=== PATIENT | female | born 1955 | race Caucasian/White ===

== ENCOUNTER 2020-10-15 08:10 | Emergency (ER) | payer MEDICARE, MEDICAID, SELFPAY ==
--- NOTE | 2020-10-15 08:27 | ECG_ITS ---
Test Reason : DIZZINESS Blood Pressure : / mmHG Vent. Rate : 071 BPM Atrial Rate : 071 BPM P-R Int : 164 ms QRS Dur : 108 ms QT Int : 442 ms P-R-T Axes : 042 -04 183 degrees QTc Int : 480 ms Normal sinus rhythm Incomplete left bundle branch block Left ventricular hypertrophy with repolarization abnormality Abnormal ECG When compared with ECG of 06-JAN-2020 15:30, No significant change was found Referred By: Margo Ayala Electronically Signed By:LUCRECIA PILLAI MD
--- NOTE | 2020-10-15 08:45 | XR_ITS ---
EXAMINATION: XR CHEST CLINICAL INFORMATION: Weakness COMPARISON: February 25, 2020, January 06, 2020, and January 01, 2020. TECHNIQUE: 2 views of the chest were obtained. FINDINGS: There is no evidence of acute parenchymal disease, pneumothorax, or pleural effusion. Heart normal size. No evidence of pulmonary edema. There is a prominent right pericardial fat pad seen. Degenerative marginal spurring is seen within multiple levels of the thoracic spine. XR/XR chest 2V IMPRESSION: No acute disease.
[2020-10-15 09:02] VITALS: BP 101/39; PULSE 69; RESP 16; TEMP 36.8; O2SAT 98; BMI 36.3
--- NOTE | 2020-10-15 09:22 | ED.DIZZY ---
HPI - Dizziness General Chief Complaint: Dizziness Stated Complaint: dizzy Time Seen by Provider: 10/15/20 08:27 Source: patient and putty remover Mode of arrival: wheelchair Limitations: language barrier History of Present Illness HPI Narrative: 65-year-old female with a past medical history of insulin-dependent diabetes, hypertension, hyperlipidemia, CKD . The patient also for the last 2 weeks she has felt generally unwell with malaise, dizziness with position changes, right arm pain. She tells me she has actually had right arm pain for several months and this is secondary to a fall. She was seen in this emergency department and had x-rays which were unremarkable. No new injury or trauma. She denies any chest pain, shortness of breath, vision changes, vomiting, diarrhea, cough, fevers, chills, body aches. She is wheelchair-bound at baseline. MD elicited complaint: lightheadedness Onset (ago): week(s) Timing: gradual onset Severity: mild Description: lightheadedness Exacerbating factors: movement/ambulation Relieving factors: remaining still Associated symptoms: other (weakness ) Related Data Previous Rx's Medication Instructions Recorded furosemide 20 mg tablet 20 mg PO DAILY #30 tab 09/15/20 Allergies Allergy/AdvReac Type Severity Reaction Status Date / Time latex [LATEX] Allergy Intermediate ITCHY Verified 10/15/20 10:54 latex Allergy Mild Rash Uncoded 10/15/20 10:55 Review of Systems Review of Systems: Yes all other systems are reviewed and are negative Constitutional: Constitutional: Reports no additional constitutional complaints, Denies body ache(s), Denies chills, Denies fever(s), Denies headache(s) and Reports weakness Eyes: Eyes: Reports no additional eye complaints and Denies change in vision ENT: Reports system reviewed and no additional complaints, except as documented, Reports dizziness, Denies headache(s), Denies nasal congestion, Denies nasal discharge and Denies neck pain Cardiovascular: Cardiovascular: Reports no additional cardiovascular complaints, Denies chest pain, Denies leg edema and Denies dyspnea Respiratory: Respiratory: Reports no additional respiratory complaints, Denies cough and Denies dyspnea Gastrointestinal: Gastrointestinal: Reports no additional gastrointestinal complaints, Denies abdominal pain, Denies diarrhea, Denies nausea and Denies vomiting Genitourinary: Genitourinary: Reports no additional female genitourinary complaints and Denies urinary incontinence Musculoskeletal: Musculoskeletal: Reports no additional musculoskeletal complaints, Denies back pain, Reports arthralgias, Denies joint swelling, Denies neck pain, Denies numbness and Denies tingling Integumentary/Breasts: Skin/Breast: Reports system reviewed and no additional complaints, except as docu and Denies rash Neurologic: Reports system reviewed and no additional complaints, except as documented, Denies Abnormal speech present, Reports dizziness, Denies headache(s), Denies numbness, Denies tingling and Reports weakness PMFSH Past Medical History Attestation statement: The following information was validated with the patient. Source: old records reviewed and nursing notes reviewed Medical History Cholecystectomy planned Diabetes Hernia Hypertension Surgical History H/O: hysterectomy Social History Social History Smoking Status: Never smoker Use of substances other than those prescribed or required for medical reasons: No Advance Directives: No Advance Directives Information Provided: No Physical Exam Vital Signs: Vital Signs: Last Vital Signs Temp 98.2 F 10/15/20 13:28 Pulse 68 10/15/20 14:25 Resp 13 10/15/20 14:25 BP 162/67 H 10/15/20 14:25 Pulse Ox 97 10/15/20 14:25 Body Mass Index 36.3 Const: General: cooperative, healthy appearing, comfortable and no acute distress Orientation/consciousness: patient oriented x3 Limitations: no limitations HENMT: Head: Yes normal to inspection Ears: hearing grossly normal bilaterally General nose exam: Normal external nose present Face and sinus: Yes normal facial exam Mouth: Normal oral and palatal mucosa present Throat: Yes posterior oropharynx normal Eyes: General: appearance normal, both eyes and all related structures Pupils: Equal, round and reactive pupils present Neck: Neck: Yes normal visual inspection Chest: Chest palpation & inspection: normal inspection of the chest Resp: Effort & Inspection: normal respiratory effort Auscultation: clear to auscultation bilaterally Cardio: Rate: regular rate Rhythm: regular rhythm Peripheral pulses: Peripheral pulses 2+ throughout GI: Inspection: Yes normal to inspection Palpation (GI): Soft to palpation and nontender Auscultation: normal bowel sounds Back/Spine/Pelvis: Other: Left AKA Right upper arm tenderness with no obvious deformity or swelling. When patient is talking I was able to palpate the area with no pain elicited. Full range of motion. Neurovascularly intact distally. Thoracic/Lumbar Spine: thoracic and lumbar spine normal to inspection Skin: General skin exam: no rashes or lesions noted Neuro: General: patient oriented x3, no focal motor deficits, normal sensation to monofilament and Unable to assess gait Cranial nerves: Yes Equal, round and reactive pupils present Cognition (Neuro): normal cognition Speech: No Abnormal speech present Gait exam (Neuro): Unable to assess gait Motor exam (neuro): 5/5 motor strength present throughout Sensory Exam: Normal double simultaneous stimulation for sensation Coordination: [id number] test normal Extrem: General: Yes normal to inspection Course Course Course Narrative: 65-year-old female here with lightheadedness with position changes, general malaise and weakness for several weeks. Stable vital signs. No neurological deficits on exam. Unable to assess gait or heel to stark as patient is wheelchair-bound at baseline and has a left AKA. [id number] is normal. Unable to perform orthostatics d/t same. Will check labs, EKG, UA, COVID testing. 1044-renal function at baseline. Elevated potassium at 6.2. No history of same per patient or on review of chart. ? hemolysis. Patient also has the mildly decreased bicarb. Will plan to repeat potassium and check VBG. No EKG changes. 500ml normal saline bolus ordered. Patient has a mild leukocytosis. Her chest x-ray is unremarkable. Urine is pending. Of note, the patient does not have any previous recordings of hyperkalemia. She is taking veltassa 16.8g every other day per patient. 1250-VBG unremarkable. Repeat potassium 5.4. Will give dose of Kayexalate here. All other imaging unremarkable. Patient is feeling improved after receiving a small NSB. Will discuss with primary care doctor Dr Gillis. 1300-d/w with PCP who tells me the patient's veltassa is managed by renal Dr Galeana. Call out to discuss. 1545-discussed with Dr. Galeana from renal. Believes high potassium to be dietary related. Recommended continue Veltassa, following low potassium diet. He is seeing the patient in the office 10/21 and requested repeat potassium prior to visit. Lab slip provided to patient. Additional labs reviewed and unremarkable. Second troponin unchanged from previous. UA negative. COVID test negative. CXR unremarkable. Patient's symptoms of lightheadeness and weakness improved on discharge. Reviewed worrisome signs and symptoms and when to return to the emergency department. Comfortable discharge home. MDM - Dizziness MDM Narrative Medical decision making narrative: ACS, orthostatic hypotension, anemia, electrolyte abnormality, dehydration, underlying infection (UTI, PNA). Less likely ACS with delta troponin, no EKG changes, no reports of chest pain. Less likely anemia with normal labs. Less likely underlying UTI or pneumonia with negative UA and chest x-ray. Unable to rule out orthostatic hypotension as patient is unable to cooperate for exam. Medical Records Attestation: I reviewed the patient's medical records. Lab Data Attestation: I reviewed the patient's lab results. Result diagrams: 10/15/20 09:22 10/15/20 11:46 Labs: Lab Results 10/15/20 10/15/20 10/15/20 Range/Units 09:22 09:22 09:22 WBC 12.3 H (4.8-10.8) X10*3/uL RBC 4.13 L (4.20-5.50) X10*6/uL Hgb 11.1 L (12.0-16.0) g/dl Hct 34.2 L (37-47) % MCV 82.8 (80-98) fL MCH 26.9 L (27.0-33.0) pg MCHC 32.5 (31.0-35.0) g/dl RDW 12.3 (11.0-16.0) % Plt Count 226 (160-400) X10*3/uL MPV 10.7 (9.4-12.3) fL Immature Gran % (Auto) 0.2 (0.0-0.4) % Neut % (Auto) 76.4 H (45-73) % Lymph % (Auto) 15.6 L (20-40) % Cotton % (Auto) 6.7 (2-11) % Eos % (Auto) 0.9 (0-4) % Baso % (Auto) 0.2 (0-2) % Lymph # (Auto) 1.9 (1.2-4.9) X10*3/uL Cotton # (Auto) 0.8 (0.1-1.2) X10*3/uL Eos # (Auto) 0.1 (0.0-0.4) X10*3/uL Baso # (Auto) 0.0 (0.0-0.2) X10*3/uL Abs Immat Gran (auto) 0.03 (0.00-0.03) X10*3/uL Absolute Neuts (auto) 9.4 H (2.0-8.3) X10*3/uL Absolute Nucleated RBC 0.000 (0.0-0.012) X10*3/uL Nucleated RBC % (auto) 0.0 (0.0-0.2) /100WBC Hold Blue Top SEE NOTE VBG pH (7.32-7.43) VBG pCO2 mmHg VBG pO2 mmHg VBG HCO3 mmol/L VBG O2 Saturation % VBG Base Excess mmol/L Sodium 137 (135-145) mmol/L Potassium 6.2 H* (3.3-5.1) mmol/l Chloride 108 (96-108) mmol/L Carbon Dioxide 19 L (22-29) mmol/L Anion Gap 16 (12-20) BUN 43 H (9-16) mg/dL Creatinine 2.84 H (0.5-1.4) mg/dL Estim Creat Clear Calc 17.0 Estimated GFR 17 Random Glucose 190 H (60-115) mg/dL Calcium 8.5 (8.4-10.2) mg/dL Magnesium 1.6 (1.6-2.6) mg/dL Total Bilirubin 0.2 (0.0-1.0) mg/dL Direct Bilirubin < 0.2 (0.0-0.5) mg/dL AST 15 (5-31) U/L ALT 13 (0-31) U/L Alkaline Phosphatase 116 (39-117) U/L Troponin I High Sens (<3.5-17.0) ng/L Total Protein 7.0 (6.5-8.0) g/dL Albumin 3.4 L (3.5-5.0) g/dL Urine Color Urine Appearance Urine pH (5.0-8.0) Ur Specific [place] (1.005-1.025) Urine Protein (NEG-TRACE) MG/DL Urine Glucose (UA) (NEG) MG/DL Urine Ketones (NEG) MG/DL Urine Blood (NEG) Urine Nitrite (NEG) Ur Leukocyte Esterase (NEG) Urine RBC (0) /HPF Urine WBC (0-4) /HPF Ur Squamous Epith Cells /LPF Urine Bacteria /LPF COVID-19 (LUCIUS) (Negative) COVID-19 Clin Com 10/15/20 10/15/20 10/15/20 Range/Units 09:22 09:22 10:33 WBC (4.8-10.8) X10*3/uL RBC (4.20-5.50) X10*6/uL Hgb (12.0-16.0) g/dl Hct (37-47) % MCV (80-98) fL MCH (27.0-33.0) pg MCHC (31.0-35.0) g/dl RDW (11.0-16.0) % Plt Count (160-400) X10*3/uL MPV (9.4-12.3) fL Immature Gran % (Auto) (0.0-0.4) % Neut % (Auto) (45-73) % Lymph % (Auto) (20-40) % Cotton % (Auto) (2-11) % Eos % (Auto) (0-4) % Baso % (Auto) (0-2) % Lymph # (Auto) (1.2-4.9) X10*3/uL Cotton # (Auto) (0.1-1.2) X10*3/uL Eos # (Auto) (0.0-0.4) X10*3/uL Baso # (Auto) (0.0-0.2) X10*3/uL Abs Immat Gran (auto) (0.00-0.03) X10*3/uL Absolute Neuts (auto) (2.0-8.3) X10*3/uL Absolute Nucleated RBC (0.0-0.012) X10*3/uL Nucleated RBC % (auto) (0.0-0.2) /100WBC Hold Blue Top VBG pH (7.32-7.43) VBG pCO2 mmHg VBG pO2 mmHg VBG HCO3 mmol/L VBG O2 Saturation % VBG Base Excess mmol/L Sodium (135-145) mmol/L Potassium Cancelled (3.3-5.1) mmol/l Chloride (96-108) mmol/L Carbon Dioxide (22-29) mmol/L Anion Gap (12-20) BUN (9-16) mg/dL Creatinine (0.5-1.4) mg/dL Estim Creat Clear Calc Estimated GFR Random Glucose (60-115) mg/dL Calcium (8.4-10.2) mg/dL Magnesium (1.6-2.6) mg/dL Total Bilirubin (0.0-1.0) mg/dL Direct Bilirubin (0.0-0.5) mg/dL AST (5-31) U/L ALT (0-31) U/L Alkaline Phosphatase (39-117) U/L Troponin I High Sens 22.2 H (<3.5-17.0) ng/L Total Protein (6.5-8.0) g/dL Albumin (3.5-5.0) g/dL Urine Color Urine Appearance Urine pH (5.0-8.0) Ur Specific [place] (1.005-1.025) Urine Protein (NEG-TRACE) MG/DL Urine Glucose (UA) (NEG) MG/DL Urine Ketones (NEG) MG/DL Urine Blood (NEG) Urine Nitrite (NEG) Ur Leukocyte Esterase (NEG) Urine RBC (0) /HPF Urine WBC (0-4) /HPF Ur Squamous Epith Cells /LPF Urine Bacteria /LPF COVID-19 (LUCIUS) Negative (Negative) COVID-19 Clin Com See Note 10/15/20 10/15/20 10/15/20 Range/Units 10:50 11:45 11:46 WBC (4.8-10.8) X10*3/uL RBC (4.20-5.50) X10*6/uL Hgb (12.0-16.0) g/dl Hct (37-47) % MCV (80-98) fL MCH (27.0-33.0) pg MCHC (31.0-35.0) g/dl RDW (11.0-16.0) % Plt Count (160-400) X10*3/uL MPV (9.4-12.3) fL Immature Gran % (Auto) (0.0-0.4) % Neut % (Auto) (45-73) % Lymph % (Auto) (20-40) % Cotton % (Auto) (2-11) % Eos % (Auto) (0-4) % Baso % (Auto) (0-2) % Lymph # (Auto) (1.2-4.9) X10*3/uL Cotton # (Auto) (0.1-1.2) X10*3/uL Eos # (Auto) (0.0-0.4) X10*3/uL Baso # (Auto) (0.0-0.2) X10*3/uL Abs Immat Gran (auto) (0.00-0.03) X10*3/uL Absolute Neuts (auto) (2.0-8.3) X10*3/uL Absolute Nucleated RBC (0.0-0.012) X10*3/uL Nucleated RBC % (auto) (0.0-0.2) /100WBC Hold Blue Top VBG pH 7.28 L (7.32-7.43) VBG pCO2 43 mmHg VBG pO2 33 mmHg VBG HCO3 20 mmol/L VBG O2 Saturation 54.0 % VBG Base Excess -5.4 mmol/L Sodium (135-145) mmol/L Potassium 5.4 H (3.3-5.1) mmol/l Chloride (96-108) mmol/L Carbon Dioxide (22-29) mmol/L Anion Gap (12-20) BUN (9-16) mg/dL Creatinine (0.5-1.4) mg/dL Estim Creat Clear Calc Estimated GFR Random Glucose (60-115) mg/dL Calcium (8.4-10.2) mg/dL Magnesium (1.6-2.6) mg/dL Total Bilirubin (0.0-1.0) mg/dL Direct Bilirubin (0.0-0.5) mg/dL AST (5-31) U/L ALT (0-31) U/L Alkaline Phosphatase (39-117) U/L Troponin I High Sens (<3.5-17.0) ng/L Total Protein (6.5-8.0) g/dL Albumin (3.5-5.0) g/dL Urine Color YELLOW Urine Appearance CLOUDY Urine pH 6.0 (5.0-8.0) Ur Specific [place] 1.025 (1.005-1.025) Urine Protein 2+ H (NEG-TRACE) MG/DL Urine Glucose (UA) NEG (NEG) MG/DL Urine Ketones NEG (NEG) MG/DL Urine Blood NEG (NEG) Urine Nitrite NEG (NEG) Ur Leukocyte Esterase 1+ H (NEG) Urine RBC 0-2 (0) /HPF Urine WBC TNTC H (0-4) /HPF Ur Squamous Epith Cells 2+ /LPF Urine Bacteria 4+ /LPF COVID-19 (LUCIUS) (Negative) COVID-19 Clin Com 10/15/20 Range/Units 15:15 WBC (4.8-10.8) X10*3/uL RBC (4.20-5.50) X10*6/uL Hgb (12.0-16.0) g/dl Hct (37-47) % MCV (80-98) fL MCH (27.0-33.0) pg MCHC (31.0-35.0) g/dl RDW (11.0-16.0) % Plt Count (160-400) X10*3/uL MPV (9.4-12.3) fL Immature Gran % (Auto) (0.0-0.4) % Neut % (Auto) (45-73) % Lymph % (Auto) (20-40) % Cotton % (Auto) (2-11) % Eos % (Auto) (0-4) % Baso % (Auto) (0-2) % Lymph # (Auto) (1.2-4.9) X10*3/uL Cotton # (Auto) (0.1-1.2) X10*3/uL Eos # (Auto) (0.0-0.4) X10*3/uL Baso # (Auto) (0.0-0.2) X10*3/uL Abs Immat Gran (auto) (0.00-0.03) X10*3/uL Absolute Neuts (auto) (2.0-8.3) X10*3/uL Absolute Nucleated RBC (0.0-0.012) X10*3/uL Nucleated RBC % (auto) (0.0-0.2) /100WBC Hold Blue Top VBG pH (7.32-7.43) VBG pCO2 mmHg VBG pO2 mmHg VBG HCO3 mmol/L VBG O2 Saturation % VBG Base Excess mmol/L Sodium (135-145) mmol/L Potassium (3.3-5.1) mmol/l Chloride (96-108) mmol/L Carbon Dioxide (22-29) mmol/L Anion Gap (12-20) BUN (9-16) mg/dL Creatinine (0.5-1.4) mg/dL Estim Creat Clear Calc Estimated GFR Random Glucose (60-115) mg/dL Calcium (8.4-10.2) mg/dL Magnesium (1.6-2.6) mg/dL Total Bilirubin (0.0-1.0) mg/dL Direct Bilirubin (0.0-0.5) mg/dL AST (5-31) U/L ALT (0-31) U/L Alkaline Phosphatase (39-117) U/L Troponin I High Sens 20.6 H (<3.5-17.0) ng/L Total Protein (6.5-8.0) g/dL Albumin (3.5-5.0) g/dL Urine Color Urine Appearance Urine pH (5.0-8.0) Ur Specific [place] (1.005-1.025) Urine Protein (NEG-TRACE) MG/DL Urine Glucose (UA) (NEG) MG/DL Urine Ketones (NEG) MG/DL Urine Blood (NEG) Urine Nitrite (NEG) Ur Leukocyte Esterase (NEG) Urine RBC (0) /HPF Urine WBC (0-4) /HPF Ur Squamous Epith Cells /LPF Urine Bacteria /LPF COVID-19 (LUCIUS) (Negative) COVID-19 Clin Com Imaging Data Chest x-ray: Attestation: I personally reviewed and interpreted this imaging study as follows: Radiologist's impression: [address] [address] XRay Report Signed Patient: Debbie GuerraMR#: [id number] : 3Acct:[id number] Age/Sex: 65 / FADM Date: 10/15/20 Loc: [facility] Attending Dr: Ordering Physician: KEITH EARL NP Date of Service: 10/15/20 Procedure(s): XR chest 2V Accession Number(s): [id number] cc: KEITH EARL NP~ EXAMINATION: XR CHEST CLINICAL INFORMATION: Weakness COMPARISON: February 25, 2020, January 06, 2020, and January 01, 2020. TECHNIQUE: 2 views of the chest were obtained. FINDINGS: There is no evidence of acute parenchymal disease, pneumothorax, or pleural effusion. Heart normal size. No evidence of pulmonary edema. There is a prominent right pericardial fat pad seen. Degenerative marginal spurring is seen within multiple levels of the thoracic spine. XR/XR chest 2V IMPRESSION: No acute disease. ECG Data Attestation: I personally reviewed and interpreted this ECG as follows: ECG interpretation date: 10/15/20 ECG interpretation time: 08:29 Interpretation: NSR rate 71, incomplete LBBB not new, T wave depressions leads 1, 2, v4, v5, v6 and avl unchanged from previous 01/06/20 Discharge Plan Discharge Clinical Impression: Acute hyperkalemia Patient Disposition: Home, Self-Care Instructions: Hyperkalemia (ED) Additional Instructions: Low potassium diet Continue your medications Keep your appointment 10/[address] Galeana from nephrology I have given you a lab slip to have your labs checked before going to your appointment. Prescriptions: No Action furosemide 20 mg tablet 20 mg PO DAILY Qty: 30 RF: 4 Referrals: Alexys Avila MD [Primary Care Provider] - 2 days Interventions: ED Discharge Assessment Last Done: 10/15/20 17:02 Discharge Date/Time: 10/15/20 17:02
[2020-10-15 09:29] LABS: MANUAL DIFF FLAG NO
[2020-10-15 09:33] LABS: Basophils Percent Auto 0.2 % (0-2); Eosinophils Absolute Auto 0.1 X10*3/uL (0.0-0.4); Eosinophils Percent Auto 0.9 % (0-4); Hematocrit 34.2 % (37-47); Hemoglobin 11.1 g/dl (12.0-16.0); Imm Gran Abs Auto 0.03 X10*3/uL (0.00-0.03); Imm Gran Pct Auto 0.2 % (0.0-0.4); Lymphocytes Absolute Auto 1.9 X10*3/uL (1.2-4.9); Lymphocytes Percent Auto 15.6 % (20-40); Mean Corpuscular HGB Conc 32.5 g/dl (31.0-35.0); Mean Corpuscular Hemoglobin 26.9 pg (27.0-33.0); Mean Corpuscular Volume 82.8 fL (80-98); Mean Platelet Volume 10.7 fL (9.4-12.3); Monocytes Absolute Auto 0.8 X10*3/uL (0.1-1.2); Monocytes Percent Auto 6.7 % (2-11); Neutrophils Absolute Auto 9.4 X10*3/uL (2.0-8.3); Neutrophils Percent Auto 76.4 % (45-73); Platelet Count 226 X10*3/uL (160-400); Red Blood Count 4.13 X10*6/uL (4.20-5.50); Red Cell Distribution Width 12.3 % (11.0-16.0); White Blood Count 12.3 X10*3/uL (4.8-10.8)
[2020-10-15 09:57] LABS: IDNOW Serial# 9DD0AD1C
[2020-10-15 09:58] LABS: COVID-19 Test Negative (Negative)
[2020-10-15 10:06] VITALS: BP 138/57; PULSE 67; RESP 17; O2SAT 99
[2020-10-15 10:15] LABS: Troponin-I High Sensitivity 22.2 ng/L (<3.5-17.0)
[2020-10-15 10:16] LABS: Alanine Aminotransferase 13 U/L (0-31); Albumin Level 3.4 g/dL (3.5-5.0); Alkaline Phosphatase 116 U/L (39-117); Anion Gap 16 (12-20); Aspartate Amino Transferase 15 U/L (5-31); Bilirubin Direct < 0.2 mg/dL (0.0-0.5); Bilirubin Total 0.2 mg/dL (0.0-1.0); Blood Urea Nitrogen 43 mg/dL (9-16); Calcium 8.5 mg/dL (8.4-10.2); Carbon Dioxide 19 mmol/L (22-29); Chloride 108 mmol/L (96-108); Estimated Glomerular Filt Rate 17; Glucose Random 190 mg/dL (60-115); Magnesium 1.6 mg/dL (1.6-2.6); Potassium 6.2 mmol/l (3.3-5.1); Sodium 137 mmol/L (135-145)
[2020-10-15] MEDS: 0.9 % Sodium Chloride 500 ML 999 ML IV (10:43)
[2020-10-15 11:00] LABS: Base Excess VBG -5.4 mmol/L; HCO3 VBG 20 mmol/L; PCO2 VBG 43 mmHg; PO2 VBG 33 mmHg; pH VBG 7.28 (7.32-7.43)
--- NOTE | 2020-10-15 11:20 | PC.NURSE ---
bm x 1 (brown, soft ) in toilet via w/c.
--- NOTE | 2020-10-15 11:34 | PC.NURSE ---
pt has a l bka. pt placed in a w/c and is in the bathroom trying to get urine.
[2020-10-15 11:48] VITALS: BP 98/52; PULSE 71; RESP 18; TEMP 36.7; O2SAT 100
[2020-10-15 12:04] LABS: Glucose Urine UA NEG (NEG); Leukocyte Esterase Urine 1+ (NEG); Nitrite Urine NEG (NEG); Specific Gravity - Urine 1.025 (1.005-1.025); Urine Blood NEG (NEG); Urine Ketones NEG (NEG); Urine Protein 2+ MG/DL (NEG-TRACE)
[2020-10-15 12:07] LABS: Appearance Urine CLOUDY; Color Urine YELLOW
[2020-10-15 12:20] LABS: Potassium 5.4 mmol/l (3.3-5.1)
[2020-10-15 12:53] LABS: Bacteria Urine 4+ /LPF; RBC Urine 0-2 /HPF (0); Squamous Epithelial Cell Urine 2+ /LPF; WBC Urine TNTC /HPF (0-4)
[2020-10-15 13:28] VITALS: BP 154/50; PULSE 69; RESP 14; TEMP 36.8; O2SAT 97
[2020-10-15] MEDS: Sodium Polystyrene Sulfon/Sorb 15 GM/60 ML ORAL.SUSP 30 GM PO (13:30)
[2020-10-15 14:25] VITALS: BP 162/67; PULSE 68; RESP 13; O2SAT 97
--- NOTE | 2020-10-15 15:08 | PC.NURSE ---
Pt incont of moderate amount of liquid stool- parker care provided, linen changed.
[2020-10-15 16:01] LABS: Troponin-I High Sensitivity 20.6 ng/L (<3.5-17.0)
== END 2020-10-15 17:02 | disposition home or self-care (01) ==
PROVIDERS: Nurse Practitioner Family; Emergency Provider Emergency Medicine Emergency Medical Services; PCP Internal Medicine
DX: E23.2 Diabetes insipidus (principal); R42 Dizziness and giddiness; I10 Essential (primary) hypertension; Z20.822 Contact with and (suspected) exposure to COVID-19; Z79.899 Other long term (current) drug therapy; Z79.4 Long term (current) use of insulin
CPT/HCPCS: 36415; 71046; 80048; 80076; 81001; 81003; 82803; 83735; 84132; 84484; 85025; 87086; 87088; 87186; 87635; 93005; 99284

== ENCOUNTER → 2020-11-05 10:36 | Outpatient (BNVA) | payer MEDICARE, MEDICAID, SELFPAY | PROVIDERS: PCP Internal Medicine; Referring Provider Internal Medicine; Visit Provider Nurse Practitioner | DX: Z13.89 Encounter for screening for other disorder (principal) | CPT/HCPCS: Q3014 ==

== ENCOUNTER 2020-11-10 09:31 | Emergency (ER) | payer MEDICARE, MEDICAID, SELFPAY ==
[2020-11-10 09:43] VITALS: BP 91/33; PULSE 70; PULSE 80; RESP 18; TEMP 36.6; O2SAT 97; BMI 38.2
[2020-11-10 11:33] VITALS: BP 137/55; PULSE 67; RESP 14; TEMP 36.6; O2SAT 97
--- NOTE | 2020-11-10 12:04 | ED_ITS ---
HPI - General Adult General Chief complaint: Eye Problems Stated complaint: ELOISA EYE PAIN,LOW BP Time Seen by Provider: 11/10/20 09:42 Source: patient Mode of arrival: ambulatory Limitations: no limitations History of Present Illness HPI narrative: 65-year-old female who presents emergency department for evaluation of a burning sensation in both eyes with yellowish discharge x7 days and foul-smelling urine. The patient states that she has been having a burning sensation in both eyes for the past 7 days. He states the symptoms have gotten worse. She states that she has also noticed a yellowish discharge from both eyes. She denies any pain in her eyes. She denies any change in her vision. She states she gets occasional headaches, she denied nausea or vomiting. She denied fever, chills, cough, rhinorrhea. She states that she has noticed a change in the odor of her urine. She states she has a very foul smell to her urine which is unusual. She denied frequency, urgency or dysuria. The patient states she has a history of laser eye surgery for retinal bleed. Related Data Previous Rx's Medication Instructions Recorded furosemide 20 mg tablet 20 mg PO DAILY #30 tab 09/15/20 metoclopramide HCl 5 mg tablet 5 mg PO QIDACHS 30 Days #120 tab 10/15/20 omeprazole 40 mg capsule,delayed 40 mg PO BID 30 Days #60 cap 11/05/20 release sucralfate 1 gram tablet 2 g PO DAILY 30 Days #60 tab 11/05/20 nitrofurantoin monohyd/m-cryst 100 mg PO Q12H 10 Days #20 cap 11/10/20 [Macrobid] sulfacetamide sodium [Bleph-10] 2 drp OPHTHALMIC (EYE) QID 7 Days 11/10/20 #15 ml Allergies Allergy/AdvReac Type Severity Reaction Status Date / Time latex [LATEX] Allergy Intermediate ITCHY Verified 11/05/20 10:37 Review of Systems Review of Systems: Yes all other systems are reviewed and are negative Neurologic: Reports Abnormal speech present PMFSH Past Medical History PMFSH Narrative: The patient denies tobacco, alcohol and drug use. She lives at home with her family. Medical History Cholecystectomy planned Diabetes Hernia Hypertension Surgical History H/O: hysterectomy History of esophagogastroduodenoscopy (EGD) Hx of colonoscopy Hx of eye surgery Family History Family History Father Lung cancer Mother Diabetes HTN (hypertension) Heart disease Sister Diabetes Heart disease Brother Heart disease Son Diabetes Daughter Diabetes Social History Social History Alcohol intake: current Alcohol intake frequency: does not drink Smoking Status: Never smoker Advance Directives: No Advance Directives Information Provided: No Physical Exam Vital Signs: Vital Signs: Last Vital Signs Temp 97.9 F 11/10/20 11:33 Pulse 78 11/10/20 14:06 Resp 19 11/10/20 14:06 BP 155/76 H 11/10/20 14:06 Pulse Ox 98 11/10/20 14:06 Body Mass Index 38.2 Const: General: cooperative and healthy appearing Orientation/consciousness: oriented to person and oriented to place Limitations: no limitations HENMT: Head: Yes normal to inspection, Yes normocephalic and Yes atraumatic Ears: external ears normal General nose exam: Normal external nose present Face and sinus: Yes normal facial exam Mouth: Normal oral and palatal mucosa present Throat: Yes posterior oropharynx normal Eyes: Periorbital: periorbital findings normal Eyelids: Yes eyelids normal Conjunctivae: conjunctivae normal Sclerae: scleral abnormal bilateral scleral injection diffuse and other (Bilateral yellowish discharge noted on the patient's eyelashes) Corneas: corneas normal Pupils: Equal, round and reactive pupils present Direct Ophthalmoscopy: normal light reflex Neck: Neck: Yes full ROM, Yes no lymphadenopathy, Yes no meningeal signs, Yes trachea midline and Yes supple Chest: Chest palpation & inspection: normal inspection of the chest and normal palpation of entire chest wall Resp: Effort & Inspection: normal respiratory effort and able to speak in complete sentences Auscultation: clear to auscultation bilaterally Cardio: Rate: regular rate Rhythm: regular rhythm Heart sounds: S1 normal heart sound present, S2 normal heart sound present and no murmurs GI: Inspection: Yes normal to inspection Palpation (GI): Soft to palpation, nontender, no guarding, not rigid and No hepatosplenomegaly present : General: Yes no CVA tenderness Back/Spine/Pelvis: Back: no CVA tenderness Cervical Spine: normal cervical lordosis Thoracic/Lumbar Spine: thoracic and lumbar spine normal to inspection Skin: Lesions: no lesions Rashes: no rashes Wounds: no wounds Neuro: General: oriented to person, oriented to place and no meningeal signs Cranial nerves: Yes CN's II-XII intact bilaterally and Yes Equal, round and reactive pupils present Cognition (Neuro): normal cognition Speech: Abnormal speech present Motor exam (neuro): 5/5 motor strength present throughout Extrem: General: Yes normal to inspection and Yes full ROM Psych: Appearance: well kempt Mental Status: mental status grossly normal Speech and movement: Normal speech and movement present Affect: normal af fect Attitude: cooperative Thought process: Normal thought process present Thought content: Normal thought content present Course Course Course Narrative: 65-year-old female who presents emergency department for evaluation of burning in both her eyes with a yellowish discharge x1 week and change in the odor of her urine. Physical examination is consistent with bilateral conjunctivitis. The patient's urinalysis did reveal 2+ leukocyte esterase, microscopic field 10-14 WBCs and 3+ bacteria. The patient had a E coli urinary tract on 10/15/2020 which was sensitive to ceftriaxone, gentamicin, levofloxacin and Macrobid. The patient was given Macrobid 1 tablet orally. She was started on Macrobid 1 pill twice a day for 10 days. I will treat her conjunctivitis with Bleph 10 eyedrops, 2 drops in each eye 4 times a day for 1 week. Patient was given verbal and printed instructions and discharged home. Medical Decision Making Lab Data Labs: Lab Results 11/10/20 Range/Units 13:21 Urine Color YELLOW Urine Appearance CLOUDY Urine pH 6.0 (5.0-8.0) Ur Specific [place] 1.025 (1.005-1.025) Urine Protein 2+ H (NEG-TRACE) MG/DL Urine Glucose (UA) NEG (NEG) MG/DL Urine Ketones NEG (NEG) MG/DL Urine Blood NEG (NEG) Urine Nitrite NEG (NEG) Ur Leukocyte Esterase 2+ H (NEG) Urine RBC 0 (0) /HPF Urine WBC 10-14 H (0-4) /HPF Ur Squamous Epith Cells TRACE /LPF Urine Bacteria 3+ /LPF Discharge Plan Discharge Clinical Impression: Conjunctivitis of both eyes, Urinary tract infection Patient Disposition: Home, Self-Care Instructions: Acute Urinary Retention in Women (ED), Conjunctivitis (ED) Additional Instructions: Your eye exam is consistent with an infection of both eyes. Use Bleph 10, 2 drops in both eyes 4 times a day for 7 days. Your urine is consistent with a urine infection/bladder infection. You received Macrobid 1 dose here in the emergency department Take your next dose of Macrobid this evening. Take Macrobid 1 pill every 12 hours for 10 days to treat your urine infection. Take Tylenol (acetaminophen) 500 mg pills, 2 pills every 4 to 6 hours as needed for pain. Follow-up with your doctor in 2 days. Please return to the emergency department if your symptoms get worse or if you develop any symptoms that are concerning to you. Prescriptions: New sulfacetamide sodium [Bleph-10] 10 % drops 2 drp ophthalmic (eye) QID 7 Days Qty: 15 RF: 0 nitrofurantoin monohyd/m-cryst [Macrobid] 100 mg capsule 100 mg PO Q12H 10 Days Qty: 20 RF: 0 No Action furosemide 20 mg tablet 20 mg PO DAILY Qty: 30 RF: 4 metoclopramide HCl 5 mg tablet 5 mg PO QIDACHS 30 Days Qty: 120 RF: 2 omeprazole 40 mg capsule,delayed release(DR/EC) 40 mg PO BID 30 Days Qty: 60 RF: 6 sucralfate [Carafate] 1 gram tablet 2 g PO DAILY 30 Days Qty: 60 RF: 6 Print Language: [place] Verdean
[2020-11-10 13:36] LABS: Glucose Urine UA NEG (NEG); Leukocyte Esterase Urine 2+ (NEG); Nitrite Urine NEG (NEG); Specific Gravity - Urine 1.025 (1.005-1.025); UACC Culture Trigger YES; Urine Blood NEG (NEG); Urine Ketones NEG (NEG); Urine Protein 2+ MG/DL (NEG-TRACE)
[2020-11-10 13:37] LABS: Appearance Urine CLOUDY; Color Urine YELLOW
[2020-11-10 13:48] LABS: Bacteria Urine 3+ /LPF; RBC Urine 0 /HPF (0); Squamous Epithelial Cell Urine TRACE /LPF
[2020-11-10 14:06] VITALS: BP 155/76; PULSE 78; RESP 19; O2SAT 98
[2020-11-10] MEDS: Nitrofurantoin Monohyd/M-Cryst 100 MG CAPSULE PO (15:29)
== END 2020-11-10 16:33 | disposition home or self-care (01) ==
PROVIDERS: Emergency Provider Emergency Medicine Emergency Medical Services; PCP Internal Medicine
DX: H10.33 Unspecified acute conjunctivitis, bilateral (principal); N39.0 Urinary tract infection, site not specified; R33.9 Retention of urine, unspecified; H57.13 Ocular pain, bilateral; Z79.899 Other long term (current) drug therapy
CPT/HCPCS: 81001; 81003; 87086; 87088; 87186; 99283; 99284

== ENCOUNTER → 2020-12-08 08:59 | Outpatient (BNVA) | payer MEDICARE, MEDICAID, SELFPAY | PROVIDERS: PCP Internal Medicine; Visit Provider Internal Medicine Cardiovascular Disease | DX: R42 Dizziness and giddiness (principal); I95.9 Hypotension, unspecified; I42.8 Other cardiomyopathies; I50.9 Heart failure, unspecified; Z79.82 Long term (current) use of aspirin; Z79.899 Other long term (current) drug therapy | CPT/HCPCS: 99212 ==

== ENCOUNTER 2020-12-24 08:54 | Inpatient (IN) | payer MEDICARE, MEDICAID, SELFPAY ==
[2020-12-24] VITALS (8 sets, daily range): BP systolic 140–188; BP diastolic 64–83; PULSE 62–78; RESP 16–20; TEMP 36.3–36.9; O2SAT 92–98; BMI 33.4; BMI 38.4
--- NOTE | 2020-12-24 | ECG_ITS ---
Test Reason : REPEAT Blood Pressure : / mmHG Vent. Rate : 074 BPM Atrial Rate : 074 BPM P-R Int : 160 ms QRS Dur : 114 ms QT Int : 462 ms P-R-T Axes : 043 004 203 degrees QTc Int : 512 ms Normal sinus rhythm Incomplete left bundle branch block Left ventricular hypertrophy with repolarization abnormality Prolonged QT Abnormal ECG When compared with ECG of 24-DEC-2020 09:19, No significant change was found Referred By: Cory Francis Electronically Signed By:MYESHA FREY
--- NOTE | ~2020-12-24 | NM_ITS ---
Myocardial perfusion study Indication: Cardiomyopathy to evaluate for myocardial ischemia Technique: The patient was brought in for a Lexiscan perfusion study on 12/28/2020. Patient performed low-level exercise and was injected 0.4 mg of Lexiscan intravenously. Within a minute of injection, 30 mCi of sestamibi was given intravenously. Images were obtained using the SPECT gamma camera interlaced with the gating device. Images were obtained in supine position. Resting perfusion study was performed on 12/25/2020. Patient was administered 30 mCi of sestamibi intravenously at rest. Images were then obtained in supine position. Images obtained with and without CT attenuation. Total DLP 107mGy-cm. Images were processed with the software and compared side to side in short axis, horizontal long axis and vertical long axis views. Findings: The stress perfusion study showed non attenuated images show minimally reduced uptake in the distal lateral wall of the LV myocardium. Remainder of the LV myocardium is normally perfused. Attenuation corrected images show normal uptake of radiotracer in all segments of LV myocardium. The gated study shows reduced LV systolic function with calculated LVEF of 25%. LV cavity is mildly dilated size. The gated study shows diffusely reduced wall thickening and contraction of segments. Resting study shows no significant change in perfusion pattern compared to stress perfusion study. Gating at rest reveals diffuse hypokinesis offal wall with ejection fraction at 35%. The findings are consistent with no significant reversible defect suggestive of ischemia.. NM/NM saqib perf SPECT rest & str Impression: 1. Myocardial perfusion imaging study shows normal myocardial perfusion 2. Gated LVEF is 35% 3. Transient ischemic dilatation not present EKG is nondiagnostic for ischemia
--- NOTE | ~2020-12-24 | XR_ITS ---
EXAMINATION: XR CHEST CLINICAL INFORMATION: Chest wall pain COMPARISON: October 15, 2020 TECHNIQUE: Frontal view of the chest was obtained. FINDINGS: There is some patchy disease at the left lung base which may be related to atelectasis. There is some hazy density which may be related to a small left pleural effusion. No pneumothorax. Heart normal size. No evidence of pulmonary edema. XR/XR chest 1V IMPRESSION: Question small left pleural effusion with some retrocardiac disease within the left lower lobe.
--- NOTE | 2020-12-24 09:00 | ED_ITS ---
HPI - URI/Sore Throat General Chief Complaint: General Medical Stated Complaint: SOB Time Seen by Provider: 12/24/20 09:00 Source: patient Mode of arrival: wheelchair Limitations: language barrier (Speak some broken [place]an non destructive testing supervisor present) History of Present Illness HPI Narrative: 65-year-old female with past medical history that is significant for cardiomyopathy, congestive heart failure according to EMR last echo 11/12/2014 showed EF 40-45%, chronic kidney disease, diabetes, diabetes along with other past medical and surgical history as noted below presents today with complaint of 3 days of cough with associated chest pain that is described as worsening with cough and feels like soreness. States she got the 2nd COVID vaccine of the [employer] and unsure if this is related. In addition to this she reports increase shortness of breath over the past couple days. Related Data Home Medications Medication Instructions Recorded Confirmed aspirin 81 mg tablet,delayed 81 mg PO BEDTIME 12/08/20 12/24/20 release calcium carbonate 500 mg (1,250 1 tab PO BID 12/08/20 12/24/20 mg)-vitamin D3 400 unit tablet citalopram 20 mg tablet 20 mg PO DAILY 12/08/20 12/24/20 gabapentin 100 mg capsule 100 mg PO BID 12/08/20 12/24/20 insulin aspart U-100 100 unit/mL 8 - 24 unit SUBCUT TID 12/08/20 12/24/20 (3 mL) subcutaneous pen insulin detemir U-100 100 unit/mL 64 unit SUBCUT DAILY 12/08/20 12/24/20 (3 mL) subcutaneous pen magnesium oxide 400 mg (241.3 mg 400 mg PO BID 12/08/20 12/24/20 magnesium) tablet rosuvastatin 10 mg tablet 10 mg PO BEDTIME 12/08/20 12/24/20 trazodone 50 mg tablet 50 mg PO BEDTIME 12/08/20 12/24/20 Previous Rx's Medication Instructions Recorded metoclopramide HCl 5 mg tablet 5 mg PO QIDACHS 30 Days #120 tab 10/15/20 omeprazole 40 mg capsule,delayed 40 mg PO BID 30 Days #60 cap 11/05/20 release sucralfate 1 gram tablet 2 g PO DAILY 30 Days #60 tab 11/05/20 carvedilol 3.125 mg tablet 3.125 mg PO BID #60 tab 12/08/20 furosemide 20 mg tablet 10 mg PO Q OTHER DAY #20 tab 12/08/20 hydralazine 10 mg tablet 10 mg PO BID #60 tab 12/08/20 Allergies Allergy/AdvReac Type Severity Reaction Status Date / Time latex [LATEX] Allergy Intermediate ITCHY Verified 11/05/20 10:37 Review of Systems Review of Systems: Constitutional: No Weight loss, No Fever, No Chills, No Night Sweats, No Fatigue, No Malaise ENT/Mouth: No Hearing loss, No Ear Pain, No Nasal Congestion, No Sinus Pain, No Hoarseness, No sore throat, No Rhinorrhea, No Swallowing Difficulty Eyes: No Eye Pain, No Swelling, No Redness, No Foreign Body, No Discharge, No Vision Changes Cardiovascular: + Chest Pain, + SOB, No Dyspnea on Exertion, No Orthopnea, No Edema, No Palpitations Respiratory: + Cough, No Sputum, No Wheezing, No Smoke Exposure, No Dyspnea Gastrointestinal: No Nausea, No Vomiting, No Diarrhea, No Constipation, No abdominal Pain, No Hematochezia, No Melena Genitourinary: no irregular bleeding, No Dysuria, No Urinary Frequency, No Hematuria, No Urinary Incontinence, No Urgency, No Flank Pain, No Urinary Flow Changes, No Hesitancy Musculoskeletal: No joint pain, No Myalgias, No Joint Swelling Skin: No Skin Lesions, No rash Neuro: No Weakness, No Numbness, No Paresthesias, No Loss of Consciousness, No Dizziness, No Headache Psych: No Social Issues Heme/Lymph: No Bruising, No Bleeding,No Lymphadenopathy Endocrine: No Polyuria, No Polydipsia, No Temperature Intolerance Yes all other systems are reviewed and are negative [facility] Past Medical History Medical History Cholecystectomy planned CKD (chronic kidney disease) Congestive heart failure Diabetes mellitus Hernia HTN (hypertension) Nonischemic cardiomyopathy Surgical History H/O: hysterectomy History of esophagogastroduodenoscopy (EGD) Hx of colonoscopy Hx of eye surgery Family History Family History Father Lung cancer Mother Diabetes HTN (hypertension) Heart disease Sister Diabetes Heart disease Brother Heart disease Son Diabetes Daughter Diabetes Social History Social History Alcohol intake: never Smoking Status: Never smoker Use of substances other than those prescribed or required for medical reasons: No Advance Directives: No Advance Directives Information Provided: No Physical Exam Vital Signs: Vital Signs: Last Vital Signs Temp 98.1 F 12/24/20 15:36 Pulse 78 12/24/20 15:36 Resp 16 12/24/20 15:36 BP 188/83 H 12/24/20 15:36 Pulse Ox 98 12/24/20 15:36 Body Mass Index 33.4 Reviewed Const: General: comfortable; No acute distress or intoxicated appearing Nutritional Appearance: overweight Orientation/consciousness: patient oriented x3 HENMT: Head: Yes normal to inspection Ears: hearing grossly normal bilaterally Eyes: General: appearance normal, both eyes and all related structures Visual Hammond: normal visual hammond by confrontation Neck: Neck: Yes normal visual inspection, No positive Brudzinski's sign, No positive Kernig's sign and No tender Thyroid: Thyroid normal Chest: Chest palpation & inspection: normal inspection of the chest Resp: Effort & Inspection: normal respiratory effort Auscultation: clear to auscultation bilaterally Cardio: Jugular venous distension: no JVD Rhythm: regular rhythm Heart sounds: S1 normal heart sound present and S2 normal heart sound present GI: Inspection: Yes normal to inspection Palpation (GI): Soft to palpation Percussion: Yes normal to percussion Auscultation: normal bowel sounds : General: Yes no CVA tenderness Back/Spine/Pelvis: Back: no CVA tenderness Skin: General skin exam: no rashes or lesions noted Neuro: General: patient oriented x3 Extrem: General: Yes normal to inspection Course Reevaluation(s) Reevaluation #1: 65-year-old female primarily Icelandic-speaking the non destructive testing supervisor present also daughter Adelita via phone who presents with cough and associated chest pain seems more musculoskeletal as well reports subjective more shortness of breath. No changes in weight. History of HF on the Lasix. Will check labs, EKG chest x-ray at this point in no acute distress home monitor and dispo per plan. Reevaluation #2: Resting comfortably, H&H 8.7 historically in the old EMR she runs anywhere from 8-11. Her K is slightly bumped renal function at baseline BN P at baseline. Will give her dose of Kayexalate, fiber cc of normal saline and 20 mg of IV Lasix. No chest pain or discomfort at this time. EKG nondiagnostic from previous, October troponin 20.6 today 67.2. Given her atypical cardiac symptoms will repeat troponin at 3 hours. Reevaluation #3: Remains without chest pain. Repeat labs after treatment shows improved K, repeat EKG no acute change. Troponin repeat with positive delta 1 from 67-168. Case discussed with cardiology Dr. Vides, recommendation for heparin drip and echo and thus case discussed with hospitalist for admission. Consultations Consultation #1: Cardiology Dr. Vides Consultation #2: Hospitalist Dr. Rodriguez MDM - URI/Sore Throat Lab Data Result diagrams: 12/24/20 09:29 12/24/20 13:32 Labs: Lab Results 12/24/20 12/24/20 12/24/20 Range/Units 09:29 09:29 09:29 WBC 10.4 (4.8-10.8) X10*3/uL RBC 3.37 L (4.20-5.50) X10*6/uL Hgb 8.7 L D (12.0-16.0) g/dl Hct 27.9 L (37-47) % MCV 82.8 (80-98) fL MCH 25.8 L (27.0-33.0) pg MCHC 31.2 (31.0-35.0) g/dl RDW 13.2 (11.0-16.0) % Plt Count 197 (160-400) X10*3/uL MPV 10.3 (9.4-12.3) fL Immature Gran % (Auto) 0.8 H (0.0-0.4) % Neut % (Auto) 66.4 (45-73) % Lymph % (Auto) 22.2 (20-40) % [place] % (Auto) 7.6 (2-11) % Eos % (Auto) 2.7 (0-4) % Baso % (Auto) 0.3 (0-2) % Lymph # (Auto) 2.3 (1.2-4.9) X10*3/uL [place] # (Auto) 0.8 (0.1-1.2) X10*3/uL Eos # (Auto) 0.3 (0.0-0.4) X10*3/uL Baso # (Auto) 0.0 (0.0-0.2) X10*3/uL Abs Immat Gran (auto) 0.08 H (0.00-0.03) X10*3/uL Absolute Neuts (auto) 6.9 (2.0-8.3) X10*3/uL Absolute Nucleated RBC 0.000 (0.0-0.012) X10*3/uL Nucleated RBC % (auto) 0.0 (0.0-0.2) /100WBC PT 12.5 (10.8-13.0) SEC INR 1.1 (0.9-1.1) APTT 30.6 (24.1-38.0) SEC Sodium 141 (135-145) mmol/L Potassium 6.3 H* (3.3-5.1) mmol/L Chloride 111 H (96-108) mmol/L Carbon Dioxide 20 L (22-29) mmol/L Anion Gap 16 (12-20) BUN 51 H (9-16) mg/dL Creatinine 2.92 H (0.5-1.4) mg/dL Estim Creat Clear Calc 15.8 Estimated GFR 16 Random Glucose 246 H (60-115) mg/dL Calcium 8.2 L (8.4-10.2) mg/dL Total Bilirubin 0.3 (0.0-1.0) mg/dL AST 17 (5-31) U/L ALT 10 (0-31) U/L Alkaline Phosphatase 131 H (39-117) U/L Troponin I High Sens (<3.5-17.0) ng/L B-Natriuretic Peptide (<100) pg/mL Total Protein 6.8 (6.5-8.0) g/dL Albumin 3.4 L (3.5-5.0) g/dL Coronavirus (PCR) (Negative) Influenza Type A (PCR) (Negative) Influenza Type B (PCR) (Negative) RSV RNA Qual (PCR) (Negative) 03/25/21 03/25/21 03/25/21 Range/Units 09:29 09:33 13:32 WBC (4.8-10.8) X10*3/uL RBC (4.20-5.50) X10*6/uL Hgb (12.0-16.0) g/dl Hct (37-47) % MCV (80-98) fL MCH (27.0-33.0) pg MCHC (31.0-35.0) g/dl RDW (11.0-16.0) % Plt Count (160-400) X10*3/uL MPV (9.4-12.3) fL Immature Gran % (Auto) (0.0-0.4) % Neut % (Auto) (45-73) % Lymph % (Auto) (20-40) % [place] % (Auto) (2-11) % Eos % (Auto) (0-4) % Baso % (Auto) (0-2) % Lymph # (Auto) (1.2-4.9) X10*3/uL [place] # (Auto) (0.1-1.2) X10*3/uL Eos # (Auto) (0.0-0.4) X10*3/uL Baso # (Auto) (0.0-0.2) X10*3/uL Abs Immat Gran (auto) (0.00-0.03) X10*3/uL Absolute Neuts (auto) (2.0-8.3) X10*3/uL Absolute Nucleated RBC (0.0-0.012) X10*3/uL Nucleated RBC % (auto) (0.0-0.2) /100WBC PT (10.8-13.0) SEC INR (0.9-1.1) APTT (24.1-38.0) SEC Sodium 143 (135-145) mmol/L Potassium 5.3 H (3.3-5.1) mmol/L Chloride 112 H (96-108) mmol/L Carbon Dioxide 19 L (22-29) mmol/L Anion Gap 17 (12-20) BUN 50 H (9-16) mg/dL Creatinine 2.91 H (0.5-1.4) mg/dL Estim Creat Clear Calc 15.8 Estimated GFR 16 Random Glucose 243 H (60-115) mg/dL Calcium 8.5 (8.4-10.2) mg/dL Total Bilirubin (0.0-1.0) mg/dL AST (5-31) U/L ALT (0-31) U/L Alkaline Phosphatase (39-117) U/L Troponin I High Sens 67.2 H D (<3.5-17.0) ng/L B-Natriuretic Peptide 426 H (<100) pg/mL Total Protein (6.5-8.0) g/dL Albumin (3.5-5.0) g/dL Coronavirus (PCR) NEGATIVE (Negative) Influenza Type A (PCR) NEGATIVE (Negative) Influenza Type B (PCR) NEGATIVE (Negative) RSV RNA Qual (PCR) NEGATIVE (Negative) 12/24/20 Range/Units 13:32 WBC (4.8-10.8) X10*3/uL RBC (4.20-5.50) X10*6/uL Hgb (12.0-16.0) g/dl Hct (37-47) % MCV (80-98) fL MCH (27.0-33.0) pg MCHC (31.0-35.0) g/dl RDW (11.0-16.0) % Plt Count (160-400) X10*3/uL MPV (9.4-12.3) fL Immature Gran % (Auto) (0.0-0.4) % Neut % (Auto) (45-73) % Lymph % (Auto) (20-40) % [place] % (Auto) (2-11) % Eos % (Auto) (0-4) % Baso % (Auto) (0-2) % Lymph # (Auto) (1.2-4.9) X10*3/uL [place] # (Auto) (0.1-1.2) X10*3/uL Eos # (Auto) (0.0-0.4) X10*3/uL Baso # (Auto) (0.0-0.2) X10*3/uL Abs Immat Gran (auto) (0.00-0.03) X10*3/uL Absolute Neuts (auto) (2.0-8.3) X10*3/uL Absolute Nucleated RBC (0.0-0.012) X10*3/uL Nucleated RBC % (auto) (0.0-0.2) /100WBC PT (10.8-13.0) SEC INR (0.9-1.1) APTT (24.1-38.0) SEC Sodium (135-145) mmol/L Potassium (3.3-5.1) mmol/L Chloride (96-108) mmol/L Carbon Dioxide (22-29) mmol/L Anion Gap (12-20) BUN (9-16) mg/dL Creatinine (0.5-1.4) mg/dL Estim Creat Clear Calc Estimated GFR Random Glucose (60-115) mg/dL Calcium (8.4-10.2) mg/dL Total Bilirubin (0.0-1.0) mg/dL AST (5-31) U/L ALT (0-31) U/L Alkaline Phosphatase (39-117) U/L Troponin I High Sens 168.0 H D (<3.5-17.0) ng/L B-Natriuretic Peptide 424 H (<100) pg/mL Total Protein (6.5-8.0) g/dL Albumin (3.5-5.0) g/dL Coronavirus (PCR) (Negative) Influenza Type A (PCR) (Negative) Influenza Type B (PCR) (Negative) RSV RNA Qual (PCR) (Negative) Imaging Data Chest x-ray: Radiologist's impression: [address] [id number] ReportSigned Patient: Debbie Guerra#: [id number]: 3Acct:[id number]/Sex: 65 / FADM Date: 12/24/20Loc: E[address] Dr: Ordering Physician: Cory Francis NP Date of Service: 12/24/20 Procedure(s): XR chest 1V Accession Number(s): [id number] cc: Cory Francis FARM OPERATOR~ EXAMINATION: XR CHEST CLINICAL INFORMATION: Chest wall pain COMPARISON: October 15, 2020 TECHNIQUE: Frontal view of the chest was obtained. FINDINGS: There is some patchy disease at the left lung base which may be related to atelectasis. There is some hazy density which may be related to a small left pleural effusion. No pneumothorax. Heart normal size. No evidence of pulmonary edema. XR/XR chest 1V IMPRESSION: Question small left pleural effusion with some retrocardiac disease within the left lower lobe. Dictated By:ARMANDO RING V MDSigned By:<Electronically signed by ARMANDO RING MD in OV>12/24/20 1012 DD/ 0909TD/TT: Rn [facility]: ECG Data Interpretation: EKG 1. Normal sinus rhythm Rate 77 Incomplete left bundle branch block ST & T wave abnormality, consider inferolateral ischemia Prolonged QT Abnormal ECG compared with ECG of 15-OCT-2020 08:29, EKG 2. Normal sinus rhythm Rate 74 Incomplete left bundle branch block LVH No change from previous Discharge Plan Discharge Clinical Impression: Atypical chest pain, Non-ST elevated myocardial infarction Patient Disposition: Admitted As Inpatient Prescriptions: No Action metoclopramide HCl 5 mg tablet 5 mg PO QIDACHS 30 Days Qty: 120 RF: 2 omeprazole 40 mg capsule,delayed release(DR/EC) 40 mg PO BID 30 Days Qty: 60 RF: 6 sucralfate [Carafate] 1 gram tablet 2 g PO DAILY 30 Days Qty: 60 RF: 6 insulin aspart U-100 100 unit/mL (3 mL) insulin pen 8 - 24 unit subcut TID RF: 0 gabapentin 100 mg capsule 100 mg PO BID RF: 0 rosuvastatin 10 mg tablet 10 mg PO BEDTIME RF: 0 magnesium oxide 400 mg (241.3 mg magnesium) tablet 400 mg PO BID RF: 0 aspirin 81 mg tablet,delayed release (DR/EC) 81 mg PO BEDTIME RF: 0 trazodone 50 mg tablet 50 mg PO BEDTIME RF: 0 citalopram 20 mg tablet 20 mg PO DAILY RF: 0 calcium carbonate-vitamin D3 500 mg(1,250mg) -400 unit tablet 1 tab PO BID RF: 0 Levemir FlexTouch U-100 Insuln 100 unit/mL (3 mL) insulin pen 64 unit subcut DAILY RF: 0 hydralazine 10 mg tablet 10 mg PO BID Qty: 60 RF: 2 carvedilol [Coreg] 3.125 mg tablet 3.125 mg PO BID Qty: 60 RF: 2 furosemide [Lasix] 20 mg tablet 10 mg PO Q OTHER DAY Qty: 20 RF: 2
--- NOTE | 2020-12-24 09:09 | ECG_ITS ---
Test Reason : SOB Blood Pressure : / mmHG Vent. Rate : 077 BPM Atrial Rate : 077 BPM P-R Int : 158 ms QRS Dur : 116 ms QT Int : 452 ms P-R-T Axes : 049 012 216 degrees QTc Int : 511 ms Normal sinus rhythm Incomplete left bundle branch block ST & T wave abnormality, consider inferolateral ischemia Prolonged QT Abnormal ECG When compared with ECG of 15-OCT-2020 08:29, T wave inversion more evident in Inferior leads Referred By: Cory Francis Electronically Signed By:MYESHA FREY
[2020-12-24 09:33] LABS: MANUAL DIFF FLAG NO
[2020-12-24 09:34] LABS: Basophils Percent Auto 0.3 % (0-2); Eosinophils Absolute Auto 0.3 X10*3/uL (0.0-0.4); Eosinophils Percent Auto 2.7 % (0-4); Hematocrit 27.9 % (37-47); Hemoglobin 8.7 g/dl (12.0-16.0); Imm Gran Abs Auto 0.08 X10*3/uL (0.00-0.03); Imm Gran Pct Auto 0.8 % (0.0-0.4); Lymphocytes Absolute Auto 2.3 X10*3/uL (1.2-4.9); Lymphocytes Percent Auto 22.2 % (20-40); Mean Corpuscular HGB Conc 31.2 g/dl (31.0-35.0); Mean Corpuscular Hemoglobin 25.8 pg (27.0-33.0); Mean Corpuscular Volume 82.8 fL (80-98); Mean Platelet Volume 10.3 fL (9.4-12.3); Monocytes Absolute Auto 0.8 X10*3/uL (0.1-1.2); Monocytes Percent Auto 7.6 % (2-11); Neutrophils Absolute Auto 6.9 X10*3/uL (2.0-8.3); Neutrophils Percent Auto 66.4 % (45-73); Platelet Count 197 X10*3/uL (160-400); Red Blood Count 3.37 X10*6/uL (4.20-5.50); Red Cell Distribution Width 13.2 % (11.0-16.0); White Blood Count 10.4 X10*3/uL (4.8-10.8)
[2020-12-24 09:40] LABS: INTERNATIONAL NORM RATIO 1.1 (0.9-1.1); Prothrombin Time 12.5 SEC (10.8-13.0)
[2020-12-24 09:43] LABS: Partial Thromboplastin Time 30.6 SEC (24.1-38.0)
[2020-12-24 10:12] LABS: Alanine Aminotransferase 10 U/L (0-31); Albumin Level 3.4 g/dL (3.5-5.0); Alkaline Phosphatase 131 U/L (39-117); Anion Gap 16 (12-20); Aspartate Amino Transferase 17 U/L (5-31); Bilirubin Total 0.3 mg/dL (0.0-1.0); Blood Urea Nitrogen 51 mg/dL (9-16); Calcium 8.2 mg/dL (8.4-10.2); Carbon Dioxide 20 mmol/L (22-29); Chloride 111 mmol/L (96-108); Creatinine Clr Calc Pharmacy 15.8; Estimated Glomerular Filt Rate 16; Glucose Random 246 mg/dL (60-115); Potassium 6.3 mmol/L (3.3-5.1); Sodium 141 mmol/L (135-145); Total Protein 6.8 g/dL (6.5-8.0)
[2020-12-24 10:13] LABS: B Type Natriuretic Peptide 426 pg/mL (<100); Troponin-I High Sensitivity 67.2 ng/L (<3.5-17.0)
[2020-12-24] MEDS: 0.9 % Sodium Chloride 500 ML IV (10:58)
[2020-12-24] MEDS: Furosemide 20 MG/2 ML VIAL IVPUSH (10:58)
[2020-12-24] MEDS: Sodium Polystyrene Sulfon/Sorb 15 GM/60 ML ORAL.SUSP 60 GM PO (10:58)
[2020-12-24 11:31] LABS: Influenza A PCR NEGATIVE (Negative); Influenza B PCR NEGATIVE (Negative); Resp Syncy Virus RNA Qual PCR NEGATIVE (Negative); SARS COV2 PCR INHOUSE NEGATIVE (Negative)
--- NOTE | 2020-12-24 13:00 | PC.NURSE ---
pt requesting to use bathroom, unable to make it to bathroom before having bm d/t kayexelate. pt had large soft bm, missed toilet, bm all over wheelchair and floor. pt and restroom cleaned, back to bed w/o incident. unable to obtain ua spec, wctm.
[2020-12-24 14:11] LABS: B Type Natriuretic Peptide 424 pg/mL (<100)
[2020-12-24 14:16] LABS: Anion Gap 17 (12-20); Blood Urea Nitrogen 50 mg/dL (9-16); Calcium 8.5 mg/dL (8.4-10.2); Carbon Dioxide 19 mmol/L (22-29); Chloride 112 mmol/L (96-108); Creatinine Clr Calc Pharmacy 15.8; Estimated Glomerular Filt Rate 16; Glucose Random 243 mg/dL (60-115); Potassium 5.3 mmol/L (3.3-5.1); Sodium 143 mmol/L (135-145)
--- NOTE | 2020-12-24 14:31 | PC.NURSE ---
this rn responding to pt call liv, pt appears to have incontinent bm all over wheelchair and floor. pt able to help move to other chair to get cleaned, floor mopped and linens changed. pt asking for daughter in waiting room to come back, this rn out for second time to call daughter back and front nurse sts she had left.
[2020-12-24] MEDS: Heparin Sodium,Porcine/1/2NS 25,000 UNIT/250 ML IV.SOLN 8.71 UNIT IVCONT (16:31)
[2020-12-24] MEDS: Heparin Sodium,Porcine 5,000 UNIT/ML VIAL 4000 UNIT IVPUSH (16:33)
--- NOTE | 2020-12-24 17:43 | PM.EVENT ---
Event Note Date of Service: 12/24/20 Event Note: Patient seen and examined independently and I was present during juan portion of E/M service. Agree with JSOE Pat's history, physical, assessment, and plan. 65 yo F with multiple risk factors for CAD who despite mosquito sprayer present, is not the best of hisotrians who presents with complaints of chest pain. Difficult to ascertain exact symptoms, but she does endorse mid sternal chest pain which began night prior to arrival, stabbing in nature, constant, worsened with breathing which is now improved. Reports she has not had this before. ED workup consistent with nonspecific EKG changes, personally appears that maybe the T-waves are slightly more deep. High sensitivity troponin more than doubled and so the case was discussed with the historic sites registrar by the ED provider who recommended IV heparin and admission for NSTEMI. Will check another trop-I in the AM. Also will trend h/h (lower than previous values). Trend BMP, hyperK improved.
--- NOTE | 2020-12-24 18:09 | P.HPHOSP_ITS ---
History of Present Illness Date of Service: 12/24/20 Chief Complaint: chest pain This is a 65-year-old [place]ican-speaking female who presents to the emergency department with complaints of chest pain. She reports central pain, stabbing in nature since last night. The pain is associated with shortness of b reath and has been constant since onset. There is some radiation to her neck and shoulders. She denies any previous history of chest pain. Blood pressure was elevated on arrival at 180/83. Lab work revealed troponin of 67.2 which increased to 168.0 on repeat. EKG showed T-wave inversion in leads 1, 2, AVF, the 4 through V6 which seen somewhat more prominent than previous. The case was discussed with the restaurant lead who recommended starting heparin for anticoagulation. Review of Systems Review of Systems: Yes all other systems are reviewed and are negative Constitutional: Constitutional: Denies chills and Denies fever(s) Cardiovascular: Cardiovascular: Reports chest pain, Reports chest pain at rest, Denies palpitations and Reports dyspnea Respiratory: Respiratory: Denies cough and Reports dyspnea Gastrointestinal: Gastrointestinal: Denies abdominal pain Endocrine: Endocrine: Denies palpitations [facility] Medical History (Updated 12/24/20 @ 18:18 by JOSE Spivey) Anemia Cholecystectomy planned CKD (chronic kidney disease) Congestive heart failure Diabetes mellitus GERD (gastroesophageal reflux disease) Hernia HLD (hyperlipidemia) HTN (hypertension) Nonischemic cardiomyopathy Functional capacity: wheelchair bound Family History Father Lung cancer Mother Diabetes HTN (hypertension) Heart disease Sister Diabetes Heart disease Brother Heart disease Son Diabetes Daughter Diabetes Surgical History H/O: hysterectomy History of esophagogastroduodenoscopy (EGD) Hx of colonoscopy Hx of eye surgery Social History Alcohol intake: never Smoking Status: Never smoker Use of substances other than those prescribed or required for medical reasons: No Advance Directives: No Advance Directives Information Provided: No Meds Allergies Allergy/AdvReac Type Severity Reaction Status Date / Time latex [LATEX] Allergy Intermediate ITCHY Verified 11/05/20 10:37 Active Medications: Current Medications Generic Name Dose Route Start Last Admin Trade Name Otilioq PRN Reason Stop Dose Admin Heparin Sodium (Porcine) 2,900 unit 12/24/20 15:09 Heparin Sodium,Porcine 5,000 Unit/Ml Vial 40 unit/kg (2900 unit) IVPUSH BOLUS PRN 40 unit/kg - Heparin Protocol Heparin Sodium (Porcine) 5,000 unit 12/24/20 15:09 Heparin Sodium,Porcine 5,000 Unit/Ml Vial IVPUSH BOLUS PRN 80 unit/kg - Heparin Protocol Heparin Sodium/Sodium Chloride 25,000 unit in 250 mls @ 0 mls/hr 12/24/20 16:30 12/24/20 16:31 IVCONT 12 units/kg/hr .Q0M MATTY 8.71 mls/hr Administration Protocol Per Protocol Home Medications Medication Instructions Recorded Confirmed Last Taken Type aspirin 81 mg tablet,delayed 81 mg PO BEDTIME 12/08/20 12/24/20 Unknown History release calcium carbonate 500 mg (1,250 1 tab PO BID 12/08/20 12/24/20 Unknown History mg)-vitamin D3 400 unit tablet citalopram 20 mg tablet 20 mg PO DAILY 12/08/20 12/24/20 Unknown History gabapentin 100 mg capsule 100 mg PO BID 12/08/20 12/24/20 Unknown History insulin aspart U-100 100 unit/mL 8 - 24 unit SUBCUT TID 12/08/20 12/24/20 Unknown History (3 mL) subcutaneous pen insulin detemir U-100 100 unit/mL 64 unit SUBCUT DAILY 12/08/20 12/24/20 Unknown History (3 mL) subcutaneous pen magnesium oxide 400 mg (241.3 mg 400 mg PO BID 12/08/20 12/24/20 Unknown History magnesium) tablet rosuvastatin 10 mg tablet 10 mg PO BEDTIME 12/08/20 12/24/20 Unknown History trazodone 50 mg tablet 50 mg PO BEDTIME 12/08/20 12/24/20 Unknown History Physical Exam Vital Signs and Narrative: Vital Signs: Last Vital Signs Temp 98.1 F 12/24/20 15:36 Pulse 78 12/24/20 15:36 Resp 16 12/24/20 15:36 BP 188/83 H 12/24/20 15:36 Pulse Ox 98 12/24/20 15:36 Body Mass Index 33.4 Const: General: no acute distress, alert and awake Nutritional Appearance: well nourished HENMT: Head: Yes normocephalic and Yes atraumatic Eyes: Sclerae: sclerae normal Chest: Chest palpation & inspection: normal inspection of the chest Resp: Effort & Inspection: normal respiratory effort and no respiratory distress Auscultation: clear to auscultation bilaterally Cardio: Rate: regular rate Rhythm: regular rhythm GI: Palpation (GI): Soft to palpation and nontender Neuro: Cranial nerves: Yes CN's II-XII intact bilaterally and Yes Bilaterally intact EOM present Extrem: Other: s/p left BKA, 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 Results Labs CBC and Chem 7: 12/24/20 09:29 12/24/20 13:32 Labs: Laboratory Results - last 24 hr 12/24/20 12/24/20 12/24/20 09:29 09:29 09:29 MCV 82.8 MCH 25.8 L MCHC 31.2 RDW 13.2 Plt Count 197 MPV 10.3 Immature Gran % (Auto) 0.8 H Neut % (Auto) 66.4 Lymph % (Auto) 22.2 Martin % (Auto) 7.6 Eos % (Auto) 2.7 Baso % (Auto) 0.3 Lymph # (Auto) 2.3 Martin # (Auto) 0.8 Eos # (Auto) 0.3 Baso # (Auto) 0.0 Abs Immat Gran (auto) 0.08 H Absolute Neuts (auto) 6.9 Absolute Nucleated RBC 0.000 Nucleated RBC % (auto) 0.0 PT 12.5 INR 1.1 APTT 30.6 Anion Gap 16 Estim Creat Clear Calc 15.8 Estimated GFR 16 Random Glucose 246 H Calcium 8.2 L Total Bilirubin 0.3 AST 17 ALT 10 Alkaline Phosphatase 131 H Troponin I High Sens B-Natriuretic Peptide Total Protein 6.8 Albumin 3.4 L Coronavirus (PCR) Influenza Type A (PCR) Influenza Type B (PCR) RSV RNA Qual (PCR) 12/24/20 12/24/20 12/24/20 09:29 09:33 13:32 MCV MCH MCHC RDW Plt Count MPV Immature Gran % (Auto) Neut % (Auto) Lymph % (Auto) Martin % (Auto) Eos % (Auto) Baso % (Auto) Lymph # (Auto) Martin # (Auto) Eos # (Auto) Baso # (Auto) Abs Immat Gran (auto) Absolute Neuts (auto) Absolute Nucleated RBC Nucleated RBC % (auto) PT INR APTT Anion Gap 17 Estim Creat Clear Calc 15.8 Estimated GFR 16 Random Glucose 243 H Calcium 8.5 Total Bilirubin AST ALT Alkaline Phosphatase Troponin I High Sens 67.2 H D B-Natriuretic Peptide 426 H Total Protein Albumin Coronavirus (PCR) NEGATIVE Influenza Type A (PCR) NEGATIVE Influenza Type B (PCR) NEGATIVE RSV RNA Qual (PCR) NEGATIVE 12/24/20 13:32 MCV MCH MCHC RDW Plt Count MPV Immature Gran % (Auto) Neut % (Auto) Lymph % (Auto) Martin % (Auto) Eos % (Auto) Baso % (Auto) Lymph # (Auto) Martin # (Auto) Eos # (Auto) Baso # (Auto) Abs Immat Gran (auto) Absolute Neuts (auto) Absolute Nucleated RBC Nucleated RBC % (auto) PT INR APTT Anion Gap Estim Creat Clear Calc Estimated GFR Random Glucose Calcium Total Bilirubin AST ALT Alkaline Phosphatase Troponin I High Sens 168.0 H D B-Natriuretic Peptide 424 H Total Protein Albumin Coronavirus (PCR) Influenza Type A (PCR) Influenza Type B (PCR) RSV RNA Qual (PCR) Imaging Radiologist's Impressions: Impressions Chest X-Ray 12/24/20 09:09 IMPRESSION: Question small left pleural effusion with some retrocardiac disease within the left lower lobe. Assessment and Plan (1) Non-ST elevated myocardial infarction: Status: Acute This is a 65-year-old female with a history of diabetes, CKD, heart failure, hypertension, anemia, dyslipidemia who presents to the emergency department with chest pain found to have NSTEMI NSTEMI -AC with heparin -Continue ASA, coreg, statin -echo -cardiology consult -nitrates HTN uncontrolled continue coreg, hydralazine anemia chronic. H/H somewhat lower then baseline denies any bleeding -type and cross, check FOBT -follow CBC DM SSI, POCs, ADA diet -convert Levimir to Lantus CKD Scr at baseline -follow renal function closely Chronic combined systolic and diastolic HF No overt fluid overload -hold lasix gerd/PUD continue prilosec, sucralfate dvt ppx - heaprin This case was discussed with Dr. Feliz
[2020-12-24] MEDS: Nitroglycerin 2 % Oint 1 GM Packet 1 INCH TRANSDERMA ×2 (18:27→21:11)
[2020-12-24] MEDS: Aspirin 81 MG TAB.CHEW PO (18:27)
[2020-12-24 18:44] LABS: Hematocrit 28.5 % (37-47); Hemoglobin 9.2 g/dl (12.0-16.0); Mean Corpuscular HGB Conc 32.3 g/dl (31.0-35.0); Mean Corpuscular Hemoglobin 26.5 pg (27.0-33.0); Mean Corpuscular Volume 82.1 fL (80-98); Mean Platelet Volume 10.4 fL (9.4-12.3); Platelet Count 208 X10*3/uL (160-400); Red Blood Count 3.47 X10*6/uL (4.20-5.50); Red Cell Distribution Width 13.2 % (11.0-16.0); White Blood Count 14.8 X10*3/uL (4.8-10.8)
[2020-12-24 18:50] LABS: INTERNATIONAL NORM RATIO 1.1 (0.9-1.1); Prothrombin Time 13.5 SEC (10.8-13.0)
[2020-12-24 18:52] LABS: PTT Heparin Drip 44.6 SEC (53-77.9)
[2020-12-24] MEDS: carvediloL 3.125 MG TABLET PO (21:09)
[2020-12-24] MEDS: Atorvastatin Calcium 40 MG TABLET PO (21:10)
[2020-12-24] MEDS: hydrALAZINE HCl 10 MG TABLET PO (21:10)
[2020-12-24] MEDS: Gabapentin 100 MG CAPSULE PO (21:10)
[2020-12-24] MEDS: Magnesium Oxide 400 MG TABLET PO (21:11)
[2020-12-24] MEDS: Aspirin Enteric Coated 81 MG TABLET.DR PO (21:11)
[2020-12-24] MEDS: traZODone HCL 50 MG TABLET PO (21:11)
[2020-12-24] MEDS: Insulin Glargine,Hum.rec.anlog 100 UNIT/ML 10 ML VIAL 40 UNIT SUBCUT (21:12)
[2020-12-24 21:36] LABS: Glucose, Whole Blood 178 mg/dL (60-115)
[2020-12-24] MEDS: Insulin Lispro 100 UNIT/ML 3 ML VIAL SUBCUT (22:12)
[2020-12-24] MEDS: Metoclopramide HCl 5 MG TABLET PO (22:12)
[2020-12-24 22:38] LABS: Hematocrit 26.8 % (37-47); Hemoglobin 8.6 g/dl (12.0-16.0)
[2020-12-24 23:02] LABS: PTT Heparin Drip 57.5 SEC (53-77.9)
[2020-12-25] VITALS (9 sets, daily range): BP systolic 130–170; BP diastolic 58–74; PULSE 61–82; RESP 18–20; TEMP 36.1–36.8; O2SAT 92–95
[2020-12-25 05:04] LABS: MANUAL DIFF FLAG NO
[2020-12-25 05:09] LABS: Basophils Percent Auto 0.2 % (0-2); Eosinophils Absolute Auto 0.3 X10*3/uL (0.0-0.4); Eosinophils Percent Auto 2.2 % (0-4); Hematocrit 27.2 % (37-47); Hemoglobin 8.6 g/dl (12.0-16.0); Imm Gran Abs Auto 0.09 X10*3/uL (0.00-0.03); Imm Gran Pct Auto 0.7 % (0.0-0.4); Lymphocytes Absolute Auto 2.7 X10*3/uL (1.2-4.9); Lymphocytes Percent Auto 20.7 % (20-40); Mean Corpuscular HGB Conc 31.6 g/dl (31.0-35.0); Mean Corpuscular Hemoglobin 26.4 pg (27.0-33.0); Mean Corpuscular Volume 83.4 fL (80-98); Mean Platelet Volume 11.2 fL (9.4-12.3); Monocytes Absolute Auto 0.8 X10*3/uL (0.1-1.2); Monocytes Percent Auto 6.1 % (2-11); Neutrophils Percent Auto 70.1 % (45-73); Platelet Count 217 X10*3/uL (160-400); Red Blood Count 3.26 X10*6/uL (4.20-5.50); Red Cell Distribution Width 13.2 % (11.0-16.0); White Blood Count 12.9 X10*3/uL (4.8-10.8)
[2020-12-25 05:17] LABS: INTERNATIONAL NORM RATIO 1.2 (0.9-1.1)
[2020-12-25 05:20] LABS: PTT Heparin Drip 68.8 SEC (53-77.9)
[2020-12-25 05:27] LABS: Anion Gap 17 (12-20); Blood Urea Nitrogen 47 mg/dL (9-16); Calcium 8.1 mg/dL (8.4-10.2); Carbon Dioxide 19 mmol/L (22-29); Chloride 109 mmol/L (96-108); Creatinine Clr Calc Pharmacy 19.1; Estimated Glomerular Filt Rate 18; Glucose Random 175 mg/dL (60-115); Potassium 4.4 mmol/L (3.3-5.1); Sodium 141 mmol/L (135-145)
[2020-12-25 05:37] LABS: Troponin-I High Sensitivity 135.4 ng/L (<3.5-17.0)
[2020-12-25] MEDS: Omeprazole 40 MG CAPSULE.DR PO ×2 (05:46→17:38)
[2020-12-25 07:21] LABS: Glucose, Whole Blood 153 mg/dL (60-115)
[2020-12-25] MEDS: Insulin Lispro 100 UNIT/ML 3 ML VIAL SUBCUT ×4 (08:02→21:50)
[2020-12-25] MEDS: Nitroglycerin 2 % Oint 1 GM Packet 1 INCH TRANSDERMA ×3 (08:03→21:50)
[2020-12-25] MEDS: carvediloL 3.125 MG TABLET PO ×2 (08:04→08:51)
[2020-12-25] MEDS: hydrALAZINE HCl 10 MG TABLET PO ×2 (08:04→21:49)
[2020-12-25] MEDS: 0.9 % Sodium Chloride Flush 3 ML SYRINGE IVFLUSH ×2 (08:04→17:38)
[2020-12-25] MEDS: Sucralfate 1 GM TABLET 2 GM PO (08:04)
[2020-12-25] MEDS: Gabapentin 100 MG CAPSULE PO ×2 (08:04→21:49)
[2020-12-25] MEDS: Escitalopram Oxalate 10 MG TABLET PO (08:04)
[2020-12-25] MEDS: Calcium + Vitamin D 250 MG TABLET PO ×2 (08:05→21:49)
[2020-12-25] MEDS: Magnesium Oxide 400 MG TABLET PO ×2 (08:05→21:49)
[2020-12-25] MEDS: Metoclopramide HCl 5 MG TABLET PO ×4 (08:08→21:49)
--- NOTE | 2020-12-25 09:17 | HO.PM.IMPN ---
Subjective Subjective Date of Service: 12/25/20 <JOSE Spivey - Last Filed: 12/25/20 10:11> 12/25/20 <Constantino Feliz MD - Last Filed: 12/25/20 13:14> Interval History: f/u NSTEMI No overnight events denies CP this am ROS: Cardiovascular: no chest pain Respiratory: no SOB, cough Constitutional: no fever, chills <JOSE Spivey - Last Filed: 12/25/20 10:11> Physical Exam Vital Signs: Vital Signs: Last Vital Signs Temp 98 F 12/25/20 08:00 Pulse 77 12/25/20 06:53 Resp 20 12/25/20 06:53 BP 170/74 H 12/25/20 06:53 Pulse Ox 95 12/25/20 06:53 Body Mass Index 38.4 <JOSE Spivey - Last Filed: 12/25/20 10:11> Const: General: no acute distress, alert and awake <JOSE Spivey - Last Filed: 12/25/20 10:11> Nutritional Appearance: well nourished <JOSE Spivey - Last Filed: 12/25/20 10:11> HENMT: Head: Yes normocephalic and Yes atraumatic <JOSE Spivey - Last Filed: 12/25/20 10:11> Eyes: Sclerae: sclerae normal <JOSE Spivey - Last Filed: 12/25/20 10:11> Chest: Chest palpation & inspection: normal inspection of the chest <JOSE Spivey - Last Filed: 12/25/20 10:11> Resp: Effort & Inspection: normal respiratory effort and no respiratory distress <JOSE Spivey - Last Filed: 12/25/20 10:11> Auscultation: clear to auscultation bilaterally <JOSE Spivey - Last Filed: 12/25/20 10:11> Cardio: Rate: regular rate <JOSE Spviey - Last Filed: 12/25/20 10:11> Rhythm: regular rhythm <JOSE Spivey - Last Filed: 12/25/20 10:11> GI: Palpation (GI): Soft to palpation and nontender <JOSE Spivey Last Filed: 12/25/20 10:11> Neuro: Cranial nerves: Yes CN's II-XII intact bilaterally and Yes Bilaterally intact EOM present <JOSE Spivey Last Filed: 12/25/20 10:11> Extrem: Other: s/p left BKA, 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 <JOSE Spivey Last Filed: 12/25/20 10:11> Objective Data Current Medications Generic Name Dose Route Start Last Admin Trade Name Freq PRN Reason Stop Dose Admin Acetaminophen 650 mg 12/24/20 20:34 Acetaminophen 325 Mg Tablet PO Q6H PRN Pain, Mild (Pain Scale 1-3) Aspirin 81 mg 12/24/20 21:00 12/24/20 21:11 Aspirin Enteric Coated 81 Mg Tablet.Dr PO 81 mg BEDTIME MATTY Administration Atorvastatin Calcium 40 mg 12/24/20 21:00 12/24/20 21:10 Atorvastatin Calcium 40 Mg Tablet PO 40 mg BEDTIME MATTY Administration Calcium Carbonate/Cholecalciferol 250 mg 12/25/20 09:00 12/25/20 08:05 Calcium + Vitamin D 250 Mg Tablet PO 250 mg BID MATTY Administration Carvedilol 6.25 mg 12/25/20 21:00 Carvedilol 3.125 Mg Tablet PO BID MATTY Protocol Escitalopram Oxalate 10 mg 12/25/20 09:00 12/25/20 08:04 Escitalopram Oxalate 10 Mg Tablet PO 10 mg DAILY MATTY Administration Gabapentin 100 mg 12/24/20 21:00 12/25/20 08:04 Gabapentin 100 Mg Capsule PO 100 mg BID MATTY Administration Heparin Sodium (Porcine) 2,900 unit 12/24/20 15:09 Heparin Sodium,Porcine 5,000 Unit/Ml Vial 40 unit/kg (2900 unit) IVPUSH BOLUS PRN 40 unit/kg - Heparin Protocol Heparin Sodium (Porcine) 5,000 unit 12/24/20 15:09 Heparin Sodium,Porcine 5,000 Unit/Ml Vial IVPUSH BOLUS PRN 80 unit/kg - Heparin Protocol Hydralazine HCl 10 mg 12/24/20 21:00 12/25/20 08:04 Hydralazine Hcl 10 Mg Tablet PO 10 mg BID MATTY Administration Protocol Heparin Sodium/Sodium Chloride 25,000 unit in 250 mls @ 0 mls/hr 12/24/20 16:30 12/25/20 04:30 IVCONT 12 units/kg/hr .Q0M MATTY 8.71 mls/hr Titration Protocol Per Protocol Insulin Glargine 40 unit 12/24/20 21:00 12/24/20 21:12 Insulin Glargine,Hum.Rec.Anlog 100 Unit/Ml 10 Ml Vial SUBCUT 40 unit BEDTIME MATTY Administration Insulin Human Lispro 0 unit 12/24/20 21:00 12/25/20 08:02 Insulin Lispro 100 Unit/Ml 3 Ml Vial SUBCUT 2 unit QIDACHS MATTY Administration Protocol Magnesium Oxide 400 mg 12/24/20 21:00 12/25/20 08:05 Magnesium Oxide 400 Mg Tablet PO 400 mg BID MATTY Administration Metoclopramide HCl 5 mg 12/24/20 21:00 12/25/20 08:08 Metoclopramide Hcl 5 Mg Tablet PO 5 mg QIDACHS MATTY Administration Nitroglycerin 1 inch 12/24/20 20:00 12/25/20 08:03 Nitroglycerin 2 % Oint 1 Gm Packet TRANSDERMA 1 inch RQ6H WHILE AWAKE MATTY Administration Omeprazole 40 mg 12/25/20 06:30 12/25/20 05:46 Omeprazole 40 Mg Capsule.Dr PO 40 mg BID@0630,1630 MATYT Administration Sodium Chloride 3 ml 12/25/20 00:00 12/25/20 08:04 0.9 % Sodium Chloride Flush 3 Ml Syringe IVFLUSH 3 ml QSHIFT MATTY Administration Sucralfate 2 gm 12/25/20 09:00 12/25/20 08:04 Sucralfate 1 Gm Tablet PO 2 gm DAILY MATTY Administration Trazodone HCl 50 mg 12/24/20 21:00 12/24/20 21:11 Trazodone Hcl 50 Mg Tablet PO 50 mg BEDTIME MATTY Administration <JOSE Spivey - Last Filed: 12/25/20 10:11> Labs CBC & Chem 7: : 12/25/20 04:33 12/25/20 04:34 <JOSE Spivey - Last Filed: 12/25/20 10:11> Assessment and Plan (1) Non-ST elevated myocardial infarction: Status: Acute <JOSE Spivey - Last Filed: 12/25/20 10:11> Assessment and Plan: This is a 65-year-old female with a history of diabetes, CKD, heart failure, hypertension, anemia, dyslipidemia who presents to the emergency department with chest pain found to have NSTEMI NSTEMI trop peaked at 135. no more chest pain -AC with heparin started 12/24 -Continue ASA, coreg, statin, nitrates -echo pending -cardiology consult pending HTN uncontrolled -increased dose of coreg, continue hydralazine -follow-up blood pressure Normocytic anemia chronic. H/H somewhat lower then baseline but stable overnight denies any bleeding -type and cross done, stool occult pending -follow CBC DM SSI, POCs, ADA diet -convert Levimir to Lantus CKD4 Scr at baseline -follow renal function closely -avoid nephrotoxins if possible Chronic combined systolic and diastolic HF No overt fluid overload -hold lasix -monitor fluid status closely gerd/PUD continue prilosec, sucralfate dvt ppx - heaprin This case was discussed with Dr. Feliz <JOSE Spivey - Last Filed: 12/25/20 10:11> Patient seen and examined independently and I was present during juan portion of E/M service. Agree with JOSE Pat's history, physical, assessment, and plan. NSTEMI - heparin gtt x 48 hours, inpatient stress test. Cardiology on bard. CP resolved today. <Constantino Feliz MD - Last Filed: 12/25/20 13:14>
--- NOTE | 2020-12-25 09:25 | P.CDIC_ITS ---
CD[facility] Concurrent Query Service Date: 12/25/20 Documentation Clarification: Please clarify if you are treating a proba ble/suspected/likely or confirmed: LABS: Hyperkalemia Please specify if known Hyperkalemia present on admission, now resolved Provider Response: Other Other Diagnosis: Hyperkalemia POA PLEASE DO NOT DELETE/MODIFY EXISTING CONTENT Additional information is needed in order to code to the highest accuracy and appropriate Severity of Illness (SOI). Please clarify the information noted below in your progress notes and discharge summary. Risk Factors/Clinical Indicators/Treatments LAB FINDINGS: potassium 6.3 5.3 IV fluids CDS: Kylie Alonso CCS, [facility] Contact Number: [phone] Please Review the information above and exercise your independent professional judgment in responding to the query. If you concur, pleas document in the PROGRESS NOTES and DISCHARGE SUMMARY. If you do not agree with the query, please document in the query above. THIS QUERY IS PART OF THE PERMANENT MEDICAL RECORD
[2020-12-25 11:08] LABS: Glucose, Whole Blood 187 mg/dL (60-115)
--- NOTE | 2020-12-25 11:08 | P.CONCA_ITS ---
History of Present Illness History of Present Illness Date of Service: 12/25/20 Consult reason: myocardial infarction Chief complaint: NSTEMI Narrative: This is a cardiology consultation regarding elevated troponins. Discussed with patient using a [place]ut mexican food maker hand. Patient states that she does get chest pain every now and then but as today she developed a left-sided chest discomfort and she also felt short of breath and that led to the ER visit. Troponins were checked in the ER and they were elevated leading to the hospitalization. She carries a diagnosis of nonischemic cardiomyopathy and she sees Dr. Bal in our office. Last appointment was on the 08 of December this month. I am not entirely clear as to what kind of ischemic workup she has had in the past. Otherwise, she states that she does get chest pains every now and then and etiology seems uncertain. Minimal mobility and she has a left below-knee amputation as well. Review of Systems Review of Systems: Yes all other systems are reviewed and are negative Cardiovascular: Cardiovascular: Reports as per HPI, Reports no additional cardiovascular complaints, Denies acrocyanosis, Denies cool extremities, Denies painful fingertips, Reports chest pain, Denies chest pain at rest, Denies diaphoresis, Denies syncope, Denies irregular heart rhythm, Denies claudication, Denies leg edema, Denies lightheadedness, Denies palpitations and Reports dyspnea Respiratory: Respiratory: Reports dyspnea Neurologic: Denies syncope Endocrine: Endocrine: Denies palpitations [facility] Past Medical History Medical History (Updated 12/25/20 @ 11:15 by Andrea Vides MD) Anemia Cholecystectomy planned CKD (chronic kidney disease) Congestive heart failure Diabetes mellitus Essential hypertension GERD (gastroesophageal reflux disease) Hernia HLD (hyperlipidemia) HTN (hypertension) Nonischemic cardiomyopathy Other and unspecified hyperlipidemia Type 2 diabetes mellitus with unspecified complications Functional capacity: wheelchair bound Family History Family History Father Lung cancer Mother Diabetes HTN (hypertension) Heart disease Sister Diabetes Heart disease Brother Heart disease Son Diabetes Daughter Diabetes Surgical History Surgical History H/O: hysterectomy History of esophagogastroduodenoscopy (EGD) Hx of colonoscopy Hx of eye surgery Social History Social History Household Members: Family Housing: Apartment Do you presently have visiting nurse or other home services: Yes Alcohol intake: never Smoking Status: Never smoker Use of substances other than those prescribed or required for medical reasons: No Currently Displaying Signs/Symptoms of Drug Intoxication Withdrawal: No Have you been hit, kicked, punched, or otherwise hurt by someone within the past year? If so, by whom?: No Do you feel safe in your current relationship?: Yes Is there a partner from a previous relationship who is making you feel unsafe now?: No Are you made to feel afraid or neglected: No Advance Directives: No Advance Directives Information Provided: No Do you have thoughts of harming others: None Do you have a plan to hurt others: No Plan Recently lost weight without trying: No Meds Allergies Allergy/AdvReac Type Severity Reaction Status Date / Time latex [LATEX] Allergy Intermediate ITCHY Verified 11/05/20 10:37 Active Medications: Current Medications Generic Name Dose Route Start Last Admin Trade Name Freq PRN Reason Stop Dose Admin Acetaminophen 650 mg 12/24/20 20:34 Acetaminophen 325 Mg Tablet PO Q6H PRN Pain, Mild (Pain Scale 1-3) Aspirin 81 mg 12/24/20 21:00 12/24/20 21:11 Aspirin Enteric Coated 81 Mg Tablet. PO 81 mg BEDTIME MATTY Administration Atorvastatin Calcium 40 mg 12/24/20 21:00 12/24/20 21:10 Atorvastatin Calcium 40 Mg Tablet PO 40 mg BEDTIME MATTY Administration Calcium Carbonate/Cholecalciferol 250 mg 12/25/20 09:00 12/25/20 08:05 Calcium + Vitamin D 250 Mg Tablet PO 250 mg BID MATTY Administration Carvedilol 6.25 mg 12/25/20 21:00 Carvedilol 3.125 Mg Tablet PO BID [facility] Protocol Escitalopram Oxalate 10 mg 12/25/20 09:00 12/25/20 08:04 Escitalopram Oxalate 10 Mg Tablet PO 10 mg DAILY MATTY Administration Gabapentin 100 mg 12/24/20 21:00 12/25/20 08:04 Gabapentin 100 Mg Capsule PO 100 mg BID MATTY Administration Heparin Sodium (Porcine) 2,900 unit 12/24/20 15:09 Heparin Sodium,Porcine 5,000 Unit/Ml Vial 40 unit/kg (2900 unit) IVPUSH BOLUS PRN 40 unit/kg - Heparin Protocol Heparin Sodium (Porcine) 5,000 unit 12/24/20 15:09 Heparin Sodium,Porcine 5,000 Unit/Ml Vial IVPUSH BOLUS PRN 80 unit/kg - Heparin Protocol Hydralazine HCl 10 mg 12/24/20 21:00 12/25/20 08:04 Hydralazine Hcl 10 Mg Tablet PO 10 mg BID MATTY Administration Protocol Heparin Sodium/Sodium Chloride 25,000 unit in 250 mls @ 0 mls/hr 12/24/20 16:30 12/25/20 04:30 IVCONT 12 units/kg/hr .Q0M MATTY 8.71 mls/hr Titration Protocol Per Protocol Insulin Glargine 40 unit 12/24/20 21:00 12/24/20 21:12 Insulin Glargine,Hum.Rec.Anlog 100 Unit/Ml 10 Ml Vial SUBCUT 40 unit BEDTIME MATTY Administration Insulin Human Lispro 0 unit 12/24/20 21:00 12/25/20 08:02 Insulin Lispro 100 Unit/Ml 3 Ml Vial SUBCUT 2 unit QIDACHS MATTY Administration Protocol Magnesium Oxide 400 mg 12/24/20 21:00 12/25/20 08:05 Magnesium Oxide 400 Mg Tablet PO 400 mg BID MATTY Administration Metoclopramide HCl 5 mg 12/24/20 21:00 12/25/20 08:08 Metoclopramide Hcl 5 Mg Tablet PO 5 mg QIDACHS MATTY Administration Nitroglycerin 1 inch 12/24/20 20:00 12/25/20 08:03 Nitroglycerin 2 % Oint 1 Gm Packet TRANSDERMA 1 inch RQ6H WHILE AWAKE MATTY Administration Omeprazole 40 mg 12/25/20 06:30 12/25/20 05:46 Omeprazole 40 Mg Capsule.Dr PO 40 mg BID@0630,1630 MATTY Administration Sodium Chloride 3 ml 12/25/20 00:00 12/25/20 08:04 0.9 % Sodium Chloride Flush 3 Ml Syringe IVFLUSH 3 ml QSHIFT AMTTY Administration Sucralfate 2 gm 12/25/20 09:00 12/25/20 08:04 Sucralfate 1 Gm Tablet PO 2 gm DAILY MATTY Administration Trazodone HCl 50 mg 12/24/20 21:00 12/24/20 21:11 Trazodone Hcl 50 Mg Tablet PO 50 mg BEDTIME MATTY Administration Home Medications Medication Instructions Recorded Confirmed Last Taken Type aspirin 81 mg tablet,delayed 81 mg PO BEDTIME 12/08/20 12/24/20 Unknown History release calcium carbonate 500 mg (1,250 1 tab PO BID 12/08/20 12/24/20 Unknown History mg)-vitamin D3 400 unit tablet citalopram 20 mg tablet 20 mg PO DAILY 12/08/20 12/24/20 Unknown History gabapentin 100 mg capsule 100 mg PO BID 12/08/20 12/24/20 Unknown History insulin aspart U-100 100 unit/mL 8 - 24 unit SUBCUT TID 12/08/20 12/24/20 Unknown History (3 mL) subcutaneous pen insulin detemir U-100 100 unit/mL 64 unit SUBCUT DAILY 12/08/20 12/24/20 Unknown History (3 mL) subcutaneous pen magnesium oxide 400 mg (241.3 mg 400 mg PO BID 12/08/20 12/24/20 Unknown History magnesium) tablet rosuvastatin 10 mg tablet 10 mg PO BEDTIME 12/08/20 12/24/20 Unknown History trazodone 50 mg tablet 50 mg PO BEDTIME 12/08/20 12/24/20 Unknown History Physical Exam Vital Signs: Vital Signs: Last Vital Signs Temp 98 F 12/25/20 10:55 Pulse 76 12/25/20 10:55 Resp 20 12/25/20 10:55 BP 150/67 H 12/25/20 10:55 Pulse Ox 94 12/25/20 10:55 Body Mass Index 38.4 Const: General: cooperative, comfortable and no acute distress Orientation/consciousness: patient oriented x3 HENMT: Other: Unremarkable Neck: Neck: Yes normal visual inspection Chest: Chest palpation & inspection: normal inspection of the chest Resp: Auscultation: clear to auscultation bilaterally, no crackles and no wheezes Cardio: Jugular venous distension: no JVD Palpation: normal PMI Heart sounds: S1 normal heart sound present, S2 normal heart sound present, no gallops , no murmurs and no rubs GI: Palpation (GI): Soft to palpation Back/Spine/Pelvis: Other: unremarkable Skin: General skin exam: no rashes or lesions noted Neuro: General: patient oriented x3 Extrem: Other: Left below-knee amputation Psych: Mental Status: mental status grossly normal Results Labs and Meds Result diagrams: 12/25/20 04:33 12/25/20 04:34 Lab results: Laboratory Results - last 24 hr 12/24/20 12/24/20 12/24/20 09:33 13:32 13:32 WBC RBC Hgb Hct MCV MCH MCHC RDW Plt Count MPV Immature Gran % (Auto) Neut % (Auto) Lymph % (Auto) [place] % (Auto) Eos % (Auto) Baso % (Auto) Lymph # (Auto) [place] # (Auto) Eos # (Auto) Baso # (Auto) Abs Immat Gran (auto) Absolute Neuts (auto) Absolute Nucleated RBC Nucleated RBC % (auto) PT INR PTT (Heparin Protocol) Sodium 143 Potassium 5.3 H Chloride 112 H Carbon Dioxide 19 L Anion Gap 17 BUN 50 H Creatinine 2.91 H Estim Creat Clear Calc 15.8 Estimated GFR 16 POC Glucose Random Glucose 243 H Calcium 8.5 Troponin I High Sens 168.0 H D B-Natriuretic Peptide 424 H Coronavirus (PCR) NEGATIVE Influenza Type A (PCR) NEGATIVE Influenza Type B (PCR) NEGATIVE RSV RNA Qual (PCR) NEGATIVE Blood Type Antibody Screen 12/24/20 12/24/20 12/24/20 18:36 18:36 18:36 WBC 14.8 H RBC 3.47 L Hgb 9.2 L Hct 28.5 L MCV 82.1 MCH 26.5 L MCHC 32.3 RDW 13.2 Plt Count 208 MPV 10.4 Immature Gran % (Auto) Neut % (Auto) Lymph % (Auto) [place] % (Auto) Eos % (Auto) Baso % (Auto) Lymph # (Auto) [place] # (Auto) Eos # (Auto) Baso # (Auto) Abs Immat Gran (auto) Absolute Neuts (auto) Absolute Nucleated RBC 0.000 Nucleated RBC % (auto) 0.0 PT 13.5 H INR 1.1 PTT (Heparin Protocol) 44.6 L Sodium Potassium Chloride Carbon Dioxide Anion Gap BUN Creatinine Estim Creat Clear Calc Estimated GFR POC Glucose Random Glucose Calcium Troponin I High Sens B-Natriuretic Peptide Coronavirus (PCR) Influenza Type A (PCR) Influenza Type B (PCR) RSV RNA Qual (PCR) Blood Type B Positive Antibody Screen NEGATIVE 12/24/20 12/24/20 12/24/20 21:32 22:31 22:31 WBC RBC Hgb 8.6 L Hct 26.8 L MCV MCH MCHC RDW Plt Count MPV Immature Gran % (Auto) Neut % (Auto) Lymph % (Auto) [place] % (Auto) Eos % (Auto) Baso % (Auto) Lymph # (Auto) [place] # (Auto) Eos # (Auto) Baso # (Auto) Abs Immat Gran (auto) Absolute Neuts (auto) Absolute Nucleated RBC Nucleated RBC % (auto) PT INR PTT (Heparin Protocol) 57.5 D Sodium Potassium Chloride Carbon Dioxide Anion Gap BUN Creatinine Estim Creat Clear Calc Estimated GFR POC Glucose 178 H Random Glucose Calcium Troponin I High Sens B-Natriuretic Peptide Coronavirus (PCR) Influenza Type A (PCR) Influenza Type B (PCR) RSV RNA Qual (PCR) Blood Type Antibody Screen 12/25/20 12/25/20 12/25/20 04:33 04:33 04:34 WBC 12.9 H RBC 3.26 L Hgb 8.6 L Hct 27.2 L MCV 83.4 MCH 26.4 L MCHC 31.6 RDW 13.2 Plt Count 217 MPV 11.2 Immature Gran % (Auto) 0.7 H Neut % (Auto) 70.1 Lymph % (Auto) 20.7 [place] % (Auto) 6.1 Eos % (Auto) 2.2 Baso % (Auto) 0.2 Lymph # (Auto) 2.7 [place] # (Auto) 0.8 Eos # (Auto) 0.3 Baso # (Auto) 0.0 Abs Immat Gran (auto) 0.09 H Absolute Neuts (auto) 9.0 H Absolute Nucleated RBC 0.000 Nucleated RBC % (auto) 0.0 PT 14.0 H INR 1.2 H PTT (Heparin Protocol) Sodium 141 Potassium 4.4 Chloride 109 H Carbon Dioxide 19 L Anion Gap 17 BUN 47 H Creatinine 2.60 H Estim Creat Clear Calc 19.1 Estimated GFR 18 POC Glucose Random Glucose 175 H Calcium 8.1 L Troponin I High Sens B-Natriuretic Peptide Coronavirus (PCR) Influenza Type A (PCR) Influenza Type B (PCR) RSV RNA Qual (PCR) Blood Type Antibody Screen 12/25/20 12/25/20 12/25/20 04:34 04:34 06:54 WBC RBC Hgb Hct MCV MCH MCHC RDW Plt Count MPV Immature Gran % (Auto) Neut % (Auto) Lymph % (Auto) [place] % (Auto) Eos % (Auto) Baso % (Auto) Lymph # (Auto) [place] # (Auto) Eos # (Auto) Baso # (Auto) Abs Immat Gran (auto) Absolute Neuts (auto) Absolute Nucleated RBC Nucleated RBC % (auto) PT INR PTT (Heparin Protocol) 68.8 Sodium Potassium Chloride Carbon Dioxide Anion Gap BUN Creatinine Estim Creat Clear Calc Estimated GFR POC Glucose 153 H Random Glucose Calcium Troponin I High Sens 135.4 H B-Natriuretic Peptide Coronavirus (PCR) Influenza Type A (PCR) Influenza Type B (PCR) RSV RNA Qual (PCR) Blood Type Antibody Screen 12/25/20 10:55 WBC RBC Hgb Hct MCV MCH MCHC RDW Plt Count MPV Immature Gran % (Auto) Neut % (Auto) Lymph % (Auto) [place] % (Auto) Eos % (Auto) Baso % (Auto) Lymph # (Auto) [place] # (Auto) Eos # (Auto) Baso # (Auto) Abs Immat Gran (auto) Absolute Neuts (auto) Absolute Nucleated RBC Nucleated RBC % (auto) PT INR PTT (Heparin Protocol) Sodium Potassium Chloride Carbon Dioxide Anion Gap BUN Creatinine Estim Creat Clear Calc Estimated GFR POC Glucose 187 H Random Glucose Calcium Troponin I High Sens B-Natriuretic Peptide Coronavirus (PCR) Influenza Type A (PCR) Influenza Type B (PCR) RSV RNA Qual (PCR) Blood Type Antibody Screen ECG Attestation: I personally reviewed and interpreted this ECG as follows: Interpretation: EKG shows sinus rhythm with inferolateral ST depression and T inversion. This could be from LVH or ischemia. This has been seen before. Assessment and Plan (1) Non-ST elevated myocardial infarction: Status: Acute (2) Nonischemic cardiomyopathy: Status: Acute (3) Type 2 diabetes mellitus with unspecified complications: Status: Acute (4) Essential hypertension: Status: Acute (5) Other and unspecified hyperlipidemia: Status: Acute She clearly has elevated troponins suggestive of non ST elevation myocardial infarction. Numerous risk factors for vascular disease. She can stay on IV heparin for 48 hours. We can do echocardiogram today. Resting part of pharmacological stress today and stress part can be done Monday. We will follow with you. Continue her medications for vascular risk factors.
--- NOTE | 2020-12-25 11:19 | CA_ITS ---
Acquisition Time: 2020-12-28 11:49:18 Total Exercise Time: 00:02:00 Test Indications: Screening for CAD Medications: SEE EMAR Protocol: LEXISCAN Max HR: 081 BPM 52% of Pred: 153 BPM Max BP: 146/066 mmHG Max Work Load: 1.0 METS Pharmacological stress test using Lexiscan while lying down. Tolerated well, deies any anginal sx. EKG with incompleter LBBB non-diagnostic for ischemia. Nuclear images to follow. Normotensive response to test. Test reviewed with Dr. Bal. Referred By: Andrea Vides Overread By: Kary Nolan NP
--- NOTE | 2020-12-25 13:40 | MHC.CM.PN ---
CM met with Patient at bedside and addressed the IMM with her with [facility] (CM provided original IMM To Patient and a copy has been placed on the chart) Patient uses a w/c to assist with mobility and she has both LAP CUTTER & VNA services and her goal is to return home with resumption of these services. Patient lives with her Daughter/HCP and adult Grandson and Dr. Alexys Romero is the PCP.
--- NOTE | 2020-12-25 14:04 | MHC.CM.PN ---
CM awaits a return call from PCP-Dr. Mendez office; CM called to inquire what agencies Patient receives her VNA & MACHINE ST[facility] services from.
--- NOTE | 2020-12-25 14:57 | MHC.CM.PN ---
Per Melody from [facility], Patient receives VNA through [facility] in [place]; referral has been made.
--- NOTE | 2020-12-25 15:28 | CA_ITS ---
Transthoracic Echocardiogram Patient (Last, First, Middle): Debbie Guerra, Gender: Female Date of : 1955 Age: 65 Procedure Date: 12/25/2020 Procedure Type: Transthoracic Echocardiogram [place] [facility] [place]: 147.32 cm Weight: 83.01 kg BSA: 1.75 m2 Heart Rate: bpm BP: 140 / 65 mmHg Shop Assistant: BRIGITTE Tom MD: Cory Francis NP Symptoms: sob Study Quality: Fair ECG Rhythm: Sinus Conclusions: - The left ventricular systolic function is moderately decreased. The visually estimated ejection fraction is between 35-40%. - There is mild aortic valve stenosis. - There is moderate mitral annular calcification. - There is moderate mitral annular calcification. There is mild mitral valve regurgitation. Findings Left Ventricle Normal left ventricular cavity size. There is mildly increased left ventricular wall thickness. The left ventricular systolic function is moderately decreased. The visually estimated ejection fraction is between 35 40%. The calculated ejection fraction is 37% by biplane method. There is moderate global hypokinesis. Right Ventricle Normal right ventricular cavity size. There is low normal right ventricular systolic function. Atria The left atrium is mildly dilated. The right atrium is normal in size. Aortic Valve There is a normal trileaflet aortic valve. There is mild calcification of the aortic valve. There is mild aortic valve stenosis. The peak aortic velocity is 2.03 m/s with a calculated peak gradient of 16 mmHg. The mean gradient is 9 mmHg. The aortic valve area is 1.29 cm2. There is no aortic valve regurgitation. Mitral Valve There is mild anterior and posterior mitral leaflet thickening. There is moderate mitral annular calcification. There is mild mitral valve regurgitation. There is no mitral valve stenosis. Pulmonic Valve The pulmonic valve was not well visualized. Tricuspid Valve Normal tricuspid valve structure. There is trace tricuspid valve regurgitation. The pulmonary artery systolic pressure is normal. Great Vessels The aortic annulus, sinuses of valsalva, and asc aorta are normal in size. Venous The inferior vena cava is normal in size and collapses greater than 50% with inspiration. Pericardium/Pleural There is no evidence of pericardial effusion. Prior Study Comparison Changes noted compared to prior study dated: 11/12/2019. LVEF lower than prior study. Measurements 2D Linear Measurements IVSd: 1.06 0.6-0.9/0.6-1.0 cm LVIDd: 4.78 3.9-5.3/4.2-5.9 cm LVIDd Index: 2.73 2.4-3.2/2.2-3.1 cm/m2 LVIDs: 3.70 2.0-3.6 cm LVPWd: 1.14 0.7-1.1 cm Ao Root: 2.80 2.1-3.5 cm LA Diam: 3.80 2.7-3.8/3.0-4.0 cm LAIDs Index: 2.17 1.5-2.3 cm/m2 LV Mass: 240.09 67-162/88-224 g LV Mass Index: 137.19 43-95/49-115 g/m2 LVOT Diam: 1.90 3.0+(-)1.3 cm 2D Systolic Function EF 4C: 34.30 >55% EF 2C: 38.40 >55% EF BiP: 36.80 >55% Mitral Valve MV Pk E: 1.57 MV PK A: 1.38 MV Decel Time: 165.00 E/A: 1.10 PHT: 48.00 MVA PHT: 4.58 Decel [place]: 9.56 Aortic Valve AoV Pk Rudy: 2.03 AoV Mn Rudy: 1.37 AoV VTI: 0.47 AoV Pk Grad: 16.00 Aov Mn Grad: 9.00 MAGNOLIA Cont.VTI: 1.29 LVOT LVOT Pk Rudy: 0.85 LVOT Mn Rudy: 0.59 LVOT VTI: 0.21 LVOT Pk Grad: 3.00 LVOT Mn Grad: 2.00 LVOT Diam: 1.90 LVOT Area: 2.84 Diastolic Function MV Pk E: 1.57 MV Pk A: 1.38 E/A: 1.10 Tricuspid Valve TR Pk Rudy: 1.98 TR Pk Grad: 16.00 RA Press: 3.00 RVSP: 19.00 Great Vessels Aorta Ao Root-2D: 2.80 2.0-3.7 cm Ao Asc: 2.40 2.1-3.4 cm Updated in Other Vendor System with Status of Final Andrea Vides MD electronically signed on 12/25/2020 3:10:14 PM with status of Final
[2020-12-25 17:05] LABS: Glucose, Whole Blood 192 mg/dL (60-115)
[2020-12-25 20:01] LABS: Glucose, Whole Blood 223 mg/dL (60-115)
[2020-12-25] MEDS: Heparin Sodium,Porcine/1/2NS 25,000 UNIT/250 ML IV.SOLN 8.71 UNIT IVCONT (21:45)
[2020-12-25] MEDS: traZODone HCL 50 MG TABLET PO (21:49)
[2020-12-25] MEDS: carvediloL 3.125 MG TABLET 6.25 MG PO (21:49)
[2020-12-25] MEDS: Atorvastatin Calcium 40 MG TABLET PO (21:49)
[2020-12-25] MEDS: Aspirin Enteric Coated 81 MG TABLET.DR PO (21:49)
[2020-12-25] MEDS: Insulin Glargine,Hum.rec.anlog 100 UNIT/ML 10 ML VIAL 40 UNIT SUBCUT (21:50)
[2020-12-26] VITALS (10 sets, daily range): BP systolic 141–199; BP diastolic 60–82; PULSE 68–93; RESP 18–20; TEMP 36–36.8; O2SAT 94–98
[2020-12-26] MEDS: Omeprazole 40 MG CAPSULE.DR PO ×2 (06:25→16:10)
[2020-12-26 06:54] LABS: Hematocrit 26.1 % (37-47); Hemoglobin 8.1 g/dl (12.0-16.0); Mean Corpuscular Hemoglobin 25.9 pg (27.0-33.0); Mean Corpuscular Volume 83.4 fL (80-98); Platelet Count 203 X10*3/uL (160-400); Red Blood Count 3.13 X10*6/uL (4.20-5.50); Red Cell Distribution Width 13.2 % (11.0-16.0); White Blood Count 10.3 X10*3/uL (4.8-10.8)
[2020-12-26 07:07] LABS: Anion Gap 15 (12-20); Blood Urea Nitrogen 44 mg/dL (9-16); Carbon Dioxide 20 mmol/L (22-29); Chloride 110 mmol/L (96-108); Estimated Glomerular Filt Rate 19; Glucose Random 129 mg/dL (60-115); Potassium 4.5 mmol/L (3.3-5.1); Sodium 140 mmol/L (135-145)
[2020-12-26 07:41] LABS: Glucose, Whole Blood 135 mg/dL (60-115)
[2020-12-26 07:54] LABS: PTT Heparin Drip 42.8 SEC (53-77.9)
[2020-12-26] MEDS: Nitroglycerin 2 % Oint 1 GM Packet 1 INCH TRANSDERMA ×3 (08:55→22:31)
[2020-12-26] MEDS: Escitalopram Oxalate 10 MG TABLET PO (08:59)
[2020-12-26] MEDS: hydrALAZINE HCl 10 MG TABLET PO ×2 (08:59→22:30)
[2020-12-26] MEDS: Calcium + Vitamin D 250 MG TABLET PO ×2 (08:59→22:30)
[2020-12-26] MEDS: carvediloL 3.125 MG TABLET 6.25 MG PO ×2 (08:59→22:31)
[2020-12-26] MEDS: Magnesium Oxide 400 MG TABLET PO ×2 (08:59→22:30)
[2020-12-26] MEDS: Sucralfate 1 GM TABLET 2 GM PO (08:59)
[2020-12-26] MEDS: Gabapentin 100 MG CAPSULE PO ×2 (09:00→22:31)
[2020-12-26] MEDS: Metoclopramide HCl 5 MG TABLET PO ×4 (09:00→22:30)
[2020-12-26] MEDS: Heparin Sodium,Porcine 5,000 UNIT/ML VIAL 2900 UNIT IVPUSH (09:02)
--- NOTE | 2020-12-26 10:43 | HO.PM.IMPN ---
Subjective Subjective Date of Service: 12/26/20 <JOSE Spivey - Last Filed: 12/26/20 12:44> 12/26/20 <Ori Starkey MD - Last Filed: 12/26/20 12:48> Physical Exam Vital Signs: Vital Signs: Last Vital Signs Temp 97.1 F 12/26/20 07:50 Pulse 68 12/26/20 08:59 Resp 20 12/26/20 07:50 BP 166/72 H 12/26/20 08:59 Pulse Ox 94 12/26/20 07:50 Body Mass Index 38.4 <JOSE Spivey - Last Filed: 12/26/20 12:44> Const: General: no acute distress, alert and awake <JOSE Spivey - Last Filed: 12/26/20 12:44> Nutritional Appearance: well nourished <JOSE Spivey - Last Filed: 12/26/20 12:44> HENMT: Head: Yes normocephalic and Yes atraumatic <JOSE Spivey - Last Filed: 12/26/20 12:44> Eyes: Sclerae: sclerae normal <JOSE Spivey - Last Filed: 12/26/20 12:44> Chest: Chest palpation & inspection: normal inspection of the chest <JOSE Spivey - Last Filed: 12/26/20 12:44> Resp: Effort & Inspection: normal respiratory effort and no respiratory distress <JOSE Spivey - Last Filed: 12/26/20 12:44> Auscultation: clear to auscultation bilaterally <JOSE Spivey - Last Filed: 12/26/20 12:44> Cardio: Rate: regular rate <JOSE Spivey - Last Filed: 12/26/20 12:44> Rhythm: regular rhythm <JOSE Spivey - Last Filed: 12/26/20 12:44> GI: Palpation (GI): Soft to palpation and nontender <JOSE Spivey - Last Filed: 12/26/20 12:44> Neuro: Cranial nerves: Yes CN's II-XII intact bilaterally and Yes Bilaterally intact EOM present <JOSE Spivey - Last Filed: 12/26/20 12:44> Extrem: Other: s/p L BKA; right index finger distal phalanx amputation <JOSE Spivey - Last Filed: 12/26/20 12:44> Objective Data Current Medications Generic Name Dose Route Start Last Admin Trade Name Freq PRN Reason Stop Dose Admin Acetaminophen 650 mg 12/24/20 20:34 Acetaminophen 325 Mg Tablet PO Q6H PRN Pain, Mild (Pain Scale 1-3) Aspirin 81 mg 12/24/20 21:00 12/25/20 21:49 Aspirin Enteric Coated 81 Mg Tablet.Dr PO 81 mg BEDTIME MATTY Administration Atorvastatin Calcium 40 mg 12/24/20 21:00 12/25/20 21:49 Atorvastatin Calcium 40 Mg Tablet PO 40 mg BEDTIME MATTY Administration Calcium Carbonate/Cholecalciferol 250 mg 12/25/20 09:00 12/26/20 08:59 Calcium + Vitamin D 250 Mg Tablet PO 250 mg BID MATTY Administration Carvedilol 6.25 mg 12/25/20 21:00 12/26/20 08:59 Carvedilol 3.125 Mg Tablet PO 6.25 mg BID MATTY Administration Protocol Escitalopram Oxalate 10 mg 12/25/20 09:00 12/26/20 08:59 Escitalopram Oxalate 10 Mg Tablet PO 10 mg DAILY MATTY Administration Gabapentin 100 mg 12/24/20 21:00 12/26/20 09:00 Gabapentin 100 Mg Capsule PO 100 mg BID MATTY Administration Heparin Sodium (Porcine) 2,900 unit 12/24/20 15:09 12/26/20 09:02 Heparin Sodium,Porcine 5,000 Unit/Ml Vial 40 unit/kg (2900 unit) 2,900 unit IVPUSH Administration BOLUS PRN 40 unit/kg - Heparin Protocol Heparin Sodium (Porcine) 5,000 unit 12/24/20 15:09 Heparin Sodium,Porcine 5,000 Unit/Ml Vial IVPUSH BOLUS PRN 80 unit/kg - Heparin Protocol Hydralazine HCl 10 mg 12/24/20 21:00 12/26/20 08:59 Hydralazine Hcl 10 Mg Tablet PO 10 mg BID MATTY Administration Protocol Heparin Sodium/Sodium Chloride 25,000 unit in 250 mls @ 0 mls/hr 12/24/20 16:30 12/26/20 09:03 IVCONT 12/26/20 16:29 14 units/kg/hr .Q0M MATTY 10.16 mls/hr Titration Protocol Per Protocol Insulin Glargine 40 unit 12/24/20 21:00 12/25/20 21:50 Insulin Glargine,Hum.Rec.Anlog 100 Unit/Ml 10 Ml Vial SUBCUT 40 unit BEDTIME MATTY Administration Insulin Human Lispro 0 unit 12/24/20 21:00 12/26/20 09:06 Insulin Lispro 100 Unit/Ml 3 Ml Vial SUBCUT Not Given [facility] Protocol Magnesium Oxide 400 mg 12/24/20 21:00 12/26/20 08:59 Magnesium Oxide 400 Mg Tablet PO 400 mg BID MATTY Administration Metoclopramide HCl 5 mg 12/24/20 21:00 12/26/20 09:00 Metoclopramide Hcl 5 Mg Tablet PO 5 mg QIDACHS MATTY Administration Nitroglycerin 1 inch 12/24/20 20:00 12/26/20 08:55 Nitroglycerin 2 % Oint 1 Gm Packet TRANSDERMA 1 inch RQ6H WHILE AWAKE MATTY Administration Omeprazole 40 mg 12/25/20 06:30 12/26/20 06:25 Omeprazole 40 Mg Capsule.Dr PO 40 mg BID@0630,1630 MATTY Administration Sodium Chloride 3 ml 12/25/20 00:00 12/26/20 09:00 0.9 % Sodium Chloride Flush 3 Ml Syringe IVFLUSH Not Given QSHIFT MATTY Sucralfate 2 gm 12/25/20 09:00 12/26/20 08:59 Sucralfate 1 Gm Tablet PO 2 gm DAILY MATTY Administration Trazodone HCl 50 mg 12/24/20 21:00 12/25/20 21:49 Trazodone Hcl 50 Mg Tablet PO 50 mg BEDTIME MATTY Administration <JOSE Spivey - Last Filed: 12/26/20 12:44> Labs CBC & Chem 7: : 12/26/20 06:16 12/26/20 06:16 <JOSE Spivey - Last Filed: 12/26/20 12:44> Assessment and Plan (1) Non-ST elevated myocardial infarction: Status: Acute <JOSE Spivey - Last Filed: 12/26/20 12:44> Assessment and Plan: This is a 65-year-old female with a history of diabetes, CKD, heart failure, hypertension, anemia, dyslipidemia who presents to the emergency department with chest pain found to have NSTEMI NSTEMI trop peaked at 168. no more chest pain ECHO 12/25 showing Normal left ventricular cavity size. There is mildly increased left ventricular wall thickness. The visually estimated ejection fraction is between 35-40%. There is moderate global hypokinesis -AC with heparin x 48 hrs, to end 12/26 -Continue ASA, coreg, statin, nitrates -cardiology following HTN -increased dose of coreg, continue hydralazine -follow-up blood pressure Normocytic anemia chronic. H/H slowly trending down denies any bleeding -type and cross done, stool occult pending. Will transfuse 1 U rbc -follow CBC DM SSI, POCs, ADA diet -convert Levimir to Lantus CKD4 Scr at baseline -follow renal function closely -avoid nephrotoxins if possible Chronic combined systolic and diastolic HF No overt fluid overload -home lasix gerd/PUD continue prilosec, sucralfate Hyperkalemia. POA. Resolved. dvt ppx - heaprin This case was discussed with Dr. Starkey <JOSE Spivey - Last Filed: 12/26/20 12:44> Addendum to documentation by midlevel I saw and examined the patient and participated in the juan portion of the E/M service. I agree with the exam, management and plan as outlined above. Patient is being treated for NSTEMI. She presently has no chest pain or angina and is hmodynamically stable. .. Continue managment as above with Heparin for 48 hrs, ASA, BB, statin. To have stress test on Monday. Spoke to daughter at [facility] about plan. Otherwise I agree with the above <Ori Starkey MD - Last Filed: 12/26/20 12:48>
[2020-12-26] MEDS: Furosemide 20 MG TABLET 10 MG PO (11:28)
[2020-12-26] MEDS: Insulin Lispro 100 UNIT/ML 3 ML VIAL SUBCUT ×3 (11:30→22:29)
[2020-12-26 11:31] LABS: Glucose, Whole Blood 234 mg/dL (60-115)
--- NOTE | 2020-12-26 11:42 | PM.PNCARD ---
Subjective Subjective Date of Service: 12/26/20 Interval history: She seems comfortable. Denies any chest pain or other cardiac complaints. Review of Systems Review of Systems Yes all other systems are reviewed and are negative Cardiovascular: Reports as per HPI, Reports no additional cardiovascular complaints, Denies acrocyanosis, Denies cool extremities, Denies painful fingertips, Reports chest pain, Denies chest pain at rest, Denies diaphoresis, Denies syncope, Denies irregular heart rhythm, Denies claudication, Denies leg edema, Denies lightheadedness, Denies palpitations and Reports dyspnea Respiratory: Reports dyspnea Denies syncope Endocrine: Denies palpitations Physical Exam Vital Signs: Last Vital Signs Temp 97.8 F 12/26/20 11:36 Pulse 70 12/26/20 11:36 Resp 20 12/26/20 11:36 BP 172/79 H 12/26/20 11:36 Pulse Ox 97 12/26/20 11:36 Body Mass Index 38.4 Const General: cooperative, comfortable and no acute distress Orientation/consciousness: patient oriented x3 HENSD Other: Unremarkable Neck Neck: Yes normal visual inspection Chest Chest palpation & inspection: normal inspection of the chest Resp Auscultation: clear to auscultation bilaterally, no crackles and no wheezes Cardio Jugular venous distension: no JVD Palpation: normal PMI Heart sounds: S1 normal heart sound present, S2 normal heart sound present, no gallops, no murmurs and no rubs GI Palpation (GI): Soft to palpation Back/Spine/Pelvis Other: unremarkable Skin General skin exam: no rashes or lesions noted Neuro General: patient oriented x3 Extrem Other: Left below-knee amputation Psych Mental Status: mental status grossly normal Results Labs and Meds Result diagrams: 12/26/20 06:16 12/26/20 06:16 Lab results: Laboratory Results - last 24 hr 12/25/20 12/25/20 12/26/20 16:51 19:45 06:16 WBC 10.3 RBC 3.13 L Hgb 8.1 L Hct 26.1 L MCV 83.4 MCH 25.9 L MCHC 31.0 RDW 13.2 Plt Count 203 MPV 11.0 Absolute Nucleated RBC 0.000 Nucleated RBC % (auto) 0.0 PTT (Heparin Protocol) Sodium Potassium Chloride Carbon Dioxide Anion Gap BUN Creatinine Estim Creat Clear Calc Estimated GFR POC Glucose 192 H 223 H Random Glucose Calcium 12/26/20 12/26/20 12/26/20 06:16 07:17 07:33 WBC RBC Hgb Hct MCV MCH MCHC RDW Plt Count MPV Absolute Nucleated RBC Nucleated RBC % (auto) PTT (Heparin Protocol) 42.8 L D Sodium 140 Potassium 4.5 Chloride 110 H Carbon Dioxide 20 L Anion Gap 15 BUN 44 H Creatinine 2.49 H Estim Creat Clear Calc 20.0 Estimated GFR 19 POC Glucose 135 H Random Glucose 129 H Calcium 8.0 L 12/26/20 11:19 WBC RBC Hgb Hct MCV MCH MCHC RDW Plt Count MPV Absolute Nucleated RBC Nucleated RBC % (auto) PTT (Heparin Protocol) Sodium Potassium Chloride Carbon Dioxide Anion Gap BUN Creatinine Estim Creat Clear Calc Estimated GFR POC Glucose 234 H Random Glucose Calcium Progress Note: A&P Assessment and plan (1) Non-ST elevated myocardial infarction: Status: Acute (2) Nonischemic cardiomyopathy: Status: Acute (3) Type 2 diabetes mellitus with unspecified complications: Status: Acute (4) Essential hypertension: Status: Acute (5) Other and unspecified hyperlipidemia: Status: Acute Assessment and Plan: She clearly has elevated troponins suggestive of non ST elevation myocardial infarction. With LVEF 35-40% and moderate mitral annular calcification. LVEF have been low in the past as well. Numerous risk factors for vascular disease. She can stay on IV heparin for 48 hours. Resting part of pharmacological stress completed yesterday, and stress part can be done Monday. We will follow with you. Continue her medications for vascular risk factors. Fall Risk Details Current Medications: Current Medications Generic Name Dose Route Start Last Admin Trade Name Wang PRN Reason Stop Dose Admin Acetaminophen 650 mg 12/24/20 20:34 Acetaminophen 325 Mg Tablet PO Q6H PRN Pain, Mild (Pain Scale 1-3) Aspirin 81 mg 12/24/20 21:00 12/25/20 21:49 Aspirin Enteric Coated 81 Mg Tablet. PO 81 mg BEDTIME MATTY Administration Atorvastatin Calcium 40 mg 12/24/20 21:00 12/25/20 21:49 Atorvastatin Calcium 40 Mg Tablet PO 40 mg BEDTIME MATTY Administration Calcium Carbonate/Cholecalciferol 250 mg 12/25/20 09:00 12/26/20 08:59 Calcium + Vitamin D 250 Mg Tablet PO 250 mg BID MATTY Administration Carvedilol 6.25 mg 12/25/20 21:00 12/26/20 08:59 Carvedilol 3.125 Mg Tablet PO 6.25 mg BID [facility] Administration Protocol Escitalopram Oxalate 10 mg 12/25/20 09:00 12/26/20 08:59 Escitalopram Oxalate 10 Mg Tablet PO 10 mg DAILY MATTY Administration Furosemide 10 mg 12/26/20 11:00 12/26/20 11:28 Furosemide 20 Mg Tablet PO 10 mg Q2D MATTY Administration Protocol Gabapentin 100 mg 12/24/20 21:00 12/26/20 09:00 Gabapentin 100 Mg Capsule PO 100 mg BID MATTY Administration Heparin Sodium (Porcine) 2,900 unit 12/24/20 15:09 12/26/20 09:02 Heparin Sodium,Porcine 5,000 Unit/Ml Vial 40 unit/kg (2900 unit) 2,900 unit IVPUSH Administration BOLUS PRN 40 unit/kg - Heparin Protocol Heparin Sodium (Porcine) 5,000 unit 12/24/20 15:09 Heparin Sodium,Porcine 5,000 Unit/Ml Vial IVPUSH BOLUS PRN 80 unit/kg - Heparin Protocol Hydralazine HCl 10 mg 12/24/20 21:00 12/26/20 08:59 Hydralazine Hcl 10 Mg Tablet PO 10 mg BID [facility] Administration Protocol Heparin Sodium/Sodium Chloride 25,000 unit in 250 mls @ 0 mls/hr 12/24/20 16:30 12/26/20 09:03 IVCONT 12/26/20 16:29 14 units/kg/hr .Q0M [facility] 10.16 mls/hr Titration Protocol Per Protocol Insulin Glargine 40 unit 12/24/20 21:00 12/25/20 21:50 Insulin Glargine,Hum.Rec.Anlog 100 Unit/Ml 10 Ml Vial SUBCUT 40 unit BEDTIME [facility] Administration Insulin Human Lispro 0 unit 12/24/20 21:00 12/26/20 11:30 Insulin Lispro 100 Unit/Ml 3 Ml Vial SUBCUT 4 unit QIDACHS [facility] Administration Protocol Magnesium Oxide 400 mg 12/24/20 21:00 12/26/20 08:59 Magnesium Oxide 400 Mg Tablet PO 400 mg BID MATTY Administration Metoclopramide HCl 5 mg 12/24/20 21:00 12/26/20 11:27 Metoclopramide Hcl 5 Mg Tablet PO 5 mg QIDACHS [facility] Administration Nitroglycerin 1 inch 03/25/21 20:00 12/26/20 08:55 Nitroglycerin 2 % Oint 1 Gm Packet TRANSDERMA 1 inch RQ6H WHILE AWAKE MATTY Administration Omeprazole 40 mg 12/25/20 06:30 12/26/20 06:25 Omeprazole 40 Mg Capsule.Dr PO 40 mg BID@0630,1630 MATTY Administration Sodium Chloride 3 ml 12/25/20 00:00 12/26/20 09:00 0.9 % Sodium Chloride Flush 3 Ml Syringe IVFLUSH Not Given QSHIFT MATTY Sucralfate 2 gm 12/25/20 09:00 12/26/20 08:59 Sucralfate 1 Gm Tablet PO 2 gm DAILY MATTY Administration Trazodone HCl 50 mg 12/24/20 21:00 12/25/20 21:49 Trazodone Hcl 50 Mg Tablet PO 50 mg BEDTIME MATTY Administration Time Spent With Patient Time: Total time spent is greater than 50% in coordination of care (as documented) at patient's floor/unit and/or counseling patient: Time with patient: less than 15 minutes
[2020-12-26] MEDS: 0.9 % Sodium Chloride Flush 3 ML SYRINGE IVFLUSH (15:43)
[2020-12-26 16:01] LABS: Glucose, Whole Blood 209 mg/dL (60-115)
[2020-12-26 16:50] LABS: PTT Heparin Drip 72.2 SEC (53-77.9)
[2020-12-26 19:54] LABS: Glucose, Whole Blood 220 mg/dL (60-115)
[2020-12-26] MEDS: Insulin Glargine,Hum.rec.anlog 100 UNIT/ML 10 ML VIAL 40 UNIT SUBCUT (22:29)
[2020-12-26] MEDS: Atorvastatin Calcium 40 MG TABLET PO (22:30)
[2020-12-26] MEDS: Aspirin Enteric Coated 81 MG TABLET.DR PO (22:30)
[2020-12-26] MEDS: traZODone HCL 50 MG TABLET PO (22:30)
[2020-12-27] VITALS (10 sets, daily range): BP systolic 137–180; BP diastolic 67–97; PULSE 69–80; RESP 18–20; TEMP 35.5–36.6; O2SAT 92–98; BMI 38.7
[2020-12-27] MEDS: Omeprazole 40 MG CAPSULE.DR PO ×2 (07:04→16:17)
[2020-12-27 07:14] LABS: Hematocrit 31.2 % (37-47); Mean Corpuscular HGB Conc 32.1 g/dl (31.0-35.0); Mean Corpuscular Volume 84.3 fL (80-98); Mean Platelet Volume 11.3 fL (9.4-12.3); Platelet Count 202 X10*3/uL (160-400); Red Cell Distribution Width 13.4 % (11.0-16.0); White Blood Count 10.8 X10*3/uL (4.8-10.8)
[2020-12-27 07:31] LABS: Glucose, Whole Blood 159 mg/dL (60-115)
[2020-12-27 07:37] LABS: Anion Gap 18 (12-20); Blood Urea Nitrogen 41 mg/dL (9-16); Carbon Dioxide 17 mmol/L (22-29); Chloride 110 mmol/L (96-108); Creatinine Clr Calc Pharmacy 21.2; Estimated Glomerular Filt Rate 21; Glucose Random 161 mg/dL (60-115); Potassium 4.8 mmol/L (3.3-5.1); Sodium 140 mmol/L (135-145)
[2020-12-27] MEDS: Sucralfate 1 GM TABLET 2 GM PO (07:46)
[2020-12-27] MEDS: Escitalopram Oxalate 10 MG TABLET PO (07:47)
[2020-12-27] MEDS: Calcium + Vitamin D 250 MG TABLET PO ×2 (07:47→20:38)
[2020-12-27] MEDS: Gabapentin 100 MG CAPSULE PO ×2 (07:47→20:37)
[2020-12-27] MEDS: Magnesium Oxide 400 MG TABLET PO ×2 (07:48→20:37)
[2020-12-27] MEDS: hydrALAZINE HCl 10 MG TABLET PO ×2 (07:48→20:41)
[2020-12-27] MEDS: Metoclopramide HCl 5 MG TABLET PO ×4 (07:48→20:38)
[2020-12-27] MEDS: 0.9 % Sodium Chloride Flush 3 ML SYRINGE IVFLUSH ×3 (07:48→20:35)
[2020-12-27] MEDS: Insulin Lispro 100 UNIT/ML 3 ML VIAL SUBCUT ×4 (07:50→20:31)
[2020-12-27] MEDS: carvediloL 3.125 MG TABLET 6.25 MG PO ×2 (07:52→20:39)
[2020-12-27] MEDS: Nitroglycerin 2 % Oint 1 GM Packet 1 INCH TRANSDERMA ×3 (09:15→20:33)
[2020-12-27 11:17] LABS: Glucose, Whole Blood 228 mg/dL (60-115)
--- NOTE | 2020-12-27 11:47 | P.PNIM_ITS ---
Subjective Subjective Date of Service: 12/27/20 <JOSE Spivey - Last Filed: 12/27/20 11:56> 12/27/20 <Ori Starkey MD - Last Filed: 12/27/20 13:43> Interval History: f/u for NSTEMI no overnight events, no complaints this am ROS: CV- no chest pain, no palpitations PULM: no shortness of breath, no cough GI: no abdominal pain, no diarrhea <JOSE Spivey - Last Filed: 12/27/20 11:56> Review of Systems Review of Systems: Yes all other systems are reviewed and are negative <JOSE Spivey - Last Filed: 12/27/20 11:56> Physical Exam Vital Signs: Vital Signs: Last Vital Signs Temp 96 F L 12/27/20 10:49 Pulse 71 12/27/20 10:49 Resp 20 12/27/20 10:49 BP 157/72 H 12/27/20 10:49 Pulse Ox 94 12/27/20 10:49 Body Mass Index 38.4 <JOSE Spivey - Last Filed: 12/27/20 11:56> Const: General: no acute distress, alert and awake <JOSE Spivey - Last Filed: 12/27/20 11:56> Nutritional Appearance: well nourished <JOSE Spivey - Last Filed: 12/27/20 11:56> HENMT: Head: Yes normocephalic and Yes atraumatic <JOSE Spivey - Last Filed: 12/27/20 11:56> Eyes: Sclerae: sclerae normal <JOSE Spivey - Last Filed: 12/27/20 11:56> Chest: Chest palpation & inspection: normal inspection of the chest <JOSE Spivey Last Filed: 12/27/20 11:56> Resp: Effort & Inspection: normal respiratory effort and no respiratory distress <JOSE Spivey - Last Filed: 12/27/20 11:56> Auscultation: clear to auscultation bilaterally <JOSE Spivey - Last Filed: 12/27/20 11:56> Cardio: Rate: regular rate <JOSE Spivey Last Filed: 12/27/20 11:56> Rhythm: regular rhythm <JOSE Spivey Last Filed: 12/27/20 11:56> GI: Palpation (GI): Soft to palpation and nontender <JOSE Spivey Last Filed: 12/27/20 11:56> Neuro: Cranial nerves: Yes CN's II-XII intact bilaterally and Yes Bilaterally intact EOM present <JOSE Spivey Last Filed: 12/27/20 11:56> Extrem: Other: s/p L BKA; right index finger distal phalanx amputation <JOSE Spivey Last Filed: 12/27/20 11:56> Objective Data Current Medications Generic Name Dose Route Start Last Admin Trade Name Freq PRN Reason Stop Dose Admin Acetaminophen 650 mg 12/24/20 20:34 Acetaminophen 325 Mg Tablet PO Q6H PRN Pain, Mild (Pain Scale 1-3) Aspirin 81 mg 12/24/20 21:00 12/26/20 22:30 Aspirin Enteric Coated 81 Mg Tablet.Dr PO 81 mg BEDTIME MATTY Administration Atorvastatin Calcium 40 mg 12/24/20 21:00 12/26/20 22:30 Atorvastatin Calcium 40 Mg Tablet PO 40 mg BEDTIME MATTY Administration Calcium Carbonate/Cholecalciferol 250 mg 12/25/20 09:00 12/27/20 07:47 Calcium + Vitamin D 250 Mg Tablet PO 250 mg BID MATTY Administration Carvedilol 6.25 mg 12/25/20 21:00 12/27/20 07:52 Carvedilol 3.125 Mg Tablet PO 6.25 mg BID MATTY Administration Protocol Escitalopram Oxalate 10 mg 12/25/20 09:00 12/27/20 07:47 Escitalopram Oxalate 10 Mg Tablet PO 10 mg DAILY MATTY Administration Furosemide 10 mg 12/26/20 11:00 12/26/20 11:28 Furosemide 20 Mg Tablet PO 10 mg Q2D MATTY Administration Protocol Gabapentin 100 mg 12/24/20 21:00 12/27/20 07:47 Gabapentin 100 Mg Capsule PO 100 mg BID MATTY Administration Heparin Sodium (Porcine) 5,000 unit 12/27/20 12:00 Heparin Sodium,Porcine 5,000 Unit/Ml Vial SUBCUT Q12H MATTY Hydralazine HCl 10 mg 12/24/20 21:00 12/27/20 07:48 Hydralazine Hcl 10 Mg Tablet PO 10 mg BID MATTY Administration Protocol Insulin Glargine 40 unit 12/24/20 21:00 12/26/20 22:29 Insulin Glargine,Hum.Rec.Anlog 100 Unit/Ml 10 Ml Vial SUBCUT 40 unit BEDTIME MATTY Administration Insulin Human Lispro 0 unit 12/24/20 21:00 12/27/20 11:35 Insulin Lispro 100 Unit/Ml 3 Ml Vial SUBCUT 4 unit QIDACHS [facility] Administration Protocol Magnesium Oxide 400 mg 12/24/20 21:00 12/27/20 07:48 Magnesium Oxide 400 Mg Tablet PO 400 mg BID MATTY Administration Metoclopramide HCl 5 mg 12/24/20 21:00 12/27/20 11:34 Metoclopramide Hcl 5 Mg Tablet PO 5 mg QIDACHS MATTY Administration Nitroglycerin 1 inch 12/24/20 20:00 12/27/20 09:15 Nitroglycerin 2 % Oint 1 Gm Packet TRANSDERMA 1 inch RQ6H WHILE AWAKE MATTY Administration Omeprazole 40 mg 12/25/20 06:30 12/27/20 07:04 Omeprazole 40 Mg Capsule.Dr PO 40 mg BID@0630,1630 MATTY Administration Sodium Chloride 3 ml 12/25/20 00:00 12/27/20 07:48 0.9 % Sodium Chloride Flush 3 Ml Syringe IVFLUSH 3 ml QSHIFT MATTY Administration Sucralfate 2 gm 12/25/20 09:00 12/27/20 07:46 Sucralfate 1 Gm Tablet PO 2 gm DAILY MATTY Administration Trazodone HCl 50 mg 12/24/20 21:00 12/26/20 22:30 Trazodone Hcl 50 Mg Tablet PO 50 mg BEDTIME MATTY Administration <JOSE Spivey - Last Filed: 12/27/20 11:56> Labs CBC & Chem 7: : 12/27/20 05:54 12/27/20 05:54 <JOSE Spivey - Last Filed: 12/27/20 11:56> Assessment and Plan (1) Non-ST elevated myocardial infarction: Status: Acute <JOSE Spivey - Last Filed: 12/27/20 11:56> Assessment and Plan: This is a 65-year-old female with a history of diabetes, CKD, heart failure, hypertension, anemia, dyslipidemia who presents to the emergency department with chest pain found to have NSTEMI NSTEMI trop peaked at 168. no more chest pain ECHO 12/25 showing Normal left ventricular cavity size. There is mildly increased left ventricular wall thickness. The visually estimated ejection fraction is between 35-40%. There is moderate global hypokinesis s/p AC with heparin x 48 hrs. Stress test resting images done, stress portion to be done Thursday 12/28. Further management based on results. -Continue ASA, coreg, statin, nitrates -cardiology following HTN -Continue coreg (dose increased from 3.125 to 6.25), continue hydralazine -follow blood pressure Normocytic anemia chronic. H/H was slowly trending down. denies any bleeding. s/p 1U rbc 12/26 with appropriate rise in H/H -stool occult pending -follow CBC DM SSI, POCs, ADA diet -Levimir converted to Lantus CKD4 Scr at baseline -follow renal function closely -avoid nephrotoxins if possible Chronic combined systolic and diastolic HF No overt fluid overload -Continue lasix gerd/PUD -continue prilosec, sucralfate Hyperkalemia. POA. Resolved. dvt ppx - heaprin Attending: Dr. Starkey <JOSE Spivey - Last Filed: 12/27/20 11:56> Addendum to documentation by midlevel of 12/27 I saw and examined the patient and participated in the juan portion of the E/M service. I agree with the exam, management and plan as outlined above. Patient is being treated for NSTEMI. She presently has no chest pain or angina and remains hmodynamically stable. .. Continue managment as above: off Heparin after 48 hrs, ASA, BB, statin. To complete stress test tomorrow 12/28. <Ori Starkey MD - Last Filed: 12/27/20 13:43>
[2020-12-27] MEDS: Heparin Sodium,Porcine 5,000 UNIT/ML VIAL 5000 UNIT SUBCUT (11:56)
--- NOTE | 2020-12-27 12:58 | PM.PNCARD ---
Subjective Subjective Date of Service: 12/27/20 Interval history: No chest pain other cardiac complaints. Review of Systems Review of Systems Yes all other systems are reviewed and are negative Cardiovascular: Reports as per HPI, Reports no additional cardiovascular complaints, Denies acrocyanosis, Denies cool extremities, Denies painful fingertips, Reports chest pain, Denies chest pain at rest, Denies diaphoresis, Denies syncope, Denies irregular heart rhythm, Denies claudication, Denies leg edema, Denies lightheadedness, Denies palpitations and Reports dyspnea Respiratory: Reports dyspnea Denies syncope Endocrine: Denies palpitations Physical Exam Vital Signs: Last Vital Signs Temp 96 F L 12/27/20 10:49 Pulse 71 12/27/20 10:49 Resp 20 12/27/20 10:49 BP 157/72 H 12/27/20 10:49 Pulse Ox 94 12/27/20 10:49 Body Mass Index 38.4 Const General: cooperative, comfortable and no acute distress Orientation/consciousness: patient oriented x3 HENMT Other: Unremarkable Neck Neck: Yes normal visual inspection Chest Chest palpation & inspection: normal inspection of the chest Resp Auscultation: clear to auscultation bilaterally, no crackles and no wheezes Cardio Jugular venous distension: no JVD Palpation: normal PMI Heart sounds: S1 normal heart sound present, S2 normal heart sound present, no gallops, no murmurs and no rubs GI Palpation (GI): Soft to palpation Back/Spine/Pelvis Other: unremarkable Skin General skin exam: no rashes or lesions noted Neuro General: patient oriented x3 Extrem Other: Left below-knee amputation Psych Mental Status: mental status grossly normal Results Labs and Meds Result diagrams: 12/27/20 05:54 12/27/20 05:54 Lab results: Laboratory Results - last 24 hr 12/24/20 12/26/20 12/26/20 18:36 15:50 16:16 WBC RBC Hgb Hct MCV MCH MCHC RDW Plt Count MPV Absolute Nucleated RBC Nucleated RBC % (auto) PTT (Heparin Protocol) 72.2 D Sodium Potassium Chloride Carbon Dioxide Anion Gap BUN Creatinine Estim Creat Clear Calc Estimated GFR POC Glucose 209 H Random Glucose Calcium Blood Type B Positive Antibody Screen NEGATIVE Crossmatch See Detail 12/26/20 12/27/20 12/27/20 19:41 05:54 05:54 WBC 10.8 RBC 3.70 L Hgb 10.0 L D Hct 31.2 L MCV 84.3 MCH 27.0 MCHC 32.1 RDW 13.4 Plt Count 202 MPV 11.3 Absolute Nucleated RBC 0.000 Nucleated RBC % (auto) 0.0 PTT (Heparin Protocol) Sodium 140 Potassium 4.8 Chloride 110 H Carbon Dioxide 17 L Anion Gap 18 BUN 41 H Creatinine 2.35 H Estim Creat Clear Calc 21.2 Estimated GFR 21 POC Glucose 220 H Random Glucose 161 H Calcium 8.0 L Blood Type Antibody Screen Crossmatch 12/27/20 12/27/20 06:57 10:51 WBC RBC Hgb Hct MCV MCH MCHC RDW Plt Count MPV Absolute Nucleated RBC Nucleated RBC % (auto) PTT (Heparin Protocol) Sodium Potassium Chloride Carbon Dioxide Anion Gap BUN Creatinine Estim Creat Clear Calc Estimated GFR POC Glucose 159 H 228 H Random Glucose Calcium Blood Type Antibody Screen Crossmatch Progress Note: A&P Assessment and plan (1) Non-ST elevated myocardial infarction: Status: Acute (2) Nonischemic cardiomyopathy: Status: Acute (3) Type 2 diabetes mellitus with unspecified complications: Status: Acute (4) Essential hypertension: Status: Acute (5) Other and unspecified hyperlipidemia: Status: Acute Assessment and Plan: She clearly has elevated troponins with rise and fall suggestive of non ST elevation myocardial infarction. Echo with LVEF 35-40% and moderate mitral annular calcification. LVEF have been low in the past as well. Numerous risk factors for vascular disease. Resting part of pharmacological stress completed monday, and stress part can be done Monday. We will follow with you. Continue her medications for vascular risk factors. Fall Risk Details Current Medications: Current Medications Generic Name Dose Route Start Last Admin Trade Name Otilioq PRN Reason Stop Dose Admin Acetaminophen 650 mg 12/24/20 20:34 Acetaminophen 325 Mg Tablet PO Q6H PRN Pain, Mild (Pain Scale 1-3) Aspirin 81 mg 12/24/20 21:00 12/26/20 22:30 Aspirin Enteric Coated 81 Mg Tablet. PO 81 mg BEDTIME MATTY Administration Atorvastatin Calcium 40 mg 12/24/20 21:00 12/26/20 22:30 Atorvastatin Calcium 40 Mg Tablet PO 40 mg BEDTIME MATTY Administration Calcium Carbonate/Cholecalciferol 250 mg 12/25/20 09:00 12/27/20 07:47 Calcium + Vitamin D 250 Mg Tablet PO 250 mg BID MATTY Administration Carvedilol 6.25 mg 12/25/20 21:00 12/27/20 07:52 Carvedilol 3.125 Mg Tablet PO 6.25 mg BID MATTY Administration Protocol Escitalopram Oxalate 10 mg 12/25/20 09:00 12/27/20 07:47 Escitalopram Oxalate 10 Mg Tablet PO 10 mg DAILY MATTY Administration Furosemide 10 mg 12/26/20 11:00 12/26/20 11:28 Furosemide 20 Mg Tablet PO 10 mg Q2D MATTY Administration Protocol Gabapentin 100 mg 12/24/20 21:00 12/27/20 07:47 Gabapentin 100 Mg Capsule PO 100 mg BID MATTY Administration Heparin Sodium (Porcine) 5,000 unit 12/27/20 12:00 12/27/20 11:56 Heparin Sodium,Porcine 5,000 Unit/Ml Vial SUBCUT 5,000 unit Q12H MATTY Administration Hydralazine HCl 10 mg 12/24/20 21:00 12/27/20 07:48 Hydralazine Hcl 10 Mg Tablet PO 10 mg BID MATTY Administration Protocol Insulin Glargine 40 unit 12/24/20 21:00 12/26/20 22:29 Insulin Glargine,Hum.Rec.Anlog 100 Unit/Ml 10 Ml Vial SUBCUT 40 unit BEDTIME MATTY Administration Insulin Human Lispro 0 unit 12/24/20 21:00 12/27/20 11:35 Insulin Lispro 100 Unit/Ml 3 Ml Vial SUBCUT 4 unit QIDACHS [facility] Administration Protocol Magnesium Oxide 400 mg 12/24/20 21:00 12/27/20 07:48 Magnesium Oxide 400 Mg Tablet PO 400 mg BID MATTY Administration Metoclopramide HCl 5 mg 12/24/20 21:00 12/27/20 11:34 Metoclopramide Hcl 5 Mg Tablet PO 5 mg QIDACHS MATTY Administration Nitroglycerin 1 inch 12/24/20 20:00 12/27/20 09:15 Nitroglycerin 2 % Oint 1 Gm Packet TRANSDERMA 1 inch RQ6H WHILE AWAKE MATTY Administration Omeprazole 40 mg 12/25/20 06:30 12/27/20 07:04 Omeprazole 40 Mg Capsule.Dr PO 40 mg BID@0630,1630 MATTY Administration Sodium Chloride 3 ml 12/25/20 00:00 12/27/20 07:48 0.9 % Sodium Chloride Flush 3 Ml Syringe IVFLUSH 3 ml QSHIFT MATTY Administration Sucralfate 2 gm 12/25/20 09:00 12/27/20 07:46 Sucralfate 1 Gm Tablet PO 2 gm DAILY MATTY Administration Trazodone HCl 50 mg 12/24/20 21:00 12/26/20 22:30 Trazodone Hcl 50 Mg Tablet PO 50 mg BEDTIME MATTY Administration Time Spent With Patient Time: Total time spent is greater than 50% in coordination of care (as documented) at patient's floor/unit and/or counseling patient: Time with patient: less than 15 minutes
[2020-12-27 16:03] LABS: Glucose, Whole Blood 264 mg/dL (60-115)
[2020-12-27 17:36] LABS: OBS Int Ctl Valid YES; OBS1 NEGATIVE (NEGATIVE)
[2020-12-27 20:15] LABS: Glucose, Whole Blood 250 mg/dL (60-115)
[2020-12-27] MEDS: Insulin Glargine,Hum.rec.anlog 100 UNIT/ML 10 ML VIAL 40 UNIT SUBCUT (20:32)
[2020-12-27] MEDS: Aspirin Enteric Coated 81 MG TABLET.DR PO (20:37)
[2020-12-27] MEDS: Atorvastatin Calcium 40 MG TABLET PO (20:37)
[2020-12-27] MEDS: traZODone HCL 50 MG TABLET PO (20:37)
[2020-12-28] MEDS: Heparin Sodium,Porcine 5,000 UNIT/ML VIAL 5000 UNIT SUBCUT ×2 (00:26→13:14)
[2020-12-28 03:29] VITALS: BP 160/70; PULSE 71; RESP 20; TEMP 36.6; O2SAT 93
[2020-12-28] MEDS: Omeprazole 40 MG CAPSULE.DR PO ×2 (06:02→16:30)
[2020-12-28 07:50] LABS: Glucose, Whole Blood 119 mg/dL (60-115)
[2020-12-28 08:00] VITALS: BP 110/48; PULSE 70; RESP 18; TEMP 37.1; O2SAT 94
[2020-12-28] MEDS: Sucralfate 1 GM TABLET 2 GM PO (08:29)
[2020-12-28] MEDS: 0.9 % Sodium Chloride Flush 3 ML SYRINGE IVFLUSH ×2 (08:29→14:22)
[2020-12-28] MEDS: Metoclopramide HCl 5 MG TABLET PO ×2 (08:29→16:31)
[2020-12-28 08:30] VITALS: BP 153/73; PULSE 100
[2020-12-28] MEDS: Gabapentin 100 MG CAPSULE PO (08:30)
[2020-12-28] MEDS: hydrALAZINE HCl 10 MG TABLET PO (08:30)
[2020-12-28] MEDS: Calcium + Vitamin D 250 MG TABLET PO (08:30)
[2020-12-28] MEDS: Magnesium Oxide 400 MG TABLET PO (08:30)
[2020-12-28] MEDS: carvediloL 3.125 MG TABLET 6.25 MG PO (08:30)
[2020-12-28] MEDS: Escitalopram Oxalate 10 MG TABLET PO (08:31)
[2020-12-28] MEDS: Nitroglycerin 2 % Oint 1 GM Packet 1 INCH TRANSDERMA ×2 (08:31→14:21)
[2020-12-28] MEDS: Furosemide 20 MG TABLET 10 MG PO (13:14)
[2020-12-28 13:29] LABS: Glucose, Whole Blood 179 mg/dL (60-115)
[2020-12-28 13:30] VITALS: BP 158/63; PULSE 70; RESP 18; TEMP 36.9; O2SAT 99
--- NOTE | 2020-12-28 14:39 | MHC.CM.PN ---
DP Female 65 DX NSTEMI. DP is home with resumption of services. Pt has [employer] services and [facility]. Homecare services are provided by [facility]. CM will follow.
[2020-12-28 15:32] VITALS: BP 158/63; PULSE 71; RESP 18; TEMP 36.7; O2SAT 97
[2020-12-28 16:00] LABS: Glucose, Whole Blood 184 mg/dL (60-115)
[2020-12-28] MEDS: Insulin Lispro 100 UNIT/ML 3 ML VIAL SUBCUT (16:30)
--- NOTE | 2020-12-28 16:54 | HO.PM.IMPN ---
Subjective Subjective Date of Service: 12/28/20 <Maria Luisa Matos NP - Last Filed: 12/28/20 17:46> 12/29/20 <Constantino Feliz MD - Last Filed: 12/29/20 11:44> Interval History: Follow up NSTEMI, no chest pain <Maria Luisa Matos NP - Last Filed: 12/28/20 17:46> Physical Exam Vital Signs: Vital Signs: Last Vital Signs Temp 98.1 F 12/28/20 15:32 Pulse 71 12/28/20 15:32 Resp 18 12/28/20 15:32 BP 158/63 H 12/28/20 15:32 Pulse Ox 97 12/28/20 15:32 Body Mass Index 38.7 <Maria Luisa Matos NP - Last Filed: 12/28/20 17:46> HENMT: Other: Appearing in no acute distress lung sounds are clear to auscultation heart regular rate rhythm, clear S1, S2 positive bowel sounds, abdomen is soft, nontender neuro patient is alert x3, no focal deficits <Maria Luisa Matos NP - Last Filed: 12/28/20 17:46> Objective Data Current Medications Generic Name Dose Route Start Last Admin Trade Name Otilioq PRN Reason Stop Dose Admin Acetaminophen 650 mg 12/24/20 20:34 Acetaminophen 325 Mg Tablet PO Q6H PRN Pain, Mild (Pain Scale 1-3) Aspirin 81 mg 12/24/20 21:00 12/27/20 20:37 Aspirin Enteric Coated 81 Mg Tablet.Dr PO 81 mg BEDTIME MATTY Administration Atorvastatin Calcium 40 mg 12/24/20 21:00 12/27/20 20:37 Atorvastatin Calcium 40 Mg Tablet PO 40 mg BEDTIME MATTY Administration Calcium Carbonate/Cholecalciferol 250 mg 12/25/20 09:00 12/28/20 08:30 Calcium + Vitamin D 250 Mg Tablet PO 250 mg BID MATTY Administration Carvedilol 6.25 mg 12/25/20 21:00 12/28/20 08:30 Carvedilol 3.125 Mg Tablet PO 6.25 mg BID MATTY Administration Protocol Escitalopram Oxalate 10 mg 12/25/20 09:00 12/28/20 08:31 Escitalopram Oxalate 10 Mg Tablet PO 10 mg DAILY MATTY Administration Furosemide 10 mg 12/26/20 11:00 12/28/20 13:14 Furosemide 20 Mg Tablet PO 10 mg Q2D MATTY Administration Protocol Gabapentin 100 mg 12/24/20 21:00 12/28/20 08:30 Gabapentin 100 Mg Capsule PO 100 mg BID MATTY Administration Heparin Sodium (Porcine) 5,000 unit 12/27/20 12:00 12/28/20 13:14 Heparin Sodium,Porcine 5,000 Unit/Ml Vial SUBCUT 5,000 unit Q12H MATTY Administration Hydralazine HCl 10 mg 12/24/20 21:00 12/28/20 08:30 Hydralazine Hcl 10 Mg Tablet PO 10 mg BID MATTY Administration Protocol Insulin Glargine 40 unit 12/24/20 21:00 12/27/20 20:32 Insulin Glargine,Hum.Rec.Anlog 100 Unit/Ml 10 Ml Vial SUBCUT 40 unit BEDTIME MATTY Administration Insulin Human Lispro 0 unit 12/24/20 21:00 12/28/20 16:30 Insulin Lispro 100 Unit/Ml 3 Ml Vial SUBCUT 2 unit QIDACHS MATTY Administration Protocol Magnesium Oxide 400 mg 12/24/20 21:00 12/28/20 08:30 Magnesium Oxide 400 Mg Tablet PO 400 mg BID MATTY Administration Metoclopramide HCl 5 mg 12/24/20 21:00 12/28/20 16:31 Metoclopramide Hcl 5 Mg Tablet PO 5 mg QIDACHS MATTY Administration Nitroglycerin 1 inch 12/24/20 20:00 12/28/20 14:21 Nitroglycerin 2 % Oint 1 Gm Packet TRANSDERMA 1 inch RQ6H WHILE AWAKE MATTY Administration Omeprazole 40 mg 12/25/20 06:30 12/28/20 16:30 Omeprazole 40 Mg Capsule.Dr PO 40 mg BID@0630,1630 MATTY Administration Sodium Chloride 3 ml 12/25/20 00:00 12/28/20 14:22 0.9 % Sodium Chloride Flush 3 Ml Syringe IVFLUSH 3 ml QSHIFT MATTY Administration Sucralfate 2 gm 12/25/20 09:00 12/28/20 08:29 Sucralfate 1 Gm Tablet PO 2 gm DAILY MATTY Administration Trazodone HCl 50 mg 12/24/20 21:00 12/27/20 20:37 Trazodone Hcl 50 Mg Tablet PO 50 mg BEDTIME MATTY Administration <Maria Luisa Matos NP - Last Filed: 12/28/20 17:46> Labs CBC & Chem 7: : 12/27/20 05:54 12/27/20 05:54 <Maria Luisa Matos NP - Last Filed: 12/28/20 17:46> Assessment and Plan (1) Non-ST elevated myocardial infarction: Status: Acute <Maria Luisa Matos NP - Last Filed: 12/28/20 17:46> Assessment and Plan: 65-year-old female with a history of diabetes, CKD, heart failure, hypertension, anemia, dyslipidemia who presents to the emergency department with chest pain found to have NSTEMI NSTEMI. Trop peaked at 168. No more chest pain. ECHO 12/25 showing Normal left ventricular cavity size. There is mildly increased left ventricular wall thickness. The visually estimated ejection fraction is between 35-40%There is moderate global hypokinesis. -s/p IV heparin x 48 hrs. Stress test resting images done, stress portion report pending. -Continue ASA, coreg, statin, nitrates -cardiology following HTN -Continue coreg (dose increased from 3.125 to 6.25), continue hydralazine -follow blood pressure Normocytic anemia. Chronic. H/H was slowly trending down. Denies any bleeding. -s/p 1unit PRBC 12/26 with appropriate rise in H/H -stool occult negative -follow CBC Diabetes -SSI, POCs, ADA diet -Levimir converted to Lantus CKD4. Scr at baseline -follow renal function closely -avoid nephrotoxins if possible Chronic combined systolic and diastolic HF. No overt fluid overload -Continue lasix Gerd/PUD -continue prilosec, sucralfate Hyperkalemia. POA. Resolved. Dispo: Depending on stress report. If safe, possibly tomorrow. Attending: Dr. Feliz <Maria Luisa Matos NP - Last Filed: 12/28/20 17:46> Late Entry for 12/28/2020 Patient seen and examined independently and I was present during juan portion of E/M service. Agree with Jane Matos NP's history, physical, assessment, and plan. D/C planning once stress testing results confirmed. Came back negative and so patient will be d/c home. <Constantino Feliz MD - Last Filed: 12/29/20 11:44>
--- NOTE | 2020-12-28 17:25 | P.DS_ITS ---
DS: Providers Provider Date of Service: 12/28/20 <Maria Luisa Matos NP - Last Filed: 12/28/20 17:46> 12/28/20 <Constantino Feliz MD - Last Filed: 12/29/20 11:46> Date of admission: 12/24/20 17:38 <Maria Luisa Matos NP - Last Filed: 12/28/20 17:46> Date of discharge: 12/28/20 <Maria Luisa Matos NP - Last Filed: 12/28/20 17:46> Primary care physician: Alexys Avila MD <Maria Luisa Matos NP - Last Filed: 12/28/20 17:46> Admitting clinician: Keysha Sánchez <Maria Luisa Matos NP - Last Filed: 12/28/20 17:46> Attending physician on admission: Constantino Feliz <Maria Luisa Matos NP - Last Filed: 12/28/20 17:46> Consults: 12/24/20 20:34 Consult to Cardiology Routine Consulting Provider: Andrea Vides Reason for consultation: nstemi <Maria Luisa Matos NP - Last Filed: 12/28/20 17:46> DS: Diagnosis Discharge Diagnosis (1) Non-ST elevated myocardial infarction: Status: Acute <Maria Luisa Matos NP - Last Filed: 12/28/20 17:46> DS: Medications Discharge Medications Home Medications: Home Medications Medication Instructions Recorded Confirmed aspirin 81 mg tablet,delayed 81 mg PO BEDTIME 12/08/20 12/24/20 release calcium carbonate 500 mg (1,250 1 tab PO BID 12/08/20 12/24/20 mg)-vitamin D3 400 unit tablet citalopram 20 mg tablet 20 mg PO DAILY 12/08/20 12/24/20 gabapentin 100 mg capsule 100 mg PO BID 12/08/20 12/24/20 insulin aspart U-100 100 unit/mL 8 - 24 unit SUBCUT TID 12/08/20 12/24/20 (3 mL) subcutaneous pen insulin detemir U-100 100 unit/mL 64 unit SUBCUT DAILY 12/08/20 12/24/20 (3 mL) subcutaneous pen magnesium oxide 400 mg (241.3 mg 400 mg PO BID 12/08/20 12/24/20 magnesium) tablet rosuvastatin 10 mg tablet 10 mg PO BEDTIME 12/08/20 12/24/20 trazodone 50 mg tablet 50 mg PO BEDTIME 12/08/20 12/24/20 Previous Rx's Medication Instructions Recorded metoclopramide HCl 5 mg tablet 5 mg PO QIDACHS 30 Days #120 tab 10/15/20 omeprazole 40 mg capsule,delayed 40 mg PO BID 30 Days #60 cap 11/05/20 release sucralfate 1 gram tablet 2 g PO DAILY 30 Days #60 tab 11/05/20 carvedilol 3.125 mg tablet 3.125 mg PO BID #60 tab 12/08/20 furosemide 20 mg tablet 10 mg PO Q OTHER DAY #20 tab 12/08/20 hydralazine 10 mg tablet 10 mg PO BID #60 tab 12/08/20 <Maria Luisa Matos NP - Last Filed: 12/28/20 17:46> DS: Summary Hospital Course Hospital Course: HP as per admitting provider This is a 65-year-old Norwegian-speaking female who presents to the emergency department with complaints of chest pain. She reports central pain, stabbing in nature since last night. The pain is associated with shortness of breath and has been constant since onset. There is some radiation to her neck and shoulders. She denies any previous history of chest pain. Blood pressure was elevated on arrival at 180/83. Lab work revealed troponin of 67.2 which increased to 168.0 on repeat. EKG showed T-wave inversion in leads 1, 2, AVF, the 4 through V6 which seen somewhat more prominent than previous. The case was discussed with the certified low vision therapist who recommended starting heparin for anticoagulation . NSTEMI. Presented with chest pain. Troponins peaked at 168, EKG showed t-wave inversios I, II and AVF and V4-V6. She was started on IV heparin for 48 hours. She had no more chest pain during admission. Her stress test portion showed no ischemia. She will continue aspirin, statin and calcium channel kain. CKD. Stayed near baseline. Diabetes. Stable during admission. Continue home medications. Attending: Dr. Feliz Attending Attestation: Late Entry for 12/28/2020 Patient seen and examined independently and I was present during juan portion of E/M service. Agree with Jane Matos NP's history, physical, assessment, and plan. Pt seen and examined on day of d/c. Stress test neg for ischemia. Treated with medical mgmt. Stable for d/c home. To f/u with cardiology as outpatient for further care as needed. <Maria Luisa Matos NP - Last Filed: 12/28/20 17:46> Time Spent with Patient Time attestation: Total time spent providing and/or coordinating discharge services: <Maria Luisa Matos NP - Last Filed: 12/28/20 17:46> Discharge coordination time: Greater than 30 minutes <Maria Luisa Matos NP - Last Filed: 12/28/20 17:46> Physical Exam Vital Signs: Vital Signs: Last Vital Signs Temp 98.1 F 12/28/20 15:32 Pulse 71 12/28/20 15:32 Resp 18 12/28/20 15:32 BP 158/63 H 12/28/20 15:32 Pulse Ox 97 12/28/20 15:32 Body Mass Index 38.7 <Maria Luisa Matos NP - Last Filed: 12/28/20 17:46> Appearing in no acute distress head is normocephalic atraumatic eyes pupils are PERRLA sclera is anicteric mouth throat mucous membranes are intact and moist neck is supple no lymphadenopathy, no JVD noted lung sounds are clear to auscultation heart regular rate rhythm, clear S1, S2 positive bowel sounds, abdomen is soft, nontender neuro patient is alert x3, no focal deficits <Maria Luisa Matos NP - Last Filed: 12/28/20 17:46> DS: Data Data Completed and Pending Labs on day of discharge: Laboratory Results - last 24 hr 12/27/20 12/27/20 12/28/20 16:57 20:07 07:32 POC Glucose 250 H 119 H Stool Occult Blood NEGATIVE 12/28/20 12/28/20 13:24 15:51 POC Glucose 179 H 184 H Stool Occult Blood <Maria Luisa Matos NP - Last Filed: 12/28/20 17:46> Discharge Plan Discharge Anticipated Discharge Date/Time: 12/28/20 17:16 <Maria Luisa Matos NP - Last Filed: 12/28/20 17:46> Patient Disposition: Home, Self-Care <Maria Luisa Matos NP - Last Filed: 12/28/20 17:46> Referrals: Alexys Avila MD [Primary Care Provider] - <Maria Luisa Matos NP - Last Filed: 12/28/20 17:46> Discharge Medications: Continued metoclopramide HCl 5 mg tablet 5 mg PO QIDACHS 30 Days Qty: 120 RF: 2 omeprazole 40 mg capsule,delayed release(DR/EC) 40 mg PO BID 30 Days Qty: 60 RF: 6 sucralfate [Carafate] 1 gram tablet 2 g PO DAILY 30 Days Qty: 60 RF: 6 insulin aspart U-100 100 unit/mL (3 mL) insulin pen 8 - 24 unit subcut TID RF: 0 gabapentin 100 mg capsule 100 mg PO BID RF: 0 rosuvastatin 10 mg tablet 10 mg PO BEDTIME RF: 0 magnesium oxide 400 mg (241.3 mg magnesium) tablet 400 mg PO BID RF: 0 aspirin 81 mg tablet,delayed release (DR/EC) 81 mg PO BEDTIME RF: 0 trazodone 50 mg tablet 50 mg PO BEDTIME RF: 0 citalopram 20 mg tablet 20 mg PO DAILY RF: 0 calcium carbonate-vitamin D3 500 mg(1,250mg) -400 unit tablet 1 tab PO BID RF: 0 insulin detemir U-100 100 unit/mL (3 mL) insulin pen 64 unit subcut DAILY RF: 0 hydralazine 10 mg tablet 10 mg PO BID Qty: 60 RF: 2 carvedilol [Coreg] 3.125 mg tablet 3.125 mg PO BID Qty: 60 RF: 2 furosemide [Lasix] 20 mg tablet 10 mg PO Q OTHER DAY Qty: 20 RF: 2 <Maria Luisa Matos NP - Last Filed: 12/28/20 17:46> Discharge Orders: Discharge Order (Routine); Ordered 12/28/20 Ordered By: Maria Luisa Matos <Maria Luisa Matos NP - Last Filed: 12/28/20 17:46> Diet: advance to usual diet <Maria Luisa Matos NP - Last Filed: 12/28/20 17:46> advance to usual diet <Constantino Feliz MD - Last Filed: 12/29/20 11:46> Activity on Discharge: As tolerated <Maria Luisa Matos NP - Last Filed: 12/28/20 17:46> As tolerated <Constantino Feliz MD - Last Filed: 12/29/20 11:46> Stand Alone Forms: Patient Portal Discharge page <Maria Luisa Matos NP - Last Filed: 12/28/20 17:46> Care Plan Goals: Remain chest pain free <Maria Luisa Matos NP - Last Filed: 12/28/20 17:46> Health Concerns: NSTEMI <Maria Luisa Matos NP - Last Filed: 12/28/20 17:46> Plan of Treatment: Follow up with primary care provider as needed Follow up with cardiology as needed. <Maria Luisa Matos NP - Last Filed: 12/28/20 17:46> Discharge Date/Time: 12/28/20 18:45 <Maria Luisa Matos NP - Last Filed: 12/28/20 17:46>
== END 2020-12-28 18:45 | disposition home or self-care (01) | DRG 281 ==
LOC: HO.ED 16:26 → HO.EDOVER 17:50 → HO.IMC 18:24
PROVIDERS: Internal Medicine; Nurse Practitioner Primary Care; Physician Assistant Medical; Admitting Provider Family Medicine; Emergency Provider Emergency Medicine; PCP Internal Medicine; Visit Provider Family Medicine
DX: I21.4 Non-ST elevation (NSTEMI) myocardial infarction (principal); I13.0 Hypertensive heart and chronic kidney disease with heart failure and stage 1 through stage 4 chronic kidney disease, or unspecified chronic kidney disease; I50.42 Chronic combined systolic (congestive) and diastolic (congestive) heart failure; N18.4 Chronic kidney disease, stage 4 (severe); I42.8 Other cardiomyopathies; E87.5 Hyperkalemia; E11.22 Type 2 diabetes mellitus with diabetic chronic kidney disease; I25.10 Atherosclerotic heart disease of native coronary artery without angina pectoris; D63.1 Anemia in chronic kidney disease; K21.9 Gastro-esophageal reflux disease without esophagitis; E78.5 Hyperlipidemia, unspecified; Z20.822 Contact with and (suspected) exposure to COVID-19; Z79.4 Long term (current) use of insulin; Z79.82 Long term (current) use of aspirin; Z79.899 Other long term (current) drug therapy
CPT/HCPCS: 0241U; 36415; 71045; 78452; 80048; 80053; 82272; 82947; 83880; 84484; 85014; 85018; 85025; 85027; 85610; 85730; 86850; 86900; 86923; 93005; 93016; 93017; 93018; 93306; 96361; 96365; 96375; 99285; A9500; J0280; J1940; J2785; P9016

== ENCOUNTER 2021-02-25 09:08 | Emergency (ER) | payer MEDICARE, SELFPAY ==
[2021-02-25] VITALS (8 sets, daily range): BP systolic 90–133; BP diastolic 43–67; PULSE 64–78; RESP 12–20; TEMP 36.4–37; O2SAT 94–97; BMI 39.6
--- NOTE | ~2021-02-25 | CT_ITS ---
EXAMINATION: CT ABDOMEN AND PELVIS WITHOUT CONTRAST CLINICAL INFORMATION: Diffuse abdominal pain. COMPARISON: None TECHNIQUE: Multidetector volumetric imaging was performed from the superior aspect of the liver through the pubic symphysis. Sagittal and coronal reformatted images were obtained on the technologist's workstation. This CT examination was performed using dose optimization techniques as appropriate, variously including the following: *Automated exposure control *Adjustment of mA and/or kV according to patient size (this includes techniques or standardized protocols for targeted exams where dose is matched to indication/reason for exam; i.e. extremities or head) *Use of iterative reconstruction technique DLP: 681 mGy-cm FINDINGS: LUNG BASES: There is mild haziness in both lung bases. There is a 4 mm nodule right lower lobe axial image 7/7. Heart size is normal. LIVER, GALLBLADDER, AND BILIARY TREE: The liver is normal in size, shape, and attenuation. There is punctate calcification in the left hepatic lobe. No focal hepatic lesion or biliary ductal dilatation is present. The gallbladder has been surgically removed. PANCREAS: Unremarkable. SPLEEN: There is a punctate calcification in the spleen. ADRENAL GLANDS: Unremarkable. KIDNEYS AND URETERS: The kidneys are normal in size, shape, and attenuation. No hydronephrosis, hydroureter, or calculi seen. There is bilateral perinephric stranding. BLADDER: Unremarkable. GASTROINTESTINAL TRACT: There is scattered stool and gas seen throughout the colon without significant distention. There are postsurgical sutures along the ileal loops in the mid pelvis with a patent lumen. ABDOMINAL WALL: No significant hernia is appreciated. There is soft tissue granulation tissue posterior to the lumbar spine. LYMPH NODES: Small scattered lymph nodes are seen in the para-aortic region. VASCULAR: There is atherosclerotic calcification of the abdominal aorta without aneurysmal dilatation. PELVIC VISCERA: Unremarkable. OSSEOUS STRUCTURES: Unremarkable. CT/CT abdomen pelvis wo con IMPRESSION: No acute intra-abdominal process seen. Mild constipation. Postsurgical sutures lower abdomen with widely patent lumen.
--- NOTE | 2021-02-25 09:18 | ED.ABDPAIN ---
HPI - Abdominal Pain General Chief Complaint: Abdominal Pain Stated Complaint: MULTIPLE COMPLAINTS Time Seen by Provider: 02/25/21 09:15 Source: patient and care team coordinator scheduler Mode of arrival: ambulatory Limitations: no limitations History of Present Illness MD elicited complaint: abdominal pain and other (constipation) Pertinent past history: constipation Onset (ago): day(s) (5) Pain Consistency: constant Location: periumbilical, RUQ and RLQ Severity: moderate Quality: cramping Radiation: none Migration to: no migration Exacerbating factors: movement Relieving factors: nothing Context: history of similar episodes (states after her cholecystectomy 8 years ago she has these issues) Associated symptoms: constipation Related Data Home Medications Medication Instructions Recorded Confirmed aspirin 81 mg tablet,delayed 81 mg PO BEDTIME 12/08/20 12/24/20 release calcium carbonate 500 mg (1,250 1 tab PO BID 12/08/20 12/24/20 mg)-vitamin D3 400 unit tablet citalopram 20 mg tablet 20 mg PO DAILY 12/08/20 12/24/20 gabapentin 100 mg capsule 100 mg PO BID 12/08/20 12/24/20 insulin aspart U-100 100 unit/mL 8 - 24 unit SUBCUT TID 12/08/20 12/24/20 (3 mL) subcutaneous pen insulin detemir U-100 100 unit/mL 64 unit SUBCUT DAILY 12/08/20 12/24/20 (3 mL) subcutaneous pen magnesium oxide 400 mg (241.3 mg 400 mg PO BID 12/08/20 12/24/20 magnesium) tablet rosuvastatin 10 mg tablet 10 mg PO BEDTIME 12/08/20 12/24/20 trazodone 50 mg tablet 50 mg PO BEDTIME 12/08/20 12/24/20 Previous Rx's Medication Instructions Recorded metoclopramide HCl 5 mg tablet 5 mg PO QIDACHS 30 Days #120 tab 10/15/20 omeprazole 40 mg capsule,delayed 40 mg PO BID 30 Days #60 cap 11/05/20 release sucralfate 1 gram tablet 2 g PO DAILY 30 Days #60 tab 11/05/20 furosemide 20 mg tablet 10 mg PO Q OTHER DAY #20 tab 12/08/20 carvedilol 3.125 mg tablet 3.125 mg PO BID #60 tab 02/15/21 hydralazine 10 mg tablet 10 mg PO BID #60 tab 02/15/21 cefuroxime axetil 250 mg PO BID 7 Days #14 tab 02/25/21 Allergies Allergy/AdvReac Type Severity Reaction Status Date / Time latex [LATEX] Allergy Intermediate ITCHY Verified 02/25/21 09:16 Review of Systems Review of Systems Constitutional : No Weight loss, No Fever, No Chills ENT/Mouth : No sore throat, No Rhinorrhea Eyes: No Swelling, No Redness Cardiovascular : No Chest Pain, No SOB, NoEdema Respiratory : No Cough, No Sputum, No Wheezing Gastrointestinal : no Nausea, no Vomiting, no Diarrhea, positive abdominal Pain, No Hematochezia, No Melena, pos constipation Genitourinary : No Dysuria, No Urinary Frequency, No Hematuria, No Urgency Musculoskeletal : No joint pain, No Myalgias, No Joint Swelling Skin : No Skin Lesions, No rash Neuro : No Weakness, No Numbness, No Dizziness, No Headache Psych : No Anxiety/Panic, No Depression Heme/Lymph: No Bruising, No Lymphadenopathy Endocrine : No Polyuria, No Polydipsia All other systems reviewed and are negative. Physical Exam Vital Signs: Vital Signs: Last Vital Signs Temp 97.7 F 02/25/21 16:09 Pulse 64 02/25/21 16:09 Resp 12 02/25/21 16:09 BP 103/51 L 02/25/21 16:09 Pulse Ox 95 02/25/21 16:09 Body Mass Index 39.6 Appearance: Alert. Oriented X3. No acute distress. Eyes: Pupils equal, round and reactive to light. ENT: Pharynx normal. Neck: Normal inspection. Neck supple. CVS: Normal heart rate and rhythm. Pulses normal. Respiratory: No respiratory distress. Breath sounds normal. Abdomen: Soft and obese, mild ttp RUQ/RLQ/periumbilical pain, no discoloration, no rebound or guarding Skin: Skin warm and dry. Normal skin color. Normal skin turgor. Extremities: No lower extremity edema. No calf ttp Neuro: Oriented X 3. No motor deficit. No sensory deficit. Course Course Course Narrative: low BPs, no obvious source of infection at this time, will bolus with 500cc, could be dehydration, at this time infection and severe sepsis not suspected UA finally resulted at this time possible infection suspected given UA - 425pm on 02/25/21 cultures, lactic acid, IV ceftriaxone ordered patient is obese for her height IBW calculated at 100lbs she is 4'10 - 100lbs = 45 kg = 1363 fluid bolus 430pm at this time the patient states she will not stay she understands she has low blood pressure and infection in her urine, she wants to go home, overall she looks better, BP 103/45, alert and oriented x 3, answering questions appropriately but refuses admission, care team coordinator scheduler used. ceftin 250mg BID ordered as outpatient MDM - Abdominal Pain MDM Narrative Medical decision making narrative: 65 yo female with HTN, CHF, nonischemic cardiomyopathy, GERD, NSTEMI, DM, IBS here with diffuse abdominal pain for 5 days and constipation at this time will need labs, CT scan for obstruction, IV morphine for pain, no CP/SOB to suggest ACS - dispo per results and findings. Lab Data Result diagrams: 02/25/21 09:45 02/25/21 09:45 Labs: Lab Results 02/25/21 02/25/21 02/25/21 Range/Units 09:45 09:45 09:46 WBC 10.4 (4.8-10.8) X10*3/uL RBC 3.86 L (4.20-5.50) X10*6/uL Hgb 10.3 L (12.0-16.0) g/dl Hct 31.9 L (37-47) % MCV 82.6 (80-98) fL MCH 26.7 L (27.0-33.0) pg MCHC 32.3 (31.0-35.0) g/dl RDW 13.0 (11.0-16.0) % Plt Count 201 (160-400) X10*3/uL MPV 11.0 (9.4-12.3) fL Immature Gran % (Auto) 0.5 H (0.0-0.4) % Neut % (Auto) 66.8 (45-73) % Lymph % (Auto) 24.8 (20-40) % [place] % (Auto) 5.1 (2-11) % Eos % (Auto) 2.4 (0-4) % Baso % (Auto) 0.4 (0-2) % Lymph # (Auto) 2.6 (1.2-4.9) X10*3/uL [place] # (Auto) 0.5 (0.1-1.2) X10*3/uL Eos # (Auto) 0.3 (0.0-0.4) X10*3/uL Baso # (Auto) 0.0 (0.0-0.2) X10*3/uL Abs Immat Gran (auto) 0.05 H (0.00-0.03) X10*3/uL Absolute Neuts (auto) 7.0 (2.0-8.3) X10*3/uL Absolute Nucleated RBC 0.000 (0.0-0.012) X10*3/uL Nucleated RBC % (auto) 0.0 (0.0-0.2) /100WBC Hold Blue Top SEE NOTE Sodium 138 (135-145) mmol/L Potassium 5.1 (3.3-5.1) mmol/L Chloride 110 H (96-108) mmol/L Carbon Dioxide 17 L (22-29) mmol/L Anion Gap 16 (12-20) BUN 42 H (9-16) mg/dL Creatinine 2.97 H (0.5-1.4) mg/dL Estim Creat Clear Calc 17.1 Estimated GFR 16 Random Glucose 200 H (60-115) mg/dL Calcium 8.6 D (8.4-10.2) mg/dL Magnesium 1.3 L* (1.6-2.6) mg/dL Total Bilirubin 0.2 (0.0-1.0) mg/dL Direct Bilirubin < 0.2 (0.0-0.5) mg/dL AST 19 (5-31) U/L ALT 13 (0-31) U/L Alkaline Phosphatase 125 H (39-117) U/L Total Protein 7.0 (6.5-8.0) g/dL Albumin 3.5 (3.5-5.0) g/dL Lipase 38 (8-78) U/L Urine Color Urine Appearance Urine pH (5.0-8.0) Ur Specific [place] (1.005-1.025) Urine Protein (NEG-TRACE) MG/DL Urine Glucose (UA) (NEG) MG/DL Urine Ketones (NEG) MG/DL Urine Blood (NEG) Urine Nitrite (NEG) Ur Leukocyte Esterase (NEG) Urine RBC (0) /HPF Urine WBC (0-4) /HPF Ur Squamous Epith Cells /LPF Ur Renal Epithelial Cell /LPF Amorphous Sediment /LPF Urine Bacteria /LPF Hyaline Casts /LPF Urine Mucus /LPF 02/25/21 Range/Units 15:52 WBC (4.8-10.8) X10*3/uL RBC (4.20-5.50) X10*6/uL Hgb (12.0-16.0) g/dl Hct (37-47) % MCV (80-98) fL MCH (27.0-33.0) pg MCHC (31.0-35.0) g/dl RDW (11.0-16.0) % Plt Count (160-400) X10*3/uL MPV (9.4-12.3) fL Immature Gran % (Auto) (0.0-0.4) % Neut % (Auto) (45-73) % Lymph % (Auto) (20-40) % [place] % (Auto) (2-11) % Eos % (Auto) (0-4) % Baso % (Auto) (0-2) % Lymph # (Auto) (1.2-4.9) X10*3/uL [place] # (Auto) (0.1-1.2) X10*3/uL Eos # (Auto) (0.0-0.4) X10*3/uL Baso # (Auto) (0.0-0.2) X10*3/uL Abs Immat Gran (auto) (0.00-0.03) X10*3/uL Absolute Neuts (auto) (2.0-8.3) X10*3/uL Absolute Nucleated RBC (0.0-0.012) X10*3/uL Nucleated RBC % (auto) (0.0-0.2) /100WBC Hold Blue Top Sodium (135-145) mmol/L Potassium (3.3-5.1) mmol/L Chloride (96-108) mmol/L Carbon Dioxide (22-29) mmol/L Anion Gap (12-20) BUN (9-16) mg/dL Creatinine (0.5-1.4) mg/dL Estim Creat Clear Calc Estimated GFR Random Glucose (60-115) mg/dL Calcium (8.4-10.2) mg/dL Magnesium (1.6-2.6) mg/dL Total Bilirubin (0.0-1.0) mg/dL Direct Bilirubin (0.0-0.5) mg/dL AST (5-31) U/L ALT (0-31) U/L Alkaline Phosphatase (39-117) U/L Total Protein (6.5-8.0) g/dL Albumin (3.5-5.0) g/dL Lipase (8-78) U/L Urine Color YELLOW Urine Appearance CLEAR Urine pH 5.5 (5.0-8.0) Ur Specific [place] 1.025 (1.005-1.025) Urine Protein 3+ H (NEG-TRACE) MG/DL Urine Glucose (UA) NEG (NEG) MG/DL Urine Ketones NEG (NEG) MG/DL Urine Blood NEG (NEG) Urine Nitrite NEG (NEG) Ur Leukocyte Esterase 1+ H (NEG) Urine RBC 0 (0) /HPF Urine WBC 10-14 H (0-4) /HPF Ur Squamous Epith Cells 1+ /LPF Ur Renal Epithelial Cell 1+ /LPF Amorphous Sediment TRACE /LPF Urine Bacteria 3+ /LPF Hyaline Casts 1-4 /LPF Urine Mucus 1+ /LPF ECG Data Attestation: I personally reviewed and interpreted this ECG as follows: ECG interpretation date: 02/25/21 ECG interpretation time: 09:57 Interpretation: Rate: 74 Rhythm: NSR [place]: left Normal P waves. Normal DONNIE. LBBB, LVH ST T wave : inverted I and aVL, V4-V6, II and aVF qTC: normal prior studies: no changes, no acute ischemia The study has been interpreted contemporaneously by me. . Discharge Plan Discharge Clinical Impression: Abdominal pain, CKD (chronic kidney disease), Hypomagnesemia, Acute UTI Patient Disposition: Home, Self-Care Instructions: Dehydration (ED), Urinary Tract Infection in Women (ED) Additional Instructions: return to ED for any worsening symptoms or concerns YOU WERE OFFERED ADMISSION BUT REFUSED DO NOT TAKE CARVEDILOL, HYDRALAZINE, LASIX TODAY OR TOMORROW Prescriptions: New cefuroxime axetil 250 mg tablet 250 mg PO BID 7 Days Qty: 14 RF: 0 No Action metoclopramide HCl 5 mg tablet 5 mg PO QIDACHS 30 Days Qty: 120 RF: 2 hydralazine 10 mg tablet 10 mg PO BID Qty: 60 RF: 5 carvedilol 3.125 mg tablet 3.125 mg PO BID Qty: 60 RF: 5 omeprazole 40 mg capsule,delayed release(DR/EC) 40 mg PO BID 30 Days Qty: 60 RF: 6 sucralfate [Carafate] 1 gram tablet 2 g PO DAILY 30 Days Qty: 60 RF: 6 insulin aspart U-100 100 unit/mL (3 mL) insulin pen 8 - 24 unit subcut TID RF: 0 gabapentin 100 mg capsule 100 mg PO BID RF: 0 rosuvastatin 10 mg tablet 10 mg PO BEDTIME RF: 0 magnesium oxide 400 mg (241.3 mg magnesium) tablet 400 mg PO BID RF: 0 aspirin 81 mg tablet,delayed release (DR/EC) 81 mg PO BEDTIME RF: 0 trazodone 50 mg tablet 50 mg PO BEDTIME RF: 0 citalopram 20 mg tablet 20 mg PO DAILY RF: 0 calcium carbonate-vitamin D3 500 mg(1,250mg) -400 unit tablet 1 tab PO BID RF: 0 insulin detemir U-100 100 unit/mL (3 mL) insulin pen 64 unit subcut DAILY RF: 0 furosemide [Lasix] 20 mg tablet 10 mg PO Q OTHER DAY Qty: 20 RF: 2 Referrals: Alexsy Avila MD [Primary Care Provider] - 2 days [facility] Past Medical History Attestation statement: The following information was validated with the patient. Medical History Anemia Cholecystectomy planned CKD (chronic kidney disease) Congestive heart failure Diabetes mellitus Essential hypertension GERD (gastroesophageal reflux disease) Hernia HLD (hyperlipidemia) HTN (hypertension) Nonischemic cardiomyopathy Other and unspecified hyperlipidemia Type 2 diabetes mellitus with unspecified complications Surgical History H/O: hysterectomy History of esophagogastroduodenoscopy (EGD) Hx of colonoscopy Hx of eye surgery Family History Family History Father Lung cancer Mother Diabetes HTN (hypertension) Heart disease Sister Diabetes Heart disease Brother Heart disease Son Diabetes Daughter Diabetes Social History Social History Household Members: Family Housing: Apartment Do you presently have visiting nurse or other home services: Yes Alcohol intake: never Patient Tobacco Use Status: Never used Tobacco Any prior treatment program specific to substance use: No Advance Directives: No Advance Directives Information Provided: No service: No Current occupational status: disabled
--- NOTE | 2021-02-25 09:22 | ECG_ITS ---
Test Reason : ABDOMINAL PAIN Blood Pressure : / mmHG Vent. Rate : 074 BPM Atrial Rate : 074 BPM P-R Int : 150 ms QRS Dur : 112 ms QT Int : 442 ms P-R-T Axes : 043 -06 187 degrees QTc Int : 490 ms Normal sinus rhythm Incomplete left bundle branch block Left ventricular hypertrophy with repolarization abnormality Prolonged QT Abnormal ECG When compared with ECG of 24-DEC-2020 14:45, No significant change was found Referred By: Swati Donis Electronically Signed By:MYESHA FREY
[2021-02-25 09:50] LABS: MANUAL DIFF FLAG NO
[2021-02-25 09:52] LABS: Basophils Percent Auto 0.4 % (0-2); Eosinophils Absolute Auto 0.3 X10*3/uL (0.0-0.4); Eosinophils Percent Auto 2.4 % (0-4); Hematocrit 31.9 % (37-47); Hemoglobin 10.3 g/dl (12.0-16.0); Imm Gran Abs Auto 0.05 X10*3/uL (0.00-0.03); Imm Gran Pct Auto 0.5 % (0.0-0.4); Lymphocytes Absolute Auto 2.6 X10*3/uL (1.2-4.9); Lymphocytes Percent Auto 24.8 % (20-40); Mean Corpuscular HGB Conc 32.3 g/dl (31.0-35.0); Mean Corpuscular Hemoglobin 26.7 pg (27.0-33.0); Mean Corpuscular Volume 82.6 fL (80-98); Monocytes Absolute Auto 0.5 X10*3/uL (0.1-1.2); Monocytes Percent Auto 5.1 % (2-11); Neutrophils Percent Auto 66.8 % (45-73); Platelet Count 201 X10*3/uL (160-400); Red Blood Count 3.86 X10*6/uL (4.20-5.50); White Blood Count 10.4 X10*3/uL (4.8-10.8)
[2021-02-25 10:34] LABS: Alanine Aminotransferase 13 U/L (0-31); Albumin Level 3.5 g/dL (3.5-5.0); Alkaline Phosphatase 125 U/L (39-117); Anion Gap 16 (12-20); Aspartate Amino Transferase 19 U/L (5-31); Bilirubin Direct < 0.2 mg/dL (0.0-0.5); Bilirubin Total 0.2 mg/dL (0.0-1.0); Blood Urea Nitrogen 42 mg/dL (9-16); Calcium 8.6 mg/dL (8.4-10.2); Carbon Dioxide 17 mmol/L (22-29); Chloride 110 mmol/L (96-108); Creatinine Clr Calc Pharmacy 17.1; Estimated Glomerular Filt Rate 16; Glucose Random 200 mg/dL (60-115); Lipase 38 U/L (8-78); Magnesium 1.3 mg/dL (1.6-2.6); Potassium 5.1 mmol/L (3.3-5.1); Sodium 138 mmol/L (135-145)
[2021-02-25] MEDS: Magnesium Sulfate/H2O 2 GM/50 ML PIGGYBACK IV (10:41)
[2021-02-25] MEDS: Morphine Sulfate 4 MG/ML CARTRIDGE IVPUSH (10:44)
[2021-02-25] MEDS: ondansetron HCL 4 MG/2 ML VIAL IVPUSH (10:45)
--- NOTE | 2021-02-25 10:45 | PC.NURSE ---
morphine and zofran given, viles discarded in preparaton. pt is laying supine on stretcher. no obvious distress noted. will continue to monitor.
--- NOTE | 2021-02-25 10:53 | PC.NURSE ---
Pt reports pain decrease with morphine, vss. pt resting quietly at this time.
[2021-02-25] MEDS: 0.9 % Sodium Chloride 500 ML IV (13:50)
[2021-02-25 16:01] LABS: Glucose Urine UA NEG (NEG); Leukocyte Esterase Urine 1+ (NEG); Nitrite Urine NEG (NEG); PH 5.5 (5.0-8.0); Specific Gravity - Urine 1.025 (1.005-1.025); UACC Culture Trigger YES; Urine Blood NEG (NEG); Urine Ketones NEG (NEG); Urine Protein 3+ MG/DL (NEG-TRACE)
[2021-02-25 16:02] LABS: Appearance Urine CLEAR; Color Urine YELLOW
[2021-02-25 16:13] LABS: Bacteria Urine 3+ /LPF; RBC Urine 0 /HPF (0); Squamous Epithelial Cell Urine 1+ /LPF
[2021-02-25 16:14] LABS: Amorphous Sediment Urine TRACE /LPF; Mucus Urine 1+ /LPF; Renal Epithelial Cells Urine 1+ /LPF
[2021-02-25] MEDS: cefTRIAXone sodium 1 GM in 0.9 % Sodium Chloride 50 ML IV (17:14)
[2021-02-25 17:18] LABS: Lactic Acid 1.4 mmol/L (0.5-2.0)
--- NOTE | 2021-02-25 17:26 | PC.NURSE ---
Urine obtained via straight cath, pt receiving antibiotic for UTI, Pt refuse to stay for admission. BP improved.
== END 2021-02-25 18:29 | disposition home or self-care (01) ==
PROVIDERS: Emergency Provider Emergency Medicine; PCP Internal Medicine
DX: N39.0 Urinary tract infection, site not specified (principal); R10.11 Right upper quadrant pain; R10.31 Right lower quadrant pain; N18.9 Chronic kidney disease, unspecified; Z79.899 Other long term (current) drug therapy
CPT/HCPCS: 36415; 74176; 80048; 80076; 81001; 81003; 83605; 83690; 83735; 85025; 87040; 87086; 87088; 87186; 93005; 96361; 96365; 96375; 99285; J0696; J2270; J2405; J3475

== ENCOUNTER 2021-03-15 09:10 | Emergency (ER) | payer MEDICARE, SELFPAY ==
--- NOTE | ~2021-03-15 | XR_ITS ---
EXAMINATION: XR FINGER, RIGHT CLINICAL INFORMATION: Discoloration soft tissues distal third finger. Prior history infection. COMPARISON: Radiographs right third finger 05/24/2018. TECHNIQUE: AP view right hand and 2 views right third finger are obtained for a total of 3 views. FINDINGS: There is soft tissue swelling distal third finger. The underlying bone shows no acute healing fracture, dislocation, or visible destructive process. There is no periostitis or definite loss of cortical white line. There is no gas tracking proximally and soft tissues. The remainder of the hand again shows prior amputation index finger distal phalanx and variable degenerative changes PIP and DIP joints. There is calcification of the vasculature consistent with atherosclerotic changes. XR/XR finger RT min 2V IMPRESSION: Soft tissue swelling distal third finger. No visible fracture or destructive process or periostitis.
[2021-03-15 10:07] VITALS: BP 151/69; PULSE 75; RESP 17; TEMP 36.6; O2SAT 97; BMI 38.2
--- NOTE | 2021-03-15 10:19 | ED_ITS ---
HPI - Extremity Problem General Chief complaint: Extremity Injury, Upper Stated complaint: finger infection Time Seen by Provider: 03/15/21 10:01 Source: patient History of Present Illness HPI Narrative: 66-year-old female with a past medical history of anemia, CKD, CHF, DM, HTN, GERD, HLD, presenting to the ED complaining of right 3rd digit discoloration x2 days and 1st digit pain. Admits to similar symptoms in the past with gangrene. Denies fever, chills, CP/SOB, abdominal pain, nausea/vomiting Related Data Home Medications Medication Instructions Recorded Confirmed aspirin 81 mg tablet,delayed 81 mg PO BEDTIME 12/08/20 12/24/20 release calcium carbonate 500 mg (1,250 1 tab PO BID 12/08/20 12/24/20 mg)-vitamin D3 400 unit tablet citalopram 20 mg tablet 20 mg PO DAILY 12/08/20 12/24/20 gabapentin 100 mg capsule 100 mg PO BID 12/08/20 12/24/20 insulin aspart U-100 100 unit/mL 8 - 24 unit SUBCUT TID 12/08/20 12/24/20 (3 mL) subcutaneous pen insulin detemir U-100 100 unit/mL 64 unit SUBCUT DAILY 12/08/20 12/24/20 (3 mL) subcutaneous pen magnesium oxide 400 mg (241.3 mg 400 mg PO BID 12/08/20 12/24/20 magnesium) tablet rosuvastatin 10 mg tablet 10 mg PO BEDTIME 12/08/20 12/24/20 trazodone 50 mg tablet 50 mg PO BEDTIME 12/08/20 12/24/20 Previous Rx's Medication Instructions Recorded metoclopramide HCl 5 mg tablet 5 mg PO QIDACHS 30 Days #120 tab 10/15/20 omeprazole 40 mg capsule,delayed 40 mg PO BID 30 Days #60 cap 11/05/20 release sucralfate 1 gram tablet 2 g PO DAILY 30 Days #60 tab 11/05/20 furosemide 20 mg tablet 10 mg PO Q OTHER DAY #20 tab 12/08/20 carvedilol 3.125 mg tablet 3.125 mg PO BID #60 tab 02/15/21 hydralazine 10 mg tablet 10 mg PO BID #60 tab 02/15/21 cefuroxime axetil 250 mg PO BID 7 Days #14 tab 02/25/21 cephalexin 500 mg PO QID 7 Days #28 cap 03/15/21 doxycycline hyclate 100 mg PO BID 7 Days #14 cap 03/15/21 Allergies Allergy/AdvReac Type Severity Reaction Status Date / Time latex [LATEX] Allergy Intermediate ITCHY Verified 02/25/21 09:16 Review of Systems Review of Systems: Constitutional: No Weight loss, No Fever, No Chills, No Fa tigue, No Malaise ENT/Mouth: No Hearing loss, No Ear Pain, No Rhinorrhea Cardiovascular: No Chest Pain, No SOB Respiratory: No Cough, No Dyspnea Gastrointestinal: No Nausea, No Vomiting, No Abdominal pain Musculoskeletal: No joint pain, No Myalgias Skin: + Skin Lesions, No rash Neuro: No Weakness, No Numbness, No Paresthesias Yes all other systems are reviewed and are negative FOR[facility], [facility] Past Medical History Attestation statement: The following information was validated with the patient. Medical History (Updated 03/15/21 @ 16:36 by JOSE Talavera) Anemia Cholecystectomy planned CKD (chronic kidney disease) Congestive heart failure Diabetes Diabetes mellitus Essential hypertension GERD (gastroesophageal reflux disease) Hernia HLD (hyperlipidemia) HTN (hypertension) Nonischemic cardiomyopathy Other and unspecified hyperlipidemia Type 2 diabetes mellitus with unspecified complications Surgical History H/O: hysterectomy History of esophagogastroduodenoscopy (EGD) Hx of colonoscopy Hx of eye surgery Family History Family History Father Lung cancer Mother Diabetes HTN (hypertension) Heart disease Sister Diabetes Heart disease Brother Heart disease Son Diabetes Daughter Diabetes Social History Social History Household Members: Family Housing: Apartment Do you presently have visiting nurse or other home services: Yes Alcohol intake: never Patient Tobacco Use Status: Never used Tobacco service: No Current occupational status: disabled Physical Exam Vital Signs: Vital Signs: Last Vital Signs Temp 98.4 F 03/15/21 16:00 Pulse 75 03/15/21 16:53 Resp 16 03/15/21 16:00 BP 109/83 03/15/21 16:00 Pulse Ox 96 03/15/21 16:00 Body Mass Index 38.2 Const: General: cooperative, healthy appearing, comfortable and no acute distress Orientation/consciousness: patient oriented x3 Limitations: no limitations HENMT: Head: Yes normal to inspection Ears: hearing grossly normal bilaterally General nose exam: Normal external nose present Face and sinus: Yes normal facial exam Eyes: General: appearance normal, both eyes and all related structures EOM: EOMs intact bilaterally Neck: Neck: Yes normal visual inspection and Yes no meningeal signs Resp: Effort & Inspection: normal respiratory effort Cardio: Rate: regular rate Peripheral pulses: brachial pulses present GI: Inspection: Yes normal to inspection Skin: Wounds: no wounds Neuro: General: patient oriented x3, tone normal and no meningeal signs Gait exam (Neuro): Normal gait present Extrem: Other: Refer to images above General: Yes normal to inspection Course Course Course Narrative: -no leukocytosis, H&H at baseline, potassium elevated at 6.3 >> will obtain EKG, Calcium gluconate, Kayexalate, insulin and dextrose ordered -BUN/creatinine at patient's baseline XR finger RT min 2V IMPRESSION: Soft tissue swelling distal third finger. No visible fracture or destructive process or periostitis -1340--Hand surgeon Dr. Panchal stated they will make an appointment for patient in their outpatient clinic tomorrow, recommended DC with antibiotics. Will repeat potassium prior to discharge -1619--repeat potassium 5.7 >>EKG without changes. Will give patient additional 30 mg of Kayexalate and albuterol treatment prior to discharge. Patient is supplied with outpatient lab slip for repeat potassium tomorrow, importance of this was discussed with patient with bottom liquor attendant, she verbalized understanding. MDM - Extremity (Nontraumatic) MDM Narrative Medical decision making narrative: 66-year-old female with a past medical history of anemia, CKD, CHF, DM, HTN, GERD, HLD, presenting to the ED complaining of right 3rd digit discoloration x2 days and 1st digit pain. On exam VSS, NAD, physical exam as above , refer to images. Concern for necrotic / gangrenous digit vs osteomyelitis. Low concern for severe sepsis at this time. Plan: Labs, lactate, blood cultures, IV Vancomycin/Zosyn, x-ray, surgical consult Lab Data Result diagrams: 03/15/21 10:36 03/15/21 15:10 Labs: Lab Results 03/15/21 03/15/21 03/15/21 Range/Units 10:36 10:36 10:36 WBC 10.1 (4.8-10.8) X10*3/uL RBC 3.82 L (4.20-5.50) X10*6/uL Hgb 10.1 L (12.0-16.0) g/dl Hct 31.5 L (37-47) % MCV 82.5 (80-98) fL MCH 26.4 L (27.0-33.0) pg MCHC 32.1 (31.0-35.0) g/dl RDW 12.9 (11.0-16.0) % Plt Count 203 (160-400) X10*3/uL MPV 10.6 (9.4-12.3) fL Immature Gran % (Auto) 0.5 H (0.0-0.4) % Neut % (Auto) 69.2 (45-73) % Lymph % (Auto) 20.0 (20-40) % [place] % (Auto) 7.9 (2-11) % Eos % (Auto) 2.2 (0-4) % Baso % (Auto) 0.2 (0-2) % Lymph # (Auto) 2.0 (1.2-4.9) X10*3/uL [place] # (Auto) 0.8 (0.1-1.2) X10*3/uL Eos # (Auto) 0.2 (0.0-0.4) X10*3/uL Baso # (Auto) 0.0 (0.0-0.2) X10*3/uL Abs Immat Gran (auto) 0.05 H (0.00-0.03) X10*3/uL Absolute Neuts (auto) 7.0 (2.0-8.3) X10*3/uL Absolute Nucleated RBC 0.000 (0.0-0.012) X10*3/uL Nucleated RBC % (auto) 0.0 (0.0-0.2) /100WBC PT 12.6 (10.8-13.0) SEC INR 1.1 (0.9-1.1) APTT 31.8 (24.1-38.0) SEC Sodium (135-145) mmol/L Potassium (3.3-5.1) mmol/L Chloride (96-108) mmol/L Carbon Dioxide (22-29) mmol/L Anion Gap (12-20) BUN (9-16) mg/dL Creatinine (0.5-1.4) mg/dL Estim Creat Clear Calc Estimated GFR POC Glucose (60-115) mg/dL Random Glucose (60-115) mg/dL Lactic Acid 1.5 (0.5-2.0) mmol/L Calcium (8.4-10.2) mg/dL Magnesium (1.6-2.6) mg/dL Total Bilirubin (0.0-1.0) mg/dL Direct Bilirubin (0.0-0.5) mg/dL AST (5-31) U/L ALT (0-31) U/L Alkaline Phosphatase (39-117) U/L Total Protein (6.5-8.0) g/dL Albumin (3.5-5.0) g/dL 03/15/21 03/15/21 03/15/21 Range/Units 10:36 13:06 15:10 WBC (4.8-10.8) X10*3/uL RBC (4.20-5.50) X10*6/uL Hgb (12.0-16.0) g/dl Hct (37-47) % MCV (80-98) fL MCH (27.0-33.0) pg MCHC (31.0-35.0) g/dl RDW (11.0-16.0) % Plt Count (160-400) X10*3/uL MPV (9.4-12.3) fL Immature Gran % (Auto) (0.0-0.4) % Neut % (Auto) (45-73) % Lymph % (Auto) (20-40) % [place] % (Auto) (2-11) % Eos % (Auto) (0-4) % Baso % (Auto) (0-2) % Lymph # (Auto) (1.2-4.9) X10*3/uL [place] # (Auto) (0.1-1.2) X10*3/uL Eos # (Auto) (0.0-0.4) X10*3/uL Baso # (Auto) (0.0-0.2) X10*3/uL Abs Immat Gran (auto) (0.00-0.03) X10*3/uL Absolute Neuts (auto) (2.0-8.3) X10*3/uL Absolute Nucleated RBC (0.0-0.012) X10*3/uL Nucleated RBC % (auto) (0.0-0.2) /100WBC PT (10.8-13.0) SEC INR (0.9-1.1) APTT (24.1-38.0) SEC Sodium 138 140 (135-145) mmol/L Potassium 6.3 H* D 5.7 H (3.3-5.1) mmol/L Chloride 110 H 112 H (96-108) mmol/L Carbon Dioxide 21 L 18 L (22-29) mmol/L Anion Gap 13 16 (12-20) BUN 42 H 41 H (9-16) mg/dL Creatinine 2.83 H 2.83 H (0.5-1.4) mg/dL Estim Creat Clear Calc 17.3 17.3 Estimated GFR 17 17 POC Glucose 190 H (60-115) mg/dL Random Glucose 224 H 220 H (60-115) mg/dL Lactic Acid (0.5-2.0) mmol/L Calcium 8.6 8.7 (8.4-10.2) mg/dL Magnesium 1.5 L (1.6-2.6) mg/dL Total Bilirubin 0.3 (0.0-1.0) mg/dL Direct Bilirubin < 0.2 (0.0-0.5) mg/dL AST 20 (5-31) U/L ALT 16 (0-31) U/L Alkaline Phosphatase 131 H (39-117) U/L Total Protein 6.8 (6.5-8.0) g/dL Albumin 3.5 (3.5-5.0) g/dL ECG Data Attestation EKG: I personally reviewed and interpreted this ECG as follows: ECG interpretation date: 03/15/21 ECG interpretation time: 12:03 Prior ECG tracings: available for review Interpretation: EKG normal sinus rhythm with a rate of 74. ST depression and T- wave inversions in leads 1, 2, aVL, V4 through V6, unchanged from prior EKGs Discharge Plan Discharge Clinical Impression: Finger necrosis, Acute hyperkalemia Patient Disposition: Home, Self-Care Instructions: Hyperkalemia (ED), Gangrene (DC) Additional Instructions: you need to follow-up in the outpatient orthopedic clinic tomorrow. The they will call you with your appointment. Doxycycline and Keflex for antibiotics, take as prescribed. Your potassium was very elevated today in the emergency department, you need to have your levels recheck tomorrow. if you develop any chest pain, lightheadedness/ dizziness, numbness or tingling please return to the ED immediately. If her finger becomes red, more swollen or painful, or you have fevers return to the ED sooner necesita hacer un seguimiento en la cl?carlita ortop?dica para pacientes ambulatorios ma?jn. Luego te llamar?n con tu tyrell. Doxiciclina y Keflex para antibi?ticos, t?melos seg?n lo prescrito. Hu potasio estaba muy elevado hoy en el departamento de emergencias, necesita que baltazar niveles se vuelvan a controlar ma?nj. Si presenta dolor en el pecho, aturdimiento / mareo, entumecimiento u h ormigueo, regrese al servicio de urgencias de inmediato. Si hu dedo se enrojece, se hincha o le duele m?s, o si tiene fiebre, regrese antes al servicio de urgencias. Prescriptions: New cephalexin 500 mg capsule 500 mg PO QID 7 Days Qty: 28 RF: 0 doxycycline hyclate 100 mg capsule 100 mg PO BID 7 Days Qty: 14 RF: 0 No Action metoclopramide HCl 5 mg tablet 5 mg PO QIDACHS 30 Days Qty: 120 RF: 2 hydralazine 10 mg tablet 10 mg PO BID Qty: 60 RF: 5 carvedilol 3.125 mg tablet 3.125 mg PO BID Qty: 60 RF: 5 cefuroxime axetil 250 mg tablet 250 mg PO BID 7 Days Qty: 14 RF: 0 omeprazole 40 mg capsule,delayed release(DR/EC) 40 mg PO BID 30 Days Qty: 60 RF: 6 sucralfate [Carafate] 1 gram tablet 2 g PO DAILY 30 Days Qty: 60 RF: 6 insulin aspart U-100 100 unit/mL (3 mL) insulin pen 8 - 24 unit subcut TID RF: 0 gabapentin 100 mg capsule 100 mg PO BID RF: 0 rosuvastatin 10 mg tablet 10 mg PO BEDTIME RF: 0 magnesium oxide 400 mg (241.3 mg magnesium) tablet 400 mg PO BID RF: 0 aspirin 81 mg tablet,delayed release (DR/EC) 81 mg PO BEDTIME RF: 0 trazodone 50 mg tablet 50 mg PO BEDTIME RF: 0 citalopram 20 mg tablet 20 mg PO DAILY RF: 0 calcium carbonate-vitamin D3 500 mg(1,250mg) -400 unit tablet 1 tab PO BID RF: 0 insulin detemir U-100 100 unit/mL (3 mL) insulin pen 64 unit subcut DAILY RF: 0 furosemide [Lasix] 20 mg tablet 10 mg PO Q OTHER DAY Qty: 20 RF: 2 Referrals: Alexys Avila MD [Primary Care Provider] - 1 day Toya Panchal MD [Physician] - 1 day Print Language: Serbian
[2021-03-15 10:40] LABS: MANUAL DIFF FLAG NO
[2021-03-15 10:41] LABS: Basophils Percent Auto 0.2 % (0-2); Eosinophils Absolute Auto 0.2 X10*3/uL (0.0-0.4); Eosinophils Percent Auto 2.2 % (0-4); Hematocrit 31.5 % (37-47); Hemoglobin 10.1 g/dl (12.0-16.0); Imm Gran Abs Auto 0.05 X10*3/uL (0.00-0.03); Imm Gran Pct Auto 0.5 % (0.0-0.4); Mean Corpuscular HGB Conc 32.1 g/dl (31.0-35.0); Mean Corpuscular Hemoglobin 26.4 pg (27.0-33.0); Mean Corpuscular Volume 82.5 fL (80-98); Mean Platelet Volume 10.6 fL (9.4-12.3); Monocytes Absolute Auto 0.8 X10*3/uL (0.1-1.2); Monocytes Percent Auto 7.9 % (2-11); Neutrophils Percent Auto 69.2 % (45-73); Platelet Count 203 X10*3/uL (160-400); Red Blood Count 3.82 X10*6/uL (4.20-5.50); Red Cell Distribution Width 12.9 % (11.0-16.0); White Blood Count 10.1 X10*3/uL (4.8-10.8)
[2021-03-15 10:47] LABS: INTERNATIONAL NORM RATIO 1.1 (0.9-1.1); Prothrombin Time 12.6 SEC (10.8-13.0)
[2021-03-15 10:49] LABS: Partial Thromboplastin Time 31.8 SEC (24.1-38.0)
[2021-03-15] MEDS: Piperacillin Sodium/Tazobactam 2.25 GM in 0.9 % Sodium Chloride 50 ML IV (10:57)
[2021-03-15 11:07] LABS: Lactic Acid 1.5 mmol/L (0.5-2.0)
[2021-03-15 11:15] LABS: Alanine Aminotransferase 16 U/L (0-31); Albumin Level 3.5 g/dL (3.5-5.0); Alkaline Phosphatase 131 U/L (39-117); Aspartate Amino Transferase 20 U/L (5-31); Bilirubin Direct < 0.2 mg/dL (0.0-0.5); Bilirubin Total 0.3 mg/dL (0.0-1.0); Blood Urea Nitrogen 42 mg/dL (9-16); Calcium 8.6 mg/dL (8.4-10.2); Creatinine Clr Calc Pharmacy 17.3; Estimated Glomerular Filt Rate 17; Glucose Random 224 mg/dL (60-115); Magnesium 1.5 mg/dL (1.6-2.6); Total Protein 6.8 g/dL (6.5-8.0)
[2021-03-15 11:28] LABS: Anion Gap 13 (12-20); Carbon Dioxide 21 mmol/L (22-29); Chloride 110 mmol/L (96-108); Potassium 6.3 mmol/L (3.3-5.1); Sodium 138 mmol/L (135-145)
--- NOTE | 2021-03-15 11:29 | ECG_ITS ---
Test Reason : HIGH POTASSIUM Blood Pressure : / mmHG Vent. Rate : 074 BPM Atrial Rate : 074 BPM P-R Int : 158 ms QRS Dur : 124 ms QT Int : 460 ms P-R-T Axes : 049 -17 191 degrees QTc Int : 510 ms Normal sinus rhythm Left ventricular hypertrophy with QRS widening ST & T wave abnormality, consider inferior ischemia ST & T wave abnormality, consider anterolateral ischemia Changes could be from LVH Abnormal ECG When compared with ECG of 25-FEB-2021 09:54, No significant change was found Referred By: Rhianna Spence Electronically Signed By:MYESHA FREY
[2021-03-15] MEDS: vancomycin HCL 1,000 MG in 0.9 % Sodium Chloride 250 ML 270 MG IV (11:44)
[2021-03-15] MEDS: Sodium Polystyrene Sulfon/Sorb 15 GM/60 ML ORAL.SUSP 30 GM PO ×2 (12:14→17:00)
[2021-03-15] MEDS: Calcium Gluconate/NaCl,Iso-Osm 1 GM/50 ML PLAST..BAG IV (12:18)
[2021-03-15] MEDS: Insulin Regular, Human 100 UNIT/ML 3 ML VIAL 10 UNIT SUBCUT (12:18)
--- NOTE | 2021-03-15 12:22 | PC.NURSE ---
Insulin, D10, calcium gluconate, and kayexcelate given for hyperkalemia. EKG obtained as well. Pt on gambling monitor. She is resting comfortably in bed at this time.
[2021-03-15 13:09] LABS: Glucose, Whole Blood 190 mg/dL (60-115)
[2021-03-15 13:13] VITALS: BP 165/72; PULSE 73; RESP 14; TEMP 36.7; O2SAT 96
[2021-03-15 15:11] VITALS: BP 143/56; PULSE 71; RESP 15; TEMP 37; O2SAT 100
[2021-03-15 15:36] LABS: Anion Gap 16 (12-20); Blood Urea Nitrogen 41 mg/dL (9-16); Calcium 8.7 mg/dL (8.4-10.2); Carbon Dioxide 18 mmol/L (22-29); Chloride 112 mmol/L (96-108); Creatinine Clr Calc Pharmacy 17.3; Estimated Glomerular Filt Rate 17; Glucose Random 220 mg/dL (60-115); Potassium 5.7 mmol/L (3.3-5.1); Sodium 140 mmol/L (135-145)
[2021-03-15 16:00] VITALS: BP 109/83; PULSE 70; RESP 16; TEMP 36.9; O2SAT 96
--- NOTE | 2021-03-15 16:09 | PC.NURSE ---
PATIENT WAS ASSISTED ON AND OFF BED HUGHES ,PATIENT HAD LARGE LOOSE BOWEL MOVEMENT .
[2021-03-15] MEDS: Albuterol Sulfate (0.083%) 2.5 MG/3 ML VIAL.NEB 5 MG INHALE (16:51)
[2021-03-15 16:53] VITALS: PULSE 75; O2SAT 94
--- NOTE | 2021-03-15 17:03 | PC.NURSE ---
David re-assessed. Pt getting albuterol updraft and second dose of kayelcelate. Plan for additional meds through home pharmacy and to follow-up with surgeon tomorrow.
== END 2021-03-15 17:40 | disposition home or self-care (01) ==
PROVIDERS: Physician Assistant; Emergency Provider Emergency Medicine Emergency Medical Services; PCP Internal Medicine
DX: E11.52 Type 2 diabetes mellitus with diabetic peripheral angiopathy with gangrene (principal); I96 Gangrene, not elsewhere classified; E87.5 Hyperkalemia; E11.22 Type 2 diabetes mellitus with diabetic chronic kidney disease; I13.0 Hypertensive heart and chronic kidney disease with heart failure and stage 1 through stage 4 chronic kidney disease, or unspecified chronic kidney disease; N18.9 Chronic kidney disease, unspecified; I50.9 Heart failure, unspecified; E78.5 Hyperlipidemia, unspecified; Z79.82 Long term (current) use of aspirin; Z79.4 Long term (current) use of insulin; Z79.02 Long term (current) use of antithrombotics/antiplatelets; Z79.899 Other long term (current) drug therapy
CPT/HCPCS: 36415; 73140; 80048; 80076; 82947; 83605; 83735; 85025; 85610; 85730; 87040; 93005; 94640; 96365; 96366; 96368; 99284; J0610; J2543; J3370

== ENCOUNTER 2021-03-16 07:23 | Outpatient (REF) | payer MEDICARE, SELFPAY ==
[2021-03-16 10:06] LABS: Anion Gap 13 (12-20); Blood Urea Nitrogen 38 mg/dL (9-16); Calcium 8.3 mg/dL (8.4-10.2); Carbon Dioxide 20 mmol/L (22-29); Chloride 111 mmol/L (96-108); Estimated Glomerular Filt Rate 18; Glucose Random 148 mg/dL (60-115); Potassium 4.4 mmol/L (3.3-5.1); Sodium 140 mmol/L (135-145)
[2021-03-16 11:15] LABS: Magnesium 1.4 mg/dL (1.6-2.6)
== END 2021-03-16 07:24 | disposition home or self-care (01) ==
LOC: HO.HOSX 07:23
PROVIDERS: Absent Provider Physician Assistant; PCP Internal Medicine; Visit Provider Physician Assistant
DX: E83.52 Hypercalcemia (principal)
CPT/HCPCS: 36415; 80048; 83735

== ENCOUNTER → 2021-03-17 14:02 | Outpatient (BNVA) | payer MEDICARE, SELFPAY | PROVIDERS: PCP Internal Medicine; Referring Provider Internal Medicine; Visit Provider Surgery | DX: S60.422A Blister (nonthermal) of right middle finger, initial encounter (principal) | CPT/HCPCS: 10160; 99212 ==

== ENCOUNTER 2021-05-06 12:19 | Emergency (ER) | payer MEDICARE, SELFPAY ==
--- NOTE | ~2021-05-06 | CT_ITS ---
EXAMINATION: CT HEAD/BRAIN WITHOUT CONTRAST CLINICAL INFORMATION: Fall with head and neck injury COMPARISON: January 01, 2020 TECHNIQUE: CT scanning from base of skull to vertex performed without IV contrast administration. This CT examination was performed using dose optimization techniques as appropriate, variously including the following: *Automated exposure control *Adjustment of mA and/or kV according to patient size (this includes techniques or standardized protocols for targeted exams where dose is matched to indication/reason for exam; i.e. extremities or head) *Use of iterative reconstruction technique DLP: 663 mGy-cm. FINDINGS: No abnormal extra-axial fluid collection or intracranial hemorrhage is seen. No significant mass effect or midline structure shift is evident. There is a lacunar infarct seen involving the left thalamus which was not present dating back to previous study of January 01, 2020. There is periventricular white matter low density present consistent with microangiopathy. Visualized paranasal sinuses and mastoid air cells unremarkable. CT/CT cervical spine wo con IMPRESSION: No acute intracranial abnormality. Interval left thalamic lacunar infarct. Microangiopathy. EXAMINATION: CT OF THE CERVICAL SPINE CLINICAL INFORMATION: Fall with neck injury COMPARISON: January 01, 2020. TECHNIQUE: Thin helical images with sagittal and coronal reformats. This CT examination was performed using dose optimization techniques as appropriate, variously including the following: *Automated exposure control *Adjustment of mA and/or kV according to patient size (this includes techniques or standardized protocols for targeted exams where dose is matched to indication/reason for exam; i.e. extremities or head) *Use of iterative reconstruction technique DOSE: DLP 494 mGy-cm FINDINGS: No abnormal prevertebral soft tissue swelling is seen. Paraspinal fat planes are maintained. There is fusion of the C5 and C6 vertebral bodies. No acute cervical spine fracture is seen. No destructive bony lesion identified. There is degenerative marginal spurring seen at the C2-C3 and C3-C4 disc space levels with narrowing of the C3-C4, C4-C5, and C6-C7 disc spaces. There is spurring of the joints of Luschka at the C4-C5 and C6-C7 levels but without significant bony encroachment of the neural foramina. Pterygoid plates intact. The lung apices are clear. Left thyroid calcification. IMPRESSION: Cervical spondylosis without acute cervical spine fracture.
[2021-05-06 12:35] VITALS: BP 130/86; PULSE 76; RESP 19; TEMP 35.5; O2SAT 98; BMI 35.5
[2021-05-06 13:15] VITALS: BP 165/78; PULSE 75; RESP 16; O2SAT 98
[2021-05-06] MEDS: Acetaminophen 325 MG TABLET 975 MG PO (13:31)
--- NOTE | 2021-05-06 14:48 | ED.FALL ---
HPI - Fall General Chief Complaint: Fall Stated Complaint: fell Time Seen by Provider: 05/06/21 13:11 Source: patient Mode of arrival: ambulatory Limitations: no limitations History of Present Illness HPI Narrative: 66-year-old female with a past medical history of anemia, CKD, DM, CHF, hypertension, hyperlipidemia, GERD and left [id number] amputation not on any blood thinners presenting to the ED with complaints of headache and neck pain after she had a mechanical fall prior to arrival. She reports that she was going out for the day for a GI Appointment and the gentleman was assisting her down the stairs in her wheelchair when he lost his balance and he fell forward and she fell forward as well injuring her head and neck prior to arrival. She denies loss of consciousness or prolonged down time. She denies any symptoms prior to the fall. She reports only a headache and pain after the fall no other symptoms. She denies any other symptoms complaints or concerns at this time. MD complaint: fall Onset (ago): minute(s) (Prior to arrival) Fall from: wheelchair Fall witnessed: yes, by family Place fall occurred: home Loss of consciousness: none Prolonged down time: no Symptoms prior to fall: none Context: tripped/slipped (The person who was helping her down the stairs tripped and fell making her fall down 6 steps) Location of injury: head and neck Severity: moderate Quality: aching Associated symptoms (after fall): denies Related Data Home Medications Medication Instructions Recorded Confirmed aspirin 81 mg tablet,delayed 81 mg PO BEDTIME 12/08/20 03/17/21 release calcium carbonate 500 mg (1,250 1 tab PO BID 12/08/20 03/17/21 mg)-vitamin D3 400 unit tablet citalopram 20 mg tablet 20 mg PO DAILY 12/08/20 03/17/21 gabapentin 100 mg capsule 100 mg PO BID 12/08/20 03/17/21 insulin aspart U-100 100 unit/mL 8 - 24 unit SUBCUT TID 12/08/20 03/17/21 (3 mL) subcutaneous pen insulin detemir U-100 100 unit/mL 64 unit SUBCUT DAILY 12/08/20 03/17/21 (3 mL) subcutaneous pen magnesium oxide 400 mg (241.3 mg 400 mg PO BID 12/08/20 03/17/21 magnesium) tablet rosuvastatin 10 mg tablet 10 mg PO BEDTIME 12/08/20 03/17/21 trazodone 50 mg tablet 50 mg PO BEDTIME 12/08/20 03/17/21 Previous Rx's Medication Instructions Recorded omeprazole 40 mg capsule,delayed 40 mg PO BID 30 Days #60 cap 11/05/20 release sucralfate 1 gram tablet (Carafate) 2 g PO DAILY 30 Days #60 tab 11/05/20 furosemide 20 mg tablet (Lasix) 10 mg PO Q OTHER DAY #20 tab 12/08/20 carvedilol 3.125 mg tablet 3.125 mg PO BID #60 tab 02/15/21 hydralazine 10 mg tablet 10 mg PO BID #60 tab 02/15/21 cefuroxime axetil 250 mg tablet 250 mg PO BID 7 Days #14 tab 02/25/21 cephalexin 500 mg capsule 500 mg PO QID 7 Days #28 cap 03/15/21 doxycycline hyclate 100 mg capsule 100 mg PO BID 7 Days #14 cap 03/15/21 metoclopramide HCl 5 mg tablet 5 mg PO QID #120 tab 03/31/21 acetaminophen 500 mg tablet 1,000 mg PO QID PRN #14 tab 05/06/21 (Tylenol Extra Strength) cyclobenzaprine 10 mg tablet 10 mg PO Q8H #10 tab 05/06/21 oxycodone 5 mg tablet 5 mg PO BID PRN #10 tab 05/06/21 Allergies Allergy/AdvReac Type Severity Reaction Status Date / Time latex [LATEX] Allergy Intermediate ITCHY Verified 02/25/21 09:16 Review of Systems Review of Systems: Constitutional : No Fever, No Chills, No Night Sweats, No Fatigue, No Malaise ENT/Mouth : No Ear Pain, No Nasal Congestion, No Sinus Pain, No sore throat, No Rhinorrhea Eyes: No Eye Pain, No Swelling, No Redness, No Foreign Body, No Discharge, No Vision Changes Cardiovascular : No Chest Pain, No SOB, No Dyspnea on Exertion, No Orthopnea, No Palpitations Respiratory : No Cough, No Sputum, No Wheezing, No Dyspnea Gastrointestinal : No Nausea, No Vomiting, No Diarrhea, No Constipation, No abdominal Pain, No Hematochezia, No Melena Genitourinary : No Dysuria, No Urinary Frequency, No Urinary Incontinence, No Urgency, No Flank Pain Musculoskeletal : No joint pain, No Myalgias Skin : No lacerations Neuro : Positive fall c head injury, No Focal weakness, no general weakness, No Numbness, No Paresthesias, No Loss of Consciousness, No Dizziness, No Headache Yes all other systems are reviewed and are negative REPLACED BY [facility] Past Medical History Attestation statement: The following information was validated with the patient. Medical History Anemia Blister of finger without infection Cholecystectomy planned CKD (chronic kidney disease) Congestive heart failure Diabetes Diabetes mellitus Essential hypertension GERD (gastroesophageal reflux disease) Hernia HLD (hyperlipidemia) HTN (hypertension) Nonischemic cardiomyopathy Other and unspecified hyperlipidemia Type 2 diabetes mellitus with unspecified complications Surgical History H/O: hysterectomy History of esophagogastroduodenoscopy (EGD) Hx of colonoscopy Hx of eye surgery Family History Family History Father Lung cancer Mother Diabetes HTN (hypertension) Heart disease Sister Diabetes Heart disease Brother Heart disease Son Diabetes Daughter Diabetes Social History Social History Household Members: Family Housing: Apartment Do you presently have visiting nurse or other home services: Yes Alcohol intake: never Patient Tobacco Use Status: Never used Tobacco Advance Directives: No Advance Directives Information Provided: Yes service: No Current occupational status: disabled Physical Exam Vital Signs: Vital Signs: Last Vital Signs Temp 96 F L 05/06/21 12:35 Pulse 76 05/06/21 16:30 Resp 16 05/06/21 16:30 BP 135/62 05/06/21 16:30 Pulse Ox 98 05/06/21 16:30 Body Mass Index 35.5 vital signs have been reviewed as normal and appeared to be correct. Blood pressure normal. Heart rate normal. Respiration rate normal. Temperature normal. Oxygen saturation normal. Appearance: Alert. Oriented X3. No acute distress. Head: Normal external exam. Normocephalic. Atraumatic. Eyes: PERRLA. EOMI. Conjunctiva and sclera normal. Eyelids normal. ENT: Pharynx normal. Uvula midline. Moist mucous membranes. No trismus noted. No drooling noted. No muffled voice noted. Neck: Normal inspection. Neck supple. FROM. No adenopathy. Thyroid Normal. Trachea midline. No meningeal signs. No neck mass noted. Tender to palpation of bilateral paracervical musculature and mid cervical tenderness. No step-offs or deformities noted. Patient neuro intact bilaterally and distally on all 4 extremities. Reflexes intact bilaterally and distally in all 4 extremities. No rashes/lesion/induration/fluctuance or signs of infection noted. No edema noted. CVS: Normal heart rate and rhythm. Heart sound normal. No murmurs noted. Pulses normal throughout. Respiratory: No respiratory distress. Painless inspiration. Breath sounds normal. No wheezes/rales/rhonchi noted. Chest nontender. No accessory muscle usage noted or decreased air movement noted. Back: Full range of motion noted. No obvious deformities, or edema. Full ROM in back and lower extremities. Skin: Skin warm and dry. Normal skin color. Normal skin turgor. No rashes/lesions/lacerations noted. Extremities: Extremities exhibit normal range of motion. Extremities nontender. Neuro: Oriented X 3. No motor deficit. No sensory deficit. Reflexes normal. Moving all extremities. No focal motor deficits. Cranial nerves II-XI intact bilaterally. Facial strength normal. Normal cognition. Speech normal. Strength 5/5 throughout. No pronator drift. No tremor noted. No fasciculations noted. No rigidity noted. Muscle tone normal throughout. No asterixis noted. Whtyji-bz-hoqd test normal. Hand drop from overhead Misses face. NIHSS score 0 Course Course Course Narrative: 13:30pm - 66-year-old female presenting to the ED with complaints of a headache and neck pain after she had a mechanical fall down approximately 6 steps with head injury no loss of consciousness. Not on any blood thinners. No symptoms prior to the fall that was mechanical. Only headache and neck pain after the fall no other symptoms. No prolonged down time. Plan: CT scan of brain/cervical spine provide 975 mg of Tylenol then re-evaluate. Reevaluation(s) Reevaluation #1: CT scan of cervical spine without contrast revealed FINDINGS: No abnormal prevertebral soft tissue swelling is seen. Paraspinal fat planes are maintained. There is fusion of the C5 and C6 vertebral bodies. No acute cervical spine fracture is seen. No destructive bony lesion identified. There is degenerative marginal spurring seen at the C2-C3 and C3-C4 disc space levels with narrowing of the C3-C4, C4-C5, and C6-C7 disc spaces. There is spurring of the joints of L[place]chka at the C4-C5 and C6-C7 levels but without significant bony encroachment of the neural foramina. ? Pterygoid plates intact. The lung apices are clear. Left thyroid calcification. ? IMPRESSION: Cervical spondylosis without acute cervical spine fracture. - CT scan of brain without contrast revealed FINDINGS: No abnormal extra-axial fluid collection or intracranial hemorrhage is seen. No significant mass effect or midline structure shift is evident. There is a lacunar infarct seen involving the left thalamus which was not present dating back to previous study of January 01, 2020. There is periventricular white matter low density present consistent with microangiopathy. Visualized paranasal sinuses and mastoid air cells unremarkable. IMPRESSION: No acute intracranial abnormality. ? Interval left thalamic lacunar infarct. ? Microangiopathy. - although it appears that there are no acute intracranial abnormalities therefore patient had an infarct that is age indeterminate - today she presented for mechanical fall because someone who is caring her fell and fell on her she denied any neurological symptoms prior to the fall. On my exam she does not have any neurological deficits. Therefore at this time will DC home with instructions follow-up with primary care provider and to return if any new or worsening symptoms. Patient understands agrees with this plan. Time: 16:45 Reevaluation #2: - I spoke to the patient's daughter over the phone and explained to her that it appears her mother had an age indeterminate infarct and she reported that this was old she already knew about the infarct. Time: 16:59 [facility] - Fall Medical Records Attestation: I reviewed the patient's medical records. Lab Data Attestation: I reviewed the patient's lab results. Discharge Plan Discharge Clinical Impression: Fall, Head injury, Cervical strain Patient Disposition: Home, Self-Care Instructions: Cervical Strain (ED), Fall Prevention for Older Adults (ED), Head Injury (ED) Prescriptions: New cyclobenzaprine 10 mg tablet 10 mg PO Q8H Qty: 10 RF: 0 acetaminophen [Tylenol Extra Strength] 500 mg tablet 1,000 mg PO QID PRN (Reason: fever or pain) Qty: 14 RF: 0 oxycodone 5 mg tablet 5 mg PO BID PRN (Reason: pain) Qty: 10 RF: 0 No Action hydralazine 10 mg tablet 10 mg PO BID Qty: 60 RF: 5 carvedilol 3.125 mg tablet 3.125 mg PO BID Qty: 60 RF: 5 metoclopramide HCl 5 mg tablet 5 mg PO QID Qty: 120 RF: 2 cefuroxime axetil 250 mg tablet 250 mg PO BID 7 Days Qty: 14 RF: 0 cephalexin 500 mg capsule 500 mg PO QID 7 Days Qty: 28 RF: 0 doxycycline hyclate 100 mg capsule 100 mg PO BID 7 Days Qty: 14 RF: 0 omeprazole 40 mg capsule,delayed release(DR/EC) 40 mg PO BID 30 Days Qty: 60 RF: 6 sucralfate [Carafate] 1 gram tablet 2 g PO DAILY 30 Days Qty: 60 RF: 6 insulin aspart U-100 100 unit/mL (3 mL) insulin pen 8 - 24 unit subcut TID RF: 0 gabapentin 100 mg capsule 100 mg PO BID RF: 0 rosuvastatin 10 mg tablet 10 mg PO BEDTIME RF: 0 magnesium oxide 400 mg (241.3 mg magnesium) tablet 400 mg PO BID RF: 0 aspirin 81 mg tablet,delayed release (DR/EC) 81 mg PO BEDTIME RF: 0 trazodone 50 mg tablet 50 mg PO BEDTIME RF: 0 citalopram 20 mg tablet 20 mg PO DAILY RF: 0 calcium carbonate-vitamin D3 500 mg(1,250mg) -400 unit tablet 1 tab PO BID RF: 0 insulin detemir U-100 100 unit/mL (3 mL) insulin pen 64 unit subcut DAILY RF: 0 furosemide [Lasix] 20 mg tablet 10 mg PO Q OTHER DAY Qty: 20 RF: 2 Referrals: Radha Mclean MD [Physician] - 2 days Physician,Unknown [Primary Care Provider] - 2 days (your pcp) Print Language: Scottish
[2021-05-06 16:30] VITALS: BP 135/62; PULSE 76; RESP 16; O2SAT 98
== END 2021-05-06 17:50 | disposition home or self-care (01) ==
PROVIDERS: Emergency Provider Emergency Medicine
DX: S09.90XA Unspecified injury of head, initial encounter (principal); M54.2 Cervicalgia; I12.9 Hypertensive chronic kidney disease with stage 1 through stage 4 chronic kidney disease, or unspecified chronic kidney disease; E11.22 Type 2 diabetes mellitus with diabetic chronic kidney disease; G44.309 Post-traumatic headache, unspecified, not intractable; W05.0XXA Fall from non-moving wheelchair, initial encounter; Y93.9 Activity, unspecified; Y92.9 Unspecified place or not applicable; Y99.9 Unspecified external cause status; N18.9 Chronic kidney disease, unspecified; Z79.4 Long term (current) use of insulin; Z79.82 Long term (current) use of aspirin; Z79.899 Other long term (current) drug therapy
CPT/HCPCS: 70450; 72125; 99284

== ENCOUNTER 2021-06-04 22:06 | Inpatient (IN) | payer MEDICARE, SELFPAY ==
[2021-06-04] VITALS (10 sets, daily range): BP systolic 106–176; BP diastolic 64–85; PULSE 66–95; RESP 16–18; TEMP 36.5; O2SAT 96–98
--- NOTE | ~2021-06-04 | CT_ITS ---
EXAMINATION: CTA NECK WITH CONTRAST (STROKE) CTA BRAIN WITH CONTRAST (STROKE) CLINICAL INFORMATION: Left arm weakness. TECHNIQUE: Test bolus sequences followed by intravenous administration 70 mL of Omnipaque 350 intravenous contrast. Helical imaging was performed in the axial plane from the mediastinum to the skull vertex. Delayed postcontrast imaging of the head was also performed. The data was processed at the robotics technologist's workstation for generation of MIP sequences. Three-dimensional volume rendered reformatted images were also generated at an offline 3-D workstation. This CT examination was performed using dose optimization techniques as appropriate, variously including the following: *Automated exposure control *Adjustment of mA and/or kV according to patient size (this includes techniques or standardized protocols for targeted exams where dose is matched to indication/reason for exam; i.e. extremities or head) *Use of iterative reconstruction technique The degree of stenosis determined by NASCET criteria. DLP: 1521 mGy-cm FINDINGS: Images are degraded by motion artifact SOFT TISSUES AND LUNG APICES: No overt abnormality is appreciated. CTA NECK: The aortic arch has a classic configuration and the major arch vessel origins are non-stenotic. The vertebral arteries are co-dominant and both vertebral origins are widely patent. Calcific atherosclerotic plaque at the origin of the right vertebral artery limiting assessment for patency at the origin. Retropharyngeal course of the bilateral common carotid arteries. The common carotid arteries are normal caliber. Both internal carotid arteries demonstrate mild atherosclerotic plaque without significant stenosis. CTA HEAD: There is normal opacification of the major intracranial vessels. Cavernous carotid calcifications. No acute proximal large vessel occlusion, focal flow-limiting stenosis, or saccular intracranial aneurysm is identified. origins of the bilateral posterior cerebral arteries, with diminutive P1 segment bilaterally. No abnormal parenchymal enhancement or regional oligemia is visualized. HEAD (delayed): No intracranial mass, intercerebral edema, hemorrhage, or midline shift is evident. The ventricles and sulci are stable in size and configuration. No extra-axial collections are appreciated. Extensive patchy and confluent subcortical and periventricular white matter low-attenuation changes reflective of chronic small vessel ischemic disease. Old left thalamic lacunar infarct. No pathologic intracranial enhancement. Dural sinuses are patent. The paranasal sinuses are well-aerated and clear. CT/CT angio head neck stroke IMPRESSION: No pneumonitis is significant stenosis or arterial occlusion within the intracranial or extracranial arterial vasculature. This critical result was discussed with Cecilia Church M.D. at 06/04/2021 10:45 PM and it was ascertained that the content and urgency of the report was understood at the time of direct communication.
--- NOTE | ~2021-06-04 | XR_ITS ---
EXAMINATION: XR CHEST CLINICAL INFORMATION: Shortness of breath COMPARISON: 06/26/2021 TECHNIQUE: Frontal view of the chest was obtained. FINDINGS: Patient is slightly rotated into a left posterior oblique position. Lungs are adequately expanded. Linear opacities of focal scar or discoid atelectasis in the lingula and right midlung zone. No evidence of pulmonary edema, consolidation or pleural effusion. No pneumothorax. Cardiac silhouette is normal in size. The visualized bones are intact. Multilevel osteophyte formation of the suboptimally visualized thoracic spine. XR/XR chest 1V IMPRESSION: No evidence of pulmonary edema. No acute pulmonary findings compared to the prior chest radiograph from 12/24/2020.
--- NOTE | ~2021-06-04 | CT_ITS ---
EXAMINATION: CT HEAD WITHOUT CONTRAST (STROKE PROTOCOL) CLINICAL INFORMATION: Stroke protocol. COMPARISON: 05/06/2021 TECHNIQUE: Contiguous axial imaging was performed from the skull base to vertex without intravenous administration of contrast. This CT examination was performed using dose optimization techniques as appropriate, variously including the following: *Automated exposure control *Adjustment of mA and/or kV according to patient size (this includes techniques or standardized protocols for targeted exams where dose is matched to indication/reason for exam; i.e. extremities or head) *Use of iterative reconstruction technique DLP: 750 mGy-cm FINDINGS: There is no intracranial hemorrhage, hematoma, or extra-axial fluid collection. The ventricles are normal in size. There is no hydrocephalus, edema, or mass effect. The chery-white matter differentiation appears symmetric. There is no acute infarct or mass lesion. Extensive subcortical and periventricular white matter low-attenuation changes reflective of chronic small vessel ischemic disease. Old left thalamic lacunar infarct. Cavernous carotid calcifications. The calvarium appears intact. There is no pneumocephalus or orbital emphysema. The visualized sinuses and middle ears and mastoid air cells show no significant mucosal thickening. There are no air-fluid levels. CT/CT head for stroke IMPRESSION: No acute edematous infarct is identified. Moderate chronic white matter small vessel ischemic changes and old left thalamic lacunar infarct. This critical result was discussed with Cecilia Church M.D. at 06/04/2021 10:24 PM and it was ascertained that the content and urgency of the report was understood at the time of direct communication.
--- NOTE | ~2021-06-04 | MR_ITS ---
EXAMINATION: MR BRAIN WITHOUT CONTRAST CLINICAL INFORMATION: Post tPA. COMPARISON: Head CTA 06/04/2021. TECHNIQUE: Multiplanar, multisequence imaging of the brain was performed without intravenous contrast. FINDINGS: A small focus of acute infarction is seen within the right thalamus. There is no large infarct, hemorrhage, mass, or extra-axial fluid collection. A punctate microhemorrhage is seen within the left external capsule region. Moderate patchy foci of T2/FLAIR hyperintensity is seen within the bilateral cerebral white matter compatible with chronic microangiopathy. There is chronic lacunar infarction within the bilateral basal ganglia and left thalamus. The ventricles are normal in size without hydrocephalus. The major arterial flow voids are preserved at the skull base. There are bilateral lens replacements. The extracranial structures are within normal limits. MR/MR head/brain wo con IMPRESSION: Small focus of acute infarction seen in the right thalamus. No evidence of hemorrhage. Background changes of moderate chronic microangiopathy and chronic lacunar infarcts in the right lateral basal ganglia and left thalamus.
--- NOTE | 2021-06-04 22:15 | ED.NEUROSD ---
HPI - Neuro Symptoms/Deficit General Chief Complaint: Stroke Stated Complaint: stroke Time Seen by Provider: 06/04/21 22:10 Related Data Home Medications Medication Instructions Recorded Confirmed aspirin 81 mg tablet,delayed 81 mg PO BEDTIME 12/08/20 06/04/21 release calcium carbonate 500 mg (1,250 1 tab PO BID 12/08/20 06/04/21 mg)-vitamin D3 400 unit tablet citalopram 20 mg tablet 20 mg PO DAILY 12/08/20 06/04/21 gabapentin 100 mg capsule 100 mg PO BID 12/08/20 06/04/21 insulin aspart U-100 100 unit/mL 8 - 24 unit SUBCUT TID 12/08/20 06/04/21 (3 mL) subcutaneous pen insulin detemir U-100 100 unit/mL 64 unit SUBCUT DAILY 12/08/20 06/04/21 (3 mL) subcutaneous pen magnesium oxide 400 mg (241.3 mg 400 mg PO BID 12/08/20 06/04/21 magnesium) tablet trazodone 50 mg tablet 50 mg PO BEDTIME 12/08/20 06/04/21 rosuvastatin 20 mg tablet 1 tab PO QPM 06/04/21 06/04/21 sertraline 50 mg tablet 1 tab PO QAM 06/04/21 06/04/21 Previous Rx's Medication Instructions Recorded omeprazole 40 mg capsule,delayed 40 mg PO BID 30 Days #60 cap 11/05/20 release acetaminophen 500 mg tablet 1,000 mg PO QID PRN #14 tab 05/06/21 (Tylenol Extra Strength) carvedilol 3.125 mg tablet 3.125 mg PO BID 90 Days #180 tab 05/12/21 hydralazine 10 mg tablet 10 mg PO BID 90 Days #180 tab 05/12/21 furosemide 20 mg tablet (Lasix) 10 mg PO Q OTHER DAY #20 tab 05/20/21 Allergies Allergy/AdvReac Type Severity Reaction Status Date / Time latex [LATEX] Allergy Intermediate ITCHY Verified 02/25/21 09:16 FORMERLY [facility], [facility] Past Medical History Medical History Anemia Blister of finger without infection Cholecystectomy planned CKD (chronic kidney disease) Congestive heart failure Diabetes Diabetes mellitus Essential hypertension GERD (gastroesophageal reflux disease) Hernia HLD (hyperlipidemia) HTN (hypertension) Nonischemic cardiomyopathy Other and unspecified hyperlipidemia Type 2 diabetes mellitus with unspecified complications Surgical History H/O: hysterectomy History of esophagogastroduodenoscopy (EGD) Hx of colonoscopy Hx of eye surgery Family History Family History Father Lung cancer Mother Diabetes HTN (hypertension) Heart disease Sister Diabetes Heart disease Brother Heart disease Son Diabetes Daughter Diabetes Social History Social History Household Members: Family Housing: Apartment Do you presently have visiting nurse or other home services: Yes Alcohol intake: never Patient Tobacco Use Status: Never used Tobacco Advance Directives: No Advance Directives Information Provided: Yes service: No Current occupational status: disabled Physical Exam Vital Signs: Vital Signs: Last Vital Signs Temp 97.7 F 06/04/21 22:42 Pulse 67 06/04/21 23:55 Resp 16 06/04/21 23:55 BP 145/72 H 06/04/21 23:55 Pulse Ox 96 06/04/21 23:55 Course Course Course Narrative: Head CT shows microvascular disease, no acute findings. At this time, 22:30, I discussed the patient with Dr. Mclean, the advice is to treat with tPA. I discussed the benefits versus risks of infusing tPA. Patient agrees and decide to go ahead and get treated. Patient tolerated well the tPA. Patient's mouth droop on the left side improved, however, the patient states that she still feels that her tongue is very heavy, the numbness/tingling on the left side of her face has not improved, patient still has left-sided arm drift. Patient denies any headache. Patient's chemistry shows a potassium level of 6.7, baseline is 4.5 for the patient. Patient cannot have any p.o. intake for the next 6 hours. However, after discussing the patient with Dr. Selby, he strongly recommends to go ahead and give Kayexalate. Patient was given calcium gluconate, D50, 10 units of insulin, 1 amp of sodium bicarb, patient's EKG does not show any EKG changes MDM - Neuro Symptoms/Deficit Lab Data Result diagrams: 06/04/21 22:52 06/04/21 23:33 Labs: Lab Results 06/04/21 06/04/21 06/04/21 Range/Units 22:10 22:15 22:52 WBC 11.9 H (4.8-10.8) X10*3/uL RBC 3.58 L (4.20-5.50) X10*6/uL Hgb 9.4 L (12.0-16.0) g/dl Hct 30.0 L (37-47) % MCV 83.8 (80-98) fL MCH 26.3 L (27.0-33.0) pg MCHC 31.3 (31.0-35.0) g/dl RDW 13.3 (11.0-16.0) % Plt Count 204 (160-400) X10*3/uL MPV 10.7 (9.4-12.3) fL Immature Gran % (Auto) 0.3 (0.0-0.4) % Neut % (Auto) 66.3 (45-73) % Lymph % (Auto) 21.1 (20-40) % [place] % (Auto) 8.1 (2-11) % Eos % (Auto) 3.9 (0-4) % Baso % (Auto) 0.3 (0-2) % Lymph # (Auto) 2.5 (1.2-4.9) X10*3/uL [place] # (Auto) 1.0 (0.1-1.2) X10*3/uL Eos # (Auto) 0.5 H (0.0-0.4) X10*3/uL Baso # (Auto) 0.0 (0.0-0.2) X10*3/uL Abs Immat Gran (auto) 0.04 H (0.00-0.03) X10*3/uL Absolute Neuts (auto) 7.9 (2.0-8.3) X10*3/uL Absolute Nucleated RBC 0.000 (0.0-0.012) X10*3/uL Nucleated RBC % (auto) 0.0 (0.0-0.2) /100WBC Whole Blood PT 12.8 (11.1-13.5) sec Whole Blood INR 1.1 (0.9-1.1) Sodium (135-145) mmol/L Potassium (3.3-5.1) mmol/L Chloride (96-108) mmol/L Carbon Dioxide (22-29) mmol/L Anion Gap (12-20) BUN (9-16) mg/dL Creatinine (0.5-1.4) mg/dL Estim Creat Clear Calc Estimated GFR POC Glucose 221 H (60-115) mg/dL Random Glucose (60-115) mg/dL Calcium (8.4-10.2) mg/dL Total Bilirubin (0.0-1.0) mg/dL Direct Bilirubin (0.0-0.5) mg/dL AST (5-31) U/L ALT (0-31) U/L Alkaline Phosphatase (39-117) U/L Troponin I High Sens (<3.5-17.0) ng/L Total Protein (6.5-8.0) g/dL Albumin (3.5-5.0) g/dL Ethyl Alcohol mg/dL COVID-19 (LUCIUS) (Negative) COVID-19 Clin Com 06/04/21 06/04/21 06/04/21 Range/Units 22:52 22:52 22:55 WBC (4.8-10.8) X10*3/uL RBC (4.20-5.50) X10*6/uL Hgb (12.0-16.0) g/dl Hct (37-47) % MCV (80-98) fL MCH (27.0-33.0) pg MCHC (31.0-35.0) g/dl RDW (11.0-16.0) % Plt Count (160-400) X10*3/uL MPV (9.4-12.3) fL Immature Gran % (Auto) (0.0-0.4) % Neut % (Auto) (45-73) % Lymph % (Auto) (20-40) % [place] % (Auto) (2-11) % Eos % (Auto) (0-4) % Baso % (Auto) (0-2) % Lymph # (Auto) (1.2-4.9) X10*3/uL [place] # (Auto) (0.1-1.2) X10*3/uL Eos # (Auto) (0.0-0.4) X10*3/uL Baso # (Auto) (0.0-0.2) X10*3/uL Abs Immat Gran (auto) (0.00-0.03) X10*3/uL Absolute Neuts (auto) (2.0-8.3) X10*3/uL Absolute Nucleated RBC (0.0-0.012) X10*3/uL Nucleated RBC % (auto) (0.0-0.2) /100WBC Whole Blood PT (11.1-13.5) sec Whole Blood INR (0.9-1.1) Sodium (135-145) mmol/L Potassium (3.3-5.1) mmol/L Chloride (96-108) mmol/L Carbon Dioxide (22-29) mmol/L Anion Gap (12-20) BUN (9-16) mg/dL Creatinine (0.5-1.4) mg/dL Estim Creat Clear Calc Estimated GFR POC Glucose (60-115) mg/dL Random Glucose (60-115) mg/dL Calcium (8.4-10.2) mg/dL Total Bilirubin (0.0-1.0) mg/dL Direct Bilirubin (0.0-0.5) mg/dL AST (5-31) U/L ALT (0-31) U/L Alkaline Phosphatase (39-117) U/L Troponin I High Sens 23.4 H* (<3.5-17.0) ng/L Total Protein (6.5-8.0) g/dL Albumin (3.5-5.0) g/dL Ethyl Alcohol < 10 mg/dL COVID-19 (LUCIUS) Negative (Negative) COVID-19 Clin Com See Note 06/04/21 Range/Units 23:33 WBC (4.8-10.8) X10*3/uL RBC (4.20-5.50) X10*6/uL Hgb (12.0-16.0) g/dl Hct (37-47) % MCV (80-98) fL MCH (27.0-33.0) pg MCHC (31.0-35.0) g/dl RDW (11.0-16.0) % Plt Count (160-400) X10*3/uL MPV (9.4-12.3) fL Immature Gran % (Auto) (0.0-0.4) % Neut % (Auto) (45-73) % Lymph % (Auto) (20-40) % [place] % (Auto) (2-11) % Eos % (Auto) (0-4) % Baso % (Auto) (0-2) % Lymph # (Auto) (1.2-4.9) X10*3/uL [place] # (Auto) (0.1-1.2) X10*3/uL Eos # (Auto) (0.0-0.4) X10*3/uL Baso # (Auto) (0.0-0.2) X10*3/uL Abs Immat Gran (auto) (0.00-0.03) X10*3/uL Absolute Neuts (auto) (2.0-8.3) X10*3/uL Absolute Nucleated RBC (0.0-0.012) X10*3/uL Nucleated RBC % (auto) (0.0-0.2) /100WBC Whole Blood PT (11.1-13.5) sec Whole Blood INR (0.9-1.1) Sodium 133 L (135-145) mmol/L Potassium 6.7 H* D (3.3-5.1) mmol/L Chloride 108 (96-108) mmol/L Carbon Dioxide 18 L (22-29) mmol/L Anion Gap 14 (12-20) BUN 52 H (9-16) mg/dL Creatinine 2.72 H (0.5-1.4) mg/dL Estim Creat Clear Calc TNP Estimated GFR 17 POC Glucose (60-115) mg/dL Random Glucose 205 H D (60-115) mg/dL Calcium 8.1 L (8.4-10.2) mg/dL Total Bilirubin 0.2 (0.0-1.0) mg/dL Direct Bilirubin < 0.2 (0.0-0.5) mg/dL AST 17 (5-31) U/L ALT 12 (0-31) U/L Alkaline Phosphatase 151 H (39-117) U/L Troponin I High Sens (<3.5-17.0) ng/L Total Protein 7.2 (6.5-8.0) g/dL Albumin 3.4 L (3.5-5.0) g/dL Ethyl Alcohol mg/dL COVID-19 (LUCIUS) (Negative) COVID-19 Clin Com Imaging Data Head and neck CTA: Radiologist's impression: SOFT TISSUES AND LUNG APICES: No overt abnormality is appreciated.? CTA NECK: The aortic arch has a classic configuration and the major arch vessel origins are non-stenotic. The vertebral arteries are co-dominant and both vertebral origins are widely patent. Calcific atherosclerotic plaque at the origin of the right vertebral artery limiting assessment for patency at the origin. Retropharyngeal course of the bilateral common carotid arteries. The common carotid arteries are normal caliber. Both internal carotid arteries demonstrate mild atherosclerotic plaque without significant stenosis.? CTA HEAD: There is normal opacification of the major intracranial vessels. Cavernous carotid calcifications. No acute proximal large vessel occlusion, focal flow-limiting stenosis, or saccular intracranial aneurysm is identified. origins of the bilateral posterior cerebral arteries, with diminutive P1 segment bilaterally. No abnormal parenchymal enhancement or regional oligemia is visualized. ? HEAD (delayed): No intracranial mass, intercerebral edema, hemorrhage, or midline shift is evident. The ventricles and sulci are stable in size and configuration. No extra-axial collections are appreciated. Extensive patchy and confluent subcortical and periventricular white matter low-attenuation changes reflective of chronic small vessel ischemic disease. Old left thalamic lacunar infarct. No pathologic intracranial enhancement. Dural sinuses are patent.? The paranasal sinuses are well-aerated and clear. CT/CT angio head? neck stroke IMPRESSION: No pneumonitis is significant stenosis or arterial occlusion within the intracranial or extracranial arterial vasculature.? Head CT: Radiologist's impression: FINDINGS: There is no intracranial hemorrhage, hematoma, or extra-axial fluid collection.? The ventricles are normal in size. There is no hydrocephalus, edema, or mass effect.? The chery-white matter differentiation appears symmetric. There is no acute infarct or mass lesion. Extensive subcortical and periventricular white matter low-attenuation changes reflective of chronic small vessel ischemic disease. Old left thalamic lacunar infarct. Cavernous carotid calcifications. The calvarium appears intact. There is no pneumocephalus or orbital emphysema.? The visualized sinuses and middle ears and mastoid air cells show no significant mucosal thickening. There are no air-fluid levels. CT/CT head for stroke IMPRESSION: No acute edematous infarct is identified. Moderate chronic white matter small vessel ischemic changes and old left thalamic lacunar infarct. ? ECG Data Attestation: I personally reviewed and interpreted this ECG as follows: (T-wave abnormalities in lead 1, 2, V3 through V6. QTC 511, there are no new EKG changes since at least March of 2021) NIH Stroke Scale Level of Consciousness: Alert Level of Consciousness Questions: Answers both questions correctly Level of Consciousness Commands: Performs both tasks correctly Best Gaze: Normal Visual: No visual loss Facial Palsy: Partial paralysis Motor Arm (Right): No drift Motor Arm (Left): Drift Motor Leg (Right): No drift Motor Leg (Left): No drift Limb Ataxia: Absent Sensory: Normal Best Language: No aphasia Dysarthia: Normal Extinction and Inattention: No abnormality Score: 3 Critical Care Time Critical Care Time Critical Care Time: Yes Total Critical Care Time: 90 Attestation: 90 minutes were spent in direct patient care, stabilization and consoles Discharge Plan Discharge Clinical Impression: Acute CVA (cerebrovascular accident), Acute hyperkalemia, Acute on chronic renal failure, Hypomagnesemia Prescriptions: No Action carvedilol 3.125 mg tablet 3.125 mg PO BID 90 Days Qty: 180 RF: 3 hydralazine 10 mg tablet 10 mg PO BID 90 Days Qty: 180 RF: 3 furosemide [Lasix] 20 mg tablet 10 mg PO Q OTHER DAY Qty: 20 RF: 2 sertraline 50 mg tablet 1 tab PO QAM RF: 0 rosuvastatin 20 mg tablet 1 tab PO QPM RF: 0 acetaminophen [Tylenol Extra Strength] 500 mg tablet 1,000 mg PO QID PRN (Reason: fever or pain) Qty: 14 RF: 0 omeprazole 40 mg capsule,delayed release(DR/EC) 40 mg PO BID 30 Days Qty: 60 RF: 6 insulin aspart U-100 100 unit/mL (3 mL) insulin pen 8 - 24 unit subcut TID RF: 0 gabapentin 100 mg capsule 100 mg PO BID RF: 0 magnesium oxide 400 mg (241.3 mg magnesium) tablet 400 mg PO BID RF: 0 aspirin 81 mg tablet,delayed release (DR/EC) 81 mg PO BEDTIME RF: 0 trazodone 50 mg tablet 50 mg PO BEDTIME RF: 0 citalopram 20 mg tablet 20 mg PO DAILY RF: 0 calcium carbonate-vitamin D3 500 mg(1,250mg) -400 unit tablet 1 tab PO BID RF: 0 insulin detemir U-100 100 unit/mL (3 mL) insulin pen 64 unit subcut DAILY RF: 0
[2021-06-04 22:17] LABS: Glucose, Whole Blood 221 mg/dL (60-115)
[2021-06-04 22:20] LABS: Prothrombin Time Whole Bld POC 12.8 sec (11.1-13.5); ~PT, ~INR - Anti Coag Clinic 1.1 (0.9-1.1)
--- NOTE | 2021-06-04 22:21 | ECG_ITS ---
Test Reason : STROKE Blood Pressure : / mmHG Vent. Rate : 081 BPM Atrial Rate : 081 BPM P-R Int : 180 ms QRS Dur : 130 ms QT Int : 440 ms P-R-T Axes : 053 -09 204 degrees QTc Int : 511 ms Normal sinus rhythm Non-specific intra-ventricular conduction block T wave abnormality, consider inferolateral ischemia Abnormal ECG When compared with ECG of 15-MAR-2021 12:03, No significant change was found Referred By: Cecilia Church Electronically Signed By:KALANI TOLEDO
[2021-06-04] MEDS: iohexoL 350 MG/ML 100 ML INFUS..BTL IV (22:25)
[2021-06-04 22:56] LABS: MANUAL DIFF FLAG NO
[2021-06-04 22:58] LABS: Basophils Percent Auto 0.3 % (0-2); Eosinophils Absolute Auto 0.5 X10*3/uL (0.0-0.4); Eosinophils Percent Auto 3.9 % (0-4); Hemoglobin 9.4 g/dl (12.0-16.0); Imm Gran Abs Auto 0.04 X10*3/uL (0.00-0.03); Imm Gran Pct Auto 0.3 % (0.0-0.4); Lymphocytes Absolute Auto 2.5 X10*3/uL (1.2-4.9); Lymphocytes Percent Auto 21.1 % (20-40); Mean Corpuscular HGB Conc 31.3 g/dl (31.0-35.0); Mean Corpuscular Hemoglobin 26.3 pg (27.0-33.0); Mean Corpuscular Volume 83.8 fL (80-98); Mean Platelet Volume 10.7 fL (9.4-12.3); Monocytes Percent Auto 8.1 % (2-11); Neutrophils Absolute Auto 7.9 X10*3/uL (2.0-8.3); Neutrophils Percent Auto 66.3 % (45-73); Platelet Count 204 X10*3/uL (160-400); Red Blood Count 3.58 X10*6/uL (4.20-5.50); Red Cell Distribution Width 13.3 % (11.0-16.0); White Blood Count 11.9 X10*3/uL (4.8-10.8)
[2021-06-04 23:18] LABS: COVID-19 Test Negative (Negative); IDNOW Serial# 08D9AD1C
[2021-06-04 23:20] LABS: Ethanol < 10 mg/dL
--- NOTE | 2021-06-04 23:22 | PC.NURSE ---
tpa given and confirmed with this rn and melissa landry rn.
[2021-06-04 23:34] LABS: Troponin-I High Sensitivity 23.4 ng/L (<3.5-17.0)
[2021-06-05] VITALS (37 sets, daily range): BP systolic 119–257; BP diastolic 31–139; PULSE 69–84; RESP 11–20; TEMP 36.3–37.1; O2SAT 92–100; BMI 33.5; BMI 33.3; BMI 32.8
[2021-06-05] LABS: Anion Gap 14 (12-20)
[2021-06-05 00:02] LABS: Alanine Aminotransferase 12 U/L (0-31); Albumin Level 3.4 g/dL (3.5-5.0); Alkaline Phosphatase 151 U/L (39-117); Aspartate Amino Transferase 17 U/L (5-31); Bilirubin Direct < 0.2 mg/dL (0.0-0.5); Bilirubin Total 0.2 mg/dL (0.0-1.0); Blood Urea Nitrogen 52 mg/dL (9-16); Calcium 8.1 mg/dL (8.4-10.2); Carbon Dioxide 18 mmol/L (22-29); Chloride 108 mmol/L (96-108); Estimated Glomerular Filt Rate 17; Glucose Random 205 mg/dL (60-115); Potassium 6.7 mmol/L (3.3-5.1); Sodium 133 mmol/L (135-145); Total Protein 7.2 g/dL (6.5-8.0)
[2021-06-05] MEDS: 0.9 % Sodium Chloride 1,000 ML 999 ML IVCONT (00:03)
--- NOTE | 2021-06-05 00:03 | PC.NURSE ---
tpa infusion complete, pt w/o complications, denies severe PUENTE or n/v, neuro status unchanged, vitals as charted
[2021-06-05] MEDS: Magnesium Sulfate/H2O 2 GM/50 ML PIGGYBACK IV (00:12)
[2021-06-05] MEDS: Sodium Bicarbonate 8.4% 50 MEQ/50 ML VIAL IVPUSH (00:21)
[2021-06-05] MEDS: Calcium Gluconate/NaCl,Iso-Osm 2 GM/100 ML PLAST..BAG IV (00:27)
[2021-06-05] MEDS: Insulin Regular, Human 100 UNIT/ML 3 ML VIAL 10 UNIT IVPUSH (00:34)
[2021-06-05] MEDS: Albuterol Sulfate (0.083%) 2.5 MG/3 ML VIAL.NEB 10 MG INHALE (00:35)
--- NOTE | 2021-06-05 00:36 | PC.NURSE ---
Kayexelate not given due to patient failing swallow eval and being npo for 6 hrs status post tpa administration.
--- NOTE | 2021-06-05 00:54 | P.HPCC_ITS ---
History of Present Illness Date of Service: 06/05/21 Chief Complaint: Left body numbness, ischemic stroke status post tPA. HPI: ?Patient who is a 66-year-old female has underlying history of an emia, chronic kidney disease stage 3-4 congestive heart failure, diabetes type 2, hypertension, GERD, hyperlipidemia, nonischemic cardiomyopathy among others.? Patient presented via EMS with complaints of weakness of the left side, numbness of the left face and left body as well as difficulty speaking which started around 9-9 3:00 p.m. patient also had a right-sided headache /10, pounding without any visual difficulties and she felt like she was going to pass out. Upon arrival to the emergency room, stroke protocol was activated, the patient was evaluated with an NIH of 3, CT of the head showed no hemorrhage, Neurology was consulted and tPA was administered at 10:55 p.m.. Further workup revealed a white count of 11.9, H&H of 9.4 and 30 respectively.? Platelet count was 204, INR 1.1, sodium 133, potassium 6.7, carbon dioxide 18, BUN 52, creatinine 2.72 (baseline) glucose 195, calcium 8.1, alk phos 151. COVID negative. ?Patient was treated with calcium gluconate, insulin and an amp of D50. Head CT as well as head and neck CTA did not show any evidence of acute infarct or large vessel occlusion. Currently the patient denies any other complaints. ROS:? As above, otherwise denies any recent skin changes, she does no longer have a headache, denies any worsening trouble seen, denies ear or nose problems, she denies the possibility of having difficulty swallowing her own saliva, has not had any neck masses or thyroid issues, denies emphysema, pneumonia, COPD, asthma, bronchitis, pneumonia, denies any current chest pain or shortness of breath although she thinks that she has had heart attacks in the past. Currently denies any abdominal pain, nausea, vomiting, diarrhea, melena or hematochezia, problems urinating, denies any recent traveling, no exposure to people with COVID, no history of PE or DVT. Other review of systems is above the remainder negative. 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 Family history: ?Father had lung cancer, mom had heart disease, diabetes, hypertension, sister had heart disease and diabetes, brother had heart disease and her son and daughter also have diabetes. Social History:? Patient lives at home with family, uses an electric chair, does not ambulate, does not use a prosthetic device on her left lower extremity. Does not use a walker or a cane. She has never smoked, denies alcohol or drugs. CODE STATUS: FULL CODE Allergies: ?Latex (pruritus) Home Medications:? Please see med rec PHYSICAL EXAM: VS: ?Blood pressure 178/83, heart rate 78, respirations 16, O2 sat 95% room air. General:? Alert oriented x3 no acute distress.? Speaking full sentences.? Speech is well articulated, thought process is coherent.? Speaks full sentences in Qatari. Following all commands. No facial droop. Skin:? Missing 2 fingers on the right hand, a small laceration which is actively bleeding of the right index finger, covered with dressing. Evidence of left BKA, mid abdominal surgical scar old in appearance. Otherwise Intact, no lesions, edema, erythema, clubbing or cyanosis.? No ulcers. HEENT:? Head is normocephalic, atraumatic, pupils equal round reactive to light accommodation bilaterally.? Extraocular movements appear intact.? Buccal mucosa is moist, Neck is supple without lymphadenopathy. Cardiac:? Clear S1-S2, no murmurs rubs or gallops. Pulmonary:? Clear to auscultation, no wheezes, rales or rhonchi. Abdomen:? Protuberant, positive bowel sounds in all 4 quadrants.? Soft, nontender, no rebound or guarding.? Musculoskeletal:? Moving all 4 extremities upon request a major joints, there is no crepitus or tenderness, including left BKA. There is no pronator drift. The strength is 5/5 bilaterally and throughout all 4 extremities.? There is no leg e leatha , no calf tenderness , no leg asymmetry.? Gait not assessed at this point. Neurologic:? As above, cranial nerves 2-12 are grossly intact.? No focal deficits noted. Motor strength as above.? Vascular:? 2+ pulses upper and lower extremities distally. SIGNIFICANT LABORATORY DATA: ?As above REVIEW OF IMAGES: Head CT IMPRESSION: No acute edematous infarct is identified. Moderate chronic white matter small vessel ischemic changes and old left thalamic lacunar infarct. ? This critical result was discussed with Cecilia Church M.D. at 06/04/2021 10:24 PM and it was ascertained that the content and urgency of the report was understood at the time of direct communication. ? Head and neck CTA IMPRESSION: No pneumonitis is significant stenosis or arterial occlusion within the intracranial or extracranial arterial vasculature.? ? This critical result was discussed with Cecilia Church M.D. at 06/04/2021 10:45 PM and it was ascertained that the content and urgency of the report was understood at the time of direct communication. EKG REVIEW: ?Since resume trickle rate 81 beats per minute.? No ST elevations, there is is depressions in the lateral leads and evidence of nonspecific intraventricular block. ?No comparison available. ASSESSMENT AND PLAN: 1. Acute ischemic stroke status post tPA 2. Acute hyperkalemia 3. Chronic kidney disease stage 3 4. Hypovolemic hyponatremia 5. Pseudo hypocalcemia 6. Hypoalbuminemia 7. Chronic Type 2 diabetes 8. Normocytic anemia likely of chronic disease 9. Permissible hypertension Plan is to admit to ICU, monitor vital signs, I's and O's, follow post tPA protocol including permissible hypertension, avoid aspirin products for 24 hours, gentle IV fluid hydration, echocardiogram, lipid profile in the morning, maximize statin, resume beta-kain given the history of CHF, monitor volume status closely, repeat labs in the morning, appreciate neurological input.? It i nsulin sliding scale 4 times a day along with basal long-acting insulin (1/3 of her daily dose). ?Will order 10 mg albuterol treatment to allow faster shift of her potassium and and will order p.o. Kayexalate if she passes the swallow eval. Resume some of her home medications. Despite of our tPA protocol of not giving anything orally for about 6 hours after tPA administration, we are over writing these to hopefully administer Kayexalate orally on this patient so that we can avoid having to put a hemodialysis catheter any time soon and given the fact that the patient receive tPA. Nursing instructions were given to perform this task, if the patient does not pass, we will administer Kayexalate rectally. GI PROPHYLAXIS:? IV ppi DVT PROPHYLAXIS:? Pneumatic stockings only as the patient is post tPA. Critical care time used for critical evaluation of this patient, diagnosis, treatment and coordination of care, review her records and documentation TOTAL CRITICAL CARE TIME 90 MIN . Patient's care was discussed in detail with Dr. Selby.? He is aware of all the above as well as the plan of care for this patient. [facility] Past Medical History Medical History Anemia Blister of finger without infection Cholecystectomy planned CKD (chronic kidney disease) Congestive heart failure Diabetes Diabetes mellitus Essential hypertension GERD (gastroesophageal reflux disease) Hernia HLD (hyperlipidemia) HTN (hypertension) Nonischemic cardiomyopathy Other and unspecified hyperlipidemia Type 2 diabetes mellitus with unspecified complications Family History Family History Father Lung cancer Mother Diabetes HTN (hypertension) Heart disease Sister Diabetes Heart disease Brother Heart disease Son Diabetes Daughter Diabetes Surgical History Surgical History H/O: hysterectomy History of esophagogastroduodenoscopy (EGD) Hx of colonoscopy Hx of eye surgery Social History Social History Household Members: Family Household Members Other:: grandchild Housing: Apartment Do you presently have visiting nurse or other home services: No Alcohol intake: never Patient Tobacco Use Status: Never used Tobacco Use of substances other than those prescribed or required for medical reasons: No Currently Displaying Signs/Symptoms of Drug Intoxication Withdrawal: No Have you been hit, kicked, punched, or otherwise hurt by someone within the past year? If so, by whom?: No Do you feel safe in your current relationship?: Yes Is there a partner from a previous relationship who is making you feel unsafe now?: No Are you made to feel afraid or neglected: No Advance Directives: No Advance Directives Information Provided: Yes Do you have thoughts of harming others: None Do you have a plan to hurt others: No Plan Recently lost weight without trying: No Nutrition Risks: No Nutritional Risk Patient : No : No service: No Current occupational status: disabled Meds Allergies Allergy/AdvReac Type Severity Reaction Status Date / Time latex [LATEX] Allergy Intermediate ITCHY Verified 02/25/21 09:16 Active Medications: Current Medications Generic Name Dose Route Start Last Admin Trade Name Freq PRN Reason Stop Dose Admin Carvedilol 3.125 mg 06/05/21 09:00 Carvedilol 3.125 Mg Tablet PO BID COUNT INCLUDES THE [facility] Protocol Dextrose 25 gm 06/05/21 00:26 Dextrose 50 % 25 Gm/50 Ml Vial IVPUSH Q15M PRN per Hypoglycemia Standing Ord. Protocol Escitalopram Oxalate 10 mg 06/05/21 09:00 Escitalopram Oxalate 10 Mg Tablet PO DAILY COUNT INCLUDES THE [facility] Glucose 15 gm 06/05/21 00:26 Glucose Gel 15 Gm Gel..Gram. PO Q15M PRN per Hypoglycemia Standing Ord. Protocol Magnesium Sulfate 2 gm in 50 mls @ 25 mls/hr 06/04/21 23:18 06/05/21 00:12 Magnesium Sulfate/H2o IV 06/05/21 01:17 25 mls/hr ONCE ONE Administration Calcium Gluconate 2 gm in 100 mls @ 50 mls/hr 06/05/21 00:03 06/05/21 00:27 Calcium Gluconate IV 06/05/21 02:02 50 mls/hr ONCE ONE Administration Insulin Glargine 20 unit 06/05/21 09:00 Insulin Glargine,Hum.Rec.Anlog 100 Unit/Ml 10 Ml Vial SUBCUT DAILY COUNT INCLUDES THE [facility] Insulin Human Lispro 0 unit 06/05/21 07:30 Insulin Lispro 100 Unit/Ml 3 Ml Vial SUBCUT QIDACHS COUNT INCLUDES THE [facility] Protocol Pantoprazole Sodium 40 mg 06/05/21 09:00 Pantoprazole Sodium 40 Mg/10 Ml Vial IVPUSH DAILY COUNT INCLUDES THE [facility] Sertraline HCl 50 mg 06/05/21 09:00 Sertraline Hcl 50 Mg Tablet PO DAILY COUNT INCLUDES THE [facility] Home Medications Medication Instructions Recorded Confirmed Last Taken Type aspirin 81 mg tablet,delayed 81 mg PO BEDTIME 12/08/20 06/04/21 Unknown History release calcium carbonate 500 mg (1,250 1 tab PO BID 12/08/20 06/04/21 Unknown History mg)-vitamin D3 400 unit tablet citalopram 20 mg tablet 20 mg PO DAILY 12/08/20 06/04/21 Unknown History gabapentin 100 mg capsule 100 mg PO BID 12/08/20 06/04/21 Unknown History insulin aspart U-100 100 unit/mL 8 - 24 unit SUBCUT TID 12/08/20 06/04/21 Unknown History (3 mL) subcutaneous pen insulin detemir U-100 100 unit/mL 64 unit SUBCUT DAILY 12/08/20 06/04/21 Unknown History (3 mL) subcutaneous pen magnesium oxide 400 mg (241.3 mg 400 mg PO BID 12/08/20 06/04/21 Unknown History magnesium) tablet trazodone 50 mg tablet 50 mg PO BEDTIME 12/08/20 06/04/21 Unknown History rosuvastatin 20 mg tablet 1 tab PO QPM 06/04/21 06/04/21 Unknown History sertraline 50 mg tablet 1 tab PO QAM 06/04/21 06/04/21 Unknown History Physical Exam Vital Signs: Vital Signs: Last Vital Signs Temp 97.7 F 06/04/21 22:42 Pulse 78 06/05/21 00:40 Resp 16 06/05/21 00:40 BP 178/83 H 06/05/21 00:40 Pulse Ox 95 06/05/21 00:40 Body Mass Index 33.5 Results Labs CBC and Chem 7: 06/05/21 08:17 06/05/21 08:17 Labs: Laboratory Results - last 24 hr 06/04/21 06/04/21 06/04/21 22:10 22:15 22:52 MCV 83.8 MCH 26.3 L MCHC 31.3 RDW 13.3 Plt Count 204 MPV 10.7 Immature Gran % (Auto) 0.3 Neut % (Auto) 66.3 Lymph % (Auto) 21.1 Cannon % (Auto) 8.1 Eos % (Auto) 3.9 Baso % (Auto) 0.3 Lymph # (Auto) 2.5 Cannon # (Auto) 1.0 Eos # (Auto) 0.5 H Baso # (Auto) 0.0 Abs Immat Gran (auto) 0.04 H Absolute Neuts (auto) 7.9 Absolute Nucleated RBC 0.000 Nucleated RBC % (auto) 0.0 Whole Blood PT 12.8 Whole Blood INR 1.1 Anion Gap Estim Creat Clear Calc Estimated GFR POC Glucose 221 H Random Glucose Calcium Total Bilirubin Direct Bilirubin AST ALT Alkaline Phosphatase Troponin I High Sens Total Protein Albumin Ethyl Alcohol COVID-19 (LUCIUS) COVID-19 Clin Com 06/04/21 06/04/21 06/04/21 22:52 22:52 22:55 MCV MCH MCHC RDW Plt Count MPV Immature Gran % (Auto) Neut % (Auto) Lymph % (Auto) Cannon % (Auto) Eos % (Auto) Baso % (Auto) Lymph # (Auto) Cannon # (Auto) Eos # (Auto) Baso # (Auto) Abs Immat Gran (auto) Absolute Neuts (auto) Absolute Nucleated RBC Nucleated RBC % (auto) Whole Blood PT Whole Blood INR Anion Gap Estim Creat Clear Calc Estimated GFR POC Glucose Random Glucose Calcium Total Bilirubin Direct Bilirubin AST ALT Alkaline Phosphatase Troponin I High Sens 23.4 H* Total Protein Albumin Ethyl Alcohol < 10 COVID-19 (LUCIUS) Negative COVID-19 Clin Com See Note 06/04/21 23:33 MCV MCH MCHC RDW Plt Count MPV Immature Gran % (Auto) Neut % (Auto) Lymph % (Auto) Cannon % (Auto) Eos % (Auto) Baso % (Auto) Lymph # (Auto) Cannon # (Auto) Eos # (Auto) Baso # (Auto) Abs Immat Gran (auto) Absolute Neuts (auto) Absolute Nucleated RBC Nucleated RBC % (auto) Whole Blood PT Whole Blood INR Anion Gap 14 Estim Creat Clear Calc TNP Estimated GFR 17 POC Glucose Random Glucose 205 H D Calcium 8.1 L Total Bilirubin 0.2 Direct Bilirubin < 0.2 AST 17 ALT 12 Alkaline Phosphatase 151 H Troponin I High Sens Total Protein 7.2 Albumin 3.4 L Ethyl Alcohol COVID-19 (LUCIUS) COVID-19 Clin Com Imaging Radiologist's Impressions: Impressions Head/Neck CTA 06/04/21 22:10 IMPRESSION: No pneumonitis is significant stenosis or arterial occlusion within the intracranial or extracranial arterial vasculature. This critical result was discussed with Cecilia Church M.D. at 06/04/2021 10:45 PM and it was ascertained that the content and urgency of the report was understood at the time of direct communication. Head CT 06/04/21 22:11 IMPRESSION: No acute edematous infarct is identified. Moderate chronic white matter small vessel ischemic changes and old left thalamic lacunar infarct. This critical result was discussed with Cecilia Church M.D. at 06/04/2021 10:24 PM and it was ascertained that the content and urgency of the report was understood at the time of direct communication.
[2021-06-05 01:03] LABS: Glucose, Whole Blood 195 mg/dL (60-115)
--- NOTE | 2021-06-05 01:38 | PC.NURSE ---
pt transported to ICU attached to cattle care worker w/ this RN and DONNIE Banuelos; transferred in stable condition w/ all belongings
[2021-06-05] MEDS: Sodium Polystyrene Sulfon/Sorb 15 GM/60 ML ORAL.SUSP 60 GM PO (02:07)
[2021-06-05] MEDS: Atorvastatin Calcium 80 MG TABLET PO (02:28)
[2021-06-05 03:09] LABS: Appearance Urine CLEAR; Color Urine YELLOW; Glucose Urine UA 100 MG/DL (NEG); Leukocyte Esterase Urine NEG (NEG); Nitrite Urine NEG (NEG); Specific Gravity - Urine 1.015 (1.005-1.025); UACC Culture Trigger NO; Urine Blood TRACE (NEG); Urine Ketones NEG (NEG); Urine Protein 2+ MG/DL (NEG-TRACE)
[2021-06-05 03:15] LABS: Bacteria Urine TRACE /LPF; RBC Urine 0-2 /HPF (0); Squamous Epithelial Cell Urine 2+ /LPF; WBC Urine 0 /HPF (0-4)
[2021-06-05 03:53] LABS: Anion Gap 14 (12-20); Blood Urea Nitrogen 50 mg/dL (9-16); Calcium 9.1 mg/dL (8.4-10.2); Carbon Dioxide 20 mmol/L (22-29); Chloride 112 mmol/L (96-108); Creatinine Clr Calc Pharmacy 20.7; Estimated Glomerular Filt Rate 18; Glucose Fasting 93 mg/dL (60-99); Potassium 5.2 mmol/L (3.3-5.1); Sodium 141 mmol/L (135-145)
--- NOTE | 2021-06-05 05:57 | PC.NURSE ---
Patient arrived to the unit via stretcher. Patient was assessed by the PA. Swallow evaluation was performed at bedside per direction of PA. Patient passed swallow eval and kayexalate was administered. Physical and neuro assessment was performed with the assistance of the [place] scalloper. Patient has a ulcertation on the 2nd digit of right hand, site was bleeding after administration of TPA. Site dressed with surgicel and xeroform.
[2021-06-05 07:26] LABS: Glucose, Whole Blood 92 mg/dL (60-115)
--- NOTE | 2021-06-05 08:00 | CA_ITS ---
Transthoracic Echocardiogram Patient (Last, First, Middle): Debbie Guerra, Gender: Female Date of : 1955 Age: 66 Procedure Date: 06/05/2021 Procedure Type: Transthoracic Echocardiogram Location: ICU Height: 160.02 cm Weight: 83.92 kg BSA: 1.87 m2 Heart Rate: bpm BP: 100 / 79 mmHg Client Support Consultant: BRIGITTE Tom MD: Ace GARCIA Um Nurse: Luis Bal MD Symptoms: stroke Study Quality: Fair/Contrast ECG Rhythm: Sinus Conclusions: - 1. Normal LV systolic function with grade 2 diastolic dysfunction 2. Mild left atrial enlargement 3. Calcified aortic valve changes noted with mild aortic stenosis 4. Mitral calcification with mild regurgitation 5. Severely elevated right ventricular systolic pressure 6. No pericardial effusion Findings Procedure Information Contrast agent, definity, is being given per protocol without apparent complications. Left Ventricle Normal left ventricular cavity size. There is normal left ventricular wall thickness. The left ventricular systolic function is moderately decreased. The visually estimated ejection fraction is between 35-40%. There is moderate global hypokinesis. Spectral Doppler is indicative of a pseudonormal filling pattern. E/E prime ratio is >15, consistent with elevated filling pressures. Evidence suggests grade II (moderate) diastolic dysfunction. Right Ventricle Normal right ventricular cavity size. Atria The left atrium is mildly dilated. Interatrial shunt cannot be excluded. The right atrium is normal in size. Aortic Valve There is mild calcification of the aortic valve. The peak aortic gradient is 17 mmHg.The mean gradient is 8 mmHg. There is no aortic valve regurgitation. Mitral Valve There is moderate anterior and mild posterior mitral leaflet thickening. There is mild mitral annular calcification. There is mild mitral valve regurgitation. There is no mitral valve stenosis. Pulmonic Valve The pulmonic valve was not well visualized. Tricuspid Valve Likely normal tricuspid valve structure and function. The right ventricular systolic pressure is 75 mmHg. Mildly elevated right atrial pressure. Severe pulmonary hypertension is present. Great Vessels All visible segments of the aorta are normal in size. The pulmonary artery was not well visualized. Venous The inferior vena cava is mildly dilated and collapses greater than 50% with inspiration. Pericardium/Pleural There is no evidence of pericardial effusion. Prior Study Comparison Changes noted compared to prior study dated: 12/25/2020. RV systolic pressure is significantly increased Measurements 2D Linear Measurements IVSd: 1.19 0.6-0.9/0.6-1.0 cm LVIDd: 5.13 3.9-5.3/4.2-5.9 cm LVIDd Index: 2.74 2.4-3.2/2.2-3.1 cm/m2 LVIDs: 4.32 2.0-3.6 cm LVPWd: 1.11 0.7-1.1 cm Ao Root: 2.60 2.1-3.5 cm LA Diam: 4.40 2.7-3.8/3.0-4.0 cm LAIDs Index: 2.35 1.5-2.3 cm/m2 LV Mass: 286.17 67-162/88-224 g LV Mass Index: 153.03 43-95/49-115 g/m2 LVOT Diam: 1.90 3.0+(-)1.3 cm 2D Systolic Function EF 4C: 32.80 >55% EF 2C: 41.00 >55% EF BiP: 35.80 >55% Mitral Valve MV Pk E: 1.46 MV PK A: 1.12 MV Decel Time: 217.00 E/A: 1.30 E'Lateral: 8.27 E'Medial: 3.92 E/E' Med: 37.20 E/E' Lat: 17.70 PHT: 64.00 MVA PHT: 3.44 Decel [place]: 6.71 Aortic Valve AoV Pk Rudy: 2.09 AoV Mn Rudy: 1.33 AoV VTI: 0.48 AoV Pk Grad: 17.00 Aov Mn Grad: 8.00 MAGNOLIA Cont.VTI: 1.17 LVOT LVOT Pk Rudy: 0.78 LVOT Mn Rudy: 0.54 LVOT VTI: 0.20 LVOT Pk Grad: 2.00 LVOT Mn Grad: 1.00 LVOT Diam: 1.90 LVOT Area: 2.84 Diastolic Function MV Pk E: 1.46 MV Pk A: 1.12 E/A: 1.30 E'Medial: 3.92 E/E' Med: 37.20 E' Laterial: 8.27 E/E' Lat: 17.70 Right Ventricle TAPSE (mm): 1.82 TVS' Rudy: 9.14 Tricuspid Valve TR Pk Rudy: 4.09 TR Pk Grad: 67.00 RA Press: 8.00 RVSP: 75.00 Great Vessels Aorta Ao Root-2D: 2.60 2.0-3.7 cm Ao Asc: 2.70 2.1-3.4 cm Updated in Other Vendor System with Status of Final Luis Bal MD electronically signed on 06/05/2021 11:52:07 AM with status of Final
[2021-06-05 08:33] LABS: MANUAL DIFF FLAG NO
[2021-06-05 08:35] LABS: Basophils Percent Auto 0.3 % (0-2); Eosinophils Absolute Auto 0.5 X10*3/uL (0.0-0.4); Eosinophils Percent Auto 4.3 % (0-4); Hematocrit 30.2 % (37-47); Hemoglobin 9.5 g/dl (12.0-16.0); Imm Gran Abs Auto 0.08 X10*3/uL (0.00-0.03); Imm Gran Pct Auto 0.7 % (0.0-0.4); Lymphocytes Absolute Auto 2.2 X10*3/uL (1.2-4.9); Mean Corpuscular HGB Conc 31.5 g/dl (31.0-35.0); Mean Corpuscular Hemoglobin 26.1 pg (27.0-33.0); Mean Platelet Volume 10.6 fL (9.4-12.3); Monocytes Absolute Auto 0.9 X10*3/uL (0.1-1.2); Neutrophils Absolute Auto 7.8 X10*3/uL (2.0-8.3); Neutrophils Percent Auto 67.7 % (45-73); Platelet Count 219 X10*3/uL (160-400); Red Blood Count 3.64 X10*6/uL (4.20-5.50); Red Cell Distribution Width 13.2 % (11.0-16.0); White Blood Count 11.5 X10*3/uL (4.8-10.8)
[2021-06-05 08:58] LABS: Alanine Aminotransferase 10 U/L (0-31); Albumin Level 3.4 g/dL (3.5-5.0); Alkaline Phosphatase 137 U/L (39-117); Anion Gap 15 (12-20); Aspartate Amino Transferase 16 U/L (5-31); Bilirubin Total 0.3 mg/dL (0.0-1.0); Blood Urea Nitrogen 49 mg/dL (9-16); Calcium 8.8 mg/dL (8.4-10.2); Carbon Dioxide 21 mmol/L (22-29); Chloride 111 mmol/L (96-108); Cholesterol 104 mg/dL; Creatinine Clr Calc Pharmacy 20.5; Estimated Glomerular Filt Rate 18; Glucose Random 97 mg/dL (60-115); HDL Cholesterol 31 mg/dL; LDL Cholesterol Calculated 47 mg/dl; Phosphorus 5.4 mg/dL (2.7-4.5); Potassium 5.6 mmol/L (3.3-5.1); Sodium 141 mmol/L (135-145); Total Protein 6.8 g/dL (6.5-8.0); Triglycerides 134 mg/dL
[2021-06-05] MEDS: Escitalopram Oxalate 10 MG TABLET PO (09:11)
[2021-06-05] MEDS: Sertraline HCL 50 MG TABLET PO (09:11)
[2021-06-05] MEDS: Pantoprazole Sodium 40 MG/10 ML VIAL IVPUSH (09:12)
--- NOTE | 2021-06-05 09:14 | MHC.STROKE ---
Addendum entered by Kellen Tellez RN 06/14/21 11:44: I FOLLOWED UP WITH THE PATIENT TODAY AND SHE WAS VERY HAPPY AND COOPERATIVE. SHE IS BACK TO HER BASELINE. STROKE EDUCATION REINFORCED, ALL STROKE MEASURES MET. I REVIEWED HER DIAGNOSIS AND STROKE RISK FACTORS, I ALSO PROVIDED HER WITH A COPY OF THE MRI SCREEN SHOT. SHE DID NOT HAVE ANY COMPLICATIONS FROM THE TPA (ALTEPLASE). Addendum entered by Kellen Tellez RN 06/05/21 20:17: MRI + for right thalamic stroke which correlates with the left sided weakness. Please provide stroke education booklet to patient in Japanese and use the carton filling machine operator. Document that all interventions were covered on the worklist under Stroke Education. Thank You. Original Note: EMS PRE-NOTIFIED STROKE ALERT 06/04/21 AT 2204.LEFT SIDED WEAKNESS. NIHSS = 3. STROKE PROTOCOL ACTIVATED. DIRECT TO CT AND CTA. NO BLEED AND NO LVO. ELIGIBLE FOR TPA (ALTEPLASE). 74MG GIVEN A T 2256. [id number] = 50 MINUTES. DELAY GREATER THAN 30 MINUTES AND 45 MINUTES DUE TO CLARIFICATION OF ELIGIBILITY BY MD, ABNORMAL LABS. INITIALLLY KEPT NPO AND FAILED SWALLOW SCREEN, THEN PASSED. ALL STROKE MEASURES MET. INITIATE STROKE EDUCATION WITH SINK MAKER. I WILL CONTINUE TO FOLLOW. MRI PENDING.
--- NOTE | 2021-06-05 10:08 | PM.NEUROCN ---
History of Present Illness Data of Consult Service Date: 06/05/21 Primary Care Provider: Unknown Physician HPI Reason for consult: Stroke 66 years old woman with underlying history of obesity diabetes and hypertension who came to hospital with sudden onset of left-sided numbness and weakness. Left side of the face and tongue was numb left arm and hand were numb and weak and similar feeling was noted in left leg but she also had left below-knee amputation. She was evaluated in emergency room and because of sudden nature of her symptoms and suspicion of ischemic stroke she was treated with intravenous tPA. There was no associated headache double vision nausea or vomiting. There was no recent trauma fever or chills. She said that she still had those symptoms. FOR[facility]LY [facility] Past Medical History Medical History Anemia Blister of finger without infection Cholecystectomy planned CKD (chronic kidney disease) Congestive heart failure Diabetes Diabetes mellitus Essential hypertension GERD (gastroesophageal reflux disease) Hernia HLD (hyperlipidemia) HTN (hypertension) Nonischemic cardiomyopathy Other and unspecified hyperlipidemia Type 2 diabetes mellitus with unspecified complications Family History Family History Father Lung cancer Mother Diabetes HTN (hypertension) Heart disease Sister Diabetes Heart disease Brother Heart disease Son Diabetes Daughter Diabetes Surgical History Surgical History H/O: hysterectomy History of esophagogastroduodenoscopy (EGD) Hx of colonoscopy Hx of eye surgery Social History Social History Household Members: Family Household Members Other:: grandchild Housing: Apartment Do you presently have visiting nurse or other home services: No Alcohol intake: never Patient Tobacco Use Status: Never used Tobacco Use of substances other than those prescribed or required for medical reasons: No Currently Displaying Signs/Symptoms of Drug Intoxication Withdrawal: No Have you been hit, kicked, punched, or otherwise hurt by someone within the past year? If so, by whom?: No Do you feel safe in your current relationship?: Yes Is there a partner from a previous relationship who is making you feel unsafe now?: No Are you made to feel afraid or neglected: No Advance Directives: No Advance Directives Information Provided: Yes Do you have thoughts of harming others: None Do you have a plan to hurt others: No Plan Recently lost weight without trying: No Nutrition Risks: No Nutritional Risk Patient : No : No service: No Current occupational status: disabled Meds Allergies Allergy/AdvReac Type Severity Reaction Status Date / Time latex [LATEX] Allergy Intermediate ITCHY Verified 02/25/21 09:16 Active Medications: Current Medications Generic Name Dose Route Start Last Admin Trade Name Freq PRN Reason Stop Dose Admin Carvedilol 3.125 mg 06/05/21 09:00 Carvedilol 3.125 Mg Tablet PO BID [facility] Protocol Dextrose 25 gm 06/05/21 00:26 Dextrose 50 % 25 Gm/50 Ml Vial IVPUSH Q15M PRN per Hypoglycemia Standing Ord. Protocol Escitalopram Oxalate 10 mg 06/05/21 09:00 06/05/21 09:11 Escitalopram Oxalate 10 Mg Tablet PO 10 mg DAILY [facility] Administration Glucose 15 gm 06/05/21 00:26 Glucose Gel 15 Gm Gel..Gram. PO Q15M PRN per Hypoglycemia Standing Ord. Protocol Insulin Glargine 20 unit 06/05/21 09:00 Insulin Glargine,Hum.Rec.Anlog 100 Unit/Ml 10 Ml Vial SUBCUT DAILY [facility] Insulin Human Lispro 0 unit 06/05/21 07:30 06/05/21 07:24 Insulin Lispro 100 Unit/Ml 3 Ml Vial SUBCUT Not [facility] Protocol Pantoprazole Sodium 40 mg 06/05/21 09:00 06/05/21 09:12 Pantoprazole Sodium 40 Mg/10 Ml Vial IVPUSH 40 mg DAILY [facility]ATTY Administration Sertraline HCl 50 mg 06/05/21 09:00 06/05/21 09:11 Sertraline Hcl 50 Mg Tablet PO 50 mg DAILY MATTY Administration Home Medications Medication Instructions Recorded Confirmed Last Taken Type aspirin 81 mg tablet,delayed 81 mg PO BEDTIME 12/08/20 06/04/21 Unknown History release calcium carbonate 500 mg (1,250 1 tab PO BID 12/08/20 06/04/21 Unknown History mg)-vitamin D3 400 unit tablet citalopram 20 mg tablet 20 mg PO DAILY 12/08/20 06/04/21 Unknown History gabapentin 100 mg capsule 100 mg PO BID 12/08/20 06/04/21 Unknown History insulin aspart U-100 100 unit/mL 8 - 24 unit SUBCUT TID 12/08/20 06/04/21 Unknown History (3 mL) subcutaneous pen insulin detemir U-100 100 unit/mL 64 unit SUBCUT DAILY 12/08/20 06/04/21 Unknown History (3 mL) subcutaneous pen magnesium oxide 400 mg (241.3 mg 400 mg PO BID 12/08/20 06/04/21 Unknown History magnesium) tablet trazodone 50 mg tablet 50 mg PO BEDTIME 12/08/20 06/04/21 Unknown History rosuvastatin 20 mg tablet 1 tab PO QPM 06/04/21 06/04/21 Unknown History sertraline 50 mg tablet 1 tab PO QAM 06/04/21 06/04/21 Unknown History Physical Exam Vital Signs: Vital Signs: Last Vital Signs Temp 97.4 F 06/05/21 08:00 Pulse 71 06/05/21 10:00 Resp 13 06/05/21 10:00 BP 119/65 06/05/21 10:00 Pulse Ox 95 06/05/21 10:00 Body Mass Index 32.8 Neuro: Other: She was alert and awake with normal spontaneity of speech fluency comprehension and affect. Many teeth were missing and that was affecting her speech. Into was performed with the help of an floor and wall applier liquid. Pupils were about 3-4 mm round reactive. Extraocular muscles were intact. Visual wilkes are full. Face revealed mild right-sided facial flatness. Arthritic changes were noted in hands. She had difficulty lifting her left arm against gravity but she was able to lift it up. There was mild weakness of left hand. 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 Right leg strength against gravity was intact. Plantar was flexor. Results Labs CBC & Chem 7: 06/05/21 08:17 06/05/21 08:17 Labs: Short CBC 06/04/21 06/05/21 Range/Units 22:52 08:17 WBC 11.9 H 11.5 H (4.8-10.8) X10*3/uL Hgb 9.4 L 9.5 L (12.0-16.0) g/dl Hct 30.0 L 30.2 L (37-47) % Plt Count 204 219 (160-400) X10*3/uL BMP 06/04/21 06/05/21 06/05/21 23:33 03:29 08:17 Sodium 133 L 141 141 Potassium 6.7 H* D 5.2 H D 5.6 H Chloride 108 112 H 111 H Carbon Dioxide 18 L 20 L 21 L BUN 52 H 50 H 49 H Creatinine 2.72 H 2.70 H 2.69 H Calcium 8.1 L 9.1 D 8.8 Liver Function 06/04/21 06/05/21 Range/Units 23:33 08:17 Total Bilirubin 0.2 0.3 (0.0-1.0) mg/dL Direct Bilirubin < 0.2 (0.0-0.5) mg/dL AST 17 16 (5-31) U/L ALT 12 10 (0-31) U/L Alkaline Phosphatase 151 H 137 H (39-117) U/L Albumin 3.4 L 3.4 L (3.5-5.0) g/dL Urine 06/05/21 Range/Units 02:56 Urine Color YELLOW Urine Appearance CLEAR Urine pH 6.0 (5.0-8.0) Ur Specific [place] 1.015 (1.005-1.025) Urine Protein 2+ H (NEG-TRACE) MG/DL Urine Glucose (UA) 100 H (NEG) MG/DL Noncontrast head CT did not reveal any obvious acute abnormality. A chronic left posterior limb of internal capsule/thalamic infarct and moderate amount of chronic microvascular ischemic changes were noted. CTA of brain and neck did not reveal any significant stenosis. EKG revealed normal sinus rhythm. Cervical spine CT did not reveal any fracture. Assessment and Plan (1) Cerebral infarction: Status: Acute 66 years old woman with underlying obesity, uncontrolled hypertension, renal insufficiency, and diabetes who presented with sudden onset of left-sided numbness and weakness involving face tongue arm hand and body. Her examination was partly limited because of previous partial leg amputation on the left side. With signs of hemiparesis noted in emergency room in acute setting, she was appropriately treated with intravenous tPA. She previously had significant amount of microvascular disease and atherothrombotic left subcortical infarct. This time infarct was probably on the other side and of similar nature. Following is recommended: 1. No blood thinner for 24 hours after tPA. After that start aspirin 81 mg daily and Plavix 75 mg daily for a month. After a month, fund of these agents could be drop. 2. Blood pressure control 3. Sugar control 4. Continue statin 5. Appropriate investigation and treatment of anemia numbers 6. Proper per patient's and family education about stroke and its prevention 7. PT OT Procedures Date of Service Date of Service: 06/05/21
[2021-06-05 12:00] LABS: Glucose, Whole Blood 91 mg/dL (60-115)
[2021-06-05] MEDS: Insulin Glargine,Hum.rec.anlog 100 UNIT/ML 10 ML VIAL 20 UNIT SUBCUT (12:27)
--- NOTE | 2021-06-05 14:43 | PM.CCPN ---
Subjective Subjective Date of Service: 06/05/21 Interval History: Mrs. Guerra was admitted to the ICU early this morning after treatment in the ED with tPA for a stroke. 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 Social History:? Patient lives at home with family, uses an electric chair, does not ambulate, does not use a prosthetic device on her left lower extremity.? Does not use a walker or a cane.? She has never smoked, denies alcohol or drugs. HISTORY OF PRESENT ILLNESS:? The patient had sudden onset of weakness of the left side, numbness of the left face and left body as well as difficulty speaking around 9pm last night, with a severe right-sided headache.? She was brought in by ambulance to the ED. In the ED, she had a left mouth droop and numbness of her tongue and left side of her face, and left arm drift.? NIH stroke score was 3. ?CT showed no hemorrhage; there were moderate chronic small-vessel ischemic changes, and an old left thalamic lacunar infarct. ?Neurology was consulted and tPA was administered at 10:55 p.m. Subsequent CTA did not show any evidence of acute infarct or large vessel occlusion. ?Lab workup was notable for Hb of 9.4, sodium 133, BUN/creatinine 52/2.7 (approximately her baseline), potassium 6.7 (baseline is mid-4 - 5 range; was up to 6.3 in March,.? She is not on Kayexalate at home), bicarb 18, glucose 195. She was COVID negative.? She was given medical management for her hyperkalemia, along with a liter of IV fluids.? She was admitted to the ICU for overnight observation. On admission to the ICU, she was fully alert, speaking full sentences, without any aphasia or dysarthria.? Blood pressure was 178/83, she is breathing easy with a sat of 95% on room air. This afternoon, she?s breathing easy, with Sat 99% on room air.? HR 75, BP 111/74.? She was able to eat a sandwich all by herself with no problem.? She feels like her whole left side, from her face to her left leg, is numb and tingly.? She has a very mild, but obvious droop of the right corner of her mouth.? Her smile looks normal.? Tongue protrudes midline.? She has very slight weakness of left periorbital muscles.? She has very slight weakness of her left upper extremity and left handgrip.? Her head and neck habitus are suggestive of LEENA. LABORATORY DATA:? As below.? Notably, BUN and creatinine steady at 49/2.7, potassium up slightly to 5.6, bicarb up slightly to 21. Phosphorus is 5.4 (was 3.6 in November,) BRAIN MRI: ?Small acute infarction n the right thalamus. ?No hemorrhage. ?Background changes of moderate chronic microangiopathy, and chronic lacunar infarcts in the right lateral basal ganglia and left thalamus. ECHOCARDIOGRAM done by the tech at the bedside.? Findings: 1. Normal LV wall thickness. 2. LV has moderate global hypokinesis, with EF 35-40%, with grade 2 diastolic dysfunction. 3. Normal RV cavity size. 4. Mild left atrial enlargement. 5. Calcified aortic valve, w mild aortic stenosis, gradients 17/8mm. 6. Mitral calcification with mild MR. 7. TV CWD jet 4.1 m/sec.? Gradient 67mm. 8. IVC is mildly dilated w > 50% inspiratory collapse.? CVP estimate 8mm.? RVSP estimate 75mm. IMPRESSION: 1. Acute ischemic stroke.? Status post tPA.? I didn?t examine her in the ED, but from what I heard and from my exam today, I?m guessing that she?s unchanged from admission to the ED last night and has had no benefit from the TPA. 2. CKD stage 3. 3. Acute hyperkalemia.? Rx kayexelate. 4. Metabolic acidosis.? Secondary to CKD.? I?ll put her on oral bicarbonate. 5. DM.? Her POCs may go up when she starts eating. 6. Anemia.? Likely ACD. 7. Mild and severe PHTN, per the echo.? The latter may be 2? obesity, LEENA, and left heart failure. 8. ? Mild PCM. She is stable for transfer to [facility] later today.? Will start her on ASA tonite. Time:? 28500. Critical Care Time (minutes): 0 Physical Exam Vital Signs: Vital Signs: Last Vital Signs Temp 98.7 F 06/05/21 14:00 Pulse 77 06/05/21 14:00 Resp 20 06/05/21 14:00 BP 119/73 06/05/21 14:00 Pulse Ox 99 06/05/21 14:00 Body Mass Index 32.8 Objective Data Labs CBC & Chem 7: 06/05/21 08:17 06/05/21 08:17 Labs: Laboratory Results - last 24 hr 06/04/21 06/04/21 06/04/21 22:10 22:15 22:52 WBC 11.9 H RBC 3.58 L Hgb 9.4 L Hct 30.0 L MCV 83.8 MCH 26.3 L MCHC 31.3 RDW 13.3 Plt Count 204 MPV 10.7 Immature Gran % (Auto) 0.3 Neut % (Auto) 66.3 Lymph % (Auto) 21.1 Dawson % (Auto) 8.1 Eos % (Auto) 3.9 Baso % (Auto) 0.3 Lymph # (Auto) 2.5 Dawson # (Auto) 1.0 Eos # (Auto) 0.5 H Baso # (Auto) 0.0 Abs Immat Gran (auto) 0.04 H Absolute Neuts (auto) 7.9 Absolute Nucleated RBC 0.000 Nucleated RBC % (auto) 0.0 Whole Blood PT 12.8 Whole Blood INR 1.1 Sodium Potassium Chloride Carbon Dioxide Anion Gap BUN Creatinine Estim Creat Clear Calc Estimated GFR POC Glucose 221 H Random Glucose Fasting Glucose Calcium Phosphorus Total Bilirubin Direct Bilirubin AST ALT Alkaline Phosphatase Troponin I High Sens Total Protein Albumin Triglycerides Cholesterol LDL Cholesterol, Calc HDL Cholesterol Urine Color Urine Appearance Urine pH Ur Specific [place] Urine Protein Urine Glucose (UA) Urine Ketones Urine Blood Urine Nitrite Ur Leukocyte Esterase Urine RBC Urine WBC Ur Squamous Epith Cells Urine Bacteria Ethyl Alcohol COVID-19 ([facility]CIUS) COVID-19 Clin Com 06/04/21 06/04/21 06/04/21 22:52 22:52 22:55 WBC RBC Hgb Hct MCV MCH MCHC RDW Plt Count MPV Immature Gran % (Auto) Neut % (Auto) Lymph % (Auto) Dawson % (Auto) Eos % (Auto) Baso % (Auto) Lymph # (Auto) Dawson # (Auto) Eos # (Auto) Baso # (Auto) Abs Immat Gran (auto) Absolute Neuts (auto) Absolute Nucleated RBC Nucleated RBC % (auto) Whole Blood PT Whole Blood INR Sodium Potassium Chloride Carbon Dioxide Anion Gap BUN Creatinine Estim Creat Clear Calc Estimated GFR POC Glucose Random Glucose Fasting Glucose Calcium Phosphorus Total Bilirubin Direct Bilirubin AST ALT Alkaline Phosphatase Troponin I High Sens 23.4 H* Total Protein Albumin Triglycerides Cholesterol LDL Cholesterol, Calc HDL Cholesterol Urine Color Urine Appearance Urine pH Ur Specific [place] Urine Protein Urine Glucose (UA) Urine Ketones Urine Blood Urine Nitrite Ur Leukocyte Esterase Urine RBC Urine WBC Ur Squamous Epith Cells Urine Bacteria Ethyl Alcohol < 10 COVID-19 ([facility]US) Negative COVID-19 Clin Com See Note 06/04/21 06/05/21 06/05/21 23:33 00:59 02:56 WBC RBC Hgb Hct MCV MCH MCHC RDW Plt Count MPV Immature Gran % (Auto) Neut % (Auto) Lymph % (Auto) [place] % (Auto) Eos % (Auto) Baso % (Auto) Lymph # (Auto) [place] # (Auto) Eos # (Auto) Baso # (Auto) Abs Immat Gran (auto) Absolute Neuts (auto) Absolute Nucleated RBC Nucleated RBC % (auto) Whole Blood PT Whole Blood INR Sodium 133 L Potassium 6.7 H* D Chloride 108 Carbon Dioxide 18 L Anion Gap 14 BUN 52 H Creatinine 2.72 H Estim Creat Clear Calc TNP Estimated GFR 17 POC Glucose 195 H Random Glucose 205 H D Fasting Glucose Calcium 8.1 L Phosphorus Total Bilirubin 0.2 Direct Bilirubin < 0.2 AST 17 ALT 12 Alkaline Phosphatase 151 H Troponin I High Sens Total Protein 7.2 Albumin 3.4 L Triglycerides Cholesterol LDL Cholesterol, Calc HDL Cholesterol Urine Color YELLOW Urine Appearance CLEAR Urine pH 6.0 Ur Specific [place] 1.015 Urine Protein 2+ H Urine Glucose (UA) 100 H Urine Ketones NEG Urine Blood TRACE Urine Nitrite NEG Ur Leukocyte Esterase NEG Urine RBC 0-2 Urine WBC 0 Ur Squamous Epith Cells 2+ Urine Bacteria TRACE Ethyl Alcohol COVID-19 ([facility]) COVID-19 Clin Com 06/05/21 06/05/21 06/05/21 03:29 07:22 08:17 WBC RBC Hgb Hct MCV MCH MCHC RDW Plt Count MPV Immature Gran % (Auto) Neut % (Auto) Lymph % (Auto) [place] % (Auto) Eos % (Auto) Baso % (Auto) Lymph # (Auto) [place] # (Auto) Eos # (Auto) Baso # (Auto) Abs Immat Gran (auto) Absolute Neuts (auto) Absolute Nucleated RBC Nucleated RBC % (auto) Whole Blood PT Whole Blood INR Sodium 141 141 Potassium 5.2 H D 5.6 H Chloride 112 H 111 H Carbon Dioxide 20 L 21 L Anion Gap 14 15 BUN 50 H 49 H Creatinine 2.70 H 2.69 H Estim Creat Clear Calc 20.7 20.5 Estimated GFR 18 18 POC Glucose 92 Random Glucose 97 D Fasting Glucose 93 Calcium 9.1 D 8.8 Phosphorus 5.4 H Total Bilirubin 0.3 Direct Bilirubin AST 16 ALT 10 Alkaline Phosphatase 137 H Troponin I High Sens Total Protein 6.8 Albumin 3.4 L Triglycerides 134 Cholesterol 104 LDL Cholesterol, Calc 47 HDL Cholesterol 31 Urine Color Urine Appearance Urine pH Ur Specific [place] Urine Protein Urine Glucose (UA) Urine Ketones Urine Blood Urine Nitrite Ur Leukocyte Esterase Urine RBC Urine WBC Ur Squamous Epith Cells Urine Bacteria Ethyl Alcohol COVID-19 ([facility]) COVID-19 Clin Com 06/05/21 06/05/21 08:17 11:57 WBC 11.5 H RBC 3.64 L Hgb 9.5 L Hct 30.2 L MCV 83.0 MCH 26.1 L MCHC 31.5 RDW 13.2 Plt Count 219 MPV 10.6 Immature Gran % (Auto) 0.7 H Neut % (Auto) 67.7 Lymph % (Auto) 19.0 L [place] % (Auto) 8.0 Eos % (Auto) 4.3 H Baso % (Auto) 0.3 Lymph # (Auto) 2.2 [place] # (Auto) 0.9 Eos # (Auto) 0.5 H Baso # (Auto) 0.0 Abs Immat Gran (auto) 0.08 H Absolute Neuts (auto) 7.8 Absolute Nucleated RBC 0.000 Nucleated RBC % (auto) 0.0 Whole Blood PT Whole Blood INR Sodium Potassium Chloride Carbon Dioxide Anion Gap BUN Creatinine Estim Creat Clear Calc Estimated GFR POC Glucose 91 Random Glucose Fasting Glucose Calcium Phosphorus Total Bilirubin Direct Bilirubin AST ALT Alkaline Phosphatase Troponin I High Sens Total Protein Albumin Triglycerides Cholesterol LDL Cholesterol, Calc HDL Cholesterol Urine Color Urine Appearance Urine pH Ur Specific [place] Urine Protein Urine Glucose (UA) Urine Ketones Urine Blood Urine Nitrite Ur Leukocyte Esterase Urine RBC Urine WBC Ur Squamous Epith Cells Urine Bacteria Ethyl Alcohol COVID-19 ([facility]) COVID-19 Clin Com Quality Stroke Does the patient have a stroke diagnosis?: Yes Reason for No Anti-thrombotic by Day Two: N/A - Med Ordered VTE Prior VTE?: No VTE Risk Level:: Medical - low VTE Device Contraindication: N/A - Device Ordered VTE Drug Contraindication: N/A - Med Ordered
[2021-06-05] MEDS: Sodium Zirconium Cyclosilicate 10 GM POWD.PACK PO ×2 (15:15→23:48)
[2021-06-05 16:25] LABS: Glucose, Whole Blood 162 mg/dL (60-115)
[2021-06-05] MEDS: Insulin Lispro 100 UNIT/ML 3 ML VIAL SUBCUT ×2 (17:00→21:10)
[2021-06-05] MEDS: Sodium Bicarbonate 650 MG TABLET PO ×2 (17:01→21:06)
[2021-06-05] MEDS: hydrALAZINE HCl 10 MG TABLET PO (19:41)
[2021-06-05] MEDS: carvediloL 3.125 MG TABLET PO (21:06)
[2021-06-05] MEDS: Calcium + Vitamin D 250 MG TABLET 500 MG PO (21:06)
[2021-06-05 21:12] LABS: Glucose, Whole Blood 182 mg/dL (60-115)
[2021-06-05] MEDS: traZODone HCL 50 MG TABLET PO (23:48)
[2021-06-06] VITALS (14 sets, daily range): BP systolic 113–176; BP diastolic 36–95; PULSE 74–85; RESP 11–18; TEMP 36.6–36.8; O2SAT 94–97; BMI 33.3
[2021-06-06 05:16] LABS: MANUAL DIFF FLAG NO
[2021-06-06 05:18] LABS: Basophils Percent Auto 0.2 % (0-2); Eosinophils Absolute Auto 0.5 X10*3/uL (0.0-0.4); Eosinophils Percent Auto 4.6 % (0-4); Hematocrit 28.2 % (37-47); Hemoglobin 8.8 g/dl (12.0-16.0); Imm Gran Abs Auto 0.04 X10*3/uL (0.00-0.03); Imm Gran Pct Auto 0.4 % (0.0-0.4); Lymphocytes Absolute Auto 1.6 X10*3/uL (1.2-4.9); Lymphocytes Percent Auto 15.6 % (20-40); Mean Corpuscular HGB Conc 31.2 g/dl (31.0-35.0); Mean Corpuscular Hemoglobin 25.7 pg (27.0-33.0); Mean Corpuscular Volume 82.5 fL (80-98); Mean Platelet Volume 10.6 fL (9.4-12.3); Monocytes Absolute Auto 0.8 X10*3/uL (0.1-1.2); Monocytes Percent Auto 7.9 % (2-11); Neutrophils Absolute Auto 7.5 X10*3/uL (2.0-8.3); Neutrophils Percent Auto 71.3 % (45-73); Platelet Count 206 X10*3/uL (160-400); Red Blood Count 3.42 X10*6/uL (4.20-5.50); Red Cell Distribution Width 13.2 % (11.0-16.0); White Blood Count 10.5 X10*3/uL (4.8-10.8)
[2021-06-06 05:45] LABS: Alanine Aminotransferase 7 U/L (0-31); Albumin Level 3.1 g/dL (3.5-5.0); Alkaline Phosphatase 127 U/L (39-117); Anion Gap 16 (12-20); Aspartate Amino Transferase 14 U/L (5-31); Bilirubin Total 0.2 mg/dL (0.0-1.0); Blood Urea Nitrogen 50 mg/dL (9-16); Carbon Dioxide 19 mmol/L (22-29); Chloride 110 mmol/L (96-108); Creatinine Clr Calc Pharmacy 16.4; Estimated Glomerular Filt Rate 14; Glucose Random 104 mg/dL (60-115); Potassium 4.8 mmol/L (3.3-5.1); Sodium 140 mmol/L (135-145); Total Protein 6.2 g/dL (6.5-8.0)
[2021-06-06 06:03] LABS: Magnesium 1.9 mg/dL (1.6-2.6); Phosphorus 5.5 mg/dL (2.7-4.5)
[2021-06-06 07:36] LABS: Glucose, Whole Blood 93 mg/dL (60-115)
[2021-06-06] MEDS: Aspirin Enteric Coated 81 MG TABLET.DR PO ×2 (07:49→20:38)
[2021-06-06] MEDS: hydrALAZINE HCl 10 MG TABLET PO ×2 (08:08→20:37)
[2021-06-06] MEDS: Pantoprazole Sodium 40 MG/10 ML VIAL IVPUSH (08:08)
[2021-06-06] MEDS: Calcium + Vitamin D 250 MG TABLET 500 MG PO ×2 (08:08→20:34)
[2021-06-06] MEDS: Sodium Bicarbonate 650 MG TABLET PO ×4 (08:08→20:36)
[2021-06-06] MEDS: Clopidogrel Bisulfate 75 MG TABLET PO (08:08)
[2021-06-06] MEDS: Sertraline HCL 50 MG TABLET PO (08:09)
[2021-06-06] MEDS: carvediloL 3.125 MG TABLET PO ×2 (08:09→20:36)
[2021-06-06] MEDS: Escitalopram Oxalate 10 MG TABLET PO (08:09)
[2021-06-06] MEDS: Insulin Glargine,Hum.rec.anlog 100 UNIT/ML 10 ML VIAL 20 UNIT SUBCUT (09:18)
[2021-06-06] MEDS: Sodium Zirconium Cyclosilicate 10 GM POWD.PACK PO (09:56)
--- NOTE | 2021-06-06 10:05 | PM.CNNEP ---
History of Present Illness Reason for Consult Consult date: 06/06/21 Chief Complaint Chief complaint: Stroke post tpa [facility] Past Medical History Medical History Anemia Blister of finger without infection Cholecystectomy planned CKD (chronic kidney disease) Congestive heart failure Diabetes Diabetes mellitus Essential hypertension GERD (gastroesophageal reflux disease) Hernia HLD (hyperlipidemia) HTN (hypertension) Nonischemic cardiomyopathy Other and unspecified hyperlipidemia Type 2 diabetes mellitus with unspecified complications Family History Family History Father Lung cancer Mother Diabetes HTN (hypertension) Heart disease Sister Diabetes Heart disease Brother Heart disease Son Diabetes Daughter Diabetes Surgical History Surgical History H/O: hysterectomy History of esophagogastroduodenoscopy (EGD) Hx of colonoscopy Hx of eye surgery Social History Social History Household Members: Family Household Members Other:: grandchild Housing: Apartment Do you presently have visiting nurse or other home services: No Alcohol intake: never Patient Tobacco Use Status: Never used Tobacco Use of substances other than those prescribed or required for medical reasons: No Currently Displaying Signs/Symptoms of Drug Intoxication Withdrawal: No Have you been hit, kicked, punched, or otherwise hurt by someone within the past year? If so, by whom?: No Do you feel safe in your current relationship?: Yes Is there a partner from a previous relationship who is making you feel unsafe now?: No Are you made to feel afraid or neglected: No Advance Directives: No Advance Directives Information Provided: Yes Do you have thoughts of harming others: None Do you have a plan to hurt others: No Plan Recently lost weight without trying: No Nutrition Risks: No Nutritional Risk Patient : No : No service: No Current occupational status: disabled Meds Allergies Allergy/AdvReac Type Severity Reaction Status Date / Time latex [LATEX] Allergy Intermediate ITCHY Verified 02/25/21 09:16 Active Medications: Current Medications Generic Name Dose Route Start Last Admin Trade Name Freq PRN Reason Stop Dose Admin Aspirin 81 mg 06/06/21 06:00 06/06/21 07:49 Aspirin Enteric Coated 81 Mg Tablet.Dr PO 81 mg BEDTIME MATTY Administration Atorvastatin Calcium 80 mg 06/06/21 21:00 Atorvastatin Calcium 80 Mg Tablet PO BEDTIME MATTY Calcium Carbonate/Cholecalciferol 500 mg 06/05/21 21:00 06/06/21 08:08 Calcium + Vitamin D 250 Mg Tablet PO 500 mg BID MATTY Administration Carvedilol 3.125 mg 06/05/21 09:00 06/06/21 08:09 Carvedilol 3.125 Mg Tablet PO 3.125 mg BID MATTY Administration Protocol Clopidogrel Bisulfate 75 mg 06/06/21 09:00 06/06/21 08:08 Clopidogrel Bisulfate 75 Mg Tablet PO 75 mg DAILY MATTY Administration Dextrose 25 gm 06/05/21 00:26 Dextrose 50 % 25 Gm/50 Ml Vial IVPUSH Q15M PRN per Hypoglycemia Standing Ord. Protocol Escitalopram Oxalate 10 mg 06/05/21 09:00 06/06/21 08:09 Escitalopram Oxalate 10 Mg Tablet PO 10 mg DAILY MATTY Administration Glucose 15 gm 06/05/21 00:26 Glucose Gel 15 Gm Gel..Gram. PO Q15M PRN per Hypoglycemia Standing Ord. Protocol Hydralazine HCl 10 mg 06/05/21 21:00 06/06/21 08:08 Hydralazine Hcl 10 Mg Tablet PO 10 mg BID MATTY Administration Protocol Insulin Glargine 20 unit 06/05/21 09:00 06/06/21 09:18 Insulin Glargine,Hum.Rec.Anlog 100 Unit/Ml 10 Ml Vial SUBCUT 20 unit DAILY MATTY Administration Insulin Human Lispro 0 unit 06/05/21 07:30 06/06/21 07:35 Insulin Lispro 100 Unit/Ml 3 Ml Vial SUBCUT Not Given QIDACHS [facility] Protocol Pantoprazole Sodium 40 mg 06/05/21 09:00 06/06/21 08:08 Pantoprazole Sodium 40 Mg/10 Ml Vial IVPUSH 40 mg DAILY MATTY Administration Sertraline HCl 50 mg 06/05/21 09:00 06/06/21 08:09 Sertraline Hcl 50 Mg Tablet PO 50 mg DAILY MATTY Administration Sodium Bicarbonate 650 mg 06/05/21 17:00 06/06/21 08:08 Sodium Bicarbonate 650 Mg Tablet PO 650 mg QID MATTY Administration Sodium Zirconium Cyclosilicate 10 gm 06/06/21 09:00 06/06/21 09:56 Sodium Zirconium Cyclosilicate 10 Gm Powd.Pack PO 10 gm DAILY MATTY Administration Trazodone HCl 50 mg 06/05/21 21:00 06/05/21 23:48 Trazodone Hcl 50 Mg Tablet PO 50 mg BEDTIME MATTY Administration Home Medications Medication Instructions Recorded Confirmed Last Taken Type aspirin 81 mg tablet,delayed 81 mg PO BEDTIME 12/08/20 06/04/21 Unknown History release calcium carbonate 500 mg (1,250 1 tab PO BID 12/08/20 06/04/21 Unknown History mg)-vitamin D3 400 unit tablet citalopram 20 mg tablet 20 mg PO DAILY 12/08/20 06/04/21 Unknown History gabapentin 100 mg capsule 100 mg PO BID 12/08/20 06/04/21 Unknown History insulin aspart U-100 100 unit/mL 8 - 24 unit SUBCUT TID 12/08/20 06/04/21 Unknown History (3 mL) subcutaneous pen insulin detemir U-100 100 unit/mL 64 unit SUBCUT DAILY 12/08/20 06/04/21 Unknown History (3 mL) subcutaneous pen magnesium oxide 400 mg (241.3 mg 400 mg PO BID 12/08/20 06/04/21 Unknown History magnesium) tablet trazodone 50 mg tablet 50 mg PO BEDTIME 12/08/20 06/04/21 Unknown History rosuvastatin 20 mg tablet 1 tab PO QPM 06/04/21 06/04/21 Unknown History sertraline 50 mg tablet 1 tab PO QAM 06/04/21 06/04/21 Unknown History Physical Exam Vital Signs: Last Vital Signs Temp 98.1 F 06/06/21 07:41 Pulse 82 06/06/21 08:09 Resp 18 06/06/21 07:41 BP 137/54 L 06/06/21 08:09 Pulse Ox 97 06/06/21 07:41 Body Mass Index 33.3 Neuro Other: She was alert and awake with normal spontaneity of speech fluency comprehension and affect. Many teeth were missing and that was affecting her speech. Into was performed with the help of an leather fitter. Pupils were about 3-4 mm round reactive. Extraocular muscles were intact. Visual wilkes are full. Face revealed mild right-sided facial flatness. Arthritic changes were noted in hands. She had difficulty lifting her left arm against gravity but she was able to lift it up. There was mild weakness of left hand. 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 Right leg strength against gravity was intact. Plantar was flexor. Results Lab Results Result Diagrams: 06/06/21 05:09 06/06/21 05:09 Lab results: Chemistry 06/04/21 06/05/21 06/05/21 23:33 03:29 08:17 Sodium 133 L 141 141 Potassium 6.7 H* D 5.2 H D 5.6 H Carbon Dioxide 18 L 20 L 21 L BUN 52 H 50 H 49 H Creatinine 2.72 H 2.70 H 2.69 H Calcium 8.1 L 9.1 D 8.8 Phosphorus 5.4 H 06/06/21 06/06/21 05:09 05:09 Sodium Cancelled 140 Potassium Cancelled 4.8 Carbon Dioxide Cancelled 19 L BUN Cancelled 50 H Creatinine Cancelled 3.36 H Calcium Cancelled 8.0 L D Phosphorus Cancelled 5.5 H Hematology 06/04/21 06/05/21 06/06/21 22:52 08:17 05:09 WBC 11.9 H 11.5 H 10.5 Hgb 9.4 L 9.5 L 8.8 L Plt Count 204 219 206 Urinalysis 06/05/21 02:56 Urine Color YELLOW Urine Appearance CLEAR Urine pH 6.0 Ur Specific [place] 1.015 Urine Protein 2+ H Urine Glucose (UA) 100 H Urine Ketones NEG Urine Blood TRACE Urine Nitrite NEG Ur Leukocyte Esterase NEG Urine RBC 0-2 Urine WBC 0 Ur Squamous Epith Cells 2+ Assessment and Plan (1) Cerebral infarction: Status: Acute 66 years old woman with underlying obesity, uncontrolled hypertension, renal insufficiency, and diabetes who presented with sudden onset of left-sided numbness and weakness involving face tongue arm hand and body. Her examination was partly limited because of previous partial leg amputation on the left side. With signs of hemiparesis noted in emergency room in acute setting, she was appropriately treated with intravenous tPA. She previously had significant amount of microvascular disease and atherothrombotic left subcortical infarct. This time infarct was probably on the other side and of similar nature. Following is recommended: 1. No blood thinner for 24 hours after tPA. After that start aspirin 81 mg daily and Plavix 75 mg daily for a month. After a month, fund of these agents could be drop. 2. Blood pressure control 3. Sugar control 4. Continue statin 5. Appropriate investigation and treatment of anemia numbers 6. Proper per patient's and family education about stroke and its prevention 7. PT OT (2) GIL (acute kidney injury): Status: Acute This is a 66-year-old lady followed by Dr. Jimenez for CKD she had an episode of GIL January 2020 where her creatinine went up to 4.2 October her creatinine was down to her baseline of 2.8 she tends to be hyperkalemic and is treated with Veltassa she is now admitted to [facility] with a stroke and received TPA now in the ICU her medical problems include diabetes hypertension hyperlipidemia CKD nonischemic cardiomyopathy with congestive heart failure peripheral vascular disease left BKA amputations right fingers anemia secondary to her CKD her creatinine was baseline 2.7 on admission potassium 6.7 today her hemoglobin is 8.4 her creatinine is 3.36 up from yesterday of 2.69 potassium is down to 4.8 her urine shows 2+ protein which is chronic specific gravity of 1.015 she did receive a CTA on 04 June urine output is 300 cc overnight I suspect she has contrast-induced nephropathy she is nonoliguric at the present time I have ordered urine studies on her I would suggest we give her some gentle IV fluids of normal saline (3) CKD (chronic kidney disease) stage 3, GFR 30-59 ml/min: Status: Acute (4) Acute hyperkalemia: Status: Acute Procedures Date of Service Date of Service: 06/06/21
--- NOTE | 2021-06-06 10:33 | P.PNIM_ITS ---
Subjective Subjective Date of Service: 06/06/21 Interval History: still with left hand weakness and left facial numbness Cardiovascular Cardiovascular: Reports no additional cardiovascular complaints Respiratory Respiratory: Reports no additional respiratory complaints Physical Exam Vital Signs: Vital Signs: Last Vital Signs Temp 98.1 F 06/06/21 07:41 Pulse 75 06/06/21 10:00 Resp 16 06/06/21 10:00 BP 146/65 H 06/06/21 10:00 Pulse Ox 97 06/06/21 07:41 Body Mass Index 33.3 General: AO X 3, anxious Resp: CTA bilateral CVS: S1,S2,RRR GI: soft, non tender, non distended Neuro: left hand mild weakness, left face and arm decreased sensation, left bka Psych: appropriate affect Objective Data Active Medications Aspirin (Aspirin Enteric Coated 81 Mg Tablet.Dr) 81 mg PO BEDTIME [facility] Last Admin: 06/06/21 07:49 Dose: 81 mg Documented by: IVAN Atorvastatin Calcium (Atorvastatin Calcium 80 Mg Tablet) 80 mg PO BEDTIME [facility] Calcium Carbonate/Cholecalciferol (Calcium + Vitamin D 250 Mg Tablet) 500 mg PO BID [facility] Last Admin: 06/06/21 08:08 Dose: 500 mg Documented by: IVAN Carvedilol (Carvedilol 3.125 Mg Tablet) 3.125 mg PO BID [facility]; Protocol Last Admin: 06/06/21 08:09 Dose: 3.125 mg Documented by: IVAN Clopidogrel Bisulfate (Clopidogrel Bisulfate 75 Mg Tablet) 75 mg PO DAILY [facility] Last Admin: 06/06/21 08:08 Dose: 75 mg Documented by: IVAN Dextrose (Dextrose 50 % 25 Gm/50 Ml Vial) 25 gm IVPUSH Q15M PRN; Protocol PRN Reason: per Hypoglycemia Standing Ord. Escitalopram Oxalate (Escitalopram Oxalate 10 Mg Tablet) 10 mg PO DAILY [facility] Last Admin: 06/06/21 08:09 Dose: 10 mg Documented by: IVAN Glucose (Glucose Gel 15 Gm Gel..Gram.) 15 gm PO Q15M PRN; Protocol PRN Reason: per Hypoglycemia Standing Ord. Hydralazine HCl (Hydralazine Hcl 10 Mg Tablet) 10 mg PO BID [facility]; Protocol Last Admin: 06/06/21 08:08 Dose: 10 mg Documented by: IVAN Insulin Glargine (Insulin Glargine,Hum.Rec.Anlog 100 Unit/Ml 10 Ml Vial) 20 unit SUBCUT DAILY [facility] Last Admin: 06/06/21 09:18 Dose: 20 unit Documented by: IVAN Insulin Human Lispro (Insulin Lispro 100 Unit/Ml 3 Ml Vial) 0 unit SUBCUT QIDACHS [facility]; Protocol Last Admin: 06/06/21 07:35 Dose: Not Given Documented by: IVAN Non-Admin Reason: No Insulin Coverage Comments: POC 93 Pantoprazole Sodium (Pantoprazole Sodium 40 Mg/10 Ml Vial) 40 mg IVPUSH DAILY [facility] Last Admin: 06/06/21 08:08 Dose: 40 mg Documented by: IVAN Sertraline HCl (Sertraline Hcl 50 Mg Tablet) 50 mg PO DAILY [facility] Last Admin: 06/06/21 08:09 Dose: 50 mg Documented by: IVAN Sodium Bicarbonate (Sodium Bicarbonate 650 Mg Tablet) 650 mg PO QID [facility] Last Admin: 06/06/21 08:08 Dose: 650 mg Documented by: IVAN Sodium Zirconium Cyclosilicate (Sodium Zirconium Cyclosilicate 10 Gm Powd.Pack) 10 gm PO DAILY [facility] Last Admin: 06/06/21 09:56 Dose: 10 gm Documented by: IVAN Trazodone HCl (Trazodone Hcl 50 Mg Tablet) 50 mg PO BEDTIME [facility] Last Admin: 06/05/21 23:48 Dose: 50 mg Documented by: DANIEL Labs CBC & Chem 7: 06/06/21 05:09 06/06/21 05:09 Labs: Laboratory Results - last 24 hr 06/05/21 06/05/21 06/05/21 11:57 16:22 21:05 MCV MCH MCHC RDW Plt Count MPV Immature Gran % (Auto) Neut % (Auto) Lymph % (Auto) [place] % (Auto) Eos % (Auto) Baso % (Auto) Lymph # (Auto) [place] # (Auto) Eos # (Auto) Baso # (Auto) Abs Immat Gran (auto) Absolute Neuts (auto) Absolute Nucleated RBC Nucleated RBC % (auto) Anion Gap Estim Creat Clear Calc Estimated GFR POC Glucose 91 162 H 182 H Random Glucose Calcium Phosphorus Magnesium Total Bilirubin AST ALT Alkaline Phosphatase Total Protein Albumin 06/06/21 06/06/21 06/06/21 05:09 05:09 05:09 MCV 82.5 MCH 25.7 L MCHC 31.2 RDW 13.2 Plt Count 206 MPV 10.6 Immature Gran % (Auto) 0.4 Neut % (Auto) 71.3 Lymph % (Auto) 15.6 L [place] % (Auto) 7.9 Eos % (Auto) 4.6 H Baso % (Auto) 0.2 Lymph # (Auto) 1.6 [place] # (Auto) 0.8 Eos # (Auto) 0.5 H Baso # (Auto) 0.0 Abs Immat Gran (auto) 0.04 H Absolute Neuts (auto) 7.5 Absolute Nucleated RBC 0.000 Nucleated RBC % (auto) 0.0 Anion Gap Cancelled 16 Estim Creat Clear Calc Cancelled 16.4 Estimated GFR Cancelled 14 POC Glucose Random Glucose Cancelled 104 Calcium Cancelled 8.0 L D Phosphorus Cancelled 5.5 H Magnesium Cancelled 1.9 Total Bilirubin 0.2 AST 14 ALT 7 Alkaline Phosphatase 127 H Total Protein 6.2 L Albumin 3.1 L 06/06/21 07:34 MCV MCH MCHC RDW Plt Count MPV Immature Gran % (Auto) Neut % (Auto) Lymph % (Auto) [place] % (Auto) Eos % (Auto) Baso % (Auto) Lymph # (Auto) [place] # (Auto) Eos # (Auto) Baso # (Auto) Abs Immat Gran (auto) Absolute Neuts (auto) Absolute Nucleated RBC Nucleated RBC % (auto) Anion Gap Estim Creat Clear Calc Estimated GFR POC Glucose 93 Random Glucose Calcium Phosphorus Magnesium Total Bilirubin AST ALT Alkaline Phosphatase Total Protein Albumin Assessment and Plan (1) GIL (acute kidney injury): Status: Acute (2) Cerebral infarction: Status: Acute Assessment and Plan: 66F presented with left sided weakness and numbness, given Tpa, mri showed small acute right thalamic infarct. CTA unremarkable, echo with normal EF grade 2 diastolic dysfunction, mild left atrial enlargement, mild , mild MR, severe pulmonary hypertension. she was monitored in ICU for 24 hours and downgraded to telemetry. acute right thalamic cva s/p tpa evening of 06/04 started on dual antiplatelet for 30 days then decrease to single antiplatelet high intensity statin PT/OT will likely need acute rehab GIL on CKD IV with hyperkalemia hyperkalemia improved on [facility] follow up nephro DM insulin HTN hydralazine coreg dvt prophylaxis - tpa >24 hrs ago, will start lovenox 30mg daily (decreased for CrCl) full code Quality Stroke Does the patient have a stroke diagnosis?: Yes Reason for No Anti-thrombotic by Day Two: N/A - Med Ordered VTE Prior VTE?: No VTE Risk Level:: Medical - low VTE Device Contraindication: N/A - Device Ordered VTE Drug Contraindication: N/A - Med Ordered
--- NOTE | 2021-06-06 11:26 | MHC.CM.PN ---
Attempted to meet with patient in regards to discharge planning. Patient is currently sleeping. No family present. Will attempt to meet again. Per Adrianne FIELDS, patient received Jose & Jose Covid vaccine and will need short term rehab. Continue to monitor for d/c needs.
[2021-06-06 11:48] LABS: Glucose, Whole Blood 155 mg/dL (60-115)
[2021-06-06] MEDS: Insulin Lispro 100 UNIT/ML 3 ML VIAL SUBCUT ×3 (11:50→20:40)
[2021-06-06 16:56] LABS: Glucose, Whole Blood 167 mg/dL (60-115)
[2021-06-06 17:54] LABS: Osmolality Urine 434 mosm/kg (373-1093)
[2021-06-06 18:06] LABS: Creatinine Urine 66.64 mg/dL
--- NOTE | 2021-06-06 18:17 | PC.NURSE ---
AFEBRILE. VSS. USED COKE WORKER FOR ASSESSMENTS. KNOWS NAME/, SHE'S AT A HOSPITAL, ITS , AND HAD NUMBNESS AND TINGLING TO FACE. VAGUE, BUT APPROPRIATE ANSWERS. LEFT WORKERS COMPENSATION CLAIMS EXAMINER SLIGHTLY WEAKER THAN RIGHT. EXTENDED ARMS EQUAL. VOIDS IN BEDPAN, OCCASIONALLY INCONTINENT OF STOOL. SET UP FOR MEALS, BUT ABLE TO FEED HERSELF. CLOSELY MONITORED SWALLOWING. NO ISSUES NOTED. BATHED, Q2HR REPO, BARRIER CREAM AND PILLOWS UTILIZED.
[2021-06-06 20:28] LABS: Glucose, Whole Blood 177 mg/dL (60-115)
[2021-06-06] MEDS: Atorvastatin Calcium 80 MG TABLET PO (20:37)
[2021-06-06] MEDS: traZODone HCL 50 MG TABLET PO (20:37)
[2021-06-07] VITALS (10 sets, daily range): BP systolic 100–156; BP diastolic 32–77; PULSE 72–81; RESP 14–18; TEMP 36.7–37.2; O2SAT 95–99; BMI 33.5
[2021-06-07 05:21] LABS: Hematocrit 26.6 % (37-47); Hemoglobin 8.4 g/dl (12.0-16.0); Mean Corpuscular HGB Conc 31.6 g/dl (31.0-35.0); Mean Corpuscular Hemoglobin 25.8 pg (27.0-33.0); Mean Corpuscular Volume 81.8 fL (80-98); Mean Platelet Volume 10.5 fL (9.4-12.3); Platelet Count 197 X10*3/uL (160-400); Red Blood Count 3.25 X10*6/uL (4.20-5.50); Red Cell Distribution Width 13.1 % (11.0-16.0); White Blood Count 11.6 X10*3/uL (4.8-10.8)
[2021-06-07 05:46] LABS: Anion Gap 14 (12-20); Blood Urea Nitrogen 52 mg/dL (9-16); Calcium 7.9 mg/dL (8.4-10.2); Carbon Dioxide 21 mmol/L (22-29); Chloride 109 mmol/L (96-108); Creatinine Clr Calc Pharmacy 13.9; Estimated Glomerular Filt Rate 11; Glucose Fasting 79 mg/dL (60-99); Potassium 4.2 mmol/L (3.3-5.1); Sodium 140 mmol/L (135-145)
[2021-06-07] MEDS: 0.9 % Sodium Chloride 1,000 ML 75 ML IVCONT ×2 (07:51→20:38)
[2021-06-07 08:01] LABS: Glucose, Whole Blood 88 mg/dL (60-115)
--- NOTE | 2021-06-07 08:11 | PM.PNNEP ---
Subjective Subjective Date of Service: 06/07/21 Interval history: stable overnight Physical Exam Vital Signs: Vital Signs: Last Vital Signs Temp 98.3 F 06/07/21 07:30 Pulse 73 06/07/21 07:30 Resp 14 06/07/21 07:30 BP 137/51 L 06/07/21 07:30 Pulse Ox 96 06/07/21 07:30 Body Mass Index 33.5 Neuro: Other: She was alert and awake with normal spontaneity of speech fluency comprehension and affect. Many teeth were missing and that was affecting her speech. Into was performed with the help of an refrigeration houseman. Pupils were about 3-4 mm round reactive. Extraocular muscles were intact. Visual wilkes are full. Face revealed mild right-sided facial flatness. Arthritic changes were noted in hands. She had difficulty lifting her left arm against gravity but she was able to lift it up. There was mild weakness of left hand. 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 Right leg strength against gravity was intact. Plantar was flexor. Objective Data Labs CBC & Chem 7: 06/07/21 05:10 06/07/21 05:10 Labs: Laboratory Results - last 24 hr 06/06/21 06/06/21 06/06/21 11:44 16:52 17:23 WBC RBC Hgb Hct MCV MCH MCHC RDW Plt Count MPV Absolute Nucleated RBC Nucleated RBC % (auto) Sodium Potassium Chloride Carbon Dioxide Anion Gap BUN Creatinine Estim Creat Clear Calc Estimated GFR POC Glucose 155 H 167 H Fasting Glucose Calcium Urine Osmolality Ur Random Sodium 81.0 Urine Creatinine 66.64 Urine Microalbumin 1803.0 Microalb/Creat Ratio 2705.5 06/06/21 06/06/21 06/07/21 17:23 20:25 05:10 WBC 11.6 H RBC 3.25 L Hgb 8.4 L Hct 26.6 L MCV 81.8 MCH 25.8 L MCHC 31.6 RDW 13.1 Plt Count 197 MPV 10.5 Absolute Nucleated RBC 0.000 Nucleated RBC % (auto) 0.0 Sodium Potassium Chloride Carbon Dioxide Anion Gap BUN Creatinine Estim Creat Clear Calc Estimated GFR POC Glucose 177 H Fasting Glucose Calcium Urine Osmolality 434 Ur Random Sodium Urine Creatinine Urine Microalbumin Microalb/Creat Ratio 06/07/21 06/07/21 05:10 07:25 WBC RBC Hgb Hct MCV MCH MCHC RDW Plt Count MPV Absolute Nucleated RBC Nucleated RBC % (auto) Sodium 140 Potassium 4.2 Chloride 109 H Carbon Dioxide 21 L Anion Gap 14 BUN 52 H Creatinine 4.01 H* Estim Creat Clear Calc 13.9 Estimated GFR 11 POC Glucose 88 Fasting Glucose 79 Calcium 7.9 L Urine Osmolality Ur Random Sodium Urine Creatinine Urine Microalbumin Microalb/Creat Ratio Procedures Date of Service Date of Service: 06/07/21 Assessment & Plan Assessment and plan (1) GIL (acute kidney injury): Status: Acute (2) Cerebral infarction: Status: Acute Assessment and Plan: 66F presented with left sided weakness and numbness, given Tpa, mri showed small acute right thalamic infarct. CTA unremarkable, echo with normal EF grade 2 diastolic dysfunction, mild left atrial enlargement, mild , mild MR, severe pulmonary hypertension. acute right thalamic cva s/p tpa evening of 06/04 GIL on CKD IV with hyperkalemia hyperkalemia improved on lokelma her UO is low and her creat is rising likely MOR from CTA hope to see recovery prior to need for HD Progress Note: Quality Stroke Does the patient have a stroke diagnosis?: Yes Reason for No Anti-thrombotic by Day Two: N/A - Med Ordered
[2021-06-07] MEDS: Calcium + Vitamin D 250 MG TABLET 500 MG PO ×2 (09:21→20:39)
[2021-06-07] MEDS: Enoxaparin Sodium 30 MG/0.3 ML SYRINGE SUBCUT (09:21)
[2021-06-07] MEDS: Insulin Glargine,Hum.rec.anlog 100 UNIT/ML 10 ML VIAL 20 UNIT SUBCUT (09:21)
[2021-06-07] MEDS: Pantoprazole Sodium 40 MG/10 ML VIAL IVPUSH (09:21)
[2021-06-07] MEDS: Escitalopram Oxalate 10 MG TABLET PO (09:22)
[2021-06-07] MEDS: Clopidogrel Bisulfate 75 MG TABLET PO (09:22)
[2021-06-07] MEDS: Sodium Bicarbonate 650 MG TABLET PO ×4 (09:22→20:38)
[2021-06-07] MEDS: Sodium Zirconium Cyclosilicate 10 GM POWD.PACK PO (09:22)
[2021-06-07] MEDS: Sertraline HCL 50 MG TABLET PO (09:22)
[2021-06-07] MEDS: carvediloL 3.125 MG TABLET PO ×2 (09:22→20:39)
[2021-06-07] MEDS: hydrALAZINE HCl 10 MG TABLET PO ×2 (09:22→20:39)
--- NOTE | 2021-06-07 10:50 | HO.PM.IMPN ---
Subjective Subjective Date of Service: 06/07/21 Interval History: left sided weakness and numbness significantly improved Cardiovascular Cardiovascular: Reports no additional cardiovascular complaints Respiratory Respiratory: Reports no additional respiratory complaints Physical Exam Vital Signs: Vital Signs: Last Vital Signs Temp 98.3 F 06/07/21 07:30 Pulse 73 06/07/21 09:22 Resp 14 06/07/21 07:30 BP 137/51 L 06/07/21 09:22 Pulse Ox 96 06/07/21 07:30 Body Mass Index 33.5 General: AO X 3, NAD Resp:? CTA bilateral CVS: S1,S2,RRR GI: soft, non tender, non distended Neuro:? left sided defeciencies no longer appreciated left bka Psych: appropriate affect Objective Data Active Medications Aspirin (Aspirin Enteric Coated 81 Mg Tablet.Dr) 81 mg PO BEDTIME [facility] Last Admin: 06/06/21 20:38 Dose: 81 mg Documented by: ABY Atorvastatin Calcium (Atorvastatin Calcium 80 Mg Tablet) 80 mg PO BEDTIME [facility] Last Admin: 06/06/21 20:37 Dose: 80 mg Documented by: ABY Calcium Carbonate/Cholecalciferol (Calcium + Vitamin D 250 Mg Tablet) 500 mg PO BID [facility] Last Admin: 06/07/21 09:21 Dose: 500 mg Documented by: WALE Carvedilol (Carvedilol 3.125 Mg Tablet) 3.125 mg PO BID [facility]; Protocol Last Admin: 06/07/21 09:22 Dose: 3.125 mg Documented by: WALE Clopidogrel Bisulfate (Clopidogrel Bisulfate 75 Mg Tablet) 75 mg PO DAILY [facility] Last Admin: 06/07/21 09:22 Dose: 75 mg Documented by: WALE Dextrose (Dextrose 50 % 25 Gm/50 Ml Vial) 25 gm IVPUSH Q15M PRN; Protocol PRN Reason: per Hypoglycemia Standing Ord. Enoxaparin Sodium (Enoxaparin Sodium 30 Mg/0.3 Ml Syringe) 30 mg SUBCUT Q24H [facility] Last Admin: 06/07/21 09:21 Dose: 30 mg Documented by: WALE Escitalopram Oxalate (Escitalopram Oxalate 10 Mg Tablet) 10 mg PO DAILY [facility] Last Admin: 06/07/21 09:22 Dose: 10 mg Documented by: WALE Glucose (Glucose Gel 15 Gm Gel..Gram.) 15 gm PO Q15M PRN; Protocol PRN Reason: per Hypoglycemia Standing Ord. Hydralazine HCl (Hydralazine Hcl 10 Mg Tablet) 10 mg PO BID [facility]; Protocol Last Admin: 06/07/21 09:22 Dose: 10 mg Documented by: WALE Sodium Chloride (Ns) 1,000 mls @ 75 mls/hr IVCONT .[id number] [facility] Last Infusion: 06/07/21 09:29 Dose: 75 mls/hr Documented by: WALE Insulin Glargine (Insulin Glargine,Hum.Rec.Anlog 100 Unit/Ml 10 Ml Vial) 20 unit SUBCUT DAILY [facility] Last Admin: 06/07/21 09:21 Dose: 20 unit Documented by: WALE Insulin Human Lispro (Insulin Lispro 100 Unit/Ml 3 Ml Vial) 0 unit SUBCUT QIDACHS [facility]; Protocol Last Admin: 06/07/21 07:38 Dose: Not Given Documented by: WALE Non-Admin Reason: No Insulin Coverage Pantoprazole Sodium (Pantoprazole Sodium 40 Mg/10 Ml Vial) 40 mg IVPUSH DAILY [facility] Last Admin: 06/07/21 09:21 Dose: 40 mg Documented by: WALE Sertraline HCl (Sertraline Hcl 50 Mg Tablet) 50 mg PO DAILY [facility] Last Admin: 06/07/21 09:22 Dose: 50 mg Documented by: WALE Sodium Bicarbonate (Sodium Bicarbonate 650 Mg Tablet) 650 mg PO QID [facility] Last Admin: 06/07/21 09:22 Dose: 650 mg Documented by: WALE Sodium Zirconium Cyclosilicate (Sodium Zirconium Cyclosilicate 10 Gm Powd.Pack) 10 gm PO DAILY [facility] Last Admin: 06/07/21 09:22 Dose: 10 gm Documented by: WALE Trazodone HCl (Trazodone Hcl 50 Mg Tablet) 50 mg PO BEDTIME [facility] Last Admin: 06/06/21 20:37 Dose: 50 mg Documented by: ABY Labs CBC & Chem 7: 06/07/21 05:10 06/07/21 05:10 Labs: Laboratory Results - last 24 hr 06/06/21 06/06/21 06/06/21 11:44 16:52 17:23 MCV MCH MCHC RDW Plt Count MPV Absolute Nucleated RBC Nucleated RBC % (auto) Anion Gap Estim Creat Clear Calc Estimated GFR POC Glucose 155 H 167 H Fasting Glucose Calcium Urine Osmolality Ur Random Sodium 81.0 Urine Creatinine 66.64 Urine Microalbumin 1803.0 Microalb/Creat Ratio 2705.5 06/06/21 06/06/21 06/07/21 17:23 20:25 05:10 MCV 81.8 MCH 25.8 L MCHC 31.6 RDW 13.1 Plt Count 197 MPV 10.5 Absolute Nucleated RBC 0.000 Nucleated RBC % (auto) 0.0 Anion Gap Estim Creat Clear Calc Estimated GFR POC Glucose 177 H Fasting Glucose Calcium Urine Osmolality 434 Ur Random Sodium Urine Creatinine Urine Microalbumin Microalb/Creat Ratio 06/07/21 06/07/21 05:10 07:25 MCV MCH MCHC RDW Plt Count MPV Absolute Nucleated RBC Nucleated RBC % (auto) Anion Gap 14 Estim Creat Clear Calc 13.9 Estimated GFR 11 POC Glucose 88 Fasting Glucose 79 Calcium 7.9 L Urine Osmolality Ur Random Sodium Urine Creatinine Urine Microalbumin Microalb/Creat Ratio Assessment and Plan (1) Cerebral infarction: Status: Acute (2) Acute hyperkalemia: Status: Acute (3) Acute on chronic renal failure: Status: Acute (4) Diabetes mellitus: Status: Acute Assessment and Plan: 66F presented with left sided weakness and numbness, given Tpa, mri showed small acute right thalamic infarct. CTA unremarkable, echo with normal EF grade 2 diastolic dysfunction, mild left atrial enlargement, mild , mild MR, severe pulmonary hypertension. she was monitored in ICU for 24 hours and downgraded to telemetry. acute right thalamic cva s/p tpa evening of 06/04 started on dual antiplatelet 06/06 for 30 days then decrease to single antiplatelet high intensity statin PT/OT plan for eventual acute rehab GIL on CKD IV with hyperkalemia hyperkalemia improved on lokelma started on NS, monitor nephro following DM insulin HTN hydralazine coreg dvt prophylaxis -lovenox full code Quality Stroke Does the patient have a stroke diagnosis?: Yes Reason for No Anti-thrombotic by Day Two: N/A - Med Ordered VTE Prior VTE?: No VTE Risk Level:: Medical - low VTE Device Contraindication: N/A - Device Ordered VTE Drug Contraindication: N/A - Med Ordered
[2021-06-07 12:16] LABS: Glucose, Whole Blood 139 mg/dL (60-115)
--- NOTE | 2021-06-07 15:20 | MHC.CM.PN ---
Addendum entered by Mireya Guzmán 06/07/21 15:26: PATIENT HAS BEEN VACCINATED AGAINST COVID19 FOR AT LEAST SIX MONTHS ACCORDING TO SPENCER Original Note: AFTER REVIEW OF CHART, CASE MANAGEMENT CONTACTED HCP/DAUGHTER, SPENCER ([phone]) FOR ASSESSMENT AND DC NEEDS CONVERSATION. HCP ON FILE AND VERIFIED. DAUGHTER IS PATIENT'S EARLY CHILDHOOD EDUCATION WORKER. THERE IS NO [facility] AGENCY IN THE HOME. PATIENT MOBILIZES WITH AN ELECTRIC WHEEL CHAIR AND DAUGHTER EXPRESSES CONCERNS ABOUT PATIENT'S ABILITY TO USE THIS DEVICE SECONDARY TO STROKE. SPENCER IS ASKING FOR A REFERRAL TO [facility] (NOW PLACED) SHE IS AWARE OF ACUTE REHAB SERVICES; HOWEVER, WANTS A FACILITY IN [place]. CASE MANAGEMENT TO CONTINUE TO FOLLOW FOR DC PLANS. IMM 06/07 IN CHART.
[2021-06-07] MEDS: Insulin Lispro 100 UNIT/ML 3 ML VIAL SUBCUT ×2 (16:21→20:38)
[2021-06-07 17:44] LABS: Glucose, Whole Blood 174 mg/dL (60-115)
[2021-06-07 20:37] LABS: Glucose, Whole Blood 178 mg/dL (60-115)
[2021-06-07] MEDS: traZODone HCL 50 MG TABLET PO (20:38)
[2021-06-07] MEDS: Atorvastatin Calcium 80 MG TABLET PO (20:38)
[2021-06-07] MEDS: Aspirin Enteric Coated 81 MG TABLET.DR PO (20:38)
[2021-06-08] VITALS (13 sets, daily range): BP systolic 143–190; BP diastolic 54–93; PULSE 73–84; RESP 15–20; TEMP 36.1–37.1; O2SAT 91–99; BMI 34.0
[2021-06-08 05:28] LABS: Hematocrit 26.2 % (37-47); Hemoglobin 8.3 g/dl (12.0-16.0); Mean Corpuscular HGB Conc 31.7 g/dl (31.0-35.0); Mean Corpuscular Volume 82.1 fL (80-98); Mean Platelet Volume 10.7 fL (9.4-12.3); Platelet Count 200 X10*3/uL (160-400); Red Blood Count 3.19 X10*6/uL (4.20-5.50); Red Cell Distribution Width 13.2 % (11.0-16.0); White Blood Count 11.4 X10*3/uL (4.8-10.8)
[2021-06-08 05:50] LABS: Anion Gap 16 (12-20); Blood Urea Nitrogen 50 mg/dL (9-16); Calcium 7.9 mg/dL (8.4-10.2); Carbon Dioxide 20 mmol/L (22-29); Chloride 110 mmol/L (96-108); Creatinine Clr Calc Pharmacy 13.8; Estimated Glomerular Filt Rate 11; Glucose Fasting 145 mg/dL (60-99); Potassium 4.2 mmol/L (3.3-5.1); Sodium 142 mmol/L (135-145)
[2021-06-08] MEDS: 0.9 % Sodium Chloride 1,000 ML 75 ML IVCONT ×2 (06:23→20:43)
[2021-06-08 07:26] LABS: Glucose, Whole Blood 138 mg/dL (60-115)
[2021-06-08] MEDS: Sodium Bicarbonate 650 MG TABLET PO ×4 (08:51→20:40)
[2021-06-08] MEDS: Sertraline HCL 50 MG TABLET PO (08:51)
[2021-06-08] MEDS: hydrALAZINE HCl 10 MG TABLET PO ×2 (08:51→20:41)
[2021-06-08] MEDS: Insulin Glargine,Hum.rec.anlog 100 UNIT/ML 10 ML VIAL 20 UNIT SUBCUT (08:51)
[2021-06-08] MEDS: Calcium + Vitamin D 250 MG TABLET 500 MG PO ×2 (08:51→20:40)
[2021-06-08] MEDS: Pantoprazole Sodium 40 MG/10 ML VIAL IVPUSH (08:51)
[2021-06-08] MEDS: Clopidogrel Bisulfate 75 MG TABLET PO (08:52)
[2021-06-08] MEDS: Enoxaparin Sodium 30 MG/0.3 ML SYRINGE SUBCUT (08:52)
[2021-06-08] MEDS: carvediloL 3.125 MG TABLET PO ×2 (08:52→20:40)
[2021-06-08] MEDS: Escitalopram Oxalate 10 MG TABLET PO (08:52)
[2021-06-08 11:21] LABS: Glucose, Whole Blood 181 mg/dL (60-115)
--- NOTE | 2021-06-08 12:02 | PM.PNNEP ---
Subjective Subjective Date of Service: 06/08/21 Interval history: left sided weakness and numbness significantly improved. Events noted. All recent data reviewed Physical Exam Vital Signs: Vital Signs: Last Vital Signs Temp 97.8 F 06/08/21 11:17 Pulse 73 06/08/21 11:17 Resp 20 06/08/21 11:17 BP 190/77 H 06/08/21 11:17 Pulse Ox 99 06/08/21 11:17 Body Mass Index 34.0 Const: General: cooperative Orientation/consciousness: patient oriented x3 Eyes: EOM: EOMs intact bilaterally Neck: Neck: Yes normal visual inspection Resp: Auscultation: diminished lung sounds Cardio: Rate: regular rate GI: Palpation (GI): Soft to palpation Neuro: General: patient oriented x3 Objective Data Labs CBC & Chem 7: 06/08/21 05:03 06/08/21 05:03 Labs: Laboratory Results - last 24 hr 06/07/21 06/07/21 06/07/21 11:25 16:18 20:33 WBC RBC Hgb Hct MCV MCH MCHC RDW Plt Count MPV Absolute Nucleated RBC Nucleated RBC % (auto) Sodium Potassium Chloride Carbon Dioxide Anion Gap BUN Creatinine Estim Creat Clear Calc Estimated GFR POC Glucose 139 H 174 H 178 H Fasting Glucose Calcium 06/08/21 06/08/21 06/08/21 05:03 05:03 07:21 WBC 11.4 H RBC 3.19 L Hgb 8.3 L Hct 26.2 L MCV 82.1 MCH 26.0 L MCHC 31.7 RDW 13.2 Plt Count 200 MPV 10.7 Absolute Nucleated RBC 0.000 Nucleated RBC % (auto) 0.0 Sodium 142 Potassium 4.2 Chloride 110 H Carbon Dioxide 20 L Anion Gap 16 BUN 50 H Creatinine 4.08 H* Estim Creat Clear Calc 13.8 Estimated GFR 11 POC Glucose 138 H Fasting Glucose 145 H D Calcium 7.9 L 06/08/21 11:17 WBC RBC Hgb Hct MCV MCH MCHC RDW Plt Count MPV Absolute Nucleated RBC Nucleated RBC % (auto) Sodium Potassium Chloride Carbon Dioxide Anion Gap BUN Creatinine Estim Creat Clear Calc Estimated GFR POC Glucose 181 H Fasting Glucose Calcium Procedures Date of Service Date of Service: 06/08/21 Assessment & Plan Assessment and plan (1) GIL (acute kidney injury): Status: Acute Assessment and Plan: 66 year old female presented with left sided weakness and numbness, given Tpa, mri showed small acute right thalamic infarct. CTA unremarkable, echo with normal EF grade 2 diastolic dysfunction, mild left atrial enlargement, mild , mild MR, severe pulmonary hypertension. acute right thalamic cva s/p tpa evening of 06/04 GIL on CKD IV with hyperkalemia hyperkalemia improved; on lokelma likely had MOR from CTA; Serum creatinine plateaued No indication for renal replacement Could be discharged from a renal perspective if there are no other medical contraindication Shall arrange close office follow up when D/Mian Time Spent With Patient Time: Total time spent is greater than 50% in coordination of care (as documented) at patient's floor/unit and/or counseling patient: Time with patient: 15 - 24 minutes Progress Note: Quality Stroke Does the patient have a stroke diagnosis?: Yes Reason for No Anti-thrombotic by Day Two: N/A - Med Ordered
--- NOTE | 2021-06-08 12:41 | MHC.CM.PN ---
CM met with Patient and her Daughter/Adelita at bedside. Adelita wanted to confirm that [facility] is first choice facility for STR. A referral was made to [facility] and MANJINDER will continue to follow for dc planning.
[2021-06-08] MEDS: Insulin Lispro 100 UNIT/ML 3 ML VIAL SUBCUT ×3 (12:44→20:41)
[2021-06-08] MEDS: Loperamide HCl 2 MG CAPSULE PO (12:44)
[2021-06-08 16:05] LABS: Glucose, Whole Blood 191 mg/dL (60-115)
--- NOTE | 2021-06-08 19:00 | P.PNIM_ITS ---
Subjective Subjective Date of Service: 06/08/21 Interval History: CVA Review of Systems GIL seems to be improving, patient denies any chest pain or shortness of breath or abdominal pain fever chills. Physical Exam Vital Signs: Vital Signs: Last Vital Signs Temp 97.0 F 06/08/21 15:03 Pulse 77 06/08/21 15:03 Resp 20 06/08/21 15:03 BP 168/72 H 06/08/21 15:03 Pulse Ox 96 06/08/21 15:03 Body Mass Index 34.0 Physical exam: General: AO X 3, NAD Resp:? CTA bilateral CVS: S1,S2,RRR GI: soft, non tender, non distended Neuro:? left sided defeciencies no longer appreciated left bka Psych: appropriate affect Objective Data Active Medications Aspirin (Aspirin Enteric Coated 81 Mg Tablet.) 81 mg PO BEDTIME [facility] Last Admin: 06/07/21 20:38 Dose: 81 mg Documented by: ALO Atorvastatin Calcium (Atorvastatin Calcium 80 Mg Tablet) 80 mg PO BEDTIME [facility] Last Admin: 06/07/21 20:38 Dose: 80 mg Documented by: ALO Calcium Carbonate/Cholecalciferol (Calcium + Vitamin D 250 Mg Tablet) 500 mg PO BID [facility] Last Admin: 06/08/21 08:51 Dose: 500 mg Documented by: DC Carvedilol (Carvedilol 3.125 Mg Tablet) 3.125 mg PO BID [facility]; Protocol Last Admin: 06/08/21 08:52 Dose: 3.125 mg Documented by: DC Clopidogrel Bisulfate (Clopidogrel Bisulfate 75 Mg Tablet) 75 mg PO DAILY [facility] Last Admin: 06/08/21 08:52 Dose: 75 mg Documented by: DC Dextrose (Dextrose 50 % 25 Gm/50 Ml Vial) 25 gm IVPUSH Q15M PRN; Protocol PRN Reason: per Hypoglycemia Standing Ord. Enoxaparin Sodium (Enoxaparin Sodium 30 Mg/0.3 Ml Syringe) 30 mg SUBCUT Q24H [facility] Last Admin: 06/08/21 08:52 Dose: 30 mg Documented by: DC Escitalopram Oxalate (Escitalopram Oxalate 10 Mg Tablet) 10 mg PO DAILY [facility] Last Admin: 06/08/21 08:52 Dose: 10 mg Documented by: DC Glucose (Glucose Gel 15 Gm Gel..Gram.) 15 gm PO Q15M PRN; Protocol PRN Reason: per Hypoglycemia Standing Ord. Hydralazine HCl (Hydralazine Hcl 10 Mg Tablet) 10 mg PO BID [facility]; Protocol Last Admin: 06/08/21 08:51 Dose: 10 mg Documented by: DC Sodium Chloride (Ns) 1,000 mls @ 75 mls/hr IVCONT .[id number] [facility] Last Admin: 06/08/21 06:23 Dose: 75 mls/hr Documented by: SHENA Insulin Glargine (Insulin Glargine,Hum.Rec.Anlog 100 Unit/Ml 10 Ml Vial) 20 unit SUBCUT DAILY [facility] Last Admin: 06/08/21 08:51 Dose: 20 unit Documented by: DC Insulin Human Lispro (Insulin Lispro 100 Unit/Ml 3 Ml Vial) 0 unit SUBCUT QIDACHS [facility]; Protocol Last Admin: 06/08/21 17:30 Dose: 2 unit Documented by: DC Loperamide HCl (Loperamide Hcl 2 Mg Capsule) 2 mg PO Q6H PRN PRN Reason: Diarrhea Last Admin: 06/08/21 12:44 Dose: 2 mg Documented by: DC Sertraline HCl (Sertraline Hcl 50 Mg Tablet) 50 mg PO DAILY [facility] Last Admin: 06/08/21 08:51 Dose: 50 mg Documented by: DC Sodium Bicarbonate (Sodium Bicarbonate 650 Mg Tablet) 650 mg PO QID [facility] Last Admin: 06/08/21 17:31 Dose: 650 mg Documented by: DC Sodium Zirconium Cyclosilicate (Sodium Zirconium Cyclosilicate 10 Gm Powd.Pack) 10 gm PO DAILY [facility] Last Admin: 06/08/21 08:54 Dose: Not Given Documented by: DC Non-Admin Reason: k 4.2 Trazodone HCl (Trazodone Hcl 50 Mg Tablet) 50 mg PO BEDTIME [facility] Last Admin: 06/07/21 20:38 Dose: 50 mg Documented by: ALO Labs CBC & Chem 7: 06/08/21 05:03 06/08/21 05:03 Labs: Laboratory Results - last 24 hr 06/07/21 06/08/21 06/08/21 20:33 05:03 05:03 MCV 82.1 MCH 26.0 L MCHC 31.7 RDW 13.2 Plt Count 200 MPV 10.7 Absolute Nucleated RBC 0.000 Nucleated RBC % (auto) 0.0 Anion Gap 16 Estim Creat Clear Calc 13.8 Estimated GFR 11 POC Glucose 178 H Fasting Glucose 145 H D Calcium 7.9 L 06/08/21 06/08/21 06/08/21 07:21 11:17 15:53 MCV MCH MCHC RDW Plt Count MPV Absolute Nucleated RBC Nucleated RBC % (auto) Anion Gap Estim Creat Clear Calc Estimated GFR POC Glucose 138 H 181 H 191 H Fasting Glucose Calcium Assessment and Plan (1) CKD (chronic kidney disease) stage 3, GFR 30-59 ml/min: Status: Acute (2) GIL (acute kidney injury): Status: Acute Assessment and Plan: 66F presented with left sided weakness and numbness, given Tpa, mri showed small acute right thalamic infarct. CTA unremarkable, echo with normal EF grade 2 diastolic dysfunction, mild left atrial enlargement, mild , mild MR, severe pulmonary hypertension. she was monitored in ICU for 24 hours and downgraded to telemetry. acute right thalamic cva s/p tpa evening of 06/04 started on dual antiplatelet 06/06 for 30 days then decrease to single antiplatelet high intensity statin PT/OT plan for eventual acute rehab GIL on CKD IV with hyperkalemia hyperkalemia improved on lokelma started on NS, monitor nephro following-d/w nephro : cautious use of lasix qother day DM insulin HTN hydralazine coreg dvt prophylaxis -lovenox dispo: awaiting rehab placement full code Quality Stroke Does the patient have a stroke diagnosis?: Yes Reason for No Anti-thrombotic by Day Two: N/A - Med Ordered VTE Prior VTE?: No VTE Risk Level:: Medical - low VTE Device Contraindication: N/A - Device Ordered VTE Drug Contraindication: N/A - Med Ordered
[2021-06-08 20:06] LABS: Glucose, Whole Blood 191 mg/dL (60-115)
[2021-06-08] MEDS: traZODone HCL 50 MG TABLET PO (20:41)
[2021-06-08] MEDS: Aspirin Enteric Coated 81 MG TABLET.DR PO (20:41)
[2021-06-08] MEDS: Atorvastatin Calcium 80 MG TABLET PO (20:41)
[2021-06-09] VITALS (10 sets, daily range): BP systolic 145–175; BP diastolic 63–76; PULSE 76–83; RESP 16–20; TEMP 36.2–37.1; O2SAT 92–98; BMI 34.4
[2021-06-09 07:46] LABS: Glucose, Whole Blood 127 mg/dL (60-115)
[2021-06-09] MEDS: Sodium Bicarbonate 650 MG TABLET PO ×3 (08:22→20:19)
[2021-06-09] MEDS: hydrALAZINE HCl 10 MG TABLET PO ×2 (08:22→20:19)
[2021-06-09] MEDS: Calcium + Vitamin D 250 MG TABLET 500 MG PO ×2 (08:22→20:20)
[2021-06-09] MEDS: Escitalopram Oxalate 10 MG TABLET PO (08:22)
[2021-06-09] MEDS: Enoxaparin Sodium 30 MG/0.3 ML SYRINGE SUBCUT (08:22)
[2021-06-09] MEDS: Sertraline HCL 50 MG TABLET PO (08:22)
[2021-06-09] MEDS: Clopidogrel Bisulfate 75 MG TABLET PO (08:22)
[2021-06-09] MEDS: Insulin Glargine,Hum.rec.anlog 100 UNIT/ML 10 ML VIAL 20 UNIT SUBCUT (08:22)
[2021-06-09] MEDS: carvediloL 3.125 MG TABLET PO ×2 (08:23→20:19)
--- NOTE | 2021-06-09 10:21 | PM.PNNEP ---
Subjective Subjective Date of Service: 06/09/21 Interval history: Seen AM. Events noted. All recent data reviewed Physical Exam Vital Signs: Vital Signs: Last Vital Signs Temp 97.9 F 06/09/21 07:23 Pulse 83 06/09/21 08:23 Resp 19 06/09/21 07:23 BP 152/65 H 06/09/21 08:23 Pulse Ox 95 06/09/21 07:23 Body Mass Index 34.4 Const: General: comfortable Orientation/consciousness: patient oriented x3 Neck: Neck: Yes supple Resp: Auscultation: diminished lung sounds Cardio: Jugular venous distension: no JVD Rate: regular rate GI: Palpation (GI): Soft to palpation Neuro: General: patient oriented x3 Objective Data Labs CBC & Chem 7: 06/08/21 05:03 06/08/21 05:03 Labs: Laboratory Results - last 24 hr 06/08/21 06/08/21 06/08/21 11:17 15:53 19:54 POC Glucose 181 H 191 H 191 H 06/09/21 07:25 POC Glucose 127 H Procedures Date of Service Date of Service: 06/09/21 Assessment & Plan Assessment and plan (1) GIL (acute kidney injury): Status: Acute Assessment and Plan: 66 year old female presented with left sided weakness and numbness, given Tpa, mri showed small acute right thalamic infarct. CTA unremarkable, echo with normal EF grade 2 diastolic dysfunction, mild left atrial enlargement, mild , mild MR, severe pulmonary hypertension. acute right thalamic cva s/p tpa evening of 06/04 GIL on CKD IV with hyperkalemia hyperkalemia improved; on lokelma likely had MOR from CTA; Serum creatinine plateaued No indication for renal replacement Could be discharged from a renal perspective if there are no other medical contraindication Shall arrange close office follow up when D/Mian Time Spent With Patient Time: Total time spent is greater than 50% in coordination of care (as documented) at patient's floor/unit and/or counseling patient: Progress Note: Quality Stroke Does the patient have a stroke diagnosis?: Yes Reason for No Anti-thrombotic by Day Two: N/A - Med Ordered
[2021-06-09 11:29] LABS: Glucose, Whole Blood 158 mg/dL (60-115)
[2021-06-09] MEDS: 0.9 % Sodium Chloride 1,000 ML 75 ML IVCONT (13:37)
--- NOTE | 2021-06-09 13:37 | MHC.CM.PN ---
MANJINDER spoke with Daughter/HCP/Adelita @ [phone] to inform her that only 2 facilities have accepted and have beds ([facility] @ [facility] [place]note 2] and [facility]). Per the outcome of this discussion, a referral has been made to [facility], who is actively pursuing insurance authorization. is aware and MANJINDER will follow.
--- NOTE | 2021-06-09 15:00 | P.PNIM_ITS ---
Subjective Subjective Date of Service: 06/09/21 Interval History: CVA Review of Systems Denies any new complaint of chest pain or shortness of breath or abdominal pain or fever or chills or nausea or vomiting Denies any cough Denies any new weakness or numbness. Physical Exam Vital Signs: Vital Signs: Last Vital Signs Temp 97.9 F 06/09/21 10:59 Pulse 77 06/09/21 11:14 Resp 18 06/09/21 10:59 BP 151/76 H 06/09/21 11:14 Pulse Ox 98 06/09/21 11:14 Body Mass Index 34.4 General: AO X 3, NAD Resp:? CTA bilateral CVS: S1,S2,RRR GI: soft, non tender, non distended Neuro:? left sided defeciencies no longer appreciated left bka Psych: appropriate affect Objective Data Active Medications Aspirin (Aspirin Enteric Coated 81 Mg Tablet.) 81 mg PO BEDTIME [facility] Last Admin: 06/08/21 20:41 Dose: 81 mg Documented by: GLADIS Atorvastatin Calcium (Atorvastatin Calcium 80 Mg Tablet) 80 mg PO BEDTIME [facility] Last Admin: 06/08/21 20:41 Dose: 80 mg Documented by: GLADIS Calcium Carbonate/Cholecalciferol (Calcium + Vitamin D 250 Mg Tablet) 500 mg PO BID [facility] Last Admin: 06/09/21 08:22 Dose: 500 mg Documented by: JOSE G Carvedilol (Carvedilol 3.125 Mg Tablet) 3.125 mg PO BID [facility]; Protocol Last Admin: 06/09/21 08:23 Dose: 3.125 mg Documented by: JOSE G Clopidogrel Bisulfate (Clopidogrel Bisulfate 75 Mg Tablet) 75 mg PO DAILY [facility] Last Admin: 06/09/21 08:22 Dose: 75 mg Documented by: JOSE G Dextrose (Dextrose 50 % 25 Gm/50 Ml Vial) 25 gm IVPUSH Q15M PRN; Protocol PRN Reason: per Hypoglycemia Standing Ord. Enoxaparin Sodium (Enoxaparin Sodium 30 Mg/0.3 Ml Syringe) 30 mg SUBCUT Q24H [facility] Last Admin: 06/09/21 08:22 Dose: 30 mg Documented by: JOSE G Escitalopram Oxalate (Escitalopram Oxalate 10 Mg Tablet) 10 mg PO DAILY [facility] Last Admin: 06/09/21 08:22 Dose: 10 mg Documented by: JOSE G Glucose (Glucose Gel 15 Gm Gel..Gram.) 15 gm PO Q15M PRN; Protocol PRN Reason: per Hypoglycemia Standing Ord. Hydralazine HCl (Hydralazine Hcl 10 Mg Tablet) 10 mg PO BID [facility]; Protocol Last Admin: 06/09/21 08:22 Dose: 10 mg Documented by: JOSE G Sodium Chloride (Ns) 1,000 mls @ 75 mls/hr IVCONT .[id number] [facility] Last Admin: 06/09/21 13:37 Dose: 75 mls/hr Documented by: JOSE G Insulin Glargine (Insulin Glargine,Hum.Rec.Anlog 100 Unit/Ml 10 Ml Vial) 20 unit SUBCUT DAILY [facility] Last Admin: 06/09/21 08:22 Dose: 20 unit Documented by: JOSE G Insulin Human Lispro (Insulin Lispro 100 Unit/Ml 3 Ml Vial) 0 unit SUBCUT QIDACHS [facility]; Protocol Last Admin: 06/09/21 11:31 Dose: Not Given Documented by: JOSE G Non-Admin Reason: No Insulin Coverage Loperamide HCl (Loperamide Hcl 2 Mg Capsule) 2 mg PO Q6H PRN PRN Reason: Diarrhea Last Admin: 06/08/21 12:44 Dose: 2 mg Documented by: DC Sertraline HCl (Sertraline Hcl 50 Mg Tablet) 50 mg PO DAILY [facility] Last Admin: 06/09/21 08:22 Dose: 50 mg Documented by: JOSE G Sodium Bicarbonate (Sodium Bicarbonate 650 Mg Tablet) 650 mg PO QID [facility] Last Admin: 06/09/21 08:22 Dose: 650 mg Documented by: JOSE G Sodium Zirconium Cyclosilicate (Sodium Zirconium Cyclosilicate 10 Gm Powd.Pack) 10 gm PO DAILY [facility] Last Admin: 06/09/21 07:50 Dose: Not Given Documented by: JOSE G Non-Admin Reason: K 4.2 Trazodone HCl (Trazodone Hcl 50 Mg Tablet) 50 mg PO BEDTIME [facility] Last Admin: 06/08/21 20:41 Dose: 50 mg Documented by: GLADIS Labs CBC & Chem 7: 06/08/21 05:03 06/08/21 05:03 Labs: Laboratory Results - last 24 hr 06/08/21 06/08/21 06/09/21 15:53 19:54 07:25 POC Glucose 191 H 191 H 127 H 06/09/21 10:58 POC Glucose 158 H Assessment and Plan (1) GIL (acute kidney injury): Status: Acute Assessment and Plan: 66F presented with left sided weakness and numbness, given Tpa, mri showed small acute right thalamic infarct. CTA unremarkable, echo with normal EF grade 2 diastolic dysfunction, mild left atrial enlargement, mild , mild MR, severe pulmonary hypertension. she was monitored in ICU for 24 hours and downgraded to telemetry. 1.acute right thalamic cva s/p tpa evening of 06/04 started on dual antiplatelet 06/06 for 30 days then decrease to single antiplatelet high intensity statin PT/OT plan for eventual acute rehab 2.GIL on CKD IV with hyperkalemia hyperkalemia improved on lokelma dc fluids , monitor nephro following-d/w nephro : cautious use of lasix qother day started back lasix 3.DM insulin 4.HTN hydralazine coreg 5.dvt prophylaxis -lovenox dispo: awaiting rehab placement Quality Stroke Does the patient have a stroke diagnosis?: Yes Reason for No Anti-thrombotic by Day Two: N/A - Med Ordered VTE Prior VTE?: No VTE Risk Level:: Medical - low VTE Device Contraindication: N/A - Device Ordered VTE Drug Contraindication: N/A - Med Ordered
[2021-06-09 16:23] LABS: Glucose, Whole Blood 188 mg/dL (60-115)
[2021-06-09] MEDS: Insulin Lispro 100 UNIT/ML 3 ML VIAL SUBCUT (16:37)
[2021-06-09] MEDS: Aspirin Enteric Coated 81 MG TABLET.DR PO (20:19)
[2021-06-09] MEDS: Atorvastatin Calcium 80 MG TABLET PO (20:19)
[2021-06-09] MEDS: traZODone HCL 50 MG TABLET PO (20:20)
[2021-06-09 20:50] LABS: Glucose, Whole Blood 137 mg/dL (60-115)
[2021-06-10] VITALS (10 sets, daily range): BP systolic 124–181; BP diastolic 58–79; PULSE 71–79; RESP 18–20; TEMP 36.4–37.1; O2SAT 91–98; BMI 36.1
[2021-06-10 07:25] LABS: Anion Gap 16 (12-20); Blood Urea Nitrogen 47 mg/dL (9-16); Calcium 8.2 mg/dL (8.4-10.2); Carbon Dioxide 18 mmol/L (22-29); Chloride 112 mmol/L (96-108); Creatinine Clr Calc Pharmacy 17.5; Estimated Glomerular Filt Rate 14; Glucose Random 124 mg/dL (60-115); Potassium 4.6 mmol/L (3.3-5.1); Sodium 141 mmol/L (135-145)
[2021-06-10 07:28] LABS: Glucose, Whole Blood 124 mg/dL (60-115)
[2021-06-10] MEDS: Calcium + Vitamin D 250 MG TABLET 500 MG PO ×2 (09:51→20:36)
[2021-06-10] MEDS: Enoxaparin Sodium 30 MG/0.3 ML SYRINGE SUBCUT (09:51)
[2021-06-10] MEDS: Insulin Glargine,Hum.rec.anlog 100 UNIT/ML 10 ML VIAL 20 UNIT SUBCUT (09:51)
[2021-06-10] MEDS: Sodium Bicarbonate 650 MG TABLET PO ×4 (09:51→20:36)
[2021-06-10] MEDS: carvediloL 3.125 MG TABLET PO ×2 (09:51→20:36)
[2021-06-10] MEDS: Sertraline HCL 50 MG TABLET PO (09:51)
[2021-06-10] MEDS: hydrALAZINE HCl 10 MG TABLET PO ×2 (09:52→20:37)
[2021-06-10] MEDS: Furosemide 20 MG TABLET PO (09:52)
[2021-06-10] MEDS: Clopidogrel Bisulfate 75 MG TABLET PO (09:52)
[2021-06-10] MEDS: Escitalopram Oxalate 10 MG TABLET PO (09:52)
[2021-06-10 10:26] LABS: COVID-19 Test Negative (Negative); IDNOW Serial# 9DD0AD1C
[2021-06-10 10:59] LABS: Glucose, Whole Blood 168 mg/dL (60-115)
--- NOTE | 2021-06-10 11:10 | P.PNNP_ITS ---
Subjective Subjective Date of Service: 06/10/21 Interval history: Events noted; All recent data reviewed Physical Exam Vital Signs: Vital Signs: Last Vital Signs Temp 98.5 F 06/10/21 11:06 Pulse 79 06/10/21 11:06 Resp 20 06/10/21 11:06 BP 181/79 H 06/10/21 11:06 Pulse Ox 95 06/10/21 11:06 Body Mass Index 36.1 Const: General: no acute distress Orientation/consciousness: patient oriented x3 Eyes: EOM: EOMs intact bilaterally Neck: Neck: Yes supple Resp: Auscultation: diminished lung sounds Cardio: Jugular venous distension: no JVD Rate: regular rate GI: Palpation (GI): Soft to palpation Neuro: General: patient oriented x3 Objective Data Labs CBC & Chem 7: 06/08/21 05:03 06/10/21 06:02 Labs: Laboratory Results - last 24 hr 06/09/21 06/09/21 06/09/21 10:58 16:04 20:35 Sodium Potassium Chloride Carbon Dioxide Anion Gap BUN Creatinine Estim Creat Clear Calc Estimated GFR POC Glucose 158 H 188 H 137 H Random Glucose Calcium COVID-19 (LUCIUS) COVID-19 Clin Com 06/10/21 06/10/21 06/10/21 06:02 07:19 10:00 Sodium 141 Potassium 4.6 Chloride 112 H Carbon Dioxide 18 L Anion Gap 16 BUN 47 H Creatinine 3.31 H Estim Creat Clear Calc 17.5 Estimated GFR 14 POC Glucose 124 H Random Glucose 124 H Calcium 8.2 L COVID-19 ([facility]CI[facility]) Negative COVID-19 Clin Com See Note 06/10/21 10:47 Sodium Potassium Chloride Carbon Dioxide Anion Gap BUN Creatinine Estim Creat Clear Calc Estimated GFR POC Glucose 168 H Random Glucose Calcium COVID-19 (LUCIUS) COVID-19 Clin Com Procedures Date of Service Date of Service: 06/10/21 Assessment & Plan Assessment and plan (1) GIL (acute kidney injury): Status: Acute Assessment and Plan: 66 year old female presented with left sided weakness and numbness, given Tpa, mri showed small acute right thalamic infarct. CTA unremarkable, echo with normal EF grade 2 diastolic dysfunction, mild left atrial enlargement, mild , mild MR, severe pulmonary hypertension. acute right thalamic cva s/p tpa evening of 06/04 GIL on CKD IV- improving hyperkalemia improved; on lokelma likely had MOR from CTA; Serum creatinine better Could be discharged from a renal perspective if there are no other medical contraindication Shall arrange close office follow up when D/Mian Time Spent With Patient Time: Total time spent is greater than 50% in coordination of care (as doc umented) at patient's floor/unit and/or counseling patient: Progress Note: Quality Stroke Does the patient have a stroke diagnosis?: Yes Reason for No Anti-thrombotic by Day Two: N/A - Med Ordered
--- NOTE | 2021-06-10 11:41 | P.DS_ITS ---
DS: Providers Provider Date of Service: 06/10/21 Date of admission: 06/05/21 00:36 Date of discharge: 06/10/21 Primary care physician: Alexys Avila MD Consults: 06/05/21 00:36 Consult to Neurology Routine Consulting Provider: Matias Mclean Reason for consultation: stroke Has provider been notified: No 06/06/21 09:39 Consult to Nephrology Routine Consulting Provider: Mikey Pang Reason for consultation: ckd, hyperkalemia DS: Diagnosis Discharge Diagnosis (1) GIL (acute kidney injury): Status: Acute DS: Summary Hospital Course Hospital Course: 66-year-old female has underlying history of anemia, chronic kidney disease stage 3-4 congestive heart failure, diabetes type 2, hypertension, GERD, hyperlipidemia, nonischemic cardiomyopathy among others.? Patient presented via EMS with complaints of weakness of the left side, numbness of the left face and left body as well as difficulty speaking which started around 9-9 3:00 p.m. shad barry also had a right-sided headache 7/10, pounding without any visual difficulties and she felt like she was going to pass out.? Upon arrival to the emergency room, stroke protocol was activated, the patient was evaluated with an NIH of 3, CT of the head showed no hemorrhage, Neurology was consulted and tPA was administered at 10:55 p.m..? Further?workup revealed a white count of 11.9, H&H of 9.4 and 30 respectively.? Platelet count was 204, INR 1.1, sodium 133, potassium 6.7, carbon dioxide 18, BUN 52, creatinine 2.72 (baseline) glucose 195, calcium 8.1, alk phos 151. COVID negative. ?Patient was treated with calcium gluconate, insulin and an amp of D50. Head CT as well as head and neck CTA did not show any evidence of acute infarct or large vessel occlusion. Hospital course: 66F presented with left sided weakness and numbness, given Tpa, mri showed small acute right thalamic infarct. CTA unremarkable, echo with normal EF grade 2 diastolic dysfunction, mild left atrial enlargement, mild , mild MR, severe pulmonary hypertension. she was monitored in ICU for 24 hours and downgraded to telemetry. 1.acute right thalamic cva-s/p tpa evening of 06/04 started on dual antiplatelet 06/06 for 30 days then decrease to single antiplatelet, statin,subsequently switched to dual platelet therapy-patient will need dual anti platelet therapy-after 1 month her patient can drop back to 1 antiplatelet agent. PT/OT-plan for eventual acute rehab. 2.Gil on CKD: Seems to be improving with holding Lasix also gentle fluids during this admission, seen by Nephrology needs to follow up outpatient with Nephrology. Monitor BMP in rehab in next 2-3 days . Nephrology recommended to start her Lasix upon discharge. Above management discussed with the patient in detail length she understand and in agreement with the above plan, time spent 50 minutes and 50% time spent on counseling. Significant findings: As above. Procedures performed: None. Treatment and response: As above. Complications: None. Time Spent with Patient Time attestation: Total time spent providing and/or coordinating discharge services: Discharge coordination time: Greater than 30 minutes Quality: Stroke Does the patient have a stroke diagnosis?: Yes Reason for No Anti-thrombotic at DC: N/A - Med Ordered Reason for No Anticoagulant at DC: N/A - Med Ordered Reason Not Initiating IV-Tpa: N/A - Med Ordered Reason for No Anti-thrombotic by Day Two: N/A - Med Ordered Reason for No Statin at DC: N/A - Med Ordered Physical Exam Vital Signs: Vital Signs: Last Vital Signs Temp 98.5 F 06/10/21 11:06 Pulse 79 06/10/21 11:06 Resp 20 06/10/21 11:06 BP 181/79 H 06/10/21 11:06 Pulse Ox 95 06/10/21 11:06 Body Mass Index 36.1 General: AO X 3, NAD Resp:? CTA bilateral CVS: S1,S2,RRR GI: soft, non tender, non distended Neuro:? left sided defeciencies no longer appreciated left bka skin: no rash or edema Psych: appropriate affect DS: Data Data Completed and Pending Completed studies during hospitalization [Text1]: Procedures Transfusion of Nonautologous Red Blood Cells into Peripheral Vein, Percutaneous Approach (12/24/20) Labs on day of discharge: Laboratory Results - last 24 hr 06/09/21 06/09/21 06/10/21 16:04 20:35 06:02 Sodium 141 Potassium 4.6 Chloride 112 H Carbon Dioxide 18 L Anion Gap 16 BUN 47 H Creatinine 3.31 H Estim Creat Clear Calc 17.5 Estimated GFR 14 POC Glucose 188 H 137 H Random Glucose 124 H Calcium 8.2 L COVID-19 ([facility]CIUS) COVID-19 Clin Com 06/10/21 06/10/21 06/10/21 07:19 10:00 10:47 Sodium Potassium Chloride Carbon Dioxide Anion Gap BUN Creatinine Estim Creat Clear Calc Estimated GFR POC Glucose 124 H 168 H Random Glucose Calcium COVID-19 ([facility]CIUS) Negative COVID-19 Clin Com See Note Discharge Plan Discharge Patient Disposition: Xfer SNF Discharge Diagnosis: cva, gil Referrals: Alexys Avila MD [Primary Care Provider] - 1 Week Mikey Pang MD [Physician] - 1 Week (follow up in 2 weeks) Matias Mclean MD [Physician] - 1 Week (follow up in 2 weeks ) Discharge Medications: New atorvastatin 80 mg Tablet 80 mg PO BEDTIME Qty: 30 RF: 0 sodium bicarbonate 650 mg Tablet 650 mg PO QID Qty: 14 RF: 0 clopidogrel 75 mg Tablet 75 mg PO DAILY Qty: 28 RF: 0 Continued carvedilol 3.125 mg tablet 3.125 mg PO BID 90 Days Qty: 180 RF: 3 hydralazine 10 mg tablet 10 mg PO BID 90 Days Qty: 180 RF: 3 furosemide [Lasix] 20 mg tablet 10 mg PO Q OTHER DAY Qty: 20 RF: 2 sertraline 50 mg tablet 1 tab PO QAM RF: 0 acetaminophen [Tylenol Extra Strength] 500 mg tablet 1,000 mg PO QID PRN (Reason: fever or pain) Qty: 14 RF: 0 omeprazole 40 mg capsule,delayed release(DR/EC) 40 mg PO BID 30 Days Qty: 60 RF: 6 insulin aspart U-100 100 unit/mL (3 mL) insulin pen 8 - 24 unit subcut TID RF: 0 gabapentin 100 mg capsule 100 mg PO BID RF: 0 magnesium oxide 400 mg (241.3 mg magnesium) tablet 400 mg PO BID RF: 0 aspirin 81 mg tablet,delayed release (DR/EC) 81 mg PO BEDTIME RF: 0 trazodone 50 mg tablet 50 mg PO BEDTIME RF: 0 citalopram 20 mg tablet 20 mg PO DAILY RF: 0 calcium carbonate-vitamin D3 500 mg(1,250mg) -400 unit tablet 1 tab PO BID RF: 0 insulin detemir U-100 100 unit/mL (3 mL) insulin pen 64 unit subcut DAILY RF: 0 Discontinued rosuvastatin 20 mg tablet 1 tab PO QPM RF: 0 Discharge Orders: Discharge Order (Routine); Ordered 06/10/21 Ordered By: Mamadou Mixon Diet: advance to usual diet and diabetic diet Activity on Discharge: As tolerated Stand Alone Forms: Patient Portal Discharge page Care Plan Goals: Patient came with the CVA acute had tPA, subsequently switched to dual platelet therapy-patient will need dual anti platelet therapy-after 1 month her patient can drop back to 1 antiplatelet agent. Gil on CKD: Seems to be improving with holding Lasix also gentle fluids during this admission, seen by Nephrology needs to follow up outpatient with Nephrology. Monitor BMP in rehab in next 2-3 days . Nephrology recommended to start her Lasix upon discharge. Health Concerns: As above. Plan of Treatment: As above. Assessment: As above.
[2021-06-10] MEDS: Insulin Lispro 100 UNIT/ML 3 ML VIAL SUBCUT ×2 (12:23→17:21)
[2021-06-10 16:17] LABS: Glucose, Whole Blood 188 mg/dL (60-115)
--- NOTE | 2021-06-10 18:27 | HO.PM.IMPN ---
Subjective Subjective Date of Service: 06/10/21 Interval History: cva Review of Systems has some abd pain? ch no nausea or vomitin has some diarrahae Physical Exam Vital Signs: Vital Signs: Last Vital Signs Temp 98.3 F 06/10/21 16:06 Pulse 79 06/10/21 16:06 Resp 18 06/10/21 16:06 BP 124/58 L 06/10/21 16:06 Pulse Ox 94 06/10/21 16:06 Body Mass Index 36.1 Objective Data Active Medications Aspirin (Aspirin Enteric Coated 81 Mg Tablet.) 81 mg PO BEDTIME [facility] Last Admin: 06/09/21 20:19 Dose: 81 mg Documented by: ARASH Atorvastatin Calcium (Atorvastatin Calcium 80 Mg Tablet) 80 mg PO BEDTIME [facility] Last Admin: 06/09/21 20:19 Dose: 80 mg Documented by: ARASH Calcium Carbonate/Cholecalciferol (Calcium + Vitamin D 250 Mg Tablet) 500 mg PO BID [facility] Last Admin: 06/10/21 09:51 Dose: 500 mg Documented by: JOSE G Carvedilol (Carvedilol 3.125 Mg Tablet) 3.125 mg PO BID [facility]; Protocol Last Admin: 06/10/21 09:51 Dose: 3.125 mg Documented by: JOSE G Clopidogrel Bisulfate (Clopidogrel Bisulfate 75 Mg Tablet) 75 mg PO DAILY [facility] Last Admin: 06/10/21 09:52 Dose: 75 mg Documented by: JOSE G Dextrose (Dextrose 50 % 25 Gm/50 Ml Vial) 25 gm IVPUSH Q15M PRN; Protocol PRN Reason: per Hypoglycemia Standing Ord. Enoxaparin Sodium (Enoxaparin Sodium 30 Mg/0.3 Ml Syringe) 30 mg SUBCUT Q24H [facility] Last Admin: 06/10/21 09:51 Dose: 30 mg Documented by: JOSE G Escitalopram Oxalate (Escitalopram Oxalate 10 Mg Tablet) 10 mg PO DAILY [facility] Last Admin: 06/10/21 09:52 Dose: 10 mg Documented by: JOSE G Furosemide (Furosemide 20 Mg Tablet) 20 mg PO DAILY [facility]; Protocol Last Admin: 06/10/21 09:52 Dose: 20 mg Documented by: JOSE G Glucose (Glucose Gel 15 Gm Gel..Gram.) 15 gm PO Q15M PRN; Protocol PRN Reason: per Hypoglycemia Standing Ord. Hydralazine HCl (Hydralazine Hcl 10 Mg Tablet) 10 mg PO BID [facility]; Protocol Last Admin: 06/10/21 09:52 Dose: 10 mg Documented by: JOSE G Insulin Glargine (Insulin Glargine,Hum.Rec.Anlog 100 Unit/Ml 10 Ml Vial) 20 unit SUBCUT DAILY [facility] Last Admin: 06/10/21 09:51 Dose: 20 unit Documented by: JOSE G Insulin Human Lispro (Insulin Lispro 100 Unit/Ml 3 Ml Vial) 0 unit SUBCUT QIDACHS [facility]; Protocol Last Admin: 06/10/21 17:21 Dose: 2 unit Documented by: JOSE G Loperamide HCl (Loperamide Hcl 2 Mg Capsule) 2 mg PO Q6H PRN PRN Reason: Diarrhea Last Admin: 06/08/21 12:44 Dose: 2 mg Documented by: DC Sertraline HCl (Sertraline Hcl 50 Mg Tablet) 50 mg PO DAILY [facility] Last Admin: 06/10/21 09:51 Dose: 50 mg Documented by: JOSE G Sodium Bicarbonate (Sodium Bicarbonate 650 Mg Tablet) 650 mg PO QID [facility] Last Admin: 06/10/21 17:21 Dose: 650 mg Documented by: JOSE G Sodium Zirconium Cyclosilicate (Sodium Zirconium Cyclosilicate 10 Gm Powd.Pack) 10 gm PO DAILY [facility] Last Admin: 06/10/21 09:52 Dose: Not Given Documented by: JOSE G Non-Admin Reason: See Note Tramadol HCl (Tramadol Hcl 50 Mg Tablet) 25 mg PO ONCE ONE Stop: 06/10/21 18:26 Trazodone HCl (Trazodone Hcl 50 Mg Tablet) 50 mg PO BEDTIME [facility] Last Admin: 06/09/21 20:20 Dose: 50 mg Documented by: ARASH Labs CBC & Chem 7: 06/08/21 05:03 06/10/21 06:02 Labs: Laboratory Results - last 24 hr 06/09/21 06/10/21 06/10/21 20:35 06:02 07:19 Anion Gap 16 Estim Creat Clear Calc 17.5 Estimated GFR 14 POC Glucose 137 H 124 H Random Glucose 124 H Calcium 8.2 L COVID-19 ([facility]US) COVID-19 Clin Com 06/10/21 06/10/21 06/10/21 10:00 10:47 16:14 Anion Gap Estim Creat Clear Calc Estimated GFR POC Glucose 168 H 188 H Random Glucose Calcium COVID-19 ([facility]CIUS) Negative COVID-19 Clin Com See Note Assessment and Plan (1) GIL (acute kidney injury): Status: Acute Assessment and Plan: 66F presented with left sided weakness and numbness, given Tpa, mri showed small acute right thalamic infarct. CTA unremarkable, echo with normal EF grade 2 diastolic dysfunction, mild left atrial enlargement, mild , mild MR, severe pulmonary hypertension. she was monitored in ICU for 24 hours and downgraded to telemetry. 1.acute right thalamic cva s/p tpa evening of 06/04 started on dual antiplatelet 06/06 for 30 days then decrease to single antiplatelet high intensity statin PT/OT plan for eventual acute rehab 2.GIL on CKD IV with hyperkalemia hyperkalemia improved on lokelma dc fluids , monitor nephro following-d/w nephro : cautious use of lasix qother day started back lasix 3.DM insulin 4.HTN hydralazine coreg 5.dvt prophylaxis -s/c heparin 6. abd pain : she says has on/off since her gall baldder surgery will will give 1 dose of tramadol Will send stool studies since had some diarrhea. If abdominal pain worsen we will get abdominal CT scan. Quality Stroke Does the patient have a stroke diagnosis?: Yes Reason for No Anti-thrombotic by Day Two: N/A - Med Ordered VTE Prior VTE?: No VTE Risk Level:: Medical - low VTE Device Contraindication: N/A - Device Ordered VTE Drug Contraindication: N/A - Med Ordered
--- NOTE | 2021-06-10 18:37 | PC.NURSE ---
Patient c/o 6 out of 10 abdominal pain. Hospitalist and direct support worker to bedside, patient reports having this pain for about 5 years post cholecystectomy. Stool studies and pain med ordered.
[2021-06-10 20:05] LABS: Glucose, Whole Blood 151 mg/dL (60-115)
[2021-06-10] MEDS: Atorvastatin Calcium 80 MG TABLET PO (20:36)
[2021-06-10] MEDS: traMADoL HCL 50 MG TABLET 25 MG PO (20:36)
[2021-06-10] MEDS: Aspirin Enteric Coated 81 MG TABLET.DR PO (20:36)
[2021-06-10] MEDS: traZODone HCL 50 MG TABLET PO (20:37)
[2021-06-10] MEDS: Heparin Sodium,Porcine 5,000 UNIT/ML VIAL 5000 UNIT SUBCUT (20:37)
[2021-06-11] VITALS (12 sets, daily range): BP systolic 148–184; BP diastolic 60–80; PULSE 62–69; RESP 17–21; TEMP 35.4–36.6; O2SAT 91–98; BMI 35.6
[2021-06-11] MEDS: Heparin Sodium,Porcine 5,000 UNIT/ML VIAL 5000 UNIT SUBCUT ×2 (06:08→18:32)
[2021-06-11 07:35] LABS: Glucose, Whole Blood 126 mg/dL (60-115)
[2021-06-11] MEDS: carvediloL 3.125 MG TABLET PO ×2 (08:11→20:52)
[2021-06-11] MEDS: Clopidogrel Bisulfate 75 MG TABLET PO (08:11)
[2021-06-11] MEDS: Calcium + Vitamin D 250 MG TABLET 500 MG PO ×2 (08:11→20:53)
[2021-06-11] MEDS: Escitalopram Oxalate 10 MG TABLET PO (08:11)
[2021-06-11] MEDS: Sodium Bicarbonate 650 MG TABLET PO ×4 (08:11→20:51)
[2021-06-11] MEDS: Sertraline HCL 50 MG TABLET PO (08:12)
[2021-06-11] MEDS: Furosemide 20 MG TABLET PO (08:12)
[2021-06-11] MEDS: Insulin Glargine,Hum.rec.anlog 100 UNIT/ML 10 ML VIAL 20 UNIT SUBCUT (08:12)
[2021-06-11] MEDS: hydrALAZINE HCl 10 MG TABLET PO ×2 (08:12→20:51)
--- NOTE | 2021-06-11 11:18 | PM.PNNEP ---
Subjective Subjective Date of Service: 06/11/21 Interval history: Events noted. All recent data reviewed Physical Exam Vital Signs: Vital Signs: Last Vital Signs Temp 97.6 F 06/11/21 11:07 Pulse 64 06/11/21 11:07 Resp 17 06/11/21 11:07 BP 181/80 H 06/11/21 11:07 Pulse Ox 96 06/11/21 11:07 Body Mass Index 35.6 Const: General: comfortable Orientation/consciousness: patient oriented x3 Eyes: EOM: EOMs intact bilaterally Neck: Neck: Yes supple Resp: Auscultation: diminished lung sounds Cardio: Rate: regular rate GI: Palpation (GI): Soft to palpation Neuro: General: patient oriented x3 Objective Data Labs CBC & Chem 7: 06/08/21 05:03 06/10/21 06:02 Labs: Laboratory Results - last 24 hr 06/10/21 06/10/21 06/11/21 16:14 19:49 07:14 POC Glucose 188 H 151 H 126 H Procedures Date of Service Date of Service: 06/11/21 Assessment & Plan Assessment and plan (1) Acute on chronic renal failure: Status: Acute Assessment and Plan: 66 year old female presented with left sided weakness and numbness, given Tpa, mri showed small acute right thalamic infarct. CTA unremarkable, echo with normal EF grade 2 diastolic dysfunction, mild left atrial enlargement, mild , mild MR, severe pulmonary hypertension. acute right thalamic cva s/p tpa evening of 06/04 GIL on CKD IV- improving hyperkalemia improved; on lokelma likely had MOR from CTA; Serum creatinine better Could be discharged from a renal perspective if there are no other medical contraindication Shall arrange close office follow up when D/Mian Time Spent With Patient Time: Total time spent is greater than 50% in coordination of care (as documented) at patient's floor/unit and/or counseling patient: Progress Note: Quality Stroke Does the patient have a stroke diagnosis?: Yes Reason for No Anti-thrombotic by Day Two: N/A - Med Ordered
[2021-06-11 11:38] LABS: Glucose, Whole Blood 132 mg/dL (60-115)
--- NOTE | 2021-06-11 12:27 | MHC.CM.PN ---
Patient's insurance has denied Acute Rehab Level Of Care ([facility]). Referrals made to SNFs have been updated ([facility] is first choice). CM will follow.
[2021-06-11 16:03] LABS: Glucose, Whole Blood 195 mg/dL (60-115)
--- NOTE | 2021-06-11 18:42 | HO.PM.IMPN ---
Subjective Subjective Date of Service: 06/11/21 Interval History: cva Review of Systems Denies any new complaint of chest pain or shortness of breath or abdominal pain or fever or chills or nausea or vomiting Denies any cough Denies any weakness or numbness. Physical Exam Vital Signs: Vital Signs: Last Vital Signs Temp 97.9 F 06/11/21 15:04 Pulse 69 06/11/21 15:04 Resp 21 H 06/11/21 15:04 BP 148/60 H 06/11/21 15:04 Pulse Ox 95 06/11/21 15:04 Body Mass Index 35.6 Physical exam: Appearance: Alert.? Oriented X3.? not in distress. cvs: rrr, [id number] , no murmur res: clear to auscultation ,no rhonchii or wheezing abd: no rebound or guarding ,nt, bs present. neuro: axo3 , ? left sided defeciencies no longer appreciated left bka. Objective Data Active Medications Aspirin (Aspirin Enteric Coated 81 Mg Tablet.) 81 mg PO BEDTIME [facility] Last Admin: 06/10/21 20:36 Dose: 81 mg Documented by: CINDA Atorvastatin Calcium (Atorvastatin Calcium 80 Mg Tablet) 80 mg PO BEDTIME [facility] Last Admin: 06/10/21 20:36 Dose: 80 mg Documented by: CINDA Calcium Carbonate/Cholecalciferol (Calcium + Vitamin D 250 Mg Tablet) 500 mg PO BID [facility] Last Admin: 06/11/21 08:11 Dose: 500 mg Documented by: WILMER Carvedilol (Carvedilol 3.125 Mg Tablet) 3.125 mg PO BID [facility]; Protocol Last Admin: 06/11/21 08:11 Dose: 3.125 mg Documented by: WILMER Clopidogrel Bisulfate (Clopidogrel Bisulfate 75 Mg Tablet) 75 mg PO DAILY [facility] Last Admin: 06/11/21 08:11 Dose: 75 mg Documented by: WILMER Dextrose (Dextrose 50 % 25 Gm/50 Ml Vial) 25 gm IVPUSH Q15M PRN; Protocol PRN Reason: per Hypoglycemia Standing Ord. Escitalopram Oxalate (Escitalopram Oxalate 10 Mg Tablet) 10 mg PO DAILY [facility] Last Admin: 06/11/21 08:11 Dose: 10 mg Documented by: WILMER Furosemide (Furosemide 20 Mg Tablet) 20 mg PO DAILY [facility]; Protocol Last Admin: 06/11/21 08:12 Dose: 20 mg Documented by: WILMER Glucose (Glucose Gel 15 Gm Gel..Gram.) 15 gm PO Q15M PRN; Protocol PRN Reason: per Hypoglycemia Standing Ord. Heparin Sodium (Porcine) (Heparin Sodium,Porcine 5,000 Unit/Ml Vial) 5,000 unit SUBCUT Q12H [facility] Last Admin: 06/11/21 18:32 Dose: 5,000 unit Documented by: WILMER Hydralazine HCl (Hydralazine Hcl 10 Mg Tablet) 10 mg PO BID [facility]; Protocol Last Admin: 06/11/21 08:12 Dose: 10 mg Documented by: WILMER Insulin Glargine (Insulin Glargine,Hum.Rec.Anlog 100 Unit/Ml 10 Ml Vial) 20 unit SUBCUT DAILY [facility] Last Admin: 06/11/21 08:12 Dose: 20 unit Documented by: WILMER Insulin Human Lispro (Insulin Lispro 100 Unit/Ml 3 Ml Vial) 0 unit SUBCUT QIDACHS [facility]; Protocol Last Admin: 06/11/21 17:09 Dose: Not Given Documented by: WILMER Non-Admin Reason: Patient Refused Loperamide HCl (Loperamide Hcl 2 Mg Capsule) 2 mg PO Q6H PRN PRN Reason: Diarrhea Last Admin: 06/08/21 12:44 Dose: 2 mg Documented by: DC Sertraline HCl (Sertraline Hcl 50 Mg Tablet) 50 mg PO DAILY [facility] Last Admin: 06/11/21 08:12 Dose: 50 mg Documented by: WILMER Sodium Bicarbonate (Sodium Bicarbonate 650 Mg Tablet) 650 mg PO QID [facility] Last Admin: 06/11/21 18:32 Dose: 650 mg Documented by: WILMER Sodium Zirconium Cyclosilicate (Sodium Zirconium Cyclosilicate 10 Gm Powd.Pack) 10 gm PO DAILY [facility] Last Admin: 06/11/21 08:13 Dose: Not Given Documented by: WILMER Non-Admin Reason: See Note Trazodone HCl (Trazodone Hcl 50 Mg Tablet) 50 mg PO BEDTIME [facility] Last Admin: 06/10/21 20:37 Dose: 50 mg Documented by: HO.NAUMOC Labs CBC & Chem 7: 06/08/21 05:03 06/10/21 06:02 Labs: Laboratory Results - last 24 hr 06/10/21 06/11/21 06/11/21 19:49 07:14 11:11 POC Glucose 151 H 126 H 132 H 06/11/21 15:53 POC Glucose 195 H Assessment and Plan (1) GIL (acute kidney injury): Status: Acute (2) Acute CVA (cerebrovascular accident): Status: Acute Assessment and Plan: 66F presented with left sided weakness and numbness, given Tpa, mri showed small acute right thalamic infarct. CTA unremarkable, echo with normal EF grade 2 diastolic dysfunction, mild left atrial enlargement, mild , mild MR, severe pulmonary hypertension. she was monitored in ICU for 24 hours and downgraded to telemetry. 1.acute right thalamic cva s/p tpa evening of 06/04 started on dual antiplatelet 06/06 for 30 days then decrease to single antiplatelet high intensity statin PT/OT plan for eventual acute rehab 2.GIL on CKD IV with hyperkalemia hyperkalemia improved on lokelma dc fluids , monitor nephro following-d/w nephro : cautious use of lasix qother day started back lasix 3.DM insulin 4.HTN hydralazine coreg 5.dvt prophylaxis -lovenox dispo: awaiting rehab placement Quality Stroke Does the patient have a stroke diagnosis?: Yes Reason for No Anti-thrombotic by Day Two: N/A - Med Ordered VTE Prior VTE?: No VTE Risk Level:: Medical - low VTE Device Contraindication: N/A - Device Ordered VTE Drug Contraindication: N/A - Med Ordered
[2021-06-11 20:06] LABS: Glucose, Whole Blood 182 mg/dL (60-115)
[2021-06-11] MEDS: Atorvastatin Calcium 80 MG TABLET PO (20:51)
[2021-06-11] MEDS: Aspirin Enteric Coated 81 MG TABLET.DR PO (20:52)
[2021-06-11] MEDS: Insulin Lispro 100 UNIT/ML 3 ML VIAL SUBCUT (20:53)
[2021-06-11] MEDS: traZODone HCL 50 MG TABLET PO (20:53)
[2021-06-12] VITALS (9 sets, daily range): BP systolic 141–176; BP diastolic 54–81; PULSE 65–73; RESP 18–19; TEMP 35.9–36.3; O2SAT 91–96; BMI 36.1
[2021-06-12] MEDS: Heparin Sodium,Porcine 5,000 UNIT/ML VIAL 5000 UNIT SUBCUT ×3 (06:09→21:41)
[2021-06-12 07:21] LABS: Glucose, Whole Blood 127 mg/dL (60-115)
--- NOTE | 2021-06-12 08:35 | MHC.CM.PN ---
Female 66 DX CVA s/p TPA 1st choice for STR is [facility]. I have reached out to see if we have a bed and authorization today. There is a DC order in for today. CM will follow.
[2021-06-12] MEDS: Insulin Glargine,Hum.rec.anlog 100 UNIT/ML 10 ML VIAL 20 UNIT SUBCUT (10:04)
[2021-06-12] MEDS: Sodium Bicarbonate 650 MG TABLET PO ×4 (10:05→21:41)
[2021-06-12] MEDS: Sodium Zirconium Cyclosilicate 10 GM POWD.PACK PO (10:05)
[2021-06-12] MEDS: Furosemide 20 MG TABLET PO (10:05)
[2021-06-12] MEDS: Calcium + Vitamin D 250 MG TABLET 500 MG PO ×2 (10:05→21:40)
[2021-06-12] MEDS: Clopidogrel Bisulfate 75 MG TABLET PO (10:06)
[2021-06-12] MEDS: carvediloL 3.125 MG TABLET PO ×2 (10:06→21:41)
[2021-06-12] MEDS: hydrALAZINE HCl 10 MG TABLET PO ×2 (10:06→21:41)
[2021-06-12] MEDS: Sertraline HCL 50 MG TABLET PO (10:06)
[2021-06-12] MEDS: Escitalopram Oxalate 10 MG TABLET PO (10:06)
[2021-06-12 11:14] LABS: Glucose, Whole Blood 234 mg/dL (60-115)
[2021-06-12 12:06] LABS: Anion Gap 14 (12-20); Blood Urea Nitrogen 43 mg/dL (9-16); Calcium 8.3 mg/dL (8.4-10.2); Carbon Dioxide 22 mmol/L (22-29); Chloride 108 mmol/L (96-108); Creatinine Clr Calc Pharmacy 20.4; Estimated Glomerular Filt Rate 17; Glucose Random 270 mg/dL (60-115); Potassium 4.2 mmol/L (3.3-5.1); Sodium 140 mmol/L (135-145)
[2021-06-12 12:12] LABS: B Type Natriuretic Peptide 1603 pg/mL (<100)
[2021-06-12] MEDS: Furosemide 20 MG/2 ML VIAL IVPUSH (12:32)
[2021-06-12] MEDS: Insulin Lispro 100 UNIT/ML 3 ML VIAL SUBCUT ×3 (12:32→21:41)
[2021-06-12] MEDS: Albuterol/Iprat 2.5/0.5MG 3 ML AMPUL.NEB INHALE (13:03)
--- NOTE | 2021-06-12 14:14 | P.PNIM_ITS ---
Subjective Subjective Date of Service: 06/12/21 Interval History: fu cva Review of Systems information taken with the help of film replacement orderer miss Blackman : Denies any new complaint of chest pain or abdominal pain or fever or chills or nausea or vomiting Denies any weakness or numbness. she is saying some subjective shortness of breath when I asked she says ?a little but she sitting and talking in the full sentences. has some dry cough Physical Exam Vital Signs: Vital Signs: Last Vital Signs Temp 97.4 F 06/12/21 12:00 Pulse 65 06/12/21 12:00 Resp 18 06/12/21 12:00 BP 141/80 H 06/12/21 12:00 Pulse Ox 96 06/12/21 12:00 Body Mass Index 36.1 physical exam: Appearance: Alert.? Oriented X3.? not in distress. cvs: rrr, [id number] , no murmur res: fair air entry , slightly diminshed at bases. abd: no rebound or guarding ,nt, bs present. neuro: axo3 , ? left sided defeciencies no longer appreciated left bka. Objective Data Active Medications Albuterol/Ipratropium (Albuterol/Iprat 2.5/0.5mg 3 Ml Ampul.Neb) 3 ml INHALE RQ6H WHILE AWAKE [facility] Last Admin: 06/12/21 13:03 Dose: 3 ml Documented by: LARISSA Albuterol/Ipratropium (Albuterol/Iprat 2.5/0.5mg 3 Ml Ampul.Neb) 3 ml INHALE RQ6H WHILE AWAKE [facility] Last Admin: 06/12/21 13:06 Dose: Not Given Documented by: LARISSA Non-Admin Reason: Duplicate Order Aspirin (Aspirin Enteric Coated 81 Mg Tablet.) 81 mg PO BEDTIME [facility] Last Admin: 06/11/21 20:52 Dose: 81 mg Documented by: GLADIS Atorvastatin Calcium (Atorvastatin Calcium 80 Mg Tablet) 80 mg PO BEDTIME [facility] Last Admin: 06/11/21 20:51 Dose: 80 mg Documented by: GLADIS Calcium Carbonate/Cholecalciferol (Calcium + Vitamin D 250 Mg Tablet) 500 mg PO BID [facility] Last Admin: 06/12/21 10:05 Dose: 500 mg Documented by: MAGGIE Carvedilol (Carvedilol 3.125 Mg Tablet) 3.125 mg PO BID [facility]; Protocol Last Admin: 06/12/21 10:06 Dose: 3.125 mg Documented by: MAGGIE Clopidogrel Bisulfate (Clopidogrel Bisulfate 75 Mg Tablet) 75 mg PO DAILY [facility] Last Admin: 06/12/21 10:06 Dose: 75 mg Documented by: MAGGIE Dextrose (Dextrose 50 % 25 Gm/50 Ml Vial) 25 gm IVPUSH Q15M PRN; Protocol PRN Reason: per Hypoglycemia Standing Ord. Escitalopram Oxalate (Escitalopram Oxalate 10 Mg Tablet) 10 mg PO DAILY [facility] Last Admin: 06/12/21 10:06 Dose: 10 mg Documented by: MAGGIE Furosemide (Furosemide 20 Mg Tablet) 20 mg PO DAILY [facility]; Protocol Last Admin: 06/12/21 10:05 Dose: 20 mg Documented by: MAGGIE Glucose (Glucose Gel 15 Gm Gel..Gram.) 15 gm PO Q15M PRN; Protocol PRN Reason: per Hypoglycemia Standing Ord. Heparin Sodium (Porcine) (Heparin Sodium,Porcine 5,000 Unit/Ml Vial) 5,000 unit SUBCUT Q8H [facility] Last Admin: 06/12/21 12:31 Dose: 5,000 unit Documented by: MAGGIE Hydralazine HCl (Hydralazine Hcl 10 Mg Tablet) 10 mg PO BID [facility]; Protocol Last Admin: 06/12/21 10:06 Dose: 10 mg Documented by: MAGGIE Insulin Glargine (Insulin Glargine,Hum.Rec.Anlog 100 Unit/Ml 10 Ml Vial) 20 unit SUBCUT DAILY [facility] Last Admin: 06/12/21 10:04 Dose: 20 unit Documented by: MAGGIE Insulin Human Lispro (Insulin Lispro 100 Unit/Ml 3 Ml Vial) 0 unit SUBCUT QIDACHS [facility]; Protocol Last Admin: 06/12/21 12:32 Dose: 4 unit Documented by: MAGGIE Loperamide HCl (Loperamide Hcl 2 Mg Capsule) 2 mg PO Q6H PRN PRN Reason: Diarrhea Last Admin: 06/08/21 12:44 Dose: 2 mg Documented by: COSME-ASKEP Sertraline HCl (Sertraline Hcl 50 Mg Tablet) 50 mg PO DAILY [facility] Last Admin: 06/12/21 10:06 Dose: 50 mg Documented by: MAGGIE Sodium Bicarbonate (Sodium Bicarbonate 650 Mg Tablet) 650 mg PO QID [facility] Last Admin: 06/12/21 12:31 Dose: 650 mg Documented by: MAGGIE Sodium Zirconium Cyclosilicate (Sodium Zirconium Cyclosilicate 10 Gm Powd.Pack) 10 gm PO DAILY [facility] Last Admin: 06/12/21 10:05 Dose: 10 gm Documented by: MAGGIE Trazodone HCl (Trazodone Hcl 50 Mg Tablet) 50 mg PO BEDTIME [facility] Last Admin: 06/11/21 20:53 Dose: 50 mg Documented by: GLADIS Labs CBC & Chem 7: 06/08/21 05:03 06/12/21 11:24 Labs: Laboratory Results - last 24 hr 06/11/21 06/11/21 06/12/21 15:53 19:57 07:16 Anion Gap Estim Creat Clear Calc Estimated GFR POC Glucose 195 H 182 H 127 H Random Glucose Calcium B-Natriuretic Peptide 06/12/21 06/12/21 06/12/21 11:10 11:23 11:24 Anion Gap 14 Estim Creat Clear Calc 20.4 Estimated GFR 17 POC Glucose 234 H Random Glucose 270 H Calcium 8.3 L B-Natriuretic Peptide 1603 H Assessment and Plan (1) GIL (acute kidney injury): Status: Acute (2) Acute CVA (cerebrovascular accident): Status: Acute Assessment and Plan: 66F presented with left sided weakness and numbness, given Tpa, mri showed small acute right thalamic infarct. CTA unremarkable, echo with normal EF grade 2 diastolic dysfunction, mild left atrial enlargement, mild , mild MR, severe pulmonary hypertension. she was monitored in ICU for 24 hours and downgraded to telemetry. 1.acute right thalamic cva s/p tpa evening of 06/04 started on dual antiplatelet 06/06 for 30 days then decrease to single antiplatelet high intensity statin PT/OT plan for eventual acute rehab 2.GIL on CKD IV with hyperkalemia hyperkalemia improved on lokelma dc fluids , monitor nephro following-d/w nephro : cautious use of lasix qother day started back lasix 3.DM insulin 4.HTN hydralazine coreg 5. sob-subjective ? unclear : Sats are fine 96% on room air, talking in full sentences chest x-ray seems negative lung exam is otherwise grossly normal except few diminished sound at the bases. Will give a trial of Lasix small dose since patient had received fluid few days back also added nebs, incentive spirometry, chest physiotherapy in case question of mild atelectasis since but breath sounds are diminished at bases on auscultation. 6.dvt prophylaxis -lovenox dispo: awaiting rehab placement Quality Stroke Does the patient have a stroke diagnosis?: Yes Reason for No Anti-thrombotic by Day Two: N/A - Med Ordered VTE Prior VTE?: No VTE Risk Level:: Medical - low VTE Device Contraindication: N/A - Device Ordered VTE Drug Contraindication: N/A - Med Ordered
--- NOTE | 2021-06-12 16:25 | PM.PNNEP ---
Subjective Subjective Date of Service: 06/12/21 Interval history: No acute events Cr near baseline Physical Exam Vital Signs: Vital Signs: Last Vital Signs Temp 97.2 F 06/12/21 15:47 Pulse 66 06/12/21 15:47 Resp 19 06/12/21 15:47 BP 176/68 H 06/12/21 15:47 Pulse Ox 91 L 06/12/21 15:47 Body Mass Index 36.1 Const: General: cooperative, comfortable and no acute distress Orientation/consciousness: patient oriented x3 Eyes: EOM: EOMs intact bilaterally Neck: Neck: Yes normal visual inspection and Yes supple Resp: Auscultation: diminished lung sounds Cardio: Jugular venous distension: no JVD Rate: regular rate GI: Palpation (GI): Soft to palpation Neuro: Other: She was alert and awake with normal spontaneity of speech fluency comprehension and affect. Many teeth were missing and that was affecting her speech. Into was performed with the help of an marshmallow machine worker. Pupils were about 3-4 mm round reactive. Extraocular muscles were intact. Visual wilkes are full. Face revealed mild right-sided facial flatness. Arthritic changes were noted in hands. She had difficulty lifting her left arm against gravity but she was able to lift it up. There was mild weakness of left hand. 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 Right leg strength against gravity was intact. Plantar was flexor. General: patient oriented x3 Objective Data Labs CBC & Chem 7: 06/08/21 05:03 06/12/21 11:24 Labs: Laboratory Results - last 24 hr 06/11/21 06/12/21 06/12/21 19:57 07:16 11:10 Sodium Potassium Chloride Carbon Dioxide Anion Gap BUN Creatinine Estim Creat Clear Calc Estimated GFR POC Glucose 182 H 127 H 234 H Random Glucose Calcium B-Natriuretic Peptide 06/12/21 06/12/21 11:23 11:24 Sodium 140 Potassium 4.2 Chloride 108 Carbon Dioxide 22 Anion Gap 14 BUN 43 H Creatinine 2.84 H Estim Creat Clear Calc 20.4 Estimated GFR 17 POC Glucose Random Glucose 270 H Calcium 8.3 L B-Natriuretic Peptide 1603 H Procedures Date of Service Date of Service: 06/12/21 Assessment & Plan Assessment and plan (1) Acute on chronic renal failure: Status: Acute Assessment and Plan: 66 year old female presented with left sided weakness and numbness, given Tpa, mri showed small acute right thalamic infarct. CTA unremarkable, echo with normal EF grade 2 diastolic dysfunction, mild left atrial enlargement, mild , mild MR, severe pulmonary hypertension. acute right thalamic cva s/p tpa evening of 06/04 GIL on CKD IV- improving likely had MOR from CTA; Serum creatinine better, bear baseline of 2.5-2.6mg/dL. Could be discharged from a renal perspective if there are no other medical contraindication Shall arrange close office follow up when D/Mian Time Spent With Patient Time: Total time spent is greater than 50% in coordination of care (as documented) at patient's floor/unit and/or counseling patient: Progress Note: Quality Stroke Does the patient have a stroke diagnosis?: Yes Reason for No Anti-thrombotic by Day Two: N/A - Med Ordered
[2021-06-12 16:39] LABS: Glucose, Whole Blood 232 mg/dL (60-115)
[2021-06-12 21:08] LABS: Glucose, Whole Blood 159 mg/dL (60-115)
[2021-06-12] MEDS: Atorvastatin Calcium 80 MG TABLET PO (21:41)
[2021-06-12] MEDS: traZODone HCL 50 MG TABLET PO (21:41)
[2021-06-12] MEDS: Aspirin Enteric Coated 81 MG TABLET.DR PO (21:48)
[2021-06-13 03:42] VITALS: BP 138/67; PULSE 67; RESP 18; TEMP 37; O2SAT 94
[2021-06-13 04:54] VITALS: BMI 36.1
[2021-06-13] MEDS: Heparin Sodium,Porcine 5,000 UNIT/ML VIAL 5000 UNIT SUBCUT ×3 (05:50→20:42)
[2021-06-13 07:46] LABS: Glucose, Whole Blood 129 mg/dL (60-115)
[2021-06-13 08:00] VITALS: BP 179/65; PULSE 69; RESP 17; TEMP 36.4; O2SAT 93
[2021-06-13] MEDS: Sertraline HCL 50 MG TABLET PO (08:14)
[2021-06-13] MEDS: Furosemide 20 MG TABLET PO (08:14)
[2021-06-13] MEDS: hydrALAZINE HCl 10 MG TABLET PO ×2 (08:14→20:41)
[2021-06-13] MEDS: Clopidogrel Bisulfate 75 MG TABLET PO (08:14)
[2021-06-13] MEDS: Escitalopram Oxalate 10 MG TABLET PO (08:15)
[2021-06-13] MEDS: carvediloL 3.125 MG TABLET PO (08:15)
[2021-06-13] MEDS: Calcium + Vitamin D 250 MG TABLET 500 MG PO ×2 (08:15→20:41)
[2021-06-13] MEDS: Sodium Zirconium Cyclosilicate 10 GM POWD.PACK PO (08:15)
[2021-06-13] MEDS: Sodium Bicarbonate 650 MG TABLET PO ×4 (08:16→20:41)
[2021-06-13] MEDS: Insulin Glargine,Hum.rec.anlog 100 UNIT/ML 10 ML VIAL 20 UNIT SUBCUT (09:13)
--- NOTE | 2021-06-13 10:27 | MHC.CM.PN ---
Noticed D/C order: insurance denial for acute rehab. [facility] is next choice and has not responded since 06/09/21. All other SNF referrals unable to accommodate for various reasons (no bed, no contract, etc). Connected with/updated Adelita (daughter), and discussed alternate choices. Adelita expressed interest in both [facility] [place] (more so than the [facility]) first, and then any/all Centers in the [facility]. Will place requested referrals and follow.
--- NOTE | 2021-06-13 10:55 | MHC.CM.PN ---
Both [facility] and [facility] have all responded and [facility] does not perform the authorization process over the W/Es. Also, all Centers do not have beds today as well. Requested that all Centers touch base early/first thing in am so that either one of them pursue auth manjeet or [facility] understands to move on w/D/C planning at alternate Centers. CM to follow.
[2021-06-13 11:24] LABS: Glucose, Whole Blood 154 mg/dL (60-115)
[2021-06-13 11:46] VITALS: BP 143/78; PULSE 64; RESP 18; TEMP 36.2; O2SAT 95
[2021-06-13] MEDS: Insulin Lispro 100 UNIT/ML 3 ML VIAL SUBCUT ×3 (11:46→20:42)
--- NOTE | 2021-06-13 13:46 | HO.PM.IMPN ---
Subjective Subjective Date of Service: 06/13/21 Interval History: follow up cva Review of Systems Denies any new complaint of chest pain or shortness of breath or abdominal pain or fever or chills or nausea or vomiting Denies any cough Denies any weakness or numbness. Physical Exam Vital Signs: Vital Signs: Last Vital Signs Temp 97.2 F 06/13/21 11:46 Pulse 64 06/13/21 11:46 Resp 18 06/13/21 11:46 BP 143/78 H 06/13/21 11:46 Pulse Ox 95 06/13/21 11:46 Body Mass Index 36.1 Appearance: Alert.? Oriented X3.? not in distress. cvs: rrr, [id number] , no murmur res: fair air entry , slightly diminshed at bases. abd: no rebound or guarding ,nt, bs present. neuro: axo3 , ? left sided defeciencies no longer appreciated left bka. Objective Data Active Medications Albuterol/Ipratropium (Albuterol/Iprat 2.5/0.5mg 3 Ml Ampul.Neb) 3 ml INHALE RQ6H WHILE AWAKE [facility] Last Admin: 06/13/21 07:50 Dose: Not Given Documented by: LARISSA Non-Admin Reason: pt unavail Aspirin (Aspirin Enteric Coated 81 Mg Tablet.) 81 mg PO BEDTIME [facility] Last Admin: 06/12/21 21:48 Dose: 81 mg Documented by: ARASH Atorvastatin Calcium (Atorvastatin Calcium 80 Mg Tablet) 80 mg PO BEDTIME [facility] Last Admin: 06/12/21 21:41 Dose: 80 mg Documented by: ARASH Calcium Carbonate/Cholecalciferol (Calcium + Vitamin D 250 Mg Tablet) 500 mg PO BID [facility] Last Admin: 06/13/21 08:15 Dose: 500 mg Documented by: ANGELIA Carvedilol (Carvedilol 3.125 Mg Tablet) 6.25 mg PO BID [facility]; Protocol Clopidogrel Bisulfate (Clopidogrel Bisulfate 75 Mg Tablet) 75 mg PO DAILY [facility] Last Admin: 06/13/21 08:14 Dose: 75 mg Documented by: ANGELIA Dextrose (Dextrose 50 % 25 Gm/50 Ml Vial) 25 gm IVPUSH Q15M PRN; Protocol PRN Reason: per Hypoglycemia Standing Ord. Escitalopram Oxalate (Escitalopram Oxalate 10 Mg Tablet) 10 mg PO DAILY [facility] Last Admin: 06/13/21 08:15 Dose: 10 mg Documented by: ANGELIA Furosemide (Furosemide 20 Mg Tablet) 20 mg PO DAILY [facility]; Protocol Last Admin: 06/13/21 08:14 Dose: 20 mg Documented by: ANGELIA Glucose (Glucose Gel 15 Gm Gel..Gram.) 15 gm PO Q15M PRN; Protocol PRN Reason: per Hypoglycemia Standing Ord. Heparin Sodium (Porcine) (Heparin Sodium,Porcine 5,000 Unit/Ml Vial) 5,000 unit SUBCUT Q8H [facility] Last Admin: 06/13/21 05:50 Dose: 5,000 unit Documented by: TRISHJ Hydralazine HCl (Hydralazine Hcl 10 Mg Tablet) 10 mg PO BID [facility]; Protocol Last Admin: 06/13/21 08:14 Dose: 10 mg Documented by: ANGELIA Insulin Glargine (Insulin Glargine,Hum.Rec.Anlog 100 Unit/Ml 10 Ml Vial) 20 unit SUBCUT DAILY [facility] Last Admin: 06/13/21 09:13 Dose: 20 unit Documented by: ANGELIA Insulin Human Lispro (Insulin Lispro 100 Unit/Ml 3 Ml Vial) 0 unit SUBCUT QIDACHS [facility]; Protocol Last Admin: 06/13/21 11:46 Dose: 2 unit Documented by: ANGELIA Loperamide HCl (Loperamide Hcl 2 Mg Capsule) 2 mg PO Q6H PRN PRN Reason: Diarrhea Last Admin: 06/08/21 12:44 Dose: 2 mg Documented by: DC Sertraline HCl (Sertraline Hcl 50 Mg Tablet) 50 mg PO DAILY [facility] Last Admin: 06/13/21 08:14 Dose: 50 mg Documented by: ANGELIA Sodium Bicarbonate (Sodium Bicarbonate 650 Mg Tablet) 650 mg PO QID [facility] Last Admin: 06/13/21 08:16 Dose: 650 mg Documented by: ANGELIA Sodium Zirconium Cyclosilicate (Sodium Zirconium Cyclosilicate 10 Gm Powd.Pack) 10 gm PO DAILY [facility] Last Admin: 06/13/21 08:15 Dose: 10 gm Documented by: ANGELIA Trazodone HCl (Trazodone Hcl 50 Mg Tablet) 50 mg PO BEDTIME [facility] Last Admin: 06/12/21 21:41 Dose: 50 mg Documented by: TRISHJ Labs CBC & Chem 7: 06/08/21 05:03 06/12/21 11:24 Labs: Laboratory Results - last 24 hr 06/12/21 06/12/21 06/13/21 16:28 20:42 07:13 POC Glucose 232 H 159 H 129 H 06/13/21 11:19 POC Glucose 154 H Assessment and Plan (1) Acute CVA (cerebrovascular accident): Status: Acute Assessment and Plan: 66F presented with left sided weakness and numbness, given Tpa, mri showed small acute right thalamic infarct. CTA unremarkable, echo with normal EF grade 2 diastolic dysfunction, mild left atrial enlargement, mild , mild MR, severe pulmonary hypertension. she was monitored in ICU for 24 hours and downgraded to telemetry. 1.acute right thalamic cva s/p tpa evening of 06/04 started on dual antiplatelet 06/06 for 30 days then decrease to single antiplatelet high intensity statin PT/OT plan for eventual acute rehab 2.GIL on CKD IV with hyperkalemia hyperkalemia improved on lokelma dc fluids , monitor nephro following-d/w nephro : cautious use of lasix qother day started back lasix 3.DM insulin 4.HTN hydralazine coreg 5. sob-seems imrpoved ? atelactasis vs subjective continue chest physio, incentive tad, nebs 6.dvt prophylaxis -s/c heparin dispo: awaiting rehab placement Quality Stroke Does the patient have a stroke diagnosis?: Yes Reason for No Anti-thrombotic by Day Two: N/A - Med Ordered VTE Prior VTE?: No VTE Risk Level:: Medical - low VTE Device Contraindication: N/A - Device Ordered VTE Drug Contraindication: N/A - Med Ordered
[2021-06-13 15:20] VITALS: BP 134/65; PULSE 67; RESP 18; TEMP 36.9; O2SAT 94
[2021-06-13 15:53] LABS: Glucose, Whole Blood 175 mg/dL (60-115)
--- NOTE | 2021-06-13 16:46 | PM.PNNEP ---
Subjective Subjective Date of Service: 06/13/21 Interval history: no acute events no complaints Physical Exam Vital Signs: Vital Signs: Last Vital Signs Temp 98.5 F 06/13/21 15:20 Pulse 67 06/13/21 15:20 Resp 18 06/13/21 15:20 BP 134/65 06/13/21 15:20 Pulse Ox 94 06/13/21 15:20 Body Mass Index 36.1 Const: General: cooperative, comfortable and no acute distress Orientation/consciousness: patient oriented x3 Eyes: EOM: EOMs intact bilaterally Neck: Neck: Yes normal visual inspection and Yes supple Resp: Auscultation: diminished lung sounds Cardio: Jugular venous distension: no JVD Rate: regular rate GI: Palpation (GI): Soft to palpation Neuro: Other: She was alert and awake with normal spontaneity of speech fluency comprehension and affect. Many teeth were missing and that was affecting her speech. Into was performed with the help of an bus company manager. Pupils were about 3-4 mm round reactive. Extraocular muscles were intact. Visual wilkes are full. Face revealed mild right-sided facial flatness. Arthritic changes were noted in hands. She had difficulty lifting her left arm against gravity but she was able to lift it up. There was mild weakness of left hand. 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 Right leg strength against gravity was intact. Plantar was flexor. General: patient oriented x3 Objective Data Labs CBC & Chem 7: 06/08/21 05:03 06/12/21 11:24 Labs: Laboratory Results - last 24 hr 06/12/21 06/13/21 06/13/21 20:42 07:13 11:19 POC Glucose 159 H 129 H 154 H 06/13/21 15:49 POC Glucose 175 H Procedures Date of Service Date of Service: 06/13/21 Assessment & Plan Assessment and plan (1) Acute on chronic renal failure: Status: Acute Assessment and Plan: 66 year old female presented with left sided weakness and numbness, given Tpa, mri showed small acute right thalamic infarct. CTA unremarkable, echo with normal EF grade 2 diastolic dysfunction, mild left atrial enlargement, mild , mild MR, severe pulmonary hypertension. acute right thalamic cva s/p tpa evening of 06/04 GIL on CKD IV- improving likely had MOR from CTA; Serum creatinine better, bear baseline of 2.5-2.6mg/dL. Could be discharged from a renal perspective if there are no other medical contraindication Shall arrange close office follow up when D/Mian Time Spent With Patient Time: Total time spent is greater than 50% in coordination of care (as documented) at patient's floor/unit and/or counseling patient: Progress Note: Quality Stroke Does the patient have a stroke diagnosis?: Yes Reason for No Anti-thrombotic by Day Two: N/A - Med Ordered
[2021-06-13 19:22] VITALS: BP 137/85; PULSE 67; RESP 18; TEMP 36.9; O2SAT 94
[2021-06-13 19:49] LABS: Glucose, Whole Blood 151 mg/dL (60-115)
[2021-06-13] MEDS: traZODone HCL 50 MG TABLET PO (20:41)
[2021-06-13] MEDS: Aspirin Enteric Coated 81 MG TABLET.DR PO (20:41)
[2021-06-13] MEDS: Atorvastatin Calcium 80 MG TABLET PO (20:41)
[2021-06-13] MEDS: carvediloL 3.125 MG TABLET 6.25 MG PO (20:42)
[2021-06-13 23:58] VITALS: BP 150/63; PULSE 60; RESP 18; TEMP 36.5; O2SAT 94
[2021-06-14] VITALS (9 sets, daily range): BP systolic 144–185; BP diastolic 57–80; PULSE 60–67; RESP 18; TEMP 35.9–36.5; O2SAT 91–98; BMI 35.4
[2021-06-14] MEDS: Heparin Sodium,Porcine 5,000 UNIT/ML VIAL 5000 UNIT SUBCUT (06:21)
[2021-06-14] MEDS: Albuterol/Iprat 2.5/0.5MG 3 ML AMPUL.NEB INHALE (07:32)
[2021-06-14 07:46] LABS: Glucose, Whole Blood 86 mg/dL (60-115)
[2021-06-14] MEDS: Insulin Glargine,Hum.rec.anlog 100 UNIT/ML 10 ML VIAL 20 UNIT SUBCUT (07:54)
[2021-06-14] MEDS: Furosemide 20 MG TABLET PO (07:54)
[2021-06-14] MEDS: Sodium Zirconium Cyclosilicate 10 GM POWD.PACK PO (07:54)
[2021-06-14] MEDS: Calcium + Vitamin D 250 MG TABLET 500 MG PO (07:55)
[2021-06-14] MEDS: Sertraline HCL 50 MG TABLET PO (07:55)
[2021-06-14] MEDS: hydrALAZINE HCl 10 MG TABLET PO (07:55)
[2021-06-14] MEDS: Clopidogrel Bisulfate 75 MG TABLET PO (07:55)
[2021-06-14] MEDS: Escitalopram Oxalate 10 MG TABLET PO (07:55)
[2021-06-14] MEDS: Sodium Bicarbonate 650 MG TABLET PO ×2 (07:55→13:55)
[2021-06-14] MEDS: carvediloL 3.125 MG TABLET 6.25 MG PO (07:55)
--- NOTE | 2021-06-14 10:22 | MHC.CM.PN ---
CM INFORMED PT NOW AT BASELINE AND WILL BE CLEARED TO DC HOME. FAMILY TO TRANSPORT
[2021-06-14 11:09] LABS: Glucose, Whole Blood 131 mg/dL (60-115)
[2021-06-14] MEDS: amLODIPine Besylate 2.5 MG TABLET PO (11:22)
--- NOTE | 2021-06-14 11:32 | PM.PNNEP ---
Subjective Subjective Date of Service: 06/14/21 Interval history: Events noted. All recent data reviewed; D/W Med Attending Physical Exam Vital Signs: Vital Signs: Last Vital Signs Temp 96.7 F L 06/14/21 07:06 Pulse 63 06/14/21 11:22 Resp 18 06/14/21 07:06 BP 172/70 H 06/14/21 11:22 Pulse Ox 91 L 06/14/21 10:22 Body Mass Index 35.4 Const: General: no acute distress Orientation/consciousness: patient oriented x3 Eyes: EOM: EOMs intact bilaterally Neck: Neck: Yes supple Resp: Auscultation: diminished lung sounds Cardio: Rate: regular rate GI: Palpation (GI): Soft to palpation Neuro: General: patient oriented x3 Objective Data Labs CBC & Chem 7: 06/08/21 05:03 06/12/21 11:24 Labs: Laboratory Results - last 24 hr 06/13/21 06/13/21 06/14/21 15:49 19:43 07:04 POC Glucose 175 H 151 H 86 06/14/21 11:04 POC Glucose 131 H Procedures Date of Service Date of Service: 06/14/21 Assessment & Plan Assessment and plan (1) GIL (acute kidney injury): Status: Acute Assessment and Plan: 66 year old female presented with left sided weakness and numbness, given Tpa, mri showed small acute right thalamic infarct. CTA unremarkable, echo with normal EF grade 2 diastolic dysfunction, mild left atrial enlargement, mild , mild MR, severe pulmonary hypertension. acute right thalamic cva s/p tpa evening of 06/04 GIL on CKD IV- improved likely had MOR from CTA; Serum creatinine better, bear baseline of 2.5-2.6mg/dL. Added Amlodipine Could be discharged from a renal perspective if there are no other medical contraindication Shall arrange close office follow up when D/Mian Time Spent With Patient Time: Total time spent is greater than 50% in coordination of care (as documented) at patient's floor/unit and/or counseling patient: Progress Note: Quality Stroke Does the patient have a stroke diagnosis?: Yes Reason for No Anti-thrombotic by Day Two: N/A - Med Ordered
--- NOTE | 2021-06-14 12:24 | P.F2F_ITS ---
Service Date Service Date: 06/14/21 Encounter Date of encounter: 06/14/21 Encounter: ckd , cva , htn Reasons for Services MD Overseeing Care: Alexys Avila Homebound: Leaving the home is medically contraindicated at this time without the asist of a device and/or another person due th the listed conditions above and below. Homebound supporting statement: Patient had recent CVA, hypertension control, also generalized weak post hospitalization and needed help for appointments. Certification: Based on the above findings, I certify that this patient is confined to the home and needs intermittent assisted care, physical therapy and/or speech therapy, or continues to need occupational therapy. The patient is under my care, and I have initiated the establishment of the plan of care. The patient will be followed by a physician who will periodically review the plan of care.
--- NOTE | 2021-06-14 13:30 | MHC.CM.PN ---
CM MET WITH PT WITH THE ASSISTANCE OF [facility] ONLINE RETAILER. PT REPORTS FEELING WELL NOW AND WANTING TO DC HOME. PT IS AWARE [facility] SERVICES ARE BEING RECOMMENDED AND SHE REQUESTS A REFERRAL TO [facility]. REFERRAL MADE. FOLLOW UP IMM REVIEWED PT WILL DC HOME TODAY WITH RESUMPTION OF EXTENSION WORK INSTRUCTOR AND NEW [facility] SERVICES
--- NOTE | 2021-06-26 07:40 | P.DS_ITS ---
DS: Providers Provider Date of Service: 06/14/21 Date of admission: 06/05/21 00:36 Date of discharge: 06/14/21 Primary care physician: Alexys Avila MD Consults: 06/05/21 00:36 Consult to Neurology Routine Consulting Provider: Matias Mclean Reason for consultation: stroke Has provider been notified: No 06/06/21 09:39 Consult to Nephrology Routine Consulting Provider: Mikey Pang Reason for consultation: ckd, hyperkalemia DS: Diagnosis Discharge Diagnosis (1) GIL (acute kidney injury): Status: Acute DS: Summary Hospital Course Hospital Course: 66-year-old female has underlying history of anemia, chronic kidney disease stage 3-4 congestive heart failure, diabetes type 2, hypertension, GERD, hyperlipidemia, nonischemic cardiomyopathy among others.? Patient presented via EMS with complaints of weakness of the left side, numbness of the left face and left body as well as difficulty speaking which started around 9-9 3:00 p.m. shad barry also had a right-sided headache 7/10, pounding without any visual difficulties and she felt like she was going to pass out.? Upon arrival to the emergency room, stroke protocol was activated, the patient was evaluated with an NIH of 3, CT of the head showed no hemorrhage, Neurology was consulted and tPA was administered at 10:55 p.m..? Further?workup revealed a white count of 11.9, H&H of 9.4 and 30 respectively.? Platelet count was 204, INR 1.1, sodium 133, potassium 6.7, carbon dioxide 18, BUN 52, creatinine 2.72 (baseline) glucose 195, calcium 8.1, alk phos 151. COVID negative. ?Patient was treated with calcium gluconate, insulin and an amp of D50. Head CT as well as head and neck CTA did not show any evidence of acute infarct or large vessel occlusion. Hospital course: 66F presented with left sided weakness and numbness, given Tpa, mri showed small acute right thalamic infarct. CTA unremarkable, echo with normal EF grade 2 diastolic dysfunction, mild left atrial enlargement, mild , mild MR, severe pulmonary hypertension. she was monitored in ICU for 24 hours and downgraded to telemetry. 1.acute right thalamic cva-s/p tpa evening of 06/04 started on dual antiplatelet 06/06 for 30 days then decrease to single antiplatelet, statin,subsequently switched to dual platelet therapy-patient will need dual anti platelet therapy-after 1 month her patient can drop back to 1 antiplatelet agent. PT/Ot-initial plan was to send the patient to rehab but did not qualify for acute rehab initially but subsequently PT OT these continue to see the patient while the patient was inpatient and she seems to be near her baseline function [place] so recommended to go home. 2.Gil on CKD: Seems to be improving with holding Lasix also gentle fluids mauryi ng this admission, seen by Nephrology needs to follow up outpatient with Nephrology. Monitor BMP in rehab in next 2-3 days . Nephrology recommended to start her Lasix upon discharge. Above management discussed with the patient in detail length she understand and in agreement with the above plan, time spent 50 minutes and 50% time spent on counseling. Significant findings: As above. Procedures performed: None. Treatment and response: As above. Complications: None. Time Spent with Patient Time attestation: Total time spent providing and/or coordinating discharge services: Discharge coordination time: Greater than 30 minutes Quality: Stroke Does the patient have a stroke diagnosis?: Yes Reason for No Anti-thrombotic at DC: N/A - Med Ordered Reason for No Anticoagulant at DC: N/A - Med Ordered Reason Not Initiating IV-Tpa: N/A - Med Ordered Reason for No Anti-thrombotic by Day Two: N/A - Med Ordered Reason for No Statin at DC: N/A - Med Ordered Physical Exam Vital Signs: Vital Signs: Last Vital Signs Temp 96.7 F L 06/14/21 07:06 Pulse 60 06/14/21 11:51 Resp 18 06/14/21 11:51 BP 164/70 H 06/14/21 13:01 Pulse Ox 98 06/14/21 11:51 Body Mass Index 35.4 ? Appearance: Alert.? Oriented X3.? not in distress. cvs: rrr, [id number] , no murmur res: fair air entry , slightly diminshed at bases. abd: no rebound or guarding ,nt, bs present. neuro: axo3 , ? left sided defeciencies no longer appreciated left bka. DS: Data Data Completed and Pending Completed studies during hospitalization [Text1]: Procedures Introduction of Other Thrombolytic into Peripheral Vein, Percutaneous Approach (06/05/21) Transfusion of Nonautologous Red Blood Cells into Peripheral Vein, Percutaneous Approach (12/24/20) Discharge Plan Discharge Patient Disposition: Home Health Service Discharge Diagnosis: cva, gil Referrals: [facility] [Outside] - 1 Week Aleyxs Avila MD [Primary Care Provider] - 1 Week Mikey Pang MD [Physician] - 1 Week (follow up in 2 weeks) Matias Mclean MD [Physician] - 1 Week (follow up in 2 weeks ) Discharge Medications: Discontinued carvedilol 3.125 mg tablet 3.125 mg PO BID 90 Days Qty: 180 RF: 3 rosuvastatin 20 mg tablet 1 tab PO QPM RF: 0 No Action atorvastatin 80 mg tablet 80 mg PO QPM RF: 0 trazodone 50 mg tablet 50 mg PO BEDTIME RF: 0 amlodipine 2.5 mg tablet 2.5 mg PO QAM RF: 0 clopidogrel 75 mg tablet 75 mg PO QAM RF: 0 aspirin 81 mg tablet,delayed release (DR/EC) 81 mg PO QPM RF: 0 magnesium oxide 400 mg (241.3 mg magnesium) tablet 400 mg PO BID RF: 0 sodium bicarbonate 650 mg tablet 650 mg PO QID RF: 0 gabapentin 100 mg capsule 100 mg PO BID RF: 0 sertraline 50 mg tablet 50 mg PO DAILY RF: 0 insulin aspart U-100 [Novolog Flexpen U-100 Insulin] 100 unit/mL (3 mL) ins ulin pen 8 - 24 unit subcut TID RF: 0 calcium carbonate-vitamin D3 600 mg(1,500mg) -400 unit tablet 600 tab PO BID RF: 0 Lantus Solostar U-100 Insulin 100 unit/mL (3 mL) insulin pen 64 unit subcut DAILY RF: 0 hydralazine 25 mg Tablet 25 mg PO BID Qty: 60 RF: 0 furosemide [Lasix] 40 mg tablet 40 mg PO BID Qty: 60 RF: 0 Discharge Orders: Discharge Order (Routine); Ordered 06/10/21 Ordered By: Mamadou Mixon Diet: advance to usual diet and diabetic diet Activity on Discharge: As tolerated Stand Alone Forms: Patient Portal Discharge page Care Plan Goals: Patient came with the CVA acute had tPA, subsequently switched to dual platelet therapy-patient will need dual anti platelet therapy-after 1 month her patient can drop back to 1 antiplatelet agent. Gil on CKD: Seems to be improving with holding Lasix also gentle fluids during this admission, seen by Nephrology needs to follow up outpatient with Nephrology. Monitor BMP in rehab in next 2-3 days . Nephrology recommended to start her Lasix upon discharge. Health Concerns: As above. Plan of Treatment: As above. Assessment: As above. Discharge Date/Time: 06/14/21 14:45
== END 2021-06-14 14:45 | disposition home health service (06) | DRG 62 ==
LOC: HO.ED 06-05 00:20 → HO.ICU 06-05 00:59 → HO.IMC 06-08 05:46
PROVIDERS: Internal Medicine; Internal Medicine Nephrology; Admitting Provider Physician Assistant Medical; Emergency Provider Emergency Medicine; PCP Internal Medicine; Visit Provider Internal Medicine
DX: I63.89 Other cerebral infarction (principal); G81.94 Hemiplegia, unspecified affecting left nondominant side; N17.9 Acute kidney failure, unspecified; N18.4 Chronic kidney disease, stage 4 (severe); R29.703 NIHSS score 3; E83.42 Hypomagnesemia; R20.0 Anesthesia of skin; E87.5 Hyperkalemia; D63.1 Anemia in chronic kidney disease; I12.9 Hypertensive chronic kidney disease with stage 1 through stage 4 chronic kidney disease, or unspecified chronic kidney disease; E11.22 Type 2 diabetes mellitus with diabetic chronic kidney disease; R06.02 Shortness of breath; Z20.822 Contact with and (suspected) exposure to COVID-19; Z79.4 Long term (current) use of insulin; Z79.01 Long term (current) use of anticoagulants; Z79.82 Long term (current) use of aspirin; Z79.899 Other long term (current) drug therapy; Z89.512 Acquired absence of left leg below knee
CPT/HCPCS: 36415; 70450; 70496; 70498; 70551; 71045; 80048; 80053; 80061; 80076; 81001; 82043; 82077; 82947; 83735; 83880; 83935; 84100; 84300; 84484; 85025; 85027; 85610; 87635; 93005; 93306; 94640; 96361; 96365; 96366; 96367; 96375; 97110; 97163; 97167; 97535; 99285; 99291; 99292; J0610; J1650; J1940; J2997; J3475; Q9967

== ENCOUNTER 2021-06-20 21:42 | Inpatient (IN) | payer MEDICARE, SELFPAY ==
--- NOTE | ~2021-06-20 | XR_ITS ---
EXAMINATION: XR CHEST CLINICAL INFORMATION: SOB. COMPARISON: Chest 06/12/2021 TECHNIQUE: Frontal view of the chest was obtained. FINDINGS: The lungs are well-expanded and clear of acute pneumonic process. There is mild cardiac [place] with increased pulmonary vascularity suggestive of congestion. No gross bony abnormality seen. XR/XR chest 1V IMPRESSION: Cardiomegaly with mild pulmonary vascular congestion.
--- NOTE | ~2021-06-20 | US_ITS ---
EXAMINATION: US VENOUS ULTRASOUND WITH DOPPLER LOWER EXTREMITY, RIGHT CLINICAL INFORMATION: Swelling COMPARISON: Previous exam October 2019 TECHNIQUE: Ultrasound of the deep veins is performed from the hip to the calf with compression sonography and color and pulse Doppler assessment. Spectral analysis with color-flow imaging is performed. FINDINGS: There is normal venous compression and respiratory variation and augmented flow. The visualized common femoral vein, superficial femoral vein, profunda femoral vein, popliteal vein, and the trifurcation region shows no evidence of deep venous thrombosis. There is no popliteal fossa cyst. US/US venous duplex LE RT IMPRESSION: No DVT demonstrated in the right lower extremity.
--- NOTE | ~2021-06-20 | NM_ITS ---
EXAMINATION: NM LUNG IMAGE PERFUSION CLINICAL INFORMATION: SOB. Rule out PE. COMPARISON: Chest 06/20/2021 TECHNIQUE: Following intravenous administration of 4 mCi of 90 9M technetium MAA, imaging of both lungs were obtained multiple projections. FINDINGS: On perfusion scan there is no segmental or subsegmental defects seen to suspect any PE. Nonsegmental defects seen in the lingula corresponding to the heart shadow. Ventilation study was not performed. NM/ND pul perfusion IMPRESSION: No evidence of PE.
--- NOTE | 2021-06-20 21:45 | ECG_ITS ---
Test Reason : DYSPNEA Blood Pressure : / mmHG Vent. Rate : 062 BPM Atrial Rate : 062 BPM P-R Int : 148 ms QRS Dur : 118 ms QT Int : 474 ms P-R-T Axes : 068 -02 224 degrees QTc Int : 481 ms Normal sinus rhythm Septal infarct , age undetermined ST & T wave abnormality, consider inferolateral ischemia Abnormal ECG When compared with ECG of 04-JUN-2021 22:43, QRS duration has decreased Septal infarct is now Present Referred By: Generic ED Physician Electronically Signed By:KALANI TOLEDO
[2021-06-20 21:48] VITALS: BP 125/80; PULSE 64; O2SAT 93
[2021-06-20 22:03] VITALS: BP 116/54; PULSE 63; RESP 20; TEMP 37.2; O2SAT 95; BMI 35.5
[2021-06-20 22:06] LABS: MANUAL DIFF FLAG NO
[2021-06-20 22:09] LABS: Basophils Percent Auto 0.3 % (0-2); Eosinophils Absolute Auto 0.5 X10*3/uL (0.0-0.4); Eosinophils Percent Auto 4.4 % (0-4); Hemoglobin 7.6 g/dl (12.0-16.0); Imm Gran Abs Auto 0.03 X10*3/uL (0.00-0.03); Imm Gran Pct Auto 0.3 % (0.0-0.4); Lymphocytes Absolute Auto 2.3 X10*3/uL (1.2-4.9); Lymphocytes Percent Auto 22.1 % (20-40); Mean Corpuscular HGB Conc 30.4 g/dl (31.0-35.0); Mean Corpuscular Hemoglobin 26.2 pg (27.0-33.0); Mean Corpuscular Volume 86.2 fL (80-98); Mean Platelet Volume 10.1 fL (9.4-12.3); Monocytes Absolute Auto 0.8 X10*3/uL (0.1-1.2); Monocytes Percent Auto 7.9 % (2-11); Neutrophils Absolute Auto 6.6 X10*3/uL (2.0-8.3); Platelet Count 229 X10*3/uL (160-400); Red Cell Distribution Width 14.5 % (11.0-16.0); White Blood Count 10.2 X10*3/uL (4.8-10.8)
--- NOTE | 2021-06-20 22:13 | PC.NURSE ---
Filament Tester at bedside with this RN for Triage. Labs and Covid obtained and sent. Pt reporting SOB on RA despite O2 sat of 95%. Pt -> O2 via NC @ 2 lpm satting @ 100%. Pt awaiting primary MD ernst.
[2021-06-20 22:14] VITALS: O2SAT 100
--- NOTE | 2021-06-20 22:16 | PC.NURSE ---
technical operator at bedside for EKG.
[2021-06-20 22:22] LABS: COVID-19 Test Negative (Negative)
[2021-06-20 22:33] LABS: B Type Natriuretic Peptide 1091 pg/mL (<100)
[2021-06-20 22:34] LABS: Anion Gap 13 (12-20); Blood Urea Nitrogen 37 mg/dL (9-16); Calcium 8.3 mg/dL (8.4-10.2); Carbon Dioxide 24 mmol/L (22-29); Chloride 109 mmol/L (96-108); Creatinine Clr Calc Pharmacy 20.6; Estimated Glomerular Filt Rate 21; Glucose Random 59 mg/dL (60-115); Potassium 4.8 mmol/L (3.3-5.1); Sodium 141 mmol/L (135-145); Troponin-I High Sensitivity 27.8 ng/L (<3.5-17.0)
--- NOTE | 2021-06-20 22:36 | PC.NURSE ---
Pt provided with juice and crackers due to random glucose of 59. Awaiting primary MD ernst.
--- NOTE | 2021-06-20 22:47 | PC.NURSE ---
at bedside for primary eval.
--- NOTE | 2021-06-20 22:55 | ED.SOB ---
HPI - SOB/Dyspnea General Chief Complaint: Dyspnea Stated Complaint: sob Time Seen by Provider: 06/20/21 22:39 Source: patient, EMS and hand carver Mode of arrival: EMS Limitations: no limitations History of Present Illness HPI Narrative: 66 years old female came in for evaluation of shortness of breath for the past 3 days. There is 66-year-old female with past medical history of CKD/CVA presented with 3 days history of shortness of breath, described as constant, symptoms described as severe 7/10, worsening when she lay supine, notice increased swelling in her legs. Patient has a recent hospitalization which make the patient at risk for PE also. Patient declined chest pain. Related Data Home Medications Medication Instructions Recorded Confirmed amlodipine 2.5 mg tablet 2.5 mg PO QAM 06/20/21 06/20/21 aspirin 81 mg tablet,delayed 81 mg PO QPM 06/20/21 06/20/21 release atorvastatin 80 mg tablet 80 mg PO QPM 06/20/21 06/20/21 calcium carbonate 600 mg (1,500 600 tab PO BID 06/20/21 06/20/21 mg)-vitamin D3 400 unit tablet clopidogrel 75 mg tablet 75 mg PO QAM 06/20/21 06/20/21 furosemide 20 mg tablet 0.5 tab PO Q OTHER DAY 06/20/21 06/20/21 gabapentin 100 mg capsule 100 cap PO BID 06/20/21 06/20/21 hydralazine 10 mg tablet 10 mg PO BID 06/20/21 06/20/21 insulin aspart U-100 100 unit/mL 8 - 24 unit SUBCUT TID 06/20/21 06/20/21 (3 mL) subcutaneous pen (Novolog Flexpen U-100 Insulin aspart) insulin glargine 100 unit/mL (3 64 unit SUBCUT DAILY 06/20/21 06/20/21 mL) subcutaneous pen (Lantus Solostar U-100 Insulin) magnesium oxide 400 mg (241.3 mg 400 mg PO BID 06/20/21 06/20/21 magnesium) tablet sertraline 50 mg tablet 50 mg PO DAILY 06/20/21 06/20/21 sodium bicarbonate 650 mg tablet 650 mg PO QID 06/20/21 06/20/21 trazodone 50 mg tablet 50 mg PO BEDTIME 06/20/21 06/20/21 Allergies Allergy/AdvReac Type Severity Reaction Status Date / Time latex [LATEX] Allergy Intermediate ITCHY Verified 02/25/21 09:16 Review of Systems Review of Systems: All other systems are reviewed and are negative Constitutional: Reports as per HPI and Reports no additional constitutional complaints Eyes: Reports as per HPI and Reports no additional eye complaints Reports system reviewed and no additional complaints, except as documented Cardiovascular: Reports as per HPI and Reports no additional cardiovascular complaints Respiratory: Reports as per HPI and Reports no additional respiratory complaints Gastrointestinal: Reports as per HPI and Reports no additional gastrointestinal complaints Genitourinary: Reports no additional female genitourinary complaints Musculoskeletal: Reports no additional musculoskeletal complaints Skin/Breast: Reports system reviewed and no additional complaints, except as docu Psychiatric: Reports no additional psychiatric complaints Endocrine: Reports no additional endocrine complaints Hematologic/Lymphatic: Reports no additional hematologic/lymphatic complaints Allergic/Immunologic: Reports no additional allergic/immunologic complaints Reports system reviewed and no additional complaints, except as documented and Reports Abnormal speech present COUNTS INCLUDE 234 BEDS AT THE [facility] Past Medical History Medical History Anemia Blister of finger without infection Cholecystectomy planned CKD (chronic kidney disease) Congestive heart failure Diabetes Diabetes mellitus Essential hypertension GERD (gastroesophageal reflux disease) Hernia HLD (hyperlipidemia) HTN (hypertension) Nonischemic cardiomyopathy Other and unspecified hyperlipidemia Type 2 diabetes mellitus with unspecified complications Surgical History H/O: hysterectomy History of esophagogastroduodenoscopy (EGD) Hx of colonoscopy Hx of eye surgery Family History Family History Father Lung cancer Mother Diabetes HTN (hypertension) Heart disease Sister Diabetes Heart disease Brother Heart disease Son Diabetes Daughter Diabetes Social History Social History Household Members: Family Household Members Other:: grandchild Housing: Apartment Do you presently have visiting nurse or other home services: No Alcohol intake: never Patient Tobacco Use Status: Never used Tobacco Advance Directives: No Advance Directives Information Provided: No service: No Current occupational status: disabled Physical Exam Vital Signs: Vital Signs: Last Vital Signs Temp 98.9 F 06/20/21 22:03 Pulse 65 06/20/21 23:27 Resp 24 H 06/20/21 23:27 BP 132/54 L 06/20/21 23:27 Pulse Ox 100 06/20/21 23:27 Body Mass Index 35.5 Vital signs have been reviewed as appeared to be correct. Blood pressure normal. Heart rate normal. Respiration rate normal. Temperature normal. Oxygen saturation normal. Appearance: Alert. Oriented X3. No acute distress. Head: Normal external exam. Normocephalic. Atraumatic. No Jones signs noted. No raccoon eyes noted Eyes: PERRLA. EOMI. Conjunctiva and sclera normal. Eyelids normal. ENT: TM's Normal. Pharynx normal. Uvula midline. Moist mucous membranes. No trismus noted. No drooling noted. No muffled voice noted. Neck: Normal inspection. Neck supple. FROM. No adenopathy. Thyroid Normal. No meningeal signs. No neck mass noted. CVS: Normal heart rate and rhythm. Heart sound normal. No murmurs noted. Pulses normal throughout. Bilateral basilar rales. Respiratory: No respiratory distress. Painless inspiration. Breath sounds normal. No wheezes/rhonchi noted. Chest nontender. No accessory muscle usage noted or decreased air movement noted. Abdomen: Soft and nontender. Bowel sounds normal in all 4 quadrants. No distention noted. No organomegaly noted. No visible injury noted. Back: No CVA tenderness. Full range of motion noted. Skin: Skin warm and dry. Normal skin color. Normal skin turgor. No rashes/lesions/lacerations noted. Extremities:+2 bilateral pitting lower extremity edema. Status post left BKA, exhibit normal range of motion. Extremities nontender. Neuro: Oriented X 3. Cranial nerve exam: II-XII are grossly intact No motor deficit. No sensory deficit. Reflexes normal. Course Course Course Narrative: Assessment and plan. 66-year-old female history of anemia/CVA/CKD came in with shortness of breath physical exam is consistent with congestive heart failure, because recent hospitalization and recent CVA patient at risk for PE will check D-dimer if it is elevated will give 1 prophylactic dose of Lovenox and consider V/Q scan in the a.m. tomorrow however given normal respiratory rate and heart rate and unchanged EKG making PE is unfavorable diagnosis. Chronic elevation of troponin with no EKG changes thought to be secondary to chronic renal failure. MDM - SOB/Dyspnea Lab Data Attestation: I reviewed the patient's lab results. Result diagrams: 06/20/21 22:06/20/21 22: Labs: Lab Results 06/20/21 06/20/21 06/20/21 Range/Units 22:01 22:01 22:01 WBC 10.2 (4.8-10.8) X10*3/uL RBC 2.90 L (4.20-5.50) X10*6/uL Hgb 7.6 L (12.0-16.0) g/dl Hct 25.0 L (37-47) % MCV 86.2 (80-98) fL MCH 26.2 L (27.0-33.0) pg MCHC 30.4 L (31.0-35.0) g/dl RDW 14.5 (11.0-16.0) % Plt Count 229 (160-400) X10*3/uL MPV 10.1 (9.4-12.3) fL Immature Gran % (Auto) 0.3 (0.0-0.4) % Neut % (Auto) 65.0 (45-73) % Lymph % (Auto) 22.1 (20-40) % [place] % (Auto) 7.9 (2-11) % Eos % (Auto) 4.4 H (0-4) % Baso % (Auto) 0.3 (0-2) % Lymph # (Auto) 2.3 (1.2-4.9) X10*3/uL [place] # (Auto) 0.8 (0.1-1.2) X10*3/uL Eos # (Auto) 0.5 H (0.0-0.4) X10*3/uL Baso # (Auto) 0.0 (0.0-0.2) X10*3/uL Abs Immat Gran (auto) 0.03 (0.00-0.03) X10*3/uL Absolute Neuts (auto) 6.6 (2.0-8.3) X10*3/uL Absolute Nucleated RBC 0.000 (0.0-0.012) X10*3/uL Nucleated RBC % (auto) 0.0 (0.0-0.2) /100WBC Sodium 141 (135-145) mmol/L Potassium 4.8 (3.3-5.1) mmol/L Chloride 109 H (96-108) mmol/L Carbon Dioxide 24 (22-29) mmol/L Anion Gap 13 (12-20) BUN 37 H (9-16) mg/dL Creatinine 2.28 H (0.5-1.4) mg/dL Estim Creat Clear Calc 20.6 Estimated GFR 21 POC Glucose (60-115) mg/dL Random Glucose 59 L* (60-115) mg/dL Calcium 8.3 L (8.4-10.2) mg/dL Troponin I High Sens 27.8 H* (<3.5-17.0) ng/L B-Natriuretic Peptide 1091 H (<100) pg/mL COVID-19 (LUCIUS) (Negative) COVID-19 Clin Com 06/20/21 06/20/21 Range/Units 22:01 22:54 WBC (4.8-10.8) X10*3/uL RBC (4.20-5.50) X10*6/uL Hgb (12.0-16.0) g/dl Hct (37-47) % MCV (80-98) fL MCH (27.0-33.0) pg MCHC (31.0-35.0) g/dl RDW (11.0-16.0) % Plt Count (160-400) X10*3/uL MPV (9.4-12.3) fL Immature Gran % (Auto) (0.0-0.4) % Neut % (Auto) (45-73) % Lymph % (Auto) (20-40) % [place] % (Auto) (2-11) % Eos % (Auto) (0-4) % Baso % (Auto) (0-2) % Lymph # (Auto) (1.2-4.9) X10*3/uL [place] # (Auto) (0.1-1.2) X10*3/uL Eos # (Auto) (0.0-0.4) X10*3/uL Baso # (Auto) (0.0-0.2) X10*3/uL Abs Immat Gran (auto) (0.00-0.03) X10*3/uL Absolute Neuts (auto) (2.0-8.3) X10*3/uL Absolute Nucleated RBC (0.0-0.012) X10*3/uL Nucleated RBC % (auto) (0.0-0.2) /100WBC Sodium (135-145) mmol/L Potassium (3.3-5.1) mmol/L Chloride (96-108) mmol/L Carbon Dioxide (22-29) mmol/L Anion Gap (12-20) BUN (9-16) mg/dL Creatinine (0.5-1.4) mg/dL Estim Creat Clear Calc Estimated GFR POC Glucose 69 (60-115) mg/dL Random Glucose (60-115) mg/dL Calcium (8.4-10.2) mg/dL Troponin I High Sens (<3.5-17.0) ng/L B-Natriuretic Peptide (<100) pg/mL COVID-19 (LUCIUS) Negative (Negative) COVID-19 Clin Com See Note Imaging Data Chest x-ray: Radiologist's impression: Cardiomegaly with mild pulmonary vascular congestion. ? ECG Data Attestation: I personally reviewed and interpreted this ECG as follows: Interpretation: Normal sinus rhythm at 62 beats per minutes, prolongation of QRS otherwise normal intervals, diffuse T-wave inversion in V4 to V6 which is unchanged from old EKG. Discharge Plan Discharge Clinical Impression: CKD (chronic kidney disease) stage 3, GFR 30-59 ml/min, Congestive heart failure Patient Disposition: Admitted As Inpatient
--- NOTE | 2021-06-20 22:57 | PC.NURSE ---
POC 69 mg/dl. Pt provided with more juice/crackers. Plan to reassess POC shortly.
[2021-06-20 22:58] LABS: Glucose, Whole Blood 69 mg/dL (60-115)
--- NOTE | 2021-06-20 23:03 | PC.NURSE ---
Hospitalist at bedside for eval. Plan for admission, silva and medication administration.
[2021-06-20 23:14] VITALS: BP 117/56; PULSE 66; RESP 24; O2SAT 100
[2021-06-20] MEDS: Furosemide 40 MG/4 ML VIAL IVPUSH (23:16)
[2021-06-20] MEDS: Nitroglycerin 2 % Oint 1 GM Packet 0.5 INCH TRANSDERMA (23:17)
--- NOTE | 2021-06-20 23:26 | PM.IMHP ---
History of Present Illness Date of Service: 06/20/21 Chief Complaint: Shortness of breath 66-year-old female with a past medical history of hypertension, hyperlipidemia, diabetes, gastroparesis, history of left AKA, CVA, CKD, GERD, cardiomyopathy, recent admission to the hospital for GIL on CKD; presented to the hospital today with a chief complaint of shortness of breath. Patient reported that over the past 3 days she has been having shortness of breath which has been gradually worsening; denies any cough or sputum production. Reports that she has been complaint with home medications. Denies any fevers and chills. Denies any GI or symptoms. Patient denies any chest pain palpitations lightheadedness or dizziness. Patient reports she has wheelchair; also does not lie flat on her bed in general. Reports he has been having swelling in her right lower extremity [facility] Medical History Anemia Blister of finger without infection Cholecystectomy planned CKD (chronic kidney disease) Congestive heart failure Diabetes Diabetes mellitus Essential hypertension GERD (gastroesophageal reflux disease) Hernia HLD (hyperlipidemia) HTN (hypertension) Nonischemic cardiomyopathy Other and unspecified hyperlipidemia Type 2 diabetes mellitus with unspecified complications Family History Father Lung cancer Mother Diabetes HTN (hypertension) Heart disease Sister Diabetes Heart disease Brother Heart disease Son Diabetes Daughter Diabetes Pertinent family history: as above Surgical History H/O: hysterectomy History of esophagogastroduodenoscopy (EGD) Hx of colonoscopy Hx of eye surgery Social History Household Members: Children Household Members Other:: Daughter Housing: House Do you presently have visiting nurse or other home services: No Unable to assess alcohol history related to: Unknown Alcohol intake: never Patient Tobacco Use Status: Never used Tobacco service: No Current occupational status: disabled Meds Allergies Allergy/AdvReac Type Severity Reaction Status Date / Time latex [LATEX] Allergy Intermediate ITCHY Verified 02/25/21 09:16 Active Medications: Current Medications Acetaminophen (Acetaminophen 325 Mg Tablet) 650 mg PO Q6H PRN PRN Reason: Pain, Mild (Pain Scale 1-3) Enoxaparin Sodium (Enoxaparin Sodium 40 Mg/0.4 Ml Syringe) 40 mg SUBCUT Q24H MATTY Furosemide (Furosemide 40 Mg/4 Ml Vial) 40 mg IVPUSH DAILY MATTY; Protocol Melatonin (Melatonin 3 Mg Tablet) 6 mg PO BEDTIME PRN PRN Reason: Insomnia Nitroglycerin (Nitroglycerin 0.4 Mg Tab.Subl) 0.4 mg SUBLINGUAL Q5M PRN PRN Reason: Chest Pain Senna (Sennosides 8.6 Mg Tablet) 17.2 mg PO BEDTIME PRN PRN Reason: Constipation Sodium Chloride (0.9 % Sodium Chloride Flush 3 Ml Syringe) 3 ml IVFLUSH QSHIFT [facility] Home Medications Medication Instructions Recorded Confirmed Last Taken Type amlodipine 2.5 mg tablet 2.5 mg PO QAM 06/20/21 06/20/21 Unknown History aspirin 81 mg tablet,delayed 81 mg PO QPM 06/20/21 06/20/21 Unknown History release atorvastatin 80 mg tablet 80 mg PO QPM 06/20/21 06/20/21 Unknown History calcium carbonate 600 mg (1,500 600 tab PO BID 06/20/21 06/20/21 Unknown History mg)-vitamin D3 400 unit tablet clopidogrel 75 mg tablet 75 mg PO QAM 06/20/21 06/20/21 Unknown History gabapentin 100 mg capsule 100 mg PO BID 06/20/21 06/21/21 Unknown History insulin aspart U-100 100 unit/mL 8 - 24 unit SUBCUT TID 06/20/21 06/20/21 Unknown History (3 mL) subcutaneous pen (Novolog Flexpen U-100 Insulin aspart) insulin glargine 100 unit/mL (3 64 unit SUBCUT DAILY 06/20/21 06/20/21 Unknown History mL) subcutaneous pen (Lantus Solostar U-100 Insulin) magnesium oxide 400 mg (241.3 mg 400 mg PO BID 06/20/21 06/20/21 Unknown History magnesium) tablet sertraline 50 mg tablet 50 mg PO DAILY 06/20/21 06/20/21 Unknown History sodium bicarbonate 650 mg tablet 650 mg PO QID 06/20/21 06/20/21 Unknown History trazodone 50 mg tablet 50 mg PO BEDTIME 06/20/21 06/20/21 Unknown History Physical Exam Vital Signs and Narrative: Vital Signs: Last Vital Signs Temp 98.9 F 06/20/21 22:03 Pulse 66 06/20/21 23:14 Resp 24 H 06/20/21 23:14 BP 117/56 L 06/20/21 23:14 Pulse Ox 100 06/20/21 23:14 Body Mass Index 35.5 Gen: Appears be in no acute distress; on supplemental oxygen at 2 L; breathing comfortably. Saturating 90% on room air. 97% at 2 L of oxygen. HEENT: NCAT, Moist mucosa. Pulmonary: Crackles present bilaterally, fair air entry CVS: Normal S1-S2 Abdomen: BS+, Soft, Nontender Extremities: Warm well perfused; left lower extremity above-knee amputation; right lower extremity 2+ pitting edema Neuro: Alert and awake. Results Labs CBC and Chem 7: 06/24/21 05:40 06/24/21 09:09 Labs: Laboratory Results - last 24 hr 06/20/21 06/20/21 06/20/21 22:01 22:01 22:01 MCV 86.2 MCH 26.2 L MCHC 30.4 L RDW 14.5 Plt Count 229 MPV 10.1 Immature Gran % (Auto) 0.3 Neut % (Auto) 65.0 Lymph % (Auto) 22.1 [place] % (Auto) 7.9 Eos % (Auto) 4.4 H Baso % (Auto) 0.3 Lymph # (Auto) 2.3 [place] # (Auto) 0.8 Eos # (Auto) 0.5 H Baso # (Auto) 0.0 Abs Immat Gran (auto) 0.03 Absolute Neuts (auto) 6.6 Absolute Nucleated RBC 0.000 Nucleated RBC % (auto) 0.0 Anion Gap 13 Estim Creat Clear Calc 20.6 Estimated GFR 21 POC Glucose Random Glucose 59 L* Calcium 8.3 L Troponin I High Sens 27.8 H* B-Natriuretic Peptide 1091 H COVID-19 (LUCIUS) COVID-19 Clin Com 06/20/21 06/20/21 22:01 22:54 MCV MCH MCHC RDW Plt Count MPV Immature Gran % (Auto) Neut % (Auto) Lymph % (Auto) [place] % (Auto) Eos % (Auto) Baso % (Auto) Lymph # (Auto) [place] # (Auto) Eos # (Auto) Baso # (Auto) Abs Immat Gran (auto) Absolute Neuts (auto) Absolute Nucleated RBC Nucleated RBC % (auto) Anion Gap Estim Creat Clear Calc Estimated GFR POC Glucose 69 Random Glucose Calcium Troponin I High Sens B-Natriuretic Peptide COVID-19 (LUCIUS) Negative COVID-19 Clin Com See Note Imaging Radiologist's Impressions: Impressions Chest X-Ray 06/20/21 21:45 IMPRESSION: Cardiomegaly with mild pulmonary vascular congestion. Assessment and Plan (1) Congestive heart failure: Status: Acute (2) CKD (chronic kidney disease) stage 3, GFR 30-59 ml/min: Status: Acute (3) Type 2 diabetes mellitus with unspecified complications: Status: Acute 66-year-old female with a past medical history of hypertension, hyperlipidemia, diabetes, gastroparesis, history of left AKA, CVA, CKD, GERD, cardiomyopathy, recent admission to the hospital for GIL on CKD; presented to the hospital today with a chief complaint of shortness of breath. Acute diastolic CHF exacerbation: Echocardiogram on 06/05/2021 showed normal LV systolic function and grade 2 diastolic dysfunction. Mild aortic stenosis. Severely elevated right ventricular systolic pressure. Continue IV Lasix 40 mg. Monitor renal function. Cardiology consult. Daily weights and I's and O's Telemetry Patient was in her med troponins-denies any chest pain; likely in the setting of demand/reduced clearance from renal insufficiency. Shortness of breath/dyspnea on exertion: Patient hypoxic to 89% on room air. Likely in setting of CHF. Also pulmonary embolism in the differential. Patient's echocardiogram from 06/05/2021 showed severely elevated right ventricular systolic pressure. D-dimer pending Cannot do CT angio chest given renal insufficiency. Will obtain a V/Q scan. Will treat with empiric Lovenox until then Vital stable Diabetes: Insulin sliding scale. Monitor fingerstick glucose. Will hold Lantus for now given initial hypoglycemia on presentation. History of CKD: Creatinine at baseline. Monitor renal function while diuresing. DVT prophylaxis: Patient on Lovenox Code status: Full code a Quality Stroke Does the patient have a stroke diagnosis?: No VTE Prior VTE?: No VTE Risk Level:: Medical - moderate - high VTE Device Contraindication: Treatment Not Indicated VTE Drug Contraindication: N/A - Med Ordered
[2021-06-20 23:27] VITALS: BP 132/54; PULSE 65; RESP 24; O2SAT 100
--- NOTE | 2021-06-20 23:37 | PC.NURSE ---
DDimer obtained. Bray inserted, 16 F with sterile technique. Pt medicated per NOV. VSS. Awaiting bed assignment.
[2021-06-20 23:43] LABS: D Dimer 587 NG/ML
[2021-06-21] VITALS (9 sets, daily range): BP systolic 90–151; BP diastolic 62–84; PULSE 55–71; RESP 18–22; TEMP 36.2–36.6; O2SAT 94–97; BMI 41.8
--- NOTE | 2021-06-21 00:06 | PC.NURSE ---
This RN calling [facility] to give report, [facility] to call back when able.
[2021-06-21 00:42] LABS: Magnesium 1.9 mg/dL (1.6-2.6)
--- NOTE | 2021-06-21 00:43 | PC.NURSE ---
Report given to [facility] RN. Plan for transport to floor.
[2021-06-21] MEDS: Enoxaparin Sodium 120 MG/0.8 ML SYRINGE SUBCUT (01:55)
[2021-06-21 06:36] LABS: MANUAL DIFF FLAG NO
[2021-06-21 06:47] LABS: Basophils Percent Auto 0.3 % (0-2); Eosinophils Absolute Auto 0.6 X10*3/uL (0.0-0.4); Hematocrit 25.9 % (37-47); Hemoglobin 7.8 g/dl (12.0-16.0); Imm Gran Abs Auto 0.04 X10*3/uL (0.00-0.03); Imm Gran Pct Auto 0.4 % (0.0-0.4); Lymphocytes Absolute Auto 2.5 X10*3/uL (1.2-4.9); Lymphocytes Percent Auto 22.7 % (20-40); Mean Corpuscular HGB Conc 30.1 g/dl (31.0-35.0); Mean Corpuscular Hemoglobin 25.8 pg (27.0-33.0); Mean Corpuscular Volume 85.8 fL (80-98); Mean Platelet Volume 10.8 fL (9.4-12.3); Neutrophils Percent Auto 62.6 % (45-73); Platelet Count 274 X10*3/uL (160-400); Red Blood Count 3.02 X10*6/uL (4.20-5.50); Red Cell Distribution Width 14.6 % (11.0-16.0); White Blood Count 11.1 X10*3/uL (4.8-10.8)
[2021-06-21 07:27] LABS: Anion Gap 12 (12-20); Blood Urea Nitrogen 38 mg/dL (9-16); Calcium 8.3 mg/dL (8.4-10.2); Carbon Dioxide 24 mmol/L (22-29); Chloride 109 mmol/L (96-108); Creatinine Clr Calc Pharmacy 22.1; Estimated Glomerular Filt Rate 21; Glucose Random 44 mg/dL (60-115); Potassium 5.1 mmol/L (3.3-5.1); Sodium 140 mmol/L (135-145); Troponin-I High Sensitivity 28.8 ng/L (<3.5-17.0)
[2021-06-21 07:36] LABS: Glucose, Whole Blood 55 mg/dL (60-115)
[2021-06-21 07:36] LABS: Glucose, Whole Blood 40 mg/dL (60-115)
[2021-06-21 08:23] LABS: Glucose, Whole Blood 110 mg/dL (60-115)
--- NOTE | 2021-06-21 09:05 | P.HPHOSP_ITS ---
FORMERLY [facility] Medical History Anemia Blister of finger without infection Cholecystectomy planned CKD (chronic kidney disease) Congestive heart failure Diabetes Diabetes mellitus Essential hypertension GERD (gastroesophageal reflux disease) Hernia HLD (hyperlipidemia) HTN (hypertension) Nonischemic cardiomyopathy Other and unspecified hyperlipidemia Type 2 diabetes mellitus with unspecified complications Family History Father Lung cancer Mother Diabetes HTN (hypertension) Heart disease Sister Diabetes Heart disease Brother Heart disease Son Diabetes Daughter Diabetes Surgical History H/O: hysterectomy History of esophagogastroduodenoscopy (EGD) Hx of colonoscopy Hx of eye surgery Social History Household Members: Children Household Members Other:: Daughter Housing: House Do you presently have visiting nurse or other home services: No Unable to assess alcohol history related to: Unknown Alcohol intake: never Patient Tobacco Use Status: Never used Tobacco Use of substances other than those prescribed or required for medical reasons: Unknown Have you been hit, kicked, punched, or otherwise hurt by someone within the past year? If so, by whom?: No Do you feel safe in your current relationship?: No Current Relationship Is there a partner from a previous relationship who is making you feel unsafe now?: No Are you made to feel afraid or neglected: No Advance Directives: No Advance Directives Information Provided: No Do you have thoughts of harming others: None Do you have a plan to hurt others: No Plan Recently lost weight without trying: Unsure Eating poorly because of decreased appetite: No Patient : No (NO) : No Poor oral hygiene: No service: No Current occupational status: disabled Meds Allergies Allergy/AdvReac Type Severity Reaction Status Date / Time latex [LATEX] Allergy Intermediate ITCHY Verified 02/25/21 09:16 Active Medications: Current Medications Acetaminophen (Acetaminophen 325 Mg Tablet) 650 mg PO Q6H PRN PRN Reason: Pain, Mild (Pain Scale 1-3) Amlodipine Besylate (Amlodipine Besylate 2.5 Mg Tablet) 2.5 mg PO DAILY MATTY; Protocol Aspirin (Aspirin Enteric Coated 81 Mg Tablet.Dr) 81 mg PO DAILY@1700 [facility] Atorvastatin Calcium (Atorvastatin Calcium 80 Mg Tablet) 80 mg PO DAILY@1700 [facility] Clopidogrel Bisulfate (Clopidogrel Bisulfate 75 Mg Tablet) 75 mg PO DAILY [facility] Furosemide (Furosemide 40 Mg/4 Ml Vial) 40 mg IVPUSH DAILY [facility]; Protocol Gabapentin (Gabapentin 400 Mg Capsule) 10,000 mg PO BID [facility] Hydralazine HCl (Hydralazine Hcl 10 Mg Tablet) 10 mg PO BID [facility]; Protocol Melatonin (Melatonin 3 Mg Tablet) 6 mg PO BEDTIME PRN PRN Reason: Insomnia Nitroglycerin (Nitroglycerin 0.4 Mg Tab.Subl) 0.4 mg SUBLINGUAL Q5M PRN PRN Reason: Chest Pain Senna (Sennosides 8.6 Mg Tablet) 17.2 mg PO BEDTIME PRN PRN Reason: Constipation Sertraline HCl (Sertraline Hcl 50 Mg Tablet) 50 mg PO DAILY [facility] Sodium Bicarbonate (Sodium Bicarbonate 650 Mg Tablet) 650 mg PO QID [facility] Sodium Chloride (0.9 % Sodium Chloride Flush 3 Ml Syringe) 3 ml IVFLUSH QSHIFT [facility] Last Admin: 06/21/21 00:34 Dose: Not Given Documented by: Trazodone HCl (Trazodone Hcl 50 Mg Tablet) 50 mg PO BEDTIME [facility] Home Medications Medication Instructions Recorded Confirmed Last Taken Type amlodipine 2.5 mg tablet 2.5 mg PO QAM 06/20/21 06/20/21 Unknown History aspirin 81 mg tablet,delayed 81 mg PO QPM 06/20/21 06/20/21 Unknown History release atorvastatin 80 mg tablet 80 mg PO QPM 06/20/21 06/20/21 Unknown History calcium carbonate 600 mg (1,500 600 tab PO BID 06/20/21 06/20/21 Unknown History mg)-vitamin D3 400 unit tablet clopidogrel 75 mg tablet 75 mg PO QAM 06/20/21 06/20/21 Unknown History furosemide 20 mg tablet 0.5 tab PO Q OTHER DAY 06/20/21 06/20/21 Unknown History gabapentin 100 mg capsule 100 cap PO BID 06/20/21 06/20/21 Unknown History hydralazine 10 mg tablet 10 mg PO BID 06/20/21 06/20/21 Unknown History insulin aspart U-100 100 unit/mL 8 - 24 unit SUBCUT TID 06/20/21 06/20/21 Unknown History (3 mL) subcutaneous pen (Novolog Flexpen U-100 Insulin aspart) insulin glargine 100 unit/mL (3 64 unit SUBCUT DAILY 06/20/21 06/20/21 Unknown History mL) subcutaneous pen (Lantus Solostar U-100 Insulin) magnesium oxide 400 mg (241.3 mg 400 mg PO BID 06/20/21 06/20/21 Unknown History magnesium) tablet sertraline 50 mg tablet 50 mg PO DAILY 06/20/21 06/20/21 Unknown History sodium bicarbonate 650 mg tablet 650 mg PO QID 06/20/21 06/20/21 Unknown History trazodone 50 mg tablet 50 mg PO BEDTIME 06/20/21 06/20/21 Unknown History Physical Exam Vital Signs and Narrative: Vital Signs: Last Vital Signs Temp 98 F 06/21/21 07:14 Pulse 60 06/21/21 07:14 Resp 22 H 06/21/21 07:14 BP 151/65 H 06/21/21 00:00 Pulse Ox 96 06/21/21 07:14 Body Mass Index 41.8 Results Labs CBC and Chem 7: 06/21/21 05:53 06/21/21 05:53 Labs: Laboratory Results - last 24 hr 06/20/21 06/20/21 06/20/21 22:01 22:01 22:01 MCV 86.2 MCH 26.2 L MCHC 30.4 L RDW 14.5 Plt Count 229 MPV 10.1 Immature Gran % (Auto) 0.3 Neut % (Auto) 65.0 Lymph % (Auto) 22.1 [place]t % (Auto) 7.9 Eos % (Auto) 4.4 H Baso % (Auto) 0.3 Lymph # (Auto) 2.3 [place]t # (Auto) 0.8 Eos # (Auto) 0.5 H Baso # (Auto) 0.0 Abs Immat Gran (auto) 0.03 Absolute Neuts (auto) 6.6 Absolute Nucleated RBC 0.000 Nucleated RBC % (auto) 0.0 D-Dimer Anion Gap 13 Estim Creat Clear Calc 20.6 Estimated GFR 21 POC Glucose Random Glucose 59 L* Calcium 8.3 L Magnesium 1.9 Troponin I High Sens 27.8 H* B-Natriuretic Peptide 1091 H COVID-19 ([facility]) COVID-19 Clin Com 06/20/21 06/20/21 06/20/21 22:01 22:54 23:24 MCV MCH MCHC RDW Plt Count MPV Immature Gran % (Auto) Neut % (Auto) Lymph % (Auto) [place] % (Auto) Eos % (Auto) Baso % (Auto) Lymph # (Auto) [place]t # (Auto) Eos # (Auto) Baso # (Auto) Abs Immat Gran (auto) Absolute Neuts (auto) Absolute Nucleated RBC Nucleated RBC % (auto) D-Dimer 587 Anion Gap Estim Creat Clear Calc Estimated GFR POC Glucose 69 Random Glucose Calcium Magnesium Troponin I High Sens B-Natriuretic Peptide COVID-19 ([facility]) Negative COVID-19 [email or web address] Com See Note 06/21/21 06/21/21 06/21/21 05:53 05:53 05:53 MCV 85.8 MCH 25.8 L MCHC 30.1 L RDW 14.6 Plt Count 274 MPV 10.8 Immature Gran % (Auto) 0.4 Neut % (Auto) 62.6 Lymph % (Auto) 22.7 [place]t % (Auto) 9.0 Eos % (Auto) 5.0 H Baso % (Auto) 0.3 Lymph # (Auto) 2.5 K[place]t # (Auto) 1.0 Eos # (Auto) 0.6 H Baso # (Auto) 0.0 Abs Immat Gran (auto) 0.04 H Absolute Neuts (auto) 7.0 Absolute Nucleated RBC 0.000 Nucleated RBC % (auto) 0.0 D-Dimer Anion Gap 12 Estim Creat Clear Calc 22.1 Estimated GFR 21 POC Glucose Random Glucose 44 L* Calcium 8.3 L Magnesium Troponin I High Sens 28.8 H* B-Natriuretic Peptide COVID-19 ([facility]CIUS) COVID-[employer] 06/21/21 06/21/21 06/21/21 07:13 07:32 08:19 MCV MCH MCHC RDW Plt Count MPV Immature Gran % (Auto) Neut % (Auto) Lymph % (Auto) K[place]t % (Auto) Eos % (Auto) Baso % (Auto) Lymph # (Auto) K[place]t # (Auto) Eos # (Auto) Baso # (Auto) Abs Immat Gran (auto) Absolute Neuts (auto) Absolute Nucleated RBC Nucleated RBC % (auto) D-Dimer Anion Gap Estim Creat Clear Calc Estimated GFR POC Glucose 40 L* 55 L* 110 Random Glucose Calcium Magnesium Troponin I High Sens B-Natriuretic Peptide COVID-19 ([facility]) COVID-19 Clin Com Imaging Radiologist's Impressions: Impressions Chest X-Ray 06/20/21 21:45 IMPRESSION: Cardiomegaly with mild pulmonary vascular congestion. Quality Stroke Does the patient have a stroke diagnosis?: No VTE Prior VTE?: No VTE Risk Level:: Medical - moderate - high VTE Device Contraindication: Treatment Not Indicated VTE Drug Contraindication: N/A - Med Ordered
--- NOTE | 2021-06-21 10:53 | P.PNIM_ITS ---
Subjective Subjective Date of Service: 06/21/21 Interval History: No acute issues overnight. Patient slept well intermittently per her account. States her breathing is better since admission Review of Systems Denies chest pain/shortness of breath Denies abdominal pain Physical Exam Vital Signs: Vital Signs: Last Vital Signs Temp 98 F 06/21/21 07:14 Pulse 60 06/21/21 07:14 Resp 22 H 06/21/21 07:14 BP 90/62 06/21/21 09:55 Pulse Ox 96 06/21/21 07:14 Body Mass Index 41.8 Const: General: no acute distress Resp: Other: Diminished at bases with fine crackles to inferior scapular border bilaterally Cardio: Rate: regular rate Rhythm: regular rhythm Heart sounds: S1 normal heart sound present and S2 normal heart sound present GI: Other: Protuberant but soft. 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 Objective Data Active Medications Acetaminophen (Acetaminophen 325 Mg Tablet) 650 mg PO Q6H PRN PRN Reason: Pain, Mild (Pain Scale 1-3) Amlodipine Besylate (Amlodipine Besylate 2.5 Mg Tablet) 2.5 mg PO DAILY [facility]ATTY; Protocol Aspirin (Aspirin Enteric Coated 81 Mg Tablet.Dr) 81 mg PO DAILY@1700 [facility] Atorvastatin Calcium (Atorvastatin Calcium 80 Mg Tablet) 80 mg PO DAILY@1700 [facility] Clopidogrel Bisulfate (Clopidogrel Bisulfate 75 Mg Tablet) 75 mg PO DAILY [facility] Furosemide (Furosemide 40 Mg/4 Ml Vial) 40 mg IVPUSH DAILY [facility]; Protocol Gabapentin (Gabapentin 100 Mg Capsule) 100 mg PO BID [facility] Hydralazine HCl (Hydralazine Hcl 10 Mg Tablet) 10 mg PO BID [facility]; Protocol Melatonin (Melatonin 3 Mg Tablet) 6 mg PO BEDTIME PRN PRN Reason: Insomnia Nitroglycerin (Nitroglycerin 0.4 Mg Tab.Subl) 0.4 mg SUBLINGUAL Q5M PRN PRN Reason: Chest Pain Senna (Sennosides 8.6 Mg Tablet) 17.2 mg PO BEDTIME PRN PRN Reason: Constipation Sertraline HCl (Sertraline Hcl 50 Mg Tablet) 50 mg PO DAILY [facility] Sodium Bicarbonate (Sodium Bicarbonate 650 Mg Tablet) 650 mg PO QID [facility] Sodium Chloride (0.9 % Sodium Chloride Flush 3 Ml Syringe) 3 ml IVFLUSH QSHIFT [facility]ATTY Last Admin: 06/21/21 00:34 Dose: Not Given Documented by: ALBINO Non-Admin Reason: Med Not Available Trazodone HCl (Trazodone Hcl 50 Mg Tablet) 50 mg PO BEDTIME [facility] Labs CBC & Chem 7: 06/21/21 05:53 06/21/21 05:53 Labs: Laboratory Results - last 24 hr 06/20/21 06/20/21 06/20/21 22:01 22:01 22:01 MCV 86.2 MCH 26.2 L MCHC 30.4 L RDW 14.5 Plt Count 229 MPV 10.1 Immature Gran % (Auto) 0.3 Neut % (Auto) 65.0 Lymph % (Auto) 22.1 Dickens % (Auto) 7.9 Eos % (Auto) 4.4 H Baso % (Auto) 0.3 Lymph # (Auto) 2.3 Dickens # (Auto) 0.8 Eos # (Auto) 0.5 H Baso # (Auto) 0.0 Abs Immat Gran (auto) 0.03 Absolute Neuts (auto) 6.6 Absolute Nucleated RBC 0.000 Nucleated RBC % (auto) 0.0 D-Dimer Anion Gap 13 Estim Creat Clear Calc 20.6 Estimated GFR 21 POC Glucose Random Glucose 59 L* Calcium 8.3 L Magnesium 1.9 Troponin I High Sens 27.8 H* B-Natriuretic Peptide 1091 H COVID-19 ([facility]) COVID-19 Clin Com 06/20/21 06/20/21 06/20/21 22:01 22:54 23:24 MCV MCH MCHC RDW Plt Count MPV Immature Gran % (Auto) Neut % (Auto) Lymph % (Auto) Dickens % (Auto) Eos % (Auto) Baso % (Auto) Lymph # (Auto) Dickens # (Auto) Eos # (Auto) Baso # (Auto) Abs Immat Gran (auto) Absolute Neuts (auto) Absolute Nucleated RBC Nucleated RBC % (auto) D-Dimer 587 Anion Gap Estim Creat Clear Calc Estimated GFR POC Glucose 69 Random Glucose Calcium Magnesium Troponin I High Sens B-Natriuretic Peptide COVID-19 ([facility]) Negative COVID-19 Clin Com See Note 06/21/21 06/21/21 06/21/21 05:53 05:53 05:53 MCV 85.8 MCH 25.8 L MCHC 30.1 L RDW 14.6 Plt Count 274 MPV 10.8 Immature Gran % (Auto) 0.4 Neut % (Auto) 62.6 Lymph % (Auto) 22.7 Dickens % (Auto) 9.0 Eos % (Auto) 5.0 H Baso % (Auto) 0.3 Lymph # (Auto) 2.5 Dickens # (Auto) 1.0 Eos # (Auto) 0.6 H Baso # (Auto) 0.0 Abs Immat Gran (auto) 0.04 H Absolute Neuts (auto) 7.0 Absolute Nucleated RBC 0.000 Nucleated RBC % (auto) 0.0 D-Dimer Anion Gap 12 Estim Creat Clear Calc 22.1 Estimated GFR 21 POC Glucose Random Glucose 44 L* Calcium 8.3 L Magnesium Troponin I High Sens 28.8 H* B-Natriuretic Peptide COVID-19 ([facility]CIUS) COVID-19 Clin Com 06/21/21 06/21/21 06/21/21 07:13 07:32 08:19 MCV MCH MCHC RDW Plt Count MPV Immature Gran % (Auto) Neut % (Auto) Lymph % (Auto) Dickens % (Auto) Eos % (Auto) Baso % (Auto) Lymph # (Auto) Dickens # (Auto) Eos # (Auto) Baso # (Auto) Abs Immat Gran (auto) Absolute Neuts (auto) Absolute Nucleated RBC Nucleated RBC % (auto) D-Dimer Anion Gap Estim Creat Clear Calc Estimated GFR POC Glucose 40 L* 55 L* 110 Random Glucose Calcium Magnesium Troponin I High Sens B-Natriuretic Peptide COVID-19 ([facility]) COVID-19 Clin Com Assessment and Plan (1) Congestive heart failure: Status: Acute Assessment and Plan: Improved since admission. Lasix held this morning secondary to blood pressure. Nitropaste removed. Will need continued IV diuresis as dictated by blood pressure. Awaiting Cardiology input (2) CKD (chronic kidney disease) stage 3, GFR 30-59 ml/min: Status: Acute Assessment and Plan: At baseline. Continue current therapies changes based on clinical course of forthcoming data (3) Type 2 diabetes mellitus with unspecified complications: Status: Acute Assessment and Plan: Sugars control on current medicines. Adjustments based on response of therapy (4) Elevated d-dimer: Status: Acute Assessment and Plan: V/Q scan pending this a.m.; anticoagulation based on results from pending scan. Quality Stroke Does the patient have a stroke diagnosis?: No VTE Prior VTE?: No VTE Risk Level:: Medical - moderate - high VTE Device Contraindication: Treatment Not Indicated VTE Drug Contraindication: N/A - Med Ordered
[2021-06-21 12:06] LABS: Glucose, Whole Blood 72 mg/dL (60-115)
[2021-06-21] MEDS: Furosemide 40 MG/4 ML VIAL IVPUSH (12:07)
[2021-06-21] MEDS: Gabapentin 100 MG CAPSULE PO ×2 (12:07→20:44)
[2021-06-21] MEDS: hydrALAZINE HCl 10 MG TABLET PO ×2 (12:07→20:44)
[2021-06-21] MEDS: Sertraline HCL 50 MG TABLET PO (12:08)
[2021-06-21] MEDS: 0.9 % Sodium Chloride Flush 3 ML SYRINGE IVFLUSH ×3 (12:08→20:45)
[2021-06-21] MEDS: Sodium Bicarbonate 650 MG TABLET PO ×3 (12:08→20:44)
[2021-06-21] MEDS: amLODIPine Besylate 2.5 MG TABLET PO (12:08)
[2021-06-21] MEDS: Clopidogrel Bisulfate 75 MG TABLET PO (12:08)
--- NOTE | 2021-06-21 16:41 | PM.CNCAR ---
History of Present Illness History of Present Illness Date of Service: 06/21/21 Requesting physician: Parag Jarquin Consult reason: congestive heart failure Chief complaint: CHF Narrative: I was requested to see Debbie in cardiology consultation today for hypoxic respiratory failure and congestive heart failure. She comes to the hospital with progressive leg swelling and shortness of breath over the last 3 days as per her. She was noted to the in the emergency room to be fluid overloaded as well as elevated BNP and chest x-ray findings consistent with congestive heart failure along with hypoxemia. Today she says since IV diuresis she feels better although requiring oxygen therapy. Unclear cause for her congestive heart failure, not sure if she was receiving her Lasix at home. She was recently admitted to the hospital with acute kidney injury and also acute CVA and at that time her Lasix was held. Not sure if he was restarted and she was getting it as an outpatient. She has prior history of labile blood pressure and difficult to manage blood pressure, nonischemic cardiomyopathy, chronic kidney disease, poor functional status, obesity, diabetes mellitus, recent CVA. Patient denies any chest pain. Noted elevated troponin which are consistent with subendocardial strain from heart failure and elevated creatinine. Review of Systems Constitutional: Constitutional: Reports no additional constitutional complaints Eyes: Eyes: Reports no additional eye complaints ENT: Reports system reviewed and no additional complaints, except as documented Cardiovascular: Cardiovascular: Denies chest pain, Reports leg edema, Denies lightheadedness, Denies Loss of Consciousness, Denies radiating jaw, neck or arm pain, Denies palpitations, Reports dyspnea, Reports orthopnea and Reports paroxysmal nocturnal dyspnea Respiratory: Respiratory: Reports no additional respiratory complaints, Reports excessive phlegm production and Reports dyspnea Gastrointestinal: Gastrointestinal: Reports no additional gastrointestinal complaints Genitourinary: Genitourinary: Reports no additional female genitourinary complaints Musculoskeletal: Musculoskeletal: Reports no additional musculoskeletal complaints Integumentary/Breasts: Skin/Breast: Reports system reviewed and no additional complaints, except as docu Neurologic: Reports system reviewed and no additional complaints, except as documented Psychiatric: Psychiatric: Reports no additional psychiatric complaints Endocrine: Endocrine: Reports no additional endocrine complaints and Denies palpitations PMFSH Past Medical History Medical History Anemia Blister of finger without infection Cholecystectomy planned CKD (chronic kidney disease) Congestive heart failure Diabetes Diabetes mellitus Essential hypertension GERD (gastroesophageal reflux disease) Hernia HLD (hyperlipidemia) HTN (hypertension) Nonischemic cardiomyopathy Other and unspecified hyperlipidemia Type 2 diabetes mellitus with unspecified complications Family History Family History Father Lung cancer Mother Diabetes HTN (hypertension) Heart disease Sister Diabetes Heart disease Brother Heart disease Son Diabetes Daughter Diabetes Surgical History Surgical History H/O: hysterectomy History of esophagogastroduodenoscopy (EGD) Hx of colonoscopy Hx of eye surgery Social History Social History Household Members: Children Household Members Other:: Daughter Housing: House Do you presently have visiting nurse or other home services: No Unable to assess alcohol history related to: Unknown Alcohol intake: never Patient Tobacco Use Status: Never used Tobacco Use of substances other than those prescribed or required for medical reasons: Unknown Currently Displaying Signs/Symptoms of Drug Intoxication Withdrawal: No Have you been hit, kicked, punched, or otherwise hurt by someone within the past year? If so, by whom?: No Do you feel safe in your current relationship?: No Current Relationship Is there a partner from a previous relationship who is making you feel unsafe now?: No Are you made to feel afraid or neglected: No Advance Directives: No Advance Directives Information Provided: No Do you have thoughts of harming others: None Do you have a plan to hurt others: No Plan Recently lost weight without trying: Unsure Eating poorly because of decreased appetite: No Patient : No (NO) : No Poor oral hygiene: No service: No Current occupational status: disabled Meds Allergies Allergy/AdvReac Type Severity Reaction Status Date / Time latex [LATEX] Allergy Intermediate ITCHY Verified 02/25/21 09:16 Active Medications: Current Medications Acetaminophen (Acetaminophen 325 Mg Tablet) 650 mg PO Q6H PRN PRN Reason: Pain, Mild (Pain Scale 1-3) Amlodipine Besylate (Amlodipine Besylate 2.5 Mg Tablet) 2.5 mg PO DAILY MATTY; Protocol Last Admin: 06/21/21 12:08 Dose: 2.5 mg Documented by: Aspirin (Aspirin Enteric Coated 81 Mg Tablet.) 81 mg PO DAILY@1700 [facility] Atorvastatin Calcium (Atorvastatin Calcium 80 Mg Tablet) 80 mg PO DAILY@1700 [facility] Clopidogrel Bisulfate (Clopidogrel Bisulfate 75 Mg Tablet) 75 mg PO DAILY [facility] Last Admin: 06/21/21 12:08 Dose: 75 mg Documented by: Enoxaparin Sodium (Enoxaparin Sodium 30 Mg/0.3 Ml Syringe) 30 mg SUBCUT Q24H [facility] Furosemide (Furosemide 40 Mg/4 Ml Vial) 40 mg IVPUSH DAILY [facility]; Protocol Last Admin: 06/21/21 12:07 Dose: 40 mg Documented by: Gabapentin (Gabapentin 100 Mg Capsule) 100 mg PO BID [facility] Last Admin: 06/21/21 12:07 Dose: 100 mg Documented by: Hydralazine HCl (Hydralazine Hcl 10 Mg Tablet) 10 mg PO BID [facility]; Protocol Last Admin: 06/21/21 12:07 Dose: 10 mg Documented by: Furosemide 200 mg/ Sodium (Chloride) 100 mls @ 2.5 mls/hr IVCONT .Q24H [facility] Melatonin (Melatonin 3 Mg Tablet) 6 mg PO BEDTIME PRN PRN Reason: Insomnia Nitroglycerin (Nitroglycerin 0.4 Mg Tab.Subl) 0.4 mg SUBLINGUAL Q5M PRN PRN Reason: Chest Pain Senna (Sennosides 8.6 Mg Tablet) 17.2 mg PO BEDTIME PRN PRN Reason: Constipation Sertraline HCl (Sertraline Hcl 50 Mg Tablet) 50 mg PO DAILY [facility] Last Admin: 06/21/21 12:08 Dose: 50 mg Documented by: Sodium Bicarbonate (Sodium Bicarbonate 650 Mg Tablet) 650 mg PO QID [facility] Last Admin: 06/21/21 12:08 Dose: 650 mg Documented by: Sodium Chloride (0.9 % Sodium Chloride Flush 3 Ml Syringe) 3 ml IVFLUSH QSHIFT [facility] Last Admin: 06/21/21 12:08 Dose: 3 ml Documented by: Trazodone HCl (Trazodone Hcl 50 Mg Tablet) 50 mg PO BEDTIME [facility] Home Medications Medication Instructions Recorded Confirmed Last Taken Type amlodipine 2.5 mg tablet 2.5 mg PO QAM 06/20/21 06/20/21 Unknown History aspirin 81 mg tablet,delayed 81 mg PO QPM 06/20/21 06/20/21 Unknown History release atorvastatin 80 mg tablet 80 mg PO QPM 06/20/21 06/20/21 Unknown History calcium carbonate 600 mg (1,500 600 tab PO BID 06/20/21 06/20/21 Unknown History mg)-vitamin D3 400 unit tablet clopidogrel 75 mg tablet 75 mg PO QAM 06/20/21 06/20/21 Unknown History furosemide 20 mg tablet 0.5 tab PO Q OTHER DAY 06/20/21 06/20/21 Unknown History gabapentin 100 mg capsule 100 mg PO BID 06/20/21 06/21/21 Unknown History hydralazine 10 mg tablet 10 mg PO BID 06/20/21 06/20/21 Unknown History insulin aspart U-100 100 unit/mL 8 - 24 unit SUBCUT TID 06/20/21 06/20/21 Unknown History (3 mL) subcutaneous pen (Novolog Flexpen U-100 Insulin aspart) insulin glargine 100 unit/mL (3 64 unit SUBCUT DAILY 06/20/21 06/20/21 Unknown History mL) subcutaneous pen (Lantus Solostar U-100 Insulin) magnesium oxide 400 mg (241.3 mg 400 mg PO BID 06/20/21 06/20/21 Unknown History magnesium) tablet sertraline 50 mg tablet 50 mg PO DAILY 06/20/21 06/20/21 Unknown History sodium bicarbonate 650 mg tablet 650 mg PO QID 06/20/21 06/20/21 Unknown History trazodone 50 mg tablet 50 mg PO BEDTIME 06/20/21 06/20/21 Unknown History Physical Exam Vital Signs: Vital Signs: Last Vital Signs Temp 97.8 F 06/21/21 15:28 Pulse 64 06/21/21 15:28 Resp 20 06/21/21 15:28 BP 141/63 H 06/21/21 15:28 Pulse Ox 94 06/21/21 15:28 Body Mass Index 41.8 Const: General: cooperative, comfortable, alert, awake and in distress mild and respiratory Nutritional Appearance: obese Orientation/consciousness: patient oriented x3 HENMT: Head: Yes normocephalic and Yes atraumatic Neck: Neck: Yes trachea midline, Yes supple and Yes other (Difficult to assess JVD) Resp: Effort & Inspection: normal respiratory effort Auscultation: rales bilateral 1/[address] up Cardio: Rate: regular rate Rhythm: regular rhythm Heart sounds: S1 normal heart sound present, S2 normal heart sound present and Murmur heart sound present systolic early and decrescendo GI: Auscultation: normal bowel sounds Skin: General skin exam: no rashes or lesions noted and ecchymosis Neuro: General: patient oriented x3 and no focal motor deficits Extrem: General: Yes edema Results Labs and Meds Result diagrams: 06/21/21 05:53 06/21/21 05:53 Lab results: Laboratory Results - last 24 hr 06/20/21 06/20/21 06/20/21 22:01 22:01 22:01 WBC 10.2 RBC 2.90 L Hgb 7.6 L Hct 25.0 L MCV 86.2 MCH 26.2 L MCHC 30.4 L RDW 14.5 Plt Count 229 MPV 10.1 Immature Gran % (Auto) 0.3 Neut % (Auto) 65.0 Lymph % (Auto) 22.1 [place] % (Auto) 7.9 Eos % (Auto) 4.4 H Baso % (Auto) 0.3 Lymph # (Auto) 2.3 [place] # (Auto) 0.8 Eos # (Auto) 0.5 H Baso # (Auto) 0.0 Abs Immat Gran (auto) 0.03 Absolute Neuts (auto) 6.6 Absolute Nucleated RBC 0.000 Nucleated RBC % (auto) 0.0 D-Dimer Sodium 141 Potassium 4.8 Chloride 109 H Carbon Dioxide 24 Anion Gap 13 BUN 37 H Creatinine 2.28 H Estim Creat Clear Calc 20.6 Estimated GFR 21 POC Glucose Random Glucose 59 L* Calcium 8.3 L Magnesium 1.9 Troponin I High Sens 27.8 H* B-Natriuretic Peptide 1091 H COVID-19 (ULCIUS) COVID-19 Clin Com 06/20/21 06/20/21 06/20/21 22:01 22:54 23:24 WBC RBC Hgb Hct MCV MCH MCHC RDW Plt Count MPV Immature Gran % (Auto) Neut % (Auto) Lymph % (Auto) [place] % (Auto) Eos % (Auto) Baso % (Auto) Lymph # (Auto) [place] # (Auto) Eos # (Auto) Baso # (Auto) Abs Immat Gran (auto) Absolute Neuts (auto) Absolute Nucleated RBC Nucleated RBC % (auto) D-Dimer 587 Sodium Potassium Chloride Carbon Dioxide Anion Gap BUN Creatinine Estim Creat Clear Calc Estimated GFR POC Glucose 69 Random Glucose Calcium Magnesium Troponin I High Sens B-Natriuretic Peptide COVID-19 (LUCIUS) Negative COVID-19 Clin Com See Note 06/21/21 06/21/21 06/21/21 05:53 05:53 05:53 WBC 11.1 H RBC 3.02 L Hgb 7.8 L Hct 25.9 L MCV 85.8 MCH 25.8 L MCHC 30.1 L RDW 14.6 Plt Count 274 MPV 10.8 Immature Gran % (Auto) 0.4 Neut % (Auto) 62.6 Lymph % (Auto) 22.7 [place] % (Auto) 9.0 Eos % (Auto) 5.0 H Baso % (Auto) 0.3 Lymph # (Auto) 2.5 [place] # (Auto) 1.0 Eos # (Auto) 0.6 H Baso # (Auto) 0.0 Abs Immat Gran (auto) 0.04 H Absolute Neuts (auto) 7.0 Absolute Nucleated RBC 0.000 Nucleated RBC % (auto) 0.0 D-Dimer Sodium 140 Potassium 5.1 Chloride 109 H Carbon Dioxide 24 Anion Gap 12 BUN 38 H Creatinine 2.34 H Estim Creat Clear Calc 22.1 Estimated GFR 21 POC Glucose Random Glucose 44 L* Calcium 8.3 L Magnesium Troponin I High Sens 28.8 H* B-Natriuretic Peptide COVID-19 (LUCIUS) COVID-[facility] Live 06/21/21 06/21/21 06/21/21 07:13 07:32 08:19 WBC RBC Hgb Hct MCV MCH MCHC RDW Plt Count MPV Immature Gran % (Auto) Neut % (Auto) Lymph % (Auto) [place] % (Auto) Eos % (Auto) Baso % (Auto) Lymph # (Auto) [place] # (Auto) Eos # (Auto) Baso # (Auto) Abs Immat Gran (auto) Absolute Neuts (auto) Absolute Nucleated RBC Nucleated RBC % (auto) D-Dimer Sodium Potassium Chloride Carbon Dioxide Anion Gap BUN Creatinine Estim Creat Clear Calc Estimated GFR POC Glucose 40 L* 55 L* 110 Random Glucose Calcium Magnesium Troponin I High Sens B-Natriuretic Peptide COVID-19 (LUCIUS) COVID-19 [facility] Com 06/21/21 12:03 WBC RBC Hgb Hct MCV MCH MCHC RDW Plt Count MPV Immature Gran % (Auto) Neut % (Auto) Lymph % (Auto) [place] % (Auto) Eos % (Auto) Baso % (Auto) Lymph # (Auto) [place] # (Auto) Eos # (Auto) Baso # (Auto) Abs Immat Gran (auto) Absolute Neuts (auto) Absolute Nucleated RBC Nucleated RBC % (auto) D-Dimer Sodium Potassium Chloride Carbon Dioxide Anion Gap BUN Creatinine Estim Creat Clear Calc Estimated GFR POC Glucose 72 Random Glucose Calcium Magnesium Troponin I High Sens B-Natriuretic Peptide COVID-19 (LUCIUS) COVID-19 Clin Com Rhythm with ST T wave changes suggestive of repolarization abnormality Imaging Radiologist's impression: Impressions Pulmonary Perfusion Imaging 06/20/21 11:25 IMPRESSION: No evidence of PE. Chest X-Ray 06/20/21 21:45 IMPRESSION: Cardiomegaly with mild pulmonary vascular congestion. Venous Duplex 06/21/21 12:00 IMPRESSION: No DVT demonstrated in the right lower extremity. Assessment and Plan (1) Acute congestive heart failure: Status: Acute Patient presents with acute hypoxic respiratory failure secondary to acute congestive heart failure. She has prior history of diastolic dysfunction, grade 2 with preserved ejection fraction. She clearly still appears to be in heart failure. Switch Lasix 40 mg IV push once to 5 mg an hour drip. Strict intake and output chart needs to be pursued. Unclear as to the reason for decompensation. Could be related to withholding of her diuretic regimen. She is highly labile blood pressure as well as chronic kidney disease as well as difficult to assess fluid status makes it difficult overall management. Consider CardioMEMS placement which will help with avoidance of hospitalizations related to elevated filling pressures. Continue blood pressure management as for now. Blood pressure is adequately controlled on current therapy. Continue monitor BMP and BNP. Strict intake and output chart needs to be pursued. Will follow the patient. Procedures Date of Service Date of Service: 06/21/21
[2021-06-21 17:51] LABS: Glucose, Whole Blood 88 mg/dL (60-115)
[2021-06-21] MEDS: Enoxaparin Sodium 30 MG/0.3 ML SYRINGE SUBCUT (18:10)
[2021-06-21] MEDS: Furosemide 200 MG in 0.9 % Sodium Chloride 80 ML IVCONT (18:10)
[2021-06-21] MEDS: Aspirin Enteric Coated 81 MG TABLET.DR PO (18:11)
[2021-06-21] MEDS: Atorvastatin Calcium 80 MG TABLET PO (18:11)
[2021-06-21] MEDS: traZODone HCL 50 MG TABLET PO (20:44)
[2021-06-21 21:20] LABS: Glucose, Whole Blood 113 mg/dL (60-115)
[2021-06-22] VITALS (11 sets, daily range): BP systolic 113–172; BP diastolic 47–81; PULSE 64–87; RESP 18–20; TEMP 36.1–37.2; O2SAT 90–98; BMI 35.9
[2021-06-22 06:24] LABS: Hematocrit 25.6 % (37-47); Hemoglobin 7.7 g/dl (12.0-16.0); Mean Corpuscular HGB Conc 30.1 g/dl (31.0-35.0); Mean Corpuscular Hemoglobin 25.8 pg (27.0-33.0); Mean Corpuscular Volume 85.9 fL (80-98); Mean Platelet Volume 10.9 fL (9.4-12.3); Platelet Count 236 X10*3/uL (160-400); Red Blood Count 2.98 X10*6/uL (4.20-5.50); Red Cell Distribution Width 14.1 % (11.0-16.0); White Blood Count 8.5 X10*3/uL (4.8-10.8)
[2021-06-22 06:33] LABS: Anion Gap 13 (12-20); Blood Urea Nitrogen 43 mg/dL (9-16); Calcium 8.2 mg/dL (8.4-10.2); Carbon Dioxide 26 mmol/L (22-29); Chloride 107 mmol/L (96-108); Creatinine Clr Calc Pharmacy 18.8; Estimated Glomerular Filt Rate 19; Glucose Fasting 79 mg/dL (60-99); Potassium 5.5 mmol/L (3.3-5.1); Sodium 140 mmol/L (135-145)
[2021-06-22 07:16] LABS: Glucose, Whole Blood 76 mg/dL (60-115)
--- NOTE | 2021-06-22 09:10 | MHC.CM.PN ---
CM met briefly with Patient at bedside and addressed IMM, providing her with the original and placing a copy on the chart. CM also spoke with Daughter/HCP/Adelita at [phone], with the assist of a [place] telephonic [employer]. Adelita appeared quite annoyed with CM for calling and asking questions. Patient lives in an apartment with Adelita and uses a w/c to assist with mobility. Patient receives care coordination through [facility]. Home/resume services is the goal for dc and CM has initiated and will follow for vdc planning. PCP is DR. Gillis.
[2021-06-22] MEDS: 0.9 % Sodium Chloride Flush 3 ML SYRINGE IVFLUSH ×3 (09:19→21:46)
[2021-06-22] MEDS: hydrALAZINE HCl 10 MG TABLET PO (09:19)
[2021-06-22] MEDS: amLODIPine Besylate 2.5 MG TABLET PO (09:20)
[2021-06-22] MEDS: Gabapentin 100 MG CAPSULE PO ×2 (09:20→21:46)
[2021-06-22] MEDS: Clopidogrel Bisulfate 75 MG TABLET PO (09:20)
[2021-06-22] MEDS: Sodium Bicarbonate 650 MG TABLET PO ×4 (09:21→21:46)
[2021-06-22] MEDS: Sertraline HCL 50 MG TABLET PO (09:21)
--- NOTE | 2021-06-22 09:27 | P.PNIM_ITS ---
Subjective Subjective Date of Service: 06/22/21 Interval History: Uneventful night... States she slept well. Breathing much better per patient. Bray draining ?Lasix urine?. Moving bowels q.d. Review of Systems Denies chest pain Denies shortness of breath Physical Exam Vital Signs: Vital Signs: Last Vital Signs Temp 97.8 F 06/22/21 07:00 Pulse 64 06/22/21 09:20 Resp 20 06/22/21 07:00 BP 155/59 H 06/22/21 09:20 Pulse Ox 90 L 06/22/21 09:26 Body Mass Index 35.9 Const: General: no acute distress Resp: Other: Scant bilateral basilar crackles Cardio: Rate: regular rate Rhythm: regular rhythm Heart sounds: S1 normal heart sound present, S2 normal heart sound present and Murmur heart sound present (Soft systolic murmur heard this a.m.) GI: Other: Soft nontender nondistended normoactive bowel sounds Extrem: General: Yes edema (Improved) Objective Data Active Medications Acetaminophen (Acetaminophen 325 Mg Tablet) 650 mg PO Q6H PRN PRN Reason: Pain, Mild (Pain Scale 1-3) Amlodipine Besylate (Amlodipine Besylate 2.5 Mg Tablet) 2.5 mg PO DAILY [facility]; Protocol Last Admin: 06/22/21 09:20 Dose: 2.5 mg Documented by: MAGGIE Aspirin (Aspirin Enteric Coated 81 Mg Tablet.) 81 mg PO DAILY@1700 [facility] Last Admin: 06/21/21 18:11 Dose: 81 mg Documented by: MAGGIE Atorvastatin Calcium (Atorvastatin Calcium 80 Mg Tablet) 80 mg PO DAILY@1700 [facility] Last Admin: 06/21/21 18:11 Dose: 80 mg Documented by: MAGGIE Clopidogrel Bisulfate (Clopidogrel Bisulfate 75 Mg Tablet) 75 mg PO DAILY [facility] Last Admin: 06/22/21 09:20 Dose: 75 mg Documented by: MAGGIE Dextrose (Dextrose 50 % 25 Gm/50 Ml Vial) 25 gm IVPUSH Q15M PRN; Protocol PRN Reason: per Hypoglycemia Standing Ord. Enoxaparin Sodium (Enoxaparin Sodium 30 Mg/0.3 Ml Syringe) 30 mg SUBCUT Q24H [facility] Last Admin: 06/21/21 18:10 Dose: 30 mg Documented by: MAGGIE Furosemide (Furosemide 40 Mg/4 Ml Vial) 40 mg IVPUSH DAILY [facility]; Protocol Last Admin: 06/22/21 09:21 Dose: Not Given Documented by: MAGGIE Non-Admin Reason: Physician Held Med Gabapentin (Gabapentin 100 Mg Capsule) 100 mg PO BID [facility] Last Admin: 06/22/21 09:20 Dose: 100 mg Documented by: MAGGIE Glucose (Glucose Gel 15 Gm Gel..Gram.) 15 gm PO Q15M PRN; Protocol PRN Reason: per Hypoglycemia Standing Ord. Hydralazine HCl (Hydralazine Hcl 10 Mg Tablet) 10 mg PO BID [facility]; Protocol Last Admin: 06/22/21 09:19 Dose: 10 mg Documented by: MAGGIE Furosemide 200 mg/ Sodium (Chloride) 100 mls @ 2.5 mls/hr IVCONT .Q24H [facility] Last Admin: 06/21/21 18:10 Dose: 5 mg/hr, 2.5 mls/hr Documented by: MAGGIE Melatonin (Melatonin 3 Mg Tablet) 6 mg PO BEDTIME PRN PRN Reason: Insomnia Nitroglycerin (Nitroglycerin 0.4 Mg Tab.Subl) 0.4 mg SUBLINGUAL Q5M PRN PRN Reason: Chest Pain Senna (Sennosides 8.6 Mg Tablet) 17.2 mg PO BEDTIME PRN PRN Reason: Constipation Sertraline HCl (Sertraline Hcl 50 Mg Tablet) 50 mg PO DAILY [facility] Last Admin: 06/22/21 09:21 Dose: 50 mg Documented by: MAGGIE Sodium Bicarbonate (Sodium Bicarbonate 650 Mg Tablet) 650 mg PO QID [facility] Last Admin: 06/22/21 09:21 Dose: 650 mg Documented by: MAGGIE Sodium Chloride (0.9 % Sodium Chloride Flush 3 Ml Syringe) 3 ml IVFLUSH QSHIFT [facility] Last Admin: 06/22/21 09:19 Dose: 3 ml Documented by: MAGGIE Trazodone HCl (Trazodone Hcl 50 Mg Tablet) 50 mg PO BEDTIME [facility] Last Admin: 06/21/21 20:44 Dose: 50 mg Documented by: ANTSAMUEL Labs CBC & Chem 7: 06/22/21 05:49 06/22/21 05:49 Labs: Laboratory Results - last 24 hr 06/21/21 06/21/21 06/21/21 12:03 17:48 21:10 MCV MCH MCHC RDW Plt Count MPV Absolute Nucleated RBC Nucleated RBC % (auto) Anion Gap Estim Creat Clear Calc Estimated GFR POC Glucose 72 88 113 Fasting Glucose Calcium 06/22/21 06/22/21 06/22/21 05:49 05:49 07:00 MCV 85.9 MCH 25.8 L MCHC 30.1 L RDW 14.1 Plt Count 236 MPV 10.9 Absolute Nucleated RBC 0.000 Nucleated RBC % (auto) 0.0 Anion Gap 13 Estim Creat Clear Calc 18.8 Estimated GFR 19 POC Glucose 76 Fasting Glucose 79 Calcium 8.2 L Assessment and Plan (1) Acute congestive heart failure: Status: Acute Assessment and Plan: Improved with Lasix drip. Continues same. Will do an oxygen titration and follow response. (2) CKD (chronic kidney disease) stage 3, GFR 30-59 ml/min: Status: Acute Assessment and Plan: At baseline. Continue to follow (3) Type 2 diabetes mellitus with unspecified complications: Status: Acute Assessment and Plan: Normalize. Check point of care t.i.d. a.c. to demonstrate ongoing normalization. Quality Stroke Does the patient have a stroke diagnosis?: No VTE Prior VTE?: No VTE Risk Level:: Medical - moderate - high VTE Device Contraindication: Treatment Not Indicated VTE Drug Contraindication: N/A - Med Ordered
--- NOTE | 2021-06-22 10:29 | PM.PNCARD ---
Subjective Subjective Date of Service: 06/22/21 Principal diagnosis: Decompensated congestive heart failure Interval history: Patient is breathing much better. Off oxygen sitting on the commode not significantly short of breath. Has diuresed about 2 L overnight on Lasix drip. Still oxygen at room air at 90. As per the daughter she gets short of breath at home with minimal exertion. 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 Does have snoring and shortness of breath and wakes up in the night when she is sleeping. Her creatinine is stable. Blood pressure is still borderline elevated Review of Systems Constitutional: Reports no additional constitutional complaints Cardiovascular: Denies chest pain, Denies lightheadedness, Denies palpitations and Reports dyspnea on exertion Respiratory: Reports no additional respiratory complaints and Reports dyspnea on exertion Gastrointestinal: Reports no additional gastrointestinal complaints Skin/Breast: Reports system reviewed and no additional complaints, except as docu Reports system reviewed and no additional complaints, except as documented Endocrine: Reports no additional endocrine complaints and Denies palpitations Physical Exam Vital Signs: Last Vital Signs Temp 97.8 F 06/22/21 07:00 Pulse 64 06/22/21 09:20 Resp 20 06/22/21 07:00 BP 155/59 H 06/22/21 09:20 Pulse Ox 90 L 06/22/21 09:26 Body Mass Index 35.9 Const General: cooperative, comfortable, alert and awake Nutritional Appearance: obese Orientation/consciousness: patient oriented x3 Neck Neck: Yes trachea midline, Yes supple and Yes no JVD Resp Effort & Inspection: normal respiratory effort Auscultation: clear to auscultation bilaterally, no rales and no wheezes Cardio Jugular venous distension: no JVD Palpation: normal PMI Rate: regular rate Rhythm: regular rhythm Heart sounds: S1 normal heart sound present, S2 normal heart sound present and Murmur heart sound present systolic Neuro General: patient oriented x3 Extrem General: Yes no clubbing, cyanosis or edema Psych Appearance: grossly normal Results Labs and Meds Result diagrams: 06/22/21 05:49 06/22/21 05:49 Lab results: Laboratory Results - last 24 hr 06/21/21 06/21/21 06/21/21 12:03 17:48 21:10 WBC RBC Hgb Hct MCV MCH MCHC RDW Plt Count MPV Absolute Nucleated RBC Nucleated RBC % (auto) Sodium Potassium Chloride Carbon Dioxide Anion Gap BUN Creatinine Estim Creat Clear Calc Estimated GFR POC Glucose 72 88 113 Fasting Glucose Calcium 06/22/21 06/22/21 06/22/21 05:49 05:49 07:00 WBC 8.5 RBC 2.98 L Hgb 7.7 L Hct 25.6 L MCV 85.9 MCH 25.8 L MCHC 30.1 L RDW 14.1 Plt Count 236 MPV 10.9 Absolute Nucleated RBC 0.000 Nucleated RBC % (auto) 0.0 Sodium 140 Potassium 5.5 H Chloride 107 Carbon Dioxide 26 Anion Gap 13 BUN 43 H Creatinine 2.52 H Estim Creat Clear Calc 18.8 Estimated GFR 19 POC Glucose 76 Fasting Glucose 79 Calcium 8.2 L Imaging Radiologist's impression: Impressions Pulmonary Perfusion Imaging 06/20/21 11:25 IMPRESSION: No evidence of PE. Venous Duplex 06/21/21 12:00 IMPRESSION: No DVT demonstrated in the right lower extremity. Progress Note: A&P Assessment and plan (1) Acute congestive heart failure: Status: Acute Assessment and Plan: Acute decompensated congestive heart failure of unclear etiology in this elderly woman with multiple risk factors including uncontrolled blood pressure, chronic kidney disease, obesity, possible sleep apnea, significant anemia, poor functional status overall. Her fluid status appears improved with improved symptomatology. Discontinue IV Lasix drip switch to Lasix 40 mg IV push 1. Continue strict intake and output chart. Check BMP and BNP tomorrow. If BNP is good reduce greater than 50% compared to admission BNP switch to oral Lasix tomorrow and plan for discharge. Needs better blood pressure control, increase hydralazine to 25 mg b.i.d.. Closely monitor blood pressure. Will require workup for sleep apnea as outpatient. Also tension needs to be paid for her anemia and consult with Nephrology for treatment for the same, most likely anemia of chronic disease or due to renal insufficiency. Also need for evaluation for home oxygen requirement. Given her body habitus difficult to address her fluid status as well as difficult ambulation as well as advanced kidney disease I think she would be a good candidate for CardioMEMS device to avoid recurrent hospitalization in the future. Discussed with the daughter as well as the patient and they are agreeable. Will set up as outpatient. Will continue to follow with the patient Fall Risk Details Current Medications: Current Medications Acetaminophen (Acetaminophen 325 Mg Tablet) 650 mg PO Q6H PRN PRN Reason: Pain, Mild (Pain Scale 1-3) Amlodipine Besylate (Amlodipine Besylate 2.5 Mg Tablet) 2.5 mg PO DAILY [facility]; Protocol Last Admin: 06/22/21 09:20 Dose: 2.5 mg Documented by: Aspirin (Aspirin Enteric Coated 81 Mg Tablet.) 81 mg PO DAILY@1700 [facility] Last Admin: 06/21/21 18:11 Dose: 81 mg Documented by: Atorvastatin Calcium (Atorvastatin Calcium 80 Mg Tablet) 80 mg PO DAILY@1700 [facility] Last Admin: 06/21/21 18:11 Dose: 80 mg Documented by: Clopidogrel Bisulfate (Clopidogrel Bisulfate 75 Mg Tablet) 75 mg PO DAILY [facility] Last Admin: 06/22/21 09:20 Dose: 75 mg Documented by: Dextrose (Dextrose 50 % 25 Gm/50 Ml Vial) 25 gm IVPUSH Q15M PRN; Protocol PRN Reason: per Hypoglycemia Standing Ord. Enoxaparin Sodium (Enoxaparin Sodium 30 Mg/0.3 Ml Syringe) 30 mg SUBCUT Q24H [facility] Last Admin: 06/21/21 18:10 Dose: 30 mg Documented by: Furosemide (Furosemide 40 Mg/4 Ml Vial) 40 mg IVPUSH DAILY [facility]; Protocol Last Admin: 06/22/21 09:21 Dose: Not Given Documented by: Gabapentin (Gabapentin 100 Mg Capsule) 100 mg PO BID [facility] Last Admin: 06/22/21 09:20 Dose: 100 mg Documented by: Glucose (Glucose Gel 15 Gm Gel..Gram.) 15 gm PO Q15M PRN; Protocol PRN Reason: per Hypoglycemia Standing Ord. Hydralazine HCl (Hydralazine Hcl 10 Mg Tablet) 10 mg PO BID [facility]; Protocol Last Admin: 06/22/21 09:19 Dose: 10 mg Documented by: Furosemide 200 mg/ Sodium (Chloride) 100 mls @ 2.5 mls/hr IVCONT .Q24H [facility] Last Admin: 06/21/21 18:10 Dose: 5 mg/hr, 2.5 mls/hr Documented by: Melatonin (Melatonin 3 Mg Tablet) 6 mg PO BEDTIME PRN PRN Reason: Insomnia Nitroglycerin (Nitroglycerin 0.4 Mg Tab.Subl) 0.4 mg SUBLINGUAL Q5M PRN PRN Reason: Chest Pain Senna (Sennosides 8.6 Mg Tablet) 17.2 mg PO BEDTIME PRN PRN Reason: Constipation Sertraline HCl (Sertraline Hcl 50 Mg Tablet) 50 mg PO DAILY [facility] Last Admin: 06/22/21 09:21 Dose: 50 mg Documented by: Sodium Bicarbonate (Sodium Bicarbonate 650 Mg Tablet) 650 mg PO QID [facility] Last Admin: 06/22/21 09:21 Dose: 650 mg Documented by: Sodium Chloride (0.9 % Sodium Chloride Flush 3 Ml Syringe) 3 ml IVFLUSH QSHIFT [facility] Last Admin: 06/22/21 09:19 Dose: 3 ml Documented by: Trazodone HCl (Trazodone Hcl 50 Mg Tablet) 50 mg PO BEDTIME [facility] Last Admin: 06/21/21 20:44 Dose: 50 mg Documented by: Time Spent With Patient Time: Total time spent is greater than 50% in coordination of care (as documented) at patient's floor/unit and/or counseling patient: Time with patient: 25 - 35 minutes Progress Note: Quality Stroke Does the patient have a stroke diagnosis?: No Procedures Date of Service Date of Service: 06/22/21
[2021-06-22 11:21] LABS: Glucose, Whole Blood 134 mg/dL (60-115)
[2021-06-22] MEDS: hydrALAZINE HCl 25 MG TABLET PO ×2 (11:35→21:46)
[2021-06-22] MEDS: Furosemide 40 MG/4 ML VIAL IVPUSH (11:35)
[2021-06-22 12:31] LABS: B Type Natriuretic Peptide 918 pg/mL (<100)
[2021-06-22 16:23] LABS: Glucose, Whole Blood 171 mg/dL (60-115)
[2021-06-22] MEDS: Enoxaparin Sodium 30 MG/0.3 ML SYRINGE SUBCUT (17:08)
[2021-06-22] MEDS: Aspirin Enteric Coated 81 MG TABLET.DR PO (17:08)
[2021-06-22] MEDS: Atorvastatin Calcium 80 MG TABLET PO (17:08)
[2021-06-22 20:51] LABS: Glucose, Whole Blood 243 mg/dL (60-115)
[2021-06-22] MEDS: traZODone HCL 50 MG TABLET PO (21:46)
[2021-06-23] VITALS (9 sets, daily range): BP systolic 123–170; BP diastolic 46–76; PULSE 70–72; RESP 16–20; TEMP 36.1–36.6; O2SAT 91–100; BMI 39.9
[2021-06-23 06:38] LABS: Hematocrit 27.6 % (37-47); Hemoglobin 8.4 g/dl (12.0-16.0); Mean Corpuscular HGB Conc 30.4 g/dl (31.0-35.0); Mean Corpuscular Hemoglobin 25.8 pg (27.0-33.0); Mean Corpuscular Volume 84.9 fL (80-98); Mean Platelet Volume 10.7 fL (9.4-12.3); Platelet Count 255 X10*3/uL (160-400); Red Blood Count 3.25 X10*6/uL (4.20-5.50); Red Cell Distribution Width 13.9 % (11.0-16.0); White Blood Count 9.4 X10*3/uL (4.8-10.8)
[2021-06-23 06:41] LABS: Anion Gap 15 (12-20); Blood Urea Nitrogen 47 mg/dL (9-16); Calcium 8.3 mg/dL (8.4-10.2); Carbon Dioxide 24 mmol/L (22-29); Chloride 103 mmol/L (96-108); Creatinine Clr Calc Pharmacy 18.5; Estimated Glomerular Filt Rate 17; Glucose Fasting 219 mg/dL (60-99); Potassium 5.4 mmol/L (3.3-5.1); Sodium 137 mmol/L (135-145)
[2021-06-23 07:58] LABS: Glucose, Whole Blood 198 mg/dL (60-115)
[2021-06-23] MEDS: Furosemide 40 MG/4 ML VIAL IVPUSH (09:54)
[2021-06-23] MEDS: Sodium Bicarbonate 650 MG TABLET PO ×4 (09:54→21:08)
[2021-06-23] MEDS: Gabapentin 100 MG CAPSULE PO ×2 (09:54→21:09)
[2021-06-23] MEDS: Insulin Lispro 100 UNIT/ML 3 ML VIAL SUBCUT ×4 (09:54→21:09)
[2021-06-23] MEDS: amLODIPine Besylate 2.5 MG TABLET PO (09:55)
[2021-06-23] MEDS: Clopidogrel Bisulfate 75 MG TABLET PO (09:55)
[2021-06-23] MEDS: 0.9 % Sodium Chloride Flush 3 ML SYRINGE IVFLUSH ×2 (09:55→16:50)
[2021-06-23] MEDS: hydrALAZINE HCl 25 MG TABLET PO ×2 (09:55→21:08)
[2021-06-23] MEDS: Sertraline HCL 50 MG TABLET PO (09:55)
[2021-06-23] MEDS: Sodium Zirconium Cyclosilicate 10 GM POWD.PACK PO (10:00)
[2021-06-23 11:21] LABS: Glucose, Whole Blood 268 mg/dL (60-115)
--- NOTE | 2021-06-23 13:00 | MHC.CM.PN ---
Per RN's request, CM met with Patient and Daughter at bedside. Daughter has indicated that a Tube Maker from [facility] may be calling CM in regards to what services Patient receives. CM will follow.
--- NOTE | 2021-06-23 13:02 | MHC.CM.PN ---
Per MD, Patient will be medically cleared for dc to [facility] today. Patient will dc to [facility] today at 2PM, via [facility]. Second IMM addressed with Patient at bedside and original has been given to him and a copy placed on the chart. Patient is aware of and in agreement with the dc plan.
--- NOTE | 2021-06-23 13:17 | HO.PM.IMPN ---
Subjective Subjective Date of Service: 06/23/21 Interval History: Uneventful night. Sats 92% on room air. Still with mild shortness of breath at rest; no cardiac complaints Review of Systems No chest pain No shortness of breath No nausea vomiting Physical Exam Vital Signs: Vital Signs: Last Vital Signs Temp 97.8 F 06/23/21 11:07 Pulse 71 06/23/21 11:07 Resp 20 06/23/21 11:07 BP 160/72 H 06/23/21 11:07 Pulse Ox 98 06/23/21 11:07 Body Mass Index 39.9 Const: General: no acute distress HENMT: Other: Membranes moist Resp: Other: Bilateral basal or crackles to inferior scapular border; good aeration throughout Cardio: Rate: regular rate Rhythm: regular rhythm Heart sounds: S1 normal heart sound present, S2 normal heart sound present and no murmurs GI: Other: Soft obese nontender with normoactive bowel sounds Extrem: Other: Mild edema bilaterally (left BKA) Objective Data Active Medications Acetaminophen (Acetaminophen 325 Mg Tablet) 650 mg PO Q6H PRN PRN Reason: Pain, Mild (Pain Scale 1-3) Amlodipine Besylate (Amlodipine Besylate 2.5 Mg Tablet) 2.5 mg PO DAILY [facility]; Protocol Last Admin: 06/23/21 09:55 Dose: 2.5 mg Documented by: SHARIF Aspirin (Aspirin Enteric Coated 81 Mg Tablet.) 81 mg PO DAILY@1700 [facility] Last Admin: 06/22/21 17:08 Dose: 81 mg Documented by: MAGGIE Atorvastatin Calcium (Atorvastatin Calcium 80 Mg Tablet) 80 mg PO DAILY@1700 [facility] Last Admin: 06/22/21 17:08 Dose: 80 mg Documented by: MAGGIE Clopidogrel Bisulfate (Clopidogrel Bisulfate 75 Mg Tablet) 75 mg PO DAILY [facility] Last Admin: 06/23/21 09:55 Dose: 75 mg Documented by: SHARIF Dextrose (Dextrose 50 % 25 Gm/50 Ml Vial) 25 gm IVPUSH Q15M PRN; Protocol PRN Reason: per Hypoglycemia Standing Ord. Dextrose (Dextrose 50 % 25 Gm/50 Ml Vial) 25 gm IVPUSH Q15M PRN; Protocol PRN Reason: per Hypoglycemia Standing Ord. Enoxaparin Sodium (Enoxaparin Sodium 30 Mg/0.3 Ml Syringe) 30 mg SUBCUT Q24H [facility] Last Admin: 06/22/21 17:08 Dose: 30 mg Documented by: MAGGIE Gabapentin (Gabapentin 100 Mg Capsule) 100 mg PO BID [facility] Last Admin: 06/23/21 09:54 Dose: 100 mg Documented by: SHARIF Glucose (Glucose Gel 15 Gm Gel..Gram.) 15 gm PO Q15M PRN; Protocol PRN Reason: per Hypoglycemia Standing Ord. Glucose (Glucose Gel 15 Gm Gel..Gram.) 15 gm PO Q15M PRN; Protocol PRN Reason: per Hypoglycemia Standing Ord. Hydralazine HCl (Hydralazine Hcl 25 Mg Tablet) 25 mg PO BID [facility]; Protocol Last Admin: 06/23/21 09:55 Dose: 25 mg Documented by: SHARIF Furosemide 200 mg/ Sodium (Chloride) 100 mls @ 2.5 mls/hr IVCONT .Q24H [facility] Insulin Human Lispro (Insulin Lispro 100 Unit/Ml 3 Ml Vial) 0 unit SUBCUT QIDACHS [facility]; Protocol Last Admin: 06/23/21 12:20 Dose: 6 unit Documented by: SHARIF Melatonin (Melatonin 3 Mg Tablet) 6 mg PO BEDTIME PRN PRN Reason: Insomnia Nitroglycerin (Nitroglycerin 0.4 Mg Tab.Subl) 0.4 mg SUBLINGUAL Q5M PRN PRN Reason: Chest Pain Senna (Sennosides 8.6 Mg Tablet) 17.2 mg PO BEDTIME PRN PRN Reason: Constipation Sertraline HCl (Sertraline Hcl 50 Mg Tablet) 50 mg PO DAILY [facility] Last Admin: 06/23/21 09:55 Dose: 50 mg Documented by: SHARIF Sodium Bicarbonate (Sodium Bicarbonate 650 Mg Tablet) 650 mg PO QID [facility] Last Admin: 06/23/21 12:20 Dose: 650 mg Documented by: SHARIF Sodium Chloride (0.9 % Sodium Chloride Flush 3 Ml Syringe) 3 ml IVFLUSH QSHIFT [facility] Last Admin: 06/23/21 09:55 Dose: 3 ml Documented by: SHARIF Trazodone HCl (Trazodone Hcl 50 Mg Tablet) 50 mg PO BEDTIME [facility] Last Admin: 06/22/21 21:46 Dose: 50 mg Documented by: DIANE Labs CBC & Chem 7: 06/23/21 05:50 06/23/21 05:50 Labs: Laboratory Results - last 24 hr 06/22/21 06/22/21 06/23/21 15:56 20:17 05:50 MCV MCH MCHC RDW Plt Count MPV Absolute Nucleated RBC Nucleated RBC % (auto) Anion Gap 15 Estim Creat Clear Calc 18.5 Estimated GFR 17 POC Glucose 171 H 243 H Fasting Glucose 219 H Calcium 8.3 L 06/23/21 06/23/21 06/23/21 05:50 07:40 11:07 MCV 84.9 MCH 25.8 L MCHC 30.4 L RDW 13.9 Plt Count 255 MPV 10.7 Absolute Nucleated RBC 0.000 Nucleated RBC % (auto) 0.0 Anion Gap Estim Creat Clear Calc Estimated GFR POC Glucose 198 H 268 H Fasting Glucose Calcium Assessment and Plan (1) Acute congestive heart failure: Status: Acute Assessment and Plan: Discussed with cardiology. Will continue IV Lasix drip and follow renal function and BNP. Decision will be made on further management based on response to the drip (2) CKD (chronic kidney disease) stage 3, GFR 30-59 ml/min: Status: Acute Assessment and Plan: At baseline. No changes. Can follow-up with Renal as outpatient (3) Type 2 diabetes mellitus with unspecified complications: Status: Acute Assessment and Plan: Sugars are now elevated. Will introduce a sliding scale and adjust as indicated Assessment and Plan: Plan as ordered. Further plans based on clinical course forthcoming data Quality Stroke Does the patient have a stroke diagnosis?: No VTE Prior VTE?: No VTE Risk Level:: Medical - moderate - high VTE Device Contraindication: Treatment Not Indicated VTE Drug Contraindication: N/A - Med Ordered
[2021-06-23] MEDS: Furosemide 200 MG in 0.9 % Sodium Chloride 80 ML IVCONT (13:24)
--- NOTE | 2021-06-23 13:37 | MHC.CM.PN ---
Patient is not yet medically cleared for dc (IV Lasix Drip). Home/resume services is the goal for dc and CM will follow for possible need to adjust the dc plan.
--- NOTE | 2021-06-23 13:54 | P.PNCA_ITS ---
Subjective Subjective Date of Service: 06/23/21 Principal diagnosis: Decompensated congestive heart failure Interval history: Patient says shortness of breath is improved although still present and not back to baseline. Oxygen is borderline at 90s. Urine output ov ernight has been modest. BNP is not significantly reduced. Creatinine is slightly elevated. Review of Systems Constitutional: Reports no additional constitutional complaints Cardiovascular: Denies chest pain, Denies lightheadedness, Denies palpitations and Reports dyspnea on exertion Respiratory: Reports no additional respiratory complaints and Reports dyspnea on exertion Gastrointestinal: Reports no additional gastrointestinal complaints Skin/Breast: Reports system reviewed and no additional complaints, except as docu Reports system reviewed and no additional complaints, except as documented Endocrine: Reports no additional endocrine complaints and Denies palpitations Physical Exam Vital Signs: Last Vital Signs Temp 97.8 F 06/23/21 11:07 Pulse 71 06/23/21 11:07 Resp 20 06/23/21 11:07 BP 160/72 H 06/23/21 11:07 Pulse Ox 98 06/23/21 11:07 Body Mass Index 39.9 Const General: cooperative, comfortable and no acute distress Nutritional Appearance: obese Orientation/consciousness: patient oriented x3 Neck Neck: Yes trachea midline, Yes supple and Yes other (Difficult to evaluate JVD) Resp Effort & Inspection: normal respiratory effort Auscultation: rales Cardio Rate: regular rate Rhythm: regular rhythm Heart sounds: S1 normal heart sound present, S2 normal heart sound present, no click, no gallops and no murmurs Skin General skin exam: no rashes or lesions noted Neuro General: patient oriented x3 Results Labs and Meds Result diagrams: 06/23/21 05:50 06/23/21 05:50 Lab results: Laboratory Results - last 24 hr 06/22/21 06/22/21 06/23/21 15:56 20:17 05:50 WBC RBC Hgb Hct MCV MCH MCHC RDW Plt Count MPV Absolute Nucleated RBC Nucleated RBC % (auto) Sodium 137 Potassium 5.4 H Chloride 103 Carbon Dioxide 24 Anion Gap 15 BUN 47 H Creatinine 2.71 H Estim Creat Clear Calc 18.5 Estimated GFR 17 POC Glucose 171 H 243 H Fasting Glucose 219 H Calcium 8.3 L 06/23/21 06/23/21 06/23/21 05:50 07:40 11:07 WBC 9.4 RBC 3.25 L Hgb 8.4 L Hct 27.6 L MCV 84.9 MCH 25.8 L MCHC 30.4 L RDW 13.9 Plt Count 255 MPV 10.7 Absolute Nucleated RBC 0.000 Nucleated RBC % (auto) 0.0 Sodium Potassium Chloride Carbon Dioxide Anion Gap BUN Creatinine Estim Creat Clear Calc Estimated GFR POC Glucose 198 H 268 H Fasting Glucose Calcium Progress Note: A&P Assessment and plan (1) Acute congestive heart failure: Status: Acute Assessment and Plan: Acute CHF with not adequate diuresis with BNP still not significantly improved. Clinically has rales. Difficult to evaluate overall fluid status due to her body habitus. Restart Lasix drip at 5 mg an hour. Strict intake and output chart needs to be pursued. Continue aggressive control of blood pressure. Continue current antihypertensive therapy. CHF education to be provided. Follow-up BMP and BNP tomorrow. Will follow with the patient. Fall Risk Details Current Medications: Current Medications Acetaminophen (Acetaminophen 325 Mg Tablet) 650 mg PO Q6H PRN PRN Reason: Pain, Mild (Pain Scale 1-3) Amlodipine Besylate (Amlodipine Besylate 2.5 Mg Tablet) 2.5 mg PO DAILY [facility]; Protocol Last Admin: 06/23/21 09:55 Dose: 2.5 mg Documented by: Aspirin (Aspirin Enteric Coated 81 Mg Tablet.) 81 mg PO DAILY@1700 [facility] Last Admin: 06/22/21 17:08 Dose: 81 mg Documented by: Atorvastatin Calcium (Atorvastatin Calcium 80 Mg Tablet) 80 mg PO DAILY@1700 [facility] Last Admin: 06/22/21 17:08 Dose: 80 mg Documented by: Clopidogrel Bisulfate (Clopidogrel Bisulfate 75 Mg Tablet) 75 mg PO DAILY [facility] Last Admin: 06/23/21 09:55 Dose: 75 mg Documented by: Dextrose (Dextrose 50 % 25 Gm/50 Ml Vial) 25 gm IVPUSH Q15M PRN; Protocol PRN Reason: per Hypoglycemia Standing Ord. Dextrose (Dextrose 50 % 25 Gm/50 Ml Vial) 25 gm IVPUSH Q15M PRN; Protocol PRN Reason: per Hypoglycemia Standing Ord. Enoxaparin Sodium (Enoxaparin Sodium 30 Mg/0.3 Ml Syringe) 30 mg SUBCUT Q24H [facility] Last Admin: 06/22/21 17:08 Dose: 30 mg Documented by: Gabapentin (Gabapentin 100 Mg Capsule) 100 mg PO BID [facility] Last Admin: 06/23/21 09:54 Dose: 100 mg Documented by: Glucose (Glucose Gel 15 Gm Gel..Gram.) 15 gm PO Q15M PRN; Protocol PRN Reason: per Hypoglycemia Standing Ord. Glucose (Glucose Gel 15 Gm Gel..Gram.) 15 gm PO Q15M PRN; Protocol PRN Reason: per Hypoglycemia Standing Ord. Hydralazine HCl (Hydralazine Hcl 25 Mg Tablet) 25 mg PO BID [facility]; Protocol Last Admin: 06/23/21 09:55 Dose: 25 mg Documented by: Furosemide 200 mg/ Sodium (Chloride) 100 mls @ 2.5 mls/hr IVCONT .Q24H [facility] Last Admin: 06/23/21 13:24 Dose: 5 mg/hr, 2.5 mls/hr Documented by: Insulin Human Lispro (Insulin Lispro 100 Unit/Ml 3 Ml Vial) 0 unit SUBCUT Q IDACHS [facility]; Protocol Last Admin: 06/23/21 12:20 Dose: 6 unit Documented by: Insulin Human Lispro (Insulin Lispro 100 Unit/Ml 3 Ml Vial) 0 unit SUBCUT QIDAS [facility]; Protocol Melatonin (Melatonin 3 Mg Tablet) 6 mg PO BEDTIME PRN PRN Reason: Insomnia Nitroglycerin (Nitroglycerin 0.4 Mg Tab.Subl) 0.4 mg SUBLINGUAL Q5M PRN PRN Reason: Chest Pain Senna (Sennosides 8.6 Mg Tablet) 17.2 mg PO BEDTIME PRN PRN Reason: Constipation Sertraline HCl (Sertraline Hcl 50 Mg Tablet) 50 mg PO DAILY [facility] Last Admin: 06/23/21 09:55 Dose: 50 mg Documented by: Sodium Bicarbonate (Sodium Bicarbonate 650 Mg Tablet) 650 mg PO QID [facility] Last Admin: 06/23/21 12:20 Dose: 650 mg Documented by: Sodium Chloride (0.9 % Sodium Chloride Flush 3 Ml Syringe) 3 ml IVFLUSH QSHIFT [facility] Last Admin: 06/23/21 09:55 Dose: 3 ml Documented by: Trazodone HCl (Trazodone Hcl 50 Mg Tablet) 50 mg PO BEDTIME [facility] Last Admin: 06/22/21 21:46 Dose: 50 mg Documented by: Time Spent With Patient Time: Total time spent is greater than 50% in coordination of care (as documented) at patient's floor/unit and/or counseling patient: Time with patient: 15 - 24 minutes Progress Note: Quality Stroke Does the patient have a stroke diagnosis?: No Procedures Date of Service Date of Service: 06/23/21
[2021-06-23 14:18] LABS: B Type Natriuretic Peptide 1103 pg/mL (<100)
[2021-06-23 14:19] LABS: Alanine Aminotransferase 13 U/L (0-31); Albumin Level 3.4 g/dL (3.5-5.0); Alkaline Phosphatase 178 U/L (39-117); Anion Gap 15 (12-20); Aspartate Amino Transferase 12 U/L (5-31); Bilirubin Total 0.3 mg/dL (0.0-1.0); Blood Urea Nitrogen 47 mg/dL (9-16); Calcium 8.3 mg/dL (8.4-10.2); Carbon Dioxide 27 mmol/L (22-29); Chloride 102 mmol/L (96-108); Creatinine Clr Calc Pharmacy 17.9; Estimated Glomerular Filt Rate 17; Glucose Fasting 315 mg/dL (60-99); Potassium 5.5 mmol/L (3.3-5.1); Sodium 138 mmol/L (135-145); Total Protein 6.9 g/dL (6.5-8.0)
[2021-06-23 16:22] LABS: Glucose, Whole Blood 251 mg/dL (60-115)
[2021-06-23] MEDS: Aspirin Enteric Coated 81 MG TABLET.DR PO (16:50)
[2021-06-23] MEDS: Atorvastatin Calcium 80 MG TABLET PO (16:51)
[2021-06-23] MEDS: Enoxaparin Sodium 30 MG/0.3 ML SYRINGE SUBCUT (16:51)
[2021-06-23 20:35] LABS: Glucose, Whole Blood 242 mg/dL (60-115)
[2021-06-23] MEDS: traZODone HCL 50 MG TABLET PO (21:08)
[2021-06-24 04:00] VITALS: BP 156/66; PULSE 73; RESP 18; TEMP 36.9; O2SAT 93
[2021-06-24 06:00] VITALS: BMI 39.4
[2021-06-24 06:18] LABS: MANUAL DIFF FLAG NO
[2021-06-24 06:25] LABS: Basophils Percent Auto 0.2 % (0-2); Eosinophils Absolute Auto 0.4 X10*3/uL (0.0-0.4); Eosinophils Percent Auto 4.3 % (0-4); Hematocrit 27.6 % (37-47); Hemoglobin 8.4 g/dl (12.0-16.0); Imm Gran Abs Auto 0.04 X10*3/uL (0.00-0.03); Imm Gran Pct Auto 0.4 % (0.0-0.4); Lymphocytes Absolute Auto 1.5 X10*3/uL (1.2-4.9); Lymphocytes Percent Auto 16.3 % (20-40); Mean Corpuscular HGB Conc 30.4 g/dl (31.0-35.0); Mean Corpuscular Hemoglobin 25.8 pg (27.0-33.0); Mean Corpuscular Volume 84.9 fL (80-98); Mean Platelet Volume 10.7 fL (9.4-12.3); Monocytes Absolute Auto 0.7 X10*3/uL (0.1-1.2); Monocytes Percent Auto 7.5 % (2-11); Neutrophils Absolute Auto 6.4 X10*3/uL (2.0-8.3); Neutrophils Percent Auto 71.3 % (45-73); Platelet Count 255 X10*3/uL (160-400); Red Blood Count 3.25 X10*6/uL (4.20-5.50); Red Cell Distribution Width 13.8 % (11.0-16.0)
[2021-06-24 07:23] LABS: Glucose, Whole Blood 200 mg/dL (60-115)
[2021-06-24 07:35] VITALS: BP 153/62; PULSE 74; RESP 18; TEMP 36.9; O2SAT 98
[2021-06-24 08:08] VITALS: BP 153/62; PULSE 74
[2021-06-24] MEDS: amLODIPine Besylate 2.5 MG TABLET PO (08:08)
[2021-06-24] MEDS: Insulin Lispro 100 UNIT/ML 3 ML VIAL SUBCUT ×2 (08:08→12:09)
[2021-06-24] MEDS: Gabapentin 100 MG CAPSULE PO (08:08)
[2021-06-24 08:09] VITALS: BP 153/62; PULSE 74
[2021-06-24] MEDS: Sertraline HCL 50 MG TABLET PO (08:09)
[2021-06-24] MEDS: hydrALAZINE HCl 25 MG TABLET PO (08:09)
[2021-06-24] MEDS: Sodium Bicarbonate 650 MG TABLET PO ×2 (08:09→14:43)
[2021-06-24] MEDS: Clopidogrel Bisulfate 75 MG TABLET PO (08:09)
[2021-06-24 09:34] LABS: Anion Gap 15 (12-20); Blood Urea Nitrogen 48 mg/dL (9-16); Calcium 8.4 mg/dL (8.4-10.2); Carbon Dioxide 27 mmol/L (22-29); Chloride 101 mmol/L (96-108); Creatinine Clr Calc Pharmacy 18.5; Estimated Glomerular Filt Rate 18; Glucose Random 234 mg/dL (60-115); Potassium 4.4 mmol/L (3.3-5.1); Sodium 139 mmol/L (135-145)
--- NOTE | 2021-06-24 10:03 | HO.PM.IMPN ---
Subjective Subjective Date of Service: 06/24/21 Interval History: seen and examined this AM wants to go home, feels much better denies SOB or cough Review of Systems General - no fevers or chills Cardiovascular - no chest pain Respiratory - no shortness of breath or cough Abdominal- no abdominal pain, nausea, vomiting, diarrhea Physical Exam Vital Signs: Vital Signs: Last Vital Signs Temp 98.5 F 06/24/21 07:35 Pulse 74 06/24/21 08:09 Resp 18 06/24/21 07:35 BP 153/62 H 06/24/21 08:09 Pulse Ox 98 06/24/21 07:35 Body Mass Index 39.4 Const: Other: General - no acute distress, appears comfortable Cardiovascular - regular rate and rhythm, S1-S2 Lungs - no resp distress Abdomen - soft, nontender, no rebound or guarding Extremities - L BKA, no major edema RLE Neuro - awake and alert, no focal deficits Objective Data Active Medications Acetaminophen (Acetaminophen 325 Mg Tablet) 650 mg PO Q6H PRN PRN Reason: Pain, Mild (Pain Scale 1-3) Amlodipine Besylate (Amlodipine Besylate 2.5 Mg Tablet) 2.5 mg PO DAILY [facility]; Protocol Last Admin: 06/24/21 08:08 Dose: 2.5 mg Documented by: FRANCES Aspirin (Aspirin Enteric Coated 81 Mg Tablet.) 81 mg PO DAILY@1700 [facility] Last Admin: 06/23/21 16:50 Dose: 81 mg Documented by: SHARIF Atorvastatin Calcium (Atorvastatin Calcium 80 Mg Tablet) 80 mg PO DAILY@1700 [facility] Last Admin: 06/23/21 16:51 Dose: 80 mg Documented by: SHARIF Clopidogrel Bisulfate (Clopidogrel Bisulfate 75 Mg Tablet) 75 mg PO DAILY [facility] Last Admin: 06/24/21 08:09 Dose: 75 mg Documented by: FRANCES Dextrose (Dextrose 50 % 25 Gm/50 Ml Vial) 25 gm IVPUSH Q15M PRN; Protocol PRN Reason: per Hypoglycemia Standing Ord. Dextrose (Dextrose 50 % 25 Gm/50 Ml Vial) 25 gm IVPUSH Q15M PRN; Protocol PRN Reason: per Hypoglycemia Standing Ord. Enoxaparin Sodium (Enoxaparin Sodium 30 Mg/0.3 Ml Syringe) 30 mg SUBCUT Q24H [facility] Last Admin: 06/23/21 16:51 Dose: 30 mg Documented by: SHARIF Gabapentin (Gabapentin 100 Mg Capsule) 100 mg PO BID [facility] Last Admin: 06/24/21 08:08 Dose: 100 mg Documented by: FRANCES Glucose (Glucose Gel 15 Gm Gel..Gram.) 15 gm PO Q15M PRN; Protocol PRN Reason: per Hypoglycemia Standing Ord. Glucose (Glucose Gel 15 Gm Gel..Gram.) 15 gm PO Q15M PRN; Protocol PRN Reason: per Hypoglycemia Standing Ord. Hydralazine HCl (Hydralazine Hcl 25 Mg Tablet) 25 mg PO BID [facility]; Protocol Last Admin: 06/24/21 08:09 Dose: 25 mg Documented by: FRANCES Furosemide 200 mg/ Sodium (Chloride) 100 mls @ 2.5 mls/hr IVCONT .Q24H [facility] Last Admin: 06/23/21 13:24 Dose: 5 mg/hr, 2.5 mls/hr Documented by: SHARIF Insulin Human Lispro (Insulin Lispro 100 Unit/Ml 3 Ml Vial) 0 unit SUBCUT [facility]; Protocol Last Admin: 06/24/21 08:08 Dose: 2 unit Documented by: FRANCES Insulin Human Lispro (Insulin Lispro 100 Unit/Ml 3 Ml Vial) 0 unit SUBCUT [facility]; Protocol Last Admin: 06/24/21 07:18 Dose: Not Given Documented by: FRANCES Non-Admin Reason: Duplicate Order Melatonin (Melatonin 3 Mg Tablet) 6 mg PO BEDTIME PRN PRN Reason: Insomnia Nitroglycerin (Nitroglycerin 0.4 Mg Tab.Subl) 0.4 mg SUBLINGUAL Q5M PRN PRN Reason: Chest Pain Senna (Sennosides 8.6 Mg Tablet) 17.2 mg PO BEDTIME PRN PRN Reason: Constipation Sertraline HCl (Sertraline Hcl 50 Mg Tablet) 50 mg PO DAILY [facility] Last Admin: 06/24/21 08:09 Dose: 50 mg Documented by: FRANCES Sodium Bicarbonate (Sodium Bicarbonate 650 Mg Tablet) 650 mg PO QID [facility] Last Admin: 06/24/21 08:09 Dose: 650 mg Documented by: FRANCES Sodium Chloride (0.9 % Sodium Chloride Flush 3 Ml Syringe) 3 ml IVFLUSH QSHIFT [facility] Last Admin: 06/24/21 08:08 Dose: Not Given Documented by: FRANCES Non-Admin Reason: IV Running Trazodone HCl (Trazodone Hcl 50 Mg Tablet) 50 mg PO BEDTIME [facility] Last Admin: 06/23/21 21:08 Dose: 50 mg Documented by: ARASH Labs CBC & Chem 7: 06/24/21 05:40 06/24/21 09:09 Labs: Laboratory Results - last 24 hr 06/23/21 06/23/21 06/23/21 11:07 13:49 13:49 MCV MCH MCHC RDW Plt Count MPV Immature Gran % (Auto) Neut % (Auto) Lymph % (Auto) [place] % (Auto) Eos % (Auto) Baso % (Auto) Lymph # (Auto) [place] # (Auto) Eos # (Auto) Baso # (Auto) Abs Immat Gran (auto) Absolute Neuts (auto) Absolute Nucleated RBC Nucleated RBC % (auto) Anion Gap 15 Estim Creat Clear Calc 17.9 Estimated GFR 17 POC Glucose 268 H Random Glucose Fasting Glucose 315 H Calcium 8.3 L Total Bilirubin 0.3 AST 12 ALT 13 Alkaline Phosphatase 178 H D B-Natriuretic Peptide 1103 H Total Protein 6.9 Albumin 3.4 L 06/23/21 06/23/21 06/24/21 16:11 20:27 05:40 MCV 84.9 MCH 25.8 L MCHC 30.4 L RDW 13.8 Plt Count 255 MPV 10.7 Immature Gran % (Auto) 0.4 Neut % (Auto) 71.3 Lymph % (Auto) 16.3 L [place] % (Auto) 7.5 Eos % (Auto) 4.3 H Baso % (Auto) 0.2 Lymph # (Auto) 1.5 [place] # (Auto) 0.7 Eos # (Auto) 0.4 Baso # (Auto) 0.0 Abs Immat Gran (auto) 0.04 H Absolute Neuts (auto) 6.4 Absolute Nucleated RBC 0.000 Nucleated RBC % (auto) 0.0 Anion Gap Estim Creat Clear Calc Estimated GFR POC Glucose 251 H 242 H Random Glucose Fasting Glucose Calcium Total Bilirubin AST ALT Alkaline Phosphatase B-Natriuretic Peptide Total Protein Albumin 06/24/21 06/24/21 07:14 09:09 MCV MCH MCHC RDW Plt Count MPV Immature Gran % (Auto) Neut % (Auto) Lymph % (Auto) [place] % (Auto) Eos % (Auto) Baso % (Auto) Lymph # (Auto) [place] # (Auto) Eos # (Auto) Baso # (Auto) Abs Immat Gran (auto) Absolute Neuts (auto) Absolute Nucleated RBC Nucleated RBC % (auto) Anion Gap 15 Estim Creat Clear Calc 18.5 Estimated GFR 18 POC Glucose 200 H Random Glucose 234 H Fasting Glucose Calcium 8.4 Total Bilirubin AST ALT Alkaline Phosphatase B-Natriuretic Peptide Total Protein Albumin Assessment and Plan (1) Acute congestive heart failure: Status: Acute Assessment and Plan: This is a 66 yo F admitted for: 1. Acute respiratory failure with hypoxia O2 saturation down to 89% while in the ED due to fluid overload from CHF 2. Acute on chronic HFpEF clinically improving on iv lasix gtt at 5mg/hr neg 3L fluid balance since yesterday continue the drip for now -- will ask cardiology re: transition to oral 3. CKD4 improving with diuresis monitor 4. DM basal + bolus 5. Recent Thalamic infarct on asa + plavix, continue 6. HTN stable, but not ideal should improve with diuresis continue current regime Full Code DVT pptx, change lovenox to subcut. heparin Dispo: anticipate d/c within next 24 to 48 hours Quality Stroke Does the patient have a stroke diagnosis?: No VTE Prior VTE?: No VTE Risk Level:: Medical - moderate - high VTE Device Contraindication: Treatment Not Indicated VTE Drug Contraindication: N/A - Med Ordered
[2021-06-24 10:55] LABS: Glucose, Whole Blood 213 mg/dL (60-115)
[2021-06-24 11:06] LABS: B Type Natriuretic Peptide 495 pg/mL (<100)
[2021-06-24 11:16] VITALS: BP 135/50; PULSE 70; RESP 18; TEMP 36.9; O2SAT 97
--- NOTE | 2021-06-24 11:39 | PM.DS ---
DS: Providers Provider Date of Service: 06/24/21 Date of admission: 06/20/21 23:21 Primary care physician: Alexys Avila MD Consults: 06/20/21 23:21 Consult to Cardiology Routine Consulting Provider: Nik Lou Reason for consultation: CHf 06/22/21 11:13 Consult to Nephrology Routine Consulting Provider: Nahum Trevizo Reason for consultation: anemia Has provider been notified: No DS: Diagnosis Discharge Diagnosis (1) Acute congestive heart failure: Status: Acute (2) Acute respiratory failure with hypoxia: Status: Acute (3) CKD (chronic kidney disease), stage IV: Status: Acute DS: Summary Hospital Course Hospital Course: HPI: 66-year-old female with a past medical history of hypertension, hyperlipidemia, diabetes, gastroparesis, history of left AKA, CVA, CKD, GERD, cardiomyopathy, recent admission to the hospital for GIL on CKD; presented to the hospital today with a chief complaint of shortness of breath. Patient reported that over the past 3 days she has been having shortness of breath which has been gradually worsening; denies any cough or sputum production. Reports that she has been complaint with home medications. Denies any fevers and chills. Denies any GI or symptoms. Patient denies any chest pain palpitations lightheadedness or dizziness. Patient reports she has wheelchair; also does not lie flat on her bed in general. Reports he has been having swelling in her right lower extremity Hospital Course: Patient presented to the hospital with fluid overload and hypoxia. It was unclear if she has been taking her diuretics at home. She was treated initially with IV push lasix but eventually required IV lasix drip. She was diuresed >6L neg fluid balance. Her BNP is downtrending. She is off oxygen and will be d/c home on lasix 40mg BID. She will haave [facility] for CHF education and monitoring. She will have repeat BMP in 1 week and f/u with cardiology clinic. Time Spent with Patient Time attestation: Total time spent providing and/or coordinating discharge services: Discharge coordination time: Greater than 30 minutes Quality: Stroke Does the patient have a stroke diagnosis?: No Physical Exam Vital Signs: Vital Signs: Last Vital Signs Temp 98.4 F 06/24/21 11:16 Pulse 70 06/24/21 11:16 Resp 18 06/24/21 11:16 BP 135/50 L 06/24/21 11:16 Pulse Ox 97 06/24/21 11:16 Body Mass Index 39.4 Const: Other: General - no acute distress, appears comfortable Cardiovascular - regular rate and rhythm, S1-S2 Lungs - normal respiratory effort, clear to auscultation bilaterally, no wheezing Abdomen - soft, nontender, no rebound or guarding Extremities - no edema RLE Neuro - awake and alert, no focal deficits DS: Data Data Completed and Pending Completed studies during hospitalization [Text1]: Procedures Introduction of Other Thrombolytic into Peripheral Vein, Percutaneous Approach (06/05/21) Transfusion of Nonautologous Red Blood Cells into Peripheral Vein, Percutaneous Approach (12/24/20) Labs on day of discharge: Laboratory Results - last 24 hr 06/23/21 06/23/21 06/23/21 13:49 13:49 16:11 WBC RBC Hgb Hct MCV MCH MCHC RDW Plt Count MPV Immature Gran % (Auto) Neut % (Auto) Lymph % (Auto) [place] % (Auto) Eos % (Auto) Baso % (Auto) Lymph # (Auto) [place] # (Auto) Eos # (Auto) Baso # (Auto) Abs Immat Gran (auto) Absolute Neuts (auto) Absolute Nucleated RBC Nucleated RBC % (auto) Sodium 138 Potassium 5.5 H Chloride 102 Carbon Dioxide 27 Anion Gap 15 BUN 47 H Creatinine 2.80 H Estim Creat Clear Calc 17.9 Estimated GFR 17 POC Glucose 251 H Random Glucose Fasting Glucose 315 H Calcium 8.3 L Total Bilirubin 0.3 AST 12 ALT 13 Alkaline Phosphatase 178 H D B-Natriuretic Peptide 1103 H Total Protein 6.9 Albumin 3.4 L 06/23/21 06/24/21 06/24/21 20:27 05:40 07:14 WBC 9.0 RBC 3.25 L Hgb 8.4 L Hct 27.6 L MCV 84.9 MCH 25.8 L MCHC 30.4 L RDW 13.8 Plt Count 255 MPV 10.7 Immature Gran % (Auto) 0.4 Neut % (Auto) 71.3 Lymph % (Auto) 16.3 L [place] % (Auto) 7.5 Eos % (Auto) 4.3 H Baso % (Auto) 0.2 Lymph # (Auto) 1.5 [place] # (Auto) 0.7 Eos # (Auto) 0.4 Baso # (Auto) 0.0 Abs Immat Gran (auto) 0.04 H Absolute Neuts (auto) 6.4 Absolute Nucleated RBC 0.000 Nucleated RBC % (auto) 0.0 Sodium Potassium Chloride Carbon Dioxide Anion Gap BUN Creatinine Estim Creat Clear Calc Estimated GFR POC Glucose 242 H 200 H Random Glucose Fasting Glucose Calcium Total Bilirubin AST ALT Alkaline Phosphatase B-Natriuretic Peptide Total Protein Albumin 06/24/21 06/24/21 06/24/21 09:09 10:26 10:49 WBC RBC Hgb Hct MCV MCH MCHC RDW Plt Count MPV Immature Gran % (Auto) Neut % (Auto) Lymph % (Auto) [place] % (Auto) Eos % (Auto) Baso % (Auto) Lymph # (Auto) [place] # (Auto) Eos # (Auto) Baso # (Auto) Abs Immat Gran (auto) Absolute Neuts (auto) Absolute Nucleated RBC Nucleated RBC % (auto) Sodium 139 Potassium 4.4 Chloride 101 Carbon Dioxide 27 Anion Gap 15 BUN 48 H Creatinine 2.69 H Estim Creat Clear Calc 18.5 Estimated GFR 18 POC Glucose 213 H Random Glucose 234 H Fasting Glucose Calcium 8.4 Total Bilirubin AST ALT Alkaline Phosphatase B-Natriuretic Peptide 495 H Total Protein Albumin Discharge Plan Discharge Patient Disposition: Home Health Service Discharge Diagnosis: Acute HFpEF Referrals: Alexys Avila MD [Primary Care Provider] - 1 Week (Your doctor's office should call you to schedule a follow up appointment.) Discharge Medications: New hydralazine 25 mg Tablet 25 mg PO BID Qty: 60 RF: 0 furosemide [Lasix] 40 mg tablet 40 mg PO BID Qty: 60 RF: 0 Continued atorvastatin 80 mg tablet 80 mg PO QPM RF: 0 trazodone 50 mg tablet 50 mg PO BEDTIME RF: 0 amlodipine 2.5 mg tablet 2.5 mg PO QAM RF: 0 clopidogrel 75 mg tablet 75 mg PO QAM RF: 0 aspirin 81 mg tablet,delayed release (DR/EC) 81 mg PO QPM RF: 0 magnesium oxide 400 mg (241.3 mg magnesium) tablet 400 mg PO BID RF: 0 sodium bicarbonate 650 mg tablet 650 mg PO QID RF: 0 gabapentin 100 mg capsule 100 mg PO BID RF: 0 sertraline 50 mg tablet 50 mg PO DAILY RF: 0 insulin aspart U-100 [Novolog Flexpen U-100 Insulin] 100 unit/mL (3 mL) insulin pen 8 - 24 unit subcut TID RF: 0 calcium carbonate-vitamin D3 600 mg(1,500mg) -400 unit tablet 600 tab PO BID RF: 0 Lantus Solostar U-100 Insulin 100 unit/mL (3 mL) insulin pen 64 unit subcut DAILY RF: 0 Discontinued hydralazine 10 mg tablet 10 mg PO BID RF: 0 furosemide 20 mg tablet 0.5 tab PO Q OTHER DAY RF: 0 Discharge Orders: Discharge Order (Routine); Ordered 06/24/21 Ordered By: Constantino Feliz Diet: advance to usual diet Activity on Discharge: As tolerated Stand Alone Forms: Patient Portal Discharge page Other Ambulatory Orders: Basic Metabolic Panel (Routine) Timeframe: 1 Week Facility: [facility] - Location: Laboratory Ordered By: Constantino Feliz Care Plan Goals: To stay healthy and out of the hospital. Health Concerns: CHF, fluid overload Plan of Treatment: Take lasix 40mg BID. Recheck BMP next week. Follow up with cardiology next week. Assessment: 66 yo F with HFpEF treated with IV diuretics. Will be d/c on oral lasix 40mg BID. To have [facility] for CHF teaching. To follow up with cardiology next week.
--- NOTE | 2021-06-24 12:05 | P.F2F_ITS ---
Service Date Service Date: 06/24/21 Encounter Date of encounter: 06/24/21 Reasons for Services Signs and symptoms assessed: CHF Reason for long-term: medication management, medication treatment and teach disease management MD Overseeing Care: Alexys Avila Homebound: Leaving the home is medically contraindicated at this time without the asist of a device and/or another person due th the listed conditions above and below. Certification: Based on the above findings, I certify that this patient is confined to the home and needs intermittent long-term care, physical therapy and/or speech therapy, or continues to need occupational therapy. The patient is under my care, and I have initiated the establishment of the plan of care. The patient will be followed by a physician who will periodically review the plan of care.
--- NOTE | 2021-06-24 12:08 | PM.PNCARD ---
Subjective Subjective Date of Service: 06/24/21 Principal diagnosis: Decompensated congestive heart failure Interval history: Patient feeling better. Has diuresed well overnight. BNP in the 490s range. Blood pressure is borderline elevated still. Denies any chest pain or palpitations. Review of Systems Constitutional: Reports no additional constitutional complaints Cardiovascular: Reports no additional cardiovascular complaints Respiratory: Reports no additional respiratory complaints Gastrointestinal: Reports no additional gastrointestinal complaints Musculoskeletal: Reports no additional musculoskeletal complaints Reports system reviewed and no additional complaints, except as documented Psychiatric: Reports no additional psychiatric complaints Endocrine: Reports no additional endocrine complaints Physical Exam Vital Signs: Last Vital Signs Temp 98.4 F 06/24/21 11:16 Pulse 70 06/24/21 11:16 Resp 18 06/24/21 11:16 BP 135/50 L 06/24/21 11:16 Pulse Ox 97 06/24/21 11:16 Body Mass Index 39.4 Const General: cooperative, comfortable and no acute distress Nutritional Appearance: obese Orientation/consciousness: patient oriented x3 Neck Neck: Yes trachea midline, Yes supple and Yes no JVD Resp Effort & Inspection: normal respiratory effort Auscultation: no rales, no wheezes and diminished lung sounds Cardio Palpation: normal PMI Rate: regular rate Rhythm: regular rhythm Heart sounds: S1 normal heart sound present, S2 normal heart sound present, no click, no gallops and no murmurs Neuro General: patient oriented x3 Extrem General: Yes no clubbing, cyanosis or edema Results Labs and Meds Result diagrams: 06/24/21 05:40 06/24/21 09:09 Lab results: Laboratory Results - last 24 hr 06/23/21 06/23/21 06/23/21 13:49 13:49 16:11 WBC RBC Hgb Hct MCV MCH MCHC RDW Plt Count MPV Immature Gran % (Auto) Neut % (Auto) Lymph % (Auto) [place] % (Auto) Eos % (Auto) Baso % (Auto) Lymph # (Auto) [place] # (Auto) Eos # (Auto) Baso # (Auto) Abs Immat Gran (auto) Absolute Neuts (auto) Absolute Nucleated RBC Nucleated RBC % (auto) Sodium 138 Potassium 5.5 H Chloride 102 Carbon Dioxide 27 Anion Gap 15 BUN 47 H Creatinine 2.80 H Estim Creat Clear Calc 17.9 Estimated GFR 17 POC Glucose 251 H Random Glucose Fasting Glucose 315 H Calcium 8.3 L Total Bilirubin 0.3 AST 12 ALT 13 Alkaline Phosphatase 178 H D B-Natriuretic Peptide 1103 H Total Protein 6.9 Albumin 3.4 L 06/23/21 06/24/21 06/24/21 20:27 05:40 07:14 WBC 9.0 RBC 3.25 L Hgb 8.4 L Hct 27.6 L MCV 84.9 MCH 25.8 L MCHC 30.4 L RDW 13.8 Plt Count 255 MPV 10.7 Immature Gran % (Auto) 0.4 Neut % (Auto) 71.3 Lymph % (Auto) 16.3 L [place] % (Auto) 7.5 Eos % (Auto) 4.3 H Baso % (Auto) 0.2 Lymph # (Auto) 1.5 [place] # (Auto) 0.7 Eos # (Auto) 0.4 Baso # (Auto) 0.0 Abs Immat Gran (auto) 0.04 H Absolute Neuts (auto) 6.4 Absolute Nucleated RBC 0.000 Nucleated RBC % (auto) 0.0 Sodium Potassium Chloride Carbon Dioxide Anion Gap BUN Creatinine Estim Creat Clear Calc Estimated GFR POC Glucose 242 H 200 H Random Glucose Fasting Glucose Calcium Total Bilirubin AST ALT Alkaline Phosphatase B-Natriuretic Peptide Total Protein Albumin 06/24/21 06/24/21 06/24/21 09:09 10:26 10:49 WBC RBC Hgb Hct MCV MCH MCHC RDW Plt Count MPV Immature Gran % (Auto) Neut % (Auto) Lymph % (Auto) [place] % (Auto) Eos % (Auto) Baso % (Auto) Lymph # (Auto) [place] # (Auto) Eos # (Auto) Baso # (Auto) Abs Immat Gran (auto) Absolute Neuts (auto) Absolute Nucleated RBC Nucleated RBC % (auto) Sodium 139 Potassium 4.4 Chloride 101 Carbon Dioxide 27 Anion Gap 15 BUN 48 H Creatinine 2.69 H Estim Creat Clear Calc 18.5 Estimated GFR 18 POC Glucose 213 H Random Glucose 234 H Fasting Glucose Calcium 8.4 Total Bilirubin AST ALT Alkaline Phosphatase B-Natriuretic Peptide 495 H Total Protein Albumin Progress Note: A&P Assessment and plan (1) Acute congestive heart failure: Status: Acute Assessment and Plan: Patient admitted with hypoxic respiratory failure secondary congestive heart failure. Doing much better now. BNP is improved significantly with diuresis. Can be switched to p.o. Lasix 40 mg b.i.d.. CHF education needs to be provided. Given her limited exercise capacity and advanced kidney disease with difficult to determine fluid status I think she is a good candidate for CardioMEMS device to avoid recurrent hospitalizations. This was discussed with her and her daughter previously and they are both agreeable for the same. Will set up for outpatient follow-up in 1 weeks time. Aggressive blood pressure control as outpatient is important. Low-salt diet needs to be pursued. Will follow as outpatient. Fall Risk Details Current Medications: Current Medications Acetaminophen (Acetaminophen 325 Mg Tablet) 650 mg PO Q6H PRN PRN Reason: Pain, Mild (Pain Scale 1-3) Amlodipine Besylate (Amlodipine Besylate 2.5 Mg Tablet) 2.5 mg PO DAILY [facility]; Protocol Last Admin: 06/24/21 08:08 Dose: 2.5 mg Documented by: Aspirin (Aspirin Enteric Coated 81 Mg Tablet.) 81 mg PO DAILY@1700 [facility] Last Admin: 06/23/21 16:50 Dose: 81 mg Documented by: Atorvastatin Calcium (Atorvastatin Calcium 80 Mg Tablet) 80 mg PO DAILY@1700 [facility] Last Admin: 06/23/21 16:51 Dose: 80 mg Documented by: Clopidogrel Bisulfate (Clopidogrel Bisulfate 75 Mg Tablet) 75 mg PO DAILY [facility] Last Admin: 06/24/21 08:09 Dose: 75 mg Documented by: Dextrose (Dextrose 50 % 25 Gm/50 Ml Vial) 25 gm IVPUSH Q15M PRN; Protocol PRN Reason: per Hypoglycemia Standing Ord. Dextrose (Dextrose 50 % 25 Gm/50 Ml Vial) 25 gm IVPUSH Q15M PRN; Protocol PRN Reason: per Hypoglycemia Standing Ord. Gabapentin (Gabapentin 100 Mg Capsule) 100 mg PO BID [facility] Last Admin: 06/24/21 08:08 Dose: 100 mg Documented by: Glucose (Glucose Gel 15 Gm Gel..Gram.) 15 gm PO Q15M PRN; Protocol PRN Reason: per Hypoglycemia Standing Ord. Glucose (Glucose Gel 15 Gm Gel..Gram.) 15 gm PO Q15M PRN; Protocol PRN Reason: per Hypoglycemia Standing Ord. Heparin Sodium (Porcine) (Heparin Sodium,Porcine 5,000 Unit/Ml Vial) 5,000 unit SUBCUT Q12H [facility] Hydralazine HCl (Hydralazine Hcl 25 Mg Tablet) 25 mg PO BID [facility]; Protocol Last Admin: 06/24/21 08:09 Dose: 25 mg Documented by: Furosemide 200 mg/ Sodium (Chloride) 100 mls @ 2.5 mls/hr IVCONT .Q24H [facility] Last Admin: 06/23/21 13:24 Dose: 5 mg/hr, 2.5 mls/hr Documented by: Insulin Human Lispro (Insulin Lispro 100 Unit/Ml 3 Ml Vial) 0 unit SUBCUT QIDACHS [facility]; Protocol Last Admin: 06/24/21 08:08 Dose: 2 unit Documented by: Insulin Human Lispro (Insulin Lispro 100 Unit/Ml 3 Ml Vial) 0 unit SUBCUT QIDACHS [facility]; Protocol Last Admin: 06/24/21 07:18 Dose: Not Given Documented by: Melatonin (Melatonin 3 Mg Tablet) 6 mg PO BEDTIME PRN PRN Reason: Insomnia Nitroglycerin (Nitroglycerin 0.4 Mg Tab.Subl) 0.4 mg SUBLINGUAL Q5M PRN PRN Reason: Chest Pain Senna (Sennosides 8.6 Mg Tablet) 17.2 mg PO BEDTIME PRN PRN Reason: Constipation Sertraline HCl (Sertraline Hcl 50 Mg Tablet) 50 mg PO DAILY [facility] Last Admin: 06/24/21 08:09 Dose: 50 mg Documented by: Sodium Bicarbonate (Sodium Bicarbonate 650 Mg Tablet) 650 mg PO QID [facility] Last Admin: 06/24/21 08:09 Dose: 650 mg Documented by: Sodium Chloride (0.9 % Sodium Chloride Flush 3 Ml Syringe) 3 ml IVFLUSH QSHIFT [facility] Last Admin: 06/24/21 08:08 Dose: Not Given Documented by: Trazodone HCl (Trazodone Hcl 50 Mg Tablet) 50 mg PO BEDTIME [facility] Last Admin: 06/23/21 21:08 Dose: 50 mg Documented by: Time Spent With Patient Time: Total time spent is greater than 50% in coordination of care (as documented) at patient's floor/unit and/or counseling patient: Time with patient: 15 - 24 minutes Progress Note: Quality Stroke Does the patient have a stroke diagnosis?: No Procedures Date of Service Date of Service: 06/24/21
--- NOTE | 2021-06-24 12:09 | MHC.CM.PN ---
Patient has been medically cleared for dc to home today with services. CM checked with Daughter/Adelita to see if the services Patient was receiving includes a RN. Adelita indicated that Patient does not have a visiting Nurse. With Adelita's permission, CM made a referral to [facility] ([facility]), who has been made aware of today's dc. Last IMM addressed on 06/22/21.Adelita indicated that she will pick her Mother up at 4PM and CM relayed this to RN.
--- NOTE | 2021-06-24 13:49 | PM.PNNEP ---
Subjective Subjective Date of Service: 06/26/21 Principal diagnosis: Decompensated congestive heart failure Interval history: Events noted Physical Exam Vital Signs: Vital Signs: Last Vital Signs Temp 98.4 F 06/24/21 11:16 Pulse 70 06/24/21 11:16 Resp 18 06/24/21 11:16 BP 135/50 L 06/24/21 11:16 Pulse Ox 97 06/24/21 11:16 Body Mass Index 39.4 Neck: Neck: Yes supple Resp: Auscultation: rales Cardio: Heart sounds: no gallops and no rubs GI: Auscultation: normal bowel sounds Neuro: Motor exam (neuro): no asterixis Objective Data Labs CBC & Chem 7: 06/24/21 05:40 06/24/21 09:09 Labs: Laboratory Results - last 24 hr 06/23/21 06/23/21 06/23/21 13:49 13:49 16:11 WBC RBC Hgb Hct MCV MCH MCHC RDW Plt Count MPV Immature Gran % (Auto) Neut % (Auto) Lymph % (Auto) [place] % (Auto) Eos % (Auto) Baso % (Auto) Lymph # (Auto) [place] # (Auto) Eos # (Auto) Baso # (Auto) Abs Immat Gran (auto) Absolute Neuts (auto) Absolute Nucleated RBC Nucleated RBC % (auto) Sodium 138 Potassium 5.5 H Chloride 102 Carbon Dioxide 27 Anion Gap 15 BUN 47 H Creatinine 2.80 H Estim Creat Clear Calc 17.9 Estimated GFR 17 POC Glucose 251 H Random Glucose Fasting Glucose 315 H Calcium 8.3 L Total Bilirubin 0.3 AST 12 ALT 13 Alkaline Phosphatase 178 H D B-Natriuretic Peptide 1103 H Total Protein 6.9 Albumin 3.4 L 06/23/21 06/24/21 06/24/21 20:27 05:40 07:14 WBC 9.0 RBC 3.25 L Hgb 8.4 L Hct 27.6 L MCV 84.9 MCH 25.8 L MCHC 30.4 L RDW 13.8 Plt Count 255 MPV 10.7 Immature Gran % (Auto) 0.4 Neut % (Auto) 71.3 Lymph % (Auto) 16.3 L [place] % (Auto) 7.5 Eos % (Auto) 4.3 H Baso % (Auto) 0.2 Lymph # (Auto) 1.5 [place] # (Auto) 0.7 Eos # (Auto) 0.4 Baso # (Auto) 0.0 Abs Immat Gran (auto) 0.04 H Absolute Neuts (auto) 6.4 Absolute Nucleated RBC 0.000 Nucleated RBC % (auto) 0.0 Sodium Potassium Chloride Carbon Dioxide Anion Gap BUN Creatinine Estim Creat Clear Calc Estimated GFR POC Glucose 242 H 200 H Random Glucose Fasting Glucose Calcium Total Bilirubin AST ALT Alkaline Phosphatase B-Natriuretic Peptide Total Protein Albumin 06/24/21 06/24/21 06/24/21 09:09 10:26 10:49 WBC RBC Hgb Hct MCV MCH MCHC RDW Plt Count MPV Immature Gran % (Auto) Neut % (Auto) Lymph % (Auto) [place] % (Auto) Eos % (Auto) Baso % (Auto) Lymph # (Auto) [place] # (Auto) Eos # (Auto) Baso # (Auto) Abs Immat Gran (auto) Absolute Neuts (auto) Absolute Nucleated RBC Nucleated RBC % (auto) Sodium 139 Potassium 4.4 Chloride 101 Carbon Dioxide 27 Anion Gap 15 BUN 48 H Creatinine 2.69 H Estim Creat Clear Calc 18.5 Estimated GFR 18 POC Glucose 213 H Random Glucose 234 H Fasting Glucose Calcium 8.4 Total Bilirubin AST ALT Alkaline Phosphatase B-Natriuretic Peptide 495 H Total Protein Albumin Procedures Date of Service Date of Service: 06/24/21 Assessment & Plan Assessment and plan (1) GIL (acute kidney injury): Status: Acute Assessment and Plan: GIL superimposed on KD Anemia Assessment and Plan: Renal fx close to baseline Keep O > I Supportive care No indication for dialysis Shall arrange follow up with upon discharge Time Spent With Patient Time: Total time spent is greater than 50% in coordination of care (as documented) at patient's floor/unit and/or counseling patient: Time with patient: 15 - 24 minutes Progress Note: Quality Stroke Does the patient have a stroke diagnosis?: No
--- NOTE | 2021-06-24 15:35 | CONS_ITS ---
DATE OF SERVICE: 06/23/2021 REASON FOR CONSULTATION: I was called to see this patient to assist in the management of hyperkalemia. HISTORY OF PRESENT ILLNESS: To summarize, Debbie is well known to us. She is a 66-year-old woman with history of long-standing hypertension and diabetes mellitus with stage 4 chronic kidney disease. She comes in because of shortness of breath due to congestive heart failure. Her potassium has been presently high in the mid 5 and hence this consultation. Her baseline creatinine was around 2.4 mg/dL. PAST MEDICAL HISTORY: Ongoing medical problems include history of stage 4 chronic kidney disease, congestive heart failure, diabetes mellitus, hypertension, GERD, cardiomyopathy, and anemia. FAMILY HISTORY: Not significant for this admission. PAST SURGICAL HISTORY: Includes hysterectomy, EGD, and colonoscopies. SOCIAL HISTORY: Lives with family. No history of any smoking or alcohol abuse. ALLERGIES: SHE IS ALLERGIC TO LATEX. MEDICATIONS: All the current medications were reviewed. She is on Lasix IV and responding well. REVIEW OF SYSTEMS: Positive for shortness of breath. No chest pain, nausea, or vomiting. No abdominal pain or constipation. No urinary symptoms. All other systems were reviewed. PHYSICAL EXAMINATION: GENERAL: Debbie is a 66-year-old woman. She appears comfortable, not in any distress. NECK: Supple. No JVD. LUNGS: Bibasilar crackles. HEART: S1 and S2 heard. No gallop. ABDOMEN: Soft and nontender. EXTREMITIES: With dependent edema. She has [id number] on the right. VITAL SIGNS: Blood pressure was 160/70, pulse 71, and temperature 97.8. LABORATORY DATA: Sodium 137, potassium 5.4, BUN 47, creatinine 2.71, and calcium 8.3. Hemoglobin 8.4 and platelets 255. Bicarb of 24. IMAGING DATA: Chest x-ray done on the showed evidence of cardiomegaly, mild pulmonary vascular congestion. IMPRESSION: 1. Mild hyperkalemia in the setting of stage 4 chronic kidney disease. 2. Hyperkalemia is most likely due to excess potassium intake versus decreased potassium excretion in the setting of advanced renal failure. 3. Debbie did have acute kidney injury. About 10 days ago with the peak creatinine of 4.08 which has gradually improved over the last 10 days down to 2.71. She probably has impaired potassium excretion in the setting of renal failure. RECOMMENDATIONS: My recommendation is to keep her on a 2-g potassium restriction, use Lokelma 5 g p.r.n. to maintain potassium less than 5.2 mmol/L. We will continue with diuresing in view of the heart failure and keep her on negative fluid balance. There is no acute indication for dialysis yet. We will follow along with the team. Nahum Trevizo MD BPA/MODL / [phone]
== END 2021-06-24 15:54 | disposition home health service (06) | DRG 291 ==
LOC: HO.ED 23:06 → HO.IMC 23:54
PROVIDERS: Family Medicine; Hospitalist; Admitting Provider Hospitalist; Emergency Provider Emergency Medicine; PCP Internal Medicine; Visit Provider Physician Assistant Medical
DX: I13.0 Hypertensive heart and chronic kidney disease with heart failure and stage 1 through stage 4 chronic kidney disease, or unspecified chronic kidney disease (principal); I50.33 Acute on chronic diastolic (congestive) heart failure; J96.01 Acute respiratory failure with hypoxia; N18.4 Chronic kidney disease, stage 4 (severe); E78.5 Hyperlipidemia, unspecified; E11.22 Type 2 diabetes mellitus with diabetic chronic kidney disease; E11.649 Type 2 diabetes mellitus with hypoglycemia without coma; K21.9 Gastro-esophageal reflux disease without esophagitis; Z20.822 Contact with and (suspected) exposure to COVID-19; Z79.4 Long term (current) use of insulin; Z89.612 Acquired absence of left leg above knee; Z86.73 Personal history of transient ischemic attack (TIA), and cerebral infarction without residual deficits; Z79.02 Long term (current) use of antithrombotics/antiplatelets; Z79.82 Long term (current) use of aspirin; Z79.899 Other long term (current) drug therapy
CPT/HCPCS: 36415; 71045; 78580; 80048; 80053; 82947; 83735; 83880; 84484; 85025; 85027; 85379; 87635; 93005; 93971; 99285; A9540; J1650; J1940

== ENCOUNTER 2021-06-29 12:15 | Outpatient (REF) | payer MEDICARE, SELFPAY ==
[2021-06-29 14:17] LABS: Baso%MD 0.2 %; Eos%MD 5.1 %; Hematocrit 27.8 % (37-47); Hemoglobin 8.4 g/dl (12.0-16.0); IG%MD 0.5 %; Lymph%MD 21.3 %; Mean Corpuscular HGB Conc 30.2 g/dl (31.0-35.0); Mean Corpuscular Hemoglobin 25.8 pg (27.0-33.0); Mean Corpuscular Volume 85.5 fL (80-98); Mean Platelet Volume 10.5 fL (9.4-12.3); Mono%MD 5.9 %; Platelet Count 262 X10*3/uL (160-400); Red Blood Count 3.25 X10*6/uL (4.20-5.50); White Blood Count 9.9 X10*3/uL (4.8-10.8)
[2021-06-29 14:21] LABS: INTERNATIONAL NORM RATIO 1.2 (0.9-1.1); Prothrombin Time 13.5 SEC (9.9-13.0)
[2021-06-29 14:43] LABS: B Type Natriuretic Peptide 681 pg/mL (<100)
[2021-06-29 14:54] LABS: Eosinophils Absolute Manual 0.9 X10*3/UL (0.0-0.8); Eosinophils Percent Manual 9 % (0-4); Lymphocytes Absolute Manual 2.3 X10*3/uL (0.6-4.8); Lymphocytes Percent Manual 23 % (20-40); Monocytes Absolute Manual 0.4 X10*3/uL (0.0-1.2); Monocytes Percent Manual 4 % (2-11); Neutrophils Percent Manual 64 % (45-73)
[2021-06-29 14:55] LABS: Hypochromasia 2+ (15-30) /OIF; Platelet Estimate NORMAL (NORMAL); Platelet Morphology Comment NORMAL; RBC Morphology NOTED
[2021-06-29 15:08] LABS: Band Neutrophils Percent 0 % (3-5); Neutrophils Absolute Manual 6.3 X10*3/uL (2.2-7.9)
== END 2021-06-29 12:16 | disposition home or self-care (01) ==
LOC: HO.LAB 12:15
PROVIDERS: PCP Internal Medicine; Visit Provider Nurse Practitioner Family
DX: I13.0 Hypertensive heart and chronic kidney disease with heart failure and stage 1 through stage 4 chronic kidney disease, or unspecified chronic kidney disease (principal); N18.30 Chronic kidney disease, stage 3 unspecified; I50.9 Heart failure, unspecified; I42.8 Other cardiomyopathies
CPT/HCPCS: 36415; 83880; 85007; 85027; 85610; 99212

== ENCOUNTER 2021-07-05 10:07 | Emergency (ER) | payer OTHER, SELFPAY ==
--- NOTE | ~2021-07-05 | XR_ITS ---
EXAMINATION: CHEST X-RAY AND LEFT SHOULDER X-RAY CLINICAL INFORMATION: Weakness and fever. Left shoulder pain. COMPARISON: Previous chest x-ray was recent June 2021 TECHNIQUE: 2 views of the chest and 4 views of the left shoulder FINDINGS: Left shoulder: Bone alignment is normal. No fracture or dislocation is seen. There is arthritis at the acromioclavicular joint with joint space narrowing and osteophyte formation. There is undersurface acromial osteophyte. Glenohumeral joint is normal. Soft tissues are normal. CHEST: The cardiac silhouette is enlarged but stable. There are increased central bronchovascular markings. There is scarring or subsegmental atelectasis in the left midlung. The lungs are otherwise clear. There is no pleural effusion. There are degenerative changes of the spine. XR/XR shoulder LT min 2V IMPRESSION: Chest: Stable enlargement of cardiac silhouette. Increased central bronchovascular markings questionable for airways disease versus mild pulmonary venous congestion. Left shoulder: Arthritis.
--- NOTE | ~2021-07-05 | XR_ITS ---
EXAMINATION: CHEST X-RAY AND LEFT SHOULDER X-RAY CLINICAL INFORMATION: Weakness and fever. Left shoulder pain. COMPARISON: Previous chest x-ray was recent June 2021 TECHNIQUE: 2 views of the chest and 4 views of the left shoulder FINDINGS: Left shoulder: Bone alignment is normal. No fracture or dislocation is seen. There is arthritis at the acromioclavicular joint with joint space narrowing and osteophyte formation. There is undersurface acromial osteophyte. Glenohumeral joint is normal. Soft tissues are normal. CHEST: The cardiac silhouette is enlarged but stable. There are increased central bronchovascular markings. There is scarring or subsegmental atelectasis in the left midlung. The lungs are otherwise clear. There is no pleural effusion. There are degenerative changes of the spine. XR/XR chest 2V IMPRESSION: Chest: Stable enlargement of cardiac silhouette. Increased central bronchovascular markings questionable for airways disease versus mild pulmonary venous congestion. Left shoulder: Arthritis.
--- NOTE | 2021-07-05 10:18 | ECG_ITS ---
Test Reason : ARM PAIN Blood Pressure : / mmHG Vent. Rate : 069 BPM Atrial Rate : 069 BPM P-R Int : 168 ms QRS Dur : 124 ms QT Int : 466 ms P-R-T Axes : 037 -11 193 degrees QTc Int : 499 ms Normal sinus rhythm Left bundle branch block Abnormal ECG When compared with ECG of 20-JUN-2021 22:19, Left bundle branch block is now Present Criteria for Septal infarct are no longer Present Referred By: Margo Aayla Electronically Signed By:KALANI TOLEDO
[2021-07-05 10:22] VITALS: BP 125/64; BP 142/74; PULSE 68; PULSE 71; RESP 20; TEMP 37; O2SAT 96; O2SAT 97; BMI 41.8
--- NOTE | 2021-07-05 10:24 | ED.GENADULT ---
HPI - General Adult General Chief complaint: Extremity Injury, Upper Stated complaint: L ARM PAIN Time Seen by Provider: 07/05/21 10:18 Source: patient Mode of arrival: ambulatory Limitations: no limitations History of Present Illness HPI narrative: 66 yo feamle pmhx CKD, CHF, CVA, and DM presents to the ED via EMS for three days of progressively worsening left arm pain, malaise and nausea X3 days. She states she has been feeling tired and like she is getting sick for the past few days. She states that her pain starts at her shoulder, and goes down to her fingertips, states that it is a stabbing pain. She adds that she was recently diagnosed with a stroke, and she was recently discharged from the hospital. She denies chest pain, shortness of breath, fevers, chills, vomiting, diarrhea, changes in bowel habits, weakness. Onset (ago): day(s) (3) Location: upper extremity (left ) Radiation: other (shoulder to fingertips ) Severity: severe Severity scale (1-10): 10 Quality: stabbing Pain Consistency: constant Relieving factors: none Exacerbating factors: none Associated symptoms: nausea/vomiting and other (malaise) Treatments prior to arrival: none Related Data Home Medications Medication Instructions Recorded Confirmed amlodipine 2.5 mg tablet 2.5 mg PO QAM 06/20/21 06/20/21 aspirin 81 mg tablet,delayed 81 mg PO QPM 06/20/21 06/20/21 release atorvastatin 80 mg tablet 80 mg PO QPM 06/20/21 06/20/21 calcium carbonate 600 mg (1,500 600 tab PO BID 06/20/21 06/20/21 mg)-vitamin D3 400 unit tablet clopidogrel 75 mg tablet 75 mg PO QAM 06/20/21 06/20/21 gabapentin 100 mg capsule 100 mg PO BID 06/20/21 06/21/21 insulin aspart U-100 100 unit/mL 8 - 24 unit SUBCUT TID 06/20/21 06/20/21 (3 mL) subcutaneous pen (Novolog Flexpen U-100 Insulin aspart) insulin glargine 100 unit/mL (3 64 unit SUBCUT DAILY 06/20/21 06/20/21 mL) subcutaneous pen (Lantus Solostar U-100 Insulin) magnesium oxide 400 mg (241.3 mg 400 mg PO BID 06/20/21 06/20/21 magnesium) tablet sertraline 50 mg tablet 50 mg PO DAILY 06/20/21 06/20/21 sodium bicarbonate 650 mg tablet 650 mg PO QID 06/20/21 06/20/21 trazodone 50 mg tablet 50 mg PO BEDTIME 06/20/21 06/20/21 carvedilol 3.125 mg tablet 3.125 mg PO BID 06/29/21 hydralazine 10 mg tablet 10 mg PO BID 06/29/21 metoclopramide HCl 5 mg tablet 5 mg PO QIDACHS 06/29/21 Previous Rx's Medication Instructions Recorded furosemide 40 mg tablet (Lasix) 40 mg PO BID #60 tab 06/24/21 cyclobenzaprine 10 mg tablet 10 mg PO BEDTIME #10 tab 07/05/21 lidocaine 5 % topical patch 1 patch TOPICAL DAILY #15 ea 07/05/21 (Lidoderm) oxycodone 5 mg capsule 5 mg PO Q8H PRN #8 cap 07/05/21 Allergies Allergy/AdvReac Type Severity Reaction Status Date / Time latex [LATEX] Allergy Intermediate ITCHY Verified 06/29/21 13:08 Review of Systems Review of Systems: Yes all other systems are reviewed and are negative Constitutional: Constitutional: Reports no additional constitutional complaints, Denies body ache(s), Denies chills, Denies fever(s), Denies headache(s), Reports malaise and Denies weakness Eyes: Eyes: Reports no additional eye complaints and Denies change in vision ENT: Reports system reviewed and no additional complaints, except as documented, Denies dizziness, Denies headache(s), Denies nasal congestion, Denies nasal discharge and Denies neck pain Cardiovascular: Cardiovascular: Reports no additional cardiovascular complaints, Denies chest pain, Denies leg edema and Denies dyspnea Respiratory: Respiratory: Reports no additional respiratory complaints, Denies cough and Denies dyspnea Gastrointestinal: Gastrointestinal: Reports no additional gastrointestinal complaints, Denies abdominal pain, Denies diarrhea, Reports nausea and Denies vomiting Genitourinary: Genitourinary: Reports no additional female genitourinary complaints and Denies urinary incontinence Musculoskeletal: Musculoskeletal: Reports no additional musculoskeletal complaints, Denies back pain, Reports arthralgias (left shoulder pain), Denies joint swelling, Denies neck pain, Denies numbness and Denies tingling Integumentary/Breasts: Skin/Breast: Reports system reviewed and no additional complaints, except as docu and Denies rash Neurologic: Reports system reviewed and no additional complaints, except as documented, Denies Abnormal speech present, Denies dizziness, Denies headache(s), Denies numbness, Denies tingling and Denies weakness PMFSH Past Medical History Attestation statement: The following information was validated with the patient. Source: old records reviewed and nursing notes reviewed Medical History Acute respiratory failure with hypoxia Anemia Blister of finger without infection Cholecystectomy planned CKD (chronic kidney disease) CKD (chronic kidney disease), stage IV Congestive heart failure Diabetes Diabetes mellitus Elevated d-dimer Essential hypertension Gastroparesis GERD (gastroesophageal reflux disease) Hand pain Hernia HLD (hyperlipidemia) HTN (hypertension) Hypomagnesemia Irritable bowel syndrome with diarrhea Lightheadedness Low blood pressure Non-ST elevated myocardial infarction Nonischemic cardiomyopathy Other and unspecified hyperlipidemia Pharyngoesophageal dysphagia Type 2 diabetes mellitus with unspecified complications Surgical History H/O: hysterectomy History of esophagogastroduodenoscopy (EGD) Hx of colonoscopy Hx of eye surgery Family History Family History Father Lung cancer Mother Diabetes HTN (hypertension) Heart disease Sister Diabetes Heart disease Brother Heart disease Son Diabetes Daughter Diabetes Social History Social History Household Members: Children Household Members Other:: Daughter Housing: House Do you presently have visiting nurse or other home services: No Unable to assess alcohol history related to: Unknown Alcohol intake: never Patient Tobacco Use Status: Never used Tobacco Use of substances other than those prescribed or required for medical reasons: No Advance Directives: No Advance Directives Information Provided: No service: No Current occupational status: disabled Physical Exam Vital Signs: Vital Signs: Last Vital Signs Temp 98.6 F 07/05/21 10:22 Pulse 65 07/05/21 16:03 Resp 20 07/05/21 16:03 BP 118/46 L 07/05/21 16:03 Pulse Ox 95 07/05/21 16:03 Body Mass Index 41.8 Const: General: cooperative, healthy appearing, comfortable and no acute distress Orientation/consciousness: patient oriented x3 Limitations: no limitations HENMT: Head: Yes normal to inspection Ears: hearing grossly normal bilaterally General nose exam: Normal external nose present Face and sinus: Yes normal facial exam Mouth: Normal oral and palatal mucosa present Throat: Yes posterior oropharynx normal Eyes: General: appearance normal, both eyes and all related structures Pupils: Equal, round and reactive pupils present Neck: Neck: Yes normal visual inspection Chest: Chest palpation & inspection: normal inspection of the chest Resp: Effort & Inspection: normal respiratory effort Auscultation: clear to auscultation bilaterally Cardio: Rate: regular rate Rhythm: regular rhythm Peripheral pulses: Peripheral pulses 2+ throughout GI: Inspection: Yes normal to inspection Palpation (GI): Soft to palpation and nontender Auscultation: normal bowel sounds Back/Spine/Pelvis: Thoracic/Lumbar Spine: thoracic and lumbar spine normal to inspection Skin: General skin exam: no rashes or lesions noted Neuro: General: patient oriented x3, no focal motor deficits and normal sensation to monofilament Cranial nerves: Yes Equal, round and reactive pupils present Cognition (Neuro): normal cognition Speech: No Abnormal speech present Gait exam (Neuro): Normal gait present Motor exam (neuro): 5/5 motor strength present throughout Extrem: Other: 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 Left BKA noted. General: No normal to inspection, Yes capillary refill normal, Yes normal exam except as noted, Yes no clubbing, cyanosis or edema, Yes no pedal edema, Yes no calf tenderness and No calf tenderness Right upper extremity: normal to inspection, full ROM (painful ), normal capillary refill and shoulder/upper arm Details: tenderness and normal ROM; No no cyanosis, no edema and joint enlargement noted Right lower extremity: normal to inspection, full ROM and normal capillary refill Left lower extremity: No abnormal to inspection (BKA) Course Course Course Narrative: 66 yo feamle pmhx CKD, CHF, CVA, and DM presents to the ED via EMS for three days of progressively worsening left arm pain, malaise and nausea X3 days. She was recently discharged from hospital on June 26 for TIA, which she received tPA for. On her admission she was noted to be weak to the left-hand side, however upon discharge, weakness had resolved. Today she denies weakness or left hand side, however she states she is having pain that started as shoulder and radiates into her fingertips. She states she has not fallen, she has had no trauma to the area. She also reports nausea, and malaise at have been going on for 3 days. She states she feels like she is getting sick. Upon exam there is good pulses, and bilateral cap refill is less than 2 seconds. She has full range of motion, but she states she is having painful range of motion to her left upper extremity. Her skin felt warm however she was afebrile. There is no signs of infection, no overlying calor, or erythema. Unlikely a septic joint.She does have multiple amputated distal fingers to bilateral hands. And she does have a [id number] amputation to the left hand side. Medical Decision Making MDM Narrative Medical decision making narrative: Based off of the patient's vague history, and physical basic labs will be done to rule out infection. An EKG, and troponin will be done to rule out ACS. Blood cultures, UA and a lactic will be obtained. Will also order a chest x-ray, and an x-ray of the left shoulder to rule out fracture, and infection. Chest x-ray questionable for airway disease versus pulmonary venous congestion on exam lungs are clear patient is saturating 96% on RA she is afebrile, and is not complaing of SOB, chills, CP or fevers at home not concerned for PNA. She has baseline CHF, which would account for the CXR findings however her BNP is not strikingly elevated today it is 365. Clinically she does not appear in acute failure. X-ray of the left shoulder shows arthritis, likely what is causing her pain. First trop 22.6 a second trop will be ordered for 1415. To note, patient's troponin has been elevated in the past on various occasions the last 2 times have been on 06/20/2021, 27.8, and on 06/21/2021 her trop was 28.8. This is likely her baseline patient also has CKD which could contribute to the elevated trop. Patient does not meet SIRS, her lactic is not elevated, she does not have a white count, she is not tachycardic or tachypneic, and she is not febrile. No need for antibiotics. BUN 40 Cr 3.03, both of these seem to be elevated, however it is close to her baseline no drastic changes. Her K is 5.5, she has been this high in the past she will be given 1 dose of Kayexalate. Patient reports pain she will be given PO Tylenol, 5mg oxycodone with improvement Second trop was drawn at the wrong time will order another for 1415. 1509- third trop 22, again likely patients baseline, patients CKD could also contribute to the elevated tropnin. There was not a >50% increase, unlikes this is ACS. Patient is safe for discharge home her left shoulder pain is likely secondary to arthritis as seen on xray. Medical Records Medical records reviewed: Yes I reviewed the patient's medical records. Lab Data Lab results reviewed: Yes I reviewed the patient's lab results. Result diagrams: 07/05/21 11:13 07/05/21 12:30 Labs: Lab Results 07/05/21 07/05/21 07/05/21 Range/Units 11:13 11:13 11:13 WBC 9.0 (4.8-10.8) X10*3/uL RBC 3.57 L (4.20-5.50) X10*6/uL Hgb 9.2 L (12.0-16.0) g/dl Hct 30.1 L (37-47) % MCV 84.3 (80-98) fL MCH 25.8 L (27.0-33.0) pg MCHC 30.6 L (31.0-35.0) g/dl RDW 14.0 (11.0-16.0) % Plt Count 262 (160-400) X10*3/uL MPV 10.8 (9.4-12.3) fL Immature Gran % (Auto) 0.2 (0.0-0.4) % Neut % (Auto) 63.4 (45-73) % Lymph % (Auto) 23.1 (20-40) % [place] % (Auto) 7.0 (2-11) % Eos % (Auto) 6.0 H (0-4) % Baso % (Auto) 0.3 (0-2) % Lymph # (Auto) 2.1 (1.2-4.9) X10*3/uL [place] # (Auto) 0.6 (0.1-1.2) X10*3/uL Eos # (Auto) 0.5 H (0.0-0.4) X10*3/uL Baso # (Auto) 0.0 (0.0-0.2) X10*3/uL Abs Immat Gran (auto) 0.02 (0.00-0.03) X10*3/uL Absolute Neuts (auto) 5.7 (2.0-8.3) X10*3/uL Absolute Nucleated RBC 0.000 (0.0-0.012) X10*3/uL Nucleated RBC % (auto) 0.0 (0.0-0.2) /100WBC Sodium (135-145) mmol/L Potassium (3.3-5.1) mmol/L Chloride (96-108) mmol/L Carbon Dioxide (22-29) mmol/L Anion Gap (12-20) BUN (9-16) mg/dL Creatinine (0.5-1.4) mg/dL Estim Creat Clear Calc Estimated GFR Random Glucose (60-115) mg/dL Lactic Acid 1.3 (0.5-2.0) mmol/L Calcium (8.4-10.2) mg/dL Magnesium (1.6-2.6) mg/dL Total Bilirubin (0.0-1.0) mg/dL Direct Bilirubin (0.0-0.5) mg/dL AST (5-31) U/L ALT (0-31) U/L Alkaline Phosphatase (39-117) U/L Troponin I High Sens 22.6 H* (<3.5-17.0) ng/L B-Natriuretic Peptide (<100) pg/mL Total Protein (6.5-8.0) g/dL Albumin (3.5-5.0) g/dL Lipase (8-78) U/L Urine Color Urine Appearance Urine pH (5.0-8.0) Ur Specific [place] (1.005-1.025) Urine Protein (NEG-TRACE) MG/DL Urine Glucose (UA) (NEG) MG/DL Urine Ketones (NEG) MG/DL Urine Blood (NEG) Urine Nitrite (NEG) Ur Leukocyte Esterase (NEG) Urine RBC (0) /HPF Urine WBC (0-4) /HPF Ur Squamous Epith Cells /LPF Amorphous Sediment /LPF Urine Bacteria /LPF Urine Mucus /LPF COVID-19 (LUCIUS) (Negative) COVID-19 Clin Com 07/05/21 07/05/21 07/05/21 Range/Units 11:13 11:14 12:30 WBC (4.8-10.8) X10*3/uL RBC (4.20-5.50) X10*6/uL Hgb (12.0-16.0) g/dl Hct (37-47) % MCV (80-98) fL MCH (27.0-33.0) pg MCHC (31.0-35.0) g/dl RDW (11.0-16.0) % Plt Count (160-400) X10*3/uL MPV (9.4-12.3) fL Immature Gran % (Auto) (0.0-0.4) % Neut % (Auto) (45-73) % Lymph % (Auto) (20-40) % [place] % (Auto) (2-11) % Eos % (Auto) (0-4) % Baso % (Auto) (0-2) % Lymph # (Auto) (1.2-4.9) X10*3/uL [place] # (Auto) (0.1-1.2) X10*3/uL Eos # (Auto) (0.0-0.4) X10*3/uL Baso # (Auto) (0.0-0.2) X10*3/uL Abs Immat Gran (auto) (0.00-0.03) X10*3/uL Absolute Neuts (auto) (2.0-8.3) X10*3/uL Absolute Nucleated RBC (0.0-0.012) X10*3/uL Nucleated RBC % (auto) (0.0-0.2) /100WBC Sodium 141 (135-145) mmol/L Potassium 5.5 H D (3.3-5.1) mmol/L Chloride 106 (96-108) mmol/L Carbon Dioxide 28 (22-29) mmol/L Anion Gap 13 (12-20) BUN 40 H (9-16) mg/dL Creatinine 3.03 H (0.5-1.4) mg/dL Estim Creat Clear Calc 17.0 Estimated GFR 15 Random Glucose 93 (60-115) mg/dL Lactic Acid (0.5-2.0) mmol/L Calcium 8.5 (8.4-10.2) mg/dL Magnesium 1.7 (1.6-2.6) mg/dL Total Bilirubin < 0.2 (0.0-1.0) mg/dL Direct Bilirubin < 0.2 (0.0-0.5) mg/dL AST 18 D (5-31) U/L ALT 13 (0-31) U/L Alkaline Phosphatase 143 H (39-117) U/L Troponin I High Sens (<3.5-17.0) ng/L B-Natriuretic Peptide 365 H (<100) pg/mL Total Protein 7.4 (6.5-8.0) g/dL Albumin 3.5 (3.5-5.0) g/dL Lipase 16 (8-78) U/L Urine Color Urine Appearance Urine pH (5.0-8.0) Ur Specific [place] (1.005-1.025) Urine Protein (NEG-TRACE) MG/DL Urine Glucose (UA) (NEG) MG/DL Urine Ketones (NEG) MG/DL Urine Blood (NEG) Urine Nitrite (NEG) Ur Leukocyte Esterase (NEG) Urine RBC (0) /HPF Urine WBC (0-4) /HPF Ur Squamous Epith Cells /LPF Amorphous Sediment /LPF Urine Bacteria /LPF Urine Mucus /LPF COVID-19 (LUCIUS) Negative (Negative) COVID-19 Clin Com See Note 07/05/21 07/05/21 07/05/21 Range/Units 12:30 13:46 14:28 WBC (4.8-10.8) X10*3/uL RBC (4.20-5.50) X10*6/uL Hgb (12.0-16.0) g/dl Hct (37-47) % MCV (80-98) fL MCH (27.0-33.0) pg MCHC (31.0-35.0) g/dl RDW (11.0-16.0) % Plt Count (160-400) X10*3/uL MPV (9.4-12.3) fL Immature Gran % (Auto) (0.0-0.4) % Neut % (Auto) (45-73) % Lymph % (Auto) (20-40) % [place] % (Auto) (2-11) % Eos % (Auto) (0-4) % Baso % (Auto) (0-2) % Lymph # (Auto) (1.2-4.9) X10*3/uL [place] # (Auto) (0.1-1.2) X10*3/uL Eos # (Auto) (0.0-0.4) X10*3/uL Baso # (Auto) (0.0-0.2) X10*3/uL Abs Immat Gran (auto) (0.00-0.03) X10*3/uL Absolute Neuts (auto) (2.0-8.3) X10*3/uL Absolute Nucleated RBC (0.0-0.012) X10*3/uL Nucleated RBC % (auto) (0.0-0.2) /100WBC Sodium (135-145) mmol/L Potassium (3.3-5.1) mmol/L Chloride (96-108) mmol/L Carbon Dioxide (22-29) mmol/L Anion Gap (12-20) BUN (9-16) mg/dL Creatinine (0.5-1.4) mg/dL Estim Creat Clear Calc Estimated GFR Random Glucose (60-115) mg/dL Lactic Acid (0.5-2.0) mmol/L Calcium (8.4-10.2) mg/dL Magnesium (1.6-2.6) mg/dL Total Bilirubin (0.0-1.0) mg/dL Direct Bilirubin (0.0-0.5) mg/dL AST (5-31) U/L ALT (0-31) U/L Alkaline Phosphatase (39-117) U/L Troponin I High Sens 26.1 H* 22.2 H* (<3.5-17.0) ng/L B-Natriuretic Peptide (<100) pg/mL Total Protein (6.5-8.0) g/dL Albumin (3.5-5.0) g/dL Lipase (8-78) U/L Urine Color YELLOW Urine Appearance CLOUDY Urine pH 7.0 (5.0-8.0) Ur Specific [place] 1.015 (1.005-1.025) Urine Protein 2+ H (NEG-TRACE) MG/DL Urine Glucose (UA) 100 H (NEG) MG/DL Urine Ketones NEG (NEG) MG/DL Urine Blood TRACE (NEG) Urine Nitrite NEG (NEG) Ur Leukocyte Esterase TRACE H (NEG) Urine RBC 5-9 H (0) /HPF Urine WBC 5-9 H (0-4) /HPF Ur Squamous Epith Cells 3+ /LPF Amorphous Sediment 3+ /LPF Urine Bacteria 3+ /LPF Urine Mucus 3+ /LPF COVID-19 (LUCIUS) (Negative) COVID-19 Clin Com Imaging Data left shoulder/CXR: Attestation: I personally reviewed and interpreted this imaging study as follows: Radiologist's impression: [place] [id number] XRay Report Signed Patient: Debbie Guerra MR#: [id number] : 1955 Acct:[id number] Age/Sex: 66 / F ADM Date: 07/05/21 Loc: .ED Attending Dr: Ordering Physician: Margo Ayala NP Date of Service: 07/05/21 Procedure(s): XR chest 2V Accession Number(s): [id number] cc: Margo Ayala NP~ EXAMINATION: CHEST X-RAY AND LEFT SHOULDER X-RAY CLINICAL INFORMATION: Weakness and fever. Left shoulder pain.? COMPARISON: Previous chest x-ray was recent June 2021 TECHNIQUE: 2 views of the chest and 4 views of the left shoulder? FINDINGS: Left shoulder: Bone alignment is normal. No fracture or dislocation is seen. There is arthritis at the acromioclavicular joint with joint space narrowing and osteophyte formation. There is undersurface acromial osteophyte. Glenohumeral joint is normal. Soft tissues are normal. CHEST: The cardiac silhouette is enlarged but stable. There are increased central bronchovascular markings. There is scarring or subsegmental atelectasis in the left midlung. The lungs are otherwise clear. There is no pleural effusion. There are degenerative changes of the spine. XR/XR chest 2V IMPRESSION: Chest: Stable enlargement of cardiac silhouette. Increased central bronchovascular markings questionable for airways disease versus mild pulmonary venous congestion. ? Left shoulder: Arthritis. ECG Data Attestation: I personally reviewed and interpreted this ECG as follows: Prior ECG tracings: available for review Interpretation: Ventricular rate of 69, [place] normal, QRS normal, QT/QTC normal. EKG shows NSR with LBBB. There are RICKY, and inverted T waves, but no acute ischmia these changes were also noted when comparing to an EKG on 06/20/2021. Discharge Plan Discharge Clinical Impression: Arthritis of shoulder, Myalgia Patient Disposition: Home, Self-Care Instructions: Arthritis (ED) Additional Instructions: Your shoulder pain is likley arthritis which was seen on Xray Your covid test today was negative. Take tylenol as needed for pain Follow up with your PCP Return to the emergency department with new or worsening symptoms Prescriptions: New cyclobenzaprine 10 mg tablet 10 mg PO BEDTIME Qty: 10 RF: 0 lidocaine [Lidoderm] 5 % adhesive patch,medicated 1 patch topical DAILY Qty: 15 RF: 0 oxycodone 5 mg capsule 5 mg PO Q8H PRN (Reason: pain) Qty: 8 RF: 0 No Action atorvastatin 80 mg tablet 80 mg PO QPM RF: 0 trazodone 50 mg tablet 50 mg PO BEDTIME RF: 0 amlodipine 2.5 mg tablet 2.5 mg PO QAM RF: 0 clopidogrel 75 mg tablet 75 mg PO QAM RF: 0 aspirin 81 mg tablet,delayed release (DR/EC) 81 mg PO QPM RF: 0 magnesium oxide 400 mg (241.3 mg magnesium) tablet 400 mg PO BID RF: 0 sodium bicarbonate 650 mg tablet 650 mg PO QID RF: 0 gabapentin 100 mg capsule 100 mg PO BID RF: 0 sertraline 50 mg tablet 50 mg PO DAILY RF: 0 insulin aspart U-100 [Novolog Flexpen U-100 Insulin] 100 unit/mL (3 mL) insulin pen 8 - 24 unit subcut TID RF: 0 calcium carbonate-vitamin D3 600 mg(1,500mg) -400 unit tablet 600 tab PO BID RF: 0 Lantus Solostar U-100 Insulin 100 unit/mL (3 mL) insulin pen 64 unit subcut DAILY RF: 0 furosemide [Lasix] 40 mg tablet 40 mg PO BID Qty: 60 RF: 0 Referrals: Derick Amos MD [Physician] - 2 days Alexys Avila MD [Primary Care Provider] - 2 days Interventions: ED Discharge Assessment Last Done: 07/05/21 16:40 Discharge Date/Time: 07/05/21 16:40
[2021-07-05] MEDS: 0.9 % Sodium Chloride 1,000 ML 999 ML IV (11:17)
[2021-07-05 11:19] LABS: MANUAL DIFF FLAG NO
[2021-07-05 11:21] LABS: Basophils Percent Auto 0.3 % (0-2); Eosinophils Absolute Auto 0.5 X10*3/uL (0.0-0.4); Hematocrit 30.1 % (37-47); Hemoglobin 9.2 g/dl (12.0-16.0); Imm Gran Abs Auto 0.02 X10*3/uL (0.00-0.03); Imm Gran Pct Auto 0.2 % (0.0-0.4); Lymphocytes Absolute Auto 2.1 X10*3/uL (1.2-4.9); Lymphocytes Percent Auto 23.1 % (20-40); Mean Corpuscular HGB Conc 30.6 g/dl (31.0-35.0); Mean Corpuscular Hemoglobin 25.8 pg (27.0-33.0); Mean Corpuscular Volume 84.3 fL (80-98); Mean Platelet Volume 10.8 fL (9.4-12.3); Monocytes Absolute Auto 0.6 X10*3/uL (0.1-1.2); Neutrophils Absolute Auto 5.7 X10*3/uL (2.0-8.3); Neutrophils Percent Auto 63.4 % (45-73); Platelet Count 262 X10*3/uL (160-400); Red Blood Count 3.57 X10*6/uL (4.20-5.50)
[2021-07-05 11:38] LABS: Lactic Acid 1.3 mmol/L (0.5-2.0)
[2021-07-05 11:41] LABS: COVID-19 Test Negative (Negative)
[2021-07-05 11:49] LABS: B Type Natriuretic Peptide 365 pg/mL (<100)
[2021-07-05 11:54] LABS: Troponin-I High Sensitivity 22.6 ng/L (<3.5-17.0)
[2021-07-05 12:59] LABS: Alanine Aminotransferase 13 U/L (0-31); Albumin Level 3.5 g/dL (3.5-5.0); Alkaline Phosphatase 143 U/L (39-117); Anion Gap 13 (12-20); Aspartate Amino Transferase 18 U/L (5-31); Bilirubin Direct < 0.2 mg/dL (0.0-0.5); Bilirubin Total < 0.2 mg/dL (0.0-1.0); Blood Urea Nitrogen 40 mg/dL (9-16); Calcium 8.5 mg/dL (8.4-10.2); Carbon Dioxide 28 mmol/L (22-29); Chloride 106 mmol/L (96-108); Estimated Glomerular Filt Rate 15; Glucose Random 93 mg/dL (60-115); Lipase 16 U/L (8-78); Magnesium 1.7 mg/dL (1.6-2.6); Potassium 5.5 mmol/L (3.3-5.1); Sodium 141 mmol/L (135-145); Total Protein 7.4 g/dL (6.5-8.0)
[2021-07-05] MEDS: Acetaminophen 325 MG TABLET 650 MG PO (13:00)
[2021-07-05 13:02] VITALS: BP 109/48; PULSE 66; RESP 18; O2SAT 95
[2021-07-05 13:02] LABS: Troponin-I High Sensitivity 26.1 ng/L (<3.5-17.0)
[2021-07-05 14:07] LABS: Appearance Urine CLOUDY; Color Urine YELLOW; Glucose Urine UA 100 MG/DL (NEG); Leukocyte Esterase Urine TRACE (NEG); Nitrite Urine NEG (NEG); Specific Gravity - Urine 1.015 (1.005-1.025); UACC Culture Trigger YES; Urine Blood TRACE (NEG); Urine Ketones NEG (NEG); Urine Protein 2+ MG/DL (NEG-TRACE)
[2021-07-05 14:21] LABS: Bacteria Urine 3+ /LPF
[2021-07-05 14:23] LABS: Amorphous Sediment Urine 3+ /LPF; Mucus Urine 3+ /LPF; Squamous Epithelial Cell Urine 3+ /LPF
[2021-07-05] MEDS: Sodium Zirconium Cyclosilicate 5 GM POWD.PACK PO (14:32)
[2021-07-05 15:08] LABS: Troponin-I High Sensitivity 22.2 ng/L (<3.5-17.0)
[2021-07-05] MEDS: oxyCODONE HCl Immed Release 5 MG TABLET PO (16:01)
[2021-07-05 16:03] VITALS: BP 118/46; PULSE 65; RESP 20; O2SAT 95
== END 2021-07-05 16:40 | disposition home or self-care (01) ==
PROVIDERS: Nurse Practitioner Family; Emergency Provider Emergency Medicine; PCP Internal Medicine
DX: M19.012 Primary osteoarthritis, left shoulder (principal); M79.10 Myalgia, unspecified site; R53.81 Other malaise; Z20.822 Contact with and (suspected) exposure to COVID-19; Z79.899 Other long term (current) drug therapy; Z79.82 Long term (current) use of aspirin
CPT/HCPCS: 36415; 71046; 73030; 80048; 80076; 81001; 83605; 83690; 83735; 83880; 84484; 85025; 87040; 87086; 87635; 93005; 96360; 99284; 99285

== ENCOUNTER → 2021-07-22 11:34 | Outpatient (REF) | payer OTHER, SELFPAY | LOC: HO.SL 11:34 | PROVIDERS: PCP Internal Medicine; Visit Provider Internal Medicine Cardiovascular Disease | DX: G47.10 Hypersomnia, unspecified (principal); J96.01 Acute respiratory failure with hypoxia | CPT/HCPCS: 95806 ==

== ENCOUNTER 2021-08-16 08:21 | Inpatient (IN) | payer OTHER, SELFPAY ==
[2021-08-16] VITALS (10 sets, daily range): BP systolic 111–172; BP diastolic 46–141; PULSE 86–98; RESP 15–20; TEMP 36.3–36.9; O2SAT 92–100; BMI 35.5
--- NOTE | ~2021-08-16 | XR_ITS ---
EXAMINATION: XR CHEST CLINICAL INFORMATION: Chest pain. COMPARISON: None TECHNIQUE: 2 views of the chest were obtained. FINDINGS: The lungs are well-expanded and clear of acute process. The heart size is borderline enlarged periportal vascularity is normal. There is moderate spondylosis throughout dorsal spine. XR/XR chest 2V IMPRESSION: Unremarkable chest exam.
--- NOTE | ~2021-08-16 | XR_ITS ---
EXAMINATION: XR SOFT TISSUE NECK CLINICAL INDICATION: Neck pain COMPARISON: CT cervical spine 05/06/2021 TECHNIQUE: Frontal and lateral views soft tissues neck are obtained. FINDINGS: The vallecula, epiglottis, and area epiglottic folds are unremarkable. The subglottic airway is not visualized on lateral view due to the density from the upper chest and shoulders. Upper cervical prevertebral soft tissues are unremarkable. The visualized nasopharynx and piriform sinuses are unremarkable. No gaseous distention oropharynx. There is mild thickening of the uvula but this is similar to sagittal CT images 05/06/2021. Similarly, mild convexity to the lingual tonsil is also stable. XR/XR soft tissue neck IMPRESSION: 1. Normal epiglottis and vallecula. 2. Subglottic airway not visualized due to overlying soft tissues. 3. Mild convexity lingual tonsil and mild thickening uvula similar to CT 05/06/2021.
--- NOTE | 2021-08-16 09:19 | ECG_ITS ---
Test Reason : DIFFICULTY SWALLOWING Blood Pressure : / mmHG Vent. Rate : 089 BPM Atrial Rate : 089 BPM P-R Int : 172 ms QRS Dur : 124 ms QT Int : 422 ms P-R-T Axes : 048 -17 177 degrees QTc Int : 513 ms Normal sinus rhythm Poor R wave progression Left bundle branch block Abnormal ECG When compared with ECG of 05-JUL-2021 10:57, T wave inversion less evident in Lateral leads Poor R wave progression is new Referred By: Isiah Tavera Electronically Signed By:JULIO SEGUNDO MD
--- NOTE | 2021-08-16 09:28 | ED.GENADULT ---
HPI - General Adult General Chief complaint: General Medical Stated complaint: throat issue Time Seen by Provider: 08/16/21 09:04 Source: patient Mode of arrival: ambulatory Limitations: no limitations History of Present Illness HPI narrative: This is a 66 years old female with multiple medical problems including diabetes type 2, CHF, chronic renal failure, hypertension, nonischemic cardiomyopathy, CVA presented to the emergency department complaining of difficulty swallowing. The patient states that is been an ongoing problem about the now is getting worse. Looking through the record she had an endoscopy of November 21 with dilatation of the esophagus, she has also has history of gastroparesis gerd Onset (ago): week(s) Location: neck Radiation: non-radiation Severity: moderate Quality: aching Pain Consistency: constant Relieving factors: none Related Data Home Medications Medication Instructions Recorded Confirmed amlodipine 2.5 mg tablet 2.5 mg PO QAM 06/20/21 08/16/21 aspirin 81 mg tablet,delayed 81 mg PO QPM 06/20/21 08/16/21 release atorvastatin 80 mg tablet 80 mg PO QPM 06/20/21 08/16/21 calcium carbonate 600 mg (1,500 1 tab PO BID 06/20/21 08/16/21 mg)-vitamin D3 400 unit tablet clopidogrel 75 mg tablet 75 mg PO QAM 06/20/21 08/16/21 gabapentin 100 mg capsule 100 mg PO BID 06/20/21 08/16/21 insulin aspart U-100 100 unit/mL 8 - 12 unit SUBCUT TID 06/20/21 08/16/21 (3 mL) subcutaneous pen (Novolog Flexpen U-100 Insulin aspart) insulin glargine 100 unit/mL (3 64 unit SUBCUT DAILY 06/20/21 08/16/21 mL) subcutaneous pen (Lantus Solostar U-100 Insulin) magnesium oxide 400 mg (241.3 mg 400 mg PO BID 06/20/21 08/16/21 magnesium) tablet sertraline 50 mg tablet 50 mg PO DAILY 06/20/21 08/16/21 trazodone 50 mg tablet 50 mg PO BEDTIME 06/20/21 08/16/21 hydralazine 10 mg tablet 10 mg PO BID 06/29/21 08/16/21 metoclopramide HCl 5 mg tablet 5 mg PO QIDACHS 06/29/21 08/16/21 omeprazole 20 mg capsule,delayed 1 cap PO QAM 08/16/21 08/16/21 release Previous Rx's Medication Instructions Recorded lidocaine 5 % topical patch 1 patch TOPICAL DAILY #15 ea 07/05/21 (Lidoderm) carvedilol 3.125 mg tablet 3.125 mg PO BID #90 tab 08/09/21 furosemide 40 mg tablet (Lasix) 40 mg PO BID 90 Days #180 tab 08/10/21 Allergies Allergy/AdvReac Type Severity Reaction Status Date / Time latex [LATEX] Allergy Intermediate ITCHY Verified 06/29/21 13:08 Review of Systems Constitutional: Constitutional: Reports no additional constitutional complaints ENT: Reports dysphagia Cardiovascular: Cardiovascular: Denies chest pain, Denies chest pain at rest and Denies chest pain with activity Respiratory: Respiratory: Denies cough Gastrointestinal: Gastrointestinal: Denies coffee ground emesis, Reports dysphagia and Denies diarrhea Musculoskeletal: Musculoskeletal: Reports no additional musculoskeletal complaints PMFSH Past Medical History Medical History Acute respiratory failure with hypoxia Anemia Blister of finger without infection Cholecystectomy planned CKD (chronic kidney disease) CKD (chronic kidney disease), stage IV Congestive heart failure Diabetes Diabetes mellitus Elevated d-dimer Essential hypertension Gastroparesis GERD (gastroesophageal reflux disease) Hand pain Hernia HLD (hyperlipidemia) HTN (hypertension) Hypomagnesemia Irritable bowel syndrome with diarrhea Lightheadedness Low blood pressure Non-ST elevated myocardial infarction Nonischemic cardiomyopathy Other and unspecified hyperlipidemia Pharyngoesophageal dysphagia Type 2 diabetes mellitus with unspecified complications Surgical History H/O: hysterectomy History of esophagogastroduodenoscopy (EGD) Hx of colonoscopy Hx of eye surgery Family History Family History Father Lung cancer Mother Diabetes HTN (hypertension) Heart disease Sister Diabetes Heart disease Brother Heart disease Son Diabetes Daughter Diabetes Social History Social History Household Members: Children Household Members Other:: Daughter Housing: House Do you presently have visiting nurse or other home services: No Unable to assess alcohol history related to: Unknown Alcohol intake: never Patient Tobacco Use Status: Never used Tobacco Use of substances other than those prescribed or required for medical reasons: No Advance Directives: No service: No Current occupational status: disabled Physical Exam Vital Signs: Vital Signs: Last Vital Signs Temp 97.6 F 08/16/21 14:23 Pulse 98 08/16/21 14:23 Resp 20 08/16/21 14:23 BP 111/75 08/16/21 14:23 Pulse Ox 96 08/16/21 14:23 Body Mass Index 35.5 Const: General: cooperative and anxious Orientation/consciousness: oriented to person, oriented to place, oriented to time and patient oriented x3 HENMT: Head: Yes normal to inspection Ears: hearing grossly normal bilaterally Face and sinus: Yes normal facial exam Mouth: Normal oral and palatal mucosa present and tongue normal Throat: Yes posterior oropharynx normal Neck: Neck: Yes normal visual inspection, Yes full ROM, Yes no lymphadenopathy and Yes no meningeal signs Thyroid: Thyroid normal Chest: Chest palpation & inspection: normal inspection of the chest Resp: Effort & Inspection: normal respiratory effort Auscultation: clear to auscultation bilaterally Cardio: Jugular venous distension: no JVD Rate: regular rate Rhythm: regular rhythm GI: Inspection: Yes normal to inspection Palpation (GI): Soft to palpation, not firm, nontender and no guarding Auscultation: normal bowel sounds Skin: General skin exam: no rashes or lesions noted Rashes: no rashes Neuro: General: oriented to person, oriented to place, oriented to time, patient oriented x3 and no meningeal signs Extrem: Other: left AKA Course Course Course Narrative: Patient presented there with difficult to swallow we get some basic labs an EKG, I already spoke with Gastroenterology Dr. Edwards he stated that he will call me back in 45 minutes to see if he can do an endoscopy today Reevaluation(s) Reevaluation #1: I discussed the case with the blower and compressor assembler on duty Dr Dieter GONZALEZ because of the persistent hyperkalemia he is unable to perform an endoscopy today so he recommend admission in telemetry and treatment for hyperkalemia we already given to the patient calcium gluconate, albuterol, p.o. Kayexalate and unfortunately potassium dropped only Dr edwards from 6.1 to 6.0 Medical Decision Making Lab Data Result diagrams: 08/16/21 09:38 08/16/21 15:32 Labs: Lab Results 08/16/21 08/16/21 08/16/21 Range/Units 09:38 09:38 09:38 WBC 11.2 H (4.8-10.8) X10*3/uL RBC 4.17 L (4.20-5.50) X10*6/uL Hgb 10.5 L (12.0-16.0) g/dl Hct 33.6 L (37.0-47.0) % MCV 80.6 (80.0-98.0) fL MCH 25.2 L (27.0-33.0) pg MCHC 31.3 (31.0-35.0) g/dl RDW 14.3 (11.0-16.0) % Plt Count 229 (160-400) X10*3/uL MPV 10.2 (9.4-12.3) fL Immature Gran % (Auto) 0.4 (0.0-0.4) % Neut % (Auto) 70.1 (45-73) % Lymph % (Auto) 17.7 L (20-40) % Good[place] % (Auto) 7.8 (2-11) % Eos % (Auto) 3.6 (0-4) % Baso % (Auto) 0.4 (0-2) % Lymph # (Auto) 2.0 (1.2-4.9) X10*3/uL Good[place] # (Auto) 0.9 (0.1-1.2) X10*3/uL Eos # (Auto) 0.4 (0.0-0.4) X10*3/uL Baso # (Auto) 0.0 (0.0-0.2) X10*3/uL Abs Immat Gran (auto) 0.05 H (0.00-0.03) X10*3/uL Absolute Neuts (auto) 7.9 (2.0-8.3) x10*3/uL Absolute Nucleated RBC 0.000 (0.0-0.012) X10*3/uL Nucleated RBC % (auto) 0.0 (0.0-0.2) /100WBC PT 11.8 (9.9-13.0) SEC INR 1.0 (0.9-1.1) APTT 23.9 L D (24.1-38.0) SEC Sodium 139 (135-145) mmol/L Potassium 6.1 H* (3.3-5.1) mmol/L Chloride 112 H (96-108) mmol/L Carbon Dioxide 17 L (22-29) mmol/L Anion Gap 16 (12-20) BUN 35 H (9-16) mg/dL Creatinine 2.69 H (0.5-1.4) mg/dL Estim Creat Clear Calc 17.4 Estimated GFR 18 Random Glucose 68 (60-115) mg/dL Calcium 8.8 (8.4-10.2) mg/dL Total Bilirubin 0.3 (0.0-1.0) mg/dL AST 18 (5-31) U/L ALT 15 (0-31) U/L Alkaline Phosphatase 175 H D (39-117) U/L Troponin I High Sens (<3.5-17.0) ng/L Total Protein 7.7 (6.5-8.0) g/dL Albumin 3.6 (3.5-5.0) g/dL COVID-19 (LUCIUS) (Negative) COVID-19 Clin Com 08/16/21 08/16/21 08/16/21 Range/Units 09:38 11:14 11:57 WBC (4.8-10.8) X10*3/uL RBC (4.20-5.50) X10*6/uL Hgb (12.0-16.0) g/dl Hct (37.0-47.0) % MCV (80.0-98.0) fL MCH (27.0-33.0) pg MCHC (31.0-35.0) g/dl RDW (11.0-16.0) % Plt Count (160-400) X10*3/uL MPV (9.4-12.3) fL Immature Gran % (Auto) (0.0-0.4) % Neut % (Auto) (45-73) % Lymph % (Auto) (20-40) % Gooding % (Auto) (2-11) % Eos % (Auto) (0-4) % Baso % (Auto) (0-2) % Lymph # (Auto) (1.2-4.9) X10*3/uL Good[place] # (Auto) (0.1-1.2) X10*3/uL Eos # (Auto) (0.0-0.4) X10*3/uL Baso # (Auto) (0.0-0.2) X10*3/uL Abs Immat Gran (auto) (0.00-0.03) X10*3/uL Absolute Neuts (auto) (2.0-8.3) x10*3/uL Absolute Nucleated RBC (0.0-0.012) X10*3/uL Nucleated RBC % (auto) (0.0-0.2) /100WBC PT (9.9-13.0) SEC INR (0.9-1.1) APTT (24.1-38.0) SEC Sodium 139 (135-145) mmol/L Potassium 6.0 H* (3.3-5.1) mmol/L Chloride 111 H (96-108) mmol/L Carbon Dioxide 22 (22-29) mmol/L Anion Gap 12 (12-20) BUN 36 H (9-16) mg/dL Creatinine 2.80 H (0.5-1.4) mg/dL Estim Creat Clear Calc 16.7 Estimated GFR 17 Random Glucose 106 (60-115) mg/dL Calcium 9.2 (8.4-10.2) mg/dL Total Bilirubin (0.0-1.0) mg/dL AST (5-31) U/L ALT (0-31) U/L Alkaline Phosphatase (39-117) U/L Troponin I High Sens 26.4 H* (<3.5-17.0) ng/L Total Protein (6.5-8.0) g/dL Albumin (3.5-5.0) g/dL COVID-19 (LUCIUS) Negative (Negative) COVID-19 Clin Com See Note ECG Data Pacemaker model: NSR [id number] Critical Care Time Critical Care Time Critical Care Time: Yes Total Critical Care Time: 30 Attestation: IV calcium gluconate/Albuterol treatment for hyperkalemia Discharge Plan Discharge Clinical Impression: Dysphagia, Hyperkalemia, Acute renal failure Patient Disposition: Admitted As Inpatient
[2021-08-16 09:44] LABS: MANUAL DIFF FLAG NO
[2021-08-16 09:46] LABS: Basophils Percent Auto 0.4 % (0-2); Eosinophils Absolute Auto 0.4 X10*3/uL (0.0-0.4); Eosinophils Percent Auto 3.6 % (0-4); Hematocrit 33.6 % (37.0-47.0); Hemoglobin 10.5 g/dl (12.0-16.0); Imm Gran Abs Auto 0.05 X10*3/uL (0.00-0.03); Imm Gran Pct Auto 0.4 % (0.0-0.4); Lymphocytes Percent Auto 17.7 % (20-40); Mean Corpuscular HGB Conc 31.3 g/dl (31.0-35.0); Mean Corpuscular Hemoglobin 25.2 pg (27.0-33.0); Mean Corpuscular Volume 80.6 fL (80.0-98.0); Mean Platelet Volume 10.2 fL (9.4-12.3); Monocytes Absolute Auto 0.9 X10*3/uL (0.1-1.2); Monocytes Percent Auto 7.8 % (2-11); Neutrophils Absolute Auto 7.9 x10*3/uL (2.0-8.3); Neutrophils Percent Auto 70.1 % (45-73); Platelet Count 229 X10*3/uL (160-400); Red Blood Count 4.17 X10*6/uL (4.20-5.50); Red Cell Distribution Width 14.3 % (11.0-16.0); White Blood Count 11.2 X10*3/uL (4.8-10.8)
--- NOTE | 2021-08-16 10:01 | P.CNGI_ITS ---
History of Present Illness Data of Consult Service Date: 08/16/21 Requesting physician: Isiah Tavera Primary Care Provider: Alexys Avila MD HPI Reason for consult: dysphagia 66 yr old f with hx of choelcystectomy, DM, CVA, gastroparesis and GERD being seen for assessment she has chronic hx of dysphagia but had been doing well with reglan and anti acid treatment now presents with worsening dysphagia over several weeks, says can;t even swallow fluids, only managing chicken broth. she denies abdominal pain, chest pain, just nausea and regurgitation. she denies constipation or diarrhea, no melena or rectal bleeding. LAst EGD was a bout a year ago with empirical dilation done. Review of Systems Review of Systems: Yes all other systems are reviewed and are negative Constitutional: Constitutional: Reports no additional constitutional complaints ENT: Reports dysphagia Cardiovascular: Cardiovascular: Denies chest pain, Denies chest pain at rest and Denies chest pain with activity Respiratory: Respiratory: Denies cough Gastrointestinal: Gastrointestinal: Denies coffee ground emesis, Reports dysphagia and Denies diarrhea Musculoskeletal: Musculoskeletal: Reports no additional musculoskeletal complaints PMFSH Past Medical History Medical History Acute respiratory failure with hypoxia Anemia Blister of finger without infection Cholecystectomy planned CKD (chronic kidney disease) CKD (chronic kidney disease), stage IV Congestive heart failure Diabetes Diabetes mellitus Elevated d-dimer Essential hypertension Gastroparesis GERD (gastroesophageal reflux disease) Hand pain Hernia HLD (hyperlipidemia) HTN (hypertension) Hypomagnesemia Irritable bowel syndrome with diarrhea Lightheadedness Low blood pressure Non-ST elevated myocardial infarction Nonischemic cardiomyopathy Other and unspecified hyperlipidemia Pharyngoesophageal dysphagia Type 2 diabetes mellitus with unspecified complications Family History Family History Father Lung cancer Mother Diabetes HTN (hypertension) Heart disease Sister Diabetes Heart disease Brother Heart disease Son Diabetes Daughter Diabetes Surgical History Surgical History H/O: hysterectomy History of esophagogastroduodenoscopy (EGD) Hx of colonoscopy Hx of eye surgery Social History Social History Household Members: Children Household Members Other:: Daughter Housing: House Do you presently have visiting nurse or other home services: No Unable to assess alcohol history related to: Unknown Alcohol intake: never Patient Tobacco Use Status: Never used Tobacco Use of substances other than those prescribed or required for medical reasons: No Advance Directives: No service: No Current occupational status: disabled Meds Allergies Allergy/AdvReac Type Severity Reaction Status Date / Time latex [LATEX] Allergy Intermediate ITCHY Verified 06/29/21 13:08 Home Medications Medication Instructions Recorded Confirmed Last Taken Type amlodipine 2.5 mg tablet 2.5 mg PO QAM 06/20/21 08/16/21 08/15/21 History aspirin 81 mg tablet,delayed 81 mg PO QPM 06/20/21 08/16/21 08/15/21 History release atorvastatin 80 mg tablet 80 mg PO QPM 06/20/21 08/16/21 08/15/21 History calcium carbonate 600 mg (1,500 1 tab PO BID 06/20/21 08/16/21 08/15/21 History mg)-vitamin D3 400 unit tablet clopidogrel 75 mg tablet 75 mg PO QAM 06/20/21 08/16/21 08/15/21 History gabapentin 100 mg capsule 100 mg PO BID 06/20/21 08/16/21 08/15/21 History insulin aspart U-100 100 unit/mL 8 - 12 unit SUBCUT TID 06/20/21 08/16/21 08/15/21 History (3 mL) subcutaneous pen (Novolog Flexpen U-100 Insulin aspart) insulin glargine 100 unit/mL (3 64 unit SUBCUT DAILY 06/20/21 08/16/21 08/15/21 History mL) subcutaneous pen (Lantus Solostar U-100 Insulin) magnesium oxide 400 mg (241.3 mg 400 mg PO BID 06/20/21 08/16/21 08/15/21 History magnesium) tablet sertraline 50 mg tablet 50 mg PO DAILY 06/20/21 08/16/21 08/15/21 History trazodone 50 mg tablet 50 mg PO BEDTIME 06/20/21 08/16/21 08/15/21 History hydralazine 10 mg tablet 10 mg PO BID 06/29/21 08/16/21 08/15/21 History metoclopramide HCl 5 mg tablet 5 mg PO QIDACHS 06/29/21 08/16/21 08/15/21 History omeprazole 20 mg capsule,delayed 1 cap PO QAM 08/16/21 08/16/21 08/15/21 History release Physical Exam Vital Signs: Vital Signs: Last Vital Signs Temp 98.2 F 08/16/21 09:22 Pulse 89 08/16/21 09:22 Resp 20 08/16/21 09:22 BP 146/59 H 08/16/21 09:22 Pulse Ox 99 08/16/21 09:22 Body Mass Index 35.5 Const: General: cooperative and anxious Orientation/consciousness: oriented to person, oriented to place, oriented to time and patient oriented x3 HENMT: Head: Yes normal to inspection Ears: hearing grossly normal bilaterally Face and sinus: Yes normal facial exam Mouth: Normal oral and palatal mucosa present and tongue normal Throat: Yes posterior oropharynx normal Neck: Neck: Yes normal visual inspection, Yes full ROM, Yes no lymphadenopathy and Yes no meningeal signs Thyroid: Thyroid normal Chest: Chest palpation & inspection: normal inspection of the chest Resp: Effort & Inspection: normal respiratory effort Auscultation: clear to auscultation bilaterally Cardio: Jugular venous distension: no JVD Rate: regular rate Rhythm: regular rhythm GI: Inspection: Yes normal to inspection Palpation (GI): Soft to palpation, not firm, nontender and no guarding Auscultation: normal bowel sounds Skin: General skin exam: no rashes or lesions noted Rashes: no rashes Neuro: General: oriented to person, oriented to place, oriented to time, patient oriented x3 and no meningeal signs Extrem: Other: left AKA Results Labs CBC & Chem 7: 08/16/21 09:38 08/16/21 15:32 Labs: Short CBC 08/16/21 Range/Units 09:38 WBC 11.2 H (4.8-10.8) X10*3/uL Hgb 10.5 L (12.0-16.0) g/dl Hct 33.6 L (37.0-47.0) % Plt Count 229 (160-400) X10*3/uL Assessment and Plan (1) Dysphagia: Status: Acute 1/ Acute on chronic dysphagia uncertain if primary dysmotility disorder e.g achalasia or secondary to DM and chronic systemic disease, medications (no evidence of systemic sclerosis on physical exam). May have mechanical cause as well ddx; GERD related dysmotility, peptic stricture PLAN: 1/ High dose PPI e.g pantoprazole 40 mg bid 2/ EGD for further assessment, Unfortunately couldn;t do today due to high K, possibly tomorrow 3/ If neg then timed ba swallow and referral to [facility] for manometry Procedures Date of Service Date of Service: 08/16/21
[2021-08-16 10:10] LABS: Alanine Aminotransferase 15 U/L (0-31); Albumin Level 3.6 g/dL (3.5-5.0); Alkaline Phosphatase 175 U/L (39-117); Anion Gap 16 (12-20); Aspartate Amino Transferase 18 U/L (5-31); Bilirubin Total 0.3 mg/dL (0.0-1.0); Blood Urea Nitrogen 35 mg/dL (9-16); Calcium 8.8 mg/dL (8.4-10.2); Carbon Dioxide 17 mmol/L (22-29); Chloride 112 mmol/L (96-108); Creatinine Clr Calc Pharmacy 17.4; Estimated Glomerular Filt Rate 18; Glucose Random 68 mg/dL (60-115); Potassium 6.1 mmol/L (3.3-5.1); Sodium 139 mmol/L (135-145); Total Protein 7.7 g/dL (6.5-8.0)
[2021-08-16 10:11] LABS: Troponin-I High Sensitivity 26.4 ng/L (<3.5-17.0)
[2021-08-16 10:25] LABS: Prothrombin Time 11.8 SEC (9.9-13.0)
[2021-08-16] MEDS: Sodium Polystyrene Sulfon/Sorb 15 GM/60 ML ORAL.SUSP 30 GM PO (10:25)
[2021-08-16] MEDS: Omeprazole 20 MG CAPSULE.DR PO (10:25)
[2021-08-16 10:28] LABS: Partial Thromboplastin Time 23.9 SEC (24.1-38.0)
[2021-08-16] MEDS: Calcium Gluconate/NaCl,Iso-Osm 1 GM/50 ML PLAST..BAG IV (10:58)
[2021-08-16] MEDS: Albuterol Sulfate (0.083%) 2.5 MG/3 ML VIAL.NEB 10 MG INHALE (11:02)
--- NOTE | 2021-08-16 11:02 | PC.NURSE ---
Patient alert and oriented x 3. Patient c/o difficulty swallowing x 3 years given water able to swallow but patient feels like its stuck or that there is a mass/lump in throat. K-6.1 given kayexalate, calcium gluconate and albuterol to correct. Patient resting on stretcher. tele: sinus rythym w/pvc's. Patient denies chest pain, and dizziness some sob. covid swabbed. vitals stable. sating 99-100% on room air. will continue to monitor.
--- NOTE | 2021-08-16 11:07 | PC.NURSE ---
report given zehra nance at [facility]
[2021-08-16 11:43] LABS: COVID-19 Test Negative (Negative); IDNOW Serial# 9DD0AD1C
[2021-08-16 12:42] LABS: Anion Gap 12 (12-20); Blood Urea Nitrogen 36 mg/dL (9-16); Calcium 9.2 mg/dL (8.4-10.2); Carbon Dioxide 22 mmol/L (22-29); Chloride 111 mmol/L (96-108); Creatinine Clr Calc Pharmacy 16.7; Estimated Glomerular Filt Rate 17; Glucose Random 106 mg/dL (60-115); Sodium 139 mmol/L (135-145)
--- NOTE | 2021-08-16 13:44 | P.HPHOSP_ITS ---
History of Present Illness Date of Service: 08/16/21 Chief Complaint: Dysphagia History obtained in Greek from the patient and in Iraqi from her daughter. 66yo woman with HFpEF, NICM, CKD3-4, hx CVA, HTN, HLD, DM2 s/p L BKA and multiple finger amputations, GERD, and gastroparesis In October 2019, she underwent EGD at [facility] [place] [facility] by Dr Melvina Montiel after presenting with dysphagia. She was thought to have esophageal dysmotility and underwent empiric dilation. She improved; however, over the last few weeks, she has had progressive dysphagia to solids and liquids, with nausea and vomiting with almost all oral intake. She does not complain of chest pain. No diarrhea. In the ED, potassium level found to be 6.1; 6 on repeat. Serum creatinine was 2.69-2.8, which is at baseline. EKG showed LBBB, which is chronic. She was given insulin, albuterol, calcium gluconate, and SPS. Review of Systems Review of Systems: Yes all other systems are reviewed and are negative [facility] Medical History Acute respiratory failure with hypoxia Anemia Blister of finger without infection Cholecystectomy planned CKD (chronic kidney disease) CKD (chronic kidney disease), stage IV Congestive heart failure Diabetes Diabetes mellitus Elevated d-dimer Essential hypertension Gastroparesis GERD (gastroesophageal reflux disease) Hand pain Hernia HLD (hyperlipidemia) HTN (hypertension) Hypomagnesemia Irritable bowel syndrome with diarrhea Lightheadedness Low blood pressure Non-ST elevated myocardial infarction Nonischemic cardiomyopathy Other and unspecified hyperlipidemia Pharyngoesophageal dysphagia Type 2 diabetes mellitus with unspecified complications Family History Father Lung cancer Mother Diabetes HTN (hypertension) Heart disease Sister Diabetes Heart disease Brother Heart disease Son Diabetes Daughter Diabetes Surgical History H/O: hysterectomy History of esophagogastroduodenoscopy (EGD) Hx of colonoscopy Hx of eye surgery Social History Household Members: Children Household Members Other:: Daughter Housing: House Do you presently have visiting nurse or other home services: No Unable to assess alcohol history related to: Unknown Alcohol intake: never Patient Tobacco Use Status: Never used Tobacco Use of substances other than those prescribed or required for medical reasons: No Advance Directives: No service: No Current occupational status: disabled Meds Allergies Allergy/AdvReac Type Severity Reaction Status Date / Time latex [LATEX] Allergy Intermediate ITCHY Verified 06/29/21 13:08 Home Medications Medication Instructions Recorded Confirmed Last Taken Type amlodipine 2.5 mg tablet 2.5 mg PO QAM 06/20/21 08/16/21 Unknown History aspirin 81 mg tablet,delayed 81 mg PO QPM 06/20/21 08/16/21 Unknown History release atorvastatin 80 mg tablet 80 mg PO QPM 06/20/21 08/16/21 Unknown History calcium carbonate 600 mg (1,500 1 tab PO BID 06/20/21 08/16/21 Unknown History mg)-vitamin D3 400 unit tablet clopidogrel 75 mg tablet 75 mg PO QAM 06/20/21 08/16/21 Unknown History gabapentin 100 mg capsule 100 mg PO BID 06/20/21 08/16/21 Unknown History insulin aspart U-100 100 unit/mL 8 - 12 unit SUBCUT TID 06/20/21 08/16/21 Unknown History (3 mL) subcutaneous pen (Novolog Flexpen U-100 Insulin aspart) insulin glargine 100 unit/mL (3 64 unit SUBCUT DAILY 06/20/21 08/16/21 Unknown History mL) subcutaneous pen (Lantus Solostar U-100 Insulin) magnesium oxide 400 mg (241.3 mg 400 mg PO BID 06/20/21 08/16/21 Unknown History magnesium) tablet sertraline 50 mg tablet 50 mg PO DAILY 06/20/21 08/16/21 Unknown History trazodone 50 mg tablet 50 mg PO BEDTIME 06/20/21 08/16/21 Unknown History hydralazine 10 mg tablet 10 mg PO BID 06/29/21 08/16/21 Unknown History metoclopramide HCl 5 mg tablet 5 mg PO QIDACHS 06/29/21 08/16/21 Unknown History omeprazole 20 mg capsule,delayed 1 cap PO QAM 08/16/21 08/16/21 Unknown History release Physical Exam Vital Signs and Narrative: Vital Signs: Last Vital Signs Temp 98.3 F 08/16/21 11:11 Pulse 88 08/16/21 11:11 Resp 20 08/16/21 11:11 BP 156/81 H 08/16/21 11:11 Pulse Ox 99 08/16/21 11:11 Body Mass Index 35.5 Gen: in no acute distress HEENT: sclera anicteric, moist mucus membranes Neck: supple Lungs: clear to auscultation bilaterally Heart: regular rate and rhythm, no murmurs Abd: soft, non-tender, non-distended Ext: 1+ pitting edema RLE. LLE has BKA. multiple finger amputations Skin: warm/well-perfused Neuro: alert and oriented x3, no focal findings Psych: appropriate affect Results Labs CBC and Chem 7: 08/16/21 09:38 08/16/21 11:57 Labs: Laboratory Results - last 24 hr 08/16/21 08/16/21 08/16/21 09:38 09:38 09:38 MCV 80.6 MCH 25.2 L MCHC 31.3 RDW 14.3 Plt Count 229 MPV 10.2 Immature Gran % (Auto) 0.4 Neut % (Auto) 70.1 Lymph % (Auto) 17.7 L [place] % (Auto) 7.8 Eos % (Auto) 3.6 Baso % (Auto) 0.4 Lymph # (Auto) 2.0 [place] # (Auto) 0.9 Eos # (Auto) 0.4 Baso # (Auto) 0.0 Abs Immat Gran (auto) 0.05 H Absolute Neuts (auto) 7.9 Absolute Nucleated RBC 0.000 Nucleated RBC % (auto) 0.0 PT 11.8 INR 1.0 APTT 23.9 L D Anion Gap 16 Estim Creat Clear Calc 17.4 Estimated GFR 18 Random Glucose 68 Calcium 8.8 Total Bilirubin 0.3 AST 18 ALT 15 Alkaline Phosphatase 175 H D Troponin I High Sens Total Protein 7.7 Albumin 3.6 COVID-19 (LUCIUS) COVID-19 Clin Com 08/16/21 08/16/21 08/16/21 09:38 11:14 11:57 MCV MCH MCHC RDW Plt Count MPV Immature Gran % (Auto) Neut % (Auto) Lymph % (Auto) [place] % (Auto) Eos % (Auto) Baso % (Auto) Lymph # (Auto) [place] # (Auto) Eos # (Auto) Baso # (Auto) Abs Immat Gran (auto) Absolute Neuts (auto) Absolute Nucleated RBC Nucleated RBC % (auto) PT INR APTT Anion Gap 12 Estim Creat Clear Calc 16.7 Estimated GFR 17 Random Glucose 106 Calcium 9.2 Total Bilirubin AST ALT Alkaline Phosphatase Troponin I High Sens 26.4 H* Total Protein Albumin COVID-19 (LUCIUS) Negative COVID-19 Clin Com See Note Imaging Radiologist's Impressions: Impressions Soft Tissue Neck X-Ray 08/16/21 09:17 IMPRESSION: 1. Normal epiglottis and vallecula. 2. Subglottic airway not visualized due to overlying soft tissues. 3. Mild convexity lingual tonsil and mild thickening uvula similar to CT 05/06/2021. Chest X-Ray 08/16/21 09:18 IMPRESSION: Unremarkable chest exam. Assessment and Plan (1) Dysphagia: Status: Acute (2) Hyperkalemia: Status: Acute 66yo woman with HFpEF, NICM, CKD3-4, hx CVA, HTN, HLD, DM2 s/p L BKA and multiple finger amputations, GERD, gastroparesis, and likely esophageal dysmotility s/p dilation in October 2019. She presents with progressive severe dysphagia and has already been seen by the heat treat puller with plan for EGD. However, her potassium is elevated. # hyperK - admit to [facility], telemetry, give Lokelma, recheck potassium today and again in am, Nephrology consult # dysphagia - NPO for EGD tomorrow # CKD3-4 - SCr at baseline # HTN # NICM/chronic HFpEF - continue amlodipine, carvedilol, furosemide, hydralazine # HLD # prior CVA - hold ASA + clopidogrel for EGD in case of dilation/biopsy - continue atorvastatin, carvedilol # DM2 - basal/bolus insulin; decrease dosing as she will be NPO # mood disorder - continue sertraline + trazodone # neuropathy - continue gabapentin # VTE ppx - SCDs, no heparin given planned EGD # code - full Quality Stroke Does the patient have a stroke diagnosis?: No VTE Prior VTE?: No VTE Risk Level:: Medical - moderate - high VTE Device Contraindication: N/A - Device Ordered VTE Drug Contraindication: Treatment Not Indicated
--- NOTE | 2021-08-16 16:03 | PHA.MEDREC ---
Pharmacy Consult ? Medication Reconciliation Pharmacy has completed the medication reconciliation.
[2021-08-16 16:09] LABS: Anion Gap 14 (12-20); Blood Urea Nitrogen 36 mg/dL (9-16); Calcium 8.7 mg/dL (8.4-10.2); Carbon Dioxide 20 mmol/L (22-29); Chloride 111 mmol/L (96-108); Creatinine Clr Calc Pharmacy 16.7; Estimated Glomerular Filt Rate 17; Glucose Random 106 mg/dL (60-115); Potassium 5.5 mmol/L (3.3-5.1); Sodium 139 mmol/L (135-145)
[2021-08-16 16:20] LABS: Troponin-I High Sensitivity 26.7 ng/L (<3.5-17.0)
[2021-08-16] MEDS: amLODIPine Besylate 2.5 MG TABLET PO (16:21)
[2021-08-16] MEDS: Sodium Zirconium Cyclosilicate 10 GM POWD.PACK PO ×2 (16:31→21:43)
[2021-08-16 16:35] LABS: Magnesium 1.6 mg/dL (1.6-2.6)
--- NOTE | 2021-08-16 16:39 | PC.NURSE ---
Patient had a bowel movement soft. k-5.6. will continue t9o monitor.
[2021-08-16] MEDS: 0.9 % Sodium Chloride Flush 3 ML SYRINGE IVFLUSH (17:09)
--- NOTE | 2021-08-16 18:00 | PC.NURSE ---
report given to imc rn
--- NOTE | 2021-08-16 19:29 | PC.NURSE ---
RN assumed care at 1900. Pt alert and oriented, calm and cooperative. pt denies pain. Vitals stable. Pt aware of being admitted. Repot given on previous shift by DONNIE Danielson. Pt transported by [email or web address], on tele monitor.
[2021-08-16 20:39] LABS: Glucose, Whole Blood 70 mg/dL (60-115)
[2021-08-16] MEDS: Dextrose 5 % and Lactated Ring 1,000 ML 50 ML IVCONT (20:45)
[2021-08-16 21:24] LABS: Glucose, Whole Blood 76 mg/dL (60-115)
[2021-08-16] MEDS: Furosemide 40 MG TABLET PO (21:41)
[2021-08-16] MEDS: carvediloL 3.125 MG TABLET PO (21:42)
[2021-08-16] MEDS: Magnesium Oxide 400 MG TABLET PO (21:42)
[2021-08-16] MEDS: Atorvastatin Calcium 80 MG TABLET PO (21:42)
[2021-08-16] MEDS: traZODone HCL 50 MG TABLET PO (21:42)
[2021-08-16] MEDS: Gabapentin 100 MG CAPSULE PO (21:42)
[2021-08-16 22:43] LABS: Glucose, Whole Blood 168 mg/dL (60-115)
[2021-08-17] VITALS (15 sets, daily range): BP systolic 102–160; BP diastolic 36–90; PULSE 72–102; RESP 16–20; TEMP 36.2–37.1; O2SAT 94–100
[2021-08-17 07:40] LABS: Glucose, Whole Blood 159 mg/dL (60-115)
[2021-08-17 07:51] LABS: Anion Gap 13 (12-20); Blood Urea Nitrogen 35 mg/dL (9-16); Calcium 8.4 mg/dL (8.4-10.2); Carbon Dioxide 21 mmol/L (22-29); Chloride 108 mmol/L (96-108); Estimated Glomerular Filt Rate 18; Glucose Random 154 mg/dL (60-115); Potassium 5.4 mmol/L (3.3-5.1); Sodium 137 mmol/L (135-145)
[2021-08-17] MEDS: Insulin Lispro 100 UNIT/ML 3 ML VIAL SUBCUT ×2 (08:35→22:15)
[2021-08-17] MEDS: amLODIPine Besylate 2.5 MG TABLET PO (08:40)
[2021-08-17] MEDS: Pantoprazole Sodium 40 MG/10 ML VIAL IVPUSH ×2 (08:40→16:24)
--- NOTE | 2021-08-17 10:00 | MHC.CM.PN ---
with interpertor met with pt who reports that she saji es with her dgter and grandson she had no servceis prior to admission her dgter will transport her home when she is dcd
--- NOTE | 2021-08-17 10:40 | PC.NURSE ---
Patient c/o pelvic pressure/pain, external cath placed but not draining, order for straight cath received. Straight cath patient at 10:20 drained total of 900ml. Patient tolerated procedure well
[2021-08-17 11:17] LABS: Glucose, Whole Blood 112 mg/dL (60-115)
--- NOTE | 2021-08-17 11:48 | PM.CNNEP ---
History of Present Illness Reason for Consult Consult date: 08/17/21 Reason for consult: Hyperkalemia Chief Complaint Chief complaint: Hyperkalemia Dysphagia History of Present Illness Narrative: 66yo woman with CKD 4 who follows up with me in office , presented with progressive dysphagia to solids and liquids, with nausea and vomiting with almost all oral intake.? She does not complain of chest pain.? No diarrhea.In the ED, potassium level found to be 6.1; 6 on repeat.? Serum creatinine was 2.69-2.8? She was given insulin, albuterol, calcium gluconate, and SPS. Nephrology has been consulted to assist in her clinical care during her current hospital stay. Review of Systems Review of Systems Yes all other systems are reviewed and are negative PMFSH Past Medical History Medical History Acute respiratory failure with hypoxia Anemia Blister of finger without infection Cholecystectomy planned CKD (chronic kidney disease) CKD (chronic kidney disease), stage IV Congestive heart failure Diabetes Diabetes mellitus Elevated d-dimer Essential hypertension Gastroparesis GERD (gastroesophageal reflux disease) Hand pain Hernia HLD (hyperlipidemia) HTN (hypertension) Hypomagnesemia Irritable bowel syndrome with diarrhea Lightheadedness Low blood pressure Non-ST elevated myocardial infarction Nonischemic cardiomyopathy Other and unspecified hyperlipidemia Pharyngoesophageal dysphagia Type 2 diabetes mellitus with unspecified complications Family History Family History Father Lung cancer Mother Diabetes HTN (hypertension) Heart disease Sister Diabetes Heart disease Brother Heart disease Son Diabetes Daughter Diabetes Surgical History Surgical History H/O: hysterectomy History of esophagogastroduodenoscopy (EGD) Hx of colonoscopy Hx of eye surgery Social History Social History Household Members: Family Household Members Other:: Daughter Housing: Apartment Do you presently have visiting nurse or other home services: Yes Unable to assess alcohol history related to: Unknown Alcohol intake: never Patient Tobacco Use Status: Never used Tobacco service: No Current occupational status: disabled Meds Allergies Allergy/AdvReac Type Severity Reaction Status Date / Time latex [LATEX] Allergy Intermediate ITCHY Verified 06/29/21 13:08 Active Medications: Current Medications Acetaminophen (Acetaminophen 325 Mg Tablet) 650 mg PO Q6H PRN PRN Reason: Pain, Mild (Pain Scale 1-3) Amlodipine Besylate (Amlodipine Besylate 2.5 Mg Tablet) 2.5 mg PO DAILY [facility]; Protocol Last Admin: 08/17/21 08:40 Dose: 2.5 mg Documented by: Atorvastatin Calcium (Atorvastatin Calcium 80 Mg Tablet) 80 mg PO BEDTIME [facility] Last Admin: 08/16/21 21:42 Dose: 80 mg Documented by: Calcium Carbonate/Cholecalciferol (Calcium + Vitamin D 250 Mg Tablet) 500 mg PO BID [facility] Last Admin: 08/17/21 09:18 Dose: Not Given Documented by: Carvedilol (Carvedilol 3.125 Mg Tablet) 3.125 mg PO BID [facility]; Protocol Last Admin: 08/17/21 09:22 Dose: Not Given Documented by: Dextrose (Dextrose 50 % 25 Gm/50 Ml Vial) 25 gm IVPUSH Q15M PRN; Protocol PRN Reason: per Hypoglycemia Standing Ord. Last Admin: 08/16/21 21:36 Dose: 25 gm Documented by: Furosemide (Furosemide 40 Mg Tablet) 40 mg PO BID [facility]; Protocol Last Admin: 08/17/21 09:20 Dose: Not Given Documented by: Gabapentin (Gabapentin 100 Mg Capsule) 100 mg PO BID [facility] Last Admin: 08/17/21 09:20 Dose: Not Given Documented by: Glucose (Glucose Gel 15 Gm Gel..Gram.) 15 gm PO Q15M PRN; Protocol PRN Reason: per Hypoglycemia Standing Ord. Dextrose/Lactated Ringer's (D5lr) 1,000 mls @ 50 mls/hr IVCONT .Q20H [facility] Last Admin: 08/16/21 20:45 Dose: 50 mls/hr Documented by: Dextrose/Lactated Ringer's (D5lr) 1,000 mls @ 50 mls/hr IVCONT .Q20H [facility] Last Admin: 08/16/21 22:31 Dose: Not Given Documented by: Insulin Glargine (Insulin Glargine,Hum.Rec.Anlog 100 Unit/Ml 10 Ml Vial) 32 unit SUBCUT BEDTIME [facility] Last Admin: 08/16/21 21:43 Dose: Not Given Documented by: Insulin Human Lispro (Insulin Lispro 100 Unit/Ml 3 Ml Vial) 0 unit SUBCUT QIDACHS [facility]; Protocol Last Admin: 08/17/21 08:35 Dose: 4 unit Documented by: Magnesium Oxide (Magnesium Oxide 400 Mg Tablet) 400 mg PO BID [facility] Last Admin: 08/17/21 09:18 Dose: Not Given Documented by: Omeprazole (Omeprazole 20 Mg Capsule.Dr) 20 mg PO DAILY [facility] Last Admin: 08/16/21 16:32 Dose: Not Given Documented by: Ondansetron HCl (Ondansetron Hcl 4 Mg/2 Ml Vial) 4 mg IVPUSH Q8H PRN PRN Reason: Nausea and Vomiting Pantoprazole Sodium (Pantoprazole Sodium 40 Mg/10 Ml Vial) 40 mg IVPUSH BID@0630,1630 [facility] Last Admin: 08/17/21 08:40 Dose: 40 mg Documented by: Sertraline HCl (Sertraline Hcl 50 Mg Tablet) 50 mg PO DAILY [facility] Last Admin: 08/17/21 09:20 Dose: Not Given Documented by: Sodium Chloride (0.9 % Sodium Chloride Flush 3 Ml Syringe) 3 ml IVFLUSH QSHIFT [facility] Last Admin: 08/17/21 08:34 Dose: Not Given Documented by: Sodium Zirconium Cyclosilicate (Sodium Zirconium Cyclosilicate 10 Gm Powd.Pack) 10 gm PO TID [facility] Stop: 08/18/21 09:01 Last Admin: 08/17/21 11:24 Dose: Not Given Documented by: Trazodone HCl (Trazodone Hcl 50 Mg Tablet) 50 mg PO BEDTIME [facility] Last Admin: 08/16/21 21:42 Dose: 50 mg Documented by: Home Medications Medication Instructions Recorded Confirmed Last Taken Type amlodipine 2.5 mg tablet 2.5 mg PO QAM 06/20/21 08/16/21 08/15/21 History aspirin 81 mg tablet,delayed 81 mg PO QPM 06/20/21 08/16/21 08/15/21 History release atorvastatin 80 mg tablet 80 mg PO QPM 06/20/21 08/16/21 08/15/21 History calcium carbonate 600 mg (1,500 1 tab PO BID 06/20/21 08/16/21 08/15/21 History mg)-vitamin D3 400 unit tablet clopidogrel 75 mg tablet 75 mg PO QAM 06/20/21 08/16/21 08/15/21 History gabapentin 100 mg capsule 100 mg PO BID 06/20/21 08/16/21 08/15/21 History insulin aspart U-100 100 unit/mL 8 - 12 unit SUBCUT TID 06/20/21 08/16/21 08/15/21 History (3 mL) subcutaneous pen (Novolog Flexpen U-100 Insulin aspart) insulin glargine 100 unit/mL (3 64 unit SUBCUT DAILY 06/20/21 08/16/21 08/15/21 History mL) subcutaneous pen (Lantus Solostar U-100 Insulin) magnesium oxide 400 mg (241.3 mg 400 mg PO BID 06/20/21 08/16/21 08/15/21 History magnesium) tablet sertraline 50 mg tablet 50 mg PO DAILY 06/20/21 08/16/21 08/15/21 History trazodone 50 mg tablet 50 mg PO BEDTIME 06/20/21 08/16/21 08/15/21 History hydralazine 10 mg tablet 10 mg PO BID 06/29/21 08/16/21 08/15/21 History metoclopramide HCl 5 mg tablet 5 mg PO QIDACHS 06/29/21 08/16/21 08/15/21 History omeprazole 20 mg capsule,delayed 1 cap PO QAM 08/16/21 08/16/21 08/15/21 History release patiromer calcium sorbitex 16.8 1 packet PO DAILY 08/16/21 08/16/21 08/15/21 History gram oral powder packet ([place]) Physical Exam Vital Signs: Last Vital Signs Temp 97.6 F 08/17/21 11:29 Pulse 77 08/17/21 11:29 Resp 18 08/17/21 11:29 BP 160/62 H 08/17/21 11:29 Pulse Ox 95 08/17/21 11:29 Body Mass Index 35.5 Const General: comfortable Orientation/consciousness: patient oriented x3 HENMT Head: Yes normocephalic Eyes EOM: EOMs intact bilaterally Neck Neck: Yes supple Resp Auscultation: diminished lung sounds Cardio Rate: regular rate GI Palpation (GI): Soft to palpation Neuro General: patient oriented x3 Results Lab Results Result Diagrams: 08/16/21 09:38 08/17/21 05:31 Lab results: Chemistry 08/16/21 08/16/21 08/16/21 09:38 11:57 15:32 Sodium 139 139 139 Potassium 6.1 H* 6.0 H* 5.5 H Carbon Dioxide 17 L 22 20 L BUN 35 H 36 H 36 H Creatinine 2.69 H 2.80 H 2.80 H Calcium 8.8 9.2 8.7 08/17/21 05:31 Sodium 137 Potassium 5.4 H Carbon Dioxide 21 L BUN 35 H Creatinine 2.61 H Calcium 8.4 Hematology 08/16/21 09:38 WBC 11.2 H Hgb 10.5 L Plt Count 229 Assessment and Plan (1) Hyperkalemia: Status: Acute Has baseline CKD 4 Renal function close to baseline now Has partial Type 4 Renal tubular Acidosis Low potassium diet; Lokelma 10 Gram daily No ACEI/ARB/NSAID's. BP needs to be at goal. If HCO3 drops, needs NaHCO3 650 mg daily May need florinef 0.1 mg as outpatient if she has recurrent hyperkalemia; No indication for HD Procedures Date of Service Date of Service: 08/17/21
--- NOTE | 2021-08-17 13:14 | P.CONAN_ITS ---
HPI - Anesthesia Eval Consult details Narrative: 66 yo female patient for [facility] Active Problems Active Problems: All Active Problems (Updated 08/16/21 @ 13:06 by Isiah Tavera MD) Dysphagia (Acute) Hyperkalemia (Acute) Acute renal failure (Acute) Acute congestive heart failure (Acute) CKD (chronic kidney disease) stage 3, GFR 30-59 ml/min (Acute) GIL (acute kidney injury) (Acute) Cerebral infarction (Acute) Acute CVA (cerebrovascular accident) (Acute) Acute hyperkalemia (Acute ~06/2021) Acute on chronic renal failure (Acute) Patient states was told needs device for heart because of fluid in lungs. Review of chart reveals discussion with cardiology about CardioMEMs insertion Past Medical History Medical History Acute respiratory failure with hypoxia Anemia Blister of finger without infection Cholecystectomy planned CKD (chronic kidney disease) CKD (chronic kidney disease), stage IV Congestive heart failure Diabetes Diabetes mellitus Elevated d-dimer Essential hypertension Gastroparesis GERD (gastroesophageal reflux disease) Hand pain Hernia HLD (hyperlipidemia) HTN (hypertension) Hypomagnesemia Irritable bowel syndrome with diarrhea Lightheadedness Low blood pressure Non-ST elevated myocardial infarction Nonischemic cardiomyopathy Other and unspecified hyperlipidemia Pharyngoesophageal dysphagia Type 2 diabetes mellitus with unspecified complications Family History Family History Father Lung cancer Mother Diabetes HTN (hypertension) Heart disease Sister Diabetes Heart disease Brother Heart disease Son Diabetes Daughter Diabetes Family history of problems with anesthesia: No Surgical History Surgical History H/O: hysterectomy History of esophagogastroduodenoscopy (EGD) Hx of colonoscopy Hx of eye surgery History of Problems with Anesthesia: No Social History Social History Household Members: Family Household Members Other:: Daughter Housing: Apartment Do you presently have visiting nurse or other home services: Yes Unable to assess alcohol history related to: Unknown Alcohol intake: never Patient Tobacco Use Status: Never used Tobacco service: No Current occupational status: disabled Meds Allergies Allergy/AdvReac Type Severity Reaction Status Date / Time latex [LATEX] Allergy Intermediate ITCHY Verified 06/29/21 13:08 Active Medications: Current Medications Acetaminophen (Acetaminophen 325 Mg Tablet) 650 mg PO Q6H PRN PRN Reason: Pain, Mild (Pain Scale 1-3) Amlodipine Besylate (Amlodipine Besylate 2.5 Mg Tablet) 2.5 mg PO DAILY [facility]; Protocol Last Admin: 08/17/21 08:40 Dose: 2.5 mg Documented by: Atorvastatin Calcium (Atorvastatin Calcium 80 Mg Tablet) 80 mg PO BEDTIME MATTY Last Admin: 08/16/21 21:42 Dose: 80 mg Documented by: Calcium Carbonate/Cholecalciferol (Calcium + Vitamin D 250 Mg Tablet) 500 mg PO BID [facility] Last Admin: 08/17/21 09:18 Dose: Not Given Documented by: Carvedilol (Carvedilol 3.125 Mg Tablet) 3.125 mg PO BID [facility]; Protocol Last Admin: 08/17/21 09:22 Dose: Not Given Documented by: Dextrose (Dextrose 50 % 25 Gm/50 Ml Vial) 25 gm IVPUSH Q15M PRN; Protocol PRN Reason: per Hypoglycemia Standing Ord. Last Admin: 08/16/21 21:36 Dose: 25 gm Documented by: Furosemide (Furosemide 40 Mg Tablet) 40 mg PO BID MATTY; Protocol Last Admin: 08/17/21 09:20 Dose: Not Given Documented by: Gabapentin (Gabapentin 100 Mg Capsule) 100 mg PO BID [facility] Last Admin: 08/17/21 09:20 Dose: Not Given Documented by: Glucose (Glucose Gel 15 Gm Gel..Gram.) 15 gm PO Q15M PRN; Protocol PRN Reason: per Hypoglycemia Standing Ord. Dextrose/Lactated Ringer's (D5lr) 1,000 mls @ 50 mls/hr IVCONT .Q20H [facility] Last Infusion: 08/17/21 12:14 Dose: 0 mls/hr Documented by: Dextrose/Lactated Ringer's (D5lr) 1,000 mls @ 50 mls/hr IVCONT .Q20H [facility]ATT[facility] Last Admin: 08/16/21 22:31 Dose: Not Given Documented by: Insulin Glargine (Insulin Glargine,Hum.Rec.Anlog 100 Unit/Ml 10 Ml Vial) 32 unit SUBCUT BEDTIME MATTY Last Admin: 08/16/21 21:43 Dose: Not Given Documented by: Insulin Human Lispro (Insulin Lispro 100 Unit/Ml 3 Ml Vial) 0 unit SUBCUT QIDACHS [facility]; Protocol Last Admin: 08/17/21 12:08 Dose: Not Given Documented by: Magnesium Oxide (Magnesium Oxide 400 Mg Tablet) 400 mg PO BID [facility] Last Admin: 08/17/21 09:18 Dose: Not Given Documented by: Omeprazole (Omeprazole 20 Mg Capsule.Dr) 20 mg PO DAILY [facility] Last Admin: 08/16/21 16:32 Dose: Not Given Documented by: Ondansetron HCl (Ondansetron Hcl 4 Mg/2 Ml Vial) 4 mg IVPUSH Q8H PRN PRN Reason: Nausea and Vomiting Pantoprazole Sodium (Pantoprazole Sodium 40 Mg/10 Ml Vial) 40 mg IVPUSH BID@0630,1630 [facility] Last Admin: 08/17/21 08:40 Dose: 40 mg Documented by: Sertraline HCl (Sertraline Hcl 50 Mg Tablet) 50 mg PO DAILY [facility] Last Admin: 08/17/21 09:20 Dose: Not Given Documented by: Sodium Chloride (0.9 % Sodium Chloride Flush 3 Ml Syringe) 3 ml IVFLUSH QSHIFT [facility] Last Admin: 08/17/21 08:34 Dose: Not Given Documented by: Sodium Zirconium Cyclosilicate (Sodium Zirconium Cyclosilicate 10 Gm Powd.Pack) 10 gm PO TID [facility] Stop: 08/18/21 09:01 Last Admin: 08/17/21 11:24 Dose: Not Given Documented by: Trazodone HCl (Trazodone Hcl 50 Mg Tablet) 50 mg PO BEDTIME [facility] Last Admin: 08/16/21 21:42 Dose: 50 mg Documented by: Home Medications Medication Instructions Recorded Confirmed Last Taken Type amlodipine 2.5 mg tablet 2.5 mg PO QAM 06/20/21 08/16/21 08/15/21 History aspirin 81 mg tablet,delayed 81 mg PO QPM 06/20/21 08/16/21 08/15/21 History release atorvastatin 80 mg tablet 80 mg PO QPM 06/20/21 08/16/21 08/15/21 History calcium carbonate 600 mg (1,500 1 tab PO BID 06/20/21 08/16/21 08/15/21 History mg)-vitamin D3 400 unit tablet clopidogrel 75 mg tablet 75 mg PO QAM 06/20/21 08/16/21 08/15/21 History gabapentin 100 mg capsule 100 mg PO BID 06/20/21 08/16/21 08/15/21 History insulin aspart U-100 100 unit/mL 8 - 12 unit SUBCUT TID 06/20/21 08/16/21 08/15/21 History (3 mL) subcutaneous pen (Novolog Flexpen U-100 Insulin aspart) insulin glargine 100 unit/mL (3 64 unit SUBCUT DAILY 06/20/21 08/16/21 08/15/21 History mL) subcutaneous pen (Lantus Solostar U-100 Insulin) magnesium oxide 400 mg (241.3 mg 400 mg PO BID 06/20/21 08/16/21 08/15/21 History magnesium) tablet sertraline 50 mg tablet 50 mg PO DAILY 06/20/21 08/16/21 08/15/21 History trazodone 50 mg tablet 50 mg PO BEDTIME 06/20/21 08/16/21 08/15/21 History hydralazine 10 mg tablet 10 mg PO BID 06/29/21 08/16/21 08/15/21 History metoclopramide HCl 5 mg tablet 5 mg PO QIDACHS 06/29/21 08/16/21 08/15/21 History omeprazole 20 mg capsule,delayed 1 cap PO QAM 08/16/21 08/16/21 08/15/21 History release patiromer calcium sorbitex 16.8 1 packet PO DAILY 08/16/21 08/16/21 08/15/21 History gram oral powder packet ([place]) Exam Exam Date and Time: August 17, 2021 1314 Height,Weight and Vital Signs: Height 4 ft 10 in Weight 77.111 kg Last Vital Signs Temp 98.2 F 08/17/21 12:48 Pulse 81 08/17/21 12:48 Resp 18 08/17/21 12:48 BP 137/56 L 08/17/21 12:48 Pulse Ox 98 08/17/21 12:48 Pertinent Lab Results Pertinent Lab Results: Laboratory Tests 08/16/21 08/16/21 08/16/21 09:38 09:38 09:38 WBC 11.2 H RBC 4.17 L Hgb 10.5 L Hct 33.6 L MCV 80.6 MCH 25.2 L MCHC 31.3 RDW 14.3 Plt Count 229 MPV 10.2 Immature Gran % (Auto) 0.4 Neut % (Auto) 70.1 Lymph % (Auto) 17.7 L [place] % (Auto) 7.8 Eos % (Auto) 3.6 Baso % (Auto) 0.4 Lymph # (Auto) 2.0 [place] # (Auto) 0.9 Eos # (Auto) 0.4 Baso # (Auto) 0.0 Abs Immat Gran (auto) 0.05 H Absolute Neuts (auto) 7.9 Absolute Nucleated RBC 0.000 Nucleated RBC % (auto) 0.0 PT 11.8 INR 1.0 APTT 23.9 L D Sodium 139 Potassium 6.1 H* Chloride 112 H Carbon Dioxide 17 L Anion Gap 16 BUN 35 H Creatinine 2.69 H Estim Creat Clear Calc 17.4 Estimated GFR 18 POC Glucose Random Glucose 68 Calcium 8.8 Magnesium Total Bilirubin 0.3 AST 18 ALT 15 Alkaline Phosphatase 175 H D Troponin I High Sens Total Protein 7.7 Albumin 3.6 COVID-19 ([facility]) COVID-19 Clin Com 08/16/21 08/16/21 08/16/21 09:38 11:14 11:57 WBC RBC Hgb Hct MCV MCH MCHC RDW Plt Count MPV Immature Gran % (Auto) Neut % (Auto) Lymph % (Auto) [place] % (Auto) Eos % (Auto) Baso % (Auto) Lymph # (Auto) [place] # (Auto) Eos # (Auto) Baso # (Auto) Abs Immat Gran (auto) Absolute Neuts (auto) Absolute Nucleated RBC Nucleated RBC % (auto) PT INR APTT Sodium 139 Potassium 6.0 H* Chloride 111 H Carbon Dioxide 22 Anion Gap 12 BUN 36 H Creatinine 2.80 H Estim Creat Clear Calc 16.7 Estimated GFR 17 POC Glucose Random Glucose 106 Calcium 9.2 Magnesium Total Bilirubin AST ALT Alkaline Phosphatase Troponin I High Sens 26.4 H* Total Protein Albumin COVID-19 ([facility]) Negative COVID-19 Clin Com See Note 08/16/21 08/16/21 08/16/21 15:32 15:32 20:23 WBC RBC Hgb Hct MCV MCH MCHC RDW Plt Count MPV Immature Gran % (Auto) Neut % (Auto) Lymph % (Auto) [place] % (Auto) Eos % (Auto) Baso % (Auto) Lymph # (Auto) [place] # (Auto) Eos # (Auto) Baso # (Auto) Abs Immat Gran (auto) Absolute Neuts (auto) Absolute Nucleated RBC Nucleated RBC % (auto) PT INR APTT Sodium 139 Potassium 5.5 H Chloride 111 H Carbon Dioxide 20 L Anion Gap 14 BUN 36 H Creatinine 2.80 H Estim Creat Clear Calc 16.7 Estimated GFR 17 POC Glucose 70 Random Glucose 106 Calcium 8.7 Magnesium 1.6 Total Bilirubin AST ALT Alkaline Phosphatase Troponin I High Sens 26.7 H* Total Protein Albumin COVID-19 ([facility]) COVID-19 [facility] Com 08/16/21 08/16/21 08/17/21 21:21 22:40 05:31 WBC RBC Hgb Hct MCV MCH MCHC RDW Plt Count MPV Immature Gran % (Auto) Neut % (Auto) Lymph % (Auto) [place] % (Auto) Eos % (Auto) Baso % (Auto) Lymph # (Auto) [place] # (Auto) Eos # (Auto) Baso # (Auto) Abs Immat Gran (auto) Absolute Neuts (auto) Absolute Nucleated RBC Nucleated RBC % (auto) PT INR APTT Sodium 137 Potassium 5.4 H Chloride 108 Carbon Dioxide 21 L Anion Gap 13 BUN 35 H Creatinine 2.61 H Estim Creat Clear Calc 18.0 Estimated GFR 18 POC Glucose 76 168 H Random Glucose 154 H Calcium 8.4 Magnesium Total Bilirubin AST ALT Alkaline Phosphatase Troponin I High Sens Total Protein Albumin COVID-19 ([facility]) COVID-19 [facility] Com 08/17/21 08/17/21 07:20 11:03 WBC RBC Hgb Hct MCV MCH MCHC RDW Plt Count MPV Immature Gran % (Auto) Neut % (Auto) Lymph % (Auto) [place] % (Auto) Eos % (Auto) Baso % (Auto) Lymph # (Auto) [place] # (Auto) Eos # (Auto) Baso # (Auto) Abs Immat Gran (auto) Absolute Neuts (auto) Absolute Nucleated RBC Nucleated RBC % (auto) PT INR APTT Sodium Potassium Chloride Carbon Dioxide Anion Gap BUN Creatinine Estim Creat Clear Calc Estimated GFR POC Glucose 159 H 112 Random Glucose Calcium Magnesium Total Bilirubin AST ALT Alkaline Phosphatase Troponin I High Sens Total Protein Albumin COVID-19 ([facility]) COVID-19 [facility] Com Narrative Narrative: Date of Service: 08/16/21 Procedure(s): ECG 12 lead EKG Vent. Rate : 089 BPM ? ? Atrial Rate : 089 BPM ?? P-R Int : 172 ms? QRS Dur : 124 ms ? ? QT Int : 422 ms ? ? ? P-R-T Axes : 048 -17 177 degrees ?? QTc Int : 513 ms ? Normal sinus rhythm Poor R wave progression Left bundle branch block Abnormal ECG When compared with ECG of 05-JUL-2021 10:57, T wave inversion less evident in Lateral leads Poor R wave progression is new Date of Service: 06/05/21 Procedure(s): Transthoracic Echocardiogram Location:? ICU Conclusions: -? 1. Normal LV systolic function with grade 2 diastolic ? dysfunction? 2. Mild left atrial enlargement? 3. Calcified aortic valve changes noted with mild aortic stenosis 4. Mitral calcification with mild? regurgitation? 5. Severely elevated right ventricular systolic pressure ? 6. No pericardial effusion ? Left Ventricle Normal left ventricular cavity size.? There is normal left ventricular wall thickness.? The left ventricular systolic function is moderately decreased. The visually estimated ejection fraction is between 35-40%.? There is moderate global hypokinesis.? Spectral Doppler is indicative of a pseudonormal filling pattern.? E/E prime ratio is >15, consistent with elevated filling pressures.? Evidence suggests grade II (moderate) diastolic dysfunction. Right Ventricle Normal right ventricular cavity size. Atria The left atrium is mildly dilated.? Interatrial shunt cannot be excluded. The right atrium is normal in size. Aortic Valve There is mild calcification of the aortic valve.? The peak aortic gradient is 17 mmHg.The mean gradient is 8 mmHg.? There is no aortic valve regurgitation. Mitral Valve There is moderate anterior and mild posterior mitral leaflet thickening. There is mild mitral annular calcification.? There is mild mitral valve regurgitation.? There is no mitral valve stenosis. Pulmonic Valve The pulmonic valve was not well visualized. Tricuspid Valve Likely normal tricuspid valve structure and function.? The right ventricular systolic pressure is 75 mmHg.? Mildly elevated right atrial pressure.? Severe pulmonary hypertension is present. Great Vessels All visible segments of the aorta are normal in size.? The pulmonary artery was not well visualized. Venous The inferior vena cava is mildly dilated and collapses greater than 50% with inspiration. Pericardium/Pleural There is no evidence of pericardial effusion. Prior Study Comparison Changes noted compared to prior study dated:? 12/25/2020.? RV systolic pressure is significantly increased ?? Airway Mallampati Class: II TM Dist: >3cm Neck ROM: Full Loose/Missing/Broken Teeth: Yes (Many missing. Front chipped) Heart: RRR Lungs: CTAB. Diminished Assessment and Plan Assessment Anesthesia Assessment: Anesthesia Plan Discussed and Chart Reviewed Final Anesthetic Review Family History of Problems with Anesthesia: No History of Problems with Anesthesia: No NPO: Yes ASA Class: IV Final Preanesthetic Review: No Changes in Pt Med Stat, Meds/Allgs Chart Reviewed, Consent Obtained/Reviewed and Anes Risks/Benef Reviewed Patient Risk: High Procedure Risk: Low Assessment/Block/Sedation in SS: Assess/Block/Sedation- Anesthetic Plan Anesthetic Plan: MAC: Disposition: Standard PACU and Inp. Admit - Standard Bed
[2021-08-17 13:18] LABS: Glucose, Whole Blood 82 mg/dL (60-115)
--- NOTE | 2021-08-17 13:59 | MHC.SHP ---
Pre-Procedural Eval Section A Date of Service: 08/17/21 The patient is an INPATIENT: Yes The History & Physical has been completed within 30 days and I have reviewed it.: Yes Section B Chief Complaint: Hyperkalemia Dysphagia Allergies: Allergies Allergy/AdvReac Type Severity Reaction Status Date / Time latex [LATEX] Allergy Intermediate ITCHY Verified 06/29/21 13:08 Plan Diagnosis/Plan: Unchanged I have reviewed the history and physical and performed a pertinent physical examination on my patient. No changes have occurred unless specified.
--- NOTE | 2021-08-17 13:59 | PM.OP ---
Brief Operative Note Date of Service: 08/17/21 Pre-op diagnosis: dysphagia Post-op diagnosis: same Procedure: see op note Surgeon: Raymond Garcias MD Anesthesia: GETA and MAC Was an Butter Production Supervisor used for this Procedure?: No Estimated blood loss (mL): 0 Condition: stable Disposition: PACU
--- NOTE | 2021-08-17 13:59 | W.PM.OPN ---
Operative Note Operative Note Date of Service: 08/17/21 Narrative: Procedure Description: EGD FLEXIBLE TRANSORAL UPPER GASTROINTESTINAL ENDOSCOPY UPPER ENDOSCOPY Consent: Indications for the procedure and potential complications of bleeding, perforation, reaction to medications and missed diagnosis were discussed with the patient and informed consent was obtained. Instrument: Olympus GIF H 190 J mid size upper endoscope Monitoring: Vital signs and clinical assessment, continuous EKG monitoring, Pulse oximetry, Carbon Dioxide monitoring and blood pressure monitoring were done throughout the procedure. Procedure: The patient was placed in the left lateral decubitis position and pre-procedure medications were administered and a bite block was placed. The endoscope was inserted into the mouth and advanced under direct vision to the third part of duodenum. A careful inspection was made as the upper endoscope was withdrawn including a retroflexed examination of the proximal stomach; Findings and interventions are described below. Findings: Larynx:normal Esophagus: GE junction at 38 cm, diaphragm hiatus at 38 cm, no varices or esophagitis. The GEJ was v lax. Balloon dilation done at UES to 12 mm, no tear seen, some resistance felt Stomach: Normal mucosa. Grade 3 flap valve on retroflexed examination of the cardia. Duodenum: Normal bulb and descending duodenum, Intervention: Balloon dilation Impression/Findings: Dysphagia, may be 2/2 to GERD or dysmotility PLAN: high dose PPI, use pantoprazole 40 mg BID with carafate advance diet as tolerated
[2021-08-17 16:05] LABS: Potassium 4.6 mmol/L (3.3-5.1)
--- NOTE | 2021-08-17 16:15 | P.PNIM_ITS ---
Subjective Subjective Date of Service: 08/17/21 Interval History: Dysphagia, urinary retention Review of Systems Patient still complaining about dysphagia,this morning also has suprapubic discomfort due to urinary retention. Physical Exam Vital Signs: Vital Signs: Last Vital Signs Temp 98 F 08/17/21 15:51 Pulse 102 H 08/17/21 15:51 Resp 16 08/17/21 15:51 BP 121/87 08/17/21 15:51 Pulse Ox 99 08/17/21 15:51 Body Mass Index 35.5 Gen: in no acute distress HEENT: sclera anicteric, moist mucus membranes Neck: supple Lungs: clear to auscultation bilaterally Heart: regular rate and rhythm, no murmurs Abd: soft, non-tender, non-distended Ext: 1+ pitting edema RLE.? LLE has BKA.? multiple finger amputations Skin: warm/well-perfused Neuro: alert and oriented x3, no focal findings Psych: appropriate affe Objective Data Active Medications Acetaminophen (Acetaminophen 325 Mg Tablet) 650 mg PO Q6H PRN PRN Reason: Pain, Mild (Pain Scale 1-3) Acetaminophen (Acetaminophen 325 Mg Tablet) 650 mg PO ONCE PRN PRN Reason: Pain, Mild (Pain Scale 1-3) Amlodipine Besylate (Amlodipine Besylate 2.5 Mg Tablet) 2.5 mg PO DAILY [facility]; Protocol Last Admin: 08/17/21 08:40 Dose: 2.5 mg Documented by: MELINDA Atorvastatin Calcium (Atorvastatin Calcium 80 Mg Tablet) 80 mg PO BEDTIME [facility] Last Admin: 08/16/21 21:42 Dose: 80 mg Documented by: FERN Calcium Carbonate/Cholecalciferol (Calcium + Vitamin D 250 Mg Tablet) 500 mg PO BID [facility] Last Admin: 08/17/21 09:18 Dose: Not Given Documented by: MELINDA Non-Admin Reason: NPO Carvedilol (Carvedilol 3.125 Mg Tablet) 3.125 mg PO BID [facility]; Protocol Last Admin: 08/17/21 09:22 Dose: Not Given Documented by: MELINDA Non-Admin Reason: NPO Dextrose (Dextrose 50 % 25 Gm/50 Ml Vial) 25 gm IVPUSH Q15M PRN; Protocol PRN Reason: per Hypoglycemia Standing Ord. Last Admin: 08/16/21 21:36 Dose: 25 gm Documented by: FERN Furosemide (Furosemide 40 Mg Tablet) 40 mg PO BID [facility]; Protocol Last Admin: 08/17/21 09:20 Dose: Not Given Documented by: MELINDA Non-Admin Reason: NPO Gabapentin (Gabapentin 100 Mg Capsule) 100 mg PO BID [facility] Last Admin: 08/17/21 09:20 Dose: Not Given Documented by: MELINDA Non-Admin Reason: NPO Glucose (Glucose Gel 15 Gm Gel..Gram.) 15 gm PO Q15M PRN; Protocol PRN Reason: per Hypoglycemia Standing Ord. Dextrose/Lactated Ringer's (D5lr) 1,000 mls @ 50 mls/hr IVCONT .Q20H [facility] Last Infusion: 08/17/21 12:14 Dose: 0 mls/hr Documented by: MELINDA Sodium Chloride (Ns) 1,000 mls @ 50 mls/hr IVCONT .Q20H [facility] Insulin Glargine (Insulin Glargine,Hum.Rec.Anlog 100 Unit/Ml 10 Ml Vial) 32 unit SUBCUT BEDTIME [facility] Last Admin: 08/16/21 21:43 Dose: Not Given Documented by: FERN Non-Admin Reason: low BS Insulin Human Lispro (Insulin Lispro 100 Unit/Ml 3 Ml Vial) 0 unit SUBCUT QIDACHS [facility]; Protocol Last Admin: 08/17/21 12:08 Dose: Not Given Documented by: MELINDA Non-Admin Reason: No Insulin Coverage Magnesium Oxide (Magnesium Oxide 400 Mg Tablet) 400 mg PO BID [facility] Last Admin: 08/17/21 09:18 Dose: Not Given Documented by: MELINDA Non-Admin Reason: NPO Ondansetron HCl (Ondansetron Hcl 4 Mg/2 Ml Vial) 4 mg IVPUSH Q8H PRN PRN Reason: Nausea and Vomiting Ondansetron HCl (Ondansetron Hcl 4 Mg/2 Ml Vial) 4 mg IVPUSH ONCE PRN PRN Reason: Nausea and Vomiting Pantoprazole Sodium (Pantoprazole Sodium 40 Mg/10 Ml Vial) 40 mg IVPUSH BID@0630,1630 [facility] Last Admin: 08/17/21 08:40 Dose: 40 mg Documented by: MELINDA Sertraline HCl (Sertraline Hcl 50 Mg Tablet) 50 mg PO DAILY [facility] Last Admin: 08/17/21 09:20 Dose: Not Given Documented by: MELINDA Non-Admin Reason: NPO Sodium Chloride (0.9 % Sodium Chloride Flush 3 Ml Syringe) 3 ml IVFLUSH QSHIFT [facility] Last Admin: 08/17/21 08:34 Dose: Not Given Documented by: MELINDA Non-Admin Reason: IV Running Sodium Zirconium Cyclosilicate (Sodium Zirconium Cyclosilicate 10 Gm Powd.Pack) 10 gm PO TID [facility] Stop: 08/18/21 09:01 Last Admin: 08/17/21 11:24 Dose: Not Given Documented by: MELINDA Non-Admin Reason: Patient Refused Trazodone HCl (Trazodone Hcl 50 Mg Tablet) 50 mg PO BEDTIME [facility] Last Admin: 08/16/21 21:42 Dose: 50 mg Documented by: FERN Labs CBC & Chem 7: 08/16/21 09:38 08/17/21 15:23 Labs: Laboratory Results - last 24 hr 08/16/21 08/16/21 08/16/21 15:32 15:32 20:23 Anion Gap Estim Creat Clear Calc Estimated GFR POC Glucose 70 Random Glucose Calcium Magnesium 1.6 Troponin I High Sens 26.7 H* 08/16/21 08/16/21 08/17/21 21:21 22:40 05:31 Anion Gap 13 Estim Creat Clear Calc 18.0 Estimated GFR 18 POC Glucose 76 168 H Random Glucose 154 H Calcium 8.4 Magnesium Troponin I High Sens 08/17/21 08/17/21 08/17/21 07:20 11:03 13:09 Anion Gap Estim Creat Clear Calc Estimated GFR POC Glucose 159 H 112 82 Random Glucose Calcium Magnesium Troponin I High Sens Assessment and Plan (1) Dysphagia: Status: Acute (2) Hyperkalemia: Status: Acute (3) Acute renal failure: Status: Acute Assessment and Plan: 66yo woman with HFpEF, NICM, CKD3-4, hx CVA, HTN, HLD, DM2 s/p L BKA and multiple finger amputations, GERD, gastroparesis, and likely esophageal dysmotility s/p dilation in October 2019.? She presents with progressive severe dysphagia and has already been seen by the child care sitter with plan for EGD .? However, her potassium is elevated. 1. hyperK - admit to [facility] [place], telemetry, give Lokelma, recheck potassium today and again in am, Nephrology consult 2. dysphagia - NPO for EGD today-status post balloon dilation, will start full liquid diet. Continue PPI. 3. CKD3-4 - SCr at baseline 4. HTN # NICM/chronic HFpEF - continue amlodipine, carvedilol, furosemide, hydralazine 5. HLD # prior CVA - hold ASA + clopidogrel for EGD in case of dilation/biopsy - continue atorvastatin, carvedilol 6. DM2 - basal/bolus insulin; decrease dosing as she will be NPO 7.mood disorder - continue sertraline + trazodone 8. neuropathy - continue gabapentin 9. VTE ppx - SCDs, no heparin given planned just had EGD ballon dilation 10. Urine retention: PVR with straight cath p. may need urology evaluation if d oes not improve. Quality Stroke Does the patient have a stroke diagnosis?: No VTE Prior VTE?: No VTE Risk Level:: Medical - moderate - high VTE Device Contraindication: N/A - Device Ordered VTE Drug Contraindication: Treatment Not Indicated
[2021-08-17] MEDS: 0.9 % Sodium Chloride 1,000 ML 50 ML IVCONT (16:24)
[2021-08-17] MEDS: Sodium Zirconium Cyclosilicate 10 GM POWD.PACK PO ×2 (16:24→22:16)
[2021-08-17] MEDS: 0.9 % Sodium Chloride Flush 3 ML SYRINGE IVFLUSH (16:28)
[2021-08-17 16:34] LABS: Glucose, Whole Blood 114 mg/dL (60-115)
[2021-08-17 20:57] LABS: Glucose, Whole Blood 174 mg/dL (60-115)
[2021-08-17] MEDS: Calcium + Vitamin D 250 MG TABLET 500 MG PO (22:14)
[2021-08-17] MEDS: Furosemide 40 MG TABLET PO (22:14)
[2021-08-17] MEDS: Gabapentin 100 MG CAPSULE PO (22:14)
[2021-08-17] MEDS: traZODone HCL 50 MG TABLET PO (22:14)
[2021-08-17] MEDS: carvediloL 3.125 MG TABLET PO (22:15)
[2021-08-17] MEDS: Magnesium Oxide 400 MG TABLET PO (22:15)
[2021-08-17] MEDS: Atorvastatin Calcium 80 MG TABLET PO (22:15)
[2021-08-18 03:19] VITALS: BP 135/62; PULSE 73; RESP 18; TEMP 36.4; O2SAT 91
[2021-08-18] MEDS: Pantoprazole Sodium 40 MG/10 ML VIAL IVPUSH (06:01)
[2021-08-18 07:04] LABS: Anion Gap 15 (12-20); Blood Urea Nitrogen 31 mg/dL (9-16); Carbon Dioxide 21 mmol/L (22-29); Chloride 110 mmol/L (96-108); Creatinine Clr Calc Pharmacy 16.7; Estimated Glomerular Filt Rate 17; Glucose Random 142 mg/dL (60-115); Sodium 141 mmol/L (135-145)
[2021-08-18 07:12] LABS: Glucose, Whole Blood 132 mg/dL (60-115)
[2021-08-18 07:18] VITALS: BP 131/60; PULSE 81; RESP 20; TEMP 36.9; O2SAT 94
--- NOTE | 2021-08-18 08:17 | PM.DS ---
DS: Providers Provider Date of Service: 08/18/21 Date of admission: 08/16/21 14:07 Date of discharge: 08/18/21 Primary care physician: Alexys Avila MD Consults: 08/16/21 14:05 Consult to Nephrology Routine Consulting Provider: Gamaliel Jimenez Reason for consultation: hyperK DS: Diagnosis Discharge Diagnosis (1) Dysphagia: Status: Acute (2) Hyperkalemia: Status: Acute (3) Acute renal failure: Status: Acute (4) CKD (chronic kidney disease) stage 3, GFR 30-59 ml/min: Status: Acute DS: Summary Hospital Course Hospital Course: 66yo woman with HFpEF, NICM, CKD3-4, hx CVA, HTN, HLD, DM2 s/p L BKA and multiple finger amputations, GERD, and gastroparesis ? In October 2019, she underwent EGD at [facility] by Dr Melvina Montiel after presenting with dysphagia.? She was thought to have esophageal dysmotility and underwent empiric dilation.? She improved; however, over the last few weeks, she has had progressive dysphagia to solids and liquids, with nausea and vomiting with almost all oral intake.? She does not complain of chest pain.? No diarrhea. In the ED, potassium level found to be 6.1; 6 on repeat.? Serum creatinine was 2.69-2.8, which is at baseline.? EKG showed LBBB, which is chronic.? She was given insulin, albuterol, calcium gluconate, and SPS. Hospital course: Patient came to the hospital because of dysphagia: Seen by GI-dysphagia was thought to be secondary to GERD versus dysmotility-patient underwent balloon dilation afterwards tolerated the diet fine, going home with omeprazole and Carafate. Further management outpatient as per GI. Patient also found to have hyperkalemia: Which improved with lokema , also taking well takes site home. Advised for low-potassium diet. Monitor renal function and electrolytes with PCP and Nephrology outpatient. ckd : Creatinine seems to be near to baseline. Monitor renal function as above. Urine retention: Improved with straight cath, added tamsulosin-consider outpatient urology evaluation if needed. Above management discussed with the patient in detail length with lining printer- she understand and in agreement with the above plan, time spent 50 minutes and 50% time spent on counseling. Significant findings: As above. Procedures performed: None. Treatment and response: As above. Complications: None. Time Spent with Patient Time attestation: Total time spent providing and/or coordinating discharge services: Discharge coordination time: Greater than 30 minutes Quality: Stroke Does the patient have a stroke diagnosis?: No Physical Exam Vital Signs: Vital Signs: Last Vital Signs Temp 98.4 F 08/18/21 07:18 Pulse 81 08/18/21 07:18 Resp 20 08/18/21 07:18 BP 131/60 08/18/21 07:18 Pulse Ox 94 08/18/21 07:18 Body Mass Index 35.5 Gen: in no acute distress HEENT: sclera anicteric, moist mucus membranes Neck: supple Lungs: clear to auscultation bilaterally Heart: regular rate and rhythm, no murmurs Abd: soft, non-tender, non-distended Ext: no edema ,? LLE has BKA.? multiple finger amputations Skin: warm/well-perfused Neuro: alert and oriented x3, no focal findings Psych: appropriate affect. DS: Data Data Completed and Pending Completed studies during hospitalization [Text1]: Procedures Introduction of Other Thrombolytic into Peripheral Vein, Percutaneous Approach (06/05/21) Transfusion of Nonautologous Red Blood Cells into Peripheral Vein, Percutaneous Approach (12/24/20) Labs on day of discharge: Laboratory Results - last 24 hr 08/17/21 08/17/21 08/17/21 11:03 13:09 15:23 Sodium Potassium 4.6 Chloride Carbon Dioxide Anion Gap BUN Creatinine Estim Creat Clear Calc Estimated GFR POC Glucose 112 82 Random Glucose Calcium 08/17/21 08/17/21 08/18/21 16:24 20:52 05:43 Sodium 141 Potassium 5.0 Chloride 110 H Carbon Dioxide 21 L Anion Gap 15 BUN 31 H Creatinine 2.81 H Estim Creat Clear Calc 16.7 Estimated GFR 17 POC Glucose 114 174 H Random Glucose 142 H Calcium 8.0 L 08/18/21 07:08 Sodium Potassium Chloride Carbon Dioxide Anion Gap BUN Creatinine Estim Creat Clear Calc Estimated GFR POC Glucose 132 H Random Glucose Calcium Additional Comments Additional comments: CXR:IMPRESSION: Unremarkable chest exam. Discharge Plan Discharge Patient Disposition: Home Health Service Discharge Diagnosis: dysphagia , hyperkalemia , ckd Referrals: Alexys Avila MD [Primary Care Provider] - 1 Week (Your doctor's office should call you to schedule a follow up appointment. ) Discharge Medications: New sucralfate [Carafate] 1 gram tablet 1 g PO BID Qty: 60 RF: 0 pantoprazole 40 mg tablet,delayed release (DR/EC) 40 mg PO DAILY Qty: 60 RF: 0 tamsulosin 0.4 mg Capsule 0.4 mg PO DAILY Qty: 30 RF: 0 Continued carvedilol 3.125 mg tablet 3.125 mg PO BID Qty: 90 RF: 0 furosemide [Lasix] 40 mg tablet 40 mg PO BID 90 Days Qty: 180 RF: 1 atorvastatin 80 mg tablet 80 mg PO QPM RF: 0 trazodone 50 mg tablet 50 mg PO BEDTIME RF: 0 amlodipine 2.5 mg tablet 2.5 mg PO QAM RF: 0 clopidogrel 75 mg tablet 75 mg PO QAM RF: 0 aspirin 81 mg tablet,delayed release (DR/EC) 81 mg PO QPM RF: 0 magnesium oxide 400 mg (241.3 mg magnesium) tablet 400 mg PO BID RF: 0 gabapentin 100 mg capsule 100 mg PO BID RF: 0 sertraline 50 mg tablet 50 mg PO DAILY RF: 0 insulin aspart U-100 [Novolog Flexpen U-100 Insulin] 100 unit/mL (3 mL) insulin pen 8 - 12 unit subcut TID RF: 0 calcium carbonate-vitamin D3 600 mg(1,500mg) -400 unit tablet 1 tab PO BID RF: 0 Lantus Solostar U-100 Insulin 100 unit/mL (3 mL) insulin pen 64 unit subcut DAILY RF: 0 lidocaine [Lidoderm] 5 % adhesive patch,medicated 1 patch topical DAILY Qty: 15 RF: 0 Veltassa 16.8 gram powder in packet 1 packet PO DAILY RF: 0 Discontinued omeprazole 20 mg capsule,delayed release(DR/EC) 1 cap PO QAM RF: 0 Discharge Orders: Discharge Order (Routine); Ordered 08/18/21 Ordered By: Mamadou Mixon Diet: advance to usual diet and diabetic diet Activity on Discharge: As tolerated Stand Alone Forms: Patient Portal Discharge page Other Ambulatory Orders: Basic Metabolic Panel Fasting (Routine) Timeframe: 1 Week Facility: [facility] - Location: Laboratory Ordered By: Mamadou Mixon Care Plan Goals: Patient came to the hospital because of dysphagia: Seen by GI-dysphagia was thought to be secondary to GERD versus dysmotility-patient underwent balloon dilation afterwards tolerated the diet fine, going home with omeprazole and Carafate. Further management outpatient as per GI. Patient also found to have hyperkalemia: Which improved with lokema , also taking well takes site home. Advised for low-potassium diet. Monitor renal function and electrolytes with PCP and Nephrology outpatient. ckd : Creatinine seems to be near to baseline. Monitor renal function as above. Urine retention: Improved with straight cath, added tamsulosin-consider outpatient urology evaluation if needed. Health Concerns: As above. Plan of Treatment: As above. Assessment: As above.
[2021-08-18 10:14] VITALS: BP 131/60; PULSE 81
[2021-08-18] MEDS: carvediloL 3.125 MG TABLET PO (10:14)
[2021-08-18] MEDS: Magnesium Oxide 400 MG TABLET PO (10:14)
[2021-08-18] MEDS: Calcium + Vitamin D 250 MG TABLET 500 MG PO (10:14)
[2021-08-18] MEDS: Gabapentin 100 MG CAPSULE PO (10:15)
[2021-08-18] MEDS: Sertraline HCL 50 MG TABLET PO (10:15)
[2021-08-18] MEDS: Tamsulosin HCL 0.4 MG CAPSULE PO (10:15)
[2021-08-18 10:16] VITALS: BP 131/60; PULSE 81
[2021-08-18] MEDS: amLODIPine Besylate 2.5 MG TABLET PO (10:16)
[2021-08-18] MEDS: Furosemide 40 MG TABLET PO (10:16)
[2021-08-18] MEDS: Sodium Zirconium Cyclosilicate 10 GM POWD.PACK PO (10:18)
[2021-08-18] MEDS: 0.9 % Sodium Chloride Flush 3 ML SYRINGE IVFLUSH (10:23)
--- NOTE | 2021-08-18 10:43 | PM.PNNEP ---
Subjective Subjective Date of Service: 08/18/21 Interval history: Events noted. Serum K better. No new issues. All recent data reviewed Physical Exam Vital Signs: Vital Signs: Last Vital Signs Temp 98.4 F 08/18/21 07:18 Pulse 81 08/18/21 10:16 Resp 20 08/18/21 07:18 BP 131/60 08/18/21 10:16 Pulse Ox 94 08/18/21 07:18 Body Mass Index 35.5 Const: General: comfortable Orientation/consciousness: patient oriented x3 HENMT: Head: Yes normocephalic Eyes: EOM: EOMs intact bilaterally Neck: Neck: Yes supple Resp: Auscultation: diminished lung sounds Cardio: Rate: regular rate GI: Palpation (GI): Soft to palpation Neuro: General: patient oriented x3 Objective Data Labs CBC & Chem 7: 08/16/21 09:38 08/18/21 05:43 Labs: Laboratory Results - last 24 hr 08/17/21 08/17/21 08/17/21 11:03 13:09 15:23 Sodium Potassium 4.6 Chloride Carbon Dioxide Anion Gap BUN Creatinine Estim Creat Clear Calc Estimated GFR POC Glucose 112 82 Random Glucose Calcium 08/17/21 08/17/21 08/18/21 16:24 20:52 05:43 Sodium 141 Potassium 5.0 Chloride 110 H Carbon Dioxide 21 L Anion Gap 15 BUN 31 H Creatinine 2.81 H Estim Creat Clear Calc 16.7 Estimated GFR 17 POC Glucose 114 174 H Random Glucose 142 H Calcium 8.0 L 08/18/21 07:08 Sodium Potassium Chloride Carbon Dioxide Anion Gap BUN Creatinine Estim Creat Clear Calc Estimated GFR POC Glucose 132 H Random Glucose Calcium Procedures Date of Service Date of Service: 08/18/21 Assessment & Plan Assessment and plan (1) Acute on chronic renal failure: Status: Acute Assessment and Plan: Has baseline CKD 4 Renal function close to baseline now Has partial Type 4 Renal tubular Acidosis Low potassium diet; Lokelma 10 Gram daily No ACEI/ARB/NSAID's. BP needs to be at goal. If HCO3 drops, needs NaHCO3 650 mg daily May need florinef 0.1 mg as outpatient if she has recurrent hyperkalemia; Shall arrange office follow up if D/Mian Time Spent With Patient Time: Total time spent is greater than 50% in coordination of care (as documented) at patient's floor/unit and/or counseling patient: Progress Note: Quality Stroke Does the patient have a stroke diagnosis?: No
[2021-08-18 11:31] LABS: Glucose, Whole Blood 276 mg/dL (60-115)
[2021-08-18 11:50] VITALS: BP 166/70; PULSE 83; RESP 20; TEMP 37.1; O2SAT 94
[2021-08-18] MEDS: Insulin Lispro 100 UNIT/ML 3 ML VIAL SUBCUT (12:18)
--- NOTE | 2021-08-18 12:40 | MHC.CM.PN ---
pt dcd today mohsen /cca authorizing hvns
--- NOTE | 2021-08-18 13:37 | W.MHC.F2F ---
Service Date Service Date: 08/18/21 Encounter Date of encounter: 08/18/21 Encounter: CKD, dysphagia, hyperkalemia. Reasons for Services Reason for chcf: medication management, medication treatment and teach disease management MD Overseeing Care: Alexys Avila Homebound: Leaving the home is medically contraindicated at this time without the asist of a device and/or another person due th the listed conditions above and below. Homebound supporting statement: Patient has multiple comorbidities including CKD, dysphagia, hyperkalemia and also generalized weak post hospitalization and also need help with appointments. Certification: Based on the above findings, I certify that this patient is confined to the home and needs intermittent chcf care, physical therapy and/or speech therapy, or continues to need occupational therapy. The patient is under my care, and I have initiated the establishment of the plan of care. The patient will be followed by a physician who will periodically review the plan of care.
[2021-08-18 14:08] VITALS: O2SAT 96
--- NOTE | 2021-08-18 15:10 | HO.POSTANES ---
Post Anesthesia Evaluation Post Anesthesia Evaluation Vital Signs: Vital Signs Temp Pulse Resp BP Pulse Ox 08/18/21 14:08 96 08/18/21 11:50 98.8 F 83 20 166/70 H 94 08/18/21 10:16 81 131/60 08/18/21 10:14 81 131/60 08/18/21 07:18 98.4 F 81 20 131/60 94 08/18/21 03:19 97.5 F 73 18 135/62 91 L Anesthesia: Monitored Mental Status: Awake Pain Control: Satisfactory Nausea/Vomiting: None Hydration: Adequate Anesthesia-Related Issues: No Anes. Related Issues
== END 2021-08-18 15:30 | disposition home health service (06) | DRG 392 ==
LOC: HO.ED 13:06 → HO.EDOVER 14:28 → HO.IMC 16:46
PROVIDERS: Internal Medicine Gastroenterology; Admitting Provider Family Medicine; Emergency Provider Emergency Medicine; PCP Internal Medicine; Visit Provider Internal Medicine
PROC: 0DJ08ZZ Inspection of Upper Intestinal Tract, Via Natural or Artificial Opening Endoscopic (ICD-10-PCS; CPT 43235; principal; 2021-08-17 13:00)
DX: K22.4 Dyskinesia of esophagus (principal); I13.0 Hypertensive heart and chronic kidney disease with heart failure and stage 1 through stage 4 chronic kidney disease, or unspecified chronic kidney disease; N18.4 Chronic kidney disease, stage 4 (severe); I50.32 Chronic diastolic (congestive) heart failure; N17.9 Acute kidney failure, unspecified; I42.8 Other cardiomyopathies; E11.22 Type 2 diabetes mellitus with diabetic chronic kidney disease; Z20.822 Contact with and (suspected) exposure to COVID-19; K21.9 Gastro-esophageal reflux disease without esophagitis; E78.5 Hyperlipidemia, unspecified; E87.5 Hyperkalemia; Z86.73 Personal history of transient ischemic attack (TIA), and cerebral infarction without residual deficits; E11.40 Type 2 diabetes mellitus with diabetic neuropathy, unspecified; Z91.040 Latex allergy status; Z89.512 Acquired absence of left leg below knee; Z79.4 Long term (current) use of insulin; Z79.02 Long term (current) use of antithrombotics/antiplatelets; Z79.82 Long term (current) use of aspirin; Z79.899 Other long term (current) drug therapy
CPT/HCPCS: 36415; 70360; 71046; 80048; 80053; 82947; 83735; 84132; 84484; 85025; 85610; 85730; 87635; 93005; 94640; 94644; 96365; 99284; 99285; C1726; J0610; J2405; J3010

== ENCOUNTER 2021-09-09 09:31 | Emergency (ER) | payer OTHER, SELFPAY ==
[2021-09-09 09:36] VITALS: BP 120/70; PULSE 70; O2SAT 98
[2021-09-09 09:47] VITALS: BP 146/65; PULSE 68; RESP 16; TEMP 36.7; O2SAT 97; BMI 38.2
--- NOTE | 2021-09-09 09:57 | ED_ITS ---
HPI - Eye Problem General Chief complaint: Eye Problems Stated complaint: LEFT EYE ISSUE Time Seen by Provider: 09/09/21 09:39 Source: patient and EMS Mode of arrival: EMS History of Present Illness HPI Narrative: 66-year-old female with a past medical history of acute on chronic renal failure, anemia, CKD, CHF, diabetes, hypertension, gastroparesis, GERD, hyperlipidemia, IBS, presenting to the ED complaining of left eye erythema, discomfort, pruritus, drainage, and blurry vision x3 days. Also reports pimple noted to left upper eyelid with mild swelling. Denies known trauma/fall or injury, vision loss, fever/chills chief complaint: eye pain and eye redness Onset (ago): day(s) Related Data Home Medications Medication Instructions Recorded Confirmed amlodipine 2.5 mg tablet 2.5 mg PO QAM 06/20/21 08/16/21 aspirin 81 mg tablet,delayed 81 mg PO QPM 06/20/21 08/16/21 release atorvastatin 80 mg tablet 80 mg PO QPM 06/20/21 08/16/21 calcium carbonate 600 mg (1,500 1 tab PO BID 06/20/21 08/16/21 mg)-vitamin D3 400 unit tablet clopidogrel 75 mg tablet 75 mg PO QAM 06/20/21 08/16/21 gabapentin 100 mg capsule 100 mg PO BID 06/20/21 08/16/21 insulin aspart U-100 100 unit/mL 8 - 12 unit SUBCUT TID 06/20/21 08/16/21 (3 mL) subcutaneous pen (Novolog Flexpen U-100 Insulin aspart) insulin glargine 100 unit/mL (3 64 unit SUBCUT DAILY 06/20/21 08/16/21 mL) subcutaneous pen (Lantus Solostar U-100 Insulin) magnesium oxide 400 mg (241.3 mg 400 mg PO BID 06/20/21 08/16/21 magnesium) tablet sertraline 50 mg tablet 50 mg PO DAILY 06/20/21 08/16/21 trazodone 50 mg tablet 50 mg PO BEDTIME 06/20/21 08/16/21 hydralazine 10 mg tablet 10 mg PO BID 06/29/21 08/16/21 metoclopramide HCl 5 mg tablet 5 mg PO QIDACHS 06/29/21 08/16/21 patiromer calcium sorbitex 16.8 1 packet PO DAILY 08/16/21 08/16/21 gram oral powder packet (Veltassa) Previous Rx's Medication Instructions Recorded lidocaine 5 % topical patch 1 patch TOPICAL DAILY #15 ea 07/05/21 (Lidoderm) carvedilol 3.125 mg tablet 3.125 mg PO BID #90 tab 08/09/21 furosemide 40 mg tablet (Lasix) 40 mg PO BID 90 Days #180 tab 08/10/21 pantoprazole 40 mg tablet,delayed 40 mg PO DAILY #60 tab 08/18/21 release sucralfate 1 gram tablet (Carafate) 1 g PO BID #60 tab 08/18/21 tamsulosin 0.4 mg capsule 0.4 mg PO DAILY #30 cap 08/18/21 polymyxin B sulfate 10,000 1 drp OPHTHALMIC (EYE) Q3H 7 Days 09/09/21 unit-trimethoprim 1 mg/mL eye #10 ml drops (Polytrim) Allergies Allergy/AdvReac Type Severity Reaction Status Date / Time latex [LATEX] Allergy Intermediate ITCHY Verified 06/29/21 13:08 Review of Systems Review of Systems: Constitutional: No Fever, No Chills, No Fatigue, No Malaise ENT/Mouth: No Hearing loss, No Ear Pain, No Nasal Congestion, No Sinus Pain, No Hoarseness, No sore throat,No Swallowing Difficulty Eyes: + Eye Pain, + Swelling, + Redness, No Foreign Body, + Discharge, + Vision Changes Cardiovascular: No Chest Pain, No SOB Respiratory: No Cough, No Dyspnea Gastrointestinal: No Nausea, No Vomiting, No Abdominal pain Genitourinary: No Dysuria, No Urinary Frequency, No Flank Pain Musculoskeletal: No joint pain, No Myalgias, No Joint Swelling Skin: No Skin Lesions, No rash Neuro: No Weakness, NoNo Headache Yes all other systems are reviewed and are negative [facility] Past Medical History Attestation statement: The following information was validated with the patient. Medical History Acute on chronic renal failure Acute respiratory failure with hypoxia Anemia Blister of finger without infection Cholecystectomy planned CKD (chronic kidney disease) CKD (chronic kidney disease), stage IV Congestive heart failure Diabetes Diabetes mellitus Elevated d-dimer Essential hypertension Gastroparesis GERD (gastroesophageal reflux disease) Hand pain Hernia HLD (hyperlipidemia) HTN (hypertension) Hypomagnesemia Irritable bowel syndrome with diarrhea Lightheadedness Low blood pressure Non-ST elevated myocardial infarction Nonischemic cardiomyopathy Other and unspecified hyperlipidemia Pharyngoesophageal dysphagia Type 2 diabetes mellitus with unspecified complications Surgical History H/O: hysterectomy History of esophagogastroduodenoscopy (EGD) Hx of colonoscopy Hx of eye surgery Family History Family History Father Lung cancer Mother Diabetes HTN (hypertension) Heart disease Sister Diabetes Heart disease Brother Heart disease Son Diabetes Daughter Diabetes Social History Social History Household Members: Family Household Members Other:: Daughter Housing: Apartment Do you presently have visiting nurse or other home services: Yes Unable to assess alcohol history related to: Unknown Alcohol intake: never Patient Tobacco Use Status: Never used Tobacco Advance Directives: No Advance Directives Information Provided: No service: No Current occupational status: disabled Physical Exam Vital Signs: Vital Signs: Last Vital Signs Temp 98.1 F 09/09/21 09:47 Pulse 68 09/09/21 09:47 Resp 16 09/09/21 09:47 BP 146/65 H 09/09/21 09:47 Pulse Ox 97 09/09/21 09:47 BMI result Body Mass Index 38.2 Const: General: cooperative, healthy appearing, comfortable and no acute distress Orientation/consciousness: patient oriented x3 Limitations: no limitations HENMT: Head: Yes normal to inspection Ears: hearing grossly normal bilaterally General nose exam: Normal external nose present Face and sinus: Yes normal facial exam Eyes: Other: Small pimple noted to left upper eyelid. Mild left eye erythema/irritation with clear drainage and eyelid crusting. + left eye conjunctival injection. Fluorescein used, no appreciable uptake or corneal abrasion/ulceration. EOMs intact without pain Conjunctivae: conjunctival abnormal left conjunctival injection; Negative for without chemosis and without subconjunctival hemmorhages Sclerae: sclerae normal Corneas: corneas normal and fluorescein used Pupils: Equal, round and reactive pupils present EOM: EOMs intact bilaterally Direct Ophthalmoscopy: normal light reflex and no photophobia Neck: Neck: Yes normal visual inspection Resp: Effort & Inspection: normal respiratory effort and no respiratory distress Cardio: Rate: regular rate Heart sounds: S1 normal heart sound present and S2 normal heart sound present Skin: Rashes: no rashes Wounds: no wounds Neuro: General: patient oriented x3 Cranial nerves: Yes Equal, round and reactive pupils present Extrem: General: Yes normal to inspection MDM - Eye Problem MDM Narrative Medical decision making narrative: 66-year-old female with a past medical history of acute on chronic renal failure, anemia, CKD, CHF, diabetes, hypertension, gastroparesis, GERD, hyperlipidemia, IBS, presenting to the ED complaining of left eye erythema, discomfort, pruritus, drainage, and blurry vision x3 days. On exam vital signs stable, NAD, physical exam as above consistent with conjunctivitis. External left upper eyelid pimple noted with out evidence of cellulitis. Low concern for periorbital or orbital cellulitis Medical Records Attestation: I reviewed the patient's medical records. Lab Data Attestation: I reviewed the patient's lab results. Discharge Plan Discharge Clinical Impression: Bacterial conjunctivitis Patient Disposition: Home, Self-Care Instructions: Conjunctivitis (ED) Additional Instructions: You have conjunctivitis. Polytrim eyedrops will help with her infection, use as prescribed If her symptoms persist or worsen, you develops any visual changes/loss or continued symptoms please return to the emergency department Prescriptions: New polymyxin B sulf-trimethoprim [Polytrim] 10,000 unit- 1 mg/mL drops 1 drp ophthalmic (eye) Q3H 7 Days Qty: 10 RF: 0 No Action carvedilol 3.125 mg tablet 3.125 mg PO BID Qty: 90 RF: 0 furosemide [Lasix] 40 mg tablet 40 mg PO BID 90 Days Qty: 180 RF: 1 atorvastatin 80 mg tablet 80 mg PO QPM RF: 0 trazodone 50 mg tablet 50 mg PO BEDTIME RF: 0 amlodipine 2.5 mg tablet 2.5 mg PO QAM RF: 0 clopidogrel 75 mg tablet 75 mg PO QAM RF: 0 aspirin 81 mg tablet,delayed release (DR/EC) 81 mg PO QPM RF: 0 magnesium oxide 400 mg (241.3 mg magnesium) tablet 400 mg PO BID RF: 0 gabapentin 100 mg capsule 100 mg PO BID RF: 0 sertraline 50 mg tablet 50 mg PO DAILY RF: 0 insulin aspart U-100 [Novolog Flexpen U-100 Insulin] 100 unit/mL (3 mL) insulin pen 8 - 12 unit subcut TID RF: 0 calcium carbonate-vitamin D3 600 mg(1,500mg) -400 unit tablet 1 tab PO BID RF: 0 Lantus Solostar U-100 Insulin 100 unit/mL (3 mL) insulin pen 64 unit subcut DAILY RF: 0 lidocaine [Lidoderm] 5 % adhesive patch,medicated 1 patch topical DAILY Qty: 15 RF: 0 Veltassa 16.8 gram powder in packet 1 packet PO DAILY RF: 0 sucralfate [Carafate] 1 gram tablet 1 g PO BID Qty: 60 RF: 0 pantoprazole 40 mg tablet,delayed release (DR/EC) 40 mg PO DAILY Qty: 60 RF: 0 tamsulosin 0.4 mg Capsule 0.4 mg PO DAILY Qty: 30 RF: 0 Referrals: Alexys Avila MD [Primary Care Provider] - 2 days
[2021-09-09] MEDS: Fluorescein Sodium STRIP 1 STRIP EYE-LEFT (10:36)
[2021-09-09] MEDS: Tetracaine HCl/PF 0.5% Oph Sol 4 ML DROPS 3 DROP EYE-LEFT (10:37)
== END 2021-09-09 11:53 | disposition home or self-care (01) ==
PROVIDERS: Emergency Provider Emergency Medicine; PCP Internal Medicine
DX: H10.89 Other conjunctivitis (principal); E11.22 Type 2 diabetes mellitus with diabetic chronic kidney disease; I13.0 Hypertensive heart and chronic kidney disease with heart failure and stage 1 through stage 4 chronic kidney disease, or unspecified chronic kidney disease; N18.30 Chronic kidney disease, stage 3 unspecified; I50.9 Heart failure, unspecified; N17.9 Acute kidney failure, unspecified; E78.5 Hyperlipidemia, unspecified; Z79.02 Long term (current) use of antithrombotics/antiplatelets; Z79.82 Long term (current) use of aspirin; Z79.4 Long term (current) use of insulin; Z79.899 Other long term (current) drug therapy
CPT/HCPCS: 99283

== ENCOUNTER 2022-01-31 10:30 | Inpatient (IN) | payer OTHER, SELFPAY ==
[2022-01-31] VITALS (10 sets, daily range): BP systolic 113–175; BP diastolic 50–82; PULSE 65–88; RESP 14–20; TEMP 36.6–37; O2SAT 93–100; BMI 37.6
--- NOTE | ~2022-01-31 | XR_ITS ---
EXAMINATION: XR CHEST CLINICAL INFORMATION: Generalized weakness COMPARISON: Chest x-ray 08/16/2021 TECHNIQUE: 2 views of the chest were obtained. FINDINGS: Cardiac silhouette is normal in size. The lungs are well aerated. There is no lobar consolidation. No pleural effusion or pneumothorax. Degenerative changes of the spine. XR/XR chest 2V IMPRESSION: No acute pulmonary pathology.
--- NOTE | ~2022-01-31 | CT_ITS ---
EXAMINATION: CT ABDOMEN AND PELVIS WITHOUT CONTRAST CLINICAL INFORMATION: Abdominal pain and diarrhea. COMPARISON: CT of the abdomen and pelvis done on 02/25/2021. TECHNIQUE: Multidetector volumetric imaging was performed from the superior aspect of the liver through the pubic symphysis. Sagittal and coronal reformatted images were obtained on the technologist's workstation. This CT examination was performed using dose optimization techniques as appropriate, variously including the following: *Automated exposure control *Adjustment of mA and/or kV according to patient size (this includes techniques or standardized protocols for targeted exams where dose is matched to indication/reason for exam; i.e. extremities or head) *Use of iterative reconstruction technique DLP: 610 mGy-cm FINDINGS: LUNG BASES: Solitary sub-5 mm noncalcified lung nodule is noted within the right lower lobe posterolaterally at the level of the costophrenic sulcus (82:4), unchanged since 02/25/2021. Coronary arterial calcifications are present, unchanged. LIVER, GALLBLADDER, AND BILIARY TREE: The liver is normal in size, shape, and attenuation. No focal hepatic lesion or biliary ductal dilatation is present. Stable punctate sub-5 mm calcification is noted within the left lobe of the liver. The gallbladder is surgically absent. There is no evidence of any intrahepatic or extrahepatic biliary ductal dilatation present. PANCREAS: Unremarkable. SPLEEN: Unremarkable. ADRENAL GLANDS: Unremarkable. KIDNEYS AND URETERS: The kidneys are normal in size, shape, and attenuation. No hydronephrosis, hydroureter, or calculi seen. No perinephric stranding. BLADDER: Distended, likely physiologic. Please correlate clinically. GASTROINTESTINAL TRACT: The small and large bowel are unremarkable. The appendix is unremarkable. ABDOMINAL WALL: Postsurgical changes of prior lower anterior abdominal hernia repair is noted without evidence of any disease recurrence. LYMPH NODES: Normal. VASCULAR: Diffuse atherosclerotic disease of the aorta and is branches without aneurysm formation. PELVIC VISCERA: There is no pelvic mass present. No evidence of any free fluid and/or free air. OSSEOUS STRUCTURES: No suspicious focal lesion. CT/CT abdomen pelvis wo con IMPRESSION: 1. No CT evidence of any acute intra-abdominal and/or intrapelvic pathology is present. 2. Solitary sub-5 mm noncalcified stable right lower lobar lung nodule, unchanged since 02/25/2021. Fleischner guidelines were followed. According to the UPDATED 2017 Fleischner Society recommendations, the advised follow-up imaging for solid nodules < 6 mm is: LOW RISK PATIENT: No routine follow-up. HIGH RISK PATIENT: Optional CT at 12 months.
--- NOTE | 2022-01-31 11:15 | ECG_ITS ---
Test Reason : WEAKNESS Blood Pressure : / mmHG Vent. Rate : 066 BPM Atrial Rate : 066 BPM P-R Int : 178 ms QRS Dur : 140 ms QT Int : 496 ms P-R-T Axes : 062 -14 197 degrees QTc Int : 519 ms Normal sinus rhythm Left bundle branch block Abnormal ECG When compared with ECG of 16-AUG-2021 09:41, No significant change was found Referred By: Kadi Crawford Electronically Signed By:LUCRECIA PILLAI MD
--- NOTE | 2022-01-31 12:04 | ED.NAVMDI ---
HPI - Nausea/Vomiting/Diarrhea General Chief complaint: General Medical Stated complaint: GENERAL WEAKNESS,DIARRHEA X'S 2 WEEKS PER EMS Time Seen by Provider: 01/31/22 11:14 Source: patient Mode of arrival: EMS Limitations: language barrier (Japanese-speaking medical surgery nurse utilized) History of Present Illness HPI Narrative: Patient presents to the emergency department for evaluation of weakness and diarrhea. She reports ongoing diarrhea x2 weeks with multiple episodes a day. Some being soft ?like applesauce? others liquid/watery. All of which have been yellow in color. Denies bloody or dark stools. She has taken Imodium once a day but not every day over the past 2 weeks but did not notice any change. She states that she has a history of chronic diarrhea which presents similarly to this, however occurring case is more severe and she is feeling increasingly weak. Provides a vague history regarding a colonoscopy that she believes was less than 5 years ago but is unable to provide any further details in regards to this. She is nonambulatory at baseline, uses an electric wheelchair in her home. She does report a chronic cough with sputum production, no changes. fevers, chills, dizziness, lightheadedness, chest pain, palpitations, shortness of breath, difficulty breathing cough, nausea, vomiting, abdominal pain, dysuria urinary frequency/urgency. Related Data Home Medications Medication Instructions Recorded Confirmed amlodipine 2.5 mg tablet 2.5 mg PO QAM 06/20/21 01/31/22 aspirin 81 mg tablet,delayed 81 mg PO QPM 06/20/21 01/31/22 release atorvastatin 80 mg tablet 80 mg PO QPM 06/20/21 01/31/22 calcium carbonate 600 mg-vitamin 1 tab PO BID 06/20/21 01/31/22 D3 10 mcg (400 unit) tablet clopidogrel 75 mg tablet 75 mg PO QAM 06/20/21 01/31/22 gabapentin 100 mg capsule 100 mg PO BID 06/20/21 01/31/22 insulin aspart U-100 100 unit/mL 8 - 12 unit SUBCUT TID 06/20/21 01/31/22 (3 mL) subcutaneous pen (Novolog Flexpen U-100 Insulin aspart) insulin glargine 100 unit/mL (3 64 unit SUBCUT DAILY 06/20/21 01/31/22 mL) subcutaneous pen (Lantus Solostar U-100 Insulin) magnesium oxide 400 mg (241.3 mg 400 mg PO BID 06/20/21 01/31/22 magnesium) tablet sertraline 50 mg tablet 50 mg PO DAILY 06/20/21 01/31/22 trazodone 50 mg tablet 50 mg PO BEDTIME 06/20/21 01/31/22 furosemide 40 mg tablet 1 tab PO BID 01/31/22 01/31/22 hydralazine 10 mg tablet 1 tab PO BID 01/31/22 01/31/22 Previous Rx's Medication Instructions Recorded furosemide 40 mg tablet (Lasix) 40 mg PO BID 90 Days #180 tab 08/10/21 carvedilol 3.125 mg tablet 6.25 mg PO BID #90 tab 10/25/21 Allergies Allergy/AdvReac Type Severity Reaction Status Date / Time latex [LATEX] Allergy Intermediate ITCHY Verified 06/29/21 13:08 Review of Systems Review of Systems: Constitutional : No Weight loss, No Fever, No Chills ENT/Mouth :? No sore throat, No Rhinorrhea Eyes: No Swelling, No Redness Cardiovascular : No Chest Pain, No SOB, No Edema Respiratory : Positive Cough, positive Sputum, No Wheezing Gastrointestinal : No Nausea, no Vomiting, positive Diarrhea, no abdominal pain, No Hematochezia, No Melena Genitourinary : No Dysuria, No Urinary Frequency, No Hematuria, No Urgency? Musculoskeletal : No joint pain, No Myalgias, No Joint Swelling Skin : No Skin Lesions, No rash Neuro : No Weakness, No Numbness, No Dizziness, No Headache Psych : No Anxiety/Panic, No Depression Heme/Lymph: No Bruising, No Lymphadenopathy Endocrine : No Polyuria, No Polydipsia Yes all other systems are reviewed and are negative [facility] Past Medical History Attestation statement: The following information was validated with the patient. Source: old records reviewed Medical History Acute on chronic renal failure Acute respiratory failure with hypoxia Anemia Blister of finger without infection Cholecystectomy planned CKD (chronic kidney disease) CKD (chronic kidney disease), stage IV Congestive heart failure Diabetes Diabetes mellitus Elevated d-dimer Essential hypertension Gastroparesis GERD (gastroesophageal reflux disease) Hand pain Hernia HLD (hyperlipidemia) HTN (hypertension) Hypomagnesemia Irritable bowel syndrome with diarrhea Lightheadedness Low blood pressure Non-ST elevated myocardial infarction Nonischemic cardiomyopathy Other and unspecified hyperlipidemia Pharyngoesophageal dysphagia Type 2 diabetes mellitus with unspecified complications Surgical History H/O: hysterectomy History of esophagogastroduodenoscopy (EGD) Hx of colonoscopy Hx of eye surgery Family History Family History Father Lung cancer Mother Diabetes HTN (hypertension) Heart disease Sister Diabetes Heart disease Brother Heart disease Son Diabetes Daughter Diabetes Social History Social History Household Members: Family Household Members Other:: Daughter Housing: Apartment Do you presently have visiting nurse or other home services: Yes Unable to assess alcohol history related to: Unknown Alcohol intake: never Patient Tobacco Use Status: Never used Tobacco Advance Directives: No Advance Directives Information Provided: No service: No Current occupational status: disabled Physical Exam Vital Signs: Vital Signs: Last Vital Signs Temp 98.5 F 01/31/22 16:18 Pulse 87 01/31/22 16:18 Resp 19 01/31/22 16:18 BP 145/57 H 01/31/22 16:18 Pulse Ox 100 01/31/22 16:18 BMI result Body Mass Index 37.6 Vital signs have been reviewed as normal and appeared to be correct. Blood pressure normal.? Heart rate normal.? Respiration rate normal. Temperature normal.? Oxygen saturation normal. Appearance: Alert.?Oriented to person, place and time. No acute distress.?Normal affect. Eyes: Pupils equal, round and reactive to light.? ENT: Pharynx normal.?? Neck: Normal inspection.? Neck supple.?? CVS: Heart sounds normal. Normal heart rate and rhythm.? Pulses normal.?? Respiratory: No respiratory distress.? Lung sounds clear to auscultation bilaterally?? Abdomen: Soft and non-tender. Normoactive bowel sounds. No pulsatile mass.?? Skin: Skin warm and dry.? Normal skin color.? Extremities: No lower extremity edema.? No calf ttp? Neuro: Moves all extremities spontaneously. Sensation intact bilaterally. CN II-XII intact. No focal neuro deficits. Course Course Course Narrative: Patient is a 66-year-old female with a history of hyperkalemia, nonischemic cardiomyopathy, NSTEMI, congestive heart failure, CKD, CVA, type 2 diabetes, hypertension, hyperlipidemia, irritable bowel syndrome with diarrhea. Presents to the emergency department for evaluation of persistent diarrhea, worse from her chronic baseline. In addition she is having increased generalized weakness. Will obtain CBC to evaluate for leukocytosis/ anemia, CMP to evaluate for abnormal electrolytes /abnormal renal function/ abnormal hepatic function, EKG and troponin to evaluate for ischemia/ACS. Chest x-ray to evaluate for consolidation/ infiltrate/ mass/ pulmonary congestion. CT abd and pelvis. Stool sample for culture, WBC, ova and parasite, C diff. to evaluate for infection Reevaluation(s) Reevaluation #1: EKG reveals normal sinus rhythm with left bundle branch block and T-wave inversion in aVL, V4-V6, inversions in V4 - V6 appear new in comparison to EKG from August 2021. Denying chest pain, palpitations, shortness of breath. Troponin 21.5, which is lower than prior labs however will obtain repeat delta trop. Time: 12:43 Reevaluation #2: Critical hyperkalemia 7.1, glucose 155, order D50 50G IV, insulin regular 5 units IV, sodium bicarb 50 mEq IV, albuterol 10 mg nebulizer. BUN and creatinine of 45/3.39, increased from baseline CKD, 1 L normal saline IVF ordered. Mild leukocytosis 12.0, anemia consistent with baseline. COVID-19 and influenza testing are negative. Chest x-ray unremarkable for any acute findings. Time: 13:12 Reevaluation #3: CT of the abdomen reveals no evidence of acute intra-abdominal or intrapelvic pathology. Her diarrhea is most likely consistent with her irritable bowel syndrome, however she has been unable to provide a stool sample to send for further testing at this time. Repeat potassium of 6.[address] Waters who accepts patient for admission to medicine service. I spoke with patient and updated her on all findings and plan of care she is agreeable for admission. Time: 15:45 MDM - Nausea/Vomiting/Diarrhea Medical Records Attestation: I reviewed the patient's medical records. Lab Data Attestation: I reviewed the patient's lab results. Result diagrams: 01/31/22 12:04 01/31/22 14:59 Labs: Lab Results 01/31/22 01/31/22 01/31/22 Range/Units 12:02 12:02 12:04 WBC 12.0 H (4.8-10.8) X10*3/uL RBC 3.96 L (4.20-5.50) X10*6/uL Hgb 10.5 L (12.0-16.0) g/dl Hct 33.4 L (37.0-47.0) % MCV 84.3 (80.0-98.0) fL MCH 26.5 L (27.0-33.0) pg MCHC 31.4 (31.0-35.0) g/dl RDW 13.7 (11.0-16.0) % Plt Count 272 (160-400) X10*3/uL MPV 10.1 (9.4-12.3) fL Immature Gran % (Auto) 0.7 H (0.0-0.4) % Neut % (Auto) 75.9 H (45-73) % Lymph % (Auto) 18.4 L (20-40) % [place] % (Auto) 4.1 (2-11) % Eos % (Auto) 0.7 (0-4) % Baso % (Auto) 0.2 (0-2) % Lymph # (Auto) 2.2 (1.2-4.9) X10*3/uL [place] # (Auto) 0.5 (0.1-1.2) X10*3/uL Eos # (Auto) 0.1 (0.0-0.4) X10*3/uL Baso # (Auto) 0.0 (0.0-0.2) X10*3/uL Abs Immat Gran (auto) 0.08 H (0.00-0.03) X10*3/uL Absolute Neuts (auto) 9.1 H (2.0-8.3) x10*3/uL Absolute Nucleated RBC 0.000 (0.0-0.012) X10*3/uL Nucleated RBC % (auto) 0.0 (0.0-0.2) /100WBC Sodium (135-145) mmol/L Potassium (3.3-5.1) mmol/L Chloride (96-108) mmol/L Carbon Dioxide (22-29) mmol/L Anion Gap (12-20) BUN (9-16) mg/dL Creatinine (0.5-1.4) mg/dL Estim Creat Clear Calc Estimated GFR POC Glucose (60-115) mg/dL Random Glucose (60-115) mg/dL Calcium (8.4-10.2) mg/dL Magnesium (1.6-2.6) mg/dL Total Bilirubin (0.0-1.0) mg/dL AST (5-31) U/L ALT (0-31) U/L Alkaline Phosphatase (39-117) U/L Troponin I High Sens (<3.5-17.0) ng/L Total Protein (6.5-8.0) g/dL Albumin (3.5-5.0) g/dL COVID-19 (LUCIUS) Negative (Negative) COVID-19 Clin Com See Note Influenza Type A (IWONA) Negative (Negative) Influenza Type B (IWONA) Negative (Negative) Influenza A & B Note See Note 01/31/22 01/31/22 01/31/22 Range/Units 12:04 12:04 13:38 WBC (4.8-10.8) X10*3/uL RBC (4.20-5.50) X10*6/uL Hgb (12.0-16.0) g/dl Hct (37.0-47.0) % MCV (80.0-98.0) fL MCH (27.0-33.0) pg MCHC (31.0-35.0) g/dl RDW (11.0-16.0) % Plt Count (160-400) X10*3/uL MPV (9.4-12.3) fL Immature Gran % (Auto) (0.0-0.4) % Neut % (Auto) (45-73) % Lymph % (Auto) (20-40) % [place] % (Auto) (2-11) % Eos % (Auto) (0-4) % Baso % (Auto) (0-2) % Lymph # (Auto) (1.2-4.9) X10*3/uL [place] # (Auto) (0.1-1.2) X10*3/uL Eos # (Auto) (0.0-0.4) X10*3/uL Baso # (Auto) (0.0-0.2) X10*3/uL Abs Immat Gran (auto) (0.00-0.03) X10*3/uL Absolute Neuts (auto) (2.0-8.3) x10*3/uL Absolute Nucleated RBC (0.0-0.012) X10*3/uL Nucleated RBC % (auto) (0.0-0.2) /100WBC Sodium 134 L (135-145) mmol/L Potassium 7.0 H* D (3.3-5.1) mmol/L Chloride 107 (96-108) mmol/L Carbon Dioxide 17 L (22-29) mmol/L Anion Gap 17 (12-20) BUN 45 H (9-16) mg/dL Creatinine 3.39 H (0.5-1.4) mg/dL Estim Creat Clear Calc 14.3 Estimated GFR 13 POC Glucose 132 H (60-115) mg/dL Random Glucose 155 H (60-115) mg/dL Calcium 8.9 D (8.4-10.2) mg/dL Magnesium 2.2 (1.6-2.6) mg/dL Total Bilirubin 0.4 (0.0-1.0) mg/dL AST 19 (5-31) U/L ALT 14 (0-31) U/L Alkaline Phosphatase 162 H (39-117) U/L Troponin I High Sens 25.1 H (<3.5-17.0) ng/L Total Protein 7.9 (6.5-8.0) g/dL Albumin 3.7 (3.5-5.0) g/dL COVID-19 (LUCIUS) (Negative) COVID-19 Clin Com Influenza Type A (IWONA) (Negative) Influenza Type B (IWONA) (Negative) Influenza A & B Note 01/31/22 01/31/22 01/31/22 Range/Units 14:27 14:59 14:59 WBC (4.8-10.8) X10*3/uL RBC (4.20-5.50) X10*6/uL Hgb (12.0-16.0) g/dl Hct (37.0-47.0) % MCV (80.0-98.0) fL MCH (27.0-33.0) pg MCHC (31.0-35.0) g/dl RDW (11.0-16.0) % Plt Count (160-400) X10*3/uL MPV (9.4-12.3) fL Immature Gran % (Auto) (0.0-0.4) % Neut % (Auto) (45-73) % Lymph % (Auto) (20-40) % [place] % (Auto) (2-11) % Eos % (Auto) (0-4) % Baso % (Auto) (0-2) % Lymph # (Auto) (1.2-4.9) X10*3/uL [place] # (Auto) (0.1-1.2) X10*3/uL Eos # (Auto) (0.0-0.4) X10*3/uL Baso # (Auto) (0.0-0.2) X10*3/uL Abs Immat Gran (auto) (0.00-0.03) X10*3/uL Absolute Neuts (auto) (2.0-8.3) x10*3/uL Absolute Nucleated RBC (0.0-0.012) X10*3/uL Nucleated RBC % (auto) (0.0-0.2) /100WBC Sodium 136 (135-145) mmol/L Potassium 6.1 H* (3.3-5.1) mmol/L Chloride 109 H (96-108) mmol/L Carbon Dioxide 19 L (22-29) mmol/L Anion Gap 14 (12-20) BUN 43 H (9-16) mg/dL Creatinine 3.26 H (0.5-1.4) mg/dL Estim Creat Clear Calc 14.9 Estimated GFR 14 POC Glucose 310 H (60-115) mg/dL Random Glucose 290 H (60-115) mg/dL Calcium 8.2 L D (8.4-10.2) mg/dL Magnesium (1.6-2.6) mg/dL Total Bilirubin 0.3 (0.0-1.0) mg/dL AST 17 (5-31) U/L ALT 13 (0-31) U/L Alkaline Phosphatase 148 H (39-117) U/L Troponin I High Sens 25.4 H (<3.5-17.0) ng/L Total Protein 7.3 (6.5-8.0) g/dL Albumin 3.4 L (3.5-5.0) g/dL COVID-19 (LUCIUS) (Negative) COVID-19 Clin Com Influenza Type A (IWONA) (Negative) Influenza Type B (IWONA) (Negative) Influenza A & B Note Imaging Data Chest x-ray: Radiologist's impression: FINDINGS: Cardiac silhouette is normal in size. The lungs are well aerated. There is no lobar consolidation. No pleural effusion or pneumothorax. Degenerative changes of the spine. XR/XR chest 2V IMPRESSION: No acute pulmonary pathology. CT scan - abdomen: Radiologist's impression: CT/CT abdomen pelvis wo con IMPRESSION: ? 1. No CT evidence of any acute intra-abdominal and/or intrapelvic pathology is present. 2. Solitary sub-5 mm noncalcified stable right lower lobar lung nodule, unchanged since 02/25/2021. ECG Data Attestation: I personally reviewed and interpreted this ECG as follows: ECG interpretation date: 01/31/22 ECG interpretation time: 12:00 Interpretation: Rate: 66 Rhythm:? Sinus rhythm left bundle-branch block [place]:? Normal Normal P waves.? Normal DONNIE.?? Normal QRS complex.?? ST T wave :??T-wave inversions in aVL V4 V5 V6 qTC: prolonged, 519 prior studies:? August 2021 The study has been interpreted contemporaneously by me. Discharge Plan Discharge Clinical Impression: Acute hyperkalemia, Diarrhea, Generalized weakness Patient Disposition: Admitted As Inpatient Prescriptions: No Action furosemide [Lasix] 40 mg tablet 40 mg PO BID 90 Days Qty: 180 1RF carvedilol 3.125 mg tablet 6.25 mg PO BID Qty: 90 3RF Label Comments: patient cant confirm dose or med Rx Instructions: must administer with a meal/food atorvastatin 80 mg tablet 80 mg PO QPM 0RF trazodone 50 mg tablet 50 mg PO BEDTIME 0RF amlodipine 2.5 mg tablet 2.5 mg PO QAM 0RF clopidogrel 75 mg tablet 75 mg PO QAM 0RF aspirin 81 mg tablet,delayed release (DR/EC) 81 mg PO QPM 0RF magnesium oxide 400 mg (241.3 mg magnesium) tablet 400 mg PO BID 0RF gabapentin 100 mg capsule 100 mg PO BID 0RF sertraline 50 mg tablet 50 mg PO DAILY 0RF insulin aspart U-100 [Novolog Flexpen U-100 Insulin] 100 unit/mL (3 mL) insulin pen 8 - 12 unit subcut TID 0RF Rx Instructions: Sliding scale calcium carbonate-vitamin D3 600 mg(1,500mg) -400 unit tablet 1 tab PO BID 0RF Lantus Solostar U-100 Insulin 100 unit/mL (3 mL) insulin pen 64 unit subcut DAILY 0RF hydralazine 10 mg tablet 1 tab PO BID 0RF furosemide 40 mg tablet 1 tab PO BID 0RF
[2022-01-31 12:18] LABS: MANUAL DIFF FLAG NO
[2022-01-31 12:25] LABS: Basophils Percent Auto 0.2 % (0-2); Eosinophils Absolute Auto 0.1 X10*3/uL (0.0-0.4); Eosinophils Percent Auto 0.7 % (0-4); Hematocrit 33.4 % (37.0-47.0); Hemoglobin 10.5 g/dl (12.0-16.0); Imm Gran Abs Auto 0.08 X10*3/uL (0.00-0.03); Imm Gran Pct Auto 0.7 % (0.0-0.4); Lymphocytes Absolute Auto 2.2 X10*3/uL (1.2-4.9); Lymphocytes Percent Auto 18.4 % (20-40); Mean Corpuscular HGB Conc 31.4 g/dl (31.0-35.0); Mean Corpuscular Hemoglobin 26.5 pg (27.0-33.0); Mean Corpuscular Volume 84.3 fL (80.0-98.0); Mean Platelet Volume 10.1 fL (9.4-12.3); Monocytes Absolute Auto 0.5 X10*3/uL (0.1-1.2); Monocytes Percent Auto 4.1 % (2-11); Neutrophils Absolute Auto 9.1 x10*3/uL (2.0-8.3); Neutrophils Percent Auto 75.9 % (45-73); Platelet Count 272 X10*3/uL (160-400); Red Blood Count 3.96 X10*6/uL (4.20-5.50); Red Cell Distribution Width 13.7 % (11.0-16.0)
[2022-01-31 12:42] LABS: Troponin-I High Sensitivity 25.1 ng/L (<3.5-17.0)
[2022-01-31 12:44] LABS: Influenza A Negative (Negative); Influenza B2 Negative (Negative)
[2022-01-31 12:45] LABS: COVID-19 Test Negative (Negative); IDNOW Serial# 16C4AD1C
[2022-01-31 13:07] LABS: Alanine Aminotransferase 14 U/L (0-31); Albumin Level 3.7 g/dL (3.5-5.0); Alkaline Phosphatase 162 U/L (39-117); Anion Gap 17 (12-20); Aspartate Amino Transferase 19 U/L (5-31); Bilirubin Total 0.4 mg/dL (0.0-1.0); Blood Urea Nitrogen 45 mg/dL (9-16); Calcium 8.9 mg/dL (8.4-10.2); Carbon Dioxide 17 mmol/L (22-29); Chloride 107 mmol/L (96-108); Creatinine Clr Calc Pharmacy 14.3; Estimated Glomerular Filt Rate 13; Glucose Random 155 mg/dL (60-115); Magnesium 2.2 mg/dL (1.6-2.6); Sodium 134 mmol/L (135-145); Total Protein 7.9 g/dL (6.5-8.0)
[2022-01-31] MEDS: Dextrose 50 % 25 GM/50 ML SYRINGE IVPUSH (13:39)
[2022-01-31] MEDS: Sodium Bicarbonate 8.4% 50 MEQ/50 ML SYRINGE IVPUSH (13:39)
[2022-01-31] MEDS: Insulin Regular, Human 100 UNIT/ML 3 ML VIAL IVPUSH (13:40)
[2022-01-31 13:42] LABS: Glucose, Whole Blood 132 mg/dL (60-115)
[2022-01-31] MEDS: 0.9 % Sodium Chloride 1,000 ML 999 ML IV (13:47)
[2022-01-31 14:30] LABS: Glucose, Whole Blood 310 mg/dL (60-115)
--- NOTE | 2022-01-31 14:34 | PHA.MEDREC ---
Pharmacy Consult ? Medication Reconciliation Pharmacy has completed the medication reconciliation.
[2022-01-31] MEDS: Albuterol Sulfate (0.083%) 2.5 MG/3 ML VIAL.NEB 10 MG INHALE (15:04)
[2022-01-31 15:27] LABS: Troponin-I High Sensitivity 25.4 ng/L (<3.5-17.0)
[2022-01-31 15:39] LABS: Alanine Aminotransferase 13 U/L (0-31); Albumin Level 3.4 g/dL (3.5-5.0); Alkaline Phosphatase 148 U/L (39-117); Anion Gap 14 (12-20); Aspartate Amino Transferase 17 U/L (5-31); Bilirubin Total 0.3 mg/dL (0.0-1.0); Blood Urea Nitrogen 43 mg/dL (9-16); Calcium 8.2 mg/dL (8.4-10.2); Carbon Dioxide 19 mmol/L (22-29); Chloride 109 mmol/L (96-108); Creatinine Clr Calc Pharmacy 14.9; Estimated Glomerular Filt Rate 14; Glucose Random 290 mg/dL (60-115); Potassium 6.1 mmol/L (3.3-5.1); Sodium 136 mmol/L (135-145); Total Protein 7.3 g/dL (6.5-8.0)
[2022-01-31] MEDS: Calcium Gluconate/NaCl,Iso-Osm 2 GM/100 ML PLAST..BAG IV (15:54)
--- NOTE | 2022-01-31 16:00 | P.HPHOSP_ITS ---
History of Present Illness Date of Service: 01/31/22 Chief Complaint: Weakness and diarrhea. History obtained in [place] from the patient via helper animal laboratory 66yo woman with HFpEF, NICM, CKD3-4, hx CVA, HTN, HLD, DM2 s/p L BKA and multiple finger amputations, GERD, and gastroparesis. She presents today because of diarrhea that has been ongoing for nearly 2 weeks, at time mucussy but no blood, no associated abdominal pain, as result she has been feeling very weak, no recent travel, no fever or chills, no other household with similar disease. Of note she is also c/o of difficulty swallowing liquid or solid and I should note that She has had history of esophageal narrowing and has had balloon dilatations in the past most recently in 2020. Her baseline creatinine is about 2.8 and presently 3.26. Potassium is 6 and has been given calcium gluconate and insulin. Her troponin is 25 which is chronic. She has no chest pain and there is no significant EKG changes noted. Review of Systems Review of Systems: Gen: no fever Resp: no sob, no cough CV: no chest, no AWAD, no leg edema GI: No n/v, no abd pain, + diarrhea Neuro: No confusion [facility] Medical History Acute on chronic renal failure Acute respiratory failure with hypoxia Anemia Blister of finger without infection Cholecystectomy planned CKD (chronic kidney disease) CKD (chronic kidney disease), stage IV Congestive heart failure Diabetes Diabetes mellitus Elevated d-dimer Essential hypertension Gastroparesis GERD (gastroesophageal reflux disease) Hand pain Hernia HLD (hyperlipidemia) HTN (hypertension) Hypomagnesemia Irritable bowel syndrome with diarrhea Lightheadedness Low blood pressure Non-ST elevated myocardial infarction Nonischemic cardiomyopathy Other and unspecified hyperlipidemia Pharyngoesophageal dysphagia Type 2 diabetes mellitus with unspecified complications Family History Father Lung cancer Mother Diabetes HTN (hypertension) Heart disease Sister Diabetes Heart disease Brother Heart disease Son Diabetes Daughter Diabetes Surgical History H/O: hysterectomy History of esophagogastroduodenoscopy (EGD) Hx of colonoscopy Hx of eye surgery Social History Household Members: Family Household Members Other:: lives with dtr and grandson Housing: Unknown / Unable to assess Do you presently have visiting nurse or other home services: No Unable to assess alcohol history related to: Unable to respond Alcohol intake: never Patient Tobacco Use Status: Never used Tobacco Second Hand Smoke Exposure: No Currently Displaying Signs/Symptoms of Drug Intoxication Withdrawal: No Advance Directives: Yes Advance Directives on File: Yes Advance Directives Date on File: 02/02/22 Do you have thoughts of harming others: None Do you have a plan to hurt others: No Plan Recently lost weight without trying: No service: No Current occupational status: disabled Meds Allergies Allergy/AdvReac Type Severity Reaction Status Date / Time latex [LATEX] Allergy Intermediate ITCHY Verified 06/29/21 13:08 Active Medications: Current Medications Calcium Gluconate (Calcium Gluconate) 2 gm in 100 mls @ 50 mls/hr IV ONCE ONE Stop: 01/31/22 17:45 Last Admin: 01/31/22 15:54 Dose: 50 mls/hr Documented by: Pharmacy Consult (Consult Rx Perform Med Rec) 1 each MISCELLANE ONCE PRN PRN Reason: Consult order Home Medications Medication Instructions Recorded Confirmed Last Taken Type aspirin 81 mg tablet,delayed 81 mg PO BEDTIME 06/20/21 03/10/22 01/30/22 History release atorvastatin 80 mg tablet 80 mg PO BEDTIME 06/20/21 03/10/22 01/30/22 History calcium carbonate 600 mg-vitamin 1 tab PO BID 06/20/21 03/10/22 01/30/22 History D3 10 mcg (400 unit) tablet clopidogrel 75 mg tablet 75 mg PO DAILY 06/20/21 03/10/22 01/30/22 History gabapentin 100 mg capsule 100 mg PO BID 06/20/21 03/10/22 01/30/22 History magnesium oxide 400 mg (241.3 mg 400 mg PO BID 06/20/21 03/10/22 01/30/22 History magnesium) tablet sertraline 50 mg tablet 50 mg PO DAILY 06/20/21 03/10/22 01/30/22 History trazodone 50 mg tablet 50 mg PO BEDTIME 06/20/21 03/10/22 01/30/22 History hydralazine 10 mg tablet 1 tab PO BID 01/31/22 03/10/22 01/30/22 History insulin glargine 100 unit/mL (3 64 unit subcut DAILY 02/22/22 03/10/22 03/09/22 History mL) subcutaneous pen (Lantus Solostar U-100 Insulin) insulin lispro 100 unit/mL 8 - 12 unit subcut TIDAC 02/22/22 03/10/22 Unknown History subcutaneous pen (Humalog KwikPen (U-100) Insulin) sucralfate 1 gram tablet 1 g PO QIDACHS 02/22/22 03/10/22 Unknown History Physical Exam Vital Signs and Narrative: Vital Signs: Last Vital Signs Temp 98 F 01/31/22 10:43 Pulse 88 01/31/22 15:51 Resp 16 01/31/22 15:51 BP 165/82 H 01/31/22 15:51 Pulse Ox 100 01/31/22 15:51 BMI result Body Mass Index 37.6 Const: Other: Constitutional: Alert, in no distress Mental Status: Oriented to person, place and time. Eyes: Pupils are equal, round and reactive to light. Ear, Nose and Throat: Oropharynx clear, mucous membranes moist Respiratory: Clear to auscultation. No wheezing, rales or rhonchi. Cardiovascular: S1 S2 regular. No murmurs, rubs or gallops. Gastrointestinal: Abdomen soft, non-tender, non-distended. Normal bowel sounds.? Neurologic: Cranial nerves II-XII grossly intact. No focal neurological deficits. Moves all extremities spontaneously.? Skin: No rashes or lesions.? Musculoskeletal: No cyanosis or clubbing. has Left BKA Psychiatric: Normal mood and affect? Results Labs CBC and Chem 7: 02/03/22 06:25 02/03/22 06:25 Labs: Laboratory Results - last 24 hr 01/31/22 01/31/22 01/31/22 12:02 12:02 12:04 MCV 84.3 MCH 26.5 L MCHC 31.4 RDW 13.7 Plt Count 272 MPV 10.1 Immature Gran % (Auto) 0.7 H Neut % (Auto) 75.9 H Lymph % (Auto) 18.4 L [place] % (Auto) 4.1 Eos % (Auto) 0.7 Baso % (Auto) 0.2 Lymph # (Auto) 2.2 [place] # (Auto) 0.5 Eos # (Auto) 0.1 Baso # (Auto) 0.0 Abs Immat Gran (auto) 0.08 H Absolute Neuts (auto) 9.1 H Absolute Nucleated RBC 0.000 Nucleated RBC % (auto) 0.0 Anion Gap Estim Creat Clear Calc Estimated GFR POC Glucose Random Glucose Calcium Magnesium Total Bilirubin AST ALT Alkaline Phosphatase Troponin I High Sens Total Protein Albumin COVID-19 (LUCIUS) Negative COVID-19 Clin Com See Note Influenza Type A (IWONA) Negative Influenza Type B (IWONA) Negative Influenza A & B Note See Note 01/31/22 01/31/22 01/31/22 12:04 12:04 13:38 MCV MCH MCHC RDW Plt Count MPV Immature Gran % (Auto) Neut % (Auto) Lymph % (Auto) [place] % (Auto) Eos % (Auto) Baso % (Auto) Lymph # (Auto) [place] # (Auto) Eos # (Auto) Baso # (Auto) Abs Immat Gran (auto) Absolute Neuts (auto) Absolute Nucleated RBC Nucleated RBC % (auto) Anion Gap 17 Estim Creat Clear Calc 14.3 Estimated GFR 13 POC Glucose 132 H Random Glucose 155 H Calcium 8.9 D Magnesium 2.2 Total Bilirubin 0.4 AST 19 ALT 14 Alkaline Phosphatase 162 H Troponin I High Sens 25.1 H Total Protein 7.9 Albumin 3.7 COVID-19 (LUCIUS) COVID-19 Clin Com Influenza Type A (IWONA) Influenza Type B (IWONA) Influenza A & B Note 01/31/22 01/31/22 01/31/22 14:27 14:59 14:59 MCV MCH MCHC RDW Plt Count MPV Immature Gran % (Auto) Neut % (Auto) Lymph % (Auto) [place] % (Auto) Eos % (Auto) Baso % (Auto) Lymph # (Auto) [place] # (Auto) Eos # (Auto) Baso # (Auto) Abs Immat Gran (auto) Absolute Neuts (auto) Absolute Nucleated RBC Nucleated RBC % (auto) Anion Gap 14 Estim Creat Clear Calc 14.9 Estimated GFR 14 POC Glucose 310 H Random Glucose 290 H Calcium 8.2 L D Magnesium Total Bilirubin 0.3 AST 17 ALT 13 Alkaline Phosphatase 148 H Troponin I High Sens 25.4 H Total Protein 7.3 Albumin 3.4 L COVID-19 (LUCIUS) COVID-19 Clin Com Influenza Type A (IWONA) Influenza Type B (IWONA) Influenza A & B Note Imaging Radiologist's Impressions: Impressions Chest X-Ray 01/31/22 11:26 IMPRESSION: No acute pulmonary pathology. Abdomen/Pelvis CT 01/31/22 14:10 IMPRESSION: 1. No CT evidence of any acute intra-abdominal and/or intrapelvic pathology is present. 2. Solitary sub-5 mm noncalcified stable right lower lobar lung nodule, unchanged since 02/25/2021. Fleischner guidelines were followed. According to the UPDATED 2017 Fleischner Society recommendations, the advised follow-up imaging for solid nodules < 6 mm is: LOW RISK PATIENT: No routine follow-up. HIGH RISK PATIENT: Optional CT at 12 months. Assessment and Plan (1) Acute on chronic systolic and diastolic heart failure, NYHA class 3: Status: Acute (2) CKD (chronic kidney disease) stage 4, GFR 15-29 ml/min: Status: Acute Plan 66yo woman with HFpEF, NICM, CKD3-4, hx CVA, HTN, HLD, DM2 s/p L BKA and multiple finger amputations, GERD, gastroparesis, and likely esophageal dysmotility s/p dilations in past .? She presents with diarrhea, weakness and is found to have GIL, Hyperkalemia and also c/o dysphagia #Diarrhea x 2 weeks. Doubt C dif -Check Cdif, stool WBC and culture -Imodium if c dif negative # hyperK - admit to [facility], telemetry, give Lokelma, recheck potassium today and again in am, Nephrology consult for GIL as wee #GIL on CKD3, Pre renal due to diarrhea, IVF and recheck tomorrow # dysphagia - NPO, IVF, GI consult for possible EGD +/- dilation # HTN # NICM/chronic HFpEF - continue amlodipine, carvedilol, furosemide, hydralazine # HLD # prior CVA - hold ASA + clopidogrel for EGD in case of dilation/biopsy - continue atorvastatin, carvedilol # DM2 - basal/bolus insulin; decrease dosing as she will be NPO # mood disorder - continue sertraline + trazodone # neuropathy - continue gabapentin # VTE ppx - SCDs, no heparin/Lovenox given planned EGD # code - full Admission will span at least 2 midnight due to need for work up for dysphagia, treatment of GIL, hyperkalemia and will neeed cardiac monitoring, and this cannot be done in less acute setting Quality Stroke Does the patient have a stroke diagnosis?: No VTE Prior VTE?: No VTE Risk Level:: Medical - moderate - high VTE Device Contraindication: Treatment Not Tolerated VTE Drug Contraindication: N/A - Med Ordered
[2022-01-31] MEDS: Sodium Zirconium Cyclosilicate 10 GM POWD.PACK PO (16:19)
[2022-01-31 17:25] LABS: Appearance Urine HAZY; Color Urine YELLOW; Glucose Urine UA 100 MG/DL (NEG); Leukocyte Esterase Urine NEG (NEG); Nitrite Urine NEG (NEG); PH 5.5 (5.0-8.0); Specific Gravity - Urine 1.025 (1.005-1.025); UACC Culture Trigger NO; Urine Blood TRACE (NEG); Urine Ketones NEG (NEG); Urine Protein 2+ MG/DL (NEG-TRACE)
[2022-01-31 17:40] LABS: Bacteria Urine 4+ /LPF; Mucus Urine TRACE /LPF; RBC Urine 0-2 /HPF (0); Squamous Epithelial Cell Urine 1+ /LPF; UACC CULT YES
[2022-01-31 17:43] LABS: Glucose, Whole Blood 142 mg/dL (60-115)
[2022-01-31] MEDS: Clopidogrel Bisulfate 75 MG TABLET PO (17:44)
[2022-01-31] MEDS: amLODIPine Besylate 2.5 MG TABLET PO (17:44)
--- NOTE | 2022-01-31 17:54 | PC.NURSE ---
Pt remains alert and oriented x4, calm and cooperative. Pt denies pain. Denies abd costa, N/V. Since ot has been in ER she has not had a BM, no diarrhea. Pt voided and urine collected. IV intact. Vitals stable. POC 142 now, MD Starkey made aware. Pt remains NPO per MD orders. Pt educated on care of plan and being admitted. Pt agrees to plan of care, stated an understanding for NPO status. RN offered to call daughter to update her and pt stated not to at this time, pt gave consent to give information to Daughter if she called.
[2022-01-31 18:19] LABS: Anion Gap 15 (12-20); Anion Gap 16 (12-20); Blood Urea Nitrogen 43 mg/dL (9-16); Blood Urea Nitrogen 44 mg/dL (9-16); Calcium 9.1 mg/dL (8.4-10.2); Calcium 9.2 mg/dL (8.4-10.2); Carbon Dioxide 20 mmol/L (22-29); Chloride 107 mmol/L (96-108); Chloride 109 mmol/L (96-108); Creatinine Clr Calc Pharmacy 15.2; Creatinine Clr Calc Pharmacy 15.5; Estimated Glomerular Filt Rate 15; Glucose Fasting 200 mg/dL (60-99); Glucose Random 199 mg/dL (60-115); Potassium 5.6 mmol/L (3.3-5.1); Sodium 137 mmol/L (135-145); Sodium 138 mmol/L (135-145)
[2022-01-31] MEDS: hydrALAZINE HCl 10 MG TABLET PO (20:28)
[2022-01-31] MEDS: carvediloL 3.125 MG TABLET 6.25 MG PO (20:28)
[2022-01-31] MEDS: Furosemide 40 MG TABLET PO (20:28)
[2022-01-31] MEDS: Magnesium Oxide 400 MG TABLET PO (20:28)
[2022-01-31] MEDS: traZODone HCL 50 MG TABLET PO (20:29)
[2022-01-31] MEDS: Calcium + Vitamin D 250 MG TABLET 500 MG PO (20:29)
[2022-01-31] MEDS: Gabapentin 100 MG CAPSULE PO (20:29)
[2022-01-31] MEDS: Atorvastatin Calcium 80 MG TABLET PO (20:29)
[2022-01-31 21:09] LABS: Glucose, Whole Blood 160 mg/dL (60-115)
[2022-01-31] MEDS: Insulin Lispro 100 UNIT/ML 3 ML VIAL SUBCUT (21:09)
[2022-01-31] MEDS: Insulin Glargine,Hum.rec.anlog 100 UNIT/ML 10 ML VIAL 20 UNIT SUBCUT (21:09)
[2022-01-31] MEDS: Sodium Chloride 0.45 % 1,000 ML 100 ML IVCONT (23:54)
[2022-02-01] VITALS (10 sets, daily range): BP systolic 82–159; BP diastolic 51–82; PULSE 64–77; RESP 13–20; TEMP 36.6–37.1; O2SAT 94–98
--- NOTE | 2022-02-01 04:37 | PC.NURSE ---
Patient's VSS, resting at present. Will continue to monitor.
[2022-02-01 07:25] LABS: Glucose, Whole Blood 117 mg/dL (60-115)
[2022-02-01] MEDS: carvediloL 3.125 MG TABLET 6.25 MG PO (08:19)
[2022-02-01] MEDS: Calcium + Vitamin D 250 MG TABLET 500 MG PO ×2 (08:19→23:06)
[2022-02-01] MEDS: Clopidogrel Bisulfate 75 MG TABLET PO (08:20)
[2022-02-01] MEDS: Magnesium Oxide 400 MG TABLET PO ×2 (08:20→23:07)
[2022-02-01] MEDS: hydrALAZINE HCl 10 MG TABLET PO (08:20)
[2022-02-01] MEDS: Furosemide 40 MG TABLET PO (08:20)
[2022-02-01] MEDS: Gabapentin 100 MG CAPSULE PO ×2 (08:20→23:06)
[2022-02-01] MEDS: amLODIPine Besylate 2.5 MG TABLET PO (08:20)
[2022-02-01] MEDS: Sertraline HCL 50 MG TABLET PO (08:20)
[2022-02-01 08:27] LABS: Anion Gap 15 (12-20); Blood Urea Nitrogen 42 mg/dL (9-16); Calcium 9.3 mg/dL (8.4-10.2); Carbon Dioxide 19 mmol/L (22-29); Chloride 110 mmol/L (96-108); Creatinine Clr Calc Pharmacy 15.5; Estimated Glomerular Filt Rate 15; Glucose Random 116 mg/dL (60-115); Potassium 5.7 mmol/L (3.3-5.1); Sodium 138 mmol/L (135-145)
--- NOTE | 2022-02-01 09:40 | PC.NURSE ---
b/p running soft low 80s over low 40s checked on both arms. pt asymptomatic. Dr. Mixon aware. will continue to monitor.
--- NOTE | 2022-02-01 09:46 | P.PNIM_ITS ---
Subjective Subjective Date of Service: 02/01/22 Interval History: hyperkalemia ,dysphagia Review of Systems Complaining of dysphagia both liquid and solid. Softer blood pressure, diarrhea Denies chest pain or shortness of breath or nausea vomiting Physical Exam Vital Signs: Vital Signs: Last Vital Signs Temp 98.3 F 02/01/22 08:58 Pulse 69 02/01/22 08:58 Resp 18 02/01/22 08:58 BP 103/82 02/01/22 08:24 Pulse Ox 96 02/01/22 08:58 BMI result Body Mass Index 37.6 Appearance: Alert.? Oriented X3.? not in distress.? cvs: rrr, [id number] , no murmur res: clear to auscultation ,no rhonchii or wheezing abd: no rebound or guarding ,nt, bs present. ext pulses present , no cyanosis . neuro: axo3 , nonfocal. Objective Data Active Medications Acetaminophen (Acetaminophen 325 Mg Tablet) 650 mg PO Q6H PRN PRN Reason: Pain, Mild (Pain Scale 1-3) Amlodipine Besylate (Amlodipine Besylate 2.5 Mg Tablet) 2.5 mg PO DAILY [facility]; Protocol Last Admin: 02/01/22 08:20 Dose: 2.5 mg Documented by: VERONICA Atorvastatin Calcium (Atorvastatin Calcium 80 Mg Tablet) 80 mg PO BEDTIME [facility] Last Admin: 01/31/22 20:29 Dose: 80 mg Documented by: MARY Calcium Carbonate/Cholecalciferol (Calcium + Vitamin D 250 Mg Tablet) 500 mg PO BID [facility] Last Admin: 02/01/22 08:19 Dose: 500 mg Documented by: VERONICA Carvedilol (Carvedilol 3.125 Mg Tablet) 6.25 mg PO BID [facility]; Protocol Last Admin: 02/01/22 08:19 Dose: 6.25 mg Documented by: VERONICA Clopidogrel Bisulfate (Clopidogrel Bisulfate 75 Mg Tablet) 75 mg PO DAILY [facility] Last Admin: 02/01/22 08:20 Dose: 75 mg Documented by: VERONICA Furosemide (Furosemide 40 Mg Tablet) 40 mg PO BID [facility]; Protocol Last Admin: 02/01/22 08:20 Dose: 40 mg Documented by: VERONICA Gabapentin (Gabapentin 100 Mg Capsule) 100 mg PO BID [facility] Last Admin: 02/01/22 08:20 Dose: 100 mg Documented by: VERONICA Hydralazine HCl (Hydralazine Hcl 10 Mg Tablet) 10 mg PO BID [facility]; Protocol Last Admin: 02/01/22 08:20 Dose: 10 mg Documented by: VERONICA Sodium Chloride () 1,000 mls @ 100 mls/hr IVCONT .Q10H [facility] Last Admin: 02/01/22 04:17 Dose: Not Given Documented by: ROSA Non-Admin Reason: IV Running Sodium Chloride (Ns) 500 mls @ 250 mls/hr IVCONT .Q2H [facility] Stop: 02/01/22 11:44 Calcium Gluconate (Calcium Gluconate) 1 gm in 50 mls @ 50 mls/hr IV ONCE ONE Stop: 02/01/22 10:42 Insulin Glargine (Insulin Glargine,Hum.Rec.Anlog 100 Unit/Ml 10 Ml Vial) 20 unit SUBCUT BEDTIME [facility] Last Admin: 01/31/22 21:09 Dose: 20 unit Documented by: MARY Insulin Human Lispro (Insulin Lispro 100 Unit/Ml 3 Ml Vial) 0 unit SUBCUT QIDACHS [facility]; Protocol Last Admin: 02/01/22 07:56 Dose: Not Given Documented by: VERONICA Non-Admin Reason: No Insulin Coverage Insulin Human Lispro (Insulin Lispro 100 Unit/Ml 3 Ml Vial) 5 unit SUBCUT ONCE ONE Stop: 02/01/22 09:42 Magnesium Oxide (Magnesium Oxide 400 Mg Tablet) 400 mg PO BID [facility] Last Admin: 02/01/22 08:20 Dose: 400 mg Documented by: VERONICA Melatonin (Melatonin 3 Mg Tablet) 6 mg PO BEDTIME PRN PRN Reason: Insomnia Pharmacy Consult (Consult Rx Perform Med Rec) 1 each MISCELLANE ONCE PRN PRN Reason: Consult order Sertraline HCl (Sertraline Hcl 50 Mg Tablet) 50 mg PO DAILY [facility] Last Admin: 02/01/22 08:20 Dose: 50 mg Documented by: VERONICA Sodium Chloride (0.9 % Sodium Chloride Flush 3 Ml Syringe) 3 ml IVFLUSH QSHIFT [facility] Last Admin: 02/01/22 08:01 Dose: Not Given Documented by: VERONICA Non-Admin Reason: IV Running Trazodone HCl (Trazodone Hcl 50 Mg Tablet) 50 mg PO BEDTIME [facility] Last Admin: 01/31/22 20:29 Dose: 50 mg Documented by: MARY Labs CBC & Chem 7: 01/31/22 12:04 02/01/22 06:50 Labs: Laboratory Results - last 24 hr 01/31/22 01/31/22 01/31/22 12:02 12:02 12:04 MCV 84.3 MCH 26.5 L MCHC 31.4 RDW 13.7 Plt Count 272 MPV 10.1 Immature Gran % (Auto) 0.7 H Neut % (Auto) 75.9 H Lymph % (Auto) 18.4 L [place] % (Auto) 4.1 Eos % (Auto) 0.7 Baso % (Auto) 0.2 Lymph # (Auto) 2.2 [place]son # (Auto) 0.5 Eos # (Auto) 0.1 Baso # (Auto) 0.0 Abs Immat Gran (auto) 0.08 H Absolute Neuts (auto) 9.1 H Absolute Nucleated RBC 0.000 Nucleated RBC % (auto) 0.0 Anion Gap Estim Creat Clear Calc Estimated GFR POC Glucose Random Glucose Fasting Glucose Calcium Magnesium Total Bilirubin AST ALT Alkaline Phosphatase Troponin I High Sens Total Protein Albumin Urine Color Urine Appearance Urine pH Ur Specific [place] Urine Protein Urine Glucose (UA) Urine Ketones Urine Blood Urine Nitrite Ur Leukocyte Esterase Urine RBC Urine WBC Ur Squamous Epith Cells Urine Bacteria Granular Casts Urine Mucus COVID-19 (LUCIUS) Negative COVID-19 Clin Com See Note Influenza Type A (IWONA) Negative Influenza Type B (IWONA) Negative Influenza A & B Note See Note 01/31/22 01/31/22 01/31/22 12:04 12:04 13:38 MCV MCH MCHC RDW Plt Count MPV Immature Gran % (Auto) Neut % (Auto) Lymph % (Auto) Woodson % (Auto) Eos % (Auto) Baso % (Auto) Lymph # (Auto) [place]son # (Auto) Eos # (Auto) Baso # (Auto) Abs Immat Gran (auto) Absolute Neuts (auto) Absolute Nucleated RBC Nucleated RBC % (auto) Anion Gap 17 Estim Creat Clear Calc 14.3 Estimated GFR 13 POC Glucose 132 H Random Glucose 155 H Fasting Glucose Calcium 8.9 D Magnesium 2.2 Total Bilirubin 0.4 AST 19 ALT 14 Alkaline Phosphatase 162 H Troponin I High Sens 25.1 H Total Protein 7.9 Albumin 3.7 Urine Color Urine Appearance Urine pH Ur Specific [place] Urine Protein Urine Glucose (UA) Urine Ketones Urine Blood Urine Nitrite Ur Leukocyte Esterase Urine RBC Urine WBC Ur Squamous Epith Cells Urine Bacteria Granular Casts Urine Mucus COVID-19 (LUCIUS) COVID-19 Clin Com Influenza Type A (IWONA) Influenza Type B (IWONA) Influenza A & B Note 01/31/22 01/31/22 01/31/22 14:27 14:59 14:59 MCV MCH MCHC RDW Plt Count MPV Immature Gran % (Auto) Neut % (Auto) Lymph % (Auto) Woodson % (Auto) Eos % (Auto) Baso % (Auto) Lymph # (Auto) [place]son # (Auto) Eos # (Auto) Baso # (Auto) Abs Immat Gran (auto) Absolute Neuts (auto) Absolute Nucleated RBC Nucleated RBC % (auto) Anion Gap 14 Estim Creat Clear Calc 14.9 Estimated GFR 14 POC Glucose 310 H Random Glucose 290 H Fasting Glucose Calcium 8.2 L D Magnesium Total Bilirubin 0.3 AST 17 ALT 13 Alkaline Phosphatase 148 H Troponin I High Sens 25.4 H Total Protein 7.3 Albumin 3.4 L Urine Color Urine Appearance Urine pH Ur Specific [place] Urine Protein Urine Glucose (UA) Urine Ketones Urine Blood Urine Nitrite Ur Leukocyte Esterase Urine RBC Urine WBC Ur Squamous Epith Cells Urine Bacteria Granular Casts Urine Mucus COVID-19 (LUCIUS) COVID-19 Clin Com Influenza Type A (IWONA) Influenza Type B (IWONA) Influenza A & B Note 01/31/22 01/31/22 01/31/22 17:20 17:37 17:54 MCV MCH MCHC RDW Plt Count MPV Immature Gran % (Auto) Neut % (Auto) Lymph % (Auto) Woodson % (Auto) Eos % (Auto) Baso % (Auto) Lymph # (Auto) [place] # (Auto) Eos # (Auto) Baso # (Auto) Abs Immat Gran (auto) Absolute Neuts (auto) Absolute Nucleated RBC Nucleated RBC % (auto) Anion Gap 15 Estim Creat Clear Calc 15.2 Estimated GFR 15 POC Glucose 142 H Random Glucose Not Reportable Fasting Glucose 200 H Calcium 9.2 D Magnesium Total Bilirubin AST ALT Alkaline Phosphatase Troponin I High Sens Total Protein Albumin Urine Color YELLOW Urine Appearance HAZY Urine pH 5.5 Ur Specific [place] 1.025 Urine Protein 2+ H Urine Glucose (UA) 100 H Urine Ketones NEG Urine Blood TRACE Urine Nitrite NEG Ur Leukocyte Esterase NEG Urine RBC 0-2 Urine WBC 5-9 H Ur Squamous Epith Cells 1+ Urine Bacteria 4+ Granular Casts 1-4 Urine Mucus TRACE COVID-19 (LUCIUS) COVID-19 Clin Com Influenza Type A (IWONA) Influenza Type B (IWONA) Influenza A & B Note 01/31/22 01/31/22 02/01/22 17:54 21:04 06:50 MCV MCH MCHC RDW Plt Count MPV Immature Gran % (Auto) Neut % (Auto) Lymph % (Auto) [place]son % (Auto) Eos % (Auto) Baso % (Auto) Lymph # (Auto) [place]son # (Auto) Eos # (Auto) Baso # (Auto) Abs Immat Gran (auto) Absolute Neuts (auto) Absolute Nucleated RBC Nucleated RBC % (auto) Anion Gap 16 15 Estim Creat Clear Calc 15.5 15.5 Estimated GFR 15 15 POC Glucose 160 H Random Glucose 199 H 116 H Fasting Glucose Calcium 9.1 9.3 Magnesium Total Bilirubin AST ALT Alkaline Phosphatase Troponin I High Sens Total Protein Albumin Urine Color Urine Appearance Urine pH Ur Specific [place] Urine Protein Urine Glucose (UA) Urine Ketones Urine Blood Urine Nitrite Ur Leukocyte Esterase Urine RBC Urine WBC Ur Squamous Epith Cells Urine Bacteria Granular Casts Urine Mucus COVID-19 (LUCIUS) COVID-19 Clin Com Influenza Type A (IWONA) Influenza Type B (IWONA) Influenza A & B Note 02/01/22 07:16 MCV MCH MCHC RDW Plt Count MPV Immature Gran % (Auto) Neut % (Auto) Lymph % (Auto) Woodson % (Auto) Eos % (Auto) Baso % (Auto) Lymph # (Auto) [place] # (Auto) Eos # (Auto) Baso # (Auto) Abs Immat Gran (auto) Absolute Neuts (auto) Absolute Nucleated RBC Nucleated RBC % (auto) Anion Gap Estim Creat Clear Calc Estimated GFR POC Glucose 117 H Random Glucose Fasting Glucose Calcium Magnesium Total Bilirubin AST ALT Alkaline Phosphatase Troponin I High Sens Total Protein Albumin Urine Color Urine Appearance Urine pH Ur Specific [place] Urine Protein Urine Glucose (UA) Urine Ketones Urine Blood Urine Nitrite Ur Leukocyte Esterase Urine RBC Urine WBC Ur Squamous Epith Cells Urine Bacteria Granular Casts Urine Mucus COVID-19 (LUCIUS) COVID-19 Clin Com Influenza Type A (IWONA) Influenza Type B (IWONA) Influenza A & B Note Assessment and Plan (1) Dysphagia: Status: Acute (2) Diarrhea: Status: Acute (3) Hyperkalemia: Status: Acute Plan 66yo woman with HFpEF, NICM, CKD3-4, hx CVA, HTN, HLD, DM2 s/p L BKA and multiple finger amputations, GERD, gastroparesis, and likely esophageal dysmotility s/p dilations in past .? She presents with diarrhea, weakness and is found to have GIL, Hyperkalemia and also c/o dysphagia Diarrhea x 2 weeks. Doubt C dif -Check Cdif, stool WBC and culture -Imodium if c dif negative hyperK - admit to [facility], telemetry, give Lokelma,insulin /dextrose , calcium gluconate - recheck potassium now , Nephrology consult for GIL/hyperkalemia. GIL on CKD3, Pre renal? due to diarrhea, IVF and recheck tomorrow dysphagia - NPO, IVF, GI consult for possible EGD +/- dilation HTN/ NICM/chronic HFpEF - continue amlodipine, carvedilol, furosemide, hydralazine HLD prior CVA - hold ASA + clopidogrel for EGD in case of dilation/biopsy - continue atorvastatin, carvedilol DM2 - basal/bolus insulin; decrease dosing as she will be NPO mood disorder - continue sertraline + trazodone neuropathy - continue gabapentin VTE ppx - SCDs, no heparin/Lovenox given planned EGD Quality Stroke Does the patient have a stroke diagnosis?: No VTE Prior VTE?: No VTE Risk Level:: Medical - moderate - high VTE Device Contraindication: Treatment Not Tolerated VTE Drug Contraindication: Treatment Not Indicated
--- NOTE | 2022-02-01 09:54 | MHC.CM.PN ---
CM met with Patient at bedside and addressed IMM with her with the assist of [facility] Fun House Operator (original IMM given to Patient and a copy placed on the chart). 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 Home/no services is the goal and CM has initiated and will follow for dc planning. PCP is Dr. Gillis and Patient has received J&J covid vax X1.
--- NOTE | 2022-02-01 10:00 | PC.NURSE ---
new orders received from Dr. Mixon. b/p stable, pt asymptomatic. 3 episodes of loose stools incontinent care done. meds given as documented. will continue to monitor. NPO status maintained.
--- NOTE | 2022-02-01 11:08 | PM.GICN ---
History of Present Illness Data of Consult Service Date: 02/01/22 Requesting physician: Ori 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 She may have 3-4 motions a day and has been using pads. Denies abdominal pain, no recent travel, no fever or chills, no other household contacts with similar sx. PEr daughter she has had low sugars and falls, she is scared to eat due to the dysphagia and diarrhea. She has also been coughing a lot. she is also c/o of difficulty swallowing liquid or solid. She had an EGD 08/22 with dialtion of UES to 12 mm with some resistance felt. The GEj was lax. She felt this helped her for about a month at least. She has had an MRI 06/22 with chronic lacunar infarcts and thalamic damage and ischemic changes. Her baseline creatinine is about 2.8 and was 3.26 on admission.? Potassium is 6 and has been given calcium gluconate and insulin.? Her troponin is 25 which is chronic.? She has no chest pain and there is no significant EKG changes noted. CT w/o contrast done this admission without any acute findings, nml pancreas intestines . Review of Systems Review of Systems: Constitutional : No Weight loss, No Fever, No Chills ENT/Mouth : + sore throat, No Rhinorrhea Eyes: No Swelling, No Redness Cardiovascular : No Chest Pain, No SOB, No Edema Respiratory : No Cough, No Sputum, No Wheezing Gastrointestinal : see HPI Genitourinary : NO Dysuria, No Urinary Frequency, No Hematuria, No Urgency Musculoskeletal : No joint pain, No Myalgias, No Joint Swelling Skin : No Skin Lesions, No rash Neuro : + Weakness, No Numbness, No Dizziness, No Headache Psych : No Anxiety/Panic, No Depression Heme/Lymph: No Bruising, No Lymphadenopathy Endocrine : No Polyuria, No Polydipsia All other systems reviewed and are negative. [facility] Past Medical History Medical History Acute on chronic renal failure Acute respiratory failure with hypoxia Anemia Blister of finger without infection Cholecystectomy planned CKD (chronic kidney disease) CKD (chronic kidney disease), stage IV Congestive heart failure Diabetes Diabetes mellitus Elevated d-dimer Essential hypertension Gastroparesis GERD (gastroesophageal reflux disease) Hand pain Hernia HLD (hyperlipidemia) HTN (hypertension) Hypomagnesemia Irritable bowel syndrome with diarrhea Lightheadedness Low blood pressure Non-ST elevated myocardial infarction Nonischemic cardiomyopathy Other and unspecified hyperlipidemia Pharyngoesophageal dysphagia Type 2 diabetes mellitus with unspecified complications Family History Family History Father Lung cancer Mother Diabetes HTN (hypertension) Heart disease Sister Diabetes Heart disease Brother Heart disease Son Diabetes Daughter Diabetes Surgical History Surgical History H/O: hysterectomy History of esophagogastroduodenoscopy (EGD) Hx of colonoscopy Hx of eye surgery Social History Social History Household Members: Family Household Members Other:: Daughter Housing: Apartment Do you presently have visiting nurse or other home services: Yes Unable to assess alcohol history related to: Unknown Alcohol intake: never Patient Tobacco Use Status: Never used Tobacco Advance Directives: No Advance Directives Information Provided: No service: No Current occupational status: disabled Meds Allergies Allergy/AdvReac Type Severity Reaction Status Date / Time latex [LATEX] Allergy Intermediate ITCHY Verified 06/29/21 13:08 Active Medications: Current Medications Acetaminophen (Acetaminophen 325 Mg Tablet) 650 mg PO Q6H PRN PRN Reason: Pain, Mild (Pain Scale 1-3) Amlodipine Besylate (Amlodipine Besylate 2.5 Mg Tablet) 2.5 mg PO DAILY [facility]; Protocol Last Admin: 02/01/22 08:20 Dose: 2.5 mg Documented by: Atorvastatin Calcium (Atorvastatin Calcium 80 Mg Tablet) 80 mg PO BEDTIME [facility] Last Admin: 01/31/22 20:29 Dose: 80 mg Documented by: Calcium Carbonate/Cholecalciferol (Calcium + Vitamin D 250 Mg Tablet) 500 mg PO BID [facility] Last Admin: 02/01/22 08:19 Dose: 500 mg Documented by: Carvedilol (Carvedilol 3.125 Mg Tablet) 6.25 mg PO BID [facility]; Protocol Last Admin: 02/01/22 08:19 Dose: 6.25 mg Documented by: Clopidogrel Bisulfate (Clopidogrel Bisulfate 75 Mg Tablet) 75 mg PO DAILY [facility] Last Admin: 02/01/22 08:20 Dose: 75 mg Documented by: Furosemide (Furosemide 40 Mg Tablet) 40 mg PO BID [facility]; Protocol Last Admin: 02/01/22 08:20 Dose: 40 mg Documented by: Gabapentin (Gabapentin 100 Mg Capsule) 100 mg PO BID [facility] Last Admin: 02/01/22 08:20 Dose: 100 mg Documented by: Hydralazine HCl (Hydralazine Hcl 10 Mg Tablet) 10 mg PO BID [facility]; Protocol Last Admin: 02/01/22 08:20 Dose: 10 mg Documented by: Sodium Chloride () 1,000 mls @ 100 mls/hr IVCONT .Q10H [facility] Last Admin: 02/01/22 04:17 Dose: Not Given Documented by: Sodium Chloride (Ns) 500 mls @ 250 mls/hr IVCONT .Q2H [facility] Stop: 02/01/22 11:44 Insulin Glargine (Insulin Glargine,Hum.Rec.Anlog 100 Unit/Ml 10 Ml Vial) 20 unit SUBCUT BEDTIME [facility] Last Admin: 01/31/22 21:09 Dose: 20 unit Documented by: Insulin Human Lispro (Insulin Lispro 100 Unit/Ml 3 Ml Vial) 0 unit SUBCUT QIDACHS [facility]; Protocol Last Admin: 02/01/22 07:56 Dose: Not Given Documented by: Magnesium Oxide (Magnesium Oxide 400 Mg Tablet) 400 mg PO BID [facility] Last Admin: 02/01/22 08:20 Dose: 400 mg Documented by: Melatonin (Melatonin 3 Mg Tablet) 6 mg PO BEDTIME PRN PRN Reason: Insomnia Pharmacy Consult (Consult Rx Perform Med Rec) 1 each MISCELLANE ONCE PRN PRN Reason: Consult order Sertraline HCl (Sertraline Hcl 50 Mg Tablet) 50 mg PO DAILY [facility] Last Admin: 02/01/22 08:20 Dose: 50 mg Documented by: Sodium Chloride (0.9 % Sodium Chloride Flush 3 Ml Syringe) 3 ml IVFLUSH QSHIFT [facility] Last Admin: 02/01/22 08:01 Dose: Not Given Documented by: Trazodone HCl (Trazodone Hcl 50 Mg Tablet) 50 mg PO BEDTIME [facility] Last Admin: 01/31/22 20:29 Dose: 50 mg Documented by: Home Medications Medication Instructions Recorded Confirmed Last Taken Type amlodipine 2.5 mg tablet 2.5 mg PO QAM 06/20/21 01/31/22 01/30/22 History aspirin 81 mg tablet,delayed 81 mg PO QPM 06/20/21 01/31/22 01/30/22 History release atorvastatin 80 mg tablet 80 mg PO QPM 06/20/21 01/31/22 01/30/22 History calcium carbonate 600 mg-vitamin 1 tab PO BID 06/20/21 01/31/22 01/30/22 History D3 10 mcg (400 unit) tablet clopidogrel 75 mg tablet 75 mg PO QAM 06/20/21 01/31/22 01/30/22 History gabapentin 100 mg capsule 100 mg PO BID 06/20/21 01/31/22 01/30/22 History insulin aspart U-100 100 unit/mL 8 - 12 unit SUBCUT TID 06/20/21 01/31/22 01/30/22 History (3 mL) subcutaneous pen (Novolog Flexpen U-100 Insulin aspart) insulin glargine 100 unit/mL (3 64 unit SUBCUT DAILY 06/20/21 01/31/22 01/30/22 History mL) subcutaneous pen (Lantus Solostar U-100 Insulin) magnesium oxide 400 mg (241.3 mg 400 mg PO BID 06/20/21 01/31/22 01/30/22 History magnesium) tablet sertraline 50 mg tablet 50 mg PO DAILY 06/20/21 01/31/22 01/30/22 History trazodone 50 mg tablet 50 mg PO BEDTIME 06/20/21 01/31/22 01/30/22 History furosemide 40 mg tablet 1 tab PO BID 01/31/22 01/31/22 01/30/22 History hydralazine 10 mg tablet 1 tab PO BID 01/31/22 01/31/22 01/30/22 History Physical Exam Vital Signs: Vital Signs: Last Vital Signs Temp 98.3 F 02/01/22 08:58 Pulse 69 02/01/22 08:58 Resp 18 02/01/22 08:58 BP 103/82 02/01/22 08:24 Pulse Ox 96 02/01/22 08:58 BMI result Body Mass Index 37.6 EXAM: GENERAL: The patient is obese, frail appearing VITAL SIGNS:see workflow HEENT: Nonicteric sclerae, PERRLA, EOMI. Oropharynx clear. Moist mucous membranes. Conjunctivae appear well perfused. No thyroid mass. CHEST: Chest wall is nontender. HEART: Regular rate and rhythm without murmurs. LUNGS: Clear to auscultation bilaterally. ABDOMEN: Soft, positive bowel sounds, nontender, no organomegaly.no flank tenderness SKIN: No rash, no excessive bruising, petechiae, or purpura. NEUROLOGIC: Cranial nerves II-XII intact without motor/sensory deficit. MS: normal Psych: normal affect Results Labs CBC & Chem 7: 01/31/22 12:04 02/01/22 06:50 Labs: Short CBC 01/31/22 Range/Units 12:04 WBC 12.0 H (4.8-10.8) X10*3/uL Hgb 10.5 L (12.0-16.0) g/dl Hct 33.4 L (37.0-47.0) % Plt Count 272 (160-400) X10*3/uL BMP 01/31/22 01/31/22 01/31/22 12:04 14:59 17:54 Sodium 134 L 136 138 Potassium 7.0 H* D 6.1 H* 5.6 H Chloride 107 109 H 109 H Carbon Dioxide 17 L 19 L 20 L BUN 45 H 43 H 44 H Creatinine 3.39 H 3.26 H 3.18 H Calcium 8.9 D 8.2 L D 9.2 D 01/31/22 02/01/22 17:54 06:50 Sodium 137 138 Potassium 5.6 H 5.7 H Chloride 107 110 H Carbon Dioxide 20 L 19 L BUN 43 H 42 H Creatinine 3.13 H 3.14 H Calcium 9.1 9.3 Liver Function 01/31/22 01/31/22 Range/Units 12:04 14:59 Total Bilirubin 0.4 0.3 (0.0-1.0) mg/dL AST 19 17 (5-31) U/L ALT 14 13 (0-31) U/L Alkaline Phosphatase 162 H 148 H (39-117) U/L Albumin 3.7 3.4 L (3.5-5.0) g/dL Urine 01/31/22 Range/Units 17:20 Urine Color YELLOW Urine Appearance HAZY Urine pH 5.5 (5.0-8.0) Ur Specific [place] 1.025 (1.005-1.025) Urine Protein 2+ H (NEG-TRACE) MG/DL Urine Glucose (UA) 100 H (NEG) MG/DL Imaging CT scan - abdomen: Attestation: I personally reviewed and interpreted this imaging study as follows: My impression: atherosclerosis, spinal degeneration Assessment and Plan (1) Diarrhea: Status: Acute (2) Dysphagia: Status: Acute Plan 1/ Dysphagia, possible due to cricothyroid achalasia, vs GERD related spasm, peptic stricture or oral pharyngeal dysphagia from hx of multiple TIA/CVA 2/ Diarrhea, many causes possible, need to r/o c diff, ddx: microsocpic colitis, neoplasia, medication SE, SIBO, CHO intolerance, pancreatic insufficiency PLAN: 1/ Await C diff 2/ if c diff neg then CT with PO contrast 3/ EGD tomorrow with dilation, since she felt it helped in the past 4/ Might consider colonoscopy depending on above testing or at least a sigmoidoscopy Procedures Date of Service Date of Service: 02/01/22
[2022-02-01] MEDS: Dextrose 50 % 25 GM/50 ML SYRINGE IVPUSH (11:17)
[2022-02-01] MEDS: 0.9 % Sodium Chloride 500 ML 250 ML IVCONT (11:18)
[2022-02-01 11:46] LABS: CDiff Gene PCR NEGATIVE (Negative)
[2022-02-01] MEDS: Calcium Gluconate/NaCl,Iso-Osm 1 GM/50 ML PLAST..BAG IV (12:10)
--- NOTE | 2022-02-01 12:20 | PC.NURSE ---
pt alert and oriented. no sob/headache/dizziness. no abdominal pain, no nausea. b/p 146/51. 2 episodes of loose stools. pt resting quietly, no apparent distress. will continue to monitor.
[2022-02-01 12:30] LABS: Glucose, Whole Blood 179 mg/dL (60-115)
[2022-02-01] MEDS: Insulin Regular, Human 100 UNIT/ML 3 ML VIAL IVPUSH (12:37)
[2022-02-01] MEDS: Insulin Lispro 100 UNIT/ML 3 ML VIAL SUBCUT (13:58)
[2022-02-01] MEDS: Sodium Chloride 0.45 % 1,000 ML 100 ML IVCONT (14:01)
[2022-02-01 14:12] LABS: Leukocytes Stool Qualitative FEW: < 2/OIF (NEGATIVE)
--- NOTE | 2022-02-01 16:30 | PM.PNNEP ---
Subjective Subjective Date of Service: 02/01/22 Interval history: seen and examined Physical Exam Vital Signs: Vital Signs: Last Vital Signs Temp 97.9 F 02/01/22 16:12 Pulse 73 02/01/22 16:12 Resp 18 02/01/22 16:12 BP 159/59 H 02/01/22 16:12 Pulse Ox 95 02/01/22 16:12 BMI result Body Mass Index 37.6 Objective Data Labs CBC & Chem 7: 01/31/22 12:04 02/01/22 06:50 Labs: Laboratory Results - last 24 hr 01/31/22 01/31/22 01/31/22 17:20 17:37 17:54 Sodium 138 Potassium 5.6 H Chloride 109 H Carbon Dioxide 20 L Anion Gap 15 BUN 44 H Creatinine 3.18 H Estim Creat Clear Calc 15.2 Estimated GFR 15 POC Glucose 142 H Random Glucose Not Reportable Fasting Glucose 200 H Calcium 9.2 D Urine Color YELLOW Urine Appearance HAZY Urine pH 5.5 Ur Specific [place] 1.025 Urine Protein 2+ H Urine Glucose (UA) 100 H Urine Ketones NEG Urine Blood TRACE Urine Nitrite NEG Ur Leukocyte Esterase NEG Urine RBC 0-2 Urine WBC 5-9 H Ur Squamous Epith Cells 1+ Urine Bacteria 4+ Granular Casts 1-4 Urine Mucus TRACE Stool Leukocytes, Qual C. difficile Tox B Gene 01/31/22 01/31/22 02/01/22 17:54 21:04 06:50 Sodium 137 138 Potassium 5.6 H 5.7 H Chloride 107 110 H Carbon Dioxide 20 L 19 L Anion Gap 16 15 BUN 43 H 42 H Creatinine 3.13 H 3.14 H Estim Creat Clear Calc 15.5 15.5 Estimated GFR 15 15 POC Glucose 160 H Random Glucose 199 H 116 H Fasting Glucose Calcium 9.1 9.3 Urine Color Urine Appearance Urine pH Ur Specific [place] Urine Protein Urine Glucose (UA) Urine Ketones Urine Blood Urine Nitrite Ur Leukocyte Esterase Urine RBC Urine WBC Ur Squamous Epith Cells Urine Bacteria Granular Casts Urine Mucus Stool Leukocytes, Qual C. difficile Tox B Gene 02/01/22 02/01/22 02/01/22 07:16 10:43 10:43 Sodium Potassium Chloride Carbon Dioxide Anion Gap BUN Creatinine Estim Creat Clear Calc Estimated GFR POC Glucose 117 H Random Glucose Fasting Glucose Calcium Urine Color Urine Appearance Urine pH Ur Specific [place] Urine Protein Urine Glucose (UA) Urine Ketones Urine Blood Urine Nitrite Ur Leukocyte Esterase Urine RBC Urine WBC Ur Squamous Epith Cells Urine Bacteria Granular Casts Urine Mucus Stool Leukocytes, Qual FEW: < 2/OIF C. difficile Tox B Gene NEGATIVE 02/01/22 12:27 Sodium Potassium Chloride Carbon Dioxide Anion Gap BUN Creatinine Estim Creat Clear Calc Estimated GFR POC Glucose 179 H Random Glucose Fasting Glucose Calcium Urine Color Urine Appearance Urine pH Ur Specific [place] Urine Protein Urine Glucose (UA) Urine Ketones Urine Blood Urine Nitrite Ur Leukocyte Esterase Urine RBC Urine WBC Ur Squamous Epith Cells Urine Bacteria Granular Casts Urine Mucus Stool Leukocytes, Qual C. difficile Tox B Gene Microbiology Microbiology Results: Microbiology 01/31/22 17:15 Urine clean catch - Urine chery top Urine Culture - Final Procedures Date of Service Date of Service: 02/01/22 Assessment & Plan Assessment and plan (1) GIL (acute kidney injury): Status: Acute (2) Hyperkalemia: Status: Acute (3) CKD (chronic kidney disease) stage 4, GFR 15-29 ml/min: Status: Acute Plan mild GIL due to renal hypoperfusion elevated serum potassium multifactorial: -compromised distal flow -type IV RTA known severe CKD baseline Scr ~ 2.6-2.8 mg/dl REC IVF x 1 L then discontinue hold loop diuretics sodium bicarbonate 650 mg bid sodium zirconium 5 gram daily follow kidney function and electrolytes Time Spent With Patient Time: Total time spent is greater than 50% in coordination of care (as documented) at patient's floor/unit and/or counseling patient: Progress Note: Quality Stroke Does the patient have a stroke diagnosis?: No
[2022-02-01 17:30] LABS: Potassium 5.6 mmol/L (3.3-5.1)
[2022-02-01 18:26] LABS: Glucose, Whole Blood 84 mg/dL (60-115)
[2022-02-01] MEDS: Sodium Zirconium Cyclosilicate 10 GM POWD.PACK PO (18:48)
--- NOTE | 2022-02-01 20:00 | PC.NURSE ---
Assumed care of pt Pt had episode of incontience of urine and stool Pt cleaned and provided with new linen and gown Pt tolerated well Will continue to monitor
[2022-02-01 20:52] LABS: Glucose, Whole Blood 88 mg/dL (60-115)
[2022-02-01] MEDS: traZODone HCL 50 MG TABLET PO (23:06)
[2022-02-01] MEDS: Atorvastatin Calcium 80 MG TABLET PO (23:06)
--- NOTE | 2022-02-01 23:30 | PC.NURSE ---
Pt medicated per NOV Pt tolerated well Held insulin lispro and lantus with ok from Dr. Malave for BG [address] Malave, start pt on D5LR and recheck BG in 1 hour.
[2022-02-01] MEDS: Dextrose 5 % and Lactated Ring 1,000 ML 80 ML IVCONT (23:50)
[2022-02-02] VITALS (9 sets, daily range): BP systolic 108–162; BP diastolic 39–99; PULSE 66–82; RESP 14–18; TEMP 36.3–37.1; O2SAT 96–100
[2022-02-02 01:57] LABS: Glucose, Whole Blood 113 mg/dL (60-115)
[2022-02-02 07:22] LABS: Anion Gap 13 (12-20); Blood Urea Nitrogen 34 mg/dL (9-16); Calcium 8.8 mg/dL (8.4-10.2); Carbon Dioxide 18 mmol/L (22-29); Chloride 110 mmol/L (96-108); Creatinine Clr Calc Pharmacy 17.2; Estimated Glomerular Filt Rate 17; Glucose Random 159 mg/dL (60-115); Sodium 136 mmol/L (135-145)
[2022-02-02 08:03] LABS: Glucose, Whole Blood 151 mg/dL (60-115)
[2022-02-02] MEDS: Clopidogrel Bisulfate 75 MG TABLET PO (09:12)
[2022-02-02] MEDS: Magnesium Oxide 400 MG TABLET PO ×2 (09:12→20:54)
[2022-02-02] MEDS: Gabapentin 100 MG CAPSULE PO ×2 (09:12→20:54)
[2022-02-02] MEDS: Calcium + Vitamin D 250 MG TABLET 500 MG PO ×2 (09:12→20:54)
[2022-02-02] MEDS: Sertraline HCL 50 MG TABLET PO (09:12)
--- NOTE | 2022-02-02 09:18 | P.PNIM_ITS ---
Subjective Subjective Date of Service: 02/02/22 Interval History: Dysphagia, hyperkalemia Review of Systems Complaining of dysphagia both liquid and solid,diarrhea still present. Denies chest pain or shortness of breath? or nausea vomiting Physical Exam Vital Signs: Vital Signs: Last Vital Signs Temp 98.1 F 02/02/22 08:57 Pulse 71 02/02/22 08:57 Resp 14 02/02/22 08:57 BP 129/39 L 02/02/22 08:57 Pulse Ox 96 02/02/22 08:57 BMI result Body Mass Index 37.6 Appearance: Alert.? Oriented X3.? not in distress.? cvs: rrr, [id number] . res: clear to auscultation ,no rhonchii or wheezing abd: no rebound or guarding ,nt, bs present. ext pulses present , no cyanosis . neuro: axo3 , nonfocal. Objective Data Active Medications Acetaminophen (Acetaminophen 325 Mg Tablet) 650 mg PO Q6H PRN PRN Reason: Pain, Mild (Pain Scale 1-3) Amlodipine Besylate (Amlodipine Besylate 2.5 Mg Tablet) 2.5 mg PO DAILY [facility]; Protocol Last Admin: 02/01/22 08:20 Dose: 2.5 mg Documented by: VERONICA Atorvastatin Calcium (Atorvastatin Calcium 80 Mg Tablet) 80 mg PO BEDTIME [facility] Last Admin: 02/01/22 23:06 Dose: 80 mg Documented by: TERESA Calcium Carbonate/Cholecalciferol (Calcium + Vitamin D 250 Mg Tablet) 500 mg PO BID [facility] Last Admin: 02/02/22 09:12 Dose: 500 mg Documented by: ROLF Carvedilol (Carvedilol 3.125 Mg Tablet) 6.25 mg PO BID [facility]; Protocol Last Admin: 02/01/22 08:19 Dose: 6.25 mg Documented by: VERONICA Clopidogrel Bisulfate (Clopidogrel Bisulfate 75 Mg Tablet) 75 mg PO DAILY [facility] Last Admin: 02/02/22 09:12 Dose: 75 mg Documented by: ROLF Furosemide (Furosemide 40 Mg Tablet) 40 mg PO BID [facility]; Protocol Last Admin: 02/01/22 08:20 Dose: 40 mg Documented by: VERONICA Gabapentin (Gabapentin 100 Mg Capsule) 100 mg PO BID [facility] Last Admin: 02/02/22 09:12 Dose: 100 mg Documented by: ROLF Hydralazine HCl (Hydralazine Hcl 10 Mg Tablet) 10 mg PO BID [facility]; Protocol Last Admin: 02/01/22 08:20 Dose: 10 mg Documented by: VERONICA Dextrose/Lactated Ringer's (D5lr) 1,000 mls @ 80 mls/hr IVCONT .[id number] [facility] Last Admin: 02/01/22 23:50 Dose: 80 mls/hr Documented by: TERESA Insulin Glargine (Insulin Glargine,Hum.Rec.Anlog 100 Unit/Ml 10 Ml Vial) 20 unit SUBCUT BEDTIME [facility] Last Admin: 02/01/22 23:08 Dose: Not Given Documented by: TERESA Non-Admin Reason: No Insulin Coverage Insulin Human Lispro (Insulin Lispro 100 Unit/Ml 3 Ml Vial) 0 unit SUBCUT QIDACHS [facility]; Protocol Last Admin: 02/02/22 09:11 Dose: Not Given Documented by: ROLF Non-Admin Reason: NPO Magnesium Oxide (Magnesium Oxide 400 Mg Tablet) 400 mg PO BID [facility] Last Admin: 02/02/22 09:12 Dose: 400 mg Documented by: ROLF Melatonin (Melatonin 3 Mg Tablet) 6 mg PO BEDTIME PRN PRN Reason: Insomnia Pharmacy Consult (Consult Rx Perform Med Rec) 1 each MISCELLANE ONCE PRN PRN Reason: Consult order Sertraline HCl (Sertraline Hcl 50 Mg Tablet) 50 mg PO DAILY [facility] Last Admin: 02/02/22 09:12 Dose: 50 mg Documented by: ROLF Sodium Chloride (0.9 % Sodium Chloride Flush 3 Ml Syringe) 3 ml IVFLUSH QSHIFT [facility] Last Admin: 02/02/22 09:11 Dose: Not Given Documented by: ROLF Non-Admin Reason: IV Running Trazodone HCl (Trazodone Hcl 50 Mg Tablet) 50 mg PO BEDTIME [facility] Last Admin: 02/01/22 23:06 Dose: 50 mg Documented by: TERESA Labs CBC & Chem 7: 01/31/22 12:04 02/02/22 06:51 Labs: Laboratory Results - last 24 hr 05/12/2102/01/22 02/01/22 10:43 10:43 12:27 Anion Gap Estim Creat Clear Calc Estimated GFR POC Glucose 179 H Random Glucose Calcium Stool Leukocytes, Qual FEW: < 2/OIF C. difficile Tox B Gene NEGATIVE 02/01/22 02/01/22 02/02/22 18:17 20:33 01:53 Anion Gap Estim Creat Clear Calc Estimated GFR POC Glucose 84 88 113 Random Glucose Calcium Stool Leukocytes, Qual C. difficile Tox B Gene 02/02/22 02/02/22 06:51 07:57 Anion Gap 13 Estim Creat Clear Calc 17.2 Estimated GFR 17 POC Glucose 151 H Random Glucose 159 H Calcium 8.8 Stool Leukocytes, Qual C. 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 She presents with diarrhea, weakness and is found to have GIL, Hyperkalemia and also c/o dysphagia Diarrhea x 2 weeks. Doubt C diff Check Cdif, stool WBC-neg , and stool culture-pending No CT evidence of any acute intra-abdominal and/or intrapelvic pathology is present. started Imodium because c diff negative ?hyperK: possible related GIL and RTA4. GIL on CKD3, Pre renal? due to diarrhea, improving cr near baseline continue gentle hydration until started eating and diarrhea improves. ?dysphagia - NPO, IVF, GI consult for possible EGD +/- dilation HTN/ NICM/chronic HFpEF - continue amlodipine, carvedilol, furosemide, hydralazine ?HLD ?prior CVA - hold ASA + clopidogrel for EGD in case of dilation/biopsy - continue atorvastatin, carvedilol ?DM2 - basal/bolus insulin; decrease dosing as she will be NPO ?mood disorder - continue sertraline + trazodone neuropathy - continue gabapentin VTE ppx - SCDs, no heparin/Lovenox given planned EGD need for inpatient-dysphagia , diarrahae,gil Quality Stroke Does the patient have a stroke diagnosis?: No VTE Prior VTE?: No VTE Risk Level:: Medical - moderate - high VTE Device Contraindication: Treatment Not Tolerated VTE Drug Contraindication: Treatment Not Indicated
--- NOTE | 2022-02-02 10:00 | P.CDIC_ITS ---
CDI Concurrent Query Documentation Clarification: PHYSICIAN'S DOCUMENTATION REQUEST Date of Query: 02/02/22 1000 Patient Name: Debbie Guerra Admit Date: 01/31/22 Dear Doctor, A review of the medical record indicates additional documentation may be needed. Please review below and update the documentation accordingly. Risk Factors/Clinical Indicators/Treatments BMI 37.6 4' 10 in height If possible, please provide an associated diagnosis related to the abnormal BMI, such as: For a BMI >= 40: * Overweight * Obesity * Due to excess calories * Drug induced * Due to other cause * Severe or Morbid Obesity * With alveolar hypoventilation * Without alveolar hypoventilation Or: * BMI is not significant * Other (please specify) * Unable to determine Use of terms such as suspected, likely, concern for, or probable (associated with a specific diagnosis that is being evaluated, monitored, or treated as if it exists) are acceptable and can be coded in the inpatient setting, when documented at the time of discharge. Thank you, Kylie Alonso [facility], CDIS Extension: [phone] Please use your independent medical judgment in providing your response. THIS QUERY IS PART OF THE PERMANENT MEDICAL RECORD Provider Response: Other Other Diagnosis: morbid obesity
--- NOTE | 2022-02-02 10:00 | MHC.CDI.CONC ---
CDI Concurrent Query Documentation Clarification: PHYSICIAN'S DOCUMENTATION REQUEST Date of Query: 02/02/22 1000 Patient Name: Debbie Guerra Admit Date: 01/31/22 Dear Doctor, A review of the medical record indicates additional documentation may be needed. Please review below and update the documentation accordingly. Risk Factors/Clinical Indicators/Treatments BMI 37.6 4' 10 in height If possible, please provide an associated diagnosis related to the abnormal BMI, such as: For a BMI >= 40: Overweight Obesity Due to excess calories Drug induced Due to other cause Severe or Morbid Obesity With alveolar hypoventilation Without alveolar hypoventilation Or: BMI is not significant Other (please specify) Unable to determine Use of terms such as suspected, likely, concern for, or probable (associated with a specific diagnosis that is being evaluated, monitored, or treated as if it exists) are acceptable and can be coded in the inpatient setting, when documented at the time of discharge. Thank you, Kylie Alonso [facility], CDIS Extension: [phone] Please use your independent medical judgment in providing your response. THIS QUERY IS PART OF THE PERMANENT MEDICAL RECORD Provider Response: Other Other Diagnosis: morbid obesity
--- NOTE | 2022-02-02 10:56 | PM.PNNEP ---
Subjective Subjective Date of Service: 02/02/22 Interval history: seen and examined discussed with medical attending Physical Exam Vital Signs: Vital Signs: Last Vital Signs Temp 98.1 F 02/02/22 08:57 Pulse 71 02/02/22 08:57 Resp 14 02/02/22 08:57 BP 129/39 L 02/02/22 08:57 Pulse Ox 96 02/02/22 08:57 BMI result Body Mass Index 37.6 Const: General: no acute distress HEENT: Head: Yes normocephalic and Yes atraumatic Neck: Neck: Yes supple Resp: Auscultation: diminished lung sounds Cardio: Heart sounds: S1 normal heart sound present and S2 normal heart sound present GI: Palpation (GI): Soft to palpation and nontender Extrem: General: Yes normal to inspection Objective Data Labs CBC & Chem 7: 01/31/22 12:04 02/02/22 06:51 Labs: Laboratory Results - last 24 hr 02/01/22 02/01/22 02/01/22 10:43 10:43 12:27 Sodium Potassium Chloride Carbon Dioxide Anion Gap BUN Creatinine Estim Creat Clear Calc Estimated GFR POC Glucose 179 H Random Glucose Calcium Stool Leukocytes, Qual FEW: < 2/OIF C. difficile Tox B Gene NEGATIVE 02/01/22 02/01/22 02/01/22 17:00 18:17 20:33 Sodium Potassium 5.6 H Chloride Carbon Dioxide Anion Gap BUN Creatinine Estim Creat Clear Calc Estimated GFR POC Glucose 84 88 Random Glucose Calcium Stool Leukocytes, Qual C. difficile Tox B Gene 02/02/22 02/02/22 02/02/22 01:53 06:51 07:57 Sodium 136 Potassium 5.0 Chloride 110 H Carbon Dioxide 18 L Anion Gap 13 BUN 34 H Creatinine 2.82 H Estim Creat Clear Calc 17.2 Estimated GFR 17 POC Glucose 113 151 H Random Glucose 159 H Calcium 8.8 Stool Leukocytes, Qual C. difficile Tox B Gene Microbiology Microbiology Results: Microbiology 01/31/22 17:15 Urine clean catch - Urine chery top Urine Culture - Final Procedures Date of Service Date of Service: 02/02/22 Assessment & Plan Assessment and plan (1) GIL (acute kidney injury): Status: Acute (2) Hyperkalemia: Status: Acute (3) CKD (chronic kidney disease) stage 4, GFR 15-29 ml/min: Status: Acute Plan kidney function at baseline mild GIL due to renal hypoperfusion resolved elevated serum potassium multifactorial: -compromised distal flow -type IV RTA known severe CKD baseline Scr ~ 2.6-2.8 mg/dl REC discontinue IVF resume home dose loop diuretics in am sodium bicarbonate 650 mg bid sodium zirconium 5 gram thrice weekly in o/p setting follow kidney function and electrolytes Time Spent With Patient Time: Total time spent is greater than 50% in coordination of care (as documented) at patient's floor/unit and/or counseling patient: Progress Note: Quality Stroke Does the patient have a stroke diagnosis?: No
--- NOTE | 2022-02-02 11:50 | CONS_ITS ---
DATE OF SERVICE: 02/01/2022 HISTORY OF PRESENT ILLNESS: This is a 66-year-old patient with a history of severe Crohn disease, who presented to the hospital with weakness and diarrhea, found to have elevated serum potassium and worsening kidney function. The patient initially presented to the hospital because of diarrhea that she reports for at least 2 weeks. She denies any chest pain or shortness of breath. There is no report of fever, chills, abdominal pain, nausea, or vomiting. She was noted to have elevated serum potassium and was subsequently given calcium gluconate, insulin. PAST MEDICAL HISTORY: Remarkable for chronic kidney disease stage 4, diabetes mellitus, hypertension, coronary artery disease, dyslipidemia, GERD, congestive heart failure, hernia, gastroparesis. PAST SURGICAL HISTORY: Notable for hysterectomy, colonoscopy, eye surgery. MEDICATIONS: As an outpatient included amlodipine, aspirin, atorvastatin, calcium carbonate, gabapentin, magnesium, sertraline, trazodone, furosemide, hydralazine. ALLERGIES: SHE IS NOT ALLERGIC TO MEDICATIONS. SOCIAL HISTORY: She does not smoke. FAMILY HISTORY: Negative for kidney disease. REVIEW OF SYSTEMS: 10-point review of system negative except for pertinent in History of Present Illness. PHYSICAL EXAMINATION: VITAL SIGNS: Blood pressure is 115/59, heart rate 73, respiratory rate 18, temperature 97.9. CONSTITUTIONAL: Looks her stated age. No acute distress. NEUROLOGIC: Alert, awake. HEENT: Head is atraumatic, normocephalic. NECK: Supple. LUNGS: Decreased breath sounds. CARDIOVASCULAR: S1, S2. No rub. ABDOMEN: Soft, nontender. EXTREMITIES: No peripheral edema. LABORATORY DATA: Showed a sodium 138, potassium 5.7, chloride 110, CO2 of 19, BUN 42, creatinine 3.14. White count 12, hemoglobin 10.5, platelet count 272. IMPRESSION: 1. Acute kidney injury. 2. Hyperkalemia. 3. Chronic kidney disease stage 4. PLAN: This is a patient with mild acute kidney injury due to renal hypoperfusion. She has an elevated serum potassium, probably due to a combination of compromised distal flow and a type 4 renal tubular acidosis. She is known to have severe chronic kidney disease due to diabetic and hypertensive nephrosclerosis with a baseline serum creatinine range of 2.6 to 2.8 mg/dL. I would give her IV fluid no more than 1 L and then discontinue IV fluids and hold her loop diuretics. We will have her on sodium bicarbonate 650 mg twice a day, sodium zirconium 5 mg daily, and we will continue to follow closely her kidney function and electrolytes. Thank you for allowing me to participate in the care of the patient. MD KACEY Gonzalez/MODL / [id number]
[2022-02-02] MEDS: Dextrose 5 % and Lactated Ring 1,000 ML 80 ML IVCONT (11:59)
--- NOTE | 2022-02-02 13:43 | HO.ANESPROP2 ---
[facility] Active Problems Active Problems: All Active Problems (Updated 02/01/22 @ 16:31 by Leo Monroe MD) CKD (chronic kidney disease) stage 4, GFR 15-29 ml/min (Acute) Dysphagia (Acute) Diarrhea (Acute) Generalized weakness (Acute) Dysphagia (Acute) Hyperkalemia (Acute) Acute renal failure (Acute) Acute congestive heart failure (Acute) CKD (chronic kidney disease) stage 3, GFR 30-59 ml/min (Acute) GIL (acute kidney injury) (Acute) Cerebral infarction (Acute) Acute CVA (cerebrovascular accident) (Acute) Acute hyperkalemia (Acute ~06/2021) Past Medical History Medical History Acute on chronic renal failure Acute respiratory failure with hypoxia Anemia Blister of finger without infection Cholecystectomy planned CKD (chronic kidney disease) CKD (chronic kidney disease), stage IV Congestive heart failure Diabetes Diabetes mellitus Elevated d-dimer Essential hypertension Gastroparesis GERD (gastroesophageal reflux disease) Hand pain Hernia HLD (hyperlipidemia) HTN (hypertension) Hypomagnesemia Irritable bowel syndrome with diarrhea Lightheadedness Low blood pressure Non-ST elevated myocardial infarction Nonischemic cardiomyopathy Other and unspecified hyperlipidemia Pharyngoesophageal dysphagia Type 2 diabetes mellitus with unspecified complications Family History Family History Father Lung cancer Mother Diabetes HTN (hypertension) Heart disease Sister Diabetes Heart disease Brother Heart disease Son Diabetes Daughter Diabetes Family history of problems with anesthesia: No Surgical History Surgical History H/O: hysterectomy History of esophagogastroduodenoscopy (EGD) Hx of colonoscopy Hx of eye surgery History of Problems with Anesthesia: No Social History Social History Household Members: Family Household Members Other:: Daughter Housing: Apartment Do you presently have visiting nurse or other home services: No Unable to assess alcohol history related to: Unknown Alcohol intake: never Patient Tobacco Use Status: Never used Tobacco Advance Directives Date on File: 02/02/22 service: No Current occupational status: disabled Meds Allergies Allergy/AdvReac Type Severity Reaction Status Date / Time latex [LATEX] Allergy Intermediate ITCHY Verified 06/29/21 13:08 Active Medications: Current Medications Acetaminophen (Acetaminophen 325 Mg Tablet) 650 mg PO Q6H PRN PRN Reason: Pain, Mild (Pain Scale 1-3) Amlodipine Besylate (Amlodipine Besylate 2.5 Mg Tablet) 2.5 mg PO DAILY [facility]; Protocol Last Admin: 02/01/22 08:20 Dose: 2.5 mg Documented by: Atorvastatin Calcium (Atorvastatin Calcium 80 Mg Tablet) 80 mg PO BEDTIME [facility] Last Admin: 02/01/22 23:06 Dose: 80 mg Documented by: Calcium Carbonate/Cholecalciferol (Calcium + Vitamin D 250 Mg Tablet) 500 mg PO BID [facility] Last Admin: 02/02/22 09:12 Dose: 500 mg Documented by: Carvedilol (Carvedilol 3.125 Mg Tablet) 6.25 mg PO BID [facility]; Protocol Last Admin: 02/01/22 08:19 Dose: 6.25 mg Documented by: Clopidogrel Bisulfate (Clopidogrel Bisulfate 75 Mg Tablet) 75 mg PO DAILY [facility] Last Admin: 02/02/22 09:12 Dose: 75 mg Documented by: Furosemide (Furosemide 40 Mg Tablet) 40 mg PO BID [facility]; Protocol Last Admin: 02/01/22 08:20 Dose: 40 mg Documented by: Gabapentin (Gabapentin 100 Mg Capsule) 100 mg PO BID [facility] Last Admin: 02/02/22 09:12 Dose: 100 mg Documented by: Hydralazine HCl (Hydralazine Hcl 10 Mg Tablet) 10 mg PO BID [facility]; Protocol Last Admin: 02/01/22 08:20 Dose: 10 mg Documented by: Dextrose/Lactated Ringer's (D5lr) 1,000 mls @ 80 mls/hr IVCONT .[id number] [facility] Last Admin: 02/02/22 11:59 Dose: 80 mls/hr Documented by: Insulin Glargine (Insulin Glargine,Hum.Rec.Anlog 100 Unit/Ml 10 Ml Vial) 20 unit SUBCUT BEDTIME [facility] Last Admin: 02/01/22 23:08 Dose: Not Given Documented by: Insulin Human Lispro (Insulin Lispro 100 Unit/Ml 3 Ml Vial) 0 unit SUBCUT QIDACHS [facility]; Protocol Last Admin: 02/02/22 09:11 Dose: Not Given Documented by: Loperamide HCl (Loperamide Hcl 2 Mg Capsule) 2 mg PO Q4H PRN PRN Reason: Diarrhea Magnesium Oxide (Magnesium Oxide 400 Mg Tablet) 400 mg PO BID [facility] Last Admin: 02/02/22 09:12 Dose: 400 mg Documented by: Melatonin (Melatonin 3 Mg Tablet) 6 mg PO BEDTIME PRN PRN Reason: Insomnia Pharmacy Consult (Consult Rx Perform Med Rec) 1 each MISCELLANE ONCE PRN PRN Reason: Consult order Sertraline HCl (Sertraline Hcl 50 Mg Tablet) 50 mg PO DAILY [facility] Last Admin: 02/02/22 09:12 Dose: 50 mg Documented by: Sodium Chloride (0.9 % Sodium Chloride Flush 3 Ml Syringe) 3 ml IVFLUSH QSHIFT [facility] Last Admin: 02/02/22 09:11 Dose: Not Given Documented by: Trazodone HCl (Trazodone Hcl 50 Mg Tablet) 50 mg PO BEDTIME [facility] Last Admin: 02/01/22 23:06 Dose: 50 mg Documented by: Home Medications Medication Instructions Recorded Confirmed Last Taken Type amlodipine 2.5 mg tablet 2.5 mg PO [facility] 06/20/21 01/31/22 01/30/22 History aspirin 81 mg tablet,delayed 81 mg PO QPM 06/20/21 01/31/22 01/30/22 History release atorvastatin 80 mg tablet 80 mg PO QPM 06/20/21 01/31/22 01/30/22 History calcium carbonate 600 mg-vitamin 1 tab PO BID 06/20/21 01/31/22 01/30/22 History D3 10 mcg (400 unit) tablet clopidogrel 75 mg tablet 75 mg PO [facility] 06/20/21 01/31/22 01/30/22 History gabapentin 100 mg capsule 100 mg PO BID 06/20/21 01/31/22 01/30/22 History insulin aspart U-100 100 unit/mL 8 - 12 unit SUBCUT TID 06/20/21 01/31/22 01/30/22 History (3 mL) subcutaneous pen (Novolog Flexpen U-100 Insulin aspart) insulin glargine 100 unit/mL (3 64 unit SUBCUT DAILY 06/20/21 01/31/22 01/30/22 History mL) subcutaneous pen (Lantus Solostar U-100 Insulin) magnesium oxide 400 mg (241.3 mg 400 mg PO BID 06/20/21 01/31/22 01/30/22 History magnesium) tablet sertraline 50 mg tablet 50 mg PO DAILY 06/20/21 01/31/22 01/30/22 History trazodone 50 mg tablet 50 mg PO BEDTIME 06/20/21 01/31/22 01/30/22 History furosemide 40 mg tablet 1 tab PO BID 01/31/22 01/31/22 01/30/22 History hydralazine 10 mg tablet 1 tab PO BID 01/31/22 01/31/22 01/30/22 History Exam Exam Date and Time: February 02, 2022 1343 Height,Weight and Vital Signs: Height 4 ft 10 in Weight 81.647 kg Last Vital Signs Temp 97.3 F 02/02/22 13:28 Pulse 73 02/02/22 13:28 Resp 18 02/02/22 13:28 BP 141/99 H 02/02/22 13:28 Pulse Ox 98 02/02/22 13:28 Pertinent Lab Results Pertinent Lab Results: Laboratory Tests 01/31/22 01/31/22 01/31/22 12:02 12:02 12:04 WBC 12.0 H RBC 3.96 L Hgb 10.5 L Hct 33.4 L MCV 84.3 MCH 26.5 L MCHC 31.4 RDW 13.7 Plt Count 272 MPV 10.1 Immature Gran % (Auto) 0.7 H Neut % (Auto) 75.9 H Lymph % (Auto) 18.4 L [place] % (Auto) 4.1 Eos % (Auto) 0.7 Baso % (Auto) 0.2 Lymph # (Auto) 2.2 [place] # (Auto) 0.5 Eos # (Auto) 0.1 Baso # (Auto) 0.0 Abs Immat Gran (auto) 0.08 H Absolute Neuts (auto) 9.1 H Absolute Nucleated RBC 0.000 Nucleated RBC % (auto) 0.0 Sodium Potassium Chloride Carbon Dioxide Anion Gap BUN Creatinine Estim Creat Clear Calc Estimated GFR POC Glucose Random Glucose Fasting Glucose Calcium Magnesium Total Bilirubin AST ALT Alkaline Phosphatase Troponin I High Sens Total Protein Albumin Urine Color Urine Appearance Urine pH Ur Specific [place] Urine Protein Urine Glucose (UA) Urine Ketones Urine Blood Urine Nitrite Ur Leukocyte Esterase Urine RBC Urine WBC Ur Squamous Epith Cells Urine Bacteria Granular Casts Urine Mucus Stool Leukocytes, Qual C. difficile Tox B Gene COVID-19 ([facility]) Negative COVID-19 Clin Com See Note Influenza Type A ([facility]) Negative Influenza Type B ([facility]) Negative Influenza A & B Note See Note 01/31/22 01/31/22 01/31/22 12:04 12:04 13:38 WBC RBC Hgb Hct MCV MCH MCHC RDW Plt Count MPV Immature Gran % (Auto) Neut % (Auto) Lymph % (Auto) [place] % (Auto) Eos % (Auto) Baso % (Auto) Lymph # (Auto) [place] # (Auto) Eos # (Auto) Baso # (Auto) Abs Immat Gran (auto) Absolute Neuts (auto) Absolute Nucleated RBC Nucleated RBC % (auto) Sodium 134 L Potassium 7.0 H* D Chloride 107 Carbon Dioxide 17 L Anion Gap 17 BUN 45 H Creatinine 3.39 H Estim Creat Clear Calc 14.3 Estimated GFR 13 POC Glucose 132 H Random Glucose 155 H Fasting Glucose Calcium 8.9 D Magnesium 2.2 Total Bilirubin 0.4 AST 19 ALT 14 Alkaline Phosphatase 162 H Troponin I High Sens 25.1 H Total Protein 7.9 Albumin 3.7 Urine Color Urine Appearance Urine pH Ur Specific [place] Urine Protein Urine Glucose (UA) Urine Ketones Urine Blood Urine Nitrite Ur Leukocyte Esterase Urine RBC Urine WBC Ur Squamous Epith Cells Urine Bacteria Granular Casts Urine Mucus Stool Leukocytes, Qual C. difficile Tox B Gene COVID-19 ([facility]) COVID-19 Clin Com Influenza Type A ([facility]) Influenza Type B ([facility]) Influenza A & B Note 01/31/22 01/31/22 01/31/22 14:27 14:59 14:59 WBC RBC Hgb Hct MCV MCH MCHC RDW Plt Count MPV Immature Gran % (Auto) Neut % (Auto) Lymph % (Auto) [place] % (Auto) Eos % (Auto) Baso % (Auto) Lymph # (Auto) [place] # (Auto) Eos # (Auto) Baso # (Auto) Abs Immat Gran (auto) Absolute Neuts (auto) Absolute Nucleated RBC Nucleated RBC % (auto) Sodium 136 Potassium 6.1 H* Chloride 109 H Carbon Dioxide 19 L Anion Gap 14 BUN 43 H Creatinine 3.26 H Estim Creat Clear Calc 14.9 Estimated GFR 14 POC Glucose 310 H Random Glucose 290 H Fasting Glucose Calcium 8.2 L D Magnesium Total Bilirubin 0.3 AST 17 ALT 13 Alkaline Phosphatase 148 H Troponin I High Sens 25.4 H Total Protein 7.3 Albumin 3.4 L Urine Color Urine Appearance Urine pH Ur Specific [place] Urine Protein Urine Glucose (UA) Urine Ketones Urine Blood Urine Nitrite Ur Leukocyte Esterase Urine RBC Urine WBC Ur Squamous Epith Cells Urine Bacteria Granular Casts Urine Mucus Stool Leukocytes, Qual C. difficile Tox B Gene COVID-19 ([facility]) COVID-19 Clin Com Influenza Type A ([facility]) Influenza Type B ([facility]) Influenza A & B Note 01/31/22 01/31/22 01/31/22 17:20 17:37 17:54 WBC RBC Hgb Hct MCV MCH MCHC RDW Plt Count MPV Immature Gran % (Auto) Neut % (Auto) Lymph % (Auto) [place] % (Auto) Eos % (Auto) Baso % (Auto) Lymph # (Auto) [place] # (Auto) Eos # (Auto) Baso # (Auto) Abs Immat Gran (auto) Absolute Neuts (auto) Absolute Nucleated RBC Nucleated RBC % (auto) Sodium 138 Potassium 5.6 H Chloride 109 H Carbon Dioxide 20 L Anion Gap 15 BUN 44 H Creatinine 3.18 H Estim Creat Clear Calc 15.2 Estimated GFR 15 POC Glucose 142 H Random Glucose Not Reportable Fasting Glucose 200 H Calcium 9.2 D Magnesium Total Bilirubin AST ALT Alkaline Phosphatase Troponin I High Sens Total Protein Albumin Urine Color YELLOW Urine Appearance HAZY Urine pH 5.5 Ur Specific [place] 1.025 Urine Protein 2+ H Urine Glucose (UA) 100 H Urine Ketones NEG Urine Blood TRACE Urine Nitrite NEG Ur Leukocyte Esterase NEG Urine RBC 0-2 Urine WBC 5-9 H Ur Squamous Epith Cells 1+ Urine Bacteria 4+ Granular Casts 1-4 Urine Mucus TRACE Stool Leukocytes, Qual C. difficile Tox B Gene COVID-19 ([facility]) COVID-19 Clin Com Influenza Type A ([facility]) Influenza Type B ([facility]) Influenza A & B Note 01/31/22 01/31/22 02/01/22 17:54 21:04 06:50 WBC RBC Hgb Hct MCV MCH MCHC RDW Plt Count MPV Immature Gran % (Auto) Neut % (Auto) Lymph % (Auto) [place] % (Auto) Eos % (Auto) Baso % (Auto) Lymph # (Auto) [place] # (Auto) Eos # (Auto) Baso # (Auto) Abs Immat Gran (auto) Absolute Neuts (auto) Absolute Nucleated RBC Nucleated RBC % (auto) Sodium 137 138 Potassium 5.6 H 5.7 H Chloride 107 110 H Carbon Dioxide 20 L 19 L Anion Gap 16 15 BUN 43 H 42 H Creatinine 3.13 H 3.14 H Estim Creat Clear Calc 15.5 15.5 Estimated GFR 15 15 POC Glucose 160 H Random Glucose 199 H 116 H Fasting Glucose Calcium 9.1 9.3 Magnesium Total Bilirubin AST ALT Alkaline Phosphatase Troponin I High Sens Total Protein Albumin Urine Color Urine Appearance Urine pH Ur Specific [place] Urine Protein Urine Glucose (UA) Urine Ketones Urine Blood Urine Nitrite Ur Leukocyte Esterase Urine RBC Urine WBC Ur Squamous Epith Cells Urine Bacteria Granular Casts Urine Mucus Stool Leukocytes, Qual C. difficile Tox B Gene COVID-19 ([facility]) COVID-19 Clin Com Influenza Type A ([facility]) Influenza Type B ([facility]) Influenza A & B Note 02/01/22 02/01/22 02/01/22 07:16 10:43 10:43 WBC RBC Hgb Hct MCV MCH MCHC RDW Plt Count MPV Immature Gran % (Auto) Neut % (Auto) Lymph % (Auto) [place] % (Auto) Eos % (Auto) Baso % (Auto) Lymph # (Auto) [place] # (Auto) Eos # (Auto) Baso # (Auto) Abs Immat Gran (auto) Absolute Neuts (auto) Absolute Nucleated RBC Nucleated RBC % (auto) Sodium Potassium Chloride Carbon Dioxide Anion Gap BUN Creatinine Estim Creat Clear Calc Estimated GFR POC Glucose 117 H Random Glucose Fasting Glucose Calcium Magnesium Total Bilirubin AST ALT Alkaline Phosphatase Troponin I High Sens Total Protein Albumin Urine Color Urine Appearance Urine pH Ur Specific [place] Urine Protein Urine Glucose (UA) Urine Ketones Urine Blood Urine Nitrite Ur Leukocyte Esterase Urine RBC Urine WBC Ur Squamous Epith Cells Urine Bacteria Granular Casts Urine Mucus Stool Leukocytes, Qual FEW: < 2/OIF C. difficile Tox B Gene NEGATIVE COVID-19 ([facility]) COVID-19 Clin Com Influenza Type A ([facility]) Influenza Type B ([facility]) Influenza A & B Note 02/01/22 02/01/22 02/01/22 12:27 17:00 18:17 WBC RBC Hgb Hct MCV MCH MCHC RDW Plt Count MPV Immature Gran % (Auto) Neut % (Auto) Lymph % (Auto) [place] % (Auto) Eos % (Auto) Baso % (Auto) Lymph # (Auto) [place] # (Auto) Eos # (Auto) Baso # (Auto) Abs Immat Gran (auto) Absolute Neuts (auto) Absolute Nucleated RBC Nucleated RBC % (auto) Sodium Potassium 5.6 H Chloride Carbon Dioxide Anion Gap BUN Creatinine Estim Creat Clear Calc Estimated GFR POC Glucose 179 H 84 Random Glucose Fasting Glucose Calcium Magnesium Total Bilirubin AST ALT Alkaline Phosphatase Troponin I High Sens Total Protein Albumin Urine Color Urine Appearance Urine pH Ur Specific [place] Urine Protein Urine Glucose (UA) Urine Ketones Urine Blood Urine Nitrite Ur Leukocyte Esterase Urine RBC Urine WBC Ur Squamous Epith Cells Urine Bacteria Granular Casts Urine Mucus Stool Leukocytes, Qual C. difficile Tox B Gene COVID-19 ([facility]) COVID-19 Clin Com Influenza Type A ([facility]) Influenza Type B ([facility]) Influenza A & B Note 02/01/22 02/02/22 02/02/22 20:33 01:53 06:51 WBC RBC Hgb Hct MCV MCH MCHC RDW Plt Count MPV Immature Gran % (Auto) Neut % (Auto) Lymph % (Auto) [place] % (Auto) Eos % (Auto) Baso % (Auto) Lymph # (Auto) [place] # (Auto) Eos # (Auto) Baso # (Auto) Abs Immat Gran (auto) Absolute Neuts (auto) Absolute Nucleated RBC Nucleated RBC % (auto) Sodium 136 Potassium 5.0 Chloride 110 H Carbon Dioxide 18 L Anion Gap 13 BUN 34 H Creatinine 2.82 H Estim Creat Clear Calc 17.2 Estimated GFR 17 POC Glucose 88 113 Random Glucose 159 H Fasting Glucose Calcium 8.8 Magnesium Total Bilirubin AST ALT Alkaline Phosphatase Troponin I High Sens Total Protein Albumin Urine Color Urine Appearance Urine pH Ur Specific [place] Urine Protein Urine Glucose (UA) Urine Ketones Urine Blood Urine Nitrite Ur Leukocyte Esterase Urine RBC Urine WBC Ur Squamous Epith Cells Urine Bacteria Granular Casts Urine Mucus Stool Leukocytes, Qual C. difficile Tox B Gene COVID-19 ([facility]) COVID-19 Clin Com Influenza Type A ([facility]) Influenza Type B ([facility]) Influenza A & B Note 02/02/22 07:57 WBC RBC Hgb Hct MCV MCH MCHC RDW Plt Count MPV Immature Gran % (Auto) Neut % (Auto) Lymph % (Auto) [place] % (Auto) Eos % (Auto) Baso % (Auto) Lymph # (Auto) [place] # (Auto) Eos # (Auto) Baso # (Auto) Abs Immat Gran (auto) Absolute Neuts (auto) Absolute Nucleated RBC Nucleated RBC % (auto) Sodium Potassium Chloride Carbon Dioxide Anion Gap BUN Creatinine Estim Creat Clear Calc Estimated GFR POC Glucose 151 H Random Glucose Fasting Glucose Calcium Magnesium Total Bilirubin AST ALT Alkaline Phosphatase Troponin I High Sens Total Protein Albumin Urine Color Urine Appearance Urine pH Ur Specific [place] Urine Protein Urine Glucose (UA) Urine Ketones Urine Blood Urine Nitrite Ur Leukocyte Esterase Urine RBC Urine WBC Ur Squamous Epith Cells Urine Bacteria Granular Casts Urine Mucus Stool Leukocytes, Qual C. difficile Tox B Gene COVID-19 ([facility]) COVID-19 Clin Com Influenza Type A ([facility]) Influenza Type B ([facility]) Influenza A & B Note Airway Mallampati Class: II (Missing multiple nothing loose) TM Dist: >3cm Neck ROM: Full Heart: rrr Lungs: cta Assessment and Plan Assessment Anesthesia Assessment: Anesthesia Plan Discussed and Chart Reviewed Final Anesthetic Review Family History of Problems with Anesthesia: No History of Problems with Anesthesia: No NPO: Yes ASA Class: III Final Preanesthetic Review: No Changes in Pt Med Stat, Meds/Allgs Chart Reviewed and Consent Obtained/Reviewed Patient Risk: Intermediate Procedure Risk: Intermediate Anesthetic Plan Anesthetic Plan: MAC: Disposition: Standard PACU
--- NOTE | 2022-02-02 13:47 | PC.NURSE ---
3 rings removed and placed in bag in chart with pt label, pt aware & report given to OR nurse about these belongings
[2022-02-02 13:55] LABS: Glucose, Whole Blood 130 mg/dL (60-115)
--- NOTE | 2022-02-02 15:05 | MHC.SHP ---
Pre-Procedural Eval Section A Date of Service: 02/02/22 The patient is an INPATIENT: Yes The History & Physical has been completed within 30 days and I have reviewed it.: Yes Section B Chief Complaint: GIL,Hyperkalemia,diarrhea,dysphagia Allergies: Allergies Allergy/AdvReac Type Severity Reaction Status Date / Time latex [LATEX] Allergy Intermediate ITCHY Verified 06/29/21 13:08 Plan Diagnosis/Plan: Unchanged I have reviewed the history and physical and performed a pertinent physical examination on my patient. No changes have occurred unless specified.
--- NOTE | 2022-02-02 15:06 | PM.OP ---
Brief Operative Note Date of Service: 02/02/22 Pre-op diagnosis: dysphagia Post-op diagnosis: same Procedure: see op note Surgeon: Raymond Garcias MD Anesthesia: MAC Was an Director Career used for this Procedure?: No Estimated blood loss (mL): 0 Condition: stable Disposition: PACU
--- NOTE | 2022-02-02 15:32 | W.PM.OPN ---
Operative Note Operative Note Date of Service: 02/02/22 Narrative: Procedure Description: EGD Indication: dysphagia Anesthesia: MAC FLEXIBLE TRANSORAL UPPER GASTROINTESTINAL ENDOSCOPY UPPER ENDOSCOPY Consent: Indications for the procedure and potential complications of bleeding, perforation, reaction to medications and missed diagnosis were discussed with the patient and informed consent was obtained. Instrument: Olympus GIF H 190 J mid size upper endoscope Monitoring: Vital signs and clinical assessment, continuous EKG monitoring, Pulse oximetry, Carbon Dioxide monitoring and blood pressure monitoring were done throughout the procedure. Procedure: The patient was placed in the left lateral decubitis position and pre-procedure medications were administered and a bite block was placed. The endoscope was inserted into the mouth and advanced under direct vision to the third part of duodenum. A careful inspection was made as the upper endoscope was withdrawn including a retroflexed examination of the proximal stomach; Findings and interventions are described below. Findings: Larynx:normal Esophagus: GE junction at 36? cm, diaphragm hiatus at 38 cm, erosive esophagitis noted at GEJ- LA grade A The GEJ was v lax. Balloon dilation done at LES to 19 mm, and UES to 19 mm no tear seen, some resistance felt. 2 cm hiatal hernia noted. Stomach: Erosive gastritis in the antrum and body. Grade 3 flap valve on retroflexed examination of the cardia. Duodenum:Patchy duodenitis Intervention: Balloon dilation Impression/Findings: Dysphagia, may be 2/2 to GERD and esophagitis erosive gastritis hiatal hernia duodenitis These findings may also be contributing to her diarrhea PLAN: high dose PPI, use pantoprazole 40 mg BID with carafate--need to ensure compliance with regimen advance diet as tolerated if sx persist then modified barium swallow check stool for h pylori GERD precautions
[2022-02-02 16:51] LABS: Glucose, Whole Blood 106 mg/dL (60-115)
[2022-02-02] MEDS: Sucralfate 1 GM TABLET PO ×2 (18:22→20:54)
[2022-02-02] MEDS: 0.9 % Sodium Chloride Flush 3 ML SYRINGE IVFLUSH ×2 (18:26→20:55)
[2022-02-02 20:11] LABS: Glucose, Whole Blood 184 mg/dL (60-115)
[2022-02-02] MEDS: Atorvastatin Calcium 80 MG TABLET PO (20:54)
[2022-02-02] MEDS: Insulin Glargine,Hum.rec.anlog 100 UNIT/ML 10 ML VIAL 20 UNIT SUBCUT (20:54)
[2022-02-02] MEDS: traZODone HCL 50 MG TABLET PO (20:54)
[2022-02-02] MEDS: Famotidine 20 MG TABLET 40 MG PO (20:54)
[2022-02-02] MEDS: Insulin Lispro 100 UNIT/ML 3 ML VIAL SUBCUT (20:55)
[2022-02-03] VITALS (8 sets, daily range): BP systolic 140–169; BP diastolic 50–82; PULSE 71–82; RESP 18–20; TEMP 36.3–37.1; O2SAT 95–98
[2022-02-03 06:37] LABS: Hematocrit 29.6 % (37.0-47.0); Hemoglobin 9.4 g/dl (12.0-16.0); Mean Corpuscular HGB Conc 31.8 g/dl (31.0-35.0); Mean Corpuscular Hemoglobin 26.5 pg (27.0-33.0); Mean Corpuscular Volume 83.4 fL (80.0-98.0); Mean Platelet Volume 9.9 fL (9.4-12.3); Platelet Count 209 X10*3/uL (160-400); Red Blood Count 3.55 X10*6/uL (4.20-5.50); Red Cell Distribution Width 13.4 % (11.0-16.0); White Blood Count 8.5 X10*3/uL (4.8-10.8)
[2022-02-03 06:53] LABS: Anion Gap 11 (12-20); Blood Urea Nitrogen 30 mg/dL (9-16); Calcium 8.7 mg/dL (8.4-10.2); Carbon Dioxide 21 mmol/L (22-29); Chloride 111 mmol/L (96-108); Creatinine Clr Calc Pharmacy 19.8; Estimated Glomerular Filt Rate 20; Glucose Random 214 mg/dL (60-115); Sodium 138 mmol/L (135-145)
[2022-02-03 07:43] LABS: Glucose, Whole Blood 202 mg/dL (60-115)
--- NOTE | 2022-02-03 08:49 | HO.POSTANES ---
Post Anesthesia Evaluation Post Anesthesia Evaluation Vital Signs: Vital Signs Temp Pulse Resp BP Pulse Ox 02/03/22 07:34 98.7 F 76 18 140/68 H 95 02/03/22 04:00 97.6 F 82 20 143/59 H 97 02/03/22 00:00 97.8 F 73 20 154/51 H 96 Anesthesia: Monitored Mental Status: Awake Pain Control: Satisfactory Nausea/Vomiting: None Hydration: Adequate Anesthesia-Related Issues: No Anes. Related Issues
[2022-02-03] MEDS: Insulin Lispro 100 UNIT/ML 3 ML VIAL SUBCUT ×4 (09:41→22:03)
[2022-02-03] MEDS: Calcium + Vitamin D 250 MG TABLET 500 MG PO ×2 (09:42→22:02)
[2022-02-03] MEDS: Famotidine 20 MG TABLET 40 MG PO ×2 (09:43→22:02)
[2022-02-03] MEDS: Sertraline HCL 50 MG TABLET PO (09:43)
[2022-02-03] MEDS: 0.9 % Sodium Chloride Flush 3 ML SYRINGE IVFLUSH ×2 (09:43→16:21)
[2022-02-03] MEDS: amLODIPine Besylate 2.5 MG TABLET PO (09:43)
[2022-02-03] MEDS: Clopidogrel Bisulfate 75 MG TABLET PO (09:43)
[2022-02-03] MEDS: Gabapentin 100 MG CAPSULE PO ×2 (09:43→22:02)
[2022-02-03] MEDS: Magnesium Oxide 400 MG TABLET PO ×2 (09:43→22:02)
[2022-02-03 11:19] LABS: Glucose, Whole Blood 180 mg/dL (60-115)
--- NOTE | 2022-02-03 11:39 | PM.PNNEP ---
Subjective Subjective Date of Service: 02/03/22 Interval history: seen and examined no complaints Physical Exam Vital Signs: Vital Signs: Last Vital Signs Temp 97.8 F 02/03/22 11:07 Pulse 77 02/03/22 11:07 Resp 18 02/03/22 11:07 BP 164/77 H 02/03/22 11:07 Pulse Ox 98 02/03/22 11:07 BMI result Body Mass Index 37.6 Const: General: no acute distress HEENT: Head: Yes normocephalic and Yes atraumatic Neck: Neck: Yes supple Resp: Auscultation: diminished lung sounds Cardio: Heart sounds: S1 normal heart sound present and S2 normal heart sound present GI: Palpation (GI): Soft to palpation and nontender Extrem: General: Yes normal to inspection Objective Data Labs CBC & Chem 7: 02/03/22 06:25 02/03/22 06:25 Labs: Laboratory Results - last 24 hr 02/02/22 02/02/22 02/02/22 13:49 16:47 19:26 WBC RBC Hgb Hct MCV MCH MCHC RDW Plt Count MPV Absolute Nucleated RBC Nucleated RBC % (auto) Sodium Potassium Chloride Carbon Dioxide Anion Gap BUN Creatinine Estim Creat Clear Calc Estimated GFR POC Glucose 130 H 106 184 H Random Glucose Calcium 02/03/22 02/03/22 02/03/22 06:25 06:25 07:37 WBC 8.5 RBC 3.55 L Hgb 9.4 L Hct 29.6 L MCV 83.4 MCH 26.5 L MCHC 31.8 RDW 13.4 Plt Count 209 MPV 9.9 Absolute Nucleated RBC 0.000 Nucleated RBC % (auto) 0.0 Sodium 138 Potassium 5.0 Chloride 111 H Carbon Dioxide 21 L Anion Gap 11 L BUN 30 H Creatinine 2.45 H Estim Creat Clear Calc 19.8 Estimated GFR 20 POC Glucose 202 H Random Glucose 214 H Calcium 8.7 02/03/22 11:09 WBC RBC Hgb Hct MCV MCH MCHC RDW Plt Count MPV Absolute Nucleated RBC Nucleated RBC % (auto) Sodium Potassium Chloride Carbon Dioxide Anion Gap BUN Creatinine Estim Creat Clear Calc Estimated GFR POC Glucose 180 H Random Glucose Calcium Microbiology Microbiology Results: Microbiology 02/01/22 10:43 Stool Stool Culture - Preliminary Normal so far. 01/31/22 17:15 Urine clean catch - Urine chery top Urine Culture - Final Procedures Date of Service Date of Service: 02/03/22 Assessment & Plan Assessment and plan (1) GIL (acute kidney injury): Status: Acute (2) CKD (chronic kidney disease) stage 4, GFR 15-29 ml/min: Status: Acute Plan kidney function at baseline mild GIL due to renal hypoperfusion resolved elevated serum potassium multifactorial: -compromised distal flow -type IV RTA known severe CKD baseline Scr ~ 2.6-2.8 mg/dl REC furosemide orally 40 mg bid (home dose) sodium bicarbonate 650 mg bid sodium zirconium 5 gram thrice weekly in o/p setting follow kidney function and electrolytes Time Spent With Patient Time: Total time spent is greater than 50% in coordination of care (as documented) at patient's floor/unit and/or counseling patient: Progress Note: Quality Stroke Does the patient have a stroke diagnosis?: No
[2022-02-03] MEDS: Sucralfate 1 GM TABLET PO ×3 (12:00→22:02)
--- NOTE | 2022-02-03 12:39 | PM.DS ---
DS: Providers Provider Date of Service: 02/03/22 Date of admission: 01/31/22 16:29 Primary care physician: Unknown Physician Consults: 01/31/22 16:28 Consult to Gastroenterology Routine Consulting Provider: Raymond Garcias Reason for consultation: esophageal dysmotility Has provider been notified: No Consult to Nephrology Routine Consulting Provider: Leo Monroe Reason for consultation: GIL, high k Has provider been notified: No DS: Diagnosis Discharge Diagnosis (1) GIL (acute kidney injury): Status: Acute (2) CKD (chronic kidney disease) stage 4, GFR 15-29 ml/min: Status: Acute DS: Summary Hospital Course Hospital Course: 66yo woman with HFpEF, NICM, CKD3-4, hx CVA, HTN, HLD, DM2 s/p L BKA and multiple finger amputations, GERD, and gastroparesis. She presents today because of diarrhea that has been ongoing for nearly 2 weeks, at time mucussy but no blood, no associated abdominal pain, as result she has been feeling very weak, no recent travel, no fever or chills, no other household with similar disease. Of note she is also c/o of difficulty swallowing liquid or solid and I should note that She has had history of esophageal narrowing and has had balloon dilatations in the past most recently in 2020.? Her baseline creatinine is about 2.8 and presently 3.26.? Potassium is 6 and has been given calcium gluconate and insulin.? Her troponin is 25 which is chronic.? She has no chest pain and there is no significant EKG changes noted. hospital course:Patient was admitted for diarrhea, elevated potassium level, acute kidney injury, difficulty swallowing: Patient was treated with bowel rest, IV fluid, lokalemal, also stools were checked for infection alfred zhu for wbc and stool culture (prelim) neg. Diarrhea related to possible were all viral gastroenteritis versus says severe range of ascites/duodenitis. CT abdomen seems fine(please see imaging section). Patient's acute kidney injury on ckd stage 4 and diarrhea improved with hydration and stool studies are negative, in addition Imodium added for p.r.n. for diarrhea. Patient need to follow up with GI outpatient for further workup and management. Dysphagia-as treated with EGD and found to have significant gastritis and esophagitis, duodenitis -so GI recommended to start sucralfate and famotidine-subsequently patient dysphagia seems improved and, tolerating diet. Patient was seen by and nephrology for acute kidney injury and elevated potassium level: Please see above-currently patient renal function seems at baseline, also kidney doctor recommended to add Lokelma for for preventing hyperkalemia. Please monitor BMP out patiently Patient has diabetes but fingersticks are fluctuating probably due lower p.o. intake due to dysphagia recently: We will adjust and Lantus to 25 units. It can be up titrated accordingly out patiently if needed to be. ct [facility] : inceidental finding -Solitary sub-5 mm noncalcified stable right lower lobar lung nodule, unchanged since 02/25/2021.?followup outpatient with pcp. Further management outpatient as per PCP. Above management discussed with the patient in detail length with quilt maker. Advised to compliance with her famotidine as well as sucralfate and other medications in detail. Patient is going to go home with VNA. Time Spent with Patient Time attestation: Total time spent providing and/or coordinating discharge services: Discharge coordination time: Greater than 30 minutes Quality: Safe Use of Opioids Does Pt have an Active Cancer Diagnosis on the Problem List?: No Quality: Stroke Does the patient have a stroke diagnosis?: No Physical Exam Vital Signs: Vital Signs: Last Vital Signs Temp 97.8 F 02/03/22 11:07 Pulse 77 02/03/22 11:07 Resp 18 02/03/22 11:07 BP 164/77 H 02/03/22 11:07 Pulse Ox 98 02/03/22 11:07 BMI result Body Mass Index 37.6 Appearance: Alert.? Oriented X3.? not in distress.? cvs: rrr, [id number] . res: clear to auscultation ,no rhonchii or wheezing abd: no rebound or guarding ,nt, bs present. ext pulses present , no cyanosis . neuro: axo3 , nonfocal. DS: Data Data Completed and Pending Completed studies during hospitalization [Text1]: Procedures Dilation of Upper Esophagus, Via Natural or Artificial Opening Endoscopic (08/16/21) Introduction of Other Thrombolytic into Peripheral Vein, Percutaneous Approach (06/05/21) Transfusion of Nonautologous Red Blood Cells into Peripheral Vein, Percutaneous Approach (12/24/20) Labs on day of discharge: Laboratory Results - last 24 hr 02/02/22 02/02/22 02/02/22 13:49 16:47 19:26 WBC RBC Hgb Hct MCV MCH MCHC RDW Plt Count MPV Absolute Nucleated RBC Nucleated RBC % (auto) Sodium Potassium Chloride Carbon Dioxide Anion Gap BUN Creatinine Estim Creat Clear Calc Estimated GFR POC Glucose 130 H 106 184 H Random Glucose Calcium 02/03/22 02/03/22 02/03/22 06:25 06:25 07:37 WBC 8.5 RBC 3.55 L Hgb 9.4 L Hct 29.6 L MCV 83.4 MCH 26.5 L MCHC 31.8 RDW 13.4 Plt Count 209 MPV 9.9 Absolute Nucleated RBC 0.000 Nucleated RBC % (auto) 0.0 Sodium 138 Potassium 5.0 Chloride 111 H Carbon Dioxide 21 L Anion Gap 11 L BUN 30 H Creatinine 2.45 H Estim Creat Clear Calc 19.8 Estimated GFR 20 POC Glucose 202 H Random Glucose 214 H Calcium 8.7 02/03/22 11:09 WBC RBC Hgb Hct MCV MCH MCHC RDW Plt Count MPV Absolute Nucleated RBC Nucleated RBC % (auto) Sodium Potassium Chloride Carbon Dioxide Anion Gap BUN Creatinine Estim Creat Clear Calc Estimated GFR POC Glucose 180 H Random Glucose Calcium Preliminary micro results at discharge 02/01/22 10:43 Stool Culture - Preliminary Stool Normal so far. Additional Comments Additional comments: CT/CT abdomen pelvis wo con IMPRESSION: ? 1. No CT evidence of any acute intra-abdominal and/or intrapelvic pathology is present. 2. Solitary sub-5 mm noncalcified stable right lower lobar lung nodule, unchanged since 02/25/2021.? Discharge Plan Discharge Patient Disposition: Home Health Service Discharge Diagnosis: Dysphagia, hyperkalemia Referrals: Physician,Unknown J [Primary Care Provider] - 1 Week Discharge Medications: New loperamide 2 mg Capsule 2 mg PO Q4H PRN (Reason: Diarrhea) Qty: 10 0RF sodium bicarbonate 650 mg tablet 650 mg PO BID Qty: 14 0RF sucralfate 1 gram Tablet 1 g PO QIDACHS Qty: 240 0RF famotidine 20 mg Tablet 40 mg PO BID Qty: 60 0RF Lokelma 5 gram powder in packet 5 g PO Q OTHER DAY Qty: 6 0RF Continued furosemide [Lasix] 40 mg tablet 40 mg PO BID 90 Days Qty: 180 1RF carvedilol 3.125 mg tablet 6.25 mg PO BID Qty: 90 3RF Label Comments: patient cant confirm dose or med Rx Instructions: must administer with a meal/food atorvastatin 80 mg tablet 80 mg PO QPM 0RF trazodone 50 mg tablet 50 mg PO BEDTIME 0RF amlodipine 2.5 mg tablet 2.5 mg PO QAM 0RF clopidogrel 75 mg tablet 75 mg PO QAM 0RF aspirin 81 mg tablet,delayed release (DR/EC) 81 mg PO QPM 0RF magnesium oxide 400 mg (241.3 mg magnesium) tablet 400 mg PO BID 0RF gabapentin 100 mg capsule 100 mg PO BID 0RF sertraline 50 mg tablet 50 mg PO DAILY 0RF insulin aspart U-100 [Novolog Flexpen U-100 Insulin] 100 unit/mL (3 mL) insulin pen 8 - 12 unit subcut TID 0RF Rx Instructions: Sliding scale calcium carbonate-vitamin D3 600 mg(1,500mg) -400 unit tablet 1 tab PO BID 0RF hydralazine 10 mg tablet 1 tab PO BID 0RF furosemide 40 mg tablet 1 tab PO BID 0RF Changed Lantus Solostar U-100 Insulin 100 unit/mL (3 mL) insulin pen 25 unit subcut DAILY Qty: 0 0RF Discharge Orders: Discharge Order (Routine); Ordered 02/03/22 Ordered By: Mamadou Mixon Diet: advance to usual diet and diabetic diet Activity on Discharge: As tolerated Stand Alone Forms: Patient Portal Discharge page Care Plan Goals: Patient was admitted for diarrhea, elevated potassium level, acute kidney injury, difficulty swallowing: Patient was treated with bowel rest, IV fluid, medications to decrease potassium level, also stools were checked for infection(which seems to be fine). Patient's acute kidney injury and diarrhea improved with hydration and stool studies are negative, in addition Imodium added for p.r.n. for diarrhea. Patient need to follow up with GI outpatient for further management. Dysphagia-as treated with EGD and found to have significant gastritis and esophagitis-so GI recommended to start sucralfate and famotidine-subsequently patient dysphagia seems improved and, tolerating diet. Patient was seen by and kidney doctor for acute kidney injury and elevated potassium level: Please see above-currently patient renal function seems at baseline, also kidney doctor recommended to add Lokelma for for venting hyperkalemia. Please monitor BMP out patiently Patient has diabetes but fingersticks are fluctuating probably due lower p.o. intake due to dysphagia recently: We will adjust and Lantus to 25 units. It can be up titrated accordingly out patiently if needed to be. Further management outpatient as per PCP. Above management discussed with the patient in detail length with quilt maker. Advised to compliance with her famotidine as well as sucralfate and other medications in detail. Patient is going to go home with VNA. Health Concerns: As above. Plan of Treatment: As above. Assessment: As above.
--- NOTE | 2022-02-03 12:54 | P.F2F_ITS ---
Service Date Service Date: 02/03/22 Encounter Date of encounter: 02/03/22 Encounter: GIL, dysphagia, hyperkalemia Reasons for Services Signs and symptoms assessed: Diarrhea, generalized weakness. Reason for intermediate: medication management, medication treatment and teach disease management MD Overseeing Care: Alexys Avila Homebound: Leaving the home is medically contraindicated at this time without the asist of a device and/or another person due th the listed conditions above and below. Reason homebound: weakness related to hospital stay Homebound supporting statement: Patient multiple mom medical comorbidities including dysphagia, GIL, electrolytic abnormalities and generalized weak post hospitalization stay need help to go to appointment, lab draws. Certification: Based on the above findings, I certify that this patient is confined to the home and needs intermittent intermediate care, physical therapy and/or speech therapy, or continues to need occupational therapy. The patient is under my care, and I have initiated the establishment of the plan of care. The patient will be followed by a physician who will periodically review the plan of care.
--- NOTE | 2022-02-03 13:58 | MHC.CM.PN ---
Patient has been medically cleared for dc to home today with new VNA. A VNA search was initiated but no VNA acceptance as of yet; CM has informed MD & RN.
--- NOTE | 2022-02-03 14:59 | HO.PM.IMPN ---
Subjective Subjective Date of Service: 02/04/22 Interval History: Dysphagia, hyperkalemia Review of Systems Dysphagia and diarrhea improved Physical Exam Vital Signs: Vital Signs: Last Vital Signs Temp 97.8 F 02/03/22 11:07 Pulse 77 02/03/22 11:07 Resp 18 02/03/22 11:07 BP 164/77 H 02/03/22 11:07 Pulse Ox 98 02/03/22 11:07 BMI result Body Mass Index 37.6 Appearance: Alert.? Oriented X3.? not in distress.? cvs: rrr, [id number] . res: clear to auscultation ,no rhonchii or wheezing abd: no rebound or guarding ,nt, bs present. ext pulses present , no cyanosis . neuro: axo3 , nonfocal. Objective Data Active Medications Acetaminophen (Acetaminophen 325 Mg Tablet) 650 mg PO Q6H PRN PRN Reason: Pain, Mild (Pain Scale 1-3) Amlodipine Besylate (Amlodipine Besylate 2.5 Mg Tablet) 2.5 mg PO DAILY [facility]; Protocol Last Admin: 02/03/22 09:43 Dose: 2.5 mg Documented by: JAIME Atorvastatin Calcium (Atorvastatin Calcium 80 Mg Tablet) 80 mg PO BEDTIME [facility] Last Admin: 02/02/22 20:54 Dose: 80 mg Documented by: KJ Calcium Carbonate/Cholecalciferol (Calcium + Vitamin D 250 Mg Tablet) 500 mg PO BID [facility] Last Admin: 02/03/22 09:42 Dose: 500 mg Documented by: JAIME Carvedilol (Carvedilol 3.125 Mg Tablet) 6.25 mg PO BID [facility]; Protocol Last Admin: 02/01/22 08:19 Dose: 6.25 mg Documented by: VERONICA Clopidogrel Bisulfate (Clopidogrel Bisulfate 75 Mg Tablet) 75 mg PO DAILY [facility] Last Admin: 02/03/22 09:43 Dose: 75 mg Documented by: JAIME Famotidine (Famotidine 20 Mg Tablet) 40 mg PO BID [facility] Last Admin: 02/03/22 09:43 Dose: 40 mg Documented by: JAIME Furosemide (Furosemide 40 Mg Tablet) 40 mg PO BID [facility]; Protocol Last Admin: 02/01/22 08:20 Dose: 40 mg Documented by: VERONICA Gabapentin (Gabapentin 100 Mg Capsule) 100 mg PO BID [facility] Last Admin: 02/03/22 09:43 Dose: 100 mg Documented by: JAIME Hydralazine HCl (Hydralazine Hcl 10 Mg Tablet) 10 mg PO BID [facility]; Protocol Last Admin: 02/01/22 08:20 Dose: 10 mg Documented by: VERONICA Insulin Glargine (Insulin Glargine,Hum.Rec.Anlog 100 Unit/Ml 10 Ml Vial) 20 unit SUBCUT BEDTIME [facility] Last Admin: 02/02/22 20:54 Dose: 20 unit Documented by: KJ Insulin Human Lispro (Insulin Lispro 100 Unit/Ml 3 Ml Vial) 0 unit SUBCUT QIDAS [facility]; Protocol Last Admin: 02/03/22 11:59 Dose: 2 unit Documented by: JAIME Loperamide HCl (Loperamide Hcl 2 Mg Capsule) 2 mg PO Q4H PRN PRN Reason: Diarrhea Magnesium Oxide (Magnesium Oxide 400 Mg Tablet) 400 mg PO BID [facility] Last Admin: 02/03/22 09:43 Dose: 400 mg Documented by: JAIEM Melatonin (Melatonin 3 Mg Tablet) 6 mg PO BEDTIME PRN PRN Reason: Insomnia Pharmacy Consult (Consult Rx Perform Med Rec) 1 each MISCELLANE ONCE PRN PRN Reason: Consult order Sertraline HCl (Sertraline Hcl 50 Mg Tablet) 50 mg PO DAILY [facility] Last Admin: 02/03/22 09:43 Dose: 50 mg Documented by: JAIME Sodium Chloride (0.9 % Sodium Chloride Flush 3 Ml Syringe) 3 ml IVFLUSH QSHI Last Admin: 02/03/22 09:43 Dose: 3 ml Documented by: JAIME Sucralfate (Sucralfate 1 Gm Tablet) 1 gm PO QIDACHS [facility] Last Admin: 02/03/22 12:00 Dose: 1 gm Documented by: JAIME Trazodone HCl (Trazodone Hcl 50 Mg Tablet) 50 mg PO BEDTIME [facility] Last Admin: 02/02/22 20:54 Dose: 50 mg Documented by: KJ Labs CBC & Chem 7: 02/03/22 06:25 02/03/22 06:25 Labs: Laboratory Results - last 24 hr 05/04/22 05/04/22 05/05/22 16:47 19:26 06:25 MCV 83.4 MCH 26.5 L MCHC 31.8 RDW 13.4 Plt Count 209 MPV 9.9 Absolute Nucleated RBC 0.000 Nucleated RBC % (auto) 0.0 Anion Gap Estim Creat Clear Calc Estimated GFR POC Glucose 106 184 H Random Glucose Calcium 02/03/22 02/03/22 02/03/22 06:25 07:37 11:09 MCV MCH MCHC RDW Plt Count MPV Absolute Nucleated RBC Nucleated RBC % (auto) Anion Gap 11 L Estim Creat Clear Calc 19.8 Estimated GFR 20 POC Glucose 202 H 180 H Random Glucose 214 H Calcium 8.7 Microbiology Microbiology Results: Microbiology 02/01/22 10:43 Stool Culture - Preliminary Stool Normal so far. Assessment and Plan (1) Dysphagia: Status: Acute (2) CKD (chronic kidney disease) stage 4, GFR 15-29 ml/min: Status: Acute Plan Patient was admitted for diarrhea, elevated potassium level, acute kidney injury, difficulty swallowing: Patient was treated with bowel rest, IV fluid, lokalemal, also stools were checked for infection alfred zhu for wbc and stool culture (prelim) neg. Diarrhea related to possible were all viral gastroenteritis versus says severe range of ascites/duodenitis. CT abdomen seems fine(please see imaging section). Patient's acute kidney injury on ckd stage 4 and diarrhea improved with hydration and stool studies are negative, in addition Imodium added for p.r.n. for diarrhea. Patient need to follow up with GI outpatient for further workup and management. Dysphagia-as treated with EGD and found to have significant gastritis and esophagitis, duodenitis -so GI recommended to start sucralfate and famotidine-subsequently patient dysphagia seems improved and, tolerating diet. Patient was seen by and nephrology for acute kidney injury and elevated potassium level:? Please see above-currently patient renal function seems at baseline, also kidney doctor recommended to add Lokelma for for preventing? hyperkalemia.? Please monitor BMP out patiently Patient has diabetes but fingersticks are fluctuating probably due lower p.o. intake due to dysphagia recently:? We will adjust and Lantus to 25 units.? It can be up titrated accordingly out patiently if needed to be. ct [facility] : inceidental finding -Solitary sub-5 mm noncalcified stable right lower lobar lung nodule, unchanged since 02/25/2021.?followup outpatient with pcp. Due to multiple medical issues and noncompliance patient will benefit from VNA. need for inpatient -d/w daughter can not ableto bring her home today . Quality Stroke Does the patient have a stroke diagnosis?: No VTE Prior VTE?: No VTE Risk Level:: Medical - moderate - high VTE Device Contraindication: Treatment Not Tolerated VTE Drug Contraindication: Treatment Not Indicated
--- NOTE | 2022-02-03 15:30 | MHC.CM.PN ---
Patient has been medically cleared for dc to home today, with new VNA. [facility] is the only accepting [facility] with a SOC for 02/07/22 (MD AWARE AND APPROVED THIS SOC). Last IMM addressed on 02/01/22.
[2022-02-03 16:59] LABS: Glucose, Whole Blood 166 mg/dL (60-115)
[2022-02-03 20:50] LABS: Glucose, Whole Blood 153 mg/dL (60-115)
[2022-02-03] MEDS: Atorvastatin Calcium 80 MG TABLET PO (22:00)
[2022-02-03] MEDS: carvediloL 3.125 MG TABLET 6.25 MG PO (22:02)
[2022-02-03] MEDS: traZODone HCL 50 MG TABLET PO (22:03)
[2022-02-03] MEDS: Insulin Glargine,Hum.rec.anlog 100 UNIT/ML 10 ML VIAL 20 UNIT SUBCUT (22:03)
[2022-02-04 03:36] VITALS: BP 166/78; PULSE 69; RESP 19; TEMP 37; O2SAT 95
[2022-02-04 07:15] VITALS: BP 158/102; PULSE 69; RESP 14; TEMP 36.4; O2SAT 97
[2022-02-04 07:29] LABS: Glucose, Whole Blood 120 mg/dL (60-115)
[2022-02-04] MEDS: carvediloL 3.125 MG TABLET 6.25 MG PO (08:10)
[2022-02-04] MEDS: Calcium + Vitamin D 250 MG TABLET 500 MG PO (08:10)
[2022-02-04] MEDS: Sucralfate 1 GM TABLET PO ×2 (08:10→12:00)
[2022-02-04] MEDS: 0.9 % Sodium Chloride Flush 3 ML SYRINGE IVFLUSH (08:10)
[2022-02-04] MEDS: Sertraline HCL 50 MG TABLET PO (08:10)
[2022-02-04] MEDS: Gabapentin 100 MG CAPSULE PO (08:10)
[2022-02-04] MEDS: amLODIPine Besylate 2.5 MG TABLET PO (08:10)
[2022-02-04] MEDS: Clopidogrel Bisulfate 75 MG TABLET PO (08:10)
[2022-02-04] MEDS: Famotidine 20 MG TABLET 40 MG PO (08:10)
[2022-02-04] MEDS: Magnesium Oxide 400 MG TABLET PO (08:11)
--- NOTE | 2022-02-04 11:38 | MHC.CM.PN ---
pt dcd today [facility]fo lane has accerpted pt and was notified of dc spoke with myah who will be pickling up pt this am
--- NOTE | 2022-02-04 11:39 | MHC.CM.PN ---
mohsen notified of dc from [facility]
[2022-02-04 11:49] LABS: Glucose, Whole Blood 167 mg/dL (60-115)
[2022-02-04 11:57] VITALS: BP 146/70; PULSE 71; RESP 20; TEMP 37.1; O2SAT 95
[2022-02-04] MEDS: Insulin Lispro 100 UNIT/ML 3 ML VIAL SUBCUT (12:00)
--- NOTE | 2022-02-04 12:13 | PM.PNNEP ---
Subjective Subjective Date of Service: 02/04/22 Interval history: seen and examined no complaints Physical Exam Vital Signs: Vital Signs: Last Vital Signs Temp 98.7 F 02/04/22 11:57 Pulse 71 02/04/22 11:57 Resp 20 02/04/22 11:57 BP 146/70 H 02/04/22 11:57 Pulse Ox 95 02/04/22 11:57 BMI result Body Mass Index 37.6 Const: General: no acute distress HEENT: Head: Yes normocephalic and Yes atraumatic Neck: Neck: Yes supple Resp: Auscultation: diminished lung sounds Cardio: Heart sounds: S1 normal heart sound present and S2 normal heart sound present GI: Palpation (GI): Soft to palpation and nontender Extrem: General: Yes normal to inspection Objective Data Labs CBC & Chem 7: 02/03/22 06:25 02/03/22 06:25 Labs: Laboratory Results - last 24 hr 02/03/22 02/03/22 02/04/22 16:55 20:47 07:19 POC Glucose 166 H 153 H 120 H 02/04/22 11:44 POC Glucose 167 H Microbiology Microbiology Results: Microbiology 02/01/22 10:43 Stool Stool Culture - Final 01/31/22 17:15 Urine clean catch - Urine chery top Urine Culture - Final Procedures Date of Service Date of Service: 02/04/22 Assessment & Plan Assessment and plan (1) GIL (acute kidney injury): Status: Acute (2) CKD (chronic kidney disease) stage 4, GFR 15-29 ml/min: Status: Acute Plan kidney function at baseline GIL due to renal hypoperfusion resolved elevated serum potassium multifactorial: -compromised distal flow -type IV RTA known severe CKD baseline Scr ~ 2.6-2.8 mg/dl REC furosemide orally 40 mg bid (home dose) sodium bicarbonate 650 mg bid sodium zirconium 5 gram thrice weekly in o/p setting follow kidney function and electrolytes will arrange for outpatient follow up Time Spent With Patient Time: Total time spent is greater than 50% in coordination of care (as documented) at patient's floor/unit and/or counseling patient: Progress Note: Quality Stroke Does the patient have a stroke diagnosis?: No
--- NOTE | 2022-02-04 12:18 | PC.NURSE ---
DISCHARGE PAPERWORK REVIEWED WITH PATIENTS DAUGHTER SPENCER. IV REMOVED, TELEPACK REMOVED AT PREVIOUS TIME. ASSISTED INTO CAR BY THIS RN.
== END 2022-02-04 12:18 | disposition home health service (06) | DRG 683 ==
LOC: HO.ED 16:38 → HO.EDOVER 16:42 → HO.IMC 02-02 09:12
PROVIDERS: Internal Medicine Gastroenterology; Nurse Practitioner Family; Admitting Provider Internal Medicine; Emergency Provider Emergency Medicine; PCP Internal Medicine; Visit Provider Internal Medicine
PROC: 0D758ZZ Dilation of Esophagus, Via Natural or Artificial Opening Endoscopic (ICD-10-PCS; principal; 2022-02-02 15:30)
DX: N17.9 Acute kidney failure, unspecified (principal); I13.0 Hypertensive heart and chronic kidney disease with heart failure and stage 1 through stage 4 chronic kidney disease, or unspecified chronic kidney disease; I50.32 Chronic diastolic (congestive) heart failure; I42.8 Other cardiomyopathies; N18.4 Chronic kidney disease, stage 4 (severe); K21.9 Gastro-esophageal reflux disease without esophagitis; I25.2 Old myocardial infarction; E66.01 Morbid (severe) obesity due to excess calories; E87.5 Hyperkalemia; R13.10 Dysphagia, unspecified; G62.9 Polyneuropathy, unspecified; Z86.73 Personal history of transient ischemic attack (TIA), and cerebral infarction without residual deficits; K29.70 Gastritis, unspecified, without bleeding; K44.9 Diaphragmatic hernia without obstruction or gangrene; F39 Unspecified mood [affective] disorder; K29.80 Duodenitis without bleeding; E78.5 Hyperlipidemia, unspecified; R91.1 Solitary pulmonary nodule; K20.90 Esophagitis, unspecified without bleeding; Z68.37 Body mass index [BMI] 37.0-37.9, adult; Z20.822 Contact with and (suspected) exposure to COVID-19; Z89.512 Acquired absence of left leg below knee; Z91.040 Latex allergy status; Z79.4 Long term (current) use of insulin; Z79.02 Long term (current) use of antithrombotics/antiplatelets; Z79.82 Long term (current) use of aspirin; Z79.899 Other long term (current) drug therapy
CPT/HCPCS: 36415; 71046; 74176; 80048; 80053; 81001; 82947; 83735; 84132; 84484; 85025; 85027; 87045; 87046; 87086; 87177; 87209; 87493; 87502; 87635; 89055; 93005; 94640; 96361; 96365; 96366; 96375; 97162; 99285; C1726; C1769; J0610

== ENCOUNTER 2022-02-22 08:36 | Inpatient (IN) | payer MEDICARE, SELFPAY ==
[2022-02-22] VITALS (7 sets, daily range): BP systolic 119–164; BP diastolic 37–72; PULSE 66–72; RESP 15–22; TEMP 36.7–37.8; O2SAT 94–100; BMI 31.7
--- NOTE | ~2022-02-22 | CT_ITS ---
EXAMINATION: CHEST AND CT BRAIN WITHOUT CONTRAST. CLINICAL INFORMATION: AMS. COMPARISON: Chest 01/31/2022 TECHNIQUE: 5 mm thin axial and reformatted 2 mm thin sagittal and coronal images of brain were obtained. DLP 667. Chest one view. FINDINGS: Chest: Both lungs are fairly well-expanded and clear of acute process. The heart size is enlarged. Pulmonary vascularity is normal. There is mild spondylosis of dorsal spine. Brain: There is no acute intra-axial, extra-axial bleed, masses or midline shift. There is no acute infarction evolution. There is no edema. There is mild perivesical hypodensity in both cerebral hemispheres without mass effect. The lateral ventricles are symmetrical in size and configuration without enlargement. Bone windows reveal no calvarial abnormality. There is no scalp soft tissue abnormality. Bilateral paranasal sinuses and mastoid air cells are well-aerated except minimal mucoperiosteal thickening left maxillary sinus.. CT/CT head/brain wo con IMPRESSION: Unremarkable chest exam. There is no acute intracranial process seen.
[2022-02-22 09:19] LABS: Glucose, Whole Blood 143 mg/dL (60-115)
--- NOTE | 2022-02-22 09:39 | ED_ITS ---
HPI - General Adult General Chief complaint: Failure to Thrive Stated complaint: FAILURE TO THRIVE PER EMS Time Seen by Provider: 02/22/22 09:20 Source: family History of Present Illness HPI narrative: 66-year-old female with a past medical history of HFpEF, NICM, CKD3-4, hx CVA, HTN, HLD, DM2 s/p L BKA and multiple finger amputations, GERD, gastroparesis, IBS, presenting to the ED w/ daughter reporting AMS since coming home from previous admission at our hospital, with +failure to thrive, decreased/ refusal of p.o., and throwing herself on the floor. Daughter reports this is not my mother . Daughter is fearful for patient's safety at her home. States patient is not taking medication. Of note patient was discharged from our facility 2.5wks ago for diarrhea, weakness, GIL, and hyperkalemia. daughter reports cough intermittent SOB. Denies fever, abdominal pain, nausea, vomiting, diarrhea, recent falls/head trauma Onset (ago): week(s) Related Data Home Medications Medication Instructions Recorded Confirmed amlodipine 2.5 mg tablet 2.5 mg PO DAILY 06/20/21 02/22/22 aspirin 81 mg tablet,delayed 81 mg PO BEDTIME 06/20/21 02/22/22 release atorvastatin 80 mg tablet 80 mg PO BEDTIME 06/20/21 02/22/22 calcium carbonate 600 mg-vitamin 1 tab PO BID 06/20/21 02/22/22 D3 10 mcg (400 unit) tablet clopidogrel 75 mg tablet 75 mg PO DAILY 06/20/21 02/22/22 gabapentin 100 mg capsule 100 mg PO BID 06/20/21 02/22/22 magnesium oxide 400 mg (241.3 mg 400 mg PO BID 06/20/21 02/22/22 magnesium) tablet sertraline 50 mg tablet 50 mg PO DAILY 06/20/21 02/22/22 trazodone 50 mg tablet 50 mg PO BEDTIME 06/20/21 02/22/22 hydralazine 10 mg tablet 1 tab PO BID 01/31/22 02/22/22 insulin glargine 100 unit/mL (3 64 unit SUBCUT DAILY 02/22/22 02/22/22 mL) subcutaneous pen (Lantus Solostar U-100 Insulin) insulin lispro 100 unit/mL 8 - 12 unit SUBCUT DIRECTED 02/22/22 02/22/22 subcutaneous pen (Humalog KwikPen (U-100) Insulin) sucralfate 1 gram tablet 1 g PO QIDACHS 02/22/22 02/22/22 Previous Rx's Medication Instructions Recorded furosemide 40 mg tablet (Lasix) 40 mg PO BID 90 Days #180 tab 02/18/22 carvedilol 6.25 mg tablet 6.25 mg PO BID #60 tab 02/21/22 Allergies Allergy/AdvReac Type Severity Reaction Status Date / Time latex [LATEX] Allergy Intermediate ITCHY Verified 06/29/21 13:08 Review of Systems Review of Systems: Constitutional: No Fever, No Chills, No Fatigue, No Malaise ENT/Mouth: No Ear Pain, No Nasal Congestion, No sore throat, No Rhinorrhea Eyes: No Eye Pain, No Swelling, No Redness Cardiovascular: No Chest Pain, + SOB Respiratory: + Cough, No Sputum, No Dyspnea Gastrointestinal: No Nausea, No Vomiting, No Diarrhea, No Constipation, No Abdominal pain Genitourinary: No Dysuria, No Urinary Frequency, No Urinary Incontinence/retent ion, No Urinary Flow Changes Musculoskeletal: No joint pain, No Myalgias, No Joint Swelling Skin: No Skin Lesions, No rash Neuro: No Weakness, +AMS Yes all other systems are reviewed and are negative [facility] Past Medical History Attestation statement: The following information was validated with the patient. Medical History Acute on chronic renal failure Acute respiratory failure with hypoxia Anemia Blister of finger without infection Cholecystectomy planned CKD (chronic kidney disease) CKD (chronic kidney disease), stage IV Congestive heart failure Diabetes Diabetes mellitus Elevated d-dimer Essential hypertension Gastroparesis GERD (gastroesophageal reflux disease) Hand pain Hernia HLD (hyperlipidemia) HTN (hypertension) Hypomagnesemia Irritable bowel syndrome with diarrhea Lightheadedness Low blood pressure Non-ST elevated myocardial infarction Nonischemic cardiomyopathy Other and unspecified hyperlipidemia Pharyngoesophageal dysphagia Type 2 diabetes mellitus with unspecified complications Surgical History H/O: hysterectomy History of esophagogastroduodenoscopy (EGD) Hx of colonoscopy Hx of eye surgery Family History Family History Father Lung cancer Mother Diabetes HTN (hypertension) Heart disease Sister Diabetes Heart disease Brother Heart disease Son Diabetes Daughter Diabetes Social History Social History Household Members: Family Household Members Other:: Daughter Housing: Apartment Do you presently have visiting nurse or other home services: No Unable to assess alcohol history related to: Unknown Alcohol intake: never Patient Tobacco Use Status: Never used Tobacco Advance Directives: No Advance Directives Information Provided: No Advance Directives Date on File: 02/02/22 service: No Current occupational status: disabled Physical Exam ED Vital Signs: Vital Signs - 24 hr 02/22/22 08:53 02/22/22 09:11 02/22/22 11:49 Temperature 98.1 F 99.7 F 100.0 F Pulse Rate 70 68 68 Respiratory Rate 17 16 22 H Blood Pressure 145/41 H 133/37 L 146/44 H Pulse Oximetry 95 95 94 02/22/22 14:09 Temperature 99.2 F Pulse Rate 72 Respiratory Rate 15 Blood Pressure 147/53 H Pulse Oximetry 95 BMI result Body Mass Index 31.7 Const Other: during off into space during evaluation. Silent. A&O x3 General: cooperative and no acute distress Orientation/consciousness: patient oriented x3 Limitations: no limitations HENMT Head: Yes normal to inspection and Yes atraumatic Ears: hearing grossly normal bilaterally General nose exam: Normal external nose present Face and sinus: Yes normal facial exam Throat: Yes posterior oropharynx normal Eyes General: appearance normal, both eyes and all related structures Pupils: Equal, round and reactive pupils present EOM: EOMs intact bilaterally Neck Neck: Yes normal visual inspection and Yes no meningeal signs Resp Effort & Inspection: normal respiratory effort and no respiratory distress Auscultation: clear to auscultation bilaterally, no rales, no rhonchi and no wheezes Cardio Rate: regular rate Heart sounds: S1 normal heart sound present and S2 normal heart sound present GI Inspection: Yes normal to inspection Palpation (GI): Soft to palpation, nontender, no guarding and not rigid General: Yes no CVA tenderness Back/Spine/Pelvis Back: no CVA tenderness Skin Rashes: no rashes Wounds: no wounds Neuro General: patient oriented x3, tone normal, moves all extremities, no meningeal signs, no focal motor deficits and CN's II-XI intact bilaterally Cranial nerves: Yes Equal, round and reactive pupils present Motor exam (neuro): 5/5 motor strength present throughout Extrem General: Yes normal to inspection, Yes no pedal edema and Yes no calf tenderness Course Course Course Narrative: XR chest 1V IMPRESSION: Unremarkable chest exam. ? CT head/brain wo con IMPRESSION: There is no acute intracranial process seen. -1136-- no leukocytosis. H&H at patient's baseline. -1203-- patient with a low-grade temp 100.0 degrees > empiric IV cefepime given. Potassium elevated at 6.0 > 10 mg Lokelma ordered. Patient with acute on chronic GIL with a BUN of 34, creatinine of 3.46 > likely from dehydration - CPK is elevated to 1176. Troponin elevated at 39 (likely from renal dysfunction. Elevated in the past > Will obtain 3 hour repeat). BNP chronically elevated >> Plan to admit for further evaluation -1420-- influenza A positive Medical Decision Making [facility] Narrative Medical decision making narrative: 66-year-old female with a past medical history of HFpEF, NICM, CKD3-4, hx CVA, HTN, HLD, DM2 s/p L BKA and multiple finger amputations, GERD, gastroparesis, IBS, presenting to the ED w/ daughter reporting AMS since coming home from previous admission at our hospital, with +failure to thrive, decreased/ refusal of p.o., and throwing herself on the floor. Daughter reports this is not my mother . On exam low-grade temp 99.7 degrees, vital signs otherwise stable, patient is A&O x3 however staring off during exam, does follow commands. Exam otherwise nonfocal. Concern for infectious / metabolic etiology vs encephalopathy vs GIL vs dehydration vs subacute CVA plan: EKG, labs, UA, head CT, CXR, anticipated admission vs case management/PT Medical Records Medical records reviewed: Yes I reviewed the patient's medical records. Lab Data Lab results reviewed: Yes I reviewed the patient's lab results. Result diagrams: 02/22/22 11:18 02/22/22 11:18 Labs: Lab Results 02/22/22 02/22/22 02/22/22 Range/Units 09:06 11:18 11:18 WBC 6.7 (4.8-10.8) X10*3/uL RBC 3.64 L (4.20-5.50) X10*6/uL Hgb 9.3 L (12.0-16.0) g/dl Hct 30.4 L (37.0-47.0) % MCV 83.5 (80.0-98.0) fL MCH 25.5 L (27.0-33.0) pg MCHC 30.6 L (31.0-35.0) g/dl RDW 13.2 (11.0-16.0) % Plt Count 206 (160-400) X10*3/uL MPV 10.1 (9.4-12.3) fL Immature Gran % (Auto) 0.6 H (0.0-0.4) % Neut % (Auto) 76.4 H (45-73) % Lymph % (Auto) 7.5 L (20-40) % [place] % (Auto) 12.2 H (2-11) % Eos % (Auto) 3.0 (0-4) % Baso % (Auto) 0.3 (0-2) % Lymph # (Auto) 0.5 L (1.2-4.9) X10*3/uL [place] # (Auto) 0.8 (0.1-1.2) X10*3/uL Eos # (Auto) 0.2 (0.0-0.4) X10*3/uL Baso # (Auto) 0.0 (0.0-0.2) X10*3/uL Abs Immat Gran (auto) 0.04 H (0.00-0.03) X10*3/uL Absolute Neuts (auto) 5.1 (2.0-8.3) x10*3/uL Absolute Nucleated RBC 0.000 (0.0-0.012) X10*3/uL Nucleated RBC % (auto) 0.0 (0.0-0.2) /100WBC PT 13.8 H (9.9-13.0) SEC INR 1.2 H (0.9-1.1) Sodium (135-145) mmol/L Potassium (3.3-5.1) mmol/L Chloride (96-108) mmol/L Carbon Dioxide (22-29) mmol/L Anion Gap (12-20) BUN (9-16) mg/dL Creatinine (0.5-1.4) mg/dL Estim Creat Clear Calc Estimated GFR POC Glucose 143 H (60-115) mg/dL Random Glucose (60-115) mg/dL Calcium (8.4-10.2) mg/dL Magnesium (1.6-2.6) mg/dL Total Bilirubin (0.0-1.0) mg/dL Direct Bilirubin (0.0-0.5) mg/dL AST (5-31) U/L ALT (0-31) U/L Alkaline Phosphatase (39-117) U/L Ammonia (13-55) umol/L Total Creatine Kinase (26-140) U/L Troponin I High Sens (<3.5-17.0) ng/L B-Natriuretic Peptide (<100) pg/mL Total Protein (6.5-8.0) g/dL Albumin (3.5-5.0) g/dL Lipase (8-78) U/L Urine Color Urine Appearance Urine pH (5.0-8.0) Ur Specific [place] (1.005-1.025) Urine Protein (NEG-TRACE) MG/DL Urine Glucose (UA) (NEG) MG/DL Urine Ketones (NEG) MG/DL Urine Blood (NEG) Urine Nitrite (NEG) Ur Leukocyte Esterase (NEG) Urine RBC (0) /HPF Urine WBC (0-4) /HPF Ur Squamous Epith Cells /LPF Urine Bacteria /LPF COVID-19 (LUCIUS) (Negative) COVID-19 Clin Com Influenza Type A (IWONA) (Negative) Influenza Type B (IWONA) (Negative) Influenza A & B Note 02/22/22 02/22/22 02/22/22 Range/Units 11:18 11:18 11:18 WBC (4.8-10.8) X10*3/uL RBC (4.20-5.50) X10*6/uL Hgb (12.0-16.0) g/dl Hct (37.0-47.0) % MCV (80.0-98.0) fL MCH (27.0-33.0) pg MCHC (31.0-35.0) g/dl RDW (11.0-16.0) % Plt Count (160-400) X10*3/uL MPV (9.4-12.3) fL Immature Gran % (Auto) (0.0-0.4) % Neut % (Auto) (45-73) % Lymph % (Auto) (20-40) % [place] % (Auto) (2-11) % Eos % (Auto) (0-4) % Baso % (Auto) (0-2) % Lymph # (Auto) (1.2-4.9) X10*3/uL [place] # (Auto) (0.1-1.2) X10*3/uL Eos # (Auto) (0.0-0.4) X10*3/uL Baso # (Auto) (0.0-0.2) X10*3/uL Abs Immat Gran (auto) (0.00-0.03) X10*3/uL Absolute Neuts (auto) (2.0-8.3) x10*3/uL Absolute Nucleated RBC (0.0-0.012) X10*3/uL Nucleated RBC % (auto) (0.0-0.2) /100WBC PT (9.9-13.0) SEC INR (0.9-1.1) Sodium 133 L (135-145) mmol/L Potassium 6.0 H* (3.3-5.1) mmol/L Chloride 103 (96-108) mmol/L Carbon Dioxide 21 L (22-29) mmol/L Anion Gap 15 (12-20) BUN 34 H (9-16) mg/dL Creatinine 3.46 H (0.5-1.4) mg/dL Estim Creat Clear Calc 16.2 Estimated GFR 13 POC Glucose (60-115) mg/dL Random Glucose 151 H (60-115) mg/dL Calcium 8.8 (8.4-10.2) mg/dL Magnesium 1.7 (1.6-2.6) mg/dL Total Bilirubin 0.3 (0.0-1.0) mg/dL Direct Bilirubin 0.2 (0.0-0.5) mg/dL AST 35 H D (5-31) U/L ALT 16 (0-31) U/L Alkaline Phosphatase 144 H (39-117) U/L Ammonia 25 (13-55) umol/L Total Creatine Kinase 1176 H (26-140) U/L Troponin I High Sens 39.7 H D (<3.5-17.0) ng/L B-Natriuretic Peptide 330 H (<100) pg/mL Total Protein 7.2 (6.5-8.0) g/dL Albumin 3.5 (3.5-5.0) g/dL Lipase 19 (8-78) U/L Urine Color Urine Appearance Urine pH (5.0-8.0) Ur Specific [place] (1.005-1.025) Urine Protein (NEG-TRACE) MG/DL Urine Glucose (UA) (NEG) MG/DL Urine Ketones (NEG) MG/DL Urine Blood (NEG) Urine Nitrite (NEG) Ur Leukocyte Esterase (NEG) Urine RBC (0) /HPF Urine WBC (0-4) /HPF Ur Squamous Epith Cells /LPF Urine Bacteria /LPF COVID-19 (LUCIUS) (Negative) COVID-19 Clin Com Influenza Type A (IWONA) (Negative) Influenza Type B (IWONA) (Negative) Influenza A & B Note 02/22/22 02/22/22 02/22/22 Range/Units 11:18 11:18 13:58 WBC (4.8-10.8) X10*3/uL RBC (4.20-5.50) X10*6/uL Hgb (12.0-16.0) g/dl Hct (37.0-47.0) % MCV (80.0-98.0) fL MCH (27.0-33.0) pg MCHC (31.0-35.0) g/dl RDW (11.0-16.0) % Plt Count (160-400) X10*3/uL MPV (9.4-12.3) fL Immature Gran % (Auto) (0.0-0.4) % Neut % (Auto) (45-73) % Lymph % (Auto) (20-40) % [place] % (Auto) (2-11) % Eos % (Auto) (0-4) % Baso % (Auto) (0-2) % Lymph # (Auto) (1.2-4.9) X10*3/uL [place] # (Auto) (0.1-1.2) X10*3/uL Eos # (Auto) (0.0-0.4) X10*3/uL Baso # (Auto) (0.0-0.2) X10*3/uL Abs Immat Gran (auto) (0.00-0.03) X10*3/uL Absolute Neuts (auto) (2.0-8.3) x10*3/uL Absolute Nucleated RBC (0.0-0.012) X10*3/uL Nucleated RBC % (auto) (0.0-0.2) /100WBC PT (9.9-13.0) SEC INR (0.9-1.1) Sodium (135-145) mmol/L Potassium (3.3-5.1) mmol/L Chloride (96-108) mmol/L Carbon Dioxide (22-29) mmol/L Anion Gap (12-20) BUN (9-16) mg/dL Creatinine (0.5-1.4) mg/dL Estim Creat Clear Calc Estimated GFR POC Glucose (60-115) mg/dL Random Glucose (60-115) mg/dL Calcium (8.4-10.2) mg/dL Magnesium (1.6-2.6) mg/dL Total Bilirubin (0.0-1.0) mg/dL Direct Bilirubin (0.0-0.5) mg/dL AST (5-31) U/L ALT (0-31) U/L Alkaline Phosphatase (39-117) U/L Ammonia (13-55) umol/L Total Creatine Kinase (26-140) U/L Troponin I High Sens (<3.5-17.0) ng/L B-Natriuretic Peptide (<100) pg/mL Total Protein (6.5-8.0) g/dL Albumin (3.5-5.0) g/dL Lipase (8-78) U/L Urine Color STRAW Urine Appearance HAZY Urine pH 6.0 (5.0-8.0) Ur Specific [place] 1.025 (1.005-1.025) Urine Protein 2+ H (NEG-TRACE) MG/DL Urine Glucose (UA) NEG (NEG) MG/DL Urine Ketones NEG (NEG) MG/DL Urine Blood 1+ H (NEG) Urine Nitrite NEG (NEG) Ur Leukocyte Esterase NEG (NEG) Urine RBC 0-2 (0) /HPF Urine WBC 0-2 (0-4) /HPF Ur Squamous Epith Cells TRACE /LPF Urine Bacteria 4+ /LPF COVID-19 (LUCIUS) Negative (Negative) COVID-19 Clin Com See Note Influenza Type A (IWONA) Positive A (Negative) Influenza Type B (IWONA) Negative (Negative) Influenza A & B Note See Note ECG Data Attestation: I personally reviewed and interpreted this ECG as follows: Prior ECG tracings: available for review Interpretation: EKG normal sinus rhythm at a rate of 69. Nonspecific T-wave abnormalities. When compared to prior EKG no significant change found. QRS 130. QTC 484 Discharge Plan Discharge Clinical Impression: AMS (altered mental status), Acute hyperkalemia, GIL (acute kidney injury), Elevated CPK, Influenza A Patient Disposition: Admitted As Inpatient
--- NOTE | 2022-02-22 09:44 | ECG_ITS ---
Test Reason : failure to thrive Blood Pressure : / mmHG Vent. Rate : 069 BPM Atrial Rate : 069 BPM P-R Int : 154 ms QRS Dur : 130 ms QT Int : 452 ms P-R-T Axes : 050 -10 211 degrees QTc Int : 484 ms Normal sinus rhythm Non-specific intra-ventricular conduction block Minimal voltage criteria for LVH, may be normal variant ( Melrude product ) Marked T-wave abnormality, consider inferolateral ischemia Abnormal ECG When compared with ECG of 31-JAN-2022 11:44, No significant change was found Referred By: Rhianna Mckinnon Electronically Signed By:Nik Lou
[2022-02-22 11:25] LABS: MANUAL DIFF FLAG NO
[2022-02-22 11:29] LABS: Basophils Percent Auto 0.3 % (0-2); Eosinophils Absolute Auto 0.2 X10*3/uL (0.0-0.4); Hematocrit 30.4 % (37.0-47.0); Hemoglobin 9.3 g/dl (12.0-16.0); Imm Gran Abs Auto 0.04 X10*3/uL (0.00-0.03); Imm Gran Pct Auto 0.6 % (0.0-0.4); Lymphocytes Absolute Auto 0.5 X10*3/uL (1.2-4.9); Lymphocytes Percent Auto 7.5 % (20-40); Mean Corpuscular HGB Conc 30.6 g/dl (31.0-35.0); Mean Corpuscular Hemoglobin 25.5 pg (27.0-33.0); Mean Corpuscular Volume 83.5 fL (80.0-98.0); Mean Platelet Volume 10.1 fL (9.4-12.3); Monocytes Absolute Auto 0.8 X10*3/uL (0.1-1.2); Monocytes Percent Auto 12.2 % (2-11); Neutrophils Absolute Auto 5.1 x10*3/uL (2.0-8.3); Neutrophils Percent Auto 76.4 % (45-73); Platelet Count 206 X10*3/uL (160-400); Red Blood Count 3.64 X10*6/uL (4.20-5.50); Red Cell Distribution Width 13.2 % (11.0-16.0); White Blood Count 6.7 X10*3/uL (4.8-10.8)
[2022-02-22 11:39] LABS: Ammonia 25 umol/L (13-55)
[2022-02-22 11:42] LABS: INTERNATIONAL NORM RATIO 1.2 (0.9-1.1); Prothrombin Time 13.8 SEC (9.9-13.0)
[2022-02-22 11:48] LABS: Influenza A Positive (Negative); Influenza B2 Negative (Negative)
[2022-02-22 11:49] LABS: B Type Natriuretic Peptide 330 pg/mL (<100); COVID-19 Test Negative (Negative); IDNOW Serial# 9DB6401D; Troponin-I High Sensitivity 39.7 ng/L (<3.5-17.0)
[2022-02-22 11:53] LABS: Alanine Aminotransferase 16 U/L (0-31); Albumin Level 3.5 g/dL (3.5-5.0); Alkaline Phosphatase 144 U/L (39-117); Anion Gap 15 (12-20); Aspartate Amino Transferase 35 U/L (5-31); Bilirubin Direct 0.2 mg/dL (0.0-0.5); Bilirubin Total 0.3 mg/dL (0.0-1.0); Blood Urea Nitrogen 34 mg/dL (9-16); Calcium 8.8 mg/dL (8.4-10.2); Carbon Dioxide 21 mmol/L (22-29); Chloride 103 mmol/L (96-108); Creatinine Clr Calc Pharmacy 16.2; Estimated Glomerular Filt Rate 13; Glucose Random 151 mg/dL (60-115); Lipase 19 U/L (8-78); Magnesium 1.7 mg/dL (1.6-2.6); Sodium 133 mmol/L (135-145); Total Protein 7.2 g/dL (6.5-8.0)
--- NOTE | 2022-02-22 13:48 | PHA.MEDREC ---
Pharmacy Consult ? Medication Reconciliation Pharmacy has completed the medication reconciliation. Pt unable to verify medications, said that daughter knew what she takes. Called daughter Adelita and used server engineer, but Adelita stated that she was unsure of her medications but that she left a list. I cross checked the list with the patient's claim history and it seems to be incredibly outdated. I mostly utilized the pharmacy claim history from the past 3 months to verify current medication regimen.
[2022-02-22 14:10] LABS: Appearance Urine HAZY; Color Urine STRAW; Glucose Urine UA NEG (NEG); Leukocyte Esterase Urine NEG (NEG); Nitrite Urine NEG (NEG); Specific Gravity - Urine 1.025 (1.005-1.025); UACC Culture Trigger NO; Urine Blood 1+ (NEG); Urine Ketones NEG (NEG); Urine Protein 2+ MG/DL (NEG-TRACE)
--- NOTE | 2022-02-22 14:11 | P.HPHOSP_ITS ---
History of Present Illness Date of Service: 02/22/22 Chief Complaint: Altered mental status 66yo woman with HFpEF, NICM, CKD3-4, hx CVA, HTN, HLD, DM2 s/p L BKA and multiple finger amputations, GERD,IBS, and gastroparesis. She was brought to the ED today by daughter due to confusion, she reportedly has been increaseing more confused since last hospitalization which from January 2 to for renal failure, and dyphagia and diarrhea. Work in Ed show potassium of 6, GIL on CKD and is very confused with very foul smelling urine and 4+ bacteria. She is positive for the flu however. Ammonia level is normal. CPK is over a 1000 Review of Systems Review of Systems: Yes Unobtainable due to mental status [facility] Medical History Acute on chronic renal failure Acute respiratory failure with hypoxia Anemia Blister of finger without infection Cholecystectomy planned CKD (chronic kidney disease) CKD (chronic kidney disease), stage IV Congestive heart failure Diabetes Diabetes mellitus Elevated d-dimer Essential hypertension Gastroparesis GERD (gastroesophageal reflux disease) Hand pain Hernia HLD (hyperlipidemia) HTN (hypertension) Hypomagnesemia Irritable bowel syndrome with diarrhea Lightheadedness Low blood pressure Non-ST elevated myocardial infarction Nonischemic cardiomyopathy Other and unspecified hyperlipidemia Pharyngoesophageal dysphagia Type 2 diabetes mellitus with unspecified complications Family History Father Lung cancer Mother Diabetes HTN (hypertension) Heart disease Sister Diabetes Heart disease Brother Heart disease Son Diabetes Daughter Diabetes Surgical History H/O: hysterectomy History of esophagogastroduodenoscopy (EGD) Hx of colonoscopy Hx of eye surgery Social History Household Members: Family Household Members Other:: Daughter Housing: Apartment Do you presently have visiting nurse or other home services: No Unable to assess alcohol history related to: Unknown Alcohol intake: never Patient Tobacco Use Status: Never used Tobacco Advance Directives: No Advance Directives Information Provided: No Advance Directives Date on File: 02/02/22 service: No Current occupational status: disabled Meds Allergies Allergy/AdvReac Type Severity Reaction Status Date / Time latex [LATEX] Allergy Intermediate ITCHY Verified 06/29/21 13:08 Active Medications: Current Medications Pharmacy Consult (Consult Rx Perform Med Rec) 1 each MISCELLANE ONCE PRN PRN Reason: Consult order Home Medications Medication Instructions Recorded Confirmed Last Taken Type amlodipine 2.5 mg tablet 2.5 mg PO DAILY 06/20/21 02/22/22 01/30/22 History aspirin 81 mg tablet,delayed 81 mg PO BEDTIME 06/20/21 02/22/22 01/30/22 History release atorvastatin 80 mg tablet 80 mg PO BEDTIME 06/20/21 02/22/22 01/30/22 History calcium carbonate 600 mg-vitamin 1 tab PO BID 06/20/21 02/22/22 01/30/22 History D3 10 mcg (400 unit) tablet clopidogrel 75 mg tablet 75 mg PO DAILY 06/20/21 02/22/22 01/30/22 History gabapentin 100 mg capsule 100 mg PO BID 06/20/21 02/22/22 01/30/22 History magnesium oxide 400 mg (241.3 mg 400 mg PO BID 06/20/21 02/22/22 01/30/22 History magnesium) tablet sertraline 50 mg tablet 50 mg PO DAILY 06/20/21 02/22/22 01/30/22 History trazodone 50 mg tablet 50 mg PO BEDTIME 06/20/21 02/22/22 01/30/22 History hydralazine 10 mg tablet 1 tab PO BID 01/31/22 02/22/22 01/30/22 History insulin glargine 100 unit/mL (3 64 unit SUBCUT DAILY 02/22/22 02/22/22 Unknown History mL) subcutaneous pen (Lantus Solostar U-100 Insulin) insulin lispro 100 unit/mL 8 - 12 unit SUBCUT DIRECTED 02/22/22 02/22/22 Unknown History subcutaneous pen (Humalog KwikPen (U-100) Insulin) sucralfate 1 gram tablet 1 g PO QIDACHS 02/22/22 02/22/22 Unknown History Physical Exam Vital Signs and Narrative: Vital Signs: Last Vital Signs Temp 100.0 F 02/22/22 11:49 Pulse 68 02/22/22 11:49 Resp 22 H 02/22/22 11:49 BP 146/44 H 02/22/22 11:49 Pulse Ox 94 02/22/22 11:49 BMI result Body Mass Index 31.7 Const: Other: Constitutional: Alert, in no distress, confused Mental Status: Oriented to person, place and time. Eyes: Pupils are equal, round and reactive to light. Ear, Nose and Throat: Oropharynx clear, mucous membranes moist. Ears and nose without deformities. Respiratory: Clear to auscultation. No wheezing, rales or rhonchi. Cardiovascular: S1 S2 regular. No murmurs, rubs or gallops. Gastrointestinal: Abdomen soft, non-tender, non-distended. Normal bowel sounds.? Neurologic: Cranial nerves II-XII grossly intact. No focal neurological deficits. Moves all extremities spontaneously.? Skin: No rashes or lesions.? Musculoskeletal: No cyanosis or clubbing. Psychiatric: Normal mood and affect? Results Labs CBC and Chem 7: 02/22/22 11:18 02/22/22 11:18 Labs: Laboratory Results - last 24 hr 02/22/22 02/22/22 02/22/22 09:06 11:18 11:18 MCV 83.5 MCH 25.5 L MCHC 30.6 L RDW 13.2 Plt Count 206 MPV 10.1 Immature Gran % (Auto) 0.6 H Neut % (Auto) 76.4 H Lymph % (Auto) 7.5 L [place] % (Auto) 12.2 H Eos % (Auto) 3.0 Baso % (Auto) 0.3 Lymph # (Auto) 0.5 L [place] # (Auto) 0.8 Eos # (Auto) 0.2 Baso # (Auto) 0.0 Abs Immat Gran (auto) 0.04 H Absolute Neuts (auto) 5.1 Absolute Nucleated RBC 0.000 Nucleated RBC % (auto) 0.0 PT 13.8 H INR 1.2 H Anion Gap Estim Creat Clear Calc Estimated GFR POC Glucose 143 H Random Glucose Calcium Magnesium Total Bilirubin Direct Bilirubin AST ALT Alkaline Phosphatase Ammonia Total Creatine Kinase Troponin I High Sens B-Natriuretic Peptide Total Protein Albumin Lipase COVID-19 (LUCIUS) COVID-19 Clin Com Influenza Type A (IWONA) Influenza Type B (IWONA) Influenza A & B Note 02/22/22 02/22/22 02/22/22 11:18 11:18 11:18 MCV MCH MCHC RDW Plt Count MPV Immature Gran % (Auto) Neut % (Auto) Lymph % (Auto) [place] % (Auto) Eos % (Auto) Baso % (Auto) Lymph # (Auto) [place] # (Auto) Eos # (Auto) Baso # (Auto) Abs Immat Gran (auto) Absolute Neuts (auto) Absolute Nucleated RBC Nucleated RBC % (auto) PT INR Anion Gap 15 Estim Creat Clear Calc 16.2 Estimated GFR 13 POC Glucose Random Glucose 151 H Calcium 8.8 Magnesium 1.7 Total Bilirubin 0.3 Direct Bilirubin 0.2 AST 35 H D ALT 16 Alkaline Phosphatase 144 H Ammonia 25 Total Creatine Kinase 1176 H Troponin I High Sens 39.7 H D B-Natriuretic Peptide 330 H Total Protein 7.2 Albumin 3.5 Lipase 19 COVID-19 (LUCIUS) COVID-19 Clin Com Influenza Type A (IWONA) Influenza Type B (IWONA) Influenza A & B Note 02/22/22 02/22/22 11:18 11:18 MCV MCH MCHC RDW Plt Count MPV Immature Gran % (Auto) Neut % (Auto) Lymph % (Auto) [place] % (Auto) Eos % (Auto) Baso % (Auto) Lymph # (Auto) [place] # (Auto) Eos # (Auto) Baso # (Auto) Abs Immat Gran (auto) Absolute Neuts (auto) Absolute Nucleated RBC Nucleated RBC % (auto) PT INR Anion Gap Estim Creat Clear Calc Estimated GFR POC Glucose Random Glucose Calcium Magnesium Total Bilirubin Direct Bilirubin AST ALT Alkaline Phosphatase Ammonia Total Creatine Kinase Troponin I High Sens B-Natriuretic Peptide Total Protein Albumin Lipase COVID-19 (LUCIUS) Negative COVID-19 Clin Com See Note Influenza Type A (IWONA) Positive A Influenza Type B (IWONA) Negative Influenza A & B Note See Note Imaging Radiologist's Impressions: Impressions Head CT 02/22/22 10:02 IMPRESSION: Unremarkable chest exam. There is no acute intracranial process seen. Chest X-Ray 02/22/22 10:10 IMPRESSION: Unremarkable chest exam. There is no acute intracranial process seen. Assessment and Plan (1) AMS (altered mental status): Status: Acute (2) Acute hyperkalemia: Status: Acute (3) GIL (acute kidney injury): Status: Acute (4) Influenza A: Status: Acute (5) Elevated CPK: Status: Acute Plan 66y female with HFpEF, NICM, CKD3-4, hx CVA, HTN, HLD, DM2 s/p L BKA and multiple finger amputations, GERD, gastroparesis, and likely esophageal dysmotility s/p dilations in past .? She presents with AMS, weakness and is found to have GIL, Hyperkalemia, bacteuria causing toxic metabolic encephalopathy # toxic metabolic encephalopathy likely due to UTI as well as acute renal insufficiency hyperkalemia and flu. -treat underlying causes as below #UTI- negative nitrate and Leuk esterase and 4+ bacteria and strong order highly suggestive of clinical UTI-Ceftriaxone and wait for culture #Influeza--renal dose of Tamiflu # hyperK - admit to [facility], telemetry, give Lokelma, recheck potassium today and again in am, Nephrology consult for GIL as well #GIL on CKD3, Pre renal? due to diarrhea, IVF and recheck tomorrow # h/o dysphagia--recent EGD showed gastritis and esophagitis and supposed PPI and Sucralfate # HTN # NICM/chronic HFpEF - continue amlodipine, carvedilol, hydralazine. Hold Lasix d/t GIL # HLD # prior CVA - continue ASA + clopidogrel - continue atorvastatin, carvedilol # DM2 - basal/bolus insulin--Decarese lantus to 30 (64 at home), SSI # mood disorder - continue sertraline + trazodone # neuropathy - continue gabapentin # VTE ppx--heparin # code - full Admission will span at least 2 midnight due to need for work up for treatment of GIL, hyperkalemia? and will neeed cardiac monitoring, and this cannot be done in less acute setting Quality Stroke Does the patient have a stroke diagnosis?: No VTE Prior VTE?: No VTE Risk Level:: Medical - moderate - high VTE Device Contraindication: Treatment Not Indicated VTE Drug Contraindication: N/A - Med Ordered
[2022-02-22] MEDS: 0.9 % Sodium Chloride 1,000 ML 999 ML IV (14:13)
[2022-02-22 14:16] LABS: WBC Urine 0-2 /HPF (0-4)
[2022-02-22] MEDS: Acetaminophen 325 MG TABLET 650 MG PO (14:16)
[2022-02-22 14:17] LABS: Bacteria Urine 4+ /LPF; RBC Urine 0-2 /HPF (0); Squamous Epithelial Cell Urine TRACE /LPF
[2022-02-22] MEDS: Sodium Zirconium Cyclosilicate 10 GM POWD.PACK PO (14:17)
[2022-02-22] MEDS: cefEPime HCl 2 GM in 0.9 % Sodium Chloride 50 ML IV (14:17)
[2022-02-22 14:26] LABS: Amphetamine Screen Urine Not Detected (Not Detect); Barbiturates, Urine Not Detected (Not Detect); Benzodiazepines Screen Urine Not Detected (Not Detect); Cannabinoid Screen Urine Not Detected (Not Detect); Cocaine Screen Urine Not Detected (Not Detect); Fentanyl, urine Not Detected (Not Detect); Opiate Screen Urine Not Detected (Not Detect); Phencyclidine Screen Urine Not Detected (Not Detect)
[2022-02-22 14:32] LABS: IDNOW Serial# 16C4AD1C; Influenza A Positive (Negative); Influenza B2 Negative (Negative)
[2022-02-22 14:32] LABS: Troponin-I High Sensitivity 39.8 ng/L (<3.5-17.0)
[2022-02-22] MEDS: 0.9 % Sodium Chloride 1,000 ML 100 ML IVCONT (15:47)
[2022-02-22] MEDS: Sucralfate 1 GM TABLET PO ×2 (17:45→22:12)
[2022-02-22] MEDS: Heparin Sodium,Porcine 5,000 UNIT/ML VIAL 5000 UNIT SUBCUT (17:45)
[2022-02-22] MEDS: Oseltamivir Phosphate 30 MG CAPSULE PO (17:45)
--- NOTE | 2022-02-22 21:55 | MHC.CM.PN ---
Pt with AMS. Unable to interview patient. CM spoke with HCP/daughter, Adelita Messer ([phone]). HCP is on file. J&J/ NO booster. Pt lives with daughter. Uses a wheelchair. Has no services. Daughter is concerned that pt is weak and confused and may need STR. CM did explained that pt has the Flu and her labs are elevated, so that may be the cause of some of her confusion. Daughter is concerned that her mother may need STR to gain her strength prior to coming home. D/C plan: ?STR. Pt will need a PT assessment prior to discharge. Pt may need transportation at D/C. No referrals placed at this time pending hospital course and pt mental status. CM to follow for d/c needs.
[2022-02-22 21:59] LABS: Glucose, Whole Blood 161 mg/dL (60-115)
[2022-02-22] MEDS: Gabapentin 100 MG CAPSULE PO (22:02)
[2022-02-22] MEDS: Aspirin Enteric Coated 81 MG TABLET.DR PO (22:02)
[2022-02-22] MEDS: Insulin Lispro 100 UNIT/ML 3 ML VIAL SUBCUT (22:02)
[2022-02-22] MEDS: carvediloL 6.25 MG TABLET PO (22:02)
[2022-02-22] MEDS: Atorvastatin Calcium 80 MG TABLET PO (22:02)
[2022-02-22] MEDS: Calcium + Vitamin D 250 MG TABLET 500 MG PO (22:02)
[2022-02-22] MEDS: Magnesium Oxide 400 MG TABLET PO (22:03)
[2022-02-22] MEDS: traZODone HCL 50 MG TABLET PO (22:03)
[2022-02-22] MEDS: hydrALAZINE HCl 10 MG TABLET PO (22:03)
[2022-02-23 01:36] LABS: Glucose, Whole Blood 129 mg/dL (60-115)
[2022-02-23 01:36] LABS: Glucose, Whole Blood 69 mg/dL (60-115)
[2022-02-23 02:30] VITALS: BP 118/56; PULSE 70; RESP 17; TEMP 36.8; O2SAT 96
[2022-02-23 02:48] VITALS: BMI 32.0
--- NOTE | 2022-02-23 03:32 | PC.NURSE ---
PATIENT ADMITTED TO ROOM 363 VIA HOSPITAL BED FRO ED SETTING. PATIENT IS AWAKE BUT VAGUE WITH INTERMITTENT CONFUSION. HFR PROTOCOL INITIATED, PT HAS HX LEFT BKA. AND STATED MANY FALLS AT HOME. BASELINE IS ASSIST TO A WHEELCHAIR. PT STATES DOES NOT WEAR HER PROSTHESIS. [employer]IED [employer] UTILIZED FOR ADMISSION. SAFETY, AND CALL [employer] DEMONSTRATED AND REINFORCED IN HER LANGUAGE. UNABLE TO ANSWER SOME QUESTIONS DUE TO CONFUSION. NEW IV SITE PLACED TO RIGHT FOREARM, IVF'S, REPOSITIONING, AND TELE PACK PUT IN PLACE. WILL CONTINUE TO MONITOR CLOSELY.
[2022-02-23] MEDS: 0.9 % Sodium Chloride 1,000 ML 100 ML IVCONT ×2 (06:14→22:05)
[2022-02-23] MEDS: Heparin Sodium,Porcine 5,000 UNIT/ML VIAL 5000 UNIT SUBCUT ×2 (06:23→17:10)
[2022-02-23 06:48] LABS: Anion Gap 14 (12-20); Blood Urea Nitrogen 35 mg/dL (9-16); Carbon Dioxide 19 mmol/L (22-29); Chloride 107 mmol/L (96-108); Creatinine Clr Calc Pharmacy 17.9; Estimated Glomerular Filt Rate 15; Glucose Random 125 mg/dL (60-115); Potassium 5.6 mmol/L (3.3-5.1); Sodium 134 mmol/L (135-145)
[2022-02-23 06:56] LABS: Calcium 7.9 mg/dL (8.4-10.2)
[2022-02-23] MEDS: Oseltamivir Phosphate 30 MG CAPSULE PO ×2 (07:15→17:10)
[2022-02-23 07:30] VITALS: BP 144/63; PULSE 67; RESP 18; TEMP 37.2; O2SAT 94
[2022-02-23 07:42] LABS: Glucose, Whole Blood 97 mg/dL (60-115)
[2022-02-23] MEDS: amLODIPine Besylate 2.5 MG TABLET PO (08:22)
[2022-02-23] MEDS: Sucralfate 1 GM TABLET PO ×4 (08:22→21:30)
[2022-02-23] MEDS: Calcium + Vitamin D 250 MG TABLET 500 MG PO ×2 (08:22→21:28)
[2022-02-23] MEDS: Magnesium Oxide 400 MG TABLET PO ×2 (08:22→21:30)
[2022-02-23] MEDS: Gabapentin 100 MG CAPSULE PO ×2 (08:22→21:29)
[2022-02-23] MEDS: Sertraline HCL 50 MG TABLET PO (08:22)
[2022-02-23] MEDS: carvediloL 6.25 MG TABLET PO (08:22)
[2022-02-23] MEDS: hydrALAZINE HCl 10 MG TABLET PO (08:22)
[2022-02-23] MEDS: cefTRIAXone sodium 1 GM in 0.9 % Sodium Chloride 50 ML IV ×2 (08:23→21:21)
[2022-02-23] MEDS: Clopidogrel Bisulfate 75 MG TABLET PO (08:23)
[2022-02-23] MEDS: Insulin Glargine,Hum.rec.anlog 100 UNIT/ML 10 ML VIAL 30 UNIT SUBCUT (08:23)
[2022-02-23] MEDS: Sodium Polystyrene Sulfon/Sorb 15 GM/60 ML ORAL.SUSP PO (08:37)
[2022-02-23 11:10] VITALS: BP 148/63; PULSE 65; RESP 18; TEMP 37; O2SAT 96
[2022-02-23 11:25] LABS: Glucose, Whole Blood 164 mg/dL (60-115)
[2022-02-23 13:50] LABS: Potassium 5.2 mmol/L (3.3-5.1)
--- NOTE | 2022-02-23 15:19 | HO.PM.IMPN ---
Subjective Subjective Date of Service: 02/23/22 Interval History: Toxic metabolic encephalopathy, GIL, UTI, hyperkalemia Review of Systems Patient seems more awake and alert than yesterday Patient denies any abdominal pain or nausea or vomiting or fever or chills. Physical Exam Vital Signs: Vital Signs: Last Vital Signs Temp 98.6 F 02/23/22 11:10 Pulse 65 02/23/22 11:10 Resp 18 02/23/22 11:10 BP 148/63 H 02/23/22 11:10 Pulse Ox 96 02/23/22 11:10 BMI result Body Mass Index 32.0 Appearance: Alert.? Oriented X2.? not in distress.? cvs: rrr, [id number]. res: clear to auscultation ,no rhonchii or wheezing abd: no rebound or guarding ,nt, bs present. ext pulses present , no cyanosis ,left bka. neuro: axo2 , nonfocal. Objective Data Active Medications Acetaminophen (Acetaminophen 325 Mg Tablet) 650 mg PO Q6H PRN PRN Reason: Pain, Mild (Pain Scale 1-3) Amlodipine Besylate (Amlodipine Besylate 2.5 Mg Tablet) 2.5 mg PO DAILY [facility]; Protocol Last Admin: 02/23/22 08:22 Dose: 2.5 mg Documented by: AMINA Aspirin (Aspirin Enteric Coated 81 Mg Tablet.) 81 mg PO BEDTIME [facility] Last Admin: 02/22/22 22:02 Dose: 81 mg Documented by: ZAIN Atorvastatin Calcium (Atorvastatin Calcium 80 Mg Tablet) 80 mg PO BEDTIME [facility] Last Admin: 02/22/22 22:02 Dose: 80 mg Documented by: ZAIN Calcium Carbonate/Cholecalciferol (Calcium + Vitamin D 250 Mg Tablet) 500 mg PO BID [facility] Last Admin: 02/23/22 08:22 Dose: 500 mg Documented by: AMINA Carvedilol (Carvedilol 6.25 Mg Tablet) 6.25 mg PO BID [facility]; Protocol Last Admin: 02/23/22 08:22 Dose: 6.25 mg Documented by: AMINA Clopidogrel Bisulfate (Clopidogrel Bisulfate 75 Mg Tablet) 75 mg PO DAILY [facility] Last Admin: 02/23/22 08:23 Dose: 75 mg Documented by: AMINA Gabapentin (Gabapentin 100 Mg Capsule) 100 mg PO BID [facility] Last Admin: 02/23/22 08:22 Dose: 100 mg Documented by: AMINA Heparin Sodium (Porcine) (Heparin Sodium,Porcine 5,000 Unit/Ml Vial) 5,000 unit SUBCUT Q12H [facility] Last Admin: 02/23/22 06:23 Dose: 5,000 unit Documented by: YVES Hydralazine HCl (Hydralazine Hcl 10 Mg Tablet) 10 mg PO BID [facility]; Protocol Last Admin: 02/23/22 08:22 Dose: 10 mg Documented by: AMINA Sodium Chloride (Ns) 1,000 mls @ 100 mls/hr IVCONT .Q10H [facility] Last Admin: 02/23/22 06:14 Dose: 100 mls/hr Documented by: YVES Ceftriaxone Sodium 1 gm/ (Sodium Chloride) 50 mls @ 100 mls/hr IV Q12H [facility] Last Infusion: 02/23/22 10:17 Dose: 0 mls/hr Documented by: AMINA Insulin Glargine (Insulin Glargine,Hum.Rec.Anlog 100 Unit/Ml 10 Ml Vial) 30 unit SUBCUT DAILY [facility] Last Admin: 02/23/22 08:23 Dose: 30 unit Documented by: AMINA Insulin Human Lispro (Insulin Lispro 100 Unit/Ml 3 Ml Vial) 0 unit SUBCUT QIDACHS [facility]; Protocol Last Admin: 02/23/22 12:02 Dose: Not Given Documented by: AMINA Non-Admin Reason: pt not eating lunch Magnesium Oxide (Magnesium Oxide 400 Mg Tablet) 400 mg PO BID [facility] Last Admin: 02/23/22 08:22 Dose: 400 mg Documented by: AMINA Oseltamivir Phosphate (Oseltamivir Phosphate 30 Mg Capsule) 30 mg PO Q12H [facility] Last Admin: 02/23/22 07:15 Dose: 30 mg Documented by: YVES Pharmacy Consult (Consult Rx Perform Med Rec) 1 each MISCELLANE ONCE PRN PRN Reason: Consult order Sertraline HCl (Sertraline Hcl 50 Mg Tablet) 50 mg PO DAILY [facility] Last Admin: 02/23/22 08:22 Dose: 50 mg Documented by: AMINA Sodium Chloride (0.9 % Sodium Chloride Flush 3 Ml Syringe) 3 ml IVFLUSH QSHIFT [facility] Last Admin: 02/23/22 08:22 Dose: Not Given Documented by: AMINA Non-Admin Reason: IV Running Sucralfate (Sucralfate 1 Gm Tablet) 1 gm PO QIDACHS [facility] Last Admin: 02/23/22 11:59 Dose: 1 gm Documented by: AMINA Trazodone HCl (Trazodone Hcl 50 Mg Tablet) 50 mg PO BEDTIME [facility] Last Admin: 02/22/22 22:03 Dose: 50 mg Documented by: ZAIN Labs CBC & Chem 7: 02/22/22 11:18 02/23/22 13:20 Labs: Laboratory Results - last 24 hr 02/22/22 02/22/22 02/22/22 09:06 17:51 19:08 Anion Gap Estim Creat Clear Calc Estimated GFR POC Glucose 143 H 69 129 H Random Glucose Calcium 02/22/22 02/23/22 02/23/22 21:53 05:30 07:28 Anion Gap 14 Estim Creat Clear Calc 17.9 Estimated GFR 15 POC Glucose 161 H 97 Random Glucose 125 H Calcium 7.9 L D 02/23/22 11:14 Anion Gap Estim Creat Clear Calc Estimated GFR POC Glucose 164 H Random Glucose Calcium Assessment and Plan (1) Dysphagia: Status: Acute (2) CKD (chronic kidney disease) stage 4, GFR 15-29 ml/min: Status: Acute Plan 66y female with HFpEF, NICM, CKD3-4, hx CVA, HTN, HLD, DM2 s/p L BKA and multiple finger amputations, GERD, gastroparesis, and likely esophageal dysmotility s/p dilations in past .? She presents with AMS, weakness and is found to have GIL, Hyperkalemia, bacteuria causing toxic metabolic encephalopathy toxic metabolic encephalopathy likely due to UTI as well as acute renal insufficiency hyperkalemia and flu. -treat underlying causes as below UTI- negative nitrate and Leuk esterase and 4+ bacteria and strong order highly suggestive of clinical UTI-Ceftriaxone and wait for culture urine culture ordered Influeza--renal dose of Tamiflu hyperK given kayxelate , recheck potassium today trending dowm Nephrology consult for GIL as well-slightly better -continue gentle hydration hydration , monitor BMP. GIL on CKD3, Pre renal? due to diarrhea, IVF and recheck tomorrow h/o dysphagia--recent EGD showed gastritis and esophagitis and supposed PPI and Sucralfate HTN/NICM/chronic HFpEF - continue amlodipine, carvedilol,? hydralazine. Hold Lasix d/t GIL HLD prior CVA - continue ASA + clopidogrel - continue atorvastatin, carvedilol DM2 - basal/bolus insulin--Decarese lantus to 30 (64 at home), SSI mood disorder - continue sertraline + trazodone neuropathy - continue gabapentin VTE ppx--heparin code - full inpatient need : Toxic metabolic encephalopathy, hyperkalemia, AKA on CKD. Try to call the daughter over the phone: Daughter could not talk because she was commuting Quality Stroke Does the patient have a stroke diagnosis?: No VTE Prior VTE?: No VTE Risk Level:: Medical - moderate - high VTE Device Contraindication: Treatment Not Indicated VTE Drug Contraindication: N/A - Med Ordered
[2022-02-23 15:48] VITALS: BP 161/71; PULSE 65; RESP 20; TEMP 36.4; O2SAT 96
[2022-02-23 16:03] LABS: Glucose, Whole Blood 228 mg/dL (60-115)
[2022-02-23] MEDS: Insulin Lispro 100 UNIT/ML 3 ML VIAL SUBCUT ×2 (17:10→21:29)
[2022-02-23] MEDS: 0.9 % Sodium Chloride 250 ML 70 ML IV (17:11)
--- NOTE | 2022-02-23 18:57 | PM.PNNEP ---
Subjective Subjective Date of Service: 02/23/22 Interval history: Toxic metabolic encephalopathy, GIL, UTI, hyperkalemia Physical Exam Vital Signs: Vital Signs: Last Vital Signs Temp 97.5 F 02/23/22 15:48 Pulse 65 02/23/22 15:48 Resp 20 02/23/22 15:48 BP 161/71 H 02/23/22 15:48 Pulse Ox 96 02/23/22 15:48 BMI result Body Mass Index 32.0 Const: General: comfortable and no acute distress HEENT: Head: Yes normocephalic Neck: Neck: Yes no JVD Resp: Auscultation: clear to auscultation bilaterally Cardio: Jugular venous distension: no JVD Rate: regular rate Rhythm: regular rhythm Heart sounds: S1 normal heart sound present and S2 normal heart sound present GI: Auscultation: normal bowel sounds Neuro: General: moves all extremities Extrem: General: Yes no joint enlargement and Yes no clubbing, cyanosis or edema Objective Data Labs CBC & Chem 7: 02/22/22 11:18 02/23/22 13:20 Labs: Laboratory Results - last 24 hr 02/22/22 02/22/22 02/22/22 09:06 17:51 19:08 Sodium Potassium Chloride Carbon Dioxide Anion Gap BUN Creatinine Estim Creat Clear Calc Estimated GFR POC Glucose 143 H 69 129 H Random Glucose Calcium 02/22/22 02/23/22 02/23/22 21:53 05:30 07:28 Sodium 134 L Potassium 5.6 H Chloride 107 Carbon Dioxide 19 L Anion Gap 14 BUN 35 H Creatinine 3.17 H Estim Creat Clear Calc 17.9 Estimated GFR 15 POC Glucose 161 H 97 Random Glucose 125 H Calcium 7.9 L D 02/23/22 02/23/22 02/23/22 11:14 13:20 15:52 Sodium Potassium 5.2 H Chloride Carbon Dioxide Anion Gap BUN Creatinine Estim Creat Clear Calc Estimated GFR POC Glucose 164 H 228 H Random Glucose Calcium Procedures Date of Service Date of Service: 02/23/22 Assessment & Plan Assessment and plan (1) CKD (chronic kidney disease) stage 4, GFR 15-29 ml/min: Status: Acute (2) GIL (acute kidney injury): Status: Acute Assessment and Plan: GIL due to renal hypoperfusion - resolved elevated serum potassium multifactorial: -compromised distal flow -type IV RTA -suggest Na-HCO3 650 tid. -Lokelma 10 Gm now then 5G lokelma daily/scheduled. known severe CKD baseline Scr ~ 2.6-2.8 mg/dl REC At time of dc, furosemide orally 40 mg bid (home dose) sodium bicarbonate 650 mg tid sodium zirconium 5 gram qd follow kidney function and electrolytes will arrange for outpatient follow up (3) Acute hyperkalemia: Status: Acute Time Spent With Patient Time: Total time spent is greater than 50% in coordination of care (as documented) at patient's floor/unit and/or counseling patient: Progress Note: Quality Stroke Does the patient have a stroke diagnosis?: No
[2022-02-23 19:54] LABS: Glucose, Whole Blood 172 mg/dL (60-115)
[2022-02-23 20:00] VITALS: BP 101/58; PULSE 82; RESP 18; TEMP 37.1; O2SAT 97
[2022-02-23] MEDS: Aspirin Enteric Coated 81 MG TABLET.DR PO (21:28)
[2022-02-23] MEDS: Atorvastatin Calcium 80 MG TABLET PO (21:28)
[2022-02-23] MEDS: 0.9 % Sodium Chloride Flush 3 ML SYRINGE IVFLUSH (21:30)
[2022-02-23] MEDS: traZODone HCL 50 MG TABLET PO (21:30)
--- NOTE | 2022-02-23 22:06 | PC.NURSE ---
Patient was noted to have soft BP of 101/58. Md was notified. BP night time meds were held
[2022-02-23 23:36] VITALS: BP 144/69; PULSE 69; RESP 17; TEMP 36.3; O2SAT 94
[2022-02-24 03:05] VITALS: BP 164/76; PULSE 68; RESP 20; TEMP 36.1; O2SAT 95
[2022-02-24] MEDS: Oseltamivir Phosphate 30 MG CAPSULE PO ×2 (05:38→17:59)
[2022-02-24] MEDS: Heparin Sodium,Porcine 5,000 UNIT/ML VIAL 5000 UNIT SUBCUT ×2 (05:38→17:59)
[2022-02-24 06:33] LABS: Anion Gap 15 (12-20); Blood Urea Nitrogen 31 mg/dL (9-16); Calcium 8.1 mg/dL (8.4-10.2); Carbon Dioxide 17 mmol/L (22-29); Chloride 111 mmol/L (96-108); Creatinine Clr Calc Pharmacy 21.4; Estimated Glomerular Filt Rate 18; Glucose Random 103 mg/dL (60-115); Potassium 5.3 mmol/L (3.3-5.1); Sodium 138 mmol/L (135-145)
[2022-02-24 07:21] VITALS: BP 143/78; PULSE 70; RESP 18; TEMP 36.9; O2SAT 97
[2022-02-24] MEDS: 0.9 % Sodium Chloride 1,000 ML 100 ML IVCONT (07:39)
[2022-02-24] MEDS: Sucralfate 1 GM TABLET PO ×3 (07:41→19:52)
[2022-02-24] MEDS: cefTRIAXone sodium 1 GM in 0.9 % Sodium Chloride 50 ML IV ×2 (07:41→19:50)
[2022-02-24 07:42] LABS: Glucose, Whole Blood 102 mg/dL (60-115)
[2022-02-24] MEDS: amLODIPine Besylate 2.5 MG TABLET PO (10:54)
[2022-02-24] MEDS: hydrALAZINE HCl 10 MG TABLET PO ×2 (10:54→19:50)
[2022-02-24] MEDS: Sertraline HCL 50 MG TABLET PO (10:55)
[2022-02-24] MEDS: Calcium + Vitamin D 250 MG TABLET 500 MG PO ×2 (10:55→19:52)
[2022-02-24] MEDS: carvediloL 6.25 MG TABLET PO ×2 (10:55→19:52)
[2022-02-24] MEDS: Gabapentin 100 MG CAPSULE PO ×2 (10:55→19:50)
[2022-02-24] MEDS: Magnesium Oxide 400 MG TABLET PO ×2 (10:55→19:52)
[2022-02-24] MEDS: Clopidogrel Bisulfate 75 MG TABLET PO (10:55)
--- NOTE | 2022-02-24 11:18 | MHC.CM.PN ---
Addendum entered by Reshma Gardner RN 02/24/22 11:30: CM CONTACTED PT'S DTR SPENCER VIA PHONE [employer], SPENCER REPORTS SHE STILL WANTS STR FOR PT PT HAS BEEN REFUSING MEDS, VERY CONFUSED AND UNPREDICTABLE W/BEHAVIORS, SPENCER REPORTS SHE HASN'T BEEN SLEEPING SO SHE CAN MONITOR PT SHE IS WORRIED SHE WILL HURT HERSELF. SPENCER HAS NO PREFERENCES OF FACILITIES HOWEVER SHE WOULD LIKE PT TO REMAIN CLOSE TO HOME POSSIBLE, REFERRALS TO BE PLACED. PT HAS [facility] WHICH WILL COVER STR OR A CORRECTION/LTC BED IF NEEDED. Original Note: EMR REVIEWED, PT + FOR FLU A, PT REMAINS HYPERKALEMIC, CR TRENDING DOWN, PER HOSPITALIST PT ENCEPHALOPATHY IMPROVING HOWEVER DOES NOT FEEL PT WILL BE BACK TO BASELINE WHILE IN HOSPITAL, PT WILL CONT IV FLUIDS, NEPHRO TO FOLLOW, ANTIC PT WILL BE READY FOR D/C IN 1-2 DAYS, CM WILL CONTACT FAMILY VIA PROCESS TECH TO DISCUSS DISPO.
[2022-02-24] MEDS: Insulin Glargine,Hum.rec.anlog 100 UNIT/ML 10 ML VIAL 30 UNIT SUBCUT (11:38)
[2022-02-24 11:53] LABS: Glucose, Whole Blood 142 mg/dL (60-115)
[2022-02-24 11:56] VITALS: BP 128/91; PULSE 66; RESP 18; TEMP 36.7; O2SAT 95
--- NOTE | 2022-02-24 14:31 | P.PNIM_ITS ---
Subjective Subjective Date of Service: 02/24/22 Interval History: Toxic metabolic encephalopathy, GIL, UTI, hyperkalemia Review of Systems Mental status seems slightly better than yesterday, but her daughter still feels that it is not near baseline-when went to talk to the daughter she already left. Patient otherwise denies any nausea or vomiting or abdominal pain or fever or chills. Physical Exam Vital Signs: Vital Signs: Last Vital Signs Temp 98.0 F 02/24/22 11:56 Pulse 66 02/24/22 11:56 Resp 18 02/24/22 11:56 BP 128/91 H 02/24/22 11:56 Pulse Ox 95 02/24/22 11:56 BMI result Body Mass Index 32.0 Appearance: Alert.? Oriented X2.? not in distress.? cvs: rrr, [id number]. res: clear to auscultation ,no rhonchii or wheezing abd: no rebound or guarding ,nt, bs present. ext pulses present , no cyanosis ,left bka. neuro: axo2 , nonfocal. Objective Data Active Medications Acetaminophen (Acetaminophen 325 Mg Tablet) 650 mg PO Q6H PRN PRN Reason: Pain, Mild (Pain Scale 1-3) Amlodipine Besylate (Amlodipine Besylate 2.5 Mg Tablet) 2.5 mg PO DAILY [facility]; Protocol Last Admin: 02/24/22 10:54 Dose: 2.5 mg Documented by: DANNI Aspirin (Aspirin Enteric Coated 81 Mg Tablet.) 81 mg PO BEDTIME [facility] Last Admin: 02/23/22 21:28 Dose: 81 mg Documented by: JACK Atorvastatin Calcium (Atorvastatin Calcium 80 Mg Tablet) 80 mg PO BEDTIME [facility] Last Admin: 02/23/22 21:28 Dose: 80 mg Documented by: JACK Calcium Carbonate/Cholecalciferol (Calcium + Vitamin D 250 Mg Tablet) 500 mg PO BID [facility] Last Admin: 02/24/22 10:55 Dose: 500 mg Documented by: DANNI Carvedilol (Carvedilol 6.25 Mg Tablet) 6.25 mg PO BID [facility]; Protocol Last Admin: 02/24/22 10:55 Dose: 6.25 mg Documented by: DANNI Clopidogrel Bisulfate (Clopidogrel Bisulfate 75 Mg Tablet) 75 mg PO DAILY [facility] Last Admin: 02/24/22 10:55 Dose: 75 mg Documented by: DANNI Gabapentin (Gabapentin 100 Mg Capsule) 100 mg PO BID [facility] Last Admin: 02/24/22 10:55 Dose: 100 mg Documented by: DANNI Heparin Sodium (Porcine) (Heparin Sodium,Porcine 5,000 Unit/Ml Vial) 5,000 unit SUBCUT Q12H [facility] Last Admin: 02/24/22 05:38 Dose: 5,000 unit Documented by: LIANA Hydralazine HCl (Hydralazine Hcl 10 Mg Tablet) 10 mg PO BID [facility]; Protocol Last Admin: 02/24/22 10:54 Dose: 10 mg Documented by: DANNI Ceftriaxone Sodium 1 gm/ (Sodium Chloride) 50 mls @ 100 mls/hr IV Q12H [facility] Last Infusion: 02/24/22 11:06 Dose: 0 mls/hr Documented by: DANNI Insulin Glargine (Insulin Glargine,Hum.Rec.Anlog 100 Unit/Ml 10 Ml Vial) 30 unit SUBCUT DAILY [facility] Last Admin: 02/24/22 11:38 Dose: 30 unit Documented by: DANNI Insulin Human Lispro (Insulin Lispro 100 Unit/Ml 3 Ml Vial) 0 unit SUBCUT QIDACHS [facility]; Protocol Last Admin: 02/24/22 11:39 Dose: Not Given Documented by: DANNI Non-Admin Reason: No Insulin Coverage Magnesium Oxide (Magnesium Oxide 400 Mg Tablet) 400 mg PO BID [facility] Last Admin: 02/24/22 10:55 Dose: 400 mg Documented by: DANNI Oseltamivir Phosphate (Oseltamivir Phosphate 30 Mg Capsule) 30 mg PO Q12H [facility] Last Admin: 02/24/22 05:38 Dose: 30 mg Documented by: LIANA Pharmacy Consult (Consult Rx Perform Med Rec) 1 each MISCELLANE ONCE PRN PRN Reason: Consult order Sertraline HCl (Sertraline Hcl 50 Mg Tablet) 50 mg PO DAILY [facility] Last Admin: 02/24/22 10:55 Dose: 50 mg Documented by: DANNI Sodium Chloride (0.9 % Sodium Chloride Flush 3 Ml Syringe) 3 ml IVFLUSH QSHIFT [facility] Last Admin: 02/24/22 07:44 Dose: Not Given Documented by: COURT Non-Admin Reason: IV Running Sucralfate (Sucralfate 1 Gm Tablet) 1 gm PO QIDACHS [facility] Last Admin: 02/24/22 10:55 Dose: 1 gm Documented by: DANNI Trazodone HCl (Trazodone Hcl 50 Mg Tablet) 50 mg PO BEDTIME [facility] Last Admin: 02/23/22 21:30 Dose: 50 mg Documented by: JACK Labs CBC & Chem 7: 02/22/22 11:18 02/24/22 05:58 Labs: Laboratory Results - last 24 hr 02/23/22 02/23/22 02/24/22 15:52 19:14 05:58 Anion Gap 15 Estim Creat Clear Calc 21.4 Estimated GFR 18 POC Glucose 228 H 172 H Random Glucose 103 Calcium 8.1 L 02/24/22 02/24/22 07:19 11:31 Anion Gap Estim Creat Clear Calc Estimated GFR POC Glucose 102 142 H Random Glucose Calcium Assessment and Plan (1) Acute hyperkalemia: Status: Acute (2) GIL (acute kidney injury): Status: Acute Plan 66y female with HFpEF, NICM, CKD3-4, hx CVA, HTN, HLD, DM2 s/p L BKA and multiple finger amputations, GERD, gastroparesis, and likely esophageal dysmotility s/p dilations in past .? She presents with AMS, weakness and is found to have GIL, Hyperkalemia, bacteuria causing toxic metabolic encephalopathy ?toxic metabolic encephalopathy likely due to UTI as well as acute renal insufficiency hyperkalemia and flu. -treat underlying causes as below UTI- negative nitrate and Leuk esterase and 4+ bacteria and strong order highly suggestive of clinical UTI-Ceftriaxone and wait for culture urine culture ordered Influeza--renal dose of Tamiflu ?hyperK still elevated given lokalema ?Nephrology consult for GIL as well-seems improved to the baseline , monitor BMP. GIL on CKD3: creatinine seems near basline off ivf ?h/o dysphagia--recent EGD showed gastritis and esophagitis and supposed PPI and Sucralfate ?HTN/NICM/chronic HFpEF - continue amlodipine, carvedilol,? hydralazine. Hold Lasix d/t GIL HLD ?prior CVA - continue ASA + clopidogrel - continue atorvastatin, carvedilol ?DM2: fs 100-200 range. continue current regimen, adjusted lantus to 25 units ?mood disorder - continue sertraline + trazodone ?neuropathy - continue gabapentin ?VTE ppx--heparin ? inpatient need :? Toxic metabolic encephalopathy,uti,influenza A,may need rehab once imporves to baseline. Quality Stroke Does the patient have a stroke diagnosis?: No VTE Prior VTE?: No VTE Risk Level:: Medical - moderate - high VTE Device Contraindication: Treatment Not Indicated VTE Drug Contraindication: N/A - Med Ordered
[2022-02-24 15:24] VITALS: BP 123/85; PULSE 67; RESP 18; TEMP 37.1; O2SAT 93
[2022-02-24 15:29] LABS: Glucose, Whole Blood 179 mg/dL (60-115)
[2022-02-24] MEDS: Sodium Zirconium Cyclosilicate 5 GM POWD.PACK PO (15:33)
[2022-02-24] MEDS: 0.9 % Sodium Chloride Flush 3 ML SYRINGE IVFLUSH ×2 (15:34→19:52)
--- NOTE | 2022-02-24 16:13 | PM.PNNEP ---
Subjective Subjective Date of Service: 02/24/22 Interval history: Toxic metabolic encephalopathy, GIL, UTI, hyperkalemia CHart Reviewed. Events noted. Physical Exam Vital Signs: Vital Signs: Last Vital Signs Temp 98.7 F 02/24/22 15:24 Pulse 67 02/24/22 15:24 Resp 18 02/24/22 15:24 BP 123/85 02/24/22 15:24 Pulse Ox 93 02/24/22 15:24 BMI result Body Mass Index 32.0 Const: General: cooperative and comfortable HEENT: Head: Yes normocephalic Neck: Neck: Yes no JVD Resp: Auscultation: clear to auscultation bilaterally Cardio: Jugular venous distension: no JVD Rate: regular rate Rhythm: regular rhythm Heart sounds: S1 normal heart sound present and S2 normal heart sound present GI: Auscultation: normal bowel sounds Neuro: General: moves all extremities Extrem: General: Yes no clubbing, cyanosis or edema Objective Data Labs CBC & Chem 7: 02/22/22 11:18 02/24/22 05:58 Labs: Laboratory Results - last 24 hr 02/23/22 02/24/22 02/24/22 19:14 05:58 07:19 Sodium 138 Potassium 5.3 H Chloride 111 H Carbon Dioxide 17 L Anion Gap 15 BUN 31 H Creatinine 2.64 H Estim Creat Clear Calc 21.4 Estimated GFR 18 POC Glucose 172 H 102 Random Glucose 103 Calcium 8.1 L 02/24/22 02/24/22 11:31 15:21 Sodium Potassium Chloride Carbon Dioxide Anion Gap BUN Creatinine Estim Creat Clear Calc Estimated GFR POC Glucose 142 H 179 H Random Glucose Calcium Procedures Date of Service Date of Service: 02/24/22 Assessment & Plan Assessment and plan (1) CKD (chronic kidney disease) stage 4, GFR 15-29 ml/min: Status: Acute Assessment and Plan: GIL due to renal hypoperfusion - resolved elevated serum potassium multi-factorial: -compromised distal flow -type IV RTA -suggest Na-HCO3 650 tid. -Lokelma 10 Gm now then 5G lokelma daily/scheduled. known severe CKD baseline Scr ~ 2.6-2.8 mg/dl REC Start sodium bicarbonate 650 mg tid sodium zirconium 5 gram qd At time of dc, furosemide orally 40 mg bid (home dose) follow kidney function and electrolytes will arrange for outpatient follow up (2) Acute hyperkalemia: Status: Acute Time Spent With Patient Time: Total time spent is greater than 50% in coordination of care (as documented) at patient's floor/unit and/or counseling patient: Progress Note: Quality Stroke Does the patient have a stroke diagnosis?: No
[2022-02-24] MEDS: Insulin Lispro 100 UNIT/ML 3 ML VIAL SUBCUT ×2 (17:24→20:39)
[2022-02-24 19:35] VITALS: BP 150/68; PULSE 68; RESP 17; TEMP 36.4; O2SAT 94
[2022-02-24] MEDS: Aspirin Enteric Coated 81 MG TABLET.DR PO (19:51)
[2022-02-24] MEDS: Atorvastatin Calcium 80 MG TABLET PO (19:52)
[2022-02-24] MEDS: traZODone HCL 50 MG TABLET PO (19:52)
[2022-02-24 20:16] LABS: Glucose, Whole Blood 165 mg/dL (60-115)
[2022-02-24 23:53] VITALS: BP 138/62; PULSE 84; RESP 17; TEMP 36.6; O2SAT 95
[2022-02-25 04:00] VITALS: BP 168/72; PULSE 66; RESP 18; TEMP 36.6; O2SAT 95
[2022-02-25] MEDS: Oseltamivir Phosphate 30 MG CAPSULE PO ×2 (06:04→17:27)
[2022-02-25] MEDS: Heparin Sodium,Porcine 5,000 UNIT/ML VIAL 5000 UNIT SUBCUT ×2 (06:04→17:27)
[2022-02-25 07:46] VITALS: BP 193/81; PULSE 68; RESP 20; TEMP 36.8; O2SAT 95
[2022-02-25 07:55] LABS: Glucose, Whole Blood 136 mg/dL (60-115)
[2022-02-25 08:17] LABS: Potassium 5.4 mmol/L (3.3-5.1)
[2022-02-25] MEDS: cefTRIAXone sodium 1 GM in 0.9 % Sodium Chloride 50 ML IV ×2 (08:29→20:22)
[2022-02-25] MEDS: carvediloL 6.25 MG TABLET PO ×2 (08:30→20:22)
[2022-02-25] MEDS: amLODIPine Besylate 2.5 MG TABLET PO ×2 (08:30→12:34)
[2022-02-25] MEDS: Gabapentin 100 MG CAPSULE PO ×2 (08:30→20:22)
[2022-02-25] MEDS: hydrALAZINE HCl 10 MG TABLET PO ×2 (08:30→20:22)
[2022-02-25] MEDS: Calcium + Vitamin D 250 MG TABLET 500 MG PO ×2 (08:30→20:22)
[2022-02-25] MEDS: Sucralfate 1 GM TABLET PO ×4 (08:30→20:22)
[2022-02-25] MEDS: 0.9 % Sodium Chloride Flush 3 ML SYRINGE IVFLUSH ×3 (08:30→20:23)
[2022-02-25] MEDS: Clopidogrel Bisulfate 75 MG TABLET PO (08:30)
[2022-02-25] MEDS: Sertraline HCL 50 MG TABLET PO (08:31)
[2022-02-25] MEDS: Magnesium Oxide 400 MG TABLET PO ×2 (08:31→20:22)
[2022-02-25] MEDS: Insulin Glargine,Hum.rec.anlog 100 UNIT/ML 10 ML VIAL 25 UNIT SUBCUT (08:31)
[2022-02-25 11:14] VITALS: BP 180/74; PULSE 71; RESP 18; TEMP 36.5; O2SAT 95
[2022-02-25 11:43] LABS: Glucose, Whole Blood 182 mg/dL (60-115)
[2022-02-25] MEDS: Insulin Lispro 100 UNIT/ML 3 ML VIAL SUBCUT ×3 (12:33→21:10)
[2022-02-25] MEDS: Sodium Zirconium Cyclosilicate 5 GM POWD.PACK PO (12:34)
--- NOTE | 2022-02-25 12:35 | HO.PM.IMPN ---
Subjective Subjective Date of Service: 02/25/22 Interval History: Toxic metabolic encephalopathy, GIL, UTI, hyperkalemia Review of Systems Mental status slowly improving, but still somewhat confused. Denies any nausea vomiting or abdominal pain or fever chills. Physical Exam Vital Signs: Vital Signs: Last Vital Signs Temp 97.7 F 02/25/22 11:14 Pulse 71 02/25/22 11:14 Resp 18 02/25/22 11:14 BP 180/74 H 02/25/22 11:14 Pulse Ox 95 02/25/22 11:14 BMI result Body Mass Index 32.0 Appearance: Alert.? Oriented X2.? not in distress.? cvs: rrr, [id number]. res: clear to auscultation ,no rhonchii or wheezing abd: no rebound or guarding ,nt, bs present. ext pulses present , no cyanosis ,left bka. neuro: axo2 , nonfocal. Objective Data Active Medications Acetaminophen (Acetaminophen 325 Mg Tablet) 650 mg PO Q6H PRN PRN Reason: Pain, Mild (Pain Scale 1-3) Amlodipine Besylate (Amlodipine Besylate 5 Mg Tablet) 5 mg PO DAILY [facility]; Protocol Aspirin (Aspirin Enteric Coated 81 Mg Tablet.) 81 mg PO BEDTIME [facility] Last Admin: 02/24/22 19:51 Dose: 81 mg Documented by: LIANA Atorvastatin Calcium (Atorvastatin Calcium 80 Mg Tablet) 80 mg PO BEDTIME [facility] Last Admin: 02/24/22 19:52 Dose: 80 mg Documented by: LIANA Calcium Carbonate/Cholecalciferol (Calcium + Vitamin D 250 Mg Tablet) 500 mg PO BID [facility] Last Admin: 02/25/22 08:30 Dose: 500 mg Documented by: ORI Carvedilol (Carvedilol 6.25 Mg Tablet) 6.25 mg PO BID [facility]; Protocol Last Admin: 02/25/22 08:30 Dose: 6.25 mg Documented by: ORI Clopidogrel Bisulfate (Clopidogrel Bisulfate 75 Mg Tablet) 75 mg PO DAILY [facility] Last Admin: 02/25/22 08:30 Dose: 75 mg Documented by: ORI Gabapentin (Gabapentin 100 Mg Capsule) 100 mg PO BID [facility] Last Admin: 02/25/22 08:30 Dose: 100 mg Documented by: ORI Heparin Sodium (Porcine) (Heparin Sodium,Porcine 5,000 Unit/Ml Vial) 5,000 unit SUBCUT Q12H [facility] Last Admin: 02/25/22 06:04 Dose: 5,000 unit Documented by: LIANA Hydralazine HCl (Hydralazine Hcl 10 Mg Tablet) 10 mg PO BID [facility]; Protocol Last Admin: 02/25/22 08:30 Dose: 10 mg Documented by: ORI Ceftriaxone Sodium 1 gm/ (Sodium Chloride) 50 mls @ 100 mls/hr IV Q12H [facility] Last Infusion: 02/25/22 09:04 Dose: 0 mls/hr Documented by: FRANCES Insulin Glargine (Insulin Glargine,Hum.Rec.Anlog 100 Unit/Ml 10 Ml Vial) 25 unit SUBCUT DAILY [facility] Last Admin: 02/25/22 08:31 Dose: 25 unit Documented by: ORI Insulin Human Lispro (Insulin Lispro 100 Unit/Ml 3 Ml Vial) 0 unit SUBCUT QIDACHS [facility]; Protocol Last Admin: 02/25/22 08:22 Dose: Not Given Documented by: ORI Non-Admin Reason: No Insulin Coverage Magnesium Oxide (Magnesium Oxide 400 Mg Tablet) 400 mg PO BID [facility] Last Admin: 02/25/22 08:31 Dose: 400 mg Documented by: ORI Oseltamivir Phosphate (Oseltamivir Phosphate 30 Mg Capsule) 30 mg PO Q12H [facility] Last Admin: 02/25/22 06:04 Dose: 30 mg Documented by: LIANA Pharmacy Consult (Consult Rx Perform Med Rec) 1 each MISCELLANE ONCE PRN PRN Reason: Consult order Sertraline HCl (Sertraline Hcl 50 Mg Tablet) 50 mg PO DAILY [facility] Last Admin: 02/25/22 08:31 Dose: 50 mg Documented by: ORI Sodium Bicarbonate (Sodium Bicarbonate 650 Mg Tablet) 650 mg PO TID [facility] Sodium Chloride (0.9 % Sodium Chloride Flush 3 Ml Syringe) 3 ml IVFLUSH QSHIFT [facility] Last Admin: 02/25/22 08:30 Dose: 3 ml Documented by: ORI Sodium Zirconium Cyclosilicate (Sodium Zirconium Cyclosilicate 5 Gm Powd.Pack) 5 gm PO DAILY [facility] Sucralfate (Sucralfate 1 Gm Tablet) 1 gm PO QIDACHS [facility] Last Admin: 02/25/22 08:30 Dose: 1 gm Documented by: ORI Trazodone HCl (Trazodone Hcl 50 Mg Tablet) 50 mg PO BEDTIME [facility] Last Admin: 02/24/22 19:52 Dose: 50 mg Documented by: LIANA Labs CBC & Chem 7: 02/22/22 11:18 02/25/22 07:54 Labs: Laboratory Results - last 24 hr 02/24/22 02/24/22 02/25/22 15:21 20:12 07:50 POC Glucose 179 H 165 H 136 H 02/25/22 11:16 POC Glucose 182 H Microbiology Microbiology Results: Microbiology 02/24/22 17:23 Urine Culture - Preliminary Urine Catheterized - Straight Catheter No growth to date. Assessment and Plan (1) AMS (altered mental status): Status: Acute (2) Acute hyperkalemia: Status: Acute (3) GIL (acute kidney injury): Status: Acute Plan 66y female with HFpEF, NICM, CKD3-4, hx CVA, HTN, HLD, DM2 s/p L BKA and multiple finger amputations, GERD, gastroparesis, and likely esophageal dysmotility s/p dilations in past .? She presents with AMS, weakness and is found to have GIL, Hyperkalemia, bacteuria causing toxic metabolic encephalopathy ?toxic metabolic encephalopathy likely due to UTI as well as acute renal insufficiency hyperkalemia and flu. ct head on admission was fine ,ammonia fine sats fine , hypontremia resolved ,ckd also near baseline improving slowly -treat underlying causes as below( continue IV antibiotic for UTI, and Tamiflu for flow, out out of bed) UTI- negative nitrate and Leuk esterase and 4+ bacteria and strong order highly suggestive of clinical UTI-Ceftriaxone and wait for culture urine culture ordered Influeza--renal dose of Tamiflu ?hyperK still elevated given lokalema ?Nephrology consult for GIL as well-seems improved to the baseline , monitor BMP. GIL on CKD3: creatinine seems near basline off ivf ?h/o dysphagia--recent EGD showed gastritis and esophagitis and supposed PPI and Sucralfate ?HTN/NICM/chronic HFpEF - continue amlodipine, carvedilol,? hydralazine. Hold Lasix d/t GIL HLD ?prior CVA - continue ASA + clopidogrel - continue atorvastatin, carvedilol ?DM2: fs 140-180 range. continue current regimen ?mood disorder - continue sertraline + trazodone ?neuropathy - continue gabapentin ?VTE ppx--heparin ? inpatient need :? Toxic metabolic encephalopathy,uti,influenza A,may need rehab once imporves to baseline( daughter might not able to take her home). Quality Stroke Does the patient have a stroke diagnosis?: No VTE Prior VTE?: No VTE Risk Level:: Medical - moderate - high VTE Device Contraindication: Treatment Not Indicated VTE Drug Contraindication: N/A - Med Ordered
[2022-02-25] MEDS: Sodium Bicarbonate 650 MG TABLET PO ×2 (14:33→20:22)
[2022-02-25 16:00] VITALS: BP 164/86; PULSE 78; RESP 18; TEMP 36.7; O2SAT 98
[2022-02-25 16:09] LABS: Glucose, Whole Blood 169 mg/dL (60-115)
--- NOTE | 2022-02-25 16:35 | PM.PNNEP ---
Subjective Subjective Date of Service: 02/25/22 Interval history: Seen and exained, events noted Physical Exam Vital Signs: Vital Signs: Last Vital Signs Temp 98.0 F 02/25/22 16:00 Pulse 78 02/25/22 16:00 Resp 18 02/25/22 16:00 BP 164/86 H 02/25/22 16:00 Pulse Ox 98 02/25/22 16:00 BMI result Body Mass Index 32.0 Const: General: cooperative, comfortable and no acute distress HEENT: Head: Yes normocephalic Neck: Neck: Yes no JVD Resp: Auscultation: clear to auscultation bilaterally Cardio: Jugular venous distension: no JVD Rate: regular rate Rhythm: regular rhythm Heart sounds: S1 normal heart sound present and S2 normal heart sound present GI: Auscultation: normal bowel sounds Neuro: General: moves all extremities Extrem: General: Yes no joint enlargement and Yes no clubbing, cyanosis or edema Objective Data Labs CBC & Chem 7: 02/22/22 11:18 02/25/22 07:54 Labs: Laboratory Results - last 24 hr 02/24/22 02/25/22 02/25/22 20:12 07:50 07:54 Potassium 5.4 H POC Glucose 165 H 136 H 02/25/22 02/25/22 11:16 15:22 Potassium POC Glucose 182 H 169 H Microbiology Microbiology Results: Microbiology 02/24/22 17:23 Urine Catheterized - Straight Catheter Urine Culture - Preliminary No growth to date. Procedures Date of Service Date of Service: 02/25/22 Assessment & Plan Assessment and plan (1) CKD (chronic kidney disease) stage 4, GFR 15-29 ml/min: Status: Acute Assessment and Plan: 1. GIL: resolved 2. CKD 4: BSL SCr 2.5-2.8 3. NAGMA 4. HyperK: d/t CKD and low K 5. MBD of CKD REC: cot NaHCO3 repalcement; track UOP/resnl func; avoid Ntoxins; low K diet and daily lokelma (2) Acute hyperkalemia: Status: Acute Time Spent With Patient Time: Total time spent is greater than 50% in coordination of care (as documented) at patient's floor/unit and/or counseling patient: Progress Note: Quality Stroke Does the patient have a stroke diagnosis?: No
[2022-02-25 20:00] VITALS: BP 189/92; PULSE 78; RESP 18; TEMP 37.1; O2SAT 99
[2022-02-25] MEDS: Aspirin Enteric Coated 81 MG TABLET.DR PO (20:22)
[2022-02-25] MEDS: Atorvastatin Calcium 80 MG TABLET PO (20:22)
[2022-02-25] MEDS: traZODone HCL 50 MG TABLET PO (20:22)
[2022-02-25 20:42] LABS: Glucose, Whole Blood 152 mg/dL (60-115)
[2022-02-26] VITALS: BP 156/70; PULSE 69; RESP 17; TEMP 36.2; O2SAT 96
[2022-02-26 04:00] VITALS: BP 155/70; PULSE 66; RESP 17; TEMP 36.5; O2SAT 96
[2022-02-26] MEDS: Oseltamivir Phosphate 30 MG CAPSULE PO ×2 (06:02→17:27)
[2022-02-26] MEDS: Heparin Sodium,Porcine 5,000 UNIT/ML VIAL 5000 UNIT SUBCUT ×2 (06:02→17:27)
[2022-02-26 06:26] LABS: Anion Gap 13 (12-20); Blood Urea Nitrogen 29 mg/dL (9-16); Calcium 8.5 mg/dL (8.4-10.2); Carbon Dioxide 21 mmol/L (22-29); Chloride 111 mmol/L (96-108); Creatinine Clr Calc Pharmacy 24.8; Estimated Glomerular Filt Rate 21; Glucose Random 90 mg/dL (60-115); Potassium 5.7 mmol/L (3.3-5.1); Sodium 139 mmol/L (135-145)
[2022-02-26 07:14] VITALS: BP 149/65; PULSE 66; RESP 18; TEMP 36.5; O2SAT 92
[2022-02-26 07:40] LABS: Glucose, Whole Blood 88 mg/dL (60-115)
[2022-02-26] MEDS: cefTRIAXone sodium 1 GM in 0.9 % Sodium Chloride 50 ML IV ×2 (09:13→21:38)
[2022-02-26] MEDS: Sodium Zirconium Cyclosilicate 5 GM POWD.PACK PO (09:15)
[2022-02-26] MEDS: 0.9 % Sodium Chloride Flush 3 ML SYRINGE IVFLUSH ×3 (09:16→21:38)
[2022-02-26] MEDS: Gabapentin 100 MG CAPSULE PO ×2 (09:18→21:36)
[2022-02-26] MEDS: Clopidogrel Bisulfate 75 MG TABLET PO (09:18)
[2022-02-26] MEDS: Sertraline HCL 50 MG TABLET PO (09:18)
[2022-02-26] MEDS: Sodium Bicarbonate 650 MG TABLET PO ×3 (09:18→21:35)
[2022-02-26] MEDS: carvediloL 6.25 MG TABLET PO ×2 (09:18→21:35)
[2022-02-26] MEDS: Sucralfate 1 GM TABLET PO ×4 (09:18→21:36)
[2022-02-26] MEDS: Calcium + Vitamin D 250 MG TABLET 500 MG PO ×2 (09:18→21:36)
[2022-02-26] MEDS: Magnesium Oxide 400 MG TABLET PO ×2 (09:18→21:36)
[2022-02-26] MEDS: amLODIPine Besylate 5 MG TABLET PO (09:19)
[2022-02-26] MEDS: hydrALAZINE HCl 10 MG TABLET PO ×2 (09:19→21:36)
[2022-02-26] MEDS: Insulin Glargine,Hum.rec.anlog 100 UNIT/ML 10 ML VIAL 25 UNIT SUBCUT (09:19)
--- NOTE | 2022-02-26 10:41 | PM.DS ---
DS: Providers Provider Date of Service: 03/03/22 Date of admission: 02/22/22 14:55 Primary care physician: Alexys Avila MD Consults: 02/23/22 11:23 Consult to Nephrology Routine Consulting Provider: Nahum Trevizo Reason for consultation: gil on ckd , hyperkalemia Has provider been notified: No DS: Diagnosis Discharge Diagnosis (1) Acute hyperkalemia: Status: Resolved DS: Summary Hospital Course Hospital Course: From H&P on day of admission 66yo woman with HFpEF, NICM, CKD3-4, hx CVA, HTN, HLD, DM2 s/p L BKA and multiple finger amputations, GERD,IBS,? and gastroparesis. She was brought to the ED today by daughter due to confusion, she reportedly has been increaseing more confused since last hospitalization which from January 2 to for renal failure, and dyphagia and diarrhea. Work in Ed show potassium of 6, GIL on CKD and is very confused with very foul smelling urine and 4+ bacteria. She is positive for the flu however.? Ammonia level is normal.? CPK is over a 1000 Discharge diagnoses: Toxic metabolic encephalopathy UTI Influenza GIL on CKD 3 Hyperkalemia Dysphagia Hospital course: toxic metabolic encephalopathy was multifactorial from UTI, acute renal insufficiency, hyperkalemia and flu. She is back to her baseline mental status after treatment of underlying issues. UTI- negative culture, treated with Ceftriaxone x 5 days Influenza- completed renal dose of Tamiflu Chronic hyperKalemia--Treated with Lokelma, Kayexalate.Seen by nephrology. Potassium was persistently high and will be on maintenance Lokelma, 10 mg daily however this was not covered by her health insurance and the co-pay was significantly high therefore Nephrology recommended kayexalate 15 gm daily and to repeat labs in 1 week Matabolic acidosis - bicarb was low and she was started on sodium bicarbonate supplementation. Bicarbonate has improved to 27 on day of discharge. discussed with nephrology, recommended to discharge with sodium bicarbonate twice daily. Repeat labs in 1 week GIL on CKD3, Pre renal due to diarrhea, treated with IVF and GIL is resolved. h/o dysphagia--recent EGD showed gastritis and esophagitis, continued on PPI and Sucralfate HTN/NICM/chronic HFpEF continue amlodipine, carvedilol,?hydralazine. Lasix was on hold due to GIL but resuming upon discharge No other changes made to medications Time Spent with Patient Time attestation: Total time spent providing and/or coordinating discharge services: Discharge coordination time: Greater than 30 minutes Quality: Safe Use of Opioids Does Pt have an Active Cancer Diagnosis on the Problem List?: No Quality: Stroke Does the patient have a stroke diagnosis?: No Physical Exam Vital Signs: Vital Signs: Last Vital Signs Temp 97.7 F 02/26/22 07:14 Pulse 66 02/26/22 07:14 Resp 18 02/26/22 07:14 BP 149/65 H 02/26/22 07:14 Pulse Ox 92 02/26/22 07:14 BMI result Body Mass Index 32.0 DS: Data Data Completed and Pending Completed studies during hospitalization [Text1]: Procedures Dilation of Esophagus, Via Natural or Artificial Opening Endoscopic (01/31/22) Dilation of Upper Esophagus, Via Natural or Artificial Opening Endoscopic (08/16/21) Introduction of Other Thrombolytic into Peripheral Vein, Percutaneous Approach (06/05/21) Transfusion of Nonautologous Red Blood Cells into Peripheral Vein, Percutaneous Approach (12/24/20) Labs on day of discharge: Laboratory Results - last 24 hr 02/25/22 02/25/22 02/25/22 11:16 15:22 19:30 Sodium Potassium Chloride Carbon Dioxide Anion Gap BUN Creatinine Estim Creat Clear Calc Estimated GFR POC Glucose 182 H 169 H 152 H Random Glucose Calcium 02/26/22 02/26/22 05:19 07:12 Sodium 139 Potassium 5.7 H Chloride 111 H Carbon Dioxide 21 L Anion Gap 13 BUN 29 H Creatinine 2.28 H Estim Creat Clear Calc 24.8 Estimated GFR 21 POC Glucose 88 Random Glucose 90 Calcium 8.5 Preliminary micro results at discharge 02/24/22 17:23 Urine Culture - Preliminary Urine Catheterized - Straight Catheter No growth to date. Discharge Plan Discharge Patient Disposition: Home Health Service Discharge Diagnosis: encephalopathy, GIL, hyperkalemia, Flu A Referrals: [facility] [Outside] - 1 Day ([facility], A NURSE WILL BE CALLING TO SCHEDULE FIRST VISIT) Alexys Avila MD [Primary Care Provider] - 1 Week Discharge Medications: New amlodipine 10 mg Tablet 10 mg PO DAILY 30 Days Qty: 30 0RF Protocol: Hold for SBP< HOLD for SBP < : 90 famotidine 40 mg tablet 40 mg PO BID 30 Days Qty: 60 0RF sodium bicarbonate 650 mg Tablet 650 mg PO BID 30 Days Qty: 60 0RF sodium polystyrene sulfonate Powder 15 g PO DAILY 30 Days Qty: 454 0RF Continued furosemide [Lasix] 40 mg tablet 40 mg PO BID 90 Days Qty: 180 0RF Rx Instructions: Please call and schedule cardiology appt. carvedilol 6.25 mg tablet 6.25 mg PO BID Qty: 60 5RF Rx Instructions: must administer with a meal/food - Take one tablet twice daily atorvastatin 80 mg tablet 80 mg PO BEDTIME trazodone 50 mg tablet 50 mg PO BEDTIME clopidogrel 75 mg tablet 75 mg PO DAILY aspirin 81 mg tablet,delayed release (DR/EC) 81 mg PO BEDTIME magnesium oxide 400 mg (241.3 mg magnesium) tablet 400 mg PO BID sertraline 50 mg tablet 50 mg PO DAILY calcium carbonate-vitamin D3 600 mg(1,500mg) -400 unit tablet 1 tab PO BID Discontinued amlodipine 2.5 mg tablet 2.5 mg PO DAILY No Action amoxicillin 250 mg capsule 250 mg PO Q12H 5 Days Qty: 10 0RF insulin glargine [Lantus Solostar U-100 Insulin] 100 unit/mL (3 mL) insulin pen 10 unit subcut DAILY dexamethasone [Decadron] 6 mg tablet 6 mg PO DAILY Qty: 4 0RF Discharge Orders: Discharge Order (Routine); Ordered 03/03/22 Ordered By: Keysha Sánchez Activity on Discharge: As tolerated Stand Alone Forms: Patient Portal Discharge page Other Ambulatory Orders: Basic Metabolic Panel (Routine) Timeframe: 1 Week Facility: [facility] - Location: Laboratory Ordered By: Keysha Sánchez Care Plan Goals: see below Health Concerns: Elevated potassium levels UTI Flu Plan of Treatment: your dose of norvasc has been increased to 10 mg daily take famotidine as previously prescribed take sodium bicarb twice daily as prescribed take kayexalate daily as prescribed for high potassium call to schedule follow up appointment with nephrology call to schedule follow up with PCP repeat labs in one week Assessment: see discharge summary Discharge Date/Time: 03/03/22 18:45
--- NOTE | 2022-02-26 10:48 | P.PNIM_ITS ---
Subjective Subjective Date of Service: 02/26/22 Interval History: f/u altered mental status, GIL, hyperkalemia, UTI. Interval history altered mental status is resolved, GIL resolved, hyperkalemia persists. Review of Systems Gen: no fever Resp: no sob, no cough CV: no chest, no AWAD, no leg edema GI: No n/v, no abd pain Neuro: No confusion Physical Exam Vital Signs: Vital Signs: Last Vital Signs Temp 97.7 F 02/26/22 07:14 Pulse 66 02/26/22 07:14 Resp 18 02/26/22 07:14 BP 149/65 H 02/26/22 07:14 Pulse Ox 92 02/26/22 07:14 BMI result Body Mass Index 32.0 Const: Other: General: AO X 2, no acute distress Resp: CTA bilateral CVS: S1,S2,RRR GI: +BS, NT, no distention Skin: No rash Neuro: motor grossly intact Psych: appropriate affect Objective Data Active Medications Acetaminophen (Acetaminophen 325 Mg Tablet) 650 mg PO Q6H PRN PRN Reason: Pain, Mild (Pain Scale 1-3) Amlodipine Besylate (Amlodipine Besylate 5 Mg Tablet) 5 mg PO DAILY [facility]; Protocol Last Admin: 02/26/22 09:19 Dose: 5 mg Documented by: BOBO Aspirin (Aspirin Enteric Coated 81 Mg Tablet.) 81 mg PO BEDTIME [facility] Last Admin: 02/25/22 20:22 Dose: 81 mg Documented by: KJ Atorvastatin Calcium (Atorvastatin Calcium 80 Mg Tablet) 80 mg PO BEDTIME [facility] Last Admin: 02/25/22 20:22 Dose: 80 mg Documented by: KJ Calcium Carbonate/Cholecalciferol (Calcium + Vitamin D 250 Mg Tablet) 500 mg PO BID [facility] Last Admin: 02/26/22 09:18 Dose: 500 mg Documented by: BOBO Carvedilol (Carvedilol 6.25 Mg Tablet) 6.25 mg PO BID [facility]; Protocol Last Admin: 02/26/22 09:18 Dose: 6.25 mg Documented by: BOBO Clopidogrel Bisulfate (Clopidogrel Bisulfate 75 Mg Tablet) 75 mg PO DAILY [facility] Last Admin: 02/26/22 09:18 Dose: 75 mg Documented by: BOBO Gabapentin (Gabapentin 100 Mg Capsule) 100 mg PO BID [facility] Last Admin: 02/26/22 09:18 Dose: 100 mg Documented by: BOBO Heparin Sodium (Porcine) (Heparin Sodium,Porcine 5,000 Unit/Ml Vial) 5,000 unit SUBCUT Q12H [facility] Last Admin: 02/26/22 06:02 Dose: 5,000 unit Documented by: KJ Hydralazine HCl (Hydralazine Hcl 10 Mg Tablet) 10 mg PO BID [facility]; Protocol Last Admin: 02/26/22 09:19 Dose: 10 mg Documented by: BOBO Ceftriaxone Sodium 1 gm/ (Sodium Chloride) 50 mls @ 100 mls/hr IV Q12H [facility] Last Infusion: 02/26/22 10:02 Dose: 0 mls/hr Documented by: BOBO Insulin Glargine (Insulin Glargine,Hum.Rec.Anlog 100 Unit/Ml 10 Ml Vial) 25 unit SUBCUT DAILY [facility] Last Admin: 02/26/22 09:19 Dose: 25 unit Documented by: BOBO Insulin Human Lispro (Insulin Lispro 100 Unit/Ml 3 Ml Vial) 0 unit SUBCUT QIDAC HS [facility]; Protocol Last Admin: 02/26/22 09:12 Dose: Not Given Documented by: BOBO Non-Admin Reason: No Insulin Coverage Magnesium Oxide (Magnesium Oxide 400 Mg Tablet) 400 mg PO BID [facility] Last Admin: 02/26/22 09:18 Dose: 400 mg Documented by: BOBO Oseltamivir Phosphate (Oseltamivir Phosphate 30 Mg Capsule) 30 mg PO Q12H [facility] Last Admin: 02/26/22 06:02 Dose: 30 mg Documented by: KJ Pharmacy Consult (Consult Rx Perform Med Rec) 1 each MISCELLANE ONCE PRN PRN Reason: Consult order Sertraline HCl (Sertraline Hcl 50 Mg Tablet) 50 mg PO DAILY [facility] Last Admin: 02/26/22 09:18 Dose: 50 mg Documented by: BOBO Sodium Bicarbonate (Sodium Bicarbonate 650 Mg Tablet) 650 mg PO TID [facility] Last Admin: 02/26/22 09:18 Dose: 650 mg Documented by: BOBO Sodium Chloride (0.9 % Sodium Chloride Flush 3 Ml Syringe) 3 ml IVFLUSH QSHIFT [facility] Last Admin: 02/26/22 09:16 Dose: 3 ml Documented by: BOBO Sodium Zirconium Cyclosilicate (Sodium Zirconium Cyclosilicate 5 Gm Powd.Pack) 5 gm PO DAILY [facility] Last Admin: 02/26/22 09:15 Dose: 5 gm Documented by: BOBO Sucralfate (Sucralfate 1 Gm Tablet) 1 gm PO QIDACHS [facility] Last Admin: 02/26/22 09:18 Dose: 1 gm Documented by: BOBO Trazodone HCl (Trazodone Hcl 50 Mg Tablet) 50 mg PO BEDTIME [facility] Last Admin: 02/25/22 20:22 Dose: 50 mg Documented by: ODRISM Labs CBC & Chem 7: 02/22/22 11:18 02/26/22 05:19 Labs: Laboratory Results - last 24 hr 02/25/22 02/25/22 02/25/22 11:16 15:22 19:30 Anion Gap Estim Creat Clear Calc Estimated GFR POC Glucose 182 H 169 H 152 H Random Glucose Calcium 02/26/22 02/26/22 05:19 07:12 Anion Gap 13 Estim Creat Clear Calc 24.8 Estimated GFR 21 POC Glucose 88 Random Glucose 90 Calcium 8.5 Microbiology Microbiology Results: Microbiology 02/24/22 17:23 Urine Culture - Preliminary Urine Catheterized - Straight Catheter No growth to date. Assessment and Plan (1) AMS (altered mental status): Status: Acute (2) Acute hyperkalemia: Status: Acute (3) GIL (acute kidney injury): Status: Acute (4) Influenza A: Status: Acute Plan # toxic metabolic encephalopathy from UTI, acute renal insufficienc, hyperkalemia and flu. She is back to her baseline mental status after treatment of underlying issues #UTI- negative culture, treated with Ceftriaxone x 5 days #Influeza--treated with renal dose of Tamiflu # Chronic hyperKalemia--Treated with Lokelma, Kayexalate.. Potassium is persistently high and will be on maintainace Lokelma. No PINO/ARB, aldactone or #GIL on CKD3, Pre renal? due to diarrhea, treated with IVF and GIL is resolved # h/o dysphagia--recent EGD showed gastritis and esophagitis and supposed PPI and Sucralfate # HTN # NICM/chronic HFpEF - continue amlodipine, carvedilol,? hydralazine. Lasix was on hold due to GIL bur resuming upon discharge # HLD # prior CVA - continue ASA + clopidogrel - continue atorvastatin, carvedilol # DM2 - basal/bolus insulin--Continue Insulin # mood disorder - continue sertraline + trazodone # neuropathy - continue gabapentin Inpatient due to hyperkalemia requiring treatment and close monitoring of potassium level and frequent not able to do at home possibly home if repeat K is better after Kayexalate Quality Stroke Does the patient have a stroke diagnosis?: No VTE Prior VTE?: No VTE Risk Level:: Medical - moderate - high VTE Device Contraindication: Treatment Not Indicated VTE Drug Contraindication: N/A - Med Ordered
[2022-02-26 11:39] VITALS: BP 178/77; PULSE 64; RESP 18; TEMP 36.8; O2SAT 95
[2022-02-26 11:56] LABS: Glucose, Whole Blood 145 mg/dL (60-115)
[2022-02-26] MEDS: Sodium Polystyrene Sulfon/Sorb 15 GM/60 ML ORAL.SUSP 30 GM PO (12:16)
--- NOTE | 2022-02-26 12:59 | PM.PNNEP ---
Subjective Subjective Date of Service: 02/26/22 Interval history: seen and examined, events noted Physical Exam Vital Signs: Vital Signs: Last Vital Signs Temp 98.3 F 02/26/22 11:39 Pulse 64 02/26/22 11:39 Resp 18 02/26/22 11:39 BP 178/77 H 02/26/22 11:39 Pulse Ox 95 02/26/22 11:39 BMI result Body Mass Index 32.0 Const: General: cooperative, comfortable and no acute distress HEENT: Head: Yes normocephalic Neck: Neck: Yes no JVD Resp: Auscultation: clear to auscultation bilaterally Cardio: Jugular venous distension: no JVD Rate: regular rate Rhythm: regular rhythm Heart sounds: S1 normal heart sound present and S2 normal heart sound present GI: Auscultation: normal bowel sounds Neuro: General: moves all extremities Extrem: General: Yes no joint enlargement and Yes no clubbing, cyanosis or edema Objective Data Labs CBC & Chem 7: 02/22/22 11:18 02/26/22 05:19 Labs: Laboratory Results - last 24 hr 02/25/22 02/25/22 02/26/22 15:22 19:30 05:19 Sodium 139 Potassium 5.7 H Chloride 111 H Carbon Dioxide 21 L Anion Gap 13 BUN 29 H Creatinine 2.28 H Estim Creat Clear Calc 24.8 Estimated GFR 21 POC Glucose 169 H 152 H Random Glucose 90 Calcium 8.5 02/26/22 02/26/22 07:12 11:39 Sodium Potassium Chloride Carbon Dioxide Anion Gap BUN Creatinine Estim Creat Clear Calc Estimated GFR POC Glucose 88 145 H Random Glucose Calcium Microbiology Microbiology Results: Microbiology 02/24/22 17:23 Urine Catheterized - Straight Catheter Urine Culture - Preliminary No growth to date. Procedures Date of Service Date of Service: 02/26/22 Assessment & Plan Assessment and plan (1) CKD (chronic kidney disease) stage 4, GFR 15-29 ml/min: Status: Acute Assessment and Plan: 1. GIL: resolved 2. CKD 4: BSL SCr 2.5-2.8 3. NAGMA 4. HyperK: d/t CKD and low K 5. MBD of CKD REC: cont NaHCO3 repalcement; increase lokelma to 10 gm qd; track UOP/resnl func; avoid Ntoxins; low K diet and daily lokelma (2) Acute hyperkalemia: Status: Acute Time Spent With Patient Time: Total time spent is greater than 50% in coordination of care (as documented) at patient's floor/unit and/or counseling patient: Progress Note: Quality Stroke Does the patient have a stroke diagnosis?: No
--- NOTE | 2022-02-26 13:38 | MHC.CM.PN ---
DAUGHTER SPENCER VISITED PER CONVERSATION,REFERRALS PLACED TO [facility] MONDAY
[2022-02-26 15:08] VITALS: BP 182/79; PULSE 66; RESP 18; TEMP 36.6; O2SAT 100
[2022-02-26 15:15] LABS: Anion Gap 13 (12-20); Carbon Dioxide 21 mmol/L (22-29); Chloride 112 mmol/L (96-108); Potassium 5.4 mmol/L (3.3-5.1); Sodium 141 mmol/L (135-145)
[2022-02-26 16:14] LABS: Glucose, Whole Blood 140 mg/dL (60-115)
[2022-02-26 19:29] VITALS: BP 184/79; PULSE 70; RESP 18; TEMP 36.8; O2SAT 94
[2022-02-26 20:25] LABS: Glucose, Whole Blood 120 mg/dL (60-115)
[2022-02-26] MEDS: traZODone HCL 50 MG TABLET PO (21:36)
[2022-02-26] MEDS: Atorvastatin Calcium 80 MG TABLET PO (21:37)
[2022-02-26] MEDS: Aspirin Enteric Coated 81 MG TABLET.DR PO (21:37)
[2022-02-27] VITALS (7 sets, daily range): BP systolic 124–170; BP diastolic 54–97; PULSE 62–71; RESP 17–18; TEMP 36.1–37.2; O2SAT 91–98
[2022-02-27] MEDS: Heparin Sodium,Porcine 5,000 UNIT/ML VIAL 5000 UNIT SUBCUT ×2 (06:14→17:08)
[2022-02-27] MEDS: Oseltamivir Phosphate 30 MG CAPSULE PO ×2 (06:14→17:07)
[2022-02-27 07:58] LABS: Glucose, Whole Blood 88 mg/dL (60-115)
[2022-02-27] MEDS: Sucralfate 1 GM TABLET PO ×4 (08:31→20:50)
[2022-02-27] MEDS: amLODIPine Besylate 5 MG TABLET PO (08:31)
[2022-02-27] MEDS: Sodium Bicarbonate 650 MG TABLET PO ×3 (08:31→20:50)
[2022-02-27] MEDS: Calcium + Vitamin D 250 MG TABLET 500 MG PO ×2 (08:31→20:50)
[2022-02-27] MEDS: Magnesium Oxide 400 MG TABLET PO ×2 (08:32→20:50)
[2022-02-27] MEDS: Clopidogrel Bisulfate 75 MG TABLET PO (08:32)
[2022-02-27] MEDS: cefTRIAXone sodium 1 GM in 0.9 % Sodium Chloride 50 ML IV (08:32)
[2022-02-27] MEDS: Sertraline HCL 50 MG TABLET PO (08:32)
[2022-02-27] MEDS: Gabapentin 100 MG CAPSULE PO ×2 (08:32→20:50)
[2022-02-27] MEDS: Sodium Zirconium Cyclosilicate 10 GM POWD.PACK PO (08:32)
[2022-02-27] MEDS: Insulin Glargine,Hum.rec.anlog 100 UNIT/ML 10 ML VIAL 25 UNIT SUBCUT (08:32)
[2022-02-27] MEDS: hydrALAZINE HCl 10 MG TABLET PO ×2 (08:32→20:50)
[2022-02-27] MEDS: carvediloL 6.25 MG TABLET PO ×2 (08:32→20:50)
[2022-02-27] MEDS: 0.9 % Sodium Chloride Flush 3 ML SYRINGE IVFLUSH ×3 (08:34→20:51)
[2022-02-27 08:48] LABS: Anion Gap 11 (12-20); Blood Urea Nitrogen 25 mg/dL (9-16); Calcium 8.1 mg/dL (8.4-10.2); Carbon Dioxide 23 mmol/L (22-29); Chloride 111 mmol/L (96-108); Creatinine Clr Calc Pharmacy 27.1; Estimated Glomerular Filt Rate 24; Glucose Random 102 mg/dL (60-115); Potassium 4.4 mmol/L (3.3-5.1); Sodium 141 mmol/L (135-145)
--- NOTE | 2022-02-27 10:10 | P.PNIM_ITS ---
Subjective Subjective Date of Service: 02/27/22 Interval History: f/u altered mental status, GIL, hyperkalemia, UTI. Interval history: no new issue, K is better. She wants to go home. Review of Systems Gen: no fever Resp: no sob, no cough CV: no chest, no AWAD, no leg edema GI: No n/v, no abd pain Neuro: No confusion Physical Exam Vital Signs: Vital Signs: Last Vital Signs Temp 97.5 F 02/27/22 07:26 Pulse 71 02/27/22 07:26 Resp 18 02/27/22 07:26 BP 157/71 H 02/27/22 07:26 Pulse Ox 98 02/27/22 07:26 BMI result Body Mass Index 32.0 Const: Other: General: AO X 2, no acute distress Resp: CTA bilateral CVS: S1,S2,RRR GI: +BS, NT, no distention Skin: No rash Neuro: motor grossly intact Psych: appropriate affect Objective Data Active Medications Acetaminophen (Acetaminophen 325 Mg Tablet) 650 mg PO Q6H PRN PRN Reason: Pain, Mild (Pain Scale 1-3) Amlodipine Besylate (Amlodipine Besylate 5 Mg Tablet) 5 mg PO DAILY [facility]; Protocol Last Admin: 02/27/22 08:31 Dose: 5 mg Documented by: BOBO Aspirin (Aspirin Enteric Coated 81 Mg Tablet.) 81 mg PO BEDTIME [facility] Last Admin: 02/26/22 21:37 Dose: 81 mg Documented by: KJ Atorvastatin Calcium (Atorvastatin Calcium 80 Mg Tablet) 80 mg PO BEDTIME [facility] Last Admin: 02/26/22 21:37 Dose: 80 mg Documented by: KJ Calcium Carbonate/Cholecalciferol (Calcium + Vitamin D 250 Mg Tablet) 500 mg PO BID [facility] Last Admin: 02/27/22 08:31 Dose: 500 mg Documented by: BOBO Carvedilol (Carvedilol 6.25 Mg Tablet) 6.25 mg PO BID [facility]; Protocol Last Admin: 02/27/22 08:32 Dose: 6.25 mg Documented by: BOBO Clopidogrel Bisulfate (Clopidogrel Bisulfate 75 Mg Tablet) 75 mg PO DAILY [facility] Last Admin: 02/27/22 08:32 Dose: 75 mg Documented by: BOBO Gabapentin (Gabapentin 100 Mg Capsule) 100 mg PO BID [facility] Last Admin: 02/27/22 08:32 Dose: 100 mg Documented by: BOBO Heparin Sodium (Porcine) (Heparin Sodium,Porcine 5,000 Unit/Ml Vial) 5,000 unit SUBCUT Q12H [facility] Last Admin: 02/27/22 06:14 Dose: 5,000 unit Documented by: KJ Hydralazine HCl (Hydralazine Hcl 10 Mg Tablet) 10 mg PO BID [facility]; Protocol Last Admin: 02/27/22 08:32 Dose: 10 mg Documented by: BOBO Ceftriaxone Sodium 1 gm/ (Sodium Chloride) 50 mls @ 100 mls/hr IV Q12H [facility] Last Infusion: 02/27/22 09:26 Dose: 0 mls/hr Documented by: BOBO Insulin Glargine (Insulin Glargine,Hum.Rec.Anlog 100 Unit/Ml 10 Ml Vial) 25 unit SUBCUT DAILY [facility] Last Admin: 02/27/22 08:32 Dose: 25 unit Documented by: BOBO Insulin Human Lispro (Insulin Lispro 100 Unit/Ml 3 Ml Vial) 0 unit SUBCUT QIDACHS [facility]; Protocol Last Admin: 02/27/22 08:21 Dose: Not Given Documented by: BOBO Non-Admin Reason: No Insulin Coverage Magnesium Oxide (Magnesium Oxide 400 Mg Tablet) 400 mg PO BID [facility] Last Admin: 02/27/22 08:32 Dose: 400 mg Documented by: BOBO Oseltamivir Phosphate (Oseltamivir Phosphate 30 Mg Capsule) 30 mg PO Q12H [facility] Last Admin: 02/27/22 06:14 Dose: 30 mg Documented by: KJ Pharmacy Consult (Consult Rx Perform Med Rec) 1 each MISCELLANE ONCE PRN PRN Reason: Consult order Sertraline HCl (Sertraline Hcl 50 Mg Tablet) 50 mg PO DAILY [facility] Last Admin: 02/27/22 08:32 Dose: 50 mg Documented by: BOBO Sodium Bicarbonate (Sodium Bicarbonate 650 Mg Tablet) 650 mg PO TID [facility] Last Admin: 02/27/22 08:31 Dose: 650 mg Documented by: BOBO Sodium Chloride (0.9 % Sodium Chloride Flush 3 Ml Syringe) 3 ml IVFLUSH QSHIFT [facility] Last Admin: 02/27/22 08:34 Dose: 3 ml Documented by: BOBO Sodium Zirconium Cyclosilicate (Sodium Zirconium Cyclosilicate 10 Gm Powd.Pack) 10 gm PO DAILY [facility] Last Admin: 02/27/22 08:32 Dose: 10 gm Documented by: BOBO Sucralfate (Sucralfate 1 Gm Tablet) 1 gm PO QIDACHS [facility] Last Admin: 02/27/22 08:31 Dose: 1 gm Documented by: BOBO Trazodone HCl (Trazodone Hcl 50 Mg Tablet) 50 mg PO BEDTIME [facility] Last Admin: 02/26/22 21:36 Dose: 50 mg Documented by: ODRISM Labs CBC & Chem 7: 02/22/22 11:18 02/27/22 08:14 Labs: Laboratory Results - last 24 hr 02/26/22 02/26/22 02/26/22 11:39 14:51 16:10 Anion Gap 13 Estim Creat Clear Calc Estimated GFR POC Glucose 145 H 140 H Random Glucose Calcium 02/26/22 02/27/22 02/27/22 20:18 07:29 08:14 Anion Gap 11 L Estim Creat Clear Calc 27.1 Estimated GFR 24 POC Glucose 120 H 88 Random Glucose 102 Calcium 8.1 L Microbiology Microbiology Results: Microbiology 02/24/22 17:23 Urine Culture - Final Urine Catheterized - Straight Catheter No growth. Assessment and Plan (1) Acute hyperkalemia: Status: Acute (2) AMS (altered mental status): Status: Acute (3) GIL (acute kidney injury): Status: Acute Plan Admitted with toxic metabolic encephalopathy, GIL on CKD, UTI # toxic metabolic encephalopathy from UTI, acute renal insufficiency, hyperkalemia and flu. She is back to her baseline mental status after treatment of underlying issues #UTI- negative culture, treated with Ceftriaxone x 5 days #Influeza--treated with renal dose of Tamiflu # Chronic hyperKalemia--Treated with Lokelma, Kayexalate.. Potassium is persistently high and will be on maintainace Lokelma. No PINO/ARB, aldactone or #GIL on CKD3, Pre renal? due to diarrhea, treated with IVF and GIL is resolved # h/o dysphagia--recent EGD showed gastritis and esophagitis and supposed PPI and Sucralfate # HTN # NICM/chronic HFpEF - continue amlodipine, carvedilol,? hydralazine. Lasix was on hold due to GIL bur resuming upon discharge # HLD # prior CVA - continue ASA + clopidogrel - continue atorvastatin, carvedilol # DM2 - basal/bolus insulin--Continue Insulin # mood disorder - continue sertraline + trazodone # neuropathy - continue gabapentin Inpatient due to hyperkalemia requiring treatment and close monitoring of potassium level and frequent not able to do at home possibly home if repeat K is better after Kayexalate Check with family if they want to take him home rather than rehab Quality Stroke Does the patient have a stroke diagnosis?: No VTE Prior VTE?: No VTE Risk Level:: Medical - moderate - high VTE Device Contraindication: Treatment Not Indicated VTE Drug Contraindication: N/A - Med Ordered
[2022-02-27 12:01] LABS: Glucose, Whole Blood 102 mg/dL (60-115)
--- NOTE | 2022-02-27 15:30 | PM.PNNEP ---
Subjective Subjective Date of Service: 02/27/22 Interval history: Seen and examined, events noted Physical Exam Vital Signs: Vital Signs: Last Vital Signs Temp 97.6 F 02/27/22 11:33 Pulse 62 02/27/22 11:33 Resp 18 02/27/22 11:33 BP 170/72 H 02/27/22 11:33 Pulse Ox 91 L 02/27/22 11:33 BMI result Body Mass Index 32.0 Const: General: cooperative, comfortable and no acute distress HEENT: Head: Yes normocephalic Neck: Neck: Yes no JVD Resp: Auscultation: clear to auscultation bilaterally Cardio: Jugular venous distension: no JVD Rate: regular rate Rhythm: regular rhythm Heart sounds: S1 normal heart sound present and S2 normal heart sound present GI: Auscultation: normal bowel sounds Neuro: General: moves all extremities Extrem: General: Yes no joint enlargement and Yes no clubbing, cyanosis or edema Objective Data Labs CBC & Chem 7: 02/22/22 11:18 02/27/22 08:14 Labs: Laboratory Results - last 24 hr 02/26/22 02/26/22 02/27/22 16:10 20:18 07:29 Sodium Potassium Chloride Carbon Dioxide Anion Gap BUN Creatinine Estim Creat Clear Calc Estimated GFR POC Glucose 140 H 120 H 88 Random Glucose Calcium 02/27/22 02/27/22 08:14 11:33 Sodium 141 Potassium 4.4 Chloride 111 H Carbon Dioxide 23 Anion Gap 11 L BUN 25 H Creatinine 2.09 H Estim Creat Clear Calc 27.1 Estimated GFR 24 POC Glucose 102 Random Glucose 102 Calcium 8.1 L Microbiology Microbiology Results: Microbiology 02/24/22 17:23 Urine Catheterized - Straight Catheter Urine Culture - Final No growth. Procedures Date of Service Date of Service: 02/27/22 Assessment & Plan Assessment and plan (1) CKD (chronic kidney disease) stage 4, GFR 15-29 ml/min: Status: Acute Assessment and Plan: 1. GIL: resolved 2. CKD 4: BSL SCr 2.5-2.8 and now Scr 2.0 below BSL 3. NAGMA 4. HyperK: d/t CKD and low K 5. MBD of CKD REC: cont NaHCO3 repalcement; increase lokelma to 10 gm qd; track UOP/resnl func; avoid Ntoxins; low K diet and daily lokelma (2) Acute hyperkalemia: Status: Acute Time Spent With Patient Time: Total time spent is greater than 50% in coordination of care (as documented) at patient's floor/unit and/or counseling patient: Progress Note: Quality Stroke Does the patient have a stroke diagnosis?: No
[2022-02-27 16:52] LABS: Glucose, Whole Blood 108 mg/dL (60-115)
[2022-02-27 19:58] LABS: Glucose, Whole Blood 113 mg/dL (60-115)
[2022-02-27] MEDS: Atorvastatin Calcium 80 MG TABLET PO (20:50)
[2022-02-27] MEDS: Aspirin Enteric Coated 81 MG TABLET.DR PO (20:50)
[2022-02-27] MEDS: traZODone HCL 50 MG TABLET PO (20:50)
[2022-02-28 03:28] VITALS: BP 138/43; PULSE 74; RESP 18; TEMP 36.2; O2SAT 93
[2022-02-28] MEDS: Heparin Sodium,Porcine 5,000 UNIT/ML VIAL 5000 UNIT SUBCUT ×2 (05:18→17:04)
[2022-02-28 07:27] VITALS: BP 185/83; PULSE 72; RESP 18; TEMP 36.6; O2SAT 95
[2022-02-28 07:47] LABS: Glucose, Whole Blood 83 mg/dL (60-115)
[2022-02-28] MEDS: Sucralfate 1 GM TABLET PO ×4 (07:58→20:27)
[2022-02-28] MEDS: 0.9 % Sodium Chloride Flush 3 ML SYRINGE IVFLUSH ×3 (07:59→20:30)
[2022-02-28] MEDS: Insulin Glargine,Hum.rec.anlog 100 UNIT/ML 10 ML VIAL 25 UNIT SUBCUT (08:40)
[2022-02-28] MEDS: Gabapentin 100 MG CAPSULE PO ×2 (08:41→20:28)
[2022-02-28] MEDS: Clopidogrel Bisulfate 75 MG TABLET PO (08:41)
[2022-02-28] MEDS: Magnesium Oxide 400 MG TABLET PO ×2 (08:41→20:29)
[2022-02-28] MEDS: Calcium + Vitamin D 250 MG TABLET 500 MG PO ×2 (08:41→20:28)
[2022-02-28] MEDS: Sertraline HCL 50 MG TABLET PO (08:41)
[2022-02-28] MEDS: Sodium Bicarbonate 650 MG TABLET PO ×3 (08:41→20:27)
[2022-02-28] MEDS: amLODIPine Besylate 5 MG TABLET PO ×2 (08:41→10:32)
[2022-02-28] MEDS: carvediloL 6.25 MG TABLET PO ×2 (08:41→20:28)
[2022-02-28] MEDS: hydrALAZINE HCl 10 MG TABLET PO ×2 (08:42→20:28)
[2022-02-28] MEDS: Sodium Zirconium Cyclosilicate 10 GM POWD.PACK PO (08:48)
--- NOTE | 2022-02-28 09:10 | P.PNIM_ITS ---
Subjective Subjective Date of Service: 02/28/22 Interval History: f/u altered mental status, GIL, hyperkalemia, UTI. Interval history: no new issue, K stable, still awaiting rehab bed Review of Systems Gen: no fever Resp: no sob, no cough CV: no chest, no AWAD, no leg edema GI: No n/v, no abd pain Neuro: No confusion Physical Exam Vital Signs: Vital Signs: Last Vital Signs Temp 98 F 02/28/22 07:27 Pulse 72 02/28/22 07:27 Resp 18 02/28/22 07:27 BP 185/83 H 02/28/22 07:27 Pulse Ox 95 02/28/22 07:27 BMI result Body Mass Index 32.0 Const: Other: General: AO X 2, no acute distress Resp: CTA bilateral CVS: S1,S2,RRR GI: +BS, NT, no distention Skin: No rash Neuro: motor grossly intact Psych: appropriate affect Objective Data Active Medications Acetaminophen (Acetaminophen 325 Mg Tablet) 650 mg PO Q6H PRN PRN Reason: Pain, Mild (Pain Scale 1-3) Amlodipine Besylate (Amlodipine Besylate 5 Mg Tablet) 5 mg PO DAILY REPLACED BY [facility]; Protocol Last Admin: 02/28/22 08:41 Dose: 5 mg Documented by: ORI Aspirin (Aspirin Enteric Coated 81 Mg Tablet.) 81 mg PO BEDTIME REPLACED BY [facility] Last Admin: 02/27/22 20:50 Dose: 81 mg Documented by: MADALYN Atorvastatin Calcium (Atorvastatin Calcium 80 Mg Tablet) 80 mg PO BEDTIME REPLACED BY [facility] Last Admin: 02/27/22 20:50 Dose: 80 mg Documented by: MADALYN Calcium Carbonate/Cholecalciferol (Calcium + Vitamin D 250 Mg Tablet) 500 mg PO BID REPLACED BY [facility] Last Admin: 02/28/22 08:41 Dose: 500 mg Documented by: ORI Carvedilol (Carvedilol 6.25 Mg Tablet) 6.25 mg PO BID REPLACED BY [facility]; Protocol Last Admin: 02/28/22 08:41 Dose: 6.25 mg Documented by: ORI Clopidogrel Bisulfate (Clopidogrel Bisulfate 75 Mg Tablet) 75 mg PO DAILY REPLACED BY [facility] Last Admin: 02/28/22 08:41 Dose: 75 mg Documented by: ORI Gabapentin (Gabapentin 100 Mg Capsule) 100 mg PO BID REPLACED BY [facility] Last Admin: 02/28/22 08:41 Dose: 100 mg Documented by: ORI Heparin Sodium (Porcine) (Heparin Sodium,Porcine 5,000 Unit/Ml Vial) 5,000 unit SUBCUT Q12H REPLACED BY [facility] Last Admin: 02/28/22 05:18 Dose: 5,000 unit Documented by: MADALYN Hydralazine HCl (Hydralazine Hcl 10 Mg Tablet) 10 mg PO BID REPLACED BY [facility]; Protocol Last Admin: 02/28/22 08:42 Dose: 10 mg Documented by: ORI Insulin Glargine (Insulin Glargine,Hum.Rec.Anlog 100 Unit/Ml 10 Ml Vial) 25 unit SUBCUT DAILY REPLACED BY [facility] Last Admin: 02/28/22 08:40 Dose: 25 unit Documented by: ORI Insulin Human Lispro (Insulin Lispro 100 Unit/Ml 3 Ml Vial) 0 unit SUBCUT QIDACHS REPLACED BY [facility]; Protocol Last Admin: 02/28/22 08:19 Dose: Not Given Documented by: ORI Non-Admin Reason: No Insulin Coverage Magnesium Oxide (Magnesium Oxide 400 Mg Tablet) 400 mg PO BID REPLACED BY [facility] Last Admin: 02/28/22 08:41 Dose: 400 mg Documented by: ORI Pharmacy Consult (Consult Rx Perform Med Rec) 1 each MISCELLANE ONCE PRN PRN Reason: Consult order Sertraline HCl (Sertraline Hcl 50 Mg Tablet) 50 mg PO DAILY REPLACED BY [facility] Last Admin: 02/28/22 08:41 Dose: 50 mg Documented by: ORI Sodium Bicarbonate (Sodium Bicarbonate 650 Mg Tablet) 650 mg PO TID REPLACED BY [facility] Last Admin: 02/28/22 08:41 Dose: 650 mg Documented by: ORI Sodium Chloride (0.9 % Sodium Chloride Flush 3 Ml Syringe) 3 ml IVFLUSH QSHIFT REPLACED BY [facility] Last Admin: 02/28/22 07:59 Dose: 3 ml Documented by: MONROE Sodium Zirconium Cyclosilicate (Sodium Zirconium Cyclosilicate 10 Gm Powd.Pack) 10 gm PO DAILY REPLACED BY [facility] Last Admin: 02/28/22 08:48 Dose: 10 gm Documented by: ORI Sucralfate (Sucralfate 1 Gm Tablet) 1 gm PO QIDACHS REPLACED BY [facility] Last Admin: 02/28/22 07:58 Dose: 1 gm Documented by: MONROE Trazodone HCl (Trazodone Hcl 50 Mg Tablet) 50 mg PO BEDTIME [facility] Last Admin: 02/27/22 20:50 Dose: 50 mg Documented by: MADALYN Labs CBC & Chem 7: 02/22/22 11:18 02/27/22 08:14 Labs: Laboratory Results - last 24 hr 02/27/22 02/27/22 02/27/22 11:33 16:46 19:54 POC Glucose 102 108 113 02/28/22 07:42 POC Glucose 83 Microbiology Microbiology Results: Microbiology 02/24/22 17:23 Urine Culture - Final Urine Catheterized - Straight Catheter No growth. Assessment and Plan (1) Acute hyperkalemia: Status: Acute (2) AMS (altered mental status): Status: Acute (3) GIL (acute kidney injury): Status: Acute Plan Admitted with toxic metabolic encephalopathy, GIL on CKD, UTI # toxic metabolic encephalopathy from UTI, acute renal insufficiency, hyperkalemia and flu. She is back to her baseline mental status after treatment of underlying issues #UTI- completed Abx course #Influeza--completed tamiflu # Chronic hyperKalemia--Treated with Lokelma, Kayexalate--.Standing Lokelma 10 daily.. Potassium is persistently high and will be on maintainace Lokelma. No PINO/ARB, aldactone or #GIL on CKD3, Pre renal? due to diarrhea, treated with IVF and GIL is resolved # h/o dysphagia--recent EGD showed gastritis and esophagitis and supposed PPI and Sucralfate # HTN # NICM/chronic HFpEF - continue amlodipine, carvedilol,? hydralazine. Lasix was on hold due to GIL bur resuming upon discharge # HLD # prior CVA - continue ASA + clopidogrel - continue atorvastatin, carvedilol # DM2 - basal/bolus insulin--Continue Insulin # mood disorder - continue sertraline + trazodone # neuropathy - continue gabapentin Inpatient due to hyperkalemia requiring treatment and close monitoring of potassium level and frequent not able to do at home, loar need rehab and bed not available yet possibly home if repeat K is better after Kayexalate Check with family if they want to take him home rather than rehab Quality Stroke Does the patient have a stroke diagnosis?: No VTE Prior VTE?: No VTE Risk Level:: Medical - moderate - high VTE Device Contraindication: Treatment Not Indicated VTE Drug Contraindication: N/A - Med Ordered
[2022-02-28 11:10] LABS: Glucose, Whole Blood 87 mg/dL (60-115)
[2022-02-28 11:19] VITALS: BP 141/53; PULSE 63; RESP 15; TEMP 36.1; O2SAT 97
[2022-02-28 15:53] VITALS: BP 177/70; PULSE 68; RESP 18; TEMP 36.1; O2SAT 97
[2022-02-28 16:30] LABS: Glucose, Whole Blood 156 mg/dL (60-115)
[2022-02-28] MEDS: Insulin Lispro 100 UNIT/ML 3 ML VIAL SUBCUT ×2 (17:04→20:29)
--- NOTE | 2022-02-28 17:47 | PM.PNNEP ---
Subjective Subjective Date of Service: 02/28/22 Interval history: Seen and examined, event noted Physical Exam Vital Signs: Vital Signs: Last Vital Signs Temp 96.9 F 02/28/22 15:53 Pulse 68 02/28/22 15:53 Resp 18 02/28/22 15:53 BP 177/70 H 02/28/22 15:53 Pulse Ox 97 02/28/22 15:53 BMI result Body Mass Index 32.0 Const: General: cooperative, comfortable and no acute distress HEENT: Head: Yes normocephalic Neck: Neck: Yes no JVD Resp: Auscultation: clear to auscultation bilaterally Cardio: Jugular venous distension: no JVD Rate: regular rate Rhythm: regular rhythm Heart sounds: S1 normal heart sound present and S2 normal heart sound present GI: Auscultation: normal bowel sounds Neuro: General: moves all extremities Extrem: General: Yes no joint enlargement and Yes no clubbing, cyanosis or edema Objective Data Labs CBC & Chem 7: 02/22/22 11:18 02/27/22 08:14 Labs: Laboratory Results - last 24 hr 02/27/22 02/28/22 02/28/22 19:54 07:42 11:06 POC Glucose 113 83 87 02/28/22 15:57 POC Glucose 156 H Microbiology Microbiology Results: Microbiology 02/24/22 17:23 Urine Catheterized - Straight Catheter Urine Culture - Final No growth. Procedures Date of Service Date of Service: 02/28/22 Assessment & Plan Assessment and plan (1) CKD (chronic kidney disease) stage 4, GFR 15-29 ml/min: Status: Acute Assessment and Plan: 1. GIL: resolved 2. CKD 4: BSL SCr 2.5-2.8 and now Scr 2.0 below BSL 3. NAGMA 4. HyperK: d/t CKD and low K 5. MBD of CKD REC: cont NaHCO3 repalcement if remains < 24; cont lokelma to 10 gm qd; track UOP/resnl func; avoid Ntoxins; low K diet and daily lokelma (2) Acute hyperkalemia: Status: Acute Time Spent With Patient Time: Total time spent is greater than 50% in coordination of care (as documented) at patient's floor/unit and/or counseling patient: Progress Note: Quality Stroke Does the patient have a stroke diagnosis?: No
[2022-02-28 19:27] VITALS: BP 180/74; PULSE 70; RESP 18; TEMP 36.7; O2SAT 93
[2022-02-28 20:09] LABS: Glucose, Whole Blood 181 mg/dL (60-115)
[2022-02-28] MEDS: Aspirin Enteric Coated 81 MG TABLET.DR PO (20:27)
[2022-02-28] MEDS: Atorvastatin Calcium 80 MG TABLET PO (20:28)
[2022-02-28] MEDS: traZODone HCL 50 MG TABLET PO (20:28)
[2022-02-28 23:37] VITALS: BP 141/61; PULSE 72; RESP 18; TEMP 36.1; O2SAT 93
[2022-03-01] MEDS: Heparin Sodium,Porcine 5,000 UNIT/ML VIAL 5000 UNIT SUBCUT ×2 (05:28→16:35)
[2022-03-01 06:21] LABS: Creatinine Clr Calc Pharmacy 26.4; Estimated Glomerular Filt Rate 23
[2022-03-01 06:22] LABS: Anion Gap 14 (12-20); Blood Urea Nitrogen 25 mg/dL (9-16); Calcium 8.2 mg/dL (8.4-10.2); Carbon Dioxide 23 mmol/L (22-29); Chloride 108 mmol/L (96-108); Creatinine Clr Calc Pharmacy 25.9; Estimated Glomerular Filt Rate 22; Glucose Random 203 mg/dL (60-115); Potassium 4.5 mmol/L (3.3-5.1); Sodium 140 mmol/L (135-145)
[2022-03-01 07:41] VITALS: BP 174/79; PULSE 71; RESP 17; TEMP 36.1; O2SAT 94
--- NOTE | 2022-03-01 08:30 | HO.PM.IMPN ---
Subjective Subjective Date of Service: 03/01/22 Interval History: f/u altered mental status, GIL, hyperkalemia, UTI. Interval history: no new issue, K stable, still awaiting rehab bed, potassium is normal Review of Systems Gen: no fever Resp: no sob, no cough CV: no chest, no AWAD, no leg edema GI: No n/v, no abd pain Neuro: No confusion Physical Exam Vital Signs: Vital Signs: Last Vital Signs Temp 96.9 F 03/01/22 07:41 Pulse 71 03/01/22 07:41 Resp 17 03/01/22 07:41 BP 174/79 H 03/01/22 07:41 Pulse Ox 94 03/01/22 07:41 BMI result Body Mass Index 32.0 Const: Other: General: AO X 2, no acute distress Resp: CTA bilateral CVS: S1,S2,RRR GI: +BS, NT, no distention Skin: No rash Neuro: motor grossly intact Psych: appropriate affect Objective Data Active Medications Acetaminophen (Acetaminophen 325 Mg Tablet) 650 mg PO Q6H PRN PRN Reason: Pain, Mild (Pain Scale 1-3) Amlodipine Besylate (Amlodipine Besylate 10 Mg Tablet) 10 mg PO DAILY [facility]; Protocol Aspirin (Aspirin Enteric Coated 81 Mg Tablet.) 81 mg PO BEDTIME [facility] Last Admin: 02/28/22 20:27 Dose: 81 mg Documented by: MADALYN Atorvastatin Calcium (Atorvastatin Calcium 80 Mg Tablet) 80 mg PO BEDTIME [facility] Last Admin: 02/28/22 20:28 Dose: 80 mg Documented by: MADALYN Calcium Carbonate/Cholecalciferol (Calcium + Vitamin D 250 Mg Tablet) 500 mg PO BID [facility] Last Admin: 02/28/22 20:28 Dose: 500 mg Documented by: MADALYN Carvedilol (Carvedilol 6.25 Mg Tablet) 6.25 mg PO BID [facility]; Protocol Last Admin: 02/28/22 20:28 Dose: 6.25 mg Documented by: MADALYN Clopidogrel Bisulfate (Clopidogrel Bisulfate 75 Mg Tablet) 75 mg PO DAILY [facility] Last Admin: 02/28/22 08:41 Dose: 75 mg Documented by: ORI Gabapentin (Gabapentin 100 Mg Capsule) 100 mg PO BID [facility] Last Admin: 02/28/22 20:28 Dose: 100 mg Documented by: MADALYN Heparin Sodium (Porcine) (Heparin Sodium,Porcine 5,000 Unit/Ml Vial) 5,000 unit SUBCUT Q12H [facility] Last Admin: 03/01/22 05:28 Dose: 5,000 unit Documented by: MADALYN Hydralazine HCl (Hydralazine Hcl 10 Mg Tablet) 10 mg PO BID [facility]; Protocol Last Admin: 02/28/22 20:28 Dose: 10 mg Documented by: MADALYN Insulin Glargine (Insulin Glargine,Hum.Rec.Anlog 100 Unit/Ml 10 Ml Vial) 25 unit SUBCUT DAILY [facility] Last Admin: 02/28/22 08:40 Dose: 25 unit Documented by: ORI Insulin Human Lispro (Insulin Lispro 100 Unit/Ml 3 Ml Vial) 0 unit SUBCUT QIDACHS [facility]; Protocol Last Admin: 02/28/22 20:29 Dose: 2 unit Documented by: MADALYN Magnesium Oxide (Magnesium Oxide 400 Mg Tablet) 400 mg PO BID [facility] Last Admin: 02/28/22 20:29 Dose: 400 mg Documented by: MADALYN Pharmacy Consult (Consult Rx Perform Med Rec) 1 each MISCELLANE ONCE PRN PRN Reason: Consult order Sertraline HCl (Sertraline Hcl 50 Mg Tablet) 50 mg PO DAILY [facility] Last Admin: 02/28/22 08:41 Dose: 50 mg Documented by: ORI Sodium Bicarbonate (Sodium Bicarbonate 650 Mg Tablet) 650 mg PO TID [facility] Last Admin: 02/28/22 20:27 Dose: 650 mg Documented by: MADALYN Sodium Chloride (0.9 % Sodium Chloride Flush 3 Ml Syringe) 3 ml IVFLUSH QSHIFT [facility] Last Admin: 02/28/22 20:30 Dose: 3 ml Documented by: MADALYN Sodium Zirconium Cyclosilicate (Sodium Zirconium Cyclosilicate 10 Gm Powd.Pack) 10 gm PO DAILY [facility] Last Admin: 02/28/22 08:48 Dose: 10 gm Documented by: ORI Sucralfate (Sucralfate 1 Gm Tablet) 1 gm PO QIDACHS [facility] Last Admin: 02/28/22 20:27 Dose: 1 gm Documented by: MADALYN Trazodone HCl (Trazodone Hcl 50 Mg Tablet) 50 mg PO BEDTIME [facility] Last Admin: 02/28/22 20:28 Dose: 50 mg Documented by: MADALYN Labs CBC & Chem 7: 02/22/22 11:18 03/01/22 05:40 Labs: Laboratory Results - last 24 hr 02/28/22 02/28/22 02/28/22 11:06 15:57 19:35 Anion Gap Estim Creat Clear Calc Estimated GFR POC Glucose 87 156 H 181 H Random Glucose Calcium 03/01/22 03/01/22 05:40 05:40 Anion Gap 14 Estim Creat Clear Calc 25.9 26.4 Estimated GFR 22 23 POC Glucose Random Glucose 203 H Calcium 8.2 L Assessment and Plan (1) Acute hyperkalemia: Status: Acute (2) AMS (altered mental status): Status: Acute (3) GIL (acute kidney injury): Status: Acute Plan Admitted with toxic metabolic encephalopathy, GIL on CKD, UTI # toxic metabolic encephalopathy from UTI, acute renal insufficiency, hyperkalemia and flu. No longer confused, at baseline #UTI- completed Abx course #Influeza--completed tamiflu # Chronic hyperKalemia--Treated with Lokelma, Kayexalate--.Standing Lokelma 10 daily.. Potassium is finally normal #GIL on CKD3, Pre renal? due to diarrhea, treated with IVF and GIL is resolved # h/o dysphagia--recent EGD showed gastritis and esophagitis and supposed PPI and Sucralfate # HTN # NICM/chronic HFpEF - continue amlodipine, carvedilol,? hydralazine increase dose due persistent high BP. Lasix was on hold due to GIL bur resuming upon discharge # HLD # prior CVA - continue ASA + clopidogrel - continue atorvastatin, carvedilol # DM2 - basal/bolus insulin--Continue Insulin # mood disorder - continue sertraline + trazodone # neuropathy - continue gabapentin Inpatient due to hyperkalemia requiring treatment and close monitoring of potassium level and frequent not able to do at home, lora need rehab and bed not available yet Family stating not able to care for her at home and therefore needs rehab to get better Check with family if they want to take him home rather than rehab Quality Stroke Does the patient have a stroke diagnosis?: No VTE Prior VTE?: No VTE Risk Level:: Medical - moderate - high VTE Device Contraindication: Treatment Not Indicated VTE Drug Contraindication: N/A - Med Ordered
[2022-03-01] MEDS: Magnesium Oxide 400 MG TABLET PO ×2 (08:35→22:15)
[2022-03-01] MEDS: Sucralfate 1 GM TABLET PO ×4 (08:35→22:15)
[2022-03-01] MEDS: Insulin Glargine,Hum.rec.anlog 100 UNIT/ML 10 ML VIAL 25 UNIT SUBCUT (08:35)
[2022-03-01] MEDS: 0.9 % Sodium Chloride Flush 3 ML SYRINGE IVFLUSH ×3 (08:35→22:16)
[2022-03-01] MEDS: Insulin Lispro 100 UNIT/ML 3 ML VIAL SUBCUT ×2 (08:35→12:23)
[2022-03-01] MEDS: carvediloL 6.25 MG TABLET PO ×2 (08:36→22:15)
[2022-03-01] MEDS: Clopidogrel Bisulfate 75 MG TABLET PO (08:36)
[2022-03-01] MEDS: amLODIPine Besylate 10 MG TABLET PO (08:36)
[2022-03-01] MEDS: Gabapentin 100 MG CAPSULE PO ×2 (08:36→22:15)
[2022-03-01] MEDS: Sertraline HCL 50 MG TABLET PO (08:36)
[2022-03-01] MEDS: Sodium Bicarbonate 650 MG TABLET PO ×3 (08:37→22:15)
[2022-03-01] MEDS: Sodium Zirconium Cyclosilicate 10 GM POWD.PACK PO (08:37)
[2022-03-01] MEDS: Calcium + Vitamin D 250 MG TABLET 500 MG PO ×2 (08:38→22:14)
[2022-03-01] MEDS: hydrALAZINE HCl 25 MG TABLET PO ×2 (08:39→22:15)
--- NOTE | 2022-03-01 10:12 | MHC.CDI.CONC ---
CDI Concurrent Query Documentation Clarification: PHYSICIAN'S DOCUMENTATION REQUEST Date of Query: 03/01/22 1013 Patient Name: Debbie Guerra Admit Date: 02/22/22 Dear Doctor, A review of the medical record indicates additional documentation may be needed. Please review below and update the documentation accordingly. Clinical Indicators Risk Factors/Clinical Indicators/Treatments Nephrology note 02/27 & 02/28 - CKD 4 BSL SCr 2.5-2.8 now SCr 2.0 below BSL. Progress note 02/28 - GIL on CKD 3 Based on the above, could you clarify in the Progress Notes the appropriate diagnosis, if significant, that supports the above abnormalities and additional evaluation, monitoring, and/or treatment rendered: consistency and clarity of documentation: GIL on CKD Stage 3 GIL on CKD Stage 4 Other (please specify) Unable to determine Use of terms such as suspected, likely, concern for, or probable (associated with a specific diagnosis that is being evaluated, monitored, or treated as if it exists) are acceptable and can be coded in the inpatient setting, when documented at the time of discharge. Thank you, Kylie Alonso [facility], CDIS Extension: [phone] Please use your independent medical judgment in providing your response. THIS QUERY IS PART OF THE PERMANENT MEDICAL RECORD Provider Response: CKD Stage 4
[2022-03-01 11:16] VITALS: BP 158/69; PULSE 68; RESP 17; TEMP 36.3; O2SAT 93
[2022-03-01 11:35] LABS: Glucose, Whole Blood 162 mg/dL (60-115)
[2022-03-01 11:42] LABS: Glucose, Whole Blood 173 mg/dL (60-115)
--- NOTE | 2022-03-01 13:47 | MHC.CM.PN ---
nurse case planner note electroib ic medical record reviewed along with case disucssed with [facility] and staff nruse . patient per [facility] can be dischagred today to short term rehab original choices pending were [facility] and [facility] no bed availability, reached out to [facility] and [facility] no bed availability broad referrals sent out and pending response for str will need [facility] ins auth case planner to continue to follow
--- NOTE | 2022-03-01 14:03 | MHC.CLN ---
NUTRITION CONSULT FOR SKIN. АЛЕКСАНДР=13. DIET=DIABETIC 1800 KCAL, LOW POTASSIUM. INTAKE USUALLY GOOD WITH MOST MEALS GREATER THAN OR EQUAL TO 50%. REDNESS NOTED TO COCCYX. NO ADDITIONAL NUTRITION INTERVENTIONS AT THIS TIME.
[2022-03-01 16:00] VITALS: PULSE 70; RESP 16; TEMP 36.9; O2SAT 91
[2022-03-01 16:18] LABS: Glucose, Whole Blood 104 mg/dL (60-115)
[2022-03-01 19:06] VITALS: BP 176/73; PULSE 72; RESP 16; TEMP 37.1; O2SAT 94
[2022-03-01 20:54] LABS: Glucose, Whole Blood 85 mg/dL (60-115)
[2022-03-01] MEDS: Atorvastatin Calcium 80 MG TABLET PO (22:14)
[2022-03-01] MEDS: Aspirin Enteric Coated 81 MG TABLET.DR PO (22:14)
[2022-03-01] MEDS: traZODone HCL 50 MG TABLET PO (22:20)
[2022-03-01 23:34] VITALS: BP 134/55; PULSE 58; RESP 16; TEMP 36.2; O2SAT 98
[2022-03-02] VITALS (7 sets, daily range): BP systolic 117–157; BP diastolic 60–81; PULSE 65–70; RESP 16–23; TEMP 36.2–36.9; O2SAT 92–96
[2022-03-02] MEDS: Heparin Sodium,Porcine 5,000 UNIT/ML VIAL 5000 UNIT SUBCUT ×2 (06:01→16:59)
[2022-03-02 07:18] LABS: Glucose, Whole Blood 104 mg/dL (60-115)
--- NOTE | 2022-03-02 09:28 | P.PNIM_ITS ---
Subjective Subjective Date of Service: 03/02/22 Interval History: f/u altered mental status, GIL, hyperkalemia, UTI. Interval history: no new issue, K level has been normal Review of Systems Gen: no fever Resp: no sob, no cough CV: no chest, no AWAD, no leg edema GI: No n/v, no abd pain Neuro: No confusion Physical Exam Vital Signs: Vital Signs: Last Vital Signs Temp 97.8 F 03/02/22 07:48 Pulse 67 03/02/22 07:48 Resp 23 H 03/02/22 07:48 BP 117/72 03/02/22 07:48 Pulse Ox 93 03/02/22 07:48 BMI result Body Mass Index 32.0 Const: Other: General: AO X 2, no acute distress Resp: CTA bilateral CVS: S1,S2,RRR GI: +BS, NT, no distention Skin: No rash Neuro: motor grossly intact Psych: appropriate affect Objective Data Active Medications Acetaminophen (Acetaminophen 325 Mg Tablet) 650 mg PO Q6H PRN PRN Reason: Pain, Mild (Pain Scale 1-3) Amlodipine Besylate (Amlodipine Besylate 10 Mg Tablet) 10 mg PO DAILY [facility]; Protocol Last Admin: 03/01/22 08:36 Dose: 10 mg Documented by: ORI Aspirin (Aspirin Enteric Coated 81 Mg Tablet.) 81 mg PO BEDTIME [facility] Last Admin: 03/01/22 22:14 Dose: 81 mg Documented by: JACK Atorvastatin Calcium (Atorvastatin Calcium 80 Mg Tablet) 80 mg PO BEDTIME [facility] Last Admin: 03/01/22 22:14 Dose: 80 mg Documented by: JACK Calcium Carbonate/Cholecalciferol (Calcium + Vitamin D 250 Mg Tablet) 500 mg PO BID [facility] Last Admin: 03/01/22 22:14 Dose: 500 mg Documented by: JACK Carvedilol (Carvedilol 6.25 Mg Tablet) 6.25 mg PO BID [facility]; Protocol Last Admin: 03/01/22 22:15 Dose: 6.25 mg Documented by: JACK Clopidogrel Bisulfate (Clopidogrel Bisulfate 75 Mg Tablet) 75 mg PO DAILY [facility] Last Admin: 03/01/22 08:36 Dose: 75 mg Documented by: ORI Gabapentin (Gabapentin 100 Mg Capsule) 100 mg PO BID [facility] Last Admin: 03/01/22 22:15 Dose: 100 mg Documented by: JACK Heparin Sodium (Porcine) (Heparin Sodium,Porcine 5,000 Unit/Ml Vial) 5,000 unit SUBCUT Q12H [facility] Last Admin: 03/02/22 06:01 Dose: 5,000 unit Documented by: JACK Hydralazine HCl (Hydralazine Hcl 25 Mg Tablet) 25 mg PO BID [facility]; Protocol Last Admin: 03/01/22 22:15 Dose: 25 mg Documented by: JACK Insulin Glargine (Insulin Glargine,Hum.Rec.Anlog 100 Unit/Ml 10 Ml Vial) 25 unit SUBCUT DAILY [facility] Last Admin: 03/01/22 08:35 Dose: 25 unit Documented by: ORI Insulin Human Lispro (Insulin Lispro 100 Unit/Ml 3 Ml Vial) 0 unit SUBCUT QIDAS [facility]; Protocol Last Admin: 03/02/22 07:21 Dose: Not Given Documented by: AMINA Non-Admin Reason: No Insulin Coverage Magnesium Oxide (Magnesium Oxide 400 Mg Tablet) 400 mg PO BID [facility] Last Admin: 03/01/22 22:15 Dose: 400 mg Documented by: JACK Pharmacy Consult (Consult Rx Perform Med Rec) 1 each MISCELLANE ONCE PRN PRN Reason: Consult order Sertraline HCl (Sertraline Hcl 50 Mg Tablet) 50 mg PO DAILY [facility] Last Admin: 03/01/22 08:36 Dose: 50 mg Documented by: ORI Sodium Bicarbonate (Sodium Bicarbonate 650 Mg Tablet) 650 mg PO TID [facility] Last Admin: 03/01/22 22:15 Dose: 650 mg Documented by: JACK Sodium Chloride (0.9 % Sodium Chloride Flush 3 Ml Syringe) 3 ml IVFLUSH QSHIFT [facility] Last Admin: 03/01/22 22:16 Dose: 3 ml Documented by: JACK Sodium Zirconium Cyclosilicate (Sodium Zirconium Cyclosilicate 10 Gm Powd.Pack) 10 gm PO DAILY [facility] Last Admin: 03/01/22 08:37 Dose: 10 gm Documented by: ORI Sucralfate (Sucralfate 1 Gm Tablet) 1 gm PO QIDACHS [facility] Last Admin: 03/01/22 22:15 Dose: 1 gm Documented by: JACK Trazodone HCl (Trazodone Hcl 50 Mg Tablet) 50 mg PO BEDTIME [facility] Last Admin: 03/01/22 22:20 Dose: 50 mg Documented by: JACK Labs CBC & Chem 7: 02/22/22 11:18 03/01/22 05:40 Labs: Laboratory Results - last 24 hr 03/01/22 03/01/22 03/01/22 07:42 11:15 16:13 POC Glucose 173 H 162 H 104 03/01/22 03/02/22 20:45 07:05 POC Glucose 85 104 Assessment and Plan (1) Acute hyperkalemia: Status: Acute (2) AMS (altered mental status): Status: Acute (3) GIL (acute kidney injury): Status: Acute Plan Admitted with toxic metabolic encephalopathy, GIL on CKD, UTI essentially no change in management, still awaiting for rehab bed # toxic metabolic encephalopathy from UTI, acute renal insufficiency, hyperkalemia and flu. No longer confused, at baseline #UTI- completed Abx course #Influeza--completed tamiflu # Chronic hyperKalemia--Treated with Lokelma, Kayexalate--.Standing Lokelma 10 daily.. Potassium is finally normal #IGL on CKD3, Pre renal? due to diarrhea, treated with IVF and GIL is resolved # h/o dysphagia--recent EGD showed gastritis and esophagitis and supposed PPI and Sucralfate # HTN # NICM/chronic HFpEF - continue amlodipine, carvedilol,? hydralazine increase dose due persistent hig h BP. Lasix was on hold due to GIL bur resuming upon discharge # HLD # prior CVA - continue ASA + clopidogrel - continue atorvastatin, carvedilol # DM2 - basal/bolus insulin--Continue Insulin # mood disorder - continue sertraline + trazodone # neuropathy - continue gabapentin Inpatient due to hyperkalemia requiring treatment and close monitoring of potassium level and frequent not able to do at home, lora need rehab and bed not available yet Family stating not able to care for her at home and therefore needs rehab to get better Check with family if they want to take him home rather than rehab Quality Stroke Does the patient have a stroke diagnosis?: No VTE Prior VTE?: No VTE Risk Level:: Medical - moderate - high VTE Device Contraindication: Treatment Not Indicated VTE Drug Contraindication: N/A - Med Ordered
[2022-03-02] MEDS: Gabapentin 100 MG CAPSULE PO ×2 (09:57→21:52)
[2022-03-02] MEDS: hydrALAZINE HCl 25 MG TABLET PO ×2 (09:57→21:52)
[2022-03-02] MEDS: Clopidogrel Bisulfate 75 MG TABLET PO (09:58)
[2022-03-02] MEDS: amLODIPine Besylate 10 MG TABLET PO (09:58)
[2022-03-02] MEDS: Calcium + Vitamin D 250 MG TABLET 500 MG PO ×2 (09:58→21:52)
[2022-03-02] MEDS: carvediloL 6.25 MG TABLET PO ×2 (09:58→21:52)
[2022-03-02] MEDS: Sertraline HCL 50 MG TABLET PO (09:58)
[2022-03-02] MEDS: Sodium Bicarbonate 650 MG TABLET PO ×3 (09:58→21:53)
[2022-03-02] MEDS: Sodium Zirconium Cyclosilicate 10 GM POWD.PACK PO (09:59)
[2022-03-02] MEDS: Magnesium Oxide 400 MG TABLET PO ×2 (09:59→21:53)
[2022-03-02] MEDS: 0.9 % Sodium Chloride Flush 3 ML SYRINGE IVFLUSH ×3 (09:59→21:53)
[2022-03-02] MEDS: Insulin Glargine,Hum.rec.anlog 100 UNIT/ML 10 ML VIAL 25 UNIT SUBCUT (09:59)
--- NOTE | 2022-03-02 10:00 | MHC.CM.PN ---
Addendum entered by Reshma Gardner RN 03/02/22 11:23: CM MET W/PT AND DTR SPENCER AT BEDSIDE, SPENCER DECLINED TO WAIT FOR BUSINESS APPLICATIONS SPECIALIST, SPENCER REPORTS SHE WILL BE WILLING TO TAKE PT HOME HOWEVER NOT UNTIL TOMORROW AT 1PM AFTER HOSPITAL BED IS DELIVERED AND HOUSE IS CLEANED, DTR SPENCER WILL BE IN AT 1PM TOMORROW TO TAKE PT HOME AND WOULD LIKE PAPERWORK READY, DTR WOULD ALSO LIKE [facility] FOR MED MANAGEMENT, NO PREFERENCE, REFERRAL TO BE PLACED. Original Note: EMR REVIEWED, PER PHYSICAL THERAPY PT INDEPENDENTLY TRANSFERRING FROM BED TO CHAIR, PT IS NOT BEING RECOMMENDED STR AND WILL BE RECOMMENDED HOME NO SERVICES, CM ATTEMPTED TO CONTACT DTR SPENCER AT NUMBER ON FILE, MESSAGE LEFT AND SPENCER CALLED NS BACK, PER CONVERSATION SPENCER DOES NOT WANT TO CARE FOR PT AT HOME, [facility]S [facility] IS NOT THE BEST AND CM WILL REATTEMPT TO SPEAK W/HER W/IT WEB DEVELOPMENT CONSULTANT.
[2022-03-02] MEDS: Sucralfate 1 GM TABLET PO ×4 (10:02→21:53)
[2022-03-02 11:21] LABS: Glucose, Whole Blood 189 mg/dL (60-115)
[2022-03-02] MEDS: Insulin Lispro 100 UNIT/ML 3 ML VIAL SUBCUT ×2 (11:37→16:59)
--- NOTE | 2022-03-02 13:51 | PM.PNNEP ---
Subjective Subjective Date of Service: 03/02/22 Interval history: f/u altered mental status, GIL, hyperkalemia, UTI. Interval history: no new issue, K level has been normal Chart Reviewed. Events noted. Physical Exam Vital Signs: Vital Signs: Last Vital Signs Temp 97.6 F 03/02/22 11:05 Pulse 66 03/02/22 11:05 Resp 21 H 03/02/22 11:05 BP 157/81 H 03/02/22 11:05 Pulse Ox 96 03/02/22 11:05 BMI result Body Mass Index 32.0 Const: General: comfortable and no acute distress HEENT: Head: Yes normocephalic and Yes atraumatic Neck: Neck: Yes no JVD Resp: Auscultation: clear to auscultation bilaterally Cardio: Jugular venous distension: no JVD Rate: regular rate Rhythm: regular rhythm Heart sounds: S1 normal heart sound present and S2 normal heart sound present GI: Auscultation: normal bowel sounds Neuro: General: moves all extremities Extrem: General: Yes no clubbing, cyanosis or edema Objective Data Labs CBC & Chem 7: 02/22/22 11:18 03/01/22 05:40 Labs: Laboratory Results - last 24 hr 03/01/22 03/01/22 03/02/22 16:13 20:45 07:05 POC Glucose 104 85 104 03/02/22 10:58 POC Glucose 189 H Microbiology Microbiology Results: Microbiology 02/24/22 17:23 Urine Catheterized - Straight Catheter Urine Culture - Final No growth. Procedures Date of Service Date of Service: 03/02/22 Assessment & Plan Assessment and plan (1) GIL (acute kidney injury): Status: Acute (2) CKD (chronic kidney disease) stage 4, GFR 15-29 ml/min: Status: Acute Plan 1. GIL: resolved 2. CKD 4: BSL SCr 2.5-2.8 mg/dL. Monitor for volume overload. 3. NAGMA 4. HyperK: d/t CKD and low K 5. MBD of CKD REC: cont NaHCO3 replacement if remains < 24; cont? lokelma to 10 gm qd;? track UOP/resnl func; avoid Ntoxins; low K diet and daily lokelma Time Spent With Patient Time: Total time spent is greater than 50% in coordination of care (as documented) at patient's floor/unit and/or counseling patient: Progress Note: Quality Stroke Does the patient have a stroke diagnosis?: No
[2022-03-02 16:39] LABS: Glucose, Whole Blood 206 mg/dL (60-115)
[2022-03-02 19:59] LABS: Glucose, Whole Blood 145 mg/dL (60-115)
[2022-03-02] MEDS: Atorvastatin Calcium 80 MG TABLET PO (21:52)
[2022-03-02] MEDS: Aspirin Enteric Coated 81 MG TABLET.DR PO (21:52)
[2022-03-02] MEDS: traZODone HCL 50 MG TABLET PO (21:53)
[2022-03-03 03:31] VITALS: BP 146/63; PULSE 72; RESP 16; TEMP 36.4; O2SAT 94
[2022-03-03] MEDS: Heparin Sodium,Porcine 5,000 UNIT/ML VIAL 5000 UNIT SUBCUT ×2 (06:14→17:05)
[2022-03-03 08:00] VITALS: BP 176/74; PULSE 70; RESP 18; TEMP 36.2; O2SAT 92
[2022-03-03 08:47] LABS: Glucose, Whole Blood 162 mg/dL (60-115)
[2022-03-03] MEDS: Sodium Bicarbonate 650 MG TABLET PO ×2 (09:25→17:04)
[2022-03-03] MEDS: Sodium Zirconium Cyclosilicate 10 GM POWD.PACK PO (09:25)
[2022-03-03] MEDS: Insulin Glargine,Hum.rec.anlog 100 UNIT/ML 10 ML VIAL 25 UNIT SUBCUT (09:25)
[2022-03-03] MEDS: Gabapentin 100 MG CAPSULE PO (09:25)
[2022-03-03] MEDS: Calcium + Vitamin D 250 MG TABLET 500 MG PO (09:25)
[2022-03-03] MEDS: 0.9 % Sodium Chloride Flush 3 ML SYRINGE IVFLUSH ×2 (09:25→17:05)
[2022-03-03] MEDS: Clopidogrel Bisulfate 75 MG TABLET PO (09:25)
[2022-03-03] MEDS: Magnesium Oxide 400 MG TABLET PO (09:25)
[2022-03-03] MEDS: Sucralfate 1 GM TABLET PO ×3 (09:25→17:04)
[2022-03-03] MEDS: hydrALAZINE HCl 25 MG TABLET PO (09:25)
[2022-03-03] MEDS: carvediloL 6.25 MG TABLET PO (09:26)
[2022-03-03] MEDS: amLODIPine Besylate 10 MG TABLET PO (09:26)
[2022-03-03] MEDS: Sertraline HCL 50 MG TABLET PO (09:26)
--- NOTE | 2022-03-03 10:19 | PM.DS ---
DS: Providers Provider Date of Service: 03/03/22 Date of admission: 02/22/22 14:55 Date of discharge: 03/03/22 Primary care physician: Alexys Avila MD Consults: 02/23/22 11:23 Consult to Nephrology Routine Consulting Provider: Nahum Trevizo Reason for consultation: gil on ckd , hyperkalemia Has provider been notified: No Attending physician on discharge: Constantino Feliz Discharging clinician: Keysha Sánchez DS: Diagnosis Discharge Diagnosis (1) GIL (acute kidney injury): Status: Acute (2) CKD (chronic kidney disease) stage 4, GFR 15-29 ml/min: Status: Acute (3) Influenza A: Status: Acute (4) Hyperkalemia: Status: Acute DS: Summary Hospital Course Hospital Course: From H&P on day of admission 66yo woman with HFpEF, NICM, CKD3-4, hx CVA, HTN, HLD, DM2 s/p L BKA and multiple finger amputations, GERD,IBS,? and gastroparesis. She was brought to the ED today by daughter due to confusion, she reportedly has been increaseing more confused since last hospitalization which from January 2 to for renal failure, and dyphagia and diarrhea. Work in Ed show potassium of 6, GIL on CKD and is very confused with very foul smelling urine and 4+ bacteria. She is positive for the flu however.? Ammonia level is normal.? CPK is over a 1000 Discharge diagnoses: Toxic metabolic encephalopathy UTI Influenza GIL on CKD 3 Hyperkalemia Dysphagia Hospital course: toxic metabolic encephalopathy was multifactorial from UTI, acute renal insufficiency, hyperkalemia and flu. She is back to her baseline mental status after treatment of underlying issues. UTI- negative culture, treated with Ceftriaxone x 5 days Influenza- completed renal dose of Tamiflu Chronic hyperKalemia--Treated with Lokelma, Kayexalate.Seen by nephrology. Potassium was persistently high and will be on maintenance Lokelma, 10 mg daily however this was not covered by her health insurance and the co-pay was significantly high therefore Nephrology recommended kayexalate 15 gm daily and to repeat labs in 1 week Matabolic acidosis - bicarb was low and she was started on sodium bicarbonate supplementation. Bicarbonate has improved to 27 on day of discharge. discussed with nephrology, recommended to discharge with sodium bicarbonate twice daily. Repeat labs in 1 week GIL on CKD3, Pre renal due to diarrhea, treated with IVF and GIL is resolved. h/o dysphagia--recent EGD showed gastritis and esophagitis, continued on PPI and Sucralfate HTN/NICM/chronic HFpEF continue amlodipine, carvedilol,?hydralazine. Lasix was on hold due to GIL but resuming upon discharge No other changes made to medications Time Spent with Patient Time attestation: Total time spent providing and/or coordinating discharge services: Discharge coordination time: Greater than 30 minutes Quality: Safe Use of Opioids Does Pt have an Active Cancer Diagnosis on the Problem List?: No Quality: Stroke Does the patient have a stroke diagnosis?: No Physical Exam Vital Signs: Vital Signs: Last Vital Signs Temp 97.2 F 03/03/22 08:00 Pulse 70 03/03/22 08:00 Resp 18 03/03/22 08:00 BP 176/74 H 03/03/22 08:00 Pulse Ox 92 03/03/22 08:00 BMI result Body Mass Index 32.0 Const: General: cooperative, comfortable, no acute distress, alert and awake Nutritional Appearance: overweight Resp: Effort & Inspection: normal respiratory effort and able to speak in complete sentences Cardio: Rate: regular rate GI: Inspection: No distended Palpation (GI): Soft to palpation and nontender Extrem: Other: s/p left BKA DS: Data Data Completed and Pending Completed studies during hospitalization [Text1]: Procedures Dilation of Esophagus, Via Natural or Artificial Opening Endoscopic (01/31/22) Dilation of Upper Esophagus, Via Natural or Artificial Opening Endoscopic (08/16/21) Introduction of Other Thrombolytic into Peripheral Vein, Percutaneous Approach (06/05/21) Transfusion of Nonautologous Red Blood Cells into Peripheral Vein, Percutaneous Approach (12/24/20) Labs on day of discharge: Laboratory Results - last 24 hr 03/02/22 03/02/22 03/02/22 10:58 16:36 19:35 POC Glucose 189 H 206 H 145 H 03/03/22 08:30 POC Glucose 162 H Discharge Plan Discharge Patient Disposition: Home Health Service Discharge Diagnosis: encephalopathy, GIL, hyperkalemia, Flu A Referrals: [facility] [Outside] - 1 Day (INTERMEDIATE, A NURSE WILL BE CALLING TO SCHEDULE FIRST VISIT) Alexys Avila MD [Primary Care Provider] - 1 Week Discharge Medications: New amlodipine 10 mg Tablet 10 mg PO DAILY 30 Days Qty: 30 0RF Protocol: Hold for SBP< HOLD for SBP < : 90 famotidine 40 mg tablet 40 mg PO BID 30 Days Qty: 60 0RF sodium bicarbonate 650 mg Tablet 650 mg PO BID 30 Days Qty: 60 0RF sodium polystyrene sulfonate Powder 15 g PO DAILY 30 Days Qty: 454 0RF Continued furosemide [Lasix] 40 mg tablet 40 mg PO BID 90 Days Qty: 180 0RF Rx Instructions: Please call and schedule cardiology appt. carvedilol 6.25 mg tablet 6.25 mg PO BID Qty: 60 5RF Rx Instructions: must administer with a meal/food - Take one tablet twice daily atorvastatin 80 mg tablet 80 mg PO BEDTIME 0RF trazodone 50 mg tablet 50 mg PO BEDTIME 0RF clopidogrel 75 mg tablet 75 mg PO DAILY 0RF aspirin 81 mg tablet,delayed release (DR/EC) 81 mg PO BEDTIME 0RF magnesium oxide 400 mg (241.3 mg magnesium) tablet 400 mg PO BID 0RF gabapentin 100 mg capsule 100 mg PO BID 0RF sertraline 50 mg tablet 50 mg PO DAILY 0RF calcium carbonate-vitamin D3 600 mg(1,500mg) -400 unit tablet 1 tab PO BID 0RF hydralazine 10 mg tablet 1 tab PO BID 0RF insulin lispro [Humalog KwikPen Insulin] 100 unit/mL insulin pen 8 - 12 unit subcut DIRECTED 0RF Lantus Solostar U-100 Insulin 100 unit/mL (3 mL) insulin pen 64 unit subcut DAILY 0RF sucralfate 1 gram tablet 1 g PO QIDACHS 0RF Discontinued amlodipine 2.5 mg tablet 2.5 mg PO DAILY 0RF Discharge Orders: Discharge Order (Routine); Ordered 03/03/22 Ordered By: Keysha Sánchez Diet: advance to usual diet Activity on Discharge: As tolerated Stand Alone Forms: Patient Portal Discharge page Other Ambulatory Orders: Basic Metabolic Panel (Routine) Timeframe: 1 Week Facility: [facility] - Location: Laboratory Ordered By: Keysha Sánchez Care Plan Goals: see below Health Concerns: Elevated potassium levels UTI Flu Plan of Treatment: your dose of norvasc has been increased to 10 mg daily take famotidine as previously prescribed take sodium bicarb twice daily as prescribed take kayexalate daily as prescribed for high potassium call to schedule follow up appointment with nephrology call to schedule follow up with PCP repeat labs in one week Assessment: see discharge summary Discharge Date/Time: 03/03/22 18:45
--- NOTE | 2022-03-03 11:05 | P.F2F_ITS ---
Service Date Service Date: 03/03/22 Encounter Date of encounter: 03/03/22 Reasons for Services Signs and symptoms assessed: needs retirement for medication management Reason for retirement: medication management Overseeing Care: Alexys Avila Homebound: Leaving the home is medically contraindicated at this time without the asist of a device and/or another person due th the listed conditions above and below. Reason homebound: weakness related to hospital stay Certification: Based on the above findings, I certify that this patient is confined to the home and needs intermittent retirement care, physical therapy and/or speech therapy, or continues to need occupational therapy. The patient is under my care, and I have initiated the establishment of the plan of care. The patient will be followed by a physician who will periodically review the plan of care.
[2022-03-03 11:09] LABS: Anion Gap 12 (12-20); Blood Urea Nitrogen 31 mg/dL (9-16); Calcium 8.7 mg/dL (8.4-10.2); Carbon Dioxide 27 mmol/L (22-29); Chloride 105 mmol/L (96-108); Estimated Glomerular Filt Rate 19; Glucose Random 169 mg/dL (60-115); Potassium 4.8 mmol/L (3.3-5.1); Sodium 139 mmol/L (135-145)
[2022-03-03 11:32] LABS: Glucose, Whole Blood 146 mg/dL (60-115)
[2022-03-03 11:33] VITALS: BP 101/64; PULSE 64; RESP 20; TEMP 36.1; O2SAT 93
--- NOTE | 2022-03-03 12:38 | MHC.CM.PN ---
PT WILL DC HOME TODAY WITH RESUMPTION OF [facility]LO[facility] TECHNICAL WRITER AND [facility] DC SUMMARY AND FACE TO FACE SENT TO [facility]IA [facility] DAUGHTER TO TRANSPORT
--- NOTE | 2022-03-03 15:53 | MHC.CM.PN ---
CM CALLED PTS DAUGHTER, SPENCER [phone] AND INFORMED HER OF PT DC SHE REPORTS SHE WILL BE AT HOME WAITING FOR PT AND ASKS THAT BLS TRANSPORT BE ARRANGED DUE TO PTS RECENT CONFUSION. BLS REFERRAL MADE PT WILL DC HOME WITH RESUMPTION OF [facility] PACKER OR APPLIER AND [facility]
[2022-03-03 16:00] VITALS: BP 153/60; PULSE 69; RESP 18; TEMP 36.5; O2SAT 94
[2022-03-03 16:31] LABS: Glucose, Whole Blood 177 mg/dL (60-115)
[2022-03-03] MEDS: Insulin Lispro 100 UNIT/ML 3 ML VIAL SUBCUT (17:04)
== END 2022-03-03 18:45 | disposition home health service (06) | DRG 865 ==
LOC: HO.ED 13:04 → HO.EDOVER 15:02 → HO.S3 02-23 00:38
PROVIDERS: Internal Medicine; Internal Medicine Nephrology; Physician Assistant; Admitting Provider Internal Medicine; Emergency Provider Emergency Medicine; PCP Internal Medicine; Visit Provider Physician Assistant Medical
DX: J10.81 Influenza due to other identified influenza virus with encephalopathy (principal); G92.8 Other toxic encephalopathy; N39.0 Urinary tract infection, site not specified; I13.0 Hypertensive heart and chronic kidney disease with heart failure and stage 1 through stage 4 chronic kidney disease, or unspecified chronic kidney disease; N18.4 Chronic kidney disease, stage 4 (severe); I50.32 Chronic diastolic (congestive) heart failure; N17.9 Acute kidney failure, unspecified; I42.8 Other cardiomyopathies; E87.2 Acidosis; K58.0 Irritable bowel syndrome with diarrhea; Z20.822 Contact with and (suspected) exposure to COVID-19; Z89.512 Acquired absence of left leg below knee; E11.22 Type 2 diabetes mellitus with diabetic chronic kidney disease; K21.9 Gastro-esophageal reflux disease without esophagitis; E86.0 Dehydration; E87.5 Hyperkalemia; F39 Unspecified mood [affective] disorder; E11.40 Type 2 diabetes mellitus with diabetic neuropathy, unspecified; N25.0 Renal osteodystrophy; E78.5 Hyperlipidemia, unspecified; Z86.73 Personal history of transient ischemic attack (TIA), and cerebral infarction without residual deficits; Z91.040 Latex allergy status; Z79.4 Long term (current) use of insulin; Z79.02 Long term (current) use of antithrombotics/antiplatelets; Z79.899 Other long term (current) drug therapy
CPT/HCPCS: 36415; 70450; 71045; 80048; 80051; 80076; 80307; 81001; 82140; 82550; 82565; 82947; 83690; 83735; 83880; 84132; 84484; 85025; 85610; 87086; 87502; 87635; 93005; 96361; 96374; 97162; 99285; J0692; J0696

== ENCOUNTER 2022-03-07 17:05 | Emergency (ER) | payer MEDICARE, SELFPAY ==
--- NOTE | ~2022-03-07 | CT_ITS ---
EXAMINATION: CT ABDOMEN AND PELVIS WITHOUT CONTRAST CLINICAL INFORMATION: Constipation with question bowel obstruction/fecal impaction. Flank pain COMPARISON: Multiple prior CT scans of the abdomen and pelvis the most recent of which was 01/31/2022 TECHNIQUE: Multidetector volumetric imaging was performed from the superior aspect of the liver through the pubic symphysis. Sagittal and coronal reformatted images were obtained on the technologist's workstation. This CT examination was performed using dose optimization techniques as appropriate, variously including the following: *Automated exposure control *Adjustment of mA and/or kV according to patient size (this includes techniques or standardized protocols for targeted exams where dose is matched to indication/reason for exam; i.e. extremities or head) *Use of iterative reconstruction technique DLP: 809 mGy-cm FINDINGS: LUNG BASES: There are new bilateral small pleural effusions present when compared to the prior study along with some increased septal thickening. Basilar basilar atelectasis is present as well. LIVER, GALLBLADDER, AND BILIARY TREE: The liver is normal in size, shape, and attenuation. Few scattered granulomas are present. No focal hepatic lesion or biliary ductal dilatation is present. Status post cholecystectomy. PANCREAS: Unremarkable. SPLEEN: Splenic granulomas are seen. ADRENAL GLANDS: Unremarkable. KIDNEYS AND URETERS: The kidneys are normal in size, shape, and attenuation. No hydronephrosis, hydroureter, or calculi seen. There is bilateral nonspecific perinephric stranding. BLADDER: Unremarkable. GASTROINTESTINAL TRACT: The small and large bowel are unremarkable. There is no significant stool burden in the colon. There is no evidence of obstruction. Small bowel anastomosis appears to be present without evidence of obstruction. The appendix is unremarkable. ABDOMINAL WALL: No significant hernia is appreciated. There is been mesh hernia repair previously. LYMPH NODES: No retroperitoneal lymphadenopathy. VASCULAR: Unremarkable. PELVIC VISCERA: Status post post hysterectomy. An abnormal pelvic mass or free intraperitoneal fluid is not seen. OSSEOUS STRUCTURES: Unremarkable. CT/CT abdomen pelvis wo con IMPRESSION: 1. There is no evidence of bowel obstruction. An unusual stool burden in the colon is not present. 2. Incidental note made of new bilateral pleural effusions, cholecystectomy, hepatic and splenic granulomas, apparent small bowel anastomosis, prior hysterectomy and hernia repair. Fleischner guidelines were followed.
[2022-03-07 17:21] VITALS: BP 120/72; BP 146/51; PULSE 76; PULSE 81; RESP 24; TEMP 36.8; O2SAT 88; O2SAT 95; BMI 37.6
--- NOTE | 2022-03-07 17:25 | ED_ITS ---
HPI - Abdominal Pain General Chief Complaint: Urogenital-Female Stated Complaint: R FLANK PAIN X'S 2 DAYS Time Seen by Provider: 03/07/22 17:25 Source: patient Mode of arrival: ambulatory Limitations: no limitations History of Present Illness HPI narrative: Patient with chronic back problems complaining of bilateral flank pain for last 1 month got worse in last 2 days no nausea no vomiting no diarrhea patient feel bloated no fever no chills no urinary complaints patient complaining of constipation patient has CT scan done in February 20 which was negative for any acute pathology Related Data Home Medications Medication Instructions Recorded Confirmed aspirin 81 mg tablet,delayed 81 mg PO BEDTIME 06/20/21 02/22/22 release atorvastatin 80 mg tablet 80 mg PO BEDTIME 06/20/21 02/22/22 calcium carbonate 600 mg-vitamin 1 tab PO BID 06/20/21 02/22/22 D3 10 mcg (400 unit) tablet clopidogrel 75 mg tablet 75 mg PO DAILY 06/20/21 02/22/22 gabapentin 100 mg capsule 100 mg PO BID 06/20/21 02/22/22 magnesium oxide 400 mg (241.3 mg 400 mg PO BID 06/20/21 02/22/22 magnesium) tablet sertraline 50 mg tablet 50 mg PO DAILY 06/20/21 02/22/22 trazodone 50 mg tablet 50 mg PO BEDTIME 06/20/21 02/22/22 hydralazine 10 mg tablet 1 tab PO BID 01/31/22 02/22/22 insulin glargine 100 unit/mL (3 64 unit SUBCUT DAILY 02/22/22 02/22/22 mL) subcutaneous pen (Lantus Solostar U-100 Insulin) insulin lispro 100 unit/mL 8 - 12 unit SUBCUT DIRECTED 02/22/22 02/22/22 subcutaneous pen (Humalog KwikPen (U-100) Insulin) sucralfate 1 gram tablet 1 g PO QIDACHS 02/22/22 02/22/22 Previous Rx's Medication Instructions Recorded furosemide 40 mg tablet (Lasix) 40 mg PO BID 90 Days #180 tab 02/18/22 carvedilol 6.25 mg tablet 6.25 mg PO BID #60 tab 02/21/22 amlodipine 10 mg tablet 10 mg PO DAILY 30 Days #30 tab 03/03/22 famotidine 40 mg tablet 40 mg PO BID 30 Days #60 tab 03/03/22 sodium bicarbonate 650 mg tablet 650 mg PO BID 30 Days #60 tab 03/03/22 sodium polystyrene sulfonate 15 g PO DAILY 30 Days #454 g 03/03/22 oxycodone 5 mg tablet 5 mg PO Q6H PRN #20 tab 03/07/22 Allergies Allergy/AdvReac Type Severity Reaction Status Date / Time latex [LATEX] Allergy Intermediate ITCHY Verified 06/29/21 13:08 Review of Systems Review of Systems Yes all other systems are reviewed and are negative FORMERLY [facility], [facility]–1983 Past Medical History Medical History Acute on chronic renal failure Acute respiratory failure with hypoxia Anemia Blister of finger without infection Cholecystectomy planned CKD (chronic kidney disease) CKD (chronic kidney disease), stage IV Congestive heart failure Diabetes Diabetes mellitus Elevated d-dimer Essential hypertension Gastroparesis GERD (gastroesophageal reflux disease) Hand pain Hernia HLD (hyperlipidemia) HTN (hypertension) Hypomagnesemia Irritable bowel syndrome with diarrhea Lightheadedness Low blood pressure Non-ST elevated myocardial infarction Nonischemic cardiomyopathy Other and unspecified hyperlipidemia Pharyngoesophageal dysphagia Type 2 diabetes mellitus with unspecified complications Surgical History H/O: hysterectomy History of esophagogastroduodenoscopy (EGD) Hx of colonoscopy Hx of eye surgery Family History Family History Father Lung cancer Mother Diabetes HTN (hypertension) Heart disease Sister Diabetes Heart disease Brother Heart disease Son Diabetes Daughter Diabetes Social History Social History Household Members: Family Household Members Other:: lives with dtr and grandson Housing: House Do you presently have visiting nurse or other home services: No Unable to assess alcohol history related to: Unknown Alcohol intake: never Patient Tobacco Use Status: Never used Tobacco Second Hand Smoke Exposure: No Advance Directives: No Advance Directives Information Provided: No Advance Directives on File: No Advance Directives Date on File: 02/02/22 service: No Current occupational status: disabled Physical Exam ED Vital Signs: Vital Signs - 24 hr 03/07/22 17:21 03/07/22 17:55 03/07/22 19:46 Temperature 98.3 F 98.1 F Pulse Rate 76 74 Respiratory Rate 24 H 18 Blood Pressure 146/51 H 132/64 Pulse Oximetry 88 L 95 97 03/07/22 21:26 Temperature 98.1 F Pulse Rate 72 Respiratory Rate 18 Blood Pressure 124/57 L Pulse Oximetry 94 BMI result Body Mass Index 37.6 Appearance: Alert. Oriented X3. No acute distress. Eyes: PERRLA, no pallor ENT: Pharynx normal. Oral Mucosa moist Neck: Normal inspection. Neck supple. CVS: Normal heart rate and rhythm. Pulses normal. Respiratory: No respiratory distress. Equal air entry bilateral, no wheezing/rales/rhonchi Abdomen: Soft and nontender. Bowel sounds are present, no mass palpable, b/l CVA tenderness Skin: Skin warm and dry. Normal skin color. Normal skin turgor. Extremities: No lower extremity edema. No calf tenderness left BKA Neuro: Oriented X 3. No motor deficit. MDM - Abdominal Pain MDM Narrative Medical decision making narrative: Patient with chronic back pain came with increasing pain for last [address] scan negative for any acute pathology patient has CKD with chronic anemia the urine is negative for UTI patient comfortable discharge patient home on oxycodone for chronic back pain Lab Data Attestation: I reviewed the patient's lab results. Result diagrams: 03/07/22 19:03 03/07/22 19:03 Labs: Lab Results 03/07/22 03/07/22 03/07/22 Range/Units 19:03 19:03 19:03 WBC 9.4 (4.8-10.8) X10*3/uL RBC 2.92 L (4.20-5.50) X10*6/uL Hgb 7.6 L (12.0-16.0) g/dl Hct 24.5 L (37.0-47.0) % MCV 83.9 (80.0-98.0) fL MCH 26.0 L (27.0-33.0) pg MCHC 31.0 (31.0-35.0) g/dl RDW 13.6 (11.0-16.0) % Plt Count 251 (160-400) X10*3/uL MPV 9.8 (9.4-12.3) fL Immature Gran % (Auto) 0.6 H (0.0-0.4) % Neut % (Auto) 64.9 (45-73) % Lymph % (Auto) 22.7 (20-40) % [place] % (Auto) 8.9 (2-11) % Eos % (Auto) 2.7 (0-4) % Baso % (Auto) 0.2 (0-2) % Lymph # (Auto) 2.1 (1.2-4.9) X10*3/uL [place] # (Auto) 0.8 (0.1-1.2) X10*3/uL Eos # (Auto) 0.3 (0.0-0.4) X10*3/uL Baso # (Auto) 0.0 (0.0-0.2) X10*3/uL Abs Immat Gran (auto) 0.06 H (0.00-0.03) X10*3/uL Absolute Neuts (auto) 6.1 (2.0-8.3) x10*3/uL Absolute Nucleated RBC 0.000 (0.0-0.012) X10*3/uL Nucleated RBC % (auto) 0.0 (0.0-0.2) /100WBC Sodium 143 (135-145) mmol/L Potassium 4.2 (3.3-5.1) mmol/L Chloride 108 (96-108) mmol/L Carbon Dioxide 26 (22-29) mmol/L Anion Gap 13 (12-20) BUN 29 H (9-16) mg/dL Creatinine 2.61 H (0.5-1.4) mg/dL Estim Creat Clear Calc 18.6 Estimated GFR 18 Random Glucose 69 (60-115) mg/dL Calcium 8.3 L (8.4-10.2) mg/dL Total Bilirubin 0.4 (0.0-1.0) mg/dL AST 16 D (5-31) U/L ALT 15 (0-31) U/L Alkaline Phosphatase 138 H (39-117) U/L Total Protein 6.8 (6.5-8.0) g/dL Albumin 3.2 L (3.5-5.0) g/dL Lipase 7 L (8-78) U/L Urine Color Urine Appearance Urine pH (5.0-8.0) Ur Specific [place] (1.005-1.025) Urine Protein (NEG-TRACE) MG/DL Urine Glucose (UA) (NEG) MG/DL Urine Ketones (NEG) MG/DL Urine Blood (NEG) Urine Nitrite (NEG) Ur Leukocyte Esterase (NEG) Urine RBC (0) /HPF Urine WBC (0-4) /HPF Ur Squamous Epith Cells /LPF Urine Bacteria /LPF 03/07/22 Range/Units 20:12 WBC (4.8-10.8) X10*3/uL RBC (4.20-5.50) X10*6/uL Hgb (12.0-16.0) g/dl Hct (37.0-47.0) % MCV (80.0-98.0) fL MCH (27.0-33.0) pg MCHC (31.0-35.0) g/dl RDW (11.0-16.0) % Plt Count (160-400) X10*3/uL MPV (9.4-12.3) fL Immature Gran % (Auto) (0.0-0.4) % Neut % (Auto) (45-73) % Lymph % (Auto) (20-40) % [place] % (Auto) (2-11) % Eos % (Auto) (0-4) % Baso % (Auto) (0-2) % Lymph # (Auto) (1.2-4.9) X10*3/uL [place] # (Auto) (0.1-1.2) X10*3/uL Eos # (Auto) (0.0-0.4) X10*3/uL Baso # (Auto) (0.0-0.2) X10*3/uL Abs Immat Gran (auto) (0.00-0.03) X10*3/uL Absolute Neuts (auto) (2.0-8.3) x10*3/uL Absolute Nucleated RBC (0.0-0.012) X10*3/uL Nucleated RBC % (auto) (0.0-0.2) /100WBC Sodium (135-145) mmol/L Potassium (3.3-5.1) mmol/L Chloride (96-108) mmol/L Carbon Dioxide (22-29) mmol/L Anion Gap (12-20) BUN (9-16) mg/dL Creatinine (0.5-1.4) mg/dL Estim Creat Clear Calc Estimated GFR Random Glucose (60-115) mg/dL Calcium (8.4-10.2) mg/dL Total Bilirubin (0.0-1.0) mg/dL AST (5-31) U/L ALT (0-31) U/L Alkaline Phosphatase (39-117) U/L Total Protein (6.5-8.0) g/dL Albumin (3.5-5.0) g/dL Lipase (8-78) U/L Urine Color YELLOW Urine Appearance CLEAR Urine pH 6.5 (5.0-8.0) Ur Specific [place] 1.020 (1.005-1.025) Urine Protein 3+ H (NEG-TRACE) MG/DL Urine Glucose (UA) NEG (NEG) MG/DL Urine Ketones NEG (NEG) MG/DL Urine Blood 1+ H (NEG) Urine Nitrite NEG (NEG) Ur Leukocyte Esterase NEG (NEG) Urine RBC 5-9 H (0) /HPF Urine WBC 0-2 (0-4) /HPF Ur Squamous Epith Cells 1+ /LPF Urine Bacteria NONE /LPF Discharge Plan Discharge Clinical Impression: Chronic back pain, Anemia in chronic kidney disease (CKD) Patient Disposition: Home, Self-Care Instructions: Chronic Kidney Disease (ED), Anemia (ED), Chronic Back Pain (DC) Additional Instructions: Pain medication as advised for chronic back pain Follow-up with your 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 carvedilol 6.25 mg tablet 6.25 mg PO BID Qty: 60 5RF Rx Instructions: must administer with a meal/food - Take one tablet twice daily atorvastatin 80 mg tablet 80 mg PO BEDTIME 0RF trazodone 50 mg tablet 50 mg PO BEDTIME 0RF clopidogrel 75 mg tablet 75 mg PO DAILY 0RF aspirin 81 mg tablet,delayed release (DR/EC) 81 mg PO BEDTIME 0RF magnesium oxide 400 mg (241.3 mg magnesium) tablet 400 mg PO BID 0RF gabapentin 100 mg capsule 100 mg PO BID 0RF sertraline 50 mg tablet 50 mg PO DAILY 0RF calcium carbonate-vitamin D3 600 mg(1,500mg) -400 unit tablet 1 tab PO BID 0RF hydralazine 10 mg tablet 1 tab PO BID 0RF insulin lispro [Humalog KwikPen Insulin] 100 unit/mL insulin pen 8 - 12 unit subcut DIRECTED 0RF Lantus Solostar U-100 Insulin 100 unit/mL (3 mL) insulin pen 64 unit subcut DAILY 0RF sucralfate 1 gram tablet 1 g PO QIDACHS 0RF amlodipine 10 mg Tablet 10 mg PO DAILY 30 Days Qty: 30 0RF Protocol: Hold for SBP< HOLD for SBP < : 90 famotidine 40 mg tablet 40 mg PO BID 30 Days Qty: 60 0RF sodium bicarbonate 650 mg Tablet 650 mg PO BID 30 Days Qty: 60 0RF sodium polystyrene sulfonate Powder 15 g PO DAILY 30 Days Qty: 454 0RF Interventions: ED Discharge Assessment Last Done: 03/07/22 22:26 Discharge Date/Time: 03/07/22 22:26
[2022-03-07 17:55] VITALS: O2SAT 95
[2022-03-07] MEDS: oxyCODONE HCl Immed Release 5 MG TABLET 10 MG PO (18:44)
[2022-03-07 19:07] LABS: MANUAL DIFF FLAG NO
[2022-03-07 19:09] LABS: Basophils Percent Auto 0.2 % (0-2); Eosinophils Absolute Auto 0.3 X10*3/uL (0.0-0.4); Eosinophils Percent Auto 2.7 % (0-4); Hematocrit 24.5 % (37.0-47.0); Hemoglobin 7.6 g/dl (12.0-16.0); Imm Gran Abs Auto 0.06 X10*3/uL (0.00-0.03); Imm Gran Pct Auto 0.6 % (0.0-0.4); Lymphocytes Absolute Auto 2.1 X10*3/uL (1.2-4.9); Lymphocytes Percent Auto 22.7 % (20-40); Mean Corpuscular Volume 83.9 fL (80.0-98.0); Mean Platelet Volume 9.8 fL (9.4-12.3); Monocytes Absolute Auto 0.8 X10*3/uL (0.1-1.2); Monocytes Percent Auto 8.9 % (2-11); Neutrophils Absolute Auto 6.1 x10*3/uL (2.0-8.3); Neutrophils Percent Auto 64.9 % (45-73); Platelet Count 251 X10*3/uL (160-400); Red Blood Count 2.92 X10*6/uL (4.20-5.50); Red Cell Distribution Width 13.6 % (11.0-16.0); White Blood Count 9.4 X10*3/uL (4.8-10.8)
[2022-03-07 19:37] LABS: Alanine Aminotransferase 15 U/L (0-31); Albumin Level 3.2 g/dL (3.5-5.0); Alkaline Phosphatase 138 U/L (39-117); Anion Gap 13 (12-20); Aspartate Amino Transferase 16 U/L (5-31); Bilirubin Total 0.4 mg/dL (0.0-1.0); Blood Urea Nitrogen 29 mg/dL (9-16); Calcium 8.3 mg/dL (8.4-10.2); Carbon Dioxide 26 mmol/L (22-29); Chloride 108 mmol/L (96-108); Creatinine Clr Calc Pharmacy 18.6; Estimated Glomerular Filt Rate 18; Glucose Random 69 mg/dL (60-115); Lipase 7 U/L (8-78); Potassium 4.2 mmol/L (3.3-5.1); Sodium 143 mmol/L (135-145); Total Protein 6.8 g/dL (6.5-8.0)
[2022-03-07 19:46] VITALS: BP 132/64; PULSE 74; RESP 18; TEMP 36.7; O2SAT 97
--- NOTE | 2022-03-07 19:48 | PC.NURSE ---
report received from DONNIE Mejía. pt is alert and oriented. resting in bed. no signs of acute distress notice
[2022-03-07 20:24] LABS: Appearance Urine CLEAR; Color Urine YELLOW; Glucose Urine UA NEG (NEG); Leukocyte Esterase Urine NEG (NEG); Nitrite Urine NEG (NEG); PH 6.5 (5.0-8.0); UACC Culture Trigger NO; Urine Blood 1+ (NEG); Urine Ketones NEG (NEG); Urine Protein 3+ MG/DL (NEG-TRACE)
[2022-03-07 20:34] LABS: Squamous Epithelial Cell Urine 1+ /LPF; WBC Urine 0-2 /HPF (0-4)
[2022-03-07 21:26] VITALS: BP 124/57; PULSE 72; RESP 18; TEMP 36.7; O2SAT 94
== END 2022-03-07 22:26 | disposition home or self-care (01) ==
PROVIDERS: Emergency Provider Internal Medicine; PCP Internal Medicine
DX: E11.22 Type 2 diabetes mellitus with diabetic chronic kidney disease (principal); I13.0 Hypertensive heart and chronic kidney disease with heart failure and stage 1 through stage 4 chronic kidney disease, or unspecified chronic kidney disease; N18.4 Chronic kidney disease, stage 4 (severe); I50.9 Heart failure, unspecified; D63.1 Anemia in chronic kidney disease; G89.29 Other chronic pain; R10.9 Unspecified abdominal pain; E78.5 Hyperlipidemia, unspecified; Z79.82 Long term (current) use of aspirin; Z79.4 Long term (current) use of insulin; Z79.02 Long term (current) use of antithrombotics/antiplatelets
CPT/HCPCS: 36415; 51701; 74176; 80053; 81001; 83690; 85025; 99284

== ENCOUNTER 2022-03-09 18:03 | Inpatient (IN) | payer MEDICARE, SELFPAY ==
--- NOTE | ~2022-03-09 | CT_ITS ---
EXAMINATION: CT HEAD WITHOUT CONTRAST CLINICAL INFORMATION: Confusion. COMPARISON: CT head from 02/22/2022. TECHNIQUE: Contiguous axial imaging was performed from the skull base to vertex without intravenous administration of contrast. This CT examination was performed using dose optimization techniques as appropriate, variously including the following: *Automated exposure control. *Adjustment of mA and/or kV according to patient size (this includes techniques or standardized protocols for targeted exams where dose is matched to indication/reason for exam; i.e. extremities or head). *Use of iterative reconstruction technique. DLP: 678 mGy-cm FINDINGS: There is no evidence of acute intracranial hemorrhage or edematous territorial infarction. Scattered hypoattenuation in the periventricular and deep white matter are consistent with moderate microangiopathy. 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 No new loss of chery-white matter differentiation. Proportional prominence of the ventricles and sulcal spaces. No evidence for obstructive hydrocephalus. No abnormal mass effect or midline shift. No extra-axial fluid collections. Calcific atherosclerotic disease of the intracranial internal carotid arteries. No hyperdense vessel sign. No acute soft tissue or osseous abnormalities. Mild mucosal thickening of the paranasal sinuses. The mastoid air cells and middle ear cavities are clear. Bilateral lens extractions. CT/CT head/brain wo con IMPRESSION: 1. No evidence of acute intracranial hemorrhage or edematous territorial infarction. 2. Moderate underlying microangiopathy and generalized cerebral volume loss. Chronic lacunar infarcts of the deep nuclei.
--- NOTE | ~2022-03-09 | CT_ITS ---
EXAMINATION: CT CHEST WITHOUT CONTRAST CLINICAL INFORMATION: Hypoxia COMPARISON: Previous chest x-ray most recent 03/15/2022 TECHNIQUE: Multidetector volumetric CT imaging of the chest was done. Axial MIP volume rendering provided. Sagittal and coronal reformatted images were obtained. This CT examination was performed using dose optimization techniques as appropriate, variously including the following: *Automated exposure control *Adjustment of mA and/or kV according to patient size (this includes techniques or standardized protocols for targeted exams where dose is matched to indication/reason for exam; i.e. extremities or head) *Use of iterative reconstruction technique DLP: 264 mGy-cm FINDINGS: LUNGS: There is a mm right upper lobe nodule axial image 148 series 5. There is diffuse groundglass attenuation seen in the upper lobes. There is denser atelectasis or consolidation seen at the lung bases. MEDIASTINUM: The heart is slightly enlarged. There is a very small pericardial effusion. There is coronary artery and aortic valve calcification. There is diffuse shotty mediastinal lymphadenopathy. Some lymph nodes are partially calcified. Evaluation for hilar adenopathy is limited without IV contrast. PLEURA: There is a large right pleural effusion and moderate left pleural effusion. AXILLA: No lymphadenopathy. UPPER ABDOMEN: The gallbladder has been removed. OSSEOUS STRUCTURES: There are degenerative changes of the spine. CT/CT chest wo con IMPRESSION: Enlarged heart. Increased groundglass attenuation in the upper lungs and denser atelectasis or consolidation in the lower lungs. Bilateral pleural effusions, right greater than left. CHF and pneumonia should be considered. Shotty mediastinal lymphadenopathy. No enlarged lymph nodes seen. 8 mm right upper lobe nodule. Chest CT follow-up in one year recommended. Fleischner guidelines were followed.
--- NOTE | ~2022-03-09 | US_ITS ---
EXAMINATION: US ABDOMEN LIMITED CLINICAL INFORMATION: Right upper quadrant pain.. COMPARISON: None TECHNIQUE: Real-time imaging of the right upper quadrant abdominal viscera. FINDINGS: PANCREAS: The pancreas small in size but has normal echogenic pattern. LIVER: Normal. The liver is normal in size. The liver contour is normal. Parenchymal echogenicity is normal. No focal hepatic lesion. There is no intrahepatic biliary duct dilatation seen. GALLBLADDER: The gallbladder has been surgically removed. COMMON BILE DUCT: Normal in caliber measuring 0.7 cm in diameter. RIGHT KIDNEY: Normal. No hydronephrosis. No renal calculi or focal parenchymal lesions. The kidney measures 9.3 cm in maximum dimension. FREE FLUID: None. US/US abdomen limited IMPRESSION: Small pancreas but otherwise unremarkable. The gallbladder has been surgically removed. Normal CBD.
--- NOTE | ~2022-03-09 | XR_ITS ---
EXAMINATION: XR CHEST CLINICAL INFORMATION: Cough COMPARISON: Chest radiograph 01/31/2022, CT abdomen pelvis 03/07/2020 TECHNIQUE: Frontal view of the chest was obtained. FINDINGS: The heart is mildly enlarged. Central vasculature remains prominent. Some scattered patchy density seen most prominent in the lower lobes better appreciated on CT scan from 2 days ago. Subpulmonic pleural effusions are present as well. XR/XR chest 1V IMPRESSION: Cardiomegaly and small bilateral effusions with pulmonary vascular congestion. Scattered opacities may be related to CHF or possibly superimposed infiltrates
--- NOTE | ~2022-03-09 | XR_ITS ---
EXAMINATION: XR CHEST CLINICAL INFORMATION: Shortness of breath. COMPARISON: Multiple priors with the last chest x-ray of 03/09/2022, chest CT of 04/13/2018. TECHNIQUE: Frontal view of the chest was obtained. FINDINGS: The patient is rotated to the right. Cardiomediastinal silhouette is likely unchanged. Trace right and small left pleural effusions are suspected. Mild diffuse interstitial prominence is noted. Streaky densities in the bilateral mid to lower lung zones with appearance favoring atelectasis. No acute osseous abnormality. Visualized upper abdomen is grossly unremarkable. XR/XR chest 1V IMPRESSION: Findings suggestive of mild interstitial edema with small bilateral pleural effusions. No dense consolidation is noted. Bilateral streaky atelectasis.
--- NOTE | ~2022-03-09 | XR_ITS ---
EXAMINATION: XR CHEST CLINICAL INFORMATION: Hypoxia. Dyspnea. COMPARISON: Chest radiograph 03/12/2022. TECHNIQUE: Frontal view of the chest was obtained. FINDINGS: Multiple external artifacts overlie the thorax. Mild blunting of the left right costophrenic sulci is noted. Mild bibasilar airspace opacities are noted with findings most pronounced in the left lung base were obscuration of the left hemidiaphragmatic margin is noted. Course horizontally oriented reticular opacities are present in the lung bases. No pneumothoraces visualized. The heart size is grossly normal. XR/XR chest 1V IMPRESSION: *Small bilateral pleural effusions unchanged in size compared with 03/12/2022. *Mild bibasilar atelectasis and/or consolidation with findings most pronounced in the left lung base unchanged compared with 03/12/2022. Additionally, bibasilar platelike atelectasis is present.
[2022-03-09 18:16] VITALS: BP 131/50; BP 165/80; PULSE 75; PULSE 77; RESP 16; TEMP 37.4; O2SAT 94; BMI 35.5
--- NOTE | 2022-03-09 18:21 | ED_ITS ---
HPI - General Adult General Chief complaint: General Medical Stated complaint: Hypoglycemia Time Seen by Provider: 03/09/22 22:02 Source: patient and EMS Mode of arrival: EMS Limitations: language barrier History of Present Illness HPI narrative: 67-year-old female presents via EMS for hypoglycemia. Family called EMS when they noted her blood sugar was low. EMS noted blood sugar of 41, gave 100 mL of D10 on transit. Onset (ago): hour(s) (Within the hour of arrival) Radiation: non-radiation Severity: severe Relieving factors: none Exacerbating factors: none Associated symptoms: confusion, diaphoresis and malaise Treatments prior to arrival: other (Glucose) Related Data Home Medications Medication Instructions Recorded Confirmed aspirin 81 mg tablet,delayed 81 mg PO BEDTIME 06/20/21 02/22/22 release atorvastatin 80 mg tablet 80 mg PO BEDTIME 06/20/21 02/22/22 calcium carbonate 600 mg-vitamin 1 tab PO BID 06/20/21 02/22/22 D3 10 mcg (400 unit) tablet clopidogrel 75 mg tablet 75 mg PO DAILY 06/20/21 02/22/22 gabapentin 100 mg capsule 100 mg PO BID 06/20/21 02/22/22 magnesium oxide 400 mg (241.3 mg 400 mg PO BID 06/20/21 02/22/22 magnesium) tablet sertraline 50 mg tablet 50 mg PO DAILY 06/20/21 02/22/22 trazodone 50 mg tablet 50 mg PO BEDTIME 06/20/21 02/22/22 hydralazine 10 mg tablet 1 tab PO BID 01/31/22 02/22/22 insulin glargine 100 unit/mL (3 64 unit subcut DAILY 02/22/22 02/22/22 mL) subcutaneous pen (Lantus Solostar U-100 Insulin) insulin lispro 100 unit/mL 8 - 12 unit subcut DIRECTED 02/22/22 02/22/22 subcutaneous pen (Humalog KwikPen (U-100) Insulin) sucralfate 1 gram tablet 1 g PO QIDACHS 02/22/22 02/22/22 Previous Rx's Medication Instructions Recorded furosemide 40 mg tablet (Lasix) 40 mg PO BID 90 days #180 tabs 02/18/22 carvedilol 6.25 mg tablet 6.25 mg PO BID #60 tabs 02/21/22 amlodipine 10 mg tablet 10 mg PO DAILY 30 days #30 tabs 03/03/22 famotidine 40 mg tablet 40 mg PO BID 30 days #60 tabs 03/03/22 sodium bicarbonate 650 mg tablet 650 mg PO BID 30 days #60 tabs 03/03/22 sodium polystyrene sulfonate 15 g PO DAILY 30 days #454 grams 03/03/22 oxycodone 5 mg tablet 5 mg PO Q6H PRN Pain, Severe #20 03/07/22 tabs Allergies Allergy/AdvReac Type Severity Reaction Status Date / Time latex [LATEX] Allergy Intermediate ITCHY Verified 06/29/21 13:08 Review of Systems Review of Systems: Constitutional: Positive lethargy, positive diaphoresis No Fever, No Chills ENT/Mouth: No Ear Pain, No Hoarseness, No sore throat Eyes: No Eye Pain, No Swelling, No Redness, No Foreign Body Cardiovascular: No Chest Pain, No SOB Respiratory: No Cough, No Dyspnea Gastrointestinal: No Nausea, No Vomiting, No Diarrhea, No abdominal Pain Genitourinary: No Dysuria, No Hematuria Musculoskeletal: No joint pain, No Myalgias, No Joint Swelling Skin: No Skin lacerations, No rash Neuro: No Weakness, No Numbness, No Paresthesias, No Loss of Consciousness, No Dizziness, No Headache Psych: No Anxiety/Panic, No Depression Heme/Lymph: no easy bruising, no Lymphadenopathy Endocrine: No Polyuria, No Polydipsia Yes all other systems are reviewed and are negative PMFSH Past Medical History Attestation statement: The following information was validated with the patient. Source: old records reviewed Medical History Acute on chronic renal failure Acute respiratory failure with hypoxia Anemia Blister of finger without infection Cholecystectomy planned CKD (chronic kidney disease) CKD (chronic kidney disease), stage IV Congestive heart failure Diabetes Diabetes mellitus Elevated d-dimer Essential hypertension Gastroparesis GERD (gastroesophageal reflux disease) Hand pain Hernia HLD (hyperlipidemia) HTN (hypertension) Hypomagnesemia Irritable bowel syndrome with diarrhea Lightheadedness Low blood pressure Non-ST elevated myocardial infarction Nonischemic cardiomyopathy Other and unspecified hyperlipidemia Pharyngoesophageal dysphagia Type 2 diabetes mellitus with unspecified complications Surgical History H/O: hysterectomy History of esophagogastroduodenoscopy (EGD) Hx of colonoscopy Hx of eye surgery Family History Family History Father Lung cancer Mother Diabetes HTN (hypertension) Heart disease Sister Diabetes Heart disease Brother Heart disease Son Diabetes Daughter Diabetes Social History Social History Household Members: Family Household Members Other:: lives with dtr and grandson Housing: House Do you presently have visiting nurse or other home services: No Unable to assess alcohol history related to: Unknown Alcohol intake: never Patient Tobacco Use Status: Never used Tobacco Second Hand Smoke Exposure: No Advance Directives: Yes Advance Directives on File: Yes Advance Directives Date on File: 02/02/22 service: No Current occupational status: disabled Physical Exam ED Vital Signs: Vital Signs - 24 hr 03/09/22 18:16 03/09/22 21:39 03/09/22 22:42 Temperature 99.4 F 98.4 F 98.3 F Pulse Rate 75 84 79 Respiratory Rate 16 21 H 16 Blood Pressure 131/50 L 161/52 H 153/55 H Pulse Oximetry 94 92 94 Oxygen Delivery Method Room Air Room Air Nasal Cannula Room Air Oxygen Flow Rate 2 03/09/22 23:13 Temperature Pulse Rate 74 Respiratory Rate 16 Blood Pressure 165/73 H Pulse Oximetry 94 Oxygen Delivery Method Room Air Oxygen Flow Rate BMI result Body Mass Index 35.5 Appearance: Alert. Oriented X3. Moderate distress. Diaphoretic. Eyes: Pupils equal, round and reactive to light. EOMI. Sclera nonicteric. ENT: Pharynx normal. Dry mucous membranes. Neck: Normal inspection. Neck supple. CVS: Normal heart rate and rhythm. Pulses normal. Respiratory: No respiratory distress. Breath sounds normal. Abdomen: Soft and nontender. Skin: Skin warm and diaphoretic. Normal skin color. Normal skin turgor. Extremities: No lower extremity edema. 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 Neuro: No motor deficit. No sensory deficit. Cranial nerves 2-12 intact. Course Course Course Narrative: 67-year-old female presents via EMS for hypoglycemia. Noted to have a blood s ugar of 30 at 19:27. Order for D50 amp and D5 normal saline infusion. Labs and urinalysis are pending. Patient was evaluated 2 days ago for complaint of 1 month of bilateral flank pain. CT abdomen pelvis was negative. 19:44 order for 2nd amp. Blood sugar 29. Hypoglycemia most likely due to in sulin overdose less likely to be insulinoma. 19:56 blood sugar 104. Patient alert oriented. Following directions. 21:36 blood sugar 21 order for D50 2 amps, order changed from D5 to D10 at 75 mL/hr. Second IV line started by this FIELD TRAFFIC INVESTIGATOR to the right lateral AC. Heart rate 77, blood pressure 161/52, H&H7.5/24.4 which is lower than prior values. Type and screen and Occult stool ordered. Occult stool obtained by this FIELD TRAFFIC INVESTIGATOR. RN as carton gluing machine operator. Order for glucagon 1 mg IV push. BUN 24, creatinine 2.72 both of which are consistent with prior values. 22:00 blood sugar 229 22:30 BNP 638, will order Lasix 40 mg. Discussion with hospitalist, plan of care is to admit for hypoglycemia. Consultations Consultation #1: [place] Medical Decision Making Differential Diagnosis Differential Diagnosis: Hypoglycemia, UTI, CHF, pneumonia Medical Records Medical records reviewed: Yes I reviewed the patient's medical records. Lab Data Lab results reviewed: Yes I reviewed the patient's lab results. Result diagrams: 03/09/22 19:27 03/09/22 19:27 Labs: Lab Results 03/09/22 03/09/22 03/09/22 Range/Units 18:16 18:34 19:27 WBC 8.2 (4.8-10.8) X10*3/uL RBC 2.92 L (4.20-5.50) X10*6/uL Hgb 7.5 L (12.0-16.0) g/dl Hct 24.4 L (37.0-47.0) % MCV 83.6 (80.0-98.0) fL MCH 25.7 L (27.0-33.0) pg MCHC 30.7 L (31.0-35.0) g/dl RDW 13.6 (11.0-16.0) % Plt Count 252 (160-400) X10*3/uL MPV 9.5 (9.4-12.3) fL Immature Gran % (Auto) 0.4 (0.0-0.4) % Neut % (Auto) 68.6 (45-73) % Lymph % (Auto) 19.5 L (20-40) % Tyrrell % (Auto) 7.8 (2-11) % Eos % (Auto) 3.3 (0-4) % Baso % (Auto) 0.4 (0-2) % Lymph # (Auto) 1.6 (1.2-4.9) X10*3/uL Tyrrell # (Auto) 0.6 (0.1-1.2) X10*3/uL Eos # (Auto) 0.3 (0.0-0.4) X10*3/uL Baso # (Auto) 0.0 (0.0-0.2) X10*3/uL Abs Immat Gran (auto) 0.03 (0.00-0.03) X10*3/uL Absolute Neuts (auto) 5.7 (2.0-8.3) x10*3/uL Absolute Nucleated RBC 0.000 (0.0-0.012) X10*3/uL Nucleated RBC % (auto) 0.0 (0.0-0.2) /100WBC Sodium (135-145) mmol/L Potassium (3.3-5.1) mmol/L Chloride (96-108) mmol/L Carbon Dioxide (22-29) mmol/L Anion Gap (12-20) BUN (9-16) mg/dL Creatinine (0.5-1.4) mg/dL Estim Creat Clear Calc Estimated GFR POC Glucose 30 L* 117 H (60-115) mg/dL Random Glucose (60-115) mg/dL Calcium (8.4-10.2) mg/dL Total Bilirubin (0.0-1.0) mg/dL Direct Bilirubin (0.0-0.5) mg/dL AST (5-31) U/L ALT (0-31) U/L Alkaline Phosphatase (39-117) U/L B-Natriuretic Peptide (<100) pg/mL Total Protein (6.5-8.0) g/dL Albumin (3.5-5.0) g/dL Lipase (8-78) U/L Procalcitonin ng/mL Urine Color Urine Appearance Urine pH (5.0-8.0) Ur Specific [place] (1.005-1.025) Urine Protein (NEG-TRACE) MG/DL Urine Glucose (UA) (NEG) MG/DL Urine Ketones (NEG) MG/DL Urine Blood (NEG) Urine Nitrite (NEG) Ur Leukocyte Esterase (NEG) Urine RBC (0) /HPF Urine WBC (0-4) /HPF Ur Squamous Epith Cells /LPF Urine Bacteria /LPF Stool Occult Blood (NEGATIVE) Blood Type Antibody Screen 03/09/22 03/09/22 03/09/22 Range/Units 19:27 19:27 19:27 WBC (4.8-10.8) X10*3/uL RBC (4.20-5.50) X10*6/uL Hgb (12.0-16.0) g/dl Hct (37.0-47.0) % MCV (80.0-98.0) fL MCH (27.0-33.0) pg MCHC (31.0-35.0) g/dl RDW (11.0-16.0) % Plt Count (160-400) X10*3/uL MPV (9.4-12.3) fL Immature Gran % (Auto) (0.0-0.4) % Neut % (Auto) (45-73) % Lymph % (Auto) (20-40) % Tyrrell % (Auto) (2-11) % Eos % (Auto) (0-4) % Baso % (Auto) (0-2) % Lymph # (Auto) (1.2-4.9) X10*3/uL Tyrrell # (Auto) (0.1-1.2) X10*3/uL Eos # (Auto) (0.0-0.4) X10*3/uL Baso # (Auto) (0.0-0.2) X10*3/uL Abs Immat Gran (auto) (0.00-0.03) X10*3/uL Absolute Neuts (auto) (2.0-8.3) x10*3/uL Absolute Nucleated RBC (0.0-0.012) X10*3/uL Nucleated RBC % (auto) (0.0-0.2) /100WBC Sodium 144 (135-145) mmol/L Potassium 4.1 (3.3-5.1) mmol/L Chloride 109 H (96-108) mmol/L Carbon Dioxide 26 (22-29) mmol/L Anion Gap 13 (12-20) BUN 24 H (9-16) mg/dL Creatinine 2.72 H (0.5-1.4) mg/dL Estim Creat Clear Calc 17.3 Estimated GFR 17 POC Glucose (60-115) mg/dL Random Glucose 39 L* (60-115) mg/dL Calcium 8.0 L (8.4-10.2) mg/dL Total Bilirubin < 0.2 (0.0-1.0) mg/dL Direct Bilirubin < 0.2 (0.0-0.5) mg/dL AST 18 (5-31) U/L ALT 12 (0-31) U/L Alkaline Phosphatase 142 H (39-117) U/L B-Natriuretic Peptide 638 H (<100) pg/mL Total Protein 6.6 (6.5-8.0) g/dL Albumin 3.1 L (3.5-5.0) g/dL Lipase 6 L (8-78) U/L Procalcitonin 0.10 ng/mL Urine Color Urine Appearance Urine pH (5.0-8.0) Ur Specific [place] (1.005-1.025) Urine Protein (NEG-TRACE) MG/DL Urine Glucose (UA) (NEG) MG/DL Urine Ketones (NEG) MG/DL Urine Blood (NEG) Urine Nitrite (NEG) Ur Leukocyte Esterase (NEG) Urine RBC (0) /HPF Urine WBC (0-4) /HPF Ur Squamous Epith Cells /LPF Urine Bacteria /LPF Stool Occult Blood (NEGATIVE) Blood Type Antibody Screen 03/09/22 03/09/22 03/09/22 Range/Units 19:33 19:35 19:56 WBC (4.8-10.8) X10*3/uL RBC (4.20-5.50) X10*6/uL Hgb (12.0-16.0) g/dl Hct (37.0-47.0) % MCV (80.0-98.0) fL MCH (27.0-33.0) pg MCHC (31.0-35.0) g/dl RDW (11.0-16.0) % Plt Count (160-400) X10*3/uL MPV (9.4-12.3) fL Immature Gran % (Auto) (0.0-0.4) % Neut % (Auto) (45-73) % Lymph % (Auto) (20-40) % Tyrrell % (Auto) (2-11) % Eos % (Auto) (0-4) % Baso % (Auto) (0-2) % Lymph # (Auto) (1.2-4.9) X10*3/uL Tyrrell # (Auto) (0.1-1.2) X10*3/uL Eos # (Auto) (0.0-0.4) X10*3/uL Baso # (Auto) (0.0-0.2) X10*3/uL Abs Immat Gran (auto) (0.00-0.03) X10*3/uL Absolute Neuts (auto) (2.0-8.3) x10*3/uL Absolute Nucleated RBC (0.0-0.012) X10*3/uL Nucleated RBC % (auto) (0.0-0.2) /100WBC Sodium (135-145) mmol/L Potassium (3.3-5.1) mmol/L Chloride (96-108) mmol/L Carbon Dioxide (22-29) mmol/L Anion Gap (12-20) BUN (9-16) mg/dL Creatinine (0.5-1.4) mg/dL Estim Creat Clear Calc Estimated GFR POC Glucose 29 L* 104 (60-115) mg/dL Random Glucose (60-115) mg/dL Calcium (8.4-10.2) mg/dL Total Bilirubin (0.0-1.0) mg/dL Direct Bilirubin (0.0-0.5) mg/dL AST (5-31) U/L ALT (0-31) U/L Alkaline Phosphatase (39-117) U/L B-Natriuretic Peptide (<100) pg/mL Total Protein (6.5-8.0) g/dL Albumin (3.5-5.0) g/dL Lipase (8-78) U/L Procalcitonin ng/mL Urine Color YELLOW Urine Appearance CLEAR Urine pH 6.0 (5.0-8.0) Ur Specific [place] 1.025 (1.005-1.025) Urine Protein 2+ H (NEG-TRACE) MG/DL Urine Glucose (UA) NEG (NEG) MG/DL Urine Ketones NEG (NEG) MG/DL Urine Blood 1+ H (NEG) Urine Nitrite NEG (NEG) Ur Leukocyte Esterase NEG (NEG) Urine RBC 0 (0) /HPF Urine WBC 1-4 (0-4) /HPF Ur Squamous Epith Cells 2+ /LPF Urine Bacteria 4+ /LPF Stool Occult Blood (NEGATIVE) Blood Type Antibody Screen 03/09/22 03/09/22 03/09/22 Range/Units 21:36 21:58 22:03 WBC (4.8-10.8) X10*3/uL RBC (4.20-5.50) X10*6/uL Hgb (12.0-16.0) g/dl Hct (37.0-47.0) % MCV (80.0-98.0) fL MCH (27.0-33.0) pg MCHC (31.0-35.0) g/dl RDW (11.0-16.0) % Plt Count (160-400) X10*3/uL MPV (9.4-12.3) fL Immature Gran % (Auto) (0.0-0.4) % Neut % (Auto) (45-73) % Lymph % (Auto) (20-40) % Tyrrell % (Auto) (2-11) % Eos % (Auto) (0-4) % Baso % (Auto) (0-2) % Lymph # (Auto) (1.2-4.9) X10*3/uL [place] # (Auto) (0.1-1.2) X10*3/uL Eos # (Auto) (0.0-0.4) X10*3/uL Baso # (Auto) (0.0-0.2) X10*3/uL Abs Immat Gran (auto) (0.00-0.03) X10*3/uL Absolute Neuts (auto) (2.0-8.3) x10*3/uL Absolute Nucleated RBC (0.0-0.012) X10*3/uL Nucleated RBC % (auto) (0.0-0.2) /100WBC Sodium (135-145) mmol/L Potassium (3.3-5.1) mmol/L Chloride (96-108) mmol/L Carbon Dioxide (22-29) mmol/L Anion Gap (12-20) BUN (9-16) mg/dL Creatinine (0.5-1.4) mg/dL Estim Creat Clear Calc Estimated GFR POC Glucose 21 L* (60-115) mg/dL Random Glucose (60-115) mg/dL Calcium (8.4-10.2) mg/dL Total Bilirubin (0.0-1.0) mg/dL Direct Bilirubin (0.0-0.5) mg/dL AST (5-31) U/L ALT (0-31) U/L Alkaline Phosphatase (39-117) U/L B-Natriuretic Peptide (<100) pg/mL Total Protein (6.5-8.0) g/dL Albumin (3.5-5.0) g/dL Lipase (8-78) U/L Procalcitonin ng/mL Urine Color Urine Appearance Urine pH (5.0-8.0) Ur Specific [place] (1.005-1.025) Urine Protein (NEG-TRACE) MG/DL Urine Glucose (UA) (NEG) MG/DL Urine Ketones (NEG) MG/DL Urine Blood (NEG) Urine Nitrite (NEG) Ur Leukocyte Esterase (NEG) Urine RBC (0) /HPF Urine WBC (0-4) /HPF Ur Squamous Epith Cells /LPF Urine Bacteria /LPF Stool Occult Blood NEGATIVE (NEGATIVE) Blood Type B Positive Antibody Screen NEGATIVE 03/09/22 03/09/22 03/09/22 Range/Units 22:06 22:39 23:01 WBC (4.8-10.8) X10*3/uL RBC (4.20-5.50) X10*6/uL Hgb (12.0-16.0) g/dl Hct (37.0-47.0) % MCV (80.0-98.0) fL MCH (27.0-33.0) pg MCHC (31.0-35.0) g/dl RDW (11.0-16.0) % Plt Count (160-400) X10*3/uL MPV (9.4-12.3) fL Immature Gran % (Auto) (0.0-0.4) % Neut % (Auto) (45-73) % Lymph % (Auto) (20-40) % Tyrrell % (Auto) (2-11) % Eos % (Auto) (0-4) % Baso % (Auto) (0-2) % Lymph # (Auto) (1.2-4.9) X10*3/uL [place] # (Auto) (0.1-1.2) X10*3/uL Eos # (Auto) (0.0-0.4) X10*3/uL Baso # (Auto) (0.0-0.2) X10*3/uL Abs Immat Gran (auto) (0.00-0.03) X10*3/uL Absolute Neuts (auto) (2.0-8.3) x10*3/uL Absolute Nucleated RBC (0.0-0.012) X10*3/uL Nucleated RBC % (auto) (0.0-0.2) /100WBC Sodium (135-145) mmol/L Potassium (3.3-5.1) mmol/L Chloride (96-108) mmol/L Carbon Dioxide (22-29) mmol/L Anion Gap (12-20) BUN (9-16) mg/dL Creatinine (0.5-1.4) mg/dL Estim Creat Clear Calc Estimated GFR POC Glucose 229 H 196 H 185 H (60-115) mg/dL Random Glucose (60-115) mg/dL Calcium (8.4-10.2) mg/dL Total Bilirubin (0.0-1.0) mg/dL Direct Bilirubin (0.0-0.5) mg/dL AST (5-31) U/L ALT (0-31) U/L Alkaline Phosphatase (39-117) U/L B-Natriuretic Peptide (<100) pg/mL Total Protein (6.5-8.0) g/dL Albumin (3.5-5.0) g/dL Lipase (8-78) U/L Procalcitonin ng/mL Urine Color Urine Appearance Urine pH (5.0-8.0) Ur Specific [place] (1.005-1.025) Urine Protein (NEG-TRACE) MG/DL Urine Glucose (UA) (NEG) MG/DL Urine Ketones (NEG) MG/DL Urine Blood (NEG) Urine Nitrite (NEG) Ur Leukocyte Esterase (NEG) Urine RBC (0) /HPF Urine WBC (0-4) /HPF Ur Squamous Epith Cells /LPF Urine Bacteria /LPF Stool Occult Blood (NEGATIVE) Blood Type Antibody Screen 03/09/22 Range/Units 23:34 WBC (4.8-10.8) X10*3/uL RBC (4.20-5.50) X10*6/uL Hgb (12.0-16.0) g/dl Hct (37.0-47.0) % MCV (80.0-98.0) fL MCH (27.0-33.0) pg MCHC (31.0-35.0) g/dl RDW (11.0-16.0) % Plt Count (160-400) X10*3/uL MPV (9.4-12.3) fL Immature Gran % (Auto) (0.0-0.4) % Neut % (Auto) (45-73) % Lymph % (Auto) (20-40) % Tyrrell % (Auto) (2-11) % Eos % (Auto) (0-4) % Baso % (Auto) (0-2) % Lymph # (Auto) (1.2-4.9) X10*3/uL [place] # (Auto) (0.1-1.2) X10*3/uL Eos # (Auto) (0.0-0.4) X10*3/uL Baso # (Auto) (0.0-0.2) X10*3/uL Abs Immat Gran (auto) (0.00-0.03) X10*3/uL Absolute Neuts (auto) (2.0-8.3) x10*3/uL Absolute Nucleated RBC (0.0-0.012) X10*3/uL Nucleated RBC % (auto) (0.0-0.2) /100WBC Sodium (135-145) mmol/L Potassium (3.3-5.1) mmol/L Chloride (96-108) mmol/L Carbon Dioxide (22-29) mmol/L Anion Gap (12-20) BUN (9-16) mg/dL Creatinine (0.5-1.4) mg/dL Estim Creat Clear Calc Estimated GFR POC Glucose 219 H (60-115) mg/dL Random Glucose (60-115) mg/dL Calcium (8.4-10.2) mg/dL Total Bilirubin (0.0-1.0) mg/dL Direct Bilirubin (0.0-0.5) mg/dL AST (5-31) U/L ALT (0-31) U/L Alkaline Phosphatase (39-117) U/L B-Natriuretic Peptide (<100) pg/mL Total Protein (6.5-8.0) g/dL Albumin (3.5-5.0) g/dL Lipase (8-78) U/L Procalcitonin ng/mL Urine Color Urine Appearance Urine pH (5.0-8.0) Ur Specific [place] (1.005-1.025) Urine Protein (NEG-TRACE) MG/DL Urine Glucose (UA) (NEG) MG/DL Urine Ketones (NEG) MG/DL Urine Blood (NEG) Urine Nitrite (NEG) Ur Leukocyte Esterase (NEG) Urine RBC (0) /HPF Urine WBC (0-4) /HPF Ur Squamous Epith Cells /LPF Urine Bacteria /LPF Stool Occult Blood (NEGATIVE) Blood Type Antibody Screen Imaging Data Chest x-ray: Attestation: I personally reviewed and interpreted this imaging study as follows: Radiologist's impression: EXAMINATION: XR CHEST CLINICAL INFORMATION: Cough COMPARISON: Chest radiograph 01/31/2022, CT abdomen pelvis 03/07/2020 TECHNIQUE: Frontal view of the chest was obtained. FINDINGS: The heart is mildly enlarged. Central vasculature remains prominent. Some scattered patchy density seen most prominent in the lower lobes better appreciated on CT scan from 2 days ago. Subpulmonic pleural effusions are present as well. XR/XR chest 1V IMPRESSION: Cardiomegaly and small bilateral effusions with pulmonary vascular congestion. Scattered opacities may be related to CHF or possibly superimposed infiltrates ? Critical Care Time Critical Care Time Critical Care Time: Yes Total Critical Care Time: 75 Attestation: I have personally provided critical care time exclusive of time spent on separately billable procedures. Time includes review of laboratory data, radiology results, discussion with consultants, and monitoring for potential decompensation. Interventions were performed as documented. Discharge Plan Discharge Clinical Impression: Hypoglycemia Patient Disposition: Admitted As Inpatient
[2022-03-09] MEDS: Dextrose 50 % 25 GM/50 ML SYRINGE IVPUSH ×3 (18:32→21:58)
[2022-03-09 18:38] LABS: Glucose, Whole Blood 30 mg/dL (60-115)
[2022-03-09 18:38] LABS: Glucose, Whole Blood 117 mg/dL (60-115)
--- NOTE | 2022-03-09 19:03 | PC.NURSE ---
report given to sb nance
[2022-03-09 19:30] LABS: MANUAL DIFF FLAG NO
[2022-03-09 19:32] LABS: Basophils Percent Auto 0.4 % (0-2); Eosinophils Absolute Auto 0.3 X10*3/uL (0.0-0.4); Eosinophils Percent Auto 3.3 % (0-4); Hematocrit 24.4 % (37.0-47.0); Hemoglobin 7.5 g/dl (12.0-16.0); Imm Gran Abs Auto 0.03 X10*3/uL (0.00-0.03); Imm Gran Pct Auto 0.4 % (0.0-0.4); Lymphocytes Absolute Auto 1.6 X10*3/uL (1.2-4.9); Lymphocytes Percent Auto 19.5 % (20-40); Mean Corpuscular HGB Conc 30.7 g/dl (31.0-35.0); Mean Corpuscular Hemoglobin 25.7 pg (27.0-33.0); Mean Corpuscular Volume 83.6 fL (80.0-98.0); Mean Platelet Volume 9.5 fL (9.4-12.3); Monocytes Absolute Auto 0.6 X10*3/uL (0.1-1.2); Monocytes Percent Auto 7.8 % (2-11); Neutrophils Absolute Auto 5.7 x10*3/uL (2.0-8.3); Neutrophils Percent Auto 68.6 % (45-73); Platelet Count 252 X10*3/uL (160-400); Red Blood Count 2.92 X10*6/uL (4.20-5.50); Red Cell Distribution Width 13.6 % (11.0-16.0); White Blood Count 8.2 X10*3/uL (4.8-10.8)
[2022-03-09 19:49] LABS: Appearance Urine CLEAR; Color Urine YELLOW; Glucose Urine UA NEG (NEG); Leukocyte Esterase Urine NEG (NEG); Nitrite Urine NEG (NEG); Specific Gravity - Urine 1.025 (1.005-1.025); UACC Culture Trigger NO; Urine Blood 1+ (NEG); Urine Ketones NEG (NEG); Urine Protein 2+ MG/DL (NEG-TRACE)
[2022-03-09 19:57] LABS: Bacteria Urine 4+ /LPF; RBC Urine 0 /HPF (0); Squamous Epithelial Cell Urine 2+ /LPF; UACC CULT YES
[2022-03-09 20:01] LABS: B Type Natriuretic Peptide 638 pg/mL (<100)
[2022-03-09 20:02] LABS: Alanine Aminotransferase 12 U/L (0-31); Albumin Level 3.1 g/dL (3.5-5.0); Alkaline Phosphatase 142 U/L (39-117); Anion Gap 13 (12-20); Aspartate Amino Transferase 18 U/L (5-31); Bilirubin Direct < 0.2 mg/dL (0.0-0.5); Bilirubin Total < 0.2 mg/dL (0.0-1.0); Blood Urea Nitrogen 24 mg/dL (9-16); Carbon Dioxide 26 mmol/L (22-29); Chloride 109 mmol/L (96-108); Creatinine Clr Calc Pharmacy 17.3; Estimated Glomerular Filt Rate 17; Glucose Random 39 mg/dL (60-115); Lipase 6 U/L (8-78); Potassium 4.1 mmol/L (3.3-5.1); Sodium 144 mmol/L (135-145); Total Protein 6.6 g/dL (6.5-8.0)
[2022-03-09] MEDS: Dextrose 5 % and 0.9 % NaCl 1,000 ML 50 ML IVCONT (20:02)
[2022-03-09 20:27] LABS: Glucose, Whole Blood 29 mg/dL (60-115)
--- NOTE | 2022-03-09 20:51 | PC.NURSE ---
pt note secondary to to pt care, pt BS 29, pt given amp of dextrose, aware.
[2022-03-09 20:57] LABS: Glucose, Whole Blood 104 mg/dL (60-115)
[2022-03-09 21:39] VITALS: BP 161/52; PULSE 84; RESP 21; TEMP 36.9; O2SAT 92
[2022-03-09 22:02] LABS: OBS Int Ctl Valid YES; OBS1 NEGATIVE (NEGATIVE)
[2022-03-09] MEDS: Dextrose 10 % 1,000 ML 75 ML IVCONT (22:03)
[2022-03-09] MEDS: Furosemide 40 MG/4 ML VIAL IVPUSH (22:39)
[2022-03-09 22:42] VITALS: BP 153/55; PULSE 79; RESP 16; TEMP 36.8; O2SAT 94
[2022-03-09 22:46] LABS: Glucose, Whole Blood 229 mg/dL (60-115)
[2022-03-09 22:46] LABS: Glucose, Whole Blood 21 mg/dL (60-115)
[2022-03-09 22:46] LABS: Glucose, Whole Blood 196 mg/dL (60-115)
[2022-03-09 23:05] LABS: Glucose, Whole Blood 185 mg/dL (60-115)
[2022-03-09 23:13] VITALS: BP 165/73; PULSE 74; RESP 16; O2SAT 94
[2022-03-09 23:38] LABS: Glucose, Whole Blood 219 mg/dL (60-115)
--- NOTE | 2022-03-09 23:47 | PM.IMHP ---
History of Present Illness Date of Service: 03/09/22 Chief Complaint: Low blood sugar 67-year-old female with a past medical history of hypertension, hyperlipidemia, diabetes, CKD, irritable bowel syndrome, GERD, gastroparesis, CHF, anemia, dysphagia presented to the hospital today with a chief complaint of diaphoresis/dizziness; noted to have low blood sugar. Subsequently came to the ER for further evaluation. Patient reports that this afternoon she felt diaphoretic and dizzy; when checked her sugar it was low; EMS was called in who noted her blood sugar in 40; given a dose of dextrose and water to the ER for further evaluation. Patient reports that she has a history of gastroparesis/irritable bowel syndrome; has been not eating well for many days; also mentions she has no appetite. Patient reports that she takes 64 units of Lantus daily. Which she has been compliant and last took was on the morning of 03/09/2022. Denies taking any insulin sliding scale yesterday. Denies any fever chills cough. Denies any urinary symptoms. Denies any chest pain or palpitations. Review of all other systems is negative except mentioned above ER course: Per ER team patient noted to have blood sugar in 30s on presentation; given 2 ampules of dextrose but blood sugar dropped to 21; subsequently placed on D10 infusion; also given glucagon. Hemoglobin noted to be 7.5. Stool guaiac was negative. Patient asymptomatic. Admitted to the hospital for further management. [facility] Medical History Acute on chronic renal failure Acute worsening of stage 4 chronic kidney disease Anemia Blister of finger without infection Cholecystectomy planned Chronic heart failure with preserved ejection fraction (HFpEF) CKD (chronic kidney disease) CKD (chronic kidney disease) stage 3, GFR 30-59 ml/min CKD (chronic kidney disease) stage 4, GFR 15-29 ml/min CKD (chronic kidney disease), stage IV Congestive heart failure Diabetes Diabetes mellitus Elevated d-dimer Essential hypertension Gastroparesis GERD (gastroesophageal reflux disease) Hand pain Hernia HLD (hyperlipidemia) HTN (hypertension) Hypomagnesemia Irritable bowel syndrome with diarrhea Lightheadedness Low blood pressure Non-ST elevated myocardial infarction Nonischemic cardiomyopathy Other and unspecified hyperlipidemia Pharyngoesophageal dysphagia Type 2 diabetes mellitus with unspecified complications Family History Father Lung cancer Mother Diabetes HTN (hypertension) Heart disease Sister Diabetes Heart disease Brother Heart disease Son Diabetes Daughter Diabetes Surgical History H/O: hysterectomy History of esophagogastroduodenoscopy (EGD) Hx of colonoscopy Hx of eye surgery Social History Household Members: Unknown / Unable to assess Household Members Other:: SNF Housing: Assisted Living Facility Do you presently have visiting nurse or other home services: No Unable to assess alcohol history related to: Unknown Alcohol intake: never Patient Tobacco Use Status: Never used Tobacco Second Hand Smoke Exposure: No Currently Displaying Signs/Symptoms of Drug Intoxication Withdrawal: No Advance Directives: Yes Advance Directives on File: Yes Advance Directives Date on File: 02/02/22 Do you have thoughts of harming others: None Do you have a plan to hurt others: No Plan Recently lost weight without trying: Unsure Eating poorly because of decreased appetite: No Nutrition Risks: No Nutritional Risk Patient : No : No Poor oral hygiene: No service: No Current occupational status: disabled Meds Allergies Allergy/AdvReac Type Severity Reaction Status Date / Time latex [LATEX] Allergy Intermediate ITCHY Verified 06/29/21 13:08 Active Medications: Current Medications Acetaminophen (Acetaminophen 325 Mg Tablet) 650 mg PO Q6H PRN PRN Reason: Pain, Mild (Pain Scale 1-3) Enoxaparin Sodium (Enoxaparin Sodium 40 Mg/0.4 Ml Syringe) 40 mg SUBCUT Q24H MATTY Dextrose/Sodium Chloride (D5ns) 1,000 mls @ 50 mls/hr IVCONT .Q20H MATTY Last Infusion: 03/09/22 22:15 Dose: 0 mls/hr Dextrose (D10) 1,000 mls @ 75 mls/hr IVCONT .[id number] MATTY Last Admin: 03/09/22 22:03 Dose: 75 mls/hr Dextrose/Sodium Chloride (D5ns) 1,000 mls @ 50 mls/hr IVCONT .Q20H MATTY Dextrose (D10) 1,000 mls @ 50 mls/hr IVCONT .Q20H MATTY Melatonin (Melatonin 3 Mg Tablet) 6 mg PO BEDTIME PRN PRN Reason: Insomnia Senna (Sennosides 8.6 Mg Tablet) 17.2 mg PO BEDTIME PRN PRN Reason: Constipation Sodium Chloride (0.9 % Sodium Chloride Flush 3 Ml Syringe) 3 ml IVFLUSH QSHIFT [facility] Home Medications Medication Instructions Recorded Confirmed Last Taken Type aspirin 81 mg tablet,delayed 81 mg PO BEDTIME 06/20/21 05/05/22 01/30/22 History release atorvastatin 80 mg tablet 80 mg PO BEDTIME 06/20/21 05/05/22 01/30/22 History calcium carbonate 600 mg-vitamin 1 tab PO BID 06/20/21 05/05/22 01/30/22 History D3 10 mcg (400 unit) tablet clopidogrel 75 mg tablet 75 mg PO DAILY 06/20/21 05/05/22 01/30/22 History magnesium oxide 400 mg (241.3 mg 400 mg PO BID 06/20/21 05/05/22 01/30/22 History magnesium) tablet sertraline 50 mg tablet 50 mg PO DAILY 06/20/21 05/05/22 01/30/22 History trazodone 50 mg tablet 50 mg PO BEDTIME 06/20/21 05/05/22 01/30/22 History insulin glargine 100 unit/mL (3 18 unit subcut DAILY 03/25/22 05/05/22 Unknown History mL) subcutaneous pen (Lantus Solostar U-100 Insulin) acetaminophen 500 mg tablet 2 tab PO QID PRN fever 05/05/22 05/05/22 Unknown History insulin lispro 100 unit/mL 1 sliding scale dose subcut 05/05/22 05/05/22 Unknown History subcutaneous solution (Humalog USEASDIRECTD U-100 Insulin) ipratropium 0.5 mg-albuterol 3 mg 3 ml inhalation Q4H PRN Wheezing 05/05/22 05/05/22 Unknown History (2.5 mg base)/3 mL nebulization soln Physical Exam Vital Signs and Narrative: Vital Signs: Last Vital Signs Temp 98.3 F 03/09/22 22:42 Pulse 74 03/09/22 23:13 Resp 16 03/09/22 23:13 BP 165/73 H 03/09/22 23:13 Pulse Ox 94 03/09/22 23:13 O2 Del Method 03/09/22 23:13 O2 Flow Rate 2 03/09/22 21:39 BMI result Body Mass Index 35.5 Gen: Appears be in no acute distress HEENT: NCAT, Moist mucosa. Pulmonary: Vesicular breath sounds, fair air entry CVS: Normal S1-S2 Abdomen: BS+, Soft, Nontender Extremities: Warm well perfused; left lower extremity status post amputation. Neuro: Alert and awake. Results Labs CBC and Chem 7: 03/18/22 06:16 03/18/22 06:16 Labs: Laboratory Results - last 24 hr 03/09/22 03/09/22 03/09/22 18:16 18:34 19:27 MCV 83.6 MCH 25.7 L MCHC 30.7 L RDW 13.6 Plt Count 252 MPV 9.5 Immature Gran % (Auto) 0.4 Neut % (Auto) 68.6 Lymph % (Auto) 19.5 L [place] % (Auto) 7.8 Eos % (Auto) 3.3 Baso % (Auto) 0.4 Lymph # (Auto) 1.6 [place] # (Auto) 0.6 Eos # (Auto) 0.3 Baso # (Auto) 0.0 Abs Immat Gran (auto) 0.03 Absolute Neuts (auto) 5.7 Absolute Nucleated RBC 0.000 Nucleated RBC % (auto) 0.0 Anion Gap Estim Creat Clear Calc Estimated GFR POC Glucose 30 L* 117 H Random Glucose Calcium Total Bilirubin Direct Bilirubin AST ALT Alkaline Phosphatase B-Natriuretic Peptide Total Protein Albumin Lipase Procalcitonin Urine Color Urine Appearance Urine pH Ur Specific [place] Urine Protein Urine Glucose (UA) Urine Ketones Urine Blood Urine Nitrite Ur Leukocyte Esterase Urine RBC Urine WBC Ur Squamous Epith Cells Urine Bacteria Stool Occult Blood Blood Type Antibody Screen 03/09/22 03/09/22 03/09/22 19:27 19:27 19:27 MCV MCH MCHC RDW Plt Count MPV Immature Gran % (Auto) Neut % (Auto) Lymph % (Auto) [place] % (Auto) Eos % (Auto) Baso % (Auto) Lymph # (Auto) [place] # (Auto) Eos # (Auto) Baso # (Auto) Abs Immat Gran (auto) Absolute Neuts (auto) Absolute Nucleated RBC Nucleated RBC % (auto) Anion Gap 13 Estim Creat Clear Calc 17.3 Estimated GFR 17 POC Glucose Random Glucose 39 L* Calcium 8.0 L Total Bilirubin < 0.2 Direct Bilirubin < 0.2 AST 18 ALT 12 Alkaline Phosphatase 142 H B-Natriuretic Peptide 638 H Total Protein 6.6 Albumin 3.1 L Lipase 6 L Procalcitonin 0.10 Urine Color Urine Appearance Urine pH Ur Specific [place] Urine Protein Urine Glucose (UA) Urine Ketones Urine Blood Urine Nitrite Ur Leukocyte Esterase Urine RBC Urine WBC Ur Squamous Epith Cells Urine Bacteria Stool Occult Blood Blood Type Antibody Screen 03/09/22 03/09/22 03/09/22 19:33 19:35 19:56 MCV MCH MCHC RDW Plt Count MPV Immature Gran % (Auto) Neut % (Auto) Lymph % (Auto) [place] % (Auto) Eos % (Auto) Baso % (Auto) Lymph # (Auto) [place] # (Auto) Eos # (Auto) Baso # (Auto) Abs Immat Gran (auto) Absolute Neuts (auto) Absolute Nucleated RBC Nucleated RBC % (auto) Anion Gap Estim Creat Clear Calc Estimated GFR POC Glucose 29 L* 104 Random Glucose Calcium Total Bilirubin Direct Bilirubin AST ALT Alkaline Phosphatase B-Natriuretic Peptide Total Protein Albumin Lipase Procalcitonin Urine Color YELLOW Urine Appearance CLEAR Urine pH 6.0 Ur Specific [place] 1.025 Urine Protein 2+ H Urine Glucose (UA) NEG Urine Ketones NEG Urine Blood 1+ H Urine Nitrite NEG Ur Leukocyte Esterase NEG Urine RBC 0 Urine WBC 1-4 Ur Squamous Epith Cells 2+ Urine Bacteria 4+ Stool Occult Blood Blood Type Antibody Screen 03/09/22 03/09/22 03/09/22 21:36 21:58 22:03 MCV MCH MCHC RDW Plt Count MPV Immature Gran % (Auto) Neut % (Auto) Lymph % (Auto) [place] % (Auto) Eos % (Auto) Baso % (Auto) Lymph # (Auto) [place] # (Auto) Eos # (Auto) Baso # (Auto) Abs Immat Gran (auto) Absolute Neuts (auto) Absolute Nucleated RBC Nucleated RBC % (auto) Anion Gap Estim Creat Clear Calc Estimated GFR POC Glucose 21 L* Random Glucose Calcium Total Bilirubin Direct Bilirubin AST ALT Alkaline Phosphatase B-Natriuretic Peptide Total Protein Albumin Lipase Procalcitonin Urine Color Urine Appearance Urine pH Ur Specific [place] Urine Protein Urine Glucose (UA) Urine Ketones Urine Blood Urine Nitrite Ur Leukocyte Esterase Urine RBC Urine WBC Ur Squamous Epith Cells Urine Bacteria Stool Occult Blood NEGATIVE Blood Type B Positive Antibody Screen NEGATIVE 03/09/22 03/09/22 03/09/22 22:06 22:39 23:01 MCV MCH MCHC RDW Plt Count MPV Immature Gran % (Auto) Neut % (Auto) Lymph % (Auto) [place] % (Auto) Eos % (Auto) Baso % (Auto) Lymph # (Auto) [place] # (Auto) Eos # (Auto) Baso # (Auto) Abs Immat Gran (auto) Absolute Neuts (auto) Absolute Nucleated RBC Nucleated RBC % (auto) Anion Gap Estim Creat Clear Calc Estimated GFR POC Glucose 229 H 196 H 185 H Random Glucose Calcium Total Bilirubin Direct Bilirubin AST ALT Alkaline Phosphatase B-Natriuretic Peptide Total Protein Albumin Lipase Procalcitonin Urine Color Urine Appearance Urine pH Ur Specific [place] Urine Protein Urine Glucose (UA) Urine Ketones Urine Blood Urine Nitrite Ur Leukocyte Esterase Urine RBC Urine WBC Ur Squamous Epith Cells Urine Bacteria Stool Occult Blood Blood Type Antibody Screen 03/09/22 23:34 MCV MCH MCHC RDW Plt Count MPV Immature Gran % (Auto) Neut % (Auto) Lymph % (Auto) [place] % (Auto) Eos % (Auto) Baso % (Auto) Lymph # (Auto) [place] # (Auto) Eos # (Auto) Baso # (Auto) Abs Immat Gran (auto) Absolute Neuts (auto) Absolute Nucleated RBC Nucleated RBC % (auto) Anion Gap Estim Creat Clear Calc Estimated GFR POC Glucose 219 H Random Glucose Calcium Total Bilirubin Direct Bilirubin AST ALT Alkaline Phosphatase B-Natriuretic Peptide Total Protein Albumin Lipase Procalcitonin Urine Color Urine Appearance Urine pH Ur Specific [place] Urine Protein Urine Glucose (UA) Urine Ketones Urine Blood Urine Nitrite Ur Leukocyte Esterase Urine RBC Urine WBC Ur Squamous Epith Cells Urine Bacteria Stool Occult Blood Blood Type Antibody Screen Imaging Radiologist's Impressions: Impressions Chest X-Ray 03/09/22 18:40 IMPRESSION: Cardiomegaly and small bilateral effusions with pulmonary vascular congestion. Scattered opacities may be related to CHF or possibly superimposed infiltrates Assessment and Plan (1) Hypoglycemia: Status: Acute Plan 66-year-old female with a past medical history of hypertension, hyperlipidemia, diabetes, CKD, CHF, anxiety, depression presented to the hospital with a chief complaint of low blood sugar. Noted to have following Hypoglycemia: Likely in the setting of poor oral intake and continue to take Lantus-potentiated by CKD. Patient currently asymptomatic Hypoglycemia improving with [id number] continue; patient also received glucagonx2. Hypoglycemia panel sent Follow-up POC glucose every 2 hours CHF: Patient proBNP elevated. Chest x-ray showed congestion. Patient received Lasix 40 mg IV in the ER. Continue home Lasix. Currently saturating well on room air. Continue home aspirin, statin, carvedilol, hydralazine. Anemia the home: Patient denies any blood in the stool. Stool guaiac was negative. Hemoglobin noted to be 7.5 on presentation. Baseline hemoglobin around 9. Will continue to monitor. History of diabetes: Hold home insulin regimen for now given severe hypoglycemia. Monitor fingerstick glucose. History of CKD: Creatinine at baseline of 2.6-2.7. Continue home sodium bicarbonate. History of depression: Continue home trazodone, sertraline History of hypertension: Continue home amlodipine, hydralazine. DVT prophylaxis: Lovenox Code status: DNR/DNI. Discussed in detail with the patient. Patient wanted to be DNR/DNI. Quality Stroke Does the patient have a stroke diagnosis?: No VTE Prior VTE?: No VTE Risk Level:: Medical - moderate - high VTE Device Contraindication: Treatment Not Indicated VTE Drug Contraindication: N/A - Med Ordered
[2022-03-10] VITALS (9 sets, daily range): BP systolic 124–178; BP diastolic 32–89; PULSE 74–82; RESP 14–20; TEMP 35.7–37.2; O2SAT 90–95
[2022-03-10 00:16] LABS: Glucose, Whole Blood 186 mg/dL (60-115)
[2022-03-10] MEDS: Dextrose 5 % and 0.9 % NaCl 1,000 ML 50 ML IVCONT ×2 (00:17→15:54)
[2022-03-10] MEDS: Dextrose 10 % 1,000 ML 50 ML IVCONT (00:18)
[2022-03-10 00:49] LABS: Glucose, Whole Blood 162 mg/dL (60-115)
[2022-03-10 01:24] LABS: Glucose, Whole Blood 161 mg/dL (60-115)
--- NOTE | 2022-03-10 01:55 | PC.NURSE ---
pharmacist spoke with this RN suggesting we cancel lovenox due to kidney function and order subq heparin instead, aware.
[2022-03-10 01:57] LABS: Glucose, Whole Blood 158 mg/dL (60-115)
[2022-03-10 02:48] LABS: Glucose, Whole Blood 139 mg/dL (60-115)
--- NOTE | 2022-03-10 02:52 | PC.NURSE ---
pt BS continues to trend downward despite being medicated per MAR. aware.
[2022-03-10] MEDS: Hydrocortisone Sod Succ/PF 100 MG VIAL 50 MG IVPUSH (03:25)
[2022-03-10 03:27] LABS: Glucose, Whole Blood 124 mg/dL (60-115)
[2022-03-10] MEDS: Heparin Sodium,Porcine 5,000 UNIT/ML VIAL 5000 UNIT SUBCUT ×3 (03:28→18:30)
--- NOTE | 2022-03-10 03:38 | PC.NURSE ---
pt provided with sandwich, gingerale, and crackers per MD
--- NOTE | 2022-03-10 04:55 | PC.NURSE ---
pt last BS 157 per okay to d/c q30 min POCT BS
--- NOTE | 2022-03-10 04:56 | PC.NURSE ---
pt provided perineal care & linen change.
[2022-03-10 06:57] LABS: MANUAL DIFF FLAG NO
[2022-03-10 07:21] LABS: Basophils Percent Auto 0.3 % (0-2); Eosinophils Absolute Auto 0.2 X10*3/uL (0.0-0.4); Eosinophils Percent Auto 1.6 % (0-4); Hematocrit 26.1 % (37.0-47.0); Imm Gran Abs Auto 0.11 X10*3/uL (0.00-0.03); Imm Gran Pct Auto 0.8 % (0.0-0.4); Lymphocytes Percent Auto 6.8 % (20-40); Mean Corpuscular HGB Conc 30.7 g/dl (31.0-35.0); Mean Corpuscular Hemoglobin 25.4 pg (27.0-33.0); Mean Corpuscular Volume 82.9 fL (80.0-98.0); Mean Platelet Volume 10.6 fL (9.4-12.3); Monocytes Absolute Auto 0.4 X10*3/uL (0.1-1.2); Monocytes Percent Auto 2.6 % (2-11); Neutrophils Absolute Auto 12.4 x10*3/uL (2.0-8.3); Neutrophils Percent Auto 87.9 % (45-73); Platelet Count 294 X10*3/uL (160-400); Red Blood Count 3.15 X10*6/uL (4.20-5.50); Red Cell Distribution Width 13.7 % (11.0-16.0); White Blood Count 14.1 X10*3/uL (4.8-10.8)
[2022-03-10 07:31] LABS: Anion Gap 13 (12-20); Blood Urea Nitrogen 25 mg/dL (9-16); Carbon Dioxide 23 mmol/L (22-29); Chloride 108 mmol/L (96-108); Creatinine Clr Calc Pharmacy 17.4; Estimated Glomerular Filt Rate 18; Glucose Random 151 mg/dL (60-115); Potassium 4.4 mmol/L (3.3-5.1); Sodium 140 mmol/L (135-145)
[2022-03-10 08:12] LABS: Glucose, Whole Blood 135 mg/dL (60-115)
[2022-03-10 08:12] LABS: Glucose, Whole Blood 135 mg/dL (60-115)
[2022-03-10 08:13] LABS: Glucose, Whole Blood 157 mg/dL (60-115)
[2022-03-10 08:13] LABS: Glucose, Whole Blood 129 mg/dL (60-115)
[2022-03-10 09:02] LABS: Glucose, Whole Blood 130 mg/dL (60-115)
--- NOTE | 2022-03-10 10:38 | PHA.MEDREC ---
MED REC COMPLETE, NO ISSUES Pharmacy Consult ? Medication Reconciliation Pharmacy has completed the medication reconciliation.
[2022-03-10 10:57] LABS: Glucose, Whole Blood 152 mg/dL (60-115)
[2022-03-10 11:25] LABS: Glucose, Whole Blood 158 mg/dL (60-115)
[2022-03-10 11:28] LABS: COVID-19 Test Negative (Negative); IDNOW Serial# 16C4AD1C
--- NOTE | 2022-03-10 11:30 | PC.NURSE ---
pt's daughter calls for this rn, states that her mother is not acting herself, pt seems confused is saying that there is a handsome man sitting in a chair, there is no man in this pt room at this time, all neuro's intact no visible facial droop,hand grasp strong and equal, poc 158. dr guardado contacted
--- NOTE | 2022-03-10 12:35 | MHC.CM.PN ---
Addendum entered by Mireya Guzmán 03/10/22 12:38: HCP ON FILE AND VERIFIED (DAUGHTER SPENCER [phone]) Original Note: PATIENT IS A RE-ADMIT SHE IS ACTIVE WITH [facility] REFERRAL PLACED FOR AGENCY TO FOLLOW. IMM 03/10 LEFT BEDSIDE WITH CONTACT CARD FOR THIS [employer], PATIENT IS ASLEEP STILL. SHE IS KNOWN TO CASE MANAGEMENT STAFF AND CM CAN FOLLOW UP WITH PATIENT AND FAMILY WHEN SHE ARRIVES ON THE UNIT.
[2022-03-10 13:43] LABS: Glucose, Whole Blood 168 mg/dL (60-115)
--- NOTE | 2022-03-10 13:58 | PC.NURSE ---
report to Hola FIELDS on [facility] [place].
--- NOTE | 2022-03-10 15:09 | P.PNIM_ITS ---
Subjective Subjective Date of Service: 03/10/22 Interval History: all information gleaned via automotive parts interpreter. Patient noticed to be confused this a.m.; stated her daughter was missing. . . shortly thereafter daughter came to ER to check on mother. States mother has been getting worse as far as confusion has pain concern Review of Systems denies chest pain Denies shortness of breath Denies nausea vomiting diarrhea Denies fever chills Physical Exam Vital Signs: Vital Signs: Last Vital Signs Temp 97.0 F 03/10/22 14:52 Pulse 81 03/10/22 14:52 Resp 20 03/10/22 14:52 BP 178/68 H 03/10/22 14:52 Pulse Ox 94 03/10/22 14:52 O2 Del Method 03/10/22 14:52 O2 Flow Rate 2 03/10/22 14:52 BMI result Body Mass Index 35.5 Const: Other: awake confused no acute distress Resp: Other: clear to auscultation bilaterally no rales rhonchi or wheezes Cardio: Other: no S4; positive S1-S2; no S3 murmurs rubs gallops GI: Other: soft nontender nondistended with normoactive bowel sounds Extrem: Other: no edema bilaterally Objective Data Active Medications Acetaminophen (Acetaminophen 325 Mg Tablet) 650 mg PO Q6H PRN PRN Reason: Pain, Mild (Pain Scale 1-3) Heparin Sodium (Porcine) (Heparin Sodium,Porcine 5,000 Unit/Ml Vial) 5,000 unit SUBCUT Q8H [facility] Last Admin: 03/10/22 12:33 Dose: 5,000 unit Documented By: LIZBET Dextrose/Sodium Chloride (D5ns) 1,000 mls @ 50 mls/hr IVCONT .Q20H [facility] Last Infusion: 03/09/22 22:15 Dose: 0 mls/hr Documented By: KARY Dextrose (D10) 1,000 mls @ 75 mls/hr IVCONT .[id number] [facility] Last Infusion: 03/10/22 00:19 Dose: 0 mls/hr Documented By: KARY Dextrose/Sodium Chloride (D5ns) 1,000 mls @ 50 mls/hr IVCONT .Q20H [facility] Last Admin: 03/10/22 00:17 Dose: 50 mls/hr Documented By: KARY Dextrose (D10) 1,000 mls @ 50 mls/hr IVCONT .Q20H [facility] Last Admin: 03/10/22 00:18 Dose: 50 mls/hr Documented By: KARY Melatonin (Melatonin 3 Mg Tablet) 6 mg PO BEDTIME PRN PRN Reason: Insomnia Senna (Sennosides 8.6 Mg Tablet) 17.2 mg PO BEDTIME PRN PRN Reason: Constipation Sodium Chloride (0.9 % Sodium Chloride Flush 3 Ml Syringe) 3 ml IVFLUSH QSHIFT [facility] Last Admin: 03/10/22 08:29 Dose: Not Given Documented By: LIZBET Non-Admin Reason: fluids running Labs CBC & Chem 7: 03/10/22 06:32 03/10/22 06:32 Labs: Laboratory Results - last 24 hr 03/09/22 03/09/22 03/09/22 18:16 18:34 19:27 MCV 83.6 MCH 25.7 L MCHC 30.7 L RDW 13.6 Plt Count 252 MPV 9.5 Immature Gran % (Auto) 0.4 Neut % (Auto) 68.6 Lymph % (Auto) 19.5 L Petroleum % (Auto) 7.8 Eos % (Auto) 3.3 Baso % (Auto) 0.4 Lymph # (Auto) 1.6 Petroleum # (Auto) 0.6 Eos # (Auto) 0.3 Baso # (Auto) 0.0 Abs Immat Gran (auto) 0.03 Absolute Neuts (auto) 5.7 Absolute Nucleated RBC 0.000 Nucleated RBC % (auto) 0.0 Anion Gap Estim Creat Clear Calc Estimated GFR POC Glucose 30 L* 117 H Random Glucose Calcium Total Bilirubin Direct Bilirubin AST ALT Alkaline Phosphatase B-Natriuretic Peptide Total Protein Albumin Lipase Procalcitonin Urine Color Urine Appearance Urine pH Ur Specific [place] Urine Protein Urine Glucose (UA) Urine Ketones Urine Blood Urine Nitrite Ur Leukocyte Esterase Urine RBC Urine WBC Ur Squamous Epith Cells Urine Bacteria Stool Occult Blood COVID-19 ([facility]) COVID-19 Clin Com Blood Type Antibody Screen 03/09/22 03/09/22 03/09/22 19:27 19:27 19:27 MCV MCH MCHC RDW Plt Count MPV Immature Gran % (Auto) Neut % (Auto) Lymph % (Auto) Petroleum % (Auto) Eos % (Auto) Baso % (Auto) Lymph # (Auto) Pet[place] # (Auto) Eos # (Auto) Baso # (Auto) Abs Immat Gran (auto) Absolute Neuts (auto) Absolute Nucleated RBC Nucleated RBC % (auto) Anion Gap 13 Estim Creat Clear Calc 17.3 Estimated GFR 17 POC Glucose Random Glucose 39 L* Calcium 8.0 L Total Bilirubin < 0.2 Direct Bilirubin < 0.2 AST 18 ALT 12 Alkaline Phosphatase 142 H B-Natriuretic Peptide 638 H Total Protein 6.6 Albumin 3.1 L Lipase 6 L Procalcitonin 0.10 Urine Color Urine Appearance Urine pH Ur Specific [place] Urine Protein Urine Glucose (UA) Urine Ketones Urine Blood Urine Nitrite Ur Leukocyte Esterase Urine RBC Urine WBC Ur Squamous Epith Cells Urine Bacteria Stool Occult Blood COVID-19 ([facility]) COVID-19 [facility] Blood Type Antibody Screen 03/09/22 03/09/22 03/09/22 19:33 19:35 19:56 MCV MCH MCHC RDW Plt Count MPV Immature Gran % (Auto) Neut % (Auto) Lymph % (Auto) Petroleum % (Auto) Eos % (Auto) Baso % (Auto) Lymph # (Auto) Pet[place] # (Auto) Eos # (Auto) Baso # (Auto) Abs Immat Gran (auto) Absolute Neuts (auto) Absolute Nucleated RBC Nucleated RBC % (auto) Anion Gap Estim Creat Clear Calc Estimated GFR POC Glucose 29 L* 104 Random Glucose Calcium Total Bilirubin Direct Bilirubin AST ALT Alkaline Phosphatase B-Natriuretic Peptide Total Protein Albumin Lipase Procalcitonin Urine Color YELLOW Urine Appearance CLEAR Urine pH 6.0 Ur Specific [place] 1.025 Urine Protein 2+ H Urine Glucose (UA) NEG Urine Ketones NEG Urine Blood 1+ H Urine Nitrite NEG Ur Leukocyte Esterase NEG Urine RBC 0 Urine WBC 1-4 Ur Squamous Epith Cells 2+ Urine Bacteria 4+ Stool Occult Blood COVID-19 ([facility]) COVID-19 [facility] Blood Type Antibody Screen 03/09/22 03/09/22 03/09/22 21:36 21:58 22:03 MCV MCH MCHC RDW Plt Count MPV Immature Gran % (Auto) Neut % (Auto) Lymph % (Auto) Petroleum % (Auto) Eos % (Auto) Baso % (Auto) Lymph # (Auto) Pet[place] # (Auto) Eos # (Auto) Baso # (Auto) Abs Immat Gran (auto) Absolute Neuts (auto) Absolute Nucleated RBC Nucleated RBC % (auto) Anion Gap Estim Creat Clear Calc Estimated GFR POC Glucose 21 L* Random Glucose Calcium Total Bilirubin Direct Bilirubin AST ALT Alkaline Phosphatase B-Natriuretic Peptide Total Protein Albumin Lipase Procalcitonin Urine Color Urine Appearance Urine pH Ur Specific [place] Urine Protein Urine Glucose (UA) Urine Ketones Urine Blood Urine Nitrite Ur Leukocyte Esterase Urine RBC Urine WBC Ur Squamous Epith Cells Urine Bacteria Stool Occult Blood NEGATIVE COVID-19 ([facility]) COVID-19 [facility] Com Blood Type B Positive Antibody Screen NEGATIVE 03/09/22 03/09/22 03/09/22 22:06 22:39 23:01 MCV MCH MCHC RDW Plt Count MPV Immature Gran % (Auto) Neut % (Auto) Lymph % (Auto) Petroleum % (Auto) Eos % (Auto) Baso % (Auto) Lymph # (Auto) [place] # (Auto) Eos # (Auto) Baso # (Auto) Abs Immat Gran (auto) Absolute Neuts (auto) Absolute Nucleated RBC Nucleated RBC % (auto) Anion Gap Estim Creat Clear Calc Estimated GFR POC Glucose 229 H 196 H 185 H Random Glucose Calcium Total Bilirubin Direct Bilirubin AST ALT Alkaline Phosphatase B-Natriuretic Peptide Total Protein Albumin Lipase Procalcitonin Urine Color Urine Appearance Urine pH Ur Specific [place] Urine Protein Urine Glucose (UA) Urine Ketones Urine Blood Urine Nitrite Ur Leukocyte Esterase Urine RBC Urine WBC Ur Squamous Epith Cells Urine Bacteria Stool Occult Blood COVID-19 ([facility]) COVID-19 [facility] Com Blood Type Antibody Screen 03/09/22 03/10/22 03/10/22 23:34 00:13 00:45 MCV MCH MCHC RDW Plt Count MPV Immature Gran % (Auto) Neut % (Auto) Lymph % (Auto) Pet[place] % (Auto) Eos % (Auto) Baso % (Auto) Lymph # (Auto) Pet[place] # (Auto) Eos # (Auto) Baso # (Auto) Abs Immat Gran (auto) Absolute Neuts (auto) Absolute Nucleated RBC Nucleated RBC % (auto) Anion Gap Estim Creat Clear Calc Estimated GFR POC Glucose 219 H 186 H 162 H Random Glucose Calcium Total Bilirubin Direct Bilirubin AST ALT Alkaline Phosphatase B-Natriuretic Peptide Total Protein Albumin Lipase Procalcitonin Urine Color Urine Appearance Urine pH Ur Specific [place] Urine Protein Urine Glucose (UA) Urine Ketones Urine Blood Urine Nitrite Ur Leukocyte Esterase Urine RBC Urine WBC Ur Squamous Epith Cells Urine Bacteria Stool Occult Blood COVID-19 ([facility]) COVID-19 [facility] Com Blood Type Antibody Screen 03/10/22 03/10/22 03/10/22 01:18 01:52 02:43 MCV MCH MCHC RDW Plt Count MPV Immature Gran % (Auto) Neut % (Auto) Lymph % (Auto) Petroleum % (Auto) Eos % (Auto) Baso % (Auto) Lymph # (Auto) Pet[place] # (Auto) Eos # (Auto) Baso # (Auto) Abs Immat Gran (auto) Absolute Neuts (auto) Absolute Nucleated RBC Nucleated RBC % (auto) Anion Gap Estim Creat Clear Calc Estimated GFR POC Glucose 161 H 158 H 139 H Random Glucose Calcium Total Bilirubin Direct Bilirubin AST ALT Alkaline Phosphatase B-Natriuretic Peptide Total Protein Albumin Lipase Procalcitonin Urine Color Urine Appearance Urine pH Ur Specific [place] Urine Protein Urine Glucose (UA) Urine Ketones Urine Blood Urine Nitrite Ur Leukocyte Esterase Urine RBC Urine WBC Ur Squamous Epith Cells Urine Bacteria Stool Occult Blood COVID-19 ([facility]) [facility] Blood Type Antibody Screen 03/10/22 03/10/22 03/10/22 03:23 04:15 04:53 MCV MCH MCHC RDW Plt Count MPV Immature Gran % (Auto) Neut % (Auto) Lymph % (Auto) Pet[place] % (Auto) Eos % (Auto) Baso % (Auto) Lymph # (Auto) [place] # (Auto) Eos # (Auto) Baso # (Auto) Abs Immat Gran (auto) Absolute Neuts (auto) Absolute Nucleated RBC Nucleated RBC % (auto) Anion Gap Estim Creat Clear Calc Estimated GFR POC Glucose 124 H 135 H 157 H Random Glucose Calcium Total Bilirubin Direct Bilirubin AST ALT Alkaline Phosphatase B-Natriuretic Peptide Total Protein Albumin Lipase Procalcitonin Urine Color Urine Appearance Urine pH Ur Specific [place] Urine Protein Urine Glucose (UA) Urine Ketones Urine Blood Urine Nitrite Ur Leukocyte Esterase Urine RBC Urine WBC Ur Squamous Epith Cells Urine Bacteria Stool Occult Blood COVID-19 ([facility]) COVID-19 [facility] Blood Type Antibody Screen 03/10/22 03/10/22 03/10/22 06:05 06:32 06:32 MCV 82.9 MCH 25.4 L MCHC 30.7 L RDW 13.7 Plt Count 294 MPV 10.6 Immature Gran % (Auto) 0.8 H Neut % (Auto) 87.9 H Lymph % (Auto) 6.8 L [place] % (Auto) 2.6 Eos % (Auto) 1.6 Baso % (Auto) 0.3 Lymph # (Auto) 1.0 L [place] # (Auto) 0.4 Eos # (Auto) 0.2 Baso # (Auto) 0.0 Abs Immat Gran (auto) 0.11 H Absolute Neuts (auto) 12.4 H Absolute Nucleated RBC 0.000 Nucleated RBC % (auto) 0.0 Anion Gap 13 Estim Creat Clear Calc 17.4 Estimated GFR 18 POC Glucose 135 H Random Glucose 151 H Calcium 8.0 L Total Bilirubin Direct Bilirubin AST ALT Alkaline Phosphatase B-Natriuretic Peptide Total Protein Albumin Lipase Procalcitonin Urine Color Urine Appearance Urine pH Ur Specific [place] Urine Protein Urine Glucose (UA) Urine Ketones Urine Blood Urine Nitrite Ur Leukocyte Esterase Urine RBC Urine WBC Ur Squamous Epith Cells Urine Bacteria Stool Occult Blood COVID-19 ([facility]) [facility] Blood Type Antibody Screen 03/10/22 03/10/22 03/10/22 07:37 08:59 10:54 MCV MCH MCHC RDW Plt Count MPV Immature Gran % (Auto) Neut % (Auto) Lymph % (Auto) Petroleum % (Auto) Eos % (Auto) Baso % (Auto) Lymph # (Auto) Pet[place] # (Auto) Eos # (Auto) Baso # (Auto) Abs Immat Gran (auto) Absolute Neuts (auto) Absolute Nucleated RBC Nucleated RBC % (auto) Anion Gap Estim Creat Clear Calc Estimated GFR POC Glucose 129 H 130 H 152 H Random Glucose Calcium Total Bilirubin Direct Bilirubin AST ALT Alkaline Phosphatase B-Natriuretic Peptide Total Protein Albumin Lipase Procalcitonin Urine Color Urine Appearance Urine pH Ur Specific [place] Urine Protein Urine Glucose (UA) Urine Ketones Urine Blood Urine Nitrite Ur Leukocyte Esterase Urine RBC Urine WBC Ur Squamous Epith Cells Urine Bacteria Stool Occult Blood COVID-19 ([facility]) COVID-19 [facility] Blood Type Antibody Screen 03/10/22 03/10/22 03/10/22 10:58 11:20 13:30 MCV MCH MCHC RDW Plt Count MPV Immature Gran % (Auto) Neut % (Auto) Lymph % (Auto) Petroleum % (Auto) Eos % (Auto) Baso % (Auto) Lymph # (Auto) Pet[place] # (Auto) Eos # (Auto) Baso # (Auto) Abs Immat Gran (auto) Absolute Neuts (auto) Absolute Nucleated RBC Nucleated RBC % (auto) Anion Gap Estim Creat Clear Calc Estimated GFR POC Glucose 158 H 168 H Random Glucose Calcium Total Bilirubin Direct Bilirubin AST ALT Alkaline Phosphatase B-Natriuretic Peptide Total Protein Albumin Lipase Procalcitonin Urine Color Urine Appearance Urine pH Ur Specific [place] Urine Protein Urine Glucose (UA) Urine Ketones Urine Blood Urine Nitrite Ur Leukocyte Esterase Urine RBC Urine WBC Ur Squamous Epith Cells Urine Bacteria Stool Occult Blood COVID-19 ([facility]) Negative COVID-19 Clin Com See Note Blood Type Antibody Screen Microbiology Microbiology Results: Microbiology 03/09/22 18:35 Urine Culture - Preliminary Urine clean catch - Urine chery top Culture too young to evaluate. Assessment and Plan (1) Hypoglycemia: Status: Acute (2) AMS (altered mental status): Status: Acute (3) CKD (chronic kidney disease) stage 3, GFR 30-59 ml/min: Status: Acute Plan 66-year-old female with a past medical history of hypertension, hyperlipidemia, diabetes, CKD, CHF, anxiety, depression presented to the hospital with a chief complaint of low blood sugar/altered mental status 1.Hypoglycemia - secondary to poor p.o. intake and continuance of therapy - normalized with oral intake - follow lispro correctional scale..POCs - add back therapies as outpatient 2. Acute diastolic heart failure - last echo 06/2021. . . LVEF normal - given 1 dose IV Lasix will recheck proBNP - continue outpatient therapies 3.CKD 3 - Creatinine at baseline of 2.6-2.7. - continue outpatient therapies -follow renals/divalents Lovenox DNR/DNI. requires ongoing hospitalization for monitoring of mental status and empiric IV therapy for active urine sediment Quality Stroke Does the patient have a stroke diagnosis?: No VTE Prior VTE?: No VTE Risk Level:: Medical - moderate - high VTE Device Contraindication: Treatment Not Indicated VTE Drug Contraindication: N/A - Med Ordered
[2022-03-10 15:46] LABS: Glucose, Whole Blood 159 mg/dL (60-115)
[2022-03-10] MEDS: cefTRIAXone sodium 1 GM in 0.9 % Sodium Chloride 50 ML IV (15:54)
[2022-03-10 19:49] LABS: Glucose, Whole Blood 172 mg/dL (60-115)
[2022-03-11] VITALS (7 sets, daily range): BP systolic 106–160; BP diastolic 63–89; PULSE 77–83; RESP 18–23; TEMP 36.1–36.4; O2SAT 90–98
[2022-03-11] MEDS: Heparin Sodium,Porcine 5,000 UNIT/ML VIAL 5000 UNIT SUBCUT ×3 (03:34→18:08)
[2022-03-11 07:27] LABS: Glucose, Whole Blood 108 mg/dL (60-115)
--- NOTE | 2022-03-11 09:32 | P.CDIC_ITS ---
CDI Concurrent Query Documentation Clarification: PHYSICIAN'S DOCUMENTATION REQUEST Date of Query: 03/11/22931 Patient Name: Debbie Guerra Admit Date: 03/09/22 Dear Doctor, A review of the medical record indicates additional documentation may be needed. Please review below and update the documentation accordingly. Clinical Indicators: Risk Factors/Clinical Indicators/Treatments Body mass index: 35.5 4' 10 in height If possible, please provide an associated diagnosis related to the abnormal BMI, such as: For a BMI >= 35: * Overweight * Obesity * Due to excess calories * Drug induced * Due to other cause * Severe or Morbid Obesity * With alveolar hypoventilation * Without alveolar hypoventilation Or: * BMI is not significant * Other (please specify) * Unable to determine Use of terms such as suspected, likely, concern for, or probable (associated with a specific diagnosis that is being evaluated, monitored, or treated as if it exists) are acceptable and can be coded in the inpatient setting, when documented at the time of discharge. Thank you, Kylie Alonso [facility], CDIS Extension: [phone] Please use your independent medical judgment in providing your response. THIS QUERY IS PART OF THE PERMANENT MEDICAL RECORD Provider Response: Other Other Diagnosis: overweight due to excess calories
--- NOTE | 2022-03-11 09:32 | MHC.CDI.CONC ---
CDI Concurrent Query Documentation Clarification: PHYSICIAN'S DOCUMENTATION REQUEST Date of Query: 03/11/22 0932 Patient Name: Debbie Guerra Admit Date: 03/09/22 Dear Doctor, A review of the medical record indicates additional documentation may be needed. Please review below and update the documentation accordingly. Clinical Indicators: Risk Factors/Clinical Indicators/Treatments Body mass index: 35.5 4' 10 in height If possible, please provide an associated diagnosis related to the abnormal BMI, such as: For a BMI >= 35: Overweight Obesity Due to excess calories Drug induced Due to other cause Severe or Morbid Obesity With alveolar hypoventilation Without alveolar hypoventilation Or: BMI is not significant Other (please specify) Unable to determine Use of terms such as suspected, likely, concern for, or probable (associated with a specific diagnosis that is being evaluated, monitored, or treated as if it exists) are acceptable and can be coded in the inpatient setting, when documented at the time of discharge. Thank you, Kylie Aolnso [facility], [facility] Extension: [phone] Please use your independent medical judgment in providing your response. THIS QUERY IS PART OF THE PERMANENT MEDICAL RECORD Provider Response: Other Other Diagnosis: overweight due to excess calories
[2022-03-11] MEDS: Piperacillin Sodium/Tazobactam 2.25 GM in 0.9 % Sodium Chloride 50 ML IV ×3 (10:03→21:54)
[2022-03-11] MEDS: 0.9 % Sodium Chloride Flush 3 ML SYRINGE IVFLUSH ×2 (10:03→15:25)
[2022-03-11 10:09] LABS: MANUAL DIFF FLAG NO
[2022-03-11 10:10] LABS: Basophils Percent Auto 0.2 % (0-2); Eosinophils Absolute Auto 0.5 X10*3/uL (0.0-0.4); Hematocrit 23.9 % (37.0-47.0); Hemoglobin 7.2 g/dl (12.0-16.0); Imm Gran Abs Auto 0.04 X10*3/uL (0.00-0.03); Imm Gran Pct Auto 0.5 % (0.0-0.4); Lymphocytes Absolute Auto 1.8 X10*3/uL (1.2-4.9); Lymphocytes Percent Auto 20.9 % (20-40); Mean Corpuscular HGB Conc 30.1 g/dl (31.0-35.0); Mean Corpuscular Hemoglobin 25.3 pg (27.0-33.0); Mean Corpuscular Volume 83.9 fL (80.0-98.0); Mean Platelet Volume 9.7 fL (9.4-12.3); Monocytes Absolute Auto 0.7 X10*3/uL (0.1-1.2); Monocytes Percent Auto 7.6 % (2-11); Neutrophils Absolute Auto 5.5 x10*3/uL (2.0-8.3); Neutrophils Percent Auto 64.8 % (45-73); Platelet Count 265 X10*3/uL (160-400); Red Blood Count 2.85 X10*6/uL (4.20-5.50); Red Cell Distribution Width 13.8 % (11.0-16.0); White Blood Count 8.5 X10*3/uL (4.8-10.8)
[2022-03-11 10:28] LABS: Alanine Aminotransferase 15 U/L (0-31); Albumin Level 3.2 g/dL (3.5-5.0); Alkaline Phosphatase 133 U/L (39-117); Anion Gap 13 (12-20); Aspartate Amino Transferase 20 U/L (5-31); Bilirubin Total 0.3 mg/dL (0.0-1.0); Blood Urea Nitrogen 25 mg/dL (9-16); Calcium 8.2 mg/dL (8.4-10.2); Carbon Dioxide 25 mmol/L (22-29); Chloride 109 mmol/L (96-108); Creatinine Clr Calc Pharmacy 16.2; Estimated Glomerular Filt Rate 16; Glucose Random 170 mg/dL (60-115); Potassium 4.9 mmol/L (3.3-5.1); Sodium 142 mmol/L (135-145); Total Protein 6.8 g/dL (6.5-8.0)
[2022-03-11 11:39] LABS: Glucose, Whole Blood 155 mg/dL (60-115)
[2022-03-11] MEDS: Dextrose 5 % and 0.45 % NaCl 1,000 ML 100 ML IVCONT ×2 (12:13→23:32)
[2022-03-11] MEDS: Morphine Sulfate 2 MG/ML CARTRIDGE IVPUSH (12:13)
--- NOTE | 2022-03-11 14:14 | P.PNIM_ITS ---
Subjective Subjective Date of Service: 03/11/22 Interval History: mild right upper quadrant pain when examined Review of Systems denies chest pain Denies shortness of breath Denies nausea vomiting diarrhea Denies fever chills Physical Exam Vital Signs: Vital Signs: Last Vital Signs Temp 97.2 F 03/11/22 11:34 Pulse 81 03/11/22 11:34 Resp 20 03/11/22 12:13 BP 115/89 03/11/22 11:34 Pulse Ox 90 L 03/11/22 11:34 O2 Del Method 03/11/22 11:34 O2 Flow Rate 2 03/11/22 11:34 BMI result Body Mass Index 35.5 Const: Other: awake confused no acute distress Resp: Other: clear to auscultation bilaterally no rales rhonchi or wheezes Cardio: Other: no S4; positive S1-S2; no S3 murmurs rubs gallops GI: Other: soft nontender nondistended with normoactive bowel sounds Extrem: Other: no edema bilaterally Objective Data Active Medications Acetaminophen (Acetaminophen 325 Mg Tablet) 650 mg PO Q6H PRN PRN Reason: Pain, Mild (Pain Scale 1-3) Heparin Sodium (Porcine) (Heparin Sodium,Porcine 5,000 Unit/Ml Vial) 5,000 unit SUBCUT Q8H [facility] Last Admin: 03/11/22 12:13 Dose: 5,000 unit Documented By: THOMAS Piperacillin Sod/Tazobactam (Sod 2.25 gm/ Sodium Chloride) 50 mls @ 100 mls/hr IV Q6H [facility] Last Infusion: 03/11/22 10:42 Dose: 0 mls/hr Documented By: THOMAS Dextrose/Sodium Chloride (D51/2ns) 1,000 mls @ 100 mls/hr IVCONT .Q10H [facility] Last Admin: 03/11/22 12:13 Dose: 100 mls/hr Documented By: THOMAS Melatonin (Melatonin 3 Mg Tablet) 6 mg PO BEDTIME PRN PRN Reason: Insomnia Senna (Sennosides 8.6 Mg Tablet) 17.2 mg PO BEDTIME PRN PRN Reason: Constipation Sodium Chloride (0.9 % Sodium Chloride Flush 3 Ml Syringe) 3 ml IVFLUSH QSHIFT [facility] Last Admin: 03/11/22 10:03 Dose: 3 ml Documented By: HTOMAS Labs CBC & Chem 7: 03/11/22 10:03 03/11/22 10:03 Labs: Laboratory Results - last 24 hr 03/10/22 03/10/22 03/11/22 15:42 19:43 07:20 MCV MCH MCHC RDW Plt Count MPV Immature Gran % (Auto) Neut % (Auto) Lymph % (Auto) [place] % (Auto) Eos % (Auto) Baso % (Auto) Lymph # (Auto) [place] # (Auto) Eos # (Auto) Baso # (Auto) Abs Immat Gran (auto) Absolute Neuts (auto) Absolute Nucleated RBC Nucleated RBC % (auto) Anion Gap Estim Creat Clear Calc Estimated GFR POC Glucose 159 H 172 H 108 Random Glucose Calcium Total Bilirubin AST ALT Alkaline Phosphatase Total Protein Albumin 03/11/22 03/11/22 03/11/22 10:03 10:03 11:32 MCV 83.9 MCH 25.3 L MCHC 30.1 L RDW 13.8 Plt Count 265 MPV 9.7 Immature Gran % (Auto) 0.5 H Neut % (Auto) 64.8 Lymph % (Auto) 20.9 [place] % (Auto) 7.6 Eos % (Auto) 6.0 H Baso % (Auto) 0.2 Lymph # (Auto) 1.8 [place] # (Auto) 0.7 Eos # (Auto) 0.5 H Baso # (Auto) 0.0 Abs Immat Gran (auto) 0.04 H Absolute Neuts (auto) 5.5 Absolute Nucleated RBC 0.000 Nucleated RBC % (auto) 0.0 Anion Gap 13 Estim Creat Clear Calc 16.2 Estimated GFR 16 POC Glucose 155 H Random Glucose 170 H Calcium 8.2 L Total Bilirubin 0.3 AST 20 ALT 15 Alkaline Phosphatase 133 H Total Protein 6.8 Albumin 3.2 L Microbiology Microbiology Results: Microbiology 03/09/22 18:35 Urine Culture - Preliminary Urine clean catch - Urine chery top Culture in progress. Assessment and Plan (1) Hypoglycemia: Status: Acute (2) Abdominal pain: Status: Acute (3) Altered mental status: Status: Acute (4) Acute congestive heart failure: Status: Acute (5) CKD (chronic kidney disease) stage 3, GFR 30-59 ml/min: Status: Acute Plan 66-year-old female with a past medical history of hypertension, hyperlipidemia, diabetes, CKD, CHF, anxiety, depression presented to the hospital with a chief complaint of low blood sugar/altered mental status 1.Hypoglycemia... normalized - follow lispro correctional scale..POCs - add back therapies as outpatient 2. Abd pain -US unremarkable -conservatives 3.Acute MS changes -likely secondary to hypoglycemia in backdrop of dementia -improved 4.Acute diastolic heart failure - recheck proBNP - continue outpatient therapies 3.CKD 3 - Creatinine at baseline of 2.6-2.7. -continue outpatient therapies -follow renals/divalents Lovenox DNR/DNI. requires ongoing hospitalization for monitoring of mental status and empiric IV therapy for active urine sediment Quality Stroke Does the patient have a stroke diagnosis?: No VTE Prior VTE?: No VTE Risk Level:: Medical - moderate - high VTE Device Contraindication: Treatment Not Indicated VTE Drug Contraindication: N/A - Med Ordered
[2022-03-11 16:40] LABS: Glucose, Whole Blood 167 mg/dL (60-115)
[2022-03-11 19:28] LABS: Glucose, Whole Blood 206 mg/dL (60-115)
[2022-03-11 23:14] LABS: Glucose, Whole Blood 183 mg/dL (60-115)
[2022-03-12] VITALS (8 sets, daily range): BP systolic 126–175; BP diastolic 50–87; PULSE 77–93; RESP 18–22; TEMP 36.1–37.7; O2SAT 90–97
[2022-03-12] MEDS: Heparin Sodium,Porcine 5,000 UNIT/ML VIAL 5000 UNIT SUBCUT ×3 (02:36→18:17)
[2022-03-12] MEDS: Piperacillin Sodium/Tazobactam 2.25 GM in 0.9 % Sodium Chloride 50 ML IV (02:36)
[2022-03-12 04:59] LABS: Glucose, Whole Blood 164 mg/dL (60-115)
[2022-03-12 06:22] LABS: MANUAL DIFF FLAG NO
[2022-03-12 06:38] LABS: Basophils Percent Auto 0.4 % (0-2); Eosinophils Absolute Auto 0.5 X10*3/uL (0.0-0.4); Eosinophils Percent Auto 5.8 % (0-4); Hematocrit 23.6 % (37.0-47.0); Hemoglobin 7.1 g/dl (12.0-16.0); Imm Gran Abs Auto 0.03 X10*3/uL (0.00-0.03); Imm Gran Pct Auto 0.4 % (0.0-0.4); Lymphocytes Absolute Auto 1.4 X10*3/uL (1.2-4.9); Lymphocytes Percent Auto 16.2 % (20-40); Mean Corpuscular HGB Conc 30.1 g/dl (31.0-35.0); Mean Corpuscular Hemoglobin 25.4 pg (27.0-33.0); Mean Corpuscular Volume 84.6 fL (80.0-98.0); Mean Platelet Volume 10.5 fL (9.4-12.3); Monocytes Absolute Auto 0.6 X10*3/uL (0.1-1.2); Monocytes Percent Auto 7.6 % (2-11); Neutrophils Absolute Auto 5.9 x10*3/uL (2.0-8.3); Neutrophils Percent Auto 69.6 % (45-73); Platelet Count 284 X10*3/uL (160-400); Red Blood Count 2.79 X10*6/uL (4.20-5.50); Red Cell Distribution Width 13.7 % (11.0-16.0); White Blood Count 8.5 X10*3/uL (4.8-10.8)
[2022-03-12 06:47] LABS: Alanine Aminotransferase 11 U/L (0-31); Albumin Level 3.1 g/dL (3.5-5.0); Alkaline Phosphatase 126 U/L (39-117); Anion Gap 14 (12-20); Aspartate Amino Transferase 15 U/L (5-31); Bilirubin Total 0.6 mg/dL (0.0-1.0); Blood Urea Nitrogen 23 mg/dL (9-16); Calcium 7.9 mg/dL (8.4-10.2); Carbon Dioxide 22 mmol/L (22-29); Chloride 108 mmol/L (96-108); Estimated Glomerular Filt Rate 17; Glucose Fasting 199 mg/dL (60-99); Potassium 4.5 mmol/L (3.3-5.1); Sodium 139 mmol/L (135-145); Total Protein 6.7 g/dL (6.5-8.0)
[2022-03-12 06:50] LABS: B Type Natriuretic Peptide 934 pg/mL (<100)
[2022-03-12 07:21] LABS: Glucose, Whole Blood 157 mg/dL (60-115)
[2022-03-12] MEDS: 0.9 % Sodium Chloride Flush 3 ML SYRINGE IVFLUSH ×3 (08:18→20:34)
[2022-03-12] MEDS: Furosemide 40 MG/4 ML VIAL IVPUSH (08:39)
--- NOTE | 2022-03-12 10:55 | P.CONCA_ITS ---
History of Present Illness History of Present Illness Date of Service: 03/12/22 Chief complaint: Hypoxia Narrative: This is a cardiology consultation regarding cardiomyopathy/shortness of b reath/CHF. Reviewed last office note by Lucretia Flores. Reported to have history of various medical issues including hypertension, hyperlipidemia, diabetes, chronic kidney disease, nonischemic cardiomyopathy, chronic systolic/diastolic heart failure. Based on the last echocardiogram from last year, LVEF 35-40%. There was moderate diastolic dysfunction. Current hospitalization is because of diaphoresis/dizziness/low blood sugar. In this context, there is concern for congestive heart failure and we have been asked to see her. Patient herself states that she had some shortness of breath earlier but nothing at this time. Otherwise, unable to provide much of information. No clear anginal-type complaints. Review of Systems Review of Systems: Yes all other systems are reviewed and are negative Constitutional: Constitutional: Reports as per HPI Eyes: Eyes: Reports as per HPI ENT: Reports as per HPI Cardiovascular: Cardiovascular: Reports as per HPI, Denies acrocyanosis, Denies cool extremities, Denies chest pain, Denies leg edema, Denies lightheadedness, Denies palpitations and Reports dyspnea Respiratory: Respiratory: Reports as per HPI, Reports no additional respiratory complaints and Reports dyspnea Gastrointestinal: Gastrointestinal: Reports as per HPI and Reports no additional gastrointestinal complaints Genitourinary: Genitourinary: Reports as per HPI Musculoskeletal: Musculoskeletal: Reports no additional musculoskeletal complaints and Reports as per HPI Integumentary/Breasts: Skin/Breast: Reports system reviewed and no additional complaints, except as docu Neurologic: Reports system reviewed and no additional complaints, except as documented and Reports as per HPI Psychiatric: Psychiatric: Reports no additional psychiatric complaints and Reports as per HPI Endocrine: Endocrine: Reports no additional endocrine complaints, Reports as per HPI and Denies palpitations Hematologic/Lymphatic: Hematologic/Lymphatic: Reports no additional hematologic/lymphatic complaints and Reports as per HPI Allergic/Immunologic: Allergic/Immunologic: Reports no additional allergic/immunologic complaints and Reports as per HPI PMF Past Medical History Medical History Acute on chronic renal failure Acute respiratory failure with hypoxia Anemia Blister of finger without infection Cholecystectomy planned CKD (chronic kidney disease) CKD (chronic kidney disease), stage IV Congestive heart failure Diabetes Diabetes mellitus Elevated d-dimer Essential hypertension Gastroparesis GERD (gastroesophageal reflux disease) Hand pain Hernia HLD (hyperlipidemia) HTN (hypertension) Hypomagnesemia Irritable bowel syndrome with diarrhea Lightheadedness Low blood pressure Non-ST elevated myocardial infarction Nonischemic cardiomyopathy Other and unspecified hyperlipidemia Pharyngoesophageal dysphagia Type 2 diabetes mellitus with unspecified complications Family History Family History Father Lung cancer Mother Diabetes HTN (hypertension) Heart disease Sister Diabetes Heart disease Brother Heart disease Son Diabetes Daughter Diabetes Surgical History Surgical History H/O: hysterectomy History of esophagogastroduodenoscopy (EGD) Hx of colonoscopy Hx of eye surgery Social History Social History Household Members: Family Household Members Other:: lives with dtr and grandson Housing: Unknown / Unable to assess Do you presently have visiting nurse or other home services: No Unable to assess alcohol history related to: Unable to respond Alcohol intake: never Patient Tobacco Use Status: Never used Tobacco Second Hand Smoke Exposure: No Currently Displaying Signs/Symptoms of Drug Intoxication Withdrawal: No Advance Directives: Yes Advance Directives on File: Yes Advance Directives Date on File: 02/02/22 Do you have thoughts of harming others: None Do you have a plan to hurt others: No Plan Recently lost weight without trying: No service: No Current occupational status: disabled Meds Allergies Allergy/AdvReac Type Severity Reaction Status Date / Time latex [LATEX] Allergy Intermediate ITCHY Verified 06/29/21 13:08 Active Medications: Current Medications Acetaminophen (Acetaminophen 325 Mg Tablet) 650 mg PO Q6H PRN PRN Reason: Pain, Mild (Pain Scale 1-3) Heparin Sodium (Porcine) (Heparin Sodium,Porcine 5,000 Unit/Ml Vial) 5,000 unit SUBCUT Q8H [facility] Last Admin: 03/12/22 02:36 Dose: 5,000 unit Melatonin (Melatonin 3 Mg Tablet) 6 mg PO BEDTIME PRN PRN Reason: Insomnia Senna (Sennosides 8.6 Mg Tablet) 17.2 mg PO BEDTIME PRN PRN Reason: Constipation Sodium Chloride (0.9 % Sodium Chloride Flush 3 Ml Syringe) 3 ml IVFLUSH QSHIFT [facility] Last Admin: 03/12/22 08:18 Dose: 3 ml Home Medications Medication Instructions Recorded Confirmed Last Taken Type aspirin 81 mg tablet,delayed 81 mg PO BEDTIME 06/20/21 03/10/22 01/30/22 History release atorvastatin 80 mg tablet 80 mg PO BEDTIME 06/20/21 03/10/22 01/30/22 History calcium carbonate 600 mg-vitamin 1 tab PO BID 06/20/21 03/10/22 01/30/22 History D3 10 mcg (400 unit) tablet clopidogrel 75 mg tablet 75 mg PO DAILY 06/20/21 03/10/22 01/30/22 History gabapentin 100 mg capsule 100 mg PO BID 06/20/21 03/10/22 01/30/22 History magnesium oxide 400 mg (241.3 mg 400 mg PO BID 06/20/21 03/10/22 01/30/22 Hist ory magnesium) tablet sertraline 50 mg tablet 50 mg PO DAILY 06/20/21 03/10/22 01/30/22 History trazodone 50 mg tablet 50 mg PO BEDTIME 06/20/21 03/10/22 01/30/22 History hydralazine 10 mg tablet 1 tab PO BID 01/31/22 03/10/22 01/30/22 History insulin glargine 100 unit/mL (3 64 unit subcut DAILY 02/22/22 03/10/22 03/09/22 History mL) subcutaneous pen (Lantus Solostar U-100 Insulin) insulin lispro 100 unit/mL 8 - 12 unit subcut TIDAC 02/22/22 03/10/22 Unknown History subcutaneous pen (Humalog KwikPen (U-100) Insulin) sucralfate 1 gram tablet 1 g PO QIDACHS 02/22/22 03/10/22 Unknown History Physical Exam Vital Signs: Vital Signs: Last Vital Signs Temp 97.0 F 03/12/22 07:07 Pulse 77 03/12/22 07:07 Resp 18 03/12/22 07:07 BP 144/50 H 03/12/22 07:07 Pulse Ox 97 03/12/22 07:07 O2 Del Method 03/12/22 07:07 O2 Flow Rate 4 03/12/22 07:07 BMI result Body Mass Index 35.5 Const: General: comfortable and no acute distress Orientation/consciousness: patient oriented x3 HEENT: Other: Unremarkable Head: Yes normal to inspection Neck: Neck: Yes normal visual inspection Chest: Chest palpation & inspection: normal inspection of the chest Resp: Other: Few basal crackles. Cardio: Palpation: normal PMI Heart sounds: S1 normal heart sound present, S2 normal heart sound present, no gallops, Murmur heart sound present systolic early, I/ and at the right sternal border and no rubs GI: Palpation (GI): Soft to palpation Back/Spine/Pelvis: Other: unremarkable Skin: General skin exam: no rashes or lesions noted Neuro: General: patient oriented x3 Extrem: Other: Left below-knee amputation. Psych: Mental Status: mental status grossly normal Objective Labs and Meds Result diagrams: 03/12/22 05:50 03/12/22 05:50 Lab results: Laboratory Results - last 24 hr 03/11/22 03/11/22 03/11/22 10:03 11:32 15:45 WBC RBC Hgb Hct MCV MCH MCHC RDW Plt Count MPV Immature Gran % (Auto) Neut % (Auto) Lymph % (Auto) [place] % (Auto) Eos % (Auto) Baso % (Auto) Lymph # (Auto) [place] # (Auto) Eos # (Auto) Baso # (Auto) Abs Immat Gran (auto) Absolute Neuts (auto) Absolute Nucleated RBC Nucleated RBC % (auto) Sodium Potassium Chloride Carbon Dioxide Anion Gap BUN Creatinine Estim Creat Clear Calc Estimated GFR POC Glucose 155 H 167 H Fasting Glucose Calcium Total Bilirubin AST ALT Alkaline Phosphatase B-Natriuretic Peptide Cancelled Total Protein Albumin 03/11/22 03/11/22 03/12/22 19:16 23:06 04:56 WBC RBC Hgb Hct MCV MCH MCHC RDW Plt Count MPV Immature Gran % (Auto) Neut % (Auto) Lymph % (Auto) [place] % (Auto) Eos % (Auto) Baso % (Auto) Lymph # (Auto) [place] # (Auto) Eos # (Auto) Baso # (Auto) Abs Immat Gran (auto) Absolute Neuts (auto) Absolute Nucleated RBC Nucleated RBC % (auto) Sodium Potassium Chloride Carbon Dioxide Anion Gap BUN Creatinine Estim Creat Clear Calc Estimated GFR POC Glucose 206 H 183 H 164 H Fasting Glucose Calcium Total Bilirubin AST ALT Alkaline Phosphatase B-Natriuretic Peptide Total Protein Albumin 03/12/22 03/12/22 03/12/22 05:50 05:50 05:50 WBC 8.5 RBC 2.79 L Hgb 7.1 L Hct 23.6 L MCV 84.6 MCH 25.4 L MCHC 30.1 L RDW 13.7 Plt Count 284 MPV 10.5 Immature Gran % (Auto) 0.4 Neut % (Auto) 69.6 Lymph % (Auto) 16.2 L [place] % (Auto) 7.6 Eos % (Auto) 5.8 H Baso % (Auto) 0.4 Lymph # (Auto) 1.4 [place] # (Auto) 0.6 Eos # (Auto) 0.5 H Baso # (Auto) 0.0 Abs Immat Gran (auto) 0.03 Absolute Neuts (auto) 5.9 Absolute Nucleated RBC 0.000 Nucleated RBC % (auto) 0.0 Sodium 139 Potassium 4.5 Chloride 108 Carbon Dioxide 22 Anion Gap 14 BUN 23 H Creatinine 2.73 H Estim Creat Clear Calc 17.0 Estimated GFR 17 POC Glucose Fasting Glucose 199 H Calcium 7.9 L Total Bilirubin 0.6 AST 15 ALT 11 Alkaline Phosphatase 126 H B-Natriuretic Peptide 934 H Total Protein 6.7 Albumin 3.1 L 03/12/22 07:11 WBC RBC Hgb Hct MCV MCH MCHC RDW Plt Count MPV Immature Gran % (Auto) Neut % (Auto) Lymph % (Auto) [place] % (Auto) Eos % (Auto) Baso % (Auto) Lymph # (Auto) [place] # (Auto) Eos # (Auto) Baso # (Auto) Abs Immat Gran (auto) Absolute Neuts (auto) Absolute Nucleated RBC Nucleated RBC % (auto) Sodium Potassium Chloride Carbon Dioxide Anion Gap BUN Creatinine Estim Creat Clear Calc Estimated GFR POC Glucose 157 H Fasting Glucose Calcium Total Bilirubin AST ALT Alkaline Phosphatase B-Natriuretic Peptide Total Protein Albumin ECG Interpretation: EKG from last month shows sinus rhythm at 69/Min; LVH with secondary ST-T changes. Nonspecific IVCD. Chronic findings. Imaging Radiologist's impression: Impressions Abdomen Ultrasound 03/11/22 11:13 IMPRESSION: Small pancreas but otherwise unremarkable. The gallbladder has been surgically removed. Normal CBD. Chest X-Ray 03/12/22 05:25 IMPRESSION: Findings suggestive of mild interstitial edema with small bilateral pleural effusions. No dense consolidation is noted. Bilateral streaky atelectasis. Assessment and Plan (1) Acute on chronic systolic and diastolic heart failure, NYHA class 3: Status: Acute (2) Altered mental status: Status: Acute (3) Hypoglycemia: Status: Acute (4) CKD (chronic kidney disease) stage 4, GFR 15-29 ml/min: Status: Acute Plan Chest x-ray with mild interstitial edema, small bilateral pleural effusions. EKG findings are chronic but we do not have any EKG from this admission. Will need to perform. Echocardiogram from last year with LVEF of 35-40% and moderate diastolic dysfunction and elevated filling pressures. Mild aortic valve calcification without any significant stenosis and mild mitral regurgitation. She also had severe pulmonary hypertension at that time. Most recent creatinine is 2.7. BUN 23. Cardiac BNP 934. Overall, possible exacerbation of heart failure in the context of multiple other comorbidities. However limited information from patient as above. As she also has significant kidney issues, will need to be cautious with diuresis. Low- dose IV Lasix is acceptable. Get another EKG. Otherwise, limited options in her care due to frailty, comorbidities as well as renal dysfunction. Will discuss with Dr. Jarquin. Procedures Date of Service Date of Service: 03/12/22
[2022-03-12 11:50] LABS: Glucose, Whole Blood 153 mg/dL (60-115)
--- NOTE | 2022-03-12 13:14 | HO.PM.IMPN ---
Subjective Subjective Date of Service: 03/12/22 Interval History: mild right upper quadrant pain when examined Review of Systems denies chest pain Denies shortness of breath Denies nausea vomiting diarrhea Denies fever chills Physical Exam Vital Signs: Vital Signs: Last Vital Signs Temp 98.2 F 03/12/22 11:42 Pulse 79 03/12/22 11:42 Resp 20 03/12/22 11:42 BP 175/71 H 03/12/22 11:42 Pulse Ox 95 03/12/22 11:42 O2 Del Method 03/12/22 11:42 O2 Flow Rate 4 03/12/22 11:42 BMI result Body Mass Index 35.5 Const: Other: awake confused no acute distress Resp: Other: clear to auscultation bilaterally no rales rhonchi or wheezes Cardio: Other: no S4; positive S1-S2; no S3 murmurs rubs gallops GI: Other: soft nontender nondistended with normoactive bowel sounds Extrem: Other: no edema bilaterally Objective Data Active Medications Acetaminophen (Acetaminophen 325 Mg Tablet) 650 mg PO Q6H PRN PRN Reason: Pain, Mild (Pain Scale 1-3) Heparin Sodium (Porcine) (Heparin Sodium,Porcine 5,000 Unit/Ml Vial) 5,000 unit SUBCUT Q8H [facility] Last Admin: 03/12/22 11:46 Dose: 5,000 unit Documented By: MELINDA Melatonin (Melatonin 3 Mg Tablet) 6 mg PO BEDTIME PRN PRN Reason: Insomnia Senna (Sennosides 8.6 Mg Tablet) 17.2 mg PO BEDTIME PRN PRN Reason: Constipation Sodium Chloride (0.9 % Sodium Chloride Flush 3 Ml Syringe) 3 ml IVFLUSH QSHIFT [facility] Last Admin: 03/12/22 08:18 Dose: 3 ml Documented By: MELINDA Labs CBC & Chem 7: 03/12/22 05:50 03/12/22 05:50 Labs: Laboratory Results - last 24 hr 03/11/22 03/11/22 03/11/22 10:03 15:45 19:16 MCV MCH MCHC RDW Plt Count MPV Immature Gran % (Auto) Neut % (Auto) Lymph % (Auto) [place] % (Auto) Eos % (Auto) Baso % (Auto) Lymph # (Auto) [place] # (Auto) Eos # (Auto) Baso # (Auto) Abs Immat Gran (auto) Absolute Neuts (auto) Absolute Nucleated RBC Nucleated RBC % (auto) Anion Gap Estim Creat Clear Calc Estimated GFR POC Glucose 167 H 206 H Fasting Glucose Calcium Total Bilirubin AST ALT Alkaline Phosphatase B-Natriuretic Peptide Cancelled Total Protein Albumin 03/11/22 03/12/22 03/12/22 23:06 04:56 05:50 MCV 84.6 MCH 25.4 L MCHC 30.1 L RDW 13.7 Plt Count 284 MPV 10.5 Immature Gran % (Auto) 0.4 Neut % (Auto) 69.6 Lymph % (Auto) 16.2 L [place] % (Auto) 7.6 Eos % (Auto) 5.8 H Baso % (Auto) 0.4 Lymph # (Auto) 1.4 [place] # (Auto) 0.6 Eos # (Auto) 0.5 H Baso # (Auto) 0.0 Abs Immat Gran (auto) 0.03 Absolute Neuts (auto) 5.9 Absolute Nucleated RBC 0.000 Nucleated RBC % (auto) 0.0 Anion Gap Estim Creat Clear Calc Estimated GFR POC Glucose 183 H 164 H Fasting Glucose Calcium Total Bilirubin AST ALT Alkaline Phosphatase B-Natriuretic Peptide Total Protein Albumin 03/12/22 03/12/22 03/12/22 05:50 05:50 07:11 MCV MCH MCHC RDW Plt Count MPV Immature Gran % (Auto) Neut % (Auto) Lymph % (Auto) [place] % (Auto) Eos % (Auto) Baso % (Auto) Lymph # (Auto) [place] # (Auto) Eos # (Auto) Baso # (Auto) Abs Immat Gran (auto) Absolute Neuts (auto) Absolute Nucleated RBC Nucleated RBC % (auto) Anion Gap 14 Estim Creat Clear Calc 17.0 Estimated GFR 17 POC Glucose 157 H Fasting Glucose 199 H Calcium 7.9 L Total Bilirubin 0.6 AST 15 ALT 11 Alkaline Phosphatase 126 H B-Natriuretic Peptide 934 H Total Protein 6.7 Albumin 3.1 L 03/12/22 11:39 MCV MCH MCHC RDW Plt Count MPV Immature Gran % (Auto) Neut % (Auto) Lymph % (Auto) [place] % (Auto) Eos % (Auto) Baso % (Auto) Lymph # (Auto) [place] # (Auto) Eos # (Auto) Baso # (Auto) Abs Immat Gran (auto) Absolute Neuts (auto) Absolute Nucleated RBC Nucleated RBC % (auto) Anion Gap Estim Creat Clear Calc Estimated GFR POC Glucose 153 H Fasting Glucose Calcium Total Bilirubin AST ALT Alkaline Phosphatase B-Natriuretic Peptide Total Protein Albumin Microbiology Microbiology Results: Microbiology 03/09/22 18:35 Urine Culture - Final Urine clean catch - Urine chery top Enterococcus faecium Assessment and Plan (1) Acute on chronic systolic and diastolic heart failure, NYHA class 3: Status: Acute (2) CKD (chronic kidney disease) stage 4, GFR 15-29 ml/min: Status: Acute (3) Type 2 diabetes mellitus with unspecified complications: Status: Acute Plan 66-year-old female with a past medical history of hypertension, hyperlipidemia, diabetes, CKD, CHF, anxiety, depression presented to the hospital with a chief complaint of low blood sugar/altered mental status 1.Acute diastolic heart failure - recheck proBNP - gentle diuresis - serial EKGs 2.CKD 3 - Creatinine at baseline of 2.6-2.7. -continue outpatient therapies -follow renals/divalents 3.Diabetes II - acceptable control on current therapies -lispro sliding scale Lovenox DNR/DNI. requires ongoing hospitalization for monitoring of mental status and empiric IV therapy for active urine sediment Quality Stroke Does the patient have a stroke diagnosis?: No VTE Prior VTE?: No VTE Risk Level:: Medical - moderate - high VTE Device Contraindication: Treatment Not Indicated VTE Drug Contraindication: N/A - Med Ordered
[2022-03-12 16:15] LABS: Glucose, Whole Blood 122 mg/dL (60-115)
[2022-03-12 20:20] LABS: Glucose, Whole Blood 127 mg/dL (60-115)
[2022-03-12] MEDS: Acetaminophen 325 MG TABLET 650 MG PO (20:34)
[2022-03-12] MEDS: Melatonin 3 MG TABLET 6 MG PO (20:34)
[2022-03-13] MEDS: Heparin Sodium,Porcine 5,000 UNIT/ML VIAL 5000 UNIT SUBCUT ×3 (02:50→18:18)
[2022-03-13 06:55] LABS: MANUAL DIFF FLAG NO
[2022-03-13 07:02] LABS: Basophils Percent Auto 0.3 % (0-2); Eosinophils Absolute Auto 0.3 X10*3/uL (0.0-0.4); Eosinophils Percent Auto 3.5 % (0-4); Hematocrit 24.3 % (37.0-47.0); Hemoglobin 7.4 g/dl (12.0-16.0); Imm Gran Abs Auto 0.08 X10*3/uL (0.00-0.03); Imm Gran Pct Auto 0.9 % (0.0-0.4); Lymphocytes Absolute Auto 1.7 X10*3/uL (1.2-4.9); Lymphocytes Percent Auto 19.6 % (20-40); Mean Corpuscular HGB Conc 30.5 g/dl (31.0-35.0); Mean Corpuscular Hemoglobin 25.4 pg (27.0-33.0); Mean Corpuscular Volume 83.5 fL (80.0-98.0); Mean Platelet Volume 10.2 fL (9.4-12.3); Monocytes Absolute Auto 0.6 X10*3/uL (0.1-1.2); Neutrophils Absolute Auto 6.1 x10*3/uL (2.0-8.3); Neutrophils Percent Auto 68.7 % (45-73); Platelet Count 267 X10*3/uL (160-400); Red Blood Count 2.91 X10*6/uL (4.20-5.50); Red Cell Distribution Width 13.8 % (11.0-16.0); White Blood Count 8.8 X10*3/uL (4.8-10.8)
[2022-03-13 07:30] VITALS: BP 143/82; PULSE 78; RESP 20; TEMP 36.6; O2SAT 95
[2022-03-13 07:32] LABS: Alanine Aminotransferase 11 U/L (0-31); Albumin Level 3.4 g/dL (3.5-5.0); Alkaline Phosphatase 132 U/L (39-117); Anion Gap 15 (12-20); Aspartate Amino Transferase 15 U/L (5-31); Bilirubin Total 0.5 mg/dL (0.0-1.0); Blood Urea Nitrogen 21 mg/dL (9-16); Calcium 8.8 mg/dL (8.4-10.2); Carbon Dioxide 22 mmol/L (22-29); Chloride 108 mmol/L (96-108); Estimated Glomerular Filt Rate 18; Glucose Fasting 145 mg/dL (60-99); Potassium 4.3 mmol/L (3.3-5.1); Sodium 141 mmol/L (135-145); Total Protein 7.1 g/dL (6.5-8.0)
[2022-03-13 07:45] LABS: Glucose, Whole Blood 138 mg/dL (60-115)
[2022-03-13] MEDS: Furosemide 40 MG/4 ML VIAL IVPUSH (07:52)
[2022-03-13] MEDS: 0.9 % Sodium Chloride Flush 3 ML SYRINGE IVFLUSH ×3 (07:52→20:29)
[2022-03-13 11:26] LABS: Glucose, Whole Blood 185 mg/dL (60-115)
[2022-03-13 12:00] VITALS: BP 145/89; PULSE 75; RESP 20; TEMP 36.7; O2SAT 93
--- NOTE | 2022-03-13 12:27 | MHC.CM.PN ---
MD indicates patient's daughter discussed question of LTC w/him today. intends on requesting a PT eval for tomorrow am for rehab placement w/a goal of transitioning to LTC. Insurance listed is [employer], will require auth. CM to follow.
--- NOTE | 2022-03-13 13:31 | HO.PM.IMPN ---
Subjective Subjective Date of Service: 03/13/22 Interval History: mild right upper quadrant pain when examined Review of Systems denies chest pain Denies shortness of breath Denies nausea vomiting diarrhea Denies fever chills Physical Exam Vital Signs: Vital Signs: Last Vital Signs Temp 98.1 F 03/13/22 12:00 Pulse 75 03/13/22 12:00 Resp 20 03/13/22 12:00 BP 145/89 H 03/13/22 12:00 Pulse Ox 93 03/13/22 12:00 O2 Del Method 03/13/22 12:00 O2 Flow Rate 5 03/13/22 12:00 BMI result Body Mass Index 35.5 Const: Other: awake confused no acute distress Resp: Other: clear to auscultation bilaterally no rales rhonchi or wheezes Cardio: Other: no S4; positive S1-S2; no S3 murmurs rubs gallops GI: Other: soft nontender nondistended with normoactive bowel sounds Extrem: Other: no edema bilaterally Objective Data Active Medications Acetaminophen (Acetaminophen 325 Mg Tablet) 650 mg PO Q6H PRN PRN Reason: Pain, Mild (Pain Scale 1-3) Last Admin: 03/12/22 20:34 Dose: 650 mg Documented By: CINDA Furosemide (Furosemide 40 Mg Tablet) 40 mg PO DAILY [facility]; Protocol Heparin Sodium (Porcine) (Heparin Sodium,Porcine 5,000 Unit/Ml Vial) 5,000 unit SUBCUT Q8H [facility] Last Admin: 03/13/22 11:39 Dose: 5,000 unit Documented By: MELINDA Melatonin (Melatonin 3 Mg Tablet) 6 mg PO BEDTIME PRN PRN Reason: Insomnia Last Admin: 03/12/22 20:34 Dose: 6 mg Documented By: CINDA Senna (Sennosides 8.6 Mg Tablet) 17.2 mg PO BEDTIME PRN PRN Reason: Constipation Sodium Chloride (0.9 % Sodium Chloride Flush 3 Ml Syringe) 3 ml IVFLUSH QSHIFT [facility] Last Admin: 03/13/22 07:52 Dose: 3 ml Documented By: MELINDA Labs CBC & Chem 7: 03/13/22 06:37 03/13/22 06:37 Labs: Laboratory Results - last 24 hr 03/12/22 03/12/22 03/13/22 16:11 20:15 06:37 MCV 83.5 MCH 25.4 L MCHC 30.5 L RDW 13.8 Plt Count 267 MPV 10.2 Immature Gran % (Auto) 0.9 H Neut % (Auto) 68.7 Lymph % (Auto) 19.6 L [place] % (Auto) 7.0 Eos % (Auto) 3.5 Baso % (Auto) 0.3 Lymph # (Auto) 1.7 [place] # (Auto) 0.6 Eos # (Auto) 0.3 Baso # (Auto) 0.0 Abs Immat Gran (auto) 0.08 H Absolute Neuts (auto) 6.1 Absolute Nucleated RBC 0.000 Nucleated RBC % (auto) 0.0 Anion Gap Estim Creat Clear Calc Estimated GFR POC Glucose 122 H 127 H Fasting Glucose Calcium Total Bilirubin AST ALT Alkaline Phosphatase Total Protein Albumin 03/13/22 03/13/22 03/13/22 06:37 07:32 11:22 MCV MCH MCHC RDW Plt Count MPV Immature Gran % (Auto) Neut % (Auto) Lymph % (Auto) [place] % (Auto) Eos % (Auto) Baso % (Auto) Lymph # (Auto) [place] # (Auto) Eos # (Auto) Baso # (Auto) Abs Immat Gran (auto) Absolute Neuts (auto) Absolute Nucleated RBC Nucleated RBC % (auto) Anion Gap 15 Estim Creat Clear Calc 18.0 Estimated GFR 18 POC Glucose 138 H 185 H Fasting Glucose 145 H Calcium 8.8 D Total Bilirubin 0.5 AST 15 ALT 11 Alkaline Phosphatase 132 H Total Protein 7.1 Albumin 3.4 L Assessment and Plan (1) CKD (chronic kidney disease) stage 4, GFR 15-29 ml/min: Status: Acute (2) Acute on chronic systolic and diastolic heart failure, NYHA class 3: Status: Acute (3) Type 2 diabetes mellitus with unspecified complications: Status: Acute Plan 66-year-old female with a past medical history of hypertension, hyperlipidemia, diabetes, CKD, CHF, anxiety, depression presented to the hospital with a chief complaint of low blood sugar/altered mental status 1.Acute diastolic heart failure - recheck proBNP - po lasix - serial EKGs 2.CKD 3 - Creatinine at baseline of 2.6-2.7. -continue outpatient therapies -follow renals/divalents 3.Diabetes II - acceptable control on current therapies -lispro sliding scale Lovenox DNR/DNI. requires ongoing hospitalization for monitoring of mental status ;will need placement Quality Stroke Does the patient have a stroke diagnosis?: No VTE Prior VTE?: No VTE Risk Level:: Medical - moderate - high VTE Device Contraindication: Treatment Not Indicated VTE Drug Contraindication: N/A - Med Ordered
[2022-03-13 15:49] VITALS: TEMP 36.5
[2022-03-13 16:00] VITALS: BP 136/68; PULSE 77; RESP 18; TEMP 36.5; O2SAT 97
[2022-03-13 16:20] LABS: Glucose, Whole Blood 185 mg/dL (60-115)
[2022-03-13 20:00] VITALS: BP 148/75; PULSE 72; RESP 18; TEMP 36.8; O2SAT 94
[2022-03-13 20:21] LABS: Glucose, Whole Blood 197 mg/dL (60-115)
[2022-03-13 23:56] VITALS: BP 161/63; PULSE 77; RESP 20; TEMP 36.6; O2SAT 93
[2022-03-14] MEDS: Heparin Sodium,Porcine 5,000 UNIT/ML VIAL 5000 UNIT SUBCUT ×3 (02:41→18:46)
[2022-03-14 03:34] VITALS: BP 140/78; PULSE 79; RESP 20; TEMP 36.1; O2SAT 95
[2022-03-14 06:11] LABS: MANUAL DIFF FLAG NO
[2022-03-14 06:18] LABS: Basophils Percent Auto 0.3 % (0-2); Eosinophils Absolute Auto 0.2 X10*3/uL (0.0-0.4); Eosinophils Percent Auto 2.6 % (0-4); Hematocrit 25.2 % (37.0-47.0); Hemoglobin 7.6 g/dl (12.0-16.0); Imm Gran Abs Auto 0.09 X10*3/uL (0.00-0.03); Lymphocytes Absolute Auto 1.4 X10*3/uL (1.2-4.9); Lymphocytes Percent Auto 15.6 % (20-40); Mean Corpuscular HGB Conc 30.2 g/dl (31.0-35.0); Mean Corpuscular Hemoglobin 25.1 pg (27.0-33.0); Mean Corpuscular Volume 83.2 fL (80.0-98.0); Mean Platelet Volume 10.2 fL (9.4-12.3); Monocytes Absolute Auto 0.7 X10*3/uL (0.1-1.2); Monocytes Percent Auto 7.5 % (2-11); Neutrophils Absolute Auto 6.7 x10*3/uL (2.0-8.3); Platelet Count 266 X10*3/uL (160-400); Red Blood Count 3.03 X10*6/uL (4.20-5.50); White Blood Count 9.2 X10*3/uL (4.8-10.8)
[2022-03-14 06:40] LABS: Alanine Aminotransferase 11 U/L (0-31); Albumin Level 3.4 g/dL (3.5-5.0); Alkaline Phosphatase 127 U/L (39-117); Anion Gap 15 (12-20); Aspartate Amino Transferase 12 U/L (5-31); Bilirubin Total 0.5 mg/dL (0.0-1.0); Blood Urea Nitrogen 23 mg/dL (9-16); Calcium 8.6 mg/dL (8.4-10.2); Carbon Dioxide 22 mmol/L (22-29); Chloride 106 mmol/L (96-108); Creatinine Clr Calc Pharmacy 18.7; Estimated Glomerular Filt Rate 19; Glucose Fasting 191 mg/dL (60-99); Potassium 4.5 mmol/L (3.3-5.1); Sodium 138 mmol/L (135-145); Total Protein 7.2 g/dL (6.5-8.0)
[2022-03-14 07:35] VITALS: BP 148/60; PULSE 82; RESP 20; TEMP 36.4; O2SAT 96
[2022-03-14 08:06] LABS: Glucose, Whole Blood 151 mg/dL (60-115)
[2022-03-14] MEDS: Furosemide 40 MG TABLET PO (09:12)
[2022-03-14] MEDS: 0.9 % Sodium Chloride Flush 3 ML SYRINGE IVFLUSH ×3 (09:12→20:17)
--- NOTE | 2022-03-14 10:02 | MHC.CDI.CONC ---
CDI Concurrent Query Documentation Clarification: PHYSICIAN'S DOCUMENTATION REQUEST Date of Query: 03/14/22 1003 Patient Name: Debbie Guerra Admit Date: 03/09/22 Dear Doctor, A review of the medical record indicates additional documentation may be needed. Please review below and update the documentation accordingly. Clinical Indicators: Clarity of specifics within the medical record: Risk Factors/Clinical Indicators/Treatments H&P: 03/09 - PMH: CKD 4 PN: 03/10 & 03/11: Plan: CKD 3 creatinine is at baseline PN: 03/12 & 03/13 - Assessment/plan: CKD 4 Please clarify which of the following accurately represents the patient's renal status: Chronic kidney disease Stage 3 Chronic kidney disease Stage 4 CKD, please provide stage - see criteria ESRD Other (please specify) Unable to determine Criteria for GIL* Stages of Chronic Kidney Disease* 1. Increase in serum creatinine by ? 0.3 mg/dL Level Description GFR (?26.5 micromol/L) within 48 hours, or G1 Normal or High > 90 2. Increase in serum creatinine to ?1.5 times baseline, G2 Mildly decreased 60 ? 89 which is known or presumed to have occurred within 7 days, or G3a Mildly to moderately decreased 45 ? 59 3. Urine volume <0.5 mL/kg/hour for six hours G3b Moderately to severely decreased 30 - 44 G4 Severely decreased 15 ? 29 G5 Kidney failure < 15 *Source: Kidney Disease: Improving Global Outcomes (KDIGO) 2012 Use of terms such as suspected, likely, concern for, or probable (associated with a specific diagnosis that is being evaluated, monitored, or treated as if it exists) are acceptable and can be coded in the inpatient setting, when documented at the time of discharge. Thank you, Kylie Alonso [facility], [facility]IS Extension: [phone] Please use your independent medical judgment in providing your response. THIS QUERY IS PART OF THE PERMANENT MEDICAL RECORD Provider Response: Other Other Diagnosis: stage IV
--- NOTE | 2022-03-14 11:06 | HO.PM.IMPN ---
Subjective Subjective Date of Service: 03/14/22 Interval History: no acute issues overnight Review of Systems Denies chest pain Denies shortness of breath Denies nausea vomiting diarrhea Denies fever chills Physical Exam Vital Signs: Vital Signs: Last Vital Signs Temp 97.5 F 03/14/22 07:35 Pulse 82 03/14/22 07:35 Resp 20 03/14/22 07:35 BP 148/60 H 03/14/22 07:35 Pulse Ox 96 03/14/22 07:35 O2 Del Method 03/14/22 07:35 O2 Flow Rate 5 03/14/22 07:35 BMI result Body Mass Index 35.5 Const: Other: awake confused no acute distress Resp: Other: clear to auscultation bilaterally no rales rhonchi or wheezes Cardio: Other: no S4; positive S1-S2; no S3 murmurs rubs gallops GI: Other: soft nontender nondistended with normoactive bowel sounds Extrem: Other: no edema bilaterally Objective Data Active Medications Acetaminophen (Acetaminophen 325 Mg Tablet) 650 mg PO Q6H PRN PRN Reason: Pain, Mild (Pain Scale 1-3) Last Admin: 03/12/22 20:34 Dose: 650 mg Documented By: CINDA Furosemide (Furosemide 40 Mg Tablet) 40 mg PO DAILY [facility]; Protocol Last Admin: 03/14/22 09:12 Dose: 40 mg Documented By: JAIME Heparin Sodium (Porcine) (Heparin Sodium,Porcine 5,000 Unit/Ml Vial) 5,000 unit SUBCUT Q8H [facility] Last Admin: 03/14/22 10:01 Dose: 5,000 unit Documented By: JAIME Melatonin (Melatonin 3 Mg Tablet) 6 mg PO BEDTIME PRN PRN Reason: Insomnia Last Admin: 03/12/22 20:34 Dose: 6 mg Documented By: CINDA Senna (Sennosides 8.6 Mg Tablet) 17.2 mg PO BEDTIME PRN PRN Reason: Constipation Sodium Chloride (0.9 % Sodium Chloride Flush 3 Ml Syringe) 3 ml IVFLUSH QSDCFT [facility] Last Admin: 03/14/22 09:12 Dose: 3 ml Documented By: JAIME Labs CBC & Chem 7: 03/14/22 06:03 03/14/22 06:03 Labs: Laboratory Results - last 24 hr 03/13/22 03/13/22 03/13/22 11:22 15:53 20:16 MCV MCH MCHC RDW Plt Count MPV Immature Gran % (Auto) Neut % (Auto) Lymph % (Auto) Andrew % (Auto) Eos % (Auto) Baso % (Auto) Lymph # (Auto) Andrew # (Auto) Eos # (Auto) Baso # (Auto) Abs Immat Gran (auto) Absolute Neuts (auto) Absolute Nucleated RBC Nucleated RBC % (auto) Anion Gap Estim Creat Clear Calc Estimated GFR POC Glucose 185 H 185 H 197 H Fasting Glucose Calcium Total Bilirubin AST ALT Alkaline Phosphatase Total Protein Albumin 03/14/22 03/14/22 03/14/22 06:03 06:03 07:20 MCV 83.2 MCH 25.1 L MCHC 30.2 L RDW 14.0 Plt Count 266 MPV 10.2 Immature Gran % (Auto) 1.0 H Neut % (Auto) 73.0 Lymph % (Auto) 15.6 L Andrew % (Auto) 7.5 Eos % (Auto) 2.6 Baso % (Auto) 0.3 Lymph # (Auto) 1.4 Andrew # (Auto) 0.7 Eos # (Auto) 0.2 Baso # (Auto) 0.0 Abs Immat Gran (auto) 0.09 H Absolute Neuts (auto) 6.7 Absolute Nucleated RBC 0.000 Nucleated RBC % (auto) 0.0 Anion Gap 15 Estim Creat Clear Calc 18.7 Estimated GFR 19 POC Glucose 151 H Fasting Glucose 191 H Calcium 8.6 Total Bilirubin 0.5 AST 12 ALT 11 Alkaline Phosphatase 127 H Total Protein 7.2 Albumin 3.4 L Assessment and Plan (1) Acute on chronic systolic and diastolic heart failure, NYHA class 3: Status: Acute (2) CKD (chronic kidney disease) stage 4, GFR 15-29 ml/min: Status: Acute (3) Type 2 diabetes mellitus with unspecified complications: Status: Acute Plan 66-year-old female with a past medical history of hypertension, hyperlipidemia, diabetes, CKD, CHF, anxiety, depression presented to the hospital with a chief complaint of low blood sugar/altered mental status resolved 1.Acute diastolic heart failure.... - po lasix 2.CKD 3 -Creatinine at baseline of 2.6-2.7. -continue outpatient therapies -follow renals/divalents 3.Diabetes II -acceptable control on current therapies -lispro sliding scale Lovenox DNR/DNI. requires ongoing hospitalization for monitoring of mental status ;will need placement Quality Stroke Does the patient have a stroke diagnosis?: No VTE Prior VTE?: No VTE Risk Level:: Medical - moderate - high VTE Device Contraindication: Treatment Not Indicated VTE Drug Contraindication: N/A - Med Ordered
[2022-03-14 11:12] LABS: Glucose, Whole Blood 186 mg/dL (60-115)
[2022-03-14 11:19] VITALS: BP 156/73; PULSE 80; RESP 20; TEMP 36.7; O2SAT 98
--- NOTE | 2022-03-14 13:18 | MHC.CM.PN ---
Per ROUNDS discussion, Daughter can no longer care for Patient at home and PT recommends LTC. [facility] is the only bed offer and CM has left a detailed message for Daughter/HCP/Jessica @ [phone] informing her of this fact. CM awaits authorization from [facility] and will continue to follow.
[2022-03-14 15:40] VITALS: BP 159/80; PULSE 76; RESP 20; TEMP 36.3; O2SAT 96
[2022-03-14 16:33] LABS: Glucose, Whole Blood 215 mg/dL (60-115)
[2022-03-14 20:00] VITALS: BP 179/80; PULSE 77; RESP 18; TEMP 36.3; O2SAT 99
[2022-03-14 20:17] LABS: Glucose, Whole Blood 230 mg/dL (60-115)
[2022-03-14] MEDS: Insulin Lispro 100 UNIT/ML 3 ML VIAL SUBCUT (20:17)
[2022-03-14 23:57] VITALS: BP 138/64; PULSE 76; RESP 18; TEMP 36.8; O2SAT 100
[2022-03-15] MEDS: Heparin Sodium,Porcine 5,000 UNIT/ML VIAL 5000 UNIT SUBCUT ×3 (03:41→18:00)
[2022-03-15 04:00] VITALS: BP 142/56; PULSE 72; RESP 20; TEMP 37.1; O2SAT 96
[2022-03-15 07:28] LABS: Glucose, Whole Blood 189 mg/dL (60-115)
[2022-03-15 07:34] VITALS: BP 157/89; PULSE 79; RESP 20; TEMP 36.7; O2SAT 98
--- NOTE | 2022-03-15 09:09 | MHC.CM.PN ---
Patient has been medically cleared for dc to STR/SNF today. Patient will dc to the only accepting SNF- [facility] today at 1 PM, via [facility]. Patient can be confused; CM addressed IMM over the phone with Daughter/HCP/Adelita @ [phone], who is aware of and in agreement with the dc plan.
[2022-03-15] MEDS: Sodium Polystyrene Sulfon/Sorb 15 GM/60 ML ORAL.SUSP PO (09:13)
[2022-03-15] MEDS: Sertraline HCL 50 MG TABLET PO (09:13)
[2022-03-15] MEDS: carvediloL 6.25 MG TABLET PO ×2 (09:13→21:44)
[2022-03-15] MEDS: Furosemide 40 MG TABLET PO (09:13)
[2022-03-15] MEDS: Insulin Lispro 100 UNIT/ML 3 ML VIAL SUBCUT ×4 (09:13→21:43)
[2022-03-15] MEDS: Calcium + Vitamin D 250 MG TABLET 500 MG PO ×2 (09:13→21:43)
[2022-03-15] MEDS: Clopidogrel Bisulfate 75 MG TABLET PO (09:13)
[2022-03-15] MEDS: Sodium Bicarbonate 650 MG TABLET PO ×2 (09:13→21:43)
[2022-03-15] MEDS: 0.9 % Sodium Chloride Flush 3 ML SYRINGE IVFLUSH ×3 (09:16→21:44)
[2022-03-15] MEDS: Famotidine 20 MG TABLET PO (09:16)
[2022-03-15 10:00] LABS: COVID-19 Test Negative (Negative)
--- NOTE | 2022-03-15 10:19 | MHC.CM.PN ---
Per MD patient cannot be dc today (Increased O2 requirements and needs IV Lasix); CM will cancel dc and inform all involved.
[2022-03-15] MEDS: Furosemide 40 MG/4 ML VIAL IVPUSH ×2 (10:50→17:31)
[2022-03-15 11:17] LABS: Anion Gap 17 (12-20); Blood Urea Nitrogen 24 mg/dL (9-16); Calcium 8.6 mg/dL (8.4-10.2); Carbon Dioxide 21 mmol/L (22-29); Chloride 107 mmol/L (96-108); Creatinine Clr Calc Pharmacy 18.9; Estimated Glomerular Filt Rate 19; Glucose Random 213 mg/dL (60-115); Potassium 4.5 mmol/L (3.3-5.1); Sodium 140 mmol/L (135-145)
[2022-03-15 11:21] LABS: Glucose, Whole Blood 189 mg/dL (60-115)
[2022-03-15 11:22] LABS: B Type Natriuretic Peptide 1961 pg/mL (<100)
[2022-03-15 12:00] VITALS: BP 168/62; PULSE 76; RESP 20; TEMP 36.7; O2SAT 98
[2022-03-15] MEDS: Sucralfate 1 GM TABLET PO ×3 (12:27→21:44)
[2022-03-15 16:00] VITALS: BP 147/70; PULSE 79; RESP 18; TEMP 37.1; O2SAT 96
[2022-03-15 16:26] LABS: Glucose, Whole Blood 175 mg/dL (60-115)
--- NOTE | 2022-03-15 16:35 | HO.PM.IMPN ---
Subjective Subjective Date of Service: 03/15/22 Interval History: This history was taken in [place] from the patient. Worsening dyspnea and now on 6L O2 via NC No chest pain Abd swelling Review of Systems Review of Systems: Yes all other systems are reviewed and are negative Physical Exam Vital Signs: Vital Signs: Last Vital Signs Temp 98.0 F 03/15/22 12:00 Pulse 76 03/15/22 12:00 Resp 20 03/15/22 12:00 BP 168/62 H 03/15/22 12:00 Pulse Ox 98 03/15/22 12:00 O2 Del Method 03/15/22 12:00 O2 Flow Rate 6 03/15/22 12:00 BMI result Body Mass Index 35.5 Gen: in no acute distress HEENT: sclera anicteric, moist mucus membranes Neck: supple Lungs: diminished to bases bilaterally Heart: regular rate and rhythm, no murmurs Abd: soft, non-tender, non-distended, obese Ext: 1+ edema, LLE BKA, multiple finger amputations Skin: warm/well-perfused Neuro: alert and oriented x3, no focal findings Psych: appropriate affect Objective Data Active Medications Acetaminophen (Acetaminophen 325 Mg Tablet) 650 mg PO Q6H PRN PRN Reason: Pain, Mild (Pain Scale 1-3) Last Admin: 03/12/22 20:34 Dose: 650 mg Documented By: CINDA Atorvastatin Calcium (Atorvastatin Calcium 80 Mg Tablet) 80 mg PO BEDTIME [facility] Calcium Carbonate/Cholecalciferol (Calcium + Vitamin D 250 Mg Tablet) 500 mg PO BID [facility] Last Admin: 03/15/22 09:13 Dose: 500 mg Documented By: MINERVA Carvedilol (Carvedilol 6.25 Mg Tablet) 6.25 mg PO BID [facility]; Protocol Last Admin: 03/15/22 09:13 Dose: 6.25 mg Documented By: MINERVA Clopidogrel Bisulfate (Clopidogrel Bisulfate 75 Mg Tablet) 75 mg PO DAILY [facility] Last Admin: 03/15/22 09:13 Dose: 75 mg Documented By: MINERVA Dextrose (Dextrose 50 % 25 Gm/50 Ml Syringe) 25 gm IVPUSH Q15M PRN; Protocol PRN Reason: per Hypoglycemia Standing Ord. Famotidine (Famotidine 20 Mg Tablet) 20 mg PO Q2D [facility] Last Admin: 03/15/22 09:16 Dose: 20 mg Documented By: MINERVA Furosemide (Furosemide 40 Mg/4 Ml Vial) 40 mg IVPUSH BID@0900,1800 [facility]; Protocol Last Admin: 03/15/22 10:50 Dose: 40 mg Documented By: MINERVA Glucose (Glucose Gel 15 Gm Gel..Gram.) 15 gm PO Q15M PRN; Protocol PRN Reason: per Hypoglycemia Standing Ord. Heparin Sodium (Porcine) (Heparin Sodium,Porcine 5,000 Unit/Ml Vial) 5,000 unit SUBCUT Q8H [facility] Last Admin: 03/15/22 10:50 Dose: 5,000 unit Documented By: MINERVA Insulin Human Lispro (Insulin Lispro 100 Unit/Ml 3 Ml Vial) 0 unit SUBCUT [facility]; Protocol Last Admin: 03/15/22 12:27 Dose: 2 unit Documented By: MINERVA Melatonin (Melatonin 3 Mg Tablet) 6 mg PO BEDTIME PRN PRN Reason: Insomnia Last Admin: 03/12/22 20:34 Dose: 6 mg Documented By: CINDA Senna (Sennosides 8.6 Mg Tablet) 17.2 mg PO BEDTIME PRN PRN Reason: Constipation Sertraline HCl (Sertraline Hcl 50 Mg Tablet) 50 mg PO DAILY [facility] Last Admin: 03/15/22 09:13 Dose: 50 mg Documented By: MINERVA Sodium Bicarbonate (Sodium Bicarbonate 650 Mg Tablet) 650 mg PO BID [facility] Last Admin: 03/15/22 09:13 Dose: 650 mg Documented By: MINERVA Sodium Chloride (0.9 % Sodium Chloride Flush 3 Ml Syringe) [facility] Last Admin: 03/15/22 09:16 Dose: 3 ml Documented By: MINERVA Sodium Polystyrene Sulfonate (Sodium Polystyrene Sulfon/Sorb 15 Gm/60 Ml Oral.Susp) 15 gm PO DAILY [facility] Last Admin: 03/15/22 09:13 Dose: 15 gm Documented By: MINERVA Sucralfate (Sucralfate 1 Gm Tablet) 1 gm PO QIDACHS [facility] Last Admin: 03/15/22 12:27 Dose: 1 gm Documented By: MINERVA Trazodone HCl (Trazodone Hcl 50 Mg Tablet) 50 mg PO BEDTIME [facility] Labs CBC & Chem 7: 03/14/22 06:03 06/14/22 10:36 Labs: Laboratory Results - last 24 hr 03/14/22 03/15/22 03/15/22 20:12 07:20 09:00 Anion Gap Estim Creat Clear Calc Estimated GFR POC Glucose 230 H 189 H Random Glucose Calcium B-Natriuretic Peptide COVID-19 (LUCIUS) Negative COVID-19 Clin Com See Note 03/15/22 03/15/22 03/15/22 10:36 10:37 11:04 Anion Gap 17 Estim Creat Clear Calc 18.9 Estimated GFR 19 POC Glucose 189 H Random Glucose 213 H Calcium 8.6 B-Natriuretic Peptide 1961 H COVID-19 ([facility]CIUS) COVID-19 Clin Com 03/15/22 16:07 Anion Gap Estim Creat Clear Calc Estimated GFR POC Glucose 175 H Random Glucose Calcium B-Natriuretic Peptide COVID-19 ([facility]CIUS) COVID-19 Clin Com Assessment and Plan (1) Acute on chronic systolic and diastolic heart failure, NYHA class 3: Status: Acute (2) CKD (chronic kidney disease) stage 4, GFR 15-29 ml/min: Status: Acute (3) Type 2 diabetes mellitus with unspecified complications: Status: Acute Plan hospital d#7 67yo F with NICM, HFpEF, CKD3-4, hx CVA, HTN, HLD, DM2 with gastroparesis s/p L BKA and multiple finger amputations, GERD presenting with AMS due to hypoglycemia + found to have CHF exacerbation # acute/chronic HFpEF - needs IV diuresis- will check BNP + CXR and restart IV furosemide. continue carvedilol # hypoglycemia - likely due to Lantus in setting of CKD, stopped/resolved # anemia of CKD - Hb stable # CKD3-4 - SCr at baseline, continue bicarbonate supplementation # hx CVA - clopidogrel # DM2 - correction-dose lispro # depression - continue trazodone, sertraline # VTE ppx - UFH # dispo - plan LTC In my clinical judgment, the patient requires continued hospitalization for the following reasons: IV diuresis Quality Stroke Does the patient have a stroke diagnosis?: No VTE Prior VTE?: No VTE Risk Level:: Medical - moderate - high VTE Device Contraindication: Treatment Not Indicated VTE Drug Contraindication: N/A - Med Ordered
[2022-03-15 19:20] VITALS: BP 180/77; PULSE 72; RESP 17; TEMP 36.3; O2SAT 99
[2022-03-15 19:58] LABS: Glucose, Whole Blood 151 mg/dL (60-115)
[2022-03-15 20:48] LABS: Glucose, Whole Blood 160 mg/dL (60-115)
[2022-03-15] MEDS: traZODone HCL 50 MG TABLET PO (21:44)
[2022-03-15] MEDS: Atorvastatin Calcium 80 MG TABLET PO (21:44)
[2022-03-15 23:14] VITALS: BP 138/75; PULSE 68; RESP 20; TEMP 36.6; O2SAT 97
[2022-03-16] VITALS (7 sets, daily range): BP systolic 148–158; BP diastolic 56–65; PULSE 67–75; RESP 16–21; TEMP 36.5–36.7; O2SAT 94–98
[2022-03-16 07:09] LABS: Magnesium 1.5 mg/dL (1.6-2.6)
[2022-03-16 08:35] LABS: Glucose, Whole Blood 145 mg/dL (60-115)
[2022-03-16] MEDS: Sertraline HCL 50 MG TABLET PO (08:43)
[2022-03-16] MEDS: Sodium Bicarbonate 650 MG TABLET PO ×2 (08:43→21:25)
[2022-03-16] MEDS: Calcium + Vitamin D 250 MG TABLET 500 MG PO ×2 (08:43→21:25)
[2022-03-16 08:44] LABS: Glucose, Whole Blood 149 mg/dL (60-115)
[2022-03-16] MEDS: Furosemide 40 MG/4 ML VIAL IVPUSH ×2 (08:44→17:20)
[2022-03-16] MEDS: 0.9 % Sodium Chloride Flush 3 ML SYRINGE IVFLUSH ×3 (08:44→21:25)
[2022-03-16] MEDS: Sodium Polystyrene Sulfon/Sorb 15 GM/60 ML ORAL.SUSP PO (08:44)
[2022-03-16] MEDS: carvediloL 6.25 MG TABLET PO ×2 (08:44→21:24)
[2022-03-16] MEDS: Clopidogrel Bisulfate 75 MG TABLET PO (08:44)
[2022-03-16] MEDS: Sucralfate 1 GM TABLET PO ×4 (08:44→21:25)
[2022-03-16 11:20] LABS: Glucose, Whole Blood 220 mg/dL (60-115)
[2022-03-16] MEDS: Heparin Sodium,Porcine 5,000 UNIT/ML VIAL 5000 UNIT SUBCUT ×2 (12:20→18:10)
[2022-03-16] MEDS: Insulin Lispro 100 UNIT/ML 3 ML VIAL SUBCUT ×3 (12:20→21:24)
--- NOTE | 2022-03-16 16:18 | P.PNIM_ITS ---
Subjective Subjective Date of Service: 03/16/22 Interval History: Breathing improved, down to 4L O2 via NC No chest pain No N/V Review of Systems Review of Systems: Yes all other systems are reviewed and are negative Physical Exam Vital Signs: Vital Signs: Last Vital Signs Temp 98.0 F 03/16/22 15:40 Pulse 75 03/16/22 15:40 Resp 16 03/16/22 15:40 BP 153/56 H 03/16/22 15:40 Pulse Ox 97 03/16/22 15:40 O2 Del Method 03/16/22 15:40 O2 Flow Rate 5 03/16/22 12:00 BMI result Body Mass Index 35.5 Gen: in no acute distress HEENT: sclera anicteric, moist mucus membranes Neck: supple Lungs: diminished to bases bilaterally Heart: regular rate and rhythm, no murmurs Abd: soft, non-tender, non-distended, obese Ext: 1+ edema, LLE BKA, multiple finger amputations Skin: warm/well-perfused Neuro: alert and oriented x3, no focal findings Psych: appropriate affect Objective Data Active Medications Acetaminophen (Acetaminophen 325 Mg Tablet) 650 mg PO Q6H PRN PRN Reason: Pain, Mild (Pain Scale 1-3) Last Admin: 03/12/22 20:34 Dose: 650 mg Documented By: CINDA Atorvastatin Calcium (Atorvastatin Calcium 80 Mg Tablet) 80 mg PO BEDTIME [facility] Last Admin: 03/15/22 21:44 Dose: 80 mg Documented By: FIOR Calcium Carbonate/Cholecalciferol (Calcium + Vitamin D 250 Mg Tablet) 500 mg PO BID [facility] Last Admin: 03/16/22 08:43 Dose: 500 mg Documented By: JULITA Carvedilol (Carvedilol 6.25 Mg Tablet) 6.25 mg PO BID [facility]; Protocol Last Admin: 03/16/22 08:44 Dose: 6.25 mg Documented By: JULITA Clopidogrel Bisulfate (Clopidogrel Bisulfate 75 Mg Tablet) 75 mg PO DAILY [facility] Last Admin: 03/16/22 08:44 Dose: 75 mg Documented By: JULITA Dextrose (Dextrose 50 % 25 Gm/50 Ml Syringe) 25 gm IVPUSH Q15M PRN; Protocol PRN Reason: per Hypoglycemia Standing Ord. Famotidine (Famotidine 20 Mg Tablet) 20 mg PO Q2D [facility] Last Admin: 03/15/22 09:16 Dose: 20 mg Documented By: MINERVA Furosemide (Furosemide 40 Mg/4 Ml Vial) 40 mg IVPUSH BID@0900,1800 [facility]; Calvin col Last Admin: 03/16/22 08:44 Dose: 40 mg Documented By: JULITA Glucose (Glucose Gel 15 Gm Gel..Gram.) 15 gm PO Q15M PRN; Protocol PRN Reason: per Hypoglycemia Standing Ord. Heparin Sodium (Porcine) (Heparin Sodium,Porcine 5,000 Unit/Ml Vial) 5,000 unit SUBCUT Q8H [facility] Last Admin: 03/16/22 12:20 Dose: 5,000 unit Documented By: JULITA Insulin Human Lispro (Insulin Lispro 100 Unit/Ml 3 Ml Vial) 0 unit SUBCUT QIDACHS [facility]; Protocol Last Admin: 03/16/22 12:20 Dose: 4 unit Documented By: JULITA Melatonin (Melatonin 3 Mg Tablet) 6 mg PO BEDTIME PRN PRN Reason: Insomnia Last Admin: 03/12/22 20:34 Dose: 6 mg Documented By: ROSETTAUMOC Senna (Sennosides 8.6 Mg Tablet) 17.2 mg PO BEDTIME PRN PRN Reason: Constipation Sertraline HCl (Sertraline Hcl 50 Mg Tablet) 50 mg PO DAILY [facility] Last Admin: 03/16/22 08:43 Dose: 50 mg Documented By: JULITA Sodium Bicarbonate (Sodium Bicarbonate 650 Mg Tablet) 650 mg PO BID [facility] Last Admin: 03/16/22 08:43 Dose: 650 mg Documented By: JULITA Sodium Chloride (0.9 % Sodium Chloride Flush 3 Ml Syringe) 3 ml IVFLUSH QSHIFT [facility] Last Admin: 03/16/22 08:44 Dose: 3 ml Documented By: JULITA Sodium Polystyrene Sulfonate (Sodium Polystyrene Sulfon/Sorb 15 Gm/60 Ml Oral.Susp) 15 gm PO DAILY [facility] Last Admin: 03/16/22 08:44 Dose: 15 gm Documented By: JULITA Sucralfate (Sucralfate 1 Gm Tablet) 1 gm PO QIDACHS [facility] Last Admin: 03/16/22 12:20 Dose: 1 gm Documented By: JULITA Trazodone HCl (Trazodone Hcl 50 Mg Tablet) 50 mg PO BEDTIME [facility] Last Admin: 03/15/22 21:44 Dose: 50 mg Documented By: FIOR Labs CBC & Chem 7: 03/14/22 06:03 03/15/22 10:36 Labs: Laboratory Results - last 24 hr 03/15/22 03/15/22 03/15/22 16:07 19:53 20:44 POC Glucose 175 H 151 H 160 H Magnesium 03/16/22 03/16/22 03/16/22 06:30 07:49 08:31 POC Glucose 149 H 145 H Magnesium 1.5 L 03/16/22 11:09 POC Glucose 220 H Magnesium Assessment and Plan (1) Acute on chronic systolic and diastolic heart failure, NYHA class 3: Status: Acute (2) CKD (chronic kidney disease) stage 4, GFR 15-29 ml/min: Status: Acute (3) Type 2 diabetes mellitus with unspecified complications: Status: Acute Plan hospital d#8 67yo F with NICM, HFpEF, CKD3-4, hx CVA, HTN, HLD, DM2 with gastroparesis s/p L BKA and multiple finger amputations, GERD presenting with AMS due to hypoglycemia + found to have CHF exacerbation # acute/chronic HFpEF - continue IV diuresis that was restarted yesterday. continue carvedilol. # hypoMg - replete, recheck in AM # hypoglycemia - likely due to Lantus in setting of CKD, stopped/resolved # anemia of CKD - Hb stable # CKD3-4 - SCr at baseline, continue bicarbonate supplementation # hx CVA - clopidogrel # DM2 - correction-dose lispro # depression - continue trazodone, sertraline # VTE ppx - UFH # dispo - plan LTC, possibly tomorrow In my clinical judgment, the patient requires continued hospitalization for the following reasons: IV diuresis Quality Stroke Does the patient have a stroke diagnosis?: No VTE Prior VTE?: No VTE Risk Level:: Medical - moderate - high VTE Device Contraindication: Treatment Not Indicated VTE Drug Contraindication: N/A - Med Ordered
[2022-03-16 17:07] LABS: Glucose, Whole Blood 221 mg/dL (60-115)
[2022-03-16] MEDS: Magnesium Sulfate/H2O 2 GM/50 ML PIGGYBACK IV (17:21)
[2022-03-16 21:02] LABS: Glucose, Whole Blood 159 mg/dL (60-115)
[2022-03-16] MEDS: traZODone HCL 50 MG TABLET PO (21:25)
[2022-03-16] MEDS: Atorvastatin Calcium 80 MG TABLET PO (21:25)
[2022-03-17] VITALS (8 sets, daily range): BP systolic 128–169; BP diastolic 50–95; PULSE 66–74; RESP 14–18; TEMP 35.8–37; O2SAT 92–100
[2022-03-17] MEDS: Heparin Sodium,Porcine 5,000 UNIT/ML VIAL 5000 UNIT SUBCUT ×3 (02:36→21:03)
[2022-03-17 07:07] LABS: Glucose, Whole Blood 153 mg/dL (60-115)
[2022-03-17 07:44] LABS: B Type Natriuretic Peptide 1853 pg/mL (<100)
[2022-03-17 07:48] LABS: Anion Gap 14 (12-20); Blood Urea Nitrogen 22 mg/dL (9-16); Calcium 8.5 mg/dL (8.4-10.2); Carbon Dioxide 26 mmol/L (22-29); Chloride 104 mmol/L (96-108); Estimated Glomerular Filt Rate 22; Glucose Random 166 mg/dL (60-115); Magnesium 1.5 mg/dL (1.6-2.6); Sodium 140 mmol/L (135-145)
[2022-03-17] MEDS: Magnesium Sulfate/H2O 2 GM/50 ML PIGGYBACK IV (08:18)
[2022-03-17] MEDS: Furosemide 40 MG/4 ML VIAL IVPUSH ×2 (08:19→17:02)
[2022-03-17] MEDS: 0.9 % Sodium Chloride Flush 3 ML SYRINGE IVFLUSH ×2 (08:20→17:02)
[2022-03-17] MEDS: Insulin Lispro 100 UNIT/ML 3 ML VIAL SUBCUT ×4 (08:22→21:03)
[2022-03-17] MEDS: Sodium Bicarbonate 650 MG TABLET PO ×2 (08:23→21:03)
[2022-03-17] MEDS: Clopidogrel Bisulfate 75 MG TABLET PO (08:23)
[2022-03-17] MEDS: carvediloL 6.25 MG TABLET PO ×2 (08:24→21:03)
[2022-03-17] MEDS: Sodium Polystyrene Sulfon/Sorb 15 GM/60 ML ORAL.SUSP PO (08:24)
[2022-03-17] MEDS: Sertraline HCL 50 MG TABLET PO (08:24)
[2022-03-17] MEDS: Calcium + Vitamin D 250 MG TABLET 500 MG PO ×2 (08:24→21:03)
[2022-03-17] MEDS: Sucralfate 1 GM TABLET PO ×4 (08:24→21:03)
[2022-03-17] MEDS: Famotidine 20 MG TABLET PO (08:27)
[2022-03-17 11:08] LABS: Glucose, Whole Blood 170 mg/dL (60-115)
--- NOTE | 2022-03-17 11:11 | PC.NURSE ---
Addendum entered by Adrianne Solano RN 03/17/22 18:18: WAS ABLE TO TITRATE 02 DOWN FROM 4L NC TO 2L NC - TOLERATING WELL AT THIS TIME. NOTIFIED. Original Note: PER MD: ABLE TO GO TO CT OFF TELEMONITOR.
--- NOTE | 2022-03-17 14:14 | P.PNIM_ITS ---
Subjective Subjective Date of Service: 03/17/22 Interval History: Seen and examined this morning Follow-up for CHF Vague historian reports sometimes short of breath, no cough, no fever, no chills Review of Systems Review of Systems: Yes all other systems are reviewed and are negative Constitutional Constitutional: Denies chills and Denies fever(s) Cardiovascular Cardiovascular: Denies chest pain and Denies palpitations Respiratory Respiratory: Denies cough Gastrointestinal Gastrointestinal: Denies abdominal pain Endocrine Endocrine: Denies palpitations Physical Exam Vital Signs: Vital Signs: Last Vital Signs Temp 97.5 F 03/17/22 11:28 Pulse 67 03/17/22 11:28 Resp 18 03/17/22 11:28 BP 169/66 H 03/17/22 11:28 Pulse Ox 96 03/17/22 11:28 O2 Del Method 03/17/22 11:28 O2 Flow Rate 4 03/17/22 11:28 BMI result Body Mass Index 35.5 Const: General: cooperative, comfortable, alert and awake Nutritional Appearance: obese Orientation/consciousness: patient oriented x3 Resp: Other: inspiratory crackles, dim at bases Cardio: Rate: regular rate Heart sounds: S1 normal heart sound present and S2 normal heart sound present GI: Inspection: No distended Palpation (GI): Soft to palpation and nontende r Neuro: General: patient oriented x3 Extrem: Other: s/p L AKA Objective Data Active Medications Acetaminophen (Acetaminophen 325 Mg Tablet) 650 mg PO Q6H PRN PRN Reason: Pain, Mild (Pain Scale 1-3) Last Admin: 03/12/22 20:34 Dose: 650 mg Documented By: CINDA Atorvastatin Calcium (Atorvastatin Calcium 80 Mg Tablet) 80 mg PO BEDTIME [facility] Last Admin: 03/16/22 21:25 Dose: 80 mg Documented By: FIOR Calcium Carbonate/Cholecalciferol (Calcium + Vitamin D 250 Mg Tablet) 500 mg PO BID [facility] Last Admin: 03/17/22 08:24 Dose: 500 mg Documented By: IVAN Carvedilol (Carvedilol 6.25 Mg Tablet) 6.25 mg PO BID [facility]; Protocol Last Admin: 03/17/22 08:24 Dose: 6.25 mg Documented By: IVAN Clopidogrel Bisulfate (Clopidogrel Bisulfate 75 Mg Tablet) 75 mg PO DAILY [facility] Last Admin: 03/17/22 08:23 Dose: 75 mg Documented By: IVAN Dextrose (Dextrose 50 % 25 Gm/50 Ml Syringe) 25 gm IVPUSH Q15M PRN; Protocol PRN Reason: per Hypoglycemia Standing Ord. Famotidine (Famotidine 20 Mg Tablet) 20 mg PO Q2D [facility] Last Admin: 03/17/22 08:27 Dose: 20 mg Documented By: IVAN Furosemide (Furosemide 40 Mg/4 Ml Vial) 40 mg IVPUSH BID@0900,1800 [facility]; Protocol Last Admin: 03/17/22 08:19 Dose: 40 mg Documented By: IVAN Glucose (Glucose Gel 15 Gm Gel..Gram.) 15 gm PO Q15M PRN; Protocol PRN Reason: per Hypoglycemia Standing Ord. Heparin Sodium (Porcine) (Heparin Sodium,Porcine 5,000 Unit/Ml Vial) 5,000 unit SUBCUT Q8H [facility] Last Admin: 03/17/22 11:51 Dose: 5,000 unit Documented By: IVAN Insulin Human Lispro (Insulin Lispro 100 Unit/Ml 3 Ml Vial) 0 unit SUBCUT QIDACHS [facility]; Protocol Last Admin: 03/17/22 11:51 Dose: 2 unit Documented By: IVAN Melatonin (Melatonin 3 Mg Tablet) 6 mg PO BEDTIME PRN PRN Reason: Insomnia Last Admin: 03/12/22 20:34 Dose: 6 mg Documented By: RICCOOC Senna (Sennosides 8.6 Mg Tablet) 17.2 mg PO BEDTIME PRN PRN Reason: Constipation Sertraline HCl (Sertraline Hcl 50 Mg Tablet) 50 mg PO DAILY [facility] Last Admin: 03/17/22 08:24 Dose: 50 mg Documented By: IVAN Sodium Bicarbonate (Sodium Bicarbonate 650 Mg Tablet) 650 mg PO BID [facility] Last Admin: 03/17/22 08:23 Dose: 650 mg Documented By: IVAN Sodium Chloride (0.9 % Sodium Chloride Flush 3 Ml Syringe) 3 ml IVFLUSH QSHIFT [facility] Last Admin: 03/17/22 08:20 Dose: 3 ml Documented By: IVAN Sodium Polystyrene Sulfonate (Sodium Polystyrene Sulfon/Sorb 15 Gm/60 Ml Oral.Susp) 15 gm PO DAILY [facility] Last Admin: 03/17/22 08:24 Dose: 15 gm Documented By: IVAN Sucralfate (Sucralfate 1 Gm Tablet) 1 gm PO QIDACHS [facility] Last Admin: 03/17/22 11:51 Dose: 1 gm Documented By: IVAN Trazodone HCl (Trazodone Hcl 50 Mg Tablet) 50 mg PO BEDTIME [facility] Last Admin: 03/16/22 21:25 Dose: 50 mg Documented By: FIOR Labs CBC & Chem 7: 03/14/22 06:03 03/17/22 06:52 Labs: Laboratory Results - last 24 hr 03/16/22 03/16/22 03/17/22 16:45 20:49 06:52 Anion Gap 14 Estim Creat Clear Calc 21.0 Estimated GFR 22 POC Glucose 221 H 159 H Random Glucose 166 H Calcium 8.5 Magnesium 1.5 L B-Natriuretic Peptide 03/17/22 03/17/22 03/17/22 06:52 07:02 11:04 Anion Gap Estim Creat Clear Calc Estimated GFR POC Glucose 153 H 170 H Random Glucose Calcium Magnesium B-Natriuretic Peptide 1853 H Assessment and Plan (1) Acute on chronic systolic and diastolic heart failure, NYHA class 3: Status: Acute Plan hospital d#8 67yo F with NICM, HFpEF, CKD3-4, hx CVA, HTN, HLD, DM2 with gastroparesis s/p L BKA and multiple finger amputations, GERD presenting with AMS due to hypoglycemia + found to have CHF exacerbation # acute/chronic HFpEF - continue IV diuresis that was restarted 03/16. continue carvedilol. # hypoMg mag still low at 1.5 - replete, recheck in AM # hypoglycemia - likely due to Lantus in setting of CKD, stopped/resolved # anemia of CKD - Hb stable # CKD3-4 - SCr at baseline, continue bicarbonate supplementation # hx CVA - clopidogrel # DM2 - correction-dose lispro # depression - continue trazodone, sertraline # VTE ppx - UFH # dispo - plan LTC, possibly tomorrow Attending-Dr. Feliz In my clinical judgment, the patient requires continued hospitalization for the following reasons: IV diuresis Quality Stroke Does the patient have a stroke diagnosis?: No VTE Prior VTE?: No VTE Risk Level:: Medical - moderate - high VTE Device Contraindication: Treatment Not Indicated VTE Drug Contraindication: N/A - Med Ordered
[2022-03-17 15:26] LABS: Procalcitonin 0.28 ng/mL
[2022-03-17 16:37] LABS: Glucose, Whole Blood 194 mg/dL (60-115)
[2022-03-17 20:29] LABS: Glucose, Whole Blood 205 mg/dL (60-115)
[2022-03-17] MEDS: Atorvastatin Calcium 80 MG TABLET PO (21:03)
[2022-03-17] MEDS: traZODone HCL 50 MG TABLET PO (21:03)
[2022-03-18] VITALS (7 sets, daily range): BP systolic 104–189; BP diastolic 59–81; PULSE 70–76; RESP 16–22; TEMP 36.7–37; O2SAT 88–94
[2022-03-18] MEDS: Heparin Sodium,Porcine 5,000 UNIT/ML VIAL 5000 UNIT SUBCUT ×2 (03:34→12:03)
[2022-03-18 07:07] LABS: Hematocrit 24.7 % (37.0-47.0); Hemoglobin 7.6 g/dl (12.0-16.0); Mean Corpuscular HGB Conc 30.8 g/dl (31.0-35.0); Mean Corpuscular Hemoglobin 25.3 pg (27.0-33.0); Mean Corpuscular Volume 82.3 fL (80.0-98.0); Mean Platelet Volume 10.3 fL (9.4-12.3); Platelet Count 248 X10*3/uL (160-400); Red Cell Distribution Width 14.3 % (11.0-16.0); White Blood Count 9.1 X10*3/uL (4.8-10.8)
[2022-03-18 07:12] LABS: Glucose, Whole Blood 148 mg/dL (60-115)
[2022-03-18 07:45] LABS: Anion Gap 14 (12-20); Blood Urea Nitrogen 24 mg/dL (9-16); Calcium 8.9 mg/dL (8.4-10.2); Carbon Dioxide 28 mmol/L (22-29); Chloride 101 mmol/L (96-108); Creatinine Clr Calc Pharmacy 20.6; Estimated Glomerular Filt Rate 22; Glucose Random 164 mg/dL (60-115); Magnesium 1.8 mg/dL (1.6-2.6); Sodium 139 mmol/L (135-145)
[2022-03-18] MEDS: carvediloL 6.25 MG TABLET PO (08:37)
[2022-03-18] MEDS: Sucralfate 1 GM TABLET PO ×3 (08:37→16:56)
[2022-03-18] MEDS: Sodium Bicarbonate 650 MG TABLET PO (08:37)
[2022-03-18] MEDS: Clopidogrel Bisulfate 75 MG TABLET PO (08:37)
[2022-03-18] MEDS: Calcium + Vitamin D 250 MG TABLET 500 MG PO (08:37)
[2022-03-18] MEDS: Furosemide 40 MG/4 ML VIAL IVPUSH ×2 (08:37→16:56)
[2022-03-18] MEDS: Sertraline HCL 50 MG TABLET PO (08:37)
[2022-03-18] MEDS: Sodium Polystyrene Sulfon/Sorb 15 GM/60 ML ORAL.SUSP PO (08:38)
[2022-03-18] MEDS: 0.9 % Sodium Chloride Flush 3 ML SYRINGE IVFLUSH ×2 (08:38→16:56)
[2022-03-18 11:30] LABS: Glucose, Whole Blood 260 mg/dL (60-115)
[2022-03-18] MEDS: Insulin Lispro 100 UNIT/ML 3 ML VIAL SUBCUT ×2 (12:01→16:56)
--- NOTE | 2022-03-18 13:49 | MHC.CM.PN ---
Addendum entered by Enedelia Baker 03/18/22 14:29: [facility] HAS AUTH AND PT WILL DC AT 1700 [facility]. PT AND DAUGHTER AWARE OF DC TIME / PLAN Addendum entered by Enedelia Baker 03/18/22 13:59: [facility] ABLE TO OFFER PT A BED TODAY PENDING UPDATED INSURANCE AUTH Original Note: CM MET WITH PT TO DISCUSS DC PLANNING PT REPORTS SHE WANTS TO GO HOME CM INFORMED HER OF HER DAUGHTERS CONCERNS AFTER SOME DISCUSSION, SHE AGREED TO STR REFERRALS TO THE LOCAL AREA ONLY SHE REPORTS SHE IS COVID-19 VACCINATED WITH [facility] BUT NOT BOOSTED REFERRALS ARE OUT, [facility] IS REVIEWING ALL OTHER AREA SNF'S HAVE DECLINED REFERRAL CM AWAITING RESPONSE
--- NOTE | 2022-03-18 14:00 | PM.DS ---
DS: Providers Provider Date of Service: 03/18/22 Date of admission: 03/09/22 23:44 Date of discharge: 03/18/22 Primary care physician: Alexys Avila MD Consults: 03/12/22 07:24 Consult to Cardiology Routine Consulting Provider: Andrea Vides Reason for consultation: CHF exacerbation Has provider been notified: No Attending physician on discharge: Ori [facility] Discharging clinician: Keysha Sánchez DS: Diagnosis Discharge Diagnosis (1) Acute on chronic systolic and diastolic heart failure, NYHA class 3: Status: Acute DS: Summary Hospital Course Hospital Course: From H&P on day of admission 67-year-old female with a past medical history of hypertension, hyperlipidemia, diabetes, CKD, irritable bowel syndrome, GERD, gastroparesis, CHF, anemia, dysphagia presented to the hospital today with a chief complaint of diaphoresis/dizziness; noted to have low blood sugar.? Subsequently came to the ER for further evaluation.? Patient reports that this afternoon she felt diaphoretic and dizzy; when checked her sugar it was low; EMS was called in who noted her blood sugar in 40; given a dose of dextrose and water to the ER for further evaluation.? Patient reports that she has a history of gastroparesis/irritable bowel syndrome; has been not eating well for many days; also mentions she has no appetite.? Patient reports that she takes 64 units of Lantus daily.? Which she has been compliant and last took was on the morning of 03/09/2022. Denies taking any insulin sliding scale yesterday.? Denies any fever chills cough.? Denies any urinary symptoms.? Denies any chest pain or palpitations.? Review of all other systems is negative except mentioned above ER course: Per ER team patient noted to have blood sugar in 30s on presentation; given 2 ampules of dextrose but blood sugar dropped to 21; subsequently placed on D10 infusion; also given glucagon.? Hemoglobin noted to be 7.5.? Stool guaiac was negative. Patient asymptomatic.? Admitted to the hospital for further management. The patient was admitted to telemetry floor for management of acute CHF and hypoglycemia. acute/chronic HFpEF. She was diuresed with IV Lasix, will transition back to home dose of oral Lasix on discharge. She is encouraged to follow low-sodium diet and monitor weight daily. Hypoglycemia. Likely secondary to Lantus in the setting of CKD as well as decreased PO intake. Her home dose of Lantus was discontinued and she was treated with insulin sliding scale. Her pre meal insulin will be discontinued. Her dose of Lantus will be decreased from 64 units to 10 units. She should monitor her blood sugar before meals and at bedtime. She should keep track of her blood sugar and follow up with PCP. Insulin can be up titrated as needed. UTI. Initially treated with IV Zosyn. Urine culture growing Enterococcus faecium, pansensitive. Will discharge home with amoxicillin, renally dosed for 5 days hypoMagnesemia. Magnesium noted to be low. Replaced with IV magnesium. Resume outpatient oral magnesium on discharge anemia of CKD. Hb has remained stable. Stool occult negative of day of admission CKD3-4. SCr at baseline, continued on bicarbonate supplementation HTN. Norvasc and hydralazine initially held. Blood pressure has been titrating up. Will resume Norvasc. Hydralazine can be resumed as blood pressure allows Time Spent with Patient Time attestation: Total time spent providing and/or coordinating discharge services: Discharge coordination time: Greater than 30 minutes Quality: Safe Use of Opioids Does Pt have an Active Cancer Diagnosis on the Problem List?: No Quality: Stroke Does the patient have a stroke diagnosis?: No Physical Exam Vital Signs: Vital Signs: Last Vital Signs Temp 98.0 F 03/18/22 12:00 Pulse 73 03/18/22 12:00 Resp 20 03/18/22 12:00 BP 151/67 H 03/18/22 12:00 Pulse Ox 88 L 03/18/22 13:27 O2 Del Method 03/18/22 13:27 O2 Flow Rate 2 03/18/22 12:00 BMI result Body Mass Index 35.5 Const: General: cooperative, comfortable, alert and awake Nutritional Appearance: obese Orientation/consciousness: patient oriented x3 Resp: Effort & Inspection: normal respiratory effort and able to speak in complete sentences Auscultation: diminished lung sounds Cardio: Rate: regular rate Heart sounds: S1 normal heart sound present and S2 normal heart sound present GI: Inspection: No distended Palpation (GI): Soft to palpation and nontender Neuro: General: patient oriented x3 Extrem: Other: s/p L AKA DS: Data Data Completed and Pending Completed studies during hospitalization [Text1]: Procedures Dilation of Esophagus, Via Natural or Artificial Opening Endoscopic (01/31/22) Dilation of Upper Esophagus, Via Natural or Artificial Opening Endoscopic (08/16/21) Introduction of Other Thrombolytic into Peripheral Vein, Percutaneous Approach (06/05/21) Transfusion of Nonautologous Red Blood Cells into Peripheral Vein, Percutaneous Approach (12/24/20) Labs on day of discharge: Laboratory Results - last 24 hr 03/17/22 03/17/22 03/17/22 06:52 16:18 20:19 WBC RBC Hgb Hct MCV MCH MCHC RDW Plt Count MPV Absolute Nucleated RBC Nucleated RBC % (auto) Sodium Potassium Chloride Carbon Dioxide Anion Gap BUN Creatinine Estim Creat Clear Calc Estimated GFR POC Glucose 194 H 205 H Random Glucose Calcium Magnesium Procalcitonin 0.28 03/18/22 03/18/22 03/18/22 06:16 06:16 07:06 WBC 9.1 RBC 3.00 L Hgb 7.6 L Hct 24.7 L MCV 82.3 MCH 25.3 L MCHC 30.8 L RDW 14.3 Plt Count 248 MPV 10.3 Absolute Nucleated RBC 0.000 Nucleated RBC % (auto) 0.0 Sodium 139 Potassium 4.0 Chloride 101 Carbon Dioxide 28 Anion Gap 14 BUN 24 H Creatinine 2.25 H Estim Creat Clear Calc 20.6 Estimated GFR 22 POC Glucose 148 H Random Glucose 164 H Calcium 8.9 Magnesium 1.8 Procalcitonin 03/18/22 11:21 WBC RBC Hgb Hct MCV MCH MCHC RDW Plt Count MPV Absolute Nucleated RBC Nucleated RBC % (auto) Sodium Potassium Chloride Carbon Dioxide Anion Gap BUN Creatinine Estim Creat Clear Calc Estimated GFR POC Glucose 260 H Random Glucose Calcium Magnesium Procalcitonin Discharge Plan Discharge Patient Disposition: Xfer SNF Discharge Diagnosis: Hypoglycemia CHF Referrals: [facility] [Outside] - 1 Week Alexys Avila MD [Primary Care Provider] - 1 Week Discharge Medications: New amoxicillin 250 mg capsule 250 mg PO Q12H 5 Days Qty: 10 0RF Continued furosemide [Lasix] 40 mg tablet 40 mg PO BID 90 Days Qty: 180 0RF Rx Instructions: Please call and schedule cardiology appt. carvedilol 6.25 mg tablet 6.25 mg PO BID Qty: 60 5RF Rx Instructions: must administer with a meal/food - Take one tablet twice daily atorvastatin 80 mg tablet 80 mg PO BEDTIME trazodone 50 mg tablet 50 mg PO BEDTIME clopidogrel 75 mg tablet 75 mg PO DAILY aspirin 81 mg tablet,delayed release (DR/EC) 81 mg PO BEDTIME magnesium oxide 400 mg (241.3 mg magnesium) tablet 400 mg PO BID gabapentin 100 mg capsule 100 mg PO BID sertraline 50 mg tablet 50 mg PO DAILY calcium carbonate-vitamin D3 600 mg(1,500mg) -400 unit tablet 1 tab PO BID sucralfate 1 gram tablet 1 g PO QIDACHS amlodipine 10 mg Tablet 10 mg PO DAILY 30 Days Qty: 30 0RF Protocol: Hold for SBP< HOLD for SBP < : 90 famotidine 40 mg tablet 40 mg PO BID 30 Days Qty: 60 0RF sodium bicarbonate 650 mg Tablet 650 mg PO BID 30 Days Qty: 60 0RF sodium polystyrene sulfonate Powder 15 g PO DAILY 30 Days Qty: 454 0RF Changed insulin glargine [Lantus Solostar U-100 Insulin] 100 unit/mL (3 mL) insulin pen 10 unit subcut DAILY Qty: 15 0RF Held hydralazine 10 mg tablet 1 tab PO BID Hold Instructions: resume as bp allows Discontinued oxycodone 5 mg tablet 5 mg PO Q6H PRN (Reason: Pain, Severe) Qty: 20 0RF insulin lispro [Humalog KwikPen Insulin] 100 unit/mL insulin pen 8 - 12 unit subcut TIDAC Discharge Orders: Discharge Order (Routine); Ordered 03/18/22 Ordered By: Keysha Sánchez Activity on Discharge: As tolerated Stand Alone Forms: Patient Portal Discharge page Care Plan Goals: See below Health Concerns: Hypoglycemia CHF UTI Plan of Treatment: Dose of Lantus has been decreased to 10 units. Stop taking scheduled pre meal insulin for now. Check blood sugar before meals and at bedtime, acute track of blood sugar and call to schedule follow-up appointment with PCP. Insulin can be gradually increased as outpatient as needed Recommend to follow low-sodium diet for CHF and monitor daily weight. Follow up with cardiology as outpatient. Complete course of antibiotics for UTI - amoxicillin x 5 days Currently requiring 2L o2, wean oxygen as tolerated No pain medication was required during hospitalization, oxycodone has been on hold Blood pressure has been under adequate control, hydralazine on hold, can resume as blood pressure allows Call to schedule follow-up appointment with PCP Assessment: See discharge summary Discharge Date/Time: 03/18/22 20:05
[2022-03-18 15:09] LABS: COVID-19 Test Negative (Negative)
[2022-03-18 16:29] LABS: Glucose, Whole Blood 179 mg/dL (60-115)
--- NOTE | 2022-03-21 10:20 | P.CDIR_ITS ---
Retrospective Query PHYSICIAN'S DOCUMENTATION REQUEST Date of Query: 03/21/22 1020 Patient Name: Debbie Guerra Admit Date: 03/09/22 Dear Doctor, A review of the medical record indicates additional documentation may be needed. Please review below and update the documentation accordingly. Clinical Indicators: The following clinical information was noted in the record: Risk Factors/Clinical Indicators/Treatments CKD 3/4 - SCr at baseline, continued on bicarbonate supplementation. Query 03/14 - Response - CKD 4 Please clarify which of the following accurately represents the patient's renal status: * Chronic kidney disease Stage 3 * Chronic kidney disease Stage 4 * ESRD - CKD V now requiring permanent dialysis and/or transplant * Other (please specify) * Unable to determine Criteria for GIL* Stages of Chronic Kidney Disease* 1. Increase in serum creatinine by ? 0.3 mg/dL Level Description GFR (?26.5 micromol/L) within 48 hours, or G1 Normal or High > 90 2. Increase in serum creatinine to ?1.5 times baseline, G2 Mildly decreased 60 ? 89 which is known or presumed to have occurred within 7 days, or G3a Mildly to moderately decreased 45 ? 59 3. Urine volume <0.5 mL/kg/hour for six hours G3b Moderately to severely decreased 30 - 44 G4 Severely decreased 15 ? 29 G5 Kidney failure < 15 *Source: Kidney Disease: Improving Global Outcomes (KDIGO) 2012 Use of terms such as suspected, likely, concern for, or probable (associated with a specific diagnosis that is being evaluated, monitored, or treated as if it exists) are acceptable and can be coded in the inpatient setting, when documented at the time of discharge. Thank you, Kylie Alonso [facility], CDIS Extension: [phone] Please use your independent medical judgment in providing your response. THIS QUERY IS PART OF THE PERMANENT MEDICAL RECORD
[2022-03-21 17:32] LABS: Chlorpropamide None Detected; Glimepiride None Detected; Glipizide None Detected; Glyburide None Detected; Nateglinide None Detected; Pioglitazone None Detected; Repaglinide None Detected; Rosiglitazone None Detected; Tolazamide None Detected; Tolbutamide None Detected
== END 2022-03-18 20:05 | disposition skilled nursing facility (03) | DRG 637 ==
LOC: HO.ED 23:24 → HO.EDOVER 23:51 → HO.IMC 03-10 13:02
PROVIDERS: Family Medicine; Hospitalist; Nurse Practitioner Family; Admitting Provider Hospitalist; Emergency Provider Internal Medicine; PCP Internal Medicine; Responsible Provider Physician Assistant Medical; Visit Provider Internal Medicine
DX: E11.649 Type 2 diabetes mellitus with hypoglycemia without coma (principal); I50.33 Acute on chronic diastolic (congestive) heart failure; I13.0 Hypertensive heart and chronic kidney disease with heart failure and stage 1 through stage 4 chronic kidney disease, or unspecified chronic kidney disease; N39.0 Urinary tract infection, site not specified; Z66 Do not resuscitate; N18.4 Chronic kidney disease, stage 4 (severe); E11.22 Type 2 diabetes mellitus with diabetic chronic kidney disease; E83.42 Hypomagnesemia; E78.5 Hyperlipidemia, unspecified; K21.9 Gastro-esophageal reflux disease without esophagitis; D63.1 Anemia in chronic kidney disease; F32.A Depression, unspecified; B95.2 Enterococcus as the cause of diseases classified elsewhere; I34.0 Nonrheumatic mitral (valve) insufficiency; F41.9 Anxiety disorder, unspecified; E66.3 Overweight; Z86.73 Personal history of transient ischemic attack (TIA), and cerebral infarction without residual deficits; Z89.512 Acquired absence of left leg below knee; Z68.35 Body mass index [BMI] 35.0-35.9, adult; Z20.822 Contact with and (suspected) exposure to COVID-19; Z91.040 Latex allergy status; Z79.4 Long term (current) use of insulin; Z79.82 Long term (current) use of aspirin; Z79.899 Other long term (current) drug therapy
CPT/HCPCS: 36415; 70450; 71045; 71250; 76705; 80048; 80053; 80076; 80337; 81001; 82272; 82947; 83690; 83735; 83880; 84145; 85025; 85027; 86850; 86900; 86901; 87086; 87088; 87186; 87635; 99285; J0696; J1610; J1940; J2270; J2543; J3475

== ENCOUNTER 2022-03-25 03:23 | Inpatient (IN) | payer OTHER, SELFPAY ==
--- NOTE | ~2022-03-25 | US_ITS ---
EXAMINATION: US CHEST CLINICAL INFORMATION: Check for pleural effusion COMPARISON: Previous chest x-ray most recent 03/25/[address] 03/17/2022 TECHNIQUE: Grayscale imaging of the left chest using a curved transducer FINDINGS: There is a very small left pleural effusion measuring maximum 2 cm in thickness. This may be loculated. US/US chest IMPRESSION: Very small left pleural effusion. This may be loculated.
--- NOTE | ~2022-03-25 | XR_ITS ---
EXAMINATION: XR CHEST CLINICAL INFORMATION: Cough. COMPARISON: CT chest 03/17/2022 chest radiograph 03/15/2022 TECHNIQUE: Frontal view of the chest was obtained. FINDINGS: Moderate blunting of the left costophrenic sulcus is noted. Mild blunting of the right costophrenic sulcus is visualized. No pneumothoraces noted. Dense airspace type opacity is present in the left lung base. Course horizontally oriented reticular opacities are present in the right middle and left lower lung zones. The cardiac silhouette is partially obscured from visualization by the left base opacities. XR/XR chest 1V IMPRESSION: *Moderate left pleural effusion increased in size compared with 03/15/2022. *Left base atelectasis and/or consolidation increased compared with 03/15/2022. Findings are suspicious for pneumonia. *Right lung linear atelectasis.
[2022-03-25 03:43] VITALS: BP 136/48; PULSE 58; TEMP 36.6; O2SAT 98; BMI 33.4
--- NOTE | 2022-03-25 03:53 | ECG_ITS ---
Test Reason : UPPER RESPIRATORY Blood Pressure : / mmHG Vent. Rate : 058 BPM Atrial Rate : 058 BPM P-R Int : 158 ms QRS Dur : 126 ms QT Int : 526 ms P-R-T Axes : 067 059 253 degrees QTc Int : 516 ms Sinus bradycardia Non-specific intra-ventricular conduction block Cannot rule out Anterior infarct , age undetermined T wave abnormality, consider inferolateral ischemia Abnormal ECG When compared with ECG of 22-FEB-2022 10:25, Questionable change in QRS axis T wave inversion less evident in Lateral leads Referred By: Cecilia Church Electronically Signed By:LUCRECIA PILLAI MD
--- NOTE | 2022-03-25 03:54 | ED_ITS ---
HPI - General Adult General Chief complaint: Upper Respiratory Symptoms Stated complaint: COUGH FROM SNF Time Seen by Provider: 03/25/22 03:47 Source: patient and EMS Mode of arrival: EMS Limitations: no limitations History of Present Illness HPI narrative: patient comes from a group home facility. Seems that earlier today, patient was screaming in Cambodian, they could not understand her and they sent her to the emergency room via EMS. The only thing that the staff reports that has been abnormal, is that the patient has been coughing more than usual. On arrival, patient calm, cooperative, states that she has had cough for about a month. Patient states she is on oxygen the whole time. Has no other complaints. Denies chest pain, no abdominal pain Related Data Home Medications Medication Instructions Recorded Confirmed aspirin 81 mg tablet,delayed 81 mg PO BEDTIME 06/20/21 03/10/22 release atorvastatin 80 mg tablet 80 mg PO BEDTIME 06/20/21 03/10/22 calcium carbonate 600 mg-vitamin 1 tab PO BID 06/20/21 03/10/22 D3 10 mcg (400 unit) tablet clopidogrel 75 mg tablet 75 mg PO DAILY 06/20/21 03/10/22 gabapentin 100 mg capsule 100 mg PO BID 06/20/21 03/10/22 magnesium oxide 400 mg (241.3 mg 400 mg PO BID 06/20/21 03/10/22 magnesium) tablet sertraline 50 mg tablet 50 mg PO DAILY 06/20/21 03/10/22 trazodone 50 mg tablet 50 mg PO BEDTIME 06/20/21 03/10/22 hydralazine 10 mg tablet 1 tab PO BID 01/31/22 03/10/22 sucralfate 1 gram tablet 1 g PO QIDACHS 02/22/22 03/10/22 Previous Rx's Medication Instructions Recorded furosemide 40 mg tablet (Lasix) 40 mg PO BID 90 days #180 tabs 02/18/22 carvedilol 6.25 mg tablet 6.25 mg PO BID #60 tabs 02/21/22 amlodipine 10 mg tablet 10 mg PO DAILY 30 days #30 tabs 03/03/22 famotidine 40 mg tablet 40 mg PO BID 30 days #60 tabs 03/03/22 sodium bicarbonate 650 mg tablet 650 mg PO BID 30 days #60 tabs 03/03/22 sodium polystyrene sulfonate 15 g PO DAILY 30 days #454 grams 03/03/22 amoxicillin 250 mg capsule 250 mg PO Q12H 5 days #10 caps 03/18/22 insulin glargine 100 unit/mL (3 10 unit (0.1 mL) subcut DAILY #15 03/18/22 mL) subcutaneous pen (Lantus mL Solostar U-100 Insulin) Allergies Allergy/AdvReac Type Severity Reaction Status Date / Time latex [LATEX] Allergy Intermediate ITCHY Verified 06/29/21 13:08 Review of Systems Review of Systems: Constitutional : No Weight loss, No Fever, No Chills, No Night Sweats, No Fatigue, No Malaise ENT/Mouth : No Hearing loss, No Ear Pain, No Nasal Congestion, No Sinus Pain, No Hoarseness, No sore throat, No Rhinorrhea, No Swallowing Difficulty Eyes: No Eye Pain, No Swelling, No Redness, No Foreign Body, No Discharge, No Vision Changes Cardiovascular : No Chest Pain, No SOB, No Dyspnea on Exertion, No Orthopnea, No Edema, No Palpitations Respiratory : complaining about cough, complaining of chronic dyspnea Gastrointestinal : No Nausea, No Vomiting, No Diarrhea, No Constipation, No abdominal Pain, No Hematochezia, No Melena Genitourinary : no irregular bleeding, No Dysuria, No Urinary Frequency, No Hematuria, No Urinary Incontinence, No Urgency, No Flank Pain, No Urinary Flow Changes, No Hesitancy Musculoskeletal : No joint pain, No Myalgias, No Joint Swelling Skin : No Skin Lesions, No rash Neuro : No Weakness, No Numbness, No Paresthesias, No Loss of Consciousness, No Dizziness, No Headache Psych : No Anxiety/Panic, No Depression, No SI/HI/AH/VH, No Social Issues, Heme/Lymph: No Bruising, No Bleeding,No Lymphadenopathy Endocrine : No Polyuria, No Polydipsia, No Temperature Intolerance PMFSH Past Medical History Medical History Acute on chronic renal failure Acute respiratory failure with hypoxia Anemia Blister of finger without infection Cholecystectomy planned CKD (chronic kidney disease) CKD (chronic kidney disease), stage IV Congestive heart failure Diabetes Diabetes mellitus Elevated d-dimer Essential hypertension Gastroparesis GERD (gastroesophageal reflux disease) Hand pain Hernia HLD (hyperlipidemia) HTN (hypertension) Hypomagnesemia Irritable bowel syndrome with diarrhea Lightheadedness Low blood pressure Non-ST elevated myocardial infarction Nonischemic cardiomyopathy Other and unspecified hyperlipidemia Pharyngoesophageal dysphagia Surgical History H/O: hysterectomy History of esophagogastroduodenoscopy (EGD) Hx of colonoscopy Hx of eye surgery Family History Family History Father Lung cancer Mother Diabetes HTN (hypertension) Heart disease Sister Diabetes Heart disease Brother Heart disease Son Diabetes Daughter Diabetes Social History Social History Household Members: Family Household Members Other:: lives with dtr and grandson Housing: Unknown / Unable to assess Do you presently have visiting nurse or other home services: No Unable to assess alcohol history related to: Unable to respond Alcohol intake: never Patient Tobacco Use Status: Never used Tobacco Second Hand Smoke Exposure: No Advance Directives: Yes Advance Directives Information Provided: No Advance Directives on File: No Advance Directives Date on File: 02/02/22 service: No Current occupational status: disabled Physical Exam ED Vital Signs: Vital Signs - 24 hr 03/25/22 03:43 03/25/22 06:06 Temperature 97.8 F Pulse Rate 58 55 Respiratory Rate 20 Blood Pressure 136/48 L 103/55 L Pulse Oximetry 98 99 Oxygen Delivery Method Nasal Cannula Nasal Cannula Oxygen Flow Rate 2 BMI result Body Mass Index 33.4 Const Other: Appearance: Alert. Oriented X3. No acute distress. Eyes: Pupils equal, round and reactive to light. ENT: Pharynx normal. Neck: Normal inspection. Neck supple. No lymph nodes noted. No crepitus CVS: Normal heart rate and rhythm. Pulses normal. Normal S1 and S2 Respiratory: No respiratory distress. on 3 L, has a wet cough, bilateral rales Abdomen: Soft and nontender. No rigidity. No distention. Skin: Skin warm and dry. Normal skin color. Normal skin turgor. 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 No motor deficit. No sensory deficit. Moving all extremities. No slurred speech. CN 2 through 12 grossly intact Psych: calm, cooperative, normal affect Course Course Course Narrative: Patient is a hard stick, blood was obtained until 05:00 patient breathing comfortably on 3 L, all of the labs and imaging pending. at this time, 558 a.m., chest x-ray shows moderate left pleural effusion compared in size, left basal atelectasis increased in size, possible pneumonia. Patient will be treated with antibiotics. However, patient has significant heart failure. At this time, sepsis not suspected. creatinine is above baseline, patient is being gently hydrated. patient is positive for COVID-19. Patient states that she is not immunized Medical Decision Making Lab Data Result diagrams: 03/25/22 05:02 03/25/22 05:02 Labs: Lab Results 03/25/22 03/25/22 03/25/22 Range/Units 05:02 05:02 05:02 WBC 8.6 (4.8-10.8) X10*3/uL RBC 2.90 L (4.20-5.50) X10*6/uL Hgb 7.3 L (12.0-16.0) g/dl Hct 24.0 L (37.0-47.0) % MCV 82.8 (80.0-98.0) fL MCH 25.2 L (27.0-33.0) pg MCHC 30.4 L (31.0-35.0) g/dl RDW 14.8 (11.0-16.0) % Plt Count 197 (160-400) X10*3/uL MPV 10.5 (9.4-12.3) fL Immature Gran % (Auto) 0.8 H (0.0-0.4) % Neut % (Auto) 64.1 (45-73) % Lymph % (Auto) 25.3 (20-40) % [place] % (Auto) 6.3 (2-11) % Eos % (Auto) 3.4 (0-4) % Baso % (Auto) 0.1 (0-2) % Lymph # (Auto) 2.2 (1.2-4.9) X10*3/uL [place] # (Auto) 0.5 (0.1-1.2) X10*3/uL Eos # (Auto) 0.3 (0.0-0.4) X10*3/uL Baso # (Auto) 0.0 (0.0-0.2) X10*3/uL Abs Immat Gran (auto) 0.07 H (0.00-0.03) X10*3/uL Absolute Neuts (auto) 5.5 (2.0-8.3) x10*3/uL Absolute Nucleated RBC 0.000 (0.0-0.012) X10*3/uL Nucleated RBC % (auto) 0.0 (0.0-0.2) /100WBC PT 13.6 H (9.9-13.0) SEC INR 1.2 H (0.9-1.1) VBG pH (7.32-7.43) VBG pCO2 mmHg VBG pO2 mmHg VBG HCO3 (22-26) mmol/L VBG O2 Saturation % VBG Base Excess mmol/L Sodium 135 (135-145) mmol/L Potassium 4.5 (3.3-5.1) mmol/L Chloride 100 (96-108) mmol/L Carbon Dioxide 26 (22-29) mmol/L Anion Gap 14 (12-20) BUN 49 H D (9-16) mg/dL Creatinine 4.39 H* (0.5-1.4) mg/dL Estim Creat Clear Calc 10.2 Estimated GFR 10 Random Glucose 266 H (60-115) mg/dL Lactic Acid (0.5-2.0) mmol/L Calcium 7.9 L D (8.4-10.2) mg/dL Total Bilirubin 0.3 (0.0-1.0) mg/dL Direct Bilirubin 0.2 (0.0-0.5) mg/dL AST 14 (5-31) U/L ALT 13 (0-31) U/L Alkaline Phosphatase 164 H D (39-117) U/L Troponin I High Sens (<3.5-17.0) ng/L B-Natriuretic Peptide (<100) pg/mL Total Protein 6.8 (6.5-8.0) g/dL Albumin 3.2 L (3.5-5.0) g/dL COVID-19 (LUCIUS) (Negative) COVID-19 Clin Com 03/25/22 03/25/22 03/25/22 Range/Units 05:02 05:02 05:02 WBC (4.8-10.8) X10*3/uL RBC (4.20-5.50) X10*6/uL Hgb (12.0-16.0) g/dl Hct (37.0-47.0) % MCV (80.0-98.0) fL MCH (27.0-33.0) pg MCHC (31.0-35.0) g/dl RDW (11.0-16.0) % Plt Count (160-400) X10*3/uL MPV (9.4-12.3) fL Immature Gran % (Auto) (0.0-0.4) % Neut % (Auto) (45-73) % Lymph % (Auto) (20-40) % Kenton % (Auto) (2-11) % Eos % (Auto) (0-4) % Baso % (Auto) (0-2) % Lymph # (Auto) (1.2-4.9) X10*3/uL Kenton # (Auto) (0.1-1.2) X10*3/uL Eos # (Auto) (0.0-0.4) X10*3/uL Baso # (Auto) (0.0-0.2) X10*3/uL Abs Immat Gran (auto) (0.00-0.03) X10*3/uL Absolute Neuts (auto) (2.0-8.3) x10*3/uL Absolute Nucleated RBC (0.0-0.012) X10*3/uL Nucleated RBC % (auto) (0.0-0.2) /100WBC PT (9.9-13.0) SEC INR (0.9-1.1) VBG pH (7.32-7.43) VBG pCO2 mmHg VBG pO2 mmHg VBG HCO3 (22-26) mmol/L VBG O2 Saturation % VBG Base Excess mmol/L Sodium (135-145) mmol/L Potassium (3.3-5.1) mmol/L Chloride (96-108) mmol/L Carbon Dioxide (22-29) mmol/L Anion Gap (12-20) BUN (9-16) mg/dL Creatinine (0.5-1.4) mg/dL Estim Creat Clear Calc Estimated GFR Random Glucose (60-115) mg/dL Lactic Acid 1.2 (0.5-2.0) mmol/L Calcium (8.4-10.2) mg/dL Total Bilirubin (0.0-1.0) mg/dL Direct Bilirubin (0.0-0.5) mg/dL AST (5-31) U/L ALT (0-31) U/L Alkaline Phosphatase (39-117) U/L Troponin I High Sens 19.6 H D (<3.5-17.0) ng/L B-Natriuretic Peptide 1687 H (<100) pg/mL Total Protein (6.5-8.0) g/dL Albumin (3.5-5.0) g/dL COVID-19 (LUCIUS) Positive A (Negative) COVID-19 Clin Com See Note 03/25/22 Range/Units 05:06 WBC (4.8-10.8) X10*3/uL RBC (4.20-5.50) X10*6/uL Hgb (12.0-16.0) g/dl Hct (37.0-47.0) % MCV (80.0-98.0) fL MCH (27.0-33.0) pg MCHC (31.0-35.0) g/dl RDW (11.0-16.0) % Plt Count (160-400) X10*3/uL MPV (9.4-12.3) fL Immature Gran % (Auto) (0.0-0.4) % Neut % (Auto) (45-73) % Lymph % (Auto) (20-40) % Kenton % (Auto) (2-11) % Eos % (Auto) (0-4) % Baso % (Auto) (0-2) % Lymph # (Auto) (1.2-4.9) X10*3/uL [place] # (Auto) (0.1-1.2) X10*3/uL Eos # (Auto) (0.0-0.4) X10*3/uL Baso # (Auto) (0.0-0.2) X10*3/uL Abs Immat Gran (auto) (0.00-0.03) X10*3/uL Absolute Neuts (auto) (2.0-8.3) x10*3/uL Absolute Nucleated RBC (0.0-0.012) X10*3/uL Nucleated RBC % (auto) (0.0-0.2) /100WBC PT (9.9-13.0) SEC INR (0.9-1.1) VBG pH 7.37 (7.32-7.43) VBG pCO2 39 mmHg VBG pO2 55 mmHg VBG HCO3 23 (22-26) mmol/L VBG O2 Saturation 82.0 % VBG Base Excess -1.7 mmol/L Sodium (135-145) mmol/L Potassium (3.3-5.1) mmol/L Chloride (96-108) mmol/L Carbon Dioxide (22-29) mmol/L Anion Gap (12-20) BUN (9-16) mg/dL Creatinine (0.5-1.4) mg/dL Estim Creat Clear Calc Estimated GFR Random Glucose (60-115) mg/dL Lactic Acid (0.5-2.0) mmol/L Calcium (8.4-10.2) mg/dL Total Bilirubin (0.0-1.0) mg/dL Direct Bilirubin (0.0-0.5) mg/dL AST (5-31) U/L ALT (0-31) U/L Alkaline Phosphatase (39-117) U/L Troponin I High Sens (<3.5-17.0) ng/L B-Natriuretic Peptide (<100) pg/mL Total Protein (6.5-8.0) g/dL Albumin (3.5-5.0) g/dL COVID-19 (LUCIUS) (Negative) COVID-19 Clin Com Critical Care Time Critical Care Time Critical Care Time: Yes Total Critical Care Time: 60 Attestation: I have personally provided critical care time. Time includes review of lab data, radiology results, discussion with consultants, and monitoring for potential decompensation. Intervention performed as documented. Discharge Plan Discharge Clinical Impression: Pneumonia, Acute worsening of stage 4 chronic kidney disease, COVID-19 Patient Disposition: Admitted As Inpatient
[2022-03-25 05:08] LABS: MANUAL DIFF FLAG NO
[2022-03-25 05:09] LABS: Basophils Percent Auto 0.1 % (0-2); Eosinophils Absolute Auto 0.3 X10*3/uL (0.0-0.4); Eosinophils Percent Auto 3.4 % (0-4); Hemoglobin 7.3 g/dl (12.0-16.0); Imm Gran Abs Auto 0.07 X10*3/uL (0.00-0.03); Imm Gran Pct Auto 0.8 % (0.0-0.4); Lymphocytes Absolute Auto 2.2 X10*3/uL (1.2-4.9); Lymphocytes Percent Auto 25.3 % (20-40); Mean Corpuscular HGB Conc 30.4 g/dl (31.0-35.0); Mean Corpuscular Hemoglobin 25.2 pg (27.0-33.0); Mean Corpuscular Volume 82.8 fL (80.0-98.0); Mean Platelet Volume 10.5 fL (9.4-12.3); Monocytes Absolute Auto 0.5 X10*3/uL (0.1-1.2); Monocytes Percent Auto 6.3 % (2-11); Neutrophils Absolute Auto 5.5 x10*3/uL (2.0-8.3); Neutrophils Percent Auto 64.1 % (45-73); Platelet Count 197 X10*3/uL (160-400); Red Cell Distribution Width 14.8 % (11.0-16.0); White Blood Count 8.6 X10*3/uL (4.8-10.8)
[2022-03-25 05:12] LABS: Venous Blood Gas Refer to POC result
[2022-03-25 05:12] LABS: VBG Base Excess -1.7 mmol/L; VBG HCO3 23 mmol/L (22-26); VBG pCO2 39 mmHg; VBG pH 7.37 (7.32-7.43); VBG pO2 55 mmHg
[2022-03-25 05:14] LABS: INTERNATIONAL NORM RATIO 1.2 (0.9-1.1); Prothrombin Time 13.6 SEC (9.9-13.0)
[2022-03-25 05:28] LABS: Lactic Acid 1.2 mmol/L (0.5-2.0)
[2022-03-25 05:33] LABS: Alanine Aminotransferase 13 U/L (0-31); Albumin Level 3.2 g/dL (3.5-5.0); Alkaline Phosphatase 164 U/L (39-117); Anion Gap 14 (12-20); Aspartate Amino Transferase 14 U/L (5-31); Bilirubin Direct 0.2 mg/dL (0.0-0.5); Bilirubin Total 0.3 mg/dL (0.0-1.0); Blood Urea Nitrogen 49 mg/dL (9-16); Calcium 7.9 mg/dL (8.4-10.2); Carbon Dioxide 26 mmol/L (22-29); Chloride 100 mmol/L (96-108); Creatinine Clr Calc Pharmacy 10.2; Estimated Glomerular Filt Rate 10; Glucose Random 266 mg/dL (60-115); Potassium 4.5 mmol/L (3.3-5.1); Sodium 135 mmol/L (135-145); Total Protein 6.8 g/dL (6.5-8.0)
[2022-03-25 05:34] LABS: B Type Natriuretic Peptide 1687 pg/mL (<100); Troponin-I High Sensitivity 19.6 ng/L (<3.5-17.0)
[2022-03-25 06:03] LABS: COVID-19 Test Positive (Negative)
[2022-03-25 06:06] VITALS: BP 103/55; PULSE 55; RESP 20; O2SAT 99
[2022-03-25] MEDS: cefTRIAXone sodium 1 GM in 0.9 % Sodium Chloride 50 ML IV (06:28)
[2022-03-25] MEDS: dexAMETHasone sod phosphate 4 MG/ML VIAL 6 MG IVPUSH (06:31)
[2022-03-25] MEDS: 0.9 % Sodium Chloride 1,000 ML 80 ML IVCONT (06:50)
[2022-03-25] MEDS: Azithromycin 500 MG in 0.9 % Sodium Chloride 250 ML 125 MG IV (06:50)
[2022-03-25 08:40] VITALS: BP 116/47; PULSE 57; RESP 24; TEMP 36.4; O2SAT 95; O2SAT 98
[2022-03-25 09:05] LABS: Glucose, Whole Blood 218 mg/dL (60-115)
--- NOTE | 2022-03-25 09:08 | PC.NURSE ---
Pt alert oriented.Frequent dry coughing. Pt c/o tightness in chest tachypneic, breathing at 24 breaths per minute. oxygen sat 95% on 3L NS, Pt baseline.Lung sounds congested course upper lobes. Right buttock with slight superficial breakdown.
--- NOTE | 2022-03-25 09:18 | PHA.MEDREC ---
Pharmacy Consult ? Medication Reconciliation Pharmacy has completed the medication reconciliation. List obtained with Meaghan from [facility].
--- NOTE | 2022-03-25 10:59 | PM.IMHP ---
History of Present Illness Date of Service: 03/25/22 Attending physician on admission: Gustavo Treviño Chief Complaint: cough This is a 67-year-old [place]an speaking female with multiple medical issues who presents to the emergency department from SNF due to cough. She was admitted to the hospital from March 09 to March 18 initially for hypoglycemia as well as acute CHF. She was discharged to senior care facility on the . She reports that she has continued to have coughing which is primarily dry in nature. She denies any fever, chills. She reports pain in her chest especially with coughing, denies pleuritic component of pain. She denies shortness of breath at this time. She was tested for COVID-19 on the day of her discharge it was negative at that time. Today in the emergency department her COVID-19 test is positive. Chest x-ray shows moderate left pleural effusion which is increased when compared to previous as well as left base atelectasis or consolidation suspicious for pneumonia. She is currently afebrile, lab work reveals no leukocytosis. Creatinine was elevated at 4.39. Troponin indeterminate and 19.6, BNP elevated at 1687. She was treated with IV Lasix, IV Decadron, IV ceftriaxone and azithromycin. COVID-19 vaccination status-has received single dose of Jose [employer] Jose Review of Systems Constitutional: Constitutional: Denies chills and Denies fever(s) Cardiovascular: Cardiovascular: Reports chest pain, Denies palpitations and Denies dyspnea Respiratory: Respiratory: Reports cough, Denies pain on inspiration and Denies dyspnea Gastrointestinal: Gastrointestinal: Denies abdominal pain, Denies diarrhea, Denies nausea and Denies vomiting Endocrine: Endocrine: Denies palpitations FOR[facility], [facility] Medical History Acute on chronic renal failure Acute respiratory failure with hypoxia Anemia Blister of finger without infection Cholecystectomy planned CKD (chronic kidney disease) CKD (chronic kidney disease), stage IV Congestive heart failure Diabetes Diabetes mellitus Elevated d-dimer Essential hypertension Gastroparesis GERD (gastroesophageal reflux disease) Hand pain Hernia HLD (hyperlipidemia) HTN (hypertension) Hypomagnesemia Irritable bowel syndrome with diarrhea Lightheadedness Low blood pressure Non-ST elevated myocardial infarction Nonischemic cardiomyopathy Other and unspecified hyperlipidemia Pharyngoesophageal dysphagia Family History Father Lung cancer Mother Diabetes HTN (hypertension) Heart disease Sister Diabetes Heart disease Brother Heart disease Son Diabetes Daughter Diabetes Surgical History H/O: hysterectomy History of esophagogastroduodenoscopy (EGD) Hx of colonoscopy Hx of eye surgery Social History Household Members: Family Household Members Other:: lives with dtr and grandson Housing: Unknown / Unable to assess Do you presently have visiting nurse or other home services: No Unable to assess alcohol history related to: Unable to respond Alcohol intake: never Patient Tobacco Use Status: Never used Tobacco Second Hand Smoke Exposure: No Use of substances other than those prescribed or required for medical reasons: No Advance Directives: Yes Advance Directives Information Provided: No Advance Directives on File: No Advance Directives Date on File: 02/02/22 service: No Current occupational status: disabled Meds Allergies Allergy/AdvReac Type Severity Reaction Status Date / Time latex [LATEX] Allergy Intermediate ITCHY Verified 06/29/21 13:08 Active Medications: Current Medications Acetaminophen (Acetaminophen 325 Mg Tablet) 650 mg PO Q6H PRN PRN Reason: Pain, Mild (Pain Scale 1-3) Dexamethasone Sodium Phosphate (Dexamethasone Sod Phosphate 4 Mg/Ml Vial) 6 mg IVPUSH DAILY [facility] Dextrose (Dextrose 50 % 25 Gm/50 Ml Syringe) 25 gm IVPUSH Q15M PRN; Protocol PRN Reason: per Hypoglycemia Standing Ord. Docusate Sodium (Docusate Sodium 100 Mg Capsule) 100 mg PO DAILY PRN PRN Reason: Constipation Glucose (Glucose Gel 15 Gm Gel..Gram.) 15 gm PO Q15M PRN; Protocol PRN Reason: per Hypoglycemia Standing Ord. Heparin Sodium (Porcine) (Heparin Sodium,Porcine 5,000 Unit/Ml Vial) 5,000 unit SUBCUT Q12H [facility] Sodium Chloride (Ns) 1,000 mls @ 80 mls/hr IVCONT .[id number] [facility] Last Admin: 03/25/22 06:50 Dose: 80 mls/hr Insulin Human Lispro (Insulin Lispro 100 Unit/Ml 3 Ml Vial) 0 unit SUBCUT QIDACHS [facility]ATT[facility]; Protocol Sodium Chloride (0.9 % Sodium Chloride Flush 3 Ml Syringe) [facility] Medications Medication Instructions Recorded Confirmed Last Taken Type aspirin 81 mg tablet,delayed 81 mg PO BEDTIME 06/20/21 03/25/22 01/30/22 History release atorvastatin 80 mg tablet 80 mg PO BEDTIME 06/20/21 03/25/22 01/30/22 History calcium carbonate 600 mg-vitamin 1 tab PO BID 06/20/21 03/25/22 01/30/22 History D3 10 mcg (400 unit) tablet clopidogrel 75 mg tablet 75 mg PO DAILY 06/20/21 03/25/22 01/30/22 History magnesium oxide 400 mg (241.3 mg 400 mg PO BID 06/20/21 03/25/22 01/30/22 History magnesium) tablet sertraline 50 mg tablet 50 mg PO DAILY 06/20/21 03/25/22 01/30/22 History trazodone 50 mg tablet 50 mg PO BEDTIME 06/20/21 03/25/22 01/30/22 History insulin glargine 100 unit/mL (3 10 unit subcut DAILY 03/25/22 03/25/22 Unknown History mL) subcutaneous pen (Lantus Solostar U-100 Insulin) Physical Exam Vital Signs and Narrative: Vital Signs: Last Vital Signs Temp 97.5 F 03/25/22 08:40 Pulse 57 03/25/22 08:40 Resp 24 H 03/25/22 08:40 BP 116/47 L 03/25/22 08:40 Pulse Ox 98 03/25/22 08:40 O2 Del Method 03/25/22 08:40 O2 Flow Rate 3 03/25/22 08:40 Oxygen Flow Rate 3 03/25/22 08:40 BMI result Body Mass Index 33.4 Const: General: cooperative, comfortable, alert and awake Nutritional Appearance: overweight Resp: Effort & Inspection: normal respiratory effort and able to speak in complete sentences Auscultation: crackles (b/l bases) Cardio: Rate: regular rate Heart sounds: S1 normal heart sound present and S2 normal heart sound present GI: Inspection: No distended Palpation (GI): Soft to palpation and nontender Extrem: Other: s/p L BKA, no edema right leg Results Labs CBC and Chem 7: 03/25/22 05:02 03/25/22 05:02 Labs: Laboratory Results - last 24 hr 03/25/22 03/25/22 03/25/22 05:02 05:02 05:02 MCV 82.8 MCH 25.2 L MCHC 30.4 L RDW 14.8 Plt Count 197 MPV 10.5 Immature Gran % (Auto) 0.8 H Neut % (Auto) 64.1 Lymph % (Auto) 25.3 [place] % (Auto) 6.3 Eos % (Auto) 3.4 Baso % (Auto) 0.1 Lymph # (Auto) 2.2 [place] # (Auto) 0.5 Eos # (Auto) 0.3 Baso # (Auto) 0.0 Abs Immat Gran (auto) 0.07 H Absolute Neuts (auto) 5.5 Absolute Nucleated RBC 0.000 Nucleated RBC % (auto) 0.0 PT 13.6 H INR 1.2 H VBG pH VBG pCO2 VBG pO2 VBG HCO3 VBG O2 Saturation VBG Base Excess Anion Gap 14 Estim Creat Clear Calc 10.2 Estimated GFR 10 POC Glucose Random Glucose 266 H Lactic Acid Calcium 7.9 L D Total Bilirubin 0.3 Direct Bilirubin 0.2 AST 14 ALT 13 Alkaline Phosphatase 164 H D Troponin I High Sens B-Natriuretic Peptide Total Protein 6.8 Albumin 3.2 L COVID-19 (LUCIUS) COVID-Airtime 03/25/22 03/25/22 03/25/22 05:02 05:02 05:02 MCV MCH MCHC RDW Plt Count MPV Immature Gran % (Auto) Neut % (Auto) Lymph % (Auto) [place] % (Auto) Eos % (Auto) Baso % (Auto) Lymph # (Auto) [place] # (Auto) Eos # (Auto) Baso # (Auto) Abs Immat Gran (auto) Absolute Neuts (auto) Absolute Nucleated RBC Nucleated RBC % (auto) PT INR VBG pH VBG pCO2 VBG pO2 VBG HCO3 VBG O2 Saturation VBG Base Excess Anion Gap Estim Creat Clear Calc Estimated GFR POC Glucose Random Glucose Lactic Acid 1.2 Calcium Total Bilirubin Direct Bilirubin AST ALT Alkaline Phosphatase Troponin I High Sens 19.6 H D B-Natriuretic Peptide 1687 H Total Protein Albumin COVID-19 (LUCIUS) Positive A COVID-19 Clin Com See Note 03/25/22 03/25/22 05:06 08:34 MCV MCH MCHC RDW Plt Count MPV Immature Gran % (Auto) Neut % (Auto) Lymph % (Auto) [place] % (Auto) Eos % (Auto) Baso % (Auto) Lymph # (Auto) [place] # (Auto) Eos # (Auto) Baso # (Auto) Abs Immat Gran (auto) Absolute Neuts (auto) Absolute Nucleated RBC Nucleated RBC % (auto) PT INR VBG pH 7.37 VBG pCO2 39 VBG pO2 55 VBG HCO3 23 VBG O2 Saturation 82.0 VBG Base Excess -1.7 Anion Gap Estim Creat Clear Calc Estimated GFR POC Glucose 218 H Random Glucose Lactic Acid Calcium Total Bilirubin Direct Bilirubin AST ALT Alkaline Phosphatase Troponin I High Sens B-Natriuretic Peptide Total Protein Albumin COVID-19 (LUCIUS) COVID-19 Clin Com Imaging Radiologist's Impressions: Impressions Chest X-Ray 03/25/22 04:00 IMPRESSION: *Moderate left pleural effusion increased in size compared with 03/15/2022. *Left base atelectasis and/or consolidation increased compared with 03/15/2022. Findings are suspicious for pneumonia. *Right lung linear atelectasis. Assessment and Plan (1) COVID-19: Status: Acute Plan This is a 67-year-old [place]an-speaking female with history of NICM, CKD3-4, GERD, HFpEF, anemia, HTN, HLD, DM with gastroparesis, left BKA, recent admission for hypoglycemia and CHF who presents from SNF with increasing cough found to have pneumonia secondary to COVID-19 and GIL Acute respiratory failure with hypoxia Secondary to pneumonia from COVID 19 and CHF Pneumonia secondary to COVID-19 Requiring 3 L nasal cannula -IV decadron -check inflammatory markers GIL on CKD3/4 Monitor renal function while receiving IV Lasix for CHF. Renal function may improve with diuresis will avoid IVF for now given CHF -continue bicarb supplementation -monitor renal function closely Acute on chronic HFpEF elevated BNP, pleural effusion on imaging -IV lasix -monitor Is&Os -low sodium diet -follow BNP/BMP Chest pain EKG similar to previous will trend trops DM SSI, POCs Continue home Lantus HTN continue coreg, norvasc Mood Continue trazodone, sertraline History of stroke Continue clopidogrel, asa, statin anemia of chronic disease H/H at baseline DVT prophylaxis-heparin Attending-Dr. Treviño Patient will likely require 2 midnight stay in the hospital due to acute respiratory failure, GIL, COVID-19, CHF Quality Stroke Does the patient have a stroke diagnosis?: No VTE Prior VTE?: No VTE Risk Level:: Medical - moderate - high VTE Device Contraindication: Treatment Not Indicated VTE Drug Contraindication: N/A - Med Ordered
[2022-03-25 11:40] LABS: Procalcitonin 0.16 ng/mL
[2022-03-25 12:09] LABS: Glucose, Whole Blood 255 mg/dL (60-115)
[2022-03-25 12:55] LABS: C Reactive Protein 0.76 mg/dL (< or = 0.50); Lactate Dehydrogenase 237 U/L (122-220)
[2022-03-25] MEDS: Heparin Sodium,Porcine 5,000 UNIT/ML VIAL 5000 UNIT SUBCUT (12:58)
[2022-03-25] MEDS: Insulin Lispro 100 UNIT/ML 3 ML VIAL SUBCUT ×3 (12:59→20:13)
[2022-03-25 14:31] LABS: Troponin-I High Sensitivity 15.6 ng/L (<3.5-17.0)
[2022-03-25 15:24] VITALS: BP 155/89; PULSE 67; RESP 20; TEMP 36.4; O2SAT 95
[2022-03-25 16:23] VITALS: BP 155/89; PULSE 69; RESP 22; O2SAT 97
[2022-03-25] MEDS: 0.9 % Sodium Chloride Flush 3 ML SYRINGE IVFLUSH (16:26)
--- NOTE | 2022-03-25 17:57 | PC.NURSE ---
called the floor for report awaiting a call back
[2022-03-25 18:21] LABS: Glucose, Whole Blood 268 mg/dL (60-115)
--- NOTE | 2022-03-25 18:30 | PC.NURSE ---
report given to imc rn
--- NOTE | 2022-03-25 18:36 | PC.NURSE ---
pt incontinent of small amount of yellow diarrhea
[2022-03-25 19:18] VITALS: BP 160/67; PULSE 75; RESP 18; TEMP 36.1; O2SAT 94
[2022-03-25 19:59] VITALS: BMI 40.5
[2022-03-25 20:07] LABS: Glucose, Whole Blood 279 mg/dL (60-115)
[2022-03-25] MEDS: Famotidine 20 MG TABLET 40 MG PO (20:12)
[2022-03-25] MEDS: carvediloL 6.25 MG TABLET PO (20:12)
[2022-03-25] MEDS: Aspirin Enteric Coated 81 MG TABLET.DR PO (20:12)
[2022-03-25] MEDS: Calcium + Vitamin D 250 MG TABLET 500 MG PO (20:13)
[2022-03-25] MEDS: Sodium Bicarbonate 650 MG TABLET PO (20:13)
[2022-03-25] MEDS: Atorvastatin Calcium 80 MG TABLET PO (20:13)
[2022-03-25] MEDS: traZODone HCL 50 MG TABLET PO (20:13)
[2022-03-25] MEDS: Magnesium Oxide 400 MG TABLET PO (20:13)
[2022-03-26] VITALS (7 sets, daily range): BP systolic 121–171; BP diastolic 60–82; PULSE 67–75; RESP 16–18; TEMP 36.8–37; O2SAT 96–100
[2022-03-26] MEDS: Heparin Sodium,Porcine 5,000 UNIT/ML VIAL 5000 UNIT SUBCUT ×2 (00:33→09:29)
[2022-03-26] MEDS: 0.9 % Sodium Chloride Flush 3 ML SYRINGE IVFLUSH ×2 (00:33→09:27)
[2022-03-26 07:03] LABS: MANUAL DIFF FLAG NO
[2022-03-26 07:09] LABS: Basophils Percent Auto 0.3 % (0-2); Hematocrit 23.9 % (37.0-47.0); Hemoglobin 7.3 g/dl (12.0-16.0); Imm Gran Pct Auto 0.8 % (0.0-0.4); Lymphocytes Absolute Auto 1.3 X10*3/uL (1.2-4.9); Mean Corpuscular HGB Conc 30.5 g/dl (31.0-35.0); Mean Corpuscular Volume 81.8 fL (80.0-98.0); Monocytes Absolute Auto 0.6 X10*3/uL (0.1-1.2); Neutrophils Absolute Auto 9.9 x10*3/uL (2.0-8.3); Neutrophils Percent Auto 82.9 % (45-73); Platelet Count 241 X10*3/uL (160-400); Red Blood Count 2.92 X10*6/uL (4.20-5.50); Red Cell Distribution Width 14.6 % (11.0-16.0); White Blood Count 11.9 X10*3/uL (4.8-10.8)
[2022-03-26 07:17] LABS: Glucose, Whole Blood 273 mg/dL (60-115)
[2022-03-26 07:30] LABS: Anion Gap 13 (12-20); Blood Urea Nitrogen 55 mg/dL (9-16); Calcium 8.3 mg/dL (8.4-10.2); Carbon Dioxide 25 mmol/L (22-29); Chloride 104 mmol/L (96-108); Creatinine Clr Calc Pharmacy 11.9; Estimated Glomerular Filt Rate 11; Glucose Random 327 mg/dL (60-115); Potassium 5.4 mmol/L (3.3-5.1); Sodium 137 mmol/L (135-145)
[2022-03-26 07:35] LABS: B Type Natriuretic Peptide 2999 pg/mL (<100)
[2022-03-26] MEDS: Insulin Glargine,Hum.rec.anlog 100 UNIT/ML 10 ML VIAL 10 UNIT SUBCUT (09:26)
[2022-03-26] MEDS: Insulin Lispro 100 UNIT/ML 3 ML VIAL SUBCUT ×4 (09:26→21:04)
[2022-03-26] MEDS: Famotidine 20 MG TABLET 40 MG PO ×2 (09:27→21:03)
[2022-03-26] MEDS: Sodium Bicarbonate 650 MG TABLET PO ×2 (09:27→21:03)
[2022-03-26] MEDS: Calcium + Vitamin D 250 MG TABLET 500 MG PO ×2 (09:27→21:04)
[2022-03-26] MEDS: Furosemide 40 MG/4 ML VIAL IVPUSH ×2 (09:27→17:28)
[2022-03-26] MEDS: Sodium Zirconium Cyclosilicate 5 GM POWD.PACK PO (09:27)
[2022-03-26] MEDS: Clopidogrel Bisulfate 75 MG TABLET PO (09:28)
[2022-03-26] MEDS: dexAMETHasone sod phosphate 4 MG/ML VIAL 6 MG IVPUSH (09:28)
[2022-03-26] MEDS: amLODIPine Besylate 10 MG TABLET PO (09:28)
[2022-03-26] MEDS: Magnesium Oxide 400 MG TABLET PO ×2 (09:28→21:04)
[2022-03-26] MEDS: Sertraline HCL 50 MG TABLET PO (09:28)
[2022-03-26] MEDS: carvediloL 6.25 MG TABLET PO ×2 (09:29→21:03)
--- NOTE | 2022-03-26 11:22 | HO.PM.IMPN ---
Subjective Subjective Date of Service: 03/26/22 Review of Systems Follow up covid, chf , gil doing better today sitting in bed Physical Exam Vital Signs: Vital Signs: Last Vital Signs Temp 98.4 F 03/26/22 07:45 Pulse 72 03/26/22 07:45 Resp 17 03/26/22 07:45 BP 145/68 H 03/26/22 07:45 Pulse Ox 100 03/26/22 07:45 O2 Del Method 03/26/22 07:45 O2 Flow Rate 3 03/26/22 00:00 Oxygen Flow Rate 3 03/25/22 08:40 BMI result Body Mass Index 40.5 Appearing in no acute distress lung sounds rales heart regular rate rhythm, clear S1, S2 positive bowel sounds, abdomen is soft, nontender neuro patient is alert x3, no focal deficits Objective Data Active Medications Acetaminophen (Acetaminophen 325 Mg Tablet) 650 mg PO Q6H PRN PRN Reason: Pain, Mild (Pain Scale 1-3) Amlodipine Besylate (Amlodipine Besylate 10 Mg Tablet) 10 mg PO DAILY [facility]; Protocol Last Admin: 03/26/22 09:28 Dose: 10 mg Documented By: JAY Aspirin (Aspirin Enteric Coated 81 Mg Tablet.) 81 mg PO BEDTIME [facility] Last Admin: 03/25/22 20:12 Dose: 81 mg Documented By: ABY Atorvastatin Calcium (Atorvastatin Calcium 80 Mg Tablet) 80 mg PO BEDTIME [facility] Last Admin: 03/25/22 20:13 Dose: 80 mg Documented By: ABY Calcium Carbonate/Cholecalciferol (Calcium + Vitamin D 250 Mg Tablet) 500 mg PO BID [facility] Last Admin: 03/26/22 09:27 Dose: 500 mg Documented By: JAY Carvedilol (Carvedilol 6.25 Mg Tablet) 6.25 mg PO BID [facility]; Protocol Last Admin: 03/26/22 09:29 Dose: 6.25 mg Documented By: JAY Clopidogrel Bisulfate (Clopidogrel Bisulfate 75 Mg Tablet) 75 mg PO DAILY [facility] Last Admin: 03/26/22 09:28 Dose: 75 mg Documented By: JAY Dexamethasone Sodium Phosphate (Dexamethasone Sod Phosphate 4 Mg/Ml Vial) 6 mg IVPUSH DAILY [facility] Last Admin: 03/26/22 09:28 Dose: 6 mg Documented By: JAY Dextrose (Dextrose 50 % 25 Gm/50 Ml Syringe) 25 gm IVPUSH Q15M PRN; Protocol PRN Reason: per Hypoglycemia Standing Ord. Docusate Sodium (Docusate Sodium 100 Mg Capsule) 100 mg PO DAILY PRN PRN Reason: Constipation Famotidine (Famotidine 20 Mg Tablet) 40 mg PO BID [facility] Last Admin: 03/26/22 09:27 Dose: 40 mg Documented By: JAY Furosemide (Furosemide 40 Mg/4 Ml Vial) 40 mg IVPUSH BID@0900,1800 [facility]; Protocol Last Admin: 03/26/22 09:27 Dose: 40 mg Documented By: JAY Glucose (Glucose Gel 15 Gm Gel..Gram.) 15 gm PO Q15M PRN; Protocol PRN Reason: per Hypoglycemia Standing Ord. Heparin Sodium (Porcine) (Heparin Sodium,Porcine 5,000 Unit/Ml Vial) 5,000 unit SUBCUT Q12H [facility] Last Admin: 03/26/22 09:29 Dose: 5,000 unit Documented By: JAY Insulin Glargine (Insulin Glargine,Hum.Rec.Anlog 100 Unit/Ml 10 Ml Vial) 10 unit SUBCUT DAILY [facility] Last Admin: 03/26/22 09:26 Dose: 10 unit Documented By: JAY Insulin Human Lispro (Insulin Lispro 100 Unit/Ml 3 Ml Vial) 0 unit SUBCUT QIDACHS [facility]; Protocol Last Admin: 03/26/22 09:26 Dose: 6 unit Documented By: JAY Magnesium Oxide (Magnesium Oxide 400 Mg Tablet) 400 mg PO BID [facility] Last Admin: 03/26/22 09:28 Dose: 400 mg Documented By: JAY Sertraline HCl (Sertraline Hcl 50 Mg Tablet) 50 mg PO DAILY [facility] Last Admin: 03/26/22 09:28 Dose: 50 mg Documented By: JAY Sodium Bicarbonate (Sodium Bicarbonate 650 Mg Tablet) 650 mg PO BID [facility] Last Admin: 03/26/22 09:27 Dose: 650 mg Documented By: JAY Sodium Chloride (0.9 % Sodium Chloride Flush 3 Ml Syringe) [address] [facility] Last Admin: 03/26/22 09:27 Dose: 3 ml Documented By: JAY Trazodone HCl (Trazodone Hcl 50 Mg Tablet) 50 mg PO BEDTIME [facility] Last Admin: 03/25/22 20:13 Dose: 50 mg Documented By: ABY Labs CBC & Chem 7: 03/26/22 06:58 03/26/22 06:58 Labs: Laboratory Results - last 24 hr 03/25/22 03/25/22 03/25/22 05:02 05:02 12:05 MCV MCH MCHC RDW Plt Count MPV Immature Gran % (Auto) Neut % (Auto) Lymph % (Auto) [place] % (Auto) Eos % (Auto) Baso % (Auto) Lymph # (Auto) [place] # (Auto) Eos # (Auto) Baso # (Auto) Abs Immat Gran (auto) Absolute Neuts (auto) Absolute Nucleated RBC Nucleated RBC % (auto) Anion Gap Estim Creat Clear Calc Estimated GFR POC Glucose 255 H Random Glucose Calcium Lactate Dehydrogenase 237 H Troponin I High Sens C-Reactive Protein 0.76 H B-Natriuretic Peptide Procalcitonin 0.16 03/25/22 03/25/22 03/25/22 14:01 18:17 19:45 MCV MCH MCHC RDW Plt Count MPV Immature Gran % (Auto) Neut % (Auto) Lymph % (Auto) [place] % (Auto) Eos % (Auto) Baso % (Auto) Lymph # (Auto) [place] # (Auto) Eos # (Auto) Baso # (Auto) Abs Immat Gran (auto) Absolute Neuts (auto) Absolute Nucleated RBC Nucleated RBC % (auto) Anion Gap Estim Creat Clear Calc Estimated GFR POC Glucose 268 H 279 H Random Glucose Calcium Lactate Dehydrogenase Troponin I High Sens 15.6 C-Reactive Protein B-Natriuretic Peptide Procalcitonin 03/26/22 03/26/22 03/26/22 06:58 06:58 06:58 MCV 81.8 MCH 25.0 L MCHC 30.5 L RDW 14.6 Plt Count 241 MPV 11.0 Immature Gran % (Auto) 0.8 H Neut % (Auto) 82.9 H Lymph % (Auto) 11.0 L [place] % (Auto) 5.0 Eos % (Auto) 0.0 Baso % (Auto) 0.3 Lymph # (Auto) 1.3 [place] # (Auto) 0.6 Eos # (Auto) 0.0 Baso # (Auto) 0.0 Abs Immat Gran (auto) 0.10 H Absolute Neuts (auto) 9.9 H Absolute Nucleated RBC 0.000 Nucleated RBC % (auto) 0.0 Anion Gap 13 Estim Creat Clear Calc 11.9 Estimated GFR 11 POC Glucose Random Glucose 327 H Calcium 8.3 L Lactate Dehydrogenase Troponin I High Sens C-Reactive Protein B-Natriuretic Peptide 2999 H Procalcitonin 03/26/22 07:10 MCV MCH MCHC RDW Plt Count MPV Immature Gran % (Auto) Neut % (Auto) Lymph % (Auto) [place] % (Auto) Eos % (Auto) Baso % (Auto) Lymph # (Auto) [place] # (Auto) Eos # (Auto) Baso # (Auto) Abs Immat Gran (auto) Absolute Neuts (auto) Absolute Nucleated RBC Nucleated RBC % (auto) Anion Gap Estim Creat Clear Calc Estimated GFR POC Glucose 273 H Random Glucose Calcium Lactate Dehydrogenase Troponin I High Sens C-Reactive Protein B-Natriuretic Peptide Procalcitonin Microbiology Microbiology Results: Microbiology 03/25/22 05:02 Blood Culture - Preliminary Blood - Venous No growth after 24 hours. 03/25/22 05:02 Blood Culture - Preliminary Blood - Venous No growth after 24 hours. Assessment and Plan (1) Pneumonia: Status: Acute Plan This is a 67-year-old [place]ian-speaking female with history of NICM, CKD3-4, GERD, HFrEF, anemia, HTN, HLD, DM with gastroparesis, left BKA, recent admission for hypoglycemia and CHF who presents from SNF with increasing cough found to have pneumonia secondary to COVID-19 and GIL Acute respiratory failure with hypoxia Secondary to pneumonia from COVID 19 and CHF Requiring 3 L nasal cannula IV decadron GIL on CKD3/4 Monitor renal function while receiving IV Lasix for CHF.? Renal function may improve with diuresis will avoid IVF for now given CHF continue bicarb supplementation Acute on chronic HFrEF elevated BNP, pleural effusion on imaging IV lasix monitor Is&Os low sodium diet follow BNP/BMP cardiology consult pending Chest pain EKG similar to previous flat trops DM 2 SSI, POCs Continue home Lantus HTN continue coreg, norvasc Mood Continue trazodone, sertraline History of stroke Continue clopidogrel, asa, statin anemia of chronic disease H/H at baseline DVT prophylaxis-heparin Attending-Dr. Waters continued hospitalization for treatment of GIL, COVID and CHF requiring IV diuretics Quality Stroke Does the patient have a stroke diagnosis?: No VTE Prior VTE?: No VTE Risk Level:: Medical - moderate - high VTE Device Contraindication: Treatment Not Indicated VTE Drug Contraindication: N/A - Med Ordered
[2022-03-26 11:26] LABS: Glucose, Whole Blood 270 mg/dL (60-115)
--- NOTE | 2022-03-26 14:17 | P.CONNP_ITS ---
History of Present Illness Reason for Consult Consult date: 03/26/22 Chief Complaint Chief complaint: covid 19 pneumonia chf History of Present Illness Narrative: 67-year-old patient of mine with CKD 4 presents from SNF due to cough.? She was admitted to the hospital from March 09 to March 18 initially for hypoglycemia as well as acute CHF.? She was discharged to senior care facility on the .? She reports that she has continued to have coughing with no fever or chills.? She denies shortness of breath at this time.? She was tested for COVID- 19 on the day of her discharge it was negative at that time.? In the emergency department her COVID-19 test was positive.? Chest x-ray shows moderate left pleural effusion which is increased when compared to previous as well as left base atelectasis or consolidation suspicious for pneumonia.?? Creatinine was elevated at 4.39.?She was treated with IV Lasix, IV Decadron, IV ceftriaxone and azithromycin. Nephrology has been consulted to assist in her clinical care Review of Systems Review of Systems Yes all other systems are reviewed and are negative [facility] Past Medical History Medical History Acute on chronic renal failure Acute respiratory failure with hypoxia Anemia Blister of finger without infection Cholecystectomy planned CKD (chronic kidney disease) CKD (chronic kidney disease), stage IV Congestive heart failure Diabetes Diabetes mellitus Elevated d-dimer Essential hypertension Gastroparesis GERD (gastroesophageal reflux disease) Hand pain Hernia HLD (hyperlipidemia) HTN (hypertension) Hypomagnesemia Irritable bowel syndrome with diarrhea Lightheadedness Low blood pressure Non-ST elevated myocardial infarction Nonischemic cardiomyopathy Other and unspecified hyperlipidemia Pharyngoesophageal dysphagia Family History Family History Father Lung cancer Mother Diabetes HTN (hypertension) Heart disease Sister Diabetes Heart disease Brother Heart disease Son Diabetes Daughter Diabetes Surgical History Surgical History H/O: hysterectomy History of esophagogastroduodenoscopy (EGD) Hx of colonoscopy Hx of eye surgery Social History Social History Household Members: Other Household Members Other:: SNF Housing: [facility] Do you presently have visiting nurse or other home services: No Unable to assess alcohol history related to: Unable to respond Alcohol intake: never Patient Tobacco Use Status: Never used Tobacco Second Hand Smoke Exposure: No Advance Directives Date on File: 02/02/22 service: No Current occupational status: disabled Meds Allergies Allergy/AdvReac Type Severity Reaction Status Date / Time latex [LATEX] Allergy Intermediate ITCHY Verified 06/29/21 13:08 Active Medications: Current Medications Acetaminophen (Acetaminophen 325 Mg Tablet) 650 mg PO Q6H PRN PRN Reason: Pain, Mild (Pain Scale 1-3) Amlodipine Besylate (Amlodipine Besylate 10 Mg Tablet) 10 mg PO DAILY [facility] [place]; Protocol Last Admin: 03/26/22 09:28 Dose: 10 mg Aspirin (Aspirin Enteric Coated 81 Mg Tablet.Dr) 81 mg PO BEDTIME [facility] Last Admin: 03/25/22 20:12 Dose: 81 mg Atorvastatin Calcium (Atorvastatin Calcium 80 Mg Tablet) 80 mg PO BEDTIME [facility] [place] Last Admin: 03/25/22 20:13 Dose: 80 mg Calcium Carbonate/Cholecalciferol (Calcium + Vitamin D 250 Mg Tablet) 500 mg PO BID [facility] [place] Last Admin: 03/26/22 09:27 Dose: 500 mg Carvedilol (Carvedilol 6.25 Mg Tablet) 6.25 mg PO BID [facility] [place]; Protocol Last Admin: 03/26/22 09:29 Dose: 6.25 mg Clopidogrel Bisulfate (Clopidogrel Bisulfate 75 Mg Tablet) 75 mg PO DAILY [facility] [place] Last Admin: 03/26/22 09:28 Dose: 75 mg Dexamethasone Sodium Phosphate (Dexamethasone Sod Phosphate 4 Mg/Ml Vial) 6 mg IVPUSH DAILY [facility] Last Admin: 03/26/22 09:28 Dose: 6 mg Dextrose (Dextrose 50 % 25 Gm/50 Ml Syringe) 25 gm IVPUSH Q15M PRN; Protocol PRN Reason: per Hypoglycemia Standing Ord. Docusate Sodium (Docusate Sodium 100 Mg Capsule) 100 mg PO DAILY PRN PRN Reason: Constipation Famotidine (Famotidine 20 Mg Tablet) 40 mg PO BID [facility] [place] Last Admin: 03/26/22 09:27 Dose: 40 mg Furosemide (Furosemide 40 Mg/4 Ml Vial) 40 mg IVPUSH BID@0900,1800 [facility] [place]; Protocol Last Admin: 03/26/22 09:27 Dose: 40 mg Glucose (Glucose Gel 15 Gm Gel..Gram.) 15 gm PO Q15M PRN; Protocol PRN Reason: per Hypoglycemia Standing Ord. Heparin Sodium (Porcine) (Heparin Sodium,Porcine 5,000 Unit/Ml Vial) 5,000 unit SUBCUT Q12H [facility] Last Admin: 03/26/22 09:29 Dose: 5,000 unit Insulin Glargine (Insulin Glargine,Hum.Rec.Anlog 100 Unit/Ml 10 Ml Vial) 10 unit SUBCUT DAILY [facility] [place] Last Admin: 03/26/22 09:26 Dose: 10 unit Insulin Human Lispro (Insulin Lispro 100 Unit/Ml 3 Ml Vial) 0 unit SUBCUT QIDACHS [facility] [place]; Protocol Last Admin: 03/26/22 12:35 Dose: 6 unit Magnesium Oxide (Magnesium Oxide 400 Mg Tablet) 400 mg PO BID [facility] Last Admin: 03/26/22 09:28 Dose: 400 mg Sertraline HCl (Sertraline Hcl 50 Mg Tablet) 50 mg PO DAILY [facility] Last Admin: 03/26/22 09:28 Dose: 50 mg Sodium Bicarbonate (Sodium Bicarbonate 650 Mg Tablet) 650 mg PO BID [facility] [place] Last Admin: 03/26/22 09:27 Dose: 650 mg Sodium Chloride (0.9 % Sodium Chloride Flush 3 Ml Syringe) [facility] Admin: 03/26/22 09:27 Dose: 3 ml Trazodone HCl (Trazodone Hcl 50 Mg Tablet) 50 mg PO BEDTIME [facility] [place] Last Admin: 03/25/22 20:13 Dose: 50 mg Home Medications Medication Instructions Recorded Confirmed Last Taken Type aspirin 81 mg tablet,delayed 81 mg PO BEDTIME 06/20/21 03/25/22 01/30/22 History release atorvastatin 80 mg tablet 80 mg PO BEDTIME 06/20/21 03/25/22 01/30/22 History calcium carbonate 600 mg-vitamin 1 tab PO BID 06/20/21 03/25/22 01/30/22 History D3 10 mcg (400 unit) tablet clopidogrel 75 mg tablet 75 mg PO DAILY 06/20/21 03/25/22 01/30/22 History magnesium oxide 400 mg (241.3 mg 400 mg PO BID 06/20/21 03/25/22 01/30/22 History magnesium) tablet sertraline 50 mg tablet 50 mg PO DAILY 06/20/21 03/25/22 01/30/22 History trazodone 50 mg tablet 50 mg PO BEDTIME 06/20/21 03/25/22 01/30/22 History insulin glargine 100 unit/mL (3 10 unit subcut DAILY 03/25/22 03/25/22 Unknown History mL) subcutaneous pen (Lantus Solostar U-100 Insulin) Physical Exam Vital Signs: Last Vital Signs Temp 98.5 F 03/26/22 12:16 Pulse 75 03/26/22 12:16 Resp 18 03/26/22 12:16 BP 150/65 H 03/26/22 12:16 Pulse Ox 100 03/26/22 12:16 O2 Del Method 03/26/22 12:16 O2 Flow Rate 3 03/26/22 12:16 Oxygen Flow Rate 3 03/25/22 08:40 BMI result Body Mass Index 40.5 Const General: no acute distress Orientation/consciousness: patient oriented x3 Eyes EOM: EOMs intact bilaterally Neck Neck: Yes supple Resp Auscultation: diminished lung sounds Cardio Rate: regular rate GI Palpation (GI): Soft to palpation Neuro General: patient oriented x3 Extrem Other: L BKA Results Lab Results Result Diagrams: 03/26/22 06:58 03/26/22 06:58 Lab results: Chemistry 03/25/22 03/26/22 05:02 06:58 Sodium 135 137 Potassium 4.5 5.4 H Carbon Dioxide 26 25 BUN 49 H D 55 H Creatinine 4.39 H* 4.18 H* Calcium 7.9 L D 8.3 L Hematology 03/25/22 03/26/22 05:02 06:58 WBC 8.6 11.9 H Hgb 7.3 L 7.3 L Plt Count 197 241 Assessment and Plan (1) GIL (acute kidney injury): Status: Acute Plan Has CKD 4 at baseline. Non compliant with office appointments Currently GIL due to COVID( cytokine storm) and CR Syndrome No reason to suspect GN/AIN/ Obstructive Uropathy Renal functions marginally better; C/W diuresis/supportive care Procedures Date of Service Date of Service: 03/26/22
[2022-03-26 16:06] LABS: Glucose, Whole Blood 305 mg/dL (60-115)
[2022-03-26] MEDS: Aspirin Enteric Coated 81 MG TABLET.DR PO (21:03)
[2022-03-26] MEDS: traZODone HCL 50 MG TABLET PO (21:04)
[2022-03-26] MEDS: Atorvastatin Calcium 80 MG TABLET PO (21:04)
[2022-03-26 23:08] LABS: Glucose, Whole Blood 233 mg/dL (60-115)
[2022-03-27] MEDS: 0.9 % Sodium Chloride Flush 3 ML SYRINGE IVFLUSH ×4 (00:55→21:21)
[2022-03-27 03:16] VITALS: BP 168/70; PULSE 62; RESP 19; TEMP 36.2; O2SAT 98
[2022-03-27 07:12] LABS: Hematocrit 23.9 % (37.0-47.0); Hemoglobin 7.3 g/dl (12.0-16.0); Mean Corpuscular HGB Conc 30.5 g/dl (31.0-35.0); Mean Corpuscular Hemoglobin 25.1 pg (27.0-33.0); Mean Corpuscular Volume 82.1 fL (80.0-98.0); Platelet Count 261 X10*3/uL (160-400); Red Blood Count 2.91 X10*6/uL (4.20-5.50); Red Cell Distribution Width 14.6 % (11.0-16.0)
[2022-03-27 07:32] LABS: Anion Gap 17 (12-20); Blood Urea Nitrogen 60 mg/dL (9-16); Calcium 8.6 mg/dL (8.4-10.2); Carbon Dioxide 24 mmol/L (22-29); Chloride 103 mmol/L (96-108); Estimated Glomerular Filt Rate 11; Glucose Random 174 mg/dL (60-115); Sodium 139 mmol/L (135-145)
[2022-03-27 07:33] LABS: Glucose, Whole Blood 147 mg/dL (60-115)
[2022-03-27 08:00] VITALS: BP 140/56; PULSE 64; RESP 20; TEMP 36.7; O2SAT 96
[2022-03-27 08:46] LABS: B Type Natriuretic Peptide 2002 pg/mL (<100)
[2022-03-27] MEDS: Sertraline HCL 50 MG TABLET PO (09:28)
[2022-03-27] MEDS: dexAMETHasone sod phosphate 4 MG/ML VIAL 6 MG IVPUSH (09:28)
[2022-03-27] MEDS: Furosemide 40 MG/4 ML VIAL IVPUSH (09:28)
[2022-03-27] MEDS: Clopidogrel Bisulfate 75 MG TABLET PO (09:28)
[2022-03-27] MEDS: Famotidine 20 MG TABLET 40 MG PO ×2 (09:28→21:20)
[2022-03-27] MEDS: Calcium + Vitamin D 250 MG TABLET 500 MG PO ×2 (09:29→21:21)
[2022-03-27] MEDS: Sodium Bicarbonate 650 MG TABLET PO ×2 (09:29→21:20)
[2022-03-27] MEDS: Magnesium Oxide 400 MG TABLET PO ×2 (09:29→21:20)
[2022-03-27] MEDS: carvediloL 6.25 MG TABLET PO ×2 (09:29→21:20)
[2022-03-27] MEDS: amLODIPine Besylate 10 MG TABLET PO (09:30)
[2022-03-27] MEDS: Insulin Glargine,Hum.rec.anlog 100 UNIT/ML 10 ML VIAL 10 UNIT SUBCUT (09:30)
[2022-03-27 11:17] VITALS: BP 156/48; PULSE 65; RESP 20; TEMP 36.9; O2SAT 95
[2022-03-27 11:34] LABS: Glucose, Whole Blood 209 mg/dL (60-115)
--- NOTE | 2022-03-27 11:55 | P.CONCA_ITS ---
History of Present Illness History of Present Illness Date of Service: 03/27/22 Requesting physician: Maria Luisa Matos Consult reason: other (Elevated BNP) Chief complaint: covid 19 pneumonia chf Narrative: I was consulted to see Debbie in cardiology consultation today due to elevated BNP and worsening renal function. She is been sent to emergency room for intermediate facility after last discharge on March 18 with increasing cough. She was admitted in March because of acute congestive heart failure. Patient says she has cough dry in nature no productive phlegm. Came to the hospital. Was noted to have elevated BNP but also worsened renal function. Chest x-ray shows worsening left pleural effusion and underlying possible p neumonia and/or atelectasis. He is afebrile and no leukocytosis. She is admitted now. She was treated with IV Decadron 6 tracks on as his demise in. Troponin is indeterminate. She denies any chest pain. When I saw she says she is feeling better. She denies any cough. Denies any clear orthopnea PND. Lying comfortably in bed. Denies palpitations or lightheadedness. She has difficult to treat heart failure with advanced kidney disease. She is basically bedbound due to her amputation. Review of Systems Constitutional: Constitutional: Reports no additional constitutional complaints Eyes: Eyes: Reports no additional eye complaints Cardiovascular: Cardiovascular: Denies chest pain, Denies lightheadedness, Denies Loss of Consciousness, Denies palpitations and Denies orthopnea Respiratory: Respiratory: Reports cough Gastrointestinal: Gastrointestinal: Reports no additional gastrointestinal complaints Genitourinary: Genitourinary: Reports no additional female genitourinary complaints Musculoskeletal: Musculoskeletal: Reports no additional musculoskeletal complaints Integumentary/Breasts: Skin/Breast: Reports system reviewed and no additional complaints, except as docu Neurologic: Reports system reviewed and no additional complaints, except as documented Psychiatric: Psychiatric: Reports no additional psychiatric complaints Endocrine: Endocrine: Reports no additional endocrine complaints and Denies palpitations PMFSH Past Medical History Medical History Acute on chronic renal failure Acute respiratory failure with hypoxia Anemia Blister of finger without infection Cholecystectomy planned CKD (chronic kidney disease) CKD (chronic kidney disease) stage 3, GFR 30-59 ml/min CKD (chronic kidney disease) stage 4, GFR 15-29 ml/min CKD (chronic kidney disease), stage IV Congestive heart failure Diabetes Diabetes mellitus Elevated d-dimer Essential hypertension Gastroparesis GERD (gastroesophageal reflux disease) Hand pain Hernia HLD (hyperlipidemia) HTN (hypertension) Hypomagnesemia Irritable bowel syndrome with diarrhea Lightheadedness Low blood pressure Non-ST elevated myocardial infarction Nonischemic cardiomyopathy Other and unspecified hyperlipidemia Pharyngoesophageal dysphagia Family History Family History Father Lung cancer Mother Diabetes HTN (hypertension) Heart disease Sister Diabetes Heart disease Brother Heart disease Son Diabetes Daughter Diabetes Surgical History Surgical History H/O: hysterectomy History of esophagogastroduodenoscopy (EGD) Hx of colonoscopy Hx of eye surgery Social History Social History Household Members: Other Household Members Other:: SNF Housing: Retirement Do you presently have visiting nurse or other home services: No Unable to assess alcohol history related to: Unable to respond Alcohol intake: never Patient Tobacco Use Status: Never used Tobacco Second Hand Smoke Exposure: No Advance Directives Date on File: 02/02/22 service: No Current occupational status: disabled Meds Allergies Allergy/AdvReac Type Severity Reaction Status Date / Time latex [LATEX] Allergy Intermediate ITCHY Verified 06/29/21 13:08 Active Medications: Current Medications Acetaminophen (Acetaminophen 325 Mg Tablet) 650 mg PO Q6H PRN PRN Reason: Pain, Mild (Pain Scale 1-3) Amlodipine Besylate (Amlodipine Besylate 10 Mg Tablet) 10 mg PO DAILY [facility]; Protocol Last Admin: 03/27/22 09:30 Dose: 10 mg Aspirin (Aspirin Enteric Coated 81 Mg Tablet.) 81 mg PO BEDTIME [facility] Last Admin: 03/26/22 21:03 Dose: 81 mg Atorvastatin Calcium (Atorvastatin Calcium 80 Mg Tablet) 80 mg PO BEDTIME [facility] Last Admin: 03/26/22 21:04 Dose: 80 mg Calcium Carbonate/Cholecalciferol (Calcium + Vitamin D 250 Mg Tablet) 500 mg PO BID [facility] Last Admin: 03/27/22 09:29 Dose: 500 mg Carvedilol (Carvedilol 6.25 Mg Tablet) 6.25 mg PO BID [facility]; Protocol Last Admin: 03/27/22 09:29 Dose: 6.25 mg Clopidogrel Bisulfate (Clopidogrel Bisulfate 75 Mg Tablet) 75 mg PO DAILY [facility] Last Admin: 03/27/22 09:28 Dose: 75 mg Dexamethasone Sodium Phosphate (Dexamethasone Sod Phosphate 4 Mg/Ml Vial) 6 mg IVPUSH DAILY [facility] Last Admin: 03/27/22 09:28 Dose: 6 mg Dextrose (Dextrose 50 % 25 Gm/50 Ml Syringe) 25 gm IVPUSH Q15M PRN; Protocol PRN Reason: per Hypoglycemia Standing Ord. Docusate Sodium (Docusate Sodium 100 Mg Capsule) 100 mg PO DAILY PRN PRN Reason: Constipation Famotidine (Famotidine 20 Mg Tablet) 40 mg PO BID [facility] Last Admin: 03/27/22 09:28 Dose: 40 mg Furosemide (Furosemide 40 Mg/4 Ml Vial) 40 mg IVPUSH BID@0900,1800 [facility]; Protocol Last Admin: 03/27/22 09:28 Dose: 40 mg Glucose (Glucose Gel 15 Gm Gel..Gram.) 15 gm PO Q15M PRN; Protocol PRN Reason: per Hypoglycemia Standing Ord. Heparin Sodium (Porcine) (Heparin Sodium,Porcine 5,000 Unit/Ml Vial) 5,000 unit SUBCUT Q12H [facility] Last Admin: 03/26/22 22:41 Dose: Not Given Insulin Glargine (Insulin Glargine,Hum.Rec.Anlog 100 Unit/Ml 10 Ml Vial) 10 unit SUBCUT DAILY [facility] Last Admin: 03/27/22 09:30 Dose: 10 unit Insulin Human Lispro (Insulin Lispro 100 Unit/Ml 3 Ml Vial) 0 unit SUBCUT QIDACHS [facility]; Protocol Last Admin: 03/27/22 08:51 Dose: Not Given Magnesium Oxide (Magnesium Oxide 400 Mg Tablet) 400 mg PO BID [facility] Last Admin: 03/27/22 09:29 Dose: 400 mg Sertraline HCl (Sertraline Hcl 50 Mg Tablet) 50 mg PO DAILY [facility] Last Admin: 03/27/22 09:28 Dose: 50 mg Sodium Bicarbonate (Sodium Bicarbonate 650 Mg Tablet) 650 mg PO BID [facility] Last Admin: 03/27/22 09:29 Dose: 650 mg Sodium Chloride (0.9 % Sodium Chloride Flush 3 Ml Syringe) 3 ml IVFLUSH QSHIFT [facility] Last Admin: 03/27/22 09:32 Dose: 3 ml Trazodone HCl (Trazodone Hcl 50 Mg Tablet) 50 mg PO BEDTIME [facility] Last Admin: 03/26/22 21:04 Dose: 50 mg Home Medications Medication Instructions Recorded Confirmed Last Taken Type aspirin 81 mg tablet,delayed 81 mg PO BEDTIME 06/20/21 03/25/22 01/30/22 History release atorvastatin 80 mg tablet 80 mg PO BEDTIME 06/20/21 03/25/22 01/30/22 History calcium carbonate 600 mg-vitamin 1 tab PO BID 06/20/21 03/25/22 01/30/22 History D3 10 mcg (400 unit) tablet clopidogrel 75 mg tablet 75 mg PO DAILY 06/20/21 03/25/22 01/30/22 History magnesium oxide 400 mg (241.3 mg 400 mg PO BID 06/20/21 03/25/22 01/30/22 History magnesium) tablet sertraline 50 mg tablet 50 mg PO DAILY 06/20/21 03/25/22 01/30/22 History trazodone 50 mg tablet 50 mg PO BEDTIME 06/20/21 03/25/22 01/30/22 History insulin glargine 100 unit/mL (3 10 unit subcut DAILY 03/25/22 03/25/22 Unknown History mL) subcutaneous pen (Lantus Solostar U-100 Insulin) Physical Exam Vital Signs: Vital Signs: Last Vital Signs Temp 98.4 F 03/27/22 11:17 Pulse 65 03/27/22 11:17 Resp 20 03/27/22 11:17 BP 156/48 H 03/27/22 11:17 Pulse Ox 95 03/27/22 11:17 O2 Del Method 03/27/22 11:17 O2 Flow Rate 3 03/27/22 08:00 Oxygen Flow Rate 3 03/25/22 08:40 BMI result Body Mass Index 40.5 Const: General: cooperative, comfortable, no acute distress, alert and awake Nutritional Appearance: obese Orientation/consciousness: patient oriented x3 HEENT: Head: Yes normocephalic and Yes atraumatic Neck: Neck: Yes trachea midline, Yes supple and Yes no JVD Resp: Effort & Inspection: normal respiratory effort Auscultation: no crackles, no rales, no wheezes and diminished lung sounds on the left in the lower lung wilkes Cardio: Jugular venous distension: no JVD Rate: regular rate Rhythm: regular rhythm Heart sounds: S1 normal heart sound present, S2 normal heart sound present, no click, no gallops and Murmur heart sound present systolic GI: Inspection: Yes obesity Auscultation: normal bowel sounds Skin: General skin exam: no rashes or lesions noted Neuro: General: patient oriented x3 and no focal motor deficits Extrem: General: Yes no clubbing, cyanosis or edema Objective Labs and Meds Result diagrams: 03/27/22 06:28 03/27/22 06:28 Lab results: Laboratory Results - last 24 hr 03/26/22 03/26/22 03/27/22 16:02 20:35 06:28 WBC 13.0 H RBC 2.91 L Hgb 7.3 L Hct 23.9 L MCV 82.1 MCH 25.1 L MCHC 30.5 L RDW 14.6 Plt Count 261 MPV 11.0 Absolute Nucleated RBC 0.000 Nucleated RBC % (auto) 0.0 Sodium Potassium Chloride Carbon Dioxide Anion Gap BUN Creatinine Estim Creat Clear Calc Estimated GFR POC Glucose 305 H 233 H Random Glucose Calcium B-Natriuretic Peptide 03/27/22 03/27/22 03/27/22 06:28 06:28 07:27 WBC RBC Hgb Hct MCV MCH MCHC RDW Plt Count MPV Absolute Nucleated RBC Nucleated RBC % (auto) Sodium 139 Potassium 5.0 Chloride 103 Carbon Dioxide 24 Anion Gap 17 BUN 60 H Creatinine 4.17 H* Estim Creat Clear Calc 12.0 Estimated GFR 11 POC Glucose 147 H Random Glucose 174 H Calcium 8.6 B-Natriuretic Peptide 2002 H 03/27/22 11:21 WBC RBC Hgb Hct MCV MCH MCHC RDW Plt Count MPV Absolute Nucleated RBC Nucleated RBC % (auto) Sodium Potassium Chloride Carbon Dioxide Anion Gap BUN Creatinine Estim Creat Clear Calc Estimated GFR POC Glucose 209 H Random Glucose Calcium B-Natriuretic Peptide Assessment and Plan (1) Chronic heart failure with preserved ejection fraction (HFpEF): Status: Acute Patient with prior history of heart failure preserved ejection fraction diffic ult to treat due to difficult to assess volume status although clinically currently appears to be not significantly florid heart failure or evidence of fluid overload at this point time. Elevated BNP is most likely from worsening renal function. I think she should be given a couple of days of diuretic holiday. Continue monitor renal function. She does have underlying pulmonary process with pulmonary infiltrate and effusion. Consider thoracocentesis to assess for the etiology of pleural effusion. Continue monitor strict intake and output chart. Continue monitor renal function. Continue other antihypertensive therapy. Blood pressure is still elevated. May consider addition ofHydralazine to her regimen for better blood pressure control. Continue supportive care. Will sign of the case at this point time. Thank you for allowing us to partake in her care Procedures Date of Service Date of Service: 03/27/22
[2022-03-27] MEDS: Insulin Lispro 100 UNIT/ML 3 ML VIAL SUBCUT ×3 (12:30→21:22)
[2022-03-27] MEDS: Heparin Sodium,Porcine 5,000 UNIT/ML VIAL 5000 UNIT SUBCUT ×2 (12:30→21:21)
--- NOTE | 2022-03-27 14:06 | PM.PNNEP ---
Subjective Subjective Date of Service: 03/27/22 Interval history: Events noted. All recent data reviewed Physical Exam Vital Signs: Vital Signs: Last Vital Signs Temp 98.4 F 03/27/22 11:17 Pulse 65 03/27/22 11:17 Resp 20 03/27/22 11:17 BP 156/48 H 03/27/22 11:17 Pulse Ox 95 03/27/22 11:17 O2 Del Method 03/27/22 11:17 O2 Flow Rate 3 03/27/22 08:00 Oxygen Flow Rate 3 03/25/22 08:40 BMI result Body Mass Index 40.5 Const: General: no acute distress Orientation/consciousness: patient oriented x3 Eyes: EOM: EOMs intact bilaterally Resp: Auscultation: diminished lung sounds Cardio: Rate: regular rate GI: Palpation (GI): Soft to palpation Neuro: General: patient oriented x3 Extrem: Other: L BKA Objective Data Labs CBC & Chem 7: 03/27/22 06:28 03/27/22 06:28 Labs: Laboratory Results - last 24 hr 03/26/22 03/26/22 03/27/22 16:02 20:35 06:28 WBC 13.0 H RBC 2.91 L Hgb 7.3 L Hct 23.9 L MCV 82.1 MCH 25.1 L MCHC 30.5 L RDW 14.6 Plt Count 261 MPV 11.0 Absolute Nucleated RBC 0.000 Nucleated RBC % (auto) 0.0 Sodium Potassium Chloride Carbon Dioxide Anion Gap BUN Creatinine Estim Creat Clear Calc Estimated GFR POC Glucose 305 H 233 H Random Glucose Calcium B-Natriuretic Peptide 03/27/22 03/27/22 03/27/22 06:28 06:28 07:27 WBC RBC Hgb Hct MCV MCH MCHC RDW Plt Count MPV Absolute Nucleated RBC Nucleated RBC % (auto) Sodium 139 Potassium 5.0 Chloride 103 Carbon Dioxide 24 Anion Gap 17 BUN 60 H Creatinine 4.17 H* Estim Creat Clear Calc 12.0 Estimated GFR 11 POC Glucose 147 H Random Glucose 174 H Calcium 8.6 B-Natriuretic Peptide 2002 H 03/27/22 11:21 WBC RBC Hgb Hct MCV MCH MCHC RDW Plt Count MPV Absolute Nucleated RBC Nucleated RBC % (auto) Sodium Potassium Chloride Carbon Dioxide Anion Gap BUN Creatinine Estim Creat Clear Calc Estimated GFR POC Glucose 209 H Random Glucose Calcium B-Natriuretic Peptide Microbiology Microbiology Results: Microbiology 03/25/22 05:02 Blood - Venous Blood Culture - Preliminary No growth after 48 hours. 03/25/22 05:02 Blood - Venous Blood Culture - Preliminary No growth after 48 hours. Procedures Date of Service Date of Service: 03/27/22 Assessment & Plan Assessment and plan (1) Acute renal failure: Status: Acute Assessment and Plan: Has CKD 4 at baseline. Non compliant with office appointments Currently GIL due to COVID( cytokine storm) and CR Syndrome No reason to suspect GN/AIN/ Obstructive Uropathy Renal functions marginally better; C/W diuresis/supportive care Time Spent With Patient Time: Total time spent is greater than 50% in coordination of care (as documented) at patient's floor/unit and/or counseling patient: Progress Note: Quality Stroke Does the patient have a stroke diagnosis?: No
--- NOTE | 2022-03-27 14:43 | P.PNIM_ITS ---
Subjective Subjective Date of Service: 03/27/22 Review of Systems Follow up covid, chf , gil doing better today sitting in chair Physical Exam Vital Signs: Vital Signs: Last Vital Signs Temp 98.4 F 03/27/22 11:17 Pulse 65 03/27/22 11:17 Resp 20 03/27/22 11:17 BP 156/48 H 03/27/22 11:17 Pulse Ox 95 03/27/22 11:17 O2 Del Method 03/27/22 11:17 O2 Flow Rate 3 03/27/22 08:00 Oxygen Flow Rate 3 03/25/22 08:40 BMI result Body Mass Index 40.5 Appearing in no acute distress lung sounds are clear to auscultation heart regular rate rhythm, clear S1, S2 positive bowel sounds, abdomen is soft, nontender neuro patient is alert x3, no focal deficits Objective Data Active Medications Acetaminophen (Acetaminophen 325 Mg Tablet) 650 mg PO Q6H PRN PRN Reason: Pain, Mild (Pain Scale 1-3) Amlodipine Besylate (Amlodipine Besylate 10 Mg Tablet) 10 mg PO DAILY [facility]; Protocol Last Admin: 03/27/22 09:30 Dose: 10 mg Documented By: LEVI Aspirin (Aspirin Enteric Coated 81 Mg Tablet.) 81 mg PO BEDTIME [facility] Last Admin: 03/26/22 21:03 Dose: 81 mg Documented By: RBYCE Atorvastatin Calcium (Atorvastatin Calcium 80 Mg Tablet) 80 mg PO BEDTIME [facility] Last Admin: 03/26/22 21:04 Dose: 80 mg Documented By: BRYCE Calcium Carbonate/Cholecalciferol (Calcium + Vitamin D 250 Mg Tablet) 500 mg PO BID [facility] Last Admin: 03/27/22 09:29 Dose: 500 mg Documented By: LEVI Carvedilol (Carvedilol 6.25 Mg Tablet) 6.25 mg PO BID [facility]; Protocol Last Admin: 03/27/22 09:29 Dose: 6.25 mg Documented By: LEVI Clopidogrel Bisulfate (Clopidogrel Bisulfate 75 Mg Tablet) 75 mg PO DAILY [facility] Last Admin: 03/27/22 09:28 Dose: 75 mg Documented By: LEVI Dexamethasone Sodium Phosphate (Dexamethasone Sod Phosphate 4 Mg/Ml Vial) 6 mg IVPUSH DAILY [facility] Last Admin: 03/27/22 09:28 Dose: 6 mg Documented By: LEVI Dextrose (Dextrose 50 % 25 Gm/50 Ml Syringe) 25 gm IVPUSH Q15M PRN; Protocol PRN Reason: per Hypoglycemia Standing Ord. Docusate Sodium (Docusate Sodium 100 Mg Capsule) 100 mg PO DAILY PRN PRN Reason: Constipation Famotidine (Famotidine 20 Mg Tablet) 40 mg PO BID [facility] Last Admin: 03/27/22 09:28 Dose: 40 mg Documented By: LEVI Furosemide (Furosemide 40 Mg/4 Ml Vial) 40 mg IVPUSH BID@0900,1800 [facility]; Protocol Last Admin: 03/27/22 09:28 Dose: 40 mg Documented By: LEVI Glucose (Glucose Gel 15 Gm Gel..Gram.) 15 gm PO Q15M PRN; Protocol PRN Reason: per Hypoglycemia Standing Ord. Heparin Sodium (Porcine) (Heparin Sodium,Porcine 5,000 Unit/Ml Vial) 5,000 unit SUBCUT Q12H [facility] Last Admin: 03/27/22 12:30 Dose: 5,000 unit Documented By: LEVI Insulin Glargine (Insulin Glargine,Hum.Rec.Anlog 100 Unit/Ml 10 Ml Vial) 10 unit SUBCUT DAILY [facility] Last Admin: 03/27/22 09:30 Dose: 10 unit Documented By: LEVI Insulin Human Lispro (Insulin Lispro 100 Unit/Ml 3 Ml Vial) 0 unit SUBCUT QIDACHS [facility]; Protocol Last Admin: 03/27/22 12:30 Dose: 4 unit Documented By: LEVI Magnesium Oxide (Magnesium Oxide 400 Mg Tablet) 400 mg PO BID [facility] Last Admin: 03/27/22 09:29 Dose: 400 mg Documented By: LEVI Sertraline HCl (Sertraline Hcl 50 Mg Tablet) 50 mg PO DAILY [facility] Last Admin: 03/27/22 09:28 Dose: 50 mg Documented By: LEVI Sodium Bicarbonate (Sodium Bicarbonate 650 Mg Tablet) 650 mg PO BID [facility] Last Admin: 03/27/22 09:29 Dose: 650 mg Documented By: LEVI Sodium Chloride (0.9 % Sodium Chloride Flush 3 Ml Syringe) 3 ml IVFLUSH [facility] Last Admin: 03/27/22 09:32 Dose: 3 ml Documented By: LEVI Trazodone HCl (Trazodone Hcl 50 Mg Tablet) 50 mg PO BEDTIME [facility] Last Admin: 03/26/22 21:04 Dose: 50 mg Documented By: BRYCE Labs CBC & Chem 7: 03/27/22 06:28 03/27/22 06:28 Labs: Laboratory Results - last 24 hr 03/26/22 03/26/22 03/27/22 16:02 20:35 06:28 MCV 82.1 MCH 25.1 L MCHC 30.5 L RDW 14.6 Plt Count 261 MPV 11.0 Absolute Nucleated RBC 0.000 Nucleated RBC % (auto) 0.0 Anion Gap Estim Creat Clear Calc Estimated GFR POC Glucose 305 H 233 H Random Glucose Calcium B-Natriuretic Peptide 03/27/22 03/27/22 03/27/22 06:28 06:28 07:27 MCV MCH MCHC RDW Plt Count MPV Absolute Nucleated RBC Nucleated RBC % (auto) Anion Gap 17 Estim Creat Clear Calc 12.0 Estimated GFR 11 POC Glucose 147 H Random Glucose 174 H Calcium 8.6 B-Natriuretic Peptide 2002 H 03/27/22 11:21 MCV MCH MCHC RDW Plt Count MPV Absolute Nucleated RBC Nucleated RBC % (auto) Anion Gap Estim Creat Clear Calc Estimated GFR POC Glucose 209 H Random Glucose Calcium B-Natriuretic Peptide Microbiology Microbiology Results: Microbiology 03/25/22 05:02 Blood Culture - Preliminary Blood - Venous No growth after 48 hours. 03/25/22 05:02 Blood Culture - Preliminary Blood - Venous No growth after 48 hours. Assessment and Plan (1) Pneumonia: Status: Acute Plan This is a 67-year-old Hungarian-speaking female with history of NICM, CKD3-4, GERD, HFrEF, anemia, HTN, HLD, DM with gastroparesis, left BKA, recent admission for hypoglycemia and CHF who presents from SNF with increasing cough found to have pneumonia secondary to COVID-19 and GIL Pleural effusion Will order thoracentesis check INR NPO after midnight Acute respiratory failure with hypoxia> resolved Secondary to pneumonia from COVID 19 and CHF Requiring 3 L nasal cannula IV decadron GIL on CKD3/4. Chronic continue bicarb supplementation monitor BMP Acute on chronic HFrEF elevated BNP, pleural effusion on imaging stop IV lasix as per cardio, give diuretic holiday monitor Is&Os low sodium diet follow BNP/BMP Chest pain EKG similar to previous flat trops DM 2 SSI, POCs Continue home Lantus HTN continue coreg, norvasc Mood Continue trazodone, sertraline History of stroke Continue clopidogrel, asa, statin anemia of chronic disease H/H at baseline DVT prophylaxis-heparin Attending-Dr. Waters continued hospitalization for treatment of GIL, COVID and monitoring of elevated blood pressure and monitoring of labs Quality Stroke Does the patient have a stroke diagnosis?: No VTE Prior VTE?: No VTE Risk Level:: Medical - moderate - high VTE Device Contraindication: Treatment Not Indicated VTE Drug Contraindication: N/A - Med Ordered
[2022-03-27 15:31] LABS: Glucose, Whole Blood 276 mg/dL (60-115)
[2022-03-27 15:33] LABS: Glucose Random 336 mg/dL (60-115); Lactate Dehydrogenase 236 U/L (122-220)
[2022-03-27 15:42] VITALS: BP 137/58; PULSE 63; RESP 17; TEMP 36.4; O2SAT 96
[2022-03-27] MEDS: Acetaminophen 325 MG TABLET 650 MG PO (16:03)
--- NOTE | 2022-03-27 16:12 | MHC.CM.PN ---
PT COVID POSITIVE CM CALLED PTS DAUGHTER/HCP, SPENCER [phone] SHE REPORTS PT LIVES AT HOME NEXT DOOR TO HER AND WAS ACTIVE WITH [facility] [employer] PRIOR TO HER LAST ADMISSION. SHE REPORTS PT WENT TO [facility] OF FOLLOWING HER LAST ADMISSION FOR STR [facility] IS FOR PT TO RETURN TO [facility] AND COMPLETE STR HCP ON FILE PCP: DENYS LO [facility]: [facility]
[2022-03-27 20:11] LABS: Glucose, Whole Blood 264 mg/dL (60-115)
[2022-03-27 20:20] VITALS: BP 164/68; PULSE 62; RESP 20; TEMP 36.8; O2SAT 97
[2022-03-27] MEDS: Aspirin Enteric Coated 81 MG TABLET.DR PO (21:20)
[2022-03-27] MEDS: Atorvastatin Calcium 80 MG TABLET PO (21:20)
[2022-03-27] MEDS: traZODone HCL 50 MG TABLET PO (21:21)
[2022-03-28] VITALS: BP 159/67; PULSE 63; RESP 18; TEMP 36.6; O2SAT 92
[2022-03-28 04:00] VITALS: BP 156/68; PULSE 70; TEMP 36.9; O2SAT 95
[2022-03-28 07:17] LABS: INTERNATIONAL NORM RATIO 1.3 (0.9-1.1); Prothrombin Time 14.5 SEC (9.9-13.0)
[2022-03-28 07:28] LABS: Anion Gap 15 (12-20); Blood Urea Nitrogen 67 mg/dL (9-16); Calcium 8.6 mg/dL (8.4-10.2); Carbon Dioxide 25 mmol/L (22-29); Chloride 103 mmol/L (96-108); Estimated Glomerular Filt Rate 11; Glucose Random 224 mg/dL (60-115); Sodium 138 mmol/L (135-145)
[2022-03-28 07:34] LABS: Glucose, Whole Blood 192 mg/dL (60-115)
[2022-03-28 08:00] VITALS: BP 189/76; PULSE 60; RESP 20; TEMP 36.4; O2SAT 98
[2022-03-28] MEDS: Insulin Lispro 100 UNIT/ML 3 ML VIAL SUBCUT ×4 (09:49→22:53)
[2022-03-28] MEDS: Insulin Glargine,Hum.rec.anlog 100 UNIT/ML 10 ML VIAL 10 UNIT SUBCUT (09:49)
[2022-03-28] MEDS: 0.9 % Sodium Chloride Flush 3 ML SYRINGE IVFLUSH ×3 (09:51→22:53)
[2022-03-28] MEDS: dexAMETHasone sod phosphate 4 MG/ML VIAL 6 MG IVPUSH (09:51)
[2022-03-28] MEDS: Magnesium Oxide 400 MG TABLET PO ×2 (09:54→22:52)
[2022-03-28] MEDS: Sodium Bicarbonate 650 MG TABLET PO ×2 (09:54→22:51)
[2022-03-28] MEDS: Calcium + Vitamin D 250 MG TABLET 500 MG PO ×2 (09:55→22:52)
[2022-03-28] MEDS: Famotidine 20 MG TABLET 40 MG PO ×2 (09:55→22:51)
[2022-03-28] MEDS: carvediloL 6.25 MG TABLET PO ×2 (09:55→22:52)
[2022-03-28] MEDS: Heparin Sodium,Porcine 5,000 UNIT/ML VIAL 5000 UNIT SUBCUT ×2 (09:56→22:51)
[2022-03-28] MEDS: Sertraline HCL 50 MG TABLET PO (09:56)
[2022-03-28] MEDS: amLODIPine Besylate 10 MG TABLET PO (09:56)
[2022-03-28 11:06] LABS: Hematocrit 25.2 % (37.0-47.0); Hemoglobin 7.9 g/dl (12.0-16.0); Mean Corpuscular HGB Conc 31.3 g/dl (31.0-35.0); Mean Corpuscular Hemoglobin 25.7 pg (27.0-33.0); Mean Corpuscular Volume 82.1 fL (80.0-98.0); Mean Platelet Volume 10.9 fL (9.4-12.3); Platelet Count 280 X10*3/uL (160-400); Red Blood Count 3.07 X10*6/uL (4.20-5.50); Red Cell Distribution Width 14.8 % (11.0-16.0)
--- NOTE | 2022-03-28 11:20 | P.PNIM_ITS ---
Subjective Subjective Date of Service: 03/28/22 Interval History: seen and examined feels the same, no significant difference denies sob/cough Review of Systems negative except HPI Physical Exam Vital Signs: Vital Signs: Last Vital Signs Temp 97.6 F 03/28/22 08:00 Pulse 60 03/28/22 08:00 Resp 20 03/28/22 08:00 BP 189/76 H 03/28/22 08:00 Pulse Ox 98 03/28/22 08:00 O2 Del Method 03/28/22 08:00 O2 Flow Rate 3.5 03/28/22 04:00 Oxygen Flow Rate 3 03/25/22 08:40 BMI result Body Mass Index 40.5 Const: Other: General - no acute distress, appears comfortable Cardiovascular - regular rate and rhythm, S1-S2 Lungs - ndim sounds Abdomen - soft, nontender, no rebound or guarding Extremities - L BKA Neuro - awake and alert, no focal deficits Objective Data Active Medications Acetaminophen (Acetaminophen 325 Mg Tablet) 650 mg PO Q6H PRN PRN Reason: Pain, Mild (Pain Scale 1-3) Last Admin: 03/27/22 16:03 Dose: 650 mg Documented By: LEVI Amlodipine Besylate (Amlodipine Besylate 10 Mg Tablet) 10 mg PO DAILY [facility]; Protocol Last Admin: 03/28/22 09:56 Dose: 10 mg Documented By: EUGENIA Aspirin (Aspirin Enteric Coated 81 Mg Tablet.) 81 mg PO BEDTIME [facility] Last Admin: 03/27/22 21:20 Dose: 81 mg Documented By: IVETTE Atorvastatin Calcium (Atorvastatin Calcium 80 Mg Tablet) 80 mg PO BEDTIME [facility] Last Admin: 03/27/22 21:20 Dose: 80 mg Documented By: IVETTE Calcium Carbonate/Cholecalciferol (Calcium + Vitamin D 250 Mg Tablet) 500 mg PO BID [facility] Last Admin: 03/28/22 09:55 Dose: 500 mg Documented By: EUGENIA Carvedilol (Carvedilol 6.25 Mg Tablet) 6.25 mg PO BID [facility]; Protocol Last Admin: 03/28/22 09:55 Dose: 6.25 mg Documented By: EUGENIA Clopidogrel Bisulfate (Clopidogrel Bisulfate 75 Mg Tablet) 75 mg PO DAILY [facility] Last Admin: 03/27/22 09:28 Dose: 75 mg Documented By: LEVI Dexamethasone Sodium Phosphate (Dexamethasone Sod Phosphate 4 Mg/Ml Vial) 6 mg IVPUSH DAILY [facility] Last Admin: 03/28/22 09:51 Dose: 6 mg Documented By: EUGENIA Dextrose (Dextrose 50 % 25 Gm/50 Ml Syringe) 25 gm IVPUSH Q15M PRN; Protocol PRN Reason: per Hypoglycemia Standing Ord. Docusate Sodium (Docusate Sodium 100 Mg Capsule) 100 mg PO DAILY PRN PRN Reason: Constipation Famotidine (Famotidine 20 Mg Tablet) 40 mg PO BID [facility] Last Admin: 03/28/22 09:55 Dose: 40 mg Documented By: EUGENIA Glucose (Glucose Gel 15 Gm Gel..Gram.) 15 gm PO Q15M PRN; Protocol PRN Reason: per Hypoglycemia Standing Ord. Heparin Sodium (Porcine) (Heparin Sodium,Porcine 5,000 Unit/Ml Vial) 5,000 unit SUBCUT Q12H [facility] Last Admin: 03/28/22 09:56 Dose: 5,000 unit Documented By: EUGENIA Insulin Glargine (Insulin Glargine,Hum.Rec.Anlog 100 Unit/Ml 10 Ml Vial) 10 unit SUBCUT DAILY [facility] Last Admin: 03/28/22 09:49 Dose: 10 unit Documented By: EUGENIA Insulin Human Lispro (Insulin Lispro 100 Unit/Ml 3 Ml Vial) 0 unit SUBCUT QIDACHS [facility]; Protocol Last Admin: 03/28/22 09:49 Dose: 2 unit Documented By: EUGENIA Magnesium Oxide (Magnesium Oxide 400 Mg Tablet) 400 mg PO BID [facility] Last Admin: 03/28/22 09:54 Dose: 400 mg Documented By: EUGENIA Sertraline HCl (Sertraline Hcl 50 Mg Tablet) 50 mg PO DAILY [facility] Last Admin: 03/28/22 09:56 Dose: 50 mg Documented By: EUGENIA Sodium Bicarbonate (Sodium Bicarbonate 650 Mg Tablet) 650 mg PO BID [facility] Last Admin: 03/28/22 09:54 Dose: 650 mg Documented By: EUGENIA Sodium Chloride (0.9 % Sodium Chloride Flush 3 Ml Syringe) [facility] Last Admin: 03/28/22 09:51 Dose: 3 ml Documented By: EUGENIA Trazodone HCl (Trazodone Hcl 50 Mg Tablet) 50 mg PO BEDTIME [facility] Last Admin: 03/27/22 21:21 Dose: 50 mg Documented By: IVETTE Labs CBC & Chem 7: 03/28/22 10:10 03/28/22 06:56 Labs: Laboratory Results - last 24 hr 03/27/22 03/27/22 03/27/22 11:21 15:05 15:23 MCV MCH MCHC RDW Plt Count MPV Absolute Nucleated RBC Nucleated RBC % (auto) PT INR Anion Gap Estim Creat Clear Calc Estimated GFR POC Glucose 209 H 276 H Random Glucose 336 H Calcium Lactate Dehydrogenase 236 H Total Protein 7.0 03/27/22 03/28/22 03/28/22 20:04 06:56 06:56 MCV MCH MCHC RDW Plt Count MPV Absolute Nucleated RBC Nucleated RBC % (auto) PT 14.5 H INR 1.3 H Anion Gap 15 Estim Creat Clear Calc 12.0 Estimated GFR 11 POC Glucose 264 H Random Glucose 224 H Calcium 8.6 Lactate Dehydrogenase Total Protein 03/28/22 03/28/22 07:28 10:10 MCV 82.1 MCH 25.7 L MCHC 31.3 RDW 14.8 Plt Count 280 MPV 10.9 Absolute Nucleated RBC 0.000 Nucleated RBC % (auto) 0.0 PT INR Anion Gap Estim Creat Clear Calc Estimated GFR POC Glucose 192 H Random Glucose Calcium Lactate Dehydrogenase Total Protein Assessment and Plan (1) COVID-19: Status: Acute (2) Chronic heart failure with preserved ejection fraction (HFpEF): Status: Acute Plan This is a 67 yo F with a PMH of CKD4, DM, HFpEF, HTN, CVA, L BKA, Mood disorder who presented to the ED with complaints of cough. She is found to be GIL on CKD, COVID pneumonia with hypoxia, possible CHF. She is admitted for further work up and treatment. 1. Acute Respiratory Failure with hypoxia multifactorial including covid, chf, pleural effusion was requiring 3L, now on RA this AM monitor x 24 hours to ensure o2 stability 2. COVID 19 continue Decadron -- day #3 trend inflammatory biomakers 3. GIL on CKD stage 4 SCr baseline beteween 2-3; now presented to SCr > 4 marginal improvement initially treated with IV diuretics but after cardiology evaluation -- diuretics on hold will d/w renal today re: diuretics 4. Chronic HFpEF initially felt that her presented was, in part, due to acute CHF, but this has been ruled out now continue baseline meds except diuretics 5. L pleural effusion small per ultrasound and possibly loculated to d/w IR re: possibility of drainage 5. Prior CVA continue DAPT after thoracentesis statin 6. DM basal + bolus 7. Uncontrolled HTN will add small dose po hydralazine 25mg TID (avoiding uptitrating BB as her HR is already on the lower side) continue other regiment 8. Anemia of chronic disease (due to CKD) monitor Full Code DVT pptx, subcut heparin Quality Stroke Does the patient have a stroke diagnosis?: No VTE Prior VTE?: No VTE Risk Level:: Medical - moderate - high VTE Device Contraindication: Treatment Not Indicated VTE Drug Contraindication: N/A - Med Ordered
[2022-03-28 11:28] LABS: Glucose, Whole Blood 261 mg/dL (60-115)
[2022-03-28 11:56] VITALS: BP 138/61; PULSE 67; RESP 20; TEMP 36.8; O2SAT 93
[2022-03-28 16:00] VITALS: BP 124/68; PULSE 65; RESP 18; TEMP 37.1; O2SAT 87
[2022-03-28 16:20] LABS: Glucose, Whole Blood 303 mg/dL (60-115)
--- NOTE | 2022-03-28 16:32 | P.CNID_ITS ---
History of Present Illness Data of Consult Service Date: 03/28/22 Requesting physician: Maria Luisa Matos Primary Care Provider: Alexys Avila MD HPI Reason for consult: cough She presents with cough and shortness of breath for a month. She is on oxygen. She is COVID positive. Review of Systems Review of Systems: Yes Unobtainable due to mental condition PMFSH Past Medical History Medical History Acute on chronic renal failure Acute respiratory failure with hypoxia Anemia Blister of finger without infection Cholecystectomy planned CKD (chronic kidney disease) CKD (chronic kidney disease) stage 3, GFR 30-59 ml/min CKD (chronic kidney disease) stage 4, GFR 15-29 ml/min CKD (chronic kidney disease), stage IV Congestive heart failure Diabetes Diabetes mellitus Elevated d-dimer Essential hypertension Gastroparesis GERD (gastroesophageal reflux disease) Hand pain Hernia HLD (hyperlipidemia) HTN (hypertension) Hypomagnesemia Irritable bowel syndrome with diarrhea Lightheadedness Low blood pressure Non-ST elevated myocardial infarction Nonischemic cardiomyopathy Other and unspecified hyperlipidemia Pharyngoesophageal dysphagia Family History Family History Father Lung cancer Mother Diabetes HTN (hypertension) Heart disease Sister Diabetes Heart disease Brother Heart disease Son Diabetes Daughter Diabetes Surgical History Surgical History H/O: hysterectomy History of esophagogastroduodenoscopy (EGD) Hx of colonoscopy Hx of eye surgery Social History Social History Household Members: Other Household Members Other:: SNF Housing: [facility] Do you presently have visiting nurse or other home services: No Unable to assess alcohol history related to: Unable to respond Alcohol intake: never Patient Tobacco Use Status: Never used Tobacco Second Hand Smoke Exposure: No Advance Directives Date on File: 02/02/22 service: No Current occupational status: disabled Meds Allergies Allergy/AdvReac Type Severity Reaction Status Date / Time latex [LATEX] Allergy Intermediate ITCHY Verified 06/29/21 13:08 Active Medications: Current Medications Acetaminophen (Acetaminophen 325 Mg Tablet) 650 mg PO Q6H PRN PRN Reason: Pain, Mild (Pain Scale 1-3) Last Admin: 03/27/22 16:03 Dose: 650 mg Amlodipine Besylate (Amlodipine Besylate 10 Mg Tablet) 10 mg PO DAILY [facility]; Protocol Last Admin: 03/28/22 09:56 Dose: 10 mg Aspirin (Aspirin Enteric Coated 81 Mg Tablet.Dr) 81 mg PO BEDTIME [facility] Last Admin: 03/27/22 21:20 Dose: 81 mg Atorvastatin Calcium (Atorvastatin Calcium 80 Mg Tablet) 80 mg PO BEDTIME [facility] Last Admin: 03/27/22 21:20 Dose: 80 mg Calcium Carbonate/Cholecalciferol (Calcium + Vitamin D 250 Mg Tablet) 500 mg PO BID [facility] Last Admin: 03/28/22 09:55 Dose: 500 mg Carvedilol (Carvedilol 6.25 Mg Tablet) 6.25 mg PO BID [facility]; Protocol Last Admin: 03/28/22 09:55 Dose: 6.25 mg Clopidogrel Bisulfate (Clopidogrel Bisulfate 75 Mg Tablet) 75 mg PO DAILY [facility] Last Admin: 03/27/22 09:28 Dose: 75 mg Dexamethasone Sodium Phosphate (Dexamethasone Sod Phosphate 4 Mg/Ml Vial) 6 mg IVPUSH DAILY [facility] Last Admin: 03/28/22 09:51 Dose: 6 mg Dextrose (Dextrose 50 % 25 Gm/50 Ml Syringe) 25 gm IVPUSH Q15M PRN; Protocol PRN Reason: per Hypoglycemia Standing Ord. Docusate Sodium (Docusate Sodium 100 Mg Capsule) 100 mg PO DAILY PRN PRN Reason: Constipation Famotidine (Famotidine 20 Mg Tablet) 40 mg PO BID [facility] Last Admin: 03/28/22 09:55 Dose: 40 mg Glucose (Glucose Gel 15 Gm Gel..Gram.) 15 gm PO Q15M PRN; Protocol PRN Reason: per Hypoglycemia Standing Ord. Heparin Sodium (Porcine) (Heparin Sodium,Porcine 5,000 Unit/Ml Vial) 5,000 unit SUBCUT Q12H [facility] Last Admin: 03/28/22 09:56 Dose: 5,000 unit Hydralazine HCl (Hydralazine Hcl 25 Mg Tablet) 25 mg PO TID [facility]; Protocol Insulin Glargine (Insulin Glargine,Hum.Rec.Anlog 100 Unit/Ml 10 Ml Vial) 10 unit SUBCUT DAILY [facility] Last Admin: 06/27/22 09:49 Dose: 10 unit Insulin Human Lispro (Insulin Lispro 100 Unit/Ml 3 Ml Vial) 0 unit SUBCUT QIDACHS [facility]; Protocol Last Admin: 03/28/22 12:56 Dose: 6 unit Magnesium Oxide (Magnesium Oxide 400 Mg Tablet) 400 mg PO BID [facility] Last Admin: 03/28/22 09:54 Dose: 400 mg Sertraline HCl (Sertraline Hcl 50 Mg Tablet) 50 mg PO DAILY [facility] Last Admin: 03/28/22 09:56 Dose: 50 mg Sodium Bicarbonate (Sodium Bicarbonate 650 Mg Tablet) 650 mg PO BID [facility] Last Admin: 03/28/22 09:54 Dose: 650 mg Sodium Chloride (0.9 % Sodium Chloride Flush 3 Ml Syringe) [facility] Admin: 03/28/22 09:51 Dose: 3 ml Trazodone HCl (Trazodone Hcl 50 Mg Tablet) 50 mg PO BEDTIME [facility] Last Admin: 03/27/22 21:21 Dose: 50 mg Home Medications Medication Instructions Recorded Confirmed Last Taken Type aspirin 81 mg tablet,delayed 81 mg PO BEDTIME 06/20/21 03/25/22 01/30/22 History release atorvastatin 80 mg tablet 80 mg PO BEDTIME 06/20/21 03/25/22 01/30/22 History calcium carbonate 600 mg-vitamin 1 tab PO BID 06/20/21 03/25/22 01/30/22 History D3 10 mcg (400 unit) tablet clopidogrel 75 mg tablet 75 mg PO DAILY 06/20/21 03/25/22 01/30/22 History magnesium oxide 400 mg (241.3 mg 400 mg PO BID 06/20/21 03/25/22 01/30/22 History magnesium) tablet sertraline 50 mg tablet 50 mg PO DAILY 06/20/21 03/25/22 01/30/22 History trazodone 50 mg tablet 50 mg PO BEDTIME 06/20/21 03/25/22 01/30/22 History insulin glargine 100 unit/mL (3 10 unit subcut DAILY 03/25/22 03/25/22 Unknown History mL) subcutaneous pen (Lantus Solostar U-100 Insulin) Physical Exam Vital Signs: Vital Signs: Last Vital Signs Temp 98.3 F 03/28/22 11:56 Pulse 67 03/28/22 11:56 Resp 20 03/28/22 11:56 BP 138/61 03/28/22 11:56 Pulse Ox 93 03/28/22 11:56 O2 Del Method 03/28/22 11:56 O2 Flow Rate 3.5 03/28/22 11:56 Oxygen Flow Rate 3 03/25/22 08:40 BMI result Body Mass Index 40.5 Const: General: cooperative HEENT: Head: Yes normal to inspection Resp: Effort & Inspection: normal respiratory effort Cardio: Rate: regular rate GI: Palpation (GI): nontender Extrem: General: Yes normal to inspection Results Labs CBC & Chem 7: 03/28/22 10:10 03/28/22 06:56 Labs: Short CBC 03/28/22 Range/Units 10:10 WBC 11.0 H (4.8-10.8) X10*3/uL Hgb 7.9 L (12.0-16.0) g/dl Hct 25.2 L (37.0-47.0) % Plt Count 280 (160-400) X10*3/uL BMP 03/28/22 06:56 Sodium 138 Potassium 5.0 Chloride 103 Carbon Dioxide 25 BUN 67 H Creatinine 4.16 H* Calcium 8.6 Microbiology Microbiology Results: Microbiology 03/25/22 05:02 Blood - Venous Blood Culture - Preliminary No growth after 48 hours. 03/25/22 05:02 Blood - Venous Blood Culture - Preliminary No growth after 48 hours. Assessment and Plan (1) COVID-19: Status: Acute She has unknown duration of COVID Plan Can give Dexamethasone No Remdesvir,duration unknown.
--- NOTE | 2022-03-28 17:03 | PM.PNNEP ---
Subjective Subjective Date of Service: 03/28/22 Interval history: seen and examined feels the same, no significant difference denies sob/cough Physical Exam Vital Signs: Vital Signs: Last Vital Signs Temp 98.7 F 03/28/22 16:00 Pulse 65 03/28/22 16:00 Resp 18 03/28/22 16:00 BP 124/68 03/28/22 16:00 Pulse Ox 87 L 03/28/22 16:00 O2 Del Method 03/28/22 16:00 O2 Flow Rate 2.5 03/28/22 16:00 Oxygen Flow Rate 3 03/25/22 08:40 BMI result Body Mass Index 40.5 Const: General: cooperative, comfortable and no acute distress Orientation/consciousness: patient oriented x3 HEENT: Head: Yes normocephalic and Yes atraumatic Neck: Neck: Yes no JVD Resp: Auscultation: crackles Cardio: Jugular venous distension: no JVD Rate: regular rate Rhythm: regular rhythm Heart sounds: S1 normal heart sound present and S2 normal heart sound present GI: Auscultation: normal bowel sounds Neuro: General: patient oriented x3 and no focal motor deficits Extrem: General: Yes no clubbing, cyanosis or edema Objective Data Labs CBC & Chem 7: 03/28/22 10:10 03/28/22 06:56 Labs: Laboratory Results - last 24 hr 03/27/22 03/28/22 03/28/22 20:04 06:56 06:56 WBC RBC Hgb Hct MCV MCH MCHC RDW Plt Count MPV Absolute Nucleated RBC Nucleated RBC % (auto) PT 14.5 H INR 1.3 H Sodium 138 Potassium 5.0 Chloride 103 Carbon Dioxide 25 Anion Gap 15 BUN 67 H Creatinine 4.16 H* Estim Creat Clear Calc 12.0 Estimated GFR 11 POC Glucose 264 H Random Glucose 224 H Calcium 8.6 03/28/22 03/28/22 03/28/22 07:28 10:10 11:21 WBC 11.0 H RBC 3.07 L Hgb 7.9 L Hct 25.2 L MCV 82.1 MCH 25.7 L MCHC 31.3 RDW 14.8 Plt Count 280 MPV 10.9 Absolute Nucleated RBC 0.000 Nucleated RBC % (auto) 0.0 PT INR Sodium Potassium Chloride Carbon Dioxide Anion Gap BUN Creatinine Estim Creat Clear Calc Estimated GFR POC Glucose 192 H 261 H Random Glucose Calcium 03/28/22 16:13 WBC RBC Hgb Hct MCV MCH MCHC RDW Plt Count MPV Absolute Nucleated RBC Nucleated RBC % (auto) PT INR Sodium Potassium Chloride Carbon Dioxide Anion Gap BUN Creatinine Estim Creat Clear Calc Estimated GFR POC Glucose 303 H Random Glucose Calcium Microbiology Microbiology Results: Microbiology 03/25/22 05:02 Blood - Venous Blood Culture - Preliminary No growth after 48 hours. 03/25/22 05:02 Blood - Venous Blood Culture - Preliminary No growth after 48 hours. Procedures Date of Service Date of Service: 03/28/22 Assessment & Plan Assessment and plan (1) Acute worsening of stage 4 chronic kidney disease: Status: Acute Plan CKD 4 at baseline. Non compliant with office appointments Currently GIL due to COVID( cytokine storm) and CR Syndrome No reason to suspect GN/AIN/ Obstructive Uropathy Renal functions marginally better but not yet at prior BL. C/W diuresis/supportive care. Keep I=O Time Spent With Patient Time: Total time spent is greater than 50% in coordination of care (as documented) at patient's floor/unit and/or counseling patient: Progress Note: Quality Stroke Does the patient have a stroke diagnosis?: No
[2022-03-28] MEDS: hydrALAZINE HCl 25 MG TABLET PO ×2 (17:14→22:52)
[2022-03-28 20:00] VITALS: BP 151/65; PULSE 64; RESP 18; TEMP 36.9; O2SAT 94
[2022-03-28 20:25] LABS: Glucose, Whole Blood 310 mg/dL (60-115)
[2022-03-28] MEDS: traZODone HCL 50 MG TABLET PO (22:52)
[2022-03-28] MEDS: Atorvastatin Calcium 80 MG TABLET PO (22:52)
[2022-03-29] VITALS (7 sets, daily range): BP systolic 136–178; BP diastolic 56–76; PULSE 60–66; RESP 16–22; TEMP 36.2–36.9; O2SAT 90–93
[2022-03-29 07:20] LABS: Glucose, Whole Blood 234 mg/dL (60-115)
[2022-03-29] MEDS: Insulin Lispro 100 UNIT/ML 3 ML VIAL SUBCUT ×3 (08:00→17:30)
[2022-03-29] MEDS: Insulin Glargine,Hum.rec.anlog 100 UNIT/ML 10 ML VIAL 10 UNIT SUBCUT (09:13)
[2022-03-29 11:31] LABS: Glucose, Whole Blood 231 mg/dL (60-115)
[2022-03-29] MEDS: 0.9 % Sodium Chloride Flush 3 ML SYRINGE IVFLUSH ×2 (12:03→15:32)
[2022-03-29] MEDS: amLODIPine Besylate 10 MG TABLET PO (12:03)
[2022-03-29] MEDS: Calcium + Vitamin D 250 MG TABLET 500 MG PO (12:04)
[2022-03-29] MEDS: carvediloL 6.25 MG TABLET PO (12:04)
[2022-03-29] MEDS: dexAMETHasone sod phosphate 4 MG/ML VIAL 6 MG IVPUSH (12:04)
[2022-03-29] MEDS: Famotidine 20 MG TABLET 40 MG PO (12:04)
[2022-03-29] MEDS: hydrALAZINE HCl 25 MG TABLET PO ×2 (12:05→15:32)
[2022-03-29] MEDS: Sertraline HCL 50 MG TABLET PO (12:05)
[2022-03-29] MEDS: Sodium Bicarbonate 650 MG TABLET PO (12:05)
[2022-03-29] MEDS: Heparin Sodium,Porcine 5,000 UNIT/ML VIAL 5000 UNIT SUBCUT (12:05)
[2022-03-29] MEDS: Magnesium Oxide 400 MG TABLET PO (12:05)
--- NOTE | 2022-03-29 15:46 | P.PNIM_ITS ---
Subjective Subjective Date of Service: 03/29/22 Interval History: No acute issues overnight Review of Systems Denies chest pain Denies shortness Denies nausea vomiting diarrhea Denies fever chills Physical Exam Vital Signs: Vital Signs: Last Vital Signs Temp 98.4 F 03/29/22 15:45 Pulse 63 03/29/22 15:45 Resp 16 03/29/22 15:45 BP 136/56 L 03/29/22 15:45 Pulse Ox 90 L 03/29/22 15:45 O2 Del Method 03/29/22 15:45 O2 Flow Rate 2.5 03/29/22 00:00 Oxygen Flow Rate 3 03/25/22 08:40 BMI result Body Mass Index 40.5 Const: Other: Awake alert no acute distress Resp: Other: Clear to auscultation all wilkes no rales rhonchi or wheezes Cardio: Other: No S4; positive S1-S2; no S3 murmurs rubs gallops GI: Other: Soft nontender nondistended with normoactive bowel sounds Extrem: Other: No edema bilaterally Objective Data Active Medications Acetaminophen (Acetaminophen 325 Mg Tablet) 650 mg PO Q6H PRN PRN Reason: Pain, Mild (Pain Scale 1-3) Last Admin: 03/27/22 16:03 Dose: 650 mg Documented By: LEVI Amlodipine Besylate (Amlodipine Besylate 10 Mg Tablet) 10 mg PO DAILY [facility]; Protocol Last Admin: 03/29/22 12:03 Dose: 10 mg Documented By: KAROL Aspirin (Aspirin Enteric Coated 81 Mg Tablet.) 81 mg PO BEDTIME [facility] Last Admin: 03/27/22 21:20 Dose: 81 mg Documented By: IVETTE Atorvastatin Calcium (Atorvastatin Calcium 80 Mg Tablet) 80 mg PO BEDTIME [facility] Last Admin: 03/28/22 22:52 Dose: 80 mg Documented By: ROMARIO Calcium Carbonate/Cholecalciferol (Calcium + Vitamin D 250 Mg Tablet) 500 mg PO BID [facility] Last Admin: 03/29/22 12:04 Dose: 500 mg Documented By: KAROL Carvedilol (Carvedilol 6.25 Mg Tablet) 6.25 mg PO BID [facility]; Protocol Last Admin: 03/29/22 12:04 Dose: 6.25 mg Documented By: KAROL Clopidogrel Bisulfate (Clopidogrel Bisulfate 75 Mg Tablet) 75 mg PO DAILY [facility] Last Admin: 03/27/22 09:28 Dose: 75 mg Documented By: LEVI Dexamethasone Sodium Phosphate (Dexamethasone Sod Phosphate 4 Mg/Ml Vial) 6 mg IVPUSH DAILY [facility] Last Admin: 03/29/22 12:04 Dose: 6 mg Documented By: KAROL Dextrose (Dextrose 50 % 25 Gm/50 Ml Syringe) 25 gm IVPUSH Q15M PRN; Protocol PRN Reason: per Hypoglycemia Standing Ord. Docusate Sodium (Docusate Sodium 100 Mg Capsule) 100 mg PO DAILY PRN PRN Reason: Constipation Famotidine (Famotidine 20 Mg Tablet) 40 mg PO BID [facility] Last Admin: 03/29/22 12:04 Dose: 40 mg Documented By: KAROL Glucose (Glucose Gel 15 Gm Gel..Gram.) 15 gm PO Q15M PRN; Protocol PRN Reason: per Hypoglycemia Standing Ord. Heparin Sodium (Porcine) (Heparin Sodium,Porcine 5,000 Unit/Ml Vial) 5,000 unit SUBCUT Q12H [facility] Last Admin: 03/29/22 12:05 Dose: 5,000 unit Documented By: KAROL Hydralazine HCl (Hydralazine Hcl 25 Mg Tablet) 25 mg PO TID [facility]; Protocol Last Admin: 03/29/22 15:32 Dose: 25 mg Documented By: KAROL Insulin Glargine (Insulin Glargine,Hum.Rec.Anlog 100 Unit/Ml 10 Ml Vial) 10 unit SUBCUT DAILY [facility] Last Admin: 03/29/22 09:13 Dose: 10 unit Documented By: KAROL Insulin Human Lispro (Insulin Lispro 100 Unit/Ml 3 Ml Vial) 0 unit SUBCUT QIDACHS [facility]; Protocol Last Admin: 03/29/22 12:07 Dose: 4 unit Documented By: KAROL Magnesium Oxide (Magnesium Oxide 400 Mg Tablet) 400 mg PO BID [facility] Last Admin: 03/29/22 12:05 Dose: 400 mg Documented By: KAROL Sertraline HCl (Sertraline Hcl 50 Mg Tablet) 50 mg PO DAILY [facility] Last Admin: 03/29/22 12:05 Dose: 50 mg Documented By: KAROL Sodium Bicarbonate (Sodium Bicarbonate 650 Mg Tablet) 650 mg PO BID [facility] Last Admin: 03/29/22 12:05 Dose: 650 mg Documented By: KAROL Sodium Chloride (0.9 % Sodium Chloride Flush 3 Ml Syringe) 3 ml IVFLUSH QSHIFT [facility] Last Admin: 03/29/22 15:32 Dose: 3 ml Documented By: KAROL Trazodone HCl (Trazodone Hcl 50 Mg Tablet) 50 mg PO BEDTIME [facility] Last Admin: 03/28/22 22:52 Dose: 50 mg Documented By: ROMARIO Labs CBC & Chem 7: 03/28/22 10:10 03/28/22 06:56 Labs: Laboratory Results - last 24 hr 03/28/22 03/28/22 03/29/22 16:13 20:17 07:11 POC Glucose 303 H 310 H 234 H 03/29/22 11:26 POC Glucose 231 H Assessment and Plan (1) Acute respiratory failure with hypoxia: Status: Acute (2) COVID-19: Status: Acute (3) GIL (acute kidney injury): Status: Acute (4) Chronic heart failure with preserved ejection fraction (HFpEF): Status: Acute Plan 67 yo F with a PMH of CKD4, DM, HFpEF, HTN, CVA, L BKA, Mood disorder who presented to the ED with complaints of cough. She is found to be GIL on CKD, COVID pneumonia with hypoxia, possible CHF. Improved. 1. Acute Respiratory Failure with hypoxia -currently satting appropriate at room air -DC to SNF likely in a.m. 2. COVID 19 - Decadron (4) 3. GIL on CKD stage 4 -follow renals/divalents -hold diuresis 4. Chronic HFpEF -stable -follow clinically 5. L pleural effusion -asymptomatic -chest XRay in am -restart plavix in am pending CXR 6. DMII -acceptable control given steroids -Lispro sliding scale -Lantus as ordered 7. HTN -acceptable control on current therapies -adjust as indicated Full Code DVT pptx, subcut heparin Quality Stroke Does the patient have a stroke diagnosis?: No VTE Prior VTE?: No VTE Risk Level:: Medical - moderate - high VTE Device Contraindication: Treatment Not Indicated VTE Drug Contraindication: N/A - Med Ordered
[2022-03-29 16:42] LABS: MANUAL DIFF FLAG NO
[2022-03-29 16:45] LABS: Basophils Percent Auto 0.1 % (0-2); Hematocrit 26.2 % (37.0-47.0); Imm Gran Abs Auto 0.16 X10*3/uL (0.00-0.03); Imm Gran Pct Auto 1.6 % (0.0-0.4); Lymphocytes Absolute Auto 0.8 X10*3/uL (1.2-4.9); Lymphocytes Percent Auto 8.4 % (20-40); Mean Corpuscular HGB Conc 30.5 g/dl (31.0-35.0); Mean Corpuscular Hemoglobin 24.6 pg (27.0-33.0); Mean Corpuscular Volume 80.6 fL (80.0-98.0); Mean Platelet Volume 10.4 fL (9.4-12.3); Monocytes Absolute Auto 0.3 X10*3/uL (0.1-1.2); Monocytes Percent Auto 2.9 % (2-11); Neutrophils Absolute Auto 8.7 x10*3/uL (2.0-8.3); Platelet Count 289 X10*3/uL (160-400); Red Blood Count 3.25 X10*6/uL (4.20-5.50); Red Cell Distribution Width 14.6 % (11.0-16.0)
[2022-03-29 16:47] LABS: Glucose, Whole Blood 285 mg/dL (60-115)
--- NOTE | 2022-03-29 18:39 | PM.PNNEP ---
Subjective Subjective Date of Service: 03/29/22 Interval history: No acute issues overnight Physical Exam Vital Signs: Vital Signs: Last Vital Signs Temp 98.4 F 03/29/22 15:45 Pulse 63 03/29/22 15:45 Resp 16 03/29/22 15:45 BP 136/56 L 03/29/22 15:45 Pulse Ox 90 L 03/29/22 15:45 O2 Del Method 03/29/22 15:45 O2 Flow Rate 2.5 03/29/22 00:00 Oxygen Flow Rate 3 03/25/22 08:40 BMI result Body Mass Index 40.5 Const: General: comfortable and no acute distress Orientation/consciousness: patient oriented x3 HEENT: Head: Yes normocephalic and Yes atraumatic Resp: Auscultation: clear to auscultation bilaterally Cardio: Jugular venous distension: no JVD Rate: regular rate Rhythm: regular rhythm Heart sounds: S1 normal heart sound present and S2 normal heart sound present Neuro: General: patient oriented x3 Objective Data Labs CBC & Chem 7: 03/29/22 16:24 03/28/22 06:56 Labs: Laboratory Results - last 24 hr 03/28/22 03/29/22 03/29/22 20:17 07:11 11:26 WBC RBC Hgb Hct MCV MCH MCHC RDW Plt Count MPV Immature Gran % (Auto) Neut % (Auto) Lymph % (Auto) [place] % (Auto) Eos % (Auto) Baso % (Auto) Lymph # (Auto) [place] # (Auto) Eos # (Auto) Baso # (Auto) Abs Immat Gran (auto) Absolute Neuts (auto) Absolute Nucleated RBC Nucleated RBC % (auto) POC Glucose 310 H 234 H 231 H 03/29/22 03/29/22 16:24 16:42 WBC 10.0 RBC 3.25 L Hgb 8.0 L Hct 26.2 L MCV 80.6 MCH 24.6 L MCHC 30.5 L RDW 14.6 Plt Count 289 MPV 10.4 Immature Gran % (Auto) 1.6 H Neut % (Auto) 87.0 H Lymph % (Auto) 8.4 L [place] % (Auto) 2.9 Eos % (Auto) 0.0 Baso % (Auto) 0.1 Lymph # (Auto) 0.8 L [place] # (Auto) 0.3 Eos # (Auto) 0.0 Baso # (Auto) 0.0 Abs Immat Gran (auto) 0.16 H Absolute Neuts (auto) 8.7 H Absolute Nucleated RBC 0.000 Nucleated RBC % (auto) 0.0 POC Glucose 285 H Microbiology Microbiology Results: Microbiology 03/25/22 05:02 Blood - Venous Blood Culture - Preliminary No growth after 48 hours. 03/25/22 05:02 Blood - Venous Blood Culture - Preliminary No growth after 48 hours. Procedures Date of Service Date of Service: 03/29/22 Assessment & Plan Assessment and plan (1) Acute worsening of stage 4 chronic kidney disease: Status: Acute Plan CKD 4 at baseline. Non compliant with office appointments Currently GIL due to COVID( cytokine storm) and CR Syndrome No reason to suspect GN/AIN/ Obstructive Uropathy Renal functions marginally better but not yet at prior BL. Keep I=O Will need to re-evaluate diuretic regimen as outpatient Time Spent With Patient Time: Total time spent is greater than 50% in coordination of care (as documented) at patient's floor/unit and/or counseling patient: Progress Note: Quality Stroke Does the patient have a stroke diagnosis?: No
[2022-03-29 20:33] LABS: Glucose, Whole Blood 287 mg/dL (60-115)
[2022-03-30] VITALS (7 sets, daily range): BP systolic 145–164; BP diastolic 48–90; PULSE 61–102; RESP 18–22; TEMP 36.5–37.2; O2SAT 92–97
[2022-03-30] MEDS: Sodium Bicarbonate 650 MG TABLET PO ×3 (00:05→22:19)
[2022-03-30] MEDS: Calcium + Vitamin D 250 MG TABLET 500 MG PO ×3 (00:05→22:19)
[2022-03-30] MEDS: traZODone HCL 50 MG TABLET PO ×2 (00:06→22:19)
[2022-03-30] MEDS: Insulin Lispro 100 UNIT/ML 3 ML VIAL SUBCUT ×5 (00:06→22:20)
[2022-03-30] MEDS: Magnesium Oxide 400 MG TABLET PO ×3 (00:06→22:19)
[2022-03-30] MEDS: Atorvastatin Calcium 80 MG TABLET PO ×2 (00:06→22:19)
[2022-03-30] MEDS: carvediloL 6.25 MG TABLET PO ×3 (00:06→22:19)
[2022-03-30] MEDS: hydrALAZINE HCl 25 MG TABLET PO ×3 (00:06→14:51)
[2022-03-30] MEDS: Famotidine 20 MG TABLET 40 MG PO ×3 (00:06→22:19)
[2022-03-30] MEDS: 0.9 % Sodium Chloride Flush 3 ML SYRINGE IVFLUSH ×4 (00:07→22:20)
[2022-03-30 07:02] LABS: MANUAL DIFF FLAG NO
[2022-03-30 07:05] LABS: Basophils Percent Auto 0.1 % (0-2); Hematocrit 27.4 % (37.0-47.0); Hemoglobin 8.4 g/dl (12.0-16.0); Imm Gran Abs Auto 0.21 X10*3/uL (0.00-0.03); Imm Gran Pct Auto 1.8 % (0.0-0.4); Lymphocytes Absolute Auto 1.8 X10*3/uL (1.2-4.9); Lymphocytes Percent Auto 15.5 % (20-40); Mean Corpuscular HGB Conc 30.7 g/dl (31.0-35.0); Mean Corpuscular Hemoglobin 24.7 pg (27.0-33.0); Mean Corpuscular Volume 80.6 fL (80.0-98.0); Mean Platelet Volume 10.3 fL (9.4-12.3); Monocytes Percent Auto 8.7 % (2-11); Neutrophils Absolute Auto 8.7 x10*3/uL (2.0-8.3); Neutrophils Percent Auto 73.9 % (45-73); Platelet Count 303 X10*3/uL (160-400); Red Cell Distribution Width 14.6 % (11.0-16.0); White Blood Count 11.8 X10*3/uL (4.8-10.8)
[2022-03-30 07:28] LABS: Alanine Aminotransferase 25 U/L (0-31); Albumin Level 3.5 g/dL (3.5-5.0); Alkaline Phosphatase 174 U/L (39-117); Anion Gap 17 (12-20); Aspartate Amino Transferase 21 U/L (5-31); Bilirubin Total 0.4 mg/dL (0.0-1.0); Blood Urea Nitrogen 77 mg/dL (9-16); Calcium 8.7 mg/dL (8.4-10.2); Carbon Dioxide 25 mmol/L (22-29); Chloride 102 mmol/L (96-108); Creatinine Clr Calc Pharmacy 11.9; Estimated Glomerular Filt Rate 11; Glucose Fasting 261 mg/dL (60-99); Potassium 5.5 mmol/L (3.3-5.1); Sodium 138 mmol/L (135-145); Total Protein 7.2 g/dL (6.5-8.0)
[2022-03-30 08:05] LABS: Glucose, Whole Blood 231 mg/dL (60-115)
[2022-03-30] MEDS: dexAMETHasone sod phosphate 4 MG/ML VIAL 6 MG IVPUSH (08:33)
[2022-03-30] MEDS: Insulin Glargine,Hum.rec.anlog 100 UNIT/ML 10 ML VIAL 10 UNIT SUBCUT (08:33)
[2022-03-30] MEDS: amLODIPine Besylate 10 MG TABLET PO (08:34)
[2022-03-30] MEDS: Sertraline HCL 50 MG TABLET PO (08:34)
--- NOTE | 2022-03-30 09:11 | P.CDIC_ITS ---
CDI Concurrent Query Documentation Clarification: PHYSICIAN'S DOCUMENTATION REQUEST Date of Query: 03/30/22 0911 Patient Name: Debbie Guerra Admit Date: 03/25/22 Dear Doctor, A review of the medical record indicates additional documentation may be needed. Please review below and update the documentation accordingly. Clinical Indicators: Risk Factors/Clinical Indicators/Treatments BMI: 40.5 4' 10 in height Nursing notes height and weight - Extreme obesity Class III If possible, please provide an associated diagnosis related to the abnormal BMI, such as: For a BMI >= 40: * Overweight * Obesity * Due to excess calories * Drug induced * Due to other cause * Severe or Morbid Obesity * With alveolar hypoventilation * Without alveolar hypoventilation Or: * BMI is not significant * Other (please specify) * Unable to determine Use of terms such as suspected, likely, concern for, or probable (associated with a specific diagnosis that is being evaluated, monitored, or treated as if it exists) are acceptable and can be coded in the inpatient setting, when documented at the time of discharge. Thank you, Kylie Alonso [facility], CDIS Extension: [phone] Please use your independent medical judgment in providing your response. THIS QUERY IS PART OF THE PERMANENT MEDICAL RECORD Provider Response: Other Other Diagnosis: Unable to determine
[2022-03-30 11:58] LABS: Glucose, Whole Blood 261 mg/dL (60-115)
[2022-03-30] MEDS: Heparin Sodium,Porcine 5,000 UNIT/ML VIAL 5000 UNIT SUBCUT ×2 (12:23→22:20)
--- NOTE | 2022-03-30 13:49 | P.PNNP_ITS ---
Subjective Subjective Date of Service: 03/30/22 Interval history: No acute issues overnight Physical Exam Vital Signs: Vital Signs: Last Vital Signs Temp 98.9 F 03/30/22 11:40 Pulse 62 03/30/22 11:40 Resp 18 03/30/22 11:40 BP 160/52 H 03/30/22 11:40 Pulse Ox 92 03/30/22 11:40 O2 Del Method 03/30/22 11:40 O2 Flow Rate 2.5 03/29/22 00:00 Oxygen Flow Rate 3 03/25/22 08:40 BMI result Body Mass Index 40.5 Const: General: cooperative, comfortable and no acute distress HEENT: Head: Yes normocephalic and Yes atraumatic Neck: Neck: Yes no JVD Resp: Auscultation: crackles Cardio: Jugular venous distension: no JVD Rate: regular rate Rhythm: regular rhythm Heart sounds: S1 normal heart sound present and S2 normal heart sound present GI: Auscultation: normal bowel sounds Neuro: General: no focal motor deficits Extrem: General: Yes no clubbing, cyanosis or edema Objective Data Labs CBC & Chem 7: 03/30/22 06:51 03/30/22 06:51 Labs: Laboratory Results - last 24 hr 03/29/22 03/29/22 03/29/22 16:24 16:42 20:28 WBC 10.0 RBC 3.25 L Hgb 8.0 L Hct 26.2 L MCV 80.6 MCH 24.6 L MCHC 30.5 L RDW 14.6 Plt Count 289 MPV 10.4 Immature Gran % (Auto) 1.6 H Neut % (Auto) 87.0 H Lymph % (Auto) 8.4 L [place] % (Auto) 2.9 Eos % (Auto) 0.0 Baso % (Auto) 0.1 Lymph # (Auto) 0.8 L [place] # (Auto) 0.3 Eos # (Auto) 0.0 Baso # (Auto) 0.0 Abs Immat Gran (auto) 0.16 H Absolute Neuts (auto) 8.7 H Absolute Nucleated RBC 0.000 Nucleated RBC % (auto) 0.0 Sodium Potassium Chloride Carbon Dioxide Anion Gap BUN Creatinine Estim Creat Clear Calc Estimated GFR POC Glucose 285 H 287 H Fasting Glucose Calcium Total Bilirubin AST ALT Alkaline Phosphatase Total Protein Albumin 0603/30/22 03/30/22 06:51 06:51 07:57 WBC 11.8 H RBC 3.40 L Hgb 8.4 L Hct 27.4 L MCV 80.6 MCH 24.7 L MCHC 30.7 L RDW 14.6 Plt Count 303 MPV 10.3 Immature Gran % (Auto) 1.8 H Neut % (Auto) 73.9 H Lymph % (Auto) 15.5 L [place] % (Auto) 8.7 Eos % (Auto) 0.0 Baso % (Auto) 0.1 Lymph # (Auto) 1.8 [place] # (Auto) 1.0 Eos # (Auto) 0.0 Baso # (Auto) 0.0 Abs Immat Gran (auto) 0.21 H Absolute Neuts (auto) 8.7 H Absolute Nucleated RBC 0.000 Nucleated RBC % (auto) 0.0 Sodium 138 Potassium 5.5 H Chloride 102 Carbon Dioxide 25 Anion Gap 17 BUN 77 H Creatinine 4.18 H* Estim Creat Clear Calc 11.9 Estimated GFR 11 POC Glucose 231 H Fasting Glucose 261 H Calcium 8.7 Total Bilirubin 0.4 AST 21 D ALT 25 Alkaline Phosphatase 174 H Total Protein 7.2 Albumin 3.5 03/30/22 11:46 WBC RBC Hgb Hct MCV MCH MCHC RDW Plt Count MPV Immature Gran % (Auto) Neut % (Auto) Lymph % (Auto) [place] % (Auto) Eos % (Auto) Baso % (Auto) Lymph # (Auto) [place] # (Auto) Eos # (Auto) Baso # (Auto) Abs Immat Gran (auto) Absolute Neuts (auto) Absolute Nucleated RBC Nucleated RBC % (auto) Sodium Potassium Chloride Carbon Dioxide Anion Gap BUN Creatinine Estim Creat Clear Calc Estimated GFR POC Glucose 261 H Fasting Glucose Calcium Total Bilirubin AST ALT Alkaline Phosphatase Total Protein Albumin Microbiology Microbiology Results: Microbiology 03/25/22 05:02 Blood - Venous Blood Culture - Final No growth after 5 days. 03/25/22 05:02 Blood - Venous Blood Culture - Final No growth after 5 days. Procedures Date of Service Date of Service: 03/30/22 Assessment & Plan Assessment and plan (1) GIL (acute kidney injury): Status: Acute Assessment and Plan: CKD 4 at baseline. Non compliant with office appointments Currently GIL due to COVID( cytokine storm) and CR Syndrome No reason to suspect GN/AIN/ Obstructive Uropathy Renal function worse but has leveled off. No urgent indication for [employer] Unclear if this is now her new BL. If so, we will need to discuss access planning for HD moving forward. Keep I=O. Hold loop diuretics for now. BP still elevated. Would up-titrate hydralazine to 50 mg tid. avoid acei/arb, aldactone for now. Low K diet. Suggest starting 10 Gm lokelma daily qhs. Will need to re-evaluate diuretic regimen as outpatient (2) Acute hyperkalemia: Status: Acute Time Spent With Patient Time: Total time spent is greater than 50% in coordination of care (as documented) at patient's floor/unit and/or counseling patient: Progress Note: Quality Stroke Does the patient have a stroke diagnosis?: No
[2022-03-30 16:02] LABS: Glucose, Whole Blood 275 mg/dL (60-115)
--- NOTE | 2022-03-30 17:38 | HO.PM.IMPN ---
Subjective Subjective Date of Service: 03/30/22 Interval History: No acute issues overnight Review of Systems Denies chest pain Denies shortness Denies nausea vomiting diarrhea Denies fever chills Physical Exam Vital Signs: Vital Signs: Last Vital Signs Temp 97.7 F 03/30/22 15:51 Pulse 67 03/30/22 15:51 Resp 18 03/30/22 15:51 BP 162/77 H 03/30/22 15:51 Pulse Ox 97 03/30/22 15:51 O2 Del Method 03/30/22 15:51 O2 Flow Rate 2 03/30/22 15:51 Oxygen Flow Rate 3 03/25/22 08:40 BMI result Body Mass Index 40.5 Const: Other: Awake alert no acute distress Resp: Other: Clear to auscultation all wilkes no rales rhonchi or wheezes Cardio: Other: No S4; positive S1-S2; no S3 murmurs rubs gallops GI: Other: Soft nontender nondistended with normoactive bowel sounds Extrem: Other: No edema bilaterally Objective Data Active Medications Acetaminophen (Acetaminophen 325 Mg Tablet) 650 mg PO Q6H PRN PRN Reason: Pain, Mild (Pain Scale 1-3) Last Admin: 03/27/22 16:03 Dose: 650 mg Documented By: LEVI Amlodipine Besylate (Amlodipine Besylate 10 Mg Tablet) 10 mg PO DAILY [facility]; Protocol Last Admin: 03/30/22 08:34 Dose: 10 mg Documented By: MELINDA Aspirin (Aspirin Enteric Coated 81 Mg Tablet.) 81 mg PO BEDTIME [facility] Last Admin: 03/27/22 21:20 Dose: 81 mg Documented By: IVETTE Atorvastatin Calcium (Atorvastatin Calcium 80 Mg Tablet) 80 mg PO BEDTIME [facility] Last Admin: 03/30/22 00:06 Dose: 80 mg Documented By: ROMARIO Calcium Carbonate/Cholecalciferol (Calcium + Vitamin D 250 Mg Tablet) 500 mg PO BID [facility] Last Admin: 03/30/22 08:34 Dose: 500 mg Documented By: MELINDA Carvedilol (Carvedilol 6.25 Mg Tablet) 6.25 mg PO BID [facility]; Protocol Last Admin: 03/30/22 08:34 Dose: 6.25 mg Documented By: MELINDA Clopidogrel Bisulfate (Clopidogrel Bisulfate 75 Mg Tablet) 75 mg PO DAILY [facility] Last Admin: 03/27/22 09:28 Dose: 75 mg Documented By: LEVI Dexamethasone Sodium Phosphate (Dexamethasone Sod Phosphate 4 Mg/Ml Vial) 6 mg IVPUSH DAILY [facility] Last Admin: 03/30/22 08:33 Dose: 6 mg Documented By: MELINDA Dextrose (Dextrose 50 % 25 Gm/50 Ml Syringe) 25 gm IVPUSH Q15M PRN; Protocol PRN Reason: per Hypoglycemia Standing Ord. Docusate Sodium (Docusate Sodium 100 Mg Capsule) 100 mg PO DAILY PRN PRN Reason: Constipation Famotidine (Famotidine 20 Mg Tablet) 40 mg PO BID [facility] Last Admin: 03/30/22 08:34 Dose: 40 mg Documented By: MELINDA Glucose (Glucose Gel 15 Gm Gel..Gram.) 15 gm PO Q15M PRN; Protocol PRN Reason: per Hypoglycemia Standing Ord. Heparin Sodium (Porcine) (Heparin Sodium,Porcine 5,000 Unit/Ml Vial) 5,000 unit SUBCUT Q12H [facility] Last Admin: 03/30/22 12:23 Dose: 5,000 unit Documented By: MELINDA Hydralazine HCl (Hydralazine Hcl 50 Mg Tablet) 50 mg PO TID [facility]; Protocol Insulin Glargine (Insulin Glargine,Hum.Rec.Anlog 100 Unit/Ml 10 Ml Vial) 10 unit SUBCUT DAILY [facility] Last Admin: 03/30/22 08:33 Dose: 10 unit Documented By: MELINDA Insulin Human Lispro (Insulin Lispro 100 Unit/Ml 3 Ml Vial) 0 unit SUBCUT QIDACHS [facility]; Protocol Last Admin: 03/30/22 12:23 Dose: 6 unit Documented By: MELINDA Magnesium Oxide (Magnesium Oxide 400 Mg Tablet) 400 mg PO BID [facility] Last Admin: 03/30/22 08:34 Dose: 400 mg Documented By: MELINDA Sertraline HCl (Sertraline Hcl 50 Mg Tablet) 50 mg PO DAILY [facility] Last Admin: 03/30/22 08:34 Dose: 50 mg Documented By: MELINDA Sodium Bicarbonate (Sodium Bicarbonate 650 Mg Tablet) 650 mg PO BID [facility] Last Admin: 03/30/22 08:34 Dose: 650 mg Documented By: HO.DOBROB Sodium Chloride (0.9 % Sodium Chloride Flush 3 Ml Syringe) 3 ml IVFLUSH QSHIFT [facility] Last Admin: 03/30/22 08:34 Dose: 3 ml Documented By: DOBROB Trazodone HCl (Trazodone Hcl 50 Mg Tablet) 50 mg PO BEDTIME [facility] Last Admin: 03/30/22 00:06 Dose: 50 mg Documented By: ROMARIO Labs CBC & Chem 7: 03/30/22 06:51 03/30/22 06:51 Labs: Laboratory Results - last 24 hr 03/29/22 03/30/22 03/30/22 20:28 06:51 06:51 MCV 80.6 MCH 24.7 L MCHC 30.7 L RDW 14.6 Plt Count 303 MPV 10.3 Immature Gran % (Auto) 1.8 H Neut % (Auto) 73.9 H Lymph % (Auto) 15.5 L [place] % (Auto) 8.7 Eos % (Auto) 0.0 Baso % (Auto) 0.1 Lymph # (Auto) 1.8 [place] # (Auto) 1.0 Eos # (Auto) 0.0 Baso # (Auto) 0.0 Abs Immat Gran (auto) 0.21 H Absolute Neuts (auto) 8.7 H Absolute Nucleated RBC 0.000 Nucleated RBC % (auto) 0.0 Anion Gap 17 Estim Creat Clear Calc 11.9 Estimated GFR 11 POC Glucose 287 H Fasting Glucose 261 H Calcium 8.7 Total Bilirubin 0.4 AST 21 D ALT 25 Alkaline Phosphatase 174 H Total Protein 7.2 Albumin 3.5 03/30/22 03/30/22 03/30/22 07:57 11:46 15:51 MCV MCH MCHC RDW Plt Count MPV Immature Gran % (Auto) Neut % (Auto) Lymph % (Auto) [place] % (Auto) Eos % (Auto) Baso % (Auto) Lymph # (Auto) [place] # (Auto) Eos # (Auto) Baso # (Auto) Abs Immat Gran (auto) Absolute Neuts (auto) Absolute Nucleated RBC Nucleated RBC % (auto) Anion Gap Estim Creat Clear Calc Estimated GFR POC Glucose 231 H 261 H 275 H Fasting Glucose Calcium Total Bilirubin AST ALT Alkaline Phosphatase Total Protein Albumin Microbiology Microbiology Results: Microbiology 03/25/22 05:02 Blood Culture - Final Blood - Venous No growth after 5 days. 03/25/22 05:02 Blood Culture - Final Blood - Venous No growth after 5 days. Assessment and Plan (1) Acute respiratory failure with hypoxia: Status: Acute (2) COVID-19: Status: Acute (3) Acute worsening of stage 4 chronic kidney disease: Status: Acute (4) Chronic heart failure with preserved ejection fraction (HFpEF): Status: Acute Plan 67 yo F with a PMH of CKD4, DM, HFpEF, HTN, CVA, L BKA, Mood disorder who presented to the ED with complaints of cough. She is found to be GIL on CKD, COVID pneumonia with hypoxia, possible CHF. Improved. 1. Acute Respiratory Failure with hypoxia -currently satting appropriate at room air 2. COVID 19 - Decadron (5) 3. GIL on CKD stage 4 -follow renals/divalents -hold diuresis 4. Chronic HFpEF -stable -follow clinically 5. L pleural effusion -asymptomatic -chest XRay in am -restart plavix in am pending CXR 6. DMII -acceptable control given steroids -Lispro sliding scale -Lantus as ordered 7. HTN -acceptable control on current therapies -adjust as indicated Full Code DVT pptx, subcut heparin Quality Stroke Does the patient have a stroke diagnosis?: No VTE Prior VTE?: No VTE Risk Level:: Medical - moderate - high VTE Device Contraindication: Treatment Not Indicated VTE Drug Contraindication: N/A - Med Ordered
[2022-03-30 19:52] LABS: Glucose, Whole Blood 333 mg/dL (60-115)
[2022-03-30] MEDS: hydrALAZINE HCl 50 MG TABLET PO (22:19)
[2022-03-31 03:16] VITALS: BP 127/63; PULSE 63; RESP 19; TEMP 36.9; O2SAT 98
[2022-03-31 07:02] LABS: MANUAL DIFF FLAG NO
[2022-03-31 07:06] LABS: Basophils Percent Auto 0.1 % (0-2); Hematocrit 26.8 % (37.0-47.0); Imm Gran Abs Auto 0.13 X10*3/uL (0.00-0.03); Imm Gran Pct Auto 1.1 % (0.0-0.4); Lymphocytes Absolute Auto 1.7 X10*3/uL (1.2-4.9); Lymphocytes Percent Auto 14.8 % (20-40); Mean Corpuscular HGB Conc 29.9 g/dl (31.0-35.0); Mean Corpuscular Hemoglobin 24.1 pg (27.0-33.0); Mean Corpuscular Volume 80.7 fL (80.0-98.0); Mean Platelet Volume 10.8 fL (9.4-12.3); Monocytes Percent Auto 8.5 % (2-11); Neutrophils Absolute Auto 8.6 x10*3/uL (2.0-8.3); Neutrophils Percent Auto 75.5 % (45-73); Platelet Count 270 X10*3/uL (160-400); Red Blood Count 3.32 X10*6/uL (4.20-5.50); Red Cell Distribution Width 14.6 % (11.0-16.0); White Blood Count 11.4 X10*3/uL (4.8-10.8)
[2022-03-31 07:16] VITALS: BP 155/67; PULSE 62; RESP 18; TEMP 36.6; O2SAT 94
[2022-03-31 07:31] LABS: Glucose, Whole Blood 236 mg/dL (60-115)
[2022-03-31 07:53] LABS: Alanine Aminotransferase 30 U/L (0-31); Albumin Level 3.5 g/dL (3.5-5.0); Alkaline Phosphatase 176 U/L (39-117); Anion Gap 15 (12-20); Aspartate Amino Transferase 23 U/L (5-31); Bilirubin Total 0.4 mg/dL (0.0-1.0); Blood Urea Nitrogen 80 mg/dL (9-16); Calcium 8.7 mg/dL (8.4-10.2); Carbon Dioxide 26 mmol/L (22-29); Chloride 103 mmol/L (96-108); Estimated Glomerular Filt Rate 11; Glucose Fasting 219 mg/dL (60-99); Potassium 5.1 mmol/L (3.3-5.1); Sodium 139 mmol/L (135-145); Total Protein 6.8 g/dL (6.5-8.0)
[2022-03-31] MEDS: 0.9 % Sodium Chloride Flush 3 ML SYRINGE IVFLUSH (08:11)
[2022-03-31] MEDS: Famotidine 20 MG TABLET 40 MG PO (08:12)
[2022-03-31] MEDS: Calcium + Vitamin D 250 MG TABLET 500 MG PO (08:12)
[2022-03-31] MEDS: Sodium Bicarbonate 650 MG TABLET PO (08:12)
[2022-03-31] MEDS: Magnesium Oxide 400 MG TABLET PO (08:12)
[2022-03-31] MEDS: hydrALAZINE HCl 50 MG TABLET PO (08:12)
[2022-03-31] MEDS: Sertraline HCL 50 MG TABLET PO (08:13)
[2022-03-31] MEDS: amLODIPine Besylate 10 MG TABLET PO (08:13)
[2022-03-31] MEDS: carvediloL 6.25 MG TABLET PO (08:13)
[2022-03-31] MEDS: Insulin Lispro 100 UNIT/ML 3 ML VIAL SUBCUT ×2 (08:14→12:46)
[2022-03-31] MEDS: Insulin Glargine,Hum.rec.anlog 100 UNIT/ML 10 ML VIAL 10 UNIT SUBCUT (08:14)
[2022-03-31 11:10] VITALS: BP 110/56; PULSE 61; RESP 18; TEMP 36.8; O2SAT 96
[2022-03-31] MEDS: dexAMETHasone sod phosphate 4 MG/ML VIAL 6 MG IVPUSH (11:17)
[2022-03-31 11:24] LABS: Glucose, Whole Blood 199 mg/dL (60-115)
[2022-03-31] MEDS: Heparin Sodium,Porcine 5,000 UNIT/ML VIAL 5000 UNIT SUBCUT (12:45)
--- NOTE | 2022-03-31 12:48 | P.DS_ITS ---
DS: Providers Provider Date of Service: 03/31/22 Date of admission: 03/25/22 10:50 Date of discharge: 03/31/22 Primary care physician: Alexys Avila MD Consults: 03/25/22 15:08 Consult to Infectious Diseases Routine Consulting Provider: Jocy Joya Reason for consultation: covid 19 pna 03/25/22 15:16 Consult to Nephrology Routine Consulting Provider: Gamaliel Jimenez Reason for consultation: diallo on ckd 03/26/22 11:54 Consult to Cardiology Routine Consulting Provider: Luis Bal Reason for consultation: CHF Has provider been notified: No DS: Diagnosis Discharge Diagnosis (1) Acute respiratory failure with hypoxia: Status: Acute (2) COVID-19: Status: Acute (3) Acute worsening of stage 4 chronic kidney disease: Status: Acute (4) Chronic heart failure with preserved ejection fraction (HFpEF): Status: Acute DS: Summary Hospital Course Hospital Course: This is a 67-year-old [place] Islander speaking female with multiple medical issues who presents to the emergency department from [facility] due to cough.? She was admitted to the hospital from March 09 to March 18 initially for hypoglycemia as well as acute CHF.? She was discharged to care home facility on the .? She reports that she has continued to have coughing which is primarily dry in nature.? She denies any fever, chills.? She reports pain in her chest especially with coughing, denies pleuritic component of pain.? She denies shortness of breath at this time.? She was tested for COVID-19 on the day of her discharge it was negative at that time.? Today in the emergency department her COVID-19 test is positive.? Chest x-ray shows moderate left pleural effusion which is increased when compared to previous as well as left base atelectasis or consolidation suspicious for pneumonia.? She is currently afebrile, lab work reveals no leukocytosis.? Creatinine was elevated at 4.39.? Troponin indeterminate and 19.6, BNP elevated at 1687.? She was treated with IV Lasix, IV Decadron, IV ceftriaxone and azithromycin. Hospital Course Admitted to the hospital given IV Decadron /Lasix/ceftriaxone and azithromycin. Complete course of antibiotics without issue. Will need 4 days of Decadron to complete therapy. This time she is medically acceptable for transfer to care home facility for therapy Time Spent with Patient Time attestation: Total time spent providing and/or coordinating discharge services: Discharge coordination time: Greater than 30 minutes Quality: Safe Use of Opioids Does Pt have an Active Cancer Diagnosis on the Problem List?: No Quality: Stroke Does the patient have a stroke diagnosis?: No Physical Exam Vital Signs: Vital Signs: Last Vital Signs Temp 98.2 F 03/31/22 11:10 Pulse 61 03/31/22 11:10 Resp 18 03/31/22 11:10 BP 110/56 L 03/31/22 11:10 Pulse Ox 96 03/31/22 11:10 O2 Del Method 03/31/22 11:10 O2 Flow Rate 2 03/31/22 11:10 Oxygen Flow Rate 3 03/25/22 08:40 BMI result Body Mass Index 40.5 Const: Other: Awake alert no acute distress Resp: Other: Clear to auscultation all wilkes no rales rhonchi or wheezes Cardio: Other: No S4; positive S1-S2; no S3 murmurs rubs gallops GI: Other: Soft nontender nondistended with normoactive bowel sounds Extrem: Other: No edema bilaterally DS: Data Data Completed and Pending Completed studies during hospitalization [Text1]: Procedures Dilation of Esophagus, Via Natural or Artificial Opening Endoscopic (01/31/22) Dilation of Upper Esophagus, Via Natural or Artificial Opening Endoscopic (08/16/21) Introduction of Other Thrombolytic into Peripheral Vein, Percutaneous Approach (06/05/21) Transfusion of Nonautologous Red Blood Cells into Peripheral Vein, Percutaneous Approach (12/24/20) Labs on day of discharge: Laboratory Results - last 24 hr 03/30/22 03/30/22 03/31/22 15:51 19:45 06:25 WBC 11.4 H RBC 3.32 L Hgb 8.0 L Hct 26.8 L MCV 80.7 MCH 24.1 L MCHC 29.9 L RDW 14.6 Plt Count 270 MPV 10.8 Immature Gran % (Auto) 1.1 H Neut % (Auto) 75.5 H Lymph % (Auto) 14.8 L Boyle % (Auto) 8.5 Eos % (Auto) 0.0 Baso % (Auto) 0.1 Lymph # (Auto) 1.7 [place] # (Auto) 1.0 Eos # (Auto) 0.0 Baso # (Auto) 0.0 Abs Immat Gran (auto) 0.13 H Absolute Neuts (auto) 8.6 H Absolute Nucleated RBC 0.000 Nucleated RBC % (auto) 0.0 Sodium Potassium Chloride Carbon Dioxide Anion Gap BUN Creatinine Estim Creat Clear Calc Estimated GFR POC Glucose 275 H 333 H Fasting Glucose Calcium Total Bilirubin AST ALT Alkaline Phosphatase Total Protein Albumin 03/31/22 03/31/22 03/31/22 06:25 07:19 11:12 WBC RBC Hgb Hct MCV MCH MCHC RDW Plt Count MPV Immature Gran % (Auto) Neut % (Auto) Lymph % (Auto) Boyle % (Auto) Eos % (Auto) Baso % (Auto) Lymph # (Auto) Boyle # (Auto) Eos # (Auto) Baso # (Auto) Abs Immat Gran (auto) Absolute Neuts (auto) Absolute Nucleated RBC Nucleated RBC % (auto) Sodium 139 Potassium 5.1 Chloride 103 Carbon Dioxide 26 Anion Gap 15 BUN 80 H Creatinine 4.16 H* Estim Creat Clear Calc 12.0 Estimated GFR 11 POC Glucose 236 H 199 H Fasting Glucose 219 H Calcium 8.7 Total Bilirubin 0.4 AST 23 ALT 30 Alkaline Phosphatase 176 H Total Protein 6.8 Albumin 3.5 Discharge Plan Discharge Patient Disposition: er [facility] Discharge Diagnosis: Acute hypoxic respiratory failure secondary to COVID-19 number Referrals: Alexys Avila MD [Primary Care Provider] - 1 Week Discharge Medications: New dexamethasone [Decadron] 6 mg tablet 6 mg PO DAILY Qty: 4 0RF Continued furosemide [Lasix] 40 mg tablet 40 mg PO BID 90 Days Qty: 180 0RF Rx Instructions: Please call and schedule cardiology appt. carvedilol 6.25 mg tablet 6.25 mg PO BID Qty: 60 5RF Rx Instructions: must administer with a meal/food - Take one tablet twice daily atorvastatin 80 mg tablet 80 mg PO BEDTIME trazodone 50 mg tablet 50 mg PO BEDTIME clopidogrel 75 mg tablet 75 mg PO DAILY aspirin 81 mg tablet,delayed release (DR/EC) 81 mg PO BEDTIME magnesium oxide 400 mg (241.3 mg magnesium) tablet 400 mg PO BID sertraline 50 mg tablet 50 mg PO DAILY calcium carbonate-vitamin D3 600 mg(1,500mg) -400 unit tablet 1 tab PO BID amoxicillin 250 mg capsule 250 mg PO Q12H 5 Days Qty: 10 0RF insulin glargine [Lantus Solostar U-100 Insulin] 100 unit/mL (3 mL) insulin pen 10 unit subcut DAILY amlodipine 10 mg Tablet 10 mg PO DAILY 30 Days Qty: 30 0RF Protocol: Hold for SBP< HOLD for SBP < : 90 famotidine 40 mg tablet 40 mg PO BID 30 Days Qty: 60 0RF sodium bicarbonate 650 mg Tablet 650 mg PO BID 30 Days Qty: 60 0RF sodium polystyrene sulfonate Powder 15 g PO DAILY 30 Days Qty: 454 0RF Discharge Orders: Discharge Order (Routine); Ordered 03/31/22 Ordered By: Parag Jarquin Diet: Advance to usual diet Activity on Discharge: As tolerated Stand Alone Forms: Patient Portal Discharge page Care Plan Goals: Complete a course of oral Decadron Health Concerns: Resume all pre-hospital medications Plan of Treatment: As per receiving facility Assessment: See discharge summary
== END 2022-03-31 14:30 | DRG 177 ==
LOC: HO.ED 06:05 → HO.EDOVER 11:08 → HO.IMC 17:32
PROVIDERS: Family Medicine; Hospitalist; Internal Medicine; Nurse Practitioner Acute Care; Admitting Provider Physician Assistant Medical; Emergency Provider Emergency Medicine; PCP Internal Medicine; Visit Provider Hospitalist
DX: U07.1 COVID-19 (principal); J12.82 Pneumonia due to coronavirus disease 2019; J96.21 Acute and chronic respiratory failure with hypoxia; I13.0 Hypertensive heart and chronic kidney disease with heart failure and stage 1 through stage 4 chronic kidney disease, or unspecified chronic kidney disease; N17.9 Acute kidney failure, unspecified; N18.4 Chronic kidney disease, stage 4 (severe); Z68.41 Body mass index [BMI] 40.0-44.9, adult; I42.8 Other cardiomyopathies; J91.8 Pleural effusion in other conditions classified elsewhere; I50.32 Chronic diastolic (congestive) heart failure; E11.22 Type 2 diabetes mellitus with diabetic chronic kidney disease; Z99.81 Dependence on supplemental oxygen; K21.9 Gastro-esophageal reflux disease without esophagitis; E78.5 Hyperlipidemia, unspecified; I25.2 Old myocardial infarction; D63.1 Anemia in chronic kidney disease; Z86.73 Personal history of transient ischemic attack (TIA), and cerebral infarction without residual deficits; Z91.040 Latex allergy status; Z91.19 Patient's noncompliance with other medical treatment and regimen; Z79.4 Long term (current) use of insulin; Z79.02 Long term (current) use of antithrombotics/antiplatelets; Z79.899 Other long term (current) drug therapy
CPT/HCPCS: 36415; 71045; 76604; 80048; 80053; 80076; 82803; 82947; 83605; 83615; 83880; 84145; 84155; 84484; 85025; 85027; 85610; 86140; 87040; 87635; 93005; 96365; 96367; 96375; 99285; J0456; J0696; J1100; J1940

== ENCOUNTER 2022-05-05 15:04 | Inpatient (IN) | payer OTHER, SELFPAY ==
--- NOTE | ~2022-05-05 | XR_ITS ---
EXAMINATION: XR CHEST CLINICAL INFORMATION: Chest pain. Patient is combative. COMPARISON: Chest 03/25/2022 TECHNIQUE: Frontal view of the chest was obtained. FINDINGS: Patient is rotated to the right side. The lungs are somewhat expanded with patchy opacity right lung base. Heart size and pulmonary vascularity is normal. No evidence of pleural effusion. No gross bony abnormality seen. XR/XR chest 1V IMPRESSION: Patchy opacity right lung base likely atelectasis or scarring with mild elevation of right hemidiaphragm. Rest of the lungs are clear..
--- NOTE | ~2022-05-05 | US_ITS ---
EXAMINATION: US ABDOMEN LIMITED CLINICAL INFORMATION: Transaminitis. COMPARISON: Ultrasound abdomen limited 03/11/2022 TECHNIQUE: Real-time imaging of the right upper quadrant abdominal viscera. FINDINGS: PANCREAS: Visualized portions of the pancreas are unremarkable. The pancreatic tail is obscured by bowel gas. LIVER: Normal. The liver is normal in size. The liver contour is normal. Parenchymal echogenicity is normal. No focal hepatic lesion. There is no intrahepatic biliary duct dilatation seen. GALLBLADDER: Surgically absent. COMMON BILE DUCT: Normal in caliber measuring 0.5 cm in diameter. RIGHT KIDNEY: Normal. No hydronephrosis. No renal calculi or focal parenchymal lesions. The kidney measures 10.5 cm in maximum dimension. FREE FLUID: None. US/US abdomen limited IMPRESSION: Status post cholecystectomy. No intra or extrahepatic biliary duct dilatation. Visualized portions of the pancreas are unremarkable. The pancreatic tail is obscured by bowel gas.
[2022-05-05 15:28] VITALS: BP 128/44; BP 132/80; PULSE 70; PULSE 86; RESP 20; TEMP 36.7; O2SAT 100; O2SAT 98; BMI 30.5
[2022-05-05 15:46] LABS: Glucose, Whole Blood 269 mg/dL (60-115)
--- NOTE | 2022-05-05 16:23 | ECG_ITS ---
Test Reason : DIZZY Blood Pressure : / mmHG Vent. Rate : 065 BPM Atrial Rate : 065 BPM P-R Int : 154 ms QRS Dur : 128 ms QT Int : 514 ms P-R-T Axes : 060 -12 183 degrees QTc Int : 534 ms Normal sinus rhythm Possible Left atrial enlargement Left ventricular hypertrophy with QRS widening ( R in aVL , Heriberto product ) Marked T-wave abnormality, consider inferolateral ischemia Abnormal ECG When compared with ECG of 25-MAR-2022 03:56, Questionable change in QRS axis ST more depressed Lateral leads T wave inversion less evident in Inferior leads T wave inversion more evident in Lateral leads Referred By: Cecilia Church Electronically Signed By:LUCRECIA PILLAI MD
--- NOTE | 2022-05-05 16:32 | ED.GENADULT ---
HPI - General Adult General Chief complaint: Altered Mental Status Stated complaint: VOMITING,INCR CONFUSION FROM SNF PER EMS Time Seen by Provider: 05/05/22 15:48 Source: patient and EMS Mode of arrival: EMS Limitations: altered mental status History of Present Illness HPI narrative: Patient comes to emergency room via EMS. Patient coming from SNF for altered mental status. The staff reports that the patient is more altered than her normal, patient has been vomiting. Patient states that she has no abdominal pain, no diarrhea, admits to vomiting earlier today. Patient states that she occasionally feels dizzy, and then occasionally vomits. At this time, she has no chest pain or shortness of breath. Related Data Home Medications Medication Instructions Recorded Confirmed aspirin 81 mg tablet,delayed 81 mg PO BEDTIME 06/20/21 03/25/22 release atorvastatin 80 mg tablet 80 mg PO BEDTIME 06/20/21 03/25/22 calcium carbonate 600 mg-vitamin 1 tab PO BID 06/20/21 03/25/22 D3 10 mcg (400 unit) tablet clopidogrel 75 mg tablet 75 mg PO DAILY 06/20/21 03/25/22 magnesium oxide 400 mg (241.3 mg 400 mg PO BID 06/20/21 03/25/22 magnesium) tablet sertraline 50 mg tablet 50 mg PO DAILY 06/20/21 03/25/22 trazodone 50 mg tablet 50 mg PO BEDTIME 06/20/21 03/25/22 insulin glargine 100 unit/mL (3 10 unit subcut DAILY 03/25/22 03/25/22 mL) subcutaneous pen (Lantus Solostar U-100 Insulin) Previous Rx's Medication Instructions Recorded furosemide 40 mg tablet (Lasix) 40 mg PO BID 90 days #180 tabs 02/18/22 carvedilol 6.25 mg tablet 6.25 mg PO BID #60 tabs 02/21/22 amlodipine 10 mg tablet 10 mg PO DAILY 30 days #30 tabs 03/03/22 famotidine 40 mg tablet 40 mg PO BID 30 days #60 tabs 03/03/22 sodium bicarbonate 650 mg tablet 650 mg PO BID 30 days #60 tabs 03/03/22 sodium polystyrene sulfonate 15 g PO DAILY 30 days #454 grams 03/03/22 amoxicillin 250 mg capsule 250 mg PO Q12H 5 days #10 caps 06/17/22 dexamethasone 6 mg tablet 6 mg PO DAILY #4 tabs 03/31/22 (Decadron) Allergies Allergy/AdvReac Type Severity Reaction Status Date / Time latex [LATEX] Allergy Intermediate ITCHY Verified 06/29/21 13:08 Review of Systems Review of Systems: Constitutional : Denies fever chills. Staff reports as her mental status ENT/Mouth : No ear pain, no sore throat Eyes: No Eye Pain, No Swelling, No Redness, No Foreign Body, No Discharge, No Vision Changes Cardiovascular : No Chest Pain, No SOB, No Dyspnea on Exertion, No Orthopnea, No Edema, No Palpitations Respiratory : No Cough, No Sputum, No Wheezing, No Smoke Exposure, No Dyspnea Gastrointestinal : Complaining of vomiting and nausea, No Diarrhea, No Constipation, No abdominal Pain, No Hematochezia, No Melena Genitourinary : no irregular bleeding, No Dysuria, No Urinary Frequency, No Hematuria, No Urinary Incontinence, No Urgency, No Flank Pain, No Urinary Flow Changes, No Hesitancy Musculoskeletal : No joint pain, No Myalgias, No Joint Swelling Skin : No Skin Lesions, No rash Neuro : No Weakness, No Numbness, No Paresthesias, No Loss of Consciousness, No Dizziness, No Headache Psych : No Anxiety/Panic, No Depression, No SI/HI/AH/VH, No Social Issues, Heme/Lymph: No Bruising, No Bleeding,No Lymphadenopathy Endocrine : No Polyuria, No Polydipsia, No Temperature Intolerance PMFSH Past Medical History Medical History Acute on chronic renal failure Acute worsening of stage 4 chronic kidney disease Anemia Blister of finger without infection Cholecystectomy planned Chronic heart failure with preserved ejection fraction (HFpEF) CKD (chronic kidney disease) CKD (chronic kidney disease) stage 3, GFR 30-59 ml/min CKD (chronic kidney disease) stage 4, GFR 15-29 ml/min CKD (chronic kidney disease), stage IV Congestive heart failure Diabetes Diabetes mellitus Elevated d-dimer Essential hypertension Gastroparesis GERD (gastroesophageal reflux disease) Hand pain Hernia HLD (hyperlipidemia) HTN (hypertension) Hypomagnesemia Irritable bowel syndrome with diarrhea Lightheadedness Low blood pressure Non-ST elevated myocardial infarction Nonischemic cardiomyopathy Other and unspecified hyperlipidemia Pharyngoesophageal dysphagia Type 2 diabetes mellitus with unspecified complications Surgical History H/O: hysterectomy History of esophagogastroduodenoscopy (EGD) Hx of colonoscopy Hx of eye surgery Family History Family History Father Lung cancer Mother Diabetes HTN (hypertension) Heart disease Sister Diabetes Heart disease Brother Heart disease Son Diabetes Daughter Diabetes Social History Social History Household Members: Other Household Members Other:: SNF Housing: Skilled Nursing Do you presently have visiting nurse or other home services: No Unable to assess alcohol history related to: Unable to respond Alcohol intake: never Patient Tobacco Use Status: Never used Tobacco Second Hand Smoke Exposure: No Advance Directives: Yes Advance Directives on File: Yes Advance Directives Date on File: 02/02/22 service: No Current occupational status: disabled Physical Exam ED Vital Signs: Vital Signs - 24 hr 05/05/22 15:28 05/05/22 17:01 05/05/22 19:36 Temperature 98.0 F 98.4 F Pulse Rate 86 73 65 Respiratory Rate 20 16 14 Blood Pressure 128/44 L 130/44 L 127/65 Pulse Oximetry 100 98 Oxygen Delivery Method Nasal Cannula Room Air Room Air 05/05/22 20:23 Temperature Pulse Rate 66 Respiratory Rate 22 H Blood Pressure 133/71 Pulse Oximetry 98 Oxygen Delivery Method Room Air BMI result Body Mass Index 30.5 Const Other: Appearance: Alert. Oriented X2. No acute distress. Eyes: Pupils equal, round and reactive to light. No nystagmus ENT: Pharynx normal. Neck: Normal inspection. Neck supple. No lymph nodes noted. No crepitus CVS: Normal heart rate and rhythm. Pulses normal. Normal S1 and S2 Respiratory: No respiratory distress. Breath sounds normal. No Wheezing. No rales Abdomen: Soft and nontender. No rigidity. No distention. Skin: Skin warm and dry. Normal skin color. Normal skin turgor. Extremities: No lower extremity edema. No Lacerations. No Rash Neuro: Oriented X 3. No motor deficit. No sensory deficit. Moving all extremities. No slurred speech. CN 2 through 12 grossly intact Psych: calm, cooperative, normal affect Course Course Course Narrative: Patient complaining of nausea and dizziness Patient's white blood cell count is chronically elevated, creating 4.51 is at baseline, BNP 294 which is at baseline. Patient has a troponin of 168. Patient usually has a troponin of approximately 30 and less. Patient remains asymptomatic, denies chest pain or shortness of breath . patient states that this time she feels well. Patient never had chest pain Urine was finally obtained at 21:30, patient does have a UTI, patient given ceftriaxone. Patient's blood pressure within normal limits, normal heart rate I discussed the EKGs and troponin levels with Dr. Bal. At this time, no indication for heparin. Patient being admitted. I discussed the patient with Dr. Solo Medical Decision Making Lab Data Result diagrams: 05/05/22 17:00 05/05/22 17:00 Labs: Lab Results 05/05/22 05/05/22 05/05/22 Range/Units 15:42 17:00 17:00 WBC 14.5 H (4.8-10.8) X10*3/uL RBC 4.90 D (4.20-5.50) X10*6/uL Hgb 12.1 D (12.0-16.0) g/dl Hct 37.4 D (37.0-47.0) % MCV 76.3 L (80.0-98.0) fL MCH 24.7 L (27.0-33.0) pg MCHC 32.4 (31.0-35.0) g/dl RDW 14.2 (11.0-16.0) % Plt Count 143 L D (160-400) X10*3/uL MPV 10.7 (9.4-12.3) fL Immature Gran % (Auto) 0.6 H (0.0-0.4) % Neut % (Auto) 85.4 H (45-73) % Lymph % (Auto) 8.2 L (20-40) % [place] % (Auto) 5.7 (2-11) % Eos % (Auto) 0.0 (0-4) % Baso % (Auto) 0.1 (0-2) % Lymph # (Auto) 1.2 (1.2-4.9) X10*3/uL [place] # (Auto) 0.8 (0.1-1.2) X10*3/uL Eos # (Auto) 0.0 (0.0-0.4) X10*3/uL Baso # (Auto) 0.0 (0.0-0.2) X10*3/uL Abs Immat Gran (auto) 0.09 H (0.00-0.03) X10*3/uL Absolute Neuts (auto) 12.4 H (2.0-8.3) x10*3/uL Absolute Nucleated RBC 0.000 (0.0-0.012) X10*3/uL Nucleated RBC % (auto) 0.0 (0.0-0.2) /100WBC Sodium 138 (135-145) mmol/L Potassium 4.4 (3.3-5.1) mmol/L Chloride 97 (96-108) mmol/L Carbon Dioxide 26 (22-29) mmol/L Anion Gap 19 (12-20) BUN 106 H D (9-16) mg/dL Creatinine 4.51 H* (0.5-1.4) mg/dL Estim Creat Clear Calc 10.3 Estimated GFR 10 POC Glucose 269 H (60-115) mg/dL Random Glucose 229 H (60-115) mg/dL Calcium 8.6 (8.4-10.2) mg/dL Total Bilirubin 0.5 (0.0-1.0) mg/dL Direct Bilirubin 0.2 (0.0-0.5) mg/dL AST 81 H (5-31) U/L ALT 223 H (0-31) U/L Alkaline Phosphatase 333 H D (39-117) U/L Total Creatine Kinase 265 H (26-140) U/L Troponin I High Sens (<3.5-17.0) ng/L B-Natriuretic Peptide (<100) pg/mL Total Protein 6.4 L (6.5-8.0) g/dL Albumin 3.7 (3.5-5.0) g/dL Urine Color Urine Appearance Urine pH (5.0-8.0) Ur Specific [place] (1.005-1.025) Urine Protein (NEG-TRACE) MG/DL Urine Glucose (UA) (NEG) MG/DL Urine Ketones (NEG) MG/DL Urine Blood (NEG) Urine Nitrite (NEG) Ur Leukocyte Esterase (NEG) Urine RBC (0) /HPF Urine WBC (0-4) /HPF Ur Squamous Epith Cells /LPF Urine Bacteria /LPF Urine Mucus /LPF COVID-19 (LUCIUS) (Negative) COVID-19 Clin Com 05/05/22 05/05/22 05/05/22 Range/Units 17:00 17:00 18:19 WBC (4.8-10.8) X10*3/uL RBC (4.20-5.50) X10*6/uL Hgb (12.0-16.0) g/dl Hct (37.0-47.0) % MCV (80.0-98.0) fL MCH (27.0-33.0) pg MCHC (31.0-35.0) g/dl RDW (11.0-16.0) % Plt Count (160-400) X10*3/uL MPV (9.4-12.3) fL Immature Gran % (Auto) (0.0-0.4) % Neut % (Auto) (45-73) % Lymph % (Auto) (20-40) % [place] % (Auto) (2-11) % Eos % (Auto) (0-4) % Baso % (Auto) (0-2) % Lymph # (Auto) (1.2-4.9) X10*3/uL [place] # (Auto) (0.1-1.2) X10*3/uL Eos # (Auto) (0.0-0.4) X10*3/uL Baso # (Auto) (0.0-0.2) X10*3/uL Abs Immat Gran (auto) (0.00-0.03) X10*3/uL Absolute Neuts (auto) (2.0-8.3) x10*3/uL Absolute Nucleated RBC (0.0-0.012) X10*3/uL Nucleated RBC % (auto) (0.0-0.2) /100WBC Sodium (135-145) mmol/L Potassium (3.3-5.1) mmol/L Chloride (96-108) mmol/L Carbon Dioxide (22-29) mmol/L Anion Gap (12-20) BUN (9-16) mg/dL Creatinine (0.5-1.4) mg/dL Estim Creat Clear Calc Estimated GFR POC Glucose (60-115) mg/dL Random Glucose (60-115) mg/dL Calcium (8.4-10.2) mg/dL Total Bilirubin (0.0-1.0) mg/dL Direct Bilirubin (0.0-0.5) mg/dL AST (5-31) U/L ALT (0-31) U/L Alkaline Phosphatase (39-117) U/L Total Creatine Kinase (26-140) U/L Troponin I High Sens 168.5 H* D (<3.5-17.0) ng/L B-Natriuretic Peptide 294 H (<100) pg/mL Total Protein (6.5-8.0) g/dL Albumin (3.5-5.0) g/dL Urine Color YELLOW Urine Appearance TURBID Urine pH 6.5 (5.0-8.0) Ur Specific [place] 1.020 (1.005-1.025) Urine Protein 3+ H (NEG-TRACE) MG/DL Urine Glucose (UA) NEG (NEG) MG/DL Urine Ketones NEG (NEG) MG/DL Urine Blood 3+ H (NEG) Urine Nitrite NEG (NEG) Ur Leukocyte Esterase 2+ H (NEG) Urine RBC 10-14 H (0) /HPF Urine WBC 76-150 H (0-4) /HPF Ur Squamous Epith Cells 1+ /LPF Urine Bacteria 3+ /LPF Urine Mucus TRACE /LPF COVID-19 (LUCIUS) Negative (Negative) COVID-19 Clin Com See Note 05/05/22 Range/Units 20:39 WBC (4.8-10.8) X10*3/uL RBC (4.20-5.50) X10*6/uL Hgb (12.0-16.0) g/dl Hct (37.0-47.0) % MCV (80.0-98.0) fL MCH (27.0-33.0) pg MCHC (31.0-35.0) g/dl RDW (11.0-16.0) % Plt Count (160-400) X10*3/uL MPV (9.4-12.3) fL Immature Gran % (Auto) (0.0-0.4) % Neut % (Auto) (45-73) % Lymph % (Auto) (20-40) % [place] % (Auto) (2-11) % Eos % (Auto) (0-4) % Baso % (Auto) (0-2) % Lymph # (Auto) (1.2-4.9) X10*3/uL [place] # (Auto) (0.1-1.2) X10*3/uL Eos # (Auto) (0.0-0.4) X10*3/uL Baso # (Auto) (0.0-0.2) X10*3/uL Abs Immat Gran (auto) (0.00-0.03) X10*3/uL Absolute Neuts (auto) (2.0-8.3) x10*3/uL Absolute Nucleated RBC (0.0-0.012) X10*3/uL Nucleated RBC % (auto) (0.0-0.2) /100WBC Sodium (135-145) mmol/L Potassium (3.3-5.1) mmol/L Chloride (96-108) mmol/L Carbon Dioxide (22-29) mmol/L Anion Gap (12-20) BUN (9-16) mg/dL Creatinine (0.5-1.4) mg/dL Estim Creat Clear Calc Estimated GFR POC Glucose (60-115) mg/dL Random Glucose (60-115) mg/dL Calcium (8.4-10.2) mg/dL Total Bilirubin (0.0-1.0) mg/dL Direct Bilirubin (0.0-0.5) mg/dL AST (5-31) U/L ALT (0-31) U/L Alkaline Phosphatase (39-117) U/L Total Creatine Kinase (26-140) U/L Troponin I High Sens 177.4 H* (<3.5-17.0) ng/L B-Natriuretic Peptide (<100) pg/mL Total Protein (6.5-8.0) g/dL Albumin (3.5-5.0) g/dL Urine Color Urine Appearance Urine pH (5.0-8.0) Ur Specific [place] (1.005-1.025) Urine Protein (NEG-TRACE) MG/DL Urine Glucose (UA) (NEG) MG/DL Urine Ketones (NEG) MG/DL Urine Blood (NEG) Urine Nitrite (NEG) Ur Leukocyte Esterase (NEG) Urine RBC (0) /HPF Urine WBC (0-4) /HPF Ur Squamous Epith Cells /LPF Urine Bacteria /LPF Urine Mucus /LPF COVID-19 (LUCIUS) (Negative) COVID-19 Clin Com Critical Care Time Critical Care Time Critical Care Time: Yes Total Critical Care Time: 45 Attestation: I have personally provided critical care time. Time includes review of lab data, radiology results, discussion with consultants, and monitoring for potential decompensation. Intervention performed as documented. Discharge Plan Discharge Clinical Impression: Urinary tract infection, Elevated troponin Patient Disposition: Admitted As Inpatient Prescriptions: No Action furosemide [Lasix] 40 mg tablet 40 mg PO BID 90 Days Qty: 180 0RF Rx Instructions: Please call and schedule cardiology appt. carvedilol 6.25 mg tablet 6.25 mg PO BID Qty: 60 5RF Rx Instructions: must administer with a meal/food - Take one tablet twice daily atorvastatin 80 mg tablet 80 mg PO BEDTIME trazodone 50 mg tablet 50 mg PO BEDTIME clopidogrel 75 mg tablet 75 mg PO DAILY aspirin 81 mg tablet,delayed release (DR/EC) 81 mg PO BEDTIME magnesium oxide 400 mg (241.3 mg magnesium) tablet 400 mg PO BID sertraline 50 mg tablet 50 mg PO DAILY calcium carbonate-vitamin D3 600 mg(1,500mg) -400 unit tablet 1 tab PO BID amoxicillin 250 mg capsule 250 mg PO Q12H 5 Days Qty: 10 0RF insulin glargine [Lantus Solostar U-100 Insulin] 100 unit/mL (3 mL) insulin pen 10 unit subcut DAILY dexamethasone [Decadron] 6 mg tablet 6 mg PO DAILY Qty: 4 0RF amlodipine 10 mg Tablet 10 mg PO DAILY 30 Days Qty: 30 0RF Protocol: Hold for SBP< HOLD for SBP < : 90 famotidine 40 mg tablet 40 mg PO BID 30 Days Qty: 60 0RF sodium bicarbonate 650 mg Tablet 650 mg PO BID 30 Days Qty: 60 0RF sodium polystyrene sulfonate Powder 15 g PO DAILY 30 Days Qty: 454 0RF
[2022-05-05] MEDS: ondansetron HCL 4 MG/2 ML VIAL IVPUSH (16:45)
[2022-05-05] MEDS: 0.9 % Sodium Chloride 1,000 ML 999 ML IVCONT (16:45)
[2022-05-05] MEDS: Meclizine HCl 25 MG TABLET 50 MG PO (16:46)
[2022-05-05 17:01] VITALS: BP 130/44; PULSE 73; RESP 16; TEMP 36.9; O2SAT 98
[2022-05-05 17:03] LABS: MANUAL DIFF FLAG NO
[2022-05-05 17:11] LABS: Basophils Percent Auto 0.1 % (0-2); Hematocrit 37.4 % (37.0-47.0); Hemoglobin 12.1 g/dl (12.0-16.0); Imm Gran Abs Auto 0.09 X10*3/uL (0.00-0.03); Imm Gran Pct Auto 0.6 % (0.0-0.4); Lymphocytes Absolute Auto 1.2 X10*3/uL (1.2-4.9); Lymphocytes Percent Auto 8.2 % (20-40); Mean Corpuscular HGB Conc 32.4 g/dl (31.0-35.0); Mean Corpuscular Hemoglobin 24.7 pg (27.0-33.0); Mean Corpuscular Volume 76.3 fL (80.0-98.0); Mean Platelet Volume 10.7 fL (9.4-12.3); Monocytes Absolute Auto 0.8 X10*3/uL (0.1-1.2); Monocytes Percent Auto 5.7 % (2-11); Neutrophils Absolute Auto 12.4 x10*3/uL (2.0-8.3); Neutrophils Percent Auto 85.4 % (45-73); Platelet Count 143 X10*3/uL (160-400); Red Cell Distribution Width 14.2 % (11.0-16.0); White Blood Count 14.5 X10*3/uL (4.8-10.8)
[2022-05-05 17:26] LABS: COVID-19 Test Negative (Negative)
[2022-05-05 17:36] LABS: Alanine Aminotransferase 223 U/L (0-31); Albumin Level 3.7 g/dL (3.5-5.0); Alkaline Phosphatase 333 U/L (39-117); Anion Gap 19 (12-20); Aspartate Amino Transferase 81 U/L (5-31); Bilirubin Direct 0.2 mg/dL (0.0-0.5); Bilirubin Total 0.5 mg/dL (0.0-1.0); Blood Urea Nitrogen 106 mg/dL (9-16); Calcium 8.6 mg/dL (8.4-10.2); Carbon Dioxide 26 mmol/L (22-29); Chloride 97 mmol/L (96-108); Creatinine Clr Calc Pharmacy 10.3; Estimated Glomerular Filt Rate 10; Glucose Random 229 mg/dL (60-115); Potassium 4.4 mmol/L (3.3-5.1); Sodium 138 mmol/L (135-145); Total Protein 6.4 g/dL (6.5-8.0); Troponin-I High Sensitivity 168.5 ng/L (<3.5-17.0)
[2022-05-05 18:21] LABS: B Type Natriuretic Peptide 294 pg/mL (<100)
[2022-05-05 18:26] LABS: Appearance Urine TURBID; Color Urine YELLOW; Glucose Urine UA NEG (NEG); Leukocyte Esterase Urine 2+ (NEG); Nitrite Urine NEG (NEG); PH 6.5 (5.0-8.0); UACC Culture Trigger YES; Urine Blood 3+ (NEG); Urine Ketones NEG (NEG); Urine Protein 3+ MG/DL (NEG-TRACE)
[2022-05-05 18:36] LABS: Mucus Urine TRACE /LPF; Squamous Epithelial Cell Urine 1+ /LPF
[2022-05-05 18:37] LABS: Bacteria Urine 3+ /LPF
--- NOTE | 2022-05-05 19:08 | ECG_ITS ---
Test Reason : cp Blood Pressure : / mmHG Vent. Rate : 066 BPM Atrial Rate : 066 BPM P-R Int : 154 ms QRS Dur : 130 ms QT Int : 496 ms P-R-T Axes : 056 008 210 degrees QTc Int : 519 ms Normal sinus rhythm Left ventricular hypertrophy with QRS widening ( R in aVL , Heriberto product ) Marked T-wave abnormality, consider inferolateral ischemia Abnormal ECG When compared with ECG of 05-MAY-2022 17:20, No significant change was found Referred By: Cecilia Church Electronically Signed By:LUCRECIA PILLAI MD
[2022-05-05 19:36] VITALS: BP 127/65; PULSE 65; RESP 14
[2022-05-05 20:23] VITALS: BP 133/71; PULSE 66; RESP 22; O2SAT 98
[2022-05-05 21:09] LABS: Troponin-I High Sensitivity 177.4 ng/L (<3.5-17.0)
--- NOTE | 2022-05-05 21:45 | PM.IMHP ---
History of Present Illness Date of Service: 05/05/22 Chief Complaint: confusion 67-year-old female with a past medical history of hypertension, hyperlipidemia, diabetes, CKD, CAD cardiomyopathy, dysphagia, CVA, gastroparesis, irritable bowel syndrome presented to the hospital from the group home with a chief complaint nausea/confusion. Per staff patient reportedly more confused than her baseline and also had intermittent episodes of nausea. Subsequently steroid to the hospital for further evaluation. Denies having any fevers. Patient denies any stomach pain, chest pain, lightheadedness or dizziness. Denies any fever chills. Denies any cough or sputum production. Review of all other systems is negative except mentioned above ER course: Per ER team patient appears to be mildly confused, alert and awake, cooperative, noted to have abnormal urinalysis consistent with UTI. Given ceftriaxone. Also noted to elevated troponin to 170; discussed with Cardiology Dr. Bal- sunshine heparin drip recommended. Admitted to the hospital for further management [facility] Medical History Acute on chronic renal failure Acute worsening of stage 4 chronic kidney disease Anemia Blister of finger without infection Cholecystectomy planned Chronic heart failure with preserved ejection fraction (HFpEF) CKD (chronic kidney disease) CKD (chronic kidney disease) stage 3, GFR 30-59 ml/min CKD (chronic kidney disease) stage 4, GFR 15-29 ml/min CKD (chronic kidney disease), stage IV Congestive heart failure Diabetes Diabetes mellitus Elevated d-dimer Essential hypertension Gastroparesis GERD (gastroesophageal reflux disease) Hand pain Hernia HLD (hyperlipidemia) HTN (hypertension) Hypomagnesemia Irritable bowel syndrome with diarrhea Lightheadedness Low blood pressure Non-ST elevated myocardial infarction Nonischemic cardiomyopathy Other and unspecified hyperlipidemia Pharyngoesophageal dysphagia Type 2 diabetes mellitus with unspecified complications Family History Father Lung cancer Mother Diabetes HTN (hypertension) Heart disease Sister Diabetes Heart disease Brother Heart disease Son Diabetes Daughter Diabetes Surgical History H/O: hysterectomy History of esophagogastroduodenoscopy (EGD) Hx of colonoscopy Hx of eye surgery Social History Household Members: Other Household Members Other:: SNF Housing: Residential Do you presently have visiting nurse or other home services: No Unable to assess alcohol history related to: Unable to respond Alcohol intake: never Patient Tobacco Use Status: Never used Tobacco Second Hand Smoke Exposure: No Advance Directives: Yes Advance Directives on File: Yes Advance Directives Date on File: 02/02/22 service: No Current occupational status: disabled Meds Allergies Allergy/AdvReac Type Severity Reaction Status Date / Time latex [LATEX] Allergy Intermediate ITCHY Verified 06/29/21 13:08 Active Medications: Current Medications Ceftriaxone Sodium 1 gm/ (Sodium Chloride) 50 mls @ 100 mls/hr IV ONCE ONE Stop: 05/05/22 22:03 Pharmacy Consult (Consult Rx Perform Med Rec) 1 each MISCELLANE ONCE PRN PRN Reason: Consult order Home Medications Medication Instructions Recorded Confirmed Last Taken Type aspirin 81 mg tablet,delayed 81 mg PO BEDTIME 06/20/21 03/25/22 01/30/22 History release atorvastatin 80 mg tablet 80 mg PO BEDTIME 06/20/21 03/25/22 01/30/22 History calcium carbonate 600 mg-vitamin 1 tab PO BID 06/20/21 03/25/22 01/30/22 History D3 10 mcg (400 unit) tablet clopidogrel 75 mg tablet 75 mg PO DAILY 06/20/21 03/25/22 01/30/22 History magnesium oxide 400 mg (241.3 mg 400 mg PO BID 06/20/21 03/25/22 01/30/22 History magnesium) tablet sertraline 50 mg tablet 50 mg PO DAILY 06/20/21 03/25/22 01/30/22 History trazodone 50 mg tablet 50 mg PO BEDTIME 06/20/21 03/25/22 01/30/22 History insulin glargine 100 unit/mL (3 10 unit subcut DAILY 03/25/22 03/25/22 Unknown History mL) subcutaneous pen (Lantus Solostar U-100 Insulin) acetaminophen 500 mg tablet 2 tab PO QID PRN fever 05/05/22 05/05/22 Unknown History insulin lispro 100 unit/mL 1 sliding scale dose subcut 05/05/22 05/05/22 Unknown History subcutaneous solution (Humalog USEASDIRECTD U-100 Insulin) ipratropium 0.5 mg-albuterol 3 mg 3 ml inhalation Q4H PRN Wheezing 05/05/22 05/05/22 Unknown History (2.5 mg base)/3 mL nebulization soln Physical Exam Vital Signs and Narrative: Vital Signs: Last Vital Signs Temp 98.4 F 05/05/22 17:01 Pulse 66 05/05/22 20:23 Resp 22 H 05/05/22 20:23 BP 133/71 05/05/22 20:23 Pulse Ox 98 05/05/22 20:23 O2 Del Method 05/05/22 20:23 Oxygen Flow Rate 2 05/05/22 15:28 BMI result Body Mass Index 30.5 Gen: Appears be in no acute distress HEENT: NCAT, Moist mucosa. Pulmonary: Vesicular breath sounds, fair air entry CVS: Normal S1-S2 Abdomen: BS+, Soft, Nontender Extremities: Warm well perfused Neuro: Alert and awake. Results Labs CBC and Chem 7: 05/05/22 17:00 05/05/22 17:00 Labs: Laboratory Results - last 24 hr 05/05/22 05/05/22 05/05/22 15:42 17:00 17:00 MCV 76.3 L MCH 24.7 L MCHC 32.4 RDW 14.2 Plt Count 143 L D MPV 10.7 Immature Gran % (Auto) 0.6 H Neut % (Auto) 85.4 H Lymph % (Auto) 8.2 L [place] % (Auto) 5.7 Eos % (Auto) 0.0 Baso % (Auto) 0.1 Lymph # (Auto) 1.2 [place] # (Auto) 0.8 Eos # (Auto) 0.0 Baso # (Auto) 0.0 Abs Immat Gran (auto) 0.09 H Absolute Neuts (auto) 12.4 H Absolute Nucleated RBC 0.000 Nucleated RBC % (auto) 0.0 Anion Gap 19 Estim Creat Clear Calc 10.3 Estimated GFR 10 POC Glucose 269 H Random Glucose 229 H Calcium 8.6 Total Bilirubin 0.5 Direct Bilirubin 0.2 AST 81 H ALT 223 H Alkaline Phosphatase 333 H D Total Creatine Kinase 265 H B-Natriuretic Peptide Total Protein 6.4 L Albumin 3.7 Urine Color Urine Appearance Urine pH Ur Specific [place] Urine Protein Urine Glucose (UA) Urine Ketones Urine Blood Urine Nitrite Ur Leukocyte Esterase Urine RBC Urine WBC Ur Squamous Epith Cells Urine Bacteria Urine Mucus COVID-19 (LUCIUS) COVID-19 Clin Com 05/05/22 05/05/22 05/05/22 17:00 17:00 18:19 MCV MCH MCHC RDW Plt Count MPV Immature Gran % (Auto) Neut % (Auto) Lymph % (Auto) [place] % (Auto) Eos % (Auto) Baso % (Auto) Lymph # (Auto) [place] # (Auto) Eos # (Auto) Baso # (Auto) Abs Immat Gran (auto) Absolute Neuts (auto) Absolute Nucleated RBC Nucleated RBC % (auto) Anion Gap Estim Creat Clear Calc Estimated GFR POC Glucose Random Glucose Calcium Total Bilirubin Direct Bilirubin AST ALT Alkaline Phosphatase Total Creatine Kinase B-Natriuretic Peptide 294 H Total Protein Albumin Urine Color YELLOW Urine Appearance TURBID Urine pH 6.5 Ur Specific [place] 1.020 Urine Protein 3+ H Urine Glucose (UA) NEG Urine Ketones NEG Urine Blood 3+ H Urine Nitrite NEG Ur Leukocyte Esterase 2+ H Urine RBC 10-14 H Urine WBC 76-150 H Ur Squamous Epith Cells 1+ Urine Bacteria 3+ Urine Mucus TRACE COVID-19 (LUCIUS) Negative COVID-19 Clin Com See Note Assessment and Plan (1) UTI (urinary tract infection): Status: Acute (2) Type 2 diabetes mellitus with unspecified complications: Status: Acute Plan 67-year-old female with a past medical history of hypertension, hyperlipidemia, diabetes, Left BKA, mood disorder, history of COVID-19 infection,CKD, CAD cardiomyopathy, dysphagia, CVA, gastroparesis, irritable bowel syndrome presented to the hospital from the group home with a chief complaint nausea/confusion. admitted for following Confusion: Likely toxic metabolic encephalopathy. Improving. Likely in the setting of UTI. Will also obtain chest x-ray Supportive care. UTI: Continue ceftriaxone. Follow up cultures. Elevated troponins: Patient denies any chest pain. Troponins plateaued. Cardiology was notified- no heparin drip recommended. Monitor on telemetry. Cycle cardiac enzymes. EKG shows T-wave inversions but also noted on the prior EKG. Transaminitis: Trend liver enzymes. Will also obtain acute hepatitis panel, right upper quadrant ultrasound. Nausea/ vomiting: Likely in the setting of gastroparesis. Supportive care. chronic medical conditions: History of CKD: Baseline creatinine around 4.6. Currently at baseline. History of loculated pleural effusion: Currently breathing comfortably. Chest x-ray pending. History of CHF: Continue home Lasix, carvedilol History of CVA: Continue home aspirin, Plavix, statin History of depression: Continue home sertraline History of diabetes: Insulin sliding scale plus Lantus 10 units. DVT prophylaxis: [facility] Code status: Full code Quality Stroke Does the patient have a stroke diagnosis?: No VTE Prior VTE?: No VTE Risk Level:: Medical - moderate - high VTE Device Contraindication: Treatment Not Indicated VTE Drug Contraindication: N/A - Med Ordered
[2022-05-05] MEDS: cefTRIAXone sodium 1 GM in 0.9 % Sodium Chloride 50 ML IV (21:47)
--- NOTE | 2022-05-05 21:52 | PHA.MEDREC ---
Pharmacy Consult ? Medication Reconciliation Pharmacy has completed the medication reconciliation.
[2022-05-05] MEDS: Heparin Sodium,Porcine 5,000 UNIT/ML VIAL 5000 UNIT SUBCUT (22:44)
[2022-05-06] VITALS (10 sets, daily range): BP systolic 115–153; BP diastolic 52–85; PULSE 59–76; RESP 16–20; TEMP 36.1–37; O2SAT 95–100
[2022-05-06 06:50] LABS: Hematocrit 35.7 % (37.0-47.0); Hemoglobin 11.4 g/dl (12.0-16.0); Mean Corpuscular HGB Conc 31.9 g/dl (31.0-35.0); Mean Corpuscular Hemoglobin 24.6 pg (27.0-33.0); Mean Corpuscular Volume 77.1 fL (80.0-98.0); Mean Platelet Volume 11.6 fL (9.4-12.3); Platelet Count 141 X10*3/uL (160-400); Red Blood Count 4.63 X10*6/uL (4.20-5.50); Red Cell Distribution Width 14.3 % (11.0-16.0); White Blood Count 12.5 X10*3/uL (4.8-10.8)
--- NOTE | 2022-05-06 07:00 | CA_ITS ---
Transthoracic Echocardiogram Patient (Last, First, Middle): Debbie Guerra, Gender: Female Date of : 1955 Age: 67 Procedure Date: 05/06/2022 Procedure Type: Transthoracic Echocardiogram Location: [facility] Height: 152.4 cm Weight: 70.76 kg BSA: 1.68 m2 Heart Rate: 66 bpm BP: 128 / 60 mmHg Fats And Oils Loader: SB Referring MD: Akira oSlo MD Graduating Machine Operator: Luis Bal MD Symptoms: elevated troponins Study Quality: Adequate w contrast-pt restless during study ECG Rhythm: Sinus Conclusions: - 1. Mildly to moderately reduced LV systolic function with mild LVH with impaired relaxation filling pattern 2. Normal RV size with reduced systolic function 3. Mild aortic stenosis 4. Normal right atrial pressures next 5. No gross pericardial effusion Findings Procedure Information Contrast agent, definity, is being given per protocol without apparent complications. Left Ventricle The left ventricle was not well visualized. Normal left ventricular cavity size. There is mildly increased left ventricular wall thickness. The left ventricular systolic function is mild to moderately decreased. The visually estimated ejection fraction is between 40-45%. Spectral Doppler is indicative of an impaired relaxation filling pattern. Right Ventricle Normal right ventricular cavity size. There is moderate to severely decreased right ventricular systolic function. Atria The left atrium is normal in size. Interatrial shunt cannot be excluded. The right atrium is normal in size. Aortic Valve The aortic valve was not well visualized. There is mild calcification of the aortic valve. There is mild aortic valve stenosis. Mitral Valve There is moderate anterior and posterior mitral leaflet thickening. There is mild mitral annular calcification. There is trace mitral valve regurgitation. There is no mitral valve stenosis. Pulmonic Valve The pulmonic valve was not well visualized. Tricuspid Valve Tricuspid regurgitation envelope is inadequate for calculation of right ventricular systolic pressure. Normal right atrial pressure. Great Vessels All visible segments of the aorta are normal in size. The pulmonary artery was not well visualized. Venous The inferior vena cava is normal in size and collapses greater than 50% with inspiration. Pericardium/Pleural There is no evidence of pericardial effusion. Prior Study Comparison Changes noted compared to prior study dated: 06/05/2021. LV systolic function is reduced. RV systolic pressure was not measured on this study Measurements 2D Linear Measurements IVSd: 1.66 0.6-0.9/0.6-1.0 cm LVIDd: 4.35 3.9-5.3/4.2-5.9 cm LVIDd Index: 2.59 2.4-3.2/2.2-3.1 cm/m2 LVIDs: 3.45 2.0-3.6 cm LVPWd: 1.19 0.7-1.1 cm LA Diam: 3.70 2.7-3.8/3.0-4.0 cm LAIDs Index: 2.20 1.5-2.3 cm/m2 LV Mass: 302.57 67-162/88-224 g LV Mass Index: 180.10 43-95/49-115 g/m2 LVOT Diam: 2.20 3.0+(-)1.3 cm 2D Systolic Function EF 4C: 30.70 >55% EF 2C: 43.10 >55% Mitral Valve MV Pk E: 0.59 MV PK A: 1.01 MV Decel Time: 273.00 E/A: 0.60 E'Lateral: 3.25 E/E' Lat: 18.10 PHT: 80.00 MVA PHT: 2.75 Decel Alcorn: 2.15 Aortic Valve AoV Pk Rudy: 1.53 AoV Mn Rudy: 1.00 AoV VTI: 0.29 AoV Pk Grad: 9.00 Aov Mn Grad: 5.00 MAGNOLIA Cont.VTI: 1.90 LVOT LVOT Pk Rudy: 0.76 LVOT Mn Rudy: 0.51 LVOT VTI: 0.15 LVOT Pk Grad: 2.00 LVOT Mn Grad: 1.00 LVOT Diam: 2.20 LVOT Area: 3.80 Diastolic Function MV Pk E: 0.59 MV Pk A: 1.01 E/A: 0.60 E' Laterial: 3.25 E/E' Lat: 18.10 Right Ventricle TAPSE (mm): 5.70 TVS' Rudy: 4.40 Tricuspid Valve RA Press: 3.00 Great Vessels Aorta Sinus of Valsalva: 2.70 2.0-3.5 cm Ao Asc: 3.70 2.1-3.4 cm Pulmonary Veins Pulm Vein S/D 2.00 Pulmonary Valve PV Pk Rudy: 0.84 Peak PV Grad: 3.00 Updated in Other Vendor System with Status of Final Luis Bal MD electronically signed on 05/06/2022 3:39:44 PM with status of Final
[2022-05-06 07:10] LABS: Alanine Aminotransferase 166 U/L (0-31); Albumin Level 3.4 g/dL (3.5-5.0); Alkaline Phosphatase 269 U/L (39-117); Anion Gap 18 (12-20); Aspartate Amino Transferase 49 U/L (5-31); Bilirubin Direct 0.2 mg/dL (0.0-0.5); Bilirubin Total 0.4 mg/dL (0.0-1.0); Blood Urea Nitrogen 97 mg/dL (9-16); Calcium 8.4 mg/dL (8.4-10.2); Carbon Dioxide 24 mmol/L (22-29); Chloride 103 mmol/L (96-108); Creatinine Clr Calc Pharmacy 11.6; Estimated Glomerular Filt Rate 11; Glucose Random 108 mg/dL (60-115); Potassium 4.5 mmol/L (3.3-5.1); Sodium 140 mmol/L (135-145); Total Protein 5.9 g/dL (6.5-8.0)
[2022-05-06 07:32] LABS: Glucose, Whole Blood 92 mg/dL (60-115)
[2022-05-06 08:15] LABS: HBS Num1 0.99 mIU/mL (0-7.99); HBc Num1 0.08 S/CO (0.00-0.79); Hepatitis A Antibody IgM 0.39 Index (0-0.79); Hepatitis B Core Antibody Nonreactive (Nonreactive); Hepatitis B Surface Antigen Negative (Negative); ~HepC Num1 0.25 S/CO (0.00-0.79); ~Hepatitis A Antibody IgM Nonreactive (Nonreactive); ~Hepatitis B Surface Antibody NONREACTIVE (Nonreactive); ~Hepatitis C Antibody Nonreactive (Nonreactive)
--- NOTE | 2022-05-06 11:06 | MHC.CM.PN ---
Per Patient's request, CM addressed admission process with Daughter/HCP/Adelita @ bedside and addressed IMM with Adelita (providing Adelita with the original and placing a copy on the chart). Per Adelita, returning to [facility] is the goal and CM has initiated and will follow for dc planning. Patient has received Covid/J&J vax X1 and her PCP is Dr. Avila.
[2022-05-06] MEDS: Heparin Sodium,Porcine 5,000 UNIT/ML VIAL 5000 UNIT SUBCUT ×2 (11:30→22:41)
[2022-05-06] MEDS: Furosemide 40 MG TABLET PO ×2 (11:30→22:42)
[2022-05-06] MEDS: Sodium Bicarbonate 650 MG TABLET PO ×2 (11:30→22:42)
[2022-05-06] MEDS: 0.9 % Sodium Chloride Flush 3 ML SYRINGE IVFLUSH ×3 (11:30→22:42)
[2022-05-06] MEDS: carvediloL 6.25 MG TABLET PO ×2 (11:31→22:42)
[2022-05-06] MEDS: amLODIPine Besylate 10 MG TABLET PO (11:31)
[2022-05-06] MEDS: Sertraline HCL 50 MG TABLET PO (11:31)
[2022-05-06] MEDS: Famotidine 20 MG TABLET PO (11:31)
[2022-05-06] MEDS: Magnesium Oxide 400 MG TABLET PO ×2 (11:31→22:42)
[2022-05-06] MEDS: Clopidogrel Bisulfate 75 MG TABLET PO (11:31)
[2022-05-06 11:54] LABS: Glucose, Whole Blood 102 mg/dL (60-115)
--- NOTE | 2022-05-06 13:00 | P.CONCA_ITS ---
History of Present Illness History of Present Illness Date of Service: 05/06/22 Consult reason: troponin elevation Chief complaint: UTI Narrative: I was requested to see Debbie in cardiology consultation today for elevated troponins. Her troponin is elevated compared to a baseline but flat. Patient was brought to the hospital from residential facility for altered mental status and nausea. Patient complaining of abdominal discomfort. Patient was noted to have UTI. There was no reported chest pains. EKG suggestive of deep T-wave inversion in the lateral leads, worse than in the past. Patient with prior history of cardiomyopathy but most recent echocardiogram at shown normal LV ejection fraction. Has prior history of cerebrovascular disease and stroke and high likelihood of underlying coronary artery disease but do not have any invasive cardiac catheterization report in her. She has advancing kidney disease with creatinine now in the 4 switch is significantly worsened recently. She has history of hypertension heart failure with now preserved ejection fraction, gastroparesis. She is mostly bedbound because of her amputations. Currently residing in a nursing facility due to multiple recent hospitalization deconditioning. Review of Systems Review of Systems: Yes Unobtainable due to mental status Neurologic: Reports confusion Psychiatric: Psychiatric: Reports confusion PMFSH Past Medical History Medical History Acute on chronic renal failure Acute worsening of stage 4 chronic kidney disease Anemia Blister of finger without infection Cholecystectomy planned Chronic heart failure with preserved ejection fraction (HFpEF) CKD (chronic kidney disease) CKD (chronic kidney disease) stage 3, GFR 30-59 ml/min CKD (chronic kidney disease) stage 4, GFR 15-29 ml/min CKD (chronic kidney disease), stage IV Congestive heart failure Diabetes Diabetes mellitus Elevated d-dimer Essential hypertension Gastroparesis GERD (gastroesophageal reflux disease) Hand pain Hernia HLD (hyperlipidemia) HTN (hypertension) Hypomagnesemia Irritable bowel syndrome with diarrhea Lightheadedness Low blood pressure Non-ST elevated myocardial infarction Nonischemic cardiomyopathy Other and unspecified hyperlipidemia Pharyngoesophageal dysphagia Type 2 diabetes mellitus with unspecified complications Family History Family History Father Lung cancer Mother Diabetes HTN (hypertension) Heart disease Sister Diabetes Heart disease Brother Heart disease Son Diabetes Daughter Diabetes Surgical History Surgical History H/O: hysterectomy History of esophagogastroduodenoscopy (EGD) Hx of colonoscopy Hx of eye surgery Social History Social History Household Members: Unknown / Unable to assess Household Members Other:: SNF Housing: Assisted Living Facility Do you presently have visiting nurse or other home services: No Unable to assess alcohol history related to: Unknown Alcohol intake: never Patient Tobacco Use Status: Never used Tobacco Second Hand Smoke Exposure: No Advance Directives: Yes Advance Directives on File: Yes Advance Directives Date on File: 02/02/22 Do you have thoughts of harming others: None Do you have a plan to hurt others: No Plan Recently lost weight without trying: Unsure Eating poorly because of decreased appetite: No Nutrition Risks: No Nutritional Risk Patient : No : No Poor oral hygiene: No service: No Current occupational status: disabled Meds Allergies Allergy/AdvReac Type Severity Reaction Status Date / Time latex [LATEX] Allergy Intermediate ITCHY Verified 06/29/21 13:08 Active Medications: Current Medications Acetaminophen (Acetaminophen 325 Mg Tablet) 650 mg PO Q6H PRN PRN Reason: Pain, Mild (Pain Scale 1-3) Albuterol/Ipratropium (Albuterol/Iprat 2.5/0.5mg 3 Ml Ampul.Neb) 3 ml INHALE Q4H PRN PRN Reason: Wheezing Amlodipine Besylate (Amlodipine Besylate 10 Mg Tablet) 10 mg PO DAILY PENDING SALE TO [facility]; Protocol Last Admin: 05/06/22 11:31 Dose: 10 mg Aspirin (Aspirin Enteric Coated 81 Mg Tablet.) 81 mg PO BEDTIME MATTY Atorvastatin Calcium (Atorvastatin Calcium 80 Mg Tablet) 80 mg PO BEDTIME MATTY Carvedilol (Carvedilol 6.25 Mg Tablet) 6.25 mg PO BID MATTY; Protocol Last Admin: 05/06/22 11:31 Dose: 6.25 mg Clopidogrel Bisulfate (Clopidogrel Bisulfate 75 Mg Tablet) 75 mg PO DAILY PENDING SALE TO [facility] Last Admin: 05/06/22 11:31 Dose: 75 mg Dextrose (Dextrose 50 % 25 Gm/50 Ml Syringe) 25 gm IVPUSH Q15M PRN; Protocol PRN Reason: per Hypoglycemia Standing Ord. Famotidine (Famotidine 20 Mg Tablet) 20 mg PO Q48H MATTY Last Admin: 05/06/22 11:31 Dose: 20 mg Furosemide (Furosemide 40 Mg Tablet) 40 mg PO BID PENDING SALE TO [facility]; Protocol Last Admin: 05/06/22 11:30 Dose: 40 mg Glucose (Glucose Gel 15 Gm Gel..Gram.) 15 gm PO Q15M PRN; Protocol PRN Reason: per Hypoglycemia Standing Ord. Heparin Sodium (Porcine) (Heparin Sodium,Porcine 5,000 Unit/Ml Vial) 5,000 unit SUBCUT Q12H PENDING SALE TO [facility] Last Admin: 05/06/22 11:30 Dose: 5,000 unit Ceftriaxone Sodium 1 gm/ (Sodium Chloride) 50 mls @ 100 mls/hr IV Q24H PENDING SALE TO [facility] Insulin Glargine (Insulin Glargine,Hum.Rec.Anlog 100 Unit/Ml 10 Ml Vial) 10 unit SUBCUT BEDTIME PENDING SALE TO [facility] Insulin Human Lispro (Insulin Lispro 100 Unit/Ml 3 Ml Vial) 0 unit SUBCUT QIDACHS PENDING SALE TO [facility]; Protocol Last Admin: 05/06/22 11:32 Dose: Not Given Magnesium Oxide (Magnesium Oxide 400 Mg Tablet) 400 mg PO BID PENDING SALE TO [facility] Last Admin: 05/06/22 11:31 Dose: 400 mg Melatonin (Melatonin 3 Mg Tablet) 6 mg PO BEDTIME PRN PRN Reason: Insomnia Pharmacy Consult (Consult Rx Perform Med Rec) 1 each MISCELLANE ONCE PRN PRN Reason: Consult order Senna (Sennosides 8.6 Mg Tablet) 17.2 mg PO BEDTIME PRN PRN Reason: Constipation Sertraline HCl (Sertraline Hcl 50 Mg Tablet) 50 mg PO DAILY PENDING SALE TO [facility] Last Admin: 05/06/22 11:31 Dose: 50 mg Sodium Bicarbonate (Sodium Bicarbonate 650 Mg Tablet) 650 mg PO BID PENDING SALE TO [facility] Last Admin: 05/06/22 11:30 Dose: 650 mg Sodium Chloride (0.9 % Sodium Chloride Flush 3 Ml Syringe) [facility] Last Admin: 05/06/22 11:30 Dose: 3 ml Trazodone HCl (Trazodone Hcl 50 Mg Tablet) 50 mg PO BEDTIME PENDING SALE TO [facility] Home Medications Medication Instructions Recorded Confirmed Last Taken Type aspirin 81 mg tablet,delayed 81 mg PO BEDTIME 06/20/21 05/05/22 01/30/22 History release atorvastatin 80 mg tablet 80 mg PO BEDTIME 06/20/21 05/05/22 01/30/22 History calcium carbonate 600 mg-vitamin 1 tab PO BID 06/20/21 05/05/22 01/30/22 History D3 10 mcg (400 unit) tablet clopidogrel 75 mg tablet 75 mg PO DAILY 06/20/21 05/05/22 01/30/22 History magnesium oxide 400 mg (241.3 mg 400 mg PO BID 06/20/21 05/05/22 01/30/22 History magnesium) tablet sertraline 50 mg tablet 50 mg PO DAILY 06/20/21 05/05/22 01/30/22 History trazodone 50 mg tablet 50 mg PO BEDTIME 06/20/21 05/05/22 01/30/22 History insulin glargine 100 unit/mL (3 18 unit subcut DAILY 03/25/22 05/05/22 Unknown History mL) subcutaneous pen (Lantus Solostar U-100 Insulin) acetaminophen 500 mg tablet 2 tab PO QID PRN fever 05/05/22 05/05/22 Unknown History insulin lispro 100 unit/mL 1 sliding scale dose subcut 05/05/22 05/05/22 Unknown History subcutaneous solution (Humalog USEASDIRECTD U-100 Insulin) ipratropium 0.5 mg-albuterol 3 mg 3 ml inhalation Q4H PRN Wheezing 05/05/22 05/05/22 Unknown History (2.5 mg base)/3 mL nebulization soln Physical Exam Vital Signs: Vital Signs: Last Vital Signs Temp 97.8 F 05/06/22 11:32 Pulse 67 05/06/22 11:32 Resp 20 05/06/22 11:32 BP 140/85 H 05/06/22 11:32 Pulse Ox 97 05/06/22 11:32 O2 Del Method 05/06/22 11:32 Oxygen Flow Rate 2 05/05/22 15:28 BMI result Body Mass Index 30.5 Const: General: cooperative, alert, confusion, ill appearing and other (Restless) Nutritional Appearance: obese Orientation/consciousness: confusion HEENT: Head: Yes normocephalic and Yes atraumatic Neck: Neck: Yes trachea midline, Yes supple and Yes no JVD Resp: Effort & Inspection: decreased respiratory effort Auscultation: no rales, no wheezes and diminished lung sounds Cardio: Jugular venous distension: no JVD Palpation: normal PMI Rate: regular rate Rhythm: regular rhythm Heart sounds: S1 normal heart sound p resent, S2 normal heart sound present, no click, no gallops and Murmur heart sound present systolic GI: Inspection: Yes obesity Auscultation: normal bowel sounds Skin: General skin exam: no rashes or lesions noted Neuro: General: confusion Objective Labs and Meds Result diagrams: 05/06/22 06:08 05/06/22 06:08 Lab results: Laboratory Results - last 24 hr 05/05/22 05/05/22 05/05/22 15:42 17:00 17:00 WBC 14.5 H RBC 4.90 D Hgb 12.1 D Hct 37.4 D MCV 76.3 L MCH 24.7 L MCHC 32.4 RDW 14.2 Plt Count 143 L D MPV 10.7 Immature Gran % (Auto) 0.6 H Neut % (Auto) 85.4 H Lymph % (Auto) 8.2 L [place] % (Auto) 5.7 Eos % (Auto) 0.0 Baso % (Auto) 0.1 Lymph # (Auto) 1.2 [place] # (Auto) 0.8 Eos # (Auto) 0.0 Baso # (Auto) 0.0 Abs Immat Gran (auto) 0.09 H Absolute Neuts (auto) 12.4 H Absolute Nucleated RBC 0.000 Nucleated RBC % (auto) 0.0 Sodium 138 Potassium 4.4 Chloride 97 Carbon Dioxide 26 Anion Gap 19 BUN 106 H D Creatinine 4.51 H* Estim Creat Clear Calc 10.3 Estimated GFR 10 POC Glucose 269 H Random Glucose 229 H Calcium 8.6 Total Bilirubin 0.5 Direct Bilirubin 0.2 AST 81 H ALT 223 H Alkaline Phosphatase 333 H D Total Creatine Kinase 265 H Troponin I High Sens B-Natriuretic Peptide Total Protein 6.4 L Albumin 3.7 Urine Color Urine Appearance Urine pH Ur Specific [place] Urine Protein Urine Glucose (UA) Urine Ketones Urine Blood Urine Nitrite Ur Leukocyte Esterase Urine RBC Urine WBC Ur Squamous Epith Cells Urine Bacteria Urine Mucus COVID-19 (LUCIUS) COVID-19 Clin Com Hepatitis A IgM Ab Hep Bs Antigen Hep Bs Antibody Hep B Core Total Ab Hepatitis C Ab (EIA) 05/05/22 05/05/22 05/05/22 17:00 17:00 18:19 WBC RBC Hgb Hct MCV MCH MCHC RDW Plt Count MPV Immature Gran % (Auto) Neut % (Auto) Lymph % (Auto) [place] % (Auto) Eos % (Auto) Baso % (Auto) Lymph # (Auto) [place] # (Auto) Eos # (Auto) Baso # (Auto) Abs Immat Gran (auto) Absolute Neuts (auto) Absolute Nucleated RBC Nucleated RBC % (auto) Sodium Potassium Chloride Carbon Dioxide Anion Gap BUN Creatinine Estim Creat Clear Calc Estimated GFR POC Glucose Random Glucose Calcium Total Bilirubin Direct Bilirubin AST ALT Alkaline Phosphatase Total Creatine Kinase Troponin I High Sens 168.5 H* D B-Natriuretic Peptide 294 H Total Protein Albumin Urine Color YELLOW Urine Appearance TURBID Urine pH 6.5 Ur Specific [place] 1.020 Urine Protein 3+ H Urine Glucose (UA) NEG Urine Ketones NEG Urine Blood 3+ H Urine Nitrite NEG Ur Leukocyte Esterase 2+ H Urine RBC 10-14 H Urine WBC 76-150 H Ur Squamous Epith Cells 1+ Urine Bacteria 3+ Urine Mucus TRACE COVID-19 (LUCIUS) Negative COVID-19 Clin Com See Note Hepatitis A IgM Ab Hep Bs Antigen Hep Bs Antibody Hep B Core Total Ab Hepatitis C Ab (EIA) 05/05/22 05/06/22 05/06/22 20:39 06:08 06:08 WBC 12.5 H RBC 4.63 Hgb 11.4 L Hct 35.7 L MCV 77.1 L MCH 24.6 L MCHC 31.9 RDW 14.3 Plt Count 141 L MPV 11.6 Immature Gran % (Auto) Neut % (Auto) Lymph % (Auto) [place] % (Auto) Eos % (Auto) Baso % (Auto) Lymph # (Auto) [place] # (Auto) Eos # (Auto) Baso # (Auto) Abs Immat Gran (auto) Absolute Neuts (auto) Absolute Nucleated RBC 0.000 Nucleated RBC % (auto) 0.0 Sodium 140 Potassium 4.5 Chloride 103 Carbon Dioxide 24 Anion Gap 18 BUN 97 H Creatinine 4.02 H* Estim Creat Clear Calc 11.6 Estimated GFR 11 POC Glucose Random Glucose 108 Calcium 8.4 Total Bilirubin 0.4 Direct Bilirubin 0.2 AST 49 H ALT 166 H Alkaline Phosphatase 269 H Total Creatine Kinase Troponin I High Sens 177.4 H* B-Natriuretic Peptide Total Protein 5.9 L Albumin 3.4 L Urine Color Urine Appearance Urine pH Ur Specific [place] Urine Protein Urine Glucose (UA) Urine Ketones Urine Blood Urine Nitrite Ur Leukocyte Esterase Urine RBC Urine WBC Ur Squamous Epith Cells Urine Bacteria Urine Mucus COVID-19 (LUCIUS) COVID-19 Clin Com Hepatitis A IgM Ab Hep Bs Antigen Hep Bs Antibody Hep B Core Total Ab Hepatitis C Ab (EIA) 05/06/22 05/06/22 05/06/22 06:08 06:08 07:10 WBC RBC Hgb Hct MCV MCH MCHC RDW Plt Count MPV Immature Gran % (Auto) Neut % (Auto) Lymph % (Auto) [place] % (Auto) Eos % (Auto) Baso % (Auto) Lymph # (Auto) [place] # (Auto) Eos # (Auto) Baso # (Auto) Abs Immat Gran (auto) Absolute Neuts (auto) Absolute Nucleated RBC Nucleated RBC % (auto) Sodium Potassium Chloride Carbon Dioxide Anion Gap BUN Creatinine Estim Creat Clear Calc Estimated GFR POC Glucose 92 Random Glucose Calcium Total Bilirubin Cancelled Direct Bilirubin Cancelled AST Cancelled ALT Cancelled Alkaline Phosphatase Cancelled Total Creatine Kinase Troponin I High Sens B-Natriuretic Peptide Total Protein Cancelled Albumin Cancelled Urine Color Urine Appearance Urine pH Ur Specific [place] Urine Protein Urine Glucose (UA) Urine Ketones Urine Blood Urine Nitrite Ur Leukocyte Esterase Urine RBC Urine WBC Ur Squamous Epith Cells Urine Bacteria Urine Mucus COVID-19 (LUCIUS) COVID-19 Clin Com Hepatitis A IgM Ab Nonreactive Hep Bs Antigen Negative Hep Bs Antibody NONREACTIVE Hep B Core Total Ab Nonreactive Hepatitis C Ab (EIA) Nonreactive 05/06/22 11:30 WBC RBC Hgb Hct MCV MCH MCHC RDW Plt Count MPV Immature Gran % (Auto) Neut % (Auto) Lymph % (Auto) [place] % (Auto) Eos % (Auto) Baso % (Auto) Lymph # (Auto) [place] # (Auto) Eos # (Auto) Baso # (Auto) Abs Immat Gran (auto) Absolute Neuts (auto) Absolute Nucleated RBC Nucleated RBC % (auto) Sodium Potassium Chloride Carbon Dioxide Anion Gap BUN Creatinine Estim Creat Clear Calc Estimated GFR POC Glucose 102 Random Glucose Calcium Total Bilirubin Direct Bilirubin AST ALT Alkaline Phosphatase Total Creatine Kinase Troponin I High Sens B-Natriuretic Peptide Total Protein Albumin Urine Color Urine Appearance Urine pH Ur Specific [place] Urine Protein Urine Glucose (UA) Urine Ketones Urine Blood Urine Nitrite Ur Leukocyte Esterase Urine RBC Urine WBC Ur Squamous Epith Cells Urine Bacteria Urine Mucus COVID-19 (LUCIUS) COVID-19 Clin Com Hepatitis A IgM Ab Hep Bs Antigen Hep Bs Antibody Hep B Core Total Ab Hepatitis C Ab (EIA) Imaging Radiologist's impression: Impressions Chest X-Ray 05/05/22 22:04 IMPRESSION: Patchy opacity right lung base likely atelectasis or scarring with mild elevation of right hemidiaphragm. Rest of the lungs are clear.. Assessment and Plan (1) Elevated troponin: Status: Acute Elevated but flat troponin suggestive of myocardial is distress but no evidence of myocardial infarction with no clear rise and fall of her troponins. Most likely related to acute medical illness with UTI in this elderly woman with multiple medical problems including prior history of heart failure diastolic dysfunction mild aortic stenosis as well as possible underlying high likelihood of coronary artery disease. Treatment would be directed towards managing her underlying medical condition. Elevated troponin also could be due to worsening renal function which is known to happen in patient with advanced chronic kidney disease. However elevated troponin does portend a poor prognosis in the future. A does not reflect primary ACS and does not require anticoagulation for treatment. Continue treat her underlying medical conditions as well as blood pressure. Blood pressure is currently well optimized. Continue supportive care . Findings were discussed with the daughter was present at bedside. She showed understanding. Clinically there is no evidence of angina and there is no evidence of heart failure at this point in time. Overall prognosis is guarded Will sign of the case. Thank you for allowing us to partake in the care Procedures Date of Service Date of Service: 05/06/22
--- NOTE | 2022-05-06 13:25 | HO.PM.IMPN ---
Subjective Subjective Date of Service: 05/06/22 Interval History: seen and examined this morning History obtained with the assistance of a brief writer Follow-up for encephalopathy, UTI Patient is awake, alert, able to state her name and answer basic questions. She is unable to tell me where she is or why she is in the hospital. She denies any abdominal pain, reports dysuria sometimes - vague historian, difficult to obtain full review of systems Review of Systems Review of Systems: Yes Unobtainable due to mental condition Physical Exam Vital Signs: Vital Signs: Last Vital Signs Temp 97.8 F 05/06/22 11:32 Pulse 67 05/06/22 11:32 Resp 20 05/06/22 11:32 BP 140/85 H 05/06/22 11:32 Pulse Ox 97 05/06/22 11:32 O2 Del Method 05/06/22 11:32 Oxygen Flow Rate 2 05/05/22 15:28 BMI result Body Mass Index 30.5 Const: General: cooperative, comfortable, no acute distress, alert and awake Nutritional Appearance: obese Orientation/consciousness: oriented to person Resp: Effort & Inspection: normal respiratory effort, able to speak in complete sentences and no respiratory distress Auscultation: clear to auscultation bilaterally Cardio: Rate: regular rate Heart sounds: S1 normal heart sound present and S2 normal heart sound present GI: Inspection: No distended Palpation (GI): Soft to palpation and nontender Neuro: General: oriented to person Extrem: Other: s/p left BKA; no leg edema Objective Data Active Medications Acetaminophen (Acetaminophen 325 Mg Tablet) 650 mg PO Q6H PRN PRN Reason: Pain, Mild (Pain Scale 1-3) Albuterol/Ipratropium (Albuterol/Iprat 2.5/0.5mg 3 Ml Ampul.Neb) 3 ml INHALE Q4H PRN PRN Reason: Wheezing Amlodipine Besylate (Amlodipine Besylate 10 Mg Tablet) 10 mg PO DAILY [facility]; Protocol Last Admin: 05/06/22 11:31 Dose: 10 mg Documented By: IVAN Aspirin (Aspirin Enteric Coated 81 Mg Tablet.) 81 mg PO BEDTIME MATTY Atorvastatin Calcium (Atorvastatin Calcium 80 Mg Tablet) 80 mg PO BEDTIME MATTY Carvedilol (Carvedilol 6.25 Mg Tablet) 6.25 mg PO BID [facility]; Protocol Last Admin: 05/06/22 11:31 Dose: 6.25 mg Documented By: IVAN Clopidogrel Bisulfate (Clopidogrel Bisulfate 75 Mg Tablet) 75 mg PO DAILY [facility] Last Admin: 05/06/22 11:31 Dose: 75 mg Documented By: IVAN Dextrose (Dextrose 50 % 25 Gm/50 Ml Syringe) 25 gm IVPUSH Q15M PRN; Protocol PRN Reason: per Hypoglycemia Standing Ord. Famotidine (Famotidine 20 Mg Tablet) 20 mg PO Q48H [facility] Last Admin: 05/06/22 11:31 Dose: 20 mg Documented By: IVAN Furosemide (Furosemide 40 Mg Tablet) 40 mg PO BID [facility]; Protocol Last Admin: 05/06/22 11:30 Dose: 40 mg Documented By: IVAN Glucose (Glucose Gel 15 Gm Gel..Gram.) 15 gm PO Q15M PRN; Protocol PRN Reason: per Hypoglycemia Standing Ord. Heparin Sodium (Porcine) (Heparin Sodium,Porcine 5,000 Unit/Ml Vial) 5,000 unit SUBCUT Q12H [facility] Last Admin: 05/06/22 11:30 Dose: 5,000 unit Documented By: IVAN Ceftriaxone Sodium 1 gm/ (Sodium Chloride) 50 mls @ 100 mls/hr IV Q24H [facility] Insulin Glargine (Insulin Glargine,Hum.Rec.Anlog 100 Unit/Ml 10 Ml Vial) 10 unit SUBCUT BEDTIME [facility] Insulin Human Lispro (Insulin Lispro 100 Unit/Ml 3 Ml Vial) 0 unit SUBCUT QIDACHS [facility]; Protocol Last Admin: 05/06/22 11:32 Dose: Not Given Documented By: IVAN Non-Admin Reason: No Insulin Coverage Comments: POC 102 Magnesium Oxide (Magnesium Oxide 400 Mg Tablet) 400 mg PO BID [facility] Last Admin: 05/06/22 11:31 Dose: 400 mg Documented By: IVAN Melatonin (Melatonin 3 Mg Tablet) 6 mg PO BEDTIME PRN PRN Reason: Insomnia Pharmacy Consult (Consult Rx Perform Med Rec) 1 each MISCELLANE ONCE PRN PRN Reason: Consult order Senna (Sennosides 8.6 Mg Tablet) 17.2 mg PO BEDTIME PRN PRN Reason: Constipation Sertraline HCl (Sertraline Hcl 50 Mg Tablet) 50 mg PO DAILY [facility] Last Admin: 05/06/22 11:31 Dose: 50 mg Documented By: IVAN Sodium Bicarbonate (Sodium Bicarbonate 650 Mg Tablet) 650 mg PO BID [facility] Last Admin: 05/06/22 11:30 Dose: 650 mg Documented By: IVAN Sodium Chloride (0.9 % Sodium Chloride Flush 3 Ml Syringe) 3 ml IVFLUSH QSHIFT [facility] Last Admin: 05/06/22 11:30 Dose: 3 ml Documented By: IVAN Trazodone HCl (Trazodone Hcl 50 Mg Tablet) 50 mg PO BEDTIME [facility] Labs CBC & Chem 7: 05/06/22 06:08 05/06/22 06:08 Labs: Laboratory Results - last 24 hr 05/05/22 05/05/22 05/05/22 15:42 17:00 17:00 MCV 76.3 L MCH 24.7 L MCHC 32.4 RDW 14.2 Plt Count 143 L D MPV 10.7 Immature Gran % (Auto) 0.6 H Neut % (Auto) 85.4 H Lymph % (Auto) 8.2 L [place] % (Auto) 5.7 Eos % (Auto) 0.0 Baso % (Auto) 0.1 Lymph # (Auto) 1.2 [place] # (Auto) 0.8 Eos # (Auto) 0.0 Baso # (Auto) 0.0 Abs Immat Gran (auto) 0.09 H Absolute Neuts (auto) 12.4 H Absolute Nucleated RBC 0.000 Nucleated RBC % (auto) 0.0 Anion Gap 19 Estim Creat Clear Calc 10.3 Estimated GFR 10 POC Glucose 269 H Random Glucose 229 H Calcium 8.6 Total Bilirubin 0.5 Direct Bilirubin 0.2 AST 81 H ALT 223 H Alkaline Phosphatase 333 H D Total Creatine Kinase 265 H B-Natriuretic Peptide Total Protein 6.4 L Albumin 3.7 Urine Color Urine Appearance Urine pH Ur Specific [place] Urine Protein Urine Glucose (UA) Urine Ketones Urine Blood Urine Nitrite Ur Leukocyte Esterase Urine RBC Urine WBC Ur Squamous Epith Cells Urine Bacteria Urine Mucus COVID-19 ([facility]CIUS) COVID-19 Clin Com Hepatitis A IgM Ab Hep Bs Antigen Hep Bs Antibody Hep B Core Total Ab Hepatitis C Ab (EIA) 05/05/22 05/05/22 05/05/22 17:00 17:00 18:19 MCV MCH MCHC RDW Plt Count MPV Immature Gran % (Auto) Neut % (Auto) Lymph % (Auto) [place] % (Auto) Eos % (Auto) Baso % (Auto) Lymph # (Auto) [place] # (Auto) Eos # (Auto) Baso # (Auto) Abs Immat Gran (auto) Absolute Neuts (auto) Absolute Nucleated RBC Nucleated RBC % (auto) Anion Gap Estim Creat Clear Calc Estimated GFR POC Glucose Random Glucose Calcium Total Bilirubin Direct Bilirubin AST ALT Alkaline Phosphatase Total Creatine Kinase B-Natriuretic Peptide 294 H Total Protein Albumin Urine Color YELLOW Urine Appearance TURBID Urine pH 6.5 Ur Specific [place] 1.020 Urine Protein 3+ H Urine Glucose (UA) NEG Urine Ketones NEG Urine Blood 3+ H Urine Nitrite NEG Ur Leukocyte Esterase 2+ H Urine RBC 10-14 H Urine WBC 76-150 H Ur Squamous Epith Cells 1+ Urine Bacteria 3+ Urine Mucus TRACE COVID-19 ([facility]CIUS) Negative COVID-19 Clin Com See Note Hepatitis A IgM Ab Hep Bs Antigen Hep Bs Antibody Hep B Core Total Ab Hepatitis C Ab (EIA) 05/06/22 05/06/22 05/06/22 06:08 06:08 06:08 MCV 77.1 L MCH 24.6 L MCHC 31.9 RDW 14.3 Plt Count 141 L MPV 11.6 Immature Gran % (Auto) Neut % (Auto) Lymph % (Auto) [place] % (Auto) Eos % (Auto) Baso % (Auto) Lymph # (Auto) [place] # (Auto) Eos # (Auto) Baso # (Auto) Abs Immat Gran (auto) Absolute Neuts (auto) Absolute Nucleated RBC 0.000 Nucleated RBC % (auto) 0.0 Anion Gap 18 Estim Creat Clear Calc 11.6 Estimated GFR 11 POC Glucose Random Glucose 108 Calcium 8.4 Total Bilirubin 0.4 Cancelled Direct Bilirubin 0.2 Cancelled AST 49 H Cancelled ALT 166 H Cancelled Alkaline Phosphatase 269 H Cancelled Total Creatine Kinase B-Natriuretic Peptide Total Protein 5.9 L Cancelled Albumin 3.4 L Cancelled Urine Color Urine Appearance Urine pH Ur Specific [place] Urine Protein Urine Glucose (UA) Urine Ketones Urine Blood Urine Nitrite Ur Leukocyte Esterase Urine RBC Urine WBC Ur Squamous Epith Cells Urine Bacteria Urine Mucus COVID-19 ([facility]) COVID-19 Clin Com Hepatitis A IgM Ab Hep Bs Antigen Hep Bs Antibody Hep B Core Total Ab Hepatitis C Ab (EIA) 05/06/22 05/06/2205/06/22 06:08 07:10 11:30 MCV MCH MCHC RDW Plt Count MPV Immature Gran % (Auto) Neut % (Auto) Lymph % (Auto) [place] % (Auto) Eos % (Auto) Baso % (Auto) Lymph # (Auto) [place] # (Auto) Eos # (Auto) Baso # (Auto) Abs Immat Gran (auto) Absolute Neuts (auto) Absolute Nucleated RBC Nucleated RBC % (auto) Anion Gap Estim Creat Clear Calc Estimated GFR POC Glucose 92 102 Random Glucose Calcium Total Bilirubin Direct Bilirubin AST ALT Alkaline Phosphatase Total Creatine Kinase B-Natriuretic Peptide Total Protein Albumin Urine Color Urine Appearance Urine pH Ur Specific [place] Urine Protein Urine Glucose (UA) Urine Ketones Urine Blood Urine Nitrite Ur Leukocyte Esterase Urine RBC Urine WBC Ur Squamous Epith Cells Urine Bacteria Urine Mucus COVID-19 ([facility]CIUS) COVID-19 Clin Com Hepatitis A IgM Ab Nonreactive Hep Bs Antigen Negative Hep Bs Antibody NONREACTIVE Hep B Core Total Ab Nonreactive Hepatitis C Ab (EIA) Nonreactive Microbiology Microbiology Results: Microbiology 05/05/22 Unknown Urine Culture - Preliminary Urine Catheterized - Straight Catheter Gram negative eva Assessment and Plan (1) UTI (urinary tract infection): Status: Acute Plan 67-year-old female with a past medical history of hypertension, hyperlipidemia, diabetes, Left BKA, mood disorder, history of COVID-19 infection,CKD, CAD cardiomyopathy, dysphagia, CVA, gastroparesis, irritable bowel syndrome presented to the hospital from the retirement with a chief complaint nausea/confusion. admitted for following toxic metabolic encephalopathy Likely related to UTI UTI: Continue IV ceftriaxone. urine culture growing Gram-negative rods- follow final culture results Elevated troponins: Patient denies any chest pain. Troponins flat EKG similar to previous Likely elevated due to acute illness Seen by Cardiology-no ACS, but elevated cardiac enzymes are poor prognostic factor according to Cardiology No further workup indicated at this time Transaminitis: liver enzymes trending down no abdominal pain hepatitis panel negative RUQ abdominal US pending Nausea/ vomiting: Resolved CKD4 Currently at baseline. History of loculated pleural effusion: Currently breathing comfortably. CXR showing chronic changes saturating 97% on room air History of CHF: Continue home Lasix, carvedilol History of CVA: Continue home aspirin, Plavix, statin Mood Continue home sertraline, trazodone History of diabetes: Insulin sliding scale plus Lantus 10 units. Anemia of chronic disease HTN continue Coreg, Norvasc DVT prophylaxis: [facility] Code status: Full code attending - Dr. Feliz Patient requires ongoing inpatient hospitalization due to management of encephalopathy, UTI Quality Stroke Does the patient have a stroke diagnosis?: No VTE Prior VTE?: No VTE Risk Level:: Medical - moderate - high VTE Device Contraindication: Treatment Not Indicated VTE Drug Contraindication: N/A - Med Ordered
[2022-05-06 16:04] LABS: Glucose, Whole Blood 130 mg/dL (60-115)
[2022-05-06 20:02] LABS: Glucose, Whole Blood 138 mg/dL (60-115)
[2022-05-06] MEDS: Insulin Glargine,Hum.rec.anlog 100 UNIT/ML 10 ML VIAL 10 UNIT SUBCUT (22:41)
[2022-05-06] MEDS: Atorvastatin Calcium 80 MG TABLET PO (22:42)
[2022-05-06] MEDS: traZODone HCL 50 MG TABLET PO (22:42)
[2022-05-06] MEDS: Aspirin Enteric Coated 81 MG TABLET.DR PO (22:42)
[2022-05-06] MEDS: cefTRIAXone sodium 1 GM in 0.9 % Sodium Chloride 50 ML IV (22:43)
[2022-05-07 03:04] VITALS: BP 117/57; PULSE 58; RESP 17; TEMP 36.1; O2SAT 98
[2022-05-07 07:37] VITALS: BP 129/64; PULSE 61; RESP 17; TEMP 36; O2SAT 98
[2022-05-07 07:54] LABS: Glucose, Whole Blood 97 mg/dL (60-115)
[2022-05-07] MEDS: amLODIPine Besylate 10 MG TABLET PO (09:30)
[2022-05-07] MEDS: Clopidogrel Bisulfate 75 MG TABLET PO (09:31)
[2022-05-07] MEDS: Sertraline HCL 50 MG TABLET PO (09:31)
[2022-05-07] MEDS: Furosemide 40 MG TABLET PO ×2 (09:31→21:20)
[2022-05-07] MEDS: carvediloL 6.25 MG TABLET PO ×2 (09:31→21:20)
[2022-05-07] MEDS: Heparin Sodium,Porcine 5,000 UNIT/ML VIAL 5000 UNIT SUBCUT ×2 (09:31→23:15)
[2022-05-07] MEDS: Magnesium Oxide 400 MG TABLET PO ×2 (09:31→21:20)
[2022-05-07] MEDS: Sodium Bicarbonate 650 MG TABLET PO ×2 (09:32→21:20)
[2022-05-07] MEDS: 0.9 % Sodium Chloride Flush 3 ML SYRINGE IVFLUSH ×3 (09:38→23:26)
--- NOTE | 2022-05-07 10:31 | P.PNIM_ITS ---
Subjective Subjective Date of Service: 05/07/22 Interval History: History obtained via vest finisher patient awake alert answering questions appropriately, denies abdominal pain, no urinary symptoms, no fevers, no chills, no events overnight. Review of Systems Review of Systems: Yes all other systems are reviewed and are negative Physical Exam Vital Signs: Vital Signs: Last Vital Signs Temp 96.8 F 05/07/22 07:37 Pulse 61 05/07/22 07:37 Resp 17 05/07/22 07:37 BP 129/64 05/07/22 07:37 Pulse Ox 98 05/07/22 07:37 O2 Del Method 05/07/22 07:37 Oxygen Flow Rate 2 05/05/22 15:28 BMI result Body Mass Index 30.5 Const: Other: General awake alert, oriented to place and person, in no acute distress. Neck no JVD. CVS regular rate rhythm, Respiratory lungs clear to auscultation, no respiratory distress, no wheeze, no rhonchi. Gastrointestinal abdomen soft, nontender, bowel sounds audible, no guarding , no rigidity. Extremities no edema. Left BKA Neuro nonfocal moving all extremity, speech clear. Skin no rash Objective Data Active Medications Acetaminophen (Acetaminophen 325 Mg Tablet) 650 mg PO Q6H PRN PRN Reason: Pain, Mild (Pain Scale 1-3) Albuterol/Ipratropium (Albuterol/Iprat 2.5/0.5mg 3 Ml Ampul.Neb) 3 ml INHALE Q4H PRN PRN Reason: Wheezing Amlodipine Besylate (Amlodipine Besylate 10 Mg Tablet) 10 mg PO DAILY [facility]; Protocol Last Admin: 05/07/22 09:30 Dose: 10 mg Documented By: BENNIE Aspirin (Aspirin Enteric Coated 81 Mg Tablet.) 81 mg PO BEDTIME [facility] Last Admin: 05/06/22 22:42 Dose: 81 mg Documented By: RUDY Atorvastatin Calcium (Atorvastatin Calcium 80 Mg Tablet) 80 mg PO BEDTIME [facility] Last Admin: 05/06/22 22:42 Dose: 80 mg Documented By: RUDY Carvedilol (Carvedilol 6.25 Mg Tablet) 6.25 mg PO BID [facility]; Protocol Last Admin: 05/07/22 09:31 Dose: 6.25 mg Documented By: BENNIE Clopidogrel Bisulfate (Clopidogrel Bisulfate 75 Mg Tablet) 75 mg PO DAILY [facility] Last Admin: 05/07/22 09:31 Dose: 75 mg Documented By: BENNIE Dextrose (Dextrose 50 % 25 Gm/50 Ml Syringe) 25 gm IVPUSH Q15M PRN; Protocol PRN Reason: per Hypoglycemia Standing Ord. Famotidine (Famotidine 20 Mg Tablet) 20 mg PO Q48H [facility] Last Admin: 05/06/22 11:31 Dose: 20 mg Documented By: IVAN Furosemide (Furosemide 40 Mg Tablet) 40 mg PO BID [facility]; Protocol Last Admin: 05/07/22 09:31 Dose: 40 mg Documented By: BENNIE Glucose (Glucose Gel 15 Gm Gel..Gram.) 15 gm PO Q15M PRN; Protocol PRN Reason: per Hypoglycemia Standing Ord. Heparin Sodium (Porcine) (Heparin Sodium,Porcine 5,000 Unit/Ml Vial) 5,000 unit SUBCUT Q12H [facility] Last Admin: 05/07/22 09:31 Dose: 5,000 unit Documented By: BENNIE Ceftriaxone Sodium 1 gm/ (Sodium Chloride) 50 mls @ 100 mls/hr IV Q24H [facility] Last Infusion: 05/06/22 23:25 Dose: 0 mls/hr Documented By: DAVEOIC Insulin Glargine (Insulin Glargine,Hum.Rec.Anlog 100 Unit/Ml 10 Ml Vial) 10 unit SUBCUT BEDTIME [facility] Last Admin: 05/06/22 22:41 Dose: 10 unit Documented By: RUDY Insulin Human Lispro (Insulin Lispro 100 Unit/Ml 3 Ml Vial) 0 unit SUBCUT QIDACHS [facility]; Protocol Last Admin: 05/07/22 07:57 Dose: Not Given Documented By: LEVI Non-Admin Reason: No Insulin Coverage Magnesium Oxide (Magnesium Oxide 400 Mg Tablet) 400 mg PO BID [facility] Last Admin: 05/07/22 09:31 Dose: 400 mg Documented By: BENNIE Melatonin (Melatonin 3 Mg Tablet) 6 mg PO BEDTIME PRN PRN Reason: Insomnia Pharmacy Consult (Consult Rx Perform Med Rec) 1 each MISCELLANE ONCE PRN PRN Reason: Consult order Senna (Sennosides 8.6 Mg Tablet) 17.2 mg PO BEDTIME PRN PRN Reason: Constipation Sertraline HCl (Sertraline Hcl 50 Mg Tablet) 50 mg PO DAILY [facility] Last Admin: 05/07/22 09:31 Dose: 50 mg Documented By: DIAZDEClayton Sodium Bicarbonate (Sodium Bicarbonate 650 Mg Tablet) 650 mg PO BID [facility] Last Admin: 05/07/22 09:32 Dose: 650 mg Documented By: BENNIE Sodium Chloride (0.9 % Sodium Chloride Flush 3 Ml Syringe) 3 ml IVFLUSH QSHIFT [facility] Last Admin: 05/07/22 09:38 Dose: 3 ml Documented By: BENNIE Trazodone HCl (Trazodone Hcl 50 Mg Tablet) 50 mg PO BEDTIME [facility] Last Admin: 05/06/22 22:42 Dose: 50 mg Documented By: ANTOIC Labs CBC & Chem 7: 05/06/22 06:08 05/06/22 06:08 Labs: Laboratory Results - last 24 hr 05/06/22 05/06/22 05/06/22 11:30 15:55 19:54 POC Glucose 102 130 H 138 H 05/07/22 07:40 POC Glucose 97 Microbiology Microbiology Results: Microbiology 05/05/22 Unknown Urine Culture - Preliminary Urine Catheterized - Straight Catheter Klebsiella pneumoniae Assessment and Plan (1) UTI (urinary tract infection): Status: Acute Plan 67-year-old female with a past medical history of hypertension, hyperlipidemia, diabetes, Left BKA, mood disorder, history of COVID-19 infection,CKD, CAD cardiomyopathy, dysphagia, CVA, gastroparesis, irritable bowel syndrome presented to the hospital from the [place] with a chief complaint nausea/confusion. admitted for following toxic metabolic encephalopathy Resolved was Likely related to UTI UTI: Continue IV ceftriaxone. WBC remains elevated but trending down urine culture growing Gram-negative rods- follow final culture results Elevated troponins: Patient denies any chest pain. Troponins flat EKG similar to previous Likely elevated due to acute illness Seen by Cardiology-no ACS, but elevated cardiac enzymes are poor prognostic factor according to Cardiology No further workup indicated at this time Transaminitis: liver enzymes trending down no abdominal pain hepatitis panel negative RUQ abdominal US showed no intra or extrahepatic biliary ductal dilatation patient is status post cholecystectomy Nausea/ vomiting: Resolved CKD4 Currently at baseline. History of loculated pleural effusion: Currently breathing comfortably. CXR showing chronic changes saturating 97% on room air History of heart failure with reduced EF and grade 2 diastolic dysfunction No acute exacerbation, Continue home Lasix, carvedilol History of CVA: Continue home aspirin, Plavix, statin Mood Continue home sertraline, trazodone History of diabetes: Insulin sliding scale plus Lantus 10 units. Blood sugars stable Anemia of chronic disease HTN continue Coreg, Norvasc DVT prophylaxis: [facility] Code status: Full code Patient requires ongoing inpatient hospitalization due to management of encephalopathy, and UTI Quality Stroke Does the patient have a stroke diagnosis?: No VTE Prior VTE?: No VTE Risk Level:: Medical - moderate - high VTE Device Contraindication: Treatment Not Indicated VTE Drug Contraindication: N/A - Med Ordered
[2022-05-07 11:07] VITALS: BP 117/57; PULSE 63; RESP 16; TEMP 36.2; O2SAT 100
[2022-05-07 11:43] LABS: Glucose, Whole Blood 300 mg/dL (60-115)
[2022-05-07] MEDS: Insulin Lispro 100 UNIT/ML 3 ML VIAL SUBCUT ×3 (12:20→21:20)
[2022-05-07 15:46] VITALS: BP 130/68; PULSE 63; RESP 19; TEMP 36.3; O2SAT 95
[2022-05-07 16:15] LABS: Glucose, Whole Blood 289 mg/dL (60-115)
[2022-05-07 20:00] VITALS: BP 134/60; PULSE 68; RESP 18; TEMP 36.9; O2SAT 98
[2022-05-07 21:13] LABS: Glucose, Whole Blood 271 mg/dL (60-115)
[2022-05-07] MEDS: Insulin Glargine,Hum.rec.anlog 100 UNIT/ML 10 ML VIAL 10 UNIT SUBCUT (21:20)
[2022-05-07] MEDS: Aspirin Enteric Coated 81 MG TABLET.DR PO (21:20)
[2022-05-07] MEDS: traZODone HCL 50 MG TABLET PO (21:20)
[2022-05-07] MEDS: Atorvastatin Calcium 80 MG TABLET PO (21:20)
[2022-05-07] MEDS: cefTRIAXone sodium 1 GM in 0.9 % Sodium Chloride 50 ML IV (21:21)
[2022-05-07 23:33] VITALS: BP 153/82; PULSE 62; RESP 14; TEMP 35.9; O2SAT 98
[2022-05-08 03:27] VITALS: BP 145/63; PULSE 60; RESP 14; TEMP 36; O2SAT 96
[2022-05-08 08:00] VITALS: BP 116/61; PULSE 67; RESP 17; TEMP 36.3; O2SAT 100
[2022-05-08 08:12] LABS: Glucose, Whole Blood 103 mg/dL (60-115)
[2022-05-08] MEDS: amLODIPine Besylate 10 MG TABLET PO (09:11)
[2022-05-08] MEDS: Magnesium Oxide 400 MG TABLET PO ×2 (09:11→21:14)
[2022-05-08] MEDS: Sertraline HCL 50 MG TABLET PO (09:11)
[2022-05-08] MEDS: carvediloL 6.25 MG TABLET PO ×2 (09:11→21:14)
[2022-05-08] MEDS: Heparin Sodium,Porcine 5,000 UNIT/ML VIAL 5000 UNIT SUBCUT ×2 (09:11→21:15)
[2022-05-08] MEDS: Sodium Bicarbonate 650 MG TABLET PO ×2 (09:11→21:14)
[2022-05-08] MEDS: Clopidogrel Bisulfate 75 MG TABLET PO (09:11)
[2022-05-08] MEDS: Furosemide 40 MG TABLET PO ×2 (09:11→21:13)
[2022-05-08] MEDS: Famotidine 20 MG TABLET PO (09:11)
[2022-05-08] MEDS: 0.9 % Sodium Chloride Flush 3 ML SYRINGE IVFLUSH ×3 (09:12→21:23)
[2022-05-08 11:34] VITALS: BP 105/77; PULSE 69; RESP 16; TEMP 36.3; O2SAT 100
[2022-05-08 11:44] LABS: Glucose, Whole Blood 199 mg/dL (60-115)
[2022-05-08] MEDS: Insulin Lispro 100 UNIT/ML 3 ML VIAL SUBCUT ×3 (12:12→21:15)
[2022-05-08 15:16] VITALS: BP 125/70; PULSE 70; RESP 19; TEMP 36.4; O2SAT 100
--- NOTE | 2022-05-08 15:24 | P.PNIM_ITS ---
Subjective Subjective Date of Service: 05/08/22 Interval History: History obtained via interpreter and translator patient awake alert answering questions appropriately, denies urinary symptoms of urgency frequency, denies abdominal pain, no nausea no vomiting tolerating diet, need encouragement to drink fluids. Review of Systems Review of Systems: Yes all other systems are reviewed and are negative Physical Exam Vital Signs: Vital Signs: Last Vital Signs Temp 97.5 F 05/08/22 15:16 Pulse 70 05/08/22 15:16 Resp 19 05/08/22 15:16 BP 125/70 05/08/22 15:16 Pulse Ox 100 05/08/22 15:16 O2 Del Method 05/08/22 15:16 Oxygen Flow Rate 2 05/05/22 15:28 BMI result Body Mass Index 30.5 Const: Other: General awake alert, oriented to place and person, in no acute distress.? Neck no JVD. CVS? regular rate rhythm, Respiratory lungs clear to auscultation, no respiratory distress, no wheeze, no rhonchi. Gastrointestinal abdomen soft, nontender, bowel sounds audible, no guarding , no rigidity. Extremities no edema.? Left BKA Neuro nonfocal moving all extremity, speech clear. Skin no rash Objective Data Active Medications Acetaminophen (Acetaminophen 325 Mg Tablet) 650 mg PO Q6H PRN PRN Reason: Pain, Mild (Pain Scale 1-3) Albuterol/Ipratropium (Albuterol/Iprat 2.5/0.5mg 3 Ml Ampul.Neb) 3 ml INHALE Q4H PRN PRN Reason: Wheezing Amlodipine Besylate (Amlodipine Besylate 10 Mg Tablet) 10 mg PO DAILY [facility]; Protocol Last Admin: 05/08/22 09:11 Dose: 10 mg Documented By: BENNIE Aspirin (Aspirin Enteric Coated 81 Mg Tablet.) 81 mg PO BEDTIME MATTY Last Admin: 05/07/22 21:20 Dose: 81 mg Documented By: THOMAS Atorvastatin Calcium (Atorvastatin Calcium 80 Mg Tablet) 80 mg PO BEDTIME MATTY Last Admin: 05/07/22 21:20 Dose: 80 mg Documented By: THOMAS Carvedilol (Carvedilol 6.25 Mg Tablet) 6.25 mg PO BID [facility]; Protocol Last Admin: 05/08/22 09:11 Dose: 6.25 mg Documented By: BENNIE Clopidogrel Bisulfate (Clopidogrel Bisulfate 75 Mg Tablet) 75 mg PO DAILY [facility] Last Admin: 05/08/22 09:11 Dose: 75 mg Documented By: BENNIE Dextrose (Dextrose 50 % 25 Gm/50 Ml Syringe) 25 gm IVPUSH Q15M PRN; Protocol PRN Reason: per Hypoglycemia Standing Ord. Famotidine (Famotidine 20 Mg Tablet) 20 mg PO Q48H [facility] Last Admin: 05/08/22 09:11 Dose: 20 mg Documented By: BENNIE Furosemide (Furosemide 40 Mg Tablet) 40 mg PO BID MATTY; Protocol Last Admin: 05/08/22 09:11 Dose: 40 mg Documented By: BENNIE Glucose (Glucose Gel 15 Gm Gel..Gram.) 15 gm PO Q15M PRN; Protocol PRN Reason: per Hypoglycemia Standing Ord. Heparin Sodium (Porcine) (Heparin Sodium,Porcine 5,000 Unit/Ml Vial) 5,000 unit SUBCUT Q12H [facility] Last Admin: 05/08/22 09:11 Dose: 5,000 unit Documented By: BENNIE Meropenem 500 mg/ Sodium (Chloride) 50 mls @ 100 mls/hr IV Q12H [facility] Last Infusion: 05/08/22 14:04 Dose: 0 mls/hr Documented By: BENNIE Insulin Glargine (Insulin Glargine,Hum.Rec.Anlog 100 Unit/Ml 10 Ml Vial) 10 unit SUBCUT BEDTIME [facility] Last Admin: 05/07/22 21:20 Dose: 10 unit Documented By: THOMAS Insulin Human Lispro (Insulin Lispro 100 Unit/Ml 3 Ml Vial) 0 unit SUBCUT QIDACHS [facility]; Protocol Last Admin: 05/08/22 12:12 Dose: 2 unit Documented By: BENNIE Magnesium Oxide (Magnesium Oxide 400 Mg Tablet) 400 mg PO BID [facility] Last Admin: 05/08/22 09:11 Dose: 400 mg Documented By: BENNIE Melatonin (Melatonin 3 Mg Tablet) 6 mg PO BEDTIME PRN PRN Reason: Insomnia Pharmacy Consult (Consult Rx Perform Med Rec) 1 each MISCELLANE ONCE PRN PRN Reason: Consult order Senna (Sennosides 8.6 Mg Tablet) 17.2 mg PO BEDTIME PRN PRN Reason: Constipation Sertraline HCl (Sertraline Hcl 50 Mg Tablet) 50 mg PO DAILY [facility] Last Admin: 05/08/22 09:11 Dose: 50 mg Documented By: CYRUSDEClayton Sodium Bicarbonate (Sodium Bicarbonate 650 Mg Tablet) 650 mg PO BID [facility] Last Admin: 05/08/22 09:11 Dose: 650 mg Documented By: BENNIE Sodium Chloride (0.9 % Sodium Chloride Flush 3 Ml Syringe) 3 ml IVFLUSH QSHIFT [facility] Last Admin: 05/08/22 09:12 Dose: 3 ml Documented By: BENNIE Trazodone HCl (Trazodone Hcl 50 Mg Tablet) 50 mg PO BEDTIME [facility] Last Admin: 05/07/22 21:20 Dose: 50 mg Documented By: CLAUDY Labs CBC & Chem 7: 05/06/22 06:08 05/06/22 06:08 Labs: Laboratory Results - last 24 hr 05/07/22 05/07/22 05/08/22 15:45 20:56 08:07 POC Glucose 289 H 271 H 103 05/08/22 11:37 POC Glucose 199 H Microbiology Microbiology Results: Microbiology 05/05/22 Unknown Urine Culture - Final Urine Catheterized - Straight Catheter Klebsiella pneumoniae Assessment and Plan (1) UTI (urinary tract infection): Status: Acute Plan 67-year-old female with a past medical history of hypertension, hyperlipidemia, diabetes, Left BKA, mood disorder, history of COVID-19 infection,CKD, CAD cardiomyopathy, dysphagia, CVA, gastroparesis, irritable bowel syndrome presented to the hospital from the [facility] with a chief complaint nausea/confusion. admitted for following toxic metabolic encephalopathy Resolved was Likely related to UTI UTI: Urine culture grew Klebsiella pneumoniae ESBL positive sensitive only to IV ertapenem, will DC IV ceftriaxone will place on IV Meropenem WBC remains elevated but trending down Id consult for duration of antibiotic Elevated troponins: Patient denies any chest pain. Troponins flat EKG similar to previous Likely elevated due to acute illness Seen by Cardiology-no ACS, but elevated cardiac enzymes are poor prognostic factor according to Cardiology No further workup indicated at this time Transaminitis: liver enzymes trending down no abdominal pain hepatitis panel negative RUQ abdominal US showed no intra or extrahepatic biliary ductal dilatation patient is status post cholecystectomy Nausea/ vomiting: Resolved CKD4 Currently at baseline. History of loculated pleural effusion: Currently breathing comfortably. CXR showing chronic changes saturating 97% on room air History of heart failure with reduced EF and grade 2 diastolic dysfunction No acute exacerbation, Continue home Lasix, carvedilol History of CVA: Continue home aspirin, Plavix, statin Mood Continue home sertraline, trazodone History of diabetes: Insulin sliding scale plus Lantus 10 units. Blood sugars stable Anemia of chronic disease HTN continue Coreg, Norvasc BP stable DVT prophylaxis: [facility] Code status: Full code Patient requires ongoing inpatient hospitalization due to management of ESBL positive Klebsiella pneumonia resistant bacteria on iv abx Quality Stroke Does the patient have a stroke diagnosis?: No VTE Prior VTE?: No VTE Risk Level:: Medical - moderate - high VTE Device Contraindication: Treatment Not Indicated VTE Drug Contraindication: N/A - Med Ordered
[2022-05-08 16:22] LABS: Glucose, Whole Blood 250 mg/dL (60-115)
[2022-05-08 18:50] VITALS: BP 138/64; PULSE 74; RESP 19; TEMP 37.2; O2SAT 98
[2022-05-08 21:12] LABS: Glucose, Whole Blood 249 mg/dL (60-115)
[2022-05-08] MEDS: Melatonin 3 MG TABLET 6 MG PO (21:13)
[2022-05-08] MEDS: Atorvastatin Calcium 80 MG TABLET PO (21:13)
[2022-05-08] MEDS: Aspirin Enteric Coated 81 MG TABLET.DR PO (21:14)
[2022-05-08] MEDS: traZODone HCL 50 MG TABLET PO (21:14)
[2022-05-08] MEDS: Insulin Glargine,Hum.rec.anlog 100 UNIT/ML 10 ML VIAL 10 UNIT SUBCUT (21:15)
[2022-05-08 23:50] VITALS: BP 158/76; PULSE 76; RESP 18; TEMP 37.1; O2SAT 99
[2022-05-09 03:35] VITALS: BP 80/46; PULSE 69; RESP 17; TEMP 36.4; O2SAT 100
[2022-05-09 05:49] LABS: Hematocrit 34.8 % (37.0-47.0); Hemoglobin 11.3 g/dl (12.0-16.0); Mean Corpuscular HGB Conc 32.5 g/dl (31.0-35.0); Mean Corpuscular Hemoglobin 24.6 pg (27.0-33.0); Mean Corpuscular Volume 75.7 fL (80.0-98.0); Mean Platelet Volume 11.3 fL (9.4-12.3); Platelet Count 114 X10*3/uL (160-400); Red Cell Distribution Width 14.4 % (11.0-16.0); White Blood Count 10.3 X10*3/uL (4.8-10.8)
[2022-05-09 06:24] LABS: Alanine Aminotransferase 69 U/L (0-31); Albumin Level 3.2 g/dL (3.5-5.0); Alkaline Phosphatase 212 U/L (39-117); Anion Gap 17 (12-20); Aspartate Amino Transferase 22 U/L (5-31); Bilirubin Direct 0.2 mg/dL (0.0-0.5); Bilirubin Total 0.5 mg/dL (0.0-1.0); Blood Urea Nitrogen 80 mg/dL (9-16); Calcium 8.1 mg/dL (8.4-10.2); Carbon Dioxide 24 mmol/L (22-29); Chloride 102 mmol/L (96-108); Creatinine Clr Calc Pharmacy 11.7; Estimated Glomerular Filt Rate 11; Glucose Random 135 mg/dL (60-115); Potassium 4.3 mmol/L (3.3-5.1); Sodium 139 mmol/L (135-145); Total Protein 5.5 g/dL (6.5-8.0)
[2022-05-09 07:33] VITALS: BP 134/90; PULSE 70; RESP 20; TEMP 36.6; O2SAT 98
[2022-05-09 07:43] LABS: Glucose, Whole Blood 113 mg/dL (60-115)
[2022-05-09] MEDS: Furosemide 40 MG TABLET PO ×2 (08:26→20:30)
[2022-05-09] MEDS: Sertraline HCL 50 MG TABLET PO (08:26)
[2022-05-09] MEDS: Sodium Bicarbonate 650 MG TABLET PO ×2 (08:26→20:30)
[2022-05-09] MEDS: carvediloL 6.25 MG TABLET PO ×2 (08:26→20:31)
[2022-05-09] MEDS: amLODIPine Besylate 10 MG TABLET PO (08:26)
[2022-05-09] MEDS: Clopidogrel Bisulfate 75 MG TABLET PO (08:27)
[2022-05-09] MEDS: Magnesium Oxide 400 MG TABLET PO ×2 (08:27→20:31)
[2022-05-09] MEDS: 0.9 % Sodium Chloride Flush 3 ML SYRINGE IVFLUSH ×3 (08:27→20:36)
--- NOTE | 2022-05-09 11:14 | P.PNIM_ITS ---
Subjective Subjective Date of Service: 05/09/22 Interval History: This history was taken in Hungarian from the patient. She denies fever or chills, nausea or vomiting, and dysuria. Review of Systems Review of Systems: Yes all other systems are reviewed and are negative Physical Exam Vital Signs: Vital Signs: Last Vital Signs Temp 97.9 F 05/09/22 07:33 Pulse 70 05/09/22 07:33 Resp 20 05/09/22 07:33 BP 134/90 H 05/09/22 07:33 Pulse Ox 98 05/09/22 07:33 O2 Del Method 05/09/22 07:33 Oxygen Flow Rate 2 05/05/22 15:28 BMI result Body Mass Index 30.5 Gen: in no acute distress HEENT: sclera anicteric, moist mucus membranes Neck: supple Lungs: clear to auscultation bilaterally Heart: regular rate and rhythm, no murmurs Abd: soft, non-tender, non-distended Ext: no edema, L BKA Skin: warm/well-perfused Neuro: alert, no focal findings Psych: appropriate affect Objective Data Active Medications Acetaminophen (Acetaminophen 325 Mg Tablet) 650 mg PO Q6H PRN PRN Reason: Pain, Mild (Pain Scale 1-3) Albuterol/Ipratropium (Albuterol/Iprat 2.5/0.5mg 3 Ml Ampul.Neb) 3 ml INHALE Q4H PRN PRN Reason: Wheezing Amlodipine Besylate (Amlodipine Besylate 10 Mg Tablet) 10 mg PO DAILY [facility]; Protocol Last Admin: 05/09/22 08:26 Dose: 10 mg Documented By: BENNIE Aspirin (Aspirin Enteric Coated 81 Mg Tablet.) 81 mg PO BEDTIME [facility] Last Admin: 05/08/22 21:14 Dose: 81 mg Documented By: REVA Atorvastatin Calcium (Atorvastatin Calcium 80 Mg Tablet) 80 mg PO BEDTIME [facility] Last Admin: 05/08/22 21:13 Dose: 80 mg Documented By: REVA Carvedilol (Carvedilol 6.25 Mg Tablet) 6.25 mg PO BID [facility]; Protocol Last Admin: 05/09/22 08:26 Dose: 6.25 mg Documented By: BENNIE Clopidogrel Bisulfate (Clopidogrel Bisulfate 75 Mg Tablet) 75 mg PO DAILY [facility] Last Admin: 05/09/22 08:27 Dose: 75 mg Documented By: BENNIE Dextrose (Dextrose 50 % 25 Gm/50 Ml Syringe) 25 gm IVPUSH Q15M PRN; Protocol PRN Reason: per Hypoglycemia Standing Ord. Famotidine (Famotidine 20 Mg Tablet) 20 mg PO Q48H [facility] Last Admin: 05/08/22 09:11 Dose: 20 mg Documented By: BENNIE Furosemide (Furosemide 40 Mg Tablet) 40 mg PO BID MATTY; Protocol Last Admin: 05/09/22 08:26 Dose: 40 mg Documented By: BENNIE Glucose (Glucose Gel 15 Gm Gel..Gram.) 15 gm PO Q15M PRN; Protocol PRN Reason: per Hypoglycemia Standing Ord. Heparin Sodium (Porcine) (Heparin Sodium,Porcine 5,000 Unit/Ml Vial) 5,000 unit SUBCUT Q12H [facility] Last Admin: 05/08/22 21:15 Dose: 5,000 unit Documented By: REVA Meropenem 500 mg/ Sodium (Chloride) 50 mls @ 100 mls/hr IV Q12H [facility] Last Infusion: 05/09/22 02:00 Dose: 0 mls/hr Documented By: REVA Insulin Glargine (Insulin Glargine,Hum.Rec.Anlog 100 Unit/Ml 10 Ml Vial) 10 unit SUBCUT BEDTIME [facility] Last Admin: 05/08/22 21:15 Dose: 10 unit Documented By: REVA Insulin Human Lispro (Insulin Lispro 100 Unit/Ml 3 Ml Vial) 0 unit SUBCUT QIDACHS [facility]; Protocol Last Admin: 05/09/22 08:28 Dose: Not Given Documented By: BENNIE Non-Admin Reason: No Insulin Coverage Magnesium Oxide (Magnesium Oxide 400 Mg Tablet) 400 mg PO BID [facility] Last Admin: 05/09/22 08:27 Dose: 400 mg Documented By: BENNIE Melatonin (Melatonin 3 Mg Tablet) 6 mg PO BEDTIME PRN PRN Reason: Insomnia Last Admin: 05/08/22 21:13 Dose: 6 mg Documented By: REVA Pharmacy Consult (Consult Rx Perform Med Rec) 1 each MISCELLANE ONCE PRN PRN Reason: Consult order Senna (Sennosides 8.6 Mg Tablet) 17.2 mg PO BEDTIME PRN PRN Reason: Constipation Sertraline HCl (Sertraline Hcl 50 Mg Tablet) 50 mg PO DAILY [facility] Last Admin: 05/09/22 08:26 Dose: 50 mg Documented By: BENNIE Sodium Bicarbonate (Sodium Bicarbonate 650 Mg Tablet) 650 mg PO BID [facility] Last Admin: 05/09/22 08:26 Dose: 650 mg Documented By: BENNIE Sodium Chloride (0.9 % Sodium Chloride Flush 3 Ml Syringe) 3 ml IVFLUSH QSHIFT [facility] Last Admin: 05/09/22 08:27 Dose: 3 ml Documented By: BENNIE Trazodone HCl (Trazodone Hcl 50 Mg Tablet) 50 mg PO BEDTIME [facility] Last Admin: 05/08/22 21:14 Dose: 50 mg Documented By: REVA Labs CBC & Chem 7: 05/09/22 05:25 05/09/22 05:25 Labs: Laboratory Results - last 24 hr 05/08/22 05/08/22 05/08/22 11:37 15:28 21:04 MCV MCH MCHC RDW Plt Count MPV Absolute Nucleated RBC Nucleated RBC % (auto) Anion Gap Estim Creat Clear Calc Estimated GFR POC Glucose 199 H 250 H 249 H Random Glucose Calcium Total Bilirubin Direct Bilirubin AST ALT Alkaline Phosphatase Total Protein Albumin 05/09/22 05/09/22 05/09/22 05:25 05:25 07:31 MCV 75.7 L MCH 24.6 L MCHC 32.5 RDW 14.4 Plt Count 114 L MPV 11.3 Absolute Nucleated RBC 0.000 Nucleated RBC % (auto) 0.0 Anion Gap 17 Estim Creat Clear Calc 11.7 Estimated GFR 11 POC Glucose 113 Random Glucose 135 H Calcium 8.1 L Total Bilirubin 0.5 Direct Bilirubin 0.2 AST 22 D ALT 69 H Alkaline Phosphatase 212 H D Total Protein 5.5 L Albumin 3.2 L Microbiology Microbiology Results: Microbiology 05/05/22 Unknown Urine Culture - Final Urine Catheterized - Straight Catheter Klebsiella pneumoniae Assessment and Plan (1) UTI (urinary tract infection): Status: Acute Plan hospital d#5 67yo F with HTN, HLD, DM2 s/p BKA, mood disorder, CKD4, CAD, cardiomyopathy, dysphagia, CVA, gastroparesis, IBS admitted from [facility] with confusion and nausea [resolved] # toxic-metabolic encephalopathy - resolved after treatment of UTI started # ESBL UTI [Klebsiella pneumoniae] - IV meropenem d#2 - ID consult to determine duration, will likely need midline catheter to complete course - leukocytosis resolved # Tn-I elevation - flat, no anginal symptoms, no new EKG changes; per Cardiology, no further workup indicated; could be due to renal insufficiency # transaminasemia - LFTs improving, hepatitis panel negative, GLORIA with no biliary ductal dilation and pt is s/p cholecystectomy # CKD4 - SCr close to baseline # hx loculated pleural effusion - no respiratory symptoms, CXR with chronic changes, not hypoxic # chronic HF with reduced EF + grade 2 diastolic dysfunction - continue home furosemide + carvedilol # hx CVA - continue DAPT + statin # mood disorder - continue sertraline + trazodone # DM2 - continue basal/bolus insulin # anemia of CKD - Hb stable # HTN - continue carvedilol + amlodipine # VTE ppx: UFH In my clinical judgment, the patient requires continued hospitalization for the following reasons: IV ABX Quality Stroke Does the patient have a stroke diagnosis?: No VTE Prior VTE?: No VTE Risk Level:: Medical - moderate - high VTE Device Contraindication: Treatment Not Indicated VTE Drug Contraindication: N/A - Med Ordered
[2022-05-09 11:32] LABS: Glucose, Whole Blood 107 mg/dL (60-115)
[2022-05-09 11:38] VITALS: BP 135/86; PULSE 72; RESP 18; TEMP 36.6; O2SAT 100
--- NOTE | 2022-05-09 12:28 | P.CDIC_ITS ---
CDI Concurrent Query Documentation Clarification: PHYSICIAN'S DOCUMENTATION REQUEST Date of Query: 05/09/22 1228 Patient Name: Debbie Guerra Admit Date: 05/05/22 Dear Doctor, A review of the medical record indicates additional documentation may be needed. Please review below and update the documentation accordingly. Clinical Indicators: Risk Factors/Clinical Indicators/Treatments Diabetes mellitus Type 2 POC glucose - 92 130 250 H 249 H 300 H Insulin Please clarify the following regarding Diabetes Mellitus (DM): * Hyperglycemia * Uncontrolled * Poorly controlled * No complications of DM * Other complication ? please specify * Unable to determine Use of terms such as suspected, likely, concern for, or probable (associated with a specific diagnosis that is being evaluated, monitored, or treated as if it exists) are acceptable and can be coded in the inpatient setting, when documented at the time of discharge. Thank you, Kylie Alonso [facility], CDIS Extension: [phone] Please use your independent medical judgment in providing your response. THIS QUERY IS PART OF THE PERMANENT MEDICAL RECORD Provider Response: Other Other Diagnosis: DM hyperglycemia
--- NOTE | 2022-05-09 13:25 | W.PM.IDCN ---
History of Present Illness Data of Consult Service Date: 05/09/22 Requesting physician: Candido Noe Primary Care Provider: Alexys Avila MD HPI Reason for consult: urinary infection She presents on 05/05 with confusion and bilious vomiting for a day. She had no fever or chills. She has DM and HTN. She had no urinary complaints or concerns. Urinalysis has many WBC. 05/05 urine culture Klebsiella ESBL sensitive to Ertapenem. Review of Systems Review of Systems: Yes all other systems are reviewed and are negative PMFSH Past Medical History Medical History Acute on chronic renal failure Acute worsening of stage 4 chronic kidney disease Anemia Blister of finger without infection Cholecystectomy planned Chronic heart failure with preserved ejection fraction (HFpEF) CKD (chronic kidney disease) CKD (chronic kidney disease) stage 3, GFR 30-59 ml/min CKD (chronic kidney disease) stage 4, GFR 15-29 ml/min CKD (chronic kidney disease), stage IV Congestive heart failure Diabetes Diabetes mellitus Elevated d-dimer Essential hypertension Gastroparesis GERD (gastroesophageal reflux disease) Hand pain Hernia HLD (hyperlipidemia) HTN (hypertension) Hypomagnesemia Irritable bowel syndrome with diarrhea Lightheadedness Low blood pressure Non-ST elevated myocardial infarction Nonischemic cardiomyopathy Other and unspecified hyperlipidemia Pharyngoesophageal dysphagia Type 2 diabetes mellitus with unspecified complications Family History Family History Father Lung cancer Mother Diabetes HTN (hypertension) Heart disease Sister Diabetes Heart disease Brother Heart disease Son Diabetes Daughter Diabetes Surgical History Surgical History H/O: hysterectomy History of esophagogastroduodenoscopy (EGD) Hx of colonoscopy Hx of eye surgery Social History Social History Household Members: Unknown / Unable to assess Household Members Other:: SNF Housing: Assisted Living Facility Do you presently have visiting nurse or other home services: No Unable to assess alcohol history related to: Unknown Alcohol intake: never Patient Tobacco Use Status: Never used Tobacco Second Hand Smoke Exposure: No Currently Displaying Signs/Symptoms of Drug Intoxication Withdrawal: No Advance Directives: Yes Advance Directives on File: Yes Advance Directives Date on File: 02/02/22 Do you have thoughts of harming others: None Do you have a plan to hurt others: No Plan Recently lost weight without trying: Unsure Eating poorly because of decreased appetite: No Nutrition Risks: No Nutritional Risk Patient : No : No Poor oral hygiene: No service: No Current occupational status: disabled Meds Allergies Allergy/AdvReac Type Severity Reaction Status Date / Time latex [LATEX] Allergy Intermediate ITCHY Verified 06/29/21 13:08 Active Medications: Current Medications Acetaminophen (Acetaminophen 325 Mg Tablet) 650 mg PO Q6H PRN PRN Reason: Pain, Mild (Pain Scale 1-3) Albuterol/Ipratropium (Albuterol/Iprat 2.5/0.5mg 3 Ml Ampul.Neb) 3 ml INHALE Q4H PRN PRN Reason: Wheezing Amlodipine Besylate (Amlodipine Besylate 10 Mg Tablet) 10 mg PO DAILY [facility]; Protocol Last Admin: 05/09/22 08:26 Dose: 10 mg Aspirin (Aspirin Enteric Coated 81 Mg Tablet.Dr) 81 mg PO BEDTIME [facility] Last Admin: 05/08/22 21:14 Dose: 81 mg Atorvastatin Calcium (Atorvastatin Calcium 80 Mg Tablet) 80 mg PO BEDTIME [facility] Last Admin: 05/08/22 21:13 Dose: 80 mg Carvedilol (Carvedilol 6.25 Mg Tablet) 6.25 mg PO BID [facility]; Protocol Last Admin: 05/09/22 08:26 Dose: 6.25 mg Clopidogrel Bisulfate (Clopidogrel Bisulfate 75 Mg Tablet) 75 mg PO DAILY [facility] Last Admin: 05/09/22 08:27 Dose: 75 mg Dextrose (Dextrose 50 % 25 Gm/50 Ml Syringe) 25 gm IVPUSH Q15M PRN; Protocol PRN Reason: per Hypoglycemia Standing Ord. Famotidine (Famotidine 20 Mg Tablet) 20 mg PO Q48H [facility] Last Admin: 05/08/22 09:11 Dose: 20 mg Furosemide (Furosemide 40 Mg Tablet) 40 mg PO BID [facility]; Protocol Last Admin: 05/09/22 08:26 Dose: 40 mg Glucose (Glucose Gel 15 Gm Gel..Gram.) 15 gm PO Q15M PRN; Protocol PRN Reason: per Hypoglycemia Standing Ord. Heparin Sodium (Porcine) (Heparin Sodium,Porcine 5,000 Unit/Ml Vial) 5,000 unit SUBCUT Q12H [facility] Last Admin: 05/09/22 11:29 Dose: Not Given Meropenem 500 mg/ Sodium (Chloride) 50 mls @ 100 mls/hr IV Q12H [facility] Last Admin: 05/09/22 12:59 Dose: 100 mls/hr Insulin Glargine (Insulin Glargine,Hum.Rec.Anlog 100 Unit/Ml 10 Ml Vial) 10 unit SUBCUT BEDTIME [facility] Last Admin: 05/08/22 21:15 Dose: 10 unit Insulin Human Lispro (Insulin Lispro 100 Unit/Ml 3 Ml Vial) 0 unit SUBCUT QIDACHS [facility]; Protocol Last Admin: 05/09/22 11:52 Dose: Not Given Magnesium Oxide (Magnesium Oxide 400 Mg Tablet) 400 mg PO BID [facility] Last Admin: 05/09/22 08:27 Dose: 400 mg Melatonin (Melatonin 3 Mg Tablet) 6 mg PO BEDTIME PRN PRN Reason: Insomnia Last Admin: 05/08/22 21:13 Dose: 6 mg Pharmacy Consult (Consult Rx Perform Med Rec) 1 each MISCELLANE ONCE PRN PRN Reason: Consult order Senna (Sennosides 8.6 Mg Tablet) 17.2 mg PO BEDTIME PRN PRN Reason: Constipation Sertraline HCl (Sertraline Hcl 50 Mg Tablet) 50 mg PO DAILY [facility] Last Admin: 05/09/22 08:26 Dose: 50 mg Sodium Bicarbonate (Sodium Bicarbonate 650 Mg Tablet) 650 mg PO BID [facility] Last Admin: 05/09/22 08:26 Dose: 650 mg Sodium Chloride (0.9 % Sodium Chloride Flush 3 Ml Syringe) 3 ml IVFLUSH QSHIFT [facility] Last Admin: 05/09/22 08:27 Dose: 3 ml Trazodone HCl (Trazodone Hcl 50 Mg Tablet) 50 mg PO BEDTIME [facility] Last Admin: 05/08/22 21:14 Dose: 50 mg Home Medications Medication Instructions Recorded Confirmed Last Taken Type aspirin 81 mg tablet,delayed 81 mg PO BEDTIME 06/20/21 05/05/22 01/30/22 History release atorvastatin 80 mg tablet 80 mg PO BEDTIME 06/20/21 05/05/22 01/30/22 History calcium carbonate 600 mg-vitamin 1 tab PO BID 06/20/21 05/05/2201/30/22 History D3 10 mcg (400 unit) tablet clopidogrel 75 mg tablet 75 mg PO DAILY 06/20/21 05/05/22 01/30/22 History magnesium oxide 400 mg (241.3 mg 400 mg PO BID 06/20/21 05/05/22 01/30/22 History magnesium) tablet sertraline 50 mg tablet 50 mg PO DAILY 06/20/21 05/05/22 01/30/22 History trazodone 50 mg tablet 50 mg PO BEDTIME 06/20/21 05/05/22 01/30/22 History insulin glargine 100 unit/mL (3 18 unit subcut DAILY 03/25/22 05/05/22 Unknown History mL) subcutaneous pen (Lantus Solostar U-100 Insulin) acetaminophen 500 mg tablet 2 tab PO QID PRN fever 05/05/22 05/05/22 Unknown History insulin lispro 100 unit/mL 1 sliding scale dose subcut 05/05/22 05/05/22 Unknown History subcutaneous solution (Humalog USEASDIRECTD U-100 Insulin) ipratropium 0.5 mg-albuterol 3 mg 3 ml inhalation Q4H PRN Wheezing 05/05/22 05/05/22 Unknown History (2.5 mg base)/3 mL nebulization soln Physical Exam Vital Signs: Vital Signs: Last Vital Signs Temp 97.8 F 05/09/22 11:38 Pulse 72 05/09/22 11:38 Resp 18 05/09/22 11:38 BP 135/86 05/09/22 11:38 Pulse Ox 100 05/09/22 11:38 O2 Del Method 05/09/22 11:38 Oxygen Flow Rate 2 05/05/22 15:28 BMI result Body Mass Index 30.5 Const: General: cooperative HEENT: Head: Yes normal to inspection Face and sinus: Yes normal facial exam Mouth: Normal oral and palatal mucosa present Teeth and gingiva: dentition normal Eyes: General: appearance normal, both eyes and all related structures Pupils: Equal, round and reactive pupils present Resp: Effort & Inspection: normal respiratory effort Cardio: Rate: regular rate Rhythm: regular rhythm GI: Palpation (GI): Soft to palpation and nontender : General: Yes no CVA tenderness Back/Spine/Pelvis: Back: no CVA tenderness Skin: General skin exam: no rashes or lesions noted Neuro: General: moves all extremities Cranial nerves: Yes Equal, round and reactive pupils present Extrem: General: Yes normal to inspection Psych: Appearance: well kempt Judgement: Poor judgement present (Psych) Results Labs CBC & Chem 7: 05/09/22 05:25 05/09/22 05:25 Labs: Short CBC 05/09/22 Range/Units 05:25 WBC 10.3 (4.8-10.8) X10*3/uL Hgb 11.3 L (12.0-16.0) g/dl Hct 34.8 L (37.0-47.0) % Plt Count 114 L (160-400) X10*3/uL BMP 05/09/22 05:25 Sodium 139 Potassium 4.3 Chloride 102 Carbon Dioxide 24 BUN 80 H Creatinine 3.97 H Calcium 8.1 L Liver Function 05/09/22 Range/Units 05:25 Total Bilirubin 0.5 (0.0-1.0) mg/dL Direct Bilirubin 0.2 (0.0-0.5) mg/dL AST 22 D (5-31) U/L ALT 69 H (0-31) U/L Alkaline Phosphatase 212 H D (39-117) U/L Albumin 3.2 L (3.5-5.0) g/dL Microbiology Microbiology Results: Microbiology 05/05/22 Unknown Urine Catheterized - Straight Catheter Urine Culture - Final Klebsiella pneumoniae Assessment and Plan (1) UTI (urinary tract infection): Status: Acute the symptoms are consistent with acute infection with confusion and pyuria she has ESBL Klebsiella (2) Generalized weakness: Status: Acute Plan Ertapenem for 10 days Consider acidifying urine with methenamine if recurrent UTI.
--- NOTE | 2022-05-09 13:31 | P.CNID_ITS ---
[facility] Past Medical History Medical History Acute on chronic renal failure Acute worsening of stage 4 chronic kidney disease Anemia Blister of finger without infection Cholecystectomy planned Chronic heart failure with preserved ejection fraction (HFpEF) CKD (chronic kidney disease) CKD (chronic kidney disease) stage 3, GFR 30-59 ml/min CKD (chronic kidney disease) stage 4, GFR 15-29 ml/min CKD (chronic kidney disease), stage IV Congestive heart failure Diabetes Diabetes mellitus Elevated d-dimer Essential hypertension Gastroparesis GERD (gastroesophageal reflux disease) Hand pain Hernia HLD (hyperlipidemia) HTN (hypertension) Hypomagnesemia Irritable bowel syndrome with diarrhea Lightheadedness Low blood pressure Non-ST elevated myocardial infarction Nonischemic cardiomyopathy Other and unspecified hyperlipidemia Pharyngoesophageal dysphagia Type 2 diabetes mellitus with unspecified complications Family History Family History Father Lung cancer Mother Diabetes HTN (hypertension) Heart disease Sister Diabetes Heart disease Brother Heart disease Son Diabetes Daughter Diabetes Surgical History Surgical History H/O: hysterectomy History of esophagogastroduodenoscopy (EGD) Hx of colonoscopy Hx of eye surgery Social History Social History Household Members: Unknown / Unable to assess Household Members Other:: SNF Housing: Assisted Living Facility Do you presently have visiting nurse or other home services: No Unable to assess alcohol history related to: Unknown Alcohol intake: never Patient Tobacco Use Status: Never used Tobacco Second Hand Smoke Exposure: No Currently Displaying Signs/Symptoms of Drug Intoxication Withdrawal: No Advance Directives: Yes Advance Directives on File: Yes Advance Directives Date on File: 02/02/22 Do you have thoughts of harming others: None Do you have a plan to hurt others: No Plan Recently lost weight without trying: Unsure Eating poorly because of decreased appetite: No Nutrition Risks: No Nutritional Risk Patient : No : No Poor oral hygiene: No service: No Current occupational status: disabled Meds Allergies Allergy/AdvReac Type Severity Reaction Status Date / Time latex [LATEX] Allergy Intermediate ITCHY Verified 06/29/21 13:08 Active Medications: Current Medications Acetaminophen (Acetaminophen 325 Mg Tablet) 650 mg PO Q6H PRN PRN Reason: Pain, Mild (Pain Scale 1-3) Albuterol/Ipratropium (Albuterol/Iprat 2.5/0.5mg 3 Ml Ampul.Neb) 3 ml INHALE Q4H PRN PRN Reason: Wheezing Amlodipine Besylate (Amlodipine Besylate 10 Mg Tablet) 10 mg PO DAILY [facility]; Protocol Last Admin: 05/09/22 08:26 Dose: 10 mg Aspirin (Aspirin Enteric Coated 81 Mg Tablet.Dr) 81 mg PO BEDTIME [facility] Last Admin: 05/08/22 21:14 Dose: 81 mg Atorvastatin Calcium (Atorvastatin Calcium 80 Mg Tablet) 80 mg PO BEDTIME [facility] Last Admin: 05/08/22 21:13 Dose: 80 mg Carvedilol (Carvedilol 6.25 Mg Tablet) 6.25 mg PO BID [facility]; Protocol Last Admin: 05/09/22 08:26 Dose: 6.25 mg Clopidogrel Bisulfate (Clopidogrel Bisulfate 75 Mg Tablet) 75 mg PO DAILY [facility] Last Admin: 05/09/22 08:27 Dose: 75 mg Dextrose (Dextrose 50 % 25 Gm/50 Ml Syringe) 25 gm IVPUSH Q15M PRN; Protocol PRN Reason: per Hypoglycemia Standing Ord. Famotidine (Famotidine 20 Mg Tablet) 20 mg PO Q48H [facility] Last Admin: 05/08/22 09:11 Dose: 20 mg Furosemide (Furosemide 40 Mg Tablet) 40 mg PO BID [facility]; Protocol Last Admin: 05/09/22 08:26 Dose: 40 mg Glucose (Glucose Gel 15 Gm Gel..Gram.) 15 gm PO Q15M PRN; Protocol PRN Reason: per Hypoglycemia Standing Ord. Heparin Sodium (Porcine) (Heparin Sodium,Porcine 5,000 Unit/Ml Vial) 5,000 unit SUBCUT Q12H [facility] Last Admin: 05/09/22 11:29 Dose: Not Given Meropenem 500 mg/ Sodium (Chloride) 50 mls @ 100 mls/hr IV Q12H [facility] Last Admin: 05/09/22 12:59 Dose: 100 mls/hr Insulin Glargine (Insulin Glargine,Hum.Rec.Anlog 100 Unit/Ml 10 Ml Vial) 10 unit SUBCUT BEDTIME [facility] Last Admin: 05/08/22 21:15 Dose: 10 unit Insulin Human Lispro (Insulin Lispro 100 Unit/Ml 3 Ml Vial) 0 unit SUBCUT QIDACHS [facility]; Protocol Last Admin: 05/09/22 11:52 Dose: Not Given Magnesium Oxide (Magnesium Oxide 400 Mg Tablet) 400 mg PO BID [facility] Last Admin: 05/09/22 08:27 Dose: 400 mg Melatonin (Melatonin 3 Mg Tablet) 6 mg PO BEDTIME PRN PRN Reason: Insomnia Last Admin: 05/08/22 21:13 Dose: 6 mg Pharmacy Consult (Consult Rx Perform Med Rec) 1 each MISCELLANE ONCE PRN PRN Reason: Consult order Senna (Sennosides 8.6 Mg Tablet) 17.2 mg PO BEDTIME PRN PRN Reason: Constipation Sertraline HCl (Sertraline Hcl 50 Mg Tablet) 50 mg PO DAILY [facility] Last Admin: 05/09/22 08:26 Dose: 50 mg Sodium Bicarbonate (Sodium Bicarbonate 650 Mg Tablet) 650 mg PO BID [facility] Last Admin: 05/09/22 08:26 Dose: 650 mg Sodium Chloride (0.9 % Sodium Chloride Flush 3 Ml Syringe) [facility] Last Admin: 05/09/22 08:27 Dose: 3 ml Trazodone HCl (Trazodone Hcl 50 Mg Tablet) 50 mg PO BEDTIME [facility] Last Admin: 05/08/22 21:14 Dose: 50 mg Home Medications Medication Instructions Recorded Confirmed Last Taken Type aspirin 81 mg tablet,delayed 81 mg PO BEDTIME 06/20/21 05/05/22 01/30/22 History release atorvastatin 80 mg tablet 80 mg PO BEDTIME 06/20/21 05/05/22 01/30/22 History calcium carbonate 600 mg-vitamin 1 tab PO BID 06/20/21 05/05/22 01/30/22 History D3 10 mcg (400 unit) tablet clopidogrel 75 mg tablet 75 mg PO DAILY 06/20/21 05/05/22 01/30/22 History magnesium oxide 400 mg (241.3 mg 400 mg PO BID 06/20/21 05/05/22 01/30/22 History magnesium) tablet sertraline 50 mg tablet 50 mg PO DAILY 06/20/21 05/05/22 01/30/22 History trazodone 50 mg tablet 50 mg PO BEDTIME 06/20/21 05/05/22 01/30/22 History insulin glargine 100 unit/mL (3 18 unit subcut DAILY 03/25/22 05/05/22 Unknown History mL) subcutaneous pen (Lantus Solostar U-100 Insulin) acetaminophen 500 mg tablet 2 tab PO QID PRN fever 05/05/22 05/05/22 Unknown History insulin lispro 100 unit/mL 1 sliding scale dose subcut 05/05/22 05/05/22 Unknown History subcutaneous solution (Humalog USEASDIRECTD U-100 Insulin) ipratropium 0.5 mg-albuterol 3 mg 3 ml inhalation Q4H PRN Wheezing 05/05/22 05/05/22 Unknown History (2.5 mg base)/3 mL nebulization soln Physical Exam Vital Signs: Vital Signs: Last Vital Signs Temp 97.8 F 05/09/22 11:38 Pulse 72 05/09/22 11:38 Resp 18 05/09/22 11:38 BP 135/86 05/09/22 11:38 Pulse Ox 100 05/09/22 11:38 O2 Del Method 05/09/22 11:38 Oxygen Flow Rate 2 05/05/22 15:28 BMI result Body Mass Index 30.5 Results Labs CBC & Chem 7: 05/09/22 05:25 05/09/22 05:25 Labs: Short CBC 05/09/22 Range/Units 05:25 WBC 10.3 (4.8-10.8) X10*3/uL Hgb 11.3 L (12.0-16.0) g/dl Hct 34.8 L (37.0-47.0) % Plt Count 114 L (160-400) X10*3/uL BMP 05/09/22 05:25 Sodium 139 Potassium 4.3 Chloride 102 Carbon Dioxide 24 BUN 80 H Creatinine 3.97 H Calcium 8.1 L Liver Function 05/09/22 Range/Units 05:25 Total Bilirubin 0.5 (0.0-1.0) mg/dL Direct Bilirubin 0.2 (0.0-0.5) mg/dL AST 22 D (5-31) U/L ALT 69 H (0-31) U/L Alkaline Phosphatase 212 H D (39-117) U/L Albumin 3.2 L (3.5-5.0) g/dL Microbiology Microbiology Results: Microbiology 05/05/22 Unknown Urine Catheterized - Straight Catheter Urine Culture - Final Klebsiella pneumoniae
[2022-05-09 15:06] VITALS: BP 137/63; PULSE 67; RESP 18; TEMP 36.2; O2SAT 94
[2022-05-09 15:19] LABS: Appearance Urine TURBID; Color Urine RED; Glucose Urine UA NEG (NEG); Urine Blood 3+ (NEG); Urine Ketones 5 MG/DL (NEG); Urine Protein 3+ MG/DL (NEG-TRACE)
[2022-05-09 15:27] LABS: Leukocyte Esterase Urine 3+ (NEG); Nitrite Urine POS (NEG)
[2022-05-09 15:32] LABS: Bacteria Urine 1+ /LPF; Mucus Urine 1+ /LPF; RBC Urine TNTC /HPF (0); Squamous Epithelial Cell Urine 2+ /LPF; WBC Clumps Urine NOTED
--- NOTE | 2022-05-09 15:46 | P.PNNP_ITS ---
Subjective Subjective Date of Service: 05/09/22 Principal diagnosis: CKD - RENAL CONSULT Interval history: This history was taken in [place] from the patient. Physical Exam Vital Signs: Vital Signs: Last Vital Signs Temp 97.2 F 05/09/22 15:06 Pulse 67 05/09/22 15:06 Resp 18 05/09/22 15:06 BP 137/63 05/09/22 15:06 Pulse Ox 94 05/09/22 15:06 O2 Del Method 05/09/22 15:06 Oxygen Flow Rate 2 05/05/22 15:28 BMI result Body Mass Index 30.5 Const: General: cooperative, comfortable, no acute distress, alert, awake, confusion, ill appearing and other (Restless) Nutritional Appearance: obese Orientation/consciousness: oriented to person and confusion HEENT: Head: Yes normal to inspection, Yes normocephalic and Yes atraumatic Face and sinus: Yes normal facial exam Mouth: Normal oral and palatal mucosa present Teeth and gingiva: dentition normal Eyes: General: appearance normal, both eyes and all related structures Pupils: Equal, round and reactive pupils present Neck: Neck: Yes trachea midline, Yes supple and Yes no JVD Resp: Effort & Inspection: normal respiratory effort, able to speak in complete sentences, decreased respiratory effort and no respiratory distress Auscultation: clear to auscultation bilaterally, no rales, no wheezes and diminished lung sounds Cardio: Jugular venous distension: no JVD Palpation: normal PMI Rate: regular rate Rhythm: regular rhythm Heart sounds: S1 normal heart sound present, S2 normal heart sound present, no click, no gallops and Murmur heart sound present systolic GI: Inspection: No distended and Yes obesity Palpation (GI): Soft to palpation and nontender Auscultation: normal bowel sounds : General: Yes no CVA tenderness Back/Spine/Pelvis: Back: no CVA tenderness Skin: General skin exam: no rashes or lesions noted Neuro: General: oriented to person, moves all extremities and confusion Cranial nerves: Yes Equal, round and reactive pupils present Extrem: General: Yes normal to inspection Psych: Appearance: well kempt Judgement: Poor judgement present (Psych) Objective Data Labs CBC & Chem 7: 05/09/22 05:25 05/10/22 05:33 Labs: Laboratory Results - last 24 hr 05/08/22 05/08/22 05/09/22 15:28 21:04 05:25 WBC 10.3 RBC 4.60 Hgb 11.3 L Hct 34.8 L MCV 75.7 L MCH 24.6 L MCHC 32.5 RDW 14.4 Plt Count 114 L MPV 11.3 Absolute Nucleated RBC 0.000 Nucleated RBC % (auto) 0.0 Sodium Potassium Chloride Carbon Dioxide Anion Gap BUN Creatinine Estim Creat Clear Calc Estimated GFR POC Glucose 250 H 249 H Random Glucose Calcium Total Bilirubin Direct Bilirubin AST ALT Alkaline Phosphatase Total Protein Albumin Urine Color Urine Appearance Urine pH Ur Specific [place] Urine Protein Urine Glucose (UA) Urine Ketones Urine Blood Urine Nitrite Ur Leukocyte Esterase Urine RBC Urine WBC Urine WBC Clumps Ur Squamous Epith Cells Urine Bacteria Urine Mucus 05/09/22 05/09/22 05/09/22 05:25 07:31 11:21 WBC RBC Hgb Hct MCV MCH MCHC RDW Plt Count MPV Absolute Nucleated RBC Nucleated RBC % (auto) Sodium 139 Potassium 4.3 Chloride 102 Carbon Dioxide 24 Anion Gap 17 BUN 80 H Creatinine 3.97 H Estim Creat Clear Calc 11.7 Estimated GFR 11 POC Glucose 113 107 Random Glucose 135 H Calcium 8.1 L Total Bilirubin 0.5 Direct Bilirubin 0.2 AST 22 D ALT 69 H Alkaline Phosphatase 212 H D Total Protein 5.5 L Albumin 3.2 L Urine Color Urine Appearance Urine pH Ur Specific [place] Urine Protein Urine Glucose (UA) Urine Ketones Urine Blood Urine Nitrite Ur Leukocyte Esterase Urine RBC Urine WBC Urine WBC Clumps Ur Squamous Epith Cells Urine Bacteria Urine Mucus 05/09/22 15:00 WBC RBC Hgb Hct MCV MCH MCHC RDW Plt Count MPV Absolute Nucleated RBC Nucleated RBC % (auto) Sodium Potassium Chloride Carbon Dioxide Anion Gap BUN Creatinine Estim Creat Clear Calc Estimated GFR POC Glucose Random Glucose Calcium Total Bilirubin Direct Bilirubin AST ALT Alkaline Phosphatase Total Protein Albumin Urine Color RED A Urine Appearance TURBID Urine pH 7.0 Ur Specific [place] 1.010 Urine Protein 3+ H Urine Glucose (UA) NEG Urine Ketones 5 Urine Blood 3+ H Urine Nitrite POS H Ur Leukocyte Esterase 3+ H Urine RBC TNTC H Urine WBC 76-150 H Urine WBC Clumps NOTED Ur Squamous Epith Cells 2+ Urine Bacteria 1+ Urine Mucus 1+ Microbiology Microbiology Results: Microbiology 05/05/22 Unknown Urine Catheterized - Straight Catheter Urine Culture - Final Klebsiella pneumoniae Procedures Date of Service Date of Service: 05/09/22 Assessment & Plan Assessment and plan (1) Acute worsening of stage 4 chronic kidney disease: Status: Acute (2) Toxic metabolic encephalopathy: Status: Acute (3) UTI (urinary tract infection): Status: Acute (4) Urinary tract infection due to ESBL Klebsiella: Status: Acute Plan 67 yr old woman with advanced CKD Would avoid PICC line and preserve peripheral veins in for possible AVF in future OK to insert central venous access /Triple lumen or [place] 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
[2022-05-09 16:04] LABS: Glucose, Whole Blood 148 mg/dL (60-115)
[2022-05-09 19:01] VITALS: BP 123/56; PULSE 70; RESP 18; TEMP 36.4; O2SAT 99
[2022-05-09 19:43] LABS: Glucose, Whole Blood 219 mg/dL (60-115)
[2022-05-09] MEDS: traZODone HCL 50 MG TABLET PO (20:30)
[2022-05-09] MEDS: Aspirin Enteric Coated 81 MG TABLET.DR PO (20:31)
[2022-05-09] MEDS: Atorvastatin Calcium 80 MG TABLET PO (20:31)
[2022-05-09] MEDS: Insulin Glargine,Hum.rec.anlog 100 UNIT/ML 10 ML VIAL 10 UNIT SUBCUT (20:32)
[2022-05-09] MEDS: Insulin Lispro 100 UNIT/ML 3 ML VIAL SUBCUT (20:32)
[2022-05-09 23:03] VITALS: BP 112/62; PULSE 64; RESP 18; TEMP 36.7; O2SAT 98
[2022-05-09] MEDS: Heparin Sodium,Porcine 5,000 UNIT/ML VIAL 5000 UNIT SUBCUT (23:06)
[2022-05-10 03:24] VITALS: BP 134/67; PULSE 65; RESP 20; TEMP 36.4; O2SAT 94
[2022-05-10 07:11] LABS: Alanine Aminotransferase 53 U/L (0-31); Albumin Level 3.2 g/dL (3.5-5.0); Alkaline Phosphatase 192 U/L (39-117); Anion Gap 19 (12-20); Aspartate Amino Transferase 21 U/L (5-31); Bilirubin Total 0.4 mg/dL (0.0-1.0); Blood Urea Nitrogen 76 mg/dL (9-16); Carbon Dioxide 24 mmol/L (22-29); Chloride 100 mmol/L (96-108); Creatinine Clr Calc Pharmacy 11.4; Estimated Glomerular Filt Rate 11; Glucose Random 98 mg/dL (60-115); Potassium 4.6 mmol/L (3.3-5.1); Sodium 138 mmol/L (135-145); Total Protein 5.4 g/dL (6.5-8.0)
[2022-05-10 07:17] LABS: Glucose, Whole Blood 108 mg/dL (60-115)
[2022-05-10 07:26] VITALS: BP 120/57; PULSE 67; RESP 20; TEMP 35.9; O2SAT 99
[2022-05-10] MEDS: Sertraline HCL 50 MG TABLET PO (09:41)
[2022-05-10] MEDS: carvediloL 6.25 MG TABLET PO (09:41)
[2022-05-10] MEDS: amLODIPine Besylate 10 MG TABLET PO (09:41)
[2022-05-10] MEDS: Clopidogrel Bisulfate 75 MG TABLET PO (09:41)
[2022-05-10] MEDS: Famotidine 20 MG TABLET PO (09:41)
[2022-05-10] MEDS: Furosemide 40 MG TABLET PO (09:41)
[2022-05-10] MEDS: Heparin Sodium,Porcine 5,000 UNIT/ML VIAL 5000 UNIT SUBCUT (09:41)
[2022-05-10] MEDS: Sodium Bicarbonate 650 MG TABLET PO (09:41)
[2022-05-10] MEDS: 0.9 % Sodium Chloride Flush 3 ML SYRINGE IVFLUSH (09:41)
[2022-05-10] MEDS: Magnesium Oxide 400 MG TABLET PO (09:41)
--- NOTE | 2022-05-10 09:56 | P.PNNP_ITS ---
Subjective Subjective Date of Service: 05/11/22 Interval history: This history was taken in Croatian from the patient. She denies fever or chills, nausea or vomiting, and dysuria. Physical Exam Vital Signs: Vital Signs: Last Vital Signs Temp 96.6 F L 05/10/22 07:26 Pulse 67 05/10/22 07:26 Resp 20 05/10/22 07:26 BP 120/57 L 05/10/22 07:26 Pulse Ox 99 05/10/22 07:26 O2 Del Method 05/10/22 07:26 Oxygen Flow Rate 2 05/05/22 15:28 BMI result Body Mass Index 30.5 Const: General: cooperative, comfortable, no acute distress, alert, awake, confusion, ill appearing and other (Restless) Nutritional Appearance: obese Orientation/consciousness: oriented to person and confusion HEENT: Head: Yes normal to inspection, Yes normocephalic and Yes atraumatic Face and sinus: Yes normal facial exam Mouth: Normal oral and palatal mucosa present Teeth and gingiva: dentition normal Eyes: General: appearance normal, both eyes and all related structures Pupils: Equal, round and reactive pupils present Neck: Neck: Yes trachea midline, Yes supple and Yes no JVD Resp: Effort & Inspection: normal respiratory effort, able to speak in complete sentences, decreased respiratory effort and no respiratory distress Auscultation: clear to auscultation bilaterally, no rales, no wheezes and diminished lung sounds Cardio: Jugular venous distension: no JVD Palpation: normal PMI Rate: regular rate Rhythm: regular rhythm Heart sounds: S1 normal heart sound present, S2 normal heart sound present, no click, no gallops and Murmur heart sound present systolic GI: Inspection: No distended and Yes obesity Palpation (GI): Soft to palpation and nontender Auscultation: normal bowel sounds : General: Yes no CVA tenderness Back/Spine/Pelvis: Back: no CVA tenderness Skin: General skin exam: no rashes or lesions noted Neuro: General: oriented to person, moves all extremities and confusion C ranial nerves: Yes Equal, round and reactive pupils present Extrem: General: Yes normal to inspection Psych: Appearance: well kempt Judgement: Poor judgement present (Psych) Objective Data Labs CBC & Chem 7: 05/09/22 05:25 05/10/22 05:33 Labs: Laboratory Results - last 24 hr 05/09/22 05/09/22 05/09/22 11:21 15:00 15:58 Sodium Potassium Chloride Carbon Dioxide Anion Gap BUN Creatinine Estim Creat Clear Calc Estimated GFR POC Glucose 107 148 H Random Glucose Calcium Total Bilirubin AST ALT Alkaline Phosphatase Total Protein Albumin Urine Color RED A Urine Appearance TURBID Urine pH 7.0 Ur Specific [place] 1.010 Urine Protein 3+ H Urine Glucose (UA) NEG Urine Ketones 5 Urine Blood 3+ H Urine Nitrite POS H Ur Leukocyte Esterase 3+ H Urine RBC TNTC H Urine WBC 76-150 H Urine WBC Clumps NOTED Ur Squamous Epith Cells 2+ Urine Bacteria 1+ Urine Mucus 1+ 05/09/22 05/10/22 05/10/22 19:37 05:33 07:13 Sodium 138 Potassium 4.6 Chloride 100 Carbon Dioxide 24 Anion Gap 19 BUN 76 H Creatinine 4.09 H* Estim Creat Clear Calc 11.4 Estimated GFR 11 POC Glucose 219 H 108 Random Glucose 98 Calcium 8.0 L Total Bilirubin 0.4 AST 21 ALT 53 H Alkaline Phosphatase 192 H Total Protein 5.4 L Albumin 3.2 L Urine Color Urine Appearance Urine pH Ur Specific [place] Urine Protein Urine Glucose (UA) Urine Ketones Urine Blood Urine Nitrite Ur Leukocyte Esterase Urine RBC Urine WBC Urine WBC Clumps Ur Squamous Epith Cells Urine Bacteria Urine Mucus Microbiology Microbiology Results: Microbiology 05/05/22 Unknown Urine Catheterized - Straight Catheter Urine Culture - Final Klebsiella pneumoniae Procedures Date of Service Date of Service: 05/10/22 Assessment & Plan Assessment and plan (1) Acute worsening of stage 4 chronic kidney disease: Status: Acute (2) Toxic metabolic encephalopathy: Status: Acute (3) UTI (urinary tract infection): Status: Acute (4) Urinary tract infection due to ESBL Klebsiella: Status: Acute Plan 67 yr old woman with advanced CKD Would avoid PICC line and preserve peripheral veins in for possible AVF in fut ure OK to insert central venous access /Triple lumen or [place] 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
[2022-05-10 11:17] LABS: Glucose, Whole Blood 159 mg/dL (60-115)
--- NOTE | 2022-05-10 11:43 | PM.DS ---
DS: Providers Provider Date of Service: 05/10/22 Date of admission: 05/05/22 21:43 Date of discharge: 05/10/22 Primary care physician: Alexys Avila MD Consults: 05/05/22 21:42 Consult to Cardiology Routine Consulting Provider: Luis Bal Reason for consultation: elevated troponin 05/08/22 10:46 Consult to Infectious Diseases Routine Consulting Provider: Jocy Joya Reason for consultation: uti 05/09/22 14:06 Consult to Nephrology Routine Consulting Provider: Nahum Trevizo Reason for consultation: pt needs midline for 10d for IV ertapenem. IR requires Nephro due to CKD4 DS: Diagnosis Discharge Diagnosis (1) Acute worsening of stage 4 chronic kidney disease: Status: Acute (2) Toxic metabolic encephalopathy: Status: Acute (3) UTI (urinary tract infection): Status: Acute (4) Urinary tract infection due to ESBL Klebsiella: Status: Acute DS: Summary Hospital Course Hospital Course: from admission H+P by Akira Solo, 05/05/22: 67-year-old female with a past medical history of hypertension, hyperlipidemia, diabetes, CKD, CAD cardiomyopathy, dysphagia,? CVA, gastroparesis, irritable bowel syndrome presented to the hospital from the custodial with a chief complaint nausea/confusion.? Per staff patient reportedly more confused than her baseline and also had intermittent episodes of nausea.? Subsequently steroid to the hospital for further evaluation.? Denies having any fevers.? Patient denies any stomach pain, chest pain, lightheadedness or dizziness.? Denies any fever chills.? Denies any cough or sputum production.? Review of all other systems is negative except mentioned above ER course: Per ER team patient appears to be mildly confused, alert and awake, cooperative, noted to have abnormal urinalysis consistent with UTI.? Given ceftriaxone.? Also noted to elevated troponin to 170; discussed with Cardiology Dr. Bal- no heparin drip recommended.? Admitted to the hospital for further management This 67yo F with HTN, HLD, DM2 s/p BKA, mood disorder, CKD4, CAD, cardiomyopathy, dysphagia, CVA, gastroparesis, and IBS was admitted from [facility] with confusion and nausea. Ultimately, she was found to have UTI with Klebsiella pneumoniae that was ESBL-positive. Encephalopathy resolved as the infection was treated. She was treated with 3 days of meropenem in the hospital and discharged back to the SNF on 7 more days of ertapenem 500 mg IM. Serum creatinine settled around 4, which is likely her new baseline and she will need close Nephrology follow-up including a repeat BMP in 1 week Time Spent with Patient Time attestation: Total time spent providing and/or coordinating discharge services: Discharge coordination time: Greater than 30 minutes Quality: Safe Use of Opioids Does Pt have an Active Cancer Diagnosis on the Problem List?: No Quality: Stroke Does the patient have a stroke diagnosis?: No Physical Exam Vital Signs: Vital Signs: Last Vital Signs Temp 96.6 F L 05/10/22 07:26 Pulse 67 05/10/22 07:26 Resp 20 05/10/22 07:26 BP 120/57 L 05/10/22 07:26 Pulse Ox 99 05/10/22 07:26 O2 Del Method 05/10/22 07:26 Oxygen Flow Rate 2 05/05/22 15:28 BMI result Body Mass Index 30.5 Gen: in no acute distress HEENT: sclera anicteric, moist mucus membranes Neck: supple Lungs: clear to auscultation bilaterally Heart: regular rate and rhythm, no murmurs Abd: soft, non-tender, non-distended Ext: no edema, L BKA Skin: warm/well-perfused Neuro: alert, no focal findings Psych: appropriate affect DS: Data Data Completed and Pending Completed studies during hospitalization [Text1]: Laboratory Results WBC 10.3 X10*3/uL (4.8-10.8) 05/09/22 05:25 RBC 4.60 X10*6/uL (4.20-5.50) 05/09/22 05:25 Hgb 11.3 g/dl (12.0-16.0) L 05/09/22 05:25 Hct 34.8 % (37.0-47.0) L 05/09/22 05:25 MCV 75.7 fL (80.0-98.0) L 05/09/22 05:25 MCH 24.6 pg (27.0-33.0) L 05/09/22 05:25 MCHC 32.5 g/dl (31.0-35.0) 05/09/22 05:25 RDW 14.4 % (11.0-16.0) 05/09/22 05:25 Plt Count 114 X10*3/uL (160-400) L 05/09/22 05:25 MPV 11.3 fL (9.4-12.3) 05/09/22 05:25 Immature Gran % (Auto) 0.6 % (0.0-0.4) H 05/05/22 17:00 Neut % (Auto) 85.4 % (45-73) H 05/05/22 17:00 Lymph % (Auto) 8.2 % (20-40) L 05/05/22 17:00 [place] % (Auto) 5.7 % (2-11) 05/05/22 17:00 Eos % (Auto) 0.0 % (0-4) 05/05/22 17:00 Baso % (Auto) 0.1 % (0-2) 05/05/22 17:00 Lymph # (Auto) 1.2 X10*3/uL (1.2-4.9) 05/05/22 17:00 [place] # (Auto) 0.8 X10*3/uL (0.1-1.2) 05/05/22 17:00 Eos # (Auto) 0.0 X10*3/uL (0.0-0.4) 05/05/22 17:00 Baso # (Auto) 0.0 X10*3/uL (0.0-0.2) 05/05/22 17:00 Abs Immat Gran (auto) 0.09 X10*3/uL (0.00-0.03) H 05/05/22 17:00 Absolute Neuts (auto) 12.4 x10*3/uL (2.0-8.3) H 05/05/22 17:00 Absolute Nucleated RBC 0.000 X10*3/uL (0.0-0.012) 05/09/22 05:25 Nucleated RBC % (auto) 0.0 /100WBC (0.0-0.2) 05/09/22 05:25 Sodium 138 mmol/L (135-145) 05/10/22 05:33 Potassium 4.6 mmol/L (3.3-5.1) 05/10/22 05:33 Chloride 100 mmol/L (96-108) 05/10/22 05:33 Carbon Dioxide 24 mmol/L (22-29) 05/10/22 05:33 Anion Gap 19 (12-20) 05/10/22 05:33 BUN 76 mg/dL (9-16) H 05/10/22 05:33 Creatinine 4.09 mg/dL (0.5-1.4) H* 05/10/22 05:33 Estim Creat Clear Calc 11.4 05/10/22 05:33 Estimated GFR 11 05/10/22 05:33 POC Glucose 159 mg/dL (60-115) H 05/10/22 11:13 Random Glucose 98 mg/dL (60-115) 05/10/22 05:33 Calcium 8.0 mg/dL (8.4-10.2) L 05/10/22 05:33 Total Bilirubin 0.4 mg/dL (0.0-1.0) 05/10/22 05:33 Direct Bilirubin 0.2 mg/dL (0.0-0.5) 05/09/22 05:25 AST 21 U/L (5-31) 05/10/22 05:33 ALT 53 U/L (0-31) H 05/10/22 05:33 Alkaline Phosphatase 192 U/L (39-117) H 05/10/22 05:33 Total Creatine Kinase 265 U/L (26-140) H 05/05/22 17:00 Troponin I High Sens 177.4 ng/L (<3.5-17.0) H* 05/05/22 20:39 B-Natriuretic Peptide 294 pg/mL (<100) H 05/05/22 17:00 Total Protein 5.4 g/dL (6.5-8.0) L 05/10/22 05:33 Albumin 3.2 g/dL (3.5-5.0) L 05/10/22 05:33 Urine Color RED A 05/09/22 15:00 Urine Appearance TURBID 05/09/22 15:00 Urine pH 7.0 (5.0-8.0) 05/09/22 15:00 Ur Specific [place] 1.010 (1.005-1.025) 05/09/22 15:00 Urine Protein 3+ MG/DL (NEG-TRACE) H 05/09/22 15:00 Urine Glucose (UA) NEG MG/DL (NEG) 05/09/22 15:00 Urine Ketones 5 MG/DL (NEG) 05/09/22 15:00 Urine Blood 3+ (NEG) H 05/09/22 15:00 Urine Nitrite POS (NEG) H 05/09/22 15:00 Ur Leukocyte Esterase 3+ (NEG) H 05/09/22 15:00 Urine RBC TNTC /HPF (0) H 05/09/22 15:00 Urine WBC 76-150 /HPF (0-4) H 05/09/22 15:00 Urine WBC Clumps NOTED 05/09/22 15:00 Ur Squamous Epith Cells 2+ /LPF 05/09/22 15:00 Urine Bacteria 1+ /LPF 05/09/22 15:00 Urine Mucus 1+ /LPF 05/09/22 15:00 COVID-19 (LUCIUS) Negative (Negative) 05/05/22 17:00 COVID-19 Clin Com See Note 05/05/22 17:00 Hepatitis A IgM Ab Nonreactive (Nonreactive) 05/06/22 06:08 Hep Bs Antigen Negative (Negative) 05/06/22 06:08 Hep Bs Antibody NONREACTIVE (Nonreactive) 05/06/22 06:08 Hep B Core Total Ab Nonreactive (Nonreactive) 05/06/22 06:08 Hepatitis C Ab (EIA) Nonreactive (Nonreactive) 05/06/22 06:08 Impressions Chest X-Ray 05/05/22 22:04 IMPRESSION: Patchy opacity right lung base likely atelectasis or scarring with mild elevation of right hemidiaphragm. Rest of the lungs are clear.. Abdomen Ultrasound 05/06/22 09:45 IMPRESSION: Status post cholecystectomy. No intra or extrahepatic biliary duct dilatation. Visualized portions of the pancreas are unremarkable. The pancreatic tail is obscured by bowel gas. Discharge Plan Discharge Patient Disposition: Xfer SNF Discharge Diagnosis: encephalopathy due to ESBL UTI, acute worsening of CKD4 Referrals: Alexys Avila MD [Primary Care Provider] - 1 Week Nahum Trevizo MD [Physician] - 2 Weeks Discharge Medications: New ertapenem 1 gram recon soln 500 mg IM DAILY Qty: 7 0RF Rx Instructions: 05/11-05/17/22 Continued furosemide [Lasix] 40 mg tablet 40 mg PO BID 90 Days Qty: 180 0RF Rx Instructions: Please call and schedule cardiology appt. carvedilol 6.25 mg tablet 6.25 mg PO BID Qty: 60 5RF Rx Instructions: must administer with a meal/food - Take one tablet twice daily atorvastatin 80 mg tablet 80 mg PO BEDTIME trazodone 50 mg tablet 50 mg PO BEDTIME clopidogrel 75 mg tablet 75 mg PO DAILY aspirin 81 mg tablet,delayed release (DR/EC) 81 mg PO BEDTIME magnesium oxide 400 mg (241.3 mg magnesium) tablet 400 mg PO BID sertraline 50 mg tablet 50 mg PO DAILY calcium carbonate-vitamin D3 600 mg(1,500mg) -400 unit tablet 1 tab PO BID insulin glargine [Lantus Solostar U-100 Insulin] 100 unit/mL (3 mL) insulin pen 18 unit subcut DAILY amlodipine 10 mg Tablet 10 mg PO DAILY 30 Days Qty: 30 0RF Protocol: Hold for SBP< HOLD for SBP < : 90 famotidine 40 mg tablet 40 mg PO BID 30 Days Qty: 60 0RF sodium bicarbonate 650 mg Tablet 650 mg PO BID 30 Days Qty: 60 0RF sodium polystyrene sulfonate Powder 15 g PO DAILY 30 Days Qty: 454 0RF ipratropium-albuterol 0.5 mg-3 mg(2.5 mg base)/3 mL Solution For Nebulization 3 ml INHALATION Q4H PRN (Reason: Wheezing) acetaminophen 500 mg tablet 2 tab PO QID PRN (Reason: fever) insulin lispro [Humalog U-100 Insulin] 100 unit/mL Solution 1 sliding scale dose SUBCUT USEASDIRECTD Rx Instructions: 61-200: 0 UNITS 201- 250: 4U 251-300: 6U 301-350: 8U 351-400:10U 401+: 12U Discontinued dexamethasone [Decadron] 6 mg tablet 6 mg PO DAILY Qty: 4 0RF Discharge Orders: Discharge Order (Routine); Ordered 05/10/22 Ordered By: Candido Noe Diet: Diabetic diet Activity on Discharge: As tolerated Stand Alone Forms: Patient Portal Discharge page Other Ambulatory Orders: Basic Metabolic Panel (Routine) Timeframe: 1 Week Facility: [facility] - Location: Laboratory Ordered By: Candido Noe Care Plan Goals: cure of urinary tract infection, kidney health Health Concerns: encephalopathy due to ESBL UTI, acute worsening of CKD4 Plan of Treatment: ertapenem 500 mg IM daily for 7 days check labs [BMP] in 1 week follow up with Nephrology in 2 weeks Assessment: See Discharge Summary
[2022-05-10] MEDS: Insulin Lispro 100 UNIT/ML 3 ML VIAL SUBCUT (11:56)
[2022-05-10 12:00] VITALS: BP 106/66; PULSE 79; RESP 20; TEMP 35.8; O2SAT 95
[2022-05-10] MEDS: Ertapenem Sodium 0.5 GM in 0.9 % Sodium Chloride 50 ML IV (12:47)
[2022-05-10 12:54] LABS: COVID-19 Test Negative (Negative)
--- NOTE | 2022-05-10 14:58 | MHC.CM.PN ---
pt to be dcd today per gold landa did care out myah julien notifed of dc
[2022-05-10 15:01] VITALS: BP 127/57; PULSE 71; RESP 18; TEMP 36.9; O2SAT 99
[2022-05-10 16:31] LABS: Glucose, Whole Blood 92 mg/dL (60-115)
== END 2022-05-10 18:55 | disposition skilled nursing facility (03) | DRG 689 ==
LOC: HO.ED 21:47 → HO.EDOVER 21:54 → HO.IMC 23:50
PROVIDERS: Hospitalist; Physician Assistant Medical; Admitting Provider Hospitalist; Emergency Provider Emergency Medicine; PCP Internal Medicine; Visit Provider Family Medicine
DX: N39.0 Urinary tract infection, site not specified (principal); G92.8 Other toxic encephalopathy; I13.0 Hypertensive heart and chronic kidney disease with heart failure and stage 1 through stage 4 chronic kidney disease, or unspecified chronic kidney disease; I50.32 Chronic diastolic (congestive) heart failure; Z16.12 Extended spectrum beta lactamase (ESBL) resistance; E78.5 Hyperlipidemia, unspecified; K21.9 Gastro-esophageal reflux disease without esophagitis; Z20.822 Contact with and (suspected) exposure to COVID-19; I25.10 Atherosclerotic heart disease of native coronary artery without angina pectoris; E11.22 Type 2 diabetes mellitus with diabetic chronic kidney disease; E11.43 Type 2 diabetes mellitus with diabetic autonomic (poly)neuropathy; D63.1 Anemia in chronic kidney disease; K31.84 Gastroparesis; B96.20 Unspecified Escherichia coli [E. coli] as the cause of diseases classified elsewhere; E11.65 Type 2 diabetes mellitus with hyperglycemia; I25.2 Old myocardial infarction; Z86.73 Personal history of transient ischemic attack (TIA), and cerebral infarction without residual deficits; F32.A Depression, unspecified; Z89.512 Acquired absence of left leg below knee; Z91.040 Latex allergy status; Z79.4 Long term (current) use of insulin; Z79.02 Long term (current) use of antithrombotics/antiplatelets; Z79.82 Long term (current) use of aspirin; Z79.899 Other long term (current) drug therapy
CPT/HCPCS: 36415; 71045; 76705; 80048; 80053; 80076; 81001; 82550; 82947; 83880; 84484; 85025; 85027; 86704; 86706; 86709; 86803; 87086; 87088; 87186; 87340; 87635; 93005; 93306; 99285; J0696; J1335; J2185; J2405; Q9957

== ENCOUNTER 2022-09-14 16:56 | Inpatient (IN) | payer OTHER, SELFPAY ==
--- NOTE | ~2022-09-14 | XR_ITS ---
EXAMINATION: XR HAND, LEFT CLINICAL INFORMATION: Concern for osteomyelitis. COMPARISON: Left hand 05/08/2014 TECHNIQUE: PA, lateral, and oblique views of the left hand. FINDINGS: Distal phalange of the middle digit is absent. Small vessel calcifications in the soft tissues of the hand and wrist. No air in the soft tissues. No bone destruction or abnormal periosteal reaction. No radiographic evidence for osteomyelitis. Mild degenerative change of the DIP joints. XR/XR hand LT min 3V IMPRESSION: 1. No radiographic evidence for osteomyelitis. 2. 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
--- NOTE | ~2022-09-14 | US_ITS ---
EXAMINATION: NONINVASIVE ASSESSMENT OF THE ARTERIES OF BOTH UPPER EXTREMITIES Adalberto Patricia MD CLINICAL INFORMATION: Peripheral vascular disease TECHNIQUE: Duplex Doppler techniques was utilized and a velocity measurements and color flow Doppler imaging was obtained in the subclavian arteries, axillary arteries, brachial arteries as well as the radial and ulnar arteries. The study was performed at rest. COMPARISON: CT chest 03/17/2022 FINDINGS: Measurements reported below are in cm per second. Minimal plaque is present. Multiphasic flow is present throughout both upper extremities. Right Arm: Subclavian proximal: 161 Subclavian mid: 107 Subclavian distal: 77 Axillary: 72 Brachial proximal: 80 Brachial mid: 91 Brachial distal: 63 Radial: 85 Ulnar: 66 Left Arm: Subclavian proximal: 171 Subclavian mid: 96 Subclavian distal: 76 Axillary: 92 Brachial proximal: 71 Brachial mid: 98 Brachial distal: 90 Radial: 106 Ulnar: 83 US/US arterial duplex UE BI IMPRESSION: There is no evidence of any hemodynamically significant upper extremity arterial disease by waveform or duplex Doppler criteria at rest.
--- NOTE | ~2022-09-14 | FL_ITS ---
EXAMINATION: XR FLUOROSCOPY WITH IMAGES CLINICAL INFORMATION: Left index finger amputation COMPARISON: 09/14/2022 TECHNIQUE: Fluoroscopy Supervised By: Dr. Toya Panchal. Fluoroscopy Time: 2.36 seconds. Cumulative Dose: 0.058 mGy. DAP: 0.0035 Gycm2. Images: 1. FINDINGS: On this single image there is absence of the third digit distal phalanx. This corresponds to the appearance on the previous radiograph. FL/FL guidance in OR IMPRESSION: Single fluoroscopic image showing absence of the distal phalanx of the third digit, as seen on prior radiograph. Please refer to procedural report for further information.
[2022-09-14 17:05] VITALS: BP 138/68; BP 159/92; PULSE 101; PULSE 102; RESP 22; TEMP 38; O2SAT 92; O2SAT 96; BMI 37.3
--- NOTE | 2022-09-14 17:13 | ED_ITS ---
HPI - Extremity Problem General Chief complaint: Extremity Injury, Upper Stated complaint: PAIN L INDEX FINGER PER EMS Time Seen by Provider: 09/14/22 17:04 Source: patient, EMS and old records reviewed History of Present Illness HPI Narrative: Patient presenting via EMS from [facility] facility secondary to infection of the left index finger. 67-year-old female with a past medical history of hypertension, hyperlipidemia, diabetes, CKD, CAD cardiomyopathy, dysphagia,? CVA, gastroparesis, irritable bowel syndrome EMS states family came to visit and found that she had a black area at the tip of her index finger which appears to have had a prior amputation. She also has redness extending throughout the rest of her index finger and into the dorsum of her hand. She has a history of diabetes as well as congestive heart failure and chronic stage 3 kidney disease. She states she is typically on oxygen at the halfway. Patient complains of pain mostly in her finger and hand. She states it has been going on for the past 2 days. Denies fevers and chills. No other new acute complaints. Related Data Home Medications Medication Instructions Recorded Confirmed aspirin 81 mg tablet,delayed 81 mg PO BEDTIME 06/20/21 05/05/22 release atorvastatin 80 mg tablet 80 mg PO BEDTIME 06/20/21 05/05/22 calcium carbonate 600 mg-vitamin 1 tab PO BID 06/20/21 05/05/22 D3 10 mcg (400 unit) tablet clopidogrel 75 mg tablet 75 mg PO DAILY 06/20/21 05/05/22 magnesium oxide 400 mg (241.3 mg 400 mg PO BID 06/20/21 05/05/22 magnesium) tablet sertraline 50 mg tablet 50 mg PO DAILY 06/20/21 05/05/22 trazodone 50 mg tablet 50 mg PO BEDTIME 06/20/21 05/05/22 insulin glargine 100 unit/mL (3 18 unit subcut DAILY 03/25/22 05/05/22 mL) subcutaneous pen (Lantus Solostar U-100 Insulin) acetaminophen 500 mg tablet 2 tab PO QID PRN fever 05/05/22 05/05/22 insulin lispro 100 unit/mL 1 sliding scale dose subcut 05/05/22 05/05/22 subcutaneous solution (Humalog USEASDIRECTD U-100 Insulin) ipratropium 0.5 mg-albuterol 3 mg 3 ml inhalation Q4H PRN Wheezing 05/05/22 05/05/22 (2.5 mg base)/3 mL nebulization soln Previous Rx's Medication Instructions Recorded furosemide 40 mg tablet (Lasix) 40 mg PO BID 90 days #180 tabs 02/18/22 carvedilol 6.25 mg tablet 6.25 mg PO BID #60 tabs 02/21/22 amlodipine 10 mg tablet 10 mg PO DAILY 30 days #30 tabs 03/03/22 famotidine 40 mg tablet 40 mg PO BID 30 days #60 tabs 03/03/22 sodium bicarbonate 650 mg tablet 650 mg PO BID 30 days #60 tabs 03/03/22 sodium polystyrene sulfonate 15 g PO DAILY 30 days #454 grams 03/03/22 ertapenem 1 gram solution for 500 mg IM DAILY #7 ea 05/10/22 injection Allergies Allergy/AdvReac Type Severity Reaction Status Date / Time latex [LATEX] Allergy Intermediate ITCHY Verified 06/29/21 13:08 Review of Systems Constitutional: Comments: No fevers. Generalized pain. Cardiovascular: Comments: Denies chest pain Respiratory: Comments: No acute increase in shortness of breath Gastrointestinal: Comments: No abdominal pain or nausea vomiting diarrhea Musculoskeletal: Comments: Left index finger pain Integumentary/Breasts: Comments: Complains of black area in her left index finger with redness throughout her hand Neurologic: Comments: Denies focal weakness PMFSH Past Medical History Medical History (Updated 09/14/22 @ 21:55 by Anuj Byrd MD) Acute on chronic renal failure Acute worsening of stage 4 chronic kidney disease Anemia Blister of finger without infection Cholecystectomy planned Chronic heart failure with preserved ejection fraction (HFpEF) CKD (chronic kidney disease) CKD (chronic kidney disease) stage 3, GFR 30-59 ml/min CKD (chronic kidney disease) stage 4, GFR 15-29 ml/min CKD (chronic kidney disease), stage IV Congestive heart failure Diabetes Diabetes mellitus Elevated d-dimer Elevated troponin Essential hypertension Gastroparesis Generalized weakness GERD (gastroesophageal reflux disease) Hand pain Hernia HLD (hyperlipidemia) HTN (hypertension) Hypomagnesemia Irritable bowel syndrome with diarrhea Lightheadedness Low blood pressure Non-ST elevated myocardial infarction Nonischemic cardiomyopathy Other and unspecified hyperlipidemia Pharyngoesophageal dysphagia Type 2 diabetes mellitus with unspecified complications UTI (urinary tract infection) Surgical History H/O: hysterectomy History of esophagogastroduodenoscopy (EGD) Hx of colonoscopy Hx of eye surgery Family History Family History Father Lung cancer Mother Diabetes HTN (hypertension) Heart disease Sister Diabetes Heart disease Brother Heart disease Son Diabetes Daughter Diabetes Social History Social History Household Members: Unknown / Unable to assess Household Members Other:: SNF Housing: Assisted Living Facility Do you presently have visiting nurse or other home services: No Unable to assess alcohol history related to: Unknown Alcohol intake: never Patient Tobacco Use Status: Never used Tobacco Second Hand Smoke Exposure: No Advance Directives: Yes Advance Directives on File: Yes Advance Directives Date on File: 02/02/22 service: No Current occupational status: disabled Physical Exam Vital Signs: Vital Signs: Last Vital Signs Temp 99.7 F 09/14/22 22:27 Pulse 90 09/14/22 22:27 Resp 20 09/14/22 22:27 BP 132/59 L 09/14/22 22:27 Pulse Ox 94 09/14/22 22:27 O2 Del Method 09/14/22 22:27 O2 Flow Rate 2 09/14/22 22:27 Oxygen Flow Rate 2 09/14/22 17:05 BMI result Body Mass Index 37.3 Const: Other: Awake and alert. Appears mildly uncomfortable. Slightly distant. Resp: Other: Clear and equal bilaterally without wheezes rales or rhonchi but it is diminished throughout Cardio: Other: Regular rate and rhythm without murmurs rubs or gallops GI: Other: Abdomen is soft nontender nondistended Skin: Other: Left index finger with necrotic area at the tip of the finger. Erythema and warmth throughout her index finger and into the dorsum of her hand Neuro: Other: Nonfocal neuro exam Extrem: Other: Left index finger as described above. She appears to have had a prior amputation of the distal phalanx Course Course Course Narrative: Cellulitis with necrosis left index finger. Osteomyelitis. Patient with history of congestive heart failure and chronic kidney disease. Temperature is a 100.4 degrees. Will treat with small fluid boluses. Blood pressure is currently stable without evidence of sepsis at this time. Will treat with broad-spectrum antibiotics for obvious cellulitis with necrotic tissue. 19:11. First troponin is 335. This is higher than her baseline which has been approximately 160-170 in the past. EKG shows sinus rhythm with a left bundle-branch block without morphologic change from prior EKG. Aspirin ordered. Repeat troponin to assess for change in his overall level is pending. 21:51. Third troponin is 405. She is trending upwards. On re-evaluation of patient she confirm she has no chest pain today. She does state she had some pain last night which she described as sharp and radiating to both shoulders. She does have some tenderness on palpation on the right parasternal border which she states as a similar last night discomfort. No pain without palpation however. It is unclear if last night's pain was cardiac in etiology but she does have troponins that are slowly trending upwards. She has already been treated with aspirin. Repeat EKG shows no morphologic changes compared to prior EKG today and EKGs from the past. Will start heparin and hospitalize 23:42. Hemoglobin is lower now than on arrival. It is just under 7. Rectal exam shows brown stool. Awaiting stool guaiac testing Medications Administered Generic Name Dose Route Start Last Admin Trade Name Freq PRN Reason Stop Dose Admin Heparin Sodium/Sodium Chloride 25,000 unit in 250 mls @ 0 mls/hr 09/14/22 22:30 09/14/22 22:50 Heparin Sodium,Porcine/1/2ns IVCONT 12 units/kg/hr .Q0M MATTY 9.73 mls/hr Administration Protocol Per Protocol Discontinued Medications Generic Name Dose Route Start Last Admin Trade Name Freq PRN Reason Stop Dose Admin Acetaminophen 650 mg 09/14/22 21:21 09/14/22 21:26 Acetaminophen 325 Mg Tablet PO 09/14/22 21:22 650 mg ONCE ONE Administration Aspirin 324 mg 09/14/22 19:10 09/14/22 19:24 Aspirin 81 Mg Tab.Chew PO 09/14/22 19:11 324 mg ONCE ONE Administration Sodium Chloride 500 mls @ 500 mls/hr 09/14/22 17:15 09/14/22 19:25 Ns IV 09/14/22 18:14 Infused .Q1H MATTY Infusion Piperacillin Sod/Tazobactam 50 mls @ 100 mls/hr 09/14/22 17:09 09/14/22 18:45 Sod 3.375 gm/ Sodium Chloride IV 09/14/22 17:38 Infused ONCE ONE Infusion Vancomycin HCl 1,500 mg/ 500 mls @ 333.333 mls/hr 09/14/22 17:09 09/14/22 18:20 Sodium Chloride IV 09/14/22 18:38 Not Given ONCE ONE Vancomycin HCl 1,500 mg/ 500 mls @ 333.333 mls/hr 09/14/22 19:00 09/14/22 21:01 Sodium Chloride IV 09/14/22 20:29 Infused ONCE ONE Infusion Sodium Chloride 500 mls @ 500 mls/hr 09/14/22 21:30 09/14/22 22:48 Ns IV 09/14/22 22:29 Infused .Q1H MATTY Infusion Medical Decision Making Lab Data Result Diagrams: 09/14/22 22:33 09/14/22 17:37 Labs: Lab Results 09/14/22 09/14/22 09/14/22 Range/Units 17:37 17:37 17:37 WBC 15.7 H (4.8-10.8) X10*3/uL RBC 3.01 L D (4.20-5.50) X10*6/uL Hgb 7.8 L D (12.0-16.0) g/dl Hct 24.1 L D (37.0-47.0) % MCV 80.1 (80.0-98.0) fL MCH 25.9 L (27.0-33.0) pg MCHC 32.4 (31.0-35.0) g/dl RDW 13.7 (11.0-16.0) % Plt Count 218 D (160-400) X10*3/uL MPV 10.6 (9.4-12.3) fL Immature Gran % (Auto) 0.6 H (0.0-0.4) % Neut % (Auto) 78.1 H (45-73) % Lymph % (Auto) 13.5 L (20-40) % [place] % (Auto) 7.1 (2-11) % Eos % (Auto) 0.6 (0-4) % Baso % (Auto) 0.1 (0-2) % Lymph # (Auto) 2.1 (1.2-4.9) X10*3/uL [place] # (Auto) 1.1 (0.1-1.2) X10*3/uL Eos # (Auto) 0.1 (0.0-0.4) X10*3/uL Baso # (Auto) 0.0 (0.0-0.2) X10*3/uL Abs Immat Gran (auto) 0.10 H (0.00-0.03) X10*3/uL Absolute Neuts (auto) 12.3 H (2.0-8.3) x10*3/uL Absolute Nucleated RBC 0.000 (0.0-0.012) X10*3/uL Nucleated RBC % (auto) 0.0 (0.0-0.2) /100WBC PT (10.0-13.1) SEC INR (0.9-1.1) aPTT Heparin Protocol (53-77.9) SEC Sodium 140 (135-145) mmol/L Potassium 4.7 (3.3-5.1) mmol/L Chloride 104 (96-108) mmol/L Carbon Dioxide 23 (22-29) mmol/L Anion Gap 18 (12-20) BUN 71 H (9-16) mg/dL Creatinine 3.87 H (0.5-1.4) mg/dL Estim Creat Clear Calc 12.3 Estimated GFR 12 Random Glucose 133 H (60-115) mg/dL Lactic Acid 1.1 (0.5-2.0) mmol/L Calcium 8.7 D (8.4-10.2) mg/dL Total Bilirubin 0.5 (0.0-1.0) mg/dL AST 10 (5-31) U/L ALT 7 (0-31) U/L Alkaline Phosphatase 138 H (39-117) U/L Troponin I High Sens (<3.5-17.0) ng/L Total Protein 7.1 (6.5-8.0) g/dL Albumin 3.7 (3.5-5.0) g/dL Influenza Type A (PCR) (Negative) Influenza Type B (PCR) (Negative) RSV RNA Qual (PCR) (Negative) SARS-CoV-2 RNA (RT-PCR) (Negative) 09/14/22 09/14/22 09/14/22 Range/Units 17:37 17:37 18:58 WBC (4.8-10.8) X10*3/uL RBC (4.20-5.50) X10*6/uL Hgb (12.0-16.0) g/dl Hct (37.0-47.0) % MCV (80.0-98.0) fL MCH (27.0-33.0) pg MCHC (31.0-35.0) g/dl RDW (11.0-16.0) % Plt Count (160-400) X10*3/uL MPV (9.4-12.3) fL Immature Gran % (Auto) (0.0-0.4) % Neut % (Auto) (45-73) % Lymph % (Auto) (20-40) % [place] % (Auto) (2-11) % Eos % (Auto) (0-4) % Baso % (Auto) (0-2) % Lymph # (Auto) (1.2-4.9) X10*3/uL [place] # (Auto) (0.1-1.2) X10*3/uL Eos # (Auto) (0.0-0.4) X10*3/uL Baso # (Auto) (0.0-0.2) X10*3/uL Abs Immat Gran (auto) (0.00-0.03) X10*3/uL Absolute Neuts (auto) (2.0-8.3) x10*3/uL Absolute Nucleated RBC (0.0-0.012) X10*3/uL Nucleated RBC % (auto) (0.0-0.2) /100WBC PT (10.0-13.1) SEC INR (0.9-1.1) aPTT Heparin Protocol (53-77.9) SEC Sodium (135-145) mmol/L Potassium (3.3-5.1) mmol/L Chloride (96-108) mmol/L Carbon Dioxide (22-29) mmol/L Anion Gap (12-20) BUN (9-16) mg/dL Creatinine (0.5-1.4) mg/dL Estim Creat Clear Calc Estimated GFR Random Glucose (60-115) mg/dL Lactic Acid (0.5-2.0) mmol/L Calcium (8.4-10.2) mg/dL Total Bilirubin (0.0-1.0) mg/dL AST (5-31) U/L ALT (0-31) U/L Alkaline Phosphatase (39-117) U/L Troponin I High Sens 335.5 H* D 353.1 H* (<3.5-17.0) ng/L Total Protein (6.5-8.0) g/dL Albumin (3.5-5.0) g/dL Influenza Type A (PCR) NEGATIVE (Negative) Influenza Type B (PCR) NEGATIVE (Negative) RSV RNA Qual (PCR) NEGATIVE (Negative) SARS-CoV-2 RNA (RT-PCR) NEGATIVE (Negative) 09/14/22 09/14/22 09/14/22 Range/Units 21:06 22:33 22:33 WBC 11.8 H (4.8-10.8) X10*3/uL RBC 2.65 L (4.20-5.50) X10*6/uL Hgb 6.9 L* (12.0-16.0) g/dl Hct 21.4 L (37.0-47.0) % MCV 80.8 (80.0-98.0) fL MCH 26.0 L (27.0-33.0) pg MCHC 32.2 (31.0-35.0) g/dl RDW 13.7 (11.0-16.0) % Plt Count 166 (160-400) X10*3/uL MPV 9.9 (9.4-12.3) fL Immature Gran % (Auto) (0.0-0.4) % Neut % (Auto) (45-73) % Lymph % (Auto) (20-40) % [place] % (Auto) (2-11) % Eos % (Auto) (0-4) % Baso % (Auto) (0-2) % Lymph # (Auto) (1.2-4.9) X10*3/uL [place] # (Auto) (0.1-1.2) X10*3/uL Eos # (Auto) (0.0-0.4) X10*3/uL Baso # (Auto) (0.0-0.2) X10*3/uL Abs Immat Gran (auto) (0.00-0.03) X10*3/uL Absolute Neuts (auto) (2.0-8.3) x10*3/uL Absolute Nucleated RBC 0.000 (0.0-0.012) X10*3/uL Nucleated RBC % (auto) 0.0 (0.0-0.2) /100WBC PT 13.1 (10.0-13.1) SEC INR 1.1 (0.9-1.1) aPTT Heparin Protocol 28.1 L (53-77.9) SEC Sodium (135-145) mmol/L Potassium (3.3-5.1) mmol/L Chloride (96-108) mmol/L Carbon Dioxide (22-29) mmol/L Anion Gap (12-20) BUN (9-16) mg/dL Creatinine (0.5-1.4) mg/dL Estim Creat Clear Calc Estimated GFR Random Glucose (60-115) mg/dL Lactic Acid (0.5-2.0) mmol/L Calcium (8.4-10.2) mg/dL Total Bilirubin (0.0-1.0) mg/dL AST (5-31) U/L ALT (0-31) U/L Alkaline Phosphatase (39-117) U/L Troponin I High Sens 405.1 H* (<3.5-17.0) ng/L Total Protein (6.5-8.0) g/dL Albumin (3.5-5.0) g/dL Influenza Type A (PCR) (Negative) Influenza Type B (PCR) (Negative) RSV RNA Qual (PCR) (Negative) SARS-CoV-2 RNA (RT-PCR) (Negative) Discharge Plan Discharge Clinical Impression: Cellulitis of hand, left, Non-ST elevated myocardial infarction, Chronic kidney failure Patient Disposition: Admitted As Inpatient
[2022-09-14 17:46] LABS: MANUAL DIFF FLAG NO
--- NOTE | 2022-09-14 17:50 | PC.NURSE ---
20g IV placed in the right AC by this RN. Pt has low grade fever and is reporting pain in her left index finger.
[2022-09-14 17:59] LABS: Basophils Percent Auto 0.1 % (0-2); Eosinophils Absolute Auto 0.1 X10*3/uL (0.0-0.4); Eosinophils Percent Auto 0.6 % (0-4); Hematocrit 24.1 % (37.0-47.0); Hemoglobin 7.8 g/dl (12.0-16.0); Imm Gran Pct Auto 0.6 % (0.0-0.4); Lymphocytes Absolute Auto 2.1 X10*3/uL (1.2-4.9); Lymphocytes Percent Auto 13.5 % (20-40); Mean Corpuscular HGB Conc 32.4 g/dl (31.0-35.0); Mean Corpuscular Hemoglobin 25.9 pg (27.0-33.0); Mean Corpuscular Volume 80.1 fL (80.0-98.0); Mean Platelet Volume 10.6 fL (9.4-12.3); Monocytes Absolute Auto 1.1 X10*3/uL (0.1-1.2); Monocytes Percent Auto 7.1 % (2-11); Neutrophils Absolute Auto 12.3 x10*3/uL (2.0-8.3); Neutrophils Percent Auto 78.1 % (45-73); Platelet Count 218 X10*3/uL (160-400); Red Blood Count 3.01 X10*6/uL (4.20-5.50); Red Cell Distribution Width 13.7 % (11.0-16.0); White Blood Count 15.7 X10*3/uL (4.8-10.8)
[2022-09-14 18:05] LABS: Lactic Acid 1.1 mmol/L (0.5-2.0)
[2022-09-14 18:07] LABS: Alanine Aminotransferase 7 U/L (0-31); Albumin Level 3.7 g/dL (3.5-5.0); Alkaline Phosphatase 138 U/L (39-117); Anion Gap 18 (12-20); Aspartate Amino Transferase 10 U/L (5-31); Bilirubin Total 0.5 mg/dL (0.0-1.0); Blood Urea Nitrogen 71 mg/dL (9-16); Calcium 8.7 mg/dL (8.4-10.2); Carbon Dioxide 23 mmol/L (22-29); Chloride 104 mmol/L (96-108); Creatinine Clr Calc Pharmacy 12.3; Estimated Glomerular Filt Rate 12; Glucose Random 133 mg/dL (60-115); Potassium 4.7 mmol/L (3.3-5.1); Sodium 140 mmol/L (135-145); Total Protein 7.1 g/dL (6.5-8.0)
[2022-09-14] MEDS: Piperacillin Sodium/Tazobactam 3.375 GM in 0.9 % Sodium Chloride 50 ML IV (18:13)
[2022-09-14] MEDS: 0.9 % Sodium Chloride 500 ML IV ×2 (18:14→21:26)
--- NOTE | 2022-09-14 18:15 | PC.NURSE ---
antibiotics have been pushed back due to difficulty getting cultures
[2022-09-14 18:22] LABS: Troponin-I High Sensitivity 335.5 ng/L (<3.5-17.0)
--- NOTE | 2022-09-14 18:23 | ECG_ITS ---
Test Reason : HIGH TROP Blood Pressure : / mmHG Vent. Rate : 099 BPM Atrial Rate : 099 BPM P-R Int : 142 ms QRS Dur : 124 ms QT Int : 396 ms P-R-T Axes : 057 009 206 degrees QTc Int : 508 ms Sinus rhythm with occasional Premature ventricular complexes Left bundle branch block Abnormal ECG When compared with ECG of 05-MAY-2022 19:17, Premature ventricular complexes are now Present Vent. rate has increased BY 33 BPM Referred By: Anuj Byrd Electronically Signed By:MYESHA FREY
[2022-09-14 18:29] LABS: Influenza A PCR NEGATIVE (Negative); Influenza B PCR NEGATIVE (Negative); Resp Syncy Virus RNA Qual PCR NEGATIVE (Negative); SARS COV2 PCR INHOUSE NEGATIVE (Negative)
[2022-09-14 19:04] VITALS: PULSE 102; RESP 20; TEMP 37.8; O2SAT 93
[2022-09-14] MEDS: Aspirin 81 MG TAB.CHEW 324 MG PO (19:24)
[2022-09-14] MEDS: vancomycin HCL 1,500 MG in 0.9 % Sodium Chloride 500 ML 333.33 MG IV (19:25)
[2022-09-14 19:28] LABS: Troponin-I High Sensitivity 353.1 ng/L (<3.5-17.0)
[2022-09-14 19:44] VITALS: BP 135/84; PULSE 101; RESP 20; TEMP 38.3; O2SAT 97
--- NOTE | 2022-09-14 20:03 | PC.NURSE ---
spoke with pt daughter Adelita on the phone ([phone]), would like to talk to case management regarding her mothers care.
[2022-09-14 21:01] VITALS: BP 121/40; PULSE 93; RESP 20; TEMP 37.8; O2SAT 97
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
[2022-09-14] MEDS: Acetaminophen 325 MG TABLET 650 MG PO (21:26)
--- NOTE | 2022-09-14 21:31 | PC.NURSE ---
Pt daughter in room, tearful. This RN spoke with daughter and explained the care her mother was receiving
--- NOTE | 2022-09-14 21:46 | ECG_ITS ---
Test Reason : ELEVATED TROP Blood Pressure : / mmHG Vent. Rate : 090 BPM Atrial Rate : 090 BPM P-R Int : 152 ms QRS Dur : 124 ms QT Int : 424 ms P-R-T Axes : 047 -07 194 degrees QTc Int : 518 ms Sinus rhythm with frequent Premature ventricular complexes Left bundle branch block Abnormal ECG When compared with ECG of 14-SEP-2022 18:52, No significant changes seen Referred By: Anuj Byrd Electronically Signed By:MYESHA RFEY
[2022-09-14 21:47] LABS: Troponin-I High Sensitivity 405.1 ng/L (<3.5-17.0)
--- NOTE | 2022-09-14 22:23 | PC.NURSE ---
MD aware of low hemoglobin
[2022-09-14 22:27] VITALS: BP 132/59; PULSE 90; RESP 20; TEMP 37.6; O2SAT 94
[2022-09-14 22:38] LABS: Hematocrit 21.4 % (37.0-47.0); Mean Corpuscular HGB Conc 32.2 g/dl (31.0-35.0); Mean Corpuscular Volume 80.8 fL (80.0-98.0); Mean Platelet Volume 9.9 fL (9.4-12.3); Platelet Count 166 X10*3/uL (160-400); Red Blood Count 2.65 X10*6/uL (4.20-5.50); Red Cell Distribution Width 13.7 % (11.0-16.0); White Blood Count 11.8 X10*3/uL (4.8-10.8)
[2022-09-14 22:43] LABS: INTERNATIONAL NORM RATIO 1.1 (0.9-1.1); Prothrombin Time 13.1 SEC (10.0-13.1)
[2022-09-14 22:46] LABS: PTT Heparin Drip 28.1 SEC (53-77.9)
[2022-09-14 22:49] LABS: Hemoglobin 6.9 g/dl (12.0-16.0)
[2022-09-14] MEDS: Heparin Sodium,Porcine/1/2NS 25,000 UNIT/250 ML IV.SOLN 9.73 UNIT IVCONT (22:50)
[2022-09-14 23:45] VITALS: BP 133/42; PULSE 88; RESP 18; TEMP 37.7; O2SAT 94
[2022-09-14 23:49] LABS: OBS Int Ctl Valid YES; OBS1 NEGATIVE (NEGATIVE)
[2022-09-14] MEDS: Pantoprazole Sodium 40 MG/10 ML VIAL 80 MG IVPUSH (23:57)
[2022-09-15] VITALS (10 sets, daily range): BP systolic 110–156; BP diastolic 48–94; PULSE 74–100; RESP 16–23; TEMP 36.7–37.6; O2SAT 92–96
--- NOTE | 2022-09-15 00:28 | MHC.EDTECH ---
Pt hooked up to [place] system and is incontinent. Urine sample needed but unable to obtain at the this time. Andrews Dumont made aware. Pt repositioned in bed. Call peck placed in reach and light dimmed
--- NOTE | 2022-09-15 00:40 | P.HPHOSP_ITS ---
History of Present Illness Date of Service: 09/15/22 Chief Complaint: feeling sick 67-year-old female Burkinan-speaking only, history is obtained with the help of an home care giver with past medical history of diabetes, history of heart failure, CVA, chronic anemia, CKD, HLD, HTN among others, presents to the hospital after her daughter called the ambulance because she noticed her finger appeared infected and necrotic. 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 Patient herself feels very sick, she reports the night before she felt out of it , and had vomiting. when I ask her about her fingers, patient denies any pain, reports that she noticed the necrotic tissue 2 days ago, She reports no arm pain, denies any cough, no diarrhea or constipation, no urinary symptoms and no lower extremity edema. Patient denies any chest pain, no palpitations. On arrival to the ED patient hemodynamically stable, also had a fever of 100.4, respiratory rate of 22, heart rate of 102. Labs are significant for WBC count of 15.7, hemoglobin of 7.8, hematocrit of 2 any 4.1, normal MCV, creatinine of 3.87 which is around her baseline, troponin of 335, increased to 405, UA positive Arterial duplex negative of the upper extremities hand x-ray x-ray shows no radiographic evidence of osteomyelitis Review of Systems Review of Systems: Yes all other systems are reviewed and are negative [facility] Medical History Acute on chronic renal failure Acute worsening of stage 4 chronic kidney disease Anemia Blister of finger without infection Cholecystectomy planned Chronic heart failure with preserved ejection fraction (HFpEF) CKD (chronic kidney disease) CKD (chronic kidney disease) stage 3, GFR 30-59 ml/min CKD (chronic kidney disease) stage 4, GFR 15-29 ml/min CKD (chronic kidney disease), stage IV Congestive heart failure Diabetes Diabetes mellitus Elevated d-dimer Elevated troponin Essential hypertension Gastroparesis Generalized weakness GERD (gastroesophageal reflux disease) Hand pain Hernia HLD (hyperlipidemia) HTN (hypertension) Hypomagnesemia Irritable bowel syndrome with diarrhea Lightheadedness Low blood pressure Non-ST elevated myocardial infarction Nonischemic cardiomyopathy Other and unspecified hyperlipidemia Pharyngoesophageal dysphagia Type 2 diabetes mellitus with unspecified complications UTI (urinary tract infection) Family History Father Lung cancer Mother Diabetes HTN (hypertension) Heart disease Sister Diabetes Heart disease Brother Heart disease Son Diabetes Daughter Diabetes Surgical History H/O: hysterectomy History of esophagogastroduodenoscopy (EGD) Hx of colonoscopy Hx of eye surgery Social History Household Members: Unknown / Unable to assess Household Members Other:: SNF Housing: Assisted Living Facility Do you presently have visiting nurse or other home services: No Unable to assess alcohol history related to: Unknown Alcohol intake: never Patient Tobacco Use Status: Never used Tobacco Smoked in Last 30 Days: No Second Hand Smoke Exposure: No Use of substances other than those prescribed or required for medical reasons: No Advance Directives: Yes Advance Directives on File: Yes Advance Directives Date on File: 02/02/22 service: No Current occupational status: disabled Meds Allergies Allergy/AdvReac Type Severity Reaction Status Date / Time latex [LATEX] Allergy Intermediate ITCHY Verified 06/29/21 13:08 Active Medications: Current Medications Heparin Sodium (Porcine) (Heparin Sodium,Porcine 5,000 Unit/Ml Vial) 3,200 unit 40 unit/kg (3200 unit) IVPUSH PROTOCOL BOLUS PRN; Protocol PRN Reason: 40 unit/kg - Heparin Protocol Heparin Sodium (Porcine) (Heparin Sodium,Porcine 5,000 Unit/Ml Vial) 6,500 unit 80 unit/kg (6500 unit) IVPUSH PROTOCOL BOLUS PRN; Protocol PRN Reason: 80 unit/kg - Heparin Protocol Heparin Sodium/Sodium Chloride (Heparin Sodium,Porcine/1/2ns) 25,000 unit in 250 mls @ 0 mls/hr IVCONT .Q0M MATTY; Protocol Last Admin: 09/14/22 22:50 Dose: 12 units/kg/hr, 9.73 mls/hr Home Medications Medication Instructions Recorded Confirmed Last Taken Type aspirin 81 mg tablet,delayed 81 mg PO BEDTIME 06/20/21 09/15/22 09/14/22 History release atorvastatin 80 mg tablet 80 mg PO BEDTIME 06/20/21 09/15/22 09/14/22 History calcium carbonate 600 mg-vitamin 1 tab PO BID 06/20/21 09/15/22 09/14/22 History D3 10 mcg (400 unit) tablet clopidogrel 75 mg tablet 75 mg PO DAILY 06/20/21 09/15/22 09/14/22 History magnesium oxide 400 mg (241.3 mg 400 mg PO BID 06/20/21 09/15/22 09/14/22 History magnesium) tablet sertraline 50 mg tablet 50 mg PO DAILY 06/20/21 09/15/22 09/14/22 History trazodone 50 mg tablet 50 mg PO BEDTIME 06/20/21 09/15/22 09/14/22 History insulin glargine 100 unit/mL (3 18 unit subcut DAILY 03/25/22 09/15/22 09/14/22 History mL) subcutaneous pen (Lantus Solostar U-100 Insulin) acetaminophen 500 mg tablet 2 tab PO QID PRN fever 05/05/22 09/15/22 Unknown History insulin lispro 100 unit/mL 1 sliding scale dose subcut 05/05/22 09/15/22 Unknown History subcutaneous solution (Humalog USEASDIRECTD U-100 Insulin) ipratropium 0.5 mg-albuterol 3 mg 3 ml inhalation Q4H PRN Wheezing 05/05/22 09/15/22 Unknown History (2.5 mg base)/3 mL nebulization soln Physical Exam Vital Signs and Narrative: Vital Signs: Last Vital Signs Temp 99.9 F 09/14/22 23:45 Pulse 85 09/15/22 00:23 Resp 20 09/15/22 00:23 BP 124/59 L 09/15/22 00:23 Pulse Ox 94 09/15/22 00:23 O2 Del Method 09/15/22 00:23 O2 Flow Rate 2 09/14/22 23:45 Oxygen Flow Rate 2 09/14/22 17:05 BMI result Body Mass Index 37.3 Const: Other: patient is alert and oriented to self and place and answers questions appropriately General: cooperative and no acute distress Orientation/consciousness: patient oriented x3 Eyes: General: appearance normal, both eyes and all related structures Resp: Effort & Inspection: normal respiratory effort Auscultation: clear to auscultation bilaterally Cardio: Rate: regular rate Rhythm: regular rhythm GI: Palpation (GI): Soft to palpation Auscultation: normal bowel sounds Skin: Other: necrotic tissue at the base of the index finger on the left, has significant erythema and warmth Neuro: General: patient oriented x3 Extrem: Other: amputation of the left index and middle finger, index finger as described in skin General: Yes no pedal edema Results Labs CBC and Chem 7: 09/14/22 22:33 09/14/22 17:37 Labs: Laboratory Results - last 24 hr 09/14/22 09/14/22 09/14/22 17:37 17:37 17:37 MCV 80.1 MCH 25.9 L MCHC 32.4 RDW 13.7 Plt Count 218 D MPV 10.6 Immature Gran % (Auto) 0.6 H Neut % (Auto) 78.1 H Lymph % (Auto) 13.5 L Gilchrist % (Auto) 7.1 Eos % (Auto) 0.6 Baso % (Auto) 0.1 Lymph # (Auto) 2.1 Gilchrist # (Auto) 1.1 Eos # (Auto) 0.1 Baso # (Auto) 0.0 Abs Immat Gran (auto) 0.10 H Absolute Neuts (auto) 12.3 H Absolute Nucleated RBC 0.000 Nucleated RBC % (auto) 0.0 PT INR aPTT Heparin Protocol Anion Gap 18 Estim Creat Clear Calc 12.3 Estimated GFR 12 Random Glucose 133 H Lactic Acid 1.1 Calcium 8.7 D Total Bilirubin 0.5 AST 10 ALT 7 Alkaline Phosphatase 138 H Troponin I High Sens Total Protein 7.1 Albumin 3.7 Stool Occult Blood Influenza Type A (PCR) Influenza Type B (PCR) RSV RNA Qual (PCR) SARS-CoV-2 RNA (RT-PCR) 09/14/22 09/14/22 09/14/22 17:37 17:37 18:58 MCV MCH MCHC RDW Plt Count MPV Immature Gran % (Auto) Neut % (Auto) Lymph % (Auto) Gilchrist % (Auto) Eos % (Auto) Baso % (Auto) Lymph # (Auto) Gilchrist # (Auto) Eos # (Auto) Baso # (Auto) Abs Immat Gran (auto) Absolute Neuts (auto) Absolute Nucleated RBC Nucleated RBC % (auto) PT INR aPTT Heparin Protocol Anion Gap Estim Creat Clear Calc Estimated GFR Random Glucose Lactic Acid Calcium Total Bilirubin AST ALT Alkaline Phosphatase Troponin I High Sens 335.5 H* D 353.1 H* Total Protein Albumin Stool Occult Blood Influenza Type A (PCR) NEGATIVE Influenza Type B (PCR) NEGATIVE RSV RNA Qual (PCR) NEGATIVE SARS-CoV-2 RNA (RT-PCR) NEGATIVE 09/14/22 09/14/22 09/14/22 21:06 22:33 22:33 MCV 80.8 MCH 26.0 L MCHC 32.2 RDW 13.7 Plt Count 166 MPV 9.9 Immature Gran % (Auto) Neut % (Auto) Lymph % (Auto) Gilchrist % (Auto) Eos % (Auto) Baso % (Auto) Lymph # (Auto) Gilchrist # (Auto) Eos # (Auto) Baso # (Auto) Abs Immat Gran (auto) Absolute Neuts (auto) Absolute Nucleated RBC 0.000 Nucleated RBC % (auto) 0.0 PT 13.1 INR 1.1 aPTT Heparin Protocol 28.1 L Anion Gap Estim Creat Clear Calc Estimated GFR Random Glucose Lactic Acid Calcium Total Bilirubin AST ALT Alkaline Phosphatase Troponin I High Sens 405.1 H* Total Protein Albumin Stool Occult Blood Influenza Type A (PCR) Influenza Type B (PCR) RSV RNA Qual (PCR) SARS-CoV-2 RNA (RT-PCR) 09/14/22 23:45 MCV MCH MCHC RDW Plt Count MPV Immature Gran % (Auto) Neut % (Auto) Lymph % (Auto) Gilchrist % (Auto) Eos % (Auto) Baso % (Auto) Lymph # (Auto) Gilchrist # (Auto) Eos # (Auto) Baso # (Auto) Abs Immat Gran (auto) Absolute Neuts (auto) Absolute Nucleated RBC Nucleated RBC % (auto) PT INR aPTT Heparin Protocol Anion Gap Estim Creat Clear Calc Estimated GFR Random Glucose Lactic Acid Calcium Total Bilirubin AST ALT Alkaline Phosphatase Troponin I High Sens Total Protein Albumin Stool Occult Blood NEGATIVE Influenza Type A (PCR) Influenza Type B (PCR) RSV RNA Qual (PCR) SARS-CoV-2 RNA (RT-PCR) Imaging Radiologist's Impressions: Impressions Hand X-Ray 09/14/22 17:58 IMPRESSION: 1. No radiographic evidence for osteomyelitis. 2. 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 Duplex Scan Upper Extremity Artery 09/14/22 23:03 IMPRESSION: There is no evidence of any hemodynamically significant upper extremity arterial disease by waveform or duplex Doppler criteria at rest. Assessment and Plan (1) Cellulitis of hand, left: Status: Acute (2) Non-ST elevated myocardial infarction: Status: Acute (3) Normocytic anemia: Status: Acute (4) UTI (urinary tract infection): Status: Acute Plan 67-year-old female with past medical history as mentioned above presents to the hospital with infected left finger # cellulitis of left index finger - with necrotic tissue - arterial duplex negative - will treat with IV antibiotics - follow cultures - general surgery consult for possible debridement - will obtain ESR and CRP # NSTEMI - elevated troponin - no EKG changes suggestive of ACS - given the significant elevation troponin, patient started on heparin drip in the ED - cardiology consulted - echocardiogram # normocytic anemia - unclear etiology - was evaluated in the past for the same, at that time patient underwent EGD which showed dysphagia, rows of gastritis, and duodenitis, - guaiac negative for any blood - patient receive 1 unit of PRBC - follow CBC - will place on Protonix 40 IV b.i.d. given heparin drip - monitor for bleed - follow CBC # hypertension - stable - continue home antihypertensives # diabetes - low-dose sliding scale as - diabetic diet DVT prophylaxis: Heparin GGT given patient's need for IV antibiotics as well as management and further evaluation of her NSTEMI patient require minimum 2 night inpatient hospital stay Time Spent With Patient Time: Total time managing care of this patient today ____ minutes. Quality Stroke Does the patient have a stroke diagnosis?: No VTE Prior VTE?: No VTE Risk Level:: Medical - moderate - high VTE Device Contraindication: Treatment Not Indicated VTE Drug Contraindication: N/A - Med Ordered
[2022-09-15 01:40] LABS: Troponin-I High Sensitivity 521.6 ng/L (<3.5-17.0)
--- NOTE | 2022-09-15 02:21 | MHC.EDTECH ---
Pt had a bowel movement and was soiled with urine and stool. Purewick failed due to pt position. Pericare given. pt repositioned in bed and new purewick system applied. Pt given warm blanket and call peck placed in reach
--- NOTE | 2022-09-15 04:15 | MHC.EDTECH ---
Pt still needs urine sample. Andrews Dumont awaiting response from provider to see if sample is still needed before proceeding forward with a straight cath to obtain the urine sample.
[2022-09-15 05:20] LABS: Appearance Urine Clear; Color Urine Yellow; Glucose Urine UA Negative (Negative); Leukocyte Esterase Urine Negative (Negative); Nitrite Urine Negative (Negative); PH 6.5 (5.0-9.0); Specific Gravity - Urine 1.015 (1.005-1.025); UMIC TRIGGER UACC YES; Urine Blood Negative (Negative); Urine Ketones Negative (Negative); Urine Protein 300 (3+) mg/dL (Neg-Trace)
--- NOTE | 2022-09-15 05:20 | PC.NURSE ---
Pt continues to sleep, respirations are even and unlabored
[2022-09-15 05:25] LABS: Bacteria Urine 4+ (None Seen); Hyaline Casts Urine 0-2 /LPF (0-2); RBC Urine 0-2 /HPF (0-2); Squamous Epithelial Cell Urine 0-2 /HPF (0-2); WBC Urine 0-5 /HPF (0-5)
[2022-09-15 05:51] LABS: Basophils Percent Auto 0.2 % (0-2); Eosinophils Absolute Auto 0.2 X10*3/uL (0.0-0.4); Eosinophils Percent Auto 1.4 % (0-4); Hematocrit 22.9 % (37.0-47.0); Hemoglobin 7.2 g/dl (12.0-16.0); Imm Gran Abs Auto 0.09 X10*3/uL (0.00-0.03); Imm Gran Pct Auto 0.7 % (0.0-0.4); Lymphocytes Percent Auto 16.9 % (20-40); MANUAL DIFF FLAG NO; Mean Corpuscular HGB Conc 31.4 g/dl (31.0-35.0); Mean Corpuscular Hemoglobin 25.3 pg (27.0-33.0); Mean Corpuscular Volume 80.4 fL (80.0-98.0); Mean Platelet Volume 10.5 fL (9.4-12.3); Neutrophils Absolute Auto 8.8 x10*3/uL (2.0-8.3); Neutrophils Percent Auto 72.8 % (45-73); Platelet Count 196 X10*3/uL (160-400); Red Blood Count 2.85 X10*6/uL (4.20-5.50); Red Cell Distribution Width 13.8 % (11.0-16.0); White Blood Count 12.1 X10*3/uL (4.8-10.8)
[2022-09-15 05:56] LABS: INTERNATIONAL NORM RATIO 1.2 (0.9-1.1); Prothrombin Time 13.4 SEC (10.0-13.1)
[2022-09-15 05:58] LABS: PTT Heparin Drip 55.6 SEC (53-77.9)
--- NOTE | 2022-09-15 06:05 | PC.NURSE ---
pTT heparin lab came back. No change to heparin drip needed, pt continues to sleep, no additional bruisng or bleeding noted
[2022-09-15 06:11] LABS: Anion Gap 18 (12-20); Blood Urea Nitrogen 67 mg/dL (9-16); C Reactive Protein 6.39 mg/dL (< or = 0.50); Calcium 8.3 mg/dL (8.4-10.2); Carbon Dioxide 18 mmol/L (22-29); Chloride 108 mmol/L (96-108); Estimated Glomerular Filt Rate 12; Glucose Random 100 mg/dL (60-115); Potassium 4.7 mmol/L (3.3-5.1); Sodium 139 mmol/L (135-145)
--- NOTE | 2022-09-15 07:00 | CA_ITS ---
Transthoracic Echocardiogram Patient (Last, First, Middle): Debbie Guerra, Gender: Female Date of : 1955 Age: 67 Procedure Date: 09/15/2022 Procedure Type: Transthoracic Echocardiogram Location: ER Height: 147.32 cm Weight: 80.74 kg BSA: 1.73 m2 Heart Rate: 96 bpm BP: 136 / 66 mmHg Insurance Verification Specialist: SB Referring MD: Hernán Malave MD Symptoms: nstemi Study Quality: Adequate w contrast ECG Rhythm: Sinus Conclusions: - The left ventricular systolic function is moderately decreased. The calculated ejection fraction is 32% by biplane method. - There is mild to moderate aortic valve stenosis. - There is moderate mitral annular calcification. There is mild mitral valve regurgitation. - Moderate to severe pulmonary hypertension is present. Findings Procedure Information Contrast agent, definity, is being given per protocol without apparent complications. Left Ventricle Normal left ventricular cavity size. There is normal left ventricular wall thickness. The left ventricular systolic function is moderately decreased. The calculated ejection fraction is 32% by biplane method. There is moderate global hypokinesis. Evidence suggests grade II (moderate) diastolic dysfunction. Right Ventricle Normal right ventricular cavity size and systolic function. Atria Both atria are normal in size. Aortic Valve There is mild calcification of the aortic valve. There is mild to moderate aortic valve stenosis. The mean gradient is 10 mmHg. The aortic valve area is 1.30 cm2. There is trace (trivial) aortic valve regurgitation. Mitral Valve There is mild anterior and posterior mitral leaflet thickening. There is moderate mitral annular calcification. There is mild mitral valve regurgitation. There is mild to moderate mitral valve stenosis. Pulmonic Valve The pulmonic valve is likely normal. Tricuspid Valve There is mild tricuspid valve regurgitation. The right ventricular systolic pressure is 65 mmHg. Moderate to severe pulmonary hypertension is present. Great Vessels The asc aorta is normal in size. Small plaque is seen in the sino tubular ridge. Venous The inferior vena cava is normal in size and collapses greater than 50% with inspiration. Pericardium/Pleural There is no evidence of pericardial effusion. Prior Study Comparison Changes noted compared to prior study dated: 05/06/2022. LVEF lower than prior study. Measurements 2D Linear Measurements IVSd: 0.89 0.6-0.9/0.6-1.0 cm LVIDd: 5.79 3.9-5.3/4.2-5.9 cm LVIDd Index: 3.35 2.4-3.2/2.2-3.1 cm/m2 LVIDs: 4.62 2.0-3.6 cm LVPWd: 0.73 0.7-1.1 cm LA Diam: 4.10 2.7-3.8/3.0-4.0 cm LAIDs Index: 2.37 1.5-2.3 cm/m2 LV Mass: 221.45 67-162/88-224 g LV Mass Index: 128.00 43-95/49-115 g/m2 LVOT Diam: 1.90 3.0+(-)1.3 cm 2D Systolic Function EF 4C: 20.70 >55% EF 2C: 39.10 >55% EF BiP: 32.00 >55% Mitral Valve MV VTI: 0.30 MV Pk Rudy: 1.86 MV Mn Rudy: 1.16 MV Pk Grad: 14.00 MV Mn Grad: 6.00 MV Pk E: 2.00 MV PK A: 1.39 MV Decel Time: 90.00 E/A: 1.40 E'Lateral: 5.85 E/E' Lat: 34.20 PHT: 26.00 MVA PHT: 8.46 MVA Continuity: 1.65 Decel [place]: 22.30 MR VTI: 1.72 Aortic Valve AoV Pk Rudy: 2.10 AoV Mn Rudy: 1.47 AoV VTI: 0.38 AoV Pk Grad: 18.00 Aov Mn Grad: 10.00 MAGNOLIA Cont.VTI: 1.30 LVOT LVOT Pk Rudy: 1.03 LVOT Mn Rudy: 0.68 LVOT VTI: 0.18 LVOT Pk Grad: 4.00 LVOT Mn Grad: 2.00 LVOT Diam: 1.90 LVOT Area: 2.84 Diastolic Function MV Pk E: 2.00 MV Pk A: 1.39 E/A: 1.40 E' Laterial: 5.85 E/E' Lat: 34.20 Right Ventricle TAPSE (mm): 17.50 TVS' Rudy: 7.23 Tricuspid Valve TR Pk Rudy: 3.93 TR Pk Grad: 62.00 RA Press: 3.00 RVSP: 65.00 Great Vessels Aorta Sinus of Valsalva: 2.30 2.0-3.5 cm Ao Asc: 3.70 2.1-3.4 cm Pulmonary Valve PV Pk Rudy: 1.11 Peak PV Grad: 5.00 Updated in Other Vendor System with Status of Final Andrea Vides MD electronically signed on 09/15/2022 5:13:51 PM with status of Final
[2022-09-15 07:12] LABS: Erythrocyte Sedimentation Rate 121 MM/HR (0-20)
--- NOTE | 2022-09-15 07:17 | PHA.MEDREC ---
Pharmacy Consult ? Medication Reconciliation Pharmacy has reviewed the medication reconciliation completed by Carine. Leslye Lock, GodwinD
[2022-09-15 07:21] LABS: Glucose, Whole Blood 93 mg/dL (60-115)
--- NOTE | 2022-09-15 08:11 | PHA.PROG ---
Admission Date/Time: September 15, 2022 00:27 Indication: SKIN/BONE Weight in k.1 kg Adjusted body weight in Kg: [place] body weight in Kg: Obesity Dosing Indication % IBW: Serum Creatinine - Last 168 Hours 09/14/22 09/15/22 17:37 05:25 Creatinine 3.87 H 3.66 H Estimated CrCl and GFR - Last 168 Hours 09/14/22 09/15/22 17:37 05:25 Estim Creat Clear Calc 12.3 13.0 Estimated GFR 12 12 Vancomycin Loading Dose: 1500 MG Current Vancomycin Dosing Regimen: 750 MG Q48H Vancomycin Monitoring using AUC goal of 400 - 600 range with trough as surrogate marker: AUC 581, TROUGH 19 Date and Time for next Vancomycin Level to be drawn: 09/16 @1700 Pharmacist Comments on Vancomycin Plan: - USING OBESE MODEL -PT IS NOT A DIALYSIS PATIENT YET - WILL SEE IF SCR DROPS FURTHER AND THEN SWITCH TO Q24H - MAY NEED TO CHANGE TO 500MG Q48H IF SCR RISES/TROUGH ELEVATED Vancomycin dosing will take advantage of [employer] as a clinical decision support tool that uses Bayesian modeling to calculate individual patient's pharmacokinetic parameters and forecast the patient's drug concentration time course with the target goal AUC 24 range of 400 - 600 mg/L/hr.
--- NOTE | 2022-09-15 08:22 | P.CONGS_ITS ---
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 She denies a history of trauma to the hand but does complain of arthritis in the hands. She has difficulty straightening out fingers. She denies a tobacco history. She presented to the emergency department and was noted to have WBC of 15.7. Arterial duplex studies were negative and hand x-ray showed no evidence of osteomyelitis. Surgical consultation was requested for possible debridement. Review of Systems Review of Systems: Yes all other systems are reviewed and are negative Musculoskeletal: Musculoskeletal: Reports as per HPI Comments: Denies pain in the hand fingers Integumentary/Breasts: Skin/Breast: Reports as per HPI PMFSH Past Medical History Medical History Acute on chronic renal failure Acute worsening of stage 4 chronic kidney disease Anemia Blister of finger without infection Cholecystectomy planned Chronic heart failure with preserved ejection fraction (HFpEF) CKD (chronic kidney disease) CKD (chronic kidney disease) stage 3, GFR 30-59 ml/min CKD (chronic kidney disease) stage 4, GFR 15-29 ml/min CKD (chronic kidney disease), stage IV Congestive heart failure Diabetes Diabetes mellitus Elevated d-dimer Elevated troponin Essential hypertension Gastroparesis Generalized weakness GERD (gastroesophageal reflux disease) Hand pain Hernia HLD (hyperlipidemia) HTN (hypertension) Hypomagnesemia Irritable bowel syndrome with diarrhea Lightheadedness Low blood pressure Non-ST elevated myocardial infarction Nonischemic cardiomyopathy Other and unspecified hyperlipidemia Pharyngoesophageal dysphagia Type 2 diabetes mellitus with unspecified complications UTI (urinary tract infection) Family History Family History Father Lung cancer Mother Diabetes HTN (hypertension) Heart disease Sister Diabetes Heart disease Brother Heart disease Son Diabetes Daughter Diabetes Surgical History Surgical History H/O: hysterectomy History of esophagogastroduodenoscopy (EGD) Hx of colonoscopy Hx of eye surgery Social History Social History Household Members: Unknown / Unable to assess Household Members Other:: SNF Housing: Assisted Living Facility Do you presently have visiting nurse or other home services: No Unable to assess alcohol history related to: Unknown Alcohol intake: never Patient Tobacco Use Status: Never used Tobacco Smoked in Last 30 Days: No Second Hand Smoke Exposure: No Use of substances other than those prescribed or required for medical reasons: No Advance Directives: Yes Advance Directives on File: Yes Advance Directives Date on File: 02/02/22 service: No Current occupational status: disabled Meds Allergies Allergy/AdvReac Type Severity Reaction Status Date / Time latex [LATEX] Allergy Intermediate ITCHY Verified 06/29/21 13:08 Active Medications: Current Medications Acetaminophen (Acetaminophen 325 Mg Tablet) 650 mg PO Q6H PRN PRN Reason: Pain, Mild (Pain Scale 1-3) Albuterol/Ipratropium (Albuterol/Iprat 2.5/0.5mg 3 Ml Ampul.Neb) 3 ml INHALE RQ4H PRN PRN Reason: Wheezing Amlodipine Besylate (Amlodipine Besylate 10 Mg Tablet) 10 mg PO DAILY MATTY; Protocol Aspirin (Aspirin Enteric Coated 81 Mg Tablet.Dr) 81 mg PO BEDTIME MATTY Atorvastatin Calcium (Atorvastatin Calcium 80 Mg Tablet) 80 mg PO BEDTIME MATTY Calcium Carbonate/Cholecalciferol (Calcium + Vitamin D 250 Mg Tablet) 250 mg PO BID MATTY Carvedilol (Carvedilol 6.25 Mg Tablet) 6.25 mg PO BID MATTY; Protocol Clopidogrel Bisulfate (Clopidogrel Bisulfate 75 Mg Tablet) 75 mg PO DAILY MATTY Dextrose (Dextrose 50 % 25 Gm/50 Ml Syringe) 25 gm IVPUSH Q15M PRN; Protocol PRN Reason: per Hypoglycemia Standing Ord. Docusate Sodium (Docusate Sodium 100 Mg Capsule) 100 mg PO DAILY PRN PRN Reason: Constipation Famotidine (Famotidine 20 Mg Tablet) 20 mg PO Q2D@0900 MATTY Furosemide (Furosemide 40 Mg Tablet) 40 mg PO BIDWM MATTY; Protocol Glucose (Glucose Gel 15 Gm Gel..Gram.) 15 gm PO Q15M PRN; Protocol PRN Reason: per Hypoglycemia Standing Ord. Heparin Sodium (Porcine) (Heparin Sodium,Porcine 5,000 Unit/Ml Vial) 3,200 unit 40 unit/kg (3200 unit) IVPUSH PROTOCOL BOLUS PRN; Protocol PRN Reason: 40 unit/kg - Heparin Protocol Heparin Sodium (Porcine) (Heparin Sodium,Porcine 5,000 Unit/Ml Vial) 6,500 unit 80 unit/kg (6500 unit) IVPUSH PROTOCOL BOLUS PRN; Protocol PRN Reason: 80 unit/kg - Heparin Protocol Heparin Sodium/Sodium Chloride (Heparin Sodium,Porcine/1/2ns) 25,000 unit in 25 0 mls @ 0 mls/hr IVCONT .Q0M [facility]; Protocol Last Admin: 09/14/22 22:50 Dose: 12 units/kg/hr, 9.73 mls/hr Vancomycin HCl 750 mg/ Sodium (Chloride) 265 mls @ 265 mls/hr IV Q48H [facility] Insulin Glargine (Insulin Glargine,Hum.Rec.Anlog 100 Unit/Ml 10 Ml Vial) 18 unit SUBCUT DAILY [facility] Insulin Human Lispro (Insulin Lispro 100 Unit/Ml 3 Ml Vial) 0 unit SUBCUT QIDACHS [facility]; Protocol Last Admin: 09/15/22 07:18 Dose: Not Given Magnesium Oxide (Magnesium Oxide 400 Mg Tablet) 400 mg PO BID [facility] Non-Formulary Medication (Sodium Polystyrene Sulfonate) 15 gm PO DAILY [facility] Ondansetron HCl (Ondansetron Hcl 4 Mg/2 Ml Vial) 4 mg IVPUSH Q8H PRN PRN Reason: Nausea and Vomiting Pantoprazole Sodium (Pantoprazole Sodium 40 Mg/10 Ml Vial) 40 mg IVPUSH BID@0630,1630 [facility] Last Admin: 09/15/22 06:21 Dose: Not Given Pharmacy Consult (Consult Rx Vancomycin Dosing) 1 each MISCELLANE DAILY PRN PRN Reason: Consult order Sertraline HCl (Sertraline Hcl 50 Mg Tablet) 50 mg PO DAILY [facility] Sodium Bicarbonate (Sodium Bicarbonate 650 Mg Tablet) 650 mg PO BID [facility] Trazodone HCl (Trazodone Hcl 50 Mg Tablet) 50 mg PO BEDTIME [facility] Home Medications Medication Instructions Recorded Confirmed Last Taken Type aspirin 81 mg tablet,delayed 81 mg PO BEDTIME 06/20/21 09/15/22 09/14/22 History release atorvastatin 80 mg tablet 80 mg PO BEDTIME 06/20/21 09/15/22 09/14/22 History calcium carbonate 600 mg-vitamin 1 tab PO BID 06/20/21 09/15/22 09/14/22 History D3 10 mcg (400 unit) tablet clopidogrel 75 mg tablet 75 mg PO DAILY 06/20/21 09/15/22 09/14/22 History magnesium oxide 400 mg (241.3 mg 400 mg PO BID 06/20/21 09/15/22 09/14/22 History magnesium) tablet sertraline 50 mg tablet 50 mg PO DAILY 06/20/21 09/15/22 09/14/22 History trazodone 50 mg tablet 50 mg PO BEDTIME 06/20/21 09/15/22 09/14/22 History insulin glargine 100 unit/mL (3 18 unit subcut DAILY 03/25/22 09/15/22 09/14/22 History mL) subcutaneous pen (Lantus Solostar U-100 Insulin) acetaminophen 500 mg tablet 2 tab PO QID PRN fever 05/05/22 09/15/22 Unknown History insulin lispro 100 unit/mL 1 sliding scale dose subcut 05/05/22 09/15/22 Unknown History subcutaneous solution (Humalog USEASDIRECTD U-100 Insulin) ipratropium 0.5 mg-albuterol 3 mg 3 ml inhalation Q4H PRN Wheezing 05/05/22 09/15/22 Unknown History (2.5 mg base)/3 mL nebulization soln Physical Exam Vital Signs: Vital Signs: Last Vital Signs Temp 99.2 F 09/15/22 07:04 Pulse 93 09/15/22 07:04 Resp 16 09/15/22 07:04 BP 136/66 09/15/22 07:04 Pulse Ox 94 09/15/22 07:04 O2 Del Method 09/15/22 07:04 O2 Flow Rate 2 09/15/22 07:04 Oxygen Flow Rate 2 09/14/22 17:05 BMI result Body Mass Index 37.3 Const: General: no acute distress Nutritional Appearance: well nourished Orientation/consciousness: patient oriented x3 HEENT: Head: Yes normocephalic and Yes atraumatic Resp: Effort & Inspection: normal respiratory effort, no audible wheezes, no cough and no respiratory distress GI: Inspection: Yes normal to inspection Skin: Other: Warm, dry, no rashes Neuro: General: patient oriented x3 Extrem: Other: Portions of multiple fingers have been amputated. The left index finger has areas of skin necrosis at the distal tip with limited range of motion possibly due to arthritic changes. No evidence of tenosynovitis appreciated. Results Labs Result diagrams: 09/15/22 05:25 09/15/22 05:25 Labs: Abnormal lab results 09/14/22 09/14/22 09/14/22 Range/Units 17:37 17:37 17:37 WBC 15.7 H (4.8-10.8) X10*3/uL RBC 3.01 L D (4.20-5.50) X10*6/uL Hgb 7.8 L D (12.0-16.0) g/dl Hct 24.1 L D (37.0-47.0) % MCH 25.9 L (27.0-33.0) pg Immature Gran % (Auto) 0.6 H (0.0-0.4) % Neut % (Auto) 78.1 H (45-73) % Lymph % (Auto) 13.5 L (20-40) % Abs Immat Gran (auto) 0.10 H (0.00-0.03) X10*3/uL Absolute Neuts (auto) 12.3 H (2.0-8.3) x10*3/uL ESR (0-20) MM/HR PT (10.0-13.1) SEC INR (0.9-1.1) aPTT Heparin Protocol (53-77.9) SEC Carbon Dioxide (22-29) mmol/L BUN 71 H (9-16) mg/dL Creatinine 3.87 H (0.5-1.4) mg/dL Random Glucose 133 H (60-115) mg/dL Calcium (8.4-10.2) mg/dL Alkaline Phosphatase 138 H (39-117) U/L Troponin I High Sens 335.5 H* D (<3.5-17.0) ng/L C-Reactive Protein (< or = 0.50) mg/dL Urine Protein (Neg-Trace) mg/dL 09/14/22 09/14/22 09/14/22 Range/Units 18:58 21:06 22:33 WBC 11.8 H (4.8-10.8) X10*3/uL RBC 2.65 L (4.20-5.50) X10*6/uL Hgb 6.9 L* (12.0-16.0) g/dl Hct 21.4 L (37.0-47.0) % MCH 26.0 L (27.0-33.0) pg Immature Gran % (Auto) (0.0-0.4) % Neut % (Auto) (45-73) % Lymph % (Auto) (20-40) % Abs Immat Gran (auto) (0.00-0.03) X10*3/uL Absolute Neuts (auto) (2.0-8.3) x10*3/uL ESR (0-20) MM/HR PT (10.0-13.1) SEC INR (0.9-1.1) aPTT Heparin Protocol (53-77.9) SEC Carbon Dioxide (22-29) mmol/L BUN (9-16) mg/dL Creatinine (0.5-1.4) mg/dL Random Glucose (60-115) mg/dL Calcium (8.4-10.2) mg/dL Alkaline Phosphatase (39-117) U/L Troponin I High Sens 353.1 H* 405.1 H* (<3.5-17.0) ng/L C-Reactive Protein (< or = 0.50) mg/dL Urine Protein (Neg-Trace) mg/dL 09/14/22 09/15/22 09/15/22 Range/Units 22:33 01:02 05:15 WBC (4.8-10.8) X10*3/uL RBC (4.20-5.50) X10*6/uL Hgb (12.0-16.0) g/dl Hct (37.0-47.0) % MCH (27.0-33.0) pg Immature Gran % (Auto) (0.0-0.4) % Neut % (Auto) (45-73) % Lymph % (Auto) (20-40) % Abs Immat Gran (auto) (0.00-0.03) X10*3/uL Absolute Neuts (auto) (2.0-8.3) x10*3/uL ESR (0-20) MM/HR PT (10.0-13.1) SEC INR (0.9-1.1) aPTT Heparin Protocol 28.1 L (53-77.9) SEC Carbon Dioxide (22-29) mmol/L BUN (9-16) mg/dL Creatinine (0.5-1.4) mg/dL Random Glucose (60-115) mg/dL Calcium (8.4-10.2) mg/dL Alkaline Phosphatase (39-117) U/L Troponin I High Sens 521.6 H* (<3.5-17.0) ng/L C-Reactive Protein (< or = 0.50) mg/dL Urine Protein 300 (3+) H (Neg-Trace) mg/dL 09/15/22 09/15/22 09/15/22 Range/Units 05:25 05:25 05:25 WBC 12.1 H (4.8-10.8) X10*3/uL RBC 2.85 L (4.20-5.50) X10*6/uL Hgb 7.2 L (12.0-16.0) g/dl Hct 22.9 L (37.0-47.0) % MCH 25.3 L (27.0-33.0) pg Immature Gran % (Auto) 0.7 H (0.0-0.4) % Neut % (Auto) (45-73) % Lymph % (Auto) 16.9 L (20-40) % Abs Immat Gran (auto) 0.09 H (0.00-0.03) X10*3/uL Absolute Neuts (auto) 8.8 H (2.0-8.3) x10*3/uL ESR (0-20) MM/HR PT 13.4 H (10.0-13.1) SEC INR 1.2 H (0.9-1.1) aPTT Heparin Protocol (53-77.9) SEC Carbon Dioxide 18 L (22-29) mmol/L BUN 67 H (9-16) mg/dL Creatinine 3.66 H (0.5-1.4) mg/dL Random Glucose (60-115) mg/dL Calcium 8.3 L (8.4-10.2) mg/dL Alkaline Phosphatase (39-117) U/L Troponin I High Sens (<3.5-17.0) ng/L C-Reactive Protein 6.39 H (< or = 0.50) mg/dL Urine Protein (Neg-Trace) mg/dL 09/15/22 Range/Units 05:25 WBC (4.8-10.8) X10*3/uL RBC (4.20-5.50) X10*6/uL Hgb (12.0-16.0) g/dl Hct (37.0-47.0) % MCH (27.0-33.0) pg Immature Gran % (Auto) (0.0-0.4) % Neut % (Auto) (45-73) % Lymph % (Auto) (20-40) % Abs Immat Gran (auto) (0.00-0.03) X10*3/uL Absolute Neuts (auto) (2.0-8.3) x10*3/uL ESR 121 H (0-20) MM/HR PT (10.0-13.1) SEC INR (0.9-1.1) aPTT Heparin Protocol (53-77.9) SEC Carbon Dioxide (22-29) mmol/L BUN (9-16) mg/dL Creatinine (0.5-1.4) mg/dL Random Glucose (60-115) mg/dL Calcium (8.4-10.2) mg/dL Alkaline Phosphatase (39-117) U/L Troponin I High Sens (<3.5-17.0) ng/L C-Reactive Protein (< or = 0.50) mg/dL Urine Protein (Neg-Trace) mg/dL Short CBC 09/14/22 09/14/22 09/15/22 Range/Units 17:37 22:33 05:25 WBC 15.7 H 11.8 H 12.1 H (4.8-10.8) X10*3/uL Hgb 7.8 L D 6.9 L* 7.2 L (12.0-16.0) g/dl Hct 24.1 L D 21.4 L 22.9 L (37.0-47.0) % Plt Count 218 D 166 196 (160-400) X10*3/uL BMP 09/14/22 09/15/22 17:37 05:25 Sodium 140 139 Potassium 4.7 4.7 Chloride 104 108 Carbon Dioxide 23 18 L BUN 71 H 67 H Creatinine 3.87 H 3.66 H Calcium 8.7 D 8.3 L Liver Function 09/14/22 Range/Units 17:37 Total Bilirubin 0.5 (0.0-1.0) mg/dL AST 10 (5-31) U/L ALT 7 (0-31) U/L Alkaline Phosphatase 138 H (39-117) U/L Albumin 3.7 (3.5-5.0) g/dL Urine 09/15/22 Range/Units 05:15 Urine Color Yellow Urine Appearance Clear Urine pH 6.5 (5.0-9.0) Ur Specific [place] 1.015 (1.005-1.025) Urine Protein 300 (3+) H (Neg-Trace) mg/dL Urine Glucose (UA) Negative (Negative) mg/dL All other labs normal. Assessment and Plan (1) Cellulitis of hand, left: Status: Acute Plan Patient presents with recurring infections of the hand now with an area of skin necrosis of the left index finger. Patient found to have an elevated WBC. Will consult hand surgery Dr. Panchal for further evaluation. Time Spent With Patient Time: Total time managing care of this patient today ____ minutes. Procedures Date of Service Date of Service: 09/15/22
[2022-09-15] MEDS: carvediloL 6.25 MG TABLET PO ×2 (09:01→20:05)
[2022-09-15] MEDS: Sodium Polystyrene Sulfon/Sorb 15 GM/60 ML ORAL.SUSP PO (09:01)
[2022-09-15] MEDS: Magnesium Oxide 400 MG TABLET PO ×2 (09:02→20:05)
[2022-09-15] MEDS: Sodium Bicarbonate 650 MG TABLET PO ×2 (09:02→20:05)
[2022-09-15] MEDS: Furosemide 40 MG TABLET PO ×2 (09:03→18:23)
[2022-09-15] MEDS: Insulin Glargine,Hum.rec.anlog 100 UNIT/ML 10 ML VIAL 18 UNIT SUBCUT (09:03)
[2022-09-15] MEDS: Clopidogrel Bisulfate 75 MG TABLET PO (09:03)
[2022-09-15] MEDS: Sertraline HCL 50 MG TABLET PO (09:03)
[2022-09-15] MEDS: Calcium + Vitamin D 250 MG TABLET PO ×2 (09:03→20:05)
[2022-09-15] MEDS: amLODIPine Besylate 10 MG TABLET PO (09:03)
[2022-09-15] MEDS: Famotidine 20 MG TABLET PO (09:03)
--- NOTE | 2022-09-15 11:57 | PM.CNCAR ---
History of Present Illness History of Present Illness Date of Service: 09/15/22 Chief complaint: diabetic wound, NSTEMI Narrative: This is a cardiology consultation regarding elevated troponins. I evaluated the patient with senior advisory. Also reviewed the admission documentation. Multiple medical comorbidities including diabetes, congestive heart failure, stroke, anemia, chronic kidney disease members. It seems that the daughter called the ambulance because she noticed her finger appearing infected and necrotic. Nonspecific symptoms. From cardiac, no clear anginal-type complaints. However, difficult to be sure in spite of using steamblaster. Troponins were checked and they were elevated and hence we have been consulted. Review of Systems Review of Systems: Yes all other systems are reviewed and are negative Constitutional: Constitutional: Reports as per HPI Eyes: Eyes: Reports as per HPI ENT: Reports as per HPI Cardiovascular: Cardiovascular: Reports as per HPI, Denies acrocyanosis, Denies cool extremities, Denies chest pain, Denies leg edema, Denies lightheadedness, Denies palpitations and Denies dyspnea Respiratory: Respiratory: Reports as per HPI, Reports no additional respiratory complaints and Denies dyspnea Gastrointestinal: Gastrointestinal: Reports as per HPI and Reports no additional gastrointestinal complaints Genitourinary: Genitourinary: Reports as per HPI Musculoskeletal: Musculoskeletal: Reports no additional musculoskeletal complaints and Reports as per HPI Integumentary/Breasts: Skin/Breast: Reports system reviewed and no additional complaints, except as docu Neurologic: Reports system reviewed and no additional complaints, except as documented and Reports as per HPI Psychiatric: Psychiatric: Reports no additional psychiatric complaints and Reports as per HPI Endocrine: Endocrine: Reports no additional endocrine complaints, Reports as per HPI and Denies palpitations Hematologic/Lymphatic: Hematologic/Lymphatic: Reports no additional hematologic/lymphatic complaints and Reports as per HPI Allergic/Immunologic: Allergic/Immunologic: Reports no additional allergic/immunologic complaints and Reports as per HPI PMF Past Medical History Medical History Acute on chronic renal failure Acute worsening of stage 4 chronic kidney disease Anemia Blister of finger without infection Cholecystectomy planned Chronic heart failure with preserved ejection fraction (HFpEF) CKD (chronic kidney disease) CKD (chronic kidney disease) stage 3, GFR 30-59 ml/min CKD (chronic kidney disease) stage 4, GFR 15-29 ml/min CKD (chronic kidney disease), stage IV Congestive heart failure Diabetes Diabetes mellitus Elevated d-dimer Elevated troponin Essential hypertension Gastroparesis Generalized weakness GERD (gastroesophageal reflux disease) Hand pain Hernia HLD (hyperlipidemia) HTN (hypertension) Hypomagnesemia Irritable bowel syndrome with diarrhea Lightheadedness Low blood pressure Non-ST elevated myocardial infarction Nonischemic cardiomyopathy Other and unspecified hyperlipidemia Pharyngoesophageal dysphagia Type 2 diabetes mellitus with unspecified complications UTI (urinary tract infection) Family History Family History Father Lung cancer Mother Diabetes HTN (hypertension) Heart disease Sister Diabetes Heart disease Brother Heart disease Son Diabetes Daughter Diabetes Surgical History Surgical History H/O: hysterectomy History of esophagogastroduodenoscopy (EGD) Hx of colonoscopy Hx of eye surgery Social History Social History Household Members: Unknown / Unable to assess Household Members Other:: SNF Housing: Assisted Living Facility Do you presently have visiting nurse or other home services: No Unable to assess alcohol history related to: Unknown Alcohol intake: never Patient Tobacco Use Status: Never used Tobacco Smoked in Last 30 Days: No Second Hand Smoke Exposure: No Use of substances other than those prescribed or required for medical reasons: No Advance Directives: Yes Advance Directives on File: Yes Advance Directives Date on File: 02/02/22 service: No Current occupational status: disabled Meds Allergies Allergy/AdvReac Type Severity Reaction Status Date / Time latex [LATEX] Allergy Intermediate ITCHY Verified 06/29/21 13:08 Active Medications: Current Medications Acetaminophen (Acetaminophen 325 Mg Tablet) 650 mg PO Q6H PRN PRN Reason: Pain, Mild (Pain Scale 1-3) Albuterol/Ipratropium (Albuterol/Iprat 2.5/0.5mg 3 Ml Ampul.Neb) 3 ml INHALE RQ4H PRN PRN Reason: Wheezing Amlodipine Besylate (Amlodipine Besylate 10 Mg Tablet) 10 mg PO DAILY [facility]; Protocol Last Admin: 09/15/22 09:03 Dose: 10 mg Aspirin (Aspirin Enteric Coated 81 Mg Tablet.) 81 mg PO BEDTIME [facility] Atorvastatin Calcium (Atorvastatin Calcium 80 Mg Tablet) 80 mg PO BEDTIME [facility] Calcium Carbonate/Cholecalciferol (Calcium + Vitamin D 250 Mg Tablet) 250 mg PO BID [facility] Last Admin: 09/15/22 09:03 Dose: 250 mg Carvedilol (Carvedilol 6.25 Mg Tablet) 6.25 mg PO BID [facility]; Protocol Last Admin: 09/15/22 09:01 Dose: 6.25 mg Clopidogrel Bisulfate (Clopidogrel Bisulfate 75 Mg Tablet) 75 mg PO DAILY [facility] Last Admin: 09/15/22 09:03 Dose: 75 mg Dextrose (Dextrose 50 % 25 Gm/50 Ml Syringe) 25 gm IVPUSH Q15M PRN; Protocol PRN Reason: per Hypoglycemia Standing Ord. Docusate Sodium (Docusate Sodium 100 Mg Capsule) 100 mg PO DAILY PRN PRN Reason: Constipation Famotidine (Famotidine 20 Mg Tablet) 20 mg PO Q2D@0900 [facility] Last Admin: 09/15/22 09:03 Dose: 20 mg Furosemide (Furosemide 40 Mg Tablet) 40 mg PO BIDWM [facility]; Protocol Last Admin: 09/15/22 09:03 Dose: 40 mg Glucose (Glucose Gel 15 Gm Gel..Gram.) 15 gm PO Q15M PRN; Protocol PRN Reason: per Hypoglycemia Standing Ord. Heparin Sodium (Porcine) (Heparin Sodium,Porcine 5,000 Unit/Ml Vial) 3,200 unit 40 unit/kg (3200 unit) IVPUSH PROTOCOL BOLUS PRN; Protocol PRN Reason: 40 unit/kg - Heparin Protocol Heparin Sodium (Porcine) (Heparin Sodium,Porcine 5,000 Unit/Ml Vial) 6,500 unit 80 unit/kg (6500 unit) IVPUSH PROTOCOL BOLUS PRN; Protocol PRN Reason: 80 unit/kg - Heparin Protocol Heparin Sodium/Sodium Chloride (Heparin Sodium,Porcine/1/2ns) 25,000 unit in 250 mls @ 0 mls/hr IVCONT .Q0M [facility]; Protocol Last Admin: 09/14/22 22:50 Dose: 12 units/kg/hr, 9.73 mls/hr Vancomycin HCl 750 mg/ Sodium (Chloride) 265 mls @ 265 mls/hr IV Q48H [facility] Insulin Glargine (Insulin Glargine,Hum.Rec.Anlog 100 Unit/Ml 10 Ml Vial) 18 unit SUBCUT DAILY [facility] Last Admin: 09/15/22 09:03 Dose: 18 unit Insulin Human Lispro (Insulin Lispro 100 Unit/Ml 3 Ml Vial) 0 unit SUBCUT QIDACHS [facility]; Protocol Last Admin: 09/15/22 07:18 Dose: Not Given Magnesium Oxide (Magnesium Oxide 400 Mg Tablet) 400 mg PO BID [facility] Last Admin: 09/15/22 09:02 Dose: 400 mg Ondansetron HCl (Ondansetron Hcl 4 Mg/2 Ml Vial) 4 mg IVPUSH Q8H PRN PRN Reason: Nausea and Vomiting Pantoprazole Sodium (Pantoprazole Sodium 40 Mg/10 Ml Vial) 40 mg IVPUSH BID@0630,1630 [facility] Last Admin: 09/15/22 06:21 Dose: Not Given Pharmacy Consult (Consult Rx Vancomycin Dosing) 1 each MISCELLANE DAILY PRN PRN Reason: Consult order Sertraline HCl (Sertraline Hcl 50 Mg Tablet) 50 mg PO DAILY [facility] Last Admin: 09/15/22 09:03 Dose: 50 mg Sodium Bicarbonate (Sodium Bicarbonate 650 Mg Tablet) 650 mg PO BID [facility] Last Admin: 09/15/22 09:02 Dose: 650 mg Sodium Polystyrene Sulfonate (Sodium Polystyrene Sulfon/Sorb 15 Gm/60 Ml Oral.Susp) 15 gm PO DAILY [facility] Last Admin: 09/15/22 09:01 Dose: 15 gm Trazodone HCl (Trazodone Hcl 50 Mg Tablet) 50 mg PO BEDTIME [facility] Home Medications Medication Instructions Recorded Confirmed Last Taken Type aspirin 81 mg tablet,delayed 81 mg PO BEDTIME 06/20/21 09/15/22 09/14/22 History release atorvastatin 80 mg tablet 80 mg PO BEDTIME 06/20/21 09/15/22 09/14/22 History calcium carbonate 600 mg-vitamin 1 tab PO BID 06/20/21 09/15/22 09/14/22 History D3 10 mcg (400 unit) tablet clopidogrel 75 mg tablet 75 mg PO DAILY 06/20/21 09/15/22 09/14/22 History magnesium oxide 400 mg (241.3 mg 400 mg PO BID 06/20/21 09/15/22 09/14/22 History magnesium) tablet sertraline 50 mg tablet 50 mg PO DAILY 06/20/21 09/15/22 09/14/22 History trazodone 50 mg tablet 50 mg PO BEDTIME 06/20/21 09/15/22 09/14/22 History insulin glargine 100 unit/mL (3 18 unit subcut DAILY 03/25/22 09/15/22 09/14/22 History mL) subcutaneous pen (Lantus Solostar U-100 Insulin) acetaminophen 500 mg tablet 2 tab PO QID PRN fever 05/05/22 09/15/22 Unknown History insulin lispro 100 unit/mL 1 sliding scale dose subcut 05/05/22 09/15/22 Unknown History subcutaneous solution (Humalog USEASDIRECTD U-100 Insulin) ipratropium 0.5 mg-albuterol 3 mg 3 ml inhalation Q4H PRN Wheezing 05/05/22 09/15/22 Unknown History (2.5 mg base)/3 mL nebulization soln Physical Exam Vital Signs: Vital Signs: Last Vital Signs Temp 99.2 F 09/15/22 07:04 Pulse 93 09/15/22 09:04 Resp 19 09/15/22 09:04 BP 136/58 L 09/15/22 09:04 Pulse Ox 95 09/15/22 09:04 O2 Del Method 09/15/22 09:04 O2 Flow Rate 2 09/15/22 09:04 Oxygen Flow Rate 2 09/14/22 17:05 BMI result Body Mass Index 37.3 Objective Labs and Meds Result diagrams: 09/15/22 05:25 09/15/22 05:25 Lab results: Laboratory Results - last 24 hr 09/14/22 09/14/22 09/14/22 17:37 17:37 17:37 WBC 15.7 H RBC 3.01 L D Hgb 7.8 L D Hct 24.1 L D MCV 80.1 MCH 25.9 L MCHC 32.4 RDW 13.7 Plt Count 218 D MPV 10.6 Immature Gran % (Auto) 0.6 H Neut % (Auto) 78.1 H Lymph % (Auto) 13.5 L [place] % (Auto) 7.1 Eos % (Auto) 0.6 Baso % (Auto) 0.1 Lymph # (Auto) 2.1 [place] # (Auto) 1.1 Eos # (Auto) 0.1 Baso # (Auto) 0.0 Abs Immat Gran (auto) 0.10 H Absolute Neuts (auto) 12.3 H Absolute Nucleated RBC 0.000 Nucleated RBC % (auto) 0.0 ESR PT INR aPTT Heparin Protocol Sodium 140 Potassium 4.7 Chloride 104 Carbon Dioxide 23 Anion Gap 18 BUN 71 H Creatinine 3.87 H Estim Creat Clear Calc 12.3 Estimated GFR 12 POC Glucose Random Glucose 133 H Lactic Acid 1.1 Calcium 8.7 D Total Bilirubin 0.5 AST 10 ALT 7 Alkaline Phosphatase 138 H Troponin I High Sens C-Reactive Protein Total Protein 7.1 Albumin 3.7 Urine Color Urine Appearance Urine pH Ur Specific [place] Urine Protein Urine Glucose (UA) Urine Ketones Urine Blood Urine Nitrite Ur Leukocyte Esterase Urine RBC Urine WBC Ur Squamous Epith Cells Urine Bacteria Hyaline Casts Stool Occult Blood Influenza Type A (PCR) Influenza Type B (PCR) RSV RNA Qual (PCR) SARS-CoV-2 RNA (RT-PCR) 09/14/22 09/14/22 09/14/22 17:37 17:37 18:58 WBC RBC Hgb Hct MCV MCH MCHC RDW Plt Count MPV Immature Gran % (Auto) Neut % (Auto) Lymph % (Auto) [place] % (Auto) Eos % (Auto) Baso % (Auto) Lymph # (Auto) [place] # (Auto) Eos # (Auto) Baso # (Auto) Abs Immat Gran (auto) Absolute Neuts (auto) Absolute Nucleated RBC Nucleated RBC % (auto) ESR PT INR aPTT Heparin Protocol Sodium Potassium Chloride Carbon Dioxide Anion Gap BUN Creatinine Estim Creat Clear Calc Estimated GFR POC Glucose Random Glucose Lactic Acid Calcium Total Bilirubin AST ALT Alkaline Phosphatase Troponin I High Sens 335.5 H* D 353.1 H* C-Reactive Protein Total Protein Albumin Urine Color Urine Appearance Urine pH Ur Specific [place] Urine Protein Urine Glucose (UA) Urine Ketones Urine Blood Urine Nitrite Ur Leukocyte Esterase Urine RBC Urine WBC Ur Squamous Epith Cells Urine Bacteria Hyaline Casts Stool Occult Blood Influenza Type A (PCR) NEGATIVE Influenza Type B (PCR) NEGATIVE RSV RNA Qual (PCR) NEGATIVE SARS-CoV-2 RNA (RT-PCR) NEGATIVE 09/14/22 09/14/22 09/14/22 21:06 22:33 22:33 WBC 11.8 H RBC 2.65 L Hgb 6.9 L* Hct 21.4 L MCV 80.8 MCH 26.0 L MCHC 32.2 RDW 13.7 Plt Count 166 MPV 9.9 Immature Gran % (Auto) Neut % (Auto) Lymph % (Auto) [place] % (Auto) Eos % (Auto) Baso % (Auto) Lymph # (Auto) [place] # (Auto) Eos # (Auto) Baso # (Auto) Abs Immat Gran (auto) Absolute Neuts (auto) Absolute Nucleated RBC 0.000 Nucleated RBC % (auto) 0.0 ESR PT 13.1 INR 1.1 aPTT Heparin Protocol 28.1 L Sodium Potassium Chloride Carbon Dioxide Anion Gap BUN Creatinine Estim Creat Clear Calc Estimated GFR POC Glucose Random Glucose Lactic Acid Calcium Total Bilirubin AST ALT Alkaline Phosphatase Troponin I High Sens 405.1 H* C-Reactive Protein Total Protein Albumin Urine Color Urine Appearance Urine pH Ur Specific [place] Urine Protein Urine Glucose (UA) Urine Ketones Urine Blood Urine Nitrite Ur Leukocyte Esterase Urine RBC Urine WBC Ur Squamous Epith Cells Urine Bacteria Hyaline Casts Stool Occult Blood Influenza Type A (PCR) Influenza Type B (PCR) RSV RNA Qual (PCR) SARS-CoV-2 RNA (RT-PCR) 09/14/22 09/15/22 09/15/22 23:45 01:02 05:15 WBC RBC Hgb Hct MCV MCH MCHC RDW Plt Count MPV Immature Gran % (Auto) Neut % (Auto) Lymph % (Auto) [place] % (Auto) Eos % (Auto) Baso % (Auto) Lymph # (Auto) [place] # (Auto) Eos # (Auto) Baso # (Auto) Abs Immat Gran (auto) Absolute Neuts (auto) Absolute Nucleated RBC Nucleated RBC % (auto) ESR PT INR aPTT Heparin Protocol Sodium Potassium Chloride Carbon Dioxide Anion Gap BUN Creatinine Estim Creat Clear Calc Estimated GFR POC Glucose Random Glucose Lactic Acid Calcium Total Bilirubin AST ALT Alkaline Phosphatase Troponin I High Sens 521.6 H* C-Reactive Protein Total Protein Albumin Urine Color Yellow Urine Appearance Clear Urine pH 6.5 Ur Specific [place] 1.015 Urine Protein 300 (3+) H Urine Glucose (UA) Negative Urine Ketones Negative Urine Blood Negative Urine Nitrite Negative Ur Leukocyte Esterase Negative Urine RBC 0-2 Urine WBC 0-5 Ur Squamous Epith Cells 0-2 Urine Bacteria 4+ Hyaline Casts 0-2 Stool Occult Blood NEGATIVE Influenza Type A (PCR) Influenza Type B (PCR) RSV RNA Qual (PCR) SARS-CoV-2 RNA (RT-PCR) 09/15/22 09/15/22 09/15/22 05:25 05:25 05:25 WBC 12.1 H RBC 2.85 L Hgb 7.2 L Hct 22.9 L MCV 80.4 MCH 25.3 L MCHC 31.4 RDW 13.8 Plt Count 196 MPV 10.5 Immature Gran % (Auto) 0.7 H Neut % (Auto) 72.8 Lymph % (Auto) 16.9 L [place] % (Auto) 8.0 Eos % (Auto) 1.4 Baso % (Auto) 0.2 Lymph # (Auto) 2.0 [place] # (Auto) 1.0 Eos # (Auto) 0.2 Baso # (Auto) 0.0 Abs Immat Gran (auto) 0.09 H Absolute Neuts (auto) 8.8 H Absolute Nucleated RBC 0.000 Nucleated RBC % (auto) 0.0 ESR PT 13.4 H INR 1.2 H aPTT Heparin Protocol 55.6 D Sodium Potassium Chloride Carbon Dioxide Anion Gap BUN Creatinine Estim Creat Clear Calc Estimated GFR POC Glucose Random Glucose Lactic Acid Calcium Total Bilirubin AST ALT Alkaline Phosphatase Troponin I High Sens C-Reactive Protein Total Protein Albumin Urine Color Urine Appearance Urine pH Ur Specific [place] Urine Protein Urine Glucose (UA) Urine Ketones Urine Blood Urine Nitrite Ur Leukocyte Esterase Urine RBC Urine WBC Ur Squamous Epith Cells Urine Bacteria Hyaline Casts Stool Occult Blood Influenza Type A (PCR) Influenza Type B (PCR) RSV RNA Qual (PCR) SARS-CoV-2 RNA (RT-PCR) 09/15/22 09/15/22 09/15/22 05:25 05:25 07:14 WBC RBC Hgb Hct MCV MCH MCHC RDW Plt Count MPV Immature Gran % (Auto) Neut % (Auto) Lymph % (Auto) [place] % (Auto) Eos % (Auto) Baso % (Auto) Lymph # (Auto) [place] # (Auto) Eos # (Auto) Baso # (Auto) Abs Immat Gran (auto) Absolute Neuts (auto) Absolute Nucleated RBC Nucleated RBC % (auto) ESR 121 H PT INR aPTT Heparin Protocol Sodium 139 Potassium 4.7 Chloride 108 Carbon Dioxide 18 L Anion Gap 18 BUN 67 H Creatinine 3.66 H Estim Creat Clear Calc 13.0 Estimated GFR 12 POC Glucose 93 Random Glucose 100 Lactic Acid Calcium 8.3 L Total Bilirubin AST ALT Alkaline Phosphatase Troponin I High Sens C-Reactive Protein 6.39 H Total Protein Albumin Urine Color Urine Appearance Urine pH Ur Specific [place] Urine Protein Urine Glucose (UA) Urine Ketones Urine Blood Urine Nitrite Ur Leukocyte Esterase Urine RBC Urine WBC Ur Squamous Epith Cells Urine Bacteria Hyaline Casts Stool Occult Blood Influenza Type A (PCR) Influenza Type B (PCR) RSV RNA Qual (PCR) SARS-CoV-2 RNA (RT-PCR) ECG Interpretation: EKG with sinus rhythm, PVCs for; left bundle-branch block pattern; 99/Min. Lateral T-wave changes noticed before. Imaging Radiologist's impression: Impressions Hand X-Ray 09/14/22 17:58 IMPRESSION: 1. No radiographic evidence for osteomyelitis. 2. 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 Duplex Scan Upper Extremity Artery 09/14/22 23:03 IMPRESSION: There is no evidence of any hemodynamically significant upper extremity arterial disease by waveform or duplex Doppler criteria at rest. Assessment and Plan (1) Non-ST elevated myocardial infarction: Status: Acute (2) Cardiomyopathy: Status: Acute Plan Last echocardiogram with mild to moderately reduced LVEF at 40-45%. Moderate to severely decreased right ventricular systolic function. Repeat study pending. Myocardial perfusion imaging study from 2020-normal perfusion; LVEF 35%. Troponin trend noted. Levels include 335, 353, 405 and 521. Elevated BUN creatinine at 67 and 3.6. She is also anemic at 7.2. Overall, non ST-elevation myocardial infarction in setting of finger cellulitis. She is a poor candidate for invasive management. At this time, recommend 48 hours IV heparin, aspirin, high-dose statins. Also on beta-blockers. Will review echocardiogram. Time Spent With Patient Time: Total time managing care of this patient today 40 minutes. Procedures Date of Service Date of Service: 09/15/22
[2022-09-15 12:26] LABS: Glucose, Whole Blood 156 mg/dL (60-115)
[2022-09-15 12:32] LABS: PTT Heparin Drip 54.7 SEC (53-77.9)
[2022-09-15] MEDS: Insulin Lispro 100 UNIT/ML 3 ML VIAL SUBCUT (12:37)
[2022-09-15 12:38] LABS: Iron 18 mcg/dL (30-160); Percent Iron Saturation 9 % (15-50); Total Iron Binding Capacity 199 mcg/dL (228-428); Unsaturated Iron Binding 181 ug/dL
[2022-09-15 13:06] LABS: Ferritin 300 ng/mL (10-250)
[2022-09-15 13:18] LABS: Folate 9.5 ng/mL (> or = 4.0); Vitamin B12 393 pg/mL (200-900)
--- NOTE | 2022-09-15 13:31 | P.CONOP_ITS ---
History of Present Illness HPI Consult date: 09/15/22 Chief complaint: diabetic wound, NSTEMI Narrative: S: the patient is a 67-year-old Danish-speaking woman with multiple medical comorbidities including diabetes and chronic kidney disease among other issues. She is being seen today for pain swelling and redness in her left index finger for approximately 3 days. She has been admitted and is on the hospitalist service , and she also has elevated troponin levels. [facility] Past Medical History Medical History Acute on chronic renal failure Acute worsening of stage 4 chronic kidney disease Anemia Blister of finger without infection Cholecystectomy planned Chronic heart failure with preserved ejection fraction (HFpEF) CKD (chronic kidney disease) CKD (chronic kidney disease) stage 3, GFR 30-59 ml/min CKD (chronic kidney disease) stage 4, GFR 15-29 ml/min CKD (chronic kidney disease), stage IV Congestive heart failure Diabetes Diabetes mellitus Elevated d-dimer Elevated troponin Essential hypertension Gastroparesis Generalized weakness GERD (gastroesophageal reflux disease) Hand pain Hernia HLD (hyperlipidemia) HTN (hypertension) Hypomagnesemia Irritable bowel syndrome with diarrhea Lightheadedness Low blood pressure Non-ST elevated myocardial infarction Nonischemic cardiomyopathy Other and unspecified hyperlipidemia Pharyngoesophageal dysphagia Type 2 diabetes mellitus with unspecified complications UTI (urinary tract infection) Family History Family History Father Lung cancer Mother Diabetes HTN (hypertension) Heart disease Sister Diabetes Heart disease Brother Heart disease Son Diabetes Daughter Diabetes Surgical History Surgical History H/O: hysterectomy History of esophagogastroduodenoscopy (EGD) Hx of colonoscopy Hx of eye surgery Social History Social History Household Members: Unknown / Unable to assess Household Members Other:: SNF Housing: Assisted Living Facility Do you presently have visiting nurse or other home services: No Unable to assess alcohol history related to: Unknown Alcohol intake: never Patient Tobacco Use Status: Never used Tobacco Smoked in Last 30 Days: No Second Hand Smoke Exposure: No Use of substances other than those prescribed or required for medical reasons: No Advance Directives: Yes Advance Directives on File: Yes Advance Directives Date on File: 02/02/22 service: No Current occupational status: disabled Meds Allergies Allergy/AdvReac Type Severity Reaction Status Date / Time latex [LATEX] Allergy Intermediate ITCHY Verified 06/29/21 13:08 Active Medications: Current Medications Acetaminophen (Acetaminophen 325 Mg Tablet) 650 mg PO Q6H PRN PRN Reason: Pain, Mild (Pain Scale 1-3) Albuterol/Ipratropium (Albuterol/Iprat 2.5/0.5mg 3 Ml Ampul.Neb) 3 ml INHALE RQ4H PRN PRN Reason: Wheezing Amlodipine Besylate (Amlodipine Besylate 10 Mg Tablet) 10 mg PO DAILY [facility]; Protocol Last Admin: 09/15/22 09:03 Dose: 10 mg Aspirin (Aspirin Enteric Coated 81 Mg Tablet.Dr) 81 mg PO BEDTIME MATTY Atorvastatin Calcium (Atorvastatin Calcium 80 Mg Tablet) 80 mg PO BEDTIME [facility] Calcium Carbonate/Cholecalciferol (Calcium + Vitamin D 250 Mg Tablet) 250 mg PO BID [facility] Last Admin: 09/15/22 09:03 Dose: 250 mg Carvedilol (Carvedilol 6.25 Mg Tablet) 6.25 mg PO BID [facility]; Protocol Last Admin: 09/15/22 09:01 Dose: 6.25 mg Clopidogrel Bisulfate (Clopidogrel Bisulfate 75 Mg Tablet) 75 mg PO DAILY [facility] Last Admin: 09/15/22 09:03 Dose: 75 mg Dextrose (Dextrose 50 % 25 Gm/50 Ml Syringe) 25 gm IVPUSH Q15M PRN; Protocol PRN Reason: per Hypoglycemia Standing Ord. Docusate Sodium (Docusate Sodium 100 Mg Capsule) 100 mg PO DAILY PRN PRN Reason: Constipation Famotidine (Famotidine 20 Mg Tablet) 20 mg PO Q2D@0900 [facility] Last Admin: 09/15/22 09:03 Dose: 20 mg Furosemide (Furosemide 40 Mg Tablet) 40 mg PO BIDWM [facility]; Protocol Last Admin: 09/15/22 09:03 Dose: 40 mg Glucose (Glucose Gel 15 Gm Gel..Gram.) 15 gm PO Q15M PRN; Protocol PRN Reason: per Hypoglycemia Standing Ord. Heparin Sodium (Porcine) (Heparin Sodium,Porcine 5,000 Unit/Ml Vial) 3,200 unit 40 unit/kg (3200 unit) IVPUSH PROTOCOL BOLUS PRN; Protocol PRN Reason: 40 unit/kg - Heparin Protocol Heparin Sodium (Porcine) (Heparin Sodium,Porcine 5,000 Unit/Ml Vial) 6,500 unit 80 unit/kg (6500 unit) IVPUSH PROTOCOL BOLUS PRN; Protocol PRN Reason: 80 unit/kg - Heparin Protocol Heparin Sodium/Sodium Chloride (Heparin Sodium,Porcine/1/2ns) 25,000 unit in 250 mls @ 0 mls/hr IVCONT .Q0M [facility]; Protocol Last Titration: 09/15/22 12:40 Dose: 12 units/kg/hr, 9.73 mls/hr Vancomycin HCl 750 mg/ Sodium (Chloride) 265 mls @ 265 mls/hr IV Q48H [facility] Insulin Glargine (Insulin Glargine,Hum.Rec.Anlog 100 Unit/Ml 10 Ml Vial) 18 unit SUBCUT DAILY [facility] Last Admin: 09/15/22 09:03 Dose: 18 unit Insulin Human Lispro (Insulin Lispro 100 Unit/Ml 3 Ml Vial) 0 unit SUBCUT QIDACHS [facility]; Protocol Last Admin: 09/15/22 12:37 Dose: 2 unit Magnesium Oxide (Magnesium Oxide 400 Mg Tablet) 400 mg PO BID [facility] Last Admin: 09/15/22 09:02 Dose: 400 mg Ondansetron HCl (Ondansetron Hcl 4 Mg/2 Ml Vial) 4 mg IVPUSH Q8H PRN PRN Reason: Nausea and Vomiting Pantoprazole Sodium (Pantoprazole Sodium 40 Mg/10 Ml Vial) 40 mg IVPUSH BID@0630,1630 [facility] Last Admin: 09/15/22 06:21 Dose: Not Given Pharmacy Consult (Consult Rx Vancomycin Dosing) 1 each MISCELLANE DAILY PRN PRN Reason: Consult order Sertraline HCl (Sertraline Hcl 50 Mg Tablet) 50 mg PO DAILY [facility] Last Admin: 09/15/22 09:03 Dose: 50 mg Sodium Bicarbonate (Sodium Bicarbonate 650 Mg Tablet) 650 mg PO BID [facility] Last Admin: 09/15/22 09:02 Dose: 650 mg Sodium Polystyrene Sulfonate (Sodium Polystyrene Sulfon/Sorb 15 Gm/60 Ml Oral.Susp) 15 gm PO DAILY [facility] Last Admin: 09/15/22 09:01 Dose: 15 gm Trazodone HCl (Trazodone Hcl 50 Mg Tablet) 50 mg PO BEDTIME [facility] Home Medications Medication Instructions Recorded Confirmed Last Taken Type aspirin 81 mg tablet,delayed 81 mg PO BEDTIME 06/20/21 09/15/22 09/14/22 History release atorvastatin 80 mg tablet 80 mg PO BEDTIME 06/20/21 09/15/22 09/14/22 History calcium carbonate 600 mg-vitamin 1 tab PO BID 06/20/21 09/15/22 09/14/22 History D3 10 mcg (400 unit) tablet clopidogrel 75 mg tablet 75 mg PO DAILY 06/20/21 09/15/22 09/14/22 History magnesium oxide 400 mg (241.3 mg 400 mg PO BID 06/20/21 09/15/22 09/14/22 History magnesium) tablet sertraline 50 mg tablet 50 mg PO DAILY 06/20/21 09/15/22 09/14/22 History trazodone 50 mg tablet 50 mg PO BEDTIME 06/20/21 09/15/22 09/14/22 History insulin glargine 100 unit/mL (3 18 unit subcut DAILY 03/25/22 09/15/22 09/14/22 History mL) subcutaneous pen (Lantus Solostar U-100 Insulin) acetaminophen 500 mg tablet 2 tab PO QID PRN fever 05/05/22 09/15/22 Unknown History insulin lispro 100 unit/mL 1 sliding scale dose subcut 05/05/22 09/15/22 Unknown History subcutaneous solution (Humalog USEASDIRECTD U-100 Insulin) ipratropium 0.5 mg-albuterol 3 mg 3 ml inhalation Q4H PRN Wheezing 05/05/22 09/15/22 Unknown History (2.5 mg base)/3 mL nebulization soln Physical Exam Vital Signs: Vital Signs: Last Vital Signs Temp 99.7 F 09/15/22 12:33 Pulse 99 09/15/22 12:33 Resp 23 H 09/15/22 12:33 BP 127/94 H 09/15/22 12:33 Pulse Ox 93 09/15/22 12:33 O2 Del Method 09/15/22 12:33 O2 Flow Rate 2 09/15/22 12:33 Oxygen Flow Rate 2 09/14/22 17:05 BMI result Body Mass Index 37.3 Const: General: cooperative Orientation/consciousness: oriented to person and oriented to place HEENT: Head: Yes normocephalic and Yes atraumatic Eyes: EOM: EOMs intact bilaterally Resp: Effort & Inspection: normal respiratory effort and able to speak in complete sentences Skin: General skin exam: turgor normal Rashes: no rashes Neuro: General: oriented to person and oriented to place Extrem: Other: Evaluation of left Upper Extremity: her left index finger has swelling, and erythema from about the mid aspect of the proximal and an open wound at the tip of the finger phalanx distally. There appears to be bone protruding through the tip of the digit, and this appears to be a chronic situation. The finger is held in a flexed position at the PIP joint. At present this appears to be limited to the left index finger. It should be noted however, that she also appears to have some attenuation of the soft tissues in the middle finger, possibly also with exposure of the tip of the distal phalanx. Radiographs: Three views of the left hand were reviewed by me today. They show attenuation of the Index finger distal phalanx and the soft tissues of the index finger. no fractures or dislocations. Attenuation Psych: Affect: normal affect Attitude: cooperative Results Labs Result Diagrams: 09/15/22 05:25 09/15/22 05:25 Labs: Abnormal lab results 09/14/22 09/14/22 09/14/22 Range/Units 17:37 17:37 17:37 WBC 15.7 H (4.8-10.8) X10*3/uL RBC 3.01 L D (4.20-5.50) X10*6/uL Hgb 7.8 L D (12.0-16.0) g/dl Hct 24.1 L D (37.0-47.0) % MCH 25.9 L (27.0-33.0) pg Immature Gran % (Auto) 0.6 H (0.0-0.4) % Neut % (Auto) 78.1 H (45-73) % Lymph % (Auto) 13.5 L (20-40) % Abs Immat Gran (auto) 0.10 H (0.00-0.03) X10*3/uL Absolute Neuts (auto) 12.3 H (2.0-8.3) x10*3/uL ESR (0-20) MM/HR PT (10.0-13.1) SEC INR (0.9-1.1) aPTT Heparin Protocol (53-77.9) SEC Carbon Dioxide (22-29) mmol/L BUN 71 H (9-16) mg/dL Creatinine 3.87 H (0.5-1.4) mg/dL POC Glucose (60-115) mg/dL Random Glucose 133 H (60-115) mg/dL Calcium (8.4-10.2) mg/dL Iron (30-160) mcg/dL TIBC (228-428) mcg/dL % Saturation (15-50) % Ferritin (10-250) ng/mL Alkaline Phosphatase 138 H (39-117) U/L Troponin I High Sens 335.5 H* D (<3.5-17.0) ng/L C-Reactive Protein (< or = 0.50) mg/dL Urine Protein (Neg-Trace) mg/dL 09/14/22 09/14/22 09/14/22 Range/Units 18:58 21:06 22:33 WBC 11.8 H (4.8-10.8) X10*3/uL RBC 2.65 L (4.20-5.50) X10*6/uL Hgb 6.9 L* (12.0-16.0) g/dl Hct 21.4 L (37.0-47.0) % MCH 26.0 L (27.0-33.0) pg Immature Gran % (Auto) (0.0-0.4) % Neut % (Auto) (45-73) % Lymph % (Auto) (20-40) % Abs Immat Gran (auto) (0.00-0.03) X10*3/uL Absolute Neuts (auto) (2.0-8.3) x10*3/uL ESR (0-20) MM/HR PT (10.0-13.1) SEC INR (0.9-1.1) aPTT Heparin Protocol (53-77.9) SEC Carbon Dioxide (22-29) mmol/L BUN (9-16) mg/dL Creatinine (0.5-1.4) mg/dL POC Glucose (60-115) mg/dL Random Glucose (60-115) mg/dL Calcium (8.4-10.2) mg/dL Iron (30-160) mcg/dL TIBC (228-428) mcg/dL % Saturation (15-50) % Ferritin (10-250) ng/mL Alkaline Phosphatase (39-117) U/L Troponin I High Sens 353.1 H* 405.1 H* (<3.5-17.0) ng/L C-Reactive Protein (< or = 0.50) mg/dL Urine Protein (Neg-Trace) mg/dL 09/14/22 09/15/22 09/15/22 Range/Units 22:33 01:02 05:15 WBC (4.8-10.8) X10*3/uL RBC (4.20-5.50) X10*6/uL Hgb (12.0-16.0) g/dl Hct (37.0-47.0) % MCH (27.0-33.0) pg Immature Gran % (Auto) (0.0-0.4) % Neut % (Auto) (45-73) % Lymph % (Auto) (20-40) % Abs Immat Gran (auto) (0.00-0.03) X10*3/uL Absolute Neuts (auto) (2.0-8.3) x10*3/uL ESR (0-20) MM/HR PT (10.0-13.1) SEC INR (0.9-1.1) aPTT Heparin Protocol 28.1 L (53-77.9) SEC Carbon Dioxide (22-29) mmol/L BUN (9-16) mg/dL Creatinine (0.5-1.4) mg/dL POC Glucose (60-115) mg/dL Random Glucose (60-115) mg/dL Calcium (8.4-10.2) mg/dL Iron (30-160) mcg/dL TIBC (228-428) mcg/dL % Saturation (15-50) % Ferritin (10-250) ng/mL Alkaline Phosphatase (39-117) U/L Troponin I High Sens 521.6 H* (<3.5-17.0) ng/L C-Reactive Protein (< or = 0.50) mg/dL Urine Protein 300 (3+) H (Neg-Trace) mg/dL 09/15/22 09/15/22 09/15/22 Range/Units 05:25 05:25 05:25 WBC 12.1 H (4.8-10.8) X10*3/uL RBC 2.85 L (4.20-5.50) X10*6/uL Hgb 7.2 L (12.0-16.0) g/dl Hct 22.9 L (37.0-47.0) % MCH 25.3 L (27.0-33.0) pg Immature Gran % (Auto) 0.7 H (0.0-0.4) % Neut % (Auto) (45-73) % Lymph % (Auto) 16.9 L (20-40) % Abs Immat Gran (auto) 0.09 H (0.00-0.03) X10*3/uL Absolute Neuts (auto) 8.8 H (2.0-8.3) x10*3/uL ESR (0-20) MM/HR PT 13.4 H (10.0-13.1) SEC INR 1.2 H (0.9-1.1) aPTT Heparin Protocol (53-77.9) SEC Carbon Dioxide 18 L (22-29) mmol/L BUN 67 H (9-16) mg/dL Creatinine 3.66 H (0.5-1.4) mg/dL POC Glucose (60-115) mg/dL Random Glucose (60-115) mg/dL Calcium 8.3 L (8.4-10.2) mg/dL Iron 18 L (30-160) mcg/dL TIBC 199 L (228-428) mcg/dL % Saturation 9 L (15-50) % Ferritin 300 H (10-250) ng/mL Alkaline Phosphatase (39-117) U/L Troponin I High Sens (<3.5-17.0) ng/L C-Reactive Protein 6.39 H (< or = 0.50) mg/dL Urine Protein (Neg-Trace) mg/dL 09/15/22 09/15/22 Range/Units 05:25 12:22 WBC (4.8-10.8) X10*3/uL RBC (4.20-5.50) X10*6/uL Hgb (12.0-16.0) g/dl Hct (37.0-47.0) % MCH (27.0-33.0) pg Immature Gran % (Auto) (0.0-0.4) % Neut % (Auto) (45-73) % Lymph % (Auto) (20-40) % Abs Immat Gran (auto) (0.00-0.03) X10*3/uL Absolute Neuts (auto) (2.0-8.3) x10*3/uL ESR 121 H (0-20) MM/HR PT (10.0-13.1) SEC INR (0.9-1.1) aPTT Heparin Protocol (53-77.9) SEC Carbon Dioxide (22-29) mmol/L BUN (9-16) mg/dL Creatinine (0.5-1.4) mg/dL POC Glucose 156 H (60-115) mg/dL Random Glucose (60-115) mg/dL Calcium (8.4-10.2) mg/dL Iron (30-160) mcg/dL TIBC (228-428) mcg/dL % Saturation (15-50) % Ferritin (10-250) ng/mL Alkaline Phosphatase (39-117) U/L Troponin I High Sens (<3.5-17.0) ng/L C-Reactive Protein (< or = 0.50) mg/dL Urine Protein (Neg-Trace) mg/dL H & H 09/14/22 09/14/22 09/15/22 Range/Units 17:37 22:33 05:25 Hgb 7.8 L D 6.9 L* 7.2 L (12.0-16.0) g/dl Hct 24.1 L D 21.4 L 22.9 L (37.0-47.0) % Coagulation 09/14/22 09/15/22 Range/Units 22:33 05:25 INR 1.1 1.2 H (0.9-1.1) All other labs normal. Assessment and Plan (1) Finger infection: Status: Acute Plan assessment and plan: 1. Left index finger infection in a patient with chronic attenuation of soft tissues at the tip of the digits secondary to multiple medical comorbidities. She is admitted to our hospitalist service. I spoke with Dr. Mixon about this patient. They are working up several medical issues And have placed her on IV antibiotics. As long as the finger infection does not worsen, I believe treating this with IV antibiotics for a few days is fine. We will follow the patient over the weekend, and plan to take her to the operating room if she is medically cleared to do so on Monday for a partial amputation of the digit Time Spent With Patient Time: Total time managing care of this patient today ____ minutes. Procedures Date of Service Date of Service: 09/15/22
--- NOTE | 2022-09-15 14:28 | PC.NURSE ---
changed purewick, washed pt, and bed change
--- NOTE | 2022-09-15 15:10 | P.PNIM_ITS ---
Subjective Subjective Date of Service: 09/15/22 Interval History: nstemi,cellulitis Review of Systems Denies any chest pain or shortness of breath or abdominal pain or any finger pain either No fever or chills Physical Exam Vital Signs: Vital Signs: Last Vital Signs Temp 99.7 F 09/15/22 12:33 Pulse 99 09/15/22 12:33 Resp 23 H 09/15/22 12:33 BP 127/94 H 09/15/22 12:33 Pulse Ox 93 09/15/22 12:33 O2 Del Method 09/15/22 12:33 O2 Flow Rate 2 09/15/22 12:33 Oxygen Flow Rate 2 09/14/22 17:05 BMI result Body Mass Index 37.3 Appearance: Alert.? Oriented X3.? not in distress.? Eyes: Pupils equal, round and reactive to light.? Sclera nonicteric.? ENT: Pharynx normal.? Moist mucous membranes. cvs: rrr, [id number] . res: clear to auscultation ,no rhonchii or wheezing abd: no rebound or guarding ,nt, bs present. 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 neuro: axo3 , nonfocal. Objective Data Active Medications Acetaminophen (Acetaminophen 325 Mg Tablet) 650 mg PO Q6H PRN PRN Reason: Pain, Mild (Pain Scale 1-3) Albuterol/Ipratropium (Albuterol/Iprat 2.5/0.5mg 3 Ml Ampul.Neb) 3 ml INHALE R Q4H PRN PRN Reason: Wheezing Amlodipine Besylate (Amlodipine Besylate 10 Mg Tablet) 10 mg PO DAILY [facility]; Protocol Last Admin: 09/15/22 09:03 Dose: 10 mg Documented By: SANDOVAL Aspirin (Aspirin Enteric Coated 81 Mg Tablet.) 81 mg PO BEDTIME [facility] Atorvastatin Calcium (Atorvastatin Calcium 80 Mg Tablet) 80 mg PO BEDTIME [facility] Calcium Carbonate/Cholecalciferol (Calcium + Vitamin D 250 Mg Tablet) 250 mg PO BID [facility] Last Admin: 09/15/22 09:03 Dose: 250 mg Documented By: SANDOVAL Carvedilol (Carvedilol 6.25 Mg Tablet) 6.25 mg PO BID [facility]; Protocol Last Admin: 09/15/22 09:01 Dose: 6.25 mg Documented By: SANDOVAL Clopidogrel Bisulfate (Clopidogrel Bisulfate 75 Mg Tablet) 75 mg PO DAILY [facility] Last Admin: 09/15/22 09:03 Dose: 75 mg Documented By: SANDOVAL Dextrose (Dextrose 50 % 25 Gm/50 Ml Syringe) 25 gm IVPUSH Q15M PRN; Protocol PRN Reason: per Hypoglycemia Standing Ord. Docusate Sodium (Docusate Sodium 100 Mg Capsule) 100 mg PO DAILY PRN PRN Reason: Constipation Famotidine (Famotidine 20 Mg Tablet) 20 mg PO Q2D@0900 [facility] Last Admin: 09/15/22 09:03 Dose: 20 mg Documented By: SANDOVAL Furosemide (Furosemide 40 Mg Tablet) 40 mg PO BIDWM [facility]; Protocol Last Admin: 09/15/22 09:03 Dose: 40 mg Documented By: SANDOVAL Glucose (Glucose Gel 15 Gm Gel..Gram.) 15 gm PO Q15M PRN; Protocol PRN Reason: per Hypoglycemia Standing Ord. Heparin Sodium (Porcine) (Heparin Sodium,Porcine 5,000 Unit/Ml Vial) 3,200 unit 40 unit/kg (3200 unit) IVPUSH PROTOCOL BOLUS PRN; Protocol PRN Reason: 40 unit/kg - Heparin Protocol Heparin Sodium (Porcine) (Heparin Sodium,Porcine 5,000 Unit/Ml Vial) 6,500 unit 80 unit/kg (6500 unit) IVPUSH PROTOCOL BOLUS PRN; Protocol PRN Reason: 80 unit/kg - Heparin Protocol Heparin Sodium/Sodium Chloride (Heparin Sodium,Porcine/1/2ns) 25,000 unit in 250 mls @ 0 mls/hr IVCONT .Q0M [facility]; Protocol Last Titration: 09/15/22 12:40 Dose: 12 units/kg/hr, 9.73 mls/hr Documented By: SANDOVAL Co-signed By: DORYS Vancomycin HCl 750 mg/ Sodium (Chloride) 265 mls @ 265 mls/hr IV Q48H [facility] Insulin Glargine (Insulin Glargine,Hum.Rec.Anlog 100 Unit/Ml 10 Ml Vial) 18 unit SUBCUT DAILY [facility] Last Admin: 09/15/22 09:03 Dose: 18 unit Documented By: SANDOVAL Insulin Human Lispro (Insulin Lispro 100 Unit/Ml 3 Ml Vial) 0 unit SUBCUT QIDACHS [facility]; Protocol Last Admin: 09/15/22 12:37 Dose: 2 unit Documented By: SANDOVAL Magnesium Oxide (Magnesium Oxide 400 Mg Tablet) 400 mg PO BID [facility] Last Admin: 09/15/22 09:02 Dose: 400 mg Documented By: SANDOVAL Ondansetron HCl (Ondansetron Hcl 4 Mg/2 Ml Vial) 4 mg IVPUSH Q8H PRN PRN Reason: Nausea and Vomiting Pantoprazole Sodium (Pantoprazole Sodium 40 Mg/10 Ml Vial) 40 mg IVPUSH BID@0630,1630 [facility] Last Admin: 09/15/22 06:21 Dose: Not Given Documented By: JAVON Non-Admin Reason: Physician Held Med Pharmacy Consult (Consult Rx Vancomycin Dosing) 1 each MISCELLANE DAILY PRN PRN Reason: Consult order Sertraline HCl (Sertraline Hcl 50 Mg Tablet) 50 mg PO DAILY [facility] Last Admin: 09/15/22 09:03 Dose: 50 mg Documented By: SANDOVAL Sodium Bicarbonate (Sodium Bicarbonate 650 Mg Tablet) 650 mg PO BID [facility] Last Admin: 09/15/22 09:02 Dose: 650 mg Documented By: SANDOVAL Sodium Polystyrene Sulfonate (Sodium Polystyrene Sulfon/Sorb 15 Gm/60 Ml Oral.Susp) 15 gm PO DAILY [facility] Last Admin: 09/15/22 09:01 Dose: 15 gm Documented By: SANDOVAL Trazodone HCl (Trazodone Hcl 50 Mg Tablet) 50 mg PO BEDTIME [facility] Labs CBC & Chem 7: 09/15/22 05:25 09/15/22 05:25 Labs: Laboratory Results - last 24 hr 09/14/22 09/14/22 09/14/22 17:37 17:37 17:37 MCV 80.1 MCH 25.9 L MCHC 32.4 RDW 13.7 Plt Count 218 D MPV 10.6 Immature Gran % (Auto) 0.6 H Neut % (Auto) 78.1 H Lymph % (Auto) 13.5 L [place] % (Auto) 7.1 Eos % (Auto) 0.6 Baso % (Auto) 0.1 Lymph # (Auto) 2.1 [place] # (Auto) 1.1 Eos # (Auto) 0.1 Baso # (Auto) 0.0 Abs Immat Gran (auto) 0.10 H Absolute Neuts (auto) 12.3 H Absolute Nucleated RBC 0.000 Nucleated RBC % (auto) 0.0 ESR PT INR aPTT Heparin Protocol Anion Gap 18 Estim Creat Clear Calc 12.3 Estimated GFR 12 POC Glucose Random Glucose 133 H Lactic Acid 1.1 Calcium 8.7 D Iron TIBC % Saturation Unsat Iron Binding Ferritin Total Bilirubin 0.5 AST 10 ALT 7 Alkaline Phosphatase 138 H Troponin I High Sens C-Reactive Protein Total Protein 7.1 Albumin 3.7 Vitamin B12 Folate Urine Color Urine Appearance Urine pH Ur Specific [place] Urine Protein Urine Glucose (UA) Urine Ketones Urine Blood Urine Nitrite Ur Leukocyte Esterase Urine RBC Urine WBC Ur Squamous Epith Cells Urine Bacteria Hyaline Casts Stool Occult Blood Influenza Type A (PCR) Influenza Type B (PCR) RSV RNA Qual (PCR) SARS-CoV-2 RNA (RT-PCR) 09/14/22 09/14/22 09/14/22 17:37 17:37 18:58 MCV MCH MCHC RDW Plt Count MPV Immature Gran % (Auto) Neut % (Auto) Lymph % (Auto) [place] % (Auto) Eos % (Auto) Baso % (Auto) Lymph # (Auto) [place] # (Auto) Eos # (Auto) Baso # (Auto) Abs Immat Gran (auto) Absolute Neuts (auto) Absolute Nucleated RBC Nucleated RBC % (auto) ESR PT INR aPTT Heparin Protocol Anion Gap Estim Creat Clear Calc Estimated GFR POC Glucose Random Glucose Lactic Acid Calcium Iron TIBC % Saturation Unsat Iron Binding Ferritin Total Bilirubin AST ALT Alkaline Phosphatase Troponin I High Sens 335.5 H* D 353.1 H* C-Reactive Protein Total Protein Albumin Vitamin B12 Folate Urine Color Urine Appearance Urine pH Ur Specific [place] Urine Protein Urine Glucose (UA) Urine Ketones Urine Blood Urine Nitrite Ur Leukocyte Esterase Urine RBC Urine WBC Ur Squamous Epith Cells Urine Bacteria Hyaline Casts Stool Occult Blood Influenza Type A (PCR) NEGATIVE Influenza Type B (PCR) NEGATIVE RSV RNA Qual (PCR) NEGATIVE SARS-CoV-2 RNA (RT-PCR) NEGATIVE 09/14/22 09/14/22 09/14/22 21:06 22:33 22:33 MCV 80.8 MCH 26.0 L MCHC 32.2 RDW 13.7 Plt Count 166 MPV 9.9 Immature Gran % (Auto) Neut % (Auto) Lymph % (Auto) [place] % (Auto) Eos % (Auto) Baso % (Auto) Lymph # (Auto) [place] # (Auto) Eos # (Auto) Baso # (Auto) Abs Immat Gran (auto) Absolute Neuts (auto) Absolute Nucleated RBC 0.000 Nucleated RBC % (auto) 0.0 ESR PT 13.1 INR 1.1 aPTT Heparin Protocol 28.1 L Anion Gap Estim Creat Clear Calc Estimated GFR POC Glucose Random Glucose Lactic Acid Calcium Iron TIBC % Saturation Unsat Iron Binding Ferritin Total Bilirubin AST ALT Alkaline Phosphatase Troponin I High Sens 405.1 H* C-Reactive Protein Total Protein Albumin Vitamin B12 Folate Urine Color Urine Appearance Urine pH Ur Specific [place] Urine Protein Urine Glucose (UA) Urine Ketones Urine Blood Urine Nitrite Ur Leukocyte Esterase Urine RBC Urine WBC Ur Squamous Epith Cells Urine Bacteria Hyaline Casts Stool Occult Blood Influenza Type A (PCR) Influenza Type B (PCR) RSV RNA Qual (PCR) SARS-CoV-2 RNA (RT-PCR) 09/14/22 09/15/22 09/15/22 23:45 01:02 05:15 MCV MCH MCHC RDW Plt Count MPV Immature Gran % (Auto) Neut % (Auto) Lymph % (Auto) Cand[place] % (Auto) Eos % (Auto) Baso % (Auto) Lymph # (Auto) [place] # (Auto) Eos # (Auto) Baso # (Auto) Abs Immat Gran (auto) Absolute Neuts (auto) Absolute Nucleated RBC Nucleated RBC % (auto) ESR PT INR aPTT Heparin Protocol Anion Gap Estim Creat Clear Calc Estimated GFR POC Glucose Random Glucose Lactic Acid Calcium Iron TIBC % Saturation Unsat Iron Binding Ferritin Total Bilirubin AST ALT Alkaline Phosphatase Troponin I High Sens 521.6 H* C-Reactive Protein Total Protein Albumin Vitamin B12 Folate Urine Color Yellow Urine Appearance Clear Urine pH 6.5 Ur Specific [place] 1.015 Urine Protein 300 (3+) H Urine Glucose (UA) Negative Urine Ketones Negative Urine Blood Negative Urine Nitrite Negative Ur Leukocyte Esterase Negative Urine RBC 0-2 Urine WBC 0-5 Ur Squamous Epith Cells 0-2 Urine Bacteria 4+ Hyaline Casts 0-2 Stool Occult Blood NEGATIVE Influenza Type A (PCR) Influenza Type B (PCR) RSV RNA Qual (PCR) SARS-CoV-2 RNA (RT-PCR) 09/15/22 09/15/22 09/15/22 05:25 05:25 05:25 MCV 80.4 MCH 25.3 L MCHC 31.4 RDW 13.8 Plt Count 196 MPV 10.5 Immature Gran % (Auto) 0.7 H Neut % (Auto) 72.8 Lymph % (Auto) 16.9 L [place] % (Auto) 8.0 Eos % (Auto) 1.4 Baso % (Auto) 0.2 Lymph # (Auto) 2.0 [place] # (Auto) 1.0 Eos # (Auto) 0.2 Baso # (Auto) 0.0 Abs Immat Gran (auto) 0.09 H Absolute Neuts (auto) 8.8 H Absolute Nucleated RBC 0.000 Nucleated RBC % (auto) 0.0 ESR PT 13.4 H INR 1.2 H aPTT Heparin Protocol 55.6 D Anion Gap Estim Creat Clear Calc Estimated GFR POC Glucose Random Glucose Lactic Acid Calcium Iron TIBC % Saturation Unsat Iron Binding Ferritin Total Bilirubin AST ALT Alkaline Phosphatase Troponin I High Sens C-Reactive Protein Total Protein Albumin Vitamin B12 Folate Urine Color Urine Appearance Urine pH Ur Specific [place] Urine Protein Urine Glucose (UA) Urine Ketones Urine Blood Urine Nitrite Ur Leukocyte Esterase Urine RBC Urine WBC Ur Squamous Epith Cells Urine Bacteria Hyaline Casts Stool Occult Blood Influenza Type A (PCR) Influenza Type B (PCR) RSV RNA Qual (PCR) SARS-CoV-2 RNA (RT-PCR) 09/15/22 09/15/22 09/15/22 05:25 05:25 05:25 MCV MCH MCHC RDW Plt Count MPV Immature Gran % (Auto) Neut % (Auto) Lymph % (Auto) [place] % (Auto) Eos % (Auto) Baso % (Auto) Lymph # (Auto) [place] # (Auto) Eos # (Auto) Baso # (Auto) Abs Immat Gran (auto) Absolute Neuts (auto) Absolute Nucleated RBC Nucleated RBC % (auto) ESR 121 H PT INR aPTT Heparin Protocol Anion Gap 18 Estim Creat Clear Calc 13.0 Estimated GFR 12 POC Glucose Random Glucose 100 Lactic Acid Calcium 8.3 L Iron 18 L TIBC 199 L % Saturation 9 L Unsat Iron Binding 181 Ferritin 300 H Total Bilirubin AST ALT Alkaline Phosphatase Troponin I High Sens C-Reactive Protein 6.39 H Total Protein Albumin Vitamin B12 393 Folate 9.5 Urine Color Urine Appearance Urine pH Ur Specific [place] Urine Protein Urine Glucose (UA) Urine Ketones Urine Blood Urine Nitrite Ur Leukocyte Esterase Urine RBC Urine WBC Ur Squamous Epith Cells Urine Bacteria Hyaline Casts Stool Occult Blood Influenza Type A (PCR) Influenza Type B (PCR) RSV RNA Qual (PCR) SARS-CoV-2 RNA (RT-PCR) 09/15/22 09/15/22 09/15/22 07:14 11:56 12:22 MCV MCH MCHC RDW Plt Count MPV Immature Gran % (Auto) Neut % (Auto) Lymph % (Auto) [place] % (Auto) Eos % (Auto) Baso % (Auto) Lymph # (Auto) [place] # (Auto) Eos # (Auto) Baso # (Auto) Abs Immat Gran (auto) Absolute Neuts (auto) Absolute Nucleated RBC Nucleated RBC % (auto) ESR PT INR aPTT Heparin Protocol 54.7 Anion Gap Estim Creat Clear Calc Estimated GFR POC Glucose 93 156 H Random Glucose Lactic Acid Calcium Iron TIBC % Saturation Unsat Iron Binding Ferritin Total Bilirubin AST ALT Alkaline Phosphatase Troponin I High Sens C-Reactive Protein Total Protein Albumin Vitamin B12 Folate Urine Color Urine Appearance Urine pH Ur Specific [place] Urine Protein Urine Glucose (UA) Urine Ketones Urine Blood Urine Nitrite Ur Leukocyte Esterase Urine RBC Urine WBC Ur Squamous Epith Cells Urine Bacteria Hyaline Casts Stool Occult Blood Influenza Type A (PCR) Influenza Type B (PCR) RSV RNA Qual (PCR) SARS-CoV-2 RNA (RT-PCR) Assessment and Plan (1) Finger infection: Status: Acute (2) Non-ST elevated myocardial infarction: Status: Acute (3) Normocytic anemia: Status: Acute (4) CKD (chronic kidney disease) stage 5, GFR less than 15 ml/min: Status: Acute Plan 67-year-old female with past medical history as mentioned above presents to the hospital with infected left finger #? cellulitis of left index finger with possible necrotic tissue -? arterial duplex negative,ESR 121 and CRP:6. -? will treat with IV antibiotics-on vanco/zosyn, follow blood cultures -? general surgery consult for possible debridement #? NSTEMI -? elevated troponin -? no EKG changes suggestive of? ACS -? given the significant elevation troponin, patient started on heparin drip in the ED -? echocardiogram CKD, elevated troponin, anemic, has NSTEMI in the setting of finger cellulitis: Cardiology recommended-She is a poor candidate for invasive management.? At this time, recommend 48 hours IV heparin, aspirin, high-dose statins.? Also on beta- blockers. #? normocytic anemia -? unclear etiology -? was evaluated in the past for the same, at that time patient underwent EGD which showed? dysphagia, rows of gastritis, and duodenitis, -? guaiac negative for any blood anemia workup, [id number] prbc Protonix 40 IV b.i.d. given heparin drip -? monitor for bleed -? follow CBC #? hypertension -? stable -? continue home antihypertensives #? diabetes -? low-dose sliding scale as -? diabetic diet ckd stage 4-5 /anemia moniter h/h anemia workup nephro eval ?DVT prophylaxis:? Heparin GGT ?given patient's need for IV antibiotics for cellulitis and as well as management and further evaluation of her NSTEMI including tele monitering,iv heparin. Time Spent With Patient Time: Total time managing care of this patient today ____ minutes. Quality Stroke Does the patient have a stroke diagnosis?: No VTE Prior VTE?: No VTE Risk Level:: Medical - moderate - high VTE Device Contraindication: Treatment Not Indicated VTE Drug Contraindication: N/A - Med Ordered
[2022-09-15] MEDS: Acetaminophen 325 MG TABLET 650 MG PO ×2 (15:30→18:26)
[2022-09-15 15:34] LABS: Glucose, Whole Blood 108 mg/dL (60-115)
[2022-09-15] MEDS: Piperacillin Sodium/Tazobactam 2.25 GM in 0.9 % Sodium Chloride 50 ML IV (15:45)
[2022-09-15] MEDS: Pantoprazole Sodium 40 MG/10 ML VIAL IVPUSH (15:45)
[2022-09-15 17:07] LABS: Hematocrit 22.1 % (37.0-47.0); Hemoglobin 7.1 g/dl (12.0-16.0)
[2022-09-15 19:54] LABS: Glucose, Whole Blood 108 mg/dL (60-115)
[2022-09-15] MEDS: Aspirin Enteric Coated 81 MG TABLET.DR PO (20:05)
[2022-09-15] MEDS: Atorvastatin Calcium 80 MG TABLET PO (20:05)
[2022-09-15] MEDS: traZODone HCL 50 MG TABLET PO (20:05)
[2022-09-15] MEDS: Heparin Sodium,Porcine/1/2NS 25,000 UNIT/250 ML IV.SOLN 9.73 UNIT IVCONT (23:41)
[2022-09-16] VITALS (7 sets, daily range): BP systolic 113–149; BP diastolic 62–72; PULSE 69–78; RESP 16–20; TEMP 36.2–36.9; O2SAT 92–96
[2022-09-16] MEDS: Furosemide 20 MG/2 ML VIAL IVPUSH (01:08)
[2022-09-16] MEDS: Piperacillin Sodium/Tazobactam 2.25 GM in 0.9 % Sodium Chloride 50 ML IV ×4 (04:57→22:24)
[2022-09-16] MEDS: Pantoprazole Sodium 40 MG/10 ML VIAL IVPUSH ×2 (05:54→16:28)
[2022-09-16 06:57] LABS: Hematocrit 24.5 % (37.0-47.0); Hemoglobin 7.9 g/dl (12.0-16.0); Mean Corpuscular HGB Conc 32.2 g/dl (31.0-35.0); Mean Corpuscular Hemoglobin 26.9 pg (27.0-33.0); Mean Corpuscular Volume 83.3 fL (80.0-98.0); Platelet Count 176 X10*3/uL (160-400); Red Blood Count 2.94 X10*6/uL (4.20-5.50); Red Cell Distribution Width 14.2 % (11.0-16.0); White Blood Count 12.2 X10*3/uL (4.8-10.8)
--- NOTE | 2022-09-16 07:01 | CONS_ITS ---
DATE OF SERVICE: 09/15/2022 REASON FOR CONSULTATION: I was asked to see patient to assist in evaluation and management of patient's acute kidney injury on advanced chronic kidney disease with her baseline creatinine 2.5 to 3.0 back in March and it appears that ever since the end of March, her creatinine now had been in 4.0 to 4.3 range. HISTORY OF PRESENT ILLNESS: In summary, the patient is a 67-year-old female, Turkmen-speaking only, with a history of multiple medical problems including advanced chronic kidney disease, diabetes, hypertension, heart failure, stroke, anemia, and hyperlipidemia. The patient presented to the hospital because of concern about infection in the finger tips as the tips of 2 of her fingers were necrotic. 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 There is mention made at the [facility] that she bites her fingernails. On admission to the hospital with concern for infection with elevated white blood cell count and fever. Also, her cardiac enzymes were positive myocardial infarction. As mentioned, her serum creatinine on admission was 3.9, now down to 3.6, and as mentioned, her baseline creatinine had been in the 2 to 2.5 range up until March of this year. Now, it has been ranging in the 4.0 range. PAST MEDICAL HISTORY: As noted above. Also includes GERD, nonischemic cardiomyopathy, urinary tract infections. MEDICATIONS: Her medications on admission are noted in the admitting notes. Current medications are noted in the MAR. ALLERGIES: SHE HAS ALLERGIES TO LATEX. FAMILY HISTORY: Noncontributory. REVIEW OF SYSTEMS: As noted above. PHYSICAL EXAMINATION: VITAL SIGNS: Blood pressure of 120/60 with a heart rate in the 80s. She is afebrile. HEENT: Head is atraumatic and normocephalic. NECK: Supple. Mucous membranes are moist. LUNGS: Breath sounds bilaterally. CARDIAC: Regular rate and rhythm. ABDOMEN: Soft, nontender with good bowel sounds. EXTREMITIES: Showed left index finger with some swelling and question of bone protruding through the tip. LABORATORY DATA: Sodium 130, potassium 4.7, chloride 108, bicarb 18, BUN 67, creatinine 3.66, calcium 8.3, and iron saturation 9%. Hemoglobin was 6.9 on admission, now at 7.1, white blood count 11.8, and platelet count 196. Urine studies show 3+ protein. IMPRESSION: ADVANCED CHRONIC KIDNEY DISEASE IN A DIABETIC ADMITTED WITH FEVER, WHITE COUNT AND QUESTION OF OSTEO OF HER FINGER. 1. Advanced chronic kidney disease. Her history is most consistent with advanced diabetic kidney disease. As reviewed, her baseline creatinine had been in the 2.5 to 3.0 range back in the past up until March in the 4.0 range. Again, this is most consistent with progressive diabetic renal disease. Given the combination of anemia, advanced kidney disease and proteinuria, we will rule out a dysproteinemia such as multiple myeloma. 2. Anemia. She has evidence of iron deficiency. She also has epo deficiency as well. Given the active infection, would not give her IV iron, rather p.o. iron and Procrit. 3. Question of osteomyelitis of the finger tip. 4. Preparations for renal placement therapy. Given her advanced kidney disease, we will need to prepare for renal placement therapy. I would protect her nondominant arm. Avoid nephrotoxins. I will check an intact PTH. Check a phosphorus level. Start her on Procrit and oral iron. We will follow the patient closely with the team. MD VERNELL Carty/BURAK / [phone]
[2022-09-16 07:09] LABS: PTT Heparin Drip 60.5 SEC (53-77.9)
[2022-09-16 07:12] LABS: Creatinine Clr Calc Pharmacy 13.1; Estimated Glomerular Filt Rate 12
[2022-09-16 07:14] LABS: Anion Gap 17 (12-20); Blood Urea Nitrogen 62 mg/dL (9-16); Calcium 8.1 mg/dL (8.4-10.2); Carbon Dioxide 18 mmol/L (22-29); Chloride 107 mmol/L (96-108); Creatinine Clr Calc Pharmacy 13.2; Estimated Glomerular Filt Rate 12; Glucose Random 83 mg/dL (60-115); Potassium 3.9 mmol/L (3.3-5.1); Sodium 138 mmol/L (135-145)
[2022-09-16 07:15] LABS: Phosphorus 4.2 mg/dL (2.7-4.5)
[2022-09-16 07:38] LABS: Glucose, Whole Blood 79 mg/dL (60-115)
--- NOTE | 2022-09-16 07:47 | PM.PNORT ---
Subjective Subjective Date of Service: 09/16/22 Interval history: Patient resting comfortably in bed. No overnight events. Continue IV abx. Reports that he pain in the left index finger is improving. No additional complaints. Physical Exam Vital Signs: Vital Signs: Last Vital Signs Temp 98.1 F 09/16/22 07:30 Pulse 75 09/16/22 07:30 Resp 18 09/16/22 07:30 BP 146/71 H 09/16/22 07:30 Pulse Ox 94 09/16/22 07:30 O2 Del Method 09/16/22 07:30 O2 Flow Rate 2 09/16/22 07:30 Oxygen Flow Rate 2 09/14/22 17:05 BMI result Body Mass Index 37.3 Const: General: cooperative, healthy appearing and no acute distress Orientation/consciousness: oriented to person and oriented to place HEENT: Head: Yes normocephalic and Yes atraumatic Eyes: EOM: EOMs intact bilaterally Resp: Effort & Inspection: normal respiratory effort and able to speak in complete sentences Cardio: Rate: regular rate Peripheral pulses: Peripheral pulses 2+ throughout GI: Palpation (GI): Soft to palpation Skin: General skin exam: turgor normal Lesions: no lesions Rashes: no rashes Neuro: General: oriented to person and oriented to place Extrem: Other: Left index finger continued swelling, and erythema from about the mid aspect of the proximal and an open wound at the tip of the finger phalanx distally with necrotic tissue present. Exposed bone protruding through the tip of the digit, and this appears to be a chronic situation. The finger is held in a flexed position at the PIP joint. Psych: Affect: normal affect Attitude: cooperative Procedures Date of Service Date of Service: 09/16/22 Progress Note: A&P Assessment and plan (1) Finger infection: Status: Acute Assessment and Plan: Continue IV abx Monitor for any worsening erythema, edema or pain. Plan to bring to the OR once medically cleared for index finger amputation Pain management as needed (2) Cardiomyopathy: Status: Acute (3) CKD (chronic kidney disease) stage 5, GFR less than 15 ml/min: Status: Acute (4) Non-ST elevated myocardial infarction: Status: Acute (5) Acute congestive heart failure: Status: Acute Time Spent With Patient Time: Total time managing care of this patient today ____ minutes. Quality Stroke Does the patient have a stroke diagnosis?: No VTE Prior VTE?: No VTE Risk Level:: Medical - moderate - high VTE Device Contraindication: Treatment Not Indicated VTE Drug Contraindication: N/A - Med Ordered
[2022-09-16] MEDS: amLODIPine Besylate 10 MG TABLET PO (09:01)
[2022-09-16] MEDS: Insulin Glargine,Hum.rec.anlog 100 UNIT/ML 10 ML VIAL 18 UNIT SUBCUT (09:01)
[2022-09-16] MEDS: Magnesium Oxide 400 MG TABLET PO ×2 (09:01→19:44)
[2022-09-16] MEDS: Calcium + Vitamin D 250 MG TABLET PO ×2 (09:02→19:43)
[2022-09-16] MEDS: Sodium Bicarbonate 650 MG TABLET PO ×2 (09:02→19:43)
[2022-09-16] MEDS: Sertraline HCL 50 MG TABLET PO (09:02)
[2022-09-16] MEDS: Clopidogrel Bisulfate 75 MG TABLET PO (09:02)
[2022-09-16] MEDS: carvediloL 6.25 MG TABLET PO ×2 (09:02→19:43)
[2022-09-16] MEDS: Furosemide 40 MG TABLET PO ×2 (09:02→16:28)
--- NOTE | 2022-09-16 10:32 | P.PNCA_ITS ---
Subjective Subjective Date of Service: 09/16/22 Interval history: Denies any chest pain or cardiac complaints. Review of Systems Review of Systems Yes all other systems are reviewed and are negative Constitutional: Reports as per HPI Eyes: Reports as per HPI Reports as per HPI Cardiovascular: Reports as per HPI, Denies acrocyanosis, Denies cool extremi ties, Denies chest pain, Denies leg edema, Denies lightheadedness, Denies palpitations and Denies dyspnea Respiratory: Reports as per HPI, Reports no additional respiratory complaints and Denies dyspnea Gastrointestinal: Reports as per HPI and Reports no additional gastrointestinal complaints Musculoskeletal: Reports no additional musculoskeletal complaints and Reports as per HPI Skin/Breast: Reports system reviewed and no additional complaints, except as docu Reports system reviewed and no additional complaints, except as documented and Reports as per HPI Psychiatric: Reports no additional psychiatric complaints and Reports as per HPI Endocrine: Reports no additional endocrine complaints, Reports as per HPI and Denies palpitations Hematologic/Lymphatic: Reports no additional hematologic/lymphatic complaints and Reports as per HPI Allergic/Immunologic: Reports no additional allergic/immunologic complaints and Reports as per HPI Physical Exam Vital Signs: Last Vital Signs Temp 98.1 F 09/16/22 07:30 Pulse 75 09/16/22 07:30 Resp 18 09/16/22 07:30 BP 146/71 H 09/16/22 07:30 Pulse Ox 94 09/16/22 07:30 O2 Del Method 09/16/22 07:30 O2 Flow Rate 2 09/16/22 07:30 Oxygen Flow Rate 2 09/14/22 17:05 BMI result Body Mass Index 37.3 Const General: comfortable, no acute distress, ill appearing and tired appearing Orientation/consciousness: patient oriented x3 HEENT Other: Unremarkable Head: Yes normal to inspection Neck Neck: Yes normal visual inspection Chest Chest palpation & inspection: normal inspection of the chest Resp Auscultation: clear to auscultation bilaterally Cardio Palpation: normal PMI Heart sounds: S1 normal heart sound present, S2 normal heart sound present, no gallops, no murmurs and no rubs GI Palpation (GI): Soft to palpation Back/Spine/Pelvis Other: unremarkable Skin General skin exam: no rashes or lesions noted Neuro General: patient oriented x3 Extrem Other: Amputation of fingers on left hand with necrotic changes. Left below-knee amputation Psych Mental Status: mental status grossly normal Objective Labs and Meds Result diagrams: 12/16/22 06:14 09/16/22 06:14 Lab results: Laboratory Results - last 24 hr 09/15/22 09/15/22 09/15/22 05:25 05:25 11:56 WBC RBC Hgb Hct MCV MCH MCHC RDW Plt Count MPV Absolute Nucleated RBC Nucleated RBC % (auto) aPTT Heparin Protocol 54.7 Sodium Potassium Chloride Carbon Dioxide Anion Gap BUN Creatinine Estim Creat Clear Calc Estimated GFR POC Glucose Random Glucose Calcium Phosphorus Iron 18 L TIBC 199 L % Saturation 9 L Unsat Iron Binding 181 Ferritin 300 H Vitamin B12 393 Folate 9.5 Blood Type Antibody Screen Crossmatch 09/15/22 09/15/22 09/15/22 12:22 15:30 16:55 WBC RBC Hgb 7.1 L Hct 22.1 L MCV MCH MCHC RDW Plt Count MPV Absolute Nucleated RBC Nucleated RBC % (auto) aPTT Heparin Protocol Sodium Potassium Chloride Carbon Dioxide Anion Gap BUN Creatinine Estim Creat Clear Calc Estimated GFR POC Glucose 156 H 108 Random Glucose Calcium Phosphorus Iron TIBC % Saturation Unsat Iron Binding Ferritin Vitamin B12 Folate Blood Type Antibody Screen Crossmatch 09/15/22 09/15/22 09/16/22 18:21 19:51 06:14 WBC RBC Hgb Hct MCV MCH MCHC RDW Plt Count MPV Absolute Nucleated RBC Nucleated RBC % (auto) aPTT Heparin Protocol Sodium Potassium Chloride Carbon Dioxide Anion Gap BUN Creatinine Estim Creat Clear Calc Estimated GFR POC Glucose 108 Random Glucose Calcium Phosphorus 4.2 Iron TIBC % Saturation Unsat Iron Binding Ferritin Vitamin B12 Folate Blood Type B Positive Antibody Screen NEGATIVE Crossmatch See Detail 09/16/22 09/16/22 09/16/22 06:14 06:14 06:14 WBC 12.2 H RBC 2.94 L Hgb 7.9 L Hct 24.5 L MCV 83.3 MCH 26.9 L MCHC 32.2 RDW 14.2 Plt Count 176 MPV 11.0 Absolute Nucleated RBC 0.000 Nucleated RBC % (auto) 0.0 aPTT Heparin Protocol 60.5 Sodium Potassium Chloride Carbon Dioxide Anion Gap BUN Creatinine 3.63 H Estim Creat Clear Calc 13.1 Estimated GFR 12 POC Glucose Random Glucose Calcium Phosphorus Iron TIBC % Saturation Unsat Iron Binding Ferritin Vitamin B12 Folate Blood Type Antibody Screen Crossmatch 09/16/22 09/16/22 06:14 07:34 WBC RBC Hgb Hct MCV MCH MCHC RDW Plt Count MPV Absolute Nucleated RBC Nucleated RBC % (auto) aPTT Heparin Protocol Sodium 138 Potassium 3.9 Chloride 107 Carbon Dioxide 18 L Anion Gap 17 BUN 62 H Creatinine 3.62 H Estim Creat Clear Calc 13.2 Estimated GFR 12 POC Glucose 79 Random Glucose 83 Calcium 8.1 L Phosphorus Iron TIBC % Saturation Unsat Iron Binding Ferritin Vitamin B12 Folate Blood Type Antibody Screen Crossmatch Imaging Radiologist's impression: Impressions Hand X-Ray 09/14/22 17:58 IMPRESSION: 1. No radiographic evidence for osteomyelitis. 2. 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 Duplex Scan Upper Extremity Artery 09/14/22 23:03 IMPRESSION: There is no evidence of any hemodynamically significant upper extremity arterial disease by waveform or duplex Doppler criteria at rest. Progress Note: A&P Assessment and plan (1) Non-ST elevated myocardial infarction: Status: Acute (2) Cardiomyopathy: Status: Acute Plan Last echocardiogram with mild to moderately reduced LVEF at 40-45%. Moderate to severely decreased right ventricular systolic function. In the repeat study, LVEF 32%. [id number] aortic stenosis. Mild mitral regurgitation moderate to severe pulmonary hypertension. Myocardial perfusion imaging study from 2020-normal perfusion; LVEF 35%. Troponin trend noted. Levels include 335, 353, 405 and 521. Elevated BUN creatinine at 67 and 3.6. She is also anemic at 7.2. Overall, non ST-elevation myocardial infarction in setting of finger cellulitis. Recommend medical management with IV heparin for 48 hours, aspirin, statins. Considering the extent of her comorbidities including renal failure, anemia, she is not a good candidate for cardiac catheterization. 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 Time Spent With Patient Time: Total time managing care of this patient today 38 minutes. Progress Note: Quality Stroke Does the patient have a stroke diagnosis?: No Procedures Date of Service Date of Service: 09/16/22
--- NOTE | 2022-09-16 11:02 | P.CDIC_ITS ---
CDI Concurrent Query Documentation Clarification: PHYSICIAN'S DOCUMENTATION REQUEST Date of Query: 09/16/22 1102 Patient Name: Debbie Guerra Admit Date: 09/15/22 Dear Doctor, A review of the medical record indicates additional documentation may be needed. Please review below and update the documentation accordingly. Risk Factors/Clinical Indicators/Treatments BMI 37.4 4' 10 in height 81.1kg If possible, please provide an associated diagnosis related to the abnormal BMI, such as: For a BMI >= 35: * Overweight * Obesity * Due to excess calories * Drug induced * Due to other cause * Severe or Morbid Obesity * With alveolar hypoventilation * Without alveolar hypoventilation Use of terms such as suspected, likely, concern for, or probable (associated with a specific diagnosis that is being evaluated, monitored, or treated as if it exists) are acceptable and can be coded in the inpatient setting, when documented at the time of discharge. Thank you, Kylie Alonso [facility], CDIS Extension: [phone] Please use your independent medical judgment in providing your response. THIS QUERY IS PART OF THE PERMANENT MEDICAL RECORD Provider Response: Other Other Diagnosis: morbid obesity
[2022-09-16 11:27] LABS: Glucose, Whole Blood 202 mg/dL (60-115)
--- NOTE | 2022-09-16 11:33 | MHC.CM.PN ---
per rounds pt will be here over the weekend , to have amp of toes on monday
[2022-09-16] MEDS: Insulin Lispro 100 UNIT/ML 3 ML VIAL SUBCUT ×2 (12:06→19:44)
--- NOTE | 2022-09-16 14:29 | P.PNIM_ITS ---
Subjective Subjective Date of Service: 09/16/22 Interval History: nstemi,cellulitis Review of Systems Denies any chest pain or shortness of breath or abdominal pain or no finger pain either No fever or chills Physical Exam Vital Signs: Vital Signs: Last Vital Signs Temp 98.1 F 09/16/22 11:26 Pulse 78 09/16/22 11:26 Resp 17 09/16/22 11:26 BP 142/64 H 09/16/22 11:26 Pulse Ox 95 09/16/22 11:26 O2 Del Method 09/16/22 11:26 O2 Flow Rate 2 09/16/22 11:26 Oxygen Flow Rate 2 09/14/22 17:05 BMI result Body Mass Index 37.3 Appearance: Alert.? Oriented X3.? not in distress.? cvs: rrr, [id number] . res: clear to auscultation ,no rhonchii or wheezing abd: no rebound or guarding ,nt, bs present. 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 neuro: axo3 , nonfocal. Objective Data Active Medications Acetaminophen (Acetaminophen 325 Mg Tablet) 650 mg PO Q6H PRN PRN Reason: Pain, Mild (Pain Scale 1-3) Last Admin: 09/15/22 15:30 Dose: 650 mg Documented By: LISA Albuterol/Ipratropium (Albuterol/Iprat 2.5/0.5mg 3 Ml Ampul.Neb) 3 ml INHALE RQ4H PRN PRN Reason: Wheezing Amlodipine Besylate (Amlodipine Besylate 10 Mg Tablet) 10 mg PO DAILY [facility]; Protocol Last Admin: 09/16/22 09:01 Dose: 10 mg Documented By: LISA Aspirin (Aspirin Enteric Coated 81 Mg Tablet.) 81 mg PO BEDTIME [facility] Last Admin: 09/15/22 20:05 Dose: 81 mg Documented By: LESLEY Atorvastatin Calcium (Atorvastatin Calcium 80 Mg Tablet) 80 mg PO BEDTIME [facility] Last Admin: 09/15/22 20:05 Dose: 80 mg Documented By: LESLEY Calcium Carbonate/Cholecalciferol (Calcium + Vitamin D 250 Mg Tablet) 250 mg PO BID [facility] Last Admin: 09/16/22 09:02 Dose: 250 mg Documented By: LISA Carvedilol (Carvedilol 6.25 Mg Tablet) 6.25 mg PO BID [facility]; Protocol Last Admin: 09/16/22 09:02 Dose: 6.25 mg Documented By: LISA Clopidogrel Bisulfate (Clopidogrel Bisulfate 75 Mg Tablet) 75 mg PO DAILY [facility] Last Admin: 09/16/22 09:02 Dose: 75 mg Documented By: LISA Dextrose (Dextrose 50 % 25 Gm/50 Ml Syringe) 25 gm IVPUSH Q15M PRN; Protocol PRN Reason: per Hypoglycemia Standing Ord. Docusate Sodium (Docusate Sodium 100 Mg Capsule) 100 mg PO DAILY PRN PRN Reason: Constipation Famotidine (Famotidine 20 Mg Tablet) 20 mg PO Q2D@0900 [facility] Last Admin: 09/15/22 09:03 Dose: 20 mg Documented By: SANDOVAL Furosemide (Furosemide 40 Mg Tablet) 40 mg PO BIDWM [facility]; Protocol Last Admin: 09/16/22 09:02 Dose: 40 mg Documented By: LISA Glucose (Glucose Gel 15 Gm Gel..Gram.) 15 gm PO Q15M PRN; Protocol PRN Reason: per Hypoglycemia Standing Ord. Heparin Sodium (Porcine) (Heparin Sodium,Porcine 5,000 Unit/Ml Vial) 3,200 unit 40 unit/kg (3200 unit) IVPUSH PROTOCOL BOLUS PRN; Protocol PRN Reason: 40 unit/kg - Heparin Protocol Heparin Sodium (Porcine) (Heparin Sodium,Porcine 5,000 Unit/Ml Vial) 6,500 unit 80 unit/kg (6500 unit) IVPUSH PROTOCOL BOLUS PRN; Protocol PRN Reason: 80 unit/kg - Heparin Protocol Heparin Sodium/Sodium Chloride (Heparin Sodium,Porcine/1/2ns) 25,000 unit in 250 mls @ 0 mls/hr IVCONT .Q0M [facility]; Protocol Stop: 09/16/22 22:50 Last Titration: 09/16/22 09:07 Dose: 12 units/kg/hr, 9.73 mls/hr Documented By: LISA Co-signed By: SARA Vancomycin HCl 750 mg/ Sodium (Chloride) 265 mls @ 265 mls/hr IV Q48H [facility] Piperacillin Sod/Tazobactam (Sod 2.25 gm/ Sodium Chloride) 50 mls @ 100 mls/hr IV Q6H [facility] Last Infusion: 09/16/22 09:59 Dose: 0 mls/hr Documented By: LISA Insulin Glargine (Insulin Glargine,Hum.Rec.Anlog 100 Unit/Ml 10 Ml Vial) 18 unit SUBCUT DAILY [facility] Last Admin: 09/16/22 09:01 Dose: 18 unit Documented By: LISA Insulin Human Lispro (Insulin Lispro 100 Unit/Ml 3 Ml Vial) 0 unit SUBCUT QIDACHS [facility]; Protocol Last Admin: 09/16/22 12:06 Dose: 4 unit Documented By: LISA Magnesium Oxide (Magnesium Oxide 400 Mg Tablet) 400 mg PO BID [facility] Last Admin: 09/16/22 09:01 Dose: 400 mg Documented By: LISA Ondansetron HCl (Ondansetron Hcl 4 Mg/2 Ml Vial) 4 mg IVPUSH Q8H PRN PRN Reason: Nausea and Vomiting Pantoprazole Sodium (Pantoprazole Sodium 40 Mg/10 Ml Vial) 40 mg IVPUSH BID@0630,1630 [facility] Last Admin: 09/16/22 05:54 Dose: 40 mg Documented By: LESLEY Pharmacy Consult (Consult Rx Vancomycin Dosing) 1 each MISCELLANE DAILY PRN PRN Reason: Consult order Sertraline HCl (Sertraline Hcl 50 Mg Tablet) 50 mg PO DAILY [facility] Last Admin: 09/16/22 09:02 Dose: 50 mg Documented By: LISA Sodium Bicarbonate (Sodium Bicarbonate 650 Mg Tablet) 650 mg PO BID [facility] Last Admin: 09/16/22 09:02 Dose: 650 mg Documented By: LISA Sodium Polystyrene Sulfonate (Sodium Polystyrene Sulfon/Sorb 15 Gm/60 Ml Oral.Susp) 15 gm PO DAILY [facility] Last Admin: 09/16/22 09:29 Dose: Not Given Documented By: LISA Non-Admin Reason: Physician Held Med Trazodone HCl (Trazodone Hcl 50 Mg Tablet) 50 mg PO BEDTIME [facility] Last Admin: 09/15/22 20:05 Dose: 50 mg Documented By: LESLEY Labs CBC & Chem 7: 09/16/22 06:14 09/16/22 06:14 Labs: Laboratory Results - last 24 hr 09/15/22 09/15/22 09/15/22 15:30 18:21 19:51 MCV MCH MCHC RDW Plt Count MPV Absolute Nucleated RBC Nucleated RBC % (auto) aPTT Heparin Protocol Anion Gap Estim Creat Clear Calc Estimated GFR POC Glucose 108 108 Random Glucose Calcium Phosphorus Blood Type B Positive Antibody Screen NEGATIVE Crossmatch See Detail 09/16/22 09/16/22 09/16/22 06:14 06:14 06:14 MCV MCH MCHC RDW Plt Count MPV Absolute Nucleated RBC Nucleated RBC % (auto) aPTT Heparin Protocol 60.5 Anion Gap Estim Creat Clear Calc 13.1 Estimated GFR 12 POC Glucose Random Glucose Calcium Phosphorus 4.2 Blood Type Antibody Screen Crossmatch 09/16/22 09/16/22 09/16/22 06:14 06:14 07:34 MCV 83.3 MCH 26.9 L MCHC 32.2 RDW 14.2 Plt Count 176 MPV 11.0 Absolute Nucleated RBC 0.000 Nucleated RBC % (auto) 0.0 aPTT Heparin Protocol Anion Gap 17 Estim Creat Clear Calc 13.2 Estimated GFR 12 POC Glucose 79 Random Glucose 83 Calcium 8.1 L Phosphorus Blood Type Antibody Screen Crossmatch 09/16/22 11:23 MCV MCH MCHC RDW Plt Count MPV Absolute Nucleated RBC Nucleated RBC % (auto) aPTT Heparin Protocol Anion Gap Estim Creat Clear Calc Estimated GFR POC Glucose 202 H Random Glucose Calcium Phosphorus Blood Type Antibody Screen Crossmatch Microbiology Microbiology Results: Microbiology 09/14/22 17:47 Blood Culture - Preliminary Blood - Venous No growth after 24 hours. 09/14/22 17:37 Blood Culture - Preliminary Blood - Venous No growth after 24 hours. Assessment and Plan (1) Finger infection: Status: Acute (2) Non-ST elevated myocardial infarction: Status: Acute (3) Normocytic anemia: Status: Acute (4) CKD (chronic kidney disease) stage 5, GFR less than 15 ml/min: Status: Acute Plan 67-year-old female with past medical history as mentioned above presents to the hospital with infected left finger #? cellulitis of left index finger with possible necrotic tissue -? arterial duplex negative,ESR 121 and CRP:6. -? will treat with IV antibiotics-on vanco/zosyn, follow blood cultures -? general surgery consult for possible debridement #? NSTEMI -? elevated troponin -? no EKG changes suggestive of? ACS -? given the significant elevation troponin, patient started on heparin drip in the ED -? echocardiogram CKD, elevated troponin, anemic, has NSTEMI in the setting of finger cellulitis: Cardiology recommended-She is a poor candidate for invasive management.? At this time, recommend 48 hours IV heparin, aspirin, high-dose statins.? Also on beta- blockers. #? normocytic anemia received 2 prbc :7.9/24.5 -? unclear etiology -? was evaluated in the past for the same, at that time patient underwent EGD which showed? dysphagia, rows of gastritis, and duodenitis, -? guaiac negative for any blood anemia workup, tranfuse1 prbc Protonix 40 IV b.i.d. given heparin drip -? monitor for bleed -? follow CBC #? hypertension -? stable -? continue home antihypertensives #? diabetes -? low-dose sliding scale as -? diabetic diet ckd stage 4-5 /anemia moniter h/h anemia workup nephro eval ?DVT prophylaxis:? Heparin GGT ?given patient's need for IV antibiotics for cellulitis and as well as management and further evaluation of her NSTEMI including tele monitering,iv heparin. Time Spent With Patient Time: Total time managing care of this patient today ____ minutes. Quality Stroke Does the patient have a stroke diagnosis?: No VTE Prior VTE?: No VTE Risk Level:: Medical - moderate - high VTE Device Contraindication: Treatment Not Indicated VTE Drug Contraindication: N/A - Med Ordered
[2022-09-16 16:12] LABS: Glucose, Whole Blood 124 mg/dL (60-115)
--- NOTE | 2022-09-16 16:14 | PM.PNNEP ---
Subjective Subjective Date of Service: 09/16/22 Interval history: Seen and examined, events noted Physical Exam Vital Signs: Vital Signs: Last Vital Signs Temp 98.1 F 09/16/22 11:26 Pulse 78 09/16/22 11:26 Resp 17 09/16/22 11:26 BP 142/64 H 09/16/22 11:26 Pulse Ox 95 09/16/22 11:26 O2 Del Method 09/16/22 11:26 O2 Flow Rate 2 09/16/22 11:26 Oxygen Flow Rate 2 09/14/22 17:05 BMI result Body Mass Index 37.3 Const: Other: patient is alert and oriented to self and place and answers questions appropriately General: cooperative, healthy appearing, comfortable, no acute distress, ill appearing and tired appearing Nutritional Appearance: well nourished Orientation/consciousness: oriented to person, oriented to place and patient oriented x3 HEENT: Other: Unremarkable Head: Yes normal to inspection, Yes normocephalic and Yes atraumatic Eyes: General: appearance normal, both eyes and all related structures EOM: EOMs intact bilaterally Neck: Neck: Yes normal visual inspection Chest: Chest palpation & inspection: normal inspection of the chest Resp: Other: Clear and equal bilaterally without wheezes rales or rhonchi but it is diminished throughout Effort & Inspection: normal respiratory effort, able to speak in complete sentences, no audible wheezes, no cough and no respiratory distress Auscultation: clear to auscultation bilaterally Cardio: Other: Regular rate and rhythm without murmurs rubs or gallops Palpation: normal PMI Rate: regular rate Rhythm: regular rhythm Heart sounds: S1 normal heart sound present, S2 normal heart sound present, no gallops, no murmurs and no rubs Peripheral pulses: Peripheral pulses 2+ throughout GI: Other: Abdomen is soft nontender nondistended Inspection: Yes normal to inspection Palpation (GI): Soft to palpation Auscultation: normal bowel sounds Back/Spine/Pelvis: Other: unremarkable Skin: Other: Warm, dry, no rashes General skin exam: no rashes or lesions noted and turgor normal Lesions: no lesions Rashes: no rashes Neuro: Other: Nonfocal neuro exam General: oriented to person, oriented to place and patient oriented x3 Extrem: Other: Amputation of fingers on left hand with necrotic changes. Left below-knee amputation General: Yes no pedal edema Psych: Mental Status: mental status grossly normal Affect: normal affect Attitude: cooperative Objective Data Labs CBC & Chem 7: 09/16/22 06:14 09/16/22 06:14 Labs: Laboratory Results - last 24 hr 09/15/22 09/15/22 09/15/22 16:55 18:21 19:51 WBC RBC Hgb 7.1 L Hct 22.1 L MCV MCH MCHC RDW Plt Count MPV Absolute Nucleated RBC Nucleated RBC % (auto) aPTT Heparin Protocol Sodium Potassium Chloride Carbon Dioxide Anion Gap BUN Creatinine Estim Creat Clear Calc Estimated GFR POC Glucose 108 Random Glucose Calcium Phosphorus Blood Type B Positive Antibody Screen NEGATIVE Crossmatch See Detail 09/16/22 09/16/22 09/16/22 06:14 06:14 06:14 WBC RBC Hgb Hct MCV MCH MCHC RDW Plt Count MPV Absolute Nucleated RBC Nucleated RBC % (auto) aPTT Heparin Protocol 60.5 Sodium Potassium Chloride Carbon Dioxide Anion Gap BUN Creatinine 3.63 H Estim Creat Clear Calc 13.1 Estimated GFR 12 POC Glucose Random Glucose Calcium Phosphorus 4.2 Blood Type Antibody Screen Crossmatch 09/16/22 09/16/22 09/16/22 06:14 06:14 07:34 WBC 12.2 H RBC 2.94 L Hgb 7.9 L Hct 24.5 L MCV 83.3 MCH 26.9 L MCHC 32.2 RDW 14.2 Plt Count 176 MPV 11.0 Absolute Nucleated RBC 0.000 Nucleated RBC % (auto) 0.0 aPTT Heparin Protocol Sodium 138 Potassium 3.9 Chloride 107 Carbon Dioxide 18 L Anion Gap 17 BUN 62 H Creatinine 3.62 H Estim Creat Clear Calc 13.2 Estimated GFR 12 POC Glucose 79 Random Glucose 83 Calcium 8.1 L Phosphorus Blood Type Antibody Screen Crossmatch 09/16/22 09/16/22 11:23 16:02 WBC RBC Hgb Hct MCV MCH MCHC RDW Plt Count MPV Absolute Nucleated RBC Nucleated RBC % (auto) aPTT Heparin Protocol Sodium Potassium Chloride Carbon Dioxide Anion Gap BUN Creatinine Estim Creat Clear Calc Estimated GFR POC Glucose 202 H 124 H Random Glucose Calcium Phosphorus Blood Type Antibody Screen Crossmatch Microbiology Microbiology Results: Microbiology 09/14/22 17:47 Blood - Venous Blood Culture - Preliminary No growth after 24 hours. 09/14/22 17:37 Blood - Venous Blood Culture - Preliminary No growth after 24 hours. 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 Time Spent With Patient Time: Total time managing care of this patient today ____ minutes. Progress Note: Quality Stroke Does the patient have a stroke diagnosis?: No
[2022-09-16] MEDS: Aspirin Enteric Coated 81 MG TABLET.DR PO (19:43)
[2022-09-16] MEDS: Atorvastatin Calcium 80 MG TABLET PO (19:43)
[2022-09-16] MEDS: vancomycin HCL 750 MG in 0.9 % Sodium Chloride 250 ML 265 MG IV (19:44)
[2022-09-16] MEDS: traZODone HCL 50 MG TABLET PO (19:44)
[2022-09-16 19:57] LABS: Glucose, Whole Blood 187 mg/dL (60-115)
[2022-09-17 00:53] LABS: CDiff Gene PCR NEGATIVE (Negative)
[2022-09-17 01:12] LABS: Leukocytes Stool Qualitative NEGATIVE (NEGATIVE)
[2022-09-17 03:26] VITALS: BP 142/58; PULSE 70; RESP 20; TEMP 36.8; O2SAT 95
[2022-09-17] MEDS: Piperacillin Sodium/Tazobactam 2.25 GM in 0.9 % Sodium Chloride 50 ML IV ×4 (05:45→21:39)
[2022-09-17] MEDS: Pantoprazole Sodium 40 MG/10 ML VIAL IVPUSH (05:45)
[2022-09-17 07:20] VITALS: BP 145/73; PULSE 70; RESP 12; TEMP 36.3; O2SAT 95
[2022-09-17 07:43] LABS: PTT Heparin Drip 26.4 SEC (53-77.9)
[2022-09-17 07:51] LABS: Creatinine Clr Calc Pharmacy 12.3; Estimated Glomerular Filt Rate 12
[2022-09-17 07:55] LABS: Glucose, Whole Blood 114 mg/dL (60-115)
[2022-09-17] MEDS: Furosemide 40 MG TABLET PO ×2 (08:26→16:39)
[2022-09-17] MEDS: Calcium + Vitamin D 250 MG TABLET PO ×2 (08:26→21:39)
[2022-09-17] MEDS: Omeprazole 20 MG CAPSULE.DR PO ×2 (08:26→16:39)
[2022-09-17] MEDS: Famotidine 20 MG TABLET PO (08:26)
[2022-09-17] MEDS: Sertraline HCL 50 MG TABLET PO (08:26)
[2022-09-17] MEDS: Insulin Glargine,Hum.rec.anlog 100 UNIT/ML 10 ML VIAL 18 UNIT SUBCUT (08:26)
[2022-09-17] MEDS: Magnesium Oxide 400 MG TABLET PO (08:26)
[2022-09-17] MEDS: Sodium Bicarbonate 650 MG TABLET PO (08:26)
[2022-09-17] MEDS: amLODIPine Besylate 10 MG TABLET PO (08:26)
[2022-09-17] MEDS: carvediloL 6.25 MG TABLET PO ×2 (08:26→21:39)
[2022-09-17] MEDS: Clopidogrel Bisulfate 75 MG TABLET PO (08:26)
[2022-09-17] MEDS: Sodium Polystyrene Sulfon/Sorb 15 GM/60 ML ORAL.SUSP PO (08:27)
[2022-09-17 08:52] LABS: Hematocrit 25.2 % (37.0-47.0)
[2022-09-17 09:15] LABS: Anion Gap 19 (12-20); Blood Urea Nitrogen 61 mg/dL (9-16); Calcium 8.1 mg/dL (8.4-10.2); Carbon Dioxide 17 mmol/L (22-29); Chloride 106 mmol/L (96-108); Creatinine Clr Calc Pharmacy 12.2; Estimated Glomerular Filt Rate 11; Glucose Random 156 mg/dL (60-115); Potassium 4.1 mmol/L (3.3-5.1); Sodium 138 mmol/L (135-145)
--- NOTE | 2022-09-17 10:50 | MHC.CM.PN ---
EMR REVIEWED, CM MET W/HOSPITALIST WHO REPORTS PT WILL REMAIN INPT AND ANTIC FINGER AMP EARLY NEXT WEEK, SURGICAL HAS CONSULTED W/HAND SURGEON DR. GRIGGS PER NOTES. CM WILL CONT TO MONITOR D/C NEEDS.
[2022-09-17 10:58] VITALS: BP 156/87; PULSE 71; RESP 12; TEMP 36.4; O2SAT 99
--- NOTE | 2022-09-17 11:18 | HO.PM.IMPN ---
Subjective Subjective Date of Service: 09/17/22 Interval History: nstemi,cellulitis Review of Systems Denies any chest pain or shortness of breath or abdominal pain or no finger pain either No fever or chills has some diarrahe Physical Exam Vital Signs: Vital Signs: Last Vital Signs Temp 97.5 F 09/17/22 10:58 Pulse 71 09/17/22 10:58 Resp 12 09/17/22 10:58 BP 156/87 H 09/17/22 10:58 Pulse Ox 99 09/17/22 10:58 O2 Del Method 09/17/22 10:58 O2 Flow Rate 2 09/17/22 10:58 Oxygen Flow Rate 2 09/14/22 17:05 BMI result Body Mass Index 37.3 ?Appearance: Alert.? Oriented X3.? not in distress.? cvs: rrr, [id number] . res: clear to auscultation ,no rhonchii or wheezing abd: no rebound or guarding ,nt, bs present. 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 neuro: axo3 , nonfocal. Objective Data Active Medications Acetaminophen (Acetaminophen 325 Mg Tablet) 650 mg PO Q6H PRN PRN Reason: Pain, Mild (Pain Scale 1-3) Last Admin: 09/15/22 15:30 Dose: 650 mg Documented By: LISA Albuterol/Ipratropium (Albuterol/Iprat 2.5/0.5mg 3 Ml Ampul.Neb) 3 ml INHALE RQ4H PRN PRN Reason: Wheezing Amlodipine Besylate (Amlodipine Besylate 10 Mg Tablet) 10 mg PO DAILY [facility]; Protocol Last Admin: 09/17/22 08:26 Dose: 10 mg Documented By: HEDY Aspirin (Aspirin Enteric Coated 81 Mg Tablet.) 81 mg PO BEDTIME [facility] Last Admin: 09/16/22 19:43 Dose: 81 mg Documented By: ROMARIO Atorvastatin Calcium (Atorvastatin Calcium 80 Mg Tablet) 80 mg PO BEDTIME [facility] Last Admin: 09/16/22 19:43 Dose: 80 mg Documented By: ROMARIO Calcium Carbonate/Cholecalciferol (Calcium + Vitamin D 250 Mg Tablet) 250 mg PO BID [facility] Last Admin: 09/17/22 08:26 Dose: 250 mg Documented By: HEDY Carvedilol (Carvedilol 6.25 Mg Tablet) 6.25 mg PO BID [facility]; Protocol Last Admin: 09/17/22 08:26 Dose: 6.25 mg Documented By: HEDY Clopidogrel Bisulfate (Clopidogrel Bisulfate 75 Mg Tablet) 75 mg PO DAILY [facility] Last Admin: 09/17/22 08:26 Dose: 75 mg Documented By: HEDY Dextrose (Dextrose 50 % 25 Gm/50 Ml Syringe) 25 gm IVPUSH Q15M PRN; Protocol PRN Reason: per Hypoglycemia Standing Ord. Docusate Sodium (Docusate Sodium 100 Mg Capsule) 100 mg PO DAILY PRN PRN Reason: Constipation Famotidine (Famotidine 20 Mg Tablet) 20 mg PO Q2D@0900 [facility] Last Admin: 09/17/22 08:26 Dose: 20 mg Documented By: HEDY Furosemide (Furosemide 40 Mg Tablet) 40 mg PO BIDWM [facility]; Protocol Last Admin: 09/17/22 08:26 Dose: 40 mg Documented By: HEDY Glucose (Glucose Gel 15 Gm Gel..Gram.) 15 gm PO Q15M PRN; Protocol PRN Reason: per Hypoglycemia Standing Ord. Heparin Sodium (Porcine) (Heparin Sodium,Porcine 5,000 Unit/Ml Vial) 3,200 unit 40 unit/kg (3200 unit) IVPUSH PROTOCOL BOLUS PRN; Protocol PRN Reason: 40 unit/kg - Heparin Protocol Heparin Sodium (Porcine) (Heparin Sodium,Porcine 5,000 Unit/Ml Vial) 6,500 unit 80 unit/kg (6500 unit) IVPUSH PROTOCOL BOLUS PRN; Protocol PRN Reason: 80 unit/kg - Heparin Protocol Vancomycin HCl 750 mg/ Sodium (Chloride) 265 mls @ 265 mls/hr IV Q48H [facility] Last Infusion: 09/16/22 23:42 Dose: 0 mls/hr Documented By: ROMARIO Piperacillin Sod/Tazobactam (Sod 2.25 gm/ Sodium Chloride) 50 mls @ 100 mls/hr IV Q6H [facility] Last Infusion: 09/17/22 09:13 Dose: 0 mls/hr Documented By: HEDY Insulin Glargine (Insulin Glargine,Hum.Rec.Anlog 100 Unit/Ml 10 Ml Vial) 18 unit SUBCUT DAILY [facility] Last Admin: 09/17/22 08:26 Dose: 18 unit Documented By: HEDY Insulin Human Lispro (Insulin Lispro 100 Unit/Ml 3 Ml Vial) 0 unit SUBCUT QIDACHS [facility]; Protocol Last Admin: 09/17/22 08:12 Dose: Not Given Documented By: HEDY Non-Admin Reason: No Insulin Coverage Magnesium Oxide (Magnesium Oxide 400 Mg Tablet) 400 mg PO BID [facility] Last Admin: 09/17/22 08:26 Dose: 400 mg Documented By: HEDY Omeprazole (Omeprazole 20 Mg Capsule.Dr) 20 mg PO BID@0630,1630 [facility] Last Admin: 09/17/22 08:26 Dose: 20 mg Documented By: HEDY Ondansetron HCl (Ondansetron Hcl 4 Mg/2 Ml Vial) 4 mg IVPUSH Q8H PRN PRN Reason: Nausea and Vomiting Pharmacy Consult (Consult Rx Vancomycin Dosing) 1 each MISCELLANE DAILY PRN PRN Reason: Consult order Sertraline HCl (Sertraline Hcl 50 Mg Tablet) 50 mg PO DAILY [facility] Last Admin: 09/17/22 08:26 Dose: 50 mg Documented By: HEDY Sodium Bicarbonate (Sodium Bicarbonate 650 Mg Tablet) 650 mg PO BID [facility] Last Admin: 09/17/22 08:26 Dose: 650 mg Documented By: HEDY Sodium Polystyrene Sulfonate (Sodium Polystyrene Sulfon/Sorb 15 Gm/60 Ml Oral.Susp) 15 gm PO DAILY [facility] Last Admin: 09/17/22 08:27 Dose: 15 gm Documented By: HEDY Trazodone HCl (Trazodone Hcl 50 Mg Tablet) 50 mg PO BEDTIME [facility] Last Admin: 09/16/22 19:44 Dose: 50 mg Documented By: ROMARIO Labs CBC & Chem 7: 09/17/22 08:24 09/17/22 08:24 Labs: Laboratory Results - last 24 hr 09/16/22 09/16/22 09/16/22 11:23 16:02 16:28 aPTT Heparin Protocol Anion Gap Estim Creat Clear Calc Estimated GFR POC Glucose 202 H 124 H Random Glucose Calcium Stool Leukocytes, Qual Random Vancomycin 14.0 L C. difficile Tox B Gene 09/16/22 09/16/22 09/16/22 19:34 23:20 23:20 aPTT Heparin Protocol Anion Gap Estim Creat Clear Calc Estimated GFR POC Glucose 187 H Random Glucose Calcium Stool Leukocytes, Qual NEGATIVE Random Vancomycin C. difficile Tox B Gene NEGATIVE 09/17/22 09/17/22 09/17/22 06:41 06:41 07:18 aPTT Heparin Protocol 26.4 L D Anion Gap Estim Creat Clear Calc 12.3 Estimated GFR 12 POC Glucose 114 Random Glucose Calcium Stool Leukocytes, Qual Random Vancomycin C. difficile Tox B Gene 09/17/22 08:24 aPTT Heparin Protocol Anion Gap 19 Estim Creat Clear Calc 12.2 Estimated GFR 11 POC Glucose Random Glucose 156 H Calcium 8.1 L Stool Leukocytes, Qual Random Vancomycin C. difficile Tox B Gene Microbiology Microbiology Results: Microbiology 09/14/22 17:47 Blood Culture - Preliminary Blood - Venous No growth after 48 hours. 09/14/22 17:37 Blood Culture - Preliminary Blood - Venous No growth after 48 hours. Assessment and Plan (1) CKD (chronic kidney disease) stage 5, GFR less than 15 ml/min: Status: Acute (2) Finger infection: Status: Acute (3) Diarrhea: Status: Acute Plan 67-year-old female with past medical history as mentioned above presents to the hospital with infected left finger #? cellulitis of left index finger? with possible? necrotic tissue -? arterial duplex negative,ESR 121 and CRP:6. -? will treat with IV antibiotics-on vanco/zosyn, blood? cultures neg@48hrs -? general surgery consult for possible debridement #? NSTEMI -? elevated troponin -? no EKG changes suggestive of? ACS -? given the significant elevation troponin, patient started on heparin drip in the ED -? echocardiogram CKD, elevated troponin, anemic, has NSTEMI in the setting of finger cellulitis:? Cardiology recommended-She is a poor candidate for invasive management.? At this time, completed 48 hours IV heparin, aspirin, high-dose statins.? Also on beta-blockers. #? normocytic anemia received 2 prbc :05/25.5 -? unclear etiology -? was evaluated in the past for the same, at that time patient underwent EGD which showed? dysphagia, rows of gastritis, and duodenitis, -? guaiac negative for any blood anemia workup-iron,iron sats,tibc low, ferritin normal-possible aocd +iron def, tranfuse2 prbc ?switch to po ppi sinceoff heprin drip,added iron #? hypertension -? stable -? continue home antihypertensives #? diabetes -? low-dose sliding scale as -? diabetic diet ckd stage 5 /anemia moniter h/h anemia workup nephro eval diarrhae: c diff ,stool wbc neg gi panel need to send yet Diarrhea possibly related to laxative, magnesium and Kayexalate use: Will hold these medications, added Imodium ?DVT prophylaxis:? Heparin GGT inpatient need:?given patient's need for IV antibiotics for cellulitis -need possible finger amputation . Time Spent With Patient Time: Total time managing care of this patient today ____ minutes. Quality Stroke Does the patient have a stroke diagnosis?: No VTE Prior VTE?: No VTE Risk Level:: Medical - moderate - high VTE Device Contraindication: Treatment Not Indicated VTE Drug Contraindication: N/A - Med Ordered
[2022-09-17 11:29] LABS: Glucose, Whole Blood 190 mg/dL (60-115)
[2022-09-17] MEDS: Insulin Lispro 100 UNIT/ML 3 ML VIAL SUBCUT ×3 (12:13→21:46)
--- NOTE | 2022-09-17 15:04 | PM.PNNEP ---
Subjective Subjective Date of Service: 09/17/22 Interval history: seen and examined, events noted Physical Exam Vital Signs: Vital Signs: Last Vital Signs Temp 97.5 F 09/17/22 10:58 Pulse 71 09/17/22 10:58 Resp 12 09/17/22 10:58 BP 156/87 H 09/17/22 10:58 Pulse Ox 99 09/17/22 10:58 O2 Del Method 09/17/22 10:58 O2 Flow Rate 2 09/17/22 10:58 Oxygen Flow Rate 2 09/14/22 17:05 BMI result Body Mass Index 37.3 Const: Other: patient is alert and oriented to self and place and answers questions appropriately General: cooperative, healthy appearing, comfortable, no acute distress, ill appearing and tired appearing Nutritional Appearance: well nourished Orientation/consciousness: oriented to person, oriented to place and patient oriented x3 HEENT: Other: Unremarkable Head: Yes normal to inspection, Yes normocephalic and Yes atraumatic Eyes: General: appearance normal, both eyes and all related structures EOM: EOMs intact bilaterally Neck: Neck: Yes normal visual inspection Chest: Chest palpation & inspection: normal inspection of the chest Resp: Other: Clear and equal bilaterally without wheezes rales or rhonchi but it is diminished throughout Effort & Inspection: normal respiratory effort, able to speak in complete sentences, no audible wheezes, no cough and no respiratory distress Auscultation: clear to auscultation bilaterally Cardio: Other: Regular rate and rhythm without murmurs rubs or gallops Palpation: normal PMI Rate: regular rate Rhythm: regular rhythm Heart sounds: S1 normal heart sound present, S2 normal heart sound present, no gallops, no murmurs and no rubs Peripheral pulses: Peripheral pulses 2+ throughout GI: Other: Abdomen is soft nontender nondistended Inspection: Yes normal to inspection Palpation (GI): Soft to palpation Auscultation: normal bowel sounds Back/Spine/Pelvis: Other: unremarkable Skin: Other: Warm, dry, no rashes General skin exam: no rashes or lesions noted and turgor normal Lesions: no lesions Rashes: no rashes Neuro: Other: Nonfocal neuro exam General: oriented to person, oriented to place and patient oriented x3 Extrem: Other: Amputation of fingers on left hand with necrotic changes. Left below-knee amputation General: Yes no pedal edema Psych: Mental Status: mental status grossly normal Affect: normal affect Attitude: cooperative Objective Data Labs CBC & Chem 7: 09/17/22 08:24 09/17/22 08:24 Labs: Laboratory Results - last 24 hr 09/16/22 09/16/22 09/16/22 16:02 16:28 19:34 Hgb Hct aPTT Heparin Protocol Sodium Potassium Chloride Carbon Dioxide Anion Gap BUN Creatinine Estim Creat Clear Calc Estimated GFR POC Glucose 124 H 187 H Random Glucose Calcium Stool Leukocytes, Qual Random Vancomycin 14.0 L C. difficile Tox B Gene 09/16/22 09/16/22 09/17/22 23:20 23:20 06:41 Hgb Hct aPTT Heparin Protocol 26.4 L D Sodium Potassium Chloride Carbon Dioxide Anion Gap BUN Creatinine Estim Creat Clear Calc Estimated GFR POC Glucose Random Glucose Calcium Stool Leukocytes, Qual NEGATIVE Random Vancomycin C. difficile Tox B Gene NEGATIVE 09/17/22 09/17/22 09/17/22 06:41 07:18 08:24 Hgb 8.0 L Hct 25.2 L aPTT Heparin Protocol Sodium Potassium Chloride Carbon Dioxide Anion Gap BUN Creatinine 3.87 H Estim Creat Clear Calc 12.3 Estimated GFR 12 POC Glucose 114 Random Glucose Calcium Stool Leukocytes, Qual Random Vancomycin C. difficile Tox B Gene 09/17/22 09/17/22 08:24 10:57 Hgb Hct aPTT Heparin Protocol Sodium 138 Potassium 4.1 Chloride 106 Carbon Dioxide 17 L Anion Gap 19 BUN 61 H Creatinine 3.89 H Estim Creat Clear Calc 12.2 Estimated GFR 11 POC Glucose 190 H Random Glucose 156 H Calcium 8.1 L Stool Leukocytes, Qual Random Vancomycin C. difficile Tox B Gene Microbiology Microbiology Results: Microbiology 09/14/22 17:47 Blood - Venous Blood Culture - Preliminary No growth after 48 hours. 09/14/22 17:37 Blood - Venous Blood Culture - Preliminary No growth after 48 hours. 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 Time Spent With Patient Time: Total time managing care of this patient today ____ minutes. Progress Note: Quality Stroke Does the patient have a stroke diagnosis?: No
[2022-09-17 15:51] VITALS: BP 165/76; PULSE 74; RESP 19; TEMP 36.9; O2SAT 96
[2022-09-17 15:59] LABS: Glucose, Whole Blood 202 mg/dL (60-115)
[2022-09-17] MEDS: Sodium Bicarbonate 650 MG TABLET 1300 MG PO ×2 (16:39→21:39)
[2022-09-17 20:00] VITALS: BP 132/82; PULSE 76; RESP 19; TEMP 36.8
[2022-09-17 20:48] LABS: Glucose, Whole Blood 151 mg/dL (60-115)
[2022-09-17] MEDS: Aspirin Enteric Coated 81 MG TABLET.DR PO (21:38)
[2022-09-17] MEDS: traZODone HCL 50 MG TABLET PO (21:39)
[2022-09-17] MEDS: Atorvastatin Calcium 80 MG TABLET PO (21:39)
[2022-09-18] VITALS (7 sets, daily range): BP systolic 137–174; BP diastolic 56–80; PULSE 62–86; RESP 12–18; TEMP 36–36.9; O2SAT 96–99
[2022-09-18] MEDS: Omeprazole 20 MG CAPSULE.DR PO ×2 (05:43→16:23)
[2022-09-18] MEDS: Piperacillin Sodium/Tazobactam 2.25 GM in 0.9 % Sodium Chloride 50 ML IV ×4 (05:44→22:36)
[2022-09-18 07:30] LABS: Creatinine Clr Calc Pharmacy 12.8; Estimated Glomerular Filt Rate 12
[2022-09-18 07:41] LABS: Glucose, Whole Blood 102 mg/dL (60-115)
[2022-09-18] MEDS: Sodium Bicarbonate 650 MG TABLET 1300 MG PO ×2 (09:07→21:21)
[2022-09-18] MEDS: Loperamide HCl 2 MG CAPSULE PO ×2 (09:08→23:23)
[2022-09-18] MEDS: Clopidogrel Bisulfate 75 MG TABLET PO (09:08)
[2022-09-18] MEDS: Insulin Glargine,Hum.rec.anlog 100 UNIT/ML 10 ML VIAL 18 UNIT SUBCUT (09:08)
[2022-09-18] MEDS: Sertraline HCL 50 MG TABLET PO (09:08)
[2022-09-18] MEDS: amLODIPine Besylate 10 MG TABLET PO (09:08)
[2022-09-18] MEDS: Calcium + Vitamin D 250 MG TABLET PO ×2 (09:08→21:22)
[2022-09-18] MEDS: carvediloL 6.25 MG TABLET PO ×2 (09:08→21:22)
[2022-09-18] MEDS: Furosemide 40 MG TABLET PO ×2 (09:08→16:23)
[2022-09-18] MEDS: Isosorbide Mononitrate 60 MG TAB.ER.24H PO (09:08)
--- NOTE | 2022-09-18 11:00 | PM.PNORT ---
Subjective Subjective Date of Service: 09/18/22 Interval history: Patient resting comfortably in bed with daughter at bedside. No overnight events. Reports that the pain in the left index finger is improving. No additional complaints. Physical Exam Vital Signs: Vital Signs: Last Vital Signs Temp 96.8 F 09/18/22 19:02 Pulse 67 09/18/22 19:02 Resp 17 09/18/22 19:02 BP 144/65 H 09/18/22 19:02 Pulse Ox 96 09/18/22 19:02 O2 Del Method 09/18/22 19:02 O2 Flow Rate 2 09/18/22 19:02 Oxygen Flow Rate 2 09/14/22 17:05 BMI result Body Mass Index 37.3 Const: General: cooperative, healthy appearing and no acute distress Orientation/consciousness: oriented to person and oriented to place HEENT: Head: Yes normocephalic and Yes atraumatic Eyes: EOM: EOMs intact bilaterally Resp: Effort & Inspection: normal respiratory effort and able to speak in complete sentences Cardio: Rate: regular rate Peripheral pulses: Peripheral pulses 2+ throughout GI: Palpation (GI): Soft to palpation Skin: General skin exam: turgor normal Lesions: no lesions Rashes: no rashes Neuro: General: oriented to person and oriented to place Extrem: Other: Left index finger continued swelling, and erythema from about the mid aspect of the proximal and an open wound at the tip of the finger phalanx distally with necrotic tissue present. Exposed bone protruding through the tip of the digit, and this appears to be a chronic situation. The finger is held in a flexed position at the PIP joint. Psych: Affect: normal affect Attitude: cooperative Procedures Date of Service Date of Service: 09/18/22 Progress Note: A&P Assessment and plan (1) Finger infection: Status: Acute Assessment and Plan: Continue IV abx Monitor for any worsening erythema, edema or pain. Plan to bring to the OR once medically cleared for index finger amputation Pain management as needed (2) Cardiomyopathy: Status: Acute (3) CKD (chronic kidney disease) stage 5, GFR less than 15 ml/min: Status: Acute (4) Non-ST elevated myocardial infarction: Status: Acute (5) Acute congestive heart failure: Status: Acute Time Spent With Patient Time: Total time managing care of this patient today ____ minutes. Quality Stroke Does the patient have a stroke diagnosis?: No VTE Prior VTE?: No VTE Risk Level:: Medical - moderate - high VTE Device Contraindication: Treatment Not Indicated VTE Drug Contraindication: N/A - Med Ordered
[2022-09-18 11:46] LABS: Adenovirus F 40/41 Not Detected (Not Detect.); Astrovirus Not Detected (Not Detect.); Campylobacter Not Detected (Not Detect.); Cryptosporidium Not Detected (Not Detect.); Cyclospora cayetanensis Not Detected (Not Detect.); E. coli EAEC Not Detected (Not Detect.); E. coli EPEC Not Detected (Not Detect.); E. coli ETEC Not Detected (Not Detect.); E. coli STEC Not Detected (Not Detect.); Entamoeba histolytica Not Detected (Not Detect.); Giardia lamblia Not Detected (Not Detect.); Norovirus GI/GII Not Detected (Not Detect.); Plesiomonas shigelloides Not Detected (Not Detect.); Rotavirus A Not Detected (Not Detect.); Salmonella Not Detected (Not Detect.); Sapovirus Not Detected (Not Detect.); Shigella sp./EIEC Not Detected (Not Detect.); Vibrio Not Detected (Not Detect.); Vibrio Cholerae Not Detected (Not Detect.); Yersinia enterocolitica Not Detected (Not Detect.)
[2022-09-18] MEDS: Insulin Lispro 100 UNIT/ML 3 ML VIAL SUBCUT ×3 (12:02→21:26)
[2022-09-18 12:03] LABS: Glucose, Whole Blood 209 mg/dL (60-115)
--- NOTE | 2022-09-18 13:04 | HO.PM.IMPN ---
Subjective Subjective Date of Service: 09/18/22 Interval History: nstemi,cellulitis Review of Systems Denies any chest pain or shortness of breath or abdominal pain or no finger pain either No fever or chills has some diarrahe Physical Exam Vital Signs: Vital Signs: Last Vital Signs Temp 97.5 F 09/18/22 11:15 Pulse 70 09/18/22 11:15 Resp 12 09/18/22 11:15 BP 137/58 L 09/18/22 11:15 Pulse Ox 97 09/18/22 11:15 O2 Del Method 09/18/22 11:15 O2 Flow Rate 2 09/18/22 11:15 Oxygen Flow Rate 2 09/14/22 17:05 BMI result Body Mass Index 37.3 ?Appearance: Alert.? Oriented X3.? not in distress.? cvs: rrr, [id number] . res: clear to auscultation ,no rhonchii or wheezing abd: no rebound or guarding ,nt, bs present. 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 neuro: axo3 , nonfocal. Objective Data Active Medications Acetaminophen (Acetaminophen 325 Mg Tablet) 650 mg PO Q6H PRN PRN Reason: Pain, Mild (Pain Scale 1-3) Last Admin: 09/15/22 15:30 Dose: 650 mg Documented By: LISA Albuterol/Ipratropium (Albuterol/Iprat 2.5/0.5mg 3 Ml Ampul.Neb) 3 ml INHALE RQ4H PRN PRN Reason: Wheezing Amlodipine Besylate (Amlodipine Besylate 10 Mg Tablet) 10 mg PO DAILY [facility]; Protocol Last Admin: 09/18/22 09:08 Dose: 10 mg Documented By: HEDY Aspirin (Aspirin Enteric Coated 81 Mg Tablet.) 81 mg PO BEDTIME [facility] Last Admin: 09/17/22 21:38 Dose: 81 mg Documented By: ROMARIO Atorvastatin Calcium (Atorvastatin Calcium 80 Mg Tablet) 80 mg PO BEDTIME [facility] Last Admin: 09/17/22 21:39 Dose: 80 mg Documented By: ROMARIO Calcium Carbonate/Cholecalciferol (Calcium + Vitamin D 250 Mg Tablet) 250 mg PO BID [facility] Last Admin: 09/18/22 09:08 Dose: 250 mg Documented By: HEDY Carvedilol (Carvedilol 6.25 Mg Tablet) 6.25 mg PO BID [facility]; Protocol Last Admin: 09/18/22 09:08 Dose: 6.25 mg Documented By: HEDY Clopidogrel Bisulfate (Clopidogrel Bisulfate 75 Mg Tablet) 75 mg PO DAILY [facility] Last Admin: 09/18/22 09:08 Dose: 75 mg Documented By: HEDY Dextrose (Dextrose 50 % 25 Gm/50 Ml Syringe) 25 gm IVPUSH Q15M PRN; Protocol PRN Reason: per Hypoglycemia Standing Ord. Famotidine (Famotidine 20 Mg Tablet) 20 mg PO Q2D@0900 [facility] Last Admin: 09/17/22 08:26 Dose: 20 mg Documented By: HEDY Furosemide (Furosemide 40 Mg Tablet) 40 mg PO BIDWM [facility]; Protocol Last Admin: 09/18/22 09:08 Dose: 40 mg Documented By: HEDY Glucose (Glucose Gel 15 Gm Gel..Gram.) 15 gm PO Q15M PRN; Protocol PRN Reason: per Hypoglycemia Standing Ord. Heparin Sodium (Porcine) (Heparin Sodium,Porcine 5,000 Unit/Ml Vial) 3,200 unit 40 unit/kg (3200 unit) IVPUSH PROTOCOL BOLUS PRN; Protocol PRN Reason: 40 unit/kg - Heparin Protocol Heparin Sodium (Porcine) (Heparin Sodium,Porcine 5,000 Unit/Ml Vial) 6,500 unit 80 unit/kg (6500 unit) IVPUSH PROTOCOL BOLUS PRN; Protocol PRN Reason: 80 unit/kg - Heparin Protocol Vancomycin HCl 750 mg/ Sodium (Chloride) 265 mls @ 265 mls/hr IV Q48H [facility] Last Infusion: 09/16/22 23:42 Dose: 0 mls/hr Documented By: ROMARIO Piperacillin Sod/Tazobactam (Sod 2.25 gm/ Sodium Chloride) 50 mls @ 100 mls/hr IV Q6H [facility] Last Infusion: 09/18/22 09:49 Dose: 0 mls/hr Documented By: HEDY Insulin Glargine (Insulin Glargine,Hum.Rec.Anlog 100 Unit/Ml 10 Ml Vial) 18 unit SUBCUT DAILY [facility] Last Admin: 09/18/22 09:08 Dose: 18 unit Documented By: HEDY Insulin Human Lispro (Insulin Lispro 100 Unit/Ml 3 Ml Vial) 0 unit SUBCUT QIDACHS [facility]; Protocol Last Admin: 09/18/22 12:02 Dose: 4 unit Documented By: HEDY Isosorbide Mononitrate (Isosorbide Mononitrate 60 Mg Tab.Er.24h) 60 mg PO DAILY [facility]; Protocol Last Admin: 09/18/22 09:08 Dose: 60 mg Documented By: HEDY Loperamide HCl (Loperamide Hcl 2 Mg Capsule) 2 mg PO Q4H PRN PRN Reason: Diaper Rash Last Admin: 09/18/22 09:08 Dose: 2 mg Documented By: HEDY Omeprazole (Omeprazole 20 Mg Capsule.Dr) 20 mg PO BID@0630,1630 [facility] Last Admin: 09/18/22 05:43 Dose: 20 mg Documented By: ROMARIO Ondansetron HCl (Ondansetron Hcl 4 Mg/2 Ml Vial) 4 mg IVPUSH Q8H PRN PRN Reason: Nausea and Vomiting Pharmacy Consult (Consult Rx Vancomycin Dosing) 1 each MISCELLANE DAILY PRN PRN Reason: Consult order Sertraline HCl (Sertraline Hcl 50 Mg Tablet) 50 mg PO DAILY [facility] Last Admin: 09/18/22 09:08 Dose: 50 mg Documented By: HEDY Sodium Bicarbonate (Sodium Bicarbonate 650 Mg Tablet) 1,300 mg PO BID [facility] Last Admin: 09/18/22 09:07 Dose: 1,300 mg Documented By: HEDY Trazodone HCl (Trazodone Hcl 50 Mg Tablet) 50 mg PO BEDTIME [facility] Last Admin: 09/17/22 21:39 Dose: 50 mg Documented By: ROMARIO Labs CBC & Chem 7: 09/17/22 08:24 09/18/22 06:18 Labs: Laboratory Results - last 24 hr 09/17/22 09/17/22 09/17/22 15:29 18:30 20:27 Estim Creat Clear Calc Estimated GFR POC Glucose 202 H 151 H Stl C. cayetanensis PCR Not Detected Stool Rotavirus A PCR Not Detected Stl Adenov F 40/41 PCR Not Detected Stool Astrovirus (PCR) Not Detected Stool Campylobacter PCR Not Detected Stool Cryptosporidium PCR Not Detected Stl Sh Tox Pr E STEC PCR Not Detected Stool E coli O157 PCR Not applicable Stl Enterotoxigenic E PCR Not Detected Stool EPEC (PCR) Not Detected Stool EAEC (PCR) Not Detected Stl E. histolytica PCR Not Detected Stool Giardia Lamblia PCR Not Detected Stl P. shigelloides PCR Not Detected Stool Salmonella PCR Not Detected Stool Sapovirus (PCR) Not Detected Stl Shigella/EIEC PCR Not Detected St Y.enterocolitica PCR Not Detected Stool Vibrio (PCR) Not Detected Stl Vibrio cholerae PCR Not Detected Stl Norovirus GI/GII PCR Not Detected 09/18/22 09/18/22 09/18/22 06:18 07:35 11:13 Estim Creat Clear Calc 12.8 Estimated GFR 12 POC Glucose 102 209 H Stl C. cayetanensis PCR Stool Rotavirus A PCR Stl Adenov F 40/41 PCR Stool Astrovirus (PCR) Stool Campylobacter PCR Stool Cryptosporidium PCR Stl Sh Tox Pr E STEC PCR Stool E coli O157 PCR Stl Enterotoxigenic E PCR Stool EPEC (PCR) Stool EAEC (PCR) Stl E. histolytica PCR Stool Giardia Lamblia PCR Stl P. shigelloides PCR Stool Salmonella PCR Stool Sapovirus (PCR) Stl Shigella/EIEC PCR St Y.enterocolitica PCR Stool Vibrio (PCR) Stl Vibrio cholerae PCR Stl Norovirus GI/GII PCR Assessment and Plan (1) CKD (chronic kidney disease) stage 5, GFR less than 15 ml/min: Status: Acute (2) Finger infection: Status: Acute (3) Diarrhea: Status: Acute Plan 67-year-old female with past medical history as mentioned above presents to the hospital with infected left finger #? cellulitis of left index finger? with possible? necrotic tissue -? arterial duplex negative,ESR 121 and CRP:6. vanco trough :14. -? will treat with IV antibiotics-on vanco/zosyn, blood? cultures neg@48hrs -? general surgery consult for possible debridement #? NSTEMI -? elevated troponin -? no EKG changes suggestive of? ACS -? given the significant elevation troponin, patient started on heparin drip in the ED -? echocardiogram CKD, elevated troponin, anemic, has NSTEMI in the setting of finger cellulitis:? Cardiology recommended-She is a poor candidate for invasive management.? At this time, completed 48 hours IV heparin, aspirin, high-dose statins.? Also on beta-blockers. #? normocytic anemia received 2 prbc :05/25.5 -? unclear etiology -? was evaluated in the past for the same, at that time patient underwent EGD which showed? dysphagia, rows of gastritis, and duodenitis, -? guaiac negative for any blood anemia workup-iron,iron sats,tibc low, ferritin normal-possible aocd +iron def, tranfuse2 prbc ?switch to po ppi sinceoff heprin drip,added iron #? hypertension -? stable -? continue home antihypertensives #? diabetes -? low-dose sliding scale as -? diabetic diet ckd stage 5 /anemia moniter h/h anemia workup nephro eval diarrhae: c diff ,stool wbc neg Diarrhea possibly related to laxative, magnesium and Kayexalate use: Will hold these medications, added Imodium. ?DVT prophylaxis:? Heparin GGT inpatient need:?given patient's need for IV antibiotics for cellulitis -need possible finger amputation . Time Spent With Patient Time: Total time managing care of this patient today ____ minutes. Quality Stroke Does the patient have a stroke diagnosis?: No VTE Prior VTE?: No VTE Risk Level:: Medical - moderate - high VTE Device Contraindication: Treatment Not Indicated VTE Drug Contraindication: N/A - Med Ordered
[2022-09-18 15:56] LABS: Glucose, Whole Blood 217 mg/dL (60-115)
[2022-09-18] MEDS: vancomycin HCL 750 MG in 0.9 % Sodium Chloride 250 ML 265 MG IV (17:30)
[2022-09-18 17:36] LABS: Vancomycin Random 16.8 mcg/mL (15-20)
--- NOTE | 2022-09-18 17:49 | HE.PHANOTE ---
VANCOMYCIN DOSE ADJUSTMENT BASED ON SCR AND TROUGH OF 16.8 DOSE CONTINUED AT 750 Q 48H. NEXT TROUGH AT 09/20 @ 1700
--- NOTE | 2022-09-18 18:54 | PM.PNNEP ---
Subjective Subjective Date of Service: 09/18/22 Interval history: seen and examined, events noted Physical Exam Vital Signs: Vital Signs: Last Vital Signs Temp 96.9 F 09/18/22 15:29 Pulse 86 09/18/22 15:29 Resp 16 09/18/22 15:29 BP 139/72 09/18/22 15:29 Pulse Ox 99 09/18/22 15:29 O2 Del Method 09/18/22 15:29 O2 Flow Rate 2 09/18/22 15:29 Oxygen Flow Rate 2 09/14/22 17:05 BMI result Body Mass Index 37.3 Const: Other: patient is alert and oriented to self and place and answers questions appropriately General: cooperative, healthy appearing, comfortable, no acute distress, ill appearing and tired appearing Nutritional Appearance: well nourished Orientation/consciousness: oriented to person, oriented to place and patient oriented x3 HEENT: Other: Unremarkable Head: Yes normal to inspection, Yes normocephalic and Yes atraumatic Eyes: General: appearance normal, both eyes and all related structures EOM: EOMs intact bilaterally Neck: Neck: Yes normal visual inspection Chest: Chest palpation & inspection: normal inspection of the chest Resp: Other: Clear and equal bilaterally without wheezes rales or rhonchi but it is diminished throughout Effort & Inspection: normal respiratory effort, able to speak in complete sentences, no audible wheezes, no cough and no respiratory distress Auscultation: clear to auscultation bilaterally Cardio: Other: Regular rate and rhythm without murmurs rubs or gallops Palpation: normal PMI Rate: regular rate Rhythm: regular rhythm Heart sounds: S1 normal heart sound present, S2 normal heart sound present, no gallops, no murmurs and no rubs Peripheral pulses: Peripheral pulses 2+ throughout GI: Other: Abdomen is soft nontender nondistended Inspection: Yes normal to inspection Palpation (GI): Soft to palpation Auscultation: normal bowel sounds Back/Spine/Pelvis: Other: unremarkable Skin: Other: Warm, dry, no rashes General skin exam: no rashes or lesions noted and turgor normal Lesions: no lesions Rashes: no rashes Neuro: Other: Nonfocal neuro exam General: oriented to person, oriented to place and patient oriented x3 Extrem: Other: 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 cayetanensis PCR Not Detected Stool Rotavirus A PCR Not Detected Stl Adenov F 40/41 PCR Not Detected Stool Astrovirus (PCR) Not Detected Stool Campylobacter PCR Not Detected Stool Cryptosporidium PCR Not Detected Stl Sh Tox Pr E STEC PCR Not Detected Stool E coli O157 PCR Not applicable Stl Enterotoxigenic E PCR Not Detected Stool EPEC (PCR) Not Detected Stool EAEC (PCR) Not Detected Stl E. histolytica PCR Not Detected Stool Giardia Lamblia PCR Not Detected Stl P. shigelloides PCR Not Detected Stool Salmonella PCR Not Detected Stool Sapovirus (PCR) Not Detected Stl Shigella/EIEC PCR Not Detected St Y.enterocolitica PCR Not Detected Stool Vibrio (PCR) Not Detected Stl Vibrio cholerae PCR Not Detected Stl Norovirus GI/GII PCR Not Detected Random Vancomycin 09/18/22 09/18/22 09/18/22 07:35 11:13 15:32 Creatinine Estim Creat Clear Calc Estimated GFR POC Glucose 102 209 H 217 H Stl C. cayetanensis PCR Stool Rotavirus A PCR Stl Adenov F 40/41 PCR Stool Astrovirus (PCR) Stool Campylobacter PCR Stool Cryptosporidium PCR Stl Sh Tox Pr E STEC PCR Stool E coli O157 PCR Stl Enterotoxigenic E PCR Stool EPEC (PCR) Stool EAEC (PCR) Stl E. histolytica PCR Stool Giardia Lamblia PCR Stl P. shigelloides PCR Stool Salmonella PCR Stool Sapovirus (PCR) Stl Shigella/EIEC PCR St Y.enterocolitica PCR Stool Vibrio (PCR) Stl Vibrio cholerae PCR Stl Norovirus GI/GII PCR Random Vancomycin 09/18/22 17:02 Creatinine Estim Creat Clear Calc Estimated GFR POC Glucose Stl C. cayetanensis PCR Stool Rotavirus A PCR Stl Adenov F 40/41 PCR Stool Astrovirus (PCR) Stool Campylobacter PCR Stool Cryptosporidium PCR Stl Sh Tox Pr E STEC PCR Stool E coli O157 PCR Stl Enterotoxigenic E PCR Stool EPEC (PCR) Stool EAEC (PCR) Stl E. histolytica PCR Stool Giardia Lamblia PCR Stl P. shigelloides PCR Stool Salmonella PCR Stool Sapovirus (PCR) Stl Shigella/EIEC PCR St Y.enterocolitica PCR Stool Vibrio (PCR) Stl Vibrio cholerae PCR Stl Norovirus GI/GII PCR Random Vancomycin 16.8 Microbiology Microbiology Results: Microbiology 09/14/22 17:47 Blood - Venous Blood Culture - Preliminary No growth after 48 hours. 09/14/22 17:37 Blood - Venous Blood Culture - Preliminary No growth after 48 hours. Procedures Date of Service Date of Service: 09/18/22 Assessment & Plan Assessment and plan (1) Finger infection: Status: Acute (2) Non-ST elevated myocardial infarction: Status: Acute (3) Normocytic anemia: Status: Acute (4) CKD (chronic kidney disease) stage 5, GFR less than 15 ml/min: Status: Acute Plan Adv CKD: BSL SCr 3.5-4.0; c/w DN/HTN renal dis Anemia: eval for FE/EPO; s/p xfusion MBD of CKD: check PTH/vit D NAGMA REC: cont NaHCO3 and recheck renal labs and HCO3 level; protect non-dominant arm, check Fe stores, EPO, check PTH/vit D . Time Spent With Patient Time: Total time managing care of this patient today ____ minutes. Progress Note: Quality Stroke Does the patient have a stroke diagnosis?: No
[2022-09-18 20:15] LABS: Glucose, Whole Blood 186 mg/dL (60-115)
[2022-09-18] MEDS: Atorvastatin Calcium 80 MG TABLET PO (21:21)
[2022-09-18] MEDS: Aspirin Enteric Coated 81 MG TABLET.DR PO (21:21)
[2022-09-18] MEDS: traZODone HCL 50 MG TABLET PO (21:22)
[2022-09-19] VITALS (10 sets, daily range): BP systolic 116–159; BP diastolic 42–99; PULSE 63–69; RESP 16–20; TEMP 36.4–37.2; O2SAT 94–98
[2022-09-19] MEDS: Piperacillin Sodium/Tazobactam 2.25 GM in 0.9 % Sodium Chloride 50 ML IV ×4 (03:56→22:21)
[2022-09-19] MEDS: Omeprazole 20 MG CAPSULE.DR PO ×2 (04:47→16:57)
[2022-09-19 05:53] LABS: Hematocrit 24.2 % (37.0-47.0); Hemoglobin 7.7 g/dl (12.0-16.0); Mean Corpuscular HGB Conc 31.8 g/dl (31.0-35.0); Mean Corpuscular Hemoglobin 26.2 pg (27.0-33.0); Mean Corpuscular Volume 82.3 fL (80.0-98.0); Mean Platelet Volume 10.2 fL (9.4-12.3); Platelet Count 196 X10*3/uL (160-400); Red Blood Count 2.94 X10*6/uL (4.20-5.50); Red Cell Distribution Width 14.1 % (11.0-16.0); White Blood Count 10.8 X10*3/uL (4.8-10.8)
[2022-09-19 06:08] LABS: Creatinine Clr Calc Pharmacy 12.9; Estimated Glomerular Filt Rate 12
[2022-09-19 07:50] LABS: Glucose, Whole Blood 124 mg/dL (60-115)
[2022-09-19] MEDS: Sodium Bicarbonate 650 MG TABLET 1300 MG PO ×2 (09:09→21:02)
[2022-09-19] MEDS: amLODIPine Besylate 10 MG TABLET PO (09:09)
[2022-09-19] MEDS: Furosemide 40 MG TABLET PO ×2 (09:09→16:57)
[2022-09-19] MEDS: Famotidine 20 MG TABLET PO (09:10)
[2022-09-19] MEDS: Sertraline HCL 50 MG TABLET PO (09:10)
[2022-09-19] MEDS: Clopidogrel Bisulfate 75 MG TABLET PO (09:10)
[2022-09-19] MEDS: Calcium + Vitamin D 250 MG TABLET PO ×2 (09:10→21:03)
[2022-09-19] MEDS: carvediloL 6.25 MG TABLET PO ×2 (09:10→21:01)
[2022-09-19] MEDS: Isosorbide Mononitrate 60 MG TAB.ER.24H PO (09:10)
[2022-09-19] MEDS: Insulin Glargine,Hum.rec.anlog 100 UNIT/ML 10 ML VIAL 18 UNIT SUBCUT (09:15)
--- NOTE | 2022-09-19 09:30 | P.CONAN_ITS ---
HPI - Anesthesia Eval Consult details Narrative: amputation left second finger PMFSH Active Problems Active Problems: All Active Problems (Updated 09/15/22 @ 15:22 by Mamadou Mixon MD) CKD (chronic kidney disease) stage 5, GFR less than 15 ml/min (Acute) Finger infection (Acute) Cardiomyopathy (Acute) UTI (urinary tract infection) (Acute) Normocytic anemia (Acute) Cellulitis of hand, left (Acute) Non-ST elevated myocardial infarction (Acute) Chronic kidney failure (Acute) Urinary tract infection due to ESBL Klebsiella (Acute) Toxic metabolic encephalopathy (Acute) Hypoglycemia (Acute) Diarrhea (Acute) Dysphagia (Acute) Hyperkalemia (Acute) Acute congestive heart failure (Acute) Cerebral infarction (Acute) Acute CVA (cerebrovascular accident) (Acute) Past Medical History Medical History Acute on chronic renal failure Acute worsening of stage 4 chronic kidney disease Anemia Blister of finger without infection Cholecystectomy planned Chronic heart failure with preserved ejection fraction (HFpEF) CKD (chronic kidney disease) CKD (chronic kidney disease) stage 3, GFR 30-59 ml/min CKD (chronic kidney disease) stage 4, GFR 15-29 ml/min CKD (chronic kidney disease), stage IV Congestive heart failure Diabetes Diabetes mellitus Elevated d-dimer Elevated troponin Essential hypertension Gastroparesis Generalized weakness GERD (gastroesophageal reflux disease) Hand pain Hernia HLD (hyperlipidemia) HTN (hypertension) Hypomagnesemia Irritable bowel syndrome with diarrhea Lightheadedness Low blood pressure Non-ST elevated myocardial infarction Nonischemic cardiomyopathy Other and unspecified hyperlipidemia Pharyngoesophageal dysphagia Type 2 diabetes mellitus with unspecified complications UTI (urinary tract infection) Narrative: No chest pain recently Family History Family History Father Lung cancer Mother Diabetes HTN (hypertension) Heart disease Sister Diabetes Heart disease Brother Heart disease Son Diabetes Daughter Diabetes Family history of problems with anesthesia: No Surgical History Surgical History H/O: hysterectomy History of esophagogastroduodenoscopy (EGD) Hx of colonoscopy Hx of eye surgery History of Problems with Anesthesia: No Social History Social History Household Members: Unknown / Unable to assess Household Members Other:: SNF Housing: Assisted Living Facility Do you presently have visiting nurse or other home services: No Unable to assess alcohol history related to: Unknown Alcohol intake: never Patient Tobacco Use Status: Never used Tobacco Second Hand Smoke Exposure: No Advance Directives Date on File: 02/02/22 service: No Current occupational status: disabled Meds Allergies Allergy/AdvReac Type Severity Reaction Status Date / Time latex [LATEX] Allergy Intermediate ITCHY Verified 06/29/21 13:08 Active Medications: Current Medications Acetaminophen (Acetaminophen 325 Mg Tablet) 650 mg PO Q6H PRN PRN Reason: Pain, Mild (Pain Scale 1-3) Last Admin: 09/15/22 15:30 Dose: 650 mg Albuterol/Ipratropium (Albuterol/Iprat 2.5/0.5mg 3 Ml Ampul.Neb) 3 ml INHALE RQ4H PRN PRN Reason: Wheezing Amlodipine Besylate (Amlodipine Besylate 10 Mg Tablet) 10 mg PO DAILY MATTY; Protocol Last Admin: 09/19/22 09:09 Dose: 10 mg Aspirin (Aspirin Enteric Coated 81 Mg Tablet.Dr) 81 mg PO BEDTIME MATTY Last Admin: 09/18/22 21:21 Dose: 81 mg Atorvastatin Calcium (Atorvastatin Calcium 80 Mg Tablet) 80 mg PO BEDTIME MATTY Last Admin: 09/18/22 21:21 Dose: 80 mg Calcium Carbonate/Cholecalciferol (Calcium + Vitamin D 250 Mg Tablet) 250 mg PO BID MATTY Last Admin: 09/19/22 09:10 Dose: 250 mg Carvedilol (Carvedilol 6.25 Mg Tablet) 6.25 mg PO BID MATTY; Protocol Last Admin: 09/19/22 09:10 Dose: 6.25 mg Clopidogrel Bisulfate (Clopidogrel Bisulfate 75 Mg Tablet) 75 mg PO DAILY MATTY Last Admin: 09/19/22 09:10 Dose: 75 mg Dextrose (Dextrose 50 % 25 Gm/50 Ml Syringe) 25 gm IVPUSH Q15M PRN; Protocol PRN Reason: per Hypoglycemia Standing Ord. Famotidine (Famotidine 20 Mg Tablet) 20 mg PO Q2D@0900 MATTY Last Admin: 09/19/22 09:10 Dose: 20 mg Furosemide (Furosemide 40 Mg Tablet) 40 mg PO BIDWM MATTY; Protocol Last Admin: 09/19/22 09:09 Dose: 40 mg Glucose (Glucose Gel 15 Gm Gel..Gram.) 15 gm PO Q15M PRN; Protocol PRN Reason: per Hypoglycemia Standing Ord. Vancomycin HCl 750 mg/ Sodium (Chloride) 265 mls @ 265 mls/hr IV Q48H [facility] Last Infusion: 09/18/22 18:57 Dose: Infused Piperacillin Sod/Tazobactam (Sod 2.25 gm/ Sodium Chloride) 50 mls @ 100 mls/hr IV Q6H [facility] Last Infusion: 09/19/22 04:33 Dose: Infused Insulin Glargine (Insulin Glargine,Hum.Rec.Anlog 100 Unit/Ml 10 Ml Vial) 18 unit SUBCUT DAILY [facility] Last Admin: 09/19/22 09:15 Dose: 18 unit Insulin Human Lispro (Insulin Lispro 100 Unit/Ml 3 Ml Vial) 0 unit SUBCUT QIDACHS [facility]; Protocol Last Admin: 09/19/22 08:08 Dose: Not Given Isosorbide Mononitrate (Isosorbide Mononitrate 60 Mg Tab.Er.24h) 60 mg PO DAILY [facility]; Protocol Last Admin: 09/19/22 09:10 Dose: 60 mg Loperamide HCl (Loperamide Hcl 2 Mg Capsule) 2 mg PO Q4H PRN PRN Reason: Diaper Rash Last Admin: 09/18/22 23:23 Dose: 2 mg Omeprazole (Omeprazole 20 Mg Capsule.Dr) 20 mg PO BID@0630,1630 [facility] Last Admin: 09/19/22 04:47 Dose: 20 mg Ondansetron HCl (Ondansetron Hcl 4 Mg/2 Ml Vial) 4 mg IVPUSH Q8H PRN PRN Reason: Nausea and Vomiting Pharmacy Consult (Consult Rx Vancomycin Dosing) 1 each MISCELLANE DAILY PRN PRN Reason: Consult order Sertraline HCl (Sertraline Hcl 50 Mg Tablet) 50 mg PO DAILY [facility] Last Admin: 09/19/22 09:10 Dose: 50 mg Sodium Bicarbonate (Sodium Bicarbonate 650 Mg Tablet) 1,300 mg PO BID [facility] Last Admin: 09/19/22 09:09 Dose: 1,300 mg Trazodone HCl (Trazodone Hcl 50 Mg Tablet) 50 mg PO BEDTIME [facility] Last Admin: 09/18/22 21:22 Dose: 50 mg Home Medications Medication Instructions Recorded Confirmed Last Taken Type aspirin 81 mg tablet,delayed 81 mg PO BEDTIME 06/20/21 09/15/22 09/14/22 History release atorvastatin 80 mg tablet 80 mg PO BEDTIME 06/20/21 09/15/22 09/14/22 History calcium carbonate 600 mg-vitamin 1 tab PO BID 06/20/21 09/15/22 09/14/22 History D3 10 mcg (400 unit) tablet clopidogrel 75 mg tablet 75 mg PO DAILY 06/20/21 09/15/22 09/14/22 History magnesium oxide 400 mg (241.3 mg 400 mg PO BID 06/20/21 09/15/22 09/14/22 History magnesium) tablet sertraline 50 mg tablet 50 mg PO DAILY 06/20/21 09/15/22 09/14/22 History trazodone 50 mg tablet 50 mg PO BEDTIME 06/20/21 09/15/22 09/14/22 History insulin glargine 100 unit/mL (3 18 unit subcut DAILY 03/25/22 09/15/22 09/14/22 History mL) subcutaneous pen (Lantus Solostar U-100 Insulin) acetaminophen 500 mg tablet 2 tab PO QID PRN fever 05/05/22 09/15/22 Unknown History insulin lispro 100 unit/mL 1 sliding scale dose subcut 05/05/22 09/15/22 Unknown History subcutaneous solution (Humalog USEASDIRECTD U-100 Insulin) ipratropium 0.5 mg-albuterol 3 mg 3 ml inhalation Q4H PRN Wheezing 05/05/22 09/15/22 Unknown History (2.5 mg base)/3 mL nebulization soln Exam Exam Date and Time: September 19, 2022 0930 Height,Weight and Vital Signs: Height 4 ft 10 in Weight 81.1 kg Last Vital Signs Temp 97.9 F 09/19/22 07:23 Pulse 66 09/19/22 07:23 Resp 20 09/19/22 07:23 BP 159/70 H 09/19/22 07:23 Pulse Ox 98 09/19/22 07:23 O2 Del Method 09/19/22 07:23 O2 Flow Rate 2 09/19/22 07:23 Oxygen Flow Rate 2 09/14/22 17:05 Pertinent Lab Results Pertinent Lab Results: Laboratory Tests 09/14/22 09/14/22 09/14/22 17:37 17:37 17:37 WBC 15.7 H RBC 3.01 L D Hgb 7.8 L D Hct 24.1 L D MCV 80.1 MCH 25.9 L MCHC 32.4 RDW 13.7 Plt Count 218 D MPV 10.6 Immature Gran % (Auto) 0.6 H Neut % (Auto) 78.1 H Lymph % (Auto) 13.5 L [place] % (Auto) 7.1 Eos % (Auto) 0.6 Baso % (Auto) 0.1 Lymph # (Auto) 2.1 [place] # (Auto) 1.1 Eos # (Auto) 0.1 Baso # (Auto) 0.0 Abs Immat Gran (auto) 0.10 H Absolute Neuts (auto) 12.3 H Absolute Nucleated RBC 0.000 Nucleated RBC % (auto) 0.0 ESR PT INR aPTT Heparin Protocol Sodium 140 Potassium 4.7 Chloride 104 Carbon Dioxide 23 Anion Gap 18 BUN 71 H Creatinine 3.87 H Estim Creat Clear Calc 12.3 Estimated GFR 12 POC Glucose Random Glucose 133 H Lactic Acid 1.1 Calcium 8.7 D Phosphorus Iron TIBC % Saturation Unsat Iron Binding Ferritin Total Bilirubin 0.5 AST 10 ALT 7 Alkaline Phosphatase 138 H Troponin I High Sens C-Reactive Protein Total Protein 7.1 Albumin 3.7 Vitamin B12 Folate Urine Color Urine Appearance Urine pH Ur Specific [place] Urine Protein Urine Glucose (UA) Urine Ketones Urine Blood Urine Nitrite Ur Leukocyte Esterase Urine RBC Urine WBC Ur Squamous Epith Cells Urine Bacteria Hyaline Casts Stool Occult Blood Stool Leukocytes, Qual Stl C. cayetanensis PCR Stool Rotavirus A PCR Stl Adenov F 40/41 PCR Stool Astrovirus (PCR) Stool Campylobacter PCR Stool Cryptosporidium PCR Stl Sh Tox Pr E STEC PCR Stool E coli O157 PCR Stl Enterotoxigenic E PCR Stool EPEC (PCR) Stool EAEC (PCR) Stl E. histolytica PCR Stool Giardia Lamblia PCR Stl P. shigelloides PCR Stool Salmonella PCR Stool Sapovirus (PCR) Stl Shigella/EIEC PCR St Y.enterocolitica PCR Stool Vibrio (PCR) Stl Vibrio cholerae PCR Stl Norovirus GI/GII PCR Random Vancomycin C. difficile Tox B Gene Influenza Type A (PCR) Influenza Type B (PCR) RSV RNA Qual (PCR) SARS-CoV-2 RNA (RT-PCR) Blood Type Antibody Screen Crossmatch 09/14/22 09/14/22 09/14/22 17:37 17:37 18:58 WBC RBC Hgb Hct MCV MCH MCHC RDW Plt Count MPV Immature Gran % (Auto) Neut % (Auto) Lymph % (Auto) [place] % (Auto) Eos % (Auto) Baso % (Auto) Lymph # (Auto) [place] # (Auto) Eos # (Auto) Baso # (Auto) Abs Immat Gran (auto) Absolute Neuts (auto) Absolute Nucleated RBC Nucleated RBC % (auto) ESR PT INR aPTT Heparin Protocol Sodium Potassium Chloride Carbon Dioxide Anion Gap BUN Creatinine Estim Creat Clear Calc Estimated GFR POC Glucose Random Glucose Lactic Acid Calcium Phosphorus Iron TIBC % Saturation Unsat Iron Binding Ferritin Total Bilirubin AST ALT Alkaline Phosphatase Troponin I High Sens 335.5 H* D 353.1 H* C-Reactive Protein Total Protein Albumin Vitamin B12 Folate Urine Color Urine Appearance Urine pH Ur Specific [place] Urine Protein Urine Glucose (UA) Urine Ketones Urine Blood Urine Nitrite Ur Leukocyte Esterase Urine RBC Urine WBC Ur Squamous Epith Cells Urine Bacteria Hyaline Casts Stool Occult Blood Stool Leukocytes, Qual Stl C. cayetanensis PCR Stool Rotavirus A PCR Stl Adenov F 40/41 PCR Stool Astrovirus (PCR) Stool Campylobacter PCR Stool Cryptosporidium PCR Stl Sh Tox Pr E STEC PCR Stool E coli O157 PCR Stl Enterotoxigenic E PCR Stool EPEC (PCR) Stool EAEC (PCR) Stl E. histolytica PCR Stool Giardia Lamblia PCR Stl P. shigelloides PCR Stool Salmonella PCR Stool Sapovirus (PCR) Stl Shigella/EIEC PCR St Y.enterocolitica PCR Stool Vibrio (PCR) Stl Vibrio cholerae PCR Stl Norovirus GI/GII PCR Random Vancomycin C. difficile Tox B Gene Influenza Type A (PCR) NEGATIVE Influenza Type B (PCR) NEGATIVE RSV RNA Qual (PCR) NEGATIVE SARS-CoV-2 RNA (RT-PCR) NEGATIVE Blood Type Antibody Screen Crossmatch 09/14/22 09/14/22 09/14/22 21:06 22:33 22:33 WBC 11.8 H RBC 2.65 L Hgb 6.9 L* Hct 21.4 L MCV 80.8 MCH 26.0 L MCHC 32.2 RDW 13.7 Plt Count 166 MPV 9.9 Immature Gran % (Auto) Neut % (Auto) Lymph % (Auto) [place] % (Auto) Eos % (Auto) Baso % (Auto) Lymph # (Auto) [place] # (Auto) Eos # (Auto) Baso # (Auto) Abs Immat Gran (auto) Absolute Neuts (auto) Absolute Nucleated RBC 0.000 Nucleated RBC % (auto) 0.0 ESR PT 13.1 INR 1.1 aPTT Heparin Protocol 28.1 L Sodium Potassium Chloride Carbon Dioxide Anion Gap BUN Creatinine Estim Creat Clear Calc Estimated GFR POC Glucose Random Glucose Lactic Acid Calcium Phosphorus Iron TIBC % Saturation Unsat Iron Binding Ferritin Total Bilirubin AST ALT Alkaline Phosphatase Troponin I High Sens 405.1 H* C-Reactive Protein Total Protein Albumin Vitamin B12 Folate Urine Color Urine Appearance Urine pH Ur Specific [place] Urine Protein Urine Glucose (UA) Urine Ketones Urine Blood Urine Nitrite Ur Leukocyte Esterase Urine RBC Urine WBC Ur Squamous Epith Cells Urine Bacteria Hyaline Casts Stool Occult Blood Stool Leukocytes, Qual Stl C. cayetanensis PCR Stool Rotavirus A PCR Stl Adenov F 40/41 PCR Stool Astrovirus (PCR) Stool Campylobacter PCR Stool Cryptosporidium PCR Stl Sh Tox Pr E STEC PCR Stool E coli O157 PCR Stl Enterotoxigenic E PCR Stool EPEC (PCR) Stool EAEC (PCR) Stl E. histolytica PCR Stool Giardia Lamblia PCR Stl P. shigelloides PCR Stool Salmonella PCR Stool Sapovirus (PCR) Stl Shigella/EIEC PCR St Y.enterocolitica PCR Stool Vibrio (PCR) Stl Vibrio cholerae PCR Stl Norovirus GI/GII PCR Random Vancomycin C. difficile Tox B Gene Influenza Type A (PCR) Influenza Type B (PCR) RSV RNA Qual (PCR) SARS-CoV-2 RNA (RT-PCR) Blood Type Antibody Screen Crossmatch 09/14/22 09/15/22 09/15/22 23:45 01:02 05:15 WBC RBC Hgb Hct MCV MCH MCHC RDW Plt Count MPV Immature Gran % (Auto) Neut % (Auto) Lymph % (Auto) [place] % (Auto) Eos % (Auto) Baso % (Auto) Lymph # (Auto) [place] # (Auto) Eos # (Auto) Baso # (Auto) Abs Immat Gran (auto) Absolute Neuts (auto) Absolute Nucleated RBC Nucleated RBC % (auto) ESR PT INR aPTT Heparin Protocol Sodium Potassium Chloride Carbon Dioxide Anion Gap BUN Creatinine Estim Creat Clear Calc Estimated GFR POC Glucose Random Glucose Lactic Acid Calcium Phosphorus Iron TIBC % Saturation Unsat Iron Binding Ferritin Total Bilirubin AST ALT Alkaline Phosphatase Troponin I High Sens 521.6 H* C-Reactive Protein Total Protein Albumin Vitamin B12 Folate Urine Color Yellow Urine Appearance Clear Urine pH 6.5 Ur Specific [place] 1.015 Urine Protein 300 (3+) H Urine Glucose (UA) Negative Urine Ketones Negative Urine Blood Negative Urine Nitrite Negative Ur Leukocyte Esterase Negative Urine RBC 0-2 Urine WBC 0-5 Ur Squamous Epith Cells 0-2 Urine Bacteria 4+ Hyaline Casts 0-2 Stool Occult Blood NEGATIVE Stool Leukocytes, Qual Stl C. cayetanensis PCR Stool Rotavirus A PCR Stl Adenov F 40/ PCR Stool Astrovirus (PCR) Stool Campylobacter PCR Stool Cryptosporidium PCR Stl Sh Tox Pr E STEC PCR Stool E coli O157 PCR Stl Enterotoxigenic E PCR Stool EPEC (PCR) Stool EAEC (PCR) Stl E. histolytica PCR Stool Giardia Lamblia PCR Stl P. shigelloides PCR Stool Salmonella PCR Stool Sapovirus (PCR) Stl Shigella/EIEC PCR St Y.enterocolitica PCR Stool Vibrio (PCR) Stl Vibrio cholerae PCR Stl Norovirus GI/GII PCR Random Vancomycin C. difficile Tox B Gene Influenza Type A (PCR) Influenza Type B (PCR) RSV RNA Qual (PCR) SARS-CoV-2 RNA (RT-PCR) Blood Type Antibody Screen Crossmatch 09/15/22 09/15/22 09/15/22 05:25 05:25 05:25 WBC 12.1 H RBC 2.85 L Hgb 7.2 L Hct 22.9 L MCV 80.4 MCH 25.3 L MCHC 31.4 RDW 13.8 Plt Count 196 MPV 10.5 Immature Gran % (Auto) 0.7 H Neut % (Auto) 72.8 Lymph % (Auto) 16.9 L [place] % (Auto) 8.0 Eos % (Auto) 1.4 Baso % (Auto) 0.2 Lymph # (Auto) 2.0 [place] # (Auto) 1.0 Eos # (Auto) 0.2 Baso # (Auto) 0.0 Abs Immat Gran (auto) 0.09 H Absolute Neuts (auto) 8.8 H Absolute Nucleated RBC 0.000 Nucleated RBC % (auto) 0.0 ESR PT 13.4 H INR 1.2 H aPTT Heparin Protocol 55.6 D Sodium Potassium Chloride Carbon Dioxide Anion Gap BUN Creatinine Estim Creat Clear Calc Estimated GFR POC Glucose Random Glucose Lactic Acid Calcium Phosphorus Iron TIBC % Saturation Unsat Iron Binding Ferritin Total Bilirubin AST ALT Alkaline Phosphatase Troponin I High Sens C-Reactive Protein Total Protein Albumin Vitamin B12 Folate Urine Color Urine Appearance Urine pH Ur Specific [place] Urine Protein Urine Glucose (UA) Urine Ketones Urine Blood Urine Nitrite Ur Leukocyte Esterase Urine RBC Urine WBC Ur Squamous Epith Cells Urine Bacteria Hyaline Casts Stool Occult Blood Stool Leukocytes, Qual Stl C. cayetanensis PCR Stool Rotavirus A PCR Stl Adenov F 40/41 PCR Stool Astrovirus (PCR) Stool Campylobacter PCR Stool Cryptosporidium PCR Stl Sh Tox Pr E STEC PCR Stool E coli O157 PCR Stl Enterotoxigenic E PCR Stool EPEC (PCR) Stool EAEC (PCR) Stl E. histolytica PCR Stool Giardia Lamblia PCR Stl P. shigelloides PCR Stool Salmonella PCR Stool Sapovirus (PCR) Stl Shigella/EIEC PCR St Y.enterocolitica PCR Stool Vibrio (PCR) Stl Vibrio cholerae PCR Stl Norovirus GI/GII PCR Random Vancomycin C. difficile Tox B Gene Influenza Type A (PCR) Influenza Type B (PCR) RSV RNA Qual (PCR) SARS-CoV-2 RNA (RT-PCR) Blood Type Antibody Screen Crossmatch 09/15/22 09/15/22 09/15/22 05:25 05:25 05:25 WBC RBC Hgb Hct MCV MCH MCHC RDW Plt Count MPV Immature Gran % (Auto) Neut % (Auto) Lymph % (Auto) [place] % (Auto) Eos % (Auto) Baso % (Auto) Lymph # (Auto) [place] # (Auto) Eos # (Auto) Baso # (Auto) Abs Immat Gran (auto) Absolute Neuts (auto) Absolute Nucleated RBC Nucleated RBC % (auto) ESR 121 H PT INR aPTT Heparin Protocol Sodium 139 Potassium 4.7 Chloride 108 Carbon Dioxide 18 L Anion Gap 18 BUN 67 H Creatinine 3.66 H Estim Creat Clear Calc 13.0 Estimated GFR 12 POC Glucose Random Glucose 100 Lactic Acid Calcium 8.3 L Phosphorus Iron 18 L TIBC 199 L % Saturation 9 L Unsat Iron Binding 181 Ferritin 300 H Total Bilirubin AST ALT Alkaline Phosphatase Troponin I High Sens C-Reactive Protein 6.39 H Total Protein Albumin Vitamin B12 393 Folate 9.5 Urine Color Urine Appearance Urine pH Ur Specific [place] Urine Protein Urine Glucose (UA) Urine Ketones Urine Blood Urine Nitrite Ur Leukocyte Esterase Urine RBC Urine WBC Ur Squamous Epith Cells Urine Bacteria Hyaline Casts Stool Occult Blood Stool Leukocytes, Qual Stl C. cayetanensis PCR Stool Rotavirus A PCR Stl Adenov F 40 PCR Stool Astrovirus (PCR) Stool Campylobacter PCR Stool Cryptosporidium PCR Stl Sh Tox Pr E STEC PCR Stool E coli O157 PCR Stl Enterotoxigenic E PCR Stool EPEC (PCR) Stool EAEC (PCR) Stl E. histolytica PCR Stool Giardia Lamblia PCR Stl P. shigelloides PCR Stool Salmonella PCR Stool Sapovirus (PCR) Stl Shigella/EIEC PCR St Y.enterocolitica PCR Stool Vibrio (PCR) Stl Vibrio cholerae PCR Stl Norovirus GI/GII PCR Random Vancomycin C. difficile Tox B Gene Influenza Type A (PCR) Influenza Type B (PCR) RSV RNA Qual (PCR) SARS-CoV-2 RNA (RT-PCR) Blood Type Antibody Screen Crossmatch 09/15/22 09/15/22 09/15/22 07:14 11:56 12:22 WBC RBC Hgb Hct MCV MCH MCHC RDW Plt Count MPV Immature Gran % (Auto) Neut % (Auto) Lymph % (Auto) [place] % (Auto) Eos % (Auto) Baso % (Auto) Lymph # (Auto) [place] # (Auto) Eos # (Auto) Baso # (Auto) Abs Immat Gran (auto) Absolute Neuts (auto) Absolute Nucleated RBC Nucleated RBC % (auto) ESR PT INR aPTT Heparin Protocol 54.7 Sodium Potassium Chloride Carbon Dioxide Anion Gap BUN Creatinine Estim Creat Clear Calc Estimated GFR POC Glucose 93 156 H Random Glucose Lactic Acid Calcium Phosphorus Iron TIBC % Saturation Unsat Iron Binding Ferritin Total Bilirubin AST ALT Alkaline Phosphatase Troponin I High Sens C-Reactive Protein Total Protein Albumin Vitamin B12 Folate Urine Color Urine Appearance Urine pH Ur Specific [place] Urine Protein Urine Glucose (UA) Urine Ketones Urine Blood Urine Nitrite Ur Leukocyte Esterase Urine RBC Urine WBC Ur Squamous Epith Cells Urine Bacteria Hyaline Casts Stool Occult Blood Stool Leukocytes, Qual Stl C. cayetanensis PCR Stool Rotavirus A PCR Stl Adenov F PCR Stool Astrovirus (PCR) Stool Campylobacter PCR Stool Cryptosporidium PCR Stl Sh Tox Pr E STEC PCR Stool E coli O157 PCR Stl Enterotoxigenic E PCR Stool EPEC (PCR) Stool EAEC (PCR) Stl E. histolytica PCR Stool Giardia Lamblia PCR Stl P. shigelloides PCR Stool Salmonella PCR Stool Sapovirus (PCR) Stl Shigella/EIEC PCR St Y.enterocolitica PCR Stool Vibrio (PCR) Stl Vibrio cholerae PCR Stl Norovirus GI/GII PCR Random Vancomycin C. difficile Tox B Gene Influenza Type A (PCR) Influenza Type B (PCR) RSV RNA Qual (PCR) SARS-CoV-2 RNA (RT-PCR) Blood Type Antibody Screen Crossmatch 09/15/22 09/15/22 09/15/22 15:30 16:55 18:21 WBC RBC Hgb 7.1 L Hct 22.1 L MCV MCH MCHC RDW Plt Count MPV Immature Gran % (Auto) Neut % (Auto) Lymph % (Auto) [place] % (Auto) Eos % (Auto) Baso % (Auto) Lymph # (Auto) [place] # (Auto) Eos # (Auto) Baso # (Auto) Abs Immat Gran (auto) Absolute Neuts (auto) Absolute Nucleated RBC Nucleated RBC % (auto) ESR PT INR aPTT Heparin Protocol Sodium Potassium Chloride Carbon Dioxide Anion Gap BUN Creatinine Estim Creat Clear Calc Estimated GFR POC Glucose 108 Random Glucose Lactic Acid Calcium Phosphorus Iron TIBC % Saturation Unsat Iron Binding Ferritin Total Bilirubin AST ALT Alkaline Phosphatase Troponin I High Sens C-Reactive Protein Total Protein Albumin Vitamin B12 Folate Urine Color Urine Appearance Urine pH Ur Specific [place] Urine Protein Urine Glucose (UA) Urine Ketones Urine Blood Urine Nitrite Ur Leukocyte Esterase Urine RBC Urine WBC Ur Squamous Epith Cells Urine Bacteria Hyaline Casts Stool Occult Blood Stool Leukocytes, Qual Stl C. cayetanensis PCR Stool Rotavirus A PCR Stl Adenov F 40/41 PCR Stool Astrovirus (PCR) Stool Campylobacter PCR Stool Cryptosporidium PCR Stl Sh Tox Pr E STEC PCR Stool E coli O157 PCR Stl Enterotoxigenic E PCR Stool EPEC (PCR) Stool EAEC (PCR) Stl E. histolytica PCR Stool Giardia Lamblia PCR Stl P. shigelloides PCR Stool Salmonella PCR Stool Sapovirus (PCR) Stl Shigella/EIEC PCR St Y.enterocolitica PCR Stool Vibrio (PCR) Stl Vibrio cholerae PCR Stl Norovirus GI/GII PCR Random Vancomycin C. difficile Tox B Gene Influenza Type A (PCR) Influenza Type B (PCR) RSV RNA Qual (PCR) SARS-CoV-2 RNA (RT-PCR) Blood Type B Positive Antibody Screen NEGATIVE Crossmatch See Detail 09/15/22 09/16/22 09/16/22 19:51 06:14 06:14 WBC RBC Hgb Hct MCV MCH MCHC RDW Plt Count MPV Immature Gran % (Auto) Neut % (Auto) Lymph % (Auto) [place] % (Auto) Eos % (Auto) Baso % (Auto) Lymph # (Auto) [place] # (Auto) Eos # (Auto) Baso # (Auto) Abs Immat Gran (auto) Absolute Neuts (auto) Absolute Nucleated RBC Nucleated RBC % (auto) ESR PT INR aPTT Heparin Protocol Sodium Potassium Chloride Carbon Dioxide Anion Gap BUN Creatinine 3.63 H Estim Creat Clear Calc 13.1 Estimated GFR 12 POC Glucose 108 Random Glucose Lactic Acid Calcium Phosphorus 4.2 Iron TIBC % Saturation Unsat Iron Binding Ferritin Total Bilirubin AST ALT Alkaline Phosphatase Troponin I High Sens C-Reactive Protein Total Protein Albumin Vitamin B12 Folate Urine Color Urine Appearance Urine pH Ur Specific [place] Urine Protein Urine Glucose (UA) Urine Ketones Urine Blood Urine Nitrite Ur Leukocyte Esterase Urine RBC Urine WBC Ur Squamous Epith Cells Urine Bacteria Hyaline Casts Stool Occult Blood Stool Leukocytes, Qual Stl C. cayetanensis PCR Stool Rotavirus A PCR Stl Adenov F 40/41 PCR Stool Astrovirus (PCR) Stool Campylobacter PCR Stool Cryptosporidium PCR Stl Sh Tox Pr E STEC PCR Stool E coli O157 PCR Stl Enterotoxigenic E PCR Stool EPEC (PCR) Stool EAEC (PCR) Stl E. histolytica PCR Stool Giardia Lamblia PCR Stl P. shigelloides PCR Stool Salmonella PCR Stool Sapovirus (PCR) Stl Shigella/EIEC PCR St Y.enterocolitica PCR Stool Vibrio (PCR) Stl Vibrio cholerae PCR Stl Norovirus GI/GII PCR Random Vancomycin C. difficile Tox B Gene Influenza Type A (PCR) Influenza Type B (PCR) RSV RNA Qual (PCR) SARS-CoV-2 RNA (RT-PCR) Blood Type Antibody Screen Crossmatch 09/16/22 09/16/22 09/16/22 06:14 06:14 06:14 WBC 12.2 H RBC 2.94 L Hgb 7.9 L Hct 24.5 L MCV 83.3 MCH 26.9 L MCHC 32.2 RDW 14.2 Plt Count 176 MPV 11.0 Immature Gran % (Auto) Neut % (Auto) Lymph % (Auto) [place] % (Auto) Eos % (Auto) Baso % (Auto) Lymph # (Auto) [place] # (Auto) Eos # (Auto) Baso # (Auto) Abs Immat Gran (auto) Absolute Neuts (auto) Absolute Nucleated RBC 0.000 Nucleated RBC % (auto) 0.0 ESR PT INR aPTT Heparin Protocol 60.5 Sodium 138 Potassium 3.9 Chloride 107 Carbon Dioxide 18 L Anion Gap 17 BUN 62 H Creatinine 3.62 H Estim Creat Clear Calc 13.2 Estimated GFR 12 POC Glucose Random Glucose 83 Lactic Acid Calcium 8.1 L Phosphorus Iron TIBC % Saturation Unsat Iron Binding Ferritin Total Bilirubin AST ALT Alkaline Phosphatase Troponin I High Sens C-Reactive Protein Total Protein Albumin Vitamin B12 Folate Urine Color Urine Appearance Urine pH Ur Specific [place] Urine Protein Urine Glucose (UA) Urine Ketones Urine Blood Urine Nitrite Ur Leukocyte Esterase Urine RBC Urine WBC Ur Squamous Epith Cells Urine Bacteria Hyaline Casts Stool Occult Blood Stool Leukocytes, Qual Stl C. cayetanensis PCR Stool Rotavirus A PCR Stl Adenov F 40/41 PCR Stool Astrovirus (PCR) Stool Campylobacter PCR Stool Cryptosporidium PCR Stl Sh Tox Pr E STEC PCR Stool E coli O157 PCR Stl Enterotoxigenic E PCR Stool EPEC (PCR) Stool EAEC (PCR) Stl E. histolytica PCR Stool Giardia Lamblia PCR Stl P. shigelloides PCR Stool Salmonella PCR Stool Sapovirus (PCR) Stl Shigella/EIEC PCR St Y.enterocolitica PCR Stool Vibrio (PCR) Stl Vibrio cholerae PCR Stl Norovirus GI/GII PCR Random Vancomycin C. difficile Tox B Gene Influenza Type A (PCR) Influenza Type B (PCR) RSV RNA Qual (PCR) SARS-CoV-2 RNA (RT-PCR) Blood Type Antibody Screen Crossmatch 09/16/22 09/16/22 09/16/22 07:34 11:23 16:02 WBC RBC Hgb Hct MCV MCH MCHC RDW Plt Count MPV Immature Gran % (Auto) Neut % (Auto) Lymph % (Auto) [place] % (Auto) Eos % (Auto) Baso % (Auto) Lymph # (Auto) [place] # (Auto) Eos # (Auto) Baso # (Auto) Abs Immat Gran (auto) Absolute Neuts (auto) Absolute Nucleated RBC Nucleated RBC % (auto) ESR PT INR aPTT Heparin Protocol Sodium Potassium Chloride Carbon Dioxide Anion Gap BUN Creatinine Estim Creat Clear Calc Estimated GFR POC Glucose 79 202 H 124 H Random Glucose Lactic Acid Calcium Phosphorus Iron TIBC % Saturation Unsat Iron Binding Ferritin Total Bilirubin AST ALT Alkaline Phosphatase Troponin I High Sens C-Reactive Protein Total Protein Albumin Vitamin B12 Folate Urine Color Urine Appearance Urine pH Ur Specific [place] Urine Protein Urine Glucose (UA) Urine Ketones Urine Blood Urine Nitrite Ur Leukocyte Esterase Urine RBC Urine WBC Ur Squamous Epith Cells Urine Bacteria Hyaline Casts Stool Occult Blood Stool Leukocytes, Qual Stl C. cayetanensis PCR Stool Rotavirus A PCR Stl Adenov F 40/41 PCR Stool Astrovirus (PCR) Stool Campylobacter PCR Stool Cryptosporidium PCR Stl Sh Tox Pr E STEC PCR Stool E coli O157 PCR Stl Enterotoxigenic E PCR Stool EPEC (PCR) Stool EAEC (PCR) Stl E. histolytica PCR Stool Giardia Lamblia PCR Stl P. shigelloides PCR Stool Salmonella PCR Stool Sapovirus (PCR) Stl Shigella/EIEC PCR St Y.enterocolitica PCR Stool Vibrio (PCR) Stl Vibrio cholerae PCR Stl Norovirus GI/GII PCR Random Vancomycin C. difficile Tox B Gene Influenza Type A (PCR) Influenza Type B (PCR) RSV RNA Qual (PCR) SARS-CoV-2 RNA (RT-PCR) Blood Type Antibody Screen Crossmatch 09/16/22 09/16/22 09/16/22 16:28 19:34 23:20 WBC RBC Hgb Hct MCV MCH MCHC RDW Plt Count MPV Immature Gran % (Auto) Neut % (Auto) Lymph % (Auto) [place] % (Auto) Eos % (Auto) Baso % (Auto) Lymph # (Auto) [place] # (Auto) Eos # (Auto) Baso # (Auto) Abs Immat Gran (auto) Absolute Neuts (auto) Absolute Nucleated RBC Nucleated RBC % (auto) ESR PT INR aPTT Heparin Protocol Sodium Potassium Chloride Carbon Dioxide Anion Gap BUN Creatinine Estim Creat Clear Calc Estimated GFR POC Glucose 187 H Random Glucose Lactic Acid Calcium Phosphorus Iron TIBC % Saturation Unsat Iron Binding Ferritin Total Bilirubin AST ALT Alkaline Phosphatase Troponin I High Sens C-Reactive Protein Total Protein Albumin Vitamin B12 Folate Urine Color Urine Appearance Urine pH Ur Specific [place] Urine Protein Urine Glucose (UA) Urine Ketones Urine Blood Urine Nitrite Ur Leukocyte Esterase Urine RBC Urine WBC Ur Squamous Epith Cells Urine Bacteria Hyaline Casts Stool Occult Blood Stool Leukocytes, Qual NEGATIVE Stl C. cayetanensis PCR Stool Rotavirus A PCR Stl Adenov F PCR Stool Astrovirus (PCR) Stool Campylobacter PCR Stool Cryptosporidium PCR Stl Sh Tox Pr E STEC PCR Stool E coli O157 PCR Stl Enterotoxigenic E PCR Stool EPEC (PCR) Stool EAEC (PCR) Stl E. histolytica PCR Stool Giardia Lamblia PCR Stl P. shigelloides PCR Stool Salmonella PCR Stool Sapovirus (PCR) Stl Shigella/EIEC PCR St Y.enterocolitica PCR Stool Vibrio (PCR) Stl Vibrio cholerae PCR Stl Norovirus GI/GII PCR Random Vancomycin 14.0 L C. difficile Tox B Gene Influenza Type A (PCR) Influenza Type B (PCR) RSV RNA Qual (PCR) SARS-CoV-2 RNA (RT-PCR) Blood Type Antibody Screen Crossmatch 09/16/22 09/17/22 09/17/22 23:20 06:41 06:41 WBC RBC Hgb Hct MCV MCH MCHC RDW Plt Count MPV Immature Gran % (Auto) Neut % (Auto) Lymph % (Auto) [place] % (Auto) Eos % (Auto) Baso % (Auto) Lymph # (Auto) [place] # (Auto) Eos # (Auto) Baso # (Auto) Abs Immat Gran (auto) Absolute Neuts (auto) Absolute Nucleated RBC Nucleated RBC % (auto) ESR PT INR aPTT Heparin Protocol 26.4 L D Sodium Potassium Chloride Carbon Dioxide Anion Gap BUN Creatinine 3.87 H Estim Creat Clear Calc 12.3 Estimated GFR 12 POC Glucose Random Glucose Lactic Acid Calcium Phosphorus Iron TIBC % Saturation Unsat Iron Binding Ferritin Total Bilirubin AST ALT Alkaline Phosphatase Troponin I High Sens C-Reactive Protein Total Protein Albumin Vitamin B12 Folate Urine Color Urine Appearance Urine pH Ur Specific [place] Urine Protein Urine Glucose (UA) Urine Ketones Urine Blood Urine Nitrite Ur Leukocyte Esterase Urine RBC Urine WBC Ur Squamous Epith Cells Urine Bacteria Hyaline Casts Stool Occult Blood Stool Leukocytes, Qual Stl C. cayetanensis PCR Stool Rotavirus A PCR Stl Adenov PCR Stool Astrovirus (PCR) Stool Campylobacter PCR Stool Cryptosporidium PCR Stl Sh Tox Pr E STEC PCR Stool E coli O157 PCR Stl Enterotoxigenic E PCR Stool EPEC (PCR) Stool EAEC (PCR) Stl E. histolytica PCR Stool Giardia Lamblia PCR Stl P. shigelloides PCR Stool Salmonella PCR Stool Sapovirus (PCR) Stl Shigella/EIEC PCR St Y.enterocolitica PCR Stool Vibrio (PCR) Stl Vibrio cholerae PCR Stl Norovirus GI/GII PCR Random Vancomycin C. difficile Tox B Gene NEGATIVE Influenza Type A (PCR) Influenza Type B (PCR) RSV RNA Qual (PCR) SARS-CoV-2 RNA (RT-PCR) Blood Type Antibody Screen Crossmatch 09/17/22 09/17/22 09/17/22 07:18 08:24 08:24 WBC RBC Hgb 8.0 L Hct 25.2 L MCV MCH MCHC RDW Plt Count MPV Immature Gran % (Auto) Neut % (Auto) Lymph % (Auto) [place] % (Auto) Eos % (Auto) Baso % (Auto) Lymph # (Auto) [place] # (Auto) Eos # (Auto) Baso # (Auto) Abs Immat Gran (auto) Absolute Neuts (auto) Absolute Nucleated RBC Nucleated RBC % (auto) ESR PT INR aPTT Heparin Protocol Sodium 138 Potassium 4.1 Chloride 106 Carbon Dioxide 17 L Anion Gap 19 BUN 61 H Creatinine 3.89 H Estim Creat Clear Calc 12.2 Estimated GFR 11 POC Glucose 114 Random Glucose 156 H Lactic Acid Calcium 8.1 L Phosphorus Iron TIBC % Saturation Unsat Iron Binding Ferritin Total Bilirubin AST ALT Alkaline Phosphatase Troponin I High Sens C-Reactive Protein Total Protein Albumin Vitamin B12 Folate Urine Color Urine Appearance Urine pH Ur Specific [place] Urine Protein Urine Glucose (UA) Urine Ketones Urine Blood Urine Nitrite Ur Leukocyte Esterase Urine RBC Urine WBC Ur Squamous Epith Cells Urine Bacteria Hyaline Casts Stool Occult Blood Stool Leukocytes, Qual Stl C. cayetanensis PCR Stool Rotavirus A PCR Stl Adenov F 40/41 PCR Stool Astrovirus (PCR) Stool Campylobacter PCR Stool Cryptosporidium PCR Stl Sh Tox Pr E STEC PCR Stool E coli O157 PCR Stl Enterotoxigenic E PCR Stool EPEC (PCR) Stool EAEC (PCR) Stl E. histolytica PCR Stool Giardia Lamblia PCR Stl P. shigelloides PCR Stool Salmonella PCR Stool Sapovirus (PCR) Stl Shigella/EIEC PCR St Y.enterocolitica PCR Stool Vibrio (PCR) Stl Vibrio cholerae PCR Stl Norovirus GI/GII PCR Random Vancomycin C. difficile Tox B Gene Influenza Type A (PCR) Influenza Type B (PCR) RSV RNA Qual (PCR) SARS-CoV-2 RNA (RT-PCR) Blood Type Antibody Screen Crossmatch 09/17/22 09/17/22 09/17/22 10:57 15:29 18:30 WBC RBC Hgb Hct MCV MCH MCHC RDW Plt Count MPV Immature Gran % (Auto) Neut % (Auto) Lymph % (Auto) [place] % (Auto) Eos % (Auto) Baso % (Auto) Lymph # (Auto) [place] # (Auto) Eos # (Auto) Baso # (Auto) Abs Immat Gran (auto) Absolute Neuts (auto) Absolute Nucleated RBC Nucleated RBC % (auto) ESR PT INR aPTT Heparin Protocol Sodium Potassium Chloride Carbon Dioxide Anion Gap BUN Creatinine Estim Creat Clear Calc Estimated GFR POC Glucose 190 H 202 H Random Glucose Lactic Acid Calcium Phosphorus Iron TIBC % Saturation Unsat Iron Binding Ferritin Total Bilirubin AST ALT Alkaline Phosphatase Troponin I High Sens C-Reactive Protein Total Protein Albumin Vitamin B12 Folate Urine Color Urine Appearance Urine pH Ur Specific [place] Urine Protein Urine Glucose (UA) Urine Ketones Urine Blood Urine Nitrite Ur Leukocyte Esterase Urine RBC Urine WBC Ur Squamous Epith Cells Urine Bacteria Hyaline Casts Stool Occult Blood Stool Leukocytes, Qual Stl C. cayetanensis PCR Not Detected Stool Rotavirus A PCR Not Detected Stl Adenov F 40/41 PCR Not Detected Stool Astrovirus (PCR) Not Detected Stool Campylobacter PCR Not Detected Stool Cryptosporidium PCR Not Detected Stl Sh Tox Pr E STEC PCR Not Detected Stool E coli O157 PCR Not applicable Stl Enterotoxigenic E PCR Not Detected Stool EPEC (PCR) Not Detected Stool EAEC (PCR) Not Detected Stl E. histolytica PCR Not Detected Stool Giardia Lamblia PCR Not Detected Stl P. shigelloides PCR Not Detected Stool Salmonella PCR Not Detected Stool Sapovirus (PCR) Not Detected Stl Shigella/EIEC PCR Not Detected St Y.enterocolitica PCR Not Detected Stool Vibrio (PCR) Not Detected Stl Vibrio cholerae PCR Not Detected Stl Norovirus GI/GII PCR Not Detected Random Vancomycin C. difficile Tox B Gene Influenza Type A (PCR) Influenza Type B (PCR) RSV RNA Qual (PCR) SARS-CoV-2 RNA (RT-PCR) Blood Type Antibody Screen Crossmatch 09/17/22 09/18/22 09/18/22 20:27 06:18 07:35 WBC RBC Hgb Hct MCV MCH MCHC RDW Plt Count MPV Immature Gran % (Auto) Neut % (Auto) Lymph % (Auto) [place] % (Auto) Eos % (Auto) Baso % (Auto) Lymph # (Auto) [place] # (Auto) Eos # (Auto) Baso # (Auto) Abs Immat Gran (auto) Absolute Neuts (auto) Absolute Nucleated RBC Nucleated RBC % (auto) ESR PT INR aPTT Heparin Protocol Sodium Potassium Chloride Carbon Dioxide Anion Gap BUN Creatinine 3.72 H Estim Creat Clear Calc 12.8 Estimated GFR 12 POC Glucose 151 H 102 Random Glucose Lactic Acid Calcium Phosphorus Iron TIBC % Saturation Unsat Iron Binding Ferritin Total Bilirubin AST ALT Alkaline Phosphatase Troponin I High Sens C-Reactive Protein Total Protein Albumin Vitamin B12 Folate Urine Color Urine Appearance Urine pH Ur Specific [place] Urine Protein Urine Glucose (UA) Urine Ketones Urine Blood Urine Nitrite Ur Leukocyte Esterase Urine RBC Urine WBC Ur Squamous Epith Cells Urine Bacteria Hyaline Casts Stool Occult Blood Stool Leukocytes, Qual Stl C. cayetanensis PCR Stool Rotavirus A PCR Stl Adenov F 40/41 PCR Stool Astrovirus (PCR) Stool Campylobacter PCR Stool Cryptosporidium PCR Stl Sh Tox Pr E STEC PCR Stool E coli O157 PCR Stl Enterotoxigenic E PCR Stool EPEC (PCR) Stool EAEC (PCR) Stl E. histolytica PCR Stool Giardia Lamblia PCR Stl P. shigelloides PCR Stool Salmonella PCR Stool Sapovirus (PCR) Stl Shigella/EIEC PCR St Y.enterocolitica PCR Stool Vibrio (PCR) Stl Vibrio cholerae PCR Stl Norovirus GI/GII PCR Random Vancomycin C. difficile Tox B Gene Influenza Type A (PCR) Influenza Type B (PCR) RSV RNA Qual (PCR) SARS-CoV-2 RNA (RT-PCR) Blood Type Antibody Screen Crossmatch 09/18/22 09/18/22 09/18/22 11:13 15:32 17:02 WBC RBC Hgb Hct MCV MCH MCHC RDW Plt Count MPV Immature Gran % (Auto) Neut % (Auto) Lymph % (Auto) [place] % (Auto) Eos % (Auto) Baso % (Auto) Lymph # (Auto) [place] # (Auto) Eos # (Auto) Baso # (Auto) Abs Immat Gran (auto) Absolute Neuts (auto) Absolute Nucleated RBC Nucleated RBC % (auto) ESR PT INR aPTT Heparin Protocol Sodium Potassium Chloride Carbon Dioxide Anion Gap BUN Creatinine Estim Creat Clear Calc Estimated GFR POC Glucose 209 H 217 H Random Glucose Lactic Acid Calcium Phosphorus Iron TIBC % Saturation Unsat Iron Binding Ferritin Total Bilirubin AST ALT Alkaline Phosphatase Troponin I High Sens C-Reactive Protein Total Protein Albumin Vitamin B12 Folate Urine Color Urine Appearance Urine pH Ur Specific [place] Urine Protein Urine Glucose (UA) Urine Ketones Urine Blood Urine Nitrite Ur Leukocyte Esterase Urine RBC Urine WBC Ur Squamous Epith Cells Urine Bacteria Hyaline Casts Stool Occult Blood Stool Leukocytes, Qual Stl C. cayetanensis PCR Stool Rotavirus A PCR Stl Adenov F 40/41 PCR Stool Astrovirus (PCR) Stool Campylobacter PCR Stool Cryptosporidium PCR Stl Sh Tox Pr E STEC PCR Stool E coli O157 PCR Stl Enterotoxigenic E PCR Stool EPEC (PCR) Stool EAEC (PCR) Stl E. histolytica PCR Stool Giardia Lamblia PCR Stl P. shigelloides PCR Stool Salmonella PCR Stool Sapovirus (PCR) Stl Shigella/EIEC PCR St Y.enterocolitica PCR Stool Vibrio (PCR) Stl Vibrio cholerae PCR Stl Norovirus GI/GII PCR Random Vancomycin 16.8 C. difficile Tox B Gene Influenza Type A (PCR) Influenza Type B (PCR) RSV RNA Qual (PCR) SARS-CoV-2 RNA (RT-PCR) Blood Type Antibody Screen Crossmatch 09/18/22 09/19/22 09/19/22 19:05 05:27 05:27 WBC 10.8 RBC 2.94 L Hgb 7.7 L Hct 24.2 L MCV 82.3 MCH 26.2 L MCHC 31.8 RDW 14.1 Plt Count 196 MPV 10.2 Immature Gran % (Auto) Neut % (Auto) Lymph % (Auto) [place] % (Auto) Eos % (Auto) Baso % (Auto) Lymph # (Auto) [place] # (Auto) Eos # (Auto) Baso # (Auto) Abs Immat Gran (auto) Absolute Neuts (auto) Absolute Nucleated RBC 0.000 Nucleated RBC % (auto) 0.0 ESR PT INR aPTT Heparin Protocol Sodium Potassium Chloride Carbon Dioxide Anion Gap BUN Creatinine 3.68 H Estim Creat Clear Calc 12.9 Estimated GFR 12 POC Glucose 186 H Random Glucose Lactic Acid Calcium Phosphorus Iron TIBC % Saturation Unsat Iron Binding Ferritin Total Bilirubin AST ALT Alkaline Phosphatase Troponin I High Sens C-Reactive Protein Total Protein Albumin Vitamin B12 Folate Urine Color Urine Appearance Urine pH Ur Specific [place] Urine Protein Urine Glucose (UA) Urine Ketones Urine Blood Urine Nitrite Ur Leukocyte Esterase Urine RBC Urine WBC Ur Squamous Epith Cells Urine Bacteria Hyaline Casts Stool Occult Blood Stool Leukocytes, Qual Stl C. cayetanensis PCR Stool Rotavirus A PCR Stl Adenov F 40 PCR Stool Astrovirus (PCR) Stool Campylobacter PCR Stool Cryptosporidium PCR Stl Sh Tox Pr E STEC PCR Stool E coli O157 PCR Stl Enterotoxigenic E PCR Stool EPEC (PCR) Stool EAEC (PCR) Stl E. histolytica PCR Stool Giardia Lamblia PCR Stl P. shigelloides PCR Stool Salmonella PCR Stool Sapovirus (PCR) Stl Shigella/EIEC PCR St Y.enterocolitica PCR Stool Vibrio (PCR) Stl Vibrio cholerae PCR Stl Norovirus GI/GII PCR Random Vancomycin C. difficile Tox B Gene Influenza Type A (PCR) Influenza Type B (PCR) RSV RNA Qual (PCR) SARS-CoV-2 RNA (RT-PCR) Blood Type Antibody Screen Crossmatch 09/19/22 09/19/22 07:29 08:07 WBC RBC Hgb Hct MCV MCH MCHC RDW Plt Count MPV Immature Gran % (Auto) Neut % (Auto) Lymph % (Auto) [place] % (Auto) Eos % (Auto) Baso % (Auto) Lymph # (Auto) [place] # (Auto) Eos # (Auto) Baso # (Auto) Abs Immat Gran (auto) Absolute Neuts (auto) Absolute Nucleated RBC Nucleated RBC % (auto) ESR PT INR aPTT Heparin Protocol Sodium Potassium Chloride Carbon Dioxide Anion Gap BUN Creatinine Estim Creat Clear Calc Estimated GFR POC Glucose 124 H Random Glucose Lactic Acid Calcium Phosphorus Iron TIBC % Saturation Unsat Iron Binding Ferritin Total Bilirubin AST ALT Alkaline Phosphatase Troponin I High Sens C-Reactive Protein Total Protein Albumin Vitamin B12 Folate Urine Color Urine Appearance Urine pH Ur Specific [place] Urine Protein Urine Glucose (UA) Urine Ketones Urine Blood Urine Nitrite Ur Leukocyte Esterase Urine RBC Urine WBC Ur Squamous Epith Cells Urine Bacteria Hyaline Casts Stool Occult Blood Stool Leukocytes, Qual Stl C. cayetanensis PCR Stool Rotavirus A PCR Stl Adenov F 40/41 PCR Stool Astrovirus (PCR) Stool Campylobacter PCR Stool Cryptosporidium PCR Stl Sh Tox Pr E STEC PCR Stool E coli O157 PCR Stl Enterotoxigenic E PCR Stool EPEC (PCR) Stool EAEC (PCR) Stl E. histolytica PCR Stool Giardia Lamblia PCR Stl P. shigelloides PCR Stool Salmonella PCR Stool Sapovirus (PCR) Stl Shigella/EIEC PCR St Y.enterocolitica PCR Stool Vibrio (PCR) Stl Vibrio cholerae PCR Stl Norovirus GI/GII PCR Random Vancomycin C. difficile Tox B Gene Influenza Type A (PCR) Influenza Type B (PCR) RSV RNA Qual (PCR) SARS-CoV-2 RNA (RT-PCR) Blood Type B Positive Antibody Screen NEGATIVE Crossmatch Airway Mallampati Class: II TM Dist: <=3cm Neck ROM: Full Heart: [place] no M or G Lungs: CTA Assessment and Plan Assessment Anesthesia Assessment: Anesthesia Plan Discussed and Chart Reviewed Final Anesthetic Review Family History of Problems with Anesthesia: No History of Problems with Anesthesia: No NPO: Yes ASA Class: IV Final Preanesthetic Review: No Changes in Pt Med Stat, Meds/Allgs Chart Reviewed, Consent Obtained/Reviewed and Anes Risks/Benef Reviewed Patient Risk: High Procedure Risk: Low Anesthetic Plan Anesthetic Plan: MAC:
[2022-09-19 09:32] LABS: Anion Gap 18 (12-20); Blood Urea Nitrogen 50 mg/dL (9-16); Calcium 8.1 mg/dL (8.4-10.2); Carbon Dioxide 23 mmol/L (22-29); Chloride 105 mmol/L (96-108); Glucose Random 117 mg/dL (60-115); Potassium 3.9 mmol/L (3.3-5.1); Sodium 142 mmol/L (135-145)
--- NOTE | 2022-09-19 10:00 | PC.NURSE ---
md bonds aware of plavix dose given this am. ok to proceed.
--- NOTE | 2022-09-19 10:03 | MHC.SHP ---
Pre-Procedural Eval Section A Date of Service: 09/19/22 The patient is an INPATIENT: No Changes since office visit: No Cold of Flu in the past 2 weeks, No New Medical Problems, No Changes in Medication and No Patient answered all questions The History & Physical has been completed within 30 days and I have reviewed it.: Yes Section B Chief Complaint: diabetic wound, NSTEMI Allergies: Allergies Allergy/AdvReac Type Severity Reaction Status Date / Time latex [LATEX] Allergy Intermediate ITCHY Verified 06/29/21 13:08 Plan I have reviewed the history and physical and performed a pertinent physical examination on my patient. No changes have occurred unless specified. Time Spent With Patient Time: Total time managing care of this patient today ____ minutes.
--- NOTE | 2022-09-19 10:04 | W.PM.OPN ---
Operative Note Operative Note Date of Service: 09/19/22 Narrative: Operative Note Narrative: Preop diagnosis: 1. Left index finger tip necrosis, recent infection Postop diagnosis: Same Procedure: 1. Left index finger I and D of bone and soft tissue 2. Left index finger middle phalanx level amputation Surgeon: Toya Panchal MD Anesthesia: General Anesthesia Findings: No gross purulence. Finger pain, but minimal bleeding at amputation site Implants: None Tourniquet time: 0 minutes EBL: 5.0 ml Specimen: Left index fingertip sent to pathology, plus cultures Drains: None Complications: None Disposition: Brought to the recovery room in stable condition Plan: Admit back to floor for IV antibiotics. Follow-up in 5-7 days for wound check, and to check pathology Indications: The patient is a 67 year old woman with diabetes, end-stage renal disease, and left index finger tip necrosis with an infection that is been treated with IV antibiotics for the last few days. . The risks and benefits of operative treatment, including but not limited to risk of damage to blood vessels, nerves, tendons, infection, recurrence, persistent pain or numbness, incomplete resolution of preoperative symptoms, or need for further surgery were discussed with the patient and they wished to proceed with surgery. Procedure: Once consent was obtained patient was brought back to the operating suite and placed in the operating table in a supine position. Anesthesia was administered by the anesthesia team. The patient has an IV in the dorsal aspect of the left distal forearm. In talking with Anesthesia it was felt that was important to try to leave this IV in place of possible. He placed a cap on it we placed a Tegaderm over the IV site. A tourniquet was applied to the proximal forearm of the left upper extremity and the limb was prepped and draped in a standard surgical fashion. The limb was elevated exsanguinated with Esmarch bandage and the tourniquet inflated to 250 mm of mercury for a total tourniquet time of 0 minutes. A digital block was performed by infiltrating about the base of the left index finger with some 0.5% plain ropivacaine. A fishmouth type incision was made about the left index finger just distal to the PIP joint. This was done using a 15. Blade down to bone. The middle phalanx was cut using a bone biter at the proximal aspect of the middle phalanx and the distal aspect of the digit removed and placed on the table to be sent for pathology. Cultures were then taken. No gross purulence noted. The wound including the middle phalanx bone was then copiously irrigated with normal saline. The finger was noted to be pink, but there was minimal bleeding at the amputation site. The wound was again copiously irrigated with normal saline. The skin edges were reapproximated with 5-0 nylon suture, and a sterile dressing was applied. The patient appears to have tolerated the procedure well and with no complications. All digits were well vascularized conclusion of the case.
--- NOTE | 2022-09-19 11:43 | P.PNIM_ITS ---
Subjective Subjective Date of Service: 09/19/22 Interval History: nstemi,cellulitis Review of Systems Denies any chest pain or shortness of breath or abdominal pain or no finger pain either No fever or chills has some diarrhae Physical Exam Vital Signs: Vital Signs: Last Vital Signs Temp 98.9 F 09/19/22 11:27 Pulse 63 09/19/22 11:27 Resp 16 09/19/22 11:27 BP 155/99 H 09/19/22 11:27 Pulse Ox 94 09/19/22 11:27 O2 Del Method 09/19/22 11:27 O2 Flow Rate 2 09/19/22 07:23 Oxygen Flow Rate 2 09/14/22 17:05 BMI result Body Mass Index 37.3 Appearance: Alert.? Oriented X3.? not in distress.? cvs: rrr, [id number] . res: clear to auscultation ,no rhonchii or wheezing abd: no rebound or guarding ,nt, bs present. skin:unchanged from yesterday. neuro: axo3 , nonfocal. Objective Data Active Medications Acetaminophen (Acetaminophen 325 Mg Tablet) 650 mg PO Q6H PRN PRN Reason: Pain, Mild (Pain Scale 1-3) Last Admin: 09/15/22 15:30 Dose: 650 mg Documented By: LISA Acetaminophen (Acetaminophen 325 Mg Tablet) 650 mg PO ONCE PRN PRN Reason: Pain, Mild (Pain Scale 1-3) Albuterol/Ipratropium (Albuterol/Iprat 2.5/0.5mg 3 Ml Ampul.Neb) 3 ml INHALE RQ4H PRN PRN Reason: Wheezing Amlodipine Besylate (Amlodipine Besylate 10 Mg Tablet) 10 mg PO DAILY [facility]; Protocol Last Admin: 09/19/22 09:09 Dose: 10 mg Documented By: HEDY Aspirin (Aspirin Enteric Coated 81 Mg Tablet.) 81 mg PO BEDTIME [facility] Last Admin: 09/18/22 21:21 Dose: 81 mg Documented By: MIGUEL Atorvastatin Calcium (Atorvastatin Calcium 80 Mg Tablet) 80 mg PO BEDTIME [facility] Last Admin: 09/18/22 21:21 Dose: 80 mg Documented By: MIGUEL Calcium Carbonate/Cholecalciferol (Calcium + Vitamin D 250 Mg Tablet) 250 mg PO BID [facility] Last Admin: 09/19/22 09:10 Dose: 250 mg Documented By: HEDY Carvedilol (Carvedilol 6.25 Mg Tablet) 6.25 mg PO BID [facility]; Protocol Last Admin: 09/19/22 09:10 Dose: 6.25 mg Documented By: HEDY Clopidogrel Bisulfate (Clopidogrel Bisulfate 75 Mg Tablet) 75 mg PO DAILY [facility] Last Admin: 09/19/22 09:10 Dose: 75 mg Documented By: HEDY Dextrose (Dextrose 50 % 25 Gm/50 Ml Syringe) 25 gm IVPUSH Q15M PRN; Protocol PRN Reason: per Hypoglycemia Standing Ord. Famotidine (Famotidine 20 Mg Tablet) 20 mg PO Q2D@0900 [facility] Last Admin: 09/19/22 09:10 Dose: 20 mg Documented By: HEDY Fentanyl (Fentanyl Citrate/Pf 100 Mcg/2 Ml Vial) 25 mcg IVPUSH Q5M PRN; Protocol PRN Reason: Pain, Moderate (Pain Scale 4-6 Furosemide (Furosemide 40 Mg Tablet) 40 mg PO BIDWM [facility]; Protocol Last Admin: 09/19/22 09:09 Dose: 40 mg Documented By: HEDY Glucose (Glucose Gel 15 Gm Gel..Gram.) 15 gm PO Q15M PRN; Protocol PRN Reason: per Hypoglycemia Standing Ord. Hydromorphone HCl (Hydromorphone Hcl 0.5 Mg/0.5 Ml Syringe) 0.25 mg IVPUSH Q5M PRN; Protocol PRN Reason: Pain, Severe (Pain Scale 7-10) Vancomycin HCl 750 mg/ Sodium (Chloride) 265 mls @ 265 mls/hr IV Q48H [facility] Last Infusion: 09/18/22 18:57 Dose: 0 mls/hr Documented By: HEDY Piperacillin Sod/Tazobactam (Sod 2.25 gm/ Sodium Chloride) 50 mls @ 100 mls/hr IV Q6H [facility] Last Infusion: 09/19/22 04:33 Dose: 0 mls/hr Documented By: MIGUEL Insulin Glargine (Insulin Glargine,Hum.Rec.Anlog 100 Unit/Ml 10 Ml Vial) 18 unit SUBCUT DAILY [facility] Last Admin: 09/19/22 09:15 Dose: 18 unit Documented By: HEDY Insulin Human Lispro (Insulin Lispro 100 Unit/Ml 3 Ml Vial) 0 unit SUBCUT QIDACHS [facility]; Protocol Last Admin: 09/19/22 08:08 Dose: Not Given Documented By: HEDY Non-Admin Reason: No Insulin Coverage Isosorbide Mononitrate (Isosorbide Mononitrate 60 Mg Tab.Er.24h) 60 mg PO DAILY [facility]; Protocol Last Admin: 09/19/22 09:10 Dose: 60 mg Documented By: HEDY Loperamide HCl (Loperamide Hcl 2 Mg Capsule) 2 mg PO Q4H PRN PRN Reason: Diaper Rash Last Admin: 09/18/22 23:23 Dose: 2 mg Documented By: MIGUEL Omeprazole (Omeprazole 20 Mg Capsule.Dr) 20 mg PO BID@0630,1630 [facility] Last Admin: 09/19/22 04:47 Dose: 20 mg Documented By: MIGUEL Ondansetron HCl (Ondansetron Hcl 4 Mg/2 Ml Vial) 4 mg IVPUSH Q8H PRN PRN Reason: Nausea and Vomiting Ondansetron HCl (Ondansetron Hcl 4 Mg/2 Ml Vial) 4 mg IVPUSH ONCE PRN PRN Reason: Nausea and Vomiting Pharmacy Consult (Consult Rx Vancomycin Dosing) 1 each MISCELLANE DAILY PRN PRN Reason: Consult order Sertraline HCl (Sertraline Hcl 50 Mg Tablet) 50 mg PO DAILY [facility] Last Admin: 09/19/22 09:10 Dose: 50 mg Documented By: HEDY Sodium Bicarbonate (Sodium Bicarbonate 650 Mg Tablet) 1,300 mg PO BID [facility] Last Admin: 09/19/22 09:09 Dose: 1,300 mg Documented By: HEDY Trazodone HCl (Trazodone Hcl 50 Mg Tablet) 50 mg PO BEDTIME [facility] Last Admin: 09/18/22 21:22 Dose: 50 mg Documented By: MIGUEL Labs CBC & Chem 7: 09/19/22 05:27 09/19/22 05:27 Labs: Laboratory Results - last 24 hr 09/17/22 09/18/22 09/18/22 18:30 11:13 15:32 MCV MCH MCHC RDW Plt Count MPV Absolute Nucleated RBC Nucleated RBC % (auto) Anion Gap Estim Creat Clear Calc Estimated GFR POC Glucose 209 H 217 H Random Glucose Calcium Stl C. cayetanensis PCR Not Detected Stool Rotavirus A PCR Not Detected Stl Adenov F 40/41 PCR Not Detected Stool Astrovirus (PCR) Not Detected Stool Campylobacter PCR Not Detected Stool Cryptosporidium PCR Not Detected Stl Sh Tox Pr E STEC PCR Not Detected Stool E coli O157 PCR Not applicable Stl Enterotoxigenic E PCR Not Detected Stool EPEC (PCR) Not Detected Stool EAEC (PCR) Not Detected Stl E. histolytica PCR Not Detected Stool Giardia Lamblia PCR Not Detected Stl P. shigelloides PCR Not Detected Stool Salmonella PCR Not Detected Stool Sapovirus (PCR) Not Detected Stl Shigella/EIEC PCR Not Detected St Y.enterocolitica PCR Not Detected Stool Vibrio (PCR) Not Detected Stl Vibrio cholerae PCR Not Detected Stl Norovirus GI/GII PCR Not Detected Random Vancomycin Blood Type Antibody Screen 09/18/22 09/18/22 09/19/22 17:02 19:05 05:27 MCV 82.3 MCH 26.2 L MCHC 31.8 RDW 14.1 Plt Count 196 MPV 10.2 Absolute Nucleated RBC 0.000 Nucleated RBC % (auto) 0.0 Anion Gap Estim Creat Clear Calc Estimated GFR POC Glucose 186 H Random Glucose Calcium Stl C. cayetanensis PCR Stool Rotavirus A PCR Stl Adenov F 40/41 PCR Stool Astrovirus (PCR) Stool Campylobacter PCR Stool Cryptosporidium PCR Stl Sh Tox Pr E STEC PCR Stool E coli O157 PCR Stl Enterotoxigenic E PCR Stool EPEC (PCR) Stool EAEC (PCR) Stl E. histolytica PCR Stool Giardia Lamblia PCR Stl P. shigelloides PCR Stool Salmonella PCR Stool Sapovirus (PCR) Stl Shigella/EIEC PCR St Y.enterocolitica PCR Stool Vibrio (PCR) Stl Vibrio cholerae PCR Stl Norovirus GI/GII PCR Random Vancomycin 16.8 Blood Type Antibody Screen 09/19/22 09/19/22 09/19/22 05:27 07:29 08:07 MCV MCH MCHC RDW Plt Count MPV Absolute Nucleated RBC Nucleated RBC % (auto) Anion Gap 18 Estim Creat Clear Calc 12.9 Estimated GFR 12 POC Glucose 124 H Random Glucose 117 H Calcium 8.1 L Stl C. cayetanensis PCR Stool Rotavirus A PCR Stl Adenov F 40/41 PCR Stool Astrovirus (PCR) Stool Campylobacter PCR Stool Cryptosporidium PCR Stl Sh Tox Pr E STEC PCR Stool E coli O157 PCR Stl Enterotoxigenic E PCR Stool EPEC (PCR) Stool EAEC (PCR) Stl E. histolytica PCR Stool Giardia Lamblia PCR Stl P. shigelloides PCR Stool Salmonella PCR Stool Sapovirus (PCR) Stl Shigella/EIEC PCR St Y.enterocolitica PCR Stool Vibrio (PCR) Stl Vibrio cholerae PCR Stl Norovirus GI/GII PCR Random Vancomycin Blood Type B Positive Antibody Screen NEGATIVE Assessment and Plan (1) Non-ST elevated myocardial infarction: Status: Acute (2) CKD (chronic kidney disease) stage 5, GFR less than 15 ml/min: Status: Acute (3) Cellulitis of hand, left: Status: Acute Plan 67-year-old female with past medical history as mentioned above presents to the hospital with infected left finger #? cellulitis of left index finger? with possible? necrotic tissue -? arterial duplex negative,ESR 121 and CRP:6. vanco trough :16.8(yesterday) -? will treat with IV antibiotics-on vanco/zosyn,? blood? cultures neg@48hrs -? general surgery -possible needfinger amputation . #? NSTEMI -? elevated troponin -? no EKG changes suggestive of? ACS -? given the significant elevation troponin, patient started on heparin drip in the ED -? echocardiogram CKD, elevated troponin, anemic, has NSTEMI in the setting of finger cellulitis:? Cardiology recommended-She is a poor candidate for invasive management.? At this time, completed 48 hours IV heparin, aspirin, high-dose statins.? Also on beta-blockers. #? normocytic anemia received 2 prbc :7.7/24.2 -? unclear etiology -? was evaluated in the past for the same, at that time patient underwent EGD which showed? dysphagia, rows of gastritis, and duodenitis, -? guaiac negative for any blood anemia workup-iron,iron sats,tibc low, ferritin normal-possible aocd +iron def, tranfused 2 prbc since admission. ?switch to po ppi sinceoff heprin drip,added iron #? hypertension -? stable -? continue home antihypertensives #? diabetes -? low-dose sliding scale as -? diabetic diet ckd stage 5 /anemia moniter h/h anemia workup nephro eval diarrhae: c diff ,stool wbc neg Diarrhea possibly related to laxative, magnesium and Kayexalate use:? Will hold these medications, added Imodium. ?DVT prophylaxis:? Heparin GGT inpatient need:?given patient's need for IV antibiotics for cellulitis -need possible finger amputation . Time Spent With Patient Time: Total time managing care of this patient today ____ minutes. Quality Stroke Does the patient have a stroke diagnosis?: No VTE Prior VTE?: No VTE Risk Level:: Medical - moderate - high VTE Device Contraindication: Treatment Not Indicated VTE Drug Contraindication: N/A - Med Ordered
[2022-09-19 12:17] LABS: Glucose, Whole Blood 94 mg/dL (60-115)
--- NOTE | 2022-09-19 15:07 | MHC.CM.PN ---
pt to have an amputation of several fingers not rwady for dc dc plan is for str when medically stable
[2022-09-19 15:29] LABS: Kappa Light Chain, Free Serum 92.6 mg/L (3.3-19.4); Kappa/Lambda Lt Ch Free Ratio 1.46 (0.26-1.65); Lambda Light Chain, Free Serum 63.5 mg/L (5.7-26.3)
[2022-09-19 15:34] LABS: Glucose, Whole Blood 197 mg/dL (60-115)
--- NOTE | 2022-09-19 16:02 | P.PNNP_ITS ---
Subjective Subjective Date of Service: 09/19/22 Interval history: nstemi,cellulitis Physical Exam Vital Signs: Vital Signs: Last Vital Signs Temp 98.0 F 09/19/22 15:20 Pulse 65 09/19/22 15:20 Resp 18 09/19/22 15:20 BP 146/64 H 09/19/22 15:20 Pulse Ox 98 09/19/22 15:20 O2 Del Method 09/19/22 15:20 O2 Flow Rate 2 09/19/22 07:23 Oxygen Flow Rate 2 09/14/22 17:05 BMI result Body Mass Index 37.3 Const: Other: patient is alert and oriented to self and place and answers questions appropriately General: cooperative, healthy appearing, comfortable, no acute distress, ill appearing and tired appearing Nutritional Appearance: well nourished Orientation/consciousness: oriented to person, oriented to place and patient oriented x3 Limitations: No language barrier HEENT: Other: Unremarkable Head: Yes normal to inspection, Yes normocephalic and Yes atraumatic Eyes: General: appearance normal, both eyes and all related structures EOM: EOMs intact bilaterally Neck: Neck: Yes normal visual inspection Chest: Chest palpation & inspection: normal inspection of the chest Resp: Other: Clear and equal bilaterally without wheezes rales or rhonchi but it is diminished throughout Effort & Inspection: normal respiratory effort, able to speak in complete sentences, no audible wheezes, no cough and no respiratory distress Auscultation: clear to auscultation bilaterally Cardio: Other: Regular rate and rhythm without murmurs rubs or gallops Palpation: normal PMI Rate: regular rate Rhythm: regular rhythm Heart sounds: S1 normal heart sound present, S2 normal heart sound present, no gallops, no murmurs and no rubs Peripheral pulses: Peripheral pulses 2+ throughout GI: Other: Abdomen is soft nontender nondistended Inspection: Yes normal to inspection Palpation (GI): Soft to palpation Auscultation: normal bowel sounds Back/Spine/Pelvis: Other: unremarkable Skin: Other: Warm, dry, no rashes General skin exam: no rashes or lesions noted and turgor normal Lesions: no lesions Rashes: no rashes Neuro: Other: Nonfocal neuro exam General: oriented to person, oriented to place and patient oriented x3 Extrem: Other: Left index finger continued swelling, and erythema from about the mid aspect of the proximal and an open wound at the tip of the finger phalanx distally with necrotic tissue present. Exposed bone protruding through the tip of the digit, and this appears to be a chronic situation. The finger is held in a flexed position at the PIP joint. General: Yes no pedal edema Psych: Mental Status: mental status grossly normal Affect: normal affect Attitude: cooperative Objective Data Labs CBC & Chem 7: 09/19/22 05:27 09/19/22 05:27 Labs: Laboratory Results - last 24 hr 09/16/22 09/18/22 09/18/22 06:14 17:02 19:05 WBC RBC Hgb Hct MCV MCH MCHC RDW Plt Count MPV Absolute Nucleated RBC Nucleated RBC % (auto) Sodium Potassium Chloride Carbon Dioxide Anion Gap BUN Creatinine Estim Creat Clear Calc Estimated GFR POC Glucose 186 H Random Glucose Calcium Random Vancomycin 16.8 Free [place] LC, Quant 92.6 H Free Lambda LC, Quant 63.5 H Free [place]/Lambda Ratio 1.46 Blood Type Antibody Screen 09/19/22 09/19/22 09/19/22 05:27 05:27 07:29 WBC 10.8 RBC 2.94 L Hgb 7.7 L Hct 24.2 L MCV 82.3 MCH 26.2 L MCHC 31.8 RDW 14.1 Plt Count 196 MPV 10.2 Absolute Nucleated RBC 0.000 Nucleated RBC % (auto) 0.0 Sodium 142 Potassium 3.9 Chloride 105 Carbon Dioxide 23 Anion Gap 18 BUN 50 H Creatinine 3.68 H Estim Creat Clear Calc 12.9 Estimated GFR 12 POC Glucose 124 H Random Glucose 117 H Calcium 8.1 L Random Vancomycin Free [place] LC, Quant Free Lambda LC, Quant Free [place]/Lambda Ratio Blood Type Antibody Screen 09/19/22 09/19/22 09/19/22 08:07 12:07 15:22 WBC RBC Hgb Hct MCV MCH MCHC RDW Plt Count MPV Absolute Nucleated RBC Nucleated RBC % (auto) Sodium Potassium Chloride Carbon Dioxide Anion Gap BUN Creatinine Estim Creat Clear Calc Estimated GFR POC Glucose 94 197 H Random Glucose Calcium Random Vancomycin Free [place] LC, Quant Free Lambda LC, Quant Free [place]/Lambda Ratio Blood Type B Positive Antibody Screen NEGATIVE Microbiology Microbiology Results: Microbiology 09/19/22 Unknown Finger Left Index Gram Stain - Final 09/14/22 17:47 Blood - Venous Blood Culture - Preliminary No growth after 48 hours. 09/14/22 17:37 Blood - Venous Blood Culture - Preliminary No growth after 48 hours. Procedures Date of Service Date of Service: 09/19/22 Assessment & Plan Assessment and plan (1) Non-ST elevated myocardial infarction: Status: Acute (2) CKD (chronic kidney disease) stage 5, GFR less than 15 ml/min: Status: Acute (3) Cellulitis of hand, left: Status: Acute Plan 67-year-old female with past medical history as mentioned above presents to the hospital with infected left finger #? hypertension -? stable -? continue home antihypertensives #? diabetes -? low-dose sliding scale as -? diabetic diet ckd stage 5 /anemia moniter h/h anemia iron deficency will give IV iron . Time Spent With Patient Time: Total time managing care of this patient today ____ minutes. Progress Note: Quality Stroke Does the patient have a stroke diagnosis?: No
[2022-09-19] MEDS: Insulin Lispro 100 UNIT/ML 3 ML VIAL SUBCUT ×2 (16:57→21:04)
[2022-09-19] MEDS: Iron Sucrose Complex 200 MG in 0.9 % Sodium Chloride 100 ML 440 MG IV (18:39)
[2022-09-19 19:16] LABS: Glucose, Whole Blood 296 mg/dL (60-115)
[2022-09-19] MEDS: Atorvastatin Calcium 80 MG TABLET PO (21:01)
[2022-09-19] MEDS: Aspirin Enteric Coated 81 MG TABLET.DR PO (21:01)
[2022-09-19] MEDS: Loperamide HCl 2 MG CAPSULE PO (21:03)
[2022-09-19] MEDS: traZODone HCL 50 MG TABLET PO (21:03)
[2022-09-19 23:28] LABS: Calcium (PTHI) 7.9 mg/dL (8.6-10.4); PTHI 191 pg/mL (16-77)
[2022-09-20] VITALS (8 sets, daily range): BP systolic 136–160; BP diastolic 59–91; PULSE 64–86; RESP 16–20; TEMP 36.2–36.8; O2SAT 93–98
[2022-09-20] MEDS: Piperacillin Sodium/Tazobactam 2.25 GM in 0.9 % Sodium Chloride 50 ML IV ×2 (04:08→11:07)
[2022-09-20 06:21] LABS: Creatinine Clr Calc Pharmacy 12.3; Estimated Glomerular Filt Rate 12
[2022-09-20 07:24] LABS: Glucose, Whole Blood 131 mg/dL (60-115)
--- NOTE | 2022-09-20 07:29 | PM.PNORT ---
Subjective Subjective Date of Service: 09/20/22 Interval history: POD1 s/p left index finger amputation at the middle phalanx level. Patient is resting in bed comfortably. No overnight events. Pain is managed. No additional complaints. Physical Exam Vital Signs: Vital Signs: Last Vital Signs Temp 97.8 F 09/20/22 04:00 Pulse 64 09/20/22 04:00 Resp 16 09/20/22 04:00 BP 143/62 H 09/20/22 04:00 Pulse Ox 95 09/20/22 04:00 O2 Del Method 09/20/22 04:00 O2 Flow Rate 2 09/19/22 07:23 Oxygen Flow Rate 2 09/14/22 17:05 BMI result Body Mass Index 37.3 Const: General: cooperative, healthy appearing and no acute distress Resp: Effort & Inspection: normal respiratory effort and able to speak in complete sentences Cardio: Rate: regular rate Peripheral pulses: Peripheral pulses 2+ throughout GI: Palpation (GI): Soft to palpation Skin: Lesions: no lesions Rashes: no rashes Extrem: Other: Left hand bandages are c/d/i. NVI. Procedures Date of Service Date of Service: 09/20/22 Progress Note: A&P Assessment and plan (1) Status post amputation of finger: Status: Acute Plan Continue pain mgmnt Keep bandages c/d/i. Elevate throughout the day Continue IV abx Dispo planning-Pain mgmnt, IV abx Time Spent With Patient Time: Total time managing care of this patient today ____ minutes. Quality Stroke Does the patient have a stroke diagnosis?: No VTE Prior VTE?: No VTE Risk Level:: Medical - moderate - high VTE Device Contraindication: Treatment Not Indicated VTE Drug Contraindication: N/A - Med Ordered
[2022-09-20] MEDS: Clopidogrel Bisulfate 75 MG TABLET PO (08:20)
[2022-09-20] MEDS: Sodium Bicarbonate 650 MG TABLET 1300 MG PO ×2 (08:20→20:40)
[2022-09-20] MEDS: carvediloL 6.25 MG TABLET PO ×2 (08:21→20:40)
[2022-09-20] MEDS: Sertraline HCL 50 MG TABLET PO (08:21)
[2022-09-20] MEDS: Furosemide 40 MG TABLET PO ×2 (08:21→16:19)
[2022-09-20] MEDS: amLODIPine Besylate 10 MG TABLET PO (08:21)
[2022-09-20] MEDS: Calcium + Vitamin D 250 MG TABLET PO ×2 (08:21→20:41)
[2022-09-20] MEDS: Insulin Glargine,Hum.rec.anlog 100 UNIT/ML 10 ML VIAL 18 UNIT SUBCUT (08:21)
[2022-09-20] MEDS: Isosorbide Mononitrate 60 MG TAB.ER.24H PO (08:21)
[2022-09-20] MEDS: Iron Sucrose Complex 200 MG in 0.9 % Sodium Chloride 100 ML 440 MG IV (10:38)
[2022-09-20] MEDS: Heparin Sodium,Porcine 5,000 UNIT/ML VIAL 5000 UNIT SUBCUT ×2 (10:38→20:40)
[2022-09-20] MEDS: Insulin Lispro 100 UNIT/ML 3 ML VIAL SUBCUT ×3 (11:11→20:40)
[2022-09-20 11:14] LABS: Glucose, Whole Blood 222 mg/dL (60-115)
--- NOTE | 2022-09-20 15:06 | HO.PM.IMPN ---
Subjective Subjective Date of Service: 09/20/22 Interval History: in good spirits, feeling better, offers no acute complaints complaining of mild pain at site of amputation, no acute events overnight, denies fever, no chills, no headache, no dizziness, tolerating diet with no nausea no vomiting no abdominal pain. Physical Exam Vital Signs: Vital Signs: Last Vital Signs Temp 97.1 F 09/20/22 11:22 Pulse 65 09/20/22 11:22 Resp 20 09/20/22 11:22 BP 159/68 H 09/20/22 11:22 Pulse Ox 95 09/20/22 11:22 O2 Del Method 09/20/22 11:22 O2 Flow Rate 2 09/19/22 07:23 Oxygen Flow Rate 2 09/14/22 17:05 BMI result Body Mass Index 37.3 Const: Other: General Awake alert, resting comfortably in no acute distress. Neck supple no JVD. CVS regular rate rhythm, Respiratory lungs clear to auscultation, no respiratory distress, no wheeze, no rhonchi. Gastrointestinal abdomen soft, nontender, bowel sounds audible, no guarding , no rigidity. Extremities left BKA, right with no edema, left index finger dressing intact no drainage Neuro nonfocal ,speech clear. Skin no rash psych appropriate affect Objective Data Active Medications Acetaminophen (Acetaminophen 325 Mg Tablet) 650 mg PO Q6H PRN PRN Reason: Pain, Mild (Pain Scale 1-3) Last Admin: 09/15/22 15:30 Dose: 650 mg Documented By: LISA Acetaminophen (Acetaminophen 325 Mg Tablet) 650 mg PO ONCE PRN PRN Reason: Pain, Mild (Pain Scale 1-3) Albuterol/Ipratropium (Albuterol/Iprat 2.5/0.5mg 3 Ml Ampul.Neb) 3 ml INHALE RQ4H PRN PRN Reason: Wheezing Amlodipine Besylate (Amlodipine Besylate 10 Mg Tablet) 10 mg PO DAILY [facility]; Protocol Last Admin: 09/20/22 08:21 Dose: 10 mg Documented By: JULITA Aspirin (Aspirin Enteric Coated 81 Mg Tablet.) 81 mg PO BEDTIME [facility] Last Admin: 09/19/22 21:01 Dose: 81 mg Documented By: MIGUEL Atorvastatin Calcium (Atorvastatin Calcium 80 Mg Tablet) 80 mg PO BEDTIME [facility] Last Admin: 09/19/22 21:01 Dose: 80 mg Documented By: MIGUEL Calcium Carbonate/Cholecalciferol (Calcium + Vitamin D 250 Mg Tablet) 250 mg PO BID [facility] Last Admin: 09/20/22 08:21 Dose: 250 mg Documented By: JULITA Carvedilol (Carvedilol 6.25 Mg Tablet) 6.25 mg PO BID [facility]; Protocol Last Admin: 09/20/22 08:21 Dose: 6.25 mg Documented By: JULITA Clopidogrel Bisulfate (Clopidogrel Bisulfate 75 Mg Tablet) 75 mg PO DAILY [facility] Last Admin: 09/20/22 08:20 Dose: 75 mg Documented By: JULITA Dextrose (Dextrose 50 % 25 Gm/50 Ml Syringe) 25 gm IVPUSH Q15M PRN; Protocol PRN Reason: per Hypoglycemia Standing Ord. Famotidine (Famotidine 20 Mg Tablet) 20 mg PO Q2D@0900 [facility] Last Admin: 09/19/22 09:10 Dose: 20 mg Documented By: HEDY Fentanyl (Fentanyl Citrate/Pf 100 Mcg/2 Ml Vial) 25 mcg IVPUSH Q5M PRN; Protocol PRN Reason: Pain, Moderate (Pain Scale 4-6 Furosemide (Furosemide 40 Mg Tablet) 40 mg PO BIDWM [facility]; Protocol Last Admin: 09/20/22 08:21 Dose: 40 mg Documented By: JULITA Glucose (Glucose Gel 15 Gm Gel..Gram.) 15 gm PO Q15M PRN; Protocol PRN Reason: per Hypoglycemia Standing Ord. Heparin Sodium (Porcine) (Heparin Sodium,Porcine 5,000 Unit/Ml Vial) 5,000 unit SUBCUT Q12H [facility] Last Admin: 09/20/22 10:38 Dose: 5,000 unit Documented By: JULITA Hydromorphone HCl (Hydromorphone Hcl 0.5 Mg/0.5 Ml Syringe) 0.25 mg IVPUSH Q5M PRN; Protocol PRN Reason: Pain, Severe (Pain Scale 7-10) Vancomycin HCl 750 mg/ Sodium (Chloride) 265 mls @ 265 mls/hr IV Q48H [facility] Last Infusion: 09/18/22 18:57 Dose: 0 mls/hr Documented By: HEDY Piperacillin Sod/Tazobactam (Sod 2.25 gm/ Sodium Chloride) 50 mls @ 100 mls/hr IV Q6H [facility] Last Infusion: 09/20/22 11:40 Dose: 0 mls/hr Documented By: JULITA Iron Sucrose 200 mg/ Sodium (Chloride) 110 mls @ 440 mls/hr IV DAILY [facility] Stop: 09/22/22 09:14 Last Infusion: 09/20/22 11:23 Dose: 0 mls/hr Documented By: JULITA Insulin Glargine (Insulin Glargine,Hum.Rec.Anlog 100 Unit/Ml 10 Ml Vial) 18 unit SUBCUT DAILY [facility] Last Admin: 09/20/22 08:21 Dose: 18 unit Documented By: JULITA Comments: ripped barcode Insulin Human Lispro (Insulin Lispro 100 Unit/Ml 3 Ml Vial) 0 unit SUBCUT QIDACHS [facility]; Protocol Last Admin: 09/20/22 11:11 Dose: 4 unit Documented By: JULITA Isosorbide Mononitrate (Isosorbide Mononitrate 60 Mg Tab.Er.24h) 60 mg PO DAILY [facility]; Protocol Last Admin: 09/20/22 08:21 Dose: 60 mg Documented By: JULITA Loperamide HCl (Loperamide Hcl 2 Mg Capsule) 2 mg PO Q4H PRN PRN Reason: Diaper Rash Last Admin: 09/19/22 21:03 Dose: 2 mg Documented By: MIGUEL Omeprazole (Omeprazole 20 Mg Capsule.) 20 mg PO BID@0630,1630 [facility] Last Admin: 09/20/22 06:04 Dose: Not Given Documented By: MIGUEL Non-Admin Reason: Patient Asleep Ondansetron HCl (Ondansetron Hcl 4 Mg/2 Ml Vial) 4 mg IVPUSH Q8H PRN PRN Reason: Nausea and Vomiting Ondansetron HCl (Ondansetron Hcl 4 Mg/2 Ml Vial) 4 mg IVPUSH ONCE PRN PRN Reason: Nausea and Vomiting Pharmacy Consult (Consult Rx Vancomycin Dosing) 1 each MISCELLANE DAILY PRN PRN Reason: Consult order Sertraline HCl (Sertraline Hcl 50 Mg Tablet) 50 mg PO DAILY [facility] Last Admin: 09/20/22 08:21 Dose: 50 mg Documented By: JULITA Sodium Bicarbonate (Sodium Bicarbonate 650 Mg Tablet) 1,300 mg PO BID [facility] Last Admin: 09/20/22 08:20 Dose: 1,300 mg Documented By: JULITA Trazodone HCl (Trazodone Hcl 50 Mg Tablet) 50 mg PO BEDTIME [facility] Last Admin: 09/19/22 21:03 Dose: 50 mg Documented By: MIGUEL Labs CBC & Chem 7: 09/19/22 05:27 09/20/22 05:41 Labs: Laboratory Results - last 24 hr 09/16/22 09/16/22 09/19/22 06:14 06:14 15:22 Estim Creat Clear Calc Estimated GFR POC Glucose 197 H PTH Intact 191 H Calcium (PTH Intact) 7.9 L Free Seg[place] LC, Quant 92.6 H Free Lambda LC, Quant 63.5 H Free Seg[place]/Lambda Ratio 1.46 09/19/22 09/20/22 09/20/22 18:50 05:41 07:18 Estim Creat Clear Calc 12.3 Estimated GFR 12 POC Glucose 296 H 131 H PTH Intact Calcium (PTH Intact) Free Seguin LC, Quant Free Lambda LC, Quant Free Seguin/Lambda Ratio 09/20/22 11:06 Estim Creat Clear Calc Estimated GFR POC Glucose 222 H PTH Intact Calcium (PTH Intact) Free Seguin LC, Quant Free Lambda LC, Quant Free Seguin/Lambda Ratio Microbiology Microbiology Results: Microbiology 09/19/22 Unknown Gram Stain - Final Finger Left Index Routine Culture - Preliminary No growth to date. 09/14/22 17:47 Blood Culture - Final Blood - Venous No growth after 5 days. 09/14/22 17:37 Blood Culture - Final Blood - Venous No growth after 5 days. Assessment and Plan (1) Non-ST elevated myocardial infarction: Status: Acute (2) CKD (chronic kidney disease) stage 5, GFR less than 15 ml/min: Status: Acute (3) Cellulitis of hand, left: Status: Acute Plan 67-year-old female with past medical history as mentioned above presents to the hospital with infected left finger #? cellulitis of left index finger? with tip necrosis status post amputation left index finger middle phalanx level arterial duplex negative,ESR 121 and CRP:6. on iv vanco/zosyn,? blood? cultures neg x 48hrs, since infection site has been amputated will DC IV antibiotic #? NSTEMI -? elevated troponin, no EKG changes suggestive of? ACS -? given the significant elevation troponin, patient treated with IV heparin times 48 hours, seen by Cardiology patient is not a candidate for cardiac catheterization, continue aspirin statins and beta-blockers ? echocardiogram showed EF 32%, moderate to severe pulmonary hypertension, moderate global hypokinesis and grade 2 diastolic dysfunction #? normocytic anemia received 2 prbc :7.7/24.2, anemia of chronic kidney disease, EGD showed gastritis/ duodenitis, guaiac negative stools receiving IV iron as per Nephrology will need Procrit after iron supplement #? hypertension -? blood pressure on higher side continue Lasix, amlodipine 10 mg, Coreg 6.25 b.i.d. and isosorbide follow blood pressure closely #? diabetes is stable blood sugars continue insulin sliding scale, diabetic diet # ckd stage 5 being followed by Nephrology no further intervention # diarrhae: resolved, c diff ,stool wbc neg, Diarrhea possibly related to laxative, magnesium and Kayexalate use, although laxative discontinued ?DVT prophylaxis:? Heparin subcu inpatient need:? is status post a left index finger amputation and anemia follow CBC receiving IV iron Time Spent With Patient Time: Total time managing care of this patient today ____ minutes. Quality Stroke Does the patient have a stroke diagnosis?: No VTE Prior VTE?: No VTE Risk Level:: Medical - moderate - high VTE Device Contraindication: Treatment Not Indicated VTE Drug Contraindication: N/A - Med Ordered
--- NOTE | 2022-09-20 15:11 | HO.POSTANES ---
Post Anesthesia Evaluation Post Anesthesia Evaluation Vital Signs: Vital Signs Temp Pulse Resp BP Pulse Ox O2 Del Method 09/20/22 11:22 97.1 F 65 20 159/68 H 95 Room Air 09/20/22 09:50 98 Room Air 09/20/22 07:54 97.5 F 64 20 136/91 H 95 Room Air 09/20/22 04:00 97.8 F 64 16 143/62 H 95 Room Air Anesthesia: Monitored Mental Status: Awake Pain Control: Satisfactory Nausea/Vomiting: None Hydration: Adequate Anesthesia-Related Issues: No Anes. Related Issues
[2022-09-20 15:33] LABS: Glucose, Whole Blood 236 mg/dL (60-115)
[2022-09-20 15:58] LABS: IgA 222 mg/dL (70-320); IgG 1418 mg/dL (600-1540); IgM 151 mg/dL (50-300)
[2022-09-20] MEDS: Omeprazole 20 MG CAPSULE.DR PO (16:20)
[2022-09-20 18:01] LABS: Vancomycin Random 18.5 mcg/mL (15-20)
[2022-09-20 19:29] LABS: Glucose, Whole Blood 222 mg/dL (60-115)
[2022-09-20] MEDS: Atorvastatin Calcium 80 MG TABLET PO (20:40)
[2022-09-20] MEDS: traZODone HCL 50 MG TABLET PO (20:41)
[2022-09-20] MEDS: Aspirin Enteric Coated 81 MG TABLET.DR PO (20:41)
[2022-09-21] MEDS: Melatonin 3 MG TABLET 6 MG PO (02:57)
[2022-09-21 03:19] VITALS: BP 132/59; PULSE 68; RESP 17; TEMP 36.6; O2SAT 95
[2022-09-21 06:22] LABS: Hematocrit 22.7 % (37.0-47.0); Hemoglobin 7.3 g/dl (12.0-16.0); Mean Corpuscular HGB Conc 32.2 g/dl (31.0-35.0); Mean Corpuscular Hemoglobin 26.4 pg (27.0-33.0); Mean Corpuscular Volume 82.2 fL (80.0-98.0); Mean Platelet Volume 10.7 fL (9.4-12.3); Platelet Count 198 X10*3/uL (160-400); Red Blood Count 2.76 X10*6/uL (4.20-5.50); Red Cell Distribution Width 14.1 % (11.0-16.0)
[2022-09-21] MEDS: Omeprazole 20 MG CAPSULE.DR PO ×2 (06:39→17:40)
[2022-09-21 06:42] VITALS: BMI 35.9
[2022-09-21 07:11] LABS: Anion Gap 17 (12-20); Blood Urea Nitrogen 51 mg/dL (9-16); Calcium 7.9 mg/dL (8.4-10.2); Carbon Dioxide 23 mmol/L (22-29); Chloride 105 mmol/L (96-108); Creatinine Clr Calc Pharmacy 11.6; Estimated Glomerular Filt Rate 11; Glucose Random 133 mg/dL (60-115); Potassium 4.2 mmol/L (3.3-5.1); Sodium 141 mmol/L (135-145)
[2022-09-21 07:12] VITALS: BP 126/60; PULSE 65; RESP 17; TEMP 36.6; O2SAT 94
[2022-09-21 07:22] LABS: Glucose, Whole Blood 133 mg/dL (60-115)
[2022-09-21] MEDS: Sodium Bicarbonate 650 MG TABLET 1300 MG PO ×2 (08:48→21:04)
[2022-09-21] MEDS: Famotidine 20 MG TABLET PO (08:48)
[2022-09-21] MEDS: Isosorbide Mononitrate 60 MG TAB.ER.24H PO (08:48)
[2022-09-21] MEDS: carvediloL 6.25 MG TABLET PO ×2 (08:48→21:04)
[2022-09-21] MEDS: amLODIPine Besylate 10 MG TABLET PO (08:48)
[2022-09-21] MEDS: Heparin Sodium,Porcine 5,000 UNIT/ML VIAL 5000 UNIT SUBCUT ×2 (08:48→21:04)
[2022-09-21] MEDS: Calcium + Vitamin D 250 MG TABLET PO ×2 (08:48→21:04)
[2022-09-21] MEDS: Clopidogrel Bisulfate 75 MG TABLET PO (08:48)
[2022-09-21] MEDS: Furosemide 40 MG TABLET PO ×2 (08:48→17:40)
[2022-09-21] MEDS: Sertraline HCL 50 MG TABLET PO (08:48)
[2022-09-21] MEDS: Insulin Glargine,Hum.rec.anlog 100 UNIT/ML 10 ML VIAL 18 UNIT SUBCUT (08:49)
[2022-09-21] MEDS: Iron Sucrose Complex 200 MG in 0.9 % Sodium Chloride 100 ML 440 MG IV (08:52)
--- NOTE | 2022-09-21 09:03 | PM.PNNEP ---
Subjective Subjective Date of Service: 09/21/22 Interval history: in good spirits, feeling better, offers no acute complaints complaining of mild pain at site of amputation, no acute events overnight, denies fever, no chills, no headache, no dizziness, tolerating diet with no nausea no vomiting no abdominal pain. Physical Exam Vital Signs: Vital Signs: Last Vital Signs Temp 97.8 F 09/21/22 07:12 Pulse 65 09/21/22 07:12 Resp 17 09/21/22 07:12 BP 126/60 09/21/22 07:12 Pulse Ox 94 09/21/22 07:12 O2 Del Method 09/21/22 07:12 O2 Flow Rate 2 09/19/22 07:23 Oxygen Flow Rate 2 09/14/22 17:05 BMI result Body Mass Index 35.9 Const: Other: General Awake alert, resting comfortably in no acute distress. Neck supple no JVD. CVS regular rate rhythm, Respiratory lungs clear to auscultation, no respiratory distress, no wheeze, no rhonchi. Gastrointestinal abdomen soft, nontender, bowel sounds audible, no guarding , no rigidity. Extremities left BKA, right with no edema, left index finger dressing intact no drainage Neuro nonfocal ,speech clear. Skin no rash psych appropriate affect General: cooperative, healthy appearing, comfortable, no acute distress, ill appearing and tired appearing Nutritional Appearance: well nourished Orientation/consciousness: oriented to person, oriented to place and patient oriented x3 Limitations: No language barrier HEENT: Other: Unremarkable Head: Yes normal to inspection, Yes normocephalic and Yes atraumatic Eyes: General: appearance normal, both eyes and all related structures EOM: EOMs intact bilaterally Neck: Neck: Yes normal visual inspection Chest: Chest palpation & inspection: normal inspection of the chest Resp: Other: Clear and equal bilaterally without wheezes rales or rhonchi but it is diminished throughout Effort & Inspection: normal respiratory effort, able to speak in complete sentences, no audible wheezes, no cough and no respiratory distress Auscultation: clear to auscultation bilaterally Cardio: Other: Regular rate and rhythm without murmurs rubs or gallops Palpation: normal PMI Rate: regular rate Rhythm: regular rhythm Heart sounds: S1 normal heart sound present, S2 normal heart sound present, no gallops, no murmurs and no rubs Peripheral pulses: Peripheral pulses 2+ throughout GI: Other: Abdomen is soft nontender nondistended Inspection: Yes normal to inspection Palpation (GI): Soft to palpation Auscultation: normal bowel sounds Back/Spine/Pelvis: Other: unremarkable Skin: Other: Warm, dry, no rashes General skin exam: no rashes or lesions noted and turgor normal Lesions: no lesions Rashes: no rashes Neuro: Other: Nonfocal neuro exam General: oriented to person, oriented to place and patient oriented x3 Extrem: Other: Left hand bandages are c/d/i. NVI. General: Yes no pedal edema Psych: Mental Status: mental status grossly normal Affect: normal affect Attitude: cooperative Objective Data Labs CBC & Chem 7: 09/21/22 05:48 09/21/22 05:48 Labs: Laboratory Results - last 24 hr 09/16/22 09/20/22 09/20/22 06:14 11:06 15:23 WBC RBC Hgb Hct MCV MCH MCHC RDW Plt Count MPV Absolute Nucleated RBC Nucleated RBC % (auto) Sodium Potassium Chloride Carbon Dioxide Anion Gap BUN Creatinine Estim Creat Clear Calc Estimated GFR POC Glucose 222 H 236 H Random Glucose Calcium Random Vancomycin IgG Total 1418 IgA Total 222 IgM 151 RAMSES Interpretation 09/20/22 09/20/22 09/21/22 17:13 19:24 05:48 WBC 11.0 H RBC 2.76 L Hgb 7.3 L Hct 22.7 L MCV 82.2 MCH 26.4 L MCHC 32.2 RDW 14.1 Plt Count 198 MPV 10.7 Absolute Nucleated RBC 0.000 Nucleated RBC % (auto) 0.0 Sodium Potassium Chloride Carbon Dioxide Anion Gap BUN Creatinine Estim Creat Clear Calc Estimated GFR POC Glucose 222 H Random Glucose Calcium Random Vancomycin 18.5 IgG Total IgA Total IgM RAMSES Interpretation 09/21/22 09/21/22 05:48 07:14 WBC RBC Hgb Hct MCV MCH MCHC RDW Plt Count MPV Absolute Nucleated RBC Nucleated RBC % (auto) Sodium 141 Potassium 4.2 Chloride 105 Carbon Dioxide 23 Anion Gap 17 BUN 51 H Creatinine 4.01 H* Estim Creat Clear Calc 11.6 Estimated GFR 11 POC Glucose 133 H Random Glucose 133 H Calcium 7.9 L Random Vancomycin IgG Total IgA Total IgM RAMSES Interpretation Microbiology Microbiology Results: Microbiology 09/19/22 Unknown Finger Left Index Gram Stain - Final 09/19/22 Unknown Finger Left Index Routine Culture - Final No growth after 2 days 09/14/22 17:47 Blood - Venous Blood Culture - Final No growth after 5 days. 09/14/22 17:37 Blood - Venous Blood Culture - Final No growth after 5 days. Procedures Date of Service Date of Service: 09/21/22 Assessment & Plan Assessment and plan (1) Non-ST elevated myocardial infarction: Status: Acute (2) CKD (chronic kidney disease) stage 5, GFR less than 15 ml/min: Status: Acute Assessment and Plan: her creatinine does fluctuate but it overall is stable replacing her iron deficiency with IV iron I ordered Procrit today when she is discharged we will follow up within a week as an outpatient and continue Procrit (3) Cellulitis of hand, left: Status: Acute Plan 67-year-old female with past medical history as mentioned above presents to the hospital with infected left finger #? cellulitis of left index finger? with tip necrosis status post amputation left index finger middle phalanx level arterial duplex negative,ESR 121 and CRP:6. on iv vanco/zosyn,? blood? cultures neg x 48hrs, since infection site has been amputated will DC IV antibiotic #? NSTEMI -? elevated troponin, no EKG changes suggestive of? ACS -? given the significant elevation troponin, patient treated with IV heparin times 48 hours, seen by Cardiology patient is not a candidate for cardiac catheterization, continue aspirin statins and beta-blockers ? echocardiogram showed EF 32%, moderate to severe pulmonary hypertension, moderate global hypokinesis and grade 2 diastolic dysfunction #? normocytic anemia received 2 prbc :7.7/24.2, anemia of chronic kidney disease, EGD showed gastritis/ duodenitis, guaiac negative stools receiving IV iron as per Nephrology will need Procrit after iron supplement #? hypertension -? blood pressure on higher side continue Lasix, amlodipine 10 mg, Coreg 6.25 b.i.d. and isosorbide follow blood pressure closely #? diabetes is stable blood sugars continue insulin sliding scale, diabetic diet # ckd stage 5 being followed by Nephrology no further intervention # diarrhae: resolved, c diff ,stool wbc neg, Diarrhea possibly related to laxative, magnesium and Kayexalate use, although laxative discontinued ?DVT prophylaxis:? Heparin subcu inpatient need:? is status post a left index finger amputation and anemia follow CBC receiving IV iron Time Spent With Patient Time: Total time managing care of this patient today ____ minutes. Progress Note: Quality Stroke Does the patient have a stroke diagnosis?: No
[2022-09-21 11:03] VITALS: BP 124/81; PULSE 68; RESP 16; TEMP 36.7; O2SAT 96
--- NOTE | 2022-09-21 11:20 | P.DS_ITS ---
DS: Providers Provider Date of Service: 09/21/22 Date of admission: 09/15/22 00:27 Primary care physician: Alexys Avila MD Consults: 09/14/22 22:13 Consult to Cardiology Stat Consulting Provider: Andrea Vides Reason for consultation: troponins trending upwards Has provider been notified: Yes 09/15/22 05:47 Consult to General Surgery Routine Consulting Provider: Fred Wisdom Reason for consultation: infected finger Has provider been notified: No 09/15/22 08:21 Consult to Orthopedics Routine Consulting Provider: Toya Panchal Reason for consultation: Left hand finger necrosis 09/15/22 11:44 Consult to Nephrology Routine Consulting Provider: Jian Chao Reason for consultation: ckd/anemia Has provider been notified: No DS: Diagnosis Discharge Diagnosis (1) Non-ST elevated myocardial infarction: Status: Acute (2) CKD (chronic kidney disease) stage 5, GFR less than 15 ml/min: Status: Acute (3) Cellulitis of hand, left: Status: Acute DS: Summary Hospital Course Hospital Course: history of presenting illness Date of Service: 09/15/22 Chief Complaint:? 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 with past medical history of diabetes, history of heart failure, CVA, chronic anemia, CKD, HLD, HTN among others, presents to the hospital? after her daughter called the ambulance because she noticed her finger? appeared infected and necrotic.? 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 Patient herself feels very sick, she reports the night before she felt ? out of it ,? and had vomiting. when I ask her about her fingers, patient denies any pain, reports that she noticed the necrotic tissue? 2 days ago,? She reports no arm pain,? denies any cough, no diarrhea or constipation, no urinary symptoms and no lower extremity edema.? Patient denies any chest pain, no palpitations.? On arrival to the ED patient hemodynamically stable, also had a fever of 100.4, respiratory rate of 22, heart rate of 102.? Labs are significant for? WBC count of? 15.7,? hemoglobin of 7.8, hematocrit of 2 any 4.1, normal MCV, creatinine of 3.87 which is around her baseline, troponin of 335, increased to 405, UA positive Arterial duplex negative of the upper extremities ?hand x-ray x-ray shows no radiographic evidence of osteomyelitis hospital course 67-year-old female with past medical history as mentioned above presents to the hospital with infected left finger #? cellulitis of left index finger? with tip necrosis, ? status post amputation? left index finger middle phalanx level,? arterial duplex negative,ESR 121 and CRP:6, initially treated with IV vanco and Zosyn antibiotic discontinued post surgery. blood? cultures neg x 48hrs, recommend outpatient follow-up with orthopedic surgeon Dr. Panchal for dressing change call for an appointment take Tylenol and oxycodone for pain control #? NSTEMI-? elevated troponin, no EKG changes suggestive of? ACS, given the significant elevation troponin, patient treated with IV heparin times 48 hours, seen by Cardiology patient is not a candidate for cardiac catheterization due to multiple comorbidities, continue aspirin statins and beta-blockers,? echocardiogram showed EF 32%, moderate to severe pulmonary hypertension, moderate global hypokinesis and grade 2 diastolic dysfunction #? normocytic anemia?? received 2 prbc :7.7/24.2, anemia of chronic kidney disease, EGD showed gastritis/ duodenitis, guaiac negative stools ? ? received IV iron as per Nephrology and given Procrit?, recommend outpatient follow-up with Nephrology for continued Procrit #? hypertension-? stable? blood pressure , continue Lasix, amlodipine 10 mg, Coreg 6.25 b.i.d. and isosorbide follow blood pressure closely #? diabetes is stable blood sugars continue insulin sliding scale, diabetic diet #? ckd stage 5? being followed by Nephrology no further intervention, recommend outpatient follow-up with Nephrology in 1 week # diarrhae: resolved, c diff ,stool wbc neg, Diarrhea possibly related to kayexalate use, therefore discontinued Time Spent with Patient Time attestation: Total time managing care of this patient today ____ minutes. Discharge coordination time: Greater than 30 minutes Quality: Safe Use of Opioids Does Pt have an Active Cancer Diagnosis on the Problem List?: No Quality: Stroke Does the patient have a stroke diagnosis?: No Physical Exam Vital Signs: Vital Signs: Last Vital Signs Temp 98.0 F 09/21/22 11:03 Pulse 68 09/21/22 11:03 Resp 16 09/21/22 11:03 BP 124/81 09/21/22 11:03 Pulse Ox 96 09/21/22 11:03 O2 Del Method 09/21/22 11:03 O2 Flow Rate 2 09/19/22 07:23 Oxygen Flow Rate 2 09/14/22 17:05 BMI result Body Mass Index 35.9 Const: Other: General ? Awake alert, resting comfortably in no acute distress.? Neck? supple no JVD. CVS? regular rate rhythm, Respiratory lungs clear to auscultation, no respiratory distress, no wheeze, no rhonchi. Gastrointestinal abdomen soft, nontender, bowel sounds audible, no guarding , no rigidity. Extremities? left BKA, right with no edema, left index finger dressing intact no drainage Neuro nonfocal ,speech clear. Skin no rash psych appropriate affect DS: Data Data Completed and Pending Completed studies during hospitalization [Text1]: Procedures Dilation of Esophagus, Via Natural or Artificial Opening Endoscopic (01/31/22) Dilation of Upper Esophagus, Via Natural or Artificial Opening Endoscopic (08/16/21) Introduction of Other Thrombolytic into Peripheral Vein, Percutaneous Approach (06/05/21) Transfusion of Nonautologous Red Blood Cells into Peripheral Vein, Percutaneous Approach (12/24/20) Pending studies at discharge: Pending at discharge 09/19/22 10:45 Surgical [PTH] Routine Labs on day of discharge: Laboratory Results - last 24 hr 09/16/22 09/20/22 09/20/22 06:14 15:23 17:13 WBC RBC Hgb Hct MCV MCH MCHC RDW Plt Count MPV Absolute Nucleated RBC Nucleated RBC % (auto) Sodium Potassium Chloride Carbon Dioxide Anion Gap BUN Creatinine Estim Creat Clear Calc Estimated GFR POC Glucose 236 H Random Glucose Calcium Random Vancomycin 18.5 IgG Total 1418 IgA Total 222 IgM 151 RAMSES Interpretation 09/20/22 09/21/22 09/21/22 19:24 05:48 05:48 WBC 11.0 H RBC 2.76 L Hgb 7.3 L Hct 22.7 L MCV 82.2 MCH 26.4 L MCHC 32.2 RDW 14.1 Plt Count 198 MPV 10.7 Absolute Nucleated RBC 0.000 Nucleated RBC % (auto) 0.0 Sodium 141 Potassium 4.2 Chloride 105 Carbon Dioxide 23 Anion Gap 17 BUN 51 H Creatinine 4.01 H* Estim Creat Clear Calc 11.6 Estimated GFR 11 POC Glucose 222 H Random Glucose 133 H Calcium 7.9 L Random Vancomycin IgG Total IgA Total IgM RAMSES Interpretation 09/21/22 07:14 WBC RBC Hgb Hct MCV MCH MCHC RDW Plt Count MPV Absolute Nucleated RBC Nucleated RBC % (auto) Sodium Potassium Chloride Carbon Dioxide Anion Gap BUN Creatinine Estim Creat Clear Calc Estimated GFR POC Glucose 133 H Random Glucose Calcium Random Vancomycin IgG Total IgA Total IgM RAMSES Interpretation Discharge Plan Discharge Anticipated Discharge Date/Time: 09/21/22 11:12 Patient Disposition: Xfer SNF Discharge Diagnosis: left index finger tip necrosis status post amputation non ST-elevation MO acute on chronic normocytic anemia chronic kidney disease stage 5 diarrhea Referrals: Physician,Unknown J [Physician] - 1 Week Discharge Medications: New oxycodone 5 mg tablet 5 mg PO Q6H PRN (Reason: pain) Qty: 20 0RF Rx Instructions: Partial Fill upon patient request. Continued furosemide [Lasix] 40 mg tablet 40 mg PO BID 90 Days Qty: 180 0RF Rx Instructions: Please call and schedule cardiology appt. carvedilol 6.25 mg tablet 6.25 mg PO BID Qty: 60 5RF Rx Instructions: must administer with a meal/food - Take one tablet twice daily atorvastatin 80 mg tablet 80 mg PO BEDTIME trazodone 50 mg tablet 50 mg PO BEDTIME clopidogrel 75 mg tablet 75 mg PO DAILY aspirin 81 mg tablet,delayed release (DR/EC) 81 mg PO BEDTIME magnesium oxide 400 mg (241.3 mg magnesium) tablet 400 mg PO BID sertraline 50 mg tablet 50 mg PO DAILY calcium carbonate-vitamin D3 600 mg(1,500mg) -400 unit tablet 1 tab PO BID insulin glargine [Lantus Solostar U-100 Insulin] 100 unit/mL (3 mL) insulin pen 18 unit subcut DAILY amlodipine 10 mg Tablet 10 mg PO DAILY 30 Days Qty: 30 0RF Protocol: Hold for SBP< HOLD for SBP < : 90 famotidine 40 mg tablet 40 mg PO BID 30 Days Qty: 60 0RF sodium bicarbonate 650 mg Tablet 650 mg PO BID 30 Days Qty: 60 0RF ipratropium-albuterol 0.5 mg-3 mg(2.5 mg base)/3 mL Solution For Nebulization 3 ml INHALATION Q4H PRN (Reason: Wheezing) acetaminophen 500 mg tablet 2 tab PO QID PRN (Reason: fever) insulin lispro [Humalog U-100 Insulin] 100 unit/mL Solution 1 sliding scale dose SUBCUT USEASDIRECTD Rx Instructions: 61-200: 0 UNITS 201- 250: 4U 251-300: 6U 301-350: 8U 351-400:10U 401+: 12U Discontinued sodium polystyrene sulfonate Powder 15 g PO DAILY 30 Days Qty: 454 0RF Discharge Orders: Discharge Order (Routine); Ordered 09/21/22 Ordered By: Gustavo Treviño Diet: Diabetic diet Activity on Discharge: As tolerated Stand Alone Forms: Patient Portal Discharge page Care Plan Goals: status post amputation of left index finger up to level of middle phalanx, dressing change by orthopedic surgery had postop appointment take Tylenol and oxycodone for pain control continue all home medications as before Health Concerns: as above Plan of Treatment: outpatient follow-up with Nephrology in [address] Pang, outpatient follow-up with primary care physician outpatient follow-up with Dr. Panchal for dressing change at postop appointment call for an appointment Assessment: as above
[2022-09-21 11:29] LABS: Glucose, Whole Blood 277 mg/dL (60-115)
[2022-09-21] MEDS: Insulin Lispro 100 UNIT/ML 3 ML VIAL SUBCUT ×2 (11:41→21:10)
--- NOTE | 2022-09-21 13:21 | P.PNIM_ITS ---
Subjective Subjective Date of Service: 09/21/22 Interval History: awake alert history obtained via deliverer outside offers no acute complaints Review of Systems General no headache no dizziness no fever chills. CVS no chest pain, no palpitation. Respiratory no cough no sputum production no respiratory distress. Gastrointestinal no nausea no vomiting, no abdominal pain Review of Systems: Yes all other systems are reviewed and are negative Physical Exam Vital Signs: Vital Signs: Last Vital Signs Temp 98.0 F 09/21/22 11:03 Pulse 68 09/21/22 11:03 Resp 16 09/21/22 11:03 BP 124/81 09/21/22 11:03 Pulse Ox 96 09/21/22 11:03 O2 Del Method 09/21/22 11:03 O2 Flow Rate 2 09/19/22 07:23 Oxygen Flow Rate 2 09/14/22 17:05 BMI result Body Mass Index 35.9 Const: Other: General ? Awake alert, resting comfortably in no acute distress.? Neck? supple no JVD. CVS? regular rate rhythm, Respiratory lungs clear to auscultation, no respiratory distress, no wheeze, no rhonchi. Gastrointestinal abdomen soft, nontender, bowel sounds audible, no guarding , no rigidity. Extremities? left BKA, right with no edema, left index finger dressing intact no drainage Neuro nonfocal ,speech clear. Skin no rash psych appropriate affect Objective Data Active Medications Acetaminophen (Acetaminophen 325 Mg Tablet) 650 mg PO Q6H PRN PRN Reason: Pain, Mild (Pain Scale 1-3) Last Admin: 09/15/22 15:30 Dose: 650 mg Documented By: LISA Acetaminophen (Acetaminophen 325 Mg Tablet) 650 mg PO ONCE PRN PRN Reason: Pain, Mild (Pain Scale 1-3) Albuterol/Ipratropium (Albuterol/Iprat 2.5/0.5mg 3 Ml Ampul.Neb) 3 ml INHALE RQ4H PRN PRN Reason: Wheezing Amlodipine Besylate (Amlodipine Besylate 10 Mg Tablet) 10 mg PO DAILY [facility]; Protocol Last Admin: 09/21/22 08:48 Dose: 10 mg Documented By: HEDY Aspirin (Aspirin Enteric Coated 81 Mg Tablet.) 81 mg PO BEDTIME [facility] Last Admin: 09/20/22 20:41 Dose: 81 mg Documented By: CAMPBELL Atorvastatin Calcium (Atorvastatin Calcium 80 Mg Tablet) 80 mg PO BEDTIME [facility] Last Admin: 09/20/22 20:40 Dose: 80 mg Documented By: CAMPBELL Calcium Carbonate/Cholecalciferol (Calcium + Vitamin D 250 Mg Tablet) 250 mg PO BID [facility] Last Admin: 09/21/22 08:48 Dose: 250 mg Documented By: HEDY Carvedilol (Carvedilol 6.25 Mg Tablet) 6.25 mg PO BID [facility]; Protocol Last Admin: 09/21/22 08:48 Dose: 6.25 mg Documented By: HEDY Clopidogrel Bisulfate (Clopidogrel Bisulfate 75 Mg Tablet) 75 mg PO DAILY [facility] Last Admin: 09/21/22 08:48 Dose: 75 mg Documented By: HEDY Dextrose (Dextrose 50 % 25 Gm/50 Ml Syringe) 25 gm IVPUSH Q15M PRN; Protocol PRN Reason: per Hypoglycemia Standing Ord. Famotidine (Famotidine 20 Mg Tablet) 20 mg PO Q2D@0900 [facility] Last Admin: 09/21/22 08:48 Dose: 20 mg Documented By: HEDY Fentanyl (Fentanyl Citrate/Pf 100 Mcg/2 Ml Vial) 25 mcg IVPUSH Q5M PRN; Protocol PRN Reason: Pain, Moderate (Pain Scale 4-6 Furosemide (Furosemide 40 Mg Tablet) 40 mg PO BIDWM [facility]; Protocol Last Admin: 09/21/22 08:48 Dose: 40 mg Documented By: HEDY Glucose (Glucose Gel 15 Gm Gel..Gram.) 15 gm PO Q15M PRN; Protocol PRN Reason: per Hypoglycemia Standing Ord. Heparin Sodium (Porcine) (Heparin Sodium,Porcine 5,000 Unit/Ml Vial) 5,000 unit SUBCUT Q12H [facility] Last Admin: 09/21/22 08:48 Dose: 5,000 unit Documented By: HEDY Hydromorphone HCl (Hydromorphone Hcl 0.5 Mg/0.5 Ml Syringe) 0.25 mg IVPUSH Q5M PRN; Protocol PRN Reason: Pain, Severe (Pain Scale 7-10) Iron Sucrose 200 mg/ Sodium (Chloride) 110 mls @ 440 mls/hr IV DAILY [facility] Stop: 09/22/22 09:14 Last Infusion: 09/21/22 09:26 Dose: 0 mls/hr Documented By: HEDY Insulin Glargine (Insulin Glargine,Hum.Rec.Anlog 100 Unit/Ml 10 Ml Vial) 18 unit SUBCUT DAILY [facility] Last Admin: 09/21/22 08:49 Dose: 18 unit Documented By: HEDY Insulin Human Lispro (Insulin Lispro 100 Unit/Ml 3 Ml Vial) 0 unit SUBCUT QIDACHS [facility]; Protocol Last Admin: 09/21/22 11:41 Dose: 6 unit Documented By: HEDY Isosorbide Mononitrate (Isosorbide Mononitrate 60 Mg Tab.Er.24h) 60 mg PO DAILY [facility]; Protocol Last Admin: 09/21/22 08:48 Dose: 60 mg Documented By: HEDY Loperamide HCl (Loperamide Hcl 2 Mg Capsule) 2 mg PO Q4H PRN PRN Reason: Diaper Rash Last Admin: 09/19/22 21:03 Dose: 2 mg Documented By: MIGUEL Omeprazole (Omeprazole 20 Mg Capsule.Dr) 20 mg PO BID@0630,1630 [facility] Last Admin: 09/21/22 06:39 Dose: 20 mg Documented By: SHENA Ondansetron HCl (Ondansetron Hcl 4 Mg/2 Ml Vial) 4 mg IVPUSH Q8H PRN PRN Reason: Nausea and Vomiting Ondansetron HCl (Ondansetron Hcl 4 Mg/2 Ml Vial) 4 mg IVPUSH ONCE PRN PRN Reason: Nausea and Vomiting Pharmacy Consult (Consult Rx Vancomycin Dosing) 1 each MISCELLANE DAILY PRN PRN Reason: Consult order Sertraline HCl (Sertraline Hcl 50 Mg Tablet) 50 mg PO DAILY [facility] Last Admin: 09/21/22 08:48 Dose: 50 mg Documented By: HEDY Sodium Bicarbonate (Sodium Bicarbonate 650 Mg Tablet) 1,300 mg PO BID [facility] Last Admin: 09/21/22 08:48 Dose: 1,300 mg Documented By: HEDY Trazodone HCl (Trazodone Hcl 50 Mg Tablet) 50 mg PO BEDTIME [facility] Last Admin: 09/20/22 20:41 Dose: 50 mg Documented By: CAMPBELL Labs CBC & Chem 7: 09/21/22 05:48 09/21/22 05:48 Labs: Laboratory Results - last 24 hr 09/16/22 09/20/22 09/20/22 06:14 15:23 17:13 MCV MCH MCHC RDW Plt Count MPV Absolute Nucleated RBC Nucleated RBC % (auto) Anion Gap Estim Creat Clear Calc Estimated GFR POC Glucose 236 H Random Glucose Calcium Random Vancomycin 18.5 IgG Total 1418 IgA Total 222 IgM 151 RAMSES Interpretation 09/20/22 09/21/22 09/21/22 19:24 05:48 05:48 MCV 82.2 MCH 26.4 L MCHC 32.2 RDW 14.1 Plt Count 198 MPV 10.7 Absolute Nucleated RBC 0.000 Nucleated RBC % (auto) 0.0 Anion Gap 17 Estim Creat Clear Calc 11.6 Estimated GFR 11 POC Glucose 222 H Random Glucose 133 H Calcium 7.9 L Random Vancomycin IgG Total IgA Total IgM RAMSES Interpretation 09/21/22 09/21/22 07:14 11:21 MCV MCH MCHC RDW Plt Count MPV Absolute Nucleated RBC Nucleated RBC % (auto) Anion Gap Estim Creat Clear Calc Estimated GFR POC Glucose 133 H 277 H Random Glucose Calcium Random Vancomycin IgG Total IgA Total IgM RAMSES Interpretation Microbiology Microbiology Results: Microbiology 09/19/22 Unknown Gram Stain - Final Finger Left Index Routine Culture - Final No growth after 2 days Assessment and Plan (1) Status post amputation of finger: Status: Acute Plan 67-year-old female with past medical history as mentioned above presents to the hospital with infected left finger #? cellulitis of left index finger? with tip necrosis, ? status post amputation? left index finger middle phalanx level,? arterial duplex negative,ESR 121 and CRP:6, initially treated with IV vanco and Zosyn antibiotic discontinued ? ? post surgery. blood? cultures neg x 48hrs, recommend outpatient follow-up [facility] orthopedic surgeon Dr. Panchal for dressing change call for an appointment take Tylenol and oxycodone for pain control #? NSTEMI-? elevated troponin, no EKG changes suggestive of? ACS, given the significant elevation troponin, patient treated with IV heparin times 48 hours, seen by Cardiology patient is not a candidate for cardiac ? ? catheterization due to multiple comorbidities, continue aspirin statins and beta-blockers,? echocardiogram showed EF 32%, moderate to severe pulmonary hypertension, moderate global hypokinesis and grade 2 diastolic ? ? dysfunction #? normocytic anemia?? received 2 prbc :7.7/24.2, anemia of chronic kidney disease, EGD showed gastritis/ duodenitis, guaiac negative stools ? ? received IV iron as per Nephrology? and given Procrit?, recommend outpatient follow-up with Nephrology for continued Procrit #? hypertension-? stable? blood pressure , continue Lasix, amlodipine 10 mg, Coreg 6.25 b.i.d. and isosorbide follow blood pressure closely #? diabetes is stable blood sugars continue insulin sliding scale, diabetic diet #? ckd stage 5? being followed by Nephrology no further intervention, recommend outpatient follow-up with Nephrology in 1 week # diarrhae: resolved, c diff ,stool wbc neg, Diarrhea possibly related to kayexalate use,? therefore discontinued Patient need continued inpatient hospitalization for safe discharge social staff worker arranging for safe discharge to rehab. Time Spent With Patient Time: Total time managing care of this patient today ____ minutes. Quality Stroke Does the patient have a stroke diagnosis?: No VTE Prior VTE?: No VTE Risk Level:: Medical - moderate - high VTE Device Contraindication: Treatment Not Indicated VTE Drug Contraindication: N/A - Med Ordered
[2022-09-21 15:33] VITALS: PULSE 68; RESP 19; TEMP 36.4; O2SAT 92
[2022-09-21 15:58] LABS: Glucose, Whole Blood 139 mg/dL (60-115)
[2022-09-21 19:42] VITALS: BP 129/57; PULSE 69; RESP 19; TEMP 36.4; O2SAT 93
[2022-09-21 19:59] LABS: Glucose, Whole Blood 207 mg/dL (60-115)
[2022-09-21] MEDS: Aspirin Enteric Coated 81 MG TABLET.DR PO (21:04)
[2022-09-21] MEDS: Atorvastatin Calcium 80 MG TABLET PO (21:04)
[2022-09-21] MEDS: traZODone HCL 50 MG TABLET PO (21:04)
[2022-09-21 23:52] VITALS: BP 120/61; PULSE 66; RESP 20; TEMP 36.3; O2SAT 93
[2022-09-22 03:24] VITALS: BP 143/103; PULSE 66; RESP 17; TEMP 37; O2SAT 94
[2022-09-22] MEDS: Omeprazole 20 MG CAPSULE.DR PO (05:56)
[2022-09-22 07:19] LABS: Glucose, Whole Blood 71 mg/dL (60-115)
[2022-09-22 07:39] VITALS: BP 163/70; PULSE 69; RESP 20; TEMP 36.4; O2SAT 96
--- NOTE | 2022-09-22 09:24 | MHC.CM.PN ---
PTS DC DELAYED YESTERDAY DUE TO LACK OF INSURANCE AUTH CM SPOKE WITH [facility] THIS MORNING, SHE CONFIRMS THEY NOW HAVE AUTH PT WILL DC AT 1100 HOURS TO [facility] WITH A PLAN TO TRANSITION TO LTC TRANSPORT TO BE PROVIDED BY [facility]
[2022-09-22] MEDS: Insulin Glargine,Hum.rec.anlog 100 UNIT/ML 10 ML VIAL 18 UNIT SUBCUT (09:37)
[2022-09-22] MEDS: Heparin Sodium,Porcine 5,000 UNIT/ML VIAL 5000 UNIT SUBCUT (09:37)
[2022-09-22] MEDS: Sertraline HCL 50 MG TABLET PO (09:38)
[2022-09-22] MEDS: Acetaminophen 325 MG TABLET 650 MG PO (09:38)
[2022-09-22] MEDS: Calcium + Vitamin D 250 MG TABLET PO (09:38)
[2022-09-22] MEDS: Furosemide 40 MG TABLET PO (09:38)
[2022-09-22] MEDS: carvediloL 6.25 MG TABLET PO (09:38)
[2022-09-22] MEDS: Isosorbide Mononitrate 60 MG TAB.ER.24H PO (09:38)
[2022-09-22] MEDS: amLODIPine Besylate 10 MG TABLET PO (09:38)
[2022-09-22] MEDS: Sodium Bicarbonate 650 MG TABLET 1300 MG PO (09:39)
[2022-09-22] MEDS: Clopidogrel Bisulfate 75 MG TABLET PO (09:39)
[2022-09-22] MEDS: Iron Sucrose Complex 200 MG in 0.9 % Sodium Chloride 100 ML 440 MG IV (09:39)
--- NOTE | 2022-09-22 10:01 | P.PNNP_ITS ---
Subjective Subjective Date of Service: 09/22/22 Interval history: awake alert history obtained via interpreter for the deaf offers no acute complaints Physical Exam Vital Signs: Vital Signs: Last Vital Signs Temp 97.5 F 09/22/22 07:39 Pulse 69 09/22/22 07:39 Resp 20 09/22/22 07:39 BP 163/70 H 09/22/22 07:39 Pulse Ox 96 09/22/22 07:39 O2 Del Method 09/22/22 07:39 O2 Flow Rate 2 09/19/22 07:23 Oxygen Flow Rate 2 09/14/22 17:05 BMI result Body Mass Index 35.9 Const: Other: General Awake alert, resting comfortably in no acute distress. Neck supple no JVD. CVS regular rate rhythm, Respiratory lungs clear to auscultation, no respiratory distress, no wheeze, no rhonchi. Gastrointestinal abdomen soft, nontender, bowel sounds audible, no guarding , no rigidity. Extremities left BKA, right with no edema, left index finger dressing intact no drainage Neuro nonfocal ,speech clear. Skin no rash psych appropriate affect General: cooperative, healthy appearing, comfortable, no acute distress, ill appearing and tired appearing Nutritional Appearance: well nourished Orientation/consciousness: oriented to person, oriented to place and patient oriented x3 Limitations: No language barrier HEENT: Other: Unremarkable Head: Yes normal to inspection, Yes normocephalic and Yes atraumatic Eyes: General: appearance normal, both eyes and all related structures EOM: EOMs intact bilaterally Neck: Neck: Yes normal visual inspection Chest: Chest palpation & inspection: normal inspection of the chest Resp: Other: Clear and equal bilaterally without wheezes rales or rhonchi but it is diminished throughout Effort & Inspection: normal respiratory effort, able to speak in complete sentences, no audible wheezes, no cough and no respiratory distress Auscultation: clear to auscultation bilaterally Cardio: Other: Regular rate and rhythm without murmurs rubs or gallops Palpation: normal PMI Rate: regular rate Rhythm: regular rhythm Heart sounds: S1 normal heart sound present, S2 normal heart sound present, no gallops, no murmurs and no rubs Peripheral pulses: Peripheral pulses 2+ throughout GI: Other: Abdomen is soft nontender nondistended Inspection: Yes normal to inspection Palpation (GI): Soft to palpation Auscultation: normal bowel sounds Back/Spine/Pelvis: Other: unremarkable Skin: Other: Warm, dry, no rashes General skin exam: no rashes or lesions noted and turgor normal Lesions: no lesions Rashes: no rashes Neuro: Other: Nonfocal neuro exam General: oriented to person, oriented to place and patient oriented x3 Extrem: Other: Left hand bandages are c/d/i. NVI. General: Yes no pedal edema Psych: Mental Status: mental status grossly normal Affect: normal affect Attitude: cooperative Objective Data Labs CBC & Chem 7: 09/21/22 05:48 09/21/22 05:48 Labs: Laboratory Results - last 24 hr 09/21/22 09/21/22 09/21/22 11:21 15:52 19:53 POC Glucose 277 H 139 H 207 H 09/22/22 07:15 POC Glucose 71 Microbiology Microbiology Results: Microbiology 09/19/22 Unknown Finger Left Index Gram Stain - Final 09/19/22 Unknown Finger Left Index Routine Culture - Final No growth after 2 days 09/14/22 17:47 Blood - Venous Blood Culture - Final No growth after 5 days. 09/14/22 17:37 Blood - Venous Blood Culture - Final No growth after 5 days. Procedures Date of Service Date of Service: 09/22/22 Assessment & Plan Assessment and plan (1) Status post amputation of finger: Status: Acute (2) Cardiomyopathy: Status: Acute (3) CKD (chronic kidney disease) stage 5, GFR less than 15 ml/min: Status: Acute Assessment and Plan: ?? Has baseline CKD 4 Renal function FLUCTUATES BUT FAIRLY STABLE k CONTROLLED WITH LOKELMA ;No indication for HD IV IRON ORDERED WILL F/U OP Time Spent With Patient Time: Total time managing care of this patient today ____ minutes. Progress Note: Quality Stroke Does the patient have a stroke diagnosis?: No
[2022-09-22 10:54] LABS: Glucose, Whole Blood 107 mg/dL (60-115)
[2022-09-22 11:03] VITALS: BP 151/63; PULSE 67; RESP 20; TEMP 36.7; O2SAT 95
--- NOTE | 2022-09-22 11:40 | MHC.CM.PN ---
CM MET WITH PTS DAUGHTER, SPENCER, TO DISCUSS DC PLANS SPENCER WAS QUITE UPSET REPORTING SHE HAS BEEN REQUESTING TO SPEAK TO A CM FOR TWO DAYS SHE REPEATED MULTIPLE TIMES THAT SHE WAS UPSET CM HAD NOT BEEN THERE CM EXPLAINED THIS WAS THE FIRST DAY FOLLOWING THIS PT AND OFFERED HER THE APPROPRIATE CONTACT TO FILE A COMPLAINT SPENCER REPORTS SHE HAD POLICE THERE AND THE [employer] AND THEY WANTED TO SPEAK TO CM T/W AGAIN EXPLAINED THIS WAS THE 1ST DAY WORKING WITH THE PT SPENCER PULLED OUT HER PHONE AND DISPLAYED MANY PICTURES OF THE CONDITIONS AT [employer] EXPLAINED PT HAD A BED OFFER AT A DIFFERENT [facility] AND WOULD GO THERE CM HAD TO LEAVE FOR ROUNDS UPON RETURN, SPENCER HAD LEFT HOWEVER PTS RN HAD INFORMED HER OF DC TIME PT WILL DC TO [facility] [place] TODAY VIA [facility] OF NOTE: PT IS ALSO AWARE OF DC PLAN/TIME AND FULLY ALERT AND ORIENTED
--- NOTE | 2022-09-22 12:09 | PM.DS ---
DS: Providers Provider Date of Service: 09/22/22 Date of admission: 09/15/22 00:27 Primary care physician: Alexys Avila MD Consults: 09/14/22 22:13 Consult to Cardiology Stat Consulting Provider: Andrea Vides Reason for consultation: troponins trending upwards Has provider been notified: Yes 09/15/22 05:47 Consult to General Surgery Routine Consulting Provider: Fred Wisdom Reason for consultation: infected finger Has provider been notified: No 09/15/22 08:21 Consult to Orthopedics Routine Consulting Provider: Toya Panchal Reason for consultation: Left hand finger necrosis 09/15/22 11:44 Consult to Nephrology Routine Consulting Provider: Jian Chao Reason for consultation: ckd/anemia Has provider been notified: No DS: Diagnosis Discharge Diagnosis (1) Status post amputation of finger: Status: Acute (2) Cardiomyopathy: Status: Acute (3) CKD (chronic kidney disease) stage 5, GFR less than 15 ml/min: Status: Acute DS: Summary Hospital Course Hospital Course: history of presenting illness Date of Service: 09/15/22 Chief Complaint:? feeling sick ?67-year-old female Albanian-speaking only, history is obtained with the help of an office services associate? with past medical history of diabetes, history of heart failure, CVA, chronic anemia, CKD, HLD, HTN among others, presents to the hospital? after her daughter called the ambulance because she noticed her finger? appeared infected and necrotic.? 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 Patient herself feels very sick, she reports the night before she felt ? out of it ,? and had vomiting. when I ask her about her fingers, patient denies any pain, reports that she noticed the necrotic tissue? 2 days ago,? She reports no arm pain,? denies any cough, no diarrhea or constipation, no urinary symptoms and no lower extremity edema.? Patient denies any chest pain, no palpitations.? On arrival to the ED patient hemodynamically stable, also had a fever of 100.4, respiratory rate of 22, heart rate of 102.? Labs are significant for? WBC count of? 15.7,? hemoglobin of 7.8, hematocrit of 2 any 4.1, normal MCV, creatinine of 3.87 which is around her baseline, troponin of 335, increased to 405, UA positive Arterial duplex negative of the upper extremities ?hand x-ray x-ray shows no radiographic evidence of osteomyelitis hospital course 67-year-old female with past medical history as mentioned above presents to the hospital with infected left finger #? cellulitis of left index finger? with tip necrosis, ? status post amputation? left index finger middle phalanx level,? arterial duplex negative,ESR 121 and CRP:6, initially treated with IV vanco and Zosyn antibiotic discontinued post surgery. blood? cultures neg x 48hrs, recommend outpatient follow-up with orthopedic surgeon Dr. Panchal for dressing change call for an appointment take Tylenol and oxycodone for pain control #? NSTEMI-? elevated troponin, no EKG changes suggestive of? ACS, given the significant elevation troponin, patient treated with IV heparin times 48 hours, seen by Cardiology patient is not a candidate for cardiac catheterization due to multiple comorbidities, continue aspirin statins and beta-blockers,? echocardiogram showed EF 32%, moderate to severe pulmonary hypertension, moderate global hypokinesis and grade 2 diastolic dysfunction #? normocytic anemia?? received 2 prbc :7.7/24.2, anemia of chronic kidney disease, EGD showed gastritis/ duodenitis, guaiac negative stools ? ? received IV iron as per Nephrology and given Procrit?, recommend outpatient follow-up with Nephrology for continued Procrit #? hypertension-? stable? blood pressure , continue Lasix, amlodipine 10 mg, Coreg 6.25 b.i.d. and isosorbide follow blood pressure closely #? diabetes is stable blood sugars continue insulin sliding scale, diabetic diet #? ckd stage 5? being followed by Nephrology no further intervention, recommend outpatient follow-up with Nephrology in 1 week # diarrhae: resolved, c diff ,stool wbc neg, Diarrhea possibly related to kayexalate use, therefore discontinued Time Spent with Patient Time attestation: Total time managing care of this patient today ____ minutes. Discharge coordination time: Greater than 30 minutes Quality: Safe Use of Opioids Does Pt have an Active Cancer Diagnosis on the Problem List?: No Quality: Stroke Does the patient have a stroke diagnosis?: No Physical Exam Vital Signs: Vital Signs: Last Vital Signs Temp 98.1 F 09/22/22 11:03 Pulse 67 09/22/22 11:03 Resp 20 09/22/22 11:03 BP 151/63 H 09/22/22 11:03 Pulse Ox 95 09/22/22 11:03 O2 Del Method 09/22/22 11:03 O2 Flow Rate 2 09/19/22 07:23 Oxygen Flow Rate 2 09/14/22 17:05 BMI result Body Mass Index 35.9 Const: Other: General Awake alert, resting comfortably in no acute distress. Neck supple no JVD. CVS regular rate rhythm, Respiratory lungs clear to auscultation, no respiratory distress, no wheeze, no rhonchi. Gastrointestinal abdomen soft, nontender, bowel sounds audible, no guarding , no rigidity. Extremities left BKA, right with no edema, left index finger dressing intact no drainage Neuro nonfocal ,speech clear. Skin no rash psych appropriate affect General: cooperative, healthy appearing, comfortable, no acute distress, ill appearing and tired appearing Nutritional Appearance: well nourished Orientation/consciousness: oriented to person, oriented to place and patient oriented x3 Limitations: No language barrier HEENT: Other: Unremarkable Head: Yes normal to inspection, Yes normocephalic and Yes atraumatic Eyes: General: appearance normal, both eyes and all related structures EOM: EOMs intact bilaterally Neck: Neck: Yes normal visual inspection Chest: Chest palpation & inspection: normal inspection of the chest Resp: Other: Clear and equal bilaterally without wheezes rales or rhonchi but it is diminished throughout Effort & Inspection: normal respiratory effort, able to speak in complete sentences, no audible wheezes, no cough and no respiratory distress Auscultation: clear to auscultation bilaterally Cardio: Other: Regular rate and rhythm without murmurs rubs or gallops Palpation: normal PMI Rate: regular rate Rhythm: regular rhythm Heart sounds: S1 normal heart sound present, S2 normal heart sound present, no gallops, no murmurs and no rubs Peripheral pulses: Peripheral pulses 2+ throughout GI: Other: Abdomen is soft nontender nondistended Inspection: Yes normal to inspection Palpation (GI): Soft to palpation Auscultation: normal bowel sounds Back/Spine/Pelvis: Other: unremarkable Skin: Other: Warm, dry, no rashes General skin exam: no rashes or lesions noted and turgor normal Lesions: no lesions Rashes: no rashes Neuro: Other: Nonfocal neuro exam General: oriented to person, oriented to place and patient oriented x3 Extrem: Other: Left hand bandages are c/d/i. NVI. General: Yes no pedal edema Psych: Mental Status: mental status grossly normal Affect: normal affect Attitude: cooperative DS: Data Data Completed and Pending Completed studies during hospitalization [Text1]: Pending at discharge 09/19/22 10:45 Surgical [PTH] Routine Procedures Dilation of Esophagus, Via Natural or Artificial Opening Endoscopic (01/31/22) Dilation of Upper Esophagus, Via Natural or Artificial Opening Endoscopic (08/16/21) Introduction of Other Thrombolytic into Peripheral Vein, Percutaneous Approach (06/05/21) Transfusion of Nonautologous Red Blood Cells into Peripheral Vein, Percutaneous Approach (12/24/20) Labs on day of discharge: Laboratory Results - last 24 hr 09/21/22 09/21/22 09/22/22 15:52 19:53 07:15 POC Glucose 139 H 207 H 71 09/22/22 10:50 POC Glucose 107 Discharge Plan Discharge Anticipated Discharge Date/Time: 09/21/22 11:12 Patient Disposition: [facility] Discharge Diagnosis: left index finger tip necrosis status post amputation non ST-elevation NE acute on chronic normocytic anemia chronic kidney disease stage 5 diarrhea Referrals: Physician,Unknown J [Physician] - 1 Week Discharge Medications: New oxycodone 5 mg tablet 5 mg PO Q6H PRN (Reason: pain) Qty: 20 0RF Rx Instructions: Partial Fill upon patient request. Continued furosemide [Lasix] 40 mg tablet 40 mg PO BID 90 Days Qty: 180 0RF Rx Instructions: Please call and schedule cardiology appt. carvedilol 6.25 mg tablet 6.25 mg PO BID Qty: 60 5RF Rx Instructions: must administer with a meal/food - Take one tablet twice daily atorvastatin 80 mg tablet 80 mg PO BEDTIME trazodone 50 mg tablet 50 mg PO BEDTIME clopidogrel 75 mg tablet 75 mg PO DAILY aspirin 81 mg tablet,delayed release (DR/EC) 81 mg PO BEDTIME magnesium oxide 400 mg (241.3 mg magnesium) tablet 400 mg PO BID sertraline 50 mg tablet 50 mg PO DAILY calcium carbonate-vitamin D3 600 mg(1,500mg) -400 unit tablet 1 tab PO BID insulin glargine [Lantus Solostar U-100 Insulin] 100 unit/mL (3 mL) insulin pen 18 unit subcut DAILY amlodipine 10 mg Tablet 10 mg PO DAILY 30 Days Qty: 30 0RF Protocol: Hold for SBP< HOLD for SBP < : 90 famotidine 40 mg tablet 40 mg PO BID 30 Days Qty: 60 0RF sodium bicarbonate 650 mg Tablet 650 mg PO BID 30 Days Qty: 60 0RF ipratropium-albuterol 0.5 mg-3 mg(2.5 mg base)/3 mL Solution For Nebulization 3 ml INHALATION Q4H PRN (Reason: Wheezing) acetaminophen 500 mg tablet 2 tab PO QID PRN (Reason: fever) insulin lispro [Humalog U-100 Insulin] 100 unit/mL Solution 1 sliding scale dose SUBCUT USEASDIRECTD Rx Instructions: 61-200: 0 UNITS 201- 250: 4U 251-300: 6U 301-350: 8U 351-400:10U 401+: 12U Discontinued sodium polystyrene sulfonate Powder 15 g PO DAILY 30 Days Qty: 454 0RF Discharge Orders: Discharge Order (Routine); Ordered 09/21/22 Ordered By: Gustavo Treviño Diet: Diabetic diet Activity on Discharge: As tolerated Stand Alone Forms: Patient Portal Discharge page Care Plan Goals: status post amputation of left index finger up to level of middle phalanx, dressing change by orthopedic surgery had postop appointment take Tylenol and oxycodone for pain control continue all home medications as before Health Concerns: as above Plan of Treatment: outpatient follow-up with Nephrology in [address] Pang, outpatient follow-up with primary care physician outpatient follow-up with Dr. Panchal for dressing change at postop appointment call for an appointment Assessment: as above
== END 2022-09-22 12:35 | disposition skilled nursing facility (03) | DRG 853 ==
LOC: HO.ED 21:55 → HO.EDOVER 09-15 00:45 → HO.IMC 09-15 13:55
PROVIDERS: Anesthesiology; Hospitalist; Internal Medicine; Internal Medicine Nephrology; Orthopaedic Surgery; Admitting Provider Internal Medicine; Emergency Provider Emergency Medicine; PCP Internal Medicine; Visit Provider Internal Medicine
PROC: 0X6P0Z2 Detachment at Left Index Finger, Mid, Open Approach (ICD-10-PCS; CPT 26951; principal; 2022-09-19 10:00)
DX: A41.9 Sepsis, unspecified organism (principal); I21.4 Non-ST elevation (NSTEMI) myocardial infarction; I50.33 Acute on chronic diastolic (congestive) heart failure; I13.2 Hypertensive heart and chronic kidney disease with heart failure and with stage 5 chronic kidney disease, or end stage renal disease; N18.5 Chronic kidney disease, stage 5; I96 Gangrene, not elsewhere classified; I42.9 Cardiomyopathy, unspecified; L03.012 Cellulitis of left finger; D50.9 Iron deficiency anemia, unspecified; E11.22 Type 2 diabetes mellitus with diabetic chronic kidney disease; I25.10 Atherosclerotic heart disease of native coronary artery without angina pectoris; I27.20 Pulmonary hypertension, unspecified; E66.01 Morbid (severe) obesity due to excess calories; N25.0 Renal osteodystrophy; R19.7 Diarrhea, unspecified; Z68.36 Body mass index [BMI] 36.0-36.9, adult; Z20.822 Contact with and (suspected) exposure to COVID-19; Z99.81 Dependence on supplemental oxygen; Z89.512 Acquired absence of left leg below knee; Z91.040 Latex allergy status; Z79.4 Long term (current) use of insulin; Z79.02 Long term (current) use of antithrombotics/antiplatelets; Z79.82 Long term (current) use of aspirin; Z79.899 Other long term (current) drug therapy
CPT/HCPCS: 0241U; 36415; 73130; 80048; 80053; 80202; 81001; 82272; 82565; 82607; 82728; 82746; 82784; 82947; 83521; 83540; 83605; 83970; 84100; 84484; 85014; 85018; 85025; 85027; 85610; 85652; 85730; 86140; 86334; 86850; 86900; 86901; 86923; 87040; 87070; 87205; 87493; 87507; 88305; 88311; 89055; 93005; 93306; 93930; 97161; 99285; J0690; J0885; J1756; J1940; J2543; J2795; J3010; J3370; P9016; Q9957

== ENCOUNTER 2022-10-10 14:27 | Outpatient (REF) | payer OTHER, SELFPAY | END 2022-10-10 14:28 | disposition home or self-care (01) | LOC: HO.HOSX 14:27 | PROVIDERS: Visit Provider Orthopaedic Surgery | DX: Z13.89 Encounter for screening for other disorder (principal) ==

== ENCOUNTER 2022-10-11 10:55 | Outpatient (REF) | payer OTHER, SELFPAY ==
--- NOTE | ~2022-10-11 | XR_ITS ---
EXAMINATION: XR HAND, LEFT CLINICAL INFORMATION: M79.642 - Pain in left hand COMPARISON: Left hand radiographs 09/14/2022 TECHNIQUE: PA, lateral, and oblique views of the left hand. FINDINGS: There has been interval amputation at base index finger middle phalanx since prior exam 09/14/2022. There is an overlying dressing. No periostitis or gas tracking in the soft tissues. Other findings are chronic with old amputation base third finger distal phalanx. There are extensive atherosclerotic calcifications vasculature. No acute or healing fracture or dislocation. Scattered articular degenerative changes are again present. XR/XR hand LT min 3V IMPRESSION: -Interval amputation base index finger middle phalanx since prior exam 09/14/2022. -Overlying dressing. No periostitis or gas tracking in soft tissues.
== END 2022-10-11 10:56 | disposition home or self-care (01) ==
LOC: HO.HOSX 10:55
PROVIDERS: Visit Provider Physician Assistant
DX: M79.642 Pain in left hand (principal); I96 Gangrene, not elsewhere classified
CPT/HCPCS: 73130

== ENCOUNTER 2022-10-14 12:05 | Inpatient (IN) | payer OTHER, SELFPAY ==
--- NOTE | ~2022-10-14 | XR_ITS ---
EXAMINATION: XR CHEST CLINICAL INFORMATION: Cough and shortness of breath. COMPARISON: Chest radiograph 05/05/2022. TECHNIQUE: Frontal view of the chest was obtained. FINDINGS: Stable appearance of the cardiomediastinal silhouette. Diffuse interstitial patchiness and perihilar prominence, increased compared to 05/05/2022. No pleural effusion or pneumothorax. No acute osseous abnormalities. The visualized upper abdomen is within normal limits. XR/XR chest 1V IMPRESSION: Diffuse interstitial patchiness and perihilar prominence, increased compared to 05/05/2022; findings are suggestive of an atypical/viral infection. Recommend follow-up after treatment.
--- NOTE | ~2022-10-14 | CT_ITS ---
EXAMINATION: CT ABDOMEN AND PELVIS WITHOUT CONTRAST CLINICAL INFORMATION: Diarrhea. COMPARISON: CT abdomen/pelvis 03/07/2022. TECHNIQUE: Multidetector volumetric imaging was performed from the superior aspect of the liver through the pubic symphysis. Sagittal and coronal reformatted images were obtained on the technologist's workstation. This CT examination was performed using dose optimization techniques as appropriate, variously including the following: *Automated exposure control *Adjustment of mA and/or kV according to patient size (this includes techniques or standardized protocols for targeted exams where dose is matched to indication/reason for exam; i.e. extremities or head) *Use of iterative reconstruction technique DLP: 670 mGy-cm FINDINGS: LUNG BASES: A 6 mm nodule in the right lung base (4:76) is unchanged when compared to 02/25/2021. Small calcified granuloma redemonstrated in the right middle lobe (4:8). Mild bronchial wall thickening with mosaic attenuation of the lung parenchyma and left greater than right subsegmental atelectasis versus scarring. Coronary artery calcifications are partially seen. LIVER, GALLBLADDER, AND BILIARY TREE: Limited noncontrast examination of the liver without discrete focal lesion. Cholecystectomy. No biliary ductal dilatation. PANCREAS: Limited noncontrast examination with atrophic parenchyma but otherwise unremarkable. SPLEEN: Limited noncontrast examination, unremarkable. ADRENAL GLANDS: No adrenal nodule. KIDNEYS AND URETERS: No nephrolithiasis or hydronephrosis. Mild symmetric bilateral perinephric fat stranding. BLADDER: Unremarkable. GASTROINTESTINAL TRACT: Nonspecific gastric distention with heterogeneous and mixed density debris. No evidence of small bowel dilatation. Again noted anastomosis within loops of small bowel in the lower abdomen. Normal appendix. No pericolonic inflammatory changes or evidence of bowel obstruction. Moderate to large stool content in the colon and rectum with some questionable rectal wall thickening but no significant perirectal fat stranding. ABDOMINAL WALL: Postoperative changes in the lower abdominal wall with a hernial mesh. There is increased soft tissue thickening in the abdominal wall anterior to the mesh, for instance measuring 1.8 cm on axial image 73, series 3. No evidence of recurrent hernia. Dependent anasarca. There is skin thickening of the intergluteal folds. LYMPH NODES: Scattered subcentimeter mesenteric and retroperitoneal lymph nodes are not convincingly changed not meeting pathological size criteria. VASCULAR: Extensive atherosclerotic disease. The abdominal aorta is of normal diameter. PELVIC VISCERA: Hysterectomy. No pelvic mass. Small volume of free fluid in the presacral space is unchanged. OSSEOUS STRUCTURES: Degenerative changes of the spine. No acute or aggressive appearing osseous abnormalities. CT/CT abdomen pelvis wo IV con IMPRESSION: 1. Moderate to large stool content in the colon and rectum with questionable rectal wall thickening but no significant perirectal fat stranding. Findings could be related with constipation and early stercoral colitis in the appropriate clinical context. 2. Nonspecific gastric distention with heterogeneous and mixed density debris. Correlate clinically for gastroparesis. 3. Increased soft tissue thickening of the abdominal wall anterior to the lower abdominal hernial mesh, recommend correlation with physical examination for signs of infection. 4. Increased skin thickening with mild fat stranding of the intergluteal folds, recommend correlation with physical examination for decubitus ulcers or infection.
[2022-10-14 12:16] VITALS: BP 117/93; BP 131/67; PULSE 71; PULSE 78; RESP 18; TEMP 36.5; O2SAT 96; O2SAT 97; BMI 32.6
--- NOTE | 2022-10-14 12:16 | ED_ITS ---
HPI - General Adult General Chief complaint: General Medical Stated complaint: FLU-LIKE SYMPTOMS,NAUSEA,CHILLS Time Seen by Provider: 10/14/22 12:16 Source: patient History of Present Illness HPI narrative: 67-year-old female with a past medical history of CKD, anemia, cardiomyopathy, diabetes, HTN, gastroparesis, GERD, HLD, IBS, left index finger tip necrosis s/p I&D/amputation, presenting to the ED complaining of nausea, vomiting, and nonbloody diarrhea times today. Denies abdominal pain, fever, chills, cough, chest pain, shortness of breath, headache, lightheadedness/dizziness, dysuria/hematuria Onset (ago): hour(s) Related Data Home Medications Medication Instructions Recorded Confirmed aspirin 81 mg tablet,delayed 81 mg PO BEDTIME 06/20/21 09/15/22 release atorvastatin 80 mg tablet 80 mg PO BEDTIME 06/20/21 09/15/22 calcium carbonate 600 mg-vitamin 1 tab PO BID 06/20/21 09/15/22 D3 10 mcg (400 unit) tablet clopidogrel 75 mg tablet 75 mg PO DAILY 06/20/21 09/15/22 magnesium oxide 400 mg (241.3 mg 400 mg PO BID 06/20/21 09/15/22 magnesium) tablet sertraline 50 mg tablet 50 mg PO DAILY 06/20/21 09/15/22 trazodone 50 mg tablet 50 mg PO BEDTIME 06/20/21 09/15/22 insulin glargine 100 unit/mL (3 18 unit subcut DAILY 03/25/22 09/15/22 mL) subcutaneous pen (Lantus Solostar U-100 Insulin) acetaminophen 500 mg tablet 2 tab PO QID PRN fever 05/05/22 09/15/22 insulin lispro 100 unit/mL 1 sliding scale dose subcut 05/05/22 09/15/22 subcutaneous solution (Humalog USEASDIRECTD U-100 Insulin) ipratropium 0.5 mg-albuterol 3 mg 3 ml inhalation Q4H PRN Wheezing 05/05/22 09/15/22 (2.5 mg base)/3 mL nebulization soln Previous Rx's Medication Instructions Recorded furosemide 40 mg tablet (Lasix) 40 mg PO BID 90 days #180 tabs 02/18/22 carvedilol 6.25 mg tablet 6.25 mg PO BID #60 tabs 02/21/22 amlodipine 10 mg tablet 10 mg PO DAILY 30 days #30 tabs 03/03/22 famotidine 40 mg tablet 40 mg PO BID 30 days #60 tabs 03/03/22 sodium bicarbonate 650 mg tablet 650 mg PO BID 30 days #60 tabs 03/03/22 oxycodone 5 mg tablet 5 mg PO Q6H PRN pain #20 tabs 09/21/22 Allergies Allergy/AdvReac Type Severity Reaction Status Date / Time latex [LATEX] Allergy Intermediate ITCHY Verified 10/11/22 11:59 Review of Systems Review of Systems: Constitutional: No Fever, No Chills, No Fatigue, No Malaise ENT/Mouth: No Ear Pain, No Nasal Congestion, No sore throat, No Rhinorrhea, No Swallowing Difficulty Eyes: No Eye Pain, No Swelling, No Redness, No Vision Changes Cardiovascular: No Chest Pain, No SOB, No Edema, No Palpitations Respiratory: No Cough, No Sputum, No Dyspnea Gastrointestinal: + Nausea, + Vomiting, + Diarrhea, No Constipation, No Abdomi nal pain, Genitourinary: No Dysuria, No Urinary Frequency, No Hesitancy Musculoskeletal: No joint pain, No Myalgias, No Joint Swelling Skin: No Skin Lesions, No rash Neuro: No Weakness, No Loss of Consciousness, No Dizziness, No Headache Yes all other systems are reviewed and are negative Constitutional: Constitutional: Reports as per [facility] Past Medical History Attestation statement: The following information was validated with the patient. Medical History Acute on chronic renal failure Acute worsening of stage 4 chronic kidney disease Anemia Blister of finger without infection Cardiomyopathy Cholecystectomy planned Chronic heart failure with preserved ejection fraction (HFpEF) Chronic kidney failure CKD (chronic kidney disease) CKD (chronic kidney disease) stage 3, GFR 30-59 ml/min CKD (chronic kidney disease) stage 4, GFR 15-29 ml/min CKD (chronic kidney disease) stage 5, GFR less than 15 ml/min CKD (chronic kidney disease), stage IV Congestive heart failure Diabetes Diabetes mellitus Elevated d-dimer Elevated troponin Essential hypertension Gastroparesis Generalized weakness GERD (gastroesophageal reflux disease) Hand pain Hernia HLD (hyperlipidemia) HTN (hypertension) Hypomagnesemia Irritable bowel syndrome with diarrhea Lightheadedness Low blood pressure Non-ST elevated myocardial infarction Nonischemic cardiomyopathy Normocytic anemia Other and unspecified hyperlipidemia Pharyngoesophageal dysphagia Type 2 diabetes mellitus with unspecified complications UTI (urinary tract infection) Surgical History H/O: hysterectomy History of esophagogastroduodenoscopy (EGD) Hx of colonoscopy Hx of eye surgery Family History Family History Father Lung cancer Mother Diabetes HTN (hypertension) Heart disease Sister Diabetes Heart disease Brother Heart disease Son Diabetes Daughter Diabetes Social History Social History Household Members: Unknown / Unable to assess Household Members Other:: SNF Housing: Assisted Living Facility Do you presently have visiting nurse or other home services: No Unable to assess alcohol history related to: Unknown Alcohol intake: never Patient Tobacco Use Status: Never used Tobacco Smoked in Last 30 Days: No Second Hand Smoke Exposure: No Use of substances other than those prescribed or required for medical reasons: No Advance Directives: Yes Advance Directives on File: Yes Advance Directives Date on File: 02/02/22 service: No Current occupational status: disabled Physical Exam ED Vital Signs: Vital Signs - 24 hr 10/14/22 12:16 10/14/22 12:28 10/14/22 16:17 Temperature 97.7 F 97.9 F 98.2 F Pulse Rate 71 68 71 Respiratory Rate 18 18 16 Blood Pressure 117/93 H 95/72 124/45 L Pulse Oximetry 97 97 97 Oxygen Delivery Method Room Air Room Air Room Air 10/14/22 16:57 Temperature Pulse Rate 76 Respiratory Rate 17 Blood Pressure Pulse Oximetry Oxygen Delivery Method BMI result Body Mass Index 32.6 Const General: cooperative, comfortable and no acute distress Orientation/consciousness: patient oriented x3 Limitations: no limitations HENMT Head: Yes normal to inspection and Yes atraumatic Ears: hearing grossly normal bilaterally General nose exam: Normal external nose present Face and sinus: Yes normal facial exam Throat: Yes posterior oropharynx normal Eyes General: appearance normal, both eyes and all related structures Pupils: Equal, round and reactive pupils present EOM: EOMs intact bilaterally Neck Neck: Yes normal visual inspection and Yes no meningeal signs Resp Effort & Inspection: normal respiratory effort and no respiratory distress Auscultation: clear to auscultation bilaterally, no crackles, no rales, no rhonchi and no wheezes Cardio Rate: regular rate Heart sounds: S1 normal heart sound present and S2 normal heart sound present GI Inspection: Yes normal to inspection Palpation (GI): Soft to palpation, nontender, no guarding and not rigid Skin Rashes: no rashes Wounds: no wounds Neuro General: patient oriented x3, tone normal and no meningeal signs Cranial nerves: Yes Equal, round and reactive pupils present Gait exam (Neuro): Normal gait present Extrem Other: Left index finger amputation site with sutures intact, appropriate wound healing. No cellulitis, fluctuance/induration or drainage Course Course Course Narrative: -1330--H&H better than patient's baseline. Acute on chronic CKD with a BUN of 70 and a creatinine of 4.65. Hyperkalemic to 6.7 > EKG, IVF, Lokelma, calcium, IV dextrose and insulin ordered >> EKG w/o changes -UA infected. Patient with history of ESBL > will give IV Rocephin in the ED -1634--repeat BMP with minimal improvement potassium now 6.2, BUN of 69 and creatinine of 4.47 >> will order another round of Lokelma, dextrose, insulin, and albuterol > no need for emergent dialysis at this time. Plan to admit for further management and monitoring -nephrology aware without any further recommendations at this time. Medications Administered Discontinued Medications Generic Name Dose Route Start Last Admin Trade Name Wang PRN Reason Stop Dose Admin Albuterol Sulfate 7.5 mg/ 10 mg 10/14/22 16:49 10/14/22 16:55 Albuterol Sulfate 2.5 mg INHALE 10/14/22 16:50 10 mg ONCE ONE Administration Dextrose 25 gm 10/14/22 13:26 10/14/22 14:12 Dextrose 50 % 25 Gm/50 Ml Syringe IVPUSH 10/14/22 13:27 25 gm ONCE ONE Administration Dextrose 25 gm 10/14/22 16:34 10/14/22 16:50 Dextrose 50 % 25 Gm/50 Ml Syringe IVPUSH 10/14/22 16:35 25 gm ONCE ONE Administration Sodium Chloride 500 mls @ 999 mls/hr 10/14/22 12:30 10/14/22 14:14 Ns IV 10/14/22 13:00 Infused .Q31M MATTY Infusion Calcium Gluconate 1 gm in 50 mls @ 50 mls/hr 10/14/22 13:26 10/14/22 15:19 Calcium Gluconate IV 10/14/22 14:25 Infused ONCE ONE Infusion Sodium Chloride 500 mls @ 999 mls/hr 10/14/22 13:30 10/14/22 14:51 Ns IV 10/14/22 14:00 Infused .Q31M MATTY Infusion Ceftriaxone Sodium 1 gm/ 50 mls @ 100 mls/hr 10/14/22 13:56 10/14/22 15:58 Sodium Chloride IV 10/14/22 14:25 Infused ONCE ONE Infusion Insulin Human Regular 10 unit 10/14/22 13:26 10/14/22 14:12 Insulin Regular, Human 100 Unit/Ml 3 Ml Vial IVPUSH 10/14/22 13:27 10 unit ONCE ONE Administration Insulin Human Regular 10 unit 10/14/22 16:34 10/14/22 16:50 Insulin Regular, Human 100 Unit/Ml 3 Ml Vial IVPUSH 10/14/22 16:35 10 unit ONCE ONE Administration Sodium Zirconium Cyclosilicate 10 gm 10/14/22 13:26 10/14/22 14:14 Sodium Zirconium Cyclosilicate 10 Gm Powd.Pack PO 10/14/22 13:27 10 gm ONCE ONE Administration Sodium Zirconium Cyclosilicate 10 gm 10/14/22 16:34 10/14/22 16:50 Sodium Zirconium Cyclosilicate 10 Gm Powd.Pack PO 10/14/22 16:35 10 gm ONCE ONE Administration Medical Decision Making Medical Decision Making MDM Narrative: 67-year-old female with a past medical history of CKD, anemia, cardiomyopathy, diabetes, HTN, gastroparesis, GERD, HLD, IBS, left index finger tip necrosis s/p I&D/amputation, presenting to the ED complaining of nausea, vomiting, and nonbloody diarrhea times today. On exam blood pressure soft, NAD, nontoxic appearing, abdomen soft/nontender. Concern for viral illness vs gastroenteritis. Low suspicion for appendicitis/diverticulitis/cholecystitis Plan: COVID-19/influenza/RSV testing, labs, UA, IVF, p.o. challenge Differential Diagnosis Differential Diagnoses: The differential diagnosis associated with the presentation includes as above Admission/Observation Consideration of admission/observation: Escalation of care including admission/observation considered Lab Data MDM Lab Attestation statement: I reviewed the patient's lab results. 10/14/22 12:35 10/14/22 12:35 Labs: Lab Results 10/14/22 10/14/22 10/14/22 Range/Units 12:35 12:35 12:35 WBC 11.1 H (4.8-10.8) X10*3/uL RBC 4.26 D (4.20-5.50) X10*6/uL Hgb 11.0 L D (12.0-16.0) g/dl Hct 35.6 L D (37.0-47.0) % MCV 83.6 (80.0-98.0) fL MCH 25.8 L (27.0-33.0) pg MCHC 30.9 L (31.0-35.0) g/dl RDW 14.5 (11.0-16.0) % Plt Count 265 D (160-400) X10*3/uL MPV 10.2 (9.4-12.3) fL Immature Gran % (Auto) 0.3 (0.0-0.4) % Neut % (Auto) 76.8 H (45-73) % Lymph % (Auto) 15.1 L (20-40) % [place] % (Auto) 5.7 (2-11) % Eos % (Auto) 1.8 (0-4) % Baso % (Auto) 0.3 (0-2) % Lymph # (Auto) 1.7 (1.2-4.9) X10*3/uL [place] # (Auto) 0.6 (0.1-1.2) X10*3/uL Eos # (Auto) 0.2 (0.0-0.4) X10*3/uL Baso # (Auto) 0.0 (0.0-0.2) X10*3/uL Abs Immat Gran (auto) 0.03 (0.00-0.03) X10*3/uL Absolute Neuts (auto) 8.6 H (2.0-8.3) x10*3/uL Absolute Nucleated RBC 0.000 (0.0-0.012) X10*3/uL Nucleated RBC % (auto) 0.0 (0.0-0.2) /100WBC Sodium 140 (135-145) mmol/L Potassium 6.7 H* D (3.3-5.1) mmol/L Chloride 106 (96-108) mmol/L Carbon Dioxide 21 L (22-29) mmol/L Anion Gap 20 (12-20) BUN 70 H (9-16) mg/dL Creatinine 4.65 H* (0.5-1.4) mg/dL Estim Creat Clear Calc 9.9 Estimated GFR 9 Random Glucose 239 H (60-115) mg/dL Calcium 9.2 D (8.4-10.2) mg/dL Magnesium 2.3 (1.6-2.6) mg/dL Total Bilirubin 0.4 (0.0-1.0) mg/dL Direct Bilirubin < 0.2 (0.0-0.5) mg/dL AST 11 (5-31) U/L ALT 8 (0-31) U/L Alkaline Phosphatase 172 H (39-117) U/L Total Protein 8.2 H (6.5-8.0) g/dL Albumin 4.0 (3.5-5.0) g/dL Lipase 22 (8-78) U/L Urine Color Urine Appearance Urine pH (5.0-9.0) Ur Specific [place] (1.005-1.025) Urine Protein (Neg-Trace) mg/dL Urine Glucose (UA) (Negative) mg/dL Urine Ketones (Negative) mg/dL Urine Blood (Negative) Urine Nitrite (Negative) Ur Leukocyte Esterase (Negative) Urine RBC (0-2) /HPF Urine WBC (0-5) /HPF Ur Squamous Epith Cells (0-2) /HPF Urine Bacteria (None Seen) Hyaline Casts (0-2) /LPF Influenza Type A (PCR) NEGATIVE (Negative) Influenza Type B (PCR) NEGATIVE (Negative) RSV RNA Qual (PCR) NEGATIVE (Negative) SARS-CoV-2 RNA (RT-PCR) NEGATIVE (Negative) 10/14/22 10/14/22 Range/Units 13:38 15:51 WBC (4.8-10.8) X10*3/uL RBC (4.20-5.50) X10*6/uL Hgb (12.0-16.0) g/dl Hct (37.0-47.0) % MCV (80.0-98.0) fL MCH (27.0-33.0) pg MCHC (31.0-35.0) g/dl RDW (11.0-16.0) % Plt Count (160-400) X10*3/uL MPV (9.4-12.3) fL Immature Gran % (Auto) (0.0-0.4) % Neut % (Auto) (45-73) % Lymph % (Auto) (20-40) % [place] % (Auto) (2-11) % Eos % (Auto) (0-4) % Baso % (Auto) (0-2) % Lymph # (Auto) (1.2-4.9) X10*3/uL [place] # (Auto) (0.1-1.2) X10*3/uL Eos # (Auto) (0.0-0.4) X10*3/uL Baso # (Auto) (0.0-0.2) X10*3/uL Abs Immat Gran (auto) (0.00-0.03) X10*3/uL Absolute Neuts (auto) (2.0-8.3) x10*3/uL Absolute Nucleated RBC (0.0-0.012) X10*3/uL Nucleated RBC % (auto) (0.0-0.2) /100WBC Sodium 141 (135-145) mmol/L Potassium 6.2 H* (3.3-5.1) mmol/L Chloride 107 (96-108) mmol/L Carbon Dioxide 22 (22-29) mmol/L Anion Gap 18 (12-20) BUN 69 H (9-16) mg/dL Creatinine 4.47 H* (0.5-1.4) mg/dL Estim Creat Clear Calc 10.3 Estimated GFR 10 Random Glucose 200 H (60-115) mg/dL Calcium 9.3 (8.4-10.2) mg/dL Magnesium (1.6-2.6) mg/dL Total Bilirubin (0.0-1.0) mg/dL Direct Bilirubin (0.0-0.5) mg/dL AST (5-31) U/L ALT (0-31) U/L Alkaline Phosphatase (39-117) U/L Total Protein (6.5-8.0) g/dL Albumin (3.5-5.0) g/dL Lipase (8-78) U/L Urine Color Yellow Urine Appearance Cloudy Urine pH >= 9.0 (5.0-9.0) Ur Specific [place] 1.015 (1.005-1.025) Urine Protein 300 (3+) H (Neg-Trace) mg/dL Urine Glucose (UA) Negative (Negative) mg/dL Urine Ketones Negative (Negative) mg/dL Urine Blood Negative (Negative) Urine Nitrite Negative (Negative) Ur Leukocyte Esterase Moderate (2+) H (Negative) Urine RBC 0-2 (0-2) /HPF Urine WBC >50 H (0-5) /HPF Ur Squamous Epith Cells 0-2 (0-2) /HPF Urine Bacteria 4+ (None Seen) Hyaline Casts 0-2 (0-2) /LPF Influenza Type A (PCR) (Negative) Influenza Type B (PCR) (Negative) RSV RNA Qual (PCR) (Negative) SARS-CoV-2 RNA (RT-PCR) (Negative) Independent Interpretation I performed an independent interpretation of an: EKG (My interpretation normal sinus rhythm at a rate of 70. LVH. Wide complex. No STEMI. LBBB resolved when compared to prior) Radiology Impression Discussion of test interpretation with radiology: I have reviewed the radiologist's reading. External Record Review External record reviewed: Inpatient record and Prior outpatient labs Critical Care Time Critical Care Time Critical Care Time: Yes Total Critical Care Time: 45 Attestation: I have personally provided critical care time exclusive of time spent on separately billable procedures. Time includes review of lab data, radiology results, discussion with consultants, and monitoring for potential decompens ation. Intervention performed as documented. Discharge Plan Discharge Clinical Impression: Acute UTI, Acute kidney injury superimposed on CKD, Acute hyperkalemia Patient Disposition: Admitted As Inpatient
[2022-10-14 12:28] VITALS: BP 95/72; PULSE 68; RESP 18; TEMP 36.6; O2SAT 97
[2022-10-14 12:40] LABS: Basophils Percent Auto 0.3 % (0-2); Eosinophils Absolute Auto 0.2 X10*3/uL (0.0-0.4); Eosinophils Percent Auto 1.8 % (0-4); Hematocrit 35.6 % (37.0-47.0); Imm Gran Abs Auto 0.03 X10*3/uL (0.00-0.03); Imm Gran Pct Auto 0.3 % (0.0-0.4); Lymphocytes Absolute Auto 1.7 X10*3/uL (1.2-4.9); Lymphocytes Percent Auto 15.1 % (20-40); MANUAL DIFF FLAG NO; Mean Corpuscular HGB Conc 30.9 g/dl (31.0-35.0); Mean Corpuscular Hemoglobin 25.8 pg (27.0-33.0); Mean Corpuscular Volume 83.6 fL (80.0-98.0); Mean Platelet Volume 10.2 fL (9.4-12.3); Monocytes Absolute Auto 0.6 X10*3/uL (0.1-1.2); Monocytes Percent Auto 5.7 % (2-11); Neutrophils Absolute Auto 8.6 x10*3/uL (2.0-8.3); Neutrophils Percent Auto 76.8 % (45-73); Platelet Count 265 X10*3/uL (160-400); Red Blood Count 4.26 X10*6/uL (4.20-5.50); Red Cell Distribution Width 14.5 % (11.0-16.0); White Blood Count 11.1 X10*3/uL (4.8-10.8)
--- OUTSIDE RECORDS SUMMARY | 2022-10-14 13:02 | XMS_ITS ---
:1955 Author Care Team Providers Name Role Phone DENYS SANDERS MD Primary Care Provider [phone] [facility] - 2ND FLOOR OTHER [phone] LUAN MAHAJAN MD OTHER [phone] LUKAS GRIGGS MD OTHER [phone] MYESHA FREY MD OTHER [phone] Allergies Code Code System Name Reaction Severity Status Onset [id number] RxNorm Latex Rash ? Active ? Medications Name Status Start Date Stop Date ? ? oxycodone 5 mg tablet Active ? Not availa ble 1 po q 6 h prn mod-severe pain Notes: meds reviewed; see MAR for deta ils Problems Name Status Onset Date Source ? Renal Disorder Due to Type 2 Diabetes Mellitus Active 1 11/23/2021 ? Gastroparesis Due to Type 2 Diabetes Mellitus Active ? Dyslipidemia Active 09/22/2022 ? Hypomagnesemia Active 09/22/2022 ? Metabolic Acidosis Active 09/22/2022 ? Chronic Hyperkalemia Active 09/22/2022 ? Anemia in Chronic Kidney Disease Active 09/22/2022 ? Depressive Disorder Active 09/22/2022 ? Obstructive Sleep Apnea Syndrome Active 09/22/2022 ? Acute non-ST Segment Elevation Myocardial Infarction Active 09/22/2022 ? Cardiomyopathy Active 09/22/2022 ? Chronic Systolic Heart Failure Active 09/22/2022 ? Diastolic Dysfunction Active 09/22/2022 ? Chronic Hypoxemic Respiratory Failure Active 09/22/2022 ? Gastroesophageal Reflux Disease without Esophagitis Active 09/22/2022 ? Gastritis Active 09/22/2022 ? Irritable Bowel Syndrome Active 09/22/2022 ? Chronic Kidney Disease Stage 5 Active 09/22/2022 ? Uterine Prolapse Active 09/22/2022 ? Degeneration of Cervical Intervertebral Disc Active ? Edema of Lower Extremity Active 09/22/2022 ? Esophageal Dysphagia Active 09/22/2022 ? Functional Urinary Incontinence Active 09/22/2022 ? History of Cerebrovascular Accident Active 09/22/2022 ? Amputation of Finger of Left Hand Active 09/22/2022 ? Osteomyelitis of Finger of Left Hand Active 09/22/2022 ? Peripheral Neuropathy Due to Type 2 Diabetes Mellitus Active 09/22/2022 ? Nonproliferative Retinopathy Due to Type 2 Diabetes Mellitus Act juanis 09/22/2022 ? Type 2 Diabetes Mellitus with Peripheral Angiopathy Active 09/22/2022 ? Insomnia Co-occurrent and Due to Medical Condition Active 09/22/2022 ? Bilateral Subclavian Artery Stenosis Active 09/22/2022 ? Functional Fecal Incontinence Active 09/22/2022 ? Procedures None recorded. Results Lab Results None recorded. Past Encounters Encounter Date Diagnosis Provider 10/11/2022 EZEQUIEL Kennedy: [address], [place], [place] [address], Ph. 10/10/2022 EZEUQIEL Kennedy: [address], [place] [address], Ph. [phone] 09/28/2022 Acute non-ST Segment Elevation Jocelin Chowdhury MD: [address] Myocardial Infarction; Chronic [address] , [place] [address], Ph. Disease Stage 5; History of [phone] Cerebrovascular Accident; Type 2 Diabetes Mellitus with Peripheral Angiopathy; Mixed Anxiety and Depressive Disorder; Essential Hypertension; Asthenia 09/22/2022 Acute non-ST Segment Elevation Dinorah Velasquez PA-C: [address]; Osteomyelitis [address], [place], [place] of Finger of Left Hand; [place] [id number], Ph. Chronic Kidney Disease; Chronic Kidney Disease Stage 5; Metabolic Acidosis; Chronic Hyperkalemia; Chronic Hypoxemic Respiratory Failure; Chronic Systolic Heart Failure; Diastolic Dysfunction; Type 2 Diabetes Mellitus with Peripheral Angiopathy; Hypomagnesemia; History of Cerebrovascular Accident; Gastroesophageal Reflux Disease without Esophagitis; Gastritis; Esophageal Dysphagia; Edema of Lower Extremity; Dyslipidemia; Degeneration of Cervical Intervertebral Disc; Cardiomyopathy; Bilateral Subclavian Artery Stenosis; Irritable Bowel Syndrome; Insomnia Co-occurrent and Due to Medical Condition; Obstructive Sleep Apnea Syndrome; Uterine Prolapse; Depressive Disorder; Functional Urinary Incontinence; Functional Fecal Incontinence; At Risk for Falls Social History Tobacco Smoking Status Former Smoker Vaccine List Vaccine Type COVID-19 vaccine, vector-nr, [id number], PF , 0.5 mL ([employer]) 12/16/2020 COVID-19, mRNA, LNP-S, bivalent booster, PF, 30 mcg/0.3 mL dose ([employer]) 08/12/2022 COVID-19, mRNA, LNP-S, PF, 50 mcg/0.5 mL dose ([employer]) 05/26/2022 Plan of Care Reminders Provider Appointments None recorded. ? ? Lab None recorded. ? ? Referral None recorded. ? ? Procedures None recorded. ? ? Surgeries None recorded. ? ? Imaging None recorded. ? ? Vitals 09/28/2022 05:23AM Admitting H&P Height Blood Pressure 4 ft 9.8 in 133/66 mm[Hg] 09/22/2022 01:28PM Initial Intake Note Height Weight BMI Blood Pressure 4 ft 9.8 in 171.6 lbs 36.1 kg/m2 128/67 mm[Hg]
--- OUTSIDE RECORDS SUMMARY | 2022-10-14 13:02 | XMS_ITS | Encounter Summary ---
:1955 Author Care Team Providers Name Role Phone Alexys Avila MD Primary Care Provider [phone] - [address] Floor OTHER [phone] Mikey Pang MD OTHER [phone] Toya Panchal MD OTHER [phone] Andrea Vides MD OTHER [phone] Reason for Visit Initial Intake Assessment and Plan 1. Acute non-ST segment elevation myoca rdial infarction Medically optimized f/u prn 2. Osteomyelitis of finger of left hand s/p partial amp Needs hand surgeon f/u with Dr. Toya Panchal 1 week Script for oxycodone IR 5 mg #60 and up to #8 from e-kit submitted electronically to pharmacy 3. Anemia in chronic kidney disease Recommended for ongoing Procrit -clarify with renal to see if this will be done through facility or if pt will receive during potential renal replacement therapy Follow CBC 4. Chronic kidney disease stage 5 Needs renal f/u with Dr Mikey Pang 1 week Reportedly planning for renal replacemen t therapy 5. Metabolic acidosis secondary to CKD NaHCO3 6. Chronic hyperkalemia secondary to CKD off kayexalate due to diarrhea -follow divalents -was getting 15 g daily - may need to re sume but less frequently -may do better with Lokelma 7. Chronic hypoxemic respiratory failur e O2-dependent Has prn Dora 8. Chronic systolic heart failure Compensated On Lasix Watch divalents, renal function, and Mg Follow clinically 9. Diastolic dysfunction Compensated Avoid tachycardia 10. 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 Hypomagnesemia Repleting Risk of hypermag from worsening CKD Follow labs 12. History of cerebrovascular accident Statin, ASA 13. Gastroesophageal reflux disease wit hout esophagitis Clarify H2-kain dosing given CKD V a s seems inappropriate Hx PPI -perhaps not on due to hypomag? Gastritis and duodenitis on EGD suggest should be on PPI Follow clinically 14. Gastritis as above 15. 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 Edema of lower extremity No evidence of volume overload on exam Is on Norvasc On Lasix -watch divalents, renal function, and Mg 17. Dyslipidemia statin 18. Degeneration of cervical interverte bral disc prn APAP PT/OT prn f/u prn 19. Cardiomyopathy medical optimized 20. 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 Nicole Rose at [facility]) 21. Irritable bowel syndrome Supportive care f/u prn 22. Insomnia co-occurrent and due to me dical condition Trazodone 23. Obstructive sleep apnea syndrome not on CPAP/BiPAP Follow clinically 24. Uterine prolapse Outpatient f/u with informatics physician liaison prn 25. Depressive disorder Denies SI/HI/AH/VH On Zoloft -no hyponatremia 26. Functional urinary incontinence Consider toileting schedule 27. Functional fecal incontinence Consider toileting schedule 28. At risk for falls PT/OT Discussion Note Dispo -- likely will transition to LTC Patient educational handouts: No information available. Plan of Care Reminders Provider Appointments None recorded. ? ? Lab None recorded. ? ? Referral None recorded. ? ? Procedures None recorded. ? ? Surgeries None recorded. ? ? Imaging None recorded. ? ? Medications Name Start Date ? ? oxycodone 5 mg tablet ? 1 po q 6 h prn mod-severe pain Notes: meds reviewed; see NICOLE for deta ils Medications Administered None recorded. Vitals Height Weight BMI Blood Pressure 4 ft 9.8 in 171.6 lbs 36.1 kg/m2 128/67 mm[Hg] Results Lab Results None recorded. Allergies Code Code System Name Reaction Severity Onset 7329006 RxNorm Latex Rash ? ? Problems Name Status Onset Date Source ? [...] Incontinence Active 09/22/2022 ? Procedures None recorded. Vaccine List Vaccine Type COVID-19 vaccine, vector-nr, rS-Ad26, PF , 0.5 mL (Audra) 12/16/2020 COVID-19, mRNA, LNP-S, bivalent booster, PF, 30 mcg/0.3 mL dose ([employer]) 08/12/2022 COVID-19, mRNA, LNP-S, PF, 50 mcg/0.5 mL dose (Moderna) 05/26/2022 Social History Tobacco Smoking Status Former Smoker What is your level of alcohol None consumption? Has tobacco cessation counseling N Notes: N/A been provided? What is your code status? 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 What was the date of your most 09/22/2022 recent tobacco screening? Do you have an advance directive? Y Notes : full code; ok for dialysis; no artific ial nutrition; ok for artificial hy dration Legal Guardian? N Do you have an out of hospital DNR? N Do you or have you ever used any N other forms of tobacco or nicotine? Do you use any illicit or N recreational drugs? Family History Relation Problem Onset Age of Age Notes Father Malignant tumor of lung (No Information) N/A (No Notes) Mother Type 2 diabetes mellitus (No Information) N/A (No Notes) Mother Coronary arteriosclerosis (No Information) N/A (No Notes) Sister Coronary arteriosclerosis (No Information) N/A (No Notes) Sister Type 2 diabetes mellitus (No Information) N/A (No Notes) Brother Coronary arteriosclerosis (No Information) N/A (No Notes) Son Type 2 diabetes mellitus (No Information) N/A (No Notes) Daughter Type 2 diabetes mellitus (No Information) N/A (No Notes) Functional Status Unknown. Past Encounters Encounter Date Diagnosis Provider 09/22/2022 Acute non-ST Segment Elevation Dinorah Velasquez PA-C: 282 Myocardial Infarction; Osteomyelitis [place], [place] Finger [place]; [place] [id number], Ph. Chronic Kidney Disease; Chronic Kidney [...] Functional Fecal Incontinence; At Risk for Falls History of Present Illness Note: Pt seen today for initial review. Seen with Sp-speaking VERONIQUE. 67-y/o F admitted from [facility] where she was hospitalized 09/14- 09/22/22 for acute NSTEMI. Was initially sent to the ED for eval of necrotic L 2nd finger. Dx cellulitis L hand with necrosis of fingertip and bone protruding at the tip. Started on Vanc/Zosyn. Imaging negative for osteo but inflammatory markers elevated. Seen by hand surgeon and required amputation at level of PIP. Cardiac work-up undertaken due to pt's report of vomiting and feeling out of it the evening prior to presentation. Enzymes were elevated and she was started on Heparin gtt for ACS. Seen by cards and deemed not a candidate for intervention given significant comorbidities. Transfused 2 ux PRBCs for qswmj-cq-exvagez anemia. Stool guaiacs neg. Seen by GI - underwent EGD, which demonstrated gastritis/duodenitis. Seen by renal for anemia of CKD - given Procrit and IV iron and plans made for renal replacement therapy. Had diarrhea that was attributed to kayexalate administration for hyperkalemia. Prn oxycodone added for post-op pain control and there were otherwise no med changes. Here for subacute rehab with possible plan to return to the community. Parenterals Received Prior to Admit: IV Vanc/Zosyn 09/14-09/20/22; Heparin infusion 09/14-09/16/22;Blood transfusion 2 ux PRBCs 09/15/22; Iron infusion 09/21-09/22/22. PMHx: Acute NSTEMI 09/2022; L 2nd finger partial amp secondary to osteomyelitis 09/2022; Anemia of CKD; Hx blood transfusion; CKD V with chronic metabolic acidosis and hyperkalemia; Grade 2 diastolic dysfunction; DM2 with nephropathy, neuropathy, gastroparesis, non-proliferative retinopathy, and PVD;Prior amp R 2nd and 3rd fingers and L distal 3rd finger; HFrEF; Hx CVA; Dyslipidemia; Gastritis/Duodenitis; Hx esophageal dilation; Hypomagnesemia; Insomnia; Mod- severe pulmonary HTN; Hx L BKA; Depression; Hx UTI; GERD; Nonischemic cardiomyopathy; IBS; Chronic hypoxic respiratory failure/chronic lung disease, O2-dependent; Pharoesophageal-phase dysphagia; Hx laser photocoagulation 2018; Hernia; LBBB;Hx cholecystectomy; LEENA; Uterine prolapse; Hx tobacco use d/o; Bilateral subclavian stenosis withoutsubclavian steal syndrome; Cervical DDD; RLE edema; Functional urinary incontinence; Functional fecal incontinence Healthcare Maintenance: given comorbidities and life expectancy, routine screening would not be recommended PPI use: not on a PPI Meds: Oxycodone IR 5 mg po q 6 h prn mod-severe pain (new) Lasix 40 mg po bid Coreg 6.25 mg po bid Lipitor 80 mg po qhs Trazodone 50 g po qhs Plavix 75 mg po daily ASA 81 mg po daily Mag oxide 400 mg po bid Zoloft 50 mg po daily Ca+D 600- 400 po bid Lantus 18 ux SQ daily Norvasc 10 mg po daily Pepcid 40 g po bid NaHCO3 650 mg po bid Duoneb q 4 h prn wheeze Correctional Humalog (Kayexalate 15 g po daily d/c'd) Diet: 2g Na, reg texture, thin liquids Mobility: w/c Continence: occasionally incontinent of bowel and bladder Feeding: independent at baseline, currently needs assist ROS: No significant pain. Feels constipated. No recent diarrheaReview of Systems: ROS as noted in the HPI Review of Systems None recorded. Physical Exam ? Notes: General: in bed in NAD; ryan ears comfortable; breathing non-labored Skin: p/w/d without jaundice/pallor HEENT: pink and moist mucous membranes; no icterus; nasal cannula in situ Neck: supple without thyromegaly/adenopathy Lungs: CTA without wheezes/ rales/rhonchi Heart: RRR without M Abd: soft, NT, ND with normoactive BS Ext: L BKA; L hand dressing clean, dry, intact; R hand with surgical absent 2nd and 3rd fingers; 1+ RLE edema Recent Labs/Diagnostics: [place]09/22/22 [place] [facility] [place] CBC: 15.7/7.8/24.1/?; Speedy Hgb 6.9 lytes, BUN/Cr glu: 141/4.2/105/23, 51/4.01, 133 Ca 7.9 Random Vanc 18.5 IgG 1418 IgA 222 IgM 151 Trop 335, 405 BUE arterial duplex negative X-ray L hand no osteo ESR 121; CRP 6 (units unk) Blood cx x 2 NG EKG no acute changes; LBBB Echo: EF 32%; mod-severe pulm HTN; moderate global hypokinesis; Grade 2 diastolic dysfunction; mild-mid aortic stenosis; mild mitral regurg U/A: positive Stool guaiac neg EGD: gastritis/duodenitis F del neg RSV neg SARS-CoV-2 neg Stool c-diff neg Stool WBCs neg; stool for extensive microbes negative L 2nd finger culture NG Ferritin 300
--- OUTSIDE RECORDS SUMMARY | 2022-10-14 13:02 | XMS_ITS | Encounter Summary ---
:1955 Author Care Team Providers Name Role Phone Alexys Avila MD Primary Care Provider [phone] [place] - [address] Floor OTHER [phone] Mikey Pang MD OTHER [phone] Toya Panchal MD OTHER [phone] Andrea Vides MD OTHER [phone] Reason for Visit Admitting H&P admission history and physical examinati on Assessment and Plan 1. Acute non-ST segment elevation myoca rdial infarction clopidogrel 75 mg daily ASA 81 mg daily atorvastatin 80 mg daily carvedilol 6.25 mg bid will monitor fu cardiology 2. Chronic kidney disease stage 5 recent acute on chronic advanced kidney disease fu nephrology for Procrit and ongoing ma nagement - sodium bicarb 650 mg bid will monitor 3. History of cerebrovascular accident ASA 81 mg daily atorvastatin 80 mg daily will monitor 4. Type 2 diabetes mellitus with periph eral angiopathy s/p recent left index amputation at mid dle phalanx: oxycodone 5 mg q6h prn APAP 650 mg q4h prn fu ortho for DM: Humalog per sliding scale Insulin glargine 18U daily will monitor 5. Mixed anxiety and depressive disorde r trazodone 50 mg at hs will monitor 6. Essential hypertension amlodipine 10 mg daily furosemide 40 mg bid will monitor 7. 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 Plan of [...] meds reviewed; see MAR for deta ils Medications Administered None recorded. Vitals Height Blood Pressure 4 ft 9.8 in 133/66 mm[Hg] Results Lab Results None recorded. Allergies Code Code System Name Reaction Severity Onset 2789243 RxNorm Latex Rash ? ? Problems Name [...] vaccine, vector-nr, rS-Ad26, PF , 0.5 mL ([employer]) 12/16/2020 COVID-19, mRNA, LNP-S, bivalent booster, PF, 30 mcg/0.3 mL dose (Pfizer-BioNTech) 08/12/2022 COVID-19, mRNA, LNP-S, PF, 50 mcg/0.5 mL dose (Moderna) 05/26/2022 Social History Tobacco Smoking Status Former Smoker What is your level of alcohol None consumption? Has tobacco cessation counseling N Notes: N/A been provided? What is your code status? 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 What was the date of your most [...] Unknown. Past Encounters Encounter Date Diagnosis Provider 09/28/2022 Acute non-ST Segment Elevation Jocelin Chowdhury MD: [address] [place] [place] Myocardial Infarction; [place] [address], Ph. Disease Stage 5; History of [phone] Cerebrovascular Accident; Type 2 Diabetes Mellitus with Peripheral Angiopathy; Mixed Anxiety and Depressive Disorder; Essential Hypertension; Asthenia 09/22/2022 Acute non-ST Segment Elevation Dinorah Velasquez PA-C: 282 Myocardial Infarction; Osteomyelitis [place] Finger [place]; [place] [address], Ph. Chronic Kidney Disease; Chronic Kidney [...] for Falls History of Present Illness Note: This 67 year old woman was admitted to [facility] on 09/22/22 for rehab and continued care. Medical history is remarkable for advanced CKD, DM, hypertension CHF, CAD, history of CVA, anemia, hyperlipidemia, history amputation right index and middle finger amputation due to necrosis Patient [facility] due to infection of left index finger. Family noticed at visit and was concerned. Patient reported redness and pain for 2 days. On examination left index had necrotic area at tip of finger. There was erythema and warmth throughout index finger into dorsum of hand. There appeared to have been prior amputation of distal phalanx. T was 100.4, RR 22, pulse 102. WBC 15.7, hemoglobin 7.8, cr 3.87, troponin 335, which increased to 405. UA was reported as positive . Hand xray showed no radiographic evidence of osteomyelitis. Patient was initially treated with IV vancomycin and Zosyn; She was taken to OR on 09/29/22. I&D of bone and soft tissue of left index finger performed as well as middle phalanx level amputation of left index. Antibiotics were stopped when wound cultures and BC neg x 48 hours. Duplex doppler was done of upper extremity arteries and there was no evidence of any hemodynamically significant upper extremity arterial disease found. She was diagnosed with NSTEMI, given significant elevation in troponin and no EKG changes. She was treated with IV heparin. x 48 hours and deemed not a candidate for cardiac catheterization due to multiple comorbidities. ASA, statins beta blockers recommended. ECHO was done on 09/15/22 and showed LV s ystolic function moderately decreased with EF 32%; mild to mod , mild mitral annular calcificationwith mild MVR; mod to severe pulmonary hypertension. Patient received 2U PRBCs; EGD was done showing gastritis/duodenitis, guaiac negative stools. She also received IV iron and was given Procrit per nephrology and outpatient fu with nephrology recommended for continued Procrit. Patient has some diarrhea which resolved. C Dff and stool WBC testes were negative and diarrhea thought possibly secondary to Kayexalate use and it was discontinued. Follow up with orthopedics, nephrology, and cardiology recommended as outpatient. Advanced directives: no signed MOLST seen in [facility] records at this time.Review of Systems: ROS as noted in the HPI Review of Systems ? Notes: All others reviewed and neg ative unless otherwise stated in the HPI. Physical Exam ? General Adult Exam Reported By: Patient Constitutional: General Appearance: healthy- appearing, well-nourished. Level of Distress: NAD. Ambulation: ; sitting in chair at time of visit Head: Head: normocephalic, atrauma tic Eyes: Lids and Conjunctivae: non-i njected. EOM: EOMI Neck: Neck: supple Lungs: Auscultation: decreased susanne th sounds Cardiovascular: Heart Auscultation: RRR Musculoskeletal:: Joints, Bones, and Muscles ; left hand bandaged Notes: 09/14-09/22/22 @ [facility] [place]: CBC: 15.7/7.8/24.1/?; Speedy Hgb 6.9 lytes, BUN/Cr glu: 141/4.2/105/23, 51/4.01, 133 Ca 7.9 Random Vanc 18.5 IgG 1418 IgA 222 IgM 151 Tro p 335, 405 BUE arterial duplex negative X-ray L hand no osteo ESR 12 1; CRP 6 (units unk) Blood cx x 2 NG EKG no acute changes; LBBB E cho: EF 32%; mod-severe pulm HTN; moderate global hypokinesis; Grade 2 diastolic dysfunction; mild-mid aortic stenosis; mi ld mitral regurg U/A: positive Stool guaiac neg EGD: gastritis/du odenitis Flu neg RSV neg SARS-CoV-2 neg Stool c-diff neg Stool WBCs neg; stool for extensive microbes negative L 2nd finger cultur e NG Ferritin 300
[2022-10-14 13:03] LABS: Alanine Aminotransferase 8 U/L (0-31); Alkaline Phosphatase 172 U/L (39-117); Aspartate Amino Transferase 11 U/L (5-31); Bilirubin Direct < 0.2 mg/dL (0.0-0.5); Bilirubin Total 0.4 mg/dL (0.0-1.0); Calcium 9.2 mg/dL (8.4-10.2); Glucose Random 239 mg/dL (60-115); Lipase 22 U/L (8-78); Magnesium 2.3 mg/dL (1.6-2.6); Total Protein 8.2 g/dL (6.5-8.0)
[2022-10-14 13:17] LABS: Anion Gap 20 (12-20); Blood Urea Nitrogen 70 mg/dL (9-16); Carbon Dioxide 21 mmol/L (22-29); Chloride 106 mmol/L (96-108); Creatinine Clr Calc Pharmacy 9.9; Estimated Glomerular Filt Rate 9; Potassium 6.7 mmol/L (3.3-5.1); Sodium 140 mmol/L (135-145)
[2022-10-14 13:20] LABS: Influenza A PCR NEGATIVE (Negative); Influenza B PCR NEGATIVE (Negative); Resp Syncy Virus RNA Qual PCR NEGATIVE (Negative); SARS COV2 PCR INHOUSE NEGATIVE (Negative)
--- NOTE | 2022-10-14 13:26 | ECG_ITS ---
Test Reason : Hyperkalemia Blood Pressure : / mmHG Vent. Rate : 070 BPM Atrial Rate : 070 BPM P-R Int : 182 ms QRS Dur : 140 ms QT Int : 466 ms P-R-T Axes : 054 -02 220 degrees QTc Int : 503 ms Normal sinus rhythm Left ventricular hypertrophy with QRS widening and repolarization abnormality ( [place] product ) Abnormal ECG When compared with ECG of 14-SEP-2022 21:50, Premature ventricular complexes are no longer Present Left bundle branch block is no longer Present Referred By: Rhianna Mckinnon Electronically Signed By:Nik Lou
[2022-10-14] MEDS: 0.9 % Sodium Chloride 500 ML 999 ML IV ×2 (13:28→14:14)
[2022-10-14 13:46] LABS: Appearance Urine Cloudy; Color Urine Yellow; Glucose Urine UA Negative (Negative); Leukocyte Esterase Urine Moderate (2+) (Negative); Nitrite Urine Negative (Negative); PH >= 9.0 (5.0-9.0); Specific Gravity - Urine 1.015 (1.005-1.025); UMIC TRIGGER UACC YES; Urine Blood Negative (Negative); Urine Ketones Negative (Negative); Urine Protein 300 (3+) mg/dL (Neg-Trace)
[2022-10-14 13:51] LABS: Bacteria Urine 4+ (None Seen); Hyaline Casts Urine 0-2 /LPF (0-2); RBC Urine 0-2 /HPF (0-2); Squamous Epithelial Cell Urine 0-2 /HPF (0-2); UACC Culture Trigger YES; WBC Urine >50 /HPF (0-5)
[2022-10-14] MEDS: Insulin Regular, Human 100 UNIT/ML 3 ML VIAL 10 UNIT IVPUSH ×2 (14:12→16:50)
[2022-10-14] MEDS: Calcium Gluconate/NaCl,Iso-Osm 1 GM/50 ML PLAST..BAG IV (14:12)
[2022-10-14] MEDS: Dextrose 50 % 25 GM/50 ML SYRINGE IVPUSH ×2 (14:12→16:50)
[2022-10-14] MEDS: Sodium Zirconium Cyclosilicate 10 GM POWD.PACK PO ×2 (14:14→16:50)
--- NOTE | 2022-10-14 14:37 | PC.NURSE ---
pt has multiple other ivs infusing at this time, pt requesting to just have the one iv at this time. will run abx following previous infusions.
[2022-10-14] MEDS: cefTRIAXone sodium 1 GM in 0.9 % Sodium Chloride 50 ML IV (15:20)
[2022-10-14 16:17] VITALS: BP 124/45; PULSE 71; RESP 16; TEMP 36.8; O2SAT 97
[2022-10-14 16:31] LABS: Anion Gap 18 (12-20); Blood Urea Nitrogen 69 mg/dL (9-16); Calcium 9.3 mg/dL (8.4-10.2); Carbon Dioxide 22 mmol/L (22-29); Chloride 107 mmol/L (96-108); Creatinine Clr Calc Pharmacy 10.3; Estimated Glomerular Filt Rate 10; Glucose Random 200 mg/dL (60-115); Potassium 6.2 mmol/L (3.3-5.1); Sodium 141 mmol/L (135-145)
[2022-10-14] MEDS: Albuterol Sulfate 7.5 MG, Albuterol Sulfate (0.083%) 2.5 MG 10 MG INHALE (16:55)
[2022-10-14 16:57] VITALS: PULSE 76; RESP 17; O2SAT 97
[2022-10-14 20:28] VITALS: BP 122/52; PULSE 84; RESP 18; TEMP 36.8; O2SAT 97
[2022-10-14 20:39] LABS: Anion Gap 17 (12-20); Blood Urea Nitrogen 65 mg/dL (9-16); Calcium 8.9 mg/dL (8.4-10.2); Carbon Dioxide 21 mmol/L (22-29); Chloride 107 mmol/L (96-108); Creatinine Clr Calc Pharmacy 9.8; Estimated Glomerular Filt Rate 9; Glucose Random 235 mg/dL (60-115); Potassium 5.4 mmol/L (3.3-5.1); Sodium 140 mmol/L (135-145)
--- NOTE | 2022-10-14 20:41 | PC.NURSE ---
this rn notified dr perera of critical creatinine 4.71 and potassium 5.4. no new orders at this time
--- NOTE | 2022-10-14 20:45 | PHA.MEDREC ---
Addendum entered by Myke Norris 10/15/22 09:30: Med list faxed today from Shauna at [facility]. Original Note: Pharmacy Consult ? Medication Reconciliation Pharmacy has completed the medication reconciliation. Med list via verbal phone call from [facility] [phone]
--- NOTE | 2022-10-14 21:27 | P.HPHOSP_ITS ---
History of Present Illness Date of Service: 10/14/22 Chief Complaint: Nausea, vomiting 67-year-old female with past medical history of CKD stage 5, CHF, diabetes, GERD, HLD, HTN CAD, and type 2 diabetes presents to the hospital with nausea vomiting as well as her daughter being worried that her labs may be abnormal due to her history of hyperkalemia. Symptoms started 3 days ago, she has severe nausea vomiting and intolerance to Po intake. Reports multiple episodes of diarrhea, that have improved today but reports no abdominal pain, reports no fever, has chills chronically, reports no shortness of breath, no cough, no orthopnea PND, no lower extremity edema. Denies any urinary symptoms. while in the ED patient was given Gross's by her daughter, I noticed that the patient was coughing every time she took a by, when asked her daughter about any difficulty swallowing daughter reports that she does cough and chokes on her food. Patient reports that she has had swallow studies in the past but when I looked into the system there is no evidence of speech studies in the past. on arrival to the ED patient hemodynamically stable Labs are significant for WBC count of 11.1, hemoglobin of 11, hematocrit 35.6 , potassium of 6.7, creatinine of 4.65 which increased from for and 3.86 previously respectively, UA positive for leukocyte Estrace and WBC, Abdomen pelvic CT shows moderate to large stool content in the colon and rectum with rectal wall thickening but no significant perirectal fat stranding, gastroparesis, Chest x-ray shows diffuse interstitial patchy does not perihilar all prominence increased compared to previous study, suggestive of atypical / viral infection patient given multiple lactic a stark for the hyperkalemia, with improvement and will be admitted for further management Review of Systems Review of Systems: Yes all other systems are reviewed and are negative [facility] Medical History Acute on chronic renal failure Acute worsening of stage 4 chronic kidney disease Anemia Blister of finger without infection Cardiomyopathy Cholecystectomy planned Chronic heart failure with preserved ejection fraction (HFpEF) Chronic kidney failure CKD (chronic kidney disease) CKD (chronic kidney disease) stage 3, GFR 30-59 ml/min CKD (chronic kidney disease) stage 4, GFR 15-29 ml/min CKD (chronic kidney disease) stage 5, GFR less than 15 ml/min CKD (chronic kidney disease), stage IV Congestive heart failure Diabetes Diabetes mellitus Elevated d-dimer Elevated troponin Essential hypertension Gastroparesis Generalized weakness GERD (gastroesophageal reflux disease) Hand pain Hernia HLD (hyperlipidemia) HTN (hypertension) Hypomagnesemia Irritable bowel syndrome with diarrhea Lightheadedness Low blood pressure Non-ST elevated myocardial infarction Nonischemic cardiomyopathy Normocytic anemia Other and unspecified hyperlipidemia Pharyngoesophageal dysphagia Type 2 diabetes mellitus with unspecified complications UTI (urinary tract infection) Family History Father Lung cancer Mother Diabetes HTN (hypertension) Heart disease Sister Diabetes Heart disease Brother Heart disease Son Diabetes Daughter Diabetes Surgical History H/O: hysterectomy History of esophagogastroduodenoscopy (EGD) Hx of colonoscopy Hx of eye surgery Social History Household Members: Caregiver Household Members Other:: SNF Housing: [facility] Do you presently have visiting nurse or other home services: No Unable to assess alcohol history related to: Unknown Alcohol intake: never Patient Tobacco Use Status: Never used Tobacco Smoked in Last 30 Days: No Second Hand Smoke Exposure: No Use of substances other than those prescribed or required for medical reasons: No Have you been hit, kicked, punched, or otherwise hurt by someone within the past year? If so, by whom?: No Do you feel safe in your current relationship?: No Current Relationship Is there a partner from a previous relationship who is making you feel unsafe now?: No Are you made to feel afraid or neglected: No Advance Directives: Yes Advance Directives on File: Yes Advance Directives Date on File: 02/02/22 Do you have thoughts of harming others: None Do you have a plan to hurt others: No Plan Recently lost weight without trying: Unsure How much weight loss: Unsure Eating poorly because of decreased appetite: Yes Nutrition screen score: 5 Nutrition Risks: Difficulty swallowing Patient : No : No Poor oral hygiene: No service: No Current occupational status: disabled Meds Allergies Allergy/AdvReac Type Severity Reaction Status Date / Time latex [LATEX] Allergy Intermediate ITCHY Verified 10/11/22 11:59 Active Medications: Current Medications Lactated Ringer's (Lr) 1,000 mls @ 100 mls/hr IVCONT .Q10H MATTY Home Medications Medication Instructions Recorded Confirmed Last Taken Type aspirin 81 mg tablet,delayed 81 mg PO BEDTIME 06/20/21 10/14/22 10/14/22 History release atorvastatin 80 mg tablet 80 mg PO BEDTIME 06/20/21 10/14/22 10/13/22 History calcium carbonate 600 mg-vitamin 1 tab PO BID 06/20/21 10/14/22 10/14/22 History D3 10 mcg (400 unit) tablet clopidogrel 75 mg tablet 75 mg PO DAILY 06/20/21 10/14/22 10/13/22 History magnesium oxide 400 mg (241.3 mg 400 mg PO BID 06/20/21 10/14/22 10/14/22 History magnesium) tablet sertraline 50 mg tablet 50 mg PO DAILY 06/20/21 10/14/22 10/14/22 History trazodone 50 mg tablet 50 mg PO BEDTIME 06/20/21 10/14/22 10/13/22 History insulin glargine 100 unit/mL (3 18 unit subcut DAILY 03/25/22 10/14/22 10/14/22 History mL) subcutaneous pen (Lantus Solostar U-100 Insulin) ipratropium 0.5 mg-albuterol 3 mg 3 ml inhalation Q4H PRN Wheezing 05/05/22 10/14/22 Unknown History (2.5 mg base)/3 mL nebulization soln furosemide 40 mg tablet (Lasix) 40 mg PO BIDWM 10/14/22 10/14/22 10/14/22 History insulin lispro 100 unit/mL See Protocol subcut QIDACHS 10/14/22 10/14/22 10/14/22 History subcutaneous solution (Humalog U-100 Insulin) Physical Exam Vital Signs and Narrative: Vital Signs: Last Vital Signs Temp 98.3 F 10/14/22 20:28 Pulse 84 10/14/22 20:28 Resp 18 10/14/22 20:28 BP 122/52 L 10/14/22 20:28 Pulse Ox 97 10/14/22 20:28 O2 Del Method 10/14/22 20:28 BMI result Body Mass Index 32.6 Const: General: cooperative and no acute distress Orientatio n/consciousness: patient oriented x3 Eyes: General: appearance normal, both eyes and all related structures Resp: Effort & Inspection: normal respiratory effort Auscultation: clear to auscultation bilaterally Cardio: Rate: regular rate Rhythm: regular rhythm GI: Palpation (GI): Soft to palpation Auscultation: normal bowel sounds Skin: General skin exam: no rashes or lesions noted Neuro: General: patient oriented x3 Cognition (Neuro): normal cognition Extrem: Other: 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, stiches in place General: Yes no pedal edema Results Labs 10/14/22 12:35 10/14/22 20:12 Labs: Laboratory Results - last 24 hr 10/14/22 10/14/22 10/14/22 12:35 12:35 12:35 MCV 83.6 MCH 25.8 L MCHC 30.9 L RDW 14.5 Plt Count 265 D MPV 10.2 Immature Gran % (Auto) 0.3 Neut % (Auto) 76.8 H Lymph % (Auto) 15.1 L [place] % (Auto) 5.7 Eos % (Auto) 1.8 Baso % (Auto) 0.3 Lymph # (Auto) 1.7 [place] # (Auto) 0.6 Eos # (Auto) 0.2 Baso # (Auto) 0.0 Abs Immat Gran (auto) 0.03 Absolute Neuts (auto) 8.6 H Absolute Nucleated RBC 0.000 Nucleated RBC % (auto) 0.0 Anion Gap 20 Estim Creat Clear Calc 9.9 Estimated GFR 9 Random Glucose 239 H Calcium 9.2 D Magnesium 2.3 Total Bilirubin 0.4 Direct Bilirubin < 0.2 AST 11 ALT 8 Alkaline Phosphatase 172 H Total Protein 8.2 H Albumin 4.0 Lipase 22 Urine Color Urine Appearance Urine pH Ur Specific [place] Urine Protein Urine Glucose (UA) Urine Ketones Urine Blood Urine Nitrite Ur Leukocyte Esterase Urine RBC Urine WBC Ur Squamous Epith Cells Urine Bacteria Hyaline Casts Influenza Type A (PCR) NEGATIVE Influenza Type B (PCR) NEGATIVE RSV RNA Qual (PCR) NEGATIVE SARS-CoV-2 RNA (RT-PCR) NEGATIVE 10/14/22 10/14/22 10/14/22 13:38 15:51 20:12 MCV MCH MCHC RDW Plt Count MPV Immature Gran % (Auto) Neut % (Auto) Lymph % (Auto) [place] % (Auto) Eos % (Auto) Baso % (Auto) Lymph # (Auto) [place] # (Auto) Eos # (Auto) Baso # (Auto) Abs Immat Gran (auto) Absolute Neuts (auto) Absolute Nucleated RBC Nucleated RBC % (auto) Anion Gap 18 17 Estim Creat Clear Calc 10.3 9.8 Estimated GFR 10 9 Random Glucose 200 H 235 H Calcium 9.3 8.9 Magnesium Total Bilirubin Direct Bilirubin AST ALT Alkaline Phosphatase Total Protein Albumin Lipase Urine Color Yellow Urine Appearance Cloudy Urine pH >= 9.0 Ur Specific [place] 1.015 Urine Protein 300 (3+) H Urine Glucose (UA) Negative Urine Ketones Negative Urine Blood Negative Urine Nitrite Negative Ur Leukocyte Esterase Moderate (2+) H Urine RBC 0-2 Urine WBC >50 H Ur Squamous Epith Cells 0-2 Urine Bacteria 4+ Hyaline Casts 0-2 Influenza Type A (PCR) Influenza Type B (PCR) RSV RNA Qual (PCR) SARS-CoV-2 RNA (RT-PCR) Imaging Radiologist's Impressions: 1.? Moderate to large stool content in the colon and rectum with questionable rectal wall thickening but no significant perirectal fat stranding. Findings could be related with constipation and early stercoral colitis in the appropriate clinical context. 2.? Nonspecific gastric distention with heterogeneous and mixed density debris. Correlate clinically for gastroparesis. 3.? Increased soft tissue thickening of the abdominal wall anterior to the lower abdominal hernial mesh, recommend correlation with physical examination for signs of infection. 4.? Increased skin thickening with mild fat stranding of the intergluteal folds, recommend correlation with physical examination for decubitus ulcers or infection. Assessment and Plan (1) Nausea & vomiting: Status: Acute (2) Overflow diarrhea: Status: Acute (3) Acute UTI: Status: Acute (4) Acute kidney injury superimposed on CKD: Status: Acute (5) Acute hyperkalemia: Status: Acute (6) Status post amputation of finger: Status: Acute (7) Aspiration into airway: Status: Acute (8) Constipation: Status: Acute (9) Abnormal abdominal CT scan: Status: Acute Plan 67-year-old female with past medical history of CKD, CHF, diabetes, CVA presents the hospital with complaints of nausea vomiting found to have multiple complications Hong Konger-speaking, history is obtained with the help of an aids nurse # nausea vomiting as well as diarrhea - likely secondary to a constipation, likely overflow diarrhea - abdomen pelvic CT shows constipation and multiple abnormal findings suggestive of infection - at this time will give bowel regimen - monitor bowel movements, not effective, attempt enema # GIL CKD - CKD of stage 5, presents with worsening creatinine - likely exacerbated by dehydration in the setting of nausea vomiting as well as diarrhea - will treat with IV fluid - follow BMP - patient remained adamant that she does not want dialysis and repeated herself multiple times # UTI - history of Klebsiella urinary tract infection - will treat with ertapenem IV - follow cultures - infectious Disease consulted # likely aspiration pneumonia - chest x-ray shows diffuse interstitial patchiness and perihelia prominence - patient has abnormal findings on imaging suggestive of atypical viral infection - patient noted to be aspirating on her fluid - will keep NPO - IV antibiotic - speech consulted # abnormal abdominal CT scan - showing multiple findings of infection? - On exam no evience of abd wall cellulitis or decubitus ulcer/intragluteal infection - General surgery consulted # S/P amutation of left index finger - stiches remain in place - no evidence of infection gen surg consulted # Hyperkalemia - likely due to GIL on CKD - resolved - follow BMP # Hx of CVA - conitnue statin, asa # HTN - stable - continue antihypertensives # DM: - continue home insulin - LDSSI - diabetic diet DVT ppx: heparin given pt need for iv abx , pt will require min 2 nights inpatient hospital stay for further management and monitoring Time Spent With Patient Time: Total time managing care of this patient today ____ minutes. Quality Stroke Does the patient have a stroke diagnosis?: No VTE Prior VTE?: No VTE Risk Level:: Medical - moderate - high VTE Device Contraindication: Treatment Not Indicated VTE Drug Contraindication: N/A - Med Ordered
--- OUTSIDE RECORDS SUMMARY | 2022-10-14 21:34 | XMS_ITS | Encounter Summary ---
:1955 Author Care Team Providers Name Role Phone Alexys Avila MD Primary Care Provider [phone] - [address] Floor OTHER [phone] Mikey Pang MD OTHER [phone] Toya Panchal MD OTHER [phone] Andrea Vides MD OTHER [phone] Reason for Visit Initial Intake Assessment and Plan 1. Acute non-ST segment elevation myoca rdial infarction Medically optimized f/u prn 2. Osteomyelitis of finger of left hand s/p partial amp Needs hand surgeon f/u with Dr. Tyoa Panchal 1 week Script for oxycodone IR [...] above 15. Esophageal dysphagia On regular diet RN SPINE screen 16. Edema of lower extremity No evidence of volume overload on exam Is on Norvasc On Lasix -watch divalents, renal function, and Mg 17. Dyslipidemia statin 18. Degeneration of cervical interverte bral disc prn APAP PT/OT prn f/u prn 19. Cardiomyopathy medical optimized 20. 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 Nicole Rose at [facility]) 21. Irritable bowel syndrome Supportive care f/u prn 22. Insomnia co-occurrent and due to me dical condition Trazodone 23. Obstructive sleep apnea syndrome not on CPAP/BiPAP Follow clinically 24. Uterine prolapse Outpatient f/u with edi developer prn 25. Depressive disorder Denies SI/HI/AH/VH On [...] Code Code System Name Reaction Severity Onset [id number] RxNorm Latex Rash ? ? Problems Name [...] bivalent booster, PF, 30 mcg/0.3 mL dose ([employer]) 08/12/2022 COVID-19, mRNA, LNP-S, PF, 50 mcg/0.5 mL dose (Moderna) 05/26/2022 Social History Tobacco Smoking Status Former Smoker What is your level of alcohol None consumption? Has tobacco cessation counseling N Notes: N/A been provided? What is your code status? Full Code Do you have a medical power of N Notes: need HCP theatre professor? What was the date of your most [...] Velasquez PA-C: 282 Myocardial Infarction; Osteomyelitis [place], [place] Finger [place]; [place] [address], Ph. Chronic Kidney Disease; Chronic Kidney [...] with Sp-speaking VERONIQUE. 67-y/o F admitted from [facility] where she was hospitalized 09/14- 09/22/22 for [...] significant comorbidities. Transfused 2 ux PRBCs for [id number] anemia. Stool guaiacs neg. Seen by GI [...] 1+ RLE edema Recent Labs/Diagnostics: [place]09[place]22/22 [place] [facility] [place] CBC: 15.7/7.8/24.1/?; Speedy Hgb 6.9 lytes, BUN/Cr [...]
--- OUTSIDE RECORDS SUMMARY | 2022-10-14 21:34 | XMS_ITS | Encounter Summary ---
:1955 Author Care Team Providers Name Role Phone Alexys Avila MD Primary Care Provider [phone] Floor OTHER [phone] Mikey Pang MD OTHER [phone] Toya Panchal MD OTHER [phone] Andrea Vides MD OTHER [phone] Reason for Visit Admitting H&P admission history [...] 40 mg bid will monitor 7. 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 ? Problems Name [...] vaccine, vector-nr, rS-Ad26, PF , 0.5 mL ([employer]) 12/16/2020 COVID-19, mRNA, LNP-S, bivalent booster, PF, [...] medical power of N Notes: need HCP employee benefits attorney? What was the date of your most [...] non-ST Segment Elevation Jocelin Chowdhury MD: [address] [place] Myocardial Infarction; [place] [address], Ph. Disease Stage 5; History of [phone] Cerebrovascular Accident; Type 2 Diabetes Mellitus with Peripheral Angiopathy; Mixed Anxiety and Depressive Disorder; Essential Hypertension; Asthenia 09/22/2022 Acute non-ST Segment Elevation Dinorah Velasquez PA-C: 282 Myocardial Infarction; Osteomyelitis [place] Finger [place]; [place] [address], Ph. Chronic Kidney Disease; Chronic Kidney [...] 67 year old woman was admitted to [facility] on 09/22/22 for rehab and continued care. Medical history is remarkable for advanced CKD, DM, hypertension CHF, CAD, history of CVA, anemia, hyperlipidemia, history amputation right index and middle finger amputation due to necrosis Patient presented to ER at [facility] from a senior living facility due to infection of left index [...] Advanced directives: no signed MOLST seen in [facility] records at this time.Review of Systems: [...] ; left hand bandaged Notes: 09/14-09/22/22 @ [facility] [place] CBC: 15.7/7.8/24.1/?; Speedy Hgb 6.9 lytes, BUN/Cr [...]
--- OUTSIDE RECORDS SUMMARY | 2022-10-14 21:34 | XMS_ITS ---
:1955 Author Care Team Providers Name Role Phone DENYS SANDERS MD Primary Care Provider [phone] [facility] - 2ND FLOOR OTHER [phone] LUAN MAHAJAN MD OTHER [phone] LUKAS GRIGGS MD OTHER [phone] MYESHA FREY MD OTHER [phone] Allergies Code Code System Name Reaction Severity Status Onset [id number] RxNorm Latex Rash ? Active ? Medications [...] Date Diagnosis Provider 10/11/2022 EZEQUIEL Kennedy: [address], [place], [place] [address], Ph. [phone] 10/10/2022 EZEQUIEL Kennedy: [address], [place] [address], Ph. [phone] 09/28/2022 Acute non-ST Segment Elevation Jocelin Chowdhury MD: [address] [place] Myocardial Infarction; Chronic Kidney [address] , [place] [address], Ph. Disease Stage 5; History of Cerebrovascular Accident; Type 2 Diabetes Mellitus with Peripheral Angiopathy; Mixed Anxiety and Depressive Disorder; Essential Hypertension; Asthenia 09/22/2022 Acute non-ST Segment Elevation Dinorah Velasquez PA-C: 282 Myocardial Infarction; Osteomyelitis [address], [place], [place] Finger [place]; [place] [address], Ph. Chronic Kidney Disease; Chronic Kidney [...] vaccine, vector-nr, rS-Ad26, PF , 0.5 mL ([employer]) 12/16/2020 COVID-19, mRNA, LNP-S, bivalent booster, PF, 30 mcg/0.3 mL dose ([employer]) 08/12/2022 COVID-19, mRNA, LNP-S, PF, 50 mcg/0.5 mL dose ([employer]) 05/26/2022 Plan of Care Reminders Provider Appointments [...]
[2022-10-14] MEDS: Heparin Sodium,Porcine 5,000 UNIT/ML VIAL 5000 UNIT SUBCUT (21:56)
[2022-10-14] MEDS: Lactated Ringers 1,000 ML 100 ML IVCONT (21:57)
[2022-10-14 23:01] LABS: B Type Natriuretic Peptide 409 pg/mL (<100)
[2022-10-14 23:43] VITALS: BP 128/48; PULSE 91; RESP 15; TEMP 36.9; O2SAT 95
[2022-10-15] VITALS (7 sets, daily range): BP systolic 118–161; BP diastolic 54–74; PULSE 73–95; RESP 18–20; TEMP 36.7–37.1; O2SAT 94–98; BMI 33.1
[2022-10-15] MEDS: Piperacillin Sodium/Tazobactam 2.25 GM in 0.9 % Sodium Chloride 50 ML IV (00:03)
[2022-10-15] MEDS: 0.9 % Sodium Chloride Flush 3 ML SYRINGE IVFLUSH ×2 (00:03→09:28)
--- NOTE | 2022-10-15 01:07 | PC.NURSE ---
late entry- this rn attempted to perform swallow evaluation at 2330. pt sleeping at this time
--- NOTE | 2022-10-15 01:08 | PC.NURSE ---
this rn attempted to perform swallow @ 0045. pt sat up straight in bed. pt felt uncomfortable sitting up. daughter at bedside asked if RN could wait to perform evaluation. RN notified Dr Malave
--- NOTE | 2022-10-15 01:16 | PC.NURSE ---
dr perera notified of delay in bedside swallow eval. per dr perera will hold PO medications. Order placed for swallow eval to be performed by speech therapy. med hold documented in mar accordingly
--- NOTE | 2022-10-15 01:56 | PC.NURSE ---
pt sleeping at this time. report called to floor nurse Sherrie. this rn attempted to call pt daughter NO hanson to inform that pt got a room. informed of bed assignment 453.
--- NOTE | 2022-10-15 02:58 | PC.NURSE ---
Pt arrived from the ED per stretcher at 0240, alert and oriented, forgetfull, pale weak, luxembourger speaking staff helped with adm process, pt denies any discomfort, Sr on the tele, noted with left pointer finger amputation with sutures intact, area is dry and crusting QC SCIENTIST, pt is incontinent of both.
[2022-10-15 07:25] LABS: Glucose, Whole Blood 241 mg/dL (60-115)
[2022-10-15] MEDS: Famotidine 20 MG TABLET PO (09:26)
[2022-10-15] MEDS: Clopidogrel Bisulfate 75 MG TABLET PO (09:26)
[2022-10-15] MEDS: Calcium + Vitamin D 250 MG TABLET PO (09:26)
[2022-10-15] MEDS: Heparin Sodium,Porcine 5,000 UNIT/ML VIAL 5000 UNIT SUBCUT ×2 (09:27→20:36)
[2022-10-15] MEDS: polyethylene glycoL 3350 17 GM POWD.PACK PO (09:27)
[2022-10-15] MEDS: Sodium Bicarbonate 650 MG TABLET PO (09:27)
[2022-10-15] MEDS: Furosemide 40 MG TABLET PO ×2 (09:27→17:37)
[2022-10-15] MEDS: carvediloL 6.25 MG TABLET PO ×2 (09:27→20:34)
[2022-10-15] MEDS: Sertraline HCL 50 MG TABLET PO (09:27)
[2022-10-15] MEDS: amLODIPine Besylate 10 MG TABLET PO (09:30)
[2022-10-15] MEDS: Insulin Lispro 100 UNIT/ML 3 ML VIAL SUBCUT ×2 (09:36→11:56)
[2022-10-15] MEDS: Insulin Glargine,Hum.rec.anlog 100 UNIT/ML 10 ML VIAL 18 UNIT SUBCUT (09:37)
[2022-10-15] MEDS: Lactated Ringers 1,000 ML 100 ML IVCONT (09:40)
--- NOTE | 2022-10-15 10:12 | P.CONNP_ITS ---
History of Present Illness Reason for Consult Consult date: 10/15/22 Chief Complaint Chief complaint: Hyperkalemia History of Present Illness Narrative: 67-year-old female with history of CKD stage 5 presented to the hospital with nausea vomiting and was found to have worsening kidney function and elevated serum potassium. She complains of nausea vomiting and decreased oral intake in addition to multiple episodes of diarrhea. There is no report of fever, chills, chest pain, shortness of breath or abdominal pain. Abdomen CT showed moderate to large stool content in the colon and rectum with rectal wall thickening but no significant perirectal fat stranding, gastroparesis, Review of Systems Review of Systems 10 points ROS negative except for pertinent in HPI PMFSH Past Medical History Medical History Acute on chronic renal failure Acute worsening of stage 4 chronic kidney disease Anemia Blister of finger without infection Cardiomyopathy Cholecystectomy planned Chronic heart failure with preserved ejection fraction (HFpEF) Chronic kidney failure CKD (chronic kidney disease) CKD (chronic kidney disease) stage 3, GFR 30-59 ml/min CKD (chronic kidney disease) stage 4, GFR 15-29 ml/min CKD (chronic kidney disease) stage 5, GFR less than 15 ml/min CKD (chronic kidney disease), stage IV Congestive heart failure Diabetes Diabetes mellitus Elevated d-dimer Elevated troponin Essential hypertension Gastroparesis Generalized weakness GERD (gastroesophageal reflux disease) Hand pain Hernia HLD (hyperlipidemia) HTN (hypertension) Hypomagnesemia Irritable bowel syndrome with diarrhea Lightheadedness Low blood pressure Non-ST elevated myocardial infarction Nonischemic cardiomyopathy Normocytic anemia Other and unspecified hyperlipidemia Pharyngoesophageal dysphagia Type 2 diabetes mellitus with unspecified complications UTI (urinary tract infection) Family History Family History Father Lung cancer Mother Diabetes HTN (hypertension) Heart disease Sister Diabetes Heart disease Brother Heart disease Son Diabetes Daughter Diabetes Surgical History Surgical History H/O: hysterectomy History of esophagogastroduodenoscopy (EGD) Hx of colonoscopy Hx of eye surgery Social History Social History Household Members: Caregiver Household Members Other:: SNF Housing: Senior Living Do you presently have visiting nurse or other home services: No Unable to assess alcohol history related to: Unknown Alcohol intake: never Patient Tobacco Use Status: Never used Tobacco Smoked in Last 30 Days: No Second Hand Smoke Exposure: No Use of substances other than those prescribed or required for medical reasons: No Have you been hit, kicked, punched, or otherwise hurt by someone within the past year? If so, by whom?: No Do you feel safe in your current relationship?: No Current Relationship Is there a partner from a previous relationship who is making you feel unsafe now?: No Are you made to feel afraid or neglected: No Advance Directives: Yes Advance Directives on File: Yes Advance Directives Date on File: 02/02/22 Do you have thoughts of harming others: None Do you have a plan to hurt others: No Plan Recently lost weight without trying: Unsure How much weight loss: Unsure Eating poorly because of decreased appetite: Yes Nutrition screen score: 5 Nutrition Risks: Difficulty swallowing Patient : No : No Poor oral hygiene: No service: No Current occupational status: disabled Meds Allergies Allergy/AdvReac Type Severity Reaction Status Date / Time latex [LATEX] Allergy Intermediate ITCHY Verified 10/11/22 11:59 Active Medications: Current Medications Acetaminophen (Acetaminophen 325 Mg Tablet) 650 mg PO Q6H PRN PRN Reason: Pain, Mild (Pain Scale 1-3) Amlodipine Besylate (Amlodipine Besylate 10 Mg Tablet) 10 mg PO DAILY [facility]; Protocol Last Admin: 10/15/22 09:30 Dose: 10 mg Aspirin (Aspirin Enteric Coated 81 Mg Tablet.Dr) 81 mg PO BEDTIME [facility] Atorvastatin Calcium (Atorvastatin Calcium 80 Mg Tablet) 80 mg PO BEDTIME [facility] Calcium Carbonate/Cholecalciferol (Calcium + Vitamin D 250 Mg Tablet) 250 mg PO BID [facility] Last Admin: 10/15/22 09:26 Dose: 250 mg Carvedilol (Carvedilol 6.25 Mg Tablet) 6.25 mg PO BID [facility]; Protocol Last Admin: 10/15/22 09:27 Dose: 6.25 mg Clopidogrel Bisulfate (Clopidogrel Bisulfate 75 Mg Tablet) 75 mg PO DAILY [facility] Last Admin: 10/15/22 09:26 Dose: 75 mg Albuterol Sulfate 2.5 mg/ (Ipratropium [place] 0.5 mg) 0 mg INHALE Q4H PRN PRN Reason: Wheezing Dextrose (Dextrose 50 % 25 Gm/50 Ml Syringe) 25 gm IVPUSH Q15M PRN; Protocol PRN Reason: per Hypoglycemia Standing Ord. Docusate Sodium (Docusate Sodium 100 Mg Capsule) 100 mg PO DAILY PRN PRN Reason: Constipation Famotidine (Famotidine 20 Mg Tablet) 20 mg PO Q2D@0900 [facility] Last Admin: 10/15/22 09:26 Dose: 20 mg Furosemide (Furosemide 40 Mg Tablet) 40 mg PO BIDWM [facility]; Protocol Last Admin: 10/15/22 09:27 Dose: 40 mg Glucose (Glucose Gel 15 Gm Gel..Gram.) 15 gm PO Q15M PRN; Protocol PRN Reason: per Hypoglycemia Standing Ord. Heparin Sodium (Porcine) (Heparin Sodium,Porcine 5,000 Unit/Ml Vial) 5,000 unit SUBCUT Q12H [facility] Last Admin: 10/15/22 09:27 Dose: 5,000 unit Lactated Ringer's (Lr) 1,000 mls @ 100 mls/hr IVCONT .Q10H [facility] Last Admin: 10/15/22 09:40 Dose: 100 mls/hr Insulin Glargine (Insulin Glargine,Hum.Rec.Anlog 100 Unit/Ml 10 Ml Vial) 18 unit SUBCUT DAILY [facility] Last Admin: 10/15/22 09:37 Dose: 18 unit Insulin Human Lispro (Insulin Lispro 100 Unit/Ml 3 Ml Vial) 0 unit SUBCUT QIDACHS [facility]; Protocol Last Admin: 10/15/22 09:36 Dose: 4 unit Magnesium Hydroxide (Milk Of Magnesia 30 Ml Oral.Susp) 30 ml PO BEDTIME PRN PRN Reason: constipation Ondansetron HCl (Ondansetron Hcl 4 Mg/2 Ml Vial) 4 mg IVPUSH Q8H PRN PRN Reason: Nausea and Vomiting Oxycodone HCl (Oxycodone Hcl Immed Release 5 Mg Tablet) 5 mg PO Q6H PRN PRN Reason: Pain, Severe (Pain Scale 7-10) Polyethylene Glycol (Polyethylene Glycol 3350 17 Gm Powd.Pack) 17 gm PO DAILY [facility] Last Admin: 10/15/22 09:27 Dose: 17 gm Sertraline HCl (Sertraline Hcl 50 Mg Tablet) 50 mg PO DAILY [facility] Last Admin: 10/15/22 09:27 Dose: 50 mg Sodium Bicarbonate (Sodium Bicarbonate 650 Mg Tablet) 650 mg PO BID [facility] Last Admin: 10/15/22 09:27 Dose: 650 mg Sodium Chloride (0.9 % Sodium Chloride Flush 3 Ml Syringe) 3 ml IVFLUSH QSHIFT [facility] Last Admin: 10/15/22 09:28 Dose: 3 ml Trazodone HCl (Trazodone Hcl 50 Mg Tablet) 50 mg PO BEDTIME [facility] Home Medications Medication Instructions Recorded Confirmed Last Taken Type aspirin 81 mg tablet,delayed 81 mg PO BEDTIME 06/20/21 10/14/22 10/14/22 History release atorvastatin 80 mg tablet 80 mg PO BEDTIME 06/20/21 10/14/22 10/13/22 History calcium carbonate 600 mg-vitamin 1 tab PO BID 06/20/21 10/14/22 10/14/22 History D3 10 mcg (400 unit) tablet clopidogrel 75 mg tablet 75 mg PO DAILY 06/20/21 10/14/22 10/13/22 History magnesium oxide 400 mg (241.3 mg 400 mg PO BID 06/20/21 10/14/22 10/14/22 History magnesium) tablet sertraline 50 mg tablet 50 mg PO DAILY 06/20/21 10/14/22 10/14/22 History trazodone 50 mg tablet 50 mg PO BEDTIME 06/20/21 10/14/22 10/13/22 History insulin glargine 100 unit/mL (3 18 unit subcut DAILY 03/25/22 10/14/22 10/14/22 History mL) subcutaneous pen (Lantus Solostar U-100 Insulin) ipratropium 0.5 mg-albuterol 3 mg 3 ml inhalation Q4H PRN Wheezing 05/05/22 10/14/22 Unknown History (2.5 mg base)/3 mL nebulization soln furosemide 40 mg tablet (Lasix) 40 mg PO BIDWM 10/14/22 10/14/22 10/14/22 History insulin lispro 100 unit/mL See Protocol subcut QIDACHS 10/14/22 10/14/22 10/14/22 History subcutaneous solution (Humalog U-100 Insulin) acetaminophen 500 mg tablet 1,000 mg PO Q6H PRN Fever Or Pain 10/15/22 10/15/22 Unknown History bisacodyl 10 mg rectal suppository 10 mg [place] DAILY PRN Constipation 10/15/22 10/15/22 Unknown History magnesium hydroxide 400 mg/5 mL 30 ml PO DAILY PRN Constipation 10/15/2210/15 Unknown History oral suspension (Milk of Magnesia) naloxone 0.4 mg/mL injection 0.4 mg subcut Q3M PRN Opioid 10/15/22 10/15/22 Unknown History solution Overdose sodium phosphates 19 gram-7 118 ml [place] DAILY PRN Constipation 10/15/22 10/15/22 Unknown History gram/118 mL enema (Fleet Enema) Physical Exam Vital Signs: Last Vital Signs Temp 98.1 F 10/15/22 07:52 Pulse 90 10/15/22 07:52 Resp 20 10/15/22 07:52 BP 159/71 H 10/15/22 07:52 Pulse Ox 96 10/15/22 07:52 O2 Del Method 10/15/22 07:52 BMI result Body Mass Index 33.1 Const General: no acute distress HEENT Head: Yes normocephalic and Yes atraumatic Neck Neck: Yes supple Resp Auscultation: diminished lung sounds Cardio Heart sounds: S1 normal heart sound present and S2 normal heart sound present GI Palpation (GI): Soft to palpation and nontender Extrem General: No clubbing and No cyanosis Results Lab Results 10/14/22 12:35 10/14/22 20:12 Lab results: Chemistry 10/14/22 10/14/22 10/14/22 12:35 15:51 20:12 Sodium 140 141 140 Potassium 6.7 H* D 6.2 H* 5.4 H Carbon Dioxide 21 L 22 21 L BUN 70 H 69 H 65 H Creatinine 4.65 H* 4.47 H* 4.71 H* Calcium 9.2 D 9.3 8.9 Hematology 10/14/22 12:35 WBC 11.1 H Hgb 11.0 L D Plt Count 265 D Urinalysis 10/14/22 13:38 Urine Color Yellow Urine Appearance Cloudy Urine pH >= 9.0 Ur Specific [place] 1.015 Urine Protein 300 (3+) H Urine Glucose (UA) Negative Urine Ketones Negative Urine Blood Negative Urine Nitrite Negative Ur Leukocyte Esterase Moderate (2+) H Urine RBC 0-2 Urine WBC >50 H Ur Squamous Epith Cells 0-2 Hyaline Casts 0-2 Assessment and Plan (1) GIL (acute kidney injury): Status: Acute (2) Hyperkalemia: Status: Acute (3) Metabolic acidosis: Status: Acute (4) Anemia: Status: Acute (5) CKD (chronic kidney disease) stage 5, GFR less than 15 ml/min: Status: Acute Plan GIL superimposed on advanced CKD probably renal hypoperfusion given clinical presentation known advanced CKD due to DM/HTN baseline Scr ~ 3.5-4 mg/dl elevated serum potassium due to decreased distal flow anemia due to CKD REC change IVF from LR to NS sodium zirconium as needed c/w NaHCO3 orally protect non dominant arm no indication for PURCHASING INTERN follow kidney function and electrolytes Time Spent With Patient Time: Total time managing care of this patient today ____ minutes. Procedures Date of Service Date of Service: 10/15/22
[2022-10-15 11:10] LABS: Glucose, Whole Blood 174 mg/dL (60-115)
[2022-10-15] MEDS: 0.9 % Sodium Chloride 1,000 ML 100 ML IVCONT ×2 (11:57→20:35)
[2022-10-15] MEDS: oxyCODONE HCl Immed Release 5 MG TABLET PO (12:02)
--- NOTE | 2022-10-15 14:17 | PM.CNGS ---
History of Present Illness Consult details Consult date: 10/15/22 Reason for consult: wound care Narrative: the patient is a 67-year-old female with multiple medical problems admitted last night. past medical history of CKD stage 5, CHF, diabetes, GERD, HLD, HTN CAD, and type 2 diabetes presents to the hospital with nausea vomiting as well as her daughter being worried that her labs may be abnormal due to her history of hyperkalemia.? Symptoms started 3 days ago, she has severe nausea vomiting and intolerance to Po intake.? Reports multiple episodes of diarrhea, that have improved today but reports no abdominal pain, reports no fever, has chills chronically,? reports no shortness of breath, no cough, no orthopnea PND, no lower extremity edema.? Denies any urinary symptoms.? ? Abdomen pelvic CT shows moderate to large stool content in the colon and rectum with rectal wall thickening but no significant perirectal fat stranding, gastroparesis, She underwent left index finger resection by Hand surgery back mid September and last week was seen as an outpatient and had some of the sutures removed. She has plan to see Hand surgery again this coming week for the rest of the sutures to be removed. During her hospitalization here she had a CT scan of her abdomen which showed some fluid around the abdominal wall and it seems she has had a previous hernia repair with mesh present. She denies any pain or tenderness in this area. Review of Systems Review of Systems: Yes all other systems are reviewed and are negative PENDING SALE TO [facility] Past Medical History Medical History Acute on chronic renal failure Acute worsening of stage 4 chronic kidney disease Anemia Blister of finger without infection Cardiomyopathy Cholecystectomy planned Chronic heart failure with preserved ejection fraction (HFpEF) Chronic kidney failure CKD (chronic kidney disease) CKD (chronic kidney disease) stage 3, GFR 30-59 ml/min CKD (chronic kidney disease) stage 4, GFR 15-29 ml/min CKD (chronic kidney disease) stage 5, GFR less than 15 ml/min CKD (chronic kidney disease), stage IV Congestive heart failure Diabetes Diabetes mellitus Elevated d-dimer Elevated troponin Essential hypertension Gastroparesis Generalized weakness GERD (gastroesophageal reflux disease) Hand pain Hernia HLD (hyperlipidemia) HTN (hypertension) Hypomagnesemia Irritable bowel syndrome with diarrhea Lightheadedness Low blood pressure Non-ST elevated myocardial infarction Nonischemic cardiomyopathy Normocytic anemia Other and unspecified hyperlipidemia Pharyngoesophageal dysphagia Type 2 diabetes mellitus with unspecified complications UTI (urinary tract infection) Family History Family History Father Lung cancer Mother Diabetes HTN (hypertension) Heart disease Sister Diabetes Heart disease Brother Heart disease Son Diabetes Daughter Diabetes Surgical History Surgical History H/O: hysterectomy History of esophagogastroduodenoscopy (EGD) Hx of colonoscopy Hx of eye surgery Social History Social History Household Members: Caregiver Household Members Other:: SNF Housing: Shelter Do you presently have visiting nurse or other home services: No Unable to assess alcohol history related to: Unknown Alcohol intake: never Patient Tobacco Use Status: Never used Tobacco Smoked in Last 30 Days: No Second Hand Smoke Exposure: No Use of substances other than those prescribed or required for medical reasons: No Currently Displaying Signs/Symptoms of Drug Intoxication Withdrawal: No Have you been hit, kicked, punched, or otherwise hurt by someone within the past year? If so, by whom?: No Do you feel safe in your current relationship?: No Current Relationship Is there a partner from a previous relationship who is making you feel unsafe now?: No Are you made to feel afraid or neglected: No Advance Directives: Yes Advance Directives on File: Yes Advance Directives Date on File: 02/02/22 Do you have thoughts of harming others: None Do you have a plan to hurt others: No Plan Recently lost weight without trying: Unsure How much weight loss: Unsure Eating poorly because of decreased appetite: Yes Nutrition screen score: 5 Nutrition Risks: Difficulty swallowing Patient : No : No Poor oral hygiene: No service: No Current occupational status: disabled Meds Allergies Allergy/AdvReac Type Severity Reaction Status Date / Time latex [LATEX] Allergy Intermediate ITCHY Verified 10/11/22 11:59 Active Medications: Current Medications Acetaminophen (Acetaminophen 325 Mg Tablet) 650 mg PO Q6H PRN PRN Reason: Pain, Mild (Pain Scale 1-3) Amlodipine Besylate (Amlodipine Besylate 10 Mg Tablet) 10 mg PO DAILY [facility]; Protocol Last Admin: 10/15/22 09:30 Dose: 10 mg Aspirin (Aspirin Enteric Coated 81 Mg Tablet.Dr) 81 mg PO BEDTIME REPLACED BY [facility] Atorvastatin Calcium (Atorvastatin Calcium 80 Mg Tablet) 80 mg PO BEDTIME REPLACED BY [facility] Bisacodyl (Bisacodyl 10 Mg Supp.Rect) 10 mg [place] DAILY PRN PRN Reason: Constipation Calcium Carbonate/Cholecalciferol (Calcium + Vitamin D 250 Mg Tablet) 250 mg PO BID [facility]PL[facility] Last Admin: 10/15/22 09:26 Dose: 250 mg Carvedilol (Carvedilol 6.25 Mg Tablet) 6.25 mg PO BID [facility]; Protocol Last Admin: 10/15/22 09:27 Dose: 6.25 mg Clopidogrel Bisulfate (Clopidogrel Bisulfate 75 Mg Tablet) 75 mg PO DAILY [facility] Last Admin: 10/15/22 09:26 Dose: 75 mg Albuterol Sulfate 2.5 mg/ (Ipratropium [place] 0.5 mg) 0 mg INHALE Q4H PRN PRN Reason: Wheezing Dextrose (Dextrose 50 % 25 Gm/50 Ml Syringe) 25 gm IVPUSH Q15M PRN; Protocol PRN Reason: per Hypoglycemia Standing Ord. Docusate Sodium (Docusate Sodium 100 Mg Capsule) 100 mg PO DAILY PRN PRN Reason: Constipation Famotidine (Famotidine 20 Mg Tablet) 20 mg PO Q2D@0900 [facility]PL[facility]ED [facility] Last Admin: 10/15/22 09:26 Dose: 20 mg Furosemide (Furosemide 40 Mg Tablet) 40 mg PO BIDWM REPLACED BY [facility]; Protocol Last Admin: 10/15/22 09:27 Dose: 40 mg Glucose (Glucose Gel 15 Gm Gel..Gram.) 15 gm PO Q15M PRN; Protocol PRN Reason: per Hypoglycemia Standing Ord. Heparin Sodium (Porcine) (Heparin Sodium,Porcine 5,000 Unit/Ml Vial) 5,000 unit SUBCUT Q12H [facility]PL[facility]ED [facility] Last Admin: 10/15/22 09:27 Dose: 5,000 unit Sodium Chloride (Ns) 1,000 mls @ 100 mls/hr IVCONT .Q10H REPLACED BY [facility] Last Admin: 10/15/22 11:57 Dose: 100 mls/hr Insulin Glargine (Insulin Glargine,Hum.Rec.Anlog 100 Unit/Ml 10 Ml Vial) 18 unit SUBCUT DAILY [facility] Last Admin: 10/15/22 09:37 Dose: 18 unit Insulin Human Lispro (Insulin Lispro 100 Unit/Ml 3 Ml Vial) 0 unit SUBCUT QIDACHS REPLACED BY [facility]; Protocol Last Admin: 10/15/22 11:56 Dose: 2 unit Magnesium Hydroxide (Milk Of Magnesia 30 Ml Oral.Susp) 30 ml PO BEDTIME PRN PRN Reason: constipation Magnesium Hydroxide (Milk Of Magnesia 30 Ml Oral.Susp) 30 ml PO DAILY PRN PRN Reason: Constipation Naloxone HCl (Naloxone Hcl 0.4 Mg/Ml Vial) 0.4 mg SUBCUT Q3M PRN PRN Reason: Opioid Overdose Ondansetron HCl (Ondansetron Hcl 4 Mg/2 Ml Vial) 4 mg IVPUSH Q8H PRN PRN Reason: Nausea and Vomiting Oxycodone HCl (Oxycodone Hcl Immed Release 5 Mg Tablet) 5 mg PO Q6H PRN PRN Reason: Pain, Severe (Pain Scale 7-10) Last Admin: 10/15/22 12:02 Dose: 5 mg Polyethylene Glycol (Polyethylene Glycol 3350 17 Gm Powd.Pack) 17 gm PO DAILY [facility]PL[facility]ED [facility] Last Admin: 10/15/22 09:27 Dose: 17 gm Sertraline HCl (Sertraline Hcl 50 Mg Tablet) 50 mg PO DAILY [facility]PL[facility]ED [facility] Last Admin: 10/15/22 09:27 Dose: 50 mg Sodium Bicarbonate (Sodium Bicarbonate 650 Mg Tablet) 650 mg PO BID REPLACED BY [facility] Last Admin: 10/15/22 09:27 Dose: 650 mg Sodium Biphosphate/Sodium Phosphate (Sodium Phosphate,[place]-Dibasic 133 Ml Enema) 118 ml [place] DAILY PRN PRN Reason: Constipation Sodium Chloride (0.9 % Sodium Chloride Flush 3 Ml Syringe) 3 ml IVFLUSH QSHIFT REPLACED BY [facility] Last Admin: 10/15/22 09:28 Dose: 3 ml Trazodone HCl (Trazodone Hcl 50 Mg Tablet) 50 mg PO BEDTIME REPLACED BY [facility] Home Medications Medication Instructions Recorded Confirmed Last Taken Type aspirin 81 mg tablet,delayed 81 mg PO BEDTIME 06/20/21 10/14/22 10/14/22 History release atorvastatin 80 mg tablet 80 mg PO BEDTIME 06/20/21 10/14/22 10/13/22 History calcium carbonate 600 mg-vitamin 1 tab PO BID 06/20/21 10/14/22 10/14/22 History D3 10 mcg (400 unit) tablet clopidogrel 75 mg tablet 75 mg PO DAILY 06/20/21 10/14/22 10/13/22 History magnesium oxide 400 mg (241.3 mg 400 mg PO BID 06/20/21 10/14/22 10/14/22 History magnesium) tablet sertraline 50 mg tablet 50 mg PO DAILY 06/20/21 10/14/22 10/14/22 History trazodone 50 mg tablet 50 mg PO BEDTIME 06/20/21 10/14/22 10/13/22 History insulin glargine 100 unit/mL (3 18 unit subcut DAILY 03/25/22 10/14/22 10/14/22 History mL) subcutaneous pen (Lantus Solostar U-100 Insulin) ipratropium 0.5 mg-albuterol 3 mg 3 ml inhalation Q4H PRN Wheezing 05/05/22 10/14/22 Unknown History (2.5 mg base)/3 mL nebulization soln furosemide 40 mg tablet (Lasix) 40 mg PO BIDWM 10/14/22 10/14/22 10/14/22 History insulin lispro 100 unit/mL See Protocol subcut QIDACHS 10/14/22 10/14/22 10/14/22 History subcutaneous solution (Humalog U-100 Insulin) acetaminophen 500 mg tablet 1,000 mg PO Q6H PRN Fever Or Pain 10/15/22 10/15/22 Unknown History bisacodyl 10 mg rectal suppository 10 mg [place] DAILY PRN Constipation 10/15/22 10/15/22 Unknown History magnesium hydroxide 400 mg/5 mL 30 ml PO DAILY PRN Constipation 10/15/22 10/15/22 Unknown History oral suspension (Milk of Magnesia) naloxone 0.4 mg/mL injection 0.4 mg subcut Q3M PRN Opioid 10/15/22 10/15/22 Unknown History solution Overdose sodium phosphates 19 gram-7 118 ml [place] DAILY PRN Constipation 10/15/22 10/15/22 Unknown History gram/118 mL enema (Fleet Enema) Physical Exam Vital Signs: Vital Signs: Last Vital Signs Temp 98.8 F 10/15/22 11:00 Pulse 81 10/15/22 11:00 Resp 20 10/15/22 11:00 BP 133/65 10/15/22 11:00 Pulse Ox 94 10/15/22 11:00 O2 Del Method 10/15/22 11:00 BMI result Body Mass Index 33.1 GI: Other: Patient's abdomen is soft nondistended nontender. There is no visible erythema or edema of the abdominal wall Skin: Other: Left index finger looks good the tissue looks well approximated and the sutures are still in place look fine. Results Labs 10/14/22 12:35 10/14/22 20:12 Labs: Abnormal lab results 10/14/22 10/14/22 10/14/22 Range/Units 15:51 20:12 22:20 Potassium 6.2 H* 5.4 H (3.3-5.1) mmol/L Carbon Dioxide 21 L (22-29) mmol/L BUN 69 H 65 H (9-16) mg/dL Creatinine 4.47 H* 4.71 H* (0.5-1.4) mg/dL POC Glucose (60-115) mg/dL Random Glucose 200 H 235 H (60-115) mg/dL B-Natriuretic Peptide 409 H (<100) pg/mL 10/15/22 10/15/22 Range/Units 07:04 11:01 Potassium (3.3-5.1) mmol/L Carbon Dioxide (22-29) mmol/L BUN (9-16) mg/dL Creatinine (0.5-1.4) mg/dL POC Glucose 241 H 174 H (60-115) mg/dL Random Glucose (60-115) mg/dL B-Natriuretic Peptide (<100) pg/mL BMP 10/14/22 10/14/22 15:51 20:12 Sodium 141 140 Potassium 6.2 H* 5.4 H Chloride 107 107 Carbon Dioxide 22 21 L BUN 69 H 65 H Creatinine 4.47 H* 4.71 H* Calcium 9.3 8.9 Urine 10/14/22 Range/Units 13:38 Urine Color Yellow Urine Appearance Cloudy Urine pH >= 9.0 (5.0-9.0) Ur Specific [place] 1.015 (1.005-1.025) Urine Protein 300 (3+) H (Neg-Trace) mg/dL Urine Glucose (UA) Negative (Negative) mg/dL All other labs normal. Imaging Abdomen CT scan report/results: report reviewed and image reviewed Assessment and Plan (1) Abnormal abdominal CT scan: Status: Acute 67-year-old female with CT scan of her abdomen and pelvis I do not see anything concerning that correlates clinically to any surgical process. She may have a little more fluid in her soft tissue secondary to her renal issues and this is what showing up around the mesh area but there is no evidence of any infection and clinically she soft nontender and her abdominal wall looks fine (2) Ischemic necrosis of finger: Status: Acute Plan patient amputation site looks fine there are still some sutures in place but she has a follow-up appointment this week with Hand surgery and would allow them To remove sutures at that visit Time Spent With Patient Time: Total time managing care of this patient today ____ minutes. Procedures Date of Service Date of Service: 10/15/22
[2022-10-15 15:58] LABS: Glucose, Whole Blood 95 mg/dL (60-115)
--- NOTE | 2022-10-15 16:28 | P.PNIM_ITS ---
Subjective Subjective Date of Service: 10/15/22 Interval History: No acute issues overnight. Complains of diffuse pain that was relieved by Percocet Review of Systems Via channel layer Denies chest pain Denies shortness of breath Denies nausea vomiting diarrhea Physical Exam Vital Signs: Vital Signs: Last Vital Signs Temp 98.0 F 10/15/22 15:29 Pulse 78 10/15/22 15:29 Resp 19 10/15/22 15:29 BP 118/74 10/15/22 15:29 Pulse Ox 96 10/15/22 15:29 O2 Del Method 10/15/22 15:29 BMI result Body Mass Index 33.1 Const: Other: awake alert no acute distress Resp: Other: Clear to auscultation bilaterally no rales rhonchi or wheezes Cardio: Other: No S4; positive S1-S2; no S3 murmurs rubs gallops GI: Other: Soft nontender nondistended normoactive bowel sounds Extrem: Other: No edema bilaterally Objective Data Active Medications Acetaminophen (Acetaminophen 325 Mg Tablet) 650 mg PO Q6H PRN PRN Reason: Pain, Mild (Pain Scale 1-3) Amlodipine Besylate (Amlodipine Besylate 10 Mg Tablet) 10 mg PO DAILY [facility]; Protocol Last Admin: 10/15/22 09:30 Dose: 10 mg Documented By: ELANA Aspirin (Aspirin Enteric Coated 81 Mg Tablet.) 81 mg PO BEDTIME [facility] Atorvastatin Calcium (Atorvastatin Calcium 80 Mg Tablet) 80 mg PO BEDTIME [facility] Bisacodyl (Bisacodyl 10 Mg Supp.Rect) 10 mg [place] DAILY PRN PRN Reason: Constipation Calcium Carbonate/Cholecalciferol (Calcium + Vitamin D 250 Mg Tablet) 250 mg PO BID [facility] Last Admin: 10/15/22 09:26 Dose: 250 mg Documented By: ELANA Carvedilol (Carvedilol 6.25 Mg Tablet) 6.25 mg PO BID [facility]; Protocol Last Admin: 10/15/22 09:27 Dose: 6.25 mg Documented By: ELANA Clopidogrel Bisulfate (Clopidogrel Bisulfate 75 Mg Tablet) 75 mg PO DAILY [facility] Last Admin: 10/15/22 09:26 Dose: 75 mg Documented By: ELANA Albuterol Sulfate 2.5 mg/ (Ipratropium [place] 0.5 mg) 0 mg INHALE Q4H PRN PRN Reason: Wheezing Dextrose (Dextrose 50 % 25 Gm/50 Ml Syringe) 25 gm IVPUSH Q15M PRN; Protocol PRN Reason: per Hypoglycemia Standing Ord. Docusate Sodium (Docusate Sodium 100 Mg Capsule) 100 mg PO DAILY PRN PRN Reason: Constipation Famotidine (Famotidine 20 Mg Tablet) 20 mg PO Q2D@0900 [facility] Last Admin: 10/15/22 09:26 Dose: 20 mg Documented By: ELANA Furosemide (Furosemide 40 Mg Tablet) 40 mg PO BIDWM [facility]; Protocol Last Admin: 10/15/22 09:27 Dose: 40 mg Documented By: ELANA Glucose (Glucose Gel 15 Gm Gel..Gram.) 15 gm PO Q15M PRN; Protocol PRN Reason: per Hypoglycemia Standing Ord. Heparin Sodium (Porcine) (Heparin Sodium,Porcine 5,000 Unit/Ml Vial) 5,000 unit SUBCUT Q12H [facility] Last Admin: 10/15/22 09:27 Dose: 5,000 unit Documented By: ELANA Sodium Chloride (Ns) 1,000 mls @ 100 mls/hr IVCONT .Q10H [facility] Last Admin: 10/15/22 11:57 Dose: 100 mls/hr Documented By: ELANA Insulin Glargine (Insulin Glargine,Hum.Rec.Anlog 100 Unit/Ml 10 Ml Vial) 18 unit SUBCUT DAILY [facility] Last Admin: 10/15/22 09:37 Dose: 18 unit Documented By: ELANA Insulin Human Lispro (Insulin Lispro 100 Unit/Ml 3 Ml Vial) 0 unit SUBCUT QIDACHS [facility]; Protocol Last Admin: 10/15/22 11:56 Dose: 2 unit Documented By: ELANA Magnesium Hydroxide (Milk Of Magnesia 30 Ml Oral.Susp) 30 ml PO BEDTIME PRN PRN Reason: constipation Magnesium Hydroxide (Milk Of Magnesia 30 Ml Oral.Susp) 30 ml PO DAILY PRN PRN Reason: Constipation Naloxone HCl (Naloxone Hcl 0.4 Mg/Ml Vial) 0.4 mg SUBCUT Q3M PRN PRN Reason: Opioid Overdose Ondansetron HCl (Ondansetron Hcl 4 Mg/2 Ml Vial) 4 mg IVPUSH Q8H PRN PRN Reason: Nausea and Vomiting Oxycodone HCl (Oxycodone Hcl Immed Release 5 Mg Tablet) 5 mg PO Q6H PRN PRN Reason: Pain, Severe (Pain Scale 7-10) Last Admin: 10/15/22 12:02 Dose: 5 mg Documented By: ELANA Polyethylene Glycol (Polyethylene Glycol 3350 17 Gm Powd.Pack) 17 gm PO DAILY [facility] Last Admin: 10/15/22 09:27 Dose: 17 gm Documented By: ELANA Sertraline HCl (Sertraline Hcl 50 Mg Tablet) 50 mg PO DAILY [facility] Last Admin: 10/15/22 09:27 Dose: 50 mg Documented By: ELANA Sodium Bicarbonate (Sodium Bicarbonate 650 Mg Tablet) 650 mg PO BID [facility] Last Admin: 10/15/22 09:27 Dose: 650 mg Documented By: ELANA Sodium Biphosphate/Sodium Phosphate (Sodium Phosphate,Thayer-Dibasic 133 Ml Enema) 118 ml [place] DAILY PRN PRN Reason: Constipation Sodium Chloride (0.9 % Sodium Chloride Flush 3 Ml Syringe) 3 ml IVFLUSH QSHIFT [facility] Last Admin: 10/15/22 09:28 Dose: 3 ml Documented By: ELANA Trazodone HCl (Trazodone Hcl 50 Mg Tablet) 50 mg PO BEDTIME [facility] Labs 10/14/22 12:35 10/14/22 20:12 Labs: Laboratory Results - last 24 hr 10/14/22 10/14/22 10/14/22 15:51 20:12 22:20 Anion Gap 18 17 Estim Creat Clear Calc 10.3 9.8 Estimated GFR 10 9 POC Glucose Random Glucose 200 H 235 H Calcium 9.3 8.9 B-Natriuretic Peptide 409 H 10/15/22 10/15/22 10/15/22 07:04 11:01 15:25 Anion Gap Estim Creat Clear Calc Estimated GFR POC Glucose 241 H 174 H 95 Random Glucose Calcium B-Natriuretic Peptide Microbiology Microbiology Results: Microbiology 10/14/22 00:00 Urine Culture - Final Urine clean catch - Urine chery top Assessment and Plan (1) Nausea & vomiting: Status: Acute (2) Acute kidney injury superimposed on CKD: Status: Acute (3) Acute UTI: Status: Acute (4) Urinary tract infection due to ESBL Klebsiella: Status: Acute (5) Pneumonia: Status: Acute Plan 67-year-old female with past medical history of CKD, CHF, diabetes, CVA presents the hospital with complaints of nausea vomiting found to have multiple complications Macedonian-speaking, history is obtained with the help of an channel layer 1.Nausea/ vomiting/diarrhea - abdomen pelvic CT shows constipation and multiple abnormal findings suggestive of infection -bowel regimen - follow clinically 2. GIL on CKD w/hyperkalemia - CKD of stage 5, presents with worsening creatinine - IV fluid(NSS) -follow renals/divalents -renal consult 3.UTI - HX Klebsiella ESBL - emperical meropenem -follow cultures -infectious Disease consulted 4.Aaspiration pneumonia - NPO - Meropenem -speech consulted 5. HTN -acceptable control on current therapies -adjust as indicated 6.DM: - continue home insulin -lispro correctional scale -adjust as indicated - Heparin Full code Requires ongoing hospitalization for IV antibiotics to treat UTI aspiration pneumonia. Time Spent With Patient Time: Total time managing care of this patient today ____ minutes. Quality Stroke Does the patient have a stroke diagnosis?: No VTE Prior VTE?: No VTE Risk Level:: Medical - moderate - high VTE Device Contraindication: Treatment Not Indicated VTE Drug Contraindication: N/A - Med Ordered
[2022-10-15 19:36] LABS: Glucose, Whole Blood 89 mg/dL (60-115)
[2022-10-15 20:26] LABS: Alanine Aminotransferase 7 U/L (0-31); Albumin Level 3.2 g/dL (3.5-5.0); Alkaline Phosphatase 128 U/L (39-117); Anion Gap 16 (12-20); Aspartate Amino Transferase 9 U/L (5-31); Bilirubin Total 0.3 mg/dL (0.0-1.0); Blood Urea Nitrogen 58 mg/dL (9-16); Calcium 8.5 mg/dL (8.4-10.2); Carbon Dioxide 20 mmol/L (22-29); Chloride 112 mmol/L (96-108); Creatinine Clr Calc Pharmacy 11.8; Estimated Glomerular Filt Rate 11; Glucose Random 88 mg/dL (60-115); Potassium 5.9 mmol/L (3.3-5.1); Sodium 142 mmol/L (135-145); Total Protein 6.7 g/dL (6.5-8.0)
[2022-10-15] MEDS: Aspirin Enteric Coated 81 MG TABLET.DR PO (20:34)
--- NOTE | 2022-10-15 22:24 | PC.NURSE ---
serum potassium this evening was 5.9. DR Malave notified via [employer].
--- NOTE | 2022-10-15 23:27 | P.CNID_ITS ---
History of Present Illness Data of Consult Service Date: 10/15/22 Requesting physician: Parag Jarquin Primary Care Provider: Alexys Avila MD HPI Reason for consult: possible UTI She presents with nausea and vomiting for three days. She has no fever or chills. WBC is 11,000. She has left BKA. She has been voiding at home,no Bray. He has prior Klebsiella resistance urine. Review of Systems Review of Systems: Yes all other systems are reviewed and are negative [facility] Past Medical History Medical History Acute on chronic renal failure Acute worsening of stage 4 chronic kidney disease Anemia Blister of finger without infection Cardiomyopathy Cholecystectomy planned Chronic heart failure with preserved ejection fraction (HFpEF) Chronic kidney failure CKD (chronic kidney disease) CKD (chronic kidney disease) stage 3, GFR 30-59 ml/min CKD (chronic kidney disease) stage 4, GFR 15-29 ml/min CKD (chronic kidney disease) stage 5, GFR less than 15 ml/min CKD (chronic kidney disease), stage IV Congestive heart failure Diabetes Diabetes mellitus Elevated d-dimer Elevated troponin Essential hypertension Gastroparesis Generalized weakness GERD (gastroesophageal reflux disease) Hand pain Hernia HLD (hyperlipidemia) HTN (hypertension) Hypomagnesemia Irritable bowel syndrome with diarrhea Lightheadedness Low blood pressure Non-ST elevated myocardial infarction Nonischemic cardiomyopathy Normocytic anemia Other and unspecified hyperlipidemia Pharyngoesophageal dysphagia Type 2 diabetes mellitus with unspecified complications UTI (urinary tract infection) Family History Family History Father Lung cancer Mother Diabetes HTN (hypertension) Heart disease Sister Diabetes Heart disease Brother Heart disease Son Diabetes Daughter Diabetes Family history: reviewed and not pertinent Surgical History Surgical History H/O: hysterectomy History of esophagogastroduodenoscopy (EGD) Hx of colonoscopy Hx of eye surgery Social History Social History Household Members: Caregiver Household Members Other:: SNF Housing: Group Home Do you presently have visiting nurse or other home services: No Unable to assess alcohol history related to: Unknown Alcohol intake: never Patient Tobacco Use Status: Never used Tobacco Smoked in Last 30 Days: No Second Hand Smoke Exposure: No Use of substances other than those prescribed or required for medical reasons: No Currently Displaying Signs/Symptoms of Drug Intoxication Withdrawal: No Have you been hit, kicked, punched, or otherwise hurt by someone within the past year? If so, by whom?: No Do you feel safe in your current relationship?: No Current Relationship Is there a partner from a previous relationship who is making you feel unsafe now?: No Are you made to feel afraid or neglected: No Advance Directives: Yes Advance Directives on File: Yes Advance Directives Date on File: 02/02/22 Do you have thoughts of harming others: None Do you have a plan to hurt others: No Plan Recently lost weight without trying: Unsure How much weight loss: Unsure Eating poorly because of decreased appetite: Yes Nutrition screen score: 5 Nutrition Risks: Difficulty swallowing Patient : No : No Poor oral hygiene: No service: No Current occupational status: disabled Meds Allergies Allergy/AdvReac Type Severity Reaction Status Date / Time latex [LATEX] Allergy Intermediate ITCHY Verified 10/11/22 11:59 Active Medications: Current Medications Acetaminophen (Acetaminophen 325 Mg Tablet) 650 mg PO Q6H PRN PRN Reason: Pain, Mild (Pain Scale 1-3) Amlodipine Besylate (Amlodipine Besylate 10 Mg Tablet) 10 mg PO DAILY [facility]; Protocol Last Admin: 10/15/22 09:30 Dose: 10 mg Aspirin (Aspirin Enteric Coated 81 Mg Tablet.Dr) 81 mg PO BEDTIME [facility] Last Admin: 10/15/22 20:34 Dose: 81 mg Atorvastatin Calcium (Atorvastatin Calcium 80 Mg Tablet) 80 mg PO BEDTIME [facility] Last Admin: 10/15/22 20:35 Dose: Not Given Bisacodyl (Bisacodyl 10 Mg Supp.Rect) 10 mg [place] DAILY PRN PRN Reason: Constipation Calcium Carbonate/Cholecalciferol (Calcium + Vitamin D 250 Mg Tablet) 250 mg PO BID [facility] Last Admin: 10/15/22 20:35 Dose: Not Given Carvedilol (Carvedilol 6.25 Mg Tablet) 6.25 mg PO BID [facility]; Protocol Last Admin: 10/15/22 20:34 Dose: 6.25 mg Clopidogrel Bisulfate (Clopidogrel Bisulfate 75 Mg Tablet) 75 mg PO DAILY [facility] Last Admin: 10/15/22 09:26 Dose: 75 mg Albuterol Sulfate 2.5 mg/ (Ipratropium [place] 0.5 mg) 0 mg INHALE Q4H PRN PRN Reason: Wheezing Dextrose (Dextrose 50 % 25 Gm/50 Ml Syringe) 25 gm IVPUSH Q15M PRN; Protocol PRN Reason: per Hypoglycemia Standing Ord. Docusate Sodium (Docusate Sodium 100 Mg Capsule) 100 mg PO DAILY PRN PRN Reason: Constipation Famotidine (Famotidine 20 Mg Tablet) 20 mg PO Q2D@0900 [facility] Last Admin: 10/15/22 09:26 Dose: 20 mg Furosemide (Furosemide 40 Mg Tablet) 40 mg PO BIDWM [facility]; Protocol Last Admin: 10/15/22 17:37 Dose: 40 mg Glucose (Glucose Gel 15 Gm Gel..Gram.) 15 gm PO Q15M PRN; Protocol PRN Reason: per Hypoglycemia Standing Ord. Heparin Sodium (Porcine) (Heparin Sodium,Porcine 5,000 Unit/Ml Vial) 5,000 unit SUBCUT Q12H [facility] Last Admin: 10/15/22 20:36 Dose: 5,000 unit Sodium Chloride (Ns) 1,000 mls @ 100 mls/hr IVCONT .Q10H [facility] Last Admin: 10/15/22 20:35 Dose: 100 mls/hr Insulin Glargine (Insulin Glargine,Hum.Rec.Anlog 100 Unit/Ml 10 Ml Vial) 18 unit SUBCUT DAILY [facility] Last Admin: 10/15/22 09:37 Dose: 18 unit Insulin Human Lispro (Insulin Lispro 100 Unit/Ml 3 Ml Vial) 0 unit SUBCUT QIDACHS [facility]; Protocol Last Admin: 10/15/22 20:35 Dose: Not Given Magnesium Hydroxide (Milk Of Magnesia 30 Ml Oral.Susp) 30 ml PO BEDTIME PRN PRN Reason: constipation Magnesium Hydroxide (Milk Of Magnesia 30 Ml Oral.Susp) 30 ml PO DAILY PRN PRN Reason: Constipation Naloxone HCl (Naloxone Hcl 0.4 Mg/Ml Vial) 0.4 mg SUBCUT Q3M PRN PRN Reason: Opioid Overdose Ondansetron HCl (Ondansetron Hcl 4 Mg/2 Ml Vial) 4 mg IVPUSH Q8H PRN PRN Reason: Nausea and Vomiting Oxycodone HCl (Oxycodone Hcl Immed Release 5 Mg Tablet) 5 mg PO Q6H PRN PRN Reason: Pain, Severe (Pain Scale 7-10) Last Admin: 10/15/22 12:02 Dose: 5 mg Polyethylene Glycol (Polyethylene Glycol 3350 17 Gm Powd.Pack) 17 gm PO DAILY [facility] Last Admin: 10/15/22 09:27 Dose: 17 gm Sertraline HCl (Sertraline Hcl 50 Mg Tablet) 50 mg PO DAILY [facility] Last Admin: 10/15/22 09:27 Dose: 50 mg Sodium Bicarbonate (Sodium Bicarbonate 650 Mg Tablet) 650 mg PO BID [facility] Last Admin: 10/15/22 20:36 Dose: Not Given Sodium Biphosphate/Sodium Phosphate (Sodium Phosphate,Pratt-Dibasic 133 Ml Enema) 118 ml [place] DAILY PRN PRN Reason: Constipation Sodium Chloride (0.9 % Sodium Chloride Flush 3 Ml Syringe) 3 ml IVFLUSH QSHIFT [facility] Last Admin: 10/15/22 17:37 Dose: Not Given Trazodone HCl (Trazodone Hcl 50 Mg Tablet) 50 mg PO BEDTIME [facility] Last Admin: 10/15/22 20:36 Dose: Not Given Home Medications Medication Instructions Recorded Confirmed Last Taken Type aspirin 81 mg tablet,delayed 81 mg PO BEDTIME 06/20/21 10/14/22 10/14/22 History release atorvastatin 80 mg tablet 80 mg PO BEDTIME 06/20/21 10/14/22 10/13/22 History calcium carbonate 600 mg-vitamin 1 tab PO BID 06/20/21 10/14/22 10/14/22 History D3 10 mcg (400 unit) tablet clopidogrel 75 mg tablet 75 mg PO DAILY 06/20/21 10/14/22 10/13/22 History magnesium oxide 400 mg (241.3 mg 400 mg PO BID 06/20/21 10/14/22 10/14/22 History magnesium) tablet sertraline 50 mg tablet 50 mg PO DAILY 06/20/21 10/14/22 10/14/22 History trazodone 50 mg tablet 50 mg PO BEDTIME 06/20/21 10/14/22 10/13/22 History insulin glargine 100 unit/mL (3 18 unit subcut DAILY 03/25/22 10/14/22 10/14/22 History mL) subcutaneous pen (Lantus Solostar U-100 Insulin) ipratropium 0.5 mg-albuterol 3 mg 3 ml inhalation Q4H PRN Wheezing 05/05/22 10/14/22 Unknown History (2.5 mg base)/3 mL nebulization soln furosemide 40 mg tablet (Lasix) 40 mg PO BIDWM 10/14/22 10/14/22 10/14/22 History insulin lispro 100 unit/mL See Protocol subcut QIDACHS 10/14/22 10/14/22 10/14/22 History subcutaneous solution (Humalog U-100 Insulin) acetaminophen 500 mg tablet 1,000 mg PO Q6H PRN Fever Or Pain 10/15/22 10/15/22 Unknown History bisacodyl 10 mg rectal suppository 10 mg [place] DAILY PRN Constipation 10/15/22 10/15/22 Unknown History magnesium hydroxide 400 mg/5 mL 30 ml PO DAILY PRN Constipation 10/15/22 10/15/22 Unknown History oral suspension (Milk of Magnesia) naloxone 0.4 mg/mL injection 0.4 mg subcut Q3M PRN Opioid 10/15/22 10/15/22 Unknown History solution Overdose sodium phosphates 19 gram-7 118 ml [place] DAILY PRN Constipation 10/15/22 10/15/22 Unknown History gram/118 mL enema (Fleet Enema) Physical Exam Vital Signs: Vital Signs: Last Vital Signs Temp 98.0 F 10/15/22 19:36 Pulse 77 10/15/22 19:36 Resp 19 10/15/22 15:29 BP 140/64 H 10/15/22 19:36 Pulse Ox 94 10/15/22 19:36 O2 Del Method 10/15/22 19:36 BMI result Body Mass Index 33.1 Const: General: cooperative HEENT: Head: Yes normal to inspection Face and sinus: Yes normal facial exam Mouth: Normal oral and palatal mucosa present Teeth and gingiva: dentition normal Eyes: General: appearance normal, both eyes and all related structures Pupils: Equal, round and reactive pupils present Resp: Effort & Inspection: normal respiratory effort Cardio: Rate: regular rate Rhythm: regular rhythm GI: Palpation (GI): Soft to palpation and nontender : General: Yes no CVA tenderness Back/Spine/Pelvis: Back: no CVA tenderness Skin: General skin exam: no rashes or lesions noted Neuro: General: moves all extremities Cranial nerves: Yes Equal, round and reactive pupils present Extrem: Other: left BKA Psych: Appearance: grossly normal Results Labs 10/14/22 12:35 10/15/22 19:52 Labs: BMP 10/15/22 19:52 Sodium 142 Potassium 5.9 H Chloride 112 H Carbon Dioxide 20 L BUN 58 H Creatinine 3.94 H Calcium 8.5 Liver Function 10/15/22 Range/Units 19:52 Total Bilirubin 0.3 (0.0-1.0) mg/dL AST 9 (5-31) U/L ALT 7 (0-31) U/L Alkaline Phosphatase 128 H (39-117) U/L Albumin 3.2 L (3.5-5.0) g/dL Microbiology Microbiology Results: Microbiology 10/14/22 20:12 Blood - Venous Blood Culture - Preliminary No growth after 24 hours. 10/14/22 20:12 Blood - Venous Blood Culture - Preliminary No growth after 24 hours. 10/14/22 00:00 Urine clean catch - Urine chery top Urine Culture - Final Assessment and Plan (1) Nausea & vomiting: Status: Acute There is no definitive urinary infection. She has no specific organism. There is only patchy not lobar infiltrates. (2) Acute hyperkalemia: Status: Acute (3) Acute kidney injury superimposed on CKD: Status: Acute Plan Hold antibiotics unless there is definite signs of bacterial pneumonia with hypoxia. Await blood cultures. Time Spent With Patient Time: Total time managing care of this patient today ____ minutes.
[2022-10-16 01:00] LABS: Anion Gap 17 (12-20); Blood Urea Nitrogen 55 mg/dL (9-16); Calcium 8.7 mg/dL (8.4-10.2); Carbon Dioxide 18 mmol/L (22-29); Chloride 111 mmol/L (96-108); Creatinine Clr Calc Pharmacy 12.2; Estimated Glomerular Filt Rate 12; Glucose Random 76 mg/dL (60-115); Potassium 5.7 mmol/L (3.3-5.1); Sodium 140 mmol/L (135-145)
[2022-10-16 03:19] VITALS: BP 132/65; PULSE 69; RESP 20; TEMP 37.2; O2SAT 97
[2022-10-16] MEDS: 0.9 % Sodium Chloride 1,000 ML 100 ML IVCONT (05:56)
[2022-10-16 06:56] VITALS: BP 132/58; PULSE 82; RESP 20; TEMP 36.7; O2SAT 95
[2022-10-16 07:29] LABS: Glucose, Whole Blood 81 mg/dL (60-115)
--- NOTE | 2022-10-16 08:39 | P.PNNP_ITS ---
Subjective Subjective Date of Service: 10/16/22 Interval history: seen and examined no complaints except for diffuse pain Physical Exam Vital Signs: Vital Signs: Last Vital Signs Temp 98.1 F 10/16/22 06:56 Pulse 82 10/16/22 06:56 Resp 20 10/16/22 06:56 BP 132/58 L 10/16/22 06:56 Pulse Ox 95 10/16/22 06:56 O2 Del Method 10/16/22 06:56 BMI result Body Mass Index 33.1 Const: General: no acute distress HEENT: Head: Yes normocephalic and Yes atraumatic Neck: Neck: Yes supple Resp: Auscultation: diminished lung sounds Cardio: Heart sounds: S1 normal heart sound present and S2 normal heart sound present GI: Palpation (GI): Soft to palpation and nontender Extrem: General: No clubbing and No cyanosis Objective Data Labs 10/14/22 12:35 10/16/22 00:20 Labs: Laboratory Results - last 24 hr 10/15/22 10/15/22 10/15/22 11:01 15:25 19:32 Sodium Potassium Chloride Carbon Dioxide Anion Gap BUN Creatinine Estim Creat Clear Calc Estimated GFR POC Glucose 174 H 95 89 Random Glucose Calcium Total Bilirubin AST ALT Alkaline Phosphatase Total Protein Albumin 10/15/22 10/16/22 10/16/22 19:52 00:20 06:59 Sodium 142 140 Potassium 5.9 H 5.7 H Chloride 112 H 111 H Carbon Dioxide 20 L 18 L Anion Gap 16 17 BUN 58 H 55 H Creatinine 3.94 H 3.83 H Estim Creat Clear Calc 11.8 12.2 Estimated GFR 11 12 POC Glucose 81 Random Glucose 88 76 Calcium 8.5 8.7 Total Bilirubin 0.3 AST 9 ALT 7 Alkaline Phosphatase 128 H Total Protein 6.7 Albumin 3.2 L Microbiology Microbiology Results: Microbiology 10/14/22 20:12 Blood - Venous Blood Culture - Preliminary No growth after 24 hours. 10/14/22 20:12 Blood - Venous Blood Culture - Preliminary No growth after 24 hours. 10/14/22 00:00 Urine clean catch - Urine chery top Urine Culture - Final Procedures Date of Service Date of Service: 10/16/22 Assessment & Plan Assessment and plan (1) GIL (acute kidney injury): Status: Acute (2) Hyperkalemia: Status: Acute (3) Metabolic acidosis: Status: Acute (4) Anemia: Status: Acute (5) CKD (chronic kidney disease) stage 5, GFR less than 15 ml/min: Status: Acute Plan kidney function at baseline GIL superimposed on advanced CKD probably renal hypoperfusion given clinical presentation known advanced CKD due to DM/HTN baseline Scr ~ 3.5-4 mg/dl elevated serum potassium due to decreased distal flow anemia due to CKD REC no need for further IVF sodium zirconium 10 g x 1 c/w NaHCO3 orally protect non dominant arm no indication for STATE [employer] follow kidney function and electrolytes Time Spent With Patient Time: Total time managing care of this patient today ____ minutes. Progress Note: Quality Stroke Does the patient have a stroke diagnosis?: No
[2022-10-16] MEDS: amLODIPine Besylate 10 MG TABLET PO (10:05)
[2022-10-16] MEDS: carvediloL 6.25 MG TABLET PO ×2 (10:05→20:35)
[2022-10-16] MEDS: polyethylene glycoL 3350 17 GM POWD.PACK PO (10:05)
[2022-10-16] MEDS: Clopidogrel Bisulfate 75 MG TABLET PO (10:06)
[2022-10-16] MEDS: Heparin Sodium,Porcine 5,000 UNIT/ML VIAL 5000 UNIT SUBCUT ×2 (10:06→21:47)
[2022-10-16] MEDS: Sertraline HCL 50 MG TABLET PO (10:06)
[2022-10-16] MEDS: Calcium + Vitamin D 250 MG TABLET PO ×2 (10:06→20:36)
[2022-10-16] MEDS: Furosemide 40 MG TABLET PO ×2 (10:07→16:29)
[2022-10-16] MEDS: Sodium Zirconium Cyclosilicate 10 GM POWD.PACK PO (10:17)
[2022-10-16] MEDS: Sodium Bicarbonate 650 MG TABLET PO ×3 (10:18→20:36)
[2022-10-16] MEDS: 0.9 % Sodium Chloride Flush 3 ML SYRINGE IVFLUSH ×3 (10:18→21:50)
[2022-10-16 10:43] VITALS: BP 154/66; PULSE 79; RESP 20; TEMP 37; O2SAT 97
[2022-10-16 10:51] LABS: Glucose, Whole Blood 129 mg/dL (60-115)
--- NOTE | 2022-10-16 12:38 | HO.PM.IMPN ---
Subjective Subjective Date of Service: 10/16/22 Interval History: All information via supply chain planner; feels markedly improved since admission. No acute issues Review of Systems Via supply chain planner Denies chest pain Denies shortness of breath Denies nausea vomiting diarrhea Physical Exam Vital Signs: Vital Signs: Last Vital Signs Temp 98.6 F 10/16/22 10:43 Pulse 79 10/16/22 10:43 Resp 20 10/16/22 10:43 BP 154/66 H 10/16/22 10:43 Pulse Ox 97 10/16/22 10:43 O2 Del Method 10/16/22 10:43 BMI result Body Mass Index 33.1 Const: Other: awake alert no acute distress Resp: Other: Clear to auscultation bilaterally no rales rhonchi or wheezes Cardio: Other: No S4; positive S1-S2; no S3 murmurs rubs gallops GI: Other: Soft nontender nondistended normoactive bowel sounds Extrem: Other: No edema bilaterally Objective Data Active Medications Acetaminophen (Acetaminophen 325 Mg Tablet) 650 mg PO Q6H PRN PRN Reason: Pain, Mild (Pain Scale 1-3) Amlodipine Besylate (Amlodipine Besylate 10 Mg Tablet) 10 mg PO DAILY [facility]; Protocol Last Admin: 10/16/22 10:05 Dose: 10 mg Documented By: ELANA Aspirin (Aspirin Enteric Coated 81 Mg Tablet.Dr) 81 mg PO BEDTIME [facility] Last Admin: 10/15/22 20:34 Dose: 81 mg Documented By: RICARDO Atorvastatin Calcium (Atorvastatin Calcium 80 Mg Tablet) 80 mg PO BEDTIME [facility] Last Admin: 10/15/22 20:35 Dose: Not Given Documented By: RICARDO Non-Admin Reason: NPO Bisacodyl (Bisacodyl 10 Mg Supp.Rect) 10 mg PA DAILY PRN PRN Reason: Constipation Calcium Carbonate/Cholecalciferol (Calcium + Vitamin D 250 Mg Tablet) 250 mg PO BID [facility] Last Admin: 10/16/22 10:06 Dose: 250 mg Documented By: ELANA Carvedilol (Carvedilol 6.25 Mg Tablet) 6.25 mg PO BID [facility]; Protocol Last Admin: 10/16/22 10:05 Dose: 6.25 mg Documented By: ELANA Clopidogrel Bisulfate (Clopidogrel Bisulfate 75 Mg Tablet) 75 mg PO DAILY [facility] Last Admin: 10/16/22 10:06 Dose: 75 mg Documented By: ELANA Albuterol Sulfate 2.5 mg/ (Ipratropium [place] 0.5 mg) 0 mg INHALE Q4H PRN PRN Reason: Wheezing Dextrose (Dextrose 50 % 25 Gm/50 Ml Syringe) 25 gm IVPUSH Q15M PRN; Protocol PRN Reason: per Hypoglycemia Standing Ord. Docusate Sodium (Docusate Sodium 100 Mg Capsule) 100 mg PO DAILY PRN PRN Reason: Constipation Famotidine (Famotidine 20 Mg Tablet) 20 mg PO Q2D@0900 [facility] Last Admin: 10/15/22 09:26 Dose: 20 mg Documented By: ELANA Furosemide (Furosemide 40 Mg Tablet) 40 mg PO BIDWM [facility]; Protocol Last Admin: 10/16/22 10:07 Dose: 40 mg Documented By: ELANA Glucose (Glucose Gel 15 Gm Gel..Gram.) 15 gm PO Q15M PRN; Protocol PRN Reason: per Hypoglycemia Standing Ord. Heparin Sodium (Porcine) (Heparin Sodium,Porcine 5,000 Unit/Ml Vial) 5,000 unit SUBCUT Q12H [facility] Last Admin: 10/16/22 10:06 Dose: 5,000 unit Documented By: ELANA Sodium Chloride (Ns) 1,000 mls @ 100 mls/hr IVCONT .Q10H [facility] Last Admin: 10/16/22 05:56 Dose: 100 mls/hr Documented By: COSME-MANDI Insulin Glargine (Insulin Glargine,Hum.Rec.Anlog 100 Unit/Ml 10 Ml Vial) 18 unit SUBCUT DAILY [facility] Last Admin: 10/16/22 10:06 Dose: Not Given Documented By: ELANA Non-Admin Reason: NPO Insulin Human Lispro (Insulin Lispro 100 Unit/Ml 3 Ml Vial) 0 unit SUBCUT QIDACHS [facility]; Protocol Last Admin: 10/16/22 11:26 Dose: Not Given Documented By: ELANA Non-Admin Reason: No Insulin Coverage Magnesium Hydroxide (Milk Of Magnesia 30 Ml Oral.Susp) 30 ml PO BEDTIME PRN PRN Reason: constipation Magnesium Hydroxide (Milk Of Magnesia 30 Ml Oral.Susp) 30 ml PO DAILY PRN PRN Reason: Constipation Naloxone HCl (Naloxone Hcl 0.4 Mg/Ml Vial) 0.4 mg SUBCUT Q3M PRN PRN Reason: Opioid Overdose Ondansetron HCl (Ondansetron Hcl 4 Mg/2 Ml Vial) 4 mg IVPUSH Q8H PRN PRN Reason: Nausea and Vomiting Oxycodone HCl (Oxycodone Hcl Immed Release 5 Mg Tablet) 5 mg PO Q6H PRN PRN Reason: Pain, Severe (Pain Scale 7-10) Last Admin: 10/15/22 12:02 Dose: 5 mg Documented By: ELANA Polyethylene Glycol (Polyethylene Glycol 3350 17 Gm Powd.Pack) 17 gm PO DAILY [facility] Last Admin: 10/16/22 10:05 Dose: 17 gm Documented By: ELANA Sertraline HCl (Sertraline Hcl 50 Mg Tablet) 50 mg PO DAILY [facility] Last Admin: 10/16/22 10:06 Dose: 50 mg Documented By: ELANA Sodium Bicarbonate (Sodium Bicarbonate 650 Mg Tablet) 650 mg PO TID [facility] Last Admin: 10/16/22 10:18 Dose: 650 mg Documented By: ELANA Sodium Biphosphate/Sodium Phosphate (Sodium Phosphate,Searcy-Dibasic 133 Ml Enema) 118 ml PA DAILY PRN PRN Reason: Constipation Sodium Chloride (0.9 % Sodium Chloride Flush 3 Ml Syringe) 3 ml IVFLUSH QSHIFT [facility] Last Admin: 10/16/22 10:18 Dose: 3 ml Documented By: ELANA Trazodone HCl (Trazodone Hcl 50 Mg Tablet) 50 mg PO BEDTIME [facility] Last Admin: 10/15/22 20:36 Dose: Not Given Documented By: RICARDO Non-Admin Reason: NPO Labs 10/14/22 12:35 10/16/22 00:20 Labs: Laboratory Results - last 24 hr 10/15/22 10/15/22 10/15/22 15:25 19:32 19:52 Anion Gap 16 Estim Creat Clear Calc 11.8 Estimated GFR 11 POC Glucose 95 89 Random Glucose 88 Calcium 8.5 Total Bilirubin 0.3 AST 9 ALT 7 Alkaline Phosphatase 128 H Total Protein 6.7 Albumin 3.2 L 10/16/22 10/16/22 10/16/22 00:20 06:59 10:46 Anion Gap 17 Estim Creat Clear Calc 12.2 Estimated GFR 12 POC Glucose 81 129 H Random Glucose 76 Calcium 8.7 Total Bilirubin AST ALT Alkaline Phosphatase Total Protein Albumin Microbiology Microbiology Results: Microbiology 10/14/22 20:12 Blood Culture - Preliminary Blood - Venous No growth after 24 hours. 10/14/22 20:12 Blood Culture - Preliminary Blood - Venous No growth after 24 hours. 10/14/22 00:00 Urine Culture - Final Urine clean catch - Urine chery top Assessment and Plan (1) Nausea & vomiting: Status: Acute (2) GIL (acute kidney injury): Status: Acute (3) CKD (chronic kidney disease) stage 5, GFR less than 15 ml/min: Status: Acute Plan 67-year-old female with past medical history of CKD, CHF, diabetes, CVA presents the hospital with complaints of nausea vomiting found to have multiple complications Fijian-speaking, history is obtained with the help of an supply chain planner 1.Nausea/ vomiting/diarrhea - improved -bowel regimen -follow clinically 2. GIL on CKD w/hyperkalemia - CKD stage 5.. Refuses dialysis -d/c IV fluid(NSS) -follow renals/divalents 3.UTI -multiple organisms -as per ID; DC meropenem 4.Aspiration pneumonia -nurse eval without issue -restart diet 5. HTN -acceptable control on current therapies -adjust as indicated 6.DM: - continue home insulin -lispro correctional scale -adjust as indicated - Heparin Full code Requires ongoing hospitalization for IV antibiotics to treat UTI aspiration pneumonia. Time Spent With Patient Time: Total time managing care of this patient today ____ minutes. Quality Stroke Does the patient have a stroke diagnosis?: No VTE Prior VTE?: No VTE Risk Level:: Medical - moderate - high VTE Device Contraindication: Treatment Not Indicated VTE Drug Contraindication: N/A - Med Ordered
--- NOTE | 2022-10-16 14:29 | MHC.CM.PN ---
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
[2022-10-16 14:56] LABS: CDiff Gene PCR NEGATIVE (Negative)
[2022-10-16 15:23] LABS: Campylobacter Not Detected (Not Detect.); E. coli EAEC Not Detected (Not Detect.); E. coli EPEC Not Detected (Not Detect.); E. coli ETEC Not Detected (Not Detect.); E. coli STEC Not Detected (Not Detect.); Plesiomonas shigelloides Not Detected (Not Detect.); Salmonella Not Detected (Not Detect.); Vibrio Not Detected (Not Detect.); Vibrio Cholerae Not Detected (Not Detect.); Yersinia enterocolitica Not Detected (Not Detect.)
[2022-10-16 15:24] LABS: Adenovirus F 40/41 Not Detected (Not Detect.); Astrovirus Not Detected (Not Detect.); Cryptosporidium Not Detected (Not Detect.); Cyclospora cayetanensis Not Detected (Not Detect.); Entamoeba histolytica Not Detected (Not Detect.); Giardia lamblia Not Detected (Not Detect.); Norovirus GI/GII Not Detected (Not Detect.); Rotavirus A Not Detected (Not Detect.); Sapovirus Not Detected (Not Detect.); Shigella sp./EIEC Not Detected (Not Detect.)
[2022-10-16 15:31] LABS: Glucose, Whole Blood 144 mg/dL (60-115)
[2022-10-16 15:48] VITALS: BP 124/69; PULSE 76; RESP 18; TEMP 36.4; O2SAT 96
[2022-10-16 20:00] VITALS: BP 122/60; PULSE 80; RESP 18; TEMP 36.4; O2SAT 94
[2022-10-16] MEDS: Atorvastatin Calcium 80 MG TABLET PO (20:35)
[2022-10-16] MEDS: traZODone HCL 50 MG TABLET PO (20:35)
[2022-10-16] MEDS: Aspirin Enteric Coated 81 MG TABLET.DR PO (20:35)
[2022-10-16 20:51] LABS: Glucose, Whole Blood 190 mg/dL (60-115)
[2022-10-16] MEDS: Insulin Lispro 100 UNIT/ML 3 ML VIAL SUBCUT (21:48)
[2022-10-16 23:59] VITALS: BP 105/60; PULSE 94; RESP 20; TEMP 36.4; O2SAT 94
[2022-10-17 04:00] VITALS: BP 148/64; PULSE 67; RESP 20; TEMP 36.8; O2SAT 94
[2022-10-17 06:16] LABS: MANUAL DIFF FLAG NO
[2022-10-17 06:20] LABS: Basophils Percent Auto 0.4 % (0-2); Eosinophils Absolute Auto 0.5 X10*3/uL (0.0-0.4); Eosinophils Percent Auto 6.1 % (0-4); Hematocrit 30.3 % (37.0-47.0); Hemoglobin 9.4 g/dl (12.0-16.0); Imm Gran Abs Auto 0.03 X10*3/uL (0.00-0.03); Imm Gran Pct Auto 0.4 % (0.0-0.4); Lymphocytes Percent Auto 25.2 % (20-40); Mean Corpuscular Hemoglobin 26.1 pg (27.0-33.0); Mean Corpuscular Volume 84.2 fL (80.0-98.0); Mean Platelet Volume 10.4 fL (9.4-12.3); Monocytes Absolute Auto 0.6 X10*3/uL (0.1-1.2); Monocytes Percent Auto 7.9 % (2-11); Neutrophils Absolute Auto 4.7 x10*3/uL (2.0-8.3); Platelet Count 224 X10*3/uL (160-400); Red Cell Distribution Width 13.9 % (11.0-16.0); White Blood Count 7.8 X10*3/uL (4.8-10.8)
[2022-10-17 06:39] LABS: Alanine Aminotransferase 7 U/L (0-31); Albumin Level 3.4 g/dL (3.5-5.0); Alkaline Phosphatase 122 U/L (39-117); Anion Gap 14 (12-20); Aspartate Amino Transferase 12 U/L (5-31); Bilirubin Total 0.3 mg/dL (0.0-1.0); Blood Urea Nitrogen 44 mg/dL (9-16); Calcium 8.9 mg/dL (8.4-10.2); Carbon Dioxide 21 mmol/L (22-29); Chloride 111 mmol/L (96-108); Estimated Glomerular Filt Rate 13; Glucose Fasting 148 mg/dL (60-99); Potassium 5.5 mmol/L (3.3-5.1); Sodium 140 mmol/L (135-145)
[2022-10-17 07:19] VITALS: BP 162/69; PULSE 69; RESP 20; TEMP 36.9; O2SAT 98
[2022-10-17 07:56] LABS: Glucose, Whole Blood 138 mg/dL (60-115)
[2022-10-17] MEDS: 0.9 % Sodium Chloride Flush 3 ML SYRINGE IVFLUSH ×3 (08:10→23:38)
[2022-10-17] MEDS: Sertraline HCL 50 MG TABLET PO (08:18)
[2022-10-17] MEDS: polyethylene glycoL 3350 17 GM POWD.PACK PO (08:18)
[2022-10-17] MEDS: amLODIPine Besylate 10 MG TABLET PO (08:18)
[2022-10-17] MEDS: Clopidogrel Bisulfate 75 MG TABLET PO (08:18)
[2022-10-17] MEDS: carvediloL 6.25 MG TABLET PO ×2 (08:18→19:58)
[2022-10-17] MEDS: Sodium Bicarbonate 650 MG TABLET PO ×3 (08:19→19:58)
[2022-10-17] MEDS: Furosemide 40 MG TABLET PO ×2 (08:19→16:49)
[2022-10-17] MEDS: Famotidine 20 MG TABLET PO (08:19)
[2022-10-17] MEDS: Heparin Sodium,Porcine 5,000 UNIT/ML VIAL 5000 UNIT SUBCUT ×2 (08:19→22:36)
[2022-10-17] MEDS: Calcium + Vitamin D 250 MG TABLET PO ×2 (08:19→19:58)
[2022-10-17] MEDS: Insulin Glargine,Hum.rec.anlog 100 UNIT/ML 10 ML VIAL 18 UNIT SUBCUT (08:19)
--- NOTE | 2022-10-17 09:15 | PM.PNNEP ---
Subjective Subjective Date of Service: 10/17/22 Interval history: seen and examined doing well no complaints Physical Exam Vital Signs: Vital Signs: Last Vital Signs Temp 98.4 F 10/17/22 07:19 Pulse 69 10/17/22 07:19 Resp 20 10/17/22 07:19 BP 162/69 H 10/17/22 07:19 Pulse Ox 98 10/17/22 07:19 O2 Del Method 10/17/22 07:19 BMI result Body Mass Index 33.1 Const: General: no acute distress HEENT: Head: Yes normocephalic and Yes atraumatic Neck: Neck: Yes supple Resp: Auscultation: diminished lung sounds Cardio: Heart sounds: S1 normal heart sound present and S2 normal heart sound present GI: Palpation (GI): Soft to palpation and nontender Extrem: General: No clubbing and No cyanosis Objective Data Labs 10/17/22 06:06 10/17/22 06:06 Labs: Laboratory Results - last 24 hr 10/16/22 10/16/22 10/16/22 10:46 13:30 13:30 WBC RBC Hgb Hct MCV MCH MCHC RDW Plt Count MPV Immature Gran % (Auto) Neut % (Auto) Lymph % (Auto) [place] % (Auto) Eos % (Auto) Baso % (Auto) Lymph # (Auto) [place] # (Auto) Eos # (Auto) Baso # (Auto) Abs Immat Gran (auto) Absolute Neuts (auto) Absolute Nucleated RBC Nucleated RBC % (auto) Sodium Potassium Chloride Carbon Dioxide Anion Gap BUN Creatinine Estim Creat Clear Calc Estimated GFR POC Glucose 129 H Fasting Glucose Calcium Total Bilirubin AST ALT Alkaline Phosphatase Total Protein Albumin Stl C. cayetanensis PCR Not Detected Stool Rotavirus A PCR Not Detected Stl Adenov F 40/41 PCR Not Detected Stool Astrovirus (PCR) Not Detected Stool Campylobacter PCR Not Detected Stool Cryptosporidium PCR Not Detected Stl Sh Tox Pr E STEC PCR Not Detected Stool E coli O157 PCR Not applicable Stl Enterotoxigenic E PCR Not Detected Stool EPEC (PCR) Not Detected Stool EAEC (PCR) Not Detected Stl E. histolytica PCR Not Detected Stool Giardia Lamblia PCR Not Detected Stl P. shigelloides PCR Not Detected Stool Salmonella PCR Not Detected Stool Sapovirus (PCR) Not Detected Stl Shigella/EIEC PCR Not Detected St Y.enterocolitica PCR Not Detected Stool Vibrio (PCR) Not Detected Stl Vibrio cholerae PCR Not Detected Stl Norovirus GI/GII PCR Not Detected C. difficile Tox B Gene NEGATIVE 10/16/22 10/16/22 10/17/22 15:12 20:29 06:06 WBC 7.8 RBC 3.60 L Hgb 9.4 L Hct 30.3 L MCV 84.2 MCH 26.1 L MCHC 31.0 RDW 13.9 Plt Count 224 MPV 10.4 Immature Gran % (Auto) 0.4 Neut % (Auto) 60.0 Lymph % (Auto) 25.2 [place] % (Auto) 7.9 Eos % (Auto) 6.1 H Baso % (Auto) 0.4 Lymph # (Auto) 2.0 [place] # (Auto) 0.6 Eos # (Auto) 0.5 H Baso # (Auto) 0.0 Abs Immat Gran (auto) 0.03 Absolute Neuts (auto) 4.7 Absolute Nucleated RBC 0.000 Nucleated RBC % (auto) 0.0 Sodium Potassium Chloride Carbon Dioxide Anion Gap BUN Creatinine Estim Creat Clear Calc Estimated GFR POC Glucose 144 H 190 H Fasting Glucose Calcium Total Bilirubin AST ALT Alkaline Phosphatase Total Protein Albumin Stl C. cayetanensis PCR Stool Rotavirus A PCR Stl Adenov F 40/41 PCR Stool Astrovirus (PCR) Stool Campylobacter PCR Stool Cryptosporidium PCR Stl Sh Tox Pr E STEC PCR Stool E coli O157 PCR Stl Enterotoxigenic E PCR Stool EPEC (PCR) Stool EAEC (PCR) Stl E. histolytica PCR Stool Giardia Lamblia PCR Stl P. shigelloides PCR Stool Salmonella PCR Stool Sapovirus (PCR) Stl Shigella/EIEC PCR St Y.enterocolitica PCR Stool Vibrio (PCR) Stl Vibrio cholerae PCR Stl Norovirus GI/GII PCR C. difficile Tox B Gene 10/17/22 10/17/22 06:06 07:46 WBC RBC Hgb Hct MCV MCH MCHC RDW Plt Count MPV Immature Gran % (Auto) Neut % (Auto) Lymph % (Auto) [place] % (Auto) Eos % (Auto) Baso % (Auto) Lymph # (Auto) [place] # (Auto) Eos # (Auto) Baso # (Auto) Abs Immat Gran (auto) Absolute Neuts (auto) Absolute Nucleated RBC Nucleated RBC % (auto) Sodium 140 Potassium 5.5 H Chloride 111 H Carbon Dioxide 21 L Anion Gap 14 BUN 44 H Creatinine 3.59 H Estim Creat Clear Calc 13.0 Estimated GFR 13 POC Glucose 138 H Fasting Glucose 148 H Calcium 8.9 Total Bilirubin 0.3 AST 12 ALT 7 Alkaline Phosphatase 122 H Total Protein 7.0 Albumin 3.4 L Stl C. cayetanensis PCR Stool Rotavirus A PCR Stl Adenov F 40/41 PCR Stool Astrovirus (PCR) Stool Campylobacter PCR Stool Cryptosporidium PCR Stl Sh Tox Pr E STEC PCR Stool E coli O157 PCR Stl Enterotoxigenic E PCR Stool EPEC (PCR) Stool EAEC (PCR) Stl E. histolytica PCR Stool Giardia Lamblia PCR Stl P. shigelloides PCR Stool Salmonella PCR Stool Sapovirus (PCR) Stl Shigella/EIEC PCR St Y.enterocolitica PCR Stool Vibrio (PCR) Stl Vibrio cholerae PCR Stl Norovirus GI/GII PCR C. difficile Tox B Gene Microbiology Microbiology Results: Microbiology 10/14/22 20:12 Blood - Venous Blood Culture - Preliminary No growth after 48 hours. 10/14/22 20:12 Blood - Venous Blood Culture - Preliminary No growth after 48 hours. 10/14/22 00:00 Urine clean catch - Urine chery top Urine Culture - Final Procedures Date of Service Date of Service: 10/17/22 Assessment & Plan Assessment and plan (1) GIL (acute kidney injury): Status: Acute (2) Hyperkalemia: Status: Acute (3) Metabolic acidosis: Status: Acute (4) Anemia: Status: Acute (5) CKD (chronic kidney disease) stage 5, GFR less than 15 ml/min: Status: Acute Plan kidney function at baseline GIL superimposed on advanced CKD resolved probably renal hypoperfusion given clinical presentation known advanced CKD due to DM/HTN baseline Scr ~ 3.5-4 mg/dl elevated serum potassium due to decreased distal flow anemia due to CKD REC sodium zirconium 10 g x 1 c/w NaHCO3 orally protect non dominant arm no indication for THERMOSTAT MAKER follow kidney function and electrolytes Time Spent With Patient Time: Total time managing care of this patient today ____ minutes. Progress Note: Quality Stroke Does the patient have a stroke diagnosis?: No
[2022-10-17 09:17] LABS: Procalcitonin 0.07 ng/mL
[2022-10-17] MEDS: Sodium Zirconium Cyclosilicate 10 GM POWD.PACK PO (10:35)
[2022-10-17 10:46] VITALS: BP 131/62; PULSE 71; RESP 20; TEMP 36.9; O2SAT 98
[2022-10-17 11:22] LABS: Glucose, Whole Blood 238 mg/dL (60-115)
--- NOTE | 2022-10-17 11:51 | P.PNIM_ITS ---
Subjective Subjective Date of Service: 10/17/22 Interval History: This history was taken in Estonian from the patient. N/V/D resolved no abd pain K still high Review of Systems Review of Systems: Yes all other systems are reviewed and are negative Physical Exam Vital Signs: Vital Signs: Last Vital Signs Temp 98.4 F 10/17/22 10:46 Pulse 71 10/17/22 10:46 Resp 20 10/17/22 10:46 BP 131/62 10/17/22 10:46 Pulse Ox 98 10/17/22 10:46 O2 Del Method 10/17/22 10:46 BMI result Body Mass Index 33.1 Gen: in no acute distress HEENT: sclera anicteric, moist mucus membranes Neck: supple Lungs: clear to auscultation bilaterally Heart: regular rate and rhythm, no murmurs Abd: soft, non-tender, non-distended Ext: no edema Skin: warm/well-perfused Neuro: alert and oriented x3, no focal findings Psych: appropriate affect Objective Data Active Medications Acetaminophen (Acetaminophen 325 Mg Tablet) 650 mg PO Q6H PRN PRN Reason: Pain, Mild (Pain Scale 1-3) Amlodipine Besylate (Amlodipine Besylate 10 Mg Tablet) 10 mg PO DAILY [facility]; Protocol Last Admin: 10/17/22 08:18 Dose: 10 mg Documented By: NAVYA Aspirin (Aspirin Enteric Coated 81 Mg Tablet.Dr) 81 mg PO BEDTIME [facility] Last Admin: 10/16/22 20:35 Dose: 81 mg Documented By: DIANE Atorvastatin Calcium (Atorvastatin Calcium 80 Mg Tablet) 80 mg PO BEDTIME [facility] Last Admin: 10/16/22 20:35 Dose: 80 mg Documented By: DIANE Bisacodyl (Bisacodyl 10 Mg Supp.Rect) [address] DAILY PRN PRN Reason: Constipation Calcium Carbonate/Cholecalciferol (Calcium + Vitamin D 250 Mg Tablet) 250 mg PO BID [facility] Last Admin: 10/17/22 08:19 Dose: 250 mg Documented By: NAVYA Carvedilol (Carvedilol 6.25 Mg Tablet) 6.25 mg PO BID [facility]; Protocol Last Admin: 10/17/22 08:18 Dose: 6.25 mg Documented By: NAVYA Clopidogrel Bisulfate (Clopidogrel Bisulfate 75 Mg Tablet) 75 mg PO DAILY [facility] Last Admin: 10/17/22 08:18 Dose: 75 mg Documented By: NAVYA Albuterol Sulfate 2.5 mg/ (Ipratropium [place] 0.5 mg) 0 mg INHALE Q4H PRN PRN Reason: Wheezing Dextrose (Dextrose 50 % 25 Gm/50 Ml Syringe) 25 gm IVPUSH Q15M PRN; Protocol PRN Reason: per Hypoglycemia Standing Ord. Docusate Sodium (Docusate Sodium 100 Mg Capsule) 100 mg PO DAILY PRN PRN Reason: Constipation Famotidine (Famotidine 20 Mg Tablet) 20 mg PO Q2D@0900 [facility] Last Admin: 10/17/22 08:19 Dose: 20 mg Documented By: NAVYA Furosemide (Furosemide 40 Mg Tablet) 40 mg PO BIDWM [facility]; Protocol Last Admin: 10/17/22 08:19 Dose: 40 mg Documented By: NAVYA Glucose (Glucose Gel 15 Gm Gel..Gram.) 15 gm PO Q15M PRN; Protocol PRN Reason: per Hypoglycemia Standing Ord. Heparin Sodium (Porcine) (Heparin Sodium,Porcine 5,000 Unit/Ml Vial) 5,000 unit SUBCUT Q12H [facility] Last Admin: 10/17/22 08:19 Dose: 5,000 unit Documented By: NAVYA Insulin Glargine (Insulin Glargine,Hum.Rec.Anlog 100 Unit/Ml 10 Ml Vial) 18 unit SUBCUT DAILY [facility] Last Admin: 10/17/22 08:19 Dose: 18 unit Documented By: NAVYA Insulin Human Lispro (Insulin Lispro 100 Unit/Ml 3 Ml Vial) 0 unit SUBCUT QIDACHS [facility]; Protocol Last Admin: 10/17/22 08:09 Dose: Not Given Documented By: NAVYA Non-Admin Reason: No Insulin Coverage Magnesium Hydroxide (Milk Of Magnesia 30 Ml Oral.Susp) 30 ml PO BEDTIME PRN PRN Reason: constipation Magnesium Hydroxide (Milk Of Magnesia 30 Ml Oral.Susp) 30 ml PO DAILY PRN PRN Reason: Constipation Naloxone HCl (Naloxone Hcl 0.4 Mg/Ml Vial) 0.4 mg SUBCUT Q3M PRN PRN Reason: Opioid Overdose Ondansetron HCl (Ondansetron Hcl 4 Mg/2 Ml Vial) 4 mg IVPUSH Q8H PRN PRN Reason: Nausea and Vomiting Oxycodone HCl (Oxycodone Hcl Immed Release 5 Mg Tablet) 5 mg PO Q6H PRN PRN Reason: Pain, Severe (Pain Scale 7-10) Last Admin: 10/15/22 12:02 Dose: 5 mg Documented By: ELANA Polyethylene Glycol (Polyethylene Glycol 3350 17 Gm Powd.Pack) 17 gm PO DAILY [facility] Last Admin: 10/17/22 08:18 Dose: 17 gm Documented By: NAVYA Sertraline HCl (Sertraline Hcl 50 Mg Tablet) 50 mg PO DAILY [facility] Last Admin: 10/17/22 08:18 Dose: 50 mg Documented By: NAVYA Sodium Bicarbonate (Sodium Bicarbonate 650 Mg Tablet) 650 mg PO TID [facility] Last Admin: 10/17/22 08:19 Dose: 650 mg Documented By: NAVYA Sodium Biphosphate/Sodium Phosphate (Sodium Phosphate,Roberts-Dibasic 133 Ml Enema) [address] DAILY PRN PRN Reason: Constipation Sodium Chloride (0.9 % Sodium Chloride Flush 3 Ml Syringe) 3 ml IVFLUSH QSHIFT [facility] Last Admin: 10/17/22 08:10 Dose: 3 ml Documented By: NAVYA Sodium Zirconium Cyclosilicate (Sodium Zirconium Cyclosilicate 10 Gm Powd.Pack) 10 gm PO DAILY [facility] Last Admin: 10/17/22 10:35 Dose: 10 gm Documented By: NAVYA Trazodone HCl (Trazodone Hcl 50 Mg Tablet) 50 mg PO BEDTIME [facility] Last Admin: 10/16/22 20:35 Dose: 50 mg Documented By: DIANE Labs 10/17/22 06:06 10/17/22 06:06 Labs: Laboratory Results - last 24 hr 10/16/22 10/16/22 10/16/22 13:30 13:30 15:12 MCV MCH MCHC RDW Plt Count MPV Immature Gran % (Auto) Neut % (Auto) Lymph % (Auto) Roberts % (Auto) Eos % (Auto) Baso % (Auto) Lymph # (Auto) Roberts # (Auto) Eos # (Auto) Baso # (Auto) Abs Immat Gran (auto) Absolute Neuts (auto) Absolute Nucleated RBC Nucleated RBC % (auto) Anion Gap Estim Creat Clear Calc Estimated GFR POC Glucose 144 H Fasting Glucose Calcium Total Bilirubin AST ALT Alkaline Phosphatase Total Protein Albumin Procalcitonin Stl C. cayetanensis PCR Not Detected Stool Rotavirus A PCR Not Detected Stl Adenov F 40/ PCR Not Detected Stool Astrovirus (PCR) Not Detected Stool Campylobacter PCR Not Detected Stool Cryptosporidium PCR Not Detected Stl Sh Tox Pr E STEC PCR Not Detected Stool E coli O157 PCR Not applicable Stl Enterotoxigenic E PCR Not Detected Stool EPEC (PCR) Not Detected Stool EAEC (PCR) Not Detected Stl E. histolytica PCR Not Detected Stool Giardia Lamblia PCR Not Detected Stl P. shigelloides PCR Not Detected Stool Salmonella PCR Not Detected Stool Sapovirus (PCR) Not Detected Stl Shigella/EIEC PCR Not Detected St Y.enterocolitica PCR Not Detected Stool Vibrio (PCR) Not Detected Stl Vibrio cholerae PCR Not Detected Stl Norovirus GI/GII PCR Not Detected C. difficile Tox B Gene NEGATIVE 10/16/22 10/17/22 10/17/22 20:29 06:06 06:06 MCV 84.2 MCH 26.1 L MCHC 31.0 RDW 13.9 Plt Count 224 MPV 10.4 Immature Gran % (Auto) 0.4 Neut % (Auto) 60.0 Lymph % (Auto) 25.2 Roberts % (Auto) 7.9 Eos % (Auto) 6.1 H Baso % (Auto) 0.4 Lymph # (Auto) 2.0 Roberts # (Auto) 0.6 Eos # (Auto) 0.5 H Baso # (Auto) 0.0 Abs Immat Gran (auto) 0.03 Absolute Neuts (auto) 4.7 Absolute Nucleated RBC 0.000 Nucleated RBC % (auto) 0.0 Anion Gap 14 Estim Creat Clear Calc 13.0 Estimated GFR 13 POC Glucose 190 H Fasting Glucose 148 H Calcium 8.9 Total Bilirubin 0.3 AST 12 ALT 7 Alkaline Phosphatase 122 H Total Protein 7.0 Albumin 3.4 L Procalcitonin Stl C. cayetanensis PCR Stool Rotavirus A PCR Stl Adenov F 40 PCR Stool Astrovirus (PCR) Stool Campylobacter PCR Stool Cryptosporidium PCR Stl Sh Tox Pr E STEC PCR Stool E coli O157 PCR Stl Enterotoxigenic E PCR Stool EPEC (PCR) Stool EAEC (PCR) Stl E. histolytica PCR Stool Giardia Lamblia PCR Stl P. shigelloides PCR Stool Salmonella PCR Stool Sapovirus (PCR) Stl Shigella/EIEC PCR St Y.enterocolitica PCR Stool Vibrio (PCR) Stl Vibrio cholerae PCR Stl Norovirus GI/GII PCR C. difficile Tox B Gene 10/17/22 10/17/22 10/17/22 06:06 07:46 10:49 MCV MCH MCHC RDW Plt Count MPV Immature Gran % (Auto) Neut % (Auto) Lymph % (Auto) Roberts % (Auto) Eos % (Auto) Baso % (Auto) Lymph # (Auto) Roberts # (Auto) Eos # (Auto) Baso # (Auto) Abs Immat Gran (auto) Absolute Neuts (auto) Absolute Nucleated RBC Nucleated RBC % (auto) Anion Gap Estim Creat Clear Calc Estimated GFR POC Glucose 138 H 238 H Fasting Glucose Calcium Total Bilirubin AST ALT Alkaline Phosphatase Total Protein Albumin Procalcitonin 0.07 Stl C. cayetanensis PCR Stool Rotavirus A PCR Stl Adenov F 40/41 PCR Stool Astrovirus (PCR) Stool Campylobacter PCR Stool Cryptosporidium PCR Stl Sh Tox Pr E STEC PCR Stool E coli O157 PCR Stl Enterotoxigenic E PCR Stool EPEC (PCR) Stool EAEC (PCR) Stl E. histolytica PCR Stool Giardia Lamblia PCR Stl P. shigelloides PCR Stool Salmonella PCR Stool Sapovirus (PCR) Stl Shigella/EIEC PCR St Y.enterocolitica PCR Stool Vibrio (PCR) Stl Vibrio cholerae PCR Stl Norovirus GI/GII PCR C. difficile Tox B Gene Microbiology Microbiology Results: Microbiology 10/14/22 20:12 Blood Culture - Preliminary Blood - Venous No growth after 48 hours. 10/14/22 20:12 Blood Culture - Preliminary Blood - Venous No growth after 48 hours. Assessment and Plan (1) Nausea & vomiting: Status: Acute (2) GIL (acute kidney injury): Status: Acute (3) CKD (chronic kidney disease) stage 5, GFR less than 15 ml/min: Status: Acute Plan d#4 67yo F with CKD5, chronic HFrEF, DM2, prior CVA presenting with N/V/D and admitted for GIL/CKD5 with hyperK # GIL/CKD5 - SCr back at baseline after fluid repletion, Nephro following - continue bicarbonate supplementation # hyperK - continue SZC 10g daily, recheck BMP in AM # N/V/D - resolved, no pathogens on GI panel # bacteruria # aspiration - per ID no evidence of bacterial infection, so ABX discontinued - per BREAD MOLDER REGULAR solids and THIN liquids, pills WHOLE in PUREE or LIQUID per pt's tolerance # HTN # chronic HFrEF - continue amlodipine, carvedilol, furosemide # hx CVA - continue clopidogrel # DM2 - basal-bolus insulin # VTE ppx: UFH # dispo: anticipate back to LTC when hyperK resolves In my clinical judgment, the patient requires continued inpatient hospitalization for the following reasons: hyperK Time Spent With Patient Time: Total time managing care of this patient today __30_ minutes. Quality Stroke Does the patient have a stroke diagnosis?: No VTE Prior VTE?: No VTE Risk Level:: Medical - moderate - high VTE Device Contraindication: Treatment Not Indicated VTE Drug Contraindication: N/A - Med Ordered
--- NOTE | 2022-10-17 11:54 | MHC.SL.SWA ---
Speech Pathologist Impression: WFL Risk of Aspiration Due to: N/A Dysphasia Diet Status: Upgrade to regular textures Liquid Consistency and Strategies for Safe Swallow: Liquid Intake Recommendation: Thin Liquid Intake Strategies: Small Sips Solid Food Consistency: Dietary Recommendations: Regular Oral Medication Intake: Whole with Liquid Please contact the pharmacy regarding appropriate crushable or liquid drug formulations that are available whenever modified delivery is recommended. Compensatory Strategies and Precautions to be Taken for Safe Swallow: Sitting Upright (90 deg) Small Bites and Sips Alternate Liquids/Solids Rate of Ingestion Change Avoid Specific Foods Supervision While Eating and Drinking for Safe Swallow: Total Supervision Foods to Avoid: Hard, tough to chew solids Recommendation for Speech: Inpatient Speech Therapy Comment: 1 f/u to ensure tolerance Dining Room Server Clinican/Clinical Fellow: No Supervisory Statement: I have reviewed and agree with the student/clinical fellow's documentation: N/A Speech Language Pathologist: Amelia Trevino M.A., CCC-DISHWASHER PREPARER
--- NOTE | 2022-10-17 12:02 | MHC.SL.SWA ---
Speech Pathologist Impression: WFL Risk of Aspiration Due to: N/A Dysphasia Diet Status: UPGRADE to regular/thin Liquid Consistency and Strategies for Safe Swallow: Liquid Intake Recommendation: Thin Liquid Intake Strategies: Small Sips Solid Food Consistency: Dietary Recommendations: Regular Additional Modifications to Solid Foods: Pt seen for clinical swallow evaluation this morning. Pt consumed applesauce, elsa crackers, and water w/o any s/s of aspiration, unremarkable oral phase. Recommend 1:1 supervision to ensure tolerance, safe eating behaviors. Recommend upgrade to REGULAR solids and continue with THIN liquids, pills WHOLE in PUREE or LIQUID per pt's tolerance. Diet order updated by CARBON SETTER. Care Team (MD, RN, RD) notified via [place] Message. CARBON SETTER to f/u 1x time to ensure tolerance of unmodified diet. Oral Medication Intake: Whole with Puree or Liquid per pt's tolerance Please contact the pharmacy regarding appropriate crushable or liquid drug formulations that are available whenever modified delivery is recommended. Compensatory Strategies and Precautions to be Taken for Safe Swallow: Sitting Upright (90 deg) Small Bites and Sips Alternate Liquids/Solids Rate of Ingestion Change Avoid Specific Foods Supervision While Eating and Drinking for Safe Swallow: Total Supervision (1:1) Foods to Avoid: Hard, tough to chew solids Swallowing Recommended Treatments: Recommendation for Speech: Inpatient Speech Therapy Comment: 1 f/u to ensure tolerance Paper Tube Grader Clinican/Clinical Fellow: No Supervisory Statement: I have reviewed and agree with the student/clinical fellow's documentation: N/A Speech Language Pathologist: Amelia Trevino M.A., CCC-CARBON SETTER
[2022-10-17] MEDS: Insulin Lispro 100 UNIT/ML 3 ML VIAL SUBCUT ×3 (12:11→19:57)
--- NOTE | 2022-10-17 12:50 | MHC.CM.PN ---
per rounds pts potassium ismhigh will be dcd in 1 day back to [facility]
[2022-10-17 14:53] VITALS: BP 141/61; PULSE 71; RESP 20; TEMP 36.4; O2SAT 97
[2022-10-17 16:13] LABS: Glucose, Whole Blood 172 mg/dL (60-115)
[2022-10-17 19:06] VITALS: BP 132/60; PULSE 70; RESP 20; TEMP 36.5; O2SAT 96
[2022-10-17 19:49] LABS: Glucose, Whole Blood 206 mg/dL (60-115)
[2022-10-17] MEDS: Atorvastatin Calcium 80 MG TABLET PO (19:58)
[2022-10-17] MEDS: Aspirin Enteric Coated 81 MG TABLET.DR PO (19:58)
[2022-10-17] MEDS: traZODone HCL 50 MG TABLET PO (19:58)
[2022-10-18] VITALS: BP 138/63; PULSE 68; RESP 18; TEMP 36.6; O2SAT 94
[2022-10-18 04:00] VITALS: BP 159/70; PULSE 66; RESP 18; TEMP 36.8; O2SAT 96
[2022-10-18 06:45] LABS: Anion Gap 17 (12-20); Blood Urea Nitrogen 45 mg/dL (9-16); Calcium 8.7 mg/dL (8.4-10.2); Carbon Dioxide 19 mmol/L (22-29); Chloride 109 mmol/L (96-108); Creatinine Clr Calc Pharmacy 14.1; Estimated Glomerular Filt Rate 14; Glucose Random 135 mg/dL (60-115); Potassium 5.4 mmol/L (3.3-5.1); Sodium 140 mmol/L (135-145)
[2022-10-18 07:13] VITALS: BP 138/64; PULSE 76; RESP 17; TEMP 36.6; O2SAT 95
[2022-10-18 07:47] LABS: Glucose, Whole Blood 120 mg/dL (60-115)
--- NOTE | 2022-10-18 10:27 | PM.PNNEP ---
Subjective Subjective Date of Service: 10/18/22 Interval history: This history was taken in Maltese from the patient. N/V/D resolved no abd pain K still high Physical Exam Vital Signs: Vital Signs: Last Vital Signs Temp 97.8 F 10/18/22 07:13 Pulse 76 10/18/22 07:13 Resp 17 10/18/22 07:13 BP 138/64 10/18/22 07:13 Pulse Ox 95 10/18/22 07:13 O2 Del Method 10/18/22 07:13 BMI result Body Mass Index 33.1 Const: General: no acute distress HEENT: Head: Yes normocephalic and Yes atraumatic Neck: Neck: Yes supple Resp: Auscultation: diminished lung sounds Cardio: Heart sounds: S1 normal heart sound present and S2 normal heart sound present GI: Palpation (GI): Soft to palpation and nontender Extrem: General: No clubbing and No cyanosis Objective Data Labs 10/17/22 06:06 10/18/22 06:04 Labs: Laboratory Results - last 24 hr 10/17/22 10/17/22 10/17/22 10:49 16:06 19:42 Sodium Potassium Chloride Carbon Dioxide Anion Gap BUN Creatinine Estim Creat Clear Calc Estimated GFR POC Glucose 238 H 172 H 206 H Random Glucose Calcium 10/18/22 10/18/22 06:04 07:16 Sodium 140 Potassium 5.4 H Chloride 109 H Carbon Dioxide 19 L Anion Gap 17 BUN 45 H Creatinine 3.31 H Estim Creat Clear Calc 14.1 Estimated GFR 14 POC Glucose 120 H Random Glucose 135 H Calcium 8.7 Microbiology Microbiology Results: Microbiology 10/14/22 20:12 Blood - Venous Blood Culture - Preliminary No growth after 48 hours. 10/14/22 20:12 Blood - Venous Blood Culture - Preliminary No growth after 48 hours. 10/14/22 00:00 Urine clean catch - Urine chery top Urine Culture - Final Procedures Date of Service Date of Service: 10/18/22 Assessment & Plan Assessment and plan (1) GIL (acute kidney injury): Status: Acute (2) Hyperkalemia: Status: Acute (3) Metabolic acidosis: Status: Acute (4) Anemia: Status: Acute (5) CKD (chronic kidney disease) stage 5, GFR less than 15 ml/min: Status: Acute Plan kidney function at baseline GIL superimposed on advanced CKD resolved probably renal hypoperfusion given clinical presentation known advanced CKD due to DM/HTN baseline Scr ~ 3.5-4 mg/dl elevated serum potassium due to decreased distal flow anemia due to CKD REC sodium zirconium 10 g if K > 5.2 c/w NaHCO3 orally protect non dominant arm no indication for ELECTRICAL MAINTENANCE SUPERVISOR follow kidney function and electrolytes Time Spent With Patient Time: Total time managing care of this patient today ____ minutes. Progress Note: Quality Stroke Does the patient have a stroke diagnosis?: No
[2022-10-18] MEDS: polyethylene glycoL 3350 17 GM POWD.PACK PO (10:42)
[2022-10-18] MEDS: Sodium Zirconium Cyclosilicate 10 GM POWD.PACK PO (10:42)
[2022-10-18] MEDS: amLODIPine Besylate 10 MG TABLET PO (10:44)
[2022-10-18] MEDS: Clopidogrel Bisulfate 75 MG TABLET PO (10:44)
[2022-10-18] MEDS: Sertraline HCL 50 MG TABLET PO (10:45)
[2022-10-18] MEDS: Furosemide 40 MG TABLET PO ×2 (10:45→16:51)
[2022-10-18] MEDS: Sodium Bicarbonate 650 MG TABLET PO ×3 (10:45→20:28)
[2022-10-18] MEDS: Calcium + Vitamin D 250 MG TABLET PO ×2 (10:45→20:28)
[2022-10-18] MEDS: carvediloL 6.25 MG TABLET PO ×2 (10:46→20:28)
[2022-10-18] MEDS: 0.9 % Sodium Chloride Flush 3 ML SYRINGE IVFLUSH ×2 (10:46→17:28)
[2022-10-18] MEDS: Heparin Sodium,Porcine 5,000 UNIT/ML VIAL 5000 UNIT SUBCUT ×2 (10:47→20:29)
[2022-10-18] MEDS: Insulin Glargine,Hum.rec.anlog 100 UNIT/ML 10 ML VIAL 18 UNIT SUBCUT (10:48)
--- NOTE | 2022-10-18 11:06 | MHC.CM.PN ---
trnasfer back to [facility] arranged for 2;00 today dgter aware
--- NOTE | 2022-10-18 11:19 | P.CNUR_ITS ---
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 Urine and blood c/s no growth. Called to evaluate for urinary retention. With use of hourly sign language interpreter, the patient states she was treated for UTI as out patient, she states she had a surgery on intestines many years ago and was told bladder was attached and since then she has had problems emptying her bladder, she has to push. Prior h/o hysterectomy. CT imaging, no urolithiasis, Mild symmetric bilateral perinephric fat stranding.?bladder was distended. ---Other significant findings: Moderate to large stool content in the colon and rectum with some questionable rectal wall thickening but no significant perirectal fat stranding.? On evaluation: Bladder scan 767 mL. Plan Flomax and bethanochol, Intermittent Straight cath prn for PVR >350 mL. Out patient FU Review of Systems Review of Systems: 10 point ROS negative other than stated [facility] Past Medical History Medical History Acute on chronic renal failure Acute worsening of stage 4 chronic kidney disease Anemia Blister of finger without infection Cardiomyopathy Cholecystectomy planned Chronic heart failure with preserved ejection fraction (HFpEF) Chronic kidney failure CKD (chronic kidney disease) CKD (chronic kidney disease) stage 3, GFR 30-59 ml/min CKD (chronic kidney disease) stage 4, GFR 15-29 ml/min CKD (chronic kidney disease) stage 5, GFR less than 15 ml/min CKD (chronic kidney disease), stage IV Congestive heart failure Diabetes Diabetes mellitus Elevated d-dimer Elevated troponin Essential hypertension Gastroparesis Generalized weakness GERD (gastroesophageal reflux disease) Hand pain Hernia HLD (hyperlipidemia) HTN (hypertension) Hypomagnesemia Irritable bowel syndrome with diarrhea Lightheadedness Low blood pressure Non-ST elevated myocardial infarction Nonischemic cardiomyopathy Normocytic anemia Other and unspecified hyperlipidemia Pharyngoesophageal dysphagia Type 2 diabetes mellitus with unspecified complications UTI (urinary tract infection) Family History Family History Father Lung cancer Mother Diabetes HTN (hypertension) Heart disease Sister Diabetes Heart disease Brother Heart disease Son Diabetes Daughter Diabetes Family history: reviewed and not pertinent Surgical History Surgical History H/O: hysterectomy History of esophagogastroduodenoscopy (EGD) Hx of colonoscopy Hx of eye surgery Social History Social History Household Members: Caregiver Household Members Other:: SNF Housing: Half-Way Do you presently have visiting nurse or other home services: No Unable to assess alcohol history related to: Unknown Alcohol intake: never Patient Tobacco Use Status: Never used Tobacco Smoked in Last 30 Days: No Second Hand Smoke Exposure: No Use of substances other than those prescribed or required for medical reasons: No Currently Displaying Signs/Symptoms of Drug Intoxication Withdrawal: No Have you been hit, kicked, punched, or otherwise hurt by someone within the past year? If so, by whom?: No Do you feel safe in your current relationship?: No Current Relationship Is there a partner from a previous relationship who is making you feel unsafe now?: No Are you made to feel afraid or neglected: No Advance Directives: Yes Advance Directives on File: Yes Advance Directives Date on File: 02/02/22 Do you have thoughts of harming others: None Do you have a plan to hurt others: No Plan Recently lost weight without trying: Unsure How much weight loss: Unsure Eating poorly because of decreased appetite: Yes Nutrition screen score: 5 Nutrition Risks: Difficulty swallowing Patient : No : No Poor oral hygiene: No service: No Current occupational status: disabled Meds Allergies Allergy/AdvReac Type Severity Reaction Status Date / Time latex [LATEX] Allergy Intermediate ITCHY Verified 10/11/22 11:59 Active Medications: Current Medications Acetaminophen (Acetaminophen 325 Mg Tablet) 650 mg PO Q6H PRN PRN Reason: Pain, Mild (Pain Scale 1-3) Amlodipine Besylate (Amlodipine Besylate 10 Mg Tablet) 10 mg PO DAILY MATTY; Protocol Last Admin: 10/18/22 10:44 Dose: 10 mg Aspirin (Aspirin Enteric Coated 81 Mg Tablet.Dr) 81 mg PO BEDTIME [facility] Last Admin: 10/17/22 19:58 Dose: 81 mg Atorvastatin Calcium (Atorvastatin Calcium 80 Mg Tablet) 80 mg PO BEDTIME [facility] Last Admin: 10/17/22 19:58 Dose: 80 mg Bisacodyl (Bisacodyl 10 Mg Supp.Rect) 10 mg HI DAILY PRN PRN Reason: Constipation Calcium Carbonate/Cholecalciferol (Calcium + Vitamin D 250 Mg Tablet) 250 mg PO BID [facility] Last Admin: 10/18/22 10:45 Dose: 250 mg Carvedilol (Carvedilol 6.25 Mg Tablet) 6.25 mg PO BID [facility]; Protocol Last Admin: 10/18/22 10:46 Dose: 6.25 mg Clopidogrel Bisulfate (Clopidogrel Bisulfate 75 Mg Tablet) 75 mg PO DAILY [facility] Last Admin: 10/18/22 10:44 Dose: 75 mg Albuterol Sulfate 2.5 mg/ (Ipratropium [place] 0.5 mg) 0 mg INHALE Q4H PRN PRN Reason: Wheezing Dextrose (Dextrose 50 % 25 Gm/50 Ml Syringe) 25 gm IVPUSH Q15M PRN; Protocol PRN Reason: per Hypoglycemia Standing Ord. Docusate Sodium (Docusate Sodium 100 Mg Capsule) 100 mg PO DAILY PRN PRN Reason: Constipation Famotidine (Famotidine 20 Mg Tablet) 20 mg PO Q2D@0900 [facility] Last Admin: 10/17/22 08:19 Dose: 20 mg Furosemide (Furosemide 40 Mg Tablet) 40 mg PO BIDWM [facility]; Protocol Last Admin: 10/18/22 10:45 Dose: 40 mg Glucose (Glucose Gel 15 Gm Gel..Gram.) 15 gm PO Q15M PRN; Protocol PRN Reason: per Hypoglycemia Standing Ord. Heparin Sodium (Porcine) (Heparin Sodium,Porcine 5,000 Unit/Ml Vial) 5,000 unit SUBCUT Q12H [facility] Last Admin: 10/18/22 10:47 Dose: 5,000 unit Insulin Glargine (Insulin Glargine,Hum.Rec.Anlog 100 Unit/Ml 10 Ml Vial) 18 unit SUBCUT DAILY [facility] Last Admin: 10/18/22 10:48 Dose: 18 unit Insulin Human Lispro (Insulin Lispro 100 Unit/Ml 3 Ml Vial) 0 unit SUBCUT QIDACHS [facility]; Protocol Last Admin: 10/18/22 08:29 Dose: Not Given Magnesium Hydroxide (Milk Of Magnesia 30 Ml Oral.Susp) 30 ml PO BEDTIME PRN PRN Reason: constipation Magnesium Hydroxide (Milk Of Magnesia 30 Ml Oral.Susp) 30 ml PO DAILY PRN PRN Reason: Constipation Naloxone HCl (Naloxone Hcl 0.4 Mg/Ml Vial) 0.4 mg SUBCUT Q3M PRN PRN Reason: Opioid Overdose Ondansetron HCl (Ondansetron Hcl 4 Mg/2 Ml Vial) 4 mg IVPUSH Q8H PRN PRN Reason: Nausea and Vomiting Oxycodone HCl (Oxycodone Hcl Immed Release 5 Mg Tablet) 5 mg PO Q6H PRN PRN Reason: Pain, Severe (Pain Scale 7-10) Last Admin: 10/15/22 12:02 Dose: 5 mg Polyethylene Glycol (Polyethylene Glycol 3350 17 Gm Powd.Pack) 17 gm PO DAILY [facility] Last Admin: 10/18/22 10:42 Dose: 17 gm Sertraline HCl (Sertraline Hcl 50 Mg Tablet) 50 mg PO DAILY [facility] Last Admin: 10/18/22 10:45 Dose: 50 mg Sodium Bicarbonate (Sodium Bicarbonate 650 Mg Tablet) 650 mg PO TID [facility] Last Admin: 10/18/22 10:45 Dose: 650 mg Sodium Biphosphate/Sodium Phosphate (Sodium Phosphate,[place]-Dibasic 133 Ml Enema) 118 ml HI DAILY PRN PRN Reason: Constipation Sodium Chloride (0.9 % Sodium Chloride Flush 3 Ml Syringe) 3 ml IVFLUSH QSHIFT [facility] Last Admin: 10/18/22 10:46 Dose: 3 ml Sodium Zirconium Cyclosilicate (Sodium Zirconium Cyclosilicate 10 Gm Powd.Pack) 10 gm PO DAILY [facility] Last Admin: 10/18/22 10:42 Dose: 10 gm Trazodone HCl (Trazodone Hcl 50 Mg Tablet) 50 mg PO BEDTIME [facility] Last Admin: 10/17/22 19:58 Dose: 50 mg Home Medications Medication Instructions Recorded Confirmed Last Taken Type aspirin 81 mg tablet,delayed 81 mg PO BEDTIME 06/20/21 10/14/22 10/14/22 History release atorvastatin 80 mg tablet 80 mg PO BEDTIME 06/20/21 10/14/22 10/13/22 History calcium carbonate 600 mg-vitamin 1 tab PO BID 06/20/21 10/14/22 10/14/22 History D3 10 mcg (400 unit) tablet clopidogrel 75 mg tablet 75 mg PO DAILY 06/20/21 10/14/22 10/13/22 History magnesium oxide 400 mg (241.3 mg 400 mg PO BID 06/20/21 10/14/22 10/14/22 History magnesium) tablet sertraline 50 mg tablet 50 mg PO DAILY 06/20/21 10/14/22 10/14/22 History trazodone 50 mg tablet 50 mg PO BEDTIME 06/20/21 10/14/22 10/13/22 History insulin glargine 100 unit/mL (3 18 unit subcut DAILY 03/25/22 10/14/22 10/14/22 History mL) subcutaneous pen (Lantus Solostar U-100 Insulin) ipratropium 0.5 mg-albuterol 3 mg 3 ml inhalation Q4H PRN Wheezing 05/05/22 10/14/22 Unknown History (2.5 mg base)/3 mL nebulization soln furosemide 40 mg tablet (Lasix) 40 mg PO BIDWM 10/14/22 10/14/22 10/14/22 History insulin lispro 100 unit/mL See Protocol subcut QIDACHS 10/14/22 10/14/22 10/14/22 History subcutaneous solution (Humalog U-100 Insulin) acetaminophen 500 mg tablet 1,000 mg PO Q6H PRN Fever Or Pain 10/15/22 10/15/22 Unknown History bisacodyl 10 mg rectal suppository 10 mg HI DAILY PRN Constipation 10/15/22 10/15/22 Unknown History magnesium hydroxide 400 mg/5 mL 30 ml PO DAILY PRN Constipation 10/15/22 10/15/22 Unknown History oral suspension (Milk of Magnesia) naloxone 0.4 mg/mL injection 0.4 mg subcut Q3M PRN Opioid 10/15/22 10/15/22 Unknown History solution Overdose sodium phosphates 19 gram-7 118 ml HI DAILY PRN Constipation 10/15/22 10/15/22 Unknown History gram/118 mL enema (Fleet Enema) Physical Exam Vital Signs: Vital Signs: Last Vital Signs Temp 97.8 F 10/18/22 07:13 Pulse 76 10/18/22 07:13 Resp 17 10/18/22 07:13 BP 138/64 10/18/22 07:13 Pulse Ox 95 10/18/22 07:13 O2 Del Method 10/18/22 07:13 BMI result Body Mass Index 33.1 Results Labs 10/17/22 06:06 10/18/22 06:04 Labs: Abnormal lab results 10/17/22 10/17/22 10/17/22 Range/Units 10:49 16:06 19:42 Potassium (3.3-5.1) mmol/L Chloride (96-108) mmol/L Carbon Dioxide (22-29) mmol/L BUN (9-16) mg/dL Creatinine (0.5-1.4) mg/dL POC Glucose 238 H 172 H 206 H (60-115) mg/dL Random Glucose (60-115) mg/dL 10/18/22 10/18/22 Range/Units 06:04 07:16 Potassium 5.4 H (3.3-5.1) mmol/L Chloride 109 H (96-108) mmol/L Carbon Dioxide 19 L (22-29) mmol/L BUN 45 H (9-16) mg/dL Creatinine 3.31 H (0.5-1.4) mg/dL POC Glucose 120 H (60-115) mg/dL Random Glucose 135 H (60-115) mg/dL BMP 10/18/22 06:04 Sodium 140 Potassium 5.4 H Chloride 109 H Carbon Dioxide 19 L BUN 45 H Creatinine 3.31 H Calcium 8.7 Urine 10/14/22 Range/Units 13:38 Urine Color Yellow Urine Appearance Cloudy Urine pH >= 9.0 (5.0-9.0) Ur Specific [place] 1.015 (1.005-1.025) Urine Protein 300 (3+) H (Neg-Trace) mg/dL Urine Glucose (UA) Negative (Negative) mg/dL Imaging Abdomen CT scan report/results: report reviewed and image reviewed CT scan - pelvis: report reviewed and image reviewed Additional studies: Date of Service: 10/14/22 EXAMINATION: CT ABDOMEN AND PELVIS WITHOUT CONTRAST? CLINICAL INFORMATION: Diarrhea.? COMPARISON: CT abdomen/pelvis 03/07/2022.? FINDINGS: LUNG BASES: A 6 mm nodule in the right lung base (4:76) is unchanged when compared to 02/25/2021. Small calcified granuloma redemonstrated in the right middle lobe (4:8). Mild bronchial wall thickening with mosaic attenuation of the lung parenchyma and left greater than right subsegmental atelectasis versus scarring. Coronary artery calcifications are partially seen.? LIVER, GALLBLADDER, AND BILIARY TREE: Limited noncontrast examination of the liver without discrete focal lesion. Cholecystectomy. No biliary ductal dilatation. PANCREAS: Limited noncontrast examination with atrophic parenchyma but otherwise unremarkable.? SPLEEN: Limited noncontrast examination, unremarkable.? ADRENAL GLANDS: No adrenal nodule.? KIDNEYS AND URETERS: No nephrolithiasis or hydronephrosis. Mild symmetric bilateral perinephric fat stranding.? BLADDER: Unremarkable.? GASTROINTESTINAL TRACT: Nonspecific gastric distention with heterogeneous and mixed density debris. No evidence of small bowel dilatation. Again noted anastomosis within loops of small bowel in the lower abdomen. Normal appendix. No pericolonic inflammatory changes or evidence of bowel obstruction. Moderate to large stool content in the colon and rectum with some questionable rectal wall thickening but no significant perirectal fat stranding.? ABDOMINAL WALL: Postoperative changes in the lower abdominal wall with a hernial mesh. There is increased soft tissue thickening in the abdominal wall anterior to the mesh, for instance measuring 1.8 cm on axial image 73, series 3. No evidence of recurrent hernia. Dependent anasarca. There is skin thickening of the intergluteal folds.? LYMPH NODES: Scattered subcentimeter mesenteric and retroperitoneal lymph nodes are not convincingly changed not meeting pathological size criteria. VASCULAR: Extensive atherosclerotic disease. The abdominal aorta is of normal diameter. PELVIC VISCERA: Hysterectomy. No pelvic mass. Small volume of free fluid in the presacral space is unchanged.? OSSEOUS STRUCTURES: Degenerative changes of the spine. No acute or aggressive appearing osseous abnormalities.? IMPRESSION: 1.? Moderate to large stool content in the colon and rectum with questionable rectal wall thickening but no significant perirectal fat stranding. Findings could be related with constipation and early stercoral colitis in the appropriate clinical context. 2.? Nonspecific gastric distention with heterogeneous and mixed density debris. Correlate clinically for gastroparesis. 3.? Increased soft tissue thickening of the abdominal wall anterior to the lower abdominal hernial mesh, recommend correlation with physical examination for signs of infection. 4.? Increased skin thickening with mild fat stranding of the intergluteal folds, recommend correlation with physical examination for decubitus ulcers or infection. Assessment and Plan (1) Acute kidney injury superimposed on CKD: Status: Acute (2) Urinary retention: Status: Acute (3) Constipation: Status: Acute Plan Urinary retention, unclear etiology, constipation may be contributing to problem Recommend ISC while inpatient check bladder scan PVR q 6 hr --ISC for > 350 mL Trial of flomax 0.4 mg q d and bethanochol 25 mg bid, ordered. Time Spent With Patient Time: Total time managing care of this patient today ____ minutes. Procedures Date of Service Date of Service: 10/18/22
[2022-10-18 11:22] LABS: Glucose, Whole Blood 186 mg/dL (60-115)
[2022-10-18 11:35] VITALS: BP 130/70; PULSE 70; RESP 17; TEMP 36.3; O2SAT 96
[2022-10-18 11:35] LABS: COVID-19 Test Negative (Negative); IDNOW Serial# 16C4AD1C
[2022-10-18] MEDS: Insulin Lispro 100 UNIT/ML 3 ML VIAL SUBCUT ×3 (12:27→20:28)
[2022-10-18] MEDS: Bethanechol Chloride 25 MG TABLET PO (13:15)
--- NOTE | 2022-10-18 13:21 | PC.NURSE ---
Per Dr Bruce Sanchez, straight catheterized patient yeilding 600cc output, MD Bruce Sanchez also made somedication changes to the discharge plan
--- NOTE | 2022-10-18 14:45 | P.PNIM_ITS ---
Subjective Subjective Date of Service: 10/18/22 Interval History: This history was taken in Amharic from the patient. Pt c/o urinary retention- has to push to empty bladder. PVR 767 mL. K still high No N/V/D Review of Systems Review of Systems: Yes all other systems are reviewed and are negative Physical Exam Vital Signs: Vital Signs: Last Vital Signs Temp 97.4 F 10/18/22 11:35 Pulse 70 10/18/22 11:35 Resp 17 10/18/22 11:35 BP 130/70 10/18/22 11:35 Pulse Ox 96 10/18/22 11:35 O2 Del Method 10/18/22 11:35 BMI result Body Mass Index 33.1 Gen: in no acute distress HEENT: sclera anicteric, moist mucus membranes Neck: supple Lungs: clear to auscultation bilaterally Heart: regular rate and rhythm, no murmurs Abd: soft, non-tender, non-distended Ext: no edema Skin: warm/well-perfused Neuro: alert and oriented x3, no focal findings Psych: appropriate affect Objective Data Active Medications Acetaminophen (Acetaminophen 325 Mg Tablet) 650 mg PO Q6H PRN PRN Reason: Pain, Mild (Pain Scale 1-3) Amlodipine Besylate (Amlodipine Besylate 10 Mg Tablet) 10 mg PO DAILY [facility]; P rotocol Last Admin: 10/18/22 10:44 Dose: 10 mg Documented By: AGNES Aspirin (Aspirin Enteric Coated 81 Mg Tablet.) 81 mg PO BEDTIME [facility] Last Admin: 10/17/22 19:58 Dose: 81 mg Documented By: RITA Atorvastatin Calcium (Atorvastatin Calcium 80 Mg Tablet) 80 mg PO BEDTIME [facility] Last Admin: 10/17/22 19:58 Dose: 80 mg Documented By: RITA Bisacodyl (Bisacodyl 10 Mg Supp.Rect) 10 mg [place] DAILY PRN PRN Reason: Constipation Calcium Carbonate/Cholecalciferol (Calcium + Vitamin D 250 Mg Tablet) 250 mg PO BID [facility] Last Admin: 10/18/22 10:45 Dose: 250 mg Documented By: AGNES Carvedilol (Carvedilol 6.25 Mg Tablet) 6.25 mg PO BID [facility]; Protocol Last Admin: 10/18/22 10:46 Dose: 6.25 mg Documented By: AGNES Clopidogrel Bisulfate (Clopidogrel Bisulfate 75 Mg Tablet) 75 mg PO DAILY [facility] Last Admin: 10/18/22 10:44 Dose: 75 mg Documented By: AGNES Albuterol Sulfate 2.5 mg/ (Ipratropium [place] 0.5 mg) 0 mg INHALE Q4H PRN PRN Reason: Wheezing Dextrose (Dextrose 50 % 25 Gm/50 Ml Syringe) 25 gm IVPUSH Q15M PRN; Protocol PRN Reason: per Hypoglycemia Standing Ord. Docusate Sodium (Docusate Sodium 100 Mg Capsule) 100 mg PO DAILY PRN PRN Reason: Constipation Famotidine (Famotidine 20 Mg Tablet) 20 mg PO Q2D@0900 [facility] Last Admin: 10/17/22 08:19 Dose: 20 mg Documented By: NAVYA Furosemide (Furosemide 40 Mg Tablet) 40 mg PO BIDWM [facility]; Protocol Last Admin: 10/18/22 10:45 Dose: 40 mg Documented By: AGNES Glucose (Glucose Gel 15 Gm Gel..Gram.) 15 gm PO Q15M PRN; Protocol PRN Reason: per Hypoglycemia Standing Ord. Heparin Sodium (Porcine) (Heparin Sodium,Porcine 5,000 Unit/Ml Vial) 5,000 unit SUBCUT Q12H [facility] Last Admin: 10/18/22 10:47 Dose: 5,000 unit Documented By: AGNES Insulin Glargine (Insulin Glargine,Hum.Rec.Anlog 100 Unit/Ml 10 Ml Vial) 18 unit SUBCUT DAILY [facility] Last Admin: 10/18/22 10:48 Dose: 18 unit Documented By: AGNES Insulin Human Lispro (Insulin Lispro 100 Unit/Ml 3 Ml Vial) 0 unit SUBCUT QIDACHS [facility]; Protocol Last Admin: 10/18/22 12:27 Dose: 2 unit Documented By: AGNES Magnesium Hydroxide (Milk Of Magnesia 30 Ml Oral.Susp) 30 ml PO BEDTIME PRN PRN Reason: constipation Magnesium Hydroxide (Milk Of Magnesia 30 Ml Oral.Susp) 30 ml PO DAILY PRN PRN Reason: Constipation Naloxone HCl (Naloxone Hcl 0.4 Mg/Ml Vial) 0.4 mg SUBCUT Q3M PRN PRN Reason: Opioid Overdose Ondansetron HCl (Ondansetron Hcl 4 Mg/2 Ml Vial) 4 mg IVPUSH Q8H PRN PRN Reason: Nausea and Vomiting Oxycodone HCl (Oxycodone Hcl Immed Release 5 Mg Tablet) 5 mg PO Q6H PRN PRN Reason: Pain, Severe (Pain Scale 7-10) Last Admin: 10/15/22 12:02 Dose: 5 mg Documented By: ELANA Polyethylene Glycol (Polyethylene Glycol 3350 17 Gm Powd.Pack) 17 gm PO DAILY [facility] Last Admin: 10/18/22 10:42 Dose: 17 gm Documented By: AGNES Sertraline HCl (Sertraline Hcl 50 Mg Tablet) 50 mg PO DAILY [facility] Last Admin: 10/18/22 10:45 Dose: 50 mg Documented By: AGNES Sodium Bicarbonate (Sodium Bicarbonate 650 Mg Tablet) 650 mg PO TID [facility] Last Admin: 10/18/22 10:45 Dose: 650 mg Documented By: AGNES Sodium Biphosphate/Sodium Phosphate (Sodium Phosphate,[place]-Dibasic 133 Ml Enema) 118 ml [place] DAILY PRN PRN Reason: Constipation Sodium Chloride (0.9 % Sodium Chloride Flush 3 Ml Syringe) 3 ml IVFLUSH QSHIFT [facility] Last Admin: 10/18/22 10:46 Dose: 3 ml Documented By: AGNES Sodium Zirconium Cyclosilicate (Sodium Zirconium Cyclosilicate 10 Gm Powd.Pack) 10 gm PO DAILY [facility] Last Admin: 10/18/22 10:42 Dose: 10 gm Documented By: AGNES Tamsulosin HCl (Tamsulosin Hcl 0.4 Mg Capsule) 0.4 mg PO BEDTIME [facility] Trazodone HCl (Trazodone Hcl 50 Mg Tablet) 50 mg PO BEDTIME [facility] Last Admin: 10/17/22 19:58 Dose: 50 mg Documented By: RITA Labs 10/17/22 06:06 10/18/22 06:04 Labs: Laboratory Results - last 24 hr 10/17/22 10/17/22 10/18/22 16:06 19:42 06:04 Anion Gap 17 Estim Creat Clear Calc 14.1 Estimated GFR 14 POC Glucose 172 H 206 H Random Glucose 135 H Calcium 8.7 COVID-19 ([facility]) COVID-19 Clin Com 10/18/22 10/18/22 10/18/22 07:16 11:00 11:06 Anion Gap Estim Creat Clear Calc Estimated GFR POC Glucose 120 H 186 H Random Glucose Calcium COVID-19 ([facility]) Negative COVID-19 Clin Com See Note Assessment and Plan (1) Nausea & vomiting: Status: Acute (2) GIL (acute kidney injury): Status: Acute (3) CKD (chronic kidney disease) stage 5, GFR less than 15 ml/min: Status: Acute Plan d#5 67yo F with CKD5, chronic HFrEF, DM2, prior CVA presenting with N/V/D and admitted for GIL/CKD5 with hyperK # urinary retention - Urology consulted, start bethanechol + tamsulosin, ISC for PVR >350 mL, check PVR q6h # GIL/CKD5 - SCr back at baseline after fluid repletion, Nephro following - continue bicarbonate supplementation # hyperK - continue SZC 10g daily, recheck BMP in AM # N/V/D - resolved, no pathogens on GI panel # bacteruria # aspiration - per ID no evidence of bacterial infection, so ABX discontinued - per DETECTOR CAR OPERATOR REGULAR solids and THIN liquids, pills WHOLE in PUREE or LIQUID per pt's tolerance # HTN # chronic HFrEF - continue amlodipine, carvedilol, furosemide # hx CVA - continue clopidogrel # DM2 - basal-bolus insulin # VTE ppx: UFH # dispo: anticipate back to LTC when can manage urinary retention + hyperK In my clinical judgment, the patient requires continued inpatient hospitalization for the following reasons: hyperK, urinary retention Time Spent With Patient Time: Total time managing care of this patient today __35__ minutes. Quality Stroke Does the patient have a stroke diagnosis?: No VTE Prior VTE?: No VTE Risk Level:: Medical - moderate - high VTE Device Contraindication: Treatment Not Indicated VTE Drug Contraindication: N/A - Med Ordered
--- NOTE | 2022-10-18 14:58 | MHC.SL.SWA ---
Speech Pathologist Impression: Risk of Aspiration Due to: Dysphasia Diet Status: Regular diet with thin liquids, pills whole with liquid or puree. Liquid Consistency and Strategies for Safe Swallow: Liquid Intake Recommendation: Thin Liquid Intake Strategies: Small Sips Solid Food Consistency: Dietary Recommendations: Regular Additional Modifications to Solid Foods: Pt seen for clinical swallow evaluation this morning. Pt consumed applesauce, elsa crackers, and water w/o any s/s of aspiration, unremarkable oral phase. Recommend 1:1 supervision to ensure tolerance, safe eating behaviors. Recommend upgrade to REGULAR solids and continue with THIN liquids, pills WHOLE in PUREE or LIQUID per pt's tolerance. Diet order updated by CHOCOLATE FINISHER OPERATOR. Care Team (MD, RN, RD) notified via [place] Message. CHOCOLATE FINISHER OPERATOR to f/u 1x time to ensure tolerance of unmodified diet. Oral Medication Intake: Whole with Puree Please contact the pharmacy regarding appropriate crushable or liquid drug formulations that are available whenever modified delivery is recommended. Compensatory Strategies and Precautions to be Taken for Safe Swallow: Sitting Upright (90 deg) Small Bites and Sips Supervision While Eating and Drinking for Safe Swallow: None Needed Foods to Avoid: Hard, tough to chew solids Swallowing Recommended Treatments: Recommendation for Speech: Inpatient Speech Therapy Comment: Patient seen for clinical swallow on 10/17/22 with findings all aspects of swallow WFL, put on regular diet with thin liquids. Patient seen today during lunch with daughter and other family members present in room. Patient reportedly was having some bladder retention issues at the time of the visit, had just had an ultrasound and was being followed by the urologist, however daughter had ongoing questions about whether or not to give her mother liquids, which was discouraged per RN recommendation. Daughter had brought food from home, did not wish to give her mother food from tray from cafeteria. Daughter reported that her mother had been eating and drinking fine, only concern was bladder retention. Observed daughter giving mother meal of rice and beans, soup, yucca. Patient evidenced no difficulty with meal. Recommend patient continue on current diet of REGULAR with THIN liquids, pills whole with liquid. Will DC speech at the time as all aspects of swallow WFL, patient tolerating regular diet. Frequency/Duration: Date Range for Service Req: Timeline to reassess: Director Title Clinican/Clinical Fellow: No Supervisory Statement: I have reviewed and agree with the student/clinical fellow's documentation: N/A Speech Language Pathologist: Reshma White M.A., [facility] FINISHER OPERATOR
[2022-10-18 15:28] LABS: Glucose, Whole Blood 172 mg/dL (60-115)
[2022-10-18 15:32] VITALS: BP 133/62; PULSE 70; RESP 17; TEMP 36.7; O2SAT 95
[2022-10-18 20:00] VITALS: BP 143/60; PULSE 69; RESP 20; TEMP 37.5; O2SAT 98
[2022-10-18 20:00] LABS: Glucose, Whole Blood 165 mg/dL (60-115)
[2022-10-18] MEDS: Aspirin Enteric Coated 81 MG TABLET.DR PO (20:28)
[2022-10-18] MEDS: Acetaminophen 325 MG TABLET 650 MG PO (20:28)
[2022-10-18] MEDS: Atorvastatin Calcium 80 MG TABLET PO (20:28)
[2022-10-18] MEDS: Tamsulosin HCL 0.4 MG CAPSULE PO (20:28)
[2022-10-18] MEDS: traZODone HCL 50 MG TABLET PO (20:28)
[2022-10-19] VITALS: BP 140/60; PULSE 64; RESP 20; TEMP 36.8; O2SAT 97
[2022-10-19 04:00] VITALS: BP 146/65; PULSE 65; RESP 20; TEMP 36.6; O2SAT 93
[2022-10-19 07:29] VITALS: BP 154/70; PULSE 68; RESP 16; TEMP 36.7; O2SAT 98
[2022-10-19 07:48] LABS: Glucose, Whole Blood 97 mg/dL (60-115)
[2022-10-19] MEDS: Heparin Sodium,Porcine 5,000 UNIT/ML VIAL 5000 UNIT SUBCUT (08:18)
[2022-10-19] MEDS: amLODIPine Besylate 10 MG TABLET PO (08:19)
[2022-10-19] MEDS: Sodium Zirconium Cyclosilicate 10 GM POWD.PACK PO (08:19)
[2022-10-19] MEDS: polyethylene glycoL 3350 17 GM POWD.PACK PO (08:19)
[2022-10-19] MEDS: Insulin Glargine,Hum.rec.anlog 100 UNIT/ML 10 ML VIAL 18 UNIT SUBCUT (08:19)
[2022-10-19] MEDS: Famotidine 20 MG TABLET PO (08:20)
[2022-10-19] MEDS: Sodium Bicarbonate 650 MG TABLET PO (08:21)
[2022-10-19] MEDS: Sertraline HCL 50 MG TABLET PO (08:21)
[2022-10-19] MEDS: carvediloL 6.25 MG TABLET PO (08:21)
[2022-10-19] MEDS: Clopidogrel Bisulfate 75 MG TABLET PO (08:21)
[2022-10-19] MEDS: Furosemide 40 MG TABLET PO (08:21)
[2022-10-19] MEDS: 0.9 % Sodium Chloride Flush 3 ML SYRINGE IVFLUSH ×2 (08:33)
[2022-10-19 09:13] LABS: Anion Gap 15 (12-20); Blood Urea Nitrogen 45 mg/dL (9-16); Calcium 8.9 mg/dL (8.4-10.2); Carbon Dioxide 25 mmol/L (22-29); Chloride 106 mmol/L (96-108); Creatinine Clr Calc Pharmacy 13.9; Estimated Glomerular Filt Rate 14; Glucose Random 128 mg/dL (60-115); Potassium 5.1 mmol/L (3.3-5.1); Sodium 141 mmol/L (135-145)
[2022-10-19] MEDS: Calcium + Vitamin D 250 MG TABLET PO (10:23)
[2022-10-19] MEDS: Bethanechol Chloride 25 MG TABLET PO (10:23)
--- NOTE | 2022-10-19 10:41 | PM.PNNEP ---
Subjective Subjective Date of Service: 10/19/22 Interval history: Events noted urinary retention- has to push to empty bladder. PVR 767 mL. K l high No N/V/D Physical Exam Vital Signs: Vital Signs: Last Vital Signs Temp 98.1 F 10/19/22 07:29 Pulse 68 10/19/22 07:29 Resp 16 10/19/22 07:29 BP 154/70 H 10/19/22 07:29 Pulse Ox 98 10/19/22 07:29 O2 Del Method 10/19/22 07:29 BMI result Body Mass Index 33.1 Const: General: no acute distress HEENT: Head: Yes normocephalic and Yes atraumatic Neck: Neck: Yes supple Resp: Auscultation: diminished lung sounds Cardio: Heart sounds: S1 normal heart sound present and S2 normal heart sound present GI: Palpation (GI): Soft to palpation and nontender Extrem: General: No clubbing and No cyanosis Objective Data Labs 10/17/22 06:06 10/19/22 08:24 Labs: Laboratory Results - last 24 hr 10/18/22 10/18/22 10/18/22 11:00 11:06 15:10 Sodium Potassium Chloride Carbon Dioxide Anion Gap BUN Creatinine Estim Creat Clear Calc Estimated GFR POC Glucose 186 H 172 H Random Glucose Calcium COVID-19 ([facility]) Negative COVID-19 Clin Com See Note 10/18/22 10/19/22 10/19/22 19:47 07:32 08:24 Sodium 141 Potassium 5.1 Chloride 106 Carbon Dioxide 25 Anion Gap 15 BUN 45 H Creatinine 3.37 H Estim Creat Clear Calc 13.9 Estimated GFR 14 POC Glucose 165 H 97 Random Glucose 128 H Calcium 8.9 COVID-19 ([facility]) COVID-19 Clin Com Microbiology Microbiology Results: Microbiology 10/14/22 20:12 Blood - Venous Blood Culture - Preliminary No growth after 48 hours. 10/14/22 20:12 Blood - Venous Blood Culture - Preliminary No growth after 48 hours. 10/14/22 00:00 Urine clean catch - Urine chery top Urine Culture - Final Procedures Date of Service Date of Service: 10/19/22 Assessment & Plan Assessment and plan (1) GIL (acute kidney injury): Status: Acute (2) Hyperkalemia: Status: Acute (3) Metabolic acidosis: Status: Acute (4) Anemia: Status: Acute (5) CKD (chronic kidney disease) stage 5, GFR less than 15 ml/min: Status: Acute Plan kidney function at baseline GIL superimposed on advanced CKD Urinary retention probably renal hypoperfusion given clinical presentation known advanced CKD due to DM/HTN baseline Scr ~ 3.5-4 mg/dl elevated serum potassium due to decreased distal flow anemia due to CKD REC sodium zirconium 10 g if K > 5.2 c/w NaHCO3 orally protect non dominant arm no indication for CANDY DEPOSITING MACHINE OPERATOR follow kidney function and electrolytes Time Spent With Patient Time: Total time managing care of this patient today ____ minutes. Progress Note: Quality Stroke Does the patient have a stroke diagnosis?: No
[2022-10-19 11:12] VITALS: BP 140/67; PULSE 68; RESP 16; TEMP 36.7; O2SAT 97
[2022-10-19 11:40] LABS: Glucose, Whole Blood 176 mg/dL (60-115)
--- NOTE | 2022-10-19 11:52 | PM.DS ---
DS: Providers Provider Date of Service: 10/19/22 Date of admission: 10/14/22 21:24 Date of discharge: 10/19/22 Primary care physician: Alexys Avila MD Consults: 10/14/22 21:29 Consult to Nephrology Routine Consulting Provider: [facility] Reason for consultation: GIL on CKD Has provider been notified: No 10/15/22 07:05 Consult to General Surgery Routine Consulting Provider: Fred Wisdom Reason for consultation: left index finger surgery in Sep, suture in place,also abd wall abd on CT? Has provider been notified: No 10/15/22 07:15 Consult to Infectious Diseases Routine Consulting Provider: Jocy Joya Reason for consultation: UTI, Hx of Klebsiella 10/15/22 08:40 Consult to Infectious Diseases Routine Consulting Provider: Jocy Joya Reason for consultation: restricted antibiotic Has provider been notified: No 10/18/22 10:52 Consult to Urology Routine Consulting Provider: Roselia Hoyt Reason for consultation: urinary retention DS: Diagnosis Discharge Diagnosis (1) GIL (acute kidney injury): Status: Acute (2) Hyperkalemia: Status: Acute (3) CKD (chronic kidney disease) stage 5, GFR less than 15 ml/min: Status: Acute (4) Urinary retention: Status: Acute (5) Nausea & vomiting: Status: Acute DS: Summary Hospital Course Hospital Course: from admission H+P by hospitalist Hernán Malave, 10/14/22: 67-year-old female with past medical history of CKD stage 5, CHF, diabetes, GERD, HLD, HTN CAD, and type 2 diabetes presents to the hospital with nausea vomiting as well as her daughter being worried that her labs may be abnormal due to her history of hyperkalemia.? Symptoms started 3 days ago, she has severe nausea vomiting and intolerance to Po intake.? Reports multiple episodes of diarrhea, that have improved today but reports no abdominal pain, reports no fever, has chills chronically,? reports no shortness of breath, no cough, no orthopnea PND, no lower extremity edema.? Denies any urinary symptoms.? ?while in the ED patient was given Gross's by her daughter, I noticed that the patient was coughing every time she took a by, when asked her daughter about any difficulty swallowing daughter reports that she does cough and chokes on her food.? Patient reports that she has had swallow studies in the past but when I looked into the system there is no evidence of speech studies in the past. ?on arrival to the ED patient hemodynamically stable Labs are significant for? WBC count of 11.1, hemoglobin of 11, hematocrit 35.6 , potassium of 6.7, creatinine of 4.65 which increased from for and 3.86 previously respectively, UA positive for leukocyte Estrace and WBC, Abdomen pelvic CT shows moderate to large stool content in the colon and rectum with rectal wall thickening but no significant perirectal fat stranding, gastroparesis, Chest x-ray shows diffuse interstitial patchy does not perihilar all prominence increased compared to previous? study, suggestive of atypical / viral infection This 67yo F with CKD5, chronic HFrEF, DM2, prior CVA presenting with N/V/D was admitted for GIL/CKD5 with hyperK. She also complained of longstanding urinary retention/incomplete voiding. Hospital course by problem: # urinary retention - Urology consulted. Started bethanechol + tamsulosin. Recommend intermittent straight-catheterization for PVR >350 mL [to check PVR q8h]; outpatient Urology follow-up in 2 weeks. # GIL/CKD5 - SCr back at baseline after fluid repletion. Followed by Nephrology. Recheck BMP in 2 days and follow up with Nephrology in 2 weeks. # hyperK - Placed on Lokelma 10g daily. K 5.1 on day of discharge; recheck BMP in 2 days. # N/V/D - Resolved; no pathogens on GI panel. # bacteruria # aspiration - per ID no evidence of bacterial infection, so ABX discontinued - per [employer]: REGULAR solids and THIN liquids, pills WHOLE in PUREE or LIQUID per pt's tolerance She was discharged back to [facility] for long-term nursing care. Time Spent with Patient Time attestation: Total time managing care of this patient today ____ minutes. Discharge coordination time: Greater than 30 minutes Quality: Safe Use of Opioids Does Pt have an Active Cancer Diagnosis on the Problem List?: No Quality: Stroke Does the patient have a stroke diagnosis?: No Physical Exam Vital Signs: Vital Signs: Last Vital Signs Temp 98.1 F 10/19/22 11:12 Pulse 68 10/19/22 11:12 Resp 16 10/19/22 11:12 BP 140/67 H 10/19/22 11:12 Pulse Ox 97 10/19/22 11:12 O2 Del Method 10/19/22 11:12 BMI result Body Mass Index 33.1 Const: Other: Temperature 98.1 F 10/19/22 11:12 Pulse Rate 68 10/19/22 11:12 Respiratory Rate 16 10/19/22 11:12 Blood Pressure 140/67 H 10/19/22 11:12 Pulse Oximetry 97 10/19/22 11:12 Oxygen Delivery Me thod 10/19/22 11:12 Gen: in no acute distress HEENT: sclera anicteric, moist mucus membranes Neck: supple Lungs: clear to auscultation bilaterally Heart: regular rate and rhythm, no murmurs Abd: soft, non-tender, non-distended Ext: no edema Skin: warm/well-perfused Neuro: alert and oriented x3, no focal findings Psych: appropriate affect ? DS: Data Data Completed and Pending Completed studies during hospitalization [Text1]: Laboratory Results WBC 7.8 X10*3/uL (4.8-10.8) 10/17/22 06:06 RBC 3.60 X10*6/uL (4.20-5.50) L 10/17/22 06:06 Hgb 9.4 g/dl (12.0-16.0) L 10/17/22 06:06 Hct 30.3 % (37.0-47.0) L 10/17/22 06:06 MCV 84.2 fL (80.0-98.0) 10/17/22 06:06 MCH 26.1 pg (27.0-33.0) L 10/17/22 06:06 MCHC 31.0 g/dl (31.0-35.0) 10/17/22 06:06 RDW 13.9 % (11.0-16.0) 10/17/22 06:06 Plt Count 224 X10*3/uL (160-400) 10/17/22 06:06 MPV 10.4 fL (9.4-12.3) 10/17/22 06:06 Immature Gran % (Auto) 0.4 % (0.0-0.4) 10/17/22 06:06 Neut % (Auto) 60.0 % (45-73) 10/17/22 06:06 Lymph % (Auto) 25.2 % (20-40) 10/17/22 06:06 Riley % (Auto) 7.9 % (2-11) 10/17/22 06:06 Eos % (Auto) 6.1 % (0-4) H 10/17/22 06:06 Baso % (Auto) 0.4 % (0-2) 10/17/22 06:06 Lymph # (Auto) 2.0 X10*3/uL (1.2-4.9) 10/17/22 06:06 Riley # (Auto) 0.6 X10*3/uL (0.1-1.2) 10/17/22 06:06 Eos # (Auto) 0.5 X10*3/uL (0.0-0.4) H 10/17/22 06:06 Baso # (Auto) 0.0 X10*3/uL (0.0-0.2) 10/17/22 06:06 Abs Immat Gran (auto) 0.03 X10*3/uL (0.00-0.03) 10/17/22 06:06 Absolute Neuts (auto) 4.7 x10*3/uL (2.0-8.3) 10/17/22 06:06 Absolute Nucleated RBC 0.000 X10*3/uL (0.0-0.012) 10/17/22 06:06 Nucleated RBC % (auto) 0.0 /100WBC (0.0-0.2) 10/17/22 06:06 Sodium 141 mmol/L (135-145) 10/19/22 08:24 Potassium 5.1 mmol/L (3.3-5.1) 10/19/22 08:24 Chloride 106 mmol/L (96-108) 10/19/22 08:24 Carbon Dioxide 25 mmol/L (22-29) 10/19/22 08:24 Anion Gap 15 (12-20) 10/19/22 08:24 BUN 45 mg/dL (9-16) H 10/19/22 08:24 Creatinine 3.37 mg/dL (0.5-1.4) H 10/19/22 08:24 Estim Creat Clear Calc 13.9 10/19/22 08:24 Estimated GFR 14 10/19/22 08:24 POC Glucose 176 mg/dL (60-115) H 10/19/22 11:16 Random Glucose 128 mg/dL (60-115) H 10/19/22 08:24 Fasting Glucose 148 mg/dL (60-99) H 10/17/22 06:06 Calcium 8.9 mg/dL (8.4-10.2) 10/19/22 08:24 Magnesium 2.3 mg/dL (1.6-2.6) 10/14/22 12:35 Total Bilirubin 0.3 mg/dL (0.0-1.0) 10/17/22 06:06 Direct Bilirubin < 0.2 mg/dL (0.0-0.5) 10/14/22 12:35 AST 12 U/L (5-31) 10/17/22 06:06 ALT 7 U/L (0-31) 10/17/22 06:06 Alkaline Phosphatase 122 U/L (39-117) H 10/17/22 06:06 B-Natriuretic Peptide 409 pg/mL (<100) H 10/14/22 22:20 Total Protein 7.0 g/dL (6.5-8.0) 10/17/22 06:06 Albumin 3.4 g/dL (3.5-5.0) L 10/17/22 06:06 Lipase 22 U/L (8-78) 10/14/22 12:35 Procalcitonin 0.07 ng/mL 10/17/22 06:06 Urine Color Yellow 10/14/22 13:38 Urine Appearance Cloudy 10/14/22 13:38 Urine pH >= 9.0 (5.0-9.0) 10/14/22 13:38 Ur Specific [place] 1.015 (1.005-1.025) 10/14/22 13:38 Urine Protein 300 (3+) mg/dL (Neg-Trace) H 10/14/22 13:38 Urine Glucose (UA) Negative mg/dL (Negative) 10/14/22 13:38 Urine Ketones Negative mg/dL (Negative) 10/14/22 13:38 Urine Blood Negative (Negative) 10/14/22 13:38 Urine Nitrite Negative (Negative) 10/14/22 13:38 Ur Leukocyte Esterase Moderate (2+) (Negative) H 10/14/22 13:38 Urine RBC 0-2 /HPF (0-2) 10/14/22 13:38 Urine WBC >50 /HPF (0-5) H 10/14/22 13:38 Ur Squamous Epith Cells 0-2 /HPF (0-2) 10/14/22 13:38 Urine Bacteria 4+ (None Seen) 10/14/22 13:38 Hyaline Casts 0-2 /LPF (0-2) 10/14/22 13:38 Stl C. cayetanensis PCR Not Detected (Not Detect.) 10/16/22 13:30 Stool Rotavirus A PCR Not Detected (Not Detect.) 10/16/22 13:30 Stl Adenov F 40/41 PCR Not Detected (Not Detect.) 10/16/22 13: Stool Astrovirus (PCR) Not Detected (Not Detect.) 10/16/22 13:30 Stool Campylobacter PCR Not Detected (Not Detect.) 10/16/22 13:30 Stool Cryptosporidium PCR Not Detected (Not Detect.) 10/16/22 13:30 Stl Sh Tox Pr E STEC PCR Not Detected (Not Detect.) 10/16/22 13:30 Stool E coli O157 PCR Not applicable (Not Detect.) 10/16/22 13:30 Stl Enterotoxigenic E PCR Not Detected (Not Detect.) 10/16/22 13:30 Stool EPEC (PCR) Not Detected (Not Detect.) 10/16/22 13:30 Stool EAEC (PCR) Not Detected (Not Detect.) 10/16/22 13:30 Stl E. histolytica PCR Not Detected (Not Detect.) 10/16/22 13:30 Stool Giardia Lamblia PCR Not Detected (Not Detect.) 10/16/22 13:30 Stl P. shigelloides PCR Not Detected (Not Detect.) 10/16/22 13:30 Stool Salmonella PCR Not Detected (Not Detect.) 10/16/22 13:30 Stool Sapovirus (PCR) Not Detected (Not Detect.) 10/16/22 13:30 Stl Shigella/EIEC PCR Not Detected (Not Detect.) 10/16/22 13:30 St Y.enterocolitica PCR Not Detected (Not Detect.) 10/16/22 13:30 Stool Vibrio (PCR) Not Detected (Not Detect.) 10/16/22 13:30 Stl Vibrio cholerae PCR Not Detected (Not Detect.) 10/16/22 13:30 Stl Norovirus GI/GII PCR Not Detected (Not Detect.) 10/16/22 13:30 C. difficile Tox B Gene NEGATIVE (Negative) 10/16/22 13:30 COVID-19 (LUCIUS) Negative (Negative) 10/18/22 11:00 COVID-19 Clin Com See Note 10/18/22 11:00 Influenza Type A (PCR) NEGATIVE (Negative) 10/14/22 12:35 Influenza Type B (PCR) NEGATIVE (Negative) 10/14/22 12:35 RSV RNA Qual (PCR) NEGATIVE (Negative) 10/14/22 12:35 SARS-CoV-2 RNA (RT-PCR) NEGATIVE (Negative) 10/14/22 12:35 Impressions Abdomen/Pelvis CT 10/14/22 21:45 IMPRESSION: 1. Moderate to large stool content in the colon and rectum with questionable rectal wall thickening but no significant perirectal fat stranding. Findings could be related with constipation and early stercoral colitis in the appropriate clinical context. 2. Nonspecific gastric distention with heterogeneous and mixed density debris. Correlate clinically for gastroparesis. 3. Increased soft tissue thickening of the abdominal wall anterior to the lower abdominal hernial mesh, recommend correlation with physical examination for signs of infection. 4. Increased skin thickening with mild fat stranding of the intergluteal folds, recommend correlation with physical examination for decubitus ulcers or infection. Chest X-Ray 10/14/22 21:45 IMPRESSION: Diffuse interstitial patchiness and perihilar prominence, increased compared to 05/05/2022; findings are suggestive of an atypical/viral infection. Recommend follow-up after treatment. Discharge Plan Discharge Anticipated Discharge Date/Time: 10/19/22 11:47 Patient Disposition: [facility] Discharge Diagnosis: # urinary retention # GIL/CKD5 # hyperK # N/V/D [facility]errals: [facility] [Other] - 1 Week Roselia Hoyt MD [Physician] - 1 Week Alexys Avila MD [Primary Care Provider] - 1 Week Discharge Medications: New bethanechol chloride 25 mg Tablet 25 mg PO BID Qty: 60 0RF tamsulosin 0.4 mg Capsule 0.4 mg PO BEDTIME Qty: 30 0RF Lokelma 10 gram Powder In Packet 10 g PO DAILY Qty: 30 0RF Continued carvedilol 6.25 mg tablet 6.25 mg PO BID Qty: 60 5RF Rx Instructions: must administer with a meal/food - Take one tablet twice daily atorvastatin 80 mg tablet 80 mg PO BEDTIME trazodone 50 mg tablet 50 mg PO BEDTIME clopidogrel 75 mg tablet 75 mg PO DAILY aspirin 81 mg tablet,delayed release (DR/EC) 81 mg PO BEDTIME magnesium oxide 400 mg (241.3 mg magnesium) tablet 400 mg PO BID sertraline 50 mg tablet 50 mg PO DAILY calcium carbonate-vitamin D3 600 mg(1,500mg) -400 unit tablet 1 tab PO BID insulin glargine [Lantus Solostar U-100 Insulin] 100 unit/mL (3 mL) insulin pen 18 unit subcut DAILY oxycodone 5 mg tablet 5 mg PO Q6H PRN (Reason: pain) Qty: 20 0RF Rx Instructions: Partial Fill upon patient request. amlodipine 10 mg Tablet 10 mg PO DAILY 30 Days Qty: 30 0RF Protocol: Hold for SBP< HOLD for SBP < : 90 famotidine 40 mg tablet 40 mg PO BID 30 Days Qty: 60 0RF sodium bicarbonate 650 mg Tablet 650 mg PO BID 30 Days Qty: 60 0RF ipratropium-albuterol 0.5 mg-3 mg(2.5 mg base)/3 mL Solution For Nebulization 3 ml INHALATION Q4H PRN (Reason: Wheezing) insulin lispro [Humalog U-100 Insulin] 100 unit/mL solution See Protocol subcut QIDACHS Protocol: Insulin Correction Scale Less than or equal to 110 ---- Give (units): 0 111 to 150 Give (units): 0 151 to 200 Give (units): 2 201 to 250 Give (units): 4 251 to 300 Give (units): 6 301 to 350 Give (units): 8 Greater than 350 Give (units): 10 Call MD if Blood Glucose > : 350 Rx Instructions: sliding scale furosemide [Lasix] 40 mg tablet 40 mg PO BIDWM Rx Instructions: Please call and schedule cardiology appt. naloxone 0.4 mg/mL Solution 0.4 mg SUBCUT Q3M PRN (Reason: Opioid Overdose) Rx Instructions: NTExceed 10 mg total dose/episode acetaminophen 500 mg Tablet 1,000 mg PO Q6H PRN (Reason: Fever Or Pain) Rx Instructions: do not exceed 3 grams / 24 hours magnesium hydroxide [Milk of Magnesia] 400 mg/5 mL Suspension 30 ml PO DAILY PRN (Reason: Constipation) Rx Instructions: do not administer with dialysis/ renal failure bisacodyl 10 mg Suppository 10 mg MO DAILY PRN (Reason: Constipation) Rx Instructions: use if milk of magnesia ineffective Fleet Enema 19-7 gram/118 mL Enema 118 ml MO DAILY PRN (Reason: Constipation) Rx Instructions: use if Bisacodyl is ineffective Discharge Orders: Discharge Order (Routine); Ordered 10/19/22 Ordered By: Candido Noe Diet: Diabetic diet Activity on Discharge: As tolerated Stand Alone Forms: Patient Portal Discharge page Care Plan Goals: renal health normal urination Health Concerns: ?# urinary retention - Urology consulted, start bethanechol + tamsulosin - check bladder scan q8h, if PVR >350 mL please straight catheterize - follow up with Urology in 2 weeks # GIL/CKD5 - SCr back at baseline after fluid repletion - continue sodium bicarbonate - recheck BMP in 2 days - follow up with Nephrology in 2 weeks # hyperK - continue Lokelma 10 g daily, recheck BMP in 2 days # N/V/D - resolved Plan of Treatment: see above Assessment: See Discharge Summary.
== END 2022-10-19 12:50 | disposition skilled nursing facility (03) | DRG 291 ==
LOC: HO.ED 16:36 → HO.EDOVER 21:33 → HO.IMC 10-15 01:21
PROVIDERS: Hospitalist; Physician Assistant; Admitting Provider Internal Medicine; Emergency Provider Emergency Medicine; PCP Internal Medicine; Visit Provider Family Medicine
DX: I13.2 Hypertensive heart and chronic kidney disease with heart failure and with stage 5 chronic kidney disease, or end stage renal disease (principal); J69.0 Pneumonitis due to inhalation of food and vomit; N17.9 Acute kidney failure, unspecified; N18.5 Chronic kidney disease, stage 5; E87.20 Acidosis, unspecified; E11.22 Type 2 diabetes mellitus with diabetic chronic kidney disease; E87.5 Hyperkalemia; I50.32 Chronic diastolic (congestive) heart failure; D63.1 Anemia in chronic kidney disease; E78.5 Hyperlipidemia, unspecified; K59.00 Constipation, unspecified; K21.9 Gastro-esophageal reflux disease without esophagitis; R33.9 Retention of urine, unspecified; Z20.822 Contact with and (suspected) exposure to COVID-19; Z86.73 Personal history of transient ischemic attack (TIA), and cerebral infarction without residual deficits; Z89.512 Acquired absence of left leg below knee; Z91.040 Latex allergy status; Z79.4 Long term (current) use of insulin; Z79.02 Long term (current) use of antithrombotics/antiplatelets; Z79.82 Long term (current) use of aspirin; Z79.899 Other long term (current) drug therapy
CPT/HCPCS: 0241U; 36415; 71045; 74176; 80048; 80053; 80076; 81001; 82947; 83690; 83735; 83880; 84145; 85025; 87040; 87086; 87493; 87507; 87635; 92526; 92610; 93005; 94640; 99285; J0611; J0696; J1643; J2185; J2543

== ENCOUNTER → 2022-10-26 10:13 | Outpatient (BNVA) | payer OTHER, SELFPAY | PROVIDERS: Visit Provider Orthopaedic Surgery | DX: Z13.89 Encounter for screening for other disorder (principal) ==

== ENCOUNTER 2022-12-18 17:32 | Emergency (ER) | payer OTHER, SELFPAY ==
--- NOTE | ~2022-12-18 | CT_ITS ---
EXAMINATION: CT ABDOMEN AND PELVIS WITHOUT CONTRAST CLINICAL INFORMATION: Abdominal pain COMPARISON: CT scan abdomen pelvis 10/14/2022 TECHNIQUE: Multidetector volumetric imaging was performed from the superior aspect of the liver through the pubic symphysis. Sagittal and coronal reformatted images were obtained on the technologist's workstation. This CT examination was performed using dose optimization techniques as appropriate, variously including the following: *Automated exposure control *Adjustment of mA and/or kV according to patient size (this includes techniques or standardized protocols for targeted exams where dose is matched to indication/reason for exam; i.e. extremities or head) *Use of iterative reconstruction technique DLP: 661 mGy-cm FINDINGS: LUNG BASES: Bibasilar dependent atelectasis/consolidation. Small bilateral pleural effusions. Heart size is enlarged. Coronary calcification. Vascular calcifications of aorta. No aneurysm of the aorta. LIVER, GALLBLADDER, AND BILIARY TREE: The liver is normal in size, shape, and attenuation. No focal hepatic lesion or biliary ductal dilatation is present. Status post cholecystectomy PANCREAS: Pancreas is atrophic. No inflammation or mass. The pancreatic duct dilatation. SPLEEN: Unremarkable. ADRENAL GLANDS: Unremarkable. KIDNEYS AND URETERS: The kidneys are normal in size, shape, and attenuation. No hydronephrosis, hydroureter, or calculi seen. No perinephric stranding. BLADDER: Unremarkable. GASTROINTESTINAL TRACT: Contrast within the colon. There are scattered diverticula of the colon. There is no diverticulitis. There is no bowel wall thickening /edema. There is no bowel obstruction. There is a moderate volume of stool in the colon. The appendix is normal . Surgical anastomosis small bowel loops in the low pelvis. No acute change of the small bowel. The stomach is normal. There is no hiatal hernia. ABDOMINAL WALL: Surgical mesh lower anterior pelvic wall. No ventral wall hernia. There is generalized anasarca. LYMPH NODES: Normal. VASCULAR: Vascular calcifications throughout the abdomen and the pelvis. No aneurysm. PELVIC VISCERA: Status post hysterectomy. No pelvic mass. No fluid collections. OSSEOUS STRUCTURES: Degenerative spondylosis spine. No acute osseous abnormality. CT/CT abdomen pelvis wo IV con IMPRESSION: 1. Bibasilar dependent atelectasis/consolidation with small bilateral pleural effusions. 2. No acute abnormality the abdomen or the pelvis. Fleischner guidelines were followed.
--- NOTE | ~2022-12-18 | XR_ITS ---
EXAMINATION: CR CHEST CLINICAL INFORMATION: Shortness of breath. COMPARISON: Chest x-ray dated 10/14/2022 and older exams. TECHNIQUE: AP upright portable view of the chest was obtained. FINDINGS: EKG leads overlie the chest. The cardiomediastinal silhouette is borderline enlarged.. Central vascular congestion is noted. There are diffuse bilateral perihilar patchy parenchymal opacities again seen, most prominent in the lung bases bilaterally, perhaps slightly progressive when compared to the prior exam. No redistribution of vessels of peripheral Sarbjit B lines are seen. There is some indistinctness of the CP angles, consistent with trace effusions. Chronic deformity of the left humeral head and superior subluxation of both humeral head seen, suggesting underlying rotator cuff tears. Moderate vertebral spondylosis in mid and lower thoracic spine seen. XR/XR chest 1V IMPRESSION: Bilateral perihilar patchy parenchymal opacities are seen, perhaps slightly progressive when compared to the prior study with associated trace bilateral effusions. Findings are nonspecific and may be related to mild pulmonary edema versus a diffuse viral or atypical pneumonia. Close clinical correlation and follow-up is recommended.
[2022-12-18 17:49] VITALS: BP 121/45; PULSE 60; RESP 16; TEMP 36.8; O2SAT 92; BMI 25.4
--- NOTE | 2022-12-18 18:07 | ECG_ITS ---
Test Reason : ABDOMINAL PAIN Blood Pressure : / mmHG Vent. Rate : 058 BPM Atrial Rate : 058 BPM P-R Int : 172 ms QRS Dur : 114 ms QT Int : 514 ms P-R-T Axes : 000 043 -81 degrees QTc Int : 504 ms Sinus bradycardia Cannot rule out Anterior infarct , age undetermined ST & T wave abnormality, consider inferolateral ischemia Abnormal ECG When compared with ECG of 14-OCT-2022 13:42, QRS duration has decreased ST less depressed in Lateral leads Referred By: Radha Leon Electronically Signed By:Nik Lou
--- NOTE | 2022-12-18 18:08 | ED.SOB ---
HPI - SOB/Dyspnea General Chief Complaint: Abdominal Pain Stated Complaint: fluid in abdomen Time Seen by Provider: 12/18/22 17:36 History of Present Illness HPI Narrative: Patient is a 67-year-old female with a history of CVA history of urinary retention, history of chronic kidney disease not on dialysis. History of having shortness of breath generalized malaise weakness. USP report a question abdominal pain. Patient denies. There is no nausea no vomiting no bloody stool. No abdominal pain. Patient is from longterm. No pain on urination. No coughing or congestion. No chest pain. [place] short of breath. Related Data Home Medications Medication Instructions Recorded Confirmed aspirin 81 mg tablet,delayed 81 mg PO BEDTIME 06/20/21 10/14/22 release atorvastatin 80 mg tablet 80 mg PO BEDTIME 06/20/21 10/14/22 calcium carbonate 600 mg-vitamin 1 tab PO BID 06/20/21 10/14/22 D3 10 mcg (400 unit) tablet clopidogrel 75 mg tablet 75 mg PO DAILY 06/20/21 10/14/22 magnesium oxide 400 mg (241.3 mg 400 mg PO BID 06/20/21 10/14/22 magnesium) tablet sertraline 50 mg tablet 50 mg PO DAILY 06/20/21 10/14/22 trazodone 50 mg tablet 50 mg PO BEDTIME 06/20/21 10/14/22 insulin glargine 100 unit/mL (3 18 unit subcut DAILY 03/25/22 10/14/22 mL) subcutaneous pen (Lantus Solostar U-100 Insulin) ipratropium 0.5 mg-albuterol 3 mg 3 ml inhalation Q4H PRN Wheezing 05/05/22 10/14/22 (2.5 mg base)/3 mL nebulization soln furosemide 40 mg tablet (Lasix) 40 mg PO BIDWM 10/14/22 10/14/22 insulin lispro 100 unit/mL See Protocol subcut QIDACHS 10/14/22 10/14/22 subcutaneous solution (Humalog U-100 Insulin) acetaminophen 500 mg tablet 1,000 mg PO Q6H PRN Fever Or Pain 10/15/22 10/15/22 bisacodyl 10 mg rectal suppository 10 mg MN DAILY PRN Constipation 10/15/22 10/15/22 magnesium hydroxide 400 mg/5 mL 30 ml PO DAILY PRN Constipation 10/15/22 10/15/22 oral suspension (Milk of Magnesia) naloxone 0.4 mg/mL injection 0.4 mg subcut Q3M PRN Opioid 10/15/22 10/15/22 solution Overdose sodium phosphates 19 gram-7 118 ml MN DAILY PRN Constipation 10/15/22 10/15/22 gram/118 mL enema (Fleet Enema) Previous Rx's Medication Instructions Recorded carvedilol 6.25 mg tablet 6.25 mg PO BID #60 tabs 02/21/22 amlodipine 10 mg tablet 10 mg PO DAILY 30 days #30 tabs 03/03/22 famotidine 40 mg tablet 40 mg PO BID 30 days #60 tabs 03/03/22 sodium bicarbonate 650 mg tablet 650 mg PO BID 30 days #60 tabs 03/03/22 oxycodone 5 mg tablet 5 mg PO Q6H PRN pain #20 tabs 09/21/22 bethanechol chloride 25 mg tablet 25 mg PO BID #60 tabs 10/19/22 sodium zirconium cyclosilicate 10 10 g PO DAILY #30 ea 10/19/22 gram oral powder packet (Lokelma) tamsulosin 0.4 mg capsule 0.4 mg PO BEDTIME #30 caps 10/19/22 Allergies Allergy/AdvReac Type Severity Reaction Status Date / Time latex [LATEX] Allergy Intermediate ITCHY Verified 12/18/22 17:49 Review of Systems Review of Systems: Positive shortness of breath generalized malaise Yes all other systems are reviewed and are negative PMFSH Past Medical History Attestation statement: The following information was validated with the patient. Medical History Abnormal abdominal CT scan Acute hyperkalemia Acute kidney injury superimposed on CKD Acute on chronic renal failure Acute UTI Acute worsening of stage 4 chronic kidney disease GIL (acute kidney injury) Anemia Anemia Aspiration into airway Blister of finger without infection Cardiomyopathy Cholecystectomy planned Chronic heart failure with preserved ejection fraction (HFpEF) Chronic kidney failure CKD (chronic kidney disease) CKD (chronic kidney disease) stage 3, GFR 30-59 ml/min CKD (chronic kidney disease) stage 4, GFR 15-29 ml/min CKD (chronic kidney disease) stage 5, GFR less than 15 ml/min CKD (chronic kidney disease) stage 5, GFR less than 15 ml/min CKD (chronic kidney disease), stage IV Congestive heart failure Constipation Diabetes Diabetes mellitus Elevated d-dimer Elevated troponin Essential hypertension Gastroparesis Generalized weakness GERD (gastroesophageal reflux disease) Hand pain Hernia HLD (hyperlipidemia) HTN (hypertension) Hyperkalemia Hypomagnesemia Irritable bowel syndrome with diarrhea Ischemic necrosis of finger Lightheadedness Low blood pressure Metabolic acidosis Nausea & vomiting Non-ST elevated myocardial infarction Nonischemic cardiomyopathy Normocytic anemia Other and unspecified hyperlipidemia Overflow diarrhea Pharyngoesophageal dysphagia Pneumonia Status post amputation of finger Type 2 diabetes mellitus with unspecified complications Urinary tract infection due to ESBL Klebsiella UTI (urinary tract infection) Surgical History H/O: hysterectomy History of esophagogastroduodenoscopy (EGD) Hx of colonoscopy Hx of eye surgery Family History Family History Father Lung cancer Mother Diabetes HTN (hypertension) Heart disease Sister Diabetes Heart disease Brother Heart disease Son Diabetes Daughter Diabetes Social History Social History Household Members: Caregiver Household Members Other:: SNF Housing: Halfway Do you presently have visiting nurse or other home services: No Unable to assess alcohol history related to: Unknown Alcohol intake: never Patient Tobacco Use Status: Never used Tobacco Second Hand Smoke Exposure: No Advance Directives: Yes Advance Directives Information Provided: No Advance Directives on File: No Advance Directives Date on File: 02/02/22 service: No Current occupational status: disabled Physical Exam Vital Signs: Vital Signs: Last Vital Signs Temp 98.2 F 12/18/22 17:49 Pulse 60 12/18/22 17:49 Resp 16 12/18/22 17:49 BP 121/45 L 12/18/22 17:49 Pulse Ox 92 12/18/22 17:49 O2 Del Method 12/18/22 17:49 BMI result Body Mass Index 25.4 Medications Administered Discontinued Medications Generic Name Dose Route Start Last Admin Trade Name Freq PRN Reason Stop Dose Admin Furosemide 40 mg 12/18/22 20:00 12/18/22 20:22 Furosemide 40 Mg/4 Ml Vial IVPUSH 12/18/22 20:01 40 mg ONCE ONE Administration Protocol Medical Decision Making Medical Decision Making [facility] Narrative: Patient chief complaint from the longterm was abdominal pain. On arrival patient complaining of no abdominal pain but is complaining of questions shortness of breath. Her O2 sats 92% on room air. Chest x-ray was done. Showed a question mild worsening of congestive heart failure. Patient's BNP was 1200. Given a dose of Lasix. Patient also complaining of question rectal pain. Rectal exam was done with nurse Rekha present. It showed brown stool. There is no rectal lesion noted. The stool was heme negative. Patient's hemoglobin is 7.7. Had had similar hemoglobins in the past. White count was normal. Patient unable to provide a urine. CT scan of the abdomen pelvis was negative for any acute findings. No obstruction no abscess no perforation. Question atelectasis noted. Patient slept in the emergency department after Lasix. Lying flat with no difficulty. Is in no respiratory distress. Feels much better. Case discussed with patient's daughter. [place] comfortable with discharge. Close follow-up on an outpatient basis. In stable condition. Differential Diagnosis Differential Diagnoses: The differential diagnosis associated with the presentation includes Admission/Observation Consideration of admission/observation: Escalation of care including admission/observation considered Lab Data [facility] Lab Attestation statement: I reviewed the patient's lab results. 12/18/22 18:34 12/18/22 18:34 Labs: Lab Results 12/18/22 12/18/22 12/18/22 Range/Units 18:34 18:34 18:34 WBC 9.3 (4.8-10.8) X10*3/uL RBC 3.04 L (4.20-5.50) X10*6/uL Hgb 7.7 L (12.0-16.0) g/dl Hct 24.2 L D (37.0-47.0) % MCV 79.6 L (80.0-98.0) fL MCH 25.3 L (27.0-33.0) pg MCHC 31.8 (31.0-35.0) g/dl RDW 14.6 (11.0-16.0) % Plt Count 221 (160-400) X10*3/uL MPV 10.7 (9.4-12.3) fL Immature Gran % (Auto) 0.4 (0.0-0.4) % Neut % (Auto) 69.9 (45-73) % Lymph % (Auto) 20.3 (20-40) % Fergus % (Auto) 6.7 (2-11) % Eos % (Auto) 2.4 (0-4) % Baso % (Auto) 0.3 (0-2) % Lymph # (Auto) 1.9 (1.2-4.9) X10*3/uL Fergus # (Auto) 0.6 (0.1-1.2) X10*3/uL Eos # (Auto) 0.2 (0.0-0.4) X10*3/uL Baso # (Auto) 0.0 (0.0-0.2) X10*3/uL Abs Immat Gran (auto) 0.04 H (0.00-0.03) X10*3/uL Absolute Neuts (auto) 6.5 (2.0-8.3) x10*3/uL Absolute Nucleated RBC 0.000 (0.0-0.012) X10*3/uL Nucleated RBC % (auto) 0.0 (0.0-0.2) /100WBC VBG pH (7.32-7.43) VBG pCO2 mmHg VBG pO2 mmHg VBG HCO3 (22-26) mmol/L VBG O2 Saturation % VBG Base Excess mmol/L Sodium 133 L (135-145) mmol/L Potassium 3.7 D (3.3-5.1) mmol/L Chloride 97 (96-108) mmol/L Carbon Dioxide 21 L (22-29) mmol/L Anion Gap 16 (12-20) BUN 54 H (9-16) mg/dL Creatinine 4.80 H* (0.5-1.4) mg/dL Estim Creat Clear Calc 8.8 Estimated GFR 9 Random Glucose 167 H (60-115) mg/dL Calcium 8.2 L D (8.4-10.2) mg/dL Total Bilirubin 0.4 (0.0-1.0) mg/dL Direct Bilirubin < 0.2 (0.0-0.5) mg/dL AST 15 (5-31) U/L ALT 7 (0-31) U/L Alkaline Phosphatase 143 H (39-117) U/L Troponin I High Sens 26.3 H (<3.5-17.0) ng/L B-Natriuretic Peptide (<100) pg/mL Total Protein 7.7 (6.5-8.0) g/dL Albumin 3.7 (3.5-5.0) g/dL Lipase 18 (8-78) U/L Stool Occult Blood (NEGATIVE) Influenza Type A (PCR) (Negative) Influenza Type B (PCR) (Negative) RSV RNA Qual (PCR) (Negative) SARS-CoV-2 RNA (RT-PCR) (Negative) 12/18/22 12/18/22 12/18/22 Range/Units 18:34 18:34 18:46 WBC (4.8-10.8) X10*3/uL RBC (4.20-5.50) X10*6/uL Hgb (12.0-16.0) g/dl Hct (37.0-47.0) % MCV (80.0-98.0) fL MCH (27.0-33.0) pg MCHC (31.0-35.0) g/dl RDW (11.0-16.0) % Plt Count (160-400) X10*3/uL MPV (9.4-12.3) fL Immature Gran % (Auto) (0.0-0.4) % Neut % (Auto) (45-73) % Lymph % (Auto) (20-40) % Fergus % (Auto) (2-11) % Eos % (Auto) (0-4) % Baso % (Auto) (0-2) % Lymph # (Auto) (1.2-4.9) X10*3/uL Fergus # (Auto) (0.1-1.2) X10*3/uL Eos # (Auto) (0.0-0.4) X10*3/uL Baso # (Auto) (0.0-0.2) X10*3/uL Abs Immat Gran (auto) (0.00-0.03) X10*3/uL Absolute Neuts (auto) (2.0-8.3) x10*3/uL Absolute Nucleated RBC (0.0-0.012) X10*3/uL Nucleated RBC % (auto) (0.0-0.2) /100WBC VBG pH 7.42 (7.32-7.43) VBG pCO2 33 mmHg VBG pO2 44 mmHg VBG HCO3 22 (22-26) mmol/L VBG O2 Saturation 69.0 % VBG Base Excess -1.6 mmol/L Sodium (135-145) mmol/L Potassium (3.3-5.1) mmol/L Chloride (96-108) mmol/L Carbon Dioxide (22-29) mmol/L Anion Gap (12-20) BUN (9-16) mg/dL Creatinine (0.5-1.4) mg/dL Estim Creat Clear Calc Estimated GFR Random Glucose (60-115) mg/dL Calcium (8.4-10.2) mg/dL Total Bilirubin (0.0-1.0) mg/dL Direct Bilirubin (0.0-0.5) mg/dL AST (5-31) U/L ALT (0-31) U/L Alkaline Phosphatase (39-117) U/L Troponin I High Sens (<3.5-17.0) ng/L B-Natriuretic Peptide 1345 H (<100) pg/mL Total Protein (6.5-8.0) g/dL Albumin (3.5-5.0) g/dL Lipase (8-78) U/L Stool Occult Blood (NEGATIVE) Influenza Type A (PCR) NEGATIVE (Negative) Influenza Type B (PCR) NEGATIVE (Negative) RSV RNA Qual (PCR) NEGATIVE (Negative) SARS-CoV-2 RNA (RT-PCR) NEGATIVE (Negative) 12/18/22 Range/Units 20:13 WBC (4.8-10.8) X10*3/uL RBC (4.20-5.50) X10*6/uL Hgb (12.0-16.0) g/dl Hct (37.0-47.0) % MCV (80.0-98.0) fL MCH (27.0-33.0) pg MCHC (31.0-35.0) g/dl RDW (11.0-16.0) % Plt Count (160-400) X10*3/uL MPV (9.4-12.3) fL Immature Gran % (Auto) (0.0-0.4) % Neut % (Auto) (45-73) % Lymph % (Auto) (20-40) % Fergus % (Auto) (2-11) % Eos % (Auto) (0-4) % Baso % (Auto) (0-2) % Lymph # (Auto) (1.2-4.9) X10*3/uL Fergus # (Auto) (0.1-1.2) X10*3/uL Eos # (Auto) (0.0-0.4) X10*3/uL Baso # (Auto) (0.0-0.2) X10*3/uL Abs Immat Gran (auto) (0.00-0.03) X10*3/uL Absolute Neuts (auto) (2.0-8.3) x10*3/uL Absolute Nucleated RBC (0.0-0.012) X10*3/uL Nucleated RBC % (auto) (0.0-0.2) /100WBC VBG pH (7.32-7.43) VBG pCO2 mmHg VBG pO2 mmHg VBG HCO3 (22-26) mmol/L VBG O2 Saturation % VBG Base Excess mmol/L Sodium (135-145) mmol/L Potassium (3.3-5.1) mmol/L Chloride (96-108) mmol/L Carbon Dioxide (22-29) mmol/L Anion Gap (12-20) BUN (9-16) mg/dL Creatinine (0.5-1.4) mg/dL Estim Creat Clear Calc Estimated GFR Random Glucose (60-115) mg/dL Calcium (8.4-10.2) mg/dL Total Bilirubin (0.0-1.0) mg/dL Direct Bilirubin (0.0-0.5) mg/dL AST (5-31) U/L ALT (0-31) U/L Alkaline Phosphatase (39-117) U/L Troponin I High Sens (<3.5-17.0) ng/L B-Natriuretic Peptide (<100) pg/mL Total Protein (6.5-8.0) g/dL Albumin (3.5-5.0) g/dL Lipase (8-78) U/L Stool Occult Blood NEGATIVE (NEGATIVE) Influenza Type A (PCR) (Negative) Influenza Type B (PCR) (Negative) RSV RNA Qual (PCR) (Negative) SARS-CoV-2 RNA (RT-PCR) (Negative) Independent Interpretation I performed an independent interpretation of an: EKG Interpretation: My interpretation patient's EKG showed a sinus rhythm heart rate is 60 TR is normal QRS is normal QTC slightly prolonged at 500. There is T-wave inversion over the lateral leads EKG is not changed from previous. Radiology Impression Discussion of test interpretation with radiology: I have reviewed the radiologist's reading. Radiologist Impression: Question mild CHF Independent Historian Daughter External Record Review External record reviewed: Inpatient record Social Determinants Lives in a longterm Discharge Plan Discharge Clinical Impression: Abdominal pain, Congestive heart failure Patient Disposition: Home, Self-Care Instructions: Heart Failure (ED), Abdominal Pain (ED) Prescriptions: No Action carvedilol 6.25 mg tablet 6.25 mg PO BID Qty: 60 5RF Rx Instructions: must administer with a meal/food - Take one tablet twice daily atorvastatin 80 mg tablet 80 mg PO BEDTIME trazodone 50 mg tablet 50 mg PO BEDTIME clopidogrel 75 mg tablet 75 mg PO DAILY aspirin 81 mg tablet,delayed release (DR/EC) 81 mg PO BEDTIME magnesium oxide 400 mg (241.3 mg magnesium) tablet 400 mg PO BID sertraline 50 mg tablet 50 mg PO DAILY calcium carbonate-vitamin D3 600 mg(1,500mg) -400 unit tablet 1 tab PO BID insulin glargine [Lantus Solostar U-100 Insulin] 100 unit/mL (3 mL) insulin pen 18 unit subcut DAILY oxycodone 5 mg tablet 5 mg PO Q6H PRN (Reason: pain) Qty: 20 0RF Rx Instructions: Partial Fill upon patient request. amlodipine 10 mg Tablet 10 mg PO DAILY 30 Days Qty: 30 0RF Protocol: Hold for SBP< HOLD for SBP < : 90 famotidine 40 mg tablet 40 mg PO BID 30 Days Qty: 60 0RF sodium bicarbonate 650 mg Tablet 650 mg PO BID 30 Days Qty: 60 0RF ipratropium-albuterol 0.5 mg-3 mg(2.5 mg base)/3 mL Solution For Nebulization 3 ml INHALATION Q4H PRN (Reason: Wheezing) insulin lispro [Humalog U-100 Insulin] 100 unit/mL solution See Protocol subcut QIDACHS Protocol: Insulin Correction Scale Less than or equal to 110 ---- Give (units): 0 111 to 150 Give (units): 0 151 to 200 Give (units): 2 201 to 250 Give (units): 4 251 to 300 Give (units): 6 301 to 350 Give (units): 8 Greater than 350 Give (units): 10 Call MD if Blood Glucose > : 350 Rx Instructions: sliding scale furosemide [Lasix] 40 mg tablet 40 mg PO BIDWM Rx Instructions: Please call and schedule cardiology appt. naloxone 0.4 mg/mL Solution 0.4 mg SUBCUT Q3M PRN (Reason: Opioid Overdose) Rx Instructions: NTExceed 10 mg total dose/episode acetaminophen 500 mg Tablet 1,000 mg PO Q6H PRN (Reason: Fever Or Pain) Rx Instructions: do not exceed 3 grams / 24 hours magnesium hydroxide [Milk of Magnesia] 400 mg/5 mL Suspension 30 ml PO DAILY PRN (Reason: Constipation) Rx Instructions: do not administer with dialysis/ renal failure bisacodyl 10 mg Suppository 10 mg MN DAILY PRN (Reason: Constipation) Rx Instructions: use if milk of magnesia ineffective Fleet Enema 19-7 gram/118 mL Enema 118 ml MN DAILY PRN (Reason: Constipation) Rx Instructions: use if Bisacodyl is ineffective bethanechol chloride 25 mg Tablet 25 mg PO BID Qty: 60 0RF tamsulosin 0.4 mg Capsule 0.4 mg PO BEDTIME Qty: 30 0RF Lokelma 10 gram Powder In Packet 10 g PO DAILY Qty: 30 0RF Referrals: Robin Gallo MD [Primary Care Provider] -
--- OUTSIDE RECORDS SUMMARY | 2022-12-18 18:18 | XMS_ITS ---
:1955 Author Care Team Providers Name Role Phone DENYS SANDERS MD Primary Care Provider [phone] LUAN MAHAJAN MD OTHER [phone] LUKAS GRIGGS MD OTHER [phone] MYESHA FREY MD OTHER [phone] [facility] - [facility]TH FLOOR OTHER [phone] Allergies Code Code System Name Reaction Severity Status Onset [id number] RxNorm Latex Rash ? Active ? Medications [...] ? Functional Fecal Incontinence Active 09/22/2022 ? Urinary Tract Infectious Disease Active 12/06/2022 ? Procedures None recorded. Results Lab Results None recorded. Past Encounters Encounter Date Diagnosis Provider 12/16/2022 EZEQUIEL Kennedy: [address], [place] [address], Ph. 12/15/2022 Acute Hypokalemia EZEQUIEL Kennedy: [address], [place] [address], Ph. 12/14/2022 Type 2 Diabetes Mellitus with Jocelin Chowdhury MD: [address] Peripheral Angiopathy; Chronic Kid[address] , [place] [address], Disease Stage 4; Urinary Tract Ph. Infectious Disease; Peripheral Vascular Disease; Chronic Systolic Heart Failure; History of Cerebrovascular Accident; Essential Hypertension; Gastroesophageal Reflux Disease without Esophagitis; Mixed Anxiety and Depressive Disorder; Chronic Pain; Retention of Urine 12/06/2022 Acute Nontraumatic Kidney Injury; Maureen Chowdary NP: [address], Urinary Tract Infectious Disease; [place] [address], Ph. Chronic Hyperkalemia 11/30/2022 EZEQUIEL Kennedy: [address], [place] [address], Ph. 11/28/2022 Chronic Hyperkalemia; Acute Dinorah bledsoe PA-C: [address] N[address] [place] [address], Ph. 11/09/2022 Bacterial Vaginosis EZEQUIEL Kennedy: [address], [place] [address], Ph. [phone] 11/04/2022 Chronic Hyperkalemia; Elevated Liver Arlyni landon Jackman JAYMIE Velasquez: [address] [place] [address], Ph. 11/01/2022 Chronic Hyperkalemia; Chronic Kidney Arlyni landon Gasper Velasquez PA-C: 282 Disease Stage 5; Elevated Liver Enzymes [address], [place], [place] Level; Secondary Hypomagnesemia; Nausea [phone], Ph. and Vomiting; Type II Diabetes Mellitus Uncontrolled 10/31/2022 Epigastric Pain; Nausea and Vomiting; An millicent Velasquez PA-C: [address] Chronic Hyperkalemia; Chronic Kidney [address], [place], [place] Disease Stage 5; Retention of Urine; [phone], Ph. Type II Diabetes Mellitus Uncontrolled 10/28/2022 Nausea and Vomiting EZEQUIEL Kennedy: [address], [place] [address], Ph. 10/21/2022 Chronic Kidney Disease Stage 5; Chronic Dinorah Velasquez PA-C: [address] [place] [facility] [place] [address], Ph. 10/19/2022 Chronic Kidney Disease Stage 5; Dinorah Velasquez PA-C: 282 Retention of Urine; Esophageal [address], [place], [place] Dysphagia [address], Ph. 10/11/2022 Amputated Finger EZEQUIEL Kennedy: [address], [place] [address], Ph. 10/10/2022 Pain in Finger of Right Hand Dinorah landin PA-C: [address], [place] [address], Ph. 09/28/2022 Acute non-ST Segment Elevation Jocelin Chowdhury MD: [address] Myocardial Infarction; Chronic Kidney , [place] [address], Disease Stage 5; History of Ph. [phone] Cerebrovascular Accident; Type 2 Diabetes Mellitus with Peripheral Angiopathy; Mixed Anxiety and Depressive Disorder; Essential Hypertension; Asthenia 09/22/2022 Acute non-ST Segment Elevation Dinorah Velasquez PA-C: 282 Myocardial Infarction; Osteomyelitis of [place] , [place], [place] Finger of Left Hand; Anemia in Chronic 0 [phone], Ph. Kidney Disease; Chronic Kidney Disease Stage 5; [...] vaccine, vector-nr, rS-Ad26, PF , 0.5 mL ([employer]) 12/16/2020 COVID-19, mRNA, LNP-S, bivalent booster, PF, 30 mcg/0.3 mL dose (BlaBlaCar) 08/12/2022 COVID-19, mRNA, LNP-S, PF, 50 mcg/0.5 mL dose (Moderna) 05/26/2022 influenza, injectable, quadrivalent, pre servative free 08/12/2022 pneumococcal polysaccharide PPV23 07/14/2016 Notes: Pt needs PCV20 and then pneumoc occal vaccines will be complete per CDC guidelines as of this date. Plan of Care Reminders Provider Appointments None recorded. ? ? Lab None recorded. ? ? Referral None recorded. ? ? Procedures None recorded. ? ? Surgeries None recorded. ? ? Imaging None recorded. ? ? Vitals 12/14/2022 07:18AM Routine Rounding Visit Height Blood Pressure 4 ft 9.8 in 122/56 mm[Hg] 12/06/2022 02:15PM Acute Rounding Visit Height Blood Pressure 4 ft 9.8 in 126/70 mm[Hg] 11/28/2022 12:39PM Acute Rounding Visit Height Blood Pressure 4 ft 9.8 in 121/74 mm[Hg] 11/09/2022 12:01PM Acute Rounding Visit Height Blood Pressure 4 ft 9.8 in 123/70 mm[Hg] 11/04/2022 08:32PM Acute Rounding Visit Height Blood Pressure 4 ft 9.8 in 120/64 mm[Hg] 11/01/2022 02:52PM Acute Rounding Visit Height Blood Pressure 4 ft 9.8 in 127/66 mm[Hg] 10/31/2022 12:53PM Acute Rounding Visit Height Blood Pressure 4 ft 9.8 in 132/72 mm[Hg] 10/28/2022 01:43PM Acute Rounding Visit Height Blood Pressure 4 ft 9.8 in 130/68 mm[Hg] 10/21/2022 02:45PM Acute Rounding Visit Height Blood Pressure 4 ft 9.8 in 110/62 mm[Hg] 10/19/2022 03:19PM Readmission Height Weight BMI Blood Pressure 4 ft 9.8 in 161.8 lbs 34.1 kg/m2 135/61 mm[Hg] 10/11/2022 08:24PM Acute Rounding Visit Height Blood Pressure 4 ft 9.8 in 93/61 mm[Hg] 10/10/2022 04:05PM Acute Rounding Visit Height Blood Pressure 4 ft 9.8 in 138/58 mm[Hg] 09/28/2022 05:23AM Admitting H&P Height Blood Pressure 4 ft 9.8 in 133/66 mm[Hg] 09/22/2022 01:28PM Initial Intake Note Height Weight BMI Blood Pressure 4 ft 9.8 in 171.6 lbs 36.1 kg/m2 128/67 mm[Hg]
--- OUTSIDE RECORDS SUMMARY | 2022-12-18 18:18 | XMS_ITS | Encounter Summary ---
:1955 Author Care Team Providers Name Role Phone Alexys Avila MD Primary Care Provider [phone] Mikey Pang MD OTHER [phone] Toya Panchal MD OTHER [phone] Andera Vides MD OTHER [phone] Berta Lynch - 4th Floor OTHER [phone] Reason for Visit Acute Rounding Visit abd pain, nausea Assessment and Plan 1. Epigastric pain given hx duodenitis/gastritic, will d/c Pepcid and start Protonix 40 mg po daily -not using Prilosec since also on Plavix -does not require renal dosing Can increase to bid if needed Doubt ventral hernia related d/c Ca + D Reviewed with daughter who is in agreeme nt with plan Follow clinically 2. Nausea and vomiting No vomiting today Has prn Zofran available Could be due to hyperkalemia (see below) Does have dx diabetic gastroparesis -daughter unaware of any prior meds for this Hx esophageal dilation - daughter thinks this was an isolated intervention 15 minutes after meeting with gladis ackerman, pt vomited all over the floor. Had just taken her Lokelma -no hematemesis -Zofran 4 mg po x 1 STAT -STAT CBC with diff, CMP, Lipase, Mg 3. Chronic hyperkalemia secondary to CKD V on Lokelma 10 g po daily -reportedly inconsistent compliance -may need to increase to 15 g daily off kayexalate due to diarrhea -follow divalents 4. Chronic kidney disease stage 5 Has previously stated that she does not wish to have dialysis Need to medically optimize 5. Retention of urine Recent U/A neg Not constipated Still requiring intermittent straight ca th Increase Flomax from 0.4 to 0.8 mg po qh s Follow clinically 6. Type II diabetes mellitus uncontroll ed Sugars erratic, often higher as the day progresses Will hold off on adjusting any meds unti l acute GI issues resolved Discussion Note: None recorded.Patient educational handouts: No [...] Pressure 4 ft 9.8 in 132/72 mm[Hg] Results Lab Results None recorded. Allergies Code Code System Name Reaction Severity Onset [id number] RxNorm Latex Rash ? ? Problems Name [...] Disease Active 12/06/2022 ? Procedures None recorded. Vaccine List Vaccine Type COVID-19 vaccine, vector-nr, rS-Ad26, PF , 0.5 mL ([employer]) 12/16/2020 COVID-19, mRNA, LNP-S, bivalent booster, PF, 30 mcg/0.3 mL dose (Sabrix) 08/12/2022 COVID-19, mRNA, LNP-S, PF, 50 mcg/0.5 mL dose ([employer]) 05/26/2022 influenza, injectable, quadrivalent, pre servative free 08/12/2022 pneumococcal polysaccharide PPV23 07/14/2016 Notes: Pt needs PCV20 and then pneumoc occal vaccines will be complete per CDC guidelines as of this date. Social History Tobacco Smoking Status Former Smoker Has tobacco cessation counseling N Notes: N/A been provided? What is your code status? 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 What was the date of your most 09/22/2022 recent tobacco screening? Do you have an advance directive? Y Notes : full code; ok for dialysis; no artific ial nutrition; ok for artificial hy dration Do you use any illicit or N recreational drugs? What is your level of alcohol None consumption? Legal Guardian? N Do you have an out of hospital DNR? N Do you or have you ever used any N other forms of tobacco or nicotine? Family History Relation Problem Onset Age of [...] Unknown. Past Encounters Encounter Date Diagnosis Provider 10/31/2022 Epigastric Pain; Nausea and Vomiting; An millicent Velasquez PA-C: [address] Chronic Hyperkalemia; Chronic Kidney [address], [place] [address], Ph. Disease Stage 5; Retention of Urine; Type II Diabetes Mellitus Uncontrolled 10/28/2022 Nausea and Vomiting EZEQUIEL Kennedy: [address], [place] [phone], Ph. 10/21/2022 Chronic Kidney Disease Stage 5; Dinorah Velasquez PA-C: [address] Chronic Hyperkalemia [place], [place] [phone], Ph. 10/19/2022 Chronic Kidney Disease Stage 5; Dinorah Velasquez PA-C: [address] Retention of Urine; Esophageal [address], [place] [address], Ph. Dysphagia 10/11/2022 Amputated Finger EZEQUIEL Kennedy: [address], [place] [phone], Ph. 10/10/2022 Pain in Finger of Right Hand Dinorah landin PA-C: [address], [place] [phone], Ph. History of Present Illness Note: Pt seen for acute rounding visit today for abd pain and nausea. Pt seen 3 days ago for the above at which time STAT labs were ordered for further eval and prn Zofran was added. Diet adjusted to clear liquids x 24 h with plan to advance as tolerated back to usual diet. Continues to have abd pain and some nausea but no vomiting. No f/c/s. Does not feel like she is regurgitating food. No melena/hematochezia/change in stool color. No itching. No recent abd trauma although does get SQ injections. PMHx relevant for: NSTEMI 09/2022; CKD V with chronic metabolic acidosis and hyperkalemia; DM2 withnephropathy, neuropathy, gastroparesis, non-proliferative retinopathy, and PVD; Gastritis/Duodenitis; Hx esophageal dilation; Hypomagnesemia; GERD; Hx cholecystectomy; Ventral hernia; Urinary retention Meds reviewed and include: ASA 81 mg po daily Lipitor 80 mg po qhs Plavix 75 mg po q am Lantus 18 ux SQ q am Lokelma 10 g po daily (nurse reports pt sometimes refuses this but EMAR reflects compliance) Flomax 0.4 mg po qhs Bethanechol 25 mg po bid Ca + D bid Pepcid 40 mg po bid Mag oxide 400 mg po bid NaHCO3 650 mg po bid [facility] Humalog Zofran 4 mg po q 6 h prn N/V (has not used so far per EMAR)Review of Systems: ROS as noted in the HPI Review of Systems None recorded. Physical Exam ? Notes: Sitting up in bed in NAD Sk in p/w/d without jaundice/pallor HEENT sclerae anicteric Neck supple Lungs CTA without wheezes/rales/rhonchi Heart RRR without M Abd (see color pic in [facility] EHR for details) with faint ecchymosis mid- anterior abd with some striae; equivocal epigastric tenderness; small ventral hernia - non-reducible but non-tender; no distention; soft; normoactive BS Recent diagnostics: 3: Bladder scan 616 ml - cath 375 ml 10/28/22: CBC: 10.7/9.5/30. 3/227; ANC 7.44 lytes, BUN/Cr, glu: 137/5.8/107/25, 49/3.44, 292 Ca 8.4 10/21/22: CBC: 9.9/9.4/31. 1/218; ANC 6.21 lytes, BUN/Cr, glu: 139/5.2/105/22, 55/3.59, 160 Ca 9.3
--- OUTSIDE RECORDS SUMMARY | 2022-12-18 18:18 | XMS_ITS | Encounter Summary ---
:1955 Author Care Team Providers Name Role Phone Alexys Avila MD Primary Care Provider [phone] Mikey Pang MD OTHER [phone] Toya Panchal MD OTHER [phone] Andrea Vides MD OTHER [phone] Berta [place] - 4th Floor OTHER [phone] Reason for Visit Acute Rounding Visit BV Assessment and Plan 1. Bacterial vaginosis metrogel 0.75% vag qhs x 5 days f/u prn Discussion Note: None recorded.Patient educational handouts: No [...] Pressure 4 ft 9.8 in 123/70 mm[Hg] Results Lab Results None recorded. Allergies Code Code System Name Reaction Severity Onset [id number] RxNorm Latex Rash ? ? Problems Name [...] vaccine, vector-nr, rS-Ad26, PF , 0.5 mL ([employer]is[employer]ia) 12/16/2020 COVID-19, mRNA, LNP-S, bivalent booster, PF, 30 mcg/0.3 mL dose ([employer]) 08/12/2022 COVID-19, mRNA, LNP-S, PF, 50 mcg/0.5 mL dose (Moderna) 05/26/2022 influenza, injectable, quadrivalent, pre servative free 08/12/2022 pneumococcal polysaccharide PPV23 07/14/2016 Notes: Pt needs PCV20 and then pneumoc occal vaccines will be complete per CDC guidelines as of this date. Social History Tobacco Smoking Status Former Smoker What is your code status? 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 What is your level of alcohol None consumption? Legal Guardian? N Do you have an out of hospital DNR? N Do you or have you ever used any N other forms of tobacco or nicotine? Has tobacco cessation counseling N Notes: N/A been provided? What was the date of your most [...] Unknown. Past Encounters Encounter Date Diagnosis Provider 11/09/2022 Bacterial Vaginosis EZEQUIEL Kennedy: [address] [place] [phone], Ph. 11/04/2022 Chronic Hyperkalemia; Elevated Liver Sol Velasquez PA-C: [address] [place] [place] [phone], Ph. 11/01/2022 Chronic Hyperkalemia; Chronic Kidney Sol Velasquez PA-C: [address] Disease Stage 5; [place] [address], Ph. Enzymes Level; Secondary Hypomagnesemia; Nausea and Vomiting; Type II Diabetes Mellitus Uncontrolled 10/31/2022 Epigastric Pain; Nausea and Vomiting; An millicent Velasquez PA-C: [address] Chronic Hyperkalemia; [place] [address], Ph. Disease Stage 5; Retention of Urine; Type II Diabetes Mellitus Uncontrolled 10/28/2022 Nausea and Vomiting EZEQUIEL Kennedy: [address] [place] [phone], Ph. 10/21/2022 Chronic Kidney Disease Stage 5; Dinorah Velasquez PA-C: [address] [place] [phone], Ph. 10/19/2022 Chronic Kidney Disease Stage 5; Dinorah Velasquez PA-C: [address] Retention of Urine; Esophageal [address], [place] [address], Ph. Dysphagia 10/11/2022 Amputated Finger EZEQUIEL Kennedy: [address], [place] [phone], Ph. 10/10/2022 Pain in Finger of Right Hand Dinorah landin PA-C: [address], [place] [phone], Ph. History of Present Illness Note: Pt seen for acute rounding visit today for BV. Asked to see pt for thin white fishy-smelling vaginal discharge. No other complaints. PMHx reviewed Meds reviewedReview of Systems: ROS as noted in the HPI Review of Systems None recorded. Physical Exam ? Notes: In chair in NAD Abd soft, N T, ND with normoactive BS exam deferred by pt but findings reviewed with Kelsey Roth
--- OUTSIDE RECORDS SUMMARY | 2022-12-18 18:18 | XMS_ITS | Encounter Summary ---
:1955 Author Care Team Providers Name Role Phone Alexys Avila MD Primary Care Provider [phone] Mikey Pang MD OTHER [phone] Toya Panchal MD OTHER [phone] Andrea Vides MD OTHER [phone] Berta [place] - 4th Floor OTHER [phone] Reason for Visit Acute Rounding Visit hyperkalemia, transaminitis Assessment and Plan 1. Chronic hyperkalemia secondary to CKD V improved on increased Lokelma follow divalents 2. Elevated liver enzymes level asymptomatic today AST normalized ALT up from prior -follow LFTs -consider viral Hep testing Clarify status of RUQ u/s ordered previo usly Discussion Note: None recorded.Patient educational handouts: No [...] Pressure 4 ft 9.8 in 120/64 mm[Hg] Results Lab Results None recorded. Allergies Code Code System Name Reaction Severity Onset [id number] RxNorm Latex Rash ? ? Problems Name [...] vaccine, vector-nr, rS-Ad26, PF , 0.5 mL ([employer]) 12/16/2020 COVID-19, mRNA, LNP-S, bivalent booster, PF, 30 mcg/0.3 mL dose ([employer]) 08/12/2022 COVID-19, mRNA, LNP-S, PF, 50 mcg/0.5 [...] medical power of N Notes: need HCP civil attorney? What is your level of alcohol None [...] Unknown. Past Encounters Encounter Date Diagnosis Provider 11/04/2022 Chronic Hyperkalemia; Elevated Liver Sol Velasquez PA-C: [address] [place] [phone], Ph. 11/01/2022 Chronic Hyperkalemia; Chronic Kidney Sol Velasquez PA-C: [address] Disease Stage 5; [place] [address], Ph. Enzymes Level; Secondary Hypomagnesemia; Nausea and Vomiting; Type II Diabetes Mellitus Uncontrolled 10/31/2022 Epigastric Pain; Nausea and Vomiting; An millicent Velasquez PA-C: [address] Chronic Hyperkalemia; [place] [address], Ph. Disease Stage 5; Retention of Urine; Type II Diabetes Mellitus Uncontrolled 10/28/2022 Nausea and Vomiting EZEQUIEL Kennedy: [address] [place] [phone], Ph. 10/21/2022 Chronic Kidney Disease Stage 5; Dinorah Velasquez PA-C: [address], [place] [phone], Ph. 10/19/2022 Chronic Kidney Disease Stage 5; Dinorah Velasquez PA-C: [address] Retention of Urine; Esophageal [address], [place] [address], Ph. Dysphagia 10/11/2022 Amputated Finger EZEQUIEL Kennedy: [address], [place] [phone], Ph. 10/10/2022 Pain in Finger of Right Hand Dinorah landin PA-C: [address], [place] [phone], Ph. History of Present Illness Note: Pt seen for acute rounding visit today for hyperkalemia and transaminitis. Pt being followed for the above. See prior notes for details. No vomiting today. Denies abd pain. Appetite ok. PMHx reviewed Meds reviewedReview of Systems: ROS as noted in the HPI Review of Systems None recorded. Physical Exam ? Notes: In bed in NAD; appears comf ortable Skin p/w/d without jaundice/pallor HEENT sclerae anicteric; pink and moist mucous membranes Neck supple Lungs CTA without wheezes/rales/rhonchi Heart RRR without M Abd soft, NT, ND with normoactive BS Recent diagnostics: 3: lytes, BUN/Cr, glu: 141/5.3/106/27, 47/3.84, 154 Ca 8.4 TP/Alb 7.2/3 t. bili 0.3, AST/ALT 24/81, alk phos 392 10/31/22: CBC: 9/9.4/30.7/ 213; ANC 5.89 lytes, BUN/Cr, glu: 134/6.2/103/25, 47/3.67, 341 Ca 8.7, Mg 2.3 TP/Alb 7.3/3.2 t. bili 0.2, AST/ALT 60/66, alk phos 268 (AST/ALT up from 07/08 at [facility]) Lipase 97 Bladder scan 616 ml - cath 375 ml 10/28/22: CBC: 10.7/9.5/30 .3/227; ANC 7.44 lytes, BUN/Cr, glu: 137/5.8/107/25, 49/3.44, 292 Ca 8.4 10/21/22: CBC: 9.9/9.4/31. 1/218; ANC 6.21 lytes, BUN/Cr, glu: 139/5.2/105/, 55/3.59, 160 Ca 9.3 09/14-09/22/22 @ [facility]: CBC: 15.7/7.8/24.1/?; Speedy Hgb 6.9 lytes, BUN/Cr glu: 141/4.2//, 51/4.01, 133 Ca 7.9 Random Vanc 18.5 [...] U/A: positive Stool guaiac neg EGD: gastritis/duodenitis Flu neg RSV neg SARS-CoV-2 neg Stool c-diff neg Stool WBCs neg; stool for extensive microbes negative L 2nd finger culture NG Ferritin 300
--- OUTSIDE RECORDS SUMMARY | 2022-12-18 18:18 | XMS_ITS | Encounter Summary ---
:1955 Author Care Team Providers Name Role Phone Alexys Avila MD Primary Care Provider [phone] Mikey Pang MD OTHER [phone] Toya Panchal MD OTHER [phone] Andrea Vides MD OTHER [phone] Berta [place] - 4th Floor OTHER [phone] Reason for Visit Acute Rounding Visit Assessment and Plan 1. Acute nontraumatic kidney injury GIL on CKD V On Lasix 40 mg po bid - 3 doses held wit h improvement in labs. UA C&S checked to rule out UTI as a caus e of worsening renal function, appears positive, will be treating with augmentin x 7 days - corrected dose due to RF PVRs WNR - monitoring Repeat labs monday 2. Urinary tract infectious disease >100K Klebsiella Pneumoniae, ESBL; and 10-49K E. Coli Both sensitive to Augmentin - current do se 875 bid - will renal dose and reduce to 500 mg bid x 7 days and add probiotic. Monitor VS, s/s infection, repeat BMP mo 3. Chronic hyperkalemia secondary to CKD V therapeutic on Lokelma follow divalents Discussion Note: None recorded.Patient educational handouts: No [...] Pressure 4 ft 9.8 in 126/70 mm[Hg] Results Lab Results None recorded. Allergies Code Code System Name Reaction Severity Onset [id number] RxNorm Latex Rash ? ? Problems Name [...] vaccine, vector-nr, rS-Ad26, PF , 0.5 mL ([employer]) 12/16/2020 COVID-19, mRNA, LNP-S, bivalent booster, PF, 30 mcg/0.3 mL dose ([employer]) 08/12/2022 COVID-19, mRNA, LNP-S, PF, 50 mcg/0.5 [...] medical power of N Notes: need HCP privacy attorney? What is your level of alcohol [...] Unknown. Past Encounters Encounter Date Diagnosis Provider 12/06/2022 Acute Nontraumatic Kidney Injury; Maureen Chowdary COAL CARRIER: [address] , Urinary Tract Infectious Disease; [place] [address], Ph. Chronic Hyperkalemia 11/30/2022 EZEQUIEL Kennedy: [address] [place] [phone], Ph. 11/28/2022 Chronic Hyperkalemia; Acute Dinorah bledsoe PA-C: [address] [place]ra[place] [address], Ph. 11/09/2022 Bacterial Vaginosis EZEQUIEL Kennedy C: [address] [place] [phone], Ph. History of Present Illness Note: Debbie is seen today for an acute visit. She has been seen recently due to a concern of worsening renal function; lasix held x 3 doses (on Lasix 40 mg po bid). She has a hx. of urinary retention and UTI, so UA C&S obtained to check for UTI as cause of RF.PVRs being monitored as well, all WNR. UA C&S obtained 12/01 - positive for UTI Labs 12/05 show improvement in renal function, Bun 56, Creat. 3.37. Upon exam, Debbie is in bed, alert, pleasant, cooperative. Feels bastante , mostly rubbing her belly as the bastante part. She says she is moving her bowels and is eating well. Denies abd. pain,N/V. Case discussed with nsg., reporting Debbie has started augmentin for UTI, had her first dose today, juliano. well so far. She has no concerns or issues at this time. 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 Notes: All others reviewed and neg ative unless otherwise stated in the HPI. Physical Exam ? General Adult Exam Reported By: Patient Constitutional: General Appearance: healthy- appearing, well-nourished. Level of Distress: NAD. Ambulation: ; sitting in chair at time of visit Psychiatric: Mental Status: active and al ert, normal mood, normal affect Head: Head: normocephalic, atrauma tic Eyes: Lids and Conjunctivae: non-i njected. EOM: EOMI ENMT: Hearing: no hearing loss. Or opharynx: moist mucous membranes Neck: Neck: supple Lungs: Auscultation: good air movem ent, no wheezing, no rales/crackles, no rhonchi Cardiovascular: Heart Auscultation: RRR Abdomen: Bowel Sounds: soft, no guard ing, non-distended, no tenderness Musculoskeletal:: Joints, Bones, and Muscles ( normal) normal movement of all extremities; left hand hargrove ged, LBKA Neurologic: Cranial Nerves: grossly inta ct Skin: Inspection and palpation: no rash Notes: 11/28/22: lytes, BUN/Cr, gl u: 139/4/103/24, 78/4.25, 213 , Ca 7.7 12/01/22: UA sm.leuks, 27 wbc, heavy bacteria. C&S >100K Klebsiella Pneumoniae, ESBL 1.7, and 10 -49K E. Coli 1.8. 12/05/22: Na 138, K 4.1, Bun 56, Cr. 3.37, glu 9 3. Creat. Cl. 14.
--- OUTSIDE RECORDS SUMMARY | 2022-12-18 18:18 | XMS_ITS | Encounter Summary ---
:1955 Author Care Team Providers Name Role Phone Alexys Avila MD Primary Care Provider [phone] Mikey Pang MD OTHER [phone] Toya Panchal MD OTHER [phone] Andrea Vides MD OTHER [phone] Berta Lynch - 4th Floor OTHER [phone] Reason for Visit Acute Rounding Visit f/u hyperkalemia Assessment and Plan 1. Chronic hyperkalemia secondary to CKD V Given extra Lokelma 10 g last night and daily dose increased to 15 g (max dose) BMP pend tomorrow -may need to add small dose of kayexalat e twice weekly Follow labs 2. Chronic kidney disease stage 5 Has previously stated that she does not wish to have dialysis Increased Lokelma due to hyperkalemia (s ee above) CO2 on BMP ok on NaHCO3 Cr overall stable 3. Elevated liver enzymes level New since hospitalization Has associated abd pain, N/V Needs high-dose statin due to recent acu te NSTEMI Has not been utilizing APAP -will d/c duplicate prn APAP order RUQ u/s to eval pain, r/o obstruction Follow clinically 4. Secondary hypomagnesemia Therapeutic level Trial decrease Mag oxide from 400 mg po bid to once daily Repeat level next week 5. Nausea and vomiting Mild transaminitis Has prn Zofran that, per EMAR, has not b een utilized Treating hyperK Checking RUQ u/s PPI started today Follow clinically 6. Type II diabetes mellitus uncontroll ed Sugars erratic Potential [id number] metabolic aci dosis may be masked by Rx NaHCO3 Increase Lantus from 18 ux to 20 ux Given multiple finger amputations, will see if can get FreeStyle Melina Continuoue Glucose Monitoring System Not on PINO/ARB for renal protection due to hyperkalemia Monitor sugars and adjust meds prn May need basal-bolus regimen, especially if staying long-term Discussion Note: None recorded.Patient educational handouts: No [...] Pressure 4 ft 9.8 in 127/66 mm[Hg] Results Lab Results None recorded. Allergies Code Code System Name Reaction Severity Onset [id number] RxNorm Latex Rash ? ? Problems Name [...] vaccine, vector-nr, rS-Ad26, PF , 0.5 mL ([employer]) 12/16/2020 COVID-19, mRNA, LNP-S, bivalent booster, PF, 30 mcg/0.3 mL dose ([employer]) 08/12/2022 COVID-19, mRNA, LNP-S, PF, 50 mcg/0.5 mL dose ([employer]) 05/26/2022 influenza, injectable, quadrivalent, pre servative free 08/12/2022 pneumococcal polysaccharide PPV23 07/14/2016 Notes: Pt needs PCV20 and then pneumoc occal vaccines will be complete per CDC guidelines as of this date. Social History Tobacco Smoking Status Former Smoker What is your code status? Full Code Do you have a medical power of N Notes: need HCP patent prosecution attorney? What is your level of alcohol None consumption? Do you have an out of hospital DNR? N Legal Guardian? N Do you or have you ever [...] Unknown. Past Encounters Encounter Date Diagnosis Provider 11/01/2022 Chronic Hyperkalemia; Chronic Kidney Sol Velasquez PA-C: [address] Disease Stage 5; [facility] [place] [address], Ph. Enzymes Level; Secondary Hypomagnesemia; Nausea and Vomiting; Type II Diabetes Mellitus Uncontrolled 10/31/2022 Epigastric Pain; Nausea and Vomiting; An millicent Velasquez PA-C: [address] Chronic Hyperkalemia; Chronic Kidney , [place] [address], Ph. Disease Stage 5; Retention of Urine; [phone] Type II Diabetes Mellitus Uncontrolled 10/28/2022 Nausea and Vomiting EZEQUIEL Kennedy: [address] [place] [phone], Ph. 10/21/2022 Chronic Kidney Disease Stage 5; Dinorah Velasquez PA-C: [address] Chronic Hyper[place]emia [place] [phone], Ph. 10/19/2022 Chronic Kidney Disease Stage 5; Dinorah Velasquez PA-C: [address] Retention of Urine; [place] [address], Ph. Dysphagia 10/11/2022 Amputated Finger EZEQUIEL Kennedy: [address] [place] [phone], Ph. 10/10/2022 Pain in Finger of Right Hand Dinorah landin PA-C: [address] [place] [phone], Ph. History of Present Illness Note: Pt seen for acute rounding visit today for hyperkalemia. Pt with chronic hyperkalemia secondary to CKD V for which she is on Lokelma 10 g po daily. Was previously on kayexalate, which was d/c'd due to diarrhea. Being followed for N/V and abd pain. See priornotes for details. Had STAT labs drawn yesterday - K 6.2. Was given extra dose Lokelma 10 g and thendaily dose increased to 15 g starting today with plan to repeat divalents Monday. Pt feeling better today. Some nausea but no vomiting. Abd pain unchanged PMHx reviewed Meds reviewedReview of Systems: ROS as noted in the HPI Review of Systems None recorded. Physical Exam ? Notes: In bed resting comfortably Skin p/w/d without jaundice/pallor Sclerae anicteric; pink and moist mucous membranes Neck supple Lungs diminished, clear, poor inspiratory effort Heart RRR without M Abd soft with mild epigastr ic tenderness, ND with normoactive BS Ext without edema Recent diagnostics: 3: CBC: 9/9.4/30.7/213; ANC 5.89 lytes, BUN?Cr, glu: 134/6.2/103/25, 47/3.67, 341 Ca 8.7, Mg 2.3 TP/Alb 7.3/3.2 t. bili 0.2, AST/ALT 60/66, alk phos 268 (AST/ALT up from 07/08 at [facility] [place]) Lipase 97 10/31/22: Bladder scan 616 ml - cath 375 ml 10/28/22: CBC: 10.7/9.5/30.3/227; ANC 7.44 lytes, BUN/Cr, glu: 137/5.8/107/25, 49/3.44, 292 Ca 8.4 10/21/22: CBC: 9.9/9.4/31.1/218; ANC 6.21 lytes, BUN/Cr, glu: 139/5.2/105/22, 55/3.59, 160 Ca 9.3 09/14-09/22/22 @ [facility] [place]: CBC: 15.7/7.8/24.1/?; Speedy Hgb [...]
--- OUTSIDE RECORDS SUMMARY | 2022-12-18 18:18 | XMS_ITS | Encounter Summary ---
:1955 Author Care Team Providers Name Role Phone Alexys Avila MD Primary Care Provider [phone] Mikey Pang MD OTHER [phone] Toya Panchal MD OTHER [phone] Andrea Vides MD OTHER [phone] Berta Lynch - 4th Floor OTHER [phone] Reason for Visit Acute Rounding Visit hyperkalemia Assessment and Plan 1. Chronic hyperkalemia secondary to CKD V therapeutic on Lokelma follow divalents 2. Acute nontraumatic kidney injury GIL on CKD V On Lasix 40 mg po bid -will hold next 3 doses Has urinary retention and hx UTI -check U/A with reflex to culture r/o UT I as cause of GIL -may straight cath if needed Repeat labs Monday -will get CMP due to hx transaminitis an d also to get Alb to correct hypoCal Discussion Note: None recorded.Patient educational handouts: No [...] Pressure 4 ft 9.8 in 121/74 mm[Hg] Results Lab Results None recorded. Allergies Code Code System Name Reaction Severity Onset [id number] RxNorm Latex Rash ? ? 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 What is your level of alcohol None [...] Unknown. Past Encounters Encounter Date Diagnosis Provider 11/28/2022 Chronic Hyperkalemia; Acute Dinorah bledsoe PA-C: [address] [place] [address], Ph. 11/09/2022 Bacterial Vaginosis EZEQUIEL Kennedy: [address] [place] [phone], Ph. 11/04/2022 Chronic Hyperkalemia; Elevated Liver Arlyni landon Velasquez PA-C: [address] [place] [address], Ph. 11/01/2022 Chronic Hyperkalemia; Chronic Kidney Arlyni landon Velasquez PA-C: [address] Disease Stage 5; [place] [address], Ph. Enzymes Level; Secondary Hypomagnesemia; Nausea and Vomiting; Type II Diabetes Mellitus Uncontrolled 10/31/2022 Epigastric Pain; Nausea and Vomiting; An millicent Velasquez PA-C: [address] Chronic Hyperkalemia; [place] [address], Ph. Disease Stage 5; Retention of Urine; [phone] Type II Diabetes Mellitus Uncontrolled 10/28/2022 Nausea and Vomiting EZEQUIEL Kennedy: [address] [place] [place] [phone], Ph. History of Present Illness Note: Pt seen for acute rounding visit today for hyperkalemia. Pt with chronic HyperK secondary to CKD V. On Lokelma 15 g po daily. Labs being monitored weekly per daughter's request. Pt has no complaints. PMHx reviewed Meds reviewedReview of Systems: ROS as noted in the HPI Review of Systems None recorded. Physical Exam ? Notes: In bed in NAD Skin sallow, warm, dry Abd neg Recent diagnostics: 3: lytes, BUN/Cr, glu: 139/4/103/24, 78/4.25, 213 Ca 7.7 11/04/22: lytes, BUN/Cr, g del: 141/5.3/106/27, 47/3.84, 154 Ca 8.4 TP/Alb 7.2/3 t. bili 0.3, AST/ALT 24/81, alk phos 392 10/31/22: CBC: 9/9.4/30.7/ 213; ANC 5.89 lytes, BUN/Cr, glu: 134/6.2/103/25, 47/3.67, 341 Ca 8.7, Mg 2.3 TP/Alb 7.3/3.2 t. bili 0.2, AST/ALT 60/66, alk phos 268 (AST/ALT up from 07/08 at [facility] [place]) Lipase 97 Bladder scan 616 ml - cath 375 ml 10/28/22: CBC: 10.7/9.5/30 .3/227; ANC 7.44 lytes, BUN/Cr, glu: 137/5.8/107/25, 49/3.44, 292 Ca 8.4 10/21/22: CBC: 9.9/9.4/31. 1/218; ANC 6.21 lytes, BUN/Cr, glu: 139/5.2/105/, 55/3.59, 160 Ca 9.3 09/14-09/22/22 @ [facility] [place]: CBC: 15.7/7.8/24.1/?; Speedy Hgb 6.9 lytes, BUN/Cr glu: 141/4.2//, 51/4.01, 133 Ca 7.9
--- OUTSIDE RECORDS SUMMARY | 2022-12-18 18:18 | XMS_ITS | Encounter Summary ---
:1955 Author Care Team Providers Name Role Phone Alexys Avila MD Primary Care Provider [phone] Mikey Pang MD OTHER [phone] Toya Panchal MD OTHER [phone] Andrea Vides MD OTHER [phone] [place] - 4th Floor OTHER [phone] Reason for Visit Initial Intake Assessment and [...] above 15. Esophageal dysphagia On regular diet BUSINESS ANALYTICS ANALYST screen 16. Edema of lower extremity No evidence of volume overload on exam Is on Norvasc On Lasix -watch divalents, renal function, and Mg 17. Dyslipidemia statin 18. Degeneration of cervical interverte bral disc prn APAP PT/OT prn f/u prn 19. Cardiomyopathy medical optimized 20. 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 Nicole Rose at [facility]) 21. Irritable bowel syndrome Supportive care f/u prn 22. Insomnia co-occurrent and due to me dical condition Trazodone 23. Obstructive sleep apnea syndrome not on CPAP/BiPAP Follow clinically 24. Uterine prolapse Outpatient f/u with nurse examiner prn 25. Depressive disorder Denies SI/HI/AH/VH On [...] Code Code System Name Reaction Severity Onset [id number] RxNorm Latex Rash ? ? Problems Name [...] bivalent booster, PF, 30 mcg/0.3 mL dose ([email or web address]) 08/12/2022 COVID-19, mRNA, LNP-S, PF, 50 mcg/0.5 [...] medical power of N Notes: need HCP securities attorney? What is your level of alcohol [...] Velasquez PA-C: [address]; Osteomyelitis [place], [place] of Finger of Left Hand; [place] [address], Ph. Chronic Kidney Disease; Chronic Kidney [...] today for initial review. Seen with Sp-speaking LOGISTICS SPECIALIST. 67-y/o F admitted from [facility] where she was hospitalized 09/14- 09/22/22 for [...] significant comorbidities. Transfused 2 ux PRBCs for srzvi-ig-poclpks anemia. Stool guaiacs neg. Seen by GI [...] 1+ RLE edema Recent Labs/Diagnostics[place] [facility]: 15.7/7.8/24.1/?; Speedy Hgb 6.9 lytes, BUN/Cr [...]
--- OUTSIDE RECORDS SUMMARY | 2022-12-18 18:18 | XMS_ITS | Encounter Summary ---
:1955 Author Care Team Providers Name Role Phone Alexys Avila MD Primary Care Provider [phone] Mikey Pang MD OTHER [phone] Toya Panchal MD OTHER [phone] Andrea Vides MD OTHER [phone] Basco [place] - 4th Floor OTHER [phone] Reason for Visit Routine Rounding routine rounding visit Assessment and Plan 1. 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 Chronic kidney disease stage 4 Lokelma 5 gm: 3 packet daily sodium bicarb 650 mg bid fu nephrology will monitor 3. Urinary tract infectious disease Augmentin 500 mg bid through 12/14/22 will monitor 4. Peripheral vascular disease clopidogrel 75 mg daily atorvastatin 80 mg daily ASA 81 mg daily will monitor 5. Chronic systolic heart failure furosemide 40 mg bid will monitor 6. History of cerebrovascular accident ASA 81 mg daily atorvastatin 80 mg daily will monitor 7. Essential hypertension amlodipine 10 mg daily furosemide 40 mg bid' carvedilol 6.25 mg bid will monitor 8. Gastroesophageal reflux disease with out esophagitis pantoprazole 40 mg daily will monitor 9. Mixed anxiety and depressive disorde r trazodone 50 mg at hs will monitor 10. Chronic pain APAP 650 mg q4h prn oxycodone 5 mg q6h prn will monitor 11. Retention of urine tamsulosin 0.8 mg at hs bethanechol 25 mg bid will monitor urology prn Discussion Note: None recorded.Patient educational handouts: [...] Pressure 4 ft 9.8 in 122/56 mm[Hg] Results Lab Results None recorded. Allergies Code Code System Name Reaction Severity Onset [id number] RxNorm Latex Rash ? ? Problems Name [...] vaccine, vector-nr, rS-Ad26, PF , 0.5 mL ([employer]) 12/16/2020 COVID-19, mRNA, LNP-S, bivalent booster, PF, 30 mcg/0.3 mL dose ([employer]) 08/12/2022 COVID-19, mRNA, LNP-S, PF, 50 mcg/0.5 [...] medical power of N Notes: need HCP staff attorney? What is your level of alcohol [...] Unknown. Past Encounters Encounter Date Diagnosis Provider 12/14/2022 Type 2 Diabetes Mellitus with Jocelin Chowdhury MD: [address] Peripheral Angiopathy; [place] [address], Disease Stage 4; Urinary Tract Ph. Infectious Disease; Peripheral Vascular Disease; Chronic Systolic Heart Failure; History of Cerebrovascular Accident; Essential Hypertension; Gastroesophageal Reflux Disease without Esophagitis; Mixed Anxiety and Depressive Disorder; Chronic Pain; Retention of Urine 12/06/2022 Acute Nontraumatic Kidney Injury; Maureen Chowdary DRUM PLATER: [address], Urinary Tract Infectious Disease; [place] [address], Ph. Chronic Hyperkalemia 11/30/2022 Dinorah Gasper EZEQUIEL Velasquez C: [address], [place] [address], Ph. 11/28/2022 Chronic Hyperkalemia; Acute EZEQUIEL GutierrezC: [address], [place] [address], Ph. 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 Patient was initially treated with IV vancomycin and Zosyn; She was taken to OR on 09/29/22. I&D of bone and soft tissue of left index finger performed as well as middle phalanx level amputationof left index. Antibiotics were stopped when wound cultures and BC neg x 48 hours. Patient was also diagnosed with NSTEMI, given significant elevation in troponin and no EKG changes.She was treated with IV heparin. x 48 hours and deemed not a candidate for cardiac catheterization due to multiple comorbidities. ASA, statins beta blockers recommended. ECHO was done on 09/15/22 and showed LV systolic function moderately decreased with EF 32%; mild to mod , mild mitral annular calcification with mild MVR; mod to severe pulmonary hypertension. Patient received 2U PRBCs; EGD was done showing gastritis/duodenitis, guaiac negative stools. She also received IV iron and was given Procrit per nephrology and outpatient fu with nephrology recommended for continued Procrit. Patient was sent to hospital from facility on 10/14/22 with N, V for several days. WBC was 11.1, H/H11/35.6, potassium 6.7, cr 4.65 (increased from baseline 3.86). UA was positive for leukocyte estrace and WBC. Abd/pelvic CT showed mod to large stool content in colon and rectum with rectal wall thickening but no significant perirectal fat stranding. CXR showed diffuse interstitial patchy prominence increase compared to prior, suggestive of atypical/viral infection. Creatinine returned to baseline after fluid repletion. Hyperkalemia was treated with Lokelma 10g daily and potassium was 5.1 on day of discharged. ID did not feel patient had infection and antibioticswere discontinued. Patient returned to facility on 10/19/22. Patient has been seen recently due to a [...] in renal function, Bun 56, Creat. 3.37. Today patient is sitting in a chair in her room working on a word search puzzle before lunch in [facility]. She is a little upset because she had a stool accident getting on to toilet prior to our visit. MOLST: full code - signed 09/23/22Review of Systems: ROS as noted in the [...] Muscles ( normal) normal movement of all extremities Neurologic: Cranial Nerves: grossly inta ct Skin: Inspection and palpation: no rash Notes: 11/28/22: lytes, BUN/Cr, gl u: 139/4/103/24, 78/4.25, 213 , Ca 7.7 12/01/22: UA sm.leuks, 27 wbc, heavy bacteria. C&S >100K Klebsiella Pneumoniae, ESBL 1.7, and 10 -49K E. Coli 1.8. 12/05/22: Na 138, K 4.1, Bun 56, Cr. 3.37, glu 9 3. Creat. Cl. 14. 12/12/22: sodium 139, potassium 3.4, cr 3.92, BUN 50, glucose 103
--- OUTSIDE RECORDS SUMMARY | 2022-12-18 18:18 | XMS_ITS | Encounter Summary ---
:1955 Author Care Team Providers Name Role Phone Alexys Avila MD Primary Care Provider [phone] Mikey Pang MD OTHER [phone] Toya Panchal MD OTHER [phone] Andrea Vides MD OTHER [phone] Berta Brownke - 4th Floor OTHER [phone] Reason for Visit Acute Rounding Visit R 2nd finger pain Assessment and Plan 1. Pain in finger of right hand exam relatively benign has f/u tomorrow for L finger amp - enco uraged pt to mention this discomfort to surgeon at that appointment No changes needed at this time f/u prn Discussion Note: None recorded.Patient educational [...] Pressure 4 ft 9.8 in 138/58 mm[Hg] Results Lab Results None recorded. Allergies Code Code System Name Reaction Severity Onset [id number] RxNorm Latex Rash ? ? Problems Name [...] vaccine, vector-nr, rS-Ad26, PF , 0.5 mL ([employer]) 12/16/2020 COVID-19, mRNA, LNP-S, bivalent booster, PF, 30 mcg/0.3 mL dose ([employer]) 08/12/2022 COVID-19, mRNA, LNP-S, PF, 50 mcg/0.5 [...] medical power of N Notes: need HCP collections attorney? What is your level of alcohol [...] Unknown. Past Encounters Encounter Date Diagnosis Provider 10/10/2022 Pain in Finger of Right Hand Dinorah landin PA-C: [address], [place] [address], Ph. 09/28/2022 Acute non-ST Segment Elevation Jocelin Chowdhury MD: [address] Myocardial Infarction; Chronic Kidney [address] , [place] [address], Ph. Disease Stage 5; History of Cerebrovascular Accident; Type 2 Diabetes Mellitus with Peripheral Angiopathy; Mixed Anxiety and Depressive Disorder; Essential Hypertension; Asthenia 09/22/2022 Acute non-ST Segment Elevation Dinorah Velasquez PA-C: [address]; Osteomyelitis [address] of Finger of Left Hand; [place] [address], Ph. Chronic Kidney Disease; Chronic Kidney Disease [...] seen for acute rounding visit today for R 2nd finger pain. Asked to see pt for the above. Reports increased discomfort at tip of amputated site of R 2nd finger. No recent trauma of injury. Had remote amp of distal finger. Currently being followed for recent Lfinger amp but the R 2nd finger is bothering her. Unable to articulate the characteristics of the pain but does have surg f/u tomorrow for the more recent amp. PMHx reviewed Meds reviewed.Review of Systems: ROS as noted in the HPI Review of Systems None recorded. Physical Exam ? Notes: In bed in NAD R hand: well- healed amp at level of DIP; no erythema, ecchymosis, edema. No increa sed warmth. Mild tenderness between PIP and stump without crepitus. R
--- OUTSIDE RECORDS SUMMARY | 2022-12-18 18:18 | XMS_ITS | Encounter Summary ---
:1955 Author Care Team Providers Name Role Phone Alexys Avila MD Primary Care Provider [phone] Mikey Pang MD OTHER [phone] Toya Panchal MD OTHER [phone] Andrea Vides MD OTHER [phone] Berta [place] - 4th Floor OTHER [phone] Reason for Visit Acute Rounding Visit f/u L finger amp Assessment and Plan 1. Amputated finger improved f/u surg Discussion Note: None recorded.Patient educational handouts: No [...] Pressure 4 ft 9.8 in 93/61 mm[Hg] Results Lab Results None recorded. Allergies Code Code System Name Reaction Severity Onset [id number] RxNorm Latex Rash ? ? Problems Name [...] vaccine, vector-nr, rS-Ad26, PF , 0.5 mL ([employer]) 12/16/2020 COVID-19, mRNA, LNP-S, bivalent booster, PF, 30 mcg/0.3 mL dose ([employer]) 08/12/2022 COVID-19, mRNA, LNP-S, PF, 50 mcg/0.5 [...] medical power of N Notes: need HCP director non profit? What is your level of alcohol None [...] Unknown. Past Encounters Encounter Date Diagnosis Provider 10/11/2022 Amputated Finger EZEQUIEL Kennedy: [address] [place] [address], Ph. 10/10/2022 Pain in Finger of Right Hand Dinorah landin PA-C: [address], [place] [address], Ph. 09/28/2022 Acute non-ST Segment Elevation Jocelin Chowdhury MD: [address] Myocardial Infarction; Chronic Kidney , [place] [address], Ph. Disease Stage 5; History of Cerebrovascular Accident; Type 2 Diabetes Mellitus with Peripheral Angiopathy; Mixed Anxiety and Depressive Disorder; Essential Hypertension; Asthenia 09/22/2022 Acute non-ST Segment Elevation Dinorah Velasquez PA-C: [address]; Osteomyelitis [address], [place] of Finger of Left Hand; [place] [address], Ph. Chronic Kidney Disease; Chronic Kidney Disease [...] seen for acute rounding visit today for f/u L 2nd finger amp. Pt with the above. Had surg f/u this am and returned with recommendations to keep amp site open to air and f/u 1 week. Ok to wash but no submerging in water. Pt has no complaints today. She did not mention her R finger pain to the surgeon but it has since resolved. PMHx reviewed Meds reviewedReview of Systems: ROS as noted in the HPI Review of Systems None recorded. Physical Exam ? Notes: In chair in NAD; appears co mfortable R 2nd finger non-tender L 2nd finger amp site well-approximated witho ut drainage, bleeding, tenderness, or odor.
--- OUTSIDE RECORDS SUMMARY | 2022-12-18 18:18 | XMS_ITS | Encounter Summary ---
:1955 Author Care Team Providers Name Role Phone Alexys Avila MD Primary Care Provider [phone] Mikey Pang MD OTHER [phone] Toya Panchal MD OTHER [phone] Andrea Vides MD OTHER [phone] Berta Brownke - 4th Floor OTHER [phone] Reason for Visit Acute Rounding Visit N/V Assessment and Plan 1. Nausea and vomiting STAT labs add prn Zofran clear liquid diet x 24 h then advance as tolerated follow clinically Discussion Note: None recorded.Patient educational handouts: No [...] Pressure 4 ft 9.8 in 130/68 mm[Hg] Results Lab Results None recorded. Allergies Code Code System Name Reaction Severity Onset [id number] RxNorm Latex Rash ? ? Problems Name [...] vaccine, vector-nr, rS-Ad26, PF , 0.5 mL ([employer]) 12/16/2020 COVID-19, mRNA, LNP-S, bivalent booster, PF, 30 mcg/0.3 mL dose ([employer]) 08/12/2022 COVID-19, mRNA, LNP-S, PF, 50 mcg/0.5 [...] medical power of N Notes: need HCP court interpreter? What is your level of alcohol None [...] Unknown. Past Encounters Encounter Date Diagnosis Provider 10/28/2022 Nausea and Vomiting [facility]EL Kennedy[facility] [address] [facility] [place] [address] [place]. 10/21/2022 Chronic Kidney Disease Stage 5; Dinorah Velasquez PA-C: [address] Chronic [place] [address], Ph. 10/19/2022 Chronic Kidney Disease Stage 5; Dinorah Velasquez PA-C: [address] Retention of Urine; Esophageal [place] , [place], [place] Dysphagia [address], Ph. 10/11/2022 Amputated Finger EZEQUIEL Kennedy: [address], [place] [address], Ph. 10/10/2022 Pain in Finger of Right Hand Dinorah landin PA-C: [address], [place] [address], Ph. 09/28/2022 Acute non-ST Segment Elevation Jocelin Chowdhury MD: [address] [place] Myocardial Infarction; Chronic Kid[address] , [place] [address], Ph. Disease Stage 5; History of Cerebrovascular Accident; Type 2 Diabetes Mellitus with Peripheral Angiopathy; Mixed Anxiety and Depressive Disorder; Essential Hypertension; Asthenia History of Present Illness Note: Pt seen for acute rounding visit today for N&V. Called to see pt for the above. No specific abd pain. No hematemesis. Recent hospitalization for GIL and hyperkalemia. No f/c/s. No diarrhea. PMHx reviewed Meds reviewedReview of Systems: ROS as noted in the HPI Review of Systems None recorded. Physical Exam ? Notes: In bed in NAD; breathing no n-labored Skin p/w/d without jaundice/pallor HEENT pink and moist mucous membranes; sclerae anicteric Lungs CTA without wheezes/rales/rhonchi Heart RRR without M Abd soft with mild epigastr ic tenderness, ND with normoactive BS Ext without edema Recent diagnostics: reviewe d
--- OUTSIDE RECORDS SUMMARY | 2022-12-18 18:18 | XMS_ITS | Encounter Summary ---
:1955 Author Care Team Providers Name Role Phone Alexys Avila MD Primary Care Provider [phone] Mikey Pang MD OTHER [phone] Toya Panchal MD OTHER [phone] Andrea Vides MD OTHER [phone] [facility] - 4th Floor OTHER [phone] Reason for Visit Admitting H&P admission history [...] 40 mg bid will monitor 7. Asthenia PT/OT/MASTER OF CEREMONIES will monitor and support as needed Discussion [...] Code Code System Name Reaction Severity Onset [id number] RxNorm Latex Rash ? ? Problems Name [...] vaccine, vector-nr, rS-Ad26, PF , 0.5 mL ([employer]) 12/16/2020 COVID-19, mRNA, LNP-S, bivalent booster, PF, [...] medical power of N Notes: need HCP personnel administrator? What is your level of alcohol None [...] non-ST Segment Elevation Jocelin Chowdhury MD: [address] [place] Myocardial Infarction; Chronic Kidney [address] , [place] [address], Ph. Disease Stage 5; History of Cerebrovascular Accident; Type 2 Diabetes Mellitus with Peripheral Angiopathy; Mixed Anxiety and Depressive Disorder; Essential Hypertension; Asthenia 09/22/2022 Acute non-ST Segment Elevation Dinorah H Velasquez, PA-C: [address]; Osteomyelitis [place], [place] of Finger of Left Hand; [place] [address], Ph. Chronic Kidney Disease; Chronic Kidney [...] 67 year old woman was admitted to [facility] on 09/22/22 for rehab and continued care. 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
--- OUTSIDE RECORDS SUMMARY | 2022-12-18 18:18 | XMS_ITS | Encounter Summary ---
:1955 Author Care Team Providers Name Role Phone Alexys Avila MD Primary Care Provider [phone] Mikey Pang MD OTHER [phone] Toya Panchal MD OTHER [phone] Andrea Vides MD OTHER [phone] [facility] [facility] - [address] Floor OTHER [phone] Reason for Visit Routine Rounding; Readmission Assessment and Plan 1. Chronic kidney disease stage 5 with chronic hyperK and metabolic acido sis -on Lokelma and NaHCO3 recent GIL s/p IVF follow divalents and renal function renal f/u prn 2. Retention of urine newly on Flomax and bethanechol -room to increase both if needed manage constipation monitor PVRs and straight cath prn consider outpatient f/u urology 3. Esophageal dysphagia seen by [facility] during antecedent hospitali zation -ok to continue reg texture and thin liq uids f/u prn Discussion Note weight stable Pt needs PCV20 and then pneumococcal vac cines will be complete per CDC guidelines as of this date. Total mce-dngf-se-face time spent review ing available records on 10/18/22 was 40 minutes Patient educational handouts: No information available. Plan [...] in 161.8 lbs 34.1 kg/m2 135/61 mm[Hg] Results Lab Results None recorded. Allergies Code Code System Name Reaction Severity Onset [id number] RxNorm Latex Rash ? ? Problems Name [...] vaccine, vector-nr, rS-Ad26, PF , 0.5 mL ([employer]) 12/16/2020 COVID-19, mRNA, LNP-S, bivalent booster, PF, 30 mcg/0.3 mL dose ([employer]) 08/12/2022 COVID-19, mRNA, LNP-S, PF, 50 mcg/0.5 [...] medical power of N Notes: need HCP divorce attorney? What is your level of alcohol [...] Unknown. Past Encounters Encounter Date Diagnosis Provider 10/19/2022 Chronic Kidney Disease Stage 5; Dinorah Velasquez PA-C: 282 Retention of Urine; Esophageal [address] , [place] Dysphagia [address], [phone] 10/11/2022 Amputated Finger EZEQUIEL Kennedy: [address] [place] [address], Ph. 10/10/2022 Pain in Finger of Right Hand Dinorah landin PA-C: [address] [place] [address], Ph. [phone] 09/28/2022 Acute non-ST Segment Elevation Jocelin Chowdhury MD: [address] Myocardial Infarction; [place] [address], Ph. Disease Stage 5; History of [phone] Cerebrovascular Accident; Type 2 Diabetes Mellitus with Peripheral Angiopathy; Mixed Anxiety and Depressive Disorder; Essential Hypertension; Asthenia 09/22/2022 Acute non-ST Segment Elevation Dinorah Velasquez PA-C: 282 Myocardial Infarction; Osteomyelitis [address], [place], [place] of Finger of Left Hand; [place] [address], Ph. Chronic Kidney Disease; Chronic Kidney Disease [...] Present Illness Note: Pt seen today for combined readmission and routine rounding visits. 67-y/o F hospitalized 10/14-10/19/22 at [facility] for CKD V with GIL, hyperkalemia, N&V, and urinary retention. Daughter had been visiting with her at SNF and was concerned about pt's K level because she had been vomiting for several days, which had not been reported to staff. She arranged for pt to betransferred to the ED for further eval where she was dx with the aforementioned. While in the ED, pt's daughter brought her [employer] for dinner during which she was observed to cough after each bite.Seen by uro. who added bethanechol and Flomax with plan to check PVRs and straight cath prn. GIL resolved with IVF. Lokelma started for chronic hyperK. N/V resolved. Seen by [facility] - ok for regular texture diet with thin liquids. Returned to [place] for ongoing care. Parenterals received MATERIAL RECLAIMER: IVF 10/14/22 PMHx reviewed and now includes: Urinary retention Healthcare Maintenance: given comorbidities and life expectancy, routine screening would not be recommended PPI use: not on a PPI Meds reviewed and include: Lokelma 10 g po daily (new) Flomax 0.4 mg po daily (new) Bethanechol 25 mg po bid (new) Interval hx reviewed and includes the above hospitalization. Pt has no complaints. Says she feels better.Review of Systems: ROS as noted in the HPI Review of Systems None recorded. Physical Exam ? Notes: In bed resting comfortably Skin p/w/d HEENT pink and moist mucous membranes Neck supple Lungs diminished, clear, poor inspiratory effort Heart RRR without M Abd soft, NT, ND with normoactive BS Ext without edema; L BKA Recent diagnostics: reviewe d
--- OUTSIDE RECORDS SUMMARY | 2022-12-18 18:18 | XMS_ITS | Encounter Summary ---
:1955 Author Care Team Providers Name Role Phone Alexys Avila MD Primary Care Provider [phone] Mikey Pang MD OTHER [phone] Toya Panchal MD OTHER [phone] Andrea Vides MD OTHER [phone] [facility] [place] - [address] Floor OTHER [phone] Reason for Visit Acute Rounding Visit f/u CKD IV, hyperkalemia Assessment and Plan 1. Chronic kidney disease stage 5 Renal function stable Managing medically for now 2. Chronic hyperkalemia secondary to CKD V K acceptable -follow divalents Discussion Note: None recorded.Patient educational handouts: [...] Pressure 4 ft 9.8 in 110/62 mm[Hg] Results Lab Results None recorded. Allergies Code Code System Name Reaction Severity Onset [id number] RxNorm Latex Rash ? ? Problems Name [...] vaccine, vector-nr, rS-Ad26, PF , 0.5 mL ([employer]) 12/16/2020 COVID-19, mRNA, LNP-S, bivalent booster, PF, 30 mcg/0.3 mL dose ([employer]) 08/12/2022 COVID-19, mRNA, LNP-S, PF, 50 mcg/0.5 [...] medical power of N Notes: need HCP trial attorney? What was the date of your [...] Unknown. Past Encounters Encounter Date Diagnosis Provider 10/21/2022 Chronic Kidney Disease Stage 5; Dinorah Velasquez PA-C: [address], [place] [address], Ph. 10/19/2022 Chronic Kidney Disease Stage 5; Dinorah Velasquez PA-C: 282 Retention of Urine; Esophageal [address], [place], [place] Dysphagia [address], Ph. [phone] 10/11/2022 Amputated Finger EZEQUIEL Kennedy: [address], [place] [address], Ph. 10/10/2022 Pain in Finger of Right Hand Dinorah landin PA-C: [address], [place] [address], Ph. 09/28/2022 Acute non-ST Segment Elevation Jocelin Chowdhury MD: [address] Myocardial Infarction; Chronic Kidney [address] , [place] [address], Ph. Disease Stage 5; History of Cerebrovascular Accident; Type 2 Diabetes Mellitus with Peripheral Angiopathy; Mixed Anxiety and Depressive Disorder; Essential Hypertension; Asthenia 09/22/2022 Acute non-ST Segment Elevation Dinorah Velasquez PA-C: 282 Myocardial Infarction; [place] [address]inger [place]; [place] [address], Ph. Chronic Kidney Disease; Chronic Kidney [...] seen for acute rounding visit today for CKD V and hyperkalemia. Pt with recent hospitalization for CKD V with GIL, hyperkalemia, N&V, and urinary retention. Lokelma 10 g po daily and Flomax 0.4 mg daily added. Labs being monitored. Pt has no complaints today. PMHx reviewed. Meds reviewed.Review of Systems: ROS as noted in the HPI Review of Systems None recorded. Physical Exam ? Notes: In chair in NAD; appears co mfortable Recent diagnostics: 3: CBC: 9.9/9.4/31.1/218; ANC 6.21 lytes, BUN/Cr, glu: 139/5.2/105/22, 55/3.59, 160 Ca 9.3
[2022-12-18 18:49] LABS: MANUAL DIFF FLAG NO
[2022-12-18 18:50] LABS: Basophils Percent Auto 0.3 % (0-2); Eosinophils Absolute Auto 0.2 X10*3/uL (0.0-0.4); Eosinophils Percent Auto 2.4 % (0-4); Hematocrit 24.2 % (37.0-47.0); Hemoglobin 7.7 g/dl (12.0-16.0); Imm Gran Abs Auto 0.04 X10*3/uL (0.00-0.03); Imm Gran Pct Auto 0.4 % (0.0-0.4); Lymphocytes Absolute Auto 1.9 X10*3/uL (1.2-4.9); Lymphocytes Percent Auto 20.3 % (20-40); Mean Corpuscular HGB Conc 31.8 g/dl (31.0-35.0); Mean Corpuscular Hemoglobin 25.3 pg (27.0-33.0); Mean Corpuscular Volume 79.6 fL (80.0-98.0); Mean Platelet Volume 10.7 fL (9.4-12.3); Monocytes Absolute Auto 0.6 X10*3/uL (0.1-1.2); Monocytes Percent Auto 6.7 % (2-11); Neutrophils Absolute Auto 6.5 x10*3/uL (2.0-8.3); Neutrophils Percent Auto 69.9 % (45-73); Platelet Count 221 X10*3/uL (160-400); Red Blood Count 3.04 X10*6/uL (4.20-5.50); Red Cell Distribution Width 14.6 % (11.0-16.0); White Blood Count 9.3 X10*3/uL (4.8-10.8)
[2022-12-18 18:52] LABS: Venous Blood Gas Refer to POC result
[2022-12-18 18:53] LABS: VBG Base Excess -1.6 mmol/L; VBG HCO3 22 mmol/L (22-26); VBG pCO2 33 mmHg; VBG pH 7.42 (7.32-7.43); VBG pO2 44 mmHg
[2022-12-18 19:15] LABS: B Type Natriuretic Peptide 1345 pg/mL (<100); Troponin-I High Sensitivity 26.3 ng/L (<3.5-17.0)
[2022-12-18 19:18] LABS: Alanine Aminotransferase 7 U/L (0-31); Albumin Level 3.7 g/dL (3.5-5.0); Alkaline Phosphatase 143 U/L (39-117); Aspartate Amino Transferase 15 U/L (5-31); Bilirubin Direct < 0.2 mg/dL (0.0-0.5); Bilirubin Total 0.4 mg/dL (0.0-1.0); Blood Urea Nitrogen 54 mg/dL (9-16); Calcium 8.2 mg/dL (8.4-10.2); Carbon Dioxide 21 mmol/L (22-29); Chloride 97 mmol/L (96-108); Creatinine Clr Calc Pharmacy 8.8; Estimated Glomerular Filt Rate 9; Glucose Random 167 mg/dL (60-115); Lipase 18 U/L (8-78); Potassium 3.7 mmol/L (3.3-5.1); Sodium 133 mmol/L (135-145); Total Protein 7.7 g/dL (6.5-8.0)
[2022-12-18 19:19] LABS: Anion Gap 16 (12-20)
[2022-12-18 19:31] LABS: Influenza A PCR NEGATIVE (Negative); Influenza B PCR NEGATIVE (Negative); Resp Syncy Virus RNA Qual PCR NEGATIVE (Negative); SARS COV2 PCR INHOUSE NEGATIVE (Negative)
[2022-12-18] MEDS: Furosemide 40 MG/4 ML VIAL IVPUSH (20:22)
[2022-12-18 21:07] LABS: OBS Int Ctl Valid YES; OBS1 NEGATIVE (NEGATIVE)
[2022-12-18 23:26] VITALS: BP 136/42; PULSE 61; RESP 21; TEMP 36.8; O2SAT 94
== END 2022-12-19 00:45 | disposition home or self-care (01) ==
PROVIDERS: Emergency Provider Emergency Medicine Emergency Medical Services; PCP Family Medicine
DX: R10.9 Unspecified abdominal pain (principal); I50.9 Heart failure, unspecified; R33.9 Retention of urine, unspecified; R00.1 Bradycardia, unspecified; R06.02 Shortness of breath; R10.2 Pelvic and perineal pain; Z20.822 Contact with and (suspected) exposure to COVID-19; Z20.828 Contact with and (suspected) exposure to other viral communicable diseases; Z79.899 Other long term (current) drug therapy
CPT/HCPCS: 0241U; 36415; 51798; 71045; 74176; 80048; 80076; 82272; 82803; 83690; 83880; 84484; 85025; 93005; 96374; 99285; J1940

== ENCOUNTER 2022-12-27 18:22 | Inpatient (IN) | payer OTHER, SELFPAY ==
--- NOTE | ~2022-12-27 | IR_ITS ---
PROCEDURE: IR INSERTION OF TUNNEL CATHETER CLINICAL INFORMATION: Renal failure. COMPARISON: Temporary dialysis catheter placement 12/30/2022. TECHNIQUE: Procedure and risks and benefits including bleeding, infection and pneumothorax were discussed with the patient's son by telephone and informed consent was obtained. All elements of maximal sterile barrier technique followed including use of cap, mask, sterile gown, sterile gloves, a sterile full body drape and hand hygiene. Also followed skin preparation with 2% chlorhexidine for cutaneous antisepsis, and sterile ultrasound preparation with sterile gel and probe cover when applicable. The right neck and chest and existing dialysis catheter were prepped and draped in the usual sterile fashion. Both ports of the existing temporary dialysis catheter were aspirated. One port was clogged and no blood return could be obtained. Skin and soft tissues around the existing dialysis catheter in the right lower neck were anesthetized with 1% lidocaine plain. Skin and soft tissues of the right upper anterior chest were anesthetized with 1% lidocaine plain. A small incision in the chest was made. A subcutaneous tunnel from the chest to the neck incision was anesthetized with 1% lidocaine plain. Using a tunneler, a 14.5 [place]ankan 19 cm in length GlidePath Permacath was tunneled from the chest to the neck incision. A 0.035 guidewire was advanced through the existing dialysis catheter into the right atrium. Existing dialysis catheter was exchanged for a peel-away sheath. Through the peel-away sheath, Permacath was advanced centrally. Catheter tip is at the cavoatrial junction. The neck incision was closed using a 3-0 absorbable subcuticular suture. The chest incision was closed using a 3-0 absorbable mattress suture. Both ports were aspirated and had good blood return and flushed easily. Both ports were instilled with 1.6 mL heparin 1000 unit per mL solution. No conscious sedation medicine. Fluoroscopy time 0.8 minutes. DAP 174 cGy-cm2. 1 saved fluoroscopic image. FINDINGS: There is a right internal jugular permacath with tip projecting over the cavoatrial junction. IR/IR cvc insert central tunnel IMPRESSION: 14.5 [place] 19 cm in length GlidePath Permacath placement.
--- NOTE | ~2022-12-27 | XR_ITS ---
EXAMINATION: XR CHEST CLINICAL INFORMATION: Shortness of breath. COMPARISON: Chest x-ray 12/18/2022 TECHNIQUE: Frontal portable view of the chest was obtained. 7:47 PM FINDINGS: Heart size is enlarged. Central pulmonary vascular prominence seen on the prior chest x-ray of 12/18/2022 has improved. There is also improvement in the bilateral multifocal airspace opacities since prior study.. Etiology is likely therefore cardiogenic, resolving congestive heart failure. No significant pleural effusion. Multilevel degenerative spondylosis spine. XR/XR chest 1V IMPRESSION: Improving pulmonary vascular congestion and bilateral airspace opacities since prior chest x-ray 12/18/2022.
--- NOTE | ~2022-12-27 | XR_ITS ---
EXAMINATION: XR CHEST CLINICAL INFORMATION: Cough COMPARISON: Previous chest x-ray most recent 12/27/2022 TECHNIQUE: Frontal view of the chest was obtained. FINDINGS: The cardiac silhouette is enlarged. There is pulmonary venous redistribution. There is patchy bilateral airspace disease. This is greatest in the left lower lobe. This may be slightly improved compared to 12/27/2022 in the left lower lobe. There is chronic subsegmental atelectasis or scarring in the right mid lung that is unchanged. There may be small bilateral pleural effusions. There is no pneumothorax. There is a new right jugular line with tip projecting over the SVC. There are degenerative changes of the spine. XR/XR chest 1V IMPRESSION: Stable enlargement of the cardiac silhouette. Bilateral patchy airspace disease and small pleural effusions. Differential would include CHF and pneumonia. Clinical correlation recommended.
--- NOTE | ~2022-12-27 | IR_ITS ---
PROCEDURE: IR INSERTION OF CENTRAL VENOUS CATHETER CLINICAL INFORMATION: GIL. Temporary dialysis catheter for urgent dialysis. COMPARISON: None available. TECHNIQUE: Following explaining ultrasound and fluoroscopy-guided placement of right temporary dialysis catheter procedure, benefits and risks via nut roaster helper to the patient's daughter, who was her health proxy, a written consent was obtained from the daughter. Patient was placed on fluoroscopy table in angiography suite and preliminary ultrasound imaging was obtained through the right neck. An optimal site was selected and marked. The marked site was cleaned and draped in the usual sterile manner. 1% lidocaine was inserted at puncture site. A single wall needle was then advanced under sterile ultrasound guidance into the right jugular vein and the jugular vein was punctured. After observing venous return, a thin guidewire was advanced through the needle and needle withdrawn. A 5-Ivorian dilator was placed and the short guidewire was removed. A longer J-wire was advanced under fluoroscopy and placed in IVC. The tract was dilated with 5-, 7- and 12-Ivorian dilators. Subsequently a 12-Ivorian 13 cm long Mahurkar temporary dialysis catheter was advanced into the SVC and the guidewire removed. The catheter was anchored to the skin with two 3-0 nylon sutures. Sterile dressing applied postprocedure. Both ports of the catheter were flushed with saline followed by heparin instillation. Single image was obtained for documentation. Patient tolerated procedure extremely well. All elements of maximal sterile barrier technique followed including use of cap, mask, sterile gown, sterile gloves, a sterile full body drape and hand hygiene. Also followed skin preparation with 2% chlorhexidine for cutaneous antisepsis, and sterile ultrasound preparation with sterile gel and probe cover when applicable. FINDINGS: On preliminary ultrasound imaging, the right jugular vein is widely patent. The carotid artery is patent. There are small lymph nodes visualized in the right neck. A 12-Ivorian 13 cm long right temporary dialysis catheter was inserted under ultrasound and fluoroscopy with tip of the catheter in mid SVC. The catheter is ready for use. IR/IR cvc insert non tunnel IMPRESSION: Successful ultrasound-guided right neck temporary dialysis catheter insertion. FLUOROSCOPY TIME: 1.1 minutes. DOSE AREA PRODUCT: 274 cGy-cm2
--- NOTE | ~2022-12-27 | IR_ITS ---
PROCEDURE: IR INSERTION OF CENTRAL VENOUS CATHETER CLINICAL INFORMATION: GIL. Temporary dialysis catheter for urgent dialysis. COMPARISON: None available. TECHNIQUE: Following explaining ultrasound and fluoroscopy-guided placement of right temporary dialysis catheter procedure, benefits and risks via tax collector to the patient's daughter, who was her health proxy, a written consent was obtained from the daughter. Patient was placed on fluoroscopy table in angiography suite and preliminary ultrasound imaging was obtained through the right neck. An optimal site was selected and marked. The marked site was cleaned and draped in the usual sterile manner. 1% lidocaine was inserted at puncture site. A single wall needle was then advanced under sterile ultrasound guidance into the right jugular vein and the jugular vein was punctured. After observing venous return, a thin guidewire was advanced through the needle and needle withdrawn. A 5-Bermudian dilator was placed and the short guidewire was removed. A longer J-wire was advanced under fluoroscopy and placed in IVC. The tract was dilated with 5-, 7- and 12-Bermudian dilators. Subsequently a 12-Bermudian 13 cm long Mahurkar temporary dialysis catheter was advanced into the SVC and the guidewire removed. The catheter was anchored to the skin with two 3-0 nylon sutures. Sterile dressing applied postprocedure. Both ports of the catheter were flushed with saline followed by heparin instillation. Single image was obtained for documentation. Patient tolerated procedure extremely well. All elements of maximal sterile barrier technique followed including use of cap, mask, sterile gown, sterile gloves, a sterile full body drape and hand hygiene. Also followed skin preparation with 2% chlorhexidine for cutaneous antisepsis, and sterile ultrasound preparation with sterile gel and probe cover when applicable. FINDINGS: On preliminary ultrasound imaging, the right jugular vein is widely patent. The carotid artery is patent. There are small lymph nodes visualized in the right neck. A 12-Bermudian 13 cm long right temporary dialysis catheter was inserted under ultrasound and fluoroscopy with tip of the catheter in mid SVC. The catheter is ready for use. IR/IR us guide venous access IMPRESSION: Successful ultrasound-guided right neck temporary dialysis catheter insertion. FLUOROSCOPY TIME: 1.1 minutes. DOSE AREA PRODUCT: 274 cGy-cm2
--- NOTE | ~2022-12-27 | CT_ITS ---
EXAMINATION: CT CHEST WITHOUT CONTRAST CLINICAL INFORMATION: Reassess pneumonia COMPARISON: Previous chest CT most recent March 2022 and chest x-rays most recent from yesterday TECHNIQUE: Multidetector volumetric CT imaging of the chest was done. Axial MIP volume rendering provided. Sagittal and coronal reformatted images were obtained. This CT examination was performed using dose optimization techniques as appropriate, variously including the following: *Automated exposure control *Adjustment of mA and/or kV according to patient size (this includes techniques or standardized protocols for targeted exams where dose is matched to indication/reason for exam; i.e. extremities or head) *Use of iterative reconstruction technique DLP: 3-5 mGy-cm FINDINGS: LUNGS: There is scarring or chronic subsegmental atelectasis along the right minor fissure. This is similar to March 2022 exam. There is atelectasis/infiltrate in the posterior right lower lobe. This appears improved from March 2022 exam. There is atelectasis/infiltrate in the left upper lobe that is new and left lower lobe that appears improved from previous CT. In comparison with previous chest x-ray from 12/27/2022, infiltrates are probably slightly improved although comparison with different modalities is difficult. There is chronic volume loss to the left hemithorax with shift of the central mediastinal structures to the left that can be seen on previous CT scan but is increased. No endobronchial or endotracheal lesion. MEDIASTINUM: The heart is enlarged. No pericardial effusion. Coronary artery and aortic valve calcification. Shotty mediastinal lymphadenopathy. Right jugular catheter with tip projecting over the SVC. CORONARY ARTERY CALCIFICATION: Moderate PLEURA: Moderate right and small left pleural effusions AXILLA: Small bilateral axillary lymph nodes. Subcutaneous edema of the left breast and chest wall. UPPER ABDOMEN: The gallbladder is been removed. There is subcutaneous edema along the left chest wall and upper abdomen. OSSEOUS STRUCTURES: Unremarkable. CT/CT chest wo IV con IMPRESSION: Persistent bilateral infiltrates, greatest in the bilateral lower lobes. Moderate right and small left pleural effusions. Chronic volume loss to the left hemithorax and shift of the central mediastinal structures to the left. Fleischner guidelines were followed.
--- NOTE | 2022-12-27 18:40 | ECG_ITS ---
Test Reason : altered mental status Blood Pressure : / mmHG Vent. Rate : 056 BPM Atrial Rate : 056 BPM P-R Int : 180 ms QRS Dur : 120 ms QT Int : 490 ms P-R-T Axes : 083 103 -73 degrees QTc Int : 472 ms Sinus bradycardia Low voltage QRS Possible Anterolateral infarct (cited on or before 18-DEC-2022) Abnormal ECG When compared with ECG of 18-DEC-2022 19:12, Serial changes of Anterior infarct Present Referred By: Maureen Young Electronically Signed By:MYESHA FREY
[2022-12-27 18:45] VITALS: BP 107/54; BP 127/55; PULSE 55; PULSE 56; RESP 22; O2SAT 90; O2SAT 96; BMI 37.0
[2022-12-27 19:07] VITALS: TEMP 36.4
--- NOTE | 2022-12-27 19:07 | PC.NURSE ---
per EMS pt SaO2 90% room air - placed on 4L NC improved to 97%
[2022-12-27 19:20] LABS: Basophils Absolute Auto 0.1 X10*3/uL (0.0-0.2); Basophils Percent Auto 0.3 % (0-2); Eosinophils Percent Auto 0.2 % (0-4); Hematocrit 25.9 % (37.0-47.0); Hemoglobin 7.9 g/dl (12.0-16.0); Imm Gran Abs Auto 0.12 X10*3/uL (0.00-0.03); Imm Gran Pct Auto 0.6 % (0.0-0.4); Lymphocytes Absolute Auto 0.7 X10*3/uL (1.2-4.9); Lymphocytes Percent Auto 3.6 % (20-40); MANUAL DIFF FLAG SCAN; Mean Corpuscular HGB Conc 30.5 g/dl (31.0-35.0); Mean Corpuscular Hemoglobin 25.2 pg (27.0-33.0); Mean Corpuscular Volume 82.7 fL (80.0-98.0); Mean Platelet Volume 11.5 fL (9.4-12.3); Monocytes Absolute Auto 0.9 X10*3/uL (0.1-1.2); Monocytes Percent Auto 4.6 % (2-11); Neutrophils Absolute Auto 18.5 x10*3/uL (2.0-8.3); Neutrophils Percent Auto 90.7 % (45-73); Platelet Count 178 X10*3/uL (160-400); Red Blood Count 3.13 X10*6/uL (4.20-5.50); Red Cell Distribution Width 16.3 % (11.0-16.0); SCAN SMEAR FLAG 1; White Blood Count 20.4 X10*3/uL (4.8-10.8)
[2022-12-27 19:29] LABS: Lactic Acid 1.2 mmol/L (0.5-2.0)
[2022-12-27 19:38] LABS: B Type Natriuretic Peptide 1588 pg/mL (<100)
[2022-12-27 19:40] LABS: Troponin-I High Sensitivity 20.3 ng/L (<3.5-17.0)
[2022-12-27 19:42] LABS: Alanine Aminotransferase 12 U/L (0-31); Albumin Level 3.5 g/dL (3.5-5.0); Alkaline Phosphatase 184 U/L (39-117); Anion Gap 22 (12-20); Aspartate Amino Transferase 21 U/L (5-31); Bilirubin Total 0.5 mg/dL (0.0-1.0); Blood Urea Nitrogen 76 mg/dL (9-16); Calcium 8.1 mg/dL (8.4-10.2); Carbon Dioxide 19 mmol/L (22-29); Chloride 109 mmol/L (96-108); Creatinine Clr Calc Pharmacy 10.1; Estimated Glomerular Filt Rate 8; Glucose Random 75 mg/dL (60-115); Potassium 4.6 mmol/L (3.3-5.1); Sodium 145 mmol/L (135-145); Total Protein 6.9 g/dL (6.5-8.0)
[2022-12-27 19:46] LABS: SLIDE REVIEW VERIFIED
--- NOTE | 2022-12-27 19:52 | ED.AMS ---
HPI - Altered Mental Status General Chief Complaint: Altered Mental Status Stated Complaint: ams Time Seen by Provider: 12/27/22 18:39 Source: family and EMS Mode of arrival: EMS History of Present Illness HPI narrative: 67-year-old female who presents via EMS after they were called by the family members from the [facility]. They stated that patient was noted to be decreased responsiveness, altered mental status, with noted difficulty breathing. Patient is unable to significantly provide additional information at this time although on questioning appears to be agreeable with dialysis which EMS had stated that patient had declined previously. EMS states that on arrival patient was noted to be hypoxic and was placed on supplemental oxygen. Related Data Home Medications Medication Instructions Recorded Confirmed aspirin 81 mg tablet,delayed 81 mg PO BEDTIME 06/20/21 10/14/22 release atorvastatin 80 mg tablet 80 mg PO BEDTIME 06/20/21 10/14/22 calcium carbonate 600 mg-vitamin 1 tab PO BID 06/20/21 10/14/22 D3 10 mcg (400 unit) tablet clopidogrel 75 mg tablet 75 mg PO DAILY 06/20/21 10/14/22 magnesium oxide 400 mg (241.3 mg 400 mg PO BID 06/20/21 10/14/22 magnesium) tablet sertraline 50 mg tablet 50 mg PO DAILY 06/20/21 10/14/22 trazodone 50 mg tablet 50 mg PO BEDTIME 06/20/21 10/14/22 insulin glargine 100 unit/mL (3 18 unit subcut DAILY 03/25/22 10/14/22 mL) subcutaneous pen (Lantus Solostar U-100 Insulin) ipratropium 0.5 mg-albuterol 3 mg 3 ml inhalation Q4H PRN Wheezing 05/05/22 10/14/22 (2.5 mg base)/3 mL nebulization soln furosemide 40 mg tablet (Lasix) 40 mg PO BIDWM 10/14/22 10/14/22 insulin lispro 100 unit/mL See Protocol subcut QIDACHS 10/14/22 10/14/22 subcutaneous solution (Humalog U-100 Insulin) acetaminophen 500 mg tablet 1,000 mg PO Q6H PRN Fever Or Pain 10/15/22 10/15/22 bisacodyl 10 mg rectal suppository 10 mg CA DAILY PRN Constipation 10/15/22 10/15/22 magnesium hydroxide 400 mg/5 mL 30 ml PO DAILY PRN Constipation 10/15/22 10/15/22 oral suspension (Milk of Magnesia) naloxone 0.4 mg/mL injection 0.4 mg subcut Q3M PRN Opioid 10/15/22 10/15/22 solution Overdose sodium phosphates 19 gram-7 118 ml CA DAILY PRN Constipation 10/15/22 10/15/22 gram/118 mL enema (Fleet Enema) Previous Rx's Medication Instructions Recorded carvedilol 6.25 mg tablet 6.25 mg PO BID #60 tabs 02/21/22 amlodipine 10 mg tablet 10 mg PO DAILY 30 days #30 tabs 03/03/22 famotidine 40 mg tablet 40 mg PO BID 30 days #60 tabs 03/03/22 sodium bicarbonate 650 mg tablet 650 mg PO BID 30 days #60 tabs 03/03/22 oxycodone 5 mg tablet 5 mg PO Q6H PRN pain #20 tabs 09/21/22 bethanechol chloride 25 mg tablet 25 mg PO BID #60 tabs 10/19/22 sodium zirconium cyclosilicate 10 10 g PO DAILY #30 ea 10/19/22 gram oral powder packet (Lokelma) tamsulosin 0.4 mg capsule 0.4 mg PO BEDTIME #30 caps 10/19/22 Allergies Allergy/AdvReac Type Severity Reaction Status Date / Time latex [LATEX] Allergy Intermediate ITCHY Verified 12/18/22 17:49 Review of Systems Review of Systems: Yes Unobtainable due to mental condition PMFSH Past Medical History Source: nursing notes reviewed Medical History Abnormal abdominal CT scan Acute hyperkalemia Acute kidney injury superimposed on CKD Acute on chronic renal failure Acute UTI Acute worsening of stage 4 chronic kidney disease GIL (acute kidney injury) Anemia Anemia Aspiration into airway Blister of finger without infection Cardiomyopathy Cholecystectomy planned Chronic heart failure with preserved ejection fraction (HFpEF) Chronic kidney failure CKD (chronic kidney disease) CKD (chronic kidney disease) stage 3, GFR 30-59 ml/min CKD (chronic kidney disease) stage 4, GFR 15-29 ml/min CKD (chronic kidney disease) stage 5, GFR less than 15 ml/min CKD (chronic kidney disease) stage 5, GFR less than 15 ml/min CKD (chronic kidney disease), stage IV Congestive heart failure Constipation Diabetes Diabetes mellitus Elevated d-dimer Elevated troponin Essential hypertension Gastroparesis Generalized weakness GERD (gastroesophageal reflux disease) Hand pain Hernia HLD (hyperlipidemia) HTN (hypertension) Hyperkalemia Hypomagnesemia Irritable bowel syndrome with diarrhea Ischemic necrosis of finger Lightheadedness Low blood pressure Metabolic acidosis Nausea & vomiting Non-ST elevated myocardial infarction Nonischemic cardiomyopathy Normocytic anemia Other and unspecified hyperlipidemia Overflow diarrhea Pharyngoesophageal dysphagia Pneumonia Status post amputation of finger Type 2 diabetes mellitus with unspecified complications Urinary tract infection due to ESBL Klebsiella UTI (urinary tract infection) Surgical History H/O: hysterectomy History of esophagogastroduodenoscopy (EGD) Hx of colonoscopy Hx of eye surgery Family History Family History Father Lung cancer Mother Diabetes HTN (hypertension) Heart disease Sister Diabetes Heart disease Brother Heart disease Son Diabetes Daughter Diabetes Social History Social History Household Members: Caregiver Household Members Other:: SNF Housing: [facility] Do you presently have visiting nurse or other home services: No Unable to assess alcohol history related to: Unknown Alcohol intake: never Patient Tobacco Use Status: Never used Tobacco Second Hand Smoke Exposure: No Advance Directives: No Advance Directives Information Provided: No Advance Directives Date on File: 02/02/22 service: No Current occupational status: disabled Physical Exam ED Vital Signs: Vital Signs - 24 hr 12/27/22 18:45 12/27/22 19:07 12/27/22 20:15 Temperature 97.5 F Pulse Rate 56 56 Respiratory Rate 22 H 12 Blood Pressure 127/55 L 163/57 H Pulse Oximetry 96 96 Oxygen Delivery Method Nasal Cannula Room Air BMI result Body Mass Index 37.0 VITAL SIGNS: Reviewed. GENERAL: Well developed, well nourished, in moderate distress. HEAD: Normocephalic/atraumatic EYES: PERRLA, EOMI EARS: Ext canals without abnormality OROPHARYNX: no oral lesions noted, posterior pharynx clear NECK: Supple, no adenopathy LUNGS: Decreased breath sounds throughout, coarse rhonchi, tachypnea is present, increased work of breathing with wet cough. SpO2<96> on supplemental nasal cannula at 4 L CARDIOVASCULAR: Regular rate and rhythm without noted murmurs, no JVD 1+ pitting edema to rt ankle. ABDOMEN: Soft, non-tender, non-distended with bowel sounds. MUSCULOSKELETAL: No tenderness, deformities, or effusions noted on gross inspection. EXTREMITIES: No cyanosis, clubbing or edema; patient is missing tips fingers on bilateral hands this is a chronic condition, patient is also left AKA. SKIN: Inspection of the skin reveals no rashes NEUROLOGIC: Drowsy and oriented x 2. Strength and sensation to light touch were grossly intact x 4. Medications Administered Discontinued Medications Generic Name Dose Route Start Last Admin Trade Name Freq PRN Reason Stop Dose Admin Furosemide 60 mg 12/27/22 19:33 12/27/22 20:08 Furosemide 100 Mg/10 Ml Vial IVPUSH 12/27/22 19:34 60 mg ONCE ONE Administration Protocol Piperacillin Sod/Tazobactam 50 mls @ 100 mls/hr 12/27/22 19:30 12/27/22 20:08 Sod 3.375 gm/ Sodium Chloride IV 12/27/22 19:59 100 mls/hr ONCE ONE Administration Medical Decision Making Medical Decision Making [facility] Narrative: 1840: 67-year-old female comes in with acute respiratory failure and altered mental status with clinical evidence to suggest pulmonary edema. Labs, supplemental oxygen, UA, EKG and chest x-ray are pending. 1933: I suspect infection, lactic acid and blood cultures are pending, antibiotics ordered. Patient also on review of chemistries demonstrates significantly worsening renal function with obvious CHF. Patient does not currently meet criteria for sepsis fluids. 2004: My interpretation of the chest x-ray prior to radiology read is for right lower lobe pneumonia with worsening venous congestion and possible left pleural effusion. 2044: Patient receiving antibiotics as well as diuresis. Differential Diagnosis Please see the discussion above Consult Healthcare Provider 1999: I discussed case with inpatient hospitalist who accepts admission Lab Data Please see the discussion above 12/27/22 18:59 12/27/22 18:59 Labs: Lab Results 12/27/22 12/27/22 12/27/22 Range/Units 18:59 18:59 18:59 WBC 20.4 H (4.8-10.8) X10*3/uL RBC 3.13 L (4.20-5.50) X10*6/uL Hgb 7.9 L (12.0-16.0) g/dl Hct 25.9 L (37.0-47.0) % MCV 82.7 (80.0-98.0) fL MCH 25.2 L (27.0-33.0) pg MCHC 30.5 L (31.0-35.0) g/dl RDW 16.3 H (11.0-16.0) % Plt Count 178 (160-400) X10*3/uL MPV 11.5 (9.4-12.3) fL Immature Gran % (Auto) 0.6 H (0.0-0.4) % Neut % (Auto) 90.7 H (45-73) % Lymph % (Auto) 3.6 L (20-40) % Troup % (Auto) 4.6 (2-11) % Eos % (Auto) 0.2 (0-4) % Baso % (Auto) 0.3 (0-2) % Lymph # (Auto) 0.7 L (1.2-4.9) X10*3/uL Troup # (Auto) 0.9 (0.1-1.2) X10*3/uL Eos # (Auto) 0.0 (0.0-0.4) X10*3/uL Baso # (Auto) 0.1 (0.0-0.2) X10*3/uL Abs Immat Gran (auto) 0.12 H (0.00-0.03) X10*3/uL Absolute Neuts (auto) 18.5 H (2.0-8.3) x10*3/uL Absolute Nucleated RBC 0.000 (0.0-0.012) X10*3/uL Nucleated RBC % (auto) 0.0 (0.0-0.2) /100WBC Smear Tech's Comments VERIFIED Sodium 145 (135-145) mmol/L Potassium 4.6 D (3.3-5.1) mmol/L Chloride 109 H (96-108) mmol/L Carbon Dioxide 19 L (22-29) mmol/L Anion Gap 22 H (12-20) BUN 76 H (9-16) mg/dL Creatinine 5.11 H* (0.5-1.4) mg/dL Estim Creat Clear Calc 10.1 Estimated GFR 8 Random Glucose 75 (60-115) mg/dL Lactic Acid 1.2 (0.5-2.0) mmol/L Calcium 8.1 L (8.4-10.2) mg/dL Total Bilirubin 0.5 (0.0-1.0) mg/dL AST 21 (5-31) U/L ALT 12 (0-31) U/L Alkaline Phosphatase 184 H (39-117) U/L Troponin I High Sens (<3.5-17.0) ng/L B-Natriuretic Peptide (<100) pg/mL Total Protein 6.9 (6.5-8.0) g/dL Albumin 3.5 (3.5-5.0) g/dL 12/27/22 12/27/22 Range/Units 18:59 18:59 WBC (4.8-10.8) X10*3/uL RBC (4.20-5.50) X10*6/uL Hgb (12.0-16.0) g/dl Hct (37.0-47.0) % MCV (80.0-98.0) fL MCH (27.0-33.0) pg MCHC (31.0-35.0) g/dl RDW (11.0-16.0) % Plt Count (160-400) X10*3/uL MPV (9.4-12.3) fL Immature Gran % (Auto) (0.0-0.4) % Neut % (Auto) (45-73) % Lymph % (Auto) (20-40) % Troup % (Auto) (2-11) % Eos % (Auto) (0-4) % Baso % (Auto) (0-2) % Lymph # (Auto) (1.2-4.9) X10*3/uL Troup # (Auto) (0.1-1.2) X10*3/uL Eos # (Auto) (0.0-0.4) X10*3/uL Baso # (Auto) (0.0-0.2) X10*3/uL Abs Immat Gran (auto) (0.00-0.03) X10*3/uL Absolute Neuts (auto) (2.0-8.3) x10*3/uL Absolute Nucleated RBC (0.0-0.012) X10*3/uL Nucleated RBC % (auto) (0.0-0.2) /100WBC Smear Tech's Comments Sodium (135-145) mmol/L Potassium (3.3-5.1) mmol/L Chloride (96-108) mmol/L Carbon Dioxide (22-29) mmol/L Anion Gap (12-20) BUN (9-16) mg/dL Creatinine (0.5-1.4) mg/dL Estim Creat Clear Calc Estimated GFR Random Glucose (60-115) mg/dL Lactic Acid (0.5-2.0) mmol/L Calcium (8.4-10.2) mg/dL Total Bilirubin (0.0-1.0) mg/dL AST (5-31) U/L ALT (0-31) U/L Alkaline Phosphatase (39-117) U/L Troponin I High Sens 20.3 H (<3.5-17.0) ng/L B-Natriuretic Peptide 1588 H (<100) pg/mL Total Protein (6.5-8.0) g/dL Albumin (3.5-5.0) g/dL Independent Interpretation I performed an independent interpretation of an: EKG Interpretation: Sinus bradycardia, HR -56, no STEMI CA/QTC are within normal limits. External Record Review External record reviewed: Inpatient record, Outpatient record and Prior outpatient labs Chronic Conditions Patient?s care impacted by: Diabetes and Hypertension Discharge Plan Discharge Clinical Impression: Acute respiratory failure, CHF exacerbation, Acute on chronic renal failure, Pneumonia Patient Disposition: Admitted As Inpatient
[2022-12-27] MEDS: Piperacillin Sodium/Tazobactam 3.375 GM in 0.9 % Sodium Chloride 50 ML IV (20:08)
[2022-12-27] MEDS: Furosemide 100 MG/10 ML VIAL 60 MG IVPUSH (20:08)
[2022-12-27 20:15] VITALS: BP 163/57; PULSE 56; RESP 12; O2SAT 96
--- NOTE | 2022-12-27 20:21 | P.HPHOSP_ITS ---
History of Present Illness Date of Service: 12/27/22 Chief Complaint: Altered mentation This is a 67-year-old female with pertinent history of CKD stage 5, congestive heart failure with reduced ejection fraction, insulin-dependent type 2 diabetes mellitus, essential hypertension, mixed hyperlipidemia, chronic opioid use, mood disorder, urinary retention, gastroesophageal reflux disease who was sent to the emergency department for evaluation of dyspnea and altered mentation. Patient is a poor historian and history obtained from ER provider and chart review. Patient is unable to provide review of systems and does not know why she is here. Patient is drowsy and briefly awakens to verbal stimulus. She was found to be hypoxemic in the ER and placed on supplemental oxygen. As per family member, patient was sent because she was noted to have decreased mentation and she was with increased work of breathing. Review of Systems Review of Systems: Yes Unobtainable due to mental status [facility] Medical History Abnormal abdominal CT scan Acute hyperkalemia Acute kidney injury superimposed on CKD Acute on chronic renal failure Acute UTI Acute worsening of stage 4 chronic kidney disease GIL (acute kidney injury) Anemia Anemia Aspiration into airway Blister of finger without infection Cardiomyopathy Cholecystectomy planned Chronic heart failure with preserved ejection fraction (HFpEF) Chronic kidney failure CKD (chronic kidney disease) CKD (chronic kidney disease) stage 3, GFR 30-59 ml/min CKD (chronic kidney disease) stage 4, GFR 15-29 ml/min CKD (chronic kidney disease) stage 5, GFR less than 15 ml/min CKD (chronic kidney disease) stage 5, GFR less than 15 ml/min CKD (chronic kidney disease), stage IV Congestive heart failure Constipation Diabetes Diabetes mellitus Elevated d-dimer Elevated troponin Essential hypertension Gastroparesis Generalized weakness GERD (gastroesophageal reflux disease) Hand pain Hernia HLD (hyperlipidemia) HTN (hypertension) Hyperkalemia Hypomagnesemia Irritable bowel syndrome with diarrhea Ischemic necrosis of finger Lightheadedness Low blood pressure Metabolic acidosis Nausea & vomiting Non-ST elevated myocardial infarction Nonischemic cardiomyopathy Normocytic anemia Other and unspecified hyperlipidemia Overflow diarrhea Pharyngoesophageal dysphagia Pneumonia Status post amputation of finger Type 2 diabetes mellitus with unspecified complications Urinary tract infection due to ESBL Klebsiella UTI (urinary tract infection) Family History Father Lung cancer Mother Diabetes HTN (hypertension) Heart disease Sister Diabetes Heart disease Brother Heart disease Son Diabetes Daughter Diabetes Surgical History H/O: hysterectomy History of esophagogastroduodenoscopy (EGD) Hx of colonoscopy Hx of eye surgery Social History Household Members: Caregiver Household Members Other:: SNF Housing: Care Home Do you presently have visiting nurse or other home services: No Unable to assess alcohol history related to: Unknown Alcohol intake: never Patient Tobacco Use Status: Never used Tobacco Smoked in Last 30 Days: No Second Hand Smoke Exposure: No Use of substances other than those prescribed or required for medical reasons: No Advance Directives: No Advance Directives Information Provided: No Advance Directives Date on File: 02/02/22 service: No Current occupational status: disabled Meds Allergies Allergy/AdvReac Type Severity Reaction Status Date / Time latex [LATEX] Allergy Intermediate ITCHY Verified 12/18/22 17:49 Active Medications: Current Medications Acetaminophen (Acetaminophen 325 Mg Tablet) 650 mg PO Q6H PRN PRN Reason: Pain, Mild (Pain Scale 1-3) Acetaminophen (Acetaminophen Supp 650 Mg Supp.Rect) 650 mg MT Q6H PRN PRN Reason: Pain, Mild (Pain Scale 1-3) Enoxaparin Sodium (Enoxaparin Sodium 30 Mg/0.3 Ml Syringe) 30 mg SUBCUT Q24H [facility] Melatonin (Melatonin 3 Mg Tablet) 6 mg PO BEDTIME PRN PRN Reason: Insomnia Ondansetron HCl (Ondansetron Hcl 4 Mg/2 Ml Vial) 4 mg IVPUSH Q8H PRN PRN Reason: Nausea and Vomiting Pharmacy Consult (Consult Rx Perform Med Rec) 1 each MISCELLANE ONCE PRN PRN Reason: Consult order Sodium Chloride (0.9 % Sodium Chloride Flush 3 Ml Syringe) 3 ml IVFLUSH QSHIFT [facility] Home Medications Medication Instructions Recorded Confirmed Last Taken Type aspirin 81 mg tablet,delayed 81 mg PO BEDTIME 06/20/21 12/27/22 10/14/22 History release atorvastatin 80 mg tablet 80 mg PO BEDTIME 06/20/21 12/27/22 10/13/22 History clopidogrel 75 mg tablet 75 mg PO DAILY 06/20/21 12/27/22 10/13/22 History magnesium oxide 400 mg (241.3 mg 400 mg PO DAILY 06/20/21 12/27/22 10/14/22 History magnesium) tablet trazodone 50 mg tablet 50 mg PO BEDTIME 06/20/21 12/27/22 10/13/22 History insulin glargine 100 unit/mL (3 20 unit subcut DAILY 03/25/22 12/27/22 10/14/22 History mL) subcutaneous pen (Lantus Solostar U-100 Insulin) ipratropium 0.5 mg-albuterol 3 mg 3 ml inhalation Q4H PRN Wheezing 05/05/22 12/27/22 Unknown History (2.5 mg base)/3 mL nebulization soln furosemide 40 mg tablet (Lasix) 40 mg PO DAILY 10/14/22 12/27/22 10/14/22 History insulin lispro 100 unit/mL See Protocol subcut QIDACHS 10/14/22 12/27/22 10/14/22 History subcutaneous solution (Humalog U-100 Insulin) acetaminophen 500 mg tablet 1,000 mg PO Q6H PRN Fever Or Pain 10/15/22 12/27/22 Unknown History bisacodyl 10 mg rectal suppository 10 mg MT DAILY PRN Constipation 10/15/22 12/27/22 Unknown History magnesium hydroxide 400 mg/5 mL 30 ml PO DAILY PRN Constipation 10/15/22 12/27/22 Unknown History oral suspension (Milk of Magnesia) naloxone 0.4 mg/mL injection 0.4 mg subcut Q3M PRN Opioid 10/15/22 12/27/22 Unknown History solution Overdose sodium phosphates 19 gram-7 118 ml MT DAILY PRN Constipation 10/15/22 12/27/22 Unknown History gram/118 mL enema (Fleet Enema) melatonin 3 mg tablet 3 mg PO BEDTIME 12/27/22 12/27/22 Unknown History pantoprazole 40 mg tablet,delayed 40 mg PO DAILY 12/27/22 12/27/22 Unknown History release tamsulosin 0.4 mg capsule 0.8 mg PO BEDTIME 12/27/22 12/27/22 Unknown History Physical Exam Vital Signs and Narrative: Vital Signs: Last Vital Signs Temp 97.5 F 12/27/22 19:07 Pulse 56 12/27/22 20:15 Resp 12 12/27/22 20:15 BP 163/57 H 12/27/22 20:15 Pulse Ox 96 12/27/22 20:15 O2 Del Method Room Air 12/27/22 20:15 Oxygen Flow Rate 4 12/27/22 18:45 BMI result Body Mass Index 37.0 Middle-aged female lying in bed in mild distress on supplemental oxygen Neck supple, no JVD Regular rate and rhythm, S1-S2 heard Bilateral crackles without wheezing Abdomen soft nontender, no guarding, no rigidity Patient is drowsy and briefly awakens to verbal stimulus, non conversational Mild right lower extremity edema Results Labs 12/27/22 18:59 12/27/22 18:59 Labs: Laboratory Results - last 24 hr 12/27/22 12/27/22 12/27/22 18:59 18:59 18:59 MCV 82.7 MCH 25.2 L MCHC 30.5 L RDW 16.3 H Plt Count 178 MPV 11.5 Immature Gran % (Auto) 0.6 H Neut % (Auto) 90.7 H Lymph % (Auto) 3.6 L [place] % (Auto) 4.6 Eos % (Auto) 0.2 Baso % (Auto) 0.3 Lymph # (Auto) 0.7 L [place] # (Auto) 0.9 Eos # (Auto) 0.0 Baso # (Auto) 0.1 Abs Immat Gran (auto) 0.12 H Absolute Neuts (auto) 18.5 H Absolute Nucleated RBC 0.000 Nucleated RBC % (auto) 0.0 Smear Tech's Comments VERIFIED Anion Gap 22 H Estim Creat Clear Calc 10.1 Estimated GFR 8 Random Glucose 75 Lactic Acid 1.2 Calcium 8.1 L Total Bilirubin 0.5 AST 21 ALT 12 Alkaline Phosphatase 184 H Troponin I High Sens B-Natriuretic Peptide Total Protein 6.9 Albumin 3.5 12/27/22 12/27/22 18:59 18:59 MCV MCH MCHC RDW Plt Count MPV Immature Gran % (Auto) Neut % (Auto) Lymph % (Auto) [place] % (Auto) Eos % (Auto) Baso % (Auto) Lymph # (Auto) [place] # (Auto) Eos # (Auto) Baso # (Auto) Abs Immat Gran (auto) Absolute Neuts (auto) Absolute Nucleated RBC Nucleated RBC % (auto) Smear Tech's Comments Anion Gap Estim Creat Clear Calc Estimated GFR Random Glucose Lactic Acid Calcium Total Bilirubin AST ALT Alkaline Phosphatase Troponin I High Sens 20.3 H B-Natriuretic Peptide 1588 H Total Protein Albumin Assessment and Plan (1) Acute respiratory failure: Status: Acute Plan This is a 67-year-old female with pertinent history of CKD stage 5, congestive heart failure with reduced ejection fraction, insulin-dependent type 2 diabetes mellitus, essential hypertension, mixed hyperlipidemia, chronic opioid use, mood disorder, urinary retention, gastroesophageal reflux disease who was sent to the emergency department for evaluation of dyspnea and altered mentation. #. Acute hypoxemic respiratory and sepsis due to community-acquired pneumonia: Will admit patient with supplemental oxygen. Initiating empiric IV antibiotics. Blood culture and sputum culture pending. COVID/FLu pending #. acute metabolic encephalopathy in the setting of above #. GIL on CKD stage 5: Monitor creatinine and urine output. Nephrology consulted. Avoid nephrotoxins #. Congestive heart failure with reduced ejection fraction #. Essential hypertension -Conintue home diuretics and antihypertensives #. Elevated troponin, likely type 2 in the setting of increased demand #. Elevated BNP: renal disease is contributing #. History of CVA: on plavix #. Insulin-dependent type 2 diabetes mellitus: Reduce basal insulin. Initiating Accu-Cheks with sliding scale insulin every 6 hours #. Urinary tension: On bethanechol and tamsulosin #. Chronic normocytic anemia med rec pending DVT prophylaxis: Lovenox 30 mg daily Full code Npo until mentation improves. Consulted speech Admit as inpatient and will require two night minimum hospital stay for Time Spent With Patient Time: Total time managing care of this patient today ____ minutes. Quality Stroke Does the patient have a stroke diagnosis?: No VTE Prior VTE?: No VTE Risk Level:: Medical - moderate - high VTE Device Contraindication: Treatment Not Indicated VTE Drug Contraindication: N/A - Med Ordered
--- NOTE | 2022-12-27 20:50 | PC.NURSE ---
late entry- pt medicated according to nov. pt opens eye to name. HOB elevated. pt remains on 4 LPM NC. pt pending admission at this time awaiting results from chest xray
--- NOTE | 2022-12-27 20:56 | PHA.MEDREC ---
Pharmacy Consult ? Medication Reconciliation Pharmacy has completed the medication reconciliation.
[2022-12-27 21:31] LABS: INTERNATIONAL NORM RATIO 1.5 (0.9-1.1); Prothrombin Time 16.9 SEC (10.0-13.1)
[2022-12-27 21:40] LABS: Venous Blood Gas Refer to POC result
[2022-12-27 21:40] LABS: VBG Base Excess -4.4 mmol/L; VBG HCO3 20 mmol/L (22-26); VBG pCO2 35 mmHg; VBG pH 7.36 (7.32-7.43); VBG pO2 87 mmHg
[2022-12-27 22:18] LABS: Glucose, Whole Blood 80 mg/dL (60-115)
--- NOTE | 2022-12-27 22:18 | PC.NURSE ---
late entry- this rn at pt bedside at this time. pt mouth breathing at this time. Spo2 dropped to 87% on 4 LPM NC while changing bed linens. pt sat up at this time. 92%. Dr purvis hospitalist made aware of this at this time. once notified and hob elevated pt spo2 @ 100% on 4LPM NC. no new orders at this time
[2022-12-27 22:41] VITALS: BP 112/43; PULSE 57; RESP 18; O2SAT 95
[2022-12-27] MEDS: Insulin Glargine,Hum.rec.anlog 100 UNIT/ML 10 ML VIAL 10 UNIT SUBCUT (22:57)
[2022-12-27] MEDS: Azithromycin 500 MG in 0.9 % Sodium Chloride 250 ML 125 MG IV (22:57)
[2022-12-27] MEDS: Enoxaparin Sodium 30 MG/0.3 ML SYRINGE SUBCUT (22:58)
[2022-12-27 23:25] VITALS: BP 121/49; PULSE 56; RESP 19; TEMP 36.2; O2SAT 93
--- NOTE | 2022-12-27 23:29 | MHC.EDTECH ---
Pt unable to provide urine sample due to incontinence. DONNIE Love made aware
[2022-12-27 23:43] LABS: Influenza A PCR NEGATIVE (Negative); Influenza B PCR NEGATIVE (Negative); Resp Syncy Virus RNA Qual PCR NEGATIVE (Negative); SARS COV2 PCR INHOUSE NEGATIVE (Negative)
[2022-12-28 01:07] LABS: Appearance Urine Clear; Color Urine Yellow; Glucose Urine UA Negative (Negative); Leukocyte Esterase Urine Moderate (2+) (Negative); Nitrite Urine Negative (Negative); UMIC TRIGGER UACC YES; Urine Blood Negative (Negative); Urine Ketones Negative (Negative); Urine Protein 100 (2+) mg/dL (Neg-Trace)
[2022-12-28 01:12] LABS: Bacteria Urine 4+ (None Seen); Hyaline Casts Urine 0-2 /LPF (0-2); RBC Urine 0-2 /HPF (0-2); UACC Culture Trigger YES; WBC Urine 21-50 /HPF (0-5)
--- NOTE | 2022-12-28 02:04 | PC.NURSE ---
late entry- silva catheter placed, 400ml output upon silva insertion. pt tolerated well. pt medicated according to mar. pt hob remains elevated at this time
[2022-12-28 03:23] LABS: Glucose, Whole Blood 61 mg/dL (60-115)
[2022-12-28] MEDS: Dextrose 10 % 250 ML 750 ML IV ×2 (03:30→09:50)
--- NOTE | 2022-12-28 03:40 | PC.NURSE ---
late entry- poc on pt 61. dr purvis made aware. per dr purvis give pt prn order for d10% 250ml. pt medicated according to mar
--- NOTE | 2022-12-28 04:27 | PC.NURSE ---
late entry- poc 132 dr purvis made aware. no new orders
[2022-12-28 04:31] LABS: Glucose, Whole Blood 132 mg/dL (60-115)
--- NOTE | 2022-12-28 04:58 | PC.NURSE ---
late entry- poc 92. dr purvis made aware. per dr purvis no repeat check needed . pt resting on stretcher at this time. vss. rise and fall of chest noted
[2022-12-28 05:00] LABS: Glucose, Whole Blood 92 mg/dL (60-115)
[2022-12-28 05:19] LABS: Estimated Average Glucose 169 mg/dL; Hemoglobin A1c % 7.5 %
[2022-12-28 05:29] VITALS: BP 154/54; PULSE 56; RESP 16; TEMP 37.1; O2SAT 98
--- NOTE | 2022-12-28 05:34 | MHC.EDTECH ---
PT Bray emptied at 800cc. PT repositioned to left side. PT given warm blankets/ call peck in reach
[2022-12-28 06:02] LABS: MANUAL DIFF FLAG NO
--- NOTE | 2022-12-28 06:19 | MHC.EDTECH ---
Pt unable to spit in cup or allow for suction of sputum despite prompts. Andrews Love made aware and order marked as See Note since it remains uncollected.
[2022-12-28 06:22] LABS: Anion Gap 20 (12-20); Blood Urea Nitrogen 79 mg/dL (9-16); Carbon Dioxide 21 mmol/L (22-29); Chloride 109 mmol/L (96-108); Glucose Random 88 mg/dL (60-115); Potassium 4.2 mmol/L (3.3-5.1); Sodium 146 mmol/L (135-145)
[2022-12-28 06:23] LABS: Basophils Absolute Auto 0.1 X10*3/uL (0.0-0.2); Basophils Percent Auto 0.3 % (0-2); Eosinophils Percent Auto 0.2 % (0-4); Hematocrit 25.3 % (37.0-47.0); Hemoglobin 7.8 g/dl (12.0-16.0); Imm Gran Abs Auto 0.11 X10*3/uL (0.00-0.03); Imm Gran Pct Auto 0.7 % (0.0-0.4); Lymphocytes Percent Auto 6.1 % (20-40); Mean Corpuscular HGB Conc 30.8 g/dl (31.0-35.0); Mean Corpuscular Hemoglobin 25.6 pg (27.0-33.0); Mean Platelet Volume 11.5 fL (9.4-12.3); Monocytes Absolute Auto 0.9 X10*3/uL (0.1-1.2); Monocytes Percent Auto 5.4 % (2-11); Neutrophils Absolute Auto 14.4 x10*3/uL (2.0-8.3); Neutrophils Percent Auto 87.3 % (45-73); Platelet Count 174 X10*3/uL (160-400); Red Blood Count 3.05 X10*6/uL (4.20-5.50); Red Cell Distribution Width 16.4 % (11.0-16.0); White Blood Count 16.5 X10*3/uL (4.8-10.8)
[2022-12-28 06:23] LABS: Creatinine Clr Calc Pharmacy 10.2; Estimated Glomerular Filt Rate 8
[2022-12-28 07:29] VITALS: BP 152/50; PULSE 55; RESP 18; TEMP 36.7; O2SAT 98
[2022-12-28] MEDS: cefTRIAXone sodium 1 GM in 0.9 % Sodium Chloride 50 ML IV (09:11)
[2022-12-28 09:13] VITALS: BP 156/46; PULSE 55; RESP 17; O2SAT 96
[2022-12-28] MEDS: 0.9 % Sodium Chloride Flush 3 ML SYRINGE IVFLUSH (09:13)
[2022-12-28 09:49] LABS: Glucose, Whole Blood 53 mg/dL (60-115)
--- NOTE | 2022-12-28 09:51 | P.CONNP_ITS ---
History of Present Illness Reason for Consult Consult date: 12/28/22 Reason for consult: Advanced CKD Chief Complaint Chief complaint: Altered mentation History of Present Illness Narrative: 67-year-old female with pertinent history of CKD stage 5, congestive heart failure with reduced ejection fraction, insulin-dependent type 2 diabetes mellitus, essential hypertension, mixed hyperlipidemia, chronic opioid use, mood disorder, urinary retention, gastroesophageal reflux disease who was sent to the emergency department for evaluation of dyspnea and altered mentation.? Patient is a poor historian and history obtained from ER provider and chart review.? Patient is unable to provide review of systems and does not know why she is here.? Patient is drowsy and briefly awakens to verbal stimulus.? She was found to be hypoxemic in the ER and placed on supplemental oxygen.? As per family member, patient was sent because she was noted to have decreased mentation and she was with increased work of breathing. she is a history of urinary retention in the past she has advanced CKD approaching ESRD. Review of Systems Constitutional: Denies chills and Denies fever(s) Cardiovascular: Denies chest pain and Reports dyspnea on exertion Respiratory: Denies cough, Reports dyspnea on exertion and Denies wheezing Gastrointestinal: Denies diarrhea and Denies nausea Genitourinary: Denies hematuria Musculoskeletal: Denies joint swelling and Denies numbness Denies numbness, Denies paresthesias and Denies tremor(s) Allergic/Immunologic: Denies wheezing PMFSH Past Medical History Medical History (Updated 12/28/22 @ 09:57 by Nahum Trevizo MD) Abnormal abdominal CT scan Acute hyperkalemia Acute kidney injury superimposed on CKD Acute on chronic renal failure Acute UTI Acute worsening of stage 4 chronic kidney disease GIL (acute kidney injury) Anemia Anemia Aspiration into airway Blister of finger without infection Cardiomyopathy Cholecystectomy planned Chronic heart failure with preserved ejection fraction (HFpEF) Chronic kidney failure CKD (chronic kidney disease) CKD (chronic kidney disease) stage 3, GFR 30-59 ml/min CKD (chronic kidney disease) stage 4, GFR 15-29 ml/min CKD (chronic kidney disease) stage 5, GFR less than 15 ml/min CKD (chronic kidney disease) stage 5, GFR less than 15 ml/min CKD (chronic kidney disease), stage IV Congestive heart failure Constipation Diabetes Diabetes mellitus Elevated d-dimer Elevated troponin Essential hypertension Gastroparesis Generalized weakness GERD (gastroesophageal reflux disease) Hand pain Hernia HLD (hyperlipidemia) HTN (hypertension) Hyperkalemia Hypomagnesemia Irritable bowel syndrome with diarrhea Ischemic necrosis of finger Lightheadedness Low blood pressure Metabolic acidosis Nausea & vomiting Non-ST elevated myocardial infarction Nonischemic cardiomyopathy Normocytic anemia Other and unspecified hyperlipidemia Overflow diarrhea Pharyngoesophageal dysphagia Pneumonia Status post amputation of finger Type 2 diabetes mellitus with unspecified complications Urinary tract infection due to ESBL Klebsiella UTI (urinary tract infection) Family History Family History Father Lung cancer Mother Diabetes HTN (hypertension) Heart disease Sister Diabetes Heart disease Brother Heart disease Son Diabetes Daughter Diabetes Surgical History Surgical History H/O: hysterectomy History of esophagogastroduodenoscopy (EGD) Hx of colonoscopy Hx of eye surgery Social History Social History Household Members: Other Household Members Other:: SNF Housing: [facility] Do you presently have visiting nurse or other home services: No Unable to assess alcohol history related to: Unknown Alcohol intake: never Patient Tobacco Use Status: Never used Tobacco Second Hand Smoke Exposure: No Advance Directives Date on File: 02/02/22 service: No Current occupational status: disabled Meds Allergies Allergy/AdvReac Type Severity Reaction Status Date / Time latex [LATEX] Allergy Intermediate ITCHY Verified 12/18/22 17:49 Active Medications: Current Medications Acetaminophen (Acetaminophen 325 Mg Tablet) 650 mg PO Q6H PRN PRN Reason: Pain, Mild (Pain Scale 1-3) Acetaminophen (Acetaminophen Supp 650 Mg Supp.Rect) 650 mg WI Q6H PRN PRN Reason: Pain, Mild (Pain Scale 1-3) Enoxaparin Sodium (Enoxaparin Sodium 30 Mg/0.3 Ml Syringe) 30 mg SUBCUT Q24H [facility] Last Admin: 12/27/22 22:58 Dose: 30 mg Glucose (Glucose Gel 15 Gm Gel..Gram.) 15 gm PO Q15M PRN; Protocol PRN Reason: per Hypoglycemia Standing Ord. Ceftriaxone Sodium 1 gm/ (Sodium Chloride) 50 mls @ 100 mls/hr IV Q24H [facility] Last Admin: 12/28/22 09:11 Dose: 100 mls/hr Azithromycin 500 mg/ Sodium (Chloride) 250 mls @ 125 mls/hr IV Q24H [facility] Last Infusion: 12/28/22 01:36 Dose: Infused Dextrose (D10) 250 mls @ 750 mls/hr IV Q15M PRN; Protocol PRN Reason: per Hypoglycemia Standing Ord. Last Infusion: 12/28/22 04:00 Dose: Infused Insulin Glargine (Insulin Glargine,Hum.Rec.Anlog 100 Unit/Ml 10 Ml Vial) 10 unit SUBCUT BEDTIME [facility] Last Admin: 12/27/22 22:57 Dose: 10 unit Insulin Human Lispro (Insulin Lispro 100 Unit/Ml 3 Ml Vial) 0 unit SUBCUT Q6H [facility]; Protocol Last Admin: 12/28/22 03:21 Dose: Not Given Melatonin (Melatonin 3 Mg Tablet) 6 mg PO BEDTIME PRN PRN Reason: Insomnia Ondansetron HCl (Ondansetron Hcl 4 Mg/2 Ml Vial) 4 mg IVPUSH Q8H PRN PRN Reason: Nausea and Vomiting Pharmacy Consult (Consult Rx Perform Med Rec) 1 each MISCELLANE ONCE PRN PRN Reason: Consult order Sodium Chloride (0.9 % Sodium Chloride Flush 3 Ml Syringe) 3 ml [facility] Last Admin: 12/28/22 09:13 Dose: 3 ml Home Medications Medication Instructions Recorded Confirmed Last Taken Type aspirin 81 mg tablet,delayed 81 mg PO BEDTIME 06/20/21 12/27/22 10/14/22 History release atorvastatin 80 mg tablet 80 mg PO BEDTIME 06/20/21 12/27/22 10/13/22 History clopidogrel 75 mg tablet 75 mg PO DAILY 06/20/21 12/27/22 10/13/22 History magnesium oxide 400 mg (241.3 mg 400 mg PO DAILY 06/20/21 12/27/22 10/14/22 History magnesium) tablet trazodone 50 mg tablet 50 mg PO BEDTIME 06/20/21 12/27/22 10/13/22 History insulin glargine 100 unit/mL (3 20 unit subcut DAILY 03/25/22 12/27/22 10/14/22 History mL) subcutaneous pen (Lantus Solostar U-100 Insulin) ipratropium 0.5 mg-albuterol 3 mg 3 ml inhalation Q4H PRN Wheezing 05/05/22 12/27/22 Unknown History (2.5 mg base)/3 mL nebulization soln furosemide 40 mg tablet (Lasix) 40 mg PO DAILY 10/14/22 12/27/22 10/14/22 History insulin lispro 100 unit/mL See Protocol subcut QIDACHS 10/14/22 12/27/22 10/14/22 History subcutaneous solution (Humalog U-100 Insulin) acetaminophen 500 mg tablet 1,000 mg PO Q6H PRN Fever Or Pain 10/15/22 12/27/22 Unknown History bisacodyl 10 mg rectal suppository 10 mg WI DAILY PRN Constipation 10/15/22 12/27/22 Unknown History magnesium hydroxide 400 mg/5 mL 30 ml PO DAILY PRN Constipation 10/15/22 12/27/22 Unknown History oral suspension (Milk of Magnesia) naloxone 0.4 mg/mL injection 0.4 mg subcut Q3M PRN Opioid 10/15/22 12/27/22 Unknown History solution Overdose sodium phosphates 19 gram-7 118 ml WI DAILY PRN Constipation 10/15/22 12/27/22 Unknown History gram/118 mL enema (Fleet Enema) melatonin 3 mg tablet 3 mg PO BEDTIME 12/27/22 12/27/22 Unknown History pantoprazole 40 mg tablet,delayed 40 mg PO DAILY 12/27/22 12/27/22 Unknown History release tamsulosin 0.4 mg capsule 0.8 mg PO BEDTIME 12/27/22 12/27/22 Unknown History Physical Exam Vital Signs: Last Vital Signs Temp 98.0 F 12/28/22 07:29 Pulse 55 12/28/22 09:13 Resp 17 12/28/22 09:13 BP 156/46 H 12/28/22 09:13 Pulse Ox 96 12/28/22 09:13 O2 Del Method Nasal Cannula 12/28/22 09:13 O2 Flow Rate 4 12/28/22 09:13 Oxygen Flow Rate 4 12/27/22 18:45 BMI result Body Mass Index 37.0 Const Other: Middle-aged female lying in bed in mild distress on supplemental oxygen Neck supple, no JVD Regular rate and rhythm, S1-S2 heard Bilateral crackles without wheezing Abdomen soft nontender, no guarding, no rigidity Patient is drowsy and briefly awakens to verbal stimulus, non conversational Mild right lower extremity edema Results Lab Results 12/28/22 05:27 12/28/22 05:46 Lab results: Chemistry 12/27/22 12/28/22 18:59 05:46 Sodium 145 146 H Potassium 4.6 D 4.2 Carbon Dioxide 19 L 21 L BUN 76 H 79 H Creatinine 5.11 H* 5.05 H* Calcium 8.1 L 8.0 L Hematology 12/27/22 12/28/22 18:59 05:27 WBC 20.4 H 16.5 H Hgb 7.9 L 7.8 L Plt Count 178 174 Urinalysis 12/28/22 01:02 Urine Color Yellow Urine Appearance Clear Urine pH 5.0 Ur Specific [place] 1.010 Urine Protein 100 (2+) H Urine Glucose (UA) Negative Urine Ketones Negative Urine Blood Negative Urine Nitrite Negative Ur Leukocyte Esterase Moderate (2+) H Urine RBC 0-2 Urine WBC 21-50 H Ur Squamous Epith Cells 3-5 Hyaline Casts 0-2 Assessment and Plan (1) CKD (chronic kidney disease) stage 5, GFR less than 15 ml/min: Status: Acute Plan 67-year-old woman with a history of advanced renal failure approaching ESRD with mild fluid overload metabolic acidosis and hypernatremia With severe anemia. She is a history of urinary retention in the past. Recommendations Insert Bray catheter. Keep output more than intake with diuretics. She will require renal replacement therapy since she is approaching ESRD. I discussed dialysis with her and she says she does not want dialysis. Until she agrees for dialysis we will maximize medical management with diuresis. If she agrees for dialysis I will arrange for a temporary dialysis catheter and initiate hemodialysis. Optimize hemoglobin. Check iron TIBC ferritin. I will start Epogen. We will follow along with the team. Thank you Time Spent With Patient Time: Total time managing care of this patient today ____ minutes. Procedures Date of Service Date of Service: 12/28/22
[2022-12-28 10:14] LABS: Glucose, Whole Blood 103 mg/dL (60-115)
--- NOTE | 2022-12-28 10:21 | PC.NURSE ---
SLEPT MOST OF THE MORNING, EASILY WOKEN , POC 53 D 10 GIVEN, PT SWALLOW EVAL DONE AND PASSED, APPLE JUICE GIVEN AFTER, ALERT, TO NAME ONLY, WAS UNSURE WHERE SHE WAS, NO PAIN, NO COMPLAINTS
--- NOTE | 2022-12-28 11:21 | PC.NURSE ---
pt oriented to person only, daughter at bedside reporting that she doesn't know who she is, reports that pt is normally alert, uses a wheelchair w assistance for ADL, and likes prince. prior shift unable to obtain sputum sample, provider aware. pt pending bed assignment.
[2022-12-28 11:49] VITALS: TEMP 36.7
[2022-12-28] MEDS: Clopidogrel Bisulfate 75 MG TABLET PO (13:40)
[2022-12-28] MEDS: Bethanechol Chloride 25 MG TABLET PO (13:40)
[2022-12-28] MEDS: Furosemide 40 MG TABLET PO (13:40)
[2022-12-28] MEDS: amLODIPine Besylate 10 MG TABLET PO (13:40)
--- NOTE | 2022-12-28 13:42 | PC.NURSE ---
pt warm to touch, rectal temp WNL, vss, pt medicated per provider order. took medication whole with water. no new orders at this time.
[2022-12-28 14:54] LABS: Anion Gap 20 (12-20); Blood Urea Nitrogen 78 mg/dL (9-16); Carbon Dioxide 18 mmol/L (22-29); Chloride 111 mmol/L (96-108); Estimated Glomerular Filt Rate 8; Glucose Random 59 mg/dL (60-115); Potassium 4.3 mmol/L (3.3-5.1); Sodium 145 mmol/L (135-145)
--- NOTE | 2022-12-28 15:00 | PC.NURSE ---
RN-RN report given to [facility]. critical glucose of 59, given juice by renal dialysis technician, provider notified, medicated per provider order.
[2022-12-28] MEDS: Glucose Gel 15 GM GEL..GRAM. PO (15:09)
[2022-12-28 15:52] LABS: Glucose, Whole Blood 102 mg/dL (60-115)
[2022-12-28 15:55] VITALS: BP 102/42; PULSE 58; RESP 16; TEMP 36.6; O2SAT 91
--- NOTE | 2022-12-28 16:08 | PC.NURSE ---
pt arrived at 15:45 to unit with a POC of 102 and a BP of 102/42. She is a/o X3 but disoriented to situation. She denies any pain. Pt has stage 2 to coccyx which is now covered with foam Dsg and surrounding skin has been covered in barrier cream.
[2022-12-28 16:30] VITALS: BMI 36.6
--- NOTE | 2022-12-28 17:02 | P.PNIM_ITS ---
Subjective Subjective Date of Service: 12/28/22 Interval History: Follow up CHF, CAP and GIL feeling better, still coughing Review of Systems Review of Systems: Yes all other systems are reviewed and are negative Physical Exam Vital Signs: Vital Signs: Last Vital Signs Temp 97.8 F 12/28/22 15:55 Pulse 58 12/28/22 15:55 Resp 16 12/28/22 15:55 BP 102/42 L 12/28/22 15:55 Pulse Ox 91 L 12/28/22 15:55 O2 Del Method Nasal Cannula 12/28/22 15:55 O2 Flow Rate 4 12/28/22 15:55 Oxygen Flow Rate 4 12/27/22 18:45 BMI result Body Mass Index 36.6 Appearing in no acute distress lung sounds are clear to auscultation heart regular rate rhythm, clear S1, S2 positive bowel sounds, abdomen is soft, nontender neuro patient is alert x3, no focal deficits Objective Data Active Medications Acetaminophen (Acetaminophen 325 Mg Tablet) 650 mg PO Q6H PRN PRN Reason: Pain, Mild (Pain Scale 1-3) Acetaminophen (Acetaminophen Supp 650 Mg Supp.Rect) 650 mg PA Q6H PRN PRN Reason: Pain, Mild (Pain Scale 1-3) Amlodipine Besylate (Amlodipine Besylate 10 Mg Tablet) 10 mg PO DAILY [facility]; Protocol Last Admin: 12/28/22 13:40 Dose: 10 mg Documented By: LETICIA Aspirin (Aspirin Enteric Coated 81 Mg Tablet.) 81 mg PO BEDTIME [facility] Atorvastatin Calcium (Atorvastatin Calcium 80 Mg Tablet) 80 mg PO BEDTIME [facility] Bethanechol Chloride (Bethanechol Chloride 25 Mg Tablet) 25 mg PO BID [facility] Last Admin: 12/28/22 13:40 Dose: 25 mg Documented By: LETICIA Bisacodyl (Bisacodyl 10 Mg Supp.Rect) 10 mg PA DAILY PRN PRN Reason: Constipation Carvedilol (Carvedilol 6.25 Mg Tablet) 6.25 mg PO BID [facility]; Protocol Clopidogrel Bisulfate (Clopidogrel Bisulfate 75 Mg Tablet) 75 mg PO DAILY [facility] Last Admin: 12/28/22 13:40 Dose: 75 mg Documented By: LETICIA Enoxaparin Sodium (Enoxaparin Sodium 30 Mg/0.3 Ml Syringe) 30 mg SUBCUT Q24H [facility] Last Admin: 12/27/22 22:58 Dose: 30 mg Documented By: YAMILETH Furosemide (Furosemide 40 Mg Tablet) 40 mg PO DAILY [facility]; Protocol Last Admin: 12/28/22 13:40 Dose: 40 mg Documented By: LETICIA Glucose (Glucose Gel 15 Gm Gel..Gram.) 15 gm PO Q15M PRN; Protocol PRN Reason: per Hypoglycemia Standing Ord. Last Admin: 12/28/22 15:09 Dose: 15 gm Documented By: LETICIA Ceftriaxone Sodium 1 gm/ (Sodium Chloride) 50 mls @ 100 mls/hr IV Q24H [facility] Last Infusion: 12/28/22 11:17 Dose: 0 mls/hr Documented By: LETICIA Azithromycin 500 mg/ Sodium (Chloride) 250 mls @ 125 mls/hr IV Q24H [facility] Last Infusion: 12/28/22 01:36 Dose: 0 mls/hr Documented By: YAMILETH Dextrose (D10) 250 mls @ 750 mls/hr IV Q15M PRN; Protocol PRN Reason: per Hypoglycemia Standing Ord. Last Infusion: 12/28/22 11:18 Dose: 0 mls/hr Documented By: LETICIA Insulin Glargine (Insulin Glargine,Hum.Rec.Anlog 100 Unit/Ml 10 Ml Vial) 10 unit SUBCUT BEDTIME [facility] Last Admin: 12/27/22 22:57 Dose: 10 unit Documented By: YAMILETH Insulin Glargine (Insulin Glargine,Hum.Rec.Anlog 100 Unit/Ml 10 Ml Vial) 20 unit SUBCUT DAILY [facility] Insulin Human Lispro (Insulin Lispro 100 Unit/Ml 3 Ml Vial) 0 unit SUBCUT Q6H [facility]; Protocol Last Admin: 12/28/22 15:03 Dose: Not Given Documented By: LETICIA Non-Admin Reason: No Insulin Coverage Melatonin (Melatonin 3 Mg Tablet) 6 mg PO BEDTIME PRN PRN Reason: Insomnia Melatonin (Melatonin 3 Mg Tablet) 3 mg PO BEDTIME [facility] Omeprazole (Omeprazole 20 Mg Capsule.Dr) 20 mg PO DAILY [facility] Ondansetron HCl (Ondansetron Hcl 4 Mg/2 Ml Vial) 4 mg IVPUSH Q8H PRN PRN Reason: Nausea and Vomiting Pharmacy Consult (Consult Rx Perform Med Rec) 1 each MISCELLANE ONCE PRN PRN Reason: Consult order Sodium Bicarbonate (Sodium Bicarbonate 650 Mg Tablet) 650 mg PO BID [facility] Sodium Biphosphate/Sodium Phosphate (Sodium Phosphate,Andrew-Dibasic 133 Ml Enema) 118 ml PA DAILY PRN PRN Reason: Constipation Sodium Chloride (0.9 % Sodium Chloride Flush 3 Ml Syringe) 3 ml IVFLUSH QSHIFT [facility] Last Admin: 12/28/22 17:00 Dose: Not Given Documented By: BRITTANY Non-Admin Reason: IV Running Tamsulosin HCl (Tamsulosin Hcl 0.4 Mg Capsule) 0.8 mg PO BEDTIME [facility] Trazodone HCl (Trazodone Hcl 50 Mg Tablet) 50 mg PO BEDTIME [facility] Labs 12/28/22 05:27 12/28/22 14:05 Labs: Laboratory Results - last 24 hr 12/27/22 12/27/22 12/27/22 18:59 18:59 18:59 MCV 82.7 MCH 25.2 L MCHC 30.5 L RDW 16.3 H Plt Count 178 MPV 11.5 Immature Gran % (Auto) 0.6 H Neut % (Auto) 90.7 H Lymph % (Auto) 3.6 L Andrew % (Auto) 4.6 Eos % (Auto) 0.2 Baso % (Auto) 0.3 Lymph # (Auto) 0.7 L Andrew # (Auto) 0.9 Eos # (Auto) 0.0 Baso # (Auto) 0.1 Abs Immat Gran (auto) 0.12 H Absolute Neuts (auto) 18.5 H Absolute Nucleated RBC 0.000 Nucleated RBC % (auto) 0.0 Smear Tech's Comments VERIFIED PT INR VBG pH VBG pCO2 VBG pO2 VBG HCO3 VBG O2 Saturation VBG Base Excess Anion Gap 22 H Estim Creat Clear Calc 10.1 Estimated GFR 8 POC Glucose Random Glucose 75 Estimat Average Glucose Hemoglobin A1c % Lactic Acid 1.2 Calcium 8.1 L Total Bilirubin 0.5 AST 21 ALT 12 Alkaline Phosphatase 184 H Troponin I High Sens B-Natriuretic Peptide Total Protein 6.9 Albumin 3.5 Urine Color Urine Appearance Urine pH Ur Specific Manti Urine Protein Urine Glucose (UA) Urine Ketones Urine Blood Urine Nitrite Ur Leukocyte Esterase Urine RBC Urine WBC Ur Squamous Epith Cells Urine Bacteria Hyaline Casts Influenza Type A (PCR) Influenza Type B (PCR) RSV RNA Qual (PCR) SARS-CoV-2 RNA (RT-PCR) 12/27/22 12/27/22 12/27/22 18:59 18:59 19:26 MCV MCH MCHC RDW Plt Count MPV Immature Gran % (Auto) Neut % (Auto) Lymph % (Auto) Andrew % (Auto) Eos % (Auto) Baso % (Auto) Lymph # (Auto) Andrew # (Auto) Eos # (Auto) Baso # (Auto) Abs Immat Gran (auto) Absolute Neuts (auto) Absolute Nucleated RBC Nucleated RBC % (auto) Smear Tech's Comments PT 16.9 H INR 1.5 H VBG pH VBG pCO2 VBG pO2 VBG HCO3 VBG O2 Saturation VBG Base Excess Anion Gap Estim Creat Clear Calc Estimated GFR POC Glucose Random Glucose Estimat Average Glucose Hemoglobin A1c % Lactic Acid Calcium Total Bilirubin AST ALT Alkaline Phosphatase Troponin I High Sens 20.3 H B-Natriuretic Peptide 1588 H Total Protein Albumin Urine Color Urine Appearance Urine pH Ur Specific Manti Urine Protein Urine Glucose (UA) Urine Ketones Urine Blood Urine Nitrite Ur Leukocyte Esterase Urine RBC Urine WBC Ur Squamous Epith Cells Urine Bacteria Hyaline Casts Influenza Type A (PCR) Influenza Type B (PCR) RSV RNA Qual (PCR) SARS-CoV-2 RNA (RT-PCR) 12/27/22 12/27/22 12/27/22 21:30 21:33 22:11 MCV MCH MCHC RDW Plt Count MPV Immature Gran % (Auto) Neut % (Auto) Lymph % (Auto) Andrew % (Auto) Eos % (Auto) Baso % (Auto) Lymph # (Auto) Andrew # (Auto) Eos # (Auto) Baso # (Auto) Abs Immat Gran (auto) Absolute Neuts (auto) Absolute Nucleated RBC Nucleated RBC % (auto) Smear Tech's Comments PT INR VBG pH 7.36 VBG pCO2 35 VBG pO2 87 VBG HCO3 20 L VBG O2 Saturation 96.0 VBG Base Excess -4.4 Anion Gap Estim Creat Clear Calc Estimated GFR POC Glucose 80 Random Glucose Estimat Average Glucose 169 Hemoglobin A1c % 7.5 Lactic Acid Calcium Total Bilirubin AST ALT Alkaline Phosphatase Troponin I High Sens B-Natriuretic Peptide Total Protein Albumin Urine Color Urine Appearance Urine pH Ur Specific Manti Urine Protein Urine Glucose (UA) Urine Ketones Urine Blood Urine Nitrite Ur Leukocyte Esterase Urine RBC Urine WBC Ur Squamous Epith Cells Urine Bacteria Hyaline Casts Influenza Type A (PCR) Influenza Type B (PCR) RSV RNA Qual (PCR) SARS-CoV-2 RNA (RT-PCR) 12/27/22 12/28/22 12/28/22 22:59 01:02 03:18 MCV MCH MCHC RDW Plt Count MPV Immature Gran % (Auto) Neut % (Auto) Lymph % (Auto) Andrew % (Auto) Eos % (Auto) Baso % (Auto) Lymph # (Auto) Andrew # (Auto) Eos # (Auto) Baso # (Auto) Abs Immat Gran (auto) Absolute Neuts (auto) Absolute Nucleated RBC Nucleated RBC % (auto) Smear Tech's Comments PT INR VBG pH VBG pCO2 VBG pO2 VBG HCO3 VBG O2 Saturation VBG Base Excess Anion Gap Estim Creat Clear Calc Estimated GFR POC Glucose 61 Random Glucose Estimat Average Glucose Hemoglobin A1c % Lactic Acid Calcium Total Bilirubin AST ALT Alkaline Phosphatase Troponin I High Sens B-Natriuretic Peptide Total Protein Albumin Urine Color Yellow Urine Appearance Clear Urine pH 5.0 Ur Specific Manti 1.010 Urine Protein 100 (2+) H Urine Glucose (UA) Negative Urine Ketones Negative Urine Blood Negative Urine Nitrite Negative Ur Leukocyte Esterase Moderate (2+) H Urine RBC 0-2 Urine WBC 21-50 H Ur Squamous Epith Cells 3-5 Urine Bacteria 4+ Hyaline Casts 0-2 Influenza Type A (PCR) NEGATIVE Influenza Type B (PCR) NEGATIVE RSV RNA Qual (PCR) NEGATIVE SARS-CoV-2 RNA (RT-PCR) NEGATIVE 12/28/22 12/28/22 12/28/22 04:27 04:56 05:27 MCV 83.0 MCH 25.6 L MCHC 30.8 L RDW 16.4 H Plt Count 174 MPV 11.5 Immature Gran % (Auto) 0.7 H Neut % (Auto) 87.3 H Lymph % (Auto) 6.1 L Andrew % (Auto) 5.4 Eos % (Auto) 0.2 Baso % (Auto) 0.3 Lymph # (Auto) 1.0 L Andrew # (Auto) 0.9 Eos # (Auto) 0.0 Baso # (Auto) 0.1 Abs Immat Gran (auto) 0.11 H Absolute Neuts (auto) 14.4 H Absolute Nucleated RBC 0.000 Nucleated RBC % (auto) 0.0 Smear Tech's Comments PT INR VBG pH VBG pCO2 VBG pO2 VBG HCO3 VBG O2 Saturation VBG Base Excess Anion Gap Estim Creat Clear Calc Estimated GFR POC Glucose 132 H 92 Random Glucose Estimat Average Glucose Hemoglobin A1c % Lactic Acid Calcium Total Bilirubin AST ALT Alkaline Phosphatase Troponin I High Sens B-Natriuretic Peptide Total Protein Albumin Urine Color Urine Appearance Urine pH Ur Specific Manti Urine Protein Urine Glucose (UA) Urine Ketones Urine Blood Urine Nitrite Ur Leukocyte Esterase Urine RBC Urine WBC Ur Squamous Epith Cells Urine Bacteria Hyaline Casts Influenza Type A (PCR) Influenza Type B (PCR) RSV RNA Qual (PCR) SARS-CoV-2 RNA (RT-PCR) 12/28/22 12/28/22 12/28/22 05:46 09:45 10:10 MCV MCH MCHC RDW Plt Count MPV Immature Gran % (Auto) Neut % (Auto) Lymph % (Auto) Andrew % (Auto) Eos % (Auto) Baso % (Auto) Lymph # (Auto) Andrew # (Auto) Eos # (Auto) Baso # (Auto) Abs Immat Gran (auto) Absolute Neuts (auto) Absolute Nucleated RBC Nucleated RBC % (auto) Smear Tech's Comments PT INR VBG pH VBG pCO2 VBG pO2 VBG HCO3 VBG O2 Saturation VBG Base Excess Anion Gap 20 Estim Creat Clear Calc 10.2 Estimated GFR 8 POC Glucose 53 L* 103 Random Glucose 88 Estimat Average Glucose Hemoglobin A1c % Lactic Acid Calcium 8.0 L Total Bilirubin AST ALT Alkaline Phosphatase Troponin I High Sens B-Natriuretic Peptide Total Protein Albumin Urine Color Urine Appearance Urine pH Ur Specific Manti Urine Protein Urine Glucose (UA) Urine Ketones Urine Blood Urine Nitrite Ur Leukocyte Esterase Urine RBC Urine WBC Ur Squamous Epith Cells Urine Bacteria Hyaline Casts Influenza Type A (PCR) Influenza Type B (PCR) RSV RNA Qual (PCR) SARS-CoV-2 RNA (RT-PCR) 12/28/22 12/28/22 14:05 15:49 MCV MCH MCHC RDW Plt Count MPV Immature Gran % (Auto) Neut % (Auto) Lymph % (Auto) Andrew % (Auto) Eos % (Auto) Baso % (Auto) Lymph # (Auto) Andrew # (Auto) Eos # (Auto) Baso # (Auto) Abs Immat Gran (auto) Absolute Neuts (auto) Absolute Nucleated RBC Nucleated RBC % (auto) Smear Tech's Comments PT INR VBG pH VBG pCO2 VBG pO2 VBG HCO3 VBG O2 Saturation VBG Base Excess Anion Gap 20 Estim Creat Clear Calc 10.0 Estimated GFR 8 POC Glucose 102 Random Glucose 59 L* Estimat Average Glucose Hemoglobin A1c % Lactic Acid Calcium 8.0 L Total Bilirubin AST ALT Alkaline Phosphatase Troponin I High Sens B-Natriuretic Peptide Total Protein Albumin Urine Color Urine Appearance Urine pH Ur Specific Manti Urine Protein Urine Glucose (UA) Urine Ketones Urine Blood Urine Nitrite Ur Leukocyte Esterase Urine RBC Urine WBC Ur Squamous Epith Cells Urine Bacteria Hyaline Casts Influenza Type A (PCR) Influenza Type B (PCR) RSV RNA Qual (PCR) SARS-CoV-2 RNA (RT-PCR) Assessment and Plan (1) CKD (chronic kidney disease) stage 5, GFR less than 15 ml/min: Status: Acute Plan This is a 67-year-old female with pertinent history of CKD stage 5, congestive heart failure with reduced ejection fraction, insulin-dependent type 2 diabetes mellitus, essential hypertension, mixed hyperlipidemia, chronic opioid use, mood disorder, urinary retention, gastroesophageal reflux disease who was sent to the emergency department for evaluation of dyspnea and altered mentation. Acute hypoxemic respiratory and sepsis secondary to community-acquired pneumonia Start Rocephin and azithromycin blood cx pending supplemental oxygen as needed no hypoxia noted Acute metabolic encephalopathy secondary to above treat infection GIL on CKD stage 5 Monitor creatinine and urine output.? Nephrology consulted>rec silva cath, apparently patient is declining dialysis at this time, maximize medical management, check iron, TIBC and ferritin nephro to start epogen Normocytic anemia Secondary to renal disease No overt bleeding noted Congestive heart failure with reduced ejection fraction, chronic possible exacerbation but likely related to renal disease continue diuretic Essential hypertension Continue home diuretics and antihypertensives Elevated troponin likely type 2 in the setting of increased demand History of CVA on plavix Insulin-dependent type 2 diabetes mellitus Reduce basal insulin.? Initiating Accu-Cheks with sliding scale insulin every 6 hours Urinary tension On bethanechol and tamsulosin Chronic normocytic anemia stable HH, chronic DVT prophylaxis: Lovenox on hold due to anemia Full code Npo until mentation improves. Consulted speech DISPO LTC resident, return when medically clear Continue hospitalization for treatment of acute hypoxic respiratory failure secondary to community-acquired pneumonia Time Spent With Patient Time: Total time managing care of this patient today ____ minutes. Quality Stroke Does the patient have a stroke diagnosis?: No VTE Prior VTE?: No VTE Risk Level:: Medical - moderate - high VTE Device Contraindication: Treatment Not Indicated VTE Drug Contraindication: N/A - Med Ordered
[2022-12-28 19:55] VITALS: BP 149/61; PULSE 56; RESP 18; TEMP 36.1; O2SAT 100
[2022-12-28 20:05] LABS: Glucose, Whole Blood 62 mg/dL (60-115)
--- NOTE | 2022-12-28 20:58 | PC.NURSE ---
Pt's blood sugar was 62. Per protocol This RN gave her 250ml of D10 over 20 mins. Her blood sugar came up to [address] Stafford, this RN held both lantus and humalog. This RN also held all PO medication until speech evaluation per Dr. Stafford.
[2022-12-28] MEDS: Azithromycin 500 MG in 0.9 % Sodium Chloride 250 ML 125 MG IV (21:08)
[2022-12-28 23:07] LABS: Glucose, Whole Blood 167 mg/dL (60-115)
[2022-12-29] VITALS: BP 115/58; PULSE 54; RESP 20; TEMP 36.1; O2SAT 97
[2022-12-29 00:31] LABS: Glucose, Whole Blood 92 mg/dL (60-115)
[2022-12-29 04:00] VITALS: BP 119/53; PULSE 53; RESP 20; TEMP 36.1; O2SAT 98
[2022-12-29 04:04] LABS: Glucose, Whole Blood 82 mg/dL (60-115)
[2022-12-29 07:18] LABS: Hemoglobin 7.5 g/dl (12.0-16.0); Mean Corpuscular Hemoglobin 25.3 pg (27.0-33.0); Mean Corpuscular Volume 84.2 fL (80.0-98.0); Mean Platelet Volume 11.6 fL (9.4-12.3); Platelet Count 186 X10*3/uL (160-400); Red Blood Count 2.97 X10*6/uL (4.20-5.50); Red Cell Distribution Width 16.5 % (11.0-16.0); White Blood Count 10.9 X10*3/uL (4.8-10.8)
[2022-12-29 07:28] VITALS: BP 164/72; PULSE 55; RESP 16; TEMP 35.8; O2SAT 97
[2022-12-29 07:29] LABS: Iron 30 mcg/dL (30-160); Percent Iron Saturation 14 % (15-50); Total Iron Binding Capacity 215 mcg/dL (228-428); Unsaturated Iron Binding 185 ug/dL
[2022-12-29 07:41] LABS: Anion Gap 20 (12-20); Blood Urea Nitrogen 73 mg/dL (9-16); Calcium 8.2 mg/dL (8.4-10.2); Carbon Dioxide 21 mmol/L (22-29); Chloride 109 mmol/L (96-108); Creatinine Clr Calc Pharmacy 9.8; Estimated Glomerular Filt Rate 8; Glucose Random 83 mg/dL (60-115); Potassium 4.4 mmol/L (3.3-5.1); Sodium 146 mmol/L (135-145)
[2022-12-29 09:08] LABS: Glucose, Whole Blood 80 mg/dL (60-115)
--- NOTE | 2022-12-29 09:08 | MHC.CM.PN ---
Patient is here with Altered Mentation; CM spoke with Daughter/Adelita @ [phone] and addressed IMM with her (original will be mailed certified letter to Adelita and a copy has been placed on the chart. Patient comes from [facility] and returning there is the goal. CM has initiated and will follow for dc planning.
[2022-12-29] MEDS: Furosemide 40 MG TABLET PO (09:17)
[2022-12-29] MEDS: carvediloL 6.25 MG TABLET PO ×2 (09:17→21:44)
[2022-12-29] MEDS: Clopidogrel Bisulfate 75 MG TABLET PO (09:17)
[2022-12-29] MEDS: 0.9 % Sodium Chloride Flush 3 ML SYRINGE IVFLUSH ×3 (09:17→21:57)
[2022-12-29] MEDS: Bethanechol Chloride 25 MG TABLET PO ×2 (09:17→21:43)
[2022-12-29] MEDS: Omeprazole 20 MG CAPSULE.DR PO (09:17)
[2022-12-29] MEDS: Sodium Bicarbonate 650 MG TABLET PO ×2 (09:17→21:45)
[2022-12-29] MEDS: cefTRIAXone sodium 1 GM in 0.9 % Sodium Chloride 50 ML IV (09:17)
[2022-12-29] MEDS: amLODIPine Besylate 10 MG TABLET PO (09:17)
--- NOTE | 2022-12-29 10:44 | PM.PNNEP ---
Subjective Subjective Date of Service: 12/29/22 Interval history: Patient seen. Daughter was at bedside. nurse college was available for translation. Patient is agreeable for dialysis. Physical Exam Vital Signs: Vital Signs: Last Vital Signs Temp 96.4 F L 12/29/22 07:28 Pulse 55 12/29/22 07:28 Resp 16 12/29/22 07:28 BP 164/72 H 12/29/22 07:28 Pulse Ox 97 12/29/22 07:28 O2 Del Method Nasal Cannula 12/29/22 07:28 O2 Flow Rate 3 12/29/22 07:28 Oxygen Flow Rate 4 12/27/22 18:45 BMI result Body Mass Index 36.6 Const: Other: Middle-aged female lying in bed in mild distress on supplemental oxygen Neck supple, no JVD Regular rate and rhythm, S1-S2 heard Bilateral crackles without wheezing Abdomen soft nontender, no guarding, no rigidity Patient is drowsy and briefly awakens to verbal stimulus, non conversational Mild right lower extremity edema Objective Data Labs 12/29/22 06:36 12/29/22 06:36 Labs: Laboratory Results - last 24 hr 12/28/22 12/28/22 12/28/22 14:05 15:49 20:01 WBC RBC Hgb Hct MCV MCH MCHC RDW Plt Count MPV Absolute Nucleated RBC Nucleated RBC % (auto) Sodium 145 Potassium 4.3 Chloride 111 H Carbon Dioxide 18 L Anion Gap 20 BUN 78 H Creatinine 5.15 H* Estim Creat Clear Calc 10.0 Estimated GFR 8 POC Glucose 102 62 Random Glucose 59 L* Calcium 8.0 L Iron TIBC % Saturation Unsat Iron Binding 12/28/22 12/29/22 12/29/22 20:46 00:27 04:00 WBC RBC Hgb Hct MCV MCH MCHC RDW Plt Count MPV Absolute Nucleated RBC Nucleated RBC % (auto) Sodium Potassium Chloride Carbon Dioxide Anion Gap BUN Creatinine Estim Creat Clear Calc Estimated GFR POC Glucose 167 H 92 82 Random Glucose Calcium Iron TIBC % Saturation Unsat Iron Binding 12/29/22 12/29/22 12/29/22 06:36 06:36 06:36 WBC 10.9 H RBC 2.97 L Hgb 7.5 L Hct 25.0 L MCV 84.2 MCH 25.3 L MCHC 30.0 L RDW 16.5 H Plt Count 186 MPV 11.6 Absolute Nucleated RBC 0.000 Nucleated RBC % (auto) 0.0 Sodium 146 H Potassium 4.4 Chloride 109 H Carbon Dioxide 21 L Anion Gap 20 BUN 73 H Creatinine 5.25 H* Estim Creat Clear Calc 9.8 Estimated GFR 8 POC Glucose Random Glucose 83 Calcium 8.2 L Iron 30 TIBC 215 L % Saturation 14 L Unsat Iron Binding 185 12/29/22 09:04 WBC RBC Hgb Hct MCV MCH MCHC RDW Plt Count MPV Absolute Nucleated RBC Nucleated RBC % (auto) Sodium Potassium Chloride Carbon Dioxide Anion Gap BUN Creatinine Estim Creat Clear Calc Estimated GFR POC Glucose 80 Random Glucose Calcium Iron TIBC % Saturation Unsat Iron Binding Microbiology Microbiology Results: Microbiology 12/28/22 Unknown Urine Catheterized - Straight Catheter Urine Culture - Preliminary Gram negative eva 12/27/22 19:26 Blood - Venous Blood Culture - Preliminary No growth after 24 hours. 12/27/22 18:59 Blood - Venous Blood Culture - Preliminary No growth after 24 hours. Procedures Date of Service Date of Service: 12/29/22 Assessment & Plan Assessment and plan (1) CKD (chronic kidney disease) stage 5, GFR less than 15 ml/min: Status: Acute Plan 67-year-old woman with a history of advanced renal failure approaching ESRD with mild fluid overload metabolic acidosis and hypernatremia With severe anemia. She is a history of urinary retention in the past. Recommendations Keep output more than intake with diuretics. She will require renal replacement therapy since she is approaching ESRD. I have discussed with the patient and her daughter regarding dialysis. They are both in agreement for initiation of dialysis. We will order a PermCath and initiate hemodialysis today. Remove fluid as tolerated. I will arrange for outpatient dialysis as well. Optimize hemoglobin. Check iron TIBC ferritin. I will start Epogen. We will follow along with the team. Thank you Time Spent With Patient Time: Total time managing care of this patient today ____ minutes. Progress Note: Quality Stroke Does the patient have a stroke diagnosis?: No
--- NOTE | 2022-12-29 12:26 | HO.PM.IMPN ---
Subjective Subjective Date of Service: 12/29/22 Interval History: seen and examined this morning history obtained with the Assistance of a ferryboat ticket taker patient reports intermittent cough but denies shortness of breath. Overall feels that her breathing may be slightly improved compared to yesterday. Discussed dialysis with daughter at bedside - although patient has declined in the past she is now agreeable Review of Systems Review of Systems: Yes all other systems are reviewed and are negative Constitutional Constitutional: Denies chills and Denies fever(s) Cardiovascular Cardiovascular: Denies chest pain and Reports dyspnea Respiratory Respiratory: Reports cough and Reports dyspnea Gastrointestinal Gastrointestinal: Denies abdominal pain Physical Exam Vital Signs: Vital Signs: Last Vital Signs Temp 96.4 F L 12/29/22 07:28 Pulse 55 12/29/22 07:28 Resp 16 12/29/22 07:28 BP 164/72 H 12/29/22 07:28 Pulse Ox 97 12/29/22 07:28 O2 Del Method Nasal Cannula 12/29/22 07:28 O2 Flow Rate 3 12/29/22 07:28 Oxygen Flow Rate 4 12/27/22 18:45 BMI result Body Mass Index 36.6 Const: General: alert and awake Nutritional Appearance: overweight Resp: Other: b/l crackles Effort & Inspection: not tachypneic Cardio: Rate: regular rate GI: Inspection: No distended Palpation (GI): Soft to palpation Extrem: Other: s/p left BKA Objective Data Active Medications Acetaminophen (Acetaminophen 325 Mg Tablet) 650 mg PO Q6H PRN PRN Reason: Pain, Mild (Pain Scale 1-3) Acetaminophen (Acetaminophen Supp 650 Mg Supp.Rect) 650 mg AR Q6H PRN PRN Reason: Pain, Mild (Pain Scale 1-3) Amlodipine Besylate (Amlodipine Besylate 10 Mg Tablet) 10 mg PO DAILY MATTY; Protocol Last Admin: 12/29/22 09:17 Dose: 10 mg Documented By: AGNES Aspirin (Aspirin Enteric Coated 81 Mg Tablet.) 81 mg PO BEDTIME [facility] Last Admin: 12/28/22 21:02 Dose: Not Given Documented By: CHRIS Non-Admin Reason: NPO Atorvastatin Calcium (Atorvastatin Calcium 80 Mg Tablet) 80 mg PO BEDTIME [facility] Last Admin: 12/28/22 21:02 Dose: Not Given Documented By: CHRIS Non-Admin Reason: NPO Bethanechol Chloride (Bethanechol Chloride 25 Mg Tablet) 25 mg PO BID [facility] Last Admin: 12/29/22 09:17 Dose: 25 mg Documented By: AGNES Bisacodyl (Bisacodyl 10 Mg Supp.Rect) 10 mg AR DAILY PRN PRN Reason: Constipation Carvedilol (Carvedilol 6.25 Mg Tablet) 6.25 mg PO BID [facility]; Protocol Last Admin: 12/29/22 09:17 Dose: 6.25 mg Documented By: AGNES Clopidogrel Bisulfate (Clopidogrel Bisulfate 75 Mg Tablet) 75 mg PO DAILY [facility] Last Admin: 12/29/22 09:17 Dose: 75 mg Documented By: AGNES Enoxaparin Sodium (Enoxaparin Sodium 30 Mg/0.3 Ml Syringe) 30 mg SUBCUT Q24H [facility] Last Admin: 12/27/22 22:58 Dose: 30 mg Documented By: YAMILETH Furosemide (Furosemide 40 Mg Tablet) 40 mg PO DAILY [facility]; Protocol Last Admin: 12/29/22 09:17 Dose: 40 mg Documented By: AGNES Glucose (Glucose Gel 15 Gm Gel..Gram.) 15 gm PO Q15M PRN; Protocol PRN Reason: per Hypoglycemia Standing Ord. Last Admin: 12/28/22 15:09 Dose: 15 gm Documented By: LETICIA Ceftriaxone Sodium 1 gm/ (Sodium Chloride) 50 mls @ 100 mls/hr IV Q24H [facility] Last Infusion: 12/29/22 10:24 Dose: 0 mls/hr Documented By: AGNES Azithromycin 500 mg/ Sodium (Chloride) 250 mls @ 125 mls/hr IV Q24H [facility] Last Infusion: 12/28/22 23:59 Dose: 0 mls/hr Documented By: CHRIS Dextrose (D10) 250 mls @ 750 mls/hr IV Q15M PRN; Protocol PRN Reason: per Hypoglycemia Standing Ord. Last Infusion: 12/28/22 11:18 Dose: 0 mls/hr Documented By: LETICIA Insulin Glargine (Insulin Glargine,Hum.Rec.Anlog 100 Unit/Ml 10 Ml Vial) 10 unit SUBCUT BEDTIME [facility] Last Admin: 12/28/22 21:03 Dose: Not Given Documented By: CHRIS Non-Admin Reason: No Insulin Coverage Insulin Glargine (Insulin Glargine,Hum.Rec.Anlog 100 Unit/Ml 10 Ml Vial) 20 unit SUBCUT DAILY [facility] Last Admin: 12/29/22 09:53 Dose: Not Given Documented By: AGNES Non-Admin Reason: NPO Insulin Human Lispro (Insulin Lispro 100 Unit/Ml 3 Ml Vial) 0 unit SUBCUT Q6H [facility]; Protocol Last Admin: 12/29/22 09:52 Dose: Not Given Documented By: AGNES Non-Admin Reason: NPO Melatonin (Melatonin 3 Mg Tablet) 6 mg PO BEDTIME PRN PRN Reason: Insomnia Melatonin (Melatonin 3 Mg Tablet) 3 mg PO BEDTIME [facility] Last Admin: 12/28/22 21:03 Dose: Not Given Documented By: CHRIS Non-Admin Reason: NPO Omeprazole (Omeprazole 20 Mg Capsule.Dr) 20 mg PO DAILY [facility] Last Admin: 12/29/22 09:17 Dose: 20 mg Documented By: AGNES Ondansetron HCl (Ondansetron Hcl 4 Mg/2 Ml Vial) 4 mg IVPUSH Q8H PRN PRN Reason: Nausea and Vomiting Pharmacy Consult (Consult Rx Perform Med Rec) 1 each MISCELLANE ONCE PRN PRN Reason: Consult order Sodium Bicarbonate (Sodium Bicarbonate 650 Mg Tablet) 650 mg PO BID [facility] Last Admin: 12/29/22 09:17 Dose: 650 mg Documented By: AGNES Sodium Biphosphate/Sodium Phosphate (Sodium Phosphate,[place]-Dibasic 133 Ml Enema) 118 ml AR DAILY PRN PRN Reason: Constipation Sodium Chloride (0.9 % Sodium Chloride Flush 3 Ml Syringe) 3 ml IVFLUSH QSHIFT [facility] Last Admin: 12/29/22 09:17 Dose: 3 ml Documented By: AGNES Tamsulosin HCl (Tamsulosin Hcl 0.4 Mg Capsule) 0.8 mg PO BEDTIME [facility] Last Admin: 12/28/22 21:03 Dose: Not Given Documented By: CHRIS Non-Admin Reason: NPO Trazodone HCl (Trazodone Hcl 50 Mg Tablet) 50 mg PO BEDTIME [facility] Last Admin: 12/28/22 21:03 Dose: Not Given Documented By: CHRIS Non-Admin Reason: NPO Labs 12/29/22 06:36 12/29/22 06:36 Labs: Laboratory Results - last 24 hr 12/28/22 12/28/22 12/28/22 14:05 15:49 20:01 MCV MCH MCHC RDW Plt Count MPV Absolute Nucleated RBC Nucleated RBC % (auto) Anion Gap 20 Estim Creat Clear Calc 10.0 Estimated GFR 8 POC Glucose 102 62 Random Glucose 59 L* Calcium 8.0 L Iron TIBC % Saturation Unsat Iron Binding 12/28/22 12/29/22 12/29/22 20:46 00:27 04:00 MCV MCH MCHC RDW Plt Count MPV Absolute Nucleated RBC Nucleated RBC % (auto) Anion Gap Estim Creat Clear Calc Estimated GFR POC Glucose 167 H 92 82 Random Glucose Calcium Iron TIBC % Saturation Unsat Iron Binding 12/29/22 12/29/22 12/29/22 06:36 06:36 06:36 MCV 84.2 MCH 25.3 L MCHC 30.0 L RDW 16.5 H Plt Count 186 MPV 11.6 Absolute Nucleated RBC 0.000 Nucleated RBC % (auto) 0.0 Anion Gap 20 Estim Creat Clear Calc 9.8 Estimated GFR 8 POC Glucose Random Glucose 83 Calcium 8.2 L Iron 30 TIBC 215 L % Saturation 14 L Unsat Iron Binding 185 12/29/22 09:04 MCV MCH MCHC RDW Plt Count MPV Absolute Nucleated RBC Nucleated RBC % (auto) Anion Gap Estim Creat Clear Calc Estimated GFR POC Glucose 80 Random Glucose Calcium Iron TIBC % Saturation Unsat Iron Binding Microbiology Microbiology Results: Microbiology 12/28/22 Unknown Urine Culture - Preliminary Urine Catheterized - Straight Catheter Gram negative eva 12/27/22 19:26 Blood Culture - Preliminary Blood - Venous No growth after 24 hours. 12/27/22 18:59 Blood Culture - Preliminary Blood - Venous No growth after 24 hours. Assessment and Plan (1) CKD (chronic kidney disease) stage 5, GFR less than 15 ml/min: Status: Acute Plan This is a 67-year-old female with pertinent history of CKD stage 5, congestive heart failure with reduced ejection fraction, insulin-dependent type 2 diabetes mellitus, essential hypertension, mixed hyperlipidemia, chronic opioid use, mood disorder, urinary retention, gastroesophageal reflux disease who was sent to the emergency department for evaluation of dyspnea and altered mentation. Acute hypoxemic respiratory and sepsis secondary to community-acquired pneumonia continue IV Rocephin and azithromycin blood cx negative to date wean oxygen as tolerated Acute on chronic HFrEF likely related to severe renal disease has agreed to HD continue home lasix Acute metabolic encephalopathy secondary to above seems to be improving GIL on CKD stage 5 with metabolic acidosis Monitor creatinine and urine output.? Nephrology consulted>rec silva cath patient agreeable to HD at this time, permcath ordered, plan to initiate HD nephro to start epogen continue sodium bicarb Normocytic anemia Secondary to renal disease No overt bleeding noted UTI urine culture prelim GRN on ceftriaxone for PNA follow final culture results Essential hypertension Continue home diuretics and antihypertensives Elevated troponin likely type 2 in the setting of increased demand/reduced renal clearance lower then previous, no chest pain History of CVA asa/plavix, statin Insulin-dependent type 2 diabetes mellitus sugar overall on lower side Reduce basal insulin.?Follow POCs, SSI Urinary retension On bethanechol and tamsulosin Chronic normocytic anemia stable HH, chronic DVT prophylaxis: Lovenox on hold due to anemia Full code Npo until mentation improves. Consulted speech attending - dr. krystle PEREZ [facility] resident, return when medically clear Continue hospitalization for treatment of acute hypoxic respiratory failure secondary to community-acquired pneumonia Time Spent With Patient Time: Total time managing care of this patient today ____ minutes. Quality Stroke Does the patient have a stroke diagnosis?: No VTE Prior VTE?: No VTE Risk Level:: Medical - moderate - high VTE Device Contraindication: Treatment Not Indicated VTE Drug Contraindication: N/A - Med Ordered
[2022-12-29 16:00] VITALS: BP 126/60; PULSE 58; RESP 18; TEMP 36.6; O2SAT 97
[2022-12-29 16:22] LABS: Glucose, Whole Blood 107 mg/dL (60-115)
[2022-12-29] MEDS: Nystatin Powder 15 GM BOTTLE 1 APPL TOPICAL ×2 (17:54→21:57)
--- NOTE | 2022-12-29 18:34 | MHC.SL.SWA ---
Speech Pathologist Impression: Risk of Aspiration Due to: History of Pneumonia Dysphasia Diet Status: Regular diet with thin liquids, pills whole with liquid or puree. Liquid Consistency and Strategies for Safe Swallow: Liquid Intake Recommendation: Thin Liquid Intake Strategies: Small Sips Solid Food Consistency: Dietary Recommendations: Regular Additional Modifications to Solid Foods: Patient may need assistance with cutting larger pieces of food into smaller bites, due to missing digits on hand. Oral Medication Intake: Whole with Liquid Please contact the pharmacy regarding appropriate crushable or liquid drug formulations that are available whenever modified delivery is recommended. Compensatory Strategies and Precautions to be Taken for Safe Swallow: Sitting Upright (90 deg) Liquids from Cup Small Bites and Sips Supervision While Eating and Drinking for Safe Swallow: Intermittent Supervision Foods to Avoid: Large pieces of uncut meat or vegetables. Swallowing Recommended Treatments: Recommendation for Speech: NA:Typical Evaluation Comment: Patient presents with all aspects of swallow WFL. Recommend start diet of REGULAR with THIN LIQUIDS, Pills whole with liquid or puree. Patient will need assistance initially with tray, due to manual impairment (missing fingers). Assure that all items on tray are opened for patient and assist patient with cutting larger pieces of food into smaller bite sized amounts. Patient is otherwise able to self feed/independent. MD RD notified of recommendation by secure text, RN in person. No further RECORDS SUPERVISOR services needed at this time, will DC from RECORDS SUPERVISOR. Frequency/Duration: Date Range for Service Req: Timeline to reassess: Garden Consultant Clinican/Clinical Fellow: No Supervisory Statement: I have reviewed and agree with the student/clinical fellow's documentation: N/A Speech Language Pathologist: Reshma White M.A., [facility]-RECORDS SUPERVISOR
[2022-12-29 19:52] VITALS: BP 164/65; PULSE 59; RESP 18; TEMP 37.1; O2SAT 97
[2022-12-29 20:11] LABS: Glucose, Whole Blood 141 mg/dL (60-115)
[2022-12-29] MEDS: Aspirin Enteric Coated 81 MG TABLET.DR PO (21:42)
[2022-12-29] MEDS: Melatonin 3 MG TABLET PO (21:44)
[2022-12-29] MEDS: traZODone HCL 50 MG TABLET PO (21:44)
[2022-12-29] MEDS: Atorvastatin Calcium 80 MG TABLET PO (21:45)
[2022-12-29] MEDS: Tamsulosin HCL 0.4 MG CAPSULE 0.8 MG PO (21:45)
[2022-12-29] MEDS: Insulin Glargine,Hum.rec.anlog 100 UNIT/ML 10 ML VIAL 10 UNIT SUBCUT (21:51)
[2022-12-29] MEDS: Azithromycin 500 MG in 0.9 % Sodium Chloride 250 ML 125 MG IV (22:05)
[2022-12-29 23:59] VITALS: BP 144/64; PULSE 56; RESP 18; TEMP 36.4; O2SAT 98
[2022-12-30] VITALS (8 sets, daily range): BP systolic 130–178; BP diastolic 37–73; PULSE 53–68; RESP 16–24; TEMP 35.7–36.3; O2SAT 93–99; BMI 36.6
[2022-12-30 03:39] LABS: Glucose, Whole Blood 89 mg/dL (60-115)
[2022-12-30 06:04] LABS: Hematocrit 24.5 % (37.0-47.0); Hemoglobin 7.2 g/dl (12.0-16.0); Mean Corpuscular HGB Conc 29.4 g/dl (31.0-35.0); Mean Corpuscular Hemoglobin 24.6 pg (27.0-33.0); Mean Corpuscular Volume 83.6 fL (80.0-98.0); Mean Platelet Volume 10.1 fL (9.4-12.3); Platelet Count 164 X10*3/uL (160-400); Red Blood Count 2.93 X10*6/uL (4.20-5.50); Red Cell Distribution Width 16.2 % (11.0-16.0); White Blood Count 9.9 X10*3/uL (4.8-10.8)
[2022-12-30 06:36] LABS: Anion Gap 19 (12-20); Blood Urea Nitrogen 72 mg/dL (9-16); Calcium 8.1 mg/dL (8.4-10.2); Carbon Dioxide 22 mmol/L (22-29); Chloride 112 mmol/L (96-108); Creatinine Clr Calc Pharmacy 10.4; Estimated Glomerular Filt Rate 9; Glucose Random 85 mg/dL (60-115); Potassium 3.9 mmol/L (3.3-5.1); Sodium 149 mmol/L (135-145)
[2022-12-30] MEDS: Furosemide 40 MG TABLET PO (07:40)
[2022-12-30] MEDS: Sodium Bicarbonate 650 MG TABLET PO (07:40)
[2022-12-30] MEDS: Bethanechol Chloride 25 MG TABLET PO ×2 (07:41→20:35)
[2022-12-30] MEDS: Clopidogrel Bisulfate 75 MG TABLET PO (07:41)
[2022-12-30] MEDS: cefTRIAXone sodium 1 GM in 0.9 % Sodium Chloride 50 ML IV (07:41)
[2022-12-30] MEDS: Omeprazole 20 MG CAPSULE.DR PO (07:41)
[2022-12-30] MEDS: 0.9 % Sodium Chloride Flush 3 ML SYRINGE IVFLUSH ×3 (07:41→20:34)
[2022-12-30] MEDS: Nystatin Powder 15 GM BOTTLE 1 APPL TOPICAL ×2 (07:54→20:42)
[2022-12-30 08:00] LABS: Glucose, Whole Blood 74 mg/dL (60-115)
[2022-12-30] MEDS: amLODIPine Besylate 10 MG TABLET PO (09:05)
[2022-12-30 09:49] LABS: HBS Num1 0.22 mIU/mL (0-7.99); HBc Num1 0.21 S/CO (0.00-0.79); HBsAGNum1 0.35 S/CO (0.00-0.99); Hepatitis B Core Antibody Nonreactive (Nonreactive); Hepatitis B Surface Antigen Negative (Negative); ~Hepatitis B Surface Antibody NONREACTIVE (Nonreactive)
--- NOTE | 2022-12-30 10:35 | MHC.CM.PN ---
Per ROUNDS discussion, Patient is not yet medically cleared for dc (getting her HD catheter today); Returning to [facility] is the goal and CM will continue to follow.
--- NOTE | 2022-12-30 11:22 | P.PNNP_ITS ---
Subjective Subjective Date of Service: 12/30/22 Interval history: seen and examined this morning. D/W daughter by bedside. Due HD catheter today Physical Exam Vital Signs: Vital Signs: Last Vital Signs Temp 97.4 F 12/30/22 03:28 Pulse 53 12/30/22 07:26 Resp 16 12/30/22 07:26 BP 144/73 H 12/30/22 07:26 Pulse Ox 99 12/30/22 07:26 O2 Del Method Nasal Cannula 12/30/22 07:26 O2 Flow Rate 3 12/30/22 07:26 Oxygen Flow Rate 4 12/27/22 18:45 BMI result Body Mass Index 36.6 Const: General: no acute distress Eyes: EOM: EOMs intact bilaterally Resp: Auscultation: diminished lung sounds Cardio: Rate: regular rate GI: Palpation (GI): Soft to palpation Neuro: Other: Alert and awake Objective Data Labs 12/30/22 05:52 12/30/22 05:52 Labs: Laboratory Results - last 24 hr 12/29/22 12/29/22 12/30/22 16:17 20:00 03:32 WBC RBC Hgb Hct MCV MCH MCHC RDW Plt Count MPV Absolute Nucleated RBC Nucleated RBC % (auto) Sodium Potassium Chloride Carbon Dioxide Anion Gap BUN Creatinine Estim Creat Clear Calc Estimated GFR POC Glucose 107 141 H 89 Random Glucose Calcium Hep Bs Antigen Hep Bs Antibody Hep B Core Total Ab Blood Type Antibody Screen Crossmatch 12/30/22 12/30/22 12/30/22 05:52 05:52 07:56 WBC 9.9 RBC 2.93 L Hgb 7.2 L Hct 24.5 L MCV 83.6 MCH 24.6 L MCHC 29.4 L RDW 16.2 H Plt Count 164 MPV 10.1 Absolute Nucleated RBC 0.000 Nucleated RBC % (auto) 0.0 Sodium 149 H Potassium 3.9 Chloride 112 H Carbon Dioxide 22 Anion Gap 19 BUN 72 H Creatinine 4.94 H* Estim Creat Clear Calc 10.4 Estimated GFR 9 POC Glucose 74 Random Glucose 85 Calcium 8.1 L Hep Bs Antigen Hep Bs Antibody Hep B Core Total Ab Blood Type Antibody Screen Crossmatch 12/30/22 12/30/22 08:09 08:09 WBC RBC Hgb Hct MCV MCH MCHC RDW Plt Count MPV Absolute Nucleated RBC Nucleated RBC % (auto) Sodium Potassium Chloride Carbon Dioxide Anion Gap BUN Creatinine Estim Creat Clear Calc Estimated GFR POC Glucose Random Glucose Calcium Hep Bs Antigen Negative Hep Bs Antibody NONREACTIVE Hep B Core Total Ab Nonreactive Blood Type B Positive Antibody Screen NEGATIVE Crossmatch See Detail Microbiology Microbiology Results: Microbiology 12/28/22 Unknown Urine Catheterized - Straight Catheter Urine Culture - Final Escherichia coli 12/27/22 19:26 Blood - Venous Blood Culture - Preliminary No growth after 48 hours. 12/27/22 18:59 Blood - Venous Blood Culture - Preliminary No growth after 48 hours. Procedures Date of Service Date of Service: 12/30/22 Assessment & Plan Assessment and plan (1) Acute on chronic renal failure: Status: Acute Assessment and Plan: 67-year-old woman with a history of advanced renal failure approaching ESRD ? For Dialysis catheter today. IR does not want to insert Permcath as she is on Plavix IR going to do temporary HD catheter today. HD today, tomorrow and Monday ( ordered) Needs Permcath after weekend. Outpt HD spot arranged in [facility] 1? [place] [id number] Units one time today Progress Note: Quality Stroke Does the patient have a stroke diagnosis?: No
--- NOTE | 2022-12-30 11:53 | PC.NURSE ---
Blood to be given by dialysis nurse during treatment.
--- NOTE | 2022-12-30 14:47 | HO.PM.IMPN ---
Subjective Subjective Date of Service: 12/30/22 Interval History: seen and examined this morning no overnight events history obtained with assistance of asl interpreter pt denies sob, does report cough Review of Systems Review of Systems: Yes all other systems are reviewed and are negative Constitutional Constitutional: Denies chills and Denies fever(s) Cardiovascular Cardiovascular: Denies chest pain and Denies dyspnea Respiratory Respiratory: Reports cough and Denies dyspnea Gastrointestinal Gastrointestinal: Denies abdominal pain Physical Exam Vital Signs: Vital Signs: Last Vital Signs Temp 96.2 F L 12/30/22 14:40 Pulse 68 12/30/22 14:40 Resp 24 H 12/30/22 14:40 BP 133/37 L 12/30/22 14:40 Pulse Ox 93 12/30/22 12:55 O2 Del Method Nasal Cannula 12/30/22 12:55 O2 Flow Rate 3 12/30/22 12:55 Oxygen Flow Rate 4 12/27/22 18:45 BMI result Body Mass Index 36.6 Const: General: alert and awake Nutritional Appearance: overweight Resp: Other: b/l rhonchi Effort & Inspection: not tachypneic Cardio: Rate: regular rate GI: Inspection: No distended Palpation (GI): Soft to palpation Extrem: Other: s/p left BKA Objective Data Active Medications Acetaminophen (Acetaminophen 325 Mg Tablet) 650 mg PO Q6H PRN PRN Reason: Pain, Mild (Pain Scale 1-3) Acetaminophen (Acetaminophen Supp 650 Mg Supp.Rect) 650 mg [place] Q6H PRN PRN Reason: Pain, Mild (Pain Scale 1-3) Amlodipine Besylate (Amlodipine Besylate 10 Mg Tablet) 10 mg PO DAILY [facility]; Protocol Last Admin: 12/30/22 09:05 Dose: 10 mg Documented By: JAYSHREE Aspirin (Aspirin Enteric Coated 81 Mg Tablet.Dr) 81 mg PO BEDTIME [facility] Last Admin: 12/29/22 21:42 Dose: 81 mg Documented By: KASIE Atorvastatin Calcium (Atorvastatin Calcium 80 Mg Tablet) 80 mg PO BEDTIME [facility] Last Admin: 12/29/22 21:45 Dose: 80 mg Documented By: KASIE Bethanechol Chloride (Bethanechol Chloride 25 Mg Tablet) 25 mg PO BID [facility] Last Admin: 12/30/22 07:41 Dose: 25 mg Documented By: JAYSHREE Bisacodyl (Bisacodyl 10 Mg Supp.Rect) 10 mg [place] DAILY PRN PRN Reason: Constipation Carvedilol (Carvedilol 6.25 Mg Tablet) 6.25 mg PO BID [facility]; Protocol Last Admin: 12/30/22 09:07 Dose: Not Given Documented By: JAYSHREE Non-Admin Reason: Physician Held Med Clopidogrel Bisulfate (Clopidogrel Bisulfate 75 Mg Tablet) 75 mg PO DAILY [facility] Last Admin: 12/30/22 07:41 Dose: 75 mg Documented By: JAYSHREE Enoxaparin Sodium (Enoxaparin Sodium 30 Mg/0.3 Ml Syringe) 30 mg SUBCUT Q24H [facility] Last Admin: 12/27/22 22:58 Dose: 30 mg Documented By: YAMILETH Furosemide (Furosemide 40 Mg Tablet) 40 mg PO DAILY [facility]; Protocol Last Admin: 12/30/22 07:40 Dose: 40 mg Documented By: JAYSHREE Glucose (Glucose Gel 15 Gm Gel..Gram.) 15 gm PO Q15M PRN; Protocol PRN Reason: per Hypoglycemia Standing Ord. Last Admin: 12/28/22 15:09 Dose: 15 gm Documented By: LETICIA Heparin Sodium (Porcine) (Heparin Sodium,Porcine 5,000 Unit/Ml Vial) 5,000 unit INTRACATH ONCE ONE Stop: 12/31/22 06:29 Heparin Sodium (Porcine) (Heparin Sodium,Porcine 5,000 Unit/Ml Vial) 5,000 unit INTRACATH ONCE ONE Stop: 01/02/23 06:30 Ceftriaxone Sodium 1 gm/ (Sodium Chloride) 50 mls @ 100 mls/hr IV Q24H [facility] Last Infusion: 12/30/22 09:17 Dose: 0 mls/hr Documented By: AGNES Azithromycin 500 mg/ Sodium (Chloride) 250 mls @ 125 mls/hr IV Q24H [facility] Last Infusion: 12/30/22 00:10 Dose: 0 mls/hr Documented By: COSME-LINDSAY Dextrose (D10) 250 mls @ 750 mls/hr IV Q15M PRN; Protocol PRN Reason: per Hypoglycemia Standing Ord. Last Infusion: 12/28/22 11:18 Dose: 0 mls/hr Documented By: LETICIA Insulin Glargine (Insulin Glargine,Hum.Rec.Anlog 100 Unit/Ml 10 Ml Vial) 10 unit SUBCUT BEDTIME [facility] Last Admin: 12/29/22 21:51 Dose: 10 unit Documented By: KASIE Insulin Glargine (Insulin Glargine,Hum.Rec.Anlog 100 Unit/Ml 10 Ml Vial) 20 unit SUBCUT DAILY [facility] Last Admin: 12/29/22 09:53 Dose: Not Given Documented By: AGNES Non-Admin Reason: NPO Insulin Human Lispro (Insulin Lispro 100 Unit/Ml 3 Ml Vial) 0 unit SUBCUT Q6H [facility]; Protocol Last Admin: 12/30/22 07:52 Dose: Not Given Documented By: JAYSHREE Non-Admin Reason: NPO Melatonin (Melatonin 3 Mg Tablet) 6 mg PO BEDTIME PRN PRN Reason: Insomnia Melatonin (Melatonin 3 Mg Tablet) 3 mg PO BEDTIME [facility] Last Admin: 12/29/22 21:44 Dose: 3 mg Documented By: KASIE Nystatin (Nystatin Powder 15 Gm Bottle) 1 appl TOPICAL BID [facility]; Protocol Last Admin: 12/30/22 07:54 Dose: 1 appl Documented By: JAYSHREE Omeprazole (Omeprazole 20 Mg Capsule.Dr) 20 mg PO DAILY [facility] Last Admin: 12/30/22 07:41 Dose: 20 mg Documented By: JAYSHREE Ondansetron HCl (Ondansetron Hcl 4 Mg/2 Ml Vial) 4 mg IVPUSH Q8H PRN PRN Reason: Nausea and Vomiting Pharmacy Consult (Consult Rx Perform Med Rec) 1 each MISCELLANE ONCE PRN PRN Reason: Consult order Sodium Biphosphate/Sodium Phosphate (Sodium Phosphate,[place]-Dibasic 133 Ml Enema) 118 ml HI DAILY PRN PRN Reason: Constipation Sodium Chloride (0.9 % Sodium Chloride Flush 3 Ml Syringe) 3 ml IVFLUSH QSHIFT [facility] Last Admin: 12/30/22 07:41 Dose: 3 ml Documented By: JAYSHREE Tamsulosin HCl (Tamsulosin Hcl 0.4 Mg Capsule) 0.8 mg PO BEDTIME [facility] Last Admin: 12/29/22 21:45 Dose: 0.8 mg Documented By: KASIE Trazodone HCl (Trazodone Hcl 50 Mg Tablet) 50 mg PO BEDTIME [facility] Last Admin: 12/29/22 21:44 Dose: 50 mg Documented By: KASIE Labs 12/30/22 05:52 12/30/22 05:52 Labs: Laboratory Results - last 24 hr 12/29/22 12/29/22 12/30/22 16:17 20:00 03:32 MCV MCH MCHC RDW Plt Count MPV Absolute Nucleated RBC Nucleated RBC % (auto) Anion Gap Estim Creat Clear Calc Estimated GFR POC Glucose 107 141 H 89 Random Glucose Calcium Hep Bs Antigen Hep Bs Antibody Hep B Core Total Ab Blood Type Antibody Screen Crossmatch 12/30/22 12/30/22 12/30/22 05:52 05:52 07:56 MCV 83.6 MCH 24.6 L MCHC 29.4 L RDW 16.2 H Plt Count 164 MPV 10.1 Absolute Nucleated RBC 0.000 Nucleated RBC % (auto) 0.0 Anion Gap 19 Estim Creat Clear Calc 10.4 Estimated GFR 9 POC Glucose 74 Random Glucose 85 Calcium 8.1 L Hep Bs Antigen Hep Bs Antibody Hep B Core Total Ab Blood Type Antibody Screen Crossmatch 12/30/22 12/30/22 08:09 08:09 MCV MCH MCHC RDW Plt Count MPV Absolute Nucleated RBC Nucleated RBC % (auto) Anion Gap Estim Creat Clear Calc Estimated GFR POC Glucose Random Glucose Calcium Hep Bs Antigen Negative Hep Bs Antibody NONREACTIVE Hep B Core Total Ab Nonreactive Blood Type B Positive Antibody Screen NEGATIVE Crossmatch See Detail Microbiology Microbiology Results: Microbiology 12/28/22 Unknown Urine Culture - Final Urine Catheterized - Straight Catheter Escherichia coli 12/27/22 19:26 Blood Culture - Preliminary Blood - Venous No growth after 48 hours. 12/27/22 18:59 Blood Culture - Preliminary Blood - Venous No growth after 48 hours. Assessment and Plan (1) CKD (chronic kidney disease) stage 5, GFR less than 15 ml/min: Status: Acute Plan This is a 67-year-old female with pertinent history of CKD stage 5, congestive heart failure with reduced ejection fraction, insulin-dependent type 2 diabetes mellitus, essential hypertension, mixed hyperlipidemia, chronic opioid use, mood disorder, urinary retention, gastroesophageal reflux disease who was sent to the emergency department for evaluation of dyspnea and altered mentation. Acute hypoxemic respiratory and sepsis secondary to community-acquired pneumonia continue IV Rocephin and azithromycin blood cx negative to date wean oxygen as tolerated Acute on chronic HFrEF likely related to severe renal disease has agreed to HD continue home lasix Acute metabolic encephalopathy secondary to above. resolved GIL on CKD stage 5 with metabolic acidosis Monitor creatinine and urine output.? Nephrology consulted>rec silva cath patient agreeable to HD at this time, temp cath to be placed today, hold plavix with plan to change to catmonday plan for HD today, tomorrow and Monday; outpatient spot at [facility] today c/d sodium bicarb Hypernatremia sodium 149 should improve with HD Chronic Normocytic anemia Secondary to renal disease No overt bleeding noted will transfuse 1 U rbc procrit follow CBC UTI urine culture growing e.coli continue IV ceftraixone, started 12/27 Essential hypertension Continue home diuretics and antihypertensives Elevated troponin likely type 2 in the setting of increased demand/reduced renal clearance lower then previous, no chest pain History of CVA asa, statin hold plavix for monday Insulin-dependent type 2 diabetes mellitus sugar overall on lower side Reduce basal insulin.?Follow POCs, SSI Urinary retension On bethanechol and tamsulosin DVT prophylaxis: Lovenox on hold due to anemia Full code attending - dr. krystle PEREZ [facility] resident, return when medically clear Continue hospitalization for treatment of acute hypoxic respiratory failure secondary to community-acquired pneumonia Time Spent With Patient Time: Total time managing care of this patient today ____ minutes. Quality Stroke Does the patient have a stroke diagnosis?: No VTE Prior VTE?: No VTE Risk Level:: Medical - moderate - high VTE Device Contraindication: Treatment Not Indicated VTE Drug Contraindication: N/A - Med Ordered
[2022-12-30 16:31] LABS: Glucose, Whole Blood 107 mg/dL (60-115)
[2022-12-30] MEDS: guaiFENesin DM 100/10/5 ML 5 ML SYRUP PO (16:55)
[2022-12-30 19:47] LABS: Glucose, Whole Blood 216 mg/dL (60-115)
[2022-12-30] MEDS: Aspirin Enteric Coated 81 MG TABLET.DR PO (20:34)
[2022-12-30] MEDS: traZODone HCL 50 MG TABLET PO (20:35)
[2022-12-30] MEDS: Melatonin 3 MG TABLET PO (20:35)
[2022-12-30] MEDS: carvediloL 6.25 MG TABLET PO (20:36)
[2022-12-30] MEDS: Tamsulosin HCL 0.4 MG CAPSULE 0.8 MG PO (20:37)
[2022-12-30] MEDS: Atorvastatin Calcium 80 MG TABLET PO (20:37)
[2022-12-30] MEDS: Insulin Glargine,Hum.rec.anlog 100 UNIT/ML 10 ML VIAL 10 UNIT SUBCUT (20:40)
[2022-12-30] MEDS: Insulin Lispro 100 UNIT/ML 3 ML VIAL SUBCUT (20:41)
[2022-12-30] MEDS: Azithromycin 500 MG in 0.9 % Sodium Chloride 250 ML 125 MG IV (20:42)
[2022-12-30] MEDS: Benzonatate 100 MG CAPSULE 200 MG PO (21:20)
[2022-12-31] MEDS: guaiFENesin DM 100/10/5 ML 5 ML SYRUP PO ×2 (01:43→11:54)
[2022-12-31 03:03] VITALS: BP 142/65; PULSE 56; RESP 20; TEMP 36.1; O2SAT 100
[2022-12-31 03:09] LABS: Glucose, Whole Blood 150 mg/dL (60-115)
[2022-12-31 06:40] LABS: Hematocrit 29.3 % (37.0-47.0); Mean Corpuscular HGB Conc 30.7 g/dl (31.0-35.0); Mean Corpuscular Hemoglobin 25.8 pg (27.0-33.0); Mean Platelet Volume 10.2 fL (9.4-12.3); Platelet Count 161 X10*3/uL (160-400); Red Blood Count 3.49 X10*6/uL (4.20-5.50); Red Cell Distribution Width 16.2 % (11.0-16.0); White Blood Count 8.8 X10*3/uL (4.8-10.8)
[2022-12-31 06:45] LABS: Anion Gap 13 (12-20); Blood Urea Nitrogen 50 mg/dL (9-16); Calcium 8.3 mg/dL (8.4-10.2); Carbon Dioxide 25 mmol/L (22-29); Chloride 110 mmol/L (96-108); Creatinine Clr Calc Pharmacy 14.1; Estimated Glomerular Filt Rate 12; Glucose Random 146 mg/dL (60-115); Sodium 144 mmol/L (135-145)
[2022-12-31 07:23] VITALS: BP 145/70; PULSE 57; RESP 20; TEMP 36.7; O2SAT 98
[2022-12-31 07:32] LABS: Glucose, Whole Blood 146 mg/dL (60-115)
[2022-12-31] MEDS: Furosemide 40 MG TABLET PO (10:04)
[2022-12-31] MEDS: Bethanechol Chloride 25 MG TABLET PO ×2 (10:04→20:23)
[2022-12-31] MEDS: cefTRIAXone sodium 1 GM in 0.9 % Sodium Chloride 50 ML IV (10:04)
[2022-12-31] MEDS: amLODIPine Besylate 10 MG TABLET PO (10:05)
[2022-12-31] MEDS: Omeprazole 20 MG CAPSULE.DR PO (10:05)
[2022-12-31] MEDS: Nystatin Powder 15 GM BOTTLE 1 APPL TOPICAL (10:05)
--- NOTE | 2022-12-31 10:27 | P.PNIM_ITS ---
Subjective Subjective Date of Service: 12/31/22 Interval History: seen and examined this morning no overnight events pt denies sob, does report cough feeling tired today Review of Systems Review of Systems: Yes all other systems are reviewed and are negative Constitutional Constitutional: Denies chills and Denies fever(s) Cardiovascular Cardiovascular: Denies chest pain and Denies dyspnea Respiratory Respiratory: Reports cough and Denies dyspnea Gastrointestinal Gastrointestinal: Denies abdominal pain Physical Exam Vital Signs: Vital Signs: Last Vital Signs Temp 98.0 F 12/31/22 07:23 Pulse 57 12/31/22 07:23 Resp 20 12/31/22 07:23 BP 145/70 H 12/31/22 07:23 Pulse Ox 98 12/31/22 07:23 O2 Del Method Nasal Cannula 12/31/22 07:23 O2 Flow Rate 3 12/31/22 07:23 Oxygen Flow Rate 4 12/27/22 18:45 BMI result Body Mass Index 36.6 Appearing in no acute distress lung sounds are clear to auscultation heart regular rate rhythm, clear S1, S2 positive bowel sounds, abdomen is soft, nontender neuro patient is alert x3, no focal deficits Objective Data Active Medications Acetaminophen (Acetaminophen 325 Mg Tablet) 650 mg PO Q6H PRN PRN Reason: Pain, Mild (Pain Scale 1-3) Acetaminophen (Acetaminophen Supp 650 Mg Supp.Rect) 650 mg [place] Q6H PRN PRN Reason: Pain, Mild (Pain Scale 1-3) Amlodipine Besylate (Amlodipine Besylate 10 Mg Tablet) 10 mg PO DAILY COUNTS INCLUDE 234 BEDS AT THE [facility]; Protocol Last Admin: 12/31/22 10:05 Dose: 10 mg Documented By: BRITTANY Aspirin (Aspirin Enteric Coated 81 Mg Tablet.Dr) 81 mg PO BEDTIME COUNTS INCLUDE 234 BEDS AT THE [facility] Last Admin: 12/30/22 20:34 Dose: 81 mg Documented By: KASIE Atorvastatin Calcium (Atorvastatin Calcium 80 Mg Tablet) 80 mg PO BEDTIME COUNTS INCLUDE 234 BEDS AT THE [facility] Last Admin: 12/30/22 20:37 Dose: 80 mg Documented By: KASIE Benzonatate (Benzonatate 100 Mg Capsule) 200 mg PO TID PRN PRN Reason: cough Last Admin: 12/30/22 21:20 Dose: 200 mg Documented By: KASIE Bethanechol Chloride (Bethanechol Chloride 25 Mg Tablet) 25 mg PO BID COUNTS INCLUDE 234 BEDS AT THE [facility] Last Admin: 12/31/22 10:04 Dose: 25 mg Documented By: BRITTANY Bisacodyl (Bisacodyl 10 Mg Supp.Rect) 10 mg [place] DAILY PRN PRN Reason: Constipation Carvedilol (Carvedilol 6.25 Mg Tablet) 6.25 mg PO BID COUNTS INCLUDE 234 BEDS AT THE [facility]; Protocol Last Admin: 12/31/22 10:05 Dose: Not Given Documented By: BRITTANY Non-Admin Reason: HR below 60 Clopidogrel Bisulfate (Clopidogrel Bisulfate 75 Mg Tablet) 75 mg PO DAILY COUNTS INCLUDE 234 BEDS AT THE [facility] Last Admin: 12/30/22 07:41 Dose: 75 mg Documented By: JAYSHREE Enoxaparin Sodium (Enoxaparin Sodium 30 Mg/0.3 Ml Syringe) 30 mg SUBCUT Q24H COUNTS INCLUDE 234 BEDS AT THE [facility] Last Admin: 12/27/22 22:58 Dose: 30 mg Documented By: YAMILETH Furosemide (Furosemide 40 Mg Tablet) 40 mg PO DAILY COUNTS INCLUDE 234 BEDS AT THE [facility]; Protocol Last Admin: 12/31/22 10:04 Dose: 40 mg Documented By: BRITTANY Glucose (Glucose Gel 15 Gm Gel..Gram.) 15 gm PO Q15M PRN; Protocol PRN Reason: per Hypoglycemia Standing Ord. Last Admin: 12/28/22 15:09 Dose: 15 gm Documented By: LETICIA Guaifenesin/Dextromethorphan (Guaifenesin Dm 100/10/5 Ml 5 Ml Syrup) 5 ml PO Q6H PRN PRN Reason: Cough Last Admin: 12/31/22 01:43 Dose: 5 ml Documented By: KASIE Heparin Sodium (Porcine) (Heparin Sodium,Porcine 5,000 Unit/Ml Vial) 5,000 unit INTRACATH ONCE ONE Stop: 01/02/23 06:30 Ceftriaxone Sodium 1 gm/ (Sodium Chloride) 50 mls @ 100 mls/hr IV Q24H [facility] Last Admin: 12/31/22 10:04 Dose: 100 mls/hr Documented By: BRITTANY Azithromycin 500 mg/ Sodium (Chloride) 250 mls @ 125 mls/hr IV Q24H COUNTS INCLUDE 234 BEDS AT THE [facility] Last Infusion: 12/30/22 23:25 Dose: 0 mls/hr Documented By: KASIE Dextrose (D10) 250 mls @ 750 mls/hr IV Q15M PRN; Protocol PRN Reason: per Hypoglycemia Standing Ord. Last Infusion: 12/28/22 11:18 Dose: 0 mls/hr Documented By: LETICIA Insulin Glargine (Insulin Glargine,Hum.Rec.Anlog 100 Unit/Ml 10 Ml Vial) 10 unit SUBCUT BEDTIME COUNTS INCLUDE 234 BEDS AT THE [facility] Last Admin: 12/30/22 20:40 Dose: 10 unit Documented By: KASIE Insulin Human Lispro (Insulin Lispro 100 Unit/Ml 3 Ml Vial) 0 unit SUBCUT Q6H COUNTS INCLUDE 234 BEDS AT THE [facility]; Protocol Last Admin: 12/31/22 07:46 Dose: Not Given Documented By: BRITTANY Non-Admin Reason: No Insulin Coverage Melatonin (Melatonin 3 Mg Tablet) 6 mg PO BEDTIME PRN PRN Reason: Insomnia Melatonin (Melatonin 3 Mg Tablet) 3 mg PO BEDTIME COUNTS INCLUDE 234 BEDS AT THE [facility] Last Admin: 12/30/22 20:35 Dose: 3 mg Documented By: KASIE Nystatin (Nystatin Powder 15 Gm Bottle) 1 appl TOPICAL BID COUNTS INCLUDE 234 BEDS AT THE [facility]; Protocol Last Admin: 12/31/22 10:05 Dose: 1 appl Documented By: BRITTANY Omeprazole (Omeprazole 20 Mg Capsule.Dr) 20 mg PO DAILY COUNTS INCLUDE 234 BEDS AT THE [facility] Last Admin: 12/31/22 10:05 Dose: 20 mg Documented By: BRITTANY Ondansetron HCl (Ondansetron Hcl 4 Mg/2 Ml Vial) 4 mg IVPUSH Q8H PRN PRN Reason: Nausea and Vomiting Pharmacy Consult (Consult Rx Perform Med Rec) 1 each MISCELLANE ONCE PRN PRN Reason: Consult order Sodium Biphosphate/Sodium Phosphate (Sodium Phosphate,[place]-Dibasic 133 Ml Enema) 118 ml [place] DAILY PRN PRN Reason: Constipation Sodium Chloride (0.9 % Sodium Chloride Flush 3 Ml Syringe) 3 ml IVFLUSH QSHIFT COUNTS INCLUDE 234 BEDS AT THE [facility] Last Admin: 12/31/22 10:18 Dose: Not Given Documented By: BRITTANY Non-Admin Reason: Previously Administered Tamsulosin HCl (Tamsulosin Hcl 0.4 Mg Capsule) 0.8 mg PO BEDTIME COUNTS INCLUDE 234 BEDS AT THE [facility] Last Admin: 12/30/22 20:37 Dose: 0.8 mg Documented By: KASIE Trazodone HCl (Trazodone Hcl 50 Mg Tablet) 50 mg PO BEDTIME COUNTS INCLUDE 234 BEDS AT THE [facility] Last Admin: 12/30/22 20:35 Dose: 50 mg Documented By: KASIE Labs 12/31/22 06:09 12/31/22 06:09 Labs: Laboratory Results - last 24 hr 12/30/22 12/30/22 12/30/22 08:09 08:09 16:28 MCV MCH MCHC RDW Plt Count MPV Absolute Nucleated RBC Nucleated RBC % (auto) Anion Gap Estim Creat Clear Calc Estimated GFR POC Glucose 107 Random Glucose Calcium Hep Bs Antigen Negative Hep Bs Antibody NONREACTIVE Hep B Core Total Ab Nonreactive Blood Type B Positive Antibody Screen NEGATIVE Crossmatch See Detail 12/30/22 12/31/22 12/31/22 19:43 03:01 06:09 MCV 84.0 MCH 25.8 L MCHC 30.7 L RDW 16.2 H Plt Count 161 MPV 10.2 Absolute Nucleated RBC 0.000 Nucleated RBC % (auto) 0.0 Anion Gap Estim Creat Clear Calc Estimated GFR POC Glucose 216 H 150 H Random Glucose Calcium Hep Bs Antigen Hep Bs Antibody Hep B Core Total Ab Blood Type Antibody Screen Crossmatch 12/31/22 12/31/22 06:09 07:19 MCV MCH MCHC RDW Plt Count MPV Absolute Nucleated RBC Nucleated RBC % (auto) Anion Gap 13 Estim Creat Clear Calc 14.1 Estimated GFR 12 POC Glucose 146 H Random Glucose 146 H Calcium 8.3 L Hep Bs Antigen Hep Bs Antibody Hep B Core Total Ab Blood Type Antibody Screen Crossmatch Microbiology Microbiology Results: Microbiology 12/28/22 Unknown Urine Culture - Final Urine Catheterized - Straight Catheter Escherichia coli Assessment and Plan (1) CKD (chronic kidney disease) stage 5, GFR less than 15 ml/min: Status: Acute Plan This is a 67-year-old female with pertinent history of CKD stage 5, congestive heart failure with reduced ejection fraction, insulin-dependent type 2 diabetes mellitus, essential hypertension, mixed hyperlipidemia, chronic opioid use, mood disorder, urinary retention, gastroesophageal reflux disease who was sent to the emergency department for evaluation of dyspnea and altered mentation. GIL on CKD stage 5 with metabolic acidosis Monitor creatinine and urine output.? Nephrology consulted>rec silva cath new to HD, temp cath to be placed, change to catmonday plan for HD today, tomorrow and Monday; outpatient spot [facility] procrit Acute hypoxemic respiratory and sepsis secondary to community-acquired pneumonia continue IV Rocephin and azithromycin blood cx negative to date wean oxygen as tolerated Acute on chronic HFrEF likely related to severe renal disease has agreed to HD continue home lasix Acute metabolic encephalopathy secondary to above. resolved Hypernatremia sodium 149 should improve with HD Chronic Normocytic anemia Secondary to renal disease No overt bleeding noted will transfuse 1 U rbc procrit follow CBC UTI urine culture growing e.coli continue IV ceftraixone, started 12/27 Essential hypertension Continue home diuretics and antihypertensives Elevated troponin likely type 2 in the setting of increased demand/reduced renal clearance lower then previous, no chest pain History of CVA asa, statin hold plavix for monday Insulin-dependent type 2 diabetes mellitus sugar overall on lower side Reduce basal insulin.?Follow POCs, SSI Urinary retension On bethanechol and tamsulosin DVT prophylaxis: Lovenox on hold due to anemia Full code attending - dr. Lalito PEREZ LTC resident, return when medically clear Continue hospitalization for treatment of acute hypoxic respiratory failure secondary to community-acquired pneumonia Time Spent With Patient Time: Total time managing care of this patient today ____ minutes. Quality Stroke Does the patient have a stroke diagnosis?: No VTE Prior VTE?: No VTE Risk Level:: Medical - moderate - high VTE Device Contraindication: Treatment Not Indicated VTE Drug Contraindication: N/A - Med Ordered
[2022-12-31 11:15] LABS: Glucose, Whole Blood 135 mg/dL (60-115)
--- NOTE | 2022-12-31 14:54 | P.PNNP_ITS ---
Subjective Subjective Date of Service: 12/31/22 Interval history: seen and examined this morning; no overnight events; feeling tired Physical Exam Vital Signs: Vital Signs: Last Vital Signs Temp 98.0 F 12/31/22 07:23 Pulse 57 12/31/22 07:23 Resp 20 12/31/22 07:23 BP 145/70 H 12/31/22 07:23 Pulse Ox 98 12/31/22 07:23 O2 Del Method Nasal Cannula 12/31/22 07:23 O2 Flow Rate 3 12/31/22 07:23 Oxygen Flow Rate 4 12/27/22 18:45 BMI result Body Mass Index 36.6 Const: General: no acute distress Orientation/consciousness: patient oriented x3 Eyes: EOM: EOMs intact bilaterally Resp: Auscultation: diminished lung sounds Cardio: Rate: regular rate GI: Palpation (GI): Soft to palpation Neuro: General: patient oriented x3 Objective Data Labs 12/31/22 06:09 12/31/22 06:09 Labs: Laboratory Results - last 24 hr 12/30/22 12/30/22 12/31/22 16:28 19:43 03:01 WBC RBC Hgb Hct MCV MCH MCHC RDW Plt Count MPV Absolute Nucleated RBC Nucleated RBC % (auto) Sodium Potassium Chloride Carbon Dioxide Anion Gap BUN Creatinine Estim Creat Clear Calc Estimated GFR POC Glucose 107 216 H 150 H Random Glucose Calcium 12/31/22 12/31/22 12/31/22 06:09 06:09 07:19 WBC 8.8 RBC 3.49 L Hgb 9.0 L D Hct 29.3 L MCV 84.0 MCH 25.8 L MCHC 30.7 L RDW 16.2 H Plt Count 161 MPV 10.2 Absolute Nucleated RBC 0.000 Nucleated RBC % (auto) 0.0 Sodium 144 Potassium 4.0 Chloride 110 H Carbon Dioxide 25 Anion Gap 13 BUN 50 H Creatinine 3.63 H Estim Creat Clear Calc 14.1 Estimated GFR 12 POC Glucose 146 H Random Glucose 146 H Calcium 8.3 L 12/31/22 11:07 WBC RBC Hgb Hct MCV MCH MCHC RDW Plt Count MPV Absolute Nucleated RBC Nucleated RBC % (auto) Sodium Potassium Chloride Carbon Dioxide Anion Gap BUN Creatinine Estim Creat Clear Calc Estimated GFR POC Glucose 135 H Random Glucose Calcium Microbiology Microbiology Results: Microbiology 12/28/22 Unknown Urine Catheterized - Straight Catheter Urine Culture - Final Escherichia coli 12/27/22 19:26 Blood - Venous Blood Culture - Preliminary No growth after 48 hours. 12/27/22 18:59 Blood - Venous Blood Culture - Preliminary No growth after 48 hours. Procedures Date of Service Date of Service: 12/31/22 Assessment & Plan Assessment and plan (1) Acute on chronic renal failure: Status: Acute Assessment and Plan: 67-year-old woman with a history of advanced renal failure approaching ESRD ? IR did temporary HD catheter yesterday. Had HD yesterday, due today and Monday ( ordered) Needs Permcath after weekend. Outpt HD spot arranged in [facility] 1? Procrit [id number] Units one time given yesterday Time Spent With Patient Time: . Progress Note: Quality Stroke Does the patient have a stroke diagnosis?: No
[2022-12-31 16:24] VITALS: BP 156/67; PULSE 65; RESP 20; TEMP 36.7; O2SAT 96
[2022-12-31 19:10] VITALS: BP 140/57; PULSE 78; RESP 20; TEMP 37.1; O2SAT 98
[2022-12-31 19:40] LABS: Glucose, Whole Blood 138 mg/dL (60-115)
[2022-12-31] MEDS: Atorvastatin Calcium 80 MG TABLET PO (20:23)
[2022-12-31] MEDS: traZODone HCL 50 MG TABLET PO (20:23)
[2022-12-31] MEDS: Tamsulosin HCL 0.4 MG CAPSULE 0.8 MG PO (20:23)
[2022-12-31] MEDS: Aspirin Enteric Coated 81 MG TABLET.DR PO (20:23)
[2022-12-31] MEDS: 0.9 % Sodium Chloride Flush 3 ML SYRINGE IVFLUSH (20:24)
[2022-12-31] MEDS: Melatonin 3 MG TABLET PO (20:24)
[2022-12-31] MEDS: Insulin Glargine,Hum.rec.anlog 100 UNIT/ML 10 ML VIAL 10 UNIT SUBCUT (20:28)
[2022-12-31] MEDS: Azithromycin 500 MG in 0.9 % Sodium Chloride 250 ML 125 MG IV (20:34)
[2022-12-31] MEDS: Benzonatate 100 MG CAPSULE 200 MG PO (23:08)
[2023-01-01] MEDS: Nystatin Powder 15 GM BOTTLE 1 APPL TOPICAL ×3 (03:00→20:55)
[2023-01-01 03:07] LABS: Glucose, Whole Blood 145 mg/dL (60-115)
[2023-01-01 03:15] VITALS: BP 143/60; PULSE 63; RESP 20; TEMP 36; O2SAT 98
[2023-01-01 07:15] LABS: Anion Gap 12 (12-20); Blood Urea Nitrogen 31 mg/dL (9-16); Calcium 8.2 mg/dL (8.4-10.2); Carbon Dioxide 23 mmol/L (22-29); Chloride 109 mmol/L (96-108); Creatinine Clr Calc Pharmacy 16.6; Estimated Glomerular Filt Rate 15; Glucose Random 131 mg/dL (60-115); Potassium 3.4 mmol/L (3.3-5.1); Sodium 141 mmol/L (135-145)
[2023-01-01 07:37] VITALS: BP 159/68; PULSE 68; RESP 17; TEMP 36.4; O2SAT 98
[2023-01-01 08:57] LABS: Glucose, Whole Blood 134 mg/dL (60-115)
[2023-01-01] MEDS: amLODIPine Besylate 10 MG TABLET PO (09:36)
[2023-01-01] MEDS: Omeprazole 20 MG CAPSULE.DR PO (09:36)
[2023-01-01] MEDS: carvediloL 6.25 MG TABLET PO ×2 (09:36→20:43)
[2023-01-01] MEDS: Bethanechol Chloride 25 MG TABLET PO ×2 (09:37→20:43)
[2023-01-01] MEDS: 0.9 % Sodium Chloride Flush 3 ML SYRINGE IVFLUSH ×2 (09:37→20:44)
[2023-01-01] MEDS: Furosemide 40 MG TABLET PO (09:37)
[2023-01-01] MEDS: cefTRIAXone sodium 1 GM in 0.9 % Sodium Chloride 50 ML IV (09:37)
--- NOTE | 2023-01-01 10:04 | P.PNIM_ITS ---
Subjective Subjective Date of Service: 01/01/23 Interval History: seen and examined this morning no overnight events pt denies sob, does report cough feeling tired today Review of Systems Review of Systems: Yes all other systems are reviewed and are negative Constitutional Constitutional: Denies chills and Denies fever(s) Cardiovascular Cardiovascular: Denies chest pain and Denies dyspnea Respiratory Respiratory: Reports cough and Denies dyspnea Gastrointestinal Gastrointestinal: Denies abdominal pain Physical Exam Vital Signs: Vital Signs: Last Vital Signs Temp 97.6 F 01/01/23 07:37 Pulse 68 01/01/23 07:37 Resp 17 01/01/23 07:37 BP 159/68 H 01/01/23 07:37 Pulse Ox 98 01/01/23 07:37 O2 Del Method Nasal Cannula 01/01/23 07:37 O2 Flow Rate 2 01/01/23 07:37 Oxygen Flow Rate 4 12/27/22 18:45 BMI result Body Mass Index 36.6 Appearing in no acute distress lung sounds coarse heart regular rate rhythm, clear S1, S2 positive bowel sounds, abdomen is soft, nontender neuro patient is alert x3, no focal deficits Objective Data Active Medications Acetaminophen (Acetaminophen 325 Mg Tablet) 650 mg PO Q6H PRN PRN Reason: Pain, Mild (Pain Scale 1-3) Acetaminophen (Acetaminophen Supp 650 Mg Supp.Rect) 650 mg RI Q6H PRN PRN Reason: Pain, Mild (Pain Scale 1-3) Amlodipine Besylate (Amlodipine Besylate 10 Mg Tablet) 10 mg PO DAILY [facility]; Protocol Last Admin: 01/01/23 09:36 Dose: 10 mg Documented By: BRITTANY Aspirin (Aspirin Enteric Coated 81 Mg Tablet.) 81 mg PO BEDTIME [facility] Last Admin: 12/31/22 20:23 Dose: 81 mg Documented By: COSME-LINDSAY Atorvastatin Calcium (Atorvastatin Calcium 80 Mg Tablet) 80 mg PO BEDTIME [facility] Last Admin: 12/31/22 20:23 Dose: 80 mg Documented By: KASIE Benzonatate (Benzonatate 100 Mg Capsule) 200 mg PO TID PRN PRN Reason: cough Last Admin: 12/31/22 23:08 Dose: 200 mg Documented By: KASIE Bethanechol Chloride (Bethanechol Chloride 25 Mg Tablet) 25 mg PO BID [facility] Last Admin: 01/01/23 09:37 Dose: 25 mg Documented By: BRITTANY Bisacodyl (Bisacodyl 10 Mg Supp.Rect) 10 mg RI DAILY PRN PRN Reason: Constipation Carvedilol (Carvedilol 6.25 Mg Tablet) 6.25 mg PO BID [facility]; Protocol Last Admin: 01/01/23 09:36 Dose: 6.25 mg Documented By: BRITTANY Clopidogrel Bisulfate (Clopidogrel Bisulfate 75 Mg Tablet) 75 mg PO DAILY [facility] Last Admin: 12/30/22 07:41 Dose: 75 mg Documented By: JAYSHREE Enoxaparin Sodium (Enoxaparin Sodium 30 Mg/0.3 Ml Syringe) 30 mg SUBCUT Q24H [facility] Last Admin: 12/27/22 22:58 Dose: 30 mg Documented By: YAMILETH Furosemide (Furosemide 40 Mg Tablet) 40 mg PO DAILY [facility]; Protocol Last Admin: 01/01/23 09:37 Dose: 40 mg Documented By: BRITTANY Glucose (Glucose Gel 15 Gm Gel..Gram.) 15 gm PO Q15M PRN; Protocol PRN Reason: per Hypoglycemia Standing Ord. Last Admin: 12/28/22 15:09 Dose: 15 gm Documented By: ALEKSANDERDENEfe Guaifenesin/Dextromethorphan (Guaifenesin Dm 100/10/5 Ml 5 Ml Syrup) 5 ml PO Q6H PRN PRN Reason: Cough Last Admin: 12/31/22 11:54 Dose: 5 ml Documented By: BRITTANY Heparin Sodium (Porcine) (Heparin Sodium,Porcine 5,000 Unit/Ml Vial) 5,000 unit INTRACATH ONCE ONE Stop: 01/02/23 06:30 Ceftriaxone Sodium 1 gm/ (Sodium Chloride) 50 mls @ 100 mls/hr IV Q24H [facility] Last Admin: 01/01/23 09:37 Dose: 100 mls/hr Documented By: BRITTANY Azithromycin 500 mg/ Sodium (Chloride) 250 mls @ 125 mls/hr IV Q24H [facility] Last Infusion: 12/31/22 23:31 Dose: 0 mls/hr Documented By: COSME-LADBENJA Dextrose (D10) 250 mls @ 750 mls/hr IV Q15M PRN; Protocol PRN Reason: per Hypoglycemia Standing Ord. Last Infusion: 12/28/22 11:18 Dose: 0 mls/hr Documented By: ALEKSANDERDENEfe Insulin Glargine (Insulin Glargine,Hum.Rec.Anlog 100 Unit/Ml 10 Ml Vial) 10 unit SUBCUT BEDTIME [facility] Last Admin: 12/31/22 20:28 Dose: 10 unit Documented By: KASIE Melatonin (Melatonin 3 Mg Tablet) 6 mg PO BEDTIME PRN PRN Reason: Insomnia Melatonin (Melatonin 3 Mg Tablet) 3 mg PO BEDTIME [facility] Last Admin: 12/31/22 20:24 Dose: 3 mg Documented By: KASIE Nystatin (Nystatin Powder 15 Gm Bottle) 1 appl TOPICAL BID [facility]; Protocol Last Admin: 01/01/23 09:42 Dose: 1 appl Documented By: BRITTANY Omeprazole (Omeprazole 20 Mg Capsule.Dr) 20 mg PO DAILY [facility] Last Admin: 01/01/23 09:36 Dose: 20 mg Documented By: BRITTANY Ondansetron HCl (Ondansetron Hcl 4 Mg/2 Ml Vial) 4 mg IVPUSH Q8H PRN PRN Reason: Nausea and Vomiting Pharmacy Consult (Consult Rx Perform Med Rec) 1 each MISCELLANE ONCE PRN PRN Reason: Consult order Sodium Biphosphate/Sodium Phosphate (Sodium Phosphate,[place]-Dibasic 133 Ml Enema) 118 ml RI DAILY PRN PRN Reason: Constipation Sodium Chloride (0.9 % Sodium Chloride Flush 3 Ml Syringe) 3 ml IVFLUSH QSHIFT [facility] Last Admin: 01/01/23 09:37 Dose: 3 ml Documented By: BRITTANY Tamsulosin HCl (Tamsulosin Hcl 0.4 Mg Capsule) 0.8 mg PO BEDTIME [facility] Last Admin: 12/31/22 20:23 Dose: 0.8 mg Documented By: KASIE Trazodone HCl (Trazodone Hcl 50 Mg Tablet) 50 mg PO BEDTIME [facility] Last Admin: 12/31/22 20:23 Dose: 50 mg Documented By: KASIE Labs 12/31/22 06:09 01/01/23 06:17 Labs: Laboratory Results - last 24 hr 12/31/22 12/31/22 01/01/23 11:07 19:34 03:00 Anion Gap Estim Creat Clear Calc Estimated GFR POC Glucose 135 H 138 H 145 H Random Glucose Calcium 01/01/23 01/01/23 06:17 08:53 Anion Gap 12 Estim Creat Clear Calc 16.6 Estimated GFR 15 POC Glucose 134 H Random Glucose 131 H Calcium 8.2 L Assessment and Plan (1) CKD (chronic kidney disease) stage 5, GFR less than 15 ml/min: Status: Acute Plan This is a 67-year-old female with pertinent history of CKD stage 5, congestive heart failure with reduced ejection fraction, insulin-dependent type 2 diabetes mellitus, essential hypertension, mixed hyperlipidemia, chronic opioid use, mood disorder, urinary retention, gastroesophageal reflux disease who was sent to the emergency department for evaluation of dyspnea and altered mentation. GIL on CKD stage 5 with metabolic acidosis Monitor creatinine and urine output.? Nephrology consulted>rec silva cath new to HD, temp cath to be placed, change to [facility] Monday outpatient spot at [facility]rit Acute hypoxemic respiratory and sepsis secondary to community-acquired pneumonia continue IV Rocephin and azithromycin blood cx negative to date wean oxygen as tolerated repeat CXR Acute on chronic HFrEF likely related to severe renal disease continue home lasix Acute metabolic encephalopathy secondary to above. resolved Hypernatremia. Resolved Chronic Normocytic anemia Secondary to renal disease No overt bleeding noted will transfuse 1 U rbc procrit follow CBC UTI urine culture growing e.coli continue IV ceftraixone, started 12/27 Essential hypertension Continue home diuretics and antihypertensives Elevated troponin likely type 2 in the setting of increased demand/reduced renal clearance lower then previous, no chest pain History of CVA asa, statin hold plavix for monday Insulin-dependent type 2 diabetes mellitus sugar overall on lower side Reduce basal insulin.?Follow POCs, SSI Urinary retension On bethanechol and tamsulosin DVT prophylaxis: Lovenox on hold due to anemia Full code attending - dr. Stareky Continue hospitalization for treatment of acute hypoxic respiratory failure secondary to community-acquired pneumonia Time Spent With Patient Time: Total time managing care of this patient today ____ minutes. Quality Stroke Does the patient have a stroke diagnosis?: No VTE Prior VTE?: No VTE Risk Level:: Medical - moderate - high VTE Device Contraindication: Treatment Not Indicated VTE Drug Contraindication: N/A - Med Ordered
--- NOTE | 2023-01-01 10:57 | PM.PNNEP ---
Subjective Subjective Date of Service: 01/01/23 Interval history: seen and examined this morning; no overnight events; feeling tired today Physical Exam Vital Signs: Vital Signs: Last Vital Signs Temp 97.6 F 01/01/23 07:37 Pulse 68 01/01/23 07:37 Resp 17 01/01/23 07:37 BP 159/68 H 01/01/23 07:37 Pulse Ox 98 01/01/23 07:37 O2 Del Method Nasal Cannula 01/01/23 07:37 O2 Flow Rate 2 01/01/23 07:37 Oxygen Flow Rate 4 12/27/22 18:45 BMI result Body Mass Index 36.6 Const: General: no acute distress Orientation/consciousness: patient oriented x3 HEENT: Head: Yes normocephalic Eyes: EOM: EOMs intact bilaterally Resp: Auscultation: diminished lung sounds Cardio: Rate: regular rate GI: Palpation (GI): Soft to palpation Neuro: General: patient oriented x3 Objective Data Labs 12/31/22 06:09 01/01/23 06:17 Labs: Laboratory Results - last 24 hr 12/31/22 12/31/22 01/01/23 11:07 19:34 03:00 Sodium Potassium Chloride Carbon Dioxide Anion Gap BUN Creatinine Estim Creat Clear Calc Estimated GFR POC Glucose 135 H 138 H 145 H Random Glucose Calcium 01/01/23 01/01/23 06:17 08:53 Sodium 141 Potassium 3.4 Chloride 109 H Carbon Dioxide 23 Anion Gap 12 BUN 31 H Creatinine 3.10 H Estim Creat Clear Calc 16.6 Estimated GFR 15 POC Glucose 134 H Random Glucose 131 H Calcium 8.2 L Microbiology Microbiology Results: Microbiology 12/28/22 Unknown Urine Catheterized - Straight Catheter Urine Culture - Final Escherichia coli 12/27/22 19:26 Blood - Venous Blood Culture - Preliminary No growth after 48 hours. 12/27/22 18:59 Blood - Venous Blood Culture - Preliminary No growth after 48 hours. Procedures Date of Service Date of Service: 01/01/23 Assessment & Plan Assessment and plan (1) Acute on chronic renal failure: Status: Acute Plan 67-year-old woman with a history of advanced renal failure approaching ESRD ? IR did temporary HD catheter . Had 2 HD treatments; Due? Monday ( ordered) Needs Permcath after weekend. Outpt HD spot arranged in [place] MWF 1? [place] [id number] Units one time given Progress Note: Quality Stroke Does the patient have a stroke diagnosis?: No
[2023-01-01 14:38] LABS: Glucose, Whole Blood 190 mg/dL (60-115)
[2023-01-01 15:38] VITALS: BP 128/68; PULSE 63; RESP 15; TEMP 36.2; O2SAT 96
[2023-01-01 19:26] VITALS: BP 138/70; PULSE 66; RESP 14; TEMP 36.2; O2SAT 95
[2023-01-01] MEDS: Melatonin 3 MG TABLET PO (20:43)
[2023-01-01] MEDS: traZODone HCL 50 MG TABLET PO (20:43)
[2023-01-01] MEDS: Aspirin Enteric Coated 81 MG TABLET.DR PO (20:43)
[2023-01-01] MEDS: Tamsulosin HCL 0.4 MG CAPSULE 0.8 MG PO (20:43)
[2023-01-01] MEDS: Atorvastatin Calcium 80 MG TABLET PO (20:43)
[2023-01-01] MEDS: Benzonatate 100 MG CAPSULE 200 MG PO (20:44)
[2023-01-01] MEDS: Insulin Glargine,Hum.rec.anlog 100 UNIT/ML 10 ML VIAL 10 UNIT SUBCUT (20:44)
[2023-01-01] MEDS: Azithromycin 500 MG in 0.9 % Sodium Chloride 250 ML 125 MG IV (20:53)
[2023-01-01 21:54] LABS: Glucose, Whole Blood 226 mg/dL (60-115)
[2023-01-01 23:12] VITALS: BP 128/51; PULSE 58; RESP 14; TEMP 36.1; O2SAT 92
[2023-01-01] MEDS: guaiFENesin DM 100/10/5 ML 5 ML SYRUP PO (23:17)
[2023-01-02] VITALS (7 sets, daily range): BP systolic 134–170; BP diastolic 60–73; PULSE 59–71; RESP 14–20; TEMP 36–36.8; O2SAT 90–95
--- NOTE | 2023-01-02 07:57 | P.PNIM_ITS ---
Subjective Subjective Date of Service: 01/02/23 <Maria Luisa Matos NP - Last Filed: 01/02/23 08:03> 01/09/23 <Constantino Feliz MD - Last Filed: 01/09/23 09:16> Interval History: seen and examined this morning no overnight events pt denies sob, does report cough feeling tired today, but seems to be chronic <Maria Luisa Matos NP - Last Filed: 01/02/23 08:03> Review of Systems Review of Systems: Yes all other systems are reviewed and are negative <Maria Luisa Matos NP - Last Filed: 01/02/23 08:03> Constitutional Constitutional: Denies chills and Denies fever(s) <Maria Luisa Matos NP - Last Filed: 01/02/23 08:03> Cardiovascular Cardiovascular: Denies chest pain and Denies dyspnea <Maria Luisa Matos NP - Last Filed: 01/02/23 08:03> Respiratory Respiratory: Reports cough and Denies dyspnea <Maria Luisa Matos NP - Last Filed: 01/02/23 08:03> Gastrointestinal Gastrointestinal: Denies abdominal pain <Maria Luisa Matos NP - Last Filed: 01/02/23 08:03> Physical Exam Vital Signs: Vital Signs: Last Vital Signs Temp 96.8 F 01/02/23 02:30 Pulse 59 01/02/23 02:30 Resp 14 01/02/23 02:30 BP 134/61 01/02/23 02:30 Pulse Ox 90 L 01/02/23 02:30 O2 Del Method Room Air 01/02/23 02:30 O2 Flow Rate 2 01/01/23 23:12 Oxygen Flow Rate 4 12/27/22 18:45 BMI result Body Mass Index 36.6 <Maria Luisa Matos NP - Last Filed: 01/02/23 08:03> Appearing in no acute distress lung sounds are clear to auscultation heart regular rate rhythm, clear S1, S2 positive bowel sounds, abdomen is soft, nontender neuro patient is alert x3, no focal deficits <Maria Luisa Matos NP - Last Filed: 01/02/23 08:03> Objective Data Active Medications Acetaminophen (Acetaminophen 325 Mg Tablet) 650 mg PO Q6H PRN PRN Reason: Pain, Mild (Pain Scale 1-3) Acetaminophen (Acetaminophen Supp 650 Mg Supp.Rect) 650 mg UT Q6H PRN PRN Reason: Pain, Mild (Pain Scale 1-3) Amlodipine Besylate (Amlodipine Besylate 10 Mg Tablet) 10 mg PO DAILY [facility]; Protocol Last Admin: 01/01/23 09:36 Dose: 10 mg Documented By: BRITTANY Aspirin (Aspirin Enteric Coated 81 Mg Tablet.Dr) 81 mg PO BEDTIME [facility] Last Admin: 01/01/23 20:43 Dose: 81 mg Documented By: KASIE Atorvastatin Calcium (Atorvastatin Calcium 80 Mg Tablet) 80 mg PO BEDTIME [facility] Last Admin: 01/01/23 20:43 Dose: 80 mg Documented By: KASIE Benzonatate (Benzonatate 100 Mg Capsule) 200 mg PO TID PRN PRN Reason: cough Last Admin: 01/01/23 20:44 Dose: 200 mg Documented By: KASIE Bethanechol Chloride (Bethanechol Chloride 25 Mg Tablet) 25 mg PO BID [facility] Last Admin: 01/01/23 20:43 Dose: 25 mg Documented By: KASIE Bisacodyl (Bisacodyl 10 Mg Supp.Rect) 10 mg UT DAILY PRN PRN Reason: Constipation Carvedilol (Carvedilol 6.25 Mg Tablet) 6.25 mg PO BID [facility]; Protocol Last Admin: 01/01/23 20:43 Dose: 6.25 mg Documented By: KASIE Clopidogrel Bisulfate (Clopidogrel Bisulfate 75 Mg Tablet) 75 mg PO DAILY [facility] Last Admin: 12/30/22 07:41 Dose: 75 mg Documented By: JAYSHREE Enoxaparin Sodium (Enoxaparin Sodium 30 Mg/0.3 Ml Syringe) 30 mg SUBCUT Q24H [facility] Last Admin: 12/27/22 22:58 Dose: 30 mg Documented By: YAMILETH Furosemide (Furosemide 40 Mg Tablet) 40 mg PO DAILY [facility]; Protocol Last Admin: 01/01/23 09:37 Dose: 40 mg Documented By: BRITTANY Glucose (Glucose Gel 15 Gm Gel..Gram.) 15 gm PO Q15M PRN; Protocol PRN Reason: per Hypoglycemia Standing Ord. Last Admin: 12/28/22 15:09 Dose: 15 gm Documented By: ALEKSANDERDENEfe Guaifenesin/Dextromethorphan (Guaifenesin Dm 100/10/5 Ml 5 Ml Syrup) 5 ml PO Q6H PRN PRN Reason: Cough Last Admin: 01/01/23 23:17 Dose: 5 ml Documented By: KASIE Ceftriaxone Sodium 1 gm/ (Sodium Chloride) 50 mls @ 100 mls/hr IV Q24H [facility] Last Infusion: 01/01/23 10:18 Dose: 0 mls/hr Documented By: BRITTANY Azithromycin 500 mg/ Sodium (Chloride) 250 mls @ 125 mls/hr IV Q24H [facility] Last Infusion: 01/02/23 01:25 Dose: 0 mls/hr Documented By: KASIE Dextrose (D10) 250 mls @ 750 mls/hr IV Q15M PRN; Protocol PRN Reason: per Hypoglycemia Standing Ord. Last Infusion: 12/28/22 11:18 Dose: 0 mls/hr Documented By: ALEKSANDERDENEfe Insulin Glargine (Insulin Glargine,Hum.Rec.Anlog 100 Unit/Ml 10 Ml Vial) 10 unit SUBCUT BEDTIME [facility] Last Admin: 01/01/23 20:44 Dose: 10 unit Documented By: KASIE Melatonin (Melatonin 3 Mg Tablet) 6 mg PO BEDTIME PRN PRN Reason: Insomnia Melatonin (Melatonin 3 Mg Tablet) 3 mg PO BEDTIME [facility] Last Admin: 01/01/23 20:43 Dose: 3 mg Documented By: KASIE Nystatin (Nystatin Powder 15 Gm Bottle) 1 appl TOPICAL BID [facility]; Protocol Last Admin: 01/01/23 20:55 Dose: 1 appl Documented By: KASIE Omeprazole (Omeprazole 20 Mg Capsule.) 20 mg PO DAILY [facility] Last Admin: 01/01/23 09:36 Dose: 20 mg Documented By: BRITTANY Ondansetron HCl (Ondansetron Hcl 4 Mg/2 Ml Vial) 4 mg IVPUSH Q8H PRN PRN Reason: Nausea and Vomiting Pharmacy Consult (Consult Rx Perform Med Rec) 1 each MISCELLANE ONCE PRN PRN Reason: Consult order Sodium Biphosphate/Sodium Phosphate (Sodium Phosphate,[place]-Dibasic 133 Ml Enema) 118 ml UT DAILY PRN PRN Reason: Constipation Sodium Chloride (0.9 % Sodium Chloride Flush 3 Ml Syringe) 3 ml IVFLUSH QSHIFT [facility] Last Admin: 01/01/23 20:44 Dose: 3 ml Documented By: KASIE Tamsulosin HCl (Tamsulosin Hcl 0.4 Mg Capsule) 0.8 mg PO BEDTIME [facility] Last Admin: 01/01/23 20:43 Dose: 0.8 mg Documented By: KASIE Trazodone HCl (Trazodone Hcl 50 Mg Tablet) 50 mg PO BEDTIME [facility] Last Admin: 01/01/23 20:43 Dose: 50 mg Documented By: KASIE <Maria Luisa Matos NP - Last Filed: 01/02/23 08:03> Labs CBC & Chem 7: 12/31/22 06:09 01/01/23 06:17 <Maria Luisa Matos NP - Last Filed: 01/02/23 08:03> Labs: Laboratory Results - last 24 hr 01/01/23 01/01/23 01/01/23 08:53 14:35 21:49 POC Glucose 134 H 190 H 226 H <Maria Luisa Matos NP - Last Filed: 01/02/23 08:03> Microbiology Microbiology Results: Microbiology 12/27/22 19:26 Blood Culture - Final Blood - Venous No growth after 5 days. 12/27/22 18:59 Blood Culture - Final Blood - Venous No growth after 5 days. <Maria Luisa Matos NP - Last Filed: 01/02/23 08:03> Assessment and Plan (1) CKD (chronic kidney disease) stage 5, GFR less than 15 ml/min: Status: Acute <Maria Luisa Matos NP - Last Filed: 01/02/23 08:03> Assessment and Plan: This is a 67-year-old female with pertinent history of CKD stage 5, congestive heart failure with reduced ejection fraction, insulin-dependent type 2 diabetes mellitus, essential hypertension, mixed hyperlipidemia, chronic opio id use, mood disorder, urinary retention, gastroesophageal reflux disease who was sent to the emergency department for evaluation of dyspnea and altered mentation. GIL on CKD stage 5 with metabolic acidosis Monitor creatinine and urine output.? new to HD, temp cath to be placed, change to [facility] Monday outpatient spot at [facility] dc f/c Acute hypoxemic respiratory and sepsis secondary to community-acquired pneumonia continue IV Rocephin and azithromycin blood cx negative to date wean oxygen as tolerated Chest CT pending to re-assess for pna vs effusion Acute on chronic HFrEF likely related to severe renal disease continue home lasix Acute metabolic encephalopathy secondary to above. resolved Hypernatremia. Resolved Chronic Normocytic anemia Secondary to renal disease No overt bleeding noted will transfuse 1 U rbc procrit follow CBC ecoli UTI urine culture growing e.coli s/p IV Rocephin, completed 7 days Essential hypertension Continue home diuretics and antihypertensives Elevated troponin likely type 2 in the setting of increased demand/reduced renal clearance lower then previous, no chest pain History of CVA asa, statin hold plavix for permcatmonday Insulin-dependent type 2 diabetes mellitus sugar overall on lower side Reduce basal insulin.?Follow POCs, SSI Urinary retension On bethanechol and tamsulosin DISPO back to LTC when medically clear DVT prophylaxis: Lovenox on hold due to anemia Full code attending - dr. Feliz Continue hospitalization for treatment of acute hypoxic respiratory failure secondary to community-acquired pneumonia <Maria Luisa Matos NP - Last Filed: 01/02/23 08:03> Time Spent With Patient Time: Total time managing care of this patient today ____ minutes. <Maria Luisa Matos NP - Last Filed: 01/02/23 08:03> Quality Stroke Does the patient have a stroke diagnosis?: No <Maria Luisa Matos NP - Last Filed: 01/02/23 08:03> VTE Prior VTE?: No <Maria Luisa Matos NP - Last Filed: 01/02/23 08:03> VTE Risk Level:: Medical - moderate - high <Maria Luisa Matos NP - Last Filed: 01/02/23 08:03> VTE Device Contraindication: Treatment Not Indicated <ANIBAL Poon Last Filed: 01/02/23 08:03> VTE Drug Contraindication: N/A - Med Ordered <Maria Luisa Matos NP - Last Filed: 01/02/23 08:03>
[2023-01-02 08:05] LABS: Glucose, Whole Blood 164 mg/dL (60-115)
--- NOTE | 2023-01-02 10:35 | MHC.CM.PN ---
Patient has not yet been medically cleared for dc (Respiratory Failure secondary to PNA); returning to [facility] with new HD appears to be the tentative plan and CM will continue to follow.
--- NOTE | 2023-01-02 13:36 | MHC.CLN ---
F/U PT WITH INCREASED NUTRITION RISK R/T PRESSURE INJURY PO INTAKE 75% X2 MEALS DIET RX: 2000DM-APPROPRIATE RECOMMEND ADDING ENSURE BID TO INCREASE KCALS AND PROMOTE WOUND HEALING SUPP TO PROVIDE 700KCLAS, 40G PROTEIN MONITOR PO INTAKE CLOSELY
[2023-01-02] MEDS: Omeprazole 20 MG CAPSULE.DR PO (14:13)
[2023-01-02] MEDS: amLODIPine Besylate 10 MG TABLET PO (14:13)
[2023-01-02] MEDS: Furosemide 40 MG TABLET PO (14:14)
[2023-01-02] MEDS: guaiFENesin LA 600 MG TAB.ER.12H PO ×2 (14:14→20:43)
[2023-01-02] MEDS: Heparin Sodium,Porcine 5,000 UNIT/ML VIAL 5000 UNIT INTRACATH (14:14)
[2023-01-02] MEDS: carvediloL 6.25 MG TABLET PO ×2 (14:14→20:43)
[2023-01-02] MEDS: Bethanechol Chloride 25 MG TABLET PO ×2 (14:14→20:43)
[2023-01-02] MEDS: 0.9 % Sodium Chloride Flush 3 ML SYRINGE IVFLUSH ×3 (14:15→20:43)
[2023-01-02] MEDS: cefTRIAXone sodium 1 GM in 0.9 % Sodium Chloride 50 ML IV (14:15)
[2023-01-02] MEDS: Nystatin Powder 15 GM BOTTLE 1 APPL TOPICAL ×2 (14:27→20:48)
--- NOTE | 2023-01-02 16:34 | PC.NURSE ---
Bray catheter removed @ 1630, pt tolerated well.
[2023-01-02 16:45] LABS: Glucose, Whole Blood 166 mg/dL (60-115)
--- NOTE | 2023-01-02 16:53 | PM.PNNEP ---
Subjective Subjective Date of Service: 01/02/23 Interval history: Seen and examined, events noted Lethargic Physical Exam Vital Signs: Vital Signs: Last Vital Signs Temp 98.2 F 01/02/23 16:00 Pulse 64 01/02/23 16:00 Resp 18 01/02/23 16:00 BP 148/60 H 01/02/23 16:28 Pulse Ox 94 01/02/23 16:00 O2 Del Method Nasal Cannula 01/02/23 16:00 O2 Flow Rate 2 01/02/23 16:00 Oxygen Flow Rate 4 12/27/22 18:45 BMI result Body Mass Index 36.6 Const: Other: Middle-aged female lying in bed in mild distress on supplemental oxygen Neck supple, no JVD Regular rate and rhythm, S1-S2 heard Bilateral crackles without wheezing Abdomen soft nontender, no guarding, no rigidity Patient is drowsy and briefly awakens to verbal stimulus, non conversational Mild right lower extremity edema General: no acute distress Orientation/consciousness: patient oriented x3 HEENT: Head: Yes normocephalic Eyes: EOM: EOMs intact bilaterally Resp: Auscultation: diminished lung sounds Cardio: Rate: regular rate GI: Palpation (GI): Soft to palpation Neuro: Other: Alert and awake General: patient oriented x3 Objective Data Labs 12/31/22 06:09 01/01/23 06:17 Labs: Laboratory Results - last 24 hr 01/01/23 01/02/23 01/02/23 21:49 07:58 16:33 POC Glucose 226 H 164 H 166 H Microbiology Microbiology Results: Microbiology 12/27/22 19:26 Blood - Venous Blood Culture - Final No growth after 5 days. 12/27/22 18:59 Blood - Venous Blood Culture - Final No growth after 5 days. 12/28/22 Unknown Urine Catheterized - Straight Catheter Urine Culture - Final Escherichia coli Procedures Date of Service Date of Service: 01/02/23 Assessment & Plan Assessment and plan (1) Acute on chronic renal failure: Status: Acute Plan 67-year-old woman with a history of advanced renal failure now deemed ESRD ? - Hemoaccess: needs Pcath--IR to place in am and remove non-tunneld HD cath - Anemia: FE/EPO as per protocol - MBD of CKD: check PTH/vit D and Phos level REC: IR to place Pcath, check PTH/vit D and Phos Time Spent With Patient Time: Total time managing care of this patient today ____ minutes. Progress Note: Quality Stroke Does the patient have a stroke diagnosis?: No
[2023-01-02 20:13] LABS: Glucose, Whole Blood 168 mg/dL (60-115)
[2023-01-02] MEDS: Atorvastatin Calcium 80 MG TABLET PO (20:43)
[2023-01-02] MEDS: traZODone HCL 50 MG TABLET PO (20:43)
[2023-01-02] MEDS: Tamsulosin HCL 0.4 MG CAPSULE 0.8 MG PO (20:43)
[2023-01-02] MEDS: Melatonin 3 MG TABLET PO (20:43)
[2023-01-02] MEDS: Insulin Glargine,Hum.rec.anlog 100 UNIT/ML 10 ML VIAL 10 UNIT SUBCUT (20:46)
[2023-01-02] MEDS: Azithromycin 500 MG in 0.9 % Sodium Chloride 250 ML 125 MG IV (20:53)
[2023-01-02] MEDS: Benzonatate 100 MG CAPSULE 200 MG PO (23:10)
[2023-01-03 00:18] VITALS: BP 146/63; PULSE 59; RESP 20; TEMP 36.2; O2SAT 97
[2023-01-03 03:26] VITALS: BP 152/69; PULSE 59; RESP 20; TEMP 36.1; O2SAT 94
[2023-01-03 07:19] LABS: Glucose, Whole Blood 138 mg/dL (60-115)
[2023-01-03 07:44] VITALS: BP 154/67; PULSE 59; RESP 20; TEMP 36.2; O2SAT 94
[2023-01-03] MEDS: cefTRIAXone sodium 1 GM in 0.9 % Sodium Chloride 50 ML IV (10:48)
[2023-01-03] MEDS: carvediloL 6.25 MG TABLET PO (10:49)
[2023-01-03] MEDS: guaiFENesin LA 600 MG TAB.ER.12H PO (10:49)
[2023-01-03] MEDS: amLODIPine Besylate 10 MG TABLET PO (10:49)
[2023-01-03] MEDS: Furosemide 40 MG TABLET PO (10:50)
[2023-01-03] MEDS: Omeprazole 20 MG CAPSULE.DR PO (10:50)
[2023-01-03] MEDS: Nystatin Powder 15 GM BOTTLE 1 APPL TOPICAL (10:50)
[2023-01-03] MEDS: Bethanechol Chloride 25 MG TABLET PO (10:50)
[2023-01-03] MEDS: 0.9 % Sodium Chloride Flush 3 ML SYRINGE IVFLUSH (10:50)
--- NOTE | 2023-01-03 12:11 | HO.RADPN ---
RADIOLOGY Narrative Narrative: Right jugular temp catheter exchanged for new 14.5 fr 19 cm length [facility] permacath. Tip at cavoatrial junction.
[2023-01-03] MEDS: Benzonatate 100 MG CAPSULE 200 MG PO (13:10)
[2023-01-03] MEDS: Acetaminophen 325 MG TABLET 650 MG PO (13:10)
--- NOTE | 2023-01-03 14:07 | PM.DS ---
DS: Providers Provider Date of Service: 01/03/23 Date of admission: 12/27/22 20:18 Primary care physician: Robin Gallo MD Consults: 12/27/22 21:05 Consult to Nephrology Routine Consulting Provider: Jian Chao Reason for consultation: GIL on CKD DS: Diagnosis Discharge Diagnosis (1) Acute on chronic renal failure: Status: Acute DS: Summary Hospital Course Hospital Course: HP as per admitting provider This is a 67-year-old female with pertinent history of CKD stage 5, congestive heart failure with reduced ejection fraction, insulin-dependent type 2 diabetes mellitus, essential hypertension, mixed hyperlipidemia, chronic opioid use, mood disorder, urinary retention, gastroesophageal reflux disease who was sent to the emergency department for evaluation of dyspnea and altered mentation.? Patient is a poor historian and history obtained from ER provider and chart review.? Patient is unable to provide review of systems and does not know why she is here.? Patient is drowsy and briefly awakens to verbal stimulus.? She was found to be hypoxemic in the ER and placed on supplemental oxygen.? As per family member, patient was sent because she was noted to have decreased mentation and she was with increased work of breathing . GIL on CKD stage 5 with metabolic acidosis new to HD, permcath placed 01/03/23 outpatient spot at [facility] for HD MWF to start 01/04/23 s/p procrit Acute hypoxemic respiratory failure and sepsis secondary to community-acquired pneumonia Treated with 7 days of IV Rocephin and azithromycin blood cx negative to date wean oxygen as tolerated Chest CT pending to re-assess for pna vs effusion Acute on chronic HFrEF likely related to severe renal disease continue home lasix Acute metabolic encephalopathy secondary to above. resolved Hypernatremia. Resolved Chronic Normocytic anemia Secondary to renal disease No overt bleeding noted will transfuse 1 U rbc procrit follow CBC ecoli UTI urine culture growing e.coli s/p IV Rocephin, completed 7 days Essential hypertension Continue home diuretics and antihypertensives Elevated troponin likely type 2 in the setting of increased demand/reduced renal clearance lower then previous, no chest pain History of CVA asa, statin and statin Insulin-dependent type 2 diabetes mellitus continue home medicatons Urinary retension On bethanechol and tamsulosin Time Spent with Patient Time attestation: Total time managing care of this patient today ____ minutes. Discharge coordination time: Greater than 30 minutes Quality: Safe Use of Opioids Does Pt have an Active Cancer Diagnosis on the Problem List?: No Quality: Stroke Does the patient have a stroke diagnosis?: No Physical Exam Vital Signs: Vital Signs: Last Vital Signs Temp 97.2 F 01/03/23 07:44 Pulse 59 01/03/23 07:44 Resp 20 01/03/23 07:44 BP 154/67 H 01/03/23 07:44 Pulse Ox 94 01/03/23 07:44 O2 Del Method Nasal Cannula 01/03/23 07:44 O2 Flow Rate 1.5 01/03/23 07:44 Oxygen Flow Rate 4 12/27/22 18:45 BMI result Body Mass Index 36.6 Appearing in no acute distress head is normocephalic atraumatic eyes pupils are PERRLA sclera is anicteric mouth throat mucous membranes are intact and moist neck is supple no lymphadenopathy, no JVD noted lung sounds are clear to auscultation heart regular rate rhythm, clear S1, S2 positive bowel sounds, abdomen is soft, nontender neuro patient is alert x3, no focal deficits hx of BKA DS: Data Data Completed and Pending Completed studies during hospitalization [Text1]: Procedures Detachment at Left Index Finger, Mid, Open Approach (09/15/22) Dilation of Esophagus, Via Natural or Artificial Opening Endoscopic (01/31/22) Dilation of Upper Esophagus, Via Natural or Artificial Opening Endoscopic (08/16/21) Introduction of Other Thrombolytic into Peripheral Vein, Percutaneous Approach (06/05/21) Transfusion of Nonautologous Red Blood Cells into Peripheral Vein, Percutaneous Approach (09/15/22) Labs on day of discharge: Laboratory Results - last 24 hr 01/02/23 01/02/23 01/03/23 16:33 20:05 07:15 POC Glucose 166 H 168 H 138 H Discharge Plan Discharge Anticipated Discharge Date/Time: 01/03/23 14:00 Patient Disposition: er [facility] Discharge Diagnosis: GIL on CKD stage 5 Metabolic acidosis Acute hypoxemic respiratory failure Community-acquired pneumonia Sepsis Acute on chronic heart failure with reduced ejection fraction Acute metabolic encephalopathy Hypernatremia E coli UTI Referrals: [facility] [Outside] - 1 Week Robin Gallo MD [Primary Care Provider] - 1 Week Discharge Medications: Continued carvedilol 6.25 mg tablet 6.25 mg PO BID Qty: 60 5RF Rx Instructions: must administer with a meal/food - Take one tablet twice daily atorvastatin 80 mg tablet 80 mg PO BEDTIME trazodone 50 mg tablet 50 mg PO BEDTIME clopidogrel 75 mg tablet 75 mg PO DAILY aspirin 81 mg tablet,delayed release (DR/EC) 81 mg PO BEDTIME magnesium oxide 400 mg (241.3 mg magnesium) tablet 400 mg PO DAILY insulin glargine [Lantus Solostar U-100 Insulin] 100 unit/mL (3 mL) insulin pen 20 unit subcut DAILY oxycodone 5 mg tablet 5 mg PO Q6H PRN (Reason: pain) Qty: 20 0RF Rx Instructions: Partial Fill upon patient request. amlodipine 10 mg Tablet 10 mg PO DAILY 30 Days Qty: 30 0RF Protocol: Hold for SBP< HOLD for SBP < : 90 sodium bicarbonate 650 mg Tablet 650 mg PO BID 30 Days Qty: 60 0RF ipratropium-albuterol 0.5 mg-3 mg(2.5 mg base)/3 mL Solution For Nebulization 3 ml INHALATION Q4H PRN (Reason: Wheezing) insulin lispro [Humalog U-100 Insulin] 100 unit/mL solution See Protocol subcut QIDACHS Protocol: Insulin Correction Scale Less than or equal to 110 ---- Give (units): 0 111 to 150 Give (units): 0 151 to 200 Give (units): 2 201 to 250 Give (units): 4 251 to 300 Give (units): 6 301 to 350 Give (units): 8 Greater than 350 Give (units): 10 Call MD if Blood Glucose > : 350 Rx Instructions: sliding scale furosemide [Lasix] 40 mg tablet 40 mg PO DAILY Rx Instructions: Please call and schedule cardiology appt. naloxone 0.4 mg/mL Solution 0.4 mg SUBCUT Q3M PRN (Reason: Opioid Overdose) Rx Instructions: NTExceed 10 mg total dose/episode acetaminophen 500 mg Tablet 1,000 mg PO Q6H PRN (Reason: Fever Or Pain) Rx Instructions: do not exceed 3 grams / 24 hours magnesium hydroxide [Milk of Magnesia] 400 mg/5 mL Suspension 30 ml PO DAILY PRN (Reason: Constipation) Rx Instructions: do not administer with dialysis/ renal failure bisacodyl 10 mg Suppository 10 mg [place] DAILY PRN (Reason: Constipation) Rx Instructions: use if milk of magnesia ineffective Fleet Enema 19-7 gram/118 mL Enema 118 ml [place] DAILY PRN (Reason: Constipation) Rx Instructions: use if Bisacodyl is ineffective bethanechol chloride 25 mg Tablet 25 mg PO BID Qty: 60 0RF Lokelma 10 gram Powder In Packet 10 g PO DAILY Qty: 30 0RF melatonin 3 mg Tablet 3 mg PO BEDTIME pantoprazole 40 mg tablet,delayed release (DR/EC) 40 mg PO DAILY tamsulosin 0.4 mg capsule 0.8 mg PO BEDTIME Discharge Orders: Discharge Order (Routine); Ordered 01/03/23 Ordered By: Maria Luisa Matos Diet: Advance to usual diet Activity on Discharge: As tolerated Stand Alone Forms: Patient Portal Discharge page Care Plan Goals: New PermCath placed 01/03/2023. Continue dialysis schedule Health Concerns: GIL on CKD stage 5 Metabolic acidosis Acute hypoxemic respiratory failure Community-acquired pneumonia Sepsis Acute on chronic heart failure with reduced ejection fraction Acute metabolic encephalopathy Hypernatremia E coli UTI Plan of Treatment: Follow-up with primary care provider as needed Take all medications as prescribed Assessment: See discharge summary
[2023-01-03 15:08] LABS: Glucose, Whole Blood 149 mg/dL (60-115)
[2023-01-03 15:15] VITALS: BP 125/58; PULSE 59; RESP 17; TEMP 36.2; O2SAT 95
--- NOTE | 2023-01-03 15:19 | MHC.CM.PN ---
Patient has been medically cleared for dc to return to LTC. Patient will return to LTC at [facility] today at 6PM, via [facility]. CM and LEVEL VIAL MARKER/Maria Luisa met with Patient and her Daughter/HCP/Adelita at bedside and IMM was addressed with them (original was given to them and a copy has been placed on the chart).Patient will start her HD vat [facility] tomorrow at 6AM ([facility] has arranged transport) and HD will be M/W/F arrive at 6AM from this point on.
--- NOTE | 2023-01-03 15:27 | P.PNNP_ITS ---
Subjective Subjective Date of Service: 01/03/23 Interval history: Seen and examined, events noted Physical Exam Vital Signs: Vital Signs: Last Vital Signs Temp 97.2 F 01/03/23 15:15 Pulse 59 01/03/23 15:15 Resp 17 01/03/23 15:15 BP 125/58 L 01/03/23 15:15 Pulse Ox 95 01/03/23 15:15 O2 Del Method Nasal Cannula 01/03/23 15:15 O2 Flow Rate 1.5 01/03/23 07:44 Oxygen Flow Rate 4 12/27/22 18:45 BMI result Body Mass Index 36.6 Const: Other: Middle-aged female lying in bed in mild distress on supplemental oxygen Neck supple, no JVD Regular rate and rhythm, S1-S2 heard Bilateral crackles without wheezing Abdomen soft nontender, no guarding, no rigidity Patient is drowsy and briefly awakens to verbal stimulus, non conversational Mild right lower extremity edema General: no acute distress Orientation/consciousness: patient oriented x3 HEENT: Head: Yes normocephalic Eyes: EOM: EOMs intact bilaterally Resp: Auscultation: diminished lung sounds Cardio: Rate: regular rate GI: Palpation (GI): Soft to palpation Neuro: Other: Alert and awake General: patient oriented x3 Objective Data Labs 12/31/22 06:09 01/01/23 06:17 Labs: Laboratory Results - last 24 hr 01/02/23 01/02/23 01/03/23 16:33 20:05 07:15 POC Glucose 166 H 168 H 138 H 01/03/23 15:04 POC Glucose 149 H Microbiology Microbiology Results: Microbiology 12/27/22 19:26 Blood - Venous Blood Culture - Final No growth after 5 days. 12/27/22 18:59 Blood - Venous Blood Culture - Final No growth after 5 days. 12/28/22 Unknown Urine Catheterized - Straight Catheter Urine Culture - F inal Escherichia coli Procedures Date of Service Date of Service: 01/03/23 Assessment & Plan Assessment and plan (1) Acute on chronic renal failure: Status: Acute Plan 67-year-old woman with a history of advanced renal failure now deemed ESRD ? - Hemoaccess: sp Permcath - Anemia: FE/EPO as per protocol - MBD of CKD: check PTH/vit D and Phos level REC:, check PTH/vit D and Phos; d/c planning--has spot for HD at [facility] unit [phone] Time Spent With Patient Time: Total time managing care of this patient today ____ minutes. Progress Note: Quality Stroke Does the patient have a stroke diagnosis?: No
--- NOTE | 2023-01-03 15:32 | P.CDIM_ITS ---
PROVIDER RESPONSE TEXT: To clarify, the appropriate diagnosis supported by the clinical indicators: Acute on chronic QUERY TEXT: PHYSICIAN'S DOCUMENTATION REQUEST Date of Query: 01/02/2023 10:33 AM EDT Patient Name: Debbie Guerra Admit Date: 12/28/2022 Dear Maria Luisa Matos, A review of the medical record indicates additional documentation may be needed. Please review below and update the documentation accordingly. Clinical Indicators: Metabolic acidosis GIL on CKD 5 with metabolic acidosis Monitor creatinine and urinary output Please clarify which of the following accurately represents the acuity of the metabolic acidosis. Acute Acute on chronic Chronic stable condition Other Unable to determine Other (explain) Clinically unable to determine (explain) Thank you, Kylie Alonso, CCS, CDIS Use of terms such as suspected, likely, concern for, or probable (associated with a specific diagnosi s that is being evaluated, monitored, or treated as if it exists) are acceptable and can be coded in the inpatient se tting, when documented at the time of discharge. Please use your independent medical judgment in providing your response. THIS QUERY IS PART OF THE PERMANENT MEDICAL RECORD
[2023-01-03 15:54] LABS: COVID-19 Test Negative (Negative); IDNOW Serial# 08D9AD1C
== END 2023-01-03 18:58 | DRG 871 ==
LOC: HO.ED 20:08 → HO.EDOVER 21:05 → HO.IMC 12-28 14:18
PROVIDERS: Internal Medicine Hypertension Specialist; Physician Assistant Medical; Radiology Diagnostic Radiology; Admitting Provider Student in an Organized Health Care Education/Training Program; Emergency Provider Student in an Organized Health Care Education/Training Program; PCP Family Medicine; Visit Provider Nurse Practitioner Acute Care
PROC: 02HV33Z Insertion of Infusion Device into Superior Vena Cava, Percutaneous Approach (ICD-10-PCS; principal; 2022-12-30 10:30)
DX: A41.9 Sepsis, unspecified organism (principal); G93.41 Metabolic encephalopathy; J96.01 Acute respiratory failure with hypoxia; I50.23 Acute on chronic systolic (congestive) heart failure; J18.9 Pneumonia, unspecified organism; N17.9 Acute kidney failure, unspecified; E87.0 Hyperosmolality and hypernatremia; I13.2 Hypertensive heart and chronic kidney disease with heart failure and with stage 5 chronic kidney disease, or end stage renal disease; N18.5 Chronic kidney disease, stage 5; N39.0 Urinary tract infection, site not specified; I24.8 Other forms of acute ischemic heart disease; E78.2 Mixed hyperlipidemia; E11.22 Type 2 diabetes mellitus with diabetic chronic kidney disease; D63.1 Anemia in chronic kidney disease; R33.9 Retention of urine, unspecified; N25.0 Renal osteodystrophy; B96.20 Unspecified Escherichia coli [E. coli] as the cause of diseases classified elsewhere; Z20.822 Contact with and (suspected) exposure to COVID-19; Z86.73 Personal history of transient ischemic attack (TIA), and cerebral infarction without residual deficits; Z91.040 Latex allergy status; Z79.4 Long term (current) use of insulin; Z79.02 Long term (current) use of antithrombotics/antiplatelets; Z79.82 Long term (current) use of aspirin; Z79.891 Long term (current) use of opiate analgesic; Z79.899 Other long term (current) drug therapy
CPT/HCPCS: 0241U; 36415; 36556; 36558; 71045; 71250; 76937; 80048; 80053; 81001; 82803; 82947; 83036; 83540; 83605; 83880; 84484; 85025; 85027; 85610; 86704; 86706; 86850; 86900; 86901; 86923; 87040; 87086; 87088; 87186; 87340; 87635; 90935; 92610; 93005; 99285; C1750; C1752; C1758; C1769; J0456; J0696; J0885; J1643; J1650; J1940; J2543; P9016

== ENCOUNTER 2023-02-13 11:27 | Emergency (ER) | payer OTHER, SELFPAY ==
[2023-02-13 11:33] VITALS: BP 110/70; BP 138/61; PULSE 70; PULSE 73; RESP 16; TEMP 36.4; O2SAT 99; BMI 32.3
--- NOTE | 2023-02-13 11:37 | ED_ITS ---
HPI - General Adult General Chief complaint: General Medical Stated complaint: no one home after dialysis per ems Time Seen by Provider: 02/13/23 11:34 Source: patient and EMS Mode of arrival: EMS Limitations: no limitations History of Present Illness HPI narrative: 67 yo Bulgarian speaking female with history of ESRD on HD M/W/F, hx CVA, hx LLE BKA, cardiomyopathy, DM, gastroparesis, GERD, PNA, dysphagia, NSTEMI who presents to the ER from dialysis after her she found to have no family home when EMS brought her on from dialysis. She had no juan and no way to get into her home so she was brought to the ER. She lives at home with her daughter and grandson. She states they went to go look at a new apartment. Patient completed full HD session. She has no physical complaints. Associated symptoms: denies other symptoms Treatments prior to arrival: none Related Data Home Medications Medication Instructions Recorded Confirmed aspirin 81 mg tablet,delayed 81 mg PO BEDTIME 06/20/21 12/27/22 release atorvastatin 80 mg tablet 80 mg PO BEDTIME 06/20/21 12/27/22 clopidogrel 75 mg tablet 75 mg PO DAILY 06/20/21 12/27/22 magnesium oxide 400 mg (241.3 mg 400 mg PO DAILY 06/20/21 12/27/22 magnesium) tablet trazodone 50 mg tablet 50 mg PO BEDTIME 06/20/21 12/27/22 insulin glargine 100 unit/mL (3 20 unit subcut DAILY 03/25/22 12/27/22 mL) subcutaneous pen (Lantus Solostar U-100 Insulin) ipratropium 0.5 mg-albuterol 3 mg 3 ml inhalation Q4H PRN Wheezing 05/05/22 0 12/27/22 (2.5 mg base)/3 mL nebulization soln furosemide 40 mg tablet (Lasix) 40 mg PO DAILY 10/14/22 12/27/22 insulin lispro 100 unit/mL See Protocol subcut QIDACHS 10/14/22 12/27/22 subcutaneous solution (Humalog U-100 Insulin) acetaminophen 500 mg tablet 1,000 mg PO Q6H PRN Fever Or Pain 10/15/22 12/27/22 bisacodyl 10 mg rectal suppository 10 mg [place] DAILY PRN Constipation 10/15/22 12/27/22 magnesium hydroxide 400 mg/5 mL 30 ml PO DAILY PRN Constipation 10/15/22 12/27/22 oral suspension (Milk of Magnesia) naloxone 0.4 mg/mL injection 0.4 mg subcut Q3M PRN Opioid 10/15/22 12/27/22 solution Overdose sodium phosphates 19 gram-7 118 ml [place] DAILY PRN Constipation 10/15/22 12/27/22 gram/118 mL enema (Fleet Enema) melatonin 3 mg tablet 3 mg PO BEDTIME 12/27/22 12/27/22 pantoprazole 40 mg tablet,delayed 40 mg PO DAILY 12/27/22 12/27/22 release tamsulosin 0.4 mg capsule 0.8 mg PO BEDTIME 12/27/22 12/27/22 Previous Rx's Medication Instructions Recorded carvedilol 6.25 mg tablet 6.25 mg PO BID #60 tabs 02/21/22 amlodipine 10 mg tablet 10 mg PO DAILY 30 days #30 tabs 03/03/22 sodium bicarbonate 650 mg tablet 650 mg PO BID 30 days #60 tabs 03/03/22 oxycodone 5 mg tablet 5 mg PO Q6H PRN pain #20 tabs 09/21/22 bethanechol chloride 25 mg tablet 25 mg PO BID #60 tabs 10/19/22 sodium zirconium cyclosilicate 10 10 g PO DAILY #30 ea 10/19/22 gram oral powder packet (Lokelma) Allergies Allergy/AdvReac Type Severity Reaction Status Date / Time latex [LATEX] Allergy Intermediate ITCHY Verified 12/18/22 17:49 Review of Systems Review of Systems: Yes all other systems are reviewed and are negative [facility] Past Medical History Medical History (Updated 02/13/23 @ 14:38 by JOSE Ernst) Abnormal abdominal CT scan Acute hyperkalemia Acute kidney injury superimposed on CKD Acute on chronic renal failure Acute UTI Acute worsening of stage 4 chronic kidney disease GIL (acute kidney injury) Anemia Anemia Aspiration into airway Blister of finger without infection Cardiomyopathy Cholecystectomy planned Chronic heart failure with preserved ejection fraction (HFpEF) Chronic kidney failure CKD (chronic kidney disease) CKD (chronic kidney disease) stage 3, GFR 30-59 ml/min CKD (chronic kidney disease) stage 4, GFR 15-29 ml/min CKD (chronic kidney disease) stage 5, GFR less than 15 ml/min CKD (chronic kidney disease) stage 5, GFR less than 15 ml/min CKD (chronic kidney disease), stage IV Congestive heart failure Constipation Diabetes Diabetes mellitus Elevated d-dimer Elevated troponin Essential hypertension Gastroparesis Generalized weakness GERD (gastroesophageal reflux disease) Hand pain Hernia HLD (hyperlipidemia) HTN (hypertension) Hyperkalemia Hypomagnesemia Irritable bowel syndrome with diarrhea Ischemic necrosis of finger Lightheadedness Low blood pressure Metabolic acidosis Nausea & vomiting Non-ST elevated myocardial infarction Nonischemic cardiomyopathy Normocytic anemia Other and unspecified hyperlipidemia Overflow diarrhea Pharyngoesophageal dysphagia Pneumonia Status post amputation of finger Type 2 diabetes mellitus with unspecified complications Urinary tract infection due to ESBL Klebsiella UTI (urinary tract infection) Surgical History H/O: hysterectomy History of esophagogastroduodenoscopy (EGD) Hx of colonoscopy Hx of eye surgery Family History Family History Father Lung cancer Mother Diabetes HTN (hypertension) Heart disease Sister Diabetes Heart disease Brother Heart disease Son Diabetes Daughter Diabetes Social History Social History Household Members: Other Household Members Other:: SNF Housing: Long Term Do you presently have visiting nurse or other home services: No Unable to assess alcohol history related to: Unknown Alcohol intake: never Patient Tobacco Use Status: Never used Tobacco Smoked in Last 30 Days: No Second Hand Smoke Exposure: No Use of substances other than those prescribed or required for medical reasons: No Advance Directives: Yes Advance Directives on File: Yes Advance Directives Date on File: 02/02/22 service: No Current occupational status: disabled Physical Exam ED Vital Signs: Vital Signs - 24 hr 02/13/23 11:33 02/13/23 13:45 Temperature 97.5 F Pulse Rate 73 66 Respiratory Rate 16 18 Blood Pressure 138/61 111/66 Pulse Oximetry 99 96 Oxygen Delivery Method Room Air Room Air BMI result Body Mass Index 32.3 Appearance: Alert. Oriented X3. No acute distress. HEENT: normal inspection CVS: Normal heart rate and rhythm. Pulses normal. Respiratory: No respiratory distress. Lungs CTAB Skin: Skin warm and dry. Normal skin color. Normal skin turgor. No rashes. Extremities: s/p left BKA Neuro: Oriented X 3. Nonfocal. Medical Decision Making Medical Decision Making MDM Narrative: 67 yo female presents to the ER after she was unable to be transported home from HD due to no family at home. No phone numbers present in the chart. She states her daughter does not have a cell phone and she does not know her grandson's cell number. Case management consulted for help. 2:40 pm - patient's daughter and grandson came to the ER and transported the patient home. Differential Diagnosis Differential Diagnoses: The differential diagnosis associated with the presentation includes abandonment, confusion, miscommunication Independent Historian Clinical information obtained from an independent historian. History obtained from or confirmed by: EMS External Record Review External record reviewed: Outpatient record and Prior outpatient labs Chronic Conditions Patient?s care impacted by: Diabetes, Hypertension and Other (ESRD on HD) Critical Care Time Critical Care Time Critical Care Time: No Discharge Plan Discharge Clinical Impression: Dialysis patient Patient Disposition: Home, Self-Care Instructions: Hemodialysis (DC) Additional Instructions: continue to go to your dialysis as scheduled make sure family is available when she is brought home from dialysis Prescriptions: No Action carvedilol 6.25 mg tablet 6.25 mg PO BID Qty: 60 5RF Rx Instructions: must administer with a meal/food - Take one tablet twice daily atorvastatin 80 mg tablet 80 mg PO BEDTIME trazodone 50 mg tablet 50 mg PO BEDTIME clopidogrel 75 mg tablet 75 mg PO DAILY aspirin 81 mg tablet,delayed release (DR/EC) 81 mg PO BEDTIME magnesium oxide 400 mg (241.3 mg magnesium) tablet 400 mg PO DAILY insulin glargine [Lantus Solostar U-100 Insulin] 100 unit/mL (3 mL) insulin pen 20 unit subcut DAILY oxycodone 5 mg tablet 5 mg PO Q6H PRN (Reason: pain) Qty: 20 0RF Rx Instructions: Partial Fill upon patient request. amlodipine 10 mg Tablet 10 mg PO DAILY 30 Days Qty: 30 0RF Protocol: Hold for SBP< HOLD for SBP < : 90 sodium bicarbonate 650 mg Tablet 650 mg PO BID 30 Days Qty: 60 0RF ipratropium-albuterol 0.5 mg-3 mg(2.5 mg base)/3 mL Solution For Nebulization 3 ml INHALATION Q4H PRN (Reason: Wheezing) insulin lispro [Humalog U-100 Insulin] 100 unit/mL solution See Protocol subcut QIDACHS Protocol: Insulin Correction Scale Less than or equal to 110 ---- Give (units): 0 111 to 150 Give (units): 0 151 to 200 Give (units): 2 201 to 250 Give (units): 4 251 to 300 Give (units): 6 301 to 350 Give (units): 8 Greater than 350 Give (units): 10 Call MD if Blood Glucose > : 350 Rx Instructions: sliding scale furosemide [Lasix] 40 mg tablet 40 mg PO DAILY Rx Instructions: Please call and schedule cardiology appt. naloxone 0.4 mg/mL Solution 0.4 mg SUBCUT Q3M PRN (Reason: Opioid Overdose) Rx Instructions: NTExceed 10 mg total dose/episode acetaminophen 500 mg Tablet 1,000 mg PO Q6H PRN (Reason: Fever Or Pain) Rx Instructions: do not exceed 3 grams / 24 hours magnesium hydroxide [Milk of Magnesia] 400 mg/5 mL Suspension 30 ml PO DAILY PRN (Reason: Constipation) Rx Instructions: do not administer with dialysis/ renal failure bisacodyl 10 mg Suppository 10 mg [place] DAILY PRN (Reason: Constipation) Rx Instructions: use if milk of magnesia ineffective Fleet Enema 19-7 gram/118 mL Enema 118 ml [place] DAILY PRN (Reason: Constipation) Rx Instructions: use if Bisacodyl is ineffective bethanechol chloride 25 mg Tablet 25 mg PO BID Qty: 60 0RF Lokelma 10 gram Powder In Packet 10 g PO DAILY Qty: 30 0RF melatonin 3 mg Tablet 3 mg PO BEDTIME pantoprazole 40 mg tablet,delayed release (DR/EC) 40 mg PO DAILY tamsulosin 0.4 mg capsule 0.8 mg PO BEDTIME Interventions: ED Discharge Assessment Last Done: 02/13/23 14:39 Discharge Date/Time: 02/13/23 14:48
--- NOTE | 2023-02-13 11:53 | PC.NURSE ---
Pt alert/oriented. No medical complaints offered. States daughter or grandson not answering door after dialysis. Right chest permacath in place. Skin pwd. Cleaned for sm stool incontinence
[2023-02-13 13:45] VITALS: BP 111/66; PULSE 66; RESP 18; O2SAT 96
--- NOTE | 2023-02-13 14:30 | MHC.CM.ED ---
Addendum entered by Robyn Kendall 02/13/23 14:39: Daughter, Adelita and grandson, Parag, came to ER. EMS did not ring the doorbell which is why they didn't answer the door. Daughter doesn't have a phone anymore. Grandson, Parag, can be reached via telephone at [phone]. [facility] and GIULIANO Lynch made aware. Original Note: Received notification from Sharlene GARCIA that patient came to ER after HD. EMS attempted to transport patient home. No family was present to open the door. T/W attempted to call daughter, Adelita, via telephone at [phone]. This telephone is not accepting telephone calls at this time was the message received. Tried to call [phone]. Line is out of service. Patient is active with [facility]. T/W spoke with Jennifer at [facility]. They also have [phone] on file. That phone number just gives off a busy signal. Per [facility] manager managed care, Ainsley is case management coordinator at [facility]. She can be reached via telephone at [phone] ext. [phone]. Left message requesting return telephone call. Continue to monitor for d/c needs.
--- NOTE | 2023-02-13 14:40 | PC.NURSE ---
Alert and oriented. Denies pain or discomfort. Daughter and grandson came to visit. Ambulance offered however daughter stating her mom is hungry and she would take her home herself so that her mom would not have to wait for the ambulance.
== END 2023-02-13 14:48 | disposition home or self-care (01) ==
PROVIDERS: Emergency Provider Student in an Organized Health Care Education/Training Program
DX: I13.2 Hypertensive heart and chronic kidney disease with heart failure and with stage 5 chronic kidney disease, or end stage renal disease (principal); E11.22 Type 2 diabetes mellitus with diabetic chronic kidney disease; N18.5 Chronic kidney disease, stage 5; Z99.2 Dependence on renal dialysis; Z79.4 Long term (current) use of insulin; Z79.899 Other long term (current) drug therapy
CPT/HCPCS: 99284

== ENCOUNTER → 2023-02-14 13:05 | Outpatient (BNVA) | payer OTHER, SELFPAY | PROVIDERS: Visit Provider Surgery Vascular Surgery | DX: N18.6 End stage renal disease (principal) | CPT/HCPCS: 99202 ==

== ENCOUNTER 2023-02-20 09:41 | Day surgery (SDC) | payer OTHER, SELFPAY ==
--- NOTE | 2023-02-17 13:14 | P.CONAN_ITS ---
Documented by User: Debbie Sorto NP 02/17/23 13:36 HPI - Anesthesia Eval Consult details Narrative: 67yo F for Left AV Fistula Creation Permacath in situ - placed 01/03/23 s/p finger amp 09/2022 with TIVA 09/2022 [facility] admit with finger cellulitis/NSTEMI. Eval'd by cardiology, medical management only d/t renal disease/comorbidities. Unable to reach patient or family by phone for telephone PAT eval 02/17/23. [facility] Active Problems Active Problems: All Active Problems (Updated 02/14/23 @ 14:02 by Martin Ruelas MD) End stage renal disease (Acute) Urinary retention (Acute) Toxic metabolic encephalopathy (Acute) Hypoglycemia (Acute) Dysphagia (Acute) Cerebral infarction (Acute) Acute CVA (cerebrovascular accident) (Acute) Past Medical History Medical History Dialysis patient, noncompliant Chronic kidney disease Thrombocytopenia CKD (chronic kidney disease) stage 4, GFR 15-29 ml/min End stage renal disease Constipation 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 Normocytic anemia Urinary tract infection due to ESBL Klebsiella Chronic heart failure with preserved ejection fraction (HFpEF) Hypomagnesemia Acute on chronic renal failure Essential hypertension HLD (hyperlipidemia) Non-ST elevated myocardial infarction Diabetes mellitus Congestive heart failure Nonischemic cardiomyopathy Irritable bowel syndrome with diarrhea Gastroparesis GERD (gastroesophageal reflux disease) Family History Family History Father Lung cancer Mother Diabetes HTN (hypertension) Heart disease Sister Diabetes Heart disease Brother Heart disease Son Diabetes Daughter Diabetes Family history of problems with anesthesia: No Surgical History Surgical History H/O surgical amputation of finger History of laparoscopic cholecystectomy History of intestinal surgery Hx of eye surgery History of esophagogastroduodenoscopy (EGD) Hx of colonoscopy H/O: hysterectomy History of Problems with Anesthesia: No Social History Household Members: Family Household Members Other:: SNF Housing: House Do you presently have visiting nurse or other home services: No Unable to assess alcohol history related to: Unknown Alcohol intake: never Patient Tobacco Use Status: Never used Tobacco Second Hand Smoke Exposure: No Advance Directives Date on File: 01/04/23 service: No Current occupational status: disabled Meds Allergies Allergy/AdvReac Type Severity Reaction Status Date / Time latex [LATEX] Allergy Intermediate ITCHY Verified 05/25/23 09:18 Home Medications Medication Instructions Recorded Confirmed Last Taken Type aspirin 81 mg tablet,delayed 81 mg PO BEDTIME 06/20/21 07/24/23 02/19/23 History release atorvastatin 80 mg tablet 80 mg PO BEDTIME 06/20/21 07/24/23 10/13/22 History clopidogrel 75 mg tablet 75 mg PO DAILY 06/20/21 07/24/23 02/19/23 History trazodone 50 mg tablet 50 mg PO BEDTIME 06/20/21 07/24/23 10/13/22 History insulin glargine 100 unit/mL (3 20 unit subcut DAILY 03/25/22 07/24/23 02/19/23 20:00 History mL) subcutaneous pen (Lantus 20 units Solostar U-100 Insulin) ipratropium 0.5 mg-albuterol 3 mg 3 ml inhalation Q4H PRN Wheezing 05/05/22 07/24/23 Unknown History (2.5 mg base)/3 mL nebulization soln melatonin 3 mg tablet 3 mg PO BEDTIME PRN Insomnia 12/27/22 07/24/23 Unknown History amlodipine 5 mg tablet 5 mg PO DAILY 04/20/23 07/24/23 Unknown History carvedilol 6.25 mg tablet 6.25 mg PO BIDWM 04/20/23 07/24/23 Unknown History magnesium oxide 400 mg (241.3 mg 400 mg PO DAILY 04/20/23 07/24/23 Unknown History magnesium) tablet blood sugar diagnostic (OneTouch #10 ea 05/25/23 Unknown History Ultra Test strips) insulin aspart U-100 100 unit/mL 8 - 12 unit subcut DIRECTED 05/25/23 07/24/23 Unknown History (3 mL) subcutaneous pen (Novolog FlexPen U-100 Insulin aspart) lancets 33 gauge (OneTouch [place] #100 ea 05/25/23 Unknown History Plus Lancet) pen needle, diabetic 32 gauge x #1,200 ea 05/25/23 Unknown History (Pentips) Exam Exam Date and Time: February 17, 2023 1314 Narrative Narrative: EKG 11/2022 Vent. Rate : 056 BPM ? ? Atrial Rate : 056 BPM ?? P-R Int : 180 ms? QRS Dur : 120 ms ? ? QT Int : 490 ms ? ? ? P-R-T Axes : 083 103 -73 degrees ?? QTc Int : 472 ms ? Sinus bradycardia Low voltage QRS Possible Anterolateral infarct (cited on or before 18-DEC-2022) Abnormal ECG When compared with ECG of 18-DEC-2022 19:12, Serial changes of Anterior infarct Present Cardiac eval during [facility] inpatient 09/2022: Last echocardiogram with mild to moderately reduced LVEF at 40-45%.? Moderate to severely decreased right ventricular systolic function. In the repeat study, LVEF 32%.? [id number] aortic stenosis.? Mild mitral regurgitation moderate to severe pulmonary hypertension. Myocardial perfusion imaging study from 2020-normal perfusion; LVEF 35%. Troponin trend noted.? Levels include 335, 353, 405 and 521. Elevated BUN creatinine at 67 and 3.6. She is also anemic at 7.2. Overall, non ST-elevation myocardial infarction in setting of finger cellulitis. Recommend medical management with IV heparin for 48 hours, aspirin, statins. Considering the extent of her comorbidities including renal failure, anemia, she is not a good candidate for cardiac catheterization. Assessment and Plan Assessment Anesthesia Assessment: Chart Reviewed Final Anesthetic Review Family History of Problems with Anesthesia: No History of Problems with Anesthesia: No Documented by User: Daniel Lee MD 08/25/23 00:04 [facility] Past Medical History Medical History Dialysis patient, noncompliant Chronic kidney disease Thrombocytopenia CKD (chronic kidney disease) stage 4, GFR 15-29 ml/min End stage renal disease Constipation 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 Normocytic anemia Urinary tract infection due to ESBL Klebsiella Chronic heart failure with preserved ejection fraction (HFpEF) Hypomagnesemia Acute on chronic renal failure Essential hypertension HLD (hyperlipidemia) Non-ST elevated myocardial infarction Diabetes mellitus Congestive heart failure Nonischemic cardiomyopathy Irritable bowel syndrome with diarrhea Gastroparesis GERD (gastroesophageal reflux disease) Family History Family History Father Lung cancer Mother Diabetes HTN (hypertension) Heart disease Sister Diabetes Heart disease Brother Heart disease Son Diabetes Daughter Diabetes Surgical History Surgical History H/O surgical amputation of finger History of laparoscopic cholecystectomy History of intestinal surgery Hx of eye surgery History of esophagogastroduodenoscopy (EGD) Hx of colonoscopy H/O: hysterectomy Social History Household Members: Family Household Members Other:: SNF Housing: House Do you presently have visiting nurse or other home services: No Unable to assess alcohol history related to: Unknown Alcohol intake: never Patient Tobacco Use Status: Never used Tobacco Second Hand Smoke Exposure: No Advance Directives Date on File: 01/04/23 service: No Current occupational status: disabled Meds Allergies Allergy/AdvReac Type Severity Reaction Status Date / Time latex [LATEX] Allergy Intermediate ITCHY Verified 05/25/23 09:18 Home Medications Medication Instructions Recorded Confirmed Last Taken Type aspirin 81 mg tablet,delayed 81 mg PO BEDTIME 06/20/21 07/24/23 02/19/23 History release atorvastatin 80 mg tablet 80 mg PO BEDTIME 06/20/21 07/24/23 10/13/22 History clopidogrel 75 mg tablet 75 mg PO DAILY 06/20/21 07/24/23 02/19/23 History trazodone 50 mg tablet 50 mg PO BEDTIME 06/20/21 07/24/23 10/13/22 History insulin glargine 100 unit/mL (3 20 unit subcut DAILY 03/25/22 07/24/23 02/19/23 20:00 History mL) subcutaneous pen (Lantus 20 units Solostar U-100 Insulin) ipratropium 0.5 mg-albuterol 3 mg 3 ml inhalation Q4H PRN Wheezing 05/05/22 Unknown History (2.5 mg base)/3 mL nebulization soln melatonin 3 mg tablet 3 mg PO BEDTIME PRN Insomnia 12/27/22 07/24/23 Unknown History amlodipine 5 mg tablet 5 mg PO DAILY 04/20/23 07/24/23 Unknown History carvedilol 6.25 mg tablet 6.25 mg PO BIDWM 04/20/23 07/24/23 Unknown History magnesium oxide 400 mg (241.3 mg 400 mg PO DAILY 04/20/23 07/24/23 Unknown History magnesium) tablet blood sugar diagnostic (OneTouch #10 ea 05/25/23 Unknown History Ultra Test strips) insulin aspart U-100 100 unit/mL 8 - 12 unit subcut DIRECTED 05/25/23 07/24/23 Unknown History (3 mL) subcutaneous pen (Novolog FlexPen U-100 Insulin aspart) lancets 33 gauge ([employer]Touch Delica #100 ea 05/25/23 Unknown History Plus Lancet) pen needle, diabetic 32 gauge x #1,200 ea 05/25/23 Unknown History (Pentips) Exam Airway Mallampati Class: III TM Dist: >3cm Loose/Missing/Broken Teeth: Yes Assessment and Plan Assessment Anesthesia Assessment: Anesthesia Plan Discussed Final Anesthetic Review NPO: Yes ASA Class: IV (urgent) Final Preanesthetic Review: Meds/Allgs Chart Reviewed, Consent Obtained/Reviewed and Anes Risks/Benef Reviewed Patient Risk: High Procedure Risk: Intermediate Anesthetic Plan Anesthetic Plan: MAC: and Agree w/ Assess. and Plan Disposition: Extended PACU
[2023-02-20 09:56] VITALS: BP 164/86; PULSE 77; RESP 16; TEMP 36.3; O2SAT 99
[2023-02-20 10:02] LABS: Hematocrit 41.4 % (37.0-47.0); Hemoglobin 13.2 g/dl (12.0-16.0); Mean Corpuscular HGB Conc 31.9 g/dl (31.0-35.0); Mean Corpuscular Hemoglobin 25.2 pg (27.0-33.0); Mean Platelet Volume 10.1 fL (9.4-12.3); Platelet Count 196 X10*3/uL (160-400); Red Blood Count 5.24 X10*6/uL (4.20-5.50); Red Cell Distribution Width 14.4 % (11.0-16.0); White Blood Count 8.5 X10*3/uL (4.8-10.8)
[2023-02-20 10:08] LABS: Prothrombin Time 11.1 SEC (10.0-13.1)
[2023-02-20 10:10] LABS: Partial Thromboplastin Time 27.6 SEC (26.0-36.4)
[2023-02-20 10:12] LABS: Glucose, Whole Blood 197 mg/dL (60-115)
[2023-02-20 10:14] VITALS: BMI 32.8
[2023-02-20 10:23] LABS: Anion Gap 15 (12-20); Blood Urea Nitrogen 39 mg/dL (9-16); Calcium 8.8 mg/dL (8.4-10.2); Carbon Dioxide 24 mmol/L (22-29); Chloride 104 mmol/L (96-108); Estimated Glomerular Filt Rate 17; Glucose Random 198 mg/dL (60-115); Potassium 4.9 mmol/L (3.3-5.1); Sodium 138 mmol/L (135-145)
[2023-02-20] MEDS: 0.9 % Sodium Chloride 1,000 ML 50 ML IVCONT (10:52)
--- NOTE | 2023-02-20 12:34 | PC.NURSE ---
Dr. Conteh and Dr. Lee at bedside. Question of inverted T wave on monitor. This rhythm compared to last EKG by doctors. No new orders at this time. Patient also complaining of right chest pain where port is. Site asymptomatic. Pain 03/11. MD/s aware, No new orders. Patient took plavix and asa yesterday, per Dr. Ruelas this is okay.
[2023-02-20 14:31] VITALS: BP 141/56; PULSE 81; RESP 14; TEMP 36.6; O2SAT 97
--- NOTE | 2023-02-20 14:31 | W.PM.OPN ---
Operative Note Operative Note Date of Service: 02/20/23 Narrative: Operative note by [facility] Preoperative diagnosis: End-stage renal disease Postoperative diagnosis: Same Procedure: Left arm brachiocephalic fistula creation Surgeon:Martin Ruelas M.D. Castings Drafter: Arabella Anesthesia: Block with sedation by Anesthesia Specimens: None Drains: None Estimated blood loss: 50 mL Indications: 67-year-old female with a history of end-stage renal disease who is currently being dialyzed through a PermCath is now for permanent dialysis access. The patient has signed the informed consent after reviewing risks, complications, benefits, and alternatives previously discussed with the patient. The patient was given the opportunity to ask any additional questions or voice any concerns. All questions were answered to the patient's satisfaction. Consent was obtained with content administrator present Procedure in detail: Patient was brought to the operating room prior to which a time-out was called for patient identification site verification. Left arm was prepped and draped in standard surgical fashion. Approximately 2 finger breaths above the left antecubital fossa a transverse incision was created. Prior to incision the vein and artery were mapped out and marked on the skin with a marking pen. Once the transverse incision was made we easily identify the cephalic vein. This was isolated and encircled with a silastic loop. We then turned our attention to the brachial artery. We were easily able to palpate a pulse. We dissected down using Metzenbaum scissors. We obtained approximately a 5 cm length. We isolated proximally and distally with silastic loops. Once this was accomplished we then administered 3000 units of systemic heparin after 5 minutes of circulation time we then dissected and transected the most distal part of that cephalic vein. Side branches were tied off with 3-0 silk ties. Once this was all accomplished we then suture ligated the residual remnant cephalic vein with a 3-0 silk suture. We then trimmed the cephalic vein appropriately in created a hearn we the then clamped off the brachial artery proximally and distally. Arteriotomy was created using 11 blade and Rod scissor. Once this was opened we then over splayed open the artery using interrupted medial and lateral 7 0 Prolene stitch on a rubber shod. Once this was done we hooded on the cephalic vein using a 6 0 Prolene. This was anastomosed in a circumferential manner. Prior to closure it was flushed clear. We then closed on we then place no for hemostasis. Direct pressure was held for approximately 5 minutes. Once adequate hemostasis was achieved the wound was irrigated clear. Deep layer was reapproximated using 2 0 poly Sorb and finally superficial with a 4-0 Monocryl in a running subcuticular manner. EpiFix was used as a sterile dressing. At the end the case the patient had a palpable radial and ulnar pulse with good capillary refill. Patient tolerated the procedure well returned to recovery with stable vitals. This note is constructed using voice recognition software. While every effort has been made to ensure accuracy, christmas tree contractor errors may have been included. Thank you for allowing me to participate in the care of your patient. Yours sincerely, Martin Ruelas MD, FACS, R.P.V.I.
[2023-02-20 14:36] VITALS: BP 163/56; PULSE 75; RESP 18; O2SAT 100
[2023-02-20 14:46] VITALS: BP 152/57; PULSE 74; RESP 18; TEMP 36.2; O2SAT 97
== END 2023-02-20 15:38 | disposition home or self-care (01) ==
PROVIDERS: Visit Provider Surgery Vascular Surgery
PROC: (CPT 36821; principal; 2023-02-20 10:50)
DX: I13.2 Hypertensive heart and chronic kidney disease with heart failure and with stage 5 chronic kidney disease, or end stage renal disease (principal); N18.6 End stage renal disease; E11.22 Type 2 diabetes mellitus with diabetic chronic kidney disease; I50.32 Chronic diastolic (congestive) heart failure; Z99.2 Dependence on renal dialysis; I25.2 Old myocardial infarction; D64.9 Anemia, unspecified; E78.5 Hyperlipidemia, unspecified; E16.2 Hypoglycemia, unspecified; E87.5 Hyperkalemia; E83.42 Hypomagnesemia; R33.9 Retention of urine, unspecified; K58.0 Irritable bowel syndrome with diarrhea; Z79.4 Long term (current) use of insulin; Z79.82 Long term (current) use of aspirin; Z79.899 Other long term (current) drug therapy; Z91.040 Latex allergy status; Z89.021 Acquired absence of right finger(s); Z89.519 Acquired absence of unspecified leg below knee; Z90.49 Acquired absence of other specified parts of digestive tract; Z98.890 Other specified postprocedural states
CPT/HCPCS: 36821; 36415; 80048; 82947; 85027; 85610; 85730; J0690; J1643; J2795

== ENCOUNTER → 2023-03-09 13:37 | Outpatient (BNVA) | payer OTHER, SELFPAY | PROVIDERS: Visit Provider Surgery Vascular Surgery | DX: Z48.812 Encounter for surgical aftercare following surgery on the circulatory system (principal); N18.6 End stage renal disease; Z98.890 Other specified postprocedural states | CPT/HCPCS: 99212 ==

== ENCOUNTER 2023-03-15 17:49 | Emergency (ER) | payer OTHER, SELFPAY ==
--- NOTE | ~2023-03-15 | XR_ITS ---
EXAMINATION: XR CHEST CLINICAL INFORMATION: Chest pain COMPARISON: Chest x-ray 01/01/2023. CT of chest 01/02/2023 TECHNIQUE: Frontal portable view of the chest was obtained. 6:09 PM FINDINGS: Central port catheter tip in superior vena cava at the cavoatrial junction. No pneumothorax. The cardiac and mediastinal contours are normal. There is mild central pulmonary vascular prominence and bronchial wall thickening. No overt pulmonary edema. Linear scarring or atelectasis at left lung base peripherally. No focal dense consolidation. No focal consolidation. Minimal blunting of the right and the left costophrenic angle consistent with small bilateral pleural effusions. XR/XR chest 1V IMPRESSION: 1. Central port catheter tip in superior vena cava at the cavoatrial junction. No pneumothorax. 2. Mild central pulmonary vascular prominence and bronchial wall thickening. 3. Small bilateral pleural effusions.
[2023-03-15 18:07] VITALS: BP 158/84; PULSE 74; O2SAT 100
--- NOTE | 2023-03-15 18:07 | ECG_ITS ---
Test Reason : CHEST PAIN Blood Pressure : / mmHG Vent. Rate : 074 BPM Atrial Rate : 074 BPM P-R Int : 164 ms QRS Dur : 124 ms QT Int : 460 ms P-R-T Axes : 051 003 226 degrees QTc Int : 510 ms Normal sinus rhythm Left ventricular hypertrophy with QRS widening and repolarization abnormality ( Sokolow-Jamison , [place] product ) Abnormal ECG When compared with ECG of 27-DEC-2022 19:09, Questionable change in QRS axis T wave inversion more evident in Inferior leads T wave inversion now evident in Lateral leads Referred By: Yumi Garcia Electronically Signed By:LUCRECIA PILLAI MD
--- NOTE | 2023-03-15 18:27 | ED.CHESTPAIN ---
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 Patient with known history of cardiomyopathy with reduced ejection fracture, CKD stage 5, type 2 diabetes mellitus, essential hypertension, patient presented with dyspnea for 1 day, patient originally is a poor historian. Declined abdominal pain, nausea, vomiting, dysuria, or frequency. Related Data Home Medications Medication Instructions Recorded Confirmed aspirin 81 mg tablet,delayed 81 mg PO BEDTIME 06/20/21 02/20/23 release atorvastatin 80 mg tablet 80 mg PO BEDTIME 06/20/21 12/27/22 clopidogrel 75 mg tablet 75 mg PO DAILY 06/20/21 02/20/23 magnesium oxide 400 mg (241.3 mg 400 mg PO DAILY 06/20/21 12/27/22 magnesium) tablet trazodone 50 mg tablet 50 mg PO BEDTIME 06/20/21 12/27/22 insulin glargine 100 unit/mL (3 20 unit subcut DAILY 03/25/22 02/20/23 mL) subcutaneous pen (Lantus Solostar U-100 Insulin) ipratropium 0.5 mg-albuterol 3 mg 3 ml inhalation Q4H PRN Wheezing 05/05/22 12/27/22 (2.5 mg base)/3 mL nebulization soln furosemide 40 mg tablet (Lasix) 40 mg PO DAILY 10/14/22 12/27/22 insulin lispro 100 unit/mL See Protocol subcut QIDACHS 10/14/22 02/20/23 subcutaneous solution (Humalog U-100 Insulin) acetaminophen 500 mg tablet 1,000 mg PO Q6H PRN Fever Or Pain 10/15/22 12/27/22 bisacodyl 10 mg rectal suppository 10 mg MO DAILY PRN Constipation 10/15/22 12/27/22 magnesium hydroxide 400 mg/5 mL 30 ml PO DAILY PRN Constipation 10/15/22 12/27/22 oral suspension (Milk of Magnesia) naloxone 0.4 mg/mL injection 0.4 mg subcut Q3M PRN Opioid 10/15/22 12/27/22 solution Overdose sodium phosphates 19 gram-7 118 ml MO DAILY PRN Constipation 10/15/22 12/27/22 gram/118 mL enema (Fleet Enema) melatonin 3 mg tablet 3 mg PO BEDTIME 12/27/22 12/27/22 pantoprazole 40 mg tablet,delayed 40 mg PO DAILY 12/27/22 12/27/22 release tamsulosin 0.4 mg capsule 0.8 mg PO BEDTIME 12/27/22 12/27/22 Previous Rx's Medication Instructions Recorded carvedilol 6.25 mg tablet 6.25 mg PO BID #60 tabs 02/21/22 amlodipine 10 mg tablet 10 mg PO DAILY 30 days #30 tabs 03/03/22 sodium bicarbonate 650 mg tablet 650 mg PO BID 30 days #60 tabs 03/03/22 oxycodone 5 mg tablet 5 mg PO Q6H PRN pain #20 tabs 09/21/22 bethanechol chloride 25 mg tablet 25 mg PO BID #60 tabs 10/19/22 sodium zirconium cyclosilicate 10 10 g PO DAILY #30 ea 10/19/22 gram oral powder packet (Lokelma) albuterol sulfate 90 mcg/actuation 1 inh inhalation QID PRN shortness 03/16/23 aerosol inhaler of breath or wheezing #8.5 grams prednisone 20 mg tablet 20 mg PO BID #10 tabs 03/16/23 Allergies Allergy/AdvReac Type Severity Reaction Status Date / Time latex [LATEX] Allergy Intermediate ITCHY Verified 03/09/23 13:42 Review of Systems Review of Systems: All other systems are reviewed and are negative Constitutional: Reports as per HPI and Reports no additional constitutional complaints Eyes: Reports as per HPI and Reports no additional eye complaints Reports system reviewed and no additional complaints, except as documented Cardiovascular: Reports as per HPI and Reports no additional cardiovascular complaints Respiratory: Reports as per HPI and Reports no additional respiratory complaints Gastrointestinal: Reports as per HPI and Reports no additional gastrointestinal complaints Genitourinary: Reports no additional female genitourinary complaints Musculoskeletal: Reports no additional musculoskeletal complaints Skin/Breast: Reports system reviewed and no additional complaints, except as docu Psychiatric: Reports no additional psychiatric complaints Endocrine: Reports no additional endocrine complaints Hematologic/Lymphatic: Reports no additional hematologic/lymphatic complaints Allergic/Immunologic: Reports no additional allergic/immunologic complaints Reports system reviewed and no additional complaints, except as documented and Reports Abnormal speech present [facility] Past Medical History Medical History Abnormal abdominal CT scan Acute hyperkalemia Acute kidney injury superimposed on CKD Acute on chronic renal failure Acute UTI Acute worsening of stage 4 chronic kidney disease GIL (acute kidney injury) Anemia Anemia Aspiration into airway Blister of finger without infection Cardiomyopathy Cholecystectomy planned Chronic heart failure with preserved ejection fraction (HFpEF) Chronic kidney failure CKD (chronic kidney disease) CKD (chronic kidney disease) stage 3, GFR 30-59 ml/min CKD (chronic kidney disease) stage 4, GFR 15-29 ml/min CKD (chronic kidney disease) stage 5, GFR less than 15 ml/min CKD (chronic kidney disease) stage 5, GFR less than 15 ml/min CKD (chronic kidney disease), stage IV Congestive heart failure Constipation Diabetes Diabetes mellitus Elevated d-dimer Elevated troponin Essential hypertension Gastroparesis Generalized weakness GERD (gastroesophageal reflux disease) Hand pain Hernia HLD (hyperlipidemia) HTN (hypertension) Hyperkalemia Hypomagnesemia Irritable bowel syndrome with diarrhea Ischemic necrosis of finger Lightheadedness Low blood pressure Lower extremity amputee Metabolic acidosis Nausea & vomiting Non-ST elevated myocardial infarction Nonischemic cardiomyopathy Normocytic anemia Other and unspecified hyperlipidemia Overflow diarrhea Pharyngoesophageal dysphagia Pneumonia Status post amputation of finger Type 2 diabetes mellitus with unspecified complications Urinary tract infection due to ESBL Klebsiella UTI (urinary tract infection) Surgical History H/O surgical amputation of finger H/O: hysterectomy History of esophagogastroduodenoscopy (EGD) History of intestinal surgery History of laparoscopic cholecystectomy Hx of colonoscopy Hx of eye surgery Family History Family History Father Lung cancer Mother Diabetes HTN (hypertension) Heart disease Sister Diabetes Heart disease Brother Heart disease Son Diabetes Daughter Diabetes Social History Social History Household Members: Other Household Members Other:: SNF Housing: [facility] Do you presently have visiting nurse or other home services: No Unable to assess alcohol history related to: Unknown Alcohol intake: never Patient Tobacco Use Status: Never used Tobacco Smoked in Last 30 Days: No Second Hand Smoke Exposure: No Use of substances other than those prescribed or required for medical reasons: No Advance Directives: Yes Advance Directives on File: Yes Advance Directives Date on File: 01/04/23 service: No Current occupational status: disabled Physical Exam Vital Signs: Vital Signs: Last Vital Signs Temp 97.9 F 03/16/23 00:00 Pulse 78 03/16/23 00:00 Resp 19 03/16/23 00:00 BP 173/77 H 03/16/23 00:00 Pulse Ox 100 03/16/23 00:00 O2 Del Method Room Air 03/16/23 00:00 BMI result Body Mass Index 28.4 Vital signs have been reviewed as appeared to be correct. Blood pressure normal. Heart rate normal. Respiration rate normal. Temperature normal. Oxygen saturation normal. Appearance: Alert. Oriented X3. No acute distress. Head: Normal external exam. Normocephalic. Atraumatic. No Jones signs noted. No raccoon eyes noted Eyes: PERRLA. EOMI. Conjunctiva and sclera normal. Eyelids normal. ENT: TM's Normal. Pharynx normal. Uvula midline. Moist mucous membranes. No trismus noted. No drooling noted. No muffled voice noted. Neck: Normal inspection. Neck supple. FROM. No adenopathy. Thyroid Normal. No meningeal signs. No neck mass noted. CVS: Normal heart rate and rhythm. Heart sound normal. No murmurs noted. Pulses normal throughout. Respiratory: No respiratory distress. Painless inspiration. Breath sounds normal. No wheezes/rales/rhonchi noted. Chest nontender. No accessory muscle usage noted or decreased air movement noted. Abdomen: Soft and nontender. Bowel sounds normal in all 4 quadrants. No distention noted. No organomegaly noted. No visible injury noted. Back: No CVA tenderness. Full range of motion noted. Skin: Skin warm and dry. Normal skin color. Normal skin turgor. No rashes/lesions/lacerations noted. Extremities: No lower extremity edema. Extremities exhibit normal range of motion. Extremities nontender. Neuro: Oriented X 3. Cranial nerve exam: II-XII are grossly intact No motor deficit. No sensory deficit. Reflexes normal. Course Course Course Narrative: 68-year-old female presented with CP and SOB patient with history of COPD, patient improved after bronchodilator, Solu-Medrol. Unremarkable labs patient feels better and looks better demanding to be discharged home. Medications Administered Discontinued Medications Generic Name Dose Route Start Last Admin Trade Name Wang PRN Reason Stop Dose Admin Albuterol Sulfate 7.5 mg 03/15/23 18:22 03/15/23 18:46 Albuterol Sulfate (0.083%) 2.5 Mg/3 Ml Vial.Neb INHALE 03/15/23 18:23 7.5 mg ONCE ONE Administration Albuterol/Ipratropium 3 ml 03/15/23 18:22 03/15/23 18:46 Albuterol/Iprat 2.5/0.5mg 3 Ml Ampul.Neb INHALE 03/15/23 18:23 3 ml ONCE ONE Administration Methylprednisolone Sodium Succinate 125 mg 03/15/23 18:23 03/15/23 18:47 Methylprednisolone Sod Succ 125 Mg/2 Ml Vial IVPUSH 03/15/23 18:24 125 mg ONCE ONE Administration Medical Decision Making Differential Diagnosis Differential Diagnoses: The differential diagnosis associated with the presentation includes (COPD exacerbation, pneumonia, pleural effusion, pneumothorax, ACS, electrolyte abnormalities, anemia.) Admission/Observation Consideration of admission/observation: Escalation of care including admission/observation considered Lab Data MDM Lab Attestation statement: I reviewed the patient's lab results. 03/15/23 18:40 03/15/23 18:40 Labs: Lab Results 03/15/23 03/15/23 03/15/23 Range/Units 18:40 18:40 18:40 WBC 8.4 (4.8-10.8) X10*3/uL RBC 4.33 (4.20-5.50) X10*6/uL Hgb 11.1 L (12.0-16.0) g/dl Hct 34.8 L (37.0-47.0) % MCV 80.4 (80.0-98.0) fL MCH 25.6 L (27.0-33.0) pg MCHC 31.9 (31.0-35.0) g/dl RDW 14.2 (11.0-16.0) % Plt Count 206 (160-400) X10*3/uL MPV 11.0 (9.4-12.3) fL Immature Gran % (Auto) 0.4 (0.0-0.4) % Neut % (Auto) 60.0 (45-73) % Lymph % (Auto) 28.5 (20-40) % Wallace % (Auto) 6.7 (2-11) % Eos % (Auto) 4.0 (0-4) % Baso % (Auto) 0.4 (0-2) % Lymph # (Auto) 2.4 (1.2-4.9) X10*3/uL Wallace # (Auto) 0.6 (0.1-1.2) X10*3/uL Eos # (Auto) 0.3 (0.0-0.4) X10*3/uL Baso # (Auto) 0.0 (0.0-0.2) X10*3/uL Abs Immat Gran (auto) 0.03 (0.00-0.03) X10*3/uL Absolute Neuts (auto) 5.1 (2.0-8.3) x10*3/uL Absolute Nucleated RBC 0.000 (0.0-0.012) X10*3/uL Nucleated RBC % (auto) 0.0 (0.0-0.2) /100WBC Sodium 135 (135-145) mmol/L Potassium 4.8 (3.3-5.1) mmol/L Chloride 100 (96-108) mmol/L Carbon Dioxide 26 (22-29) mmol/L Anion Gap 14 (12-20) BUN 35 H (9-16) mg/dL Creatinine 3.04 H (0.5-1.4) mg/dL Estim Creat Clear Calc 16.4 Estimated GFR 15 Random Glucose 281 H (60-115) mg/dL Lactic Acid (0.5-2.0) mmol/L Calcium 8.4 (8.4-10.2) mg/dL Total Bilirubin 0.3 (0.0-1.0) mg/dL Direct Bilirubin 0.1 (0.0-0.5) mg/dL AST 11 (5-31) U/L ALT 7 (0-31) U/L Alkaline Phosphatase 197 H (39-117) U/L Troponin I High Sens 13.4 (<3.5-17.0) ng/L Total Protein 6.9 (6.5-8.0) g/dL Albumin 3.2 L (3.5-5.0) g/dL Lipase 15 (8-78) U/L Urine Color Urine Appearance Urine pH (5.0-9.0) Ur Specific [place] (1.005-1.025) Urine Protein (Neg-Trace) mg/dL Urine Glucose (UA) (Negative) mg/dL Urine Ketones (Negative) mg/dL Urine Blood (Negative) Urine Nitrite (Negative) Ur Leukocyte Esterase (Negative) Urine RBC (0-2) /HPF Urine WBC (0-5) /HPF Ur Squamous Epith Cells (0-2) /HPF Urine Bacteria (None Seen) Hyaline Casts (0-2) /LPF 03/15/23 03/15/23 Range/Units 18:40 22:15 WBC (4.8-10.8) X10*3/uL RBC (4.20-5.50) X10*6/uL Hgb (12.0-16.0) g/dl Hct (37.0-47.0) % MCV (80.0-98.0) fL MCH (27.0-33.0) pg MCHC (31.0-35.0) g/dl RDW (11.0-16.0) % Plt Count (160-400) X10*3/uL MPV (9.4-12.3) fL Immature Gran % (Auto) (0.0-0.4) % Neut % (Auto) (45-73) % Lymph % (Auto) (20-40) % Wallace % (Auto) (2-11) % Eos % (Auto) (0-4) % Baso % (Auto) (0-2) % Lymph # (Auto) (1.2-4.9) X10*3/uL Wallace # (Auto) (0.1-1.2) X10*3/uL Eos # (Auto) (0.0-0.4) X10*3/uL Baso # (Auto) (0.0-0.2) X10*3/uL Abs Immat Gran (auto) (0.00-0.03) X10*3/uL Absolute Neuts (auto) (2.0-8.3) x10*3/uL Absolute Nucleated RBC (0.0-0.012) X10*3/uL Nucleated RBC % (auto) (0.0-0.2) /100WBC Sodium (135-145) mmol/L Potassium (3.3-5.1) mmol/L Chloride (96-108) mmol/L Carbon Dioxide (22-29) mmol/L Anion Gap (12-20) BUN (9-16) mg/dL Creatinine (0.5-1.4) mg/dL Estim Creat Clear Calc Estimated GFR Random Glucose (60-115) mg/dL Lactic Acid 1.4 (0.5-2.0) mmol/L Calcium (8.4-10.2) mg/dL Total Bilirubin (0.0-1.0) mg/dL Direct Bilirubin (0.0-0.5) mg/dL AST (5-31) U/L ALT (0-31) U/L Alkaline Phosphatase (39-117) U/L Troponin I High Sens (<3.5-17.0) ng/L Total Protein (6.5-8.0) g/dL Albumin (3.5-5.0) g/dL Lipase (8-78) U/L Urine Color Yellow Urine Appearance Turbid Urine pH 6.0 (5.0-9.0) Ur Specific [place] 1.015 (1.005-1.025) Urine Protein >=1000 (4+) H (Neg-Trace) mg/dL Urine Glucose (UA) 500 H (Negative) mg/dL Urine Ketones Negative (Negative) mg/dL Urine Blood Small (1+) H (Negative) Urine Nitrite Negative (Negative) Ur Leukocyte Esterase Moderate (2+) H (Negative) Urine RBC 3-5 H (0-2) /HPF Urine WBC >50 H (0-5) /HPF Ur Squamous Epith Cells 0-2 (0-2) /HPF Urine Bacteria 4+ (None Seen) Hyaline Casts 11-20 (0-2) /LPF Independent Interpretation I performed an independent interpretation of an: Plain X-Ray (Chest:1. Central port catheter tip in superior vena cava at the cavoatrial junction. No pneumothorax. 2. Mild central pulmonary vascular prominence and bronchial wall thickening. 3. Small bilateral pleural effusions.) Radiology Impression Discussion of test interpretation with radiology: I have reviewed the radiologist's reading. Discharge Plan Discharge Clinical Impression: Atypical chest pain, COPD exacerbation Patient Disposition: Home, Self-Care Instructions: COPD (Chronic Obstructive Pulmonary Disease) (ED) Prescriptions: New albuterol sulfate 90 mcg/actuation HFA aerosol inhaler 1 inh inhalation QID PRN (Reason: shortness of breath or wheezing) Qty: 8.5 0RF prednisone 20 mg tablet 20 mg PO BID Qty: 10 0RF No Action carvedilol 6.25 mg tablet 6.25 mg PO BID Qty: 60 5RF Rx Instructions: must administer with a meal/food - Take one tablet twice daily atorvastatin 80 mg tablet 80 mg PO BEDTIME trazodone 50 mg tablet 50 mg PO BEDTIME clopidogrel 75 mg tablet 75 mg PO DAILY aspirin 81 mg tablet,delayed release (DR/EC) 81 mg PO BEDTIME magnesium oxide 400 mg (241.3 mg magnesium) tablet 400 mg PO DAILY insulin glargine [Lantus Solostar U-100 Insulin] 100 unit/mL (3 mL) insulin pen 20 unit subcut DAILY oxycodone 5 mg tablet 5 mg PO Q6H PRN (Reason: pain) Qty: 20 0RF Rx Instructions: Partial Fill upon patient request. amlodipine 10 mg Tablet 10 mg PO DAILY 30 Days Qty: 30 0RF Protocol: Hold for SBP< HOLD for SBP < : 90 sodium bicarbonate 650 mg Tablet 650 mg PO BID 30 Days Qty: 60 0RF ipratropium-albuterol 0.5 mg-3 mg(2.5 mg base)/3 mL Solution For Nebulization 3 ml INHALATION Q4H PRN (Reason: Wheezing) insulin lispro [Humalog U-100 Insulin] 100 unit/mL solution See Protocol subcut QIDACHS Protocol: Insulin Correction Scale Less than or equal to 110 ---- Give (units): 0 111 to 150 Give (units): 0 151 to 200 Give (units): 2 201 to 250 Give (units): 4 251 to 300 Give (units): 6 301 to 350 Give (units): 8 Greater than 350 Give (units): 10 Call MD if Blood Glucose > : 350 Rx Instructions: sliding scale furosemide [Lasix] 40 mg tablet 40 mg PO DAILY Rx Instructions: Please call and schedule cardiology appt. naloxone 0.4 mg/mL Solution 0.4 mg SUBCUT Q3M PRN (Reason: Opioid Overdose) Rx Instructions: NTExceed 10 mg total dose/episode acetaminophen 500 mg Tablet 1,000 mg PO Q6H PRN (Reason: Fever Or Pain) Rx Instructions: do not exceed 3 grams / 24 hours magnesium hydroxide [Milk of Magnesia] 400 mg/5 mL Suspension 30 ml PO DAILY PRN (Reason: Constipation) Rx Instructions: do not administer with dialysis/ renal failure bisacodyl 10 mg Suppository 10 mg MO DAILY PRN (Reason: Constipation) Rx Instructions: use if milk of magnesia ineffective Fleet Enema 19-7 gram/118 mL Enema 118 ml MO DAILY PRN (Reason: Constipation) Rx Instructions: use if Bisacodyl is ineffective bethanechol chloride 25 mg Tablet 25 mg PO BID Qty: 60 0RF Lokelma 10 gram Powder In Packet 10 g PO DAILY Qty: 30 0RF melatonin 3 mg Tablet 3 mg PO BEDTIME pantoprazole 40 mg tablet,delayed release (DR/EC) 40 mg PO DAILY tamsulosin 0.4 mg capsule 0.8 mg PO BEDTIME Referrals: Alexys Avila MD [Primary Care Provider] -
[2023-03-15 18:29] VITALS: BMI 28.4
[2023-03-15] MEDS: Albuterol/Iprat 2.5/0.5MG 3 ML AMPUL.NEB INHALE (18:46)
[2023-03-15] MEDS: Albuterol Sulfate (0.083%) 2.5 MG/3 ML VIAL.NEB 7.5 MG INHALE (18:46)
[2023-03-15] MEDS: methylPREDNISolone Sod Succ 125 MG/2 ML VIAL IVPUSH (18:47)
[2023-03-15 18:48] LABS: MANUAL DIFF FLAG NO
[2023-03-15 18:50] LABS: Basophils Percent Auto 0.4 % (0-2); Eosinophils Absolute Auto 0.3 X10*3/uL (0.0-0.4); Hematocrit 34.8 % (37.0-47.0); Hemoglobin 11.1 g/dl (12.0-16.0); Imm Gran Abs Auto 0.03 X10*3/uL (0.00-0.03); Imm Gran Pct Auto 0.4 % (0.0-0.4); Lymphocytes Absolute Auto 2.4 X10*3/uL (1.2-4.9); Lymphocytes Percent Auto 28.5 % (20-40); Mean Corpuscular HGB Conc 31.9 g/dl (31.0-35.0); Mean Corpuscular Hemoglobin 25.6 pg (27.0-33.0); Mean Corpuscular Volume 80.4 fL (80.0-98.0); Monocytes Absolute Auto 0.6 X10*3/uL (0.1-1.2); Monocytes Percent Auto 6.7 % (2-11); Neutrophils Absolute Auto 5.1 x10*3/uL (2.0-8.3); Platelet Count 206 X10*3/uL (160-400); Red Blood Count 4.33 X10*6/uL (4.20-5.50); Red Cell Distribution Width 14.2 % (11.0-16.0); White Blood Count 8.4 X10*3/uL (4.8-10.8)
[2023-03-15 18:52] VITALS: PULSE 73; RESP 18; O2SAT 99
[2023-03-15 19:00] LABS: Lactic Acid 1.4 mmol/L (0.5-2.0)
[2023-03-15 19:07] LABS: Alanine Aminotransferase 7 U/L (0-31); Albumin Level 3.2 g/dL (3.5-5.0); Alkaline Phosphatase 197 U/L (39-117); Anion Gap 14 (12-20); Aspartate Amino Transferase 11 U/L (5-31); Bilirubin Direct 0.1 mg/dL (0.0-0.5); Bilirubin Total 0.3 mg/dL (0.0-1.0); Blood Urea Nitrogen 35 mg/dL (9-16); Calcium 8.4 mg/dL (8.4-10.2); Carbon Dioxide 26 mmol/L (22-29); Chloride 100 mmol/L (96-108); Creatinine Clr Calc Pharmacy 16.4; Estimated Glomerular Filt Rate 15; Glucose Random 281 mg/dL (60-115); Lipase 15 U/L (8-78); Potassium 4.8 mmol/L (3.3-5.1); Sodium 135 mmol/L (135-145); Total Protein 6.9 g/dL (6.5-8.0)
[2023-03-15 19:14] LABS: Troponin-I High Sensitivity 13.4 ng/L (<3.5-17.0)
[2023-03-15 20:00] VITALS: BP 141/62; PULSE 78; RESP 16; TEMP 36.7; O2SAT 97
--- NOTE | 2023-03-15 21:39 | PC.NURSE ---
Pt stated her breathing feels better. Pt requested to go to the bathroom and was placed on a bedpan. Pt then stated she can't go, but really feels like she has to.
[2023-03-15 21:47] VITALS: BP 121/64; PULSE 77; RESP 20; TEMP 36.7; O2SAT 98
[2023-03-15 22:22] LABS: Appearance Urine Turbid; Color Urine Yellow; Glucose Urine UA 500 mg/dL (Negative); Leukocyte Esterase Urine Moderate (2+) (Negative); Nitrite Urine Negative (Negative); Specific Gravity - Urine 1.015 (1.005-1.025); UMIC TRIGGER UACC YES; Urine Blood Small (1+) (Negative); Urine Ketones Negative (Negative); Urine Protein >=1000 (4+) mg/dL (Neg-Trace)
--- NOTE | 2023-03-15 22:23 | PC.NURSE ---
Addendum entered by Brigida Velasquez RN 03/15/23 22:24: Urines collected and sent to lab Original Note: Pt was straight cathed, tolerated insertion well. output approximately 150mL of clear, yellow urine.
[2023-03-15 22:36] LABS: Bacteria Urine 4+ (None Seen); Squamous Epithelial Cell Urine 0-2 /HPF (0-2); UACC Culture Trigger YES; WBC Urine >50 /HPF (0-5)
[2023-03-16] VITALS: BP 173/77; PULSE 78; RESP 19; TEMP 36.6; O2SAT 100
--- NOTE | 2023-03-16 01:10 | MHC.EDTECH ---
call out to [facility] for transport at 0108, estimated eta given was a little over an hour
== END 2023-03-16 03:40 | disposition home or self-care (01) ==
PROVIDERS: Emergency Provider Emergency Medicine; PCP Internal Medicine
DX: J44.1 Chronic obstructive pulmonary disease with (acute) exacerbation (principal); R07.89 Other chest pain; E11.22 Type 2 diabetes mellitus with diabetic chronic kidney disease; I13.11 Hypertensive heart and chronic kidney disease without heart failure, with stage 5 chronic kidney disease, or end stage renal disease; N18.5 Chronic kidney disease, stage 5; R06.00 Dyspnea, unspecified; Z79.899 Other long term (current) drug therapy
CPT/HCPCS: 36415; 71045; 80048; 80076; 81001; 83605; 83690; 84484; 85025; 87040; 87086; 87088; 87186; 93005; 94640; 96374; 99284; 99285; J2930

== ENCOUNTER 2023-03-16 03:58 | Emergency (ER) | payer OTHER, SELFPAY ==
[2023-03-16 04:11] VITALS: BP 121/64; PULSE 77; RESP 20; O2SAT 98; BMI 28.4
[2023-03-16 04:15] VITALS: BP 121/64; PULSE 77; RESP 20; O2SAT 98
--- NOTE | 2023-03-16 04:46 | ED_ITS ---
HPI - General Adult General Chief complaint: General Medical Stated complaint: ambulance returning Time Seen by Provider: 03/16/23 04:46 Source: patient Mode of arrival: EMS Limitations: no limitations History of Present Illness HPI narrative: 67 yo Cypriot speaking female with history of ESRD on HD M/W/F,? hx CVA, hx LLE BKA, cardiomyopathy, DM, gastroparesis, GERD, PNA, dysphagia, NSTEMI who presents to the ER for shortness of breath and chest pain seen by Dr. Garcia and discharged home after treatment no one at home to open the door the patient brought back to the ER for placement/disposition in a.m. patient missed her dialysis yesterday complaining of shortness of breath saturating 98% room air Related Data Home Medications Medication Instructions Recorded Confirmed aspirin 81 mg tablet,delayed 81 mg PO BEDTIME 06/20/21 02/20/23 release atorvastatin 80 mg tablet 80 mg PO BEDTIME 06/20/21 12/27/22 clopidogrel 75 mg tablet 75 mg PO DAILY 06/20/21 02/20/23 magnesium oxide 400 mg (241.3 mg 400 mg PO DAILY 06/20/21 12/27/22 magnesium) tablet trazodone 50 mg tablet 50 mg PO BEDTIME 06/20/21 12/27/22 insulin glargine 100 unit/mL (3 20 unit subcut DAILY 03/25/22 02/20/23 mL) subcutaneous pen (Lantus Solostar U-100 Insulin) ipratropium 0.5 mg-albuterol 3 mg 3 ml inhalation Q4H PRN Wheezing 05/05/22 0 12/27/22 (2.5 mg base)/3 mL nebulization soln furosemide 40 mg tablet (Lasix) 40 mg PO DAILY 10/14/22 12/27/22 insulin lispro 100 unit/mL See Protocol subcut QIDACHS 10/14/22 02/20/23 subcutaneous solution (Humalog U-100 Insulin) acetaminophen 500 mg tablet 1,000 mg PO Q6H PRN Fever Or Pain 10/15/22 12/27/22 bisacodyl 10 mg rectal suppository 10 mg DC DAILY PRN Constipation 10/15/22 12/27/22 magnesium hydroxide 400 mg/5 mL 30 ml PO DAILY PRN Constipation 10/15/22 12/27/22 oral suspension (Milk of Magnesia) naloxone 0.4 mg/mL injection 0.4 mg subcut Q3M PRN Opioid 10/15/22 12/27/22 solution Overdose sodium phosphates 19 gram-7 118 ml DC DAILY PRN Constipation 10/15/22 12/27/22 gram/118 mL enema (Fleet Enema) melatonin 3 mg tablet 3 mg PO BEDTIME 12/27/22 12/27/22 pantoprazole 40 mg tablet,delayed 40 mg PO DAILY 12/27/22 12/27/22 release tamsulosin 0.4 mg capsule 0.8 mg PO BEDTIME 12/27/22 12/27/22 Previous Rx's Medication Instructions Recorded carvedilol 6.25 mg tablet 6.25 mg PO BID #60 tabs 02/21/22 amlodipine 10 mg tablet 10 mg PO DAILY 30 days #30 tabs 03/03/22 sodium bicarbonate 650 mg tablet 650 mg PO BID 30 days #60 tabs 03/03/22 oxycodone 5 mg tablet 5 mg PO Q6H PRN pain #20 tabs 09/21/22 bethanechol chloride 25 mg tablet 25 mg PO BID #60 tabs 10/19/22 sodium zirconium cyclosilicate 10 10 g PO DAILY #30 ea 10/19/22 gram oral powder packet (Lokelma) albuterol sulfate 90 mcg/actuation 1 inh inhalation QID PRN shortness 03/16/23 aerosol inhaler of breath or wheezing #8.5 grams prednisone 20 mg tablet 20 mg PO BID #10 tabs 03/16/23 Allergies Allergy/AdvReac Type Severity Reaction Status Date / Time latex [LATEX] Allergy Intermediate ITCHY Verified 03/09/23 13:42 Review of Systems Review of Systems: Yes all other systems are reviewed and are negative FORMERLY [facility], [facility] Past Medical History Medical History (Updated 03/16/23 @ 07:05 by Chirag Montes MD) Acute on chronic renal failure Chronic heart failure with preserved ejection fraction (HFpEF) Congestive heart failure Constipation Diabetes mellitus Essential hypertension Gastroparesis GERD (gastroesophageal reflux disease) HLD (hyperlipidemia) Hypomagnesemia Irritable bowel syndrome with diarrhea Ischemic necrosis of finger Non-ST elevated myocardial infarction Nonischemic cardiomyopathy Normocytic anemia Status post amputation of finger Urinary tract infection due to ESBL Klebsiella Surgical History H/O surgical amputation of finger H/O: hysterectomy History of esophagogastroduodenoscopy (EGD) History of intestinal surgery History of laparoscopic cholecystectomy Hx of colonoscopy Hx of eye surgery Family History Family History Father Lung cancer Mother Diabetes HTN (hypertension) Heart disease Sister Diabetes Heart disease Brother Heart disease Son Diabetes Daughter Diabetes Social History Social History Household Members: Other Household Members Other:: SNF Housing: Snf Do you presently have visiting nurse or other home services: No Unable to assess alcohol history related to: Unknown Alcohol intake: never Patient Tobacco Use Status: Never used Tobacco Smoked in Last 30 Days: No Second Hand Smoke Exposure: No Use of substances other than those prescribed or required for medical reasons: No Advance Directives: Yes Advance Directives on File: Yes Advance Directives Date on File: 01/04/23 service: No Current occupational status: disabled Physical Exam ED Vital Signs: Vital Signs - 24 hr 03/16/23 04:11 03/16/23 04:15 03/16/23 06:38 Temperature 97.8 F Pulse Rate 77 77 90 Respiratory Rate 20 20 16 Blood Pressure 121/64 121/64 157/60 H Pulse Oximetry 98 98 96 Oxygen Delivery Method Room Air Room Air Room Air BMI result Body Mass Index 28.4 Appearance: Alert. Oriented X3. No acute distress. Eyes: PERRLA, No Nystagmus ENT: Pharynx normal. Oral Mucosa moist Neck: Normal inspection. Neck supple. CVS: Normal heart rate and rhythm. Pulses normal. Respiratory: No respiratory distress. Equal air entry bilateral, no wheezing/rales/rhonchi Shily catheter on the right svc Abdomen: Soft and nontender. Bowel sounds are present, no mass palpable, no CVA tenderness Skin: Skin warm and dry. Normal skin color. Normal skin turgor. Extremities: Left BKA, bruit present left arm in AV fistula Neuro: Oriented X 3. No motor deficit. Medications Administered Discontinued Medications Generic Name Dose Route Start Last Admin Trade Name Freq PRN Reason Stop Dose Admin Furosemide 60 mg 03/16/23 05:14 03/16/23 05:38 Furosemide 40 Mg Tablet PO 03/16/23 05:15 60 mg ONCE ONE Administration Protocol Medical Decision Making Medical Decision Making [facility] Narrative: Patient returns for unable to stay at home as no one open the door we would like to go back to her home. dialysis but not in significant CHF will give extra dose of Lasix in the ER patient does urinate well chest x-ray was negative for pulmonary edema will get case management involved for helping her returning to her home Discharge Plan Discharge Clinical Impression: End stage renal disease Patient Disposition: Still a Patient Instructions: End Stage Kidney Disease (ED) Additional Instructions: Take medication daily and have dialysis as scheduled tomorrow Prescriptions: No Action carvedilol 6.25 mg tablet 6.25 mg PO BID Qty: 60 5RF Rx Instructions: must administer with a meal/food - Take one tablet twice daily atorvastatin 80 mg tablet 80 mg PO BEDTIME trazodone 50 mg tablet 50 mg PO BEDTIME clopidogrel 75 mg tablet 75 mg PO DAILY aspirin 81 mg tablet,delayed release (DR/EC) 81 mg PO BEDTIME magnesium oxide 400 mg (241.3 mg magnesium) tablet 400 mg PO DAILY insulin glargine [Lantus Solostar U-100 Insulin] 100 unit/mL (3 mL) insulin pen 20 unit subcut DAILY oxycodone 5 mg tablet 5 mg PO Q6H PRN (Reason: pain) Qty: 20 0RF Rx Instructions: Partial Fill upon patient request. amlodipine 10 mg Tablet 10 mg PO DAILY 30 Days Qty: 30 0RF Protocol: Hold for SBP< HOLD for SBP < : 90 sodium bicarbonate 650 mg Tablet 650 mg PO BID 30 Days Qty: 60 0RF ipratropium-albuterol 0.5 mg-3 mg(2.5 mg base)/3 mL Solution For Nebulization 3 ml INHALATION Q4H PRN (Reason: Wheezing) insulin lispro [Humalog U-100 Insulin] 100 unit/mL solution See Protocol subcut QIDACHS Protocol: Insulin Correction Scale Less than or equal to 110 ---- Give (units): 0 111 to 150 Give (units): 0 151 to 200 Give (units): 2 201 to 250 Give (units): 4 251 to 300 Give (units): 6 301 to 350 Give (units): 8 Greater than 350 Give (units): 10 Call MD if Blood Glucose > : 350 Rx Instructions: sliding scale furosemide [Lasix] 40 mg tablet 40 mg PO DAILY Rx Instructions: Please call and schedule cardiology appt. naloxone 0.4 mg/mL Solution 0.4 mg SUBCUT Q3M PRN (Reason: Opioid Overdose) Rx Instructions: NTExceed 10 mg total dose/episode acetaminophen 500 mg Tablet 1,000 mg PO Q6H PRN (Reason: Fever Or Pain) Rx Instructions: do not exceed 3 grams / 24 hours magnesium hydroxide [Milk of Magnesia] 400 mg/5 mL Suspension 30 ml PO DAILY PRN (Reason: Constipation) Rx Instructions: do not administer with dialysis/ renal failure bisacodyl 10 mg Suppository 10 mg DC DAILY PRN (Reason: Constipation) Rx Instructions: use if milk of magnesia ineffective Fleet Enema 19-7 gram/118 mL Enema 118 ml DC DAILY PRN (Reason: Constipation) Rx Instructions: use if Bisacodyl is ineffective bethanechol chloride 25 mg Tablet 25 mg PO BID Qty: 60 0RF Lokelma 10 gram Powder In Packet 10 g PO DAILY Qty: 30 0RF albuterol sulfate 90 mcg/actuation HFA aerosol inhaler 1 inh inhalation QID PRN (Reason: shortness of breath or wheezing) Qty: 8.5 0RF prednisone 20 mg tablet 20 mg PO BID Qty: 10 0RF melatonin 3 mg Tablet 3 mg PO BEDTIME pantoprazole 40 mg tablet,delayed release (DR/EC) 40 mg PO DAILY tamsulosin 0.4 mg capsule 0.8 mg PO BEDTIME
[2023-03-16] MEDS: Furosemide 40 MG TABLET 60 MG PO (05:38)
[2023-03-16 06:38] VITALS: BP 157/60; PULSE 90; RESP 16; TEMP 36.6; O2SAT 96
== END 2023-03-16 08:49 | disposition home or self-care (01) ==
PROVIDERS: Emergency Provider Internal Medicine
DX: E11.22 Type 2 diabetes mellitus with diabetic chronic kidney disease (principal); Z79.899 Other long term (current) drug therapy; Z79.4 Long term (current) use of insulin
CPT/HCPCS: 99283; 99284

== ENCOUNTER 2023-03-30 22:09 | Inpatient (IN) | payer OTHER, SELFPAY ==
--- NOTE | ~2023-03-30 | XR_ITS ---
EXAMINATION: XR CHEST CLINICAL INFORMATION: Shortness of breath COMPARISON: None available. TECHNIQUE: Frontal view of the chest was obtained. FINDINGS: The lungs are expanded and clear of pneumonic infiltrate. There is bilateral pleural effusions with blunting of CP angles. The heart size is borderline enlarged with bilateral increased pulmonary vascularity suggestive of mild CHF or volume overload. There is a right sided permacatheter with its tip in the distal SVC. No gross bony abnormality seen. XR/XR chest 1V IMPRESSION: 1. Bilateral pleural effusions. 2. Suspect mild CHF or volume overload. 3. Right permacatheter is in distal SVC. Cardiomegaly with mild congestion. 4. Bilateral small pleural effusions. 5. Right central venous catheter tip remains in mid SVC,. There is ready for use.
[2023-03-30 22:17] VITALS: BP 178/70; PULSE 76; RESP 15; TEMP 36.7; O2SAT 99
[2023-03-30 22:24] VITALS: BP 166/109; PULSE 91; O2SAT 100
--- NOTE | 2023-03-30 22:24 | ECG_ITS ---
Test Reason : SOB Blood Pressure : / mmHG Vent. Rate : 075 BPM Atrial Rate : 075 BPM P-R Int : 160 ms QRS Dur : 126 ms QT Int : 446 ms P-R-T Axes : 041 -01 216 degrees QTc Int : 498 ms Normal sinus rhythm Left bundle branch block Abnormal ECG When compared with ECG of 15-MAR-2023 18:21, Left bundle branch block is now Present Referred By: Maureen Young Electronically Signed By:Nik Lou
[2023-03-30 22:39] VITALS: BP 178/70; PULSE 72; RESP 20; O2SAT 99; BMI 31.8
[2023-03-30 23:10] LABS: Basophils Percent Auto 0.2 % (0-2); Imm Gran Abs Auto 0.05 X10*3/uL (0.00-0.03); Imm Gran Pct Auto 0.5 % (0.0-0.4); Monocytes Absolute Auto 0.7 X10*3/uL (0.1-1.2); PLT CLUMP 1; Red Cell Distribution Width 14.3 % (11.0-16.0); SCAN SMEAR FLAG 1
[2023-03-30 23:12] LABS: Eosinophils Absolute Auto 0.2 X10*3/uL (0.0-0.4); Hematocrit 30.6 % (37.0-47.0); Hemoglobin 9.6 g/dl (12.0-16.0); Lymphocytes Absolute Auto 1.9 X10*3/uL (1.2-4.9); Lymphocytes Percent Auto 19.4 % (20-40); Mean Corpuscular HGB Conc 31.4 g/dl (31.0-35.0); Mean Corpuscular Hemoglobin 25.3 pg (27.0-33.0); Mean Corpuscular Volume 80.5 fL (80.0-98.0); Mean Platelet Volume 11.7 fL (9.4-12.3); Monocytes Percent Auto 6.8 % (2-11); Neutrophils Percent Auto 71.1 % (45-73)
[2023-03-30 23:14] LABS: Venous Blood Gas Refer to POC result
[2023-03-30 23:15] LABS: VBG Base Excess 5.3 mmol/L; VBG HCO3 30 mmol/L (22-26); VBG pCO2 48 mmHg; VBG pH 7.41 (7.32-7.43); VBG pO2 37 mmHg
[2023-03-30 23:16] LABS: MANUAL DIFF FLAG NO; Platelet Count 119 X10*3/uL (160-400); Prothrombin Time 11.7 SEC (10.0-13.1); White Blood Count 9.6 X10*3/uL (4.8-10.8)
[2023-03-30 23:31] LABS: Troponin-I High Sensitivity 23.7 ng/L (<3.5-17.0)
[2023-03-30 23:33] LABS: Alanine Aminotransferase 6 U/L (0-31); Albumin Level 2.9 g/dL (3.5-5.0); Alkaline Phosphatase 179 U/L (39-117); Anion Gap 12 (12-20); Aspartate Amino Transferase 7 U/L (5-31); Bilirubin Total 0.3 mg/dL (0.0-1.0); Blood Urea Nitrogen 22 mg/dL (9-16); Calcium 8.2 mg/dL (8.4-10.2); Carbon Dioxide 26 mmol/L (22-29); Chloride 99 mmol/L (96-108); Creatinine Clr Calc Pharmacy 19.3; Estimated Glomerular Filt Rate 22; Glucose Random 385 mg/dL (60-115); Potassium 4.3 mmol/L (3.3-5.1); Sodium 133 mmol/L (135-145)
--- NOTE | 2023-03-30 23:44 | ED_ITS ---
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 Related Data Home Medications Medication Instructions Recorded Confirmed aspirin 81 mg tablet,delayed 81 mg PO BEDTIME 06/20/21 02/20/23 release atorvastatin 80 mg tablet 80 mg PO BEDTIME 06/20/21 12/27/22 clopidogrel 75 mg tablet 75 mg PO DAILY 06/20/21 02/20/23 magnesium oxide 400 mg (241.3 mg 400 mg PO DAILY 06/20/21 12/27/22 magnesium) tablet trazodone 50 mg tablet 50 mg PO BEDTIME 06/20/21 12/27/22 insulin glargine 100 unit/mL (3 20 unit subcut DAILY 03/25/22 02/20/23 mL) subcutaneous pen (Lantus Solostar U-100 Insulin) ipratropium 0.5 mg-albuterol 3 mg 3 ml inhalation Q4H PRN Wheezing 05/05/22 12/27/22 (2.5 mg base)/3 mL nebulization soln furosemide 40 mg tablet (Lasix) 40 mg PO DAILY 10/14/22 12/27/22 insulin lispro 100 unit/mL See Protocol subcut QIDACHS 10/14/22 02/20/23 subcutaneous solution (Humalog U-100 Insulin) acetaminophen 500 mg tablet 1,000 mg PO Q6H PRN Fever Or Pain 10/15/22 12/27/22 bisacodyl 10 mg rectal suppository 10 mg NM DAILY PRN Constipation 10/15/22 magnesium hydroxide 400 mg/5 mL 30 ml PO DAILY PRN Constipation 10/15/22 12/27/22 oral suspension (Milk of Magnesia) naloxone 0.4 mg/mL injection 0.4 mg subcut Q3M PRN Opioid 10/15/22 12/27/22 solution Overdose sodium phosphates 19 gram-7 118 ml NM DAILY PRN Constipation 10/15/22 12/27/22 gram/118 mL enema (Fleet Enema) melatonin 3 mg tablet 3 mg PO BEDTIME 12/27/22 12/27/22 pantoprazole 40 mg tablet,delayed 40 mg PO DAILY 12/27/22 12/27/22 release tamsulosin 0.4 mg capsule 0.8 mg PO BEDTIME 12/27/22 12/27/22 Previous Rx's Medication Instructions Recorded carvedilol 6.25 mg tablet 6.25 mg PO BID #60 tabs 02/21/22 amlodipine 10 mg tablet 10 mg PO DAILY 30 days #30 tabs 03/03/22 sodium bicarbonate 650 mg tablet 650 mg PO BID 30 days #60 tabs 03/03/22 oxycodone 5 mg tablet 5 mg PO Q6H PRN pain #20 tabs 09/21/22 bethanechol chloride 25 mg tablet 25 mg PO BID #60 tabs 10/19/22 sodium zirconium cyclosilicate 10 10 g PO DAILY #30 ea 10/19/22 gram oral powder packet (Lokelma) albuterol sulfate 90 mcg/actuation 1 inh inhalation QID PRN shortness 03/16/23 aerosol inhaler of breath or wheezing #8.5 grams prednisone 20 mg tablet 20 mg PO BID #10 tabs 03/16/23 cephalexin 500 mg capsule 500 mg PO BID #14 caps 03/19/23 Allergies Allergy/AdvReac Type Severity Reaction Status Date / Time latex [LATEX] Allergy Intermediate ITCHY Verified 03/09/23 13:42 Review of Systems Review of Systems: Pertinent positives and negatives as stated in HPI [facility] Past Medical History Source: nursing notes reviewed Medical History Acute on chronic renal failure Chronic heart failure with preserved ejection fraction (HFpEF) Congestive heart failure Constipation Diabetes mellitus Essential hypertension Gastroparesis GERD (gastroesophageal reflux disease) HLD (hyperlipidemia) Hypomagnesemia Irritable bowel syndrome with diarrhea Ischemic necrosis of finger Non-ST elevated myocardial infarction Nonischemic cardiomyopathy Normocytic anemia Status post amputation of finger Urinary tract infection due to ESBL Klebsiella Surgical History H/O surgical amputation of finger H/O: hysterectomy History of esophagogastroduodenoscopy (EGD) History of intestinal surgery History of laparoscopic cholecystectomy Hx of colonoscopy Hx of eye surgery Family History Family History Father Lung cancer Mother Diabetes HTN (hypertension) Heart disease Sister Diabetes Heart disease Brother Heart disease Son Diabetes Daughter Diabetes Social History Social History Household Members: Other Household Members Other:: SNF Housing: Group Home Do you presently have visiting nurse or other home services: No Unable to assess alcohol history related to: Unknown Alcohol intake: never Patient Tobacco Use Status: Never used Tobacco Second Hand Smoke Exposure: No Advance Directives: Yes Advance Directives on File: Yes Advance Directives Date on File: 01/04/23 service: No Current occupational status: disabled Physical Exam Vital Signs: Vital Signs: Last Vital Signs Temp 98.1 F 03/30/23 22:17 Pulse 72 03/30/23 22:39 Resp 20 03/30/23 22:39 BP 178/70 H 03/30/23 22:39 Pulse Ox 99 03/30/23 22:39 O2 Del Method Room Air 03/30/23 22:39 BMI result Body Mass Index 31.8 VITAL SIGNS: Reviewed. GENERAL: Well developed, well nourished, in no acute distress. HEAD: Normocephalic/atraumatic EYES: PERRLA, EOMI EARS: Ext canals without abnormality NOSE: Nares patent bilateral OROPHARYNX: no oral lesions noted, posterior pharynx clear NECK: Supple, no adenopathy LUNGS: Bibasilar rales, decreased breath sounds, tachypnea SpO2<99> on room air CARDIOVASCULAR: Regular rate and rhythm without noted murmurs, no JVD but 2+ lower extremity edema ABDOMEN: Soft, non-tender, non-distended with bowel sounds. No rigidity. No guarding. No palpable masses or hernias noted MUSCULOSKELETAL: No tenderness, deformities, or effusions noted on gross inspection. EXTREMITIES: No cyanosis, clubbing or edema; LLE: BKA RLE: 2+ pitting edema. SKIN: Inspection of the skin reveals no rashes NEUROLOGIC: Alert and oriented x 4. Strength and sensation to light touch were grossly intact x 4. Medications Administered Discontinued Medications Generic Name Dose Route Start Last Admin Trade Name Freq PRN Reason Stop Dose Admin Furosemide 60 mg 03/30/23 23:45 03/31/23 00:08 Furosemide 100 Mg/10 Ml Vial IVPUSH 03/30/23 23:46 60 mg ONCE ONE Administration Protocol Insulin Human Lispro 5 unit 03/31/23 00:06 03/31/23 00:12 Insulin Lispro 100 Unit/Ml 3 Ml Vial SUBCUT 03/31/23 00:07 5 unit ONCE ONE Administration Medical Decision Making Medical Decision Making MDM Narrative: 68-year-old female with history and clinical presentation DDX: Chronic lung disease, CHF exacerbation, pneumonia, ACS I reviewed all investigations and my interpretation is this patient has CHF exacerbation. On review of hematologic results patient's anemia is associated with being fluid overload but also chronic in nature. There is no history of hematemesis or melena/hematochezia. VBG does not demonstrate any hypercapnic state nor does it demonstrate respiratory acidosis. Patient noted to be mildly hyperglycemic and received 5 units subcutaneous list pro, renal function is chronically stable BNP in addition to clinical findings and patient's history consistent with CHF exacerbation, this was further corroborated by chest x-ray findings which also demonstrated bilateral pleural effusions. Patient received 60 mg of IV Lasix is not noted to be hypoxic. I then discussed this with the inpatient hospitalist who accepts admission. Suspect that the mild bump in patient's troponin is demand in nature as there are no acute EKG changes and patient did not endorse chest pain. Differential Diagnosis Please see the discussion above Admission/Observation Consideration of admission/observation: Escalation of care including admission/observation considered Consult Healthcare Provider Management of the patient was discussed with: Hospitalist Please see the discussion above Lab Data Please see the discussion above 03/30/23 23:06 03/30/23 23:06 Labs: Lab Results 03/30/23 03/30/23 03/30/23 Range/Units 23:06 23:06 23:06 WBC 9.6 (4.8-10.8) X10*3/uL RBC 3.80 L (4.20-5.50) X10*6/uL Hgb 9.6 L (12.0-16.0) g/dl Hct 30.6 L (37.0-47.0) % MCV 80.5 (80.0-98.0) fL MCH 25.3 L (27.0-33.0) pg MCHC 31.4 (31.0-35.0) g/dl RDW 14.3 (11.0-16.0) % Plt Count 119 L D (160-400) X10*3/uL MPV 11.7 (9.4-12.3) fL Immature Gran % (Auto) 0.5 H (0.0-0.4) % Neut % (Auto) 71.1 (45-73) % Lymph % (Auto) 19.4 L (20-40) % [place] % (Auto) 6.8 (2-11) % Eos % (Auto) 2.0 (0-4) % Baso % (Auto) 0.2 (0-2) % Lymph # (Auto) 1.9 (1.2-4.9) X10*3/uL [place] # (Auto) 0.7 (0.1-1.2) X10*3/uL Eos # (Auto) 0.2 (0.0-0.4) X10*3/uL Baso # (Auto) 0.0 (0.0-0.2) X10*3/uL Abs Immat Gran (auto) 0.05 H (0.00-0.03) X10*3/uL Absolute Neuts (auto) 7.0 (2.0-8.3) x10*3/uL Absolute Nucleated RBC 0.000 (0.0-0.012) X10*3/uL Nucleated RBC % (auto) 0.0 (0.0-0.2) /100WBC PT (10.0-13.1) SEC INR (0.9-1.1) VBG pH (7.32-7.43) VBG pCO2 mmHg VBG pO2 mmHg VBG HCO3 (22-26) mmol/L VBG O2 Saturation % VBG Base Excess mmol/L Sodium 133 L (135-145) mmol/L Potassium 4.3 (3.3-5.1) mmol/L Chloride 99 (96-108) mmol/L Carbon Dioxide 26 (22-29) mmol/L Anion Gap 12 (12-20) BUN 22 H (9-16) mg/dL Creatinine 2.23 H (0.5-1.4) mg/dL Estim Creat Clear Calc 19.3 Estimated GFR 22 Random Glucose 385 H* (60-115) mg/dL Calcium 8.2 L (8.4-10.2) mg/dL Total Bilirubin 0.3 (0.0-1.0) mg/dL AST 7 (5-31) U/L ALT 6 (0-31) U/L Alkaline Phosphatase 179 H (39-117) U/L Troponin I High Sens (<3.5-17.0) ng/L B-Natriuretic Peptide 2701 H (<100) pg/mL Total Protein 6.0 L (6.5-8.0) g/dL Albumin 2.9 L (3.5-5.0) g/dL 03/30/23 03/30/23 03/30/23 Range/Units 23:06 23:06 23:07 WBC (4.8-10.8) X10*3/uL RBC (4.20-5.50) X10*6/uL Hgb (12.0-16.0) g/dl Hct (37.0-47.0) % MCV (80.0-98.0) fL MCH (27.0-33.0) pg MCHC (31.0-35.0) g/dl RDW (11.0-16.0) % Plt Count (160-400) X10*3/uL MPV (9.4-12.3) fL Immature Gran % (Auto) (0.0-0.4) % Neut % (Auto) (45-73) % Lymph % (Auto) (20-40) % [place] % (Auto) (2-11) % Eos % (Auto) (0-4) % Baso % (Auto) (0-2) % Lymph # (Auto) (1.2-4.9) X10*3/uL [place] # (Auto) (0.1-1.2) X10*3/uL Eos # (Auto) (0.0-0.4) X10*3/uL Baso # (Auto) (0.0-0.2) X10*3/uL Abs Immat Gran (auto) (0.00-0.03) X10*3/uL Absolute Neuts (auto) (2.0-8.3) x10*3/uL Absolute Nucleated RBC (0.0-0.012) X10*3/uL Nucleated RBC % (auto) (0.0-0.2) /100WBC PT 11.7 (10.0-13.1) SEC INR 1.0 (0.9-1.1) VBG pH 7.41 (7.32-7.43) VBG pCO2 48 mmHg VBG pO2 37 mmHg VBG HCO3 30 H (22-26) mmol/L VBG O2 Saturation 61.0 % VBG Base Excess 5.3 mmol/L Sodium (135-145) mmol/L Potassium (3.3-5.1) mmol/L Chloride (96-108) mmol/L Carbon Dioxide (22-29) mmol/L Anion Gap (12-20) BUN (9-16) mg/dL Creatinine (0.5-1.4) mg/dL Estim Creat Clear Calc Estimated GFR Random Glucose (60-115) mg/dL Calcium (8.4-10.2) mg/dL Total Bilirubin (0.0-1.0) mg/dL AST (5-31) U/L ALT (0-31) U/L Alkaline Phosphatase (39-117) U/L Troponin I High Sens 23.7 H D (<3.5-17.0) ng/L B-Natriuretic Peptide (<100) pg/mL Total Protein (6.5-8.0) g/dL Albumin (3.5-5.0) g/dL Independent Interpretation I performed an independent interpretation of an: EKG Interpretation: Normal sinus rhythm, LBBB at baseline, HR-75, NM within normal limits, QTC mildly prolonged at 498, there are no significant changes when compared to prior EKG from 03/15/2023. Radiology Impression Radiologist Impression: Demonstrates CHF, otherwise my interpretation is in agreement with radiology's impression. Chronic Conditions Patient?s care impacted by: Diabetes and Hypertension Critical Care Time Critical Care Time Critical Care Time: Yes Total Critical Care Time: 45 Attestation: I personally attest to this time spent taking care of the patient. Discharge Plan Discharge Clinical Impression: Bilateral pleural effusion, CHF exacerbation, Elevated troponin Patient Disposition: Admitted As Inpatient
[2023-03-30 23:45] LABS: B Type Natriuretic Peptide 2701 pg/mL (<100)
[2023-03-31] VITALS (7 sets, daily range): BP systolic 126–195; BP diastolic 61–85; PULSE 63–78; RESP 17–20; TEMP 36–36.9; O2SAT 96–100; BMI 33.4
--- NOTE | 2023-03-31 | ECG_ITS ---
Test Reason : chest pain Blood Pressure : / mmHG Vent. Rate : 075 BPM Atrial Rate : 075 BPM P-R Int : 164 ms QRS Dur : 124 ms QT Int : 464 ms P-R-T Axes : 054 030 228 degrees QTc Int : 518 ms Sinus rhythm with Premature atrial complexes with Aberrant conduction Left bundle branch block Abnormal ECG When compared with ECG of 30-MAR-2023 22:27, Aberrant conduction is now Present Referred By: Jakub Rodriguez Electronically Signed By:Nik Lou
[2023-03-31] MEDS: Furosemide 100 MG/10 ML VIAL 60 MG IVPUSH (00:08)
[2023-03-31] MEDS: Insulin Lispro 100 UNIT/ML 3 ML VIAL SUBCUT ×5 (00:12→20:07)
--- NOTE | 2023-03-31 00:33 | P.HPHOSP_ITS ---
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 Patient reports her symptoms started today, she has a difficult time catching her breath, has a cough that is nonproductive, has orthopnea and PND, has right lower extremity edema. Denies any fever, no chills, no chest pain, palpitations, has some epigastric burning sensation, otherwise no nausea or vomiting, no diarrhea constipation, no urinary symptoms. On arrival to the ED patient found to have slightly elevated blood pressure but otherwise stable Labs are significant for hemoglobin of 9.6 which is close to her baseline, platelet counts of 119, creatinine of 2. 2 3, BNP of 2701, troponin of 23, Chest x-ray shows CHF patient started on Lasix and will be admitted for further management Review of Systems Review of Systems: Yes all other systems are reviewed and are negative [facility] Medical History Acute on chronic renal failure Chronic heart failure with preserved ejection fraction (HFpEF) Congestive heart failure Constipation Diabetes mellitus Essential hypertension Gastroparesis GERD (gastroesophageal reflux disease) HLD (hyperlipidemia) Hypomagnesemia Irritable bowel syndrome with diarrhea Ischemic necrosis of finger Non-ST elevated myocardial infarction Nonischemic cardiomyopathy Normocytic anemia Status post amputation of finger Urinary tract infection due to ESBL Klebsiella Family History Father Lung cancer Mother Diabetes HTN (hypertension) Heart disease Sister Diabetes Heart disease Brother Heart disease Son Diabetes Daughter Diabetes Surgical History H/O surgical amputation of finger H/O: hysterectomy History of esophagogastroduodenoscopy (EGD) History of intestinal surgery History of laparoscopic cholecystectomy Hx of colonoscopy Hx of eye surgery Social History Household Members: Other Household Members Other:: SNF Housing: Intermediate Do you presently have visiting nurse or other home services: No Unable to assess alcohol history related to: Unknown Alcohol intake: never Patient Tobacco Use Status: Never used Tobacco Second Hand Smoke Exposure: No Advance Directives: Yes Advance Directives on File: Yes Advance Directives Date on File: 01/04/23 service: No Current occupational status: disabled Meds Allergies Allergy/AdvReac Type Severity Reaction Status Date / Time latex [LATEX] Allergy Intermediate ITCHY Verified 03/09/23 13:42 Active Medications: Current Medications Pharmacy Consult (Consult Rx Perform Med Rec) 1 each MISCELLANE ONCE PRN PRN Reason: Consult order Home Medications Medication Instructions Recorded Confirmed Last Taken Type aspirin 81 mg tablet,delayed 81 mg PO BEDTIME 06/20/21 03/31/23 02/19/23 History release atorvastatin 80 mg tablet 80 mg PO BEDTIME 06/20/21 03/31/23 10/13/22 History clopidogrel 75 mg tablet 75 mg PO DAILY 06/20/21 03/31/23 02/19/23 History magnesium oxide 400 mg (241.3 mg 400 mg PO DAILY 06/20/21 03/31/23 10/14/22 History magnesium) tablet trazodone 50 mg tablet 50 mg PO BEDTIME 06/20/21 03/31/23 10/13/22 History insulin glargine 100 unit/mL (3 20 unit subcut DAILY 03/25/22 03/31/23 02/19/23 20:00 History mL) subcutaneous pen (Lantus 20 units Solostar U-100 Insulin) ipratropium 0.5 mg-albuterol 3 mg 3 ml inhalation Q4H PRN Wheezing 05/05/22 12/27/22 Unknown History (2.5 mg base)/3 mL nebulization soln furosemide 40 mg tablet (Lasix) 40 mg PO DAILY 10/14/22 03/31/23 10/14/22 History insulin lispro 100 unit/mL See Protocol subcut QIDACHS 10/14/22 02/20/23 02/19/23 History subcutaneous solution (Humalog U-100 Insulin) acetaminophen 500 mg tablet 1,000 mg PO Q6H PRN Fever Or Pain 10/15/22 12/27/22 Unknown History bisacodyl 10 mg rectal suppository 10 mg TN DAILY PRN Constipation 10/15/22 12/27/22 Unknown History magnesium hydroxide 400 mg/5 mL 30 ml PO DAILY PRN Constipation 10/15/22 12/27/22 Unknown History oral suspension (Milk of Magnesia) naloxone 0.4 mg/mL injection 0.4 mg subcut Q3M PRN Opioid 10/15/22 12/27/22 Unknown History solution Overdose sodium phosphates 19 gram-7 118 ml TN DAILY PRN Constipation 10/15/22 12/27/22 Unknown History gram/118 mL enema (Fleet Enema) melatonin 3 mg tablet 3 mg PO BEDTIME 12/27/22 12/27/22 Unknown History pantoprazole 40 mg tablet,delayed 40 mg PO DAILY 12/27/22 12/27/22 Unknown History release tamsulosin 0.4 mg capsule 0.8 mg PO BEDTIME 12/27/22 12/27/22 Unknown History Physical Exam Vital Signs and Narrative: Vital Signs: Last Vital Signs Temp 98.1 F 03/30/23 22:17 Pulse 72 03/30/23 22:39 Resp 20 03/30/23 22:39 BP 178/70 H 03/30/23 22:39 Pulse Ox 99 03/30/23 22:39 O2 Del Method Room Air 03/30/23 22:39 BMI result Body Mass Index 31.8 Const: General: cooperative and no acute distress Orientation/consciousness: patient oriented x3 Eyes: General: appearance normal, both eyes and all related structures Resp: Effort & Inspection: normal respiratory effort Auscultation: clear to auscultation bilaterally Cardio: Rate: regular rate Rhythm: regular rhythm GI: Palpation (GI): Soft to palpation Auscultation: normal bowel sounds Skin: General skin exam: no rashes or lesions noted Neuro: General: patient oriented x3 Cognition (Neuro): normal cognition Extrem: Other: left BKA Right lower extremity 2+ pedal edema has an amputated finger on the left and right head Results Labs 03/30/23 23:06 03/30/23 23:06 Labs: Laboratory Results - last 24 hr 03/30/23 03/30/23 03/30/23 23:06 23:06 23:06 MCV 80.5 MCH 25.3 L MCHC 31.4 RDW 14.3 Plt Count 119 L D MPV 11.7 Immature Gran % (Auto) 0.5 H Neut % (Auto) 71.1 Lymph % (Auto) 19.4 L [place] % (Auto) 6.8 Eos % (Auto) 2.0 Baso % (Auto) 0.2 Lymph # (Auto) 1.9 [place] # (Auto) 0.7 Eos # (Auto) 0.2 Baso # (Auto) 0.0 Abs Immat Gran (auto) 0.05 H Absolute Neuts (auto) 7.0 Absolute Nucleated RBC 0.000 Nucleated RBC % (auto) 0.0 PT INR VBG pH VBG pCO2 VBG pO2 VBG HCO3 VBG O2 Saturation VBG Base Excess Anion Gap 12 Estim Creat Clear Calc 19.3 Estimated GFR 22 Random Glucose 385 H* Calcium 8.2 L Total Bilirubin 0.3 AST 7 ALT 6 Alkaline Phosphatase 179 H Troponin I High Sens B-Natriuretic Peptide 2701 H Total Protein 6.0 L Albumin 2.9 L 03/30/23 03/30/23 03/30/23 23:06 23:06 23:07 MCV MCH MCHC RDW Plt Count MPV Immature Gran % (Auto) Neut % (Auto) Lymph % (Auto) [place] % (Auto) Eos % (Auto) Baso % (Auto) Lymph # (Auto) [place] # (Auto) Eos # (Auto) Baso # (Auto) Abs Immat Gran (auto) Absolute Neuts (auto) Absolute Nucleated RBC Nucleated RBC % (auto) PT 11.7 INR 1.0 VBG pH 7.41 VBG pCO2 48 VBG pO2 37 VBG HCO3 30 H VBG O2 Saturation 61.0 VBG Base Excess 5.3 Anion Gap Estim Creat Clear Calc Estimated GFR Random Glucose Calcium Total Bilirubin AST ALT Alkaline Phosphatase Troponin I High Sens 23.7 H D B-Natriuretic Peptide Total Protein Albumin Imaging Radiologist's Impressions: Impressions Chest X-Ray 03/30/23 22:28 IMPRESSION: 1. Bilateral pleural effusions. 2. Suspect mild CHF or volume overload. 3. Right permacatheter is in distal SVC. Cardiomegaly with mild congestion. 4. Bilateral small pleural effusions. 5. Right central venous catheter tip remains in mid SVC,. There is ready for use. Assessment and Plan (1) CHF exacerbation: Status: Acute (2) CKD (chronic kidney disease) stage 4, GFR 15-29 ml/min: Status: Acute (3) Bilateral pleural effusion: Status: Acute (4) Elevated troponin: Status: Acute (5) Thrombocytopenia: Status: Acute Plan 68-year-old female past medical history of CHF with preserved ejection fraction presents the hospital with complaints of shortness of breath found to be in CHF exacerbation # acute CHF exacerbation - has pleural effusions, on chest x-ray, has dyspnea, orthopnea, PND, lower extremity edema, as well as elevated BNP - will treat with IV Lasix, strict I&O, daily weight, low-sodium diet - monitor BMP # CKD stage 4 - around her baseline - follow BMP now that she is on Lasix # elevated troponin - likely type 2 in the setting of CHF - denies any chest pain - there are EKG changes are present in the past, with no new changes - trend - continue aspirin, statin, carvedilol, Plavix # acute on chronic normocytic anemia - will obtain occult stool blood - follow CBC # thrombocytopenia - new as compared to previous labs - follow CBC # diabetes - low-dose sliding scale insulin - continue home insulin - diabetic diet # HTN - elevated - continue home antihypertensives DVT prophylaxis: Heparin subQ Given patient's need for IV Lasix patient require minimum 2 nights inpatient hospital stay for further management and monitoring Time Spent With Patient Time: Total time managing care of this patient today ____ minutes. Quality Stroke Does the patient have a stroke diagnosis?: No VTE Prior VTE?: No VTE Risk Level:: Medical - moderate - high VTE Device Contraindication: Treatment Not Indicated VTE Drug Contraindication: N/A - Med Ordered
[2023-03-31] MEDS: Heparin Sodium,Porcine 5,000 UNIT/ML VIAL 5000 UNIT SUBCUT ×2 (03:11→12:22)
[2023-03-31 06:10] LABS: Alanine Aminotransferase 5 U/L (0-31); Albumin Level 2.9 g/dL (3.5-5.0); Alkaline Phosphatase 157 U/L (39-117); Anion Gap 14 (12-20); Aspartate Amino Transferase 7 U/L (5-31); Bilirubin Total 0.3 mg/dL (0.0-1.0); Blood Urea Nitrogen 23 mg/dL (9-16); Calcium 8.4 mg/dL (8.4-10.2); Carbon Dioxide 25 mmol/L (22-29); Chloride 103 mmol/L (96-108); Creatinine Clr Calc Pharmacy 17.9; Estimated Glomerular Filt Rate 19; Glucose Random 178 mg/dL (60-115); Potassium 4.3 mmol/L (3.3-5.1); Sodium 138 mmol/L (135-145); Total Protein 5.9 g/dL (6.5-8.0)
[2023-03-31 07:55] LABS: Glucose, Whole Blood 154 mg/dL (60-115)
[2023-03-31] MEDS: Furosemide 40 MG/4 ML VIAL IVPUSH ×2 (08:01→17:17)
[2023-03-31] MEDS: 0.9 % Sodium Chloride Flush 3 ML SYRINGE IVFLUSH ×3 (08:02→20:07)
[2023-03-31 08:06] LABS: Troponin-I High Sensitivity 24.8 ng/L (<3.5-17.0)
--- NOTE | 2023-03-31 08:23 | PHA.MEDREC ---
Pharmacy Consult ? Medication Reconciliation Pharmacy has completed the medication reconciliation. Patient does not know what medications she is taking. I called [facility] and spoke to pharmacist there. Patient was scene recently there, and med list was updated by their resident. Per provider notes, patient IS still on bethanecol, protonix, and tamsulosin. Tamsulosin is 2 caps at bedtime [facility]
--- NOTE | 2023-03-31 10:14 | MHC.CM.PN ---
Patient lives with her Daughter/HCP and home/resume [facility] services is the tentative plan.CM has initiated and will follow for dc planning. HD is at [facility] M/W/F. IMM addressed.Patient is Bruno león'ubaldo x3.
[2023-03-31] MEDS: Nitroglycerin 0.4 MG TAB.SUBL SUBLINGUAL (11:15)
[2023-03-31 11:26] LABS: Glucose, Whole Blood 253 mg/dL (60-115)
--- NOTE | 2023-03-31 12:49 | HO.PM.IMPN ---
Subjective Subjective Date of Service: 03/31/23 Interval History: Seen and evaluated complained of chest pain this morning BP elevated weaning down O2 supplement no other overnight events Review of Systems Review of Systems: Yes all other systems are reviewed and are negative Physical Exam Vital Signs: Vital Signs: Last Vital Signs Temp 96.9 F 03/31/23 10:49 Pulse 69 03/31/23 11:30 Resp 18 03/31/23 11:30 BP 151/62 H 03/31/23 11:30 Pulse Ox 99 03/31/23 11:30 O2 Del Method Room Air 03/31/23 11:30 BMI result Body Mass Index 33.4 Const: Other: Constitutional : Awake, interactive, not in distress Neck : Normal inspection, Supple Cardiovascular : RRR, no JVP, no lower extremity edema Respiratory : good bilateral air entry, basal fine crackles, wheezes or rhonchi Gastrointestinal: soft, lax, Normal bowel sounds, Non tender Skin : Warm, Dry, PErnacath in placed, no erythema or drainage Extremities: LLE below knee amputation Neurological : Alert & oriented x3, No focal deficit Objective Data Active Medications Acetaminophen (Acetaminophen 325 Mg Tablet) 650 mg PO Q6H PRN PRN Reason: Pain, Mild (Pain Scale 1-3) Dextrose (Dextrose 50 % 25 Gm/50 Ml Syringe) 25 gm IVPUSH Q15M PRN; Protocol PRN Reason: per Hypoglycemia Standing Ord. Docusate Sodium (Docusate Sodium 100 Mg Capsule) 100 mg PO DAILY PRN PRN Reason: Constipation Furosemide (Furosemide 40 Mg/4 Ml Vial) 40 mg IVPUSH BID@0900,1800 [facility]; Protocol Last Admin: 03/31/23 08:01 Dose: 40 mg Documented By: JOHNSON Glucose (Glucose Gel 15 Gm Gel..Gram.) 15 gm PO Q15M PRN; Protocol PRN Reason: per Hypoglycemia Standing Ord. Heparin Sodium (Porcine) (Heparin Sodium,Porcine 5,000 Unit/Ml Vial) 5,000 unit SUBCUT Q12H [facility] Last Admin: 03/31/23 12:22 Dose: 5,000 unit Documented By: JOHNSON Insulin Human Lispro (Insulin Lispro 100 Unit/Ml 3 Ml Vial) 0 unit SUBCUT QIDACHS [facility]; Protocol Last Admin: 03/31/23 12:22 Dose: 6 unit Documented By: JOHNSON Nitroglycerin (Nitroglycerin 0.4 Mg Tab.Subl) 0.4 mg SUBLINGUAL Q5MX3 PRN PRN Reason: Chest Pain Last Admin: 03/31/23 11:15 Dose: 0.4 mg Documented By: JOHNSON Ondansetron HCl (Ondansetron Hcl 4 Mg/2 Ml Vial) 4 mg IVPUSH Q8H PRN PRN Reason: Nausea and Vomiting Pharmacy Consult (Consult Rx Perform Med Rec) 1 each MISCELLANE ONCE PRN PRN Reason: Consult order Sodium Chloride (0.9 % Sodium Chloride Flush 3 Ml Syringe) 3 ml IVFLUSH QSHIFT [facility]ATTY Last Admin: 03/31/23 08:02 Dose: 3 ml Documented By: JOHNSON Labs 03/30/23 23:06 03/31/23 05:34 Labs: Laboratory Results - last 24 hr 03/30/23 03/30/23 03/30/23 23:06 23:06 23:06 MCV 80.5 MCH 25.3 L MCHC 31.4 RDW 14.3 Plt Count 119 L D MPV 11.7 Immature Gran % (Auto) 0.5 H Neut % (Auto) 71.1 Lymph % (Auto) 19.4 L [place] % (Auto) 6.8 Eos % (Auto) 2.0 Baso % (Auto) 0.2 Lymph # (Auto) 1.9 [place] # (Auto) 0.7 Eos # (Auto) 0.2 Baso # (Auto) 0.0 Abs Immat Gran (auto) 0.05 H Absolute Neuts (auto) 7.0 Absolute Nucleated RBC 0.000 Nucleated RBC % (auto) 0.0 PT INR VBG pH VBG pCO2 VBG pO2 VBG HCO3 VBG O2 Saturation VBG Base Excess Anion Gap 12 Estim Creat Clear Calc 19.3 Estimated GFR 22 POC Glucose Random Glucose 385 H* Calcium 8.2 L Total Bilirubin 0.3 AST 7 ALT 6 Alkaline Phosphatase 179 H Troponin I High Sens B-Natriuretic Peptide 2701 H Total Protein 6.0 L Albumin 2.9 L 03/30/23 03/30/23 03/30/23 23:06 23:06 23:07 MCV MCH MCHC RDW Plt Count MPV Immature Gran % (Auto) Neut % (Auto) Lymph % (Auto) [place] % (Auto) Eos % (Auto) Baso % (Auto) Lymph # (Auto) [place] # (Auto) Eos # (Auto) Baso # (Auto) Abs Immat Gran (auto) Absolute Neuts (auto) Absolute Nucleated RBC Nucleated RBC % (auto) PT 11.7 INR 1.0 VBG pH 7.41 VBG pCO2 48 VBG pO2 37 VBG HCO3 30 H VBG O2 Saturation 61.0 VBG Base Excess 5.3 Anion Gap Estim Creat Clear Calc Estimated GFR POC Glucose Random Glucose Calcium Total Bilirubin AST ALT Alkaline Phosphatase Troponin I High Sens 23.7 H D B-Natriuretic Peptide Total Protein Albumin 03/31/23 03/31/23 03/31/23 05:34 07:22 07:35 MCV MCH MCHC RDW Plt Count MPV Immature Gran % (Auto) Neut % (Auto) Lymph % (Auto) [place] % (Auto) Eos % (Auto) Baso % (Auto) Lymph # (Auto) [place] # (Auto) Eos # (Auto) Baso # (Auto) Abs Immat Gran (auto) Absolute Neuts (auto) Absolute Nucleated RBC Nucleated RBC % (auto) PT INR VBG pH VBG pCO2 VBG pO2 VBG HCO3 VBG O2 Saturation VBG Base Excess Anion Gap 14 Estim Creat Clear Calc 17.9 Estimated GFR 19 POC Glucose 154 H Random Glucose 178 H Calcium 8.4 Total Bilirubin 0.3 AST 7 ALT 5 Alkaline Phosphatase 157 H Troponin I High Sens 24.8 H B-Natriuretic Peptide Total Protein 5.9 L Albumin 2.9 L 03/31/23 11:23 MCV MCH MCHC RDW Plt Count MPV Immature Gran % (Auto) Neut % (Auto) Lymph % (Auto) [place] % (Auto) Eos % (Auto) Baso % (Auto) Lymph # (Auto) [place] # (Auto) Eos # (Auto) Baso # (Auto) Abs Immat Gran (auto) Absolute Neuts (auto) Absolute Nucleated RBC Nucleated RBC % (auto) PT INR VBG pH VBG pCO2 VBG pO2 VBG HCO3 VBG O2 Saturation VBG Base Excess Anion Gap Estim Creat Clear Calc Estimated GFR POC Glucose 253 H Random Glucose Calcium Total Bilirubin AST ALT Alkaline Phosphatase Troponin I High Sens B-Natriuretic Peptide Total Protein Albumin Assessment and Plan (1) Thrombocytopenia: Status: Acute (2) CKD (chronic kidney disease) stage 4, GFR 15-29 ml/min: Status: Acute (3) CHF exacerbation: Status: Acute (4) Elevated troponin: Status: Acute Plan 68-year-old female past medical history of CHF with preserved ejection fraction presents the hospital with complaints of shortness of breath found to be in CHF exacerbation # acute systolic CHF exacerbation pleural effusions on chest x-ray IV Lasix strict I&O, daily weight, low-sodium diet Nephrology to assess for dialysis need monitor BMP # CKD stage 5 on HD Patient report schedule MWF nephro to follow # Chest pain No new EKG changes, ST\T-wave changes to suggest ACS likely type 2 in the setting of CHF Trend Trop I NTG continue aspirin, statin, carvedilol, Plavix # acute on chronic normocytic anemia obtain occult stool blood follow CBC # thrombocytopenia new as compared to previous labs, likely related to being on dialysis follow CBC # diabetes low-dose sliding scale insulin continue home insulin diabetic diet # HTN elevated continue home antihypertensives DVT prophylaxis: Heparin subQ Given patient's need for IV Lasix and dialysis w eval for chest pain inpatient hospital stay for further management and monitoring overnight Time Spent With Patient Time: Total time managing care of this patient today ____ minutes. Quality Stroke Does the patient have a stroke diagnosis?: No VTE Prior VTE?: No VTE Risk Level:: Medical - moderate - high VTE Device Contraindication: Treatment Not Indicated VTE Drug Contraindication: N/A - Med Ordered
[2023-03-31 13:07] LABS: Troponin-I High Sensitivity 21.1 ng/L (<3.5-17.0)
--- NOTE | 2023-03-31 13:48 | PM.CNNEP ---
History of Present Illness Reason for Consult Consult date: 04/01/23 Reason for consult: ESRD Chief Complaint Chief complaint: CHF History of Present Illness Narrative: ?68-year-old female past medical history of CHF with preserved ejection fraction, HLD, CAD, normocytic anemia, diabetes, who comes into the hospital with complaints of shortness of breath. Patient reports her symptoms started today, she has a difficult time catching her breath, has a cough that is nonproductive, has orthopnea and PND, has right lower extremity edema.? Denies any fever, no chills, no chest pain, palpitations, has some epigastric burning sensation, otherwise no nausea or vomiting, no diarrhea constipation, no urinary symptoms. She is due for HD Review of Systems Review of Systems No headache. No nausea vomiting. No abdominal pain. Had shortness of breath. Had chest pain No cough. No dysuria urgency or hematuria. No edema. No rash. [facility] Past Medical History Medical History Acute on chronic renal failure Chronic heart failure with preserved ejection fraction (HFpEF) Congestive heart failure Constipation Diabetes mellitus Essential hypertension Gastroparesis GERD (gastroesophageal reflux disease) HLD (hyperlipidemia) Hypomagnesemia Irritable bowel syndrome with diarrhea Ischemic necrosis of finger Non-ST elevated myocardial infarction Nonischemic cardiomyopathy Normocytic anemia Status post amputation of finger Urinary tract infection due to ESBL Klebsiella Family History Family History Father Lung cancer Mother Diabetes HTN (hypertension) Heart disease Sister Diabetes Heart disease Brother Heart disease Son Diabetes Daughter Diabetes Surgical History Surgical History H/O surgical amputation of finger H/O: hysterectomy History of esophagogastroduodenoscopy (EGD) History of intestinal surgery History of laparoscopic cholecystectomy Hx of colonoscopy Hx of eye surgery Social History Social History Household Members: Other Household Members Other:: SNF Housing: Fdc Do you presently have visiting nurse or other home services: No Unable to assess alcohol history related to: Unknown Alcohol intake: never Patient Tobacco Use Status: Never used Tobacco Second Hand Smoke Exposure: No Use of substances other than those prescribed or required for medical reasons: No Currently Displaying Signs/Symptoms of Drug Intoxication Withdrawal: No Have you been hit, kicked, punched, or otherwise hurt by someone within the past year? If so, by whom?: No Do you feel safe in your current relationship?: No Current Relationship Is there a partner from a previous relationship who is making you feel unsafe now?: No Are you made to feel afraid or neglected: No Advance Directives: Yes Advance Directives on File: Yes Advance Directives Date on File: 01/04/23 Do you have thoughts of harming others: None Do you have a plan to hurt others: No Plan Recently lost weight without trying: Unsure Nutrition Risks: No Nutritional Risk Patient : No : No Poor oral hygiene: No service: No Current occupational status: disabled Meds Allergies Allergy/AdvReac Type Severity Reaction Status Date / Time latex [LATEX] Allergy Intermediate ITCHY Verified 03/09/23 13:42 Active Medications: Current Medications Acetaminophen (Acetaminophen 325 Mg Tablet) 650 mg PO Q6H PRN PRN Reason: Pain, Mild (Pain Scale 1-3) Dextrose (Dextrose 50 % 25 Gm/50 Ml Syringe) 25 gm IVPUSH Q15M PRN; Protocol PRN Reason: per Hypoglycemia Standing Ord. Docusate Sodium (Docusate Sodium 100 Mg Capsule) 100 mg PO DAILY PRN PRN Reason: Constipation Furosemide (Furosemide 40 Mg/4 Ml Vial) 40 mg IVPUSH BID@0900,1800 [facility]; Protocol Last Admin: 03/31/23 08:01 Dose: 40 mg Glucose (Glucose Gel 15 Gm Gel..Gram.) 15 gm PO Q15M PRN; Protocol PRN Reason: per Hypoglycemia Standing Ord. Heparin Sodium (Porcine) (Heparin Sodium,Porcine 5,000 Unit/Ml Vial) 5,000 unit SUBCUT Q12H [facility] Last Admin: 03/31/23 12:22 Dose: 5,000 unit Insulin Human Lispro (Insulin Lispro 100 Unit/Ml 3 Ml Vial) 0 unit SUBCUT QIDACHS [facility]; Protocol Last Admin: 03/31/23 12:22 Dose: 6 unit Nitroglycerin (Nitroglycerin 0.4 Mg Tab.Subl) 0.4 mg SUBLINGUAL Q5MX3 PRN PRN Reason: Chest Pain Last Admin: 03/31/23 11:15 Dose: 0.4 mg Ondansetron HCl (Ondansetron Hcl 4 Mg/2 Ml Vial) 4 mg IVPUSH Q8H PRN PRN Reason: Nausea and Vomiting Pharmacy Consult (Consult Rx Perform Med Rec) 1 each MISCELLANE ONCE PRN PRN Reason: Consult order Sodium Chloride (0.9 % Sodium Chloride Flush 3 Ml Syringe) 3 ml IVFLUSH QSHIFT [facility] Last Admin: 03/31/23 08:02 Dose: 3 ml Home Medications Medication Instructions Recorded Confirmed Last Taken Type aspirin 81 mg tablet,delayed 81 mg PO BEDTIME 06/20/21 03/31/23 02/19/23 History release atorvastatin 80 mg tablet 80 mg PO BEDTIME 06/20/21 03/31/23 10/13/22 History clopidogrel 75 mg tablet 75 mg PO DAILY 06/20/21 03/31/23 02/19/23 History magnesium oxide 400 mg (241.3 mg 400 mg PO BID 06/20/21 03/31/23 10/14/22 History magnesium) tablet trazodone 50 mg tablet 50 mg PO BEDTIME 06/20/21 03/31/23 10/13/22 History insulin glargine 100 unit/mL (3 20 unit subcut DAILY 03/25/22 03/31/23 02/19/23 20:00 History mL) subcutaneous pen (Lantus 20 units Solostar U-100 Insulin) ipratropium 0.5 mg-albuterol 3 mg 3 ml inhalation Q4H PRN Wheezing 05/05/22 03/31/23 Unknown History (2.5 mg base)/3 mL nebulization soln furosemide 40 mg tablet (Lasix) 40 mg PO DAILY 10/14/22 03/31/23 10/14/22 History insulin lispro 100 unit/mL See Protocol subcut QIDACHS 10/14/22 03/31/23 02/19/23 History subcutaneous solution (Humalog U-100 Insulin) acetaminophen 500 mg tablet 1,000 mg PO Q6H PRN Fever Or Pain 10/15/22 03/31/23 Unknown History melatonin 3 mg tablet 3 mg PO BEDTIME 12/27/22 03/31/23 Unknown History pantoprazole 40 mg tablet,delayed 40 mg PO DAILY 12/27/22 03/31/23 Unknown History release tamsulosin 0.4 mg capsule 0.8 mg PO BEDTIME 12/27/22 03/31/23 Unknown History Physical Exam Vital Signs: Last Vital Signs Temp 96.9 F 03/31/23 10:49 Pulse 69 03/31/23 11:30 Resp 18 03/31/23 11:30 BP 151/62 H 03/31/23 11:30 Pulse Ox 99 03/31/23 11:30 O2 Del Method Room Air 03/31/23 11:30 BMI result Body Mass Index 33.4 Comfortable Neck is supple Lung: Air entry equal Heart: S1,S2, normal. No rub Abd: Soft. BS + NS : Alert.No asterexis Ext: No edema Results Lab Results 03/30/23 23:06 03/31/23 05:34 Lab results: Chemistry 03/30/23 03/31/23 23:06 05:34 Sodium 133 L 138 Potassium 4.3 4.3 Carbon Dioxide 26 25 BUN 22 H 23 H Creatinine 2.23 H 2.47 H Calcium 8.2 L 8.4 Hematology 03/30/23 23:06 WBC 9.6 Hgb 9.6 L Plt Count 119 L D Assessment and Plan (1) End stage renal disease: Status: Acute Plan 68-year-old woman with ESRD. She is due for dialysis pressures mild fluid overload. For hemodialysis today. Next remove fluid as tolerated. 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 Will restart Epogen as per protocol Time Spent With Patient Time: Total time managing care of this patient today ____ minutes. Procedures Date of Service Date of Service: 04/01/23
--- NOTE | 2023-03-31 15:15 | P.DS_ITS ---
DS: Providers Provider Date of Service: 03/31/23 Date of admission: 03/31/23 00:25 Primary care physician: Unknown Physician Consults: 03/31/23 08:05 Consult to Nephrology Routine Consulting Provider: Jian Chao Reason for consultation: CKD4 with fluid overload. DS: Diagnosis Discharge Diagnosis (1) End stage renal disease: Status: Acute (2) Bilateral pleural effusion: Status: Acute (3) CHF exacerbation: Status: Acute (4) Elevated troponin: Status: Acute DS: Summary Hospital Course Hospital Course: Admission note HPI ? 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 Patient reports her symptoms started today, she has a difficult time catching he r breath, has a cough that is nonproductive, has orthopnea and PND, has right lower extremity edema.? Denies any fever, no chills, no chest pain, palpitations, has some epigastric burning sensation, otherwise no nausea or vomiting, no diarrhea constipation, no urinary symptoms. On arrival to the ED patient found to have slightly elevated blood pressure but otherwise stable Labs are significant for hemoglobin of 9.6 which is close to her baseline, platelet counts of 119, creatinine of 2. 2 3, BNP of 2701, troponin of 23, Chest x-ray shows CHF.?patient started on Lasix and will be admitted for further management Hospital course The patient was admitted for treatment of acute systolic CHF exacerbation with pleural effusions on chest x-ray. treated with IV Lasix with monitoring strict I&O, daily weight, low-sodium diet. Had a session of dialysis with good response as she was weaned off oxygen and felt back to her baseline asking to be discharged home with a plan to follow with nephrology as outpatient and continue dialysis as scheduled MWF. Blood work showed No new EKG changes, no ST\T-wave changes to suggest ACS. Trop remained flat. likely type 2 in the setting of CHF. continue aspirin, statin, carvedilol, Plavix. Noted to have acute on chronic normocytic anemia with no reported bleeding and negative prev occult stool. To start iron supplement and follow with nephro for the need of IPO. Had thrombocytopenia new as compared to previous labs, likely related to being on dialysis. to be followed as outpatient. The patient made quicker than predicted response to treatment and will be discharged earlier than expected 2 nights at time of admission. Continue dialysis as scheduled Monitor your fluid intake Follow with nephrology as outpatient Time Spent with Patient Time attestation: Total time managing care of this patient today ____ minutes. Discharge coordination time: Greater than 30 minutes Quality: Safe Use of Opioids Does Pt have an Active Cancer Diagnosis on the Problem List?: No Quality: Stroke Does the patient have a stroke diagnosis?: No Physical Exam Vital Signs: Vital Signs: Last Vital Signs Temp 96.8 F 03/31/23 15:14 Pulse 67 03/31/23 15:14 Resp 17 03/31/23 15:14 BP 126/61 03/31/23 15:14 Pulse Ox 100 03/31/23 15:14 O2 Del Method Room Air 03/31/23 15:14 BMI result Body Mass Index 33.4 Const: Other: Constitutional : Awake, interactive, not in distress Neck : Normal inspection, Supple Cardiovascular : RRR, no JVP, no lower extremity edema Respiratory : good bilateral air entry, basal fine crackles, wheezes or rhonchi Gastrointestinal: soft, lax, Normal bowel sounds, Non tender Skin : Warm, Dry, PErnacath in placed, no erythema or drainage Extremities: LLE below knee amputation Neurological : Alert & oriented x3, No focal deficit DS: Data Data Completed and Pending Completed studies during hospitalization [Text1]: Procedures Detachment at Left Index Finger, Mid, Open Approach (09/15/22) Dilation of Esophagus, Via Natural or Artificial Opening Endoscopic (01/31/22) Dilation of Upper Esophagus, Via Natural or Artificial Opening Endoscopic (08/16/21) Fluoroscopy of Superior Vena Cava using Low Osmolar Contrast, Guidance (12/27/22) Insertion of Infusion Device into Superior Vena Cava, Percutaneous Approach (12/27/22) Introduction of Other Thrombolytic into Peripheral Vein, Percutaneous Approach (06/05/21) Performance of Urinary Filtration, Intermittent, Less than 6 Hours Per Day (12/27/22) Transfusion of Nonautologous Red Blood Cells into Peripheral Vein, Percutaneous Approach (12/27/22) Labs on day of discharge: Laboratory Results - last 24 hr 03/30/23 03/30/23 03/30/23 23:06 23:06 23:06 WBC 9.6 RBC 3.80 L Hgb 9.6 L Hct 30.6 L MCV 80.5 MCH 25.3 L MCHC 31.4 RDW 14.3 Plt Count 119 L D MPV 11.7 Immature Gran % (Auto) 0.5 H Neut % (Auto) 71.1 Lymph % (Auto) 19.4 L Mills % (Auto) 6.8 Eos % (Auto) 2.0 Baso % (Auto) 0.2 Lymph # (Auto) 1.9 Mills # (Auto) 0.7 Eos # (Auto) 0.2 Baso # (Auto) 0.0 Abs Immat Gran (auto) 0.05 H Absolute Neuts (auto) 7.0 Absolute Nucleated RBC 0.000 Nucleated RBC % (auto) 0.0 PT INR VBG pH VBG pCO2 VBG pO2 VBG HCO3 VBG O2 Saturation VBG Base Excess Sodium 133 L Potassium 4.3 Chloride 99 Carbon Dioxide 26 Anion Gap 12 BUN 22 H Creatinine 2.23 H Estim Creat Clear Calc 19.3 Estimated GFR 22 POC Glucose Random Glucose 385 H* Calcium 8.2 L Total Bilirubin 0.3 AST 7 ALT 6 Alkaline Phosphatase 179 H Troponin I High Sens B-Natriuretic Peptide 2701 H Total Protein 6.0 L Albumin 2.9 L 03/30/23 03/30/23 03/30/23 23:06 23:06 23:07 WBC RBC Hgb Hct MCV MCH MCHC RDW Plt Count MPV Immature Gran % (Auto) Neut % (Auto) Lymph % (Auto) Mills % (Auto) Eos % (Auto) Baso % (Auto) Lymph # (Auto) Mills # (Auto) Eos # (Auto) Baso # (Auto) Abs Immat Gran (auto) Absolute Neuts (auto) Absolute Nucleated RBC Nucleated RBC % (auto) PT 11.7 INR 1.0 VBG pH 7.41 VBG pCO2 48 VBG pO2 37 VBG HCO3 30 H VBG O2 Saturation 61.0 VBG Base Excess 5.3 Sodium Potassium Chloride Carbon Dioxide Anion Gap BUN Creatinine Estim Creat Clear Calc Estimated GFR POC Glucose Random Glucose Calcium Total Bilirubin AST ALT Alkaline Phosphatase Troponin I High Sens 23.7 H D B-Natriuretic Peptide Total Protein Albumin 03/31/23 03/31/23 03/31/23 05:34 07:22 07:35 WBC RBC Hgb Hct MCV MCH MCHC RDW Plt Count MPV Immature Gran % (Auto) Neut % (Auto) Lymph % (Auto) Mills % (Auto) Eos % (Auto) Baso % (Auto) Lymph # (Auto) Mills # (Auto) Eos # (Auto) Baso # (Auto) Abs Immat Gran (auto) Absolute Neuts (auto) Absolute Nucleated RBC Nucleated RBC % (auto) PT INR VBG pH VBG pCO2 VBG pO2 VBG HCO3 VBG O2 Saturation VBG Base Excess Sodium 138 Potassium 4.3 Chloride 103 Carbon Dioxide 25 Anion Gap 14 BUN 23 H Creatinine 2.47 H Estim Creat Clear Calc 17.9 Estimated GFR 19 POC Glucose 154 H Random Glucose 178 H Calcium 8.4 Total Bilirubin 0.3 AST 7 ALT 5 Alkaline Phosphatase 157 H Troponin I High Sens 24.8 H B-Natriuretic Peptide Total Protein 5.9 L Albumin 2.9 L 03/31/23 03/31/23 11:23 11:51 WBC RBC Hgb Hct MCV MCH MCHC RDW Plt Count MPV Immature Gran % (Auto) Neut % (Auto) Lymph % (Auto) Mills % (Auto) Eos % (Auto) Baso % (Auto) Lymph # (Auto) Mills # (Auto) Eos # (Auto) Baso # (Auto) Abs Immat Gran (auto) Absolute Neuts (auto) Absolute Nucleated RBC Nucleated RBC % (auto) PT INR VBG pH VBG pCO2 VBG pO2 VBG HCO3 VBG O2 Saturation VBG Base Excess Sodium Potassium Chloride Carbon Dioxide Anion Gap BUN Creatinine Estim Creat Clear Calc Estimated GFR POC Glucose 253 H Random Glucose Calcium Total Bilirubin AST ALT Alkaline Phosphatase Troponin I High Sens 21.1 H B-Natriuretic Peptide Total Protein Albumin Imaging Chest x-ray: Radiologist's impression: ITS Impressions Chest X-Ray 03/30/23 22:28 IMPRESSION: 1. Bilateral pleural effusions. 2. Suspect mild CHF or volume overload. 3. Right permacatheter is in distal SVC. Cardiomegaly with mild congestion. 4. Bilateral small pleural effusions. 5. Right central venous catheter tip remains in mid SVC,. There is ready for use. Discharge Plan Discharge Anticipated Discharge Date/Time: 03/31/23 15:12 Patient Disposition: Home, Self-Care Discharge Diagnosis: Fluid overload Referrals: Physician,Unknown J [Primary Care Provider] - 1 Week Discharge Medications: Continued carvedilol 6.25 mg tablet 6.25 mg PO BID Qty: 60 5RF Rx Instructions: must administer with a meal/food - Take one tablet twice daily atorvastatin 80 mg tablet 80 mg PO BEDTIME trazodone 50 mg tablet 50 mg PO BEDTIME clopidogrel 75 mg tablet 75 mg PO DAILY aspirin 81 mg tablet,delayed release (DR/EC) 81 mg PO BEDTIME magnesium oxide 400 mg (241.3 mg magnesium) tablet 400 mg PO BID insulin glargine [Lantus Solostar U-100 Insulin] 100 unit/mL (3 mL) insulin pen 20 unit subcut DAILY amlodipine 10 mg Tablet 10 mg PO DAILY 30 Days Qty: 30 0RF Protocol: Hold for SBP< HOLD for SBP < : 90 ipratropium-albuterol 0.5 mg-3 mg(2.5 mg base)/3 mL Solution For Nebulization 3 ml INHALATION Q4H PRN (Reason: Wheezing) insulin lispro [Humalog U-100 Insulin] 100 unit/mL solution See Protocol subcut QIDACHS Protocol: Insulin Correction Scale Less than or equal to 110 ---- Give (units): 0 111 to 150 Give (units): 0 151 to 200 Give (units): 2 201 to 250 Give (units): 4 251 to 300 Give (units): 6 301 to 350 Give (units): 8 Greater than 350 Give (units): 10 Call MD if Blood Glucose > : 350 Rx Instructions: sliding scale furosemide [Lasix] 40 mg tablet 40 mg PO DAILY Rx Instructions: Please call and schedule cardiology appt. acetaminophen 500 mg Tablet 1,000 mg PO Q6H PRN (Reason: Fever Or Pain) Rx Instructions: do not exceed 3 grams / 24 hours bethanechol chloride 25 mg Tablet 25 mg PO BID Qty: 60 0RF albuterol sulfate 90 mcg/actuation HFA aerosol inhaler 1 inh inhalation QID PRN (Reason: shortness of breath or wheezing) Qty: 8.5 0RF melatonin 3 mg Tablet 3 mg PO BEDTIME pantoprazole 40 mg tablet,delayed release (DR/EC) 40 mg PO DAILY tamsulosin 0.4 mg capsule 0.8 mg PO BEDTIME Discharge Orders: Discharge Order (Routine); Ordered 03/31/23 Ordered By: Jakub Rodriguez Diet: Advance to usual diet Activity on Discharge: As tolerated Stand Alone Forms: Patient Portal Discharge page Care Plan Goals: Read below Health Concerns: Read below Plan of Treatment: Read below Assessment: You were admitted for difficulties breathing. found to have fluids overload in your lungs improved with IV lasix and dialysis. Continue dialysis as scheduled Monitor your fluid intake Follow with nephrology as outpatient
[2023-03-31 15:30] LABS: Glucose, Whole Blood 174 mg/dL (60-115)
--- NOTE | 2023-03-31 15:34 | MHC.CM.PN ---
Both and this CM have tried all available phone numbers listed without successfully being able to reach either Contact. CM will need to arrange BLS transport home time when Daughter/HCP/Adelita is here in person and can confirm that she is indeed available to care for Patient. CM will follow and is aware.
[2023-03-31 19:49] LABS: Glucose, Whole Blood 165 mg/dL (60-115)
[2023-04-01 00:06] VITALS: BP 174/54
[2023-04-01 00:07] LABS: OBS Int Ctl Valid YES; OBS1 NEGATIVE (NEGATIVE)
[2023-04-01] MEDS: Atorvastatin Calcium 80 MG TABLET PO (00:53)
[2023-04-01] MEDS: Aspirin Enteric Coated 81 MG TABLET.DR PO (00:53)
[2023-04-01] MEDS: amLODIPine Besylate 10 MG TABLET PO ×2 (00:53→08:02)
[2023-04-01] MEDS: traZODone HCL 50 MG TABLET PO (00:53)
[2023-04-01] MEDS: carvediloL 6.25 MG TABLET PO ×2 (00:53→08:03)
[2023-04-01] MEDS: Tamsulosin HCL 0.4 MG CAPSULE 0.8 MG PO (00:53)
--- NOTE | 2023-04-01 01:10 | PC.NURSE ---
Patient hypertensive with SBP 170/180s, asymptomatic. MD notified. Home antihypertensive meds ordered and given.
[2023-04-01 04:00] VITALS: BP 118/56; PULSE 65; RESP 18; TEMP 36.4; O2SAT 92
[2023-04-01] MEDS: Omeprazole 40 MG CAPSULE.DR PO (05:57)
[2023-04-01 06:00] VITALS: BMI 32.1
[2023-04-01 07:04] VITALS: BP 117/54; PULSE 68; RESP 20; TEMP 36.4; O2SAT 92
[2023-04-01] MEDS: Bethanechol Chloride 25 MG TABLET PO (08:02)
[2023-04-01] MEDS: Furosemide 40 MG/4 ML VIAL IVPUSH (08:02)
[2023-04-01] MEDS: Insulin Glargine,Hum.rec.anlog 100 UNIT/ML 10 ML VIAL 20 UNIT SUBCUT (08:02)
[2023-04-01] MEDS: 0.9 % Sodium Chloride Flush 3 ML SYRINGE IVFLUSH (08:03)
[2023-04-01] MEDS: Magnesium Oxide 400 MG TABLET PO (08:03)
[2023-04-01] MEDS: Clopidogrel Bisulfate 75 MG TABLET PO (08:03)
[2023-04-01 08:07] LABS: Anion Gap 16 (12-20); Blood Urea Nitrogen 34 mg/dL (9-16); Calcium 8.2 mg/dL (8.4-10.2); Carbon Dioxide 23 mmol/L (22-29); Chloride 102 mmol/L (96-108); Creatinine Clr Calc Pharmacy 15.2; Estimated Glomerular Filt Rate 16; Glucose Random 99 mg/dL (60-115); Potassium 3.7 mmol/L (3.3-5.1); Sodium 137 mmol/L (135-145)
--- NOTE | 2023-04-01 09:51 | MHC.CM.PN ---
messaged this CM requesting a reach-out attempt to family for Pt's safe return to home. Will attempt to connect w/family per MD request.
--- NOTE | 2023-04-01 09:54 | MHC.CM.PN ---
Tried all 3 available listed phone numbers in chart (HCP, contacts), all 3 numbers not taking incoming calls and/or not available. Will report to MD.
--- NOTE | 2023-04-01 10:02 | MHC.CM.PN ---
Daughter called and requested time for her mother's transport home. Daughter confirmed no prior services in the home and that she herself is the caregiver. Daughter agreed to call back in 15 minutes to allow time for CM ambulance set up (per instruction of previous notes). This CM set up transportation for 1:00pm today to return to home with daughter. Medical Necessity Form completed and given to manager front. MD notified.
[2023-04-01 11:25] VITALS: BP 124/54; PULSE 67; RESP 20; TEMP 36.5; O2SAT 94
[2023-04-01] MEDS: Heparin Sodium,Porcine 5,000 UNIT/ML VIAL 5000 UNIT SUBCUT ×2 (11:36)
[2023-04-01] MEDS: Insulin Lispro 100 UNIT/ML 3 ML VIAL SUBCUT (11:36)
--- NOTE | 2023-04-01 11:58 | MHC.CM.PN ---
Daughter called back inquiring/and confirmed time of Pt's D/C of 1:00pm.
--- NOTE | 2023-04-01 12:38 | PM.PNNEP ---
Subjective Subjective Date of Service: 04/01/23 Interval history: Seen and evaluated complained of chest pain this morning BP elevated weaning down O2 supplement no other overnight events Physical Exam Vital Signs: Vital Signs: Last Vital Signs Temp 97.7 F 04/01/23 11:25 Pulse 67 04/01/23 11:25 Resp 20 04/01/23 11:25 BP 124/54 L 04/01/23 11:25 Pulse Ox 94 04/01/23 11:25 O2 Del Method Room Air 04/01/23 11:25 O2 Flow Rate 92 04/01/23 04:00 BMI result Body Mass Index 32.1 Const: Other: Constitutional : Awake, interactive, not in distress Neck : Normal inspection, Supple Cardiovascular : RRR, no JVP, no lower extremity edema Respiratory : good bilateral air entry, basal fine crackles, wheezes or rhonchi Gastrointestinal: soft, lax, Normal bowel sounds, Non tender Skin : Warm, Dry, PErnacath in placed, no erythema or drainage Extremities: LLE below knee amputation Neurological : Alert & oriented x3, No focal deficit Objective Data Labs 03/30/23 23:06 04/01/23 07:20 Labs: Laboratory Results - last 24 hr 03/31/23 03/31/23 03/31/23 11:51 15:16 19:14 Sodium Potassium Chloride Carbon Dioxide Anion Gap BUN Creatinine Estim Creat Clear Calc Estimated GFR POC Glucose 174 H 165 H Random Glucose Calcium Troponin I High Sens 21.1 H Stool Occult Blood 03/31/23 04/01/23 04/01/23 22:47 07:03 07:20 Sodium 137 Potassium 3.7 Chloride 102 Carbon Dioxide 23 Anion Gap 16 BUN 34 H Creatinine 2.84 H Estim Creat Clear Calc 15.2 Estimated GFR 16 POC Glucose 102 Random Glucose 99 Calcium 8.2 L Troponin I High Sens Stool Occult Blood NEGATIVE 04/01/23 11:27 Sodium Potassium Chloride Carbon Dioxide Anion Gap BUN Creatinine Estim Creat Clear Calc Estimated GFR POC Glucose 223 H Random Glucose Calcium Troponin I High Sens Stool Occult Blood Procedures Date of Service Date of Service: 04/01/23 Assessment & Plan Assessment and plan (1) End stage renal disease: Status: Acute Plan 68-year-old woman with ESRD. 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 restart Epogen as per protocol Time Spent With Patient Time: Total time managing care of this patient today ____ minutes. Progress Note: Quality Stroke Does the patient have a stroke diagnosis?: No
== END 2023-04-01 13:21 | disposition home or self-care (01) | DRG 280 ==
LOC: HO.ED 03-31 00:11 → HO.EDOVER 03-31 00:38 → HO.IMC 03-31 02:49
PROVIDERS: Admitting Provider Internal Medicine; Emergency Provider Student in an Organized Health Care Education/Training Program; Visit Provider Student in an Organized Health Care Education/Training Program
DX: I13.2 Hypertensive heart and chronic kidney disease with heart failure and with stage 5 chronic kidney disease, or end stage renal disease (principal); I50.23 Acute on chronic systolic (congestive) heart failure; I21.A1 Myocardial infarction type 2; N18.6 End stage renal disease; E11.22 Type 2 diabetes mellitus with diabetic chronic kidney disease; D63.1 Anemia in chronic kidney disease; I25.10 Atherosclerotic heart disease of native coronary artery without angina pectoris; D69.6 Thrombocytopenia, unspecified; Z99.2 Dependence on renal dialysis; Z79.4 Long term (current) use of insulin; Z79.02 Long term (current) use of antithrombotics/antiplatelets; Z79.82 Long term (current) use of aspirin; Z79.899 Other long term (current) drug therapy
CPT/HCPCS: 36415; 71045; 80048; 80053; 82272; 82803; 82947; 83880; 84484; 85025; 85610; 90999; 93005; 99285; J1643; J1940

== ENCOUNTER 2023-04-20 12:43 | Emergency (ER) | payer OTHER, SELFPAY ==
[2023-04-20] VITALS (8 sets, daily range): BP systolic 97–161; BP diastolic 42–90; PULSE 72–83; RESP 15–18; TEMP 36.7; O2SAT 95–98; BMI 30.7
--- NOTE | ~2023-04-20 | XR_ITS ---
EXAMINATION: XR CHEST CLINICAL INFORMATION: Acute upper abdominal pain COMPARISON: None available. TECHNIQUE: Frontal view of the chest was obtained. FINDINGS: The lungs are well-expanded with platelike atelectasis in the lingula. Rest of lungs are clear. The heart size and pulmonary vascularity is normal. The left central dialysis catheter its tip in mid SVC. No gross bony abnormality. XR/XR chest 1V IMPRESSION: 1. Platelike atelectasis in the lingula. 2. Left central dialysis catheter tip in mid SVC.
--- NOTE | ~2023-04-20 | CT_ITS ---
EXAMINATION: CT ABDOMEN AND PELVIS WITH CONTRAST CLINICAL INFORMATION: Severe abdominal pain. COMPARISON: CT scans dating between December 18, 2022 and March 03, 2016. TECHNIQUE: Multidetector volumetric images were obtained from the superior aspect of the liver through the pubic symphysis following administration 85 mL of Omnipaque 350 intravenous contrast. Sagittal and coronal reformatted images were obtained on the technologist's workstation. Oral contrast: No This CT examination was performed using dose optimization techniques as appropriate, variously including the following: *Automated exposure control *Adjustment of mA and/or kV according to patient size (this includes techniques or standardized protocols for targeted exams where dose is matched to indication/reason for exam; i.e. extremities or head) *Use of iterative reconstruction technique DLP: 499 mGy-cm FINDINGS: LUNG BASES: Small bilateral pleural effusions with associated atelectasis. Mild cardiomegaly. No pericardial effusion. LIVER, GALLBLADDER, AND BILIARY TREE: The liver appears unremarkable in size, shape, and attenuation. No focal hepatic lesion or biliary ductal dilatation is appreciated. Unremarkable appearance of the gallbladder. PANCREAS: Unremarkable SPLEEN: Unremarkable ADRENAL GLANDS: Unremarkable KIDNEYS AND URETERS: The kidneys appear unremarkable in size, shape, and attenuation. No hydronephrosis, hydroureter, or calculi seen. BLADDER: Suspect mild diffuse thickening of the wall the urinary bladder, nonspecific. GASTROINTESTINAL TRACT: Unremarkable appearance of the stomach. Small bowel anastomotic heather. No diverticulosis. Normal-appearing distal ileum and vermiform appendix. ABDOMINAL WALL: Mid lower anterior abdominal wall surgical mesh. No significant hernia is appreciated. LYMPH NODES: No evidence of adenopathy by size criteria. VASCULAR: Extensive medium and small vessel arterial calcification. PELVIC VISCERA: Status post hysterectomy. OSSEOUS STRUCTURES: Unremarkable CT/CT abdomen pelvis w IV con IMPRESSION: Suspect mild diffuse thickening of the wall the urinary bladder, nonspecific. Differential diagnosis includes, but is not limited to, cystitis, neurogenic, muscular hypertrophy, etc. Small bilateral pleural effusions with associated atelectasis. Mild cardiomegaly. Extensive medium and small vessel arterial calcification, suggesting diabetic and/or renal calcific atherosclerosis.
[2023-04-20 13:32] LABS: Glucose, Whole Blood 236 mg/dL (60-115)
--- NOTE | 2023-04-20 14:23 | ECG_ITS ---
Test Reason : ABD PAIN Blood Pressure : / mmHG Vent. Rate : 078 BPM Atrial Rate : 078 BPM P-R Int : 156 ms QRS Dur : 130 ms QT Int : 464 ms P-R-T Axes : 048 007 221 degrees QTc Int : 528 ms Sinus rhythm with Premature atrial complexes Left ventricular hypertrophy with QRS widening and repolarization abnormality ( Heriberto product ) Abnormal ECG When compared with ECG of 31-MAR-2023 11:18, No significant change was found Referred By: Mingo Caraballo Electronically Signed By:Nik Lou
--- NOTE | 2023-04-20 14:26 | ED.GENADULT ---
HPI - General Adult General Chief complaint: General Medical Stated complaint: UPPER ABD PAIN, VOMITING Time Seen by Provider: 04/20/23 13:37 Source: patient Limitations: no limitations History of Present Illness HPI narrative: 68 yo female presents with abdominal pain Pertienent PMH: ESRD on HD MWF, previous abd surgery Abdominal pain started 3 days ago. His predominantly located in the upper abdomen. The pain is constant but intermittently gets worse. She describes it as a twisting sensation. The pain is severe, 10/10. There is no clear relieving or exacerbating features. Has been associated with decreased appetite. She has had nausea, vomiting and diarrhea. There has been no blood in the vomitus or the stool. Patient apparently has had this intermittently for the past 5 years. She reports this happened after some sort of urologic procedure Related Data Home Medications Medication Instructions Recorded Confirmed aspirin 81 mg tablet,delayed 81 mg PO BEDTIME 06/20/21 04/20/23 release atorvastatin 80 mg tablet 80 mg PO BEDTIME 06/20/21 04/20/23 clopidogrel 75 mg tablet 75 mg PO DAILY 06/20/21 04/20/23 trazodone 50 mg tablet 50 mg PO BEDTIME 06/20/21 04/20/23 insulin glargine 100 unit/mL (3 20 unit subcut DAILY 03/25/22 04/20/23 mL) subcutaneous pen (Lantus Solostar U-100 Insulin) ipratropium 0.5 mg-albuterol 3 mg 3 ml inhalation Q4H PRN Wheezing 05/05/22 04/20/23 (2.5 mg base)/3 mL nebulization soln furosemide 40 mg tablet (Lasix) 40 mg PO DAILY 10/14/22 04/20/23 insulin lispro 100 unit/mL See Protocol subcut QIDACHS 10/14/22 04/20/23 subcutaneous solution (Humalog U-100 Insulin) acetaminophen 500 mg tablet 1,000 mg PO Q6H PRN Fever Or Pain 10/15/22 04/20/23 melatonin 3 mg tablet 3 mg PO BEDTIME 12/27/22 04/20/23 pantoprazole 40 mg tablet,delayed 40 mg PO DAILY 12/27/22 04/20/23 release tamsulosin 0.4 mg capsule 0.8 mg PO BEDTIME 12/27/22 04/20/23 amlodipine 5 mg tablet 5 mg PO DAILY 04/20/23 04/20/23 carvedilol 6.25 mg tablet 6.25 mg PO BIDWM 04/20/23 04/20/23 magnesium oxide 400 mg (241.3 mg 400 mg PO DAILY 04/20/23 04/20/23 magnesium) tablet Previous Rx's Medication Instructions Recorded bethanechol chloride 25 mg tablet 25 mg PO BID #60 tabs 10/19/22 albuterol sulfate 90 mcg/actuation 1 inh inhalation QID PRN shortness 03/16/23 aerosol inhaler of breath or wheezing #8.5 grams cephalexin 500 mg capsule 500 mg PO Q12H #14 caps 04/20/23 oxycodone 5 mg tablet 5 mg PO Q8H PRN pain #7 tabs 04/20/23 Allergies Allergy/AdvReac Type Severity Reaction Status Date / Time latex [LATEX] Allergy Intermediate ITCHY Verified 04/20/23 13:04 Review of Systems Review of Systems: CONSTITUTIONAL: Denies weight loss, fever and chills. HEENT: Denies changes in vision and hearing. RESPIRATORY: Denies SOB and cough. CV: Denies palpitations no CP. GI: + abdominal pain, nausea, vomiting and diarrhea. : Denies dysuria and urinary frequency. MSK: Denies myalgia and joint pain. SKIN: Denies rash and pruritus. NEUROLOGICAL: Denies headache and syncope. PSYCHIATRIC: Denies recent changes in mood. Denies anxiety and depression. All other ROS are negative unless in HPI PMFSH Past Medical History Medical History Acute on chronic renal failure Chronic heart failure with preserved ejection fraction (HFpEF) CKD (chronic kidney disease) stage 4, GFR 15-29 ml/min Congestive heart failure Constipation Diabetes mellitus End stage renal disease Essential hypertension Gastroparesis GERD (gastroesophageal reflux disease) HLD (hyperlipidemia) Hypomagnesemia Irritable bowel syndrome with diarrhea Ischemic necrosis of finger Non-ST elevated myocardial infarction Nonischemic cardiomyopathy Normocytic anemia Status post amputation of finger Thrombocytopenia Urinary tract infection due to ESBL Klebsiella Surgical History H/O surgical amputation of finger H/O: hysterectomy History of esophagogastroduodenoscopy (EGD) History of intestinal surgery History of laparoscopic cholecystectomy Hx of colonoscopy Hx of eye surgery Family History Family History Father Lung cancer Mother Diabetes HTN (hypertension) Heart disease Sister Diabetes Heart disease Brother Heart disease Son Diabetes Daughter Diabetes Social History Social History Household Members: Other Household Members Other:: SNF Housing: Halfway Do you presently have visiting nurse or other home services: No Unable to assess alcohol history related to: Unknown Alcohol intake: never Patient Tobacco Use Status: Never used Tobacco Smoked in Last 30 Days: No Second Hand Smoke Exposure: No Use of substances other than those prescribed or required for medical reasons: No Advance Directives: Yes Advance Directives on File: Yes Advance Directives Date on File: 01/04/23 service: No Current occupational status: disabled Physical Exam ED Vital Signs: Vital Signs - 24 hr 04/20/23 13:09 04/20/23 14:39 04/20/23 15:58 Temperature 98.1 F Pulse Rate 72 77 81 Respiratory Rate 18 16 Blood Pressure 136/42 L 97/52 L 161/90 H Pulse Oximetry 96 98 Oxygen Delivery Method Room Air Room Air 04/20/23 17:02 04/20/23 18:13 04/20/23 18:16 Temperature 98.1 F Pulse Rate 83 81 Respiratory Rate 15 18 16 Blood Pressure 126/62 112/79 Pulse Oximetry 97 95 Oxygen Delivery Method Room Air Room Air 04/20/23 20:52 Temperature Pulse Rate 76 Respiratory Rate 16 Blood Pressure 132/67 Pulse Oximetry 95 Oxygen Delivery Method Room Air BMI result Body Mass Index 30.7 GEN: Well developed, acute distress, alert, oriented HEENT: Normocephalic, atraumatic, normal external ears, nose appears normal, no oropharyngeal edema or exudates Eyes: Normal to appearance Neck: Supple, no lymphadenopathy Respiratory: Talks in complete sentences, no respiratory distress, clear to auscultation bilaterally Cardiovascular: Regular rate and rhythm, no murmurs rubs or gallops Abdomen: Soft, tedner diffusely, nondistended, + guarding, no rebound Back: No CVA tenderness Extremities: No clubbing cyanosis or edema, multiple finger amputations, left bka Neurologic: No focal neurologic deficits, cranial nerves 2-12 intact, strength is 5/5 bilaterally Skin: No rash Course Reevaluation(s) Reevaluation #1: Patient's evaluation is complete. Her CT scan demonstrated bladder wall thickening. A straight cath urine sample did in fact demonstrate a positive urinary tract infection. She was given ceftriaxone in the emergency department. After 2 doses of morphine, she is feeling significantly improved. She will be discharged on oral antibiotics and a small amount of oxycodone. She was instructed to return for any worsening or uncontrolled symptoms. She was also instructed the necessity to follow up with dialysis tomorrow since she got intravenous contrast. Time: 20:18 Medications Administered Discontinued Medications Generic Name Dose Route Start Last Admin Trade Name Freq PRN Reason Stop Dose Admin Famotidine 20 mg 04/20/23 14:23 04/20/23 14:36 Famotidine/Pf 20 Mg/2 Ml Vial IVPUSH 04/20/23 14:24 20 mg ONCE ONE Administration Ceftriaxone Sodium 1 gm/ 50 mls @ 100 mls/hr 04/20/23 18:58 04/20/23 20:03 Sodium Chloride IV 04/20/23 19:27 100 mls/hr ONCE ONE Administration Iohexol 100 ml 04/20/23 15:47 04/20/23 15:47 Iohexol 350 Mg/Ml 100 Ml Infus..Btl IV 04/20/23 15:48 85 ml ONCE ONE Administration Morphine Sulfate 4 mg 04/20/23 14:23 04/20/23 15:57 Morphine Sulfate 4 Mg/Ml Cartridge IVPUSH 04/20/23 14:24 Not Given ONCE ONE Protocol Morphine Sulfate 2 mg 04/20/23 17:06 04/20/23 18:16 Morphine Sulfate 2 Mg/Ml Cartridge IVPUSH 04/20/23 17:07 2 mg ONCE ONE Administration Protocol Morphine Sulfate 4 mg 04/20/23 18:38 04/20/23 19:43 Morphine Sulfate 4 Mg/Ml Cartridge IVPUSH 04/20/23 18:39 Not Given ONCE ONE Protocol Ondansetron HCl 4 mg 04/20/23 14:23 04/20/23 14:36 Ondansetron Hcl 4 Mg/2 Ml Vial IVPUSH 04/20/23 14:24 4 mg ONCE ONE Administration Medical Decision Making Medical Decision Making MDM Narrative: 68-year-old female with multiple chronic medical problems presents with abdominal pain. Examination revealed significant tenderness with guarding but no rebound. Differential diagnosis could include colitis, diverticulitis, small-bowel obstruction, ileus, mesenteric ischemia, biliary, pancreatitis, volvulus, mesenteric adenitis. Plan will be to obtain a CT scan of the abdomen pelvis. Will check laboratory analysis. Will provide patient with analgesia, antiemetics. Will hold off on IV fluids given patient is a dialysis patient. Patient does not appear to be septic at this point. Differential Diagnosis Differential Diagnoses: The differential diagnosis associated with the presentation includes (See above) UTI, abdominal pain Admission/Observation Consideration of admission/observation: Escalation of care including admission/observation considered Lab Data MDM Lab Attestation statement: I reviewed the patient's lab results. 04/20/23 14:35 04/20/23 14:35 Labs: Lab Results 04/20/23 04/20/23 04/20/23 Range/Units 13:28 14:35 14:35 WBC 8.8 (4.8-10.8) X10*3/uL RBC 4.14 L (4.20-5.50) X10*6/uL Hgb 10.9 L (12.0-16.0) g/dl Hct 34.7 L (37.0-47.0) % MCV 83.8 (80.0-98.0) fL MCH 26.3 L (27.0-33.0) pg MCHC 31.4 (31.0-35.0) g/dl RDW 16.0 (11.0-16.0) % Plt Count 189 D (160-400) X10*3/uL MPV 10.4 (9.4-12.3) fL Immature Gran % (Auto) 1.1 H (0.0-0.4) % Neut % (Auto) 66.4 (45-73) % Lymph % (Auto) 21.0 (20-40) % Granite % (Auto) 7.6 (2-11) % Eos % (Auto) 3.6 (0-4) % Baso % (Auto) 0.3 (0-2) % Lymph # (Auto) 1.9 (1.2-4.9) X10*3/uL Granite # (Auto) 0.7 (0.1-1.2) X10*3/uL Eos # (Auto) 0.3 (0.0-0.4) X10*3/uL Baso # (Auto) 0.0 (0.0-0.2) X10*3/uL Abs Immat Gran (auto) 0.10 H (0.00-0.03) X10*3/uL Absolute Neuts (auto) 5.9 (2.0-8.3) x10*3/uL Absolute Nucleated RBC 0.000 (0.0-0.012) X10*3/uL Nucleated RBC % (auto) 0.0 (0.0-0.2) /100WBC Sodium 138 (135-145) mmol/L Potassium 4.8 D (3.3-5.1) mmol/L Chloride 98 (96-108) mmol/L Carbon Dioxide 29 (22-29) mmol/L Anion Gap 16 (12-20) BUN 18 H (9-16) mg/dL Creatinine 2.48 H (0.5-1.4) mg/dL Estim Creat Clear Calc 17.0 Estimated GFR 19 POC Glucose 236 H (60-115) mg/dL Random Glucose 281 H (60-115) mg/dL Lactic Acid (0.5-2.0) mmol/L Calcium 8.3 L (8.4-10.2) mg/dL Total Bilirubin 0.2 (0.0-1.0) mg/dL AST 13 (5-31) U/L ALT 11 (0-31) U/L Alkaline Phosphatase 220 H (39-117) U/L Total Protein 6.4 L (6.5-8.0) g/dL Albumin 2.9 L (3.5-5.0) g/dL Lipase 12 (8-78) U/L Urine Color Urine Appearance Urine pH (5.0-9.0) Ur Specific [place] (1.005-1.025) Urine Protein (Neg-Trace) mg/dL Urine Glucose (UA) (Negative) mg/dL Urine Ketones (Negative) mg/dL Urine Blood (Negative) Urine Nitrite (Negative) Ur Leukocyte Esterase (Negative) Urine RBC (0-2) /HPF Urine WBC (0-5) /HPF Ur Squamous Epith Cells (0-2) /HPF Urine Bacteria (None Seen) Hyaline Casts (0-2) /LPF 04/20/23 04/20/23 Range/Units 14:35 18:07 WBC (4.8-10.8) X10*3/uL RBC (4.20-5.50) X10*6/uL Hgb (12.0-16.0) g/dl Hct (37.0-47.0) % MCV (80.0-98.0) fL MCH (27.0-33.0) pg MCHC (31.0-35.0) g/dl RDW (11.0-16.0) % Plt Count (160-400) X10*3/uL MPV (9.4-12.3) fL Immature Gran % (Auto) (0.0-0.4) % Neut % (Auto) (45-73) % Lymph % (Auto) (20-40) % Granite % (Auto) (2-11) % Eos % (Auto) (0-4) % Baso % (Auto) (0-2) % Lymph # (Auto) (1.2-4.9) X10*3/uL Granite # (Auto) (0.1-1.2) X10*3/uL Eos # (Auto) (0.0-0.4) X10*3/uL Baso # (Auto) (0.0-0.2) X10*3/uL Abs Immat Gran (auto) (0.00-0.03) X10*3/uL Absolute Neuts (auto) (2.0-8.3) x10*3/uL Absolute Nucleated RBC (0.0-0.012) X10*3/uL Nucleated RBC % (auto) (0.0-0.2) /100WBC Sodium (135-145) mmol/L Potassium (3.3-5.1) mmol/L Chloride (96-108) mmol/L Carbon Dioxide (22-29) mmol/L Anion Gap (12-20) BUN (9-16) mg/dL Creatinine (0.5-1.4) mg/dL Estim Creat Clear Calc Estimated GFR POC Glucose (60-115) mg/dL Random Glucose (60-115) mg/dL Lactic Acid 1.8 (0.5-2.0) mmol/L Calcium (8.4-10.2) mg/dL Total Bilirubin (0.0-1.0) mg/dL AST (5-31) U/L ALT (0-31) U/L Alkaline Phosphatase (39-117) U/L Total Protein (6.5-8.0) g/dL Albumin (3.5-5.0) g/dL Lipase (8-78) U/L Urine Color Yellow Urine Appearance Turbid Urine pH 6.5 (5.0-9.0) Ur Specific [place] 1.020 (1.005-1.025) Urine Protein >=1000 (4+) H (Neg-Trace) mg/dL Urine Glucose (UA) 100 H (Negative) mg/dL Urine Ketones Negative (Negative) mg/dL Urine Blood Moderate (2+) H (Negative) Urine Nitrite Negative (Negative) Ur Leukocyte Esterase Large (3+) H (Negative) Urine RBC 11-20 H (0-2) /HPF Urine WBC >50 H (0-5) /HPF Ur Squamous Epith Cells 3-5 (0-2) /HPF Urine Bacteria 4+ (None Seen) Hyaline Casts 3-5 (0-2) /LPF Independent Interpretation I performed an independent interpretation of an: EKG (Normal sinus rhythm heart rate 78, sinus arrhythmia, widening QRS, LVH when compared to March 31, 2023, no significant changes), Plain X-Ray (Chest: Pulmonary vascular congestion) and CT Scan (No acute intra-abdominal findings possible inflammatory changes to the bladder.) Radiology Impression Discussion of test interpretation with radiology: I have reviewed the radiologist's reading. Radiologist Impression: CT/CT abdomen pelvis w IV con IMPRESSION: ? Suspect mild diffuse thickening of the wall the urinary bladder, nonspecific. Differential diagnosis includes, but is not limited to, cystitis, neurogenic, muscular hypertrophy, etc. ? Small bilateral pleural effusions with associated atelectasis. Mild cardiomegaly. ? Extensive medium and small vessel arterial calcification, suggesting diabetic and/or renal calcific atherosclerosis. Dictated By: Fransisco Dejesus Signed By: <Electronically signed by Fransisco? Oleg in OV> 04/20/23 1603 Independent Historian Clinical information obtained from an independent historian. History obtained from or confirmed by: EMS External Record Review External record reviewed: Inpatient record (At surgery consultation October 15, 2022) Any previous GI records from February 02, 2022 including upper endoscopy demonstrating gastritis, hiatal hernia, duodenitis Discharge Plan Discharge Clinical Impression: Abdominal pain, Urinary tract infection, Dialysis patient Patient Disposition: Home, Self-Care Instructions: Abdominal Pain (ED), Hemodialysis (DC), Urinary Tract Infection in Older Adults (ED) Prescriptions: New cephalexin 500 mg capsule 500 mg PO Q12H Qty: 14 0RF oxycodone 5 mg tablet 5 mg PO Q8H PRN (Reason: pain) Qty: 7 0RF Rx Instructions: Partial Fill upon patient request. No Action atorvastatin 80 mg tablet 80 mg PO BEDTIME trazodone 50 mg tablet 50 mg PO BEDTIME clopidogrel 75 mg tablet 75 mg PO DAILY aspirin 81 mg tablet,delayed release (DR/EC) 81 mg PO BEDTIME insulin glargine [Lantus Solostar U-100 Insulin] 100 unit/mL (3 mL) insulin pen 20 unit subcut DAILY ipratropium-albuterol 0.5 mg-3 mg(2.5 mg base)/3 mL Solution For Nebulization 3 ml INHALATION Q4H PRN (Reason: Wheezing) insulin lispro [Humalog U-100 Insulin] 100 unit/mL solution See Protocol subcut QIDACHS Protocol: Insulin Correction Scale Less than or equal to 110 ---- Give (units): 0 111 to 150 Give (units): 0 151 to 200 Give (units): 2 201 to 250 Give (units): 4 251 to 300 Give (units): 6 301 to 350 Give (units): 8 Greater than 350 Give (units): 10 Call MD if Blood Glucose > : 350 Rx Instructions: sliding scale furosemide [Lasix] 40 mg tablet 40 mg PO DAILY Rx Instructions: Please call and schedule cardiology appt. acetaminophen 500 mg Tablet 1,000 mg PO Q6H PRN (Reason: Fever Or Pain) Rx Instructions: do not exceed 3 grams / 24 hours bethanechol chloride 25 mg Tablet 25 mg PO BID Qty: 60 0RF albuterol sulfate 90 mcg/actuation HFA aerosol inhaler 1 inh inhalation QID PRN (Reason: shortness of breath or wheezing) Qty: 8.5 0RF amlodipine 5 mg tablet 5 mg PO DAILY magnesium oxide 400 mg (241.3 mg magnesium) tablet 400 mg PO DAILY carvedilol 6.25 mg tablet 6.25 mg PO BIDWM Rx Instructions: must administer with a meal/food - Take one tablet twice daily melatonin 3 mg Tablet 3 mg PO BEDTIME pantoprazole 40 mg tablet,delayed release (DR/EC) 40 mg PO DAILY tamsulosin 0.4 mg capsule 0.8 mg PO BEDTIME Referrals: Alexys Avila MD [Primary Care Provider] - Print Language: Cam[place]onian
[2023-04-20] MEDS: Famotidine/PF 20 MG/2 ML VIAL IVPUSH (14:36)
[2023-04-20] MEDS: ondansetron HCL 4 MG/2 ML VIAL IVPUSH (14:36)
[2023-04-20 14:44] LABS: MANUAL DIFF FLAG NO
[2023-04-20 14:49] LABS: Basophils Percent Auto 0.3 % (0-2); Eosinophils Absolute Auto 0.3 X10*3/uL (0.0-0.4); Eosinophils Percent Auto 3.6 % (0-4); Hematocrit 34.7 % (37.0-47.0); Hemoglobin 10.9 g/dl (12.0-16.0); Imm Gran Pct Auto 1.1 % (0.0-0.4); Lymphocytes Absolute Auto 1.9 X10*3/uL (1.2-4.9); Mean Corpuscular HGB Conc 31.4 g/dl (31.0-35.0); Mean Corpuscular Hemoglobin 26.3 pg (27.0-33.0); Mean Corpuscular Volume 83.8 fL (80.0-98.0); Mean Platelet Volume 10.4 fL (9.4-12.3); Monocytes Absolute Auto 0.7 X10*3/uL (0.1-1.2); Monocytes Percent Auto 7.6 % (2-11); Neutrophils Absolute Auto 5.9 x10*3/uL (2.0-8.3); Neutrophils Percent Auto 66.4 % (45-73); Platelet Count 189 X10*3/uL (160-400); Red Blood Count 4.14 X10*6/uL (4.20-5.50); White Blood Count 8.8 X10*3/uL (4.8-10.8)
[2023-04-20 14:59] LABS: Lactic Acid 1.8 mmol/L (0.5-2.0)
[2023-04-20 15:05] LABS: Alanine Aminotransferase 11 U/L (0-31); Albumin Level 2.9 g/dL (3.5-5.0); Alkaline Phosphatase 220 U/L (39-117); Anion Gap 16 (12-20); Aspartate Amino Transferase 13 U/L (5-31); Bilirubin Total 0.2 mg/dL (0.0-1.0); Blood Urea Nitrogen 18 mg/dL (9-16); Calcium 8.3 mg/dL (8.4-10.2); Carbon Dioxide 29 mmol/L (22-29); Chloride 98 mmol/L (96-108); Estimated Glomerular Filt Rate 19; Glucose Random 281 mg/dL (60-115); Lipase 12 U/L (8-78); Potassium 4.8 mmol/L (3.3-5.1); Sodium 138 mmol/L (135-145); Total Protein 6.4 g/dL (6.5-8.0)
[2023-04-20] MEDS: iohexoL 350 MG/ML 100 ML INFUS..BTL IV (15:47)
--- NOTE | 2023-04-20 16:06 | PC.NURSE ---
multiple staff attempted new iv as prior not flush. by ultrasound atempting now
--- NOTE | 2023-04-20 16:29 | PHA.MEDREC ---
Pharmacy Consult ? Medication Reconciliation Pharmacy has completed the medication reconciliation. Pt is poor historian. Doesn't know information about meds and only wakes long enough to acknowledge her name. Used claim history and last med rec on 03/31/23 to complete med rec today.
[2023-04-20] MEDS: Morphine Sulfate 2 MG/ML CARTRIDGE IVPUSH (18:16)
[2023-04-20 18:20] LABS: Appearance Urine Turbid; Color Urine Yellow; Glucose Urine UA 100 mg/dL (Negative); Leukocyte Esterase Urine Large (3+) (Negative); Nitrite Urine Negative (Negative); PH 6.5 (5.0-9.0); UMIC TRIGGER UACC YES; Urine Blood Moderate (2+) (Negative); Urine Ketones Negative (Negative); Urine Protein >=1000 (4+) mg/dL (Neg-Trace)
--- NOTE | 2023-04-20 18:21 | PC.NURSE ---
straight cath placed, 300ml cloudy urine with mucus obtained and sent to lab, 20 G IV placed left AC, medicated for 8/10 abd pain. unable to secure IV access prior to pt movement, unable to advance and pulled.
[2023-04-20 18:57] LABS: Bacteria Urine 4+ (None Seen); UACC Culture Trigger YES; WBC Urine >50 /HPF (0-5)
[2023-04-20] MEDS: cefTRIAXone sodium 1 GM in 0.9 % Sodium Chloride 50 ML IV (20:03)
--- NOTE | 2023-04-20 20:53 | PC.NURSE ---
attempted multiple times to call family listed in contacts/per pt request- not answering however pt reports daughter is home. community youth secretary ordering ambulance. pt to bathroom w wheelchair voiding well. no distress. denies pain. vss
== END 2023-04-20 21:47 | disposition home or self-care (01) ==
PROVIDERS: Emergency Provider Emergency Medicine; PCP Internal Medicine
DX: R10.10 Upper abdominal pain, unspecified (principal); N39.0 Urinary tract infection, site not specified; B96.20 Unspecified Escherichia coli [E. coli] as the cause of diseases classified elsewhere; E11.22 Type 2 diabetes mellitus with diabetic chronic kidney disease; I12.0 Hypertensive chronic kidney disease with stage 5 chronic kidney disease or end stage renal disease; N18.6 End stage renal disease; Z99.2 Dependence on renal dialysis; E78.5 Hyperlipidemia, unspecified; Z79.899 Other long term (current) drug therapy; Z79.82 Long term (current) use of aspirin; Z79.4 Long term (current) use of insulin
CPT/HCPCS: 36415; 71045; 74177; 80053; 81001; 82947; 83605; 83690; 85025; 87086; 87088; 87186; 93005; 96365; 96375; 99284; 99285; J0696; J2270; J2405; Q9967

== ENCOUNTER → 2023-04-20 14:23 | Outpatient (BNV) | payer OTHER, SELFPAY | PROVIDERS: Emergency Provider Emergency Medicine; PCP Internal Medicine; Visit Provider Internal Medicine Cardiovascular Disease | DX: R10.9 Unspecified abdominal pain (principal) | CPT/HCPCS: 93010 ==

== ENCOUNTER 2023-04-21 15:36 | Observation (INO) | payer OTHER, SELFPAY ==
--- NOTE | ~2023-04-21 | XR_ITS ---
EXAMINATION: XR CHEST CLINICAL INFORMATION: Reason for Exam ? pleural effusions COMPARISON: Chest radiograph 04/20/2023 TECHNIQUE: One view of the chest FINDINGS: Lines and tubes: Right subclavian central venous catheter tip overlies the cavoatrial junction. Similar small bilateral pleural effusions and bibasilar opacities left greater than right. No pneumothorax. Unchanged cardiomediastinal silhouette. XR/XR chest 1V IMPRESSION: 1. Similar small bilateral pleural effusions and bibasilar opacities left greater than right.
[2023-04-21 15:51] VITALS: BP 132/80; BP 138/56; PULSE 74; PULSE 75; RESP 18; TEMP 36.7; O2SAT 93; O2SAT 96; BMI 30.7
[2023-04-21] MEDS: Ondansetron ODT 4 MG TAB.RAPDIS TRANSLINGU ×2 (17:26→20:18)
[2023-04-21] MEDS: Morphine Sulfate 4 MG/ML CARTRIDGE IM (17:26)
[2023-04-21 17:58] LABS: MANUAL DIFF FLAG NO
[2023-04-21 18:16] LABS: Basophils Percent Auto 0.3 % (0-2); Eosinophils Absolute Auto 0.2 X10*3/uL (0.0-0.4); Eosinophils Percent Auto 2.3 % (0-4); Hematocrit 33.8 % (37.0-47.0); Hemoglobin 10.8 g/dl (12.0-16.0); Imm Gran Abs Auto 0.09 X10*3/uL (0.00-0.03); Lymphocytes Absolute Auto 1.5 X10*3/uL (1.2-4.9); Lymphocytes Percent Auto 16.6 % (20-40); Mean Corpuscular Hemoglobin 26.4 pg (27.0-33.0); Mean Corpuscular Volume 82.6 fL (80.0-98.0); Mean Platelet Volume 10.1 fL (9.4-12.3); Monocytes Absolute Auto 0.5 X10*3/uL (0.1-1.2); Monocytes Percent Auto 5.9 % (2-11); Neutrophils Absolute Auto 6.8 x10*3/uL (2.0-8.3); Neutrophils Percent Auto 73.9 % (45-73); Platelet Count 176 X10*3/uL (160-400); Red Blood Count 4.09 X10*6/uL (4.20-5.50); Red Cell Distribution Width 16.3 % (11.0-16.0); White Blood Count 9.2 X10*3/uL (4.8-10.8)
[2023-04-21 18:17] LABS: Alanine Aminotransferase 8 U/L (0-31); Alkaline Phosphatase 210 U/L (39-117); Anion Gap 14 (12-20); Aspartate Amino Transferase 12 U/L (5-31); Bilirubin Total 0.2 mg/dL (0.0-1.0); Blood Urea Nitrogen 22 mg/dL (9-16); COVID-19 Test Negative (Negative); Calcium 8.1 mg/dL (8.4-10.2); Carbon Dioxide 26 mmol/L (22-29); Chloride 102 mmol/L (96-108); Creatinine Clr Calc Pharmacy 13.1; Estimated Glomerular Filt Rate 14; Glucose Random 251 mg/dL (60-115); IDNOW Serial# 55D5AD1C; Magnesium 1.7 mg/dL (1.6-2.6); Potassium 4.4 mmol/L (3.3-5.1); Sodium 138 mmol/L (135-145); Total Protein 6.4 g/dL (6.5-8.0)
--- NOTE | 2023-04-21 18:28 | ED_ITS ---
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 She received 1 dose of ceftriaxone yesterday and was discharged on cephalexin Patient reports her abdominal pain has greatly improved She does not feel that she can sit through dialysis which is why she did not go today due to her diarrhea and vomiting Patient denies any fevers, chills Related Data Home Medications Medication Instructions Recorded Confirmed aspirin 81 mg tablet,delayed 81 mg PO BEDTIME 06/20/21 04/21/23 release atorvastatin 80 mg tablet 80 mg PO BEDTIME 06/20/21 04/21/23 clopidogrel 75 mg tablet 75 mg PO DAILY 06/20/21 04/21/23 trazodone 50 mg tablet 50 mg PO BEDTIME 06/20/21 04/21/23 insulin glargine 100 unit/mL (3 20 unit subcut DAILY 03/25/22 04/21/23 mL) subcutaneous pen (Lantus Solostar U-100 Insulin) ipratropium 0.5 mg-albuterol 3 mg 3 ml inhalation Q4H PRN Wheezing 05/05/22 04/21/23 (2.5 mg base)/3 mL nebulization soln furosemide 40 mg tablet (Lasix) 40 mg PO DAILY 10/14/22 04/21/23 insulin lispro 100 unit/mL See Protocol subcut QIDACHS 10/14/22 04/21/23 subcutaneous solution (Humalog U-100 Insulin) acetaminophen 500 mg tablet 1,000 mg PO Q6H PRN Fever Or Pain 10/15/22 04/21/23 melatonin 3 mg tablet 3 mg PO BEDTIME 12/27/22 04/21/23 pantoprazole 40 mg tablet,delayed 40 mg PO DAILY 12/27/22 04/21/23 release tamsulosin 0.4 mg capsule 0.8 mg PO BEDTIME 12/27/22 04/21/23 amlodipine 5 mg tablet 5 mg PO DAILY 04/20/23 04/21/23 carvedilol 6.25 mg tablet 6.25 mg PO BIDWM 04/20/23 04/21/23 magnesium oxide 400 mg (241.3 mg 400 mg PO DAILY 04/20/23 04/21/23 magnesium) tablet Previous Rx's Medication Instructions Recorded bethanechol chloride 25 mg tablet 25 mg PO BID #60 tabs 10/19/22 albuterol sulfate 90 mcg/actuation 1 inh inhalation QID PRN shortness 03/16/23 aerosol inhaler of breath or wheezing #8.5 grams Allergies Allergy/AdvReac Type Severity Reaction Status Date / Time latex [LATEX] Allergy Intermediate ITCHY Verified 04/20/23 13:04 Review of Systems Constitutional: Constitutional: Reports as per HPI, Denies chills, Denies fatigue, Denies fever(s) and Denies headache(s) ENT: Denies headache(s) Cardiovascular: Cardiovascular: Denies chest pain and Denies dyspnea Respiratory: Respiratory: Denies cough and Denies dyspnea Gastrointestinal: Gastrointestinal: Reports abdominal pain, Denies melena, Denies hematochezia, Denies constipation, Reports diarrhea, Reports nausea and Reports vomiting Genitourinary: Genitourinary: Denies dysuria Neurologic: Denies headache(s) and Denies focal weakness Endocrine: Endocrine: Denies fatigue PMFSH Past Medical History Medical History Acute on chronic renal failure Chronic heart failure with preserved ejection fraction (HFpEF) CKD (chronic kidney disease) stage 4, GFR 15-29 ml/min Congestive heart failure Constipation Diabetes mellitus End stage renal disease Essential hypertension Gastroparesis GERD (gastroesophageal reflux disease) HLD (hyperlipidemia) Hypomagnesemia Irritable bowel syndrome with diarrhea Ischemic necrosis of finger Non-ST elevated myocardial infarction Nonischemic cardiomyopathy Normocytic anemia Status post amputation of finger Thrombocytopenia Urinary tract infection due to ESBL Klebsiella Surgical History H/O surgical amputation of finger H/O: hysterectomy History of esophagogastroduodenoscopy (EGD) History of intestinal surgery History of laparoscopic cholecystectomy Hx of colonoscopy Hx of eye surgery Family History Family History Father Lung cancer Mother Diabetes HTN (hypertension) Heart disease Sister Diabetes Heart disease Brother Heart disease Son Diabetes Daughter Diabetes Social History Social History Household Members: Other Household Members Other:: SNF Housing: Retirement Do you presently have visiting nurse or other home services: No Unable to assess alcohol history related to: Unknown Alcohol intake: never Patient Tobacco Use Status: Never used Tobacco Smoked in Last 30 Days: No Second Hand Smoke Exposure: No Use of substances other than those prescribed or required for medical reasons: No Advance Directives: Yes Advance Directives on File: Yes Advance Directives Date on File: 01/04/23 service: No Current occupational status: disabled Physical Exam ED Vital Signs: Vital Signs - 24 hr 04/21/23 15:51 Temperature 98.0 F Pulse Rate 75 Respiratory Rate 18 Blood Pressure 138/56 L Pulse Oximetry 96 Oxygen Delivery Method Room Air BMI result Body Mass Index 30.7 Const General: healthy appearing, comfortable, no acute distress, alert and awake Nutritional Appearance: well nourished Orientation/consciousness: patient oriented x3 HENMT Head: Yes normocephalic and Yes atraumatic Eyes Eyelids: Yes eyelids normal Conjunctivae: conjunctivae normal Sclerae: sclerae normal Corneas: corneas normal Pupils: Equal, round and reactive pupils present EOM: EOMs intact bilaterally Neck Neck: Yes full ROM Resp Effort & Inspection: normal respiratory effort, able to speak in complete sentences, no audible wheezes and not labored Auscultation: clear to auscultation bilaterally Cardio Rate: regular rate Rhythm: regular rhythm GI Inspection: No distended Palpation (GI): Soft to palpation, not firm, nontender, no guarding and not rigid Auscultation: normoactive bowel sounds Skin General skin exam: elasticity normal Neuro General: patient oriented x3 Cranial nerves: Yes Equal, round and reactive pupils present and Yes Bilaterally intact EOM present Cognition (Neuro): normal cognition Course Reevaluation(s) Reevaluation #1: Patient's chest x-ray shows concern for bibasilar opacities, the patient has no respiratory symptoms, this is less likely pneumonia and more likely to be atelectasis. She has no cough, no leukocytosis or fever. Time: 18:36 Reevaluation #2: Page placed to Nephrology to discuss if the patient can be discharged to get outpatient dialysis scheduled tomorrow Time: 19:45 Reevaluation #3: Received call back from Dr. Monroe, he would like the patient admitted to the hospital for dialysis tomorrow because he is unsure if she could be scheduled for outpatient dialysis tomorrow and does not want her to wait until Monday Time: 21:50 Medications Administered Discontinued Medications Generic Name Dose Route Start Last Admin Trade Name Wang PRN Reason Stop Dose Admin Lorazepam 2 mg 04/21/23 19:56 04/21/23 20:05 Lorazepam 1 Mg Tablet PO 04/21/23 19:57 2 mg ONCE ONE Administration Morphine Sulfate 4 mg 04/21/23 17:12 04/21/23 17:26 Morphine Sulfate 4 Mg/Ml Cartridge IM 04/21/23 17:13 4 mg ONCE ONE Administration Protocol Ondansetron HCl 4 mg 04/21/23 17:12 04/21/23 17:26 Ondansetron Odt 4 Mg Tab.Rapdis TRANSLINGU 04/21/23 17:13 4 mg ONCE ONE Administration Ondansetron HCl 4 mg 04/21/23 20:09 04/21/23 20:18 Ondansetron Odt 4 Mg Tab.Rapdis TRANSLINGU 04/21/23 20:10 4 mg ONCE ONE Administration Medical Decision Making Medical Decision Making MDM Narrative: 68-year-old female presents for evaluation of nausea and vomiting as well as diarrhea. Her abdominal pain is improved, her abdominal exam is reassuring, she is nontender, nondistended. Patient is a dialysis patient and missed dialysis today. He labs to assess for leukocytosis and evaluate to yesterday's labs. I do not feel that a repeat CT scan is appropriate this time as the patient's pain is improving and her physical exam is reassuring. Her pain that is improving as well as the diarrhea. Will get a GI panel if the patient can provide 1 but I feel that C diff is less likely as she just started antibiotics yesterday. She may have a viral gastroenteritis. Patient's potassium is normal at 4.4 today, her glucose is elevated to 251. Liver enzymes are consistent with her recent baseline and slightly elevated. Her total bilirubin is normal at 0.2, so less likely to be obstructive biliary disease. Furthermore, the patient has had multiple bowel movements today, so obstruction is felt to be less likely as well Differential Diagnosis Gastroenteritis Acute nausea/vomiting Diarrhea Colitis Diverticulitis Obstruction Admission/Observation Consideration of admission/observation: Escalation of care including admission/observation considered Patient had repeat visit within 2 days for similar complaints. After discussion with extender, he wants her admitted for dialysis tomorrow Consult Healthcare Provider Management of the patient was discussed with: Hospitalist and Postdoctoral Research Associate (Nephrology recommends admission for dialysis) Lab Data MDM Lab Attestation statement: I reviewed the patient's lab results. No leukocytosis, mild baseline anemia which is likely related to anemia of chronic disease. Hemoglobin 10.8 with hematocrit of 33.8. Normal platelet count. Elevated renal function which is consistent with dialysis history. Otherwise electrolytes within normal limits, glucose elevated but no evidence of DKA 04/21/23 17:54 04/21/23 17:54 Labs: Lab Results 04/21/23 04/21/23 04/21/23 Range/Units 17:54 17:54 17:54 WBC 9.2 (4.8-10.8) X10*3/uL RBC 4.09 L (4.20-5.50) X10*6/uL Hgb 10.8 L (12.0-16.0) g/dl Hct 33.8 L (37.0-47.0) % MCV 82.6 (80.0-98.0) fL MCH 26.4 L (27.0-33.0) pg MCHC 32.0 (31.0-35.0) g/dl RDW 16.3 H (11.0-16.0) % Plt Count 176 (160-400) X10*3/uL MPV 10.1 (9.4-12.3) fL Immature Gran % (Auto) 1.0 H (0.0-0.4) % Neut % (Auto) 73.9 H (45-73) % Lymph % (Auto) 16.6 L (20-40) % [place] % (Auto) 5.9 (2-11) % Eos % (Auto) 2.3 (0-4) % Baso % (Auto) 0.3 (0-2) % Lymph # (Auto) 1.5 (1.2-4.9) X10*3/uL [place] # (Auto) 0.5 (0.1-1.2) X10*3/uL Eos # (Auto) 0.2 (0.0-0.4) X10*3/uL Baso # (Auto) 0.0 (0.0-0.2) X10*3/uL Abs Immat Gran (auto) 0.09 H (0.00-0.03) X10*3/uL Absolute Neuts (auto) 6.8 (2.0-8.3) x10*3/uL Absolute Nucleated RBC 0.000 (0.0-0.012) X10*3/uL Nucleated RBC % (auto) 0.0 (0.0-0.2) /100WBC Sodium 138 (135-145) mmol/L Potassium 4.4 (3.3-5.1) mmol/L Chloride 102 (96-108) mmol/L Carbon Dioxide 26 (22-29) mmol/L Anion Gap 14 (12-20) BUN 22 H (9-16) mg/dL Creatinine 3.23 H (0.5-1.4) mg/dL Estim Creat Clear Calc 13.1 Estimated GFR 14 Random Glucose 251 H (60-115) mg/dL Calcium 8.1 L (8.4-10.2) mg/dL Magnesium 1.7 (1.6-2.6) mg/dL Total Bilirubin 0.2 (0.0-1.0) mg/dL AST 12 (5-31) U/L ALT 8 (0-31) U/L Alkaline Phosphatase 210 H (39-117) U/L Total Protein 6.4 L (6.5-8.0) g/dL Albumin 3.0 L (3.5-5.0) g/dL COVID-19 (LUCIUS) Negative (Negative) COVID-19 Clin Com See Note Independent Interpretation I performed an independent interpretation of an: Plain X-Ray Interpretation: Mild CHF Radiology Impression Discussion of test interpretation with radiology: I have reviewed the radiologist's reading. Radiologist Impression: Small bilateral pleural effusions and bibasilar opacities left greater than right Discharge Plan Discharge Clinical Impression: Vomiting, Chronic kidney disease Patient Disposition: Admitted As Inpatient
[2023-04-21] MEDS: LORazepam 1 MG TABLET 2 MG PO (20:05)
--- NOTE | 2023-04-21 22:01 | P.HPHOSP_ITS ---
History of Present Illness Date of Service: 04/21/23 Chief Complaint: Abdominal Pain This is a 68-year-old female with pertinent history of ESRD on HD, congestive heart failure with reduced ejection fraction, insulin-dependent type 2 diabetes mellitus, essential hypertension, mixed hyperlipidemia, chronic opioid use, mood disorder, urinary retention, gastroesophageal reflux disease who presents to the emergency department for evaluation of abdominal pain and vomiting. Patient presented to the ER 1 day prior to presentation for similar complaints. CT scan was done which did not reveal any acute abnormality. UA revealed acute UTI and PA shunt was discharged on p.o. antibiotics. She states that she continued to have vomiting with abdominal pain and increased urinary frequency. Patient missed her dialysis session today due to ongoing symptoms. She denies fever, chills, chest discomfort, palpitations, shortness of breath. In the emergency department, Nephrology was consulted who requested admission as patient missed her dialysis session Review of Systems Constitutional: Constitutional: Reports fatigue Cardiovascular: Cardiovascular: Reports no additional cardiovascular complaints Respiratory: Respiratory: Reports no additional respiratory complaints Gastrointestinal: Gastrointestinal: Reports abdominal pain, Reports nausea and Reports vomiting Genitourinary: Genitourinary: Reports urinary urgency Endocrine: Endocrine: Reports fatigue [facility] Medical History Acute on chronic renal failure Chronic heart failure with preserved ejection fraction (HFpEF) CKD (chronic kidney disease) stage 4, GFR 15-29 ml/min Congestive heart failure Constipation Diabetes mellitus End stage renal disease Essential hypertension Gastroparesis GERD (gastroesophageal reflux disease) HLD (hyperlipidemia) Hypomagnesemia Irritable bowel syndrome with diarrhea Ischemic necrosis of finger Non-ST elevated myocardial infarction Nonischemic cardiomyopathy Normocytic anemia Status post amputation of finger Thrombocytopenia Urinary tract infection due to ESBL Klebsiella Family History Father Lung cancer Mother Diabetes HTN (hypertension) Heart disease Sister Diabetes Heart disease Brother Heart disease Son Diabetes Daughter Diabetes Surgical History H/O surgical amputation of finger H/O: hysterectomy History of esophagogastroduodenoscopy (EGD) History of intestinal surgery History of laparoscopic cholecystectomy Hx of colonoscopy Hx of eye surgery Social History Household Members: Other Household Members Other:: SNF Housing: Longterm Do you presently have visiting nurse or other home services: No Unable to assess alcohol history related to: Unknown Alcohol intake: never Patient Tobacco Use Status: Never used Tobacco Smoked in Last 30 Days: No Second Hand Smoke Exposure: No Use of substances other than those prescribed or required for medical reasons: No Advance Directives: Yes Advance Directives on File: Yes Advance Directives Date on File: 01/04/23 service: No Current occupational status: disabled Meds Allergies Allergy/AdvReac Type Severity Reaction Status Date / Time latex [LATEX] Allergy Intermediate ITCHY Verified 04/20/23 13:04 Home Medications Medication Instructions Recorded Confirmed Last Taken Type aspirin 81 mg tablet,delayed 81 mg PO BEDTIME 06/20/21 04/21/23 02/19/23 History release atorvastatin 80 mg tablet 80 mg PO BEDTIME 06/20/21 04/21/23 10/13/22 History clopidogrel 75 mg tablet 75 mg PO DAILY 06/20/21 04/21/23 02/19/23 History trazodone 50 mg tablet 50 mg PO BEDTIME 06/20/21 04/21/23 10/13/22 History insulin glargine 100 unit/mL (3 20 unit subcut DAILY 03/25/22 04/21/23 02/19/23 20:00 History mL) subcutaneous pen (Lantus 20 units Solostar U-100 Insulin) ipratropium 0.5 mg-albuterol 3 mg 3 ml inhalation Q4H PRN Wheezing 05/05/22 04/21/23 Unknown History (2.5 mg base)/3 mL nebulization soln furosemide 40 mg tablet (Lasix) 40 mg PO DAILY 10/14/22 04/21/23 10/14/22 History insulin lispro 100 unit/mL See Protocol subcut QIDACHS 10/14/22 04/21/23 02/19/23 History subcutaneous solution (Humalog U-100 Insulin) acetaminophen 500 mg tablet 1,000 mg PO Q6H PRN Fever Or Pain 10/15/22 04/21/23 Unknown History melatonin 3 mg tablet 3 mg PO BEDTIME 12/27/22 04/21/23 Unknown History pantoprazole 40 mg tablet,delayed 40 mg PO DAILY 12/27/22 04/21/23 Unknown History release tamsulosin 0.4 mg capsule 0.8 mg PO BEDTIME 12/27/22 04/21/23 Unknown History amlodipine 5 mg tablet 5 mg PO DAILY 04/20/23 04/21/23 Unknown History carvedilol 6.25 mg tablet 6.25 mg PO BIDWM 04/20/23 04/21/23 Unknown History magnesium oxide 400 mg (241.3 mg 400 mg PO DAILY 04/20/23 04/21/23 Unknown History magnesium) tablet Physical Exam Vital Signs and Narrative: Vital Signs: Last Vital Signs Temp 98.0 F 04/21/23 15:51 Pulse 75 04/21/23 15:51 Resp 18 04/21/23 15:51 BP 138/56 L 04/21/23 15:51 Pulse Ox 96 04/21/23 15:51 O2 Del Method Room Air 04/21/23 15:51 BMI result Body Mass Index 30.7 Elderly female lying in bed in no distress Neck supple, no JVD Regular rate and rhythm, S1-S2 heard Regular breath sounds bilaterally, no wheezing or crackles appreciated Abdomen soft nontender, no guarding, no rigidity, no CVA tenderness Patient is awake, alert and oriented to self, place, time and person ; no focal motor deficit Psych: Normal mood Results Labs 04/21/23 17:54 04/21/23 17:54 Labs: Laboratory Results - last 24 hr 04/21/23 04/21/23 04/21/23 17:54 17:54 17:54 MCV 82.6 MCH 26.4 L MCHC 32.0 RDW 16.3 H Plt Count 176 MPV 10.1 Immature Gran % (Auto) 1.0 H Neut % (Auto) 73.9 H Lymph % (Auto) 16.6 L [place] % (Auto) 5.9 Eos % (Auto) 2.3 Baso % (Auto) 0.3 Lymph # (Auto) 1.5 [place] # (Auto) 0.5 Eos # (Auto) 0.2 Baso # (Auto) 0.0 Abs Immat Gran (auto) 0.09 H Absolute Neuts (auto) 6.8 Absolute Nucleated RBC 0.000 Nucleated RBC % (auto) 0.0 Anion Gap 14 Estim Creat Clear Calc 13.1 Estimated GFR 14 Random Glucose 251 H Calcium 8.1 L Magnesium 1.7 Total Bilirubin 0.2 AST 12 ALT 8 Alkaline Phosphatase 210 H Total Protein 6.4 L Albumin 3.0 L COVID-19 (LUCIUS) Negative COVID-19 Clin Com See Note Imaging Radiologist's Impressions: Impressions Chest X-Ray 04/21/23 17:20 IMPRESSION: 1. Similar small bilateral pleural effusions and bibasilar opacities left greater than right. Assessment and Plan (1) Dialysis patient, noncompliant: Status: Acute Plan This is a 68-year-old female with pertinent history of ESRD on HD, congestive heart failure with reduced ejection fraction, insulin-dependent type 2 diabetes mellitus, essential hypertension, mixed hyperlipidemia, chronic opioid use, mood disorder, urinary retention, gastroesophageal reflux disease who presents to the emergency department for evaluation of abdominal pain and vomiting. #.? Missed dialysis session. Nephrology was consulted from the ER who requested admission for possible hemodialysis tomorrow. #.? Acute UTI: Initiating empiric IV Rocephin. Follow urine culture from 04/20 #.? Congestive heart failure with reduced ejection fraction #.? Essential hypertension -Conintue home diuretics and antihypertensives #.? History of CVA: on plavix, aspirin and high-intensity statin #.? Insulin-dependent type 2 diabetes mellitus with hyperglycemia:? Reduce basal insulin.? Initiating Accu-Cheks with sliding scale insulin before meals and at bedtime #.? Urinary retention: On bethanechol and tamsulosin #.? Anemia of chronic kidney disease #. Mood disorder. On trazodone Med rec pending DVT prophylaxis: Heparin Full code Low-salt diet Time Spent With Patient Time: Total time managing care of this patient today ____ minutes. Quality Stroke Does the patient have a stroke diagnosis?: No VTE Prior VTE?: No VTE Risk Level:: Medical - moderate - high VTE Device Contraindication: Treatment Not Indicated VTE Drug Contraindication: N/A - Med Ordered
--- NOTE | 2023-04-21 22:01 | PHA.MEDREC ---
Pharmacy Consult ? Medication Reconciliation Pharmacy has completed the medication reconciliation. 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 STATES NOTHING HAS CHANGED IN MEDS SINCE LAST VISIT. SEE NOTE FROM 03/31 MED REC Patient does not know what medications she is taking. I called [facility] and spoke to pharmacist there. Patient was scene recently there, and med list was updated by their resident. Per provider notes, patient IS still on bethanecol, protonix, and tamsulosin. Tamsulosin is 2 caps at bedtime
[2023-04-21] MEDS: cefTRIAXone sodium 1 GM in 0.9 % Sodium Chloride 50 ML IV (23:03)
[2023-04-21] MEDS: traZODone HCL 50 MG TABLET PO (23:03)
[2023-04-21] MEDS: Heparin Sodium,Porcine 5,000 UNIT/ML VIAL 5000 UNIT SUBCUT (23:04)
[2023-04-21] MEDS: 0.9 % Sodium Chloride Flush 3 ML SYRINGE IVFLUSH (23:07)
--- NOTE | 2023-04-21 23:13 | PC.NURSE ---
20g IV placed in the right AC, antibiotics running and pt medicated per MAR. Pt denies pain. Pt still A&Ox4, GCS 15. Waiting bed assignment at this time.
[2023-04-22] VITALS: BP 154/60; PULSE 78; RESP 18; TEMP 36.4; O2SAT 94
[2023-04-22 00:33] VITALS: BMI 30.7
[2023-04-22 03:30] VITALS: BP 131/66; PULSE 76; RESP 18; TEMP 36.8; O2SAT 96
[2023-04-22 07:20] LABS: MANUAL DIFF FLAG NO
[2023-04-22 07:23] LABS: Basophils Percent Auto 0.4 % (0-2); Eosinophils Absolute Auto 0.1 X10*3/uL (0.0-0.4); Eosinophils Percent Auto 1.7 % (0-4); Hematocrit 30.8 % (37.0-47.0); Hemoglobin 9.6 g/dl (12.0-16.0); Imm Gran Abs Auto 0.07 X10*3/uL (0.00-0.03); Imm Gran Pct Auto 0.9 % (0.0-0.4); Lymphocytes Absolute Auto 1.6 X10*3/uL (1.2-4.9); Lymphocytes Percent Auto 20.1 % (20-40); Mean Corpuscular HGB Conc 31.2 g/dl (31.0-35.0); Mean Corpuscular Hemoglobin 25.7 pg (27.0-33.0); Mean Corpuscular Volume 82.6 fL (80.0-98.0); Mean Platelet Volume 10.7 fL (9.4-12.3); Monocytes Absolute Auto 0.4 X10*3/uL (0.1-1.2); Monocytes Percent Auto 5.4 % (2-11); Neutrophils Absolute Auto 5.8 x10*3/uL (2.0-8.3); Neutrophils Percent Auto 71.5 % (45-73); Platelet Count 178 X10*3/uL (160-400); Red Blood Count 3.73 X10*6/uL (4.20-5.50); Red Cell Distribution Width 16.4 % (11.0-16.0); White Blood Count 8.1 X10*3/uL (4.8-10.8)
[2023-04-22 07:37] VITALS: BP 128/58; PULSE 80; RESP 17; TEMP 36.6; O2SAT 95
[2023-04-22 07:37] LABS: Glucose, Whole Blood 185 mg/dL (60-115)
[2023-04-22 07:44] LABS: Anion Gap 13 (12-20); Blood Urea Nitrogen 24 mg/dL (9-16); Calcium 7.8 mg/dL (8.4-10.2); Carbon Dioxide 27 mmol/L (22-29); Chloride 104 mmol/L (96-108); Creatinine Clr Calc Pharmacy 11.8; Estimated Glomerular Filt Rate 13; Glucose Random 193 mg/dL (60-115); Potassium 3.8 mmol/L (3.3-5.1); Sodium 140 mmol/L (135-145)
--- NOTE | 2023-04-22 08:03 | P.CONNP_ITS ---
History of Present Illness Reason for Consult Consult date: 04/22/23 Chief Complaint Chief complaint: Abdominal Pain History of Present Illness Narrative: 68-year-old female with history of ESRD presented to the emergency department for evaluation of abdominal pain and vomiting.? She missed her dialysis treatment and was subsequently admitted . CT scan abdomendid not reveal any acute abnormality.? Review of Systems Review of Systems 10 points ROS negative except for pertinent in [facility]PI [facility] Past Medical History Medical History (Updated 04/22/23 @ 08:11 by Leo Monroe MD) Acute on chronic renal failure Chronic heart failure with preserved ejection fraction (HFpEF) CKD (chronic kidney disease) stage 4, GFR 15-29 ml/min Congestive heart failure Constipation Diabetes mellitus End stage renal disease Essential hypertension Gastroparesis GERD (gastroesophageal reflux disease) HLD (hyperlipidemia) Hypomagnesemia Irritable bowel syndrome with diarrhea Ischemic necrosis of finger Non-ST elevated myocardial infarction Nonischemic cardiomyopathy Normocytic anemia Status post amputation of finger Thrombocytopenia Urinary tract infection due to ESBL Klebsiella Family History Family History Father Lung cancer Mother Diabetes HTN (hypertension) Heart disease Sister Diabetes Heart disease Brother Heart disease Son Diabetes Daughter Diabetes Surgical History Surgical History H/O surgical amputation of finger H/O: hysterectomy History of esophagogastroduodenoscopy (EGD) History of intestinal surgery History of laparoscopic cholecystectomy Hx of colonoscopy Hx of eye surgery Social History Social History Household Members: Other Household Members Other:: SNF Housing: Care Home Do you presently have visiting nurse or other home services: No Unable to assess alcohol history related to: Unknown Alcohol intake: never Patient Tobacco Use Status: Never used Tobacco Smoked in Last 30 Days: No Second Hand Smoke Exposure: No Use of substances other than those prescribed or required for medical reasons: No Advance Directives: Yes Advance Directives on File: Yes Advance Directives Date on File: 01/04/23 service: No Current occupational status: disabled Meds Allergies Allergy/AdvReac Type Severity Reaction Status Date / Time latex [LATEX] Allergy Intermediate ITCHY Verified 04/20/23 13:04 Active Medications: Current Medications Acetaminophen (Acetaminophen 325 Mg Tablet) 650 mg PO Q6H PRN PRN Reason: Pain, Mild (Pain Scale 1-3) Dextrose (Dextrose 50 % 25 Gm/50 Ml Syringe) 25 gm IVPUSH Q15M PRN; Protocol PRN Reason: per Hypoglycemia Standing Ord. Glucose (Glucose Gel 15 Gm Gel..Gram.) 15 gm PO Q15M PRN; Protocol PRN Reason: per Hypoglycemia Standing Ord. Heparin Sodium (Porcine) (Heparin Sodium,Porcine 5,000 Unit/Ml Vial) 5,000 unit SUBCUT Q12H [facility] Last Admin: 04/21/23 23:04 Dose: 5,000 unit Ceftriaxone Sodium 1 gm/ (Sodium Chloride) 50 mls @ 100 mls/hr IV Q24H [facility] Last Infusion: 04/21/23 23:33 Dose: Infused Insulin Glargine (Insulin Glargine,Hum.Rec.Anlog 100 Unit/Ml 10 Ml Vial) 15 unit SUBCUT DAILY [facility] Insulin Human Lispro (Insulin Lispro 100 Unit/Ml 3 Ml Vial) 0 unit SUBCUT QIDACHS [facility]; Protocol Melatonin (Melatonin 3 Mg Tablet) 6 mg PO BEDTIME PRN PRN Reason: Insomnia Ondansetron HCl (Ondansetron Hcl 4 Mg/2 Ml Vial) 4 mg IVPUSH Q8H PRN PRN Reason: Nausea and Vomiting Pharmacy Consult (Consult Rx Perform Med Rec) 1 each MISCELLANE ONCE PRN PRN Reason: Consult order Sodium Chloride (0.9 % Sodium Chloride Flush 3 Ml Syringe) 3 ml IVFLUSH QSHIFT [facility] Last Admin: 04/21/23 23:07 Dose: 3 ml Trazodone HCl (Trazodone Hcl 50 Mg Tablet) 50 mg PO BEDTIME [facility] Last Admin: 04/21/23 23:03 Dose: 50 mg Home Medications Medication Instructions Recorded Confirmed Last Taken Type aspirin 81 mg tablet,delayed 81 mg PO BEDTIME 06/20/21 04/21/23 02/19/23 History release atorvastatin 80 mg tablet 80 mg PO BEDTIME 06/20/21 04/21/23 10/13/22 History clopidogrel 75 mg tablet 75 mg PO DAILY 06/20/21 04/21/23 02/19/23 History trazodone 50 mg tablet 50 mg PO BEDTIME 06/20/21 04/21/23 10/13/22 History insulin glargine 100 unit/mL (3 20 unit subcut DAILY 03/25/22 04/21/23 02/19/23 20:00 History mL) subcutaneous pen (Lantus 20 units Solostar U-100 Insulin) ipratropium 0.5 mg-albuterol 3 mg 3 ml inhalation Q4H PRN Wheezing 05/05/22 04/21/23 Unknown History (2.5 mg base)/3 mL nebulization soln furosemide 40 mg tablet (Lasix) 40 mg PO DAILY 10/14/22 04/21/23 10/14/22 History insulin lispro 100 unit/mL See Protocol subcut QIDACHS 10/14/22 04/21/23 02/19/23 History subcutaneous solution (Humalog U-100 Insulin) acetaminophen 500 mg tablet 1,000 mg PO Q6H PRN Fever Or Pain 10/15/22 04/21/23 Unknown History melatonin 3 mg tablet 3 mg PO BEDTIME 12/27/22 04/21/23 Unknown History pantoprazole 40 mg tablet,delayed 40 mg PO DAILY 12/27/22 04/21/23 Unknown History release tamsulosin 0.4 mg capsule 0.8 mg PO BEDTIME 12/27/22 04/21/23 Unknown History amlodipine 5 mg tablet 5 mg PO DAILY 04/20/23 04/21/23 Unknown History carvedilol 6.25 mg tablet 6.25 mg PO BIDWM 04/20/23 04/21/23 Unknown History magnesium oxide 400 mg (241.3 mg 400 mg PO DAILY 04/20/23 04/21/23 Unknown History magnesium) tablet Physical Exam Vital Signs: Last Vital Signs Temp 97.8 F 04/22/23 07:37 Pulse 80 04/22/23 07:37 Resp 17 04/22/23 07:37 BP 128/58 L 04/22/23 07:37 Pulse Ox 95 04/22/23 07:37 O2 Del Method Room Air 04/22/23 07:37 BMI result Body Mass Index 30.7 Const General: alert and awake HEENT Head: Yes normocephalic and Yes atraumatic Neck Neck: Yes supple Resp Auscultation: diminished lung sounds Cardio Heart sounds: S1 normal heart sound present and S2 normal heart sound present GI Palpation (GI): Soft to palpation and nontender Extrem Right upper extremity: no edema Results Lab Results 04/22/23 05:52 04/22/23 05:52 Lab results: Chemistry 04/21/23 04/22/23 17:54 05:52 Sodium 138 140 Potassium 4.4 3.8 Carbon Dioxide 26 27 BUN 22 H 24 H Creatinine 3.23 H 3.58 H Calcium 8.1 L 7.8 L Hematology 04/21/23 04/22/23 17:54 05:52 WBC 9.2 8.1 Hgb 10.8 L 9.6 L Plt Count 176 178 Assessment and Plan (1) End stage renal disease: Status: Acute (2) Anemia: Status: Inactive Plan HD today optimize volume status renal diet phosphate binders GABE Time Spent With Patient Time: Total time managing care of this patient today ____ minutes. Procedures Date of Service Date of Service: 04/22/23
[2023-04-22] MEDS: ondansetron HCL 4 MG/2 ML VIAL IVPUSH ×2 (08:16→16:25)
--- NOTE | 2023-04-22 11:28 | HO.PM.IMPN ---
Subjective Subjective Date of Service: 04/22/23 Interval History: Patient seen during hemodialysis, feeling better denies abdominal pain and nausea, no shortness of breath, no chest pain, no lightheadedness or dizziness, and no other acute events since admission. Review of Systems All other systems reviewed and negative. Physical Exam Vital Signs: Vital Signs: Last Vital Signs Temp 97.8 F 04/22/23 07:37 Pulse 80 04/22/23 07:37 Resp 17 04/22/23 07:37 BP 128/58 L 04/22/23 07:37 Pulse Ox 95 04/22/23 07:37 O2 Del Method Room Air 04/22/23 07:37 BMI result Body Mass Index 30.7 Const: Other: General ? Awake alert, resting comfortably in no acute distress.? Neck? supple no JVD. CVS? regular rate rhythm, Respiratory lungs clear to auscultation, no respiratory distress, no wheeze, no rhonchi. Gastrointestinal abdomen soft, nontender, bowel sounds audible, no guarding , no rigidity. 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 Skin no rash psych appropriate affect Objective Data Active Medications Acetaminophen (Acetaminophen 325 Mg Tablet) 650 mg PO Q6H PRN PRN Reason: Pain, Mild (Pain Scale 1-3) Albuterol Sulfate (Albuterol Sulfate 90 Mcg 8 Gm Inhaler) 1 puff INHALE QID PRN PRN Reason: shortness of breath or wheezing Albuterol/Ipratropium (Albuterol/Iprat 2.5/0.5mg 3 Ml Ampul.Neb) 3 ml INHALE Q4H PRN PRN Reason: Wheezing Amlodipine Besylate (Amlodipine Besylate 5 Mg Tablet) 5 mg PO DAILY [facility]; Protocol Aspirin (Aspirin Enteric Coated 81 Mg Tablet.) 81 mg PO BEDTIME [facility] Atorvastatin Calcium (Atorvastatin Calcium 80 Mg Tablet) 80 mg PO BEDTIME [facility] Bethanechol Chloride (Bethanechol Chloride 25 Mg Tablet) 25 mg PO BID [facility] Carvedilol (Carvedilol 6.25 Mg Tablet) 6.25 mg PO BIDWM [facility]; Protocol Clopidogrel Bisulfate (Clopidogrel Bisulfate 75 Mg Tablet) 75 mg PO DAILY [facility] Dextrose (Dextrose 50 % 25 Gm/50 Ml Syringe) 25 gm IVPUSH Q15M PRN; Protocol PRN Reason: per Hypoglycemia Standing Ord. Glucose (Glucose Gel 15 Gm Gel..Gram.) 15 gm PO Q15M PRN; Protocol PRN Reason: per Hypoglycemia Standing Ord. Heparin Sodium (Porcine) (Heparin Sodium,Porcine 5,000 Unit/Ml Vial) 5,000 unit SUBCUT Q12H [facility] Last Admin: 04/21/23 23:04 Dose: 5,000 unit Documented By: DWAIN Ceftriaxone Sodium 1 gm/ (Sodium Chloride) 50 mls @ 100 mls/hr IV Q24H [facility] Last Infusion: 04/21/23 23:33 Dose: 0 mls/hr Documented By: DWAIN Insulin Glargine (Insulin Glargine,Hum.Rec.Anlog 100 Unit/Ml 10 Ml Vial) 15 unit SUBCUT DAILY [facility] Insulin Human Lispro (Insulin Lispro 100 Unit/Ml 3 Ml Vial) 0 unit SUBCUT QIDACHS [facility]; Protocol Magnesium Oxide (Magnesium Oxide 400 Mg Tablet) 400 mg PO DAILY [facility] Melatonin (Melatonin 3 Mg Tablet) 6 mg PO BEDTIME PRN PRN Reason: Insomnia Ondansetron HCl (Ondansetron Hcl 4 Mg/2 Ml Vial) 4 mg IVPUSH Q8H PRN PRN Reason: Nausea and Vomiting Last Admin: 04/22/23 08:16 Dose: 4 mg Documented By: MINERVA Pharmacy Consult (Consult Rx Perform Med Rec) 1 each MISCELLANE ONCE PRN PRN Reason: Consult order Sodium Chloride (0.9 % Sodium Chloride Flush 3 Ml Syringe) 3 ml IVFLUSH QSHIFT [facility] Last Admin: 04/21/23 23:07 Dose: 3 ml Documented By: DWAIN Tamsulosin HCl (Tamsulosin Hcl 0.4 Mg Capsule) 0.8 mg PO BEDTIME [facility] Trazodone HCl (Trazodone Hcl 50 Mg Tablet) 50 mg PO BEDTIME [facility] Last Admin: 04/21/23 23:03 Dose: 50 mg Documented By: DWAIN Labs 04/22/23 05:52 04/22/23 05:52 Labs: Laboratory Results - last 24 hr 04/21/23 04/21/23 04/21/23 17:54 17:54 17:54 MCV 82.6 MCH 26.4 L MCHC 32.0 RDW 16.3 H Plt Count 176 MPV 10.1 Immature Gran % (Auto) 1.0 H Neut % (Auto) 73.9 H Lymph % (Auto) 16.6 L Bullock % (Auto) 5.9 Eos % (Auto) 2.3 Baso % (Auto) 0.3 Lymph # (Auto) 1.5 Bullock # (Auto) 0.5 Eos # (Auto) 0.2 Baso # (Auto) 0.0 Abs Immat Gran (auto) 0.09 H Absolute Neuts (auto) 6.8 Absolute Nucleated RBC 0.000 Nucleated RBC % (auto) 0.0 Anion Gap 14 Estim Creat Clear Calc 13.1 Estimated GFR 14 POC Glucose Random Glucose 251 H Calcium 8.1 L Magnesium 1.7 Total Bilirubin 0.2 AST 12 ALT 8 Alkaline Phosphatase 210 H Total Protein 6.4 L Albumin 3.0 L COVID-19 ([facility]CIUS) Negative COVID-19 Clin Com See Note 04/22/23 04/22/23 04/22/23 05:52 05:52 07:34 MCV 82.6 MCH 25.7 L MCHC 31.2 RDW 16.4 H Plt Count 178 MPV 10.7 Immature Gran % (Auto) 0.9 H Neut % (Auto) 71.5 Lymph % (Auto) 20.1 Bullock % (Auto) 5.4 Eos % (Auto) 1.7 Baso % (Auto) 0.4 Lymph # (Auto) 1.6 Bullock # (Auto) 0.4 Eos # (Auto) 0.1 Baso # (Auto) 0.0 Abs Immat Gran (auto) 0.07 H Absolute Neuts (auto) 5.8 Absolute Nucleated RBC 0.000 Nucleated RBC % (auto) 0.0 Anion Gap 13 Estim Creat Clear Calc 11.8 Estimated GFR 13 POC Glucose 185 H Random Glucose 193 H Calcium 7.8 L Magnesium Total Bilirubin AST ALT Alkaline Phosphatase Total Protein Albumin COVID-19 ([facility]CIUS) COVID-19 Clin Com Assessment and Plan (1) End stage renal disease: Status: Acute (2) UTI (urinary tract infection): Status: Inactive Plan 68-year-old female with pertinent history of ESRD on HD, congestive heart failure with reduced ejection fraction, insulin-dependent type 2 diabetes mellitus, essential hypertension, mixed hyperlipidemia, chronic opioid use, mood disorder, urinary retention, gastroesophageal reflux disease who presents to the emergency department for evaluation of abdominal pain and vomiting. #.? End-stage renal disease on hemodialysis, receiving hemodialysis this morning being followed by Nephrology. #.? Abdominal pain, associated with nausea and vomiting due to acute UTI # Acute UTI: Continue IV Rocephin, urine culture positive for E coli sensitive to IV ceftriaxone. #.? Congestive heart failure with reduced ejection fraction #.? Essential hypertension -no acute CHF exacerbation, will resume home dose of diuretics and antihypertensive #.? History of CVA: on plavix, aspirin and high-intensity statin #.? Insulin-dependent type 2 diabetes mellitus with hyperglycemia:? Blood sugar 185, change diet to diabetic Continue basal insulin and insulin sliding scale insulin before meals and at bedtime #.? Urinary retention: On bethanechol and tamsulosin #.? Anemia of chronic kidney disease stable hematocrit #.? Mood disorder.? On trazodone DVT prophylaxis:? Heparin Full code Patient will need continued hospitalization for hemodialysis and IV antibiotic treatment. Time Spent With Patient Time: Total time managing care of this patient today ____ minutes. Quality Stroke Does the patient have a stroke diagnosis?: No VTE Prior VTE?: No VTE Risk Level:: Medical - moderate - high VTE Device Contraindication: Treatment Not Indicated VTE Drug Contraindication: N/A - Med Ordered
[2023-04-22 12:00] VITALS: BP 113/67; PULSE 70; RESP 18; TEMP 36.1; O2SAT 98
[2023-04-22 12:05] LABS: Glucose, Whole Blood 126 mg/dL (60-115)
[2023-04-22] MEDS: Insulin Glargine,Hum.rec.anlog 100 UNIT/ML 10 ML VIAL 15 UNIT SUBCUT (12:07)
[2023-04-22] MEDS: amLODIPine Besylate 5 MG TABLET PO (12:08)
[2023-04-22] MEDS: Clopidogrel Bisulfate 75 MG TABLET PO (12:08)
[2023-04-22] MEDS: Bethanechol Chloride 25 MG TABLET PO ×2 (12:08→20:24)
[2023-04-22] MEDS: Heparin Sodium,Porcine 5,000 UNIT/ML VIAL 5000 UNIT SUBCUT ×2 (12:08→22:15)
[2023-04-22] MEDS: Magnesium Oxide 400 MG TABLET PO (12:08)
--- NOTE | 2023-04-22 14:10 | MHC.CM.PN ---
CM ATTEMPTED TO MEET WITH PT WHO WAS OFF UNIT AT CM WILL REVISIT
[2023-04-22 15:49] VITALS: BP 131/60; PULSE 72; RESP 20; TEMP 36.7; O2SAT 96
[2023-04-22] MEDS: 0.9 % Sodium Chloride Flush 3 ML SYRINGE IVFLUSH ×2 (16:27→22:15)
[2023-04-22 16:33] LABS: Glucose, Whole Blood 132 mg/dL (60-115)
[2023-04-22 20:00] VITALS: BP 135/61; PULSE 72; RESP 18; TEMP 36.1; O2SAT 98
[2023-04-22 20:20] LABS: Glucose, Whole Blood 208 mg/dL (60-115)
[2023-04-22] MEDS: Tamsulosin HCL 0.4 MG CAPSULE 0.8 MG PO (20:23)
[2023-04-22] MEDS: Atorvastatin Calcium 80 MG TABLET PO (20:24)
[2023-04-22] MEDS: Aspirin Enteric Coated 81 MG TABLET.DR PO (20:24)
[2023-04-22] MEDS: traMADoL HCL 50 MG TABLET PO (20:27)
[2023-04-22] MEDS: traZODone HCL 50 MG TABLET PO (20:28)
[2023-04-22] MEDS: Insulin Lispro 100 UNIT/ML 3 ML VIAL SUBCUT (20:35)
[2023-04-22] MEDS: cefTRIAXone sodium 1 GM in 0.9 % Sodium Chloride 50 ML IV (22:14)
[2023-04-23] VITALS (7 sets, daily range): BP systolic 112–124; BP diastolic 54–58; PULSE 61–71; RESP 16–20; TEMP 35.6–36.7; O2SAT 95–100
--- NOTE | 2023-04-23 07:44 | PM.PNNEP ---
Subjective Subjective Date of Service: 04/23/23 Interval history: seen and examined had HD yesterday no complaints Physical Exam Vital Signs: Vital Signs: Last Vital Signs Temp 97.8 F 04/23/23 07:28 Pulse 66 04/23/23 07:28 Resp 18 04/23/23 07:28 BP 124/58 L 04/23/23 07:28 Pulse Ox 96 04/23/23 07:28 O2 Del Method Room Air 04/23/23 07:28 BMI result Body Mass Index 30.7 Const: General: alert and awake HEENT: Head: Yes normocephalic and Yes atraumatic Neck: Neck: Yes supple Resp: Auscultation: diminished lung sounds Cardio: Heart sounds: S1 normal heart sound present and S2 normal heart sound present GI: Palpation (GI): Soft to palpation and nontender Extrem: Right upper extremity: no edema Objective Data Labs 04/22/23 05:52 04/22/23 05:52 Labs: Laboratory Results - last 24 hr 04/22/23 04/22/23 04/22/23 05:52 12:01 16:29 Sodium 140 Potassium 3.8 Chloride 104 Carbon Dioxide 27 Anion Gap 13 BUN 24 H Creatinine 3.58 H Estim Creat Clear Calc 11.8 Estimated GFR 13 POC Glucose 126 H 132 H Random Glucose 193 H Calcium 7.8 L 04/22/23 20:17 Sodium Potassium Chloride Carbon Dioxide Anion Gap BUN Creatinine Estim Creat Clear Calc Estimated GFR POC Glucose 208 H Random Glucose Calcium Procedures Date of Service Date of Service: 04/23/23 Assessment & Plan Assessment and plan (1) End stage renal disease: Status: Acute (2) Anemia: Status: Inactive Plan s/p HD yesterday [facility] schedule renal diet phosphate binders GABE Time Spent With Patient Time: Total time managing care of this patient today ____ minutes. Progress Note: Quality Stroke Does the patient have a stroke diagnosis?: No
[2023-04-23 07:47] LABS: Glucose, Whole Blood 88 mg/dL (60-115)
[2023-04-23] MEDS: Insulin Glargine,Hum.rec.anlog 100 UNIT/ML 10 ML VIAL 15 UNIT SUBCUT (08:13)
[2023-04-23] MEDS: Clopidogrel Bisulfate 75 MG TABLET PO (08:14)
[2023-04-23] MEDS: carvediloL 6.25 MG TABLET PO ×2 (08:14→16:54)
[2023-04-23] MEDS: Magnesium Oxide 400 MG TABLET PO (08:14)
[2023-04-23] MEDS: 0.9 % Sodium Chloride Flush 3 ML SYRINGE IVFLUSH ×3 (08:14→22:59)
[2023-04-23] MEDS: Bethanechol Chloride 25 MG TABLET PO ×2 (08:14→20:45)
[2023-04-23] MEDS: amLODIPine Besylate 5 MG TABLET PO (08:14)
[2023-04-23] MEDS: Heparin Sodium,Porcine 5,000 UNIT/ML VIAL 5000 UNIT SUBCUT ×2 (10:20→22:02)
[2023-04-23 11:27] LABS: Glucose, Whole Blood 160 mg/dL (60-115)
--- NOTE | 2023-04-23 11:38 | P.PNIM_ITS ---
Subjective Subjective Date of Service: 04/23/23 Interval History: Complaining persistent nausea , no vomiting denies abdominal pain, no constipation denies fever chills, no urinary symptoms , no events overnight. Review of Systems Respiratory no shortness of breath, no cough CVS no chest pain Skin no rash Physical Exam Vital Signs: Vital Signs: Last Vital Signs Temp 97.8 F 04/23/23 07:28 Pulse 66 04/23/23 07:28 Resp 18 04/23/23 07:28 BP 124/58 L 04/23/23 07:28 Pulse Ox 96 04/23/23 07:28 O2 Del Method Room Air 04/23/23 07:28 BMI result Body Mass Index 30.7 Const: Other: General ? Awake alert, resting comfortably in no acute distress.? Neck? supple no JVD. CVS? regular rate rhythm, Respiratory lungs clear to auscultation, no respiratory distress, no wheeze, no rhonchi. Gastrointestinal abdomen soft, nontender, bowel sounds audible, no guarding , no rigidity. 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 Skin no rash psych appropriate affect Objective Data Active Medications Acetaminophen (Acetaminophen 325 Mg Tablet) 650 mg PO Q6H PRN PRN Reason: Pain, Mild (Pain Scale 1-3) Albuterol Sulfate (Albuterol Sulfate 90 Mcg 8 Gm Inhaler) 1 puff INHALE QID PRN PRN Reason: shortness of breath or wheezing Albuterol/Ipratropium (Albuterol/Iprat 2.5/0.5mg 3 Ml Ampul.Neb) 3 ml INHALE Q4H PRN PRN Reason: Wheezing Amlodipine Besylate (Amlodipine Besylate 5 Mg Tablet) 5 mg PO DAILY [facility]; Protocol Last Admin: 04/23/23 08:14 Dose: 5 mg Documented By: MINERVA Aspirin (Aspirin Enteric Coated 81 Mg Tablet.) 81 mg PO BEDTIME [facility] Last Admin: 04/22/23 20:24 Dose: 81 mg Documented By: KJ Atorvastatin Calcium (Atorvastatin Calcium 80 Mg Tablet) 80 mg PO BEDTIME [facility] Last Admin: 04/22/23 20:24 Dose: 80 mg Documented By: KJ Bethanechol Chloride (Bethanechol Chloride 25 Mg Tablet) 25 mg PO BID [facility] Last Admin: 04/23/23 08:14 Dose: 25 mg Documented By: MINERVA Carvedilol (Carvedilol 6.25 Mg Tablet) 6.25 mg PO BIDWM [facility]; Protocol Last Admin: 04/23/23 08:14 Dose: 6.25 mg Documented By: MINERVA Clopidogrel Bisulfate (Clopidogrel Bisulfate 75 Mg Tablet) 75 mg PO DAILY [facility] Last Admin: 04/23/23 08:14 Dose: 75 mg Documented By: MINERVA Dextrose (Dextrose 50 % 25 Gm/50 Ml Syringe) 25 gm IVPUSH Q15M PRN; Protocol PRN Reason: per Hypoglycemia Standing Ord. Glucose (Glucose Gel 15 Gm Gel..Gram.) 15 gm PO Q15M PRN; Protocol PRN Reason: per Hypoglycemia Standing Ord. Heparin Sodium (Porcine) (Heparin Sodium,Porcine 5,000 Unit/Ml Vial) 5,000 unit SUBCUT Q12H [facility] Last Admin: 04/23/23 10:20 Dose: 5,000 unit Documented By: MINERVA Ceftriaxone Sodium 1 gm/ (Sodium Chloride) 50 mls @ 100 mls/hr IV Q24H [facility] Last Infusion: 04/22/23 23:05 Dose: 0 mls/hr Documented By: KJ Insulin Glargine (Insulin Glargine,Hum.Rec.Anlog 100 Unit/Ml 10 Ml Vial) 15 unit SUBCUT DAILY [facility] Last Admin: 04/23/23 08:13 Dose: 15 unit Documented By: MINERVA Insulin Human Lispro (Insulin Lispro 100 Unit/Ml 3 Ml Vial) 0 unit SUBCUT QIDACHS [facility]; Protocol Last Admin: 04/23/23 07:48 Dose: Not Given Documented By: MINERVA Non-Admin Reason: No Insulin Coverage Magnesium Oxide (Magnesium Oxide 400 Mg Tablet) 400 mg PO DAILY [facility] Last Admin: 04/23/23 08:14 Dose: 400 mg Documented By: MINERVA Melatonin (Melatonin 3 Mg Tablet) 6 mg PO BEDTIME PRN PRN Reason: Insomnia Ondansetron HCl (Ondansetron Hcl 4 Mg/2 Ml Vial) 4 mg IVPUSH Q8H PRN PRN Reason: Nausea and Vomiting Last Admin: 04/22/23 16:25 Dose: 4 mg Documented By: MINERVA Pharmacy Consult (Consult Rx Perform Med Rec) 1 each MISCELLANE ONCE PRN PRN Reason: Consult order Sodium Chloride (0.9 % Sodium Chloride Flush 3 Ml Syringe) 3 ml IVFLUSH QSHIFT [facility] Last Admin: 04/23/23 08:14 Dose: 3 ml Documented By: MINERVA Tamsulosin HCl (Tamsulosin Hcl 0.4 Mg Capsule) 0.8 mg PO BEDTIME [facility] Last Admin: 04/22/23 20:23 Dose: 0.8 mg Documented By: KJ Tramadol HCl (Tramadol Hcl 50 Mg Tablet) 50 mg PO Q6H PRN PRN Reason: Pain, Mild (Pain Scale 1-3) Last Admin: 04/22/23 20:27 Dose: 50 mg Documented By: KJ Trazodone HCl (Trazodone Hcl 50 Mg Tablet) 50 mg PO BEDTIME [facility] Last Admin: 04/22/23 20:28 Dose: 50 mg Documented By: KJ Labs 04/22/23 05:52 04/22/23 05:52 Labs: Laboratory Results - last 24 hr 04/22/23 04/22/23 04/22/23 12:01 16:29 20:17 POC Glucose 126 H 132 H 208 H 04/23/23 04/23/23 07:23 11:23 POC Glucose 88 160 H Assessment and Plan (1) End stage renal disease: Status: Acute (2) UTI (urinary tract infection): Status: Inactive Plan 68-year-old female with pertinent history of ESRD on HD, congestive heart fa ilure with reduced ejection fraction, insulin-dependent type 2 diabetes mellitus, essential hypertension, mixed hyperlipidemia, chronic opioid use, mood disorder, urinary retention, gastroesophageal reflux disease who presents to the emergency department for evaluation of abdominal pain and vomiting. #.? End-stage renal disease on hemodialysis, received hemodialysis 04/22 being followed by Nephrology. Receive hemodialysis Wednesdays and Fridays #.? Abdominal pain, associated with nausea and vomiting likley due to gastroparesis, polypharmacy, exacerbated by acute UTI Persistent nausea and dry heaving, recommend small frequent meals, antiemetics, continue PPI # Acute UTI: Continue IV Rocephin d2/7 , urine culture positive for E coli sensitive to IV ceftriaxone. #.? Congestive heart failure with reduced ejection fraction #.? Essential hypertension -no acute CHF exacerbation, cont. home dose of diuretics and antihypertensive. #.? History of CVA: on plavix, aspirin and high-intensity statin #.? Insulin-dependent type 2 diabetes mellitus with hyperglycemia:? Blood sugar 185, change diet to diabetic Continue basal insulin and insulin sliding scale insulin before meals and at bedtime #.? Urinary retention: On bethanechol and tamsulosin #.? Anemia of chronic kidney disease stable hematocrit #.? Mood disorder.? On trazodone DVT prophylaxis:? Heparin Full code Patient will need continued hospitalization for hemodialysis and IV antibiotic treatment. Time Spent With Patient Time: Total time managing care of this patient today ____ minutes. Quality Stroke Does the patient have a stroke diagnosis?: No VTE Prior VTE?: No VTE Risk Level:: Medical - moderate - high VTE Device Contraindication: Treatment Not Indicated VTE Drug Contraindication: N/A - Med Ordered
[2023-04-23] MEDS: Insulin Lispro 100 UNIT/ML 3 ML VIAL SUBCUT ×3 (11:56→20:46)
[2023-04-23] MEDS: Omeprazole 20 MG CAPSULE.DR PO (11:56)
[2023-04-23] MEDS: ondansetron HCL 4 MG/2 ML VIAL IVPUSH (12:04)
--- NOTE | 2023-04-23 12:12 | MHC.CM.PN ---
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 BLS VS SHUTTLE DEPENDING ON HER ABILITIES AT TIME OF DC
[2023-04-23 16:31] LABS: Glucose, Whole Blood 175 mg/dL (60-115)
[2023-04-23 20:33] LABS: Glucose, Whole Blood 199 mg/dL (60-115)
[2023-04-23] MEDS: Aspirin Enteric Coated 81 MG TABLET.DR PO (20:45)
[2023-04-23] MEDS: Tamsulosin HCL 0.4 MG CAPSULE 0.8 MG PO (20:45)
[2023-04-23] MEDS: Atorvastatin Calcium 80 MG TABLET PO (20:46)
[2023-04-23] MEDS: traZODone HCL 50 MG TABLET PO (20:46)
[2023-04-23] MEDS: cefTRIAXone sodium 1 GM in 0.9 % Sodium Chloride 50 ML IV (21:57)
[2023-04-24 03:17] VITALS: BP 112/47; PULSE 58; RESP 16; TEMP 36.6; O2SAT 98
[2023-04-24 03:37] LABS: Glucose, Whole Blood 61 mg/dL (60-115)
[2023-04-24 04:01] LABS: Glucose, Whole Blood 96 mg/dL (60-115)
--- NOTE | 2023-04-24 04:15 | PC.NURSE ---
At 0333 patient was diaphoretic, blood glucose 61.Given juice , rechecked at [address] Stafford made aware.
[2023-04-24] MEDS: Omeprazole 20 MG CAPSULE.DR PO (06:43)
[2023-04-24 07:31] VITALS: BP 100/46; PULSE 68; RESP 18; TEMP 36.6; O2SAT 96
[2023-04-24 07:41] LABS: Glucose, Whole Blood 192 mg/dL (60-115)
[2023-04-24] MEDS: Bethanechol Chloride 25 MG TABLET PO ×2 (07:51→20:58)
[2023-04-24] MEDS: Clopidogrel Bisulfate 75 MG TABLET PO (07:51)
[2023-04-24] MEDS: Insulin Lispro 100 UNIT/ML 3 ML VIAL SUBCUT ×3 (07:51→20:59)
[2023-04-24] MEDS: Magnesium Oxide 400 MG TABLET PO (07:51)
[2023-04-24] MEDS: carvediloL 6.25 MG TABLET PO ×2 (07:51→18:39)
[2023-04-24] MEDS: amLODIPine Besylate 5 MG TABLET PO (07:51)
[2023-04-24] MEDS: 0.9 % Sodium Chloride Flush 3 ML SYRINGE IVFLUSH (07:52)
--- NOTE | 2023-04-24 10:08 | P.PNNP_ITS ---
Subjective Subjective Date of Service: 04/24/23 Interval history: Complaining about nausea , no vomiting denies abdominal pain Physical Exam Vital Signs: Vital Signs: Last Vital Signs Temp 97.8 F 04/24/23 07:31 Pulse 68 04/24/23 07:31 Resp 18 04/24/23 07:31 BP 100/46 L 04/24/23 07:31 Pulse Ox 96 04/24/23 07:31 O2 Del Method Room Air 04/24/23 07:31 BMI result Body Mass Index 30.7 Const: Other: General ? Awake alert, resting comfortably in no acute distress.? Neck? supple no JVD. CVS? regular rate rhythm, Respiratory lungs clear to auscultation, no respiratory distress, no wheeze, no rhonchi. Gastrointestinal abdomen soft, nontender, bowel sounds audible, no guarding , no rigidity. 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 Skin no rash psych appropriate affect Objective Data Labs 04/22/23 05:52 04/22/23 05:52 Labs: Laboratory Results - last 24 hr 04/23/23 04/23/23 04/23/23 11:23 16:18 20:29 POC Glucose 160 H 175 H 199 H 04/24/23 04/24/23 04/24/23 03:33 03:56 07:37 POC Glucose 61 96 192 H Procedures Date of Service Date of Service: 04/24/23 Assessment & Plan Assessment and plan (1) End stage renal disease: Status: Acute (2) Dialysis patient, noncompliant: Status: Acute Plan s/p HD yesterday usually has HD at [facility] REC' HD per schedule Fluid removal as tolerated w/u nausea renal diet phosphate binders GABE Time Spent With Patient Time: Total time managing care of this patient today ____ minutes. Progress Note: Quality Stroke Does the patient have a stroke diagnosis?: No
[2023-04-24] MEDS: Heparin Sodium,Porcine 5,000 UNIT/ML VIAL 5000 UNIT SUBCUT ×2 (10:11→20:59)
[2023-04-24] MEDS: Insulin Glargine,Hum.rec.anlog 100 UNIT/ML 10 ML VIAL 15 UNIT SUBCUT (10:11)
--- NOTE | 2023-04-24 10:19 | MHC.CLN ---
NUTRITION PATIENT WITH ESRD ON HEMODIALYSIS. DIET=DIABETIC 2000 KCALS, 2 GRAM SODIUM, LOW POTASSIUM, LOW PHOSPHORUS.
[2023-04-24 11:14] LABS: Glucose, Whole Blood 164 mg/dL (60-115)
[2023-04-24 12:00] VITALS: BP 116/58; PULSE 68; RESP 18; TEMP 36.2; O2SAT 100
--- NOTE | 2023-04-24 13:05 | HO.PM.IMPN ---
Subjective Subjective Date of Service: 04/24/23 Interval History: for remains nauseous but improved. No acute issues Review of Systems denies chest pain Denies shortness of breath Denies nausea vomiting diarrhea Denies fever chills Physical Exam Vital Signs: Vital Signs: Last Vital Signs Temp 97.1 F 04/24/23 12:00 Pulse 68 04/24/23 12:00 Resp 18 04/24/23 12:00 BP 116/58 L 04/24/23 12:00 Pulse Ox 100 04/24/23 12:00 O2 Del Method Room Air 04/24/23 12:00 BMI result Body Mass Index 30.7 Const: Other: awake alert no acute distress Resp: Other: clear to auscultation bilaterally no rales rhonchi wheezes Cardio: Other: no S4; positive S1-S2; no S3 murmurs rubs or gallops GI: Other: soft nontender nondistended normoactive bowel sounds Extrem: Other: no edema bilaterally Objective Data Active Medications Acetaminophen (Acetaminophen 325 Mg Tablet) 650 mg PO Q6H PRN PRN Reason: Pain, Mild (Pain Scale 1-3) Albuterol Sulfate (Albuterol Sulfate 90 Mcg 8 Gm Inhaler) 1 puff INHALE QID PRN PRN Reason: shortness of breath or wheezing Albuterol/Ipratropium (Albuterol/Iprat 2.5/0.5mg 3 Ml Ampul.Neb) 3 ml INHALE Q4H PRN PRN Reason: Wheezing Amlodipine Besylate (Amlodipine Besylate 5 Mg Tablet) 5 mg PO DAILY [facility]; Protocol Last Admin: 04/24/23 07:51 Dose: 5 mg Documented By: ANGELIA Aspirin (Aspirin Enteric Coated 81 Mg Tablet.Dr) 81 mg PO BEDTIME [facility] Last Admin: 04/23/23 20:45 Dose: 81 mg Documented By: RAZA Atorvastatin Calcium (Atorvastatin Calcium 80 Mg Tablet) 80 mg PO BEDTIME [facility] Last Admin: 04/23/23 20:46 Dose: 80 mg Documented By: RAZA Bethanechol Chloride (Bethanechol Chloride 25 Mg Tablet) 25 mg PO BID [facility] Last Admin: 04/24/23 07:51 Dose: 25 mg Documented By: ANGELIA Carvedilol (Carvedilol 6.25 Mg Tablet) 6.25 mg PO BIDWM [facility]; Protocol Last Admin: 04/24/23 07:51 Dose: 6.25 mg Documented By: ANGELIA Clopidogrel Bisulfate (Clopidogrel Bisulfate 75 Mg Tablet) 75 mg PO DAILY [facility] Last Admin: 04/24/23 07:51 Dose: 75 mg Documented By: ANGELIA Dextrose (Dextrose 50 % 25 Gm/50 Ml Syringe) 25 gm IVPUSH Q15M PRN; Protocol PRN Reason: per Hypoglycemia Standing Ord. Glucose (Glucose Gel 15 Gm Gel..Gram.) 15 gm PO Q15M PRN; Protocol PRN Reason: per Hypoglycemia Standing Ord. Heparin Sodium (Porcine) (Heparin Sodium,Porcine 5,000 Unit/Ml Vial) 5,000 unit SUBCUT Q12H [facility] Last Admin: 04/24/23 10:11 Dose: 5,000 unit Documented By: ANGELIA Ceftriaxone Sodium 1 gm/ (Sodium Chloride) 50 mls @ 100 mls/hr IV Q24H [facility] Last Infusion: 04/23/23 22:58 Dose: 0 mls/hr Documented By: RICARDO Insulin Glargine (Insulin Glargine,Hum.Rec.Anlog 100 Unit/Ml 10 Ml Vial) 15 unit SUBCUT DAILY [facility] Last Admin: 04/24/23 10:11 Dose: 15 unit Documented By: ANGELIA Insulin Human Lispro (Insulin Lispro 100 Unit/Ml 3 Ml Vial) 0 unit SUBCUT QIDACHS [facility]; Protocol Last Admin: 04/24/23 11:44 Dose: 2 unit Documented By: ANGELIA Magnesium Oxide (Magnesium Oxide 400 Mg Tablet) 400 mg PO DAILY [facility] Last Admin: 04/24/23 07:51 Dose: 400 mg Documented By: ANGELIA Melatonin (Melatonin 3 Mg Tablet) 6 mg PO BEDTIME PRN PRN Reason: Insomnia Omeprazole (Omeprazole 20 Mg Capsule.) 20 mg PO DAILY@0630 [facility] Last Admin: 04/24/23 06:43 Dose: 20 mg Documented By: RICARDO Ondansetron HCl (Ondansetron Hcl 4 Mg/2 Ml Vial) 4 mg IVPUSH Q8H PRN PRN Reason: Nausea and Vomiting Last Admin: 04/23/23 12:04 Dose: 4 mg Documented By: MINERVA Pharmacy Consult (Consult Rx Perform Med Rec) 1 each MISCELLANE ONCE PRN PRN Reason: Consult order Sodium Chloride (0.9 % Sodium Chloride Flush 3 Ml Syringe) 3 ml IVFLUSH QSHIFT [facility] Last Admin: 04/24/23 07:52 Dose: 3 ml Documented By: ANGELIA Tamsulosin HCl (Tamsulosin Hcl 0.4 Mg Capsule) 0.8 mg PO BEDTIME [facility] Last Admin: 04/23/23 20:45 Dose: 0.8 mg Documented By: RAZA Tramadol HCl (Tramadol Hcl 50 Mg Tablet) 50 mg PO Q6H PRN PRN Reason: Pain, Mild (Pain Scale 1-3) Last Admin: 04/22/23 20:27 Dose: 50 mg Documented By: ODRISClayton Trazodone HCl (Trazodone Hcl 50 Mg Tablet) 50 mg PO BEDTIME [facility] Last Admin: 04/23/23 20:46 Dose: 50 mg Documented By: RAZA Labs 04/22/23 05:52 04/22/23 05:52 Labs: Laboratory Results - last 24 hr 04/23/23 04/23/23 04/24/23 16:18 20:29 03:33 POC Glucose 175 H 199 H 61 04/24/23 04/24/23 04/24/23 03:56 07:37 11:11 POC Glucose 96 192 H 164 H Assessment and Plan (1) End stage renal disease: Status: Acute (2) Vomiting: Status: Acute (3) UTI (urinary tract infection): Status: Acute Plan 68-year-old female with pertinent history of ESRD on HD, congestive heart failure with reduced ejection fraction, insulin-dependent type 2 diabetes mellitus, essential hypertension, mixed hyperlipidemia, chronic opioid use, mood disorder, urinary retention, gastroesophageal reflux disease who presents to the emergency department for evaluation of abdominal pain and vomiting. 1. Acute UTI - ceftriaxone (3) - switch to oral Ceftin when appropriate 2.Nausea and vomiting( likley due to gastroparesis) - likely related to acute UTI in backdrop of diabetic gastroparesis 3.Essential hypertension - acceptable control on current therapies - adjust as indicated 4.History of CVA - Plavix/aspirin/ statin 5.DMII - acceptable control on current therapies - continue lispro correctional scale along with basal insulin as per outpatient dosing - adjust as indicated Heparin Full code Patient will need continued hospitalization for hemodialysis and IV antibiotic treatment for E coli UTI; high risk for outpatient therapy given persistent nausea and inability to tolerate oral therapy Time Spent With Patient Time: Total time managing care of this patient today ____ minutes. Quality Stroke Does the patient have a stroke diagnosis?: No VTE Prior VTE?: No VTE Risk Level:: Medical - moderate - high VTE Device Contraindication: Treatment Not Indicated VTE Drug Contraindication: N/A - Med Ordered
[2023-04-24 18:07] LABS: Glucose, Whole Blood 100 mg/dL (60-115)
[2023-04-24 19:38] VITALS: BP 131/57; PULSE 80; RESP 15; TEMP 36.5; O2SAT 97
[2023-04-24 20:18] LABS: Glucose, Whole Blood 239 mg/dL (60-115)
[2023-04-24] MEDS: Atorvastatin Calcium 80 MG TABLET PO (20:58)
[2023-04-24] MEDS: Aspirin Enteric Coated 81 MG TABLET.DR PO (20:58)
[2023-04-24] MEDS: traZODone HCL 50 MG TABLET PO (20:58)
[2023-04-24] MEDS: Tamsulosin HCL 0.4 MG CAPSULE 0.8 MG PO (20:59)
[2023-04-24] MEDS: cefTRIAXone sodium 1 GM in 0.9 % Sodium Chloride 50 ML IV (21:02)
[2023-04-24 23:39] VITALS: BP 122/57; PULSE 77; RESP 18; TEMP 36.5; O2SAT 98
[2023-04-25 03:57] VITALS: BP 109/59; PULSE 67; RESP 17; TEMP 36.2; O2SAT 95
[2023-04-25] MEDS: Omeprazole 20 MG CAPSULE.DR PO (06:04)
[2023-04-25 07:24] VITALS: BP 120/55; PULSE 67; RESP 17; TEMP 36.6; O2SAT 96
[2023-04-25 07:51] LABS: Glucose, Whole Blood 109 mg/dL (60-115)
[2023-04-25] MEDS: amLODIPine Besylate 5 MG TABLET PO (07:55)
[2023-04-25] MEDS: carvediloL 6.25 MG TABLET PO ×2 (07:55→17:01)
[2023-04-25] MEDS: Clopidogrel Bisulfate 75 MG TABLET PO (07:55)
[2023-04-25] MEDS: Magnesium Oxide 400 MG TABLET PO (07:55)
[2023-04-25] MEDS: Bethanechol Chloride 25 MG TABLET PO ×2 (07:55→20:13)
[2023-04-25] MEDS: 0.9 % Sodium Chloride Flush 3 ML SYRINGE IVFLUSH ×4 (07:56→23:59)
--- NOTE | 2023-04-25 09:20 | PM.PNNEP ---
Subjective Subjective Date of Service: 04/25/23 Interval history: for remains nauseous but improved. No CP Physical Exam Vital Signs: Vital Signs: Last Vital Signs Temp 97.8 F 04/25/23 07:24 Pulse 67 04/25/23 07:24 Resp 17 04/25/23 07:24 BP 120/55 L 04/25/23 07:24 Pulse Ox 96 04/25/23 07:24 O2 Del Method Room Air 04/25/23 07:24 BMI result Body Mass Index 30.7 Const: Other: awake alert no acute distress Resp: Other: clear to auscultation bilaterally no rales rhonchi wheezes Cardio: Other: no S4; positive S1-S2; no S3 murmurs rubs or gallops GI: Other: soft nontender nondistended normoactive bowel sounds Extrem: Other: no edema bilaterally Objective Data Labs 04/22/23 05:52 04/22/23 05:52 Labs: Laboratory Results - last 24 hr 04/24/23 04/24/23 04/24/23 11:11 18:04 20:14 POC Glucose 164 H 100 239 H 04/25/23 07:46 POC Glucose 109 Procedures Date of Service Date of Service: 04/25/23 Assessment & Plan Assessment and plan (1) End stage renal disease: Status: Acute (2) Dialysis patient, noncompliant: Status: Acute Plan s/p HD yesterday usually has HD at [facility] REC' HD per schedule Fluid removal as tolerated w/u nausea - Not due to uremia as BUN is only 24. AVOID MAG use in HD pts renal diet phosphate binders GABE Time Spent With Patient Time: Total time managing care of this patient today ____ minutes. Progress Note: Quality Stroke Does the patient have a stroke diagnosis?: No
[2023-04-25] MEDS: Heparin Sodium,Porcine 5,000 UNIT/ML VIAL 5000 UNIT SUBCUT ×2 (10:56→21:31)
[2023-04-25 11:21] VITALS: BP 130/58; PULSE 72; RESP 16; TEMP 36.8; O2SAT 99
[2023-04-25 11:21] LABS: Glucose, Whole Blood 187 mg/dL (60-115)
[2023-04-25] MEDS: Insulin Lispro 100 UNIT/ML 3 ML VIAL SUBCUT ×3 (12:36→21:31)
--- NOTE | 2023-04-25 14:23 | P.PNIM_ITS ---
Subjective Subjective Date of Service: 04/25/23 Interval History: nausea somewhat improved. No other acute complaints Review of Systems denies chest pain Denies shortness of breath Admits nausea denies vomiting diarrhea Denies fever chills Physical Exam Vital Signs: Vital Signs: Last Vital Signs Temp 98.3 F 04/25/23 11:21 Pulse 72 04/25/23 11:21 Resp 16 04/25/23 11:21 BP 130/58 L 04/25/23 11:21 Pulse Ox 99 04/25/23 11:21 O2 Del Method Room Air 04/25/23 11:21 BMI result Body Mass Index 30.7 Const: Other: awake alert no acute distress Resp: Other: clear to auscultation bilaterally no rales rhonchi wheezes Cardio: Other: no S4; positive S1-S2; no S3 murmurs rubs or gallops GI: Other: soft nontender nondistended normoactive bowel sounds Extrem: Other: no edema bilaterally Objective Data Active Medications Acetaminophen (Acetaminophen 325 Mg Tablet) 650 mg PO Q6H PRN PRN Reason: Pain, Mild (Pain Scale 1-3) Albuterol Sulfate (Albuterol Sulfate 90 Mcg 8 Gm Inhaler) 1 puff INHALE QID PRN PRN Reason: shortness of breath or wheezing Albuterol/Ipratropium (Albuterol/Iprat 2.5/0.5mg 3 Ml Ampul.Neb) 3 ml INHALE Q4H PRN PRN Reason: Wheezing Amlodipine Besylate (Amlodipine Besylate 5 Mg Tablet) 5 mg PO DAILY [facility]; Protocol Last Admin: 04/25/23 07:55 Dose: 5 mg Documented By: ANGELIA Aspirin (Aspirin Enteric Coated 81 Mg Tablet.Dr) 81 mg PO BEDTIME [facility] Last Admin: 04/24/23 20:58 Dose: 81 mg Documented By: GUSTAVO Atorvastatin Calcium (Atorvastatin Calcium 80 Mg Tablet) 80 mg PO BEDTIME [facility] Last Admin: 04/24/23 20:58 Dose: 80 mg Documented By: GUSTAVO Bethanechol Chloride (Bethanechol Chloride 25 Mg Tablet) 25 mg PO BID [facility] Last Admin: 04/25/23 07:55 Dose: 25 mg Documented By: ANGELIA Carvedilol (Carvedilol 6.25 Mg Tablet) 6.25 mg PO BIDWM [facility]; Protocol Last Admin: 04/25/23 07:55 Dose: 6.25 mg Documented By: ANGELIA Clopidogrel Bisulfate (Clopidogrel Bisulfate 75 Mg Tablet) 75 mg PO DAILY [facility] Last Admin: 04/25/23 07:55 Dose: 75 mg Documented By: ANGELIA Dextrose (Dextrose 50 % 25 Gm/50 Ml Syringe) 25 gm IVPUSH Q15M PRN; Protocol PRN Reason: per Hypoglycemia Standing Ord. Glucose (Glucose Gel 15 Gm Gel..Gram.) 15 gm PO Q15M PRN; Protocol PRN Reason: per Hypoglycemia Standing Ord. Heparin Sodium (Porcine) (Heparin Sodium,Porcine 5,000 Unit/Ml Vial) 5,000 unit SUBCUT Q12H [facility] Last Admin: 04/25/23 10:56 Dose: 5,000 unit Documented By: ANGELIA Ceftriaxone Sodium 1 gm/ (Sodium Chloride) 50 mls @ 100 mls/hr IV Q24H [facility] Last Infusion: 04/24/23 22:48 Dose: 0 mls/hr Documented By: GUSTAVO Insulin Glargine (Insulin Glargine,Hum.Rec.Anlog 100 Unit/Ml 10 Ml Vial) 15 unit SUBCUT DAILY [facility] Last Admin: 04/25/23 10:00 Dose: Not Given Documented By: ANGELIA Non-Admin Reason: No Insulin Coverage Insulin Human Lispro (Insulin Lispro 100 Unit/Ml 3 Ml Vial) 0 unit SUBCUT QIDACHS [facility]; Protocol Last Admin: 04/25/23 12:36 Dose: 2 unit Documented By: ANGELIA Magnesium Oxide (Magnesium Oxide 400 Mg Tablet) 400 mg PO DAILY [facility] Last Admin: 04/25/23 07:55 Dose: 400 mg Documented By: ANGELIA Melatonin (Melatonin 3 Mg Tablet) 6 mg PO BEDTIME PRN PRN Reason: Insomnia Omeprazole (Omeprazole 20 Mg Lore.) 20 mg PO DAILY@0630 [facility] Last Admin: 04/25/23 06:04 Dose: 20 mg Documented By: YVES Ondansetron HCl (Ondansetron Hcl 4 Mg/2 Ml Vial) 4 mg IVPUSH Q8H PRN PRN Reason: Nausea and Vomiting Last Admin: 04/23/23 12:04 Dose: 4 mg Documented By: MINERVA Pharmacy Consult (Consult Rx Perform Med Rec) 1 each MISCELLANE ONCE PRN PRN Reason: Consult order Sodium Chloride (0.9 % Sodium Chloride Flush 3 Ml Syringe) 3 ml IVFLUSH QSHIFT [facility] Last Admin: 04/25/23 07:56 Dose: 3 ml Documented By: ANGELIA Tamsulosin HCl (Tamsulosin Hcl 0.4 Mg Capsule) 0.8 mg PO BEDTIME [facility] Last Admin: 04/24/23 20:59 Dose: 0.8 mg Documented By: GUSTAVO Tramadol HCl (Tramadol Hcl 50 Mg Tablet) 50 mg PO Q6H PRN PRN Reason: Pain, Mild (Pain Scale 1-3) Last Admin: 04/22/23 20:27 Dose: 50 mg Documented By: ODRISClayton Trazodone HCl (Trazodone Hcl 50 Mg Tablet) 50 mg PO BEDTIME [facility] Last Admin: 04/24/23 20:58 Dose: 50 mg Documented By: GUSTAVO Labs 04/22/23 05:52 04/22/23 05:52 Labs: Laboratory Results - last 24 hr 04/24/23 04/24/23 04/25/23 18:04 20:14 07:46 POC Glucose 100 239 H 109 04/25/23 11:15 POC Glucose 187 H Assessment and Plan (1) UTI (urinary tract infection): Status: Acute (2) Chronic kidney disease: Status: Acute Plan 68-year-old female with pertinent history of ESRD on HD, congestive heart failure with reduced ejection fraction, insulin-dependent type 2 diabetes mellitus, essential hypertension, mixed hyperlipidemia, chronic opioid use, mood disorder, urinary retention, gastroesophageal reflux disease who presents to the emergency department for evaluation of abdominal pain and vomiting. 1. Acute UTI - ceftriaxone (4) - switch to oral Ceftin when appropriate 2.Nausea and vomiting( likley due to gastroparesis) - likely related to acute UTI in backdrop of diabetic gastroparesis - slowly improving 3.Essential hypertension - acceptable control on current therapies - adjust as indicated 4.History of CVA - Plavix/aspirin/ statin 5.DMII - acceptable control on current therapies - continue lispro correctional scale along with basal insulin as per outpatient dosing - adjust as indicated Heparin Full code Patient will need continued hospitalization for hemodialysis and IV antibiotic treatment for E coli UTI; high risk for outpatient therapy given persistent nausea and inability to tolerate oral therapy Time Spent With Patient Time: Total time managing care of this patient today ____ minutes. Quality Stroke Does the patient have a stroke diagnosis?: No VTE Prior VTE?: No VTE Risk Level:: Medical - moderate - high VTE Device Contraindication: Treatment Not Indicated VTE Drug Contraindication: N/A - Med Ordered
[2023-04-25 16:00] VITALS: BP 135/74; PULSE 75; RESP 17; TEMP 36.6; O2SAT 96
[2023-04-25 16:30] LABS: Glucose, Whole Blood 342 mg/dL (60-115)
[2023-04-25 19:55] VITALS: BP 97/51; PULSE 73; RESP 17; TEMP 36.3; O2SAT 98
[2023-04-25] MEDS: traZODone HCL 50 MG TABLET PO (20:13)
[2023-04-25] MEDS: Atorvastatin Calcium 80 MG TABLET PO (20:13)
[2023-04-25] MEDS: Tamsulosin HCL 0.4 MG CAPSULE 0.8 MG PO (20:13)
[2023-04-25] MEDS: Aspirin Enteric Coated 81 MG TABLET.DR PO (20:13)
[2023-04-25 20:16] LABS: Glucose, Whole Blood 162 mg/dL (60-115)
[2023-04-25] MEDS: cefTRIAXone sodium 1 GM in 0.9 % Sodium Chloride 50 ML IV (21:31)
[2023-04-25 23:47] VITALS: BP 110/65; PULSE 70; RESP 18; TEMP 36.6; O2SAT 99
[2023-04-26 02:52] VITALS: BP 124/55; PULSE 68; RESP 18; TEMP 36.4; O2SAT 98
[2023-04-26] MEDS: Omeprazole 20 MG CAPSULE.DR PO (05:54)
[2023-04-26 07:17] VITALS: BP 128/59; PULSE 71; RESP 18; TEMP 36.2; O2SAT 98
[2023-04-26 07:24] LABS: Glucose, Whole Blood 109 mg/dL (60-115)
[2023-04-26] MEDS: Heparin Sodium,Porcine 5,000 UNIT/ML VIAL 5000 UNIT SUBCUT (08:42)
[2023-04-26] MEDS: carvediloL 6.25 MG TABLET PO ×2 (08:43→17:03)
[2023-04-26] MEDS: amLODIPine Besylate 5 MG TABLET PO (08:43)
[2023-04-26] MEDS: Bethanechol Chloride 25 MG TABLET PO (08:43)
[2023-04-26] MEDS: Magnesium Oxide 400 MG TABLET PO (08:43)
[2023-04-26] MEDS: Clopidogrel Bisulfate 75 MG TABLET PO (08:43)
[2023-04-26] MEDS: 0.9 % Sodium Chloride Flush 3 ML SYRINGE IVFLUSH (08:44)
--- NOTE | 2023-04-26 09:02 | P.PNNP_ITS ---
Subjective Subjective Date of Service: 04/26/23 Interval history: seen and examined no complaints feels good this morning Physical Exam Vital Signs: Vital Signs: Last Vital Signs Temp 97.1 F 04/26/23 07:17 Pulse 71 04/26/23 07:17 Resp 18 04/26/23 07:17 BP 128/59 L 04/26/23 07:17 Pulse Ox 98 04/26/23 07:17 O2 Del Method Room Air 04/26/23 07:17 BMI result Body Mass Index 30.7 Const: General: alert and awake HEENT: Head: Yes normocephalic and Yes atraumatic Neck: Neck: Yes supple Resp: Auscultation: diminished lung sounds Cardio: Heart sounds: S1 normal heart sound present and S2 normal heart sound present GI: Palpation (GI): Soft to palpation and nontender Extrem: Right upper extremity: no edema Objective Data Labs 04/22/23 05:52 04/22/23 05:52 Labs: Laboratory Results - last 24 hr 04/25/23 04/25/23 04/25/23 11:15 16:10 20:12 POC Glucose 187 H 342 H 162 H 04/26/23 07:20 POC Glucose 109 Procedures Date of Service Date of Service: 04/26/23 Assessment & Plan Assessment and plan (1) End stage renal disease: Status: Acute (2) Anemia: Status: Inactive Plan [facility] per schedule renal diet phosphate binders GABE Time Spent With Patient Time: Total time managing care of this patient today ____ minutes. Progress Note: Quality Stroke Does the patient have a stroke diagnosis?: No
[2023-04-26 12:52] LABS: Adenovirus F 40/41 Not Detected (Not Detect.); Astrovirus Not Detected (Not Detect.); Campylobacter Not Detected (Not Detect.); Cryptosporidium Not Detected (Not Detect.); Cyclospora cayetanensis Not Detected (Not Detect.); E. coli EAEC Not Detected (Not Detect.); E. coli EPEC Not Detected (Not Detect.); E. coli ETEC Not Detected (Not Detect.); E. coli STEC Not Detected (Not Detect.); Entamoeba histolytica Not Detected (Not Detect.); Giardia lamblia Not Detected (Not Detect.); Norovirus GI/GII Not Detected (Not Detect.); Plesiomonas shigelloides Not Detected (Not Detect.); Rotavirus A Not Detected (Not Detect.); Salmonella Not Detected (Not Detect.); Sapovirus Not Detected (Not Detect.); Shigella sp./EIEC Not Detected (Not Detect.); Vibrio Not Detected (Not Detect.); Vibrio Cholerae Not Detected (Not Detect.); Yersinia enterocolitica Not Detected (Not Detect.)
[2023-04-26 14:48] LABS: Glucose, Whole Blood 142 mg/dL (60-115)
--- NOTE | 2023-04-26 14:56 | PM.DS ---
DS: Providers Provider Date of Service: 04/26/23 Date of admission: 04/21/23 21:58 Date of discharge: 04/26/23 Primary care physician: Alexys Avila MD Consults: 04/21/23 21:58 Consult to Nephrology Routine Consulting Provider: Leo Monroe Reason for consultation: ESRD DS: Diagnosis Discharge Diagnosis (1) UTI (urinary tract infection): Status: Acute (2) End stage renal disease: Status: Acute (3) Anemia: Status: Inactive DS: Summary Hospital Course Hospital Course: 68-year-old female with pertinent history of ESRD on HD, congestive heart failure with reduced ejection fraction, insulin-dependent type 2 diabetes mellitus, essential hypertension, mixed hyperlipidemia, chronic opioid use, mood disorder, urinary retention, gastroesophageal reflux disease who presents to the emergency department for evaluation of abdominal pain and vomiting.? Patient presented to the ER 1 day prior to presentation for similar complaints.? CT scan was done which did not reveal any acute abnormality.? UA revealed acute UTI and PA shunt was discharged on p.o. antibiotics.? She states that she continued to have vomiting with abdominal pain and increased urinary frequency.? Patient missed her dialysis session today due to ongoing symptoms.? She denies fever, chills, chest discomfort, palpitations, shortness of breath. Hospital course Patient admitted to general medical floor. Maintain on ceftriaxone 1 g daily. Seen in consultation by Renal. . . HD maintained on outpatient schedule. Over the next several days patient's abdominal pain and nausea improved and she tolerated diet. On the day of discharge he completed dialysis and will be discharged home. She will be discharged on cefdinir 300 mg; 1 tab after dialysis x2 doses. She will follow-up with PCP and resume her outpatient hemodialysis schedule Time Spent with Patient Time attestation: Total time managing care of this patient today ____ minutes. Discharge coordination time: Greater than 30 minutes Quality: Safe Use of Opioids Does Pt have an Active Cancer Diagnosis on the Problem List?: No Quality: Stroke Does the patient have a stroke diagnosis?: No Physical Exam Vital Signs: Vital Signs: Last Vital Signs Temp 97.1 F 04/26/23 07:17 Pulse 71 04/26/23 07:17 Resp 18 04/26/23 07:17 BP 128/59 L 04/26/23 07:17 Pulse Ox 98 04/26/23 07:17 O2 Del Method Room Air 04/26/23 07:17 BMI result Body Mass Index 30.7 Const: Other: awake alert no acute distress Resp: Other: clear to auscultation bilaterally no rales rhonchi wheezes Cardio: Other: no S4; positive S1-S2; no S3 murmurs rubs or gallops GI: Other: soft nontender nondistended normoactive bowel sounds Extrem: Other: no edema bilaterally DS: Data Data Completed and Pending Completed studies during hospitalization [Text1]: Procedures Detachment at Left Index Finger, Mid, Open Approach (09/15/22) Dilation of Esophagus, Via Natural or Artificial Opening Endoscopic (01/31/22) Dilation of Upper Esophagus, Via Natural or Artificial Opening Endoscopic (08/16/21) Fluoroscopy of Superior Vena Cava using Low Osmolar Contrast, Guidance (12/27/22) Insertion of Infusion Device into Superior Vena Cava, Percutaneous Approach (12/27/22) Introduction of Other Thrombolytic into Peripheral Vein, Percutaneous Approach (06/05/21) Performance of Urinary Filtration, Intermittent, Less than 6 Hours Per Day (03/31/23) Transfusion of Nonautologous Red Blood Cells into Peripheral Vein, Percutaneous Approach (12/27/22) Labs on day of discharge: Laboratory Results - last 24 hr 04/25/23 04/25/23 04/25/23 15:40 16:10 20:12 POC Glucose 342 H 162 H Stl C. cayetanensis PCR Not Detected Stool Rotavirus A PCR Not Detected Stl Adenov F 40/41 PCR Not Detected Stool Astrovirus (PCR) Not Detected Stool Campylobacter PCR Not Detected Stool Cryptosporidium PCR Not Detected Stl Sh Tox Pr E STEC PCR Not Detected Stool E coli O157 PCR Not applicable Stl Enterotoxigenic E PCR Not Detected Stool EPEC (PCR) Not Detected Stool EAEC (PCR) Not Detected Stl E. histolytica PCR Not Detected Stool Giardia Lamblia PCR Not Detected Stl P. shigelloides PCR Not Detected Stool Salmonella PCR Not Detected Stool Sapovirus (PCR) Not Detected Stl Shigella/EIEC PCR Not Detected St Y.enterocolitica PCR Not Detected Stool Vibrio (PCR) Not Detected Stl Vibrio cholerae PCR Not Detected Stl Norovirus GI/GII PCR Not Detected 04/26/23 04/26/23 07:20 14:44 POC Glucose 109 142 H Stl C. cayetanensis PCR Stool Rotavirus A PCR Stl Adenov F 40/41 PCR Stool Astrovirus (PCR) Stool Campylobacter PCR Stool Cryptosporidium PCR Stl Sh Tox Pr E STEC PCR Stool E coli O157 PCR Stl Enterotoxigenic E PCR Stool EPEC (PCR) Stool EAEC (PCR) Stl E. histolytica PCR Stool Giardia Lamblia PCR Stl P. shigelloides PCR Stool Salmonella PCR Stool Sapovirus (PCR) Stl Shigella/EIEC PCR St Y.enterocolitica PCR Stool Vibrio (PCR) Stl Vibrio cholerae PCR Stl Norovirus GI/GII PCR Discharge Plan Discharge Anticipated Discharge Date/Time: 04/26/23 14:44 Patient Disposition: Home, Self-Care Discharge Diagnosis: acute urinary tract infection Referrals: Alexys Avila MD [Primary Care Provider] - 1 Week Discharge Medications: New cefdinir 300 mg capsule 300 mg PO . q.o.d. Qty: 2 0RF Rx Instructions: after dialysis Continued atorvastatin 80 mg tablet 80 mg PO BEDTIME trazodone 50 mg tablet 50 mg PO BEDTIME clopidogrel 75 mg tablet 75 mg PO DAILY aspirin 81 mg tablet,delayed release (DR/EC) 81 mg PO BEDTIME insulin glargine [Lantus Solostar U-100 Insulin] 100 unit/mL (3 mL) insulin pen 20 unit subcut DAILY ipratropium-albuterol 0.5 mg-3 mg(2.5 mg base)/3 mL Solution For Nebulization 3 ml INHALATION Q4H PRN (Reason: Wheezing) insulin lispro [Humalog U-100 Insulin] 100 unit/mL solution See Protocol subcut QIDACHS Protocol: Insulin Correction Scale Less than or equal to 110 ---- Give (units): 0 111 to 150 Give (units): 0 151 to 200 Give (units): 2 201 to 250 Give (units): 4 251 to 300 Give (units): 6 301 to 350 Give (units): 8 Greater than 350 Give (units): 10 Call MD if Blood Glucose > : 350 Rx Instructions: sliding scale furosemide [Lasix] 40 mg tablet 40 mg PO DAILY Rx Instructions: Please call and schedule cardiology appt. acetaminophen 500 mg Tablet 1,000 mg PO Q6H PRN (Reason: Fever Or Pain) Rx Instructions: do not exceed 3 grams / 24 hours bethanechol chloride 25 mg Tablet 25 mg PO BID Qty: 60 0RF albuterol sulfate 90 mcg/actuation HFA aerosol inhaler 1 inh inhalation QID PRN (Reason: shortness of breath or wheezing) Qty: 8.5 0RF amlodipine 5 mg tablet 5 mg PO DAILY magnesium oxide 400 mg (241.3 mg magnesium) tablet 400 mg PO DAILY carvedilol 6.25 mg tablet 6.25 mg PO BIDWM Rx Instructions: must administer with a meal/food - Take one tablet twice daily melatonin 3 mg Tablet 3 mg PO BEDTIME pantoprazole 40 mg tablet,delayed release (DR/EC) 40 mg PO DAILY tamsulosin 0.4 mg capsule 0.8 mg PO BEDTIME Discharge Orders: Discharge Order (Routine); Ordered 04/26/23 Ordered By: Parag Jarquin Diet: Advance to usual diet Activity on Discharge: As tolerated Stand Alone Forms: Patient Portal Discharge page Care Plan Goals: resume all your medicines taking before you came to the hospital Health Concerns: you are going to received Cefdinir 300 mg. You will take 1 pill after dialysis x2 pills Plan of Treatment: resume your normal outpatient dialysis schedule Assessment: see discharge summary
[2023-04-26 15:00] VITALS: BP 125/57; PULSE 73; RESP 18; TEMP 36.3; O2SAT 99
--- NOTE | 2023-04-26 15:36 | MHC.CM.PN ---
Patient is discharged today to home. She will resume HD @ [facility] on Monday04/28/23. [facility] was notified that patient is discharged today, and will resume HD Monday. [facility] was called. T/W spoke with Jennifer HANSON transitions coordinator. She was notified of dc today. She was also told that HD will resume Monday.
== END 2023-04-26 17:48 | disposition home or self-care (01) ==
LOC: HO.ED 21:51 → HO.EDOVER 22:06 → HO.S3 23:16
PROVIDERS: Hospitalist; Physician Assistant; Physician Assistant Medical; Admitting Provider Student in an Organized Health Care Education/Training Program; Emergency Provider Emergency Medicine; PCP Internal Medicine; Visit Provider Hospitalist
DX: N39.0 Urinary tract infection, site not specified (principal); E11.22 Type 2 diabetes mellitus with diabetic chronic kidney disease; I13.2 Hypertensive heart and chronic kidney disease with heart failure and with stage 5 chronic kidney disease, or end stage renal disease; N18.6 End stage renal disease; I50.32 Chronic diastolic (congestive) heart failure; D63.1 Anemia in chronic kidney disease; R19.7 Diarrhea, unspecified; R11.10 Vomiting, unspecified; R10.9 Unspecified abdominal pain; E78.2 Mixed hyperlipidemia; R33.9 Retention of urine, unspecified; Z99.2 Dependence on renal dialysis; Z79.4 Long term (current) use of insulin; Z86.73 Personal history of transient ischemic attack (TIA), and cerebral infarction without residual deficits; Z20.822 Contact with and (suspected) exposure to COVID-19; Z90.49 Acquired absence of other specified parts of digestive tract
CPT/HCPCS: 36415; 71045; 80048; 80053; 82947; 83735; 85025; 87507; 87635; 90999; 96365; 96366; 96372; 96375; 96376; 99221; 99285; J0696; J1643; J2270; J2405

== ENCOUNTER → 2023-04-21 21:58 | Outpatient (BNV) | payer OTHER, SELFPAY | PROVIDERS: Admitting Provider Student in an Organized Health Care Education/Training Program; Emergency Provider Emergency Medicine; Visit Provider Student in an Organized Health Care Education/Training Program | DX: N39.0 Urinary tract infection, site not specified (principal); N18.6 End stage renal disease; D64.9 Anemia, unspecified | CPT/HCPCS: 99222; 99233; 99239 ==

== ENCOUNTER 2023-05-25 08:32 | Outpatient (AMB) | payer OTHER, SELFPAY ==
--- NOTE | 2023-05-25 09:17 | MHC.OFFVIS ---
Intake Intake Visit Reasons: Fistula placement issues Intake Note: Left ARm fistula placed 02/20/23.Pt has dialysis Mon, mon, mon. They are still using the permacath and the fistula is still bruised Accompanied by: CHILDR[employer]OOK AUTHOR Allergies latex [LATEX] Allergy (Intermediate, Verified 05/25/23 09:18) ITCHY HPI Fistula placement issues HPI Details Very pleasant 68-year-old female presents for follow-up regarding left upper extremity brachiocephalic fistula. She had this originally placed on 02/20/2023. It appeared to be doing well and maturing well. Most recently was cannulated and she actually did get a treatment of dialysis with no issues on it postprocedure she developed a hematoma from that site. She had some discomfort of the hand. She now presents for follow-up evaluation regarding that. Of note she is currently being dialyzed through a right IJ tunneled catheter. She is on a Monday dialysis regimen. [facility] Medical History (Updated 05/25/23 @ 11:41 by Martin Ruelas MD) Acute on chronic renal failure Chronic heart failure with preserved ejection fraction (HFpEF) Chronic kidney disease CKD (chronic kidney disease) stage 4, GFR 15-29 ml/min Congestive heart failure Constipation Diabetes mellitus Dialysis patient, noncompliant End stage renal disease Essential hypertension Gastroparesis GERD (gastroesophageal reflux disease) HLD (hyperlipidemia) Hypomagnesemia Irritable bowel syndrome with diarrhea Ischemic necrosis of finger Non-ST elevated myocardial infarction Nonischemic cardiomyopathy Normocytic anemia Status post amputation of finger Thrombocytopenia Urinary tract infection due to ESBL Klebsiella Surgical History H/O surgical amputation of finger H/O: hysterectomy History of esophagogastroduodenoscopy (EGD) History of intestinal surgery History of laparoscopic cholecystectomy Hx of colonoscopy Hx of eye surgery Family History Father Lung cancer Mother Diabetes HTN (hypertension) Heart disease Sister Diabetes Heart disease Brother Heart disease Son Diabetes Daughter Diabetes Social History Household Members: Other Household Members Other:: SNF Housing: Snf Do you presently have visiting nurse or other home services: No Unable to assess alcohol history related to: Unknown Alcohol intake: never Patient Tobacco Use Status: Never used Tobacco Second Hand Smoke Exposure: No Advance Directives Date on File: 01/04/23 service: No Current occupational status: disabled Review of Systems Const All systems reviewed & are unremarkable except as noted in HPI and below Reports no additional complaints ENT Reports Normal hearing present Card Denies chest pain, Denies chest pain at rest, Denies chest pain with activity and Denies pedal edema Resp Denies cough GI Denies abdominal pain Musc Denies abnormal gait, Denies muscle cramps and Denies radiating pain into limb Skin/Breast Denies skin ulcer and Denies wounds Neuro Reports Normal hearing present and Denies abnormal gait Psych Reports no additional complaints Physical Exam Const General: cooperative, healthy appearing and comfortable Orientation/consciousness: oriented to person, oriented to place and oriented to time HEENT Head: Yes normal to inspection Neck Neck: Yes normal visual inspection Carotids: no bruits Chest Chest palpation & inspection: normal inspection of the chest Resp Effort & Inspection: normal respiratory effort and able to speak in complete sentences Auscultation: clear to auscultation bilaterally, no crackles, no rales, no rhonchi and no wheezes Cardio Other: Left upper extremity fistula at excellent thrill and bruit. Some mild hematoma surrounding that. She does have palpable brachial radial and ulnar pulses. Rate: regular rate Rhythm: regular rhythm Heart sounds: S1 normal heart sound present and S2 normal heart sound present Bruits: no carotid bruits Peripheral pulses: Peripheral pulses 2+ throughout GI Inspection: Yes normal to inspection Skin Wounds: no wounds Hair: normal Neuro General: oriented to person, oriented to place and oriented to time Cranial nerves: Yes CN's II-XII intact bilaterally and Yes Normal hearing present Cognition (Neuro): normal cognition Motor exam (neuro): 5/5 motor strength present throughout Extrem Other: venous exam: No significant superficial varicosities or spider telangiectasias, minimal edema General: No clubbing, No cyanosis and No edema Psych Appearance: grossly normal Mental Status: mental status grossly normal Speech and movement: Normal speech and movement present Assessment & Plan Assessment & Plan (1) End stage renal disease: Comment: 02/20/2023 - left upper extremity brachiocephalic fistula creation Code(s): N18.6 - End stage renal disease Plan: In short the fistula appears to be working well. She does have an excellent thrill and bruit on it. Would recommend allowing the hematoma to resolve in try to recannulate. At the current time she is stable and being dialyzed through a tunneled dialysis catheter. She will follow up with us on an as-needed basis. Thank you for allowing us to assist in her care. If there are any questions or concerns please do not hesitate to contact us. Medications: Discontinued tamsulosin 0.4 mg PO BEDTIME 30 caps 0RF carvedilol must administer with a meal/food - Take one tablet twice daily 6.25 mg PO BID 60 tabs 5RF Coding Level of Care Code Est Pt Level 4 (63527) Diagnoses End stage renal disease N18.6
== END 2023-05-25 09:37 | disposition home or self-care (01) ==
PROVIDERS: PCP Internal Medicine; Visit Provider Surgery Vascular Surgery
DX: N18.6 End stage renal disease (principal); T82.4 Mechanical complication of vascular dialysis catheter; Z95.828 Presence of other vascular implants and grafts
CPT/HCPCS: 99213

== ENCOUNTER → 2023-05-25 08:32 | Outpatient (BNVA) | payer OTHER, SELFPAY | PROVIDERS: PCP Internal Medicine; Visit Provider Surgery Vascular Surgery | DX: I12.9 Hypertensive chronic kidney disease with stage 1 through stage 4 chronic kidney disease, or unspecified chronic kidney disease (principal); N18.6 End stage renal disease | CPT/HCPCS: 99212 ==

== ENCOUNTER 2023-06-26 09:21 | Emergency (ER) | payer OTHER, SELFPAY ==
--- NOTE | ~2023-06-26 | XR_ITS ---
EXAMINATION: XR LUMBOSACRAL SPINE CLINICAL INFORMATION: Fall, pain. COMPARISON: CT abdomen/pelvis 04/20/2023. TECHNIQUE: Three views of the lumbosacral spine. FINDINGS: No evidence of acute compression deformity or traumatic subluxation. Trace anterolisthesis of L4 on L5 is unchanged. Mild intervertebral disc height loss at L5-S1. Mild to moderate facet arthropathy from L4 through S1 with equivocal neural foraminal encroachment at L5-S1. SI joints are symmetric. Pubic symphysis is maintained. Scattered atherosclerotic disease and vascular calcifications. Right upper quadrant surgical clips. No significant paraspinal soft tissue abnormality. XR/XR lumbar spine 2-3V IMPRESSION: 1. No acute compression deformity or malalignment. 2. Mild to moderate lower lumbar spondylosis, more prominent at L5-S1.
--- NOTE | ~2023-06-26 | CT_ITS ---
EXAMINATION: CT CERVICAL SPINE WITHOUT CONTRAST CLINICAL INFORMATION: Fall and neck pain. COMPARISON: Cervical spine CT January 01, 2020. TECHNIQUE: CT of the cervical spine was performed without contrast. Multiplanar reformats were rendered and reviewed. This CT examination was performed using dose optimization techniques as appropriate, variously including the following: *Automated exposure control *Adjustment of mA and/or kV according to patient size (this includes techniques or standardized protocols for targeted exams where dose is matched to indication/reason for exam; i.e. extremities or head) *Use of iterative reconstruction technique DLP: 509 mGy-cm FINDINGS: The cervical alignment appears normal and unchanged compared with prior. There is redemonstration of chronic angulated deformity of the C5 and C6 vertebral bodies with partial fusion across the disc space progressive opposing endplate Schmorl's nodes are seen at C3-C4 with associated endplate remodeling with subchondral cystic change, sclerosis, and severe disc height loss. There is progressive severe disc height loss at C6-C7 with prominent endplate spurring. There is facet ankylosis bilaterally at C5-C6 advanced facet arthropathy is seen on the right at C4-C5. Prominent subchondral cysts are seen within the right-sided inferior articulating facet of C7 as well as the superior articulating facet of T1, likely degenerative. No evidence of fracture. The imaged intracranial contents appear normal. Significant atheromatous changes are seen within the major neck arteries. There is a small to moderate size right pleural effusion. There is a partially visualized large bore right IJ central catheter. SPINAL LEVELS: C2-C3: No posterior disc abnormality. No spinal canal or neural foraminal stenosis. C3-C4: Mild disc osteophyte complex with uncovertebral hypertrophy and facet arthropathy. No spinal canal stenosis. Mild right neural foraminal stenosis. C4-C5: Disc osteophyte complex with uncovertebral hypertrophy resulting in mild spinal canal stenosis and severe left and moderate to severe right neural foraminal stenosis. C5-C6: No posterior disc abnormality. Mild left neural foraminal stenosis. C6-C7: Disc osteophyte complex with uncovertebral hypertrophy and facet arthropathy resulting in mild spinal canal stenosis and moderate left and mild to moderate right neural foraminal stenosis. C7-T1: No posterior disc abnormality. Significant facet arthropathy. Moderate right and mild left neural foraminal stenosis. CT/CT cervical spine wo IV con IMPRESSION: No acute fracture or traumatic malalignment identified. Redemonstration of chronic angulated deformity of the C5 and C6 vertebral bodies with partial fusion across the disc space. 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 No high-grade narrowing of the spinal canal. Neural foraminal stenosis appears severe on the left and moderate to severe on the right at C4-C5 and moderate on the left and mild to moderate on the right at C6-C7.
--- NOTE | ~2023-06-26 | XR_ITS ---
EXAMINATION: XR CHEST CLINICAL INFORMATION: Pain. COMPARISON: Chest radiograph 04/21/2023. TECHNIQUE: AP view of the chest was obtained. FINDINGS: Right-sided large bore central venous catheter with the tip overlying the region of the cavoatrial junction. A stable prominence of the cardiomediastinal silhouette. Central peribronchial and vascular prominence. Mild diffuse interstitial thickening. Small amount of left-sided pleural fluid. No pneumothorax. No acute displaced osseous fractures. XR/XR chest 1V IMPRESSION: Findings are suggestive of pulmonary edema, however an atypical infectious/inflammatory process cannot be entirely excluded in the appropriate clinical context.
[2023-06-26 09:28] VITALS: BP 151/45; PULSE 69; RESP 18; TEMP 36.8; O2SAT 97; BMI 33.2
--- NOTE | 2023-06-26 09:49 | ED.GENADULT ---
HPI - General Adult General Chief complaint: Abdominal Pain Stated complaint: ELOISA FLANK X'S 3 DAYS,MISSED DIALYSIS PER EMS Time Seen by Provider: 06/26/23 09:28 Source: patient and EMS Mode of arrival: EMS Limitations: no limitations History of Present Illness HPI narrative: a 68-year-old female history of ESRD on HD M/ W/ F last dialysis was Monday and patient missed today's dialysis, patient stated on Monday patient fell off the toilet landing on her both knees patient been having mid back pain and bilateral flank pain for the past 3 days pain is severe 07/11 main the patient missed her dialysis on Monday. No SOB, no PND, no head injury, no LOC, no headache, neck pain no upper extremities tingling or numbness or weakness. Related Data Home Medications Medication Instructions Recorded Confirmed aspirin 81 mg tablet,delayed 81 mg PO BEDTIME 06/20/21 04/21/23 release atorvastatin 80 mg tablet 80 mg PO BEDTIME 06/20/21 04/21/23 clopidogrel 75 mg tablet 75 mg PO DAILY 06/20/21 04/21/23 trazodone 50 mg tablet 50 mg PO BEDTIME 06/20/21 04/21/23 insulin glargine 100 unit/mL (3 20 unit subcut DAILY 03/25/22 04/21/23 mL) subcutaneous pen (Lantus Solostar U-100 Insulin) ipratropium 0.5 mg-albuterol 3 mg 3 ml inhalation Q4H PRN Wheezing 05/05/22 04/21/23 (2.5 mg base)/3 mL nebulization soln furosemide 40 mg tablet (Lasix) 40 mg PO DAILY 10/14/22 04/21/23 insulin lispro 100 unit/mL See Protocol subcut QIDACHS 10/14/22 04/21/23 subcutaneous solution (Humalog U-100 Insulin) acetaminophen 500 mg tablet 1,000 mg PO Q6H PRN Fever Or Pain 10/15/22 04/21/23 melatonin 3 mg tablet 3 mg PO BEDTIME 12/27/22 04/21/23 pantoprazole 40 mg tablet,delayed 40 mg PO DAILY 12/27/22 04/21/23 release tamsulosin 0.4 mg capsule 0.8 mg PO BEDTIME 12/27/22 04/21/23 amlodipine 5 mg tablet 5 mg PO DAILY 04/20/23 04/21/23 carvedilol 6.25 mg tablet 6.25 mg PO BIDWM 04/20/23 04/21/23 magnesium oxide 400 mg (241.3 mg 400 mg PO DAILY 04/20/23 04/21/23 magnesium) tablet blood sugar diagnostic (TamtronTouch #10 ea 05/25/23 Ultra Test strips) insulin aspart U-100 100 unit/mL 8 - 12 unit subcut DIRECTED 05/25/23 (3 mL) subcutaneous pen (Novolog FlexPen U-100 Insulin aspart) lancets 33 gauge (OneTouch Delica #100 ea 05/25/23 Plus Lancet) pen needle, diabetic 32 gauge x #1,200 ea 05/25/23 (Pentips) Previous Rx's Medication Instructions Recorded bethanechol chloride 25 mg tablet 25 mg PO BID #60 tabs 10/19/22 albuterol sulfate 90 mcg/actuation 1 inh inhalation QID PRN shortness 03/16/23 aerosol inhaler of breath or wheezing #8.5 grams cefdinir 300 mg capsule 300 mg PO . q.o.d. #2 caps 04/26/23 Allergies Allergy/AdvReac Type Severity Reaction Status Date / Time latex [LATEX] Allergy Intermediate ITCHY Verified 05/25/23 09:18 Review of Systems Review of Systems: All other systems are reviewed and are negative Constitutional: Reports as per HPI and Reports no additional constitutional complaints Eyes: Reports as per HPI and Reports no additional eye complaints Reports system reviewed and no additional complaints, except as documented Cardiovascular: Reports as per HPI and Reports no additional cardiovascular complaints Respiratory: Reports as per HPI and Reports no additional respiratory complaints Gastrointestinal: Reports as per HPI and Reports no additional gastrointestinal complaints Genitourinary: Reports no additional female genitourinary complaints Musculoskeletal: Reports no additional musculoskeletal complaints Skin/Breast: Reports system reviewed and no additional complaints, except as docu Psychiatric: Reports no additional psychiatric complaints Endocrine: Reports no additional endocrine complaints Hematologic/Lymphatic: Reports no additional hematologic/lymphatic complaints Allergic/Immunologic: Reports no additional allergic/immunologic complaints Reports system reviewed and no additional complaints, except as documented and Reports Abnormal speech present [facility] Past Medical History Medical History Dialysis patient, noncompliant Chronic kidney disease Thrombocytopenia CKD (chronic kidney disease) stage 4, GFR 15-29 ml/min End stage renal disease Constipation 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 Normocytic anemia Urinary tract infection due to ESBL Klebsiella Chronic heart failure with preserved ejection fraction (HFpEF) Hypomagnesemia Acute on chronic renal failure Essential hypertension HLD (hyperlipidemia) Non-ST elevated myocardial infarction Diabetes mellitus Congestive heart failure Nonischemic cardiomyopathy Irritable bowel syndrome with diarrhea Gastroparesis GERD (gastroesophageal reflux disease) Surgical History H/O surgical amputation of finger History of laparoscopic cholecystectomy History of intestinal surgery Hx of eye surgery History of esophagogastroduodenoscopy (EGD) Hx of colonoscopy H/O: hysterectomy Family History Family History Father Lung cancer Mother Diabetes HTN (hypertension) Heart disease Sister Diabetes Heart disease Brother Heart disease Son Diabetes Daughter Diabetes Social History Social History Household Members: Other Household Members Other:: SNF Housing: Assisted Do you presently have visiting nurse or other home services: No Unable to assess alcohol history related to: Unknown Alcohol intake: never Patient Tobacco Use Status: Never used Tobacco Second Hand Smoke Exposure: No Advance Directives: Yes Advance Directives on File: Yes Advance Directives Date on File: 01/04/23 service: No Current occupational status: disabled Physical Exam ED Vital Signs: Vital Signs - 24 hr 06/26/23 09:28 06/26/23 11:57 06/26/23 14:17 Temperature 98.2 F 97.9 F 98.1 F Pulse Rate 69 68 70 Respiratory Rate 18 18 18 Blood Pressure 151/45 H 151/64 H 158/61 H Pulse Oximetry 97 97 97 Oxygen Delivery Method Room Air Room Air Room Air BMI result Body Mass Index 33.2 Vital signs have been reviewed and appear to be correct. Blood pressure elevated. Heart rate normal. Respiratory rate normal. Temperature normal. Oxygen saturation normal. Appearance: Alert. Oriented X3. No acute distress. Head: Normal external exam. Normocephalic. Atraumatic. No Jones signs noted. No raccoon eyes noted Eyes: PERRLA. EOMI. Conjunctiva and sclera normal. Eyelids normal. ENT: TM's Normal. Pharynx normal. Uvula midline. Moist mucous membranes. No trismus noted. No drooling noted. No muffled voice noted. Neck: Normal inspection. Neck supple. FROM. No adenopathy. Thyroid Normal. No meningeal signs. No neck mass noted. CVS: Normal heart rate and rhythm. Heart sound normal. No murmurs noted. Pulses normal throughout. Respiratory: No respiratory distress. Painless inspiration. Breath sounds normal. No wheezes/rales/rhonchi noted. Chest nontender. No accessory muscle usage noted or decreased air movement noted. Abdomen: Soft and nontender. Bowel sounds normal in all 4 quadrants. No distention noted. No organomegaly noted. No visible injury noted. Back: No CVA tenderness. Full range of motion noted. Skin: Skin warm and dry. Normal skin color. Normal skin turgor. No rashes/lesions/lacerations noted. Extremities: No lower extremity edema. Extremities exhibit normal range of motion. Extremities nontender. Neuro: Oriented X 3. Cranial nerve exam: II-XII are grossly intact No motor deficit. No sensory deficit. Reflexes normal. Course Course Course Narrative: a 68-year-old female end-stage renal disease on hemodialysis missed his last dialysis came in today for back pain after she fell, no acute injury patient feels better with oxycodone. Patient also found to have a UTI will start the patient on cefuroxime. no indication for emergency dialysis will discharge to follow up with the Renal. Medications Administered Discontinued Medications Generic Name Dose Route Start Last Admin Trade Name Freq PRN Reason Stop Dose Admin Oxycodone HCl 5 mg 06/26/23 09:49 06/26/23 10:39 Oxycodone Hcl Immed Release 5 Mg Tablet PO 06/26/23 09:50 5 mg ONCE ONE Administration Medical Decision Making Differential Diagnosis Differential Diagnoses: The differential diagnosis associated with the presentation includes ( UTI, electrolyte abnormality, severe anemia, traumatic back pain, lumbar spine fracture, cervical spine injury.) Admission/Observation Consideration of admission/observation: Escalation of care including admission/observation considered Lab Data MDM Lab Attestation statement: I reviewed the patient's lab results. 06/26/23 10:29 06/26/23 10:29 Labs: Lab Results 06/26/23 06/26/23 Range/Units 10:29 13:58 WBC 8.6 (4.8-10.8) X10*3/uL RBC 3.72 L (4.20-5.50) X10*6/uL Hgb 10.2 L (12.0-16.0) g/dl Hct 32.1 L (37.0-47.0) % MCV 86.3 (80.0-98.0) fL MCH 27.4 (27.0-33.0) pg MCHC 31.8 (31.0-35.0) g/dl RDW 13.7 (11.0-16.0) % Plt Count 198 (160-400) X10*3/uL MPV 10.6 (9.4-12.3) fL Immature Gran % (Auto) 0.4 (0.0-0.4) % Neut % (Auto) 72.2 (45-73) % Lymph % (Auto) 17.9 L (20-40) % Smith % (Auto) 6.1 (2-11) % Eos % (Auto) 3.2 (0-4) % Baso % (Auto) 0.2 (0-2) % Lymph # (Auto) 1.5 (1.2-4.9) X10*3/uL Smith # (Auto) 0.5 (0.1-1.2) X10*3/uL Eos # (Auto) 0.3 (0.0-0.4) X10*3/uL Baso # (Auto) 0.0 (0.0-0.2) X10*3/uL Abs Immat Gran (auto) 0.03 (0.00-0.03) X10*3/uL Absolute Neuts (auto) 6.2 (2.0-8.3) x10*3/uL Absolute Nucleated RBC 0.000 (0.0-0.012) X10*3/uL Nucleated RBC % (auto) 0.0 (0.0-0.2) /100WBC Sodium 139 (135-145) mmol/L Potassium 4.6 D (3.3-5.1) mmol/L Chloride 103 (96-108) mmol/L Carbon Dioxide 22 (22-29) mmol/L Anion Gap 19 (12-20) BUN 44 H (9-16) mg/dL Creatinine 4.23 H* (0.5-1.4) mg/dL Estim Creat Clear Calc 10.4 Estimated GFR 10 Random Glucose 188 H (60-115) mg/dL Calcium 8.5 D (8.4-10.2) mg/dL Total Bilirubin 0.3 (0.0-1.0) mg/dL Direct Bilirubin 0.1 (0.0-0.5) mg/dL AST 8 (5-31) U/L ALT 8 (0-31) U/L Alkaline Phosphatase 204 H (39-117) U/L B-Natriuretic Peptide 2459 H (<100) pg/mL Total Protein 6.9 (6.5-8.0) g/dL Albumin 3.3 L (3.5-5.0) g/dL Lipase 9 (8-78) U/L Urine Color Yellow Urine Appearance Turbid Urine pH 6.0 (5.0-9.0) Ur Specific [place] 1.020 (1.005-1.025) Urine Protein >=1000 (4+) H (Neg-Trace) mg/dL Urine Glucose (UA) 100 H (Negative) mg/dL Urine Ketones Negative (Negative) mg/dL Urine Blood Moderate (2+) H (Negative) Urine Nitrite Negative (Negative) Ur Leukocyte Esterase Moderate (2+) H (Negative) Urine RBC >20 H (0-2) /HPF Urine WBC >50 H (0-5) /HPF Ur Squamous Epith Cells 0-2 (0-2) /HPF Urine Bacteria 4+ (None Seen) Hyaline Casts 6-10 (0-2) /LPF Independent Interpretation I performed an independent interpretation of an: Plain X-Ray ( lumbar spine: No acute compression deformity or malalignment.) and CT Scan ( Cervical spine: No acute fracture or traumatic malalignment identified. Redemonstration of chronic angulated deformity of the C5 and C6 vertebral bodies with partial fusion across the disc space. Progressive degenerative spondylotic changes are seen at C3-C4 and right C6-C7 facet, possibly on the ) Radiology Impression Discussion of test interpretation with radiology: I have reviewed the radiologist's reading. Chronic Conditions Patient?s care impacted by: Other ( End-stage renal disease) Discharge Plan Discharge Clinical Impression: End stage renal disease, Back pain Patient Disposition: Home, Self-Care Instructions: Chronic Back Pain (DC) Prescriptions: No Action atorvastatin 80 mg tablet 80 mg PO BEDTIME trazodone 50 mg tablet 50 mg PO BEDTIME clopidogrel 75 mg tablet 75 mg PO DAILY aspirin 81 mg tablet,delayed release (DR/EC) 81 mg PO BEDTIME insulin glargine [Lantus Solostar U-100 Insulin] 100 unit/mL (3 mL) insulin pen 20 unit subcut DAILY ipratropium-albuterol 0.5 mg-3 mg(2.5 mg base)/3 mL Solution For Nebulization 3 ml INHALATION Q4H PRN (Reason: Wheezing) insulin lispro [Humalog U-100 Insulin] 100 unit/mL solution See Protocol subcut QIDACHS Protocol: Insulin Correction Scale Less than or equal to 110 ---- Give (units): 0 111 to 150 Give (units): 0 151 to 200 Give (units): 2 201 to 250 Give (units): 4 251 to 300 Give (units): 6 301 to 350 Give (units): 8 Greater than 350 Give (units): 10 Call MD if Blood Glucose > : 350 Rx Instructions: sliding scale furosemide [Lasix] 40 mg tablet 40 mg PO DAILY Rx Instructions: Please call and schedule cardiology appt. acetaminophen 500 mg Tablet 1,000 mg PO Q6H PRN (Reason: Fever Or Pain) Rx Instructions: do not exceed 3 grams / 24 hours bethanechol chloride 25 mg Tablet 25 mg PO BID Qty: 60 0RF albuterol sulfate 90 mcg/actuation HFA aerosol inhaler 1 inh inhalation QID PRN (Reason: shortness of breath or wheezing) Qty: 8.5 0RF amlodipine 5 mg tablet 5 mg PO DAILY magnesium oxide 400 mg (241.3 mg magnesium) tablet 400 mg PO DAILY carvedilol 6.25 mg tablet 6.25 mg PO BIDWM Rx Instructions: must administer with a meal/food - Take one tablet twice daily melatonin 3 mg Tablet 3 mg PO BEDTIME pantoprazole 40 mg tablet,delayed release (DR/EC) 40 mg PO DAILY tamsulosin 0.4 mg capsule 0.8 mg PO BEDTIME cefdinir 300 mg capsule 300 mg PO . q.o.d. Qty: 2 0RF Rx Instructions: after dialysis (DME) lancets [OneTouch Delica Plus Lancet] 33 gauge misc See Rx Instructions .ROUTE TID Qty: 100 Rx Instructions: As directed (DME) pen needle, diabetic [Pentips] 32 gauge x 5/32 needle See Rx Instructions .ROUTE DIRECTED Qty: 1200 Rx Instructions: As directed (DME) OneTouch Ultra Test Strip See Rx Instructions .ROUTE TID Qty: 10 Rx Instructions: As directed insulin aspart U-100 [Novolog FlexPen U-100 Insulin] 100 unit/mL (3 mL) insulin pen 8 - 12 unit subcut DIRECTED Referrals: Alexys Avila MD [Primary Care Provider] -
--- NOTE | 2023-06-26 09:55 | PC.NURSE ---
pt currently being transferred to CT. will administer medications when able.
[2023-06-26 10:35] LABS: MANUAL DIFF FLAG NO
[2023-06-26 10:36] LABS: Basophils Percent Auto 0.2 % (0-2); Eosinophils Absolute Auto 0.3 X10*3/uL (0.0-0.4); Eosinophils Percent Auto 3.2 % (0-4); Hematocrit 32.1 % (37.0-47.0); Hemoglobin 10.2 g/dl (12.0-16.0); Imm Gran Abs Auto 0.03 X10*3/uL (0.00-0.03); Imm Gran Pct Auto 0.4 % (0.0-0.4); Lymphocytes Absolute Auto 1.5 X10*3/uL (1.2-4.9); Lymphocytes Percent Auto 17.9 % (20-40); Mean Corpuscular HGB Conc 31.8 g/dl (31.0-35.0); Mean Corpuscular Hemoglobin 27.4 pg (27.0-33.0); Mean Corpuscular Volume 86.3 fL (80.0-98.0); Mean Platelet Volume 10.6 fL (9.4-12.3); Monocytes Absolute Auto 0.5 X10*3/uL (0.1-1.2); Monocytes Percent Auto 6.1 % (2-11); Neutrophils Absolute Auto 6.2 x10*3/uL (2.0-8.3); Neutrophils Percent Auto 72.2 % (45-73); Platelet Count 198 X10*3/uL (160-400); Red Blood Count 3.72 X10*6/uL (4.20-5.50); Red Cell Distribution Width 13.7 % (11.0-16.0); White Blood Count 8.6 X10*3/uL (4.8-10.8)
[2023-06-26] MEDS: oxyCODONE HCl Immed Release 5 MG TABLET PO (10:39)
--- NOTE | 2023-06-26 10:40 | PC.NURSE ---
medication administered per provider order. pt resting comfortably in no apparent distress. respirations even and unlabored. will reasses pain level shortly. call peck placed within reach.
[2023-06-26 10:51] LABS: Alanine Aminotransferase 8 U/L (0-31); Albumin Level 3.3 g/dL (3.5-5.0); Alkaline Phosphatase 204 U/L (39-117); Anion Gap 19 (12-20); Aspartate Amino Transferase 8 U/L (5-31); Bilirubin Direct 0.1 mg/dL (0.0-0.5); Bilirubin Total 0.3 mg/dL (0.0-1.0); Blood Urea Nitrogen 44 mg/dL (9-16); Calcium 8.5 mg/dL (8.4-10.2); Carbon Dioxide 22 mmol/L (22-29); Chloride 103 mmol/L (96-108); Glucose Random 188 mg/dL (60-115); Lipase 9 U/L (8-78); Potassium 4.6 mmol/L (3.3-5.1); Sodium 139 mmol/L (135-145); Total Protein 6.9 g/dL (6.5-8.0)
[2023-06-26 10:56] LABS: B Type Natriuretic Peptide 2459 pg/mL (<100)
[2023-06-26 10:59] LABS: Creatinine Clr Calc Pharmacy 10.4; Estimated Glomerular Filt Rate 10
[2023-06-26 11:57] VITALS: BP 151/64; PULSE 68; RESP 18; TEMP 36.6; O2SAT 97
[2023-06-26 14:16] LABS: Appearance Urine Turbid; Color Urine Yellow; Glucose Urine UA 100 mg/dL (Negative); Leukocyte Esterase Urine Moderate (2+) (Negative); Nitrite Urine Negative (Negative); UMIC TRIGGER UACC YES; Urine Blood Moderate (2+) (Negative); Urine Ketones Negative (Negative); Urine Protein >=1000 (4+) mg/dL (Neg-Trace)
[2023-06-26 14:17] VITALS: BP 158/61; PULSE 70; RESP 18; TEMP 36.7; O2SAT 97
[2023-06-26 14:26] LABS: Bacteria Urine 4+ (None Seen); RBC Urine >20 /HPF (0-2); Squamous Epithelial Cell Urine 0-2 /HPF (0-2); UACC Culture Trigger YES; WBC Urine >50 /HPF (0-5)
--- NOTE | 2023-06-26 15:30 | PC.NURSE ---
pt currently sleeping at this time. respirations even and unlabored. call peck placed within reach.
[2023-06-26 16:00] VITALS: BP 139/49; PULSE 71; RESP 18; TEMP 36.8; O2SAT 96
--- NOTE | 2023-06-26 16:07 | PC.NURSE ---
vss and up to date. nsr on the front desk monitor. pt medicated per provider. pt's discharge paperwork in. call pt's daughter to arrange transportation. daughter's phone off the hook and not working. will try again shortly. pt resting comfortably in no apparent distress. respirations even and unlabored. call peck placed within this reach.
--- NOTE | 2023-06-26 17:54 | PC.NURSE ---
pt's daughter here to visit. notified pt that I tried calling her to arrange transportation for discharge but daughter states that she does not have a phone. daughter states she needs ambulance ride to bring her home and is requesting that provider orders/prescribes her pain medication prior to leaving because she is unable to sleep at night d/t the pain. will notify provider.
== END 2023-06-26 18:35 | disposition home or self-care (01) ==
PROVIDERS: Emergency Provider Emergency Medicine; PCP Internal Medicine
DX: M54.2 Cervicalgia (principal); M54.50 Low back pain, unspecified; E11.22 Type 2 diabetes mellitus with diabetic chronic kidney disease; I13.2 Hypertensive heart and chronic kidney disease with heart failure and with stage 5 chronic kidney disease, or end stage renal disease; N18.6 End stage renal disease; I50.9 Heart failure, unspecified; Z99.2 Dependence on renal dialysis; Z91.158 Patient's noncompliance with renal dialysis for other reason; Z79.82 Long term (current) use of aspirin; Z79.4 Long term (current) use of insulin
CPT/HCPCS: 36415; 51701; 71045; 72100; 72125; 80048; 80076; 81001; 83690; 83880; 85025; 87086; 87088; 87186; 99284; 99285

== ENCOUNTER 2023-07-24 16:53 | Inpatient (IN) | payer OTHER, SELFPAY ==
--- NOTE | ~2023-07-24 | CT_ITS ---
EXAMINATION: CT ABDOMEN AND PELVIS WITHOUT CONTRAST CLINICAL INFORMATION: Pain, constipation and vomiting COMPARISON: Previous CT of the abdomen and pelvis most recent April 2023 TECHNIQUE: Multidetector volumetric imaging was performed from the superior aspect of the liver through the pubic symphysis. Sagittal and coronal reformatted images were obtained on the technologist's workstation. This CT examination was performed using dose optimization techniques as appropriate, variously including the following: *Automated exposure control *Adjustment of mA and/or kV according to patient size (this includes techniques or standardized protocols for targeted exams where dose is matched to indication/reason for exam; i.e. extremities or head) *Use of iterative reconstruction technique DLP: 523 mGy-cm FINDINGS: LUNG BASES: Subsegmental atelectasis at the lung bases and small bilateral pleural effusions, right greater than left. Enlarged heart. Coronary artery calcification. Small pericardial effusion. LIVER, GALLBLADDER, AND BILIARY TREE: The liver is normal in size, shape, and attenuation. No focal hepatic lesion or biliary ductal dilatation is present. The gallbladder has been removed. PANCREAS: Unremarkable. SPLEEN: Calcifications probably related to old granulomatous disease. ADRENAL GLANDS: Unremarkable. KIDNEYS AND URETERS: The kidneys are normal in size, shape, and attenuation. No hydronephrosis, hydroureter, or calculi seen. No perinephric stranding. BLADDER: There is air in the wall of the bladder. Suggestive of emphysematous cystitis. GASTROINTESTINAL TRACT: Diverticulosis of the colon. No evidence of diverticulitis. Postsurgical changes to the small bowel. Normal appendix. Normal stomach. ABDOMINAL WALL: Evidence of previous ventral hernia repair with mesh. LYMPH NODES: Normal. VASCULAR: Atherosclerotic disease. No aneurysm PELVIC VISCERA: Unremarkable. OSSEOUS STRUCTURES: Degenerative changes and CT/CT abdomen pelvis wo IV con IMPRESSION: Air in the wall of the bladder suggestive of emphysematous cystitis. Severe atherosclerotic disease. Diverticulosis. Small bilateral pleural effusions. Small pericardial effusion. 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 Fleischner guidelines were followed.
--- NOTE | ~2023-07-24 | FL_ITS ---
EXAMINATION: FL BARIUM SWALLOW CLINICAL INFORMATION: Dysphagia COMPARISON: Previous CT of the abdomen and pelvis May 2023, chest x-ray 2022 and barium swallow December 2019 TECHNIQUE: Barium swallow examination is performed using fluoroscopic evaluation in addition to multiple fluoroscopic spot views. The patient is imaged both upright and prone and using both thick and thin sulfate along with effervescent granules. Barium tablet was also administered. Fluoroscopy time: 1 minutes DAP: 1812 uGym2 Total dose 40 mgy. Images: 24 FINDINGS: Exam is limited due to limited patient mobility. Patient was administered thin and thick barium and effervescent granules. Barium tablet was also administered. The swallowing mechanism is normal. No aspiration or penetration. There is slightly abnormal esophageal motility with tertiary contractions. There is temporary stasis of the barium tablet at the GE junction. There is gastroesophageal reflux. There is question of mild narrowing or stricture at the GE junction and small proximal gastric ulcer. No esophageal hernia seen. FL/FL barium swallow IMPRESSION: Limited exam due to patient mobility. Slightly abnormal esophageal motility with tertiary contractions. Gastroesophageal reflux and temporary stasis of the barium tablet the GE junction. Question mild stricture at the GE junction and proximal gastric ulcer.
[2023-07-24 17:11] VITALS: BP 128/54; PULSE 72; RESP 16; TEMP 36.8; O2SAT 97; O2SAT 98; BMI 32.3
--- NOTE | 2023-07-24 17:32 | ECG_ITS ---
Test Reason : ABDOMINAL PAIN Blood Pressure : / mmHG Vent. Rate : 071 BPM Atrial Rate : 071 BPM P-R Int : 150 ms QRS Dur : 122 ms QT Int : 474 ms P-R-T Axes : 000 -21 -69 degrees QTc Int : 515 ms Sinus rhythm with occasional Premature ventricular complexes Minimal voltage criteria for LVH, may be normal variant ( Heriberto product ) Intra-ventricular conduction delay Left axis deviation T-wave inversion in Lateral leads Abnormal ECG When compared with ECG of 20-APR-2023 14:27, Premature ventricular complexes are now Present Premature atrial complexes are no longer Present Nonspecific T wave abnormality has replaced inverted T waves in Inferior leads Referred By: Tia Donis Electronically Signed By:JULIO SEGUNDO MD
--- NOTE | 2023-07-24 17:38 | ED_ITS ---
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 She is passing some gas. She notes she has had UTI in the past. She notes she was nauseated during HD which she finished today and was given zofran. She has has this pain before. She has not tried any OTC constipation medications. MD elicited complaint: abdominal pain Pertinent past history: constipation Onset (ago): day(s) (2) Pain Consistency: constant Location: diffuse and epigastric Severity: moderate Quality: cramping Radiation: none Migration to: no migration Exacerbating factors: movement Relieving factors: nothing Context: history of similar episodes Associated symptoms: nausea, constipation and other (urinary retention) Related Data Home Medications Medication Instructions Recorded Confirmed aspirin 81 mg tablet,delayed 81 mg PO BEDTIME 06/20/21 07/24/23 release atorvastatin 80 mg tablet 80 mg PO BEDTIME 06/20/21 07/24/23 clopidogrel 75 mg tablet 75 mg PO DAILY 06/20/21 07/24/23 trazodone 50 mg tablet 50 mg PO BEDTIME 06/20/21 07/24/23 insulin glargine 100 unit/mL (3 20 unit subcut DAILY 03/25/22 07/24/23 mL) subcutaneous pen (Lantus Solostar U-100 Insulin) ipratropium 0.5 mg-albuterol 3 mg 3 ml inhalation Q4H PRN Wheezing 05/05/22 07/24/23 (2.5 mg base)/3 mL nebulization soln melatonin 3 mg tablet 3 mg PO BEDTIME PRN Insomnia 12/27/22 07/24/23 amlodipine 5 mg tablet 5 mg PO DAILY 04/20/23 07/24/23 carvedilol 6.25 mg tablet 6.25 mg PO BIDWM 04/20/23 07/24/23 magnesium oxide 400 mg (241.3 mg 400 mg PO DAILY 04/20/23 07/24/23 magnesium) tablet blood sugar diagnostic (OneTouch #10 ea 05/25/23 Ultra Test strips) insulin aspart U-100 100 unit/mL 8 - 12 unit subcut DIRECTED 05/25/23 07/24/23 (3 mL) subcutaneous pen (Novolog FlexPen U-100 Insulin aspart) lancets 33 gauge (OneTouch Delica #100 ea 05/25/23 Plus Lancet) pen needle, diabetic 32 gauge x #1,200 ea 05/25/23 (Pentips) Previous Rx's Medication Instructions Recorded albuterol sulfate 90 mcg/actuation 1 inh inhalation QID PRN shortness 03/16/23 aerosol inhaler of breath or wheezing #8.5 grams Allergies Allergy/AdvReac Type Severity Reaction Status Date / Time latex [LATEX] Allergy Intermediate ITCHY Verified 05/25/23 09:18 Review of Systems Review of Systems Constitutional : No Weight loss, No Fever, No Chills ENT/Mouth : No sore throat, No Rhinorrhea Eyes: No Swelling, No Redness Cardiovascular : No Chest Pain, No SOB, NoEdema Respiratory : No Cough, No Sputum, No Wheezing Gastrointestinal : Positive Nausea, no Vomiting, no Diarrhea, positive abdominal Pain, No Hematochezia, No Melena, pos constipation Genitourinary : No Dysuria, No Urinary Frequency, No Hematuria, No Urgency , pos retention Musculoskeletal : No joint pain, No Myalgias, No Joint Swelling Skin : No Skin Lesions, No rash Neuro : No Weakness, No Numbness, No Dizziness, No Headache Psych : No Anxiety/Panic, No Depression All other systems reviewed and are negative. 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 Normocytic anemia Urinary tract infection due to ESBL Klebsiella Chronic heart failure with preserved ejection fraction (HFpEF) Hypomagnesemia Acute on chronic renal failure Essential hypertension HLD (hyperlipidemia) Non-ST elevated myocardial infarction Diabetes mellitus Congestive heart failure Nonischemic cardiomyopathy Irritable bowel syndrome with diarrhea Gastroparesis GERD (gastroesophageal reflux disease) Surgical History H/O surgical amputation of finger History of laparoscopic cholecystectomy History of intestinal surgery Hx of eye surgery History of esophagogastroduodenoscopy (EGD) Hx of colonoscopy H/O: hysterectomy Family History Family History Father Lung cancer Mother Diabetes HTN (hypertension) Heart disease Sister Diabetes Heart disease Brother Heart disease Son Diabetes Daughter Diabetes Social History Social History Household Members: Other Household Members Other:: SNF Housing: Custodial Do you presently have visiting nurse or other home services: No Unable to assess alcohol history related to: Unknown Alcohol intake: never Patient Tobacco Use Status: Never used Tobacco Smoked in Last 30 Days: No Second Hand Smoke Exposure: No Use of substances other than those prescribed or required for medical reasons: No Advance Directives: Yes Advance Directives on File: Yes Advance Directives Date on File: 01/04/23 Nutrition Risks: No Nutritional Risk service: No Current occupational status: disabled Physical Exam ED Vital Signs: Vital Signs - 24 hr 07/24/23 17:11 07/24/23 20:05 Temperature 98.3 F 98.1 F Pulse Rate 72 69 Respiratory Rate 16 18 Blood Pressure 128/54 L 160/54 H Pulse Oximetry 98 94 Oxygen Delivery Method Room Air Room Air BMI result Body Mass Index 32.3 Appearance: Alert. Oriented X3. No acute distress. Eyes: Pupils equal, round and reactive to light. ENT: Pharynx normal. Neck: Normal inspection. Neck supple. CVS: Normal heart rate and rhythm. Pulses normal. Respiratory: No respiratory distress. Breath sounds normal. Abdomen: Soft and mild diffuse ttp Skin: Skin warm and dry. Normal skin color. Normal skin turgor. Extremities: No lower extremity edema. No calf ttp Neuro: Oriented X 3. No motor deficit. No sensory deficit. Medical Decision Making Medical Decision Making MDM Narrative: 68 yo female with ESRD on HD MWF, CVA, DM, asthma, HTN, UTI, GERD, anemia, CHF, HLD here with c/o urinary retention x 1 days, constipation x 2 days but passing gas and with some nausea, no fevers. At this time will need basic labs, UA, bladder scan, CT scan for obstruction, PO morphine we have seen her for this in the past - UA is S to cephalosporin E. Coli in past. Differential Diagnosis Differential Diagnoses: The differential diagnosis associated with the presentation includes chronic pain, constipation, retention Admission/Observation Consideration of admission/observation: Escalation of care including admission/observation considered admit given emphysematous cystitis Consult Healthcare Provider Management of the patient was discussed with: Hospitalist (will admit) Lab Data MDM Lab Attestation statement: I reviewed the patient's lab results. 07/24/23 19:19 07/24/23 19:19 Labs: Lab Results 07/24/23 07/24/23 Range/Units 19:19 20:09 WBC 8.0 (4.8-10.8) X10*3/uL RBC 3.82 L (4.20-5.50) X10*6/uL Hgb 10.3 L (12.0-16.0) g/dl Hct 32.4 L (37.0-47.0) % MCV 84.8 (80.0-98.0) fL MCH 27.0 (27.0-33.0) pg MCHC 31.8 (31.0-35.0) g/dl RDW 13.6 (11.0-16.0) % Plt Count 159 L (160-400) X10*3/uL MPV 10.6 (9.4-12.3) fL Immature Gran % (Auto) 0.4 (0.0-0.4) % Neut % (Auto) 73.8 H (45-73) % Lymph % (Auto) 15.7 L (20-40) % [place] % (Auto) 7.5 (2-11) % Eos % (Auto) 2.2 (0-4) % Baso % (Auto) 0.4 (0-2) % Lymph # (Auto) 1.3 (1.2-4.9) X10*3/uL [place] # (Auto) 0.6 (0.1-1.2) X10*3/uL Eos # (Auto) 0.2 (0.0-0.4) X10*3/uL Baso # (Auto) 0.0 (0.0-0.2) X10*3/uL Abs Immat Gran (auto) 0.03 (0.00-0.03) X10*3/uL Absolute Neuts (auto) 5.9 (2.0-8.3) x10*3/uL Absolute Nucleated RBC 0.000 (0.0-0.012) X10*3/uL Nucleated RBC % (auto) 0.0 (0.0-0.2) /100WBC Sodium 137 (135-145) mmol/L Potassium 3.9 (3.3-5.1) mmol/L Chloride 99 (96-108) mmol/L Carbon Dioxide 28 (22-29) mmol/L Anion Gap 14 (12-20) BUN 16 (9-16) mg/dL Creatinine 2.06 H (0.5-1.4) mg/dL Estim Creat Clear Calc 21.0 Estimated GFR 24 Random Glucose 328 H (60-115) mg/dL Lactic Acid 1.8 (0.5-2.0) mmol/L Calcium 8.3 L (8.4-10.2) mg/dL Magnesium 1.7 (1.6-2.6) mg/dL Total Bilirubin 0.3 (0.0-1.0) mg/dL Direct Bilirubin 0.1 (0.0-0.5) mg/dL AST 9 (5-31) U/L ALT 7 (0-31) U/L Alkaline Phosphatase 207 H (39-117) U/L Total Protein 6.5 (6.5-8.0) g/dL Albumin 3.2 L (3.5-5.0) g/dL Lipase 10 (8-78) U/L Independent Interpretation I performed an independent interpretation of an: EKG and CT Scan (cystitis) Interpretation: Rate: 71 Rhythm: NSR with PVC [place]: left Normal P waves. Normal DONNIE. Normal QRS complex. ST T wave : no RICKY, inverted t waves in V3-V6, qTC: prolonged prior studies: no acute disease The study has been interpreted contemporaneously by me. . Radiology Impression Discussion of test interpretation with radiology: I have reviewed the radiologist's reading. Independent Historian Clinical information obtained from an independent historian. History obtained from or confirmed by: EMS External Record Review External record reviewed: Inpatient record Medications Administered Generic Name Dose Route Start Last Admin Trade Name Freq PRN Reason Stop Dose Admin Heparin Sodium (Porcine) 5,000 unit 07/24/23 21:00 07/24/23 20:58 Heparin Sodium,Porcine 5,000 Unit/Ml Vial SUBCUT 5,000 unit Q12H MATTY Administration Ceftriaxone Sodium 1 gm/ 50 mls @ 100 mls/hr 07/24/23 20:30 07/24/23 21:30 Sodium Chloride IV Infused Q24H MATTY Infusion Insulin Glargine 15 unit 07/24/23 21:10 07/24/23 22:11 Insulin Glargine,Hum.Rec.Anlog 100 Unit/Ml 10 Ml Vial SUBCUT 15 unit BEDTIME MATTY Administration Discontinued Medications Generic Name Dose Route Start Last Admin Trade Name Freq PRN Reason Stop Dose Admin Morphine Sulfate 15 mg 07/24/23 17:48 07/24/23 17:58 Morphine Sulfate Immed Release 15 Mg Tablet PO 07/24/23 17:49 15 mg ONCE ONE Administration Trazodone HCl 50 mg 07/24/23 21:08 07/24/23 22:11 Trazodone Hcl 50 Mg Tablet PO 07/24/23 21:09 50 mg ONCE ONE Administration Discharge Plan Discharge Clinical Impression: Emphysematous cystitis Abdominal pain Qualifiers: Abdominal location: lower abdomen, unspecified Qualified Code(s): R10.30 - Lower abdominal pain, unspecified Patient Disposition: Admitted As Inpatient
[2023-07-24] MEDS: Morphine Sulfate Immed Release 15 MG TABLET PO (17:58)
--- NOTE | 2023-07-24 18:36 | PC.NURSE ---
pt daughter left phone number/informatin with this RN. Adelita Messer [address] [place] [address]
[2023-07-24 19:23] LABS: Basophils Percent Auto 0.4 % (0-2); Eosinophils Absolute Auto 0.2 X10*3/uL (0.0-0.4); Eosinophils Percent Auto 2.2 % (0-4); Hematocrit 32.4 % (37.0-47.0); Hemoglobin 10.3 g/dl (12.0-16.0); Imm Gran Abs Auto 0.03 X10*3/uL (0.00-0.03); Imm Gran Pct Auto 0.4 % (0.0-0.4); Lymphocytes Absolute Auto 1.3 X10*3/uL (1.2-4.9); Lymphocytes Percent Auto 15.7 % (20-40); MANUAL DIFF FLAG NO; Mean Corpuscular HGB Conc 31.8 g/dl (31.0-35.0); Mean Corpuscular Volume 84.8 fL (80.0-98.0); Mean Platelet Volume 10.6 fL (9.4-12.3); Monocytes Absolute Auto 0.6 X10*3/uL (0.1-1.2); Monocytes Percent Auto 7.5 % (2-11); Neutrophils Absolute Auto 5.9 x10*3/uL (2.0-8.3); Neutrophils Percent Auto 73.8 % (45-73); Platelet Count 159 X10*3/uL (160-400); Red Blood Count 3.82 X10*6/uL (4.20-5.50); Red Cell Distribution Width 13.6 % (11.0-16.0)
[2023-07-24 19:36] LABS: Alanine Aminotransferase 7 U/L (0-31); Albumin Level 3.2 g/dL (3.5-5.0); Alkaline Phosphatase 207 U/L (39-117); Anion Gap 14 (12-20); Aspartate Amino Transferase 9 U/L (5-31); Bilirubin Direct 0.1 mg/dL (0.0-0.5); Bilirubin Total 0.3 mg/dL (0.0-1.0); Blood Urea Nitrogen 16 mg/dL (9-16); Calcium 8.3 mg/dL (8.4-10.2); Carbon Dioxide 28 mmol/L (22-29); Chloride 99 mmol/L (96-108); Estimated Glomerular Filt Rate 24; Glucose Random 328 mg/dL (60-115); Lipase 10 U/L (8-78); Magnesium 1.7 mg/dL (1.6-2.6); Potassium 3.9 mmol/L (3.3-5.1); Sodium 137 mmol/L (135-145); Total Protein 6.5 g/dL (6.5-8.0)
[2023-07-24 20:05] VITALS: BP 160/54; PULSE 69; RESP 18; TEMP 36.7; O2SAT 94
[2023-07-24 20:21] VITALS: O2SAT 95
--- NOTE | 2023-07-24 20:22 | PM.IMHP ---
History of Present Illness Date of Service: 07/24/23 Chief Complaint: Abdominal Pain This is a 68-year-old female with pertinent history of ESRD on HD, congestive heart failure with reduced ejection fraction, insulin-dependent type 2 diabetes mellitus, essential hypertension, mixed hyperlipidemia, chronic opioid use, mood disorder, urinary retention, gastroesophageal reflux disease who presents to the emergency department for evaluation of abdominal pain and urinary hesitancy. Patient states symptoms started 2 days prior to presentation. She has ESRD and dialyzes Monday/Monday/Monday. Does make minimal urine. No fever or chills. No vomiting. Patient underwent a her dialysis session on the day of presentation and reportedly had nausea during dialysis. Does have a history of frequent UTI. No chest discomfort, palpitations, shortness of breath, changes in bowel habits. In the emergency department, imaging with emphysematous cystitis Review of Systems Constitutional: Constitutional: Reports no additional constitutional complaints Cardiovascular: Cardiovascular: Reports no additional cardiovascular complaints Respiratory: Respiratory: Reports no additional respiratory complaints Gastrointestinal: Gastrointestinal: Reports belching and Reports nausea Genitourinary: Genitourinary: Reports urinary hesitancy Musculoskeletal: Musculoskeletal: Reports no additional musculoskeletal complaints [facility] Medical History Dialysis patient, noncompliant Chronic kidney disease Thrombocytopenia CKD (chronic kidney disease) stage 4, GFR 15-29 ml/min End stage renal disease Constipation 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 Normocytic anemia Urinary tract infection due to ESBL Klebsiella Chronic heart failure with preserved ejection fraction (HFpEF) Hypomagnesemia Acute on chronic renal failure Essential hypertension HLD (hyperlipidemia) Non-ST elevated myocardial infarction Diabetes mellitus Congestive heart failure Nonischemic cardiomyopathy Irritable bowel syndrome with diarrhea Gastroparesis GERD (gastroesophageal reflux disease) Family History Father Lung cancer Mother Diabetes HTN (hypertension) Heart disease Sister Diabetes Heart disease Brother Heart disease Son Diabetes Daughter Diabetes Surgical History H/O surgical amputation of finger History of laparoscopic cholecystectomy History of intestinal surgery Hx of eye surgery History of esophagogastroduodenoscopy (EGD) Hx of colonoscopy H/O: hysterectomy Social History Household Members: Other Household Members Other:: SNF Housing: Long Term Do you presently have visiting nurse or other home services: No Unable to assess alcohol history related to: Unknown Alcohol intake: never Patient Tobacco Use Status: Never used Tobacco Second Hand Smoke Exposure: No Advance Directives: Yes Advance Directives on File: Yes Advance Directives Date on File: 01/04/23 service: No Current occupational status: disabled Meds Allergies Allergy/AdvReac Type Severity Reaction Status Date / Time latex [LATEX] Allergy Intermediate ITCHY Verified 05/25/23 09:18 Home Medications Medication Instructions Recorded Confirmed Last Taken Type aspirin 81 mg tablet,delayed 81 mg PO BEDTIME 06/20/21 07/24/23 02/19/23 History release atorvastatin 80 mg tablet 80 mg PO BEDTIME 06/20/21 07/24/23 10/13/22 History clopidogrel 75 mg tablet 75 mg PO DAILY 06/20/21 07/24/23 02/19/23 History trazodone 50 mg tablet 50 mg PO BEDTIME 06/20/21 07/24/23 10/13/22 History insulin glargine 100 unit/mL (3 20 unit subcut DAILY 03/25/22 07/24/23 02/19/23 20:00 History mL) subcutaneous pen (Lantus 20 units Solostar U-100 Insulin) ipratropium 0.5 mg-albuterol 3 mg 3 ml inhalation Q4H PRN Wheezing 05/05/22 07/24/23 Unknown History (2.5 mg base)/3 mL nebulization soln melatonin 3 mg tablet 3 mg PO BEDTIME PRN Insomnia 12/27/22 07/24/23 Unknown History amlodipine 5 mg tablet 5 mg PO DAILY 04/20/23 07/24/23 Unknown History carvedilol 6.25 mg tablet 6.25 mg PO BIDWM 04/20/23 07/24/23 Unknown History magnesium oxide 400 mg (241.3 mg 400 mg PO DAILY 04/20/23 07/24/23 Unknown History magnesium) tablet blood sugar diagnostic (OneTouch #10 ea 05/25/23 Unknown History Ultra Test strips) insulin aspart U-100 100 unit/mL 8 - 12 unit subcut DIRECTED 05/25/23 07/24/23 Unknown History (3 mL) subcutaneous pen (Novolog FlexPen U-100 Insulin aspart) lancets 33 gauge (OneTouch Delica #100 ea 05/25/23 Unknown History Plus Lancet) pen needle, diabetic 32 gauge x #1,200 ea 05/25/23 Unknown History (Pentips) Physical Exam Vital Signs and Narrative: Vital Signs: Last Vital Signs Temp 98.1 F 07/24/23 20:05 Pulse 69 07/24/23 20:05 Resp 18 07/24/23 20:05 BP 160/54 H 07/24/23 20:05 Pulse Ox 94 07/24/23 20:05 O2 Del Method Room Air 07/24/23 20:05 BMI result Body Mass Index 32.3 Elderly female lying in bed in no distress Neck supple, no JVD Regular rate and rhythm, S1-S2 heard Regular breath sounds bilaterally, no wheezing or crackles appreciated Abdomen soft nontender, no guarding, no rigidity, no CVA tenderness Patient is awake, alert and oriented to self, place, time and person ; no focal motor deficit Psych: Normal mood Results Labs 07/24/23 19:19 07/24/23 19:19 Labs: Laboratory Results - last 24 hr 07/24/23 19:19 MCV 84.8 MCH 27.0 MCHC 31.8 RDW 13.6 Plt Count 159 L MPV 10.6 Immature Gran % (Auto) 0.4 Neut % (Auto) 73.8 H Lymph % (Auto) 15.7 L [place] % (Auto) 7.5 Eos % (Auto) 2.2 Baso % (Auto) 0.4 Lymph # (Auto) 1.3 [place] # (Auto) 0.6 Eos # (Auto) 0.2 Baso # (Auto) 0.0 Abs Immat Gran (auto) 0.03 Absolute Neuts (auto) 5.9 Absolute Nucleated RBC 0.000 Nucleated RBC % (auto) 0.0 Anion Gap 14 Estim Creat Clear Calc 21.0 Estimated GFR 24 Random Glucose 328 H Calcium 8.3 L Magnesium 1.7 Total Bilirubin 0.3 Direct Bilirubin 0.1 AST 9 ALT 7 Alkaline Phosphatase 207 H Total Protein 6.5 Albumin 3.2 L Lipase 10 Imaging Radiologist's Impressions: Impressions Abdomen/Pelvis CT 07/24/23 18:55 IMPRESSION: Air in the wall of the bladder suggestive of emphysematous cystitis. Severe atherosclerotic disease. Diverticulosis. Small bilateral pleural effusions. Small pericardial effusion. 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 Fleischner guidelines were followed. Assessment and Plan (1) Emphysematous cystitis: Status: Acute Plan This is a 68-year-old female with pertinent history of ESRD on HD, congestive heart failure with reduced ejection fraction, insulin-dependent type 2 diabetes mellitus, essential hypertension, mixed hyperlipidemia, chronic opioid use, mood disorder, urinary retention, gastroesophageal reflux disease who presents to the emergency department for evaluation of abdominal pain and urinary hesitancy. #. Acute emphysematous cystitis. Will admit patient and initiate empiric IV Rocephin. Noted previous urine cultures. No sepsis. UA and culture pending #.? Congestive heart failure with reduced ejection fraction #.? Essential hypertension -Conintue home antihypertensives #.? History of CVA: on plavix, aspirin and high-intensity statin #.? Insulin-dependent type 2 diabetes mellitus with hyperglycemia:? Reduce basal insulin.? Initiating Accu-Cheks with sliding scale insulin before meals and at bedtime #.? ESRD on hemodialysis: Consulting Nephrology. Patient hemodialysis Monday/Monday/Monday. #. Mood disorder. On trazodone Med rec pending DVT prophylaxis: Heparin Full code Low-salt diet Admit as inpatient and will require two night minimum hospital stay for IV antibiotics Time Spent With Patient Time: Total time managing care of this patient today ____ minutes. Quality Stroke Does the patient have a stroke diagnosis?: No VTE Prior VTE?: No VTE Risk Level:: Medical - moderate - high VTE Device Contraindication: Treatment Not Indicated VTE Drug Contraindication: N/A - Med Ordered
[2023-07-24 20:27] LABS: Lactic Acid 1.8 mmol/L (0.5-2.0)
[2023-07-24 20:34] VITALS: O2SAT 95
[2023-07-24] MEDS: Heparin Sodium,Porcine 5,000 UNIT/ML VIAL 5000 UNIT SUBCUT (20:58)
[2023-07-24] MEDS: cefTRIAXone sodium 1 GM in 0.9 % Sodium Chloride 50 ML IV (20:58)
--- NOTE | 2023-07-24 21:04 | PHA.MEDREC ---
Pharmacy Consult ? Medication Reconciliation Pharmacy has completed the medication reconciliation. Patient and family poor historian about patient meds
[2023-07-24 22:02] LABS: Glucose, Whole Blood 250 mg/dL (60-115)
[2023-07-24] MEDS: traZODone HCL 50 MG TABLET PO (22:11)
[2023-07-24] MEDS: Insulin Glargine,Hum.rec.anlog 100 UNIT/ML 10 ML VIAL 15 UNIT SUBCUT (22:11)
--- NOTE | 2023-07-24 22:53 | PC.NURSE ---
Pt straight cath for urine sample. Pt tolerated well. Pt changed and repositioned. Urine sample collected and sent to lab.
[2023-07-24 22:56] VITALS: BP 171/55; PULSE 75; RESP 23; TEMP 36.7; O2SAT 96
[2023-07-24 22:57] LABS: Appearance Urine Turbid; Color Urine Yellow; Glucose Urine UA >=1000 mg/dL (Negative); Leukocyte Esterase Urine Moderate (2+) (Negative); Nitrite Urine Negative (Negative); PH 6.5 (5.0-9.0); Specific Gravity - Urine 1.025 (1.005-1.025); UMIC TRIGGER UACC YES; Urine Blood Moderate (2+) (Negative); Urine Ketones Negative (Negative); Urine Protein >=1000 (4+) mg/dL (Neg-Trace)
[2023-07-24 23:06] LABS: Bacteria Urine 4+ (None Seen); RBC Urine >20 /HPF (0-2); Squamous Epithelial Cell Urine 0-2 /HPF (0-2); UACC Culture Trigger YES; WBC Urine >50 /HPF (0-5)
--- NOTE | 2023-07-25 00:39 | PC.NURSE ---
Pt appears to be sleeping, with equal and unlabored respirations.
[2023-07-25] MEDS: 0.9 % Sodium Chloride Flush 3 ML SYRINGE IVFLUSH ×2 (04:12→22:06)
[2023-07-25 05:23] LABS: MANUAL DIFF FLAG NO
[2023-07-25 05:25] LABS: Basophils Percent Auto 0.4 % (0-2); Eosinophils Absolute Auto 0.2 X10*3/uL (0.0-0.4); Eosinophils Percent Auto 2.3 % (0-4); Hematocrit 31.7 % (37.0-47.0); Hemoglobin 9.9 g/dl (12.0-16.0); Imm Gran Abs Auto 0.03 X10*3/uL (0.00-0.03); Imm Gran Pct Auto 0.4 % (0.0-0.4); Lymphocytes Absolute Auto 1.6 X10*3/uL (1.2-4.9); Lymphocytes Percent Auto 18.8 % (20-40); Mean Corpuscular HGB Conc 31.2 g/dl (31.0-35.0); Mean Corpuscular Hemoglobin 26.7 pg (27.0-33.0); Mean Corpuscular Volume 85.4 fL (80.0-98.0); Mean Platelet Volume 10.5 fL (9.4-12.3); Monocytes Absolute Auto 0.6 X10*3/uL (0.1-1.2); Monocytes Percent Auto 6.6 % (2-11); Neutrophils Percent Auto 71.5 % (45-73); Platelet Count 169 X10*3/uL (160-400); Red Blood Count 3.71 X10*6/uL (4.20-5.50); Red Cell Distribution Width 13.7 % (11.0-16.0); White Blood Count 8.4 X10*3/uL (4.8-10.8)
[2023-07-25 05:49] LABS: Anion Gap 16 (12-20); Blood Urea Nitrogen 19 mg/dL (9-16); Calcium 8.4 mg/dL (8.4-10.2); Carbon Dioxide 27 mmol/L (22-29); Chloride 98 mmol/L (96-108); Creatinine Clr Calc Pharmacy 18.2; Estimated Glomerular Filt Rate 20; Glucose Random 283 mg/dL (60-115); Potassium 4.3 mmol/L (3.3-5.1); Sodium 137 mmol/L (135-145)
[2023-07-25 07:11] VITALS: BP 159/65; PULSE 65; RESP 12; O2SAT 93
[2023-07-25 07:52] LABS: Glucose, Whole Blood 236 mg/dL (60-115)
--- NOTE | 2023-07-25 08:19 | PC.NURSE ---
assumed care of pt at 0700. pt sleeping peacefully on stretcher. breakfast at bedside but pt too tired to eat david. call peck within pt reach. all pt needs met david.
--- NOTE | 2023-07-25 09:00 | HO.PM.IMPN ---
Subjective Subjective Date of Service: 07/25/23 Interval History: f/u on cystitis, abd pain Pain is better, only has little abdominal pain Physical Exam Vital Signs: Vital Signs: Last Vital Signs Temp 98.1 F 07/24/23 22:56 Pulse 65 07/25/23 07:11 Resp 12 07/25/23 07:11 BP 159/65 H 07/25/23 07:11 Pulse Ox 93 07/25/23 07:11 O2 Del Method Room Air 07/25/23 07:11 BMI result Body Mass Index 32.3 Const: Other: General: AO X 3, no acute distress Resp: CTA bilateral CVS: S1,S2,RRR GI: +BS, NT, no distention Skin: No rash Neuro: motor grossly intact Psych: appropriate affect Objective Data Active Medications Acetaminophen (Acetaminophen 325 Mg Tablet) 650 mg PO Q6H PRN PRN Reason: Pain, Mild (Pain Scale 1-3) Albuterol Sulfate (Albuterol Sulfate 90 Mcg 8 Gm Inhaler) 1 puff INHALE QID PRN PRN Reason: shortness of breath or wheezing Albuterol/Ipratropium (Albuterol/Iprat 2.5/0.5mg 3 Ml Ampul.Neb) 3 ml INHALE Q4H PRN PRN Reason: Wheezing Amlodipine Besylate (Amlodipine Besylate 5 Mg Tablet) 5 mg PO DAILY [facility]; Protocol Aspirin (Aspirin Enteric Coated 81 Mg Tablet.Dr) 81 mg PO BEDTIME MATTY Atorvastatin Calcium (Atorvastatin Calcium 80 Mg Tablet) 80 mg PO BEDTIME [facility] Carvedilol (Carvedilol 6.25 Mg Tablet) 6.25 mg PO BIDWM [facility]ATTY; Protocol Clopidogrel Bisulfate (Clopidogrel Bisulfate 75 Mg Tablet) 75 mg PO DAILY [facility] Dextrose (Dextrose 50 % 25 Gm/50 Ml Syringe) 25 gm IVPUSH Q15M PRN; Protocol PRN Reason: per Hypoglycemia Standing Ord. Glucose (Glucose Gel 15 Gm Gel..Gram.) 15 gm PO Q15M PRN; Protocol PRN Reason: per Hypoglycemia Standing Ord. Heparin Sodium (Porcine) (Heparin Sodium,Porcine 5,000 Unit/Ml Vial) 5,000 unit SUBCUT Q12H [facility] Last Admin: 07/24/23 20:58 Dose: 5,000 unit Documented By: INDERJIT Ceftriaxone Sodium 1 gm/ (Sodium Chloride) 50 mls @ 100 mls/hr IV Q24H [facility] Last Infusion: 07/24/23 21:30 Dose: Infused Documented By: INDERJIT Insulin Glargine (Insulin Glargine,Hum.Rec.Anlog 100 Unit/Ml 10 Ml Vial) 15 unit SUBCUT BEDTIME [facility] Last Admin: 07/24/23 22:11 Dose: 15 unit Documented By: INDERJIT Insulin Glargine (Insulin Glargine,Hum.Rec.Anlog 100 Unit/Ml 10 Ml Vial) 20 unit SUBCUT DAILY [facility] Insulin Human Lispro (Insulin Lispro 100 Unit/Ml 3 Ml Vial) 0 unit SUBCUT QIDACHS [facility]; Protocol Magnesium Oxide (Magnesium Oxide 400 Mg Tablet) 400 mg PO DAILY [facility] Melatonin (Melatonin 3 Mg Tablet) 6 mg PO BEDTIME PRN PRN Reason: Insomnia Melatonin (Melatonin 3 Mg Tablet) 3 mg PO BEDTIME PRN PRN Reason: Insomnia Ondansetron HCl (Ondansetron Hcl 4 Mg/2 Ml Vial) 4 mg IVPUSH Q8H PRN PRN Reason: Nausea and Vomiting Sodium Chloride (0.9 % Sodium Chloride Flush 3 Ml Syringe) 3 ml IVFLUSH QSHIFT [facility] Last Admin: 07/25/23 07:04 Dose: Not Given Documented By: DOYLE Non-Admin Reason: Med Not Available Trazodone HCl (Trazodone Hcl 50 Mg Tablet) 50 mg PO BEDTIME [facility] Labs 07/25/23 05:11 07/25/23 05:11 Labs: Laboratory Results - last 24 hr 07/24/23 07/24/23 07/24/23 19:19 20:09 21:56 MCV 84.8 MCH 27.0 MCHC 31.8 RDW 13.6 Plt Count 159 L MPV 10.6 Immature Gran % (Auto) 0.4 Neut % (Auto) 73.8 H Lymph % (Auto) 15.7 L [place] % (Auto) 7.5 Eos % (Auto) 2.2 Baso % (Auto) 0.4 Lymph # (Auto) 1.3 [place] # (Auto) 0.6 Eos # (Auto) 0.2 Baso # (Auto) 0.0 Abs Immat Gran (auto) 0.03 Absolute Neuts (auto) 5.9 Absolute Nucleated RBC 0.000 Nucleated RBC % (auto) 0.0 Anion Gap 14 Estim Creat Clear Calc 21.0 Estimated GFR 24 POC Glucose 250 H Random Glucose 328 H Lactic Acid 1.8 Calcium 8.3 L Magnesium 1.7 Total Bilirubin 0.3 Direct Bilirubin 0.1 AST 9 ALT 7 Alkaline Phosphatase 207 H Total Protein 6.5 Albumin 3.2 L Lipase 10 Urine Color Urine Appearance Urine pH Ur Specific Roby Urine Protein Urine Glucose (UA) Urine Ketones Urine Blood Urine Nitrite Ur Leukocyte Esterase Urine RBC Urine WBC Ur Squamous Epith Cells Urine Bacteria Hyaline Casts 07/24/23 07/25/23 07/25/23 22:51 05:11 07:48 MCV 85.4 MCH 26.7 L MCHC 31.2 RDW 13.7 Plt Count 169 MPV 10.5 Immature Gran % (Auto) 0.4 Neut % (Auto) 71.5 Lymph % (Auto) 18.8 L [place] % (Auto) 6.6 Eos % (Auto) 2.3 Baso % (Auto) 0.4 Lymph # (Auto) 1.6 [place] # (Auto) 0.6 Eos # (Auto) 0.2 Baso # (Auto) 0.0 Abs Immat Gran (auto) 0.03 Absolute Neuts (auto) 6.0 Absolute Nucleated RBC 0.000 Nucleated RBC % (auto) 0.0 Anion Gap 16 Estim Creat Clear Calc 18.2 Estimated GFR 20 POC Glucose 236 H Random Glucose 283 H Lactic Acid Calcium 8.4 Magnesium Total Bilirubin Direct Bilirubin AST ALT Alkaline Phosphatase Total Protein Albumin Lipase Urine Color Yellow Urine Appearance Turbid Urine pH 6.5 Ur Specific Roby 1.025 Urine Protein >=1000 (4+) H Urine Glucose (UA) >=1000 H Urine Ketones Negative Urine Blood Moderate (2+) H Urine Nitrite Negative Ur Leukocyte Esterase Moderate (2+) H Urine RBC >20 H Urine WBC >50 H Ur Squamous Epith Cells 0-2 Urine Bacteria 4+ Hyaline Casts 3-5 Assessment and Plan (1) Abdominal pain: Status: Acute (2) End stage renal disease: Status: Acute (3) Emphysematous cystitis: Status: Acute Plan 68-year-old female with pertinent history of ESRD on HD, congestive heart failure with reduced ejection fraction, insulin-dependent type 2 diabetes mellitus, essential hypertension, mixed hyperlipidemia, chronic opioid use, mood disorder, urinary retention, gastroesophageal reflux disease who presents to the emergency department for evaluation of abdominal pain and urinary hesitancy. Acute emphysematous cystitis. No sepsis, culture pending, abdominal pain is better, continue Abx and possibly switch to po for dc Congestive heart failure with reduced ejection fraction Essential hypertension -Conintue home antihypertensives ? History of CVA: on plavix, aspirin and high-intensity statin ? Insulin-dependent type 2 diabetes mellitus with hyperglycemia:? Reduce basal insulin.? Initiating Accu-Cheks with sliding scale insulin before meals and at bedtime ? ESRD on hemodialysis: Consulting Nephrology. Patient hemodialysis Monday/Monday/Monday. Mood disorder. On trazodone DVT prophylaxis: Heparin Full code Low-salt diet need for inpatient: UTI with abdominal requiring IV Abx Time Spent With Patient Time: Total time managing care of this patient today ____ minutes. Quality Stroke Does the patient have a stroke diagnosis?: No VTE Prior VTE?: No VTE Risk Level:: Medical - moderate - high VTE Device Contraindication: Treatment Not Indicated VTE Drug Contraindication: N/A - Med Ordered
[2023-07-25] MEDS: Insulin Lispro 100 UNIT/ML 3 ML VIAL SUBCUT ×3 (09:01→21:12)
[2023-07-25] MEDS: Insulin Glargine,Hum.rec.anlog 100 UNIT/ML 10 ML VIAL 20 UNIT SUBCUT (09:02)
[2023-07-25] MEDS: Heparin Sodium,Porcine 5,000 UNIT/ML VIAL 5000 UNIT SUBCUT ×2 (09:03→21:00)
[2023-07-25] MEDS: Magnesium Oxide 400 MG TABLET PO (09:06)
[2023-07-25] MEDS: Clopidogrel Bisulfate 75 MG TABLET PO (09:06)
[2023-07-25] MEDS: carvediloL 6.25 MG TABLET PO ×2 (09:07→19:22)
[2023-07-25] MEDS: amLODIPine Besylate 5 MG TABLET PO (09:08)
[2023-07-25 10:00] VITALS: BP 137/45; PULSE 64; RESP 16; O2SAT 92
--- NOTE | 2023-07-25 10:46 | MHC.CM.PN ---
CM MET WITH PT WITH THE ASSISTANCE OF A BASKET PERSON PT REPORTS SHE LIVES WITH HER DAUGHTER AND GRANDSON SHE SAYS SHE HAD NO HOME SERVICES [employer] PT GOES TO [facility] FOR HD -- SHE USES [facility] TRANSPORTATION HCP ON FILE PCP: DENYS BERGER IMM DELIVERED PT REPORTS SHE DOES NOT KNOW WHAT IS WRONG WITH HER AND DOES NOT FEEL SHE IS GETTING A STRAIGHT ANSWER SHE REPORTS SEVERAL SYMPTOMS AND SAYS SHE DOES NOT FEEL ANYONE IS LISTENING TO HER CM DID REQUEST AN EXPERIENCE OFFICER MEET WITH PT TO HEAR ALL CONCERNS DCP: HOME WITH RESUMPTION OF HD SERVICES PT USUALLY USES BLS TRANSPORT AT [place]
[2023-07-25] MEDS: ondansetron HCL 4 MG/2 ML VIAL IVPUSH ×2 (11:27→20:01)
[2023-07-25 11:32] VITALS: BP 160/70; PULSE 71; RESP 16
[2023-07-25 11:36] LABS: Glucose, Whole Blood 277 mg/dL (60-115)
--- NOTE | 2023-07-25 11:53 | PC.NURSE ---
pt reported to be nauseous, actively dry heaving while this RN in room. provided with javi-bag. pt medicated with zofran per nov. resting quietly on stretcher. nausea has since subsided.
[2023-07-25 17:42] VITALS: BP 156/59; PULSE 60; RESP 16; TEMP 36.6; O2SAT 92
[2023-07-25 17:48] LABS: Glucose, Whole Blood 132 mg/dL (60-115)
[2023-07-25] MEDS: Acetaminophen 325 MG TABLET 650 MG PO (20:01)
[2023-07-25] MEDS: Insulin Glargine,Hum.rec.anlog 100 UNIT/ML 10 ML VIAL 15 UNIT SUBCUT (21:00)
[2023-07-25] MEDS: cefTRIAXone sodium 1 GM in 0.9 % Sodium Chloride 50 ML IV (21:01)
[2023-07-25] MEDS: Atorvastatin Calcium 80 MG TABLET PO (21:01)
[2023-07-25] MEDS: Aspirin Enteric Coated 81 MG TABLET.DR PO (21:01)
[2023-07-25] MEDS: traZODone HCL 50 MG TABLET PO (21:01)
[2023-07-25 21:07] LABS: Glucose, Whole Blood 167 mg/dL (60-115)
[2023-07-25 21:53] VITALS: BP 148/58; PULSE 69; RESP 16; TEMP 35.5; O2SAT 94
[2023-07-25 21:54] VITALS: BMI 32.0
--- NOTE | 2023-07-25 22:18 | PM.EVENT ---
Event Note Date of Service: 07/25/23 Event Note: 68-year-old female with pertinent history of ESRD on HD, congestive heart failure with reduced ejection fraction, insulin-dependent type 2 diabetes mellitus, essential hypertension, mixed hyperlipidemia, chronic opioid use, mood disorder, urinary retention, gastroesophageal reflux disease who presents to the emergency department for evaluation of abdominal pain and urinary hesitancy. ESRD on HD Acute emphysematous cystitis. No sepsis Congestive heart failure with reduced ejection fraction Essential hypertension -Patient hemodialysis Monday/Monday/Monday. - HD arranged for AM Thx Dr. Kaur Time Spent With Patient Time: Total time managing care of this patient today ____ minutes.
[2023-07-26 03:29] VITALS: BP 145/63; PULSE 66; RESP 16; TEMP 36.1; O2SAT 96
[2023-07-26] MEDS: ondansetron HCL 4 MG/2 ML VIAL IVPUSH ×2 (04:00→17:14)
--- NOTE | 2023-07-26 08:46 | P.PNIM_ITS ---
Subjective Subjective Date of Service: 07/26/23 Interval History: f/u on cystitis, abd pain Seen in dialysis, pain is better, but has nausea Physical Exam 2 Vital Signs: Vital Signs: Last Vital Signs Temp 96.9 F 07/26/23 03:29 Pulse 66 07/26/23 03:29 Resp 16 07/26/23 03:29 BP 145/63 H 07/26/23 03:29 Pulse Ox 96 07/26/23 03:29 O2 Del Method Room Air 07/26/23 03:29 BMI result Body Mass Index 32.0 Const: Other: General: AO X 3, no acute distress Resp: CTA bilateral CVS: S1,S2,RRR GI: +BS, NT, no distention Skin: No rash Neuro: motor grossly intact Psych: appropriate affect Objective Data Active Medications Acetaminophen (Acetaminophen 325 Mg Tablet) 650 mg PO Q6H PRN PRN Reason: Pain, Mild (Pain Scale 1-3) Last Admin: 07/25/23 20:01 Dose: 650 mg Documented By: NOAM Albuterol Sulfate (Albuterol Sulfate 90 Mcg 8 Gm Inhaler) 1 puff INHALE QID PRN PRN Reason: shortness of breath or wheezing Albuterol/Ipratropium (Albuterol/Iprat 2.5/0.5mg 3 Ml Ampul.Neb) 3 ml INHALE Q4H PRN PRN Reason: Wheezing Amlodipine Besylate (Amlodipine Besylate 5 Mg Tablet) 5 mg PO DAILY [facility]; Protocol Last Admin: 07/25/23 09:08 Dose: 5 mg Documented By: DOYLE Aspirin (Aspirin Enteric Coated 81 Mg Tablet.) 81 mg PO BEDTIME [facility] Last Admin: 07/25/23 21:01 Dose: 81 mg Documented By: INDERJIT Atorvastatin Calcium (Atorvastatin Calcium 80 Mg Tablet) 80 mg PO BEDTIME [facility] Last Admin: 07/25/23 21:01 Dose: 80 mg Documented By: INDERJIT Carvedilol (Carvedilol 6.25 Mg Tablet) 6.25 mg PO BIDWM [facility]; Protocol Last Admin: 07/25/23 19:22 Dose: 6.25 mg Documented By: NOAM Clopidogrel Bisulfate (Clopidogrel Bisulfate 75 Mg Tablet) 75 mg PO DAILY [facility] Last Admin: 07/25/23 09:06 Dose: 75 mg Documented By: DOYLE Dextrose (Dextrose 50 % 25 Gm/50 Ml Syringe) 25 gm IVPUSH Q15M PRN; Protocol PRN Reason: per Hypoglycemia Standing Ord. Glucose (Glucose Gel 15 Gm Gel..Gram.) 15 gm PO Q15M PRN; Protocol PRN Reason: per Hypoglycemia Standing Ord. Heparin Sodium (Porcine) (Heparin Sodium,Porcine 5,000 Unit/Ml Vial) 5,000 unit SUBCUT Q12H [facility] Last Admin: 07/25/23 21:00 Dose: 5,000 unit Documented By: INDERJIT Ceftriaxone Sodium 1 gm/ (Sodium Chloride) 50 mls @ 100 mls/hr IV Q24H [facility] Last Infusion: 07/25/23 21:35 Dose: Infused Documented By: COURT Insulin Glargine (Insulin Glargine,Hum.Rec.Anlog 100 Unit/Ml 10 Ml Vial) 15 unit SUBCUT BEDTIME [facility] Last Admin: 07/25/23 21:00 Dose: 15 unit Documented By: INDERJIT Insulin Glargine (Insulin Glargine,Hum.Rec.Anlog 100 Unit/Ml 10 Ml Vial) 20 unit SUBCUT DAILY [facility] Last Admin: 07/25/23 09:02 Dose: 20 unit Documented By: DOYLE Insulin Human Lispro (Insulin Lispro 100 Unit/Ml 3 Ml Vial) 0 unit SUBCUT QIDACHS [facility]; Protocol Last Admin: 07/26/23 07:43 Dose: Not Given Documented By: MELINDA Non-Admin Reason: Off unit: Dialysis Magnesium Oxide (Magnesium Oxide 400 Mg Tablet) 400 mg PO DAILY [facility] Last Admin: 07/25/23 09:06 Dose: 400 mg Documented By: DOYLE Melatonin (Melatonin 3 Mg Tablet) 6 mg PO BEDTIME PRN PRN Reason: Insomnia Melatonin (Melatonin 3 Mg Tablet) 3 mg PO BEDTIME PRN PRN Reason: Insomnia Ondansetron HCl (Ondansetron Hcl 4 Mg/2 Ml Vial) 4 mg IVPUSH Q8H PRN PRN Reason: Nausea and Vomiting Last Admin: 07/26/23 04:00 Dose: 4 mg Documented By: COURT Sodium Chloride (0.9 % Sodium Chloride Flush 3 Ml Syringe) 3 ml IVFLUSH QSHIFT [facility] Last Admin: 10/24/23 22:06 Dose: 3 ml Documented By: FLORQC Trazodone HCl (Trazodone Hcl 50 Mg Tablet) 50 mg PO BEDTIME [facility] Last Admin: 07/25/23 21:01 Dose: 50 mg Documented By: INDERJIT Labs 07/25/23 05:11 07/25/23 05:11 Labs: Laboratory Results - last 24 hr 07/25/23 07/25/23 07/25/23 11:26 17:41 21:02 POC Glucose 277 H 132 H 167 H Microbiology Microbiology Results: Microbiology 07/24/23 20:15 Blood Culture - Preliminary Blood - Venous No growth after 24 hours. 07/24/23 20:09 Blood Culture - Preliminary Blood - Venous No growth after 24 hours. 07/24/23 Unknown Urine Culture - Preliminary Urine clean catch - Urine chery top Culture in progress. Assessment and Plan (1) Abdominal pain: Status: Acute (2) End stage renal disease: Status: Acute (3) Emphysematous cystitis: Status: Acute Plan 68-year-old female with pertinent history of ESRD on HD, congestive heart failure with reduced ejection fraction, insulin-dependent type 2 diabetes mellitus, essential hypertension, mixed hyperlipidemia, chronic opioid use, mood disorder, urinary retention, gastroesophageal reflux disease who presents to the emergency department for evaluation of abdominal pain and urinary hesitancy. Acute emphysematous cystitis. No sepsis, culture pending, abdominal pain is resolved, continue Abx and possibly switch to po for dc later tody Congestive heart failure with reduced ejection fraction Essential hypertension -Conintue home antihypertensives ? History of CVA: on plavix, aspirin and high-intensity statin ? Insulin-dependent type 2 diabetes mellitus with hyperglycemia:? Reduce basal insulin.? Initiating Accu-Cheks with sliding scale insulin before meals and at bedtime ? ESRD on hemodialysis: [facility] Neph[facility]. Patient hemodialysis Monday/Monday/Monday. Mood disorder. On trazodone DVT prophylaxis: Heparin Full code Low-salt diet need for inpatient: UTI with abdominal requiring IV Abx Time Spent With Patient Time: Total time managing care of this patient today ____ minutes. Quality Stroke Does the patient have a stroke diagnosis?: No VTE Prior VTE?: No VTE Risk Level:: Medical - moderate - high VTE Device Contraindication: Treatment Not Indicated VTE Drug Contraindication: N/A - Med Ordered
--- NOTE | 2023-07-26 09:28 | MHC.CLN ---
NUTRITION PATIENT WITH ESRD, DIABETES, AND RECEIVES HEMODIALYSIS. ADDING DIABETIC TO DIET ORDER. DIET=DIABETIC 1800 KCALS, 2 GRAM SODIUM.
[2023-07-26 11:16] LABS: Glucose, Whole Blood 126 mg/dL (60-115)
--- NOTE | 2023-07-26 14:27 | MHC.CM.PN ---
Per MD rounds no discharge today. Patient requires IV ABX. DP home resume HD MWF [facility]. Patient will transport via BLS.
[2023-07-26 15:08] VITALS: BP 138/56; PULSE 71; RESP 19; TEMP 36.2; O2SAT 96
[2023-07-26 16:06] LABS: Glucose, Whole Blood 135 mg/dL (60-115)
[2023-07-26] MEDS: 0.9 % Sodium Chloride Flush 3 ML SYRINGE IVFLUSH ×2 (17:16→21:13)
[2023-07-26 19:13] VITALS: BP 152/60; PULSE 73; RESP 19; TEMP 36.3; O2SAT 98
[2023-07-26 20:47] LABS: Glucose, Whole Blood 169 mg/dL (60-115)
[2023-07-26] MEDS: Atorvastatin Calcium 80 MG TABLET PO (21:11)
[2023-07-26] MEDS: cefTRIAXone sodium 1 GM in 0.9 % Sodium Chloride 50 ML IV (21:11)
[2023-07-26] MEDS: Aspirin Enteric Coated 81 MG TABLET.DR PO (21:11)
[2023-07-26] MEDS: traZODone HCL 50 MG TABLET PO (21:12)
[2023-07-26] MEDS: Heparin Sodium,Porcine 5,000 UNIT/ML VIAL 5000 UNIT SUBCUT (21:12)
[2023-07-26] MEDS: Insulin Glargine,Hum.rec.anlog 100 UNIT/ML 10 ML VIAL 15 UNIT SUBCUT (21:12)
--- NOTE | 2023-07-26 21:23 | P.PNNP_ITS ---
Subjective Subjective Date of Service: 07/26/23 Interval history: Seen in dialysis, pain is better, but has nausea Physical Exam 2 Vital Signs: Vital Signs: Last Vital Signs Temp 97.4 F 07/26/23 19:13 Pulse 73 07/26/23 19:13 Resp 19 07/26/23 19:13 BP 152/60 H 07/26/23 19:13 Pulse Ox 98 07/26/23 19:13 O2 Del Method Room Air 07/26/23 19:13 BMI result Body Mass Index 32.0 Const: Other: General: AO X 3, no acute distress Resp: CTA bilateral CVS: S1,S2,RRR GI: +BS, NT, no distention Skin: No rash Neuro: motor grossly intact Psych: appropriate affect Objective Data Labs 07/25/23 05:11 07/25/23 05:11 Labs: Laboratory Results - last 24 hr 07/26/23 07/26/23 07/26/23 11:09 15:53 20:29 POC Glucose 126 H 135 H 169 H Microbiology Microbiology Results: Microbiology 07/24/23 Unknown Urine clean catch - Urine chery top Urine Culture - Preliminary Gram negative eva 07/24/23 20:15 Blood - Venous Blood Culture - Preliminary No growth after 24 hours. 07/24/23 20:09 Blood - Venous Blood Culture - Preliminary No growth after 24 hours. Procedures Date of Service Date of Service: 07/26/23 Assessment & Plan Assessment and plan (1) End stage renal disease: Status: Acute Assessment and Plan: 68-year-old female with pertinent history of ESRD on HD, congestive heart failure with reduced ejection fraction, insulin-dependent type 2 diabetes mellitus, essential hypertension, mixed hyperlipidemia, chronic opioid use, mood disorder, urinary retention, gastroesophageal reflux disease who presents to the emergency department for evaluation of abdominal pain and urinary hesitancy. ESRD on HD Acute emphysematous cystitis. No sepsis Congestive heart failure with reduced ejection fraction Essential hypertension - Continue Hd - Vol removal as tolerated -Patient hemodialysis Monday/Monday/Monday. Thx Dr. Kaur Time Spent With Patient Time: Total time managing care of this patient today ____ minutes. Progress Note: Quality Stroke Does the patient have a stroke diagnosis?: No
[2023-07-27 04:00] VITALS: BP 151/66; PULSE 73; RESP 16; TEMP 36; O2SAT 97
[2023-07-27 06:59] VITALS: BP 135/98; PULSE 70; RESP 18; TEMP 36.6; O2SAT 97
[2023-07-27 07:01] LABS: Glucose, Whole Blood 102 mg/dL (60-115)
--- NOTE | 2023-07-27 08:15 | PM.DS ---
DS: Providers Provider Date of Service: 07/28/23 Date of admission: 07/24/23 20:21 Primary care physician: Alexys Avila MD Consults: 07/24/23 20:55 Consult to Nephrology Routine Consulting Provider: Jian Chao Reason for consultation: ESRD DS: Diagnosis Discharge Diagnosis (1) End stage renal disease: Status: Acute DS: Summary Hospital Course Hospital Course: Admission HPI Chief Complaint: Abdominal Pain This is a 68-year-old female with pertinent history of ESRD on HD, congestive heart failure with reduced ejection fraction, insulin-dependent type 2 diabetes mellitus, essential hypertension, mixed hyperlipidemia, chronic opioid use, mood disorder, urinary retention, gastroesophageal reflux disease who presents to the emergency department for evaluation of abdominal pain and urinary hesitancy. Patient states symptoms started 2 days prior to presentation. She has ESRD and dialyzes Monday/Monday/Monday. Does make minimal urine. No fever or chills. No vomiting. Patient underwent a her dialysis session on the day of presentation and reportedly had nausea during dialysis. Does have a history of frequent UTI. No chest discomfort, palpitations, shortness of breath, changes in bowel habits. In the emergency department, imaging with emphysematous cystitis Hospital course: The patient initially complained of abdominal pain. Further evaluation indicated a urinary tract infection (UTI), and a CT scan of the abdomen and pelvis revealed emphysematous cystitis. Treatment was initiated with intravenous ceftriaxone, and subsequent blood cultures returned negative results. The urine culture, however, detected the presence of E. coli, which was found to be sensitive to ceftriaxone. Upon discharge, the patient's treatment will be transitioned to cefuroxime to complete a 10-day course. Fortunately, the patient's abdominal pain has since subsided. Final diagnoses: Emphysematous cystitis abdominal pain CKD Dysphagia Time Spent with Patient Time attestation: Total time managing care of this patient today ____ minutes. Discharge coordination time: Greater than 30 minutes Quality: Safe Use of Opioids Does Pt have an Active Cancer Diagnosis on the Problem List?: No Quality: Stroke Does the patient have a stroke diagnosis?: No Physical Exam Vital Signs: Vital Signs: Last Vital Signs Temp 98 F 07/27/23 06:59 Pulse 70 07/27/23 06:59 Resp 18 07/27/23 06:59 BP 135/98 H 07/27/23 06:59 Pulse Ox 97 07/27/23 06:59 O2 Del Method Room Air 07/27/23 06:59 BMI result Body Mass Index 32.0 DS: Data Data Completed and Pending Labs on day of discharge: Laboratory Results - last 24 hr 07/26/23 07/26/23 07/26/23 11:09 15:53 20:29 POC Glucose 126 H 135 H 169 H 07/27/23 06:58 POC Glucose 102 Preliminary micro results at discharge 07/24/23 20:15 Blood Culture - Preliminary Blood - Venous No growth after 48 hours. 07/24/23 20:09 Blood Culture - Preliminary Blood - Venous No growth after 48 hours. Discharge Plan Discharge Anticipated Discharge Date/Time: 07/28/23 12:21 Patient Disposition: Home, Self-Care Discharge Diagnosis: Emphysemtous cystitis Referrals: Alexys Avila MD [Primary Care Provider] - 1 Week Discharge Medications: New cefuroxime axetil 250 mg tablet 250 mg PO BID Qty: 10 0RF pantoprazole [Protonix] [address] for susp in packet 40 mg PO DAILY Qty: 30 0RF Continued atorvastatin 80 mg tablet 80 mg PO BEDTIME trazodone 50 mg tablet 50 mg PO BEDTIME clopidogrel 75 mg tablet 75 mg PO DAILY aspirin 81 mg tablet,delayed release (DR/EC) 81 mg PO BEDTIME insulin glargine [Lantus Solostar U-100 Insulin] 100 unit/mL (3 mL) insulin pen 20 unit subcut DAILY ipratropium-albuterol 0.5 mg-3 mg(2.5 mg base)/3 mL Solution For Nebulization 3 ml INHALATION Q4H PRN (Reason: Wheezing) albuterol sulfate 90 mcg/actuation HFA aerosol inhaler 1 inh inhalation QID PRN (Reason: shortness of breath or wheezing) Qty: 8.5 0RF amlodipine 5 mg tablet 5 mg PO DAILY magnesium oxide 400 mg (241.3 mg magnesium) tablet 400 mg PO DAILY carvedilol 6.25 mg tablet 6.25 mg PO BIDWM Rx Instructions: must administer with a meal/food - Take one tablet twice daily melatonin 3 mg Tablet 3 mg PO BEDTIME PRN (Reason: Insomnia) (DME) lancets [OneTouch Delica Plus Lancet] 33 gauge misc See Rx Instructions .ROUTE TID Qty: 100 Rx Instructions: As directed (DME) pen needle, diabetic [Pentips] 32 gauge x 5/32 needle See Rx Instructions .ROUTE DIRECTED Qty: 1200 Rx Instructions: As directed (DME) OneTouch Ultra Test Strip See Rx Instructions .ROUTE TID Qty: 10 Rx Instructions: As directed insulin aspart U-100 [Novolog FlexPen U-100 Insulin] 100 unit/mL (3 mL) insulin pen 8 - 12 unit subcut DIRECTED Rx Instructions: SLIDING SCALE Discharge Orders: Discharge Order (Routine); Ordered 07/28/23 Ordered By: Ori Starkey Diet: Advance to usual diet Activity on Discharge: As tolerated Stand Alone Forms: Patient Portal Discharge page Care Plan Goals: recovery from cystitis Health Concerns: cystitis, esrd Plan of Treatment: take Cefuroxime as directed and follow up with your Doctor in a week Follow up with Dialysis as usual Assessment: as above Discharge Date/Time: 07/28/23 18:05
[2023-07-27] MEDS: Heparin Sodium,Porcine 5,000 UNIT/ML VIAL 5000 UNIT SUBCUT ×2 (09:02→20:03)
[2023-07-27] MEDS: carvediloL 6.25 MG TABLET PO ×2 (09:02→17:46)
[2023-07-27] MEDS: Clopidogrel Bisulfate 75 MG TABLET PO (09:02)
[2023-07-27] MEDS: Magnesium Oxide 400 MG TABLET PO (09:02)
[2023-07-27] MEDS: amLODIPine Besylate 5 MG TABLET PO (09:02)
[2023-07-27] MEDS: Insulin Glargine,Hum.rec.anlog 100 UNIT/ML 10 ML VIAL 20 UNIT SUBCUT (09:03)
[2023-07-27] MEDS: 0.9 % Sodium Chloride Flush 3 ML SYRINGE IVFLUSH ×3 (09:04→23:25)
[2023-07-27 11:01] LABS: Glucose, Whole Blood 159 mg/dL (60-115)
[2023-07-27] MEDS: Insulin Lispro 100 UNIT/ML 3 ML VIAL SUBCUT ×3 (11:40→20:03)
[2023-07-27] MEDS: ondansetron HCL 4 MG/2 ML VIAL IVPUSH ×2 (11:40→21:49)
[2023-07-27 15:56] VITALS: BP 131/86; PULSE 72; RESP 18; TEMP 36.1; O2SAT 94
[2023-07-27 16:12] LABS: Glucose, Whole Blood 154 mg/dL (60-115)
[2023-07-27] MEDS: Omeprazole 20 MG CAPSULE.DR PO (17:46)
[2023-07-27 19:39] LABS: Glucose, Whole Blood 162 mg/dL (60-115)
[2023-07-27 20:00] VITALS: BP 129/79; PULSE 80; RESP 18; TEMP 36.7; O2SAT 95
[2023-07-27] MEDS: cefTRIAXone sodium 1 GM in 0.9 % Sodium Chloride 50 ML IV (20:02)
[2023-07-27] MEDS: Aspirin Enteric Coated 81 MG TABLET.DR PO (20:03)
[2023-07-27] MEDS: Insulin Glargine,Hum.rec.anlog 100 UNIT/ML 10 ML VIAL 15 UNIT SUBCUT (20:03)
[2023-07-27] MEDS: traZODone HCL 50 MG TABLET PO (20:04)
[2023-07-27] MEDS: Atorvastatin Calcium 80 MG TABLET PO (20:04)
--- NOTE | 2023-07-27 22:15 | PM.GICN ---
History of Present Illness Data of Consult Service Date: 07/27/23 Requesting physician: Ori Farooq Primary Care Provider: Alexys Avila MD HPI Reason for consult: regurgitation, nausea, pain 68-year-old female with history of ESRD on HD, congestive heart failure with reduced ejection fraction, insulin-dependent type 2 diabetes mellitus, essential hypertension, mixed hyperlipidemia, chronic opioid use, mood disorder, urinary retention, gastroesophageal reflux disease who I am seeing for assessment for epigastric pain, nausea and regurgitation Patient had Ct scan on admission with emphysematous cystitis and urine culture was pos so she was treated with ABx, however she continued to c/o nausea, regurgitation and moderate severe epigastric pain worse wth food for last 3 weeks. She also noted constipation with no stools for 3 d. She denies melena, rectal bleeding, fever, cough or sputum. She is unsure of taking PPI but does admit to diffculty swallowing with food getting stuck. Last EGD for similar complaints was 01/2022 w/ erosive gastritis, hiatal hernia, esophagitis and lax LES noted. balloon dilation was done and she think it helped at the time. She remains on aspirin. Review of Systems Review of Systems: Constitutional : + Weight loss, No Fever, No Chills ENT/Mouth : No sore throat, No Rhinorrhea Eyes: No Swelling, No Redness Cardiovascular : No Chest Pain, No SOB, No Edema Respiratory : No Cough, No Sputum, No Wheezing Gastrointestinal : see HPI Genitourinary : NO Dysuria, No Urinary Frequency, No Hematuria, No Urgency Musculoskeletal : No joint pain, No Myalgias, No Joint Swelling Skin : No Skin Lesions, No rash Neuro : No Weakness, No Numbness, No Dizziness, No Headache Psych : No Anxiety/Panic, No Depression Heme/Lymph: No Bruising, No Lymphadenopathy Endocrine : No Polyuria, No Polydipsia All other systems reviewed and are negative. 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 Normocytic anemia Urinary tract infection due to ESBL Klebsiella Chronic heart failure with preserved ejection fraction (HFpEF) Hypomagnesemia Acute on chronic renal failure Essential hypertension HLD (hyperlipidemia) Non-ST elevated myocardial infarction Diabetes mellitus Congestive heart failure Nonischemic cardiomyopathy Irritable bowel syndrome with diarrhea Gastroparesis GERD (gastroesophageal reflux disease) Family History Family History Father Lung cancer Mother Diabetes HTN (hypertension) Heart disease Sister Diabetes Heart disease Brother Heart disease Son Diabetes Daughter Diabetes Surgical History Surgical History H/O surgical amputation of finger History of laparoscopic cholecystectomy History of intestinal surgery Hx of eye surgery History of esophagogastroduodenoscopy (EGD) Hx of colonoscopy H/O: hysterectomy Social History Social History Household Members: Family Household Members Other:: SNF Housing: House Do you presently have visiting nurse or other home services: No Unable to assess alcohol history related to: Unknown Alcohol intake: never Patient Tobacco Use Status: Never used Tobacco Second Hand Smoke Exposure: No Advance Directives Date on File: 01/04/23 service: No Current occupational status: disabled Meds Allergies Allergy/AdvReac Type Severity Reaction Status Date / Time latex [LATEX] Allergy Intermediate ITCHY Verified 05/25/23 09:18 Active Medications: Current Medications Acetaminophen (Acetaminophen 325 Mg Tablet) 650 mg PO Q6H PRN PRN Reason: Pain, Mild (Pain Scale 1-3) Last Admin: 07/25/23 20:01 Dose: 650 mg Albuterol Sulfate (Albuterol Sulfate 90 Mcg 8 Gm Inhaler) 1 puff INHALE QID PRN PRN Reason: shortness of breath or wheezing Albuterol/Ipratropium (Albuterol/Iprat 2.5/0.5mg 3 Ml Ampul.Neb) 3 ml INHALE Q4H PRN PRN Reason: Wheezing Amlodipine Besylate (Amlodipine Besylate 5 Mg Tablet) 5 mg PO DAILY [facility]; Protocol Last Admin: 07/27/23 09:02 Dose: 5 mg Aspirin (Aspirin Enteric Coated 81 Mg Tablet.Dr) 81 mg PO BEDTIME [facility]ATTY Last Admin: 07/27/23 20:03 Dose: 81 mg Atorvastatin Calcium (Atorvastatin Calcium 80 Mg Tablet) 80 mg PO BEDTIME MATTY Last Admin: 07/27/23 20:04 Dose: 80 mg Carvedilol (Carvedilol 6.25 Mg Tablet) 6.25 mg PO BIDWM [facility]; Protocol Last Admin: 07/27/23 17:46 Dose: 6.25 mg Clopidogrel Bisulfate (Clopidogrel Bisulfate 75 Mg Tablet) 75 mg PO DAILY [facility] Last Admin: 07/27/23 09:02 Dose: 75 mg Dextrose (Dextrose 50 % 25 Gm/50 Ml Syringe) 25 gm IVPUSH Q15M PRN; Protocol PRN Reason: per Hypoglycemia Standing Ord. Glucose (Glucose Gel 15 Gm Gel..Gram.) 15 gm PO Q15M PRN; Protocol PRN Reason: per Hypoglycemia Standing Ord. Heparin Sodium (Porcine) (Heparin Sodium,Porcine 5,000 Unit/Ml Vial) 5,000 unit SUBCUT Q12H [facility] Last Admin: 07/27/23 20:03 Dose: 5,000 unit Ceftriaxone Sodium 1 gm/ (Sodium Chloride) 50 mls @ 100 mls/hr IV Q24H [facility] Last Infusion: 07/27/23 20:35 Dose: Infused Insulin Glargine (Insulin Glargine,Hum.Rec.Anlog 100 Unit/Ml 10 Ml Vial) 15 unit SUBCUT BEDTIME [facility] Last Admin: 07/27/23 20:03 Dose: 15 unit Insulin Glargine (Insulin Glargine,Hum.Rec.Anlog 100 Unit/Ml 10 Ml Vial) 20 unit SUBCUT DAILY [facility] Last Admin: 07/27/23 09:03 Dose: 20 unit Insulin Human Lispro (Insulin Lispro 100 Unit/Ml 3 Ml Vial) 0 unit SUBCUT QIDACHS [facility]; Protocol Last Admin: 07/27/23 20:03 Dose: 2 unit Magnesium Oxide (Magnesium Oxide 400 Mg Tablet) 400 mg PO DAILY [facility] Last Admin: 07/27/23 09:02 Dose: 400 mg Melatonin (Melatonin 3 Mg Tablet) 6 mg PO BEDTIME PRN PRN Reason: Insomnia Melatonin (Melatonin 3 Mg Tablet) 3 mg PO BEDTIME PRN PRN Reason: Insomnia Omeprazole (Omeprazole 20 Mg Capsule.) 20 mg PO BID@0630,1630 [facility] Last Admin: 07/27/23 17:46 Dose: 20 mg Ondansetron HCl (Ondansetron Hcl 4 Mg/2 Ml Vial) 4 mg IVPUSH Q8H PRN PRN Reason: Nausea and Vomiting Last Admin: 07/27/23 21:49 Dose: 4 mg Sodium Chloride (0.9 % Sodium Chloride Flush 3 Ml Syringe) 3 ml IVFLUSH QSHIFT [facility] Last Admin: 07/27/23 17:46 Dose: 3 ml Trazodone HCl (Trazodone Hcl 50 Mg Tablet) 50 mg PO BEDTIME [facility] Last Admin: 07/27/23 20:04 Dose: 50 mg Home Medications Medication Instructions Recorded Confirmed Last Taken Type aspirin 81 mg tablet,delayed 81 mg PO BEDTIME 06/20/21 07/24/23 02/19/23 History release atorvastatin 80 mg tablet 80 mg PO BEDTIME 06/20/21 07/24/23 10/13/22 History clopidogrel 75 mg tablet 75 mg PO DAILY 06/20/21 07/24/23 02/19/23 History trazodone 50 mg tablet 50 mg PO BEDTIME 06/20/21 07/24/23 10/13/22 History insulin glargine 100 unit/mL (3 20 unit subcut DAILY 03/25/22 07/24/23 02/19/23 20:00 History mL) subcutaneous pen (Lantus 20 units Solostar U-100 Insulin) ipratropium 0.5 mg-albuterol 3 mg 3 ml inhalation Q4H PRN Wheezing 05/05/22 07/24/23 Unknown History (2.5 mg base)/3 mL nebulization soln melatonin 3 mg tablet 3 mg PO BEDTIME PRN Insomnia 12/27/22 07/24/23 Unknown History amlodipine 5 mg tablet 5 mg PO DAILY 04/20/23 07/24/23 Unknown History carvedilol 6.25 mg tablet 6.25 mg PO BIDWM 04/20/23 07/24/23 Unknown History magnesium oxide 400 mg (241.3 mg 400 mg PO DAILY 04/20/23 07/24/23 Unknown History magnesium) tablet blood sugar diagnostic (Mentis TechnologyTouch #10 ea 05/25/23 Unknown History Ultra Test strips) insulin aspart U-100 100 unit/mL 8 - 12 unit subcut DIRECTED 05/25/23 07/24/23 Unknown History (3 mL) subcutaneous pen (Novolog FlexPen U-100 Insulin aspart) lancets 33 gauge (Duane Landaverdeica #100 ea 05/25/23 Unknown History Plus Lancet) pen needle, diabetic 32 gauge x #1,200 ea 05/25/23 Unknown History (Pentips) Physical Exam Vital Signs: Vital Signs: Last Vital Signs Temp 98.0 F 07/27/23 20:00 Pulse 80 07/27/23 20:00 Resp 18 07/27/23 20:00 BP 129/79 07/27/23 20:00 Pulse Ox 95 07/27/23 20:00 O2 Del Method Room Air 07/27/23 20:00 BMI result Body Mass Index 32.0 EXAM: GENERAL: The patient is frail VITAL SIGNS:see workflow HEENT: Nonicteric sclerae, PERRLA, EOMI. Oropharynx clear. Moist mucous membranes. Conjunctivae appear well perfused. No thyroid mass. CHEST: Chest wall is nontender. HEART: Regular rate and rhythm without murmurs. LUNGS: Clear to auscultation bilaterally. ABDOMEN: Soft, positive bowel sounds, tender epigastrium, no organomegaly.no flank tenderness GENITAL:not done RECTAL: not done SKIN: No rash, no excessive bruising, petechiae, or purpura. NEUROLOGIC: Cranial nerves II-XII intact without motor/sensory deficit. Psych: Appearance: grossly normal Results Labs 07/25/23 05:11 07/25/23 05:11 Microbiology Microbiology Results: Microbiology 07/24/23 Unknown Urine clean catch - Urine chery top Urine Culture - Final Escherichia coli 07/24/23 20:15 Blood - Venous Blood Culture - Preliminary No growth after 48 hours. 07/24/23 20:09 Blood - Venous Blood Culture - Preliminary No growth after [address] scan - abdomen: Attestation: I personally reviewed and interpreted this imaging study as follows: My impression: emphysematous cystitis, fecal loading, atherosclerosis, pleural effusions Assessment and Plan (1) Abdominal pain: Qualifiers: Abdominal location: lower abdomen, unspecified Qualified Code(s): R10.30 - Lower abdominal pain, unspecified Status: Acute (2) Dysphagia: Status: Acute Plan 1/ Suspect her sx are due to acid reflux and damage based on her last EGD from 2021 as well as concomitant asprin use and general debility. PLAN; 1/ Pantoprazole 4 mg OD 2/ Ba swallow w/ pill study 3/ miralax BID for constipation 4/ if ongoing s can consider EGD and dilation Time Spent With Patient Time: Total time managing care of this patient today ____ minutes. Procedures Date of Service Date of Service: 07/27/23
[2023-07-28 04:00] VITALS: BP 134/61; PULSE 66; RESP 16; TEMP 36.1; O2SAT 100
[2023-07-28] MEDS: Omeprazole 20 MG CAPSULE.DR PO (06:13)
[2023-07-28 06:55] VITALS: BP 142/60; PULSE 66; RESP 16; TEMP 36.6; O2SAT 100
[2023-07-28 07:14] LABS: Glucose, Whole Blood 78 mg/dL (60-115)
--- NOTE | 2023-07-28 08:54 | HO.PM.IMPN ---
Subjective Subjective Date of Service: 07/28/23 Interval History: before dc yesterday was complaining about nausea and pain in throat for weeks Physical Exam Vital Signs: Vital Signs: Last Vital Signs Temp 98 F 07/28/23 06:55 Pulse 66 07/28/23 06:55 Resp 16 07/28/23 06:55 BP 142/60 H 07/28/23 06:55 Pulse Ox 100 07/28/23 06:55 O2 Del Method Room Air 07/28/23 06:55 BMI result Body Mass Index 32.0 Psych: Appearance: grossly normal Objective Data Active Medications Acetaminophen (Acetaminophen 325 Mg Tablet) 650 mg PO Q6H PRN PRN Reason: Pain, Mild (Pain Scale 1-3) Last Admin: 07/25/23 20:01 Dose: 650 mg Documented By: NOAM Albuterol Sulfate (Albuterol Sulfate 90 Mcg 8 Gm Inhaler) 1 puff INHALE QID PRN PRN Reason: shortness of breath or wheezing Albuterol/Ipratropium (Albuterol/Iprat 2.5/0.5mg 3 Ml Ampul.Neb) 3 ml INHALE Q4H PRN PRN Reason: Wheezing Amlodipine Besylate (Amlodipine Besylate 5 Mg Tablet) 5 mg PO DAILY [facility]; Protocol Last Admin: 07/28/23 08:24 Dose: Not Given Documented By: COTEMA Non-Admin Reason: NPO Aspirin (Aspirin Enteric Coated 81 Mg Tablet.Dr) 81 mg PO BEDTIME [facility] Last Admin: 07/27/23 20:03 Dose: 81 mg Documented By: RITA Atorvastatin Calcium (Atorvastatin Calcium 80 Mg Tablet) 80 mg PO BEDTIME [facility] Last Admin: 07/27/23 20:04 Dose: 80 mg Documented By: RITA Carvedilol (Carvedilol 6.25 Mg Tablet) 6.25 mg PO BIDWM [facility]; Protocol Last Admin: 07/28/23 08:16 Dose: Not Given Documented By: COTEMA Non-Admin Reason: NPO Clopidogrel Bisulfate (Clopidogrel Bisulfate 75 Mg Tablet) 75 mg PO DAILY [facility] Last Admin: 07/28/23 08:24 Dose: Not Given Documented By: COTEMA Non-Admin Reason: NPO Dextrose (Dextrose 50 % 25 Gm/50 Ml Syringe) 25 gm IVPUSH Q15M PRN; Protocol PRN Reason: per Hypoglycemia Standing Ord. Glucose (Glucose Gel 15 Gm Gel..Gram.) 15 gm PO Q15M PRN; Protocol PRN Reason: per Hypoglycemia Standing Ord. Heparin Sodium (Porcine) (Heparin Sodium,Porcine 5,000 Unit/Ml Vial) 5,000 unit SUBCUT Q12H [facility] Last Admin: 07/28/23 08:25 Dose: Not Given Documented By: CORIE Non-Admin Reason: NPO Ceftriaxone Sodium 1 gm/ (Sodium Chloride) 50 mls @ 100 mls/hr IV Q24H [facility] Last Infusion: 07/27/23 20:35 Dose: Infused Documented By: RITA Insulin Glargine (Insulin Glargine,Hum.Rec.Anlog 100 Unit/Ml 10 Ml Vial) 15 unit SUBCUT BEDTIME [facility] Last Admin: 07/27/23 20:03 Dose: 15 unit Documented By: RITA Insulin Glargine (Insulin Glargine,Hum.Rec.Anlog 100 Unit/Ml 10 Ml Vial) 20 unit SUBCUT DAILY [facility] Last Admin: 07/28/23 08:25 Dose: Not Given Documented By: CORIE Non-Admin Reason: NPO Insulin Human Lispro (Insulin Lispro 100 Unit/Ml 3 Ml Vial) 0 unit SUBCUT QIDACHS [facility]; Protocol Last Admin: 07/28/23 07:15 Dose: Not Given Documented By: CORIE Non-Admin Reason: No Insulin Coverage Magnesium Oxide (Magnesium Oxide 400 Mg Tablet) 400 mg PO DAILY [facility] Last Admin: 07/28/23 08:25 Dose: Not Given Documented By: CORIE Non-Admin Reason: NPO Melatonin (Melatonin 3 Mg Tablet) 6 mg PO BEDTIME PRN PRN Reason: Insomnia Melatonin (Melatonin 3 Mg Tablet) 3 mg PO BEDTIME PRN PRN Reason: Insomnia Omeprazole (Omeprazole 20 Mg Capsule.Dr) 20 mg PO BID@0630,1630 [facility] Last Admin: 07/28/23 06:13 Dose: 20 mg Documented By: RITA Ondansetron HCl (Ondansetron Hcl 4 Mg/2 Ml Vial) 4 mg IVPUSH Q8H PRN PRN Reason: Nausea and Vomiting Last Admin: 07/27/23 21:49 Dose: 4 mg Documented By: HO.TUMASY Sodium Chloride (0.9 % Sodium Chloride Flush 3 Ml Syringe) 3 ml IVFLUSH QSHIFT [facility] Last Admin: 07/28/23 08:15 Dose: Not Given Documented By: COTEMA Non-Admin Reason: Previously Administered Trazodone HCl (Trazodone Hcl 50 Mg Tablet) 50 mg PO BEDTIME [facility] Last Admin: 07/27/23 20:04 Dose: 50 mg Documented By: TUMASY Labs 07/25/23 05:11 07/25/23 05:11 Labs: Laboratory Results - last 24 hr 07/27/23 07/27/23 07/27/23 10:59 16:07 19:35 POC Glucose 159 H 154 H 162 H 07/28/23 07:11 POC Glucose 78 Microbiology Microbiology Results: Microbiology 07/24/23 Unknown Urine Culture - Final Urine clean catch - Urine chery top Escherichia coli Assessment and Plan (1) Abdominal pain: Status: Acute (2) End stage renal disease: Status: Acute (3) Emphysematous cystitis: Status: Acute Plan 68-year-old female with pertinent history of ESRD on HD, congestive heart failure with reduced ejection fraction, insulin-dependent type 2 diabetes mellitus, essential hypertension, mixed hyperlipidemia, chronic opioid use, mood disorder, urinary retention, gastroesophageal reflux disease who presents to the emergency department for evaluation of abdominal pain and urinary hesitancy. Acute emphysematous cystitis. No sepsis, culture = e coli sensitive to ceftriaxone, will change to ceftin at discharge Congestive heart failure with reduced ejection fraction Essential hypertension -Conintue home antihypertensives ? History of CVA: on plavix, aspirin and high-intensity statin Dysphagia gi recommends ppi, barium study ? Insulin-dependent type 2 diabetes mellitus with hyperglycemia:? Reduce basal insulin.? Initiating Accu-Cheks with sliding scale insulin before meals and at bedtime ? ESRD on hemodialysis: Consulting Nephrology. Patient hemodialysis Monday/Monday/Monday. Mood disorder. On trazodone DVT prophylaxis: Heparin Full code Low-salt diet need for inpatient: UTI with abdominal requiring IV Abx Time Spent With Patient Time: Total time managing care of this patient today ____ minutes. Quality Stroke Does the patient have a stroke diagnosis?: No VTE Prior VTE?: No VTE Risk Level:: Medical - moderate - high VTE Device Contraindication: Treatment Not Indicated VTE Drug Contraindication: N/A - Med Ordered
[2023-07-28] MEDS: ondansetron HCL 4 MG/2 ML VIAL IVPUSH (10:40)
[2023-07-28 11:03] LABS: Glucose, Whole Blood 120 mg/dL (60-115)
--- NOTE | 2023-07-28 13:16 | MHC.CM.PN ---
IMM 07/28/23 via cross roller. Pt has been medically cleared for DC. She is going home, self care via ambulance.
[2023-07-28 16:00] VITALS: BP 137/67; PULSE 63; RESP 18; TEMP 36.5; O2SAT 97
[2023-07-28 17:47] LABS: Glucose, Whole Blood 163 mg/dL (60-115)
--- NOTE | 2023-07-31 01:23 | CONS_ITS ---
DATE OF SERVICE: 07/25/2023 REASON FOR CONSULTATION: Consult requested by the medical team to evaluate and help in management of patient with end-stage renal disease, who has been admitted with abdominal pain. HISTORY OF PRESENT ILLNESS: Patient is a 68-year-old female with past medical history of ESRD, on hemodialysis; history of CHF with reduced ejection fraction; type 2 diabetes mellitus; hypertension, who presents to the hospital with above-mentioned complaint. She had urinary hesitancy. Apparently, symptoms started 2 days before presentation. She does not make much urine. There is no fever or chills. There is no vomiting. Patient underwent dialysis session on the day of presentation and had nausea during dialysis. There is no chest pain, palpitations, shortness of breath. REVIEW OF SYSTEMS: As noted above. Other systems are reviewed, negative. PAST MEDICAL HISTORY: History of ESRD, on hemodialysis; history of CHF with reduced ejection fraction; history of type 2 diabetes mellitus; hypertension; hyperlipidemia; chronic opiate abuse; mood disorder; urinary retention; GERD. FAMILY HISTORY: Include father with lung CA and disease. Mother with diabetes, hypertension, heart disease, she is . PAST SURGICAL HISTORY: Include amputation of finger, history of cholecystectomy laparoscopic, history of intestinal surgery, eye surgery, colonoscopy, and hysterectomy. PERSONAL/SOCIAL HISTORY: Patient does not smoke. ALLERGIES: PATIENT HAS ALLERGIES TO LATEX. MEDICATIONS: As outpatient and inpatient were reviewed. PHYSICAL EXAMINATION: GENERAL: Patient is resting in the ER bed. Awake, alert, able to follow commands. VITAL SIGNS: Blood pressure was 159/65, pulse 65, afebrile. HEENT: Shows pupils equal, round, reactive bilaterally to light. NECK: No jugular venous distention is noted. Neck was supple. CARDIOVASCULAR SYSTEM: S1, S2 without rub. RESPIRATORY SYSTEM: Mildly decreased in bases. ABDOMEN: Soft, nontender. Bowel sounds normal. EXTREMITIES: Showed no edema. LABORATORY DATA: Done recently. WBC is 8.4, hemoglobin 9.9, hematocrit 31.7, platelets were 169. Sodium 137, potassium 4.3, chloride 98, CO2 of 27, BUN 19, creatinine 2.38, glucose 283. IMPRESSION: 68-year-old female with; 1. End-stage renal disease, on hemodialysis. 2. Acute emphysematous cholecystitis without sepsis. 3. History of congestive heart failure with reduced ejection fraction. 4. Hypertension. 5. Anemia of chronic disease. 6. Type 2 diabetes mellitus. RECOMMENDATION: At this juncture, I will arrange for hemodialysis for the patient in the inpatient dialysis unit based on her schedule. She usually dialyzes Monday, Monday, Monday and we will get dialysis on Monday in a.m. We will remove fluid as tolerated and use potassium per protocol. Abdominal pain workup as per medical team. Thank you for allowing me to participate in medical management of the patient. MD ALANIS Larsen/BURAK / [phone]
== END 2023-07-28 18:05 | disposition home or self-care (01) | DRG 689 ==
LOC: HO.ED 20:25 → HO.EDOVER 20:37 → HO.S3 07-25 20:10
PROVIDERS: Admitting Provider Student in an Organized Health Care Education/Training Program; Emergency Provider Emergency Medicine; PCP Internal Medicine; Visit Provider Internal Medicine
DX: N30.80 Other cystitis without hematuria (principal); I50.23 Acute on chronic systolic (congestive) heart failure; N18.6 End stage renal disease; I13.2 Hypertensive heart and chronic kidney disease with heart failure and with stage 5 chronic kidney disease, or end stage renal disease; E11.22 Type 2 diabetes mellitus with diabetic chronic kidney disease; E11.65 Type 2 diabetes mellitus with hyperglycemia; E78.2 Mixed hyperlipidemia; F39 Unspecified mood [affective] disorder; K21.9 Gastro-esophageal reflux disease without esophagitis; D63.1 Anemia in chronic kidney disease; R13.10 Dysphagia, unspecified; Z99.2 Dependence on renal dialysis; B96.20 Unspecified Escherichia coli [E. coli] as the cause of diseases classified elsewhere; Z91.040 Latex allergy status; Z86.73 Personal history of transient ischemic attack (TIA), and cerebral infarction without residual deficits; Z79.4 Long term (current) use of insulin; Z79.02 Long term (current) use of antithrombotics/antiplatelets; Z79.82 Long term (current) use of aspirin; Z79.899 Other long term (current) drug therapy
CPT/HCPCS: 36415; 74176; 74220; 80048; 80076; 81001; 82947; 83605; 83690; 83735; 85025; 87040; 87086; 87088; 87186; 90999; 93005; 99285; J0696; J1643; J2405

== ENCOUNTER 2023-07-24 20:21 | Outpatient (BNV) | payer OTHER, SELFPAY | END 2023-07-28 07:00 | PROVIDERS: Admitting Provider Student in an Organized Health Care Education/Training Program; Emergency Provider Emergency Medicine; PCP Internal Medicine; Visit Provider Radiology Diagnostic Radiology | DX: R13.14 Dysphagia, pharyngoesophageal phase (principal) | CPT/HCPCS: 74221 ==

== ENCOUNTER → 2023-07-24 20:21 | Outpatient (BNV) | payer OTHER, SELFPAY | PROVIDERS: Admitting Provider Student in an Organized Health Care Education/Training Program; Emergency Provider Emergency Medicine; PCP Internal Medicine; Visit Provider Internal Medicine Gastroenterology | DX: R10.30 Lower abdominal pain, unspecified (principal); R13.10 Dysphagia, unspecified | CPT/HCPCS: 99222 ==

== ENCOUNTER → 2023-07-24 20:21 | Outpatient (BNV) | payer OTHER, SELFPAY | PROVIDERS: Admitting Provider Student in an Organized Health Care Education/Training Program; Emergency Provider Emergency Medicine; PCP Internal Medicine; Visit Provider Student in an Organized Health Care Education/Training Program | DX: R10.30 Lower abdominal pain, unspecified (principal); N18.6 End stage renal disease; N30.80 Other cystitis without hematuria | CPT/HCPCS: 99222; 99232; 99239 ==

== ENCOUNTER 2023-08-17 13:54 | Outpatient (REF) | payer OTHER, SELFPAY ==
[2023-08-17 17:22] LABS: CDiff Gene PCR NEGATIVE (Negative)
== END 2023-08-17 13:55 | disposition home or self-care (01) ==
LOC: HO.HHCLNP 13:54
PROVIDERS: Visit Provider Internal Medicine
DX: K59.1 Functional diarrhea (principal)
CPT/HCPCS: 87493

== ENCOUNTER 2023-08-18 13:45 | Outpatient (REF) | payer OTHER, SELFPAY ==
[2023-08-19 07:29] LABS: Campylobacter Not Detected (Not Detect.); Plesiomonas shigelloides Not Detected (Not Detect.); Salmonella Not Detected (Not Detect.); Vibrio Not Detected (Not Detect.); Vibrio Cholerae Not Detected (Not Detect.); Yersinia enterocolitica Not Detected (Not Detect.)
[2023-08-19 07:30] LABS: Adenovirus F 40/41 Not Detected (Not Detect.); Astrovirus Not Detected (Not Detect.); Cryptosporidium Not Detected (Not Detect.); Cyclospora cayetanensis Not Detected (Not Detect.); E. coli EAEC Not Detected (Not Detect.); E. coli EPEC Not Detected (Not Detect.); E. coli ETEC Not Detected (Not Detect.); E. coli STEC Not Detected (Not Detect.); Entamoeba histolytica Not Detected (Not Detect.); Giardia lamblia Not Detected (Not Detect.); Norovirus GI/GII Not Detected (Not Detect.); Rotavirus A Not Detected (Not Detect.); Sapovirus Not Detected (Not Detect.); Shigella sp./EIEC Not Detected (Not Detect.)
== END 2023-08-18 13:46 | disposition home or self-care (01) ==
LOC: HO.HHCL 13:45
PROVIDERS: Visit Provider Internal Medicine
DX: K59.1 Functional diarrhea (principal)
CPT/HCPCS: 87507

== ENCOUNTER 2023-09-21 10:38 | Inpatient (IN) | payer OTHER, SELFPAY ==
[2023-09-21] VITALS (8 sets, daily range): BP systolic 108–184; BP diastolic 51–75; PULSE 4–74; RESP 14–24; TEMP 36.4–36.6; O2SAT 90–100; BMI 32.5
--- NOTE | ~2023-09-21 | XR_ITS ---
EXAMINATION: XR CHEST CLINICAL INFORMATION: Chest pain, shortness of breath COMPARISON: 06/26/2023 TECHNIQUE: 2 views of the chest were obtained. FINDINGS: Probable central vascular congestion with a small right pleural effusion has increased in size. Right basilar atelectasis. The cardiomediastinal silhouette is stable. XR/XR chest 2V IMPRESSION: Probable central vascular congestion with a small right pleural effusion, increased in size.
--- NOTE | 2023-09-21 10:46 | ECG_ITS ---
Test Reason : chest pain Blood Pressure : / mmHG Vent. Rate : 069 BPM Atrial Rate : 069 BPM P-R Int : 156 ms QRS Dur : 126 ms QT Int : 476 ms P-R-T Axes : 056 -05 207 degrees QTc Int : 510 ms Normal sinus rhythm Non-specific intra-ventricular conduction block Minimal voltage criteria for LVH, may be normal variant ( Heriberto product ) Cannot rule out Anterior infarct (cited on or before 21-SEP-2023) T wave abnormality, consider inferolateral ischemia Abnormal ECG When compared with ECG of 24-JUL-2023 18:37, Premature ventricular complexes are no longer Present Serial changes of Anterior infarct Present Referred By: Generic ED Physician Electronically Signed By:LUCRECIA PILLAI MD
--- NOTE | 2023-09-21 11:09 | ED.GENADULT ---
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 Per patient, she arrived at a doctor's appointment today and upon getting out of her car, felt short of breath, light headed, and dizzy. Upon EMS arrival she was then transported to the ED for evaluation. At present, patient reports a heaviness in her chest, making it difficult for her to breath. Denies chest pain or palpitations. SHe is currently on HD every monday and monday however missed this Monday's dialysis appointment (4 days ago) as she did not have a ride. Denies fever, chills, vision changes, nausea/vomiting. Related Data Home Medications Medication Instructions Recorded Confirmed aspirin 81 mg tablet,delayed 81 mg PO BEDTIME 06/20/21 09/21/23 release atorvastatin 80 mg tablet 80 mg PO BEDTIME 06/20/21 09/21/23 clopidogrel 75 mg tablet 75 mg PO DAILY 06/20/21 09/21/23 insulin glargine 100 unit/mL (3 20 unit subcut DAILY 03/25/22 09/21/23 mL) subcutaneous pen (Lantus Solostar U-100 Insulin) amlodipine 5 mg tablet 5 mg PO DAILY 04/20/23 09/21/23 carvedilol 6.25 mg tablet 6.25 mg PO BIDWM 04/20/23 09/21/23 magnesium oxide 400 mg (241.3 mg 400 mg PO DAILY 04/20/23 09/21/23 magnesium) tablet blood sugar diagnostic (OneTouch #10 ea 05/25/23 Ultra Test strips) insulin aspart U-100 100 unit/mL 1 sliding scale dose subcut TIDAC 05/25/23 09/21/23 (3 mL) subcutaneous pen (Novolog FlexPen U-100 Insulin aspart) lancets 33 gauge (OneTouch Delica #100 ea 05/25/23 Plus Lancet) pen needle, diabetic 32 gauge x #1,200 ea 05/25/23 (Pentips) albuterol sulfate 90 mcg/actuation 2 inh inhalation Q4H PRN shortness 09/21/23 09/21/23 aerosol inhaler of breath or wheezing melatonin 5 mg tablet 10 mg PO BEDTIME 09/21/23 09/21/23 Allergies Allergy/AdvReac Type Severity Reaction Status Date / Time latex [LATEX] Allergy Intermediate ITCHY Verified 05/25/23 09:18 Review of Systems Review of Systems: Constitutional: No fever, chills, fatigue, night sweats, weight changes ENT/Mouth: No ear pain, hearing loss, nasal congestion, sinus pain, rhinorrhea, sore throat Eyes: No eye pain, swelling, redness, vision changes, discharge Cardio: No chest pain, No palpitations, AWAD, orthopnea, peripheral edema Pulm: +SOB, No cough, sputum, wheezing, dyspnea, hemoptysis GI: No nausea, vomiting, hematemesis, abdominal pain, diarrhea, constipation, hematochezia, melena : No irregular bleeding, dysuria, frequency, urgency, hesitancy, hematuria, flank pain, urinary flow changes, urinary incontinence or retention MSK: No back pain, neck pain, joint pain, myalgias Skin: No lesions, rashes Neuro: No weakness, numbness, paresthesias, LOC, +dizziness, headache All other systems reviewed and are negative. [facility] Past Medical History Attestation statement: The following information was validated with the patient. 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 Normocytic anemia Urinary tract infection due to ESBL Klebsiella Chronic heart failure with preserved ejection fraction (HFpEF) Hypomagnesemia Acute on chronic renal failure Essential hypertension HLD (hyperlipidemia) Non-ST elevated myocardial infarction Diabetes mellitus Congestive heart failure Nonischemic cardiomyopathy Irritable bowel syndrome with diarrhea Gastroparesis GERD (gastroesophageal reflux disease) Surgical History H/O surgical amputation of finger History of laparoscopic cholecystectomy History of intestinal surgery Hx of eye surgery History of esophagogastroduodenoscopy (EGD) Hx of colonoscopy H/O: hysterectomy Family History Family History Father Lung cancer Mother Diabetes HTN (hypertension) Heart disease Sister Diabetes Heart disease Brother Heart disease Son Diabetes Daughter Diabetes Social History Social History Household Members: Family and Children Household Members Other:: SNF Housing: House Do you presently have visiting nurse or other home services: No Unable to assess alcohol history related to: Unknown Alcohol intake: never Comment: report called by previous shift RN Patient Tobacco Use Status: Never used Tobacco Second Hand Smoke Exposure: No Advance Directives Date on File: 01/04/23 service: No Current occupational status: disabled Physical Exam ED Vital Signs: Vital Signs - 24 hr 09/21/23 14:44 Pulse Rate 74 Respiratory Rate 18 Blood Pressure 184/75 H Pulse Oximetry 98 Oxygen Delivery Method Room Air BMI result Body Mass Index 32.5 VS notable for tachypnea and hypertension. Const Other: + patient anxious, tearful General: cooperative, alert and awake; No diaphoretic Orientation/consciousness: patient oriented x3 Limitations: no limitations HENMT Head: Yes normal to inspection Ears: hearing grossly normal bilaterally Eyes General: appearance normal, both eyes and all related structures Conjunctivae: conjunctivae normal Sclerae: sclerae normal Pupils: Equal, round and reactive pupils present Neck Neck: Yes normal visual inspection, Yes no lymphadenopathy and Yes no JVD Chest Chest palpation & inspection: normal inspection of the chest Resp Effort & Inspection: normal respiratory effort, no pursed lip breathing, no respiratory distress, tachypneic, no tripod positioning and no use of accessory muscles Auscultation: clear to auscultation bilaterally Cardio Jugular venous distension: no JVD Rate: regular rate Rhythm: regular rhythm Peripheral pulses: radial pulses present GI Inspection: Yes normal to inspection Palpation (GI): Soft to palpation, nontender and no pulsatile masses Skin General skin exam: no rashes or lesions noted Neuro Other: + 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 Hypertensive to 185/75. No hypoxia. Afebrile. > CBC without leukocytosis. Chronic normocytic anemia 10.3/32.8. Potassium noted to be 6.2. BUN 57. Creatinine 4.93. Alk-phos 182. Troponin 29.1 (will repeat). BNP 3114. EKG showing NSR at a rate of 69 bpm with nonspecific intraventricular conduction block and T wave abnormality. > discussed case with my attending physician Dr. Camara who agrees with plan to administer albuterol, insulin, lokelma, lasix for hyperkalemia. > will also order ceftriaxone and azithromycin for suspected infection. > will hold fluids pending cxr to r/o fluid overload 1328-- CXR shows probable central vascular congestion with small right pleural effusion that has increased in size. Given patient's hyperkalemia, CHF and possible right pleural effusion, will present to hospitalist for admission pending repeat troponin and BMP. 1335-- Discussed case with hospitalist, Dr. Starkey who will put in admission orders for acute hyperkalemia and fluid overload. Medications Administered Discontinued Medications Generic Name Dose Route Start Last Admin Trade Name Freq PRN Reason Stop Dose Admin Acetaminophen 975 mg 09/21/23 15:11 09/21/23 15:37 Acetaminophen 325 Mg Tablet PO 09/21/23 15:12 975 mg ONCE ONE Administration Albuterol Sulfate 7.5 mg/ 10 mg 09/21/23 12:31 09/21/23 12:49 Albuterol Sulfate 2.5 mg INHALE 09/21/23 12:32 10 mg ONCE ONE Administration Amlodipine Besylate 5 mg 09/22/23 09:00 09/22/23 08:22 Amlodipine Besylate 5 Mg Tablet PO 5 mg DAILY MATTY Administration Protocol Carvedilol 6.25 mg 09/22/23 08:00 09/22/23 08:22 Carvedilol 6.25 Mg Tablet PO 6.25 mg BIDWM MATTY Administration Protocol Clopidogrel Bisulfate 75 mg 09/22/23 09:00 09/22/23 08:22 Clopidogrel Bisulfate 75 Mg Tablet PO 75 mg DAILY MATTY Administration Dextrose 25 gm 09/21/23 13:07 09/21/23 13:26 Dextrose 50 % 25 Gm/50 Ml Syringe IVPUSH 09/21/23 13:08 25 gm ONCE ONE Administration Furosemide 40 mg 09/21/23 12:42 09/21/23 13:26 Furosemide 40 Mg/4 Ml Vial IVPUSH 09/21/23 12:43 40 mg STAT ONE Administration Protocol Heparin Sodium (Porcine) 5,000 unit 09/21/23 17:00 09/22/23 08:22 Heparin Sodium,Porcine 5,000 Unit/Ml Vial SUBCUT 5,000 unit Q8H MATTY Administration Ceftriaxone Sodium 1 gm/ 50 mls @ 100 mls/hr 09/21/23 12:36 09/21/23 14:49 Sodium Chloride IV 09/21/23 13:05 Infused ONCE ONE Infusion Azithromycin 500 mg/ Sodium 250 mls @ 125 mls/hr 09/21/23 12:36 09/21/23 17:22 Chloride IV 09/21/23 14:35 Infused ONCE ONE Infusion Insulin Human Regular 10 unit 09/21/23 12:36 09/21/23 13:25 Insulin Regular, Human 100 Unit/Ml 3 Ml Vial IVPUSH 09/21/23 12:37 10 unit ONCE ONE Administration Ketorolac Tromethamine 15 mg 09/21/23 16:28 09/22/23 08:27 Ketorolac Tromethamine 15 Mg/Ml Vial IVPUSH 15 mg Q6H PRN Administration Pain, Moderate(Pain Scale 4-6) Magnesium Oxide 400 mg 09/22/23 09:00 09/22/23 08:22 Magnesium Oxide 400 Mg Tablet PO 400 mg DAILY MATTY Administration Ondansetron HCl 4 mg 09/21/23 16:19 09/22/23 13:07 Ondansetron Hcl 4 Mg/2 Ml Vial IVPUSH 4 mg Q8H PRN Administration Nausea and Vomiting Sodium Chloride 3 ml 09/22/23 00:00 09/22/23 08:22 0.9 % Sodium Chloride Flush 3 Ml Syringe IVFLUSH 3 ml QSHIFT MATTY Administration Sodium Zirconium Cyclosilicate 10 gm 09/21/23 12:26 09/21/23 13:26 Sodium Zirconium Cyclosilicate 10 Gm Powd.Pack PO 09/21/23 12:27 10 gm ONCE ONE Administration Medical Decision Making Medical Decision Making MDM Narrative: 68 year old female with pmhx significant for ESR on M/F HD, HFrEF, insulin-dependent T2DM, HTN, HDL, GERD, and mood disorder presents to the ED today with 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 VS notable for tachypnea and hypertension. Patient visibly anxious and tearful on examination. Lungs CTA b/l. RRR. No JVD. Left BKA. Exam nonfocal. Cerebellum intact. Concern for ACS, arrhythmia, electrolyte abnormality, anemia, pleural effusion, pneumonia, CHF, hypertension, hypoglycemia. Lower suspicion for UTI, pneumothorax, pericardial effusion, DKA, CVA/TIA, cerebellar stroke. Plan for labs, cxr, ekg, and re-evaluation. Differential Diagnosis Differential Diagnoses: The differential diagnosis associated with the presentation includes as above. Admission/Observation Consideration of admission/observation: Escalation of care including admission/observation considered This 68-year-old the patient with end-stage renal disease, hyperkalemia and fluid overload will be admitted. Consult Healthcare Provider Management of the patient was discussed with: Hospitalist (Dr. Starkey) Lab Data MDM Lab Attestation statement: I reviewed the patient's lab results. as above. 09/22/23 05:14 09/22/23 05:14 Labs: Lab Results 09/21/23 09/21/23 09/21/23 Range/Units 11:42 12:55 14:47 WBC 8.5 (4.8-10.8) X10*3/uL RBC 3.80 L (4.20-5.50) X10*6/uL Hgb 10.3 L (12.0-16.0) g/dl Hct 32.8 L (37.0-47.0) % MCV 86.3 (80.0-98.0) fL MCH 27.1 (27.0-33.0) pg MCHC 31.4 (31.0-35.0) g/dl RDW 14.5 (11.0-16.0) % Plt Count 177 (160-400) X10*3/uL MPV 10.7 (9.4-12.3) fL Immature Gran % (Auto) 1.1 H (0.0-0.4) % Neut % (Auto) 72.9 (45-73) % Lymph % (Auto) 15.5 L (20-40) % [place] % (Auto) 7.9 (2-11) % Eos % (Auto) 2.2 (0-4) % Baso % (Auto) 0.4 (0-2) % Lymph # (Auto) 1.3 (1.2-4.9) X10*3/uL [place] # (Auto) 0.7 (0.1-1.2) X10*3/uL Eos # (Auto) 0.2 (0.0-0.4) X10*3/uL Baso # (Auto) 0.0 (0.0-0.2) X10*3/uL Abs Immat Gran (auto) 0.09 H (0.00-0.03) X10*3/uL Absolute Neuts (auto) 6.2 (2.0-8.3) x10*3/uL Absolute Nucleated RBC 0.000 (0.0-0.012) X10*3/uL Nucleated RBC % (auto) 0.0 (0.0-0.2) /100WBC PT 15.5 H (11.1-13.3) SEC INR 1.3 H (0.9-1.1) Sodium 139 (135-145) mmol/L Potassium 6.2 H* D (3.3-5.1) mmol/L Chloride 108 (96-108) mmol/L Carbon Dioxide 20 L (22-29) mmol/L Anion Gap 17 (12-20) BUN 57 H (9-16) mg/dL Creatinine 4.93 H* (0.5-1.4) mg/dL Estim Creat Clear Calc 8.8 Estimated GFR 9 Random Glucose 258 H (60-115) mg/dL Lactic Acid 1.4 (0.5-2.0) mmol/L Calcium 8.7 (8.4-10.2) mg/dL Magnesium 2.0 (1.6-2.6) mg/dL Total Bilirubin 0.2 (0.0-1.0) mg/dL AST 10 (5-31) U/L ALT 9 (0-31) U/L Alkaline Phosphatase 182 H (39-117) U/L Troponin I High Sens 29.1 H 25.7 H (<3.5-17.0) ng/L B-Natriuretic Peptide 3014 H (<100) pg/mL Total Protein 7.2 (6.5-8.0) g/dL Albumin 3.4 L (3.5-5.0) g/dL Lipase 14 (8-78) U/L 09/21/23 09/21/23 09/21/23 Range/Units 15:34 15:34 15:34 WBC (4.8-10.8) X10*3/uL RBC (4.20-5.50) X10*6/uL Hgb (12.0-16.0) g/dl Hct (37.0-47.0) % MCV (80.0-98.0) fL MCH (27.0-33.0) pg MCHC (31.0-35.0) g/dl RDW (11.0-16.0) % Plt Count (160-400) X10*3/uL MPV (9.4-12.3) fL Immature Gran % (Auto) (0.0-0.4) % Neut % (Auto) (45-73) % Lymph % (Auto) (20-40) % [place] % (Auto) (2-11) % Eos % (Auto) (0-4) % Baso % (Auto) (0-2) % Lymph # (Auto) (1.2-4.9) X10*3/uL [place] # (Auto) (0.1-1.2) X10*3/uL Eos # (Auto) (0.0-0.4) X10*3/uL Baso # (Auto) (0.0-0.2) X10*3/uL Abs Immat Gran (auto) (0.00-0.03) X10*3/uL Absolute Neuts (auto) (2.0-8.3) x10*3/uL Absolute Nucleated RBC (0.0-0.012) X10*3/uL Nucleated RBC % (auto) (0.0-0.2) /100WBC PT (11.1-13.3) SEC INR (0.9-1.1) Sodium 138 139 (135-145) mmol/L Potassium 4.9 D 5.0 (3.3-5.1) mmol/L Chloride 109 H (96-108) mmol/L Carbon Dioxide (22-29) mmol/L Anion Gap (12-20) BUN (9-16) mg/dL Creatinine (0.5-1.4) mg/dL Estim Creat Clear Calc Estimated GFR Random Glucose (60-115) mg/dL Lactic Acid (0.5-2.0) mmol/L Calcium (8.4-10.2) mg/dL Magnesium (1.6-2.6) mg/dL Total Bilirubin (0.0-1.0) mg/dL AST (5-31) U/L ALT (0-31) U/L Alkaline Phosphatase (39-117) U/L Troponin I High Sens (<3.5-17.0) ng/L B-Natriuretic Peptide (<100) pg/mL Total Protein (6.5-8.0) g/dL Albumin (3.5-5.0) g/dL Lipase (8-78) U/L 09/21/23 09/21/23 09/21/23 Range/Units 15:34 15:34 15:34 WBC (4.8-10.8) X10*3/uL RBC (4.20-5.50) X10*6/uL Hgb (12.0-16.0) g/dl Hct (37.0-47.0) % MCV (80.0-98.0) fL MCH (27.0-33.0) pg MCHC (31.0-35.0) g/dl RDW (11.0-16.0) % Plt Count (160-400) X10*3/uL MPV (9.4-12.3) fL Immature Gran % (Auto) (0.0-0.4) % Neut % (Auto) (45-73) % Lymph % (Auto) (20-40) % [place] % (Auto) (2-11) % Eos % (Auto) (0-4) % Baso % (Auto) (0-2) % Lymph # (Auto) (1.2-4.9) X10*3/uL [place] # (Auto) (0.1-1.2) X10*3/uL Eos # (Auto) (0.0-0.4) X10*3/uL Baso # (Auto) (0.0-0.2) X10*3/uL Abs Immat Gran (auto) (0.00-0.03) X10*3/uL Absolute Neuts (auto) (2.0-8.3) x10*3/uL Absolute Nucleated RBC (0.0-0.012) X10*3/uL Nucleated RBC % (auto) (0.0-0.2) /100WBC PT (11.1-13.3) SEC INR (0.9-1.1) Sodium (135-145) mmol/L Potassium (3.3-5.1) mmol/L Chloride 108 (96-108) mmol/L Carbon Dioxide 17 L 17 L (22-29) mmol/L Anion Gap 17 19 (12-20) BUN 56 H (9-16) mg/dL Creatinine 4.74 H* (0.5-1.4) mg/dL Estim Creat Clear Calc 9.2 Estimated GFR 9 Random Glucose 211 H (60-115) mg/dL Lactic Acid (0.5-2.0) mmol/L Calcium 8.4 (8.4-10.2) mg/dL Magnesium (1.6-2.6) mg/dL Total Bilirubin (0.0-1.0) mg/dL AST (5-31) U/L ALT (0-31) U/L Alkaline Phosphatase (39-117) U/L Troponin I High Sens (<3.5-17.0) ng/L B-Natriuretic Peptide (<100) pg/mL Total Protein (6.5-8.0) g/dL Albumin (3.5-5.0) g/dL Lipase (8-78) U/L Independent Interpretation I performed an independent interpretation of an: EKG and Plain X-Ray Interpretation: Chest x-ray showing small right pleural effusion, agree with radiologist's interpretation. EKG showing normal sinus rhythm with a rate of 69 beats per minute, nonspecific intraventricular conduction block and T-wave abnormality. Radiology Impression Discussion of test interpretation with radiology: I have reviewed the radiologist's reading. Radiologist Impression: XR chest 2V IMPRESSION: Probable central vascular congestion with a small right pleural effusion, increased in size. Independent Historian Clinical information obtained from an independent historian. History obtained from or confirmed by: Other (daughter) External Record Review External record reviewed: Inpatient record, Office record, Outpatient record, Prior outpatient labs, Prior outpatient radiology, Primary care record and Outside ED record Prescription Management I considered prescription management with: Antibiotic Chronic Conditions Patient?s care impacted by: Diabetes and Other (End-stage renal disease) Social Determinants Patient?s care significantly limited by Social Determinants of Health including: Other Social Determinant of Health Critical Care Time Critical Care Time Critical Care Time: Yes Total Critical Care Time: 45 Attestation: Critical care time in the amount of 45 minutes has been provided to the patient in terms of direct patient care, frequent reevaluation, consultation with hostpitalsit, review and interpretation of medical data and results, and management of potentially life-threatening conditions. This is all outside of any medical procedures. Discharge Plan Discharge Clinical Impression: Hyperkalemia Patient Disposition: Admitted As Inpatient Interventions: Admission Worksheet (ED) Last Done: 09/21/23 16:52 Discharge Date/Time: 09/21/23 17:11
--- NOTE | 2023-09-21 11:44 | PC.NURSE ---
fistula on left arm +burit and thrill. PT also has port to right chest where she is currently getting dialysis mondays and fridays.
--- NOTE | 2023-09-21 11:46 | PC.NURSE ---
labs drawn and sent.
--- NOTE | 2023-09-21 11:47 | PC.NURSE ---
Pt a &ox4 coming in for left arm pain that started around 10am. Pt denies cp. left BKA noted. Pt reports sob is sating at 98% RA. skin pwd. uses wheelchair at baseline.
[2023-09-21 11:50] LABS: MANUAL DIFF FLAG NO
[2023-09-21 11:56] LABS: Basophils Percent Auto 0.4 % (0-2); Eosinophils Absolute Auto 0.2 X10*3/uL (0.0-0.4); Eosinophils Percent Auto 2.2 % (0-4); Hematocrit 32.8 % (37.0-47.0); Hemoglobin 10.3 g/dl (12.0-16.0); Imm Gran Abs Auto 0.09 X10*3/uL (0.00-0.03); Imm Gran Pct Auto 1.1 % (0.0-0.4); Lymphocytes Absolute Auto 1.3 X10*3/uL (1.2-4.9); Lymphocytes Percent Auto 15.5 % (20-40); Mean Corpuscular HGB Conc 31.4 g/dl (31.0-35.0); Mean Corpuscular Hemoglobin 27.1 pg (27.0-33.0); Mean Corpuscular Volume 86.3 fL (80.0-98.0); Mean Platelet Volume 10.7 fL (9.4-12.3); Monocytes Absolute Auto 0.7 X10*3/uL (0.1-1.2); Monocytes Percent Auto 7.9 % (2-11); Neutrophils Absolute Auto 6.2 x10*3/uL (2.0-8.3); Neutrophils Percent Auto 72.9 % (45-73); Platelet Count 177 X10*3/uL (160-400); Red Cell Distribution Width 14.5 % (11.0-16.0); White Blood Count 8.5 X10*3/uL (4.8-10.8)
[2023-09-21 11:58] LABS: INTERNATIONAL NORM RATIO 1.3 (0.9-1.1); Prothrombin Time 15.5 SEC (11.1-13.3)
[2023-09-21 12:14] LABS: Alanine Aminotransferase 9 U/L (0-31); Albumin Level 3.4 g/dL (3.5-5.0); Alkaline Phosphatase 182 U/L (39-117); Anion Gap 17 (12-20); Aspartate Amino Transferase 10 U/L (5-31); Bilirubin Total 0.2 mg/dL (0.0-1.0); Blood Urea Nitrogen 57 mg/dL (9-16); Calcium 8.7 mg/dL (8.4-10.2); Carbon Dioxide 20 mmol/L (22-29); Chloride 108 mmol/L (96-108); Creatinine Clr Calc Pharmacy 8.8; Estimated Glomerular Filt Rate 9; Glucose Random 258 mg/dL (60-115); Lipase 14 U/L (8-78); Potassium 6.2 mmol/L (3.3-5.1); Sodium 139 mmol/L (135-145); Total Protein 7.2 g/dL (6.5-8.0)
[2023-09-21 12:15] LABS: B Type Natriuretic Peptide 3014 pg/mL (<100)
[2023-09-21 12:18] LABS: Troponin-I High Sensitivity 29.1 ng/L (<3.5-17.0)
[2023-09-21] MEDS: Albuterol Sulfate 7.5 MG, Albuterol Sulfate (0.083%) 2.5 MG 10 MG INHALE (12:49)
[2023-09-21 13:11] LABS: Lactic Acid 1.4 mmol/L (0.5-2.0)
[2023-09-21] MEDS: Insulin Regular, Human 100 UNIT/ML 3 ML VIAL 10 UNIT IVPUSH (13:25)
[2023-09-21] MEDS: Furosemide 40 MG/4 ML VIAL IVPUSH (13:26)
[2023-09-21] MEDS: Sodium Zirconium Cyclosilicate 10 GM POWD.PACK PO (13:26)
[2023-09-21] MEDS: Dextrose 50 % 25 GM/50 ML SYRINGE IVPUSH (13:26)
[2023-09-21] MEDS: cefTRIAXone sodium 1 GM in 0.9 % Sodium Chloride 50 ML IV (13:26)
--- NOTE | 2023-09-21 14:30 | PHA.MEDREC ---
Pharmacy Consult ? Medication Reconciliation Pharmacy has completed the medication reconciliation. Spoke to patient to confirm meds, however they are poor historian. Patient knew meds when said back to them, and remembered insulin dosing. Called patient's pharmacy to confirm meds. Per patient's pharmacy, pt stopped ramelteon due to side effects and stopped trazodone due to it being ineffective. Only currently takes melatonin for sleep.
--- NOTE | 2023-09-21 14:49 | PC.NURSE ---
repeat trop sent.
[2023-09-21] MEDS: Azithromycin 500 MG in 0.9 % Sodium Chloride 250 ML 125 MG IV (14:50)
[2023-09-21 15:20] LABS: Troponin-I High Sensitivity 25.7 ng/L (<3.5-17.0)
--- NOTE | 2023-09-21 15:34 | PM.IMHP ---
History of Present Illness Date of Service: 09/21/23 Attending physician on admission: Cash Waters Chief Complaint: Chest pain, difficult breathing Pt is a 68-year-old female with a PMH significant for?ESR on HD Mon/Mon, HFrEF, insulin-dependent diabetes type 2, HTN, HLD, GERD, and mood disorder among others who presents to the ED with?shortness of breath and left arm pain. Patient states that she went to attend a clinic appointment earlier today when she felt ?sick? when she got out of the car. Patient states she felt short of breath and lightheaded and dizzy. Ambulance was called and she was brought to the ED for further evaluation for labs were concerning for hyperkalemia of 6.2 and possible fluid overload. Patient states she is on hemodialysis on Monday and Fridays and reports missing Mondays dialysis since no one came to pick her up. Patient also complains of a ?strong, intense pain? in her left arm that radiates from her shoulder to her fingers. Symptoms began 3 days ago and patient denies ever experiencing anything like this before. Denies trauma to the area. Denies nausea, vomiting, abdominal pain. Denies chest pain/pressure, palpitations. In the ED pt was tachypneic up to 24, hypertensive up to 185 or over 75, satting at 100% on RA. Labs were significant for chronic normocytic anemia 10.3/32.8, potassium 6.2, BUN 57, creatinine 4.93, alk-phos 182, troponin 29.1 with repeat flat at 25.7, BNP 3114. No leukocytosis. CXR showed probable central vascular congestion with a small right pleural effusion, increased in size from previous. EKG demonstrated normal sinus rhythm with nonspecific intraventricular conduction block and T-wave abnormality. Pt was treated with albuterol, insulin, Lokelma, ceftriaxone, azithromycin, furosemide and acetaminophen. Pt will be admitted to the hospital for treatment and further evaluation of hyperkalemia and volume overload in the setting of missed dialysis. 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 Normocytic anemia Urinary tract infection due to ESBL Klebsiella Chronic heart failure with preserved ejection fraction (HFpEF) Hypomagnesemia Acute on chronic renal failure Essential hypertension HLD (hyperlipidemia) Non-ST elevated myocardial infarction Diabetes mellitus Congestive heart failure Nonischemic cardiomyopathy Irritable bowel syndrome with diarrhea Gastroparesis GERD (gastroesophageal reflux disease) Family History Father Lung cancer Mother Diabetes HTN (hypertension) Heart disease Sister Diabetes Heart disease Brother Heart disease Son Diabetes Daughter Diabetes Surgical History H/O surgical amputation of finger History of laparoscopic cholecystectomy History of intestinal surgery Hx of eye surgery History of esophagogastroduodenoscopy (EGD) Hx of colonoscopy H/O: hysterectomy Social History Household Members: Family Household Members Other:: SNF Housing: House Do you presently have visiting nurse or other home services: No Unable to assess alcohol history related to: Unknown Alcohol intake: never Comment: report called by previous shift RN Patient Tobacco Use Status: Never used Tobacco Smoked in Last 30 Days: No Second Hand Smoke Exposure: No Use of substances other than those prescribed or required for medical reasons: No Advance Directives: Yes Advance Directives on File: Yes Advance Directives Date on File: 01/04/23 service: No Current occupational status: disabled Meds Allergies Allergy/AdvReac Type Severity Reaction Status Date / Time latex [LATEX] Allergy Intermediate ITCHY Verified 05/25/23 09:18 Home Medications Medication Instructions Recorded Confirmed Last Taken Type aspirin 81 mg tablet,delayed 81 mg PO BEDTIME 06/20/21 09/21/23 09/20/23 History release atorvastatin 80 mg tablet 80 mg PO BEDTIME 06/20/21 09/21/23 09/20/23 History clopidogrel 75 mg tablet 75 mg PO DAILY 06/20/21 09/21/23 09/20/23 History insulin glargine 100 unit/mL (3 20 unit subcut DAILY 03/25/22 09/21/23 09/20/23 History mL) subcutaneous pen (Lantus Solostar U-100 Insulin) amlodipine 5 mg tablet 5 mg PO DAILY 04/20/23 09/21/23 09/20/23 History carvedilol 6.25 mg tablet 6.25 mg PO BIDWM 04/20/23 09/21/23 09/20/23 History magnesium oxide 400 mg (241.3 mg 400 mg PO DAILY 04/20/23 09/21/23 09/20/23 History magnesium) tablet blood sugar diagnostic (Karo InternetTouch #10 ea 05/25/23 Unknown History Ultra Test strips) insulin aspart U-100 100 unit/mL 1 sliding scale dose subcut TIDAC 05/25/23 09/21/23 09/20/23 History (3 mL) subcutaneous pen (Novolog FlexPen U-100 Insulin aspart) lancets 33 gauge (OneTouch Delica #100 ea 05/25/23 Unknown History Plus Lancet) pen needle, diabetic 32 gauge x #1,200 ea 05/25/23 Unknown History (Pentips) albuterol sulfate 90 mcg/actuation 2 inh inhalation Q4H PRN shortness 09/21/23 09/21/23 Unknown History aerosol inhaler of breath or wheezing melatonin 5 mg tablet 10 mg PO BEDTIME 09/21/23 09/21/23 09/20/23 History Physical Exam Vital Signs and Narrative: Vital Signs: Last Vital Signs Temp 97.7 F 09/21/23 13:08 Pulse 74 09/21/23 14:44 Resp 18 09/21/23 14:44 BP 184/75 H 09/21/23 14:44 Pulse Ox 98 09/21/23 14:44 O2 Del Method Room Air 09/21/23 14:44 BMI result Body Mass Index 32.5 Constitutional: Alert, in no acute distress. Mental Status: Oriented to person, place and time. Eyes: Pupils are equal, round, and reactive to light. Ear, Nose, and Throat: Oropharynx clear, mucous membranes moist. Ears and nose without deformities. Trachea midline. Respiratory: Clear to auscultation bilaterally. No wheezing, rales, or rhonchi. Cardiovascular: S1, S2 regular. No murmurs, rubs, or gallops. Gastrointestinal: Abdomen soft, non-tender, non-distended. Normal bowel sounds. Neurologic: Cranial nerves II-XII are grossly intact bilaterally. No focal neurological deficits. Moves all extremities spontaneously. Skin: Warm, dry. Musculoskeletal: No cyanosis or clubbing. Extremities: No edema. Left BKA. Multiple partial finger amputations. Left shoulder and arm diffusely tender to palpation. Preserved active ROM. Psychiatric: Normal mood and affect. Results Labs 09/21/23 11:42 09/21/23 11:42 Labs: Laboratory Results - last 24 hr 09/21/23 12 11:42 12:55 MCV 86.3 MCH 27.1 MCHC 31.4 RDW 14.5 Plt Count 177 MPV 10.7 Immature Gran % (Auto) 1.1 H Neut % (Auto) 72.9 Lymph % (Auto) 15.5 L [place] % (Auto) 7.9 Eos % (Auto) 2.2 Baso % (Auto) 0.4 Lymph # (Auto) 1.3 [place] # (Auto) 0.7 Eos # (Auto) 0.2 Baso # (Auto) 0.0 Abs Immat Gran (auto) 0.09 H Absolute Neuts (auto) 6.2 Absolute Nucleated RBC 0.000 Nucleated RBC % (auto) 0.0 PT 15.5 H INR 1.3 H Anion Gap 17 Estim Creat Clear Calc 8.8 Estimated GFR 9 Random Glucose 258 H Lactic Acid 1.4 Calcium 8.7 Magnesium 2.0 Total Bilirubin 0.2 AST 10 ALT 9 Alkaline Phosphatase 182 H B-Natriuretic Peptide 3014 H Total Protein 7.2 Albumin 3.4 L Lipase 14 Imaging Radiologist's Impressions: Impressions Chest X-Ray 09/21/23 12:12 IMPRESSION: Probable central vascular congestion with a small right pleural effusion, increased in size. Assessment and Plan (1) Acute hyperkalemia: Status: Inactive Plan Pt is a 68-year-old female with a PMH significant for?ESR on HD Mon/Mon, HFrEF, hx of CVA, insulin-dependent diabetes type 2, HTN, HLD, GERD, and mood disorder among others who presents to the ED with?shortness of breath and left arm pain. Pt will be admitted to the hospital for treatment and further evaluation of hyperkalemia and volume overload in the setting of missed dialysis. End-stage renal disease HD Mon/Mon Missed dialysis on Monday Pt previously on HD Mon/Mon/Mon, not clear when or why Monday HD was stopped Nephrology consult Follow BMP Hyperkalemia Initial potassium 6.2, likely secondary to missed hemodialysis on Monday Patient received insulin, albuterol, Lokelma in the ED Repeat potassium 5.0 Patient to receive hemodialysis tomorrow Follow BMP Monitor on telemetry Fluid overload CXR with evidence of central vascular congestion with increased small right pleural effusion BNP elevated at 3014 Likely secondary to missed HD on Monday Received IV Lasix in ED Patient to receive hemodialysis tomorrow Elevated troponins Initial troponin 29.1 with repeat flat at 25.7 Patient asymptomatic, EKG without ischemic changes Likely type 2 in the setting of increased demand Monitor on telemetry Left arm pain Unclear etiology: denies fall/trauma to area, active ROM preserved Analgesics for pain management Insulin-dependent diabetes type 2 Sliding-scale insulin, Lantus Diabetic diet Hx of CVA Continue Plavix, aspirin, statin Full Code Attending:?Dr. Waters DVT Prophylaxis: Heparin Pt will require a hospitalization of at least two nights for treatment of?hyperkalemia and volume overload in the setting of missed dialysis. Patient will require close monitoring of labs and emergent dialysis in the hospital. Quality Stroke Does the patient have a stroke diagnosis?: No VTE Prior VTE?: No VTE Risk Level:: Medical - moderate - high VTE Device Contraindication: Treatment Not Indicated VTE Drug Contraindication: N/A - Med Ordered
[2023-09-21] MEDS: Acetaminophen 325 MG TABLET 975 MG PO (15:37)
[2023-09-21 16:01] LABS: Anion Gap 17 (12-20); Carbon Dioxide 17 mmol/L (22-29); Chloride 109 mmol/L (96-108); Potassium 4.9 mmol/L (3.3-5.1); Sodium 138 mmol/L (135-145)
[2023-09-21 16:04] LABS: Anion Gap 19 (12-20); Blood Urea Nitrogen 56 mg/dL (9-16); Calcium 8.4 mg/dL (8.4-10.2); Carbon Dioxide 17 mmol/L (22-29); Chloride 108 mmol/L (96-108); Creatinine Clr Calc Pharmacy 9.2; Estimated Glomerular Filt Rate 9; Glucose Random 211 mg/dL (60-115); Sodium 139 mmol/L (135-145)
[2023-09-21] MEDS: Heparin Sodium,Porcine 5,000 UNIT/ML VIAL 5000 UNIT SUBCUT (17:31)
[2023-09-22] VITALS: BP 166/65; PULSE 69; RESP 16; TEMP 36.1; O2SAT 95
[2023-09-22] MEDS: Heparin Sodium,Porcine 5,000 UNIT/ML VIAL 5000 UNIT SUBCUT ×2 (01:15→08:22)
[2023-09-22] MEDS: 0.9 % Sodium Chloride Flush 3 ML SYRINGE IVFLUSH ×2 (01:18→08:22)
--- NOTE | 2023-09-22 03:28 | PC.NURSE ---
Pt had 4 beats of Vtach. Pt asymptomatic. MD notified.
[2023-09-22 03:31] VITALS: BP 176/95; PULSE 71; RESP 16; TEMP 36.1; O2SAT 94
[2023-09-22 05:22] LABS: Hematocrit 30.9 % (37.0-47.0); Hemoglobin 9.6 g/dl (12.0-16.0); Mean Corpuscular HGB Conc 31.1 g/dl (31.0-35.0); Mean Corpuscular Hemoglobin 26.4 pg (27.0-33.0); Mean Corpuscular Volume 85.1 fL (80.0-98.0); Mean Platelet Volume 10.3 fL (9.4-12.3); Platelet Count 167 X10*3/uL (160-400); Red Blood Count 3.63 X10*6/uL (4.20-5.50); Red Cell Distribution Width 14.6 % (11.0-16.0); White Blood Count 7.7 X10*3/uL (4.8-10.8)
[2023-09-22 05:56] LABS: Anion Gap 19 (12-20); Blood Urea Nitrogen 59 mg/dL (9-16); Calcium 8.2 mg/dL (8.4-10.2); Carbon Dioxide 16 mmol/L (22-29); Chloride 108 mmol/L (96-108); Creatinine Clr Calc Pharmacy 9.1; Estimated Glomerular Filt Rate 9; Glucose Random 195 mg/dL (60-115); Potassium 5.4 mmol/L (3.3-5.1); Sodium 138 mmol/L (135-145)
[2023-09-22 07:43] LABS: Glucose, Whole Blood 157 mg/dL (60-115)
[2023-09-22 07:46] VITALS: BP 156/65; PULSE 70; RESP 20; TEMP 36.3; O2SAT 95
[2023-09-22] MEDS: Magnesium Oxide 400 MG TABLET PO (08:22)
[2023-09-22] MEDS: carvediloL 6.25 MG TABLET PO (08:22)
[2023-09-22] MEDS: Clopidogrel Bisulfate 75 MG TABLET PO (08:22)
[2023-09-22] MEDS: amLODIPine Besylate 5 MG TABLET PO (08:22)
[2023-09-22] MEDS: Ketorolac Tromethamine 15 MG/ML VIAL IVPUSH (08:27)
--- NOTE | 2023-09-22 09:30 | HO.PM.IMPN ---
Subjective Subjective Date of Service: 09/22/23 Interval History: sob imprvoed Physical Exam Vital Signs: Vital Signs: Last Vital Signs Temp 97.4 F 09/22/23 07:46 Pulse 70 09/22/23 07:46 Resp 20 09/22/23 07:46 BP 156/65 H 09/22/23 07:46 Pulse Ox 95 09/22/23 07:46 O2 Del Method Room Air 09/22/23 07:46 BMI result Body Mass Index 32.5 Psych: Appearance: grossly normal Objective Data Active Medications Acetaminophen (Acetaminophen 325 Mg Tablet) 650 mg PO Q6H PRN PRN Reason: Pain, Mild (Pain Scale 1-3) Amlodipine Besylate (Amlodipine Besylate 5 Mg Tablet) 5 mg PO DAILY [facility]; Protocol Last Admin: 09/22/23 08:22 Dose: 5 mg Documented By: NARDA Aspirin (Aspirin Enteric Coated 81 Mg Tablet.Dr) 81 mg PO BEDTIME [facility] Atorvastatin Calcium (Atorvastatin Calcium 80 Mg Tablet) 80 mg PO BEDTIME [facility] Benzonatate (Benzonatate 100 Mg Capsule) 100 mg PO TID PRN PRN Reason: Cough Carvedilol (Carvedilol 6.25 Mg Tablet) 6.25 mg PO BIDWM [facility]; Protocol Last Admin: 09/22/23 08:22 Dose: 6.25 mg Documented By: NARDA Clopidogrel Bisulfate (Clopidogrel Bisulfate 75 Mg Tablet) 75 mg PO DAILY [facility] Last Admin: 09/22/23 08:22 Dose: 75 mg Documented By: NARDA Docusate Sodium (Docusate Sodium 100 Mg Capsule) 100 mg PO DAILY PRN PRN Reason: Constipation Heparin Sodium (Porcine) (Heparin Sodium,Porcine 5,000 Unit/Ml Vial) 5,000 unit SUBCUT Q8H [facility] Last Admin: 09/22/23 08:22 Dose: 5,000 unit Documented By: NARDA Ketorolac Tromethamine (Ketorolac Tromethamine 15 Mg/Ml Vial) 15 mg IVPUSH Q6H PRN PRN Reason: Pain, Moderate(Pain Scale 4-6) Last Admin: 09/22/23 08:27 Dose: 15 mg Documented By: NARDA Magnesium Oxide (Magnesium Oxide 400 Mg Tablet) 400 mg PO DAILY [facility] Last Admin: 09/22/23 08:22 Dose: 400 mg Documented By: NARDA Melatonin (Melatonin 3 Mg Tablet) 6 mg PO BEDTIME PRN PRN Reason: Insomnia Ondansetron HCl (Ondansetron Hcl 4 Mg/2 Ml Vial) 4 mg IVPUSH Q8H PRN PRN Reason: Nausea and Vomiting Sodium Chloride (0.9 % Sodium Chloride Flush 3 Ml Syringe) 3 ml IVFLUSH QSHIFT [facility] Last Admin: 09/22/23 08:22 Dose: 3 ml Documented By: NARDA Labs 09/22/23 05:14 09/22/23 05:14 Labs: Laboratory Results - last 24 hr 09/21/23 09/21/23 09/21/23 11:42 12:55 15:34 MCV 86.3 MCH 27.1 MCHC 31.4 RDW 14.5 Plt Count 177 MPV 10.7 Immature Gran % (Auto) 1.1 H Neut % (Auto) 72.9 Lymph % (Auto) 15.5 L [place] % (Auto) 7.9 Eos % (Auto) 2.2 Baso % (Auto) 0.4 Lymph # (Auto) 1.3 [place] # (Auto) 0.7 Eos # (Auto) 0.2 Baso # (Auto) 0.0 Abs Immat Gran (auto) 0.09 H Absolute Neuts (auto) 6.2 Absolute Nucleated RBC 0.000 Nucleated RBC % (auto) 0.0 PT 15.5 H INR 1.3 H Anion Gap 17 17 Estim Creat Clear Calc 8.8 Estimated GFR 9 POC Glucose Random Glucose 258 H Lactic Acid 1.4 Calcium 8.7 Magnesium 2.0 Total Bilirubin 0.2 AST 10 ALT 9 Alkaline Phosphatase 182 H B-Natriuretic Peptide 3014 H Total Protein 7.2 Albumin 3.4 L Lipase 14 09/21/23 09/22/23 09/22/23 15:34 05:14 07:39 MCV 85.1 MCH 26.4 L MCHC 31.1 RDW 14.6 Plt Count 167 MPV 10.3 Immature Gran % (Auto) Neut % (Auto) Lymph % (Auto) [place] % (Auto) Eos % (Auto) Baso % (Auto) Lymph # (Auto) [place] # (Auto) Eos # (Auto) Baso # (Auto) Abs Immat Gran (auto) Absolute Neuts (auto) Absolute Nucleated RBC 0.000 Nucleated RBC % (auto) 0.0 PT INR Anion Gap 19 19 Estim Creat Clear Calc 9.2 9.1 Estimated GFR 9 9 POC Glucose 157 H Random Glucose 211 H 195 H Lactic Acid Calcium 8.4 8.2 L Magnesium Total Bilirubin AST ALT Alkaline Phosphatase B-Natriuretic Peptide Total Protein Albumin Lipase Assessment and Plan (1) Hyperkalemia: Status: Acute Plan 68F PMH ESRD, hfref, cva, dm, htn, hld, gerd, mood disorder presented with sob dyspnea due to fluid overload from missed HD in ESRD further complicared by hyperkalemia HD monitor bmp dm basal bolus insulin obesity weight loss hfref coreg history of cva dapl, statin dvt prophylaxis - hep sq full code reason for continued hospitalization:needs hd for sob, hyperkalemia Quality Stroke Does the patient have a stroke diagnosis?: No VTE Prior VTE?: No VTE Risk Level:: Medical - moderate - high VTE Device Contraindication: Treatment Not Indicated VTE Drug Contraindication: N/A - Med Ordered
[2023-09-22 11:41] LABS: Glucose, Whole Blood 174 mg/dL (60-115)
[2023-09-22 12:00] VITALS: BP 172/72; PULSE 65; RESP 20; TEMP 36.2; O2SAT 91
--- NOTE | 2023-09-22 12:25 | P.DS_ITS ---
DS: Providers Provider Date of Service: 09/22/23 Date of admission: 09/21/23 16:19 Primary care physician: Alexys Avila MD Consults: 09/21/23 16:24 Consult to Nephrology Routine Consulting Provider: [facility] Reason for consultation: ESRD on HD M/F, missed Monday's HD DS: Diagnosis Discharge Diagnosis (1) Hyperkalemia: Status: Acute DS: Summary Hospital Course Hospital Course: from initial hpi: 68-year-old female with a PMH significant for?ESR on HD Mon/Mon, HFrEF, insulin- dependent diabetes type 2, HTN, HLD, GERD, and mood disorder among others who presents to the ED with?shortness of breath and left arm pain. Patient states that she went to attend a clinic appointment earlier today when she felt ?sick? when she got out of the car. Patient states she felt short of breath and lightheaded and dizzy. Ambulance was called and she was brought to the ED for further evaluation for labs were concerning for hyperkalemia of 6.2 and possible fluid overload. Patient states she is on hemodialysis on Monday and Fridays and reports missing Mondays dialysis since no one came to pick her up. Patient also complains of a ?strong, intense pain? in her left arm that radiates from her shoulder to her fingers. Symptoms began 3 days ago and patient denies ever experiencing anything like this before. Denies trauma to the area. Denies nausea, vomiting, abdominal pain. Denies chest pain/pressure, palpitations. In the ED pt was tachypneic up to 24, hypertensive up to 185 or over 75, satting at 100% on RA. Labs were significant for chronic normocytic anemia 10.3/32.8, potassium 6.2, BUN 57, creatinine 4.93, alk-phos 182, troponin 29.1 with repeat flat at 25.7, BNP 3114. No leukocytosis. CXR showed probable central vascular congestion with a small right pleural effusion, increased in size from previous. EKG demonstrated normal sinus rhythm with nonspecific intraventricular conduction block and T-wave abnormality. Pt was treated with albuterol, insulin, Lokelma, ceftriaxone, azithromycin, furosemide and acetaminophen. Pt will be admitted to the hospital for treatment and further evaluation of hyperkalemia and volume overload in the setting of missed dialysis. hospital course: Patient was admitted for dyspnea due to fluid overload from missed hemodialysis and end-stage renal disease further complicated by hyperkalemia. She underwent hemodialysis and shortness of breath and hyperkalemia resolved. For diabetes was continue basal bolus insulin. For obesity weight loss recommended. For chronic systolic CHF was continued on Coreg. For history of CVA was continued dual antiplatelet and statin. Patient is feeling better will be discharged home. Time Attestation Discharge coordination time: Greater than 30 minutes Quality: Safe Use of Opioids Does Pt have an Active Cancer Diagnosis on the Problem List?: No Quality: Stroke Does the patient have a stroke diagnosis?: No Physical Exam Vital Signs: Vital Signs: Last Vital Signs Temp 97.4 F 09/22/23 07:46 Pulse 70 09/22/23 07:46 Resp 20 09/22/23 07:46 BP 156/65 H 09/22/23 07:46 Pulse Ox 95 09/22/23 07:46 O2 Del Method Room Air 09/22/23 07:46 BMI result Body Mass Index 32.5 Psych: Appearance: grossly normal DS: Data Data Completed and Pending Completed studies during hospitalization [Text1]: Procedures Detachment at Left Index Finger, Mid, Open Approach (09/15/22) Dilation of Esophagus, Via Natural or Artificial Opening Endoscopic (01/31/22) Dilation of Upper Esophagus, Via Natural or Artificial Opening Endoscopic (08/16/21) Fluoroscopy of Superior Vena Cava using Low Osmolar Contrast, Guidance (12/27/22) Insertion of Infusion Device into Superior Vena Cava, Percutaneous Approach (12/27/22) Introduction of Other Thrombolytic into Peripheral Vein, Percutaneous Approach (06/05/21) Performance of Urinary Filtration, Intermittent, Less than 6 Hours Per Day (07/24/23) Transfusion of Nonautologous Red Blood Cells into Peripheral Vein, Percutaneous Approach (12/27/22) Labs on day of discharge: Laboratory Results - last 24 hr 09/21/23 09/21/23 09/21/23 12:55 14:47 15:34 WBC RBC Hgb Hct MCV MCH MCHC RDW Plt Count MPV Absolute Nucleated RBC Nucleated RBC % (auto) Sodium 138 Potassium Chloride Carbon Dioxide Anion Gap BUN Creatinine Estim Creat Clear Calc Estimated GFR POC Glucose Random Glucose Lactic Acid 1.4 Calcium Troponin I High Sens 25.7 H 09/21/23 09/21/23 09/21/23 15:34 15:34 15:34 WBC RBC Hgb Hct MCV MCH MCHC RDW Plt Count MPV Absolute Nucleated RBC Nucleated RBC % (auto) Sodium 139 Potassium 4.9 D 5.0 Chloride 109 H 108 Carbon Dioxide 17 L Anion Gap BUN Creatinine Estim Creat Clear Calc Estimated GFR POC Glucose Random Glucose Lactic Acid Calcium Troponin I High Sens 09/21/23 09/21/23 09/22/23 15:34 15:34 05:14 WBC 7.7 RBC 3.63 L Hgb 9.6 L Hct 30.9 L MCV 85.1 MCH 26.4 L MCHC 31.1 RDW 14.6 Plt Count 167 MPV 10.3 Absolute Nucleated RBC 0.000 Nucleated RBC % (auto) 0.0 Sodium 138 Potassium 5.4 H Chloride 108 Carbon Dioxide 17 L 16 L Anion Gap 17 19 19 BUN 56 H 59 H Creatinine 4.74 H* 4.76 H* Estim Creat Clear Calc 9.2 9.1 Estimated GFR 9 9 POC Glucose Random Glucose 211 H 195 H Lactic Acid Calcium 8.4 8.2 L Troponin I High Sens 09/22/23 09/22/23 07:39 11:37 WBC RBC Hgb Hct MCV MCH MCHC RDW Plt Count MPV Absolute Nucleated RBC Nucleated RBC % (auto) Sodium Potassium Chloride Carbon Dioxide Anion Gap BUN Creatinine Estim Creat Clear Calc Estimated GFR POC Glucose 157 H 174 H Random Glucose Lactic Acid Calcium Troponin I High Sens Discharge Plan Discharge Anticipated Discharge Date/Time: 09/22/23 12:23 Patient Disposition: Home, Self-Care Discharge Diagnosis: hyperkalemia Referrals: Alexys Avila MD [Primary Care Provider] - 1 Week Discharge Medications: Continued atorvastatin 80 mg tablet 80 mg PO BEDTIME clopidogrel 75 mg tablet 75 mg PO DAILY aspirin 81 mg tablet,delayed release (DR/EC) 81 mg PO BEDTIME insulin glargine [Lantus Solostar U-100 Insulin] 100 unit/mL (3 mL) insulin pen 20 unit subcut DAILY amlodipine 5 mg tablet 5 mg PO DAILY magnesium oxide 400 mg (241.3 mg magnesium) tablet 400 mg PO DAILY carvedilol 6.25 mg tablet 6.25 mg PO BIDWM Rx Instructions: must administer with a meal/food - Take one tablet twice daily melatonin 5 mg tablet 10 mg PO BEDTIME albuterol sulfate 90 mcg/actuation HFA aerosol inhaler 2 inh inhalation Q4H PRN (Reason: shortness of breath or wheezing) (DME) lancets [OneTouch Delica Plus Lancet] 33 gauge misc See Rx Instructions .ROUTE TID Qty: 100 Rx Instructions: As directed (DME) pen needle, diabetic [Pentips] 32 gauge x 5/32 needle See Rx Instructions .ROUTE DIRECTED Qty: 1200 Rx Instructions: As directed (DME) OneTouch Ultra Test Strip See Rx Instructions .ROUTE TID Qty: 10 Rx Instructions: As directed insulin aspart U-100 [Novolog FlexPen U-100 Insulin] 100 unit/mL (3 mL) insulin pen 1 sliding scale dose subcut TIDAC Rx Instructions: 8-12 units SLIDING SCALE Discharge Orders: Discharge Order (Routine); Ordered 09/22/23 Ordered By: Cash Waters Diet: Advance to usual diet Activity on Discharge: As tolerated Stand Alone Forms: Patient Portal Discharge page Care Plan Goals: recovery Health Concerns: esrd Plan of Treatment: hd Assessment: see above
[2023-09-22] MEDS: ondansetron HCL 4 MG/2 ML VIAL IVPUSH (13:07)
--- NOTE | 2023-09-22 14:13 | MHC.CM.PN ---
IMM 09/22/23, Pt has been medically cleared for DC, CM tried several times and several number to contact daughter to inquire if she would transport home. Pt has gone by ambulance in the past, CM set up ambulance for today, pt said there are family members at home.
[2023-09-22 15:34] VITALS: BP 152/67; PULSE 65; RESP 19; TEMP 36.4; O2SAT 93
[2023-09-22 16:04] LABS: Glucose, Whole Blood 238 mg/dL (60-115)
== END 2023-09-22 16:47 | disposition home or self-care (01) | DRG 640 ==
LOC: HO.ED 11:11 → HO.EDOVER 16:32 → HO.IMC 16:46
PROVIDERS: Internal Medicine; Physician Assistant Medical; Admitting Provider Student in an Organized Health Care Education/Training Program; Emergency Provider Emergency Medicine Emergency Medical Services; PCP Internal Medicine; Visit Provider Internal Medicine
DX: E87.70 Fluid overload, unspecified (principal); N18.6 End stage renal disease; I13.2 Hypertensive heart and chronic kidney disease with heart failure and with stage 5 chronic kidney disease, or end stage renal disease; I50.22 Chronic systolic (congestive) heart failure; Z99.2 Dependence on renal dialysis; K21.9 Gastro-esophageal reflux disease without esophagitis; E87.5 Hyperkalemia; E66.9 Obesity, unspecified; Z68.32 Body mass index [BMI] 32.0-32.9, adult; F39 Unspecified mood [affective] disorder; E11.22 Type 2 diabetes mellitus with diabetic chronic kidney disease; Z91.158 Patient's noncompliance with renal dialysis for other reason; Z91.040 Latex allergy status; Z59.82 Transportation insecurity; Z86.73 Personal history of transient ischemic attack (TIA), and cerebral infarction without residual deficits; Z79.4 Long term (current) use of insulin; Z79.02 Long term (current) use of antithrombotics/antiplatelets; Z79.82 Long term (current) use of aspirin; Z79.899 Other long term (current) drug therapy
CPT/HCPCS: 36415; 71046; 80048; 80051; 80053; 82947; 83605; 83690; 83735; 83880; 84484; 85025; 85027; 85610; 87040; 90999; 93005; 94640; 99285; J0456; J0696; J1644; J1885; J1940; J2405

== ENCOUNTER → 2023-09-21 10:46 | Outpatient (BNV) | payer OTHER, SELFPAY | PROVIDERS: Emergency Provider Emergency Medicine Emergency Medical Services; PCP Internal Medicine; Visit Provider Internal Medicine Cardiovascular Disease | DX: R07.9 Chest pain, unspecified (principal); R94.31 Abnormal electrocardiogram [ECG] [EKG] | CPT/HCPCS: 93010 ==

== ENCOUNTER → 2023-09-21 16:19 | Outpatient (BNV) | payer OTHER, SELFPAY | PROVIDERS: Admitting Provider Student in an Organized Health Care Education/Training Program; Emergency Provider Emergency Medicine Emergency Medical Services; PCP Internal Medicine; Visit Provider Student in an Organized Health Care Education/Training Program | DX: E87.5 Hyperkalemia (principal) | CPT/HCPCS: 99223; 99239 ==

== ENCOUNTER 2023-10-07 13:50 | Inpatient (IN) | payer OTHER, SELFPAY ==
[2023-10-07 14:17] VITALS: BP 148/68; PULSE 71; O2SAT 95
[2023-10-07 14:31] VITALS: BP 158/74; PULSE 72; RESP 16; TEMP 36.9; O2SAT 99; BMI 31.2
--- NOTE | 2023-10-07 15:58 | ED.CHESTPAIN ---
HPI - Chest Pain General Chief Complaint: Chest Pain Stated Complaint: CP Time Seen by Provider: 10/07/23 15:51 Source: patient, old records reviewed and safety counselor Mode of arrival: EMS Limitations: no limitations History of Present Illness HPI narrative: 68 yo female with PMH of ESRD on HD MWF, CHF, IDDM, HTN, HLD, GERD, mood disorder, anemia, just admitted here for volulme overload and hyperkalemia end of September in setting of missed HD presents today with c/o palpitations, feeling she cannot breathe when she lays flat, edema in R leg (L aka), fatigue when exertion, chest tightness that started last night. Patient and daughter note a week ago she missed some sessions but went monday and Monday of this week and had a full session. She is eating ethiopian fries during the interview. She has some R flank pain and feels her kidney is jumping MD complaint: chest heaviness (orthopnea, fatigue, AWAD, edema) Onset (ago): day(s) (couple of days but worse last night) Timing of current episode: episodic Prior episodes: Yes Onset: during exertion and other (at night trying to lay flat) Pain location: substernal Pain radiation: none Severity: mild Quality: tightness and heaviness Relieving factors: nothing Exacerbating factors: exertion and supine Context: other (eating salt, drinking water, went to HD on WF but missed some sessions before) Associated symptoms: dyspnea and other (edema, flank pain) Treatment prior to arrival: aspirin and nitroglycerin Related Data Home Medications Medication Instructions Recorded Confirmed aspirin 81 mg tablet,delayed 81 mg PO BEDTIME 06/20/21 09/21/23 release atorvastatin 80 mg tablet 80 mg PO BEDTIME 06/20/21 09/21/23 clopidogrel 75 mg tablet 75 mg PO DAILY 06/20/21 09/21/23 insulin glargine 100 unit/mL (3 20 unit subcut DAILY 03/25/22 09/21/23 mL) subcutaneous pen (Lantus Solostar U-100 Insulin) amlodipine 5 mg tablet 5 mg PO DAILY 04/20/23 09/21/23 carvedilol 6.25 mg tablet 6.25 mg PO BIDWM 04/20/23 09/21/23 magnesium oxide 400 mg (241.3 mg 400 mg PO DAILY 04/20/23 09/21/23 magnesium) tablet blood sugar diagnostic (OneTouch #10 ea 05/25/23 Ultra Test strips) insulin aspart U-100 100 unit/mL 1 sliding scale dose subcut TIDAC 05/25/23 09/21/23 (3 mL) subcutaneous pen (Novolog FlexPen U-100 Insulin aspart) lancets 33 gauge (OneTouch Delica #100 ea 05/25/23 Plus Lancet) pen needle, diabetic 32 gauge x #1,200 ea 05/25/23 (Pentips) albuterol sulfate 90 mcg/actuation 2 inh inhalation Q4H PRN shortness 09/21/23 09/21/23 aerosol inhaler of breath or wheezing melatonin 5 mg tablet 10 mg PO BEDTIME 09/21/23 09/21/23 Allergies Allergy/AdvReac Type Severity Reaction Status Date / Time latex [LATEX] Allergy Intermediate ITCHY Verified 05/25/23 09:18 Review of Systems Review of Systems: Constitutional : No Fever, No Chills ENT/Mouth : No sore throat, No Rhinorrhea, No Swallowing Difficulty Eyes: No Eye Pain, No Swelling, No Redness Cardiovascular : pos Chest Pain, positive SOB, pos Orthopnea, positive Edema Respiratory : No Cough, No Sputum, No Wheezing, positive dyspnea Gastrointestinal : No Nausea, No Vomiting, No Diarrhea, No abdominal Pain, No Hematochezia, No Melena, pos flank pain Genitourinary : No Dysuria, No Urinary Frequency, No Hematuria Musculoskeletal : No joint pain, No Myalgias Skin : No Skin Lesions, No rash Neuro : No Weakness, No Numbness, No Dizziness, No Headache Psych : No Anxiety/Panic, No Depression All other systems reviewed and are negative PMFSH Past Medical History Attestation statement: The following information was validated with the patient. 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 Normocytic anemia Urinary tract infection due to ESBL Klebsiella Chronic heart failure with preserved ejection fraction (HFpEF) Hypomagnesemia Acute on chronic renal failure Essential hypertension HLD (hyperlipidemia) Non-ST elevated myocardial infarction Diabetes mellitus Congestive heart failure Nonischemic cardiomyopathy Irritable bowel syndrome with diarrhea Gastroparesis GERD (gastroesophageal reflux disease) Surgical History H/O surgical amputation of finger History of laparoscopic cholecystectomy History of intestinal surgery Hx of eye surgery History of esophagogastroduodenoscopy (EGD) Hx of colonoscopy H/O: hysterectomy Family History Family History Father Lung cancer Mother Diabetes HTN (hypertension) Heart disease Sister Diabetes Heart disease Brother Heart disease Son Diabetes Daughter Diabetes Social History Social History Household Members: Family and Children Household Members Other:: SNF Housing: House Do you presently have visiting nurse or other home services: No Unable to assess alcohol history related to: Unknown Alcohol intake: never Comment: report called by previous shift RN Patient Tobacco Use Status: Never used Tobacco Second Hand Smoke Exposure: No Advance Directives: Yes Advance Directives on File: Yes Advance Directives Date on File: 01/04/23 service: No Current occupational status: disabled Physical Exam Vital Signs: Vital Signs: Last Vital Signs Temp 98.4 F 10/07/23 18:05 Pulse 74 10/07/23 18:05 Resp 12 10/07/23 18:05 BP 155/51 H 10/07/23 18:05 Pulse Ox 95 10/07/23 18:05 O2 Del Method Room Air 10/07/23 18:05 BMI result Body Mass Index 31.2 Appearance: Alert. Oriented X3. No acute distress. No distress, eating salazar's appears easily short of breath with movements. Eyes: Pupils equal, round and reactive to light. ENT: Pharynx normal. Neck: Normal inspection. Neck supple. CVS: Normal heart rate and rhythm. Pulses normal. Respiratory: No respiratory distress. Breath sounds rales both bases. Abdomen: Soft and nontender. Skin: Skin warm and dry. pale skin color. Normal skin turgor. Extremities: 2+ pitting R lower extremity edema. Neuro: Oriented X 3. No motor deficit. No sensory deficit. Medications Administered Discontinued Medications Generic Name Dose Route Start Last Admin Trade Name Wang PRN Reason Stop Dose Admin Furosemide 80 mg 10/07/23 16:34 10/07/23 17:07 Furosemide 100 Mg/10 Ml Vial IVPUSH 10/07/23 16:35 80 mg ONCE ONE Administration Protocol Medical Decision Making Medical Decision Making MDM Narrative: 68 yo female with PMH of ESRD on HD MWF, CHF, IDDM, HTN, HLD, GERD, mood disorder, anemia, here with chest tightness for a day - orthopnea, edema, AWAD and edema/JVD concerning for volume overload as she eats [employer] ethiopian fries. She states she is compliant with HD on WF but did miss some other sessions. She will need labs, EKG, trop x 1, BNP - trend. IV lasix, CT scan of R kidney has hx of UTI/GNR and UA/straight cath. Anticipate renal consult and admission for HD given signs of volume overload I do not think she will be able to manage until Monday. Differential Diagnosis Differential Diagnoses: The differential diagnosis associated with the presentation includes edema, CHF, atypical ACS, renal stone, UTI Admission/Observation Consideration of admission/observation: Escalation of care including admission/observation considered admit given increased BNP, CXR with edema symptomatic - admit for HD Consult Healthcare Provider Management of the patient was discussed with: Hospitalist (will admit) and Baggage Smasher (Giorgi aware will put her on list tomorrow) Lab Data [facility] Lab Attestation statement: I reviewed the patient's lab results. 10/07/23 15:32 10/07/23 15:32 Labs: Lab Results 10/07/23 10/07/23 10/07/23 Range/Units 15:32 16:09 17:47 WBC 8.9 (4.8-10.8) X10*3/uL RBC 3.84 L (4.20-5.50) X10*6/uL Hgb 10.5 L (12.0-16.0) g/dl Hct 33.3 L (37.0-47.0) % MCV 86.7 (80.0-98.0) fL MCH 27.3 (27.0-33.0) pg MCHC 31.5 (31.0-35.0) g/dl RDW 14.6 (11.0-16.0) % Plt Count 129 L (160-400) X10*3/uL MPV 10.4 (9.4-12.3) fL Immature Gran % (Auto) 0.3 (0.0-0.4) % Neut % (Auto) 72.0 (45-73) % Lymph % (Auto) 18.2 L (20-40) % [place] % (Auto) 7.4 (2-11) % Eos % (Auto) 1.9 (0-4) % Baso % (Auto) 0.2 (0-2) % Lymph # (Auto) 1.6 (1.2-4.9) X10*3/uL [place] # (Auto) 0.7 (0.1-1.2) X10*3/uL Eos # (Auto) 0.2 (0.0-0.4) X10*3/uL Baso # (Auto) 0.0 (0.0-0.2) X10*3/uL Abs Immat Gran (auto) 0.03 (0.00-0.03) X10*3/uL Absolute Neuts (auto) 6.4 (2.0-8.3) x10*3/uL Absolute Nucleated RBC 0.000 (0.0-0.012) X10*3/uL Nucleated RBC % (auto) 0.0 (0.0-0.2) /100WBC PT 14.4 H (11.1-13.3) SEC INR 1.2 H (0.9-1.1) Sodium 138 (135-145) mmol/L Potassium 4.7 (3.3-5.1) mmol/L Chloride 98 (96-108) mmol/L Carbon Dioxide 31 H (22-29) mmol/L Anion Gap 14 (12-20) BUN 17 H (9-16) mg/dL Creatinine 2.48 H (0.5-1.4) mg/dL Estim Creat Clear Calc 18.7 Estimated GFR 19 POC Glucose 172 H (60-115) mg/dL Random Glucose 198 H (60-115) mg/dL Calcium 8.4 (8.4-10.2) mg/dL Magnesium 2.0 (1.6-2.6) mg/dL Total Bilirubin 0.3 (0.0-1.0) mg/dL AST 9 (5-31) U/L ALT 6 (0-31) U/L Alkaline Phosphatase 156 H (39-117) U/L Troponin I High Sens 27.2 H (<3.5-17.0) ng/L B-Natriuretic Peptide 4281 H (<100) pg/mL Total Protein 6.6 (6.5-8.0) g/dL Albumin 3.1 L (3.5-5.0) g/dL Urine Color Yellow Urine Appearance Clear Urine pH 8.0 (5.0-9.0) Ur Specific [place] 1.025 (1.005-1.025) Urine Protein >=1000 (4+) H (Neg-Trace) mg/dL Urine Glucose (UA) 500 H (Negative) mg/dL Urine Ketones Negative (Negative) mg/dL Urine Blood Negative (Negative) Urine Nitrite Negative (Negative) Ur Leukocyte Esterase Negative (Negative) Urine RBC 3-5 H (0-2) /HPF Urine WBC 0-5 (0-5) /HPF Ur Squamous Epith Cells 0-2 (0-2) /HPF Urine Bacteria None Seen (None Seen) Hyaline Casts 3-5 (0-2) /LPF Influenza Type A (PCR) NEGATIVE (Negative) Influenza Type B (PCR) NEGATIVE (Negative) RSV RNA Qual (PCR) NEGATIVE (Negative) SARS-CoV-2 RNA (RT-PCR) NEGATIVE (Negative) Independent Interpretation I performed an independent interpretation of an: EKG, Plain X-Ray (edema) and CT Scan (improved) Interpretation: Rate: 72 Rhythm: NSR [place]: left Normal P waves. Normal DONNIE. Normal QRS complex. ST T wave : no RICKY, inverted t waves inf and V4-V6 qTC: 512 prior studies: no sig change from priors The study has been interpreted contemporaneously by me. . Radiology Impression Discussion of test interpretation with radiology: I have reviewed the radiologist's reading. Independent Historian Clinical information obtained from an independent historian. History obtained from or confirmed by: EMS and Other (daughter) External Record Review External record reviewed: Inpatient record Discharge Plan Discharge Clinical Impression: Atypical chest pain Volume overload Qualifiers: Hypervolemia type: unspecified Qualified Code(s): E87.70 - Fluid overload, unspecified Pulmonary edema Qualifiers: Chronicity: acute Qualified Code(s): J81.0 - Acute pulmonary edema Patient Disposition: Admitted As Inpatient
[2023-10-07 18:05] VITALS: BP 155/51; PULSE 74; RESP 12; TEMP 36.9; O2SAT 95
--- NOTE | 2023-10-07 19:05 | PM.IMHP ---
History of Present Illness Date of Service: 10/07/23 Chief Complaint: Dyspnea This is a 68-year-old female with pertinent history of ESRD on hemodialysis (M/W/F), congestive heart failure with reduced ejection fraction, insulin-dependent type 2 diabetes mellitus, mixed hyperlipidemia, essential hypertension, history of CVA, mood disorder who presents to the emergency department for evaluation of dyspnea. Patient states it started 1 day prior to presentation. Dyspnea is worse when lying flat. Does have a history of missed hemodialysis sessions in the past. States underwent hemodialysis 1 day prior to presentation. Also has edema of right lower extremity. Patient states along with dyspnea, she had midsternal chest discomfort with resolved without intervention. She was seen eating Japanese fries in the ER. No fever, chills, cough, palpitations, abdominal pain, changes in urinary or bowel habits. In the emergency department, imaging with cardiomegaly, pulmonary edema and elevated BNP. Review of Systems Constitutional: Constitutional: Reports no additional constitutional complaints Cardiovascular: Cardiovascular: Reports chest pain, Reports dyspnea on exertion and Reports orthopnea Respiratory: Respiratory: Reports dyspnea on exertion Gastrointestinal: Gastrointestinal: Reports no additional gastrointestinal complaints Genitourinary: Genitourinary: Reports no additional female genitourinary complaints [facility] Medical History Dialysis patient, noncompliant Chronic kidney disease Thrombocytopenia CKD (chronic kidney disease) stage 4, GFR 15-29 ml/min End stage renal disease Constipation 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 Normocytic anemia Urinary tract infection due to ESBL Klebsiella Chronic heart failure with preserved ejection fraction (HFpEF) Hypomagnesemia Acute on chronic renal failure Essential hypertension HLD (hyperlipidemia) Non-ST elevated myocardial infarction Diabetes mellitus Congestive heart failure Nonischemic cardiomyopathy Irritable bowel syndrome with diarrhea Gastroparesis GERD (gastroesophageal reflux disease) Family History Father Lung cancer Mother Diabetes HTN (hypertension) Heart disease Sister Diabetes Heart disease Brother Heart disease Son Diabetes Daughter Diabetes Surgical History H/O surgical amputation of finger History of laparoscopic cholecystectomy History of intestinal surgery Hx of eye surgery History of esophagogastroduodenoscopy (EGD) Hx of colonoscopy H/O: hysterectomy Social History Household Members: Family and Children Household Members Other:: SNF Housing: House Do you presently have visiting nurse or other home services: No Unable to assess alcohol history related to: Unknown Alcohol intake: never Comment: report called by previous shift RN Patient Tobacco Use Status: Never used Tobacco Second Hand Smoke Exposure: No Advance Directives: Yes Advance Directives on File: Yes Advance Directives Date on File: 01/04/23 service: No Current occupational status: disabled Meds Allergies Allergy/AdvReac Type Severity Reaction Status Date / Time latex [LATEX] Allergy Intermediate ITCHY Verified 05/25/23 09:18 Home Medications Medication Instructions Recorded Confirmed Last Taken Type aspirin 81 mg tablet,delayed 81 mg PO BEDTIME 06/20/21 09/21/23 09/20/23 History release atorvastatin 80 mg tablet 80 mg PO BEDTIME 06/20/21 09/21/23 09/20/23 History clopidogrel 75 mg tablet 75 mg PO DAILY 06/20/21 09/21/23 09/20/23 History insulin glargine 100 unit/mL (3 20 unit subcut DAILY 03/25/22 09/21/23 09/20/23 History mL) subcutaneous pen (Lantus Solostar U-100 Insulin) amlodipine 5 mg tablet 5 mg PO DAILY 04/20/23 09/21/23 09/20/23 History carvedilol 6.25 mg tablet 6.25 mg PO BIDWM 04/20/23 09/21/23 09/20/23 History magnesium oxide 400 mg (241.3 mg 400 mg PO DAILY 04/20/23 09/21/23 09/20/23 History magnesium) tablet blood sugar diagnostic (OneTouch #10 ea 05/25/23 Unknown History Ultra Test strips) insulin aspart U-100 100 unit/mL 1 sliding scale dose subcut TIDAC 05/25/23 09/21/23 09/20/23 History (3 mL) subcutaneous pen (Novolog FlexPen U-100 Insulin aspart) lancets 33 gauge (OneTouch Delica #100 ea 05/25/23 Unknown History Plus Lancet) pen needle, diabetic 32 gauge x #1,200 ea 05/25/23 Unknown History (Pentips) albuterol sulfate 90 mcg/actuation 2 inh inhalation Q4H PRN shortness 09/21/23 09/21/23 Unknown History aerosol inhaler of breath or wheezing melatonin 5 mg tablet 10 mg PO BEDTIME 09/21/23 09/21/23 09/20/23 History Physical Exam Vital Signs and Narrative: Vital Signs: Last Vital Signs Temp 98.4 F 10/07/23 18:05 Pulse 74 10/07/23 18:05 Resp 12 10/07/23 18:05 BP 155/51 H 10/07/23 18:05 Pulse Ox 95 10/07/23 18:05 O2 Del Method Room Air 10/07/23 18:05 BMI result Body Mass Index 31.2 Elderly female lying in bed in mild distress Neck supple, JVD + Regular rate and rhythm, S1-S2 heard Bilateral crackles appreciated Abdomen soft nontender, no guarding, no rigidity, no CVA tenderness Patient is awake, alert and oriented to self, place, time and person ; no focal motor deficit Psych: Normal mood Right lower extremity pedal edema, left AKA Results Labs 10/07/23 15:32 10/07/23 15:32 Labs: Laboratory Results - last 24 hr 10/07/23 10/07/23 10/07/23 15:32 16:09 17:47 MCV 86.7 MCH 27.3 MCHC 31.5 RDW 14.6 Plt Count 129 L MPV 10.4 Immature Gran % (Auto) 0.3 Neut % (Auto) 72.0 Lymph % (Auto) 18.2 L [place] % (Auto) 7.4 Eos % (Auto) 1.9 Baso % (Auto) 0.2 Lymph # (Auto) 1.6 [place] # (Auto) 0.7 Eos # (Auto) 0.2 Baso # (Auto) 0.0 Abs Immat Gran (auto) 0.03 Absolute Neuts (auto) 6.4 Absolute Nucleated RBC 0.000 Nucleated RBC % (auto) 0.0 PT 14.4 H INR 1.2 H Anion Gap 14 Estim Creat Clear Calc 18.7 Estimated GFR 19 POC Glucose 172 H Random Glucose 198 H Calcium 8.4 Magnesium 2.0 Total Bilirubin 0.3 AST 9 ALT 6 Alkaline Phosphatase 156 H B-Natriuretic Peptide 4281 H Total Protein 6.6 Albumin 3.1 L Urine Color Yellow Urine Appearance Clear Urine pH 8.0 Ur Specific [place] 1.025 Urine Protein >=1000 (4+) H Urine Glucose (UA) 500 H Urine Ketones Negative Urine Blood Negative Urine Nitrite Negative Ur Leukocyte Esterase Negative Urine RBC 3-5 H Urine WBC 0-5 Ur Squamous Epith Cells 0-2 Urine Bacteria None Seen Hyaline Casts 3-5 Influenza Type A (PCR) NEGATIVE Influenza Type B (PCR) NEGATIVE RSV RNA Qual (PCR) NEGATIVE SARS-CoV-2 RNA (RT-PCR) NEGATIVE Imaging Radiologist's Impressions: Impressions Chest X-Ray 10/07/23 14:50 IMPRESSION: 1. Cardiomegaly with volume overload. 2. Right jugular dialysis catheter tip is in mid distal SVC. Abdomen/Pelvis CT 10/07/23 17:47 IMPRESSION: 1. No evidence of nephrolithiasis or hydroureteronephrosis. 2. Resolution of emphysematous cystitis. 3. Growing right sided pleural effusion and atelectasis in the right middle lobe. 4. Mild anasarca. Fleischner guidelines were followed. Assessment and Plan (1) Pulmonary edema: Qualifiers: Chronicity: acute Qualified Code(s): J81.0 - Acute pulmonary edema Status: Acute (2) Volume overload: Qualifiers: Hypervolemia type: unspecified Qualified Code(s): E87.70 - Fluid overload, unspecified Status: Acute Plan This is a 68-year-old female with pertinent history of ESRD on hemodialysis (M/W/F), congestive heart failure with reduced ejection fraction, insulin-dependent type 2 diabetes mellitus, mixed hyperlipidemia, essential hypertension, history of CVA, mood disorder who presents to the emergency department for evaluation of dyspnea. #. Acute respiratory distress with anasarca due to acute on chronic congestive heart failure with reduced ejection fraction, due to dietary noncompliance #. ESRD on hemodialysis -IV Lasix administered in the ER. Nephrology consulted with plans for hemodialysis in a.m. Patient states she underwent hemodialysis session on 10/06 but does have history of missed dialysis sessions in the past. #.? Insulin-dependent type 2 diabetes mellitus with hyperglycemia:? Reduce basal insulin.? Initiating Accu-Cheks with sliding scale insulin before meals and at bedtime #. Atypical chest discomfort: Trend troponin. Low concern for ACS #.? Essential hypertension: Conintue home antihypertensives #.? History of CVA: on plavix, aspirin and high-intensity statin #. Mood disorder. Continue mood stabilizers #. Obesity: Counseled regarding diet and weight loss #. Anemia of chronic kidney disease Med rec pending DVT prophylaxis: Heparin Full code Low-salt diet Quality Stroke Does the patient have a stroke diagnosis?: No VTE Prior VTE?: No VTE Risk Level:: Medical - moderate - high VTE Device Contraindication: Treatment Not Indicated VTE Drug Contraindication: N/A - Med Ordered
--- NOTE | 2023-10-07 19:23 | PC.NURSE ---
assumed care of pt at this time. Dr. Stafford at bedside for admission eval.
--- NOTE | 2023-10-07 20:49 | MHC.EDTECH ---
Per ED physician note, Jewels made consult to Nephro. Nephro is aware of consult.
[2023-10-07 22:19] VITALS: PULSE 69
--- NOTE | 2023-10-07 23:06 | PC.NURSE ---
pt transfered from Main ED to overflow at this time. pt placed in hospital bed, repositioned. pt denies pain, respirations even and unlabored. lights dimmed for comfort.
[2023-10-08 06:00] VITALS: BP 164/83; PULSE 70; RESP 15; TEMP 36.8; O2SAT 94
[2023-10-08 06:47] LABS: Anion Gap 17 (12-20); Blood Urea Nitrogen 24 mg/dL (9-16); Calcium 8.4 mg/dL (8.4-10.2); Carbon Dioxide 26 mmol/L (22-29); Chloride 100 mmol/L (96-108); Creatinine Clr Calc Pharmacy 16.5; Estimated Glomerular Filt Rate 17; Glucose Random 165 mg/dL (60-115); Potassium 5.2 mmol/L (3.3-5.1); Sodium 138 mmol/L (135-145)
--- NOTE | 2023-10-08 06:47 | PC.NURSE ---
Acquired care at 2300. Pt is lying in bed. calm and cooperative. right hand fingers has a small bleed. skin are dry. skin care provided. Right chest permacath in place. Incontinent with urine. Given tyelnol for back pain.
--- NOTE | 2023-10-08 07:54 | PHA.MEDREC ---
Pharmacy Consult ? Medication Reconciliation Pharmacy has completed the medication reconciliation. Patient is poor historian. Used patients last discharge packet. Per note of last med rec note patient pt stopped ramelteon due to side effects and stopped trazodone due to it being ineffective. Only currently takes melatonin for sleep .
--- NOTE | 2023-10-08 08:03 | HO.PM.IMPN ---
Subjective Subjective Date of Service: 10/08/23 Interval History: Seen in follow up for anasarca, CHF exacerbation, ESRD INterval history: Reports sob. No cp. No overnight events Review of Systems Review of Systems: Yes all other systems are reviewed and are negative Physical Exam Vital Signs: Vital Signs: Last Vital Signs Temp 98.3 F 10/08/23 06:00 Pulse 70 10/08/23 06:00 Resp 15 10/08/23 06:00 BP 164/83 H 10/08/23 06:00 Pulse Ox 94 10/08/23 06:00 O2 Del Method Room Air 10/08/23 06:00 BMI result Body Mass Index 31.2 Constitutional - Awake and Alert, No apparent distress Eyes - PERRLA, EOMI Neck- +jvd Cardiovascular - S1S2, RRR, RLE edema Respiratory - Normal lung expansion, Normal respiratory effort, No respiratory distress, bibasilar crackles Gastrointestinal - NT / ND; +BS; No rebound or guarding Extremities - no calf tenderness bilaterally, no swelling, s/p L BKA Skin - Warm/Dry Neurological - Alert & oriented x3 Psychological - Appropriate affect Objective Data Active Medications Acetaminophen (Acetaminophen 325 Mg Tablet) 650 mg PO Q6H PRN PRN Reason: Pain, Mild (Pain Scale 1-3) Last Admin: 10/08/23 04:56 Dose: 650 mg Documented By: KAMILAH Dextrose (Dextrose 50 % 25 Gm/50 Ml Syringe) 25 gm IVPUSH Q15M PRN; Protocol PRN Reason: per Hypoglycemia Standing Ord. Glucose (Glucose Gel 15 Gm Gel..Gram.) 15 gm PO Q15M PRN; Protocol PRN Reason: per Hypoglycemia Standing Ord. Heparin Sodium (Porcine) (Heparin Sodium,Porcine 5,000 Unit/Ml Vial) 5,000 unit SUBCUT Q12H [facility] Last Admin: 10/07/23 22:15 Dose: 5,000 unit Documented By: BRAD Insulin Human Lispro (Insulin Lispro 100 Unit/Ml 3 Ml Vial) 0 unit SUBCUT QIDACHS [facility]; Protocol Last Admin: 10/07/23 21:14 Dose: Not Given Documented By: BRAD Non-Admin Reason: No Insulin Coverage Melatonin (Melatonin 3 Mg Tablet) 6 mg PO BEDTIME PRN PRN Reason: Insomnia Ondansetron HCl (Ondansetron Hcl 4 Mg/2 Ml Vial) 4 mg IVPUSH Q8H PRN PRN Reason: Nausea and Vomiting Sodium Chloride (0.9 % Sodium Chloride Flush 3 Ml Syringe) 3 ml IVFLUSH QSHIFT [facility] Last Admin: 10/08/23 00:21 Dose: Not Given Documented By: KAMILAH Non-Admin Reason: Patient Asleep Labs 10/08/23 06:16 10/08/23 06:16 Labs: Laboratory Results - last 24 hr 10/07/23 10/07/23 10/07/23 15:32 16:09 17:47 MCV 86.7 MCH 27.3 MCHC 31.5 RDW 14.6 Plt Count 129 L MPV 10.4 Immature Gran % (Auto) 0.3 Neut % (Auto) 72.0 Lymph % (Auto) 18.2 L Terry % (Auto) 7.4 Eos % (Auto) 1.9 Baso % (Auto) 0.2 Lymph # (Auto) 1.6 Terry # (Auto) 0.7 Eos # (Auto) 0.2 Baso # (Auto) 0.0 Abs Immat Gran (auto) 0.03 Absolute Neuts (auto) 6.4 Absolute Nucleated RBC 0.000 Nucleated RBC % (auto) 0.0 PT 14.4 H INR 1.2 H Anion Gap 14 Estim Creat Clear Calc 18.7 Estimated GFR 19 POC Glucose 172 H Random Glucose 198 H Calcium 8.4 Magnesium 2.0 Total Bilirubin 0.3 AST 9 ALT 6 Alkaline Phosphatase 156 H B-Natriuretic Peptide 4281 H Total Protein 6.6 Albumin 3.1 L Urine Color Yellow Urine Appearance Clear Urine pH 8.0 Ur Specific [place] 1.025 Urine Protein >=1000 (4+) H Urine Glucose (UA) 500 H Urine Ketones Negative Urine Blood Negative Urine Nitrite Negative Ur Leukocyte Esterase Negative Urine RBC 3-5 H Urine WBC 0-5 Ur Squamous Epith Cells 0-2 Urine Bacteria None Seen Hyaline Casts 3-5 Influenza Type A (PCR) NEGATIVE Influenza Type B (PCR) NEGATIVE RSV RNA Qual (PCR) NEGATIVE SARS-CoV-2 RNA (RT-PCR) NEGATIVE 10/07/23 10/08/23 21:12 06:16 MCV 87.8 MCH 27.3 MCHC 31.1 RDW 14.7 Plt Count 152 L MPV 11.6 Immature Gran % (Auto) 0.3 Neut % (Auto) 68.2 Lymph % (Auto) 21.6 Terry % (Auto) 7.5 Eos % (Auto) 2.2 Baso % (Auto) 0.2 Lymph # (Auto) 2.0 Terry # (Auto) 0.7 Eos # (Auto) 0.2 Baso # (Auto) 0.0 Abs Immat Gran (auto) 0.03 Absolute Neuts (auto) 6.3 Absolute Nucleated RBC 0.000 Nucleated RBC % (auto) 0.0 PT INR Anion Gap 17 Estim Creat Clear Calc 16.5 Estimated GFR 17 POC Glucose 123 H Random Glucose 165 H Calcium 8.4 Magnesium Total Bilirubin AST ALT Alkaline Phosphatase B-Natriuretic Peptide Total Protein Albumin Urine Color Urine Appearance Urine pH Ur Specific [place] Urine Protein Urine Glucose (UA) Urine Ketones Urine Blood Urine Nitrite Ur Leukocyte Esterase Urine RBC Urine WBC Ur Squamous Epith Cells Urine Bacteria Hyaline Casts Influenza Type A (PCR) Influenza Type B (PCR) RSV RNA Qual (PCR) SARS-CoV-2 RNA (RT-PCR) Assessment and Plan (1) Pulmonary edema: Status: Acute (2) Atypical chest pain: Status: Acute (3) Volume overload: Status: Acute Plan This is a 68-year-old female with pertinent history of ESRD on hemodialysis (M/W/F), congestive heart failure with reduced ejection fraction, insulin-dependent type 2 diabetes mellitus, mixed hyperlipidemia, essential hypertension, history of CVA, mood disorder admitted for acute repspiratory distress due to anasarca in the setting of acute CHF exacerbation/ESRD #Acute respiratory distress with anasarca due to acute on chronic congestive heart failure with reduced ejection fraction, due to dietary noncompliance #ESRD on hemodialysis MF -IV 40mg daily -strict I&O -Daily weight -Cardiac/low sodium diet -Nephrology consult- plan for HD #Insulin-dependent type 2 diabetes mellitus with hyperglycemia -dose adjusted basal insulin -POC glucose, diabetic diet -Humalog on sliding scale Reduce basal insulin #Atypical chest discomfort: -troponins flat, ekg without ischemic changes #Essential hypertension -Continue home antihypertensives #History of CVA -cotninue plavix, aspirin, high-intensity statin #Mood disorder -Continue mood stabilizers #Obesity -Counseled regarding diet and weight loss #Anemia of chronic kidney disease -h/h baseline DVT prophylaxis: Heparin Full code Cardiac/diabetic diet Pt requires inpt stay at least 2 midnights due to anasarca secondary to ESRD and decompensation of CHF requiring IV diuresis and HD Quality Stroke Does the patient have a stroke diagnosis?: No VTE Prior VTE?: No VTE Risk Level:: Medical - moderate - high VTE Device Contraindication: Treatment Not Indicated VTE Drug Contraindication: N/A - Med Ordered
--- NOTE | 2023-10-08 09:52 | PC.NURSE ---
pt was incontinent of urine. pt ate 75% of breakfast and drank 118ml of juice
[2023-10-08 09:55] VITALS: BMI 31.0
--- NOTE | 2023-10-08 09:57 | MHC.EDTECH ---
AM care done , bed lined change. pure wick place for intake and output . RN aware
--- NOTE | 2023-10-08 12:33 | PC.NURSE ---
pt moved to OV 06. Previous room suction is not working. suction needed for Purewik and I&O.
[2023-10-08 14:39] VITALS: BP 149/66; PULSE 75; RESP 14; TEMP 36.2; O2SAT 98
--- NOTE | 2023-10-08 15:12 | PC.NURSE ---
pt reported abdomen pain and says she is unable to poop. wasnt able to poop with bedpan. PA notified, miralax given per order
--- NOTE | 2023-10-08 16:01 | PC.NURSE ---
held sevelamer to admin with a meal
[2023-10-08 16:21] VITALS: BP 171/88; PULSE 74; RESP 20; TEMP 36.7; O2SAT 92
[2023-10-08 20:00] VITALS: BP 175/67; PULSE 65; RESP 20; TEMP 36.1; O2SAT 96
[2023-10-09 03:58] VITALS: BP 164/74; PULSE 71; RESP 16; TEMP 36.9; O2SAT 93
[2023-10-09 07:27] VITALS: BP 153/67; PULSE 61; RESP 18; TEMP 36.5; O2SAT 99
--- NOTE | 2023-10-09 10:46 | HO.PM.IMPN ---
Subjective Subjective Date of Service: 10/09/23 Interval History: Seen in follow up for anasarca, CHF exacerbation, ESRD INterval history: Reports ongoing sob, nonradiating retrosternal chest pressure. No orthopnea, pnd. No overnight events, VSS Review of Systems Review of Systems: Yes all other systems are reviewed and are negative Physical Exam Vital Signs: Vital Signs: Last Vital Signs Temp 97.7 F 10/09/23 07:27 Pulse 61 10/09/23 07:27 Resp 18 10/09/23 07:27 BP 153/67 H 10/09/23 07:27 Pulse Ox 99 10/09/23 07:27 O2 Del Method Room Air 10/09/23 07:27 BMI result Body Mass Index 31.0 Constitutional - Awake and Alert, No apparent distress Eyes - PERRLA, EOMI Neck - +JVD Cardiovascular - S1S2, RRR, No edema. No diaphoresis Respiratory - Normal lung expansion, Normal respiratory effort, No respiratory distress, scattered crackles bilaterally Gastrointestinal - NT / ND; +BS; No rebound or guarding Extremities - no calf tenderness, no swelling, left bka Skin - Warm/Dry Neurological - Alert & oriented x3 Psychological - Appropriate affect Objective Data Active Medications Acetaminophen (Acetaminophen 325 Mg Tablet) 650 mg PO Q6H PRN PRN Reason: Pain, Mild (Pain Scale 1-3) Last Admin: 10/08/23 04:56 Dose: 650 mg Documented By: KAMILAH Albuterol Sulfate (Albuterol Sulfate 90 Mcg 8 Gm Inhaler) 2 puff INHALE RQ4H PRN PRN Reason: shortness of breath or wheezing Amlodipine Besylate (Amlodipine Besylate 5 Mg Tablet) 5 mg PO DAILY [facility]; Protocol Last Admin: 10/09/23 07:58 Dose: 5 mg Documented By: LEONARDO Aspirin (Aspirin Enteric Coated 81 Mg Tablet.) 81 mg PO BEDTIME [facility] Last Admin: 10/08/23 21:54 Dose: 81 mg Documented By: PRINCESS Atorvastatin Calcium (Atorvastatin Calcium 80 Mg Tablet) 80 mg PO BEDTIME [facility] Last Admin: 10/08/23 21:54 Dose: 80 mg Documented By: PRINCESS Carvedilol (Carvedilol 6.25 Mg Tablet) 6.25 mg PO BIDWM [facility]; Protocol Last Admin: 10/09/23 07:58 Dose: 6.25 mg Documented By: LEONARDO Clopidogrel Bisulfate (Clopidogrel Bisulfate 75 Mg Tablet) 75 mg PO DAILY [facility] Last Admin: 10/09/23 07:59 Dose: 75 mg Documented By: LEONARDO Dextrose (Dextrose 50 % 25 Gm/50 Ml Syringe) 25 gm IVPUSH Q15M PRN; Protocol PRN Reason: per Hypoglycemia Standing Ord. Furosemide (Furosemide 40 Mg/4 Ml Vial) 40 mg IVPUSH DAILY [facility]; Protocol Last Admin: 10/09/23 07:59 Dose: 40 mg Documented By: LEONARDO Glucose (Glucose Gel 15 Gm Gel..Gram.) 15 gm PO Q15M PRN; Protocol PRN Reason: per Hypoglycemia Standing Ord. Heparin Sodium (Porcine) (Heparin Sodium,Porcine 5,000 Unit/Ml Vial) 5,000 unit SUBCUT Q12H [facility] Last Admin: 10/09/23 07:59 Dose: 5,000 unit Documented By: LEONARDO Insulin Human Lispro (Insulin Lispro 100 Unit/Ml 3 Ml Vial) 0 unit SUBCUT QIDACHS [facility]; Protocol Last Admin: 10/09/23 08:03 Dose: Not Given Documented By: LEONARDO Non-Admin Reason: No Insulin Coverage Magnesium Oxide (Magnesium Oxide 400 Mg Tablet) 400 mg PO DAILY [facility] Last Admin: 10/09/23 07:59 Dose: 400 mg Documented By: LEONARDO Melatonin (Melatonin 3 Mg Tablet) 6 mg PO BEDTIME PRN PRN Reason: Insomnia Melatonin (Melatonin 3 Mg Tablet) 9 mg PO BEDTIME [facility] Last Admin: 10/08/23 21:54 Dose: 9 mg Documented By: PRINCESS Ondansetron HCl (Ondansetron Hcl 4 Mg/2 Ml Vial) 4 mg IVPUSH Q8H PRN PRN Reason: Nausea and Vomiting Polyethylene Glycol (Polyethylene Glycol 3350 17 Gm Powd.Pack) 17 gm PO DAILY [facility] Last Admin: 10/09/23 07:59 Dose: 17 gm Documented By: LEONARDO Sevelamer Carbonate (Sevelamer Carbonate Tablet 800 Mg Tablet) 800 mg PO TID [facility] Last Admin: 10/09/23 07:58 Dose: 800 mg Documented By: LEONARDO Sodium Chloride (0.9 % Sodium Chloride Flush 3 Ml Syringe) 3 ml IVFLUSH QSHIFT [facility] Last Admin: 10/09/23 07:59 Dose: 3 ml Documented By: LEONARDO Labs 10/08/23 06:16 10/09/23 11:02 Labs: Laboratory Results - last 24 hr 10/08/23 10/08/23 10/08/23 11:50 16:23 21:45 POC Glucose 169 H 156 H 125 H 10/09/23 07:31 POC Glucose 145 H Assessment and Plan (1) Pulmonary edema: Status: Acute (2) Atypical chest pain: Status: Acute (3) Volume overload: Status: Acute Plan This is a 68-year-old female with pertinent history of ESRD on hemodialysis (M/W/F), congestive heart failure with reduced ejection fraction, insulin-dependent type 2 diabetes mellitus, mixed hyperlipidemia, essential hypertension, history of CVA, mood disorder admitted for acute repspiratory distress due to anasarca in the setting of acute CHF exacerbation/ESRD #Acute respiratory distress with anasarca due to acute on chronic congestive heart failure with reduced ejection fraction, due to dietary noncompliance #ESRD on hemodialysis MF -Respiratory distress resolved -10/09- though still reporting sob, no hypoxia. Still with JVD -HD yesterday 10/08, resume HD MF schedule per nephro -IV 40mg daily -strict I&O -Daily weight -Cardiac/low sodium diet -Nephro input appreciated #Acute pneumonia -CXR 10/09 shows right basilar pneumonia with small pleural effusion -VSS, no sepsis -IV ceftriaxone, doxycycline (initiated 10/09) -sputum culture, strep pneumo antigen, Legionella antigen pending -Follow cultures #Chest pain -Describes retrosternal pressure nonradiating -EKG shows possible LBBB which is new. QRS slightly increased from EKG yesterday -Initial trop 28.2, repeat pending -cardiology consult -Monitor on tele #Anasarca -due to above #Prolonged QTc -chronically prolonged. possibly r/t ESRD/HD -K normal, check mag -Tele monitoring -avoid qt lengthening medications #Weakness/recurrent falls -pt eval #Insulin-dependent type 2 diabetes mellitus without hyperglycemia -dose adjusted basal insulin -POC glucose, diabetic diet -Humalog on sliding scale Reduce basal insulin #Essential hypertension -Continue home antihypertensives #History of CVA -cotninue plavix, aspirin, high-intensity statin #Mood disorder -Continue mood stabilizers #Obesity -Counseled regarding diet and weight loss #Anemia of chronic kidney disease -h/h baseline DVT prophylaxis: Heparin Full code Cardiac/diabetic diet Pt requires ongoing inpt stay due to ongoing volume overload/anasarca 2/2 ESRD/CHD requiring HD and IV diuretics with close monitoring of renal function/lytes Quality Stroke Does the patient have a stroke diagnosis?: No VTE Prior VTE?: No VTE Risk Level:: Medical - moderate - high VTE Device Contraindication: Treatment Not Indicated VTE Drug Contraindication: N/A - Med Ordered
[2023-10-09 11:35] LABS: Anion Gap 18 (12-20); Blood Urea Nitrogen 21 mg/dL (9-16); Calcium 8.3 mg/dL (8.4-10.2); Carbon Dioxide 27 mmol/L (22-29); Chloride 98 mmol/L (96-108); Creatinine Clr Calc Pharmacy 16.7; Estimated Glomerular Filt Rate 17; Glucose Random 279 mg/dL (60-115); Potassium 4.4 mmol/L (3.3-5.1); Sodium 139 mmol/L (135-145)
--- NOTE | 2023-10-09 11:43 | ECG_ITS ---
Test Reason : chest pain Blood Pressure : / mmHG Vent. Rate : 061 BPM Atrial Rate : 061 BPM P-R Int : 152 ms QRS Dur : 128 ms QT Int : 534 ms P-R-T Axes : 036 -03 210 degrees QTc Int : 537 ms Sinus rhythm with occasional Premature ventricular complexes Left ventricular hypertrophy with repolizeration abnormality. and QRS widening Abnormal ECG When compared with ECG of 07-OCT-2023 15:20, Minimal criteria for Septal infarct are no longer Present Referred By: Dalia Hester Electronically Signed By:LUCRECIA PILLAI MD
[2023-10-09 13:38] VITALS: BP 160/78; PULSE 79; RESP 20; TEMP 36.3; O2SAT 94
[2023-10-09 15:21] VITALS: BP 116/59; PULSE 60; RESP 18; TEMP 36; O2SAT 98
[2023-10-09 16:19] LABS: Glucose, Whole Blood 213 mg/dL (60-115)
[2023-10-09] MEDS: Sevelamer Carbonate Tablet 800 MG TABLET PO ×2 (17:06→20:41)
[2023-10-09] MEDS: Insulin Lispro 100 UNIT/ML 3 ML VIAL SUBCUT ×2 (17:06→20:40)
[2023-10-09] MEDS: carvediloL 6.25 MG TABLET PO (17:07)
[2023-10-09 19:40] VITALS: BP 147/60; PULSE 59; RESP 17; TEMP 36; O2SAT 96
[2023-10-09 20:25] LABS: Glucose, Whole Blood 154 mg/dL (60-115)
[2023-10-09] MEDS: Heparin Sodium,Porcine 5,000 UNIT/ML VIAL 5000 UNIT SUBCUT (20:36)
[2023-10-09] MEDS: Aspirin Enteric Coated 81 MG TABLET.DR PO (20:38)
[2023-10-09] MEDS: Melatonin 3 MG TABLET 9 MG PO (20:38)
[2023-10-09] MEDS: Atorvastatin Calcium 80 MG TABLET PO (20:41)
--- NOTE | 2023-10-09 20:50 | P.PNNP_ITS ---
Subjective Subjective Date of Service: 10/09/23 Interval history: Seen in follow up for anasarca, CHF exacerbation, ESRD For HD today Physical Exam 2 Vital Signs: Vital Signs: Last Vital Signs Temp 96.8 F 10/09/23 19:40 Pulse 59 10/09/23 19:40 Resp 17 10/09/23 19:40 BP 147/60 H 10/09/23 19:40 Pulse Ox 96 10/09/23 19:40 O2 Del Method Room Air 10/09/23 15:21 BMI result Body Mass Index 31.0 Constitutional - Awake and Alert, No apparent distress Eyes - PERRLA, EOMI Neck - +JVD Cardiovascular - S1S2, RRR, No edema. No diaphoresis Respiratory - Normal lung expansion, Normal respiratory effort, No respiratory distress, scattered crackles bilaterally Gastrointestinal - NT / ND; +BS; No rebound or guarding Extremities - no calf tenderness, no swelling, left bka Skin - Warm/Dry Neurological - Alert & oriented x3 Psychological - Appropriate affect Objective Data Labs 10/08/23 06:16 10/09/23 11:02 Labs: Laboratory Results - last 24 hr 10/08/23 10/09/23 10/09/23 21:45 07:31 11:02 Hold Purple Top Sodium 139 Potassium 4.4 Chloride 98 Carbon Dioxide 27 Anion Gap 18 BUN 21 H Creatinine 2.76 H Estim Creat Clear Calc 16.7 Estimated GFR 17 POC Glucose 125 H 145 H Random Glucose 279 H Calcium 8.3 L Magnesium 2.0 Troponin I High Sens 28.2 H 10/09/23 10/09/23 10/09/23 13:34 14:19 16:11 Hold Purple Top SEE NOTE Sodium Potassium Chloride Carbon Dioxide Anion Gap BUN Creatinine Estim Creat Clear Calc Estimated GFR POC Glucose 149 H 213 H Random Glucose Calcium Magnesium Troponin I High Sens 25.0 H 10/09/23 20:20 Hold Purple Top Sodium Potassium Chloride Carbon Dioxide Anion Gap BUN Creatinine Estim Creat Clear Calc Estimated GFR POC Glucose 154 H Random Glucose Calcium Magnesium Troponin I High Sens Procedures Date of Service Date of Service: 10/09/23 Assessment & Plan Assessment and plan (1) End stage renal disease: Status: Inactive Assessment and Plan: 68-year-old female with pertinent history of ESRD on HD, congestive heart failure with reduced ejection fraction, insulin-dependent type 2 diabetes mellitus, essential hypertension, mixed hyperlipidemia, chronic opioid use, mood disorder, urinary retention, gastroesophageal reflux disease who presents to the emergency department for evaluation of abdominal pain and urinary hesitancy. ESRD on HD Acute emphysematous cystitis. No sepsis Congestive heart failure with reduced ejection fraction Essential hypertension - Continue Hd - Vol removal as tolerated -Patient hemodialysis Monday/Monday/Monday. Thx Dr. Kaur Time Spent With Patient Time: Total time managing care of this patient today ____ minutes. Progress Note: Quality Stroke Does the patient have a stroke diagnosis?: No
[2023-10-10] VITALS (7 sets, daily range): BP systolic 138–158; BP diastolic 60–82; PULSE 61–68; RESP 16–18; TEMP 35.9–36.5; O2SAT 95–98
[2023-10-10] MEDS: Acetaminophen 325 MG TABLET 650 MG PO (02:18)
[2023-10-10] MEDS: Simethicone 80 MG TAB.CHEW 160 MG PO (02:25)
[2023-10-10] MEDS: oxyCODONE HCl Immed Release 5 MG TABLET 2.5 MG PO (02:26)
[2023-10-10] MEDS: Melatonin 3 MG TABLET 6 MG PO (02:29)
--- NOTE | 2023-10-10 07:00 | CA_ITS ---
Transthoracic Echocardiogram Patient (Last, First, Middle): Debbie Guerra, Gender: Female Date of : 1955 Age: 68 Procedure Date: 10/10/2023 Procedure Type: Transthoracic [place]ogram [place] [facility] [place]: 152.4 cm Weight: 71.67 kg BSA: 1.69 m2 Heart Rate: bpm BP: 138 / 60 mmHg Pierogi Maker: PREET Referring MD: Dalia GARCIA Symptoms: chf Study Quality: Fair Conclusions: - 1. Moderately reduced LV ejection fraction 35-40% with grade 3 diastolic dysfunction 2. At least mildly dilated left atrium 3. [id number] aortic stenosis next 4. Moderate mitral calcification with mild mitral regurgitation 5. Severely elevated right ventricular systolic pressure with significant elevated right atrial pressures 6. No gross pericardial effusion Findings Procedure Information The patient declines contrast. Left Ventricle Normal left ventricular cavity size. There is normal left ventricular wall thickness. The left ventricular systolic function is moderately decreased. The visually estimated ejection fraction is between 35-40%. Spectral Doppler is indicative of a restrictive filling pattern. E/E prime ratio is >15, consistent with elevated filling pressures. Evidence suggests grade III (severe) diastolic dysfunction. Right Ventricle Normal right ventricular cavity size. There is low normal right ventricular systolic function. Atria The left atrium is mildly dilated. There is no evidence of interatrial shunt. The right atrium is mildly dilated. Aortic Valve There is mild calcification of the aortic valve. There is mild thickening of the aortic valve. There is mild to moderate aortic valve stenosis. The peak aortic gradient is 15 mmHg.The mean gradient is 8 mmHg. There is no aortic valve regurgitation. Mitral Valve There is moderate anterior and posterior mitral leaflet thickening. There is moderate anterior mitral annular calcification. There is moderate mitral annular calcification. There is mild mitral valve regurgitation. There is no mitral valve stenosis. Tricuspid Valve Normal tricuspid valve structure. There is mild to moderate tricuspid valve regurgitation. Significantly elevated right atrial pressure. Severe pulmonary hypertension is present. Great Vessels All visible segments of the aorta are normal in size. The pulmonary artery was not well visualized. Venous The inferior vena cava is severely dilated and collapses less than 50% with inspiration. Pericardium/Pleural There is no evidence of pericardial effusion. Prior Study Comparison Changes noted compared to prior study dated: 09/15/2022. RV systolic pressure is further elevated with significantly elevated right atrial pressures Measurements 2D Linear Measurements IVSd: 0.99 0.6-0.9/0.6-1.0 cm LVIDd: 5.52 3.9-5.3/4.2-5.9 cm LVIDd Index: 3.27 2.4-3.2/2.2-3.1 cm/m2 LVIDs: 4.56 2.0-3.6 cm LVPWd: 0.92 0.7-1.1 cm LA Diam: 4.10 2.7-3.8/3.0-4.0 cm LAIDs Index: 2.43 1.5-2.3 cm/m2 LV Mass: 250.62 67-162/88-224 g LV Mass Index: 148.30 43-95/49-115 g/m2 LVOT Diam: 1.90 3.0+(-)1.3 cm 2D Systolic Function EF 4C: 44.20 >55% EF 2C: 33.30 >55% EF BiP: 39.60 >55% Mitral Valve MV VTI: 0.50 MV Pk Rudy: 1.64 MV Mn Rudy: 0.92 MV Pk Grad: 11.00 MV Mn Grad: 4.00 MV Pk E: 1.45 MV PK A: 0.99 MV Decel Time: 206.00 E/A: 1.50 E'Lateral: 4.73 E'Medial: 4.05 E/E' Med: 35.80 E/E' Lat: 30.70 PHT: 60.00 MVA PHT: 3.67 MVA Continuity: 1.01 Decel [place]: 7.04 Aortic Valve AoV Pk Rudy: 1.94 AoV Mn Rudy: 1.30 AoV VTI: 0.46 AoV Pk Grad: 15.00 Aov Mn Grad: 8.00 MAGNOLIA Cont.VTI: 1.11 LVOT LVOT Pk Rudy: 0.73 LVOT Mn Rudy: 0.47 LVOT VTI: 0.18 LVOT Pk Grad: 2.00 LVOT Mn Grad: 1.00 LVOT Diam: 1.90 LVOT Area: 2.84 Diastolic Function MV Pk E: 1.45 MV Pk A: 0.99 E/A: 1.50 E'Medial: 4.05 E/E' Med: 35.80 E' Laterial: 4.73 E/E' Lat: 30.70 Right Ventricle TAPSE (mm): 16.90 TVS' Rudy: 7.80 Tricuspid Valve TR Pk Rudy: 3.63 TR Pk Grad: 53.00 RA Press: 15.00 RVSP: 68.00 Great Vessels Aorta Sinus of Valsalva: 2.52 2.0-3.5 cm Ao Asc: 3.40 2.1-3.4 cm Updated in Other Vendor System with Status of Final Luis Bal MD electronically signed on 10/11/2023 3:12:25 PM with status of Final
[2023-10-10 07:18] LABS: Glucose, Whole Blood 123 mg/dL (60-115)
[2023-10-10 07:30] LABS: MANUAL DIFF FLAG NO
[2023-10-10 07:37] LABS: Basophils Percent Auto 0.2 % (0-2); Eosinophils Absolute Auto 0.2 X10*3/uL (0.0-0.4); Eosinophils Percent Auto 2.8 % (0-4); Hematocrit 33.4 % (37.0-47.0); Hemoglobin 10.4 g/dl (12.0-16.0); Imm Gran Abs Auto 0.04 X10*3/uL (0.00-0.03); Imm Gran Pct Auto 0.5 % (0.0-0.4); Lymphocytes Absolute Auto 1.9 X10*3/uL (1.2-4.9); Lymphocytes Percent Auto 21.6 % (20-40); Mean Corpuscular HGB Conc 31.1 g/dl (31.0-35.0); Mean Corpuscular Volume 86.8 fL (80.0-98.0); Monocytes Absolute Auto 0.7 X10*3/uL (0.1-1.2); Monocytes Percent Auto 7.7 % (2-11); Neutrophils Absolute Auto 5.8 x10*3/uL (2.0-8.3); Neutrophils Percent Auto 67.2 % (45-73); Platelet Count 138 X10*3/uL (160-400); Red Blood Count 3.85 X10*6/uL (4.20-5.50); Red Cell Distribution Width 14.4 % (11.0-16.0); White Blood Count 8.7 X10*3/uL (4.8-10.8)
[2023-10-10 07:49] LABS: Anion Gap 14 (12-20); Blood Urea Nitrogen 21 mg/dL (9-16); Calcium 8.3 mg/dL (8.4-10.2); Carbon Dioxide 24 mmol/L (22-29); Chloride 100 mmol/L (96-108); Creatinine Clr Calc Pharmacy 18.6; Estimated Glomerular Filt Rate 19; Glucose Random 116 mg/dL (60-115); Potassium 4.3 mmol/L (3.3-5.1); Sodium 134 mmol/L (135-145)
[2023-10-10] MEDS: Albuterol/Iprat 2.5/0.5MG 3 ML AMPUL.NEB INHALE (08:21)
[2023-10-10] MEDS: carvediloL 6.25 MG TABLET PO ×2 (09:14→16:20)
[2023-10-10] MEDS: Furosemide 40 MG/4 ML VIAL IVPUSH (09:15)
[2023-10-10] MEDS: Sevelamer Carbonate Tablet 800 MG TABLET PO ×3 (09:15→21:09)
[2023-10-10] MEDS: Clopidogrel Bisulfate 75 MG TABLET PO (09:15)
[2023-10-10] MEDS: Heparin Sodium,Porcine 5,000 UNIT/ML VIAL 5000 UNIT SUBCUT ×2 (09:15→21:08)
[2023-10-10] MEDS: Magnesium Oxide 400 MG TABLET PO (09:15)
[2023-10-10] MEDS: polyethylene glycoL 3350 17 GM POWD.PACK PO (09:15)
[2023-10-10] MEDS: amLODIPine Besylate 5 MG TABLET PO (09:15)
--- NOTE | 2023-10-10 09:31 | P.CONCA_ITS ---
History of Present Illness History of Present Illness Date of Service: 10/10/23 Requesting physician: Dalia Hester Consult reason: chest pain and congestive heart failure Chief complaint: CP Narrative: I was consulted to see Debbie in cardiology consultation today for retrosternal chest discomfort. She has some chest discomfort yesterday and there was concern for new left bundle-branch block. However reviewing her EKG there is no significant change. She has LVH with repolarization abnormality with QRS widening on EKG yesterday which is similar to a prior EKG. Troponins were done which worse minimally elevated but flat. There is no rise and fall consistent with acute coronary syndrome. She denies any chest pain today. Says her breathing is better. She has been admitted with shortness of breath and elevated BNP and concern for congestive heart failure. Chest x-ray reviewed is most suggestive of pneumonia. However she has been dialyzed and has had gradual improvement in her shortness of breath. Blood pressure remains elevated. Echocardiogram last done in September 2022 at shown moderate to severe LV systolic dysfunction with LVEF of 32%. She has had recurrent hospitalization for multiple different reasons. She has had issues with noncompliance with dialysis in the past. Review of Systems 2 Constitutional: Constitutional: Reports no additional constitutional complaints Cardiovascular: Cardiovascular: Reports chest pain at rest, Denies syncope, Denies leg edema, Denies lightheadedness, Denies palpitations and Reports dyspnea on exertion Respiratory: Respiratory: Reports dyspnea on exertion Musculoskeletal: Musculoskeletal: Reports no additional musculoskeletal complaints Integumentary/Breasts: Skin/Breast: Reports system reviewed and no additional complaints, except as docu Neurologic: Denies syncope Psychiatric: Psychiatric: Reports no additional psychiatric complaints Endocrine: Endocrine: Denies palpitations [facility] Past Medical History Medical History Dialysis patient, noncompliant Chronic kidney disease Thrombocytopenia CKD (chronic kidney disease) stage 4, GFR 15-29 ml/min End stage renal disease Constipation 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 Normocytic anemia Urinary tract infection due to ESBL Klebsiella Chronic heart failure with preserved ejection fraction (HFpEF) Hypomagnesemia Acute on chronic renal failure Essential hypertension HLD (hyperlipidemia) Non-ST elevated myocardial infarction Diabetes mellitus Congestive heart failure Nonischemic cardiomyopathy Irritable bowel syndrome with diarrhea Gastroparesis GERD (gastroesophageal reflux disease) Family History Family History Father Lung cancer Mother Diabetes HTN (hypertension) Heart disease Sister Diabetes Heart disease Brother Heart disease Son Diabetes Daughter Diabetes Surgical History Surgical History H/O surgical amputation of finger History of laparoscopic cholecystectomy History of intestinal surgery Hx of eye surgery History of esophagogastroduodenoscopy (EGD) Hx of colonoscopy H/O: hysterectomy Social History Social History Household Members: Family and Children Household Members Other:: SNF Housing: House Do you presently have visiting nurse or other home services: No Unable to assess alcohol history related to: Unknown Alcohol intake: never Comment: report called by previous shift RN Patient Tobacco Use Status: Never used Tobacco Second Hand Smoke Exposure: No Advance Directives Date on File: 01/04/23 service: No Current occupational status: disabled Meds Allergies Allergy/AdvReac Type Severity Reaction Status Date / Time latex [LATEX] Allergy Intermediate ITCHY Verified 05/25/23 09:18 Active Medications: Current Medications Acetaminophen (Acetaminophen 325 Mg Tablet) 650 mg PO Q6H PRN PRN Reason: Pain, Mild (Pain Scale 1-3) Last Admin: 10/10/23 02:18 Dose: 650 mg Albuterol Sulfate (Albuterol Sulfate 90 Mcg 8 Gm Inhaler) 2 puff INHALE RQ4H PRN PRN Reason: shortness of breath or wheezing Amlodipine Besylate (Amlodipine Besylate 5 Mg Tablet) 5 mg PO DAILY [facility]; Protocol Last Admin: 10/10/23 09:15 Dose: 5 mg Aspirin (Aspirin Enteric Coated 81 Mg Tablet.Dr) 81 mg PO BEDTIME MATTY Last Admin: 10/09/23 20:38 Dose: 81 mg Atorvastatin Calcium (Atorvastatin Calcium 80 Mg Tablet) 80 mg PO BEDTIME MATTY Last Admin: 10/09/23 20:41 Dose: 80 mg Carvedilol (Carvedilol 6.25 Mg Tablet) 6.25 mg PO BIDWM MATTY; Protocol Last Admin: 10/10/23 09:14 Dose: 6.25 mg Clopidogrel Bisulfate (Clopidogrel Bisulfate 75 Mg Tablet) 75 mg PO DAILY [facility] Last Admin: 10/10/23 09:15 Dose: 75 mg Dextrose (Dextrose 50 % 25 Gm/50 Ml Syringe) 25 gm IVPUSH Q15M PRN; Protocol PRN Reason: per Hypoglycemia Standing Ord. Furosemide (Furosemide 40 Mg/4 Ml Vial) 40 mg IVPUSH DAILY [facility]; Protocol Last Admin: 10/10/23 09:15 Dose: 40 mg Glucose (Glucose Gel 15 Gm Gel..Gram.) 15 gm PO Q15M PRN; Protocol PRN Reason: per Hypoglycemia Standing Ord. Guaifenesin (Guaifenesin 200 Mg/10 Ml 10 Ml Liquid) 10 ml PO Q4H PRN PRN Reason: Cough Heparin Sodium (Porcine) (Heparin Sodium,Porcine 5,000 Unit/Ml Vial) 5,000 unit SUBCUT Q12H [facility] Last Admin: 10/10/23 09:15 Dose: 5,000 unit Ceftriaxone Sodium 1 gm/ (Sodium Chloride) 50 mls @ 100 mls/hr IV Q24H [facility] Last Infusion: 10/09/23 14:34 Dose: Infused Doxycycline Hyclate 100 mg/ (Sodium Chloride) 250 mls @ 166.67 mls/hr IV Q12H [facility] Last Infusion: 10/10/23 04:13 Dose: Infused Insulin Human Lispro (Insulin Lispro 100 Unit/Ml 3 Ml Vial) 0 unit SUBCUT QIDACHS [facility]; Protocol Last Admin: 10/10/23 07:19 Dose: Not Given Magnesium Oxide (Magnesium Oxide 400 Mg Tablet) 400 mg PO DAILY [facility] Last Admin: 10/10/23 09:15 Dose: 400 mg Melatonin (Melatonin 3 Mg Tablet) 6 mg PO BEDTIME PRN PRN Reason: Insomnia Last Admin: 10/10/23 02:29 Dose: 6 mg Melatonin (Melatonin 3 Mg Tablet) 9 mg PO BEDTIME [facility] Last Admin: 10/09/23 20:38 Dose: 9 mg Polyethylene Glycol (Polyethylene Glycol 3350 17 Gm Powd.Pack) 17 gm PO DAILY [facility] Last Admin: 10/10/23 09:15 Dose: 17 gm Sevelamer Carbonate (Sevelamer Carbonate Tablet 800 Mg Tablet) 800 mg PO TID [facility] Last Admin: 10/10/23 09:15 Dose: 800 mg Sodium Chloride (0.9 % Sodium Chloride Flush 3 Ml Syringe) 3 ml IVFLUSH QSHIFT [facility] Last Admin: 10/10/23 09:14 Dose: 3 ml Home Medications Medication Instructions Recorded Confirmed Last Taken Type aspirin 81 mg tablet,delayed 81 mg PO BEDTIME 06/20/21 10/08/23 09/20/23 History release atorvastatin 80 mg tablet 80 mg PO BEDTIME 06/20/21 10/08/23 09/20/23 History clopidogrel 75 mg tablet 75 mg PO DAILY 06/20/21 10/08/23 09/20/23 History insulin glargine 100 unit/mL (3 20 unit subcut DAILY 03/25/22 10/08/23 09/20/23 History mL) subcutaneous pen (Lantus Solostar U-100 Insulin) amlodipine 5 mg tablet 5 mg PO DAILY 04/20/23 10/08/23 09/20/23 History carvedilol 6.25 mg tablet 6.25 mg PO BIDWM 04/20/23 10/08/23 09/20/23 History magnesium oxide 400 mg (241.3 mg 400 mg PO DAILY 04/20/23 10/08/23 09/20/23 History magnesium) tablet blood sugar diagnostic (FitnessKeeperTouch #10 ea 05/25/23 Unknown History Ultra Test strips) insulin aspart U-100 100 unit/mL 1 sliding scale dose subcut TIDAC 05/25/23 10/08/23 09/20/23 History (3 mL) subcutaneous pen (Novolog FlexPen U-100 Insulin aspart) lancets 33 gauge (OneTouch [place] #100 ea 05/25/23 Unknown History Plus Lancet) pen needle, diabetic 32 gauge x #1,200 ea 05/25/23 Unknown History (Pentips) albuterol sulfate 90 mcg/actuation 2 inh inhalation Q4H PRN shortness 09/21/23 10/08/23 Unknown History aerosol inhaler of breath or wheezing melatonin 5 mg tablet 10 mg PO BEDTIME 09/21/23 10/08/23 09/20/23 History sevelamer carbonate 800 mg tablet 800 mg PO TID 10/08/23 10/08/23 Unknown History Physical Exam 2 Vital Signs: Vital Signs: Last Vital Signs Temp 97.5 F 10/10/23 07:29 Pulse 68 10/10/23 08:22 Resp 16 10/10/23 08:22 BP 154/67 H 10/10/23 09:28 Pulse Ox 95 10/10/23 07:29 O2 Del Method Room Air 10/10/23 07:29 BMI result Body Mass Index 31.0 Const: General: cooperative, comfortable, no acute distress, alert and awake Nutritional Appearance: obese Orientation/consciousness: patient oriented x3 Limitations: no limitations HEENT: Head: Yes normocephalic and Yes atraumatic Neck: Neck: Yes trachea midline, Yes supple and Yes no JVD Resp: Effort & Inspection: normal respiratory effort Auscultation: clear to auscultation bilaterally Cardio: Jugular venous distension: no JVD Palpation: abnormal PMI displaced PMI Rate: regular rate Rhythm: regular rhythm Heart sounds: S1 normal heart sound present, S2 normal heart sound present, no click, no gallops and Murmur heart sound present systolic early GI: Auscultation: normal bowel sounds Skin: General skin exam: no rashes or lesions noted Neuro: General: patient oriented x3 and no focal motor deficits Extrem: General: Yes no clubbing, cyanosis or edema Objective Labs and Meds 10/10/23 06:07 10/10/23 06:07 Lab results: Laboratory Results - last 24 hr 10/09/23 10/09/23 10/09/23 11:02 13:34 14:19 WBC RBC Hgb Hct MCV MCH MCHC RDW Plt Count MPV Immature Gran % (Auto) Neut % (Auto) Lymph % (Auto) [place] % (Auto) Eos % (Auto) Baso % (Auto) Lymph # (Auto) [place] # (Auto) Eos # (Auto) Baso # (Auto) Abs Immat Gran (auto) Absolute Neuts (auto) Absolute Nucleated RBC Nucleated RBC % (auto) Hold Purple Top SEE NOTE Sodium 139 Potassium 4.4 Chloride 98 Carbon Dioxide 27 Anion Gap 18 BUN 21 H Creatinine 2.76 H Estim Creat Clear Calc 16.7 Estimated GFR 17 POC Glucose 149 H Random Glucose 279 H Calcium 8.3 L Magnesium 2.0 Troponin I High Sens 28.2 H 25.0 H 10/09/23 10/09/23 10/10/23 16:11 20:20 06:07 WBC 8.7 RBC 3.85 L Hgb 10.4 L Hct 33.4 L MCV 86.8 MCH 27.0 MCHC 31.1 RDW 14.4 Plt Count 138 L MPV 11.0 Immature Gran % (Auto) 0.5 H Neut % (Auto) 67.2 Lymph % (Auto) 21.6 [place] % (Auto) 7.7 Eos % (Auto) 2.8 Baso % (Auto) 0.2 Lymph # (Auto) 1.9 [place] # (Auto) 0.7 Eos # (Auto) 0.2 Baso # (Auto) 0.0 Abs Immat Gran (auto) 0.04 H Absolute Neuts (auto) 5.8 Absolute Nucleated RBC 0.000 Nucleated RBC % (auto) 0.0 Hold Purple Top Sodium 134 L Potassium 4.3 Chloride 100 Carbon Dioxide 24 Anion Gap 14 BUN 21 H Creatinine 2.48 H Estim Creat Clear Calc 18.6 Estimated GFR 19 POC Glucose 213 H 154 H Random Glucose 116 H Calcium 8.3 L Magnesium Troponin I High Sens 10/10/23 07:12 WBC RBC Hgb Hct MCV MCH MCHC RDW Plt Count MPV Immature Gran % (Auto) Neut % (Auto) Lymph % (Auto) [place] % (Auto) Eos % (Auto) Baso % (Auto) Lymph # (Auto) [place] # (Auto) Eos # (Auto) Baso # (Auto) Abs Immat Gran (auto) Absolute Neuts (auto) Absolute Nucleated RBC Nucleated RBC % (auto) Hold Purple Top Sodium Potassium Chloride Carbon Dioxide Anion Gap BUN Creatinine Estim Creat Clear Calc Estimated GFR POC Glucose 123 H Random Glucose Calcium Magnesium Troponin I High Sens Imaging Radiologist's impression: Impressions Chest X-Ray 10/09/23 10:17 IMPRESSION: Finding suggestive of right basilar pneumonia with small right pleural effusion. Assessment and Plan (1) Atypical chest pain: Status: Acute Patient's chest pain is not related to acute myocardial ischemia. Appears to be atypical question musculoskeletal. Could be related to subendocardial ischemia related to hypertension although this is less likely. Elevated troponins are flat related to end-stage renal disease underlying cardiomyopathy process. No further workup is indicated from that perspective. (2) Heart failure with reduced ejection fraction: Status: Acute Patient admitted with shortness of breath with findings of pneumonia question pulmonary edema. BNP was significantly elevated on admission. This could be related to worsening myocardial function in the setting of ensure own disease. Repeat echocardiogram to assess LV systolic function. Continue carvedilol which can be maximized to 12.5 mg b.i.d.. I would try to switch her to renin angiotensin receptor antagonist such as valsartan if okay with Nephrology for neurohormonal modulation especially given that she is on chronic dialysis as well as a potassium level within normal limits. At that point time amlodipine can be tapered and her carvedilol and angiotensin receptor blockers maximized. Clinically today appears to be euvolemic. Continue her dialysis session and maintenance of dry weight. Discussed with patient about avoidance of salt loading and importance of compliance with dialysis. Will sign of the case at this point in time. Thank you for allowing me to partake in her care Procedures Date of Service Date of Service: 10/10/23
--- NOTE | 2023-10-10 09:48 | PM.DS ---
DS: Providers Provider Date of admission: 10/07/23 19:04 Primary care physician: Alexys Avila MD Consults: 10/07/23 19:05 Consult to Nephrology Routine Consulting Provider: Anil Beatty Reason for consultation: ESRD 10/09/23 12:52 Consult to Cardiology Routine Consulting Provider: [facility] [place] [facility] Reason for consultation: new LBBB, chest pain DS: Diagnosis Discharge Diagnosis (1) Atypical chest pain: Status: Acute (2) Heart failure with reduced ejection fraction: Status: Acute Physical Exam Vital Signs: Vital Signs: Last Vital Signs Temp 97.5 F 10/10/23 07:29 Pulse 68 10/10/23 08:22 Resp 16 10/10/23 08:22 BP 154/67 H 10/10/23 09:28 Pulse Ox 95 10/10/23 07:29 O2 Del Method Room Air 10/10/23 07:29 BMI result Body Mass Index 31.0 DS: Data Data Completed and Pending Completed studies during hospitalization [Text1]: Procedures Detachment at Left Index Finger, Mid, Open Approach (09/15/22) Dilation of Esophagus, Via Natural or Artificial Opening Endoscopic (01/31/22) Dilation of Upper Esophagus, Via Natural or Artificial Opening Endoscopic (08/16/21) Fluoroscopy of Superior Vena Cava using Low Osmolar Contrast, Guidance (12/27/22) Insertion of Infusion Device into Superior Vena Cava, Percutaneous Approach (12/27/22) Introduction of Other Thrombolytic into Peripheral Vein, Percutaneous Approach (06/05/21) Performance of Urinary Filtration, Intermittent, Less than 6 Hours Per Day (09/21/23) Transfusion of Nonautologous Red Blood Cells into Peripheral Vein, Percutaneous Approach (12/27/22) Labs on day of discharge: Laboratory Results - last 24 hr 10/09/23 10/09/23 10/09/23 11:02 13:34 14:19 WBC RBC Hgb Hct MCV MCH MCHC RDW Plt Count MPV Immature Gran % (Auto) Neut % (Auto) Lymph % (Auto) [place] % (Auto) Eos % (Auto) Baso % (Auto) Lymph # (Auto) [place] # (Auto) Eos # (Auto) Baso # (Auto) Abs Immat Gran (auto) Absolute Neuts (auto) Absolute Nucleated RBC Nucleated RBC % (auto) Hold Purple Top SEE NOTE Sodium 139 Potassium 4.4 Chloride 98 Carbon Dioxide 27 Anion Gap 18 BUN 21 H Creatinine 2.76 H Estim Creat Clear Calc 16.7 Estimated GFR 17 POC Glucose 149 H Random Glucose 279 H Calcium 8.3 L Magnesium 2.0 Troponin I High Sens 28.2 H 25.0 H 10/09/23 10/09/23 10/10/23 16:11 20:20 06:07 WBC 8.7 RBC 3.85 L Hgb 10.4 L Hct 33.4 L MCV 86.8 MCH 27.0 MCHC 31.1 RDW 14.4 Plt Count 138 L MPV 11.0 Immature Gran % (Auto) 0.5 H Neut % (Auto) 67.2 Lymph % (Auto) 21.6 [place] % (Auto) 7.7 Eos % (Auto) 2.8 Baso % (Auto) 0.2 Lymph # (Auto) 1.9 [place] # (Auto) 0.7 Eos # (Auto) 0.2 Baso # (Auto) 0.0 Abs Immat Gran (auto) 0.04 H Absolute Neuts (auto) 5.8 Absolute Nucleated RBC 0.000 Nucleated RBC % (auto) 0.0 Hold Purple Top Sodium 134 L Potassium 4.3 Chloride 100 Carbon Dioxide 24 Anion Gap 14 BUN 21 H Creatinine 2.48 H Estim Creat Clear Calc 18.6 Estimated GFR 19 POC Glucose 213 H 154 H Random Glucose 116 H Calcium 8.3 L Magnesium Troponin I High Sens 10/10/23 07:12 WBC RBC Hgb Hct MCV MCH MCHC RDW Plt Count MPV Immature Gran % (Auto) Neut % (Auto) Lymph % (Auto) [place] % (Auto) Eos % (Auto) Baso % (Auto) Lymph # (Auto) [place] # (Auto) Eos # (Auto) Baso # (Auto) Abs Immat Gran (auto) Absolute Neuts (auto) Absolute Nucleated RBC Nucleated RBC % (auto) Hold Purple Top Sodium Potassium Chloride Carbon Dioxide Anion Gap BUN Creatinine Estim Creat Clear Calc Estimated GFR POC Glucose 123 H Random Glucose Calcium Magnesium Troponin I High Sens Discharge Plan Discharge Referrals: Alexys Avila MD [Primary Care Provider] - 1 Week Discharge Medications: No Action atorvastatin 80 mg tablet 80 mg PO BEDTIME clopidogrel 75 mg tablet 75 mg PO DAILY aspirin 81 mg tablet,delayed release (DR/EC) 81 mg PO BEDTIME insulin glargine [Lantus Solostar U-100 Insulin] 100 unit/mL (3 mL) insulin pen 20 unit subcut DAILY amlodipine 5 mg tablet 5 mg PO DAILY magnesium oxide 400 mg (241.3 mg magnesium) tablet 400 mg PO DAILY carvedilol 6.25 mg tablet 6.25 mg PO BIDWM Rx Instructions: must administer with a meal/food - Take one tablet twice daily sevelamer carbonate 800 mg tablet 800 mg PO TID melatonin 5 mg tablet 10 mg PO BEDTIME albuterol sulfate 90 mcg/actuation HFA aerosol inhaler 2 inh inhalation Q4H PRN (Reason: shortness of breath or wheezing) (DME) lancets [OneTouch Delica Plus Lancet] 33 gauge misc See Rx Instructions .ROUTE TID Qty: 100 Rx Instructions: As directed (DME) pen needle, diabetic [Pentips] 32 gauge x 5/32 needle See Rx Instructions .ROUTE DIRECTED Qty: 1200 Rx Instructions: As directed (DME) OneTouch Ultra Test Strip See Rx Instructions .ROUTE TID Qty: 10 Rx Instructions: As directed insulin aspart U-100 [Novolog FlexPen U-100 Insulin] 100 unit/mL (3 mL) insulin pen 1 sliding scale dose subcut TIDAC Rx Instructions: 8-12 units SLIDING SCALE
[2023-10-10 11:09] LABS: Glucose, Whole Blood 157 mg/dL (60-115)
[2023-10-10] MEDS: Insulin Lispro 100 UNIT/ML 3 ML VIAL SUBCUT ×2 (12:00→16:20)
--- NOTE | 2023-10-10 13:23 | HO.PM.IMPN ---
Subjective Subjective Date of Service: 10/10/23 Interval History: Seen in follow up for anasarca, CHF exacerbation, ESRD INterval history: No overnight events, VSS. sob and cp resolving Review of Systems Review of Systems: Yes all other systems are reviewed and are negative Physical Exam Vital Signs: Vital Signs: Last Vital Signs Temp 97.5 F 10/10/23 07:29 Pulse 68 10/10/23 08:22 Resp 16 10/10/23 08:22 BP 154/67 H 10/10/23 09:43 Pulse Ox 95 10/10/23 07:29 O2 Del Method Room Air 10/10/23 07:29 BMI result Body Mass Index 31.0 Constitutional - Awake and Alert, No apparent distress Eyes - PERRLA, EOMI Neck - no jvd Cardiovascular - S1S2, RRR, No edema. No diaphoresis Respiratory - Normal lung expansion, Normal respiratory effort, No respiratory distress, cta Gastrointestinal - NT / ND; +BS; No rebound or guarding Extremities - no calf tenderness, no swelling, left bka Skin - Warm/Dry Neurological - Alert & oriented x3 Psychological - Appropriate affect Objective Data Active Medications Acetaminophen (Acetaminophen 325 Mg Tablet) 650 mg PO Q6H PRN PRN Reason: Pain, Mild (Pain Scale 1-3) Last Admin: 10/10/23 02:18 Dose: 650 mg Documented By: PRINCESS Albuterol Sulfate (Albuterol Sulfate 90 Mcg 8 Gm Inhaler) 2 puff INHALE RQ4H PRN PRN Reason: shortness of breath or wheezing Amlodipine Besylate (Amlodipine Besylate 5 Mg Tablet) 5 mg PO DAILY [facility]; Protocol Last Admin: 10/10/23 09:15 Dose: 5 mg Documented By: LILLIAN Aspirin (Aspirin Enteric Coated 81 Mg Tablet.) 81 mg PO BEDTIME [facility] Last Admin: 10/09/23 20:38 Dose: 81 mg Documented By: PRINCESS Atorvastatin Calcium (Atorvastatin Calcium 80 Mg Tablet) 80 mg PO BEDTIME [facility] Last Admin: 10/09/23 20:41 Dose: 80 mg Documented By: PRINCESS Carvedilol (Carvedilol 6.25 Mg Tablet) 6.25 mg PO BIDWM [facility]; Protocol Last Admin: 10/10/23 09:14 Dose: 6.25 mg Documented By: LILLIAN Clopidogrel Bisulfate (Clopidogrel Bisulfate 75 Mg Tablet) 75 mg PO DAILY [facility] Last Admin: 10/10/23 09:15 Dose: 75 mg Documented By: LILLIAN Dextrose (Dextrose 50 % 25 Gm/50 Ml Syringe) 25 gm IVPUSH Q15M PRN; Protocol PRN Reason: per Hypoglycemia Standing Ord. Furosemide (Furosemide 40 Mg/4 Ml Vial) 40 mg IVPUSH DAILY [facility]; Protocol Last Admin: 10/10/23 09:15 Dose: 40 mg Documented By: LILLIAN Glucose (Glucose Gel 15 Gm Gel..Gram.) 15 gm PO Q15M PRN; Protocol PRN Reason: per Hypoglycemia Standing Ord. Guaifenesin (Guaifenesin 200 Mg/10 Ml 10 Ml Liquid) 10 ml PO Q4H PRN PRN Reason: Cough Heparin Sodium (Porcine) (Heparin Sodium,Porcine 5,000 Unit/Ml Vial) 5,000 unit SUBCUT Q12H [facility] Last Admin: 10/10/23 09:15 Dose: 5,000 unit Documented By: LILLIAN Ceftriaxone Sodium 1 gm/ (Sodium Chloride) 50 mls @ 100 mls/hr IV Q24H [facility] Last Admin: 10/10/23 12:01 Dose: 100 mls/hr Documented By: LILLIAN Doxycycline Hyclate 100 mg/ (Sodium Chloride) 250 mls @ 166.67 mls/hr IV Q12H [facility] Last Infusion: 10/10/23 04:13 Dose: Infused Documented By: PRINCESS Insulin Human Lispro (Insulin Lispro 100 Unit/Ml 3 Ml Vial) 0 unit SUBCUT QIDACHS [facility]; Protocol Last Admin: 10/10/23 12:00 Dose: 2 unit Documented By: LILLIAN Magnesium Oxide (Magnesium Oxide 400 Mg Tablet) 400 mg PO DAILY [facility] Last Admin: 10/10/23 09:15 Dose: 400 mg Documented By: LILLIAN Melatonin (Melatonin 3 Mg Tablet) 6 mg PO BEDTIME PRN PRN Reason: Insomnia Last Admin: 10/10/23 02:29 Dose: 6 mg Documented By: PRINCESS Melatonin (Melatonin 3 Mg Tablet) 9 mg PO BEDTIME [facility] Last Admin: 10/09/23 20:38 Dose: 9 mg Documented By: PRINCESS Polyethylene Glycol (Polyethylene Glycol 3350 17 Gm Powd.Pack) 17 gm PO DAILY [facility] Last Admin: 10/10/23 09:15 Dose: 17 gm Documented By: LILLIAN Sevelamer Carbonate (Sevelamer Carbonate Tablet 800 Mg Tablet) 800 mg PO TID [facility] Last Admin: 10/10/23 09:15 Dose: 800 mg Documented By: LILLIAN Sodium Chloride (0.9 % Sodium Chloride Flush 3 Ml Syringe) 3 ml IVFLUSH QSHIFT [facility] Last Admin: 10/10/23 09:14 Dose: 3 ml Documented By: LILLIAN Labs 10/10/23 06:07 10/10/23 06:07 Labs: Laboratory Results - last 24 hr 10/09/23 10/09/23 10/09/23 11:02 13:34 14:19 MCV MCH MCHC RDW Plt Count MPV Immature Gran % (Auto) Neut % (Auto) Lymph % (Auto) [place] % (Auto) Eos % (Auto) Baso % (Auto) Lymph # (Auto) [place] # (Auto) Eos # (Auto) Baso # (Auto) Abs Immat Gran (auto) Absolute Neuts (auto) Absolute Nucleated RBC Nucleated RBC % (auto) Hold Purple Top SEE NOTE Anion Gap Estim Creat Clear Calc Estimated GFR POC Glucose 149 H Random Glucose Calcium Magnesium 2.0 10/09/23 10/09/23 10/10/23 16:11 20:20 06:07 MCV 86.8 MCH 27.0 MCHC 31.1 RDW 14.4 Plt Count 138 L MPV 11.0 Immature Gran % (Auto) 0.5 H Neut % (Auto) 67.2 Lymph % (Auto) 21.6 [place] % (Auto) 7.7 Eos % (Auto) 2.8 Baso % (Auto) 0.2 Lymph # (Auto) 1.9 [place] # (Auto) 0.7 Eos # (Auto) 0.2 Baso # (Auto) 0.0 Abs Immat Gran (auto) 0.04 H Absolute Neuts (auto) 5.8 Absolute Nucleated RBC 0.000 Nucleated RBC % (auto) 0.0 Hold Purple Top Anion Gap 14 Estim Creat Clear Calc 18.6 Estimated GFR 19 POC Glucose 213 H 154 H Random Glucose 116 H Calcium 8.3 L Magnesium 10/10/23 10/10/23 07:12 11:04 MCV MCH MCHC RDW Plt Count MPV Immature Gran % (Auto) Neut % (Auto) Lymph % (Auto) [place] % (Auto) Eos % (Auto) Baso % (Auto) Lymph # (Auto) [place] # (Auto) Eos # (Auto) Baso # (Auto) Abs Immat Gran (auto) Absolute Neuts (auto) Absolute Nucleated RBC Nucleated RBC % (auto) Hold Purple Top Anion Gap Estim Creat Clear Calc Estimated GFR POC Glucose 123 H 157 H Random Glucose Calcium Magnesium Assessment and Plan (1) Pulmonary edema: Status: Acute (2) Atypical chest pain: Status: Acute (3) Volume overload: Status: Acute Plan This is a 68-year-old female with pertinent history of ESRD on hemodialysis (M/W/F), congestive heart failure with reduced ejection fraction, insulin-dependent type 2 diabetes mellitus, mixed hyperlipidemia, essential hypertension, history of CVA, mood disorder admitted for acute repspiratory distress due to anasarca in the setting of acute CHF exacerbation/ESRD #Acute respiratory distress with anasarca due to acute on chronic congestive heart failure with reduced ejection fraction, due to dietary noncompliance #ESRD on hemodialysis MF -Respiratory distress resolved -10/10 clinically euvolemic. DC IV lasix -Continue HD MWF -strict I&O -Daily weight -Cardiac/low sodium diet -repeat echo per cardiology -add valsartan 80mg bid, taper amlodipine per cardiology. Continue carvedilol -Nephro/cardiology input appreciated #Acute pneumonia -CXR 10/09 shows right basilar pneumonia with small pleural effusion -VSS, no sepsis -IV ceftriaxone, doxycycline (initiated 10/09) -sputum culture, strep pneumo antigen, Legionella antigen pending -Follow cultures #Chest pain- atypical -Describes retrosternal pressure nonradiating -EKG shows possible LBBB, unlikely per cardiology. QRS slightly increased from EKG yesterday -trops flat -cardiology consult -Monitor on tele #Anasarca -due to above #Prolonged QTc -chronically prolonged. possibly r/t ESRD/HD -K normal, check mag -Tele monitoring -avoid qt lengthening medications #Weakness/recurrent falls -pt eval #Insulin-dependent type 2 diabetes mellitus without hyperglycemia -dose adjusted basal insulin -POC glucose, diabetic diet -Humalog on sliding scale Reduce basal insulin #Essential hypertension -Continue home antihypertensives #History of CVA -continue plavix, aspirin, high-intensity statin #Mood disorder -Continue mood stabilizers #Obesity -Counseled regarding diet and weight loss #Anemia of chronic kidney disease -h/h baseline #Recurrent falls/weakness -s/p bka -PT recommending LTC vs 24/04 care at home DVT prophylaxis: Heparin Full code Cardiac/diabetic diet Pt requires ongoing inpt stay awaiting placement to LTC Quality Stroke Does the patient have a stroke diagnosis?: No VTE Prior VTE?: No VTE Risk Level:: Medical - moderate - high VTE Device Contraindication: Treatment Not Indicated VTE Drug Contraindication: N/A - Med Ordered
--- NOTE | 2023-10-10 14:59 | MHC.CM.PN ---
IMM 10/10/23 Female Lives with her dtr/HCP, Adelita, and grandson. She reports that they both assist her with ADLs. She uses a WC r/t L AKA. She has an electric and manual WC. [facility] HD scheduled . A PT sujata recommended Home with 24/04 vs LTC. We have not been able to reach the dtr by phone;because Adelita has changed her phone number. The patient does not know her dtrs new phone number. Patient preferences obtained for SNF and referrals have been sent. CM will follow for placement.
[2023-10-10 15:53] LABS: Glucose, Whole Blood 190 mg/dL (60-115)
[2023-10-10] MEDS: cefuroxime axetiL 500 MG TABLET PO (16:20)
[2023-10-10] MEDS: Doxycycline Monohydrate 100 MG CAPSULE PO (18:40)
[2023-10-10] MEDS: Melatonin 3 MG TABLET 9 MG PO (21:09)
[2023-10-10] MEDS: Atorvastatin Calcium 80 MG TABLET PO (21:10)
[2023-10-10] MEDS: Aspirin Enteric Coated 81 MG TABLET.DR PO (21:10)
[2023-10-10 21:40] LABS: Glucose, Whole Blood 130 mg/dL (60-115)
[2023-10-11 03:16] VITALS: BP 143/65; PULSE 63; RESP 18; TEMP 36.1; O2SAT 98
[2023-10-11 06:30] LABS: Anion Gap 16 (12-20); Blood Urea Nitrogen 19 mg/dL (9-16); Calcium 8.3 mg/dL (8.4-10.2); Carbon Dioxide 24 mmol/L (22-29); Chloride 100 mmol/L (96-108); Creatinine Clr Calc Pharmacy 23.7; Estimated Glomerular Filt Rate 25; Glucose Random 116 mg/dL (60-115); Potassium 3.9 mmol/L (3.3-5.1); Sodium 136 mmol/L (135-145)
[2023-10-11] MEDS: Acetaminophen 325 MG TABLET 650 MG PO (07:17)
[2023-10-11] MEDS: Sevelamer Carbonate Tablet 800 MG TABLET PO (09:16)
[2023-10-11] MEDS: Heparin Sodium,Porcine 5,000 UNIT/ML VIAL 5000 UNIT SUBCUT (09:16)
[2023-10-11] MEDS: Doxycycline Monohydrate 100 MG CAPSULE PO (09:16)
[2023-10-11] MEDS: Valsartan 80 MG TABLET PO (09:16)
[2023-10-11] MEDS: Magnesium Oxide 400 MG TABLET PO (09:16)
[2023-10-11] MEDS: Clopidogrel Bisulfate 75 MG TABLET PO (09:16)
[2023-10-11] MEDS: polyethylene glycoL 3350 17 GM POWD.PACK PO (09:17)
[2023-10-11 09:21] VITALS: BP 154/73
[2023-10-11 11:20] LABS: Glucose, Whole Blood 219 mg/dL (60-115)
[2023-10-11] MEDS: Insulin Lispro 100 UNIT/ML 3 ML VIAL SUBCUT (11:39)
--- NOTE | 2023-10-11 12:15 | MHC.CM.PN ---
EMR reviewed. Per MD rounds patient is medically cleared for dc. CM met with patient and daughter/caregiver Adelita at bedside with indirect sales representative. PT recommending LTC or home w24/04 care. Patient and daughter prefer for patient to return home. Daughter and grandson will provide care. BLS transportation booked for 3pm. [employer] auth obtained, booking ID# [id number] RN, MD, patient and daughter aware. IMM delivered.
--- NOTE | 2023-10-11 12:19 | P.DS_ITS ---
DS: Providers Provider Date of Service: 10/11/23 Date of admission: 10/07/23 19:04 Primary care physician: Alexys Avila MD Consults: 10/07/23 19:05 Consult to Nephrology Routine Consulting Provider: Anil Beatty Reason for consultation: ESRD 10/09/23 12:52 Consult to Cardiology Routine Consulting Provider: [facility] Reason for consultation: new LBBB, chest pain DS: Diagnosis Discharge Diagnosis (1) Pulmonary edema: Status: Acute (2) Atypical chest pain: Status: Acute (3) Volume overload: Status: Acute DS: Summary Hospital Course Hospital Course: Admission note HPI This is a 68-year-old female with pertinent history of ESRD on hemodialysis (M/W/F), congestive heart failure with reduced ejection fraction, insulin- dependent type 2 diabetes mellitus, mixed hyperlipidemia, essential hypertension, history of CVA, mood disorder who presents to the emergency department for evaluation of dyspnea. Patient states it started 1 day prior to presentation. Dyspnea is worse when lying flat. Does have a history of missed hemodialysis sessions in the past. States underwent hemodialysis 1 day prior to presentation. Also has edema of right lower extremity. Patient states along with dyspnea, she had midsternal chest discomfort with resolved without in tervention. She was seen eating Canadian fries in the ER. No fever, chills, cough, palpitations, abdominal pain, changes in urinary or bowel habits. In the emergency department, imaging with cardiomegaly, pulmonary edema and elevated BNP. Hospital course #Acute respiratory distress with anasarca due to acute on chronic congestive heart failure with reduced ejection fraction, due to dietary noncompliance improved with ESRD on hemodialysis. Respiratory distress after dialysis. strict I&O. Daily weight. Cardiac/low sodium diet. Echo repeated per cardiology recommendations as Carvedilol dose increased to 12.5 mg bid and Amlodipine discontinued. She was started on Valsartan 80 mg bid. #Acute pneumonia CXR 10/09 shows right basilar pneumonia with small pleural effusion. Treated with IV ceftriaxone, doxycycline that was changed to Doxycycline and Ceftin on discharge. cultures remained negative. Plan Continue antibitoics as prescribed Increase Carvedilol to 12.5 mg twice daily Discontinue Amlodipine, Start Valsartan 80 mg twice daily Monitor fluid intake and follow dialysis as planned Time Attestation Discharge coordination time: Greater than 30 minutes Quality: Safe Use of Opioids Does Pt have an Active Cancer Diagnosis on the Problem List?: No Quality: Stroke Does the patient have a stroke diagnosis?: No Physical Exam Vital Signs: Vital Signs: Last Vital Signs Temp 96.9 F 10/11/23 03:16 Pulse 63 10/11/23 03:16 Resp 18 10/11/23 03:16 BP 154/73 H 10/11/23 09:21 Pulse Ox 98 10/11/23 03:16 O2 Del Method Room Air 10/11/23 03:16 BMI result Body Mass Index 31.0 Const: Other: Constitutional : Awake, interactive, not in distress Neck : Normal inspection, Supple Cardiovascular : RRR, no JVP, no lower extremity edema, PErmacath in place Respiratory : good bilateral air entry, no crackles, wheezes or rhonchi Gastrointestinal: soft, lax, Normal bowel sounds, Non tender Skin : Warm, Dry Neurological : Alert & oriented to self and place, No focal deficit DS: Data Data Completed and Pending Completed studies during hospitalization [Text1]: Procedures Detachment at Left Index Finger, Mid, Open Approach (09/15/22) Dilation of Esophagus, Via Natural or Artificial Opening Endoscopic (01/31/22) Dilation of Upper Esophagus, Via Natural or Artificial Opening Endoscopic (08/16/21) Fluoroscopy of Superior Vena Cava using Low Osmolar Contrast, Guidance (12/27/22) Insertion of Infusion Device into Superior Vena Cava, Percutaneous Approach (12/27/22) Introduction of Other Thrombolytic into Peripheral Vein, Percutaneous Approach (06/05/21) Performance of Urinary Filtration, Intermittent, Less than 6 Hours Per Day (09/21/23) Transfusion of Nonautologous Red Blood Cells into Peripheral Vein, Percutaneous Approach (12/27/22) Labs on day of discharge: Laboratory Results - last 24 hr 10/10/23 10/10/23 10/11/23 15:49 20:24 06:03 Hold Purple Top SEE NOTE Sodium 136 Potassium 3.9 Chloride 100 Carbon Dioxide 24 Anion Gap 16 BUN 19 H Creatinine 1.95 H Estim Creat Clear Calc 23.7 Estimated GFR 25 POC Glucose 190 H 130 H Random Glucose 116 H Calcium 8.3 L 10/11/23 11:16 Hold Purple Top Sodium Potassium Chloride Carbon Dioxide Anion Gap BUN Creatinine Estim Creat Clear Calc Estimated GFR POC Glucose 219 H Random Glucose Calcium Preliminary micro results at discharge 10/09/23 14:19 Blood Culture - Preliminary Blood - Venous No growth after 24 hours. 10/09/23 14:19 Blood Culture - Preliminary Blood - Venous No growth after 24 hours. Imaging Chest x-ray: Radiologist's impression: ITS Impressions Chest X-Ray 10/07/23 14:50 IMPRESSION: 1. Cardiomegaly with volume overload. 2. Right jugular dialysis catheter tip is in mid distal SVC. Abdomen/Pelvis CT 10/07/23 17:47 IMPRESSION: 1. No evidence of nephrolithiasis or hydroureteronephrosis. 2. Resolution of emphysematous cystitis. 3. Growing right sided pleural effusion and atelectasis in the right middle lobe. 4. Mild anasarca. Fleischner guidelines were followed. Chest X-Ray 10/09/23 10:17 IMPRESSION: Finding suggestive of right basilar pneumonia with small right pleural effusion. Discharge Plan Discharge Anticipated Discharge Date/Time: 10/11/23 10:49 Patient Disposition: Home, Self-Care Discharge Diagnosis: Fluid overload Referrals: Alexys Avila MD [Primary Care Provider] - 1 Week Discharge Medications: New carvedilol 12.5 mg Tablet 12.5 mg PO BIDWM Qty: 60 1RF Protocol: Hold for SBP/HR < HOLD for SBP < : 90 HOLD for HR < : 60 valsartan 80 mg Tablet 80 mg PO BID Qty: 60 1RF Protocol: Hold for SBP< HOLD for SBP < : 90 doxycycline monohydrate 100 mg Capsule 100 mg PO Q12H Qty: 8 0RF cefuroxime axetil 500 mg Tablet 500 mg PO Q24H Qty: 8 0RF Continued atorvastatin 80 mg tablet 80 mg PO BEDTIME clopidogrel 75 mg tablet 75 mg PO DAILY aspirin 81 mg tablet,delayed release (DR/EC) 81 mg PO BEDTIME insulin glargine [Lantus Solostar U-100 Insulin] 100 unit/mL (3 mL) insulin pen 20 unit subcut DAILY magnesium oxide 400 mg (241.3 mg magnesium) tablet 400 mg PO DAILY sevelamer carbonate 800 mg tablet 800 mg PO TID melatonin 5 mg tablet 10 mg PO BEDTIME albuterol sulfate 90 mcg/actuation HFA aerosol inhaler 2 inh inhalation Q4H PRN (Reason: shortness of breath or wheezing) (DME) lancets [OneTouch Delica Plus Lancet] 33 gauge misc See Rx Instructions .ROUTE TID Qty: 100 Rx Instructions: As directed (DME) pen needle, diabetic [Pentips] 32 gauge x 5/32 needle See Rx Instructions .ROUTE DIRECTED Qty: 1200 Rx Instructions: As directed (DME) OneTouch Ultra Test Strip See Rx Instructions .ROUTE TID Qty: 10 Rx Instructions: As directed insulin aspart U-100 [Novolog FlexPen U-100 Insulin] 100 unit/mL (3 mL) insulin pen 1 sliding scale dose subcut TIDAC Rx Instructions: 8-12 units SLIDING SCALE Discontinued amlodipine 5 mg tablet 5 mg PO DAILY carvedilol 6.25 mg tablet 6.25 mg PO BIDWM Rx Instructions: must administer with a meal/food - Take one tablet twice daily Discharge Orders: Discharge Order (Routine); Ordered 10/11/23 Ordered By: Jakub Rodriguez Diet: Advance to usual diet Activity on Discharge: As tolerated Stand Alone Forms: Patient Portal Discharge page Care Plan Goals: Read below Health Concerns: Read below Plan of Treatment: Read below Assessment: Continue antibitoics as prescribed Increase Carvedilol to 12.5 mg twice daily Discontinue Amlodipine, Start Valsartan 80 mg twice daily Monitor fluid intake and follow dialysis as planned
[2023-10-11 14:59] VITALS: BP 132/83; PULSE 59; RESP 16; TEMP 36.2; O2SAT 97
== END 2023-10-11 16:12 | disposition home or self-care (01) | DRG 291 ==
LOC: HO.ED 17:08 → HO.EDOVER 19:09 → HO.S3 10-08 15:12
PROVIDERS: Physician Assistant; Admitting Provider Student in an Organized Health Care Education/Training Program; Emergency Provider Emergency Medicine; PCP Internal Medicine; Visit Provider Student in an Organized Health Care Education/Training Program
DX: I13.2 Hypertensive heart and chronic kidney disease with heart failure and with stage 5 chronic kidney disease, or end stage renal disease (principal); I50.23 Acute on chronic systolic (congestive) heart failure; J18.9 Pneumonia, unspecified organism; N18.6 End stage renal disease; J91.8 Pleural effusion in other conditions classified elsewhere; Z99.2 Dependence on renal dialysis; Z91.119 Patient's noncompliance with dietary regimen due to unspecified reason; R07.89 Other chest pain; I44.7 Left bundle-branch block, unspecified; E66.9 Obesity, unspecified; Z68.31 Body mass index [BMI] 31.0-31.9, adult; D63.1 Anemia in chronic kidney disease; R29.6 Repeated falls; E11.22 Type 2 diabetes mellitus with diabetic chronic kidney disease; E11.65 Type 2 diabetes mellitus with hyperglycemia; Z71.3 Dietary counseling and surveillance; Z86.73 Personal history of transient ischemic attack (TIA), and cerebral infarction without residual deficits; Z20.822 Contact with and (suspected) exposure to COVID-19; Z79.4 Long term (current) use of insulin; Z79.02 Long term (current) use of antithrombotics/antiplatelets; Z79.82 Long term (current) use of aspirin; Z79.899 Other long term (current) drug therapy
CPT/HCPCS: 0241U; 36415; 71045; 74176; 80048; 80053; 81001; 82947; 83735; 83880; 84484; 85025; 85610; 87040; 90999; 93005; 93306; 94640; 97162; 99285; J0696; J1644; J1940; Q9957

== ENCOUNTER → 2023-10-07 14:22 | Outpatient (BNV) | payer OTHER, SELFPAY | PROVIDERS: Admitting Provider Student in an Organized Health Care Education/Training Program; Emergency Provider Emergency Medicine; Visit Provider Internal Medicine Cardiovascular Disease | DX: I45.81 Long QT syndrome (principal) | CPT/HCPCS: 93010 ==

== ENCOUNTER 2023-10-07 19:04 | Outpatient (BNV) | payer OTHER, SELFPAY | END 2023-10-10 07:00 | PROVIDERS: Admitting Provider Student in an Organized Health Care Education/Training Program; Emergency Provider Emergency Medicine; PCP Internal Medicine; Visit Provider Internal Medicine Cardiovascular Disease | DX: I35.0 Nonrheumatic aortic (valve) stenosis (principal); I34.81 Nonrheumatic mitral (valve) annulus calcification | CPT/HCPCS: 93306 ==

== ENCOUNTER 2023-10-07 19:04 | Outpatient (BNV) | payer OTHER, SELFPAY | END 2023-10-09 11:43 | PROVIDERS: Admitting Provider Student in an Organized Health Care Education/Training Program; Emergency Provider Emergency Medicine; PCP Internal Medicine; Visit Provider Internal Medicine Cardiovascular Disease | DX: I49.3 Ventricular premature depolarization (principal); R94.31 Abnormal electrocardiogram [ECG] [EKG] | CPT/HCPCS: 93010 ==

== ENCOUNTER → 2023-10-07 19:04 | Outpatient (BNV) | payer OTHER, SELFPAY | PROVIDERS: Admitting Provider Student in an Organized Health Care Education/Training Program; Emergency Provider Emergency Medicine; Visit Provider Student in an Organized Health Care Education/Training Program | DX: J81.0 Acute pulmonary edema (principal); R07.89 Other chest pain; E87.70 Fluid overload, unspecified | CPT/HCPCS: 99222; 99232; 99239 ==

== ENCOUNTER → 2023-10-07 19:04 | Outpatient (BNV) | payer OTHER, SELFPAY | PROVIDERS: Admitting Provider Student in an Organized Health Care Education/Training Program; Emergency Provider Emergency Medicine; PCP Internal Medicine; Visit Provider Internal Medicine Cardiovascular Disease | DX: R07.89 Other chest pain (principal); I50.20 Unspecified systolic (congestive) heart failure | CPT/HCPCS: 99222 ==

== ENCOUNTER 2023-10-25 05:54 | Emergency (ER) | payer OTHER, SELFPAY ==
--- NOTE | ~2023-10-25 | XR_ITS ---
EXAMINATION: XR CHEST CLINICAL INFORMATION: Cough COMPARISON: 10/09/2023 TECHNIQUE: Frontal view of the chest was obtained. FINDINGS: Right IJ catheter tip lies in the region of the cavoatrial junction. Lung volumes are symmetric. Patchy right basilar opacity appears similar to minimally improved compared to prior. No new consolidation bilaterally. No evidence of pneumothorax. Small right pleural effusion suspected. Trace left pleural effusion cannot be excluded. The cardiomediastinal silhouette is stable. No acute osseous findings are seen. XR/XR chest 1V IMPRESSION: Patchy right basilar opacity appears similar to minimally improved from 10/09/2023. Small right pleural effusion suspected.
[2023-10-25 06:05] VITALS: BP 158/67; BP 164/76; PULSE 60; RESP 20; O2SAT 97; O2SAT 98; BMI 38.1
--- NOTE | 2023-10-25 06:09 | ECG_ITS ---
Test Reason : SOB Blood Pressure : / mmHG Vent. Rate : 059 BPM Atrial Rate : 059 BPM P-R Int : 170 ms QRS Dur : 132 ms QT Int : 506 ms P-R-T Axes : 036 -25 198 degrees QTc Int : 500 ms Sinus bradycardia Non-specific intra-ventricular conduction block Cannot rule out Anterior infarct , age undetermined T wave abnormality, consider inferolateral ischemia Abnormal ECG When compared with ECG of 09-OCT-2023 12:39, Premature ventricular complexes are no longer Present Referred By: Maureen Young Electronically Signed By:Nik Lou
--- NOTE | 2023-10-25 06:35 | ED_ITS ---
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 Patient reports that her daughter smokes lot in the house and that her grandson is sick. Related Data Home Medications Medication Instructions Recorded Confirmed aspirin 81 mg tablet,delayed 81 mg PO BEDTIME 06/20/21 10/08/23 release atorvastatin 80 mg tablet 80 mg PO BEDTIME 06/20/21 10/08/23 clopidogrel 75 mg tablet 75 mg PO DAILY 06/20/21 10/08/23 insulin glargine 100 unit/mL (3 20 unit subcut DAILY 03/25/22 10/08/23 mL) subcutaneous pen (Lantus Solostar U-100 Insulin) magnesium oxide 400 mg (241.3 mg 400 mg PO DAILY 04/20/23 10/08/23 magnesium) tablet blood sugar diagnostic (OneTouch #10 ea 05/25/23 Ultra Test strips) insulin aspart U-100 100 unit/mL 1 sliding scale dose subcut TIDAC 05/25/23 10/08/23 (3 mL) subcutaneous pen (Novolog FlexPen U-100 Insulin aspart) lancets 33 gauge (OneTouch Delica #100 ea 05/25/23 Plus Lancet) pen needle, diabetic 32 gauge x #1,200 ea 05/25/2332 (Pentips) albuterol sulfate 90 mcg/actuation 2 inh inhalation Q4H PRN shortness 09/21/23 10/08/23 aerosol inhaler of breath or wheezing melatonin 5 mg tablet 10 mg PO BEDTIME 09/21/23 10/08/23 sevelamer carbonate 800 mg tablet 800 mg PO TID 10/08/23 10/08/23 Previous Rx's Medication Instructions Recorded carvedilol 12.5 mg tablet 12.5 mg PO BIDWM #60 tabs 10/11/23 cefuroxime axetil 500 mg tablet 500 mg PO Q24H #8 tabs 10/11/23 doxycycline monohydrate 100 mg 100 mg PO Q12H #8 caps 10/11/23 capsule valsartan 80 mg tablet 80 mg PO BID #60 tabs 10/11/23 Allergies Allergy/AdvReac Type Severity Reaction Status Date / Time latex [LATEX] Allergy Intermediate ITCHY Verified 05/25/23 09:18 Review of Systems Review of Systems: Pertinent positives and negatives as stated in HPI [facility] Past Medical History Source: nursing notes reviewed Medical History Heart failure with reduced ejection fraction Dialysis patient, noncompliant Chronic kidney disease Thrombocytopenia CKD (chronic kidney disease) stage 4, GFR 15-29 ml/min End stage renal disease Constipation 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 Normocytic anemia Urinary tract infection due to ESBL Klebsiella Chronic heart failure with preserved ejection fraction (HFpEF) Hypomagnesemia Acute on chronic renal failure Essential hypertension HLD (hyperlipidemia) Non-ST elevated myocardial infarction Diabetes mellitus Congestive heart failure Nonischemic cardiomyopathy Irritable bowel syndrome with diarrhea Gastroparesis GERD (gastroesophageal reflux disease) Surgical History H/O surgical amputation of finger History of laparoscopic cholecystectomy History of intestinal surgery Hx of eye surgery History of esophagogastroduodenoscopy (EGD) Hx of colonoscopy H/O: hysterectomy Family History Family History Father Lung cancer Mother Diabetes HTN (hypertension) Heart disease Sister Diabetes Heart disease Brother Heart disease Son Diabetes Daughter Diabetes Social History Social History Household Members: Family and Children Household Members Other:: SNF Housing: House Do you presently have visiting nurse or other home services: No Unable to assess alcohol history related to: Unknown Alcohol intake: never Comment: report called by previous shift RN Patient Tobacco Use Status: Never used Tobacco Smoked in Last 30 Days: No Second Hand Smoke Exposure: No Use of substances other than those prescribed or required for medical reasons: No Advance Directives: Yes Advance Directives on File: Yes Advance Directives Date on File: 01/04/23 service: No Current occupational status: disabled Physical Exam Vital Signs: Vital Signs: Last Vital Signs Pulse 60 10/25/23 06:05 Resp 20 10/25/23 06:05 BP 158/67 H 10/25/23 06:05 Pulse Ox 98 10/25/23 06:05 O2 Del Method Room Air 10/25/23 06:05 BMI result Body Mass Index 38.1 VITAL SIGNS: Reviewed. GENERAL: Well developed, well nourished, in no acute distress. HEAD: Normocephalic/atraumatic EYES: PERRLA, EOMI EARS: Ext canals without abnormality NOSE: Nares patent bilateral OROPHARYNX: no oral lesions noted, posterior pharynx clear NECK: Supple, no adenopathy LUNGS: Decreased breath sounds right base, mild tachypnea. SpO2<98> CARDIOVASCULAR: Regular rate and rhythm without noted murmurs, no JVD or lower extremity edema. ABDOMEN: Soft, non-tender, non-distended with bowel sounds. MUSCULOSKELETAL: No tenderness, deformities, or effusions noted on gross inspection. EXTREMITIES: No cyanosis, clubbing or edema. 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 Strength and sensation to light touch were grossly intact x 4. Medical Decision Making Medical Decision Making MDM Narrative: 68-year-old female with history and clinical presentation, DDX: CHF, viral illness, ACS felt to be less likely, no evidence to suggest pneumonia at this time although patient is experiencing shortness of breath but is noted to be oxygenating well. There are no acute changes on EKG. Signed out to Dr Guzmán - labs, CXR Differential Diagnosis Differential Diagnoses: The differential diagnosis associated with the presentation includes Please see the discussion Admission/Observation Consideration of admission/observation: Escalation of care including admission/observation considered Please see the discussion above Independent Interpretation I performed an independent interpretation of an: EKG Interpretation: Sinus bradycardia, HR-59, no STEMI, OH/QRS/QTC are consistent with prior EKG, there are no acute changes when compared to EKG from 10/09/2023. Discharge Plan Discharge Clinical Impression: Breath shortness Patient Disposition: Still a Patient Prescriptions: No Action atorvastatin 80 mg tablet 80 mg PO BEDTIME clopidogrel 75 mg tablet 75 mg PO DAILY aspirin 81 mg tablet,delayed release (DR/EC) 81 mg PO BEDTIME insulin glargine [Lantus Solostar U-100 Insulin] 100 unit/mL (3 mL) insulin pen 20 unit subcut DAILY magnesium oxide 400 mg (241.3 mg magnesium) tablet 400 mg PO DAILY sevelamer carbonate 800 mg tablet 800 mg PO TID carvedilol 12.5 mg Tablet 12.5 mg PO BIDWM Qty: 60 1RF Protocol: Hold for SBP/HR < HOLD for SBP < : 90 HOLD for HR < : 60 valsartan 80 mg Tablet 80 mg PO BID Qty: 60 1RF Protocol: Hold for SBP< HOLD for SBP < : 90 doxycycline monohydrate 100 mg Capsule 100 mg PO Q12H Qty: 8 0RF cefuroxime axetil 500 mg Tablet 500 mg PO Q24H Qty: 8 0RF melatonin 5 mg tablet 10 mg PO BEDTIME albuterol sulfate 90 mcg/actuation HFA aerosol inhaler 2 inh inhalation Q4H PRN (Reason: shortness of breath or wheezing) (DME) lancets [OneTouch Delica Plus Lancet] 33 gauge misc See Rx Instructions .ROUTE TID Qty: 100 Rx Instructions: As directed (DME) pen needle, diabetic [Pentips] 32 gauge x 5/32 needle See Rx Instructions .ROUTE DIRECTED Qty: 1200 Rx Instructions: As directed (DME) OneTouch Ultra Test Strip See Rx Instructions .ROUTE TID Qty: 10 Rx Instructions: As directed insulin aspart U-100 [Novolog FlexPen U-100 Insulin] 100 unit/mL (3 mL) insulin pen 1 sliding scale dose subcut TIDAC Rx Instructions: 8-12 units SLIDING SCALE
[2023-10-25 07:05] LABS: MANUAL DIFF FLAG NO
[2023-10-25 07:07] LABS: Basophils Percent Auto 0.4 % (0-2); Eosinophils Absolute Auto 0.2 X10*3/uL (0.0-0.4); Eosinophils Percent Auto 1.8 % (0-4); Hematocrit 35.5 % (37.0-47.0); Hemoglobin 11.2 g/dl (12.0-16.0); Imm Gran Abs Auto 0.05 X10*3/uL (0.00-0.03); Imm Gran Pct Auto 0.5 % (0.0-0.4); Lymphocytes Absolute Auto 1.5 X10*3/uL (1.2-4.9); Lymphocytes Percent Auto 14.5 % (20-40); Mean Corpuscular HGB Conc 31.5 g/dl (31.0-35.0); Mean Corpuscular Hemoglobin 27.5 pg (27.0-33.0); Mean Corpuscular Volume 87.2 fL (80.0-98.0); Mean Platelet Volume 10.7 fL (9.4-12.3); Monocytes Absolute Auto 0.8 X10*3/uL (0.1-1.2); Monocytes Percent Auto 7.4 % (2-11); Neutrophils Absolute Auto 7.7 x10*3/uL (2.0-8.3); Neutrophils Percent Auto 75.4 % (45-73); Platelet Count 172 X10*3/uL (160-400); Red Blood Count 4.07 X10*6/uL (4.20-5.50); Red Cell Distribution Width 14.4 % (11.0-16.0); White Blood Count 10.2 X10*3/uL (4.8-10.8)
[2023-10-25 07:15] LABS: INTERNATIONAL NORM RATIO 1.1 (0.9-1.1); Prothrombin Time 13.7 SEC (11.1-13.3)
[2023-10-25 07:26] LABS: COVID-19 Test Negative (Negative); IDNOW Serial# 08D9AD1C
[2023-10-25 07:27] LABS: IDNOW Serial# 152EDE1D; Influenza A Negative (Negative); Influenza B2 Negative (Negative)
[2023-10-25 07:34] VITALS: BP 144/66; PULSE 60; RESP 16; TEMP 36.3; O2SAT 100
[2023-10-25 07:52] LABS: Lactic Acid 0.8 mmol/L (0.5-2.0)
[2023-10-25 07:56] LABS: Alanine Aminotransferase 10 U/L (0-31); Albumin Level 3.3 g/dL (3.5-5.0); Alkaline Phosphatase 161 U/L (39-117); Anion Gap 18 (12-20); Aspartate Amino Transferase 15 U/L (5-31); Bilirubin Total 0.2 mg/dL (0.0-1.0); Blood Urea Nitrogen 68 mg/dL (9-16); Calcium 8.3 mg/dL (8.4-10.2); Carbon Dioxide 22 mmol/L (22-29); Chloride 105 mmol/L (96-108); Creatinine Clr Calc Pharmacy 8.6; Estimated Glomerular Filt Rate 10; Glucose Random 50 mg/dL (60-115); Sodium 139 mmol/L (135-145); Total Protein 7.1 g/dL (6.5-8.0)
[2023-10-25 08:02] LABS: B Type Natriuretic Peptide 2971 pg/mL (<100)
[2023-10-25 09:20] VITALS: BP 165/61; PULSE 61; RESP 14; TEMP 36.4; O2SAT 97
[2023-10-25 10:13] LABS: Glucose, Whole Blood 110 mg/dL (60-115)
== END 2023-10-25 10:47 | disposition other institution (70) ==
PROVIDERS: Student in an Organized Health Care Education/Training Program; Emergency Provider Emergency Medicine; PCP Internal Medicine
DX: R06.02 Shortness of breath (principal); R42 Dizziness and giddiness; R00.1 Bradycardia, unspecified; R05.9 Cough, unspecified; Z11.52 Encounter for screening for COVID-19; Z79.899 Other long term (current) drug therapy
CPT/HCPCS: 36415; 71045; 80053; 82947; 83605; 83880; 85025; 85610; 87040; 87502; 87635; 93005; 99283; 99285

== ENCOUNTER → 2023-10-25 06:09 | Outpatient (BNV) | payer OTHER, SELFPAY | PROVIDERS: Emergency Provider Emergency Medicine; PCP Internal Medicine; Visit Provider Internal Medicine Cardiovascular Disease | DX: R00.1 Bradycardia, unspecified (principal); R94.31 Abnormal electrocardiogram [ECG] [EKG] | CPT/HCPCS: 93010 ==

== ENCOUNTER 2023-11-18 17:08 | Observation (INO) | payer OTHER, SELFPAY ==
--- NOTE | ~2023-11-18 | XR_ITS ---
EXAMINATION: PORTABLE CHEST 1 VIEW CLINICAL INFORMATION: sob. COMPARISON: 10/25/2023. TECHNIQUE: Portable frontal view of the chest was obtained. FINDINGS: Lungs well-expanded with mild asymmetric elevation the right hemidiaphragm. Blunting both costophrenic angle suggests layering small bilateral effusions. There is central vascular prominence also similar to the prior study. Component of fluid overload would be difficult to exclude. Cardiac silhouette is prominent but unchanged. Right-sided dialysis catheter with tip near the expected cavoatrial junction. XR/XR chest 1V IMPRESSION: Overall the appearance is similar to the 10/25/2023 study. There is central vascular prominence and small layering bilateral effusions. Fluid overload would be difficult to exclude.
[2023-11-18 17:32] VITALS: BP 141/51; PULSE 68; RESP 16; TEMP 36.7; O2SAT 100; O2SAT 97; BMI 38.0
[2023-11-18 18:33] LABS: MANUAL DIFF FLAG NO
[2023-11-18 18:41] LABS: Basophils Percent Auto 0.3 % (0-2); Eosinophils Absolute Auto 0.1 X10*3/uL (0.0-0.4); Eosinophils Percent Auto 1.6 % (0-4); Hematocrit 36.9 % (37.0-47.0); Hemoglobin 11.4 g/dl (12.0-16.0); Imm Gran Abs Auto 0.03 X10*3/uL (0.00-0.03); Imm Gran Pct Auto 0.4 % (0.0-0.4); Lymphocytes Absolute Auto 1.1 X10*3/uL (1.2-4.9); Lymphocytes Percent Auto 16.2 % (20-40); Mean Corpuscular HGB Conc 30.9 g/dl (31.0-35.0); Mean Corpuscular Hemoglobin 27.1 pg (27.0-33.0); Mean Corpuscular Volume 87.6 fL (80.0-98.0); Mean Platelet Volume 11.2 fL (9.4-12.3); Monocytes Absolute Auto 0.6 X10*3/uL (0.1-1.2); Monocytes Percent Auto 8.6 % (2-11); Neutrophils Percent Auto 72.9 % (45-73); Platelet Count 117 X10*3/uL (160-400); Red Blood Count 4.21 X10*6/uL (4.20-5.50); Red Cell Distribution Width 14.2 % (11.0-16.0); White Blood Count 6.9 X10*3/uL (4.8-10.8)
[2023-11-18 18:59] LABS: Alanine Aminotransferase 11 U/L (0-31); Albumin Level 3.2 g/dL (3.5-5.0); Alkaline Phosphatase 198 U/L (39-117); Anion Gap 18 (12-20); Aspartate Amino Transferase 16 U/L (5-31); Bilirubin Total 0.3 mg/dL (0.0-1.0); Blood Urea Nitrogen 30 mg/dL (9-16); Calcium 8.4 mg/dL (8.4-10.2); Carbon Dioxide 26 mmol/L (22-29); Chloride 98 mmol/L (96-108); Creatinine Clr Calc Pharmacy 14.2; Estimated Glomerular Filt Rate 17; Glucose Random 373 mg/dL (60-115); Potassium 4.6 mmol/L (3.3-5.1); Sodium 137 mmol/L (135-145); Total Protein 6.8 g/dL (6.5-8.0)
[2023-11-18 19:10] LABS: IDNOW Serial# 152EDE1D; Influenza A Negative (Negative); Influenza B2 Negative (Negative)
[2023-11-18 19:11] LABS: COVID-19 Test Negative (Negative); IDNOW Serial# 08D9AD1C
[2023-11-18 19:55] LABS: B Type Natriuretic Peptide 4785 pg/mL (<100)
[2023-11-18] MEDS: Albuterol Sulfate 2.5 MG, Albuterol/Iprat 2.5/0.5MG 3 ML 3 ML INHALE (20:19)
[2023-11-18 20:23] VITALS: PULSE 66; RESP 16; O2SAT 95
[2023-11-18 20:44] VITALS: BP 179/57; PULSE 72; RESP 20; TEMP 36.8; O2SAT 95
--- NOTE | 2023-11-18 21:02 | ED.SOB ---
HPI - SOB/Dyspnea General Chief Complaint: Dyspnea Stated Complaint: Fever, per ems Time Seen by Provider: 11/18/23 18:46 Source: patient Mode of arrival: EMS History of Present Illness HPI Narrative: 68-year-old female with presentation and arrival via EMS Related Data Home Medications Medication Instructions Recorded Confirmed aspirin 81 mg tablet,delayed 81 mg PO BEDTIME 06/20/21 10/08/23 release atorvastatin 80 mg tablet 80 mg PO BEDTIME 06/20/21 10/08/23 clopidogrel 75 mg tablet 75 mg PO DAILY 06/20/21 10/08/23 insulin glargine 100 unit/mL (3 20 unit subcut DAILY 03/25/22 10/08/23 mL) subcutaneous pen (Lantus Solostar U-100 Insulin) magnesium oxide 400 mg (241.3 mg 400 mg PO DAILY 04/20/23 10/08/23 magnesium) tablet blood sugar diagnostic (OneTouch #10 ea 05/25/23 Ultra Test strips) insulin aspart U-100 100 unit/mL 1 sliding scale dose subcut TIDAC 05/25/23 10/08/23 (3 mL) subcutaneous pen (Novolog FlexPen U-100 Insulin aspart) lancets 33 gauge (OneTouch Delica #100 ea 05/25/23 Plus Lancet) pen needle, diabetic 32 gauge x #1,200 ea 05/25/23 (Pentips) albuterol sulfate 90 mcg/actuation 2 inh inhalation Q4H PRN shortness 09/21/23 10/08/23 aerosol inhaler of breath or wheezing melatonin 5 mg tablet 10 mg PO BEDTIME 09/21/23 10/08/23 sevelamer carbonate 800 mg tablet 800 mg PO TID 10/08/23 10/08/23 Previous Rx's Medication Instructions Recorded carvedilol 12.5 mg tablet 12.5 mg PO BIDWM #60 tabs 10/11/23 cefuroxime axetil 500 mg tablet 500 mg PO Q24H #8 tabs 10/11/23 doxycycline monohydrate 100 mg 100 mg PO Q12H #8 caps 10/11/23 capsule valsartan 80 mg tablet 80 mg PO BID #60 tabs 10/11/23 Allergies Allergy/AdvReac Type Severity Reaction Status Date / Time latex [LATEX] Allergy Intermediate ITCHY Verified 05/25/23 09:18 PMFSH Past Medical History Medical History Heart failure with reduced ejection fraction Dialysis patient, noncompliant Chronic kidney disease Thrombocytopenia CKD (chronic kidney disease) stage 4, GFR 15-29 ml/min End stage renal disease Constipation 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 Normocytic anemia Urinary tract infection due to ESBL Klebsiella Chronic heart failure with preserved ejection fraction (HFpEF) Hypomagnesemia Acute on chronic renal failure Essential hypertension HLD (hyperlipidemia) Non-ST elevated myocardial infarction Diabetes mellitus Congestive heart failure Nonischemic cardiomyopathy Irritable bowel syndrome with diarrhea Gastroparesis GERD (gastroesophageal reflux disease) Surgical History H/O surgical amputation of finger History of laparoscopic cholecystectomy History of intestinal surgery Hx of eye surgery History of esophagogastroduodenoscopy (EGD) Hx of colonoscopy H/O: hysterectomy Family History Family History Father Lung cancer Mother Diabetes HTN (hypertension) Heart disease Sister Diabetes Heart disease Brother Heart disease Son Diabetes Daughter Diabetes Social History Social History Household Members: Family and Children Household Members Other:: SNF Housing: House Do you presently have visiting nurse or other home services: No Unable to assess alcohol history related to: Unknown Alcohol intake: never Comment: report called by previous shift RN Patient Tobacco Use Status: Never used Tobacco Second Hand Smoke Exposure: No Advance Directives: Yes Advance Directives on File: Yes Advance Directives Date on File: 01/04/23 service: No Current occupational status: disabled Physical Exam Vital Signs: Vital Signs: Last Vital Signs Temp 98.3 F 11/18/23 20:44 Pulse 72 11/18/23 20:44 Resp 20 11/18/23 20:44 BP 179/57 H 11/18/23 20:44 Pulse Ox 95 11/18/23 20:44 O2 Del Method Room Air 11/18/23 20:44 BMI result Body Mass Index 38.0 VITAL SIGNS: Reviewed. GENERAL: Well developed, well nourished, in no acute distress. HEAD: Normocephalic/atraumatic EYES: PERRLA, EOMI EARS: Ext canals without abnormality NOSE: Nares patent bilateral OROPHARYNX: no oral lesions noted, posterior pharynx clear NECK: Supple, no adenopathy LUNGS: Mild tachypnea, rales bilaterally SpO2<95> CARDIOVASCULAR: Regular rate and rhythm without noted murmurs, no JVD or lower extremity edema. ABDOMEN: Soft, non-tender, non-distended with bowel sounds. MUSCULOSKELETAL: No tenderness, deformities, or effusions noted on gross inspection. EXTREMITIES: No cyanosis, clubbing or edema. SKIN: Inspection of the skin reveals no rashes NEUROLOGIC: Alert and oriented x 4. Strength and sensation to light touch were grossly intact x 4. Medications Administered Discontinued Medications Generic Name Dose Route Start Last Admin Trade Name Freq PRN Reason Stop Dose Admin Albuterol Sulfate 2.5 mg/ 0 mg 11/18/23 20:10 11/18/23 20:19 Albuterol/Ipratropium 3 ml INHALE 11/18/23 20:11 5 dose ONCE ONE Administration Medical Decision Making Medical Decision Making MDM Narrative: 68-year-old female with history and clinical presentation, DDX: CHF, chronic lung disease, pneumonia. Patient attends dialysis on Mondays and Fridays and states that she did attend dialysis yesterday. Patient reports she makes minimal urine Reviewed all investigations and hematologic indices are negative for leukocytosis or left shift, there is a stable normocytic anemia and mild thrombocytopenia the patient has had previously. Chemistry indices demonstrate chronically stable ESRD. She is noted to be hyperglycemic and demonstrates a significant elevation in BNP as well as findings on chest x-ray this suggest venous congestion. As patient does not make much urine, Lasix is not a resource. I am reaching out to Nephrology to inquire about a dialysis session inpatient. Viral testing negative for COVID-19/influenza. Chest x-ray demonstrates venous congestion with small bilateral effusions no evidence to suggest infiltrate. I did offer a 5 mg DuoNeb and patient reports some improvement of shortness of breath. Patient is feeling much improved, however remains mildly tachypneic. I discussed the case with Dr. Krause, nephrology, who will arrange for a dialysis session on Monday given that patient is short of breath secondary to pulmonary edema and pleural effusion Differential Diagnosis Differential Diagnoses: The differential diagnosis associated with the presentation includes Please see the discussion above Admission/Observation Consideration of admission/observation: Escalation of care including admission/observation considered Please see the discussion above Consult Healthcare Provider Management of the patient was discussed with: Hospitalist and Vp [employer] Please see the discussion above Lab Data MDM Lab Attestation statement: I reviewed the patient's lab results. Please see the discussion above 11/18/23 18:28 11/18/23 18:28 Labs: Lab Results 11/18/23 Range/Units 18:28 WBC 6.9 (4.8-10.8) X10*3/uL RBC 4.21 (4.20-5.50) X10*6/uL Hgb 11.4 L (12.0-16.0) g/dl Hct 36.9 L (37.0-47.0) % MCV 87.6 (80.0-98.0) fL MCH 27.1 (27.0-33.0) pg MCHC 30.9 L (31.0-35.0) g/dl RDW 14.2 (11.0-16.0) % Plt Count 117 L D (160-400) X10*3/uL MPV 11.2 (9.4-12.3) fL Immature Gran % (Auto) 0.4 (0.0-0.4) % Neut % (Auto) 72.9 (45-73) % Lymph % (Auto) 16.2 L (20-40) % [place] % (Auto) 8.6 (2-11) % Eos % (Auto) 1.6 (0-4) % Baso % (Auto) 0.3 (0-2) % Lymph # (Auto) 1.1 L (1.2-4.9) X10*3/uL [place] # (Auto) 0.6 (0.1-1.2) X10*3/uL Eos # (Auto) 0.1 (0.0-0.4) X10*3/uL Baso # (Auto) 0.0 (0.0-0.2) X10*3/uL Abs Immat Gran (auto) 0.03 (0.00-0.03) X10*3/uL Absolute Neuts (auto) 5.0 (2.0-8.3) x10*3/uL Absolute Nucleated RBC 0.000 (0.0-0.012) X10*3/uL Nucleated RBC % (auto) 0.0 (0.0-0.2) /100WBC Sodium 137 (135-145) mmol/L Potassium 4.6 D (3.3-5.1) mmol/L Chloride 98 (96-108) mmol/L Carbon Dioxide 26 (22-29) mmol/L Anion Gap 18 (12-20) BUN 30 H (9-16) mg/dL Creatinine 2.76 H (0.5-1.4) mg/dL Estim Creat Clear Calc 14.2 Estimated GFR 17 Random Glucose 373 H* (60-115) mg/dL Calcium 8.4 (8.4-10.2) mg/dL Total Bilirubin 0.3 (0.0-1.0) mg/dL AST 16 (5-31) U/L ALT 11 (0-31) U/L Alkaline Phosphatase 198 H (39-117) U/L B-Natriuretic Peptide 4785 H (<100) pg/mL Total Protein 6.8 (6.5-8.0) g/dL Albumin 3.2 L (3.5-5.0) g/dL COVID-19 (LUCIUS) Negative (Negative) COVID-19 Clin Com See Note Influenza Type A (IWONA) Negative (Negative) Influenza Type B (IWONA) Negative (Negative) Influenza A & B Note See Note Radiology Impression Discussion of test interpretation with radiology: I have reviewed the radiologist's reading. Radiologist Impression: Please see the discussion above External Record Review External record reviewed: Outpatient record, Prior outpatient labs and Prior outpatient radiology Chronic Conditions Patient?s care impacted by: Diabetes, Hypertension and Other ESRD on dialysis Critical Care Time Critical Care Time Critical Care Time: Yes Total Critical Care Time: 60 Attestation: I personally attest to this time spent taking care of the patient. Discharge Plan Discharge Clinical Impression: Breath shortness, Pulmonary edema, Hyperglycemia due to diabetes mellitus Patient Disposition: Admitted As Inpatient Prescriptions: No Action atorvastatin 80 mg tablet 80 mg PO BEDTIME clopidogrel 75 mg tablet 75 mg PO DAILY aspirin 81 mg tablet,delayed release (DR/EC) 81 mg PO BEDTIME insulin glargine [Lantus Solostar U-100 Insulin] 100 unit/mL (3 mL) insulin pen 20 unit subcut DAILY magnesium oxide 400 mg (241.3 mg magnesium) tablet 400 mg PO DAILY sevelamer carbonate 800 mg tablet 800 mg PO TID carvedilol 12.5 mg Tablet 12.5 mg PO BIDWM Qty: 60 1RF Protocol: Hold for SBP/HR < HOLD for SBP < : 90 HOLD for HR < : 60 valsartan 80 mg Tablet 80 mg PO BID Qty: 60 1RF Protocol: Hold for SBP< HOLD for SBP < : 90 doxycycline monohydrate 100 mg Capsule 100 mg PO Q12H Qty: 8 0RF cefuroxime axetil 500 mg Tablet 500 mg PO Q24H Qty: 8 0RF melatonin 5 mg tablet 10 mg PO BEDTIME albuterol sulfate 90 mcg/actuation HFA aerosol inhaler 2 inh inhalation Q4H PRN (Reason: shortness of breath or wheezing) (DME) lancets [OneTouch Delica Plus Lancet] 33 gauge misc See Rx Instructions .ROUTE TID Qty: 100 Rx Instructions: As directed (DME) pen needle, diabetic [Pentips] 32 gauge x 5/32 needle See Rx Instructions .ROUTE DIRECTED Qty: 1200 Rx Instructions: As directed (DME) OneTouch Ultra Test Strip See Rx Instructions .ROUTE TID Qty: 10 Rx Instructions: As directed insulin aspart U-100 [Novolog FlexPen U-100 Insulin] 100 unit/mL (3 mL) insulin pen 1 sliding scale dose subcut TIDAC Rx Instructions: 8-12 units SLIDING SCALE
--- NOTE | 2023-11-18 21:39 | P.HPHOSP_ITS ---
History of Present Illness Date of Service: 11/18/23 Chief Complaint: Dyspnea This is a 68-year-old female with pertinent history of ESRD on hemodialysis (M/W/F), congestive heart failure with reduced ejection fraction, insulin- dependent type 2 diabetes mellitus, mixed hyperlipidemia, essential hypertension, history of CVA, mood disorder who presents to the emergency department for evaluation of dyspnea. Patient states her symptoms have been ongoing for a while. Dyspnea is worse when lying flat. Does have a history of missed hemodialysis sessions in the past but her last hemodialysis session was 1 day prior to presentation. Also has edema of right lower extremity. She states that she is compliant with her home medications but does not remember the name of of her medication and states her daughter gives her all medications including insulin. No fever, chills, cough, palpitations, abdominal pain, changes in urinary or bowel habits. In the emergency department, imaging with cardiomegaly, pulmonary edema and elevated BNP. Review of Systems 2 Constitutional: Constitutional: Reports no additional constitutional complaints Cardiovascular: Cardiovascular: Reports dyspnea on exertion and Reports orthopnea Respiratory: Respiratory: Reports dyspnea on exertion Gastrointestinal: Gastrointestinal: Reports no additional gastrointestinal complaints Genitourinary: Genitourinary: Reports no additional female genitourinary complaints [facility] Medical History (Updated 11/18/23 @ 22:03 by Leopoldo Stafford MD) Heart failure with reduced ejection fraction Dialysis patient, noncompliant Chronic kidney disease Thrombocytopenia CKD (chronic kidney disease) stage 4, GFR 15-29 ml/min End stage renal disease Constipation Ischemic necrosis of finger Normocytic anemia Urinary tract infection due to ESBL Klebsiella Chronic heart failure with preserved ejection fraction (HFpEF) Hypomagnesemia Acute on chronic renal failure Essential hypertension HLD (hyperlipidemia) Non-ST elevated myocardial infarction Diabetes mellitus Congestive heart failure Nonischemic cardiomyopathy Irritable bowel syndrome with diarrhea Gastroparesis GERD (gastroesophageal reflux disease) Family History Father Lung cancer Mother Diabetes HTN (hypertension) Heart disease Sister Diabetes Heart disease Brother Heart disease Son Diabetes Daughter Diabetes Surgical History Status post amputation of finger H/O surgical amputation of finger History of laparoscopic cholecystectomy History of intestinal surgery Hx of eye surgery History of esophagogastroduodenoscopy (EGD) Hx of colonoscopy H/O: hysterectomy Social History Household Members: Family and Children Household Members Other:: SNF Housing: House Do you presently have visiting nurse or other home services: No Unable to assess alcohol history related to: Unknown Alcohol intake: never Comment: report called by previous shift RN Patient Tobacco Use Status: Never used Tobacco Second Hand Smoke Exposure: No Advance Directives: Yes Advance Directives on File: Yes Advance Directives Date on File: 01/04/23 service: No Current occupational status: disabled Meds Allergies Allergy/AdvReac Type Severity Reaction Status Date / Time latex [LATEX] Allergy Intermediate ITCHY Verified 05/25/23 09:18 Home Medications Medication Instructions Recorded Confirmed Last Taken Type aspirin 81 mg tablet,delayed 81 mg PO BEDTIME 06/20/21 10/08/23 09/20/23 History release atorvastatin 80 mg tablet 80 mg PO BEDTIME 06/20/21 10/08/23 09/20/23 History clopidogrel 75 mg tablet 75 mg PO DAILY 06/20/21 10/08/23 09/20/23 History insulin glargine 100 unit/mL (3 20 unit subcut DAILY 03/25/22 10/08/23 09/20/23 History mL) subcutaneous pen (Lantus Solostar U-100 Insulin) magnesium oxide 400 mg (241.3 mg 400 mg PO DAILY 04/20/23 10/08/23 09/20/23 History magnesium) tablet blood sugar diagnostic (OneTouch #10 ea 05/25/23 Unknown History Ultra Test strips) insulin aspart U-100 100 unit/mL 1 sliding scale dose subcut TIDAC 05/25/23 10/08/23 09/20/23 History (3 mL) subcutaneous pen (Novolog FlexPen U-100 Insulin aspart) lancets 33 gauge (OneTouch Delica #100 ea 05/25/23 Unknown History Plus Lancet) pen needle, diabetic 32 gauge x #1,200 ea 05/25/23 Unknown History (Pentips) albuterol sulfate 90 mcg/actuation 2 inh inhalation Q4H PRN shortness 09/21/23 10/08/23 Unknown History aerosol inhaler of breath or wheezing melatonin 5 mg tablet 10 mg PO BEDTIME 09/21/23 10/08/23 09/20/23 History sevelamer carbonate 800 mg tablet 800 mg PO TID 10/08/23 10/08/23 Unknown History Physical Exam 2 Vital Signs and Narrative: Vital Signs: Last Vital Signs Temp 98.3 F 11/18/23 20:44 Pulse 72 11/18/23 20:44 Resp 20 11/18/23 20:44 BP 179/57 H 11/18/23 20:44 Pulse Ox 95 11/18/23 20:44 O2 Del Method Room Air 11/18/23 20:44 BMI result Body Mass Index 38.0 Elderly female lying in bed in mild distress Neck supple, JVD + Regular rate and rhythm, S1-S2 heard Bilateral crackles appreciated Abdomen soft nontender, no guarding, no rigidity, no CVA tenderness Patient is awake, alert and oriented to self, place, time and person ; no focal motor deficit Psych: Normal mood Right lower extremity pedal edema, left AKA Results Labs 11/18/23 18:28 11/18/23 18:28 Labs: Laboratory Results - last 24 hr 11/18/23 18:28 MCV 87.6 MCH 27.1 MCHC 30.9 L RDW 14.2 Plt Count 117 L D MPV 11.2 Immature Gran % (Auto) 0.4 Neut % (Auto) 72.9 Lymph % (Auto) 16.2 L [place] % (Auto) 8.6 Eos % (Auto) 1.6 Baso % (Auto) 0.3 Lymph # (Auto) 1.1 L [place] # (Auto) 0.6 Eos # (Auto) 0.1 Baso # (Auto) 0.0 Abs Immat Gran (auto) 0.03 Absolute Neuts (auto) 5.0 Absolute Nucleated RBC 0.000 Nucleated RBC % (auto) 0.0 Anion Gap 18 Estim Creat Clear Calc 14.2 Estimated GFR 17 Random Glucose 373 H* Calcium 8.4 Total Bilirubin 0.3 AST 16 ALT 11 Alkaline Phosphatase 198 H B-Natriuretic Peptide 4785 H Total Protein 6.8 Albumin 3.2 L COVID-19 (LUCIUS) Negative COVID-19 Clin Com See Note Influenza Type A (IWONA) Negative Influenza Type B (IWONA) Negative Influenza A & B Note See Note Imaging Radiologist's Impressions: Impressions Chest X-Ray 11/18/23 18:31 IMPRESSION: Overall the appearance is similar to the 10/25/2023 study. There is central vascular prominence and small layering bilateral effusions. Fluid overload would be difficult to exclude. Assessment and Plan (1) Congestive heart failure: Status: Acute Plan This is a 68-year-old female with pertinent history of ESRD on hemodialysis (M/W/F), congestive heart failure with reduced ejection fraction, insulin- dependent type 2 diabetes mellitus, mixed hyperlipidemia, essential hypertension, history of CVA, mood disorder who presents to the emergency department for evaluation of dyspnea. #. Acute respiratory distress with anasarca due to acute on chronic congestive heart failure with reduced ejection fraction #. ESRD on hemodialysis -Nephrology consulted with plans for hemodialysis in a.m. Patient states she underwent hemodialysis session on 11/17 but does have history of missed dialysis sessions in the past. #.? Insulin-dependent type 2 diabetes mellitus with hyperglycemia:? ?if patient is on basal insulin.? Initiating Accu-Cheks with sliding scale insulin before meals and at bedtime #.? Essential hypertension: Conintue home antihypertensives #.? History of CVA: on plavix, aspirin and high-intensity statin #. Mood disorder. Continue mood stabilizers #. Obesity: Counseled regarding diet and weight loss Med rec pending DVT prophylaxis: Heparin Full code Low-salt diet Quality Stroke Does the patient have a stroke diagnosis?: No VTE Prior VTE?: No VTE Risk Level:: Medical - moderate - high VTE Device Contraindication: Treatment Not Indicated VTE Drug Contraindication: N/A - Med Ordered
[2023-11-18] MEDS: Heparin Sodium,Porcine 5,000 UNIT/ML VIAL 5000 UNIT SUBCUT (22:49)
--- NOTE | 2023-11-18 23:12 | PC.NURSE ---
assumed care of pt at 2300 - report received from Mireya FIELDS
[2023-11-19 01:53] VITALS: BP 162/61; PULSE 73; RESP 17; TEMP 36.6; O2SAT 98
[2023-11-19] MEDS: 0.9 % Sodium Chloride Flush 3 ML SYRINGE IVFLUSH ×4 (01:56→21:58)
--- NOTE | 2023-11-19 02:19 | PC.NURSE ---
late entry - per previous RN , aware that patient rarely makes urine d/t being a dialysis patient, therefore MD stated not to obtain straight catheter for urine sample.
--- NOTE | 2023-11-19 02:27 | PC.NURSE ---
verified with MD Stafford that patient does not make urine and urine sample not needed. pt symptoms related to fluid overload. pt resting comfortably on stretcher in no apparent distress, call peck within reach - plan of care ongoing
[2023-11-19 05:37] LABS: Basophils Percent Auto 0.3 % (0-2); Eosinophils Absolute Auto 0.2 X10*3/uL (0.0-0.4); Eosinophils Percent Auto 2.7 % (0-4); Hematocrit 37.2 % (37.0-47.0); Hemoglobin 11.5 g/dl (12.0-16.0); Imm Gran Abs Auto 0.03 X10*3/uL (0.00-0.03); Imm Gran Pct Auto 0.4 % (0.0-0.4); Lymphocytes Absolute Auto 1.3 X10*3/uL (1.2-4.9); Lymphocytes Percent Auto 19.4 % (20-40); MANUAL DIFF FLAG SCAN; Mean Corpuscular HGB Conc 30.9 g/dl (31.0-35.0); Mean Corpuscular Hemoglobin 27.5 pg (27.0-33.0); Mean Platelet Volume 12.3 fL (9.4-12.3); Monocytes Absolute Auto 0.6 X10*3/uL (0.1-1.2); Monocytes Percent Auto 8.8 % (2-11); Neutrophils Absolute Auto 4.6 x10*3/uL (2.0-8.3); Neutrophils Percent Auto 68.4 % (45-73); PLT CLUMP 1; Platelet Count 118 X10*3/uL (160-400); Red Blood Count 4.18 X10*6/uL (4.20-5.50); Red Cell Distribution Width 14.2 % (11.0-16.0); SCAN SMEAR FLAG 1; White Blood Count 6.7 X10*3/uL (4.8-10.8)
[2023-11-19 05:52] LABS: Anion Gap 16 (12-20); Blood Urea Nitrogen 32 mg/dL (9-16); Calcium 8.4 mg/dL (8.4-10.2); Carbon Dioxide 23 mmol/L (22-29); Chloride 101 mmol/L (96-108); Creatinine Clr Calc Pharmacy 13.1; Estimated Glomerular Filt Rate 15; Glucose Random 218 mg/dL (60-115); Potassium 4.4 mmol/L (3.3-5.1); Sodium 136 mmol/L (135-145)
[2023-11-19 06:03] LABS: SLIDE REVIEW VERIFIED
[2023-11-19 07:49] VITALS: BP 148/64; PULSE 71; RESP 14; O2SAT 95
[2023-11-19 08:01] LABS: Glucose, Whole Blood 203 mg/dL (60-115)
[2023-11-19] MEDS: Insulin Lispro 100 UNIT/ML 3 ML VIAL SUBCUT ×4 (08:23→21:56)
--- NOTE | 2023-11-19 09:52 | HO.PM.IMPN ---
Subjective Subjective Date of Service: 11/19/23 Physical Exam Vital Signs: Vital Signs: Last Vital Signs Temp 97.8 F 11/19/23 01:53 Pulse 71 11/19/23 07:49 Resp 14 11/19/23 07:49 BP 148/64 H 11/19/23 07:49 Pulse Ox 95 11/19/23 07:49 O2 Del Method Room Air 11/19/23 07:49 BMI result Body Mass Index 38.0 Objective Data Active Medications Acetaminophen (Acetaminophen 325 Mg Tablet) 650 mg PO Q6H PRN PRN Reason: Pain, Mild (Pain Scale 1-3) Dextrose (Dextrose 50 % 25 Gm/50 Ml Syringe) 25 gm IVPUSH Q15M PRN; Protocol PRN Reason: per Hypoglycemia Standing Ord. Glucose (Glucose Gel 15 Gm Gel..Gram.) 15 gm PO Q15M PRN; Protocol PRN Reason: per Hypoglycemia Standing Ord. Heparin Sodium (Porcine) (Heparin Sodium,Porcine 5,000 Unit/Ml Vial) 5,000 unit SUBCUT Q12H [facility] Last Admin: 11/18/23 22:49 Dose: 5,000 unit Documented By: MARCY Insulin Human Lispro (Insulin Lispro 100 Unit/Ml 3 Ml Vial) 0 unit SUBCUT QIDACHS [facility]; Protocol Last Admin: 11/19/23 08:23 Dose: 4 unit Documented By: DEEPAK Melatonin (Melatonin 3 Mg Tablet) 6 mg PO BEDTIME PRN PRN Reason: Insomnia Ondansetron HCl (Ondansetron Hcl 4 Mg/2 Ml Vial) 4 mg IVPUSH Q8H PRN PRN Reason: Nausea and Vomiting Sodium Chloride (0.9 % Sodium Chloride Flush 3 Ml Syringe) 3 ml IVFLUSH QSHIFT [facility] Last Admin: 11/19/23 08:24 Dose: 3 ml Documented By: DEEPAK Labs 11/19/23 05:16 11/19/23 05:16 Labs: Laboratory Results - last 24 hr 11/18/23 11/19/23 11/19/23 18:28 05:16 07:48 MCV 87.6 89.0 MCH 27.1 27.5 MCHC 30.9 L 30.9 L RDW 14.2 14.2 Plt Count 117 L D 118 L MPV 11.2 12.3 Immature Gran % (Auto) 0.4 0.4 Neut % (Auto) 72.9 68.4 Lymph % (Auto) 16.2 L 19.4 L [place] % (Auto) 8.6 8.8 Eos % (Auto) 1.6 2.7 Baso % (Auto) 0.3 0.3 Lymph # (Auto) 1.1 L 1.3 [place] # (Auto) 0.6 0.6 Eos # (Auto) 0.1 0.2 Baso # (Auto) 0.0 0.0 Abs Immat Gran (auto) 0.03 0.03 Absolute Neuts (auto) 5.0 4.6 Absolute Nucleated RBC 0.000 0.000 Nucleated RBC % (auto) 0.0 0.0 Smear Tech's Comments VERIFIED Anion Gap 18 16 Estim Creat Clear Calc 14.2 13.1 Estimated GFR 17 15 POC Glucose 203 H Random Glucose 373 H* 218 H Calcium 8.4 8.4 Total Bilirubin 0.3 AST 16 ALT 11 Alkaline Phosphatase 198 H B-Natriuretic Peptide 4785 H Total Protein 6.8 Albumin 3.2 L COVID-19 (LUCIUS) Negative COVID-19 Clin Com See Note Influenza Type A (IWONA) Negative Influenza Type B (IWONA) Negative Influenza A & B Note See Note Assessment and Plan (1) Congestive heart failure: Status: Acute Plan This is a 68-year-old female with pertinent history of ESRD on hemodialysis (M/W/F), congestive heart failure with reduced ejection fraction, insulin-dependent type 2 diabetes mellitus, mixed hyperlipidemia, essential hypertension, history of CVA, mood disorder who presents to the emergency department for evaluation of dyspnea. Acute respiratory distress with no hypoxia anasarca likely due to acute on chronic congestive heart failure with reduced ejection fraction BNP 4785 will need dialysis today nephrology consultation pending not much utility in lasix as patient is anuric ESRD on hemodialysis Nephrology consulted with plans for hemodialysis in a.m. Patient states she underwent hemodialysis session on 11/17 but does have history of missed dialysis sessions in the past. Insulin-dependent type 2 diabetes mellitus with hyperglycemia ss, ada diet Essential hypertension Continue home antihypertensives History of CVA on plavix, aspirin and high-intensity statin Mood disorder Continue mood stabilizers Obesity. BMI 38.0 Discussed importance of weight management as this may be contributing to worsening of other comorbidities DVT prophylaxis: Heparin Attending Dr. Waters Full code Continue hospitalization for end-stage renal disease necessitating dialysis due to acute respiratory distress with anasarca Quality Stroke Does the patient have a stroke diagnosis?: No VTE Prior VTE?: No VTE Risk Level:: Medical - moderate - high VTE Device Contraindication: Treatment Not Indicated VTE Drug Contraindication: N/A - Med Ordered
[2023-11-19] MEDS: Heparin Sodium,Porcine 5,000 UNIT/ML VIAL 5000 UNIT SUBCUT ×2 (10:46→21:57)
--- NOTE | 2023-11-19 10:51 | PC.NURSE ---
PT ASSISTED UP TO COMMODE FOR LARGE BM. PT IN NAD. AWAITING DIALYSIS ORDER, IN CONTACT WITH HOSPITALIST.
[2023-11-19 10:52] LABS: Glucose, Whole Blood 211 mg/dL (60-115)
[2023-11-19 12:03] VITALS: BP 162/58; PULSE 71; RESP 17; O2SAT 99
[2023-11-19 13:00] VITALS: BP 136/75; PULSE 71; RESP 20; TEMP 36.4; O2SAT 95
[2023-11-19 13:08] LABS: Glucose, Whole Blood 213 mg/dL (60-115)
--- NOTE | 2023-11-19 13:36 | HO.SKINPHOTO ---
Location: Buttocks Category: Blanchable Redness Stage: Length: Width: Depth: cm Location: Category: Stage: Length: Width: Depth: cm Location: Category: Stage: Length: Width: Depth: cm Location: Category: Stage: Length: Width: Depth: cm Location: Category: Stage: Length: Width: Depth: cm Location: Category: Stage: Length: Width: Depth: cm
--- NOTE | 2023-11-19 14:25 | PHA.MEDREC ---
Addendum entered by Betsey Patel [facility] 11/19/23 14:39: Vitamin D was not reported / included on med list . Both patient and daughter were not aware of medication. Original Note: Pharmacy Consult ? Medication Reconciliation Pharmacy has completed the medication reconciliation. Daughter brought medication bottles from home. Daughter confirmed Lantus 20 units at bedtime (last filled in june) and Novolog is used with sliding scale when her sugars are >200. Clopidogrel and amlodipine were last filled for a 30 DS in August but still had pills in the bottle. Patient reports that her doctor took her off of furosemide and is concerned about retaining fluid.
[2023-11-19 15:38] VITALS: BP 130/85; PULSE 75; RESP 17; TEMP 36.2; O2SAT 95
[2023-11-19 16:40] LABS: Glucose, Whole Blood 279 mg/dL (60-115)
[2023-11-19 19:28] VITALS: BP 182/80; PULSE 78; RESP 19; TEMP 36.2; O2SAT 95
[2023-11-19 21:08] LABS: Glucose, Whole Blood 161 mg/dL (60-115)
[2023-11-19] MEDS: Melatonin 3 MG TABLET 6 MG PO (21:55)
[2023-11-20 04:00] VITALS: BP 130/60; PULSE 71; RESP 16; TEMP 36.3; O2SAT 96
[2023-11-20 07:53] LABS: Glucose, Whole Blood 164 mg/dL (60-115)
[2023-11-20 08:00] VITALS: BP 136/70; PULSE 70; RESP 17; TEMP 36.6; O2SAT 95
[2023-11-20] MEDS: Insulin Lispro 100 UNIT/ML 3 ML VIAL SUBCUT (08:27)
[2023-11-20] MEDS: 0.9 % Sodium Chloride Flush 3 ML SYRINGE IVFLUSH (08:30)
--- NOTE | 2023-11-20 09:11 | MHC.CLN ---
NUTRITION REVIEW OF WEIGHT HX SHOWS WEIGHT STABLE X 9 MONTHS. NO ADDITIONAL NUTRITION INTERVENTIONS.
--- NOTE | 2023-11-20 09:16 | MHC.CLN ---
NUTRITION REVIEW OF WEIGHT HX SHOWS WEIGHT STABLE X 9 MONTHS. PATIENT WITH DX DM AND ESRD ON HEMODIALYSIS. DIET CHANGED TO DIABETIC 1800 KCALS, 2 G SODIUM.
[2023-11-20] MEDS: Acetaminophen 325 MG TABLET 650 MG PO (10:26)
--- NOTE | 2023-11-20 10:30 | PM.CNNEP ---
History of Present Illness Reason for Consult Consult date: 11/20/23 Chief Complaint Chief complaint: Dyspnea History of Present Illness Narrative: 68 year old patient with history of ESRD admitted with CHF. At the time of the consultation she is having dialysis. In summary she presented to the hospital with shortness of breath. Review of Systems Review of Systems 10 point ROS negative except for pertinent in HPI PMFSH Past Medical History Medical History (Updated 11/20/23 @ 10:34 by Leo Monroe MD) Anemia End stage renal disease Heart failure with reduced ejection fraction Dialysis patient, noncompliant Chronic kidney disease Thrombocytopenia CKD (chronic kidney disease) stage 4, GFR 15-29 ml/min Constipation Ischemic necrosis of finger Normocytic anemia Urinary tract infection due to ESBL Klebsiella Chronic heart failure with preserved ejection fraction (HFpEF) Hypomagnesemia Acute on chronic renal failure Essential hypertension HLD (hyperlipidemia) Non-ST elevated myocardial infarction Diabetes mellitus Congestive heart failure Nonischemic cardiomyopathy Irritable bowel syndrome with diarrhea Gastroparesis GERD (gastroesophageal reflux disease) Family History Family History Father Lung cancer Mother Diabetes HTN (hypertension) Heart disease Sister Diabetes Heart disease Brother Heart disease Son Diabetes Daughter Diabetes Surgical History Surgical History Status post amputation of finger H/O surgical amputation of finger History of laparoscopic cholecystectomy History of intestinal surgery Hx of eye surgery History of esophagogastroduodenoscopy (EGD) Hx of colonoscopy H/O: hysterectomy Social History Social History Household Members: Children Household Members Other:: SNF Housing: Apartment Do you presently have visiting nurse or other home services: No Unable to assess alcohol history related to: Unknown Alcohol intake: never Comment: report called by previous shift RN Patient Tobacco Use Status: Never used Tobacco Second Hand Smoke Exposure: No Advance Directives Date on File: 01/04/23 service: No Current occupational status: disabled Meds Allergies Allergy/AdvReac Type Severity Reaction Status Date / Time latex [LATEX] Allergy Intermediate ITCHY Verified 05/25/23 09:18 Active Medications: Current Medications Acetaminophen (Acetaminophen 325 Mg Tablet) 650 mg PO Q6H PRN PRN Reason: Pain, Mild (Pain Scale 1-3) Last Admin: 11/20/23 10:26 Dose: 650 mg Dextrose (Dextrose 50 % 25 Gm/50 Ml Syringe) 25 gm IVPUSH Q15M PRN; Protocol PRN Reason: per Hypoglycemia Standing Ord. Glucose (Glucose Gel 15 Gm Gel..Gram.) 15 gm PO Q15M PRN; Protocol PRN Reason: per Hypoglycemia Standing Ord. Heparin Sodium (Porcine) (Heparin Sodium,Porcine 5,000 Unit/Ml Vial) 5,000 unit SUBCUT Q12H [facility] Last Admin: 11/19/23 21:57 Dose: 5,000 unit Insulin Human Lispro (Insulin Lispro 100 Unit/Ml 3 Ml Vial) 0 unit SUBCUT QIDACHS [facility]; Protocol Last Admin: 11/20/23 08:27 Dose: 2 unit Melatonin (Melatonin 3 Mg Tablet) 6 mg PO BEDTIME PRN PRN Reason: Insomnia Last Admin: 11/19/23 21:55 Dose: 6 mg Ondansetron HCl (Ondansetron Hcl 4 Mg/2 Ml Vial) 4 mg IVPUSH Q8H PRN PRN Reason: Nausea and Vomiting Sodium Chloride (0.9 % Sodium Chloride Flush 3 Ml Syringe) [facility] Last Admin: 11/20/23 08:30 Dose: 3 ml Home Medications Medication Instructions Recorded Confirmed Last Taken Type aspirin 81 mg tablet,delayed 81 mg PO BEDTIME 06/20/21 11/19/23 09/20/23 History release atorvastatin 80 mg tablet 80 mg PO BEDTIME 06/20/21 11/19/23 09/20/23 History clopidogrel 75 mg tablet 75 mg PO DAILY 06/20/21 11/19/23 09/20/23 History insulin glargine 100 unit/mL (3 20 unit subcut BEDTIME 03/25/22 11/19/23 09/20/23 History mL) subcutaneous pen (Lantus Solostar U-100 Insulin) magnesium oxide 400 mg (241.3 mg 400 mg PO DAILY 04/20/23 11/19/23 09/20/23 History magnesium) tablet blood sugar diagnostic (OneTouch #10 ea 05/25/23 Unknown History Ultra Test strips) insulin aspart U-100 100 unit/mL 1 sliding scale dose subcut 05/25/23 11/19/23 09/20/23 History (3 mL) subcutaneous pen (Novolog NEEDED PRN bs >200 FlexPen U-100 Insulin aspart) lancets 33 gauge (OneTouch Delica #100 ea 05/25/23 Unknown History Plus Lancet) pen needle, diabetic 32 gauge x #1,200 ea 05/25/23 Unknown History (Pentips) albuterol sulfate 90 mcg/actuation 2 inh inhalation Q4H PRN shortness 09/21/23 11/19/23 Unknown History aerosol inhaler of breath or wheezing melatonin 5 mg tablet 5 - 10 mg PO BEDTIME PRN Sleep 09/21/23 11/19/23 09/20/23 History sevelamer carbonate 800 mg tablet 800 mg PO TIDWM 10/08/23 11/19/23 Unknown History amlodipine 5 mg tablet 5 mg PO DAILY 11/19/23 11/19/23 Unknown History Physical Exam Vital Signs: Last Vital Signs Temp 97.8 F 11/20/23 08:00 Pulse 70 11/20/23 08:00 Resp 17 11/20/23 08:00 BP 136/70 11/20/23 08:00 Pulse Ox 95 11/20/23 08:00 O2 Del Method Room Air 11/20/23 08:00 O2 Flow Rate 1 11/19/23 12:03 BMI result Body Mass Index 38.0 Const General: alert and awake HEENT Head: Yes normocephalic and Yes atraumatic Neck Neck: Yes supple Resp Auscultation: diminished lung sounds Cardio Heart sounds: S1 normal heart sound present and S2 normal heart sound present GI Palpation (GI): Soft to palpation and nontender Neuro General: moves all extremities Extrem General: Yes normal to inspection Results Lab Results 11/19/23 05:16 11/19/23 05:16 Lab results: Chemistry 11/18/23 11/19/23 18:28 05:16 Sodium 137 136 Potassium 4.6 D 4.4 Carbon Dioxide 26 23 BUN 30 H 32 H Creatinine 2.76 H 3.00 H Calcium 8.4 8.4 Hematology 11/18/23 11/19/23 18:28 05:16 WBC 6.9 6.7 Hgb 11.4 L 11.5 L Plt Count 117 L D 118 L Assessment and Plan (1) End stage renal disease: Status: Acute (2) Anemia: Status: Acute Plan usually has HD at [facility] m-w- followed by Jian Chao admitted with total volume overload nephrogenic anemia REC HD today optimize volume status no need for GABE phosphate binders renal diet Procedures Date of Service Date of Service: 11/20/23
--- NOTE | 2023-11-20 12:34 | P.PNIM_ITS ---
Subjective Subjective Date of Service: 11/20/23 Review of Systems Follow up dyspnea feeling better Physical Exam 2 Vital Signs: Vital Signs: Last Vital Signs Temp 97.8 F 11/20/23 08:00 Pulse 70 11/20/23 08:00 Resp 17 11/20/23 08:00 BP 136/70 11/20/23 08:00 Pulse Ox 95 11/20/23 08:00 O2 Del Method Room Air 11/20/23 08:00 O2 Flow Rate 1 11/19/23 12:03 BMI result Body Mass Index 38.0 Appearing in no acute distress lung sounds are clear to auscultation heart regular rate rhythm, clear S1, S2 positive bowel sounds, abdomen is soft, nontender neuro patient is alert x3, no focal deficits Objective Data Active Medications Acetaminophen (Acetaminophen 325 Mg Tablet) 650 mg PO Q6H PRN PRN Reason: Pain, Mild (Pain Scale 1-3) Last Admin: 11/20/23 10:26 Dose: 650 mg Documented By: RUSS Dextrose (Dextrose 50 % 25 Gm/50 Ml Syringe) 25 gm IVPUSH Q15M PRN; Protocol PRN Reason: per Hypoglycemia Standing Ord. Glucose (Glucose Gel 15 Gm Gel..Gram.) 15 gm PO Q15M PRN; Protocol PRN Reason: per Hypoglycemia Standing Ord. Heparin Sodium (Porcine) (Heparin Sodium,Porcine 5,000 Unit/Ml Vial) 5,000 unit SUBCUT Q12H [facility] Last Admin: 11/20/23 11:03 Dose: Not Given Documented By: ADRIAN Non-Admin Reason: Off unit: Dialysis Insulin Human Lispro (Insulin Lispro 100 Unit/Ml 3 Ml Vial) 0 unit SUBCUT QIDACHS [facility]; Protocol Last Admin: 11/20/23 08:27 Dose: 2 unit Documented By: ADRIAN Melatonin (Melatonin 3 Mg Tablet) 6 mg PO BEDTIME PRN PRN Reason: Insomnia Last Admin: 11/19/23 21:55 Dose: 6 mg Documented By: JEANNETTE Ondansetron HCl (Ondansetron Hcl 4 Mg/2 Ml Vial) 4 mg IVPUSH Q8H PRN PRN Reason: Nausea and Vomiting Sodium Chloride (0.9 % Sodium Chloride Flush 3 Ml Syringe) 3 ml IVFLUSH QSHIFT [facility] Last Admin: 11/20/23 08:30 Dose: 3 ml Documented By: ADRIAN Labs 11/19/23 05:16 11/19/23 05:16 Labs: Laboratory Results - last 24 hr 11/19/23 11/19/23 11/19/23 13:05 16:35 20:33 POC Glucose 213 H 279 H 161 H 11/20/23 07:27 POC Glucose 164 H Assessment and Plan (1) Congestive heart failure: Status: Acute Plan This is a 68-year-old female with pertinent history of ESRD on hemodialysis (M/W/F), congestive heart failure with reduced ejection fraction, insulin- dependent type 2 diabetes mellitus, mixed hyperlipidemia, essential hypertension, history of CVA, mood disorder who presents to the emergency department for evaluation of dyspnea. Acute respiratory distress with no hypoxia, anasarca likely due to acute on chronic congestive heart failure with reduced ejection fraction BNP 4785 nephrology consultation not much utility in lasix as patient is anuric had dialysis today ESRD on hemodialysis Nephrology consulted with plans for hemodialysis Patient states she underwent hemodialysis session on 11/17 but does have history of missed dialysis sessions in the past. Insulin-dependent type 2 diabetes mellitus with hyperglycemia ss, ada diet Essential hypertension Continue home antihypertensives History of CVA on plavix, aspirin and high-intensity statin Mood disorder Continue mood stabilizers Obesity. BMI 38.0 Discussed importance of weight management as this may be contributing to worsening of other comorbidities DVT prophylaxis: Heparin Attending Dr. Waters Full code Continue hospitalization for end-stage renal disease necessitating dialysis due to acute respiratory distress with anasarca Quality Stroke Does the patient have a stroke diagnosis?: No VTE Prior VTE?: No VTE Risk Level:: Medical - moderate - high VTE Device Contraindication: Treatment Not Indicated VTE Drug Contraindication: N/A - Med Ordered
--- NOTE | 2023-11-20 12:41 | PM.DS ---
DS: Providers Provider Date of Service: 11/20/23 Date of admission: 11/18/23 21:38 Primary care physician: Alexys Avila MD Consults: 11/18/23 21:38 Consult to Nephrology Routine Consulting Provider: [facility] Reason for consultation: CHF exacerbation on HD 11/19/23 14:46 Consult to Wound Care Routine Reason for consultation: Blanchable redness to buttocks. DS: Diagnosis Discharge Diagnosis (1) Congestive heart failure: Status: Acute DS: Summary Hospital Course Hospital Course: History and physical as per admitting provider. This is a 68-year-old female with pertinent history of ESRD on hemodialysis (M/W/F), congestive heart failure with reduced ejection fraction, insulin-dependent type 2 diabetes mellitus, mixed hyperlipidemia, essential hypertension, history of CVA, mood disorder who presents to the emergency department for evaluation of dyspnea. Patient states her symptoms have been ongoing for a while. Dyspnea is worse when lying flat. Does have a history of missed hemodialysis sessions in the past but her last hemodialysis session was 1 day prior to presentation. Also has edema of right lower extremity. She states that she is compliant with her home medications but does not remember the name of of her medication and states her daughter gives her all medications including insulin. No fever, chills, cough, palpitations, abdominal pain, changes in urinary or bowel habits. In the emergency department, imaging with cardiomegaly, pulmonary edema and elevated BNP. 68-year-old woman treated for acute respiratory distress without hypoxia secondary to mild fluid overload necessitating dialysis. Had dialysis today. Anuric so not treated with Lasix. Oxygen saturation stable not requiring oxygen. Patient no longer has shortness of breath and plan is for discharge home. She should follow-up with her regular dialysis schedule outpatient. End-stage renal disease on dialysis, Monday, , Monday Diabetes mellitus type 2. Continue home medications Hypertension. Continue home medications History of CVA. Continue aspirin, Plavix and statin Mental health. Continue home medications Obesity. BMI 38.0 Discussed importance of weight management as this may be contributing to worsening of other comorbidities Time Attestation Discharge coordination time: Greater than 30 minutes Quality: Safe Use of Opioids Does Pt have an Active Cancer Diagnosis on the Problem List?: No Quality: Stroke Does the patient have a stroke diagnosis?: No Physical Exam Vital Signs: Vital Signs: Last Vital Signs Temp 97.8 F 11/20/23 08:00 Pulse 70 11/20/23 08:00 Resp 17 11/20/23 08:00 BP 136/70 11/20/23 08:00 Pulse Ox 95 11/20/23 08:00 O2 Del Method Room Air 11/20/23 08:00 O2 Flow Rate 1 11/19/23 12:03 BMI result Body Mass Index 38.0 Appearing in no acute distress head is normocephalic atraumatic eyes pupils are PERRLA sclera is anicteric mouth throat mucous membranes are intact and moist neck is supple no lymphadenopathy, no JVD noted lung sounds are clear to auscultation heart regular rate rhythm, clear S1, S2 positive bowel sounds, abdomen is soft, nontender neuro patient is alert x3, no focal deficits DS: Data Data Completed and Pending Completed studies during hospitalization [Text1]: Procedures Detachment at Left Index Finger, Mid, Open Approach (09/15/22) Dilation of Esophagus, Via Natural or Artificial Opening Endoscopic (01/31/22) Dilation of Upper Esophagus, Via Natural or Artificial Opening Endoscopic (08/16/21) Fluoroscopy of Superior Vena Cava using Low Osmolar Contrast, Guidance (12/27/22) Insertion of Infusion Device into Superior Vena Cava, Percutaneous Approach (12/27/22) Introduction of Other Thrombolytic into Peripheral Vein, Percutaneous Approach (06/05/21) Performance of Urinary Filtration, Intermittent, Less than 6 Hours Per Day (10/07/23) Transfusion of Nonautologous Red Blood Cells into Peripheral Vein, Percutaneous Approach (12/27/22) Labs on day of discharge: Laboratory Results - last 24 hr 11/19/23 11/19/23 11/19/23 13:05 16:35 20:33 POC Glucose 213 H 279 H 161 H 11/20/23 07:27 POC Glucose 164 H Discharge Plan Discharge Anticipated Discharge Date/Time: 11/20/23 12:39 Patient Disposition: Home Health Service Discharge Diagnosis: Acute respiratory failure with no hypoxia Anasarca End-stage renal disease on hemodialysis Referrals: Alexys Avila MD [Primary Care Provider] - 1 Week Discharge Medications: Continued atorvastatin 80 mg tablet 80 mg PO BEDTIME clopidogrel 75 mg tablet 75 mg PO DAILY aspirin 81 mg tablet,delayed release (DR/EC) 81 mg PO BEDTIME insulin glargine [Lantus Solostar U-100 Insulin] 100 unit/mL (3 mL) insulin pen 20 unit subcut BEDTIME magnesium oxide 400 mg (241.3 mg magnesium) tablet 400 mg PO DAILY sevelamer carbonate 800 mg tablet 800 mg PO TIDWM carvedilol 12.5 mg Tablet 12.5 mg PO BIDWM Qty: 60 1RF Protocol: Hold for SBP/HR < HOLD for SBP < : 90 HOLD for HR < : 60 valsartan 80 mg Tablet 80 mg PO BID Qty: 60 1RF Protocol: Hold for SBP< HOLD for SBP < : 90 amlodipine 5 mg tablet 5 mg PO DAILY melatonin 5 mg tablet 5 - 10 mg PO BEDTIME PRN (Reason: Sleep) albuterol sulfate 90 mcg/actuation HFA aerosol inhaler 2 inh inhalation Q4H PRN (Reason: shortness of breath or wheezing) (DME) lancets [OneTouch Delica Plus Lancet] 33 gauge misc See Rx Instructions .ROUTE TID Qty: 100 Rx Instructions: As directed (DME) pen needle, diabetic [Pentips] 32 gauge x 5/32 needle See Rx Instructions .ROUTE DIRECTED Qty: 1200 Rx Instructions: As directed (DME) OneTouch Ultra Test Strip See Rx Instructions .ROUTE TID Qty: 10 Rx Instructions: As directed insulin aspart U-100 [Novolog FlexPen U-100 Insulin] 100 unit/mL (3 mL) insulin pen 1 sliding scale dose subcut NEEDED PRN (Reason: bs >200) Rx Instructions: 8-12 units SLIDING SCALE Discharge Orders: Discharge Order (Routine); Ordered 11/20/23 Ordered By: Maria Luisa Matos Diet: Advance to usual diet Activity on Discharge: As tolerated Stand Alone Forms: Patient Portal Discharge page Care Plan Goals: Complete resolution of symptoms Health Concerns: Acute respiratory failure with no hypoxia Anasarca End-stage renal disease on hemodialysis Plan of Treatment: Follow-up with primary care provider as needed Take all medications as prescribed Assessment: Discharge summary
[2023-11-20 12:44] VITALS: BP 134/78; PULSE 65; RESP 17; TEMP 36.3; O2SAT 98
[2023-11-20 12:45] LABS: Glucose, Whole Blood 127 mg/dL (60-115)
--- NOTE | 2023-11-20 14:13 | HO.WOUND ---
Wound Consult: Initial 68yr old? F admitted to [facility] on - See progress notes and H&P for detailed history.? Wound consult placed for Sacral / Buttocks assessment POA.? Patient agreeable to assessment and photo documentation.? Of note patient is set for d/c back to home - she is currently in a brief - although briefs inpatient are not recommended but given the patient is set for transport to home brief left in place. Recommend should d/c be cancelled to discontinue brief use. Buttock and sacrum assessed - foam dressing in place - peeled back and reveals intact pink blanchable throughout tissue. There is evidence of previous injury with hypopigmentation noted. Currently resurfaced tissue. ? Recommendations: 1. Turn and Reposition every 2 hours and as needed for patient comfort.? Use pillows or wedges to support off loading positions. 2. Off Load all bony prominences with use of pillows and heel boots if needed.? Apply Preventative foams where needed. ? 3. Monitor for incontinence and moisture control, use barrier creams when needed for prevention and treatment. 4. Provide adequate and supplemental nutrition.? 5. Order or Continue low air loss mattress. 6. When applicable maintain blood glucose levels per Providers order. 7. Sacrum - Cleanse with routine cleanse, pat dry. Apply sacral foam dressing, peel back and assess Q shift, change every 3 days and PRN. Discontinue brief use while inpatient - briefs trap moisture and heat against patients skin putting patient at increased risk of pressure injury development. Re-consult wound care Nurse for wound deterioration or wound changes.
--- NOTE | 2023-11-20 14:34 | MHC.CM.PN ---
pt dcd today by arturo pt reports that daughter will be home when she arrives
--- NOTE | 2023-11-20 14:41 | MHC.CM.PN ---
dgter contacted and ias aware of dc time
[2023-11-20 15:15] VITALS: PULSE 65; RESP 18; TEMP 36.2; O2SAT 96
[2023-11-20 16:09] LABS: Glucose, Whole Blood 171 mg/dL (60-115)
== END 2023-11-20 17:02 | disposition home health service (06) ==
LOC: HO.ED 21:38 → HO.EDOVER 21:41 → HO.S3 11-19 11:57
PROVIDERS: Admitting Provider Student in an Organized Health Care Education/Training Program; Emergency Provider Student in an Organized Health Care Education/Training Program; PCP Internal Medicine; Visit Provider Nurse Practitioner Acute Care
DX: J96.00 Acute respiratory failure, unspecified whether with hypoxia or hypercapnia (principal); R34 Anuria and oliguria; E11.65 Type 2 diabetes mellitus with hyperglycemia; J81.1 Chronic pulmonary edema; I50.20 Unspecified systolic (congestive) heart failure; E11.22 Type 2 diabetes mellitus with diabetic chronic kidney disease; I13.2 Hypertensive heart and chronic kidney disease with heart failure and with stage 5 chronic kidney disease, or end stage renal disease; N18.6 End stage renal disease; Z99.2 Dependence on renal dialysis; R39.198 Other difficulties with micturition; E78.2 Mixed hyperlipidemia; F39 Unspecified mood [affective] disorder; E66.9 Obesity, unspecified; Z68.38 Body mass index [BMI] 38.0-38.9, adult; Z11.52 Encounter for screening for COVID-19; Z79.4 Long term (current) use of insulin; Z86.73 Personal history of transient ischemic attack (TIA), and cerebral infarction without residual deficits
CPT/HCPCS: 36415; 71045; 80048; 80053; 82947; 83880; 85025; 87502; 87635; 90999; 94640; 96372; 99221; 99285; J1644

== ENCOUNTER → 2023-11-18 21:38 | Outpatient (BNV) | payer OTHER, SELFPAY | PROVIDERS: Admitting Provider Student in an Organized Health Care Education/Training Program; Emergency Provider Student in an Organized Health Care Education/Training Program; PCP Internal Medicine; Visit Provider Student in an Organized Health Care Education/Training Program | DX: I50.9 Heart failure, unspecified (principal); N18.6 End stage renal disease; E11.65 Type 2 diabetes mellitus with hyperglycemia; R06.03 Acute respiratory distress | CPT/HCPCS: 99222; 99232; 99238 ==

== ENCOUNTER 2023-11-22 09:30 | Outpatient (AMB) | payer OTHER, SELFPAY ==
[2023-11-22 09:29] VITALS: BP 150/75; PULSE 69
--- NOTE | 2023-11-22 09:29 | A.OFFVIS_ITS ---
Intake Vital Signs 11/22/23 09:29 Height 4 ft 6 in BMI Reason not done Patient refused/unable BP 150/75 H Blood Pressure Location Rt brachial Pulse 69 Pulse Source Pulse Oximeter Intake Visit Reasons: Diarrhea Intake Note: Pt presents to the office today for diarrhea. Pt states she has diarrhea multiple times a day and has stomach pain everyday. Patients daughter states she vomitted x3 yesterday and does occasionally have nausea. Pt states she also has issues with acid reflux. Accompanied by: Daughter Allergies latex [LATEX] Allergy (Intermediate, Verified 11/22/23 09:30) ITCHY HPI Diarrhea HPI Details 68-year-old female with past medical his tory of anemia, Congestive heart failure, end-stage renal disease, diabetes, pulmonary edema, history of CVA, dysphagia, is here today for initial consultation. Patient has been admitted several times in the past couple years for abdominal pain, dysphagia. Patient was seen by Dr. Garcias had upper endoscopy done in January of 2022 that showed severe gastric reflux with possible esophagitis and gastritis. Patient was placed on PPI, however she reports to me today that she is not taking any PPIs. Patient reports no longer having trouble swallowing, however patient reports that she has been having epigastric discomfort and burning with different food. Patient reports to be constipated. Sometimes no BM for 4 days or so and then she will have loose stools. Patient is not taking any fiber supplements. Currently takes magnesium oxide every morning. Patient denies any melena, hematochezia, unintentional weight loss or ribbon like stools. Patient had normal colonoscopy August of 2013. Patient had small-bowel resection in 2018 with lysis of adhesions and cystoscopy [facility] Medical History Anemia End stage renal disease Heart failure with reduced ejection fraction Dialysis patient, noncompliant Chronic kidney disease Thrombocytopenia CKD (chronic kidney disease) stage 4, GFR 15-29 ml/min Constipation Ischemic necrosis of finger Normocytic anemia Urinary tract infection due to ESBL Klebsiella Chronic heart failure with preserved ejection fraction (HFpEF) Hypomagnesemia Acute on chronic renal failure Essential hypertension HLD (hyperlipidemia) Non-ST elevated myocardial infarction Diabetes mellitus Congestive heart failure Nonischemic cardiomyopathy Irritable bowel syndrome with diarrhea Gastroparesis GERD (gastroesophageal reflux disease) Surgical History Status post amputation of finger H/O surgical amputation of finger History of laparoscopic cholecystectomy History of intestinal surgery Hx of eye surgery History of esophagogastroduodenoscopy (EGD) Hx of colonoscopy H/O: hysterectomy Family History Father Lung cancer Mother Diabetes HTN (hypertension) Heart disease Sister Diabetes Heart disease Brother Heart disease Son Diabetes Daughter Diabetes Social History Household Members: Children Household Members Other:: SNF Housing: Apartment Do you presently have visiting nurse or other home services: No Unable to assess alcohol history related to: Unknown Alcohol intake: never Comment: report called by previous shift RN Patient Tobacco Use Status: Never used Tobacco Second Hand Smoke Exposure: No Advance Directives Date on File: 01/04/23 service: No Current occupational status: disabled Review of Systems Const Denies weight gain and Denies weight loss ENT Reports no additional complaints, Denies dysphagia and Denies odynophagia Card Reports no additional complaints Resp Reports no additional complaints GI Reports abdominal pain (Epigastric), Denies belching, Denies melena, Reports bloating, Denies change in bowel habits, Reports constipation, Denies dysphagia, Denies excessive flatus, Reports dyspepsia, Reports heartburn, Denies diarrhea, Reports loose stools, Reports nausea, Denies odynophagia and Denies vomiting Reports no additional complaints Musc Reports no additional complaints Neuro Reports no additional complaints Psych Reports no additional complaints Endo Reports no additional complaints Physical Exam Vital Signs: Last Vital Signs Pulse 69 11/22/23 09:29 BP 150/75 H 11/22/23 09:29 Const Other: Patient is in a wheelchair L BKA Orientation/consciousness: patient oriented x3 HEENT Head: Yes atraumatic Eyes General: appearance normal, both eyes and all related structures Neck Neck: Yes normal visual inspection, Yes full ROM and Yes trachea midline Thyroid: Thyroid normal Resp Effort & Inspection: normal respiratory effort, able to speak in complete sentences, no tracheal deviation and symmetric chest movement Auscultation: clear to auscultation bilaterally Cardio Rate: regular rate GI Inspection: Yes normal to inspection and No distended Palpation (GI): Soft to palpation, not firm, nontender and No hepatosplenomegaly present Auscultation: Hyperactive bowel sounds present General: Yes no CVA tenderness Back/Spine/Pelvis Back: no CVA tenderness Skin General skin exam: elasticity normal, turgor normal and dry skin Neuro General: patient oriented x3 Psych Appearance: grossly normal Mental Status: mental status grossly normal Assessment & Plan Assessment & Plan (1) Nausea & vomiting: Code(s): R11.2 - Nausea with vomiting, unspecified Qualifiers: Vomiting type: unspecified Qualified Code(s): R11.2 - Nausea with vomiting, unspecified (2) Postprandial epigastric pain: Code(s): R10.13 - Epigastric pain (3) GERD (gastroesophageal reflux disease): Code(s): K21.9 - Gastro-esophageal reflux disease without esophagitis Qualifiers: Esophagitis presence: esophagitis presence not specified Qualified Code(s): K21.9 - Gastro-esophageal reflux disease without esophagitis (4) Constipation: Code(s): K59.00 - Constipation, unspecified Qualifiers: Constipation type: slow transit constipation Qualified Code(s): K59.01 - Slow transit constipation (5) Postprandial abdominal bloating: Code(s): R14.0 - Abdominal distension (gaseous) (6) Diarrhea: Code(s): R19.7 - Diarrhea, unspecified Qualifiers: Diarrhea type: functional diarrhea Qualified Code(s): K59.1 - Functional diarrhea Plan Patient can start taking pantoprazole every morning half an hour before breakfast. Patient will avoid dietary triggers and late night snacking. Staying upright for minimum 3 hours after meals discussed with patient. Patient will start taking Benefiber if she is on able to tolerate as she is on fluid restriction we can change it to Citrucel. Patient will start taking senna tablets every evening to help her evacuate her bowels better. Low FODMAP diet discussed with patient. List of food recommended as well as list of food to avoid given to patient. I will see patient in 5 weeks, sooner on as needed basis. Patient is agreeable to this plan and verbalizes understanding of instructions. She was given the opportunity to ask questions and all questions answered. Thank you for allowing me to participate in her care Medications: New sennosides (Natural Senna Laxative) 17.2 mg (2 x 8.6 mg) PO BEDTIME 60 tabs 3RF constipation K59.00 - Constipation, unspecified wheat dextrin (Benefiber Clear Sugar Free(dextrin)) mix into at least 4 oz water or juice before administering 1 packet PO DAILY 28 ea 5RF K59.01 - Slow transit constipation pantoprazole take one tablet half an hour before breakfast 40 mg PO DAILY 30 tabs 2RF K21.9 - Gastro-esophageal reflux disease without esophagitis Coding Level of Care Code New Pt Level 4 (89351) Diagnoses Nausea and vomiting, unspecified vomiting type R11.2 Vomiting type: unspecified Postprandial epigastric pain R10.13 Gastroesophageal reflux disease, unspecified whether esophagitis present K21.9 Esophagitis presence: esophagitis presence not specified Slow transit constipation K59.01 Constipation type: slow transit constipation Postprandial abdominal bloating R14.0 Functional diarrhea K59.1 Diarrhea type: functional diarrhea Time Spent (min) 45 Comment 30 minutes spent with patient and additional 15 minutes spent reviewing her records
== END 2023-11-22 10:02 | disposition home or self-care (01) ==
PROVIDERS: PCP Internal Medicine; Visit Provider Nurse Practitioner Family
DX: R11.2 Nausea with vomiting, unspecified (principal); R10.13 Epigastric pain; K21.9 Gastro-esophageal reflux disease without esophagitis; K59.01 Slow transit constipation; R14.0 Abdominal distension (gaseous); K59.1 Functional diarrhea
CPT/HCPCS: 99204

== ENCOUNTER → 2023-11-22 09:30 | Outpatient (BNVA) | payer OTHER, SELFPAY | PROVIDERS: PCP Internal Medicine; Visit Provider Nurse Practitioner Family | DX: K21.9 Gastro-esophageal reflux disease without esophagitis (principal); K59.01 Slow transit constipation; K59.1 Functional diarrhea; R11.2 Nausea with vomiting, unspecified; R10.13 Epigastric pain; R14.0 Abdominal distension (gaseous) | CPT/HCPCS: 99202 ==

== ENCOUNTER 2023-12-02 17:00 | Inpatient (IN) | payer OTHER, SELFPAY ==
--- NOTE | ~2023-12-02 | XR_ITS ---
EXAMINATION: XR CHEST CLINICAL INFORMATION: Fluid overload. COMPARISON: 11/18/23 TECHNIQUE: Frontal portable view of the chest was obtained. FINDINGS: Devices overlie the patient. There is a large caliber dual lumen right-sided vascular catheter with tip projecting in the right atrium. No change in cardiac size. The central vessels are prominent and indistinct. There is some pleural-parenchymal density in the right lower chest with meniscus formation and some fissural fluid. No focal pneumonia in the left lung or right upper lung. No pneumothorax demonstrated Limited bone detail XR/XR chest 1V IMPRESSION: Vascular prominence with right pleural-parenchymal disease. Probably no significant interval change.
[2023-12-02 17:15] VITALS: BP 147/59; BP 158/93; PULSE 62; PULSE 64; RESP 22; TEMP 37.2; O2SAT 95; O2SAT 96; BMI 32.7
[2023-12-02 18:24] VITALS: BMI 32.8
--- NOTE | 2023-12-02 18:57 | ECG_ITS ---
Test Reason : SOB Blood Pressure : / mmHG Vent. Rate : 063 BPM Atrial Rate : 063 BPM P-R Int : 170 ms QRS Dur : 134 ms QT Int : 494 ms P-R-T Axes : 062 024 -84 degrees QTc Int : 505 ms Normal sinus rhythm Non-specific intra-ventricular conduction block Minimal voltage criteria for LVH, may be normal variant ( Heriberto product ) Cannot rule out Anterior infarct (cited on or before 21-SEP-2023) T wave abnormality, consider inferolateral ischemia Abnormal ECG When compared with ECG of 25-OCT-2023 06:29, T wave inversion more evident in Inferior leads Referred By: Home Bello Electronically Signed By:MYESHA FREY
--- NOTE | 2023-12-02 19:07 | ED_ITS ---
HPI - General Adult General Chief complaint: General Medical Stated complaint: SOB,HX COPD Time Seen by Provider: 12/02/23 18:41 Source: patient Mode of arrival: ambulatory Limitations: no limitations History of Present Illness HPI narrative: 68-year-old female history of COPD, CVA, diabetes, and end-stage renal disease with dialysis on Monday and Monday presents to ED for shortness of breath since this morning. Patient missed her dialysis on Monday. Patient denies any swelling of legs. Patient denies any URI symptoms. Patient denies any chest pain. Patient only complains shortness of breath Related Data Home Medications Medication Instructions Recorded Confirmed aspirin 81 mg tablet,delayed 81 mg PO BEDTIME 06/20/21 11/19/23 release atorvastatin 80 mg tablet 80 mg PO BEDTIME 06/20/21 11/19/23 clopidogrel 75 mg tablet 75 mg PO DAILY 06/20/21 11/19/23 insulin glargine 100 unit/mL (3 20 unit subcut BEDTIME 03/25/22 11/19/23 mL) subcutaneous pen (Lantus Solostar U-100 Insulin) magnesium oxide 400 mg (241.3 mg 400 mg PO DAILY 04/20/23 11/19/23 magnesium) tablet blood sugar diagnostic (OneTouch #10 ea 05/25/23 Ultra Test strips) insulin aspart U-100 100 unit/mL 1 sliding scale dose subcut 05/25/23 11/19/23 (3 mL) subcutaneous pen (Novolog NEEDED PRN bs >200 FlexPen U-100 Insulin aspart) lancets 33 gauge (OneTouch Delica #100 ea 05/25/23 Plus Lancet) pen needle, diabetic 32 gauge x #1,200 ea 05/25/23/32 (Pentips) albuterol sulfate 90 mcg/actuation 2 inh inhalation Q4H PRN shortness 09/21/23 11/19/23 aerosol inhaler of breath or wheezing melatonin 5 mg tablet 5 - 10 mg PO BEDTIME PRN Sleep 09/21/23 11/19/23 sevelamer carbonate 800 mg tablet 800 mg PO TIDWM 10/08/23 11/19/23 amlodipine 5 mg tablet 5 mg PO DAILY 11/19/23 11/19/23 Previous Rx's Medication Instructions Recorded carvedilol 12.5 mg tablet 12.5 mg PO BIDWM #60 tabs 10/11/23 valsartan 80 mg tablet 80 mg PO BID #60 tabs 10/11/23 pantoprazole 40 mg tablet,delayed 40 mg PO DAILY #30 tabs 11/22/23 release sennosides 8.6 mg tablet (Natural 17.2 mg (2 x 8.6 mg) PO BEDTIME 11/22/23 Senna Laxative) constipation #60 tabs wheat dextrin 3 gram/3.5 gram oral 1 packet PO DAILY #28 ea 11/22/23 powder packet (Benefiber Clear Sugar Free(dextrin)) Allergies Allergy/AdvReac Type Severity Reaction Status Date / Time latex [LATEX] Allergy Intermediate ITCHY Verified 11/22/23 09:30 [facility] Past Medical History Medical History (Updated 12/03/23 @ 00:55 by JOSE Hunter) Congestive heart failure Hyperglycemia due to diabetes mellitus Anemia End stage renal disease Heart failure with reduced ejection fraction Dialysis patient, noncompliant Chronic kidney disease Thrombocytopenia CKD (chronic kidney disease) stage 4, GFR 15-29 ml/min Constipation Ischemic necrosis of finger Normocytic anemia Urinary tract infection due to ESBL Klebsiella Chronic heart failure with preserved ejection fraction (HFpEF) Hypomagnesemia Acute on chronic renal failure Essential hypertension HLD (hyperlipidemia) Non-ST elevated myocardial infarction Diabetes mellitus Nonischemic cardiomyopathy Irritable bowel syndrome with diarrhea Gastroparesis GERD (gastroesophageal reflux disease) Surgical History Status post amputation of finger H/O surgical amputation of finger History of laparoscopic cholecystectomy History of intestinal surgery Hx of eye surgery History of esophagogastroduodenoscopy (EGD) Hx of colonoscopy H/O: hysterectomy Family History Family History Father Lung cancer Mother Diabetes HTN (hypertension) Heart disease Sister Diabetes Heart disease Brother Heart disease Son Diabetes Daughter Diabetes Social History Social History Household Members: Children Household Members Other:: SNF Housing: Apartment Do you presently have visiting nurse or other home services: No Unable to assess alcohol history related to: Unknown Alcohol intake: never Comment: report called by previous shift RN Patient Tobacco Use Status: Never used Tobacco Smoked in Last 30 Days: No Second Hand Smoke Exposure: No Use of substances other than those prescribed or required for medical reasons: No Advance Directives: Yes Advance Directives on File: Yes Advance Directives Date on File: 01/04/23 service: No Current occupational status: disabled Physical Exam ED Vital Signs: Vital Signs - 24 hr 12/02/23 17:15 12/02/23 19:23 12/02/23 19:31 Temperature 98.9 F 97.6 F Pulse Rate 64 63 63 Respiratory Rate 22 H 17 20 Blood Pressure 147/59 H 120/81 Pulse Oximetry 95 99 Oxygen Delivery Method Room Air Room Air 12/02/23 19:31 Temperature Pulse Rate 64 Respiratory Rate 20 Blood Pressure 133/60 Pulse Oximetry 96 Oxygen Delivery Method Room Air BMI result Body Mass Index 32.8 Const General: cooperative, healthy appearing, comfortable, no acute distress, well developed, alert and awake Orientation/consciousness: oriented to person, oriented to place, oriented to time and patient oriented x3 HENMT Head: Yes normal to inspection, Yes No palpable skull fracture present, Yes normocephalic, Yes atraumatic and No abrasion Eyes General: appearance normal, both eyes and all related structures Neck Neck: Yes normal visual inspection, Yes full ROM, Yes no lymphadenopathy, Yes no meningeal signs, Yes trachea midline, Yes supple, No anterior neck swelling and No tender Chest Chest palpation & inspection: normal inspection of the chest and normal palpation of entire chest wall Resp Effort & Inspection: normal respiratory effort and able to speak in complete sentences Auscultation: clear to auscultation bilaterally Cardio Jugular venous distension: no JVD Heart sounds: S1 normal heart sound present and S2 normal heart sound present GI Inspection: Yes normal to inspection Palpation (GI): Soft to palpation, not firm, nontender, no guarding and not rigid General: Yes no CVA tenderness Back/Spine/Pelvis Back: no CVA tenderness and No back tenderness Skin General skin exam: no rashes or lesions noted and elasticity normal Neuro General: oriented to person, oriented to place, oriented to time, patient oriented x3, tone normal, moves all extremities, Normal light touch and pain sensation, no meningeal signs, no focal motor deficits, CN's II-XI intact bilaterally and normal sensation to monofilament Extrem Other: Left bilateral BKA. Bilateral lower extremity negative for swelling pitting edema or calf tenderness Psych Appearance: grossly normal, well kempt and not disheveled Medications Administered Generic Name Dose Route Start Last Admin Trade Name Wang PRN Reason Stop Dose Admin Heparin Sodium (Porcine) 5,000 unit 12/02/23 21:15 12/02/23 22:31 Heparin Sodium,Porcine 5,000 Unit/Ml Vial SUBCUT 5,000 unit Q12H MATTY Administration Discontinued Medications Generic Name Dose Route Start Last Admin Trade Name Wang PRN Reason Stop Dose Admin Albuterol Sulfate 10 mg 12/02/23 20:04 12/02/23 21:19 Albuterol Sulfate (0.083%) 2.5 Mg/3 Ml Vial.Neb INHALE 12/02/23 20:05 10 mg ONCE ONE Administration Dextrose 25 gm 12/02/23 20:04 12/02/23 20:16 Dextrose 50 % 25 Gm/50 Ml Syringe IVPUSH 12/02/23 20:05 25 gm ONCE ONE Administration Furosemide 40 mg 12/02/23 18:56 12/02/23 19:25 Furosemide 40 Mg/4 Ml Vial IVPUSH 12/02/23 18:57 40 mg STAT STA Administration Protocol Furosemide 40 mg 12/02/23 21:05 12/02/23 21:21 Furosemide 40 Mg/4 Ml Vial IVPUSH 12/02/23 21:06 40 mg STAT STA Administration Protocol Furosemide 80 mg 12/02/23 21:40 12/02/23 22:30 Furosemide 100 Mg/10 Ml Vial IVPUSH 12/02/23 21:41 80 mg ONCE ONE Administration Protocol Calcium Gluconate 2 gm in 100 mls @ 50 mls/hr 12/02/23 20:04 12/02/23 22:21 Calcium Gluconate IV 12/02/23 22:03 Infused ONCE ONE Infusion Insulin Glargine 14 unit 12/02/23 21:24 12/02/23 22:31 Insulin Glargine,Hum.Rec.Anlog 100 Unit/Ml 10 Ml Vial SUBCUT 12/02/23 21:25 14 unit ONCE ONE Administration Insulin Human Regular 10 unit 12/02/23 20:04 12/02/23 20:15 Insulin Regular, Human 100 Unit/Ml 3 Ml Vial IVPUSH 12/02/23 20:05 10 unit ONCE ONE Administration Sodium Zirconium Cyclosilicate 10 gm 12/02/23 20:04 12/02/23 20:19 Sodium Zirconium Cyclosilicate 10 Gm Powd.Pack PO 12/02/23 20:05 10 gm ONCE ONE Administration Sodium Zirconium Cyclosilicate 10 gm 12/02/23 21:40 12/02/23 22:31 Sodium Zirconium Cyclosilicate 10 Gm Powd.Pack PO 12/02/23 21:41 10 gm ONCE ONE Administration Medical Decision Making Medical Decision Making MDM Narrative: 5-year-old female history of end-stage renal disease, diabetes, stroke, and COPD presents to ED for shortness of breath. Patient missed her dialysis. Probably in fluid overload. O2 sats stable. Patient does have urine. Lasix ordered. If no improvement most likely placed on CPAP, fentanyl, and nitroprusside. Blood pressure stable. 10:02pm: Spoke with Dr. Kaur Java Groovy Developer who recommend another dose of Lokelma 10 mg and Lasix 40 mg IV. He states patient should be admitted to tele and will have dialysis in the morning. Admitted to Dr. Stafford. Patient is not in fluid overload. Patient comfortably in bed on cellphone. No need for CPAP, fentanyl, or nitroprusside Differential Diagnosis Differential Diagnoses: The differential diagnosis associated with the presentation includes (FLuid overload. Hyperkaaelmia, OR, COPD) Admission/Observation Consideration of admission/observation: Escalation of care including admission/observation considered Consult Healthcare Provider Management of the patient was discussed with: Hospitalist (Dr. Stafford) and Transportation Attendant (Dr. Kaur Nephrologsit) Lab Data 12/02/23 19:37 12/02/23 21:46 Labs: Lab Results 12/02/23 12/02/23 12/02/23 Range/Units 19:37 20:30 20:46 WBC 8.9 (4.8-10.8) X10*3/uL RBC 4.25 (4.20-5.50) X10*6/uL Hgb 11.6 L (12.0-16.0) g/dl Hct 37.5 (37.0-47.0) % MCV 88.2 (80.0-98.0) fL MCH 27.3 (27.0-33.0) pg MCHC 30.9 L (31.0-35.0) g/dl RDW 13.6 (11.0-16.0) % Plt Count 160 D (160-400) X10*3/uL MPV 10.5 (9.4-12.3) fL Immature Gran % (Auto) 0.4 (0.0-0.4) % Neut % (Auto) 78.5 H (45-73) % Lymph % (Auto) 13.0 L (20-40) % [place] % (Auto) 6.3 (2-11) % Eos % (Auto) 1.5 (0-4) % Baso % (Auto) 0.3 (0-2) % Lymph # (Auto) 1.2 (1.2-4.9) X10*3/uL [place] # (Auto) 0.6 (0.1-1.2) X10*3/uL Eos # (Auto) 0.1 (0.0-0.4) X10*3/uL Baso # (Auto) 0.0 (0.0-0.2) X10*3/uL Abs Immat Gran (auto) 0.04 H (0.00-0.03) X10*3/uL Absolute Neuts (auto) 7.0 (2.0-8.3) x10*3/uL Absolute Nucleated RBC 0.000 (0.0-0.012) X10*3/uL Nucleated RBC % (auto) 0.0 (0.0-0.2) /100WBC PT 14.9 H (11.1-13.3) SEC INR 1.2 H (0.9-1.1) APTT 29.6 (26.0-36.8) SEC VBG pH 7.37 (7.32-7.43) VBG pCO2 48 mmHg VBG pO2 48 mmHg VBG HCO3 28 H (22-26) mmol/L VBG O2 Saturation 72.0 % VBG Base Excess 2.9 mmol/L Sodium 140 (135-145) mmol/L Potassium 7.1 H* D (3.3-5.1) mmol/L Chloride 102 (96-108) mmol/L Carbon Dioxide 27 (22-29) mmol/L Anion Gap 18 (12-20) BUN 53 H (9-16) mg/dL Creatinine 5.32 H* (0.5-1.4) mg/dL Estim Creat Clear Calc 8.2 Estimated GFR 8 POC Glucose 312 H (60-115) mg/dL Random Glucose 351 H* (60-115) mg/dL Lactic Acid 1.8 (0.5-2.0) mmol/L Calcium 8.1 L (8.4-10.2) mg/dL Total Bilirubin 0.2 (0.0-1.0) mg/dL AST 12 (5-31) U/L ALT 7 (0-31) U/L Alkaline Phosphatase 205 H (39-117) U/L Troponin I High Sens 23.9 H (<3.5-17.0) ng/L B-Natriuretic Peptide 3417 H (<100) pg/mL Total Protein 7.3 (6.5-8.0) g/dL Albumin 3.3 L (3.5-5.0) g/dL Critical Care Time Critical Care Time Critical Care Time: Yes Total Critical Care Time: 60 Attestation: Hyperkalemia. Missed dialysis. Patient given,, albuterol, calcium gluconate, and insulin. Spoke with carbon printer Dr. Kaur who recommends another dose of Lokelma with Lasix 80. Recommend admission and dialysis in the morning Discharge Plan Discharge Clinical Impression: Acute hyperkalemia, End stage renal disease on dialysis Patient Disposition: Admitted As Inpatient
[2023-12-02 19:23] VITALS: BP 120/81; PULSE 63; RESP 17; TEMP 36.4; O2SAT 99
[2023-12-02] MEDS: Furosemide 40 MG/4 ML VIAL IVPUSH ×2 (19:25→21:21)
--- NOTE | 2023-12-02 19:26 | PC.NURSE ---
this rn assumed care of pt. pt noted to have increased work of breathing, lung sounds clear bilaterally. provider at bedside to assess pt. pt medicated per nov. vss. pt 98-100% on room air. normal sinus on tele 60-63.
[2023-12-02 19:31] VITALS: BP 133/60; PULSE 63; PULSE 64; RESP 20; O2SAT 96
--- NOTE | 2023-12-02 19:42 | PC.NURSE ---
labs obtained and sent to lab at this time. pt noted to have amputation below the knee of the left leg, multiple fingers on the left and right hand.
[2023-12-02 19:44] LABS: MANUAL DIFF FLAG NO
[2023-12-02 19:45] LABS: Basophils Percent Auto 0.3 % (0-2); Eosinophils Absolute Auto 0.1 X10*3/uL (0.0-0.4); Eosinophils Percent Auto 1.5 % (0-4); Hematocrit 37.5 % (37.0-47.0); Hemoglobin 11.6 g/dl (12.0-16.0); Imm Gran Abs Auto 0.04 X10*3/uL (0.00-0.03); Imm Gran Pct Auto 0.4 % (0.0-0.4); Lymphocytes Absolute Auto 1.2 X10*3/uL (1.2-4.9); Mean Corpuscular HGB Conc 30.9 g/dl (31.0-35.0); Mean Corpuscular Hemoglobin 27.3 pg (27.0-33.0); Mean Corpuscular Volume 88.2 fL (80.0-98.0); Mean Platelet Volume 10.5 fL (9.4-12.3); Monocytes Absolute Auto 0.6 X10*3/uL (0.1-1.2); Monocytes Percent Auto 6.3 % (2-11); Neutrophils Percent Auto 78.5 % (45-73); Platelet Count 160 X10*3/uL (160-400); Red Blood Count 4.25 X10*6/uL (4.20-5.50); Red Cell Distribution Width 13.6 % (11.0-16.0); White Blood Count 8.9 X10*3/uL (4.8-10.8)
[2023-12-02 19:51] LABS: INTERNATIONAL NORM RATIO 1.2 (0.9-1.1); Prothrombin Time 14.9 SEC (11.1-13.3)
[2023-12-02 19:54] LABS: Lactic Acid 1.8 mmol/L (0.5-2.0); Partial Thromboplastin Time 29.6 SEC (26.0-36.8)
[2023-12-02 20:03] LABS: Alanine Aminotransferase 7 U/L (0-31); Albumin Level 3.3 g/dL (3.5-5.0); Alkaline Phosphatase 205 U/L (39-117); Anion Gap 18 (12-20); Aspartate Amino Transferase 12 U/L (5-31); Bilirubin Total 0.2 mg/dL (0.0-1.0); Blood Urea Nitrogen 53 mg/dL (9-16); Calcium 8.1 mg/dL (8.4-10.2); Carbon Dioxide 27 mmol/L (22-29); Chloride 102 mmol/L (96-108); Creatinine Clr Calc Pharmacy 8.2; Estimated Glomerular Filt Rate 8; Glucose Random 351 mg/dL (60-115); Potassium 7.1 mmol/L (3.3-5.1); Sodium 140 mmol/L (135-145); Total Protein 7.3 g/dL (6.5-8.0)
[2023-12-02 20:04] LABS: B Type Natriuretic Peptide 3417 pg/mL (<100)
[2023-12-02 20:05] LABS: Troponin-I High Sensitivity 23.9 ng/L (<3.5-17.0)
[2023-12-02] MEDS: Insulin Regular, Human 100 UNIT/ML 3 ML VIAL 10 UNIT IVPUSH (20:15)
[2023-12-02] MEDS: Dextrose 50 % 25 GM/50 ML SYRINGE IVPUSH (20:16)
[2023-12-02] MEDS: Sodium Zirconium Cyclosilicate 10 GM POWD.PACK PO ×2 (20:19→22:31)
[2023-12-02] MEDS: Calcium Gluconate/NaCl,Iso-Osm 2 GM/100 ML PLAST..BAG IV (20:21)
--- NOTE | 2023-12-02 20:30 | PC.NURSE ---
pt medicated per nov. pt tolerated fluids by mouth.
[2023-12-02 20:37] LABS: VBG Base Excess 2.9 mmol/L; VBG HCO3 28 mmol/L (22-26); VBG pCO2 48 mmHg; VBG pH 7.37 (7.32-7.43); VBG pO2 48 mmHg
[2023-12-02 20:39] LABS: Venous Blood Gas Refer to POC result
[2023-12-02 20:50] LABS: Glucose, Whole Blood 312 mg/dL (60-115)
--- NOTE | 2023-12-02 21:16 | PM.IMHP ---
History of Present Illness Date of Service: 12/02/23 Chief Complaint: Dyspnea This is a 68-year-old female with pertinent history of ESRD on hemodialysis (Monday, Monday), congestive heart failure with reduced ejection fraction, insulin-dependent type 2 diabetes mellitus, mixed hyperlipidemia, essential hypertension, history of CVA, mood disorder who presents to the emergency department for evaluation of dyspnea. Patient states she started having dyspnea a couple of days prior to presentation. It has been progressive and worsened over the last 2 days. No cough, fever or chills. Patient does state that she only goes for dialysis twice a week. Her last dialysis session was 11/27 and she missed her dialysis session yesterday, 11/30 [address] Does report orthopnea. Does have a history of noncompliance with hemodialysis sessions in the past. No chest discomfort, palpitations, abdominal pain, changes in bowel habits. Patient states she does make some urine. In the emergency department, imaging with vascular prominence and BNP found to be elevated Review of Systems Constitutional: Constitutional: Reports no additional constitutional complaints Cardiovascular: Cardiovascular: Reports dyspnea and Reports orthopnea Respiratory: Respiratory: Reports dyspnea Gastrointestinal: Gastrointestinal: Reports no additional gastrointestinal complaints Genitourinary: Genitourinary: Reports no additional female genitourinary complaints [facility] Medical History (Updated 12/02/23 @ 21:26 by Leopoldo Stafford MD) Congestive heart failure Hyperglycemia due to diabetes mellitus Anemia End stage renal disease Heart failure with reduced ejection fraction Dialysis patient, noncompliant Chronic kidney disease Thrombocytopenia CKD (chronic kidney disease) stage 4, GFR 15-29 ml/min Constipation Ischemic necrosis of finger Normocytic anemia Urinary tract infection due to ESBL Klebsiella Chronic heart failure with preserved ejection fraction (HFpEF) Hypomagnesemia Acute on chronic renal failure Essential hypertension HLD (hyperlipidemia) Non-ST elevated myocardial infarction Diabetes mellitus Nonischemic cardiomyopathy Irritable bowel syndrome with diarrhea Gastroparesis GERD (gastroesophageal reflux disease) Family History Father Lung cancer Mother Diabetes HTN (hypertension) Heart disease Sister Diabetes Heart disease Brother Heart disease Son Diabetes Daughter Diabetes Surgical History Status post amputation of finger H/O surgical amputation of finger History of laparoscopic cholecystectomy History of intestinal surgery Hx of eye surgery History of esophagogastroduodenoscopy (EGD) Hx of colonoscopy H/O: hysterectomy Social History Household Members: Children Household Members Other:: SNF Housing: Apartment Do you presently have visiting nurse or other home services: No Unable to assess alcohol history related to: Unknown Alcohol intake: never Comment: report called by previous shift RN Patient Tobacco Use Status: Never used Tobacco Smoked in Last 30 Days: No Second Hand Smoke Exposure: No Use of substances other than those prescribed or required for medical reasons: No Advance Directives: Yes Advance Directives on File: Yes Advance Directives Date on File: 01/04/23 service: No Current occupational status: disabled Meds Allergies Allergy/AdvReac Type Severity Reaction Status Date / Time latex [LATEX] Allergy Intermediate ITCHY Verified 11/22/23 09:30 Active Medications: Current Medications Calcium Gluconate (Calcium Gluconate) 2 gm in 100 mls @ 50 mls/hr IV ONCE ONE Stop: 12/02/23 22:03 Last Admin: 12/02/23 20:21 Dose: 50 mls/hr Home Medications Medication Instructions Recorded Confirmed Last Taken Type aspirin 81 mg tablet,delayed 81 mg PO BEDTIME 06/20/21 11/19/23 09/20/23 History release atorvastatin 80 mg tablet 80 mg PO BEDTIME 06/20/21 11/19/23 09/20/23 History clopidogrel 75 mg tablet 75 mg PO DAILY 06/20/21 11/19/23 09/20/23 History insulin glargine 100 unit/mL (3 20 unit subcut BEDTIME 03/25/22 11/19/23 09/20/23 History mL) subcutaneous pen (Lantus Solostar U-100 Insulin) magnesium oxide 400 mg (241.3 mg 400 mg PO DAILY 04/20/23 11/19/23 09/20/23 History magnesium) tablet blood sugar diagnostic (TechTol ImagingTouch #10 ea 05/25/23 Unknown History Ultra Test strips) insulin aspart U-100 100 unit/mL 1 sliding scale dose subcut 05/25/23 11/19/23 09/20/23 History (3 mL) subcutaneous pen (Novolog NEEDED PRN bs >200 FlexPen U-100 Insulin aspart) lancets 33 gauge (OneTouch Delica #100 ea 05/25/23 Unknown History Plus Lancet) pen needle, diabetic 32 gauge x #1,200 ea 05/25/23 Unknown History (Pentips) albuterol sulfate 90 mcg/actuation 2 inh inhalation Q4H PRN shortness 09/21/23 11/19/23 Unknown History aerosol inhaler of breath or wheezing melatonin 5 mg tablet 5 - 10 mg PO BEDTIME PRN Sleep 09/21/23 11/19/23 09/20/23 History sevelamer carbonate 800 mg tablet 800 mg PO TIDWM 10/08/23 11/19/23 Unknown History amlodipine 5 mg tablet 5 mg PO DAILY 11/19/23 11/19/23 Unknown History Physical Exam Vital Signs and Narrative: Vital Signs: Last Vital Signs Temp 97.6 F 12/02/23 19:23 Pulse 64 12/02/23 19:31 Resp 20 12/02/23 19:31 BP 133/60 12/02/23 19:31 Pulse Ox 96 12/02/23 19:31 O2 Del Method Room Air 12/02/23 19:31 BMI result Body Mass Index 32.8 Elderly female lying in bed in mild distress Neck supple, JVD + Regular rate and rhythm, S1-S2 heard Bilateral crackles appreciated Abdomen soft nontender, no guarding, no rigidity, no CVA tenderness Patient is awake, alert and oriented to self, place, time and person ; no focal motor deficit Psych: Normal mood Right lower extremity pedal edema, left AKA Results Labs 12/02/23 19:37 12/02/23 19:37 Labs: Laboratory Results - last 24 hr 12/02/23 12/02/23 12/02/23 19:37 20:30 20:46 MCV 88.2 MCH 27.3 MCHC 30.9 L RDW 13.6 Plt Count 160 D MPV 10.5 Immature Gran % (Auto) 0.4 Neut % (Auto) 78.5 H Lymph % (Auto) 13.0 L [place] % (Auto) 6.3 Eos % (Auto) 1.5 Baso % (Auto) 0.3 Lymph # (Auto) 1.2 [place] # (Auto) 0.6 Eos # (Auto) 0.1 Baso # (Auto) 0.0 Abs Immat Gran (auto) 0.04 H Absolute Neuts (auto) 7.0 Absolute Nucleated RBC 0.000 Nucleated RBC % (auto) 0.0 PT 14.9 H INR 1.2 H APTT 29.6 VBG pH 7.37 VBG pCO2 48 VBG pO2 48 VBG HCO3 28 H VBG O2 Saturation 72.0 VBG Base Excess 2.9 Anion Gap 18 Estim Creat Clear Calc 8.2 Estimated GFR 8 POC Glucose 312 H Random Glucose 351 H* Lactic Acid 1.8 Calcium 8.1 L Total Bilirubin 0.2 AST 12 ALT 7 Alkaline Phosphatase 205 H Troponin I High Sens 23.9 H B-Natriuretic Peptide 3417 H Total Protein 7.3 Albumin 3.3 L Imaging Radiologist's Impressions: Impressions Chest X-Ray 12/02/23 19:19 IMPRESSION: Vascular prominence with right pleural-parenchymal disease. Probably no significant interval change. Assessment and Plan (1) Congestive heart failure: Status: Acute Plan This is a 68-year-old female with pertinent history of ESRD on hemodialysis (Monday, Monday), congestive heart failure with reduced ejection fraction, insulin-dependent type 2 diabetes mellitus, mixed hyperlipidemia, essential hypertension, history of CVA, mood disorder who presents to the emergency department for evaluation of dyspnea. #. Acute respiratory distress due to acute on chronic congestive heart failure with reduced ejection fraction in a patient with missed hemodialysis session: Will admit patient with cardiac monitoring. Consulted Nephrology, appreciate assistance. Low-salt diet. Strict I's and O's. Initiating IV Lasix. Patient is on beta-kain and ARB #. ESRD on hemodialysis: Plan as above #. Hyperkalemia due to missed hemodialysis: Temporizing measures given in the ER. Administered Lokelma and IV furosemide. Closely monitor #.? Insulin-dependent type 2 diabetes mellitus with hyperglycemia: Initiating basal bolus insulin regimen #.? Essential hypertension: Continue home antihypertensives #.? History of CVA: on plavix, aspirin and high-intensity statin #. Mood disorder. Continue mood stabilizers #. Obesity: Counseled regarding diet and weight loss Med rec pending DVT prophylaxis: Heparin Full code Low-salt diet Admit as inpatient and will require two night minimum hospital stay for optimization of volume status, closely monitoring serum electrolytes (as above), which is not possible in a lesser acute setting. Specialist consult pending Quality Stroke Does the patient have a stroke diagnosis?: No VTE Prior VTE?: No VTE Risk Level:: Medical - moderate - high VTE Device Contraindication: Treatment Not Indicated VTE Drug Contraindication: N/A - Med Ordered
[2023-12-02] MEDS: Albuterol Sulfate (0.083%) 2.5 MG/3 ML VIAL.NEB 10 MG INHALE (21:19)
[2023-12-02 21:20] VITALS: BP 161/47; PULSE 70; RESP 19; TEMP 36.6; O2SAT 94
--- NOTE | 2023-12-02 21:20 | PC.NURSE ---
respiratory at bedside for treatment.
--- NOTE | 2023-12-02 21:31 | PC.NURSE ---
noreen placed at this time to monitor i/o's
[2023-12-02 22:06] LABS: Anion Gap 18 (12-20); Blood Urea Nitrogen 52 mg/dL (9-16); Calcium 8.2 mg/dL (8.4-10.2); Carbon Dioxide 25 mmol/L (22-29); Chloride 105 mmol/L (96-108); Creatinine Clr Calc Pharmacy 8.3; Estimated Glomerular Filt Rate 8; Glucose Random 181 mg/dL (60-115); Potassium 5.7 mmol/L (3.3-5.1); Sodium 142 mmol/L (135-145)
[2023-12-02 22:24] LABS: Glucose, Whole Blood 160 mg/dL (60-115)
[2023-12-02] MEDS: Furosemide 100 MG/10 ML VIAL 80 MG IVPUSH (22:30)
[2023-12-02 22:31] VITALS: BP 157/88; PULSE 70; RESP 19; O2SAT 98
[2023-12-02] MEDS: Heparin Sodium,Porcine 5,000 UNIT/ML VIAL 5000 UNIT SUBCUT (22:31)
[2023-12-02] MEDS: Insulin Glargine,Hum.rec.anlog 100 UNIT/ML 10 ML VIAL 14 UNIT SUBCUT (22:31)
[2023-12-03] MEDS: 0.9 % Sodium Chloride Flush 3 ML SYRINGE IVFLUSH ×3 (01:08→23:54)
[2023-12-03 05:18] LABS: MANUAL DIFF FLAG NO
[2023-12-03 05:20] LABS: Basophils Percent Auto 0.3 % (0-2); Eosinophils Absolute Auto 0.2 X10*3/uL (0.0-0.4); Eosinophils Percent Auto 2.2 % (0-4); Hematocrit 34.4 % (37.0-47.0); Hemoglobin 10.8 g/dl (12.0-16.0); Imm Gran Abs Auto 0.05 X10*3/uL (0.00-0.03); Imm Gran Pct Auto 0.6 % (0.0-0.4); Lymphocytes Absolute Auto 1.6 X10*3/uL (1.2-4.9); Lymphocytes Percent Auto 17.4 % (20-40); Mean Corpuscular HGB Conc 31.4 g/dl (31.0-35.0); Mean Corpuscular Hemoglobin 27.3 pg (27.0-33.0); Mean Corpuscular Volume 87.1 fL (80.0-98.0); Mean Platelet Volume 11.2 fL (9.4-12.3); Monocytes Absolute Auto 0.7 X10*3/uL (0.1-1.2); Monocytes Percent Auto 8.1 % (2-11); Neutrophils Absolute Auto 6.4 x10*3/uL (2.0-8.3); Neutrophils Percent Auto 71.4 % (45-73); Platelet Count 158 X10*3/uL (160-400); Red Blood Count 3.95 X10*6/uL (4.20-5.50); Red Cell Distribution Width 13.6 % (11.0-16.0); White Blood Count 8.9 X10*3/uL (4.8-10.8)
[2023-12-03 05:39] LABS: Anion Gap 19 (12-20); Blood Urea Nitrogen 52 mg/dL (9-16); Calcium 8.4 mg/dL (8.4-10.2); Carbon Dioxide 25 mmol/L (22-29); Chloride 104 mmol/L (96-108); Creatinine Clr Calc Pharmacy 8.2; Estimated Glomerular Filt Rate 8; Glucose Random 104 mg/dL (60-115); Potassium 5.6 mmol/L (3.3-5.1); Sodium 142 mmol/L (135-145)
--- NOTE | 2023-12-03 06:09 | PC.NURSE ---
pt transported to dialysis at this time.
--- NOTE | 2023-12-03 07:06 | PC.NURSE ---
this RN resumed care of pt at this time. pt at dialysis during this time. will resume care of pt when she returns.
--- NOTE | 2023-12-03 07:39 | P.PNIM_ITS ---
Subjective Subjective Date of Service: 12/03/23 Review of Systems Follow up CHF feeling better after dialysis Physical Exam 2 Vital Signs: Vital Signs: Last Vital Signs Temp 97.8 F 12/02/23 21:20 Pulse 70 12/02/23 22:31 Resp 19 12/02/23 22:31 BP 157/88 H 12/02/23 22:31 Pulse Ox 98 12/02/23 22:31 O2 Del Method Room Air 12/02/23 22:31 BMI result Body Mass Index 32.8 Appearing in no acute distress lung sounds are clear to auscultation heart regular rate rhythm, clear S1, S2 positive bowel sounds, abdomen is soft, nontender neuro patient is alert x3, no focal deficits Objective Data Active Medications Acetaminophen (Acetaminophen 325 Mg Tablet) 650 mg PO Q6H PRN PRN Reason: Pain, Mild (Pain Scale 1-3) Dextrose (Dextrose 50 % 25 Gm/50 Ml Syringe) 25 gm IVPUSH Q15M PRN; Protocol PRN Reason: per Hypoglycemia Standing Ord. Glucose (Glucose Gel 15 Gm Gel..Gram.) 15 gm PO Q15M PRN; Protocol PRN Reason: per Hypoglycemia Standing Ord. Heparin Sodium (Porcine) (Heparin Sodium,Porcine 5,000 Unit/Ml Vial) 5,000 unit SUBCUT Q12H [facility] Last Admin: 12/02/23 22:31 Dose: 5,000 unit Documented By: RICARDO Insulin Human Lispro (Insulin Lispro 100 Unit/Ml 3 Ml Vial) 0 unit SUBCUT QIDACHS [facility]; Protocol Melatonin (Melatonin 3 Mg Tablet) 6 mg PO BEDTIME PRN PRN Reason: Insomnia Ondansetron HCl (Ondansetron Hcl 4 Mg/2 Ml Vial) 4 mg IVPUSH Q8H PRN PRN Reason: Nausea and Vomiting Sodium Chloride (0.9 % Sodium Chloride Flush 3 Ml Syringe) [facility] Admin: 12/03/23 01:08 Dose: 3 ml Documented By: RICARDO Labs 12/03/23 05:03 12/03/23 05:03 Labs: Laboratory Results - last 24 hr 12/02/23 12/02/23 12/02/23 19:37 20:30 20:46 MCV 88.2 MCH 27.3 MCHC 30.9 L RDW 13.6 Plt Count 160 D MPV 10.5 Immature Gran % (Auto) 0.4 Neut % (Auto) 78.5 H Lymph % (Auto) 13.0 L [place] % (Auto) 6.3 Eos % (Auto) 1.5 Baso % (Auto) 0.3 Lymph # (Auto) 1.2 [place] # (Auto) 0.6 Eos # (Auto) 0.1 Baso # (Auto) 0.0 Abs Immat Gran (auto) 0.04 H Absolute Neuts (auto) 7.0 Absolute Nucleated RBC 0.000 Nucleated RBC % (auto) 0.0 PT 14.9 H INR 1.2 H APTT 29.6 VBG pH 7.37 VBG pCO2 48 VBG pO2 48 VBG HCO3 28 H VBG O2 Saturation 72.0 VBG Base Excess 2.9 Anion Gap 18 Estim Creat Clear Calc 8.2 Estimated GFR 8 POC Glucose 312 H Random Glucose 351 H* Lactic Acid 1.8 Calcium 8.1 L Total Bilirubin 0.2 AST 12 ALT 7 Alkaline Phosphatase 205 H Troponin I High Sens 23.9 H B-Natriuretic Peptide 3417 H Total Protein 7.3 Albumin 3.3 L 12/02/23 12/02/23 12/03/23 21:46 22:21 05:03 MCV 87.1 MCH 27.3 MCHC 31.4 RDW 13.6 Plt Count 158 L MPV 11.2 Immature Gran % (Auto) 0.6 H Neut % (Auto) 71.4 Lymph % (Auto) 17.4 L [place] % (Auto) 8.1 Eos % (Auto) 2.2 Baso % (Auto) 0.3 Lymph # (Auto) 1.6 [place] # (Auto) 0.7 Eos # (Auto) 0.2 Baso # (Auto) 0.0 Abs Immat Gran (auto) 0.05 H Absolute Neuts (auto) 6.4 Absolute Nucleated RBC 0.000 Nucleated RBC % (auto) 0.0 PT INR APTT VBG pH VBG pCO2 VBG pO2 VBG HCO3 VBG O2 Saturation VBG Base Excess Anion Gap 18 19 Estim Creat Clear Calc 8.3 8.2 Estimated GFR 8 8 POC Glucose 160 H Random Glucose 181 H 104 Lactic Acid Calcium 8.2 L 8.4 Total Bilirubin AST ALT Alkaline Phosphatase Troponin I High Sens B-Natriuretic Peptide Total Protein Albumin Assessment and Plan (1) End stage renal disease on dialysis: Status: Acute (2) Acute hyperkalemia: Status: Acute Plan This is a 68-year-old female with pertinent history of ESRD on hemodialysis (Monday, Monday), congestive heart failure with reduced ejection fraction, insulin-dependent type 2 diabetes mellitus, mixed hyperlipidemia, essential hypertension, history of CVA, mood disorder who presents to the emergency department for evaluation of dyspnea. Acute respiratory distress due to acute on chronic congestive heart failure with reduced ejection fraction in a patient with missed hemodialysis session Consulted Nephrology>dialysis today Low-salt diet. Strict I's and O's. Patient is on beta-kain and ARB ESRD on hemodialysis usual days MWF Hyperkalemia due to missed hemodialysis Lokelma and IV furosemide. Closely monitor Insulin-dependent type 2 diabetes mellitus with hyperglycemia Initiating basal bolus insulin regimen Essential hypertension Continue home antihypertensives History of CVA on plavix, aspirin and high-intensity statin Mood disorder. Continue mood stabilizers Obesity Counseled regarding diet and weight loss DVT prophylaxis: Heparin Attending Dr. Starkey Full code continue hospital stay for optimization of volume status, closely monitoring serum electrolytes (as above), which is not possible in a lesser acute setting. Specialist consult pending Quality Stroke Does the patient have a stroke diagnosis?: No VTE Prior VTE?: No VTE Risk Level:: Medical - moderate - high VTE Device Contraindication: Treatment Not Indicated VTE Drug Contraindication: N/A - Med Ordered
--- NOTE | 2023-12-03 08:18 | PM.PNNEP ---
Subjective Subjective Date of Service: 12/03/23 Interval history: Pt seen on HD Feels better K is better Physical Exam Vital Signs: Vital Signs: Last Vital Signs Temp 97.8 F 12/02/23 21:20 Pulse 70 12/02/23 22:31 Resp 19 12/02/23 22:31 BP 157/88 H 12/02/23 22:31 Pulse Ox 98 12/02/23 22:31 O2 Del Method Room Air 12/02/23 22:31 BMI result Body Mass Index 32.8 Const: General: alert and awake HEENT: Head: Yes normocephalic and Yes atraumatic Neck: Neck: Yes supple Resp: Auscultation: diminished lung sounds Cardio: Heart sounds: S1 normal heart sound present and S2 normal heart sound present GI: Palpation (GI): Soft to palpation and nontender Neuro: General: moves all extremities Extrem: General: Yes normal to inspection Objective Data Labs 12/03/23 05:03 12/03/23 05:03 Labs: Laboratory Results - last 24 hr 12/02/23 12/02/23 12/02/23 19:37 20:30 20:46 WBC 8.9 RBC 4.25 Hgb 11.6 L Hct 37.5 MCV 88.2 MCH 27.3 MCHC 30.9 L RDW 13.6 Plt Count 160 D MPV 10.5 Immature Gran % (Auto) 0.4 Neut % (Auto) 78.5 H Lymph % (Auto) 13.0 L [place] % (Auto) 6.3 Eos % (Auto) 1.5 Baso % (Auto) 0.3 Lymph # (Auto) 1.2 [place] # (Auto) 0.6 Eos # (Auto) 0.1 Baso # (Auto) 0.0 Abs Immat Gran (auto) 0.04 H Absolute Neuts (auto) 7.0 Absolute Nucleated RBC 0.000 Nucleated RBC % (auto) 0.0 PT 14.9 H INR 1.2 H APTT 29.6 VBG pH 7.37 VBG pCO2 48 VBG pO2 48 VBG HCO3 28 H VBG O2 Saturation 72.0 VBG Base Excess 2.9 Sodium 140 Potassium 7.1 H* D Chloride 102 Carbon Dioxide 27 Anion Gap 18 BUN 53 H Creatinine 5.32 H* Estim Creat Clear Calc 8.2 Estimated GFR 8 POC Glucose 312 H Random Glucose 351 H* Lactic Acid 1.8 Calcium 8.1 L Total Bilirubin 0.2 AST 12 ALT 7 Alkaline Phosphatase 205 H Troponin I High Sens 23.9 H B-Natriuretic Peptide 3417 H Total Protein 7.3 Albumin 3.3 L 12/02/23 12/02/23 12/03/23 21:46 22:21 05:03 WBC 8.9 RBC 3.95 L Hgb 10.8 L Hct 34.4 L MCV 87.1 MCH 27.3 MCHC 31.4 RDW 13.6 Plt Count 158 L MPV 11.2 Immature Gran % (Auto) 0.6 H Neut % (Auto) 71.4 Lymph % (Auto) 17.4 L [place] % (Auto) 8.1 Eos % (Auto) 2.2 Baso % (Auto) 0.3 Lymph # (Auto) 1.6 [place] # (Auto) 0.7 Eos # (Auto) 0.2 Baso # (Auto) 0.0 Abs Immat Gran (auto) 0.05 H Absolute Neuts (auto) 6.4 Absolute Nucleated RBC 0.000 Nucleated RBC % (auto) 0.0 PT INR APTT VBG pH VBG pCO2 VBG pO2 VBG HCO3 VBG O2 Saturation VBG Base Excess Sodium 142 142 Potassium 5.7 H 5.6 H Chloride 105 104 Carbon Dioxide 25 25 Anion Gap 18 19 BUN 52 H 52 H Creatinine 5.25 H* 5.28 H* Estim Creat Clear Calc 8.3 8.2 Estimated GFR 8 8 POC Glucose 160 H Random Glucose 181 H 104 Lactic Acid Calcium 8.2 L 8.4 Total Bilirubin AST ALT Alkaline Phosphatase Troponin I High Sens B-Natriuretic Peptide Total Protein Albumin Procedures Date of Service Date of Service: 12/03/23 Assessment & Plan Assessment and plan (1) End stage renal disease: Status: Inactive Assessment and Plan: This is a 68-year-old female with pertinent history of ESRD on hemodialysis (Monday, Monday), congestive heart failure with reduced ejection fraction, insulin-dependent type 2 diabetes mellitus, mixed hyperlipidemia, essential hypertension, history of CVA, mood disorder who presents to the emergency department for evaluation of dyspnea. Acute respiratory distress due to acute on chronic congestive heart failure with reduced ejection fraction in a patient with missed hemodialysis session Low-salt diet. Strict I's and O's. 2 K bath after 1 hr of 1 K bath - Vol removal as tolerated Hyperkalemia due to missed hemodialysis Received Lokelma and IV furosemide. Insulin-dependent type 2 diabetes mellitus with hyperglycemia Initiating basal bolus insulin regimen Essential hypertension Continue home antihypertensives Patient hemodialysis usually Monday/Monday. CAN BE D/c'd from renal standpoint If pt staying next HD in AM Thx Dr. Kaur Time Spent With Patient Time: Total time managing care of this patient today ____ minutes. Progress Note: Quality Stroke Does the patient have a stroke diagnosis?: No
[2023-12-03 12:00] VITALS: BP 158/66; PULSE 67; RESP 18; TEMP 36.4; O2SAT 95
[2023-12-03 12:14] LABS: Glucose, Whole Blood 74 mg/dL (60-115)
[2023-12-03 12:42] VITALS: BMI 32.8
[2023-12-03] MEDS: Sodium Zirconium Cyclosilicate 10 GM POWD.PACK PO (12:42)
[2023-12-03] MEDS: Heparin Sodium,Porcine 5,000 UNIT/ML VIAL 5000 UNIT SUBCUT ×2 (12:42→22:47)
[2023-12-03 14:02] LABS: Glucose, Whole Blood 176 mg/dL (60-115)
--- NOTE | 2023-12-03 14:02 | PHA.MEDREC ---
Pharmacy Consult ? Medication Reconciliation Pharmacy has completed the medication reconciliation. used claim history, recent office visit notes, and recent discharge papers to verify medications.
--- NOTE | 2023-12-03 15:22 | MHC.CM.PN ---
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
[2023-12-03 16:00] VITALS: BP 143/67; PULSE 72; RESP 18; TEMP 36.3; O2SAT 97
[2023-12-03 16:16] LABS: Glucose, Whole Blood 202 mg/dL (60-115)
[2023-12-03] MEDS: Insulin Lispro 100 UNIT/ML 3 ML VIAL SUBCUT ×2 (16:26→22:48)
--- NOTE | 2023-12-03 19:32 | HO.SKINPHOTO ---
Location: Right Foot Category: Stage: Length: Width: Depth: cm Location: Category: Stage: Length: Width: Depth: cm Location: Category: Stage: Length: Width: Depth: cm Location: Category: Stage: Length: Width: Depth: cm Location: Category: Stage: Length: Width: Depth: cm Location: Category: Stage: Length: Width: Depth: cm
[2023-12-03 20:00] VITALS: BP 151/67; PULSE 78; RESP 20; TEMP 36.2; O2SAT 95
[2023-12-03 20:25] LABS: Glucose, Whole Blood 207 mg/dL (60-115)
[2023-12-03] MEDS: Melatonin 3 MG TABLET 6 MG PO (22:47)
[2023-12-03] MEDS: Acetaminophen 325 MG TABLET 650 MG PO (22:47)
[2023-12-03 23:52] VITALS: BP 138/86; PULSE 73; RESP 20; TEMP 36.2; O2SAT 96
--- NOTE | 2023-12-04 | ECG_ITS ---
Test Reason : bigeminy Blood Pressure : / mmHG Vent. Rate : 072 BPM Atrial Rate : 072 BPM P-R Int : 166 ms QRS Dur : 122 ms QT Int : 458 ms P-R-T Axes : 051 026 230 degrees QTc Int : 501 ms Sinus rhythm with occasional Premature ventricular complexes Left ventricular hypertrophy with QRS widening and repolarization abnormality ( Heriberto product ) Abnormal ECG When compared with ECG of 02-DEC-2023 19:41, Premature ventricular complexes are now Present Referred By: Maria Luisa Matos Electronically Signed By:Nik Lou
[2023-12-04 03:05] VITALS: BP 139/67; PULSE 69; RESP 20; TEMP 36.1; O2SAT 96
--- NOTE | 2023-12-04 05:45 | PC.NURSE ---
0000 Pt has a wound on right middle finger pad. With [facility] family service center director patient explained that when she gets depressed she bites the skin on the pad of finger. Pt had a bandage from home covering it. Bandage removed and approx dime size wound on pad of finger. Cleansed NS, Xeroform and dry sterile dressing covering placed on the wound.
--- NOTE | 2023-12-04 07:17 | HO.SKINPHOTO ---
Location RIGHT HAND MIDDLE FINGER Category: Stage: Length: Width: Depth: cm
[2023-12-04 07:43] VITALS: BP 142/78; PULSE 70; RESP 20; TEMP 36.1; O2SAT 97
[2023-12-04 07:50] LABS: Glucose, Whole Blood 64 mg/dL (60-115)
[2023-12-04] MEDS: Heparin Sodium,Porcine 5,000 UNIT/ML VIAL 5000 UNIT SUBCUT ×2 (08:01→20:59)
[2023-12-04] MEDS: 0.9 % Sodium Chloride Flush 3 ML SYRINGE IVFLUSH ×3 (08:01→21:00)
--- NOTE | 2023-12-04 09:10 | PM.DS ---
DS: Providers Provider Date of Service: 12/05/23 Date of admission: 12/02/23 21:15 Primary care physician: Alexys Avila MD Consults: 12/02/23 21:21 Consult to Nephrology Routine Consulting Provider: [facility] Reason for consultation: ESRD on HD 12/04/23 05:49 Consult to Wound Care Routine Reason for consultation: Right middle finger pad wound Has provider been notified: Yes DS: Diagnosis Discharge Diagnosis (1) End stage renal disease on dialysis: Status: Acute (2) Acute hyperkalemia: Status: Acute DS: Summary Hospital Course Hospital Course: And physical as per admitting provider. This is a 68-year-old female with pertinent history of ESRD on hemodialysis (Monday, Monday), congestive heart failure with reduced ejection fraction, insulin-dependent type 2 diabetes mellitus, mixed hyperlipidemia, essential hypertension, history of CVA, mood disorder who presents to the emergency department for evaluation of dyspnea. Patient states she started having dyspnea a couple of days prior to presentation. It has been progressive and worsened over the last 2 days. No cough, fever or chills. Patient does state that she only goes for dialysis twice a week. Her last dialysis session was 11/27 and she missed her dialysis session yesterday, 11/[address] Does report orthopnea. Does have a history of noncompliance with hemodialysis sessions in the past. No chest discomfort, palpitations, abdominal pain, changes in bowel habits. Patient states she does make some urine. In the emergency department, imaging with vascular prominence and BNP found to be elevated 68-year-old woman admitted with acute respiratory distress secondary to chronic congestive heart failure with reduced ejection fraction in light of missed hemodialysis session. She had dialysis yesterday with fluid removal. At this time patient has no longer hypoxic, reports that she feels better. She did have the option of having dialysis again today but she declined and reported that she wanted to go home. She was seen evaluated by Nephrology during hospitalization. She also had hyperkalemia secondary to missed hemodialysis. She was treated with Lokelma and 1 dose of IV Lasix. At this time patient is hemodynamically stable and plan is to discharge home with family. She should follow her regular dialysis schedule Monday, Monday and Monday. Hypertension. Continue amlodipine and valsartan Diabetes mellitus type 2. Continue home medications History of CVA. Continue aspirin, Plavix and statin Obesity. BMI 32.9. Discussed importance of weight management as this may be contributing to worsening of other comorbidities Time Attestation Discharge Coordination Time: discharge time of ____ minutes Quality: Safe Use of Opioids Does Pt have an Active Cancer Diagnosis on the Problem List?: No Quality: Stroke Does the patient have a stroke diagnosis?: No Physical Exam Vital Signs: Vital Signs: Last Vital Signs Temp 97.0 F 12/04/23 07:43 Pulse 70 12/04/23 07:43 Resp 20 12/04/23 07:43 BP 142/78 H 12/04/23 07:43 Pulse Ox 97 12/04/23 07:43 O2 Del Method Room Air 12/04/23 07:43 BMI result Body Mass Index 32.8 DS: Data Data Completed and Pending Completed studies during hospitalization [Text1]: Procedures Detachment at Left Index Finger, Mid, Open Approach (09/15/22) Dilation of Esophagus, Via Natural or Artificial Opening Endoscopic (01/31/22) Dilation of Upper Esophagus, Via Natural or Artificial Opening Endoscopic (08/16/21) Fluoroscopy of Superior Vena Cava using Low Osmolar Contrast, Guidance (12/27/22) Insertion of Infusion Device into Superior Vena Cava, Percutaneous Approach (12/27/22) Introduction of Other Thrombolytic into Peripheral Vein, Percutaneous Approach (06/05/21) Performance of Urinary Filtration, Intermittent, Less than 6 Hours Per Day (10/07/23) Transfusion of Nonautologous Red Blood Cells into Peripheral Vein, Percutaneous Approach (12/27/22) Labs on day of discharge: Laboratory Results - last 24 hr 12/03/23 12/03/23 12/03/23 12:11 13:58 16:06 Hold Purple Top POC Glucose 74 176 H 202 H 12/03/23 12/04/23 20:15 07:47 Hold Purple Top SEE NOTE POC Glucose 207 H 64 Preliminary micro results at discharge 12/02/23 19:47 Blood Culture - Preliminary Blood - Venous No growth after 24 hours. 12/02/23 19:37 Blood Culture - Preliminary Blood - Venous No growth after 24 hours. Discharge Plan Discharge Anticipated Discharge Date/Time: 12/05/23 09:58 Patient Disposition: Home, Self-Care Discharge Diagnosis: CHF ESRD on dialysis Hyperkalemia Referrals: Alexys Avila MD [Primary Care Provider] - 1 Week Discharge Medications: Continued atorvastatin 80 mg tablet 80 mg PO BEDTIME clopidogrel 75 mg tablet 75 mg PO DAILY aspirin 81 mg tablet,delayed release (DR/EC) 81 mg PO BEDTIME insulin glargine [Lantus Solostar U-100 Insulin] 100 unit/mL (3 mL) insulin pen 20 unit subcut BEDTIME magnesium oxide 400 mg (241.3 mg magnesium) tablet 400 mg PO DAILY sevelamer carbonate 800 mg tablet 800 mg PO TIDWM carvedilol 12.5 mg Tablet 12.5 mg PO BIDWM Qty: 60 1RF Protocol: Hold for SBP/HR < HOLD for SBP < : 90 HOLD for HR < : 60 valsartan 80 mg Tablet 80 mg PO BID Qty: 60 1RF Protocol: Hold for SBP< HOLD for SBP < : 90 amlodipine 5 mg tablet 5 mg PO DAILY melatonin 5 mg tablet 5 - 10 mg PO BEDTIME PRN (Reason: Sleep) albuterol sulfate 90 mcg/actuation HFA aerosol inhaler 2 inh inhalation Q4H PRN (Reason: shortness of breath or wheezing) sennosides [Natural Senna Laxative] 8.6 mg tablet 17.2 mg PO BEDTIME Qty: 60 3RF pantoprazole 40 mg tablet,delayed release (DR/EC) 40 mg PO DAILY Qty: 30 2RF Rx Instructions: take one tablet half an hour before breakfast (DME) lancets [OneTouch Delica Plus Lancet] 33 gauge misc See Rx Instructions .ROUTE TID Qty: 100 Rx Instructions: As directed (DME) pen needle, diabetic [Pentips] 32 gauge x 5/32 needle See Rx Instructions .ROUTE DIRECTED Qty: 1200 Rx Instructions: As directed (DME) OneTouch Ultra Test Strip See Rx Instructions .ROUTE TID Qty: 10 Rx Instructions: As directed insulin aspart U-100 [Novolog FlexPen U-100 Insulin] 100 unit/mL (3 mL) insulin pen 1 sliding scale dose subcut NEEDED PRN (Reason: bs >200) Rx Instructions: 8-12 units SLIDING SCALE Discharge Orders: Discharge Order (Routine); Ordered 12/05/23 Ordered By: Maria Luisa Matos Diet: Advance to usual diet Activity on Discharge: As tolerated Stand Alone Forms: Patient Portal Discharge page Care Plan Goals: Continue on regular dialysis sessions MWF Health Concerns: CHF ESRD on dialysis Hyperkalemia Plan of Treatment: Follow up with primary care provider as needed Take all medications as prescribed Assessment: See disharge summary
[2023-12-04 09:30] LABS: Anion Gap 15 (12-20); Blood Urea Nitrogen 30 mg/dL (9-16); Calcium 8.4 mg/dL (8.4-10.2); Carbon Dioxide 25 mmol/L (22-29); Chloride 102 mmol/L (96-108); Estimated Glomerular Filt Rate 11; Glucose Random 87 mg/dL (60-115); Potassium 4.6 mmol/L (3.3-5.1); Sodium 137 mmol/L (135-145)
[2023-12-04 09:31] LABS: Anion Gap 15 (12-20); Blood Urea Nitrogen 29 mg/dL (9-16); Calcium 8.5 mg/dL (8.4-10.2); Carbon Dioxide 25 mmol/L (22-29); Chloride 102 mmol/L (96-108); Creatinine Clr Calc Pharmacy 11.1; Estimated Glomerular Filt Rate 11; Glucose Random 88 mg/dL (60-115); Potassium 4.7 mmol/L (3.3-5.1); Sodium 137 mmol/L (135-145)
--- NOTE | 2023-12-04 09:34 | P.PNNP_ITS ---
Subjective Subjective Date of Service: 12/04/23 Interval history: Pt seen on HD Feels better K is better Physical Exam 2 Vital Signs: Vital Signs: Last Vital Signs Temp 97.0 F 12/04/23 07:43 Pulse 70 12/04/23 07:43 Resp 20 12/04/23 07:43 BP 142/78 H 12/04/23 07:43 Pulse Ox 97 12/04/23 07:43 O2 Del Method Room Air 12/04/23 07:43 BMI result Body Mass Index 32.8 Const: General: alert and awake HEENT: Head: Yes normocephalic and Yes atraumatic Neck: Neck: Yes supple Resp: Auscultation: diminished lung sounds Cardio: Heart sounds: S1 normal heart sound present and S2 normal heart sound present GI: Palpation (GI): Soft to palpation and nontender Neuro: General: moves all extremities Extrem: General: Yes normal to inspection Objective Data Labs 12/03/23 05:03 12/04/23 08:23 Labs: Laboratory Results - last 24 hr 12/03/23 12/03/23 12/03/23 12:11 13:58 16:06 Hold Purple Top Sodium Potassium Chloride Carbon Dioxide Anion Gap BUN Creatinine Estim Creat Clear Calc Estimated GFR POC Glucose 74 176 H 202 H Random Glucose Calcium 12/03/23 12/04/23 12/04/23 20:15 07:47 08:23 Hold Purple Top SEE NOTE Sodium 137 Potassium Chloride Carbon Dioxide Anion Gap BUN Creatinine Estim Creat Clear Calc Estimated GFR POC Glucose 207 H 64 Random Glucose Calcium 12/04/23 12/04/23 12/04/23 08:23 08:23 08:23 Hold Purple Top Sodium 137 Potassium 4.7 4.6 Chloride 102 102 Carbon Dioxide 25 Anion Gap BUN Creatinine Estim Creat Clear Calc Estimated GFR POC Glucose Random Glucose Calcium 12/04/23 12/04/23 12/04/23 08:23 08:23 08:23 Hold Purple Top Sodium Potassium Chloride Carbon Dioxide 25 Anion Gap 15 15 BUN 29 H 30 H Creatinine 3.95 H Estim Creat Clear Calc Estimated GFR POC Glucose Random Glucose Calcium 12/04/23 12/04/23 12/04/23 08:23 08:23 08:23 Hold Purple Top Sodium Potassium Chloride Carbon Dioxide Anion Gap BUN Creatinine 3.97 H Estim Creat Clear Calc 11.1 11.0 Estimated GFR 11 11 POC Glucose Random Glucose 88 Calcium 12/04/23 12/04/23 08:23 08:23 Hold Purple Top Sodium Potassium Chloride Carbon Dioxide Anion Gap BUN Creatinine Estim Creat Clear Calc Estimated GFR POC Glucose Random Glucose 87 Calcium 8.5 8.4 Microbiology Microbiology Results: Microbiology 12/02/23 19:47 Blood - Venous Blood Culture - Preliminary No growth after 24 hours. 12/02/23 19:37 Blood - Venous Blood Culture - Preliminary No growth after 24 hours. Procedures Date of Service Date of Service: 12/04/23 Assessment & Plan Assessment and plan (1) End stage renal disease: Status: Inactive Assessment and Plan: This is a 68-year-old female with pertinent history of ESRD on hemodialysis (Monday, Monday), congestive heart failure with reduced ejection fraction, insulin-dependent type 2 diabetes mellitus, mixed hyperlipidemia, essential hypertension, history of CVA, mood disorder who presents to the emergency department for evaluation of dyspnea. Acute respiratory distress due to acute on chronic congestive heart failure with reduced ejection fraction in a patient with missed hemodialysis session Low-salt diet. Strict I's and O's. Seen on HD - Vol removal as tolerated Hyperkalemia due to missed hemodialysis Received Lokelma and IV furosemide. Insulin-dependent type 2 diabetes mellitus with hyperglycemia Initiating basal bolus insulin regimen Essential hypertension Continue home antihypertensives Patient hemodialysis usually Monday/Monday. CAN BE D/c'd from renal standpoint Thx Dr. Kaur Time Spent With Patient Time: Total time managing care of this patient today ____ minutes. Progress Note: Quality Stroke Does the patient have a stroke diagnosis?: No
--- NOTE | 2023-12-04 10:54 | HO.PM.IMPN ---
Subjective Subjective Date of Service: 12/04/23 Review of Systems Follow up CHF feeling better after dialysis Physical Exam Vital Signs: Vital Signs: Last Vital Signs Temp 97.0 F 12/04/23 07:43 Pulse 70 12/04/23 07:43 Resp 20 12/04/23 07:43 BP 142/78 H 12/04/23 07:43 Pulse Ox 97 12/04/23 07:43 O2 Del Method Room Air 12/04/23 07:43 BMI result Body Mass Index 32.8 Appearing in no acute distress lung sounds are clear to auscultation heart regular rate rhythm, clear S1, S2 positive bowel sounds, abdomen is soft, nontender neuro patient is alert x3, no focal deficits Objective Data Active Medications Acetaminophen (Acetaminophen 325 Mg Tablet) 650 mg PO Q6H PRN PRN Reason: Pain, Mild (Pain Scale 1-3) Last Admin: 12/03/23 22:47 Dose: 650 mg Documented By: RUSTY Dextrose (Dextrose 50 % 25 Gm/50 Ml Syringe) 25 gm IVPUSH Q15M PRN; Protocol PRN Reason: per Hypoglycemia Standing Ord. Glucose (Glucose Gel 15 Gm Gel..Gram.) 15 gm PO Q15M PRN; Protocol PRN Reason: per Hypoglycemia Standing Ord. Heparin Sodium (Porcine) (Heparin Sodium,Porcine 5,000 Unit/Ml Vial) 5,000 unit SUBCUT Q12H [facility] Last Admin: 12/04/23 08:01 Dose: 5,000 unit Documented By: HEDY Insulin Human Lispro (Insulin Lispro 100 Unit/Ml 3 Ml Vial) 0 unit SUBCUT QIDACHS [facility]; Protocol Last Admin: 12/04/23 07:59 Dose: Not Given Documented By: HEDY Non-Admin Reason: No Insulin Coverage Melatonin (Melatonin 3 Mg Tablet) 6 mg PO BEDTIME PRN PRN Reason: Insomnia Last Admin: 12/03/23 22:47 Dose: 6 mg Documented By: RUSTY Ondansetron HCl (Ondansetron Hcl 4 Mg/2 Ml Vial) 4 mg IVPUSH Q8H PRN PRN Reason: Nausea and Vomiting Sodium Chloride (0.9 % Sodium Chloride Flush 3 Ml Syringe) 3 ml IVFLUSH QSHIFT [facility] Last Admin: 12/04/23 08:01 Dose: 3 ml Documented By: HEDY Labs 12/03/23 05:03 12/04/23 08:23 Labs: Laboratory Results - last 24 hr 12/03/23 12/03/23 12/03/23 12:11 13:58 16:06 Hold Purple Top Anion Gap Estim Creat Clear Calc Estimated GFR POC Glucose 74 176 H 202 H Random Glucose Calcium 12/03/23 12/04/23 12/04/23 20:15 07:47 08:23 Hold Purple Top SEE NOTE Anion Gap 15 Estim Creat Clear Calc Estimated GFR POC Glucose 207 H 64 Random Glucose Calcium 12/04/23 12/04/23 12/04/23 08:23 08:23 08:23 Hold Purple Top Anion Gap 15 Estim Creat Clear Calc 11.1 11.0 Estimated GFR 11 11 POC Glucose Random Glucose 88 Calcium 12/04/23 12/04/23 08:23 08:23 Hold Purple Top Anion Gap Estim Creat Clear Calc Estimated GFR POC Glucose Random Glucose 87 Calcium 8.5 8.4 Microbiology Microbiology Results: Microbiology 12/02/23 19:47 Blood Culture - Preliminary Blood - Venous No growth after 24 hours. 12/02/23 19:37 Blood Culture - Preliminary Blood - Venous No growth after 24 hours. Assessment and Plan (1) End stage renal disease on dialysis: Status: Acute (2) Acute hyperkalemia: Status: Acute Plan This is a 68-year-old female with pertinent history of ESRD on hemodialysis (Monday, Monday), congestive heart failure with reduced ejection fraction, insulin-dependent type 2 diabetes mellitus, mixed hyperlipidemia, essential hypertension, history of CVA, mood disorder who presents to the emergency department for evaluation of dyspnea. Acute respiratory distress due to acute on chronic congestive heart failure with reduced ejection fraction in a patient with missed hemodialysis session Consulted Nephrology>dialysis 3/3 and 3/4 Low-salt diet. Strict I's and O's. Patient is on beta-kain and ARB ESRD on hemodialysis usual days MWF Hyperkalemia due to missed hemodialysis Lokelma and IV furosemide. Closely monitor Insulin-dependent type 2 diabetes mellitus with hyperglycemia Initiating basal bolus insulin regimen Essential hypertension Continue home antihypertensives History of CVA on plavix, aspirin and high-intensity statin Mood disorder. Continue mood stabilizers Obesity Counseled regarding diet and weight loss DVT prophylaxis: Heparin Attending Dr. Starkey Full code DISPO plan to dc home when medically clear, daughter stated that patients hospital bed is broken and new bed will be delivered in the morning continue hospital stay for optimization of volume status, closely monitoring serum electrolytes (as above), which is not possible in a lesser acute setting. Specialist consult pending Quality Stroke Does the patient have a stroke diagnosis?: No VTE Prior VTE?: No VTE Risk Level:: Medical - moderate - high VTE Device Contraindication: Treatment Not Indicated VTE Drug Contraindication: N/A - Med Ordered
--- NOTE | 2023-12-04 10:54 | MHC.CM.PN ---
CM spoke with Daughter/HCP/Adelita @ [phone]. Home continues to be the goal. Per Adelita, the hospital bed that the Patient has is broken and [facility] is delivering a new hospital bed tomorrow. If Patient is medically cleared tomorrow, dc would be planned at a time after the bed has been delivered.CM will follow.
[2023-12-04 11:23] VITALS: BP 142/31; PULSE 65; RESP 20; TEMP 36.3; O2SAT 97
[2023-12-04 11:29] LABS: Glucose, Whole Blood 134 mg/dL (60-115)
[2023-12-04 15:08] VITALS: PULSE 70; RESP 20; TEMP 36.7; O2SAT 96
[2023-12-04 15:34] VITALS: BP 120/68
[2023-12-04 15:52] LABS: Glucose, Whole Blood 217 mg/dL (60-115)
[2023-12-04] MEDS: Insulin Lispro 100 UNIT/ML 3 ML VIAL SUBCUT ×2 (15:59→20:59)
[2023-12-04 20:00] VITALS: BP 169/77; PULSE 80; RESP 20; TEMP 36.1; O2SAT 98
[2023-12-04 20:18] LABS: Glucose, Whole Blood 310 mg/dL (60-115)
[2023-12-04] MEDS: traZODone HCL 25 MG HALFTAB 12.5 MG PO (23:27)
[2023-12-05] VITALS: BP 158/65; PULSE 74; RESP 18; TEMP 36.1; O2SAT 99
[2023-12-05 01:22] VITALS: RESP 20
[2023-12-05 04:00] VITALS: BP 154/83; PULSE 70; RESP 19; TEMP 36.1; O2SAT 97
[2023-12-05 07:56] VITALS: BP 150/75; PULSE 77; RESP 17; TEMP 36; O2SAT 96
[2023-12-05] MEDS: 0.9 % Sodium Chloride Flush 3 ML SYRINGE IVFLUSH (07:56)
[2023-12-05] MEDS: Heparin Sodium,Porcine 5,000 UNIT/ML VIAL 5000 UNIT SUBCUT (07:56)
[2023-12-05 07:57] LABS: Glucose, Whole Blood 125 mg/dL (60-115)
--- NOTE | 2023-12-05 10:47 | HO.WOUND ---
Wound Consult: Initial 68yr old?F admitted to [facility] on 12/02/23 - See progress notes and H&P for detailed history.? Wound consult placed for Right Middle Finger Wound.? Patient agreeable to assessment and photo documentation.? Pt reports via direct care nurse the wound is from her picking and biting the tissue as it heals. Right 3rd Finger Etiology: Self inflicted traumatic injury ??Present on Admission Wound Bed: pink dry wound bed Drainage / Odor: none noted - ADDRESSER Edges: ? calloused Laurence wound: Intact ? No Induration, Fluctuance or Warmth noted Pain: denies Goals of Treatment: ? Moist wound healing and cover dressing to protect from continued injury Recommendations: 1. Right 3rd Finger - Cleanse with routine Ph balanced soap and water. Pat dry. Cover with single layer of xeroform cut to size, cover with dry gauze and change daily. Re-consult wound care Nurse for wound deterioration or wound changes.
--- NOTE | 2023-12-05 11:04 | MHC.CM.PN ---
Second IMM given 12/04. Pt is medically cleared for D/C home self-care with daughter, transport set up via BLS/[facility] today at 2pm.
[2023-12-05 12:00] VITALS: PULSE 78; RESP 16; TEMP 36; O2SAT 99
[2023-12-05 12:31] LABS: Glucose, Whole Blood 188 mg/dL (60-115)
[2023-12-05] MEDS: Insulin Lispro 100 UNIT/ML 3 ML VIAL SUBCUT (12:57)
[2023-12-05 15:08] VITALS: BP 158/78; PULSE 79; RESP 20; TEMP 36.7; O2SAT 100
[2023-12-05 16:04] LABS: Glucose, Whole Blood 255 mg/dL (60-115)
== END 2023-12-05 16:44 | disposition home or self-care (01) | DRG 640 ==
LOC: HO.ED 18:41 → HO.EDOVER 22:55 → HO.IMC 12-03 11:07
PROVIDERS: Physician Assistant; Admitting Provider Student in an Organized Health Care Education/Training Program; Emergency Provider Emergency Medicine; PCP Internal Medicine; Visit Provider Nurse Practitioner Acute Care
DX: E87.5 Hyperkalemia (principal); I50.23 Acute on chronic systolic (congestive) heart failure; N18.6 End stage renal disease; I13.2 Hypertensive heart and chronic kidney disease with heart failure and with stage 5 chronic kidney disease, or end stage renal disease; E11.22 Type 2 diabetes mellitus with diabetic chronic kidney disease; E66.9 Obesity, unspecified; Z68.32 Body mass index [BMI] 32.0-32.9, adult; E78.2 Mixed hyperlipidemia; R06.03 Acute respiratory distress; Z86.73 Personal history of transient ischemic attack (TIA), and cerebral infarction without residual deficits; E11.65 Type 2 diabetes mellitus with hyperglycemia; Z99.2 Dependence on renal dialysis; Z91.158 Patient's noncompliance with renal dialysis for other reason; Z91.040 Latex allergy status; Z79.4 Long term (current) use of insulin; Z79.02 Long term (current) use of antithrombotics/antiplatelets; Z79.82 Long term (current) use of aspirin; Z79.899 Other long term (current) drug therapy
CPT/HCPCS: 36415; 71045; 80048; 80053; 82803; 82947; 83605; 83880; 84484; 85025; 85610; 85730; 87040; 90999; 93005; 99285; J0613; J1644; J1940

== ENCOUNTER → 2023-12-02 17:57 | Outpatient (BNV) | payer OTHER, SELFPAY | PROVIDERS: Emergency Provider Emergency Medicine; PCP Internal Medicine; Visit Provider Student in an Organized Health Care Education/Training Program | DX: I50.9 Heart failure, unspecified (principal); N18.6 End stage renal disease; Z99.2 Dependence on renal dialysis; E87.5 Hyperkalemia | CPT/HCPCS: 99223; 99232; 99238 ==

== ENCOUNTER → 2023-12-02 18:57 | Outpatient (BNV) | payer OTHER, SELFPAY | PROVIDERS: Admitting Provider Student in an Organized Health Care Education/Training Program; Emergency Provider Emergency Medicine; PCP Internal Medicine; Visit Provider Internal Medicine | DX: R06.02 Shortness of breath (principal); I45.4 Nonspecific intraventricular block | CPT/HCPCS: 93010 ==

== ENCOUNTER 2023-12-02 21:15 | Outpatient (BNV) | payer OTHER, SELFPAY | END 2023-12-04 12:51 | PROVIDERS: Admitting Provider Student in an Organized Health Care Education/Training Program; Emergency Provider Emergency Medicine; PCP Internal Medicine; Visit Provider Internal Medicine Cardiovascular Disease | DX: I49.8 Other specified cardiac arrhythmias (principal) | CPT/HCPCS: 93010 ==

== ENCOUNTER 2023-12-07 09:44 | Emergency (ER) | payer OTHER, SELFPAY ==
--- NOTE | ~2023-12-07 | XR_ITS ---
EXAMINATION: XR CHEST CLINICAL INFORMATION: Cough. COMPARISON: 12/02/2023 TECHNIQUE: Frontal view of the chest was obtained. FINDINGS: Right chest wall central venous catheter with tip projecting over the cavoatrial junction. No focal consolidation. No pleural effusion. Cardiac silhouette is unchanged. XR/XR chest 1V IMPRESSION: No acute abnormality.
[2023-12-07 09:54] VITALS: BP 134/59; BP 151/37; PULSE 73; PULSE 76; RESP 20; TEMP 37.4; O2SAT 95; BMI 31.3
[2023-12-07 10:08] VITALS: PULSE 70; RESP 20; O2SAT 95
--- NOTE | 2023-12-07 10:41 | ED.URI ---
HPI - URI/Sore Throat General Chief Complaint: Upper Respiratory Symptoms Stated Complaint: cough per ems Time Seen by Provider: 12/07/23 10:07 Source: patient Mode of arrival: ambulatory Limitations: no limitations History of Present Illness HPI Narrative: 68-year-old female history of end-stage renal disease on dialysis, COPD, diabetes, CVA, left [id number] amputation, cerebral infarct presenting with complaints of dry cough for the past 3 days not improving. Patient reports she has not been around anyone who is sick. She has not missed any dialysis sessions. History of COPD however this feels different. Denies chest pain, shortness of breath, nausea, vomiting, diarrhea, abdominal pain, headache, vision changes, dizziness and weakness. Related Data Home Medications Medication Instructions Recorded Confirmed aspirin 81 mg tablet,delayed 81 mg PO BEDTIME 06/20/21 12/03/23 release atorvastatin 80 mg tablet 80 mg PO BEDTIME 06/20/21 12/03/23 clopidogrel 75 mg tablet 75 mg PO DAILY 06/20/21 12/03/23 insulin glargine 100 unit/mL (3 20 unit subcut BEDTIME 03/25/22 12/03/23 mL) subcutaneous pen (Lantus Solostar U-100 Insulin) magnesium oxide 400 mg (241.3 mg 400 mg PO DAILY 04/20/23 12/03/23 magnesium) tablet blood sugar diagnostic ([employer]Touch #10 ea 05/25/23 Ultra Test strips) insulin aspart U-100 100 unit/mL 1 sliding scale dose subcut 05/25/23 12/03/23 (3 mL) subcutaneous pen (Novolog NEEDED PRN bs >200 FlexPen U-100 Insulin aspart) lancets 33 gauge (OneTouch Delica #100 ea 05/25/23 Plus Lancet) pen needle, diabetic 32 gauge x #1,200 ea 05/25/23/32 (Pentips) albuterol sulfate 90 mcg/actuation 2 inh inhalation Q4H PRN shortness 09/21/23 12/03/23 aerosol inhaler of breath or wheezing melatonin 5 mg tablet 5 - 10 mg PO BEDTIME PRN Sleep 09/21/23 12/03/23 sevelamer carbonate 800 mg tablet 800 mg PO TIDWM 10/08/23 12/03/23 amlodipine 5 mg tablet 5 mg PO DAILY 11/19/23 12/03/23 Previous Rx's Medication Instructions Recorded carvedilol 12.5 mg tablet 12.5 mg PO BIDWM #60 tabs 10/11/23 valsartan 80 mg tablet 80 mg PO BID #60 tabs 10/11/23 pantoprazole 40 mg tablet,delayed 40 mg PO DAILY #30 tabs 11/22/23 release sennosides 8.6 mg tablet (Natural 17.2 mg (2 x 8.6 mg) PO BEDTIME 11/22/23 Senna Laxative) constipation #60 tabs albuterol sulfate 90 mcg/actuation 2 inh inhalation Q4-6H PRN 12/07/23 breath activated powder inhaler shortness of breath or wheezing #1 ea doxycycline hyclate 100 mg capsule 100 mg PO BID 10 days #20 caps 12/07/23 prednisone 20 mg tablet 20 mg PO DAILY 5 days #5 tabs 12/07/23 Allergies Allergy/AdvReac Type Severity Reaction Status Date / Time latex [LATEX] Allergy Intermediate ITCHY Verified 11/22/23 09:30 Review of Systems Review of Systems: Yes all other systems are reviewed and are negative [facility] Past Medical History Attestation statement: The following information was validated with the patient. Source: old records reviewed and nursing notes reviewed Medical History Congestive heart failure Hyperglycemia due to diabetes mellitus Anemia End stage renal disease Heart failure with reduced ejection fraction Dialysis patient, noncompliant Chronic kidney disease Thrombocytopenia CKD (chronic kidney disease) stage 4, GFR 15-29 ml/min Constipation Ischemic necrosis of finger Normocytic anemia Urinary tract infection due to ESBL Klebsiella Chronic heart failure with preserved ejection fraction (HFpEF) Hypomagnesemia Acute on chronic renal failure Essential hypertension HLD (hyperlipidemia) Non-ST elevated myocardial infarction Diabetes mellitus Nonischemic cardiomyopathy Irritable bowel syndrome with diarrhea Gastroparesis GERD (gastroesophageal reflux disease) Surgical History Status post amputation of finger H/O surgical amputation of finger History of laparoscopic cholecystectomy History of intestinal surgery Hx of eye surgery History of esophagogastroduodenoscopy (EGD) Hx of colonoscopy H/O: hysterectomy Family History Family History Father Lung cancer Mother Diabetes HTN (hypertension) Heart disease Sister Diabetes Heart disease Brother Heart disease Son Diabetes Daughter Diabetes Social History Social History Household Members: Children Household Members Other:: SNF Housing: House Do you presently have visiting nurse or other home services: No Unable to assess alcohol history related to: Unknown Alcohol intake: never Comment: report called by previous shift RN Patient Tobacco Use Status: Never used Tobacco Smoked in Last 30 Days: No e-Cigarette/Vaping Use: Never Used Second Hand Smoke Exposure: No Use of substances other than those prescribed or required for medical reasons: No Advance Directives: Yes Advance Directives on File: Yes Advance Directives Date on File: 01/04/23 service: No Current occupational status: disabled Physical Exam Vital Signs: Vital Signs: Last Vital Signs Temp 99.4 F 12/07/23 09:54 Pulse 65 12/07/23 12:07 Resp 18 12/07/23 12:07 BP 159/56 H 12/07/23 12:07 Pulse Ox 94 12/07/23 12:07 O2 Del Method Room Air 12/07/23 12:07 BMI result Body Mass Index 31.3 vss Appearance: Alert.? Oriented X3.? No acute distress.? Head: Normocephalic, atraumatic, no step-offs or deformities Eyes: Pupils equal, round and reactive to light.? Neck: Normal inspection.? Neck supple.? CVS: Normal heart rate and rhythm.? Pulses normal.? Respiratory: No respiratory distress.? Breath sounds faint wheezing b/l on expiration .? Abdomen: Soft and nontender.? Skin: Skin warm and dry.? Normal skin color.? Normal skin turgor.? Extremities: No lower extremity edema.? No calf ttp. 5/5 strength to bilateral upper and lower extremities Neuro: Oriented X 3.? No motor deficit.? No sensory deficit. CN 2-12 intact Course Reevaluation(s) Reevaluation #1: Patient is saturating well on room air. Got a breathing treatment by Respiratory. Flu, COVID, RSV negative. Chest x-ray without acute abnormality. Educated patient on diagnosis and treatment plan, answered all question, patient verbalizes understanding. At this time patient will be discharged home, advised to return with new or worsening symptoms. Educated on worrisome signs and symptoms and when to return. At this time I feel comfortable discharge home. Time: 12:40 Medications Administered Discontinued Medications Generic Name Dose Route Start Last Admin Trade Name Wang PRN Reason Stop Dose Admin Albuterol Sulfate 4 puff 12/07/23 10:50 12/07/23 11:20 Albuterol Sulfate 90 Mcg 8 Gm Inhaler INHALE 12/07/23 10:51 4 puff ONCE ONE Administration Medical Decision Making Medical Decision Making MDM Narrative: 68-year-old female presents with cough for the past 3 days, dry nonproductive cough. Physical exam Breath sounds faint wheezing b/l on expiration .? History and physical exam concerning for chronic lung disease versus bronchitis versus flu versus COVID versus RSV. Unlikely CHF, acute respiratory distress, PE or ACS. Plan x-ray, flu COVID/RSV. Differential Diagnosis Differential Diagnoses: The differential diagnosis associated with the presentation includes History and physical exam concerning for chronic lung disease versus bronchitis versus flu versus COVID versus RSV. Unlikely CHF, acute respiratory distress, PE or ACS. Admission/Observation Consideration of admission/observation: Escalation of care including admission/observation considered Lab Data Labs: Lab Results 12/07/23 Range/Units 10:42 Influenza Type A (PCR) NEGATIVE (Negative) Influenza Type B (PCR) NEGATIVE (Negative) RSV RNA Qual (PCR) NEGATIVE (Negative) SARS-CoV-2 RNA (RT-PCR) NEGATIVE (Negative) Critical Care Time Critical Care Time Critical Care Time: No Discharge Plan Discharge Clinical Impression: Bronchitis Patient Disposition: Home, Self-Care Instructions: Acute Bronchitis (ED) Additional Instructions: Take your medications as prescribed. If you were prescribed antibiotics today, it is important that you take your medication to their entirety, do not skip any doses, do not finish them early. Follow-up with your primary care provider this week. Return to the emergency department with new or worsening symptoms. Such as fevers, chills, chest pain, shortness of breath, nausea, vomiting, dizziness, headache, vision changes, lethargy In case of emergency call 911 Prescriptions: New doxycycline hyclate 100 mg capsule 100 mg PO BID 10 Days Qty: 20 0RF prednisone 20 mg tablet 20 mg PO DAILY 5 Days Qty: 5 0RF albuterol sulfate 90 mcg/actuation aerosol powdr breath activated 2 inh inhalation Q4-6H PRN (Reason: shortness of breath or wheezing) Qty: 1 0RF No Action atorvastatin 80 mg tablet 80 mg PO BEDTIME clopidogrel 75 mg tablet 75 mg PO DAILY aspirin 81 mg tablet,delayed release (DR/EC) 81 mg PO BEDTIME insulin glargine [Lantus Solostar U-100 Insulin] 100 unit/mL (3 mL) insulin pen 20 unit subcut BEDTIME magnesium oxide 400 mg (241.3 mg magnesium) tablet 400 mg PO DAILY sevelamer carbonate 800 mg tablet 800 mg PO TIDWM carvedilol 12.5 mg Tablet 12.5 mg PO BIDWM Qty: 60 1RF Protocol: Hold for SBP/HR < HOLD for SBP < : 90 HOLD for HR < : 60 valsartan 80 mg Tablet 80 mg PO BID Qty: 60 1RF Protocol: Hold for SBP< HOLD for SBP < : 90 amlodipine 5 mg tablet 5 mg PO DAILY melatonin 5 mg tablet 5 - 10 mg PO BEDTIME PRN (Reason: Sleep) albuterol sulfate 90 mcg/actuation HFA aerosol inhaler 2 inh inhalation Q4H PRN (Reason: shortness of breath or wheezing) sennosides [Natural Senna Laxative] 8.6 mg tablet 17.2 mg PO BEDTIME Qty: 60 3RF pantoprazole 40 mg tablet,delayed release (DR/EC) 40 mg PO DAILY Qty: 30 2RF Rx Instructions: take one tablet half an hour before breakfast (DME) lancets [OneTouch Delica Plus Lancet] 33 gauge misc See Rx Instructions .ROUTE TID Qty: 100 Rx Instructions: As directed (DME) pen needle, diabetic [Pentips] 32 gauge x 5/32 needle See Rx Instructions .ROUTE DIRECTED Qty: 1200 Rx Instructions: As directed (DME) OneTouch Ultra Test Strip See Rx Instructions .ROUTE TID Qty: 10 Rx Instructions: As directed insulin aspart U-100 [Novolog FlexPen U-100 Insulin] 100 unit/mL (3 mL) insulin pen 1 sliding scale dose subcut NEEDED PRN (Reason: bs >200) Rx Instructions: 8-12 units SLIDING SCALE Referrals: Alexys Avila MD [Primary Care Provider] - 2 days Stand Alone Forms: Work/School Release
[2023-12-07] MEDS: Albuterol Sulfate 90 MCG 8 GM INHALER 4 PUFF INHALE (11:20)
[2023-12-07 11:26] LABS: Influenza A PCR NEGATIVE (Negative); Influenza B PCR NEGATIVE (Negative); Resp Syncy Virus RNA Qual PCR NEGATIVE (Negative); SARS COV2 PCR INHOUSE NEGATIVE (Negative)
[2023-12-07 11:43] VITALS: PULSE 67; RESP 20; O2SAT 96
[2023-12-07 12:07] VITALS: BP 159/56; PULSE 65; RESP 18; O2SAT 94
--- NOTE | 2023-12-07 13:15 | PC.NURSE ---
spoke with pts daughter Adelita with use of import export clerk, plan for daughter to pickling grader pt at 1500
[2023-12-07 14:19] VITALS: BP 124/64; PULSE 62; RESP 16; O2SAT 93
== END 2023-12-07 15:16 | disposition home or self-care (01) ==
PROVIDERS: Physician Assistant; Emergency Provider Emergency Medicine; PCP Internal Medicine
DX: J40 Bronchitis, not specified as acute or chronic (principal); R05.9 Cough, unspecified; Z11.52 Encounter for screening for COVID-19; Z20.822 Contact with and (suspected) exposure to COVID-19; Z79.899 Other long term (current) drug therapy
CPT/HCPCS: 0241U; 71045; 99284

== ENCOUNTER 2023-12-15 00:13 | Emergency (ER) | payer OTHER, SELFPAY ==
--- NOTE | ~2023-12-15 | XR_ITS ---
EXAMINATION: XR ABDOMEN KUB CLINICAL INDICATION: Pain. COMPARISON: None available. TECHNIQUE: AP view of the abdomen. FINDINGS: The bowel gas pattern is normal with no evidence of ileus or obstruction. There is scattered retained stool. No unusual soft tissue calcifications are noted. Arteriovascular calcification is noted The bones are unremarkable. XR/XR KUB IMPRESSION: Nonobstructive bowel gas pattern.
[2023-12-15 00:36] VITALS: BP 144/60; BP 149/48; PULSE 60; PULSE 67; RESP 16; TEMP 36.6; O2SAT 95; O2SAT 98; BMI 31.7
[2023-12-15 00:40] VITALS: BP 149/48; PULSE 67; RESP 18; TEMP 36.6; O2SAT 98
[2023-12-15 01:11] LABS: Hematocrit 33.4 % (37.0-47.0); Hemoglobin 10.6 g/dl (12.0-16.0); Mean Corpuscular HGB Conc 31.7 g/dl (31.0-35.0); Mean Corpuscular Hemoglobin 27.7 pg (27.0-33.0); Mean Corpuscular Volume 87.2 fL (80.0-98.0); Mean Platelet Volume 9.9 fL (9.4-12.3); Platelet Count 134 X10*3/uL (160-400); Red Blood Count 3.83 X10*6/uL (4.20-5.50); Red Cell Distribution Width 13.6 % (11.0-16.0); White Blood Count 10.1 X10*3/uL (4.8-10.8)
[2023-12-15 01:25] LABS: Alanine Aminotransferase 10 U/L (0-31); Albumin Level 2.8 g/dL (3.5-5.0); Alkaline Phosphatase 170 U/L (39-117); Anion Gap 16 (12-20); Aspartate Amino Transferase 14 U/L (5-31); Bilirubin Total 0.4 mg/dL (0.0-1.0); Blood Urea Nitrogen 20 mg/dL (9-16); Calcium 7.4 mg/dL (8.4-10.2); Carbon Dioxide 32 mmol/L (22-29); Chloride 96 mmol/L (96-108); Creatinine Clr Calc Pharmacy 13.6; Estimated Glomerular Filt Rate 15; Glucose Random 96 mg/dL (60-115); Potassium 4.5 mmol/L (3.3-5.1); Sodium 139 mmol/L (135-145); Total Protein 6.4 g/dL (6.5-8.0)
--- NOTE | 2023-12-15 01:56 | ED.GENADULT ---
HPI - General Adult General Chief complaint: General Medical Stated complaint: right leg pain Time Seen by Provider: 12/15/23 01:17 Source: patient Mode of arrival: ambulatory Limitations: no limitations History of Present Illness HPI narrative: patient comes to the emergency room complaining of hemorrhoid pain and constipation. Patient states that she has been pushing to move her bowels or hard and now her anus hurts, Much worse when she wipes. Patient denies abdominal pain. denies chest pain or shortness of breath. Related Data Home Medications Medication Instructions Recorded Confirmed aspirin 81 mg tablet,delayed 81 mg PO BEDTIME 06/20/21 12/03/23 release atorvastatin 80 mg tablet 80 mg PO BEDTIME 06/20/21 12/03/23 clopidogrel 75 mg tablet 75 mg PO DAILY 06/20/21 12/03/23 insulin glargine 100 unit/mL (3 20 unit subcut BEDTIME 03/25/22 12/03/23 mL) subcutaneous pen (Lantus Solostar U-100 Insulin) magnesium oxide 400 mg (241.3 mg 400 mg PO DAILY 04/20/23 12/03/23 magnesium) tablet blood sugar diagnostic (LonoCloudTouch #10 ea 05/25/23 Ultra Test strips) insulin aspart U-100 100 unit/mL 1 sliding scale dose subcut 05/25/23 12/03/23 (3 mL) subcutaneous pen (Novolog NEEDED PRN bs >200 FlexPen U-100 Insulin aspart) lancets 33 gauge (OneTouch Delica #100 ea 05/25/23 Plus Lancet) pen needle, diabetic 32 gauge x #1,200 ea 05/25/2332 (Pentips) albuterol sulfate 90 mcg/actuation 2 inh inhalation Q4H PRN shortness 09/21/23 12/03/23 aerosol inhaler of breath or wheezing melatonin 5 mg tablet 5 - 10 mg PO BEDTIME PRN Sleep 09/21/23 12/03/23 sevelamer carbonate 800 mg tablet 800 mg PO TIDWM 10/08/23 12/03/23 amlodipine 5 mg tablet 5 mg PO DAILY 11/19/23 12/03/23 Previous Rx's Medication Instructions Recorded carvedilol 12.5 mg tablet 12.5 mg PO BIDWM #60 tabs 10/11/23 valsartan 80 mg tablet 80 mg PO BID #60 tabs 10/11/23 pantoprazole 40 mg tablet,delayed 40 mg PO DAILY #30 tabs 11/22/23 release sennosides 8.6 mg tablet (Natural 17.2 mg (2 x 8.6 mg) PO BEDTIME 11/22/23 Senna Laxative) constipation #60 tabs albuterol sulfate 90 mcg/actuation 2 inh inhalation Q4-6H PRN 12/07/23 breath activated powder inhaler shortness of breath or wheezing #1 ea doxycycline hyclate 100 mg capsule 100 mg PO BID 10 days #20 caps 12/07/23 prednisone 20 mg tablet 20 mg PO DAILY 5 days #5 tabs 12/07/23 hydrocortisone 1 % topical cream 1 appl topical TID PRN itching 12/15/23 (Preparation H Hydrocortisone) #28.35 grams lidocaine 5 % topical ointment 1 appl topical QID PRN pain #50 12/15/23 grams Allergies Allergy/AdvReac Type Severity Reaction Status Date / Time latex [LATEX] Allergy Intermediate ITCHY Verified 11/22/23 09:30 Review of Systems Review of Systems: Constitutional : No Weight loss, No Fever, No Chills, No Night Sweats, No Fatigue, No Malaise ENT/Mouth : No Hearing loss, No Ear Pain, No Nasal Congestion, No Sinus Pain, No Hoarseness, No sore throat, No Rhinorrhea, No Swallowing Difficulty Eyes: No Eye Pain, No Swelling, No Redness, No Foreign Body, No Discharge, No Vision Changes Cardiovascular : No Chest Pain, No SOB, No Dyspnea on Exertion, No Orthopnea, No Edema, No Palpitations Respiratory : No Cough, No Sputum, No Wheezing, No Smoke Exposure, No Dyspnea Gastrointestinal : No Nausea, No Vomiting, No Diarrhea, No abdominal pain, complaining of constipation and anal pain from hemorrhoids Genitourinary : no irregular bleeding, No Dysuria, No Urinary Frequency, No Hematuria, No Urinary Incontinence, No Urgency, No Flank Pain, No Urinary Flow Changes, No Hesitancy Musculoskeletal : No joint pain, No Myalgias, No Joint Swelling Skin : No Skin Lesions, No rash Neuro : No Weakness, No Numbness, No Paresthesias, No Loss of Consciousness, No Dizziness, No Headache Psych : No Anxiety/Panic, No Depression, No SI/HI/AH/VH, No Social Issues, Heme/Lymph: No Bruising, No Bleeding,No Lymphadenopathy Endocrine : No Polyuria, No Polydipsia, No Temperature Intolerance [facility] Past Medical History Medical History Congestive heart failure Hyperglycemia due to diabetes mellitus Anemia End stage renal disease Heart failure with reduced ejection fraction Dialysis patient, noncompliant Chronic kidney disease Thrombocytopenia CKD (chronic kidney disease) stage 4, GFR 15-29 ml/min Constipation Ischemic necrosis of finger Normocytic anemia Urinary tract infection due to ESBL Klebsiella Chronic heart failure with preserved ejection fraction (HFpEF) Hypomagnesemia Acute on chronic renal failure Essential hypertension HLD (hyperlipidemia) Non-ST elevated myocardial infarction Diabetes mellitus Nonischemic cardiomyopathy Irritable bowel syndrome with diarrhea Gastroparesis GERD (gastroesophageal reflux disease) Surgical History Status post amputation of finger H/O surgical amputation of finger History of laparoscopic cholecystectomy History of intestinal surgery Hx of eye surgery History of esophagogastroduodenoscopy (EGD) Hx of colonoscopy H/O: hysterectomy Family History Family History Father Lung cancer Mother Diabetes HTN (hypertension) Heart disease Sister Diabetes Heart disease Brother Heart disease Son Diabetes Daughter Diabetes Social History Social History Household Members: Children Household Members Other:: SNF Housing: House Do you presently have visiting nurse or other home services: No Unable to assess alcohol history related to: Unknown Alcohol intake: never Comment: report called by previous shift RN Patient Tobacco Use Status: Never used Tobacco Smoked in Last 30 Days: No e-Cigarette/Vaping Use: Never Used Second Hand Smoke Exposure: No Use of substances other than those prescribed or required for medical reasons: No Advance Directives: Yes Advance Directives on File: Yes Advance Directives Date on File: 01/04/23 service: No Current occupational status: disabled Physical Exam ED Vital Signs: Vital Signs - 24 hr 12/15/23 00:36 12/15/23 00:40 Temperature 97.9 F 97.9 F Pulse Rate 67 67 Respiratory Rate 16 18 Blood Pressure 149/48 H 149/48 H Pulse Oximetry 98 98 Oxygen Delivery Method Room Air Room Air BMI result Body Mass Index 31.7 Const Other: Appearance: Alert. Oriented X3. No acute distress. Eyes: Pupils equal, round and reactive to light. ENT: Pharynx normal. Neck: Normal inspection. Neck supple. No lymph nodes noted. No crepitus CVS: Normal heart rate and rhythm. Pulses normal. Normal S1 and S2 Respiratory: No respiratory distress. Breath sounds normal. No Wheezing. No rales Abdomen: Soft and nontender. No rigidity. No distention. rectal exam: no thrombosed hemorrhoid, tender to palpation, patient likely has fissures. Skin: Skin warm and dry. Normal skin color. Normal skin turgor. Extremities: No lower extremity edema. No Lacerations. No Rash Neuro: Oriented X 3. No motor deficit. No sensory deficit. Moving all extremities. No slurred speech. CN 2 through 12 grossly intact Psych: calm, cooperative, normal affect Medications Administered Discontinued Medications Generic Name Dose Route Start Last Admin Trade Name Freq PRN Reason Stop Dose Admin Lidocaine 1 appl 12/15/23 01:50 12/15/23 02:01 Lidocaine 5 % Ointment 35 Gm TOPICAL 12/15/23 01:51 Not Given ONCE ONE Protocol Lidocaine HCl 1 appl 12/15/23 01:57 12/15/23 02:32 Lidocaine 4 % Cream Kit TOPICAL 12/15/23 01:58 1 appl ONCE ONE Administration Protocol Mineral Oil 133 ml 12/15/23 01:53 12/15/23 02:31 Mineral Oil Enema 133 Ml Enema WA 12/15/23 01:54 133 ml ONCE ONE Administration Medical Decision Making Medical Decision Making [facility] Narrative: -Patient's hematology and chemistry are at baseline - my interpretation of KUB, no obstructive air pattern. - a dose of 4% lidocaine was applied to the anal area. Once numb, patient received soap enema. - Patient ready for discharge. Differential Diagnosis Differential Diagnoses: The differential diagnosis associated with the presentation includes ( Anal fissure, internal hemorrhoid, external hemorrhoid, constipation) Lab Data [facility] Lab Attestation statement: I reviewed the patient's lab results. 12/15/23 01:06 12/15/23 01:06 Labs: Lab Results 12/15/23 Range/Units 01:06 WBC 10.1 (4.8-10.8) X10*3/uL RBC 3.83 L (4.20-5.50) X10*6/uL Hgb 10.6 L (12.0-16.0) g/dl Hct 33.4 L (37.0-47.0) % MCV 87.2 (80.0-98.0) fL MCH 27.7 (27.0-33.0) pg MCHC 31.7 (31.0-35.0) g/dl RDW 13.6 (11.0-16.0) % Plt Count 134 L (160-400) X10*3/uL MPV 9.9 (9.4-12.3) fL Absolute Nucleated RBC 0.000 (0.0-0.012) X10*3/uL Nucleated RBC % (auto) 0.0 (0.0-0.2) /100WBC Sodium 139 (135-145) mmol/L Potassium 4.5 (3.3-5.1) mmol/L Chloride 96 (96-108) mmol/L Carbon Dioxide 32 H (22-29) mmol/L Anion Gap 16 (12-20) BUN 20 H (9-16) mg/dL Creatinine 3.16 H (0.5-1.4) mg/dL Estim Creat Clear Calc 13.6 Estimated GFR 15 Random Glucose 96 (60-115) mg/dL Calcium 7.4 L D (8.4-10.2) mg/dL Total Bilirubin 0.4 (0.0-1.0) mg/dL AST 14 (5-31) U/L ALT 10 (0-31) U/L Alkaline Phosphatase 170 H (39-117) U/L Total Protein 6.4 L (6.5-8.0) g/dL Albumin 2.8 L (3.5-5.0) g/dL Independent Interpretation I performed an independent interpretation of an: Plain X-Ray Interpretation: FINDINGS: The bowel gas pattern is normal with no evidence of ileus or obstruction. There is scattered retained stool. No unusual soft tissue calcifications are noted. Arteriovascular calcification is noted The bones are unremarkable. XR/XR KUB IMPRESSION: Nonobstructive bowel gas pattern. Discharge Plan Discharge Clinical Impression: Constipation, Hemorrhoid Patient Disposition: Home, Self-Care Instructions: Constipation (ED), Hemorrhoids (ED) Additional Instructions: Please follow-up with your primary care physician tomorrow. If you have any worsening or new symptoms, please return to the emergency room or call 911 Prescriptions: New lidocaine 5 % ointment 1 appl topical QID PRN (Reason: pain) Qty: 50 0RF Rx Instructions: applied to anal area 15 minutes prior to attempted bowel movement hydrocortisone [Preparation H Hydrocortisone] 1 % cream 1 appl topical TID PRN (Reason: itching) Qty: 28.35 0RF No Action atorvastatin 80 mg tablet 80 mg PO BEDTIME clopidogrel 75 mg tablet 75 mg PO DAILY aspirin 81 mg tablet,delayed release (DR/EC) 81 mg PO BEDTIME insulin glargine [Lantus Solostar U-100 Insulin] 100 unit/mL (3 mL) insulin pen 20 unit subcut BEDTIME magnesium oxide 400 mg (241.3 mg magnesium) tablet 400 mg PO DAILY sevelamer carbonate 800 mg tablet 800 mg PO TIDWM carvedilol 12.5 mg Tablet 12.5 mg PO BIDWM Qty: 60 1RF Protocol: Hold for SBP/HR < HOLD for SBP < : 90 HOLD for HR < : 60 valsartan 80 mg Tablet 80 mg PO BID Qty: 60 1RF Protocol: Hold for SBP< HOLD for SBP < : 90 amlodipine 5 mg tablet 5 mg PO DAILY melatonin 5 mg tablet 5 - 10 mg PO BEDTIME PRN (Reason: Sleep) albuterol sulfate 90 mcg/actuation HFA aerosol inhaler 2 inh inhalation Q4H PRN (Reason: shortness of breath or wheezing) doxycycline hyclate 100 mg capsule 100 mg PO BID 10 Days Qty: 20 0RF prednisone 20 mg tablet 20 mg PO DAILY 5 Days Qty: 5 0RF albuterol sulfate 90 mcg/actuation aerosol powdr breath activated 2 inh inhalation Q4-6H PRN (Reason: shortness of breath or wheezing) Qty: 1 0RF sennosides [Natural Senna Laxative] 8.6 mg tablet 17.2 mg PO BEDTIME Qty: 60 3RF pantoprazole 40 mg tablet,delayed release (DR/EC) 40 mg PO DAILY Qty: 30 2RF Rx Instructions: take one tablet half an hour before breakfast (DME) lancets [OneTouch Delica Plus Lancet] 33 gauge misc See Rx Instructions .ROUTE TID Qty: 100 Rx Instructions: As directed (DME) pen needle, diabetic [Pentips] 32 gauge x 5/32 needle See Rx Instructions .ROUTE DIRECTED Qty: 1200 Rx Instructions: As directed (DME) OneTouch Ultra Test Strip See Rx Instructions .ROUTE TID Qty: 10 Rx Instructions: As directed insulin aspart U-100 [Novolog FlexPen U-100 Insulin] 100 unit/mL (3 mL) insulin pen 1 sliding scale dose subcut NEEDED PRN (Reason: bs >200) Rx Instructions: 8-12 units SLIDING SCALE
[2023-12-15] MEDS: Mineral OiL enema 133 ML ENEMA PR (02:31)
[2023-12-15] MEDS: Lidocaine 4 % Cream KIT 1 APPL TOPICAL (02:32)
[2023-12-15 03:19] VITALS: BP 140/73; PULSE 67; RESP 14; TEMP 37.1; O2SAT 98
--- NOTE | 2023-12-15 03:59 | MHC.EDTECH ---
CALL OUT TO [facility] AT [phone] TO BOOK TRANSPORT FOR PT BACK HOME, ESTIMATED ETA GIVEN WAS 1HR & HALF
== END 2023-12-15 05:28 | disposition home or self-care (01) ==
PROVIDERS: Emergency Provider Emergency Medicine; PCP Internal Medicine
DX: K59.00 Constipation, unspecified (principal); K64.9 Unspecified hemorrhoids; I13.2 Hypertensive heart and chronic kidney disease with heart failure and with stage 5 chronic kidney disease, or end stage renal disease; E11.22 Type 2 diabetes mellitus with diabetic chronic kidney disease; N18.6 End stage renal disease; I50.32 Chronic diastolic (congestive) heart failure; Z99.2 Dependence on renal dialysis
CPT/HCPCS: 36415; 74018; 80053; 85027; 99284

== ENCOUNTER 2024-01-01 15:40 | Inpatient (IN) | payer OTHER, SELFPAY ==
--- NOTE | ~2024-01-01 | XR_ITS ---
EXAMINATION: XR FINGER, RIGHT CLINICAL INFORMATION: Wound third finger COMPARISON: Right hand CT from 2017 and finger x-ray 2020 TECHNIQUE: Three views of the right third finger. FINDINGS: There has been interval amputation of the distal phalanx of the third finger. There is amputation of the distal phalanx and part of the middle phalanx unchanged. No fracture or dislocation. There is irregular appearance of the bone at the amputation site with lucency and areas of cortical thinning and periosteal reaction along the proximal phalanx questionable for osteomyelitis. There is diffuse overlying soft tissue swelling. No abnormal air collection or soft tissue foreign body. Mild arthritis at the IP joints. Atherosclerotic disease. XR/XR finger RT min 2V IMPRESSION: Soft tissue swelling and question osteomyelitis of the third finger.
--- NOTE | ~2024-01-01 | XR_ITS ---
EXAMINATION: XR FOOT, RIGHT CLINICAL INFORMATION: Second toe wound COMPARISON: None available. TECHNIQUE: AP, lateral, and oblique views of the right foot. FINDINGS: There has been amputation of the distal phalanx of the great toe. No fracture, dislocation or x-ray evidence of osteomyelitis. No abnormal soft tissue air or foreign body. Contractures of the toes. Severe atherosclerotic disease. Large calcaneal spurs. XR/XR foot RT min 3V IMPRESSION: No x-ray evidence of osteomyelitis.
[2024-01-01 15:42] VITALS: BP 114/59; PULSE 69; RESP 15; TEMP 36.9; O2SAT 94; BMI 33.0
--- NOTE | 2024-01-01 15:44 | ED_ITS ---
HPI - General Adult General Chief complaint: Wound/Laceration Stated complaint: dialysis patient right foot pain Time Seen by Provider: 01/01/24 23:04 Source: patient Mode of arrival: ambulatory Limitations: no limitations History of Present Illness HPI narrative: 68-year-old female history of end-stage renal disease on dialysis, COPD, diabetes, CVA, left [id number] amputation, cerebral infarct presenting to the emergency department stating that her wounds have been getting worse, patient reports that she has had a wound to her right 2nd toe for the past 2 weeks and a wound to the right 3rd finger for the past month. These wounds seem to be worsening not improving. She reports at times she gets bleeding from the right 3rd finger. No associated trauma. Denies fevers, chills, numbness, tingling headache, vision changes, dizziness, nausea, vomiting, abdominal pain. PCP has seen patient for her foot however not yet her finger. Related Data Home Medications Medication Instructions Recorded Confirmed aspirin 81 mg tablet,delayed 81 mg PO BEDTIME 06/20/21 12/03/23 release atorvastatin 80 mg tablet 80 mg PO BEDTIME 06/20/21 12/03/23 clopidogrel 75 mg tablet 75 mg PO DAILY 06/20/21 12/03/23 insulin glargine 100 unit/mL (3 20 unit subcut BEDTIME 03/25/22 12/03/23 mL) subcutaneous pen (Lantus Solostar U-100 Insulin) magnesium oxide 400 mg (241.3 mg 400 mg PO DAILY 04/20/23 12/03/23 magnesium) tablet blood sugar diagnostic (OneTouch #10 ea 05/25/23 Ultra Test strips) insulin aspart U-100 100 unit/mL 1 sliding scale dose subcut 05/25/23 12/03/23 (3 mL) subcutaneous pen (Novolog NEEDED PRN bs >200 FlexPen U-100 Insulin aspart) lancets 33 gauge (OneTouch Delica #100 ea 05/25/23 Plus Lancet) pen needle, diabetic 32 gauge x #1,200 ea 05/25/23 (Pentips) albuterol sulfate 90 mcg/actuation 2 inh inhalation Q4H PRN shortness 09/21/23 12/03/23 aerosol inhaler of breath or wheezing melatonin 5 mg tablet 5 - 10 mg PO BEDTIME PRN Sleep 09/21/23 12/03/23 sevelamer carbonate 800 mg tablet 800 mg PO TIDWM 10/08/23 12/03/23 amlodipine 5 mg tablet 5 mg PO DAILY 11/19/23 12/03/23 Previous Rx's Medication Instructions Recorded carvedilol 12.5 mg tablet 12.5 mg PO BIDWM #60 tabs 10/11/23 valsartan 80 mg tablet 80 mg PO BID #60 tabs 10/11/23 pantoprazole 40 mg tablet,delayed 40 mg PO DAILY #30 tabs 11/22/23 release sennosides 8.6 mg tablet (Natural 17.2 mg (2 x 8.6 mg) PO BEDTIME 11/22/23 Senna Laxative) constipation #60 tabs albuterol sulfate 90 mcg/actuation 2 inh inhalation Q4-6H PRN 12/07/23 breath activated powder inhaler shortness of breath or wheezing #1 ea doxycycline hyclate 100 mg capsule 100 mg PO BID 10 days #20 caps 12/07/23 prednisone 20 mg tablet 20 mg PO DAILY 5 days #5 tabs 12/07/23 hydrocortisone 1 % topical cream 1 appl topical TID PRN itching 12/15/23 (Preparation H Hydrocortisone) #28.35 grams lidocaine 5 % topical ointment 1 appl topical QID PRN pain #50 12/15/23 grams Allergies Allergy/AdvReac Type Severity Reaction Status Date / Time latex [LATEX] Allergy Intermediate ITCHY Verified 11/22/23 09:30 Review of Systems 2 Review of Systems: Yes all other systems are reviewed and are negative PMFSH Past Medical History Attestation statement: The following information was validated with the patient. Source: old records reviewed and nursing notes reviewed Medical History Congestive heart failure Hyperglycemia due to diabetes mellitus Anemia End stage renal disease Heart failure with reduced ejection fraction Dialysis patient, noncompliant Chronic kidney disease Thrombocytopenia CKD (chronic kidney disease) stage 4, GFR 15-29 ml/min Constipation Ischemic necrosis of finger Normocytic anemia Urinary tract infection due to ESBL Klebsiella Chronic heart failure with preserved ejection fraction (HFpEF) Hypomagnesemia Acute on chronic renal failure Essential hypertension HLD (hyperlipidemia) Non-ST elevated myocardial infarction Diabetes mellitus Nonischemic cardiomyopathy Irritable bowel syndrome with diarrhea Gastroparesis GERD (gastroesophageal reflux disease) Surgical History Status post amputation of finger H/O surgical amputation of finger History of laparoscopic cholecystectomy History of intestinal surgery Hx of eye surgery History of esophagogastroduodenoscopy (EGD) Hx of colonoscopy H/O: hysterectomy Family History Family History Father Lung cancer Mother Diabetes HTN (hypertension) Heart disease Sister Diabetes Heart disease Brother Heart disease Son Diabetes Daughter Diabetes Social History Social History Household Members: Children Household Members Other:: SNF Housing: House Do you presently have visiting nurse or other home services: No Unable to assess alcohol history related to: Unknown Alcohol intake: never Comment: report called by previous shift RN Patient Tobacco Use Status: Never used Tobacco e-Cigarette/Vaping Use: Never Used Second Hand Smoke Exposure: No Advance Directives: Yes Advance Directives on File: Yes Advance Directives Date on File: 01/04/23 service: No Current occupational status: disabled Physical Exam ED Vital Signs: Vital Signs - 24 hr 01/01/24 15:42 01/01/24 23:40 Temperature 98.5 F 98.5 F Pulse Rate 69 72 Respiratory Rate 15 20 Blood Pressure 114/59 L 162/45 H Pulse Oximetry 94 95 Oxygen Delivery Method Room Air Room Air BMI result Body Mass Index 33.0 vss Appearance: Alert.? Oriented X3.? No acute distress.? Head: Normocephalic, atraumatic, no step-offs or deformities Eyes: Pupils equal, round and reactive to light.? Neck: Normal inspection.? Neck supple.? CVS: Normal heart rate and rhythm.? Pulses normal.? Respiratory: No respiratory distress.? Breath sounds normal.? Abdomen: Soft and nontender.? Skin: Skin warm and dry.? Normal skin color.? Normal skin turgor.? Extremities: No lower extremity edema.? No calf ttp. 5/5 strength to bilateral upper and lower extremities + wound to right distal aspect of third digit and to r 2nd toe w/ what appears to be necrotic tissue. Decreased sensation to b/l lower extremity toes and fingers to UE ( images in chart) 2+ DP,AT,PT pulses equal and b/l. Normal sensation distally. Neuro: Oriented X 3.? No motor deficit.? No sensory deficit. CN 2-12 intact Course Course Course Narrative: This is a rapid medical exam: Additional HPI, ROS, PE not included below will be deferred to primary provider. Patient is a 68-year-old Tristanian speaking female with history of ESRD on dialysis, CHF, DM, CVA, dysphagia, metabolic encephalopathy presenting to the ED with wounds to right 2nd toe for 2 weeks and wound to right 3rd finger for a month. States the finger bleeds at home. Has seen PCP about her foot but not her finger. Dialysis today. Plan: labs including cultures and lactic, x-rays Reevaluation(s) Reevaluation #1: CBC no acute findings requiring intervention. Elevated ESR, 34. Chemistry no acute findings requiring intervention, patient does have elevated BUN and creatinine at baseline due to end-stage renal disease she is on hemodialysis Monday, and Monday last session today. CRP not elevated. CT of right finger soft tissue swelling and question osteomyelitis in the right 3rd digit --> linda weir ordered. X-ray of right foot normal. Due to patient history and physical exam will discuss this case with hospitalist for possible admission IV antibiotics and further evaluation by specialist. Time: 23:20 Reevaluation #2: Discussed this case with Dr. Jessenia bishop who recommends admission. Consult tomorrow. Time: 00:23 Medical Decision Making Medical Decision Making [facility] Narrative: 1105 68-year-old female presents with concerns of right 2nd toe wound and right 3rd finger wound, both of which have been present for awhile however seemed to not being proving/worsening. Physical exam + wound to right distal aspect of third digit and to r 2nd toe. ( images in chart) 2+ DP,AT,PT pulses equal and b/l. Normal sensation distally. History and physical exam concerning for chronic wounds that may be worsening w/ a/c gangrene. Will rule out osteomyelitis. No signs of abscess or purulence. Unlikely neurovascular compromise, threat to Rousseau, fracture, dislocation. No signs of sepsis. Plan at this time labs, imaging. Differential Diagnosis Differential Diagnoses: The differential diagnosis associated with the presentation includes History and physical exam concerning for chronic wounds that may be worsening w/ a/c gangrene. Will rule out osteomyelitis. No signs of abscess or purulence. Unlikely neurovascular compromise, threat to Rousseau, fracture, dislocation. No signs of sepsis. Admission/Observation Consideration of admission/observation: Escalation of care including admission/observation considered Possible Lab Data MDM Lab Attestation statement: I reviewed the patient's lab results. 01/01/24 16:06 01/01/24 16:08 Labs: Lab Results 01/01/24 01/01/24 01/01/24 Range/Units 16:05 16:06 16:08 WBC 7.2 (4.8-10.8) X10*3/uL RBC 3.87 L (4.20-5.50) X10*6/uL Hgb 10.5 L (12.0-16.0) g/dl Hct 33.5 L (37.0-47.0) % MCV 86.6 (80.0-98.0) fL MCH 27.1 (27.0-33.0) pg MCHC 31.3 (31.0-35.0) g/dl RDW 13.9 (11.0-16.0) % Plt Count 190 D (160-400) X10*3/uL MPV 11.1 (9.4-12.3) fL Immature Gran % (Auto) 0.7 H (0.0-0.4) % Neut % (Auto) 66.8 (45-73) % Lymph % (Auto) 19.7 L (20-40) % Rowan % (Auto) 8.9 (2-11) % Eos % (Auto) 3.2 (0-4) % Baso % (Auto) 0.7 (0-2) % Lymph # (Auto) 1.4 (1.2-4.9) X10*3/uL [place]an # (Auto) 0.6 (0.1-1.2) X10*3/uL Eos # (Auto) 0.2 (0.0-0.4) X10*3/uL Baso # (Auto) 0.1 (0.0-0.2) X10*3/uL Abs Immat Gran (auto) 0.05 H (0.00-0.03) X10*3/uL Absolute Neuts (auto) 4.8 (2.0-8.3) x10*3/uL Absolute Nucleated RBC 0.000 (0.0-0.012) X10*3/uL Nucleated RBC % (auto) 0.0 (0.0-0.2) /100WBC ESR 34 H (0-20) MM/HR Sodium 142 (135-145) mmol/L Potassium 4.0 (3.3-5.1) mmol/L Chloride 99 (96-108) mmol/L Carbon Dioxide 36 H (22-29) mmol/L Anion Gap 11 L (12-20) BUN 15 (9-16) mg/dL Creatinine 1.71 H (0.5-1.4) mg/dL Estim Creat Clear Calc 25.7 Estimated GFR 30 Random Glucose 202 H (60-115) mg/dL Lactic Acid 1.7 (0.5-2.0) mmol/L Calcium 8.2 L D (8.4-10.2) mg/dL Total Bilirubin 0.3 (0.0-1.0) mg/dL AST 16 (5-31) U/L ALT 16 (0-31) U/L Alkaline Phosphatase 198 H (39-117) U/L C-Reactive Protein < 0.10 (< or = 0.50) mg/dL Total Protein 6.7 (6.5-8.0) g/dL Albumin 2.9 L (3.5-5.0) g/dL Independent Interpretation I performed an independent interpretation of an: Plain X-Ray Radiology Impression Discussion of test interpretation with radiology: I have reviewed the radiologist's reading. Critical Care Time Critical Care Time Critical Care Time: No Discharge Plan Discharge Clinical Impression: Wound, open, hand with or without fingers with complication, Open wnd toe- complicated Patient Disposition: Still a Patient Prescriptions: No Action atorvastatin 80 mg tablet 80 mg PO BEDTIME clopidogrel 75 mg tablet 75 mg PO DAILY aspirin 81 mg tablet,delayed release (DR/EC) 81 mg PO BEDTIME insulin glargine [Lantus Solostar U-100 Insulin] 100 unit/mL (3 mL) insulin pen 20 unit subcut BEDTIME magnesium oxide 400 mg (241.3 mg magnesium) tablet 400 mg PO DAILY sevelamer carbonate 800 mg tablet 800 mg PO TIDWM carvedilol 12.5 mg Tablet 12.5 mg PO BIDWM Qty: 60 1RF Protocol: Hold for SBP/HR < HOLD for SBP < : 90 HOLD for HR < : 60 valsartan 80 mg Tablet 80 mg PO BID Qty: 60 1RF Protocol: Hold for SBP< HOLD for SBP < : 90 amlodipine 5 mg tablet 5 mg PO DAILY lidocaine 5 % ointment 1 appl topical QID PRN (Reason: pain) Qty: 50 0RF Rx Instructions: applied to anal area 15 minutes prior to attempted bowel movement hydrocortisone [Preparation H Hydrocortisone] 1 % cream 1 appl topical TID PRN (Reason: itching) Qty: 28.35 0RF melatonin 5 mg tablet 5 - 10 mg PO BEDTIME PRN (Reason: Sleep) albuterol sulfate 90 mcg/actuation HFA aerosol inhaler 2 inh inhalation Q4H PRN (Reason: shortness of breath or wheezing) doxycycline hyclate 100 mg capsule 100 mg PO BID 10 Days Qty: 20 0RF prednisone 20 mg tablet 20 mg PO DAILY 5 Days Qty: 5 0RF albuterol sulfate 90 mcg/actuation aerosol powdr breath activated 2 inh inhalation Q4-6H PRN (Reason: shortness of breath or wheezing) Qty: 1 0RF sennosides [Natural Senna Laxative] 8.6 mg tablet 17.2 mg PO BEDTIME Qty: 60 3RF pantoprazole 40 mg tablet,delayed release (DR/EC) 40 mg PO DAILY Qty: 30 2RF Rx Instructions: take one tablet half an hour before breakfast (DME) lancets [OneTouch Delica Plus Lancet] 33 gauge misc See Rx Instructions .ROUTE TID Qty: 100 Rx Instructions: As directed (DME) pen needle, diabetic [Pentips] 32 gauge x 5/32 needle See Rx Instructions .ROUTE DIRECTED Qty: 1200 Rx Instructions: As directed (DME) OneTouch Ultra Test Strip See Rx Instructions .ROUTE TID Qty: 10 Rx Instructions: As directed insulin aspart U-100 [Novolog FlexPen U-100 Insulin] 100 unit/mL (3 mL) insulin pen 1 sliding scale dose subcut NEEDED PRN (Reason: bs >200) Rx Instructions: 8-12 units SLIDING SCALE
[2024-01-01 16:14] LABS: MANUAL DIFF FLAG NO
[2024-01-01 16:16] LABS: Basophils Absolute Auto 0.1 X10*3/uL (0.0-0.2); Basophils Percent Auto 0.7 % (0-2); Eosinophils Absolute Auto 0.2 X10*3/uL (0.0-0.4); Eosinophils Percent Auto 3.2 % (0-4); Hematocrit 33.5 % (37.0-47.0); Hemoglobin 10.5 g/dl (12.0-16.0); Imm Gran Abs Auto 0.05 X10*3/uL (0.00-0.03); Imm Gran Pct Auto 0.7 % (0.0-0.4); Lymphocytes Absolute Auto 1.4 X10*3/uL (1.2-4.9); Lymphocytes Percent Auto 19.7 % (20-40); Mean Corpuscular HGB Conc 31.3 g/dl (31.0-35.0); Mean Corpuscular Hemoglobin 27.1 pg (27.0-33.0); Mean Corpuscular Volume 86.6 fL (80.0-98.0); Mean Platelet Volume 11.1 fL (9.4-12.3); Monocytes Absolute Auto 0.6 X10*3/uL (0.1-1.2); Monocytes Percent Auto 8.9 % (2-11); Neutrophils Absolute Auto 4.8 x10*3/uL (2.0-8.3); Neutrophils Percent Auto 66.8 % (45-73); Platelet Count 190 X10*3/uL (160-400); Red Blood Count 3.87 X10*6/uL (4.20-5.50); Red Cell Distribution Width 13.9 % (11.0-16.0); White Blood Count 7.2 X10*3/uL (4.8-10.8)
[2024-01-01 16:24] LABS: Lactic Acid 1.7 mmol/L (0.5-2.0)
[2024-01-01 16:29] LABS: Alanine Aminotransferase 16 U/L (0-31); Albumin Level 2.9 g/dL (3.5-5.0); Alkaline Phosphatase 198 U/L (39-117); Anion Gap 11 (12-20); Aspartate Amino Transferase 16 U/L (5-31); Bilirubin Total 0.3 mg/dL (0.0-1.0); Blood Urea Nitrogen 15 mg/dL (9-16); C Reactive Protein < 0.10 mg/dL (< or = 0.50); Calcium 8.2 mg/dL (8.4-10.2); Carbon Dioxide 36 mmol/L (22-29); Chloride 99 mmol/L (96-108); Creatinine Clr Calc Pharmacy 25.7; Estimated Glomerular Filt Rate 30; Glucose Random 202 mg/dL (60-115); Sodium 142 mmol/L (135-145); Total Protein 6.7 g/dL (6.5-8.0)
[2024-01-01 17:06] LABS: Erythrocyte Sedimentation Rate 34 MM/HR (0-20)
[2024-01-01 23:40] VITALS: BP 162/45; PULSE 72; RESP 20; TEMP 36.9; O2SAT 95
[2024-01-02 01:25] VITALS: BP 156/46; PULSE 69; RESP 16; TEMP 36.9; O2SAT 96
[2024-01-02] MEDS: Piperacillin Sodium/Tazobactam 3.375 GM in 0.9 % Sodium Chloride 50 ML IV (01:49)
[2024-01-02] MEDS: vancomycin HCL 1,000 MG, vancomycin HCL 750 MG in 0.9 % Sodium Chloride 500 ML 267.5 MG IV (02:21)
[2024-01-02 03:31] VITALS: BP 132/89; PULSE 70; RESP 20; TEMP 37.1; O2SAT 96
[2024-01-02 06:04] VITALS: BP 140/71; PULSE 70; RESP 20; O2SAT 95
[2024-01-02 06:28] LABS: MANUAL DIFF FLAG NO
--- NOTE | 2024-01-02 06:36 | P.HPHOSP_ITS ---
History of Present Illness Date of Service: 01/02/24 Attending physician on admission: Agnes Messer Chief Complaint: Right middle finger ulcer Debbie Guerra is a 68 years old woman with past medical history significant for end-stage renal disease on hemodialysis (M,W,F), HFrEF, type 2 diabetes mellitus on insulin, GERD essential hypertension presents to the emergency department complaining of right middle finger (prior amputation of distal phalanx) and right 2nd finger/toes tips ulcer that she had noted over the last month. 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 She denied any headache, dizziness, fevers chills. She denies any acute cardiopulmonary, gastrointestinal or genitourinary symptoms. She still makes urine. Last hemoglobin cessation was yesterday and was completed without complications. She denied tobacco smoking, alcohol abuse or illicit drug use. In the ED, patient was found to have stable vital signs. Blood workup showed no leukocytosis or bandemia. Creatinine is 1.71. CRP is < 0.10. Right foot right middle finger x-ray showed soft tissue swelling with pressure stat of the 3rd finger. ED tx: Vancomycin 1750 mg IV, Zosyn 3.375 mg IV Review of Systems 2 Review of Systems: All 12 systems were reviewed and normal except as noted in HPI. [facility] Medical History Congestive heart failure Hyperglycemia due to diabetes mellitus Anemia End stage renal disease Heart failure with reduced ejection fraction Dialysis patient, noncompliant Chronic kidney disease Thrombocytopenia CKD (chronic kidney disease) stage 4, GFR 15-29 ml/min Constipation Ischemic necrosis of finger Normocytic anemia Urinary tract infection due to ESBL Klebsiella Chronic heart failure with preserved ejection fraction (HFpEF) Hypomagnesemia Acute on chronic renal failure Essential hypertension HLD (hyperlipidemia) Non-ST elevated myocardial infarction Diabetes mellitus Nonischemic cardiomyopathy Irritable bowel syndrome with diarrhea Gastroparesis GERD (gastroesophageal reflux disease) Family History Father Lung cancer Mother Diabetes HTN (hypertension) Heart disease Sister Diabetes Heart disease Brother Heart disease Son Diabetes Daughter Diabetes Surgical History Status post amputation of finger H/O surgical amputation of finger History of laparoscopic cholecystectomy History of intestinal surgery Hx of eye surgery History of esophagogastroduodenoscopy (EGD) Hx of colonoscopy H/O: hysterectomy Social History Household Members: Children Household Members Other:: SNF Housing: House Do you presently have visiting nurse or other home services: No Unable to assess alcohol history related to: Unknown Alcohol intake: never Comment: report called by previous shift RN Patient Tobacco Use Status: Never used Tobacco Smoked in Last 30 Days: No e-Cigarette/Vaping Use: Never Used Second Hand Smoke Exposure: No Use of substances other than those prescribed or required for medical reasons: No Advance Directives: Yes Advance Directives on File: Yes Advance Directives Date on File: 01/04/23 Nutrition Risks: No Nutritional Risk service: No Current occupational status: disabled Meds Allergies Allergy/AdvReac Type Severity Reaction Status Date / Time latex [LATEX] Allergy Intermediate ITCHY Verified 11/22/23 09:30 Active Medications: Current Medications Acetaminophen (Acetaminophen 325 Mg Tablet) 650 mg PO Q6H PRN PRN Reason: Pain, Mild (Pain Scale 1-3) Heparin Sodium (Porcine) (Heparin Sodium,Porcine 5,000 Unit/Ml Vial) 5,000 unit SUBCUT Q8H [facility] Pharmacy Consult (Consult Rx Vancomycin Dosing) 1 each MISCELLANE DAILY PRN PRN Reason: Consult order Sodium Chloride (0.9 % Sodium Chloride Flush 3 Ml Syringe) 3 ml IVFLUSH QSHIFT [facility] Home Medications Medication Instructions Recorded Confirmed Last Taken Type aspirin 81 mg tablet,delayed 81 mg PO BEDTIME 06/20/21 12/03/23 09/20/23 History release atorvastatin 80 mg tablet 80 mg PO BEDTIME 06/20/21 12/03/23 09/20/23 History clopidogrel 75 mg tablet 75 mg PO DAILY 06/20/21 12/03/23 09/20/23 History insulin glargine 100 unit/mL (3 20 unit subcut BEDTIME 03/25/22 12/03/23 09/20/23 History mL) subcutaneous pen (Lantus Solostar U-100 Insulin) magnesium oxide 400 mg (241.3 mg 400 mg PO DAILY 04/20/23 12/03/23 09/20/23 History magnesium) tablet blood sugar diagnostic (OneTouch #10 ea 05/25/23 Unknown History Ultra Test strips) insulin aspart U-100 100 unit/mL 1 sliding scale dose subcut 05/25/23 12/03/23 09/20/23 History (3 mL) subcutaneous pen (Novolog NEEDED PRN bs >200 FlexPen U-100 Insulin aspart) lancets 33 gauge (OneTouch Delica #100 ea 05/25/23 Unknown History Plus Lancet) pen needle, diabetic 32 gauge x #1,200 ea 05/25/23 Unknown History (Pentips) albuterol sulfate 90 mcg/actuation 2 inh inhalation Q4H PRN shortness 09/21/23 12/03/23 Unknown History aerosol inhaler of breath or wheezing melatonin 5 mg tablet 5 - 10 mg PO BEDTIME PRN Sleep 09/21/23 12/03/23 09/20/23 History sevelamer carbonate 800 mg tablet 800 mg PO TIDWM 10/08/23 12/03/23 Unknown History amlodipine 5 mg tablet 5 mg PO DAILY 11/19/23 12/03/23 Unknown History Physical Exam 2 Vital Signs and Narrative: Vital Signs: Last Vital Signs Temp 98.7 F 01/02/24 03:31 Pulse 70 01/02/24 06:04 Resp 20 01/02/24 06:04 BP 140/71 H 01/02/24 06:04 Pulse Ox 95 01/02/24 06:04 O2 Del Method Room Air 01/02/24 06:04 BMI result Body Mass Index 33.0 Constitutional - Awake and Alert, No apparent distress. Afebrile HEENT - Normocephalic. Atraumatic. Moist mucous Heart - S1S2, RRR. Lungs - Normal lung expansion, Normal respiratory effort, No respiratory distress, CTA bilaterally Abdomen - NT / ND; +BS; No rebound or guarding - No CVA tenderness Extremities - left BKA. Skin - Warm/Dry Neurological - Alert & oriented x3. No focal weakness grossly noted. Normal speech. Psychological - Appropriate affect Results Labs 01/02/24 05:39 01/02/24 05:39 Labs: Laboratory Results - last 24 hr 01/01/24 01/01/24 01/01/24 16:05 16:06 16:08 MCV 86.6 MCH 27.1 MCHC 31.3 RDW 13.9 Plt Count 190 D MPV 11.1 Immature Gran % (Auto) 0.7 H Neut % (Auto) 66.8 Lymph % (Auto) 19.7 L [place] % (Auto) 8.9 Eos % (Auto) 3.2 Baso % (Auto) 0.7 Lymph # (Auto) 1.4 [place] # (Auto) 0.6 Eos # (Auto) 0.2 Baso # (Auto) 0.1 Abs Immat Gran (auto) 0.05 H Absolute Neuts (auto) 4.8 Absolute Nucleated RBC 0.000 Nucleated RBC % (auto) 0.0 ESR 34 H Anion Gap 11 L Estim Creat Clear Calc 25.7 Estimated GFR 30 Random Glucose 202 H Lactic Acid 1.7 Calcium 8.2 L D Total Bilirubin 0.3 AST 16 ALT 16 Alkaline Phosphatase 198 H C-Reactive Protein < 0.10 Total Protein 6.7 Albumin 2.9 L Imaging Radiologist's Impressions: Impressions Finger X-Ray 01/01/24 16:33 IMPRESSION: Soft tissue swelling and question osteomyelitis of the third finger. Foot X-Ray 01/01/24 16:33 IMPRESSION: No x-ray evidence of osteomyelitis. 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: with group home use Diabetes mellitus complication status: with kidney complications Chronic kidney disease stage: on chronic dialysis Diabetes mellitus complication detail: with chronic kidney disease Qualified Code(s): E 11.22 - Type 2 diabetes mellitus with diabetic chronic kidney disease; N18.6 - End stage renal disease; Z79.4 - long-term (current) use of insulin; Z99.2 - Dependence on renal dialysis Status: Acute (2) Congestive heart failure: Qualifiers: Heart failure type: systolic Heart failure chronicity: chronic Qualified Code(s): I50.22 - Chronic systolic (congestive) heart failure Status: Acute (3) End stage renal disease on dialysis: Status: Acute (4) Wound, open, hand with or without fingers with complication: Qualifiers: Encounter type: initial encounter Laterality: right Qualified Code(s): S61.401A - Unspecified open wound of right hand, initial encounter Status: Acute Plan Debbie Guerra is a 68 years old woman presents with: * Right middle finger and right 2nd necrotic ulcers, suspecting calcific uremic arteriopathy (calciphylaxis?). Doubt associated osteomyelitis cellulitis (no leukocytosis, normal CRP). Check phosphate, PTH and vitamin-D. Vascular surgery consult. * Type 2 diabetes mellitus. Blood glucose monitoring before meals at bedtime. * Essential hypertension. Continue valsartan and carvedilol. * Hyperlipidemia. Continue statin. * ESRD on HD. M,W,F. Nephrology consult for inpatient hemodialysis. * HFrEF. Continue carvedilol, ARB and statin. * History of CVA. Continue Plavix, aspirin and statin. * Mood disorder. Continue my stabilized. Patient is unable to recall the name of her medications. Home meds list needs verification by pharmacy. Quality Stroke Does the patient have a stroke diagnosis?: No VTE Prior VTE?: No VTE Risk Level:: Medical - moderate - high VTE Device Contraindication: Treatment Not Indicated VTE Drug Contraindication: N/A - Med Ordered
[2024-01-02 06:37] LABS: Basophils Absolute Auto 0.1 X10*3/uL (0.0-0.2); Basophils Percent Auto 0.7 % (0-2); Eosinophils Absolute Auto 0.1 X10*3/uL (0.0-0.4); Eosinophils Percent Auto 1.7 % (0-4); Imm Gran Abs Auto 0.06 X10*3/uL (0.00-0.03); Imm Gran Pct Auto 0.8 % (0.0-0.4); Lymphocytes Absolute Auto 1.7 X10*3/uL (1.2-4.9); Lymphocytes Percent Auto 22.7 % (20-40); Mean Corpuscular HGB Conc 31.3 g/dl (31.0-35.0); Mean Corpuscular Hemoglobin 27.2 pg (27.0-33.0); Mean Platelet Volume 11.5 fL (9.4-12.3); Monocytes Absolute Auto 0.9 X10*3/uL (0.1-1.2); Monocytes Percent Auto 12.4 % (2-11); Neutrophils Absolute Auto 4.7 x10*3/uL (2.0-8.3); Neutrophils Percent Auto 61.7 % (45-73); Platelet Count 175 X10*3/uL (160-400); Red Blood Count 3.68 X10*6/uL (4.20-5.50); Red Cell Distribution Width 13.8 % (11.0-16.0); White Blood Count 7.5 X10*3/uL (4.8-10.8)
--- NOTE | 2024-01-02 06:37 | MHC.EDTECH ---
Pt requested help with a bedside commode to have a bm. Pt did well with pivoting on right leg with extensive assist of one with transferring, as well as toileting, and personal hygiene. Pt had a large, hard bm. Pt repositioned in bed and back of bed elevated.
--- NOTE | 2024-01-02 06:40 | PC.NURSE ---
Patient is alert and oriented x3, she is able to make her needs known. VSS. Patient denies any pain. Medicated per NOV. 22 G IV line in R AC patent. + bruit and thrill noted to L upper arm dialysis fistula. Patient uses bedside commode with 1 assist. Call peck within patient's reach.
[2024-01-02 07:12] LABS: Alanine Aminotransferase 17 U/L (0-31); Albumin Level 2.7 g/dL (3.5-5.0); Alkaline Phosphatase 189 U/L (39-117); Anion Gap 15 (12-20); Aspartate Amino Transferase 19 U/L (5-31); Bilirubin Total 0.3 mg/dL (0.0-1.0); Blood Urea Nitrogen 25 mg/dL (9-16); Calcium 7.9 mg/dL (8.4-10.2); Carbon Dioxide 27 mmol/L (22-29); Chloride 105 mmol/L (96-108); Creatinine Clr Calc Pharmacy 18.6; Estimated Glomerular Filt Rate 20; Glucose Random 158 mg/dL (60-115); Phosphorus 3.3 mg/dL (2.7-4.5); Potassium 4.5 mmol/L (3.3-5.1); Sodium 142 mmol/L (135-145); Total Protein 6.2 g/dL (6.5-8.0)
[2024-01-02] MEDS: 0.9 % Sodium Chloride Flush 3 ML SYRINGE IVFLUSH (08:05)
--- NOTE | 2024-01-02 08:06 | PC.NURSE ---
Alert and oriented, denies pain or discomfort, BS 132, awaiting transport to bed 357. Ate well for breakfast
[2024-01-02 08:23] LABS: Glucose, Whole Blood 132 mg/dL (60-115)
[2024-01-02 10:00] VITALS: BP 177/74; PULSE 76; RESP 14; TEMP 36.6; O2SAT 97
--- NOTE | 2024-01-02 10:08 | PHA.MEDREC ---
Pharmacy Consult ? Medication Reconciliation Pharmacy has completed the medication reconciliation. Used a combination of list faxed from [facility], claim history and recent discharge summary (12/06/23)
--- NOTE | 2024-01-02 10:10 | PC.NURSE ---
right 3rd finger
--- NOTE | 2024-01-02 10:11 | PC.NURSE ---
right foot open areas
[2024-01-02] MEDS: Heparin Sodium,Porcine 5,000 UNIT/ML VIAL 5000 UNIT SUBCUT (10:33)
--- NOTE | 2024-01-02 10:52 | P.PNIM_ITS ---
Subjective Subjective Date of Service: 01/02/24 Review of Systems Follow up foot and hand wounds no pain or discomfort Physical Exam 2 Vital Signs: Vital Signs: Last Vital Signs Temp 97.8 F 01/02/24 10:00 Pulse 76 01/02/24 10:00 Resp 14 01/02/24 10:00 BP 177/74 H 01/02/24 10:00 Pulse Ox 97 01/02/24 10:00 O2 Del Method Room Air 01/02/24 10:00 BMI result Body Mass Index 33.0 Appearing in no acute distress lung sounds are clear to auscultation heart regular rate rhythm, clear S1, S2 positive bowel sounds, abdomen is soft, nontender neuro patient is alert x3, no focal deficits Objective Data Active Medications Acetaminophen (Acetaminophen 325 Mg Tablet) 650 mg PO Q6H PRN PRN Reason: Pain, Mild (Pain Scale 1-3) Dextrose (Dextrose 50 % 25 Gm/50 Ml Syringe) 25 gm IVPUSH Q15M PRN; Protocol PRN Reason: per Hypoglycemia Standing Ord. Glucose (Glucose Gel 15 Gm Gel..Gram.) 15 gm PO Q15M PRN; Protocol PRN Reason: per Hypoglycemia Standing Ord. Heparin Sodium (Porcine) (Heparin Sodium,Porcine 5,000 Unit/Ml Vial) 5,000 unit SUBCUT Q8H [facility] Last Admin: 01/02/24 10:33 Dose: 5,000 unit Documented By: RICO Insulin Human Lispro (Insulin Lispro 100 Unit/Ml 3 Ml Vial) 0 unit SUBCUT QIDACHS [facility]; Protocol Sodium Chloride (0.9 % Sodium Chloride Flush 3 Ml Syringe) 3 ml IVFLUSH QSHIFT [facility] Last Admin: 01/02/24 08:05 Dose: 3 ml Documented By: JUAN M Labs 01/02/24 05:39 01/02/24 05:39 Labs: Laboratory Results - last 24 hr 01/01/24 01/01/24 01/01/24 16:05 16:06 16:08 MCV 86.6 MCH 27.1 MCHC 31.3 RDW 13.9 Plt Count 190 D MPV 11.1 Immature Gran % (Auto) 0.7 H Neut % (Auto) 66.8 Lymph % (Auto) 19.7 L [place] % (Auto) 8.9 Eos % (Auto) 3.2 Baso % (Auto) 0.7 Lymph # (Auto) 1.4 [place] # (Auto) 0.6 Eos # (Auto) 0.2 Baso # (Auto) 0.1 Abs Immat Gran (auto) 0.05 H Absolute Neuts (auto) 4.8 Absolute Nucleated RBC 0.000 Nucleated RBC % (auto) 0.0 ESR 34 H Anion Gap 11 L Estim Creat Clear Calc 25.7 Estimated GFR 30 POC Glucose Random Glucose 202 H Lactic Acid 1.7 Calcium 8.2 L D Phosphorus Total Bilirubin 0.3 AST 16 ALT 16 Alkaline Phosphatase 198 H C-Reactive Protein < 0.10 Total Protein 6.7 Albumin 2.9 L 01/02/24 01/02/24 05:39 07:48 MCV 87.0 MCH 27.2 MCHC 31.3 RDW 13.8 Plt Count 175 MPV 11.5 Immature Gran % (Auto) 0.8 H Neut % (Auto) 61.7 Lymph % (Auto) 22.7 [place] % (Auto) 12.4 H Eos % (Auto) 1.7 Baso % (Auto) 0.7 Lymph # (Auto) 1.7 [place] # (Auto) 0.9 Eos # (Auto) 0.1 Baso # (Auto) 0.1 Abs Immat Gran (auto) 0.06 H Absolute Neuts (auto) 4.7 Absolute Nucleated RBC 0.000 Nucleated RBC % (auto) 0.0 ESR Anion Gap 15 Estim Creat Clear Calc 18.6 Estimated GFR 20 POC Glucose 132 H Random Glucose 158 H Lactic Acid Calcium 7.9 L Phosphorus 3.3 Total Bilirubin 0.3 AST 19 ALT 17 Alkaline Phosphatase 189 H C-Reactive Protein Total Protein 6.2 L Albumin 2.7 L Assessment and Plan Plan 68-year-old woman admitted with right middle finger and right 2nd toe necrotic ulcers with history of diabetes mellitus. Right middle finger and right 2nd necrotic ulcers Both wounds pretty dry, no drainage or odor Vascular surgery consultation pending Wound care nurse consultation pending Diabetes mellitus type 2 Sliding scale, ADA diet Hypertension Continue valsartan and carvedilol Hyperlipidemia Continue statin End-stage renal disease on hemodialysis Monday, Monday, Monday Nephrology consultation for inpatient hemodialysis Heart failure with reduced ejection fraction No exacerbation Continue carvedilol, Arb and statin History of CVA Continue aspirin, Plavix and statin Mental health Supportive care DVT prophylaxis with heparin Attending Dr. Feliz Full code Quality Stroke Does the patient have a stroke diagnosis?: No VTE Prior VTE?: No VTE Risk Level:: Medical - moderate - high VTE Device Contraindication: Treatment Not Indicated VTE Drug Contraindication: N/A - Med Ordered
[2024-01-02 11:18] LABS: Glucose, Whole Blood 279 mg/dL (60-115)
[2024-01-02] MEDS: Insulin Lispro 100 UNIT/ML 3 ML VIAL SUBCUT (11:53)
--- NOTE | 2024-01-02 13:31 | PM.DS ---
DS: Providers Provider Date of Service: 01/02/24 Date of admission: 01/02/24 10:08 Primary care physician: Alexys Avila MD Consults: 01/02/24 00:23 Consult to Vascular Surgery Stat Consulting Provider: [facility] Reason for consultation: wounds RUE RLE 01/02/24 01:24 Consult to Vascular Surgery Routine Consulting Provider: [facility] Reason for consultation: finger and toe ulcers Has provider been notified: Yes 01/02/24 06:43 Consult to Nephrology Routine Consulting Provider: [facility] Reason for consultation: ESRD on HD, calciphylaxis? Has provider been notified: No 01/02/24 09:51 Consult to Wound Care Routine Reason for consultation: multiple open areas to right foot, scabbed area right 3rd finger DS: Diagnosis Discharge Diagnosis (1) Diabetes mellitus: Status: Acute (2) Congestive heart failure: Status: Acute (3) End stage renal disease on dialysis: Status: Acute (4) Wound, open, hand with or without fingers with complication: Status: Acute DS: Summary Hospital Course Hospital Course: History and physical as per admitting provider. Debbie Guerra is a 68 years old woman with past medical history significant for end-stage renal disease on hemodialysis (M,W,F), HFrEF, type 2 diabetes mellitus on insulin, GERD essential hypertension presents to the emergency department complaining of right middle finger (prior amputation of distal phalanx) and right 2nd finger/toes tips ulcer that she had noted over the last month. 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 She denied any headache, dizziness, fevers chills. She denies any acute cardiopulmonary, gastrointestinal or genitourinary symptoms. She still makes urine. Last hemoglobin cessation was yesterday and was completed without complications. She denied tobacco smoking, alcohol abuse or illicit drug use. In the ED, patient was found to have stable vital signs. Blood workup showed no leukocytosis or bandemia. Creatinine is 1.71. CRP is < 0.10. Right foot right middle finger x-ray showed soft tissue swelling with pressure stat of the 3rd finger. ED tx: Vancomycin 1750 mg IV, Zosyn 3.375 mg IV 68-year-old woman treated for right foot 2nd toe dry gangrene. Seen and evaluated by vascular surgery with recommendation for outpatient follow-up and a few days of doxycycline at home. No need for any surgical intervention at this time. Foot x-ray showing no evidence of osteomyelitis. No fever, white blood cell count. Plan is to discharge patient home, discussed this with daughter and both are in agreement. Diabetes mellitus type 2. Continue home medications Hypertension. Continue valsartan and carvedilol Hyperlipidemia. Continue statin End-stage renal disease on hemodialysis. Continue regular days Monday, Monday and Monday Heart failure with reduced ejection fraction. No exacerbation during hospitalization. Continue carvedilol, Arb and statin History of CVA. Continue aspirin, Plavix and statin Time Attestation Discharge Coordination Time (in mins): 35 Quality: Safe Use of Opioids Does Pt have an Active Cancer Diagnosis on the Problem List?: No Quality: Stroke Does the patient have a stroke diagnosis?: No Physical Exam Vital Signs: Vital Signs: Last Vital Signs Temp 97.8 F 01/02/24 10:00 Pulse 76 01/02/24 10:00 Resp 14 01/02/24 10:00 BP 177/74 H 01/02/24 10:00 Pulse Ox 97 01/02/24 10:00 O2 Del Method Room Air 01/02/24 10:00 BMI result Body Mass Index 33.0 Appearing in no acute distress head is normocephalic atraumatic eyes pupils are PERRLA sclera is anicteric mouth throat mucous membranes are intact and moist neck is supple no lymphadenopathy, no JVD noted lung sounds are clear to auscultation heart regular rate rhythm, clear S1, S2 positive bowel sounds, abdomen is soft, nontender neuro patient is alert x3, no focal deficits Left BKA, finger wound from patient biting area ed DS: Data Data Completed and Pending Completed studies during hospitalization [Text1]: Procedures Detachment at Left Index Finger, Mid, Open Approach (09/15/22) Dilation of Esophagus, Via Natural or Artificial Opening Endoscopic (01/31/22) Dilation of Upper Esophagus, Via Natural or Artificial Opening Endoscopic (08/16/21) Fluoroscopy of Superior Vena Cava using Low Osmolar Contrast, Guidance (12/27/22) Insertion of Infusion Device into Superior Vena Cava, Percutaneous Approach (12/27/22) Introduction of Other Thrombolytic into Peripheral Vein, Percutaneous Approach (06/05/21) Performance of Urinary Filtration, Intermittent, Less than 6 Hours Per Day (12/02/23) Transfusion of Nonautologous Red Blood Cells into Peripheral Vein, Percutaneous Approach (12/27/22) Labs on day of discharge: Laboratory Results - last 24 hr 01/01/24 01/01/24 01/01/24 16:05 16:06 16:08 WBC 7.2 RBC 3.87 L Hgb 10.5 L Hct 33.5 L MCV 86.6 MCH 27.1 MCHC 31.3 RDW 13.9 Plt Count 190 D MPV 11.1 Immature Gran % (Auto) 0.7 H Neut % (Auto) 66.8 Lymph % (Auto) 19.7 L [place] % (Auto) 8.9 Eos % (Auto) 3.2 Baso % (Auto) 0.7 Lymph # (Auto) 1.4 [place] # (Auto) 0.6 Eos # (Auto) 0.2 Baso # (Auto) 0.1 Abs Immat Gran (auto) 0.05 H Absolute Neuts (auto) 4.8 Absolute Nucleated RBC 0.000 Nucleated RBC % (auto) 0.0 ESR 34 H Sodium 142 Potassium 4.0 Chloride 99 Carbon Dioxide 36 H Anion Gap 11 L BUN 15 Creatinine 1.71 H Estim Creat Clear Calc 25.7 Estimated GFR 30 POC Glucose Random Glucose 202 H Lactic Acid 1.7 Calcium 8.2 L D Phosphorus Total Bilirubin 0.3 AST 16 ALT 16 Alkaline Phosphatase 198 H C-Reactive Protein < 0.10 Total Protein 6.7 Albumin 2.9 L 01/02/24 01/02/24 01/02/24 05:39 07:48 11:11 WBC 7.5 RBC 3.68 L Hgb 10.0 L Hct 32.0 L MCV 87.0 MCH 27.2 MCHC 31.3 RDW 13.8 Plt Count 175 MPV 11.5 Immature Gran % (Auto) 0.8 H Neut % (Auto) 61.7 Lymph % (Auto) 22.7 [place] % (Auto) 12.4 H Eos % (Auto) 1.7 Baso % (Auto) 0.7 Lymph # (Auto) 1.7 [place] # (Auto) 0.9 Eos # (Auto) 0.1 Baso # (Auto) 0.1 Abs Immat Gran (auto) 0.06 H Absolute Neuts (auto) 4.7 Absolute Nucleated RBC 0.000 Nucleated RBC % (auto) 0.0 ESR Sodium 142 Potassium 4.5 Chloride 105 Carbon Dioxide 27 Anion Gap 15 BUN 25 H Creatinine 2.36 H Estim Creat Clear Calc 18.6 Estimated GFR 20 POC Glucose 132 H 279 H Random Glucose 158 H Lactic Acid Calcium 7.9 L Phosphorus 3.3 Total Bilirubin 0.3 AST 19 ALT 17 Alkaline Phosphatase 189 H C-Reactive Protein Total Protein 6.2 L Albumin 2.7 L Discharge Plan Discharge Anticipated Discharge Date/Time: 01/02/24 13:28 Patient Disposition: Home, Self-Care Discharge Diagnosis: Dry gangrene to right foot 2nd toe Referrals: Alexys Avila MD [Primary Care Provider] - 1 Week Discharge Medications: New doxycycline hyclate 100 mg tablet 100 mg PO BID Qty: 10 0RF Continued atorvastatin 80 mg tablet 80 mg PO BEDTIME clopidogrel 75 mg tablet 75 mg PO DAILY aspirin 81 mg tablet,delayed release (DR/EC) 81 mg PO BEDTIME insulin glargine [Lantus Solostar U-100 Insulin] 100 unit/mL (3 mL) insulin pen 20 unit subcut BEDTIME magnesium oxide 400 mg (241.3 mg magnesium) tablet 400 mg PO DAILY sevelamer carbonate 800 mg tablet 800 mg PO TIDWM carvedilol 12.5 mg Tablet 12.5 mg PO BIDWM Qty: 60 1RF Protocol: Hold for SBP/HR < HOLD for SBP < : 90 HOLD for HR < : 60 valsartan 80 mg Tablet 80 mg PO BID Qty: 60 1RF Protocol: Hold for SBP< HOLD for SBP < : 90 lidocaine 5 % ointment 1 appl topical QID PRN (Reason: pain) Qty: 50 0RF Rx Instructions: applied to anal area 15 minutes prior to attempted bowel movement hydrocortisone [Preparation H Hydrocortisone] 1 % cream 1 appl topical TID PRN (Reason: itching) Qty: 28.35 0RF melatonin 5 mg tablet 9 mg PO BEDTIME PRN (Reason: Sleep) cholecalciferol (vitamin D3) 1,250 mcg (50,000 unit) capsule 1,250 mcg PO QWEEK pantoprazole 40 mg tablet,delayed release (DR/EC) 40 mg PO DAILY@0630 Rx Instructions: take one tablet half an hour before breakfast albuterol sulfate 90 mcg/actuation aerosol powdr breath activated 2 inh inhalation Q6H PRN (Reason: shortness of breath or wheezing) sennosides [Natural Senna Laxative] 8.6 mg tablet 17.2 mg PO BEDTIME Qty: 60 3RF (DME) lancets [OneTouch Delica Plus Lancet] 33 gauge misc See Rx Instructions .ROUTE TID Qty: 100 Rx Instructions: As directed (DME) pen needle, diabetic [Pentips] 32 gauge x 5/32 needle See Rx Instructions .ROUTE DIRECTED Qty: 1200 Rx Instructions: As directed (DME) OneTouch Ultra Test Strip See Rx Instructions .ROUTE TID Qty: 10 Rx Instructions: As directed insulin aspart U-100 [Novolog FlexPen U-100 Insulin] 100 unit/mL (3 mL) insulin pen See Protocol subcut NEEDED PRN (Reason: bs >200) Protocol: Insulin Correction Scale Less than or equal to 110 ---- Give (units): 0 111 to 150 Give (units): 0 151 to 200 Give (units): 2 201 to 250 Give (units): 4 251 to 300 Give (units): 6 301 to 350 Give (units): 8 Greater than 350 Give (units): 10 Call MD if Blood Glucose > : 350 Rx Instructions: 8-12 units SLIDING SCALE Discharge Orders: Discharge Order (Routine); Ordered 01/02/24 Ordered By: Maria Luisa Matos Diet: Advance to usual diet Activity on Discharge: As tolerated Stand Alone Forms: Patient Portal Discharge page Care Plan Goals: Take all medications as prescribed Health Concerns: Dry gangrene to right foot 2nd toe Plan of Treatment: Follow-up with primary care provider as needed Follow-up with vascular surgeon to reassess wound on toe Assessment: See discharge summary
--- NOTE | 2024-01-02 14:32 | PM.CNGS ---
History of Present Illness Consult details Consult date: 01/02/24 Reason for consult: wound care Narrative: Nonhealing hand and foot ulcer. This is a complex 68-year-old female who actually had a left upper extremity fistula placed by ut back in 02/20/2023. Apparently it had infiltrated and she had a PermCath placed on the right IJ. they are using 1 needle in the fistula and 1 in the catheter at the current time. Apparently she presented to the hospital as she had a right finger injury that has been nonhealing at the tip of the finger. Has been a source of discomfort for her. There was concern whether they had this had osteomyelitis last night. In addition the right lower extremity has a gangrenous necrotic toe. This is dry in nature. Review of Systems Review of Systems: Yes all other systems are reviewed and are negative Constitutional: Constitutional: Reports no additional constitutional complaints ENT: Reports Normal hearing present Cardiovascular: Cardiovascular: Denies chest pain, Denies chest pain at rest, Denies chest pain with activity and Denies pedal edema Respiratory: Respiratory: Denies cough Gastrointestinal: Gastrointestinal: Denies abdominal pain Musculoskeletal: Musculoskeletal: Denies abnormal gait, Denies muscle cramps and Denies radiating pain into limb Integumentary/Breasts: Skin/Breast: Denies skin ulcer and Denies wounds Neurologic: Reports Normal hearing present and Denies abnormal gait Psychiatric: Psychiatric: Reports no additional psychiatric complaints [facility] Past Medical History Medical History Congestive heart failure Hyperglycemia due to diabetes mellitus Anemia End stage renal disease Heart failure with reduced ejection fraction Dialysis patient, noncompliant Chronic kidney disease Thrombocytopenia CKD (chronic kidney disease) stage 4, GFR 15-29 ml/min Constipation Ischemic necrosis of finger Normocytic anemia Urinary tract infection due to ESBL Klebsiella Chronic heart failure with preserved ejection fraction (HFpEF) Hypomagnesemia Acute on chronic renal failure Essential hypertension HLD (hyperlipidemia) Non-ST elevated myocardial infarction Diabetes mellitus Nonischemic cardiomyopathy Irritable bowel syndrome with diarrhea Gastroparesis GERD (gastroesophageal reflux disease) Family History Family History Father Lung cancer Mother Diabetes HTN (hypertension) Heart disease Sister Diabetes Heart disease Brother Heart disease Son Diabetes Daughter Diabetes Surgical History Surgical History Status post amputation of finger H/O surgical amputation of finger History of laparoscopic cholecystectomy History of intestinal surgery Hx of eye surgery History of esophagogastroduodenoscopy (EGD) Hx of colonoscopy H/O: hysterectomy Social History Social History Household Members: Family Household Members Other:: Daughter and grandson Housing: House Do you presently have visiting nurse or other home services: Yes (Grandson is her home health aide) Unable to assess alcohol history related to: Unknown Alcohol intake: never Comment: report called by previous shift RN Patient Tobacco Use Status: Never used Tobacco Smoked in Last 30 Days: No e-Cigarette/Vaping Use: Never Used Patient Interested in Nicotine Replacement: No Patient Given Instructions on How to Stop Smoking: No Second Hand Smoke Exposure: No Use of substances other than those prescribed or required for medical reasons: No Currently Displaying Signs/Symptoms of Drug Intoxication Withdrawal: No Any prior treatment program specific to substance use: No Have you been hit, kicked, punched, or otherwise hurt by someone within the past year? If so, by whom?: No Do you feel safe in your current relationship?: No Current Relationship Is there a partner from a previous relationship who is making you feel unsafe now?: No Are you made to feel afraid or neglected: No Advance Directives: Yes Advance Directives Information Provided: No Advance Directives on File: Yes Advance Directives Date on File: 01/04/23 Do you have thoughts of harming others: None Do you have a plan to hurt others: No Plan Recently lost weight without trying: Yes How much weight loss: 24-33 pounds Eating poorly because of decreased appetite: Yes Nutrition screen score: 6 Nutrition Risks: Dental problems and Difficulty swallowing Patient : No : No Poor oral hygiene: No service: No Current occupational status: disabled Meds Allergies Allergy/AdvReac Type Severity Reaction Status Date / Time latex [LATEX] Allergy Intermediate ITCHY Verified 11/22/23 09:30 Active Medications: Current Medications Acetaminophen (Acetaminophen 325 Mg Tablet) 650 mg PO Q6H PRN PRN Reason: Pain, Mild (Pain Scale 1-3) Dextrose (Dextrose 50 % 25 Gm/50 Ml Syringe) 25 gm IVPUSH Q15M PRN; Protocol PRN Reason: per Hypoglycemia Standing Ord. Glucose (Glucose Gel 15 Gm Gel..Gram.) 15 gm PO Q15M PRN; Protocol PRN Reason: per Hypoglycemia Standing Ord. Heparin Sodium (Porcine) (Heparin Sodium,Porcine 5,000 Unit/Ml Vial) 5,000 unit SUBCUT Q8H [facility] Last Admin: 01/02/24 10:33 Dose: 5,000 unit Insulin Human Lispro (Insulin Lispro 100 Unit/Ml 3 Ml Vial) 0 unit SUBCUT QIDACHS [facility] [place]; Protocol Last Admin: 01/02/24 11:53 Dose: 6 unit Sodium Chloride (0.9 % Sodium Chloride Flush 3 Ml Syringe) 3 ml IVFLUSH QSHIFT [facility] [place] Last Admin: 01/02/24 08:05 Dose: 3 ml Home Medications Medication Instructions Recorded Confirmed Last Taken Type aspirin 81 mg tablet,delayed 81 mg PO BEDTIME 06/20/21 01/02/24 09/20/23 History release atorvastatin 80 mg tablet 80 mg PO BEDTIME 06/20/21 01/02/24 09/20/23 History clopidogrel 75 mg tablet 75 mg PO DAILY 06/20/21 01/02/24 09/20/23 History insulin glargine 100 unit/mL (3 20 unit subcut BEDTIME 03/25/22 01/02/24 09/20/23 History mL) subcutaneous pen (Lantus Solostar U-100 Insulin) magnesium oxide 400 mg (241.3 mg 400 mg PO DAILY 04/20/23 01/02/24 09/20/23 History magnesium) tablet blood sugar diagnostic (OneTouch #10 ea 05/25/23 Unknown History Ultra Test strips) insulin aspart U-100 100 unit/mL See Protocol subcut NEEDED PRN 05/25/23 01/02/24 09/20/23 History (3 mL) subcutaneous pen (Novolog bs >200 FlexPen U-100 Insulin aspart) lancets 33 gauge (OneTouch Delica #100 ea 05/25/23 Unknown History Plus Lancet) pen needle, diabetic 32 gauge x #1,200 ea 05/25/23 Unknown History (Pentips) melatonin 5 mg tablet 9 mg PO BEDTIME PRN Sleep 09/21/23 01/02/24 09/20/23 History sevelamer carbonate 800 mg tablet 800 mg PO TIDWM 10/08/23 01/02/24 Unknown History albuterol sulfate 90 mcg/actuation 2 inh inhalation Q6H PRN shortness 01/02/24 01/02/24 Unknown History breath activated powder inhaler of breath or wheezing cholecalciferol (vitamin D3) 1,250 1,250 mcg PO QWEEK 01/02/24 Unknown History mcg (50,000 unit) capsule pantoprazole 40 mg tablet,delayed 40 mg PO DAILY@0630 01/02/24 01/02/24 Unknown History release Physical Exam Vital Signs: Vital Signs: Last Vital Signs Temp 97.8 F 01/02/24 10:00 Pulse 76 01/02/24 10:00 Resp 14 01/02/24 10:00 BP 177/74 H 01/02/24 10:00 Pulse Ox 97 01/02/24 10:00 O2 Del Method Room Air 01/02/24 10:00 BMI result Body Mass Index 33.0 Const: General: cooperative, healthy appearing and comfortable Orientation/consciousness: oriented to person, oriented to place and oriented to time HEENT: Head: Yes normal to inspection Neck: Neck: Yes normal visual inspection Carotids: no bruits Chest: Chest palpation & inspection: normal inspection of the chest Resp: Effort & Inspection: normal respiratory effort and able to speak in complete sentences Auscultation: clear to auscultation bilaterally, no crackles, no rales, no rhonchi and no wheezes Cardio: Rate: regular rate Rhythm: regular rhythm Heart sounds: S1 normal heart sound present and S2 normal heart sound present Bruits: no carotid bruits Peripheral pulses: Peripheral pulses 2+ throughout GI: Inspection: Yes normal to inspection Skin: Other: Left BKA Right 2nd toe dry gangrene Right 3rd finger tip appears to be lacking dermis. Wounds: no wounds Hair: normal Neuro: General: oriented to person, oriented to place and oriented to time Cranial nerves: Yes CN's II-XII intact bilaterally and Yes Normal hearing present Cognition (Neuro): normal cognition Motor exam (neuro): 5/5 motor strength present throughout Extrem: Other: venous exam: No significant superficial varicosities or spider telangiectasias, minimal edema General: No clubbing, No cyanosis and No edema Psych: Appearance: grossly normal Mental Status: mental status grossly normal Speech and movement: Normal speech and movement present Results Labs 01/02/24 05:39 01/02/24 05:39 Labs: Abnormal lab results 01/01/24 01/01/24 01/02/24 Range/Units 16:06 16:08 05:39 RBC 3.87 L 3.68 L (4.20-5.50) X10*6/uL Hgb 10.5 L 10.0 L (12.0-16.0) g/dl Hct 33.5 L 32.0 L (37.0-47.0) % Immature Gran % (Auto) 0.7 H 0.8 H (0.0-0.4) % Lymph % (Auto) 19.7 L (20-40) % [place] % (Auto) 12.4 H (2-11) % Abs Immat Gran (auto) 0.05 H 0.06 H (0.00-0.03) X10*3/uL ESR 34 H (0-20) MM/HR Carbon Dioxide 36 H (22-29) mmol/L Anion Gap 11 L (12-20) BUN 25 H (9-16) mg/dL Creatinine 1.71 H 2.36 H (0.5-1.4) mg/dL POC Glucose (60-115) mg/dL Random Glucose 202 H 158 H (60-115) mg/dL Calcium 8.2 L D 7.9 L (8.4-10.2) mg/dL Alkaline Phosphatase 198 H 189 H (39-117) U/L Total Protein 6.2 L (6.5-8.0) g/dL Albumin 2.9 L 2.7 L (3.5-5.0) g/dL 01/02/24 01/02/24 Range/Units 07:48 11:11 RBC (4.20-5.50) X10*6/uL Hgb (12.0-16.0) g/dl Hct (37.0-47.0) % Immature Gran % (Auto) (0.0-0.4) % Lymph % (Auto) (20-40) % [place] % (Auto) (2-11) % Abs Immat Gran (auto) (0.00-0.03) X10*3/uL ESR (0-20) MM/HR Carbon Dioxide (22-29) mmol/L Anion Gap (12-20) BUN (9-16) mg/dL Creatinine (0.5-1.4) mg/dL POC Glucose 132 H 279 H (60-115) mg/dL Random Glucose (60-115) mg/dL Calcium (8.4-10.2) mg/dL Alkaline Phosphatase (39-117) U/L Total Protein (6.5-8.0) g/dL Albumin (3.5-5.0) g/dL Short CBC 01/01/24 01/02/24 Range/Units 16:06 05:39 WBC 7.2 7.5 (4.8-10.8) X10*3/uL Hgb 10.5 L 10.0 L (12.0-16.0) g/dl Hct 33.5 L 32.0 L (37.0-47.0) % Plt Count 190 D 175 (160-400) X10*3/uL BMP 01/01/24 01/02/24 16:08 05:39 Sodium 142 142 Potassium 4.0 4.5 Chloride 99 105 Carbon Dioxide 36 H 27 BUN 15 25 H Creatinine 1.71 H 2.36 H Calcium 8.2 L D 7.9 L Liver Function 01/01/24 01/02/24 Range/Units 16:08 05:39 Total Bilirubin 0.3 0.3 (0.0-1.0) mg/dL AST 16 19 (5-31) U/L ALT 16 17 (0-31) U/L Alkaline Phosphatase 198 H 189 H (39-117) U/L Albumin 2.9 L 2.7 L (3.5-5.0) g/dL All other labs normal. Assessment and Plan (1) Wound, open, hand with or without fingers with complication: Qualifiers: Encounter type: initial encounter Laterality: right Qualified Code(s): S61.401A - Unspecified open wound of right hand, initial encounter Status: Acute Can schedule follow-up with [facility]. If they are unable to handle it may require evaluation by hand surgery (2) Open wnd toe-complicated: Status: Acute Plan This appears to be dry gangrene. Stable at the current time. Can be handled as an outpatient. Stable from my perspective for discharge. Procedures Date of Service Date of Service: 01/02/24
[2024-01-02 15:19] VITALS: BP 150/77; PULSE 80; RESP 18; TEMP 36.2; O2SAT 97
== END 2024-01-02 16:10 | disposition home or self-care (01) | DRG 299 ==
LOC: HO.ED 23:36 → HO.EDOVER 01-02 01:28 → HO.S3 01-02 06:14
PROVIDERS: Registered Nurse Emergency; Admitting Provider Internal Medicine; Emergency Provider Emergency Medicine Emergency Medical Services; PCP Internal Medicine; Visit Provider Nurse Practitioner Acute Care
DX: E11.52 Type 2 diabetes mellitus with diabetic peripheral angiopathy with gangrene (principal); N18.6 End stage renal disease; I13.2 Hypertensive heart and chronic kidney disease with heart failure and with stage 5 chronic kidney disease, or end stage renal disease; I77.5 Necrosis of artery; I50.22 Chronic systolic (congestive) heart failure; L97.519 Non-pressure chronic ulcer of other part of right foot with unspecified severity; L98.499 Non-pressure chronic ulcer of skin of other sites with unspecified severity; E11.22 Type 2 diabetes mellitus with diabetic chronic kidney disease; F39 Unspecified mood [affective] disorder; E78.5 Hyperlipidemia, unspecified; Z99.2 Dependence on renal dialysis; Z91.040 Latex allergy status; Z86.73 Personal history of transient ischemic attack (TIA), and cerebral infarction without residual deficits; Z89.512 Acquired absence of left leg below knee; Z79.82 Long term (current) use of aspirin; Z79.02 Long term (current) use of antithrombotics/antiplatelets; Z79.4 Long term (current) use of insulin; Z79.899 Other long term (current) drug therapy
CPT/HCPCS: 36415; 73140; 73630; 80053; 82947; 83605; 84100; 85025; 85652; 86140; 87040; 99285; J1644; J2543; J3370

== ENCOUNTER → 2024-01-02 01:20 | Outpatient (BNV) | payer OTHER, SELFPAY | PROVIDERS: Admitting Provider Internal Medicine; Emergency Provider Emergency Medicine Emergency Medical Services; PCP Internal Medicine; Visit Provider Internal Medicine | DX: E11.22 Type 2 diabetes mellitus with diabetic chronic kidney disease (principal); N18.6 End stage renal disease; Z79.4 Long term (current) use of insulin; Z99.2 Dependence on renal dialysis; I50.22 Chronic systolic (congestive) heart failure; S61.401A Unspecified open wound of right hand, initial encounter | CPT/HCPCS: 99223; 99499 ==

== ENCOUNTER → 2024-01-02 10:08 | Outpatient (BNV) | payer OTHER, SELFPAY | PROVIDERS: Admitting Provider Internal Medicine; Emergency Provider Emergency Medicine Emergency Medical Services; PCP Internal Medicine; Visit Provider Surgery Vascular Surgery | DX: S61.202A Unspecified open wound of right middle finger without damage to nail, initial encounter (principal); I96 Gangrene, not elsewhere classified; L97.518 Non-pressure chronic ulcer of other part of right foot with other specified severity; Z89.512 Acquired absence of left leg below knee | CPT/HCPCS: 99222 ==

== ENCOUNTER 2024-01-03 09:47 | Emergency (ER) | payer OTHER, SELFPAY ==
--- NOTE | ~2024-01-03 | CT_ITS ---
EXAMINATION: CT HEAD W/O IV CONTRAST CT FACIAL BONES WITHOUT IV CONTRAST CLINICAL INFORMATION: History of fall yesterday. Chin and jaw pain. Head strike. COMPARISON: Head CT from 03/10/2022. TECHNIQUE: Head - Contiguous axial imaging of the head was performed from the skull base to the vertex without the administration of intravenous contrast, and axial images are reconstructed at 0.625 mm and 5 mm slice thickness. Facial bones - Volumetric, helical CT acquisitions of the facial bones obtained without contrast; in addition to the standard set of axial images, multiplanar reformatted images were provided in the coronal and sagittal imaging planes. This CT examination was performed using dose optimization techniques as appropriate, variously including the following: *Automated exposure control *Adjustment of mA and/or kV according to patient size (this includes techniques or standardized protocols for targeted exams where dose is matched to indication/reason for exam; i.e. extremities or head) *Use of iterative reconstruction technique DLP: 1731 mGy-cm (total, for CT exams of the head, facial bones and cervical spine). The CT exam of the cervical spine has been dictated separately. FINDINGS: HEAD: No evidence of intracranial hemorrhage, major vascular territory infarction, focal mass effect or midline shift. Puente to white matter differentiation is preserved. The cavernous carotid arteries are chronically calcified. Old lacunar infarcts of the thalami. Chronic patchy hypoattenuation within supratentorial white matter is compatible with sequela chronic moderate microangiopathy. Mild parenchymal volume loss with commensurate prominence of ventricles and sulci; no hydrocephalus. No calvarial fracture. The visualized paranasal sinuses and mastoid air cells are well aerated. The evaluation of temporomandibular joints is limited by patient motion. FACIAL BONES: The globes and orbital solorzano, including lamina papyracea, are intact. The orbital apex, optic canals, and retrobulbar fat planes are normal. The maxilla and mandible have an intact appearance, although evaluation of the mandible is partially limited by patient motion the right mandibular condyle is well-positioned within its condylar fossa. However, at the left TMJ, the mandibular condyle is anteriorly located. Although no condylar fractures are convincingly seen, the evaluation is quite limited by patient motion. Nasal bones, pterygoid plates and zygomatic arches are normal. The paranasal sinuses are well-aerated and the ostiomeatal units are patent. No air-fluid levels within the paranasal sinuses. There is a right IJ dialysis catheter. CT/CT facial bones wo IV con IMPRESSION: * No intracranial hemorrhage or other acute intracranial pathology compared to the prior head CT from 03/10/2022. * Chronic findings include old lacunar infarcts of the thalami and moderate small vessel ischemic changes within the supratentorial white matter. * The evaluation of the mandible is partially limited by patient's motion. There is asymmetric positioning of mandibular condyles at the TMJs. It is possible that patient has sustained a recent left-sided TMJ dislocation.
--- NOTE | ~2024-01-03 | XR_ITS ---
EXAMINATION: XR KNEE, RIGHT CLINICAL INFORMATION: Fall with laceration yesterday COMPARISON: None available. TECHNIQUE: Four views of the right knee. FINDINGS: The bones are demineralized. Tricompartment spurring, prolific at the patellofemoral compartment with likely severe narrowing, sunrise view not obtained. Moderate medial knee joint narrowing. Small suprapatellar effusion and prepatellar/infrapatellar soft tissue swelling. No fracture or dislocation. Dense vascular calcifications. XR/XR knee RT 3V IMPRESSION: Small suprapatellar effusion, anterior soft tissue swelling and degenerative type changes. No acute bony pathology.
--- NOTE | ~2024-01-03 | CT_ITS ---
EXAMINATION: CT CERVICAL SPINE WITHOUT CONTRAST CLINICAL INFORMATION: History of fall, head strike. COMPARISON: 06/26/2023 TECHNIQUE: Noncontrast CT imaging examination of the cervical spine is performed. The axial images and multiplanar reformatted images are reviewed. This CT examination was performed using dose optimization techniques as appropriate, variously including the following: *Automated exposure control *Adjustment of mA and/or kV according to patient size (this includes techniques or standardized protocols for targeted exams where dose is matched to indication/reason for exam; i.e. extremities or head) *Use of iterative reconstruction technique DLP: 398.3 mGy-cm FINDINGS: No acute findings within the cervical spine compared to 06/26/2023. 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 The craniocervical junction is normal. The dens and atlantodental articulation are intact. No acute fracture, traumatic subluxation or prevertebral edema. No soft tissue hematoma. Multilevel facet arthropathy is present, including severe right-sided facet arthropathy at C4-C5 and bilateral facet arthropathy at C7-T1 (where there is chronic prominent subarticular cystic lucency at the facet joints). There is chronic minimal degenerative anterolisthesis of C7 on T1. Disc degenerative changes within the cervical spine are chronically worst (i.e., severe) at C3-C4 where there is right more so than left sided loss of the disc height, endplate sclerosis and old endplate erosions and/or prominent endplate cystic changes. If there is a history of chronic renal dialysis, then it is possible that some of the arthritic changes are dialysis associated spondyloarthropathy. Chronic mild spinal canal stenosis is caused by the posterior disc osteophyte complex at C6-C7. The findings of multilevel neural foraminal stenosis are the same as observed on 06/26/2023. Bilateral pleural effusions (right larger than left) are partially included in the [id number]. Chronic subarticular sclerosis and subarticular cystic change is present at the partially visualized left sternoclavicular joint. CT/CT cervical spine wo IV con IMPRESSION: * No significant change in abnormalities of the cervical spine compared to 06/26/2023. 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 * No acute fracture, traumatic subluxation or soft tissue hematoma. * Disc degenerative changes in the cervical spine are chronically worst at the C3-C4 and C6-C7 levels. Multilevel facet arthropathy is noted, as well. * Bilateral pleural effusions are partially included in the [id number].
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
[2024-01-03 09:59] VITALS: BP 144/84; BP 145/85; PULSE 72; RESP 18; TEMP 36.8; O2SAT 98; BMI 24.8
[2024-01-03] MEDS: oxyCODONE HCl Immed Release 5 MG TABLET PO (10:43)
--- NOTE | 2024-01-03 10:44 | PC.NURSE ---
Patient states that she has 10/10 pain in her right knee due to falling yesterday while on the 3rd floor. Medicated per NOV.
[2024-01-03] MEDS: Bacitracin Oint 0.9 GM PACKET 1 APPL TOPICAL (13:25)
[2024-01-03 17:27] VITALS: BP 136/84; PULSE 84; RESP 14; TEMP 37; O2SAT 98
== END 2024-01-03 17:28 | disposition home or self-care (01) ==
PROVIDERS: Emergency Provider Emergency Medicine; PCP Internal Medicine
DX: S80.01XA Contusion of right knee, initial encounter (principal); S80.211A Abrasion, right knee, initial encounter; R68.84 Jaw pain; E11.22 Type 2 diabetes mellitus with diabetic chronic kidney disease; I13.2 Hypertensive heart and chronic kidney disease with heart failure and with stage 5 chronic kidney disease, or end stage renal disease; I50.9 Heart failure, unspecified; N18.6 End stage renal disease; Z99.2 Dependence on renal dialysis; W18.30XA Fall on same level, unspecified, initial encounter; Y93.9 Activity, unspecified; Y92.9 Unspecified place or not applicable; Y99.9 Unspecified external cause status
CPT/HCPCS: 70450; 70486; 72125; 73562; 99284

== ENCOUNTER 2024-01-12 23:13 | Inpatient (IN) | payer OTHER, SELFPAY ==
--- NOTE | 2024-01-12 | ECG_ITS ---
Test Reason : CHEST PAIB Blood Pressure : / mmHG Vent. Rate : 072 BPM Atrial Rate : 072 BPM P-R Int : 170 ms QRS Dur : 124 ms QT Int : 478 ms P-R-T Axes : 084 023 224 degrees QTc Int : 523 ms Normal sinus rhythm Left ventricular hypertrophy with QRS widening and repolarization abnormality ( Heriberto product ) Abnormal ECG When compared with ECG of 04-DEC-2023 12:51, Premature ventricular complexes are no longer Present Referred By: Generic ED Physician Electronically Signed By:Nik Lou
--- NOTE | ~2024-01-12 | CT_ITS ---
EXAMINATION: CT head/brain wo IV con CLINICAL INFORMATION: Reason for Exam bilateral loss of vision COMPARISON: CT head without contrast 01/03/2024 TECHNIQUE: Contiguous axial imaging was performed from the skull base to vertex without intravenous contrast. Sagittal and coronal reformatted images were obtained. This CT examination was performed using dose optimization techniques as appropriate, variously including the following: * Automated exposure control * Adjustment of mA and/or kV according to patient size (this includes techniques or standardized protocols for targeted exams where dose is matched to indication/reason for exam; i.e. extremities or head) Use of iterative reconstruction technique DLP: 554 mGy-cm FINDINGS: No acute osseous or soft tissue abnormality. The mastoid air cells and visualized portions of the paranasal sinuses are well aerated. There is no evidence of acute intracranial hemorrhage or territorial infarction. No abnormal mass effect or midline shift is seen. Puente to white matter differentiation is well preserved. No extra-axial fluid collections are identified. No hydrocephalus. Proportional prominence of the ventricles and sulcal spaces related to volume loss. Patchy periventricular and deep white matter hypoattenuation is consistent with moderate small vessel ischemic changes. Chronic bithalamic lacunar infarcts. CT/CT head/brain wo IV con IMPRESSION: No acute intracranial abnormality including hemorrhage, mass effect, hydrocephalus, or acute territorial edematous infarction.
[2024-01-12 23:15] VITALS: BP 140/78; PULSE 76; O2SAT 98
[2024-01-12 23:26] VITALS: BP 158/59; PULSE 71; RESP 17; TEMP 36.7; O2SAT 97; BMI 31.3
[2024-01-12 23:36] LABS: Glucose, Whole Blood 288 mg/dL (60-115)
[2024-01-12 23:44] LABS: MANUAL DIFF FLAG NO
[2024-01-12 23:52] LABS: Basophils Percent Auto 0.3 % (0-2); Eosinophils Absolute Auto 0.2 X10*3/uL (0.0-0.4); Eosinophils Percent Auto 2.5 % (0-4); Hematocrit 30.7 % (37.0-47.0); Hemoglobin 9.7 g/dl (12.0-16.0); Imm Gran Abs Auto 0.04 X10*3/uL (0.00-0.03); Imm Gran Pct Auto 0.5 % (0.0-0.4); Lymphocytes Absolute Auto 1.4 X10*3/uL (1.2-4.9); Mean Corpuscular HGB Conc 31.6 g/dl (31.0-35.0); Mean Corpuscular Hemoglobin 27.5 pg (27.0-33.0); Mean Platelet Volume 11.7 fL (9.4-12.3); Monocytes Absolute Auto 0.7 X10*3/uL (0.1-1.2); Monocytes Percent Auto 7.8 % (2-11); Neutrophils Absolute Auto 6.5 x10*3/uL (2.0-8.3); Neutrophils Percent Auto 72.9 % (45-73); Platelet Count 112 X10*3/uL (160-400); Red Blood Count 3.53 X10*6/uL (4.20-5.50); Red Cell Distribution Width 15.1 % (11.0-16.0); White Blood Count 8.9 X10*3/uL (4.8-10.8)
[2024-01-13 00:01] LABS: Alanine Aminotransferase 12 U/L (0-31); Albumin Level 2.8 g/dL (3.5-5.0); Alkaline Phosphatase 232 U/L (39-117); Anion Gap 13 (12-20); Aspartate Amino Transferase 17 U/L (5-31); Bilirubin Total 0.3 mg/dL (0.0-1.0); Blood Urea Nitrogen 14 mg/dL (9-16); Calcium 7.8 mg/dL (8.4-10.2); Carbon Dioxide 32 mmol/L (22-29); Chloride 98 mmol/L (96-108); Creatinine Clr Calc Pharmacy 24.1; Estimated Glomerular Filt Rate 28; Glucose Random 314 mg/dL (60-115); Potassium 4.6 mmol/L (3.3-5.1); Sodium 138 mmol/L (135-145); Total Protein 6.5 g/dL (6.5-8.0)
[2024-01-13 00:05] LABS: Troponin-I High Sensitivity 24.6 ng/L (<3.5-17.0)
--- NOTE | 2024-01-13 00:09 | MHC.EDTECH ---
Patient biba from home ,ekg taken and was read by Provider ,blood sugar check RN Maricruz aware of result ,Patient was change into hospital attire ,and was hooked up to manager division ,Call peck within Pt reach .
--- NOTE | 2024-01-13 01:02 | ED.GENADULT ---
HPI - General Adult General Chief complaint: Eye Problems Stated complaint: loss of vision, hyperglycemia 420 POC, r chest melinda Time Seen by Provider: 01/12/24 23:45 Source: patient, family and teacher's assistant Mode of arrival: EMS History of Present Illness HPI narrative: 68-year-old female with history diabetes, prior CVA and currently on aspirin and Plavix comes in from EMS and reports waking up with vision loss, she states that earlier in the day she was having difficulty seeing and that it seemed that she was looking through smoke. Patient is on dialysis Monday, Monday, Monday. Related Data Home Medications ?Medication ?Instructions ?Recorded ?Confirmed aspirin 81 mg tablet,delayed 81 mg PO BEDTIME 06/20/21 01/02/24 release atorvastatin 80 mg tablet 80 mg PO BEDTIME 06/20/21 01/02/24 clopidogrel 75 mg tablet 75 mg PO DAILY 06/20/21 01/02/24 insulin glargine 100 unit/mL (3 20 unit subcut BEDTIME 03/25/22 01/02/24 mL) subcutaneous pen (Lantus Solostar U-100 Insulin) magnesium oxide 400 mg (241.3 mg 400 mg PO DAILY 04/20/23 01/02/24 magnesium) tablet blood sugar diagnostic (OneTouch #10 ea 05/25/23 Ultra Test strips) insulin aspart U-100 100 unit/mL See Protocol subcut NEEDED PRN 05/25/23 01/02/24 (3 mL) subcutaneous pen (Novolog bs >200 FlexPen U-100 Insulin aspart) lancets 33 gauge (OneTouch Delica #100 ea 05/25/23 Plus Lancet) pen needle, diabetic 32 gauge x #1,200 ea 05/25/23/32 (Pentips) melatonin 5 mg tablet 9 mg PO BEDTIME PRN Sleep 09/21/23 01/02/24 sevelamer carbonate 800 mg tablet 800 mg PO TIDWM 10/08/23 01/02/24 albuterol sulfate 90 mcg/actuation 2 inh inhalation Q6H PRN shortness 01/02/24 01/02/24 breath activated powder inhaler of breath or wheezing cholecalciferol (vitamin D3) 1,250 1,250 mcg PO QWEEK 01/02/24 mcg (50,000 unit) capsule pantoprazole 40 mg tablet,delayed 40 mg PO DAILY@0630 04/02/24 04/02/24 release Previous Rx's ?Medication ?Instructions ?Recorded carvedilol 12.5 mg tablet 12.5 mg PO BIDWM #60 tabs 10/11/23 valsartan 80 mg tablet 80 mg PO BID #60 tabs 10/11/23 sennosides 8.6 mg tablet (Natural 17.2 mg (2 x 8.6 mg) PO BEDTIME 11/22/23 Senna Laxative) constipation #60 tabs hydrocortisone 1 % topical cream 1 appl topical TID PRN itching 12/15/23 (Preparation H Hydrocortisone) #28.35 grams lidocaine 5 % topical ointment 1 appl topical QID PRN pain #50 12/15/23 grams doxycycline hyclate 100 mg tablet 100 mg PO BID #10 tabs 01/02/24 tramadol 25 mg tablet 25 mg PO Q8H PRN severe pain 01/03/24 (scale score 7-10) #6 tabs Allergies Allergy/AdvReac Type Severity Reaction Status Date / Time latex [LATEX] Allergy Intermediate ITCHY Verified 01/12/24 23:30 Review of Systems Review of Systems: Pertinent positives and negatives as stated in HPI PMFSH Past Medical History Source: nursing notes reviewed Medical History Open wnd toe-complicated Wound, open, hand with or without fingers with complication End stage renal disease on dialysis Congestive heart failure Hyperglycemia due to diabetes mellitus Anemia End stage renal disease Heart failure with reduced ejection fraction Dialysis patient, noncompliant Chronic kidney disease Thrombocytopenia CKD (chronic kidney disease) stage 4, GFR 15-29 ml/min Constipation Ischemic necrosis of finger Normocytic anemia Urinary tract infection due to ESBL Klebsiella Chronic heart failure with preserved ejection fraction (HFpEF) Hypomagnesemia Acute on chronic renal failure Essential hypertension HLD (hyperlipidemia) Non-ST elevated myocardial infarction Diabetes mellitus Nonischemic cardiomyopathy Irritable bowel syndrome with diarrhea Gastroparesis GERD (gastroesophageal reflux disease) Surgical History Status post amputation of finger H/O surgical amputation of finger History of laparoscopic cholecystectomy History of intestinal surgery Hx of eye surgery History of esophagogastroduodenoscopy (EGD) Hx of colonoscopy H/O: hysterectomy Family History Family History Father Lung cancer Mother Diabetes HTN (hypertension) Heart disease Sister Diabetes Heart disease Brother Heart disease Son Diabetes Daughter Diabetes Social History Social History Household Members: Family Household Members Other:: Daughter and grandson Housing: House Do you presently have visiting nurse or other home services: Yes (Grandson is her home health aide) Unable to assess alcohol history related to: Unable to respond and Unknown Alcohol intake: never Comment: report called by previous shift RN Patient Tobacco Use Status: Never used Tobacco Smoked in Last 30 Days: No e-Cigarette/Vaping Use: Never Used Second Hand Smoke Exposure: No Use of substances other than those prescribed or required for medical reasons: No Advance Directives: Yes Advance Directives on File: Yes Advance Directives Date on File: 01/04/23 service: No Current occupational status: disabled Physical Exam ED Vital Signs: Vital Signs - 24 hr 01/12/24 23:26 Temperature 98.0 F Pulse Rate 71 Respiratory Rate 17 Blood Pressure 158/59 H Pulse Oximetry 97 Oxygen Delivery Method Room Air BMI result Body Mass Index 31.3 VITAL SIGNS: Reviewed. GENERAL: Chronically ill, in no acute distress. HEAD: Normocephalic/atraumatic EYES: PERRLA, EOMI, but on provocation there does not appear to be any reaction to suggest resolution of vision EARS: Ext canals without abnormality NOSE: Nares patent bilateral OROPHARYNX: no oral lesions noted, posterior pharynx clear NECK: Supple, no adenopathy LUNGS: Normal breath sounds. No adventitious sounds or accessory muscle use. SpO2<97> CARDIOVASCULAR: Regular rate and rhythm without noted murmurs ABDOMEN: Soft, non-tender, non-distended with bowel sounds. MUSCULOSKELETAL: No tenderness, deformities, or effusions noted on gross inspection. EXTREMITIES: No cyanosis, clubbing or edema. SKIN: Inspection of the skin reveals no rashes Left BKA NEUROLOGIC: Alert and oriented x 4. Strength and sensation to light touch were grossly intact x 4. BEDSIDE OCULAR ULTRASOUND: Good EOMI, no evidence to suggest retinal detachment Medical Decision Making Medical Decision Making MDM Narrative: 68-year-old female with history and clinical presentation of poorly-controlled diabetes, patient is ESRD on dialysis Monday, Monday, Monday. Reviewed all investigations and hematologic indices are chronically stable without leukocytosis or left shift, patient has chronically stable normocytic anemia and thrombocytopenia. Chemistry indices demonstrate underlying CKD/ESRD and is known to be on dialysis Monday/Monday/Monday, patient is also noted to be hyperglycemic without evidence of DKA or HHS. I sensitivity troponin is chronically detectable without acute EKG changes. Bedside ultrasound does not demonstrate retinal detachment but there is good EOMI. On further collateral information from daughter she reports that she called at 2250. I discussed case with inpatient hospitalist who accepts admission and agrees with CT minus as CT angio unlikely to identify an LVO that would explain bilateral visual loss. Differential Diagnosis Differential Diagnoses: The differential diagnosis associated with the presentation includes Please see the discussion above Admission/Observation Consideration of admission/observation: Escalation of care including admission/observation considered Please see the discussion above Consult Healthcare Provider Management of the patient was discussed with: Hospitalist Please see the discussion above Lab Data MDM Lab Attestation statement: I reviewed the patient's lab results. Please see the discussion above 01/12/24 23:39 01/12/24 23:39 Labs: Lab Results 01/12/24 01/12/24 Range/Units 23:27 23:39 WBC 8.9 (4.8-10.8) X10*3/uL RBC 3.53 L (4.20-5.50) X10*6/uL Hgb 9.7 L (12.0-16.0) g/dl Hct 30.7 L (37.0-47.0) % MCV 87.0 (80.0-98.0) fL MCH 27.5 (27.0-33.0) pg MCHC 31.6 (31.0-35.0) g/dl RDW 15.1 (11.0-16.0) % Plt Count 112 L D (160-400) X10*3/uL MPV 11.7 (9.4-12.3) fL Immature Gran % (Auto) 0.5 H (0.0-0.4) % Neut % (Auto) 72.9 (45-73) % Lymph % (Auto) 16.0 L (20-40) % Glascock % (Auto) 7.8 (2-11) % Eos % (Auto) 2.5 (0-4) % Baso % (Auto) 0.3 (0-2) % Lymph # (Auto) 1.4 (1.2-4.9) X10*3/uL Glascock # (Auto) 0.7 (0.1-1.2) X10*3/uL Eos # (Auto) 0.2 (0.0-0.4) X10*3/uL Baso # (Auto) 0.0 (0.0-0.2) X10*3/uL Abs Immat Gran (auto) 0.04 H (0.00-0.03) X10*3/uL Absolute Neuts (auto) 6.5 (2.0-8.3) x10*3/uL Absolute Nucleated RBC 0.000 (0.0-0.012) X10*3/uL Nucleated RBC % (auto) 0.0 (0.0-0.2) /100WBC Sodium 138 (135-145) mmol/L Potassium 4.6 (3.3-5.1) mmol/L Chloride 98 (96-108) mmol/L Carbon Dioxide 32 H (22-29) mmol/L Anion Gap 13 (12-20) BUN 14 (9-16) mg/dL Creatinine 1.77 H (0.5-1.4) mg/dL Estim Creat Clear Calc 24.1 Estimated GFR 28 POC Glucose 288 H (60-115) mg/dL Random Glucose 314 H (60-115) mg/dL Calcium 7.8 L (8.4-10.2) mg/dL Total Bilirubin 0.3 (0.0-1.0) mg/dL AST 17 (5-31) U/L ALT 12 (0-31) U/L Alkaline Phosphatase 232 H (39-117) U/L Troponin I High Sens 24.6 H (<3.5-17.0) ng/L Total Protein 6.5 (6.5-8.0) g/dL Albumin 2.8 L (3.5-5.0) g/dL Independent Interpretation I performed an independent interpretation of an: EKG Interpretation: Normal sinus rhythm, HR-72, no STEMI, ST changes are chronic on comparison to prior EKG, NV within normal limits. External Record Review External record reviewed: Outpatient record, Prior outpatient labs and Prior outpatient radiology Chronic Conditions Patient?s care impacted by: Diabetes, Hypertension and Other ESRD on dialysis Critical Care Time Critical Care Time Critical Care Time: Yes Total Critical Care Time: 60 Attestation: I personally attest to this time spent taking care of the patient. Discharge Plan Discharge Clinical Impression: Bilateral visual loss Patient Disposition: Admitted As Inpatient Prescriptions: No Action atorvastatin 80 mg tablet 80 mg PO BEDTIME clopidogrel 75 mg tablet 75 mg PO DAILY aspirin 81 mg tablet,delayed release (DR/EC) 81 mg PO BEDTIME insulin glargine [Lantus Solostar U-100 Insulin] 100 unit/mL (3 mL) insulin pen 20 unit subcut BEDTIME magnesium oxide 400 mg (241.3 mg magnesium) tablet 400 mg PO DAILY sevelamer carbonate 800 mg tablet 800 mg PO TIDWM carvedilol 12.5 mg Tablet 12.5 mg PO BIDWM Qty: 60 1RF Protocol: Hold for SBP/HR < HOLD for SBP < : 90 HOLD for HR < : 60 valsartan 80 mg Tablet 80 mg PO BID Qty: 60 1RF Protocol: Hold for SBP< HOLD for SBP < : 90 lidocaine 5 % ointment 1 appl topical QID PRN (Reason: pain) Qty: 50 0RF Rx Instructions: applied to anal area 15 minutes prior to attempted bowel movement hydrocortisone [Preparation H Hydrocortisone] 1 % cream 1 appl topical TID PRN (Reason: itching) Qty: 28.35 0RF melatonin 5 mg tablet 9 mg PO BEDTIME PRN (Reason: Sleep) cholecalciferol (vitamin D3) 1,250 mcg (50,000 unit) capsule 1,250 mcg PO QWEEK pantoprazole 40 mg tablet,delayed release (DR/EC) 40 mg PO DAILY@0630 Rx Instructions: take one tablet half an hour before breakfast albuterol sulfate 90 mcg/actuation aerosol powdr breath activated 2 inh inhalation Q6H PRN (Reason: shortness of breath or wheezing) doxycycline hyclate 100 mg tablet 100 mg PO BID Qty: 10 0RF tramadol 25 mg tablet 25 mg PO Q8H PRN (Reason: severe pain (scale score 7-10)) Qty: 6 0RF sennosides [Natural Senna Laxative] 8.6 mg tablet 17.2 mg PO BEDTIME Qty: 60 3RF (DME) lancets [OneTouch Delica Plus Lancet] 33 gauge misc See Rx Instructions .ROUTE TID Qty: 100 Rx Instructions: As directed (DME) pen needle, diabetic [Pentips] 32 gauge x 532 needle See Rx Instructions .ROUTE DIRECTED Qty: 1200 Rx Instructions: As directed (DME) OneTouch Ultra Test Strip See Rx Instructions .ROUTE TID Qty: 10 Rx Instructions: As directed insulin aspart U-100 [Novolog FlexPen U-100 Insulin] 100 unit/mL (3 mL) insulin pen See Protocol subcut NEEDED PRN (Reason: bs >200) Protocol: Insulin Correction Scale Less than or equal to 110 ---- Give (units): 0 111 to 150 Give (units): 0 151 to 200 Give (units): 2 201 to 250 Give (units): 4 251 to 300 Give (units): 6 301 to 350 Give (units): 8 Greater than 350 Give (units): 10 Call MD if Blood Glucose > : 350 Rx Instructions: 8-12 units SLIDING SCALE Print Language: Thai
--- NOTE | 2024-01-13 02:15 | P.HPHOSP_ITS ---
History of Present Illness Date of Service: 01/13/24 Chief Complaint: Vision loss This is a 68-year-old female with pertinent history of ESRD on hemodialysis (M/W/F), congestive heart failure with reduced ejection fraction, insulin- dependent type 2 diabetes mellitus, mixed hyperlipidemia, history of CVA, essential hypertension, peripheral arterial disease status post left AKA, mood disorder who presents to the emergency department for evaluation of vision changes. Patient states she woke up on the day of presentation with vision loss. Initially it seemed that she was seeing through smoke but it progressed to bilateral vision loss which was painless. No improvement in vision changes. No motor extremity deficit, no facial droop. Patient denies fever, chills, chest discomfort, palpitations, shortness of breath, abdominal pain, changes in urinary or bowel habits. In the emergency department, CT head without any acute abnormality Review of Systems 2 Constitutional: Constitutional: Reports no additional constitutional complaints Eyes: Eyes: Reports change in vision and Reports loss of vision Cardiovascular: Cardiovascular: Reports no additional cardiovascular complaints Respiratory: Respiratory: Reports no additional respiratory complaints Gastrointestinal: Gastrointestinal: Reports no additional gastrointestinal complaints Genitourinary: Genitourinary: Reports no additional female genitourinary complaints Neurologic: Reports loss of vision PMFSH Medical History Open wnd toe-complicated Wound, open, hand with or without fingers with complication End stage renal disease on dialysis Congestive heart failure Hyperglycemia due to diabetes mellitus Anemia End stage renal disease Heart failure with reduced ejection fraction Dialysis patient, noncompliant Chronic kidney disease Thrombocytopenia CKD (chronic kidney disease) stage 4, GFR 15-29 ml/min Constipation Ischemic necrosis of finger Normocytic anemia Urinary tract infection due to ESBL Klebsiella Chronic heart failure with preserved ejection fraction (HFpEF) Hypomagnesemia Acute on chronic renal failure Essential hypertension HLD (hyperlipidemia) Non-ST elevated myocardial infarction Diabetes mellitus Nonischemic cardiomyopathy Irritable bowel syndrome with diarrhea Gastroparesis GERD (gastroesophageal reflux disease) Family History Father Lung cancer Mother Diabetes HTN (hypertension) Heart disease Sister Diabetes Heart disease Brother Heart disease Son Diabetes Daughter Diabetes Surgical History Status post amputation of finger H/O surgical amputation of finger History of laparoscopic cholecystectomy History of intestinal surgery Hx of eye surgery History of esophagogastroduodenoscopy (EGD) Hx of colonoscopy H/O: hysterectomy Social History Household Members: Family Household Members Other:: Daughter and grandson Housing: House Do you presently have visiting nurse or other home services: Yes (Grandson is her home health aide) Unable to assess alcohol history related to: Unable to respond and Unknown Alcohol intake: never Comment: report called by previous shift RN Patient Tobacco Use Status: Never used Tobacco Smoked in Last 30 Days: No e-Cigarette/Vaping Use: Never Used Second Hand Smoke Exposure: No Use of substances other than those prescribed or required for medical reasons: No Advance Directives: Yes Advance Directives on File: Yes Advance Directives Date on File: 01/04/23 service: No Current occupational status: disabled Meds Home Medications ?Medication ?Instructions ?Recorded ?Confirmed ?Last Taken ?Type aspirin 81 mg tablet,delayed 81 mg PO BEDTIME 06/20/21 01/02/24 09/20/23 History release atorvastatin 80 mg tablet 80 mg PO BEDTIME 06/20/21 01/02/24 09/20/23 History clopidogrel 75 mg tablet 75 mg PO DAILY 06/20/21 01/02/24 09/20/23 History insulin glargine 100 unit/mL (3 20 unit subcut BEDTIME 03/25/22 01/02/24 09/20/23 History mL) subcutaneous pen (Lantus Solostar U-100 Insulin) magnesium oxide 400 mg (241.3 mg 400 mg PO DAILY 04/20/23 01/02/24 09/20/23 History magnesium) tablet blood sugar diagnostic (OneTouch #10 ea 05/25/23 Unknown History Ultra Test strips) insulin aspart U-100 100 unit/mL See Protocol subcut NEEDED PRN 05/25/23 01/02/24 09/20/23 History (3 mL) subcutaneous pen (Novolog bs >200 FlexPen U-100 Insulin aspart) lancets 33 gauge (OneTouch Delica #100 ea 05/25/23 Unknown History Plus Lancet) pen needle, diabetic 32 gauge x #1,200 ea 05/25/23 Unknown History (Pentips) melatonin 5 mg tablet 9 mg PO BEDTIME PRN Sleep 09/21/23 01/02/24 09/20/23 History sevelamer carbonate 800 mg tablet 800 mg PO TIDWM 10/08/23 01/02/24 Unknown History albuterol sulfate 90 mcg/actuation 2 inh inhalation Q6H PRN shortness 01/02/24 01/02/24 Unknown History breath activated powder inhaler of breath or wheezing cholecalciferol (vitamin D3) 1,250 1,250 mcg PO QWEEK 01/02/24 Unknown History mcg (50,000 unit) capsule pantoprazole 40 mg tablet,delayed 40 mg PO DAILY@0630 01/02/24 01/02/24 Unknown History release Physical Exam 2 Vital Signs and Narrative: Vital Signs: Last Vital Signs Temp 98.0 F 01/12/24 23:26 Pulse 71 01/12/24 23:26 Resp 17 01/12/24 23:26 BP 158/59 H 01/12/24 23:26 Pulse Ox 97 01/12/24 23:26 O2 Del Method Room Air 01/12/24 23:26 BMI result Body Mass Index 31.3 Elderly female lying in bed in mild distress Neck supple Regular rate and rhythm, S1-S2 heard No wheezes or crackles Abdomen soft nontender, no guarding, no rigidity, no CVA tenderness Patient is awake, alert and oriented to self, place, time and person ; no upper extremity pronator drift, strength right lower extremity normal, no facial droop Psych: Normal mood Left AKA Results Labs 01/12/24 23:39 01/12/24 23:39 Labs: Laboratory Results - last 24 hr 01/12/24 01/12/24 23:27 23:39 MCV 87.0 MCH 27.5 MCHC 31.6 RDW 15.1 Plt Count 112 L D MPV 11.7 Immature Gran % (Auto) 0.5 H Neut % (Auto) 72.9 Lymph % (Auto) 16.0 L Schley % (Auto) 7.8 Eos % (Auto) 2.5 Baso % (Auto) 0.3 Lymph # (Auto) 1.4 Schley # (Auto) 0.7 Eos # (Auto) 0.2 Baso # (Auto) 0.0 Abs Immat Gran (auto) 0.04 H Absolute Neuts (auto) 6.5 Absolute Nucleated RBC 0.000 Nucleated RBC % (auto) 0.0 Anion Gap 13 Estim Creat Clear Calc 24.1 Estimated GFR 28 POC Glucose 288 H Random Glucose 314 H Calcium 7.8 L Total Bilirubin 0.3 AST 17 ALT 12 Alkaline Phosphatase 232 H Troponin I High Sens 24.6 H Total Protein 6.5 Albumin 2.8 L Imaging Radiologist's Impressions: Impressions Head CT 01/13/24 01:40 IMPRESSION: No acute intracranial abnormality including hemorrhage, mass effect, hydrocephalus, or acute territorial edematous infarction. Assessment and Plan (1) Bilateral visual loss: Status: Acute Plan This is a 68-year-old female with pertinent history of ESRD on hemodialysis (Monday, Monday), congestive heart failure with reduced ejection fraction, insulin-dependent type 2 diabetes mellitus, mixed hyperlipidemia, essential hypertension, history of CVA, mood disorder who presents to the emergency department for evaluation of dyspnea. #. Bilateral vision loss: Will admit patient with cardiac monitoring and obtaining MRI in a.m.. Consulted Neurology, appreciate assistance. Further workup based on MRI results. #. ESRD on hemodialysis: Underwent hemodialysis session on 01/11. Will be due for hemodialysis session on 01/14 #.? Insulin-dependent type 2 diabetes mellitus with hyperglycemia: Initiating basal bolus insulin regimen #.? Essential hypertension: Continue home antihypertensives #.? History of CVA: on plavix, aspirin and high-intensity statin #. Mood disorder. Continue mood stabilizers #. Obesity: Counseled regarding diet and weight loss Med rec pending DVT prophylaxis: Heparin Full code NPO until patient passes swallow screen Admit as inpatient and will require two night minimum hospital stay for evaluation of vision loss (as above), which is not possible in a lesser acute setting. Specialist consult pending Quality Stroke Does the patient have a stroke diagnosis?: No VTE Prior VTE?: No VTE Risk Level:: Medical - moderate - high VTE Device Contraindication: Treatment Not Indicated VTE Drug Contraindication: N/A - Med Ordered
[2024-01-13 02:22] VITALS: BP 148/43; PULSE 65; RESP 17; TEMP 36.6; O2SAT 95
--- NOTE | 2024-01-13 02:30 | MHC.EDTECH ---
0200 rounding done ,vitals taken ,blood sugar check ,RN aware of blood sugar result ,,Patient belonging list done ,Patient was reposition and boosted up in bed ,Patient does not want to remove her shorts ,rn aware .
[2024-01-13 02:40] LABS: Glucose, Whole Blood 157 mg/dL (60-115)
[2024-01-13] MEDS: Insulin Glargine,Hum.rec.anlog 100 UNIT/ML 10 ML VIAL 14 UNIT SUBCUT (02:54)
[2024-01-13] MEDS: Heparin Sodium,Porcine 5,000 UNIT/ML VIAL 5000 UNIT SUBCUT ×3 (02:54→20:23)
[2024-01-13 03:54] VITALS: BP 124/43; PULSE 63; RESP 16; TEMP 36.6
--- NOTE | 2024-01-13 03:57 | MHC.EDTECH ---
0400 rounding done ,Patient awake and is sitting up in bed ,Vitals taken ,warm blanket given ,patient is comfortable ,no apparent distress noted ,will continue to monitor ,Call peck within Pt reach .
--- NOTE | 2024-01-13 06:00 | MHC.EDTECH ---
0600 rounding done Patient awake ,vitals taken ,am labs drawn by this pct ,Patient comfortable ,no apparent distress noted ,Patient is NPO until Swolling evel is done ,Patient was reposition and boosted up in bed ,Call peck within Pt reach .
[2024-01-13 06:06] LABS: Hematocrit 32.6 % (37.0-47.0); Hemoglobin 10.2 g/dl (12.0-16.0); Mean Corpuscular HGB Conc 31.3 g/dl (31.0-35.0); Mean Corpuscular Hemoglobin 27.5 pg (27.0-33.0); Mean Corpuscular Volume 87.9 fL (80.0-98.0); Mean Platelet Volume 10.3 fL (9.4-12.3); Platelet Count 122 X10*3/uL (160-400); Red Blood Count 3.71 X10*6/uL (4.20-5.50); White Blood Count 10.5 X10*3/uL (4.8-10.8)
[2024-01-13 06:21] LABS: Anion Gap 13 (12-20); Blood Urea Nitrogen 16 mg/dL (9-16); Carbon Dioxide 32 mmol/L (22-29); Chloride 100 mmol/L (96-108); Creatinine Clr Calc Pharmacy 21.6; Estimated Glomerular Filt Rate 25; Glucose Random 41 mg/dL (60-115); Potassium 3.9 mmol/L (3.3-5.1); Sodium 141 mmol/L (135-145)
[2024-01-13] MEDS: Glucose Gel 15 GM GEL..GRAM. PO ×3 (06:28→10:19)
--- NOTE | 2024-01-13 06:48 | PC.NURSE ---
Critical result received for: Blood glucose 41. Pt given 15 gm of glucose gel. POC re checked in 15 min with glucose improvement to 64. [place] text sent to Dr. Stafford. Pt is currently aox4 with no complaints and no signs distress. Monitoring is ongoing.
[2024-01-13 06:50] LABS: Glucose, Whole Blood 64 mg/dL (60-115)
[2024-01-13 07:33] VITALS: BP 151/56; PULSE 64; RESP 16; TEMP 36.4; O2SAT 99
[2024-01-13 07:38] LABS: Glucose, Whole Blood 89 mg/dL (60-115)
--- NOTE | 2024-01-13 08:40 | PHA.MEDREC ---
Pharmacy Consult ? Medication Reconciliation Pharmacy has completed the medication reconciliation. used claims and recent discharge summary to complete med rec.
[2024-01-13 09:55] LABS: Glucose, Whole Blood 53 mg/dL (60-115)
--- NOTE | 2024-01-13 10:36 | PM.NEUROCN ---
History of Present Illness Data of Consult Service Date: 01/13/24 Primary Care Provider: Alexys Avila MD HPI Reason for consult: Blindness 68-year-old female with pertinent history of ESRD on hemodialysis (M/W/F), congestive heart failure with reduced ejection fraction, insulin-dependent type 2 diabetes mellitus, mixed hyperlipidemia who came to hospital with complaints of new onset of blindness. There was no complaint of headache or any focal weakness or speech or language difficulty. There was no history of trauma. Review of Systems Review of Systems: No recent headache or cold or flu-like illness PMFSH Past Medical History Medical History Open wnd toe-complicated Wound, open, hand with or without fingers with complication End stage renal disease on dialysis Congestive heart failure Hyperglycemia due to diabetes mellitus Anemia End stage renal disease Heart failure with reduced ejection fraction Dialysis patient, noncompliant Chronic kidney disease Thrombocytopenia CKD (chronic kidney disease) stage 4, GFR 15-29 ml/min Constipation Ischemic necrosis of finger Normocytic anemia Urinary tract infection due to ESBL Klebsiella Chronic heart failure with preserved ejection fraction (HFpEF) Hypomagnesemia Acute on chronic renal failure Essential hypertension HLD (hyperlipidemia) Non-ST elevated myocardial infarction Diabetes mellitus Nonischemic cardiomyopathy Irritable bowel syndrome with diarrhea Gastroparesis GERD (gastroesophageal reflux disease) Family History Family History Father Lung cancer Mother Diabetes HTN (hypertension) Heart disease Sister Diabetes Heart disease Brother Heart disease Son Diabetes Daughter Diabetes Surgical History Surgical History Status post amputation of finger H/O surgical amputation of finger History of laparoscopic cholecystectomy History of intestinal surgery Hx of eye surgery History of esophagogastroduodenoscopy (EGD) Hx of colonoscopy H/O: hysterectomy Social History Social History Household Members: Family Household Members Other:: Daughter and grandson Housing: House Do you presently have visiting nurse or other home services: Yes (Grandson is her home health aide) Unable to assess alcohol history related to: Unable to respond and Unknown Alcohol intake: never Comment: report called by previous shift RN Patient Tobacco Use Status: Never used Tobacco Smoked in Last 30 Days: No e-Cigarette/Vaping Use: Never Used Second Hand Smoke Exposure: No Use of substances other than those prescribed or required for medical reasons: No Advance Directives: Yes Advance Directives on File: Yes Advance Directives Date on File: 01/04/23 Nutrition Risks: No Nutritional Risk service: No Current occupational status: disabled Meds Allergies Allergy/AdvReac Type Severity Reaction Status Date / Time No Known Allergies Allergy Verified 01/13/24 02:53 Active Medications: Current Medications Acetaminophen (Acetaminophen 325 Mg Tablet) 650 mg PO Q6H PRN PRN Reason: Pain, Mild (Pain Scale 1-3) Glucose (Glucose Gel 15 Gm Gel..Gram.) 15 gm PO Q15M PRN; Protocol PRN Reason: per Hypoglycemia Standing Ord. Last Admin: 01/13/24 10:19 Dose: 15 gm Heparin Sodium (Porcine) (Heparin Sodium,Porcine 5,000 Unit/Ml Vial) 5,000 unit SUBCUT BID [facility] Last Admin: 01/13/24 02:54 Dose: 5,000 unit Dextrose (D10) 250 mls @ 750 mls/hr IV Q15M PRN; Protocol PRN Reason: per Hypoglycemia Standing Ord. Insulin Glargine (Insulin Glargine,Hum.Rec.Anlog 100 Unit/Ml 10 Ml Vial) 10 unit SUBCUT BEDTIME [facility] Melatonin (Melatonin 3 Mg Tablet) 6 mg PO BEDTIME PRN PRN Reason: Insomnia Ondansetron HCl (Ondansetron Hcl 4 Mg/2 Ml Vial) 4 mg IVPUSH Q8H PRN PRN Reason: Nausea and Vomiting Sodium Chloride (0.9 % Sodium Chloride Flush 3 Ml Syringe) 3 ml IVFLUSH QSHIFT [facility] Last Admin: 01/13/24 08:21 Dose: Not Given Home Medications ?Medication ?Instructions ?Recorded ?Confirmed ?Last Taken ?Type aspirin 81 mg tablet,delayed 81 mg PO BEDTIME 06/20/21 01/13/24 09/20/23 History release atorvastatin 80 mg tablet 80 mg PO BEDTIME 06/20/21 01/13/24 09/20/23 History clopidogrel 75 mg tablet 75 mg PO DAILY 06/20/21 01/13/24 09/20/23 History insulin glargine 100 unit/mL (3 20 unit subcut BEDTIME 03/25/22 01/13/24 09/20/23 History mL) subcutaneous pen (Lantus Solostar U-100 Insulin) magnesium oxide 400 mg (241.3 mg 400 mg PO DAILY 04/20/23 01/13/24 09/20/23 History magnesium) tablet blood sugar diagnostic (OneTouch #10 ea 05/25/23 Unknown History Ultra Test strips) insulin aspart U-100 100 unit/mL See Protocol subcut NEEDED PRN 05/25/23 01/13/24 09/20/23 History (3 mL) subcutaneous pen (Novolog bs >200 FlexPen U-100 Insulin aspart) lancets 33 gauge (OneTouch Delica #100 ea 05/25/23 Unknown History Plus Lancet) pen needle, diabetic 32 gauge x #1,200 ea 05/25/23 Unknown History (Pentips) melatonin 5 mg tablet 5 - 10 mg PO BEDTIME PRN Sleep 09/21/23 01/13/24 09/20/23 History sevelamer carbonate 800 mg tablet 800 mg PO TIDWM 10/08/23 01/13/24 Unknown History albuterol sulfate 90 mcg/actuation 2 inh inhalation Q6H PRN shortness 01/02/24 01/13/24 Unknown History breath activated powder inhaler of breath or wheezing cholecalciferol (vitamin D3) 1,250 1,250 mcg PO QWEEK 01/02/24 01/13/24 Unknown History mcg (50,000 unit) capsule pantoprazole 40 mg tablet,delayed 40 mg PO DAILY@0630 01/02/24 01/13/24 Unknown History release Physical Exam Vital Signs: Vital Signs: Last Vital Signs Temp 97.6 F 01/13/24 07:33 Pulse 64 01/13/24 07:33 Resp 16 01/13/24 07:33 BP 151/56 H 01/13/24 07:33 Pulse Ox 99 01/13/24 07:33 O2 Del Method Room Air 01/13/24 07:33 O2 Flow Rate 95 01/13/24 03:54 BMI result Body Mass Index 31.3 Neuro: Other: Alert and awake with normal spontaneity of speech fluency comprehension and affect. Into was performed with the help of an recreation manager. Pupils were about 3 mm. She could not see fingers close to her eyes or see colors from each eye. Face was symmetrical. There was no focal weakness. Plantars were flexor. Results Labs 01/13/24 05:58 01/13/24 05:58 Labs: Short CBC 01/12/24 01/13/24 Range/Units 23:39 05:58 WBC 8.9 10.5 (4.8-10.8) X10*3/uL Hgb 9.7 L 10.2 L (12.0-16.0) g/dl Hct 30.7 L 32.6 L (37.0-47.0) % Plt Count 112 L D 122 L (160-400) X10*3/uL BMP 01/12/24 01/13/24 23:39 05:58 Sodium 138 141 Potassium 4.6 3.9 Chloride 98 100 Carbon Dioxide 32 H 32 H BUN 14 16 Creatinine 1.77 H 1.98 H Calcium 7.8 L 8.0 L Liver Function 01/12/24 Range/Units 23:39 Total Bilirubin 0.3 (0.0-1.0) mg/dL AST 17 (5-31) U/L ALT 12 (0-31) U/L Alkaline Phosphatase 232 H (39-117) U/L Albumin 2.8 L (3.5-5.0) g/dL Head CT without contrast did not reveal any acute abnormality. Assessment and Plan (1) Bilateral visual loss: Status: Acute Bilateral visual loss that seen peripheral in nature, which means that the pathologies probably in optic nerve area. It still is relatively unusual to have bilateral visual loss unless she already had problem with 1 I and then the 2nd 1. In any case, there is no evidence of acute stroke and overall examination is not suggestive of a stroke. I recommend sed rate and CRP to rule out any tendency for inflammation or temporal arteritis. If this numbers are high, treatment with steroid is recommended. 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 Procedures Date of Service Date of Service: 01/13/24
[2024-01-13 11:20] LABS: C Reactive Protein 0.12 mg/dL (< or = 0.50)
[2024-01-13 11:53] LABS: Erythrocyte Sedimentation Rate 29 MM/HR (0-20)
--- NOTE | 2024-01-13 12:37 | P.EN_ITS ---
Event Note Date of Service: 01/13/24 Event Note: 68-year-old female with pertinent history of ESRD on hemodialysis (Monday, Monday), congestive heart failure with reduced ejection fraction, insulin- dependent type 2 diabetes mellitus, mixed hyperlipidemia, essential hypertension, history of CVA, mood disorder who presents to the emergency department for evaluation of acute rights eye vision loss patient has chronic left eye decreased vision as per patient status post bilateral eye surgery Question for cataract versus laser procedure. #. Bilateral vision loss: Chronic left eye vision loss, now complaining of right eye vision loss, without associated speech impairment, weakness ,no numbness, no PUENTE, CT head unremarkable. Seen by Neurology patient noted to have no evidence of acute stroke, they recommended sed rate and CRP and outpatient follow-up with Ophthalmology. ESR 29 and CRP 0.12, therefore less likely temporal arteritis. #. ESRD on hemodialysis: Underwent hemodialysis session on 01/11. On hemodialysis Wednesdays and Fridays , will consult nephrology. #.? Insulin-dependent type 2 diabetes mellitus with hyperglycemia: Initially noted to have hyperglycemia treated with Lantus subsequently noted to have hypoglycemia , will place on insulin sliding scale and decrease dose of Lantus follow blood sugars closely. #.? Essential hypertension: Resume valsartan b.i.d. #.? History of CVA: Continue plavix, aspirin and high-intensity statin #. Mood disorder. Continue mood stabilizers #. Class 1 Obesity: Counseled regarding diet and weight loss Med rec completed DVT prophylaxis: Heparin Full code Patient will require continued inpatient hospitalization for hypoglycemia and acute vision loss. Time Spent With Patient Time: Total time managing care of this patient today ____ minutes.
[2024-01-13] MEDS: Sevelamer Carbonate Tablet 800 MG TABLET PO ×2 (13:38→18:07)
[2024-01-13 13:59] LABS: Glucose, Whole Blood 86 mg/dL (60-115)
[2024-01-13 13:59] LABS: Glucose, Whole Blood 71 mg/dL (60-115)
[2024-01-13 13:59] LABS: Glucose, Whole Blood 66 mg/dL (60-115)
[2024-01-13 13:59] LABS: Glucose, Whole Blood 96 mg/dL (60-115)
[2024-01-13 16:07] VITALS: BP 167/58; PULSE 68; RESP 14; TEMP 36.9; O2SAT 99
[2024-01-13 16:34] LABS: Glucose, Whole Blood 135 mg/dL (60-115)
[2024-01-13] MEDS: carvediloL 12.5 MG TABLET PO (18:07)
[2024-01-13 19:01] VITALS: BP 150/64; PULSE 71; RESP 16; TEMP 36.3; O2SAT 97
[2024-01-13 19:51] LABS: Glucose, Whole Blood 137 mg/dL (60-115)
[2024-01-13] MEDS: Aspirin Enteric Coated 81 MG TABLET.DR PO (20:23)
[2024-01-13] MEDS: Atorvastatin Calcium 80 MG TABLET PO (20:23)
[2024-01-13] MEDS: Insulin Glargine,Hum.rec.anlog 100 UNIT/ML 10 ML VIAL 10 UNIT SUBCUT (20:23)
[2024-01-13] MEDS: Valsartan 80 MG TABLET PO (20:23)
[2024-01-13] MEDS: Sennosides 8.6 MG TABLET 17.2 MG PO (20:23)
[2024-01-13] MEDS: Melatonin 3 MG TABLET 6 MG PO (20:28)
[2024-01-14] VITALS (7 sets, daily range): BP systolic 138–182; BP diastolic 65–88; PULSE 63–78; RESP 16–20; TEMP 36.1–37.1; O2SAT 93–97; BMI 31.7
[2024-01-14] MEDS: 0.9 % Sodium Chloride Flush 3 ML SYRINGE IVFLUSH ×3 (00:01→17:23)
[2024-01-14 03:55] LABS: Glucose, Whole Blood 53 mg/dL (60-115)
[2024-01-14] MEDS: Acetaminophen 325 MG TABLET 650 MG PO ×2 (03:58→21:21)
[2024-01-14 04:12] LABS: Glucose, Whole Blood 57 mg/dL (60-115)
[2024-01-14 04:28] LABS: Glucose, Whole Blood 89 mg/dL (60-115)
--- NOTE | 2024-01-14 04:49 | PC.NURSE ---
Pt with BG of 53 at 0400. Pt was asymptomatic. Pt given OJ and crackers, BG rechecked fifteen minutes later and was 57. Pt given more juice and crackers, BG rechecked in another fifteen minutes and was 89. Dr. Stafford made aware via [employer]. No new orders at this time.
[2024-01-14 07:26] LABS: Glucose, Whole Blood 92 mg/dL (60-115)
[2024-01-14] MEDS: Valsartan 80 MG TABLET PO ×2 (08:48→21:21)
[2024-01-14] MEDS: Heparin Sodium,Porcine 5,000 UNIT/ML VIAL 5000 UNIT SUBCUT ×2 (08:48→21:20)
[2024-01-14] MEDS: carvediloL 12.5 MG TABLET PO ×2 (08:48→17:21)
[2024-01-14] MEDS: Sevelamer Carbonate Tablet 800 MG TABLET PO ×3 (08:49→17:21)
[2024-01-14] MEDS: Magnesium Oxide 400 MG TABLET PO (08:49)
[2024-01-14] MEDS: Clopidogrel Bisulfate 75 MG TABLET PO (08:49)
--- NOTE | 2024-01-14 09:59 | MHC.CM.PN ---
IMM 01/13. Met with pt with assistance from renal dialysis rn. Pt lives at home with her daughter and grandson. Pt goes to [facility] for HD M-W-F via [facility] transport. Pt uses an electric wheelchair. Pts daughter can transport her home vs may need assistance if daughter unable. HCP on file and verified. PCP: Dr. Alexys Avila
--- NOTE | 2024-01-14 10:23 | HO.PM.IMPN ---
Subjective Subjective Date of Service: 01/14/24 Interval History: Feels right eye vision is a little better can see from right eye but blurred, left eye vision loss for several years, history of bilateral cataract surgery follows with outpatient Ophthalmology in [place] but has not seen them in last several months due to lack of transportation. Tolerating diet no nausea, no vomiting, no abdominal pain or diarrhea. History obtained via [employer]. Review of Systems All other system reviewed and negative. Physical Exam Vital Signs: Vital Signs: Last Vital Signs Temp 97.1 F 01/14/24 07:10 Pulse 68 01/14/24 07:10 Resp 16 01/14/24 07:10 BP 138/65 01/14/24 07:10 Pulse Ox 97 01/14/24 07:10 O2 Del Method Room Air 01/14/24 07:10 O2 Flow Rate 95 01/13/24 03:54 BMI result Body Mass Index 31.7 Const: Other: General ? Awake alert, resting comfortably in no acute distress.? Eyes pupils equal, right eye able to see and count fingers but blurry. Neck? supple no JVD. CVS? regular rate rhythm, Respiratory lungs clear to auscultation, no respiratory distress, no wheeze, no rhonchi. Gastrointestinal abdomen soft, non tender, bowel sounds audible, no guarding , no rigidity. Extremities? 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 Skin no rash psych appropriate affect Objective Data Active Medications Acetaminophen (Acetaminophen 325 Mg Tablet) 650 mg PO Q6H PRN PRN Reason: Pain, Mild (Pain Scale 1-3) Last Admin: 01/14/24 03:58 Dose: 650 mg Documented By: ABY Albuterol Sulfate (Albuterol Sulfate 90 Mcg 8 Gm Inhaler) 2 puff INHALE Q6H PRN PRN Reason: shortness of breath or wheezing Aspirin (Aspirin Enteric Coated 81 Mg Tablet.) 81 mg PO BEDTIME [facility] Last Admin: 01/13/24 20:23 Dose: 81 mg Documented By: SONIA Atorvastatin Calcium (Atorvastatin Calcium 80 Mg Tablet) 80 mg PO BEDTIME [facility] Last Admin: 01/13/24 20:23 Dose: 80 mg Documented By: SONIA Carvedilol (Carvedilol 12.5 Mg Tablet) 12.5 mg PO BIDWM [facility]; Protocol Last Admin: 01/14/24 08:48 Dose: 12.5 mg Documented By: JAYSHREE Clopidogrel Bisulfate (Clopidogrel Bisulfate 75 Mg Tablet) 75 mg PO DAILY [facility] Last Admin: 01/14/24 08:49 Dose: 75 mg Documented By: JAYSHREE Glucose (Glucose Gel 15 Gm Gel..Gram.) 15 gm PO Q15M PRN; Protocol PRN Reason: per Hypoglycemia Standing Ord. Last Admin: 01/13/24 10:19 Dose: 15 gm Documented By: SHADI Glucose (Glucose Gel 15 Gm Gel..Gram.) 15 gm PO Q15M PRN; Protocol PRN Reason: per Hypoglycemia Standing Ord. Heparin Sodium (Porcine) (Heparin Sodium,Porcine 5,000 Unit/Ml Vial) 5,000 unit SUBCUT BID [facility] Last Admin: 01/14/24 08:48 Dose: 5,000 unit Documented By: JAYSHREE Dextrose (D10) 250 mls @ 750 mls/hr IV Q15M PRN; Protocol PRN Reason: per Hypoglycemia Standing Ord. Dextrose (D10) 250 mls @ 750 mls/hr IV Q15M PRN; Protocol PRN Reason: per Hypoglycemia Standing Ord. Insulin Human Lispro (Insulin Lispro 100 Unit/Ml 3 Ml Vial) 0 unit SUBCUT QIDACHS [facility]; Protocol Magnesium Oxide (Magnesium Oxide 400 Mg Tablet) 400 mg PO DAILY [facility] Last Admin: 01/14/24 08:49 Dose: 400 mg Documented By: JAYSHREE Melatonin (Melatonin 3 Mg Tablet) 6 mg PO BEDTIME PRN PRN Reason: Insomnia Last Admin: 01/13/24 20:28 Dose: 6 mg Documented By: SONIA Ondansetron HCl (Ondansetron Hcl 4 Mg/2 Ml Vial) 4 mg IVPUSH Q8H PRN PRN Reason: Nausea and Vomiting Senna (Sennosides 8.6 Mg Tablet) 17.2 mg PO BEDTIME [facility] Last Admin: 01/13/24 20:23 Dose: 17.2 mg Documented By: SONIA Sevelamer Carbonate (Sevelamer Carbonate Tablet 800 Mg Tablet) 800 mg PO TIDWM [facility] Last Admin: 01/14/24 08:49 Dose: 800 mg Documented By: JAYSHREE Sodium Chloride (0.9 % Sodium Chloride Flush 3 Ml Syringe) 3 ml IVFLUSH QSHIFT [facility] Last Admin: 01/14/24 08:49 Dose: 3 ml Documented By: JAYSHREE Valsartan (Valsartan 80 Mg Tablet) 80 mg PO BID [facility]; Protocol Last Admin: 01/14/24 08:48 Dose: 80 mg Documented By: JAYSHREE Labs 01/13/24 05:58 01/13/24 05:58 Labs: Laboratory Results - last 24 hr 01/13/24 01/13/24 01/13/24 10:13 10:35 11:04 ESR 29 H POC Glucose 66 86 C-Reactive Protein 0.12 01/13/24 01/13/24 01/13/24 11:54 13:42 16:19 ESR POC Glucose 71 96 135 H C-Reactive Protein 01/13/24 01/14/24 01/14/24 19:45 03:48 04:08 ESR POC Glucose 137 H 53 L* 57 L* C-Reactive Protein 01/14/24 01/14/24 04:24 07:19 ESR POC Glucose 89 92 C-Reactive Protein Assessment and Plan (1) Bilateral visual loss: Status: Acute (2) Hypoglycemia: Status: Acute Plan 68-year-old female with pertinent history of ESRD on hemodialysis (Monday, Monday), congestive heart failure with reduced ejection fraction, insulin-dependent type 2 diabetes mellitus, mixed hyperlipidemia, essential hypertension, history of CVA, mood disorder who presents to the emergency department for evaluation of acute rights eye vision loss patient has chronic left eye decreased vision as per patient status post bilateral eye surgery Question for cataract versus laser procedure. #. Bilateral vision loss: Chronic left eye vision loss, right eye vision loss improving able to see but blurry,no associated speech impairment, weakness ,no numbness, no PUENTE, CT head unremarkable. Seen by Neurology patient noted to have no evidence of acute stroke, ESR 29 and CRP 0.12, therefore less likely temporal arteritis. Recommend outpatient ophthalmology evaluation. Call daughter and updated her about patient's clinical condition and discussed importance of outpatient ophthalmology follow up. #. ESRD on hemodialysis: Underwent hemodialysis session on 01/11. On hemodialysis Wednesdays and Fridays , Nephrology to arrange Hd. #.? Insulin-dependent type 2 diabetes mellitus with hyperglycemia: Initially noted to have hyperglycemia treated with Lantus subsequently noted to have hypoglycemia , likely due to missing snacks As per patient compliant with home dose of Lantus 20 units at bedtime and insulin sliding scale Due to persistent hypoglycemia will DC Lantus continue insulin sliding scale and monitor blood sugars . #.? Essential hypertension: Stable BP continue valsartan b.i.d. #.? History of CVA: Continue plavix, aspirin and high-intensity statin #. Mood disorder. Continue mood stabilizers #. Class 1 Obesity: Counseled regarding diet and weight loss DVT prophylaxis: Heparin Full code Patient will require continued inpatient hospitalization for hypoglycemia and acute vision loss. Quality Stroke Does the patient have a stroke diagnosis?: No VTE Prior VTE?: No VTE Risk Level:: Medical - moderate - high VTE Device Contraindication: Treatment Not Indicated VTE Drug Contraindication: N/A - Med Ordered
[2024-01-14 11:36] LABS: Glucose, Whole Blood 102 mg/dL (60-115)
[2024-01-14 15:53] LABS: Glucose, Whole Blood 162 mg/dL (60-115)
[2024-01-14] MEDS: Insulin Lispro 100 UNIT/ML 3 ML VIAL SUBCUT ×2 (17:20→21:21)
[2024-01-14 20:56] LABS: Glucose, Whole Blood 258 mg/dL (60-115)
[2024-01-14] MEDS: Melatonin 3 MG TABLET 6 MG PO (21:20)
[2024-01-14] MEDS: Aspirin Enteric Coated 81 MG TABLET.DR PO (21:21)
[2024-01-14] MEDS: Atorvastatin Calcium 80 MG TABLET PO (21:21)
[2024-01-14] MEDS: Sennosides 8.6 MG TABLET 17.2 MG PO (21:21)
--- NOTE | 2024-01-15 | ECG_ITS ---
Test Reason : cp Blood Pressure : / mmHG Vent. Rate : 065 BPM Atrial Rate : 065 BPM P-R Int : 164 ms QRS Dur : 124 ms QT Int : 496 ms P-R-T Axes : 061 011 251 degrees QTc Int : 515 ms Artifact in tracing Normal sinus rhythm Non-specific intra-ventricular conduction delay Minimal voltage criteria for LVH, may be normal variant ( Heriberto product ) ST & T wave abnormality, consider inferolateral ischemia Abnormal ECG No significant changes when compared with the previous EKG of 12 january 2024 Referred By: Gustavo Trevñio Electronically Signed By:MYESHA FREY
[2024-01-15 03:18] VITALS: BP 140/65; PULSE 65; RESP 20; TEMP 36.4; O2SAT 93
[2024-01-15 07:22] LABS: Estimated Average Glucose 180 mg/dL; Hemoglobin A1c % 7.9 % (<6.0)
[2024-01-15 07:22] LABS: Glucose, Whole Blood 51 mg/dL (60-115)
[2024-01-15 07:24] LABS: Anion Gap 14 (12-20); Blood Urea Nitrogen 30 mg/dL (9-16); Calcium 8.1 mg/dL (8.4-10.2); Carbon Dioxide 29 mmol/L (22-29); Chloride 100 mmol/L (96-108); Creatinine Clr Calc Pharmacy 12.8; Estimated Glomerular Filt Rate 14; Glucose Random 58 mg/dL (60-115); Sodium 138 mmol/L (135-145)
[2024-01-15 07:38] VITALS: BP 145/65; PULSE 60; RESP 18; TEMP 36.8; O2SAT 98
[2024-01-15 08:00] LABS: Glucose, Whole Blood 111 mg/dL (60-115)
[2024-01-15] MEDS: Valsartan 80 MG TABLET PO ×2 (08:05→20:07)
[2024-01-15] MEDS: Clopidogrel Bisulfate 75 MG TABLET PO (08:05)
[2024-01-15] MEDS: Heparin Sodium,Porcine 5,000 UNIT/ML VIAL 5000 UNIT SUBCUT ×2 (08:05→20:09)
[2024-01-15] MEDS: carvediloL 12.5 MG TABLET PO ×2 (08:06→17:21)
[2024-01-15] MEDS: Magnesium Oxide 400 MG TABLET PO (08:06)
[2024-01-15] MEDS: 0.9 % Sodium Chloride Flush 3 ML SYRINGE IVFLUSH ×3 (08:06→22:21)
[2024-01-15] MEDS: Sevelamer Carbonate Tablet 800 MG TABLET PO ×3 (08:07→17:21)
[2024-01-15] MEDS: Acetaminophen 325 MG TABLET 650 MG PO (11:22)
[2024-01-15 11:28] LABS: Glucose, Whole Blood 136 mg/dL (60-115)
--- NOTE | 2024-01-15 12:12 | MHC.SLORD ---
Speech Language Pathology Order Status: Per EMR, stroke has been ruled out, pt is being worked up for acute right eye vision loss. RN reports patient has been tolerating meals without any difficulty and taking pills whole. Discussed w/ Dr. Treviño- Dr. Treviño will cx order- [employer] consult no longer needed. Please re-refer with any changes.
--- NOTE | 2024-01-15 13:42 | HO.PM.IMPN ---
Subjective Subjective Date of Service: 01/16/24 Interval History: Patient seen during dialysis offered no acute complaints, denies chest pain, right eye vision improved able to see better from right eye admit to have chronic left eye vision loss, post hemodialysis patient complained of bilateral arm discomfort, leg pain, chest burning and admitted she has this for 8 months , appeared confused. Review of Systems All other system reviewed and negative Physical Exam Vital Signs: Vital Signs: Last Vital Signs Temp 98.3 F 01/15/24 07:38 Pulse 60 01/15/24 07:38 Resp 18 01/15/24 07:38 BP 145/65 H 01/15/24 07:38 Pulse Ox 98 01/15/24 07:38 O2 Del Method Room Air 01/15/24 07:38 O2 Flow Rate 95 01/13/24 03:54 BMI result Body Mass Index 31.7 Const: Other: General ? Awake alert, in no acute distress, talking in full sentences.? Eyes pupils equal, right eye able to see and count fingers but blurry. Neck? supple no JVD. CVS? regular rate rhythm, no chest wall tenderness to palpation Respiratory lungs clear to auscultation, no respiratory distress, no wheeze, no rhonchi. Gastrointestinal abdomen soft, non tender, bowel sounds audible, no guarding , no rigidity. Extremities? 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 Skin no rash psych appropriate affect Objective Data Active Medications Acetaminophen (Acetaminophen 325 Mg Tablet) 650 mg PO Q6H PRN PRN Reason: Pain, Mild (Pain Scale 1-3) Last Admin: 01/15/24 11:22 Dose: 650 mg Documented By: AGNES Albuterol Sulfate (Albuterol Sulfate 90 Mcg 8 Gm Inhaler) 2 puff INHALE Q6H PRN PRN Reason: shortness of breath or wheezing Aspirin (Aspirin Enteric Coated 81 Mg Tablet.) 81 mg PO BEDTIME FORMERLY [facility], [facility] Last Admin: 01/14/24 21:21 Dose: 81 mg Documented By: ERNIE Atorvastatin Calcium (Atorvastatin Calcium 80 Mg Tablet) 80 mg PO BEDTIME FORMERLY [facility], [facility]1983 Last Admin: 01/14/24 21:21 Dose: 80 mg Documented By: ERNIE Carvedilol (Carvedilol 12.5 Mg Tablet) 12.5 mg PO BIDWM FORMERLY [facility], [facility]1983; Protocol Last Admin: 01/15/24 08:06 Dose: 12.5 mg Documented By: AGNES Clopidogrel Bisulfate (Clopidogrel Bisulfate 75 Mg Tablet) 75 mg PO DAILY FORMERLY [facility], [facility] Last Admin: 01/15/24 08:05 Dose: 75 mg Documented By: AGNES Glucose (Glucose Gel 15 Gm Gel..Gram.) 15 gm PO Q15M PRN; Protocol PRN Reason: per Hypoglycemia Standing Ord. Last Admin: 01/13/24 10:19 Dose: 15 gm Documented By: SHADI Glucose (Glucose Gel 15 Gm Gel..Gram.) 15 gm PO Q15M PRN; Protocol PRN Reason: per Hypoglycemia Standing Ord. Heparin Sodium (Porcine) (Heparin Sodium,Porcine 5,000 Unit/Ml Vial) 5,000 unit SUBCUT BID FORMERLY [facility], [facility] Last Admin: 01/15/24 08:05 Dose: 5,000 unit Documented By: AGNES Dextrose (D10) 250 mls @ 750 mls/hr IV Q15M PRN; Protocol PRN Reason: per Hypoglycemia Standing Ord. Dextrose (D10) 250 mls @ 750 mls/hr IV Q15M PRN; Protocol PRN Reason: per Hypoglycemia Standing Ord. Insulin Human Lispro (Insulin Lispro 100 Unit/Ml 3 Ml Vial) 0 unit SUBCUT QIDACHS FORMERLY [facility], [facility]; Protocol Last Admin: 01/15/24 12:58 Dose: Not Given Documented By: AGNES Non-Admin Reason: No Insulin Coverage Magnesium Oxide (Magnesium Oxide 400 Mg Tablet) 400 mg PO DAILY FOR[facility]LY [facility], [facility] Last Admin: 01/15/24 08:06 Dose: 400 mg Documented By: AGNES Melatonin (Melatonin 3 Mg Tablet) 6 mg PO BEDTIME PRN PRN Reason: Insomnia Last Admin: 01/14/24 21:20 Dose: 6 mg Documented By: ERNIE Ondansetron HCl (Ondansetron Hcl 4 Mg/2 Ml Vial) 4 mg IVPUSH Q8H PRN PRN Reason: Nausea and Vomiting Senna (Sennosides 8.6 Mg Tablet) 17.2 mg PO BEDTIME FORMERLY [facility], [facility] Last Admin: 01/14/24 21:21 Dose: 17.2 mg Documented By: HO.LAFLAMC Sevelamer Carbonate (Sevelamer Carbonate Tablet 800 Mg Tablet) 800 mg PO TIDWM FOR[facility]LY [facility], [facility] Last Admin: 01/15/24 13:13 Dose: 800 mg Documented By: AGNES Sodium Chloride (0.9 % Sodium Chloride Flush 3 Ml Syringe) 3 ml IVFLUSH QSHIFT FORMERLY [facility], [facility]1983 Last Admin: 01/15/24 08:06 Dose: 3 ml Documented By: AGNES Valsartan (Valsartan 80 Mg Tablet) 80 mg PO BID FOR[facility]LY [facility], [facility]; Protocol Last Admin: 01/15/24 08:05 Dose: 80 mg Documented By: AGNES Labs 01/13/24 05:58 01/15/24 06:03 Labs: Laboratory Results - last 24 hr 01/14/24 01/14/24 01/15/24 15:17 20:49 06:03 Anion Gap 14 Estim Creat Clear Calc 12.8 Estimated GFR 14 POC Glucose 162 H 258 H Random Glucose 58 L* Estimat Average Glucose 180 Hemoglobin A1c % 7.9 H Calcium 8.1 L 01/15/24 01/15/24 01/15/24 06:57 07:57 11:22 Anion Gap Estim Creat Clear Calc Estimated GFR POC Glucose 51 L* 111 136 H Random Glucose Estimat Average Glucose Hemoglobin A1c % Calcium Assessment and Plan (1) Bilateral visual loss: Status: Acute (2) Hypoglycemia: Status: Acute Plan 68-year-old female with pertinent history of ESRD on hemodialysis (Monday, Monday), congestive heart failure with reduced ejection fraction, insulin-dependent type 2 diabetes mellitus, mixed hyperlipidemia, essential hypertension, history of CVA, mood disorder who presents to the emergency department for evaluation of acute rights eye vision loss patient has chronic left eye decreased vision as per patient status post bilateral eye surgery Question for cataract versus laser procedure. #. Bilateral vision loss: Chronic left eye vision loss, right eye vision loss improving able to see but blurry,no associated speech impairment, weakness ,no numbness, no PUENTE, CT head unremarkable. Seen by Neurology patient noted to have no evidence of acute stroke, ESR 29 and CRP 0.12, therefore less likely temporal arteritis. Recommend outpatient ophthalmology evaluation. # chest pain/arm pain/mild confusion all workup negative with normal blood sugars, EKG with no acute change, likely mild confusion post hemodialysis resolved later in the day, and patient realized that she was confused no acute encephalopathy #. ESRD on hemodialysis: Underwent hemodialysis session on 01/11. On hemodialysis Wednesdays and Fridays , Nephrology to arrange Hd. #.? Insulin-dependent type 2 diabetes mellitus with hyperglycemia: Initially noted to have hyperglycemia treated with Lantus subsequently noted to have hypoglycemia , likely due to missing snacks As per patient compliant with home dose of Lantus 20 units at bedtime and insulin sliding scale Due to persistent hypoglycemia will DC Lantus continue insulin sliding scale and monitor blood sugars . #.? Essential hypertension: Stable BP continue valsartan b.i.d.and coreg. #.? History of CVA: Continue plavix, aspirin and high-intensity statin #. Mood disorder. Continue mood stabilizers #. Class 1 Obesity: Counseled regarding diet and weight loss. DVT prophylaxis: Heparin Full code Patient will require continued inpatient hospitalization for hypoglycemia and acute vision loss. Quality Stroke Does the patient have a stroke diagnosis?: No VTE Prior VTE?: No VTE Risk Level:: Medical - moderate - high VTE Device Contraindication: Treatment Not Indicated VTE Drug Contraindication: N/A - Med Ordered
[2024-01-15 14:50] VITALS: BP 140/65; PULSE 66; RESP 18; TEMP 35.9; O2SAT 99
[2024-01-15 15:00] LABS: Glucose, Whole Blood 180 mg/dL (60-115)
[2024-01-15] MEDS: Insulin Lispro 100 UNIT/ML 3 ML VIAL SUBCUT ×2 (17:21→21:14)
[2024-01-15 20:00] VITALS: BP 147/68; PULSE 68; RESP 18; TEMP 36.2; O2SAT 99
[2024-01-15] MEDS: Sennosides 8.6 MG TABLET 17.2 MG PO (20:07)
[2024-01-15] MEDS: Aspirin Enteric Coated 81 MG TABLET.DR PO (20:07)
[2024-01-15] MEDS: Atorvastatin Calcium 80 MG TABLET PO (20:07)
[2024-01-15 21:20] LABS: Glucose, Whole Blood 203 mg/dL (60-115)
[2024-01-15] MEDS: traMADoL HCL 50 MG TABLET 25 MG PO (22:19)
[2024-01-15 23:18] VITALS: BP 154/65; PULSE 78; RESP 18; TEMP 36.3; O2SAT 98
[2024-01-16 04:46] VITALS: BP 150/67; PULSE 60; RESP 19; TEMP 36.1; O2SAT 98
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
[2024-01-16 07:13] VITALS: BP 183/78; PULSE 62; RESP 20; TEMP 36.5; O2SAT 96
[2024-01-16 07:37] LABS: Glucose, Whole Blood 106 mg/dL (60-115)
[2024-01-16] MEDS: Magnesium Oxide 400 MG TABLET PO (08:26)
[2024-01-16] MEDS: carvediloL 12.5 MG TABLET PO (08:26)
[2024-01-16] MEDS: Heparin Sodium,Porcine 5,000 UNIT/ML VIAL 5000 UNIT SUBCUT (08:26)
[2024-01-16] MEDS: Sevelamer Carbonate Tablet 800 MG TABLET PO ×2 (08:26→12:29)
[2024-01-16] MEDS: Valsartan 80 MG TABLET PO (08:26)
[2024-01-16] MEDS: 0.9 % Sodium Chloride Flush 3 ML SYRINGE IVFLUSH (08:27)
--- NOTE | 2024-01-16 10:39 | HO.WOUND ---
Wound Consult: Initial 68yr old?F admitted to [facility] on 01/13/24 - See progress notes and H&P for detailed history.? Wound consult placed for Right Middle Finger Wound and Right Foot 2nd Toe wound.? Patient agreeable to assessment and photo documentation.? From previous admission pt reports the wound is from her picking and biting the tissue as it heals, with Diabetes Diagnosis ?Right 3rd Finger Etiology: Diabetic Wound? - traumatic injury ??Present on Admission Wound Bed: pink and yellow slough ?wound bed Drainage / Odor: None Edges: ? callused and macerated [place] wound: Intact? ? No Induration, Fluctuance or Warmth noted Pain: denies Goals of Treatment: Moisture Management with durafiber and cover dressing to protect from continued injury Right 2nd Toe Diabetic Foot Wound? - Stable eschar and moist garrett slough.? Foam dressing in place removed and likely contributed to garrett moist slough suspect the area was black stable eschar.? No drainage noted No Odor noted. No fluctuance noted will attempt to stabilize and dry with betadine and no dressing.? Recommendations: 1. Turn and Reposition every 2 hours and as needed for patient comfort.? Use pillows or wedges to support off loading positions. 2. Off Load all bony prominences with use of pillows and heel boots if needed.? Apply Preventative foams where needed. ? 3. Monitor for incontinence and moisture control, use barrier creams when needed for prevention and treatment. 4. Provide adequate and supplemental nutrition.? 5. Order or Continue low air loss mattress. 6. When applicable maintain blood glucose levels per Providers order. 7. Right 3rd Finger? - Cleanse with routine Ph balanced soap and water.? Pat dry.? Cover with single layer of xeroform cut to size, cover with dry gauze and change daily. 8. Right 2nd Toe ? [place] with Betadine leave open to air to keep dry.? Do not cover with foam dressing at this will donate moisture to the stable eschar.?
[2024-01-16 11:22] VITALS: BP 185/79; PULSE 63; RESP 16; TEMP 36.4; O2SAT 99
[2024-01-16 11:30] LABS: Glucose, Whole Blood 145 mg/dL (60-115)
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
[2024-01-16] MEDS: Clopidogrel Bisulfate 75 MG TABLET PO (12:29)
--- NOTE | 2024-01-16 12:30 | MHC.CM.PN ---
Pt has been medically cleared for DC, she will go home today via ambulance and resume her previous home care services, her daughter was notified.
[2024-01-16] MEDS: Acetaminophen 325 MG TABLET 650 MG PO (14:29)
[2024-01-16 15:08] VITALS: BP 176/76; PULSE 65; RESP 20; TEMP 36.4; O2SAT 95
--- NOTE | 2024-01-16 15:37 | PC.NURSE ---
patient reporting 10/10 pain in shoulders tylenol given for pain.
== END 2024-01-16 16:33 | disposition home health service (06) | DRG 637 ==
LOC: HO.ED 01-13 01:41 → HO.EDOVER 01-13 05:54 → HO.IMC 01-13 16:44 → HO.S3 01-15 19:09 → HO.IMC 01-15 20:20
PROVIDERS: Physician Assistant; Admitting Provider Student in an Organized Health Care Education/Training Program; Emergency Provider Student in an Organized Health Care Education/Training Program; PCP Internal Medicine; Visit Provider Hospitalist
DX: E11.65 Type 2 diabetes mellitus with hyperglycemia (principal); N18.6 End stage renal disease; I13.2 Hypertensive heart and chronic kidney disease with heart failure and with stage 5 chronic kidney disease, or end stage renal disease; I50.22 Chronic systolic (congestive) heart failure; E11.52 Type 2 diabetes mellitus with diabetic peripheral angiopathy with gangrene; H54.3 Unqualified visual loss, both eyes; F39 Unspecified mood [affective] disorder; E66.8 Other obesity; Z68.31 Body mass index [BMI] 31.0-31.9, adult; E11.22 Type 2 diabetes mellitus with diabetic chronic kidney disease; E11.649 Type 2 diabetes mellitus with hypoglycemia without coma; E78.2 Mixed hyperlipidemia; Z89.612 Acquired absence of left leg above knee; Z86.73 Personal history of transient ischemic attack (TIA), and cerebral infarction without residual deficits; Z99.2 Dependence on renal dialysis; Z79.4 Long term (current) use of insulin; Z79.02 Long term (current) use of antithrombotics/antiplatelets; Z79.82 Long term (current) use of aspirin; Z79.899 Other long term (current) drug therapy
CPT/HCPCS: 36415; 70450; 80048; 80053; 82947; 83036; 84484; 85025; 85027; 85652; 86140; 90999; 93005; 97162; 99285; J1644

== ENCOUNTER → 2024-01-12 23:19 | Outpatient (BNV) | payer OTHER, SELFPAY | PROVIDERS: Admitting Provider Student in an Organized Health Care Education/Training Program; Emergency Provider Student in an Organized Health Care Education/Training Program; PCP Internal Medicine; Visit Provider Internal Medicine Cardiovascular Disease | DX: R07.9 Chest pain, unspecified (principal) | CPT/HCPCS: 93010 ==

== ENCOUNTER → 2024-01-12 23:57 | Outpatient (BNV) | payer OTHER, SELFPAY | PROVIDERS: Emergency Provider Student in an Organized Health Care Education/Training Program; PCP Internal Medicine; Visit Provider Student in an Organized Health Care Education/Training Program | DX: H54.3 Unqualified visual loss, both eyes (principal); E16.2 Hypoglycemia, unspecified | CPT/HCPCS: 99222; 99233; 99239; 99499 ==

== ENCOUNTER 2024-01-13 02:14 | Outpatient (BNV) | payer OTHER, SELFPAY | END 2024-01-15 14:45 | PROVIDERS: Admitting Provider Student in an Organized Health Care Education/Training Program; Emergency Provider Student in an Organized Health Care Education/Training Program; PCP Internal Medicine; Visit Provider Internal Medicine | DX: R07.9 Chest pain, unspecified (principal) | CPT/HCPCS: 93010 ==

== ENCOUNTER → 2024-01-13 02:14 | Outpatient (BNV) | payer OTHER, SELFPAY | PROVIDERS: Admitting Provider Student in an Organized Health Care Education/Training Program; Emergency Provider Student in an Organized Health Care Education/Training Program; PCP Internal Medicine; Visit Provider Psychiatry & Neurology Neurology | DX: H54.3 Unqualified visual loss, both eyes (principal) | CPT/HCPCS: 99222 ==

== ENCOUNTER 2024-01-31 10:15 | Emergency (ER) | payer OTHER, SELFPAY ==
--- NOTE | ~2024-01-31 | XR_ITS ---
EXAMINATION: XR CHEST CLINICAL INFORMATION: Wheezing COMPARISON: 12/07/2023 TECHNIQUE: Frontal view of the chest was obtained. FINDINGS: There is low lung volume bilaterally and cardiomegaly. There is large caliber catheter present over the cavoatrial junction and there are bibasilar atelectasis seen but no pleural effusion. There is questionable right lower lobe nodule versus nipple. There are increased interstitial markings at the lung bases. Heart is prominent XR/XR chest 1V IMPRESSION: Cardiomegaly and bibasilar atelectasis. Questionable right lower lobe nodule versus nipple. Follow-up with nipple markers is recommended versus follow-up by CT scan of the chest.
[2024-01-31 10:21] VITALS: BP 152/62; BP 152/83; PULSE 60; PULSE 65; RESP 18; TEMP 36.6; O2SAT 100; BMI 31.0
--- NOTE | 2024-01-31 10:26 | ECG_ITS ---
Test Reason : sob Blood Pressure : / mmHG Vent. Rate : 064 BPM Atrial Rate : 064 BPM P-R Int : 156 ms QRS Dur : 122 ms QT Int : 486 ms P-R-T Axes : 042 -08 207 degrees QTc Int : 501 ms Normal sinus rhythm Non-specific intra-ventricular conduction delay Minimal voltage criteria for LVH, may be normal variant ( Heriberto product ) ST & T wave abnormality, consider inferolateral ischemia Abnormal ECG When compared with ECG of 15-JAN-2024 14:45, No significant change was found Referred By: Sharlene Alberts Electronically Signed By:MYESHA FREY
[2024-01-31] MEDS: methylPREDNISolone Sod Succ 125 MG/2 ML VIAL 60 MG IVPUSH (10:45)
--- NOTE | 2024-01-31 10:51 | ED.SOB ---
HPI - SOB/Dyspnea General Chief Complaint: Dyspnea Stated Complaint: SOB PER EMS Time Seen by Provider: 01/31/24 10:17 Source: patient, EMS, RN notes reviewed, old records reviewed and testing consultant Mode of arrival: EMS Limitations: no limitations History of Present Illness HPI Narrative: 68 yo [place] speaking female with history of ESRD on HD M/W/F, CVA, DM, history of left BKA, NSTEMI, gastroparesis, HFrEF, anemia, multiple partial finger amputations who presents to the ER from home via EMS for evaluation of SOB that started last night. Her son tried to package liner her inhaler and after an hour she had no improvement so 911 was called. Patient was found to have some scattered wheezing. She was given a DuoNeb EN route. She was not hypoxic. She denies a productive cough, fever, chills, orthopnea, extremity swelling. She is due for dialysis today but did not feel like she could go because of her shortness of breath. She denies any chest pain or abdominal pain. No vomiting or diarrhea. MD elicited complaint: shortness of breath Pertinent past history: COPD and congestive heart failure Onset (ago): day(s) (1) Timing: progressively worsening Severity: moderate Exacerbating factors: movement Known history of: COPD and congestive heart failure Treatment prior to arrival: oxygen and bronchodilator Related Data Home oxygen amount: none Home Medications ?Medication ?Instructions ?Recorded ?Confirmed aspirin 81 mg tablet,delayed 81 mg PO BEDTIME 06/20/21 01/13/24 release atorvastatin 80 mg tablet 80 mg PO BEDTIME 06/20/21 01/13/24 clopidogrel 75 mg tablet 75 mg PO DAILY 06/20/21 01/13/24 magnesium oxide 400 mg (241.3 mg 400 mg PO DAILY 04/20/23 01/13/24 magnesium) tablet blood sugar diagnostic (OneTouch #10 ea 05/25/23 Ultra Test strips) insulin aspart U-100 100 unit/mL See Protocol subcut NEEDED PRN 05/25/23 01/13/24 (3 mL) subcutaneous pen (Novolog bs >200 FlexPen U-100 Insulin aspart) lancets 33 gauge (OneTouch Delica #100 ea 05/25/23 Plus Lancet) pen needle, diabetic 32 gauge x #1,200 ea 05/25/23 (Pentips) melatonin 5 mg tablet 5 - 10 mg PO BEDTIME PRN Sleep 09/21/23 01/13/24 sevelamer carbonate 800 mg tablet 800 mg PO TIDWM 10/08/23 01/13/24 albuterol sulfate 90 mcg/actuation 2 inh inhalation Q6H PRN shortness 01/02/24 01/13/24 breath activated powder inhaler of breath or wheezing cholecalciferol (vitamin D3) 1,250 1,250 mcg PO QWEEK 01/02/24 01/13/24 mcg (50,000 unit) capsule pantoprazole 40 mg tablet,delayed 40 mg PO DAILY@0630 01/02/24 01/13/24 release Previous Rx's ?Medication ?Instructions ?Recorded carvedilol 12.5 mg tablet 12.5 mg PO BIDWM #60 tabs 10/11/23 valsartan 80 mg tablet 80 mg PO BID #60 tabs 10/11/23 sennosides 8.6 mg tablet (Natural 17.2 mg (2 x 8.6 mg) PO BEDTIME 11/22/23 Senna Laxative) constipation #60 tabs hydrocortisone 1 % topical cream 1 appl topical TID PRN itching 12/15/23 (Preparation H Hydrocortisone) #28.35 grams lidocaine 5 % topical ointment 1 appl topical QID PRN pain #50 12/15/23 grams Allergies Allergy/AdvReac Type Severity Reaction Status Date / Time No Known Allergies Allergy Verified 01/31/24 10:25 Review of Systems Review of Systems: Yes all other systems are reviewed and are negative PMFSH Past Medical History Medical History Open wnd toe-complicated Wound, open, hand with or without fingers with complication End stage renal disease on dialysis Congestive heart failure Hyperglycemia due to diabetes mellitus Anemia End stage renal disease Heart failure with reduced ejection fraction Dialysis patient, noncompliant Chronic kidney disease Thrombocytopenia CKD (chronic kidney disease) stage 4, GFR 15-29 ml/min Constipation Ischemic necrosis of finger Normocytic anemia Urinary tract infection due to ESBL Klebsiella Chronic heart failure with preserved ejection fraction (HFpEF) Hypomagnesemia Acute on chronic renal failure Essential hypertension HLD (hyperlipidemia) Non-ST elevated myocardial infarction Diabetes mellitus Nonischemic cardiomyopathy Irritable bowel syndrome with diarrhea Gastroparesis GERD (gastroesophageal reflux disease) Surgical History Status post amputation of finger H/O surgical amputation of finger History of laparoscopic cholecystectomy History of intestinal surgery Hx of eye surgery History of esophagogastroduodenoscopy (EGD) Hx of colonoscopy H/O: hysterectomy Family History Family History Father Lung cancer Mother Diabetes HTN (hypertension) Heart disease Sister Diabetes Heart disease Brother Heart disease Son Diabetes Daughter Diabetes Social History Social History Household Members: Children Household Members Other:: Daughter and grandson Housing: House Do you presently have visiting nurse or other home services: No (Grandson is a [employer] ENGINEER that will start soon.) Unable to assess alcohol history related to: Unable to respond and Unknown Alcohol intake: never Comment: camera in place Patient Tobacco Use Status: Never used Tobacco e-Cigarette/Vaping Use: Never Used Second Hand Smoke Exposure: No Advance Directives: Yes Advance Directives on File: Yes Advance Directives Date on File: 01/04/23 Do you have a plan to hurt others: No Plan service: No Current occupational status: disabled Physical Exam Vital Signs: Vital Signs: Last Vital Signs Temp 97.2 F 01/31/24 15:32 Pulse 73 01/31/24 15:32 Resp 14 01/31/24 15:32 BP 112/68 01/31/24 15:32 Pulse Ox 94 01/31/24 15:32 O2 Del Method Room Air 01/31/24 15:32 O2 Flow Rate 1 01/31/24 13:07 Oxygen Flow Rate 2 01/31/24 10:21 BMI result Body Mass Index 31.0 Appearance: Alert. Oriented X3. No acute distress. Head: normocephalic, atraumatic. Eyes: Pupils equal, round and reactive to light. ENT: Pharynx normal. No tonsillar swelling or exudate. Neck: Normal inspection. Neck supple. CVS: Normal heart rate and rhythm. Pulses normal. Respiratory: No respiratory distress. Breath sounds diminished at the bilateral bases with scattered expiratory wheezes throughout. Speaking in complete sentences. Abdomen: Soft and nontender. +BS x4 Skin: Skin warm and dry. Normal skin color. Normal skin turgor. No rashes. Extremities: No lower extremity edema. Status post left BKA. Multiple partial finger amputations Neuro/psych: Oriented X 3. No motor deficit. No sensory deficit. CN II-XII intact. Normal speech and cognition. Medications Administered Discontinued Medications Generic Name Dose Route Start Last Admin Trade Name Wang PRN Reason Stop Dose Admin Albuterol Sulfate 4 puff 01/31/24 11:22 01/31/24 11:29 Albuterol Sulfate 90 Mcg 8 Gm Inhaler INHALE 01/31/24 11:23 4 puff ONCE ONE Administration Albuterol Sulfate 4 puff 01/31/24 11:23 01/31/24 11:29 Albuterol Sulfate 90 Mcg 8 Gm Inhaler INHALE 01/31/24 11:24 Not Given ONCE ONE Methylprednisolone Sodium Succinate 60 mg 01/31/24 10:28 01/31/24 10:45 Methylprednisolone Sod Succ 125 Mg/2 Ml Vial IVPUSH 01/31/24 10:29 60 mg ONCE ONE Administration Medical Decision Making Medical Decision Making MDM Narrative: 68-year-old female with multiple comorbidities presenting to the ER for evaluation of shortness of breath. She has wheezing on exam. She has both history of COPD and CHF. She has not appear overtly volume overloaded. She was due for dialysis today so there was a concern for pulmonary edema. Her blood pressure is under decent control. She is requiring 1 L nasal cannula with sats in the high 90s. Bronch protocol ordered. She was given IV steroids and a breathing treatment with improvement in her symptoms. She has been weaned off of oxygen. Chest x-ray is showing atelectasis bilateral bases. Given her improvement with COPD treatments this is less likely related to volume overload vascular congestion. Spoke with Nephrology, okay with dialysis tomorrow. Will discharge home and she can get outpatient dialysis tomorrow non emergently. We discussed return precautions with her and her daughter. Differential Diagnosis Differential Diagnoses: The differential diagnosis associated with the presentation includes Acute CHF exacerbation, acute COPD exacerbation, asthma, pneumonia, viral URI Admission/Observation Consideration of admission/observation: Escalation of care including admission/observation considered Consult Healthcare Provider Management of the patient was discussed with: Tire Room Supervisor Dr. Monroe Nephrology - david to dialyze tomorrow Lab Data [facility] Lab Attestation statement: I reviewed the patient's lab results. No leukocytosis, electrolytes within acceptable range for dialysis, hyperglycemia 01/31/24 10:39 01/31/24 10:39 Labs: Lab Results 01/31/24 01/31/24 01/31/24 Range/Units 10:39 10:54 11:18 WBC 8.9 (4.8-10.8) X10*3/uL RBC 3.78 L (4.20-5.50) X10*6/uL Hgb 10.8 L (12.0-16.0) g/dl Hct 33.4 L (37.0-47.0) % MCV 88.4 (80.0-98.0) fL MCH 28.6 (27.0-33.0) pg MCHC 32.3 (31.0-35.0) g/dl RDW 14.5 (11.0-16.0) % Plt Count 138 L (160-400) X10*3/uL MPV 11.3 (9.4-12.3) fL Immature Gran % (Auto) 0.5 H (0.0-0.4) % Neut % (Auto) 75.4 H (45-73) % Lymph % (Auto) 13.6 L (20-40) % [place] % (Auto) 8.5 (2-11) % Eos % (Auto) 1.7 (0-4) % Baso % (Auto) 0.3 (0-2) % Lymph # (Auto) 1.2 (1.2-4.9) X10*3/uL [place] # (Auto) 0.8 (0.1-1.2) X10*3/uL Eos # (Auto) 0.2 (0.0-0.4) X10*3/uL Baso # (Auto) 0.0 (0.0-0.2) X10*3/uL Abs Immat Gran (auto) 0.04 H (0.00-0.03) X10*3/uL Absolute Neuts (auto) 6.7 (2.0-8.3) x10*3/uL Absolute Nucleated RBC 0.000 (0.0-0.012) X10*3/uL Nucleated RBC % (auto) 0.0 (0.0-0.2) /100WBC VBG pH 7.45 H (7.32-7.43) VBG pCO2 43 mmHg VBG pO2 59 mmHg VBG HCO3 30 H (22-26) mmol/L VBG O2 Saturation 88.0 % VBG Base Excess 6.4 mmol/L Sodium 135 (135-145) mmol/L Potassium 4.6 (3.3-5.1) mmol/L Chloride 97 (96-108) mmol/L Carbon Dioxide 28 (22-29) mmol/L Anion Gap 15 (12-20) BUN 28 H (9-16) mg/dL Creatinine 3.58 H (0.5-1.4) mg/dL Estim Creat Clear Calc 14.5 Estimated GFR 13 Random Glucose 339 H (60-115) mg/dL Calcium 8.5 (8.4-10.2) mg/dL Magnesium 2.1 (1.6-2.6) mg/dL Total Bilirubin 0.3 (0.0-1.0) mg/dL Direct Bilirubin 0.1 (0.0-0.5) mg/dL AST 12 (5-31) U/L ALT 10 (0-31) U/L Alkaline Phosphatase 213 H (39-117) U/L Troponin I High Sens 19.8 H (<3.5-17.0) ng/L B-Natriuretic Peptide 3212 H (<100) pg/mL Total Protein 6.8 (6.5-8.0) g/dL Albumin 3.1 L (3.5-5.0) g/dL Influenza Type A (PCR) NEGATIVE (Negative) Influenza Type B (PCR) NEGATIVE (Negative) RSV RNA Qual (PCR) NEGATIVE (Negative) SARS-CoV-2 RNA (RT-PCR) NEGATIVE (Negative) Independent Interpretation I performed an independent interpretation of an: EKG and Plain X-Ray Interpretation: EKG with normal sinus rhythm, artifact present, T-wave inversions in leads 2 and 3, wide QRS, no ST segment elevations or depressions. Unchanged from prior. Prolonged QTC 501 CXR w/ bibasilar infiltrates, c/w atelectasis vs overload Radiology Impression Discussion of test interpretation with radiology: I have reviewed the radiologist's reading. Radiologist Impression: EXAMINATION: XR CHEST CLINICAL INFORMATION: Wheezing COMPARISON: 12/07/2023 TECHNIQUE: Frontal view of the chest was obtained. FINDINGS: There is low lung volume bilaterally and cardiomegaly. There is large caliber catheter present over the cavoatrial junction and there are bibasilar atelectasis seen but no pleural effusion. There is questionable right lower lobe nodule versus nipple. There are increased interstitial markings at the lung bases. Heart is prominent XR/XR chest 1V IMPRESSION: Cardiomegaly and bibasilar atelectasis. Questionable right lower lobe nodule versus nipple. Follow-up with nipple markers is recommended versus follow-up by CT scan of the chest. Independent Historian Clinical information obtained from an independent historian. History obtained from or confirmed by: EMS External Record Review External record reviewed: Office record, Outpatient record, Prior outpatient labs and Prior outpatient radiology Prescription Management I considered prescription management with: Pain Medication and Antibiotic Critical Care Time Critical Care Time Critical Care Time: Yes Total Critical Care Time: 46 Attestation: I have personally provided critical care time exclusive of time spent on separately billable procedures. Time includes review of lab data, radiology results, discussion with consultants, and monitoring for potential decompensation. Intervention performed as documented. Discharge Plan Discharge Clinical Impression: Acute exacerbation of chronic obstructive airways disease Patient Disposition: Home, Self-Care Instructions: COPD (Chronic Obstructive Pulmonary Disease) (DC) Additional Instructions: your labs were stable your chest x-ray did not show any pneumonia call to get dialysis TOMORROW use your inhalers at home If you develop new or worsening symptoms call 911 or come back to the ER for further evaluation. Prescriptions: No Action atorvastatin 80 mg tablet 80 mg PO BEDTIME clopidogrel 75 mg tablet 75 mg PO DAILY aspirin 81 mg tablet,delayed release (DR/EC) 81 mg PO BEDTIME magnesium oxide 400 mg (241.3 mg magnesium) tablet 400 mg PO DAILY sevelamer carbonate 800 mg tablet 800 mg PO TIDWM carvedilol 12.5 mg Tablet 12.5 mg PO BIDWM Qty: 60 1RF Protocol: Hold for SBP/HR < HOLD for SBP < : 90 HOLD for HR < : 60 valsartan 80 mg Tablet 80 mg PO BID Qty: 60 1RF Protocol: Hold for SBP< HOLD for SBP < : 90 lidocaine 5 % ointment 1 appl topical QID PRN (Reason: pain) Qty: 50 0RF Rx Instructions: applied to anal area 15 minutes prior to attempted bowel movement hydrocortisone [Preparation H Hydrocortisone] 1 % cream 1 appl topical TID PRN (Reason: itching) Qty: 28.35 0RF melatonin 5 mg tablet 5 - 10 mg PO BEDTIME PRN (Reason: Sleep) cholecalciferol (vitamin D3) 1,250 mcg (50,000 unit) capsule 1,250 mcg PO QWEEK pantoprazole 40 mg tablet,delayed release (DR/EC) 40 mg PO DAILY@0630 Rx Instructions: take one tablet half an hour before breakfast albuterol sulfate 90 mcg/actuation aerosol powdr breath activated 2 inh inhalation Q6H PRN (Reason: shortness of breath or wheezing) sennosides [Natural Senna Laxative] 8.6 mg tablet 17.2 mg PO BEDTIME Qty: 60 3RF (DME) lancets [OneTouch Delica Plus Lancet] 33 gauge misc See Rx Instructions .ROUTE TID Qty: 100 Rx Instructions: As directed (DME) pen needle, diabetic [Pentips] 32 gauge x 5/32 needle See Rx Instructions .ROUTE DIRECTED Qty: 1200 Rx Instructions: As directed (DME) OneTouch Ultra Test Strip See Rx Instructions .ROUTE TID Qty: 10 Rx Instructions: As directed insulin aspart U-100 [Novolog FlexPen U-100 Insulin] 100 unit/mL (3 mL) insulin pen See Protocol subcut NEEDED PRN (Reason: bs >200) Protocol: Insulin Correction Scale Less than or equal to 110 ---- Give (units): 0 111 to 150 Give (units): 0 151 to 200 Give (units): 2 201 to 250 Give (units): 4 251 to 300 Give (units): 6 301 to 350 Give (units): 8 Greater than 350 Give (units): 10 Call MD if Blood Glucose > : 350 Rx Instructions: 8-12 units SLIDING SCALE Referrals: Alexys Avila MD [Primary Care Provider] - Print Language: [place]
[2024-01-31 11:21] LABS: Calcium 8.5 mg/dL (8.4-10.2); Chloride 97 mmol/L (96-108); Potassium 4.6 mmol/L (3.3-5.1); Sodium 135 mmol/L (135-145)
[2024-01-31] MEDS: Albuterol Sulfate 90 MCG 8 GM INHALER 4 PUFF INHALE (11:29)
[2024-01-31 11:30] VITALS: PULSE 96; RESP 18; O2SAT 100
[2024-01-31 13:07] VITALS: BP 161/67; PULSE 68; RESP 17; TEMP 36.2; O2SAT 96
[2024-01-31 15:32] VITALS: BP 112/68; PULSE 73; RESP 14; TEMP 36.2; O2SAT 94
== END 2024-01-31 19:27 | disposition home or self-care (01) ==
PROVIDERS: Physician Assistant; Emergency Provider Emergency Medicine; PCP Internal Medicine
DX: J44.1 Chronic obstructive pulmonary disease with (acute) exacerbation (principal); R06.02 Shortness of breath; I13.2 Hypertensive heart and chronic kidney disease with heart failure and with stage 5 chronic kidney disease, or end stage renal disease; E11.22 Type 2 diabetes mellitus with diabetic chronic kidney disease; N18.6 End stage renal disease; I50.9 Heart failure, unspecified; N17.9 Acute kidney failure, unspecified; Z99.2 Dependence on renal dialysis; Z79.82 Long term (current) use of aspirin; Z79.02 Long term (current) use of antithrombotics/antiplatelets; Z79.4 Long term (current) use of insulin; Z79.84 Long term (current) use of oral hypoglycemic drugs; Z79.899 Other long term (current) drug therapy; Z11.52 Encounter for screening for COVID-19; Z20.828 Contact with and (suspected) exposure to other viral communicable diseases
CPT/HCPCS: 0241U; 36415; 71045; 80048; 80076; 82803; 83735; 83880; 84484; 85025; 93005; 94640; 96374; 99284; 99285; J2919

== ENCOUNTER → 2024-01-31 10:26 | Outpatient (BNV) | payer OTHER, SELFPAY | PROVIDERS: Emergency Provider Emergency Medicine; PCP Internal Medicine; Visit Provider Internal Medicine | DX: R94.31 Abnormal electrocardiogram [ECG] [EKG] (principal) | CPT/HCPCS: 93010 ==

== ENCOUNTER 2024-02-02 16:45 | Emergency (ER) | payer OTHER, SELFPAY ==
[2024-02-02 16:52] VITALS: BP 108/72; PULSE 74; O2SAT 94
--- NOTE | 2024-02-02 16:53 | ECG_ITS ---
Test Reason : weakness Blood Pressure : / mmHG Vent. Rate : 074 BPM Atrial Rate : 074 BPM P-R Int : 160 ms QRS Dur : 120 ms QT Int : 450 ms P-R-T Axes : 045 012 237 degrees QTc Int : 499 ms Normal sinus rhythm Non-specific intra-ventricular conduction delay Marked ST abnormality, possible inferior subendocardial injury Prolonged QT Abnormal ECG When compared with ECG of 31-JAN-2024 10:38, No significant change was found Referred By: Sruthi Beyer Electronically Signed By:MYESHA FREY
--- NOTE | 2024-02-02 16:53 | ED_ITS ---
HPI - General Adult General Chief complaint: GI Bleed Stated complaint: dark stool x1day, on dialysis Time Seen by Provider: 02/02/24 16:52 Source: patient, EMS and insurance claims examiner (all interactions with this patient were facilitated by an [facility] arcade attendant) Mode of arrival: EMS Limitations: language barrier (all interactions with this patient were facilitated by an [facility] arcade attendant) History of Present Illness HPI narrative: Patient is a 68 year old assigned female at with a history of CVA, CKD on dialysis MWF, and left BKA presenting to the emergency department today with dark stools. Patient states that after dialysis today she noticed dark stools. Patient states that she is not taking any peptobismal or iron supplements. Patient denies any dizziness, lightheadedness, abdominal pain, nausea, vomiting, fever, chills, blurry vision, double vision, loss of vision, chest pain, difficulty breathing, shortness of breath, back pain, night sweats, pain with urination, increased urinary frequency, increased urinary urgency, blood in her urine, syncope or a near syncopal episode, recent trauma or falls, bowel incontinence, bladder incontinence, bowel retention, bladder retention, or any other complaints at this time. Onset (ago): hour(s) Relieving factors: none Exacerbating factors: none Associated symptoms: denies other symptoms Treatments prior to arrival: none Related Data Home Medications ?Medication ?Instructions ?Recorded ?Confirmed aspirin 81 mg tablet,delayed 81 mg PO BEDTIME 06/20/21 01/13/24 release atorvastatin 80 mg tablet 80 mg PO BEDTIME 06/20/21 01/13/24 clopidogrel 75 mg tablet 75 mg PO DAILY 06/20/21 01/13/24 magnesium oxide 400 mg (241.3 mg 400 mg PO DAILY 04/20/23 01/13/24 magnesium) tablet blood sugar diagnostic (OneTouch #10 ea 05/25/23 Ultra Test strips) insulin aspart U-100 100 unit/mL See Protocol subcut NEEDED PRN 05/25/23 01/13/24 (3 mL) subcutaneous pen (Novolog bs >200 FlexPen U-100 Insulin aspart) lancets 33 gauge (OneTouch Delica #100 ea 05/25/23 Plus Lancet) pen needle, diabetic 32 gauge x #1,200 ea 05/25/23 (Pentips) melatonin 5 mg tablet 5 - 10 mg PO BEDTIME PRN Sleep 09/21/23 01/13/24 sevelamer carbonate 800 mg tablet 800 mg PO TIDWM 10/08/23 01/13/24 albuterol sulfate 90 mcg/actuation 2 inh inhalation Q6H PRN shortness 01/02/24 01/13/24 breath activated powder inhaler of breath or wheezing cholecalciferol (vitamin D3) 1,250 1,250 mcg PO QWEEK 01/02/24 01/13/24 mcg (50,000 unit) capsule pantoprazole 40 mg tablet,delayed 40 mg PO DAILY@0630 01/02/24 01/13/24 release Previous Rx's ?Medication ?Instructions ?Recorded carvedilol 12.5 mg tablet 12.5 mg PO BIDWM #60 tabs 10/11/23 valsartan 80 mg tablet 80 mg PO BID #60 tabs 10/11/23 sennosides 8.6 mg tablet (Natural 17.2 mg (2 x 8.6 mg) PO BEDTIME 11/22/23 Senna Laxative) constipation #60 tabs hydrocortisone 1 % topical cream 1 appl topical TID PRN itching 12/15/23 (Preparation H Hydrocortisone) #28.35 grams lidocaine 5 % topical ointment 1 appl topical QID PRN pain #50 12/15/23 grams Allergies Allergy/AdvReac Type Severity Reaction Status Date / Time No Known Allergies Allergy Verified 02/02/24 17:17 Review of Systems 2 Constitutional: Constitutional: Reports no additional constitutional complaints, Denies chills, Denies fever(s) and Denies night sweats Eyes: Eyes: Reports no additional eye complaints, Denies blurry vision, Denies change in vision, Denies diplopia, Denies eye discharge, Denies loss of vision and Denies eye pain ENT: Denies dizziness Cardiovascular: Cardiovascular: Reports no additional cardiovascular complaints, Denies chest pain, Denies lightheadedness, Denies Loss of Consciousness and Denies dyspnea Respiratory: Respiratory: Reports no additional respiratory complaints and Denies dyspnea Gastrointestinal: Gastrointestinal: Reports no additional gastrointestinal complaints, Denies abdominal pain, Denies hematochezia, Denies change in bowel habits and Reports change in stool character (dark stools) Genitourinary: Genitourinary: Denies hematuria, Denies urinary frequency, Denies dysuria, Denies urinary incontinence, Denies urinary hesitancy and Denies urinary urgency Musculoskeletal: Musculoskeletal: Reports no additional musculoskeletal complaints, Denies numbness and Denies tingling Neurologic: Denies dizziness, Denies loss of vision, Denies numbness and Denies tingling Psychiatric: Psychiatric: Reports no additional psychiatric complaints Endocrine: Endocrine: Reports no additional endocrine complaints Hematologic/Lymphatic: Hematologic/Lymphatic: Reports no additional hematologic/lymphatic complaints Allergic/Immunologic: Allergic/Immunologic: Reports no additional allergic/immunologic complaints [facility] Past Medical History Attestation statement: The following information was validated with the patient. Source: old records reviewed and nursing notes reviewed Medical History Bilateral visual loss Open wnd toe-complicated Wound, open, hand with or without fingers with complication End stage renal disease on dialysis Congestive heart failure Hyperglycemia due to diabetes mellitus Anemia End stage renal disease Heart failure with reduced ejection fraction Dialysis patient, noncompliant Chronic kidney disease Thrombocytopenia CKD (chronic kidney disease) stage 4, GFR 15-29 ml/min Constipation Ischemic necrosis of finger Normocytic anemia Urinary tract infection due to ESBL Klebsiella Chronic heart failure with preserved ejection fraction (HFpEF) Hypomagnesemia Acute on chronic renal failure Essential hypertension HLD (hyperlipidemia) Non-ST elevated myocardial infarction Diabetes mellitus Nonischemic cardiomyopathy Irritable bowel syndrome with diarrhea Gastroparesis GERD (gastroesophageal reflux disease) Surgical History Status post amputation of finger H/O surgical amputation of finger History of laparoscopic cholecystectomy History of intestinal surgery Hx of eye surgery History of esophagogastroduodenoscopy (EGD) Hx of colonoscopy H/O: hysterectomy Family History Family History Father Lung cancer Mother Diabetes HTN (hypertension) Heart disease Sister Diabetes Heart disease Brother Heart disease Son Diabetes Daughter Diabetes Social History Social History Household Members: Children Household Members Other:: Daughter and grandson Housing: House Do you presently have visiting nurse or other home services: No (Grandson is a DISPENSARY CLERK that will start soon.) Unable to assess alcohol history related to: Unable to respond and Unknown Alcohol intake: never Comment: camera in place Patient Tobacco Use Status: Never used Tobacco e-Cigarette/Vaping Use: Never Used Second Hand Smoke Exposure: No Advance Directives: Yes Advance Directives on File: Yes Advance Directives Date on File: 01/04/23 Do you have a plan to hurt others: No Plan service: No Current occupational status: disabled Physical Exam ED Vital Signs: Vital Signs - 24 hr 02/02/24 16:55 02/02/24 18:38 02/02/24 19:24 Temperature 98.3 F 97.9 F 98.3 F Pulse Rate 74 72 73 Respiratory Rate 18 16 16 Blood Pressure 159/50 H 141/32 H 138/46 L Pulse Oximetry 94 94 94 Oxygen Delivery Method Room Air Room Air Room Air 02/02/24 19:58 Temperature 98.3 F Pulse Rate 73 Respiratory Rate 18 Blood Pressure 138/46 L Pulse Oximetry 94 Oxygen Delivery Method BMI result Body Mass Index 29.2 Const General: cooperative, no acute distress, alert and awake Nutritional Appearance: well nourished Orientation/consciousness: patient oriented x3 Limitations: no limitations HENMT Head: Yes normal to inspection and Yes atraumatic Ears: hearing grossly normal bilaterally and external ears normal General nose exam: Normal external nose present, no nasal discharge noted and no epistaxis Face and sinus: Yes normal facial exam, No abrasion and No laceration Mouth: Normal oral and palatal mucosa present, no drooling and no muffled voice Eyes General: appearance normal, both eyes and all related structures Periorbital: periorbital findings normal Eyelids: Yes eyelids normal Conjunctivae: conjunctivae normal Pupils: Equal, round and reactive pupils present EOM: EOMs intact bilaterally Neck Neck: Yes normal visual inspection, Yes full ROM and Yes no lymphadenopathy Chest Chest palpation & inspection: normal inspection of the chest Resp Effort & Inspection: normal respiratory effort and able to speak in complete sentences GI Rectal Exam - Female: visual inspection normal and other (dark stool - heme negative) Neuro General: patient oriented x3 and moves all extremities Cranial nerves: Yes Equal, round and reactive pupils present Cognition (Neuro): normal cognition Motor exam (neuro): 5/5 motor strength present throughout Sensory Exam: Normal double simultaneous stimulation for sensation Coordination: [id number] test normal Extrem Other: left BKA chronic for the patient Psych Appearance: grossly normal Mental Status: mental status grossly normal Affect: normal affect Attitude: cooperative Thought process: Normal thought process present Thought content: Normal thought content present Insight: Good insight present (Psych) Medical Decision Making Medical Decision Making [facility] Narrative: Patient is a 68 year old assigned female at with a history of CKD on dialysis, CVA, and left BKA presenting to the emergency department today with dark stools. Patient's physical exam was as noted in the physical exam portion of this note. Patient's blood work was unremarkable and OBS negative. Patient's EKG was unremarkable. Patient's clinical presentation is not consistent with a GI bleed. I explained my physical exam findings as well as all test results to the patient. I answered all questions asked by the patient. I stressed the importance of the patient taking her medication as prescribed. I stressed the importance of the patient following up with her primary care provider. I stressed the importance of the patient returning to the emergency department immediately if her symptoms were to worsen or if she were to develop any dizziness, shortness of breath, difficulty breathing, chest pain, blurry vision, loss of vision, nausea, vomiting, abdominal pain, fever, chills, back pain, or any other complaints. Patient verbalized agreement and understanding with this treatment plan and discharge. Differential Diagnosis Differential Diagnoses: The differential diagnosis associated with the presentation includes Dark stools GI bleed CKD Admission/Observation Consideration of admission/observation: Escalation of care including admission/observation considered Patient would have been admitted to the hospital had her work up had any findings where hospital admission was appropriate and her clinical presentation warranted hospital admission. Lab Data [facility] Lab Attestation statement: I reviewed the patient's lab results. My interpretation of these results are in the MDM Rationale portion of this note. 02/02/24 17:26 02/02/24 17:26 Labs: Lab Results 02/02/24 02/02/24 Range/Units 17:18 17:26 WBC 8.7 (4.8-10.8) X10*3/uL RBC 3.77 L (4.20-5.50) X10*6/uL Hgb 10.8 L (12.0-16.0) g/dl Hct 32.8 L (37.0-47.0) % MCV 87.0 (80.0-98.0) fL MCH 28.6 (27.0-33.0) pg MCHC 32.9 (31.0-35.0) g/dl RDW 14.4 (11.0-16.0) % Plt Count 173 D (160-400) X10*3/uL MPV 11.4 (9.4-12.3) fL Immature Gran % (Auto) 0.3 (0.0-0.4) % Neut % (Auto) 75.4 H (45-73) % Lymph % (Auto) 13.8 L (20-40) % Sierra % (Auto) 8.4 (2-11) % Eos % (Auto) 1.8 (0-4) % Baso % (Auto) 0.3 (0-2) % Lymph # (Auto) 1.2 (1.2-4.9) X10*3/uL Sierra # (Auto) 0.7 (0.1-1.2) X10*3/uL Eos # (Auto) 0.2 (0.0-0.4) X10*3/uL Baso # (Auto) 0.0 (0.0-0.2) X10*3/uL Abs Immat Gran (auto) 0.03 (0.00-0.03) X10*3/uL Absolute Neuts (auto) 6.5 (2.0-8.3) x10*3/uL Absolute Nucleated RBC 0.000 (0.0-0.012) X10*3/uL Nucleated RBC % (auto) 0.0 (0.0-0.2) /100WBC PT 13.7 H (11.1-13.3) SEC INR 1.1 (0.9-1.1) APTT 25.1 L (26.0-36.8) SEC Sodium 137 (135-145) mmol/L Potassium 3.9 (3.3-5.1) mmol/L Chloride 99 (96-108) mmol/L Carbon Dioxide 26 (22-29) mmol/L Anion Gap 16 (12-20) BUN 21 H (9-16) mg/dL Creatinine 2.39 H (0.5-1.4) mg/dL Estim Creat Clear Calc 18.8 Estimated GFR 20 Random Glucose 433 H* (60-115) mg/dL Calcium 8.2 L (8.4-10.2) mg/dL Magnesium 1.9 (1.6-2.6) mg/dL Total Bilirubin 0.2 (0.0-1.0) mg/dL AST 12 (5-31) U/L ALT 10 (0-31) U/L Alkaline Phosphatase 247 H (39-117) U/L Total Protein 6.8 (6.5-8.0) g/dL Albumin 3.3 L (3.5-5.0) g/dL Stool Occult Blood NEGATIVE (NEGATIVE) Influenza Type A (PCR) Cancelled Influenza Type B (PCR) Cancelled RSV RNA Qual (PCR) Cancelled SARS-CoV-2 RNA (RT-PCR) Cancelled Blood Type B Positive Antibody Screen NEGATIVE Independent Interpretation I performed an independent interpretation of an: EKG Interpretation: Vent. Rate: 074 BPM Atrial Rate: 074 BPM P-R Int: 160 ms QRS Dur: 120 ms QT Int: 450 ms P-R-T Axes: 045 012 237 degrees QTc Int: 499 ms Normal sinus rhythm Non-specific intra-ventricular conduction delay Marked ST abnormality, possible inferior subendocardial injury Abnormal ECG When compared with ECG of 31-JAN-2024 10:38, No significant change was found DD/ 1702 Independent Historian Clinical information obtained from an independent historian. History obtained from or confirmed by: EMS (EMS provided additional history and confirmed the history provided by the patient.) Discharge Plan Discharge Clinical Impression: Dark stools Patient Disposition: Home, Self-Care Additional Instructions: Your blood work was reassuring and showed no evidence of acute bleeding. Your stool was negative for any blood. Follow up with your primary care provider. Return to the emergency department immediately if your symptoms worsen or if you develop any dizziness, shortness of breath, difficulty breathing, chest pain, blurry vision, loss of vision, nausea, vomiting, abdominal pain, fever, chills, back pain, or any other complaints. Prescriptions: No Action atorvastatin 80 mg tablet 80 mg PO BEDTIME clopidogrel 75 mg tablet 75 mg PO DAILY aspirin 81 mg tablet,delayed release (DR/EC) 81 mg PO BEDTIME magnesium oxide 400 mg (241.3 mg magnesium) tablet 400 mg PO DAILY sevelamer carbonate 800 mg tablet 800 mg PO TIDWM carvedilol 12.5 mg Tablet 12.5 mg PO BIDWM Qty: 60 1RF Protocol: Hold for SBP/HR < HOLD for SBP < : 90 HOLD for HR < : 60 valsartan 80 mg Tablet 80 mg PO BID Qty: 60 1RF Protocol: Hold for SBP< HOLD for SBP < : 90 lidocaine 5 % ointment 1 appl topical QID PRN (Reason: pain) Qty: 50 0RF Rx Instructions: applied to anal area 15 minutes prior to attempted bowel movement hydrocortisone [Preparation H Hydrocortisone] 1 % cream 1 appl topical TID PRN (Reason: itching) Qty: 28.35 0RF melatonin 5 mg tablet 5 - 10 mg PO BEDTIME PRN (Reason: Sleep) cholecalciferol (vitamin D3) 1,250 mcg (50,000 unit) capsule 1,250 mcg PO QWEEK pantoprazole 40 mg tablet,delayed release (DR/EC) 40 mg PO DAILY@0630 Rx Instructions: take one tablet half an hour before breakfast albuterol sulfate 90 mcg/actuation aerosol powdr breath activated 2 inh inhalation Q6H PRN (Reason: shortness of breath or wheezing) sennosides [Natural Senna Laxative] 8.6 mg tablet 17.2 mg PO BEDTIME Qty: 60 3RF (DME) lancets [OneTouch Delica Plus Lancet] 33 gauge misc See Rx Instructions .ROUTE TID Qty: 100 Rx Instructions: As directed (DME) pen needle, diabetic [Pentips] 32 gauge x 5/32 needle See Rx Instructions .ROUTE DIRECTED Qty: 1200 Rx Instructions: As directed (DME) OneTouch Ultra Test Strip See Rx Instructions .ROUTE TID Qty: 10 Rx Instructions: As directed insulin aspart U-100 [Novolog FlexPen U-100 Insulin] 100 unit/mL (3 mL) insulin pen See Protocol subcut NEEDED PRN (Reason: bs >200) Protocol: Insulin Correction Scale Less than or equal to 110 ---- Give (units): 0 111 to 150 Give (units): 0 151 to 200 Give (units): 2 201 to 250 Give (units): 4 251 to 300 Give (units): 6 301 to 350 Give (units): 8 Greater than 350 Give (units): 10 Call MD if Blood Glucose > : 350 Rx Instructions: 8-12 units SLIDING SCALE Referrals: Alexys Avila MD [Primary Care Provider] - Interventions: ED Discharge Assessment Last Done: 02/02/24 19:58 Discharge Date/Time: 02/02/24 20:00 Print Language: Bangladeshi
[2024-02-02 16:55] VITALS: BP 159/50; PULSE 74; RESP 18; TEMP 36.8; O2SAT 94
[2024-02-02 17:16] VITALS: BMI 29.2
[2024-02-02 17:30] LABS: MANUAL DIFF FLAG NO
[2024-02-02 17:31] LABS: OBS Int Ctl Valid YES; OBS1 NEGATIVE (NEGATIVE)
[2024-02-02 17:32] LABS: Basophils Percent Auto 0.3 % (0-2); Eosinophils Absolute Auto 0.2 X10*3/uL (0.0-0.4); Eosinophils Percent Auto 1.8 % (0-4); Hematocrit 32.8 % (37.0-47.0); Hemoglobin 10.8 g/dl (12.0-16.0); Imm Gran Abs Auto 0.03 X10*3/uL (0.00-0.03); Imm Gran Pct Auto 0.3 % (0.0-0.4); Lymphocytes Absolute Auto 1.2 X10*3/uL (1.2-4.9); Lymphocytes Percent Auto 13.8 % (20-40); Mean Corpuscular HGB Conc 32.9 g/dl (31.0-35.0); Mean Corpuscular Hemoglobin 28.6 pg (27.0-33.0); Mean Platelet Volume 11.4 fL (9.4-12.3); Monocytes Absolute Auto 0.7 X10*3/uL (0.1-1.2); Monocytes Percent Auto 8.4 % (2-11); Neutrophils Absolute Auto 6.5 x10*3/uL (2.0-8.3); Neutrophils Percent Auto 75.4 % (45-73); Platelet Count 173 X10*3/uL (160-400); Red Blood Count 3.77 X10*6/uL (4.20-5.50); Red Cell Distribution Width 14.4 % (11.0-16.0); White Blood Count 8.7 X10*3/uL (4.8-10.8)
[2024-02-02 17:40] LABS: INTERNATIONAL NORM RATIO 1.1 (0.9-1.1); Prothrombin Time 13.7 SEC (11.1-13.3)
[2024-02-02 17:43] LABS: Partial Thromboplastin Time 25.1 SEC (26.0-36.8)
[2024-02-02 18:13] LABS: Alanine Aminotransferase 10 U/L (0-31); Albumin Level 3.3 g/dL (3.5-5.0); Alkaline Phosphatase 247 U/L (39-117); Anion Gap 16 (12-20); Aspartate Amino Transferase 12 U/L (5-31); Bilirubin Total 0.2 mg/dL (0.0-1.0); Blood Urea Nitrogen 21 mg/dL (9-16); Calcium 8.2 mg/dL (8.4-10.2); Carbon Dioxide 26 mmol/L (22-29); Chloride 99 mmol/L (96-108); Creatinine Clr Calc Pharmacy 18.8; Estimated Glomerular Filt Rate 20; Glucose Random 433 mg/dL (60-115); Magnesium 1.9 mg/dL (1.6-2.6); Potassium 3.9 mmol/L (3.3-5.1); Sodium 137 mmol/L (135-145); Total Protein 6.8 g/dL (6.5-8.0)
--- NOTE | 2024-02-02 18:17 | PC.NURSE ---
IV established. Labs obtained and sent. Resting quietly in room with call peck in reach.
[2024-02-02 18:38] VITALS: BP 141/32; PULSE 72; RESP 16; TEMP 36.6; O2SAT 94
--- NOTE | 2024-02-02 19:13 | PC.NURSE ---
Report from Andrews Gandhi. Patient waiting DC home by ems
[2024-02-02 19:24] VITALS: BP 138/46; PULSE 73; RESP 16; TEMP 36.8; O2SAT 94
--- NOTE | 2024-02-02 19:25 | MHC.EDTECH ---
Addendum entered by Norma Hunter 02/02/24 19:26: Took over care at 1900 Original Note: This tech took over care of patient at 2300,hourly rounds and vitals completed,awaiting transport to go back home at this time,call peck in reach
[2024-02-02 19:58] VITALS: BP 138/46; PULSE 73; RESP 18; TEMP 36.8; O2SAT 94
== END 2024-02-02 20:00 | disposition home or self-care (01) ==
PROVIDERS: Physician Assistant Medical; Emergency Provider Emergency Medicine Emergency Medical Services; PCP Internal Medicine
DX: R19.5 Other fecal abnormalities (principal); E11.22 Type 2 diabetes mellitus with diabetic chronic kidney disease; I13.0 Hypertensive heart and chronic kidney disease with heart failure and stage 1 through stage 4 chronic kidney disease, or unspecified chronic kidney disease; I50.9 Heart failure, unspecified; N18.6 End stage renal disease; Z86.73 Personal history of transient ischemic attack (TIA), and cerebral infarction without residual deficits; Z89.512 Acquired absence of left leg below knee; Z99.2 Dependence on renal dialysis
CPT/HCPCS: 80053; 82272; 83735; 85025; 85610; 85730; 86850; 86900; 86901; 93005; 99283; 99285

== ENCOUNTER → 2024-02-02 16:53 | Outpatient (BNV) | payer OTHER, SELFPAY | PROVIDERS: Emergency Provider Emergency Medicine Emergency Medical Services; PCP Internal Medicine; Visit Provider Internal Medicine | DX: I45.81 Long QT syndrome (principal) | CPT/HCPCS: 93010 ==

== ENCOUNTER 2024-02-07 18:25 | Inpatient (IN) | payer OTHER, SELFPAY ==
--- NOTE | ~2024-02-07 | XR_ITS ---
EXAMINATION: XR CHEST CLINICAL INFORMATION: Cough and shortness of breath. COMPARISON: Chest radiograph 01/31/2024. TECHNIQUE: Frontal view of the chest was obtained. FINDINGS: Stable cardiomegaly. Large bore right-sided dialysis catheter with the tip projecting at the level of the proximal right atrium. Increased focal airspace opacities projecting over the right infrahilar region. Diffusely increased bronchovascular markings. No pleural effusion or pneumothorax. No acute osseous findings. XR/XR chest 1V IMPRESSION: 1. Indeterminate focal airspace opacities in the right perihilar/infrahilar region which could be related with atelectasis, aspiration or pneumonia. Recommend short-term follow-up. 2. Increased bronchovascular markings suspicious for pulmonary edema in the context of cardiomegaly.
[2024-02-07 18:45] VITALS: BP 150/55; BP 175/52; PULSE 76; PULSE 77; RESP 20; TEMP 36.9; O2SAT 95; O2SAT 97; BMI 29.5
--- NOTE | 2024-02-07 18:47 | ED_ITS ---
HPI - SOB/Dyspnea General Chief Complaint: General Medical Stated Complaint: COUGH WEAKNESS Time Seen by Provider: 02/07/24 18:42 Source: patient Mode of arrival: EMS Limitations: no limitations History of Present Illness HPI Narrative: Patient is a 68-year-old female past medical history of ESRD on HD M/W/F, CVA, DM, history of left BKA, NSTEMI, gastroparesis, HFrEF, anemia, COPD, CHF, nonischemic cardiomyopathy, multiple partial finger amputations who presents emergency department for evaluation shortness of breath. She reports a cough and generalized weakness with increasing shortness of breath and fatigued today, pain diffusely throughout her back chest neck and head. She completed her dialysis treatment. She reports that she was diagnosed with pneumonia 3 weeks ago and has not felt better. Denies any improvement with her inhalers. Denies any fevers or chills. Denies known sick contacts. Related Data Home Medications ?Medication ?Instructions ?Recorded ?Confirmed aspirin 81 mg tablet,delayed 81 mg PO BEDTIME 06/20/21 01/13/24 release atorvastatin 80 mg tablet 80 mg PO BEDTIME 06/20/21 01/13/24 clopidogrel 75 mg tablet 75 mg PO DAILY 06/20/21 01/13/24 magnesium oxide 400 mg (241.3 mg 400 mg PO DAILY 04/20/23 01/13/24 magnesium) tablet blood sugar diagnostic (ProsperTouch #10 ea 05/25/23 Ultra Test strips) insulin aspart U-100 100 unit/mL See Protocol subcut NEEDED PRN 05/25/23 01/13/24 (3 mL) subcutaneous pen (Novolog bs >200 FlexPen U-100 Insulin aspart) lancets 33 gauge (ProsperTouch Delica #100 ea 05/25/23 Plus Lancet) pen needle, diabetic 32 gauge x #1,200 ea 05/25/23 5/32 (Pentips) melatonin 5 mg tablet 5 - 10 mg PO BEDTIME PRN Sleep 09/21/23 01/13/24 sevelamer carbonate 800 mg tablet 800 mg PO TIDWM 10/08/23 01/13/24 albuterol sulfate 90 mcg/actuation 2 inh inhalation Q6H PRN shortness 01/02/24 01/13/24 breath activated powder inhaler of breath or wheezing cholecalciferol (vitamin D3) 1,250 1,250 mcg PO QWEEK 01/02/24 01/13/24 mcg (50,000 unit) capsule pantoprazole 40 mg tablet,delayed 40 mg PO DAILY@0630 01/02/24 01/13/24 release Previous Rx's ?Medication ?Instructions ?Recorded carvedilol 12.5 mg tablet 12.5 mg PO BIDWM #60 tabs 10/11/23 valsartan 80 mg tablet 80 mg PO BID #60 tabs 10/11/23 sennosides 8.6 mg tablet (Natural 17.2 mg (2 x 8.6 mg) PO BEDTIME 11/22/23 Senna Laxative) constipation #60 tabs hydrocortisone 1 % topical cream 1 appl topical TID PRN itching 12/15/23 (Preparation H Hydrocortisone) #28.35 grams lidocaine 5 % topical ointment 1 appl topical QID PRN pain #50 12/15/23 grams Allergies Allergy/AdvReac Type Severity Reaction Status Date / Time lobster AdvReac Hives Verified 02/07/24 18:49 Review of Systems 2 Review of Systems: Yes all other systems are reviewed and are negative [facility], [facility] Past Medical History Attestation statement: The following information was validated with the patient. Source: old records reviewed Medical History Bilateral visual loss Open wnd toe-complicated Wound, open, hand with or without fingers with complication End stage renal disease on dialysis Congestive heart failure Hyperglycemia due to diabetes mellitus Anemia End stage renal disease Heart failure with reduced ejection fraction Dialysis patient, noncompliant Chronic kidney disease Thrombocytopenia CKD (chronic kidney disease) stage 4, GFR 15-29 ml/min Constipation Ischemic necrosis of finger Normocytic anemia Urinary tract infection due to ESBL Klebsiella Chronic heart failure with preserved ejection fraction (HFpEF) Hypomagnesemia Acute on chronic renal failure Essential hypertension HLD (hyperlipidemia) Non-ST elevated myocardial infarction Diabetes mellitus Nonischemic cardiomyopathy Irritable bowel syndrome with diarrhea Gastroparesis GERD (gastroesophageal reflux disease) Surgical History Status post amputation of finger H/O surgical amputation of finger History of laparoscopic cholecystectomy History of intestinal surgery Hx of eye surgery History of esophagogastroduodenoscopy (EGD) Hx of colonoscopy H/O: hysterectomy Family History Family History Father Lung cancer Mother Diabetes HTN (hypertension) Heart disease Sister Diabetes Heart disease Brother Heart disease Son Diabetes Daughter Diabetes Social History Social History Household Members: Children Household Members Other:: Daughter and grandson Housing: House Do you presently have visiting nurse or other home services: No (Grandson is a [employer] MECHANIC that will start soon.) Unable to assess alcohol history related to: Unable to respond and Unknown Alcohol intake: never Comment: camera in place Patient Tobacco Use Status: Never used Tobacco e-Cigarette/Vaping Use: Never Used Second Hand Smoke Exposure: No Advance Directives: Yes Advance Directives on File: Yes Advance Directives Date on File: 01/04/23 Do you have a plan to hurt others: No Plan service: No Current occupational status: disabled Physical Exam 2 Vital Signs: Vital Signs: Last Vital Signs Temp 99.2 F 02/07/24 22:44 Pulse 73 02/07/24 22:44 Resp 17 02/07/24 22:44 BP 157/45 H 02/07/24 22:44 Pulse Ox 94 02/07/24 22:44 O2 Del Method Nasal Cannula 02/07/24 22:44 O2 Flow Rate 3 02/07/24 22:44 Oxygen Flow Rate 2 02/07/24 18:45 BMI result Body Mass Index 29.5 Appearance: Alert.?Oriented to person, place and time. No acute distress.?Normal affect. Eyes: Pupils equal, round and reactive to light.? ENT: Pharynx normal.?? Neck: Normal inspection.? Neck supple.?? CVS: Heart sounds normal. Normal heart rate and rhythm.? Pulses normal.?? Respiratory: No respiratory distress.? Lung sounds reveal expiratory wheezing in the upper lobes, rales in the left lower lobe, diminished right lower lobe. Abdomen: Soft and non-tender. Normoactive bowel sounds. No pulsatile mass.?? Skin: Skin warm and dry.? Normal skin color.? Normal skin turgor.?? Extremities: No lower extremity edema on the right, left BKA. Multiple partial finger amputation.? Neuro: Moves all extremities spontaneously. Sensation intact bilaterally. CN II- XII intact. No focal neuro deficits. Ambulates with normal steady gait. Course Reevaluation(s) Reevaluation #1: Viral panel is negative. CBC reveals a mild leukocytosis of 11.9, normocytic anemia, thrombocytopenia. Bicarb minimally elevated at 30. Renal function at baseline. Non-anion gap hyperglycemia, venous gas without evidence of acidosis. BNP is significantly elevated 4725, CXR with increased bronchovascular marking concerning for pulmonary edema cardiomegaly, focal airspace opacity in the right perihilar/infrahilar region atelectasis versus aspiration or pneumonia. No recent vomiting, suspect less likely aspiration, will cover for pneumonia with Rocephin and doxycycline. Plan for admission to medicine service due to hypoxic respiratory failure and CHF exacerbation/PNA Time: 21:37 Medications Administered Generic Name Dose Route Start Last Admin Trade Name Freq PRN Reason Stop Dose Admin Heparin Sodium (Porcine) 5,000 unit 02/07/24 22:00 02/07/24 22:36 Heparin Sodium,Porcine 5,000 Unit/Ml Vial SUBCUT 5,000 unit Q12H MATTY Administration Insulin Glargine 10 unit 02/07/24 22:25 02/07/24 23:49 Insulin Glargine,Hum.Rec.Anlog 100 Unit/Ml 10 Ml Vial SUBCUT 10 unit BEDTIME MATTY Administration Sodium Chloride 3 ml 02/08/24 00:00 02/08/24 00:01 0.9 % Sodium Chloride Flush 3 Ml Syringe IVFLUSH 3 ml QSHIFT MATTY Administration Discontinued Medications Generic Name Dose Route Start Last Admin Trade Name Freq PRN Reason Stop Dose Admin Albuterol Sulfate 2.5 mg/ 0 mg 02/07/24 19:16 02/07/24 19:20 Albuterol/Ipratropium 3 ml INHALE 02/07/24 19:17 1 dose ONCE ONE Administration Ceftriaxone Sodium 1 gm/ 50 mls @ 100 mls/hr 02/07/24 21:35 02/07/24 23:37 Sodium Chloride IV 02/07/24 22:04 Infused ONCE ONE Infusion Doxycycline Hyclate 100 mg/ 250 mls @ 166.67 mls/hr 02/07/24 21:35 02/07/24 23:49 Sodium Chloride IV 02/07/24 23:04 166.67 mls/hr ONCE ONE Administration Insulin Human Lispro 5 unit 02/07/24 21:32 02/07/24 22:35 Insulin Lispro 100 Unit/Ml 3 Ml Vial SUBCUT 02/07/24 21:33 5 unit ONCE ONE Administration Methylprednisolone Sodium Succinate 80 mg 02/07/24 19:02 02/07/24 20:26 Methylprednisolone Sod Succ 125 Mg/2 Ml Vial IVPUSH 02/07/24 19:03 80 mg ONCE ONE Administration Medical Decision Making Medical Decision Making [facility] Narrative: Patient is a 68-year-old female past medical history of ESRD on HD M/W/F, CVA, DM, history of left BKA, NSTEMI, gastroparesis, HFrEF, anemia, COPD, CHF, nonischemic cardiomyopathy, multiple partial finger amputations presenting to the emergency department for evaluation of shortness of breath cough chest pain headache in myalgias. She has faint expiratory wheezing in the upper lobes, rales in the left lower lobe, diminished right lower lobe. She reportedly completed her entire course of dialysis today, making pulmonary edema less likely etiology versus COPD exacerbation. On arrival to the emergency department her O2 saturation was 84-85% on room air, requiring O2 via nasal cannula at 2 L per O2 saturation above 95%. At this time she is afebrile, no hypotension, no tachycardia. Brown protocol ordered, patient received Solu- Medrol IV. Differential Diagnosis Differential Diagnoses: The differential diagnosis associated with the presentation includes (CHF exacerbation, COPD exacerbation asthma, viral syndrome, pneumonia) Admission/Observation Consideration of admission/observation: Escalation of care including admission/observation considered (See narrative above and course narrative for further detail) Consult Healthcare Provider Management of the patient was discussed with: Hospitalist Lab Data [facility] Lab Attestation statement: I reviewed the patient's lab results. (See course narrative) 02/07/24 19:51 02/07/24 19:51 Labs: Lab Results 02/07/24 02/07/24 Range/Units 19:51 20:18 WBC 11.9 H (4.8-10.8) X10*3/uL RBC 3.70 L (4.20-5.50) X10*6/uL Hgb 10.5 L (12.0-16.0) g/dl Hct 32.7 L (37.0-47.0) % MCV 88.4 (80.0-98.0) fL MCH 28.4 (27.0-33.0) pg MCHC 32.1 (31.0-35.0) g/dl RDW 14.6 (11.0-16.0) % Plt Count 198 (160-400) X10*3/uL MPV 10.3 (9.4-12.3) fL Immature Gran % (Auto) 0.5 H (0.0-0.4) % Neut % (Auto) 82.3 H (45-73) % Lymph % (Auto) 9.6 L (20-40) % [place] % (Auto) 7.0 (2-11) % Eos % (Auto) 0.3 (0-4) % Baso % (Auto) 0.3 (0-2) % Lymph # (Auto) 1.1 L (1.2-4.9) X10*3/uL [place] # (Auto) 0.8 (0.1-1.2) X10*3/uL Eos # (Auto) 0.0 (0.0-0.4) X10*3/uL Baso # (Auto) 0.0 (0.0-0.2) X10*3/uL Abs Immat Gran (auto) 0.06 H (0.00-0.03) X10*3/uL Absolute Neuts (auto) 9.8 H (2.0-8.3) x10*3/uL Absolute Nucleated RBC 0.030 H (0.0-0.012) X10*3/uL Nucleated RBC % (auto) 0.3 H (0.0-0.2) /100WBC VBG pH 7.48 H (7.32-7.43) VBG pCO2 47 mmHg VBG pO2 58 mmHg VBG HCO3 35 H (22-26) mmol/L VBG O2 Saturation 88.0 % VBG Base Excess 10.7 mmol/L Sodium 137 (135-145) mmol/L Potassium 3.4 (3.3-5.1) mmol/L Chloride 94 L (96-108) mmol/L Carbon Dioxide 30 H (22-29) mmol/L Anion Gap 16 (12-20) BUN 13 (9-16) mg/dL Creatinine 1.99 H (0.5-1.4) mg/dL Estim Creat Clear Calc 20.7 Estimated GFR 25 Random Glucose 365 H* (60-115) mg/dL Lactic Acid 1.8 (0.5-2.0) mmol/L Calcium 8.3 L (8.4-10.2) mg/dL Magnesium 1.8 (1.6-2.6) mg/dL Total Bilirubin 0.3 (0.0-1.0) mg/dL AST 8 (5-31) U/L ALT 7 (0-31) U/L Alkaline Phosphatase 188 H (39-117) U/L Troponin I High Sens 24.7 H (<3.5-17.0) ng/L B-Natriuretic Peptide 4725 H (<100) pg/mL Total Protein 6.6 (6.5-8.0) g/dL Albumin 3.1 L (3.5-5.0) g/dL Beta-Hydroxybutyrate 0.06 (0.02-0.27) mmol/L Influenza Type A (PCR) NEGATIVE (Negative) Influenza Type B (PCR) NEGATIVE (Negative) RSV RNA Qual (PCR) NEGATIVE (Negative) SARS-CoV-2 RNA (RT-PCR) NEGATIVE (Negative) Independent Interpretation I performed an independent interpretation of an: EKG and Plain X-Ray (Opacity right perihilar, pulmonary congestion) Interpretation: Rate: 76 Rhythm:? Sinus rhythm Normal P waves.? Normal DONNIE.?? Normal QRS complex.?? ST T wave :??T-wave inversions in inferior leads and V6 as seen previously with LVH pattern qTC: Prolonged; 513 prior studies:? 02/02/2024, unchanged. Reviewed with ED attending Dr. Church The study has been interpreted contemporaneously by me. Radiology Impression Discussion of test interpretation with radiology: I have reviewed the radiologist's reading. Radiologist Impression: XR/XR chest 1V IMPRESSION: 1. Indeterminate focal airspace opacities in the right perihilar/infrahilar region which could be related with atelectasis, aspiration or pneumonia. Recommend short-term follow-up. 2. Increased bronchovascular markings suspicious for pulmonary edema in the context of cardiomegaly. Independent Historian Clinical information obtained from an independent historian. History obtained from or confirmed by: EMS External Record Review External record reviewed: Outpatient record Discharge Plan Discharge Clinical Impression: Acute hypoxemic respiratory failure, Pneumonia, Acute exacerbation of congestive heart failure Patient Disposition: Admitted As Inpatient
--- NOTE | 2024-02-07 18:52 | ECG_ITS ---
Test Reason : GEN MED Blood Pressure : / mmHG Vent. Rate : 076 BPM Atrial Rate : 076 BPM P-R Int : 148 ms QRS Dur : 128 ms QT Int : 452 ms P-R-T Axes : 061 062 263 degrees QTc Int : 508 ms Sinus rhythm with occasional , and consecutive Premature ventricular complexes Non-specific intra-ventricular conduction block Minimal voltage criteria for LVH, may be normal variant ( Heriberto product ) Cannot rule out Anterior infarct , age undetermined T wave abnormality, consider inferior ischemia Abnormal ECG When compared with ECG of 02-FEB-2024 17:02, Premature ventricular complexes are now Present Referred By: Kadi Crawford Electronically Signed By:
--- NOTE | 2024-02-07 19:08 | PC.NURSE ---
This tech writer assumed care of this Pt at 1900. Pt A&Ox3, reports increasing cough and SOB x 1 week. Lung sounds clear, diminished to right lower lobe. SpO2 98% on 2L via NC. Skin intact, BKA to left.
[2024-02-07] MEDS: Albuterol Sulfate 2.5 MG, Albuterol/Iprat 2.5/0.5MG 3 ML 3 ML INHALE (19:20)
[2024-02-07 19:21] VITALS: PULSE 76; RESP 20; O2SAT 97
[2024-02-07 19:58] LABS: MANUAL DIFF FLAG NO
[2024-02-07 19:59] LABS: Venous Blood Gas Refer to POC result
[2024-02-07 20:01] LABS: Basophils Percent Auto 0.3 % (0-2); Eosinophils Percent Auto 0.3 % (0-4); Hematocrit 32.7 % (37.0-47.0); Hemoglobin 10.5 g/dl (12.0-16.0); Imm Gran Abs Auto 0.06 X10*3/uL (0.00-0.03); Imm Gran Pct Auto 0.5 % (0.0-0.4); Lymphocytes Absolute Auto 1.1 X10*3/uL (1.2-4.9); Lymphocytes Percent Auto 9.6 % (20-40); Mean Corpuscular HGB Conc 32.1 g/dl (31.0-35.0); Mean Corpuscular Hemoglobin 28.4 pg (27.0-33.0); Mean Corpuscular Volume 88.4 fL (80.0-98.0); Mean Platelet Volume 10.3 fL (9.4-12.3); Monocytes Absolute Auto 0.8 X10*3/uL (0.1-1.2); NRBC Pct Auto 0.3 /100WBC (0.0-0.2); Neutrophils Absolute Auto 9.8 x10*3/uL (2.0-8.3); Neutrophils Percent Auto 82.3 % (45-73); Platelet Count 198 X10*3/uL (160-400); Red Cell Distribution Width 14.6 % (11.0-16.0); White Blood Count 11.9 X10*3/uL (4.8-10.8)
[2024-02-07 20:07] LABS: VBG Base Excess 10.7 mmol/L; VBG HCO3 35 mmol/L (22-26); VBG pCO2 47 mmHg; VBG pH 7.48 (7.32-7.43); VBG pO2 58 mmHg
[2024-02-07 20:23] LABS: Lactic Acid 1.8 mmol/L (0.5-2.0)
[2024-02-07 20:26] LABS: Beta-Hydroxybutyrate 0.06 mmol/L (0.02-0.27)
[2024-02-07] MEDS: methylPREDNISolone Sod Succ 125 MG/2 ML VIAL 80 MG IVPUSH (20:26)
[2024-02-07 20:30] LABS: B Type Natriuretic Peptide 4725 pg/mL (<100)
[2024-02-07 20:34] LABS: Troponin-I High Sensitivity 24.7 ng/L (<3.5-17.0)
[2024-02-07 20:37] LABS: Alanine Aminotransferase 7 U/L (0-31); Albumin Level 3.1 g/dL (3.5-5.0); Alkaline Phosphatase 188 U/L (39-117); Anion Gap 16 (12-20); Aspartate Amino Transferase 8 U/L (5-31); Bilirubin Total 0.3 mg/dL (0.0-1.0); Blood Urea Nitrogen 13 mg/dL (9-16); Calcium 8.3 mg/dL (8.4-10.2); Carbon Dioxide 30 mmol/L (22-29); Chloride 94 mmol/L (96-108); Creatinine Clr Calc Pharmacy 20.7; Estimated Glomerular Filt Rate 25; Glucose Random 365 mg/dL (60-115); Magnesium 1.8 mg/dL (1.6-2.6); Potassium 3.4 mmol/L (3.3-5.1); Sodium 137 mmol/L (135-145); Total Protein 6.6 g/dL (6.5-8.0)
[2024-02-07 21:20] LABS: Influenza A PCR NEGATIVE (Negative); Influenza B PCR NEGATIVE (Negative); Resp Syncy Virus RNA Qual PCR NEGATIVE (Negative); SARS COV2 PCR INHOUSE NEGATIVE (Negative)
--- NOTE | 2024-02-07 22:01 | PM.IMHP ---
History of Present Illness Date of Service: 02/07/24 Chief Complaint: Dyspnea This is a 68-year-old female with pertinent history of ESRD on hemodialysis (Monday, Monday, Monday), congestive heart failure with reduced ejection fraction, insulin-dependent type 2 diabetes mellitus, mixed hyperlipidemia, essential hypertension, history of CVA, mood disorder who presents to the emergency department for evaluation of dyspnea. History obtained with the help of seismic interpreter. Patient states her symptoms started one day prior to presentation. She started having cough with intermittent purulent sputum. Also has associated dyspnea. Unclear PND and orthopnea. Patient denies chest discomfort, palpitations, abdominal pain, changes in urinary or bowel habits. Patient denies coughing or choking with food. In the ER, patient was found to be satting 84% on RA. Imaging with right sided pna and vascular congestion. Found to have leukocytosis and elevated BNP Review of Systems Constitutional: Constitutional: Reports no additional constitutional complaints Cardiovascular: Cardiovascular: Reports dyspnea on exertion Respiratory: Respiratory: Reports cough and Reports dyspnea on exertion Gastrointestinal: Gastrointestinal: Reports no additional gastrointestinal complaints Genitourinary: Genitourinary: Reports no additional female genitourinary complaints Musculoskeletal: Musculoskeletal: Reports no additional musculoskeletal complaints [facility] Medical History Bilateral visual loss Open wnd toe-complicated Wound, open, hand with or without fingers with complication End stage renal disease on dialysis Congestive heart failure Hyperglycemia due to diabetes mellitus Anemia End stage renal disease Heart failure with reduced ejection fraction Dialysis patient, noncompliant Chronic kidney disease Thrombocytopenia CKD (chronic kidney disease) stage 4, GFR 15-29 ml/min Constipation Ischemic necrosis of finger Normocytic anemia Urinary tract infection due to ESBL Klebsiella Chronic heart failure with preserved ejection fraction (HFpEF) Hypomagnesemia Acute on chronic renal failure Essential hypertension HLD (hyperlipidemia) Non-ST elevated myocardial infarction Diabetes mellitus Nonischemic cardiomyopathy Irritable bowel syndrome with diarrhea Gastroparesis GERD (gastroesophageal reflux disease) Family History Father Lung cancer Mother Diabetes HTN (hypertension) Heart disease Sister Diabetes Heart disease Brother Heart disease Son Diabetes Daughter Diabetes Surgical History Status post amputation of finger H/O surgical amputation of finger History of laparoscopic cholecystectomy History of intestinal surgery Hx of eye surgery History of esophagogastroduodenoscopy (EGD) Hx of colonoscopy H/O: hysterectomy Social History Household Members: Children Household Members Other:: Daughter and grandson Housing: House Do you presently have visiting nurse or other home services: No (Grandson is a PRODUCT SAFETY TECHNICAL ASSISTANT that will start soon.) Unable to assess alcohol history related to: Unable to respond and Unknown Alcohol intake: never Comment: camera in place Patient Tobacco Use Status: Never used Tobacco e-Cigarette/Vaping Use: Never Used Second Hand Smoke Exposure: No Advance Directives: Yes Advance Directives on File: Yes Advance Directives Date on File: 01/04/23 Do you have a plan to hurt others: No Plan service: No Current occupational status: disabled Meds Allergies Allergy/AdvReac Type Severity Reaction Status Date / Time lobster AdvReac Hives Verified 02/07/24 18:49 Active Medications: Current Medications Ceftriaxone Sodium 1 gm/ (Sodium Chloride) 50 mls @ 100 mls/hr IV ONCE ONE Stop: 02/07/24 22:04 Doxycycline Hyclate 100 mg/ (Sodium Chloride) 250 mls @ 166.67 mls/hr IV ONCE ONE Stop: 02/07/24 23:04 Home Medications ?Medication ?Instructions ?Recorded ?Confirmed ?Last Taken ?Type aspirin 81 mg tablet,delayed 81 mg PO BEDTIME 06/20/21 01/13/24 09/20/23 History release atorvastatin 80 mg tablet 80 mg PO BEDTIME 06/20/21 01/13/24 09/20/23 History clopidogrel 75 mg tablet 75 mg PO DAILY 06/20/21 01/13/24 09/20/23 History magnesium oxide 400 mg (241.3 mg 400 mg PO DAILY 04/20/23 01/13/24 09/20/23 History magnesium) tablet blood sugar diagnostic (The RoundtableTouch #10 ea 05/25/23 Unknown History Ultra Test strips) insulin aspart U-100 100 unit/mL See Protocol subcut NEEDED PRN 05/25/23 01/13/24 09/20/23 History (3 mL) subcutaneous pen (Novolog bs >200 FlexPen U-100 Insulin aspart) lancets 33 gauge (OneTouch Delreid #100 ea 05/25/23 Unknown History Plus Lancet) pen needle, diabetic 32 gauge x #1,200 ea 05/25/23 Unknown History (Pentips) melatonin 5 mg tablet 5 - 10 mg PO BEDTIME PRN Sleep 09/21/23 01/13/24 09/20/23 History sevelamer carbonate 800 mg tablet 800 mg PO TIDWM 10/08/23 01/13/24 Unknown History albuterol sulfate 90 mcg/actuation 2 inh inhalation Q6H PRN shortness 01/02/24 01/13/24 Unknown History breath activated powder inhaler of breath or wheezing cholecalciferol (vitamin D3) 1,250 1,250 mcg PO QWEEK 01/02/24 01/13/24 Unknown History mcg (50,000 unit) capsule pantoprazole 40 mg tablet,delayed 40 mg PO DAILY@0630 01/02/24 01/13/24 Unknown History release Physical Exam Vital Signs and Narrative: Vital Signs: Last Vital Signs Temp 98.4 F 02/07/24 18:45 Pulse 76 02/07/24 19:21 Resp 20 02/07/24 19:21 BP 175/52 H 02/07/24 18:45 Pulse Ox 97 02/07/24 18:45 O2 Del Method Room Air 02/07/24 18:45 Oxygen Flow Rate 2 02/07/24 18:45 BMI result Body Mass Index 29.5 Elderly female lying in bed in mild distress on supplemental oxygen Neck supple Right-sided crackles present Regular rate and rhythm Abdomen soft nontender, no guarding, no rigidity, no CVA tenderness Patient is awake, alert and oriented to self, place, time and person ; no focal motor weakness Psych: Normal mood Left BKA Results Labs 02/07/24 19:51 02/07/24 19:51 Labs: Laboratory Results - last 24 hr 02/07/24 02/07/24 19:51 20:18 MCV 88.4 MCH 28.4 MCHC 32.1 RDW 14.6 Plt Count 198 MPV 10.3 Immature Gran % (Auto) 0.5 H Neut % (Auto) 82.3 H Lymph % (Auto) 9.6 L Bartholomew % (Auto) 7.0 Eos % (Auto) 0.3 Baso % (Auto) 0.3 Lymph # (Auto) 1.1 L Bartholomew # (Auto) 0.8 Eos # (Auto) 0.0 Baso # (Auto) 0.0 Abs Immat Gran (auto) 0.06 H Absolute Neuts (auto) 9.8 H Absolute Nucleated RBC 0.030 H Nucleated RBC % (auto) 0.3 H VBG pH 7.48 H VBG pCO2 47 VBG pO2 58 VBG HCO3 35 H VBG O2 Saturation 88.0 VBG Base Excess 10.7 Anion Gap 16 Estim Creat Clear Calc 20.7 Estimated GFR 25 Random Glucose 365 H* Lactic Acid 1.8 Calcium 8.3 L Magnesium 1.8 Total Bilirubin 0.3 AST 8 ALT 7 Alkaline Phosphatase 188 H Troponin I High Sens 24.7 H B-Natriuretic Peptide 4725 H Total Protein 6.6 Albumin 3.1 L Beta-Hydroxybutyrate 0.06 Influenza Type A (PCR) NEGATIVE Influenza Type B (PCR) NEGATIVE RSV RNA Qual (PCR) NEGATIVE SARS-CoV-2 RNA (RT-PCR) NEGATIVE Imaging Radiologist's Impressions: Impressions Chest X-Ray 02/07/24 19:40 IMPRESSION: 1. Indeterminate focal airspace opacities in the right perihilar/infrahilar region which could be related with atelectasis, aspiration or pneumonia. Recommend short-term follow-up. 2. Increased bronchovascular markings suspicious for pulmonary edema in the context of cardiomegaly. Assessment and Plan (1) Hypoxia: Status: Acute (2) Pneumonia: Status: Acute Plan This is a 68-year-old female with pertinent history of ESRD on hemodialysis (Monday, Monday, Monday), congestive heart failure with reduced ejection fraction, insulin-dependent type 2 diabetes mellitus, mixed hyperlipidemia, essential hypertension, history of CVA, mood disorder who presents to the emergency department for evaluation of dyspnea. #. Acute hypoxic resp failure due to right sided pna: Will admit patient with supplemental o2. Initiating empiric IV abx. Obtaining sputum culture. Npo until pt passes bedside swallow screene #. Congestive heart failure with reduced EF with exacerbation: Consulting nephrology for HD. On B kain and ARB. #.? Insulin-dependent type 2 diabetes mellitus with hyperglycemia: Initiating basal bolus insulin regimen #.? Essential hypertension: Continue home antihypertensives #.? History of CVA: on plavix, aspirin and high-intensity statin #. Mood disorder. Continue mood stabilizers Med rec pending DVT prophylaxis: Heparin Full code NPO until patient passes swallow screen Admit as inpatient and will require two night minimum hospital stay for supplemental oxygen, IV antibiotics (as above), which is not possible in a lesser acute setting. Specialist consult pending Quality Stroke Does the patient have a stroke diagnosis?: No VTE Prior VTE?: No VTE Risk Level:: Medical - moderate - high VTE Device Contraindication: Treatment Not Indicated VTE Drug Contraindication: N/A - Med Ordered
[2024-02-07] MEDS: cefTRIAXone sodium 1 GM in 0.9 % Sodium Chloride 50 ML IV (22:35)
[2024-02-07] MEDS: Insulin Lispro 100 UNIT/ML 3 ML VIAL SUBCUT (22:35)
[2024-02-07] MEDS: Heparin Sodium,Porcine 5,000 UNIT/ML VIAL 5000 UNIT SUBCUT (22:36)
[2024-02-07 22:44] VITALS: BP 157/45; PULSE 73; RESP 17; TEMP 37.3; O2SAT 94
[2024-02-07] MEDS: Doxycycline Hyclate 100 MG in 0.9 % Sodium Chloride 250 ML 166.67 MG IV (23:49)
[2024-02-07] MEDS: Insulin Glargine,Hum.rec.anlog 100 UNIT/ML 10 ML VIAL 10 UNIT SUBCUT (23:49)
[2024-02-08] VITALS (8 sets, daily range): BP systolic 146–170; BP diastolic 43–61; PULSE 66–84; RESP 14–22; TEMP 36–36.9; O2SAT 88–100
[2024-02-08] MEDS: 0.9 % Sodium Chloride Flush 3 ML SYRINGE IVFLUSH ×3 (00:01→17:09)
[2024-02-08 05:45] LABS: Basophils Percent Auto 0.2 % (0-2); Hematocrit 32.9 % (37.0-47.0); Hemoglobin 10.4 g/dl (12.0-16.0); Imm Gran Pct Auto 0.8 % (0.0-0.4); Lymphocytes Absolute Auto 0.8 X10*3/uL (1.2-4.9); Lymphocytes Percent Auto 5.8 % (20-40); MANUAL DIFF FLAG SCAN; Mean Corpuscular HGB Conc 31.6 g/dl (31.0-35.0); Mean Corpuscular Hemoglobin 27.9 pg (27.0-33.0); Mean Corpuscular Volume 88.2 fL (80.0-98.0); Mean Platelet Volume 10.9 fL (9.4-12.3); Monocytes Absolute Auto 0.1 X10*3/uL (0.1-1.2); Monocytes Percent Auto 1.1 % (2-11); Neutrophils Absolute Auto 12.2 x10*3/uL (2.0-8.3); Neutrophils Percent Auto 92.1 % (45-73); Platelet Count 228 X10*3/uL (160-400); Red Blood Count 3.73 X10*6/uL (4.20-5.50); Red Cell Distribution Width 14.4 % (11.0-16.0); SCAN SMEAR FLAG 1; White Blood Count 13.2 X10*3/uL (4.8-10.8)
--- NOTE | 2024-02-08 05:48 | PC.NURSE ---
Pt requesting bedside commode, Pt stand by assist.
[2024-02-08] MEDS: Benzonatate 100 MG CAPSULE 200 MG PO (05:59)
[2024-02-08 06:07] LABS: SLIDE REVIEW VERIFIED
[2024-02-08 06:08] LABS: Anion Gap 18 (12-20); Blood Urea Nitrogen 18 mg/dL (9-16); Calcium 8.6 mg/dL (8.4-10.2); Carbon Dioxide 26 mmol/L (22-29); Chloride 95 mmol/L (96-108); Creatinine Clr Calc Pharmacy 17.9; Estimated Glomerular Filt Rate 21; Glucose Random 320 mg/dL (60-115); Sodium 135 mmol/L (135-145)
--- NOTE | 2024-02-08 07:09 | PHA.MEDREC ---
Pharmacy Consult ? Medication Reconciliation Pharmacy has completed the medication reconciliation. Patient was just here on 02/01, utilized discharge packet.
[2024-02-08 07:57] LABS: Glucose, Whole Blood 269 mg/dL (60-115)
[2024-02-08 08:29] LABS: VBG Base Excess 10.7 mmol/L; VBG HCO3 35 mmol/L (22-26); VBG pCO2 47 mmHg; VBG pH 7.48 (7.32-7.43); VBG pO2 58 mmHg
--- NOTE | 2024-02-08 10:30 | PC.NURSE ---
no lispro in pyxis, pharmacy was called by previous nurse for refill. awaiting delivery
[2024-02-08] MEDS: Valsartan 80 MG TABLET PO ×2 (10:35→22:42)
[2024-02-08] MEDS: carvediloL 12.5 MG TABLET PO ×2 (10:35→16:59)
[2024-02-08] MEDS: Heparin Sodium,Porcine 5,000 UNIT/ML VIAL 5000 UNIT SUBCUT ×2 (10:47→23:26)
[2024-02-08] MEDS: traMADoL HCL 50 MG TABLET 25 MG PO (12:05)
[2024-02-08] MEDS: Famotidine/PF 20 MG/2 ML VIAL IVPUSH (12:05)
--- NOTE | 2024-02-08 12:46 | HO.PM.IMPN ---
Subjective Subjective Date of Service: 02/08/24 Interval History: Seen and examined this morning Follow-up for pneumonia History obtained with the assistance of a adz worker Patient reporting abdominal pain began after eating, reported in the center of her stomach with associated nausea. no vomiting she says breathing has improved since admission Review of Systems Review of Systems: Yes all other systems are reviewed and are negative Constitutional Constitutional: Denies chills and Denies fever(s) Cardiovascular Cardiovascular: Denies chest pain and Denies dyspnea Respiratory Respiratory: Denies dyspnea Physical Exam Vital Signs: Vital Signs: Last Vital Signs Temp 98.4 F 02/08/24 07:50 Pulse 80 02/08/24 11:20 Resp 18 02/08/24 11:20 BP 165/61 H 02/08/24 10:35 Pulse Ox 88 L 02/08/24 11:20 O2 Del Method Room Air 02/08/24 11:20 O2 Flow Rate 3 02/08/24 04:11 Oxygen Flow Rate 2 02/07/24 18:45 BMI result Body Mass Index 29.5 Const: General: alert and awake Nutritional Appearance: average body habitus Orientation/consciousness: oriented to person and oriented to place Resp: Other: no wheeze Effort & Inspection: normal respiratory effort, able to speak in complete sentences, no respiratory distress and no use of accessory muscles Cardio: Rate: regular rate GI: Other: no guarding no rebound; reports tenderness mid abdomen Inspection: No distended Palpation (GI): Soft to palpation Neuro: General: oriented to person, oriented to place and moves all extremities Extrem: Other: left BKA, left hand partial well healing finger ampuations Objective Data Active Medications Acetaminophen (Acetaminophen 325 Mg Tablet) 650 mg PO Q6H PRN PRN Reason: Pain, Mild (Pain Scale 1-3) Aspirin (Aspirin Enteric Coated 81 Mg Tablet.) 81 mg PO BEDTIME MATTY Atorvastatin Calcium (Atorvastatin Calcium 80 Mg Tablet) 80 mg PO BEDTIME [facility] Benzonatate (Benzonatate 100 Mg Capsule) 200 mg PO TID PRN PRN Reason: Cough Last Admin: 02/08/24 05:59 Dose: 200 mg Documented By: INDERJIT Carvedilol (Carvedilol 12.5 Mg Tablet) 12.5 mg PO BIDWM [facility]; Protocol Last Admin: 02/08/24 10:35 Dose: 12.5 mg Documented By: [place] Clopidogrel Bisulfate (Clopidogrel Bisulfate 75 Mg Tablet) 75 mg PO DAILY [facility] Glucose (Glucose Gel 15 Gm Gel..Gram.) 15 gm PO Q15M PRN; Protocol PRN Reason: per Hypoglycemia Standing Ord. Heparin Sodium (Porcine) (Heparin Sodium,Porcine 5,000 Unit/Ml Vial) 5,000 unit SUBCUT Q12H [facility] Last Admin: 02/08/24 10:47 Dose: 5,000 unit Documented By: [place] Hydrocortisone (Hydrocortisone 1 % Cream 28.35 Gm Tube) 1 appl TOPICAL TID PRN; Protocol PRN Reason: itching Ceftriaxone Sodium 1 gm/ (Sodium Chloride) 50 mls @ 100 mls/hr IV Q24H MATTY Doxycycline Hyclate 100 mg/ (Sodium Chloride) 250 mls @ 166.67 mls/hr IV Q12H [facility] Dextrose (D10) 250 mls @ 750 mls/hr IV Q15M PRN; Protocol PRN Reason: per Hypoglycemia Standing Ord. Insulin Glargine (Insulin Glargine,Hum.Rec.Anlog 100 Unit/Ml 10 Ml Vial) 10 unit SUBCUT BEDTIME [facility] Last Admin: 02/07/24 23:49 Dose: 10 unit Documented By: INDERJIT Insulin Human Lispro (Insulin Lispro 100 Unit/Ml 3 Ml Vial) 0 unit SUBCUT QIDACHS [facility]; Protocol Last Admin: 02/08/24 10:37 Dose: Not Given Documented By: [place] Non-Admin Reason: Med Not Available Comments: called pharmacy x2, close to next dose of insulin for lunch Magnesium Oxide (Magnesium Oxide 400 Mg Tablet) 400 mg PO DAILY [facility] Melatonin (Melatonin 3 Mg Tablet) 6 mg PO BEDTIME PRN PRN Reason: Insomnia Melatonin (Melatonin 3 Mg Tablet) 6 mg PO BEDTIME PRN PRN Reason: Sleep Omeprazole (Omeprazole 20 Mg Capsule.Dr) 20 mg PO DAILY@0630 [facility] Ondansetron HCl (Ondansetron Hcl 4 Mg/2 Ml Vial) 4 mg IVPUSH Q8H PRN PRN Reason: Nausea and Vomiting Polyethylene Glycol (Polyethylene Glycol 3350 17 Gm Powd.Pack) 17 gm PO DAILY [facility] Senna (Sennosides 8.6 Mg Tablet) 17.2 mg PO BEDTIME [facility] Sevelamer Carbonate (Sevelamer Carbonate Tablet 800 Mg Tablet) 800 mg PO TIDWM [facility] Sodium Chloride (0.9 % Sodium Chloride Flush 3 Ml Syringe) 3 ml IVFLUSH QSHIFT MATTY Last Admin: 02/08/24 10:36 Dose: 3 ml Documented By: [place] Valsartan (Valsartan 80 Mg Tablet) 80 mg PO BID [facility]; Protocol Last Admin: 02/08/24 10:35 Dose: 80 mg Documented By: [place] Labs 02/08/24 04:53 02/08/24 04:53 Labs: Laboratory Results - last 24 hr 02/07/24 02/07/24 02/07/24 19:51 19:53 20:18 MCV 88.4 MCH 28.4 MCHC 32.1 RDW 14.6 Plt Count 198 MPV 10.3 Immature Gran % (Auto) 0.5 H Neut % (Auto) 82.3 H Lymph % (Auto) 9.6 L [place] % (Auto) 7.0 Eos % (Auto) 0.3 Baso % (Auto) 0.3 Lymph # (Auto) 1.1 L [place] # (Auto) 0.8 Eos # (Auto) 0.0 Baso # (Auto) 0.0 Abs Immat Gran (auto) 0.06 H Absolute Neuts (auto) 9.8 H Absolute Nucleated RBC 0.030 H Nucleated RBC % (auto) 0.3 H Smear Tech's Comments VBG pH 7.48 H 7.48 H VBG pCO2 47 47 VBG pO2 58 58 VBG HCO3 35 H 35 H VBG O2 Saturation 88.0 88.0 VBG Base Excess 10.7 10.7 Anion Gap 16 Estim Creat Clear Calc 20.7 Estimated GFR 25 POC Glucose Random Glucose 365 H* Lactic Acid 1.8 Calcium 8.3 L Magnesium 1.8 Total Bilirubin 0.3 AST 8 ALT 7 Alkaline Phosphatase 188 H Troponin I High Sens 24.7 H B-Natriuretic Peptide 4725 H Total Protein 6.6 Albumin 3.1 L Beta-Hydroxybutyrate 0.06 Influenza Type A (PCR) NEGATIVE Influenza Type B (PCR) NEGATIVE RSV RNA Qual (PCR) NEGATIVE SARS-CoV-2 RNA (RT-PCR) NEGATIVE 02/08/24 02/08/24 04:53 07:53 MCV 88.2 MCH 27.9 MCHC 31.6 RDW 14.4 Plt Count 228 MPV 10.9 Immature Gran % (Auto) 0.8 H Neut % (Auto) 92.1 H Lymph % (Auto) 5.8 L [place] % (Auto) 1.1 L Eos % (Auto) 0.0 Baso % (Auto) 0.2 Lymph # (Auto) 0.8 L [place] # (Auto) 0.1 Eos # (Auto) 0.0 Baso # (Auto) 0.0 Abs Immat Gran (auto) 0.10 H Absolute Neuts (auto) 12.2 H Absolute Nucleated RBC 0.000 Nucleated RBC % (auto) 0.0 Smear Tech's Comments VERIFIED VBG pH VBG pCO2 VBG pO2 VBG HCO3 VBG O2 Saturation VBG Base Excess Anion Gap 18 Estim Creat Clear Calc 17.9 Estimated GFR 21 POC Glucose 269 H Random Glucose 320 H Lactic Acid Calcium 8.6 Magnesium Total Bilirubin AST ALT Alkaline Phosphatase Troponin I High Sens B-Natriuretic Peptide Total Protein Albumin Beta-Hydroxybutyrate Influenza Type A (PCR) Influenza Type B (PCR) RSV RNA Qual (PCR) SARS-CoV-2 RNA (RT-PCR) Assessment and Plan (1) Pneumonia: Status: Acute Plan This is a 68-year-old female with pertinent history of ESRD on hemodialysis (Monday, Monday, Monday), congestive heart failure with reduced ejection fraction, insulin-dependent type 2 diabetes mellitus, mixed hyperlipidemia, essential hypertension, history of CVA, mood disorder who presents to the emergency department for evaluation of dyspnea. Acute hypoxic resp failure due to right sided pna: white count trending up due to dose of solu medrol given in ED. No sepsis continue IV ceftriaxone, doxycycline sputum culture pending Passed bedside swallow screen, formal swallow evaluation pending wean oxygen as tolerated Blood cultures pending Congestive heart failure with reduced EF with exacerbation: breathing improved nephrology consult pending ESRD on HD nephrology consult pending Insulin-dependent type 2 diabetes mellitus with hyperglycemia: started on low dose Lantus Follow POCs, ada diet Essential hypertension: Continue home antihypertensives, valsartan, coreg History of CVA: on aspirin, plavix and high-intensity statin Mood disorder. Continue mood stabilizers DVT prophylaxis: Heparin Full code ongoing hospital stay for supplemental oxygen, IV antibiotics (as above), which is not possible in a lesser acute setting. Specialist consult pending Quality Stroke Does the patient have a stroke diagnosis?: No VTE Prior VTE?: No VTE Risk Level:: Medical - moderate - high VTE Device Contraindication: Treatment Not Indicated VTE Drug Contraindication: N/A - Med Ordered
[2024-02-08 13:14] LABS: Glucose, Whole Blood 466 mg/dL (60-115)
[2024-02-08] MEDS: Insulin Lispro 100 UNIT/ML 3 ML VIAL SUBCUT ×5 (13:40→22:42)
[2024-02-08] MEDS: polyethylene glycoL 3350 17 GM POWD.PACK PO (13:40)
--- NOTE | 2024-02-08 13:45 | PC.NURSE ---
per JOSE Sánchez, give 15u total of insulin for POC 466. Insulin given (10u sliding scale and 5u ordered stat).
[2024-02-08] MEDS: Sevelamer Carbonate Tablet 800 MG TABLET PO ×2 (14:13→17:06)
--- NOTE | 2024-02-08 16:30 | PC.NURSE ---
Assumed care of patient at this time, patient denies pain, family at bedside.
--- NOTE | 2024-02-08 16:45 | PC.NURSE ---
POC 421, per Keysha GARCIA, give extra 5u, total of 15u
[2024-02-08 16:57] LABS: Glucose, Whole Blood 421 mg/dL (60-115)
[2024-02-08 20:27] LABS: Glucose, Whole Blood 181 mg/dL (60-115)
[2024-02-08] MEDS: Insulin Glargine,Hum.rec.anlog 100 UNIT/ML 10 ML VIAL 10 UNIT SUBCUT (22:41)
[2024-02-08] MEDS: cefTRIAXone sodium 1 GM in 0.9 % Sodium Chloride 50 ML IV (22:41)
[2024-02-08] MEDS: Sennosides 8.6 MG TABLET 17.2 MG PO (22:42)
[2024-02-08] MEDS: Atorvastatin Calcium 80 MG TABLET PO ×2 (22:43)
[2024-02-08] MEDS: Aspirin Enteric Coated 81 MG TABLET.DR PO (22:43)
[2024-02-08] MEDS: Doxycycline Hyclate 100 MG in 0.9 % Sodium Chloride 250 ML 166.67 MG IV (23:27)
--- NOTE | 2024-02-08 23:30 | PC.NURSE ---
Pt assessed, c/o nausea, denies any intervention, medicated per MAR, oob with assistance to the commode
[2024-02-09] VITALS (7 sets, daily range): BP systolic 131–154; BP diastolic 41–67; PULSE 64–72; RESP 16–20; TEMP 36.2–36.7; O2SAT 92–96; BMI 29.5
[2024-02-09] MEDS: 0.9 % Sodium Chloride Flush 3 ML SYRINGE IVFLUSH ×3 (00:13→23:07)
--- NOTE | 2024-02-09 02:29 | PC.NURSE ---
pt reported she is upset and scared of a pt in the unit
[2024-02-09 04:31] LABS: Glucose, Whole Blood 157 mg/dL (60-115)
[2024-02-09] MEDS: Omeprazole 20 MG CAPSULE.DR PO (06:22)
[2024-02-09 08:15] LABS: Glucose, Whole Blood 139 mg/dL (60-115)
--- NOTE | 2024-02-09 10:49 | MHC.CM.PN ---
CM attempted to meet with Patient in HD, with [facility] [employer] Representative but RN said that Patient had just fallen asleep. CM attempted to reach both contacts, Daughter/HCP/Adelita @ [phone] and Parag @ [phone] but neither answered and neither have a VM that is set up. CM will leave the original IMM at bedside for Patient's review and place a copy on the chart. DC plan appears to be home/resume services; CM has initiated and will follow for dc planning. From chart review of admission< a month old, Patient lives with her Daughter/HCP/Adelita and her Grandson and uses an electric w/c to assist with mobility. Patient receives HD @ [facility] PCP is Dr. Avila.
--- NOTE | 2024-02-09 11:01 | PM.DS ---
DS: Providers Provider Date of Service: 02/09/24 Date of admission: 02/07/24 21:59 Date of discharge: 02/09/24 Primary care physician: Alexys Avila MD Consults: 02/07/24 22:20 Consult to Nephrology Routine Consulting Provider: [facility] Reason for consultation: ESRD on HD Attending physician on discharge: Constantino Feliz Discharging clinician: Keysha Sánchez DS: Diagnosis Discharge Diagnosis (1) Pneumonia: Status: Acute DS: Summary Hospital Course Hospital Course: From H&P on the day of admission This is a 68-year-old female with pertinent history of ESRD on hemodialysis (Monday, Monday, Monday), congestive heart failure with reduced ejection fraction, insulin-dependent type 2 diabetes mellitus, mixed hyperlipidemia, essential hypertension, history of CVA, mood disorder who presents to the emergency department for evaluation of dyspnea. History obtained with the help of aerial photograph interpreter. Patient states her symptoms started one day prior to presentation. She started having cough with intermittent purulent sputum. Also has associated dyspnea. Unclear PND and orthopnea. Patient denies chest discomfort, palpitations, abdominal pain, changes in urinary or bowel habits. Patient denies coughing or choking with food. In the ER, patient was found to be satting 84% on RA. Imaging with right sided pna and vascular congestion. Found to have leukocytosis and elevated BNP Addendum 02/09: Pt set to be discharged 02/08 but held overnight due to confusion over transportation. There is no change in clinical presentation and patient will be discharged home as planned today. Summary as below Acute hypoxic resp failure due to right sided pna white count trending up due to dose of solu medrol given in ED. No sepsis. Treated with IV ceftriaxone and doxycycline. Passed bedside swallow screen, tolerating a diet without signs of aspiration Was weaned off of supplemental oxygen. Respiratory symptoms have resolved. Underwent hemodialysis on the day of discharge. Blood cultures have remained negative to date. Patient has remained afebrile. ESRD on HD. Seen by Nephrology, had hemodialysis on the day of discharge, 02/08 Insulin-dependent type 2 diabetes mellitus with hyperglycemia: started on low dose Lantus during hospital stay. Will be stopped as patient had Lantus discontinued on last hospitalization due to history of hypoglycemia Time Attestation Discharge Coordination Time (in mins): 32 Quality: Safe Use of Opioids Does Pt have an Active Cancer Diagnosis on the Problem List?: No Quality: Stroke Does the patient have a stroke diagnosis?: No Physical Exam Vital Signs: Vital Signs: Last Vital Signs Temp 97.4 F 02/09/24 07:45 Pulse 72 02/09/24 07:45 Resp 18 02/09/24 07:45 BP 154/67 H 02/09/24 07:45 Pulse Ox 96 02/09/24 07:45 O2 Del Method Room Air 02/09/24 07:45 O2 Flow Rate 1 02/08/24 15:10 Oxygen Flow Rate 2 02/07/24 18:45 BMI result Body Mass Index 29.5 Const: General: alert and awake Nutritional Appearance: average body habitus Orientation/consciousness: oriented to person and oriented to place Resp: Other: no wheeze Effort & Inspection: normal respiratory effort, able to speak in complete sentences, no respiratory distress and no use of accessory muscles Cardio: Rate: regular rate GI: Other: no guarding no rebound; reports tenderness mid abdomen Inspection: No distended Palpation (GI): Soft to palpation Neuro: General: oriented to person, oriented to place and moves all extremities Extrem: Other: left BKA, left hand partial well healing finger ampuations DS: Data Data Completed and Pending Completed studies during hospitalization [Text1]: Procedures Detachment at Left Index Finger, Mid, Open Approach (09/15/22) Dilation of Esophagus, Via Natural or Artificial Opening Endoscopic (01/31/22) Dilation of Upper Esophagus, Via Natural or Artificial Opening Endoscopic (08/16/21) Fluoroscopy of Superior Vena Cava using Low Osmolar Contrast, Guidance (12/27/22) Insertion of Infusion Device into Superior Vena Cava, Percutaneous Approach (12/27/22) Introduction of Other Thrombolytic into Peripheral Vein, Percutaneous Approach (06/05/21) Performance of Urinary Filtration, Intermittent, Less than 6 Hours Per Day (01/13/24) Transfusion of Nonautologous Red Blood Cells into Peripheral Vein, Percutaneous Approach (12/27/22) Labs on day of discharge: Laboratory Results - last 24 hr 02/08/24 02/08/24 02/08/24 13:10 16:42 20:22 POC Glucose 466 H* 421 H* 181 H 02/09/24 02/09/24 04:28 08:02 POC Glucose 157 H 139 H Preliminary micro results at discharge 02/07/24 20:21 Blood Culture - Preliminary Blood - Venous No growth after 24 hours. 02/07/24 19:51 Blood Culture - Preliminary Blood - Venous No growth after 24 hours. Discharge Plan Discharge Anticipated Discharge Date/Time: 02/09/24 13:47 Patient Disposition: Home Health Service Discharge Diagnosis: respiratory failure due to pneumonia Referrals: [facility] [Outside] - 1 Week Alexys Avila MD [Primary Care Provider] - 1 Week Discharge Medications: New cefuroxime axetil 250 mg tablet 250 mg PO DAILY Qty: 5 0RF Rx Instructions: take after dialysis on dialysis days doxycycline hyclate 100 mg tablet 100 mg PO BID Qty: 10 0RF Continued atorvastatin 80 mg tablet 80 mg PO BEDTIME clopidogrel 75 mg tablet 75 mg PO DAILY aspirin 81 mg tablet,delayed release (DR/EC) 81 mg PO BEDTIME magnesium oxide 400 mg (241.3 mg magnesium) tablet 400 mg PO DAILY sevelamer carbonate 800 mg tablet 800 mg PO TIDWM carvedilol 12.5 mg Tablet 12.5 mg PO BIDWM Qty: 60 1RF Protocol: Hold for SBP/HR < HOLD for SBP < : 90 HOLD for HR < : 60 valsartan 80 mg Tablet 80 mg PO BID Qty: 60 1RF Protocol: Hold for SBP< HOLD for SBP < : 90 lidocaine 5 % ointment 1 appl topical QID PRN (Reason: pain) Qty: 50 0RF Rx Instructions: applied to anal area 15 minutes prior to attempted bowel movement hydrocortisone [Preparation H Hydrocortisone] 1 % cream 1 appl topical TID PRN (Reason: itching) Qty: 28.35 0RF melatonin 5 mg tablet 5 - 10 mg PO BEDTIME PRN (Reason: Sleep) cholecalciferol (vitamin D3) 1,250 mcg (50,000 unit) capsule 1,250 mcg PO QWEEK pantoprazole 40 mg tablet,delayed release (DR/EC) 40 mg PO DAILY@0630 Rx Instructions: take one tablet half an hour before breakfast albuterol sulfate 90 mcg/actuation aerosol powdr breath activated 2 inh inhalation Q6H PRN (Reason: shortness of breath or wheezing) sennosides [Natural Senna Laxative] 8.6 mg tablet 17.2 mg PO BEDTIME Qty: 60 3RF insulin aspart U-100 [Novolog FlexPen U-100 Insulin] 100 unit/mL (3 mL) insulin pen See Protocol subcut NEEDED PRN (Reason: bs >200) Protocol: Insulin Correction Scale Less than or equal to 110 ---- Give (units): 0 111 to 150 Give (units): 0 151 to 200 Give (units): 2 201 to 250 Give (units): 4 251 to 300 Give (units): 6 301 to 350 Give (units): 8 Greater than 350 Give (units): 10 Call MD if Blood Glucose > : 350 Rx Instructions: 8-12 units SLIDING SCALE No Action (DME) lancets [OneTouch Delica Plus Lancet] 33 gauge misc See Rx Instructions .ROUTE TID Qty: 100 Rx Instructions: As directed (DME) pen needle, diabetic [Pentips] 32 gauge x 5/32 needle See Rx Instructions .ROUTE DIRECTED Qty: 1200 Rx Instructions: As directed (DME) OneTouch Ultra Test Strip See Rx Instructions .ROUTE TID Qty: 10 Rx Instructions: As directed Discharge Orders: Discharge Order (Routine); Ordered 02/09/24 Ordered By: Keysha Sánchez Activity on Discharge: As tolerated Stand Alone Forms: Patient Portal Discharge page Print Language: Portuguese Care Plan Goals: see below Health Concerns: respiratory failure due to pneumonia fluid overload ESRD on HD Plan of Treatment: complete course of antibiotics as prescribed continue with regular dialysis schedule Assessment: see discharge summary Discharge Date/Time: 02/10/24 10:19
--- NOTE | 2024-02-09 11:27 | PC.NURSE ---
pt off floor in dialysis since 929. morning meds held until after dialysis
[2024-02-09 11:39] LABS: Glucose, Whole Blood 146 mg/dL (60-115)
[2024-02-09] MEDS: Heparin Sodium,Porcine 5,000 UNIT/ML VIAL 5000 UNIT SUBCUT ×2 (13:32→22:59)
[2024-02-09] MEDS: Clopidogrel Bisulfate 75 MG TABLET PO (13:33)
[2024-02-09] MEDS: Doxycycline Hyclate 100 MG in 0.9 % Sodium Chloride 250 ML 166.67 MG IV ×2 (13:33→23:43)
[2024-02-09] MEDS: Sevelamer Carbonate Tablet 800 MG TABLET PO ×2 (13:33→17:11)
[2024-02-09] MEDS: Magnesium Oxide 400 MG TABLET PO (13:33)
--- NOTE | 2024-02-09 14:02 | MHC.CM.PN ---
Patient has been medically cleared for dc to home today, self care; Per Jennifer at 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 Per PA, Daughter/HCP/Jessica will transport Patient home today at 6PM.
--- NOTE | 2024-02-09 14:21 | P.F2F_ITS ---
Service Date Service Date: 02/09/24 Encounter Date of encounter: 02/09/24 Reasons for Services Signs and symptoms assessed: Need intermediate for close monitoring blood sugar, diabetic teaching pulmonary assessment due to recent diagnosis of pneumonia Reason for intermediate: diabetic teaching MD Overseeing Care: Alexys Avila Homebound: Leaving the home is medically contraindicated at this time without the asist of a device and/or another person due th the listed conditions above and below. Reason homebound: weakness related to hospital stay Certification: Based on the above findings, I certify that this patient is confined to the home and needs intermittent intermediate care, physical therapy and/or speech therapy, or continues to need occupational therapy. The patient is under my care, and I have initiated the establishment of the plan of care. The patient will be followed by a physician who will periodically review the plan of care. Time Spent With Patient Time: Total time managing care of this patient today ____ minutes.
--- NOTE | 2024-02-09 14:21 | MHC.CM.PN ---
Addendum entered by Enedelia Baker 02/10/24 12:27: PTS FAMILY DID NOT COME TO PICK HER UP YESTERDAY PLANNED. THEY CAME THIS MORNING [facility] AWARE Original Note: CORRECTION! Patient will dc home today with RN services through [facility].
[2024-02-09 15:36] LABS: Glucose, Whole Blood 212 mg/dL (60-115)
--- NOTE | 2024-02-09 16:07 | P.PNNP_ITS ---
Subjective Subjective Date of Service: 02/09/24 Interval history: Seen and examinedf on HD Overall doing better Physical Exam 2 Vital Signs: Vital Signs: Last Vital Signs Temp 97.4 F 02/09/24 15:35 Pulse 64 02/09/24 15:35 Resp 18 02/09/24 15:35 BP 150/63 H 02/09/24 15:35 Pulse Ox 94 02/09/24 15:35 O2 Del Method Room Air 02/09/24 15:35 O2 Flow Rate 1 02/08/24 15:10 Oxygen Flow Rate 2 02/07/24 18:45 BMI result Body Mass Index 29.5 Const: General: alert and awake Nutritional Appearance: average body habitus Orientation/consciousness: oriented to person and oriented to place Resp: Other: no wheeze Effort & Inspection: normal respiratory effort, able to speak in complete sentences, no respiratory distress and no use of accessory muscles Cardio: Rate: regular rate GI: Other: no guarding no rebound; reports tenderness mid abdomen Inspection: No distended Palpation (GI): Soft to palpation Neuro: General: oriented to person, oriented to place and moves all extremities Extrem: Other: left BKA, left hand partial well healing finger ampuations Objective Data Labs 02/08/24 04:53 02/08/24 04:53 Labs: Laboratory Results - last 24 hr 02/08/24 02/08/24 02/09/24 16:42 20:22 04:28 POC Glucose 421 H* 181 H 157 H 02/09/24 02/09/24 02/09/24 08:02 11:29 15:31 POC Glucose 139 H 146 H 212 H Microbiology Microbiology Results: Microbiology 02/07/24 20:21 Blood - Venous Blood Culture - Preliminary No growth after 24 hours. 02/07/24 19:51 Blood - Venous Blood Culture - Preliminary No growth after 24 hours. Procedures Date of Service Date of Service: 02/09/24 Assessment & Plan Assessment and plan (1) Pneumonia: Status: Acute Plan ESRD: cont HD mwf SOB: > CAP, on ABx Nephrogenic anmeia MBD of CKD REC: cont HD mwf; meds as noted Time Spent With Patient Time: Total time managing care of this patient today ____ minutes. Progress Note: Quality Stroke Does the patient have a stroke diagnosis?: No
[2024-02-09] MEDS: carvediloL 12.5 MG TABLET PO (17:11)
[2024-02-09] MEDS: Insulin Lispro 100 UNIT/ML 3 ML VIAL SUBCUT (17:12)
[2024-02-09 21:03] LABS: Glucose, Whole Blood 150 mg/dL (60-115)
[2024-02-09] MEDS: Valsartan 80 MG TABLET PO (23:00)
[2024-02-09] MEDS: cefTRIAXone sodium 1 GM in 0.9 % Sodium Chloride 50 ML IV (23:00)
[2024-02-09] MEDS: Aspirin Enteric Coated 81 MG TABLET.DR PO (23:05)
[2024-02-09] MEDS: Atorvastatin Calcium 80 MG TABLET PO (23:05)
[2024-02-09] MEDS: Melatonin 3 MG TABLET 6 MG PO (23:06)
[2024-02-09] MEDS: Sennosides 8.6 MG TABLET 17.2 MG PO (23:06)
[2024-02-09] MEDS: Benzonatate 100 MG CAPSULE 200 MG PO (23:52)
[2024-02-10 03:23] VITALS: BP 121/53; PULSE 61; RESP 20; TEMP 36.4; O2SAT 98
[2024-02-10] MEDS: Acetaminophen 325 MG TABLET 650 MG PO (03:28)
[2024-02-10] MEDS: Omeprazole 20 MG CAPSULE.DR PO (06:12)
[2024-02-10 07:42] VITALS: BP 128/69; PULSE 59; RESP 20; TEMP 36.2; O2SAT 97
[2024-02-10 08:25] LABS: Glucose, Whole Blood 248 mg/dL (60-115)
[2024-02-10 09:01] VITALS: BP 128/69; PULSE 60
[2024-02-10] MEDS: Sevelamer Carbonate Tablet 800 MG TABLET PO (09:01)
[2024-02-10] MEDS: Clopidogrel Bisulfate 75 MG TABLET PO (09:01)
[2024-02-10] MEDS: Magnesium Oxide 400 MG TABLET PO (09:01)
[2024-02-10] MEDS: carvediloL 12.5 MG TABLET PO (09:01)
[2024-02-10 09:02] VITALS: BP 128/69
[2024-02-10] MEDS: Insulin Lispro 100 UNIT/ML 3 ML VIAL SUBCUT (09:02)
[2024-02-10] MEDS: Valsartan 80 MG TABLET PO (09:02)
[2024-02-10] MEDS: 0.9 % Sodium Chloride Flush 3 ML SYRINGE IVFLUSH (09:03)
== END 2024-02-10 10:19 | disposition home health service (06) | DRG 193 ==
LOC: HO.ED 19:47 → HO.EDOVER 22:41 → HO.S3 02-08 17:26 → HO.EDOVER 02-08 17:52 → HO.IMC 02-09 03:20
PROVIDERS: Nurse Practitioner Family; Physician Assistant Medical; Admitting Provider Student in an Organized Health Care Education/Training Program; Emergency Provider Emergency Medicine; PCP Internal Medicine; Visit Provider Physician Assistant
DX: J18.9 Pneumonia, unspecified organism (principal); I50.23 Acute on chronic systolic (congestive) heart failure; N18.6 End stage renal disease; J96.01 Acute respiratory failure with hypoxia; I42.8 Other cardiomyopathies; N25.0 Renal osteodystrophy; D63.1 Anemia in chronic kidney disease; E11.65 Type 2 diabetes mellitus with hyperglycemia; Z86.73 Personal history of transient ischemic attack (TIA), and cerebral infarction without residual deficits; E78.2 Mixed hyperlipidemia; F39 Unspecified mood [affective] disorder; E11.22 Type 2 diabetes mellitus with diabetic chronic kidney disease; Z89.512 Acquired absence of left leg below knee; Z20.822 Contact with and (suspected) exposure to COVID-19; Z99.2 Dependence on renal dialysis; Z79.4 Long term (current) use of insulin; Z79.82 Long term (current) use of aspirin; Z79.899 Other long term (current) drug therapy
CPT/HCPCS: 0241U; 36415; 71045; 80048; 80053; 82010; 82803; 82947; 83605; 83735; 83880; 84484; 85025; 87040; 90999; 93005; 94640; 99285; J0696; J1644; J2919

== ENCOUNTER → 2024-02-07 21:59 | Outpatient (BNV) | payer OTHER, SELFPAY | PROVIDERS: Admitting Provider Student in an Organized Health Care Education/Training Program; Emergency Provider Emergency Medicine; PCP Internal Medicine; Visit Provider Student in an Organized Health Care Education/Training Program | DX: J18.9 Pneumonia, unspecified organism (principal); J96.01 Acute respiratory failure with hypoxia | CPT/HCPCS: 99222; 99232; 99239; G0180 ==

== ENCOUNTER 2024-02-12 21:43 | Emergency (ER) | payer OTHER, SELFPAY ==
[2024-02-12 22:20] VITALS: BP 157/85; BP 160/90; PULSE 80; PULSE 84; RESP 20; TEMP 36.1; O2SAT 100; O2SAT 98; BMI 41.8
[2024-02-13 01:27] LABS: Basophils Percent Auto 0.3 % (0-2); Eosinophils Absolute Auto 0.1 X10*3/uL (0.0-0.4); Eosinophils Percent Auto 0.8 % (0-4); Hematocrit 32.4 % (37.0-47.0); Hemoglobin 10.5 g/dl (12.0-16.0); Imm Gran Abs Auto 0.13 X10*3/uL (0.00-0.03); Imm Gran Pct Auto 1.1 % (0.0-0.4); Lymphocytes Absolute Auto 1.3 X10*3/uL (1.2-4.9); Lymphocytes Percent Auto 11.2 % (20-40); MANUAL DIFF FLAG NO; Mean Corpuscular HGB Conc 32.4 g/dl (31.0-35.0); Mean Corpuscular Hemoglobin 27.9 pg (27.0-33.0); Mean Corpuscular Volume 85.9 fL (80.0-98.0); Mean Platelet Volume 9.8 fL (9.4-12.3); Monocytes Absolute Auto 0.8 X10*3/uL (0.1-1.2); Monocytes Percent Auto 6.8 % (2-11); Neutrophils Absolute Auto 9.3 x10*3/uL (2.0-8.3); Neutrophils Percent Auto 79.8 % (45-73); Platelet Count 160 X10*3/uL (160-400); Red Blood Count 3.77 X10*6/uL (4.20-5.50); White Blood Count 11.7 X10*3/uL (4.8-10.8)
--- NOTE | 2024-02-13 01:28 | PC.NURSE ---
this rn assumed care of pt, pt a&ox4, respirations even and unlabored. pt placed in stretcher by this rn and carter FIELDS, pt reports rib pain at this time. labs obtained and sent to lab.
[2024-02-13 01:34] LABS: INTERNATIONAL NORM RATIO 1.2 (0.9-1.1); Prothrombin Time 14.1 SEC (11.1-13.3)
[2024-02-13 01:48] LABS: Anion Gap 19 (12-20); Blood Urea Nitrogen 24 mg/dL (9-16); Calcium 8.1 mg/dL (8.4-10.2); Carbon Dioxide 23 mmol/L (22-29); Chloride 98 mmol/L (96-108); Creatinine Clr Calc Pharmacy 21.5; Estimated Glomerular Filt Rate 21; Glucose Random 492 mg/dL (60-115); Potassium 3.9 mmol/L (3.3-5.1); Sodium 136 mmol/L (135-145)
[2024-02-13] MEDS: Insulin Lispro 100 UNIT/ML 3 ML VIAL 10 UNIT SUBCUT (02:17)
--- NOTE | 2024-02-13 02:25 | PC.NURSE ---
pt reports wanting to have assistance changing brief, pt repositioned and assisted with cleaning.
--- NOTE | 2024-02-13 02:50 | ED.GENADULT ---
HPI - General Adult General Chief complaint: General Medical Stated complaint: on dialysis, painful fistula, hx gangrene Time Seen by Provider: 02/13/24 02:07 Source: patient, old records reviewed and cover inspector Mode of arrival: ambulatory Limitations: no limitations History of Present Illness HPI narrative: 68 yo female with PMH of ESRD on HD MWF, CHF, IDDM, HLD, HTN, mood disorder, chronic wounds on R middle finger that his not healing and R 2nd toe that she was told she has gangrene by her doctor and Dr. Ruelas she has no VNA and states her grandson puts dressings on. She feels like she doesn't know what is going on and wants someone to help her with her wounds. There is no change but she wants a doctor to look at her wounds. MD complaint: chronic wounds Onset (ago): month(s) (1+) Location: right, upper extremity and lower extremity Radiation: non-radiation Severity: mild Pain Consistency: intermittent Relieving factors: none Exacerbating factors: other Associated symptoms: denies other symptoms Treatments prior to arrival: other (bandages) Related Data Home Medications ?Medication ?Instructions ?Recorded ?Confirmed aspirin 81 mg tablet,delayed 81 mg PO BEDTIME 06/20/21 02/08/24 release atorvastatin 80 mg tablet 80 mg PO BEDTIME 06/20/21 02/08/24 clopidogrel 75 mg tablet 75 mg PO DAILY 06/20/21 02/08/24 magnesium oxide 400 mg (241.3 mg 400 mg PO DAILY 04/20/23 02/08/24 magnesium) tablet blood sugar diagnostic (Fourier EducationTouch #10 ea 05/25/23 Ultra Test strips) insulin aspart U-100 100 unit/mL See Protocol subcut NEEDED PRN 05/25/23 02/08/24 (3 mL) subcutaneous pen (Novolog bs >200 FlexPen U-100 Insulin aspart) lancets 33 gauge (OneTouch Delica #100 ea 05/25/23 Plus Lancet) pen needle, diabetic 32 gauge x #1,200 ea 05/25/23 (Pentips) melatonin 5 mg tablet 5 - 10 mg PO BEDTIME PRN Sleep 09/21/23 02/08/24 sevelamer carbonate 800 mg tablet 800 mg PO TIDWM 10/08/23 02/08/24 albuterol sulfate 90 mcg/actuation 2 inh inhalation Q6H PRN shortness 01/02/24 02/08/24 breath activated powder inhaler of breath or wheezing cholecalciferol (vitamin D3) 1,250 1,250 mcg PO QWEEK 01/02/24 02/08/24 mcg (50,000 unit) capsule pantoprazole 40 mg tablet,delayed 40 mg PO DAILY@0630 01/02/24 02/08/24 release Previous Rx's ?Medication ?Instructions ?Recorded carvedilol 12.5 mg tablet 12.5 mg PO BIDWM #60 tabs 10/11/23 valsartan 80 mg tablet 80 mg PO BID #60 tabs 10/11/23 sennosides 8.6 mg tablet (Natural 17.2 mg (2 x 8.6 mg) PO BEDTIME 11/22/23 Senna Laxative) constipation #60 tabs hydrocortisone 1 % topical cream 1 appl topical TID PRN itching 12/15/23 (Preparation H Hydrocortisone) #28.35 grams lidocaine 5 % topical ointment 1 appl topical QID PRN pain #50 12/15/23 grams cefuroxime axetil 250 mg tablet 250 mg PO DAILY #5 tabs 02/09/24 doxycycline hyclate 100 mg tablet 100 mg PO BID #10 tabs 02/09/24 doxycycline hyclate 100 mg tablet 100 mg PO BID #14 tabs 02/13/24 mupirocin 2 % topical ointment 1 appl topical BID 7 days #15 grams 02/13/24 Allergies Allergy/AdvReac Type Severity Reaction Status Date / Time lobster AdvReac Hives Verified 02/12/24 22:23 Review of Systems Review of Systems: Constitutional : No Fever, No Chills ENT/Mouth : No sore throat, No Rhinorrhea Eyes: No Eye Pain, No Swelling, No Redness Cardiovascular : No Chest Pain, No SOB Respiratory : No Cough, No Sputum Gastrointestinal : No Nausea, No Vomiting, No Diarrhea, No abdominal Pain Genitourinary : No Dysuria, No Hematuria Musculoskeletal : No joint pain, No Myalgias, No Joint Swelling Skin : pos Skin Lesions, no skin rash Neuro : No Weakness, No Numbness, No Headache Psych : No Anxiety, No Depression Heme/Lymph: No Bruising, No Bleeding,No Lymphadenopathy Endocrine : No Polyuria, No Polydipsia All other systems reviewed and are negative [facility] Past Medical History Attestation statement: The following information was validated with the patient. Source: old records reviewed Medical History Bilateral visual loss Open wnd toe-complicated Wound, open, hand with or without fingers with complication End stage renal disease on dialysis Congestive heart failure Hyperglycemia due to diabetes mellitus Anemia End stage renal disease Heart failure with reduced ejection fraction Dialysis patient, noncompliant Chronic kidney disease Thrombocytopenia CKD (chronic kidney disease) stage 4, GFR 15-29 ml/min Constipation Ischemic necrosis of finger Normocytic anemia Urinary tract infection due to ESBL Klebsiella Chronic heart failure with preserved ejection fraction (HFpEF) Hypomagnesemia Acute on chronic renal failure Essential hypertension HLD (hyperlipidemia) Non-ST elevated myocardial infarction Diabetes mellitus Nonischemic cardiomyopathy Irritable bowel syndrome with diarrhea Gastroparesis GERD (gastroesophageal reflux disease) Surgical History Status post amputation of finger H/O surgical amputation of finger History of laparoscopic cholecystectomy History of intestinal surgery Hx of eye surgery History of esophagogastroduodenoscopy (EGD) Hx of colonoscopy H/O: hysterectomy Family History Family History Father Lung cancer Mother Diabetes HTN (hypertension) Heart disease Sister Diabetes Heart disease Brother Heart disease Son Diabetes Daughter Diabetes Social History Social History Household Members: Children Household Members Other:: daughter and grandson Housing: House Do you presently have visiting nurse or other home services: No (considering her grandson to be NUTRITION SERVICES MANAGER) Unable to assess alcohol history related to: Unable to respond and Unknown Alcohol intake: never Comment: camera in place Patient Tobacco Use Status: Never used Tobacco e-Cigarette/Vaping Use: Never Used Second Hand Smoke Exposure: No Advance Directives: Yes Advance Directives on File: Yes Advance Directives Date on File: 01/04/23 Do you have a plan to hurt others: No Plan service: No Current occupational status: disabled Physical Exam ED Vital Signs: Vital Signs - 24 hr 02/12/24 22:20 Temperature 97 F Pulse Rate 80 Respiratory Rate 20 Blood Pressure 157/85 H Pulse Oximetry 100 Oxygen Delivery Method Room Air BMI result Body Mass Index 41.8 Appearance: Alert. Oriented X3. No acute distress. Eyes: Pupils equal, round and reactive to light. ENT: Pharynx normal. Neck: Normal inspection. Neck supple. CVS: Normal heart rate and rhythm. Pulses normal. Respiratory: No respiratory distress. Breath sounds normal. Abdomen: Soft and nontender. Skin: Skin warm and dry. Normal skin color. Normal skin turgor. Extremities: R middle finger at the tip there is no erythema there is nice granulation tissue there is some clear non purulent drainage, no abscess felt, normal warm feeling not hot to touch, R 2nd toe calloused dark lesion on pad and then on dorsum of toe yellowish chronic looking ulcer surrounding toe is normal appearing no erythema no warmth the toe itself is warm and well perfused Neuro: Oriented X 3. No motor deficit. No sensory deficit. Medications Administered Discontinued Medications Generic Name Dose Route Start Last Admin Trade Name Freq PRN Reason Stop Dose Admin Insulin Human Lispro 10 unit 02/13/24 01:50 02/13/24 02:17 Insulin Lispro 100 Unit/Ml 3 Ml Vial SUBCUT 02/13/24 01:51 10 unit ONCE ONE Administration Medical Decision Making Medical Decision Making [facility] Narrative: 68 yo female with PMH of ESRD on HD MWF, CHF, IDDM, HLD, HTN, mood disorder, chronic wounds on R middle finger that his not healing and R 2nd toe here with c/o needing help with wounds - she has no systemic sypmtoms she just wants a doctor to look at them. There is no signs of abscess no signs of worsening disease at this time will obtain labs and apply appropriate dressings refer to VNA as well as Jessenia and hand surgery. She seems happy and to understand the situation. Differential Diagnosis Differential Diagnoses: The differential diagnosis associated with the presentation includes gangrene, chronic wounds Admission/Observation Consideration of admission/observation: Escalation of care including admission/observation considered chronic wounds no fevers, no increase in wbc count can be managed as outpatient - asked CM to follow up Lab Data [facility] Lab Attestation statement: I reviewed the patient's lab results. 02/13/24 01:23 02/13/24 01:23 Labs: Lab Results 02/13/24 Range/Units 01:23 WBC 11.7 H (4.8-10.8) X10*3/uL RBC 3.77 L (4.20-5.50) X10*6/uL Hgb 10.5 L (12.0-16.0) g/dl Hct 32.4 L (37.0-47.0) % MCV 85.9 (80.0-98.0) fL MCH 27.9 (27.0-33.0) pg MCHC 32.4 (31.0-35.0) g/dl RDW 15.0 (11.0-16.0) % Plt Count 160 D (160-400) X10*3/uL MPV 9.8 (9.4-12.3) fL Immature Gran % (Auto) 1.1 H (0.0-0.4) % Neut % (Auto) 79.8 H (45-73) % Lymph % (Auto) 11.2 L (20-40) % [place] % (Auto) 6.8 (2-11) % Eos % (Auto) 0.8 (0-4) % Baso % (Auto) 0.3 (0-2) % Lymph # (Auto) 1.3 (1.2-4.9) X10*3/uL [place] # (Auto) 0.8 (0.1-1.2) X10*3/uL Eos # (Auto) 0.1 (0.0-0.4) X10*3/uL Baso # (Auto) 0.0 (0.0-0.2) X10*3/uL Abs Immat Gran (auto) 0.13 H (0.00-0.03) X10*3/uL Absolute Neuts (auto) 9.3 H (2.0-8.3) x10*3/uL Absolute Nucleated RBC 0.000 (0.0-0.012) X10*3/uL Nucleated RBC % (auto) 0.0 (0.0-0.2) /100WBC PT 14.1 H (11.1-13.3) SEC INR 1.2 H (0.9-1.1) Sodium 136 (135-145) mmol/L Potassium 3.9 (3.3-5.1) mmol/L Chloride 98 (96-108) mmol/L Carbon Dioxide 23 (22-29) mmol/L Anion Gap 19 (12-20) BUN 24 H (9-16) mg/dL Creatinine 2.33 H (0.5-1.4) mg/dL Estim Creat Clear Calc 21.5 Estimated GFR 21 Random Glucose 492 H* (60-115) mg/dL Calcium 8.1 L (8.4-10.2) mg/dL External Record Review External record reviewed: Inpatient record Prescription Management I considered prescription management with: Antibiotic and Other Discharge Plan Discharge Clinical Impression: Gangrene Patient Disposition: Home, Self-Care Instructions: Gangrene (DC) Additional Instructions: this is a chronic issue but concerns about the dressing - sent message to ask for VNA and appointments to wound care center. please also follow up with Dr. Ruelas given your toe and Dr. Mckeon in regards to your finger please call tomorrow. return for worsening swelling, color changes, fevers or any other concerns. Prescriptions: New mupirocin 2 % ointment 1 appl topical BID 7 Days Qty: 15 0RF doxycycline hyclate 100 mg tablet 100 mg PO BID Qty: 14 0RF No Action atorvastatin 80 mg tablet 80 mg PO BEDTIME clopidogrel 75 mg tablet 75 mg PO DAILY aspirin 81 mg tablet,delayed release (DR/EC) 81 mg PO BEDTIME magnesium oxide 400 mg (241.3 mg magnesium) tablet 400 mg PO DAILY sevelamer carbonate 800 mg tablet 800 mg PO TIDWM carvedilol 12.5 mg Tablet 12.5 mg PO BIDWM Qty: 60 1RF Protocol: Hold for SBP/HR < HOLD for SBP < : 90 HOLD for HR < : 60 valsartan 80 mg Tablet 80 mg PO BID Qty: 60 1RF Protocol: Hold for SBP< HOLD for SBP < : 90 lidocaine 5 % ointment 1 appl topical QID PRN (Reason: pain) Qty: 50 0RF Rx Instructions: applied to anal area 15 minutes prior to attempted bowel movement hydrocortisone [Preparation H Hydrocortisone] 1 % cream 1 appl topical TID PRN (Reason: itching) Qty: 28.35 0RF cefuroxime axetil 250 mg tablet 250 mg PO DAILY Qty: 5 0RF Rx Instructions: take after dialysis on dialysis days doxycycline hyclate 100 mg tablet 100 mg PO BID Qty: 10 0RF melatonin 5 mg tablet 5 - 10 mg PO BEDTIME PRN (Reason: Sleep) cholecalciferol (vitamin D3) 1,250 mcg (50,000 unit) capsule 1,250 mcg PO QWEEK pantoprazole 40 mg tablet,delayed release (DR/EC) 40 mg PO DAILY@0630 Rx Instructions: take one tablet half an hour before breakfast albuterol sulfate 90 mcg/actuation aerosol powdr breath activated 2 inh inhalation Q6H PRN (Reason: shortness of breath or wheezing) sennosides [Natural Senna Laxative] 8.6 mg tablet 17.2 mg PO BEDTIME Qty: 60 3RF (DME) lancets [OneTouch Delica Plus Lancet] 33 gauge misc See Rx Instructions .ROUTE TID Qty: 100 Rx Instructions: As directed (DME) pen needle, diabetic [Pentips] 32 gauge x 5/32 needle See Rx Instructions .ROUTE DIRECTED Qty: 1200 Rx Instructions: As directed (DME) OneTouch Ultra Test Strip See Rx Instructions .ROUTE TID Qty: 10 Rx Instructions: As directed insulin aspart U-100 [Novolog FlexPen U-100 Insulin] 100 unit/mL (3 mL) insulin pen See Protocol subcut NEEDED PRN (Reason: bs >200) Protocol: Insulin Correction Scale Less than or equal to 110 ---- Give (units): 0 111 to 150 Give (units): 0 151 to 200 Give (units): 2 201 to 250 Give (units): 4 251 to 300 Give (units): 6 301 to 350 Give (units): 8 Greater than 350 Give (units): 10 Call MD if Blood Glucose > : 350 Rx Instructions: 8-12 units SLIDING SCALE Referrals: Martin Ruelas MD [Physician] - (for toe) Toya Panchal MD [Physician] - (for finger) Print Language: Wolof
--- NOTE | 2024-02-13 03:49 | PC.NURSE ---
stick puller at desk side, attempted to reach pt family for transport. Adelita([phone]) and Parag ([phone]) did not answer at this time.
[2024-02-13 04:43] VITALS: BP 171/68; PULSE 72; RESP 18; TEMP 36.8; O2SAT 96
[2024-02-13 04:56] VITALS: BP 171/68; PULSE 72; RESP 18; TEMP 36.8; O2SAT 96
--- NOTE | 2024-02-13 04:56 | PC.NURSE ---
ems at bedside to transport pt home, report given to ems
--- NOTE | 2024-02-13 09:29 | MHC.CM.ED ---
Addendum entered by Robyn Kendall 02/13/24 09:34: Patient's daughter, Adelita's telephone is [phone]. Original Note: Received sew out operator consult from Dr Donis. Patient came to the ER due to being worried about right middle finger wound and right 2nd gangrene toe. Work up did not indicate patient needed inpatient admission. Patient was just d/c'd from [facility] on 02/09 with Syed PONCE. Per Syed PONCE, patient declined their services. NA was going to try and re-see patient today. Patient is active with [facility]. Spoke with Jennifer, transition of care RN for [facility]. Apparently communication with patient and daughter, Adelita, have been difficult. Jennifer will notify lead caregiver regarding need for outpatient follow up. Dr Donis requesting wound care appointment. Wound Care has been asked to reach out to patient and family. Patient's telephone number is [phone]. Patient's son, Parag's telephone number is [phone].
== END 2024-02-13 04:57 | disposition home or self-care (01) ==
PROVIDERS: Emergency Provider Emergency Medicine; PCP Internal Medicine
DX: E11.52 Type 2 diabetes mellitus with diabetic peripheral angiopathy with gangrene (principal); E11.22 Type 2 diabetes mellitus with diabetic chronic kidney disease; I50.84 End stage heart failure; N18.6 End stage renal disease; I13.2 Hypertensive heart and chronic kidney disease with heart failure and with stage 5 chronic kidney disease, or end stage renal disease; Z79.899 Other long term (current) drug therapy; Z79.4 Long term (current) use of insulin
CPT/HCPCS: 36415; 80048; 85025; 85610; 99283; 99284

== ENCOUNTER 2024-03-01 22:23 | Emergency (ER) | payer OTHER, SELFPAY ==
--- NOTE | 2024-03-01 | ECG_ITS ---
Test Reason : DIZZINESS Blood Pressure : / mmHG Vent. Rate : 070 BPM Atrial Rate : 070 BPM P-R Int : 134 ms QRS Dur : 140 ms QT Int : 490 ms P-R-T Axes : 075 -14 228 degrees QTc Int : 529 ms Artifact in tracing Normal sinus rhythm Non-specific intra-ventricular conduction block Minimal voltage criteria for LVH, may be normal variant ( Heriberto product ) Cannot rule out Anterior infarct , age undetermined T wave abnormality, consider inferolateral ischemia Abnormal ECG When compared with ECG of 07-FEB-2024 19:02, No significant changes seen Referred By: Generic ED Physician Electronically Signed By:MYESHA FREY
--- NOTE | ~2024-03-01 | XR_ITS ---
EXAMINATION: XR CHEST CLINICAL INFORMATION: Cough. COMPARISON: Chest radiograph dated 02/07/2024. TECHNIQUE: Frontal view of the chest was obtained. FINDINGS: The right sided dual lumen catheter is unchanged in position. The cardiac silhouette remains enlarged. There is a grossly stable right perihilar opacity. The left lung remains relatively clear with the exception of linear atelectasis at the left lung base. There is no large pleural effusion. There is no pneumothorax. No acute osseous abnormality. XR/XR chest 1V IMPRESSION: There is a grossly stable right perihilar opacity for which an infection is not excluded. Recommend short-term follow-up examination. There is stable cardiomegaly.
[2024-03-01 22:28] VITALS: BP 145/51; PULSE 70; O2SAT 94; BMI 27.5
[2024-03-01 22:34] VITALS: BP 143/100; PULSE 70; RESP 16; TEMP 36.7; O2SAT 94
[2024-03-01 22:40] VITALS: BP 150/88; PULSE 69; RESP 19; O2SAT 96
[2024-03-01 22:53] LABS: Basophils Percent Auto 0.4 % (0-2); Eosinophils Absolute Auto 0.1 X10*3/uL (0.0-0.4); Eosinophils Percent Auto 0.8 % (0-4); Hematocrit 29.6 % (37.0-47.0); Hemoglobin 9.6 g/dl (12.0-16.0); Imm Gran Abs Auto 0.04 X10*3/uL (0.00-0.03); Imm Gran Pct Auto 0.5 % (0.0-0.4); Lymphocytes Absolute Auto 1.5 X10*3/uL (1.2-4.9); Lymphocytes Percent Auto 17.9 % (20-40); Mean Corpuscular HGB Conc 32.4 g/dl (31.0-35.0); Mean Corpuscular Hemoglobin 27.7 pg (27.0-33.0); Mean Corpuscular Volume 85.3 fL (80.0-98.0); Monocytes Absolute Auto 0.9 X10*3/uL (0.1-1.2); Monocytes Percent Auto 10.1 % (2-11); Neutrophils Absolute Auto 5.9 x10*3/uL (2.0-8.3); Neutrophils Percent Auto 70.3 % (45-73); Platelet Count 149 X10*3/uL (160-400); Red Blood Count 3.47 X10*6/uL (4.20-5.50); Red Cell Distribution Width 14.5 % (11.0-16.0); White Blood Count 8.4 X10*3/uL (4.8-10.8)
[2024-03-01 22:57] LABS: MANUAL DIFF FLAG SCAN; NRBC Pct Auto 1.1 /100WBC (0.0-0.2)
[2024-03-01 23:09] LABS: Alanine Aminotransferase < 5 U/L (0-31); Albumin Level 2.9 g/dL (3.5-5.0); Alkaline Phosphatase 184 U/L (39-117); Anion Gap 19 (12-20); Aspartate Amino Transferase 14 U/L (5-31); Bilirubin Total 0.3 mg/dL (0.0-1.0); Blood Urea Nitrogen 14 mg/dL (9-16); Calcium 8.2 mg/dL (8.4-10.2); Carbon Dioxide 24 mmol/L (22-29); Chloride 100 mmol/L (96-108); Creatinine Clr Calc Pharmacy 20.8; Estimated Glomerular Filt Rate 23; Glucose Random 296 mg/dL (60-115); Potassium 3.9 mmol/L (3.3-5.1); Sodium 139 mmol/L (135-145); Total Protein 6.9 g/dL (6.5-8.0)
[2024-03-01 23:15] LABS: Troponin-I High Sensitivity 25.8 ng/L (<3.5-17.0)
--- NOTE | 2024-03-01 23:16 | ED.GENADULT ---
HPI - General Adult General Chief complaint: Dizziness Stated complaint: DIZZY,PAIN AFTER COUGHING Time Seen by Provider: 03/01/24 23:13 Source: patient Mode of arrival: EMS Limitations: no limitations History of Present Illness ED Provider: Dr. Kaushal Camara HPI narrative: 68-year-old female with a history of end-stage renal disease dialyzed Monday, Monday, Monday, congestive heart failure, diabetes, nonischemic cardiomyopathy, GERD , left BKA who presents emergency department for evaluation of cough x2 days. She states the cough is occasionally productive of thick sputum but is mainly nonproductive. She states that the cough has been giving her chest pain and making her lightheaded and dizzy. She denied fever or chills. Patient is a dialysis patient and she did get dialyzed today and she states that it was a full dialysis. Related Data Home Medications ?Medication ?Instructions ?Recorded ?Confirmed aspirin 81 mg tablet,delayed 81 mg PO BEDTIME 06/20/21 02/08/24 release atorvastatin 80 mg tablet 80 mg PO BEDTIME 06/20/21 02/08/24 clopidogrel 75 mg tablet 75 mg PO DAILY 06/20/21 02/08/24 magnesium oxide 400 mg (241.3 mg 400 mg PO DAILY 04/20/23 02/08/24 magnesium) tablet blood sugar diagnostic (OneTouch #10 ea 05/25/23 Ultra Test strips) insulin aspart U-100 100 unit/mL See Protocol subcut NEEDED PRN 05/25/23 02/08/24 (3 mL) subcutaneous pen (Novolog bs >200 FlexPen U-100 Insulin aspart) lancets 33 gauge (OneTouch Delica #100 ea 05/25/23 Plus Lancet) pen needle, diabetic 32 gauge x #1,200 ea 05/25/23/32 (Pentips) melatonin 5 mg tablet 5 - 10 mg PO BEDTIME PRN Sleep 09/21/23 02/08/24 sevelamer carbonate 800 mg tablet 800 mg PO TIDWM 10/08/23 02/08/24 albuterol sulfate 90 mcg/actuation 2 inh inhalation Q6H PRN shortness 01/02/24 02/08/24 breath activated powder inhaler of breath or wheezing cholecalciferol (vitamin D3) 1,250 1,250 mcg PO QWEEK 01/02/24 02/08/24 mcg (50,000 unit) capsule pantoprazole 40 mg tablet,delayed 40 mg PO DAILY@0630 01/02/24 02/08/24 release Previous Rx's ?Medication ?Instructions ?Recorded carvedilol 12.5 mg tablet 12.5 mg PO BIDWM #60 tabs 10/11/23 valsartan 80 mg tablet 80 mg PO BID #60 tabs 10/11/23 sennosides 8.6 mg tablet (Natural 17.2 mg (2 x 8.6 mg) PO BEDTIME 11/22/23 Senna Laxative) constipation #60 tabs hydrocortisone 1 % topical cream 1 appl topical TID PRN itching 12/15/23 (Preparation H Hydrocortisone) #28.35 grams lidocaine 5 % topical ointment 1 appl topical QID PRN pain #50 12/15/23 grams cefuroxime axetil 250 mg tablet 250 mg PO DAILY #5 tabs 02/09/24 doxycycline hyclate 100 mg tablet 100 mg PO BID #10 tabs 02/09/24 doxycycline hyclate 100 mg tablet 100 mg PO BID #14 tabs 02/13/24 mupirocin 2 % topical ointment 1 appl topical BID 7 days #15 grams 02/13/24 acetaminophen 325 mg capsule 650 mg (2 x 325 mg) PO Q6H PRN 03/02/24 pain #20 caps amoxicillin 500 mg capsule 500 mg PO TID 5 days #15 caps 03/02/24 Allergies Allergy/AdvReac Type Severity Reaction Status Date / Time lobster AdvReac Hives Verified 03/01/24 22:32 Review of Systems Review of Systems: Yes all other systems are reviewed and are negative [facility] Past Medical History [facility] Narrative: Social history: She lives at home with her daughter and her grandson. She denies tobacco, alcohol and drug use. Medical History Bilateral visual loss Open wnd toe-complicated Wound, open, hand with or without fingers with complication End stage renal disease on dialysis Congestive heart failure Hyperglycemia due to diabetes mellitus Anemia End stage renal disease Heart failure with reduced ejection fraction Dialysis patient, noncompliant Chronic kidney disease Thrombocytopenia CKD (chronic kidney disease) stage 4, GFR 15-29 ml/min Constipation Ischemic necrosis of finger Normocytic anemia Urinary tract infection due to ESBL Klebsiella Chronic heart failure with preserved ejection fraction (HFpEF) Hypomagnesemia Acute on chronic renal failure Essential hypertension HLD (hyperlipidemia) Non-ST elevated myocardial infarction Diabetes mellitus Nonischemic cardiomyopathy Irritable bowel syndrome with diarrhea Gastroparesis GERD (gastroesophageal reflux disease) Surgical History Status post amputation of finger H/O surgical amputation of finger History of laparoscopic cholecystectomy History of intestinal surgery Hx of eye surgery History of esophagogastroduodenoscopy (EGD) Hx of colonoscopy H/O: hysterectomy Family History Family History Father Lung cancer Mother Diabetes HTN (hypertension) Heart disease Sister Diabetes Heart disease Brother Heart disease Son Diabetes Daughter Diabetes Social History Social History Household Members: Children Household Members Other:: daughter and grandson Housing: House Do you presently have visiting nurse or other home services: No (considering her grandson to be LITHOGR[employer]HER APPRENTICE) Unable to assess alcohol history related to: Unable to respond and Unknown Alcohol intake: never Comment: camera in place Patient Tobacco Use Status: Never used Tobacco Smoked in Last 30 Days: No e-Cigarette/Vaping Use: Never Used Second Hand Smoke Exposure: No Advance Directives: Yes Advance Directives on File: Yes Advance Directives Date on File: 01/04/23 Do you have a plan to hurt others: No Plan service: No Current occupational status: disabled Physical Exam ED Vital Signs: Vital Signs - 24 hr 03/01/24 22:34 03/01/24 22:40 03/01/24 23:55 Temperature 98.1 F 98.3 F Pulse Rate 70 69 67 Respiratory Rate 16 19 16 Blood Pressure 143/100 H 150/88 H 153/52 H Pulse Oximetry 94 96 95 Oxygen Delivery Method Room Air Room Air Room Air BMI result Body Mass Index 27.5 Vital signs were normal except for an elevated blood pressure of 143/100 Exam: General: Awake, alert in no distress Head: Normocephalic, atraumatic EENT: PERRL, Lids normal, sclera normal, conjunctiva normal, nose normal , ears normal, throat without erythema or exudates Neck: Supple, no adenopathy Lung: breath sounds symmetric, no wheezing, rales or rhonchi Chest: symmetric movement, nontender Heart: regular rate and rhythm, normal S1, S2 no murmurs or rubs Abdomen: soft, non-tender, nondistended, normal bowel sounds Back: no vertebral tenderness, no CVAT Extremities: Left BKA Neuro: Awake, alert, oriented, normal speech, cranial nerves intact Medications Administered Discontinued Medications Generic Name Dose Route Start Last Admin Trade Name Wang PRN Reason Stop Dose Admin Acetaminophen 650 mg 03/01/24 23:29 03/01/24 23:54 Acetaminophen 325 Mg Tablet PO 03/01/24 23:30 650 mg ONCE ONE Administration Amoxicillin 500 mg 03/01/24 23:29 03/01/24 23:54 Amoxicillin 500 Mg Capsule PO 03/01/24 23:30 500 mg ONCE ONE Administration Medical Decision Making Medical Decision Making [facility] Narrative: 68-year-old female with a history of end-stage renal disease dialyzed Monday, Monday, Monday, congestive heart failure, diabetes, nonischemic cardiomyopathy, GERD , left BKA who presents emergency department for evaluation of cough x2 days. Patient states that her cough is mainly nonproductive and occasionally productive of thick sputum. Patient's coughing spells make her feel lightheaded, dizzy as if she was going to pass out. She also states that she has pleuritic chest pain with coughing. She denied fever or chills. Vital signs revealed an elevated blood pressure. Physical examination was unremarkable Differential diagnosis: ?Includes but is not limited to pneumonia, bronchitis, viral syndrome, myocardial infarction, myocardial ischemia, electrolyte abnormalities, anemia Following evaluation was ordered: CBC, CMP, troponin, COVID-19, RSV, influenza Patient was initially treated with the following: Amoxicillin 500 mg orally, Tylenol 650 mg orally Course: 00:13 My independent interpretation patient's laboratory evaluation as follows: Normocytic anemia with an H&H of 9.6 and 29.6-chronic. Low platelet count a [id number]. WBC was normal 8400. BUN was normal 14 with an elevated creatinine of 2.09. COVID 19, influenza and RSV were negative. Patient's chest x-ray did not reveal any acute infiltrates, patient has a chronic appearing infiltrate in her right lower lobe. Patient's presentation is consistent with acute bronchitis. Patient was prescribed amoxicillin 500 mg 3 times a day for 5 days and Tylenol 650 mg every 6 hours as needed for pain. She was given printed and verbal instructions and discharged home. Admission/Observation Consideration of admission/observation: Escalation of care including admission/observation considered Lab Data MDM Lab Attestation statement: I reviewed the patient's lab results. 03/01/24 22:47 03/01/24 22:46 Labs: Lab Results 03/01/24 03/01/24 Range/Units 22:46 22:47 WBC 8.4 (4.8-10.8) X10*3/uL RBC 3.47 L (4.20-5.50) X10*6/uL Hgb 9.6 L (12.0-16.0) g/dl Hct 29.6 L (37.0-47.0) % MCV 85.3 (80.0-98.0) fL MCH 27.7 (27.0-33.0) pg MCHC 32.4 (31.0-35.0) g/dl RDW 14.5 (11.0-16.0) % Plt Count 149 L (160-400) X10*3/uL MPV 11.0 (9.4-12.3) fL Immature Gran % (Auto) 0.5 H (0.0-0.4) % Neut % (Auto) 70.3 (45-73) % Lymph % (Auto) 17.9 L (20-40) % [place] % (Auto) 10.1 (2-11) % Eos % (Auto) 0.8 (0-4) % Baso % (Auto) 0.4 (0-2) % Lymph # (Auto) 1.5 (1.2-4.9) X10*3/uL [place] # (Auto) 0.9 (0.1-1.2) X10*3/uL Eos # (Auto) 0.1 (0.0-0.4) X10*3/uL Baso # (Auto) 0.0 (0.0-0.2) X10*3/uL Abs Immat Gran (auto) 0.04 H (0.00-0.03) X10*3/uL Absolute Neuts (auto) 5.9 (2.0-8.3) x10*3/uL Absolute Nucleated RBC 0.090 H (0.0-0.012) X10*3/uL Nucleated RBC % (auto) 1.1 H (0.0-0.2) /100WBC Smear Tech's Comments VERIFIED Sodium 139 (135-145) mmol/L Potassium 3.9 (3.3-5.1) mmol/L Chloride 100 (96-108) mmol/L Carbon Dioxide 24 (22-29) mmol/L Anion Gap 19 (12-20) BUN 14 (9-16) mg/dL Creatinine 2.09 H (0.5-1.4) mg/dL Estim Creat Clear Calc 20.8 Estimated GFR 23 Random Glucose 296 H (60-115) mg/dL Calcium 8.2 L (8.4-10.2) mg/dL Total Bilirubin 0.3 (0.0-1.0) mg/dL AST 14 (5-31) U/L ALT < 5 (0-31) U/L Alkaline Phosphatase 184 H (39-117) U/L Troponin I High Sens 25.8 H (<3.5-17.0) ng/L Total Protein 6.9 (6.5-8.0) g/dL Albumin 2.9 L (3.5-5.0) g/dL Influenza Type A (PCR) NEGATIVE (Negative) Influenza Type B (PCR) NEGATIVE (Negative) RSV RNA Qual (PCR) NEGATIVE (Negative) SARS-CoV-2 RNA (RT-PCR) NEGATIVE (Negative) Independent Interpretation I performed an independent interpretation of an: Plain X-Ray Interpretation: My independent interpretation patient's one-view chest x-ray is as follows: Right lower lobe infiltrate-unchanged from previous exam Radiology Impression Discussion of test interpretation with radiology: I have reviewed the radiologist's reading. Radiologist Impression: XR chest 1V IMPRESSION: There is a grossly stable right perihilar opacity for which an infection is not excluded. Recommend short-term follow-up examination. There is stable cardiomegaly. Dictated By: Tiago Soria Jr DO External Record Review External record reviewed: Office record Prescription Management I considered prescription management with: Pain Medication and Antibiotic Chronic Conditions Patient?s care impacted by: Diabetes and Other (End-stage renal disease) Discharge Plan Discharge Clinical Impression: Bronchitis, Pleuritic chest pain Patient Disposition: Home, Self-Care Instructions: Acute Bronchitis (ED) Additional Instructions: Your blood work was unremarkable and consistent with your kidney disease The chest x-ray did not reveal any evidence for pneumonia Your symptoms are consistent with infection of your breathing tubes (bronchitis) Take amoxicillin 500 mg pills, 1 pills, every 6 hours (3 times a day) for 5 days. Take Tylenol (acetaminophen) 325 mg pills, 2 pills every 6 hours as needed for pain or fever. Follow-up with your doctor in 2 days. Please return to the emergency department if your symptoms get worse or if you develop any symptoms that are concerning to you. Prescriptions: New amoxicillin 500 mg capsule 500 mg PO TID 5 Days Qty: 15 0RF acetaminophen 325 mg capsule 650 mg PO Q6H PRN (Reason: pain) Qty: 20 0RF No Action atorvastatin 80 mg tablet 80 mg PO BEDTIME clopidogrel 75 mg tablet 75 mg PO DAILY aspirin 81 mg tablet,delayed release (DR/EC) 81 mg PO BEDTIME magnesium oxide 400 mg (241.3 mg magnesium) tablet 400 mg PO DAILY sevelamer carbonate 800 mg tablet 800 mg PO TIDWM carvedilol 12.5 mg Tablet 12.5 mg PO BIDWM Qty: 60 1RF Protocol: Hold for SBP/HR < HOLD for SBP < : 90 HOLD for HR < : 60 valsartan 80 mg Tablet 80 mg PO BID Qty: 60 1RF Protocol: Hold for SBP< HOLD for SBP < : 90 lidocaine 5 % ointment 1 appl topical QID PRN (Reason: pain) Qty: 50 0RF Rx Instructions: applied to anal area 15 minutes prior to attempted bowel movement hydrocortisone [Preparation H Hydrocortisone] 1 % cream 1 appl topical TID PRN (Reason: itching) Qty: 28.35 0RF cefuroxime axetil 250 mg tablet 250 mg PO DAILY Qty: 5 0RF Rx Instructions: take after dialysis on dialysis days doxycycline hyclate 100 mg tablet 100 mg PO BID Qty: 10 0RF melatonin 5 mg tablet 5 - 10 mg PO BEDTIME PRN (Reason: Sleep) cholecalciferol (vitamin D3) 1,250 mcg (50,000 unit) capsule 1,250 mcg PO QWEEK pantoprazole 40 mg tablet,delayed release (DR/EC) 40 mg PO DAILY@0630 Rx Instructions: take one tablet half an hour before breakfast albuterol sulfate 90 mcg/actuation aerosol powdr breath activated 2 inh inhalation Q6H PRN (Reason: shortness of breath or wheezing) mupirocin 2 % ointment 1 appl topical BID 7 Days Qty: 15 0RF doxycycline hyclate 100 mg tablet 100 mg PO BID Qty: 14 0RF sennosides [Natural Senna Laxative] 8.6 mg tablet 17.2 mg PO BEDTIME Qty: 60 3RF (DME) lancets [OneTouch Delica Plus Lancet] 33 gauge misc See Rx Instructions .ROUTE TID Qty: 100 Rx Instructions: As directed (DME) pen needle, diabetic [Pentips] 32 gauge x 5/32 needle See Rx Instructions .ROUTE DIRECTED Qty: 1200 Rx Instructions: As directed (DME) OneTouch Ultra Test Strip See Rx Instructions .ROUTE TID Qty: 10 Rx Instructions: As directed insulin aspart U-100 [Novolog FlexPen U-100 Insulin] 100 unit/mL (3 mL) insulin pen See Protocol subcut NEEDED PRN (Reason: bs >200) Protocol: Insulin Correction Scale Less than or equal to 110 ---- Give (units): 0 111 to 150 Give (units): 0 151 to 200 Give (units): 2 201 to 250 Give (units): 4 251 to 300 Give (units): 6 301 to 350 Give (units): 8 Greater than 350 Give (units): 10 Call MD if Blood Glucose > : 350 Rx Instructions: 8-12 units SLIDING SCALE Print Language: Mozambican
[2024-03-01 23:21] LABS: SLIDE REVIEW VERIFIED
[2024-03-01 23:29] LABS: Influenza A PCR NEGATIVE (Negative); Influenza B PCR NEGATIVE (Negative); Resp Syncy Virus RNA Qual PCR NEGATIVE (Negative); SARS COV2 PCR INHOUSE NEGATIVE (Negative)
[2024-03-01] MEDS: Amoxicillin 500 MG CAPSULE PO (23:54)
[2024-03-01] MEDS: Acetaminophen 325 MG TABLET 650 MG PO (23:54)
[2024-03-01 23:55] VITALS: BP 153/52; PULSE 67; RESP 16; TEMP 36.8; O2SAT 95
[2024-03-02 00:45] VITALS: BP 153/52; PULSE 67; RESP 16; TEMP 36.8; O2SAT 95
== END 2024-03-02 01:03 | disposition home or self-care (01) ==
PROVIDERS: Emergency Provider Emergency Medicine Emergency Medical Services
DX: J40 Bronchitis, not specified as acute or chronic (principal); R07.81 Pleurodynia; E11.22 Type 2 diabetes mellitus with diabetic chronic kidney disease; I13.2 Hypertensive heart and chronic kidney disease with heart failure and with stage 5 chronic kidney disease, or end stage renal disease; I50.32 Chronic diastolic (congestive) heart failure; N18.6 End stage renal disease; Z99.2 Dependence on renal dialysis; Z03.818 Encounter for observation for suspected exposure to other biological agents ruled out
CPT/HCPCS: 0241U; 71045; 80053; 84484; 85025; 93005; 99283; 99284

== ENCOUNTER → 2024-03-01 22:33 | Outpatient (BNV) | payer OTHER, SELFPAY | PROVIDERS: Emergency Provider Emergency Medicine Emergency Medical Services; Visit Provider Internal Medicine | DX: R42 Dizziness and giddiness (principal) | CPT/HCPCS: 93010 ==

== ENCOUNTER 2024-03-25 02:19 | Emergency (ER) | payer OTHER, SELFPAY ==
[2024-03-25] VITALS (7 sets, daily range): BP systolic 137–173; BP diastolic 64–75; PULSE 67–70; RESP 13–20; TEMP 36.6–36.8; O2SAT 93–98; BMI 32.0
--- NOTE | 2024-03-25 | ECG_ITS ---
Test Reason : SOB Blood Pressure : / mmHG Vent. Rate : 070 BPM Atrial Rate : 070 BPM P-R Int : 144 ms QRS Dur : 130 ms QT Int : 458 ms P-R-T Axes : 049 -16 207 degrees QTc Int : 494 ms Normal sinus rhythm Non-specific intra-ventricular conduction block Minimal voltage criteria for LVH, may be normal variant ( Heriberto product ) Cannot rule out Anterior infarct (cited on or before 01-MAR-2024) T wave abnormality, consider inferolateral ischemia Abnormal ECG When compared with ECG of 01-MAR-2024 22:33, Serial changes of Anterior infarct Present Referred By: Generic ED Physician Electronically Signed By:LUCRECIA PILLAI MD
--- NOTE | ~2024-03-25 | XR_ITS ---
EXAMINATION: XR CHEST CLINICAL INFORMATION: Shortness of breath. COMPARISON: 03/01/2024 TECHNIQUE: Frontal view of the chest was obtained. FINDINGS: The patient is rotated. The cardiomediastinal silhouette is stable. A dual-lumen central catheter is noted in position. There is mild diffuse increased markings and faint bilateral mid to lower lung field opacities greater on the right. The bony structures and soft tissues are unremarkable. XR/XR chest 1V IMPRESSION: Mild diffuse increased interstitial markings and faint bilateral mid to lower lung field opacities greater on the right. Findings possibly related to interstitial and early pulmonary edema versus pneumonia particularly on the right.
--- NOTE | 2024-03-25 02:53 | ED_ITS ---
HPI - General Adult General Chief complaint: Dyspnea Stated complaint: SOB x1HOUR Time Seen by Provider: 03/25/24 02:53 History of Present Illness ED Provider: Avi REECE narrative: The patient is a 69-year-old female with a history of chronic renal failure on dialysis. She receives dialysis on Mondays, Wednesdays, and Fridays. She was home tonight when she developed shortness of breath about an hour before arriving at the hospital. She called an ambulance and was brought to the hospital. She denies any fever or cough. She denies any abdominal pain, nausea, vomiting. I later spoke to a nurse at the patient's dialysis unit. She says that although the patient had dialysis 3 days ago on Monday the patient had missed several dialysis appointments recently and often does missed dialysis appointments. Related Data Home Medications ?Medication ?Instructions ?Recorded ?Confirmed aspirin 81 mg tablet,delayed 81 mg PO BEDTIME 06/20/21 02/08/24 release atorvastatin 80 mg tablet 80 mg PO BEDTIME 06/20/21 02/08/24 clopidogrel 75 mg tablet 75 mg PO DAILY 06/20/21 02/08/24 magnesium oxide 400 mg (241.3 mg 400 mg PO DAILY 04/20/23 02/08/24 magnesium) tablet blood sugar diagnostic (OneTouch #10 ea 05/25/23 Ultra Test strips) insulin aspart U-100 100 unit/mL See Protocol subcut NEEDED PRN 05/25/23 02/08/24 (3 mL) subcutaneous pen (Novolog bs >200 FlexPen U-100 Insulin aspart) lancets 33 gauge (OneTouch Delica #100 ea 05/25/23 Plus Lancet) pen needle, diabetic 32 gauge x #1,200 ea 05/25/23 5/32 (Pentips) melatonin 5 mg tablet 5 - 10 mg PO BEDTIME PRN Sleep 09/21/23 02/08/24 sevelamer carbonate 800 mg tablet 800 mg PO TIDWM 10/08/23 02/08/24 albuterol sulfate 90 mcg/actuation 2 inh inhalation Q6H PRN shortness 01/02/24 02/08/24 breath activated powder inhaler of breath or wheezing cholecalciferol (vitamin D3) 1,250 1,250 mcg PO QWEEK 01/02/24 02/08/24 mcg (50,000 unit) capsule pantoprazole 40 mg tablet,delayed 40 mg PO DAILY@0630 01/02/24 02/08/24 release Previous Rx's ?Medication ?Instructions ?Recorded carvedilol 12.5 mg tablet 12.5 mg PO BIDWM #60 tabs 10/11/23 valsartan 80 mg tablet 80 mg PO BID #60 tabs 10/11/23 sennosides 8.6 mg tablet (Natural 17.2 mg (2 x 8.6 mg) PO BEDTIME 11/22/23 Senna Laxative) constipation #60 tabs hydrocortisone 1 % topical cream 1 appl topical TID PRN itching 12/15/23 (Preparation H Hydrocortisone) #28.35 grams lidocaine 5 % topical ointment 1 appl topical QID PRN pain #50 12/15/23 grams cefuroxime axetil 250 mg tablet 250 mg PO DAILY #5 tabs 02/09/24 doxycycline hyclate 100 mg tablet 100 mg PO BID #10 tabs 02/09/24 doxycycline hyclate 100 mg tablet 100 mg PO BID #14 tabs 02/13/24 mupirocin 2 % topical ointment 1 appl topical BID 7 days #15 grams 02/13/24 acetaminophen 325 mg capsule 650 mg (2 x 325 mg) PO Q6H PRN 03/02/24 pain #20 caps amoxicillin 500 mg capsule 500 mg PO TID 5 days #15 caps 03/02/24 Allergies Allergy/AdvReac Type Severity Reaction Status Date / Time lobster AdvReac Hives Verified 03/25/24 02:26 Review of Systems 2 Review of Systems: Yes all other systems are reviewed and are negative [facility] Past Medical History Medical History Bilateral visual loss Open wnd toe-complicated Wound, open, hand with or without fingers with complication End stage renal disease on dialysis Congestive heart failure Hyperglycemia due to diabetes mellitus Anemia End stage renal disease Heart failure with reduced ejection fraction Dialysis patient, noncompliant Chronic kidney disease Thrombocytopenia CKD (chronic kidney disease) stage 4, GFR 15-29 ml/min Constipation Ischemic necrosis of finger Normocytic anemia Urinary tract infection due to ESBL Klebsiella Chronic heart failure with preserved ejection fraction (HFpEF) Hypomagnesemia Acute on chronic renal failure Essential hypertension HLD (hyperlipidemia) Non-ST elevated myocardial infarction Diabetes mellitus Nonischemic cardiomyopathy Irritable bowel syndrome with diarrhea Gastroparesis GERD (gastroesophageal reflux disease) Surgical History Status post amputation of finger H/O surgical amputation of finger History of laparoscopic cholecystectomy History of intestinal surgery Hx of eye surgery History of esophagogastroduodenoscopy (EGD) Hx of colonoscopy H/O: hysterectomy Family History Family History Father Lung cancer Mother Diabetes HTN (hypertension) Heart disease Sister Diabetes Heart disease Brother Heart disease Son Diabetes Daughter Diabetes Social History Social History Household Members: Children Household Members Other:: daughter and grandson Housing: House Do you presently have visiting nurse or other home services: No (considering her grandson to be [employer]) Unable to assess alcohol history related to: Unable to respond and Unknown Alcohol intake: never Comment: camera in place Patient Tobacco Use Status: Never used Tobacco Smoked in Last 30 Days: No e-Cigarette/Vaping Use: Never Used Second Hand Smoke Exposure: No Use of substances other than those prescribed or required for medical reasons: No Advance Directives: Yes Advance Directives on File: Yes Advance Directives Date on File: 01/04/23 Do you have a plan to hurt others: No Plan service: No Current occupational status: disabled Physical Exam ED Vital Signs: Vital Signs - 24 hr 03/25/24 02:23 03/25/24 04:10 03/25/24 04:17 Temperature 98 F 98.3 F Pulse Rate 69 70 70 Respiratory Rate 18 20 17 Blood Pressure 148/64 H 151/70 H Pulse Oximetry 98 93 Oxygen Delivery Method Room Air Oxygen Flow Rate 03/25/24 05:13 03/25/24 06:26 Temperature 98.2 F Pulse Rate 70 Respiratory Rate 20 Blood Pressure 173/67 H 169/72 H Pulse Oximetry 96 Oxygen Delivery Method Nasal Cannula Oxygen Flow Rate 2 BMI result Body Mass Index 32.0 Const Other: The patient is a chronically ill-appearing 69-year-old who was awake and alert and looks mildly short of breath. HENMT Other: Face is symmetrical. Mucous membranes are moist. Tongue is midline. Eyes Other: Pupils are round equal, conjunctivae are clear Neck Other: Mildly prominent external jugular veins but no danielle JVD. Resp Other: The patient has crackles at the bases. Cardio Rate: regular rate Rhythm: regular rhythm Heart sounds: S1 normal heart sound present and S2 normal heart sound present GI Other: Abdomen is soft and nontender Skin Other: Skin is dry and unremarkable Neuro Other: The patient is awake and alert. Face is symmetrical. Speech is clear. She seems to move her extremities symmetrically. She seems to be grossly neurologically intact. Extrem Other: One to 2+ edema of the lower legs. Medications Administered Discontinued Medications Generic Name Dose Route Start Last Admin Trade Name Freq PRN Reason Stop Dose Admin Albuterol/Ipratropium 3 ml 03/25/24 04:04 03/25/24 04:10 Albuterol/Iprat 2.5/0.5mg 3 Ml Ampul.Neb INHALE 03/25/24 04:05 3 ml ONCE ONE Administration Furosemide 80 mg 03/25/24 05:52 03/25/24 06:26 Furosemide 100 Mg/10 Ml Vial IVPUSH 03/25/24 05:53 80 mg ONCE ONE Administration Protocol Medical Decision Making Medical Decision Making [facility] Narrative: The patient is a 69-year-old female who is a dialysis patient who presents with shortness of breath. She has crackles on exam. Her chest x-ray is consistent with pulmonary edema. Her BNP has gone up. She is afebrile and has a normal white count, unremarkable differential, and a normal C-reactive protein. I doubt she has a pneumonia. Patient was treated with bronchodilators and with 80 mg of IV furosemide. She seemed to improve. I spoke to Dr. Monroe of Nephrology. I believe she would be appropriate to discharge from the emergency room to go to her Monday morning dialysis. I contacted the dialysis center and I was told that her normal appointment time was 10:30 this morning. We will try to make arrangements to get her taken to dialysis after discharged from the emergency room. Lab Data 03/25/24 03:51 03/25/24 03:51 Labs: Lab Results 03/25/24 03/25/24 Range/Units 03:51 03:54 WBC 8.0 (4.8-10.8) X10*3/uL RBC 3.54 L (4.20-5.50) X10*6/uL Hgb 9.9 L (12.0-16.0) g/dl Hct 31.0 L (37.0-47.0) % MCV 87.6 (80.0-98.0) fL MCH 28.0 (27.0-33.0) pg MCHC 31.9 (31.0-35.0) g/dl RDW 14.5 (11.0-16.0) % Plt Count 144 L (160-400) X10*3/uL MPV 10.5 (9.4-12.3) fL Immature Gran % (Auto) 0.3 (0.0-0.4) % Neut % (Auto) 71.8 (45-73) % Lymph % (Auto) 16.1 L (20-40) % [place] % (Auto) 9.3 (2-11) % Eos % (Auto) 2.1 (0-4) % Baso % (Auto) 0.4 (0-2) % Lymph # (Auto) 1.3 (1.2-4.9) X10*3/uL [place] # (Auto) 0.7 (0.1-1.2) X10*3/uL Eos # (Auto) 0.2 (0.0-0.4) X10*3/uL Baso # (Auto) 0.0 (0.0-0.2) X10*3/uL Abs Immat Gran (auto) 0.02 (0.00-0.03) X10*3/uL Absolute Neuts (auto) 5.7 (2.0-8.3) x10*3/uL Absolute Nucleated RBC 0.000 (0.0-0.012) X10*3/uL Nucleated RBC % (auto) 0.0 (0.0-0.2) /100WBC VBG pH 7.44 H (7.32-7.43) VBG pCO2 51 mmHg VBG pO2 41 mmHg VBG HCO3 35 H (22-26) mmol/L VBG O2 Saturation 65.0 % VBG Base Excess 10.5 mmol/L Sodium 137 (135-145) mmol/L Potassium 5.0 D (3.3-5.1) mmol/L Chloride 100 (96-108) mmol/L Carbon Dioxide 27 (22-29) mmol/L Anion Gap 15 (12-20) BUN 23 H (9-16) mg/dL Creatinine 3.08 H (0.5-1.4) mg/dL Estim Creat Clear Calc 13.8 Estimated GFR 15 Random Glucose 242 H (60-115) mg/dL Calcium 8.2 L (8.4-10.2) mg/dL Magnesium 1.7 (1.6-2.6) mg/dL Total Bilirubin 0.3 (0.0-1.0) mg/dL Direct Bilirubin 0.2 (0.0-0.5) mg/dL AST 9 (5-31) U/L ALT < 5 (0-31) U/L Alkaline Phosphatase 177 H (39-117) U/L Troponin I High Sens 25.8 H (<3.5-17.0) ng/L C-Reactive Protein 0.15 (< or = 0.50) mg/dL B-Natriuretic Peptide 4594 H (<100) pg/mL Total Protein 6.6 (6.5-8.0) g/dL Albumin 2.9 L (3.5-5.0) g/dL Influenza Type A (PCR) NEGATIVE (Negative) Influenza Type B (PCR) NEGATIVE (Negative) RSV RNA Qual (PCR) NEGATIVE (Negative) SARS-CoV-2 RNA (RT-PCR) NEGATIVE (Negative) Discharge Plan Discharge Clinical Impression: Shortness of breath, Fluid overload Patient Disposition: Home, Self-Care Additional Instructions: You are being discharged to go to your regular Monday morning dialysis appointment. You seemed to have a bit too much fluid and this made you feel short of breath. Please make sure you do not miss any dialysis in the future. Return to the emergency room if worse. Prescriptions: No Action atorvastatin 80 mg tablet 80 mg PO BEDTIME clopidogrel 75 mg tablet 75 mg PO DAILY aspirin 81 mg tablet,delayed release (DR/EC) 81 mg PO BEDTIME magnesium oxide 400 mg (241.3 mg magnesium) tablet 400 mg PO DAILY sevelamer carbonate 800 mg tablet 800 mg PO TIDWM carvedilol 12.5 mg Tablet 12.5 mg PO BIDWM Qty: 60 1RF Protocol: Hold for SBP/HR < HOLD for SBP < : 90 HOLD for HR < : 60 valsartan 80 mg Tablet 80 mg PO BID Qty: 60 1RF Protocol: Hold for SBP< HOLD for SBP < : 90 lidocaine 5 % ointment 1 appl topical QID PRN (Reason: pain) Qty: 50 0RF Rx Instructions: applied to anal area 15 minutes prior to attempted bowel movement hydrocortisone [Preparation H Hydrocortisone] 1 % cream 1 appl topical TID PRN (Reason: itching) Qty: 28.35 0RF cefuroxime axetil 250 mg tablet 250 mg PO DAILY Qty: 5 0RF Rx Instructions: take after dialysis on dialysis days doxycycline hyclate 100 mg tablet 100 mg PO BID Qty: 10 0RF amoxicillin 500 mg capsule 500 mg PO TID 5 Days Qty: 15 0RF acetaminophen 325 mg capsule 650 mg PO Q6H PRN (Reason: pain) Qty: 20 0RF melatonin 5 mg tablet 5 - 10 mg PO BEDTIME PRN (Reason: Sleep) cholecalciferol (vitamin D3) 1,250 mcg (50,000 unit) capsule 1,250 mcg PO QWEEK pantoprazole 40 mg tablet,delayed release (DR/EC) 40 mg PO DAILY@0630 Rx Instructions: take one tablet half an hour before breakfast albuterol sulfate 90 mcg/actuation aerosol powdr breath activated 2 inh inhalation Q6H PRN (Reason: shortness of breath or wheezing) mupirocin 2 % ointment 1 appl topical BID 7 Days Qty: 15 0RF doxycycline hyclate 100 mg tablet 100 mg PO BID Qty: 14 0RF sennosides [Natural Senna Laxative] 8.6 mg tablet 17.2 mg PO BEDTIME Qty: 60 3RF (DME) lancets [OneTouch Delica Plus Lancet] 33 gauge misc See Rx Instructions .ROUTE TID Qty: 100 Rx Instructions: As directed (DME) pen needle, diabetic [Pentips] 32 gauge x 5/32 needle See Rx Instructions .ROUTE DIRECTED Qty: 1200 Rx Instructions: As directed (DME) OneTouch Ultra Test Strip See Rx Instructions .ROUTE TID Qty: 10 Rx Instructions: As directed insulin aspart U-100 [Novolog FlexPen U-100 Insulin] 100 unit/mL (3 mL) insulin pen See Protocol subcut NEEDED PRN (Reason: bs >200) Protocol: Insulin Correction Scale Less than or equal to 110 ---- Give (units): 0 111 to 150 Give (units): 0 151 to 200 Give (units): 2 201 to 250 Give (units): 4 251 to 300 Give (units): 6 301 to 350 Give (units): 8 Greater than 350 Give (units): 10 Call if Blood Glucose > : 350 Rx Instructions: 8-12 units SLIDING SCALE Referrals: Jian Chao MD [Physician] - Print Language: Bengali
--- NOTE | 2024-03-25 03:54 | PC.NURSE ---
pt hard stick at this time, unable to obtain IV access, Dr. Blake at bedside to attempt, unable to obtain access. able to obtain labs at this time, labs obtained and sent.
[2024-03-25 03:57] LABS: Basophils Percent Auto 0.4 % (0-2); Eosinophils Absolute Auto 0.2 X10*3/uL (0.0-0.4); Eosinophils Percent Auto 2.1 % (0-4); Hemoglobin 9.9 g/dl (12.0-16.0); Imm Gran Abs Auto 0.02 X10*3/uL (0.00-0.03); Imm Gran Pct Auto 0.3 % (0.0-0.4); Lymphocytes Absolute Auto 1.3 X10*3/uL (1.2-4.9); Lymphocytes Percent Auto 16.1 % (20-40); MANUAL DIFF FLAG NO; Mean Corpuscular HGB Conc 31.9 g/dl (31.0-35.0); Mean Corpuscular Volume 87.6 fL (80.0-98.0); Mean Platelet Volume 10.5 fL (9.4-12.3); Monocytes Absolute Auto 0.7 X10*3/uL (0.1-1.2); Monocytes Percent Auto 9.3 % (2-11); Neutrophils Absolute Auto 5.7 x10*3/uL (2.0-8.3); Neutrophils Percent Auto 71.8 % (45-73); Platelet Count 144 X10*3/uL (160-400); Red Blood Count 3.54 X10*6/uL (4.20-5.50); Red Cell Distribution Width 14.5 % (11.0-16.0)
--- NOTE | 2024-03-25 03:59 | PC.NURSE ---
pt biba from home, a&ox4, respirations even and unlabored. pt reporting increasing shortness of breath and chest pressure x1 day, pt reports when breathing her lungs hurt . pt denies nausea, vomiting, diarrhea. running instructor at bedside. pt 98-99% on room air, normal sinus on tele.
[2024-03-25 04:01] LABS: Venous Blood Gas Refer to POC result
[2024-03-25 04:03] LABS: VBG Base Excess 10.5 mmol/L; VBG HCO3 35 mmol/L (22-26); VBG pCO2 51 mmHg; VBG pH 7.44 (7.32-7.43); VBG pO2 41 mmHg
[2024-03-25] MEDS: Albuterol/Iprat 2.5/0.5MG 3 ML AMPUL.NEB INHALE (04:10)
[2024-03-25 04:14] LABS: Alanine Aminotransferase < 5 U/L (0-31); Albumin Level 2.9 g/dL (3.5-5.0); Alkaline Phosphatase 177 U/L (39-117); Anion Gap 15 (12-20); Aspartate Amino Transferase 9 U/L (5-31); Bilirubin Direct 0.2 mg/dL (0.0-0.5); Bilirubin Total 0.3 mg/dL (0.0-1.0); Blood Urea Nitrogen 23 mg/dL (9-16); C Reactive Protein 0.15 mg/dL (< or = 0.50); Calcium 8.2 mg/dL (8.4-10.2); Carbon Dioxide 27 mmol/L (22-29); Chloride 100 mmol/L (96-108); Creatinine Clr Calc Pharmacy 13.8; Estimated Glomerular Filt Rate 15; Glucose Random 242 mg/dL (60-115); Magnesium 1.7 mg/dL (1.6-2.6); Sodium 137 mmol/L (135-145); Total Protein 6.6 g/dL (6.5-8.0)
[2024-03-25 04:16] LABS: B Type Natriuretic Peptide 4594 pg/mL (<100)
[2024-03-25 04:20] LABS: Troponin-I High Sensitivity 25.8 ng/L (<3.5-17.0)
[2024-03-25 04:36] LABS: Influenza A PCR NEGATIVE (Negative); Influenza B PCR NEGATIVE (Negative); Resp Syncy Virus RNA Qual PCR NEGATIVE (Negative); SARS COV2 PCR INHOUSE NEGATIVE (Negative)
--- NOTE | 2024-03-25 05:38 | PC.NURSE ---
20g ultrasound guided IV placed in the right forearm at this time.
[2024-03-25] MEDS: Furosemide 100 MG/10 ML VIAL 80 MG IVPUSH (06:26)
== END 2024-03-25 09:46 | disposition home or self-care (01) ==
PROVIDERS: Emergency Provider Emergency Medicine
DX: R06.02 Shortness of breath (principal); R07.89 Other chest pain; R11.0 Nausea; Z79.899 Other long term (current) drug therapy; Z03.818 Encounter for observation for suspected exposure to other biological agents ruled out
CPT/HCPCS: 0241U; 36415; 71045; 80048; 80076; 82803; 83735; 83880; 84484; 85025; 86140; 93005; 94640; 96374; 99284; 99285; J1940

== ENCOUNTER → 2024-03-25 02:31 | Outpatient (BNV) | payer OTHER, SELFPAY | PROVIDERS: Emergency Provider Emergency Medicine; Visit Provider Internal Medicine Cardiovascular Disease | DX: R94.31 Abnormal electrocardiogram [ECG] [EKG] (principal); R06.02 Shortness of breath | CPT/HCPCS: 93010 ==

== ENCOUNTER 2024-05-24 14:56 | Inpatient (IN) | payer OTHER, SELFPAY ==
--- NOTE | ~2024-05-24 | XR_ITS ---
History: Shortness of breath and rule out osteomyelitis, pain Exams: Chest one view and right hand 3 views COMPARISON: Radiographs 03/25/2024 FINDINGS: Right side central line similar unchanged. No pneumothorax. Heart size remains prominent. Diffuse interstitial prominence with pleural disease favor interstitial pulmonary edema similar to baseline. No volume loss images on's of atelectasis. Imaging of the right hand demonstrates extensive Monckeberg calcifications suggesting diabetes. Amputation of the second and third phalanges at the level of the mid diaphysis of the middle phalanges noted. There is soft tissue prominence overlying the third remaining phalanx. Heterotopic calcification/ossification evident. There is progressive bone loss of the remaining middle phalanx since the previous exam 01/01/2024 consistent with osteomyelitis. No soft tissue air. XR/XR finger RT min 2V IMPRESSION: 1. Findings favor interstitial pulmonary edema similar to baseline. 2. Osteomyelitis of the remaining third digit as above. Electronically signed by: Alfonso Zuleta MD 05/24/2024 06:02 PM EDT RP
--- NOTE | ~2024-05-24 | XR_ITS ---
History: Shortness of breath and rule out osteomyelitis, pain Exams: Chest one view and right hand 3 views COMPARISON: Radiographs 03/25/2024 FINDINGS: Right side central line similar unchanged. No pneumothorax. Heart size remains prominent. Diffuse interstitial prominence with pleural disease favor interstitial pulmonary edema similar to baseline. No volume loss images on's of atelectasis. Imaging of the right hand demonstrates extensive Monckeberg calcifications suggesting diabetes. Amputation of the second and third phalanges at the level of the mid diaphysis of the middle phalanges noted. There is soft tissue prominence overlying the third remaining phalanx. Heterotopic calcification/ossification evident. There is progressive bone loss of the remaining middle phalanx since the previous exam 01/01/2024 consistent with osteomyelitis. No soft tissue air. XR/XR chest 1V IMPRESSION: 1. Findings favor interstitial pulmonary edema similar to baseline. 2. Osteomyelitis of the remaining third digit as above. Electronically signed by: Alfonso Zuleta MD 05/24/2024 06:02 PM EDT RP
[2024-05-24 15:26] VITALS: BP 112/64; PULSE 70; O2SAT 98
[2024-05-24 15:41] VITALS: BP 148/75; PULSE 61; RESP 18; TEMP 36.6; O2SAT 88; BMI 30.5
--- NOTE | 2024-05-24 16:02 | ED.EXTPRO ---
HPI - Extremity Problem General Chief complaint: Extremity Problem Stated complaint: R RING FINGER INFECTION Time Seen by Provider: 05/24/24 15:45 Source: patient Mode of arrival: EMS Limitations: language barrier (Maltese speaking only) History of Present Illness ED Provider: Dr. 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 Patient states that 3 or 4 days prior she noticed a painful blister on the radial aspect of the distal finger. She states that the blister then turned into an infection and is draining foul-smelling discharge. The patient states she was last dialyzed on 05/22/2024 and missed her dialysis today. She denied fever, chills, chest pain or cough. She states she does feel short of breath and has dyspnea on exertion but this is chronic. She denied nausea, vomiting or diarrhea. Related Data Home Medications ?Medication ?Instructions ?Recorded ?Confirmed aspirin 81 mg tablet,delayed 81 mg PO BEDTIME 06/20/21 05/24/24 release atorvastatin 80 mg tablet 80 mg PO BEDTIME 06/20/21 05/24/24 clopidogrel 75 mg tablet 75 mg PO DAILY 06/20/21 05/24/24 magnesium oxide 400 mg (241.3 mg 400 mg PO DAILY 04/20/23 05/24/24 magnesium) tablet blood sugar diagnostic (OneTouch #10 ea 05/25/23 Ultra Test strips) insulin aspart U-100 100 unit/mL See Protocol subcut NEEDED PRN 05/25/23 05/24/24 (3 mL) subcutaneous pen (Novolog bs >200 FlexPen U-100 Insulin aspart) lancets 33 gauge (OneTouch Delica #100 ea 05/25/23 Plus Lancet) pen needle, diabetic 32 gauge x #1,200 ea 05/25/23 (Pentips) melatonin 5 mg tablet 5 - 10 mg PO BEDTIME PRN Sleep 09/21/23 05/24/24 sevelamer carbonate 800 mg tablet 800 mg PO TIDWM 10/08/23 05/24/24 albuterol sulfate 90 mcg/actuation 2 inh inhalation Q6H PRN shortness 01/02/24 05/24/24 breath activated powder inhaler of breath or wheezing cholecalciferol (vitamin D3) 1,250 1,250 mcg PO WEN 01/02/24 05/24/24 mcg (50,000 unit) capsule pantoprazole 40 mg tablet,delayed 40 mg PO DAILY@0630 01/02/24 05/24/24 release insulin glargine 100 unit/mL (3 20 unit subcut DAILY 05/24/24 05/24/24 mL) subcutaneous pen (Lantus Solostar U-100 Insulin) Previous Rx's ?Medication ?Instructions ?Recorded carvedilol 12.5 mg tablet 12.5 mg PO BIDWM #60 tabs 10/11/23 sennosides 8.6 mg tablet (Natural 17.2 mg (2 x 8.6 mg) PO BEDTIME 11/22/23 Senna Laxative) constipation #60 tabs acetaminophen 325 mg capsule 650 mg (2 x 325 mg) PO Q6H PRN 03/02/24 pain #20 caps Allergies Allergy/AdvReac Type Severity Reaction Status Date / Time lobster AdvReac Hives Verified 05/24/24 15:43 Review of Systems Review of Systems: Yes all other systems are reviewed and are negative [facility] Past Medical History Medical History End stage renal disease Bilateral visual loss Open wnd toe-complicated Wound, open, hand with or without fingers with complication End stage renal disease on dialysis Congestive heart failure Hyperglycemia due to diabetes mellitus Anemia Heart failure with reduced ejection fraction Dialysis patient, noncompliant Chronic kidney disease Thrombocytopenia CKD (chronic kidney disease) stage 4, GFR 15-29 ml/min Constipation Ischemic necrosis of finger Normocytic anemia Urinary tract infection due to ESBL Klebsiella Chronic heart failure with preserved ejection fraction (HFpEF) Hypomagnesemia Acute on chronic renal failure Essential hypertension HLD (hyperlipidemia) Non-ST elevated myocardial infarction Diabetes mellitus Nonischemic cardiomyopathy Irritable bowel syndrome with diarrhea Gastroparesis GERD (gastroesophageal reflux disease) Surgical History Status post amputation of finger H/O surgical amputation of finger History of laparoscopic cholecystectomy History of intestinal surgery Hx of eye surgery History of esophagogastroduodenoscopy (EGD) Hx of colonoscopy H/O: hysterectomy Family History Family History Father Lung cancer Mother Diabetes HTN (hypertension) Heart disease Sister Diabetes Heart disease Brother Heart disease Son Diabetes Daughter Diabetes Social History Social History Household Members: Children Household Members Other:: daughter and grandson Housing: House Do you presently have visiting nurse or other home services: No (considering her grandson to be SOCK EXAMINER) Unable to assess alcohol history related to: Unable to respond and Unknown Alcohol intake: never Comment: camera in place Patient Tobacco Use Status: Never used Tobacco Smoked in Last 30 Days: No e-Cigarette/Vaping Use: Never Used Second Hand Smoke Exposure: No Advance Directives: Yes Advance Directives on File: Yes Advance Directives Date on File: 01/04/23 Do you have a plan to hurt others: No Plan Nutrition Risks: No Nutritional Risk service: No Current occupational status: disabled Physical Exam Vital Signs: Vital Signs: Last Vital Signs Temp 97.2 F 05/24/24 19:21 Pulse 63 05/24/24 21:29 Resp 16 05/24/24 21:29 BP 174/74 H 05/24/24 21:29 Pulse Ox 100 05/24/24 21:29 O2 Del Method Nasal Cannula 05/24/24 21:29 O2 Flow Rate 2 05/24/24 21:29 BMI result Body Mass Index 30.5 Vital signs did reveal low O2 saturation of 88% on room air, elevated systolic blood pressure of 148/75 Exam: General: Awake, alert in no distress Head: Normocephalic, atraumatic EENT: PERRL, Lids normal, sclera normal, conjunctiva normal, nose normal , ears normal, throat without erythema or exudates Neck: Supple, no adenopathy Lung: breath sounds symmetric, no wheezing, rales at the bases left greater than right, no rhonchi Chest: symmetric movement, nontender Heart: regular rate and rhythm, normal S1, S2 no murmurs or rubs Abdomen: soft, non-tender, nondistended, normal bowel sounds Back: no vertebral tenderness, no CVAT Extremities: Patient's right index finger reveals a localized abscess to the radial aspect of the distal phalanx, this area is tender to palpation. Patient also has amputations of fingers on the right hand, left hand and a left llitc-tza-dnyx amputation. Patient has 2+ pitting edema in her left lower extremity Neuro: Awake, alert, oriented, normal speech, cranial nerves intact, moves all extremities symmetrically Psych: Pleasant, cooperative Medications Administered Generic Name Dose Route Start Last Admin Trade Name Freq PRN Reason Stop Dose Admin Heparin Sodium (Porcine) 5,000 unit 05/24/24 20:30 05/24/24 21:41 Heparin Sodium,Porcine 5,000 Unit/Ml Vial SUBCUT 5,000 unit Q12H MATTY Administration Insulin Human Lispro 0 unit 05/24/24 21:00 05/24/24 21:41 Insulin Lispro 100 Unit/Ml 3 Ml Vial SUBCUT 2 unit QIDACHS MATTY Administration Protocol Discontinued Medications Generic Name Dose Route Start Last Admin Trade Name Freq PRN Reason Stop Dose Admin Furosemide 60 mg 05/24/24 16:49 05/24/24 18:23 Furosemide 100 Mg/10 Ml Vial IVPUSH 05/24/24 16:50 60 mg ONCE ONE Administration Protocol Piperacillin Sod/Tazobactam 50 mls @ 100 mls/hr 05/24/24 16:49 05/24/24 19:44 Sod 3.375 gm/ Sodium Chloride IV 05/24/24 17:18 Infused ONCE ONE Infusion Vancomycin HCl 1,250 mg/ 250 mls @ 166.667 mls/hr 05/24/24 20:45 05/24/24 23:31 Sodium Chloride IV 05/24/24 22:14 Infused ONCE ONE Infusion Lidocaine HCl 5 ml 05/24/24 16:01 05/24/24 18:58 Lidocaine Hcl 1 % Mpf 5 Ml Vial INFILTRATI 05/24/24 16:02 Not Given ONCE STA Medical Decision Making Medical Decision Making MDM Narrative: 69-year-old female with a history of end-stage renal disease dialyzed on Mondays, Wednesdays and Fridays,, diabetes mellitus, congestive heart failure with reduced EF, thrombocytopenia, ischemic necrosis fingers with multiple finger amputations and left esnhd-oxl-ksyd amputation, hypertension, NSTEMI, gastroparesis, GERD who presents emergency department for evaluation of an infection of her right ring (4th) finger. Patient states that 3 or 4 days prior she noticed a painful blister on the radial aspect of the distal finger. She states that the blister then turned into an infection and is draining foul-smelling discharge. She states she has had similar presentations in the past and this is lead to amputation of her fingers. She missed her Monday dialysis today. She states she was always short of breath but does not wear home oxygen. Patient's O2 saturation was 88% on room air. Patient does appear to have a felon to her right 4th finger. Differential diagnosis: ?Includes but is not limited to: Right 4th finger: Abscess, felon, osteomyelitis, ischemia Shortness of breath: Congestive heart failure, pneumonia, fluid overload secondary to missing dialysis, anemia, electrolyte abnormalities Course: 20:12 My interpretation patient's laboratory evaluation is as follows: WBC normal 6400. No anemia with an H&H of 13.3 and 42.8. Chronic thrombocytopenia with a platelet count of [id number] to her renal failure. Potassium was normal 4.2. Creatinine elevated 2.82. CRP was normal. Lactic acid was normal 1.6. ESR was normal 7.0. Troponin was elevated at 21.4 but she has had similar elevations in the past, most likely secondary to her end-stage renal disease. X-ray of the patient's fingers of the right hand revealed no osteomyelitis changes of the 4th digit but the radiologist noted osteomyelitis of the remaining 3rd digit. Chest x-ray is concerning for congestive heart failure. I did discuss the patient's presentation with the covering customer service supervisor, Dr. Pacheco who will arrange for dialysis tomorrow. I also discuss the patient's presentation over tiger text with the orthopedic physician financial planning assistant on-call, Kayley Hemphill who recommended that the wound be incised and drained. I also discuss the patient's presentation with our covering hospitalist, Dr. Stafford and the patient will be admitted to the hospitalist service for further treatment 23:45 I did incise and drain the swollen areas with the patient's finger, and only a very small amount of purulent material was expressed from the radial aspect of the finger. I did send a wound culture. The incisions were packed with quarter-inch gauze and dressed with a Kerlix dressing. Consult Healthcare Provider Management of the patient was discussed with: Hospitalist and Warehouse General Laborer (Ortho and customer service supervisor) Lab Data MDM Lab Attestation statement: I reviewed the patient's lab results. 05/24/24 17:53 05/24/24 18:32 Labs: Lab Results 05/24/24 05/24/24 05/24/24 Range/Units 17:53 17:55 18:32 WBC 6.4 (4.8-10.8) X10*3/uL RBC 5.12 D (4.20-5.50) X10*6/uL Hgb 13.3 D (12.0-16.0) g/dl Hct 42.8 D (37.0-47.0) % MCV 83.6 (80.0-98.0) fL MCH 26.0 L (27.0-33.0) pg MCHC 31.1 (31.0-35.0) g/dl RDW 14.3 (11.0-16.0) % Plt Count 116 L (160-400) X10*3/uL MPV 11.2 (9.4-12.3) fL Immature Gran % (Auto) 0.3 (0.0-0.4) % Neut % (Auto) 74.1 H (45-73) % Lymph % (Auto) 16.8 L (20-40) % [place] % (Auto) 7.2 (2-11) % Eos % (Auto) 1.1 (0-4) % Baso % (Auto) 0.5 (0-2) % Lymph # (Auto) 1.1 L (1.2-4.9) X10*3/uL [place] # (Auto) 0.5 (0.1-1.2) X10*3/uL Eos # (Auto) 0.1 (0.0-0.4) X10*3/uL Baso # (Auto) 0.0 (0.0-0.2) X10*3/uL Abs Immat Gran (auto) 0.02 (0.00-0.03) X10*3/uL Absolute Neuts (auto) 4.8 (2.0-8.3) x10*3/uL Absolute Nucleated RBC 0.000 (0.0-0.012) X10*3/uL Nucleated RBC % (auto) 0.0 (0.0-0.2) /100WBC ESR 7 (0-20) MM/HR Hold Purple Top SEE NOTE PT 14.1 H (11.1-13.3) SEC INR 1.2 H (0.9-1.1) APTT 29.1 (26.0-36.8) SEC Hold Blue Top SEE NOTE Sodium 139 (135-145) mmol/L Potassium 4.2 (3.3-5.1) mmol/L Chloride 100 (96-108) mmol/L Carbon Dioxide 29 (22-29) mmol/L Anion Gap 14 (12-20) BUN 16 (9-16) mg/dL Creatinine 2.82 H (0.5-1.4) mg/dL Estim Creat Clear Calc 14.7 Estimated GFR 17 Random Glucose 202 H (60-115) mg/dL Lactic Acid 1.6 (0.5-2.0) mmol/L Calcium 8.3 L (8.4-10.2) mg/dL Total Bilirubin 0.4 (0.0-1.0) mg/dL AST 7 (5-31) U/L ALT < 5 (0-31) U/L Alkaline Phosphatase 129 H (39-117) U/L Troponin I High Sens 21.4 H (<3.5-17.0) ng/L C-Reactive Protein Cancelled < 0.10 B-Natriuretic Peptide 9176 H (<100) pg/mL Total Protein 5.9 L (6.5-8.0) g/dL Albumin 2.6 L (3.5-5.0) g/dL Independent Interpretation I performed an independent interpretation of an: EKG Radiology Impression Discussion of test interpretation with radiology: I discussed test interpretation with the radiologist Radiologist Impression: XR chest 1V IMPRESSION: 1. Findings favor interstitial pulmonary edema similar to baseline. 2. Osteomyelitis of the remaining third digit as above. Electronically signed by: Alfonso Zuleta MD 05/24/2024 06:02 PM EDT Dictated By: Alfonso Zuleta MD XR finger RT min 2V IMPRESSION: 1. Findings favor interstitial pulmonary edema similar to baseline. 2. Osteomyelitis of the remaining third digit as above. Electronically signed by: Alfonso Zuleta MD 05/24/2024 06:02 PM EDT RP Dictated By: Alfonso Zuleta MD Procedures Procedure Narrative Procedure Narrative: Incision and drainag distal phalanx right 4th finger. I did discuss the incision and drainage procedure with the patient and she did give me informed verbal consent. Patient's finger was prepped with Betadine then anesthetized with 1% lidocaine digital block x5 cc. Using a 11. Scalpel I incised the lateral radial and ulnar aspects of the distal finger pad and only a small amount of purulent material was expressed. I did explore the incision sites with hemostats and was not able to express any more purulent material. The incisions were packed with quarter-inch gauze and a Kerlix gauze dressing was applied. Wound culture was sent. Discharge Plan Discharge Clinical Impression: CHF (congestive heart failure), Felon of finger of right hand, End stage chronic kidney disease Patient Disposition: Admitted As Inpatient
[2024-05-24 17:59] LABS: MANUAL DIFF FLAG NO
[2024-05-24 18:10] LABS: Basophils Percent Auto 0.5 % (0-2); Eosinophils Absolute Auto 0.1 X10*3/uL (0.0-0.4); Eosinophils Percent Auto 1.1 % (0-4); Hematocrit 42.8 % (37.0-47.0); Hemoglobin 13.3 g/dl (12.0-16.0); Imm Gran Abs Auto 0.02 X10*3/uL (0.00-0.03); Imm Gran Pct Auto 0.3 % (0.0-0.4); Lymphocytes Absolute Auto 1.1 X10*3/uL (1.2-4.9); Lymphocytes Percent Auto 16.8 % (20-40); Mean Corpuscular HGB Conc 31.1 g/dl (31.0-35.0); Mean Corpuscular Volume 83.6 fL (80.0-98.0); Mean Platelet Volume 11.2 fL (9.4-12.3); Monocytes Absolute Auto 0.5 X10*3/uL (0.1-1.2); Monocytes Percent Auto 7.2 % (2-11); Neutrophils Absolute Auto 4.8 x10*3/uL (2.0-8.3); Neutrophils Percent Auto 74.1 % (45-73); Platelet Count 116 X10*3/uL (160-400); Red Blood Count 5.12 X10*6/uL (4.20-5.50); Red Cell Distribution Width 14.3 % (11.0-16.0); White Blood Count 6.4 X10*3/uL (4.8-10.8)
[2024-05-24 18:11] LABS: Lactic Acid 1.6 mmol/L (0.5-2.0)
[2024-05-24 18:22] LABS: Troponin-I High Sensitivity 21.4 ng/L (<3.5-17.0)
[2024-05-24] MEDS: Furosemide 100 MG/10 ML VIAL 60 MG IVPUSH (18:23)
[2024-05-24] MEDS: Piperacillin Sodium/Tazobactam 3.375 GM in 0.9 % Sodium Chloride 50 ML IV (18:24)
[2024-05-24 18:38] LABS: INTERNATIONAL NORM RATIO 1.2 (0.9-1.1); Prothrombin Time 14.1 SEC (11.1-13.3)
[2024-05-24 18:38] LABS: B Type Natriuretic Peptide 9176 pg/mL (<100)
[2024-05-24 18:40] LABS: Erythrocyte Sedimentation Rate 7 MM/HR (0-20)
[2024-05-24 18:41] LABS: Partial Thromboplastin Time 29.1 SEC (26.0-36.8)
[2024-05-24 18:54] LABS: Alanine Aminotransferase < 5 U/L (0-31); Albumin Level 2.6 g/dL (3.5-5.0); Alkaline Phosphatase 129 U/L (39-117); Anion Gap 14 (12-20); Aspartate Amino Transferase 7 U/L (5-31); Bilirubin Total 0.4 mg/dL (0.0-1.0); Blood Urea Nitrogen 16 mg/dL (9-16); C Reactive Protein < 0.10 mg/dL (< or = 0.50); Calcium 8.3 mg/dL (8.4-10.2); Carbon Dioxide 29 mmol/L (22-29); Chloride 100 mmol/L (96-108); Creatinine Clr Calc Pharmacy 14.7; Estimated Glomerular Filt Rate 17; Glucose Random 202 mg/dL (60-115); Potassium 4.2 mmol/L (3.3-5.1); Sodium 139 mmol/L (135-145); Total Protein 5.9 g/dL (6.5-8.0)
[2024-05-24 19:21] VITALS: BP 160/66; PULSE 63; RESP 19; TEMP 36.2; O2SAT 97
--- NOTE | 2024-05-24 20:03 | MHC.EDTECH ---
Pt wearing brief and was wet. This tech and RN cleaned Pt, repositioned, purewick placed. Call peck within reach.
--- NOTE | 2024-05-24 20:16 | W.PM.DNNEP ---
Subjective Subjective Date of Service: 05/24/24 This patient was seen during dialysis. Physical Exam Vital Signs: Vital Signs: Last Vital Signs Temp 97.2 F 05/24/24 19:21 Pulse 63 05/24/24 19:21 Resp 19 05/24/24 19:21 BP 160/66 H 05/24/24 19:21 Pulse Ox 97 05/24/24 19:21 O2 Del Method Room Air 05/24/24 19:21 BMI result Body Mass Index 30.5 Assessment & Plan Assessment and plan (1) End stage renal disease: Status: Acute Plan Patient missed dialysis Currently saturating at 100% on 2 liter Potassium 4.6 plan: For dialysis tomorrow ( monday) 3.5hours Blood flow 400 Dialysate flow 600 POtassium 2K calcium 2.5 ( per protocol) Na 138 Ultrafiltration 2.5-3 liter Heparin free For hypotension use 25% albumin for systolic <90 Time Spent With Patient Time: Total time managing care of this patient today _5___ minutes. Procedures Date of Service Date of Service: 05/24/24
--- NOTE | 2024-05-24 20:19 | ECG_ITS ---
Test Reason : SOB Blood Pressure : / mmHG Vent. Rate : 063 BPM Atrial Rate : 063 BPM P-R Int : 156 ms QRS Dur : 132 ms QT Int : 494 ms P-R-T Axes : 083 -16 -76 degrees QTc Int : 505 ms Normal sinus rhythm Non-specific intra-ventricular conduction block Minimal voltage criteria for LVH, may be normal variant ( Heriberto product ) Cannot rule out Anterior infarct (cited on or before 01-MAR-2024) T wave abnormality, consider lateral ischemia Abnormal ECG When compared with ECG of 25-MAR-2024 02:31, No significant change was found Referred By: Kaushal Camara Electronically Signed By:KALANI TOLEDO
--- NOTE | 2024-05-24 20:23 | PM.IMHP ---
History of Present Illness Date of Service: 05/24/24 Chief Complaint: Dyspnea This is a 68-year-old female with pertinent history of ESRD on hemodialysis (Monday, Monday, Monday), congestive heart failure with reduced ejection fraction, insulin-dependent type 2 diabetes mellitus, mixed hyperlipidemia, hypertension, history of CVA, mood disorder, peripheral vascular disease s/p left BKA and mulitple finger amputations who presents to the emergency department for evaluation of finger infection and dyspnea. History obtained with the help of translator and interpreter. Patient states she 1st noticed redness and swelling of her right 4th finger. It has been progressive and with foul-smelling drainage. It started as a blister and then got infected. Patient also missed dialysis on the day of presentation and has been having dyspnea. Admits orthopnea. Patient denies chest discomfort, palpitations, abdominal pain, changes in urinary or bowel habits. In the emergency department, Nephrology was consulted who will dialyze the patient in a.m.. Patient also requiring 2 L supplemental oxygen. BNP found to be elevated Review of Systems Cardiovascular: Cardiovascular: Reports dyspnea Respiratory: Respiratory: Reports dyspnea Gastrointestinal: Gastrointestinal: Reports no additional gastrointestinal complaints Genitourinary: Genitourinary: Reports no additional female genitourinary complaints [facility] Medical History End stage renal disease Bilateral visual loss Open wnd toe-complicated Wound, open, hand with or without fingers with complication End stage renal disease on dialysis Congestive heart failure Hyperglycemia due to diabetes mellitus Anemia Heart failure with reduced ejection fraction Dialysis patient, noncompliant Chronic kidney disease Thrombocytopenia CKD (chronic kidney disease) stage 4, GFR 15-29 ml/min Constipation Ischemic necrosis of finger Normocytic anemia Urinary tract infection due to ESBL Klebsiella Chronic heart failure with preserved ejection fraction (HFpEF) Hypomagnesemia Acute on chronic renal failure Essential hypertension HLD (hyperlipidemia) Non-ST elevated myocardial infarction Diabetes mellitus Nonischemic cardiomyopathy Irritable bowel syndrome with diarrhea Gastroparesis GERD (gastroesophageal reflux disease) Family History Father Lung cancer Mother Diabetes HTN (hypertension) Heart disease Sister Diabetes Heart disease Brother Heart disease Son Diabetes Daughter Diabetes Surgical History Status post amputation of finger H/O surgical amputation of finger History of laparoscopic cholecystectomy History of intestinal surgery Hx of eye surgery History of esophagogastroduodenoscopy (EGD) Hx of colonoscopy H/O: hysterectomy Social History Household Members: Children Household Members Other:: daughter and grandson Housing: House Do you presently have visiting nurse or other home services: No (considering her grandson to be TECHNICAL SPEC) Unable to assess alcohol history related to: Unable to respond and Unknown Alcohol intake: never Comment: camera in place Patient Tobacco Use Status: Never used Tobacco e-Cigarette/Vaping Use: Never Used Second Hand Smoke Exposure: No Advance Directives: Yes Advance Directives on File: Yes Advance Directives Date on File: 01/04/23 service: No Current occupational status: disabled Meds Allergies Allergy/AdvReac Type Severity Reaction Status Date / Time lobster AdvReac Hives Verified 05/24/24 15:43 Home Medications ?Medication ?Instructions ?Recorded ?Confirmed ?Last Taken ?Type aspirin 81 mg tablet,delayed 81 mg PO BEDTIME 06/20/21 02/08/24 09/20/23 History release atorvastatin 80 mg tablet 80 mg PO BEDTIME 06/20/21 02/08/24 09/20/23 History clopidogrel 75 mg tablet 75 mg PO DAILY 06/20/21 02/08/24 09/20/23 History magnesium oxide 400 mg (241.3 mg 400 mg PO DAILY 04/20/23 02/08/24 09/20/23 History magnesium) tablet blood sugar diagnostic (OneTouch #10 ea 05/25/23 Unknown History Ultra Test strips) insulin aspart U-100 100 unit/mL See Protocol subcut NEEDED PRN 05/25/23 02/08/24 09/20/23 History (3 mL) subcutaneous pen (Novolog bs >200 FlexPen U-100 Insulin aspart) lancets 33 gauge (OneTouch Delica #100 ea 05/25/23 Unknown History Plus Lancet) pen needle, diabetic 32 gauge x #1,200 ea 05/25/23 Unknown History (Pentips) melatonin 5 mg tablet 5 - 10 mg PO BEDTIME PRN Sleep 09/21/23 02/08/24 09/20/23 History sevelamer carbonate 800 mg tablet 800 mg PO TIDWM 10/08/23 02/08/24 Unknown History albuterol sulfate 90 mcg/actuation 2 inh inhalation Q6H PRN shortness 01/02/24 02/08/24 Unknown History breath activated powder inhaler of breath or wheezing cholecalciferol (vitamin D3) 1,250 1,250 mcg PO QWEEK 01/02/24 02/08/24 Unknown History mcg (50,000 unit) capsule pantoprazole 40 mg tablet,delayed 40 mg PO DAILY@0630 01/02/24 02/08/24 Unknown History release Physical Exam Vital Signs and Narrative: Vital Signs: Last Vital Signs Temp 97.2 F 05/24/24 19:21 Pulse 63 05/24/24 19:21 Resp 19 05/24/24 19:21 BP 160/66 H 05/24/24 19:21 Pulse Ox 97 05/24/24 19:21 O2 Del Method Room Air 05/24/24 19:21 BMI result Body Mass Index 30.5 Elderly female lying in bed in mild distress on supplemental oxygen Neck supple Bilateral crackles present Regular rate and rhythm Abdomen soft nontender, no guarding, no rigidity, no CVA tenderness Patient is awake, alert and oriented to self, place, time and person ; no focal motor weakness Psych: Normal mood Left BKA ; hands with mulitple finger amputations ; right 4th finger with swelling, erythema, tenderness and warmth, also fluctuance seen as pictured below Skin: Other: Results Labs 05/24/24 17:53 05/24/24 18:32 Labs: Laboratory Results - last 24 hr 05/24/24 05/24/24 05/24/24 17:53 17:55 18:32 MCV 83.6 MCH 26.0 L MCHC 31.1 RDW 14.3 Plt Count 116 L MPV 11.2 Immature Gran % (Auto) 0.3 Neut % (Auto) 74.1 H Lymph % (Auto) 16.[address] [place] % (Auto) 7.2 Eos % (Auto) 1.1 Baso % (Auto) 0.5 Lymph # (Auto) 1.[address] [place] # (Auto) 0.5 Eos # (Auto) 0.1 Baso # (Auto) 0.0 Abs Immat Gran (auto) 0.02 Absolute Neuts (auto) 4.8 Absolute Nucleated RBC 0.000 Nucleated RBC % (auto) 0.0 ESR 7 Hold Purple Top SEE NOTE PT 14.1 H INR 1.2 H APTT 29.1 Hold Blue Top SEE NOTE Anion Gap 14 Estim Creat Clear Calc 14.7 Estimated GFR 17 Random Glucose 202 H Lactic Acid 1.6 Calcium 8.3 L Total Bilirubin 0.4 AST 7 ALT < 5 Alkaline Phosphatase 129 H Troponin I High Sens 21.4 H C-Reactive Protein Cancelled < 0.10 B-Natriuretic Peptide 9176 H Total Protein 5.9 L Albumin 2.6 L Imaging Radiologist's Impressions: Impressions Finger X-Ray 05/24/24 15:58 IMPRESSION: 1. Findings favor interstitial pulmonary edema similar to baseline. 2. Osteomyelitis of the remaining third digit as above. Electronically signed by: Alfonso Zuleta MD 05/24/2024 06:02 PM EDT RP Chest X-Ray 05/24/24 15:59 IMPRESSION: 1. Findings favor interstitial pulmonary edema similar to baseline. 2. Osteomyelitis of the remaining third digit as above. Electronically signed by: Alfonso Zuleta MD 05/24/2024 06:02 PM EDT RP Assessment and Plan (1) CHF (congestive heart failure): Status: Acute (2) Felon of finger of right hand: Status: Acute Plan This is a 68-year-old female with pertinent history of ESRD on hemodialysis (Monday, Monday, Monday), congestive heart failure with reduced ejection fraction, insulin-dependent type 2 diabetes mellitus, mixed hyperlipidemia, hypertension, history of CVA, mood disorder, peripheral vascular disease s/p left BKA and mulitple finger amputations who presents to the emergency department for evaluation of finger infection and dyspnea. #. Acute hypoxic resp failure due decompensated congestive heart failure with reduced ejection fraction in the setting of missed hemodialysis: Will admit patient with supplemental o2. Given IV Lasix in the ER. Nephrology consulted with plans for dialysis in a.m.. Strict I's and O's. Low-salt diet. Patient on beta-kain and ARB #. Acute right 4th digit (UE) purulent cellulitis with abscess: Will admit patient with empiric IV vancomycin. I and D to be performed in the ER. Follow wound cultures. No sepsis. Orthopedic surgery consulted from the ER, appreciate assistance. Imaging with third digit osteomyelitis, ?likely chronic #.? Insulin-dependent type 2 diabetes mellitus with hyperglycemia: Initiating Accu-Cheks with sliding scale insulin before meals and at bedtime #.? Hypertension: Continue home antihypertensives #.? History of CVA: on plavix, aspirin and high-intensity statin #. Mood disorder. Continue mood stabilizers Med rec pending DVT prophylaxis: Heparin Full code Low-salt diet Admit as inpatient and will require two night minimum hospital stay for supplemental oxygen, IV antibiotics (as above), which is not possible in a lesser acute setting. Specialist consult pending Quality Stroke Does the patient have a stroke diagnosis?: No VTE Prior VTE?: No VTE Risk Level:: Medical - moderate - high VTE Device Contraindication: Treatment Not Indicated VTE Drug Contraindication: N/A - Med Ordered
[2024-05-24 21:29] VITALS: BP 174/74; PULSE 63; RESP 16; O2SAT 100
--- NOTE | 2024-05-24 21:38 | PC.NURSE ---
delay in vaynco as there are no 250 bags in ED
[2024-05-24] MEDS: Insulin Lispro 100 UNIT/ML 3 ML VIAL SUBCUT (21:41)
[2024-05-24] MEDS: Heparin Sodium,Porcine 5,000 UNIT/ML VIAL 5000 UNIT SUBCUT (21:41)
[2024-05-24 21:44] LABS: Glucose, Whole Blood 156 mg/dL (60-115)
[2024-05-24] MEDS: vancomycin HCL 1,250 MG in 0.9 % Sodium Chloride 250 ML 166.67 MG IV (22:00)
--- NOTE | 2024-05-24 22:11 | PHA.MEDREC ---
Addendum entered by Dena Donnelly [facility] 05/24/24 22:30: Reviewed by [facility] Original Note: Pharmacy Consult ? Medication Reconciliation Pharmacy has completed the medication reconciliation. Tried talking to patient with chief customer officer (Carlos). Patient was able to confirm a few medications (Acetaminophen, Albuterol Sulfate, Baby Aspirin, and her Atorvastatin) but she started to become confused when I asked about her Novolog and Lantus Solostar insulins and stated her daughter usually helps with her medications but when she feels like it and how she wants to and doesn't seem to really know too too much but patient states her daughter is crazier then her and probably wont be much help. I used claims and what the patient was able to confirm to complete the Med Rec.
--- NOTE | 2024-05-25 | ECG_ITS ---
Test Reason : chest pain Blood Pressure : / mmHG Vent. Rate : 063 BPM Atrial Rate : 063 BPM P-R Int : 150 ms QRS Dur : 126 ms QT Int : 474 ms P-R-T Axes : 067 -03 215 degrees QTc Int : 485 ms Normal sinus rhythm Non-specific intra-ventricular conduction block Minimal voltage criteria for LVH, may be normal variant ( Heriberto product ) Cannot rule out Anterior infarct (cited on or before 01-MAR-2024) T wave abnormality, consider inferolateral ischemia Abnormal ECG When compared with ECG of 24-MAY-2024 20:43, No significant change was found Referred By: Cash Waters Electronically Signed By:KALANI TOLEDO
--- NOTE | 2024-05-25 01:05 | PC.NURSE ---
[place] speaking, comes in with R finger infection. PMH: ESRD ( dialysis M/W/F) . Missed dialysis today ( Monday), DM, CHF, ischemic necrosis finger multiple amputations, BKA, HTN, NSTEMI. Pt not on02 at home however desat today in the 80s so placed on 2L and sating 95-100. Pt will be admitted for osteomelitits of 3rd digit and IV antibiotics along will supplemental 02. IV R . forearm.
[2024-05-25 02:22] VITALS: BP 160/60; PULSE 58; RESP 20; TEMP 36.4; O2SAT 100
--- NOTE | 2024-05-25 02:39 | MHC.EDTECH ---
Pt found to be incontinent. This tech and RN cleaned Pt and another purewick was placed.
[2024-05-25 05:19] LABS: Hematocrit 43.2 % (37.0-47.0); Hemoglobin 13.4 g/dl (12.0-16.0); Mean Corpuscular Hemoglobin 26.1 pg (27.0-33.0); Mean Platelet Volume 11.3 fL (9.4-12.3); Platelet Count 133 X10*3/uL (160-400); Red Blood Count 5.14 X10*6/uL (4.20-5.50); Red Cell Distribution Width 14.3 % (11.0-16.0); White Blood Count 7.2 X10*3/uL (4.8-10.8)
[2024-05-25 05:37] LABS: Creatinine Clr Calc Pharmacy 13.7; Estimated Glomerular Filt Rate 15
[2024-05-25 05:40] LABS: Anion Gap 13 (12-20); Blood Urea Nitrogen 17 mg/dL (9-16); Calcium 8.6 mg/dL (8.4-10.2); Carbon Dioxide 31 mmol/L (22-29); Chloride 100 mmol/L (96-108); Creatinine Clr Calc Pharmacy 13.8; Estimated Glomerular Filt Rate 15; Glucose Random 72 mg/dL (60-115); Potassium 4.4 mmol/L (3.3-5.1); Sodium 140 mmol/L (135-145)
[2024-05-25 06:08] VITALS: BP 186/61; PULSE 62; RESP 16; TEMP 36.3; O2SAT 100
[2024-05-25 07:25] LABS: Glucose, Whole Blood 75 mg/dL (60-115)
--- NOTE | 2024-05-25 07:56 | PC.NURSE ---
Care of Pt assumed at change of shift. VSS and Pt is awake and eating breakfast without distress. Awaiting bed assignment.
--- NOTE | 2024-05-25 10:58 | P.CONOP_ITS ---
History of Present Illness HPI Consult date: 05/25/24 Chief complaint: dyspnea Narrative: Ms. Guerra is a 69-year-old female with a history of end-stage renal disease dialyzed on Mondays, Wednesdays and Fridays,, diabetes mellitus, congestive heart failure with reduced EF, thrombocytopenia, ischemic necrosis fingers with multiple finger amputations and left [id number] amputation, hypertension, NSTEMI, gastroparesis, GERD who presents emergency department for evaluation of an infection of her right index finger. Patient reports that 3 or 4 days prior to presenting to the ED she noticed a painful blister on the radial aspect of the distal finger. She states that the blister then turned into an infection and is draining foul-smelling discharge. An I&D was performed on the right index finger while in the ED. Upon inspection today the patient reports that the finger is less painful. Review of Systems 2 Review of Systems: Yes all other systems are reviewed and are negative PMFSH Past Medical History Medical History End stage renal disease Bilateral visual loss Open wnd toe-complicated Wound, open, hand with or without fingers with complication End stage renal disease on dialysis Congestive heart failure Hyperglycemia due to diabetes mellitus Anemia Heart failure with reduced ejection fraction Dialysis patient, noncompliant Chronic kidney disease Thrombocytopenia CKD (chronic kidney disease) stage 4, GFR 15-29 ml/min Constipation Ischemic necrosis of finger Normocytic anemia Urinary tract infection due to ESBL Klebsiella Chronic heart failure with preserved ejection fraction (HFpEF) Hypomagnesemia Acute on chronic renal failure Essential hypertension HLD (hyperlipidemia) Non-ST elevated myocardial infarction Diabetes mellitus Nonischemic cardiomyopathy Irritable bowel syndrome with diarrhea Gastroparesis GERD (gastroesophageal reflux disease) Family History Family History Father Lung cancer Mother Diabetes HTN (hypertension) Heart disease Sister Diabetes Heart disease Brother Heart disease Son Diabetes Daughter Diabetes Surgical History Surgical History Status post amputation of finger H/O surgical amputation of finger History of laparoscopic cholecystectomy History of intestinal surgery Hx of eye surgery History of esophagogastroduodenoscopy (EGD) Hx of colonoscopy H/O: hysterectomy Social History Social History Household Members: Children Household Members Other:: daughter and grandson Housing: House Do you presently have visiting nurse or other home services: No (considering her grandson to be COUNTER HAND) Unable to assess alcohol history related to: Unable to respond and Unknown Alcohol intake: never Comment: camera in place Patient Tobacco Use Status: Never used Tobacco e-Cigarette/Vaping Use: Never Used Second Hand Smoke Exposure: No Advance Directives Date on File: 01/04/23 service: No Current occupational status: disabled Meds Allergies Allergy/AdvReac Type Severity Reaction Status Date / Time lobster AdvReac Hives Verified 05/24/24 15:43 Active Medications: Current Medications Acetaminophen (Acetaminophen 325 Mg Tablet) 650 mg PO Q6H PRN PRN Reason: Pain, Mild (Pain Scale 1-3), fever or headache Albuterol Sulfate (Albuterol Sulfate 90 Mcg 8 Gm Inhaler) 2 puff INHALE Q6H PRN PRN Reason: shortness of breath or wheezing Aspirin (Aspirin Enteric Coated 81 Mg Tablet.Dr) 81 mg PO BEDTIME MATTY Atorvastatin Calcium (Atorvastatin Calcium 80 Mg Tablet) 80 mg PO BEDTIME MATTY Calcium Carbonate (Calcium Carbonate 750 Mg Tab.Chew) 750 mg PO Q4H PRN PRN Reason: Heartburn Carvedilol (Carvedilol 12.5 Mg Tablet) 12.5 mg PO BIDWM MATTY; Protocol Glucose (Glucose Gel 15 Gm Gel..Gram.) 15 gm PO Q15M PRN; Protocol PRN Reason: per Hypoglycemia Standing Ord. Heparin Sodium (Porcine) (Heparin Sodium,Porcine 5,000 Unit/Ml Vial) 5,000 unit SUBCUT Q12H [facility] Last Admin: 05/24/24 21:41 Dose: 5,000 unit Dextrose (D10) 250 mls @ 750 mls/hr IV Q15M PRN; Protocol PRN Reason: per Hypoglycemia Standing Ord. Vancomycin HCl 500 mg/ Sodium (Chloride) 110 mls @ 110 mls/hr IV MOWEFR@1800 [facility] Insulin Glargine (Insulin Glargine,Hum.Rec.Anlog 100 Unit/Ml 10 Ml Vial) 14 unit SUBCUT DAILY [facility] Insulin Human Lispro (Insulin Lispro 100 Unit/Ml 3 Ml Vial) 0 unit SUBCUT QIDACHS [facility]; Protocol Last Admin: 05/25/24 07:24 Dose: Not Given Magnesium Hydroxide (Milk Of Magnesia 30 Ml Oral.Susp) 30 ml PO DAILY PRN PRN Reason: Constipation Magnesium Oxide (Magnesium Oxide 400 Mg Tablet) 400 mg PO DAILY MATTY Melatonin (Melatonin 3 Mg Tablet) 6 mg PO BEDTIME PRN PRN Reason: Insomnia Non-Formulary Medication (Cholecalciferol (Vitamin D3)) 1,250 mcg PO WEN MATTY Omeprazole (Omeprazole 20 Mg Capsule.Dr) 20 mg PO DAILY@0630 MATTY Ondansetron HCl (Ondansetron Hcl 4 Mg/2 Ml Vial) 4 mg IVPUSH Q8H PRN PRN Reason: Nausea and Vomiting Pharmacy Consult (Consult Rx Vancomycin Dosing) 1 each MISCELLANE DAILY PRN PRN Reason: Consult order Senna (Sennosides 8.6 Mg Tablet) 17.2 mg PO BEDTIME MATTY Sevelamer Carbonate (Sevelamer Carbonate Tablet 800 Mg Tablet) 800 mg PO TIDWM [facility] Sodium Chloride (0.9 % Sodium Chloride Flush 3 Ml Syringe) 3 ml IVFLUSH QSHIFT [facility] Last Admin: 05/25/24 00:33 Dose: Not Given Home Medications ?Medication ?Instructions ?Recorded ?Confirmed ?Last Taken ?Type aspirin 81 mg tablet,delayed 81 mg PO BEDTIME 06/20/21 05/24/24 09/20/23 History release atorvastatin 80 mg tablet 80 mg PO BEDTIME 06/20/21 05/24/24 09/20/23 History clopidogrel 75 mg tablet 75 mg PO DAILY 06/20/21 05/24/24 09/20/23 History magnesium oxide 400 mg (241.3 mg 400 mg PO DAILY 04/20/23 05/24/24 09/20/23 History magnesium) tablet blood sugar diagnostic (OneTouch #10 ea 05/25/23 Unknown History Ultra Test strips) insulin aspart U-100 100 unit/mL See Protocol subcut NEEDED PRN 05/25/23 05/24/24 09/20/23 History (3 mL) subcutaneous pen (Novolog bs >200 FlexPen U-100 Insulin aspart) lancets 33 gauge (OneTouch Delreid #100 ea 05/25/23 Unknown History Plus Lancet) pen needle, diabetic 32 gauge x #1,200 ea 05/25/23 Unknown History (Pentips) melatonin 5 mg tablet 5 - 10 mg PO BEDTIME PRN Sleep 09/21/23 05/24/24 09/20/23 History sevelamer carbonate 800 mg tablet 800 mg PO TIDWM 10/08/23 05/24/24 Unknown History albuterol sulfate 90 mcg/actuation 2 inh inhalation Q6H PRN shortness 01/02/24 05/24/24 Unknown History breath activated powder inhaler of breath or wheezing cholecalciferol (vitamin D3) 1,250 1,250 mcg PO WEN 01/02/24 05/24/24 Unknown History mcg (50,000 unit) capsule pantoprazole 40 mg tablet,delayed 40 mg PO DAILY@0630 01/02/24 05/24/24 Unknown History release insulin glargine 100 unit/mL (3 20 unit subcut DAILY 05/24/24 05/24/24 Unknown History mL) subcutaneous pen (Lantus Solostar U-100 Insulin) Physical Exam 2 Vital Signs: Vital Signs: Last Vital Signs Temp 97.4 F 05/25/24 06:08 Pulse 62 05/25/24 06:08 Resp 16 05/25/24 06:08 BP 186/61 H 05/25/24 06:08 Pulse Ox 100 05/25/24 06:08 O2 Del Method Nasal Cannula 05/25/24 06:08 O2 Flow Rate 2 05/25/24 06:08 BMI result Body Mass Index 30.5 Const: General: cooperative, healthy appearing and no acute distress Resp: Effort & Inspection: normal respiratory effort and able to speak in complete sentences Cardio: Rate: regular rate Peripheral pulses: Peripheral pulses 2+ throughout GI: Palpation (GI): Soft to palpation Skin: Lesions: no lesions Rashes: no rashes Extrem: Other: Right index finger excision along the radial and ulnar aspect of the finger. No active purulent drainage noted. Able to slightly flex and extend at all IP joints. Sensation intact. Capillary refill brisk. Results Labs 05/25/24 05:05 05/25/24 05:05 Labs: Abnormal lab results 05/24/24 05/24/24 05/24/24 Range/Units 17:53 17:55 18:32 MCH 26.0 L (27.0-33.0) pg Plt Count 116 L (160-400) X10*3/uL Neut % (Auto) 74.1 H (45-73) % Lymph % (Auto) 16.8 L (20-40) % Lymph # (Auto) 1.1 L (1.2-4.9) X10*3/uL PT 14.1 H (11.1-13.3) SEC INR 1.2 H (0.9-1.1) Carbon Dioxide (22-29) mmol/L BUN (9-16) mg/dL Creatinine 2.82 H (0.5-1.4) mg/dL POC Glucose (60-115) mg/dL Random Glucose 202 H (60-115) mg/dL Calcium 8.3 L (8.4-10.2) mg/dL Alkaline Phosphatase 129 H (39-117) U/L Troponin I High Sens 21.4 H (<3.5-17.0) ng/L B-Natriuretic Peptide 9176 H (<100) pg/mL Total Protein 5.9 L (6.5-8.0) g/dL Albumin 2.6 L (3.5-5.0) g/dL 05/24/24 05/25/24 05/25/24 Range/Units 21:26 05:05 05:05 MCH 26.1 L (27.0-33.0) pg Plt Count 133 L (160-400) X10*3/uL Neut % (Auto) (45-73) % Lymph % (Auto) (20-40) % Lymph # (Auto) (1.2-4.9) X10*3/uL PT (11.1-13.3) SEC INR (0.9-1.1) Carbon Dioxide 31 H (22-29) mmol/L BUN 17 H (9-16) mg/dL Creatinine 3.01 H 3.03 H (0.5-1.4) mg/dL POC Glucose 156 H (60-115) mg/dL Random Glucose (60-115) mg/dL Calcium (8.4-10.2) mg/dL Alkaline Phosphatase (39-117) U/L Troponin I High Sens (<3.5-17.0) ng/L B-Natriuretic Peptide (<100) pg/mL Total Protein (6.5-8.0) g/dL Albumin (3.5-5.0) g/dL H & H 05/24/24 05/25/24 Range/Units 17:53 05:05 Hgb 13.3 D 13.4 (12.0-16.0) g/dl Hct 42.8 D 43.2 (37.0-47.0) % Coagulation 05/24/24 Range/Units 17:55 INR 1.2 H (0.9-1.1) All other labs normal. Assessment and Plan (1) Felon of finger of right hand: Status: Acute (2) CHF (congestive heart failure): Status: Acute (3) End stage renal disease: Status: Acute (4) Acute exacerbation of congestive heart failure: Status: Acute Plan I&D performed in the ED yesterday Dressing change performed at bedside while in dialysis Daily dressing changes as needed Continue abx per medicine recommendation No additional orthopedic intervention needed at this time Procedures Date of Service Date of Service: 05/25/24
[2024-05-25 13:04] VITALS: BP 144/60; PULSE 65; RESP 19; O2SAT 100
--- NOTE | 2024-05-25 13:06 | PC.NURSE ---
Pt returns from Dialysis at this time, hospitalist at bedside with field staff
[2024-05-25 13:08] LABS: Glucose, Whole Blood 101 mg/dL (60-115)
[2024-05-25 13:20] VITALS: BP 144/60; PULSE 66
[2024-05-25] MEDS: carvediloL 12.5 MG TABLET PO (13:20)
[2024-05-25] MEDS: Magnesium Oxide 400 MG TABLET PO (13:21)
[2024-05-25] MEDS: Heparin Sodium,Porcine 5,000 UNIT/ML VIAL 5000 UNIT SUBCUT ×2 (13:21→20:48)
[2024-05-25] MEDS: Insulin Glargine,Hum.rec.anlog 100 UNIT/ML 10 ML VIAL 14 UNIT SUBCUT (13:23)
--- NOTE | 2024-05-25 13:33 | HO.PM.IMPN ---
Subjective Subjective Date of Service: 05/25/24 Interval History: Seen and examined this morning follow up for Finger infection, missed HD had HD this am breathing better after HD Review of Systems Review of Systems: Yes all other systems are reviewed and are negative Constitutional Constitutional: Denies fever(s) Cardiovascular Cardiovascular: Denies chest pain and Denies dyspnea Respiratory Respiratory: Denies dyspnea Gastrointestinal Gastrointestinal: Denies abdominal pain Physical Exam Vital Signs: Vital Signs: Last Vital Signs Temp 97.4 F 05/25/24 06:08 Pulse 66 05/25/24 13:20 Resp 19 05/25/24 13:04 BP 144/60 H 05/25/24 13:20 Pulse Ox 100 05/25/24 13:04 O2 Del Method Room Air 05/25/24 13:04 O2 Flow Rate 2 05/25/24 06:08 BMI result Body Mass Index 30.5 Const: General: comfortable, no acute distress, alert and awake Nutritional Appearance: average body habitus Resp: Effort & Inspection: normal respiratory effort, able to speak in complete sentences, no respiratory distress and no use of accessory muscles Cardio: Rate: regular rate GI: Inspection: No distended Palpation (GI): Soft to palpation and nontender Neuro: Other: grossly nonfocal Extrem: Other: s/p left BKA, multiple amputations right hand; right fourth fingers wrapped in c/d/i bandage Objective Data Active Medications Acetaminophen (Acetaminophen 325 Mg Tablet) 650 mg PO Q6H PRN PRN Reason: Pain, Mild (Pain Scale 1-3), fever or headache Albuterol Sulfate (Albuterol Sulfate 90 Mcg 8 Gm Inhaler) 2 puff INHALE Q6H PRN PRN Reason: shortness of breath or wheezing Aspirin (Aspirin Enteric Coated 81 Mg Tablet.Dr) 81 mg PO BEDTIME MATTY Atorvastatin Calcium (Atorvastatin Calcium 80 Mg Tablet) 80 mg PO BEDTIME [facility] Calcium Carbonate (Calcium Carbonate 750 Mg Tab.Chew) 750 mg PO Q4H PRN PRN Reason: Heartburn Carvedilol (Carvedilol 12.5 Mg Tablet) 12.5 mg PO BIDWM MATTY; Protocol Last Admin: 05/25/24 13:20 Dose: 12.5 mg Documented By: AVERY Glucose (Glucose Gel 15 Gm Gel..Gram.) 15 gm PO Q15M PRN; Protocol PRN Reason: per Hypoglycemia Standing Ord. Heparin Sodium (Porcine) (Heparin Sodium,Porcine 5,000 Unit/Ml Vial) 5,000 unit SUBCUT Q12H [facility] Last Admin: 05/25/24 13:21 Dose: 5,000 unit Documented By: AVERY Dextrose (D10) 250 mls @ 750 mls/hr IV Q15M PRN; Protocol PRN Reason: per Hypoglycemia Standing Ord. Vancomycin HCl 500 mg/ Sodium (Chloride) 110 mls @ 110 mls/hr IV MOWEFR@1800 [facility] Insulin Glargine (Insulin Glargine,Hum.Rec.Anlog 100 Unit/Ml 10 Ml Vial) 14 unit SUBCUT DAILY [facility] Last Admin: 05/25/24 13:23 Dose: 14 unit Documented By: AVERY Insulin Human Lispro (Insulin Lispro 100 Unit/Ml 3 Ml Vial) 0 unit SUBCUT QIDACHS [facility]; Protocol Last Admin: 05/25/24 13:27 Dose: Not Given Documented By: AVERY Non-Admin Reason: No Insulin Coverage Magnesium Hydroxide (Milk Of Magnesia 30 Ml Oral.Susp) 30 ml PO DAILY PRN PRN Reason: Constipation Magnesium Oxide (Magnesium Oxide 400 Mg Tablet) 400 mg PO DAILY [facility] Last Admin: 05/25/24 13:21 Dose: 400 mg Documented By: AVERY Melatonin (Melatonin 3 Mg Tablet) 6 mg PO BEDTIME PRN PRN Reason: Insomnia Non-Formulary Medication (Cholecalciferol (Vitamin D3)) 1,250 mcg PO WEN [facility] Omeprazole (Omeprazole 20 Mg Capsule.Dr) 20 mg PO DAILY@0630 [facility] Ondansetron HCl (Ondansetron Hcl 4 Mg/2 Ml Vial) 4 mg IVPUSH Q8H PRN PRN Reason: Nausea and Vomiting Pharmacy Consult (Consult Rx Vancomycin Dosing) 1 each MISCELLANE DAILY PRN PRN Reason: Consult order Senna (Sennosides 8.6 Mg Tablet) 17.2 mg PO BEDTIME [facility] Sevelamer Carbonate (Sevelamer Carbonate Tablet 800 Mg Tablet) 800 mg PO TIDWM [facility] Last Admin: 05/25/24 13:20 Dose: 800 mg Documented By: AVERY Sodium Chloride (0.9 % Sodium Chloride Flush 3 Ml Syringe) 3 ml IVFLUSH QSHIFT [facility] Last Admin: 05/25/24 00:33 Dose: Not Given Documented By: STEPHY Non-Admin Reason: IV Running Labs 05/25/24 05:05 05/25/24 05:05 Labs: Laboratory Results - last 24 hr 05/24/24 05/24/24 05/24/24 17:53 17:55 18:32 MCV 83.6 MCH 26.0 L MCHC 31.1 RDW 14.3 Plt Count 116 L MPV 11.2 Immature Gran % (Auto) 0.3 Neut % (Auto) 74.1 H Lymph % (Auto) 16.8 L [place] % (Auto) 7.2 Eos % (Auto) 1.1 Baso % (Auto) 0.5 Lymph # (Auto) 1.1 L [place] # (Auto) 0.5 Eos # (Auto) 0.1 Baso # (Auto) 0.0 Abs Immat Gran (auto) 0.02 Absolute Neuts (auto) 4.8 Absolute Nucleated RBC 0.000 Nucleated RBC % (auto) 0.0 ESR 7 Hold Purple Top SEE NOTE PT 14.1 H INR 1.2 H APTT 29.1 Hold Blue Top SEE NOTE Anion Gap 14 Estim Creat Clear Calc 14.7 Estimated GFR 17 POC Glucose Random Glucose 202 H Lactic Acid 1.6 Calcium 8.3 L Total Bilirubin 0.4 AST 7 ALT < 5 Alkaline Phosphatase 129 H Troponin I High Sens 21.4 H C-Reactive Protein Cancelled < 0.10 B-Natriuretic Peptide 9176 H Total Protein 5.9 L Albumin 2.6 L 05/24/24 05/25/24 05/25/24 21:26 05:05 05:05 MCV 84.0 MCH 26.1 L MCHC 31.0 RDW 14.3 Plt Count 133 L MPV 11.3 Immature Gran % (Auto) Neut % (Auto) Lymph % (Auto) [place] % (Auto) Eos % (Auto) Baso % (Auto) Lymph # (Auto) [place] # (Auto) Eos # (Auto) Baso # (Auto) Abs Immat Gran (auto) Absolute Neuts (auto) Absolute Nucleated RBC 0.000 Nucleated RBC % (auto) 0.0 ESR Hold Purple Top PT INR APTT Hold Blue Top Anion Gap 13 Estim Creat Clear Calc 13.8 13.7 Estimated GFR 15 POC Glucose 156 H Random Glucose Lactic Acid Calcium Total Bilirubin AST ALT Alkaline Phosphatase Troponin I High Sens C-Reactive Protein B-Natriuretic Peptide Total Protein Albumin 05/25/24 05/25/24 05/25/24 05:05 07:22 13:04 MCV MCH MCHC RDW Plt Count MPV Immature Gran % (Auto) Neut % (Auto) Lymph % (Auto) [place] % (Auto) Eos % (Auto) Baso % (Auto) Lymph # (Auto) [place] # (Auto) Eos # (Auto) Baso # (Auto) Abs Immat Gran (auto) Absolute Neuts (auto) Absolute Nucleated RBC Nucleated RBC % (auto) ESR Hold Purple Top PT INR APTT Hold Blue Top Anion Gap Estim Creat Clear Calc Estimated GFR 15 POC Glucose 75 101 Random Glucose 72 Lactic Acid Calcium 8.6 Total Bilirubin AST ALT Alkaline Phosphatase Troponin I High Sens C-Reactive Protein B-Natriuretic Peptide Total Protein Albumin Microbiology Microbiology Results: Microbiology 05/24/24 23:50 Gram Stain - Final Finger Right Index Assessment and Plan (1) Felon of finger of right hand: Status: Acute Plan This is a 68-year-old female with pertinent history of ESRD on hemodialysis (Monday, Monday, Monday), congestive heart failure with reduced ejection fraction, insulin-dependent type 2 diabetes mellitus, mixed hyperlipidemia, hypertension, history of CVA, mood disorder, peripheral vascular disease s/p left BKA and mulitple finger amputations who presents to the emergency department for evaluation of finger infection and dyspnea. Acute hypoxic resp failure due decompensated HFrEF in the setting of missed hemodialysis: Given IV Lasix in the ER s/p dialysis this am breathing improved wean oxygen ESRD on HD nephrology following Acute right 4th digit (UE) purulent cellulitis with abscess: no sepsis s/p I&D in ED seen by ortho - no further intervention required continue IV vancomycin. Follow wound culture, blood cultures Imaging with third digit osteomyelitis, ?likely chronic Insulin-dependent type 2 diabetes mellitus with hyperglycemia: continue reduced dose of lantus SSI, POCs Hypertension: Continue home antihypertensives History of CVA: plavix, aspirin and high-intensity statin DVT prophylaxis: Heparin Full code Requires ongoing inpatient stay for supplemental oxygen, IV antibiotics (as above), which is not possible in a lesser acute setting. Specialist consult pending Quality Stroke Does the patient have a stroke diagnosis?: No VTE Prior VTE?: No VTE Risk Level:: Medical - moderate - high VTE Device Contraindication: Treatment Not Indicated VTE Drug Contraindication: N/A - Med Ordered
[2024-05-25] MEDS: Sevelamer Carbonate Tablet 800 MG TABLET PO ×2 (13:34→16:53)
[2024-05-25 15:47] VITALS: BP 149/77; PULSE 72; RESP 20; TEMP 36.7; O2SAT 94
[2024-05-25 16:03] LABS: Glucose, Whole Blood 212 mg/dL (60-115)
[2024-05-25 16:13] VITALS: BMI 30.5
[2024-05-25 16:26] LABS: Vancomycin Random 13.1 mcg/mL (15-20)
[2024-05-25 16:38] LABS: Glucose, Whole Blood 216 mg/dL (60-115)
[2024-05-25] MEDS: Insulin Lispro 100 UNIT/ML 3 ML VIAL SUBCUT (16:53)
[2024-05-25] MEDS: 0.9 % Sodium Chloride Flush 3 ML SYRINGE IVFLUSH ×2 (16:54→20:49)
[2024-05-25] MEDS: vancomycin HCL 500 MG in 0.9 % Sodium Chloride 100 ML 110 MG IV (16:54)
[2024-05-25 18:52] VITALS: BP 142/58; PULSE 60; RESP 20; TEMP 36.1; O2SAT 91
[2024-05-25 20:20] LABS: Glucose, Whole Blood 111 mg/dL (60-115)
[2024-05-25] MEDS: Aspirin Enteric Coated 81 MG TABLET.DR PO (20:48)
[2024-05-25] MEDS: Sennosides 8.6 MG TABLET 17.2 MG PO (20:48)
[2024-05-25] MEDS: Atorvastatin Calcium 80 MG TABLET PO (20:48)
[2024-05-25 22:25] LABS: Troponin-I High Sensitivity 22.4 ng/L (<3.5-17.0)
[2024-05-26] VITALS (7 sets, daily range): BP systolic 149–174; BP diastolic 66–88; PULSE 64–83; RESP 16–20; TEMP 35.8–37; O2SAT 92–100
[2024-05-26] MEDS: Omeprazole 20 MG CAPSULE.DR PO (05:57)
--- NOTE | 2024-05-26 07:18 | PC.NURSE ---
Overnight patient complained of chest discomfort she felt chest pressure and EKG was done along with troponin MD made aware of results no intervention was done at this time. Patient takes medication whole with thin liquids , commode at bedside. Tele in place patient on 2Ln/c she desat overnight. Patient turn and reposition in bed, dressing to finger reinforced. Patient denies pain , n/v visual impairments etc. Call peck present and bed alarm on.
[2024-05-26 07:35] LABS: Creatinine Clr Calc Pharmacy 17.2; Estimated Glomerular Filt Rate 20
[2024-05-26 07:40] LABS: Glucose, Whole Blood 63 mg/dL (60-115)
[2024-05-26] MEDS: Magnesium Oxide 400 MG TABLET PO (08:18)
[2024-05-26] MEDS: Clopidogrel Bisulfate 75 MG TABLET PO (08:18)
[2024-05-26] MEDS: Sevelamer Carbonate Tablet 800 MG TABLET PO ×3 (08:18→17:47)
[2024-05-26] MEDS: carvediloL 12.5 MG TABLET PO ×2 (08:19→17:47)
[2024-05-26] MEDS: 0.9 % Sodium Chloride Flush 3 ML SYRINGE IVFLUSH ×2 (08:22→17:48)
[2024-05-26] MEDS: Heparin Sodium,Porcine 5,000 UNIT/ML VIAL 5000 UNIT SUBCUT ×2 (08:22→20:12)
[2024-05-26] MEDS: Insulin Glargine,Hum.rec.anlog 100 UNIT/ML 10 ML VIAL 14 UNIT SUBCUT (08:24)
[2024-05-26] MEDS: Acetaminophen 325 MG TABLET 650 MG PO ×2 (09:36→17:47)
[2024-05-26 11:15] LABS: Glucose, Whole Blood 173 mg/dL (60-115)
--- NOTE | 2024-05-26 11:15 | HO.PM.IMPN ---
Subjective Subjective Date of Service: 05/26/24 Interval History: Seen and examined this morning Follow-up for finger infection/missed dialysis No overnight events History obtained with the assistance of a interpreter deaf Breathing at baseline Reporting some throbbing pain in right finger Review of Systems Review of Systems: Yes all other systems are reviewed and are negative Constitutional Constitutional: Denies fever(s) Cardiovascular Cardiovascular: Denies chest pain, Denies palpitations and Denies dyspnea Respiratory Respiratory: Denies cough and Denies dyspnea Endocrine Endocrine: Denies palpitations Physical Exam Vital Signs: Vital Signs: Last Vital Signs Temp 98.6 F 05/26/24 07:36 Pulse 66 05/26/24 07:36 Resp 18 05/26/24 07:36 BP 149/88 H 05/26/24 07:36 Pulse Ox 99 05/26/24 07:36 O2 Del Method Room Air 05/26/24 07:36 O2 Flow Rate 2 05/26/24 03:46 BMI result Body Mass Index 30.5 Const: General: comfortable, no acute distress, alert and awake Nutritional Appearance: average body habitus Resp: Effort & Inspection: normal respiratory effort, able to speak in complete sentences, no respiratory distress and no use of accessory muscles Cardio: Rate: regular rate GI: Inspection: No distended Palpation (GI): Soft to palpation and nontender Skin: Other: Neuro: Other: grossly nonfocal Extrem: Other: s/p left BKA, multiple amputations right hand; right fourth fingers wrapped in c/d/i bandage Objective Data Active Medications Acetaminophen (Acetaminophen 325 Mg Tablet) 650 mg PO Q6H PRN PRN Reason: Pain, Mild (Pain Scale 1-3), fever or headache Last Admin: 05/26/24 09:36 Dose: 650 mg Documented By: ITALO Albuterol Sulfate (Albuterol Sulfate 90 Mcg 8 Gm Inhaler) 2 puff INHALE Q6H PRN PRN Reason: shortness of breath or wheezing Aspirin (Aspirin Enteric Coated 81 Mg Tablet.Dr) 81 mg PO BEDTIME [facility] Last Admin: 05/25/24 20:48 Dose: 81 mg Documented By: FILI Atorvastatin Calcium (Atorvastatin Calcium 80 Mg Tablet) 80 mg PO BEDTIME [facility] Last Admin: 05/25/24 20:48 Dose: 80 mg Documented By: FILI Calcium Carbonate (Calcium Carbonate 750 Mg Tab.Chew) 750 mg PO Q4H PRN PRN Reason: Heartburn Carvedilol (Carvedilol 12.5 Mg Tablet) 12.5 mg PO BIDWM [facility]; Protocol Last Admin: 05/26/24 08:19 Dose: 12.5 mg Documented By: ITALO Clopidogrel Bisulfate (Clopidogrel Bisulfate 75 Mg Tablet) 75 mg PO DAILY [facility] Last Admin: 05/26/24 08:18 Dose: 75 mg Documented By: ITALO Glucose (Glucose Gel 15 Gm Gel..Gram.) 15 gm PO Q15M PRN; Protocol PRN Reason: per Hypoglycemia Standing Ord. Heparin Sodium (Porcine) (Heparin Sodium,Porcine 5,000 Unit/Ml Vial) 5,000 unit SUBCUT Q12H [facility] Last Admin: 05/26/24 08:22 Dose: 5,000 unit Documented By: ITALO Dextrose (D10) 250 mls @ 750 mls/hr IV Q15M PRN; Protocol PRN Reason: per Hypoglycemia Standing Ord. Vancomycin HCl 500 mg/ Sodium (Chloride) 110 mls @ 110 mls/hr IV MOWEFR@1800 [facility] Insulin Glargine (Insulin Glargine,Hum.Rec.Anlog 100 Unit/Ml 10 Ml Vial) 14 unit SUBCUT DAILY [facility] Last Admin: 05/26/24 08:24 Dose: 14 unit Documented By: ITALO Insulin Human Lispro (Insulin Lispro 100 Unit/Ml 3 Ml Vial) 0 unit SUBCUT QIDACHS [facility]; Protocol Last Admin: 05/26/24 07:44 Dose: Not Given Documented By: ITALO Non-Admin Reason: No Insulin Coverage Magnesium Hydroxide (Milk Of Magnesia 30 Ml Oral.Susp) 30 ml PO DAILY PRN PRN Reason: Constipation Magnesium Oxide (Magnesium Oxide 400 Mg Tablet) 400 mg PO DAILY [facility] Last Admin: 05/26/24 08:18 Dose: 400 mg Documented By: ITALO Melatonin (Melatonin 3 Mg Tablet) 6 mg PO BEDTIME PRN PRN Reason: Insomnia Omeprazole (Omeprazole 20 Mg Capsule.) 20 mg PO DAILY@0630 [facility] Last Admin: 05/26/24 05:57 Dose: 20 mg Documented By: FILI Ondansetron HCl (Ondansetron Hcl 4 Mg/2 Ml Vial) 4 mg IVPUSH Q8H PRN PRN Reason: Nausea and Vomiting Pharmacy Consult (Consult Rx Vancomycin Dosing) 1 each MISCELLANE DAILY PRN PRN Reason: Consult order Senna (Sennosides 8.6 Mg Tablet) 17.2 mg PO BEDTIME [facility] Last Admin: 05/25/24 20:48 Dose: 17.2 mg Documented By: FILI Sevelamer Carbonate (Sevelamer Carbonate Tablet 800 Mg Tablet) 800 mg PO TIDWM [facility] Last Admin: 05/26/24 08:18 Dose: 800 mg Documented By: ITALO Sodium Chloride (0.9 % Sodium Chloride Flush 3 Ml Syringe) 3 ml IVFLUSH QSHIFT [facility] Last Admin: 05/26/24 08:22 Dose: 3 ml Documented By: ITALO Labs 05/25/24 05:05 05/26/24 06:54 Labs: Laboratory Results - last 24 hr 05/25/24 05/25/24 05/25/24 13:04 15:53 16:06 Estim Creat Clear Calc Estimated GFR POC Glucose 101 212 H Troponin I High Sens Random Vancomycin 13.1 L 05/25/24 05/25/24 05/25/24 16:33 19:59 21:31 Estim Creat Clear Calc Estimated GFR POC Glucose 216 H 111 Troponin I High Sens 22.4 H Random Vancomycin 05/26/24 05/26/24 06:54 07:30 Estim Creat Clear Calc 17.2 Estimated GFR 20 POC Glucose 63 Troponin I High Sens Random Vancomycin Microbiology Microbiology Results: Microbiology 05/24/24 23:50 Gram Stain - Final Finger Right Index Routine Culture - Preliminary Culture in progress. 05/24/24 17:56 Blood Culture - Preliminary Blood - Venous No growth after 24 hours. 05/24/24 17:53 Blood Culture - Preliminary Blood - Venous No growth after 24 hours. Assessment and Plan (1) Felon of finger of right hand: Status: Acute Plan This is a 68-year-old female with pertinent history of ESRD on hemodialysis (Monday, Monday, Monday), congestive heart failure with reduced ejection fraction, insulin-dependent type 2 diabetes mellitus, mixed hyperlipidemia, hypertension, history of CVA, mood disorder, peripheral vascular disease s/p left BKA and mulitple finger amputations who presents to the emergency department for evaluation of finger infection and dyspnea. Acute hypoxic resp failure due decompensated HFrEF in the setting of missed hemodialysis: Given IV Lasix in the ER s/p dialysis 05/25 breathing improved on room air continue hemodialysis ESRD on HD nephrology following on MWF schedule Acute right 4th digit (UE) purulent cellulitis with abscess: no sepsis s/p I&D in ED seen by ortho - no further intervention required continue IV vancomycin after dialysis wound culture - gram stain polymicrobial, culture pending blood culture negative Imaging with third digit osteomyelitis, ?likely chronic Insulin-dependent type 2 diabetes mellitus with hyperglycemia: continue reduced dose of lantus SSI, POCs Hypertension: Continue home antihypertensives History of CVA: plavix, aspirin and high-intensity statin DVT prophylaxis: Heparin Full code Requires ongoing inpatient stay for IV antibiotics, wound care Quality Stroke Does the patient have a stroke diagnosis?: No VTE Prior VTE?: No VTE Risk Level:: Medical - moderate - high VTE Device Contraindication: Treatment Not Indicated VTE Drug Contraindication: N/A - Med Ordered
[2024-05-26] MEDS: Insulin Lispro 100 UNIT/ML 3 ML VIAL SUBCUT (11:40)
--- NOTE | 2024-05-26 16:07 | MHC.CM.PN ---
CM MET WITH PT WITH A [employer] PT LIVES WITH HER DAUGHTER AND GRANDSON SHE DENIES HAVING ANY SERVICES, BUT SAYS HER DAUGHTER ASSISTS PRN PT GOES TO [facility] FOR HD SHE USES A WHEEL CHAIR FOR MOBILITY HCP ON FILE PCP: DENYS [facility]ERGER IMM DELIVERED DCP: HOME RESUME FAMILY SUPPORT AND HD BLS TRANSPORT
[2024-05-26 17:04] LABS: Glucose, Whole Blood 119 mg/dL (60-115)
[2024-05-26] MEDS: Sennosides 8.6 MG TABLET 17.2 MG PO (20:11)
[2024-05-26] MEDS: Atorvastatin Calcium 80 MG TABLET PO (20:12)
[2024-05-26] MEDS: Aspirin Enteric Coated 81 MG TABLET.DR PO (20:12)
[2024-05-26 20:24] LABS: Glucose, Whole Blood 148 mg/dL (60-115)
[2024-05-26 20:55] LABS: Glucose, Whole Blood 198 mg/dL (60-115)
[2024-05-27] VITALS (8 sets, daily range): BP systolic 124–171; BP diastolic 54–79; PULSE 56–70; RESP 14–20; TEMP 36.1–37.2; O2SAT 93–97
[2024-05-27] MEDS: Albuterol/Iprat 2.5/0.5MG 3 ML AMPUL.NEB INHALE (00:55)
[2024-05-27] MEDS: Acetaminophen 325 MG TABLET 650 MG PO ×2 (01:06→21:35)
[2024-05-27] MEDS: Melatonin 3 MG TABLET 6 MG PO ×2 (01:06→21:36)
[2024-05-27] MEDS: Omeprazole 20 MG CAPSULE.DR PO (05:34)
[2024-05-27 07:10] LABS: Estimated Glomerular Filt Rate 17
[2024-05-27 07:15] LABS: Glucose, Whole Blood 73 mg/dL (60-115)
--- NOTE | 2024-05-27 08:21 | HO.PM.IMPN ---
Subjective Subjective Date of Service: 05/27/24 Interval History: Seen and examined this morning Follow-up for finger infection/missed dialysis No overnight events History obtained with the assistance of a medieval english literature professor Breathing at baseline Reporting 6/10 pain in R index finger Review of Systems Review of Systems: Yes all other systems are reviewed and are negative Constitutional Constitutional: Denies fever(s) Cardiovascular Cardiovascular: Denies chest pain, Denies palpitations and Denies dyspnea Respiratory Respiratory: Denies cough and Denies dyspnea Endocrine Endocrine: Denies palpitations Physical Exam Vital Signs: Vital Signs: Last Vital Signs Temp 97.0 F 05/27/24 07:55 Pulse 61 05/27/24 07:55 Resp 20 05/27/24 07:55 BP 171/79 H 05/27/24 07:55 Pulse Ox 97 05/27/24 07:55 O2 Del Method Nasal Cannula 05/27/24 07:55 O2 Flow Rate 1.5 05/27/24 07:55 BMI result Body Mass Index 30.5 Constitutional - Awake and Alert, No apparent distress Eyes - PERRLA, EOMI Cardiovascular - S1S2, RRR, No edema Respiratory - Normal lung expansion, Normal respiratory effort, No respiratory distress, CTA bilaterally Gastrointestinal - NT / ND; +BS; No rebound or guarding Extremities - no calf tenderness bilaterally, no swelling Skin - Warm/Dry. Maceration of the distal phalanx of the R index finger with mild local erythema, no purulent drainage Neurological - Alert & oriented x3 Psychological - Appropriate affect Objective Data Active Medications Acetaminophen (Acetaminophen 325 Mg Tablet) 650 mg PO Q6H PRN PRN Reason: Pain, Mild (Pain Scale 1-3), fever or headache Last Admin: 05/27/24 01:06 Dose: 650 mg Documented By: SHENA Albuterol Sulfate (Albuterol Sulfate 90 Mcg 8 Gm Inhaler) 2 puff INHALE Q6H PRN PRN Reason: shortness of breath or wheezing Albuterol/Ipratropium (Albuterol/Iprat 2.5/0.5mg 3 Ml Ampul.Neb) 3 ml INHALE RQ4H WHILE AWAKE PRN PRN Reason: sob Last Admin: 05/27/24 00:55 Dose: 3 ml Documented By: ALPHONSO Aspirin (Aspirin Enteric Coated 81 Mg Tablet.) 81 mg PO BEDTIME MATTY Last Admin: 05/26/24 20:12 Dose: 81 mg Documented By: KRYSTYNA Atorvastatin Calcium (Atorvastatin Calcium 80 Mg Tablet) 80 mg PO BEDTIME [facility] Last Admin: 05/26/24 20:12 Dose: 80 mg Documented By: KRYSTYNA Calcium Carbonate (Calcium Carbonate 750 Mg Tab.Chew) 750 mg PO Q4H PRN PRN Reason: Heartburn Carvedilol (Carvedilol 12.5 Mg Tablet) 12.5 mg PO BIDWM [facility]; Protocol Last Admin: 05/26/24 17:47 Dose: 12.5 mg Documented By: ITALO Clopidogrel Bisulfate (Clopidogrel Bisulfate 75 Mg Tablet) 75 mg PO DAILY [facility] Last Admin: 05/26/24 08:18 Dose: 75 mg Documented By: ITALO Glucose (Glucose Gel 15 Gm Gel..Gram.) 15 gm PO Q15M PRN; Protocol PRN Reason: per Hypoglycemia Standing Ord. Heparin Sodium (Porcine) (Heparin Sodium,Porcine 5,000 Unit/Ml Vial) 5,000 unit SUBCUT Q12H [facility] Last Admin: 05/26/24 20:12 Dose: 5,000 unit Documented By: KRYSTYNA Dextrose (D10) 250 mls @ 750 mls/hr IV Q15M PRN; Protocol PRN Reason: per Hypoglycemia Standing Ord. Vancomycin HCl 500 mg/ Sodium (Chloride) 110 mls @ 110 mls/hr IV MOWEFR@1800 [facility] Insulin Glargine (Insulin Glargine,Hum.Rec.Anlog 100 Unit/Ml 10 Ml Vial) 14 unit SUBCUT DAILY [facility] Last Admin: 05/26/24 08:24 Dose: 14 unit Documented By: ITALO Insulin Human Lispro (Insulin Lispro 100 Unit/Ml 3 Ml Vial) 0 unit SUBCUT QIDACHS [facility]; Protocol Last Admin: 05/27/24 07:55 Dose: Not Given Documented By: LANE Non-Admin Reason: No Insulin Coverage Magnesium Hydroxide (Milk Of Magnesia 30 Ml Oral.Susp) 30 ml PO DAILY PRN PRN Reason: Constipation Magnesium Oxide (Magnesium Oxide 400 Mg Tablet) 400 mg PO DAILY [facility] Last Admin: 05/26/24 08:18 Dose: 400 mg Documented By: ITALO Melatonin (Melatonin 3 Mg Tablet) 6 mg PO BEDTIME PRN PRN Reason: Insomnia Last Admin: 05/27/24 01:06 Dose: 6 mg Documented By: SHENA Omeprazole (Omeprazole 20 Mg Capsule.) 20 mg PO DAILY@0630 [facility] Last Admin: 05/27/24 05:34 Dose: 20 mg Documented By: SHENA Ondansetron HCl (Ondansetron Hcl 4 Mg/2 Ml Vial) 4 mg IVPUSH Q8H PRN PRN Reason: Nausea and Vomiting Pharmacy Consult (Consult Rx Vancomycin Dosing) 1 each MISCELLANE DAILY PRN PRN Reason: Consult order Senna (Sennosides 8.6 Mg Tablet) 17.2 mg PO BEDTIME [facility] Last Admin: 05/26/24 20:11 Dose: 17.2 mg Documented By: KRYSTYNA Sevelamer Carbonate (Sevelamer Carbonate Tablet 800 Mg Tablet) 800 mg PO TIDWM [facility] Last Admin: 05/26/24 17:47 Dose: 800 mg Documented By: ITALO Sodium Chloride (0.9 % Sodium Chloride Flush 3 Ml Syringe) 3 ml IVFLUSH QSHIFT [facility] Last Admin: 05/27/24 00:01 Dose: Not Given Documented By: SHENA Non-Admin Reason: No Access Labs 05/25/24 05:05 05/27/24 06:50 Labs: Laboratory Results - last 24 hr 05/26/24 05/26/24 05/26/24 11:11 17:00 20:19 Estim Creat Clear Calc Estimated GFR POC Glucose 173 H 119 H 148 H 05/26/24 05/27/24 05/27/24 20:51 06:50 07:11 Estim Creat Clear Calc 15.0 Estimated GFR 17 POC Glucose 198 H 73 Microbiology Microbiology Results: Microbiology 05/24/24 17:56 Blood Culture - Preliminary Blood - Venous No growth after 48 hours. 05/24/24 17:53 Blood Culture - Preliminary Blood - Venous No growth after 48 hours. 05/24/24 23:50 Gram Stain - Final Finger Right Index Routine Culture - Preliminary Culture in progress. Assessment and Plan (1) Susanneon of finger of right hand: Status: Acute Plan This is a 68-year-old female with pertinent history of ESRD on hemodialysis (Monday, Monday, Monday), congestive heart failure with reduced ejection fraction, insulin-dependent type 2 diabetes mellitus, mixed hyperlipidemia, hypertension, history of CVA, mood disorder, peripheral vascular disease s/p left BKA and mulitple finger amputations who presents to the emergency department for evaluation of finger infection and dyspnea. Acute hypoxic resp failure due decompensated HFrEF in the setting of missed hemodialysis: Given IV Lasix in the ER s/p dialysis 05/25 breathing improved on room air continue hemodialysis ESRD on HD nephrology following on MWF schedule Acute right 4th digit (UE) purulent cellulitis with abscess: no sepsis s/p I&D in ED seen by ortho - no further intervention required continue IV vancomycin after dialysis wound culture - prelim culture with staph aureus and strep viridens, final cultures pending blood culture negative Imaging with third digit osteomyelitis, ?likely chronic Insulin-dependent type 2 diabetes mellitus with hyperglycemia: continue reduced dose of lantus SSI, POCs Hypertension: Continue home antihypertensives History of CVA: plavix, aspirin and high-intensity statin DVT prophylaxis: Heparin Full code Requires ongoing inpatient stay for IV antibiotics, wound care, await final cultures and dc on abx Quality Stroke Does the patient have a stroke diagnosis?: No VTE Prior VTE?: No VTE Risk Level:: Medical - moderate - high VTE Device Contraindication: Treatment Not Indicated VTE Drug Contraindication: N/A - Med Ordered
[2024-05-27] MEDS: Magnesium Oxide 400 MG TABLET PO (09:25)
[2024-05-27] MEDS: Sevelamer Carbonate Tablet 800 MG TABLET PO ×2 (09:25→17:19)
[2024-05-27] MEDS: Clopidogrel Bisulfate 75 MG TABLET PO (09:25)
[2024-05-27] MEDS: Insulin Glargine,Hum.rec.anlog 100 UNIT/ML 10 ML VIAL 14 UNIT SUBCUT (09:26)
[2024-05-27] MEDS: carvediloL 12.5 MG TABLET PO ×2 (09:30→17:26)
--- NOTE | 2024-05-27 09:32 | P.PNOP_ITS ---
Subjective Subjective Date of Service: 05/27/24 Interval history: No dressing over right index finger. Patient is resting in bed comfortably. No overnight events. Pain is managed. No additional complaints. Physical Exam Vital Signs: Vital Signs: Last Vital Signs Temp 97.0 F 05/27/24 07:55 Pulse 61 05/27/24 07:55 Resp 20 05/27/24 07:55 BP 171/79 H 05/27/24 07:55 Pulse Ox 97 05/27/24 07:55 O2 Del Method Nasal Cannula 05/27/24 07:55 O2 Flow Rate 1.5 05/27/24 07:55 BMI result Body Mass Index 30.5 Const: General: cooperative, healthy appearing and no acute distress Resp: Effort & Inspection: normal respiratory effort and able to speak in com plete sentences Cardio: Rate: regular rate Peripheral pulses: Peripheral pulses 2+ throughout GI: Palpation (GI): Soft to palpation Skin: Lesions: no lesions Rashes: no rashes Extrem: Other: Right index finger excision along the radial and ulnar aspect of the finger. No active purulent drainage noted. Able to slightly flex and extend at all IP joints. Sensation intact. Capillary refill brisk. Procedures Date of Service Date of Service: 05/27/24 Progress Note: A&P Assessment and plan (1) End stage chronic kidney disease: Status: Acute (2) Felon of finger of right hand: Status: Acute (3) CHF (congestive heart failure): Status: Acute (4) End stage renal disease: Status: Acute (5) Status post amputation of finger: Status: Inactive Plan Continue pain mgmnt as appropriate Dressing placed - Keep bandages c/d/i. Elevate throughout the day Continue IV abx Dispo planning-Pain mgmnt, IV abx, no additional orthopeidc intervention needed at this time, signing off. Time Spent With Patient Time: Total time managing care of this patient today ____ minutes. Quality Stroke Does the patient have a stroke diagnosis?: No VTE Prior VTE?: No VTE Risk Level:: Medical - moderate - high VTE Device Contraindication: Treatment Not Indicated VTE Drug Contraindication: N/A - Med Ordered
[2024-05-27 11:20] LABS: Glucose, Whole Blood 123 mg/dL (60-115)
--- NOTE | 2024-05-27 11:45 | MHC.CM.PN ---
EMR REVIEWED, PLAN FOR HD TODAY, FINGER CULTURES PENDING, ANTIC PT WILL DC HOME W/RESUMP OF OUPT HD, FAMILY SUPPORT AND WILL NEED [facility] TRANSPORT HOME.
--- NOTE | 2024-05-27 12:54 | P.PNNP_ITS ---
Subjective Subjective Date of Service: 05/27/24 Interval history: seen and examined events noted Physical Exam 2 Vital Signs: Vital Signs: Last Vital Signs Temp 97.0 F 05/27/24 07:55 Pulse 65 05/27/24 09:30 Resp 20 05/27/24 07:55 BP 150/75 H 05/27/24 09:30 Pulse Ox 97 05/27/24 07:55 O2 Del Method Nasal Cannula 05/27/24 07:55 O2 Flow Rate 1.5 05/27/24 07:55 BMI result Body Mass Index 30.5 Const: General: cooperative, healthy appearing, comfortable, no acute distress, alert and awake Nutritional Appearance: average body habitus Resp: Effort & Inspection: normal respiratory effort, able to speak in complete sentences, no respiratory distress and no use of accessory muscles Cardio: Rate: regular rate Peripheral pulses: Peripheral pulses 2+ throughout GI: Inspection: No distended Palpation (GI): Soft to palpation and nontender Skin: Other: Lesions: no lesions Rashes: no rashes Neuro: Other: grossly nonfocal Extrem: Other: Right index finger excision along the radial and ulnar aspect of the finger. No active purulent drainage noted. Able to slightly flex and extend at all IP joints. Sensation intact. Capillary refill brisk. Objective Data Labs 05/25/24 05:05 05/27/24 06:50 Labs: Laboratory Results - last 24 hr 05/26/24 05/26/24 05/26/24 17:00 20:19 20:51 Creatinine Estim Creat Clear Calc Estimated GFR POC Glucose 119 H 148 H 198 H 05/27/24 05/27/24 05/27/24 06:50 07:11 11:16 Creatinine 2.77 H Estim Creat Clear Calc 15.0 Estimated GFR 17 POC Glucose 73 123 H Microbiology Microbiology Results: Microbiology 05/24/24 23:50 Finger Right Index Gram Stain - Final 05/24/24 23:50 Finger Right Index Routine Culture - Preliminary Staphylococcus aureus Viridans streptococcus group 05/24/24 17:56 Blood - Venous Blood Culture - Preliminary No growth after 48 hours. 05/24/24 17:53 Blood - Venous Blood Culture - Preliminary No growth after 48 hours. Procedures Date of Service Date of Service: 05/27/24 Assessment & Plan Assessment and plan (1) End stage renal disease: Status: Acute Plan ESRD CHF: resolved Nephrogenic Anemia REC: cont HD 3x/wk; cont EPO; d/c planning Time Spent With Patient Time: Total time managing care of this patient today ____ minutes. Progress Note: Quality Stroke Does the patient have a stroke diagnosis?: No
[2024-05-27 16:37] LABS: Vancomycin Random 11.6 mcg/mL (15-20)
[2024-05-27 17:02] LABS: Glucose, Whole Blood 141 mg/dL (60-115)
[2024-05-27 20:48] LABS: Glucose, Whole Blood 182 mg/dL (60-115)
[2024-05-27] MEDS: Heparin Sodium,Porcine 5,000 UNIT/ML VIAL 5000 UNIT SUBCUT (21:34)
[2024-05-27] MEDS: Insulin Lispro 100 UNIT/ML 3 ML VIAL SUBCUT (21:34)
[2024-05-27] MEDS: Aspirin Enteric Coated 81 MG TABLET.DR PO (21:35)
[2024-05-27] MEDS: Sennosides 8.6 MG TABLET 17.2 MG PO (21:35)
[2024-05-27] MEDS: Atorvastatin Calcium 80 MG TABLET PO (21:35)
[2024-05-28] VITALS: BP 114/61; PULSE 58; RESP 20; TEMP 36; O2SAT 95
[2024-05-28 03:47] VITALS: BP 169/82; PULSE 59; RESP 20; TEMP 36.1; O2SAT 97
[2024-05-28] MEDS: Omeprazole 20 MG CAPSULE.DR PO (06:25)
[2024-05-28 06:57] LABS: Anion Gap 13 (12-20); Blood Urea Nitrogen 16 mg/dL (9-16); Calcium 8.5 mg/dL (8.4-10.2); Carbon Dioxide 22 mmol/L (22-29); Chloride 104 mmol/L (96-108); Creatinine Clr Calc Pharmacy 18.1; Estimated Glomerular Filt Rate 21; Glucose Random 60 mg/dL (60-115); Sodium 135 mmol/L (135-145)
[2024-05-28 07:11] VITALS: BP 152/70; PULSE 56; RESP 17; TEMP 36.3; O2SAT 97
[2024-05-28] MEDS: Glucose Gel 15 GM GEL..GRAM. PO (07:20)
--- NOTE | 2024-05-28 07:25 | HO.PM.IMPN ---
Subjective Subjective Date of Service: 05/28/24 Physical Exam Vital Signs: Vital Signs: Last Vital Signs Temp 97.4 F 05/28/24 07:11 Pulse 56 05/28/24 07:11 Resp 17 05/28/24 07:11 BP 152/70 H 05/28/24 07:11 Pulse Ox 97 05/28/24 07:11 O2 Del Method Nasal Cannula 05/28/24 07:11 O2 Flow Rate 2 05/28/24 07:11 BMI result Body Mass Index 30.5 Objective Data Active Medications Acetaminophen (Acetaminophen 325 Mg Tablet) 650 mg PO Q6H PRN PRN Reason: Pain, Mild (Pain Scale 1-3), fever or headache Last Admin: 05/27/24 21:35 Dose: 650 mg Documented By: ISAAC Albuterol Sulfate (Albuterol Sulfate 90 Mcg 8 Gm Inhaler) 2 puff INHALE Q6H PRN PRN Reason: shortness of breath or wheezing Albuterol/Ipratropium (Albuterol/Iprat 2.5/0.5mg 3 Ml Ampul.Neb) 3 ml INHALE RQ4H WHILE AWAKE PRN PRN Reason: sob Last Admin: 05/27/24 00:55 Dose: 3 ml Documented By: ALPHONSO Aspirin (Aspirin Enteric Coated 81 Mg Tablet.Dr) 81 mg PO BEDTIME [facility] Last Admin: 05/27/24 21:35 Dose: 81 mg Documented By: ISAAC Atorvastatin Calcium (Atorvastatin Calcium 80 Mg Tablet) 80 mg PO BEDTIME [facility] Last Admin: 05/27/24 21:35 Dose: 80 mg Documented By: ISAAC Calcium Carbonate (Calcium Carbonate 750 Mg Tab.Chew) 750 mg PO Q4H PRN PRN Reason: Heartburn Carvedilol (Carvedilol 12.5 Mg Tablet) 12.5 mg PO BIDWM [facility]; Protocol Last Admin: 05/27/24 17:26 Dose: 12.5 mg Documented By: LANE Clopidogrel Bisulfate (Clopidogrel Bisulfate 75 Mg Tablet) 75 mg PO DAILY [facility] Last Admin: 05/27/24 09:25 Dose: 75 mg Documented By: LANE Glucose (Glucose Gel 15 Gm Gel..Gram.) 15 gm PO Q15M PRN; Protocol PRN Reason: per Hypoglycemia Standing Ord. Heparin Sodium (Porcine) (Heparin Sodium,Porcine 5,000 Unit/Ml Vial) 5,000 unit SUBCUT Q12H [facility] Last Admin: 05/27/24 21:34 Dose: 5,000 unit Documented By: ISAAC Dextrose (D10) 250 mls @ 750 mls/hr IV Q15M PRN; Protocol PRN Reason: per Hypoglycemia Standing Ord. Vancomycin HCl 500 mg/ Sodium (Chloride) 110 mls @ 110 mls/hr IV MOWEFR@1800 [facility] Insulin Glargine (Insulin Glargine,Hum.Rec.Anlog 100 Unit/Ml 10 Ml Vial) 14 unit SUBCUT DAILY [facility] Last Admin: 05/27/24 09:26 Dose: 14 unit Documented By: LANE Insulin Human Lispro (Insulin Lispro 100 Unit/Ml 3 Ml Vial) 0 unit SUBCUT QIDACHS [facility]; Protocol Last Admin: 05/27/24 21:34 Dose: 2 unit Documented By: ISAAC Magnesium Hydroxide (Milk Of Magnesia 30 Ml Oral.Susp) 30 ml PO DAILY PRN PRN Reason: Constipation Magnesium Oxide (Magnesium Oxide 400 Mg Tablet) 400 mg PO DAILY [facility] Last Admin: 05/27/24 09:25 Dose: 400 mg Documented By: LANE Melatonin (Melatonin 3 Mg Tablet) 6 mg PO BEDTIME PRN PRN Reason: Insomnia Last Admin: 05/27/24 21:36 Dose: 6 mg Documented By: ISAAC Omeprazole (Omeprazole 20 Mg Capsule.) 20 mg PO DAILY@0630 [facility] Last Admin: 05/28/24 06:25 Dose: 20 mg Documented By: SHENA Ondansetron HCl (Ondansetron Hcl 4 Mg/2 Ml Vial) 4 mg IVPUSH Q8H PRN PRN Reason: Nausea and Vomiting Pharmacy Consult (Consult Rx Vancomycin Dosing) 1 each MISCELLANE DAILY PRN PRN Reason: Consult order Senna (Sennosides 8.6 Mg Tablet) 17.2 mg PO BEDTIME [facility] Last Admin: 05/27/24 21:35 Dose: 17.2 mg Documented By: ISAAC Sevelamer Carbonate (Sevelamer Carbonate Tablet 800 Mg Tablet) 800 mg PO TIDWM [facility] Last Admin: 05/27/24 17:19 Dose: 800 mg Documented By: LANE Sodium Chloride (0.9 % Sodium Chloride Flush 3 Ml Syringe) 3 ml IVFLUSH QSHIFT MATTY Last Admin: 05/28/24 00:10 Dose: Not Given Documented By: SHENA Non-Admin Reason: No Access Labs 05/25/24 05:05 05/28/24 06:17 Labs: Laboratory Results - last 24 hr 05/27/24 05/27/24 05/27/24 11:16 15:13 16:35 Hold Purple Top Anion Gap Estim Creat Clear Calc Estimated GFR POC Glucose 123 H 141 H Random Glucose Calcium Random Vancomycin 11.6 L 05/27/24 05/28/24 20:35 06:17 Hold Purple Top SEE NOTE Anion Gap 13 Estim Creat Clear Calc 18.1 Estimated GFR 21 POC Glucose 182 H Random Glucose 60 Calcium 8.5 Random Vancomycin Microbiology Microbiology Results: Microbiology 05/24/24 23:50 Gram Stain - Final Finger Right Index Routine Culture - Preliminary Staphylococcus aureus Viridans streptococcus group Quality Stroke Does the patient have a stroke diagnosis?: No VTE Prior VTE?: No VTE Risk Level:: Medical - moderate - high VTE Device Contraindication: Treatment Not Indicated VTE Drug Contraindication: N/A - Med Ordered
[2024-05-28 07:34] LABS: Glucose, Whole Blood 54 mg/dL (60-115)
[2024-05-28 07:40] LABS: Glucose, Whole Blood 67 mg/dL (60-115)
[2024-05-28 09:30] LABS: Glucose, Whole Blood 178 mg/dL (60-115)
--- NOTE | 2024-05-28 10:42 | PM.DS ---
DS: Providers Provider Date of Service: 05/28/24 Date of admission: 05/24/24 20:22 Date of discharge: 05/28/24 Primary care physician: Alexys Avila MD Attending physician on admission: Leopoldo Stafford Consults: 05/24/24 20:04 Consult to Nephrology Stat Consulting Provider: Haleigh Pacheco Reason for consultation: Missed dialysis, hypoxia, CHF, 4th finger felon Has provider been notified: Yes 05/24/24 20:46 Consult to Orthopedics Routine Consulting Provider: [facility] Reason for consultation: Right 4th finger infection possible felon Has provider been notified: Yes 05/26/24 11:27 Consult to Wound Care Routine Reason for consultation: right 4th finger infection Attending physician on discharge: Constantino Feliz Discharging clinician: Dalia Klein DS: Diagnosis Discharge Diagnosis (1) Felon of finger of right hand: Status: Acute DS: Summary Hospital Course Hospital Course: HPI on admission by Dr Stafford 05/24: Chief Complaint: Dyspnea This is a 68-year-old female with pertinent history of ESRD on hemodialysis (Monday, Monday, Monday), congestive heart failure with reduced ejection fraction, insulin-dependent type 2 diabetes mellitus, mixed hyperlipidemia, hypertension, history of CVA, mood disorder, peripheral vascular disease s/p left BKA and mulitple finger amputations who presents to the emergency department for evaluation of finger infection and dyspnea. History obtained with the help of foreign language interpreter. Patient states she 1st noticed redness and swelling of her right 4th finger. It has been progressive and with foul-smelling drainage. It started as a blister and then got infected. Patient also missed dialysis on the day of presentation and has been having dyspnea. Admits orthopnea. Patient denies chest discomfort, palpitations, abdominal pain, changes in urinary or bowel habits. In the emergency department, Nephrology was consulted who will dialyze the patient in a.m.. Patient also requiring 2 L supplemental oxygen. BNP found to be elevated Hospital course: 69 year old female admitted to med/[facility] due to acute hypoxemic respiratory failure due to decompensated heart failure with reduced ejection fraction in the setting of missed hemodialysis session. She did require IV Lasix in the ED and resume dialysis on 05/25 with marked improvement of symptoms. She was weaned from supplemental O2, followed by Nephrology and continued on HD on MWF schedule. She was also noted to have acute filling of the right 4th digit and underwent I and D in the ED. wound culture collected and ultimately grew MRSA and strep viridans sensitive to clindamycin and vancomycin. Blood cultures were negative. She was treated with IV vancomycin following dialysis sessions and should continue on 500 mg of IV vancomycin following HD on MWF on outpatient basis x4 sessions. Discussed with Dr. Chao who will arrange this outpatient. There was no evidence of sepsis/severe sepsis during admission. There was evidence of probable chronic osteomyelitis of the right 3rd digit, but no acute osseous abnormality of the 4th digit. For her diabetes, she was continued on reduced dose of Lantus, sliding scale insulin. She did experience a single episode of hyperglycemia and Lantus was reduced to 10 units. She was otherwise noted to be borderline hyperglycemic. She should continue home dose of insulin on discharge. Continued on carvedilol for hypertension, pantoprazole for GERD, DAPT and statin given history of stroke. On discharge creat 2.29, consistent with baseline. Will continue HD as scheduled on [facility]. Follow up with PCP. Status at Discharge Functional status at discharge: wheelchair bound Overall status at discharge: patient is progressing back to baseline Time Attestation Discharge Coordination Time (in mins): 40 Quality: Safe Use of Opioids Does Pt have an Active Cancer Diagnosis on the Problem List?: No Quality: Stroke Does the patient have a stroke diagnosis?: No Physical Exam Vital Signs: Vital Signs: Last Vital Signs Temp 97.4 F 05/28/24 07:11 Pulse 56 05/28/24 07:11 Resp 17 05/28/24 07:11 BP 152/70 H 05/28/24 07:11 Pulse Ox 97 05/28/24 07:11 O2 Del Method Nasal Cannula 05/28/24 07:11 O2 Flow Rate 2 05/28/24 07:11 BMI result Body Mass Index 30.5 DS: Data Data Completed and Pending Completed studies during hospitalization [Text1]: Procedures Detachment at Left Index Finger, Mid, Open Approach (09/15/22) Dilation of Esophagus, Via Natural or Artificial Opening Endoscopic (01/31/22) Dilation of Upper Esophagus, Via Natural or Artificial Opening Endoscopic (08/16/21) Fluoroscopy of Superior Vena Cava using Low Osmolar Contrast, Guidance (12/27/22) Insertion of Infusion Device into Superior Vena Cava, Percutaneous Approach (12/27/22) Introduction of Other Thrombolytic into Peripheral Vein, Percutaneous Approach (06/05/21) Performance of Urinary Filtration, Intermittent, Less than 6 Hours Per Day (02/07/24) Transfusion of Nonautologous Red Blood Cells into Peripheral Vein, Percutaneous Approach (12/27/22) Labs on day of discharge: Laboratory Results - last 24 hr 05/27/24 05/27/24 05/27/24 11:16 15:13 16:35 Hold Purple Top Sodium Potassium Chloride Carbon Dioxide Anion Gap BUN Creatinine Estim Creat Clear Calc Estimated GFR POC Glucose 123 H 141 H Random Glucose Calcium Random Vancomycin 11.6 L 05/27/24 05/28/24 05/28/24 20:35 06:17 07:14 Hold Purple Top SEE NOTE Sodium 135 Potassium 4.0 Chloride 104 Carbon Dioxide 22 Anion Gap 13 BUN 16 Creatinine 2.29 H Estim Creat Clear Calc 18.1 Estimated GFR 21 POC Glucose 182 H 54 L* Random Glucose 60 Calcium 8.5 Random Vancomycin 05/28/24 05/28/24 07:36 09:27 Hold Purple Top Sodium Potassium Chloride Carbon Dioxide Anion Gap BUN Creatinine Estim Creat Clear Calc Estimated GFR POC Glucose 67 178 H Random Glucose Calcium Random Vancomycin Preliminary micro results at discharge 05/24/24 17:56 Blood Culture - Preliminary Blood - Venous No growth after 48 hours. 05/24/24 17:53 Blood Culture - Preliminary Blood - Venous No growth after 48 hours. Discharge Plan Discharge Anticipated Discharge Date/Time: 05/28/24 10:08 Patient Disposition: Home, Self-Care Discharge Diagnosis: Felon of R 4th fingertip, MRSA Referrals: Alexys Avila MD [Primary Care Provider] - 1 Week Discharge Medications: New vancomycin in 0.9 % sodium chl 500 mg/100 mL piggyback 500 mg IV .MWF Rx Instructions: WITH hd Continued atorvastatin 80 mg tablet 80 mg PO BEDTIME clopidogrel 75 mg tablet 75 mg PO DAILY aspirin 81 mg tablet,delayed release (DR/EC) 81 mg PO BEDTIME magnesium oxide 400 mg (241.3 mg magnesium) tablet 400 mg PO DAILY sevelamer carbonate 800 mg tablet 800 mg PO TIDWM carvedilol 12.5 mg Tablet 12.5 mg PO BIDWM Qty: 60 1RF Protocol: Hold for SBP/HR < HOLD for SBP < : 90 HOLD for HR < : 60 acetaminophen 325 mg capsule 650 mg PO Q6H PRN (Reason: pain) Qty: 20 0RF melatonin 5 mg tablet 5 - 10 mg PO BEDTIME PRN (Reason: Sleep) cholecalciferol (vitamin D3) 1,250 mcg (50,000 unit) capsule 1,250 mcg PO WEN pantoprazole 40 mg tablet,delayed release (DR/EC) 40 mg PO DAILY@0630 Rx Instructions: take one tablet half an hour before breakfast albuterol sulfate 90 mcg/actuation aerosol powdr breath activated 2 inh inhalation Q6H PRN (Reason: shortness of breath or wheezing) insulin glargine [Lantus Solostar U-100 Insulin] 100 unit/mL (3 mL) insulin pen 20 unit subcut DAILY sennosides [Natural Senna Laxative] 8.6 mg tablet 17.2 mg PO BEDTIME Qty: 60 3RF (DME) lancets [OneTouch Delica Plus Lancet] 33 gauge misc See Rx Instructions .ROUTE TID Qty: 100 Rx Instructions: As directed (DME) pen needle, diabetic [Pentips] 32 gauge x 5/32 needle See Rx Instructions .ROUTE DIRECTED Qty: 1200 Rx Instructions: As directed (DME) OneTouch Ultra Test Strip See Rx Instructions .ROUTE TID Qty: 10 Rx Instructions: As directed insulin aspart U-100 [Novolog FlexPen U-100 Insulin] 100 unit/mL (3 mL) insulin pen See Protocol subcut NEEDED PRN (Reason: bs >200) Protocol: Insulin Correction Scale Less than or equal to 110 ---- Give (units): 0 111 to 150 Give (units): 0 151 to 200 Give (units): 2 201 to 250 Give (units): 4 251 to 300 Give (units): 6 301 to 350 Give (units): 8 Greater than 350 Give (units): 10 Call MD if Blood Glucose > : 350 Rx Instructions: 8-12 units SLIDING SCALE Discharge Orders: Discharge Order (Routine); Ordered 05/28/24 Ordered By: Dalia Klein Diet: Low salt diet Activity on Discharge: As tolerated Stand Alone Forms: Patient Portal Discharge page Print Language: [place] Care Plan Goals: Continue treating felon/infection R index finger Health Concerns: Felon/infection R index finger with MRSA/strep viridens bacteria ESRD on HD Plan of Treatment: Continue IV vancomycin after HD x 4 sessions. Nephrology to arrange and has been notified Wash hands frequently due to MRSA infection and cover with dry bandage Continue HD on current schedule Assessment: See above. See discharge summary Discharge Date/Time: 05/28/24 15:54
[2024-05-28 11:04] VITALS: BP 162/67; PULSE 62; RESP 17; TEMP 36.3; O2SAT 94
[2024-05-28 11:34] LABS: Glucose, Whole Blood 173 mg/dL (60-115)
[2024-05-28] MEDS: Heparin Sodium,Porcine 5,000 UNIT/ML VIAL 5000 UNIT SUBCUT (11:54)
[2024-05-28] MEDS: Clopidogrel Bisulfate 75 MG TABLET PO (11:56)
[2024-05-28] MEDS: Sevelamer Carbonate Tablet 800 MG TABLET PO (11:56)
[2024-05-28] MEDS: Magnesium Oxide 400 MG TABLET PO (11:57)
[2024-05-28] MEDS: carvediloL 12.5 MG TABLET PO (12:00)
[2024-05-28] MEDS: Insulin Glargine,Hum.rec.anlog 100 UNIT/ML 10 ML VIAL 10 UNIT SUBCUT (14:00)
--- NOTE | 2024-05-28 14:07 | MHC.CM.PN ---
IMM 05/28/24, PT MEDICALLY CLEARED FOR DC HOME W/RESUMP OF FAMILY SUPPORT AND OUTPT HD AT [facility], CM CONTACTED PT'S DTR/GSON WHO REPORT THEY ARE HOMEHARRIET FOR BLS TRANSPORT AT 2:30PM
== END 2024-05-28 15:54 | disposition home or self-care (01) | DRG 602 ==
LOC: HO.ED 20:21 → HO.EDOVER 20:30 → HO.IMC 05-25 14:00
PROVIDERS: Internal Medicine; Physician Assistant Medical; Admitting Provider Student in an Organized Health Care Education/Training Program; Emergency Provider Emergency Medicine Emergency Medical Services; PCP Internal Medicine; Visit Provider Physician Assistant
DX: L03.011 Cellulitis of right finger (principal); I50.33 Acute on chronic diastolic (congestive) heart failure; N18.6 End stage renal disease; J96.01 Acute respiratory failure with hypoxia; I13.2 Hypertensive heart and chronic kidney disease with heart failure and with stage 5 chronic kidney disease, or end stage renal disease; M86.641 Other chronic osteomyelitis, right hand; F39 Unspecified mood [affective] disorder; E11.69 Type 2 diabetes mellitus with other specified complication; E11.22 Type 2 diabetes mellitus with diabetic chronic kidney disease; E78.2 Mixed hyperlipidemia; Z99.2 Dependence on renal dialysis; E11.65 Type 2 diabetes mellitus with hyperglycemia; D63.1 Anemia in chronic kidney disease; B95.4 Other streptococcus as the cause of diseases classified elsewhere; B95.62 Methicillin resistant Staphylococcus aureus infection as the cause of diseases classified elsewhere; Z91.158 Patient's noncompliance with renal dialysis for other reason; Z89.512 Acquired absence of left leg below knee; Z86.73 Personal history of transient ischemic attack (TIA), and cerebral infarction without residual deficits; Z99.3 Dependence on wheelchair; Z79.4 Long term (current) use of insulin; Z79.02 Long term (current) use of antithrombotics/antiplatelets; Z79.82 Long term (current) use of aspirin; Z79.899 Other long term (current) drug therapy
CPT/HCPCS: 36415; 71045; 73140; 80048; 80053; 80202; 82565; 82947; 83605; 83880; 84484; 85025; 85027; 85610; 85652; 85730; 86140; 87040; 87070; 87077; 87186; 87205; 90999; 93005; 94640; 99285; J1644; J1940; J2543; J3370; J3371

== ENCOUNTER → 2024-05-24 20:22 | Outpatient (BNV) | payer OTHER, SELFPAY | PROVIDERS: Admitting Provider Student in an Organized Health Care Education/Training Program; Emergency Provider Emergency Medicine Emergency Medical Services; Visit Provider Student in an Organized Health Care Education/Training Program | DX: L03.011 Cellulitis of right finger (principal) | CPT/HCPCS: 99223; 99232; 99239 ==

== ENCOUNTER → 2024-05-24 20:22 | Outpatient (BNV) | payer OTHER, SELFPAY | PROVIDERS: Admitting Provider Student in an Organized Health Care Education/Training Program; Emergency Provider Emergency Medicine Emergency Medical Services; Visit Provider Physician Assistant | DX: L03.011 Cellulitis of right finger (principal); Z89.029 Acquired absence of unspecified finger(s); N18.6 End stage renal disease; I50.9 Heart failure, unspecified | CPT/HCPCS: 99222; 99231 ==

== ENCOUNTER 2024-06-14 19:20 | Emergency (ER) | payer OTHER, SELFPAY ==
[2024-06-14 19:25] VITALS: BP 168/70; PULSE 70; O2SAT 95
[2024-06-14 19:28] VITALS: BP 173/62; PULSE 72; RESP 16; TEMP 36.9; O2SAT 93; BMI 31.9
--- NOTE | 2024-06-14 19:45 | PC.NURSE ---
bladder scan showed 55mL Urine. awaiting primary eval by ed provider. pt is axox4 bulgarian speaking triage done with junior staff accountant. dialysis port to R. chest. skin wpd. call peck within reach.
[2024-06-14 21:25] VITALS: BP 138/48; PULSE 72; RESP 16; TEMP 37.1; O2SAT 96
--- NOTE | 2024-06-15 00:04 | ED_ITS ---
HPI - Female Genitourinary General Chief complaint: Urogenital-Female Stated complaint: From home, urinary retention since this am Time Seen by Provider: 06/14/24 23:50 Source: patient Mode of arrival: ambulatory Limitations: no limitations History of Present Illness ED Provider: Dr. Cecilia Church HPI Narrative: Patient comes to the emergency room complaining urinary retention. Patient s tates that she has a strong urge to urinate but has not been able to pass any urine. Patient denies any other complaints. Related Data Home Medications ?Medication ?Instructions ?Recorded ?Confirmed aspirin 81 mg tablet,delayed 81 mg PO BEDTIME 06/20/21 05/24/24 release atorvastatin 80 mg tablet 80 mg PO BEDTIME 06/20/21 05/24/24 clopidogrel 75 mg tablet 75 mg PO DAILY 06/20/21 05/24/24 magnesium oxide 400 mg (241.3 mg 400 mg PO DAILY 04/20/23 05/24/24 magnesium) tablet blood sugar diagnostic (GatheredtableTouch #10 ea 05/25/23 Ultra Test strips) insulin aspart U-100 100 unit/mL See Protocol subcut NEEDED PRN 05/25/23 05/24/24 (3 mL) subcutaneous pen (Novolog bs >200 FlexPen U-100 Insulin aspart) lancets 33 gauge (OneTouch Delica #100 ea 05/25/23 Plus Lancet) pen needle, diabetic 32 gauge x #1,200 ea 05/25/2332 (Pentips) melatonin 5 mg tablet 5 - 10 mg PO BEDTIME PRN Sleep 09/21/23 05/24/24 sevelamer carbonate 800 mg tablet 800 mg PO TIDWM 10/08/23 05/24/24 albuterol sulfate 90 mcg/actuation 2 inh inhalation Q6H PRN shortness 01/02/24 05/24/24 breath activated powder inhaler of breath or wheezing cholecalciferol (vitamin D3) 1,250 1,250 mcg PO WEN 01/02/24 05/24/24 mcg (50,000 unit) capsule pantoprazole 40 mg tablet,delayed 40 mg PO DAILY@0630 01/02/24 05/24/24 release insulin glargine 100 unit/mL (3 20 unit subcut DAILY 05/24/24 05/24/24 mL) subcutaneous pen (Lantus Solostar U-100 Insulin) Previous Rx's ?Medication ?Instructions ?Recorded carvedilol 12.5 mg tablet 12.5 mg PO BIDWM #60 tabs 10/11/23 sennosides 8.6 mg tablet (Natural 17.2 mg (2 x 8.6 mg) PO BEDTIME 11/22/23 Senna Laxative) constipation #60 tabs acetaminophen 325 mg capsule 650 mg (2 x 325 mg) PO Q6H PRN 03/02/24 pain #20 caps vancomycin 500 mg/100 mL in 0.9% 500 mg (100 mL) IV .MWF 05/28/24 sodium chloride intravenous piggyback cefuroxime axetil 250 mg tablet 250 mg PO BID #14 tabs 06/15/24 Allergies Allergy/AdvReac Type Severity Reaction Status Date / Time lobster AdvReac Hives Verified 06/14/24 19:28 Review of Systems Review of Systems: Constitutional : No Weight loss, No Fever, No Chills, No Night Sweats, No Fatigue, No Malaise ENT/Mouth : No Hearing loss, No Ear Pain, No Nasal Congestion, No Sinus Pain, No Hoarseness, No sore throat, No Rhinorrhea, No Swallowing Difficulty Eyes: No Eye Pain, No Swelling, No Redness, No Foreign Body, No Discharge, No Vision Changes Cardiovascular : No Chest Pain, No SOB, No Dyspnea on Exertion, No Orthopnea, No Edema, No Palpitations Respiratory : No Cough, No Sputum, No Wheezing, No Smoke Exposure, No Dyspnea Gastrointestinal : No Nausea, No Vomiting, No Diarrhea, No Constipation, No abdominal Pain, No Hematochezia, No Melena Genitourinary : Complaining of the sensation like she can not urinate. No Urinary Incontinence, No Urgency, No Flank Pain, No Urinary Flow Changes, No Hesitancy Musculoskeletal : No joint pain, No Myalgias, No Joint Swelling Skin : No Skin Lesions, No rash Neuro : No Weakness, No Numbness, No Paresthesias, No Loss of Consciousness, No Dizziness, No Headache Psych : No Anxiety/Panic, No Depression, No SI/HI/AH/VH, No Social Issues, Heme/Lymph: No Bruising, No Bleeding,No Lymphadenopathy Endocrine : No Polyuria, No Polydipsia, No Temperature Intolerance [facility] Past Medical History Medical History End stage renal disease Bilateral visual loss Open wnd toe-complicated Wound, open, hand with or without fingers with complication End stage renal disease on dialysis Congestive heart failure Hyperglycemia due to diabetes mellitus Anemia Heart failure with reduced ejection fraction Dialysis patient, noncompliant Chronic kidney disease Thrombocytopenia CKD (chronic kidney disease) stage 4, GFR 15-29 ml/min Constipation Ischemic necrosis of finger Normocytic anemia Urinary tract infection due to ESBL Klebsiella Chronic heart failure with preserved ejection fraction (HFpEF) Hypomagnesemia Acute on chronic renal failure Essential hypertension HLD (hyperlipidemia) Non-ST elevated myocardial infarction Diabetes mellitus Nonischemic cardiomyopathy Irritable bowel syndrome with diarrhea Gastroparesis GERD (gastroesophageal reflux disease) Surgical History Status post amputation of finger H/O surgical amputation of finger History of laparoscopic cholecystectomy History of intestinal surgery Hx of eye surgery History of esophagogastroduodenoscopy (EGD) Hx of colonoscopy H/O: hysterectomy Family History Family History Father Lung cancer Mother Diabetes HTN (hypertension) Heart disease Sister Diabetes Heart disease Brother Heart disease Son Diabetes Daughter Diabetes Social History Social History Household Members: Children Household Members Other:: daughter and grandson Housing: House Do you presently have visiting nurse or other home services: No (considering her grandson to be FOUR CORNER STAYER MACHINE OPERATOR) Unable to assess alcohol history related to: Unable to respond and Unknown Alcohol intake: never Comment: camera in place Patient Tobacco Use Status: Never used Tobacco e-Cigarette/Vaping Use: Never Used Second Hand Smoke Exposure: No Advance Directives: Yes Advance Directives on File: Yes Advance Directives Date on File: 01/04/23 service: No Current occupational status: disabled Physical Exam Vital Signs: Vital Signs: Last Vital Signs Temp 98.1 F 06/15/24 00:23 Pulse 73 06/15/24 03:17 Resp 16 06/15/24 03:17 BP 164/66 H 06/15/24 03:17 Pulse Ox 97 06/15/24 03:17 O2 Del Method Room Air 06/15/24 00:23 BMI result Body Mass Index 31.9 Medical Decision Making Medical Decision Making [facility] Narrative: -patient had bladder scans, patient was holding minimal amount of urine. -patient's urine positive for UTI, likely causing the symptoms of the patient. Patient was given cefuroxime p.o. and will be discharged with a prescription. -patient never had urinary retention Differential Diagnosis Differential Diagnoses: The differential diagnosis associated with the pr esentation includes (UTI: Urinary retention) Lab Data Labs: Lab Results 06/15/24 Range/Units 03:19 Urine Color Dark Yellow Urine Appearance Turbid Urine pH 7.0 (5.0-9.0) Ur Specific [place] 1.025 (1.005-1.025) Urine Protein >=1000 (4+) H (Neg-Trace) mg/dL Urine Glucose (UA) Negative (Negative) mg/dL Urine Ketones Negative (Negative) mg/dL Urine Blood Moderate (2+) H (Negative) Urine Nitrite Negative (Negative) Ur Leukocyte Esterase Large (3+) H (Negative) Urine RBC 11-20 H (0-2) /HPF Urine WBC >50 H (0-5) /HPF Ur Squamous Epith Cells 6-10 (0-2) /HPF Urine Bacteria 4+ (None Seen) Hyaline Casts 3-5 (0-2) /LPF Urine Yeast Present Discharge Plan Discharge Clinical Impression: Acute UTI Patient Disposition: Home, Self-Care Instructions: Urinary Tract Infection in Older Adults (ED) Additional Instructions: Please follow-up with your primary care physician tomorrow. If you have any worsening or new symptoms, please return to the emergency room or call 911 Prescriptions: New cefuroxime axetil 250 mg tablet 250 mg PO BID Qty: 14 0RF No Action atorvastatin 80 mg tablet 80 mg PO BEDTIME clopidogrel 75 mg tablet 75 mg PO DAILY aspirin 81 mg tablet,delayed release (DR/EC) 81 mg PO BEDTIME magnesium oxide 400 mg (241.3 mg magnesium) tablet 400 mg PO DAILY sevelamer carbonate 800 mg tablet 800 mg PO TIDWM carvedilol 12.5 mg Tablet 12.5 mg PO BIDWM Qty: 60 1RF Protocol: Hold for SBP/HR < HOLD for SBP < : 90 HOLD for HR < : 60 acetaminophen 325 mg capsule 650 mg PO Q6H PRN (Reason: pain) Qty: 20 0RF melatonin 5 mg tablet 5 - 10 mg PO BEDTIME PRN (Reason: Sleep) cholecalciferol (vitamin D3) 1,250 mcg (50,000 unit) capsule 1,250 mcg PO WEN pantoprazole 40 mg tablet,delayed release (DR/EC) 40 mg PO DAILY@0630 Rx Instructions: take one tablet half an hour before breakfast albuterol sulfate 90 mcg/actuation aerosol powdr breath activated 2 inh inhalation Q6H PRN (Reason: shortness of breath or wheezing) insulin glargine [Lantus Solostar U-100 Insulin] 100 unit/mL (3 mL) insulin pen 20 unit subcut DAILY vancomycin in 0.9 % sodium chl 500 mg/100 mL piggyback 500 mg IV .MWF Rx Instructions: WITH hd sennosides [Natural Senna Laxative] 8.6 mg tablet 17.2 mg PO BEDTIME Qty: 60 3RF (DME) lancets [OneTouch Delica Plus Lancet] 33 gauge misc See Rx Instructions .ROUTE TID Qty: 100 Rx Instructions: As directed (DME) pen needle, diabetic [Pentips] 32 gauge x 5/32 needle See Rx Instructions .ROUTE DIRECTED Qty: 1200 Rx Instructions: As directed (DME) OneTouch Ultra Test Strip See Rx Instructions .ROUTE TID Qty: 10 Rx Instructions: As directed insulin aspart U-100 [Novolog FlexPen U-100 Insulin] 100 unit/mL (3 mL) insulin pen See Protocol subcut NEEDED PRN (Reason: bs >200) Protocol: Insulin Correction Scale Less than or equal to 110 ---- Give (units): 0 111 to 150 Give (units): 0 151 to 200 Give (units): 2 201 to 250 Give (units): 4 251 to 300 Give (units): 6 301 to 350 Give (units): 8 Greater than 350 Give (units): 10 Call MD if Blood Glucose > : 350 Rx Instructions: 8-12 units SLIDING SCALE Print Language: Grenadian
[2024-06-15 00:23] VITALS: BP 171/74; PULSE 69; RESP 20; TEMP 36.7; O2SAT 98
--- NOTE | 2024-06-15 01:00 | PC.NURSE ---
bladder scan showed only 12mL urine. provided water per MD request. pt is axox4 and call peck within reach. educated pt to notify staff when need to urinate to obtain urine sample/straight cath, pt notified staff at this time that she peed the bed, swearing in serbian. offered pt purewick for incontinence and refusing. made aware.
[2024-06-15 03:17] VITALS: BP 164/66; PULSE 73; RESP 16; O2SAT 97
[2024-06-15 03:26] LABS: Appearance Urine Turbid; Color Urine Dark Yellow; Glucose Urine UA Negative (Negative); Leukocyte Esterase Urine Large (3+) (Negative); Nitrite Urine Negative (Negative); Specific Gravity - Urine 1.025 (1.005-1.025); UMIC TRIGGER UACC YES; Urine Blood Moderate (2+) (Negative); Urine Ketones Negative (Negative); Urine Protein >=1000 (4+) mg/dL (Neg-Trace)
[2024-06-15 03:34] LABS: Bacteria Urine 4+ (None Seen); UACC Culture Trigger YES; WBC Urine >50 /HPF (0-5)
[2024-06-15] MEDS: cefuroxime axetiL 500 MG TABLET PO (05:03)
[2024-06-15 06:20] VITALS: BP 160/43; PULSE 71; RESP 12; TEMP 36.9; O2SAT 97
[2024-06-15 06:24] VITALS: BP 160/43; PULSE 71; RESP 12; TEMP 36.9; O2SAT 97
== END 2024-06-15 06:25 | disposition home or self-care (01) ==
PROVIDERS: Emergency Provider Emergency Medicine
DX: N39.0 Urinary tract infection, site not specified (principal); R33.9 Retention of urine, unspecified; E11.22 Type 2 diabetes mellitus with diabetic chronic kidney disease; I13.0 Hypertensive heart and chronic kidney disease with heart failure and stage 1 through stage 4 chronic kidney disease, or unspecified chronic kidney disease; N18.4 Chronic kidney disease, stage 4 (severe); I50.9 Heart failure, unspecified; N17.9 Acute kidney failure, unspecified; Z79.82 Long term (current) use of aspirin; Z79.02 Long term (current) use of antithrombotics/antiplatelets; Z79.4 Long term (current) use of insulin
CPT/HCPCS: 51798; 81001; 87086; 87088; 87186; 99284

== ENCOUNTER 2024-06-15 06:48 | Emergency (ER) | payer OTHER, SELFPAY ==
[2024-06-15 06:58] VITALS: BP 166/78; PULSE 69; RESP 17; TEMP 37; O2SAT 93; BMI 29.3
--- NOTE | 2024-06-15 07:02 | ED.GENADULT ---
HPI - General Adult General Stated complaint: malaise Time Seen by Provider: 06/15/24 06:54 Source: patient and EMS Mode of arrival: EMS Limitations: no limitations History of Present Illness ED Provider: Dr. Cecilia Church HPI narrative: Patient comes to the emergency room via ambulance from home. Patient was discharged from the hospital about 1-1/2 hours ago. Patient was seen here earlier today for urinary retention sensation without actual urinary retention. Patient was diagnosed with a UTI. The ambulance came to shredder picker the patient, and was taken home. Per EMS, the patient had informed them that there is always a 1 at home waiting for her. However, when they got to the patient's residence, no one open the door. Per EMS, they knocked on every door and window but no one was at home to receive the patient. Patient was brought to the emergency room. No new complaints Related Data Home Medications ?Medication ?Instructions ?Recorded ?Confirmed aspirin 81 mg tablet,delayed 81 mg PO BEDTIME 06/20/21 05/24/24 release atorvastatin 80 mg tablet 80 mg PO BEDTIME 06/20/21 05/24/24 clopidogrel 75 mg tablet 75 mg PO DAILY 06/20/21 05/24/24 magnesium oxide 400 mg (241.3 mg 400 mg PO DAILY 04/20/23 05/24/24 magnesium) tablet blood sugar diagnostic (OneTouch #10 ea 05/25/23 Ultra Test strips) insulin aspart U-100 100 unit/mL See Protocol subcut NEEDED PRN 05/25/23 05/24/24 (3 mL) subcutaneous pen (Novolog bs >200 FlexPen U-100 Insulin aspart) lancets 33 gauge (OneTouch Delica #100 ea 05/25/23 Plus Lancet) pen needle, diabetic 32 gauge x #1,200 ea 05/25/23/32 (Pentips) melatonin 5 mg tablet 5 - 10 mg PO BEDTIME PRN Sleep 09/21/23 05/24/24 sevelamer carbonate 800 mg tablet 800 mg PO TIDWM 10/08/23 05/24/24 albuterol sulfate 90 mcg/actuation 2 inh inhalation Q6H PRN shortness 01/02/24 05/24/24 breath activated powder inhaler of breath or wheezing cholecalciferol (vitamin D3) 1,250 1,250 mcg PO WEN 01/02/24 05/24/24 mcg (50,000 unit) capsule pantoprazole 40 mg tablet,delayed 40 mg PO DAILY@0630 01/02/24 05/24/24 release insulin glargine 100 unit/mL (3 20 unit subcut DAILY 05/24/24 05/24/24 mL) subcutaneous pen (Lantus Solostar U-100 Insulin) Previous Rx's ?Medication ?Instructions ?Recorded carvedilol 12.5 mg tablet 12.5 mg PO BIDWM #60 tabs 10/11/23 sennosides 8.6 mg tablet (Natural 17.2 mg (2 x 8.6 mg) PO BEDTIME 11/22/23 Senna Laxative) constipation #60 tabs acetaminophen 325 mg capsule 650 mg (2 x 325 mg) PO Q6H PRN 03/02/24 pain #20 caps vancomycin 500 mg/100 mL in 0.9% 500 mg (100 mL) IV .MW 05/28/24 sodium chloride intravenous piggyback cefuroxime axetil 250 mg tablet 250 mg PO BID #14 tabs 06/15/24 Allergies Allergy/AdvReac Type Severity Reaction Status Date / Time lobster AdvReac Hives Verified 06/15/24 07:00 Review of Systems Review of Systems: Constitutional : No Weight loss, No Fever, No Chills, No Night Sweats, No Fatigue, No Malaise ENT/Mouth : No Hearing loss, No Ear Pain, No Nasal Congestion, No Sinus Pain, No Hoarseness, No sore throat, No Rhinorrhea, No Swallowing Difficulty Eyes: No Eye Pain, No Swelling, No Redness, No Foreign Body, No Discharge, No Vision Changes Cardiovascular : No Chest Pain, No SOB, No Dyspnea on Exertion, No Orthopnea, No Edema, No Palpitations Respiratory : No Cough, No Sputum, No Wheezing, No Smoke Exposure, No Dyspnea Gastrointestinal : No Nausea, No Vomiting, No Diarrhea, No Constipation, No abdominal Pain, No Hematochezia, No Melena Genitourinary : no irregular bleeding, No Dysuria, No Urinary Frequency, No Hematuria, No Urinary Incontinence, No Urgency, No Flank Pain, No Urinary Flow Changes, No Hesitancy Musculoskeletal : No joint pain, No Myalgias, No Joint Swelling Skin : No Skin Lesions, No rash Neuro : No Weakness, No Numbness, No Paresthesias, No Loss of Consciousness, No Dizziness, No Headache Psych : No Anxiety/Panic, No Depression, No SI/HI/AH/VH, No Social Issues, Heme/Lymph: No Bruising, No Bleeding,No Lymphadenopathy Endocrine : No Polyuria, No Polydipsia, No Temperature Intolerance [facility] Past Medical History Medical History Bilateral visual loss Open wnd toe-complicated Wound, open, hand with or without fingers with complication End stage renal disease on dialysis Congestive heart failure Hyperglycemia due to diabetes mellitus Anemia Heart failure with reduced ejection fraction Dialysis patient, noncompliant Chronic kidney disease Thrombocytopenia CKD (chronic kidney disease) stage 4, GFR 15-29 ml/min Constipation Ischemic necrosis of finger Normocytic anemia Urinary tract infection due to ESBL Klebsiella Chronic heart failure with preserved ejection fraction (HFpEF) Hypomagnesemia Acute on chronic renal failure Essential hypertension HLD (hyperlipidemia) Non-ST elevated myocardial infarction Diabetes mellitus Nonischemic cardiomyopathy Irritable bowel syndrome with diarrhea Gastroparesis GERD (gastroesophageal reflux disease) Surgical History Status post amputation of finger H/O surgical amputation of finger History of laparoscopic cholecystectomy History of intestinal surgery Hx of eye surgery History of esophagogastroduodenoscopy (EGD) Hx of colonoscopy H/O: hysterectomy Family History Family History Father Lung cancer Mother Diabetes HTN (hypertension) Heart disease Sister Diabetes Heart disease Brother Heart disease Son Diabetes Daughter Diabetes Social History Social History Household Members: Children Household Members Other:: daughter and grandson Housing: House Do you presently have visiting nurse or other home services: No (considering her grandson to be SCHOOL BUS AIDE) Unable to assess alcohol history related to: Unable to respond and Unknown Alcohol intake: never Comment: camera in place Patient Tobacco Use Status: Never used Tobacco e-Cigarette/Vaping Use: Never Used Second Hand Smoke Exposure: No Advance Directives Date on File: 01/04/23 service: No Current occupational status: disabled Physical Exam ED Const Other: Appearance: Alert. Oriented X3. No acute distress. Eyes: Pupils equal, round and reactive to light. ENT: Pharynx normal. Neck: Normal inspection. Neck supple. No lymph nodes noted. No crepitus CVS: Normal heart rate and rhythm. Pulses normal. Normal S1 and S2 Respiratory: No respiratory distress. Breath sounds normal. No Wheezing. No rales Abdomen: Soft and nontender. No rigidity. No distention. Skin: Skin warm and dry. Normal skin color. Normal skin turgor. Extremities: No lower extremity edema. No Lacerations. No Rash Neuro: Oriented X 3. No motor deficit. No sensory deficit. Moving all extremities. No slurred speech. CN 2 through 12 grossly intact Psych: calm, cooperative, normal affect Medical Decision Making Medical Decision Making MDM Narrative: Patient is waiting in the emergency room waiting for someone in her house to open the door -patient may need case management. -sign-out given to my colleague Dr. Cárdenas Discharge Plan Discharge Clinical Impression: Housing problems Patient Disposition: Still a Patient Prescriptions: No Action atorvastatin 80 mg tablet 80 mg PO BEDTIME clopidogrel 75 mg tablet 75 mg PO DAILY aspirin 81 mg tablet,delayed release (DR/EC) 81 mg PO BEDTIME magnesium oxide 400 mg (241.3 mg magnesium) tablet 400 mg PO DAILY sevelamer carbonate 800 mg tablet 800 mg PO TIDWM carvedilol 12.5 mg Tablet 12.5 mg PO BIDWM Qty: 60 1RF Protocol: Hold for SBP/HR < HOLD for SBP < : 90 HOLD for HR < : 60 acetaminophen 325 mg capsule 650 mg PO Q6H PRN (Reason: pain) Qty: 20 0RF melatonin 5 mg tablet 5 - 10 mg PO BEDTIME PRN (Reason: Sleep) cholecalciferol (vitamin D3) 1,250 mcg (50,000 unit) capsule 1,250 mcg PO WEN pantoprazole 40 mg tablet,delayed release (DR/EC) 40 mg PO DAILY@0630 Rx Instructions: take one tablet half an hour before breakfast albuterol sulfate 90 mcg/actuation aerosol powdr breath activated 2 inh inhalation Q6H PRN (Reason: shortness of breath or wheezing) insulin glargine [Lantus Solostar U-100 Insulin] 100 unit/mL (3 mL) insulin pen 20 unit subcut DAILY vancomycin in 0.9 % sodium chl 500 mg/100 mL piggyback 500 mg IV .MWF Rx Instructions: WITH hd cefuroxime axetil 250 mg tablet 250 mg PO BID Qty: 14 0RF sennosides [Natural Senna Laxative] 8.6 mg tablet 17.2 mg PO BEDTIME Qty: 60 3RF (DME) lancets [OneTouch Delica Plus Lancet] 33 gauge misc See Rx Instructions .ROUTE TID Qty: 100 Rx Instructions: As directed (DME) pen needle, diabetic [Pentips] 32 gauge x 5/32 needle See Rx Instructions .ROUTE DIRECTED Qty: 1200 Rx Instructions: As directed (DME) OneTouch Ultra Test Strip See Rx Instructions .ROUTE TID Qty: 10 Rx Instructions: As directed insulin aspart U-100 [Novolog FlexPen U-100 Insulin] 100 unit/mL (3 mL) insulin pen See Protocol subcut NEEDED PRN (Reason: bs >200) Protocol: Insulin Correction Scale Less than or equal to 110 ---- Give (units): 0 111 to 150 Give (units): 0 151 to 200 Give (units): 2 201 to 250 Give (units): 4 251 to 300 Give (units): 6 301 to 350 Give (units): 8 Greater than 350 Give (units): 10 Call MD if Blood Glucose > : 350 Rx Instructions: 8-12 units SLIDING SCALE Print Language: Dutch
--- NOTE | 2024-06-15 08:40 | PC.NURSE ---
patient resting quietly in bed, offering no complaints. provided with breakfast tray.
[2024-06-15 10:49] VITALS: BP 153/61; PULSE 70; RESP 16; TEMP 36.1; O2SAT 96
[2024-06-15 11:05] VITALS: BP 153/61; PULSE 70; RESP 16; TEMP 36.1; O2SAT 96
== END 2024-06-15 11:06 | disposition home or self-care (01) ==
PROVIDERS: Emergency Provider Emergency Medicine
DX: N39.0 Urinary tract infection, site not specified (principal); B96.20 Unspecified Escherichia coli [E. coli] as the cause of diseases classified elsewhere; Z72.89 Other problems related to lifestyle; Z59.89 Other problems related to housing and economic circumstances; E11.22 Type 2 diabetes mellitus with diabetic chronic kidney disease; I13.2 Hypertensive heart and chronic kidney disease with heart failure and with stage 5 chronic kidney disease, or end stage renal disease; I50.9 Heart failure, unspecified; N18.6 End stage renal disease; Z99.2 Dependence on renal dialysis; N17.9 Acute kidney failure, unspecified; E78.5 Hyperlipidemia, unspecified; Z79.02 Long term (current) use of antithrombotics/antiplatelets; Z79.82 Long term (current) use of aspirin; Z79.4 Long term (current) use of insulin; Z79.899 Other long term (current) drug therapy
CPT/HCPCS: 99284

== ENCOUNTER 2024-07-05 06:06 | Emergency (ER) | payer OTHER, SELFPAY ==
--- NOTE | ~2024-07-05 | CT_ITS ---
EXAMINATION: CT ABDOMEN AND PELVIS WITHOUT CONTRAST CLINICAL INFORMATION: Abdominal pain. COMPARISON: CT scans dating between October 07, 2023 and March 03, 2016. More remote prior studies are not currently available. TECHNIQUE: Multidetector volumetric imaging was performed from the superior aspect of the liver through the pubic symphysis. Sagittal and coronal reformatted images were obtained on the technologist's workstation. This CT examination was performed using dose optimization techniques as appropriate, variously including the following: *Automated exposure control *Adjustment of mA and/or kV according to patient size (this includes techniques or standardized protocols for targeted exams where dose is matched to indication/reason for exam; i.e. extremities or head) *Use of iterative reconstruction technique DLP: 476 mGy-cm FINDINGS: LUNG BASES: Small to moderate right and trace left pleural effusions with associated atelectasis, similar compared with October 07, 2023. Possible congestive changes, similar to worse. Mosaic lung parenchymal density raising suspicion for small airways disease, grossly similar. Mild cardiomegaly. Suspect decreased blood pool density, raising suspicion for anemia. Coronary arterial calcification. Calcification of the aortic valve. No pericardial effusion. LIVER, GALLBLADDER, AND BILIARY TREE: The liver appears unremarkable in size, shape, and attenuation. No focal hepatic lesion or biliary ductal dilatation is appreciated. Status post cholecystectomy. PANCREAS: Unremarkable SPLEEN: Scattered calcified splenic granulomata. ADRENAL GLANDS: Unremarkable KIDNEYS AND URETERS: The kidneys appear unremarkable in size, shape, and attenuation. No hydronephrosis, hydroureter, or calculi seen. Mild degenerative changes of the spine and hips. BLADDER: Suspect mild diffuse thickening of the wall the urinary bladder, similar compared with most recent prior study from October 07, 2023, nonspecific. GASTROINTESTINAL TRACT: Unremarkable appearance of the stomach. Small bowel anastomotic heather. Question few, scattered colonic diverticula without evidence of diverticulitis. Normal-appearing distal ileum and vermiform appendix. ABDOMINAL WALL: Mild anasarca, similar compared with most recent prior. Mid lower anterior abdominal wall surgical mesh. No significant hernia is appreciated. Suspect mild pelvic prolapse. LYMPH NODES: No evidence of adenopathy by size criteria. VASCULAR: Extensive medium and small vessel arterial calcification. PELVIC VISCERA: Status post hysterectomy. OSSEOUS STRUCTURES: Unremarkable CT/CT abdomen pelvis wo IV con IMPRESSION: Suspect mild diffuse thickening of the wall the urinary bladder, similar compared with October 07, 2023, nonspecific. Differential diagnosis includes, but is not limited to, cystitis, neurogenic, muscular hypertrophy, etc. Small to moderate right and trace left pleural effusions with associated atelectasis, similar compared with October 07, 2023. Possible congestive changes, similar to worse. Mosaic lung parenchymal density raising suspicion for small airways disease, grossly similar. Mild cardiomegaly. Suspect decreased blood pool density, raising suspicion for anemia. Coronary arterial calcification. Calcification of the aortic valve. Extensive medium and small vessel arterial calcification, suggesting diabetic and/or renal calcific atherosclerosis. Suspect mild pelvic prolapse. Additional findings, as above. Electronically signed by: Fransisco Dejesus MD 07/05/2024 09:53 AM EDT
[2024-07-05 06:10] VITALS: BP 170/102; PULSE 74; O2SAT 97; BMI 31.9
[2024-07-05 06:12] VITALS: BP 199/85; PULSE 73; RESP 14; TEMP 36.7
--- NOTE | 2024-07-05 06:30 | MHC.EDTECH ---
at this time this tech placed the pt on the air sampling and monitoring after checking her bladder for urine using the bladder scanner, pt complained of her abdominal pain, otherwise tolerated the procedure well
--- NOTE | 2024-07-05 07:00 | PC.NURSE ---
Report taken from Niranjan Barth RN
--- NOTE | 2024-07-05 07:06 | ED_ITS ---
HPI - Abdominal Pain General Chief Complaint: Abdominal Pain Stated Complaint: severe abd pain Time Seen by Provider: 07/05/24 07:03 Source: patient Mode of arrival: ambulatory Limitations: no limitations History of Present Illness HPI narrative: 69 year old female ESRD dialysis today at 11 am comes to the ER for elevated blood sugar and abdominal pain. Patient is [place]-speaking she states that her pain started yesterday she has past medical history of urinary retention toxic metabolic encephalopathy dysphagia had acute CVA in the past as well as pneumonia CHF. MD elicited complaint: abdominal pain Related Data Home Medications ?Medication ?Instructions ?Recorded ?Confirmed aspirin 81 mg tablet,delayed 81 mg PO BEDTIME 06/20/21 05/24/24 release atorvastatin 80 mg tablet 80 mg PO BEDTIME 06/20/21 05/24/24 clopidogrel 75 mg tablet 75 mg PO DAILY 06/20/21 05/24/24 magnesium oxide 400 mg (241.3 mg 400 mg PO DAILY 04/20/23 05/24/24 magnesium) tablet blood sugar diagnostic ([facility] #10 ea 05/25/23 Ultra Test strips) insulin aspart U-100 100 unit/mL See Protocol subcut NEEDED PRN 05/25/23 05/24/24 (3 mL) subcutaneous pen (Novolog bs >200 FlexPen U-100 Insulin aspart) lancets 33 gauge (OneTouch Delica #100 ea 05/25/23 Plus Lancet) pen needle, diabetic 32 gauge x #1,200 ea 05/25/23 (Pentips) melatonin 5 mg tablet 5 - 10 mg PO BEDTIME PRN Sleep 09/21/23 05/24/24 sevelamer carbonate 800 mg tablet 800 mg PO TIDWM 10/08/23 05/24/24 albuterol sulfate 90 mcg/actuation 2 inh inhalation Q6H PRN shortness 01/02/24 05/24/24 breath activated powder inhaler of breath or wheezing cholecalciferol (vitamin D3) 1,250 1,250 mcg PO WEN 01/02/24 05/24/24 mcg (50,000 unit) capsule pantoprazole 40 mg tablet,delayed 40 mg PO DAILY@0630 01/02/24 05/24/24 release insulin glargine 100 unit/mL (3 20 unit subcut DAILY 05/24/24 05/24/24 mL) subcutaneous pen (Lantus Solostar U-100 Insulin) Previous Rx's ?Medication ?Instructions ?Recorded carvedilol 12.5 mg tablet 12.5 mg PO BIDWM #60 tabs 10/11/23 sennosides 8.6 mg tablet (Natural 17.2 mg (2 x 8.6 mg) PO BEDTIME 11/22/23 Senna Laxative) constipation #60 tabs acetaminophen 325 mg capsule 650 mg (2 x 325 mg) PO Q6H PRN 03/02/24 pain #20 caps vancomycin 500 mg/100 mL in 0.9% 500 mg (100 mL) IV .MWF 05/28/24 sodium chloride intravenous piggyback cefuroxime axetil 250 mg tablet 250 mg PO BID #14 tabs 06/15/24 Allergies Allergy/AdvReac Type Severity Reaction Status Date / Time lobster AdvReac Hives Verified 07/05/24 06:13 [facility] Past Medical History Medical History Bilateral visual loss Open wnd toe-complicated Wound, open, hand with or without fingers with complication End stage renal disease on dialysis Congestive heart failure Hyperglycemia due to diabetes mellitus Anemia Heart failure with reduced ejection fraction Dialysis patient, noncompliant Chronic kidney disease Thrombocytopenia CKD (chronic kidney disease) stage 4, GFR 15-29 ml/min Constipation Ischemic necrosis of finger Normocytic anemia Urinary tract infection due to ESBL Klebsiella Chronic heart failure with preserved ejection fraction (HFpEF) Hypomagnesemia Acute on chronic renal failure Essential hypertension HLD (hyperlipidemia) Non-ST elevated myocardial infarction Diabetes mellitus Nonischemic cardiomyopathy Irritable bowel syndrome with diarrhea Gastroparesis GERD (gastroesophageal reflux disease) Surgical History Status post amputation of finger H/O surgical amputation of finger History of laparoscopic cholecystectomy History of intestinal surgery Hx of eye surgery History of esophagogastroduodenoscopy (EGD) Hx of colonoscopy H/O: hysterectomy Family History Family History Father Lung cancer Mother Diabetes HTN (hypertension) Heart disease Sister Diabetes Heart disease Brother Heart disease Son Diabetes Daughter Diabetes Social History Social History Household Members: Children Household Members Other:: daughter and grandson Housing: House Do you presently have visiting nurse or other home services: No (considering her grandson to be MEDICAL RECORDS ASSISTANT) Unable to assess alcohol history related to: Unable to respond and Unknown Alcohol intake: never Comment: camera in place Patient Tobacco Use Status: Never used Tobacco e-Cigarette/Vaping Use: Never Used Second Hand Smoke Exposure: No Advance Directives: Yes Advance Directives on File: Yes Advance Directives Date on File: 01/04/23 service: No Current occupational status: disabled Physical Exam ED Vital Signs: Vital Signs - 24 hr 07/05/24 06:12 07/05/24 08:25 Temperature 98.0 F Pulse Rate 73 Respiratory Rate 14 16 Blood Pressure 199/85 H Oxygen Delivery Method Room Air Oxygen Flow Rate 96 BMI result Body Mass Index 31.9 Course Course Course Narrative: Patient underwent CT scan and labs which were all unremarkable I do not have reason to keep the patient here I will discharge home she is supposed to get dialysis today anyways. Medical Decision Making Lab Data 07/05/24 07:31 07/05/24 07:31 Labs: Lab Results 07/05/24 07/05/24 Range/Units 07:31 07:37 WBC 8.0 (4.8-10.8) X10*3/uL RBC 4.59 (4.20-5.50) X10*6/uL Hgb 12.0 (12.0-16.0) g/dl Hct 38.1 (37.0-47.0) % MCV 83.0 (80.0-98.0) fL MCH 26.1 L (27.0-33.0) pg MCHC 31.5 (31.0-35.0) g/dl RDW 15.9 (11.0-16.0) % Plt Count 132 L (160-400) X10*3/uL MPV 11.0 (9.4-12.3) fL Immature Gran % (Auto) 0.3 (0.0-0.4) % Neut % (Auto) 76.8 H (45-73) % Lymph % (Auto) 13.4 L (20-40) % [place] % (Auto) 7.8 (2-11) % Eos % (Auto) 1.3 (0-4) % Baso % (Auto) 0.4 (0-2) % Lymph # (Auto) 1.1 L (1.2-4.9) X10*3/uL [place] # (Auto) 0.6 (0.1-1.2) X10*3/uL Eos # (Auto) 0.1 (0.0-0.4) X10*3/uL Baso # (Auto) 0.0 (0.0-0.2) X10*3/uL Abs Immat Gran (auto) 0.02 (0.00-0.03) X10*3/uL Absolute Neuts (auto) 6.2 (2.0-8.3) x10*3/uL Absolute Nucleated RBC 0.000 (0.0-0.012) X10*3/uL Nucleated RBC % (auto) 0.0 (0.0-0.2) /100WBC VBG pH 7.48 H (7.32-7.43) VBG pCO2 50 mmHg VBG pO2 38 mmHg VBG HCO3 38 H (22-26) mmol/L VBG O2 Saturation 59.0 % VBG Base Excess 12.9 mmol/L Sodium 137 (135-145) mmol/L Potassium 4.3 (3.3-5.1) mmol/L Chloride 99 (96-108) mmol/L Carbon Dioxide 30 H (22-29) mmol/L Anion Gap 12 (12-20) BUN 29 H (9-16) mg/dL Creatinine 2.86 H (0.5-1.4) mg/dL Estim Creat Clear Calc 15.5 Estimated GFR 16 Random Glucose 242 H (60-115) mg/dL Calcium 8.6 (8.4-10.2) mg/dL Total Bilirubin 0.3 (0.0-1.0) mg/dL Direct Bilirubin 0.2 (0.0-0.5) mg/dL AST 19 (5-31) U/L ALT 12 (0-31) U/L Alkaline Phosphatase 218 H (39-117) U/L Total Protein 7.2 (6.5-8.0) g/dL Albumin 3.2 L (3.5-5.0) g/dL Lipase 21 (8-78) U/L Beta-Hydroxybutyrate 0.07 (0.02-0.27) mmol/L Medications Administered Discontinued Medications Generic Name Dose Route Start Last Admin Trade Name Freq PRN Reason Stop Dose Admin Sodium Chloride 1,000 mls @ 999 mls/hr 07/05/24 07:15 07/05/24 08:25 Ns IV 07/05/24 08:15 999 mls/hr .Q1H1M MATTY Administration Morphine Sulfate 4 mg 07/05/24 07:07 07/05/24 08:25 Morphine Sulfate 4 Mg/Ml Cartridge IVPUSH 07/05/24 07:08 4 mg ONCE ONE Administration Protocol Discharge Plan Discharge Clinical Impression: Abdominal pain Patient Disposition: Home, Self-Care Instructions: Abdominal Pain (ED) Additional Instructions: You were seen today for abdominal pain. You had a CT scan labs done which were all unremarkable. Please call follow up with your doctor. Prescriptions: No Action atorvastatin 80 mg tablet 80 mg PO BEDTIME clopidogrel 75 mg tablet 75 mg PO DAILY aspirin 81 mg tablet,delayed release (DR/EC) 81 mg PO BEDTIME magnesium oxide 400 mg (241.3 mg magnesium) tablet 400 mg PO DAILY sevelamer carbonate 800 mg tablet 800 mg PO TIDWM carvedilol 12.5 mg Tablet 12.5 mg PO BIDWM Qty: 60 1RF Protocol: Hold for SBP/HR < HOLD for SBP < : 90 HOLD for HR < : 60 acetaminophen 325 mg capsule 650 mg PO Q6H PRN (Reason: pain) Qty: 20 0RF melatonin 5 mg tablet 5 - 10 mg PO BEDTIME PRN (Reason: Sleep) cholecalciferol (vitamin D3) 1,250 mcg (50,000 unit) capsule 1,250 mcg PO WEN pantoprazole 40 mg tablet,delayed release (DR/EC) 40 mg PO DAILY@0630 Rx Instructions: take one tablet half an hour before breakfast albuterol sulfate 90 mcg/actuation aerosol powdr breath activated 2 inh inhalation Q6H PRN (Reason: shortness of breath or wheezing) insulin glargine [Lantus Solostar U-100 Insulin] 100 unit/mL (3 mL) insulin pen 20 unit subcut DAILY vancomycin in 0.9 % sodium chl 500 mg/100 mL piggyback 500 mg IV .MWF Rx Instructions: WITH hd cefuroxime axetil 250 mg tablet 250 mg PO BID Qty: 14 0RF sennosides [Natural Senna Laxative] 8.6 mg tablet 17.2 mg PO BEDTIME Qty: 60 3RF (DME) lancets [OneTouch Delica Plus Lancet] 33 gauge misc See Rx Instructions .ROUTE TID Qty: 100 Rx Instructions: As directed (DME) pen needle, diabetic [Pentips] 32 gauge x 5/32 needle See Rx Instructions .ROUTE DIRECTED Qty: 1200 Rx Instructions: As directed (DME) OneTouch Ultra Test Strip See Rx Instructions .ROUTE TID Qty: 10 Rx Instructions: As directed insulin aspart U-100 [Novolog FlexPen U-100 Insulin] 100 unit/mL (3 mL) insulin pen See Protocol subcut NEEDED PRN (Reason: bs >200) Protocol: Insulin Correction Scale Less than or equal to 110 ---- Give (units): 0 111 to 150 Give (units): 0 151 to 200 Give (units): 2 201 to 250 Give (units): 4 251 to 300 Give (units): 6 301 to 350 Give (units): 8 Greater than 350 Give (units): 10 Call MD if Blood Glucose > : 350 Rx Instructions: 8-12 units SLIDING SCALE Print Language: [place]
--- NOTE | 2024-07-05 07:07 | ECG_ITS ---
Test Reason : ABD PAIN Blood Pressure : / mmHG Vent. Rate : 073 BPM Atrial Rate : 073 BPM P-R Int : 136 ms QRS Dur : 140 ms QT Int : 456 ms P-R-T Axes : 035 016 012 degrees QTc Int : 502 ms Sinus rhythm with occasional Premature ventricular complexes Left ventricular hypertrophy with QRS widening and repolarization abnormality ( Heriberto product ) Abnormal ECG When compared with ECG of 25-MAY-2024 21:44, Premature ventricular complexes are now Present Referred By: Fransisco Cadena Electronically Signed By:KALANI TOLEDO
--- NOTE | 2024-07-05 07:30 | PC.NURSE ---
Unable to gain IV access- second RN attempting
--- NOTE | 2024-07-05 07:31 | PC.NURSE ---
Labs collected and sent as ordered
[2024-07-05 07:37] LABS: MANUAL DIFF FLAG NO
[2024-07-05 07:41] LABS: VBG Base Excess 12.9 mmol/L; VBG HCO3 38 mmol/L (22-26); VBG pCO2 50 mmHg; VBG pH 7.48 (7.32-7.43); VBG pO2 38 mmHg
[2024-07-05 07:41] LABS: Basophils Percent Auto 0.4 % (0-2); Eosinophils Absolute Auto 0.1 X10*3/uL (0.0-0.4); Eosinophils Percent Auto 1.3 % (0-4); Hematocrit 38.1 % (37.0-47.0); Imm Gran Abs Auto 0.02 X10*3/uL (0.00-0.03); Imm Gran Pct Auto 0.3 % (0.0-0.4); Lymphocytes Absolute Auto 1.1 X10*3/uL (1.2-4.9); Lymphocytes Percent Auto 13.4 % (20-40); Mean Corpuscular HGB Conc 31.5 g/dl (31.0-35.0); Mean Corpuscular Hemoglobin 26.1 pg (27.0-33.0); Monocytes Absolute Auto 0.6 X10*3/uL (0.1-1.2); Monocytes Percent Auto 7.8 % (2-11); Neutrophils Absolute Auto 6.2 x10*3/uL (2.0-8.3); Neutrophils Percent Auto 76.8 % (45-73); Platelet Count 132 X10*3/uL (160-400); Red Blood Count 4.59 X10*6/uL (4.20-5.50); Red Cell Distribution Width 15.9 % (11.0-16.0)
[2024-07-05 07:51] LABS: Venous Blood Gas Refer to POC result
[2024-07-05 07:58] LABS: Alanine Aminotransferase 12 U/L (0-31); Albumin Level 3.2 g/dL (3.5-5.0); Alkaline Phosphatase 218 U/L (39-117); Anion Gap 12 (12-20); Aspartate Amino Transferase 19 U/L (5-31); Bilirubin Direct 0.2 mg/dL (0.0-0.5); Bilirubin Total 0.3 mg/dL (0.0-1.0); Blood Urea Nitrogen 29 mg/dL (9-16); Calcium 8.6 mg/dL (8.4-10.2); Carbon Dioxide 30 mmol/L (22-29); Chloride 99 mmol/L (96-108); Creatinine Clr Calc Pharmacy 15.5; Estimated Glomerular Filt Rate 16; Glucose Random 242 mg/dL (60-115); Lipase 21 U/L (8-78); Potassium 4.3 mmol/L (3.3-5.1); Sodium 137 mmol/L (135-145); Total Protein 7.2 g/dL (6.5-8.0)
[2024-07-05 08:00] LABS: Beta-Hydroxybutyrate 0.07 mmol/L (0.02-0.27)
[2024-07-05 08:25] VITALS: RESP 16
[2024-07-05] MEDS: 0.9 % Sodium Chloride 1,000 ML 999 ML IV (08:25)
[2024-07-05] MEDS: Morphine Sulfate 4 MG/ML CARTRIDGE IVPUSH (08:25)
--- NOTE | 2024-07-05 08:28 | PC.NURSE ---
Pt. medicated per NOV.
--- NOTE | 2024-07-05 10:39 | PC.NURSE ---
Pt. is up for discharge. Coordinating ride home.
--- NOTE | 2024-07-05 10:51 | PC.NURSE ---
Attempt to call pt.'s daughter for ride home. Daughter answered phone then hung up.
[2024-07-05 14:40] VITALS: BP 153/62; PULSE 61; RESP 16; TEMP 36.6; O2SAT 96
[2024-07-05 16:35] LABS: Glucose, Whole Blood 252 mg/dL (60-115)
== END 2024-07-05 14:40 | disposition home or self-care (01) ==
PROVIDERS: Emergency Provider Student in an Organized Health Care Education/Training Program; PCP Internal Medicine
DX: R10.9 Unspecified abdominal pain (principal); E11.22 Type 2 diabetes mellitus with diabetic chronic kidney disease; I13.2 Hypertensive heart and chronic kidney disease with heart failure and with stage 5 chronic kidney disease, or end stage renal disease; N18.6 End stage renal disease; I50.9 Heart failure, unspecified; Z99.2 Dependence on renal dialysis; E78.5 Hyperlipidemia, unspecified; R33.9 Retention of urine, unspecified; Z79.82 Long term (current) use of aspirin; Z79.02 Long term (current) use of antithrombotics/antiplatelets; Z79.4 Long term (current) use of insulin; Z79.899 Other long term (current) drug therapy
CPT/HCPCS: 36415; 51798; 74176; 80048; 80076; 82010; 82803; 82947; 83690; 85025; 93005; 96361; 96374; 99284; J2270

== ENCOUNTER 2024-07-28 11:39 | Inpatient (IN) | payer OTHER, SELFPAY ==
[2024-07-28 11:48] VITALS: BP 176/119; PULSE 71; RESP 18; TEMP 36.5; O2SAT 93; BMI 20.2
--- NOTE | 2024-07-28 12:01 | PC.NURSE ---
Pt given bed bath. Was not very dirty. Good skin integrity with exception of small wound tip of stump. Pt left in position of comfort with BLE elevated.
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
[2024-07-28 13:09] LABS: Alanine Aminotransferase 9 U/L (0-31); Albumin Level 3.1 g/dL (3.5-5.0); Alkaline Phosphatase 223 U/L (39-117); Anion Gap 13 (12-20); Aspartate Amino Transferase 19 U/L (5-31); Bilirubin Total 0.4 mg/dL (0.0-1.0); Blood Urea Nitrogen 28 mg/dL (9-16); Calcium 8.5 mg/dL (8.4-10.2); Carbon Dioxide 29 mmol/L (22-29); Chloride 97 mmol/L (96-108); Estimated Glomerular Filt Rate 14; Glucose Random 357 mg/dL (60-115); Magnesium 1.7 mg/dL (1.6-2.6); Potassium 4.3 mmol/L (3.3-5.1); Sodium 135 mmol/L (135-145); Total Protein 6.8 g/dL (6.5-8.0)
[2024-07-28 13:17] LABS: Basophils Absolute Auto 0.1 X10*3/uL (0.0-0.2); Basophils Percent Auto 0.7 % (0-2); Eosinophils Absolute Auto 0.1 X10*3/uL (0.0-0.4); Eosinophils Percent Auto 1.3 % (0-4); Hematocrit 37.6 % (37.0-47.0); Hemoglobin 11.8 g/dl (12.0-16.0); Imm Gran Abs Auto 0.05 X10*3/uL (0.00-0.03); Imm Gran Pct Auto 0.5 % (0.0-0.4); Lymphocytes Absolute Auto 1.1 X10*3/uL (1.2-4.9); Lymphocytes Percent Auto 11.1 % (20-40); MANUAL DIFF FLAG SCAN; Mean Corpuscular HGB Conc 31.4 g/dl (31.0-35.0); Mean Corpuscular Hemoglobin 26.8 pg (27.0-33.0); Mean Corpuscular Volume 85.3 fL (80.0-98.0); Monocytes Absolute Auto 0.7 X10*3/uL (0.1-1.2); Neutrophils Absolute Auto 7.6 x10*3/uL (2.0-8.3); Neutrophils Percent Auto 79.4 % (45-73); PLT CLUMP 1; Red Blood Count 4.41 X10*6/uL (4.20-5.50); Red Cell Distribution Width 15.9 % (11.0-16.0); SCAN SMEAR FLAG 1
[2024-07-28 13:18] LABS: White Blood Count 9.5 X10*3/uL (4.8-10.8)
[2024-07-28] MEDS: Insulin Lispro 100 UNIT/ML 3 ML VIAL SUBCUT ×2 (13:41→22:06)
[2024-07-28 13:46] LABS: Platelet Count 114 X10*3/uL (160-400); SLIDE REVIEW VERIFIED
[2024-07-28 14:35] VITALS: BP 149/69; PULSE 70; RESP 18; TEMP 36.6; O2SAT 99
[2024-07-28 18:03] VITALS: BP 151/62; PULSE 74; RESP 18; TEMP 36.5; O2SAT 98
[2024-07-28 18:54] LABS: Glucose, Whole Blood 117 mg/dL (60-115)
--- NOTE | 2024-07-28 19:10 | PC.NURSE ---
Report from Ignacia Henriquez Rn, assume care of pt at this time, pt moved to Overflow 3
--- NOTE | 2024-07-28 19:50 | MHC.EDTECH ---
This tech assumed care of patient at 1900, patient moved from the main ED to overflow,rounded and introduced self to patient,patient ambulated with a steady gait to the bathroom, gingerale, elsa crackers and peanut butter were giving at this time per request,call peck within reach
--- NOTE | 2024-07-28 19:58 | MHC.EDTECH ---
This tech assumed care of patient at 1900,patient moved from the main ED to overflow,rounded and introduced self to patient. Patient placed in hospital bed and repositioned to comfort,pillows placed under right leg/under both arms,call peck in reach
--- NOTE | 2024-07-28 21:00 | MHC.EDTECH ---
POC taken and is 186,RN Katie made aware
[2024-07-28 21:24] VITALS: BP 149/65; PULSE 68; RESP 16; TEMP 36.6; O2SAT 95
--- NOTE | 2024-07-28 21:24 | MHC.EDTECH ---
Rounds/vitals completed,patient got up with a 1 assist to commode,had a small amount of hard brown stool, small amount of urine, parker-care given, pt was a 2/assist to get off commode,call peck in reach
[2024-07-28] MEDS: Acetaminophen 325 MG TABLET 975 MG PO (23:16)
--- NOTE | 2024-07-29 00:03 | PC.NURSE ---
resting quietly, with eyes closed, resp with ease, cont plan of care
[2024-07-29 01:02] LABS: Glucose, Whole Blood 186 mg/dL (60-115)
--- NOTE | 2024-07-29 03:47 | PC.NURSE ---
resting quietly in bed, with eyes closed, resp with ease, no s/s of acute distress, will cont plan of care
[2024-07-29 05:51] VITALS: BP 186/77; PULSE 65; RESP 18; TEMP 36.5; O2SAT 95
[2024-07-29] MEDS: Acetaminophen 325 MG TABLET 975 MG PO (06:09)
[2024-07-29] MEDS: Pantoprazole Sodium 20 MG TABLET.DR 40 MG PO (06:09)
[2024-07-29 07:45] LABS: Glucose, Whole Blood 90 mg/dL (60-115)
--- NOTE | 2024-07-29 07:48 | MHC.EDTECH ---
POC:90 @ 7:40 Kimberly (DONNIE) aware
[2024-07-29] MEDS: Sevelamer Carbonate Tablet 800 MG TABLET PO ×3 (08:08→16:45)
[2024-07-29 08:09] VITALS: BP 165/62; PULSE 68
[2024-07-29] MEDS: carvediloL 12.5 MG TABLET PO ×2 (08:09→16:45)
[2024-07-29] MEDS: Magnesium Oxide 400 MG TABLET PO (08:09)
[2024-07-29] MEDS: Clopidogrel Bisulfate 75 MG TABLET PO (08:09)
--- NOTE | 2024-07-29 08:41 | PC.NURSE ---
Called [facility] in [place] and confirmed pt is scheduled for dialysis M/W/, she is due today at 11AM, last dialysis was last Monday. Spoke to president practicing urologist, provider and CM about next steps in getting pt dialysis.
--- NOTE | 2024-07-29 09:22 | PC.NURSE ---
Plan for dialysis: CM attempting to get pt accepted at [facility] where she also gets dialysis and plan to have her dialysis today. If unable to get bed, pt will be admitted and receive diaylsis here at hospital per provider.
[2024-07-29 09:43] LABS: COVID-19 Test Negative (Negative); IDNOW Serial# 152EDE1D
--- NOTE | 2024-07-29 10:11 | PC.NURSE ---
Pt woke up this morning, ate breakfast and took morning meds with no issues. Denied any complaints. Pt is now resting in chair, watching TV, intermittent sleeping
--- NOTE | 2024-07-29 10:17 | MHC.CM.ED ---
Addendum entered by Robyn Kendall 07/29/24 13:04: [facility] is able to offer a bed. Met with patient. Patient accepts bed. [place] has asked to obtain insurance auth. Original Note: Received case management consult over night. Patient came to the ER d/t wellness check . Patient's neighbor called EMS and patient was brought to the ER. Patient reported to ER staff that her doesn't isn't taking care of her. Patient receives dialysis at [facility] in [place]. Per Kimberly at [facility], patient herself is compliant with dialysis. When patient has missed HD, they have tried to call the patient and her daughter without a response. They have had to call PD to complete a wellness check. Daughter states to facility that the patient didn't want to go. Patient reports to facility that her daughter didn't have her ready in time. Patient's chair time is 1030 on Monday, and Monday. Patient did go to HD on Thursday 07/26. Patient is agreeable to STR at [facility]. However they do not have a bed. Referral made to [facility]. Continue to monitor for d/c needs.
[2024-07-29 11:44] LABS: Glucose, Whole Blood 216 mg/dL (60-115)
[2024-07-29] MEDS: Insulin Lispro 100 UNIT/ML 3 ML VIAL SUBCUT ×3 (11:44→21:04)
--- NOTE | 2024-07-29 12:04 | MHC.EDTECH ---
POC:216 @ 6729 she is eating lunch now after the RN gave her meds.
--- NOTE | 2024-07-29 12:53 | PC.NURSE ---
Patient up to commode to have a bowel movement.
[2024-07-29] MEDS: Loperamide HCl 2 MG CAPSULE PO (14:32)
[2024-07-29 14:33] VITALS: BP 155/65; PULSE 67; RESP 18; TEMP 36.6; O2SAT 95
--- NOTE | 2024-07-29 16:06 | PC.NURSE ---
Plan per provider and CM: unable to get pt to STR w/ dialysis today. Provider will have labs rechecked and decide tomorrow about plan of pt going to dialysis or getting admitted for diaylsis her at [facility]
[2024-07-29 16:41] LABS: Glucose, Whole Blood 180 mg/dL (60-115)
[2024-07-29 16:45] VITALS: BP 143/65; PULSE 65
--- NOTE | 2024-07-29 20:03 | MHC.EDTECH ---
This pct assumed care of Patient at 1910 ,Patient sitting in bed ,Bed alarm was turn on my this Pct .
[2024-07-29 20:28] VITALS: BP 148/76; PULSE 63; RESP 16; TEMP 36.6; O2SAT 95
--- NOTE | 2024-07-29 20:29 | MHC.EDTECH ---
Patient was incontinent of small bowel movement ,care given and Patient was reposition and boosted up in bed ,vitals taken and blood sugar check ,All safety measure in Place .
[2024-07-29 20:36] LABS: Glucose, Whole Blood 205 mg/dL (60-115)
[2024-07-29] MEDS: Aspirin Enteric Coated 81 MG TABLET.DR PO (21:05)
[2024-07-29] MEDS: Atorvastatin Calcium 80 MG TABLET PO (21:05)
--- NOTE | 2024-07-29 21:51 | MHC.EDTECH ---
Patient was a max assist of 2 to bedside commode ,void ,small amount of stool ,care given and back to bed ,all safety measure in Place .
--- NOTE | 2024-07-30 | PC.NURSE ---
This flex o writer operator assumed care of this Pt 2300. Pt restless and confused at times states I can't sleep, that man over there needs air, we are all going to . Pt reassured and redirected.
--- NOTE | 2024-07-30 01:30 | PC.NURSE ---
Pt two assist to bedside commode.
[2024-07-30 06:00] VITALS: BP 187/83; PULSE 62; RESP 17; TEMP 36.4; O2SAT 92
[2024-07-30] MEDS: Pantoprazole Sodium 20 MG TABLET.DR 40 MG PO (06:08)
[2024-07-30 07:31] LABS: Glucose, Whole Blood 180 mg/dL (60-115)
[2024-07-30] MEDS: Insulin Lispro 100 UNIT/ML 3 ML VIAL SUBCUT ×4 (07:47→20:42)
[2024-07-30 08:28] VITALS: BP 176/73; PULSE 63; RESP 16; TEMP 36.4; O2SAT 96
[2024-07-30] MEDS: carvediloL 12.5 MG TABLET PO ×2 (08:32→16:38)
[2024-07-30] MEDS: Magnesium Oxide 400 MG TABLET PO (08:32)
[2024-07-30] MEDS: Sevelamer Carbonate Tablet 800 MG TABLET PO ×3 (08:32→16:38)
[2024-07-30] MEDS: Clopidogrel Bisulfate 75 MG TABLET PO (08:32)
--- NOTE | 2024-07-30 08:38 | PHA.MEDREC ---
Addendum entered by Rebeca Shaikh [facility] 07/30/24 08:51: went down with caddymaster, patient stated their doctor cancelled their lantus. Original Note: Pharmacy Consult ? Medication Reconciliation Pharmacy has reviewed the medication reconciliation. RN had done med rec, all medications match claims. RN left lantus unconfirmed.. last filled was 05/27/24 with everything being much more recent.
--- NOTE | 2024-07-30 09:40 | MHC.CM.ED ---
Addendum entered by Robyn Kendall 07/30/24 14:11: Labs received from [facility] dialysis. Sent to [facility]. Original Note: Patient remains in ER overflow. Waiting for insurance auth for [facility]. Copy of HCP [facility] from [facility]. [facility] will fax this info. Continue to monitor for d/c needs.
--- NOTE | 2024-07-30 10:01 | PC.NURSE ---
assumed care of patient at 0700, patient resting quietly. patient medicated per NOV, ate breakfast this morning. patient was assisted to commode with 2 assist. patient now sitting up in recliner. VSS
[2024-07-30 11:19] LABS: Glucose, Whole Blood 200 mg/dL (60-115)
[2024-07-30 13:43] VITALS: BP 148/64; PULSE 63; RESP 18; TEMP 36.6; O2SAT 95
[2024-07-30 15:58] LABS: Glucose, Whole Blood 191 mg/dL (60-115)
[2024-07-30 16:28] VITALS: BP 153/68; PULSE 60; RESP 17; TEMP 36.4; O2SAT 95
[2024-07-30] MEDS: Aspirin Enteric Coated 81 MG TABLET.DR PO (20:42)
[2024-07-30] MEDS: Atorvastatin Calcium 80 MG TABLET PO (20:42)
[2024-07-30 20:59] VITALS: BP 105/64; PULSE 61; RESP 20; O2SAT 95
[2024-07-30 20:59] LABS: Glucose, Whole Blood 164 mg/dL (60-115)
[2024-07-30] MEDS: traZODone HCL 50 MG TABLET PO (23:25)
--- NOTE | 2024-07-31 02:48 | PC.NURSE ---
Dr cleaning notified of pt's extreme restless and 7/10 pain. No new orders placed at this time
--- NOTE | 2024-07-31 03:37 | PC.NURSE ---
pt requested and provided crackers and gingerale in hopes of helping her sleep. Tw continues to await orders
[2024-07-31] MEDS: OLANZapine 10 MG TABLET PO (03:49)
[2024-07-31] MEDS: Acetaminophen 325 MG TABLET 975 MG PO (03:49)
[2024-07-31 05:32] VITALS: BP 152/68; PULSE 60; RESP 18; TEMP 36.1; O2SAT 93
[2024-07-31] MEDS: Pantoprazole Sodium 20 MG TABLET.DR 40 MG PO (06:38)
--- NOTE | 2024-07-31 06:39 | PC.NURSE ---
late entry: pt restless throughout much of shift. states she is in pain neck and wants tt be able to sleep. pt tearful at times. PT medicated on 2 separate occasions with pain meds and/or medication to help with restless. PT only able to rest for 20-30 minutes at a time. wakes crying out help me . Pt not able to get comfortable in bed. PT also reported she is unable to breathe. Lung sounds clear bilaterally o2 100% on ra
[2024-07-31 07:28] LABS: Glucose, Whole Blood 117 mg/dL (60-115)
[2024-07-31] MEDS: Clopidogrel Bisulfate 75 MG TABLET PO (08:31)
[2024-07-31] MEDS: Magnesium Oxide 400 MG TABLET PO (08:31)
[2024-07-31] MEDS: Sevelamer Carbonate Tablet 800 MG TABLET PO ×3 (08:31→17:27)
[2024-07-31] MEDS: carvediloL 12.5 MG TABLET PO ×2 (08:31→17:27)
--- NOTE | 2024-07-31 08:31 | MHC.EDTECH ---
patient was assisted to commode, x2. Patient had a small bowel movement and urinated. pts urine is very strong smelling and cloudy. Rn aware
--- NOTE | 2024-07-31 09:48 | PC.NURSE ---
Pt consumed all of breakfast. pt is very restless, yelling out, rolling around in bed. assisted to chair and commode multiple times.
[2024-07-31] MEDS: Insulin Lispro 100 UNIT/ML 3 ML VIAL SUBCUT ×2 (11:31→21:59)
[2024-07-31 11:33] LABS: Glucose, Whole Blood 153 mg/dL (60-115)
--- NOTE | 2024-07-31 13:43 | MHC.CM.ED ---
Insurance auth has been obtained by [employer]. Patient can leave at 4pm. Ira RIVERS booked. Med nec with chart. Patient, Rola FIELDS and Sruthi GARCIA aware. Continue to monitor for d/c needs.
[2024-07-31 13:58] VITALS: BP 163/72; PULSE 56; RESP 20; TEMP 36.8; O2SAT 96
--- NOTE | 2024-07-31 14:05 | PC.NURSE ---
Pt informed of discharge plan with wire harness assembler present.
--- NOTE | 2024-07-31 14:05 | PC.NURSE ---
JOSE langston aware that pt has not been dialyzed since Monday, JOSE states pt is to be set up for outpatient dialysis on dc.
--- NOTE | 2024-07-31 14:37 | PC.NURSE ---
Labs drawn and sent
[2024-07-31 14:42] LABS: MANUAL DIFF FLAG NO
[2024-07-31 14:50] LABS: Basophils Percent Auto 0.5 % (0-2); Eosinophils Absolute Auto 0.2 X10*3/uL (0.0-0.4); Eosinophils Percent Auto 2.4 % (0-4); Hematocrit 35.6 % (37.0-47.0); Hemoglobin 11.4 g/dl (12.0-16.0); Imm Gran Abs Auto 0.04 X10*3/uL (0.00-0.03); Imm Gran Pct Auto 0.5 % (0.0-0.4); Lymphocytes Absolute Auto 1.2 X10*3/uL (1.2-4.9); Lymphocytes Percent Auto 15.7 % (20-40); Mean Corpuscular Hemoglobin 27.1 pg (27.0-33.0); Mean Corpuscular Volume 84.6 fL (80.0-98.0); Mean Platelet Volume 11.4 fL (9.4-12.3); Monocytes Absolute Auto 0.6 X10*3/uL (0.1-1.2); Monocytes Percent Auto 8.3 % (2-11); Neutrophils Absolute Auto 5.5 x10*3/uL (2.0-8.3); Neutrophils Percent Auto 72.6 % (45-73); Platelet Count 176 X10*3/uL (160-400); Red Blood Count 4.21 X10*6/uL (4.20-5.50); Red Cell Distribution Width 16.5 % (11.0-16.0); White Blood Count 7.6 X10*3/uL (4.8-10.8)
--- NOTE | 2024-07-31 15:40 | PC.NURSE ---
Phlebotomy at bedside obtaining ordered labs at this time. Awaiting transport/transfer to [facility].
--- NOTE | 2024-07-31 16:00 | PC.NURSE ---
Spoke with Giulia ([facility] lab staff member), who reports that the recollected specimen drawn by courtesy bus driver has also hemolyzed. This RN notified JOSE Barajas of this. Original anticipated EMS arrival was 4pm today. However, these labs are essential due to dialysis needs. Lab aware that the chemistry lab draw is needed prior to transfer to [facility]. EMS being notified by ED Cell Builder at this time to delay arrival pending lab results, as instructed by JOSE Beyer.
--- NOTE | 2024-07-31 16:35 | PC.NURSE ---
Recollect order by Kadi Crawford NP. JOSE Beyer signed out to ANIBAL Crawford. The latest specimen that was drawn by phlebotomy hemolyzed (3+) per Giulia (lab department). Provider wants non-hemolyzed specimen to be drawn for accurate results prior to transfer to [facility]. Lab department notified. Phlebotomy to redraw chemistry bloodwork.
[2024-07-31 16:46] LABS: Glucose, Whole Blood 132 mg/dL (60-115)
--- NOTE | 2024-07-31 17:48 | PC.NURSE ---
Labs recollected. Results pending.
--- NOTE | 2024-07-31 17:58 | ECG_ITS ---
Test Reason : HYPERKALEMIA Blood Pressure : / mmHG Vent. Rate : 055 BPM Atrial Rate : 055 BPM P-R Int : 198 ms QRS Dur : 144 ms QT Int : 532 ms P-R-T Axes : 043 -48 207 degrees QTc Int : 508 ms Sinus bradycardia Left axis deviation Non-specific intra-ventricular conduction block Possible Lateral infarct , age undetermined T wave abnormality, consider inferior ischemia Abnormal ECG When compared with ECG of 05-JUL-2024 07:47, Premature ventricular complexes are no longer Present Borderline criteria for Lateral infarct are now Present T wave inversion less evident in Lateral leads Referred By: Kadi Crawford Electronically Signed By:MYESHA FREY
[2024-07-31 17:59] LABS: Potassium 6.9 mmol/L (3.3-5.1)
--- NOTE | 2024-07-31 18:11 | PC.NURSE ---
Sunni (assembly machine feeder) at bedside obtaining EKG due to hyperkalemia 6.9. Ordered by NP. Yvette
--- NOTE | 2024-07-31 18:25 | PC.NURSE ---
Report given to Sharlene FIELDS. Transferred to ED 5 for cardiac monitoring/further care.
[2024-07-31 18:28] LABS: Alanine Aminotransferase 13 U/L (0-31); Albumin Level 3.3 g/dL (3.5-5.0); Alkaline Phosphatase 247 U/L (39-117); Anion Gap 19 (12-20); Aspartate Amino Transferase 23 U/L (5-31); Bilirubin Total 0.4 mg/dL (0.0-1.0); Blood Urea Nitrogen 52 mg/dL (9-16); Calcium 8.3 mg/dL (8.4-10.2); Carbon Dioxide 24 mmol/L (22-29); Chloride 96 mmol/L (96-108); Creatinine Clr Calc Pharmacy 9.9; Estimated Glomerular Filt Rate 9; Glucose Random 141 mg/dL (60-115); Magnesium 2.3 mg/dL (1.6-2.6); Sodium 132 mmol/L (135-145); Total Protein 7.3 g/dL (6.5-8.0)
--- NOTE | 2024-07-31 18:32 | PC.NURSE ---
Pt is returned from overflow unit for elevated potassium. Pt is alert and resting quietly on hospital bed. Pt placed on cardiac monitoring. Pt offers no complaints at this time.
--- NOTE | 2024-07-31 19:07 | MHC.EDTECH ---
pt stating having back discomfort. coccxy is visibly sore with redness, no open lesions, pillow placed behind, pt laying left lateral, RN made aware.
[2024-07-31] MEDS: Sodium Zirconium Cyclosilicate 10 GM POWD.PACK PO (19:16)
[2024-07-31] MEDS: Insulin Regular, Human 100 UNIT/ML 10 ML VIAL IVPUSH (19:16)
[2024-07-31 19:18] LABS: Glucose, Whole Blood 156 mg/dL (60-115)
[2024-07-31] MEDS: Dextrose 10 % 250 ML 750 ML IV (19:19)
--- NOTE | 2024-07-31 19:40 | PC.NURSE ---
20 G IV line established in R AC, patient medicated per MAR
[2024-07-31 20:04] VITALS: BP 95/72; PULSE 64; RESP 22; TEMP 36.4; O2SAT 92
--- NOTE | 2024-07-31 20:07 | MHC.CM.ED ---
Addendum entered by Cleopatra Padilla 07/31/24 22:15: Pt will be admitted for emergent dialysis tonight. BLS transport cancelled. Facility made aware of admission for emergent dialysis tonight and requested them to follow via [facility]. Original Note: CM was notified at 1630 that pt potassium was 8, but it was hemolized. Will need to be re-drawn. Provider [facility] CM called [facility]. Requested BLS transport be placed on hold. CM attempted to call facility x 2. Unable to speak with anyone, went to voice mail. CM did alert facility via [facility] Port. At 1800, CM notified that potassium was elevated and patient needed an EKG. Pt moved to monitored bed. Per provider, considering admission. CM will follow.
[2024-07-31 20:15] LABS: Glucose, Whole Blood 239 mg/dL (60-115)
[2024-07-31 21:31] LABS: Glucose, Whole Blood 160 mg/dL (60-115)
--- NOTE | 2024-07-31 21:54 | PC.NURSE ---
Nurse to nurse report given to Debbie at [facility] dialysis, plan t medicate patient at ED with scheduled medications and sent her upstairs to dialysis.
[2024-07-31] MEDS: Aspirin Enteric Coated 81 MG TABLET.DR PO (22:00)
[2024-07-31] MEDS: Atorvastatin Calcium 80 MG TABLET PO (22:00)
[2024-07-31] MEDS: Calcium Gluconate/NaCl,Iso-Osm 2 GM/100 ML PLAST..BAG IV (22:00)
[2024-07-31 22:07] VITALS: BP 176/62; PULSE 58; RESP 22; TEMP 36.6; O2SAT 94
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
[2024-08-01] VITALS: BP 144/78; PULSE 68; RESP 20; TEMP 36.1; O2SAT 92
[2024-08-01 01:36] VITALS: BMI 21.5
[2024-08-01 03:31] VITALS: BP 144/6; PULSE 66; RESP 20; TEMP 36.2; O2SAT 91
[2024-08-01 03:46] LABS: Anion Gap 21 (12-20); Blood Urea Nitrogen 33 mg/dL (9-16); Calcium 8.6 mg/dL (8.4-10.2); Carbon Dioxide 19 mmol/L (22-29); Chloride 99 mmol/L (96-108); Creatinine Clr Calc Pharmacy 16.7; Estimated Glomerular Filt Rate 15; Glucose Random 91 mg/dL (60-115); Phosphorus 3.6 mg/dL (2.7-4.5); Sodium 134 mmol/L (135-145)
--- NOTE | 2024-08-01 04:13 | PC.NURSE ---
ADMIT TO 457-1 POST-HEMODYALYSIS...TARGETING ACQUISITION OFFICER STATED 2 HOUR RUN AND 2 KG FLUID REMOVED..PLAN FOR REPEAT DIALYSIS IN AM...AWAKE..ALERT..ORIENTED X3..RESPIRATIONS EASY...NSR..NO DYSRHYTHMIAS...PERMACATH TO RIGHT CHEST UTILIZED FOR HEMODIALYSIS...LEFT UPPER ARM FISTULA WITH (+) BRUIT....REPEAT POTASSIUM = 5.0 (DECREASED FROM 7.0-6.9 PREVIOUSLY)...HOSPITALIST UPDATED..NO NEW ORDERS..LEFT BKA AND SEVERAL FINGER TIP OLD AMPUTATIONS...DENIES DISCOMFORT...SACRUM WITH BROWNIST DISCOLORATION..FEW SCABBED AREAS TO HIPS AND THIGHS
[2024-08-01] MEDS: Pantoprazole Sodium 20 MG TABLET.DR 40 MG PO (05:42)
[2024-08-01 06:58] LABS: Glucose, Whole Blood 79 mg/dL (60-115)
[2024-08-01 07:04] VITALS: BP 150/80; PULSE 64; RESP 20; TEMP 36.4; O2SAT 97
--- NOTE | 2024-08-01 08:54 | MHC.CM.PN ---
CM met with Patient at bedside, in HD, with the assist of Thai Translation and addressed IMM with her (original was given to Patient and a copy has been placed on the chart).
--- NOTE | 2024-08-01 10:45 | MHC.CM.PN ---
Per MD, in ROUNDS, Patient has been medically cleared for dc to SNF/STR today. Patient will dc to [facility] today at 1PM, via [facility] ([facility] transportation auth is [id number]). CM attempted to reach Primary Contact/Parag @ [phone], but voice mail was not set up. MANJINDER spoke with Daughter/HCP/Adelita @ [phone], with the assist if a telephonic [employer] Clerk and informed Adelita of the dc plan.
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
[2024-08-01 12:00] VITALS: BP 148/63; PULSE 67; RESP 18; TEMP 36.3; O2SAT 95
[2024-08-01 12:13] LABS: Glucose, Whole Blood 97 mg/dL (60-115)
[2024-08-01] MEDS: Sevelamer Carbonate Tablet 800 MG TABLET PO (12:27)
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
== END 2024-08-01 13:18 | disposition skilled nursing facility (03) | DRG 640 ==
LOC: HO.ED 07-31 18:30 → HO.EDOVER 07-31 21:16 → HO.IMC 07-31 23:08
PROVIDERS: Emergency Medicine; Nurse Practitioner Family; Physician Assistant Medical; Admitting Provider Internal Medicine; Emergency Provider Emergency Medicine Emergency Medical Services; PCP Internal Medicine; Visit Provider Hospitalist
DX: E87.5 Hyperkalemia (principal); I13.2 Hypertensive heart and chronic kidney disease with heart failure and with stage 5 chronic kidney disease, or end stage renal disease; N18.6 End stage renal disease; T76.01XA Adult neglect or abandonment, suspected, initial encounter; I50.22 Chronic systolic (congestive) heart failure; E11.22 Type 2 diabetes mellitus with diabetic chronic kidney disease; Z99.2 Dependence on renal dialysis; Z91.158 Patient's noncompliance with renal dialysis for other reason; E78.5 Hyperlipidemia, unspecified; Z89.512 Acquired absence of left leg below knee; E11.65 Type 2 diabetes mellitus with hyperglycemia; Z20.822 Contact with and (suspected) exposure to COVID-19; Z79.4 Long term (current) use of insulin; Z79.02 Long term (current) use of antithrombotics/antiplatelets; Z79.82 Long term (current) use of aspirin; Z79.899 Other long term (current) drug therapy
CPT/HCPCS: 36415; 80048; 80053; 82947; 83735; 84100; 84132; 85025; 87635; 90999; 93005; 97162; 99285; J0613

== ENCOUNTER → 2024-07-31 17:58 | Outpatient (BNV) | payer OTHER, SELFPAY | PROVIDERS: Admitting Provider Internal Medicine; Emergency Provider Emergency Medicine Emergency Medical Services; PCP Internal Medicine; Visit Provider Internal Medicine | DX: R00.1 Bradycardia, unspecified (principal); R94.31 Abnormal electrocardiogram [ECG] [EKG]; E87.5 Hyperkalemia | CPT/HCPCS: 93010 ==

== ENCOUNTER → 2024-07-31 21:04 | Outpatient (BNV) | payer OTHER, SELFPAY | PROVIDERS: Admitting Provider Internal Medicine; Emergency Provider Emergency Medicine Emergency Medical Services; PCP Internal Medicine; Visit Provider Student in an Organized Health Care Education/Training Program | DX: E87.5 Hyperkalemia (principal) | CPT/HCPCS: 99222; 99239 ==

== ENCOUNTER 2024-08-15 11:48 | Emergency (ER) | payer OTHER, SELFPAY ==
--- NOTE | ~2024-08-15 | XR_ITS ---
EXAMINATION: XR ABDOMEN KUB CLINICAL INDICATION: Pain. COMPARISON: December 15, 2023 TECHNIQUE: AP view of the abdomen. FINDINGS: Gas filled mildly prominent large intestine left hemiabdomen. Cardiomediastinal silhouette appears enlarged in the left lower hemithorax. Multilevel thoracolumbar spondylosis. Degenerative changes in the coxofemoral joints and sacroiliac joints. XR/XR KUB IMPRESSION: No intestinal obstruction pattern. Cardiomegaly versus pericardial effusion. Electronically signed by: Lisandro Jones MD 08/15/2024 03:07 PM [facility]
[2024-08-15 12:01] VITALS: BP 159/70; PULSE 68; O2SAT 98
[2024-08-15 12:02] VITALS: RESP 18; TEMP 36.8; O2SAT 100; BMI 24.2
[2024-08-15 12:16] VITALS: BP 157/66
--- NOTE | 2024-08-15 12:40 | ECG_ITS ---
Test Reason : ARRYTHMIA Blood Pressure : / mmHG Vent. Rate : 067 BPM Atrial Rate : 067 BPM P-R Int : 174 ms QRS Dur : 140 ms QT Int : 484 ms P-R-T Axes : 059 -50 -76 degrees QTc Int : 511 ms Normal sinus rhythm Left axis deviation Non-specific intra-ventricular conduction block Minimal voltage criteria for LVH, may be normal variant ( [place] product ) Cannot rule out Anterior infarct (cited on or before 31-JUL-2024) Abnormal ECG When compared with ECG of 31-JUL-2024 18:07, Serial changes of Anterior infarct Present Referred By: Rayna Baker Electronically Signed By:Nik Lou
[2024-08-15 13:22] LABS: MANUAL DIFF FLAG NO
[2024-08-15 13:29] LABS: Basophils Absolute Auto 0.1 X10*3/uL (0.0-0.2); Basophils Percent Auto 0.7 % (0-2); Eosinophils Absolute Auto 0.2 X10*3/uL (0.0-0.4); Eosinophils Percent Auto 3.2 % (0-4); Hematocrit 36.5 % (37.0-47.0); Hemoglobin 11.8 g/dl (12.0-16.0); Imm Gran Abs Auto 0.03 X10*3/uL (0.00-0.03); Imm Gran Pct Auto 0.4 % (0.0-0.4); Lymphocytes Absolute Auto 1.3 X10*3/uL (1.2-4.9); Lymphocytes Percent Auto 17.1 % (20-40); Mean Corpuscular HGB Conc 32.3 g/dl (31.0-35.0); Mean Corpuscular Hemoglobin 27.2 pg (27.0-33.0); Mean Corpuscular Volume 84.1 fL (80.0-98.0); Mean Platelet Volume 10.3 fL (9.4-12.3); Monocytes Absolute Auto 0.7 X10*3/uL (0.1-1.2); Monocytes Percent Auto 9.5 % (2-11); Neutrophils Absolute Auto 5.2 x10*3/uL (2.0-8.3); Neutrophils Percent Auto 69.1 % (45-73); Platelet Count 163 X10*3/uL (160-400); Red Blood Count 4.34 X10*6/uL (4.20-5.50); Red Cell Distribution Width 14.8 % (11.0-16.0); White Blood Count 7.5 X10*3/uL (4.8-10.8)
[2024-08-15 13:39] LABS: Alanine Aminotransferase 20 U/L (0-31); Albumin Level 3.1 g/dL (3.5-5.0); Alkaline Phosphatase 209 U/L (39-117); Anion Gap 11 (12-20); Aspartate Amino Transferase 32 U/L (5-31); Bilirubin Total 0.4 mg/dL (0.0-1.0); Blood Urea Nitrogen 29 mg/dL (9-16); Calcium 8.3 mg/dL (8.4-10.2); Carbon Dioxide 34 mmol/L (22-29); Chloride 96 mmol/L (96-108); Creatinine Clr Calc Pharmacy 14.3; Estimated Glomerular Filt Rate 16; Glucose Random 120 mg/dL (60-115); Magnesium 1.8 mg/dL (1.6-2.6); Potassium 4.5 mmol/L (3.3-5.1); Sodium 136 mmol/L (135-145); Total Protein 6.8 g/dL (6.5-8.0)
[2024-08-15 14:12] LABS: Appearance Urine Turbid; Color Urine Yellow; Glucose Urine UA Negative (Negative); Leukocyte Esterase Urine Large (3+) (Negative); Nitrite Urine Negative (Negative); UMIC TRIGGER UACC YES; Urine Blood Moderate (2+) (Negative); Urine Ketones Negative (Negative); Urine Protein >=1000 (4+) mg/dL (Neg-Trace)
[2024-08-15 14:25] LABS: Bacteria Urine 4+ (None Seen); Hyaline Casts Urine 0-2 /LPF (0-2); UACC Culture Trigger YES; WBC Urine >50 /HPF (0-5)
--- NOTE | 2024-08-15 15:37 | ED_ITS ---
HPI - General Adult General Chief complaint: General Medical Stated complaint: Confusion/ Constipation from SNF PER EMS Time Seen by Provider: 08/15/24 12:39 Source: EMS and RN notes reviewed Limitations: language barrier History of Present Illness ED Provider: Rayna gresham PA-C HPI narrative: 69-year-old female with a history of chronic constipation, dementia, end-stage renal disease on dialysis who still makes urine, prior CVA, presents from sniff with concern for urinary and fecal retention. The patient often complains of inability to empty her bladder and constipation. To note, family was visiting her at the facility, they requested a medical clearance. Per [facility] report and EMS, the patient is at her baseline mentation, they are not noting acute constipation or urinary retention. Related Data Home Medications ?Medication ?Instructions ?Recorded ?Confirmed aspirin 81 mg tablet,delayed 81 mg PO BEDTIME 06/20/21 07/28/24 release atorvastatin 80 mg tablet 80 mg PO BEDTIME 06/20/21 07/28/24 clopidogrel 75 mg tablet 75 mg PO DAILY 06/20/21 07/28/24 magnesium oxide 400 mg (241.3 mg 400 mg PO DAILY 04/20/23 07/28/24 magnesium) tablet blood sugar diagnostic (OneTouch #10 ea 05/25/23 Ultra Test strips) insulin aspart U-100 100 unit/mL See Protocol subcut NEEDED PRN 05/25/23 07/28/24 (3 mL) subcutaneous pen (Novolog bs >200 FlexPen U-100 Insulin aspart) lancets 33 gauge (OneTouch Delica #100 ea 05/25/23 Plus Lancet) pen needle, diabetic 32 gauge x #1,200 ea 05/25/23 (Pentips) melatonin 5 mg tablet 5 - 10 mg PO BEDTIME PRN Sleep 09/21/23 07/30/24 sevelamer carbonate 800 mg tablet 800 mg PO TIDWM 10/08/23 07/28/24 albuterol sulfate 90 mcg/actuation 2 inh inhalation Q6H PRN shortness 01/02/24 07/30/24 breath activated powder inhaler of breath or wheezing cholecalciferol (vitamin D3) 1,250 1,250 mcg PO WEN 01/02/24 07/28/24 mcg (50,000 unit) capsule pantoprazole 40 mg tablet,delayed 40 mg PO DAILY@0630 01/02/24 07/28/24 release insulin glargine 100 unit/mL (3 20 unit subcut DAILY 05/24/24 05/24/24 mL) subcutaneous pen (Lantus Solostar U-100 Insulin) Previous Rx's ?Medication ?Instructions ?Recorded carvedilol 12.5 mg tablet 12.5 mg PO BIDWM #60 tabs 10/11/23 sennosides 8.6 mg tablet (Natural 17.2 mg (2 x 8.6 mg) PO BEDTIME 11/22/23 Senna Laxative) constipation #60 tabs acetaminophen 325 mg capsule 650 mg (2 x 325 mg) PO Q6H PRN 03/02/24 pain #20 caps Allergies Allergy/AdvReac Type Severity Reaction Status Date / Time lobster AdvReac Hives Verified 08/15/24 12:07 Review of Systems 2 Review of Systems: Unable to obtain due to dementia Yes all other systems are reviewed and are negative PMFSH Past Medical History Attestation statement: The following information was validated with the patient. Medical History Bilateral visual loss Open wnd toe-complicated Wound, open, hand with or without fingers with complication End stage renal disease on dialysis Congestive heart failure Hyperglycemia due to diabetes mellitus Anemia Heart failure with reduced ejection fraction Dialysis patient, noncompliant Chronic kidney disease Thrombocytopenia CKD (chronic kidney disease) stage 4, GFR 15-29 ml/min Constipation Ischemic necrosis of finger Normocytic anemia Urinary tract infection due to ESBL Klebsiella Chronic heart failure with preserved ejection fraction (HFpEF) Hypomagnesemia Acute on chronic renal failure Essential hypertension HLD (hyperlipidemia) Non-ST elevated myocardial infarction Diabetes mellitus Nonischemic cardiomyopathy Irritable bowel syndrome with diarrhea Gastroparesis GERD (gastroesophageal reflux disease) Surgical History Status post amputation of finger H/O surgical amputation of finger History of laparoscopic cholecystectomy History of intestinal surgery Hx of eye surgery History of esophagogastroduodenoscopy (EGD) Hx of colonoscopy H/O: hysterectomy Family History Family History Father Lung cancer Mother Diabetes HTN (hypertension) Heart disease Sister Diabetes Heart disease Brother Heart disease Son Diabetes Daughter Diabetes Social History Social History Household Members: Children Household Members Other:: daughter and grandson Housing: House Do you presently have visiting nurse or other home services: No (considering her grandson to be VICE PRESIDENT BUSINESS DEVELOPMENT) Unable to assess alcohol history related to: Unable to respond and Unknown Alcohol intake: never Comment: camera in place Patient Tobacco Use Status: Never used Tobacco Smoked in Last 30 Days: No e-Cigarette/Vaping Use: Never Used Second Hand Smoke Exposure: No Use of substances other than those prescribed or required for medical reasons: No Advance Directives: Yes Advance Directives on File: Yes Advance Directives Date on File: 01/04/23 service: No Current occupational status: disabled Physical Exam ED Vital Signs: Vital Signs - 24 hr 08/15/24 12:02 08/15/24 12:16 Temperature 98.2 F Respiratory Rate 18 Blood Pressure 157/66 H Pulse Oximetry 100 Oxygen Delivery Method Room Air BMI result Body Mass Index 24.2 Const Other: Awake, overall well-appearing, sitting up in bed eating and drinking Orientation/consciousness: oriented to person Resp Other: Nonlabored respiration Cardio Other: Normal peripheral perfusion GI Other: Abdomen is soft, nondistended, nontender Skin Other: Warm dry no rash Neuro General: oriented to person, no focal motor deficits and CN's II-XI intact bilaterally Psych Other: Cooperative Medical Decision Making Medical Decision Making MDM Narrative: 69-year-old female with a history of chronic constipation, dementia, end-stage renal disease on dialysis who still makes urine, prior CVA, presents from sniff with concern for urinary and fecal retention. The patient often complains of inability to empty her bladder and constipation. To note, family was visiting her at the facility, they requested a medical clearance. Per [facility] report and EMS, the patient is at her baseline mentation, they are not noting acute constipation or urinary retention. Problem: Dementia, end-stage renal, constipation History: Per EMS and sniff record I have considered the following differential diagnoses: UTI, constipation, acute urinary retention, bowel obstruction Plan: We will screen basic labs and a urinalysis, obtaining a KUB to assess for stool burden. The patient's exam was unremarkable, she does not have obstructive symptoms and again her exam was benign. I have independently reviewed the following tests: Labs: No leukocytosis, not anemic, no electrolyte abnormality, urine not infected KUB: XR/XR KUB IMPRESSION: No intestinal obstruction pattern. Cardiomegaly versus pericardial effusion. Electronically signed by: Lisandro Jones MD 08/15/2024 03:07 PM [facility] Lab Data 08/15/24 13:14 08/15/24 13:14 Labs: Lab Results 08/15/24 08/15/24 Range/Units 13:14 13:25 WBC 7.5 (4.8-10.8) X10*3/uL RBC 4.34 (4.20-5.50) X10*6/uL Hgb 11.8 L (12.0-16.0) g/dl Hct 36.5 L (37.0-47.0) % MCV 84.1 (80.0-98.0) fL MCH 27.2 (27.0-33.0) pg MCHC 32.3 (31.0-35.0) g/dl RDW 14.8 (11.0-16.0) % Plt Count 163 (160-400) X10*3/uL MPV 10.3 (9.4-12.3) fL Immature Gran % (Auto) 0.4 (0.0-0.4) % Neut % (Auto) 69.1 (45-73) % Lymph % (Auto) 17.1 L (20-40) % [place] % (Auto) 9.5 (2-11) % Eos % (Auto) 3.2 (0-4) % Baso % (Auto) 0.7 (0-2) % Lymph # (Auto) 1.3 (1.2-4.9) X10*3/uL [place] # (Auto) 0.7 (0.1-1.2) X10*3/uL Eos # (Auto) 0.2 (0.0-0.4) X10*3/uL Baso # (Auto) 0.1 (0.0-0.2) X10*3/uL Abs Immat Gran (auto) 0.03 (0.00-0.03) X10*3/uL Absolute Neuts (auto) 5.2 (2.0-8.3) x10*3/uL Absolute Nucleated RBC 0.000 (0.0-0.012) X10*3/uL Nucleated RBC % (auto) 0.0 (0.0-0.2) /100WBC Sodium 136 (135-145) mmol/L Potassium 4.5 (3.3-5.1) mmol/L Chloride 96 (96-108) mmol/L Carbon Dioxide 34 H (22-29) mmol/L Anion Gap 11 L (12-20) BUN 29 H (9-16) mg/dL Creatinine 2.83 H (0.5-1.4) mg/dL Estim Creat Clear Calc 14.3 Estimated GFR 16 Random Glucose 120 H (60-115) mg/dL Calcium 8.3 L (8.4-10.2) mg/dL Magnesium 1.8 (1.6-2.6) mg/dL Total Bilirubin 0.4 (0.0-1.0) mg/dL AST 32 H (5-31) U/L ALT 20 (0-31) U/L Alkaline Phosphatase 209 H (39-117) U/L Total Protein 6.8 (6.5-8.0) g/dL Albumin 3.1 L (3.5-5.0) g/dL Urine Color Yellow Urine Appearance Turbid Urine pH 7.0 (5.0-9.0) Ur Specific [place] 1.010 (1.005-1.025) Urine Protein >=1000 (4+) H (Neg-Trace) mg/dL Urine Glucose (UA) Negative (Negative) mg/dL Urine Ketones Negative (Negative) mg/dL Urine Blood Moderate (2+) H (Negative) Urine Nitrite Negative (Negative) Ur Leukocyte Esterase Large (3+) H (Negative) Urine RBC 3-5 H (0-2) /HPF Urine WBC >50 H (0-5) /HPF Ur Squamous Epith Cells 11-20 (0-2) /HPF Urine Bacteria 4+ (None Seen) Hyaline Casts 0-2 (0-2) /LPF Discharge Plan Discharge Clinical Impression: Constipation Patient Disposition: Home, Self-Care Instructions: Constipation (ED) Additional Instructions: All of your screening labs were at your baseline, the urine is not infected. X- rays were obtained of the abdomen, you are mildly constipated. See home care instructions. You can use [id number] Colace, this is a stool softener 1 to 2 times a day. In addition you can use [id number]-plfbhan MiraLax, 1 to 2 times a day until you begin having normal regular bowel movements. Follow up with your primary care provider as needed. Prescriptions: No Action atorvastatin 80 mg tablet 80 mg PO BEDTIME clopidogrel 75 mg tablet 75 mg PO DAILY aspirin 81 mg tablet,delayed release (DR/EC) 81 mg PO BEDTIME magnesium oxide 400 mg (241.3 mg magnesium) tablet 400 mg PO DAILY sevelamer carbonate 800 mg tablet 800 mg PO TIDWM carvedilol 12.5 mg Tablet 12.5 mg PO BIDWM Qty: 60 1RF Protocol: Hold for SBP/HR < HOLD for SBP < : 90 HOLD for HR < : 60 acetaminophen 325 mg capsule 650 mg PO Q6H PRN (Reason: pain) Qty: 20 0RF melatonin 5 mg tablet 5 - 10 mg PO BEDTIME PRN (Reason: Sleep) cholecalciferol (vitamin D3) 1,250 mcg (50,000 unit) capsule 1,250 mcg PO WEN Rx Instructions: take on Monday pantoprazole 40 mg tablet,delayed release (DR/EC) 40 mg PO DAILY@0630 Rx Instructions: take one tablet half an hour before breakfast albuterol sulfate 90 mcg/actuation aerosol powdr breath activated 2 inh inhalation Q6H PRN (Reason: shortness of breath or wheezing) insulin glargine [Lantus Solostar U-100 Insulin] 100 unit/mL (3 mL) insulin pen 20 unit subcut DAILY sennosides [Natural Senna Laxative] 8.6 mg tablet 17.2 mg PO BEDTIME Qty: 60 3RF (DME) lancets [OneTouch Delica Plus Lancet] 33 gauge misc See Rx Instructions .ROUTE TID Qty: 100 Rx Instructions: As directed (DME) pen needle, diabetic [Pentips] 32 gauge x 5/32 needle See Rx Instructions .ROUTE DIRECTED Qty: 1200 Rx Instructions: As directed (DME) OneTouch Ultra Test Strip See Rx Instructions .ROUTE TID Qty: 10 Rx Instructions: As directed insulin aspart U-100 [Novolog FlexPen U-100 Insulin] 100 unit/mL (3 mL) insulin pen See Protocol subcut NEEDED PRN (Reason: bs >200) Protocol: Insulin Correction Scale Less than or equal to 110 ---- Give (units): 0 111 to 150 Give (units): 0 151 to 200 Give (units): 2 201 to 250 Give (units): 4 251 to 300 Give (units): 6 301 to 350 Give (units): 8 Greater than 350 Give (units): 10 Call MD if Blood Glucose > : 350 Rx Instructions: 8-12 units SLIDING SCALE Print Language: [place]
[2024-08-15 17:54] VITALS: BP 160/76; PULSE 70; RESP 18; TEMP 36.6; O2SAT 98
== END 2024-08-15 17:56 | disposition home or self-care (01) ==
PROVIDERS: Physician Assistant Medical; Emergency Provider Student in an Organized Health Care Education/Training Program; PCP Internal Medicine
DX: K59.00 Constipation, unspecified (principal); E11.22 Type 2 diabetes mellitus with diabetic chronic kidney disease; I12.0 Hypertensive chronic kidney disease with stage 5 chronic kidney disease or end stage renal disease; N18.6 End stage renal disease; R33.9 Retention of urine, unspecified; I49.9 Cardiac arrhythmia, unspecified; R10.2 Pelvic and perineal pain; Z79.4 Long term (current) use of insulin; Z79.899 Other long term (current) drug therapy
CPT/HCPCS: 36415; 51701; 74018; 80053; 81001; 81003; 83735; 85025; 87086; 93005; 99284; 99285

== ENCOUNTER → 2024-08-15 12:39 | Outpatient (BNV) | payer OTHER, SELFPAY | PROVIDERS: Emergency Provider Student in an Organized Health Care Education/Training Program; PCP Internal Medicine; Visit Provider Radiology Diagnostic Radiology | DX: R10.9 Unspecified abdominal pain (principal); K59.00 Constipation, unspecified | CPT/HCPCS: 74018 ==

== ENCOUNTER → 2024-08-15 12:40 | Outpatient (BNV) | payer OTHER, SELFPAY | PROVIDERS: Emergency Provider Student in an Organized Health Care Education/Training Program; PCP Internal Medicine; Visit Provider Internal Medicine Cardiovascular Disease | DX: I49.9 Cardiac arrhythmia, unspecified (principal); I44.4 Left anterior fascicular block; R94.31 Abnormal electrocardiogram [ECG] [EKG] | CPT/HCPCS: 93010 ==

== ENCOUNTER 2024-08-28 21:28 | Emergency (ER) | payer OTHER, SELFPAY ==
--- NOTE | ~2024-08-28 | XR_ITS ---
EXAMINATION: XR CHEST CLINICAL INFORMATION: Dyspnea and cough COMPARISON: Chest radiograph 05/24/2024 TECHNIQUE: Frontal view of the chest was obtained. FINDINGS: There is mild cardiomegaly. A right IJ hemodialysis catheter is present with its tip in good position in the right atrium. There is blurring of pulmonary vasculature with bibasilar atelectasis. Small pleural effusions are likely present. Degenerative changes are present in both shoulders, right greater than left with rotator cuff tear. XR/XR chest 1V IMPRESSION: Cardiomegaly with pulmonary vascular congestion , mild interstitial edema and small pleural effusions. Electronically signed by: Adalberto Patricia MD 08/28/2024 11:40 PM CECILIO
[2024-08-28 21:35] VITALS: BP 112/95; BP 171/83; PULSE 70; PULSE 71; RESP 30; TEMP 36.7; O2SAT 94; O2SAT 96; BMI 26.3
--- NOTE | 2024-08-28 22:03 | ED.SOB ---
HPI - SOB/Dyspnea General Chief Complaint: Dyspnea Stated Complaint: SOB, missed dialysis Time Seen by Provider: 08/28/24 21:42 Source: patient Mode of arrival: EMS Limitations: no limitations History of Present Illness ED Provider: sandhya REECE Narrative: 68-year-old female with pertinent history of ESRD on hemodialysis (Monday, Monday, Monday), congestive heart failure with reduced ejection fraction, insulin-dependent type 2 diabetes mellitus, mixed hyperlipidemia, hypertension, history of CVA, mood disorder, peripheral vascular disease s/p left BKA and mulitple finger amputations who presents to ER for increased shortness a breath started earlier today patient supposed to go to dialysis today but was canceled patient does make urine complaining of increased shortness of breath Related Data Home Medications ?Medication ?Instructions ?Recorded ?Confirmed aspirin 81 mg tablet,delayed 81 mg PO BEDTIME 06/20/21 07/28/24 release atorvastatin 80 mg tablet 80 mg PO BEDTIME 06/20/21 07/28/24 clopidogrel 75 mg tablet 75 mg PO DAILY 06/20/21 07/28/24 magnesium oxide 400 mg (241.3 mg 400 mg PO DAILY 04/20/23 07/28/24 magnesium) tablet blood sugar diagnostic (OneTouch #10 ea 05/25/23 Ultra Test strips) insulin aspart U-100 100 unit/mL See Protocol subcut NEEDED PRN 05/25/23 07/28/24 (3 mL) subcutaneous pen (Novolog bs >200 FlexPen U-100 Insulin aspart) lancets 33 gauge (OneTouch Delica #100 ea 05/25/23 Plus Lancet) pen needle, diabetic 32 gauge x #1,200 ea 05/25/23 (Pentips Pen Needle) melatonin 5 mg tablet 5 - 10 mg PO BEDTIME PRN Sleep 09/21/23 07/30/24 sevelamer carbonate 800 mg tablet 800 mg PO TIDWM 10/08/23 07/28/24 albuterol sulfate 90 mcg/actuation 2 inh inhalation Q6H PRN shortness 01/02/24 07/30/24 breath activated powder inhaler of breath or wheezing cholecalciferol (vitamin D3) 1,250 1,250 mcg PO WEN 01/02/24 07/28/24 mcg (50,000 unit) capsule pantoprazole 40 mg tablet,delayed 40 mg PO DAILY@0630 01/02/24 07/28/24 release insulin glargine 100 unit/mL (3 20 unit subcut DAILY 05/24/24 05/24/24 mL) subcutaneous pen (Lantus Solostar U-100 Insulin) Previous Rx's ?Medication ?Instructions ?Recorded carvedilol 12.5 mg tablet 12.5 mg PO BIDWM #60 tabs 10/11/23 sennosides 8.6 mg tablet (Natural 17.2 mg (2 x 8.6 mg) PO BEDTIME 11/22/23 Senna Laxative) constipation #60 tabs acetaminophen 325 mg capsule 650 mg (2 x 325 mg) PO Q6H PRN 03/02/24 pain #20 caps Allergies Allergy/AdvReac Type Severity Reaction Status Date / Time lobster AdvReac Hives Verified 08/28/24 21:37 Review of Systems Review of Systems: Yes all other systems are reviewed and are negative [facility] Past Medical History Medical History Renal failure, chronic Bilateral visual loss Open wnd toe-complicated Wound, open, hand with or without fingers with complication End stage renal disease on dialysis Congestive heart failure Hyperglycemia due to diabetes mellitus Anemia Heart failure with reduced ejection fraction Dialysis patient, noncompliant Chronic kidney disease Thrombocytopenia CKD (chronic kidney disease) stage 4, GFR 15-29 ml/min Constipation Ischemic necrosis of finger Normocytic anemia Urinary tract infection due to ESBL Klebsiella Chronic heart failure with preserved ejection fraction (HFpEF) Hypomagnesemia Acute on chronic renal failure Essential hypertension HLD (hyperlipidemia) Non-ST elevated myocardial infarction Diabetes mellitus Nonischemic cardiomyopathy Irritable bowel syndrome with diarrhea Gastroparesis GERD (gastroesophageal reflux disease) Surgical History Status post amputation of finger H/O surgical amputation of finger History of laparoscopic cholecystectomy History of intestinal surgery Hx of eye surgery History of esophagogastroduodenoscopy (EGD) Hx of colonoscopy H/O: hysterectomy Family History Family History Father Lung cancer Mother Diabetes HTN (hypertension) Heart disease Sister Diabetes Heart disease Brother Heart disease Son Diabetes Daughter Diabetes Social History Social History Household Members: Children Household Members Other:: daughter and grandson Housing: House Do you presently have visiting nurse or other home services: No (considering her grandson to be COMPANY ACCOUNTANT) Unable to assess alcohol history related to: Unable to respond and Unknown Alcohol intake: never Comment: camera in place Patient Tobacco Use Status: Never used Tobacco e-Cigarette/Vaping Use: Never Used Second Hand Smoke Exposure: No Advance Directives: Yes Advance Directives on File: Yes Advance Directives Date on File: 01/04/23 service: No Current occupational status: disabled Physical Exam Vital Signs: Vital Signs: Last Vital Signs Temp 98.2 F 08/29/24 02:48 Pulse 67 08/29/24 02:48 Resp 16 08/29/24 02:48 BP 159/72 H 08/29/24 02:48 Pulse Ox 93 08/29/24 02:48 O2 Del Method Room Air 08/29/24 02:48 O2 Flow Rate 2 08/28/24 22:52 BMI result Body Mass Index 26.3 Appearance: Alert. Oriented X3. No acute distress. Eyes: Pallor+ ENT: Pharynx normal. Oral Mucosa moist Neck: Normal inspection. Neck supple. CVS: Normal heart rate and rhythm. Pulses normal. Respiratory: No respiratory distress. Equal air entry bilateral, no wheezing/rales/rhonchi Abdomen: Soft and nontender. Bowel sounds are present, no mass palpable, no CVA tenderness Skin: Skin warm and dry. Normal skin color. Normal skin turgor. Extremities: No lower extremity edema. No calf tenderness left BKA Neuro: Oriented X 3. No motor deficit. No sensory deficit.No cerebellar signs , cranial nerves II-XII intact Medications Administered Discontinued Medications Generic Name Dose Route Start Last Admin Trade Name Freq PRN Reason Stop Dose Admin Albuterol Sulfate 2.5 mg/ 0 mg 08/28/24 22:17 08/28/24 22:43 Albuterol/Ipratropium 3 ml INHALE 08/28/24 22:18 5 dose ONCE ONE Administration Furosemide 40 mg 08/28/24 22:23 08/28/24 23:11 Furosemide 40 Mg/4 Ml Vial IVPUSH 08/28/24 22:24 40 mg ONCE ONE Administration Protocol Furosemide 60 mg 08/29/24 00:56 08/29/24 01:05 Furosemide 100 Mg/10 Ml Vial IVPUSH 08/29/24 00:57 60 mg ONCE ONE Administration Protocol Insulin Human Lispro 5 unit 08/29/24 00:33 08/29/24 00:46 Insulin Lispro 100 Unit/Ml 3 Ml Vial SUBCUT 08/29/24 00:34 5 unit ONCE ONE Administration Medical Decision Making Medical Decision Making MDM Narrative: Patient with end-stage renal disease missed her dialysis not in [place] CHF still urinates good amount was given Lasix will be getting dialysis tomorrow patient is saturating 94% at room air Lab Data MDM Lab Attestation statement: I reviewed the patient's lab results. 08/28/24 23:08 08/28/24 23:08 Labs: Lab Results 08/28/24 Range/Units 23:08 WBC 7.3 (4.8-10.8) X10*3/uL RBC 3.46 L D (4.20-5.50) X10*6/uL Hgb 9.6 L (12.0-16.0) g/dl Hct 29.8 L (37.0-47.0) % MCV 86.1 (80.0-98.0) fL MCH 27.7 (27.0-33.0) pg MCHC 32.2 (31.0-35.0) g/dl RDW 15.0 (11.0-16.0) % Plt Count 136 L (160-400) X10*3/uL MPV 12.0 (9.4-12.3) fL Immature Gran % (Auto) 0.3 (0.0-0.4) % Neut % (Auto) 73.7 H (45-73) % Lymph % (Auto) 16.0 L (20-40) % Brown % (Auto) 8.3 (2-11) % Eos % (Auto) 1.4 (0-4) % Baso % (Auto) 0.3 (0-2) % Lymph # (Auto) 1.2 (1.2-4.9) X10*3/uL Brown # (Auto) 0.6 (0.1-1.2) X10*3/uL Eos # (Auto) 0.1 (0.0-0.4) X10*3/uL Baso # (Auto) 0.0 (0.0-0.2) X10*3/uL Abs Immat Gran (auto) 0.02 (0.00-0.03) X10*3/uL Absolute Neuts (auto) 5.4 (2.0-8.3) x10*3/uL Absolute Nucleated RBC 0.000 (0.0-0.012) X10*3/uL Nucleated RBC % (auto) 0.0 (0.0-0.2) /100WBC Sodium 140 (135-145) mmol/L Potassium 5.2 H (3.3-5.1) mmol/L Chloride 99 (96-108) mmol/L Carbon Dioxide 28 (22-29) mmol/L Anion Gap 18 (12-20) BUN 51 H (9-16) mg/dL Creatinine 4.75 H* (0.5-1.4) mg/dL Estim Creat Clear Calc 8.8 Estimated GFR 9 Random Glucose 366 H* (60-115) mg/dL Calcium 8.5 (8.4-10.2) mg/dL Magnesium 2.0 (1.6-2.6) mg/dL Total Bilirubin 0.5 (0.0-1.0) mg/dL AST 25 (5-31) U/L ALT 16 (0-31) U/L Alkaline Phosphatase 247 H (39-117) U/L Total Protein 6.9 (6.5-8.0) g/dL Albumin 3.3 L (3.5-5.0) g/dL Independent Interpretation I performed an independent interpretation of an: EKG Interpretation: Normal sinus rhythm heart rate 68 beats per minute normal interval LVH no acute ST-T changes no acute ischemia Discharge Plan Discharge Clinical Impression: End-stage renal disease (ESRD) Patient Disposition: Home, Self-Care Instructions: End Stage Kidney Disease (ED) Additional Instructions: Continue your medication and use your inhaler as prescribed Follow up with your PCP And have dialysis as scheduled Prescriptions: No Action atorvastatin 80 mg tablet 80 mg PO BEDTIME clopidogrel 75 mg tablet 75 mg PO DAILY aspirin 81 mg tablet,delayed release (DR/EC) 81 mg PO BEDTIME magnesium oxide 400 mg (241.3 mg magnesium) tablet 400 mg PO DAILY sevelamer carbonate 800 mg tablet 800 mg PO TIDWM carvedilol 12.5 mg Tablet 12.5 mg PO BIDWM Qty: 60 1RF Protocol: Hold for SBP/HR < HOLD for SBP < : 90 HOLD for HR < : 60 acetaminophen 325 mg capsule 650 mg PO Q6H PRN (Reason: pain) Qty: 20 0RF melatonin 5 mg tablet 5 - 10 mg PO BEDTIME PRN (Reason: Sleep) cholecalciferol (vitamin D3) 1,250 mcg (50,000 unit) capsule 1,250 mcg PO WEN Rx Instructions: take on Monday pantoprazole 40 mg tablet,delayed release (DR/EC) 40 mg PO DAILY@0630 Rx Instructions: take one tablet half an hour before breakfast albuterol sulfate 90 mcg/actuation aerosol powdr breath activated 2 inh inhalation Q6H PRN (Reason: shortness of breath or wheezing) insulin glargine [Lantus Solostar U-100 Insulin] 100 unit/mL (3 mL) insulin pen 20 unit subcut DAILY sennosides [Natural Senna Laxative] 8.6 mg tablet 17.2 mg PO BEDTIME Qty: 60 3RF (DME) lancets [OneTouch Delica Plus Lancet] 33 gauge misc See Rx Instructions .ROUTE TID Qty: 100 Rx Instructions: As directed (DME) pen needle, diabetic [Pentips Pen Needle] 32 gauge x 5/32 needle See Rx Instructions .ROUTE DIRECTED Qty: 1200 Rx Instructions: As directed (DME) OneTouch Ultra Test Strip See Rx Instructions .ROUTE TID Qty: 10 Rx Instructions: As directed insulin aspart U-100 [Novolog FlexPen U-100 Insulin] 100 unit/mL (3 mL) insulin pen See Protocol subcut NEEDED PRN (Reason: bs >200) Protocol: Insulin Correction Scale Less than or equal to 110 ---- Give (units): 0 111 to 150 Give (units): 0 151 to 200 Give (units): 2 201 to 250 Give (units): 4 251 to 300 Give (units): 6 301 to 350 Give (units): 8 Greater than 350 Give (units): 10 Call MD if Blood Glucose > : 350 Rx Instructions: 8-12 units SLIDING SCALE Interventions: ED Discharge Assessment Last Done: 08/29/24 02:48 Discharge Date/Time: 08/29/24 02:49 Print Language: French
--- NOTE | 2024-08-28 22:17 | ECG_ITS ---
Test Reason : SOB Blood Pressure : / mmHG Vent. Rate : 068 BPM Atrial Rate : 068 BPM P-R Int : 150 ms QRS Dur : 136 ms QT Int : 492 ms P-R-T Axes : 109 -71 266 degrees QTc Int : 523 ms Normal sinus rhythm Left axis deviation Left ventricular hypertrophy with QRS widening and repolarization abnormality ( Heriberto product ) Abnormal ECG When compared with ECG of 15-AUG-2024 13:20, No significant change was found Referred By: Chirag Montes Electronically Signed By:MYESHA FREY
[2024-08-28] MEDS: Albuterol Sulfate 2.5 MG, Albuterol/Iprat 2.5/0.5MG 3 ML 3 ML INHALE (22:43)
[2024-08-28 22:44] VITALS: PULSE 67; RESP 22; O2SAT 98
[2024-08-28 22:52] VITALS: BP 159/59; PULSE 66; RESP 20; O2SAT 100
--- NOTE | 2024-08-28 22:56 | PC.NURSE ---
multiple attempts for IV access. aware
[2024-08-28] MEDS: Furosemide 40 MG/4 ML VIAL IVPUSH (23:11)
[2024-08-28 23:13] LABS: Basophils Percent Auto 0.3 % (0-2); Eosinophils Absolute Auto 0.1 X10*3/uL (0.0-0.4); Eosinophils Percent Auto 1.4 % (0-4); Hematocrit 29.8 % (37.0-47.0); Hemoglobin 9.6 g/dl (12.0-16.0); Imm Gran Abs Auto 0.02 X10*3/uL (0.00-0.03); Imm Gran Pct Auto 0.3 % (0.0-0.4); Lymphocytes Absolute Auto 1.2 X10*3/uL (1.2-4.9); MANUAL DIFF FLAG NO; Mean Corpuscular HGB Conc 32.2 g/dl (31.0-35.0); Mean Corpuscular Hemoglobin 27.7 pg (27.0-33.0); Mean Corpuscular Volume 86.1 fL (80.0-98.0); Monocytes Absolute Auto 0.6 X10*3/uL (0.1-1.2); Monocytes Percent Auto 8.3 % (2-11); Neutrophils Absolute Auto 5.4 x10*3/uL (2.0-8.3); Neutrophils Percent Auto 73.7 % (45-73); Platelet Count 136 X10*3/uL (160-400); Red Blood Count 3.46 X10*6/uL (4.20-5.50); White Blood Count 7.3 X10*3/uL (4.8-10.8)
[2024-08-28 23:31] VITALS: BP 162/54; PULSE 66; RESP 16; TEMP 36.8; O2SAT 100
[2024-08-28 23:33] LABS: Alanine Aminotransferase 16 U/L (0-31); Albumin Level 3.3 g/dL (3.5-5.0); Alkaline Phosphatase 247 U/L (39-117); Anion Gap 18 (12-20); Aspartate Amino Transferase 25 U/L (5-31); Bilirubin Total 0.5 mg/dL (0.0-1.0); Blood Urea Nitrogen 51 mg/dL (9-16); Calcium 8.5 mg/dL (8.4-10.2); Carbon Dioxide 28 mmol/L (22-29); Chloride 99 mmol/L (96-108); Creatinine Clr Calc Pharmacy 8.8; Estimated Glomerular Filt Rate 9; Glucose Random 366 mg/dL (60-115); Potassium 5.2 mmol/L (3.3-5.1); Sodium 140 mmol/L (135-145); Total Protein 6.9 g/dL (6.5-8.0)
--- NOTE | 2024-08-28 23:34 | PC.NURSE ---
Addendum entered by Nicolasa Best 08/29/24 00:24: Left RAJAT Original Note: R RAJAT placed by provider
[2024-08-29] MEDS: Insulin Lispro 100 UNIT/ML 3 ML VIAL SUBCUT (00:46)
[2024-08-29] MEDS: Furosemide 100 MG/10 ML VIAL 60 MG IVPUSH (01:05)
[2024-08-29 01:32] VITALS: BP 159/72; PULSE 67; RESP 16; TEMP 36.8; O2SAT 93
[2024-08-29 02:48] VITALS: BP 159/72; PULSE 67; RESP 16; TEMP 36.8; O2SAT 93
== END 2024-08-29 02:49 | disposition home or self-care (01) ==
PROVIDERS: Emergency Provider Internal Medicine; PCP Internal Medicine
DX: E11.22 Type 2 diabetes mellitus with diabetic chronic kidney disease (principal); I13.2 Hypertensive heart and chronic kidney disease with heart failure and with stage 5 chronic kidney disease, or end stage renal disease; R06.02 Shortness of breath; I50.9 Heart failure, unspecified; N18.6 End stage renal disease; Z99.2 Dependence on renal dialysis
CPT/HCPCS: 36415; 71045; 80053; 83735; 85025; 93005; 94640; 96374; 96376; 99284; J1940

== ENCOUNTER → 2024-08-28 22:17 | Outpatient (BNV) | payer OTHER, SELFPAY | PROVIDERS: Emergency Provider Internal Medicine; PCP Internal Medicine; Visit Provider Internal Medicine | DX: R06.02 Shortness of breath (principal); I44.4 Left anterior fascicular block; R94.31 Abnormal electrocardiogram [ECG] [EKG] | CPT/HCPCS: 93010 ==

== ENCOUNTER 2024-09-11 17:59 | Emergency (ER) | payer OTHER, SELFPAY ==
[2024-09-11 18:13] VITALS: BP 146/88; PULSE 86; O2SAT 94
[2024-09-11 18:14] VITALS: BP 173/54; PULSE 70; RESP 18; TEMP 36.5; O2SAT 95; BMI 32.6
--- NOTE | 2024-09-11 18:56 | ED.GENADULT ---
HPI - General Adult General Chief complaint: Extremity Injury, Lower Stated complaint: Lac to leg, ?yeast infection Time Seen by Provider: 09/11/24 18:36 Source: patient Mode of arrival: ambulatory Limitations: no limitations History of Present Illness ED Provider: Home Thomas HPI narrative: 69-year-old history diabetes renal failure dialysis presents to ED for evaluation of right leg laceration that occurred due to 4 days ago. Patient states she cut her leg by accident on will for trying to transfer herself. Patient denies any erythema, swelling, pus discharge, foul odor, fever, or chills. Patient was sent here by family for evaluation. Related Data Home Medications ?Medication ?Instructions ?Recorded ?Confirmed aspirin 81 mg tablet,delayed 81 mg PO BEDTIME 06/20/21 07/28/24 release atorvastatin 80 mg tablet 80 mg PO BEDTIME 06/20/21 07/28/24 clopidogrel 75 mg tablet 75 mg PO DAILY 06/20/21 07/28/24 magnesium oxide 400 mg (241.3 mg 400 mg PO DAILY 04/20/23 07/28/24 magnesium) tablet blood sugar diagnostic (OneTouch #10 ea 05/25/23 Ultra Test strips) insulin aspart U-100 100 unit/mL See Protocol subcut NEEDED PRN 05/25/23 07/28/24 (3 mL) subcutaneous pen (Novolog bs >200 FlexPen U-100 Insulin aspart) lancets 33 gauge (OneTouch Delica #100 ea 05/25/23 Plus Lancet) pen needle, diabetic 32 gauge x #1,200 ea 05/25/23/32 (Pentips Pen Needle) melatonin 5 mg tablet 5 - 10 mg PO BEDTIME PRN Sleep 09/21/23 07/30/24 sevelamer carbonate 800 mg tablet 800 mg PO TIDWM 10/08/23 07/28/24 albuterol sulfate 90 mcg/actuation 2 inh inhalation Q6H PRN shortness 01/02/24 07/30/24 breath activated powder inhaler of breath or wheezing cholecalciferol (vitamin D3) 1,250 1,250 mcg PO WEN 01/02/24 07/28/24 mcg (50,000 unit) capsule pantoprazole 40 mg tablet,delayed 40 mg PO DAILY@0630 01/02/24 07/28/24 release insulin glargine 100 unit/mL (3 20 unit subcut DAILY 05/24/24 05/24/24 mL) subcutaneous pen (Lantus Solostar U-100 Insulin) Previous Rx's ?Medication ?Instructions ?Recorded carvedilol 12.5 mg tablet 12.5 mg PO BIDWM #60 tabs 10/11/23 sennosides 8.6 mg tablet (Natural 17.2 mg (2 x 8.6 mg) PO BEDTIME 11/22/23 Senna Laxative) constipation #60 tabs acetaminophen 325 mg capsule 650 mg (2 x 325 mg) PO Q6H PRN 03/02/24 pain #20 caps cephalexin 500 mg capsule 500 mg PO QID 7 days #28 caps 09/11/24 Allergies Allergy/AdvReac Type Severity Reaction Status Date / Time lobster AdvReac Hives Verified 09/11/24 18:15 Review of Systems Review of Systems: Right leg laceration Yes all other systems are reviewed and are negative [facility] Past Medical History Medical History Renal failure, chronic Bilateral visual loss Open wnd toe-complicated Wound, open, hand with or without fingers with complication End stage renal disease on dialysis Congestive heart failure Hyperglycemia due to diabetes mellitus Anemia Heart failure with reduced ejection fraction Dialysis patient, noncompliant Chronic kidney disease Thrombocytopenia CKD (chronic kidney disease) stage 4, GFR 15-29 ml/min Constipation Ischemic necrosis of finger Normocytic anemia Urinary tract infection due to ESBL Klebsiella Chronic heart failure with preserved ejection fraction (HFpEF) Hypomagnesemia Acute on chronic renal failure Essential hypertension HLD (hyperlipidemia) Non-ST elevated myocardial infarction Diabetes mellitus Nonischemic cardiomyopathy Irritable bowel syndrome with diarrhea Gastroparesis GERD (gastroesophageal reflux disease) Surgical History Status post amputation of finger H/O surgical amputation of finger History of laparoscopic cholecystectomy History of intestinal surgery Hx of eye surgery History of esophagogastroduodenoscopy (EGD) Hx of colonoscopy H/O: hysterectomy Family History Family History Father Lung cancer Mother Diabetes HTN (hypertension) Heart disease Sister Diabetes Heart disease Brother Heart disease Son Diabetes Daughter Diabetes Social History Social History Household Members: Children Household Members Other:: daughter and grandson Housing: House Do you presently have visiting nurse or other home services: No (considering her grandson to be SERVICE DELIVERY DIRECTOR) Unable to assess alcohol history related to: Unable to respond and Unknown Alcohol intake: never Comment: camera in place Patient Tobacco Use Status: Never used Tobacco Smoked in Last 30 Days: No e-Cigarette/Vaping Use: Never Used Second Hand Smoke Exposure: No Use of substances other than those prescribed or required for medical reasons: No Advance Directives: Yes Advance Directives on File: Yes Advance Directives Date on File: 01/04/23 service: No Current occupational status: disabled Physical Exam ED Vital Signs: Vital Signs - 24 hr 09/11/24 18:14 09/11/24 21:05 09/11/24 21:06 Temperature 97.7 F 97.7 F 97.7 F Pulse Rate 70 66 66 Respiratory Rate 18 20 20 Blood Pressure 173/54 H 110/89 110/89 Pulse Oximetry 95 95 95 Oxygen Delivery Method Room Air Room Air Room Air BMI result Body Mass Index 32.6 Const General: cooperative, healthy appearing, comfortable, no acute distress, well developed, alert, awake and Physically active Orientation/consciousness: patient oriented x3 [facility] Head: Yes normal to inspection, Yes No palpable skull fracture present, Yes normocephalic and Yes atraumatic Eyes General: appearance normal, both eyes and all related structures Neck Neck: Yes normal visual inspection, Yes full ROM, Yes no lymphadenopathy, Yes no meningeal signs, Yes trachea midline, Yes supple, No anterior neck swelling and No tender Chest Chest palpation & inspection: normal inspection of the chest and normal palpation of entire chest wall Resp Effort & Inspection: normal respiratory effort and able to speak in complete sentences Auscultation: clear to auscultation bilaterally Cardio Jugular venous distension: no JVD Heart sounds: S1 normal heart sound present and S2 normal heart sound present GI Inspection: Yes normal to inspection Palpation (GI): Soft to palpation, not firm, nontender, no guarding and not rigid General: Yes no CVA tenderness Back/Spine/Pelvis Back: no CVA tenderness and No back tenderness Skin General skin exam: no rashes or lesions noted, elasticity normal and turgor normal Neuro General: patient oriented x3, gait normal, tone normal, moves all extremities, Normal light touch and pain sensation, no meningeal signs, no focal motor deficits, CN's II-XI intact bilaterally and normal sensation to monofilament Extrem Other: Negative for any erythema, pus discharge, foul odor, crepitus, ecchymosis, deformity, calf pain, swelling, or tenderness. Positive for skin tear bleeding controlled. Vascular, motor, and neuro exam is intact. General: Yes normal to inspection, Yes full ROM and Yes capillary refill normal Psych Appearance: grossly normal, well kempt and not disheveled Medications Administered Discontinued Medications Generic Name Dose Route Start Last Admin Trade Name Freq PRN Reason Stop Dose Admin Diphtheria/Tetanus/Acell Pertussis 0.5 ml 09/11/24 19:08 09/11/24 19:27 Diphth,Pertus(Acell),Tet Adult 0.5 Ml Syringe IM 09/11/24 19:09 0.5 ml .ONCE ONE Administration Medical Decision Making Medical Decision Making MDM Narrative: 69-year-old female presents to ED for right arm skin tear caused by wheelchair 4 days ago. Wound does not look infected. Not suspecting osteomyelitis, cellulitis, fracture, dislocation, compartment syndrome, DVT, or arterial occlusion. Due to history of diabetes with discharged with antibiotics to prevent infection. Patient explained worrisome signs informed to return to the ED immediately. Differential Diagnosis Differential Diagnoses: The differential diagnosis associated with the presentation includes (Skin tear) Admission/Observation Consideration of admission/observation: Escalation of care including admission/observation considered Independent Historian Clinical information obtained from an independent historian. History obtained from or confirmed by: Other (Patient) External Record Review External record reviewed: Other (Prior visits) Prescription Management I considered prescription management with: Antibiotic Discharge Plan Discharge Clinical Impression: Skin tear of lower leg without complication Patient Disposition: Home, Self-Care Instructions: Skin Tear (ED) Additional Instructions: The skin tear looks healthy but due to history of diabetes will discharged with antibiotics to prevent infection. Return to ED for any redness, pus discharge, foul odor, bluish black discoloration, pain, fever, chills, any other concerning symptoms. Recommend follow up with primary care provider Prescriptions: New cephalexin 500 mg capsule 500 mg PO QID 7 Days Qty: 28 0RF No Action atorvastatin 80 mg tablet 80 mg PO BEDTIME clopidogrel 75 mg tablet 75 mg PO DAILY aspirin 81 mg tablet,delayed release (DR/EC) 81 mg PO BEDTIME magnesium oxide 400 mg (241.3 mg magnesium) tablet 400 mg PO DAILY sevelamer carbonate 800 mg tablet 800 mg PO TIDWM carvedilol 12.5 mg Tablet 12.5 mg PO BIDWM Qty: 60 1RF Protocol: Hold for SBP/HR < HOLD for SBP < : 90 HOLD for HR < : 60 acetaminophen 325 mg capsule 650 mg PO Q6H PRN (Reason: pain) Qty: 20 0RF melatonin 5 mg tablet 5 - 10 mg PO BEDTIME PRN (Reason: Sleep) cholecalciferol (vitamin D3) 1,250 mcg (50,000 unit) capsule 1,250 mcg PO WEN Rx Instructions: take on Monday pantoprazole 40 mg tablet,delayed release (DR/EC) 40 mg PO DAILY@629 Rx Instructions: take one tablet half an hour before breakfast albuterol sulfate 90 mcg/actuation aerosol powdr breath activated 2 inh inhalation Q6H PRN (Reason: shortness of breath or wheezing) insulin glargine [Lantus Solostar U-100 Insulin] 100 unit/mL (3 mL) insulin pen 20 unit subcut DAILY sennosides [Natural Senna Laxative] 8.6 mg tablet 17.2 mg PO BEDTIME Qty: 60 3RF (DME) lancets [OneTouch Delica Plus Lancet] 33 gauge misc See Rx Instructions .ROUTE TID Qty: 100 Rx Instructions: As directed (DME) pen needle, diabetic [Pentips Pen Needle] 32 gauge x 5/32 needle See Rx Instructions .ROUTE DIRECTED Qty: 1200 Rx Instructions: As directed (DME) OneTouch Ultra Test Strip See Rx Instructions .ROUTE TID Qty: 10 Rx Instructions: As directed insulin aspart U-100 [Novolog FlexPen U-100 Insulin] 100 unit/mL (3 mL) insulin pen See Protocol subcut NEEDED PRN (Reason: bs >200) Protocol: Insulin Correction Scale Less than or equal to 110 ---- Give (units): 0 111 to 150 Give (units): 0 151 to 200 Give (units): 2 201 to 250 Give (units): 4 251 to 300 Give (units): 6 301 to 350 Give (units): 8 Greater than 350 Give (units): 10 Call MD if Blood Glucose > : 350 Rx Instructions: 8-12 units SLIDING SCALE Interventions: ED Discharge Assessment Last Done: 09/11/24 21:06 Discharge Date/Time: 09/11/24 21:06 Print Language: Algerian
[2024-09-11] MEDS: Diphth,Pertus(ACell),Tet Adult 0.5 ML SYRINGE IM (19:27)
[2024-09-11 21:05] VITALS: BP 110/89; PULSE 66; RESP 20; TEMP 36.5; O2SAT 95
[2024-09-11 21:06] VITALS: BP 110/89; PULSE 66; RESP 20; TEMP 36.5; O2SAT 95
== END 2024-09-11 21:06 | disposition home or self-care (01) ==
PROVIDERS: Emergency Provider Internal Medicine; PCP Internal Medicine
DX: S81.811A Laceration without foreign body, right lower leg, initial encounter (principal); W22.8XXA Striking against or struck by other objects, initial encounter; E11.9 Type 2 diabetes mellitus without complications; Y93.89 Activity, other specified; Y92.039 Unspecified place in apartment as the place of occurrence of the external cause; Y99.9 Unspecified external cause status; Z23 Encounter for immunization
CPT/HCPCS: 90471; 90715; 99284